=== PATIENT | male | born 1960 | race Caucasian/White ===

== ENCOUNTER 2016-06-29 18:27 | Observation (INO) | payer OTHER ==
[~2016-06-29] VITALS: Ht 180.3 cm; Wt 113.7 kg
[~2016-06-29 18:27] MED LIST: AMLO-110 PO; ASPEC81 PO; CLOP1TAB15 PO; CRS20 PO; GLC500 PO; HMLI SC; INSDGI SC; LISI40TA PO; METO25TA3 PO; NTRGSL/4 UT
[2016-06-29] MEDS ORDERED: SODIUM CHLORIDE 0.9% 1000ML 1,000 ML IV STA (18:57)
[2016-06-29] MEDS ORDERED: ALBUT/IPRATROP 3MG/0.5MG NEB 3 ML VIAL INH STA (18:59)
[2016-06-29] MEDS ORDERED: METF1000 PO (19:06)
[2016-06-29] MEDS ORDERED: INSU100I SQ (19:06)
[2016-06-29] MEDS ORDERED: ROSU20TA22 PO (19:06)
[2016-06-29] MEDS ORDERED: ASPI81TA21 PO (19:06)
[2016-06-29] MEDS ORDERED: INSDGI SC ×2 (19:06)
[2016-06-29] MEDS ORDERED: PLV75 PO (19:06)
[2016-06-29] MEDS ORDERED: WARF7.5T4 PO (19:07)
[2016-06-29] MEDS ORDERED: WARF5TAB7 PO (19:07)
--- NOTE | 2016-06-29 19:20 | DIAGNOSTIC IMAGING REPORT ---
CHEST ONE VIEW PORTABLE CLINICAL HISTORY: Shortness of breath. Respiratory distress. COMPARISON STUDY: Chest radiograph November 27, 2014. FINDINGS: Lung volumes are mildly diminished. This is unchanged. The patient is rotated. There are median sternotomy wires and clips from bypass grafting. There is no evidence of pulmonary edema. No consolidation is present. Mild cardiomegaly is unchanged. IMPRESSION: No acute findings. Stable cardiomegaly without evidence of pulmonary edema. Electronically signed by: Pal Blunt M.D. 06/29/2016 7:18 PM Dictated Date/Time: 06/29/2016 7:18 PM
--- NOTE | 2016-06-29 19:36 | EMERGENCY ROOM VISIT NOTE ---
History Report prepared by Hillary: Mil Urbina Under the Supervision of: Dr. Giorgio Mendiola D.O. First contact with patient: 18:52 Chief Complaint: RESPIRATORY PROBLEMS Stated Complaint: POSSIBLE PNEUMONIA Nursing Triage Summary: agnes note: pt to the ED with c/o cough and fever for several days and was sent over from dr nagy office History of Present Illness The patient is a 56 year old male who presents to the Emergency Room with complaints of persistent fever and fatigue that began one day prior to arrival. The patient states that his fever began last night and reached a temperature of 102.5 degrees. He has also been experiencing a persistent cough, which is worsened when he is laying flat. He denies any recent chest pain, or swelling in his legs. He has not vomited recently. The patient did have a flu shot this year, but did not receive a pneumonia shot. He has never had a diagnosis of pneumonia. The patient does have a history of triple bypass surgery, and is an insulin dependent diabetic. 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 A total of 10 systems reviewed and were otherwise negative. Past Medical & Surgical Medical Problems: (1) Benign hypertension (2) Carotid artery stenosis (3) Cerebrovascular disease (4) Coronary artery disease (5) Diab W Ophthal Manifest, Type Ii Or Unspec Type, Not Uncntrl (6) Diabetes mellitus type 2 (7) Diabetic retinopathy (8) Dyslipidemia (9) Old myocardial infarction (10) Retinal edema Surgical Problems: (1) AORTOCORONARY BYPASS Family History Diabetes mellitus Heart disease Hypertension Social History Smoking Status: Never Smoker Alcohol Use: none Drug Use: none Marital Status: Housing Status: lives with family Occupation Status: employed Current/Historical Medications Scheduled Amlodipine (Norvasc), 5 MG PO QAM Aspirin Enteric Coated (Ecotrin Or Generic), 81 MG PO QAM Azithromycin (Zithromax Z-Abdulaziz), 1 PKT PO UD Clopidogrel Bisulfate (Clopidogrel), 75 MG PO QAM Insulin Glargine (Lantus), 36 UNITS SC QAM Insulin Glargine (Lantus), 30 UNITS SC QPM Insulin Lispro (Human) (Humalog), 16 UNIT SQ AC Lisinopril (Zestril), 40 MG PO QAM Metformin Hcl (Glucophage), 1,000 MG PO BID Metoprolol Succ (Toprol Xl) (Toprol-Xl), 50 MG PO BID Nitroglycerin (Nitrostat), 0.4 MG UT PRN Rosuvastatin Calcium (Rosuvastatin Calcium), 20 MG PO QPM Warfarin Sodium (Warfarin Sodium), 0 PO UD Scheduled PRN Guaifenesin-Codeine (Robitussin-Ac Syrup), 5-10 ML PO Q4H PRN for Cough Allergies Coded Allergies: No Known Allergies (Unverified , 06/29/16) Physical Exam Vital Signs Date Time Temp Pulse Resp B/P Pulse Ox O2 Delivery O2 Flow Rate FiO2 06/29/16 22:29 94 18 144/85 94 Room Air 06/29/16 20:49 94 24 150/77 94 Room Air 06/29/16 19:17 96 06/29/16 19:14 95 Room Air 06/29/16 19:14 95 Room Air 06/29/16 18:30 37.0 96 18 165/86 95 Physical Exam GENERAL: Patient is awake, alert, and in no acute distress. Patient is resting comfortably and showing no signs of anxiety EYES: The conjunctivae are clear. The pupils are round and reactive. EARS, NOSE, MOUTH AND THROAT: Clear Rhinorrhea noted bilaterally. The nose is without any evidence of any deformity. Mucous membranes are moist tongue is midline. No swelling or erythema in the posterior oropharynx. NECK: The neck is nontender and supple. RESPIRATORY: Lung sounds diminished at both bases. No tachypnea, no conversational dyspnea noted. Normal respiratory effort is noted there is no evidence of wheezing rhonchi or rales CARDIOVASCULAR: Systolic murmur noted. Regular rate and rhythm noted there no rubs or gallops normal S1 normal S2 GASTROINTESTINAL: The abdomen is soft. Bowel sounds are present in all quadrants. Abdomen is nontender MUSCULOSKELETAL/EXTREMITIES: There is no evidence of gross deformity full range of motion is noted in the hips and shoulders SKIN: Trace pedal edema noted bilaterally. There is no obvious evidence of any rash. There are no petechiae, pallor or cyanosis noted. NEUROLOGIC: Patient is awake alert and oriented x3 strength is symmetric patellar reflexes are 2+ bilaterally Medical Decision & Procedures ER Provider Diagnostic Interpretation: X ray results and stated below per my interpretation and radiology interpretation. Other radiology results per my review and radiologist interpretation: CHEST ONE VIEW PORTABLE CLINICAL HISTORY: Shortness of breath. Respiratory distress. COMPARISON STUDY: Chest radiograph November 27, 2014. FINDINGS: Lung volumes are mildly diminished. This is unchanged. The patient is rotated. There are median sternotomy wires and clips from bypass grafting. There is no evidence of pulmonary edema. No consolidation is present. Mild cardiomegaly is unchanged. IMPRESSION: No acute findings. Stable cardiomegaly without evidence of pulmonary edema. Electronically signed by: Pal Blunt M.D. 06/29/2016 7:18 PM Dictated Date/Time: 06/29/2016 7:18 PM Laboratory Results 06/29/16 19:32 Red Blood Count 5.41, Mean Corpuscular Volume 76.2, Mean Corpuscular Hemoglobin 26.1, Mean Corpuscular Hemoglobin Concent 34.2, Mean Platelet Volume 9.8, Neutrophils (%) (Auto) 76.6, Lymphocytes (%) (Auto) 16.1, Monocytes (%) (Auto) 6.6, Eosinophils (%) (Auto) 0.2, Basophils (%) (Auto) 0.3, Neutrophils # (Auto) 8.54, Lymphocytes # (Auto) 1.80, Monocytes # (Auto) 0.74, Eosinophils # (Auto) 0.02, Basophils # (Auto) 0.03 06/29/16 19:32 Test 06/29/16 19:28 06/29/16 19:32 06/29/16 19:37 06/29/16 21:36 Influenza Type A Antigen Neg for Influ A (NEG) Influenza Type B Antigen Neg for Influ B (NEG) White Blood Count 11.15 K/uL (4.8-10.8) Red Blood Count 5.41 M/uL (4.7-6.1) Hemoglobin 14.1 g/dL (14.0-18.0) Hematocrit 41.2 % (42-52) Mean Corpuscular Volume 76.2 fL (80-100) Mean Corpuscular Hemoglobin 26.1 pg (25-34) Mean Corpuscular Hemoglobin Concent 34.2 g/dl (32-36) Platelet Count 255 K/uL (130-400) Mean Platelet Volume 9.8 fL (7.4-10.4) Neutrophils (%) (Auto) 76.6 % Lymphocytes (%) (Auto) 16.1 % Monocytes (%) (Auto) 6.6 % Eosinophils (%) (Auto) 0.2 % Basophils (%) (Auto) 0.3 % Neutrophils # (Auto) 8.54 K/uL (1.4-6.5) Lymphocytes # (Auto) 1.80 K/uL (1.2-3.4) Monocytes # (Auto) 0.74 K/uL (0.11-0.59) Eosinophils # (Auto) 0.02 K/uL (0-0.5) Basophils # (Auto) 0.03 K/uL (0-0.2) RDW Standard Deviation 40.9 fL (36.4-46.3) RDW Coefficient of Variation 14.7 % (11.5-14.5) Immature Granulocyte % (Auto) 0.2 % Immature Granulocyte # (Auto) 0.02 K/uL (0.00-0.02) Prothrombin Time 27.8 SECONDS (9.0-12.0) Prothromb Time International Ratio 2.5 (0.9-1.1) Activated Partial Thromboplast Time 43.3 SECONDS (21.0-31.0) Partial Thromboplastin Ratio 1.7 Anion Gap 15.0 mmol/L (3-11) Est Creatinine Clear Calc Drug Dose 107.7 ml/min Estimated GFR () 100.6 Estimated GFR (Non- 86.8 BUN/Creatinine Ratio 14.0 (10-20) Calcium Level 8.9 mg/dl (8.5-10.1) Total Bilirubin 0.5 mg/dl (0.2-1) Aspartate Amino Transf (AST/SGOT) 13 U/L (15-37) Alanine Aminotransferase (ALT/SGPT) 15 U/L (12-78) Alkaline Phosphatase 56 U/L (45-117) Total Creatine Kinase 353 U/L (39-308) Creatine Kinase MB 2.4 ng/ml (0.5-3.6) Creatine Kinase MB Ratio 0.7 (0-3.0) Pro-B-Type Natriuretic Peptide 1883 pg/ml (0-900) Total Protein 7.3 gm/dl (6.4-8.2) Albumin 3.4 gm/dl (3.4-5.0) Globulin 3.9 gm/dl (2.5-4.0) Albumin/Globulin Ratio 0.9 (0.9-2) Bedside Lactic Acid Venous 1.63 mmol/L (0.90-1.70) Troponin I 0.041 ng/ml (0-0.045) Laboratory results per my review. Medications Administered Medications (Trade) Dose Ordered Sig/Gabriel Route Start Time Stop Time Status Last Admin Dose Admin Sodium Chloride (Nss 1000ml) 1,000 ml @ 999 mls/hr Q1H1M STAT IV 06/29/16 18:57 06/29/16 19:57 DC 06/29/16 19:50 999 MLS/HR Albuterol/ Ipratropium (Duoneb) 3 ml NOW STAT INH 06/29/16 18:59 06/29/16 19:01 DC 06/29/16 19:53 3 ML Levofloxacin (Levaquin Tab) 750 mg NOW STAT PO 06/29/16 22:18 06/29/16 22:19 DC 06/29/16 22:27 750 MG ECG Indication: weakness Rate (beats per minute): 96 Rhythm: normal sinus Findings: nonspecific-ST abn, other (Poor R-wave progression) Comparison ECG Date: 11/29/2015 Change: no significant change Change: Repeat EKG was taken for this visit. This EKG showed no significant changes from previous. ED Course 1851: The patient was evaluated in room B2. A complete history and physical examination were performed. 7: Ordered Sodium Chloride 1000 mL @ 999 mL/hr IV. 1858: Ordered Albuterol INH 3 mL. 2204: I checked on the patient at this time. He is resting in bed. I discussed the treatment plan with him, he understands and is agreeable. 4: I discussed the case with Dr. Chavez [facility] Hospitalist, he will evaluate the patient for further treatment. Medical Decision The patient's history was concerning for headache. Differential diagnosis: Etiologies such as migraine headache, meningitis, sinusitis, CO exposure, ICH, SAH, infection, tumor, headache, sinus thrombosis, arterial dissection, as well as others were entertained. Nursing notes reviewed. The patient is a 56-year-old male who presented to the emergency department for an evaluation of difficulty breathing. The patient had a cough and difficulty breathing. He was seen by his primary care physician and sent to the emergency department for the possibility of pneumonia. The patient does have a significant cardiac history. His EKG was abnormal but appeared very similar to previous. His initial EKG was not over the abnormal limit but a repeat EKG was slightly elevated compared to previous. I discussed the patient's laboratory and radiographic studies with the patient and his significant other. I also discussed his case with the on-call [facility] hospitalist group. They've agreed to evaluate the patient in the emergency department for further management and disposition. The patient also felt that he may be dehydrated. For this reason he was even IV fluids. Consults Time Called: 2226 Consulting Physician: Dr. Scott Sanchez Returned Call: [phone] I discussed the case with Dr. Scott Sanchez, he will evaluate the patient for further treatment. Impression Primary Impression: Elevated troponin Additional Impressions: Bronchitis Chest discomfort Scribe Attestation The scribe's documentation has been prepared under my direction and personally reviewed by me in its entirety. I confirm that the note above accurately reflects all work, treatment, procedures, and medical decision making performed by me. Departure Information Dispostion Being Evaluated By Hospitalist Prescriptions Guaifenesin-Codeine (ROBITUSSIN-AC SYRUP) 1 Syp Syp 5-10 ML PO Q4H Y for Cough for 8 Days, #120 ML Caution: medication causes drowsiness Prov: Leda George, DO 06/30/16 Azithromycin (ZITHROMAX Z-ABDULAZIZ) 250 Mg Tab 1 PKT PO UD for 5 Days, #6 TAB Take two tabs PO on first day, then one tab daily until gone. Please follow packet instructions. Prov: Leda George, DO 06/30/16 Referrals Dereck Zaman D.O. (PCP) Patient Instructions [facility] Problem Qualifiers
[2016-06-29 19:50] LABS: BASO % 0.3 %; BASO ABS # 0.03 K/uL (0-0.2); COMPLETE YES; EOS % 0.2 %; HEMATOCRIT 41.2 % (42-52); IG% 0.2 %; LYMPH % 16.1 %; MEAN CELL VOLUME 76.2 fL (80-100); MEAN CORPUSCULAR HEMOGLOBIN 26.1 pg (25-34); MEAN CORPUSCULAR HGB CONC 34.2 g/dl (32-36); MEAN PLATELET VOLUME 9.8 fL (7.4-10.4); MONO % 6.6 %; NEUT % 76.6 %; PLATELET COUNT 255 K/uL (130-400); RED BLOOD COUNT 5.41 M/uL (4.7-6.1); WHITE BLOOD COUNT 11.15 K/uL (4.8-10.8)
[2016-06-29 20:04] LABS: INR 2.5 (0.9-1.1); PARTIAL THROMBOPLASTIN RATIO 1.7; PROTHROMBIN TIME (PATIENT) 27.8 SECONDS (9.0-12.0)
[2016-06-29 20:08] LABS: CALCIUM 8.9 mg/dl (8.5-10.1); CREATININE 0.96 mg/dl (0.60-1.40); POTASSIUM 3.9 mmol/L (3.5-5.1)
[2016-06-29 20:13] LABS: ALB/GLOB RATIO 0.9 (0.9-2); CKMB/CK RATIO 0.7 (0-3.0)
[2016-06-29] MEDS ORDERED: LEVOFLOXACIN 250 MG TAB PO STA (22:18)
--- NOTE | 2016-06-29 22:47 | History and Physical ---
History & Physical Date & Time of Service: Jun 29, 2016 at 22:47 . Chief Complaint: fever, cough . Primary Care Physician: Dereck Zaman D.O. . History of Present Illness Source: patient, clinic records, hospital records (56 YO) 56 YO [address] followed by Dr. Zaman. History of coronary artery disease, DM type 2, and other problems noted below. Developed nonproductive cough about 2 weeks ago. Tried Tessalon Perles and Mucinex without benefit. Cough worsened, but remained nonproductive. Spouse noted some wheezing. No significant SOB. No associated chest pain. Developed temp as high as 102.5 over past 24 hours. Seen in clinic and referred to ED for further evaluation. . Past Medical/Surgical History Chronic Medical Problems: (1) Anticoagulated on warfarin Permanent Comment: for embolic stroke Status: Chronic (2) Benign hypertension Status: Chronic (3) Carotid artery stenosis Status: Chronic (4) Cerebrovascular disease Status: Chronic (5) Coronary artery disease Permanent Comment: s/p UT, s/p CABG, s/p PCI Status: Chronic (6) Diabetes mellitus type 2 Status: Chronic (7) Diabetic retinopathy Status: Chronic (8) Dyslipidemia Status: Chronic (9) History of pancreatitis Status: Chronic Surgical Problems: (1) Status post coronary artery bypass grafting Status: Chronic (2) Status post coronary artery stent placement Status: Chronic . Family History Diabetes mellitus Heart disease Hypertension Social History Smoking Status: Never Smoker Alcohol Use: none Drug Use: none Marital Status: Housing status: lives with family Occupational Status: employed Immunizations History of Influenza Vaccine: Yes Influenza Vaccine Date: Mar 10, 2011 History of Tetanus Vaccine?: YES-UNKNOWN DATE, "RECENTLY" Tetanus Immunization Date: Nov 22, 2007 History of Pneumococcal: No Pneumococcal Date: May 08, 2001 History of Hepatitis B Vaccine: No Allergies Coded Allergies: No Known Allergies (Unverified , 06/29/16) Home Medications Scheduled Amlodipine (Norvasc), 5 MG PO QAM Aspirin Enteric Coated (Ecotrin Or Generic), 81 MG PO QAM Azithromycin (Zithromax Z-Abdulaziz), 1 PKT PO UD Clopidogrel Bisulfate (Clopidogrel), 75 MG PO QAM Insulin Glargine (Lantus), 36 UNITS SC QAM Insulin Glargine (Lantus), 30 UNITS SC QPM Insulin Lispro (Human) (Humalog), 16 UNIT SQ AC Lisinopril (Zestril), 40 MG PO QAM Metformin Hcl (Glucophage), 1,000 MG PO BID Metoprolol Succ (Toprol Xl) (Toprol-Xl), 50 MG PO BID Nitroglycerin (Nitrostat), 0.4 MG UT PRN Rosuvastatin Calcium (Rosuvastatin Calcium), 20 MG PO QPM Warfarin Sodium (Warfarin Sodium), 0 PO UD Scheduled PRN Guaifenesin-Codeine (Robitussin-Ac Syrup), 5-10 ML PO Q4H PRN for Cough Review of Systems Constitutional: + chills, + fever, + weight loss (few lbs intentionally), No sweats Eyes: No diplopia, No worsening of vision ENT: No hearing loss, No nasal symptoms, No sore throat Respiratory: + problem reported (as noted above) Cardiovascular: No chest pain, No edema Abdomen: No GI bleeding, No diarrhea, No nausea, No pain, No vomiting Musculoskeletal: No joint pain Genitourinary - Male: + urinary frequency, No dysuria, No hematuria Neurologic: + problem reported (no headache; no diabetic neuropathy) Endocrine: No excessive thirst, No excessive urination Hematologic / Lymphatic: No abnormal bleeding/bruising, No swollen lymph nodes Integumentary: No itch, No new/changing skin lesions, No rash Physical Exam Vital Signs Date Time Temp Pulse Resp B/P Pulse Ox O2 Delivery O2 Flow Rate FiO2 06/29/16 22:29 94 18 144/85 94 Room Air 06/29/16 20:49 94 24 150/77 94 Room Air 06/29/16 19:17 96 06/29/16 19:14 95 Room Air 06/29/16 19:14 95 Room Air 06/29/16 18:30 37.0 96 18 165/86 95 General Appearance: WD/WN, no apparent distress Head: normocephalic, atraumatic Eyes: normal inspection, PERRL, EOMI, sclerae normal, + pertinent finding ( conjunctivae pink) ENT: normal ENT inspection, hearing grossly normal, TMs normal, pharynx normal Neck: supple, no adenopathy, thyroid normal, no JVD, no carotid bruits, trachea midline Respiratory/Chest: no respiratory distress, no accessory muscle use, + rhonchi (few scattered rhonchi), + wheezing (diffuse mild wheezing) Cardiovascular: regular rate, rhythm, no edema, no gallop, no JVD, normal peripheral pulses, + systolic murmur (III/ systolic murmur at base) Abdomen/GI: normal bowel sounds, non tender, soft, no organomegaly, no pulsatile mass Extremities/Musculoskelatal: normal inspection, no calf tenderness, normal capillary refill, no pedal edema Neurologic/Psych: biologist aide II-XII nml as tested (PERRL, EOMI, no facial palsy, no dysarthria) Skin: normal color, warm/dry, no rash Lymphatic: no adenopathy Diagnostics Laboratory Results Results Past 24 Hours Test 06/29/16 19:28 06/29/16 19:32 06/29/16 19:37 06/29/16 21:36 Range/Units Influenza Type A Antigen Neg for Influ A NEG Influenza Type B Antigen Neg for Influ B NEG White Blood Count 11.15 4.8-10.8 K/uL Red Blood Count 5.41 4.7-6.1 M/uL Hemoglobin 14.1 14.0-18.0 g/dL Hematocrit 41.2 42-52 % Mean Corpuscular Volume 76.2 80-100 fL Mean Corpuscular Hemoglobin 26.1 25-34 pg Mean Corpuscular Hemoglobin Concent 34.2 32-36 g/dl Platelet Count 255 130-400 K/uL Mean Platelet Volume 9.8 7.4-10.4 fL Neutrophils (%) (Auto) 76.6 % Lymphocytes (%) (Auto) 16.1 % Monocytes (%) (Auto) 6.6 % Eosinophils (%) (Auto) 0.2 % Basophils (%) (Auto) 0.3 % Neutrophils # (Auto) 8.54 1.4-6.5 K/uL Lymphocytes # (Auto) 1.80 1.2-3.4 K/uL Monocytes # (Auto) 0.74 0.11-0.59 K/uL Eosinophils # (Auto) 0.02 0-0.5 K/uL Basophils # (Auto) 0.03 0-0.2 K/uL RDW Standard Deviation 40.9 36.4-46.3 fL RDW Coefficient of Variation 14.7 11.5-14.5 % Immature Granulocyte % (Auto) 0.2 % Immature Granulocyte # (Auto) 0.02 0.00-0.02 K/uL Prothrombin Time 27.8 9.0-12.0 SECONDS Prothromb Time International Ratio 2.5 0.9-1.1 Activated Partial Thromboplast Time 43.3 21.0-31.0 SECONDS Partial Thromboplastin Ratio 1.7 Sodium Level 136 136-145 mmol/L Potassium Level 3.9 3.5-5.1 mmol/L Chloride Level 98 98-107 mmol/L Carbon Dioxide Level 23 21-32 mmol/L Anion Gap 15.0 3-11 mmol/L Blood Urea Nitrogen 13 7-18 mg/dl Creatinine 0.96 0.60-1.40 mg/dl Est Creatinine Clear Calc Drug Dose 107.7 ml/min Estimated GFR () 100.6 Estimated GFR (Non- 86.8 BUN/Creatinine Ratio 14.0 10-20 Random Glucose 170 70-99 mg/dl Calcium Level 8.9 8.5-10.1 mg/dl Total Bilirubin 0.5 0.2-1 mg/dl Aspartate Amino Transf (AST/SGOT) 13 15-37 U/L Alanine Aminotransferase (ALT/SGPT) 15 12-78 U/L Alkaline Phosphatase 56 45-117 U/L Total Creatine Kinase 353 39-308 U/L Creatine Kinase MB 2.4 0.5-3.6 ng/ml Creatine Kinase MB Ratio 0.7 0-3.0 Troponin I 0.030 0.041 0-0.045 ng/ml Pro-B-Type Natriuretic Peptide 1883 0-900 pg/ml Total Protein 7.3 6.4-8.2 gm/dl Albumin 3.4 3.4-5.0 gm/dl Globulin 3.9 2.5-4.0 gm/dl Albumin/Globulin Ratio 0.9 0.9-2 Bedside Lactic Acid Venous 1.63 0.90-1.70 mmol/L Microbiology Results 06/29/16 Blood Culture, Received Pending 06/29/16 Blood Culture, Received Pending Diagnostic Radiology CHEST ONE VIEW PORTABLE IMPRESSION: No acute findings. Stable cardiomegaly without evidence of pulmonary edema. Electronically signed by: Pal Blunt M.D. 06/29/2016 7:18 PM . EKG EKG performed at 19:10 reviewed and demonstrated NSR at 96 / minute, ST depression + inverted T-waves I, aVL, Q-waves + 1-[address] elevation III, aVF, poor R-wave progression. Tracing compared to 11/28/14- rate now faster, ST and T-wave changes similar in appearance. . Impression Assessment and Plan FEVER / COUGH No infiltrates on chest x-ray. Probable bronchitis. ROUNDER HAND swab for influenza A/B Ag negative in ED; check PCR. Received dose of levofloxacin in ED; will continue tentatively for 48 hrs pending results. BRONCHOSPASM Mild diffuse wheezing. Albuterol MDI PRN. Consider steroids if symptoms worsen. CORONARY ARTERY DISEASE History of CAD, s/p CABG and subsequent PCI. No anginal symptoms. CPK slightly elevated- suspect nonspecific elevation due to febrile illness. Troponins in ED negative. Check repeat cardiac markers in a.m. Continue aspirin, clopidogrel, metoprolol, amlodipine, statin. SYSTOLIC HEART MURMUR Followed by Cardiology for moderate . HYPERTENSION Continue metoprolol, amlodipine. HISTORY STROKE History of nonhemorrhagic stroke, apparently embolic. Continue warfarin. SLEEP APNEA No longer using CPAP. DM TYPE 2 Fairly well-controlled at home. Check hemoglobin A1C. Hold metformin during hospital stay. Lantus / NovoLog per protocol. VACCINATION STATUS Has received pneumococcal vaccination in the past and influenza vaccination this season. VTE PROPHYLAXIS Moderate risk for VTE. Continue warfarin. RESUSCITATION STATUS Full resuscitation. DISPOSITION Observation status on Telemetry Unit. Expected discharge to home. Internal Medicine follow-up with Dr. Zaman. Cardiology follow-up with Dr. Huff. . VTE Prophylaxis Risk Level: Moderate Given or contraindicated: Warfarin (Coumadin) Additional Copies To Meliton Huff D.O.; Dereck Zaman D.O.
[2016-06-29] MEDS ORDERED: WARF-246 PO (22:58)
[2016-06-29] MEDS ORDERED: NITROGLYCERIN 0.4 MG SL PER TAB CHARGE SL PRN (23:00)
[2016-06-29] MEDS ORDERED: ACETAMINOPHEN 325 MG TAB PO PRN (23:00)
[2016-06-29] MEDS ORDERED: WARFARIN SOD 7.5 MG TAB PO ONE (23:45)
[2016-06-29] MEDS ORDERED: INSULIN GLARGINE SOLOSTAR 100 UNITS/ML 3 ML PEN SC ONE (23:45)
[2016-06-29] MEDS ORDERED: ROSUVASTATIN CALCIUM 20 MG TAB PO ONE (23:45)
[2016-06-30] MEDS ORDERED: ALBUTEROL HFA 8 GM INHALER INH PRN
[2016-06-30] MEDS ORDERED: METOPROLOL SUCC 25MG EXT REL TAB PO ONE (00:09)
[2016-06-30] MEDS ORDERED: IV FLUIDS COMPLETED PRN (00:30)
[2016-06-30 00:40] VITALS: BP 126/76; PULSE 102; TEMP 37.3; O2SAT 94; BMI 35.0
[2016-06-30] MEDS ORDERED: DEXTROSE 50% 50 ML SYR IV PRN (01:30)
[2016-06-30] MEDS ORDERED: GLUCAGON FOR INJ 1 MG VIAL SQ PRN (01:30)
[2016-06-30] MEDS ORDERED: GLUCOSE 10 TABS/TUBE PO PRN (01:30)
[2016-06-30] MEDS ORDERED: GLUCOSE 40% GEL 15 GM TUBE PO PRN (01:30)
[2016-06-30 04:00] VITALS: O2SAT 94
[2016-06-30 04:24] LABS: INFLUENZA A PCR Neg for Influ A (NEG); INFLUENZA B PCR Neg for Influ B (NEG)
[2016-06-30 04:43] LABS: URINE APPEARANCE CLEAR (CLEAR); URINE BILIRUBIN NEG (NEG); URINE COLOR YELLOW; URINE NITRITE NEG (NEG); URINE SPECIFIC GRAVITY 1.013 (1.000-1.030); UROBILINOGEN NEG (NEG)
[2016-06-30 04:48] LABS: MANUAL MICROSCOPIC REQUIRED? NO; REVIEW REQ? NO
[2016-06-30] MEDS ORDERED: GUAIFENESIN SUGAR FREE 200 MG/10 ML UDC PO PRN (05:45)
[2016-06-30 06:39] LABS: HEMATOCRIT 37.9 % (42-52); MEAN CELL VOLUME 76.3 fL (80-100); MEAN CORPUSCULAR HEMOGLOBIN 25.8 pg (25-34); MEAN CORPUSCULAR HGB CONC 33.8 g/dl (32-36); MEAN PLATELET VOLUME 9.7 fL (7.4-10.4); PLATELET COUNT 208 K/uL (130-400); RED BLOOD COUNT 4.97 M/uL (4.7-6.1); WHITE BLOOD COUNT 9.36 K/uL (4.8-10.8)
[2016-06-30 06:41] LABS: ESTIMATED AVERAGE GLUCOSE 223 mg/dl; HA1C FLAG Normal (Normal)
[2016-06-30 06:50] LABS: INR 2.4 (0.9-1.1); PROTHROMBIN TIME (PATIENT) 26.1 SECONDS (9.0-12.0)
[2016-06-30 07:12] LABS: BUN/CREATININE RATIO 11.6 (10-20); CALCIUM 8.4 mg/dl (8.5-10.1); POTASSIUM 3.8 mmol/L (3.5-5.1)
[2016-06-30 07:16] LABS: CKMB/CK RATIO 0.4 (0-3.0)
[2016-06-30 08:11] VITALS: BP 121/71; PULSE 96; TEMP 36.9; O2SAT 94
[2016-06-30] MEDS: INSULIN ASPART 100 UNITS/ML 3 ML PEN SC SCH ×2 (08:29→12:33)
[2016-06-30] MEDS ORDERED: ASPIRIN 81 MG ECTAB PO SCH (09:00)
[2016-06-30] MEDS ORDERED: LISINOPRIL 40 MG TAB PO SCH (09:00)
[2016-06-30] MEDS ORDERED: METOPROLOL SUCC 25MG EXT REL TAB PO SCH (09:00)
[2016-06-30] MEDS ORDERED: CLOPIDOGREL BISULFATE 75 MG TAB PO SCH (09:00)
[2016-06-30] MEDS ORDERED: AMLODIPINE BESYLATE 5 MG TAB PO SCH (09:00)
[2016-06-30] MEDS ORDERED: INSULIN GLARGINE SOLOSTAR 100 UNITS/ML 3 ML PEN SC SCH ×2 (09:00→21:00)
[2016-06-30 10:00] VITALS: Ht 180.3 cm; Wt 113.7 kg
[2016-06-30 10:25] LABS: URINE APPEARANCE CLEAR (CLEAR); URINE BILIRUBIN NEG (NEG); URINE COLOR YELLOW; URINE EPITHELIAL CELL AUTO 0-5 /lpf (0-5); URINE NITRITE NEG (NEG); URINE SPECIFIC GRAVITY 1.019 (1.000-1.030); UROBILINOGEN NEG (NEG); ZZUR CULT IF INDIC CLEAN CATCH NO
[2016-06-30 10:35] LABS: MANUAL MICROSCOPIC REQUIRED? NO; REVIEW REQ? NO
[2016-06-30 11:20] VITALS: BP 169/87; PULSE 95; TEMP 38.3; O2SAT 94
[2016-06-30] MEDS ORDERED: GUAISYP5 PO (11:27)
[2016-06-30] MEDS ORDERED: AZITTAB PO (11:27)
[2016-06-30 12:32] VITALS: TEMP 37.9
--- NOTE | 2016-06-30 12:36 | Discharge Instructions ---
Discharge Instructions Admission Reason for Admission: Asthmatic Bronchitis;Coronary Artery Disease Discharge Discharge Diagnosis / Problem: URTI Discharge Goals Goal(s): Prevent Disease Progression Activity Recommendations Activity Limitations: resume your previous activity . Instructions / Follow-Up Instructions / Follow-Up Please take all medications as instructed. You have a follow-up appointment with Dr. Zaman for Henry, 07/05 @ 1250. Please bring all paperwork from this hospitalization and arrive 15 minutes early. At discharge your blood cultures were still pending. This can be reviewed in follow-up. During your hospitalization you had a 10 second run of atrial tachycardia that occurred once. You are currently on a beta-josé (Toprol) which is the treatment for this, however, I would recommend a follow-up appointment with Dr. Huff or a call to his office just to make him aware with your history. It was a pleasure taking care of you! Call if you have any questions or problems. You can reach a [facility] hospitalist on duty at [facility] 24 hours a day by calling [phone]. Take care of yourself. Leda George DO [facility] Hospitalist Current Hospital Diet Patient's current hospital diet: AHA Diet (Heart Healthy), Diabetes Type 2 Diet Discharge Diet Recommended Diet: AHA Diet (Heart Healthy), Diabetes Type 2 Diet Procedures Procedures Performed: None Pending Studies Studies pending at discharge: yes List of pending studies: Blood cultures Laboratory Results Hemoglobin A1c Test 06/30/16 06:18 Range/Units Estimated Average Glucose 223 mg/dl Hemoglobin A1c 9.4 H 4.5-5.6 % Medical Emergencies . Who to Call and When: Medical Emergencies: If at any time you feel your situation is an emergency, please call 911 immediately. . Non-Emergent Contact Non-Emergency issues call your: Primary Care Provider . . "Provider Documentation" section prepared by Leda George. VTE Core Measure Inpt VTE Proph given/why not?: Warfarin (Coumadin) [place] Drug Monitoring Program Search Results: patient reviewed within database, no issues identified
[2016-06-30 13:33] VITALS: BP 169/87; PULSE 95; TEMP 37.9; O2SAT 94
[2016-06-30] MEDS ORDERED: WARFARIN SOD 7.5 MG TAB PO SCH (16:00)
[2016-06-30] MEDS ORDERED: ROSUVASTATIN CALCIUM 20 MG TAB PO SCH (21:00)
[2016-06-30] MEDS ORDERED: LEVOFLOXACIN 750 MG TAB PO SCH (22:00)
[2016-07-01] MEDS ORDERED: WARFARIN SOD 5 MG TAB PO SCH (16:00)
--- NOTE | 2016-07-05 11:49 | EDITING REQUIRED CODING QUERY ---
CODING QUERY Dr. Chavez Date of Service 06/29/16 To promote full compliance with coding requirements relating to patient care, provider participation is requested in all cases of sub prior uncertainty. Please assist us with the question(s) below: Coding Question(s): Please provide reason for cough and fever if applicable. ( x ) Bronchitis ( ) Upper respiratory tract infection ( ) Other: ( ) Pneumonia Physician's Response(s): Thank you Leslee Galdamez Principal Diagnosis: "_that condition established after study, to be chiefly responsible for occasioning the admission of the patient to the hospital for care." Co-Existing Principal Diagnosis: "_when two or more diagnoses equally meet the criteria for principal diagnosis as determined by the circumstances of admission, diagnostic work up, and/or therapy provided, and the Alphabetic Index, Tabular List, or another coding guideline does not provide sequencing direction, any one of the diagnoses may be sequenced first." "When the physician has documented what appears to be a current diagnosis in the body of the record, but has not included the diagnosis in the final diagnostic statement, the physician should be asked whether the diagnosis should be added." (Source [facility]oding [facility] 2 QTR90. p3-4)
--- NOTE | 2016-07-08 06:05 | Discharge Summary ---
Discharge Summary Admission Date: Jun 29, 2016 at 23:01 Discharge Date: Jun 30, 2016 Discharge Disposition: Home Principal Diagnosis: Acute Bronchitis h/o CA Diabetes II Procedures: None Vaccinations: None Consultations: None Pending Studies/Follow-Up: see instructions below Medication Reconciliation New Medications: Guaifenesin-Codeine (Robitussin-Ac Syrup) 1 Syp Syp 5-10 ML PO Q4H PRN for Cough for 8 Days, #120 ML Caution: medication causes drowsiness Continued Medications: Amlodipine (Norvasc) 5 Mg Tab 5 MG PO QAM, TAB Aspirin Enteric Coated (Ecotrin Or Generic) 81 Mg Tab 81 MG PO QAM, TAB Clopidogrel Bisulfate (Clopidogrel) 75 Mg Tab 75 MG PO QAM Insulin Glargine (Lantus) 100 Unit/Ml Inj 36 UNITS SC QAM, VIAL Insulin Glargine (Lantus) 100 Unit/Ml Inj 30 UNITS SC QPM, VIAL Insulin Lispro (Human) (Humalog) 100 Unit/Ml Inj 16 UNIT SQ AC Lisinopril (Zestril) 40 Mg Tab 40 MG PO QAM Metformin Hcl (Glucophage) 1,000 Mg Tab 1000 MG PO BID, TAB Metoprolol Succ (Toprol Xl) (Toprol-Xl) 25 Mg Tabcr 50 MG PO BID Nitroglycerin (Nitrostat) 0.4 Mg Tab 0.4 MG UT PRN, 0 Refills Rosuvastatin Calcium (Rosuvastatin Calcium) 20 Mg Tab 20 MG PO QPM Warfarin Sodium (Warfarin Sodium) 5 Mg Tab 0 PO UD, TAB Dose as of 06/17/16: 5 mg on Sun and Thurs 7.5 mg on Mon, Tu, Wed, Fri, Sat Admission Information HPI (per Admitting provider): 56 YO male followed by Dr. Zaman. History of coronary artery disease, DM type 2, and other problems noted below. Developed nonproductive cough about 2 weeks ago. Tried Tessalon Perles and Mucinex without benefit. Cough worsened, but remained nonproductive. Spouse noted some wheezing. No significant SOB. No associated chest pain. Developed temp as high as 102.5 over past 24 hours. Seen in clinic and referred to ED for further evaluation. . Physical Exam (per Admitting): General Appearance: WD/WN, no apparent distress Head: normocephalic, atraumatic Eyes: normal inspection, PERRL, EOMI, sclerae normal, + pertinent finding ( conjunctivae pink) ENT: normal ENT inspection, hearing grossly normal, TMs normal, pharynx normal Neck: supple, no adenopathy, thyroid normal, no JVD, no carotid bruits, trachea midline Respiratory/Chest: no respiratory distress, no accessory muscle use, + rhonchi (few scattered rhonchi), + wheezing (diffuse mild wheezing) Cardiovascular: regular rate, rhythm, no edema, no gallop, no JVD, normal peripheral pulses, + systolic murmur (III/ systolic murmur at base) Abdomen/GI: normal bowel sounds, non tender, soft, no organomegaly, no pulsatile mass Extremities/Musculoskelatal: normal inspection, no calf tenderness, normal capillary refill, no pedal edema Neurologic/Psych: skating carhop II-XII nml as tested (PERRL, EOMI, no facial palsy, no dysarthria) Skin: normal color, warm/dry, no rash Lymphatic: no adenopathy Hospital Course 56 yoM with fever onset one day [employer] to ER along with dyspnea; reported Tm 102.5F with h/o CABG and diabetes. He was seen by his PCP and sent to the ER for evaluation. Initial vitals in the ER are 165/86, P96, T 37C, RR 18 and 95% on room air. In the ER lung sounds were diminished at the bases but normal respiratory effort was noted and there was no evidence of wheezing, rhonchi or rales. A CXR revealed no acute findings. A CBC and CMP were within normal limits aside from a mild leukocytosis at 11K. He was given 1L NS, a Duobneb treatment and started on Levaquin 750. He was admitted overnight for observation. Flu swab was checked and negative. Blood cultures were also checked and negative. The following morning, the patient appeared improved demonstrating no increased work of breathing. He was afebrile, tolerating PO and overall felt better with an improvement in his symptoms. He was asking to go home. He was sent home in stable condition with azithromycin (Z-juana) and close follow-up with PCP. Total time spent on discharge = 60 minutes This includes examination of the patient, discharge planning, medication reconciliation, and communication with other providers. Discharge Instructions Discharge Instructions Admission Reason for Admission: Asthmatic Bronchitis;Coronary Artery Disease Discharge Discharge Diagnosis / Problem: URTI Discharge Goals Goal(s): Prevent Disease Progression Activity Recommendations Activity Limitations: resume your previous activity . Instructions / Follow-Up Instructions / Follow-Up Please take all medications as instructed. You have a follow-up appointment with Dr. Zaman for Mon, 07/05 @ 1250. Please bring all paperwork from this hospitalization and arrive 15 minutes early. At discharge your blood cultures were still pending. This can be reviewed in follow-up. During your hospitalization you had a 10 second run of atrial tachycardia that occurred once. You are currently on a beta-josé (Toprol) which is the treatment for this, however, I would recommend a follow-up appointment with Dr. Huff or a call to his office just to make him aware with your history. It was a pleasure taking care of you! Call if you have any questions or problems. You can reach a [facility] hospitalist on duty at [facility] 24 hours a day by calling [phone]. Take care of yourself. Leda George, DO [facility] Additional Copies To Dereck Zaman D.O.
[2017-02-18] MEDS ORDERED: WARF5TAB7 PO (09:04)
[2017-02-24] MEDS ORDERED: ENOX120I SQ (08:41)
== END 2016-06-30 14:07 | disposition home or self-care (01) ==
LOC: ENRESERVTM → ENRESERVDT → C.EDB 18:27 → UNDOADMOB 23:01 → C.MED 23:01 → EDBEDREQ 23:52
PROVIDERS: ADMIT Hospitalist; ATTEND Hospitalist
DX: J20.9 Acute bronchitis, unspecified (principal); J06.9 Acute upper respiratory infection, unspecified; I10 Essential (primary) hypertension; I25.10 Atherosclerotic heart disease of native coronary artery without angina pectoris; E11.319 Type 2 diabetes mellitus with unspecified diabetic retinopathy without macular edema; E78.5 Hyperlipidemia, unspecified; I25.2 Old myocardial infarction; Z83.3 Family history of diabetes mellitus; Z82.49 Family history of ischemic heart disease and other diseases of the circulatory system; Z79.82 Long term (current) use of aspirin; Z79.4 Long term (current) use of insulin; Z95.1 Presence of aortocoronary bypass graft; Z79.899 Other long term (current) drug therapy; Z79.01 Long term (current) use of anticoagulants; G47.30 Sleep apnea, unspecified

== ENCOUNTER → 2017-02-24 | Day surgery (SDC) | payer OTHER ==
[2017-02-18 09:07] VITALS: Ht 180.3 cm; Wt 111.4 kg
[~2017-02-24] VITALS: Ht 180.3 cm; Wt 111.4 kg
[~2017-02-24] MED LIST changes: -ASPEC81 PO; +ASPI81TA21 PO; -CLOP1TAB15 PO; -CRS20 PO; +ENOX120I SQ; -GLC500 PO; -HMLI SC; +INSU100I SQ; +LIDOCAINE HCL 2% 2 ML VIAL (20MG/ML) ONE; +METF1000 PO; +PLV75 PO; +PROPOFOL IV EMULSION 10 MG/ML 20 ML VIAL IV ONE; +ROSU20TA22 PO; +SODIUM CHLORIDE 0.9% 500ML 500 ML IV ONE; +WARF5TAB7 PO
--- NOTE | 2017-02-24 09:13 | Endo History and Physical ---
History & Physical Date of Service: Feb 24, 2017. Chief Complaint: HISTORY OF POLYPS Referring Physician: DR CURIEL History of Present Illness H/o polyps Past Medical History Diabetes, Angioplasty/Stent, Heart Disease, Hypertension, SC Past Surgical History Hx Cardiac Surgery: Yes (HEART CATH X3, STENTS X3; CABG X3 VESSELS) Hx Internal Defibrillator: No Hx Pacemaker: No Hx Abdominal Surgery: No Hx of Implantable Prosthesis: No Hx Post-Op Nausea and Vomiting: No Hx Cancer Surgery: No Hx Thoracic Surgery: No Hx Orthopedic: No Hx Urinary Tract Surgery: No Family History None Social History Smoking Status: Former Smoker Hx Substance Use: No Hx Alcohol Use: No Allergies Coded Allergies: No Known Allergies (Unverified , 02/24/17) Current Medications Reported Home Medications Medications Dose Route/Sig Max Daily Dose Days Date Category Dose Instructions Lovenox (Enoxaparin Sodium) 120 Mg/0.8 Ml Inj 120 Mg SQ Q12H PRN 02/24/17 Reported Jantoven (Warfarin Sodium) 5 Mg Tab 1.5 Tabs PO QPM 02/18/17 Reported Clopidogrel (Clopidogrel Bisulfate) 75 Mg Tab 75 Mg PO QAM 06/29/16 Reported Lantus (Insulin Glargine) 100 Unit/Ml Inj 30 Units SC QPM 06/29/16 Reported Lantus (Insulin Glargine) 100 Unit/Ml Inj 36 Units SC QAM 06/29/16 Reported Humalog (Insulin Lispro (Human)) 100 Unit/Ml Inj 16 Unit SQ AC 06/29/16 Reported + SLIDING SCALE Ecotrin Or Generic (Aspirin) 81 Mg Tab 81 Mg PO QAM 06/29/16 Reported Rosuvastatin Calcium 20 Mg Tab 20 Mg PO QPM 06/29/16 Reported Glucophage (Metformin Hcl) 1,000 Mg Tab 1,000 Mg PO BID 06/29/16 Reported Norvasc (Amlodipine Besylate) 5 Mg Tab 5 Mg PO QAM 04/04/15 Reported Nitrostat (Nitroglycerin) 0.4 Mg Tab 0.4 Mg UT PRN 07/11/11 Reported Toprol-Xl (Metoprolol Succinate) 25 Mg Tabcr 2 Tabs PO BID 07/11/11 Reported Zestril (Lisinopril) 40 Mg Tab 40 Mg PO QAM 07/11/11 Reported Vital Signs Weight (Kilograms): 111.36 Height (Feet): 5 Height (Inches): 11 Date Time Temp Pulse Resp B/P (MAP) Pulse Ox O2 Delivery O2 Flow Rate FiO2 02/24/17 08:49 36.3 65 20 158/72 (100) 97 Room Air Physical Exam General Appearance: no apparent distress Respiratory/Chest: Respiratory effort: no dyspnea Auscultation: breath sounds normal Cardiovascular: Heart Auscultation: RRR Abdomen: Inspection & Palpation: soft Assessment and Plan H/o polyps - cscopy
--- NOTE | 2017-02-24 09:45 | Discharge Instructions ---
Endoscopy Patient Instructions Date / Procedure(s) Performed Feb 24, 2017. Colonoscopy Allergy Information Coded Allergies: No Known Allergies (Unverified , 02/24/17) Discharge Date / Findings Feb 24, 2017. colon polyp Medication Instructions Stopped Medication(s): ASPIRIN 02/24/17, WARFARIN 02/18/17, PLAVIX 02/24/17, LOVENOX 02/22/17, METFORMIN 02/20/17 Resume coumadin and lovenox today Provider Instructions Activity Restrictions - No exercising or heavy lifting for 24 hours. - Do not drink alcohol the day of the procedure. - Do not drive a car or operate machinery until the day after the procedure. - Do not make any important decisions or sign important papers in 24 hours after the procedure. Following Day: - Return to full activity which may include returning to work/school. Diet Start your diet with liquids and light foods (jello, soup, juice, toast). Then eat your usual diet if not nauseated. Treatment For Common After Affects For mild abdominal pain, bloating, or excessive gas: - Rest - Eat lightly - Lie on right side Follow-Up Information Follow-up with DR CURIEL as scheduled Anesthesia Information What You Should Know You have had a procedure that required some medicine to reduce anxiety and discomfort. This treatment is called moderate sedation. After receiving the treatment, you may be sleepy, but you will be able to breathe on your own. The effects of the treatment may last for several hours. Follow these instructions along with Activity/Diet recommendations noted above: * Do NOT do anything where dizziness or clumsiness would be dangerous. * Rest quietly at home today, then you can be up and about tomorrow. * Have a responsible person stay with you the rest of today. * You may have had an I.V. today. If so, you may take the dressing off later today. Recommendations Call your doctor if: * Trouble breathing * Continuous vomiting for more than 24 hours * Temperature above 101 degrees * Severe abdominal pain or bloating * Pain not relieved by pain medicine ordered * There is increased drainage or redness from any incision * A large amount of rectal bleeding greater than 2-3 tablespoons. (If you had a polyp/s removed or have hemorrhoids, a small amount of blood - from the rectum is to be expected.) * You have any unanswered questions or concerns. IN THE EVENT OF A SERIOUS EMERGENCY, GO TO THE NEAREST EMERGENCY ROOM Your discharge instructions were prepared by provider Sasha Lopez. Patient Instructions Signature Page Deja Sonidelfin Patient (or Guardian) Signature/Date: I have read and understand the instructions given to me by my caregivers. Caregiver/RN/Doctor Signature/Date: The above-named patient and/or guardian has received patient instructions on this date. + Original Patient Signature Page (only) stays with chart. Please make copy for patient.
--- NOTE | 2017-02-24 10:14 | GI REPORT ---
Procedure Date: 02/24/2017 9:11 AM Procedure: Colonoscopy Indications: High risk colon cancer surveillance: Personal history of colonic polyps - 2 polyps in 2014 Medicines: See the Anesthesia note for documentation of the administered medications Complications: No immediate complications. Estimated Blood Loss: Estimated blood loss: none. Procedure: Pre-Anesthesia Assessment: - ASA Grade Assessment: III - A patient with severe systemic disease. After I obtained informed consent, the scope was passed under direct vision. Throughout the procedure, the patient's blood pressure, pulse, and oxygen saturations were monitored continuously. The scope was introduced through the anus and advanced to the cecum, identified by appendiceal orifice and ileocecal valve. The colonoscopy was performed without difficulty. The patient tolerated the procedure well. The quality of the bowel preparation was good. Findings: The perianal and digital rectal examinations were normal. A 5 mm polyp was found at the hepatic flexure. The polyp was sessile. The polyp was removed with a cold snare. Resection and retrieval were complete. Site was clipped. The exam was otherwise without abnormality. Impression: - One 5 mm polyp at the hepatic flexure, removed with a cold snare. Resected and retrieved. - The examination was otherwise normal. Recommendation: - Discharge patient to home. Repeat exam in 5 years pending pathology review. Sasha Bills M.D. Sasha Bills MD 02/24/2017 10:14:15 AM This report has been signed electronically. Note Initiated On: 02/24/2017 9:11 AM I attest to the content of the Intraoperative Record and orders documented therein, exceptions below
[2017-02-24 10:15] VITALS: BP 138/74; PULSE 59; O2SAT 98
--- NOTE | 2017-02-24 10:15 | Anesthesiology Progress Note ---
Anesthesia Post Op Note Date & Time Feb 24, 2017 at 10:14 Vital Signs Pain Intensity: 0 Vital Signs Past 12 Hours Date Time Temp Pulse Resp B/P (MAP) Pulse Ox O2 Delivery O2 Flow Rate FiO2 02/24/17 10:00 64 16 131/80 (97) 98 Room Air 02/24/17 09:45 63 16 132/65 (87) 99 Room Air 02/24/17 08:49 36.3 65 20 158/72 (100) 97 Room Air Notes Mental Status: alert / awake / arousable, participated in evaluation Pt Amnestic to Procedure: Yes Nausea / Vomiting: adequately controlled Pain: adequately controlled Airway Patency, RR, SpO2: stable & adequate BP & HR: stable & adequate Hydration State: stable & adequate Anesthetic Complications: no major complications apparent
== END | disposition home or self-care (01) ==
LOC: C.GI 08:15
PROVIDERS: ATTEND Internal Medicine Gastroenterology
DX: Z12.11 Encounter for screening for malignant neoplasm of colon (principal); D12.3 Benign neoplasm of transverse colon; E11.9 Type 2 diabetes mellitus without complications; I10 Essential (primary) hypertension; I25.2 Old myocardial infarction; Z87.891 Personal history of nicotine dependence; Z86.010 Personal history of colon polyps; Z79.01 Long term (current) use of anticoagulants; Z79.899 Other long term (current) drug therapy; Z79.4 Long term (current) use of insulin; Z79.84 Long term (current) use of oral hypoglycemic drugs; Z95.5 Presence of coronary angioplasty implant and graft

== ENCOUNTER 2018-09-08 09:12 | Inpatient (IN) ==
[2018-09-08] MEDS ORDERED: PIPERACILLIN/TAZOBACTAM 4.5 GM/120 ML BAG IV ONE (09:34)
[2018-09-08] MEDS ORDERED: SODIUM CHLORIDE 0.9% 1000ML 1,000 ML IV ONE (09:34)
--- NOTE | 2018-09-08 09:52 | XRay Report ---
XR chest 1V portable HISTORY: Sepsis COMPARISON: Chest 11/30/2017. FINDINGS: There are low lung volumes. No pneumothorax. No pleural effusions. The heart is borderline enlarged. This remains unchanged. Poststernotomy changes. The lungs are clear. IMPRESSION: No significant change compared to the prior study. No acute process. Electronically signed by: Chris Bowens M.D. 09/08/2018 9:50 AM
[2018-09-08 10:11] LABS: Basophils # (auto) 0.03 K/uL (0-0.2); Basophils % (auto) 0.3 %; Eosinophils % (auto) 1.1 %; Hematocrit (blood only) 41.7 % (42-52); Immature Granulocytes # (auto) 0.02 K/uL (0.00-0.02); Immature Granulocytes % (auto) 0.2 %; Lymphocytes # (auto) 1.39 K/uL (1.2-3.4); Lymphocytes % (auto) 14.9 %; Mean Corpuscular Hgb Conc 33.6 g/dL (32-36); Mean Platelet Volume 10.5 fL (7.4-10.4); Monocytes % (auto) 10.7 %; Neutrophils # (auto) 6.78 K/uL (1.4-6.5); Neutrophils % (auto) 72.8 %; Platelet Count 207 K/uL (130-400); RDW Coefficient of Variation 15.1 % (11.5-14.5); RDW Standard Deviation 43.7 fL (36.4-46.3); Red Blood Count 5.21 M/uL (4.7-6.1); White Blood Count 9.32 K/uL (4.8-10.8)
[2018-09-08 10:32] LABS: INR 3.5 (0.9-1.1); Partial Thromboplastin Ratio 1.7; Prothrombin Time 32.8 Seconds (9.0-12.0)
[2018-09-08 10:50] LABS: Albumin Level 3.4 gm/dl (3.4-5.0); BUN Creatinine Ratio 15.4 (10-20); Calcium 9.3 mg/dl (8.5-10.1); Creatinine Clr Calc Pharmacy 66.7 ml/min; Est GFR (African American) 63.4; Est GFR (Non-African American) 54.7; Magnesium 1.7 mg/dl (1.8-2.4); Potassium 3.9 mmol/L (3.5-5.1)
[2018-09-08 10:53] LABS: Albumin Globulin Ratio 0.8 (0.9-2); Bilirubin,Total 0.4 mg/dl (0.2-1); Globulin 4.2 gm/dl (2.5-4.0); Total Protein 7.6 gm/dl (6.4-8.2)
[2018-09-08 10:56] LABS: Partial Thromboplastin Time 45.1 Seconds (21.0-31.0)
[2018-09-08 12:52] LABS: Appearance Urine Clear (Clear); Bilirubin Urine Negative (Negative); Blood Urine Negative (Negative); Color Urine Yellow; Glucose Urine UA Negative (Negative); Ketones Urine Negative (Negative); Leukocyte Esterase Urine Negative (Negative); Nitrite Urine Negative (Negative); Protein Urine Negative (Negative); Specific Gravity Urine 1.021 (1.000-1.030); Urobilinogen Urine Negative (Negative)
--- NOTE | 2018-09-08 13:29 | History & Physical Report ---
Date of Service September 08, 2018 Assessment & Plan (1) Sepsis: (2) Hypotension: Pt presented to ER with c/o slight nonproductive cough, rhinorrhea and sneezing x couple of days. States this morning was having generalized weakness. At PCPs office was noted to be hypotensive with SBP in 80s and patient had episode of diarrhea while in office. In ER T: 36.9, P: 74, RR: 16, BP 80/52 to 112/57, 98% on room air. WBC: 9, lactic acid: 2.8, negative influenza A Ag. CXR: no acute changes -In ER was given 1 LNSS, zosyn DDX: C-diff, osteomyelelitis source -pending influenza PCR, UA and urine culture -pending blood cultures -trend lactate -CT abd/pelvis pending -pending c-diff, stool cultures -hold clindamycin for now and will cefepime -will hold on antibiotics for possible c-diff at this time and consider empirically starting if recurrent diarrhea (3) Osteomyelitis: history of ulcer and osteomyelitis to R distal first phalanx toe without abscess seen on MRI 08/22/18. Has been on clindamycin for 1 month. Reports that his following with wound clinic and Dr. Arevalo- ID No current purulent discharge noted. No significant surrounding edema -ID consult, appreciate recommendations -hold clindamycin currently, will start on cefepime (4) ENMANUEL (acute kidney injury): Cr: 1.39. Baseline: 0.8-0.9 Probable secondary to dehydration -monitor renal functions -IVF -hold lisinopril (5) Hypomagnesemia: magensium: 1.7 -replace and monitor (6) CVA (cerebral vascular accident): Hx CVA 2014, 2017. residual right sided weakness. Pt still has speech and PT weekly On coumadin INR: 3.5 -will hold coumadin tonight, monitor INR and adjust accordingly -continue ASA, plavix (7) Coronary artery disease: CAD s/p CABG 3 vessel in 2006, KILEY ostial portion RCA in 2014, bare metal stent to left main coronary in 2016 -continue ASA, plavix, atorvastatin, coreg (8) Diabetes mellitus, type II: A1c: 7.6 on 07/17/18 Pt insulin dependent -hold metformin -Lantus, novolog sliding scale (9) HTN (hypertension): Initially hypotensive -hold lisinopril, amlodipine (10) Dyslipidemia: -continue atorvastatin DVT Prophylaxis -On coumadin, INR: 3.5 Full Code as per discussion with pt Follows with Dr Zaman for routine care Pt was seen with Dr George. See addendum History of Present Illness Chief Complaint: hypotension Primary Care Provider: Dereck Zaman, DO Pt is 58 y/o M with PMH CAD s/p CABG 3 vessel in 2006, KILEY ostial portion RCA in 2014, bare metal stent to left main coronary in 2015, severe aortic stenosis, CVA in 2014 while on plavix and ASA and coumadin added, CVA in 2018, HTN, dyslipidemia, DM II, moderate carotid disease presented to ER from PCP's office for hypotension. Patient states past couple days has had slight nonproductive cough, rhinorrhea and sneezing. States this morning was having generalized weakness. At PCPs office was noted to be hypotensive with SBP in 80s and patient had episode of diarrhea while in office. Patient with history of ulcer and osteomyelitis distal first phalanx without abscess seen on MRI 08/22/18. Has been on clindamycin for 1 month. Reports that his following with wound clinic and Dr. Lino GIBBS. Patient reports was following with podiatry Dr. Falcon who had recommended amputation of toe however is now slowly following with wound clinic and infectious disease. Pt reports improvement and decreased size of ulcer and denies any known discharge or surrounding redness. wound culture from 08/10/18: coag neg staph. Pt has been following with PT and speech therapy since his stroke in 11/2017. Has residual right sided weakness. Uses a can to ambulate. Denies recent falls. Hasn't been doing much PT recently secondary to toe wound. Denies fever/chills, diaphoresis, N/V, ORELLANA, dizziness, syncope, vision changes, neck pain, CP, SOB, orthopnea, palpitations, hemoptysis, sore throat, choking, otalgia, abdominal pain, melena, hematochezia, paresthesias, extremity edema, new rashes, urinary symptoms. Allergies Allergy/AdvReac Type Severity Reaction Status Date / Time No Known Allergies Allergy Verified 09/08/18 10:51 Home Medications Home Medications Medication Instructions Recorded Confirmed Type amlodipine 5 mg tablet 5 mg PO DAILY 07/10/18 09/08/18 History aspirin 81 mg tablet,delayed 162 mg PO DAILY tab 07/10/18 09/08/18 History release atorvastatin 80 mg tablet 80 mg PO QPM 07/10/18 09/08/18 History baclofen 5 mg tablet 5 mg PO DAILY tab 07/10/18 09/08/18 History carvedilol 12.5 mg tablet 12.5 mg PO BID 07/10/18 09/08/18 History clopidogrel 75 mg tablet 75 mg PO DAILY 07/10/18 09/08/18 History insulin glargine (U- 100) 100 33 units SQ BID ml 07/10/18 09/08/18 History unit/mL subcutaneous solution lisinopril 40 mg tablet 40 mg PO DAILY 07/10/18 09/08/18 History metformin 1,000 mg tablet 1,000 mg PO BID 07/10/18 09/08/18 History nitroglycerin 0.4 mg sublingual 0.4 mg SL Q5M PRN 07/10/18 09/08/18 History tablet warfarin 5 mg tablet 7.5 mg PO DAILY tab 07/10/18 09/08/18 History clindamycin HCl 300 mg capsule 300 mg PO TID 09/04/18 09/08/18 History insulin aspart U-100 [Novolog 14 unit SUBCUT UD 09/08/18 09/08/18 History U-100 Insulin aspart] Past Med/Surg History Medical History Hypomagnesemia (Chronic) CVA (cerebral vascular accident) (Chronic) Diabetes mellitus, type II (Chronic) Dyslipidemia (Chronic) HTN (hypertension) (Chronic) Neuropathic ulcer of toe of right foot (Acute) Acquired claw toe of right foot (Acute) Acquired claw toe of left foot (Acute) Diabetes mellitus with diabetic polyneuropathy (Acute) Acquired hallux valgus of right foot (Acute) Hallux valgus (acquired), left foot (Acute) Aortic valve stenosis (Chronic) CAD (coronary artery disease) (Chronic) Carotid stenosis (Chronic) Dyslipidemia (Chronic) HTN (hypertension) (Chronic) Hemiplegia affecting right dominant side (Chronic) Monoplegia affecting right dominant side (Chronic) Obesity (Chronic) Proliferative diabetic retinopathy (Chronic) Retinal edema (Chronic) Right foot drop (Chronic) Status post cerebrovascular accident (Chronic) Status post myocardial infarction (Chronic) Superior mesenteric artery stenosis (Chronic) Type 2 diabetes mellitus (Chronic) Surgical History S/P CABG x 3 (Chronic) S/P PTCA (percutaneous transluminal coronary angioplasty) (Chronic) S/P angioplasty with stent (Chronic) Family History Father Heart disease Social History Preferred Language: Tanzanian Communication Ability: Effective Furniture Dipper Required: No Beliefs That Will Affect Care: None marital status: Current Living Situation: Spouse current occupational status: disabled Other Information That Helps Us Care for You: No Feels Safe at Home: Yes Smoking Status: Former smoker Hx Alcohol Use: No Hx Substance Use: No Review of Systems All systems reviewed & are unremarkable except as noted in HPI & below Physical Exam Vital Signs (Past 24 Hours): Last Vital Signs Temp 36.9 C 09/08/18 09:18 Pulse 74 09/08/18 13:17 Resp 18 09/08/18 13:17 BP 148/79 H 09/08/18 13:17 Pulse Ox 98 09/08/18 13:17 Physical Exam: General: no acute distress, overweight Head: normocephalic, atraumatic Eyes: PERRL, EOM's intact, conjunctiva non-injected, anicteric ENT: normal inspection external ears, nose, mucous membranes dry Neck: supple, trachea midline Lungs: clear, no respiratory distress, no wheezing/rhonchi/rales CV: RRR, systolic murmur, no pretibial edema Abd: normal BS, soft, non-tender Ext: no cyanosis, no calf tenderness, right great toe with ulcer without discharge or surrounding erythema Neuro: A&O x 3, chronic right sided weakness,, normal affect Skin: warm, dry, +dry skin and excoriated papules to abdomen Results & Data Laboratory Results Short CBC 09/08/18 Range/Units 09:58 WBC 9.32 (4.8-10.8) K/uL Hgb 14.0 (14.0-18.0) g/dL Hct 41.7 L (42-52) % Plt Count 207 (130-400) K/uL BMP 09/08/18 09:58 Sodium 140 Potassium 3.9 Chloride 106 Carbon Dioxide 30 BUN 21 H Creatinine 1.39 Glucose 120 H Calcium 9.3 Cardiac Enzymes 09/08/18 Range/Units 09:58 Troponin I 0.026 (0-0.045) ng/ml Liver Function 09/08/18 Range/Units 09:58 Total Bilirubin 0.4 (0.2-1) mg/dl AST 11 L (15-37) U/L ALT 24 (12-78) U/L Alkaline Phosphatase 62 (45-117) U/L Albumin 3.4 (3.4-5.0) gm/dl Urine 09/08/18 Range/Units 11:33 Urine Color Yellow Urine Appearance Clear (Clear) Urine pH 5.0 (4.5-7.5) Ur Specific [place] 1.021 (1.000-1.030) Urine Protein Negative (Negative) Urine Glucose (UA) Negative (Negative) Diagnostic Findings CXR: IMPRESSION: No significant change compared to the prior study. No acute process. ECG Rhythm: sinus rhythm Findings: + PVC Comparison ECG Date: from (inferior infart inferior anterior, ST abnormality. compared to 11/19/17 no significant changes) Additional Comments: Read by cardiology: Sinus rhythm with occasional Premature ventricular complexes Possible Left atrial enlargement Left ventricular hypertrophy Inferior infarct (cited on or before 13-OCT-2006) Anterolateral infarct (cited on or before 13-OCT-2006) Abnormal ECG When compared with ECG of 30-NOV-2017 11:35, Premature ventricular complexes are now Present Confirmed by BONILLA MACIAS ([id number]) on 09/08/2018 12:39:12 PM Supervising Physician Co-Signing Physician Notes Hypotension and weakness for the past 2 days in setting of ENMANUEL and known recent osteo infection. His toe (osteo wound) appears to be healing well. Urine is clear. Afebrile. Acute onset diarrhea this am. If persists this may be the cause in setting of clindamycin use for the past month, however, diarrhea just began today so doubt this is only cause. Physical exam is normal with normal abdomen. Continue plan as above including changing clinda to Cefepime in case of c-diff infection. ID to see patient and make antibiotic recs. He did not fail clindamycin therapy by any means, the change is simply to avoid an adverse reaction if it exists. He is feeling well after initial NSS in the ER and lactate has resolved. Cont plan as above. DO Ariel (1) Hypotension Hypotension type: unspecified hypotension type Qualified Code(s): I95.9 - Hypotension, unspecified
[2018-09-08] MEDS ORDERED: DEXTROSE 50% 50 ML SYRINGE IV PRN (13:30)
[2018-09-08] MEDS ORDERED: GLUCAGON FOR INJ 1 MG VIAL SQ PRN (13:30)
[2018-09-08] MEDS ORDERED: GLUCOSE 10 TABS/TUBE PO PRN (13:30)
[2018-09-08] MEDS ORDERED: ACETAMINOPHEN 325 MG TAB PO PRN (13:30)
[2018-09-08] MEDS ORDERED: GLUCOSE 40% GEL 15 GM TUBE PO PRN (13:30)
[2018-09-08] MEDS ORDERED: CARBOHYDRATES FOR HYPOGLYCEMIA PO PRN (13:30)
[2018-09-08] MEDS ORDERED: NITROGLYCERIN SL 0.4 MG/TAB TAB SL PRN (13:30)
[2018-09-08] MEDS ORDERED: MAGNESIUM SULFATE / D5W 1 GM/100 ML BAG IV ONE (13:45)
--- NOTE | 2018-09-08 13:58 | Infectious Disease Consult ---
Date of Consultation September 08, 2018 Assessment & Plan (1) Osteomyelitis: can continue current abx, wound reportedly improving, no signs of new infection on exam. If diarrhea persists would check c diff but has only had 1 episode. continue abx and follow up in wound center History of Present Illness Attending Physician: Filippo Maciel MD pt admitted from PCP office due to episode of hotn this am and low blood glucose, 75 on check during my exam today. Has had URI past 2 days, congestion, cough, no f/c. not eating/drinking as much. CXR negative in ER. Flu swab negative. at bedside, had similar symptoms last week, now better. Pt also had 1 episode of diarrhia at PCP office today, otherwise no abd pain, no n/v/d at home. Has been on Clinda recently for osteo of right first toe, culture from 08/10 grew HEEL SEAM RUBBER, no sensitivities done. Follows with Dr. Arevalo at wound center. No diarrhea currently. Overall, feeling better. Was last at wound center on Tuesday, pt and state wound is improving, getting smaller. He denies pain, no bleeding or drainage. tolerating abx at home. no cp, sob, min dry cough, no wheeze, no BUSTILLOS. no gu symptoms, UA negative. Lactate elevated in Er, 2.8, wbc nml. blood cultures pending. Allergies Allergy/AdvReac Type Severity Reaction Status Date / Time No Known Allergies Allergy Verified 09/08/18 10:51 Home Medications Home Medications Medication Instructions Recorded Confirmed Type amlodipine 5 mg tablet 5 mg PO DAILY 07/10/18 09/08/18 History aspirin 81 mg tablet,delayed 162 mg PO DAILY tab 07/10/18 09/08/18 History release atorvastatin 80 mg tablet 80 mg PO QPM 07/10/18 09/08/18 History baclofen 5 mg tablet 5 mg PO DAILY tab 07/10/18 09/08/18 History carvedilol 12.5 mg tablet 12.5 mg PO BID 07/10/18 09/08/18 History clopidogrel 75 mg tablet 75 mg PO DAILY 07/10/18 09/08/18 History insulin glargine (U- 100) 100 33 units SQ BID ml 07/10/18 09/08/18 History unit/mL subcutaneous solution lisinopril 40 mg tablet 40 mg PO DAILY 07/10/18 09/08/18 History metformin 1,000 mg tablet 1,000 mg PO BID 07/10/18 09/08/18 History nitroglycerin 0.4 mg sublingual 0.4 mg SL Q5M PRN 07/10/18 09/08/18 History tablet warfarin 5 mg tablet 7.5 mg PO DAILY tab 07/10/18 09/08/18 History clindamycin HCl 300 mg capsule 300 mg PO TID 09/04/18 09/08/18 History insulin aspart U-100 [Novolog 14 unit SUBCUT UD 09/08/18 09/08/18 History U-100 Insulin aspart] Patient History Medical History Hypomagnesemia (Chronic) CVA (cerebral vascular accident) (Chronic) Diabetes mellitus, type II (Chronic) Dyslipidemia (Chronic) HTN (hypertension) (Chronic) Neuropathic ulcer of toe of right foot (Acute) Acquired claw toe of right foot (Acute) Acquired claw toe of left foot (Acute) Diabetes mellitus with diabetic polyneuropathy (Acute) Acquired hallux valgus of right foot (Acute) Hallux valgus (acquired), left foot (Acute) Aortic valve stenosis (Chronic) CAD (coronary artery disease) (Chronic) Carotid stenosis (Chronic) Dyslipidemia (Chronic) HTN (hypertension) (Chronic) Hemiplegia affecting right dominant side (Chronic) Monoplegia affecting right dominant side (Chronic) Obesity (Chronic) Proliferative diabetic retinopathy (Chronic) Retinal edema (Chronic) Right foot drop (Chronic) Status post cerebrovascular accident (Chronic) Status post myocardial infarction (Chronic) Superior mesenteric artery stenosis (Chronic) Type 2 diabetes mellitus (Chronic) Surgical History S/P CABG x 3 (Chronic) S/P PTCA (percutaneous transluminal coronary angioplasty) (Chronic) S/P angioplasty with stent (Chronic) Social History Preferred Language: Japanese Beliefs That Will Affect Care: None marital status: Current Living Situation: Spouse current occupational status: disabled Feels Safe at Home: Yes Smoking Status: Former smoker Hx Alcohol Use: No Hx Substance Use: No Review of Systems all remaining ros reviewed and are negative Physical Exam Vital Signs (Past 24 Hours): Last Vital Signs Temp 36.9 C 09/08/18 09:18 Pulse 74 09/08/18 13:17 Resp 18 09/08/18 13:17 BP 148/79 H 09/08/18 13:17 Pulse Ox 98 09/08/18 13:17 Constitutional: WD/WN, vitals as above Eyes: PERRL, conjunctivae normal, anicteric sclerae ENMT: external ear and nose normal, oropharynx normal Neck: normal visual inspection Respiratory: normal respiratory effort, lungs clear to auscultation Cardiovascular: RRR, no murmur, no edema Gastrointestinal (Abdomen): normal bowel sounds, soft, nontender, no hepatosplenomegaly Musculoskeletal: no cyanosis or clubbing, extremities motor strength 5/5 Skin: no rashes, warm and dry right first toe with superficial wound distal portion, no surrounding warmth, erythema, no drainage, no bleeding non tender Psychiatric: A+Ox3, euthymic affect
[2018-09-08] MEDS ORDERED: CEFEPIME CONSULT ACTIVE PRN (13:59)
[2018-09-08] MEDS: SODIUM CHLORIDE 0.9% 1000ML 1,000 ML IV SCH (14:13)
--- NOTE | 2018-09-08 14:51 | CT Scan Report ---
CT OF THE ABDOMEN AND PELVIS WITHOUT CONTRAST CLINICAL HISTORY: Diarrhea. COMPARISON STUDY: CTA of the abdomen and pelvis November 17, 2017. TECHNIQUE: Axial images of the abdomen and pelvis were obtained without IV contrast. Images were revi ewed in the axial, sagittal, and coronal planes. Automated exposure control was utilized for the ignacio dy. A dose lowering technique was utilized adhering to the principles of ALARA. FINDINGS: There are mediastinal wires and postoperative findings from bypass grafting. This extensive coronary artery calcification. The heart is moderately enlarged. There is chronic masters. No pneuma tosis, free air or portal venous gas is present. Unenhanced images of the liver, spleen, adrenal glan ds and pancreas as well as the kidneys are unremarkable. There is no biliary or pancreatic ductal dil atation. No hydronephrosis. The appendix is normal. There is no evidence for a bowel obstruction. The re is no ascites. There is moderate atherosclerotic plaque within the abdominal aorta and branch vess els. IMPRESSION: No acute process within the abdomen or pelvis on unenhanced exam. Electronically signed by: Pal Blunt M.D. 09/08/2018 2:50 PM
[2018-09-08] MEDS: CEFEPIME 2,000 MG in SYRINGE 7.5 ML IV SCH (15:50)
--- NOTE | 2018-09-08 17:35 | Emergency Department Note ---
Entered by Bessie Mendoza acting as a scribe for Donny Steele MD History of Present Illness General Chief complaint: Weakness Stated complaint: WEAK, LOW BLOOD PRESSURE Time Seen by Provider: 09/08/18 09:26 Source: patient and family History of Present Illness Onset (ago): day(s) 2 Location: head (Weakness) Severity: similar to prior episodes Pain Consistency: + other (Persistent) Quality: + other (Weakness) Exacerbated By: + movement Associated symptoms: + cough, + weakness and + other (Positive diarrhea, congestion. Negative abdominal pain, dysuria, melena.); no fever/chills and no nausea/vomiting The patient is a 58 year old male who presents to the Emergency Room with complaints of persistent weakness starting 2 days ago. The patients reports that the patient has a cough, diarrhea and is congested. She states that the patient feels light headed and weak. The patient reports that his cough is dry. He states that exerting himself worsens his symptoms. He notes that he went to his PCP [facility] where his diarrhea started. He adds that his PCP referred him to the ED this morning as he was hypotensive. The patients reports that the patient had a stroke and has permanent right leg weakness from it. She adds that the patient has been seeing Dr. Arevalo for the ulcer on his right foot. She states that the patient has been taking Clindamycin for 3 weeks for this ulcer. The patient denies abdominal pain, fever, dysuria, melena and nausea. Home Medications Home Medications Medication Instructions Recorded Confirmed Type amlodipine 5 mg tablet 5 mg PO DAILY 07/10/18 09/08/18 History aspirin 81 mg tablet,delayed 162 mg PO DAILY tab 07/10/18 09/08/18 History release atorvastatin 80 mg tablet 80 mg PO QPM 07/10/18 09/08/18 History baclofen 5 mg tablet 5 mg PO DAILY tab 07/10/18 09/08/18 History carvedilol 12.5 mg tablet 12.5 mg PO BID 07/10/18 09/08/18 History clopidogrel 75 mg tablet 75 mg PO DAILY 07/10/18 09/08/18 History insulin glargine (U- 100) 100 33 units SQ BID ml 07/10/18 09/08/18 History unit/mL subcutaneous solution lisinopril 40 mg tablet 40 mg PO DAILY 07/10/18 09/08/18 History metformin 1,000 mg tablet 1,000 mg PO BID 07/10/18 09/08/18 History nitroglycerin 0.4 mg sublingual 0.4 mg SL Q5M PRN 07/10/18 09/08/18 History tablet warfarin 5 mg tablet 7.5 mg PO DAILY tab 07/10/18 09/08/18 History clindamycin HCl 300 mg capsule 300 mg PO TID 09/04/18 09/08/18 History insulin aspart U-100 [Novolog 14 unit SUBCUT UD 09/08/18 09/08/18 History U-100 Insulin aspart] Allergies Allergy/AdvReac Type Severity Reaction Status Date / Time No Known Allergies Allergy Verified 09/08/18 10:51 Past Med/Surg History Medical History Hypomagnesemia (Chronic) CVA (cerebral vascular accident) (Chronic) Diabetes mellitus, type II (Chronic) Dyslipidemia (Chronic) HTN (hypertension) (Chronic) Neuropathic ulcer of toe of right foot (Acute) Acquired claw toe of right foot (Acute) Acquired claw toe of left foot (Acute) Diabetes mellitus with diabetic polyneuropathy (Acute) Acquired hallux valgus of right foot (Acute) Hallux valgus (acquired), left foot (Acute) Aortic valve stenosis (Chronic) CAD (coronary artery disease) (Chronic) Carotid stenosis (Chronic) Dyslipidemia (Chronic) HTN (hypertension) (Chronic) Hemiplegia affecting right dominant side (Chronic) Monoplegia affecting right dominant side (Chronic) Obesity (Chronic) Proliferative diabetic retinopathy (Chronic) Retinal edema (Chronic) Right foot drop (Chronic) Status post cerebrovascular accident (Chronic) Status post myocardial infarction (Chronic) Superior mesenteric artery stenosis (Chronic) Type 2 diabetes mellitus (Chronic) Surgical History S/P CABG x 3 (Chronic) S/P PTCA (percutaneous transluminal coronary angioplasty) (Chronic) S/P angioplasty with stent (Chronic) Social History Preferred Language: [place] Communication Ability: Effective Printer Slotter Feeder Required: No Beliefs That Will Affect Care: None marital status: Current Living Situation: Spouse current occupational status: disabled Other Information That Helps Us Care for You: No Feels Safe at Home: Yes Smoking Status: Former smoker Hx Alcohol Use: No Hx Substance Use: No Review of Systems See HPI for pertinent positives & negatives. and A total of 10 systems reviewed and were otherwise negative Physical Exam Vital Signs Vital Signs - 24 hr 09/08/18 09:18 09/08/18 11:00 09/08/18 11:24 Temperature 36.9 C Temperature Source Oral Sepsis Recent Fever Within 48 Hours No Sepsis New/Unexplained Change in Mental Status No Sepsis Action Taken by Nursing No Action Required Pulse Rate 74 78 Pulse Rate [Apical] 79 Pulse Rhythm Regular Pulse Rhythm [Apical] Regular Pulse Strength [Apical] Normal Respiratory Rate 16 17 19 Respiratory Effort / Characteristics Non-Labored Spontaneous Non-Labored Spontaneous Respiratory Depth Normal Normal Respiratory Pattern Regular Blood Pressure 80/52 L Blood Pressure [Right Arm] 112/57 L Blood Pressure Mean 61 Blood Pressure Mean [Right Arm] 75 Blood Pressure Position Sitting Blood Pressure Position [Right Arm] Pulse Oximetry 98 97 97 Oxygen Delivery Method Room Air Room Air Room Air 09/08/18 11:30 09/08/18 13:17 09/08/18 13:55 Temperature 36.9 C Temperature Source Oral Sepsis Recent Fever Within 48 Hours Sepsis New/Unexplained Change in Mental Status Sepsis Action Taken by Nursing Pulse Rate 74 Pulse Rate [Apical] 79 72 Pulse Rhythm Pulse Rhythm [Apical] Regular Regular Pulse Strength [Apical] Normal Respiratory Rate 18 18 18 Respiratory Effort / Characteristics Non-Labored Spontaneous Non-Labored Spontaneous Respiratory Depth Normal Normal Respiratory Pattern Regular Regular Blood Pressure 148/79 H Blood Pressure [Right Arm] 131/63 133/77 Blood Pressure Mean Blood Pressure Mean [Right Arm] 85 95 Blood Pressure Position Blood Pressure Position [Right Arm] Sitting Pulse Oximetry 97 98 97 Oxygen Delivery Method Room Air Room Air Room Air 09/08/18 15:21 Temperature Temperature Source Sepsis Recent Fever Within 48 Hours Sepsis New/Unexplained Change in Mental Status Sepsis Action Taken by Nursing Pulse Rate 73 Pulse Rate [Apical] Pulse Rhythm Pulse Rhythm [Apical] Pulse Strength [Apical] Respiratory Rate Respiratory Effort / Characteristics Respiratory Depth Respiratory Pattern Blood Pressure Blood Pressure [Right Arm] Blood Pressure Mean Blood Pressure Mean [Right Arm] Blood Pressure Position Blood Pressure Position [Right Arm] Pulse Oximetry Oxygen Delivery Method GENERAL: Patient is in no acute distress. HEENT: No acute trauma, normocephalic atraumatic, mucous membranes moist, no nasal congestion, no scleral icterus. NECK: No stridor, no adenopathy, no meningismus, trachea is midline. LUNGS: Clear to auscultation bilaterally, no wheeze, no rhonchi, breath sounds equal. HEART: 3/6 systolic murmur. Regular rate and rhythm. ABDOMEN: Soft, nontender, bowel sounds positive, no hernias, no peritonitis. EXTREMITIES: No cyanosis or edema, full range of motion of all the joints without pain or difficulty, no signs for acute trauma. Dressing with brace on right ankle and foot. NEUROLOGIC: Oriented x 3, no acute motor or sensory deficits, awake and alert. SKIN: No rash, no jaundice, no diaphoresis. Course 09: The patient was evaluated in room C5, and a complete history and physical examination were performed. 1121: I reevaluated the patient at this time. We discussed his findings and possible disposition. 1125: I reviewed the patient's case with Dr. Ariel mckinley. He will evaluate the patient for further management. Consultations Consultation #1: I reviewed the patient's case with Dr. Ariel mckinley. He will evaluate the patient for further management. Time: 11:25 Administered Medications Sodium Chloride (Nss 1000ml) 1,000 mls @ 80 mls/hr IV .[id number] [facility] Stop: 09/09/18 14:29 Last Admin: 09/08/18 14:13 Dose: 80 mls/hr Documented by: [id number] Cefepime HCl 2,000 mg/ Syringe 20 mls @ 5 mls/min IV Q12H SUMA; Protocol Stop: 10/20/18 15:59 Last Admin: 09/08/18 15:50 Dose: 5 mls/min Documented by: [id number] Insulin Aspart (Novolog Flexpen) 0 units SC ACHS SUMA Stop: 10/08/18 16:29 Last Admin: 09/08/18 17:45 Dose: 7 units Documented by: [id number] Cosigned by: [id number] Discontinued Medications Sodium Chloride (Nss 1000ml) 1,000 mls @ 999 mls/hr IV .[id number] ONE Stop: 09/08/18 10:34 Last Infusion: 09/08/18 11:21 Dose: 0 mls/hr Documented by: [id number] Admin: 09/08/18 10:10 Dose: 999 mls/hr Documented by: [id number] Piperacillin Sod/Tazobactam Sod (Zosyn) 4.5 gm in 120 mls @ 240 mls/hr IV NOW ONE Stop: 09/08/18 10:03 Last Infusion: 09/08/18 11:21 Dose: 0 mls/hr Documented by: [id number] Admin: 09/08/18 10:30 Dose: 240 mls/hr Documented by: [id number] Magnesium Sulfate/Dextrose (Magnesium Sulfate / D5w) 1 gm in 100 mls @ 100 mls/hr IV TODAY@1345 ONE Stop: 09/08/18 14:44 Last Infusion: 09/08/18 15:20 Dose: 0 mls/hr Documented by: [id number] Admin: 09/08/18 14:13 Dose: 100 mls/hr Documented by: [id number] Medical Decision Making Differential Diagnosis Differentials include influenza or flu like illness, C. diff colitis, anemia, dehydration, sepsis, UTI, electrolyte imbalance and cellulitis among others. Medical Records Attestation: I reviewed the patient's medical records. Home Medications Current Medication List: was personally reviewed by me Laboratory Data Attestation: I reviewed the patient's lab results. Result diagrams: 09/08/18 09:58 09/08/18 09:58 Lab Results 09/08/18 09/08/18 09/08/18 Range/Units 09:58 09:58 09:58 WBC 9.32 (4.8-10.8) K/uL RBC 5.21 (4.7-6.1) M/uL Hgb 14.0 (14.0-18.0) g/dL Hct 41.7 L (42-52) % MCV 80.0 (80-100) fL MCH 26.9 (25-34) pg MCHC 33.6 (32-36) g/dL RDW Std Deviation 43.7 (36.4-46.3) fL RDW Coeff of [place] 15.1 H (11.5-14.5) % Plt Count 207 (130-400) K/uL MPV 10.5 H (7.4-10.4) fL Immature Gran % (Auto) 0.2 % Neut % (Auto) 72.8 % Lymph % (Auto) 14.9 % [place] % (Auto) 10.7 % Eos % (Auto) 1.1 % Baso % (Auto) 0.3 % Immature Gran # (Auto) 0.02 (0.00-0.02) K/uL Neut # (Auto) 6.78 H (1.4-6.5) K/uL Lymph # (Auto) 1.39 (1.2-3.4) K/uL [place] # (Auto) 1.00 H (0.11-0.59) K/uL Eos # (Auto) 0.10 (0-0.5) K/uL Baso # (Auto) 0.03 (0-0.2) K/uL PT 32.8 H (9.0-12.0) Seconds INR 3.5 H (0.9-1.1) APTT 45.1 H* (21.0-31.0) Seconds PTT Ratio 1.7 Sodium 140 (136-145) mmol/L Potassium 3.9 (3.5-5.1) mmol/L Chloride 106 (98-107) mmol/L Carbon Dioxide 30 (21-32) mmol/L Anion Gap 4.0 (3-11) BUN 21 H (7-18) mg/dl Creatinine 1.39 (0.6-1.4) mg/dl Est Cr Clr Drug Dosing 66.7 ml/min Est GFR ( Amer) 63.4 Est GFR (Non-Af Amer) 54.7 BUN/Creatinine Ratio 15.4 (10-20) Glucose 120 H (70-99) mg/dl POC Glucose (70-99) Lactate (0.4-2.0) mmol/L Calcium 9.3 (8.5-10.1) mg/dl Magnesium 1.7 L (1.8-2.4) mg/dl Total Bilirubin 0.4 (0.2-1) mg/dl AST 11 L (15-37) U/L ALT 24 (12-78) U/L Alkaline Phosphatase 62 (45-117) U/L Troponin I (0-0.045) ng/ml Total Protein 7.6 (6.4-8.2) gm/dl Albumin 3.4 (3.4-5.0) gm/dl Globulin 4.2 H (2.5-4.0) gm/dl Albumin/Globulin Ratio 0.8 L (0.9-2) Urine Color Urine Appearance (Clear) Urine pH (4.5-7.5) Ur Specific [place] (1.000-1.030) Urine Protein (Negative) Urine Glucose (UA) (Negative) Urine Ketones (Negative) Urine Blood (Negative) Urine Nitrite (Negative) Urine Bilirubin (Negative) Urine Urobilinogen (Negative) Ur Leukocyte Esterase (Negative) Influenza Type A Ag (Neg) Influenza Type B Ag (Neg) 09/08/18 09/08/18 09/08/18 Range/Units 09:58 09:58 10:35 WBC (4.8-10.8) K/uL RBC (4.7-6.1) M/uL Hgb (14.0-18.0) g/dL Hct (42-52) % MCV (80-100) fL MCH (25-34) pg MCHC (32-36) g/dL RDW Std Deviation (36.4-46.3) fL RDW Coeff of Caroline (11.5-14.5) % Plt Count (130-400) K/uL MPV (7.4-10.4) fL Immature Gran % (Auto) % Neut % (Auto) % Lymph % (Auto) % [place] % (Auto) % Eos % (Auto) % Baso % (Auto) % Immature Gran # (Auto) (0.00-0.02) K/uL Neut # (Auto) (1.4-6.5) K/uL Lymph # (Auto) (1.2-3.4) K/uL [place] # (Auto) (0.11-0.59) K/uL Eos # (Auto) (0-0.5) K/uL Baso # (Auto) (0-0.2) K/uL PT (9.0-12.0) Seconds INR (0.9-1.1) APTT (21.0-31.0) Seconds PTT Ratio Sodium (136-145) mmol/L Potassium (3.5-5.1) mmol/L Chloride (98-107) mmol/L Carbon Dioxide (21-32) mmol/L Anion Gap (3-11) BUN (7-18) mg/dl Creatinine (0.6-1.4) mg/dl Est Cr Clr Drug Dosing ml/min Est GFR ( Amer) Est GFR (Non-Af Amer) BUN/Creatinine Ratio (10-20) Glucose (70-99) mg/dl POC Glucose (70-99) Lactate 2.8 H* (0.4-2.0) mmol/L Calcium (8.5-10.1) mg/dl Magnesium (1.8-2.4) mg/dl Total Bilirubin (0.2-1) mg/dl AST (15-37) U/L ALT (12-78) U/L Alkaline Phosphatase (45-117) U/L Troponin I 0.026 (0-0.045) ng/ml Total Protein (6.4-8.2) gm/dl Albumin (3.4-5.0) gm/dl Globulin (2.5-4.0) gm/dl Albumin/Globulin Ratio (0.9-2) Urine Color Urine Appearance (Clear) Urine pH (4.5-7.5) Ur Specific [place] (1.000-1.030) Urine Protein (Negative) Urine Glucose (UA) (Negative) Urine Ketones (Negative) Urine Blood (Negative) Urine Nitrite (Negative) Urine Bilirubin (Negative) Urine Urobilinogen (Negative) Ur Leukocyte Esterase (Negative) Influenza Type A Ag Neg for Influ A (Neg) Influenza Type B Ag Neg for Influ B (Neg) 09/08/18 09/08/18 09/08/18 Range/Units 11:33 13:48 13:55 WBC (4.8-10.8) K/uL RBC (4.7-6.1) M/uL Hgb (14.0-18.0) g/dL Hct (42-52) % MCV (80-100) fL MCH (25-34) pg MCHC (32-36) g/dL RDW Std Deviation (36.4-46.3) fL RDW Coeff of Caroline (11.5-14.5) % Plt Count (130-400) K/uL MPV (7.4-10.4) fL Immature Gran % (Auto) % Neut % (Auto) % Lymph % (Auto) % [place] % (Auto) % Eos % (Auto) % Baso % (Auto) % Immature Gran # (Auto) (0.00-0.02) K/uL Neut # (Auto) (1.4-6.5) K/uL Lymph # (Auto) (1.2-3.4) K/uL [place] # (Auto) (0.11-0.59) K/uL Eos # (Auto) (0-0.5) K/uL Baso # (Auto) (0-0.2) K/uL PT (9.0-12.0) Seconds INR (0.9-1.1) APTT (21.0-31.0) Seconds PTT Ratio Sodium (136-145) mmol/L Potassium (3.5-5.1) mmol/L Chloride (98-107) mmol/L Carbon Dioxide (21-32) mmol/L Anion Gap (3-11) BUN (7-18) mg/dl Creatinine (0.6-1.4) mg/dl Est Cr Clr Drug Dosing ml/min Est GFR ( Amer) Est GFR (Non-Af Amer) BUN/Creatinine Ratio (10-20) Glucose (70-99) mg/dl POC Glucose 75 (70-99) Lactate 1.1 (0.4-2.0) mmol/L Calcium (8.5-10.1) mg/dl Magnesium (1.8-2.4) mg/dl Total Bilirubin (0.2-1) mg/dl AST (15-37) U/L ALT (12-78) U/L Alkaline Phosphatase (45-117) U/L Troponin I (0-0.045) ng/ml Total Protein (6.4-8.2) gm/dl Albumin (3.4-5.0) gm/dl Globulin (2.5-4.0) gm/dl Albumin/Globulin Ratio (0.9-2) Urine Color Yellow Urine Appearance Clear (Clear) Urine pH 5.0 (4.5-7.5) Ur Specific [place] 1.021 (1.000-1.030) Urine Protein Negative (Negative) Urine Glucose (UA) Negative (Negative) Urine Ketones Negative (Negative) Urine Blood Negative (Negative) Urine Nitrite Negative (Negative) Urine Bilirubin Negative (Negative) Urine Urobilinogen Negative (Negative) Ur Leukocyte Esterase Negative (Negative) Influenza Type A Ag (Neg) Influenza Type B Ag (Neg) 09/08/18 Range/Units 16:35 WBC (4.8-10.8) K/uL RBC (4.7-6.1) M/uL Hgb (14.0-18.0) g/dL Hct (42-52) % MCV (80-100) fL MCH (25-34) pg MCHC (32-36) g/dL RDW Std Deviation (36.4-46.3) fL RDW Coeff of [place] (11.5-14.5) % Plt Count (130-400) K/uL MPV (7.4-10.4) fL Immature Gran % (Auto) % Neut % (Auto) % Lymph % (Auto) % [place] % (Auto) % Eos % (Auto) % Baso % (Auto) % Immature Gran # (Auto) (0.00-0.02) K/uL Neut # (Auto) (1.4-6.5) K/uL Lymph # (Auto) (1.2-3.4) K/uL [place] # (Auto) (0.11-0.59) K/uL Eos # (Auto) (0-0.5) K/uL Baso # (Auto) (0-0.2) K/uL PT (9.0-12.0) Seconds INR (0.9-1.1) APTT (21.0-31.0) Seconds PTT Ratio Sodium (136-145) mmol/L Potassium (3.5-5.1) mmol/L Chloride (98-107) mmol/L Carbon Dioxide (21-32) mmol/L Anion Gap (3-11) BUN (7-18) mg/dl Creatinine (0.6-1.4) mg/dl Est Cr Clr Drug Dosing ml/min Est GFR ( Amer) Est GFR (Non-Af Amer) BUN/Creatinine Ratio (10-20) Glucose (70-99) mg/dl POC Glucose 120 H (70-99) Lactate (0.4-2.0) mmol/L Calcium (8.5-10.1) mg/dl Magnesium (1.8-2.4) mg/dl Total Bilirubin (0.2-1) mg/dl AST (15-37) U/L ALT (12-78) U/L Alkaline Phosphatase (45-117) U/L Troponin I (0-0.045) ng/ml Total Protein (6.4-8.2) gm/dl Albumin (3.4-5.0) gm/dl Globulin (2.5-4.0) gm/dl Albumin/Globulin Ratio (0.9-2) Urine Color Urine Appearance (Clear) Urine pH (4.5-7.5) Ur Specific [place] (1.000-1.030) Urine Protein (Negative) Urine Glucose (UA) (Negative) Urine Ketones (Negative) Urine Blood (Negative) Urine Nitrite (Negative) Urine Bilirubin (Negative) Urine Urobilinogen (Negative) Ur Leukocyte Esterase (Negative) Influenza Type A Ag (Neg) Influenza Type B Ag (Neg) Imaging Data Radiologist's Impression: Radiology results as stated below per my review and the radiologist's interpretation: XR chest 1V portable HISTORY: Sepsis COMPARISON: Chest 11/30/2017. FINDINGS: There are low lung volumes. No pneumothorax. No pleural effusions. The heart is borderline enlarged. This remains unchanged. Poststernotomy changes. The lungs are clear. IMPRESSION: No significant change compared to the prior study. No acute process. Electronically signed by: Chris Bowens M.D. 09/08/2018 9:50 AM ECG Data Attestation: I personally reviewed and interpreted this ECG as follows: Indication: weakness Rate (beats per minute): 70 Rhythm: sinus rhythm Findings: + other (Old inferior and lateral infarct), + PVC, + T-wave inversion (High lateral leads) and + ST elevation (inferior leads) Comparison ECG Date: from (11/30/17) Change: no significant change Blood Pressure Blood Pressure Findings: Low blood pressure Blood Pressure Disposition: further management by hospitalist MDM Narrative There is no leukocytosis or concerning anemia. INR is elevated at 3.5, this is consistent with Coumadin use. No kidney failure. Magnesium slightly low at 1.7. There was no hepatitis. EKG shows a sinus rhythm, no acute ischemia. Cardiac enzyme testing x1 is not consistent with acute cardiac injury. Lactic acid level is mildly elevated consistent with infection or possibly dehydration. Blood cultures are pending. Urinalysis does not show infection. Influenza testing returned negative. Chest film did not show pneumonia or CHF. There was no mediastinal widening or pneumothorax. On exam, the patient did seem somewhat dehydrated. The patient presents with hypotension, lightheadedness and diarrhea. He has had flulike symptoms. He did receive IV saline for hydration. He was given IV Zosyn as antibiotic coverage for potential sepsis. The patient's blood pressure did improve with the saline. He seems more comfortable. The patient presents with hypotension, flulike symptoms, weakness and diarrhea. I do think a hospital stay is warranted given the hypotension. I did speak to the patient and case worker. The on-call hospitalist was consulted. At this point, the cause for his entire presentation is not completely clear. Further workup is warranted. I did consider C. difficile as a possibility, he has not been able to provide a sample for testing. Impression & Plan Hypotension, Lactic acidosis, Flu-like symptoms, Diarrhea Critical Care Time I have personally spent greater than 31 minutes of critical care time in the direct management of this patient. This includes bedside care, interpretation of diagnostic studies and testing, discussion with consultants, the patient, and family members, and other required patient management activities. This 31 minutes is in excess of all separately billable procedures. Critical Care Time: Yes Total Critical Care Time: 31 Discharge Plan Visit Data *Final* Discharge Date/Time: 09/08/18 13:17 Chief Complaint: Weakness Stated Complaint: WEAK, LOW BLOOD PRESSURE ED Provider: Donny Steele Discharge Problem: Hypotension, Lactic acidosis, Flu-like symptoms, Diarrhea Patient Disposition: Admitted As Inpatient Discharge Instructions Interventions: ED Discharge Assessment Last Done: 09/08/18 13:17 Discharge Problem: Hypotension Qualifiers: Hypotension type: unspecified hypotension type Qualified Code(s): I95.9 - Hypotension, unspecified Diarrhea Qualifiers: Diarrhea type: unspecified type Qualified Code(s): R19.7 - Diarrhea, unspecified The scribe's documentation has been prepared under my direction and personally reviewed by me in its entirety. I confirm that the note above accurately reflect s all work, treatment, procedures, and medical decision making performed by me.
[2018-09-08] MEDS: INSULIN ASPART 100 UNITS/ML 3 ML PEN SC SCH ×2 (17:45→20:12)
[2018-09-08] MEDS: CARVEDILOL 12.5 MG TAB PO SCH (20:15)
[2018-09-08] MEDS: INSULIN GLARGINE SOLOSTAR 100 UNITS/ML 3 ML PEN SC SCH (20:17)
[2018-09-08] MEDS: ATORVASTATIN 40 MG TAB PO SCH (20:18)
[2018-09-09] MEDS: SODIUM CHLORIDE 0.9% 1000ML 1,000 ML IV SCH (03:17)
[2018-09-09] MEDS: CEFEPIME 2,000 MG in SYRINGE 7.5 ML IV SCH ×2 (05:00→16:35)
[2018-09-09 06:55] LABS: Hematocrit (blood only) 39.6 % (42-52); Hemoglobin 13.1 g/dL (14.0-18.0); Mean Corpuscular Hgb Conc 33.1 g/dL (32-36); Mean Corpuscular Volume 80.3 fL (80-100); Mean Platelet Volume 10.1 fL (7.4-10.4); Platelet Count 183 K/uL (130-400); RDW Standard Deviation 43.7 fL (36.4-46.3); Red Blood Count 4.93 M/uL (4.7-6.1); White Blood Count 7.46 K/uL (4.8-10.8)
[2018-09-09 07:12] LABS: INR 2.2 (0.9-1.1); Prothrombin Time 20.9 Seconds (9.0-12.0)
[2018-09-09 07:19] LABS: BUN Creatinine Ratio 17.4 (10-20); Calcium 8.7 mg/dl (8.5-10.1); Creatinine Clr Calc Pharmacy 98.4 ml/min; Est GFR (African American) 99.2; Est GFR (Non-African American) 85.6; Magnesium 1.8 mg/dl (1.8-2.4); Potassium 3.9 mmol/L (3.5-5.1)
[2018-09-09] MEDS: CLOPIDOGREL BISULFATE 75 MG TAB PO SCH (08:04)
[2018-09-09] MEDS: CARVEDILOL 12.5 MG TAB PO SCH ×2 (08:04→21:06)
[2018-09-09] MEDS: INSULIN GLARGINE SOLOSTAR 100 UNITS/ML 3 ML PEN SC SCH ×2 (08:05→21:05)
[2018-09-09] MEDS: BACLOFEN 10 MG TAB PO SCH (08:05)
[2018-09-09] MEDS: ASPIRIN 81 MG ECTAB PO SCH (08:05)
[2018-09-09] MEDS: INSULIN ASPART 100 UNITS/ML 3 ML PEN SC SCH ×4 (08:07→21:01)
--- NOTE | 2018-09-09 08:17 | Hospitalist Progress Note ---
Date of Service September 09, 2018 Assessment & Plan (1) Sepsis: Pt presented to ER with c/o slight nonproductive cough, rhinorrhea and sneezing x couple of days. States this morning was having generalized weakness. At PCPs office was noted to be hypotensive with SBP in 80s and patient had episode of diarrhea while in office. In ER T: 36.9, P: 74, RR: 16, BP 80/52 to 112/57, 98% on room air. WBC: 9, lactic acid: 2.8, negative influenza A Ag. CXR: no acute changes Possible sepsis -primarily the admission concern fro sepsis due to low blood pressure and elevated lactic acid -history of ulcer and osteomyelitis to R distal first phalanx toe without abscess seen on MRI 08/22/18. Has been on clindamycin for 1 month -Patient was given IV fluids and Zosyn in the ED on 09/09/18, then switched to cefepime as per admitting hospitalist -admitting hospitalist have indicated that she did not feel that the patient had failed outpatient clindamycin therapy but wanted to possibly minimize an adverse reaction such as diarrhea -currently patient has not been having diarrhea, has not made bowel movement yet to rule out C.difficile -admission CT abdomen: No acute process within the abdomen or pelvis on unenhanced exam; admission CXR with no acute process, and admission urine analysis is normal -hypotension and elevated lactic acid has resolved with IV fluids, will continue Cefepime for now. admission blood cultures are pending -on exam by hospitalist on 09/09/18, patient appears well in appearance and does not appear to be toxic (2) Hypotension: resolved after IV fluids and currently with some hypertension will stop IV fluids, will resume patient's RUBIO inhibitor and amlodipine (3) Osteomyelitis: chronic osteomyelitis history of ulcer and osteomyelitis to R distal first phalanx toe without abscess seen on MRI 08/22/18. Has been on clindamycin for 1 month management as indicated above (4) ENMANUEL (acute kidney injury): -admission Creatinine 1.39. and Baseline: 0.8-0.9 -ENMANUEL may be prerenal cause such as dehydration -creatinine is 0.96 on 09/09/18 and ENMANUEL appears to have been resolved will stop IV fluids, will resume patient's RUBIO inhibitor (5) Hypomagnesemia: admission magnesium: 1.7 and was given magnesium supplements serum magnesium is 2 on 09/09/18 (6) CVA (cerebral vascular accident): Hx CVA 2014, 2018. residual right sided weakness. Pt still has speech and Physical therapy weekly -continue ASA, plavix -anticoagulated on anticoagulation therapy On coumadin at home initial supratherapeutic INR 3.5 on admission and coumadin was held INR is 2.2 on 09/09/18 and will resume home dose coumadin of 7.5 mg daily (7) Coronary artery disease: CAD s/p CABG 3 vessel in 2006, KILEY ostial portion RCA in 2014, bare metal stent to left main coronary in 2016 -known history of heart murmur as per patient -continue ASA, plavix, atorvastatin, coreg (8) Diabetes mellitus, type II: Type 2 diabetes mellitus on [place] current use of insulin A1c: 7.6 on 07/17/18 -hold home dose metformin -Lantus, novolog sliding scale (9) HTN (hypertension): resume home dose lisinopril, amlodipine (10) Dyslipidemia: -continue atorvastatin DVT Prophylaxis -On coumadin, INR: 2.2 disposition: continue monitoring patient's blood pressure while on IV antibiotics with possible transition back to oral antibiotics if remains clinically stable, await admission blood culture results Subjective patient appears well in appearance and does not appear to be toxic. no distress. breathing comfortably on room air. denies chest pain. denies shortness of breath. no abdominal pain. no diarrhea Physical Exam Vital Signs (Past 24 Hours): Last Vital Signs Temp 36.7 C 09/09/18 07:36 Pulse 77 09/09/18 07:36 Resp 18 09/09/18 07:36 BP 164/83 H 09/09/18 07:36 Pulse Ox 96 09/09/18 07:36 Constitutional: WD/WN, vitals as above Eyes: PERRL, conjunctivae normal, anicteric sclerae EOM intact bilaterally ENMT: external ear and nose normal, oropharynx normal Respiratory: normal respiratory effort, lungs clear to auscultation Cardiovascular: Rate/Rhythm: regular rate and regular rhythm Heart Sounds: + murmur Gastrointestinal (Abdomen): normal bowel sounds, soft, nontender, no hepatosplenomegaly Musculoskeletal: Head/Neck/Chest: normocephalic and head atraumatic Extremities: + foot abnormality (right big toe with hard skin consistent with wound healing, no purelence) Neurologic: PERRL, EOMI, accommodation nl, no face palsy, no dysarthria CN's II-XI intact bilaterally Psychiatric: A+Ox3, euthymic affect (1) Hypotension Hypotension type: unspecified hypotension type Qualified Code(s): I95.9 - Hypotension, unspecified
[2018-09-09] MEDS: LISINOPRIL 40 MG TAB PO SCH (09:16)
[2018-09-09] MEDS: AMLODIPINE BESYLATE 5 MG TAB PO SCH (09:16)
[2018-09-09] MEDS ORDERED: WARFARIN SOD 7.5 MG TAB PO SCH (16:00)
[2018-09-09] MEDS: ATORVASTATIN 40 MG TAB PO SCH (21:03)
[2018-09-10] MEDS: CEFEPIME 2,000 MG in SYRINGE 7.5 ML IV SCH (04:58)
[2018-09-10 07:32] LABS: Basophils # (auto) 0.01 K/uL (0-0.2); Basophils % (auto) 0.2 %; Eosinophils # (auto) 0.28 K/uL (0-0.5); Eosinophils % (auto) 4.4 %; Hematocrit (blood only) 39.1 % (42-52); Hemoglobin 13.2 g/dL (14.0-18.0); Immature Granulocytes # (auto) 0.02 K/uL (0.00-0.02); Immature Granulocytes % (auto) 0.3 %; Lymphocytes # (auto) 1.39 K/uL (1.2-3.4); Lymphocytes % (auto) 21.7 %; Mean Corpuscular Volume 79.1 fL (80-100); Mean Platelet Volume 10.3 fL (7.4-10.4); Monocytes # (auto) 0.48 K/uL (0.11-0.59); Monocytes % (auto) 7.5 %; Neutrophils # (auto) 4.23 K/uL (1.4-6.5); Neutrophils % (auto) 65.9 %; Platelet Count 181 K/uL (130-400); RDW Coefficient of Variation 14.6 % (11.5-14.5); RDW Standard Deviation 42.4 fL (36.4-46.3); Red Blood Count 4.94 M/uL (4.7-6.1); White Blood Count 6.41 K/uL (4.8-10.8)
[2018-09-10 07:37] LABS: Mean Corpuscular Hgb Conc 33.8 g/dL (32-36)
[2018-09-10 07:48] LABS: BUN Creatinine Ratio 14.7 (10-20); Calcium 8.7 mg/dl (8.5-10.1); Creatinine Clr Calc Pharmacy 109.4 ml/min; Est GFR (African American) 109.2; Est GFR (Non-African American) 94.3; Magnesium 1.6 mg/dl (1.8-2.4)
[2018-09-10] MEDS: CLOPIDOGREL BISULFATE 75 MG TAB PO SCH (08:07)
[2018-09-10] MEDS: ASPIRIN 81 MG ECTAB PO SCH (08:07)
[2018-09-10] MEDS: BACLOFEN 10 MG TAB PO SCH (08:07)
[2018-09-10] MEDS: CARVEDILOL 12.5 MG TAB PO SCH (08:07)
[2018-09-10] MEDS: INSULIN GLARGINE SOLOSTAR 100 UNITS/ML 3 ML PEN SC SCH (08:07)
[2018-09-10] MEDS: LISINOPRIL 40 MG TAB PO SCH (08:08)
[2018-09-10] MEDS: AMLODIPINE BESYLATE 5 MG TAB PO SCH (08:08)
[2018-09-10] MEDS: INSULIN ASPART 100 UNITS/ML 3 ML PEN SC SCH ×2 (08:09→12:08)
[2018-09-10] MEDS: MAGNESIUM SULFATE / D5W 1 GM/100 ML BAG IV SCH ×3 (08:48→10:56)
[2018-09-10] MEDS ORDERED: CLINDAMYCIN HCL 150 MG CAP PO SCH (09:00)
[2018-09-10] MEDS ORDERED: MAGNESIUM OXIDE 400 MG TAB PO SCH (09:00)
[2018-09-10 13:21] LABS: INR 1.3 (0.9-1.1); Prothrombin Time 13.1 Seconds (9.0-12.0)
--- NOTE | 2018-09-10 13:38 | Hospitalist Progress Note ---
Date of Service September 10, 2018 Assessment & Plan (1) Sepsis: Pt presented to ER with c/o slight nonproductive cough, rhinorrhea and sneezing x couple of days. States this morning was having generalized weakness. At PCPs office was noted to be hypotensive with SBP in 80s and patient had episode of diarrhea while in office. In ER T: 36.9, P: 74, RR: 16, BP 80/52 to 112/57, 98% on room air. WBC: 9, lactic acid: 2.8, negative influenza A Ag. CXR: no acute changes Possible sepsis considered at point of admission but sepsis is ruled out -primarily the admission concern fro sepsis due to low blood pressure and elevated lactic acid -history of ulcer and osteomyelitis to R distal first phalanx toe without abscess seen on MRI 08/22/18. Has been on clindamycin for 1 month -Patient was given IV fluids and Zosyn in the ED on 09/09/18, then switched to cefepime as per admitting hospitalist -admitting hospitalist have indicated that she did not feel that the patient had failed outpatient clindamycin therapy but wanted to possibly minimize an adverse reaction such as diarrhea -admission CT abdomen: No acute process within the abdomen or pelvis on unenhanced exam; admission CXR with no acute process, and admission urine analysis is normal -hypotension and elevated lactic acid has resolved with IV fluids on admission day of 09/09/18 -on exam by hospitalist on 09/09/18, patient appears well in appearance and does not appear to be toxic -Cefepime was discontinued on 09/10/18 as admission blood cultures from 09/08/18 with no growth to date and patient transitioned back to previous home dose clindamycin -Sepsis appears to have been ruled out as diagnosis - possible that initial admission hypotension and lactic acid elevation was from dehydration. patient does have elevated inflammatory markers of ESR 52 and CRP 2.7 but with normal procalcitonin on 09/10/18 and suggests chronic inflammation (possibly from the chronic osteomyelitis) rather than sepsis source Discharge to home Patient should continue taking oral clindamycin as previously prescribed for chronic osteomyelitis and follow up with Infectious Disease clinic appointment. Patient should stay hydrated to maintain blood pressure. Patient can continue to take blood pressure medications. Patient should take magnesium tablets daily and follow up with primary care doctor (2) Hypotension: Hypotension (possibly from dehydration), Acute Kidney Injury resolved -hypotension and elevated lactic acid has resolved with IV fluids on admission day of 09/09/18 -continue patient's RUBIO inhibitor and amlodipine -current blood pressure is stable and actually mildly hypertensive (3) Osteomyelitis: chronic osteomyelitis history of ulcer and osteomyelitis to R distal first phalanx toe without abscess seen on MRI 08/22/18. Has been on clindamycin for 1 month management as indicated above Patient should continue taking oral clindamycin as previously prescribed for chronic osteomyelitis and follow up with Infectious Disease clinic appointment. Patient should stay hydrated to maintain blood pressure. Patient can continue to take blood pressure medications. Patient should take magnesium tablets daily and follow up with primary care doctor (4) ENMANUEL (acute kidney injury): Hypotension (possibly from dehydration), Acute Kidney Injury resolved -admission Creatinine 1.39. and Baseline: 0.8-0.9 -ENMANUEL may be prerenal cause such as dehydration and resolved after IV fluids -creatinine is 0.96 on 09/09/18 and ENMANUEL appears to have been resolved (5) Hypomagnesemia: admission magnesium: 1.7 and was given magnesium supplements serum magnesium is 1.8 on 09/09/18 serum magnesium is 1.6 on 09/10/18 and patient given IV and oral magnesium with repeat as 2.4 Patient should take magnesium tablets daily and follow up with primary care doctor (6) CVA (cerebral vascular accident): Hx CVA 2014, 2017. residual right sided weakness. Pt still has speech and Physical therapy weekly -continue ASA, plavix -anticoagulated on anticoagulation therapy On coumadin at home initial supratherapeutic INR 3.5 on admission and coumadin was held INR is 2.2 on 09/09/18 and resumed home dose coumadin of 7.5 mg daily INR is 1.3 on 09/10/18 and patient should continue home dose coumadin and have INR check as outpatient (7) Coronary artery disease: CAD s/p CABG 3 vessel in 2006, KILEY ostial portion RCA in 2014, bare metal stent to left main coronary in 2016 -known history of heart murmur as per patient -continue ASA, plavix, atorvastatin, coreg (8) Diabetes mellitus, type II: Type 2 diabetes mellitus on care home current use of insulin A1c: 7.6 on 07/17/18 -resume home dose metformin and insulin on discharge (9) HTN (hypertension): continue home dose lisinopril, amlodipine (10) Dyslipidemia: -continue atorvastatin DVT Prophylaxis -On coumadin, INR: 2.2 disposition: continue monitoring patient's blood pressure while on IV antibiotics with possible transition back to oral antibiotics if remains clinically stable, await admission blood culture results Discharge Diagnosis Chronic osteomyelitis, Hypotension (possibly from dehydration), Acute Kidney Injury resolved, Anticoagulated by anticoagulation treatment (on coumadin however discharge INR is 1.3). 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 mellitus with care home current use of insulin Discharge Instructions Discharge to home Patient should continue taking oral clindamycin as previously prescribed for chronic osteomyelitis and follow up with Infectious Disease clinic appointment. Patient should stay hydrated to maintain blood pressure. Patient can continue to take blood pressure medications. Patient should take magnesium tablets daily and follow up with primary care doctor Patient should continue home dose of coumadin and have INR checked 09/11/2018 6:15 PM Provider [facility] Pharmacy, [facility] Other appointments 09/18/2018 3:30 PM Provider Gl[facility] [employer] 1 Department Cardiac Studies, [facility] 09/18/2018 9:00 AM Provider Dereck Zaman DO Department General Internal Medicine [facility] 09/20/2018 2:00 PM Provider Tucker Alas DO Department Ophthalmology, [facility] 09/25/2018 2:00 PM Provider Dereck Zaman DO Department General Internal Medicine [facility] Subjective patient appears well in appearance and does not appear to be toxic. no distress. breathing comfortably on room air. denies chest pain. denies shortness of breath. no abdominal pain. no diarrhea Physical Exam Vital Signs (Past 24 Hours): Last Vital Signs Temp 36.7 C 09/10/18 08:04 Pulse 68 09/10/18 08:04 Resp 16 09/10/18 08:04 BP 162/76 H 09/10/18 08:04 Pulse Ox 95 09/10/18 10:17 Constitutional: WD/WN, vitals as above Eyes: PERRL, conjunctivae normal, anicteric sclerae EOM intact bilaterally ENMT: external ear and nose normal, oropharynx normal Respiratory: normal respiratory effort, lungs clear to auscultation Cardiovascular: Rate/Rhythm: regular rate and regular rhythm Heart Sounds: + murmur Gastrointestinal (Abdomen): normal bowel sounds, soft, nontender, no hepatosplenomegaly Musculoskeletal: Head/Neck/Chest: normocephalic and head atraumatic Extremities: + foot abnormality (right big toe with hard skin consistent with wound healing, no purelence) Neurologic: PERRL, EOMI, accommodation nl, no face palsy, no dysarthria CN's II-XI intact bilaterally Psychiatric: A+Ox3, euthymic affect (1) Hypotension Hypotension type: unspecified hypotension type Qualified Code(s): I95.9 - Hypotension, unspecified
--- NOTE | 2018-09-10 14:18 | Discharge Summary ---
Date of Service September 10, 2018 Admission HPI Per Admitting Provider Pt is 58 y/o M with PMH CAD s/p CABG 3 vessel in 2006, KILEY ostial portion RCA in 2014, bare metal stent to left main coronary in 2016, severe aortic stenosis, CVA in 2014 while on plavix and ASA and coumadin added, CVA in 2018, HTN, dyslipidemia, DM II, moderate carotid disease presented to ER from PCP's office for hypotension. Patient states past couple days has had slight nonproductive cough, rhinorrhea and sneezing. States this morning was having generalized weakness. At PCPs office was noted to be hypotensive with SBP in 80s and patient had episode of diarrhea while in office. Patient with history of ulcer and osteomyelitis distal first phalanx without abscess seen on MRI 08/22/18. Has been on clindamycin for 1 month. Reports that his following with wound clinic and Dr. Lino GIBBS. Patient reports was following with podiatry Dr. Falcon who had recommended amputation of toe however is now slowly following with wound clinic and infectious disease. Pt reports improvement and decreased size of ulcer and denies any known discharge or surrounding redness. wound culture from 08/10/18: coag neg staph. Pt has been following with PT and speech therapy since his stroke in 11/2017. Has residual right sided weakness. Uses a can to ambulate. Denies recent falls. Hasn't been doing much PT recently secondary to toe wound. Denies fever/chills, diaphoresis, N/V, ORELLANA, dizziness, syncope, vision changes, neck pain, CP, SOB, orthopnea, palpitations, hemoptysis, sore throat, choking, otalgia, abdominal pain, melena, hematochezia, paresthesias, extremity edema, new rashes, urinary symptoms. Admission Exam Per Admitting Provider Physical Exam: General: no acute distress, overweight Head: normocephalic, atraumatic Eyes: PERRL, EOM's intact, conjunctiva non-injected, anicteric ENT: normal inspection external ears, nose, mucous membranes dry Neck: supple, trachea midline Lungs: clear, no respiratory distress, no wheezing/rhonchi/rales CV: RRR, systolic murmur, no pretibial edema Abd: normal BS, soft, non-tender Ext: no cyanosis, no calf tenderness, right great toe with ulcer without discharge or surrounding erythema Neuro: A&O x 3, chronic right sided weakness,, normal affect Skin: warm, dry, +dry skin and excoriated papules to abdomen Principal Diagnosis Chronic osteomyelitis, Hypotension (possibly from dehydration), Acute Kidney Injury resolved, Anticoagulated by anticoagulation treatment (on coumadin however discharge INR is 1.3). 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 of insulin Discharge Exam Constitutional WD/WN, vitals as above Eyes PERRL, conjunctivae normal, anicteric sclerae EOM intact bilaterally ENMT external ear and nose normal, oropharynx normal Respiratory normal respiratory effort, lungs clear to auscultation Cardiovascular Rate/Rhythm: regular rate and regular rhythm Heart Sounds: + murmur Gastrointestinal (Abdomen) normal bowel sounds, soft, nontender, no hepatosplenomegaly Musculoskeletal Head/Neck/Chest: normocephalic and head atraumatic Extremities: + foot abnormality (right big toe with hard skin consistent with wound healing, no purelence) Neurologic PERRL, EOMI, accommodation nl, no face palsy, no dysarthria CN's II-XI intact bilaterally Psychiatric A+Ox3, euthymic affect Discharge Data Allergies Allergy/AdvReac Type Severity Reaction Status Date / Time No Known Allergies Allergy Verified 09/08/18 10:51 Consultations 09/08/18 11:26 ED Decision to Admit Stat 09/08/18 13:30 Consult Infectious Diseases Routine Ordered Studies 09/08/18 13:30 CT abd pelvis wo con Urgent Hospital Course (1) Sepsis: Pt presented to ER with c/o slight nonproductive cough, rhinorrhea and sneezing x couple of days. States this morning was having generalized weakness. At PCPs office was noted to be hypotensive with SBP in 80s and patient had episode of diarrhea while in office. In ER T: 36.9, P: 74, RR: 16, BP 80/52 to 112/57, 98% on room air. WBC: 9, lactic acid: 2.8, negative influenza A Ag. CXR: no acute changes Possible sepsis considered at point of admission but sepsis is ruled out -primarily the admission concern fro sepsis due to low blood pressure and elevated lactic acid -history of ulcer and osteomyelitis to R distal first phalanx toe without abscess seen on MRI 08/22/18. Has been on clindamycin for 1 month -Patient was given IV fluids and Zosyn in the ED on 09/09/18, then switched to cefepime as per admitting hospitalist -admitting hospitalist have indicated that she did not feel that the patient had failed outpatient clindamycin therapy but wanted to possibly minimize an adverse reaction such as diarrhea -admission CT abdomen: No acute process within the abdomen or pelvis on unenhanced exam; admission CXR with no acute process, and admission urine analysis is normal -hypotension and elevated lactic acid has resolved with IV fluids on admission day of 09/09/18 -on exam by hospitalist on 09/09/18, patient appears well in appearance and does not appear to be toxic -Cefepime was discontinued on 09/10/18 as admission blood cultures from 09/08/18 with no growth to date and patient transitioned back to previous home dose clindamycin -Sepsis appears to have been ruled out as diagnosis - possible that initial admission hypotension and lactic acid elevation was from dehydration. patient does have elevated inflammatory markers of ESR 52 and CRP 2.7 but with normal procalcitonin on 09/10/18 and suggests chronic inflammation (possibly from the chronic osteomyelitis) rather than sepsis source Discharge to home Patient should continue taking oral clindamycin as previously prescribed for chronic osteomyelitis and follow up with Infectious Disease clinic appointment. Patient should stay hydrated to maintain blood pressure. Patient can continue to take blood pressure medications. Patient should take magnesium tablets daily and follow up with primary care doctor (2) Hypotension: Hypotension (possibly from dehydration), Acute Kidney Injury resolved -hypotension and elevated lactic acid has resolved with IV fluids on admission day of 09/09/18 -continue patient's RUBIO inhibitor and amlodipine -current blood pressure is stable and actually mildly hypertensive (3) Osteomyelitis: chronic osteomyelitis history of ulcer and osteomyelitis to R distal first phalanx toe without abscess seen on MRI 08/22/18. Has been on clindamycin for 1 month management as indicated above Patient should continue taking oral clindamycin as previously prescribed for chronic osteomyelitis and follow up with Infectious Disease clinic appointment. Patient should stay hydrated to maintain blood pressure. Patient can continue to take blood pressure medications. Patient should take magnesium tablets daily and follow up with primary care doctor (4) ENMANUEL (acute kidney injury): Hypotension (possibly from dehydration), Acute Kidney Injury resolved -admission Creatinine 1.39. and Baseline: 0.8-0.9 -ENMANUEL may be prerenal cause such as dehydration and resolved after IV fluids -creatinine is 0.96 on 09/09/18 and ENMANUEL appears to have been resolved (5) Hypomagnesemia: admission magnesium: 1.7 and was given magnesium supplements serum magnesium is 1.8 on 09/09/18 serum magnesium is 1.6 on 09/10/18 and patient given IV and oral magnesium with repeat as 2.4 Patient should take magnesium tablets daily and follow up with primary care doctor (6) CVA (cerebral vascular accident): Hx CVA 2014, 2018. residual right sided weakness. Pt still has speech and Physical therapy weekly -continue ASA, plavix -anticoagulated on anticoagulation therapy On coumadin at home initial supratherapeutic INR 3.5 on admission and coumadin was held INR is 2.2 on 09/09/18 and resumed home dose coumadin of 7.5 mg daily INR is 1.3 on 09/10/18 and patient should continue home dose coumadin and have INR check as outpatient (7) Coronary artery disease: CAD s/p CABG 3 vessel in 2006, KILEY ostial portion RCA in 2014, bare metal stent to left main coronary in 2016 -known history of heart murmur as per patient -continue ASA, plavix, atorvastatin, coreg (8) Diabetes mellitus, type II: Type 2 diabetes mellitus on 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 of 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 A1c: 7.6 on 07/17/18 -resume home dose metformin and insulin on discharge (9) HTN (hypertension): continue home dose lisinopril, amlodipine (10) Dyslipidemia: -continue atorvastatin DVT Prophylaxis -On coumadin, INR: 2.2 disposition: continue monitoring patient's blood pressure while on IV antibiotics with possible transition back to oral antibiotics if remains clinically stable, await admission blood culture results Discharge Diagnosis Chronic osteomyelitis, Hypotension (possibly from dehydration), Acute Kidney Injury resolved, Anticoagulated by anticoagulation treatment (on coumadin however discharge INR is 1.3). 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 mellitus with custodial current use of insulin Discharge Instructions Discharge to home Patient should continue taking oral clindamycin as previously prescribed for chronic osteomyelitis and follow up with Infectious Disease clinic appointment. Patient should stay hydrated to maintain blood pressure. Patient can continue to take blood pressure medications. Patient should take magnesium tablets daily and follow up with primary care doctor Patient should continue home dose of coumadin and have INR checked 09/11/2018 6:15 PM Provider [facility] Pharmacy, [facility] Other appointments 09/18/2018 3:30 PM Provider Gissel Razo Gw Department Cardiac Studies, [facility] 09/18/2018 9:00 AM Provider Dereck Zaman DO Department General Internal Medicine [facility] 09/20/2018 2:00 PM Provider Tucker Alas DO Department Ophthalmology, [facility] 09/25/2018 2:00 PM Provider Dereck Zaman DO Department General Internal Medicine [facility] Total Time Total Time Spent Total Time Spent (In Minutes): 40 minutes Total Time Includes: Examination of the Patient, Discharge Planning and Medication Reconciliation Discharge Plan Discharge Items Patient Disposition: Home - Self-Care Reason For Visit: ENMANUEL Discharge Diagnosis: Chronic osteomyelitis, Hypotension (possibly from dehydration), Acute Kidney Injury resolved, Anticoagulated by anticoagulation treatment (on coumadin however discharge INR is 1.3). 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 mellitus with custodial current use of insulin Condition: Good Discharge Goals: Improve disease control Activity: Resume your previous activity Non-emergency contact: Primary Care Provider and Specialist Call non-emergency contact if: you have any medication questions Follow-up/Referrals: Dereck Zaman DO [Primary Care Provider] - Diet: Carb Consistent or DM2 Addtl Provider Instructions: Discharge to home Patient should continue taking oral clindamycin as previously prescribed for chronic osteomyelitis and follow up with Infectious Disease clinic appointment. Patient should stay hydrated to maintain blood pressure. Patient can continue to take blood pressure medications. Patient should take magnesium tablets daily and follow up with primary care doctor Patient should continue home dose of coumadin and have INR checked 09/11/2018 6:15 PM Provider [facility], [facility] Other appointments 09/18/2018 3:30 PM Provider Gissel Marcano Department Cardiac Studies, [facility] 09/18/2018 9:00 AM Provider Dereck Zaman DO Department General Internal Medicine [facility] 09/20/2018 2:00 PM Provider Tucker Alas DO Department Ophthalmology, [facility] 09/25/2018 2:00 PM Provider Dereck Zaman DO Department General Internal Medicine [facility] Prescriptions: New magnesium oxide 400 mg (241.3 mg magnesium) Tablet 400 mg PO QAM 30 Days Qty: 30 RF: 0 Continued carvedilol 12.5 mg tablet 12.5 mg PO BID RF: 0 insulin glargine [Lantus U-100 Insulin] 100 unit/mL solution 33 units SQ BID RF: 0 warfarin 5 mg tablet 7.5 mg PO DAILY RF: 0 clopidogrel [Plavix] 75 mg tablet 75 mg PO DAILY RF: 0 atorvastatin [Lipitor] 80 mg tablet 80 mg PO QPM RF: 0 amlodipine [Norvasc] 5 mg tablet 5 mg PO DAILY RF: 0 lisinopril 40 mg tablet 40 mg PO DAILY RF: 0 metformin 1,000 mg tablet 1,000 mg PO BID RF: 0 baclofen 5 mg tablet 5 mg PO DAILY RF: 0 aspirin [Adult Low Dose Aspirin] 81 mg tablet,delayed release (DR/EC) 162 mg PO DAILY RF: 0 nitroglycerin [Nitrostat] 0.4 mg tablet, sublingual 0.4 mg SL Q5M PRN (Reason: Chest Pain) RF: 0 clindamycin HCl 300 mg capsule 300 mg PO TID RF: 0 Novolog U-100 Insulin aspart 100 unit/mL Solution 14 unit SUBCUT UD RF: 0 Stand-Alone Forms: [facility] Discharge Orders: Discharge Order (Routine); Ordered 09/10/18 Ordered By: Filippo Maciel Admission Data Admit Date/Time: 09/08/18 12:53 Attending Provider: Filippo Maciel Admit Provider: Leda George Primary Care Provider: Dereck Zaman Other Providers: Micky Arevalo ; Leda George Service: Telemetry Other Interventions: Discharge Summary Assessment (RN) Last Done: 09/10/18 13:45 DC Date/Time DO NOT enter until pt leaves facility: 09/10/18 14:06
== END 2018-09-10 14:06 | disposition home or self-care (01) | DRG 315 ==
LOC: ED 09:12 → 2N 12:53

== ENCOUNTER 2018-12-18 19:08 | Inpatient (IN) ==
[2018-12-18] MEDS ORDERED: ACETAMINOPHEN 500 MG TAB PO STA (19:16)
[2018-12-18] MEDS ORDERED: PIPERACILLIN/TAZOBACTAM 4.5 GM/120 ML BAG IV STA (19:16)
[2018-12-18] MEDS ORDERED: SODIUM CHLORIDE 0.9% 500 ML IV SCH (19:30)
[2018-12-18 19:41] LABS: Basophils # (auto) 0.01 K/uL (0-0.2); Basophils % (auto) 0.1 %; Eosinophils # (auto) 0.06 K/uL (0-0.5); Eosinophils % (auto) 0.5 %; Hematocrit (blood only) 39.2 % (42-52); Hemoglobin 13.3 g/dL (14.0-18.0); Immature Granulocytes # (auto) 0.03 K/uL (0.00-0.02); Immature Granulocytes % (auto) 0.2 %; Lymphocytes # (auto) 1.87 K/uL (1.2-3.4); Lymphocytes % (auto) 14.6 %; Mean Corpuscular Hgb Conc 33.9 g/dL (32-36); Mean Corpuscular Volume 78.9 fL (80-100); Mean Platelet Volume 11.3 fL (7.4-10.4); Monocytes # (auto) 0.93 K/uL (0.11-0.59); Monocytes % (auto) 7.2 %; Neutrophils # (auto) 9.94 K/uL (1.4-6.5); Neutrophils % (auto) 77.4 %; Platelet Count 212 K/uL (130-400); RDW Coefficient of Variation 14.5 % (11.5-14.5); Red Blood Count 4.97 M/uL (4.7-6.1); White Blood Count 12.84 K/uL (4.8-10.8)
[2018-12-18 19:55] LABS: INR 1.8 (0.9-1.1); Partial Thromboplastin Ratio 1.3; Partial Thromboplastin Time 34.5 Seconds (21.0-31.0); Prothrombin Time 17.4 Seconds (9.0-12.0)
--- NOTE | 2018-12-18 19:56 | XRay Report ---
XR chest 1V portable CLINICAL HISTORY: fever COMPARISON STUDY: Chest CT November 17, 2017. Chest radiograph September 08, 2018. FINDINGS: There are median sternotomy wires and mediastinal surgical clips. There is no pneumothorax or pleural effusion. There is no consolidation or evidence for pulmonary edema. Cardiomediastinal deangelo houette is stable. IMPRESSION: No acute cardiopulmonary findings. No change since previous exam. Electronically signed by: Pal Blunt M.D. 12/18/2018 7:54 PM
--- NOTE | 2018-12-18 19:59 | CT Scan Report ---
CT OF THE HEAD WITHOUT CONTRAST CLINICAL HISTORY: weakness, h/o stroke, fever COMPARISON STUDY: MRI of the brain November 19, 2017. Head CT November 30, 2017. CT DOSE: 614.27 mGy.cm TECHNIQUE: Helical axial images of the head were obtained without IV contrast. Automated exposure con trol was utilized for the study. A dose lowering technique was utilized adhering to the principles o f ALARA. FINDINGS: No acute intracranial hemorrhage, midline shift or mass effect is present. The ventricular system is stable. Basilar cisterns are patent. There are no findings to suggest acute dural sinus thr ombosis or acute territorial infarct. Multiple old infarcts are noted. These appear unchanged since e xam of November 30, 2017 and include a periventricular infarct within the left parietal lobe, right occip ital lobe infarct and a left brainstem infarct. There are no findings to suggest acute dural sinus th rombosis or acute territorial infarct. White matter hypodensity suggests small vessel disease. There are no significant calvarial abnormalities. IMPRESSION: No acute intracranial findings. No significant change since previous exam. Multiple old infarcts. Electronically signed by: Pal Blunt M.D. 12/18/2018 7:58 PM
[2018-12-18 20:00] LABS: Alanine Aminotransferase 25 U/L (12-78); Albumin Level 3.5 gm/dl (3.4-5.0); BUN Creatinine Ratio 19.2 (10-20); Blood Urea Nitrogen 19 mg/dl (7-18); Calcium 9.1 mg/dl (8.5-10.1); Carbon Dioxide 25 mmol/L (21-32); Chloride 105 mmol/L (98-107); Creatinine Clr Calc Pharmacy 77.8 ml/min; Est GFR (African American) 93.3; Est GFR (Non-African American) 80.5; Glucose 227 mg/dl (70-99); Potassium 3.9 mmol/L (3.5-5.1); Sodium 139 mmol/L (136-145)
[2018-12-18 20:05] LABS: Albumin Globulin Ratio 0.9 (0.9-2); Alkaline Phosphatase 74 U/L (45-117); Aspartate Aminotransferase 12 U/L (15-37); Bilirubin,Total 0.4 mg/dl (0.2-1); Globulin 4.1 gm/dl (2.5-4.0); Total Protein 7.6 gm/dl (6.4-8.2); Troponin I < 0.015 ng/ml (0-0.045)
[2018-12-18 20:44] LABS: Appearance Urine Clear (Clear); Bilirubin Urine Negative (Negative); Blood Urine Negative (Negative); Color Urine Yellow; Glucose Urine UA 3+ (Negative); Ketones Urine Negative (Negative); Leukocyte Esterase Urine Negative (Negative); Nitrite Urine Negative (Negative); Protein Urine Negative (Negative); Specific Gravity Urine 1.031 (1.000-1.030); Urobilinogen Urine Negative (Negative)
[2018-12-18 21:14] LABS: C Reactive Protein 2.62 mg/dl (0-0.29)
--- NOTE | 2018-12-18 21:54 | XRay Report ---
XR toe RT min 2V CLINICAL HISTORY: Right great toe infection COMPARISON: None FINDINGS: Note is made of destruction of the distal tuft of the distal phalanx of the right great to e. There is soft tissue swelling and soft tissue gas. There is subluxation of the right second metata rsophalangeal joint. Lateral view demonstrates a 7 mm linear metallic density which projects over the plantar aspect of the right midfoot. IMPRESSION: 1. Extensive osseous erosion of the distal tuft of the distal phalanx of right great toe consistent w ith osteomyelitis. Associated soft tissue swelling and soft tissue gas. 2. 7 mm linear metallic density which projects over the plantar soft tissues of the right midfoot whi ch favors a radiopaque foreign body. 3. Subluxation at the level the right second metatarsophalangeal joint which is age-indeterminate but probably old/ Electronically signed by: Pal Blunt M.D. 12/18/2018 9:53 PM
[2018-12-18 22:27] LABS: Creatine Kinase 134 U/L (39-308)
[2018-12-18] MEDS ORDERED: DAPTOMYCIN CONSULT ACTIVE PRN (22:38)
[2018-12-18 22:55] LABS: Magnesium 1.5 mg/dl (1.8-2.4)
[2018-12-18] MEDS: DAPTOmycin 425 MG in SYRINGE 0 ML IV SCH (22:59)
--- NOTE | 2018-12-18 23:04 | History & Physical Report ---
Date of Service December 18, 2018 Assessment & Plan (1) Sepsis: Secondary to right great toe chronic osteomyelitis Ongoing clindamycin Rx hx PVD sp recent angioplasty CAD status post CABG/stent history CVA on Coumadin for presumptive Aspirin/Plavix failure as per records, INR slightly subtherapeutic aortic stenosis hypertension, slightly elevated secondary to illness DM 2, insulin requiring, well-controlled as of recent outpatient hemoglobin A1c of 6.7 last November 2018 chronic anemia, hemoglobin at baseline past tobacco abuse. Medical telemetry Cultures, IV Daptomycin and Zosyn. ID consult RE sepsis, osteomyelitis (Patient well-known to Dr. Arevalo.) Patient's refusing Orthopedics evaluation until patient seen by Dr. Arevalo.) Hold Coumadin for now in anticipation of procedural intervention during confinement. Basal insulin, ISS BG goal 1 40-1 80 DVT prophylaxis. IV heparin while Coumadin on hold while INR subtherapeutic Full code Patient's requesting updates from providers. Ms. Nasreen Turner, contact #[phone]. History of Present Illness Chief Complaint: Weakness, trouble walking Primary Care Provider: Dereck Zaman, History obtained from patient, family, and records. Medical history significant for CAD status post CABG, stent, history CVA on Coumadin for presumptive Aspirin/Plavix failure, history PVD status post recent angioplasty , aortic stenosis, hypertension, DM 2, insulin requiring, chronic anemia baseline hemoglobin of 13, chronic osteomyelitis right great toe ongoing clindamycin Rx, past tobacco abuse. Recent confinement September 2018 for possible sepsis. This afternoon, patient started having some trouble walking, increased weakness on weaker right leg. No chest pain, no S OB no cough. Patient felt warm. No unusual pain/drainage from chronic right great toe wound. No abdominal pain, diarrhea, dysuria symptoms. At the ER, patient received IV Zosyn for sepsis. RLE weakness currently improved as per patient. 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 Allergies Allergy/AdvReac Type Severity Reaction Status Date / Time No Known Allergies Allergy Verified 12/14/18 10:08 Home Medications Home Medications Medication Instructions Recorded Confirmed Type aspirin 81 mg tablet,delayed 162 mg PO DAILY tab 07/10/18 12/18/18 History release atorvastatin 80 mg tablet 80 mg PO QPM 07/10/18 12/18/18 History baclofen 5 mg tablet 5 mg PO DAILY tab 07/10/18 12/18/18 History carvedilol 12.5 mg tablet 12.5 mg PO BID 07/10/18 12/18/18 History clopidogrel 75 mg tablet 75 mg PO DAILY 07/10/18 12/18/18 History insulin glargine (U- 100) 100 30 units SQ AMPM ml 07/10/18 12/18/18 History unit/mL subcutaneous solution lisinopril 40 mg tablet 40 mg PO DAILY 07/10/18 12/18/18 History metformin 1,000 mg tablet 1,000 mg PO BID 07/10/18 12/18/18 History warfarin 5 mg tablet 7.5 mg PO 5XWK tab 07/10/18 12/18/18 History Novolog U-100 Insulin aspart 14 unit SUBCUT ACHS 09/08/18 12/18/18 History clindamycin HCl 300 mg capsule 300 mg PO TID #90 cap 09/14/18 12/18/18 Rx warfarin 5 mg PO 2XWK 12/18/18 12/18/18 History Past Med/Surg History Medical History Hypomagnesemia (Chronic) CVA (cerebral vascular accident) (Chronic) Diabetes mellitus, type II (Chronic) Dyslipidemia (Chronic) HTN (hypertension) (Chronic) Neuropathic ulcer of toe of right foot (Acute) Acquired claw toe of right foot (Acute) Acquired claw toe of left foot (Acute) Diabetes mellitus with diabetic polyneuropathy (Acute) Acquired hallux valgus of right foot (Acute) Hallux valgus (acquired), left foot (Acute) Aortic valve stenosis (Chronic) CAD (coronary artery disease) (Chronic) Carotid stenosis (Chronic) Dyslipidemia (Chronic) HTN (hypertension) (Chronic) Hemiplegia affecting right dominant side (Chronic) Monoplegia affecting right dominant side (Chronic) Obesity (Chronic) Proliferative diabetic retinopathy (Chronic) Retinal edema (Chronic) Right foot drop (Chronic) Status post cerebrovascular accident (Chronic) Status post myocardial infarction (Chronic) Superior mesenteric artery stenosis (Chronic) Type 2 diabetes mellitus (Chronic) Surgical History Hx of vitrectomy (Acute) S/P CABG x 3 (Chronic) S/P PTCA (percutaneous transluminal coronary angioplasty) (Chronic) S/P angioplasty with stent (Chronic) Family History Father Heart disease Social History Preferred Language: Uzbek Communication Ability: Effective Visual Impairment: No Limitations Hearing Ability: Normal Clinical Liaison Required: No Beliefs That Will Affect Care: None marital status: Current Living Situation: Spouse Current Living Situation Comment: lives with current occupational status: disabled Other Information That Helps Us Care for You: No Feels Safe at Home: Yes Safety Concerns: Feels Safe At This Time Smoking Status: Former smoker Do You Dip or Chew Tobacco: No Second Hand Exposure: No Tobacco Cessation Education Requested by Patient: No Hx Alcohol Use: No Hx Substance Use: No Review of Systems Review of Systems: Could not be reliably obtained Physical Exam Physical Exam: GENERAL: Comfortable, slightly anxious, no respiratory distress SKIN: Pallor, warm HEENT: Bespectacled, pale palpebral conjunctivae, no ptosis, dry buccal mucosa NECK : Supple, no tenderness CHEST : CTA, no tenderness HEART : Tachycardic, systolic murmur ABDOMEN: Some distention, nontender EXTREMITIES : Ulceration on right great toe with exposed bone and subcutaneous tissue, no gross drainage noted, no other conspicuous deformities noted NEUROLOGIC : Coherent, no facial asymmetry, MMT RLE 4/5 (chronic) Results & Data Vital Signs (Past 12 Hours) Vital Signs Temp Pulse Pulse Resp BP BP Pulse Ox 12/18/18 22:04 37.7 C H 12/18/18 22:00 102 H 26 H 148/73 H 96 12/18/18 21:07 99 H 24 176/82 H 99 12/18/18 19:51 108 H 20 176/77 H 96 12/18/18 19:50 107 H 25 H 176/77 H 97 12/18/18 19:24 114 H 155/65 H 97 12/18/18 19:09 37.9 C H 118 H 20 170/86 H 97 Laboratory Results Laboratory Results WBC 12.84 K/uL (4.8-10.8) H 12/18/18 19:24 RBC 4.97 M/uL (4.7-6.1) 12/18/18 19:24 Hgb 13.3 g/dL (14.0-18.0) L 12/18/18: Hct 39.2 % (42-52) L 12/18/18 19:24 MCV 78.9 fL (80-100) L 12/18/18 19:24 MCH 26.8 pg (25-34) 12/18/18: MCHC 33.9 g/dL (32-36) 12/18/18: RDW Std Deviation 41.0 fL (36.4-46.3) 12/18/18 RDW Coeff of Caroline 14.5 % (11.5-14.5) 12/18/18: Plt Count 212 K/uL (130-400) 12/18/18: MPV 11.3 fL (7.4-10.4) H 12/18/18:24 Immature Gran % (Auto) 0.2 % 12/18/18:24 Neut % (Auto) 77.4 % 12/18/18:24 Lymph % (Auto) 14.6 % 12/18/18:24 [place] % (Auto) 7.2 % 12/18/18:24 Eos % (Auto) 0.5 % 12/18/18:24 Baso % (Auto) 0.1 % 12/18/18:24 Immature Gran # (Auto) 0.03 K/uL (0.00-0.02) H 12/18/18:24 Neut # (Auto) 9.94 K/uL (1.4-6.5) H 12/18/18 19:24 Lymph # (Auto) 1.87 K/uL (1.2-3.4) 12/18/18:24 [place] # (Auto) 0.93 K/uL (0.11-0.59) H 12/18/18 19:24 Eos # (Auto) 0.06 K/uL (0-0.5) 12/18/18 19:24 Baso # (Auto) 0.01 K/uL (0-0.2) 12/18/18: PT 17.4 Seconds (9.0-12.0) H 12/18/18 19:24 INR 1.8 (0.9-1.1) H 12/18/18 19:24 APTT 34.5 Seconds (21.0-31.0) H 12/18/18 19:24 PTT Ratio 1.3 12/18/18 19:24 Sodium 139 mmol/L (136-145) 12/18/18 19:24 Potassium 3.9 mmol/L (3.5-5.1) 12/18/18 19:24 Chloride 105 mmol/L (98-107) 12/18/18 19:24 Carbon Dioxide 25 mmol/L (21-32) 12/18/18 19:24 Anion Gap 8.0 (3-11) 12/18/18 19:24 BUN 19 mg/dl (7-18) H 12/18/18 19:24 Creatinine 1.01 mg/dl (0.6-1.4) 12/18/18 19:24 Est Cr Clr Drug Dosing 77.8 ml/min 12/18/18 19:24 Est GFR ( Amer) 93.3 12/18/18 19:24 Est GFR (Non-Af Amer) 80.5 12/18/18 19:24 BUN/Creatinine Ratio 19.2 (10-20) 12/18/18 19:24 Glucose 227 mg/dl (70-99) H 12/18/18 19:24 Lactate 2.0 mmol/L (0.4-2.0) 12/18/18 19:24 Calcium 9.1 mg/dl (8.5-10.1) 12/18/18 19:24 Magnesium 1.5 mg/dl (1.8-2.4) L 12/18/18 19:24 Total Bilirubin 0.4 mg/dl (0.2-1) 12/18/18 19:24 AST 12 U/L (15-37) L 12/18/18 19:24 ALT 25 U/L (12-78) 12/18/18 19:24 Alkaline Phosphatase 74 U/L (45-117) 12/18/18 19:24 Total Creatine Kinase 134 U/L (39-308) 12/18/18 19:24 Troponin I < 0.015 ng/ml (0-0.045) 12/18/18 19:24 C-Reactive Protein 2.62 mg/dl (0-0.29) H 12/18/18 19:24 Total Protein 7.6 gm/dl (6.4-8.2) 12/18/18 19:24 Albumin 3.5 gm/dl (3.4-5.0) 12/18/18 19:24 Globulin 4.1 gm/dl (2.5-4.0) H 12/18/18 19:24 Albumin/Globulin Ratio 0.9 (0.9-2) 12/18/18 19:24 Urine Color Yellow 12/18/18 20:24 Urine Appearance Clear (Clear) 12/18/18 20:24 Urine pH 5.0 (4.5-7.5) 12/18/18 20:24 Ur Specific [place] 1.031 (1.000-1.030) H 12/18/18 20:24 Urine Protein Negative (Negative) 12/18/18 20:24 Urine Glucose (UA) 3+ (Negative) H 12/18/18 20:24 Urine Ketones Negative (Negative) 12/18/18 20:24 Urine Blood Negative (Negative) 12/18/18 20:24 Urine Nitrite Negative (Negative) 12/18/18 20:24 Urine Bilirubin Negative (Negative) 12/18/18 20:24 Urine Urobilinogen Negative (Negative) 12/18/18 20:24 Ur Leukocyte Esterase Negative (Negative) 12/18/18 20:[address] head: No acute intracranial findings. No significant change since previous exam. Multiple old infarcts. Chest x-ray: No acute cardiopulmonary findings. No change since previous exam. Right toe x-ray: 1. Extensive osseous erosion of the distal tuft of the distal phalanx of right great toe consistent with osteomyelitis. Associated soft tissue swelling and soft tissue gas. 2. 7 mm linear metallic density which projects over the plantar soft tissues of the right midfoot which favors a radiopaque foreign body. 3. Subluxation at the level the right second metatarsophalangeal joint which is age-indeterminate but probably old EKG as per my interpretation rate 105, sinus tachycardia, incomplete right bundle branch block, ST depression lateral leads, inferior infarct
[2018-12-18] MEDS ORDERED: PIPERACILL/TAZOBAC CONSULT ACTIVE PRN (23:10)
--- NOTE | 2018-12-19 00:19 | Emergency Department Note ---
Entered by Ksenia Melton acting as a scribe for History of Present Illness General Chief complaint: Illness Stated complaint: SICK, CANT WALK, HISTORY OF STROKE Time Seen by Provider: 12/18/18 19:16 Source: patient Limitations: no limitations History of Present Illness Onset (ago): hour(s) (this afternoon) Location: lower extremity Pain Consistency: + other (persistent ) Quality: + other (difficulty walking) Associated symptoms: + denies other symptoms (difficulty speaking and urinary symptoms); no shortness of breath The patient is a 58 year old male who presents to the Emergency Room with complaints of persistent difficulty walking that began this afternoon, a few hours ago. Patient initially told his this morning that he "did not feel well." Throughout the day he began to have some weakness and difficulty wal roberto. denies any confusion. He denies any difficulty speaking, SOB, and urinary symptoms. The patient notes that he had a stroke a year ago, stating that these symptoms are not similar to those he experienced during his stroke. Patient does have residual disabilities related to that stroke. He states that he is currently being treated at the wound care clinic weekly for an infection on his right first digit. Home Medications Home Medications Medication Instructions Recorded Confirmed Type aspirin 81 mg tablet,delayed 162 mg PO DAILY tab 07/10/18 12/18/18 History release atorvastatin 80 mg tablet 80 mg PO QPM 07/10/18 12/18/18 History baclofen 5 mg tablet 5 mg PO DAILY tab 07/10/18 12/18/18 History carvedilol 12.5 mg tablet 12.5 mg PO BID 07/10/18 12/18/18 History clopidogrel 75 mg tablet 75 mg PO DAILY 07/10/18 12/18/18 History insulin glargine (U- 100) 100 30 units SQ AMPM ml 07/10/18 12/18/18 History unit/mL subcutaneous solution lisinopril 40 mg tablet 40 mg PO DAILY 07/10/18 12/18/18 History metformin 1,000 mg tablet 1,000 mg PO BID 07/10/18 12/18/18 History warfarin 5 mg tablet 7.5 mg PO 5XWK tab 07/10/18 12/18/18 History Novolog U-100 Insulin aspart 14 unit SUBCUT ACHS 09/08/18 12/18/18 History clindamycin HCl 300 mg capsule 300 mg PO TID #90 cap 09/14/18 12/18/18 Rx warfarin 5 mg PO 2XWK 12/18/18 12/18/18 History Allergies Allergy/AdvReac Type Severity Reaction Status Date / Time No Known Allergies Allergy Verified 12/14/18 10:08 Past Med/Surg History Medical History Hypomagnesemia (Chronic) CVA (cerebral vascular accident) (Chronic) Diabetes mellitus, type II (Chronic) Dyslipidemia (Chronic) HTN (hypertension) (Chronic) Neuropathic ulcer of toe of right foot (Acute) Acquired claw toe of right foot (Acute) Acquired claw toe of left foot (Acute) Diabetes mellitus with diabetic polyneuropathy (Acute) Acquired hallux valgus of right foot (Acute) Hallux valgus (acquired), left foot (Acute) Aortic valve stenosis (Chronic) CAD (coronary artery disease) (Chronic) Carotid stenosis (Chronic) Dyslipidemia (Chronic) HTN (hypertension) (Chronic) Hemiplegia affecting right dominant side (Chronic) Monoplegia affecting right dominant side (Chronic) Obesity (Chronic) Proliferative diabetic retinopathy (Chronic) Retinal edema (Chronic) Right foot drop (Chronic) Status post cerebrovascular accident (Chronic) Status post myocardial infarction (Chronic) Superior mesenteric artery stenosis (Chronic) Type 2 diabetes mellitus (Chronic) Surgical History Hx of vitrectomy (Acute) S/P CABG x 3 (Chronic) S/P PTCA (percutaneous transluminal coronary angioplasty) (Chronic) S/P angioplasty with stent (Chronic) Family History Father Heart disease Social History Preferred Language: [place] Communication Ability: Effective Visual Impairment: No Limitations Hearing Ability: Normal Medical Detailist Required: No Beliefs That Will Affect Care: None marital status: Current Living Situation: Spouse Current Living Situation Comment: lives with current occupational status: disabled Other Information That Helps Us Care for You: No Feels Safe at Home: Yes Safety Concerns: Feels Safe At This Time Smoking Status: Former smoker Do You Dip or Chew Tobacco: No Second Hand Exposure: No Tobacco Cessation Education Requested by Patient: No Hx Alcohol Use: No Hx Substance Use: No Review of Systems See HPI for pertinent positives & negatives. and A total of 10 systems reviewed and were otherwise negative Physical Exam Vital Signs Vital Signs - 24 hr 12/18/18 19:09 12/18/18 19:24 12/18/18 19:50 Temperature 37.9 C H Temperature Source Oral Sepsis Recent Fever Within 48 Hours No Sepsis New/Unexplained Change in Mental Status No Sepsis Action Taken by Nursing No Action Required Pulse Rate 118 H 114 H 107 H Pulse Rate [Right Finger] Pulse Rate from SpO2 Sensor 107 H Pulse Rhythm Regular Pulse Strength Normal Respiratory Rate 20 25 H Respiratory Effort / Characteristics Non-Labored Spontaneous Respiratory Depth Normal Respiratory Pattern Regular Blood Pressure 170/86 H 155/65 H 176/77 H Blood Pressure [Right Arm] Blood Pressure Mean 114 95 110 Blood Pressure Mean [Right Arm] Blood Pressure Position Sitting Blood Pressure Position [Right Arm] Pulse Oximetry 97 97 97 Oxygen Delivery Method Room Air Room Air Room Air 12/18/18 19:51 12/18/18 21:07 12/18/18 22:00 Temperature Temperature Source Sepsis Recent Fever Within 48 Hours Sepsis New/Unexplained Change in Mental Status Sepsis Action Taken by Nursing Pulse Rate 99 H 102 H Pulse Rate [Right Finger] 108 H Pulse Rate from SpO2 Sensor 99 H 102 H Pulse Rhythm Pulse Strength Respiratory Rate 20 24 26 H Respiratory Effort / Characteristics Respiratory Depth Respiratory Pattern Blood Pressure 176/82 H 148/73 H Blood Pressure [Right Arm] 176/77 H Blood Pressure Mean 113 98 Blood Pressure Mean [Right Arm] 110 Blood Pressure Position Blood Pressure Position [Right Arm] Sitting Pulse Oximetry 96 99 96 Oxygen Delivery Method Room Air Room Air Room Air 12/18/18 22:04 12/19/18 00:03 Temperature 37.7 C H Temperature Source Oral Sepsis Recent Fever Within 48 Hours Sepsis New/Unexplained Change in Mental Status Sepsis Action Taken by Nursing Pulse Rate 100 H Pulse Rate [Right Finger] Pulse Rate from SpO2 Sensor Pulse Rhythm Pulse Strength Respiratory Rate 24 Respiratory Effort / Characteristics Respiratory Depth Respiratory Pattern Blood Pressure 174/72 H Blood Pressure [Right Arm] Blood Pressure Mean Blood Pressure Mean [Right Arm] Blood Pressure Position Blood Pressure Position [Right Arm] Pulse Oximetry 98 Oxygen Delivery Method Room Air Vital signs reviewed. General: Chronically ill-appearing male, in no significant distress. HEENT: No scleral icterus, PERRLA, neck supple. Atraumatic. Cardiovascular: Tachycardic rate regular and rhythm, no extra sounds. Pulmonary: Clear to auscultation bilaterally, normal work of breathing. Abdomen: Soft, nontender, nondistended, positive bowel sounds. Obese abdomen. Musculoskeletal: Atraumatic, no peripheral edema. Leg brace on the distal right extremity. Significant ulceration to the right great toe with bony protrusion. There is some surrounding mild erythema. Neurologic: Patient awake alert and oriented x 3, full strength in all 3 extremities. 4/5 strength of the RLE with straight leg raise. Cranial nerves 2 through 12 grossly intact. Skin: Warm to touch, dry, no rash Course 1914: The patient was evaluated in room A01. A complete history and physical exam was performed. 1934: I spoke with the patient's . 2010: I reassessed the patient. 2203: [facility]. He will further evaluate the patient. Consultations Consultation #1: I spoke with Dr. Owens, [facility], about the patients case. He will further evaluate the patient. Time: 22:04 Administered Medications Acetaminophen (Tylenol) 650 mg PO Q4H PRN PRN Reason: Pain or Fever Stop: 01/18/19 00:35 Last Admin: 12/20/18 03:47 Dose: 650 mg Documented by: [id number] Admin: 12/19/18 14:39 Dose: 650 mg Documented by: [id number] Admin: 12/19/18 01:17 Dose: 650 mg Documented by: [id number] Aspirin (Ecotrin Ectab) 162 mg PO DAILY [facility] Stop: 01/18/19 08:59 Last Admin: 12/20/18 09:00 Dose: Not Given Documented by: [id number] Admin: 12/19/18 08:34 Dose: 162 mg Documented by: [id number] Baclofen (Lioresal) 5 mg PO DAILY [facility] Stop: 01/18/19 08:59 Last Admin: 12/20/18 09:00 Dose: Not Given Documented by: [id number] Admin: 12/19/18 08:33 Dose: 5 mg Documented by: [id number] Carvedilol (Coreg) 12.5 mg PO BID [facility] Stop: 01/18/19 00:35 Last Admin: 12/20/18 09:00 Dose: Not Given Documented by: [id number] Admin: 12/19/18 21:41 Dose: 12.5 mg Documented by: [id number] Admin: 12/19/18 08:33 Dose: 12.5 mg Documented by: [id number] Admin: 12/19/18 01:53 Dose: 12.5 mg Documented by: [id number] Clopidogrel Bisulfate (Plavix) 75 mg PO DAILY SUMA Stop: 01/19/19 08:59 Last Admin: 12/20/18 13:34 Dose: Not Given Documented by: [id number] Daptomycin 425 mg/ Syringe 8.5 mls @ 4.25 mls/min IV Q24H SUMA; Protocol Stop: 01/29/19 22:29 Last Admin: 12/19/18 21:47 Dose: 4.25 mls/min Documented by: [id number] Admin: 12/18/18 22:59 Dose: 4.25 mls/min Documented by: [id number] Piperacillin Sod/Tazobactam Sod (Zosyn) 4.5 gm in 120 mls @ 30 mls/hr IV Q8H SUMA; Protocol Stop: 01/30/19 01:59 Last Infusion: 12/20/18 15:11 Dose: 0 mls/hr Documented by: [id number] Admin: 12/20/18 10:50 Dose: 30 mls/hr Documented by: [id number] Infusion: 12/20/18 05:55 Dose: 0 mls/hr Documented by: [id number] Admin: 12/20/18 01:55 Dose: 30 mls/hr Documented by: [id number] Infusion: 12/19/18 22:04 Dose: 0 mls/hr Documented by: [id number] Admin: 12/19/18 18:03 Dose: 30 mls/hr Documented by: [id number] Infusion: 12/19/18 14:34 Dose: 0 mls/hr Documented by: [id number] Admin: 12/19/18 10:34 Dose: 30 mls/hr Documented by: [id number] Infusion: 12/19/18 08:27 Dose: 0 mls/hr Documented by: [id number] Admin: 12/19/18 04:27 Dose: 30 mls/hr Documented by: [id number] Heparin Sodium/Dextrose (Heparin Sodium/Dextrose) 25,000 units in 500 mls @ 26 mls/hr IV .[id number] SUMA; Protocol Stop: 01/18/19 02:44 Last Titration: 12/20/18 07:04 Dose: 1,300 units/hr, 26 mls/hr Documented by: [id number] Cosigned by: [id number] Admin: 12/19/18 23:12 Dose: 1,300 units/hr, 26 mls/hr Documented by: [id number] Cosigned by: [id number] Titration: 12/19/18 23:12 Dose: 1,300 units/hr, 26 mls/hr Documented by: [id number] Cosigned by: [id number] Titration: 12/19/18 23:02 Dose: 1,300 units/hr, 26 mls/hr Documented by: [id number] Cosigned by: [id number] Titration: 12/19/18 07:22 Dose: 1,300 units/hr, 26 mls/hr Documented by: [id number] Cosigned by: [id number] Admin: 12/19/18 04:36 Dose: 1,300 units/hr, 26 mls/hr Documented by: [id number] Cosigned by: [id number] Insulin Aspart (Novolog Flexpen) 0 units SC ACHS SUMA Stop: 01/18/19 00:35 Last Admin: 12/20/18 14:31 Dose: Not Given Documented by: [id number] Admin: 12/20/18 10:13 Dose: Not Given Documented by: [id number] Cosigned by: [id number] Admin: 12/19/18 21:43 Dose: 2 units Documented by: [id number] Cosigned by: [id number] Admin: 12/19/18 18:04 Dose: 4 units Documented by: [id number] Cosigned by: [id number] Admin: 12/19/18 13:14 Dose: 5 units Documented by: [id number] Cosigned by: [id number] Admin: 12/19/18 08:38 Dose: 2 units Documented by: [id number] Cosigned by: [id number] Admin: 12/19/18 01:50 Dose: Not Given Documented by: [id number] Cosigned by: [id number] Insulin Glargine (Lantus Solostar Pen) 25 units SQ BID SUMA Stop: 01/18/19 00:35 Last Admin: 12/20/18 10:46 Dose: 25 units Documented by: [id number] Cosigned by: [id number] Admin: 12/19/18 21:43 Dose: 25 units Documented by: [id number] Cosigned by: [id number] Admin: 12/19/18 08:35 Dose: 25 units Documented by: [id number] Cosigned by: [id number] Admin: 12/19/18 01:49 Dose: Not Given Documented by: [id number] Cosigned by: [id number] Lisinopril (Zestril) 40 mg PO DAILY SUMA Stop: 01/18/19 08:59 Last Admin: 12/20/18 13:34 Dose: Not Given Documented by: [id number] Admin: 12/19/18 08:33 Dose: 40 mg Documented by: [id number] Discontinued Medications Acetaminophen (Tylenol) 1,000 mg PO ONE STA Stop: 12/18/18 19:17 Last Admin: 12/18/18 21:05 Dose: 1,000 mg Documented by: [id number] Heparin Sodium/Dextrose () 1 ea IV Q15M SUMA; Protocol Stop: 12/19/18 04:00 Last Admin: 12/19/18 04:54 Dose: Not Given Documented by: [id number] Admin: 12/19/18 04:53 Dose: Not Given Documented by: [id number] Sodium Chloride (Nss) 500 mls @ 200 mls/hr IV .Q2H30M SUMA Stop: 12/18/18 21:59 Last Infusion: 12/18/18 23:41 Dose: 0 mls/hr Documented by: [id number] Admin: 12/18/18 21:04 Dose: 200 mls/hr Documented by: [id number] Piperacillin Sod/Tazobactam Sod (Zosyn) 4.5 gm in 120 mls @ 200 mls/hr IV NOW STA Stop: 12/18/18 19:51 Last Infusion: 12/18/18 21:45 Dose: 0 mls/hr Documented by: [id number] Admin: 12/18/18 21:04 Dose: 200 mls/hr Documented by: [id number] Potassium Chloride/Sodium Chloride (Normal Saline W/20 Meq Kcl) 20 meq in 1,000 mls @ 60 mls/hr IV .[id number] STA Stop: 12/19/18 17:15 Last Infusion: 12/19/18 18:01 Dose: 0 mls/hr Documented by: [id number] Admin: 12/19/18 01:30 Dose: 60 mls/hr Documented by: [id number] Magnesium Sulfate/Dextrose (Magnesium Sulfate / D5w) 1 gm in 100 mls @ 100 mls /hr IV Q1H SUMA Stop: 12/19/18 02:35 Last Infusion: 12/19/18 03:31 Dose: 0 mls/hr Documented by: [id number] Admin: 12/19/18 02:31 Dose: 100 mls/hr Documented by: [id number] Infusion: 12/19/18 02:30 Dose: 0 mls/hr Documented by: [id number] Admin: 12/19/18 01:30 Dose: 100 mls/hr Documented by: [id number] Perflutren Lipid Microsphere (Definity) 2 ml IV ONCE ONE Stop: 12/20/18 09:22 Last Admin: 12/20/18 09:22 Dose: 2 ml Documented by: [id number] Medical Decision Making Differential Diagnosis Etiologies such as viral syndrome, otitis, pharyngitis, pneumonia, influenza, meningitis, urinary tract infection, septic arthritis, soft tissue infectious process, intra-abdominal process, sepsis, bacteremia, as well as others were entertained. Medical Records Attestation: I reviewed the patient's medical records. Home Medications Current Medication List: was personally reviewed by me Laboratory Data Attestation: I reviewed the patient's lab results. Result diagrams: 12/19/18 07:49 12/20/18 06:02 Lab Results 12/18/18 12/18/18 12/18/18 Range/Units 19:24 19:24 19:24 WBC 12.84 H (4.8-10.8) K/uL RBC 4.97 (4.7-6.1) M/uL Hgb 13.3 L (14.0-18.0) g/dL Hct 39.2 L (42-52) % MCV 78.9 L (80-100) fL MCH 26.8 (25-34) pg MCHC 33.9 (32-36) g/dL RDW Std Deviation 41.0 (36.4-46.3) fL RDW Coeff of Caroline 14.5 (11.5-14.5) % Plt Count 212 (130-400) K/uL MPV 11.3 H (7.4-10.4) fL Immature Gran % (Auto) 0.2 % Neut % (Auto) 77.4 % Lymph % (Auto) 14.6 % Braxton % (Auto) 7.2 % Eos % (Auto) 0.5 % Baso % (Auto) 0.1 % Immature Gran # (Auto) 0.03 H (0.00-0.02) K/uL Neut # (Auto) 9.94 H (1.4-6.5) K/uL Lymph # (Auto) 1.87 (1.2-3.4) K/uL Braxton # (Auto) 0.93 H (0.11-0.59) K/uL Eos # (Auto) 0.06 (0-0.5) K/uL Baso # (Auto) 0.01 (0-0.2) K/uL ESR (0-14) mm/hr PT (9.0-12.0) Seconds INR (0.9-1.1) APTT (21.0-31.0) Seconds PTT Ratio Sodium 139 (136-145) mmol/L Potassium 3.9 (3.5-5.1) mmol/L Chloride 105 (98-107) mmol/L Carbon Dioxide 25 (21-32) mmol/L Anion Gap 8.0 (3-11) BUN 19 H (7-18) mg/dl Creatinine 1.01 (0.6-1.4) mg/dl Est Cr Clr Drug Dosing 77.8 ml/min Est GFR ( Amer) 93.3 Est GFR (Non-Af Amer) 80.5 BUN/Creatinine Ratio 19.2 (10-20) Glucose 227 H (70-99) mg/dl Lactate 2.0 (0.4-2.0) mmol/L Calcium 9.1 (8.5-10.1) mg/dl Magnesium 1.5 L (1.8-2.4) mg/dl Total Bilirubin 0.4 (0.2-1) mg/dl AST 12 L (15-37) U/L ALT 25 (12-78) U/L Alkaline Phosphatase 74 (45-117) U/L Total Creatine Kinase 134 (39-308) U/L Troponin I < 0.015 (0-0.045) ng/ml C-Reactive Protein 2.62 H (0-0.29) mg/dl Total Protein 7.6 (6.4-8.2) gm/dl Albumin 3.5 (3.4-5.0) gm/dl Globulin 4.1 H (2.5-4.0) gm/dl Albumin/Globulin Ratio 0.9 (0.9-2) TSH 1.150 (0.300-4.500) uIu/ml Urine Color Urine Appearance (Clear) Urine pH (4.5-7.5) Ur Specific [place] (1.000-1.030) Urine Protein (Negative) Urine Glucose (UA) (Negative) Urine Ketones (Negative) Urine Blood (Negative) Urine Nitrite (Negative) Urine Bilirubin (Negative) Urine Urobilinogen (Negative) Ur Leukocyte Esterase (Negative) 12/18/18 12/18/18 12/18/18 Range/Units 19:24 19:24 20:24 WBC (4.8-10.8) K/uL RBC (4.7-6.1) M/uL Hgb (14.0-18.0) g/dL Hct (42-52) % MCV (80-100) fL MCH (25-34) pg MCHC (32-36) g/dL RDW Std Deviation (36.4-46.3) fL RDW Coeff of Caroline (11.5-14.5) % Plt Count (130-400) K/uL MPV (7.4-10.4) fL Immature Gran % (Auto) % Neut % (Auto) % Lymph % (Auto) % Braxton % (Auto) % Eos % (Auto) % Baso % (Auto) % Immature Gran # (Auto) (0.00-0.02) K/uL Neut # (Auto) (1.4-6.5) K/uL Lymph # (Auto) (1.2-3.4) K/uL Braxton # (Auto) (0.11-0.59) K/uL Eos # (Auto) (0-0.5) K/uL Baso # (Auto) (0-0.2) K/uL ESR 22 H (0-14) mm/hr PT 17.4 H (9.0-12.0) Seconds INR 1.8 H (0.9-1.1) APTT 34.5 H (21.0-31.0) Seconds PTT Ratio 1.3 Sodium (136-145) mmol/L Potassium (3.5-5.1) mmol/L Chloride (98-107) mmol/L Carbon Dioxide (21-32) mmol/L Anion Gap (3-11) BUN (7-18) mg/dl Creatinine (0.6-1.4) mg/dl Est Cr Clr Drug Dosing ml/min Est GFR ( Amer) Est GFR (Non-Af Amer) BUN/Creatinine Ratio (10-20) Glucose (70-99) mg/dl Lactate (0.4-2.0) mmol/L Calcium (8.5-10.1) mg/dl Magnesium (1.8-2.4) mg/dl Total Bilirubin (0.2-1) mg/dl AST (15-37) U/L ALT (12-78) U/L Alkaline Phosphatase (45-117) U/L Total Creatine Kinase (39-308) U/L Troponin I (0-0.045) ng/ml C-Reactive Protein (0-0.29) mg/dl Total Protein (6.4-8.2) gm/dl Albumin (3.4-5.0) gm/dl Globulin (2.5-4.0) gm/dl Albumin/Globulin Ratio (0.9-2) TSH (0.300-4.500) uIu/ml Urine Color Yellow Urine Appearance Clear (Clear) Urine pH 5.0 (4.5-7.5) Ur Specific [place] 1.031 H (1.000-1.030) Urine Protein Negative (Negative) Urine Glucose (UA) 3+ H (Negative) Urine Ketones Negative (Negative) Urine Blood Negative (Negative) Urine Nitrite Negative (Negative) Urine Bilirubin Negative (Negative) Urine Urobilinogen Negative (Negative) Ur Leukocyte Esterase Negative (Negative) Imaging Data Radiologist's Impression: Radiology results as stated below per my review and the radiologist's interpretation: XR chest 1V portable CLINICAL HISTORY: fever COMPARISON STUDY: Chest CT November 17, 2017. Chest radiograph September 08, 2018. FINDINGS: There are median sternotomy wires and mediastinal surgical clips. There is no pneumothorax or pleural effusion. There is no consolidation or evidence for pulmonary edema. Cardiomediastinal silhouette is stable. IMPRESSION: No acute cardiopulmonary findings. No change since previous exam. Electronically signed by: Pal Blunt M.D. 12/18/2018 7:[address] OF THE HEAD WITHOUT CONTRAST CLINICAL HISTORY: weakness, h/o stroke, fever COMPARISON STUDY: MRI of the brain November 19, 2017. Head CT November 30, 2017. CT DOSE: 614.27 mGy.cm TECHNIQUE: Helical axial images of the head were obtained without IV contrast. Automated exposure control was utilized for the study. A dose lowering techniq ue was utilized adhering to the principles of ALARA. FINDINGS: No acute intracranial hemorrhage, midline shift or mass effect is present. The ventricular system is stable. Basilar cisterns are patent. There are no findings to suggest acute dural sinus thrombosis or acute territorial infarct. Multiple old infarcts are noted. These appear unchanged since exam of November 30, 2017 and include a periventricular infarct within the left parietal lobe, right occipital lobe infarct and a left brainstem infarct. There are no findings to suggest acute dural sinus thrombosis or acute territorial infarct. W babar matter hypodensity suggests small vessel disease. There are no significant calvarial abnormalities. IMPRESSION: No acute intracranial findings. No significant change since previous exam. Multiple old infarcts. Electronically signed by: Pal Blunt M.D. 12/18/2018 7:58 PM XR toe RT min 2V CLINICAL HISTORY: Right great toe infection COMPARISON: None FINDINGS: Note is made of destruction of the distal tuft of the distal phalanx of the right great toe. There is soft tissue swelling and soft tissue gas. There is subluxation of the right second metatarsophalangeal joint. Lateral view demonstrates a 7 mm linear metallic density which projects over the plantar aspect of the right midfoot. IMPRESSION: 1. Extensive osseous erosion of the distal tuft of the distal phalanx of right great toe consistent with osteomyelitis. Associated soft tissue swelling and soft tissue gas. 2. 7 mm linear metallic density which projects over the plantar soft tissues of the right midfoot which favors a radiopaque foreign body. 3. Subluxation at the level the right second metatarsophalangeal joint which is age-indeterminate but probably old/ Electronically signed by: Pal Blunt M.D. 12/18/2018 9:53 PM ECG Data Attestation: I personally reviewed and interpreted this ECG as follows: Indication: other (fever) Rate (beats per minute): 106 Rhythm: sinus tachycardia Findings: + other (left atrial enlargement; previous inferior infarct; previous anterior lateral infarct with P wave abnormality in the anterior leads) and + Q waves (deep Q waves inferiorly) Comparison ECG Date: from (09/08/18) Change: the following changes noted (PVCs are now resolved) Blood Pressure Blood Pressure Findings: Elevated blood pressure Blood Pressure Disposition: further management by hospitalist MDM Narrative This pt was evaluated and appeared to be in some discomfort. Patient is noted to be febrile and was placed on the cardiac monitor technician. Patient speech is clear, there is no focal neurologic deficit with the exception of the right lower extremity which has a baseline weakness. Patient's laboratory work reveals a leukocytosis. Patient's lactate is 2. IV fluids were initiated. Patient was medicated with IV vancomycin and Zosyn. X-ray of the toe was performed and reveals extensive osseous erosion. On physical exam there is bony protrusion through the skin. I do not think the patient is suffering from an acute stroke rather his clinical picture is that of acute infection and decompensation. CT scan of the head reveals multiple old infarcts but no change from previous. Patient's vital signs have remained stable. He will be evaluated by the hospitalist service for admission and further management. Impression & Plan Osteomyelitis, Fever Discharge Plan Visit Data *Final* Discharge Date/Time: 12/19/18 00:03 Chief Complaint: Illness Stated Complaint: SICK, CANT WALK, HISTORY OF STROKE ED Provider: Laura Victor Discharge Problem: Osteomyelitis, Fever Patient Disposition: Admitted As Inpatient Discharge Instructions Interventions: ED Discharge Assessment Last Done: 12/19/18 00:03 Discharge Problem: Osteomyelitis Qualifiers: Osteomyelitis type: unspecified type Osteomyelitis location: unspecified site Qualified Code(s): M86.9 - Osteomyelitis, unspecified Fever Qualifiers: Fever type: unspecified Qualified Code(s): R50.9 - Fever, unspecified The scribe's documentation has been prepared under my direction and personally reviewed by me in its entirety. I confirm that the note above accurately reflects all work, treatment, procedures, and medical decision making performed by me.
[2018-12-19] MEDS ORDERED: TRAMADOL HCL 50 MG TABLET PO PRN (00:36)
[2018-12-19] MEDS ORDERED: CARBOHYDRATES FOR HYPOGLYCEMIA PO PRN (00:36)
[2018-12-19] MEDS ORDERED: PROMETHAZINE HCL 12.5 MG in SODIUM CHLORIDE 0.9% 50 ML IV PRN (00:36)
[2018-12-19] MEDS ORDERED: GLUCOSE 10 TABS/TUBE PO PRN (00:36)
[2018-12-19] MEDS ORDERED: GLUCOSE 40% GEL 15 GM TUBE PO PRN (00:36)
[2018-12-19] MEDS ORDERED: DEXTROSE 50% 50 ML SYRINGE IV PRN (00:36)
[2018-12-19] MEDS ORDERED: GLUCAGON FOR INJ 1 MG VIAL SQ PRN (00:36)
[2018-12-19] MEDS ORDERED: NITROGLYCERIN SL 0.4 MG/TAB TAB SL PRN (00:36)
[2018-12-19] MEDS ORDERED: ACETAMINOPHEN 325 MG TAB PO PRN (00:36)
[2018-12-19] MEDS ORDERED: NSS + 20MEQ KCL 20 MEQ/1,000 ML BAG IV STA (00:36)
[2018-12-19] MEDS ORDERED: MoRPHine SULFATE 2 MG/ML CARP IV PRN (00:36)
[2018-12-19] MEDS: ACETAMINOPHEN 325 MG TAB PO PRN ×2 (01:17→14:39)
[2018-12-19] MEDS: MAGNESIUM SULFATE / D5W 1 GM/100 ML BAG IV SCH ×2 (01:30→02:31)
[2018-12-19] MEDS ORDERED: Heparin IV Standard *NO* Bolus ONE ×2 (01:48→01:56)
[2018-12-19] MEDS: INSULIN GLARGINE SOLOSTAR 100 UNITS/ML 3 ML PEN SQ SCH ×3 (01:49→21:43)
[2018-12-19] MEDS: INSULIN ASPART 100 UNITS/ML 3 ML PEN SC SCH ×5 (01:50→21:43)
[2018-12-19] MEDS: CARVEDILOL 12.5 MG TAB PO SCH ×3 (01:53→21:41)
[2018-12-19] MEDS: PIPERACILLIN/TAZOBACTAM 4.5 GM/120 ML BAG IV SCH ×3 (04:27→18:03)
[2018-12-19] MEDS: Heparin Adult STANDARD Wt-Based Dextrose 5% 25,000 units/500 mL IV SCH ×2 (04:36→23:12)
[2018-12-19] MEDS: Heparin IV Standard *NO* Bolus IV SCH ×2 (04:53→04:54)
[2018-12-19 08:06] LABS: Basophils # (auto) 0.02 K/uL (0-0.2); Basophils % (auto) 0.2 %; Eosinophils # (auto) 0.01 K/uL (0-0.5); Eosinophils % (auto) 0.1 %; Hemoglobin 12.2 g/dL (14.0-18.0); Immature Granulocytes # (auto) 0.03 K/uL (0.00-0.02); Immature Granulocytes % (auto) 0.2 %; Lymphocytes # (auto) 1.39 K/uL (1.2-3.4); Mean Corpuscular Hgb Conc 33.9 g/dL (32-36); Mean Corpuscular Volume 79.8 fL (80-100); Mean Platelet Volume 10.4 fL (7.4-10.4); Monocytes # (auto) 1.05 K/uL (0.11-0.59); Monocytes % (auto) 8.3 %; Neutrophils # (auto) 10.16 K/uL (1.4-6.5); Neutrophils % (auto) 80.2 %; Platelet Count 182 K/uL (130-400); RDW Coefficient of Variation 14.7 % (11.5-14.5); RDW Standard Deviation 42.5 fL (36.4-46.3); Red Blood Count 4.51 M/uL (4.7-6.1); White Blood Count 12.66 K/uL (4.8-10.8)
[2018-12-19] MEDS: BACLOFEN 10 MG TAB PO SCH (08:33)
[2018-12-19] MEDS: LISINOPRIL 40 MG TAB PO SCH (08:33)
[2018-12-19] MEDS: ASPIRIN 81 MG ECTAB PO SCH (08:34)
[2018-12-19 08:36] LABS: BUN Creatinine Ratio 14.9 (10-20); Calcium 8.5 mg/dl (8.5-10.1); Creatinine Clr Calc Pharmacy 88.3 ml/min; Est GFR (African American) 107.7; Est GFR (Non-African American) 92.9; Potassium 3.7 mmol/L (3.5-5.1)
[2018-12-19 10:55] LABS: INR 1.6 (0.9-1.1); Partial Thromboplastin Ratio 2.3; Prothrombin Time 15.9 Seconds (9.0-12.0)
--- NOTE | 2018-12-19 11:00 | Infectious Disease Consult ---
Date of Consultation December 19, 2018 Assessment & Plan (1) Sepsis: 58-year-old diabetic male with peripheral vascular disease with known osteomyelitis of the right great toe on chronic clindamycin therapy, now with acute onset of clinical picture of sepsis, no evidence of worsening infection of toe as etiologic. We will continue IV antibiotics pending final blood culture results, but would look for other source of current symptoms as toe appears unchanged from recent evaluations. Will discuss with all involved. Will follow. (2) Osteomyelitis of great toe of right foot: History of Present Illness Reason for Consultation: Right foot osteomyelitis Attending Physician: Filippo Maciel MD History of Present Illness 58-year-old male well-known to me from follow-up at the wound care center, with history of diabetes mellitus, diabetic neuropathy, coronary artery disease, prior CVA, who is being treated for known osteomyelitis of the right great toe most recently with oral clindamycin in hopes of preserving toe without amputation. He has been quite stable, with very slow improvement in his distal ulceration, but 1 day prior to admission became severely weak, unable to walk, with dizziness and mild shortness of breath. [place] warm but no significant fever. There had not been any significant change in his right foot, no increase in redness or swelling, no increase in drainage, no increase in size of his ulceration. He has been started on broad-spectrum IV antibiotics and cultures are pending. Patient denies any significant pain in his foot. No significant cough or shortness of breath. Allergies Allergy/AdvReac Type Severity Reaction Status Date / Time No Known Allergies Allergy Verified 12/14/18 10:08 Home Medications Home Medications Medication Instructions Recorded Confirmed Type aspirin 81 mg tablet,delayed 162 mg PO DAILY tab 07/10/18 12/18/18 History release atorvastatin 80 mg tablet 80 mg PO QPM 07/10/18 12/18/18 History baclofen 5 mg tablet 5 mg PO DAILY tab 07/10/18 12/18/18 History carvedilol 12.5 mg tablet 12.5 mg PO BID 07/10/18 12/18/18 History clopidogrel 75 mg tablet 75 mg PO DAILY 07/10/18 12/18/18 History insulin glargine (U- 100) 100 30 units SQ AMPM ml 07/10/18 12/18/18 History unit/mL subcutaneous solution lisinopril 40 mg tablet 40 mg PO DAILY 07/10/18 12/18/18 History metformin 1,000 mg tablet 1,000 mg PO BID 07/10/18 12/18/18 History warfarin 5 mg tablet 7.5 mg PO 5XWK tab 07/10/18 12/18/18 History Novolog U-100 Insulin aspart 14 unit SUBCUT ACHS 09/08/18 12/18/18 History clindamycin HCl 300 mg capsule 300 mg PO TID #90 cap 09/14/18 12/18/18 Rx warfarin 5 mg PO 2XWK 12/18/18 12/18/18 History Patient History Medical History Hypomagnesemia (Chronic) CVA (cerebral vascular accident) (Chronic) Diabetes mellitus, type II (Chronic) Dyslipidemia (Chronic) HTN (hypertension) (Chronic) Neuropathic ulcer of toe of right foot (Acute) Acquired claw toe of right foot (Acute) Acquired claw toe of left foot (Acute) Diabetes mellitus with diabetic polyneuropathy (Acute) Acquired hallux valgus of right foot (Acute) Hallux valgus (acquired), left foot (Acute) Aortic valve stenosis (Chronic) CAD (coronary artery disease) (Chronic) Carotid stenosis (Chronic) Dyslipidemia (Chronic) HTN (hypertension) (Chronic) Hemiplegia affecting right dominant side (Chronic) Monoplegia affecting right dominant side (Chronic) Obesity (Chronic) Proliferative diabetic retinopathy (Chronic) Retinal edema (Chronic) Right foot drop (Chronic) Status post cerebrovascular accident (Chronic) Status post myocardial infarction (Chronic) Superior mesenteric artery stenosis (Chronic) Type 2 diabetes mellitus (Chronic) Surgical History Hx of vitrectomy (Acute) S/P CABG x 3 (Chronic) S/P PTCA (percutaneous transluminal coronary angioplasty) (Chronic) S/P angioplasty with stent (Chronic) Family History Father Heart disease Social History Preferred Language: Amharic Communication Ability: Effective Visual Impairment: No Limitations Hearing Ability: Normal 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 Required: No Beliefs That Will Affect Care: None marital status: Current Living Situation: Spouse Current Living Situation Comment: lives with current occupational status: disabled Other Information That Helps Us Care for You: No Feels Safe at Home: Yes Safety Concerns: Feels Safe At This Time Smoking Status: Former smoker Do You Dip or Chew Tobacco: No Second Hand Exposure: No Tobacco Cessation Education Requested by Patient: No Hx Alcohol Use: No Hx Substance Use: No Review of Systems Review of Systems: All systems reviewed & are unremarkable except as noted in HPI & below Physical Exam Constitutional: WD/WN, vitals as above comfortable; no acute distress Eyes: PERRL, conjunctivae normal, anicteric sclerae ENMT: external ear and nose normal, oropharynx normal Neck: trachea midline, no thyromegaly neck nontender Respiratory: normal respiratory effort, lungs clear to auscultation normal percussion; does not use accessory muscles Cardiovascular: Rate/Rhythm: regular rate and regular rhythm Heart Sounds: normal S1 and normal S2; no gallop, no murmur and no cardiac rub Vessels: normal peripheral pulses; no JVD Gastrointestinal (Abdomen): normal bowel sounds, soft, nontender, no hepatosplenomegaly Musculoskeletal: no cyanosis or clubbing, extremities motor strength 5/5 Spine: thoracic spine normal to inspection and lumbar spine normal to inspection; no cervical spinal tenderness Skin: no rashes, warm and dry normal turgor and + ulcer (Right great toe, unchanged from examination 2 weeks ago) Neurologic: moves all extremities and + focal motor deficit Mild right- sided weakness Psychiatric: A+Ox3, euthymic affect Orientation: cooperative Lymphatic: no cervical or axillary lymphadenopathy no inguinal lymphadenopathy Results & Data Vital Signs (Past 12 Hours) Vital Signs Temp Pulse Pulse Resp BP BP Pulse Ox 12/19/18 07:49 84 12/19/18 07:33 37.8 C H 91 H 17 110/69 94 12/19/18 02:00 37.7 C H 12/19/18 01:15 107 H 12/19/18 00:15 38.0 C H 107 H 102 H 16 137/75 99 12/19/18 00:03 100 H 24 174/72 H 98 Laboratory Results Short CBC 12/18/18 12/19/18 Range/Units 19:24 07:49 WBC 12.84 H 12.66 H (4.8-10.8) K/uL Hgb 13.3 L 12.2 L (14.0-18.0) g/dL Hct 39.2 L 36.0 L (42-52) % Plt Count 212 182 (130-400) K/uL BMP 12/18/18 12/19/18 19:24 07:49 Sodium 139 139 Potassium 3.9 3.7 Chloride 105 106 Carbon Dioxide 25 24 BUN 19 H 13 Creatinine 1.01 0.89 Glucose 227 H 173 H Calcium 9.1 8.5 Cardiac Enzymes 12/18/18 Range/Units 19:24 Total Creatine Kinase 134 (39-308) U/L Troponin I < 0.015 (0-0.045) ng/ml Liver Function 12/18/18 Range/Units 19:24 Total Bilirubin 0.4 (0.2-1) mg/dl AST 12 L (15-37) U/L ALT 25 (12-78) U/L Alkaline Phosphatase 74 (45-117) U/L Albumin 3.5 (3.4-5.0) gm/dl Urine 12/18/18 Range/Units 20:24 Urine Color Yellow Urine Appearance Clear (Clear) Urine pH 5.0 (4.5-7.5) Ur Specific [place] 1.031 H (1.000-1.030) Urine Protein Negative (Negative) Urine Glucose (UA) 3+ H (Negative) Diagnostic Findings Clinical Laboratory Report Name: TREVIN POPE Acct: [id number] Status: DIS [place]BR : 1960 [facility] [place]: 11/24/18 Age: 58 Sex: M Dis Date: 11/24/18 Loc: Wound Care Center Spec: [id number] Collected: 09/29/18 Received: 09/29/18-[address]: Dulce Cordoba CRNP Copy To: Dereck Zaman DO Source: Toe,Right Great OV Order: Ordered: Surf Wnd Cul/Sm Procedure Result Verified Site Gram Stain Final 09/30/18 Gram Stain Result Rare WBCs Seen No Organisms Seen Surface Wound Culture Final 10/03/18 Organism 1 Coag negative Staphylococcus Quantity Rare Sens No Sensitivities to Follow +MixWound Plus Low Counts of Probable Skin Liliana Name: TREVIN POPE : 1960 PAGE 1 Printed: 12/19/18 1100 END OF REPORT
[2018-12-19 11:10] LABS: Partial Thromboplastin Time 63.2 Seconds (21.0-31.0)
--- NOTE | 2018-12-19 13:13 | Cardiology Consultation ---
Date of Consultation December 19, 2018 Assessment & Plan (1) Osteomyelitis of great toe of right foot: (2) Preoperative cardiovascular examination: The patient has a long-standing history of atherosclerotic vascular disease affecting multiple vascular beds including his coronary arteries, peripheral arterial disease, and cerebrovascular disease. He underwent CABG for multivessel CAD in his late 40s. He has had multiple post CABG PCI's including protected left main PCI and graft PCI as described above. He had a stroke episode in 2015 while already on dual antiplatelet therapy with aspirin and clopidogrel, and a recurrent stroke episodes in 2018 while on triple therapy with aspirin, clopidogrel, and therapeutic Coumadin. He has had progressive issues with a poorly healing right great toe diabetic ulcer which is progressed to osteomyelitis. Approximately 2 weeks ago, lower extremity percutaneous transluminal angioplasty was performed in hopes of improving circulation and improving healing, but as of this point, does not appear to have had significant clinical benefit. Infectious disease input is noted and appreciated. Dr. Arevalo has been following the patient closely in wound care clinic, and the toe does not look significantly worse, and therefore alternative explanations for his fever are being explored. Blood cultures are pending. If surgical intervention is necessary, I would recommend continuing his chronic dual antiplatelet therapy without interruption. INR was subtherapeutic on admission at 1.8, and therefore he is on a heparin bridge and attempt to limit the time off of anticoagulation from a cerebrovascular disease standpoint. In addition to his chronic coronary heart disease, he has borderline severe aortic stenosis and therefore this will need to be taken into account in terms of the anesthesia plan for him. He is likely a poor candidate for spinal anesthesia due to his aortic stenosis and therefore general anesthesia would need to be considered. I had a julio c discussion with the patient and his spouse. His spouse specifically is concerned about the risks of an operative intervention, however if this is what it takes to eradicate infection, I believe that will be clinically necessary, as at some point, aortic valve replacement perhaps with transcatheter aortic valve replacement approach will be necessary, and he will need to be free of sources of infection prior to consideration of such a procedure. Await orthopedic surgery input. The patient's spouse has expressed concerns about perhaps having consideration of surgery to be performed at [facility] where his heart procedures have been performed where she has received treatment for past extensive health problems. I counseled the patient and his spouse that I believe such a procedure could be performed either locally or at [facility] [place] depending upon their preference. History of Present Illness Attending Physician: Filippo Maciel MD History of Present Illness Deja Turner is a 58 year old male seen in cardiology consultation per the request of Dr Maciel in consideration of preoperative cardiac assessment. Patient has a long-standing complex cardiac history as summarized below. I have followed him since 2011 when he transitioned care to the undersigned having previously been followed by Dr. Pinto of our practice. Patient is accompanied by his spouse at the bedside. He presented to the emergency department last evening with generalized weakness, inability to walk, and subjective fever. His maximum temperature overnight was 38 C at 12:15 AM, and his most recent temperature taken at 7:33 AM was 37.8. At present the patient is comfortable and eating his noontime meal. A CT was performed revealing multiple old infarctions without findings to suggest acute stroke. The patient has a history of a poorly healing diabetic ulcer of the right great toe with concerns for osteomyelitis. Noninvasive testing performed recently suggested peripheral arterial disease therefore he underwent an invasive angiogram performed by Dr. Gomes of interventional cardiology/endovascular medicine on 12/06/2018 revealing calcified 80 to 90% focal stenosis at the bifurcation of the VEDA / TPT and 70-80% diffuse TPT disease for which he underwent percutaneous transluminal angioplasty. A toe x-ray performed 12/18/2018 revealed osseous erosion of the distal tuft of the distal phalanx of the right great toe consistent with osteomyelitis with associated soft tissue swelling. The patient denies any recent anginal symptoms. He of course has been somewhat limited since his most recent stroke, as well as the right foot ulcer and therefore has not been ambulating much in order to induce angina. Cardiac / Vascular Problem List: 1.Asymptomatic, borderline severe to severe aortic valve stenosis 2.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 in the setting of diabetes for which patient initially underwent off pump 3 vessel coronary artery bypass grafting in 2006 with DUARTE to LAD, SVG to circumflex and SVG to PDA 3.Bare metal stent to protected left main coronary artery 08/13/2015 4.PCI drug-eluting stent to the saphenous vein graft to RPDA 04/17/2014 5.PCI, drug-eluting stent to the ostial portion of the SVG to RCA 12/04/2014 for severe in stent restenosis 6.Moderate carotid occlusive disease 7.Cerebral vascular disease status post bilateral frontal infarctions on 05/30/2015 while he was already on dual anti-platelet therapy with aspirin and clopidogrel, prompting initiation of warfarin at that time, recurrent stroke 11/2017 8.Diabetes 9.Dyslipidemia 10.R great toe osteomyelitis Allergies Allergy/AdvReac Type Severity Reaction Status Date / Time No Known Allergies Allergy Verified 12/14/18 10:08 Home Medications Home Medications Medication Instructions Recorded Confirmed Type aspirin 81 mg tablet,delayed 162 mg PO DAILY tab 07/10/18 12/18/18 History release atorvastatin 80 mg tablet 80 mg PO QPM 07/10/18 12/18/18 History baclofen 5 mg tablet 5 mg PO DAILY tab 07/10/18 12/18/18 History carvedilol 12.5 mg tablet 12.5 mg PO BID 07/10/18 12/18/18 History clopidogrel 75 mg tablet 75 mg PO DAILY 07/10/18 12/18/18 History insulin glargine (U- 100) 100 30 units SQ AMPM ml 07/10/18 12/18/18 History unit/mL subcutaneous solution lisinopril 40 mg tablet 40 mg PO DAILY 07/10/18 12/18/18 History metformin 1,000 mg tablet 1,000 mg PO BID 07/10/18 12/18/18 History warfarin 5 mg tablet 7.5 mg PO 5XWK tab 07/10/18 12/18/18 History Novolog U-100 Insulin aspart 14 unit SUBCUT ACHS 09/08/18 12/18/18 History clindamycin HCl 300 mg capsule 300 mg PO TID #90 cap 09/14/18 12/18/18 Rx warfarin 5 mg PO 2XWK 12/18/18 12/18/18 History Patient History Medical History Hypomagnesemia (Chronic) CVA (cerebral vascular accident) (Chronic) Diabetes mellitus, type II (Chronic) Dyslipidemia (Chronic) HTN (hypertension) (Chronic) Neuropathic ulcer of toe of right foot (Acute) Acquired claw toe of right foot (Acute) Acquired claw toe of left foot (Acute) Diabetes mellitus with diabetic polyneuropathy (Acute) Acquired hallux valgus of right foot (Acute) Hallux valgus (acquired), left foot (Acute) Aortic valve stenosis (Chronic) CAD (coronary artery disease) (Chronic) Carotid stenosis (Chronic) Dyslipidemia (Chronic) HTN (hypertension) (Chronic) Hemiplegia affecting right dominant side (Chronic) Monoplegia affecting right dominant side (Chronic) Obesity (Chronic) Proliferative diabetic retinopathy (Chronic) Retinal edema (Chronic) Right foot drop (Chronic) Status post cerebrovascular accident (Chronic) Status post myocardial infarction (Chronic) Superior mesenteric artery stenosis (Chronic) Type 2 diabetes mellitus (Chronic) Surgical History Hx of vitrectomy (Acute) S/P CABG x 3 (Chronic) S/P PTCA (percutaneous transluminal coronary angioplasty) (Chronic) S/P angioplasty with stent (Chronic) Family History Father Heart disease Social History Preferred Language: Slovenian Communication Ability: Effective Visual Impairment: No Limitations Hearing Ability: Normal Machine Clothing Replacer Required: No Beliefs That Will Affect Care: None marital status: Current Living Situation: Spouse Current Living Situation Comment: lives with current occupational status: disabled Other Information That Helps Us Care for You: No Feels Safe at Home: Yes Safety Concerns: Feels Safe At This Time Smoking Status: Former smoker Do You Dip or Chew Tobacco: No Second Hand Exposure: No Tobacco Cessation Education Requested by Patient: No Hx Alcohol Use: No Hx Substance Use: No Review of Systems Review of Systems: All systems reviewed & are unremarkable except as noted in HPI & below Physical Exam Physical Exam: Temp Pulse Resp BP Pulse Ox 37.8 C H 84 17 110/69 94 12/19/18 07:33 12/19/18 07:49 12/19/18 07:33 12/19/18 07:33 12/19/18 07:33 Constitutional: no acute distress Respiratory: normal respiratory effort, lungs clear to auscultation Cardiovascular: Rate/Rhythm: regular rate Heart Sounds: + murmur (II/ systolic murmur heard best at the right sternal border and radiating to the neck) Vessels: no JVD Extremities: no edema Gastrointestinal (Abdomen): normal bowel sounds, soft, nontender, no hepatosplenomegaly Musculoskeletal: Left great toe wound care images reviewed revealing significant ulceration Skin: no rashes, warm and dry Neurologic: PERRL, EOMI, accommodation nl, no face palsy, no dysarthria Results & Data Vital Signs (Past 12 Hours) Vital Signs Temp Pulse Pulse Resp BP Pulse Ox 12/19/18 07:49 84 12/19/18 07:33 37.8 C H 91 H 17 110/69 94 12/19/18 02:00 37.7 C H 12/19/18 01:15 107 H Laboratory Results Cardiac Enzymes 12/18/18 Range/Units 19:24 AST 12 L (15-37) U/L Troponin I < 0.015 (0-0.045) ng/ml Coagulation 12/18/18 12/19/18 12/19/18 Range/Units 19:24 10:19 10:19 PT 17.4 H Cancelled 15.9 H (9.0-12.0) Seconds APTT 34.5 H 63.2 H* (21.0-31.0) Seconds CBC 12/18/18 12/19/18 Range/Units 19:24 07:49 WBC 12.84 H 12.66 H (4.8-10.8) K/uL RBC 4.97 4.51 L (4.7-6.1) M/uL Hgb 13.3 L 12.2 L (14.0-18.0) g/dL Hct 39.2 L 36.0 L (42-52) % Plt Count 212 182 (130-400) K/uL Neut # (Auto) 9.94 H 10.16 H (1.4-6.5) K/uL Lymph # (Auto) 1.87 1.39 (1.2-3.4) K/uL [place] # (Auto) 0.93 H 1.05 H (0.11-0.59) K/uL Eos # (Auto) 0.06 0.01 (0-0.5) K/uL Baso # (Auto) 0.01 0.02 (0-0.2) K/uL Comprehensive Metabolic Panel 12/18/18 12/19/18 Range/Units 19:24 07:49 Sodium 139 139 (136-145) mmol/L Potassium 3.9 3.7 (3.5-5.1) mmol/L Chloride 105 106 (98-107) mmol/L Carbon Dioxide 25 24 (21-32) mmol/L BUN 19 H 13 (7-18) mg/dl Creatinine 1.01 0.89 (0.6-1.4) mg/dl Glucose 227 H 173 H (70-99) mg/dl Calcium 9.1 8.5 (8.5-10.1) mg/dl AST 12 L (15-37) U/L ALT 25 (12-78) U/L Alkaline Phosphatase 74 (45-117) U/L Total Protein 7.6 (6.4-8.2) gm/dl Albumin 3.5 (3.4-5.0) gm/dl Intake and Output 12/18/18 12/19/18 12/19/18 22:59 06:59 14:59 Intake Total 120 / 820 700 / 820 191.933 / 191.933 Balance 120 / 820 700 / 820 191.933 / 191.933 Intake: IV 120 / 820 700 / 820 191.933 / 191.933 HEPARIN SODIUM/DEXTROSE 25,000 71.933 / 71.933 units In 500 ml @ 1,300 UNITS/ HR 26 mls/hr IV .[id number] SUMA Rx #:[id number] MAGNESIUM SULFATE / D5W 1 gm In 200 / 200 100 ml @ 100 mls/hr IV Q1H SUMA Rx#:[id number] ZOSYN 4.5 gm In 120 ml @ 30 mls 120 / 120 120 / 120 /hr IV Q8H SUMA Rx#:[id number] Nss 500 ml @ 200 mls/hr IV . 500 / 500 Q2H30M SUMA Rx#:[id number] Other: Weight 73 kg 73 kg Diagnostic Findings Summary of transthoracic echocardiogram performed 09/18/2018 at [facility]: The wall thickness is moderately increased in segments with normal wall motion. The left ventricular cavity size is small due to the severe concentric left ventricular hypertrophy. There is a small sized apical wall motion abnormality with akinesis of the segments. The qualitative LV ejection fraction is 60-64% (normal). The left atrium is severely enlarged (>48 ml/m^2,). There is severe mitral annular calcification. The aortic valve is severely calcified. Borderline severe aortic valve stenosis is present. There is no significant aortic regurgitation. The aortic root and proximal ascending aorta are normal sized. Compared to the prior study dated 03/28/2018, there has been no significant interval change. The majority of the aortic valve continues with developed her velocities are in the range of 3-3.5 meters/second, with 1 velocity of 4.1 meters/second obtained with a non imaging probe from the right sternal border.
--- NOTE | 2018-12-19 13:14 | Wound Consultation ---
Date of Consultation December 19, 2018 Assessment & Plan (1) Osteomyelitis of great toe of right foot: 4-year-old male with chronic osteomyelitis of the right great toe who known to me from wound clinic. Patient is status post angiogram by Dr. Gomes December 06, 2018. Despite revascularization and chronic antibiotics patient is currently admitted with apparent sepsis due to chronic osteomyelitis. Wound appears stable compared to last exam in clinic. We will apply Xeroform daily to see if we can soften periwound callus. Continue antibiotics per Dr. Arevalo. Patient is exhausted conservative measures treatment of his chronic osteomyelitis. At this point due to his medical comorbidities patient would likely benefit from surgical intervention. Thank you for allowing me to participate in the care of this patient. We will continue to follow. (2) Sepsis: History of Present Illness Attending Physician: Filippo Maciel MD This is a 58-year-old male with a history of CVA with residual right-sided weakness, type 2 diabetes mellitus with polyneuropathy, CAD status post numerous stents, calcific aortic stenosis, dyslipidemia, hypertension diabetic foot ulcer with osteomyelitis. Patient is currently admitted with sepsis secondary to his chronic osteomyelitis. Allergies Allergy/AdvReac Type Severity Reaction Status Date / Time No Known Allergies Allergy Verified 12/14/18 10:08 Home Medications Home Medications Medication Instructions Recorded Confirmed Type aspirin 81 mg tablet,delayed 162 mg PO DAILY tab 07/10/18 12/18/18 History release atorvastatin 80 mg tablet 80 mg PO QPM 07/10/18 12/18/18 History baclofen 5 mg tablet 5 mg PO DAILY tab 07/10/18 12/18/18 History carvedilol 12.5 mg tablet 12.5 mg PO BID 07/10/18 12/18/18 History clopidogrel 75 mg tablet 75 mg PO DAILY 07/10/18 12/18/18 History insulin glargine (U- 100) 100 30 units SQ AMPM ml 07/10/18 12/18/18 History unit/mL subcutaneous solution lisinopril 40 mg tablet 40 mg PO DAILY 07/10/18 12/18/18 History metformin 1,000 mg tablet 1,000 mg PO BID 07/10/18 12/18/18 History warfarin 5 mg tablet 7.5 mg PO 5XWK tab 07/10/18 12/18/18 History Novolog U-100 Insulin aspart 14 unit SUBCUT ACHS 09/08/18 12/18/18 History clindamycin HCl 300 mg capsule 300 mg PO TID #90 cap 09/14/18 12/18/18 Rx warfarin 5 mg PO 2XWK 12/18/18 12/18/18 History Patient History Medical History Hypomagnesemia (Chronic) CVA (cerebral vascular accident) (Chronic) Diabetes mellitus, type II (Chronic) Dyslipidemia (Chronic) HTN (hypertension) (Chronic) Neuropathic ulcer of toe of right foot (Acute) Acquired claw toe of right foot (Acute) Acquired claw toe of left foot (Acute) Diabetes mellitus with diabetic polyneuropathy (Acute) Acquired hallux valgus of right foot (Acute) Hallux valgus (acquired), left foot (Acute) Aortic valve stenosis (Chronic) CAD (coronary artery disease) (Chronic) Carotid stenosis (Chronic) Dyslipidemia (Chronic) HTN (hypertension) (Chronic) Hemiplegia affecting right dominant side (Chronic) Monoplegia affecting right dominant side (Chronic) Obesity (Chronic) Proliferative diabetic retinopathy (Chronic) Retinal edema (Chronic) Right foot drop (Chronic) Status post cerebrovascular accident (Chronic) Status post myocardial infarction (Chronic) Superior mesenteric artery stenosis (Chronic) Type 2 diabetes mellitus (Chronic) Surgical History Hx of vitrectomy (Acute) S/P CABG x 3 (Chronic) S/P PTCA (percutaneous transluminal coronary angioplasty) (Chronic) S/P angioplasty with stent (Chronic) Family History Father Heart disease Social History Preferred Language: Samoan Communication Ability: Effective Visual Impairment: No Limitations Hearing Ability: Normal 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 Required: No Beliefs That Will Affect Care: None marital status: Current Living Situation: Spouse Current Living Situation Comment: lives with current occupational status: disabled Other Information That Helps Us Care for You: No Feels Safe at Home: Yes Safety Concerns: Feels Safe At This Time Smoking Status: Former smoker Do You Dip or Chew Tobacco: No Second Hand Exposure: No Tobacco Cessation Education Requested by Patient: No Hx Alcohol Use: No Hx Substance Use: No Review of Systems Review of Systems: All systems reviewed & are unremarkable except as noted in HPI & below Physical Exam Constitutional: WD/WN, vitals as above Eyes: PERRL, conjunctivae normal, anicteric sclerae Respiratory: normal respiratory effort, lungs clear to auscultation Cardiovascular: Heart Sounds: + murmur Gastrointestinal (Abdomen): normal bowel sounds, soft, nontender, no hepatosplenomegaly Skin: Wound measuring as recorded in nursing documentation. Wound is covered with fibrin, slough and callus. Periwound is intact with thick callus formation. There is minimal drainage and no foul odor. Neurologic: awake (falling asleep in mid conversation); not confused Psychiatric: A+Ox3, euthymic affect Results & Data Vital Signs (Past 12 Hours) Vital Signs Temp Pulse Pulse Resp BP Pulse Ox 12/19/18 07:49 84 12/19/18 07:33 37.8 C H 91 H 17 110/69 94 12/19/18 02:00 37.7 C H 12/19/18 01:15 107 H
--- NOTE | 2018-12-19 15:56 | Orthopedic Consultation ---
Date of Consultation December 19, 2018 Assessment & Plan (1) Osteomyelitis of great toe of right foot: Per infectious disease notes, the toe does not look any worse than it has been looking at the wound care center. Obviously there is concerns with the erosions of the distal tuft and question of gas forming organism in the soft tissues. Cardiology recommending to continue antiplatelet therapy through treatment even if surgery. Dr. Maciel has spoken to the patient and his extensively today. There were concerns whether they wanted to have the toe off at this time or not. At this time, we will continue IV antibiotics and daily dressing changes per wound care. Dr. Kaur to review the chart and will see the patient tomorrow. With the patient's multiple comorbidities, if surgery is elected, patient will be need to be optimized and heparin discontinued while continuing his clopidogrel and aspirin. Will await Dr. Kaur's input tomorrow and if surgery needed, will likely plan for Tuesday. History of Present Illness Reason for Consultation: Osteomyelitis right great toe Attending Physician: Filippo Maciel MD History of Present Illness Is a 58-year-old male with history of ongoing treatment for osteomyelitis of the right great toe. Patient has a history of atherosclerotic vascular disease/PAD, CAD with CABG in the past, CVA with right-sided weakness, diabetes mellitus with neuropathy. Further comorbidities listed below. Patient underwent PCTA by Dr. Gomes in November of this year. Even with this procedure done, the patient is osteomyelitis and infection of his right great toe have slowly continued to worsen. The patient has been seen by wound care who feel that the patient is at the end of conservative therapy and is in need of surgical debridement. We have been asked to see the patient for this possible debridement and/or amputation. Patient is currently lying in bed asleep but is easily awoken. He has no current complaints at this time and states that he is been dealing with this toe infection for quite some time. It is been discussed with him that he would need a possible debridement versus amputation of the portion of the toe. He is in agreement at this time. Allergies Allergy/AdvReac Type Severity Reaction Status Date / Time No Known Allergies Allergy Verified 12/14/18 10:08 Home Medications Home Medications Medication Instructions Recorded Confirmed Type aspirin 81 mg tablet,delayed 162 mg PO DAILY tab 07/10/18 12/18/18 History release atorvastatin 80 mg tablet 80 mg PO QPM 07/10/18 12/18/18 History baclofen 5 mg tablet 5 mg PO DAILY tab 07/10/18 12/18/18 History carvedilol 12.5 mg tablet 12.5 mg PO BID 07/10/18 12/18/18 History clopidogrel 75 mg tablet 75 mg PO DAILY 07/10/18 12/18/18 History insulin glargine (U- 100) 100 30 units SQ AMPM ml 07/10/18 12/18/18 History unit/mL subcutaneous solution lisinopril 40 mg tablet 40 mg PO DAILY 07/10/18 12/18/18 History metformin 1,000 mg tablet 1,000 mg PO BID 07/10/18 12/18/18 History warfarin 5 mg tablet 7.5 mg PO 5XWK tab 07/10/18 12/18/18 History Novolog U-100 Insulin aspart 14 unit SUBCUT ACHS 09/08/18 12/18/18 History clindamycin HCl 300 mg capsule 300 mg PO TID #90 cap 09/14/18 12/18/18 Rx warfarin 5 mg PO 2XWK 12/18/18 12/18/18 History Patient History Medical History Hypomagnesemia (Chronic) CVA (cerebral vascular accident) (Chronic) Diabetes mellitus, type II (Chronic) Dyslipidemia (Chronic) HTN (hypertension) (Chronic) Neuropathic ulcer of toe of right foot (Acute) Acquired claw toe of right foot (Acute) Acquired claw toe of left foot (Acute) Diabetes mellitus with diabetic polyneuropathy (Acute) Acquired hallux valgus of right foot (Acute) Hallux valgus (acquired), left foot (Acute) Aortic valve stenosis (Chronic) CAD (coronary artery disease) (Chronic) Carotid stenosis (Chronic) Dyslipidemia (Chronic) HTN (hypertension) (Chronic) Hemiplegia affecting right dominant side (Chronic) Monoplegia affecting right dominant side (Chronic) Obesity (Chronic) Proliferative diabetic retinopathy (Chronic) Retinal edema (Chronic) Right foot drop (Chronic) Status post cerebrovascular accident (Chronic) Status post myocardial infarction (Chronic) Superior mesenteric artery stenosis (Chronic) Type 2 diabetes mellitus (Chronic) Surgical History Hx of vitrectomy (Acute) S/P CABG x 3 (Chronic) S/P PTCA (percutaneous transluminal coronary angioplasty) (Chronic) S/P angioplasty with stent (Chronic) Family History Father Heart disease Social History Preferred Language: Polish Communication Ability: Effective Visual Impairment: No Limitations Hearing Ability: Normal Marine 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 No overt drainage or odor noted at this time. Moderate callus around the wound. I cannot appreciate dorsalis pedis pulse at this time. Capillary refill is sluggish. Results & Data Vital Signs (Past 12 Hours) Vital Signs Temp Pulse Pulse Resp BP BP Pulse Ox 12/19/18 15:37 38.7 C H 79 18 117/68 95 12/19/18 07:49 84 12/19/18 07:33 37.8 C H 91 H 17 110/69 94 Diagnostic Findings XR toe RT min 2V CLINICAL HISTORY: Right great toe infection COMPARISON: None FINDINGS: Note is made of destruction of the distal tuft of the distal phalanx of the right great toe. There is soft tissue swelling and soft tissue gas. There is subluxation of the right second metatarsophalangeal joint. Lateral view demonstrates a 7 mm linear metallic density which projects over the plantar aspect of the right midfoot. IMPRESSION: 1. Extensive osseous erosion of the distal tuft of the distal phalanx of right great toe consistent with osteomyelitis. Associated soft tissue swelling and soft tissue gas. 2. 7 mm linear metallic density which projects over the plantar soft tissues of the right midfoot which favors a radiopaque foreign body. 3. Subluxation at the level the right second metatarsophalangeal joint which is age-indeterminate but probably old/ Laboratory Results WBC 12.66 K/uL (4.8-10.8) H 12/19/18 07:49 RBC 4.51 M/uL (4.7-6.1) L 12/19/18 07:49 Hgb 12.2 g/dL (14.0-18.0) L 12/19/18 07:49 Hct 36.0 % (42-52) L 12/19/18 07:49 MCV 79.8 fL (80-100) L 12/19/18 07:49 MCH 27.1 pg (25-34) 12/19/18 07:49 MCHC 33.9 g/dL (32-36) 12/19/18 07:49 RDW Std Deviation 42.5 fL (36.4-46.3) 12/19/18 07:49 RDW Coeff of Caroline 14.7 % (11.5-14.5) H 12/19/18 07:49 Plt Count 182 K/uL (130-400) 12/19/18 07:49 MPV 10.4 fL (7.4-10.4) 12/19/18 07:49 Immature Gran % (Auto) 0.2 % 12/19/18 07:49 Neut % (Auto) 80.2 % 12/19/18 07:49 Lymph % (Auto) 11.0 % 12/19/18 07:49 [place] % (Auto) 8.3 % 12/19/18 07:49 Eos % (Auto) 0.1 % 12/19/18 07:49 Baso % (Auto) 0.2 % 12/19/18 07:49 Immature Gran # (Auto) 0.03 K/uL (0.00-0.02) H 12/19/18 07:49 Neut # (Auto) 10.16 K/uL (1.4-6.5) H 12/19/18 07:49 Lymph # (Auto) 1.39 K/uL (1.2-3.4) 12/19/18 07:49 [place] # (Auto) 1.05 K/uL (0.11-0.59) H 12/19/18 07:49 Eos # (Auto) 0.01 K/uL (0-0.5) 12/19/18 07:49 Baso # (Auto) 0.02 K/uL (0-0.2) 12/19/18 07:49 ESR 22 mm/hr (0-14) H 12/18/18 19:24 PT 15.9 Seconds (9.0-12.0) H 12/19/18 10:19 PT Cancelled 12/19/18 10:19 INR 1.6 (0.9-1.1) H 12/19/18 10:19 INR Cancelled 12/19/18 10:19 APTT 63.2 Seconds (21.0-31.0) H* 12/19/18 10:19 PTT Ratio 2.3 12/19/18 10:19 Sodium 139 mmol/L (136-145) 12/19/18 07:49 Potassium 3.7 mmol/L (3.5-5.1) 12/19/18 07:49 Chloride 106 mmol/L (98-107) 12/19/18 07:49 Carbon Dioxide 24 mmol/L (21-32) 12/19/18 07:49 Anion Gap 8.0 (3-11) 12/19/18 07:49 BUN 13 mg/dl (7-18) 12/19/18 07:49 Creatinine 0.89 mg/dl (0.6-1.4) 12/19/18 07:49 Est Cr Clr Drug Dosing 88.3 ml/min 12/19/18 07:49 Est GFR ( Amer) 107.7 12/19/18 07:49 Est GFR (Non-Af Amer) 92.9 12/19/18 07:49 BUN/Creatinine Ratio 14.9 (10-20) 12/19/18 07:49 Glucose 173 mg/dl (70-99) H 12/19/18 07:49 POC Glucose 210 (70-99) H 12/19/18 11:57 Lactate 2.0 mmol/L (0.4-2.0) 12/18/18 19:24 Calcium 8.5 mg/dl (8.5-10.1) 12/19/18 07:49 Magnesium 2.0 mg/dl (1.8-2.4) 12/19/18 07:49 Total Bilirubin 0.4 mg/dl (0.2-1) 12/18/18 19:24 AST 12 U/L (15-37) L 12/18/18 19:24 ALT 25 U/L (12-78) 12/18/18 19:24 Alkaline Phosphatase 74 U/L (45-117) 12/18/18 19:24 Total Creatine Kinase 134 U/L (39-308) 12/18/18 19:24 Troponin I < 0.015 ng/ml (0-0.045) 12/18/18 19:24 C-Reactive Protein 2.62 mg/dl (0-0.29) H 12/18/18 19:24 Total Protein 7.6 gm/dl (6.4-8.2) 12/18/18 19:24 Albumin 3.5 gm/dl (3.4-5.0) 12/18/18 19:24 Globulin 4.1 gm/dl (2.5-4.0) H 12/18/18 19:24 Albumin/Globulin Ratio 0.9 (0.9-2) 12/18/18 19:24 TSH 1.150 uIu/ml (0.300-4.500) 12/18/18 19:24 Urine Color Yellow 12/18/18 20:24 Urine Appearance Clear (Clear) 12/18/18 20:24 Urine pH 5.0 (4.5-7.5) 12/18/18 20:24 Ur Specific [place] 1.031 (1.000-1.030) H 12/18/18 20:24 Urine Protein Negative (Negative) 12/18/18 20:24 Urine Glucose (UA) 3+ (Negative) H 12/18/18 20:24 Urine Ketones Negative (Negative) 12/18/18 20:24 Urine Blood Negative (Negative) 12/18/18 20:24 Urine Nitrite Negative (Negative) 12/18/18 20:24 Urine Bilirubin Negative (Negative) 12/18/18 20:24 Urine Urobilinogen Negative (Negative) 12/18/18 20:24 Ur Leukocyte Esterase Negative (Negative) 12/18/18 20:24
--- NOTE | 2018-12-19 19:14 | Hospitalist Progress Note ---
Date of Service December 19, 2018 Assessment & Plan (1) Sepsis: Chronic Osteomyelitis of right great Toe Peripheral Artery Disease -58-year-old diabetic male with peripheral vascular disease with known osteomyelitis of the right great toe on chronic clindamycin therapy and follows with Dr. Arevalo from infectious disease service as outpatient -recent operation 12/06/18 for Bilateral Lower Extremity Angiogram, Percutaneous Transluminal Angioplasty by Dr. Tucker Gomes -patient presented to ED on 12/18/18 because of persistent difficulty walking -on toe X ray on 12/18/18 Extensive osseous erosion of the distal tuft of the distal phalanx of right great toe consistent with osteomyelitis. Associated soft tissue swelling and soft tissue gas -Patient had fever of 38.7 Celsius in evening of 12/19/18 while already on antibiotics of Zosyn and Daptomycin for presumed infection source of the right great toe which has chronic osteomyelitis -repeat blood cultures drawn -orthopedics consulted as there is concerns with the erosions of the distal tuft and question of gas forming organism in the soft tissues. -cardiology service has commented on surgical risk evaluation and to continue his chronic dual antiplatelet therapy -Patient has been seen by Dr. Arevalo of infectious disease service and as of this point in time it is unclear whether he deems the fever to be from chronic osteomyelitis from toe, or if fever is from another source -will continue antibiotics; will keep NPO after midnight pending further orthopedic recommendations, will have echocardiogram to rule out alternative source of infection such as cardiogenic source given recent angioplasty procedure of the lower extremities CAD with stents (He underwent CABG for multivessel CAD in his late 40s. He has had multiple post CABG PCI's including protected left main PCI and graft PCI) -continue aspirin and plavix -while awaiting determination whether any surgery needed for presumed infection, has been on heparin drip by nocturnalist admitting physician, hold coumadin for now -continue statin and carvedilol History of stroke in the past -chronic right sided weakness -admission Head CT No acute intracranial findings. No significant change since previous exam. Multiple old infarcts. 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 IV heparin Ms. Nasreen Turner, contact #[phone]. Subjective Patient had fever of 38.& Celsius in evening while already on antibiotics of Zos yn and Daptomycin. Patient otherwise did not seem concerned. He is comfortable. denies shortness of breath. no chest pain. no abdomen pain. no vomiting. no headache. has chronic right lower extremity weakness. no purulence from right big toe Physical Exam Constitutional: WD/WN, vitals as above Eyes: PERRL, conjunctivae normal, anicteric sclerae EOM intact bilaterally ENMT: external ear and nose normal, oropharynx normal Neck: trachea midline, no thyromegaly normal visual inspection Respiratory: normal respiratory effort, lungs clear to auscultation Cardiovascular: Rate/Rhythm: regular rate and regular rhythm Gastrointestinal (Abdomen): normal bowel sounds, soft, nontender, no hepatosplenomegaly Musculoskeletal: Head/Neck/Chest: normocephalic and head atraumatic Skin: Right great toe with ulceration at the tip that has some fibrous slough noted. No overt drainage or odor noted at this time Neurologic: PERRL, EOMI, accommodation nl, no face palsy, no dysarthria patient has less motor strength of right leg compared to left leg which is chronic Psychiatric: A+Ox3, euthymic affect Results & Data Vital Signs (Past 12 Hours) Vital Signs Temp Pulse Pulse Resp BP BP Pulse Ox 12/19/18 16:03 80 12/19/18 15:37 38.7 C H 79 18 117/68 95 12/19/18 07:49 84 12/19/18 07:33 37.8 C H 91 H 17 110/69 94
[2018-12-19] MEDS: DAPTOmycin 425 MG in SYRINGE 0 ML IV SCH (21:47)
[2018-12-20] MEDS: PIPERACILLIN/TAZOBACTAM 4.5 GM/120 ML BAG IV SCH ×3 (01:55→18:44)
[2018-12-20] MEDS: ACETAMINOPHEN 325 MG TAB PO PRN (03:47)
[2018-12-20 06:53] LABS: Partial Thromboplastin Ratio 2.4; Partial Thromboplastin Time 65.6 Seconds (21.0-31.0)
[2018-12-20] MEDS: ASPIRIN 81 MG ECTAB PO SCH ×2 (09:00→18:39)
[2018-12-20] MEDS: CARVEDILOL 12.5 MG TAB PO SCH ×2 (09:00→21:32)
[2018-12-20] MEDS: BACLOFEN 10 MG TAB PO SCH (09:00)
[2018-12-20] MEDS ORDERED: PERFLUTREN LIPID MICROSPHERE (DEFINITY) IV ONE (09:21)
[2018-12-20] MEDS: INSULIN ASPART 100 UNITS/ML 3 ML PEN SC SCH ×4 (10:13→21:33)
[2018-12-20 10:19] LABS: Creatinine Clr Calc Pharmacy 90.8 ml/min; Est GFR (African American) 94.4; Est GFR (Non-African American) 81.4
[2018-12-20] MEDS: INSULIN GLARGINE SOLOSTAR 100 UNITS/ML 3 ML PEN SQ SCH ×2 (10:46→21:31)
[2018-12-20] MEDS: CLOPIDOGREL BISULFATE 75 MG TAB PO SCH ×2 (13:34→18:39)
[2018-12-20] MEDS: LISINOPRIL 40 MG TAB PO SCH (13:34)
--- NOTE | 2018-12-20 17:35 | Hospitalist Progress Note ---
Date of Service December 20, 2018 Assessment & Plan (1) Osteomyelitis of great toe of right foot: Was on chronic clindamycin as outpatient and was doing well. Cont IV Dapto/Zosyn pending culture results and determination by Ortho on definitive management. Some fever overngiht. Cont supportive care. (2) Sepsis: resuscitated, presumed to be 2/2 great toe osteomyelitis. (3) Coronary artery disease: chronic, stable. Cont Plavix and ASA through any surgery as a recommendation from Cardiolgy. Cont Coreg and lisinopril. (4) DMII (diabetes mellitus, type 2): Cont basal bolus insulin--slightly above goal, so will consult glycemic pharmacist. (5) H/O: CVA (cerebrovascular accident): on heparin drip while coumadin is being held. (6) Aortic stenosis, severe: Cont cardiology evaluations as outpatient. (7) DVT prophylaxis: Heparin drip Full Code Dispo-wants to be transferred out of [facility]. Leda George DO [facility] Hospitalist Subjective 58 yo M with chronic right great toe osteomyelitis presented with SOB and dizziness and appeared septic on admission. He was on chronic clindamycin and followed by ID and wound care as outpatient. He has been on Dapto and Zosyn pending negative blood culture results and he is clinically improved back to baseline. He still spiked a fever to 101F around 0400 but has been afebrile all day. He and his are very upset about being kept NPO as they were not ready to proceed with any surgery. However, this wasn't clear and he didn't eat or receive any pills until 4pm today. He is doing well otherwise and reports no pain. He states he wants to be transferred to [facility], and his agrees but wants to ensure this will be paid for first. He is agreeable to stay until morning. Review of Systems Review of Systems: All systems reviewed & are unremarkable except as noted in HPI & below Physical Exam Physical Exam: CONSTITUTIONAL: WNWD, vitals as above, generally well- appearing EYES: normal conjunctivae, no scleral icterus ENT: MMM RESPIRATORY: clear to auscultation bilaterally, no crackles, rales or wheezes, normal respiratory effort CARDIOVASCULAR: regular rate and rhythm, S1 and 2 heard without murmurs, gallops or rubs, no JVD, no peripheral edema GASTROINTESTINAL: normal bowel sounds, soft, nontender, nondistended MUSCULOSKELETAL: RLE weakness compared to left which is chronic s/p stroke SKIN: warm and dry NEUROLOGIC: CN 2-12 grossly intact, normal cognition PSYCHIATRIC: alert cooperative and oriented to person, place and time. Results & Data Vital Signs (Past 12 Hours) Vital Signs Temp Pulse Pulse Resp BP BP Pulse Ox 12/20/18 16:34 77 12/20/18 15:54 37.1 C 75 18 145/83 H 97 12/20/18 11:35 36.8 C 62 19 117/70 95 12/20/18 07:36 63 12/20/18 07:25 36.9 C 67 18 101/67 96 Laboratory Results BMP 12/20/18 06:02 Creatinine 1.00 Medications Administered Current Inpatient Medications Acetaminophen (Tylenol) 650 mg PO Q4H PRN PRN Reason: Pain or Fever Stop: 01/18/19 00:35 Last Admin: 12/20/18 03:47 Dose: 650 mg Documented by: Aspirin (Ecotrin Ectab) 162 mg PO DAILY [facility] Stop: 01/18/19 08:59 Last Admin: 12/20/18 09:00 Dose: Not Given Documented by: Baclofen (Lioresal) 5 mg PO DAILY [facility] Stop: 01/18/19 08:59 Last Admin: 12/20/18 09:00 Dose: Not Given Documented by: Carvedilol (Coreg) 12.5 mg PO BID [facility] Stop: 01/18/19 00:35 Last Admin: 12/20/18 09:00 Dose: Not Given Documented by: Clopidogrel Bisulfate (Plavix) 75 mg PO DAILY [facility] Stop: 01/19/19 08:59 Last Admin: 12/20/18 13:34 Dose: Not Given Documented by: Dextrose (Dextrose 50%) 25 - 50 ml IV UD PRN; Protocol PRN Reason: Hypoglycemia Protocol Stop: 01/18/19 00:35 Glucagon (Glucagen) 1 mg SQ UD PRN; Protocol PRN Reason: Hypoglycemia Protocol Stop: 01/18/19 00:35 Glucose (Dex4 Glucose) 4 - 8 tabs PO UD PRN; Protocol PRN Reason: Hypoglycemia Protocol Stop: 01/18/19 00:35 Glucose (Glucose 40%) 15 - 30 gm PO UD PRN; Protocol PRN Reason: Hypoglycemia Protocol Stop: 01/18/19 00:35 Daptomycin 425 mg/ Syringe 8.5 mls @ 4.25 mls/min IV Q24H SUMA; Protocol Stop: 01/29/19 22:29 Last Admin: 12/19/18 21:47 Dose: 4.25 mls/min Documented by: Piperacillin Sod/Tazobactam Sod (Zosyn) 4.5 gm in 120 mls @ 30 mls/hr IV Q8H [facility]MA; Protocol Stop: 01/30/19 01:59 Last Infusion: 12/20/18 15:11 Dose: Infused Documented by: Promethazine HCl 12.5 mg/ (Sodium Chloride) 50.5 mls @ 202 mls/hr IV Q6H PRN PRN Reason: Nausea And Vomiting Stop: 01/18/19 00:35 Heparin Sodium/Dextrose (Heparin Sodium/Dextrose) 25,000 units in 500 mls @ 26 mls/hr IV .[id number] SUMA; Protocol Stop: 01/18/19 02:44 Last Titration: 12/20/18 07:04 Dose: 1,300 units/hr, 26 mls/hr Documented by: Insulin Aspart (Novolog Flexpen) 0 units SC ACHS [facility] Stop: 01/18/19 00:35 Last Admin: 12/20/18 14:31 Dose: Not Given Documented by: Insulin Glargine (Lantus Solostar Pen) 25 units SQ BID [facility] Stop: 01/18/19 00:35 Last Admin: 12/20/18 10:46 Dose: 25 units Documented by: Lisinopril (Zestril) 40 mg PO DAILY [facility] Stop: 01/18/19 08:59 Last Admin: 12/20/18 13:34 Dose: Not Given Documented by: Miscellaneous (Carbohydrates For Hypoglycemia) 15 - 30 gm PO UD PRN PRN Reason: Hypoglycemia Treatment Stop: 01/18/19 00:35 Miscellaneous Information (Consult) 1 ea N/A UD PRN PRN Reason: Consult Stop: 01/17/19 22:37 Miscellaneous Information (Consult) 1 ea N/A UD PRN PRN Reason: Consult Stop: 01/17/19 23:09 Morphine Sulfate (Morphine Sulfate) 2 mg IV Q4H PRN PRN Reason: Pain Stop: 01/02/19 00:35 Nitroglycerin (Nitrostat) 0.4 mg SL UD PRN PRN Reason: Chest Pain Stop: 01/18/19 00:35 Tramadol HCl (Ultram) 25 mg PO Q4H PRN PRN Reason: Pain Stop: 01/18/19 00:35
--- NOTE | 2018-12-20 18:18 | Cardiology Progress Note ---
Date of Service December 20, 2018 Assessment & Plan (1) Osteomyelitis of great toe of right foot: (2) Preoperative cardiovascular examination: (3) Coronary artery disease: Deja is a 58-year-old diabetic male with a history of early onset aggressive atherosclerotic vascular disease. He underwent coronary artery bypass grafting in his late 40s, and has had multiple percutaneous interventions to the [place] coronary arteries including the left main, as well as his bypass grafts in the intervening years. These have been performed at [facility]. Is also had a stroke in 2014 while on aspirin and clopidogrel, and a recurrent stroke in November, while on aspirin, clopidogrel, and Coumadin. Earlier this month, the patient underwent transluminal angioplasty of the right lower extremity in hopes of helping improve healing of a diabetic right great toe wound that has persisted for several months. He however presented with fevers and plain x-ray suggest right great toe osteomyelitis. His blood cultures have remained negative. Surgical intervention for the osteomyelitis is recommended, but the patient is very hesitant. He would like to have another opinion, and he and his spouse request transfer [place] [facility] I discussed this with Dr. George of the hospitalist group, who is going to work on arranging this. The patient has had no recent angina. Repeat echocardiogram today revealed normal LVEF, there is an apical wall motion abnormality that is chronic and unchanged compared to November,, and his aortic valve stenosis remains borderline severe, relatively unchanged compared to his prior echocardiograms in our office. As I discussed with the patient and his spouse, he is of course at risk for operative complications. He is not a candidate for spinal block due to his aortic stenosis, but I feel that his wound has been refractory to conservative therapy and that if surgical debridement is not performed, he will be at risk for ongoing sepsis. We will therefore proceed with operative intervention, with the knowledge that he is at high risk for perioperative cardiac complication, but he is well optimized without evidence of congestive heart failure or anginal symptoms. Subjective Chief complaint: Follow-up history of coronary heart disease, aortic valve stenosis, great toe osteomyelitis Subjective: Patient has been afebrile since 5:27 AM. His maximum temperature overnight last night was 38.3 C. Most recent temperature 37.1. Review of Systems Review of Systems: All systems reviewed & are unremarkable except as noted in HPI & below Physical Exam Physical Exam: Temp Pulse Resp BP Pulse Ox 37.1 C 77 18 145/83 H 97 12/20/18 15:54 12/20/18 16:34 12/20/18 15:54 12/20/18 15:54 12/20/18 15:54 Constitutional: + ill appearing (Chronically ill in appearance without acute distress); no acute distress Respiratory: normal respiratory effort, lungs clear to auscultation Cardiovascular: Rate/Rhythm: regular rate Heart Sounds: + murmur (II/mineral 6 systolic murmur) Vessels: no JVD Extremities: no edema Gastrointestinal (Abdomen): normal bowel sounds, soft, nontender, no hepatosplenomegaly Neurologic: moves all extremities; no focal motor deficits Results & Data Vital Signs (Past 12 Hours) Vital Signs Temp Pulse Pulse Resp BP BP Pulse Ox 12/20/18 16:34 77 12/20/18 15:54 37.1 C 75 18 145/83 H 97 12/20/18 11:35 36.8 C 62 19 117/70 95 12/20/18 07:36 63 12/20/18 07:25 36.9 C 67 18 101/67 96
[2018-12-20] MEDS: Heparin Adult STANDARD Wt-Based Dextrose 5% 25,000 units/500 mL IV SCH (18:38)
--- NOTE | 2018-12-20 20:23 | Infectious Disease Progress Nt ---
Date of Service December 20, 2018 Assessment & Plan (1) Sepsis: 58-year-old diabetic male with peripheral vascular disease with known osteomyelitis of the right great toe on chronic clindamycin therapy, now with acute onset of clinical picture of sepsis, no evidence of worsening infection of toe as etiologic. We will continue IV antibiotics pending final blood culture results. Await final decision regarding surgical intervention. Will follow. (2) Osteomyelitis of great toe of right foot: Subjective Patient seen in follow-up for osteomyelitis of the toe. Toe pain are about the same, no increase in redness or swelling, no increase in drainage. Remains afebrile. Review of Systems Review of Systems: All systems reviewed & are unremarkable except as noted in HPI & below Physical Exam Constitutional: WD/WN, vitals as above comfortable; no acute distress Eyes: PERRL, conjunctivae normal, anicteric sclerae ENMT: external ear and nose normal, oropharynx normal Neck: trachea midline, no thyromegaly neck nontender Respiratory: normal respiratory effort, lungs clear to auscultation normal percussion; does not use accessory muscles Cardiovascular: Rate/Rhythm: regular rate and regular rhythm Heart Sounds: normal S1 and normal S2; no gallop, no murmur and no cardiac rub Vessels: normal peripheral pulses; no JVD Gastrointestinal (Abdomen): normal bowel sounds, soft, nontender, no hepatosplenomegaly Musculoskeletal: no cyanosis or clubbing, extremities motor strength 5/5 Spine: thoracic spine normal to inspection and lumbar spine normal to inspection; no cervical spinal tenderness Skin: no rashes, warm and dry normal turgor and + ulcer (Right great toe, unchanged from examination 2 weeks ago) Neurologic: moves all extremities and + focal motor deficit Psychiatric: A+Ox3, euthymic affect Orientation: cooperative Lymphatic: no cervical or axillary lymphadenopathy no inguinal lymphadenopathy Results & Data Vital Signs (Past 12 Hours) Vital Signs Temp Pulse Pulse Resp BP Pulse Ox 12/20/18 19:49 36.9 C 77 18 168/78 H 97 12/20/18 16:34 77 12/20/18 15:54 37.1 C 75 18 145/83 H 97 12/20/18 11:35 36.8 C 62 19 117/70 95 Laboratory Results BMP 12/20/18 06:02 Creatinine 1.00 Diagnostic Findings Microbiology 12/19/18 18:43 Blood Aerobic Blood Culture - Preliminary No growth in Aerobic bottle after 24 hours. 12/19/18 18:37 Blood Aerobic Blood Culture - Preliminary No growth in Aerobic bottle after 24 hours. 12/19/18 18:37 Blood Anaerobic Blood Culture - Preliminary No growth in Anaerobic bottle after 24 hours. 12/18/18 19:24 Blood Aerobic Blood Culture - Preliminary No growth in Aerobic bottle after 24 hours. 12/18/18 19:24 Blood Anaerobic Blood Culture - Preliminary No growth in Anaerobic bottle after 24 hours. 12/18/18 19:27 Blood Aerobic Blood Culture - Preliminary No growth in Aerobic bottle after 24 hours. 12/18/18 19:27 Blood Anaerobic Blood Culture - Preliminary No growth in Anaerobic bottle after 24 hours.
[2018-12-20] MEDS: DAPTOmycin 425 MG in SYRINGE 0 ML IV SCH (21:31)
[2018-12-20] MEDS ORDERED: PHARMACY GLYCEMIC MGMT CONSULT PRN (22:23)
[2018-12-20] MEDS ORDERED: INSULIN ASPART 100 UNITS/ML 3 ML PEN SC STA (22:33)
[2018-12-20] MEDS ORDERED: INSULIN GLARGINE SOLOSTAR 100 UNITS/ML 3 ML PEN SQ STA (22:36)
[2018-12-21] MEDS: ACETAMINOPHEN 325 MG TAB PO PRN (00:21)
[2018-12-21] MEDS ORDERED: INSULIN ASPART 100 UNITS/ML 3 ML PEN SC SCH ×2 (01:00→02:00)
[2018-12-21] MEDS: PIPERACILLIN/TAZOBACTAM 4.5 GM/120 ML BAG IV SCH ×4 (01:45→23:45)
[2018-12-21] MEDS: INSULIN ASPART 100 UNITS/ML 3 ML PEN SC SCH ×5 (01:48→21:21)
[2018-12-21] MEDS: LISINOPRIL 40 MG TAB PO SCH (07:51)
[2018-12-21] MEDS: CLOPIDOGREL BISULFATE 75 MG TAB PO SCH (07:51)
[2018-12-21] MEDS: BACLOFEN 10 MG TAB PO SCH (07:51)
[2018-12-21] MEDS: CARVEDILOL 12.5 MG TAB PO SCH ×2 (07:52→21:23)
[2018-12-21] MEDS: ASPIRIN 81 MG ECTAB PO SCH (07:52)
[2018-12-21] MEDS: INSULIN GLARGINE SOLOSTAR 100 UNITS/ML 3 ML PEN SQ SCH ×2 (08:36→21:22)
[2018-12-21 08:50] LABS: Hematocrit (blood only) 36.7 % (42-52); Hemoglobin 12.2 g/dL (14.0-18.0); Mean Corpuscular Hgb Conc 33.2 g/dL (32-36); Mean Corpuscular Volume 79.6 fL (80-100); Mean Platelet Volume 10.4 fL (7.4-10.4); Platelet Count 171 K/uL (130-400); RDW Coefficient of Variation 14.6 % (11.5-14.5); Red Blood Count 4.61 M/uL (4.7-6.1); White Blood Count 5.57 K/uL (4.8-10.8)
[2018-12-21 09:10] LABS: Estimated Average Glucose 169 mg/dl; Hemoglobin A1C 7.5 % (4.5-5.6)
[2018-12-21 09:11] LABS: BUN Creatinine Ratio 13.2 (10-20); Calcium 8.4 mg/dl (8.5-10.1); Creatinine Clr Calc Pharmacy 101.8 ml/min; Est GFR (African American) 108.2; Est GFR (Non-African American) 93.4; Potassium 3.8 mmol/L (3.5-5.1)
[2018-12-21 09:14] LABS: Partial Thromboplastin Ratio 2.7
[2018-12-21 09:22] LABS: Partial Thromboplastin Time 73.7 Seconds (21.0-31.0)
--- NOTE | 2018-12-21 10:35 | Pharmacy Report ---
Glycemic Control Consultation - Date of Service December 21, 2018 - Scope Scope: Glycemic Pharmacist consulted by Dr George on 12/20/18 for glycemic control and to write orders per [facility] inpatient glycemic control protocol - Objective Weight: 95.5 kg Accuchecks BSG (last 24hrs): 12/20/18 12/20/18 12/20/18 12:00 16:37 20:15 Glucose POC Glucose 206 H 220 H 313 H* 12/20/18 12/21/18 12/21/18 20:17 01:30 08:00 Glucose POC Glucose 291 H 183 H 143 H 12/21/18 08:36 Glucose 195 H POC Glucose Laboratory Data (last 24hrs): 12/21/18 08:36 Potassium 3.8 Carbon Dioxide 27 Anion Gap 6.0 Creatinine 0.88 Est Cr Clr Drug Dosing 101.8 HbA1c: Hemoglobin A1c 7.5 % (4.5-5.6) H 12/21/18 08:36 - Recent Pertinent Medications Outpatient Anti-diabetic Regimen: * Lantus 30 units BID * Novolog 14 units ACHS * Metformin 1 gram BID * A1c = 7.5 % 12/21/18 The patient is currently receiving: * Basal insulin: Lantus 25 units every 12 hours * Correctional Insulin: Novolog Correction per scale ACHS Goal Range: Low 140 mg/dL - High 180 mg/dL Correction Factor: 25 mg/dL/unit * Prandial insulin: Per carb ratio of 1 unit per 15 grams CHO consumed Risk Factors for Insulin Resistance: * Infection: IV Dapto + Zosyn - osteomyelitis of right toe * Diet: Type 2 DM - Assessment & Plan Assessment & Plan: ASSESSMENT: * 58 year old male type 2 diabetic with osteomyelitis of right toe, on IV antibiotics * Blood sugars above goal, pharmacy consulted. Patient is on lower than home doses of insulin, will increase Lantus and tighten CF and CR at this time. * ADA & AACE recommend a goal blood sugar range 140-180 mg/dl for the majority of critically ill & non-critically ill patients. However, more stringent targets may be selected in individual cases. Will utilize more stringent goal of 110-140mg/dl based on patient age & comorbidities. Additionally, tighter glycemic control is warranted to facilitate wound/infection healing. PLAN FOR INPATIENT GLYCEMIC CONTROL: * Holding outpatient oral diabetes medications * Basal insulin -increase * Lantus 10 units x 1 last night (to make up deficit) then * Lantus 30 units SQ BID starting this morning * Bolus insulin * NovoLog per scale ACHS or Q6hrs while NPO * CHANGE: Goal Range: Low 110 mg/dL - High 140 mg/dL * TIGHTEN: Correction Factor: 15 mg/dL/unit * TIGHTEN: Nutritional / Prandial insulin per carb ratio of 1 unit per 5 grams CHO consumed * Please note that the plan above was derived based on current level of insulin resistance and hospital stress. These recommendations are appropriate for inpatient admission only. Plan of care upon discharge will need to be reassessed to avoid potential outpatient hypo/hyperglycemia. Thank you.
[2018-12-21] MEDS: Heparin Adult STANDARD Wt-Based Dextrose 5% 25,000 units/500 mL IV SCH (14:03)
[2018-12-21] MEDS ORDERED: WARFARIN SOD 7.5 MG TAB PO SCH (16:00)
[2018-12-21 16:14] LABS: Partial Thromboplastin Ratio 2.5
[2018-12-21 16:19] LABS: Partial Thromboplastin Time 68.6 Seconds (21.0-31.0)
--- NOTE | 2018-12-21 18:40 | Hospitalist Progress Note ---
Date of Service December 21, 2018 Assessment & Plan (1) Osteomyelitis of great toe of right foot: Was on chronic clindamycin as outpatient and was doing well. SEpsis brought him in the hospital. Cont IV Dapto/Zosyn pending culture results and determination by Ortho on definitive management. Afebrile and resuscitated and clinically better. Will repeat MRI of R foot to ensure OM hasn't progressed. LAst MRI was in August 2018. (2) Sepsis: resuscitated, presumed to be 2/2 great toe osteomyelitis. (3) Coronary artery disease: chronic, stable. Cont Plavix and ASA through any surgery as a recommendation from Cardiolgy. Cont Coreg and lisinopril. (4) DMII (diabetes mellitus, type 2): Cont basal bolus insulin--slightly above goal, so will consult glycemic pharmacist. (5) H/O: CVA (cerebrovascular accident): on heparin drip, coumadin was restarted today as no planned procedure is in the works. Trend daily INR (6) Aortic stenosis, severe: Cont cardiology evaluations as outpatient. (7) DVT prophylaxis: Heparin drip Full Code Dispo-stay at [facility] until treatment medically and then take antibiotic pill to treat OM infection. Leda George, [facility] Hospitalist Subjective Doing well today , reports less pain in his right foot today, but is having some pain with walking on it. Reports only low grade temp overnight, but no fevers. Tolerating PO. Review of Systems Review of Systems: All systems reviewed & are unremarkable except as noted in HPI & below Physical Exam Physical Exam: CONSTITUTIONAL: WNWD, vitals as above, generally well- appearing EYES: normal conjunctivae, no scleral icterus ENT: MMM RESPIRATORY: clear to auscultation bilaterally, no crackles, rales or wheezes, normal respiratory effort CARDIOVASCULAR: regular rate and rhythm, S1 and 2 heard without murmurs, gallops or rubs, no JVD, no peripheral edema GASTROINTESTINAL: normal bowel sounds, soft, nontender, nondistended MUSCULOSKELETAL: RLE weakness compared to left which is chronic s/p stroke, wound on R great toe, not visualized today. SKIN: warm and dry NEUROLOGIC: CN 2-12 grossly intact, normal cognition PSYCHIATRIC: alert cooperative and oriented to person, place and time. Results & Data Vital Signs (Past 12 Hours) Vital Signs Temp Pulse Pulse Resp BP BP Pulse Ox 12/21/18 16:36 37.6 C H 77 19 149/75 H 98 12/21/18 12:04 37.3 C 72 18 121/69 99 12/21/18 09:25 65 114/71 12/21/18 07:40 36.6 C 70 20 191/74 H 100 12/21/18 07:38 67 Laboratory Results Short CBC 12/21/18 Range/Units 08:36 WBC 5.57 (4.8-10.8) K/uL Hgb 12.2 L (14.0-18.0) g/dL Hct 36.7 L (42-52) % Plt Count 171 (130-400) K/uL BMP 12/21/18 08:36 Sodium 136 Potassium 3.8 Chloride 103 Carbon Dioxide 27 BUN 12 Creatinine 0.88 Glucose 195 H Calcium 8.4 L Medications Administered Current Inpatient Medications Acetaminophen (Tylenol) 650 mg PO Q4H PRN PRN Reason: Pain or Fever Stop: 01/18/19 00:35 Last Admin: 12/21/18 00:21 Dose: 650 mg Documented by: Aspirin (Ecotrin Ectab) 162 mg PO DAILY [facility] Stop: 01/18/19 08:59 Last Admin: 12/21/18 07:52 Dose: 162 mg Documented by: Baclofen (Lioresal) 5 mg PO DAILY [facility] Stop: 01/18/19 08:59 Last Admin: 12/21/18 07:51 Dose: 5 mg Documented by: Carvedilol (Coreg) 12.5 mg PO BID [facility] Stop: 01/18/19 00:35 Last Admin: 12/21/18 07:52 Dose: 12.5 mg Documented by: Clopidogrel Bisulfate (Plavix) 75 mg PO DAILY [facility] Stop: 01/19/19 08:59 Last Admin: 12/21/18 07:51 Dose: 75 mg Documented by: Dextrose (Dextrose 50%) 25 - 50 ml IV UD PRN; Protocol PRN Reason: Hypoglycemia Protocol Stop: 01/18/19 00:35 Glucagon (Glucagen) 1 mg SQ UD PRN; Protocol PRN Reason: Hypoglycemia Protocol Stop: 01/18/19 00:35 Glucose (Dex4 Glucose) 4 - 8 tabs PO UD PRN; Protocol PRN Reason: Hypoglycemia Protocol Stop: 01/18/19 00:35 Glucose (Glucose 40%) 15 - 30 gm PO UD PRN; Protocol PRN Reason: Hypoglycemia Protocol Stop: 01/18/19 00:35 Daptomycin 425 mg/ Syringe 8.5 mls @ 4.25 mls/min IV Q24H [facility]; Protocol Stop: 01/29/19 22:29 Last Admin: 12/20/18 21:31 Dose: 4.25 mls/min Documented by: Piperacillin Sod/Tazobactam Sod (Zosyn) 4.5 gm in 120 mls @ 30 mls/hr IV Q8H [facility]; Protocol Stop: 01/30/19 01:59 Last Admin: 12/21/18 18:26 Dose: 30 mls/hr Documented by: Promethazine HCl 12.5 mg/ (Sodium Chloride) 50.5 mls @ 202 mls/hr IV Q6H PRN PRN Reason: Nausea And Vomiting Stop: 01/18/19 00:35 Heparin Sodium/Dextrose (Heparin Sodium/Dextrose) 25,000 units in 500 mls @ 24 mls/hr IV .[id number] SUMA; Protocol Stop: 01/18/19 02:44 Last Titration: 12/21/18 16:46 Dose: 1,200 units/hr, 24 mls/hr Documented by: Insulin Aspart (Novolog Flexpen) 0 units SC ACHS [facility]; Protocol Stop: 01/18/19 00:35 Last Admin: 12/21/18 18:27 Dose: 25 units Documented by: Insulin Glargine (Lantus Solostar Pen) 30 units SQ BID [facility]; Protocol Stop: 01/20/19 08:59 Last Admin: 12/21/18 08:36 Dose: 30 units Documented by: Lisinopril (Zestril) 40 mg PO DAILY [facility] Stop: 01/18/19 08:59 Last Admin: 12/21/18 07:51 Dose: 40 mg Documented by: Miscellaneous (Carbohydrates For Hypoglycemia) 15 - 30 gm PO UD PRN PRN Reason: Hypoglycemia Treatment Stop: 01/18/19 00:35 Miscellaneous Information (Consult) 1 ea N/A UD PRN PRN Reason: Consult Stop: 01/17/19 22:37 Miscellaneous Information (Consult) 1 ea N/A UD PRN PRN Reason: Consult Stop: 01/17/19 23:09 Miscellaneous Information (Consult Glycemic Management Pharmacy) 1 ea N/A UD PRN PRN Reason: Consult Stop: 01/19/19 22:22 Morphine Sulfate (Morphine Sulfate) 2 mg IV Q4H PRN PRN Reason: Pain Stop: 01/02/19 00:35 Nitroglycerin (Nitrostat) 0.4 mg SL UD PRN PRN Reason: Chest Pain Stop: 01/18/19 00:35 Tramadol HCl (Ultram) 25 mg PO Q4H PRN PRN Reason: Pain Stop: 01/18/19 00:35 Warfarin Sodium (Coumadin) 7.5 mg PO DAILY@1600 [facility] Stop: 01/20/19 15:59 Last Admin: 12/21/18 16:44 Dose: 7.5 mg Documented by:
--- NOTE | 2018-12-21 20:55 | Infectious Disease Progress Nt ---
Date of Service December 21, 2018 Assessment & Plan (1) Sepsis: 58-year-old diabetic male with peripheral vascular disease with known osteomyelitis of the right great toe on chronic clindamycin therapy, now with acute onset of clinical picture of sepsis, no evidence of worsening infection of toe as etiologic. We will continue IV antibiotics, follow-up MRI to be obtained. Will follow. (2) Osteomyelitis of great toe of right foot: Subjective Doing well today , reports less pain in his right foot today, but is having some pain with walking on it. Reports only low grade temp overnight, but no fevers. Tolerating PO. Physical Exam Constitutional: WD/WN, vitals as above comfortable; no acute distress Eyes: PERRL, conjunctivae normal, anicteric sclerae ENMT: external ear and nose normal, oropharynx normal Neck: trachea midline, no thyromegaly neck nontender Respiratory: normal respiratory effort, lungs clear to auscultation normal percussion; does not use accessory muscles Cardiovascular: Rate/Rhythm: regular rate and regular rhythm Heart Sounds: normal S1 and normal S2; no gallop, no murmur and no cardiac rub Vessels: normal peripheral pulses; no JVD Gastrointestinal (Abdomen): normal bowel sounds, soft, nontender, no hepatosplenomegaly Musculoskeletal: no cyanosis or clubbing, extremities motor strength 5/5 Spine: thoracic spine normal to inspection and lumbar spine normal to inspection; no cervical spinal tenderness Skin: no rashes, warm and dry normal turgor and + ulcer (Right great toe, unchanged from examination 2 weeks ago) Neurologic: moves all extremities and + focal motor deficit Psychiatric: A+Ox3, euthymic affect Orientation: cooperative Lymphatic: no cervical or axillary lymphadenopathy no inguinal lymphadenopathy Results & Data Vital Signs (Past 12 Hours) Vital Signs Temp Pulse Resp BP Pulse Ox 12/21/18 16:36 37.6 C H 77 19 149/75 H 98 12/21/18 12:04 37.3 C 72 18 121/69 99 12/21/18 09:25 65 114/71 Laboratory Results Short CBC 12/21/18 Range/Units 08:36 WBC 5.57 (4.8-10.8) K/uL Hgb 12.2 L (14.0-18.0) g/dL Hct 36.7 L (42-52) % Plt Count 171 (130-400) K/uL BMP 12/21/18 08:36 Sodium 136 Potassium 3.8 Chloride 103 Carbon Dioxide 27 BUN 12 Creatinine 0.88 Glucose 195 H Calcium 8.4 L Diagnostic Findings Microbiology 12/19/18 18:43 Blood Aerobic Blood Culture - Preliminary No growth in Aerobic bottle after 48 hours. 12/19/18 18:43 Blood Anaerobic Blood Culture - Final 12/19/18 18:37 Blood Aerobic Blood Culture - Preliminary No growth in Aerobic bottle after 48 hours. 12/19/18 18:37 Blood Anaerobic Blood Culture - Preliminary No growth in Anaerobic bottle after 48 hours. 12/18/18 19:24 Blood Aerobic Blood Culture - Preliminary No growth in Aerobic bottle after 48 hours. 12/18/18 19:24 Blood Anaerobic Blood Culture - Preliminary No growth in Anaerobic bottle after 48 hours. 12/18/18 19:27 Blood Aerobic Blood Culture - Preliminary No growth in Aerobic bottle after 48 hours. 12/18/18 19:27 Blood Anaerobic Blood Culture - Preliminary No growth in Anaerobic bottle after 48 hours.
[2018-12-21] MEDS ORDERED: GADOBUTROL 65ML VIAL IV PRN (23:11)
[2018-12-21] MEDS: DAPTOmycin 425 MG in SYRINGE 0 ML IV SCH (23:59)
[2018-12-22 00:07] LABS: Partial Thromboplastin Ratio 1.4; Partial Thromboplastin Time 36.7 Seconds (21.0-31.0)
[2018-12-22] MEDS ORDERED: HEPARIN IV BOLUS 6,000 UNITS in SYRINGE 0 ML IV ONE (00:30)
[2018-12-22] MEDS: PIPERACILLIN/TAZOBACTAM 4.5 GM/120 ML BAG IV SCH ×2 (02:40→11:05)
--- NOTE | 2018-12-22 07:28 | Magnetic Resonance Report ---
MR foot RT wo/w con CLINICAL HISTORY: 58 years-old Male presenting with wound on the toe for 6 months, h/o osteo, ?progre ssion. TECHNIQUE: Multisequence, multiplanar MR imaging of the right foot was performed before and after the administration of intravenous contrast. IV contrast: 9.5 mL of Gadavist. COMPARISON: Plain radiographs of the right first toe from 12/18/2018. FINDINGS: Localizer images: Unremarkable. A marker is in place over the first toe. Bone marrow signal of the distal phalanx of the first toe is T2 hyperintense, T1 hypointense diffusely. There is also osteolysis of the tuft of the distal phalan x as on prior radiograph. Extensive enhancement of the distal phalanx, and diffuse enhancement of the soft tissues of the mid to distal aspect of the first toe. No significant fluid at the interphalange al joint. Bone marrow signal of the proximal phalanx of the first toe is preserved. No additional sit es of abnormal bone marrow signal. Extensive subcutaneous edema primarily along the dorsum of the foot. Mild T2 hyperintensity of muscul ature diffusely. Susceptibility artifact in the plantar aspect of the foot with a presumed foreign body embedded into the subcutaneous tissue and approaching the plantar fascia. No associated abscess at this time. This is at the level of the midfoot-forefoot junction. This correlates with the embedded metallic foreign body evident on radiograph. IMPRESSION: 1. Embedded foreign body along the plantar aspect of the foot at the level of the midfoot-forefoot j unction. 2. Osteomyelitis of the distal phalanx of the first toe. No evidence of septic arthritis at the inte rphalangeal joint or involvement of the proximal phalanx at this time. The report will be called/faxed according to standard departmental protocol. Electronically signed by: Yehuda Chowdary M.D. 12/22/2018 7:27 AM
[2018-12-22 07:51] LABS: Hematocrit (blood only) 34.6 % (42-52); Hemoglobin 11.7 g/dL (14.0-18.0); Mean Corpuscular Hgb Conc 33.8 g/dL (32-36); Mean Corpuscular Volume 80.1 fL (80-100); Mean Platelet Volume 10.2 fL (7.4-10.4); Platelet Count 187 K/uL (130-400); RDW Coefficient of Variation 14.3 % (11.5-14.5); RDW Standard Deviation 42.1 fL (36.4-46.3); Red Blood Count 4.32 M/uL (4.7-6.1); White Blood Count 4.97 K/uL (4.8-10.8)
[2018-12-22 08:10] LABS: INR 1.2 (0.9-1.1); Partial Thromboplastin Ratio 2.1; Prothrombin Time 11.8 Seconds (9.0-12.0)
[2018-12-22 08:15] LABS: Partial Thromboplastin Time 57.8 Seconds (21.0-31.0)
[2018-12-22 08:17] LABS: BUN Creatinine Ratio 12.9 (10-20); Est GFR (African American) 108.7; Est GFR (Non-African American) 93.8; Potassium 3.8 mmol/L (3.5-5.1)
[2018-12-22] MEDS: BACLOFEN 10 MG TAB PO SCH (08:30)
[2018-12-22] MEDS: CARVEDILOL 12.5 MG TAB PO SCH ×2 (08:31→21:46)
[2018-12-22] MEDS: CLOPIDOGREL BISULFATE 75 MG TAB PO SCH (08:32)
[2018-12-22] MEDS: LISINOPRIL 40 MG TAB PO SCH (08:32)
[2018-12-22] MEDS: ASPIRIN 81 MG ECTAB PO SCH (08:32)
[2018-12-22] MEDS: INSULIN GLARGINE SOLOSTAR 100 UNITS/ML 3 ML PEN SQ SCH ×2 (08:33→21:47)
[2018-12-22] MEDS: INSULIN ASPART 100 UNITS/ML 3 ML PEN SC SCH ×5 (08:34→21:50)
[2018-12-22] MEDS: Heparin Adult STANDARD Wt-Based Dextrose 5% 25,000 units/500 mL IV SCH (08:59)
[2018-12-22] MEDS ORDERED: INSULIN GLARGINE SOLOSTAR 100 UNITS/ML 3 ML PEN SQ ONE (12:45)
--- NOTE | 2018-12-22 13:41 | Infectious Disease Progress Nt ---
Date of Service December 22, 2018 Assessment & Plan (1) Sepsis: 58-year-old diabetic male with peripheral vascular disease with known osteomyelitis of the right great toe on chronic clindamycin therapy, now with acute onset of clinical picture of sepsis, but with no evidence of any worsening of toe infection, blood cultures remain negative. I am not convinced that infection of the toe is related to his acute episode. Would recommend discontinuation of IV antibiotics and starting patient back on clindamycin 300 mg 3 times daily p.o. Discussed situation at length with his . Would consult orthopedics regarding foreign body in foot and need for further intervention. (2) Osteomyelitis of great toe of right foot: Subjective Patient seen in follow-up for osteomyelitis of the toe. Patient states he is feeling back to baseline. No fever. No increase in pain in his toe. MRI scan reveals probable foreign body in the foot, no associated abscess. No other new complaints. Review of Systems Review of Systems: All systems reviewed & are unremarkable except as noted in HPI & below Physical Exam Constitutional: WD/WN, vitals as above comfortable; no acute distress Eyes: PERRL, conjunctivae normal, anicteric sclerae ENMT: external ear and nose normal, oropharynx normal Neck: trachea midline, no thyromegaly neck nontender Respiratory: normal respiratory effort, lungs clear to auscultation normal percussion; does not use accessory muscles Cardiovascular: Rate/Rhythm: regular rate and regular rhythm Heart Sounds: normal S1 and normal S2; no gallop, no murmur and no cardiac rub Vessels: normal peripheral pulses; no JVD Gastrointestinal (Abdomen): normal bowel sounds, soft, nontender, no hepatosplenomegaly Musculoskeletal: no cyanosis or clubbing, extremities motor strength 5/5 Spine: thoracic spine normal to inspection and lumbar spine normal to inspection; no cervical spinal tenderness Skin: no rashes, warm and dry normal turgor and + ulcer (Right great toe, unchanged from examination 2 weeks ago) Neurologic: moves all extremities and + focal motor deficit Psychiatric: A+Ox3, euthymic affect Orientation: cooperative Lymphatic: no cervical or axillary lymphadenopathy no inguinal lymphadenopathy Results & Data Vital Signs (Past 12 Hours) Vital Signs Temp Pulse Resp BP Pulse Ox 12/22/18 08:20 36.8 C 71 18 117/64 96 Laboratory Results Short CBC 12/22/18 Range/Units 07:16 WBC 4.97 (4.8-10.8) K/uL Hgb 11.7 L (14.0-18.0) g/dL Hct 34.6 L (42-52) % Plt Count 187 (130-400) K/uL BMP 12/22/18 07:16 Sodium 137 Potassium 3.8 Chloride 105 Carbon Dioxide 26 BUN 11 Creatinine 0.87 Glucose 197 H Calcium 9.0 Cardiac Enzymes 12/22/18 Range/Units 07:16 Total Creatine Kinase 74 (39-308) U/L Diagnostic Findings Microbiology 12/19/18 18:43 Blood Aerobic Blood Culture - Preliminary No growth in Aerobic bottle after 48 hours. 12/19/18 18:43 Blood Anaerobic Blood Culture - Final 12/19/18 18:37 Blood Aerobic Blood Culture - Preliminary No growth in Aerobic bottle after 48 hours. 12/19/18 18:37 Blood Anaerobic Blood Culture - Preliminary No growth in Anaerobic bottle after 48 hours. 12/18/18 19:24 Blood Aerobic Blood Culture - Preliminary No growth in Aerobic bottle after 48 hours. 12/18/18 19:24 Blood Anaerobic Blood Culture - Preliminary No growth in Anaerobic bottle after 48 hours. 12/18/18 19:27 Blood Aerobic Blood Culture - Preliminary No growth in Aerobic bottle after 48 hours. 12/18/18 19:27 Blood Anaerobic Blood Culture - Preliminary No growth in Anaerobic bottle after 48 hours.
--- NOTE | 2018-12-22 14:44 | Pharmacy Report ---
Pharmacy Glycemic Short Note 2 - Date of Service December 22, 2018 - Glycemic Short BSG Results (Last 24 hours): 12/21/18 12/21/18 12/22/18 17:02 20:28 07:16 Glucose 197 H POC Glucose 221 H 280 H 12/22/18 12/22/18 07:36 11:45 Glucose POC Glucose 190 H 232 H OUTPATIENT ANTIDIABETIC REGIMEN: * Lantus 30 units BID * Novolog 14 units ACHS * Metformin 1 gram BID * A1c = 7.5 % 12/21/18 ASSESSMENT: 12/22 * Patient rec'd 114 units of insulin yesterday (60 of this was basal) * BSGs remain above goal. No changes to causes of insulin resistance. * Est TDD ~130 - 150 units so will adjust insulin regimen to reflect this * I increased the Lantus dose this AM but had to confirm the dose given with the nurse b/c 300 units was documented. I confirmed that only 30 units was given so ordered additional 10 units at lunch to total 40 units that was ordered. 12/21 * 58 year old male type 2 diabetic with osteomyelitis of right toe, on IV antibiotics * Blood sugars above goal, pharmacy consulted. Patient is on lower than home doses of insulin, will increase Lantus and tighten CF and CR at this time. * ADA & AACE recommend a goal blood sugar range 140-180 mg/dl for the majority of critically ill & non-critically ill patients. However, more stringent targets may be selected in individual cases. Will utilize more stringent goal of 110-140mg/dl based on patient age & comorbidities. Additionally, tighter glycemic control is warranted to facilitate wound/infection healing. PLAN FOR INPATIENT GLYCEMIC CONTROL: * Continue to hold outpatient oral diabetes medications * Basal insulin - increase * Lantus SQ BID per the following scale: * 30 units for BSG 140 or less * 40 units for BSG > 140 * Bolus insulin - tighten goal, CF and CR; add overnight check to provide additional coverage if needed * NovoLog per scale ACHS or Q6hrs while NPO * Goal Range: Low 110 mg/dL - High 140 mg/dL * Correction Factor: 10 mg/dL/unit * Nutritional / Prandial insulin per carb ratio of 1 unit per 3 grams CHO consumed PLAN FOR DISCHARGE: * A1c of 7.5% is improved from 2018 (9.2%) * Continue outpatient regimen on discharge with close f/u as an outpatient
--- NOTE | 2018-12-22 17:17 | Hospitalist Progress Note ---
Date of Service December 22, 2018 Assessment & Plan (1) Osteomyelitis of great toe of right foot: Was on chronic clindamycin as outpatient and was doing well. Sepsis brought him in the hospital. IV Dapto/Zosyn changed to oral clindamycin again today. Will monitor overnight for fevers. Awaiting Ortho input on foreign body removal. (2) Sepsis: resuscitated, presumed to be 2/2 great toe osteomyelitis. (3) Coronary artery disease: chronic, stable. Cont Plavix and ASA through any surgery as a recommendation from Cardiolgy. Cont Coreg and lisinopril. (4) DMII (diabetes mellitus, type 2): Cont basal bolus insulin--glucose is improved and at goal. Appreciate glycemic pharmacist recommendations. (5) H/O: CVA (cerebrovascular accident): on heparin drip, coumadin was restarted yesterday as no planned procedure is in the works. Then this was held again based on the foreign body issue. Trend daily INR. He will likely want to leave soon and will require a Lovenox bridge. (6) Aortic stenosis, severe: Cont cardiology evaluations as outpatient. (7) DVT prophylaxis: Heparin drip Full Code Dispo-stay at [facility] until treatment medically and then take antibiotic pill to treat OM infection. Leda George DO [facility] Hospitalist Subjective Patient is still doing well today. He is afebrile and denies any chills overnight or today. MRI overnight reveals no worsening of the osteomyelitis which is still contained in the distal phalanx of the right great toe, however, there is a confirmation of a 7 mm foreign body on the plantar surface superficially of the foot. The patient denies any pain. He continues to eat well and is walking around better today. Infectious disease switched him from IV antibiotics to oral clindamycin. Review of Systems Review of Systems: All systems reviewed & are unremarkable except as noted in HPI & below Physical Exam Physical Exam: CONSTITUTIONAL: WNWD, vitals as above, generally well- appearing EYES: normal conjunctivae, no scleral icterus ENT: MMM RESPIRATORY: clear to auscultation bilaterally, no crackles, rales or wheezes, normal respiratory effort CARDIOVASCULAR: regular rate and rhythm, S1 and 2 heard without murmurs, gallops or rubs, no JVD, no peripheral edema GASTROINTESTINAL: normal bowel sounds, soft, nontender, nondistended MUSCULOSKELETAL: RLE weakness compared to left which is chronic s/p stroke, wound on R great toe, wrapped with only minimal bloody drainage on the bandage. Plantar aspect of his R foot examined with no TTP anywhere and no erythema or swelling. SKIN: warm and dry NEUROLOGIC: CN 2-12 grossly intact, normal cognition PSYCHIATRIC: alert cooperative and oriented to person, place and time. Results & Data Vital Signs (Past 12 Hours) Vital Signs Temp Pulse Resp BP Pulse Ox 12/22/18 15:04 37 C 73 20 145/70 H 96 12/22/18 08:20 36.8 C 71 18 117/64 96 Laboratory Results Short CBC 12/22/18 Range/Units 07:16 WBC 4.97 (4.8-10.8) K/uL Hgb 11.7 L (14.0-18.0) g/dL Hct 34.6 L (42-52) % Plt Count 187 (130-400) K/uL BMP 12/22/18 07:16 Sodium 137 Potassium 3.8 Chloride 105 Carbon Dioxide 26 BUN 11 Creatinine 0.87 Glucose 197 H Calcium 9.0 Cardiac Enzymes 12/22/18 Range/Units 07:16 Total Creatine Kinase 74 (39-308) U/L Medications Administered Current Inpatient Medications Acetaminophen (Tylenol) 650 mg PO Q4H PRN PRN Reason: Pain or Fever Stop: 01/18/19 00:35 Last Admin: 12/21/18 00:21 Dose: 650 mg Documented by: Aspirin (Ecotrin Ectab) 162 mg PO DAILY [facility] Stop: 01/18/19 08:59 Last Admin: 12/22/18 08:32 Dose: 162 mg Documented by: Baclofen (Lioresal) 5 mg PO DAILY [facility] Stop: 01/18/19 08:59 Last Admin: 12/22/18 08:30 Dose: 5 mg Documented by: Carvedilol (Coreg) 12.5 mg PO BID [facility] Stop: 01/18/19 00:35 Last Admin: 12/22/18 08:31 Dose: 12.5 mg Documented by: Clopidogrel Bisulfate (Plavix) 75 mg PO DAILY [facility] Stop: 01/19/19 08:59 Last Admin: 12/22/18 08:32 Dose: 75 mg Documented by: Dextrose (Dextrose 50%) 25 - 50 ml IV UD PRN; Protocol PRN Reason: Hypoglycemia Protocol Stop: 01/18/19 00:35 Gadobutrol (Gadavist 65ml) 9.5 ml IV ONCE PRN PRN Reason: Interaction Checking Stop: 12/25/18 23:10 Last Admin: 12/21/18 23:00 Dose: 9.5 ml Documented by: Glucagon (Glucagen) 1 mg SQ UD PRN; Protocol PRN Reason: Hypoglycemia Protocol Stop: 01/18/19 00:35 Glucose (Dex4 Glucose) 4 - 8 tabs PO UD PRN; Protocol PRN Reason: Hypoglycemia Protocol Stop: 01/18/19 00:35 Glucose (Glucose 40%) 15 - 30 gm PO UD PRN; Protocol PRN Reason: Hypoglycemia Protocol Stop: 01/18/19 00:35 Daptomycin 425 mg/ Syringe 8.5 mls @ 4.25 mls/min IV Q24H [facility]; Protocol Stop: 01/29/19 22:29 Last Admin: 12/21/18 23:59 Dose: 4.25 mls/min Documented by: Piperacillin Sod/Tazobactam Sod (Zosyn) 4.5 gm in 120 mls @ 30 mls/hr IV Q8H [facility]; Protocol Stop: 01/30/19 01:59 Last Infusion: 12/22/18 15:54 Dose: Infused Documented by: Promethazine HCl 12.5 mg/ (Sodium Chloride) 50.5 mls @ 202 mls/hr IV Q6H PRN PRN Reason: Nausea And Vomiting Stop: 01/18/19 00:35 Heparin Sodium/Dextrose (Heparin Sodium/Dextrose) 25,000 units in 500 mls @ 30 mls/hr IV .[id number] [facility]; Protocol Stop: 01/18/19 02:44 Last Admin: 12/22/18 08:59 Dose: 1,500 units/hr, 30 mls/hr Documented by: Insulin Aspart (Novolog Flexpen) 0 units SC ACHS [facility]; Protocol Stop: 01/18/19 00:35 Last Admin: 12/22/18 13:57 Dose: 25 units Documented by: Insulin Aspart (Novolog Flexpen) 0 units SC 0200 ONE; Protocol Stop: 12/23/18 02:01 Insulin Glargine (Lantus Solostar Pen) 0 units SQ BID [facility]; Protocol Stop: 01/21/19 08:59 Last Admin: 12/22/18 08:33 Dose: 300 units Documented by: Lisinopril (Zestril) 40 mg PO DAILY [facility] Stop: 01/18/19 08:59 Last Admin: 12/22/18 08:32 Dose: 40 mg Documented by: Miscellaneous (Carbohydrates For Hypoglycemia) 15 - 30 gm PO UD PRN PRN Reason: Hypoglycemia Treatment Stop: 01/18/19 00:35 Miscellaneous Information (Consult) 1 ea N/A UD PRN PRN Reason: Consult Stop: 01/17/19 22:37 Miscellaneous Information (Consult) 1 ea N/A UD PRN PRN Reason: Consult Stop: 01/17/19 23:09 Miscellaneous Information (Consult Glycemic Management Pharmacy) 1 ea N/A UD PRN PRN Reason: Consult Stop: 01/19/19 22:22 Morphine Sulfate (Morphine Sulfate) 2 mg IV Q4H PRN PRN Reason: Pain Stop: 01/02/19 00:35 Nitroglycerin (Nitrostat) 0.4 mg SL UD PRN PRN Reason: Chest Pain Stop: 01/18/19 00:35 Tramadol HCl (Ultram) 25 mg PO Q4H PRN PRN Reason: Pain Stop: 01/18/19 00:35 Warfarin Sodium (Coumadin) 7.5 mg PO DAILY@1600 [facility] Stop: 01/20/19 15:59 Last Admin: 12/21/18 16:44 Dose: 7.5 mg Documented by:
[2018-12-22] MEDS: CLINDAMYCIN HCL 150 MG CAP PO SCH ×2 (18:48→21:56)
--- NOTE | 2018-12-23 01:37 | Consultation Report ---
DATE OF CONSULTATION: 12/22/2018 HISTORY OF PRESENT ILLNESS: The patient is seen in followup for initial consultation made by my PA, Lance Taylor on 12/19/2018. The patient was sent to the hospital for chronic osteomyelitis of the right great toe. He has been under the care of Dr. Palmer at the wound care center and under the care of Dr. Micky Arevalo for infectious disease. The patient was having failure to make any progress and has had chronic ulceration and exposed bone with a dystrophic nail on the right great toe for several months. He has had a recurrence of sepsis and he then presented to the Emergency Department for admission. He was admitted to the hospital and placed on I.V. antibiotics. Multiple studies have been completed with evidence of chronic osteomyelitis of the distal phalanx of the right great toe. The patient is unwilling to consider having amputation of the right great toe at this time. After a lengthy discussion with the patient, he would like to continue with antibiotic treatment and wound care therapy. PHYSICAL EXAMINATION: EXTREMITIES: Demonstrates a thickened dystrophic right great toe with exposed distal phalanx bone and erosion of soft tissue at the distal tip of the right great toe consistent with chronic osteomyelitis. There is foul odor to the great toe and there are also necrotic features supporting chronic osteomyelitis. He has erythema proximal to the areas of necrotic tissue extending to the IP joint of the right great toe. There is no streaking; however, appears inflamed. Minor hypertrophic callous around the circumference of the wound. Poor dorsalis pedis and posterior tibial pulses. Capillary refill is approximately 3 seconds. Direct palpation over the area of concern with possible foreign body elicits no discomfort. There is no fluctuance. There is no erythema. There is no tenderness to palpation. There is no palpable foreign body. There is no streaking or redness from the plantar aspect at the area noted by the MRI to be possibility of foreign body. Radiographs, MRI and blood work reviewed. IMPRESSION: Right great toe osteomyelitis involving the distal phalanx, dystrophy of the right great toenail plate, foreign body, plantar aspect of the right foot, nonreactive, most likely not source for sepsis, peripheral vascular disease and chronic osteomyelitis. RECOMMENDATIONS: At this time, the patient is unwilling to consider amputation of the right great toe distal phalanx which would be the most definitive management of this issue. He would prefer to continue with antibiotics and wound care treatment. It is my opinion that the recurrent sepsis is coming from the osteomyelitis of the right great toe and I shared this with the patient. He will consider his options and requests a consultation with orthopedics once again if he decides to move ahead with definitive care and management of the chronic osteomyelitis. At this time, we will ask the patient to follow up as an outpatient should he show desire. No further consultation at this time is necessary. Thank you for the opportunity to consult in the care of this patient. FREIDA
[2018-12-23] MEDS ORDERED: INSULIN ASPART 100 UNITS/ML 3 ML PEN SC ONE (02:00)
[2018-12-23] MEDS: Heparin Adult STANDARD Wt-Based Dextrose 5% 25,000 units/500 mL IV SCH (02:06)
[2018-12-23] MEDS: CLINDAMYCIN HCL 150 MG CAP PO SCH ×2 (05:57→13:08)
[2018-12-23 06:25] LABS: Hematocrit (blood only) 35.4 % (42-52); Hemoglobin 11.7 g/dL (14.0-18.0); Mean Corpuscular Hgb Conc 33.1 g/dL (32-36); Mean Corpuscular Volume 80.1 fL (80-100); Mean Platelet Volume 10.1 fL (7.4-10.4); Platelet Count 201 K/uL (130-400); RDW Coefficient of Variation 14.3 % (11.5-14.5); Red Blood Count 4.42 M/uL (4.7-6.1); White Blood Count 4.95 K/uL (4.8-10.8)
[2018-12-23 06:32] LABS: INR 1.1 (0.9-1.1); Prothrombin Time 11.6 Seconds (9.0-12.0)
[2018-12-23 06:59] LABS: BUN Creatinine Ratio 16.9 (10-20); Calcium 8.8 mg/dl (8.5-10.1); Creatinine Clr Calc Pharmacy 127.2 ml/min; Est GFR (African American) 118.2; Potassium 3.8 mmol/L (3.5-5.1)
[2018-12-23 07:09] LABS: Partial Thromboplastin Ratio 2.2
[2018-12-23 07:14] LABS: Partial Thromboplastin Time 59.6 Seconds (21.0-31.0)
[2018-12-23] MEDS: INSULIN ASPART 100 UNITS/ML 3 ML PEN SC SCH ×2 (08:15→12:11)
[2018-12-23] MEDS: CLOPIDOGREL BISULFATE 75 MG TAB PO SCH (08:18)
[2018-12-23] MEDS: INSULIN GLARGINE SOLOSTAR 100 UNITS/ML 3 ML PEN SQ SCH (08:18)
[2018-12-23] MEDS: CARVEDILOL 12.5 MG TAB PO SCH (08:18)
[2018-12-23] MEDS: BACLOFEN 10 MG TAB PO SCH (08:18)
[2018-12-23] MEDS: ASPIRIN 81 MG ECTAB PO SCH (08:18)
[2018-12-23] MEDS: LISINOPRIL 40 MG TAB PO SCH (08:18)
--- NOTE | 2018-12-23 10:48 | Discharge Summary ---
Date of Service December 23, 2018 Admission HPI Per Admitting Provider History obtained from patient, family, and records. Medical history significant for CAD status post CABG, stent, history CVA on Coumadin for presumptive Aspirin/Plavix failure, history PVD status post recent angioplasty , aortic stenosis, hypertension, DM 2, insulin requiring, chronic anemia baseline hemoglobin of 13, chronic osteomyelitis right great toe ongoing clindamycin Rx, past tobacco abuse. Recent confinement September 2018 for possible sepsis. This afternoon, patient started having some trouble walking, increased weakness on weaker right leg. No chest pain, no S OB no cough. Patient felt warm. No unusual pain/drainage from chronic right great toe wound. No abdominal pain, diarrhea, dysuria symptoms. At the ER, patient received IV Zosyn for sepsis. RLE weakness currently improved as per patient. 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 Admission Exam Per Admitting Provider GENERAL: Comfortable, slightly anxious, no respiratory distress SKIN: Pallor, warm HEENT: Bespectacled, pale palpebral conjunctivae, no ptosis, dry buccal mucosa NECK : Supple, no tenderness CHEST : CTA, no tenderness HEART : Tachycardic, systolic murmur ABDOMEN: Some distention, nontender EXTREMITIES : Ulceration on right great toe with exposed bone and subcutaneous tissue, no gross drainage noted, no other conspicuous deformities noted NEUROLOGIC : Coherent, no facial asymmetry, MMT RLE 4/5 (chronic) Principal Diagnosis Sepsis 2/2 chronic right toe osteomyelitis foreign body presence in R foot Discharge Data Allergies Allergy/AdvReac Type Severity Reaction Status Date / Time No Known Allergies Allergy Verified 12/14/18 10:08 Consultations 12/18/18 22:01 ED Decision to Admit Stat 12/19/18 00:36 Consult Case Management - Discharge Planning Routine Consult Infectious Diseases Routine Consult Wound Care Provider Routine 12/19/18 07:21 Consult Orthopedic Surgery Routine 12/19/18 08:05 Consult Cardiology Routine Ordered Studies 12/18/18 19:41 CT head/brain wo con Stat 12/21/18 14:43 MR foot RT wo/w con Routine Hospital Course (1) Osteomyelitis of great toe of right foot: Was on chronic clindamycin as outpatient and was doing well. Sepsis brought him in the hospital. IV Dapto/Zosyn begun for a few days and changed back to oral clindamycin once resuscitated and white blood cell count normalized. Pt currently desires continued conservative measures to treat osteomyelitis. Ortho evaluated him and recommended toe amputation, however, he is not agreeable to that at this time. MRI repeat revealed no progression of th e osteomyelitis since August MRI but did reveal presence of a small linear 7mm foreign body in the plantar surface of the foot. The patient didn't remember any trauma that might have caused this, and ultimately it was not thought to be causing him a problem and wouldn't need to be removed at this time. There was no superficial erythema or swelling of the foot in this area on exam, and the patient was not having pain with weight-bearing in this area. (2) Sepsis: resuscitated, presumed to be 2/2 great toe osteomyelitis. (3) Coronary artery disease: chronic, stable. Cont Plavix and ASA through any surgery as a recommendation from Cardiology. Cont Coreg and lisinopril. (4) DMII (diabetes mellitus, type 2): Was using basal bolus insulin while hospitalized and transitioned back to Lantus and metformin per home regimen at discharge. (5) H/O: CVA (cerebrovascular accident): on heparin drip while hospitalized in preparation for possible procedure, but he was transitioned back to coumadin when he declined surgery. INR was subtherapeutic at time of discharge, so he was given Lovenox injections for bridge. Close follow-up of INR recommended over the next few days. (6) Aortic stenosis, severe: Cont cardiology evaluations as outpatient. It is recommended that the osteomyelitis be completely treated prior to any valve surgery in the future. At the time of discharge a [id number] examination was performed revealing a 3/6 ULISES that was chronic and unchanged, clear lungs to auscultation bilaterally, a soft nontender and nondistended abdomen and an unchanged open wound that was nondraining on his right great toe. As above, the plantar aspect of his right foot was unremarkable including no TTP, erythema or swelling. He was mentating and ambulating at baseline and was tolerating PO. He was hemodynamically stable and afebrile and was tolerating PO. He was sent home in stable condition with close PCP follow-up recommended. Total Time Total Time Spent Total Time Spent (In Minutes): 60 Total Time Includes: Examination of the Patient, Discharge Planning, Medication Reconciliation and Communication With Other Providers Discharge Plan Discharge Items Patient Disposition: Home - Self-Care Reason For Visit: SEPSIS Discharge Diagnosis: Sepsis 2/2 chronic right toe osteomyelitis foreign body presence in R foot Condition: Good Discharge Goals: Improve disease control Activity: Resume your previous activity Non-emergency contact: Primary Care Provider Call non-emergency contact if: you have any medication questions, your symptoms worsen, your pain is not controlled, your pain is worsening, your pain is unusual for you, your pain is concerning for you and you have a fever Follow-up/Referrals: Dereck Zaman, [Primary Care Provider] - Diet: Carb Consistent or DM2 and Heart Healthy Addtl Provider Instructions: Please take all medications per discharge list below. You are being given CLINDAMYCIN which is an antibiotic to treat your foot infection. Please keep in mind that if your symptoms return, this may not be controlling your infection adequately, and it would be recommended to seek immediate medical attention. Please follow-up with [facility]-Dr. Micky Arevalo, as instructed. Please follow-up with the WOUND CARE clinic as instructed. It is recommended that you followup with your primary care physician within one week of discharge. Someone from our staff will contact you after the weekend to set this up. It is recommended that you see the ANTICOAGULATION CLINIC on Tuesday or Tuesday of next week for a recheck of your INR. You will be sent home on LOVENOX injections to be given subcutaneously twice daily until your INR is again therapeutic between 2 and 3. You should consistently take the higher 7.5mg dose every day until INR can be rechecked early next week. It was a pleasure taking care of you! Please call if you have any questions or problems. You can reach a [facility] hospitalist on duty at [facility] 24 hours a day by calling [phone]. Take care of yourself. Leda George, [facility] Hospitalist Prescriptions: New warfarin [Coumadin] 7.5 mg Tablet 7.5 mg PO DAILY@1600 Qty: 30 RF: 1 clindamycin HCl 300 mg capsule 300 mg PO TID Qty: 42 RF: 1 enoxaparin [Lovenox] 100 mg/mL syringe 100 mg SQ Q12H Qty: 10 RF: 1 Continued carvedilol 12.5 mg tablet 12.5 mg PO BID RF: 0 insulin glargine [Lantus U-100 Insulin] 100 unit/mL solution 30 units SQ AMPM RF: 0 clopidogrel [Plavix] 75 mg tablet 75 mg PO DAILY RF: 0 atorvastatin [Lipitor] 80 mg tablet 80 mg PO QPM RF: 0 lisinopril 40 mg tablet 40 mg PO DAILY RF: 0 metformin 1,000 mg tablet 1,000 mg PO BID RF: 0 baclofen 5 mg tablet 5 mg PO DAILY RF: 0 aspirin [Adult Low Dose Aspirin] 81 mg tablet,delayed release (DR/EC) 162 mg PO DAILY RF: 0 Novolog U-100 Insulin aspart 100 unit/mL Solution 14 unit SUBCUT ACHS RF: 0 Discontinued warfarin 5 mg tablet 7.5 mg PO 5XWK RF: 0 warfarin 5 mg tablet 5 mg PO 2XWK RF: 0 Stand-Alone Forms: [facility] Discharge Orders: Discharge Order (Routine); Ordered 12/23/18 Ordered By: Leda George Admission Data Admit Date/Time: 12/18/18 23:13 Attending Provider: Leda George Admit Provider: Piter Owens Primary Care Provider: Dereck Zaman Other Providers: Piter Owens ; Micky Arevalo ; Meliton Huff Jason L. ; Lance Taylor ; Morris Kaur Service: Telemetry Medical Other Interventions: Discharge Summary Assessment (RN) Last Done: 12/23/18 11:30 DC Date/Time DO NOT enter until pt leaves facility: 12/23/18 13:18
[2018-12-23] MEDS ORDERED: ENOXAPARIN 100 MG/1ML SYR SQ ONE (12:00)
== END 2018-12-23 13:18 | disposition home or self-care (01) | DRG 872 ==
LOC: ED 19:08 → SUATTDRO 23:13 → 2W 23:13
DX: Z98.62 Peripheral vascular angioplasty status; E11.69 Type 2 diabetes mellitus with other specified complication; Z95.1 Presence of aortocoronary bypass graft; Z86.19 Personal history of other infectious and parasitic diseases; Z82.49 Family history of ischemic heart disease and other diseases of the circulatory system; Z79.4 Long term (current) use of insulin; Z87.891 Personal history of nicotine dependence; Z82.3 Family history of stroke; I35.0 Nonrheumatic aortic (valve) stenosis; I25.2 Old myocardial infarction; Z79.899 Other long term (current) drug therapy; M86.671 Other chronic osteomyelitis, right ankle and foot; I10 Essential (primary) hypertension; Z83.3 Family history of diabetes mellitus; A41.9 Sepsis, unspecified organism; Z79.01 Long term (current) use of anticoagulants; E11.51 Type 2 diabetes mellitus with diabetic peripheral angiopathy without gangrene; E78.5 Hyperlipidemia, unspecified; Z79.82 Long term (current) use of aspirin; Z79.2 Long term (current) use of antibiotics; Z95.5 Presence of coronary angioplasty implant and graft; I25.10 Atherosclerotic heart disease of native coronary artery without angina pectoris; Z86.73 Personal history of transient ischemic attack (TIA), and cerebral infarction without residual deficits; D63.8 Anemia in other chronic diseases classified elsewhere

== ENCOUNTER 2019-08-09 11:02 | Observation (INO) ==
[2019-08-09 12:39] LABS: Basophils # (auto) 0.02 K/uL (0-0.2); Basophils % (auto) 0.2 %; Eosinophils # (auto) 0.18 K/uL (0-0.5); Eosinophils % (auto) 2.1 %; Hematocrit (blood only) 44.1 % (42-52); Hemoglobin 14.4 g/dL (14.0-18.0); Immature Granulocytes # (auto) 0.01 K/uL (0.00-0.02); Immature Granulocytes % (auto) 0.1 %; Lymphocytes # (auto) 1.88 K/uL (1.2-3.4); Lymphocytes % (auto) 22.4 %; Mean Corpuscular Hemoglobin 26.8 pg (25-34); Mean Corpuscular Hgb Conc 32.7 g/dL (32-36); Mean Corpuscular Volume 82.1 fL (80-100); Mean Platelet Volume 10.5 fL (7.4-10.4); Monocytes # (auto) 0.58 K/uL (0.11-0.59); Monocytes % (auto) 6.9 %; Neutrophils # (auto) 5.74 K/uL (1.4-6.5); Neutrophils % (auto) 68.3 %; Platelet Count 250 K/uL (130-400); RDW Coefficient of Variation 14.4 % (11.5-14.5); RDW Standard Deviation 42.9 fL (36.4-46.3); Red Blood Count 5.37 M/uL (4.7-6.1); White Blood Count 8.41 K/uL (4.8-10.8)
[2019-08-09] MEDS: SODIUM CHLORIDE 0.9% 500 ML IV SCH ×2 (12:41→19:10)
[2019-08-09 12:57] LABS: Albumin Level 3.5 gm/dl (3.4-5.0); Aspartate Aminotransferase 15 U/L (15-37); BUN Creatinine Ratio 27.6 (10-20); Blood Urea Nitrogen 25 mg/dl (7-18); Carbon Dioxide 27 mmol/L (21-32); Chloride 108 mmol/L (98-107); Est GFR (Non-African American) 92.3; Glucose 189 mg/dl (70-99); Lipase 56 U/L (73-393); Magnesium 1.7 mg/dl (1.8-2.4); Potassium 4.1 mmol/L (3.5-5.1); Sodium 140 mmol/L (136-145)
[2019-08-09 13:00] LABS: INR 1.3 (0.9-1.1); Prothrombin Time 13.1 Seconds (9.0-12.0)
--- NOTE | 2019-08-09 13:07 | CT Scan Report ---
CT SCAN OF THE BRAIN WITHOUT IV CONTRAST CLINICAL HISTORY: Change in mental status. COMPARISON STUDY: CT of the brain dated 12/18/2018. TECHNIQUE: Unenhanced axial CT scan of the brain is performed from the vertex to the skull base. A do se lowering technique was utilized adhering to the principles of ALARA. CT DOSE: 614.27 mGy.cm FINDINGS: Brain parenchyma: There are age-related involutional changes noting moderate to advanced subcortical and periventricular microangiopathic change. There is no hemorrhage, mass effect, or evidence of acu te territorial ischemia by CT criteria. There are chronic lacunar infarcts in the periventricular whi te matter, the left caudate head, and the left thalamus. Rose-white matter differentiation is preserv ed. No extra-axial fluid collection is seen. Ventricles, sulci, cisterns: Prominent secondary to involutional change. Intracranial vasculature: There is atherosclerotic calcification of the cavernous carotid and vertebr al arteries. Calvarium: Unremarkable. Sinuses and mastoids: The visualized paranasal sinuses are clear. The mastoid air cells are well pneu matized. Orbits: The bony orbits are grossly intact. IMPRESSION: There is no hemorrhage, mass effect, or evidence of acute territorial ischemia by CT jorget lynette. ACT 112: Negative or not required by law. Results electronically sent 08/09/2019 1:06 PM to: Annabelle England DO Electronically signed by: Donny Fernando M.D. 08/09/2019 1:06 PM
[2019-08-09 13:11] LABS: Alanine Aminotransferase 29 U/L (12-78); Albumin Globulin Ratio 0.8 (0.9-2); Alkaline Phosphatase 63 U/L (45-117); Bilirubin,Total 0.3 mg/dl (0.2-1); Globulin 4.3 gm/dl (2.5-4.0); NT Pro B Type Natriuretic Pept 793 pg/ml (0-900); Total Protein 7.8 gm/dl (6.4-8.2); Troponin I < 0.015 ng/ml (0-0.045)
[2019-08-09] MEDS ORDERED: MAGNESIUM SULFATE / D5W 1 GM/100 ML BAG IV ONE (13:19)
[2019-08-09] MEDS ORDERED: LABETALOL HCL IV 5 MG/ML 20ML IV STA (14:40)
[2019-08-09] MEDS ORDERED: Heparin IV Low Dose *NO* Bolus IV ONE (14:41)
--- NOTE | 2019-08-09 14:55 | History & Physical Report ---
Date of Service August 09, 2019 Assessment & Plan (1) Stroke-like symptom: (2) H/O: CVA (cerebrovascular accident): Pt is 59 y/o M with PMH CAD s/p CABG x 3, insulin dependent DM II, severe aortic stenosis, CVA with right hemiparesis, right foot drop, bilateral carotid stenosis, HTN, HLD, SMA stenosis, right great toe ulcer and osteomyelitis presented to ER with complaint of confusion and garbled speech episode today after finishing PT. Tried to check BSG however unable to and ate chocolate. Symptoms lasted approx 15 minutes and resolved. In ER afebrile, P: 88, R: 18, BP: 156/88 up to 206/, 99% RA. No leukocytosis, INR: 1.3, troponin negative, EKG without acute changes CT head: No acute ischemia DDX: TIA, stroke, hypoglycemia -Upon ER arrival patient with normal speech and is at baseline with chronic right-sided weakness -Patient with elevated BP will give dose of IV labetalol -Continue aspirin, Plavix, statin -Start heparin IV since INR subtherapeutic -Coumadin 7.5 mg daily to optimize INR into therapeutic range -Monitor INR -lipid panel am -MRI without contrast -U/S carotids -Had recent echo 04/2019: EF: 60-60%, borderline severe aortic stenosis; will hold on further echo pending neurology recommendations -aspiration precautions -PT/OT consult -allow permissive HTN, labetalol SBP>200 or DBP>100 in 1st 24 hrs -neurology consult (3) HTN (hypertension): BP: 156/88 up to / -Dose labetalol 10mg IV now -Allow permissive HTN in case of acute CVA -Continue carvedilol, lisinopril (4) Diabetic ulcer of foot associated with diabetes mellitus due to underlying condition, with necrosis of bone: H/O Right great toe ulcer and osteomyelitis. Following with Ortho and infectious disease at [facility]. Much improvement with healed ulcer -Continue clindamycin, cefdinir (5) Hypomagnesemia: Magnesium: 1.7 -In ER given magnesium 1 g IV -Monitor (6) Type 2 diabetes mellitus: A1c: 7.3 on 07/10/2019 -Hold metformin, home insulin -Basal bolus insulin per protocol (7) Coronary artery disease: CAD S/P CABG No CP or SOB -Continue aspirin, Plavix, atorvastatin, carvedilol DVT Prophylaxis -On Coumadin, currently on heparin IV until INR therapeutic Full Code as per discussion with pt Follows with Dr Zaman for routine care Pt was seen and care coordinated with Dr Carr. See addendum History of Present Illness Chief Complaint: Confusion Primary Care Provider: Dereck Zaman, DO Pt is 59 y/o M with PMH CAD s/p CABG x 3, insulin dependent DM II, severe aortic stenosis, CVA with right hemiparesis, right foot drop, bilateral carotid stenosis, HTN, HLD, SMA stenosis, right great toe ulcer and osteomyelitis presented to ER with complaint of confusion episode today. Patient finished PT today which she is doing secondary to right-sided weakness from prior stroke. States after PT was a little sluggish. reports was driving home when she noticed patient had some confusion and garbled speech. She arrived home quickly and attempted to use home glucometer to measure BSG however is unable to get it to work so gave patient chocolate to eat. Reports no facial drooping or difficulty swallowing. Reports symptoms lasted approximately 15 minutes and upon ER arrival patient is back to baseline. Denies any noted increased right- sided weakness from baseline or other extremity weakness, dizziness, chest pain, shortness of breath. Denies fever/chills, diaphoresis, N/V/D/C, ORELLANA, dizziness, syncope, vision changes, neck pain, orthopnea, palpitations, cough, sore throat, choking, otalgia, rhinorrhea, abdominal pain, paresthesias, extremity edema, rashes, urinary symptoms. Allergies Allergy/AdvReac Type Severity Reaction Status Date / Time No Known Allergies Allergy Verified 08/09/19 12:37 Home Medications Home Medications Medication Instructions Recorded Confirmed Type atorvastatin 80 mg tablet 80 mg PO QPM 07/10/18 08/09/19 History baclofen 5 mg tablet 5 mg PO QAM tab 07/10/18 08/09/19 History carvedilol 12.5 mg tablet 12.5 mg PO BID 07/10/18 08/09/19 History clopidogrel 75 mg tablet 75 mg PO QAM 07/10/18 08/09/19 History insulin glargine 100 unit/mL 30 units SQ AMPM ml 07/10/18 08/09/19 History subcutaneous solution lisinopril 40 mg tablet 40 mg PO QAM 07/10/18 08/09/19 History metformin 1,000 mg tablet 1,000 mg PO BID 07/10/18 08/09/19 History insulin aspart U-100 [Novolog 14 unit SUBCUT ACHS 09/08/18 08/09/19 History U-100 Insulin aspart] clindamycin HCl 300 mg PO TID #42 cap 12/23/18 08/09/19 Rx cefdinir 300 mg capsule 300 mg PO BID #60 cap 04/27/19 08/09/19 Rx aspirin 162 mg PO DAILY 08/09/19 08/09/19 History nitroglycerin 0.4 mg SUBLINGUAL UD 08/09/19 08/09/19 History warfarin [Coumadin] 7.5 mg PO QAM 08/09/19 08/09/19 History Past Med/Surg History Medical History Aortic valve stenosis (Chronic) CAD (coronary artery disease) (Chronic) Carotid stenosis (Chronic) Dyslipidemia (Chronic) Hemiplegia affecting right dominant side (Chronic) HTN (hypertension) (Chronic) Monoplegia affecting right dominant side (Chronic) Obesity (Chronic) Proliferative diabetic retinopathy (Chronic) Retinal edema (Chronic) Right foot drop (Chronic) Status post cerebrovascular accident (Chronic) Status post myocardial infarction (Chronic) Superior mesenteric artery stenosis (Chronic) Type 2 diabetes mellitus (Chronic) Surgical History Hx of vitrectomy (Acute) S/P angioplasty with stent (Chronic) S/P CABG x 3 (Chronic) S/P PTCA (percutaneous transluminal coronary angioplasty) (Chronic) Family History Father Heart disease Social History Preferred Language: Nepali Communication Ability: Effective Visual Impairment: No Limitations Hearing Ability: Normal Forensic Computer Examiner Required: No Beliefs That Will Affect Care: None marital status: Current Living Situation: Spouse Current Living Situation Comment: lives with current occupational status: disabled Feels Safe at Home: Yes Smoking Status: Former smoker Second Hand Exposure: No ; Hx Alcohol Use: No Hx Substance Use: No Review of Systems Review of Systems: All systems reviewed & are unremarkable except as noted in HPI & below Physical Exam Physical Exam: General: no acute distress, WDWN Head: normocephalic, atraumatic Eyes: PERRL, EOM's intact, conjunctiva non-injected, anicteric ENT: normal inspection external ears, nose, mucous membranes moist Neck: supple, trachea midline, non-tender Lungs: clear, no respiratory distress, no wheezing/rhonchi/rales CV: RRR, systolic murmur, no pretibial edema Abd: normal BS, soft, non-tender Ext: no cyanosis, no calf tenderness Neuro: A&O x 3, chronic right arm and leg weakness, chronic right foot drop, left upper and lower extremity with good strength, facial sensation is intact and symmetric, The face is strong and symmetric, Hearing grossly intact, Soft palate elevates symmetrically, no dysarthria, Shoulder shrug intact, Tongue is midline, normal movement, no fasciculations normal affect Skin: warm, dry; right great toe with thickened toenail, distal toe with thickened callus and healed ulcer, no surrounding erythema, no discharge Results & Data Vital Signs (Past 12 Hours) Vital Signs Temp Pulse Pulse Resp BP BP Pulse Ox 08/09/19 13:03 75 18 190/106 H 97 08/09/19 11:06 36.8 C 88 18 156/88 H 99 Laboratory Results Short CBC 08/09/19 Range/Units 12:27 WBC 8.41 (4.8-10.8) K/uL Hgb 14.4 (14.0-18.0) g/dL Hct 44.1 (42-52) % Plt Count 250 (130-400) K/uL BMP 08/09/19 12:27 Sodium 140 Potassium 4.1 Chloride 108 H Carbon Dioxide 27 BUN 25 H Creatinine 0.89 Glucose 189 H Calcium 9.0 Cardiac Enzymes 08/09/19 Range/Units 12:27 Troponin I < 0.015 (0-0.045) ng/ml Liver Function 08/09/19 Range/Units 12:27 Total Bilirubin 0.3 (0.2-1) mg/dl AST 15 (15-37) U/L ALT 29 (12-78) U/L Alkaline Phosphatase 63 (45-117) U/L Albumin 3.5 (3.4-5.0) gm/dl Diagnostic Findings CT HEAD: IMPRESSION: There is no hemorrhage, mass effect, or evidence of acute territorial ischemia by CT criteria. ECG Rate (beats per minute): 81 Rhythm: sinus rhythm Findings: + Q waves (Inferior) Code Status & VTE Plan VTE Prophylaxis Plan VTE Prophylaxis will be ordered: Yes Supervising Physician Co-Signing Physician Notes Attending addendum: The patient was seen and examined in emergency room in presence of the He has a history of stroke and was getting physical therapy Number home did not feel right, he could not find the words that he wanted to say with some confusion At the emergency room all of his symptoms were resolved On examination Lying in bed without any apparent distress His blood pressure noted to be very high at presentation which went up to systolic 214 Chestclear to auscultate bilaterally Heart-S1-S2 with 2-3 over systolic murmur over precordium and aortic area Abdomen-benign Extremities-trace edema bilaterally, more on the right SINGLE END SEWER-alert, awake and oriented x3. Has right hemiparesis Admission labs and imaging studies reviewed Presented with TIA symptoms which are resolved and noted to have INR of 1.3 Without any symptoms of hypoglycemia and no evidence of other associated symptoms His initial imaging studies were unremarkable He will have MRI and neuro consult will be asked for Agree with assessment and plan as outlined above by ROSIBEL Evans Dr
[2019-08-09] MEDS ORDERED: HEPARIN 25000 UNIT/500 ML D5W IV ONE (14:57)
[2019-08-09] MEDS: HEPARIN SODIUM/DEXTROSE 25,000 UNITS/500 ML BAG IV SCH (14:59)
[2019-08-09] MEDS ORDERED: GLUCAGON FOR INJ 1 MG VIAL SQ PRN (16:34)
[2019-08-09] MEDS ORDERED: DEXTROSE 50% 50 ML SYRINGE IV PRN (16:34)
[2019-08-09] MEDS ORDERED: ACETAMINOPHEN 325 MG TAB PO PRN (16:34)
[2019-08-09] MEDS ORDERED: GLUCOSE 40% GEL 15 GM TUBE PO PRN (16:34)
[2019-08-09] MEDS ORDERED: PHARMACIST DISCHARGE MED REC CONSULT PRN (16:34)
[2019-08-09] MEDS ORDERED: GLUCOSE 10 TABS/TUBE PO PRN (16:34)
[2019-08-09] MEDS ORDERED: CARBOHYDRATES FOR HYPOGLYCEMIA PO PRN (16:34)
[2019-08-09] MEDS ORDERED: LABETALOL HCL IV 5 MG/ML 20ML IV PRN (17:55)
[2019-08-09] MEDS: INSULIN ASPART 100 UNITS/ML 3 ML PEN SC SCH ×2 (18:08→22:19)
[2019-08-09] MEDS: WARFARIN SOD 7.5 MG TAB PO SCH (18:09)
[2019-08-09] MEDS: LORazepam 0.5 MG/1 ML VIAL IV STA ×2 (20:06→21:22)
[2019-08-09] MEDS ORDERED: ATORVASTATIN 40 MG TAB PO SCH (21:00)
--- NOTE | 2019-08-09 21:28 | Ultrasound Report ---
US carotid doppler BI CLINICAL HISTORY: 59 years-old Male with TIA symptoms; h/o mild stenosis. Acute strokelike symptoms COMPARISON: Head CT of same day TECHNIQUE: Multiple real time sonographic images of the carotid bifurcations were obtained assessing duarte scale, color Doppler and spectral wave form appearance FINDINGS: RIGHT CAROTID: The peak systolic velocity within the right ICA is measured at74 cm/sec. The end alexia stolic velocity measured 13 cm/sec. The ICA to CCA ratio measured 1.25 which correlates with a steno sis of 0-50%. Moderate mostly calcified plaque of the right carotid bulb and proximal right ICA. LEFT CAROTID: The peak systolic velocity within the left ICA is measured at72 cm/sec. The end diast olic velocity measured 13 cm/sec. The ICA to CCA ratio measured 0.92 which correlates with a stenosis of 0-50%. Moderate mostly calcified plaque of the left carotid bulb and proximal left ICA. There is normal antegrade vertebral flow bilaterally. Blood pressures were not obtained secondary to patient's upper extremity IV catheter. IMPRESSION: 1. No hemodynamically significant stenosis. 2. Normal antegrade vertebral flow bilaterally. ACT 112: Negative or not required by law. The above report was generated using voice recognition software. It may contain grammatical, syntax o r spelling errors. Results electronically sent 08/09/2019 9:27 PM to: Jenna Box PA-C Electronically signed by: Antonino Gr M.D. 08/09/2019 9:27 PM
--- NOTE | 2019-08-09 21:54 | Magnetic Resonance Report ---
MR brain wo con HISTORY: 59 years-old Male TIA symptoms r/o stroke acute strokelike symptoms COMPARISON: Head CT of same day, brain MRI 11/19/2017 TECHNIQUE: Multiplanar multisequence MRI of the brain was obtained without the use of IV contrast. FINDINGS: Motion degraded exam. Vice President Of Instruction localizer images demonstrate no gross extracranial abnormality. No restri cted diffusion to suggest acute or subacute infarct. Unchanged prominence of the clivus. Age-related involutional changes with ex vacuo ventriculomegaly. Extensive T2/FLAIR hyperintensities predominantl y through the white matter have progressed from comparison and are suggestive of chronic microvascula r ischemic disease. Remote lacunar infarcts of the right cerebellar hemisphere are new from 2018. Mul tiple remote lacunar infarcts of the worrell radiata and basal ganglia. Remote right parietal lobe inf arct with encephalomalacia. Remote left-sided pontine infarct. No acute intracranial hemorrhage, midl ine shift, abnormal extra-axial collection, hydrocephalus or intracranial mass identified. Major vascular flow voids are patent and unremarkable. Mild polypoid mucosal thickening of the right maxillary sinus. Trace mastoid effusions. Orbits, skull and soft tissues are unremarkable. IMPRESSION: 1. Motion degraded exam without acute intracranial abnormality identified. Specifically, there is no evidence of acute or subacute infarct. 2. Age-related involutional changes with mild ex vacuo ventriculomegaly. 3. Extensive T2/FLAIR hyperintensities throughout the white matter have progressed from 2018 and are suggestive of advanced chronic microvascular ischemic disease. 4. Remote infarctions as above. ACT 112: Negative or not required by law. The above report was generated using voice recognition software. It may contain grammatical, syntax o r spelling errors. Results electronically sent 08/09/2019 9:52 PM to: Jenna Box PA-C Electronically signed by: Antonino Gr M.D. 08/09/2019 9:52 PM
--- NOTE | 2019-08-09 21:56 | Electrocardiogram Report ---
Test Reason : Blood Pressure : / mmHG Vent. Rate : 081 BPM Atrial Rate : 081 BPM P-R Int : 134 ms QRS Dur : 086 ms QT Int : 384 ms P-R-T Axes : 054 034 120 degrees QTc Int : 446 ms Normal sinus rhythm Possible Left atrial enlargement Inferior infarct (cited on or before 13-OCT-2006) Anterior infarct Abnormal ECG When compared with ECG of 19-DEC-2018 13:56, No significant change was found Confirmed by Jose Raul Parker ([id number]) on 08/09/2019 9:56:03 PM Referred By: REFERRED SELF Confirmed By:Jose Raul Parker
[2019-08-09] MEDS: INSULIN GLARGINE SOLOSTAR 100 UNITS/ML 3 ML PEN SC SCH (22:13)
[2019-08-09] MEDS: CEFDINIR 300 MG CAP PO SCH (22:15)
[2019-08-09] MEDS: CLINDAMYCIN HCL 150 MG CAP PO SCH (22:17)
[2019-08-09] MEDS: carvediloL 12.5 MG TAB PO SCH (22:17)
[2019-08-09 22:51] LABS: Partial Thromboplastin Ratio 1.3; Partial Thromboplastin Time 35.7 Seconds (21.0-31.0)
[2019-08-09] MEDS ORDERED: HEPARIN SODIUM IV ONE (23:08)
[2019-08-09] MEDS ORDERED: HEPARIN IV BOLUS 4,500 UNITS in SYRINGE 0 ML IV STA (23:20)
[2019-08-10 03:47] LABS: Appearance Urine Clear (Clear); Bilirubin Urine Negative (Negative); Blood Urine Negative (Negative); Color Urine Yellow; Glucose Urine UA Negative (Negative); Ketones Urine Trace (Negative); Leukocyte Esterase Urine Negative (Negative); Nitrite Urine Negative (Negative); Protein Urine Negative (Negative); Specific Gravity Urine 1.027 (1.000-1.030); Urobilinogen Urine Negative (Negative); pH Urine 5.5 (4.5-7.5)
[2019-08-10 05:43] LABS: Basophils # (auto) 0.02 K/uL (0-0.2); Basophils % (auto) 0.3 %; Eosinophils # (auto) 0.23 K/uL (0-0.5); Eosinophils % (auto) 3.2 %; Hematocrit (blood only) 37.9 % (42-52); Hemoglobin 12.3 g/dL (14.0-18.0); Immature Granulocytes # (auto) 0.01 K/uL (0.00-0.02); Immature Granulocytes % (auto) 0.1 %; Lymphocytes # (auto) 2.58 K/uL (1.2-3.4); Lymphocytes % (auto) 35.9 %; Mean Corpuscular Hemoglobin 26.2 pg (25-34); Mean Corpuscular Hgb Conc 32.5 g/dL (32-36); Mean Corpuscular Volume 80.6 fL (80-100); Mean Platelet Volume 10.5 fL (7.4-10.4); Monocytes # (auto) 0.61 K/uL (0.11-0.59); Monocytes % (auto) 8.5 %; Neutrophils # (auto) 3.73 K/uL (1.4-6.5); Platelet Count 219 K/uL (130-400); RDW Coefficient of Variation 14.2 % (11.5-14.5); RDW Standard Deviation 41.9 fL (36.4-46.3); White Blood Count 7.18 K/uL (4.8-10.8)
[2019-08-10 06:09] LABS: INR 1.5 (0.9-1.1); Partial Thromboplastin Ratio 2.5; Prothrombin Time 15.3 Seconds (9.0-12.0)
[2019-08-10 06:12] LABS: BUN Creatinine Ratio 23.4 (10-20); Creatinine Clr Calc Pharmacy 105.4 ml/min; Magnesium 1.7 mg/dl (1.8-2.4); Potassium 3.6 mmol/L (3.5-5.1)
[2019-08-10] MEDS: INSULIN GLARGINE SOLOSTAR 100 UNITS/ML 3 ML PEN SC SCH (08:35)
[2019-08-10] MEDS: INSULIN ASPART 100 UNITS/ML 3 ML PEN SC SCH ×3 (08:35→17:41)
[2019-08-10] MEDS: carvediloL 12.5 MG TAB PO SCH (08:36)
[2019-08-10] MEDS: CLINDAMYCIN HCL 150 MG CAP PO SCH ×2 (08:36→13:51)
[2019-08-10] MEDS: CEFDINIR 300 MG CAP PO SCH (08:37)
[2019-08-10] MEDS ORDERED: lisinopriL 40 MG TAB PO SCH (09:00)
[2019-08-10] MEDS ORDERED: BACLOFEN 10 MG TAB PO SCH (09:00)
[2019-08-10] MEDS ORDERED: CLOPIDOGREL BISULFATE 75 MG TAB PO SCH (09:00)
[2019-08-10] MEDS ORDERED: ASPIRIN 81 MG CHEW PO SCH (09:00)
[2019-08-10] MEDS: MAGNESIUM SULFATE / D5W 1 GM/100 ML BAG IV SCH ×2 (11:36→12:10)
[2019-08-10] MEDS: HEPARIN SODIUM/DEXTROSE 25,000 UNITS/500 ML BAG IV SCH ×2 (11:45→13:51)
[2019-08-10 12:53] LABS: Partial Thromboplastin Ratio 1.6
[2019-08-10 13:06] LABS: Partial Thromboplastin Time 45.8 Seconds (21.0-31.0)
--- NOTE | 2019-08-10 13:39 | Neurology Consultation ---
Date of Consultation August 10, 2019 Assessment & Plan (1) Stroke-like symptom: 1. MRI- no acute findings 2. carotid Doppler no significant stenosis or occlusion 3 optimize INR 4. continue plavix 75 mg and aspirin 81 mg daily- will evaluate if one of these can be stopped 5. optimize HTN, HLD, DM LDL <70 6. monitor drops in glucose especially with excessive exercise 7. TTE- if not done 8. follow with cardiology as scheduled. follow up with neurology in 4-6 after discharge-Kasey BURNETT (2) TIA (transient ischemic attack): (3) Subtherapeutic international normalized ratio (INR): (4) Right foot drop: (5) H/O: CVA (cerebrovascular accident): Supervising Physician Co-Signing Physician Notes Patient was seen and examined. at bedside. Admitted for reported encephalopathy improved with chocolate. Ddx: hypoglycemic encephalopathy Vs decompensation of previous stroke. History of prior left MCA ischemic stroke with residual right sided weakness. MRI reviewed and shows previous lacunar infarcts on the left consistent with small vessel ischemic disease. No acute infarct. CArotid US no high grade stenosis. UA was Negative. On examine speech is clear. Comprehension is intact. Smile is symmetric. Left inferior VF deficit (?chronic). Left eye does not abduct completely likely chronic as he denies diplopia. Would recommend to continue high intensity statin and antiplatet therapy. Will defer to cardiology if Coumadin is needed from Cardiac standpoint otherwise would recommend stopping. hA1C goal <7. Ok to discharge from Neuro standpoint. History of Present Illness Reason for Consultation: TIA sx Requesting Physician: Leda George DO Attending Physician: Leda George DO History of Present Illness Deja is a 59 year old male with PMH -CAD s/p CABG x 3, insulin dependent DM II, severe aortic stenosis, CVA with right hemiparesis, right foot drop, bilateral carotid stenosis, HTN, HLD, SMA stenosis, right great toe ulcer and osteomyelitis presented to [facility] ED with confusional episode. He was at PT which was ordered secondary to right-sided weakness from prior stroke. He was feeling a little sluggish and some confusion and garbled speech. His glucometer was not working so she gave him some chocolate. There was no facial drooping or difficulty swallowing. The symptoms lasted approximately 15 minutes and when they arrived at the ED he was back to baseline. There was no increased right- sided weakness from baseline or other extremity weakness, SOB, CP, N, V, vision changes, new bowel or bladder issues, swallowing issues, slurred speech, he adache Allergies Allergy/AdvReac Type Severity Reaction Status Date / Time No Known Allergies Allergy Verified 08/09/19 12:37 Home Medications Home Medications Medication Instructions Recorded Confirmed Type atorvastatin 80 mg tablet 80 mg PO QPM 07/10/18 08/09/19 History baclofen 5 mg tablet 5 mg PO QAM tab 07/10/18 08/09/19 History carvedilol 12.5 mg tablet 12.5 mg PO BID 07/10/18 08/09/19 History clopidogrel 75 mg tablet 75 mg PO QAM 07/10/18 08/09/19 History insulin glargine 100 unit/mL 30 units SQ AMPM ml 07/10/18 08/09/19 History subcutaneous solution lisinopril 40 mg tablet 40 mg PO QAM 07/10/18 08/09/19 History metformin 1,000 mg tablet 1,000 mg PO BID 07/10/18 08/09/19 History insulin aspart U-100 [Novolog 14 unit SUBCUT ACHS 09/08/18 08/09/19 History U-100 Insulin aspart] clindamycin HCl 300 mg PO TID #42 cap 12/23/18 08/09/19 Rx cefdinir 300 mg capsule 300 mg PO BID #60 cap 04/27/19 08/09/19 Rx aspirin 162 mg PO DAILY 08/09/19 08/09/19 History nitroglycerin 0.4 mg SUBLINGUAL UD 08/09/19 08/09/19 History warfarin [Coumadin] 7.5 mg PO QAM 08/09/19 08/09/19 History Patient History Medical History Aortic valve stenosis (Chronic) CAD (coronary artery disease) (Chronic) Carotid stenosis (Chronic) Dyslipidemia (Chronic) Hemiplegia affecting right dominant side (Chronic) HTN (hypertension) (Chronic) Monoplegia affecting right dominant side (Chronic) Obesity (Chronic) Proliferative diabetic retinopathy (Chronic) Retinal edema (Chronic) Right foot drop (Chronic) Status post cerebrovascular accident (Chronic) Status post myocardial infarction (Chronic) Superior mesenteric artery stenosis (Chronic) Type 2 diabetes mellitus (Chronic) Surgical History Hx of vitrectomy (Acute) S/P angioplasty with stent (Chronic) S/P CABG x 3 (Chronic) S/P PTCA (percutaneous transluminal coronary angioplasty) (Chronic) Family History Father Heart disease Social History Preferred Language: Bengali Communication Ability: Effective Visual Impairment: No Limitations Hearing Ability: Normal Typing Checker Required: No Beliefs That Will Affect Care: None marital status: Current Living Situation: Spouse Current Living Situation Comment: own home current occupational status: disabled Other Information That Helps Us Care for You: No Feels Safe at Home: Yes Smoking Status: Former smoker Tobacco Type: cigarettes ; Second Hand Exposure: No ; Tobacco Cessation Education Requested by Patient: No Hx Alcohol Use: No Hx Substance Use: No Physical Exam Physical Exam: Physical Exam: Constitutional: appearance nourished, healthy and normal Ears, Nose, Mouth and Throat: mucous membranes moist, no injection and skin normal, eyes normal Cardiovascular: loud opening murmur Respiratory: course breath sounds no wheezing Musculoskeletal: no peripheral edema Skin: no stigmata of neurocutaneous disease noted and normal and intact Eyes: extraocular muscles intact (EOMI) and pupils equal, round and reactive to light (PERRL), gross peripheral vision intact NEUROLOGIC EXAMINATION: Mental status: Alert and interactive Oriented to full date and location Oriented to person Speech fluent with no evidence of aphasia Cranial Nerves slight right flattening naso labial fold, eye brow raise symmetric Reflexes: Deep tendon reflexes were symmetrical and brisk Sensory: intact to cool and light touch Coordination: finger to nose no bi pass Gait/Stance: Posture normal. Gait normal: gait not assessed Motor: slight pronator drift on right. 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 4+/5, left 5/5, hip flex bilaterally 4+/5, right plantar flex 3/5 Results & Data Vital Signs (Past 12 Hours) Vital Signs Temp Pulse Pulse Resp BP Pulse Ox 08/10/19 12:16 37.3 C 75 20 129/74 95 08/10/19 07:33 70 08/10/19 07:07 36.8 C 70 18 126/66 95 08/10/19 02:56 36.9 C 75 18 114/67 92 Laboratory Results Abnormal lab results 08/09/19 08/09/19 08/09/19 Range/Units 16:22 22:11 22:21 Hgb (14.0-18.0) g/dL Hct (42-52) % MPV (7.4-10.4) fL [place] # (Auto) (0.11-0.59) K/uL PT (9.0-12.0) Seconds INR (0.9-1.1) APTT 35.7 H (21.0-31.0) Seconds Chloride (98-107) mmol/L BUN (7-18) mg/dl BUN/Creatinine Ratio (10-20) Glucose (70-99) mg/dl POC Glucose 129 H 111 H (70-99) mg/dl Calcium (8.5-10.1) mg/dl Magnesium (1.8-2.4) mg/dl Triglycerides (0-150) mg/dl Urine Ketones (Negative) 08/10/19 08/10/19 08/10/19 Range/Units 03:40 05:24 05:24 Hgb 12.3 L (14.0-18.0) g/dL Hct 37.9 L (42-52) % MPV 10.5 H (7.4-10.4) fL [place] # (Auto) 0.61 H (0.11-0.59) K/uL PT 15.3 H (9.0-12.0) Seconds INR 1.5 H (0.9-1.1) APTT 67.0 H* (21.0-31.0) Seconds Chloride (98-107) mmol/L BUN (7-18) mg/dl BUN/Creatinine Ratio (10-20) Glucose (70-99) mg/dl POC Glucose (70-99) mg/dl Calcium (8.5-10.1) mg/dl Magnesium (1.8-2.4) mg/dl Triglycerides (0-150) mg/dl Urine Ketones Trace H (Negative) 08/10/19 08/10/19 08/10/19 Range/Units 05:24 07:36 11:46 Hgb (14.0-18.0) g/dL Hct (42-52) % MPV (7.4-10.4) fL [place] # (Auto) (0.11-0.59) K/uL PT (9.0-12.0) Seconds INR (0.9-1.1) APTT (21.0-31.0) Seconds Chloride 108 H (98-107) mmol/L BUN 20 H (7-18) mg/dl BUN/Creatinine Ratio 23.4 H (10-20) Glucose 133 H (70-99) mg/dl POC Glucose 128 H 232 H (70-99) mg/dl Calcium 8.0 L (8.5-10.1) mg/dl Magnesium 1.7 L (1.8-2.4) mg/dl Triglycerides 167 H (0-150) mg/dl Urine Ketones (Negative) 08/10/19 Range/Units 12:21 Hgb (14.0-18.0) g/dL Hct (42-52) % MPV (7.4-10.4) fL [place] # (Auto) (0.11-0.59) K/uL PT (9.0-12.0) Seconds INR (0.9-1.1) APTT 45.8 H* (21.0-31.0) Seconds Chloride (98-107) mmol/L BUN (7-18) mg/dl BUN/Creatinine Ratio (10-20) Glucose (70-99) mg/dl POC Glucose (70-99) mg/dl Calcium (8.5-10.1) mg/dl Magnesium (1.8-2.4) mg/dl Triglycerides (0-150) mg/dl Urine Ketones (Negative) Diagnostic Findings carotid doppler-. No hemodynamically significant stenosis. Normal antegrade vertebral flow bilaterally. MRI brain-. Motion degraded exam without acute intracranial abnormality identified. Specifically, there is no evidence of acute or subacute infarct. Age-related involutional changes with mild ex vacuo ventriculomegaly. Extensive T2/FLAIR hyperintensities throughout the white matter have progressed from 2018 and are suggestive of advanced chronic microvascular ischemic disease. Remote infarctions. CT head-There is no hemorrhage, mass effect, or evidence of acute territorial ischemia by CT criteria.
[2019-08-10] MEDS ORDERED: HEPARIN IV BOLUS 3,000 UNITS in SYRINGE 0 ML IV ONE (13:45)
--- NOTE | 2019-08-10 16:04 | Emergency Department Note ---
Entered by Bessie Mendoza acting as a scribe for Annabelle England DO History of Present Illness General Chief complaint: Confusion Stated complaint: SLURED, NOT MAKING SENSE Time Seen by Provider: 08/09/19 11:41 Source: patient and family History of Present Illness Onset (ago): hour(s) (0800 this morning) Location: head (confusion) Pain Consistency: + other (episode) Quality: + other (onfusion) Relieved By: + eating (chocolate) Associated symptoms: + confusion and + other (Positive garbled speech. Negative dizziness, abdominal pain.); no chest pain, no diaphoresis, no headaches, no seizure and no syncope Treatments prior to arrival: none The patient is a 59 year old male presenting to the Emergency Department complaining of an episode of confusion occurring this morning at 0800. The patients reports that the patient was confused and not acting like himself after his physical therapy appointment for about 15 minutes. She states that the patient was spacey and not talking normally. She explains that the patients blood sugar was 114 this morning before his physical therapy appointment and the patient worked hard at his appointment and didnt eat after. She notes that she then gave the patient chocolate and that his symptoms seemed to improve. She adds that the patient normally follows with Dr. Huff principal planner. The patient reports that for about 15 minutes after physical therapy his speech was garbled. He states that he understood what his was saying to him and knew what he wanted to say but that when he tried to speak his speech was garbled. He explains that his speech is back to normal now. He notes that he had a stroke a few months ago. 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 The patient denies headache, dizziness, chest pain, abdominal pain, diaphoresis, syncope and seizure like behavior. Home Medications Home Medications Medication Instructions Recorded Confirmed Type atorvastatin 80 mg tablet 80 mg PO QPM 07/10/18 08/09/19 History baclofen 5 mg tablet 5 mg PO QAM tab 07/10/18 08/09/19 History carvedilol 12.5 mg tablet 12.5 mg PO BID 07/10/18 08/09/19 History clopidogrel 75 mg tablet 75 mg PO QAM 07/10/18 08/09/19 History insulin glargine 100 unit/mL 30 units SQ AMPM ml 07/10/18 08/09/19 History subcutaneous solution lisinopril 40 mg tablet 40 mg PO QAM 07/10/18 08/09/19 History metformin 1,000 mg tablet 1,000 mg PO BID 07/10/18 08/09/19 History insulin aspart U-100 [Novolog 14 unit SUBCUT ACHS 09/08/18 08/09/19 History U-100 Insulin aspart] clindamycin HCl 300 mg PO TID #42 cap 12/23/18 08/09/19 Rx cefdinir 300 mg capsule 300 mg PO BID #60 cap 04/27/19 08/09/19 Rx aspirin 162 mg PO DAILY 08/09/19 08/09/19 History nitroglycerin 0.4 mg SUBLINGUAL UD 08/09/19 08/09/19 History warfarin [Coumadin] 7.5 mg PO QAM 08/09/19 08/09/19 History Allergies Allergy/AdvReac Type Severity Reaction Status Date / Time No Known Allergies Allergy Verified 08/09/19 12:37 Past Med/Surg History Medical History Aortic valve stenosis (Chronic) CAD (coronary artery disease) (Chronic) Carotid stenosis (Chronic) Dyslipidemia (Chronic) Hemiplegia affecting right dominant side (Chronic) HTN (hypertension) (Chronic) Monoplegia affecting right dominant side (Chronic) Obesity (Chronic) Proliferative diabetic retinopathy (Chronic) Retinal edema (Chronic) Right foot drop (Chronic) Status post cerebrovascular accident (Chronic) Status post myocardial infarction (Chronic) Superior mesenteric artery stenosis (Chronic) Type 2 diabetes mellitus (Chronic) Surgical History Hx of vitrectomy (Acute) S/P angioplasty with stent (Chronic) S/P CABG x 3 (Chronic) S/P PTCA (percutaneous transluminal coronary angioplasty) (Chronic) Family History Father Heart disease Social History Preferred Language: Indonesian Communication Ability: Effective Visual Impairment: No Limitations Hearing Ability: Normal Scout Sniper Required: No Beliefs That Will Affect Care: None marital status: Current Living Situation: Spouse Current Living Situation Comment: own home current occupational status: disabled Other Information That Helps Us Care for You: No Feels Safe at Home: Yes Smoking Status: Former smoker Tobacco Type: cigarettes ; Second Hand Exposure: No ; Tobacco Cessation Education Requested by Patient: No Hx Alcohol Use: No Hx Substance Use: No Review of Systems See HPI for pertinent positives & negatives. and A total of 10 systems reviewed and were otherwise negative Physical Exam Vital Signs Vital Signs - 24 hr 08/09/19 11:06 Temperature 98.2 F Temperature Source Oral Pulse Rate 88 Respiratory Rate 18 Respiratory Effort / Characteristics Non-Labored Spontaneous Respiratory Depth Normal Blood Pressure 156/88 H Blood Pressure Mean 110 Blood Pressure Position Sitting Pulse Oximetry 99 Oxygen Delivery Method Room Air Sepsis Recent Fever Within 48 Hours No Sepsis Action Taken by Nursing No Action Required GENERAL: alert, well appearing, well nourished, no distress, non-toxic EYE EXAM: normal conjunctiva, PERRL and EOM's grossly intact OROPHARYNX: Mildly dry mucous membranes. No exudate, no erythema, lips, buccal mucosa, and tongue normal. NECK: supple, no nuchal rigidity, no adenopathy, non-tender LUNGS: Clear to auscultation. Normal chest wall mechanics, no w/r/r HEART: no murmurs, S1 normal and S2 normal ABDOMEN: abdomen soft, non-tender, normo-active bowel sounds, no masses, no rebound or guarding. BACK: Back is symmetrical on inspection and there is no deformity, no midline tenderness, no CVA tenderness. SKIN: no rashes and no bruising UPPER EXTREMITIES: upper extremities are grossly normal. FROM, nml pulses b/l. LOWER EXTREMITIES: RLE in posterior brace. 1+ bilateral edema. FROM, nml pulses b/l. NEURO EXAM: Normal sensorium, cranial nerves II-XII grossly intact, normal speech, no gross weakness of arms, no gross weakness of legs. Course Course 1148: The patient was evaluated in room C4, and a complete history and physical examination were performed. 1326: I reevaluated the patient at this time who states that he is feeling good. He reports that his last INR was 2.2. 1351: I discussed the patient's case with Karolina Box PA-C. Dr. Bruno - [facility] hospitalist will evaluate the patient for further management. Administered Medications Aspirin (Aspirin Chew) 162 mg PO DAILY [facility] Stop: 09/09/19 08:59 Last Admin: 08/10/19 08:37 Dose: 162 mg Documented by: [id number] Cosigned by: [id number] Atorvastatin Calcium (Lipitor) 80 mg PO QPM [facility] Stop: 09/08/19 20:59 Last Admin: 08/09/19 22:18 Dose: 80 mg Documented by: [id number] Baclofen (Lioresal) 5 mg PO QAM [facility] Stop: 09/09/19 08:59 Last Admin: 08/10/19 08:37 Dose: 5 mg Documented by: [id number] Cosigned by: [id number] Carvedilol (Coreg) 12.5 mg PO BID [facility] Stop: 09/08/19 20:59 Last Admin: 08/10/19 08:36 Dose: 12.5 mg Documented by: [id number] Cosigned by: [id number] Admin: 08/09/19 22:17 Dose: 12.5 mg Documented by: [id number] Cefdinir (Omnicef Cap) 300 mg PO BID [facility] Stop: 09/20/19 20:59 Last Admin: 08/10/19 08:37 Dose: 300 mg Documented by: [id number] Cosigned by: [id number] Admin: 08/09/19 22:15 Dose: 300 mg Documented by: [id number] Clindamycin HCl (Cleocin) 300 mg PO TID [facility] Stop: 09/20/19 20:59 Last Admin: 08/10/19 13:51 Dose: 300 mg Documented by: [id number] Admin: 08/10/19 08:36 Dose: 300 mg Documented by: [id number] Cosigned by: [id number] Admin: 08/09/19 22:17 Dose: 300 mg Documented by: [id number] Clopidogrel Bisulfate (Plavix) 75 mg PO QAM [facility] Stop: 09/09/19 08:59 Last Admin: 08/10/19 08:38 Dose: 75 mg Documented by: [id number] Cosigned by: [id number] Heparin Sodium/Dextrose (Heparin Sodium/Dextrose) 25,000 units in 500 mls @ 23 mls/hr IV .[id number] [facility]; Protocol Stop: 09/08/19 14:44 Last Titration: 08/10/19 13:51 Dose: 1,150 units/hr, 23 mls/hr Documented by: [id number] Cosigned by: [id number] Admin: 08/10/19 13:51 Dose: 1,150 units/hr, 23 mls/hr Documented by: [id number] Cosigned by: [id number] Titration: 08/10/19 13:25 Dose: 1,150 units/hr, 23 mls/hr Documented by: [id number] Cosigned by: [id number] Admin: 08/10/19 11:45 Dose: 1,050 units/hr, 21 mls/hr Documented by: [id number] Cosigned by: [id number] Titration: 08/10/19 11:45 Dose: 1,050 units/hr, 21 mls/hr Documented by: [id number] Cosigned by: [id number] Titration: 08/10/19 06:36 Dose: 1,050 units/hr, 21 mls/hr Documented by: [id number] Cosigned by: [id number] Titration: 08/09/19 23:33 Dose: 1,150 units/hr, 23 mls/hr Documented by: [id number] Cosigned by: [id number] Titration: 08/09/19 19:09 Dose: 1,000 units/hr, 20 mls/hr Documented by: [id number] Cosigned by: [id number] Admin: 08/09/19 14:59 Dose: 1,000 units/hr, 20 mls/hr Documented by: [id number] Cosigned by: [id number] Insulin Aspart (Novolog Flexpen) 0 units SC ACHS [facility] Stop: 09/08/19 16:33 Last Admin: 08/10/19 12:09 Dose: 8 units Documented by: [id number] Cosigned by: [id number] Admin: 08/10/19 08:35 Dose: 11 units Documented by: [id number] Cosigned by: [id number] Admin: 08/09/19 22:19 Dose: Not Given Documented by: [id number] Admin: 08/09/19 18:08 Dose: 10 units Documented by: [id number] Cosigned by: [id number] Insulin Glargine (Lantus Solostar Pen) 0 - 30 units SC BID [facility]; Protocol Stop: 09/08/19 20:59 Last Admin: 08/10/19 08:35 Dose: 15 units Documented by: [id number] Cosigned by: [id number] Admin: 08/09/19 22:13 Dose: 15 units Documented by: [id number] Cosigned by: [id number] Lisinopril (Zestril) 40 mg PO QAM [facility] Stop: 09/09/19 08:59 Last Admin: 08/10/19 08:38 Dose: 40 mg Documented by: [id number] Cosigned by: [id number] Warfarin Sodium (Coumadin) 7.5 mg PO DAILY@1600 [facility] Stop: 09/08/19 17:59 Last Admin: 08/09/19 18:09 Dose: 7.5 mg Documented by: [id number] Discontinued Medications Heparin Sodium/Dextrose () 1 ea IV ONE ONE; Protocol Stop: 08/09/19 14:42 Last Admin: 08/09/19 17:44 Dose: Not Given Documented by: [id number] Heparin Sodium/Dextrose (Heparin Sodium/Dextrose) Confirm Administered Dose 25,000 units IV .STK-MED ONE Stop: 08/09/19 14:58 Last Admin: 08/09/19 15:43 Dose: Not Given Documented by: [id number] Sodium Chloride (Nss) 500 mls @ 125 mls/hr IV .Q4H [facility] Stop: 09/08/19 12:14 Last Admin: 08/09/19 19:10 Dose: Not Given Documented by: [id number] Infusion: 08/09/19 19:10 Dose: 0 mls/hr Documented by: [id number] Admin: 08/09/19 12:41 Dose: 125 mls/hr Documented by: [id number] Magnesium Sulfate/Dextrose (Magnesium Sulfate / D5w) 1 gm in 100 mls @ 100 mls/hr IV ONE ONE Stop: 08/09/19 14:18 Last Infusion: 08/09/19 15:39 Dose: 0 mls/hr Documented by: [id number] Admin: 08/09/19 13:59 Dose: 100 mls/hr Documented by: [id number] Lorazepam (Ativan) 0.5 mg in 1 mls @ 1 mls/min IV NOW STA Stop: 08/09/19 19:52 Last Admin: 08/09/19 21:22 Dose: 1 mls/min Documented by: [id number] Heparin Sodium (Porcine) 4,500 (units/ Syringe) 0.9 mls @ 1 mls/min IV ONE ONE Stop: 08/09/19 23:09 Last Admin: 08/09/19 23:46 Dose: Not Given Documented by: [id number] Heparin Sodium (Porcine) 4,500 (units/ Syringe) 4.5 mls @ 10 mls/min IV ONE STA Stop: 08/09/19 23:21 Last Admin: 08/09/19 23:34 Dose: 10 mls/min Documented by: [id number] Cosigned by: [id number] Magnesium Sulfate/Dextrose (Magnesium Sulfate / D5w) 1 gm in 100 mls @ 100 mls/hr IV Q1H [facility] Stop: 08/10/19 13:29 Last Infusion: 08/10/19 13:32 Dose: 0 mls/hr Documented by: [id number] Admin: 08/10/19 12:10 Dose: 100 mls/hr Documented by: [id number] Cosigned by: [id number] Infusion: 08/10/19 12:10 Dose: 100 mls/hr Documented by: [id number] Cosigned by: [id number] Admin: 08/10/19 11:36 Dose: 100 mls/hr Documented by: [id number] Heparin Sodium (Porcine) 3,000 (units/ Syringe) 3 mls @ 10 mls/min IV ONE ONE Stop: 08/10/19 13:46 Last Admin: 08/10/19 13:51 Dose: 10 mls/min Documented by: [id number] Cosigned by: [id number] Labetalol HCl (Normodyne) 10 mg IV NOW STA Stop: 08/09/19 14:41 Last Admin: 08/09/19 15:11 Dose: 10 mg Documented by: [id number] Cosigned by: [id number] Medical Decision Making Differential Diagnosis Differential diagnoses includes but is not limited to toxic, metabolic, infectious, traumatic, cardiac, neurologic, hematologic, psychiatric and in flammatory etiologies. Medical Records Attestation: I reviewed the patient's medical records. Home Medications Current Medication List: was personally reviewed by me Laboratory Data Attestation: I reviewed the patient's lab results. Result diagrams: 08/10/19 05:24 08/10/19 05:24 Lab Results 08/09/19 08/09/19 08/09/19 Range/Units 12:27 12:27 12:27 WBC 8.41 (4.8-10.8) K/uL RBC 5.37 (4.7-6.1) M/uL Hgb 14.4 (14.0-18.0) g/dL Hct 44.1 (42-52) % MCV 82.1 (80-100) fL MCH 26.8 (25-34) pg MCHC 32.7 (32-36) g/dL RDW Std Deviation 42.9 (36.4-46.3) fL RDW Coeff of Caroline 14.4 (11.5-14.5) % Plt Count 250 (130-400) K/uL MPV 10.5 H (7.4-10.4) fL Immature Gran % (Auto) 0.1 % Neut % (Auto) 68.3 % Lymph % (Auto) 22.4 % [place] % (Auto) 6.9 % Eos % (Auto) 2.1 % Baso % (Auto) 0.2 % Immature Gran # (Auto) 0.01 (0.00-0.02) K/uL Neut # (Auto) 5.74 (1.4-6.5) K/uL Lymph # (Auto) 1.88 (1.2-3.4) K/uL [place] # (Auto) 0.58 (0.11-0.59) K/uL Eos # (Auto) 0.18 (0-0.5) K/uL Baso # (Auto) 0.02 (0-0.2) K/uL PT 13.1 H (9.0-12.0) Seconds INR 1.3 H (0.9-1.1) Sodium 140 (136-145) mmol/L Potassium 4.1 (3.5-5.1) mmol/L Chloride 108 H (98-107) mmol/L Carbon Dioxide 27 (21-32) mmol/L Anion Gap 5.0 (3-11) BUN 25 H (7-18) mg/dl Creatinine 0.89 (0.6-1.4) mg/dl Est Cr Clr Drug Dosing Not Reportable Est GFR ( Amer) 107.0 Est GFR (Non-Af Amer) 92.3 BUN/Creatinine Ratio 27.6 H (10-20) Glucose 189 H (70-99) mg/dl Calcium 9.0 (8.5-10.1) mg/dl Magnesium 1.7 L (1.8-2.4) mg/dl Total Bilirubin 0.3 (0.2-1) mg/dl AST 15 (15-37) U/L ALT 29 (12-78) U/L Alkaline Phosphatase 63 (45-117) U/L Troponin I < 0.015 (0-0.045) ng/ml NT-Pro-B Natriuret Pep 793 (0-900) pg/ml Total Protein 7.8 (6.4-8.2) gm/dl Albumin 3.5 (3.4-5.0) gm/dl Globulin 4.3 H (2.5-4.0) gm/dl Albumin/Globulin Ratio 0.8 L (0.9-2) Lipase 56 L (73-393) U/L TSH 1.360 (0.300-4.500) uIu/ml Specimen Hemolysis Imaging Data Radiologist's Impression: Radiology results as stated below per my review and the radiologist's interpretation: CT SCAN OF THE BRAIN WITHOUT IV CONTRAST CLINICAL HISTORY: Change in mental status. COMPARISON STUDY: CT of the brain dated 12/18/2018. TECHNIQUE: Unenhanced axial CT scan of the brain is performed from the vertex to the skull base. A dose lowering technique was utilized adhering to the principles of ALARA. CT DOSE: 614.27 mGy.cm FINDINGS: Brain parenchyma: There are age-related involutional changes noting moderate to advanced subcortical and periventricular microangiopathic change. There is no hemorrhage, mass effect, or evidence of acute territorial ischemia by CT crite jazzmine. There are chronic lacunar infarcts in the periventricular white matter, the left caudate head, and the left thalamus. Rose-white matter differentiation is preserved. No extra-axial fluid collection is seen. Ventricles, sulci, cisterns: Prominent secondary to involutional change. Intracranial vasculature: There is atherosclerotic calcification of the cavernous carotid and vertebral arteries. Calvarium: Unremarkable. Sinuses and mastoids: The visualized paranasal sinuses are clear. The mastoid air cells are well pneumatized. Orbits: The bony orbits are grossly intact. IMPRESSION: There is no hemorrhage, mass effect, or evidence of acute territorial ischemia by CT criteria. ACT 112: Negative or not required by law. Results electronically sent 08/09/2019 1:06 PM to: DO Garett Nelsonally signed by: Donny Fernando M.D. 08/09/2019 1:06 PM ECG Data Attestation: I personally reviewed and interpreted this ECG as follows: Indication: + altered mental status Rate (beats per minute): 81 Rhythm: + sinus rhythm ECG Intervals/blocks: + Normal QRS and + Normal QT ECG [place]: + Normal ECG ST segments: + T-wave inversions (TWI in Lead 1 and aVL.) ECG Findings: + Q waves (Q waves in Lead 3, aVF and V2 V5) and + Other Comparison ECG Date: from (12/19/18) Change: no significant change Blood Pressure Blood Pressure Findings: Elevated blood pressure Blood Pressure Disposition: further management by hospitalist [facility] Narrative Cardiac Monitoring: An order was placed for continuous cardiac monitoring. The monitor shows a rate of 88 with sinus rhythm. Patient here well-appearing with possible TIA earlier today. Symptoms were abrupt in onset and lasted approximately 15 minutes. Patient has had no recurrent symptoms while in the emergency room. Patient's other labs and imaging reassuring with exception of a subtherapeutic INR. Given patient's history of CVA/TIA, risk factors for CVA, and subtherapeutic INR, discussed with them additional evaluation. I did call down to MRI, patient could not be added on at this time. Case discussed with hospitalist for additional evaluation and management. I do not suspect occult infectious etiology, electrolyte abnormali ty, intracranial hemorrhage or mass. Patient remained hemodynamically stable while in the emergency room. Impression & Plan TIA (transient ischemic attack), Subtherapeutic international normalized ratio (INR), Right foot drop, Dehydration, Hyperglycemia, Hypomagnesemia Discharge Plan Visit Data *Final* Discharge Date/Time: 08/09/19 16:11 Chief Complaint: Confusion Stated Complaint: SLURED, NOT MAKING SENSE ED Provider: Annabelle England Discharge Problem: TIA (transient ischemic attack), Subtherapeutic international normalized ratio (INR), Right foot drop, Dehydration, Hyperglycemia, Hypomagnesemia Patient Disposition: Admitted As Inpatient Discharge Instructions Interventions: ED Discharge Assessment Last Done: 08/09/19 16:11 The scribe's documentation has been prepared under my direction and personally reviewed by me in its entirety. I confirm that the note above accurately reflects all work, treatment, procedures, and medical decision making performed by me.
[2019-08-10] MEDS: WARFARIN SOD 7.5 MG TAB PO SCH (16:31)
--- NOTE | 2019-08-10 17:08 | Discharge Summary ---
Date of Service August 10, 2019 Admission HPI Per Admitting Provider Pt is 59 y/o M with PMH CAD s/p CABG x 3, insulin dependent DM II, severe aortic stenosis, CVA with right hemiparesis, right foot drop, bilateral carotid stenosis, HTN, HLD, SMA stenosis, right great toe ulcer and osteomyelitis presented to ER with complaint of confusion episode today. Patient finished PT today which she is doing secondary to right-sided weakness from prior stroke. States after PT was a little sluggish. reports was driving home when she noticed patient had some confusion and garbled speech. She arrived home quickly and attempted to use home glucometer to measure BSG however is unable to get it to work so gave patient chocolate to eat. Reports no facial drooping or difficulty swallowing. Reports symptoms lasted approximately 15 minutes and upon ER arrival patient is back to baseline. Denies any noted increased right- sided weakness from baseline or other extremity weakness, dizziness, chest pain, shortness of breath. Denies fever/chills, diaphoresis, N/V/D/C, ORELLANA, dizziness, syncope, vision changes, neck pain, orthopnea, palpitations, cough, sore throat, choking, otalgia, rhinorrhea, abdominal pain, paresthesias, extremity edema, rashes, urinary symptoms. Principal Diagnosis confusion-resolved subtherapeutic INR Cerebral vascular disease status post bilateral frontal infarctions on 05/30/2015 while he was already on dual anti-platelet therapy with aspirin and clopidogrel, prompting initiation of warfarin at that time, recurrent stroke 11/2017 Discharge Data Allergies Allergy/AdvReac Type Severity Reaction Status Date / Time No Known Allergies Allergy Verified 08/09/19 12:37 Consultations 08/09/19 14:20 ED Decision to Admit Stat 08/09/19 16:34 Consult Case Management - Discharge Planning Routine Consult Neurology Routine Ordered Studies 08/09/19 12:11 CT head/brain wo con Stat 08/09/19 16:34 MR brain wo con Routine US carotid doppler BI Routine Hospital Course (1) Confusion: 59-year-old man with a history of stroke presenting to the ER after some confusion at home. Symptom onset was present after finishing outpatient physical therapy lasting approximately 15 minutes then resolving. Upon arrival to the ER records reflect the patient was having normal speech and was at baseline neurologically. He was given a dose of IV labetalol for an elevated blood pressure of 214/94 and he was continued on aspirin Plavix and a statin. As his INR was subtherapeutic a heparin drip was started. Work-up included a head CT without contrast revealing no evidence of hemorrhage mass-effect or evidence of acute territorial ischemia. A brain MRI was performed revealing remote infarctions with no acute intracranial abnormality identified. Age- related involutional changes with mild ex vacuo ventriculomegaly was seen extensive hyperintensities throughout the white matter were progressed from 2018 and were suggestive of advanced chronic microvascular ischemic disease. Carotid Doppler was performed revealing no hemodynamically significant stenosis. Neurology was consulted and recommended to continue Plavix and aspirin daily. A follow-up with [facility] in 4 to 6 weeks was recommended. Further work-up included a urinalysis which was negative. Examination revealed clear speech with comprehension intact. Continuation of statin and antiplatelet therapy was recommended and he was discharged on Lovenox as he was still subtherapeutic from an INR standpoint. Close follow-up with the anticoagulation clinic was recommended to continue titration of Coumadin as needed. Close primary care follow-up was recommended also to ensure he was still doing well after going home. At time of discharge he was mentating and ambulating at baseline and tolerating p.o. He was hemodynamically stable and afebrile and oxygenating well on room air. He had a prior echocardiogram performed December 2018 revealing an ejection fraction of 55 to 60% with severe mitral annular calcification and borderline severe aortic valve stenosis. Moderate concentric left ventricular hypertrophy was noted with a small size apical wall motion abnormality with akinesis of the segments. Compared to the prior study performed in November 2017 there was no significant interval change. An echocardiogram was not performed again this admission. This can be performed as outpatient upon follow-up with neurology if warranted. (2) H/O: CVA (cerebrovascular accident): Total Time Total Time Spent Total Time Spent (In Minutes): 60 Total Time Includes: Examination of the Patient, Discharge Planning, Medication Reconciliation and Communication With Other Providers Discharge Plan Discharge Items Patient Disposition: Home - Self-Care Reason For Visit: TIA,STROKE LIKE SYMPTOMS Discharge Diagnosis: confusion-resolved subtherapeutic INR Condition on Discharge: Good Activity: Resume your previous activity Non-emergency contact: Primary Care Provider Call non-emergency contact if: you have any medication questions, your symptoms worsen, your pain is not controlled, your pain is worsening, your pain is unusual for you, your pain is concerning for you and you have a fever Follow-up/Referrals: Dereck Zaman, [Primary Care Provider] - 08/16/19 11:05 am Diet: Carb Consistent or DM2 and Heart Healthy Addtl Attending Provider Instructions: Please take all medications as instructed on discharge list below. Your INR was found to be subtherapeutic at 1.5. Your goal INR is 2-3. Therefore you will be provided with Lovenox injections to take twice daily until you are rechecked and within range. Recommend rechecking INR with the anticoagulation clinic on Tuesday. It is recommended that you follow-up with your primary care doctor within 1 week of discharge to ensure you are still doing well without a return of symptoms after leaving the hospital. It was a pleasure taking care of you! Please call if you have any questions or problems. You can reach a [facility] hospitalist on duty at [facility] 24 hours a day by calling [phone]. Take care of yourself. Leda George DO [facility] Hospitalist Pending Studies at Discharge: No Stand-Alone Forms: [facility], Smoking Cessation Medications and DC Order Prescriptions: New enoxaparin [Lovenox] 100 mg/mL syringe 100 mg SQ Q12H Qty: 10 RF: 1 Continued carvedilol 12.5 mg tablet 12.5 mg PO BID RF: 0 insulin glargine [Lantus U-100 Insulin] 100 unit/mL solution 30 units SQ AMPM RF: 0 clopidogrel [Plavix] 75 mg tablet 75 mg PO QAM RF: 0 atorvastatin [Lipitor] 80 mg tablet 80 mg PO QPM RF: 0 lisinopril 40 mg tablet 40 mg PO QAM RF: 0 metformin 1,000 mg tablet 1,000 mg PO BID RF: 0 baclofen 5 mg tablet 5 mg PO QAM RF: 0 cefdinir 300 mg capsule 300 mg PO BID Qty: 60 RF: 3 insulin aspart U-100 [Novolog U-100 Insulin aspart] 100 unit/mL Solution 14 unit SUBCUT ACHS RF: 0 clindamycin HCl 300 mg capsule 300 mg PO TID Qty: 42 RF: 1 warfarin [Coumadin] 7.5 mg tablet 7.5 mg PO QAM RF: 0 nitroglycerin 0.4 mg tablet, sublingual 0.4 mg sublingual UD RF: 0 aspirin 81 mg Tablet,Chewable 162 mg PO DAILY RF: 0 Discharge Orders: Discharge Order (Routine); Ordered 08/10/19 Ordered By: Leda George Admission Data Admit Date/Time: 08/09/19 14:37 Attending Provider: Leda George Admit Provider: Jolie Carr Primary Care Provider: Dereck Zaman Other Providers: Jolie Carr ; Garrick Ansari Other Interventions: Discharge Summary Assessment (RN) Last Done: 08/10/19 17:30 DC Date/Time DO NOT enter until pt leaves facility: 08/10/19 18:16
== END 2019-08-10 18:16 | disposition home or self-care (01) ==
LOC: ED 11:02 → 2N 11:02 → SUATTDRO 14:37 → 2N 16:11

== ENCOUNTER 2019-12-01 09:34 | Inpatient (IN) ==
--- NOTE | 2019-12-01 09:38 | Emergency Department Note ---
Impression & Plan Acute dehydration, Supratherapeutic INR, Hematoma of left thigh ED Provider Note NAME: TREVIN POPE AGE: 59 SEX: M : 1960 ARRIVES VIA: Ambulance INFORMANT: Patient, ED PROVIDER(S): Vinnie Robison MD Chief Complaint: Syncope, hypertension HPI: Does present via EMS due to concern for hypotension and brief episode of decreased responsiveness. The patient currently denies any chest pains or shortness of breath or abdominal pain or nausea or vomiting. The patient reportedly is wheelchair-bound secondary to a prior history of stroke and some right-sided deficits. The patient does live at home with his . Patient believes he may have fallen earlier today. Patient does complain of pain of the left lower extremity. Is well localized nonradiating. Patient is not ambulatory at baseline. Upon EMS arrival the patient did have a low blood pressure 60s over 30s was given 750 cc of IV fluids and the patient's BP has improved. No known history of seizures. Patient's BSG prior to arrival was in the 200s. ROS: See HPI for pertinent positives and negatives. A total of 10 systems were revi ewed and otherwise negative. Past medical history: See below Surgical history: See below Social history: See below Physical Exam: GENERAL: Wearing glasses, NAD, non-toxic. EYE EXAM: Normal conjunctiva. PERRL, no anisocoria and EOM's grossly intact w/o pain. NECK: Supple, no nuchal rigidity, no adenopathy, non-tender. No signs of meningismus. LUNGS: Clear to auscultation. Normal chest wall mechanics. HEART: NSR, systolic ejection murmur present. ABDOMEN: Abdomen soft, non-tender, normo-active bowel sounds, no masses, no rebound or guarding. BACK: No CVA TTP. SKIN: No rashes and no bruising. UPPER EXTREMITIES: Upper extremities are grossly normal. Noted atrophy of the right upper extremity with right upper extremity contracture. LOWER EXTREMITIES: Noted atrophy of the right lower extremity compared to the left upper extremity with pain to the left mid thigh without obvious deformity, compartments are soft. NEURO EXAM: A&O x3, cranial nerves II-XII grossly intact, no obvious facial droop. Normal speech, good strength of the left upper and left lower extremity, decreased strength of right upper right lower extremity. Differential diagnoses: Infection, dehydration, metabolic abnormality, hypo/hyperglycemia, electrolyte disturbance, anemia, hypoxia, cardiac sources, intracerebral event, toxicologic, neurologic, as well as other pathologies. Course: Patient was seen and evaluated the bedside. Full history physical exam was performed. EKG: Indication: Possible syncope Normal sinus rhythm, rate of 75, normal intervals, normal axis, T wave inversions any high lateral leads trace elevation in V1. This appears unchanged from prior EKG August 09, 2019 Imaging Studies: Radiology results as stated below per my review in the radiologist's interpretation: XR chest 1V not portable CLINICAL HISTORY: weakness COMPARISON STUDY: 12/18/2018 FINDINGS: The bones soft tissues and hemidiaphragms are normal. The cardiomediastinal silhouette is normal. The lungs are clear. The pulmonary vasculature is normal. IMPRESSION: Negative chest. ACT 112: Negative or not required by law. The above report was generated using voice recognition software. It may contain grammatical, syntax or spelling errors. Electronically signed by: Alfred Mercado M.D. 12/01/2019 11:27 AM Dictated: 12/01/19 1127 Transcribed: 12/01/19 112 XR femur LT 2V routine CLINICAL HISTORY: pain COMPARISON: None. DISCUSSION: The bones and joint spaces appear intact. There is no evidence of fracture, dislocation or bony disease. There is no evidence for soft tissue swelling. IMPRESSION: Negative study. ACT 112: Negative or not required by law. The above report was generated using voice recognition software. It may contain grammatical, syntax or spelling errors. Electronically signed by: Alfred Mercado M.D. 12/01/2019 11:29 AM Dictated: 12/01/19 1128 Transcribed: 12/01/[address] head/brain wo con CT DOSE: 1228.53 mGy.cm HISTORY: Mental status change brief unresponsiveness TECHNIQUE: Multiaxial CT images of the head were performed without the use of intravenous contrast. A dose lowering technique was utilized adhering to the principles of ALARA. Comparison: None. Findings: The paranasal sinuses and mastoid air cells are clear. The calvarium and skull base are intact. The ventricles and sulci are within normal limits. There is no mass, hematoma, midline shift, or acute infarct. There are findings of significant chronic small vessel change throughout both cerebral hemispheres. This is also seen in the left central sarabjit. All findings are unchanged from the prior study. Impression: Chronic and age-related change. No acute process. No change from the prior exam. ACT 112: Negative or not required by law. The above report was generated using voice recognition software. It may contain grammatical, syntax or spelling errors. Electronically signed by: Alfred Mercado M.D. 12/01/2019 11:06 AM Dictated: 12/01/19 1105 Transcribed: 12/01/191104 XR hip LT 2V w pelvis CLINICAL HISTORY: pain pain COMPARISON: None. DISCUSSION: The bones and joint spaces appear intact. There is no evidence of fracture, dislocation or bony disease. Mild degenerative narrowing of hip joint spaces bilaterally. IMPRESSION: Mild degenerative change. No acute process. ACT 112: Negative or not required by law. The above report was generated using voice recognition software. It may contain grammatical, syntax or spelling errors. Electronically signed by: Alfred Mercado M.D. 12/01/2019 11:28 AM Dictated: 12/01/19 1128 Transcribed: 12/01/191127 US extremity non-vascular ltd CLINICAL HISTORY: LLE swelling thigh, INR supra therapeutic pain. Mass. Edema. COMPARISON STUDY: No previous studies for comparison. FINDINGS: Ultrasound evaluation of the anterior left thigh confirms the presence of a complex intramuscular collection. This measures 7.5 x 3.5 x 3.0 cm. Is suggestive of a potential hematoma. No additional findings are present. IMPRESSION: Area of palpable edema/nodularity appears to represent a complex hematoma. This appears to be intramuscular in location, with maximum dimensions of 7.5 x 3.5 x 3.0 cm. ACT 112: Negative or not required by law. The above report was generated using voice recognition software. It may contain grammatical, syntax or spelling errors. Electronically signed by: Alfred Mercado M.D. 12/01/2019 3:38 PM Dictated: 12/01/19 1534 Transcribed: 12/01/19 153 Cardiac monitoring: An order was placed for continuous cardiac monitoring. The monitor shows a rate of 75 with sinus rhythm. MDM: Patient was seen due to concern for brief episode of unresponsiveness left leg pain and hypotension. BP upon arrival is improved. BSG prior to arrival was in the 200s. Blood work was obtained along with an EKG. Additional x-rays and CT head were also performed. Of note the patient is on Coumadin. Patient has a normal white count. Hemoglobin at 12. Patient did have an elevated INR and was given vitamin K. Initial lactate greater than 3 he did receive some IV fluids. Calcium and magnesium are low. Order for replacement. CT of the head is negative. X-ray is also negative. Patient CT of the head is unremarkable. Ultrasound was obtained shows that the patient does have a possible hematoma. Patient also did receive vitamin K. I did speak the on-call hospitalist Dr. Meyers. Past Med/Surg History Medical History Aortic valve stenosis (Chronic) CAD (coronary artery disease) (Chronic) Carotid stenosis (Chronic) Dyslipidemia (Chronic) Hemiplegia affecting right dominant side (Chronic) HTN (hypertension) (Chronic) Monoplegia affecting right dominant side (Chronic) Obesity (Chronic) Proliferative diabetic retinopathy (Chronic) Retinal edema (Chronic) Right foot drop (Chronic) Status post cerebrovascular accident (Chronic) Status post myocardial infarction (Chronic) Superior mesenteric artery stenosis (Chronic) Type 2 diabetes mellitus (Chronic) Surgical History Hx of vitrectomy (Acute) S/P angioplasty with stent (Chronic) S/P CABG x 3 (Chronic) S/P PTCA (percutaneous transluminal coronary angioplasty) (Chronic) Family History Father Heart disease Social History Preferred Language: Bengali Communication Ability: Effective Visual Impairment: No Limitations Hearing Ability: Normal Author Agent Required: No Beliefs That Will Affect Care: None marital status: Current Living Situation: Spouse Current Living Situation Comment: own home current occupational status: disabled Feels Safe at Home: Yes Smoking Status: Unknown if ever smoked Hx Alcohol Use: No Hx Substance Use: No Allergies Allergies Allergy/AdvReac Type Severity Reaction Status Date / Time No Known Allergies Allergy Verified 12/01/19 10:46 Home Meds Home Medications Medication Instructions Recorded Confirmed atorvastatin 80 mg tablet 80 mg PO QPM 07/10/18 12/01/19 baclofen 5 mg tablet 5 mg PO QAM tab 07/10/18 12/01/19 carvedilol 12.5 mg tablet 12.5 mg PO BID 07/10/18 12/01/19 clopidogrel 75 mg tablet 75 mg PO QAM 07/10/18 12/01/19 insulin glargine 100 unit/mL 30 units SQ AMPM ml 07/10/18 12/01/19 subcutaneous solution lisinopril 40 mg tablet 40 mg PO QAM 07/10/18 12/01/19 metformin 1,000 mg tablet 1,000 mg PO BID 07/10/18 12/01/19 insulin aspart U-100 [Novolog 14 unit SUBCUT ACHS 09/08/18 12/01/19 U-100 Insulin aspart] aspirin 162 mg PO DAILY 08/09/19 12/01/19 nitroglycerin 0.4 mg SUBLINGUAL UD 08/09/19 12/01/19 warfarin [Coumadin] 7.5 mg PO QAM 08/09/19 12/01/19 Results & Data (ED) Vital Signs Vital Signs - 24 hr 12/01/19 09:56 12/01/19 10:00 12/01/19 10:30 Temperature 37.0 C Temperature Source Oral Pulse Rate 68 69 70 Pulse Rate [Apical] Pulse Rate from SpO2 Sensor 68 69 Respiratory Rate 20 16 21 Respiratory Effort / Characteristics Non-Labored Spontaneous Respiratory Depth Normal Blood Pressure 122/62 129/61 116/57 L Blood Pressure [Left Arm] Blood Pressure Mean 67 91 66 Blood Pressure Mean [Left Arm] Pulse Oximetry 98 98 95 Oxygen Delivery Method Room Air Room Air Room Air Sepsis Recent Fever Within 48 Hours No Sepsis New/Unexplained Change in Mental Status No Sepsis Action Taken by Nursing No Action Required 12/01/19 10:45 12/01/19 11:33 12/01/19 12:00 Temperature Temperature Source Pulse Rate 78 74 74 Pulse Rate [Apical] Pulse Rate from SpO2 Sensor 74 75 Respiratory Rate 23 16 18 Respiratory Effort / Characteristics Respiratory Depth Blood Pressure 120/73 116/56 L 109/60 Blood Pressure [Left Arm] Blood Pressure Mean 94 67 80 Blood Pressure Mean [Left Arm] Pulse Oximetry 96 98 98 Oxygen Delivery Method Room Air Room Air Room Air Sepsis Recent Fever Within 48 Hours Sepsis New/Unexplained Change in Mental Status Sepsis Action Taken by Nursing 12/01/19 12:23 12/01/19 12:30 12/01/19 13:00 Temperature Temperature Source Pulse Rate 85 94 H Pulse Rate [Apical] 80 Pulse Rate from SpO2 Sensor 84 95 H Respiratory Rate 16 20 20 Respiratory Effort / Characteristics Respiratory Depth Blood Pressure 130/65 127/91 Blood Pressure [Left Arm] 109/60 Blood Pressure Mean 80 106 Blood Pressure Mean [Left Arm] 76 Pulse Oximetry 98 97 99 Oxygen Delivery Method Room Air Room Air Room Air Sepsis Recent Fever Within 48 Hours Sepsis New/Unexplained Change in Mental Status Sepsis Action Taken by Nursing 12/01/19 13:14 12/01/19 13:30 12/01/19 14:00 Temperature Temperature Source Pulse Rate 91 H 91 H 90 Pulse Rate [Apical] Pulse Rate from SpO2 Sensor 91 H 88 Respiratory Rate 25 H 18 16 Respiratory Effort / Characteristics Respiratory Depth Blood Pressure 133/75 131/78 148/77 H Blood Pressure [Left Arm] Blood Pressure Mean 104 93 114 Blood Pressure Mean [Left Arm] Pulse Oximetry 98 96 95 Oxygen Delivery Method Room Air Room Air Room Air Sepsis Recent Fever Within 48 Hours Sepsis New/Unexplained Change in Mental Status Sepsis Action Taken by Nursing 12/01/19 14:30 12/01/19 14:44 Temperature Temperature Source Pulse Rate 93 H 90 Pulse Rate [Apical] Pulse Rate from SpO2 Sensor 95 H Respiratory Rate 22 23 Respiratory Effort / Characteristics Respiratory Depth Blood Pressure 175/98 H 166/104 H Blood Pressure [Left Arm] Blood Pressure Mean 113 124 Blood Pressure Mean [Left Arm] Pulse Oximetry 95 98 Oxygen Delivery Method Room Air Room Air Sepsis Recent Fever Within 48 Hours Sepsis New/Unexplained Change in Mental Status Sepsis Action Taken by Custodial Medications Current Medication List: was personally reviewed by me Laboratory Data Attestation: I reviewed the patient's lab results. Result diagrams: 12/01/19 10:20 12/01/19 10:20 Lab Results 12/01/19 12/01/19 12/01/19 Range/Units 10:20 10:20 10:20 WBC 9.60 (4.8-10.8) K/uL RBC 4.64 L (4.7-6.1) M/uL Hgb 12.1 L (14.0-18.0) g/dL Hct 37.2 L (42-52) % MCV 80.2 (80-100) fL MCH 26.1 (25-34) pg MCHC 32.5 (32-36) g/dL RDW Std Deviation 41.2 (36.4-46.3) fL RDW Coeff of Caroline 14.3 (11.5-14.5) % Plt Count 235 (130-400) K/uL MPV 10.8 H (7.4-10.4) fL Immature Gran % (Auto) 0.3 % Neut % (Auto) 75.6 % Lymph % (Auto) 16.4 % [place] % (Auto) 6.1 % Eos % (Auto) 1.4 % Baso % (Auto) 0.2 % Neut # (Auto) 7.26 H (1.4-6.5) K/uL Lymph # (Auto) 1.57 (1.2-3.4) K/uL [place] # (Auto) 0.59 (0.11-0.59) K/uL Eos # (Auto) 0.13 (0-0.5) K/uL Baso # (Auto) 0.02 (0-0.2) K/uL Immature Gran # (Auto) 0.03 H (0.00-0.02) K/uL PT > 90.0 H (9.0-12.0) Seconds INR > 9.7 H* (0.9-1.1) APTT 59.6 H* (21.0-31.0) Seconds PTT Ratio 2.1 Sodium 143 (136-145) mmol/L Potassium 4.2 (3.5-5.1) mmol/L Chloride 111 H (98-107) mmol/L Carbon Dioxide 24 (21-32) mmol/L Anion Gap 8.0 (3-11) BUN 19 H (7-18) mg/dl Creatinine 1.11 (0.6-1.4) mg/dl Est Cr Clr Drug Dosing Not Reportable Est GFR ( Amer) 82.6 Est GFR (Non-Af Amer) 71.3 BUN/Creatinine Ratio 17.1 (10-20) Glucose 177 H (70-99) mg/dl Lactate (0.4-2.0) mmol/L Calcium 8.4 L (8.5-10.1) mg/dl Magnesium 1.4 L (1.8-2.4) mg/dl Total Bilirubin 0.3 (0.2-1) mg/dl AST 11 L (15-37) U/L ALT 19 (12-78) U/L Alkaline Phosphatase 62 (45-117) U/L Troponin I 0.018 (0-0.045) ng/ml Total Protein 7.0 (6.4-8.2) gm/dl Albumin 3.1 L (3.4-5.0) gm/dl Globulin 3.9 (2.5-4.0) gm/dl Albumin/Globulin Ratio 0.8 L (0.9-2) TSH 2.720 (0.300-4.500) uIu/ml Urine Color Urine Appearance (Clear) Urine pH (4.5-7.5) Ur Specific [place] (1.000-1.030) Urine Protein (Negative) Urine Glucose (UA) (Negative) Urine Ketones (Negative) Urine Blood (Negative) Urine Nitrite (Negative) Urine Bilirubin (Negative) Urine Urobilinogen (Negative) Ur Leukocyte Esterase (Negative) 12/01/19 12/01/19 12/01/19 Range/Units 10:20 10:45 13:27 WBC (4.8-10.8) K/uL RBC (4.7-6.1) M/uL Hgb (14.0-18.0) g/dL Hct (42-52) % MCV (80-100) fL MCH (25-34) pg MCHC (32-36) g/dL RDW Std Deviation (36.4-46.3) fL RDW Coeff of Caroline (11.5-14.5) % Plt Count (130-400) K/uL MPV (7.4-10.4) fL Immature Gran % (Auto) % Neut % (Auto) % Lymph % (Auto) % [place] % (Auto) % Eos % (Auto) % Baso % (Auto) % Neut # (Auto) (1.4-6.5) K/uL Lymph # (Auto) (1.2-3.4) K/uL [place] # (Auto) (0.11-0.59) K/uL Eos # (Auto) (0-0.5) K/uL Baso # (Auto) (0-0.2) K/uL Immature Gran # (Auto) (0.00-0.02) K/uL PT (9.0-12.0) Seconds INR (0.9-1.1) APTT (21.0-31.0) Seconds PTT Ratio Sodium (136-145) mmol/L Potassium (3.5-5.1) mmol/L Chloride (98-107) mmol/L Carbon Dioxide (21-32) mmol/L Anion Gap (3-11) BUN (7-18) mg/dl Creatinine (0.6-1.4) mg/dl Est Cr Clr Drug Dosing Est GFR ( Amer) Est GFR (Non-Af Amer) BUN/Creatinine Ratio (10-20) Glucose (70-99) mg/dl Lactate 3.5 H* 2.7 H* (0.4-2.0) mmol/L Calcium (8.5-10.1) mg/dl Magnesium (1.8-2.4) mg/dl Total Bilirubin (0.2-1) mg/dl AST (15-37) U/L ALT (12-78) U/L Alkaline Phosphatase (45-117) U/L Troponin I (0-0.045) ng/ml Total Protein (6.4-8.2) gm/dl Albumin (3.4-5.0) gm/dl Globulin (2.5-4.0) gm/dl Albumin/Globulin Ratio (0.9-2) TSH (0.300-4.500) uIu/ml Urine Color Yellow Urine Appearance Clear (Clear) Urine pH 5.0 (4.5-7.5) Ur Specific [place] 1.018 (1.000-1.030) Urine Protein Negative (Negative) Urine Glucose (UA) Negative (Negative) Urine Ketones Negative (Negative) Urine Blood Negative (Negative) Urine Nitrite Negative (Negative) Urine Bilirubin Negative (Negative) Urine Urobilinogen Negative (Negative) Ur Leukocyte Esterase Negative (Negative) Administered Medications Discontinued Medications Sodium Chloride (Nss) 500 mls @ 999 mls/hr IV .Q31M SUMA Stop: 12/01/19 10:30 Last Infusion: 12/01/19 10:45 Dose: 0 mls/hr Documented by: [id number] Admin: 12/01/19 10:09 Dose: 999 mls/hr Documented by: [id number] Phytonadione 10 mg/ Sodium (Chloride) 51 mls @ 102 mls/hr IV ONE ONE Stop: 12/01/19 11:49 Last Infusion: 12/01/19 12:22 Dose: 0 mls/hr Documented by: [id number] Admin: 12/01/19 11:51 Dose: 102 mls/hr Documented by: [id number] Magnesium Sulfate/Dextrose (Magnesium Sulfate / D5w) 1 gm in 100 mls @ 100 mls/hr IV NOW STA Stop: 12/01/19 12:24 Last Infusion: 12/01/19 13:38 Dose: 0 mls/hr Documented by: [id number] Admin: 12/01/19 12:23 Dose: 100 mls/hr Documented by: [id number] Calcium Gluconate 1,000 mg/ (Sodium Chloride) 60 mls @ 240 mls/hr IV NOW STA Stop: 12/01/19 11:39 Last Infusion: 12/01/19 12:15 Dose: 0 mls/hr Documented by: [id number] Admin: 12/01/19 11:51 Dose: 240 mls/hr Documented by: [id number] Sodium Chloride (Nss 1000ml) 500 mls @ 999 mls/hr IV .Q31M ONE Stop: 12/01/19 12:51 Last Infusion: 12/01/19 13:13 Dose: 0 mls/hr Documented by: [id number] Admin: 12/01/19 12:23 Dose: 999 mls/hr Documented by: [id number] Discharge Plan Visit Data Chief Complaint: Syncope ED Provider: Vinnie Robison Discharge Problem: Acute dehydration, Supratherapeutic INR, Hematoma of left thigh Patient Disposition: Home - Self-Care Condition: Good Discharge Instructions Gerry/Other Patient Handouts: Dehydration Activity Restrictions/Additional Instructions: Please return to the emergency department if you have worsening or recurrent s ymptoms not amenable to at-home treatment. Please call for a follow-up appointment with her primary care physician. Please take your medications as prescribed. If you have other concerns and/or complaints please feel free to also call your primary care physician's office or return the ED for further evaluation, management, and treatment. Take your medications as prescribed. You have been examined and treated today on an emergency basis only. This is not a substitute for, or an effort to provide, complete comprehensive medical care. It is impossible to recognize and treat all injuries or illnesses in a single emergency department visit. It is therefore important that you follow up closely with [facility], your PCP, and/or your specialist(s). Call as soon as possible for an appointment. Thank you for your time and consideration. I look forward to speaking with you again soon. Please don't hesitate to call us if you have any questions. Forms Stand Alone Forms: My [facility], Virtual Emergency Department, Important Visit Information Prescriptions Prescriptions: No Action carvedilol 12.5 mg tablet 12.5 mg PO BID RF: 0 insulin glargine [Lantus U-100 Insulin] 100 unit/mL solution 30 units SQ AMPM RF: 0 clopidogrel [Plavix] 75 mg tablet 75 mg PO QAM RF: 0 atorvastatin [Lipitor] 80 mg tablet 80 mg PO QPM RF: 0 lisinopril 40 mg tablet 40 mg PO QAM RF: 0 metformin 1,000 mg tablet 1,000 mg PO BID RF: 0 baclofen 5 mg tablet 5 mg PO QAM RF: 0 insulin aspart U-100 [Novolog U-100 Insulin aspart] 100 unit/mL Solution 14 unit SUBCUT ACHS RF: 0 warfarin [Coumadin] 7.5 mg tablet 7.5 mg PO QAM RF: 0 nitroglycerin 0.4 mg tablet, sublingual 0.4 mg sublingual UD RF: 0 aspirin 81 mg Tablet,Chewable 162 mg PO DAILY RF: 0 Referrals Referrals: Dereck Zaman DO [Primary Care Provider] - Discharge Problem: Hematoma of left thigh Qualifiers: Encounter type: initial encounter Qualified Code(s): S70.12XA - Contusion of left thigh, initial encounter
[2019-12-01] MEDS ORDERED: SODIUM CHLORIDE 0.9% 500 ML IV SCH (10:00)
[2019-12-01 10:36] LABS: Basophils # (auto) 0.02 K/uL (0-0.2); Basophils % (auto) 0.2 %; Eosinophils # (auto) 0.13 K/uL (0-0.5); Eosinophils % (auto) 1.4 %; Hematocrit (blood only) 37.2 % (42-52); Hemoglobin 12.1 g/dL (14.0-18.0); Immature Granulocytes # (auto) 0.03 K/uL (0.00-0.02); Immature Granulocytes % (auto) 0.3 %; Lymphocytes # (auto) 1.57 K/uL (1.2-3.4); Lymphocytes % (auto) 16.4 %; Mean Corpuscular Hemoglobin 26.1 pg (25-34); Mean Corpuscular Hgb Conc 32.5 g/dL (32-36); Mean Corpuscular Volume 80.2 fL (80-100); Mean Platelet Volume 10.8 fL (7.4-10.4); Monocytes # (auto) 0.59 K/uL (0.11-0.59); Monocytes % (auto) 6.1 %; Neutrophils # (auto) 7.26 K/uL (1.4-6.5); Neutrophils % (auto) 75.6 %; Platelet Count 235 K/uL (130-400); RDW Coefficient of Variation 14.3 % (11.5-14.5); RDW Standard Deviation 41.2 fL (36.4-46.3); Red Blood Count 4.64 M/uL (4.7-6.1)
[2019-12-01 10:52] LABS: Alanine Aminotransferase 19 U/L (12-78); Albumin Level 3.1 gm/dl (3.4-5.0); Aspartate Aminotransferase 11 U/L (15-37); BUN Creatinine Ratio 17.1 (10-20); Blood Urea Nitrogen 19 mg/dl (7-18); Calcium 8.4 mg/dl (8.5-10.1); Carbon Dioxide 24 mmol/L (21-32); Chloride 111 mmol/L (98-107); Est GFR (African American) 82.6; Est GFR (Non-African American) 71.3; Glucose 177 mg/dl (70-99); Magnesium 1.4 mg/dl (1.8-2.4); Potassium 4.2 mmol/L (3.5-5.1); Sodium 143 mmol/L (136-145)
--- NOTE | 2019-12-01 11:01 | Electrocardiogram Report ---
Test Reason : Blood Pressure : / mmHG Vent. Rate : 075 BPM Atrial Rate : 075 BPM P-R Int : 160 ms QRS Dur : 086 ms QT Int : 408 ms P-R-T Axes : 067 056 119 degrees QTc Int : 455 ms Normal sinus rhythm Possible Left atrial enlargement Inferior infarct (cited on or before 13-OCT-2006) possible Anterolateral infarct (cited on or before 13-OCT-2006) Abnormal ECG When compared with ECG of 09-AUG-2019 11:17, No significant change was found Confirmed by Tucker Pollard ([id number]) on 12/01/2019 11:00:42 AM Referred By: REFERRED SELF Confirmed By:Bryon Pollard
[2019-12-01 11:03] LABS: Albumin Globulin Ratio 0.8 (0.9-2); Alkaline Phosphatase 62 U/L (45-117); Bilirubin,Total 0.3 mg/dl (0.2-1); Globulin 3.9 gm/dl (2.5-4.0); Partial Thromboplastin Ratio 2.1; Prothrombin Time > 90.0 Seconds (9.0-12.0); Troponin I 0.018 ng/ml (0-0.045)
--- NOTE | 2019-12-01 11:07 | CT Scan Report ---
CT head/brain wo con CT DOSE: 1228.53 mGy.cm HISTORY: Mental status change brief unresponsiveness TECHNIQUE: Multiaxial CT images of the head were performed without the use of intravenous contrast. A dose lowering technique was utilized adhering to the principles of ALARA. Comparison: None. Findings: The paranasal sinuses and mastoid air cells are clear. The calvarium and skull base are int act. The ventricles and sulci are within normal limits. There is no mass, hematoma, midline shift, or acute infarct. There are findings of significant chronic small vessel change throughout both cerebra l hemispheres. This is also seen in the left central sarabjit. All findings are unchanged from the prior study. Impression: Chronic and age-related change. No acute process. No change from the prior exam. ACT 112: Negative or not required by law. The above report was generated using voice recognition software. It may contain grammatical, syntax or spelling errors. Electronically signed by: Alfred Mercado M.D. 12/01/2019 11:06 AM
[2019-12-01 11:13] LABS: Appearance Urine Clear (Clear); Bilirubin Urine Negative (Negative); Blood Urine Negative (Negative); Color Urine Yellow; Glucose Urine UA Negative (Negative); Ketones Urine Negative (Negative); Leukocyte Esterase Urine Negative (Negative); Nitrite Urine Negative (Negative); Protein Urine Negative (Negative); Specific Gravity Urine 1.018 (1.000-1.030); Urobilinogen Urine Negative (Negative)
[2019-12-01 11:18] LABS: INR > 9.7 (0.9-1.1); Partial Thromboplastin Time 59.6 Seconds (21.0-31.0)
[2019-12-01] MEDS ORDERED: PHYTONADIONE 10 MG in SODIUM CHLORIDE 0.9% 50 ML IV ONE (11:20)
[2019-12-01] MEDS ORDERED: CALCIUM GLUCONATE 10% 1,000 MG in SODIUM CHLORIDE 0.9% 50 ML IV STA (11:25)
[2019-12-01] MEDS ORDERED: MAGNESIUM SULFATE / D5W 1 GM/100 ML BAG IV STA (11:25)
--- NOTE | 2019-12-01 11:29 | XRay Report ---
XR chest 1V not portable CLINICAL HISTORY: weakness COMPARISON STUDY: 12/18/2018 FINDINGS: The bones soft tissues and hemidiaphragms are normal. The cardiomediastinal silhouette is n ormal. The lungs are clear. The pulmonary vasculature is normal. IMPRESSION: Negative chest. ACT 112: Negative or not required by law. The above report was generated using voice recognition software. It may contain grammatical, syntax or spelling errors. Electronically signed by: Alfred Mercado M.D. 12/01/2019 11:27 AM
--- NOTE | 2019-12-01 11:30 | XRay Report ---
XR femur LT 2V routine CLINICAL HISTORY: pain COMPARISON: None. DISCUSSION: The bones and joint spaces appear intact. There is no evidence of fracture, dislocation o r bony disease. There is no evidence for soft tissue swelling. IMPRESSION: Negative study. ACT 112: Negative or not required by law. The above report was generated using voice recognition software. It may contain grammatical, syntax or spelling errors. Electronically signed by: Alfred Mercado M.D. 12/01/2019 11:29 AM
--- NOTE | 2019-12-01 11:30 | XRay Report ---
XR hip LT 2V w pelvis CLINICAL HISTORY: pain pain COMPARISON: None. DISCUSSION: The bones and joint spaces appear intact. There is no evidence of fracture, dislocation o r bony disease. Mild degenerative narrowing of hip joint spaces bilaterally. IMPRESSION: Mild degenerative change. No acute process. ACT 112: Negative or not required by law. The above report was generated using voice recognition software. It may contain grammatical, syntax or spelling errors. Electronically signed by: Alfred Mercado M.D. 12/01/2019 11:28 AM
[2019-12-01] MEDS ORDERED: SODIUM CHLORIDE 0.9% 1000ML 500 ML IV ONE (12:21)
[2019-12-01] MEDS ORDERED: ACETAMINOPHEN 325 MG TAB PO PRN (15:35)
[2019-12-01] MEDS ORDERED: POLYETHYLENE (MIRALAX) 17 GM PACK PO PRN (15:35)
[2019-12-01] MEDS ORDERED: ONDANSETRON INJ 2 MG/ML 2 ML VIAL IV PRN (15:35)
[2019-12-01] MEDS ORDERED: NITROGLYCERIN SL 0.4 MG/TAB TAB SL PRN ×2 (15:35→17:33)
[2019-12-01] MEDS ORDERED: ALUMINUM/MAGNESIUM SUSP 30 ML UDC PO PRN (15:35)
[2019-12-01] MEDS ORDERED: MAGNESIUM HYDROXIDE SUSP 30 ML UDC PO PRN (15:35)
--- NOTE | 2019-12-01 15:39 | Ultrasound Report ---
US extremity non-vascular ltd CLINICAL HISTORY: LLE swelling thigh, INR supra therapeutic pain. Mass. Edema. COMPARISON STUDY: No previous studies for comparison. FINDINGS: Ultrasound evaluation of the anterior left thigh confirms the presence of a complex intramu scular collection. This measures 7.5 x 3.5 x 3.0 cm. Is suggestive of a potential hematoma. No additional findings are present. IMPRESSION: Area of palpable edema/nodularity appears to represent a complex hematoma. This appears to be intramuscular in location, with maximum dimensions of 7.5 x 3.5 x 3.0 cm. ACT 112: Negative or not required by law. The above report was generated using voice recognition software. It may contain grammatical, syntax or spelling errors. Electronically signed by: Alfred Mercado M.D. 12/01/2019 3:38 PM
--- NOTE | 2019-12-01 16:55 | History & Physical Report ---
Date of Service December 01, 2019 Assessment & Plan (1) Hematoma of left thigh: Left upper thigh spontaneous 7 cm hematoma possible secondary to supratherapeutic INR Patient denies of any recent fall or trauma Anticoagulation kept on hold-to allow spontaneous resolution of hematoma No sign of sepsis, no fever or chills H&H remained stable Continue to monitor Elevated lactic acid: No evidence of sepsis, no fever chills, no evidence of infection on chest x-ray Possible secondary to large underlying hematoma? Ordered for gentle IV fluids, Repeat lactic acid level in 4 hours, no indication for antibiotic treatment (2) Supratherapeutic INR: INR 9.7 possibly causing left thigh spontaneous hematoma coumadin /dual antiplatelets ( Aspirin 164 mg /Palvix ) on hold follow INR daily (3) H/O: CVA (cerebrovascular accident): Cerebral vascular disease status post bilateral frontal infarctions on 05/30/2015 while on dual anti-platelet therapy with aspirin and clopidogrel, prompting initiation of warfarin , recurrent stroke 11/2017 presented with INR> 9 dual antiplatelets and coumadin kept on hold given high risk for CVA , anticoagulation needs to be resumed when INR < 3 (4) Type 2 diabetes mellitus: insulin SSI (5) HTN (hypertension): BP stable cont out pt meds AMBULATORY DYSFUNCTION : worsening of weakness /gait disturbance due to acute illness PT OT evaluation Patient is already active with outpatient physical therapy center for twice a week CODE STATUS: Full code DVT prophylaxis: INR elevated Disposition: Expected to be discharged home when medically stable History of Present Illness Chief Complaint: Generalized weakness, left thigh pain, elevated INR Primary Care Provider: Dereck Zaman, DO Pt is 59 y/o M with PMH CAD s/p CABG x 3, insulin dependent DM II, severe aortic stenosis, hx of recurrent CVA while on dual anti[place] , on Coumadin for anticoagulation Right foot drop, bilateral carotid stenosis, HTN, HLD, SMA stenosis-brought to the ER , due to symptoms of generalized weakness, dizzy spell lightheadedness presyncope, left thigh pain started this morning. At baseline patient has right-sided weakness/ambulatory dysfunction secondary to prior CVA, Independent in his ADLs This morning patient woke up not feeling well, felt dizzy and lightheaded, generalized weakness, needed assistance from his to sit up at the edge of bed, which is uncommon Had a throbbing pain on left upper thigh, no recent trauma or fall Feels nauseous, Not had any facial droop, no dysarthria no worsening of weakness or paresthesia in any extremities, Vomited twice prior to coming to ER Denies of any chest pain, no shortness breath or palpitation In the ER patient's vitals were stable Lab abnormalities: INR 9.7, Elevated lactic acid more than 2, No report of fever chills, no cough or shortness of breath, no diarrhea or loose stool, no blood in stool, no epistaxis or hematemesis Allergies Allergy/AdvReac Type Severity Reaction Status Date / Time No Known Allergies Allergy Verified 12/01/19 10:46 Home Medications Home Medications Medication Instructions Recorded Confirmed Type atorvastatin 80 mg tablet 80 mg PO QPM 07/10/18 12/01/19 History baclofen 5 mg tablet 5 mg PO QAM tab 07/10/18 12/01/19 History carvedilol 12.5 mg tablet 12.5 mg PO BID 07/10/18 12/01/19 History clopidogrel 75 mg tablet 75 mg PO QAM 07/10/18 12/01/19 History insulin glargine 100 unit/mL 30 units SQ AMPM ml 07/10/18 12/01/19 History subcutaneous solution lisinopril 40 mg tablet 40 mg PO QAM 07/10/18 12/01/19 History metformin 1,000 mg tablet 1,000 mg PO BID 07/10/18 12/01/19 History insulin aspart U-100 [Novolog 14 unit SUBCUT ACHS 09/08/18 12/01/19 History U-100 Insulin aspart] aspirin 162 mg PO DAILY 08/09/19 12/01/19 History nitroglycerin 0.4 mg SUBLINGUAL UD 08/09/19 12/01/19 History warfarin [Coumadin] 7.5 mg PO QAM 08/09/19 12/01/19 History Past Med/Surg History Medical History Aortic valve stenosis (Chronic) CAD (coronary artery disease) (Chronic) Carotid stenosis (Chronic) Dyslipidemia (Chronic) Hemiplegia affecting right dominant side (Chronic) HTN (hypertension) (Chronic) Monoplegia affecting right dominant side (Chronic) Obesity (Chronic) Proliferative diabetic retinopathy (Chronic) Retinal edema (Chronic) Right foot drop (Chronic) Status post cerebrovascular accident (Chronic) Status post myocardial infarction (Chronic) Superior mesenteric artery stenosis (Chronic) Type 2 diabetes mellitus (Chronic) Surgical History Hx of vitrectomy (Acute) S/P angioplasty with stent (Chronic) S/P CABG x 3 (Chronic) S/P PTCA (percutaneous transluminal coronary angioplasty) (Chronic) Family History Father Heart disease Social History Preferred Language: Peruvian Communication Ability: Effective Visual Impairment: No Limitations Hearing Ability: Normal Knitting Tester Required: No Beliefs That Will Affect Care: None marital status: Current Living Situation: Spouse Current Living Situation Comment: own home current occupational status: disabled Feels Safe at Home: Yes Smoking Status: Unknown if ever smoked Hx Alcohol Use: No Hx Substance Use: No Review of Systems Review of Systems: All systems reviewed & are unremarkable except as noted in HPI & below Respiratory: no cough, no dyspnea, no dyspnea on exertion, no hemoptysis, no sputum production and no wheezing Gastrointestinal: + nausea and + vomiting; no abdominal pain, no hematemesis, no diarrhea/loose stools and no blood in stools Genitourinary: no dysuria and no hematuria Musculoskeletal: Left upper thigh pain Neurologic: + unsteadiness and + generalized weakness; no localized weakness, no syncope, no headache(s) and no abnormal speech Physical Exam Constitutional: WD/WN, vitals as above no acute distress Eyes: PERRL, conjunctivae normal, anicteric sclerae ENMT: external ear and nose normal, oropharynx normal Neck: trachea midline, no thyromegaly Respiratory: normal respiratory effort, lungs clear to auscultation Cardiovascular: RRR, no murmur, no edema Gastrointestinal (Abdomen): Inspection/Auscultation: normal bowel sounds Percussion/Palpation: abdomen soft; abdomen nontender Musculoskeletal: Tenderness on the left upper thigh, no overlying skin ch anges, no injuries, no petechiae noted Skin: no rashes, no lesions and no wound Neurologic: PERRL, EOMI, accommodation nl, no face palsy, no dysarthria Chronic left-sided weakness from prior CVA Psychiatric: A+Ox3, euthymic affect Results & Data Results & Data ([facility]) Vital Signs (Past 12 Hours) Vital Signs Temp Pulse Pulse Resp BP BP Pulse Ox 12/01/19 16:30 88 21 143/79 H 12/01/19 16:00 89 21 125/74 12/01/19 15:40 94 H 24 127/64 12/01/19 15:00 80 19 129/65 98 12/01/19 14:44 90 23 166/104 H 98 12/01/19 14:30 93 H 22 175/98 H 95 12/01/19 14:00 90 16 148/77 H 95 12/01/19 13:30 91 H 18 131/78 96 12/01/19 13:14 91 H 25 H 133/75 98 12/01/19 13:00 94 H 20 127/91 99 12/01/19 12:30 85 20 130/65 97 12/01/19 12:23 80 16 109/60 98 12/01/19 12:00 74 18 109/60 98 12/01/19 11:33 74 16 116/56 L 98 12/01/19 10:45 78 23 120/73 96 12/01/19 10:30 70 21 116/57 L 95 12/01/19 10:00 69 16 129/61 98 12/01/19 09:56 37.0 C 68 20 122/62 98 Diagnostic Findings Left lower extremity nonvascular ultrasound: IMPRESSION: Area of palpable edema/nodularity appears to represent a complex hematoma. This appears to be intramuscular in location, with maximum dimensions of 7.5 x 3.5 x 3.0 cm. X-ray of left hip 2 views IMPRESSION: Mild degenerative change. No acute process. Chest x-ray: FINDINGS: The bones soft tissues and hemidiaphragms are normal. The cardiomediastinal silhouette is normal. The lungs are clear. The pulmonary vasculature is normal Code Status & VTE Plan VTE Prophylaxis Plan VTE Prophylaxis will be ordered: Yes (1) Hematoma of left thigh Encounter type: initial encounter Qualified Code(s): S70.12XA - Contusion of left thigh, initial encounter
[2019-12-01] MEDS ORDERED: CARBOHYDRATES FOR HYPOGLYCEMIA PO PRN (17:33)
[2019-12-01] MEDS ORDERED: GLUCOSE 40% GEL 15 GM TUBE PO PRN (17:33)
[2019-12-01] MEDS ORDERED: GLUCAGON FOR INJ 1 MG VIAL SQ PRN (17:33)
[2019-12-01] MEDS ORDERED: DEXTROSE 50% 50 ML SYRINGE IV PRN (17:33)
[2019-12-01] MEDS ORDERED: GLUCOSE 10 TABS/TUBE PO PRN (17:33)
[2019-12-01] MEDS ORDERED: SODIUM CHLORIDE 0.9% 1000ML 1,000 ML IV SCH (18:00)
[2019-12-01] MEDS ORDERED: MAGNESIUM SULFATE / D5W 1 GM/100 ML BAG IV SCH (18:00)
[2019-12-01] MEDS: INSULIN ASPART 100 UNITS/ML 3 ML PEN SC SCH ×2 (18:28→21:04)
[2019-12-01] MEDS: ATORVASTATIN 40 MG TAB PO SCH (20:56)
[2019-12-01] MEDS: carvediloL 12.5 MG TAB PO SCH (20:57)
[2019-12-01] MEDS: INSULIN GLARGINE SOLOSTAR 100 UNITS/ML 3 ML PEN SC SCH (21:03)
[2019-12-02 07:53] LABS: INR 1.3 (0.9-1.1); Prothrombin Time 13.9 Seconds (9.0-12.0)
[2019-12-02 08:22] LABS: BUN Creatinine Ratio 15.8 (10-20); Calcium 8.7 mg/dl (8.5-10.1); Creatinine Clr Calc Pharmacy 102.6 ml/min; Est GFR (African American) 110.1; Magnesium 1.8 mg/dl (1.8-2.4); Potassium 4.1 mmol/L (3.5-5.1)
[2019-12-02] MEDS: BACLOFEN 10 MG TAB PO SCH (08:52)
--- NOTE | 2019-12-02 08:52 | Hospitalist Progress Note ---
Date of Service December 02, 2019 Assessment & Plan (1) Hematoma of left thigh: Left upper thigh spontaneous 7 cm hematoma secondary to supratherapeutic INR Patient denies of any recent fall or trauma Anticoagulation kept on hold-to allow spontaneous resolution of hematoma No sign of sepsis, no fever or chills H&H remained stable Continue to monitor Elevated lactic acid: No evidence of sepsis, no fever chills, no evidence of infection on chest x-ray Possible secondary to large underlying hematoma? Ordered for gentle IV fluids, Repeat lactic acid level in 4 hours, no indication for antibiotic treatment (2) Supratherapeutic INR: INR 9.7 possibly causing left thigh spontaneous hematoma coumadin /dual antiplatelets ( Aspirin 164 mg /Palvix ) on hold follow INR daily (3) H/O: CVA (cerebrovascular accident): Cerebral vascular disease status post bilateral frontal infarctions on 05/30/2015 while on dual anti-platelet therapy with aspirin and clopidogrel, prompting initiation of warfarin , recurrent stroke 11/2017 presented with INR> 9 dual antiplatelets and coumadin kept on hold given high risk for CVA , anticoagulation needs to be resumed when INR < 3 (4) Type 2 diabetes mellitus: insulin SSI (5) HTN (hypertension): BP stable cont out pt meds AMBULATORY DYSFUNCTION : worsening of weakness /gait disturbance due to acute illness PT OT evaluation Patient is already active with outpatient physical therapy center for twice a week CODE STATUS: Full code DVT prophylaxis: INR elevated Disposition: Discharge home when medically stable ROS-No Headache, No Visual Changes, No Nausea, No Vomiting, No Fever, No Chills, No Neck Pain or Stiffness, No Chest Pain, No Palpitations, No SOB, No BUSTILLOS, No Cough, No Sputum, No Wheezing, No Abdominal Pain, No Diarrhea, No Hematemesis, No Hemoptysis, No Unexpected Weight Loss, No Flank pain, No Melena, No Hematochezia, No Frequency, No Urgency, No Burning, No Hematuria, No Rashes, No Diaphoresis. Appetite is Normal Physical Exam Gen-AAO x 3, NAD, Afebrile Head-NCAT, EOMI, PERRLA, Anicteric Sclera, No Posterior Pharyngeal Erythema Neck-Supple, No JVD, No Thyromegaly, No Masses, No LAD, No Bruits Lungs-Clear to Auscultation Bilaterally, No Rales, No Rhonchi, No Wheezing, No Crepitus Chest-No S4, +S1, +S2, No S3, No Murmurs, No Rubs, No Gallops, No Ectopy Abdomen-Soft, Bowel Sounds Present, Non Tender, Non Distended, No Hepatomegaly, No Splenomegaly, No Palpable Masses, No Rebound, No Rigidity, No Guarding Musculoskeletal-Full Range of Motion Bilaterally, No CVAT Extremities-No Cyanosis, No Clubbing, R Thigh Hematoma Nuero-Cranial Nerves II-XII grossly intact, Motor WNL, DTRs WNL, Strength WNL, Non Focal Psych-Normal Mood Admission and Anticipated Discharge Date Admission Date: December 01, 2019 Results & Data Results & Data ([facility]) Vital Signs (Past 12 Hours) Vital Signs Temp Pulse Pulse Resp BP Pulse Ox 12/02/19 07:55 36.9 C 82 18 150/68 H 97 12/02/19 03:13 36.8 C 80 18 181/90 H 97 12/02/19 00:00 91 H 12/01/19 23:02 37.3 C 86 18 160/83 H 97 (1) Hematoma of left thigh Encounter type: initial encounter Qualified Code(s): S70.12XA - Contusion of left thigh, initial encounter
[2019-12-02] MEDS: lisinopriL 40 MG TAB PO SCH (08:53)
[2019-12-02] MEDS: carvediloL 12.5 MG TAB PO SCH ×2 (08:53→20:47)
[2019-12-02] MEDS: INSULIN GLARGINE SOLOSTAR 100 UNITS/ML 3 ML PEN SC SCH ×2 (08:54→20:47)
[2019-12-02] MEDS: INSULIN ASPART 100 UNITS/ML 3 ML PEN SC SCH ×4 (08:55→20:50)
[2019-12-02 15:30] LABS: Base Excess ABG 3.9 mEq/L (-9-1.8); HCO3 ABG 27 mmol/L (19-24); Oxygen Saturation ABG 96.2 % (90-95); PCO2 ABG 37 mmHg (35-46); PO2 ABG 77 mmHg (80-95); pH ABG 7.49 (7.35-7.45)
[2019-12-02 15:31] LABS: Allen Test POS (Pos)
[2019-12-02 16:17] LABS: Appearance Urine Clear (Clear); Bilirubin Urine Negative (Negative); Blood Urine Negative (Negative); Color Urine Yellow; Glucose Urine UA 2+ (Negative); Ketones Urine Negative (Negative); Leukocyte Esterase Urine Negative (Negative); Nitrite Urine Negative (Negative); Protein Urine Negative (Negative); Specific Gravity Urine 1.012 (1.000-1.030); Urobilinogen Urine Negative (Negative)
--- NOTE | 2019-12-02 17:01 | CT Scan Report ---
HEAD CT NONCONTRAST CT DOSE: 614.27 mGy.cm HISTORY: Altered mental status. TECHNIQUE: Multiaxial CT images of the head were performed without the use of intravenous contrast. A utomated exposure control was utilized for this study. A dose lowering technique was utilized adheri ng to the principles of ALARA. Comparison: Head CT 12/01/2019. Findings: The paranasal sinuses and mastoid air cells are clear. The calvarium and skull base are int act. There is no mass, hematoma, midline shift, acute infarct. White matter hypodensity is nonspecifi c but suggestive of microvascular ischemic change. The ventricles and sulci demonstrate mild age-rela blank involutional changes. Mild motion artifact. Scattered old small infarcts are again noted. This re jose unchanged. Impression: No significant change compared to the prior study. No acute intracranial abnormality. Old infarcts ar e again noted. ACT 112: Negative or not required by law. Electronically signed by: Chris Bowens M.D. 12/02/2019 4:59 PM
[2019-12-02 17:24] LABS: Hematocrit (blood only) 35.2 % (42-52); Hemoglobin 11.5 g/dL (14.0-18.0); Mean Corpuscular Hemoglobin 26.3 pg (25-34); Mean Corpuscular Volume 80.5 fL (80-100); Mean Platelet Volume 10.7 fL (7.4-10.4); Platelet Count 242 K/uL (130-400); RDW Coefficient of Variation 13.9 % (11.5-14.5); Red Blood Count 4.37 M/uL (4.7-6.1); White Blood Count 8.08 K/uL (4.8-10.8)
[2019-12-02 17:27] LABS: Mean Corpuscular Hgb Conc 32.7 g/dL (32-36)
[2019-12-02 17:33] LABS: INR 1.4 (0.9-1.1); Prothrombin Time 14.4 Seconds (9.0-12.0)
[2019-12-02 17:42] LABS: Alanine Aminotransferase 18 U/L (12-78); Albumin Level 2.9 gm/dl (3.4-5.0); Aspartate Aminotransferase 12 U/L (15-37); BUN Creatinine Ratio 13.8 (10-20); Blood Urea Nitrogen 14 mg/dl (7-18); Calcium 8.3 mg/dl (8.5-10.1); Carbon Dioxide 29 mmol/L (21-32); Chloride 104 mmol/L (98-107); Creatinine Clr Calc Pharmacy 86.9 ml/min; Est GFR (African American) 96.1; Est GFR (Non-African American) 82.9; Glucose 212 mg/dl (70-99); Sodium 137 mmol/L (136-145)
[2019-12-02 17:47] LABS: Albumin Globulin Ratio 0.7 (0.9-2); Alkaline Phosphatase 63 U/L (45-117); Bilirubin,Total 0.5 mg/dl (0.2-1); Creatine Kinase 233 U/L (39-308); Total Protein 6.9 gm/dl (6.4-8.2); Troponin I < 0.015 ng/ml (0-0.045)
[2019-12-02] MEDS: AMLODIPINE BESYLATE 5 MG TAB PO SCH (17:47)
[2019-12-02] MEDS ORDERED: LORazepam 0.5 MG/1 ML VIAL IV STA (19:18)
[2019-12-02] MEDS ORDERED: LORazepam 2 MG/4 ML VIAL ONE (19:22)
[2019-12-02] MEDS: ATORVASTATIN 40 MG TAB PO SCH (20:48)
[2019-12-03 07:13] LABS: Hematocrit (blood only) 31.8 % (42-52); Hemoglobin 10.8 g/dL (14.0-18.0); Mean Corpuscular Hemoglobin 26.7 pg (25-34); Mean Corpuscular Volume 78.5 fL (80-100); Mean Platelet Volume 10.7 fL (7.4-10.4); Platelet Count 220 K/uL (130-400); RDW Coefficient of Variation 13.9 % (11.5-14.5); Red Blood Count 4.05 M/uL (4.7-6.1); White Blood Count 7.48 K/uL (4.8-10.8)
[2019-12-03 07:22] LABS: INR 1.5 (0.9-1.1); Prothrombin Time 15.5 Seconds (9.0-12.0)
[2019-12-03 07:43] LABS: BUN Creatinine Ratio 16.7 (10-20); Calcium 8.5 mg/dl (8.5-10.1); Creatinine Clr Calc Pharmacy 135.7 ml/min; Est GFR (African American) 119.5; Est GFR (Non-African American) 103.1; Potassium 3.8 mmol/L (3.5-5.1)
[2019-12-03 07:47] LABS: Troponin I 0.015 ng/ml (0-0.045)
--- NOTE | 2019-12-03 07:57 | Magnetic Resonance Report ---
Brain MRI WITHOUT CONTRAST HISTORY: Altered mental status. TECHNIQUE: Multiplanar multisequence MRI of the brain was performed without the use of contrast. COMPARISON STUDY: Head CT 11/24/2019. Brain MRI 11/19/2017. FINDINGS: Motion artifact results in suboptimal evaluation. No definite areas of restricted diffusion to suggest acute infarction. Moderate atrophy and moderate microvascular ischemic changes are noted. There are a few old small scattered infarcts seen within the bilateral basal ganglia, sarabjit, and bila teral cerebellar hemispheres. The paranasal sinuses demonstrate a small retention cyst within the rig ht maxillary sinus. The mastoid air cells are clear. The major vascular flow-voids at the skull base are well-maintained. No abnormal intra or extra-axial fluid collections. No definite mass, hematoma, midline shift. IMPRESSION: Suboptimal study due to motion artifact. No definite acute intracranial abnormality. ACT 112: Negative or not required by law. Electronically signed by: Chris Bowens M.D. 12/03/2019 7:56 AM
[2019-12-03] MEDS: AMLODIPINE BESYLATE 5 MG TAB PO SCH (08:25)
[2019-12-03] MEDS: BACLOFEN 10 MG TAB PO SCH (08:25)
[2019-12-03] MEDS: carvediloL 12.5 MG TAB PO SCH ×2 (08:25→21:42)
[2019-12-03] MEDS: lisinopriL 40 MG TAB PO SCH (08:25)
[2019-12-03] MEDS: INSULIN GLARGINE SOLOSTAR 100 UNITS/ML 3 ML PEN SC SCH ×2 (08:26→21:33)
[2019-12-03] MEDS: INSULIN ASPART 100 UNITS/ML 3 ML PEN SC SCH ×4 (08:27→21:33)
--- NOTE | 2019-12-03 08:43 | Hospitalist Progress Note ---
Date of Service December 03, 2019 Assessment & Plan (1) Hematoma of left thigh: Left upper thigh spontaneous 7 cm hematoma secondary to supratherapeutic INR Patient denies of any recent fall or trauma Anticoagulation kept on hold-to allow spontaneous resolution of hematoma No sign of sepsis, no fever or chills H&H remained stable Continue to monitor Elevated lactic acid: No evidence of sepsis, no fever chills, no evidence of infection on chest x-ray Possible secondary to large underlying hematoma? Ordered for gentle IV fluids, Repeat lactic acid level in 4 hours, no indication for antibiotic treatment (2) Supratherapeutic INR: INR 9.7 possibly causing left thigh spontaneous hematoma coumadin /dual antiplatelets ( Aspirin 164 mg /Palvix ) on hold follow INR daily (3) H/O: CVA (cerebrovascular accident): Cerebral vascular disease status post bilateral frontal infarctions on 05/30/2015 while on dual anti-platelet therapy with aspirin and clopidogrel, prompting initiation of warfarin recurrent stroke 11/2017 presented with INR> 9 dual antiplatelets and coumadin kept on hold given high risk for CVA , anticoagulation needs to be resumed today (4) Type 2 diabetes mellitus: insulin SSI (5) HTN (hypertension): BP stable cont out pt meds AMBULATORY DYSFUNCTION : worsening of weakness /gait disturbance due to acute illness PT OT evaluation Patient is already active with outpatient physical therapy center for twice a week Was very confused yesterday, w/u negative Resume Warfarin CODE STATUS: Full code DVT prophylaxis: Warfarin Disposition: Discharge home when medically stable, 1-2 days, PT/OT ROS-No Headache, No Visual Changes, No Nausea, No Vomiting, No Fever, No Chills, No Neck Pain or Stiffness, No Chest Pain, No Palpitations, No SOB, No BUSTILLOS, No Cough, No Sputum, No Wheezing, No Abdominal Pain, No Diarrhea, No Hematemesis, No Hemoptysis, No Unexpected Weight Loss, No Flank pain, No Melena, No Hematochezia, No Frequency, No Urgency, No Burning, No Hematuria, No Rashes, No Diaphoresis. Appetite is Normal Physical Exam Gen-AAO x 3, NAD, Afebrile Head-NCAT, EOMI, PERRLA, Anicteric Sclera, No Posterior Pharyngeal Erythema Neck-Supple, No JVD, No Thyromegaly, No Masses, No LAD, No Bruits Lungs-Clear to Auscultation Bilaterally, No Rales, No Rhonchi, No Wheezing, No Crepitus Chest-No S4, +S1, +S2, No S3, No Murmurs, No Rubs, No Gallops, No Ectopy Abdomen-Soft, Bowel Sounds Present, Non Tender, Non Distended, No Hepatomegaly, No Splenomegaly, No Palpable Masses, No Rebound, No Rigidity, No Guarding Musculoskeletal-Full Range of Motion Bilaterally, No CVAT Extremities-No Cyanosis, No Clubbing, R Thigh Hematoma, R Great toe looks good Nuero-Cranial Nerves II-XII grossly intact, Motor WNL, DTRs WNL, Strength WNL, Non Focal Psych-Normal Mood Admission and Anticipated Discharge Date Admission Date: December 01, 2019 Results & Data Results & Data ([facility]) Vital Signs (Past 12 Hours) Vital Signs Temp Pulse Pulse Resp BP BP Pulse Ox 12/03/19 07:47 36.9 C 71 18 120/74 95 12/03/19 07:40 82 12/03/19 03:44 37.1 C 72 18 111/67 95 12/02/19 23:30 37 C 79 20 113/66 98 (1) Hematoma of left thigh Encounter type: initial encounter Qualified Code(s): S70.12XA - Contusion of left thigh, initial encounter
--- NOTE | 2019-12-03 13:53 | Cardiology Consultation ---
Date of Consultation December 03, 2019 Assessment & Plan (1) Supratherapeutic INR: (2) Hematoma of left thigh: (3) Confusion: INR was 9.7 on presentation on 12/01/2019, down to 1.5 today, Hg stable. Resume coumadin, Resume ASA 81. Continue to hold clopidogrel. It is noted that he is on triple therapy because he had a stroke episode while already on dual antiplatelet therapy with aspirin and clopidogrel (he was on dual antiplatelet therapy for CAD, vein graft PCI, stent) prompting addition of Coumadin, and has also had a recurrent stroke while on all 3 medications and with a therapeutic INR. No overt signs of infection. He has been treated with chronic suppressive antibiotic, clindamycin , for treatment of osteomyelitis. At present will continue to hold anticoagulation due to 7 cm L thigh hematoma. Resume ASA 81 mg , clopidogrel 75 mg . Looking ahead, one consideration would be to consider transitioning him from to a direct oral anticoagulant such as Eliquis 5 mg twice daily. His kidney function would be adequate for this. This would be an off label use for Eliquis however as the patient does not have a history of atrial fibrillation, and this medication does not have an FDA indication for preventing non-atrial fibrillation related stroke episodes. Will re-assess the benefits and risk of this approach moving forward. Cannot start now due to hematoma. Will resume his previous treatment with clindamycin 300 mg 3 times daily which he has been on for chronic suppression of right great toe osteomyelitis. The patient apparently had self discontinued this several days ago on his own per my discussion with his spouse. History of Present Illness Attending Physician: Filippo Sebastian DO History of Present Illness Deja Turner is a 59 year old male seen in cardiology consultation per the request of Dr Sebastian for advice regarding management in this patient with a history of diffuse complex atherosclerotic vascular disease and multiple vascular beds. The patient is well-known to the undersigned as I have followed him for years on both an inpatient and outpatient basis. The patient presented to the emergency department on 12/01/2019 due to complaints of generalized weakness and confusion as observed by his spouse,Nasreen. On presentation, the patient was found to have an elevated INR of 9.7, and also elevated lactic acid level. Presenting EKG revealed sinus rhythm, with findings of chronic inferior and septal infarction patterns, unchanged compared to his previous tracings. He has undergone a repeat CT of the brain which revealed findings of prior strokes without acute change, MRI of the brain was without acute change, although there was some degree of technical limitation due to artifact as noted in the radiology report. He has been found to have a left thigh hematoma, and his Coumadin has been placed on hold. Blood cultures are negative thus far. Urinalysis negative with exception of elevated glucose level. His serum glucose was 177 on presentation, and is improved to 144 this morning. Troponin has been negative x3. Cardiac / Vascular Problem List: 1.Asymptomatic, borderline severe to severe aortic valve stenosis 2.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 in the setting of diabetes for which patient initially underwent off pump 3 vessel coronary artery bypass grafting in 2006 with DUARTE to LAD, SVG to circumflex and SVG to PDA 3.Bare metal stent to protected left main coronary artery 08/13/2015 4.PCI drug-eluting stent to the saphenous vein graft to RPDA 04/17/2014 5.PCI, drug-eluting stent to the ostial portion of the SVG to RCA 12/04/2014 for severe in stent restenosis 6.Moderate carotid occlusive disease 7.Cerebral vascular disease status post bilateral frontal infarctions on 05/30/2015 while he was already on dual anti-platelet therapy with aspirin and clopidogrel, prompting initiation of warfarin at that time, recurrent stroke 11/2017 8.Diabetes 9.Dyslipidemia 10.R great toe osteomyelitis 11. Status post atherectomy/angioplasty to the distal popliteal anterior tibial,TPT 12/2018 Dr Courtney Gomes, endovascular medicine , [facility] Allergies Allergy/AdvReac Type Severity Reaction Status Date / Time No Known Allergies Allergy Verified 12/01/19 10:46 Home Medications Home Medications Medication Instructions Recorded Confirmed Type atorvastatin 80 mg tablet 80 mg PO QPM 07/10/18 12/01/19 History baclofen 5 mg tablet 5 mg PO QAM tab 07/10/18 12/01/19 History carvedilol 12.5 mg tablet 12.5 mg PO BID 07/10/18 12/01/19 History clopidogrel 75 mg tablet 75 mg PO QAM 07/10/18 12/01/19 History insulin glargine 100 unit/mL 30 units SQ AMPM ml 07/10/18 12/01/19 History subcutaneous solution lisinopril 40 mg tablet 40 mg PO QAM 07/10/18 12/01/19 History metformin 1,000 mg tablet 1,000 mg PO BID 07/10/18 12/01/19 History insulin aspart U-100 [Novolog 14 unit SUBCUT ACHS 09/08/18 12/01/19 History U-100 Insulin aspart] aspirin 162 mg PO DAILY 08/09/19 12/01/19 History nitroglycerin 0.4 mg SUBLINGUAL UD 08/09/19 12/01/19 History warfarin [Coumadin] 7.5 mg PO QAM 08/09/19 12/01/19 History Patient History Medical History Aortic valve stenosis (Chronic) CAD (coronary artery disease) (Chronic) Carotid stenosis (Chronic) Dyslipidemia (Chronic) Hemiplegia affecting right dominant side (Chronic) HTN (hypertension) (Chronic) Monoplegia affecting right dominant side (Chronic) Obesity (Chronic) Proliferative diabetic retinopathy (Chronic) Retinal edema (Chronic) Right foot drop (Chronic) Status post cerebrovascular accident (Chronic) Status post myocardial infarction (Chronic) Superior mesenteric artery stenosis (Chronic) Type 2 diabetes mellitus (Chronic) Surgical History Hx of vitrectomy (Acute) S/P angioplasty with stent (Chronic) S/P CABG x 3 (Chronic) S/P PTCA (percutaneous transluminal coronary angioplasty) (Chronic) Family History Father Heart disease Social History Preferred Language: Nepali Communication Ability: Effective Visual Impairment: No Limitations Hearing Ability: Normal [employer] Required: No Beliefs That Will Affect Care: None marital status: Current Living Situation: Spouse Current Living Situation Comment: own home current occupational status: disabled Other Information That Helps Us Care for You: No Feels Safe at Home: Yes Safety Concerns: Feels Safe At This Time Smoking Status: Unknown if ever smoked Hx Alcohol Use: No Hx Substance Use: No Physical Exam Physical Exam: Temp Pulse Resp BP Pulse Ox 36.8 C 79 18 120/64 96 12/03/19 12:06 12/03/19 12:06 12/03/19 12:06 12/03/19 12:06 12/03/19 12:06 Constitutional: Chronically ill in appearance Respiratory: normal respiratory effort, lungs clear to auscultation Cardiovascular: Rate/Rhythm: regular rate Heart Sounds: normal S1, + abnormal opening sounds and + murmur (II/ systolic murmur heard best at right sternal border) Gastrointestinal (Abdomen): normal bowel sounds, soft, nontender, no he patosplenomegaly Musculoskeletal: Right great toe, ulceration noted, no erythema evaluation today, no further skin breakdown anywhere else on his feet per assessment today. Neurologic: Conversant, recognizes me, follows commands, however his mental status is certainly not back to its baseline yet. Results & Data ([facility]) Vital Signs (Past 12 Hours) Vital Signs Temp Pulse Pulse Resp BP BP Pulse Ox 12/03/19 12:06 36.8 C 79 18 120/64 96 12/03/19 07:47 36.9 C 71 18 120/74 95 12/03/19 07:40 82 12/03/19 03:44 37.1 C 72 18 111/67 95 Laboratory Results Cardiac Enzymes 12/02/19 12/02/19 12/03/19 Range/Units 17:14 22:44 06:58 AST 12 L (15-37) U/L Troponin I < 0.015 0.030 0.015 (0-0.045) ng/ml Coagulation 12/02/19 12/03/19 Range/Units 17:14 06:58 PT 14.4 H 15.5 H (9.0-12.0) Seconds CBC 12/02/19 12/03/19 Range/Units 17:14 06:58 WBC 8.08 7.48 (4.8-10.8) K/uL RBC 4.37 L 4.05 L (4.7-6.1) M/uL Hgb 11.5 L 10.8 L (14.0-18.0) g/dL Hct 35.2 L 31.8 L (42-52) % Plt Count 242 220 (130-400) K/uL Comprehensive Metabolic Panel 12/02/19 12/03/19 Range/Units 17:14 06:58 Sodium 137 139 (136-145) mmol/L Potassium 4.0 3.8 (3.5-5.1) mmol/L Chloride 104 107 (98-107) mmol/L Carbon Dioxide 29 28 (21-32) mmol/L BUN 14 11 (7-18) mg/dl Creatinine 0.98 0.68 D (0.6-1.4) mg/dl Glucose 212 H 144 H (70-99) mg/dl Calcium 8.3 L 8.5 (8.5-10.1) mg/dl AST 12 L (15-37) U/L ALT 18 (12-78) U/L Alkaline Phosphatase 63 (45-117) U/L Total Protein 6.9 (6.4-8.2) gm/dl Albumin 2.9 L (3.4-5.0) gm/dl Intake and Output 12/02/19 12/03/19 12/03/19 22:59 06:59 14:59 Intake Total 240 / 875 Output Total 125 / 675 Balance 115 / 200 Intake: Oral 240 / 875 Output: Urine 125 / 675 Other: # Unmeasured Voids 2 Weight 93.9 kg (1) Hematoma of left thigh Encounter type: initial encounter Qualified Code(s): S70.12XA - Contusion of left thigh, initial encounter
[2019-12-03] MEDS ORDERED: HEPARIN SOD 5,000 UNIT/0.5 ML VIAL SQ SCH (14:00)
[2019-12-03] MEDS ORDERED: CLOPIDOGREL BISULFATE 75 MG TAB PO SCH (14:15)
[2019-12-03] MEDS ORDERED: ASPIRIN 81 MG ECTAB PO SCH (14:15)
[2019-12-03] MEDS ORDERED: WARFARIN SOD 5 MG TAB PO SCH (16:00)
[2019-12-03] MEDS: CLINDAMYCIN HCL 150 MG CAP PO SCH ×2 (16:54→21:34)
[2019-12-03] MEDS: CLOPIDOGREL BISULFATE 75 MG TAB PO SCH (16:54)
[2019-12-03] MEDS: ASPIRIN 81 MG ECTAB PO SCH (16:54)
[2019-12-03 19:25] LABS: Basophils # (auto) 0.02 K/uL (0-0.2); Basophils % (auto) 0.3 %; Eosinophils % (auto) 2.6 %; Hematocrit (blood only) 35.2 % (42-52); Hemoglobin 11.3 g/dL (14.0-18.0); Immature Granulocytes # (auto) 0.02 K/uL (0.00-0.02); Immature Granulocytes % (auto) 0.3 %; Lymphocytes # (auto) 2.66 K/uL (1.2-3.4); Lymphocytes % (auto) 34.8 %; Mean Corpuscular Hemoglobin 25.7 pg (25-34); Mean Corpuscular Hgb Conc 32.1 g/dL (32-36); Mean Corpuscular Volume 80.2 fL (80-100); Mean Platelet Volume 10.4 fL (7.4-10.4); Monocytes # (auto) 0.65 K/uL (0.11-0.59); Monocytes % (auto) 8.5 %; Neutrophils # (auto) 4.09 K/uL (1.4-6.5); Neutrophils % (auto) 53.5 %; Platelet Count 272 K/uL (130-400); RDW Standard Deviation 40.9 fL (36.4-46.3); Red Blood Count 4.39 M/uL (4.7-6.1); White Blood Count 7.64 K/uL (4.8-10.8)
[2019-12-03] MEDS ORDERED: OPTIRAY 320 125ml IV PRN (19:25)
[2019-12-03 19:35] LABS: INR 1.5 (0.9-1.1); Prothrombin Time 15.9 Seconds (9.0-12.0)
--- NOTE | 2019-12-03 19:40 | CT Scan Report ---
CT SCAN OF THE BRAIN WITHOUT IV CONTRAST CLINICAL HISTORY: Strokelike symptoms. COMPARISON STUDY: CT and MRI of the brain dated 12/02/2019. TECHNIQUE: Unenhanced axial CT scan of the brain is performed from the vertex to the skull base. A do se lowering technique was utilized adhering to the principles of ALARA. CT DOSE: 1190.41 mGy.cm FINDINGS: Brain parenchyma: There are age-related involutional changes noting moderate to advanced subcortical and periventricular microangiopathic change. There is no hemorrhage, mass effect, or evidence of acu te territorial ischemia by CT criteria. Chronic lacunar infarct identified in the right cerebral govind sphere, the sarabjit, the basal ganglia, the thalami, and the caudate heads. Rose-white matter differenti ation is preserved. No extra-axial fluid collection is seen. Ventricles, sulci, cisterns: Prominent secondary to involutional change. Intracranial vasculature: There is atherosclerotic calcification of the cavernous carotid and vertebr al arteries. Calvarium: Unremarkable. Sinuses and mastoids: The visualized paranasal sinuses are clear. The mastoid air cells are well pneu matized. Orbits: The bony orbits are grossly intact. IMPRESSION: There is no hemorrhage, mass effect, or evidence of acute territorial ischemia by CT jorget lynette. ACT 112: Negative or not required by law. Electronically signed by: Donny Fernando M.D. 12/03/2019 7:38 PM
--- NOTE | 2019-12-03 19:55 | CT Scan Report ---
CT ANGIOGRAM OF THE BRAIN; CT ANGIOGRAM OF THE NECK CLINICAL HISTORY: Strokelike symptoms. COMPARISON STUDY: Unenhanced CT of the brain performed concurrently on 12/03/2019. CT and MRI of the brain dated 12/02/2019. TECHNIQUE: Following the IV administration of 119 of Optiray 320, CT angiogram of the head and neck w as performed from the aortic arch to the vertex. Images are reviewed in the axial, sagittal, and santana nal planes. 3-D MIPS images are created and assessed. IV contrast was administered without complicati on. All measurements were calculated based on NASCET criteria. A dose lowering technique was utilize d adhering to the principles of ALARA. The examination is degraded by motion artifact. FINDINGS: Brain parenchyma: There is age-related involutional change noting moderate to advanced confluent subc ortical and periventricular microangiopathic disease. Chronic lacunar infarcts are noted in the right cerebellar hemisphere, the sarabjit, the thalami, the caudate heads, in the basal ganglia. There is no h emorrhage, mass effect, or evidence of acute territorial ischemia by CT criteria. There is no evidenc e of enhancing mass lesion on the angiogram phase images. The ventricles, sulci, and cisterns are pro minent secondary to involutional change. Rose-white matter differentiation is preserved. No extra-axi al fluid collection is seen. Thoracic aorta: There is atherosclerotic calcification of the thoracic aorta. Visualized portions of the thoracic aorta are normal in caliber. The aortic arch demonstrates standard 3-vessel anatomy. Right carotid arterial system: The right common carotid artery as well as right internal and external carotid arteries are patent. Calcified plaque causes less than 50% luminal narrowing at the origin o f the right internal carotid artery. Left carotid arterial system: The left common carotid artery is patent, as are the left internal and external carotid arteries. Atherosclerotic plaque in the carotid bulb causes less than 50% luminal na rrowing at the origin of the left internal carotid artery. Vertebral arteries: The vertebral arteries are patent bilaterally and codominant. Subclavian arteries: Subclavian arteries are patent bilaterally. Atherosclerotic plaque causes less t nicholas 50% luminal narrowing of the left subclavian artery below the thoracic outlet. Intracranial vasculature: There is atherosclerotic calcification of the cavernous carotid and vertebr al arteries. There is a large right posterior communicating artery. The internal carotid arteries are patent at the skull base, as are the anterior and middle cerebral arteries bilaterally. There is foc al moderate stenosis of the M3 segment of the right middle cerebral artery seen on image #105. The ve rtebrobasilar system and posterior cerebral arteries are patent. The vertebral arteries are codominan t. Atherosclerotic plaque, irregularity, and mild stenoses are seen throughout the vertebral arteries . There is approximately 50% focal stenosis of the intracranial left vertebral artery seen on image # 53. 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 There is focal high-grade stenosis of the right posterior cerebral artery seen on image #96. There is high-gr rosalee stenosis of the left vertebral artery seen on image #105. No focal vessel cutoff is seen througho ut the intracranial circulation. Jugular veins: Patent bilaterally. Dural sinuses: Patent. Lung apices: Midline sternotomy wires are noted. Partially visualized upper lobe lung parenchyma appe ars clear. Soft tissues: The visualized pharyngeal soft tissues are normal in appearance noting angiographic pha se technique. The oropharyngeal airway appears widely patent. Bilateral low attenuation thyroid nodul es measure up to 2.6 cm. The salivary glands are normal in appearance. No cervical lymphadenopathy is seen. Skeletal structures: The skeletal structures are osteopenic. The calvarium appears intact. The cervic al spine is maintained noting multilevel spondylosis. No lytic or blastic lesion is seen. Sinuses and mastoids: A 1.5 cm retention cyst is noted in the right maxillary antrum. The paranasal s inuses are otherwise clear. The mastoid air cells are well pneumatized. Cerumen is noted within the l eft external auditory canal. IMPRESSION: 1. There is no hemorrhage, mass effect, or evidence of acute territorial ischemia by CT criteria noti ng angiographic phase technique. 2. Atherosclerotic plaque causes less than 50% luminal narrowing at the origin of the internal caroti d arteries bilaterally. 3. 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 4. There is approximately 50% focal stenosis of the intracranial left vertebral artery. 5. There are foci of high-grade stenosis present within the posterior cerebral arteries bilaterally. 6. Focal stenosis is seen within the M3 segment of the right middle cerebral artery. 7. No occluded vessels are identified. ACT 112: Negative or not required by law. Electronically signed by: Donny Fernando M.D. 12/03/2019 7:54 PM
[2019-12-03 19:56] LABS: Albumin Globulin Ratio 0.7 (0.9-2); Albumin Level 2.9 gm/dl (3.4-5.0); BUN Creatinine Ratio 19.5 (10-20); Bilirubin,Total 0.7 mg/dl (0.2-1); Calcium 8.5 mg/dl (8.5-10.1); Creatinine Clr Calc Pharmacy 115.4 ml/min; Est GFR (African American) 111.7; Est GFR (Non-African American) 96.4; Globulin 4.2 gm/dl (2.5-4.0); Potassium 4.3 mmol/L (3.5-5.1); Total Protein 7.1 gm/dl (6.4-8.2)
--- NOTE | 2019-12-03 21:21 | Hospitalist Progress Note ---
Date of Service December 03, 2019 Assessment & Plan Admission and Anticipated Discharge Date Admission Date: December 01, 2019 Subjective Stroke alert was called as patient found to have some slurred speech, right facial droop and more weakness on right side than usual. Last well know time was 6:15pm. Stroke alert was called was around 7pm. Patient seems to be back to baseline when assessed back from ct scan. Ct head no acute findings. CTA head and neck showed high grade stenosis present in posterior cerebral arteries bilaterally. Spoke with [facility] . Since no active lesion on the imaging studies or occlusion recommended to continue antiplatelet therapy.Was also advised no need of Coumadin if no A.fib or PE or any other needs to be on Coumadin. Advised to check for Plavix assay as there is 15% chance of Plavix failure and recommended brilinta or newer antiplatelet agents. Currently patient hemodynamically stable. Speech clear. Alert and oriented. Power 5/5 in left extremities 4-5/5 in right extremities. Finger nose test normal ,co ordination of movements normal. NO obvious pronator drift. Able to lift lower extremity and hold . Heel to man test normal. Sensations intact. Position sense intact. Results & Data Results & Data ([facility]) Vital Signs (Past 12 Hours) Vital Signs Temp Pulse Resp BP Pulse Ox 12/03/19 18:53 37.2 C 78 18 153/72 H 98 12/03/19 14:47 36.8 C 75 18 127/76 97 12/03/19 12:06 36.8 C 79 18 120/64 96
--- NOTE | 2019-12-03 21:24 | Consultation Report ---
DATE OF CONSULTATION: 12/03/2019 REASON FOR CONSULTATION: Confusional episode. HISTORY OF PRESENT ILLNESS: The patient and the chart served as chief historians. By way of the medical record, the patient is a 59-year-old right-handed male with chief complaint of generalized weakness, left thigh pain and elevated INR. The patient has a history of coronary artery disease, bypass, insulin-dependent diabetes, severe aortic stenosis, history of recurrent stroke while on dual antiplatelet therapy, on Coumadin for anticoagulation, right foot drop, bilateral carotid stenosis, hypertension, hyperlipidemia, SMA stenosis. The patient reports to me that he had 2 episodes upon awakening where he was confused. He felt he was in a dream-like state. It is unclear how long this episode went on. He was not incontinent or injured. On the morning of admission, he was said to feel dizzy, lightheaded, had generalized weakness and needed more assistance to sit up on the bed. He also had a throbbing pain in the left thigh without recent injury. There was mild nausea. By report, no focal neurologic symptoms were noted. No chest pain, palpitations or shortness of breath. It does not sound by history that the patient has any similar episodes. He has no noted history of sleep disorder. In the ER, his vitals were stable, but there was report that upon arrival by EMS, blood pressure was 60/30. The patient was given fluid and his blood sugar prior to arrival was in the 200s. He has a history of a prior stroke with residual right hemiparesis. There is no history of seizure. DIAGNOSTIC STUDIES: On admission, white count 9.6, H and H 12/37.2, platelet count 235. INR not greater than 9.7, today 1.3. Electrolytes notable for sodium of 111, BUN 19/1.1, glucose 177. Lactate 3.5, albumin 3.1. MRI of the brain shows bilateral chronic ischemic changes. No definite acute intracranial abnormality. Images degraded by movement. CTA of the head and neck showed less than 50% luminal narrowing at the origin of the internal carotid arteries bilaterally, 3 mm aneurysm arising from the mid portion of the basilar artery, focal high-grade stenosis within the posterior cerebral arteries bilaterally, focal stenosis within the M3 segment of the right middle cerebral artery. EKG; normal sinus rhythm, possible left atrial enlargement, inferior infarct, possible anterolateral infarct, abnormal EKG, no significant change since 08/09/2019. PAST MEDICAL HISTORY: As above. PAST SURGICAL HISTORY: Vitrectomy, angioplasty with stent, bypass surgery, PTCA. FAMILY HISTORY: Notable for heart disease. 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 Nonsmoker, nondrinker. ALLERGIES: No allergies are noted. HOME MEDICATIONS: Atorvastatin, baclofen, carvedilol, Plavix, insulin, lisinopril, metformin, aspirin, nitroglycerin and warfarin. None of his medicines are new or changed in dose. PHYSICAL EXAMINATION: VITAL SIGNS: 153/72, 78, 18, 37.2, 98%. GENERAL: The patient is awake and alert. Mentation is mildly slow and speech is mildly dysarthric. No aphasia is noted. No right/left confusion is noted. The patient is oriented. NECK: There are no carotid bruits. HEART: No heart murmurs are appreciable. EXTREMITIES: There is contracture of the right foot in a clawfoot deformity. NEUROLOGIC: Pupils are equal. There is normal extraocular motility. Normal visual field. Mild flattening of the right nasolabial fold. Right upper extremity is about 4 with increased tone. Right lower extremity about the same with increased tone. Left upper and left lower are full. [id number] is consistent with his hemiparesis. [id number] is symmetric. No sensory loss to light touch is noted. Reflexes are brisker on the right than the left. Right toe is up, left toe is down. Gait was not tested. IMPRESSION: 1. This patient by his own report had confusion and a dream-like state upon awakening on 2 occasions. He reports the episodes lasting about half an hour. I think it is reasonable to perform an EEG to rule out seizure. A sleep disorder could present similarly, such as fragments of narcolepsy. However, the patient does not give a prior history of the same. This may all be related to hypoperfusion given that his blood pressure was low. 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 Recommend vascular surgery consultation with neurosurgical interventional radiology post-discharge. The patient appears asymptomatic in this regard.
[2019-12-03] MEDS: ATORVASTATIN 40 MG TAB PO SCH (21:35)
[2019-12-03] MEDS: HEPARIN SOD 5,000 UNIT/0.5 ML VIAL SQ SCH (21:35)
[2019-12-04 06:09] LABS: Hematocrit (blood only) 30.4 % (42-52); Hemoglobin 10.3 g/dL (14.0-18.0); Mean Corpuscular Hemoglobin 26.5 pg (25-34); Mean Corpuscular Hgb Conc 33.9 g/dL (32-36); Mean Corpuscular Volume 78.4 fL (80-100); Mean Platelet Volume 10.1 fL (7.4-10.4); Platelet Count 241 K/uL (130-400); RDW Standard Deviation 39.8 fL (36.4-46.3); Red Blood Count 3.88 M/uL (4.7-6.1); White Blood Count 6.62 K/uL (4.8-10.8)
[2019-12-04 06:24] LABS: INR 1.6 (0.9-1.1); Prothrombin Time 16.2 Seconds (9.0-12.0)
[2019-12-04 07:16] LABS: BUN Creatinine Ratio 18.3 (10-20); Calcium 8.6 mg/dl (8.5-10.1); Creatinine Clr Calc Pharmacy 135.8 ml/min; Est GFR (African American) 119.5; Est GFR (Non-African American) 103.1; Potassium 3.6 mmol/L (3.5-5.1)
[2019-12-04] MEDS: BACLOFEN 10 MG TAB PO SCH (08:25)
[2019-12-04] MEDS: carvediloL 12.5 MG TAB PO SCH ×2 (08:25→20:22)
[2019-12-04] MEDS: lisinopriL 40 MG TAB PO SCH (08:25)
[2019-12-04] MEDS: ASPIRIN 81 MG ECTAB PO SCH (08:26)
[2019-12-04] MEDS: CLINDAMYCIN HCL 150 MG CAP PO SCH ×3 (08:26→20:22)
[2019-12-04] MEDS: AMLODIPINE BESYLATE 5 MG TAB PO SCH (08:26)
[2019-12-04] MEDS: INSULIN ASPART 100 UNITS/ML 3 ML PEN SC SCH ×4 (08:29→20:24)
[2019-12-04] MEDS: INSULIN GLARGINE SOLOSTAR 100 UNITS/ML 3 ML PEN SC SCH ×2 (08:30→20:24)
[2019-12-04] MEDS: HEPARIN SOD 5,000 UNIT/0.5 ML VIAL SQ SCH ×2 (08:32→20:23)
[2019-12-04] MEDS: CLOPIDOGREL BISULFATE 75 MG TAB PO SCH (08:33)
--- NOTE | 2019-12-04 10:07 | Hospitalist Progress Note ---
Date of Service December 04, 2019 Assessment & Plan (1) Hematoma of left thigh: Left upper thigh spontaneous 7 cm hematoma secondary to supratherapeutic INR Patient denies of any recent fall or trauma Anticoagulation kept on hold-to allow spontaneous resolution of hematoma No sign of sepsis, no fever or chills H&H remained stable Continue to monitor Elevated lactic acid: No evidence of sepsis, no fever chills, no evidence of infection on chest x-ray Possible secondary to large underlying hematoma? Ordered for gentle IV fluids, Repeat lactic acid level in 4 hours, no indication for antibiotic treatment (2) Supratherapeutic INR: INR 9.7 possibly causing left thigh spontaneous hematoma coumadin /dual antiplatelets ( Aspirin 164 mg /Palvix ) on hold follow INR daily (3) H/O: CVA (cerebrovascular accident): Cerebral vascular disease status post bilateral frontal infarctions on 05/30/2015 while on dual anti-platelet therapy with aspirin and clopidogrel, prompting initiation of warfarin recurrent stroke 11/2017 presented with INR> 9 dual antiplatelets and coumadin kept on hold given high risk for CVA , anticoagulation needs to be resumed today, start Eliquis (4) Type 2 diabetes mellitus: insulin SSI (5) HTN (hypertension): BP stable cont out pt meds AMBULATORY DYSFUNCTION : worsening of weakness /gait disturbance due to acute illness PT OT evaluation Patient is already active with outpatient physical therapy center for twice a week Was very confused yesterday, w/u negative Resume Warfarin CODE STATUS: Full code DVT prophylaxis: Eliquis Disposition: Discharge home when medically stable, 1-2 days, PT/OT Had Stroke alert called at 1855 yesterday, w/u neg, Neuro saw him, His deficits have resolved He feels back to baseline Start Eliquis today ROS-No Headache, No Visual Changes, No Nausea, No Vomiting, No Fever, No Chills, No Neck Pain or Stiffness, No Chest Pain, No Palpitations, No SOB, No BUSTILLOS, No Cough, No Sputum, No Wheezing, No Abdominal Pain, No Diarrhea, No Hematemesis, No Hemoptysis, No Unexpected Weight Loss, No Flank pain, No Melena, No Hematochezia, No Frequency, No Urgency, No Burning, No Hematuria, No Rashes, No Diaphoresis. Appetite is Normal Physical Exam Gen-AAO x 3, NAD, Afebrile Head-NCAT, EOMI, PERRLA, Anicteric Sclera, No Posterior Pharyngeal Erythema Neck-Supple, No JVD, No Thyromegaly, No Masses, No LAD, No Bruits Lungs-Clear to Auscultation Bilaterally, No Rales, No Rhonchi, No Wheezing, No Crepitus Chest-No S4, +S1, +S2, No S3, No Murmurs, No Rubs, No Gallops, No Ectopy Abdomen-Soft, Bowel Sounds Present, Non Tender, Non Distended, No Hepatomegaly, No Splenomegaly, No Palpable Masses, No Rebound, No Rigidity, No Guarding Musculoskeletal-Full Range of Motion Bilaterally, No CVAT Extremities-No Cyanosis, No Clubbing, R Thigh Hematoma, R Great toe looks good Nuero-Cranial Nerves II-XII grossly intact, Motor WNL, DTRs WNL, Strength WNL, Non Focal Psych-Normal Mood Admission and Anticipated Discharge Date Admission Date: December 01, 2019 Results & Data Results & Data ([facility]) Vital Signs (Past 12 Hours) Vital Signs Temp Pulse Pulse Resp BP Pulse Ox 12/04/19 07:18 71 12/04/19 03:54 36.3 C L 71 19 126/77 98 12/04/19 01:48 75 12/03/19 23:00 37.1 C 91 H 18 109/69 96 (1) Hematoma of left thigh Encounter type: initial encounter Qualified Code(s): S70.12XA - Contusion of left thigh, initial encounter
[2019-12-04] MEDS: APIXABAN 5 MG TABLET PO SCH ×2 (12:38→20:47)
--- NOTE | 2019-12-04 13:17 | Cardiology Progress Note ---
Date of Service December 04, 2019 Assessment & Plan (1) Stroke-like symptom: (2) Hematoma of left thigh: Acute CTA performed last evening for change in mental status revealed no hemorrhage, mass-effect, or evidence of acute territorial ischemia by CT criteria per the radiology report. Atherosclerotic plaque causing less than 50% luminal narrowing noted at the origin of the internal carotid arteries bilaterally Foci of high-grade stenosis present in the posterior cerebral arteries bilaterally and a focal stenosis is noted within the M3 segment of the right middle cerebral artery. At this time, continue with ongoing dual antiplatelet therapy with aspirin clopidogrel. Agree with trial of Eliquis, although this is an off label use of Eliquis in terms of prevention of stroke in the absence of atrial fibrillation, it would provide the benefit of avoiding labile INR measurements think therefore would reduce his bleeding risk. Subjective Patient seen in follow-up. Events of last night reviewed. His mental status appears to be better than when I had seen him yesterday afternoon at present. He is conversant. Blood pressure and heart rate are stable. Review of Systems 2 Review of Systems: All systems reviewed & are unremarkable except as noted in HPI & below Physical Exam Physical Exam: Temp Pulse Resp BP Pulse Ox 36.3 C L 71 19 126/77 98 12/04/19 03:54 12/04/19 07:18 12/04/19 03:54 12/04/19 03:54 12/04/19 03:54 Constitutional: WD/WN, vitals as above Respiratory: normal respiratory effort, lungs clear to auscultation Cardiovascular: Rate/Rhythm: regular rhythm Heart Sounds: + murmur (II/ systolic murmur) Vessels: no JVD Extremities: no edema Neurologic: Follows commands, conversant, right foot drop noted Results & Data Vital Signs (Past 12 Hours) Vital Signs Temp Pulse Pulse Resp BP Pulse Ox 12/04/19 07:18 71 12/04/19 03:54 36.3 C L 71 19 126/77 98 12/04/19 01:48 75 Laboratory Results Cardiac Enzymes 12/03/19 Range/Units 19:19 AST 17 (15-37) U/L Coagulation 12/03/19 12/04/19 Range/Units 19:19 05:51 PT 15.9 H 16.2 H (9.0-12.0) Seconds CBC 12/03/19 12/04/19 Range/Units 19:19 05:51 WBC 7.64 6.62 (4.8-10.8) K/uL RBC 4.39 L 3.88 L (4.7-6.1) M/uL Hgb 11.3 L 10.3 L (14.0-18.0) g/dL Hct 35.2 L 30.4 L (42-52) % Plt Count 272 241 (130-400) K/uL Neut # (Auto) 4.09 (1.4-6.5) K/uL Lymph # (Auto) 2.66 (1.2-3.4) K/uL [place] # (Auto) 0.65 H (0.11-0.59) K/uL Eos # (Auto) 0.20 (0-0.5) K/uL Baso # (Auto) 0.02 (0-0.2) K/uL Comprehensive Metabolic Panel 12/03/19 12/04/19 Range/Units 19:19 05:51 Sodium 136 136 (136-145) mmol/L Potassium 4.3 3.6 D (3.5-5.1) mmol/L Chloride 103 103 (98-107) mmol/L Carbon Dioxide 28 27 (21-32) mmol/L BUN 16 12 (7-18) mg/dl Creatinine 0.80 0.68 (0.6-1.4) mg/dl Glucose 180 H 150 H (70-99) mg/dl Calcium 8.5 8.6 (8.5-10.1) mg/dl AST 17 (15-37) U/L ALT 20 (12-78) U/L Alkaline Phosphatase 62 (45-117) U/L Total Protein 7.1 (6.4-8.2) gm/dl Albumin 2.9 L (3.4-5.0) gm/dl Intake and Output 12/03/19 12/04/19 12/04/19 22:59 06:59 14:59 Intake Total 240 / 590 150 / 590 Output Total 200 / 975 575 / 975 Balance 40 / -385 -425 / -385 Intake: Oral 240 / 590 150 / 590 Output: Urine 200 / 400 Urine Amount (Catheter) 575 / 575 External 575 / 575 Other: # Unmeasured Voids 2 Weight 93.9 kg 94 kg (1) Hematoma of left thigh Encounter type: initial encounter Qualified Code(s): S70.12XA - Contusion of left thigh, initial encounter
--- NOTE | 2019-12-04 14:43 | Communication Note ---
Date of Service: December 04, 2019 All Drs Please keep Nasreen updated [phone]
--- NOTE | 2019-12-04 17:36 | Electroencephalogram ---
EEG Procedure Note Date of Service December 04, 2019 Start / End Times Start Time: 08:33 End Time: 08:[address] Lora MD History A 59 year old M with confusion upon awakening in dreamlite state. History of multiple stroke. EEG performed for evaluation of epilpetiform activity. Home Medication List Home Medications Medication Instructions Recorded Confirmed Type atorvastatin 80 mg tablet 80 mg PO QPM 07/10/18 12/01/19 History baclofen 5 mg tablet 5 mg PO QAM tab 07/10/18 12/01/19 History carvedilol 12.5 mg tablet 12.5 mg PO BID 07/10/18 12/01/19 History clopidogrel 75 mg tablet 75 mg PO QAM 07/10/18 12/01/19 History insulin glargine 100 unit/mL 30 units SQ AMPM ml 07/10/18 12/01/19 History subcutaneous solution lisinopril 40 mg tablet 40 mg PO QAM 07/10/18 12/01/19 History metformin 1,000 mg tablet 1,000 mg PO BID 07/10/18 12/01/19 History insulin aspart U-100 [Novolog 14 unit SUBCUT ACHS 09/08/18 12/01/19 History U-100 Insulin aspart] aspirin 162 mg PO DAILY 08/09/19 12/01/19 History nitroglycerin 0.4 mg SUBLINGUAL UD 08/09/19 12/01/19 History warfarin [Coumadin] 7.5 mg PO QAM 08/09/19 12/01/19 History Inpatient Medication List [facility] [place]: 01/01/20 17:14 Last Admin: 12/04/19 08:26 Dose: 5 mg Documented by: [id number] Admin: 12/03/19 08:25 Dose: 5 mg Documented by: [id number] Admin: 12/02/19 17:47 Dose: 5 mg Documented by: [id number] Apixaban (Eliquis) 5 mg PO BID [facility] Stop: 01/03/20 10:14 Last Admin: 12/04/19 12:38 Dose: 5 mg Documented by: [id number] Aspirin (Ecotrin Ectab) 81 mg PO QAM [facility] Stop: 01/02/20 14:14 Last Admin: 12/04/19 08:26 Dose: 81 mg Documented by: [id number] Admin: 12/03/19 16:54 Dose: 81 mg Documented by: [id number] Atorvastatin Calcium (Lipitor) 80 mg PO QPM [facility] Stop: 12/31/19 20:59 Last Admin: 12/03/19 21:35 Dose: 80 mg Documented by: [id number] Admin: 12/02/19 20:48 Dose: 80 mg Documented by: [id number] Admin: 12/01/19 20:56 Dose: 80 mg Documented by: [id number] Baclofen (Lioresal) 5 mg PO QAM [facility] Stop: 01/01/20 08:59 Last Admin: 12/04/19 08:25 Dose: 5 mg Documented by: [id number] Admin: 12/03/19 08:25 Dose: 5 mg Documented by: [id number] Admin: 12/02/19 08:52 Dose: 5 mg Documented by: [id number] Carvedilol (Coreg) 12.5 mg PO BID [facility] Stop: 12/31/19 20:59 Last Admin: 12/04/19 08:25 Dose: 12.5 mg Documented by: [id number] Admin: 12/03/19 21:42 Dose: 12.5 mg Documented by: [id number] Admin: 12/03/19 08:25 Dose: 12.5 mg Documented by: [id number] Admin: 12/02/19 20:47 Dose: 12.5 mg Documented by: [id number] Admin: 12/02/19 08:53 Dose: 12.5 mg Documented by: [id number] Admin: 12/01/19 20:57 Dose: 12.5 mg Documented by: [id number] Clindamycin HCl (Cleocin) 300 mg PO TID [facility] Stop: 01/02/20 14:14 Last Admin: 12/04/19 15:15 Dose: 300 mg Documented by: [id number] Admin: 12/04/19 08:26 Dose: 300 mg Documented by: [id number] Admin: 12/03/19 21:34 Dose: 300 mg Documented by: [id number] Admin: 12/03/19 16:54 Dose: 300 mg Documented by: [id number] Clopidogrel Bisulfate (Plavix) 75 mg PO QAM [facility] Stop: 01/02/20 14:14 Last Admin: 12/04/19 08:33 Dose: 75 mg Documented by: [id number] Admin: 12/03/19 16:54 Dose: 75 mg Documented by: [id number] Heparin Sodium (Porcine) (Heparin Sodium (Porcine)) 5,000 units SQ Q12 [facility] Stop: 01/02/20 20:59 Last Admin: 12/04/19 08:32 Dose: 5,000 units Documented by: [id number] Cosigned by: [id number] Admin: 12/03/19 21:35 Dose: 5,000 units Documented by: [id number] Cosigned by: [id number] Insulin Aspart (Novolog Flexpen) 0 units SC ACHS [facility] Stop: 12/31/19 17:32 Last Admin: 12/04/19 12:41 Dose: 4 units Documented by: [id number] Cosigned by: [id number] Admin: 12/04/19 08:29 Dose: 2 units Documented by: [id number] Cosigned by: [id number] Admin: 12/03/19 21:33 Dose: 2 units Documented by: [id number] Cosigned by: [id number] Admin: 12/03/19 17:16 Dose: 3 units Documented by: [id number] Cosigned by: [id number] Admin: 12/03/19 12:08 Dose: 3 units Documented by: [id number] Cosigned by: [id number] Admin: 12/03/19 08:27 Dose: 2 units Documented by: [id number] Cosigned by: [id number] Admin: 12/02/19 20:50 Dose: 1 units Documented by: [id number] Cosigned by: [id number] Admin: 12/02/19 17:42 Dose: 3 units Documented by: [id number] Cosigned by: [id number] Admin: 12/02/19 12:07 Dose: 5 units Documented by: [id number] Cosigned by: [id number] Admin: 12/02/19 08:55 Dose: 3 units Documented by: [id number] Cosigned by: [id number] Admin: 12/01/19 21:04 Dose: 2 units Documented by: [id number] Cosigned by: [id number] Admin: 12/01/19 18:28 Dose: 1 units Documented by: [id number] Cosigned by: [id number] Insulin Glargine (Lantus Solostar Pen) 30 units SC BID [facility] Stop: 12/31/19 20:59 Last Admin: 12/04/19 08:30 Dose: 30 units Documented by: [id number] Cosigned by: [id number] Admin: 12/03/19 21:33 Dose: 30 units Documented by: [id number] Cosigned by: [id number] Admin: 12/03/19 08:26 Dose: 30 units Documented by: [id number] Cosigned by: [id number] Admin: 12/02/19 20:47 Dose: 30 units Documented by: [id number] Cosigned by: [id number] Admin: 12/02/19 08:54 Dose: 30 units Documented by: [id number] Cosigned by: [id number] Admin: 12/01/19 21:03 Dose: 30 units Documented by: [id number] Cosigned by: [id number] Ioversol (Optiray 320 125ml) 119 ml IV ONCE PRN PRN Reason: Interaction Checking Stop: 12/07/19 19:24 Last Admin: 12/03/19 19:28 Dose: 119 ml Documented by: [id number] Discontinued Medications Heparin Sodium (Porcine) (Heparin Sodium (Porcine)) 5,000 units SQ Q8 [facility] Stop: 01/02/20 13:59 Last Admin: 12/03/19 15:09 Dose: Not Given Documented by: [id number] Sodium Chloride (Nss) 500 mls @ 999 mls/hr IV .Q31M [facility] Stop: 12/01/19 10:30 Last Infusion: 12/01/19 10:45 Dose: 0 mls/hr Documented by: [id number] Admin: 12/01/19 10:09 Dose: 999 mls/hr Documented by: [id number] Phytonadione 10 mg/ Sodium (Chloride) 51 mls @ 102 mls/hr IV ONE ONE Stop: 12/01/19 11:49 Last Infusion: 12/01/19 12:22 Dose: 0 mls/hr Documented by: [id number] Admin: 12/01/19 11:51 Dose: 102 mls/hr Documented by: [id number] Magnesium Sulfate/Dextrose (Magnesium Sulfate / D5w) 1 gm in 100 mls @ 100 mls/hr IV NOW STA Stop: 12/01/19 12:24 Last Infusion: 12/01/19 13:38 Dose: 0 mls/hr Documented by: [id number] Admin: 12/01/19 12:23 Dose: 100 mls/hr Documented by: [id number] Calcium Gluconate 1,000 mg/ (Sodium Chloride) 60 mls @ 240 mls/hr IV NOW STA Stop: 12/01/19 11:39 Last Infusion: 12/01/19 12:15 Dose: 0 mls/hr Documented by: [id number] Admin: 12/01/19 11:51 Dose: 240 mls/hr Documented by: [id number] Sodium Chloride (Nss 1000ml) 500 mls @ 999 mls/hr IV .Q31M ONE Stop: 12/01/19 12:51 Last Infusion: 12/01/19 13:13 Dose: 0 mls/hr Documented by: [id number] Admin: 12/01/19 12:23 Dose: 999 mls/hr Documented by: [id number] Sodium Chloride (Nss 1000ml) 1,000 mls @ 100 mls/hr IV .Q10H [facility] Stop: 12/02/19 03:59 Last Infusion: 12/02/19 09:17 Dose: 0 mls/hr Documented by: [id number] Infusion: 12/02/19 06:27 Dose: 0 mls/hr Documented by: [id number] Admin: 12/01/19 18:15 Dose: 80 mls/hr Documented by: [id number] Magnesium Sulfate/Dextrose (Magnesium Sulfate / D5w) 1 gm in 100 mls @ 50 mls/hr IV TODAY@1800 [facility] Stop: 12/01/19 19:59 Last Infusion: 12/01/19 21:22 Dose: 0 mls/hr Documented by: [id number] Admin: 12/01/19 18:26 Dose: 50 mls/hr Documented by: [id number] Lorazepam (Ativan) 0.5 mg in 1 mls @ 1 mls/min IV NOW STA Stop: 12/02/19 19:19 Last Admin: 12/02/19 19:26 Dose: 1 mls/min Documented by: [id number] Lisinopril (Zestril) 40 mg PO QAM [facility] Stop: 01/01/20 08:59 Last Admin: 12/04/19 08:25 Dose: 40 mg Documented by: [id number] Admin: 12/03/19 08:25 Dose: 40 mg Documented by: [id number] Admin: 12/02/19 08:53 Dose: 40 mg Documented by: [id number] Lorazepam (Ativan) Confirm Administered Dose 2 mg .ROUTE .STK-MED ONE Stop: 12/02/19 19:23 Last Admin: 12/02/19 19:26 Dose: Not Given Documented by: [id number] Description This is a 21 electrode EEG with a single channel dedicated to limited EKG. The electrodes were placed in accordance with the International 10-20 system. REPORT: At the onset of the EEG the patient is awake. The posterior dominant rhythm is 9 Hz. There is a normal anterior to posterior gradient with predominant beta activity in the frontal head region. There is frequent electrode artifact associated with head movements. Photic stimulation does not induce any abnormalities. No stage II sleep transients are noted. Drowsiness is characterized by reduced blink rate and increased theta activity. IMPRESSION: This is a normal awake and drowsy routine EEG. No epileptiform activity is recorded.
--- NOTE | 2019-12-04 17:53 | Progress Notes ---
DATE: 12/04/2019 I am seeing the patient in followup of a confusional episode without focality. The patient was hypotensive at the time. EEG has been performed, but is not yet resulted. 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 No occluded vessels. The patient indicates that he has had no further confusional episodes. He confirms that he has no sleep disorder such as narcolepsy. The patient is awake and alert. Speech is only minimally dysarthric. Affect appropriate. He appears brighter today than he had. IMPRESSION: Confusional episode, possibly related to hypoperfusion. Sz withing the differential Would certainly not treat for szunless there was something definitive on EEG. The patient has known atherosclerotic cerebrovascular disease. 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 Continued risk factor modification remains reasonable with good control of diabetes, blood pressure and cholesterol . 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 Likely they will monitor. I discussed this with the patient. FREIDA
[2019-12-04] MEDS: ATORVASTATIN 40 MG TAB PO SCH (20:23)
[2019-12-05] MEDS: ASPIRIN 81 MG ECTAB PO SCH (07:27)
[2019-12-05] MEDS: APIXABAN 5 MG TABLET PO SCH ×2 (07:27→20:50)
[2019-12-05] MEDS: CLOPIDOGREL BISULFATE 75 MG TAB PO SCH (07:28)
[2019-12-05] MEDS: AMLODIPINE BESYLATE 5 MG TAB PO SCH (07:28)
[2019-12-05] MEDS: carvediloL 12.5 MG TAB PO SCH ×2 (07:28→20:49)
[2019-12-05] MEDS: CLINDAMYCIN HCL 150 MG CAP PO SCH ×3 (07:29→20:46)
[2019-12-05] MEDS: BACLOFEN 10 MG TAB PO SCH (07:30)
[2019-12-05] MEDS: INSULIN ASPART 100 UNITS/ML 3 ML PEN SC SCH ×4 (08:05→20:52)
[2019-12-05] MEDS: INSULIN GLARGINE SOLOSTAR 100 UNITS/ML 3 ML PEN SC SCH ×2 (08:06→20:51)
[2019-12-05] MEDS: lisinopriL 10 MG TAB PO SCH (08:50)
[2019-12-05 09:06] LABS: INR 1.6 (0.9-1.1); Prothrombin Time 16.3 Seconds (9.0-12.0)
[2019-12-05 09:28] LABS: Albumin Globulin Ratio 0.7 (0.9-2); Albumin Level 2.8 gm/dl (3.4-5.0); BUN Creatinine Ratio 21.1 (10-20); Bilirubin,Total 0.8 mg/dl (0.2-1); Calcium 8.8 mg/dl (8.5-10.1); Creatinine Clr Calc Pharmacy 111.7 ml/min; Est GFR (African American) 110.1; Potassium 4.1 mmol/L (3.5-5.1); Total Protein 6.8 gm/dl (6.4-8.2)
--- NOTE | 2019-12-05 15:39 | Cardiology Progress Note ---
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 Agree with trial of Eliquis, although this is an off label use of Eliquis in terms of prevention of stroke in the absence of atrial fibrillation, it would provide the benefit of avoiding labile INR measurements think therefore would reduce his bleeding risk. Subjective Pt seen in follow up. Mental status improved. No acute complaints. Telemetry reveals SR in the 70s to 80s. Physical Exam Physical Exam: Temp Pulse Resp BP Pulse Ox 36.3 C L 83 16 91/65 L 94 12/05/19 11:17 12/05/19 11:17 12/05/19 11:17 12/05/19 11:17 12/05/19 11:17 Constitutional: chronically ill in appearance Respiratory: normal respiratory effort, lungs clear to auscultation Cardiovascular: Rate/Rhythm: regular rhythm Heart Sounds: + murmur (II/ SM) Gastrointestinal (Abdomen): normal bowel sounds, soft, nontender, no hepatosplenomegaly Skin: no rashes, warm and dry Neurologic: PERRL, EOMI, accommodation nl, no face palsy, no dysarthria chronic R Foot drop noted Results & Data Vital Signs (Past 12 Hours) Vital Signs Temp Pulse Resp BP Pulse Ox 12/05/19 11:17 36.3 C L 83 16 91/65 L 94 12/05/19 07:41 36.9 C 82 16 151/84 H 95 12/05/19 04:00 37 C 70 18 133/76 94 Laboratory Results Cardiac Enzymes 12/05/19 Range/Units 08:16 AST 7 L (15-37) U/L Coagulation 12/05/19 Range/Units 08:16 PT 16.3 H (9.0-12.0) Seconds Comprehensive Metabolic Panel 12/05/19 Range/Units 08:16 Sodium 137 (136-145) mmol/L Potassium 4.1 (3.5-5.1) mmol/L Chloride 105 (98-107) mmol/L Carbon Dioxide 25 (21-32) mmol/L BUN 18 (7-18) mg/dl Creatinine 0.83 (0.6-1.4) mg/dl Glucose 191 H (70-99) mg/dl Calcium 8.8 (8.5-10.1) mg/dl AST 7 L (15-37) U/L ALT 15 (12-78) U/L Alkaline Phosphatase 62 (45-117) U/L Total Protein 6.8 (6.4-8.2) gm/dl Albumin 2.8 L (3.4-5.0) gm/dl Intake and Output 12/05/19 12/05/19 12/05/19 06:59 14:59 22:59 Intake Total 250 / 645 275 / 275 Output Total 150 / 1050 Balance 100 / -405 275 / 275 Intake: Oral 250 / 645 275 / 275 Output: Urine Amount (Catheter) 150 / 1050 External 150 / 1050 Other: # Unmeasured Voids 2 Weight 94.9 kg (1) Hematoma of left thigh Encounter type: initial encounter Qualified Code(s): S70.12XA - Contusion of left thigh, initial encounter
--- NOTE | 2019-12-05 16:57 | Progress Notes ---
DATE: 12/05/2019 SUBJECTIVE: I am seeing the patient for an episode of confusion upon awakening. EEG showed no evidence of seizure activity. The patient was hypotensive at the time of the event. PHYSICAL EXAMINATION: On today's exam, the patient is awake and alert. Speech is very marginally dysarthric. There is normal extraocular motility. Plus/minus mild flattening of the right nasolabial fold. Right upper extremity about 4, right lower extremity about 4 as well. IMPRESSION: 1. History of multiple strokes. Continue risk factor modification. 2. Confusional episode upon awakening, likely related to hypotension. We will sign off at present. Please reconsult if there are questions or concerns.
--- NOTE | 2019-12-05 20:23 | Hospitalist Progress Note ---
Date of Service December 05, 2019 Assessment & Plan (1) Hematoma of left thigh: Warfarin induced hematoma Left upper thigh spontaneous 7 cm hematoma secondary to supratherapeutic INR (warfarin use) Patient denies of any recent fall or trauma Anticoagulation kept on hold-to allow spontaneous resolution of hematoma, on admission No sign of sepsis, no fever or chills H&H remained stable Continue to monitor Elevated lactic acid: No evidence of sepsis, no fever chills, no evidence of infection on chest x-ray, on admission Possible secondary to large underlying hematoma? Ordered for gentle IV fluids, Repeat lactic acid level in 4 hours, no indication for antibiotic treatment (2) Supratherapeutic INR: INR 9.7 possibly causing left thigh spontaneous hematoma coumadin /dual antiplatelets ( Aspirin 164 mg /Palvix ) on hold follow INR daily (3) H/O: CVA (cerebrovascular accident): Cerebral vascular disease status post bilateral frontal infarctions on 05/30/2015 while on dual anti-platelet therapy with aspirin and clopidogrel, prompting initiation of warfarin recurrent stroke 11/2017 presented with INR> 9 dual antiplatelets and coumadin kept on hold Patient had stroke alert on December 02 in the evening. Neurology consulted and been following patient. Patient reported dreamlike state, therefore EEG was performed to rule out seizure, EEG was negative. It is believed that this episode was secondary to hypotension. 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 Likely they will monitor. Given high risk for CVA , anticoagulation needs to be resumed, started Eliquis CAD, stable Severe -Cardiology following,at this time, continue with ongoing dual antiplatelet therapy with aspirin clopidogrel. Agree with trial of Eliquis, although this is an off label use of Eliquis in terms of prevention of stroke in the absence of atrial fibrillation, it would provide the benefit of avoiding labile INR measurements think therefore would reduce his bleeding risk. (4) Type 2 diabetes mellitus: insulin SSI (5) HTN (hypertension): BP stable cont out pt meds AMBULATORY DYSFUNCTION : worsening of weakness /gait disturbance due to acute illness PT OT evaluation Patient is already active with outpatient physical therapy center for twice a week Per PT OT evaluation, recommend rehab, CM aware, trying to place to encompass CODE STATUS: Full code DVT prophylaxis: Eliquis Disposition: Plan to discharge to rehab Admission and Anticipated Discharge Date Admission Date: December 01, 2019 Subjective Pt is lying in bed, in no acute distress. No acute events overnight. Currently patient denies any complaints, denies any fevers, chills, chest pain, shortness of breath, abdominal pain, nausea or vomiting. Feels that he is back to baseline. Discussed with cardiology, Dr. Huff, patient started on Eliquis. [facility], Noel Chaudhry, who was able to provide coupon for Eliquis for the patient to help with financial burden. Telemetry reviewed, SR in the 70s to 80s. Patient's Nasreen updated over the phone. Review of Systems Review of Systems: All systems reviewed & are unremarkable except as noted in HPI & below Constitutional: no fever and no chills Respiratory: no cough and no dyspnea Cardiovascular: no chest pain and no palpitations Gastrointestinal: no abdominal pain, no nausea and no vomiting Physical Exam Physical Exam: Gen-elderly male, lying in bed, in no acute distress, AAO x 3, Head-NCAT, EOMI, PERRL, Anicteric Sclera, No Posterior Pharyngeal Erythema Neck-Supple, No JVD,No Masses Lungs-Clear to Auscultation Bilaterally, No Rales, No Rhonchi, No Wheezing Chest- RRR, + syst. murmur (3/6) Abdomen-Soft, Bowel Sounds Present, Non Tender, Non Distended,No Rigidity, No Guarding Musculoskeletal-Full Range of Motion Bilaterally, right upper extremity and right lower extremity strength 4 out of 5, left upper extremity and left lower extremity 5 out of 5 Extremities-no lower extremity edema, moves extremities spontaneously, right toe without any significant erythema or edema Neuro -alert and oriented, answers questions appropriately, no significant facial asymmetry noted, speech is slow slightly dysarthric, strength slightly decreased 4/5 on the right side, strength 5/5 on the left side, as above Psych-Euthymic effect Results & Data Results & Data ([facility]) Vital Signs (Past 12 Hours) Vital Signs Temp Pulse Resp BP Pulse Ox 12/05/19 19:12 36.8 C 81 18 118/75 97 12/05/19 15:46 36.8 C 83 20 139/79 98 12/05/19 11:17 36.3 C L 83 16 91/65 L 94 Laboratory Results 12/05/19 12/05/19 12/05/19 Range/Units Unknown 16:42 11:51 PT (9.0-12.0) Seconds INR (0.9-1.1) Sodium (136-145) mmol/L Potassium (3.5-5.1) mmol/L Chloride (98-107) mmol/L Carbon Dioxide (21-32) mmol/L Anion Gap (3-11) BUN (7-18) mg/dl Creatinine (0.6-1.4) mg/dl Est Cr Clr Drug Dosing ml/min Est GFR ( Amer) Est GFR (Non-Af Amer) BUN/Creatinine Ratio (10-20) Glucose (70-99) mg/dl POC Glucose 285 H 293 H (70-99) mg/dl Calcium (8.5-10.1) mg/dl Total Bilirubin (0.2-1) mg/dl AST (15-37) U/L ALT (12-78) U/L Alkaline Phosphatase (45-117) U/L Total Protein (6.4-8.2) gm/dl Albumin (3.4-5.0) gm/dl Globulin (2.5-4.0) gm/dl Albumin/Globulin Ratio (0.9-2) SARS-CoV-2 RNA (RT-PCR) Pending 12/05/19 12/05/19 12/05/19 Range/Units 08:16 08:16 07:29 PT 16.3 H (9.0-12.0) Seconds INR 1.6 H (0.9-1.1) Sodium 137 (136-145) mmol/L Potassium 4.1 (3.5-5.1) mmol/L Chloride 105 (98-107) mmol/L Carbon Dioxide 25 (21-32) mmol/L Anion Gap 7.0 (3-11) BUN 18 (7-18) mg/dl Creatinine 0.83 (0.6-1.4) mg/dl Est Cr Clr Drug Dosing 111.7 ml/min Est GFR ( Amer) 110.1 Est GFR (Non-Af Amer) 95.0 BUN/Creatinine Ratio 21.1 H (10-20) Glucose 191 H (70-99) mg/dl POC Glucose 199 H (70-99) mg/dl Calcium 8.8 (8.5-10.1) mg/dl Total Bilirubin 0.8 (0.2-1) mg/dl AST 7 L (15-37) U/L ALT 15 (12-78) U/L Alkaline Phosphatase 62 (45-117) U/L Total Protein 6.8 (6.4-8.2) gm/dl Albumin 2.8 L (3.4-5.0) gm/dl Globulin 4.0 (2.5-4.0) gm/dl Albumin/Globulin Ratio 0.7 L (0.9-2) SARS-CoV-2 RNA (RT-PCR) 12/04/19 Range/Units 20:25 PT (9.0-12.0) Seconds INR (0.9-1.1) Sodium (136-145) mmol/L Potassium (3.5-5.1) mmol/L Chloride (98-107) mmol/L Carbon Dioxide (21-32) mmol/L Anion Gap (3-11) BUN (7-18) mg/dl Creatinine (0.6-1.4) mg/dl Est Cr Clr Drug Dosing ml/min Est GFR ( Amer) Est GFR (Non-Af Amer) BUN/Creatinine Ratio (10-20) Glucose (70-99) mg/dl POC Glucose 188 H (70-99) mg/dl Calcium (8.5-10.1) mg/dl Total Bilirubin (0.2-1) mg/dl AST (15-37) U/L ALT (12-78) U/L Alkaline Phosphatase (45-117) U/L Total Protein (6.4-8.2) gm/dl Albumin (3.4-5.0) gm/dl Globulin (2.5-4.0) gm/dl Albumin/Globulin Ratio (0.9-2) SARS-CoV-2 RNA (RT-PCR) (1) Hematoma of left thigh Encounter type: initial encounter Qualified Code(s): S70.12XA - Contusion of left thigh, initial encounter
[2019-12-05] MEDS: ATORVASTATIN 40 MG TAB PO SCH (20:50)
[2019-12-06] MEDS ORDERED: INSULIN GLARGINE SOLOSTAR 100 UNITS/ML 3 ML PEN SC STA (00:37)
[2019-12-06 07:14] LABS: Hemoglobin 10.2 g/dL (14.0-18.0); Mean Corpuscular Hemoglobin 26.8 pg (25-34); Mean Corpuscular Volume 78.7 fL (80-100); Mean Platelet Volume 9.9 fL (7.4-10.4); Platelet Count 265 K/uL (130-400); RDW Coefficient of Variation 14.2 % (11.5-14.5); RDW Standard Deviation 40.2 fL (36.4-46.3); Red Blood Count 3.81 M/uL (4.7-6.1); White Blood Count 5.63 K/uL (4.8-10.8)
--- NOTE | 2019-12-06 07:19 | Hospitalist Progress Note ---
Date of Service December 06, 2019 Assessment & Plan (1) Hematoma of left thigh: Warfarin induced hematoma Left upper thigh spontaneous 7 cm hematoma secondary to supratherapeutic INR (warfarin use) Patient denies of any recent fall or trauma Anticoagulation kept on hold - to allow spontaneous resolution of hematoma, on admission No sign of sepsis, no fever or chills H&H remained stable Continue to monitor Elevated lactic acid: No evidence of sepsis, no fever chills, no evidence of infection on chest x-ray, on admission Possible secondary to large underlying hematoma? Ordered for gentle IV fluids Repeat lactic acid level in 4 hours, no indication for antibiotic treatment (2) Supratherapeutic INR: INR 9.7 possibly causing left thigh spontaneous hematoma coumadin /dual antiplatelets ( Aspirin 164 mg /Palvix ) on hold follow INR daily (3) H/O: CVA (cerebrovascular accident): Cerebral vascular disease status post bilateral frontal infarctions on 015 while on dual anti-platelet therapy with aspirin and clopidogrel, prompting initiation of warfarin recurrent stroke 11/2017 presented with INR> 9 dual antiplatelets and coumadin kept on hold on admission Patient had stroke alert on December 02 in the evening. Neurology consulted and been following patient. Patient reported dreamlike state, therefore EEG was performed to rule out seizure, EEG was negative. It is believed that this episode was secondary to hypotension. 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 Likely they will monitor. Given high risk for CVA , anticoagulation needs to be resumed, started Eliquis CAD, stable Severe -Cardiology following,at this time, continue with ongoing dual antiplatelet therapy with aspirin clopidogrel. Agree with trial of Eliquis, although this is an off label use of Eliquis in terms of prevention of stroke in the absence of atrial fibrillation, it would provide the benefit of avoiding labile INR measurements think therefore would reduce his bleeding risk History of osteomyelitis of right great toe -As outpatient, patient on suppressive chronic antibiotic, clindamycin -Patient stopped taking medication by himself Clindamycin 300 mg 3 times daily, resumed -suppressive chronic antibiotic for osteomyelitis of right great toe -Discussed this with the patient, and advised him that if he has any further issues with clindamycin he should discuss it with PCP and/or infectious disease doctor, and he should not stop the antibiotic by himself (4) Type 2 diabetes mellitus: insulin SSI (5) HTN (hypertension): BP stable cont out pt meds AMBULATORY DYSFUNCTION : worsening of weakness /gait disturbance due to acute illness PT OT evaluation Patient is already active with outpatient physical therapy center for twice a week Per PT OT evaluation, recommend rehab, CM aware, trying to place to encompass CODE STATUS: Full code DVT prophylaxis: Eliquis Disposition: Plan to discharge to rehab Admission and Anticipated Discharge Date Admission Date: December 01, 2019 Subjective No acute is overnight. Patient is lying in bed, in no acute distress. Patient denies any chest pain, shortness of breath, palpitations, abdominal pain, nausea or vomiting. Discussed with cardiology, Dr. Huff, patient started on Eliquis. Discussed with [facility] liaison, Noel Chaudhry, who was able to provide coupon for Eliquis for the patient to help with financial burden. Patient's Nasreen updated over the phone. Review of Systems Review of Systems: All systems reviewed & are unremarkable except as noted in HPI & below Constitutional: no fever and no chills Respiratory: no cough and no dyspnea Cardiovascular: no chest pain and no palpitations Gastrointestinal: no abdominal pain, no nausea and no vomiting Physical Exam Physical Exam: Gen-elderly male, lying in bed, in no acute distress, AAO x 3, Head-NCAT, EOMI, PERRL, Anicteric Sclera, No Posterior Pharyngeal Erythema Neck-Supple, No JVD,No Masses Lungs-Clear to Auscultation Bilaterally, No Rales, No Rhonchi, No Wheezing Chest- RRR, + syst. murmur (3/6) Abdomen-Soft, Bowel Sounds Present, Non Tender, Non Distended,No Rigidity, No Guarding Musculoskeletal-Full Range of Motion Bilaterally, right upper extremity and right lower extremity strength 4 out of 5, left upper extremity and left lower extremity 5 out of 5 Extremities-no lower extremity edema, moves extremities spontaneously, right toe without any significant erythema or edema Neuro -alert and oriented, answers questions appropriately, no significant facial asymmetry noted, speech is slow slightly dysarthric, strength slightly decreased 4/5 on the right side, strength 5/5 on the left side, as above Psych-Euthymic effect Results & Data Results & Data ([facility]) Vital Signs (Past 12 Hours) Vital Signs Temp Pulse Pulse Resp BP BP Pulse Ox 12/06/19 03:52 36.6 C 63 20 117/72 98 12/05/19 23:25 37.2 C 79 18 125/76 94 12/05/19 22:23 79 12/05/19 20:49 78 146/83 H Laboratory Results 12/06/19 12/06/19 12/06/19 Range/Units 07:42 06:53 06:53 WBC 5.63 (4.8-10.8) K/uL RBC 3.81 L (4.7-6.1) M/uL Hgb 10.2 L (14.0-18.0) g/dL Hct 30.0 L (42-52) % MCV 78.7 L (80-100) fL MCH 26.8 (25-34) pg MCHC 34.0 (32-36) g/dL RDW Std Deviation 40.2 (36.4-46.3) fL RDW Coeff of Caroline 14.2 (11.5-14.5) % Plt Count 265 (130-400) K/uL MPV 9.9 (7.4-10.4) fL PT (9.0-12.0) Seconds INR (0.9-1.1) Sodium (136-145) mmol/L Potassium (3.5-5.1) mmol/L Chloride (98-107) mmol/L Carbon Dioxide (21-32) mmol/L Anion Gap (3-11) BUN (7-18) mg/dl Creatinine (0.6-1.4) mg/dl Est Cr Clr Drug Dosing ml/min Est GFR ( Amer) Est GFR (Non-Af Amer) BUN/Creatinine Ratio (10-20) Glucose (70-99) mg/dl POC Glucose 186 H (70-99) mg/dl Estimat Average Glucose 180 mg/dl Hemoglobin A1c 7.9 H (4.5-5.6) % Calcium (8.5-10.1) mg/dl Phosphorus (2.5-4.9) mg/dl Magnesium (1.8-2.4) mg/dl Total Bilirubin (0.2-1) mg/dl AST (15-37) U/L ALT (12-78) U/L Alkaline Phosphatase (45-117) U/L Total Protein (6.4-8.2) gm/dl Albumin (3.4-5.0) gm/dl Globulin (2.5-4.0) gm/dl Albumin/Globulin Ratio (0.9-2) SARS-CoV-2 RNA (RT-PCR) 12/06/19 12/06/19 12/05/19 Range/Units 06:53 00:04 Unknown WBC (4.8-10.8) K/uL RBC (4.7-6.1) M/uL Hgb (14.0-18.0) g/dL Hct (42-52) % MCV (80-100) fL MCH (25-34) pg MCHC (32-36) g/dL RDW Std Deviation (36.4-46.3) fL RDW Coeff of Caroline (11.5-14.5) % Plt Count (130-400) K/uL MPV (7.4-10.4) fL PT (9.0-12.0) Seconds INR (0.9-1.1) Sodium 139 (136-145) mmol/L Potassium 3.8 (3.5-5.1) mmol/L Chloride 107 (98-107) mmol/L Carbon Dioxide 27 (21-32) mmol/L Anion Gap 5.0 (3-11) BUN 17 (7-18) mg/dl Creatinine 0.71 (0.6-1.4) mg/dl Est Cr Clr Drug Dosing 119.9 ml/min Est GFR ( Amer) 117.4 Est GFR (Non-Af Amer) 101.3 BUN/Creatinine Ratio 23.7 H (10-20) Glucose 114 H (70-99) mg/dl POC Glucose 207 H (70-99) mg/dl Estimat Average Glucose mg/dl Hemoglobin A1c (4.5-5.6) % Calcium 8.9 (8.5-10.1) mg/dl Phosphorus 3.3 (2.5-4.9) mg/dl Magnesium 1.8 (1.8-2.4) mg/dl Total Bilirubin (0.2-1) mg/dl AST (15-37) U/L ALT (12-78) U/L Alkaline Phosphatase (45-117) U/L Total Protein (6.4-8.2) gm/dl Albumin (3.4-5.0) gm/dl Globulin (2.5-4.0) gm/dl Albumin/Globulin Ratio (0.9-2) SARS-CoV-2 RNA (RT-PCR) Pending 12/05/19 12/05/19 12/05/19 Range/Units Unknown 20:50 20:49 WBC (4.8-10.8) K/uL RBC (4.7-6.1) M/uL Hgb (14.0-18.0) g/dL Hct (42-52) % MCV (80-100) fL MCH (25-34) pg MCHC (32-36) g/dL RDW Std Deviation (36.4-46.3) fL RDW Coeff of Caroline (11.5-14.5) % Plt Count (130-400) K/uL MPV (7.4-10.4) fL PT (9.0-12.0) Seconds INR (0.9-1.1) Sodium (136-145) mmol/L Potassium (3.5-5.1) mmol/L Chloride (98-107) mmol/L Carbon Dioxide (21-32) mmol/L Anion Gap (3-11) BUN (7-18) mg/dl Creatinine (0.6-1.4) mg/dl Est Cr Clr Drug Dosing ml/min Est GFR ( Amer) Est GFR (Non-Af Amer) BUN/Creatinine Ratio (10-20) Glucose (70-99) mg/dl POC Glucose 266 H 280 H (70-99) mg/dl Estimat Average Glucose mg/dl Hemoglobin A1c (4.5-5.6) % Calcium (8.5-10.1) mg/dl Phosphorus (2.5-4.9) mg/dl Magnesium (1.8-2.4) mg/dl Total Bilirubin (0.2-1) mg/dl AST (15-37) U/L ALT (12-78) U/L Alkaline Phosphatase (45-117) U/L Total Protein (6.4-8.2) gm/dl Albumin (3.4-5.0) gm/dl Globulin (2.5-4.0) gm/dl Albumin/Globulin Ratio (0.9-2) SARS-CoV-2 RNA (RT-PCR) Cancelled 12/05/19 12/05/19 12/05/19 Range/Units 20:48 16:42 11:51 WBC (4.8-10.8) K/uL RBC (4.7-6.1) M/uL Hgb (14.0-18.0) g/dL Hct (42-52) % MCV (80-100) fL MCH (25-34) pg MCHC (32-36) g/dL RDW Std Deviation (36.4-46.3) fL RDW Coeff of Caroline (11.5-14.5) % Plt Count (130-400) K/uL MPV (7.4-10.4) fL PT (9.0-12.0) Seconds INR (0.9-1.1) Sodium (136-145) mmol/L Potassium (3.5-5.1) mmol/L Chloride (98-107) mmol/L Carbon Dioxide (21-32) mmol/L Anion Gap (3-11) BUN (7-18) mg/dl Creatinine (0.6-1.4) mg/dl Est Cr Clr Drug Dosing ml/min Est GFR ( Amer) Est GFR (Non-Af Amer) BUN/Creatinine Ratio (10-20) Glucose (70-99) mg/dl POC Glucose 396 H* 285 H 293 H (70-99) mg/dl Estimat Average Glucose mg/dl Hemoglobin A1c (4.5-5.6) % Calcium (8.5-10.1) mg/dl Phosphorus (2.5-4.9) mg/dl Magnesium (1.8-2.4) mg/dl Total Bilirubin (0.2-1) mg/dl AST (15-37) U/L ALT (12-78) U/L Alkaline Phosphatase (45-117) U/L Total Protein (6.4-8.2) gm/dl Albumin (3.4-5.0) gm/dl Globulin (2.5-4.0) gm/dl Albumin/Globulin Ratio (0.9-2) SARS-CoV-2 RNA (RT-PCR) 12/05/19 12/05/19 Range/Units 08:16 08:16 WBC (4.8-10.8) K/uL RBC (4.7-6.1) M/uL Hgb (14.0-18.0) g/dL Hct (42-52) % MCV (80-100) fL MCH (25-34) pg MCHC (32-36) g/dL RDW Std Deviation (36.4-46.3) fL RDW Coeff of Caroline (11.5-14.5) % Plt Count (130-400) K/uL MPV (7.4-10.4) fL PT 16.3 H (9.0-12.0) Seconds INR 1.6 H (0.9-1.1) Sodium 137 (136-145) mmol/L Potassium 4.1 (3.5-5.1) mmol/L Chloride 105 (98-107) mmol/L Carbon Dioxide 25 (21-32) mmol/L Anion Gap 7.0 (3-11) BUN 18 (7-18) mg/dl Creatinine 0.83 (0.6-1.4) mg/dl Est Cr Clr Drug Dosing 111.7 ml/min Est GFR ( Amer) 110.1 Est GFR (Non-Af Amer) 95.0 BUN/Creatinine Ratio 21.1 H (10-20) Glucose 191 H (70-99) mg/dl POC Glucose (70-99) mg/dl Estimat Average Glucose mg/dl Hemoglobin A1c (4.5-5.6) % Calcium 8.8 (8.5-10.1) mg/dl Phosphorus (2.5-4.9) mg/dl Magnesium (1.8-2.4) mg/dl Total Bilirubin 0.8 (0.2-1) mg/dl AST 7 L (15-37) U/L ALT 15 (12-78) U/L Alkaline Phosphatase 62 (45-117) U/L Total Protein 6.8 (6.4-8.2) gm/dl Albumin 2.8 L (3.4-5.0) gm/dl Globulin 4.0 (2.5-4.0) gm/dl Albumin/Globulin Ratio 0.7 L (0.9-2) SARS-CoV-2 RNA (RT-PCR) (1) Hematoma of left thigh Encounter type: initial encounter Qualified Code(s): S70.12XA - Contusion of left thigh, initial encounter
[2019-12-06] MEDS: CLOPIDOGREL BISULFATE 75 MG TAB PO SCH (07:31)
[2019-12-06] MEDS: AMLODIPINE BESYLATE 5 MG TAB PO SCH (07:31)
[2019-12-06] MEDS: APIXABAN 5 MG TABLET PO SCH ×2 (07:32→20:32)
[2019-12-06] MEDS: ASPIRIN 81 MG ECTAB PO SCH (07:32)
[2019-12-06] MEDS: lisinopriL 10 MG TAB PO SCH (07:32)
[2019-12-06] MEDS: BACLOFEN 10 MG TAB PO SCH (07:32)
[2019-12-06] MEDS: carvediloL 12.5 MG TAB PO SCH ×2 (07:33→20:31)
[2019-12-06] MEDS: CLINDAMYCIN HCL 150 MG CAP PO SCH ×3 (07:34→20:32)
[2019-12-06 07:44] LABS: BUN Creatinine Ratio 23.7 (10-20); Calcium 8.9 mg/dl (8.5-10.1); Creatinine Clr Calc Pharmacy 119.9 ml/min; Est GFR (African American) 117.4; Est GFR (Non-African American) 101.3; Magnesium 1.8 mg/dl (1.8-2.4); Phosphorus 3.3 mg/dl (2.5-4.9); Potassium 3.8 mmol/L (3.5-5.1)
[2019-12-06 08:04] LABS: Estimated Average Glucose 180 mg/dl; Hemoglobin A1C 7.9 % (4.5-5.6)
[2019-12-06] MEDS: INSULIN ASPART 100 UNITS/ML 3 ML PEN SC SCH ×4 (08:52→21:09)
[2019-12-06] MEDS: INSULIN GLARGINE SOLOSTAR 100 UNITS/ML 3 ML PEN SC SCH ×2 (10:08→21:09)
--- NOTE | 2019-12-06 15:20 | Cardiology Progress Note ---
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 I recommend continuing his same antihypertensive regimen. Continue chronic dual antiplatelet therapy with aspirin and clopidogrel. Eliquis has been initiated and substitute of Coumadin. Although this is an off label use for Eliquis, it is her best option in order to prevent further applications related to labile INR measurements. If Eliquis is deemed to not be affordable, will transition back to Coumadin with caution. Will discontinue previous subcu heparin order which had been DVT prophylaxis now that he is back on Eliquis. Subjective Patient seen in follow-up. He is back to his baseline mental status. Physical Exam Physical Exam: Heart rate 76, most recent blood pressure was 175/79, but this is uncharacteristically high for him, and the previous measurement had been 135/65, respiratory rate 16, temperature 36.8 C, oxygen saturation 98% on room air Respiratory: normal respiratory effort, lungs clear to auscultation Cardiovascular: Rate/Rhythm: regular rhythm Heart Sounds: + murmur (I/ systolic murmur) Vessels: no JVD Extremities: + edema Gastrointestinal (Abdomen): normal bowel sounds, soft, nontender, no hepatosplenomegaly Neurologic: PERRL, EOMI, accommodation nl, no face palsy, no dysarthria Results & Data Vital Signs (Past 12 Hours) Vital Signs Temp Pulse Resp BP BP Pulse Ox 12/06/19 14:55 36.8 C 76 20 175/79 H 98 12/06/19 07:25 36.7 C 69 18 138/65 97 12/06/19 03:52 36.6 C 63 20 117/72 98 Laboratory Results CBC 12/06/19 Range/Units 06:53 WBC 5.63 (4.8-10.8) K/uL RBC 3.81 L (4.7-6.1) M/uL Hgb 10.2 L (14.0-18.0) g/dL Hct 30.0 L (42-52) % Plt Count 265 (130-400) K/uL Comprehensive Metabolic Panel 12/06/19 Range/Units 06:53 Sodium 139 (136-145) mmol/L Potassium 3.8 (3.5-5.1) mmol/L Chloride 107 (98-107) mmol/L Carbon Dioxide 27 (21-32) mmol/L BUN 17 (7-18) mg/dl Creatinine 0.71 (0.6-1.4) mg/dl Glucose 114 H (70-99) mg/dl Calcium 8.9 (8.5-10.1) mg/dl Intake and Output 12/06/19 12/06/19 12/06/19 06:59 14:59 22:59 Intake Total 710 / 710 Output Total 75 / 75 Balance 635 / 635 Intake: Oral 710 / 710 Output: Urine 75 / 75 Other: Other Intake Source SIPS # Urine Diapers 1 Weight 92 kg (1) Hematoma of left thigh Encounter type: initial encounter Qualified Code(s): S70.12XA - Contusion of left thigh, initial encounter
--- NOTE | 2019-12-06 16:22 | Communication Note ---
Date of Service: December 06, 2019 Spouse, Nasreen, called back. I spoke with her again.
[2019-12-06] MEDS: ATORVASTATIN 40 MG TAB PO SCH (20:30)
[2019-12-07] MEDS: APIXABAN 5 MG TABLET PO SCH ×2 (07:26→21:00)
[2019-12-07] MEDS: CLINDAMYCIN HCL 150 MG CAP PO SCH ×3 (07:26→21:00)
[2019-12-07] MEDS: carvediloL 12.5 MG TAB PO SCH ×2 (07:26→21:00)
[2019-12-07] MEDS: lisinopriL 10 MG TAB PO SCH (07:27)
[2019-12-07] MEDS: AMLODIPINE BESYLATE 5 MG TAB PO SCH (07:27)
[2019-12-07] MEDS: BACLOFEN 10 MG TAB PO SCH (07:28)
[2019-12-07] MEDS: ASPIRIN 81 MG ECTAB PO SCH (07:28)
--- NOTE | 2019-12-07 09:36 | Hospitalist Progress Note ---
Date of Service December 07, 2019 Assessment & Plan (1) Hematoma of left thigh: Warfarin induced hematoma Left upper thigh spontaneous 7 cm hematoma secondary to supratherapeutic INR (warfarin use) Patient denies of any recent fall or trauma Anticoagulation kept on hold - to allow spontaneous resolution of hematoma, on admission No sign of sepsis, no fever or chills H&H remained stable Continue to monitor Elevated lactic acid: No evidence of sepsis, no fever chills, no evidence of infection on chest x-ray, on admission Possible secondary to large underlying hematoma? Ordered for gentle IV fluids Repeat lactic acid level in 4 hours, no indication for antibiotic treatment (2) Supratherapeutic INR: INR 9.7 possibly causing left thigh spontaneous hematoma coumadin /dual antiplatelets ( Aspirin 164 mg /Palvix ) on hold follow INR daily (3) H/O: CVA (cerebrovascular accident): Cerebral vascular disease status post bilateral frontal infarctions on 015 while on dual anti-platelet therapy with aspirin and clopidogrel, prompting initiation of warfarin recurrent stroke 11/2017 presented with INR> 9 dual antiplatelets and coumadin kept on hold on admission Patient had stroke alert on December 02 in the evening. Neurology consulted and been following patient. Patient reported dreamlike state, therefore EEG was performed to rule out seizure, EEG was negative. It is believed that this episode was secondary to hypotension. 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 Likely they will monitor. Given high risk for CVA , anticoagulation needs to be resumed, started Eliquis CAD, stable Severe -Cardiology following,at this time, continue with ongoing dual antiplatelet therapy with aspirin clopidogrel. Agree with trial of Eliquis, although this is an off label use of Eliquis in terms of prevention of stroke in the absence of atrial fibrillation, it would provide the benefit of avoiding labile INR measurements think therefore would reduce his bleeding risk History of osteomyelitis of right great toe -As outpatient, patient on suppressive chronic antibiotic, clindamycin -Patient stopped taking medication by himself Clindamycin 300 mg 3 times daily, resumed -suppressive chronic antibiotic for osteomyelitis of right great toe -Discussed this with the patient, and advised him that if he has any further issues with clindamycin he should discuss it with PCP and/or infectious disease doctor, and he should not stop the antibiotic by himself (4) Type 2 diabetes mellitus: insulin SSI (5) HTN (hypertension): BP stable cont out pt meds AMBULATORY DYSFUNCTION : worsening of weakness /gait disturbance due to acute illness PT OT evaluation Patient is already active with outpatient physical therapy center for twice a week Per PT OT evaluation, recommend rehab, CM aware, trying to place to [facility] denied, possibly discharge to [facility] CODE STATUS: Full code DVT prophylaxis: Eliquis Disposition: Plan to discharge to rehab Admission and Anticipated Discharge Date Admission Date: December 01, 2019 Subjective No acute is overnight. Patient is lying in bed, in no acute distress. Patient denies any chest pain, shortness of breath, palpitations, abdominal pain, nausea or vomiting. Patient feels that his leg is feeling better, is not as tender to palpation. Discussed with cardiology, Dr. Huff, patient started on Eliquis. Discussed with [facility] liaison, Noel Chaudhry, who was able to provide coupon for Eliquis for the patient to help with financial burden. Patient's Nasreen updated at the bedside. Unfortunately [facility] was denied, further discussion about possible transfer to [facility] tomorrow. Review of Systems Review of Systems: All systems reviewed & are unremarkable except as noted in HPI & below Constitutional: no fever and no chills Respiratory: no cough and no dyspnea Cardiovascular: no chest pain and no palpitations Gastrointestinal: no abdominal pain, no nausea and no vomiting Physical Exam Physical Exam: Gen-elderly male, lying in bed, in no acute distress, AAO x 3, Head-NCAT, EOMI, PERRL, Anicteric Sclera, No Posterior Pharyngeal Erythema Neck-Supple, No JVD,No Masses Lungs-Clear to Auscultation Bilaterally, No Rales, No Rhonchi, No Wheezing Chest- RRR, + syst. murmur (3/6) Abdomen-Soft, Bowel Sounds Present, Non Tender, Non Distended,No Rigidity, No Guarding Musculoskeletal-Full Range of Motion Bilaterally, right upper extremity and right lower extremity strength 4 out of 5, left upper extremity and left lower extremity 5 out of 5 Extremities-no lower extremity edema, moves extremities spontaneously, right lower extremity slightly painful with movement, right toe without any significant erythema or edema Neuro -alert and oriented, answers questions appropriately, no significant facial asymmetry noted, speech is slow slightly dysarthric, strength slightly decreased 4/5 on the right side, strength 5/5 on the left side, as above Psych-Euthymic effect Results & Data Results & Data ([facility]) Vital Signs (Past 12 Hours) Vital Signs Temp Pulse Pulse Resp BP BP Pulse Ox 12/07/19 07:00 36.9 C 70 20 138/84 97 12/07/19 03:00 36.7 C 70 18 135/79 99 12/06/19 23:44 84 12/06/19 23:00 37 C 82 18 129/82 98 Laboratory Results 12/07/19 12/06/19 12/06/19 Range/Units 07:41 20:45 16:15 POC Glucose 141 H 250 H 257 H (70-99) mg/dl SARS-CoV-2 RNA (RT-PCR) (Negative) 12/06/19 12/05/19 Range/Units 11:38 Unknown POC Glucose 274 H (70-99) mg/dl SARS-CoV-2 RNA (RT-PCR) NEGATIVE (Negative) Medications Administered Current Inpatient Medications Acetaminophen (Tylenol) 650 mg PO Q4H PRN PRN Reason: Pain or Fever Stop: 12/31/19 15:34 Al Hydrox/Mg Hydrox/Simethicone (Maalox) 15 ml PO Q4H PRN PRN Reason: Dyspepsia Stop: 12/31/19 15:34 Amlodipine Besylate (Norvasc) 5 mg [facility] Stop: 01/01/20 17:14 Last Admin: 12/07/19 07:27 Dose: 5 mg Documented by: Apixaban (Eliquis) 5 mg PO BID [facility] Stop: 01/03/20 10:14 Last Admin: 12/07/19 07:26 Dose: 5 mg Documented by: Aspirin (Ecotrin Ectab) 81 mg PO QAM [facility] Stop: 01/02/20 14:14 Last Admin: 12/07/19 07:28 Dose: 81 mg Documented by: Atorvastatin Calcium (Lipitor) 80 mg PO QPM [facility] Stop: 12/31/19 20:59 Last Admin: 12/06/19 20:30 Dose: 80 mg Documented by: Baclofen (Lioresal) 5 mg PO QAM [facility] Stop: 01/01/20 08:59 Last Admin: 12/07/19 07:28 Dose: 5 mg Documented by: Carvedilol (Coreg) 12.5 mg PO BID [facility] Stop: 12/31/19 20:59 Last Admin: 12/07/19 07:26 Dose: 12.5 mg Documented by: Clindamycin HCl (Cleocin) 300 mg PO TID [facility] Stop: 01/02/20 14:14 Last Admin: 12/07/19 07:26 Dose: 300 mg Documented by: Clopidogrel Bisulfate (Plavix) 75 mg PO QAM [facility] Stop: 01/02/20 14:14 Last Admin: 12/06/19 07:31 Dose: 75 mg Documented by: Dextrose (Dextrose 50%) 25 - 50 ml IV UD PRN; Protocol PRN Reason: Hypoglycemia Protocol Stop: 12/31/19 17:32 Glucagon (Glucagen) 1 mg SQ UD PRN; Protocol PRN Reason: Hypoglycemia Protocol Stop: 12/31/19 17:32 Glucose (Dex4 Glucose) 4 - 8 tabs PO UD PRN; Protocol PRN Reason: Hypoglycemia Protocol Stop: 12/31/19 17:32 Glucose (Glucose 40%) 15 - 30 gm PO UD PRN; Protocol PRN Reason: Hypoglycemia Protocol Stop: 12/31/19 17:32 Insulin Aspart (Novolog Flexpen) 0 units SC ACHS [facility] Stop: 12/31/19 17:32 Last Admin: 12/06/19 21:09 Dose: 4 units Documented by: Insulin Glargine (Lantus Solostar Pen) 35 units SC BID [facility] Stop: 01/05/20 08:59 Last Admin: 12/06/19 21:09 Dose: 35 units Documented by: Ioversol (Optiray 320 125ml) 119 ml IV ONCE PRN PRN Reason: Interaction Checking Stop: 12/07/19 19:24 Last Admin: 12/03/19 19:28 Dose: 119 ml Documented by: Lisinopril (Zestril) 10 mg PO QAM [facility] Stop: 01/04/20 08:59 Last Admin: 12/07/19 07:27 Dose: 10 mg Documented by: Magnesium Hydroxide (Milk Of Magnesia) 30 ml PO Q12H PRN PRN Reason: Constipation Stop: 12/31/19 15:34 Miscellaneous (Carbohydrates For Hypoglycemia) 15 - 30 gm PO UD PRN PRN Reason: Hypoglycemia Protocol Stop: 12/31/19 17:32 Nitroglycerin (Nitrostat) 0.4 mg SL UD PRN PRN Reason: CHEST PAIN Stop: 12/31/19 17:32 Ondansetron HCl (Zofran) 4 mg IV Q6H PRN PRN Reason: Nausea Stop: 12/31/19 15:34 Polyethylene Glycol (Miralax Powder Packet) 17 gm PO DAILY PRN PRN Reason: Constipation Stop: 12/31/19 15:34 (1) Hematoma of left thigh Encounter type: initial encounter Qualified Code(s): S70.12XA - Contusion of left thigh, initial encounter
[2019-12-07] MEDS: CLOPIDOGREL BISULFATE 75 MG TAB PO SCH (09:38)
[2019-12-07] MEDS: INSULIN GLARGINE SOLOSTAR 100 UNITS/ML 3 ML PEN SC SCH ×2 (09:40→20:59)
[2019-12-07] MEDS: INSULIN ASPART 100 UNITS/ML 3 ML PEN SC SCH ×4 (09:41→20:58)
[2019-12-07] MEDS: ATORVASTATIN 40 MG TAB PO SCH (21:00)
[2019-12-08] MEDS: INSULIN ASPART 100 UNITS/ML 3 ML PEN SC SCH (08:43)
[2019-12-08] MEDS: INSULIN GLARGINE SOLOSTAR 100 UNITS/ML 3 ML PEN SC SCH (08:43)
[2019-12-08] MEDS: APIXABAN 5 MG TABLET PO SCH (08:44)
[2019-12-08] MEDS: BACLOFEN 10 MG TAB PO SCH (08:45)
[2019-12-08] MEDS: lisinopriL 10 MG TAB PO SCH (08:45)
[2019-12-08] MEDS: AMLODIPINE BESYLATE 5 MG TAB PO SCH (08:45)
[2019-12-08] MEDS: CLINDAMYCIN HCL 150 MG CAP PO SCH (08:45)
[2019-12-08] MEDS: carvediloL 12.5 MG TAB PO SCH (08:45)
[2019-12-08] MEDS: CLOPIDOGREL BISULFATE 75 MG TAB PO SCH (08:46)
[2019-12-08] MEDS: ASPIRIN 81 MG ECTAB PO SCH (08:46)
--- NOTE | 2019-12-08 08:52 | Hospitalist Progress Note ---
Date of Service December 08, 2019 Assessment & Plan (1) Hematoma of left thigh: Warfarin induced hematoma Left upper thigh spontaneous 7 cm hematoma secondary to supratherapeutic INR (warfarin use) Patient denies of any recent fall or trauma Anticoagulation kept on hold - to allow spontaneous resolution of hematoma, on admission No sign of sepsis, no fever or chills H&H remained stable Continue to monitor Elevated lactic acid: No evidence of sepsis, no fever chills, no evidence of infection on chest x-ray, on admission Possible secondary to large underlying hematoma? Ordered for gentle IV fluids on admission Repeat lactic acid level in 4 hours, no indication for antibiotic treatment (2) Supratherapeutic INR: INR 9.7 possibly causing left thigh spontaneous hematoma coumadin /dual antiplatelets ( Aspirin 164 mg /Palvix ) on hold follow INR daily while inpt (3) H/O: CVA (cerebrovascular accident): Cerebral vascular disease status post bilateral frontal infarctions on 05/30/2015 while on dual anti-platelet therapy with aspirin and clopidogrel, prompting initiation of warfarin recurrent stroke 11/2017 presented with INR> 9 dual antiplatelets and coumadin kept on hold on admission Patient had stroke alert on December 02 in the evening. Neurology consulted and been following patient. Patient reported dreamlike state, therefore EEG was performed to rule out seizure, EEG was negative. It is believed that this episode was secondary to hypotension. 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 Likely they will monitor. Given high risk for CVA , anticoagulation needs to be resumed, started Eliquis CAD, stable Severe -Cardiology following,at this time, continue with ongoing dual antiplatelet the rapy with aspirin clopidogrel. Agree with trial of Eliquis, although this is an off label use of Eliquis in terms of prevention of stroke in the absence of atrial fibrillation, it would provide the benefit of avoiding labile INR measurements think therefore would reduce his bleeding risk History of osteomyelitis of right great toe -As outpatient, patient on suppressive chronic antibiotic, clindamycin -Patient stopped taking medication by himself Clindamycin 300 mg 3 times daily, resumed -suppressive chronic antibiotic for osteomyelitis of right great toe -Discussed this with the patient, and advised him that if he has any further issues with clindamycin he should discuss it with PCP and/or infectious disease doctor, and he should not stop the antibiotic by himself (4) Type 2 diabetes mellitus: insulin SSI while inpatient Current hemoglobin A1c 7.9% -As outpatient follow-up with PCP (5) HTN (hypertension): BP stable cont out pt meds AMBULATORY DYSFUNCTION : worsening of weakness /gait disturbance due to acute illness PT OT evaluation Patient is already active with outpatient physical therapy center for twice a week Per PT OT evaluation, recommend rehab, CM aware, plan to discharge to [facility] CODE STATUS: Full code DVT prophylaxis: Eliquis Disposition: Plan to discharge to rehab Admission and Anticipated Discharge Date Admission Date: December 01, 2019 Subjective No acute events overnight. Patient is sitting up in a chair, in no acute d istress. Patient denies any chest pain, shortness of breath, palpitations, abdominal pain, nausea or vomiting. Patient feels that his leg is feeling better, is not as tender to palpation. Discussed with cardiology, Dr. Huff, patient started on Eliquis. [facility], who was able to provide coupon for Eliquis for the patient to help with financial burden. Patient's Nasreen currently at the bedside, plan to discharge to [facility] today. Review of Systems Review of Systems: All systems reviewed & are unremarkable except as noted in HPI & below Constitutional: no fever and no chills Respiratory: no cough and no dyspnea Cardiovascular: no chest pain and no palpitations Gastrointestinal: no abdominal pain, no nausea and no vomiting Physical Exam Physical Exam: Gen-elderly male, lying in bed, in no acute distress, AAO x 3, Head-NCAT, EOMI, PERRL, Anicteric Sclera, No Posterior Pharyngeal Erythema Neck-Supple, No JVD,No Masses Lungs-Clear to Auscultation Bilaterally, No Rales, No Rhonchi, No Wheezing Chest- RRR, + syst. murmur (3/6) Abdomen-Soft, Bowel Sounds Present, Non Tender, Non Distended,No Rigidity, No Guarding Musculoskeletal-Full Range of Motion Bilaterally, right upper extremity and right lower extremity strength 4 out of 5, left upper extremity and left lower extremity 5 out of 5 Extremities-no lower extremity edema, moves extremities spontaneously, right lower extremity slightly painful with movement, right toe without any s ignificant erythema or edema Neuro - alert and oriented, answers questions appropriately, no significant facial asymmetry noted, speech is slow slightly dysarthric, strength slightly decreased 4/5 on the right side, strength 5/5 on the left side, as above Psych- Euthymic effect Results & Data Results & Data ([facility]) Vital Signs (Past 12 Hours) Vital Signs Temp Pulse Pulse Resp BP BP Pulse Ox 12/08/19 08:07 36.6 C 72 20 151/82 H 100 12/08/19 05:00 85 12/08/19 04:00 36.6 C 66 20 132/77 96 12/07/19 23:29 37.1 C 69 20 117/72 97 (1) Hematoma of left thigh Encounter type: initial encounter Qualified Code(s): S70.12XA - Contusion of left thigh, initial encounter
[2019-12-08] MEDS ORDERED: SACCHAROMYCES BOULARDII 250 MG CAP PO SCH (09:00)
--- NOTE | 2019-12-08 09:34 | Discharge Summary ---
Date of Service December 08, 2019 Admission HPI Per Admitting Provider Pt is 59 y/o M with PMH CAD s/p CABG x 3, insulin dependent DM II, severe aortic stenosis, hx of recurrent CVA while on dual antiplateles , on Coumadin for anticoagulation Right foot drop, bilateral carotid stenosis, HTN, HLD, SMA stenosis-brought to the ER , due to symptoms of generalized weakness, dizzy spell lightheadedness presyncope, left thigh pain started this morning. At baseline patient has right-sided weakness/ambulatory dysfunction secondary to prior CVA, Independent in his ADLs This morning patient woke up not feeling well, felt dizzy and lightheaded, generalized weakness, needed assistance from his to sit up at the edge of bed, which is uncommon Had a throbbing pain on left upper thigh, no recent trauma or fall Feels nauseous, Not had any facial droop, no dysarthria no worsening of weakness or paresthesia in any extremities, Vomited twice prior to coming to ER Denies of any chest pain, no shortness breath or palpitation In the ER patient's vitals were stable Lab abnormalities: INR 9.7, Elevated lactic acid more than 2, No report of fever chills, no cough or shortness of breath, no diarrhea or loose stool, no blood in stool, no epistaxis or hematemesis Admission Exam Per Admitting Provider Constitutional: WD/WN, vitals as above no acute distress Eyes: PERRL, conjunctivae normal, anicteric sclerae ENMT: external ear and nose normal, oropharynx normal Neck: trachea midline, no thyromegaly Respiratory: normal respiratory effort, lungs clear to auscultation Cardiovascular: RRR, no murmur, no edema Gastrointestinal (Abdomen): Inspection/Auscultation: normal bowel sounds Percussion/Palpation: abdomen soft; abdomen nontender Musculoskeletal: Tenderness on the left upper thigh, no overlying skin changes, no injuries, no petechiae noted Skin: no rashes, no lesions and no wound Neurologic: PERRL, EOMI, accommodation nl, no face palsy, no dysarthria Chronic left-sided weakness from prior CVA Psychiatric: A+Ox3, euthymic affect Principal Diagnosis Hematoma, warfarin induced CAD, severe History of recurrent CVAs History of chronic osteomyelitis of right great toe 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 murmur (3/6) Abdomen- Soft, Bowel Sounds Present, Non Tender, Non Distended,No Rigidity, No Guarding Musculoskeletal- Full Range of Motion Bilaterally, right upper extremity and right lower extremity strength 4 out of 5, left upper extremity and left lower extremity 5 out of 5 Extremities- no lower extremity edema, moves extremities spontaneously, right lower extremity slightly painful with movement, right toe without any significant erythema or edema Neuro - alert and oriented, answers questions appropriately, no significant facial asymmetry noted, speech is slow slightly dysarthric, strength slightly decreased 4/5 on the right side, strength 5/5 on the left side, as above Psych- Euthymic effect Discharge Data Allergies Allergy/AdvReac Type Severity Reaction Status Date / Time No Known Allergies Allergy Verified 12/01/19 10:46 Consultations 12/01/19 15:16 ED Decision to Admit Stat 12/01/19 15:36 Consult Case Management - Discharge Planning Routine 12/02/19 16:50 Consult Cardiology Routine 12/03/19 14:14 Consult Neurology Routine 12/04/19 18:10 Consult Case Management - Discharge Planning Routine Ordered Studies 12/01/19 09:48 CT head/brain wo con Stat Impression: Chronic and age-related change. No acute process. No change from the prior exam. 12/01/19 14:52 US extremity non-vascular ltd Stat IMPRESSION: Area of palpable edema/nodularity appears to represent a complex hematoma. This appears to be intramuscular in location, with maximum dimensions of 7.5 x 3.5 x 3.0 cm. 12/02/19 14:54 CT head/brain wo con Stat Impression: No significant change compared to the prior study. No acute intracranial abnormality. Old infarcts are again noted. 12/02/19 17:24 MR brain wo con Urgent IMPRESSION: Suboptimal study due to motion artifact. No definite acute intracranial abnormality. 12/03/19 19:12 CTA head w con [CT angio head w con] Stat CTA neck with con [CT angio neck with con] Stat IMPRESSION: 1. There is no hemorrhage, mass effect, or evidence of acute territorial ischemia by CT criteria noting angiographic phase technique. 2. Atherosclerotic plaque causes less than 50% luminal narrowing at the origin of the internal carotid arteries bilaterally. 3. 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 4. There is approximately 50% focal stenosis of the intracranial left vertebral artery. 5. There are foci of high-grade stenosis present within the posterior cerebral arteries bilaterally. 6. Focal stenosis is seen within the M3 segment of the right middle cerebral artery. 7. No occluded vessels are identified. 12/03/19 19:13 CT head/brain wo con Stat IMPRESSION: There is no hemorrhage, mass effect, or evidence of acute territorial ischemia by CT criteria. Hospital Course (1) Hematoma of left thigh: Warfarin induced hematoma Left upper thigh spontaneous 7 cm hematoma secondary to supratherapeutic INR (warfarin use) Patient denies of any recent fall or trauma Anticoagulation kept on hold - to allow spontaneous resolution of hematoma, on admission No sign of sepsis, no fever or chills H&H remained stable Continue to monitor Elevated lactic acid: No evidence of sepsis, no fever chills, no evidence of infection on chest x-ray, on admission Possible secondary to large underlying hematoma? Ordered for gentle IV fluids on admission Repeat lactic acid level in 4 hours, no indication for antibiotic treatment (2) Supratherapeutic INR: INR 9.7 possibly causing left thigh spontaneous hematoma coumadin /dual antiplatelets ( Aspirin 164 mg /Palvix ) on hold follow INR daily while inpt (3) H/O: CVA (cerebrovascular accident): Cerebral vascular disease status post bilateral frontal infarctions on 1 07/31/2014 while on dual anti-platelet therapy with aspirin and clopidogrel, prompting initiation of warfarin recurrent stroke 11/2017 presented with INR> 9 dual antiplatelets and coumadin kept on hold on admission Patient had stroke alert on December 02 in the evening. Neurology consulted and been following patient. Patient reported dreamlike state, therefore EEG was performed to rule out seizure, EEG was negative. It is believed that this episode was secondary to hypotension. 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 Likely they will monitor. Given high risk for CVA , anticoagulation needs to be resumed, started Eliquis CAD, stable Severe -Cardiology following,at this time, continue with ongoing dual antiplatelet therapy with aspirin clopidogrel. Agree with trial of Eliquis, although this is an off label use of Eliquis in terms of prevention of stroke in the absence of atrial fibrillation, it would provide the benefit of avoiding labile INR measurements think therefore would reduce his bleeding risk History of osteomyelitis of right great toe -As outpatient, patient on suppressive chronic antibiotic, clindamycin -Patient stopped taking medication by himself Clindamycin 300 mg 3 times daily, resumed -suppressive chronic antibiotic for osteomyelitis of right great toe -Discussed this with the patient, and advised him that if he has any further issues with clindamycin he should discuss it with PCP and/or infectious disease doctor, and he should not stop the antibiotic by himself (4) Type 2 diabetes mellitus: insulin SSI while inpatient Current hemoglobin A1c 7.9% -As outpatient follow-up with PCP (5) HTN (hypertension): BP stable cont out pt meds AMBULATORY DYSFUNCTION : worsening of weakness /gait disturbance due to acute illness PT OT evaluation Patient is already active with outpatient physical therapy center for twice a week Per PT OT evaluation, recommend rehab, CM aware, plan to discharge to [facility] CODE STATUS: Full code DVT prophylaxis: Eliquis Disposition: Plan to discharge to rehab Total Time Total Time Spent Total Time Spent (In Minutes): 40 Total Time Includes: Examination of the Patient, Discharge Planning, Medication Reconciliation and Communication With Other Providers Discharge Plan Discharge Items Patient Disposition: Transfer Inpatient Rehab Fac Reason For Visit: [facility]NC[facility] Discharge Diagnosis: Hematoma, warfarin induced CAD, severe History of recurrent CVAs History of chronic osteomyelitis of right great toe 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 Make sure to take aspirin, Plavix, and Eliquis. Eliquis is a new medication for you. Aspirin dose was changed from previous higher dose to 81 mg a day. Your blood pressure medications were slightly adjusted as well. Take lisinopril 10 mg daily and amlodipine 5 mg daily. Recommended that you monitor your blood pressure, and record these numbers. Please make your primary care doctor and your log cut off sawyer aware about your blood pressures. Stop taking warfarin. Recommend to continue taking clindamycin, if any issues with medication arise, discuss this with infectious disease doctor. Do not recommend to stop this medication on your own. Recommend to take probiotic while you are on clindamycin. You can also obtain probiotic [id number]. Lastly, your hemoglobin A1c is 7.9%. Make sure to follow-up with your primary care doctor regarding your diabetes. Pending Studies at Discharge: No Stand-Alone Forms: My [facility] Skilled Items Patient informed of condition?: Yes DNR: No Discharge Level of Care: Acute rehab Communicable Disease: No Discharge Prognosis: Improving Lines: None Urinary Catheter: No Medications and DC Order Prescriptions: New acetaminophen 325 mg Tablet 650 mg PO Q4H PRN (Reason: pain) 14 Days Qty: 30 RF: 0 clindamycin HCl 150 mg Capsule 300 mg PO TID 30 Days Qty: 180 RF: 0 amlodipine [Norvasc] 5 mg Tablet 5 mg PO QAM 30 Days Qty: 30 RF: 0 aspirin 81 mg Tablet,Delayed Release (Dr/Ec) 81 mg PO QAM 30 Days Qty: 30 RF: 0 lisinopril 10 mg Tablet 10 mg PO QAM 30 Days Qty: 30 RF: 0 Saccharomyces boulardii [Florastor] 250 mg Capsule 250 mg PO DAILY 30 Days Qty: 30 RF: 0 Eliquis 5 mg Tablet 5 mg PO BID 30 Days Qty: 60 RF: 0 Continued carvedilol 12.5 mg tablet 12.5 mg PO BID RF: 0 insulin glargine [Lantus U-100 Insulin] 100 unit/mL solution 30 units SQ AMPM RF: 0 clopidogrel [Plavix] 75 mg tablet 75 mg PO QAM RF: 0 atorvastatin [Lipitor] 80 mg tablet 80 mg PO QPM RF: 0 metformin 1,000 mg tablet 1,000 mg PO BID RF: 0 baclofen 5 mg tablet 5 mg PO QAM RF: 0 insulin aspart U-100 [Novolog U-100 Insulin aspart] 100 unit/mL Solution 14 unit SUBCUT ACHS RF: 0 nitroglycerin 0.4 mg tablet, sublingual 0.4 mg sublingual UD RF: 0 Discontinued lisinopril 40 mg tablet 40 mg PO QAM RF: 0 warfarin [Coumadin] 7.5 mg tablet 7.5 mg PO QAM RF: 0 aspirin 81 mg Tablet,Chewable 162 mg PO DAILY RF: 0 Discharge Orders: Discharge Order (Routine); Ordered 12/08/19 Ordered By: Marcus Garrett/Other Patient Handouts: Managing Diabetes: The A1C Test Admission Data Admit Date/Time: 12/01/19 15:35 Attending Provider: Marcus Pike Admit Provider: Nicole Meyers Primary Care Provider: Dereck Zaman Other Providers: Nicole Meyers ; Meliton Huff ; Kasey Paulino ; Filippo Sebastian ; [facility] ; [facility]
== END 2019-12-08 11:15 | DRG 813 ==
LOC: ED 09:34 → 2W 15:35 → SUATTDRO 15:35 → 2W 16:53

== ENCOUNTER 2019-12-28 15:36 | Inpatient (IN) ==
[2019-12-28] MEDS ORDERED: SODIUM CHLORIDE 0.9% 500 ML IV SCH (16:00)
[2019-12-28 16:15] LABS: Basophils # (auto) 0.01 K/uL (0-0.2); Basophils % (auto) 0.2 %; Eosinophils % (auto) 3.2 %; Hematocrit (blood only) 39.1 % (42-52); Hemoglobin 12.4 g/dL (14.0-18.0); Immature Granulocytes # (auto) 0.01 K/uL (0.00-0.02); Immature Granulocytes % (auto) 0.2 %; Lymphocytes # (auto) 1.44 K/uL (1.2-3.4); Lymphocytes % (auto) 23.3 %; Mean Corpuscular Hemoglobin 26.4 pg (25-34); Mean Corpuscular Hgb Conc 31.7 g/dL (32-36); Mean Corpuscular Volume 83.2 fL (80-100); Mean Platelet Volume 10.7 fL (7.4-10.4); Monocytes # (auto) 0.53 K/uL (0.11-0.59); Monocytes % (auto) 8.6 %; Neutrophils % (auto) 64.5 %; Platelet Count 252 K/uL (130-400); RDW Coefficient of Variation 15.3 % (11.5-14.5); RDW Standard Deviation 46.9 fL (36.4-46.3); White Blood Count 6.19 K/uL (4.8-10.8)
[2019-12-28 16:33] LABS: INR 1.1 (0.9-1.1); Partial Thromboplastin Time 29.1 Seconds (21.0-31.0); Prothrombin Time 11.9 Seconds (9.0-12.0)
[2019-12-28 16:35] LABS: Albumin Level 3.3 gm/dl (3.4-5.0); BUN Creatinine Ratio 28.9 (10-20); Calcium 8.9 mg/dl (8.5-10.1); Magnesium 1.6 mg/dl (1.8-2.4); Potassium 3.7 mmol/L (3.5-5.1)
--- NOTE | 2019-12-28 16:39 | Electrocardiogram Report ---
Test Reason : Blood Pressure : / mmHG Vent. Rate : 078 BPM Atrial Rate : 078 BPM P-R Int : 142 ms QRS Dur : 088 ms QT Int : 380 ms P-R-T Axes : 033 005 122 degrees QTc Int : 433 ms Sinus rhythm with occasional Premature ventricular complexes Inferior infarct (cited on or before 13-OCT-2006) Anterolateral infarct (cited on or before 13-OCT-2006) Abnormal ECG When compared with ECG of 01-DEC-2019 09:46, Premature ventricular complexes are now Present Confirmed by Giorgio Aden ([id number]) on 12/28/2019 4:38:25 PM Referred By: Dereck Zaman Confirmed By:Giorgio Aden
[2019-12-28 16:45] LABS: Albumin Globulin Ratio 0.7 (0.9-2); Bilirubin,Total 0.3 mg/dl (0.2-1); Globulin 4.5 gm/dl (2.5-4.0); Thyroid Stimulating Hormone 1.09 uIu/ml (0.300-4.500); Total Protein 7.8 gm/dl (6.4-8.2); Troponin I 0.017 ng/ml (0-0.045)
--- NOTE | 2019-12-28 16:50 | XRay Report ---
XR chest 1V portable HISTORY: 59 years-old Male weakness acute weakness COMPARISON: Chest radiograph 12/01/2019 TECHNIQUE: Portable AP view of the chest FINDINGS: Cardiac mediastinal and hilar silhouettes are unchanged. Prior median sternotomy with probable CABG. Calcified plaque of the thoracic arch. No pneumothorax, pleural effusion, airspace consolidation or o vert pulmonary edema. Bones of the chest appear grossly intact. IMPRESSION: No acute process. ACT 112: Negative or not required by law. The above report was generated using voice recognition software. It may contain grammatical, syntax o r spelling errors. Electronically signed by: Antonino Gr M.D. 12/28/2019 4:48 PM
--- NOTE | 2019-12-28 17:18 | Emergency Department Note ---
Impression & Plan Weakness, Acute dehydration, Urinary tract infection ED Provider Note NAME: TREVIN POPE AGE: 59 SEX: M : 1960 ARRIVES VIA: Ambulance INFORMANT: Patient, the patient significant other ED PROVIDER(S): Giorgio Mendiola DO CHIEF COMPLAINT: Weakness HPI: The patient is a 59-year-old male who presented to the emergency department for an evaluation of generalized weakness. The patient has a history of stroke as well as coronary artery disease. His normally helps take care of him because of his previous history of stroke he requires significant help in care. His noticed today that he did not have as much urine output as usual. She was concerned he may be dehydrated. Normally the patient has difficulty taking enough fluids and she noticed that he was not urinating as much. He denies having any headache or fall. He denies having any chest pain or difficulty breathing. He states that he has been having just generalized weakness and feeling significant malaise. His had called to try to have home health come to the house and evaluate him but they were unable to do this and when she called his primary care physician they were advised to bring him to the emergency department because of his medical history especially his history of strokes. The patient has had no fever nausea or vomiting. ROS: See above HPI for pertinent positives & negatives. A total of 10 systems reviewed and were otherwise negative. PAST MEDICAL HISTORY: See Below PAST SURGICAL HISTORY: See Below FAMILY HISTORY: See Below SOCIAL HISTORY: See Below HOME MEDICATIONS: See Below ALLERGIES: See Below VITALS: See Below PHYSICAL EXAMINATION: GENERAL: The patient is awake and somewhat listless appearing. He does follow commands well and does not appear to be in pain. EYES: The conjunctivae are clear. The pupils are round and reactive. EARS, NOSE, MOUTH AND THROAT: The nose is without any evidence of any deformity. Mucous membranes are dry. NECK: The neck is nontender and supple. RESPIRATORY: Normal respiratory effort is noted there is no evidence of wheezing rhonchi or rales CARDIOVASCULAR: Regular rate and rhythm was noted to auscultation. Systolic murmur was suggested. GASTROINTESTINAL: The abdomen is soft. Abdomen is nontender. MUSCULOSKELETAL/EXTREMITIES: There is no evidence of gross deformity full range of motion is noted in the hips and shoulders. SKIN: Skin was warm and dry. There is pedal edema bilaterally. NEUROLOGIC: Patient is oriented to person place and situation. The patient has weakness in the right upper and right lower extremity consistent with previous stroke. Swaging Machine Operator strength appears somewhat symmetric. The patient is able to hold each leg off the bed for approximately 5 seconds however the right leg is weaker than the left. There is no significant facial droop noted. MEDICAL DECISION MAKING: The patient is a 59-year-old male who presented to the emergency department for an evaluation of generalized weakness. The patient's significant other does take very good care of him ever since he had a stroke. She does notice that sometimes he will become very weak especially with dehydration. She tries to keep up with his fluid intake but she noticed that he was not having as much urine output is normal. She is been trying to get him to drink more fluids but he was unable to. He became very weak and was unable to ambulate. His significant other tried to arrange home health but they were unable to do this. He called his primary care physician and they were instructed to come to the emergency department. The patient has generalized weakness. He does not appear to have unilateral symptoms at this time. The patient was treated with IV fluids in the emergency department. He was also treated with IV antibiotics for presumed urinary tract infection. I discussed the patient's laboratory and radiographic studies with him and his significant other. After he was treated with IV antibiotics we did try to do an ambulatory trial and the patient has significant weakness compared to his baseline. For this reason I will discuss his case with the on-call [facility] hospitalist. The patient was agreeable to this plan. Triage Nursing notes reviewed. Prior medical records reviewed Vital Signs: reviewed and remarkable for hypertension Differential diagnosis: Infection, dehydration, metabolic abnormality, hypo/hyperglycemia, electrolyte disturbance, anemia, hypoxia, cardiac sources, intracerebral event, toxicologic, neurologic, as well as other pathologies. ER treatment provided: See below Diagnostics interpreted by me: ECG: EKG was obtained in the emergency department. My interpretation is normal sinus rhythm at 78 bpm. Poor R wave progression was noted. There was inferior Q waves noted with minimal ST segment elevation in the inferior leads. There wa s also high lateral ST depressions with T wave inversions noted. This was compared to a tracing from November 302019. No significant changes were noted. Cardiac Monitoring: An order was placed for continuous cardiac monitoring. The monitor shows a rate of 85 with sinus rhythm. Laboratory studies: As stated above and show below. Imaging studies: See below Consultation(s): 194: The [facility] hospitalist was consulted about this patient. ED COURSE: Procedures: none PDMP:reviewed and no issues Critical Care: None Past Med/Surg History Medical History Aortic valve stenosis (Chronic) CAD (coronary artery disease) (Chronic) Carotid stenosis (Chronic) Dyslipidemia (Chronic) Hemiplegia affecting right dominant side (Chronic) HTN (hypertension) (Chronic) Monoplegia affecting right dominant side (Chronic) Obesity (Chronic) Proliferative diabetic retinopathy (Chronic) Retinal edema (Chronic) Right foot drop (Chronic) Status post cerebrovascular accident (Chronic) Status post myocardial infarction (Chronic) Superior mesenteric artery stenosis (Chronic) Type 2 diabetes mellitus (Chronic) Surgical History Hx of vitrectomy (Acute) S/P angioplasty with stent (Chronic) S/P CABG x 3 (Chronic) S/P PTCA (percutaneous transluminal coronary angioplasty) (Chronic) Family History Father Heart disease Social History Smoking Status: Former smoker Tobacco Type: Cigarettes Second Hand Exposure: No; Hx Alcohol Use: No Hx Substance Use: No Preferred Language: Nepali Communication Ability: Effective Visual Impairment: No Limitations Hearing Ability: Normal Industrial Mechanic Required: No Beliefs That Will Affect Care: None marital status: Current Living Situation: Spouse Current Living Situation Comment: own home current occupational status: disabled Feels Safe at Home: Yes Allergies Allergies Allergy/AdvReac Type Severity Reaction Status Date / Time No Known Allergies Allergy Verified 12/01/19 10:46 Home Meds Home Medications Medication Instructions Recorded Confirmed atorvastatin 80 mg tablet 80 mg PO QPM 07/10/18 12/01/19 baclofen 5 mg tablet 5 mg PO QAM tab 07/10/18 12/01/19 carvedilol 12.5 mg tablet 12.5 mg PO BID 07/10/18 12/01/19 clopidogrel 75 mg tablet 75 mg PO QAM 07/10/18 12/01/19 insulin glargine 100 unit/mL 30 units SQ AMPM ml 07/10/18 12/01/19 subcutaneous solution metformin 1,000 mg tablet 1,000 mg PO BID 07/10/18 12/01/19 insulin aspart U-100 [Novolog 14 unit SUBCUT ACHS 09/08/18 12/01/19 U-100 Insulin aspart] nitroglycerin 0.4 mg SUBLINGUAL UD 08/09/19 12/01/19 Previous Rx's Medication Instructions Recorded Saccharomyces boulardii [Florastor] 250 mg PO DAILY 30 Days #30 cap 12/08/19 amlodipine [Norvasc] 5 mg PO QAM 30 Days #30 tab 12/08/19 apixaban [Eliquis] 5 mg PO BID 30 Days #60 tab 12/08/19 aspirin 81 mg PO QAM 30 Days #30 tab 12/08/19 clindamycin HCl 300 mg PO TID 30 Days #180 cap 12/08/19 lisinopril 10 mg PO QAM 30 Days #30 tab 12/08/19 Results & Data (ED) Vital Signs Vital Signs - 24 hr 12/28/19 15:45 12/28/19 17:57 12/28/19 18:57 Temperature 36.5 C Temperature Source Oral Pulse Rate 74 Pulse Rate [Left] 76 67 Pulse Rhythm Regular Pulse Rhythm [Left] Regular Regular Pulse Strength Normal Pulse Strength [Left] Normal Normal Respiratory Rate 18 18 18 Respiratory Effort / Characteristics Non-Labored Spontaneous Non-Labored Spontaneous Non-Labored Spontaneous Respiratory Depth Normal Normal Normal Respiratory Pattern Regular Regular Regular Blood Pressure 144/64 H Blood Pressure [Right Arm] 156/70 H 147/75 H Blood Pressure Mean 90 Blood Pressure Mean [Right Arm] 98 99 Blood Pressure Position Lying Blood Pressure Position [Right Arm] Lying Lying Pulse Oximetry 97 98 98 Oxygen Delivery Method Nasal Cannula Room Air Room Air Oxygen Flow Rate 2 Sepsis Recent Fever Within 48 Hours No Sepsis New/Unexplained Change in Mental Status No Sepsis Action Taken by Nursing No Action Required Home Medications Current Medication List: was personally reviewed by me Laboratory Data Attestation: I reviewed the patient's lab results. Result diagrams: 12/28/19 16:00 12/28/19 16:00 Lab Results 12/28/19 12/28/19 12/28/19 Range/Units 16:00 16:00 16:00 WBC 6.19 (4.8-10.8) K/uL RBC 4.70 (4.7-6.1) M/uL Hgb 12.4 L (14.0-18.0) g/dL Hct 39.1 L (42-52) % MCV 83.2 (80-100) fL MCH 26.4 (25-34) pg MCHC 31.7 L (32-36) g/dL RDW Std Deviation 46.9 H (36.4-46.3) fL RDW Coeff of Caroline 15.3 H (11.5-14.5) % Plt Count 252 (130-400) K/uL MPV 10.7 H (7.4-10.4) fL Immature Gran % (Auto) 0.2 % Neut % (Auto) 64.5 % Lymph % (Auto) 23.3 % [place] % (Auto) 8.6 % Eos % (Auto) 3.2 % Baso % (Auto) 0.2 % Neut # (Auto) 4.00 (1.4-6.5) K/uL Lymph # (Auto) 1.44 (1.2-3.4) K/uL [place] # (Auto) 0.53 (0.11-0.59) K/uL Eos # (Auto) 0.20 (0-0.5) K/uL Baso # (Auto) 0.01 (0-0.2) K/uL Immature Gran # (Auto) 0.01 (0.00-0.02) K/uL PT 11.9 (9.0-12.0) Seconds INR 1.1 (0.9-1.1) APTT 29.1 (21.0-31.0) Seconds PTT Ratio 1.0 Sodium 142 (136-145) mmol/L Potassium 3.7 (3.5-5.1) mmol/L Chloride 109 H (98-107) mmol/L Carbon Dioxide 25 (21-32) mmol/L Anion Gap 8.0 (3-11) BUN 25 H (7-18) mg/dl Creatinine 0.85 (0.6-1.4) mg/dl Est Cr Clr Drug Dosing 106.0 ml/min Est GFR ( Amer) 109.0 Est GFR (Non-Af Amer) 94.0 BUN/Creatinine Ratio 28.9 H (10-20) Glucose 160 H (70-99) mg/dl Calcium 8.9 (8.5-10.1) mg/dl Magnesium 1.6 L (1.8-2.4) mg/dl Total Bilirubin 0.3 (0.2-1) mg/dl AST 7 L (15-37) U/L ALT 16 (12-78) U/L Alkaline Phosphatase 101 (45-117) U/L Total Creatine Kinase 88 (39-308) U/L Troponin I 0.017 (0-0.045) ng/ml Total Protein 7.8 (6.4-8.2) gm/dl Albumin 3.3 L (3.4-5.0) gm/dl Globulin 4.5 H (2.5-4.0) gm/dl Albumin/Globulin Ratio 0.7 L (0.9-2) TSH 1.090 (0.300-4.500) uIu/ml Urine Color Urine Appearance (Clear) Urine pH (4.5-7.5) Ur Specific [place] (1.000-1.030) Urine Protein (Negative) Urine Glucose (UA) (Negative) Urine Ketones (Negative) Urine Blood (Negative) Urine Nitrite (Negative) Urine Bilirubin (Negative) Urine Urobilinogen (Negative) Ur Leukocyte Esterase (Negative) Urine WBC (Auto) (0-5) /hpf Urine RBC (Auto) (0-4) /hpf U Hyaline Cast (Auto) (0-5) /lpf U Epithel Cells (Auto) (0-5) /lpf Urine Bacteria (Auto) (Negative) 12/28/19 Range/Units 17:52 WBC (4.8-10.8) K/uL RBC (4.7-6.1) M/uL Hgb (14.0-18.0) g/dL Hct (42-52) % MCV (80-100) fL MCH (25-34) pg MCHC (32-36) g/dL RDW Std Deviation (36.4-46.3) fL RDW Coeff of Caroline (11.5-14.5) % Plt Count (130-400) K/uL MPV (7.4-10.4) fL Immature Gran % (Auto) % Neut % (Auto) % Lymph % (Auto) % [place] % (Auto) % Eos % (Auto) % Baso % (Auto) % Neut # (Auto) (1.4-6.5) K/uL Lymph # (Auto) (1.2-3.4) K/uL [place] # (Auto) (0.11-0.59) K/uL Eos # (Auto) (0-0.5) K/uL Baso # (Auto) (0-0.2) K/uL Immature Gran # (Auto) (0.00-0.02) K/uL PT (9.0-12.0) Seconds INR (0.9-1.1) APTT (21.0-31.0) Seconds PTT Ratio Sodium (136-145) mmol/L Potassium (3.5-5.1) mmol/L Chloride (98-107) mmol/L Carbon Dioxide (21-32) mmol/L Anion Gap (3-11) BUN (7-18) mg/dl Creatinine (0.6-1.4) mg/dl Est Cr Clr Drug Dosing ml/min Est GFR ( Amer) Est GFR (Non-Af Amer) BUN/Creatinine Ratio (10-20) Glucose (70-99) mg/dl Calcium (8.5-10.1) mg/dl Magnesium (1.8-2.4) mg/dl Total Bilirubin (0.2-1) mg/dl AST (15-37) U/L ALT (12-78) U/L Alkaline Phosphatase (45-117) U/L Total Creatine Kinase (39-308) U/L Troponin I (0-0.045) ng/ml Total Protein (6.4-8.2) gm/dl Albumin (3.4-5.0) gm/dl Globulin (2.5-4.0) gm/dl Albumin/Globulin Ratio (0.9-2) TSH (0.300-4.500) uIu/ml Urine Color Yellow Urine Appearance Clear (Clear) Urine pH 5.0 (4.5-7.5) Ur Specific [place] 1.035 H (1.000-1.030) Urine Protein Negative (Negative) Urine Glucose (UA) Negative (Negative) Urine Ketones Negative (Negative) Urine Blood Negative (Negative) Urine Nitrite Negative (Negative) Urine Bilirubin Negative (Negative) Urine Urobilinogen Negative (Negative) Ur Leukocyte Esterase 1+ H (Negative) Urine WBC (Auto) >30 H (0-5) /hpf Urine RBC (Auto) 0-4 (0-4) /hpf U Hyaline Cast (Auto) 10-30 H (0-5) /lpf U Epithel Cells (Auto) 0-5 (0-5) /lpf Urine Bacteria (Auto) Negative (Negative) Administered Medications Discontinued Medications Sodium Chloride (Nss) 500 mls @ 999 mls/hr IV .Q31M SUMA Stop: 12/28/19 16:30 Last Infusion: 12/28/19 17:07 Dose: 0 mls/hr Documented by: [id number] Admin: 12/28/19 16:24 Dose: 999 mls/hr Documented by: [id number] Sodium Chloride (Nss 1000ml) 500 mls @ 999 mls/hr IV .Q31M ONE Stop: 12/28/19 17:49 Last Infusion: 12/28/19 18:37 Dose: 0 mls/hr Documented by: [id number] Admin: 12/28/19 17:54 Dose: 999 mls/hr Documented by: [id number] Ceftriaxone Sodium (Rocephin) 1,000 mg in 50 mls @ 100 mls/hr IV NOW STA Stop: 12/28/19 18:55 Last Infusion: 12/28/19 19:48 Dose: 0 mls/hr Documented by: [id number] Admin: 12/28/19 18:56 Dose: 100 mls/hr Documented by: [id number] Magnesium Oxide (Mag-Ox) 400 mg PO ONE ONE Stop: 12/28/19 17:36 Last Admin: 12/28/19 17:54 Dose: 400 mg Documented by: [id number] Imaging Data Radiologist's Impression: XR chest 1V portable HISTORY: 59 years-old Male weakness acute weakness COMPARISON: Chest radiograph 12/01/2019 TECHNIQUE: Portable AP view of the chest FINDINGS: Cardiac mediastinal and hilar silhouettes are unchanged. Prior median sternotomy with probable CABG. Calcified plaque of the thoracic arch. No pneumothorax, pleural effusion, airspace consolidation or overt pulmonary edema. Bones of the chest appear grossly intact. IMPRESSION: No acute process. ACT 112: Negative or not required by law. The above report was generated using voice recognition software. It may contain grammatical, syntax or spelling errors. Electronically signed by: Antonino Gr M.D. 12/28/2019 4:48 PM Dictated: 12/28/19 1648 Transcribed: 12/28/[address] SCAN OF THE BRAIN WITHOUT IV CONTRAST CLINICAL HISTORY: Generalized weakness. COMPARISON STUDY: CT of the brain dated 12/03/2019. TECHNIQUE: Unenhanced axial CT scan of the brain is performed from the vertex to the skull base. A dose lowering technique was utilized adhering to the principles of ALARA. CT DOSE: 614.27 mGy.cm FINDINGS: Brain parenchyma: There are age-related involutional changes noting moderate subcortical and periventricular microangiopathic change. There is no hemorrhage, mass effect, or evidence of acute territorial ischemia by CT criteria. Chronic lacunar infarct identified in the right cerebral hemisphere, the sarabjit, the basal ganglia, the thalami, and the caudate heads. Rose-white matter differentiation is preserved. No extra-axial fluid collection is seen. Ventricles, sulci, cisterns: Prominent secondary to involutional change. Intracranial vasculature: There is atherosclerotic calcification of the cavernous carotid and vertebral arteries. Calvarium: Unremarkable. Sinuses and mastoids: There is trace mucosal thickening in the right maxillary antrum. The remaining paranasal sinuses are clear. The mastoid air cells are well pneumatized. Orbits: The bony orbits are grossly intact. IMPRESSION: There is no hemorrhage, mass effect, or evidence of acute territorial ischemia by CT criteria. ACT 112: Negative or not required by law. Electronically signed by: Donny Fernando M.D. 12/28/2019 5:30 PM Dictated: 12/28/197 Transcribed: 12/28/191726 Blood Pressure Blood Pressure Findings: Elevated blood pressure Blood Pressure Disposition: Referred to patients primary care provider Discharge Plan Visit Data Chief Complaint: Dehydration ED Provider: Giorgio Mendiola Discharge Problem: Weakness, Acute dehydration, Urinary tract infection Patient Disposition: Being Evaluated by Hospitalist Condition: Good Forms Stand Alone Forms: My In[employer] Prescriptions Prescriptions: No Action carvedilol 12.5 mg tablet 12.5 mg PO BID RF: 0 insulin glargine [Lantus U-100 Insulin] 100 unit/mL solution 30 units SQ AMPM RF: 0 clopidogrel [Plavix] 75 mg tablet 75 mg PO QAM RF: 0 atorvastatin [Lipitor] 80 mg tablet 80 mg PO QPM RF: 0 metformin 1,000 mg tablet 1,000 mg PO BID RF: 0 baclofen 5 mg tablet 5 mg PO QAM RF: 0 insulin aspart U-100 [Novolog U-100 Insulin aspart] 100 unit/mL Solution 14 unit SUBCUT ACHS RF: 0 clindamycin HCl 150 mg Capsule 300 mg PO TID 30 Days Qty: 180 RF: 0 amlodipine [Norvasc] 5 mg Tablet 5 mg PO QAM 30 Days Qty: 30 RF: 0 aspirin 81 mg Tablet,Delayed Release (Dr/Ec) 81 mg PO QAM 30 Days Qty: 30 RF: 0 lisinopril 10 mg Tablet 10 mg PO QAM 30 Days Qty: 30 RF: 0 Saccharomyces boulardii [Florastor] 250 mg Capsule 250 mg PO DAILY 30 Days Qty: 30 RF: 0 Eliquis 5 mg Tablet 5 mg PO BID 30 Days Qty: 60 RF: 0 nitroglycerin 0.4 mg tablet, sublingual 0.4 mg sublingual UD RF: 0 Referrals Referrals: Dereck Zaman DO [Primary Care Provider] - Discharge Problem: Urinary tract infection Qualifiers: Urinary tract infection type: site unspecified Hematuria presence: without hematuria Qualified Code(s): N39.0 - Urinary tract infection, site not specified
[2019-12-28] MEDS ORDERED: SODIUM CHLORIDE 0.9% 1000ML 500 ML IV ONE (17:19)
--- NOTE | 2019-12-28 17:32 | CT Scan Report ---
CT SCAN OF THE BRAIN WITHOUT IV CONTRAST CLINICAL HISTORY: Generalized weakness. COMPARISON STUDY: CT of the brain dated 12/03/2019. TECHNIQUE: Unenhanced axial CT scan of the brain is performed from the vertex to the skull base. A do se lowering technique was utilized adhering to the principles of ALARA. CT DOSE: 614.27 mGy.cm FINDINGS: Brain parenchyma: There are age-related involutional changes noting moderate subcortical and periven tricular microangiopathic change. There is no hemorrhage, mass effect, or evidence of acute territori al ischemia by CT criteria. Chronic lacunar infarct identified in the right cerebral hemisphere, the sarabjit, the basal ganglia, the thalami, and the caudate heads. Rose-white matter differentiation is pre served. No extra-axial fluid collection is seen. Ventricles, sulci, cisterns: Prominent secondary to involutional change. Intracranial vasculature: There is atherosclerotic calcification of the cavernous carotid and vertebr al arteries. Calvarium: Unremarkable. Sinuses and mastoids: There is trace mucosal thickening in the right maxillary antrum. The remaining paranasal sinuses are clear. The mastoid air cells are well pneumatized. Orbits: The bony orbits are grossly intact. IMPRESSION: There is no hemorrhage, mass effect, or evidence of acute territorial ischemia by CT kiera ojeda. ACT 112: Negative or not required by law. Electronically signed by: Donny Fernando M.D. 12/28/2019 5:30 PM
[2019-12-28] MEDS ORDERED: MAGNESIUM OXIDE 400 MG TAB PO ONE (17:35)
[2019-12-28 18:05] LABS: Appearance Urine Clear (Clear); Bacteria Urine Automated Negative (Negative); Bilirubin Urine Negative (Negative); Blood Urine Negative (Negative); Color Urine Yellow; Epithelial Cell Urine Auto 0-5 /lpf (0-5); Glucose Urine UA Negative (Negative); Ketones Urine Negative (Negative); Leukocyte Esterase Urine 1+ (Negative); Nitrite Urine Negative (Negative); Protein Urine Negative (Negative); RBC Urine Automated 0-4 /hpf (0-4); Specific Gravity Urine 1.035 (1.000-1.030); Urobilinogen Urine Negative (Negative); WBC Urine Automated >30 /hpf (0-5)
[2019-12-28] MEDS ORDERED: cefTRIAXone SODIUM 1,000 MG/50 ML BAG IV STA (18:26)
[2019-12-28] MEDS ORDERED: MAGNESIUM SULFATE / D5W 1 GM/100 ML BAG IV ONE (23:41)
[2019-12-28] MEDS ORDERED: NITROGLYCERIN SL 0.4 MG/TAB TAB SL PRN (23:41)
[2019-12-28] MEDS ORDERED: ACETAMINOPHEN 325 MG TAB PO PRN (23:41)
--- NOTE | 2019-12-29 00:26 | History and Physical Report ---
DATE OF ADMISSION: 12/28/2019 CHIEF COMPLAINT: Generalized weakness and ambulatory dysfunction. HISTORY OF PRESENT ILLNESS: This 59-year-old male with past medical history significant for CAD status post CABG, insulin-dependent diabetes type 2, severe aortic stenosis, history of recurrent CVA while on dual anti-platelets so was started on Coumadin. But last admission changed to [place], history of right foot drop, bilateral carotid stenosis, hypertension, hyperlipidemia, SMA stenosis, who lives with his . He was recently in the hospital and discharged on 12/08/2019. He went to [facility], when he came back home, he was tested for COVID on December 04 and was negative. The patient is currently resting comfortably and hemodynamically stable, but at home as per the patient and patient's , the patient is having some low-grade temperature for last few days and highest was 100.8 degrees a couple of days ago, he was taking Tylenol .Today was feeling generalized weak, they could not get him up from the bed, and the home health nurse called the PCP and advised to bring him to the hospital. The patient is also last few days having decreasing amount of urine, he was going to bathroom frequently but in small amounts, but no burning micturition. No shortness of breath, no cough, no nausea, no vomiting. Normal bowel movements, no blood in stools or black stools. No chest pain, no loss of sense of smell or taste. No sore throat, no runny nose. No headache, no ear aches. In the ER, they try to give him fluids, antibiotics, and ambulate, but he was having difficulty ambulation, so we were called for admission. UA was positive. Electrolytes are okay except for magnesium of 1.6. No white count. Urine slightly positive. CT head was no acute findings. Chest x-ray, no acute findings. ALLERGIES: No known drug allergies. PAST MEDICAL HISTORY: As mentioned above. PAST SURGICAL HISTORY: CABG in 2006, colonoscopy with biopsies, multiple colonoscopies, left heart catheterization, multiple times EGD with endoscopic ultrasound, injection of eye drugs, laser trabeculoplasty, partial removal of eye fluid. MEDICATIONS: The patient currently on amlodipine 5 mg p.o. daily, Eliquis 5 mg p.o. b.i.d., aspirin 81 mg p.o. a.m., atorvastatin 80 mg p.o. q.a.m., baclofen 5 mg p.o. a.m., Coreg 12.5 mg p.o. b.i.d., clindamycin 300 mg p.o. t.i.d., Plavix 75 mg p.o. a.m., insulin NovoLog 10 units subcutaneous before meals, insulin glargine 20 units subQ a.m. p.m., lisinopril 10 mg p.o. a.m., metformin 1000 mg p.o. b.i.d., nitroglycerin 0.4 mg sublingual p.r.n., Florastor 250 mg p.o. daily. FAMILY HISTORY: Significant for father has heart disorder status post CABG and hypertension. Maternal grandmother had diabetes and stroke. Paternal grandmother had stroke. SOCIAL HISTORY: , lives with . Former smoker, quit in 1981, smoked quarter pack for 10 years. Alcohol rarely. No drug use. REVIEW OF SYMPTOMS: As per HPI. Rest of review of symptoms negative. PHYSICAL EXAMINATION: GENERAL: The patient is of moderate build, not in acute distress. VITAL SIGNS: Temperature 36.5, pulse 71, respiratory rate 16, blood pressure 135/80, oxygen 97% on room air. HEENT: No pallor, no icterus. Pupils equal, round, reactive to light. Extraocular muscles intact. NECK: No JVD, no neck masses. CARDIOVASCULAR: S1, S2 heard, regular rate and rhythm, no murmur, no gallop. RESPIRATORY SYSTEM: Normal AP diameter. No accessory muscle use. No wheezing, no crackles. ABDOMEN: Soft, bowel sounds present, nontender. No distention. CENTRAL NERVOUS SYSTEM: Alert and oriented. Some mild right sided weakness. Ucsmqt-[id number]-yplx test normal. Speech is clear. Can lift his extremities. Sensation is intact. EXTREMITIES: No edema, no erythema. LABORATORY DATA: WBC 6.1, hemoglobin 12.4, hematocrit 39.1, platelets 252. PT 11.9, INR 1.1, APTT 29.1. Sodium 142, potassium 3.7, chloride 109, bicarbonate 25, BUN 25, creatinine 0.8, serum glucose 160, calcium 8.9, magnesium 1.6, total bilirubin 0.3, AST 7, ALT 16, alkaline phosphatase 101, total creatinine kinase 88, troponin I 0.017. TSH 1.09. Urinalysis +1 leukocyte esterase. Chest x-ray: No acute process. CT head, no acute process. EKG: Sinus rhythm with occasional PVCs at a rate of 78, no acute ST changes seen. ASSESSMENT AND PLAN: This is a 59-year-old male who presents with generalized weakness, ambulatory dysfunction, and having low grade temperatures and increased urination and UA was positive. 1. Generalized weakness, ambulatory dysfunction, most likely secondary to urinary tract infection: Started on the Rocephin in ER. Follow the cultures. Continue with the Rocephin. Gentle fluids and monitor in the medical floor. PT and OT when stable. 2. Hypomagnesemia: Magnesium 1.6. We will replace. Follow the repeat labs. 3. History of cerebrovascular accident: Status post bifrontal infarction on 05/30/2005 while on dual anti-platelet therapy and aspirin and Plavix and at that time, he was started on Coumadin, recurrent stroke in 11/2017. Last admission, he was found to have INR greater than 9. Instead of the Coumadin he was started on Eliquis because of difficulty managing his INR. 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 It was recommended to follow with interventional vascular surgery after discharge. 4. History of coronary artery disease, severe aortic stenosis: Need to followup with cardiology. Currently stable, on aspirin, Plavix, beta josé and statin. 5. History of osteomyelitis of right great toe: On chronic suppressive antibiotics with clindamycin. 6. Type 2 diabetes: Continue his home insulin Glargine. We will hold metformin and hold his NovoLog. We will place on insulin sliding scale. Follow his blood sugars. 7. Hypertension: Continue his home medication. Currently stable. 8. Ambulatory dysfunction. Currently possibly with weakness from urinary tract infection. We will do PT, OT evaluation prior to discharge. 9. Deep venous thrombosis prophylaxis: The patient on Eliquis . DISPOSITION: Closely monitor in medical floor. Level 1 full code as per my discussion with the patient. PT and OT prior to discharge. Social Service to help with discharge planning. FREIDA
[2019-12-29] MEDS: SODIUM CHLORIDE 0.9% 1000ML 1,000 ML IV SCH ×2 (00:27→13:18)
[2019-12-29] MEDS: INSULIN GLARGINE SOLOSTAR 100 UNITS/ML 3 ML PEN SC SCH ×3 (00:27→20:46)
[2019-12-29 05:57] LABS: Basophils # (auto) 0.01 K/uL (0-0.2); Basophils % (auto) 0.2 %; Eosinophils # (auto) 0.17 K/uL (0-0.5); Eosinophils % (auto) 3.4 %; Hematocrit (blood only) 36.4 % (42-52); Hemoglobin 11.7 g/dL (14.0-18.0); Immature Granulocytes # (auto) 0.01 K/uL (0.00-0.02); Immature Granulocytes % (auto) 0.2 %; Lymphocytes # (auto) 1.52 K/uL (1.2-3.4); Lymphocytes % (auto) 30.3 %; Mean Corpuscular Hemoglobin 26.9 pg (25-34); Mean Corpuscular Hgb Conc 32.1 g/dL (32-36); Mean Corpuscular Volume 83.7 fL (80-100); Mean Platelet Volume 10.4 fL (7.4-10.4); Monocytes # (auto) 0.44 K/uL (0.11-0.59); Monocytes % (auto) 8.8 %; Neutrophils # (auto) 2.87 K/uL (1.4-6.5); Neutrophils % (auto) 57.1 %; Platelet Count 206 K/uL (130-400); RDW Coefficient of Variation 15.2 % (11.5-14.5); RDW Standard Deviation 46.7 fL (36.4-46.3); Red Blood Count 4.35 M/uL (4.7-6.1); White Blood Count 5.02 K/uL (4.8-10.8)
[2019-12-29 06:28] LABS: BUN Creatinine Ratio 25.8 (10-20); Calcium 8.3 mg/dl (8.5-10.1); Creatinine Clr Calc Pharmacy 127.7 ml/min; Est GFR (African American) 117.4; Est GFR (Non-African American) 101.3; Magnesium 1.6 mg/dl (1.8-2.4); Potassium 3.6 mmol/L (3.5-5.1)
--- NOTE | 2019-12-29 08:27 | Hospitalist Progress Note ---
Date of Service December 29, 2019 Assessment & Plan (1) Weakness: (2) Acute dehydration: (3) Urinary tract infection: (4) Type 2 diabetes mellitus: (5) HTN (hypertension): ASSESSMENT AND PLAN: This is a 59-year-old male who presents with generalized weakness, ambulatory dysfunction, and having low grade temperatures and increased urination and UA was positive. 1. Generalized weakness, ambulatory dysfunction secondary to urinary tract infection: Started on the Rocephin in ER. Follow the cultures. Continue with the Rocephin. Gentle fluids. PT and OT. 2. Hypomagnesemia: PO Mag 3. History of cerebrovascular accident: Status post bifrontal infarction on 05/30/2005 while on dual anti-platelet therapy and aspirin and Plavix and at that time, he was started on Coumadin, recurrent stroke in 11/2017. Last admission, he was found to have INR greater than 9. Instead of the Coumadin he was started on Eliquis because of difficulty managing his INR. 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 It was recommended to follow with interventional vascular surgery after discharge. 4. History of coronary artery disease, severe aortic stenosis: Need to followup with cardiology. Currently stable, on aspirin, Plavix, beta josé and statin. 5. History of osteomyelitis of right great toe: On chronic suppressive antibiotics with clindamycin. 6. Type 2 diabetes: Continue his home insulin Glargine. We will hold metformin and hold his NovoLog. We will place on insulin sliding scale. Follow his blood sugars. 7. Hypertension: Continue his home medication. Currently stable. 8. Ambulatory dysfunction. Currently possibly with weakness from urinary tract infection. We will do PT, OT evaluation 9. Deep venous thrombosis prophylaxis: The patient on Eliquis . DISPOSITION: Medical floor. Level 1 full code Labs Checked ROS-No Headache, No Visual Changes, No Nausea, No Vomiting, No Fever, No Chills, No Neck Pain or Stiffness, No Chest Pain, No Palpitations, No SOB, No BUSTILLOS, No Cough, No Sputum, No Wheezing, No Abdominal Pain, No Diarrhea, No Hematemesis, No Hemoptysis, No Unexpected Weight Loss, No Flank pain, No Melena, No Hematochezia, No Frequency, No Urgency, No Burning, No Hematuria, No Rashes, No Diaphoresis. Appetite is Normal, Weak Physical Exam Gen-AAO x 3, NAD, Afebrile, weak Head-NCAT, EOMI, PERRLA, Anicteric Sclera, No Posterior Pharyngeal Erythema Neck-Supple, No JVD, No Thyromegaly, No Masses, No LAD, No Bruits Lungs-Clear to Auscultation Bilaterally, No Rales, No Rhonchi, No Wheezing, No Crepitus Chest-No S4, +S1, +S2, No S3, No Murmurs, No Rubs, No Gallops, No Ectopy Abdomen-Soft, Bowel Sounds Present, Non Tender, Non Distended, No Hepatomegaly, No Splenomegaly, No Palpable Masses, No Rebound, No Rigidity, No Guarding Musculoskeletal-Full Range of Motion Bilaterally, No CVAT Extremities-No Cyanosis, No Clubbing, No Edema Nuero-Cranial Nerves II-XII grossly intact, Motor WNL, DTRs WNL, Strength WNL, Non Focal Psych-Normal Mood Admission and Anticipated Discharge Date Admission Date: December 28, 2019 Results & Data Results & Data ([facility]) Vital Signs (Past 12 Hours) Vital Signs Temp Pulse Pulse Resp BP BP BP 12/28/19 23:25 37 C 78 18 168/85 H 12/28/19 23:10 72 16 130/78 12/28/19 21:50 71 16 135/80 Pulse Ox 12/28/19 23:25 97 12/28/19 23:10 97 12/28/19 21:50 97 (1) Urinary tract infection Hematuria presence: without hematuria Urinary tract infection type: site unspecified Qualified Code(s): N39.0 - Urinary tract infection, site not specified
[2019-12-29] MEDS: INSULIN ASPART 100 UNITS/ML 3 ML PEN SC SCH ×4 (09:47→20:47)
[2019-12-29] MEDS: CLINDAMYCIN HCL 150 MG CAP PO SCH ×3 (09:49→20:46)
[2019-12-29] MEDS: carvediloL 12.5 MG TAB PO SCH ×2 (09:50→20:48)
[2019-12-29] MEDS: ASPIRIN 81 MG ECTAB PO SCH (09:50)
[2019-12-29] MEDS: APIXABAN 5 MG TABLET PO SCH ×2 (09:50→20:46)
[2019-12-29] MEDS: SACCHAROMYCES BOULARDII 250 MG CAP PO SCH (09:51)
[2019-12-29] MEDS: BACLOFEN 10 MG TAB PO SCH (09:52)
[2019-12-29] MEDS: lisinopriL 10 MG TAB PO SCH (09:52)
[2019-12-29] MEDS: CLOPIDOGREL BISULFATE 75 MG TAB PO SCH (09:52)
[2019-12-29] MEDS: AMLODIPINE BESYLATE 5 MG TAB PO SCH (09:52)
[2019-12-29] MEDS ORDERED: cefTRIAXone SODIUM 2,000 MG in DEXTROSE 5% 50 ML IV SCH (18:00)
[2019-12-29] MEDS: ATORVASTATIN 40 MG TAB PO SCH (20:48)
[2019-12-30 06:20] LABS: Hematocrit (blood only) 36.5 % (42-52); Hemoglobin 11.9 g/dL (14.0-18.0); Mean Corpuscular Hemoglobin 26.4 pg (25-34); Mean Corpuscular Hgb Conc 32.6 g/dL (32-36); Mean Corpuscular Volume 81.1 fL (80-100); Mean Platelet Volume 10.6 fL (7.4-10.4); Platelet Count 211 K/uL (130-400); RDW Coefficient of Variation 14.9 % (11.5-14.5); RDW Standard Deviation 43.8 fL (36.4-46.3); White Blood Count 4.75 K/uL (4.8-10.8)
[2019-12-30 06:52] LABS: BUN Creatinine Ratio 22.1 (10-20); Calcium 8.3 mg/dl (8.5-10.1); Creatinine Clr Calc Pharmacy 156.3 ml/min; Est GFR (African American) 126.6; Est GFR (Non-African American) 109.3; Potassium 3.6 mmol/L (3.5-5.1)
[2019-12-30] MEDS: BACLOFEN 10 MG TAB PO SCH (09:26)
[2019-12-30] MEDS: CLOPIDOGREL BISULFATE 75 MG TAB PO SCH (09:27)
[2019-12-30] MEDS: lisinopriL 10 MG TAB PO SCH (09:27)
[2019-12-30] MEDS: AMLODIPINE BESYLATE 5 MG TAB PO SCH (09:27)
[2019-12-30] MEDS: ASPIRIN 81 MG ECTAB PO SCH (09:27)
[2019-12-30] MEDS: carvediloL 12.5 MG TAB PO SCH ×2 (09:28→21:29)
[2019-12-30] MEDS: CLINDAMYCIN HCL 150 MG CAP PO SCH ×3 (09:28→21:29)
[2019-12-30] MEDS: APIXABAN 5 MG TABLET PO SCH ×2 (09:28→21:30)
[2019-12-30] MEDS: SACCHAROMYCES BOULARDII 250 MG CAP PO SCH (09:29)
[2019-12-30] MEDS: INSULIN ASPART 100 UNITS/ML 3 ML PEN SC SCH ×4 (09:30→21:32)
[2019-12-30] MEDS: INSULIN GLARGINE SOLOSTAR 100 UNITS/ML 3 ML PEN SC SCH ×2 (09:30→21:31)
[2019-12-30] MEDS ORDERED: POTASSIUM CHLORIDE 20 MEQ TABCR PO STA (12:48)
[2019-12-30] MEDS ORDERED: INSULIN HUMAN REGULAR PER UNIT 5 UNITS in SYRINGE 0 ML IV ONE (13:15)
[2019-12-30] MEDS ORDERED: PHARMACY GLYCEMIC MGMT CONSULT PRN (14:00)
--- NOTE | 2019-12-30 14:53 | Pharmacy Report ---
Glycemic Control Consultation - Date of Service December 30, 2019 - Scope Scope: Glycemic Pharmacist consulted for glycemic control and to write orders per [facility] inpatient glycemic control protocol. - Objective Weight: 93.7 kg Accuchecks BSG (last 24hrs): 12/29/19 12/29/19 12/30/19 17:06 20:21 05:30 Glucose 149 H POC Glucose 139 H 270 H 12/30/19 12/30/19 12/30/19 08:15 12:04 12:05 Glucose POC Glucose 146 H 374 H* 310 H* 12/30/19 12/30/19 12:06 13:59 Glucose POC Glucose 322 H* 325 H* Laboratory Data (last 24hrs): 12/30/19 05:30 Potassium 3.6 Carbon Dioxide 25 Anion Gap 7.0 Creatinine 0.59 L Est Cr Clr Drug Dosing 156.3 - Recent Pertinent Medications Outpatient Anti-diabetic Regimen: * Lantus 20 units SC BID * Novolog AC (earlier this month documented as 14 units TIDM + 14 units with snacks) w/ correction factor * Metformin 1 g PO BIDM * A1c = 7.9 % (12/06/19) The patient is currently receiving: * Basal insulin: Lantus 20 units every 12 hours * Correctional Insulin: Novolog Correction per scale ACHS Goal Range: Low 120 mg/dL - High 160 mg/dL Correction Factor: 15 mg/dL/unit * Prandial insulin: Per carb ratio of 1 unit per 6 grams CHO consumed - Assessment & Plan Assessment & Plan: ASSESSMENT: * CS is a 59 year old male admitted with generalized weakness on 12/29/19 * Patient recently admitted at the end of November of this year * Pharmacy consulted on 12/29 for afternoon BSG of 374 mg/dL * Consulting provider ordered IV insulin bolus of 5 units x 1 at this time and tightened Novolog parameters * Will further tighten carb ratio and add Lantus scale for this evening * Will leave with second-shift pharmacist to potentially given 4 more units IV bolus if BSGs still elevated (0.1 unit/kg total) * Possible UTI - ceftriaxone converted to cefdinir PLAN FOR INPATIENT GLYCEMIC CONTROL: * Holding outpatient oral diabetes medications * Basal insulin * Lantus scale units SQ BID (20-30 units - see EHR for details) * Bolus insulin - tighten CR * NovoLog per scale ACHS or Q6hrs while NPO * Goal Range: Low 120 mg/dL - High 160 mg/dL * Correction Factor: 15 mg/dL/unit * Nutritional / Prandial insulin per carb ratio of 1 unit per 5 grams CHO consumed * Please note that the plan above was derived based on current level of insulin resistance and hospital stress. These recommendations are appropriate for inpatient admission only. Plan of care upon discharge will need to be reassessed to avoid potential outpatient hypo/hyperglycemia. Thank you.
[2019-12-30] MEDS ORDERED: lisinopriL 10 MG TAB PO ONE (16:11)
[2019-12-30] MEDS: CEFDINIR 300 MG CAP PO SCH (16:42)
--- NOTE | 2019-12-30 19:51 | Hospitalist Progress Note ---
Date of Service December 30, 2019 Assessment & Plan (1) Weakness: Improved, likely secondary to antibiotic therapy. Change to PO cefdinir to complete course. Cont clinda per home regimen for chronic osteo. (2) Urinary tract infection: Improved with Rocephin. Reported clinical symptoms, however, culture was negative. Complete course of abx. (3) Type 2 diabetes mellitus: Hyperglycemia this afternoon. Encouraged carbohydrate restriction. Cont basal bolus insulin. Glycemic pharmacist was consulted to help us get back to inpatient goal. (4) HTN (hypertension): uncontrolled BP, increased lisinopril to 20mg daily. Cont Coreg 12.5 BID, cont Norvasc 5mg daily. Repeat BMP in two weeks after this adjustment. (5) H/O: CVA (cerebrovascular accident): Cont ASA, Plavix, Eliquis, Lipitor per home regimen. Has a h/o foot drop in the past. PT/OT consults placed. (6) Aortic stenosis, severe: chronic, asymptomatic. (7) Coronary artery disease: Cont medical therapy as stated above for cerebrovascular disease. (8) Osteomyelitis of great toe of right foot: cont chronic suppressive therapy with clindamycin. (9) DVT prophylaxis: Eliquis Full Code Dispo-patient and request transition to home via [facility]. They went to [facility] and had a very poor experience. Patient reports he was discharged to home without meeting his goals. Appreciate CM assistance with placement. Leda George DO [facility] Hospitalist Admission and Anticipated Discharge Date Admission Date: December 28, 2019 Subjective Pt feels back to baseline today Denies UTI symptoms. Reports weakness has improved Afebrile Tolerating PO Review of Systems Review of Systems: All systems reviewed & are unremarkable except as noted in Subjective Physical Exam Physical Exam: CONSTITUTIONAL: WNWD, vitals as above, generally well- appearing EYES: normal conjunctivae, no scleral icterus ENT: external ear and nose normal, oropharynx clear, MMM NECK: trachea midline RESPIRATORY: clear to auscultation bilaterally, no crackles, rales or wheezes, normal respiratory effort CARDIOVASCULAR: regular rate and rhythm, 33/6 ULISES, no gallops or rubs, no JVD, no peripheral edema GASTROINTESTINAL: soft, nontender, nondistended MUSCULOSKELETAL: strength 5/5 throughout, head is normocephalic and atraumatic SKIN: warm and dry NEUROLOGIC: No facial palsy, no dysarthria. CN 2-12 grossly intact, normal cognition, normal speech, no gross focal deficits. PSYCHIATRIC: alert cooperative and oriented to person, place and time. Results & Data Results & Data ([facility]) Vital Signs (Past 12 Hours) Vital Signs Temp Pulse Resp BP Pulse Ox 12/30/19 19:09 121/72 12/30/19 16:02 36.7 C 64 17 164/74 H 98 12/30/19 08:03 36.7 C 85 18 171/88 H 98 Laboratory Results Short CBC 12/30/19 Range/Units 05:30 WBC 4.75 L (4.8-10.8) K/uL Hgb 11.9 L (14.0-18.0) g/dL Hct 36.5 L (42-52) % Plt Count 211 (130-400) K/uL BMP 12/30/19 05:30 Sodium 142 Potassium 3.6 Chloride 110 H Carbon Dioxide 25 BUN 13 Creatinine 0.59 L Glucose 149 H Calcium 8.3 L Medications Administered Current Inpatient Medications Acetaminophen (Tylenol) 650 mg PO Q4H PRN PRN Reason: pain/fever Stop: 01/27/20 23:40 Amlodipine Besylate (Norvasc) 5 mg PO QAM [facility] Stop: 01/28/20 08:59 Last Admin: 12/30/19 09:27 Dose: 5 mg Documented by: Apixaban (Eliquis) 5 mg PO BID [facility] Stop: 01/28/20 08:59 Last Admin: 12/30/19 09:28 Dose: 5 mg Documented by: Aspirin (Ecotrin Ectab) 81 mg PO QAM [facility] Stop: 01/28/20 08:59 Last Admin: 12/30/19 09:27 Dose: 81 mg Documented by: Atorvastatin Calcium (Lipitor) 80 mg PO QPM [facility] Stop: 01/28/20 20:59 Last Admin: 12/29/19 20:48 Dose: 80 mg Documented by: Baclofen (Lioresal) 5 mg PO QAM [facility] Stop: 01/28/20 08:59 Last Admin: 12/30/19 09:26 Dose: 5 mg Documented by: Carvedilol (Coreg) 12.5 mg PO BID [facility] Stop: 01/28/20 08:59 Last Admin: 07/26/20 09:28 Dose: 12.5 mg Documented by: Cefdinir (Omnicef Cap) 300 mg PO BID [facility] Stop: 01/04/20 16:59 Last Admin: 12/30/19 16:42 Dose: 300 mg Documented by: Clindamycin HCl (Cleocin) 300 mg PO TID [facility] Stop: 01/28/20 08:59 Last Admin: 12/30/19 13:27 Dose: 300 mg Documented by: Clopidogrel Bisulfate (Plavix) 75 mg PO QAM [facility] Stop: 01/28/20 08:59 Last Admin: 12/30/19 09:27 Dose: 75 mg Documented by: Insulin Aspart (Novolog Flexpen) 0 units SC ACHS [facility] Stop: 01/28/20 07:29 Last Admin: 12/30/19 17:56 Dose: 10 units Documented by: Insulin Glargine (Lantus Solostar Pen) 0 units SC BID [facility]; Protocol Stop: 01/28/20 00:00 [facility]op[facility]) [facility] [place] Stop: 01/30/20 08:59 Miscellaneous Information (Consult Glycemic Management Pharmacy) 1 ea N/A UD PRN PRN Reason: Consult Stop: 01/29/20 13:59 Nitroglycerin (Nitrostat) 0.4 mg SL UD PRN PRN Reason: Chest Pain Stop: 01/27/20 23:40 Saccharomyces Boulardii (Florastor) 250 mg PO DAILY [facility] Stop: 01/28/20 08:59 Last Admin: 12/30/19 09:29 Dose: 250 mg Documented by: (1) Urinary tract infection Hematuria presence: without hematuria Urinary tract infection type: site unspecified Qualified Code(s): N39.0 - Urinary tract infection, site not specified
[2019-12-30] MEDS: ATORVASTATIN 40 MG TAB PO SCH (21:30)
[2019-12-31] MEDS ORDERED: GLUCOSE 10 TABS/TUBE PO PRN (07:30)
[2019-12-31] MEDS ORDERED: CARBOHYDRATES FOR HYPOGLYCEMIA PO PRN (07:30)
[2019-12-31] MEDS ORDERED: GLUCAGON FOR INJ 1 MG VIAL IM PRN (07:30)
[2019-12-31] MEDS ORDERED: GLUCOSE 40% GEL 15 GM TUBE PO PRN (07:30)
[2019-12-31] MEDS ORDERED: DEXTROSE 50% 50 ML SYRINGE IV PRN (07:30)
--- NOTE | 2019-12-31 08:30 | Pharmacy Report ---
Pharmacy Glycemic Short Note 2 - Date of Service December 31, 2019 - Glycemic Short BSG Results (Last 24 hours): OUTPATIENT ANTIDIABETIC REGIMEN: * Lantus 20 units SC BID * Novolog AC (earlier this month documented as 14 units TIDM + 14 units with snacks) w/ correction factor * Metformin 1000 mg PO BIDM * A1c = 7.9% (12/06/2019) ASSESSMENT: * CS is a 59 yo M admitted with generalized weakness on 12/29/2019 * Patient is on PO Clindamycin for osteomyelitis suppression and PO Cefdinir for possible UTI * Pharmacy consulted on 12/29 for afternoon BSG of 374 mg/dL * Patient received 5 unit IV insulin bolus and BSG decreased to 210 mg/dL * BSGs yesterday ranged 146-374 mg/dL * Received 88 units of insulin total: 45 units basal + 43 units bolus * Fasting BSG this AM was 108 mg/dL - will decrease basal insulin scale today * Lunch BSG was 189 mg/dL - will tighten carb ratio PLAN FOR INPATIENT GLYCEMIC CONTROL: * Hold outpatient oral diabetes medications * Basal insulin - decreased * Lantus 15 - 25 units SQ BID (see eMAR for further details) * Bolus insulin - tightened * NovoLog per scale ACHS or Q6hrs while NPO * Goal Range: Low 120 mg/dL - High 160 mg/dL * Correction Factor: 15 mg/dL/unit * Nutritional / Prandial insulin per carb ratio of 1 unit per 4 grams CHO consumed PLAN FOR DISCHARGE: * A1c increased over past year: 7.5% in 2019 --> 7.9% in 2019 * Given post-prandial hyperglycemia while inpatient, recommend tightening meal- time insulin. Increase Novolog to 15 units AC. * Continue Lantus 20 units SQ BID and Metformin 1000 mg PO BIDM.
[2019-12-31] MEDS: BACLOFEN 10 MG TAB PO SCH (08:44)
[2019-12-31] MEDS: APIXABAN 5 MG TABLET PO SCH ×2 (08:44→20:19)
[2019-12-31] MEDS: carvediloL 12.5 MG TAB PO SCH ×2 (08:44→20:23)
[2019-12-31] MEDS: AMLODIPINE BESYLATE 5 MG TAB PO SCH (08:44)
[2019-12-31] MEDS: CLOPIDOGREL BISULFATE 75 MG TAB PO SCH (08:44)
[2019-12-31] MEDS: CLINDAMYCIN HCL 150 MG CAP PO SCH ×3 (08:44→20:19)
[2019-12-31] MEDS: SACCHAROMYCES BOULARDII 250 MG CAP PO SCH (08:44)
[2019-12-31] MEDS: ASPIRIN 81 MG ECTAB PO SCH (08:44)
[2019-12-31] MEDS: INSULIN ASPART 100 UNITS/ML 3 ML PEN SC SCH ×4 (08:45→21:08)
[2019-12-31] MEDS: CEFDINIR 300 MG CAP PO SCH ×2 (08:45→20:20)
[2019-12-31] MEDS: INSULIN GLARGINE SOLOSTAR 100 UNITS/ML 3 ML PEN SC SCH ×2 (08:46→21:08)
[2019-12-31] MEDS: lisinopriL 20 MG TAB PO SCH (08:54)
--- NOTE | 2019-12-31 14:24 | Hospitalist Progress Note ---
Date of Service December 31, 2019 Assessment & Plan (1) Weakness: Improved, likely secondary to antibiotic therapy. Change to PO cefdinir to complete course. Cont clinda per home regimen for chronic osteo. PT/OT and referral for authorization to [facility] in place. (2) Urinary tract infection: Improved with Rocephin. Reported clinical symptoms, however, culture was negative. Complete course of abx. (3) Type 2 diabetes mellitus: Hyperglycemia this afternoon. Encouraged carbohydrate restriction. Cont basal bolus insulin. Glycemic pharmacist was consulted to help us get back to inpatient goal. (4) HTN (hypertension): uncontrolled BP, increased lisinopril to 20mg daily. Cont Coreg 12.5 BID, cont Norvasc 5mg daily. Repeat BMP in two weeks after this adjustment. (5) H/O: CVA (cerebrovascular accident): Cont ASA, Plavix, Eliquis, Lipitor per home regimen. Has a h/o foot drop in the past. PT/OT consults placed. (6) Aortic stenosis, severe: chronic, asymptomatic. (7) Coronary artery disease: Cont medical therapy as stated above for cerebrovascular disease. (8) Osteomyelitis of great toe of right foot: cont chronic suppressive therapy with clindamycin. (9) DVT prophylaxis: Eliquis Full Code Dispo-patient and request transition to home via [facility]. They went to [facility] and had a very poor experience. Patient reports he was discharged to home without meeting his goals. Appreciate CM assistance with placement. Leda George DO [facility] Hospitalist Admission and Anticipated Discharge Date Admission Date: December 28, 2019 Subjective feels well today denies any issues sitll having excessive urination denies dysuria denies h/o prostate issues. tolerating PO at bedside and discussed their wishes for [facility] we spent about 15 minutes reviewing their wish for inpatient rehab and not for SNF; they expressed significant dislike for the local SNFs multiple times we spoke about the option of home with home health for PT/OT and I explained that both therapists recommend it is safer to go to a facility That if they went home, there is a chance he could get stuck and they would need to come back to the hospital, or that he might fall. Because of the risks this would have to be their decision alone. So they will consider this overnight. Review of Systems Review of Systems: All systems reviewed & are unremarkable except as noted in Subjective Physical Exam Physical Exam: CONSTITUTIONAL: WNWD, vitals as above, generally well- appearing EYES: normal conjunctivae, no scleral icterus ENT: external ear and nose normal, oropharynx clear, MMM NECK: trachea midline RESPIRATORY: clear to auscultation bilaterally, no crackles, rales or wheezes, normal respiratory effort CARDIOVASCULAR: regular rate and rhythm, 3/6 ULISES, no gallops or rubs, no JVD, no peripheral edema GASTROINTESTINAL: soft, nontender, nondistended MUSCULOSKELETAL: generalized weakness, head is normocephalic and atraumatic SKIN: warm and dry NEUROLOGIC: No facial palsy, no dysarthria. CN 2-12 grossly intact, normal cog nition, normal speech, no gross focal deficits. PSYCHIATRIC: alert cooperative and oriented to person, place and time. Results & Data Results & Data ([facility]) Vital Signs (Past 12 Hours) Vital Signs Temp Pulse Resp BP Pulse Ox 12/31/19 07:10 36.6 C 62 18 165/78 H 99 Medications Administered Current Inpatient Medications Acetaminophen (Tylenol) 650 mg PO Q4H PRN PRN Reason: pain/fever Stop: 01/27/20 23:40 Amlodipine Besylate (Norvasc) 5 mg PO QAM [facility] Stop: 01/28/20 08:59 Last Admin: 12/31/19 08:44 Dose: 5 mg Documented by: Apixaban (Eliquis) 5 mg PO BID [facility] Stop: 01/28/20 08:59 Last Admin: 12/31/19 08:44 Dose: 5 mg Documented by: Aspirin (Ecotrin Ectab) 81 mg PO QAM [facility] Stop: 01/28/20 08:59 Last Admin: 12/31/19 08:44 Dose: 81 mg Documented by: Atorvastatin Calcium (Lipitor) 80 mg PO QPM [facility] Stop: 01/28/20 20:59 Last Admin: 12/30/19 21:30 Dose: 80 mg Documented by: Baclofen (Lioresal) 5 mg PO QAM [facility] Stop: 01/28/20 08:59 Last Admin: 12/31/19 08:44 Dose: 5 mg Documented by: Carvedilol (Coreg) 12.5 mg PO BID [facility] Stop: 01/28/20 08:59 Last Admin: 12/31/19 08:44 Dose: 12.5 mg Documented by: Cefdinir (Omnicef Cap) 300 mg PO BID [facility] Stop: 01/04/20 16:59 Last Admin: 12/31/19 08:45 Dose: 300 mg Documented by: Clindamycin HCl (Cleocin) 300 mg PO TID [facility] Stop: 01/28/20 08:59 Last Admin: 12/31/19 13:48 Dose: 300 mg Documented by: Clopidogrel Bisulfate (Plavix) 75 mg PO QAM [facility] Stop: 01/28/20 08:59 Last Admin: 12/31/19 08:44 Dose: 75 mg Documented by: Dextrose (Dextrose 50%) 25 - 50 ml IV UD PRN; Protocol PRN Reason: Hypoglycemia Protocol Stop: 01/30/20 07:29 Glucagon (Glucagen) 1 mg IM UD PRN; Protocol PRN Reason: Hypoglycemia Protocol Stop: 01/30/20 07:29 Glucose (Glucose 40%) 15 - 30 gm PO UD PRN; Protocol PRN Reason: Hypoglycemia Protocol Stop: 01/30/20 07:29 Glucose (Dex4 Glucose) 4 - 8 tabs PO UD PRN; Protocol PRN Reason: Hypoglycemia Protocol Stop: 01/30/20 07:29 Insulin Aspart (Novolog Flexpen) 0 units SC ACHS [facility]; Protocol Stop: 01/28/20 07:29 Last Admin: 12/31/19 12:42 Dose: 15 units Documented by: Insulin Glargine (Lantus Solostar Pen) 0 units SC BID [facility]; Protocol Stop: 01/28/20 00:00 Last Admin: 12/31/19 08:46 Dose: 20 units Documented by: Lisinopril (Zestril) 20 mg PO QAM [facility] Stop: 01/30/20 08:59 Last Admin: 12/31/19 08:54 Dose: 20 mg Documented by: Miscellaneous (Carbohydrates For Hypoglycemia) 15 - 30 gm PO UD PRN PRN Reason: Hypoglycemia Treatment Stop: 01/30/20 07:29 Miscellaneous Information (Consult Glycemic Management Pharmacy) 1 ea N/A UD PRN PRN Reason: Consult Stop: 01/29/20 13:59 Nitroglycerin (Nitrostat) 0.4 mg SL UD PRN PRN Reason: Chest Pain Stop: 01/27/20 23:40 Saccharomyces Boulardii (Florastor) 250 mg PO DAILY [facility] Stop: 01/28/20 08:59 Last Admin: 12/31/19 08:44 Dose: 250 mg Documented by: (1) Urinary tract infection Hematuria presence: without hematuria Urinary tract infection type: site unspecified Qualified Code(s): N39.0 - Urinary tract infection, site not specified
[2019-12-31] MEDS: ATORVASTATIN 40 MG TAB PO SCH (20:19)
--- NOTE | 2020-01-01 09:34 | Pharmacy Report ---
Pharmacy Glycemic Short Note 2 - Date of Service January 01, 2020 - Glycemic Short BSG Results (Last 24 hours): OUTPATIENT ANTIDIABETIC REGIMEN: * Lantus 20 units SC BID * Novolog AC (earlier this month documented as 14 units TIDM + 14 units with snacks) w/ correction factor * Metformin 1000 mg PO BIDM * A1c = 7.9% (12/06/2019) ASSESSMENT: 12/31: * CS is a 59 yo M admitted with generalized weakness on 12/29/2019 * Patient is on PO Clindamycin for osteomyelitis suppression and PO Cefdinir for possible UTI * BSGs yesterday ranged 108-191 mg/dL * Patient received a total of 86 units of insulin: 40 units basal + 46 units bolus * Basal insulin scale was decreased yesterday given consistent decrease in Fasting BSGs * Carb Ratio was tightened yesterday secondary to consistent post-prandial hyperglycemia * Fasting BSG this AM was 146 mg/dL - basal insulin scale increased * Lunchtime BSG today was 225 mg/dL - novolog parameters tightened PLAN FOR INPATIENT GLYCEMIC CONTROL: * Hold outpatient oral diabetes medications * Basal insulin - increased * Lantus 20 - 30 units SQ BID (see eMAR for further details) * Bolus insulin - tightened * NovoLog per scale ACHS or Q6hrs while NPO * Goal Range: Low 120 mg/dL - High 160 mg/dL * Correction Factor: 12 mg/dL/unit * Nutritional / Prandial insulin per carb ratio of 1 unit per 4 grams CHO consumed PLAN FOR DISCHARGE: * A1c increased over past year: 7.5% in 2019 --> 7.9% in 2019 * Given post-prandial hyperglycemia while inpatient, recommend tightening meal- time insulin. Increase Novolog to 15 units AC. * Increase Lantus to 22 units SC BID. * Continue Metformin 1000 mg PO BIDM.
[2020-01-01] MEDS: CEFDINIR 300 MG CAP PO SCH (09:41)
[2020-01-01] MEDS: CLOPIDOGREL BISULFATE 75 MG TAB PO SCH (09:41)
[2020-01-01] MEDS: AMLODIPINE BESYLATE 5 MG TAB PO SCH (09:42)
[2020-01-01] MEDS: lisinopriL 20 MG TAB PO SCH (09:42)
[2020-01-01] MEDS: SACCHAROMYCES BOULARDII 250 MG CAP PO SCH (09:42)
[2020-01-01] MEDS: BACLOFEN 10 MG TAB PO SCH (09:42)
[2020-01-01] MEDS: CLINDAMYCIN HCL 150 MG CAP PO SCH ×2 (09:43→13:17)
[2020-01-01] MEDS: ASPIRIN 81 MG ECTAB PO SCH (09:43)
[2020-01-01] MEDS: carvediloL 12.5 MG TAB PO SCH (09:44)
[2020-01-01] MEDS: APIXABAN 5 MG TABLET PO SCH (09:44)
[2020-01-01] MEDS: INSULIN GLARGINE SOLOSTAR 100 UNITS/ML 3 ML PEN SC SCH (09:47)
[2020-01-01] MEDS: INSULIN ASPART 100 UNITS/ML 3 ML PEN SC SCH ×2 (09:49→13:19)
--- NOTE | 2020-01-01 16:12 | Discharge Summary ---
Date of Service January 01, 2020 Admission HPI Per Admitting Provider HISTORY OF PRESENT ILLNESS: This 59-year-old male with past medical history significant for CAD status post CABG, insulin-dependent diabetes type 2, severe aortic stenosis, history of recurrent CVA while on dual anti-platelets so was started on Coumadin. But last admission changed to Eliquis, history of right foot drop, bilateral carotid stenosis, hypertension, hyperlipidemia, SMA stenosis, who lives with his . He was recently in the hospital and discharged on 12/08/2019. He went to [facility], when he came back home, he was tested for COVID on December 04 and was negative. The patient is currently resting comfortably and hemodynamically stable, but at home as per the patient and patient's , the patient is having some low-grade temperature for last few days and highest was 100.8 degrees a couple of days ago, he was taking Tylenol .Today was feeling generalized weak, they could not get him up from the bed, and the home health nurse called the PCP and advised to bring him to the hospital. The patient is also last few days having decreasing amount of urine, he was going to bathroom frequently but in small amounts, but no burning micturition. No shortness of breath, no cough, no nausea, no vomiting. Normal bowel movements, no blood in stools or black stools. No chest pain, no loss of sense of smell or taste. No sore throat, no runny nose. No headache, no ear aches. In the ER, they try to give him fluids, antibiotics, and ambulate, but he was having difficulty ambulation, so we were called for admission. UA was positive. Electrolytes are okay except for magnesium of 1.6. No white count. Urine slightly positive. CT head was no acute findings. Chest x-ray, no acute findings. Admission Exam Per Admitting Provider PHYSICAL EXAMINATION: GENERAL: The patient is of moderate build, not in acute distress. VITAL SIGNS: Temperature 36.5, pulse 71, respiratory rate 16, blood pressure 135/80, oxygen 97% on room air. HEENT: No pallor, no icterus. Pupils equal, round, reactive to light. Extraocular muscles intact. NECK: No JVD, no neck masses. CARDIOVASCULAR: S1, S2 heard, regular rate and rhythm, no murmur, no gallop. RESPIRATORY SYSTEM: Normal AP diameter. No accessory muscle use. No wheezing, no crackles. ABDOMEN: Soft, bowel sounds present, nontender. No distention. CENTRAL NERVOUS SYSTEM: Alert and oriented. Some mild right sided weakness. [id number] test normal. Speech is clear. Can lift his extremities. Sensation is intact. EXTREMITIES: No edema, no erythema. Principal Diagnosis Weakness Ambulatory Dysfunction BPH UTI Discharge Exam CONSTITUTIONAL: WNWD, vitals as above, generally well-appearing EYES: normal conjunctivae, no scleral icterus ENT: external ear and nose normal, oropharynx clear, MMM NECK: trachea midline RESPIRATORY: clear to auscultation bilaterally, no crackles, rales or wheezes, normal respiratory effort CARDIOVASCULAR: regular rate and rhythm, 3/6 ULISES, no gallops or rubs, no JVD, no peripheral edema GASTROINTESTINAL: soft, nontender, nondistended MUSCULOSKELETAL: generalized weakness SKIN: warm and dry NEUROLOGIC: No facial palsy, no dysarthria. CN 2-12 grossly intact, normal cognition, normal speech, no gross focal deficits. PSYCHIATRIC: alert cooperative and oriented to person, place and time. Discharge Data Allergies Allergy/AdvReac Type Severity Reaction Status Date / Time No Known Allergies Allergy Verified 12/28/19 21:29 Consultations 12/28/19 20:07 ED Decision to Admit Stat 12/28/19 23:41 Consult Case Management - Discharge Planning Routine Ordered Studies 12/28/19 15:57 CT head/brain wo con Stat Hospital Course (1) Weakness: Improved, likely secondary to antibiotic therapy, however, he continued to have issues with frequent urination and ?incomplete voiding. He had an IPSS score of 8. Therefore, in addition to a course of antibiotics, he was also placed on Flomax at discharge with close PCP followup recommended to titrate therapy to effect. He was transferred to [facility] for a course of inpatient rehab as a transition to home. (2) Urinary tract infection: Improved with Rocephin. Reported clinical symptoms, however, culture was negative. Complete course of abx. (3) HTN (hypertension): uncontrolled BP, increased lisinopril to 20mg daily. Cont Coreg 12.5 BID, cont Norvasc 5mg daily. Repeat BMP in two weeks after this adjustment. (4) H/O: CVA (cerebrovascular accident): Cont ASA, Plavix, Eliquis, Lipitor per home regimen. Has a h/o foot drop in the past. Transfer to inpatient rehab. (5) Aortic stenosis, severe: chronic, asymptomatic. (6) Osteomyelitis of great toe of right foot: cont chronic suppressive therapy with clindamycin. At time of discharge weakness had improved from admission. He was mentating at baseline and tolerating PO. He was hemodynamically stable and afebrile and oxygenating well on room air. He was discharged in stable condition with close PCP followup to review BPH and add finasteride when appropriate. Additionally a repeat BMP is recommended after increase of lisinopril dosage. Total Time Total Time Spent Total Time Spent (In Minutes): 60 Total Time Includes: Examination of the Patient, Discharge Planning, Medication Reconciliation and Communication With Other Providers Discharge Plan Discharge Items Patient Disposition: Transfer Inpatient Rehab Fac Reason For Visit: GENERALIZED WEAKNESS, AMNULATORY DYSFUNCTION Discharge Diagnosis: Weakness Ambulatory Dysfunction BPH UTI Condition on Discharge: Good Activity: Per Instructions section Activity Comment: per staff at rehab facility, no formal restrictions. Non-emergency contact: Primary Care Provider Call non-emergency contact if: you have any medication questions, your symptoms worsen and you have a fever Follow-up/Referrals: Dereck Zaman, [Primary Care Provider] - Diet: Carb Consistent or DM2 and Heart Healthy Addtl Attending Provider Instructions: Please take all medications as instructed on discharge list below. You will need to take two more days of the CEFDINIR to complete the course for your UTI. Your blood pressure medication LISINOPRIL was increased to 20mg daily. Repeat non-fasting bloodwork (BASIC METABOLIC PANEL) in two weeks time. This may be ordered by your primary care physician (PCP) or the staff at [facility] if you are still there. It is recommended that you follow-up with your PCP within 1-2 weeks of hospital discharge for recheck of your blood pressure, to ensure you are handling all the new medications correctly, and to further discuss any urination issues. It was a pleasure taking care of you! Please call if you have any questions or problems. You can reach a [facility] hospitalist on duty at [facility] 24 hours a day by calling [phone]. Take care of yourself. Leda George, [facility] Center[facility] Pending Studies at Discharge: No Stand-Alone Forms: My [facility] Skilled Items Patient informed of condition?: Yes DNR: No Discharge Level of Care: Acute rehab Communicable Disease: No Discharge Prognosis: Stable Lines: None Urinary Catheter: No Medications and DC Order Prescriptions: New cefdinir 300 mg Capsule 300 mg PO BID Qty: 4 RF: 0 tamsulosin [Flomax] 0.4 mg capsule 0.4 mg PO HS Qty: 30 RF: 1 lisinopril 20 mg Tablet 20 mg PO QAM Qty: 30 RF: 1 Continued carvedilol 12.5 mg tablet 12.5 mg PO BID RF: 0 insulin glargine [Lantus U-100 Insulin] 100 unit/mL solution 20 units SQ AMPM RF: 0 clopidogrel [Plavix] 75 mg tablet 75 mg PO QAM RF: 0 atorvastatin [Lipitor] 80 mg tablet 80 mg PO QPM RF: 0 metformin 1,000 mg tablet 1,000 mg PO BID RF: 0 baclofen 5 mg tablet 5 mg PO QAM RF: 0 insulin aspart U-100 [Novolog U-100 Insulin aspart] 100 unit/mL Solution 10 unit SUBCUT AC RF: 0 nitroglycerin 0.4 mg tablet, sublingual 0.4 mg sublingual DIRECTED PRN (Reason: Chest Pain) RF: 0 Discontinued lisinopril 10 mg Tablet 10 mg PO QAM 30 Days Qty: 30 RF: 0 Discharge Orders: Discharge Order (Routine); Ordered 01/01/20 Ordered By: Leda Garrett/Other Patient Handouts: Urinary Tract Infections in Men Admission Data Admit Date/Time: 12/28/19 22:18 Attending Provider: Leda George Admit Provider: Sebastian Torres Primary Care Provider: Dereck Zaman Other Providers: Sebastian Torres ; [facility] Other Interventions: Discharge Summary Assessment (RN) Last Done: 01/01/20 15:51 DC Date/Time DO NOT enter until pt leaves facility: 01/01/20 17:12
== END 2020-01-01 17:12 | DRG 690 ==
LOC: ED 15:36 → SUATTDRO 22:18 → 3W 22:18

== ENCOUNTER 2020-01-22 16:07 | Inpatient (IN) ==
--- NOTE | 2020-01-22 16:40 | Emergency Department Note ---
Impression & Plan Acute cerebrovascular accident, Right arm weakness, Hypomagnesemia ED Provider Note NAME: TREVIN POPE AGE: 59 SEX: M : 1960 ARRIVES VIA: Walk-In INFORMANT: [Patient][, soledad solomon] ED PROVIDER(S): [Donny Steele MD] CHIEF COMPLAINT: Stroke HISTORY OF PRESENT ILLNESS: The patient is a 59-year-old male who has been home from rehab for about 4 days. Yesterday, his thought he had a harder time standing and she noticed that he was holding his right arm with his left arm. The patient saw his doctor's office today and an MRI was done as an outpatient. The MRI showed a new subacute stroke. The patient has had previous strokes. He is on aspirin, P lavix and Eliquis. The patient was in our hospital at the end of last month for weakness. The weak ness was thought secondary to dehydration. The patient did not have his current symptoms during his hospitalization. His doctors office referred him to the ED because of the new stroke findings. There has been no fever, chills, cough or congestion. He does not have any pain. REVIEW OF SYSTEMS: See HPI for pertinent positives and negatives. A total of ten systems were reviewed and were otherwise negative. PMHx/PSHx: See Below SOCIAL HISTORY: See Below. PHYSICAL EXAM: GENERAL: Patient is in no acute distress. HEENT: No acute trauma, normocephalic atraumatic, mucous membranes moist, no nasal congestion, no scleral icterus. NECK: No stridor, no adenopathy, no meningismus, trachea is midline. LUNGS: Clear to auscultation bilaterally, no wheeze, no rhonchi, breath sounds e qual. HEART: 4/6 systolic murmur, regular rate and rhythm. ABDOMEN: Soft, nontender, bowel sounds positive, no hernias, no peritonitis. EXTREMITIES: No cyanosis or edema, full range of motion of all the joints without pain or difficulty, no signs for acute trauma. NEUROLOGIC: Oriented x 3, there is no facial droop or speech slur. He does have a right cerebellar dysfunction and some right pronator/extremity drift. Right leg seems strong, no drifting. SKIN: No rash, no jaundice, no diaphoresis. DIFFERENTIAL DIAGNOSIS: Infection, dehydration, metabolic abnormality, hypo/hyperglycemia, TIA, CVA, electrolyte disturbance, anemia, hypoxia, cardiac sources, intracerebral event, toxicologic, neurologic, as well as other pathologies. EMERGENCY DEPARTMENT COURSE/PROCEDURES: ECG: Indication was possible stroke. The ECG shows a normal sinus rhythm with a rate of 70. There is an old inferior and old anterior lateral infarct. There are inverted T waves in the lateral leads. QTC is 421. Compared to an ECG from 28 December 2019, there is no significant change. Continuous Cardiac Monitoring: An order was placed for continuous cardiac monitoring. The monitor shows a rate of 79 with normal sinus rhythm. MEDICAL DECISION MAKING: There is no leukocytosis. The patient is mildly anemic although, this is baseline looking back at previous testing. There was a normal platelet count. No worrisome coagulopathy. Magnesium was low 1.5, no kidney failure. No worrisome liver enzyme elevation. Patient appeared to be in a euthyroid state. ECG shows a sinus rhythm, no acute ischemia. Cardiac enzyme testing x1 is not consistent with acute cardiac injury. Chest film does not show pneumonia or CHF. Brain MRI from earlier today does show a subacute infarct. On my exam, the patient did have weakness in the right upper extremity and some cerebellar dysfunction in the right upper extremity. Patient was given a dose of IV magnesium. He is currently resting comfortably. The patient has suffered a stroke. He is not a TPA candidate as his symptoms have been ongoing since yesterday. He certainly is out of the TPA window. Patient requires a hospital stay for a stroke work-up. The cause for the CVA is not clear. He is already on numerous medications to prevent stroke. Certainly, the findings on MRI explain the new onset weakness and difficulty standing. I spoke to the patient, I talked with case management. The on-call hospitalist was consulted. Past Med/Surg History Medical History Aortic valve stenosis CAD (coronary artery disease) Carotid stenosis Dyslipidemia Hemiplegia affecting right dominant side HTN (hypertension) Monoplegia affecting right dominant side Obesity Proliferative diabetic retinopathy Retinal edema Right foot drop Status post cerebrovascular accident Status post myocardial infarction Superior mesenteric artery stenosis Type 2 diabetes mellitus Surgical History Hx of vitrectomy S/P angioplasty with stent S/P CABG x 3 S/P PTCA (percutaneous transluminal coronary angioplasty) Family History Father Heart disease Social History Smoking Status: Never smoker Tobacco Type: Cigarettes Second Hand Exposure: No; Hx Alcohol Use: No Hx Substance Use: No Preferred Language: Spanish Communication Ability: Effective Visual Impairment: No Limitations Hearing Ability: Normal Cigarette Stamper Required: No Beliefs That Will Affect Care: None marital status: Current Living Situation: Spouse Current Living Situation Comment: own home current occupational status: disabled Feels Safe at Home: Yes Safety Concerns: Feels Safe At This Time Allergies Allergies Allergy/AdvReac Type Severity Reaction Status Date / Time No Known Allergies Allergy Verified 01/22/20 17:33 Home Meds Home Medications Medication Instructions Recorded Confirmed atorvastatin 80 mg tablet 80 mg PO QPM 07/10/18 01/22/20 baclofen 5 mg tablet 5 mg PO QAM tab 07/10/18 01/22/20 carvedilol 12.5 mg tablet 12.5 mg PO BID 07/10/18 01/22/20 clopidogrel 75 mg tablet 75 mg PO QAM 07/10/18 01/22/20 insulin glargine 100 unit/mL 18 units SQ AMPM ml 07/10/18 01/22/20 subcutaneous solution metformin 1,000 mg tablet 1,000 mg PO BID 07/10/18 01/22/20 insulin aspart U-100 [Novolog 10 unit SUBCUT AC 09/08/18 01/22/20 U-100 Insulin aspart] nitroglycerin 0.4 mg SUBLINGUAL DIRECTED PRN 08/09/19 01/22/20 Saccharomyces boulardii [Florastor] 250 mg PO QAM 01/22/20 01/22/20 amlodipine [Norvasc] 5 mg PO QAM 01/22/20 01/22/20 apixaban [Eliquis] 5 mg PO BID 01/22/20 01/22/20 aspirin [Aspir-81] 81 mg PO QAM 01/22/20 01/22/20 clindamycin HCl [Cleocin HCl] 300 mg PO TID 01/22/20 01/22/20 ondansetron 4 mg PO Q4H PRN 01/22/20 01/22/20 Previous Rx's Medication Instructions Recorded lisinopril 20 mg PO QAM #30 tab 01/01/20 Results & Data (ED) Vital Signs Vital Signs - 24 hr 01/22/20 16:09 01/22/20 16:37 01/22/20 17:00 Temperature 36.6 C Temperature Source Oral Pulse Rate 79 79 70 Pulse Rate from SpO2 Sensor 66 Pulse Rhythm Regular Respiratory Rate 20 20 10 L Blood Pressure 155/74 H Blood Pressure Mean 101 Pulse Oximetry 97 97 100 Oxygen Delivery Method Room Air Room Air Sepsis Recent Fever Within 48 Hours No Sepsis New/Unexplained Change in Mental Status No Sepsis Action Taken by Nursing No Action Required Home Medications Current Medication List: was personally reviewed by me Laboratory Data Attestation: I reviewed the patient's lab results. Result diagrams: 01/22/20 16:30 01/22/20 17:17 Lab Results 01/22/20 01/22/20 01/22/20 Range/Units 16:30 16:30 16:30 WBC 8.22 (4.8-10.8) K/uL RBC 4.83 (4.7-6.1) M/uL Hgb 12.6 L (14.0-18.0) g/dL Hct 38.6 L (42-52) % MCV 79.9 L (80-100) fL MCH 26.1 (25-34) pg MCHC 32.6 (32-36) g/dL RDW Std Deviation 42.4 (36.4-46.3) fL RDW Coeff of Caroline 14.7 H (11.5-14.5) % Plt Count 202 (130-400) K/uL MPV 10.7 H (7.4-10.4) fL Immature Gran % (Auto) 0.1 % Neut % (Auto) 59.3 % Lymph % (Auto) 26.5 % [place] % (Auto) 9.5 % Eos % (Auto) 4.4 % Baso % (Auto) 0.2 % Neut # (Auto) 4.87 (1.4-6.5) K/uL Lymph # (Auto) 2.18 (1.2-3.4) K/uL [place] # (Auto) 0.78 H (0.11-0.59) K/uL Eos # (Auto) 0.36 (0-0.5) K/uL Baso # (Auto) 0.02 (0-0.2) K/uL Immature Gran # (Auto) 0.01 (0.00-0.02) K/uL PT Cancelled INR Cancelled APTT Cancelled PTT Ratio Cancelled Sodium 138 (136-145) mmol/L Potassium (3.5-5.1) mmol/L Chloride 106 (98-107) mmol/L Carbon Dioxide 24 (21-32) mmol/L Anion Gap 8.0 (3-11) BUN 19 H (7-18) mg/dl Creatinine 0.84 (0.6-1.4) mg/dl Est Cr Clr Drug Dosing 108.2 ml/min Est GFR ( Amer) 109.5 Est GFR (Non-Af Amer) 94.5 BUN/Creatinine Ratio 23.0 H (10-20) Glucose 138 H (70-99) mg/dl Calcium 9.0 (8.5-10.1) mg/dl Magnesium (1.8-2.4) mg/dl Total Bilirubin 0.4 (0.2-1) mg/dl AST (15-37) U/L ALT 19 (12-78) U/L Alkaline Phosphatase 64 (45-117) U/L Troponin I < 0.015 (0-0.045) ng/ml Total Protein 7.3 (6.4-8.2) gm/dl Albumin 3.2 L (3.4-5.0) gm/dl Globulin 4.1 H (2.5-4.0) gm/dl Albumin/Globulin Ratio 0.8 L (0.9-2) TSH 1.370 (0.300-4.500) uIu/ml 01/22/20 01/22/20 Range/Units 17:17 17:17 WBC (4.8-10.8) K/uL RBC (4.7-6.1) M/uL Hgb (14.0-18.0) g/dL Hct (42-52) % MCV (80-100) fL MCH (25-34) pg MCHC (32-36) g/dL RDW Std Deviation (36.4-46.3) fL RDW Coeff of Caroline (11.5-14.5) % Plt Count (130-400) K/uL MPV (7.4-10.4) fL Immature Gran % (Auto) % Neut % (Auto) % Lymph % (Auto) % [place] % (Auto) % Eos % (Auto) % Baso % (Auto) % Neut # (Auto) (1.4-6.5) K/uL Lymph # (Auto) (1.2-3.4) K/uL [place] # (Auto) (0.11-0.59) K/uL Eos # (Auto) (0-0.5) K/uL Baso # (Auto) (0-0.2) K/uL Immature Gran # (Auto) (0.00-0.02) K/uL PT 12.1 H INR 1.2 H APTT 29.8 PTT Ratio 1.1 Sodium (136-145) mmol/L Potassium 4.1 (3.5-5.1) mmol/L Chloride (98-107) mmol/L Carbon Dioxide (21-32) mmol/L Anion Gap (3-11) BUN (7-18) mg/dl Creatinine (0.6-1.4) mg/dl Est Cr Clr Drug Dosing ml/min Est GFR ( Amer) Est GFR (Non-Af Amer) BUN/Creatinine Ratio (10-20) Glucose (70-99) mg/dl Calcium (8.5-10.1) mg/dl Magnesium 1.5 L (1.8-2.4) mg/dl Total Bilirubin (0.2-1) mg/dl AST 10 L (15-37) U/L ALT (12-78) U/L Alkaline Phosphatase (45-117) U/L Troponin I (0-0.045) ng/ml Total Protein (6.4-8.2) gm/dl Albumin (3.4-5.0) gm/dl Globulin (2.5-4.0) gm/dl Albumin/Globulin Ratio (0.9-2) TSH (0.300-4.500) uIu/ml Administered Medications Apixaban (Apixaban 5 Mg Tablet) 5 mg PO BID SUMA Stop: 02/21/20 21:30 Last Admin: 01/22/20 22:20 Dose: 5 mg Documented by: [id number] Atorvastatin Calcium (Atorvastatin 40 Mg Tab) 80 mg PO QPM SUMA Stop: 02/21/20 21:30 Last Admin: 01/22/20 22:20 Dose: 80 mg Documented by: [id number] Carvedilol (Carvedilol 12.5 Mg Tab) 12.5 mg PO BID SUMA Stop: 02/21/20 21:30 Last Admin: 01/22/20 22:20 Dose: 12.5 mg Documented by: [id number] Clindamycin HCl (Clindamycin Hcl 150 Mg Cap) 300 mg PO TID SUMA Stop: 02/21/20 21:30 Last Admin: 01/22/20 22:19 Dose: 300 mg Documented by: [id number] Magnesium Sulfate/Dextrose (Magnesium Sulfate / D5w) 1 gm in 100 mls @ 50 mls/hr IV Q2H SUMA Stop: 01/23/20 00:44 Last Admin: 01/22/20 22:09 Dose: 50 mls/hr Documented by: [id number] Insulin Aspart (Insulin Aspart 100 Units/Ml 3 Ml Pen) 0 units SC ACHS SUMA Stop: 02/21/20 21:30 Last Admin: 01/22/20 22:25 Dose: Not Given Documented by: [id number] Cosigned by: [id number] Insulin Glargine (Insulin Glargine Solostar 100 Units/Ml 3 Ml Pen) 10 units SC BID SUMA Stop: 02/21/20 21:30 Last Admin: 01/22/20 22:26 Dose: 10 units Documented by: [id number] Cosigned by: [id number] Tamsulosin HCl (Tamsulosin Hcl 0.4 Mg Cap) 0.4 mg PO HS SUMA Stop: 02/21/20 21:30 Last Admin: 01/22/20 23:11 Dose: Not Given Documented by: [id number] Discontinued Medications Magnesium Sulfate/Dextrose (Magnesium Sulfate / D5w) 1 gm in 100 mls @ 100 mls/hr IV NOW STA Stop: 01/22/20 19:04 Last Infusion: 01/22/20 19:27 Dose: 0 mls/hr Documented by: [id number] Admin: 01/22/20 18:16 Dose: 100 mls/hr Documented by: [id number] Tamsulosin HCl (Tamsulosin Hcl 0.4 Mg Cap) 0.4 mg PO HS SUMA Stop: 02/21/20 20:59 Last Admin: 01/22/20 22:19 Dose: 0.4 mg Documented by: [id number] Imaging Data Radiologist's Impression: MRI OF THE BRAIN WITHOUT CONTRAST CLINICAL HISTORY: Right upper extremity weakness. Possible acute stroke. COMPARISON STUDY: Noncontrast head CT performed 12/28/2019, MRI the brain dated 12/02/2019 FINDINGS: Sagittal T1, axial diffusion, proton density and T2 weighted axial, coronal FLAIR, and axial T1-weighted images were acquired. No intra or extra-axial mass lesions are visualized There is a small focus of restricted water diffusion at the level of the right f rontoparietal parafalcine junction. There is mild ventricular dilatation likely secondary to volume loss. Proton density T2-weighted and FLAIR images reveal moderately extensive foci of increased T2 signal within the white matter, likely on a small vessel basis. There are multiple old scattered lacunar infarcts. There is increased T2 signal within the left central sarabjit, likely secondary to an old lacunar infarct. There are no abnormal flow voids. IMPRESSION: 1. Interval development of a small focus of restricted water diffusion at the level the right frontoparietal parafalcine junction, consistent with a small acute/subacute infarct 2. Moderately extensive white matter disease, and multiple old bilateral lacunar infarcts 3. No MRI evidence of acute hemorrhage. XR chest 1V portable CLINICAL HISTORY: weakness COMPARISON STUDY: 12/28/2019 FINDINGS: There are postsurgical changes of midline sternotomy. The cardiac and mediastinal contours remain stable. There is no failure. There is no focal pulmonary consolidation. There are no pleural effusions.[ IMPRESSION: No active disease in the chest. Blood Pressure Blood Pressure Findings: Elevated blood pressure Blood Pressure Disposition: further management by hospitalist Discharge Plan Visit Data Chief Complaint: Stroke/CVA Symptoms Stated Complaint: Stroke/CVA Symptoms ED Provider: Donny Steele Discharge Problem: Acute cerebrovascular accident, Right arm weakness, Hypomagnesemia Patient Disposition: Admitted As Inpatient Condition: Good Discharge Instructions Interventions: ED Discharge Assessment Last Done: 01/22/20 18:57
[2020-01-22 16:46] LABS: Basophils # (auto) 0.02 K/uL (0-0.2); Basophils % (auto) 0.2 %; Eosinophils # (auto) 0.36 K/uL (0-0.5); Eosinophils % (auto) 4.4 %; Hematocrit (blood only) 38.6 % (42-52); Hemoglobin 12.6 g/dL (14.0-18.0); Immature Granulocytes # (auto) 0.01 K/uL (0.00-0.02); Immature Granulocytes % (auto) 0.1 %; Lymphocytes # (auto) 2.18 K/uL (1.2-3.4); Lymphocytes % (auto) 26.5 %; Mean Corpuscular Hemoglobin 26.1 pg (25-34); Mean Corpuscular Hgb Conc 32.6 g/dL (32-36); Mean Corpuscular Volume 79.9 fL (80-100); Mean Platelet Volume 10.7 fL (7.4-10.4); Monocytes # (auto) 0.78 K/uL (0.11-0.59); Monocytes % (auto) 9.5 %; Neutrophils # (auto) 4.87 K/uL (1.4-6.5); Neutrophils % (auto) 59.3 %; Platelet Count 202 K/uL (130-400); RDW Coefficient of Variation 14.7 % (11.5-14.5); RDW Standard Deviation 42.4 fL (36.4-46.3); Red Blood Count 4.83 M/uL (4.7-6.1); White Blood Count 8.22 K/uL (4.8-10.8)
[2020-01-22] MEDS ORDERED: PHARMACIST DISCHARGE MED REC CONSULT PRN (16:48)
--- NOTE | 2020-01-22 17:03 | XRay Report ---
XR chest 1V portable CLINICAL HISTORY: weakness COMPARISON STUDY: 12/28/2019 FINDINGS: There are postsurgical changes of midline sternotomy. The cardiac and mediastinal contours remain stable. There is no failure. There is no focal pulmonary consolidation. There are no pleural e ffusions.[ IMPRESSION: No active disease in the chest. ACT 112: Negative or not required by law. Electronically signed by: Luis Manuel Son M.D. 01/22/2020 5:01 PM
--- NOTE | 2020-01-22 17:14 | History & Physical Report ---
Date of Service January 22, 2020 Assessment & Plan (1) Acute cerebrovascular accident: Pt has intermittent atrial fibrillation and a h/o CVA in the past. He is compliant with Eliquis therapy and is on ASA and Plavix for secondary prophylaxis of stroke. He was just discharged from [facility] rehab when he began having R arm weakness. Cont current medical therapy. PT/ OT/ and speech therapy consult. Passed bedside dysphagia screen (2) H/O: CVA (cerebrovascular accident): Cont ASA, Plavix and Elliquis. Allow permissive HTN--notify physician if BP rises above 220/120. (3) Type 2 diabetes mellitus: Hold home medications and cont treating him with basal/bolus insulin while admitted. (4) HTN (hypertension): Allow permissive HTN for two days. Hold amlodipine and prinivil. Treat if BP >220/120. Cont low salt diet (5) Hypomagnesemia: replace and repeat in am. (6) Osteomyelitis of great toe of right foot: Continue prophylactic clindamycin. (7) Aortic stenosis, severe: Known issue. Low salt diet. Continue to monitor. (8) Increased urinary frequency: IPSS score was 8 on prior hospitalization and he was started on Flomax. this was not continued or given at discharge from [facility] stay recently. Will restart this now and have him seen by Urology with persistent increased frequency of urination. UA is pending. (9) Coronary artery disease: Denies any SOB or chest pain at this time. Appears stable disease. Cont medical management including ASA, Coreg, Lipitor, Plavix. Lis on hold as above. (10) DVT prophylaxis: Eliquis Full Code Dispo-to telemetry Leda George DO [facility] Hospitalist History of Present Illness Chief Complaint: Left arm weakness, acute stroke Primary Care Provider: Dereck Zaman DO 59 yo M with extensive vascular disease, PAF and recent weakness. He was recently hospitalized last month and went to [facility] for rehab. He was discharged last Wednesday 01/17, and had concerning vomiting at that time. Pt reported having some L arm weakness intermittently around this time. Over the weekend he continued to have L arm weakness and went to his PCP with these concerns. MRI outpatient was ordered and revealed a right frontoparietal infarct c/w a small acute to subacute infarction, extensive white matter disease, and multiple old bilateral lacunar infarcts. He is no longer nauseous, RUE weakness is present. He has no numbness. He appears to still have weakness. He denies SOB, chest pain or other symptoms at this time. I noticed he was urinating frequently in the ER, and I asked about the Flomax which we started as a new med on recent discharge. IPSS was 8 at that time. Per his he didn't receive it during the two weeks at [facility] and was not given a script for this at discharge recently. He is hungry. Allergies Allergy/AdvReac Type Severity Reaction Status Date / Time No Known Allergies Allergy Verified 01/22/20 17:33 Home Medications Home Medications Medication Instructions Recorded Confirmed Type atorvastatin 80 mg tablet 80 mg PO QPM 07/10/18 01/22/20 History baclofen 5 mg tablet 5 mg PO QAM tab 07/10/18 01/22/20 History carvedilol 12.5 mg tablet 12.5 mg PO BID 07/10/18 01/22/20 History clopidogrel 75 mg tablet 75 mg PO QAM 07/10/18 01/22/20 History insulin glargine 100 unit/mL 18 units SQ AMPM ml 07/10/18 01/22/20 History subcutaneous solution metformin 1,000 mg tablet 1,000 mg PO BID 07/10/18 01/22/20 History insulin aspart U-100 [Novolog 10 unit SUBCUT AC 09/08/18 01/22/20 History U-100 Insulin aspart] nitroglycerin 0.4 mg SUBLINGUAL DIRECTED PRN 08/09/19 01/22/20 History lisinopril 20 mg PO QAM #30 tab 01/01/20 01/22/20 Rx Saccharomyces boulardii [Florastor] 250 mg PO QAM 01/22/20 01/22/20 History amlodipine [Norvasc] 5 mg PO QAM 01/22/20 01/22/20 History apixaban [Eliquis] 5 mg PO BID 01/22/20 01/22/20 History aspirin [Aspir-81] 81 mg PO QAM 01/22/20 01/22/20 History clindamycin HCl [Cleocin HCl] 300 mg PO TID 01/22/20 01/22/20 History ondansetron 4 mg PO Q4H PRN 01/22/20 01/22/20 History Past Med/Surg History Medical History Aortic valve stenosis CAD (coronary artery disease) Carotid stenosis Dyslipidemia Hemiplegia affecting right dominant side HTN (hypertension) Monoplegia affecting right dominant side Obesity Proliferative diabetic retinopathy Retinal edema Right foot drop Status post cerebrovascular accident Status post myocardial infarction Superior mesenteric artery stenosis Type 2 diabetes mellitus Surgical History Hx of vitrectomy S/P angioplasty with stent S/P CABG x 3 S/P PTCA (percutaneous transluminal coronary angioplasty) Family History Father Heart disease Social History Smoking Status: Never smoker Tobacco Type: Cigarettes Second Hand Exposure: No; Hx Alcohol Use: No Hx Substance Use: No Preferred Language: [place]an Communication Ability: Effective Visual Impairment: No Limitations Hearing Ability: Normal 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 Beliefs That Will Affect Care: None marital status: Current Living Situation: Spouse Current Living Situation Comment: own home current occupational status: disabled Feels Safe at Home: Yes Safety Concerns: Feels Safe At This Time Review of Systems Review of Systems: All systems reviewed & are unremarkable except as noted in Subjective Physical Exam Physical Exam: CONSTITUTIONAL: WNWD, vitals as above, generally well- appearing EYES: EOMI bilaterally, pupils are round and equal bilaterally, normal conjunctivae, no scleral icterus ENT: external ear and nose normal, oropharynx clear RESPIRATORY: clear to auscultation bilaterally, no crackles, rales or wheezes, normal respiratory effort CARDIOVASCULAR: regular rate and rhythm, S1 and 2 heard with ULISES 3/6, no peripheral edema GASTROINTESTINAL: soft, nontender, nondistended MUSCULOSKELETAL: strength 5/5 throughout x for R arm-cannot extend forward (flexion and extension is intact 5/5 and hand golf manager intact), head is normocephalic and atraumatic, neck supple SKIN: warm and dry NEUROLOGIC: patellar DTRs 2+ bilat. No facial palsy, no dysarthria. CN 2-12 grossly intact, no sensory deficit, normal cognition, normal speech PSYCHIATRIC: alert cooperative and oriented to person, place and time. Results & Data Results & Data ([facility]) Vital Signs (Past 12 Hours) Vital Signs Temp Pulse Resp BP Pulse Ox 01/22/20 16:37 79 20 97 01/22/20 16:09 36.6 C 79 20 155/74 H 97 Laboratory Results Short CBC Short CBC 01/22/20 Range/Units 16:30 WBC 8.22 (4.8-10.8) K/uL Hgb 12.6 L (14.0-18.0) g/dL Hct 38.6 L (42-52) % Plt Count 202 (130-400) K/uL BMP 01/22/20 01/22/20 16:30 17:17 Sodium 138 Potassium 4.1 Chloride 106 Carbon Dioxide 24 BUN 19 H Creatinine 0.84 Glucose 138 H Calcium 9.0 Cardiac Enzymes 01/22/20 Range/Units 16:30 Troponin I < 0.015 (0-0.045) ng/ml Liver Function 01/22/20 01/22/20 Range/Units 16:30 17:17 Total Bilirubin 0.4 (0.2-1) mg/dl AST 10 L (15-37) U/L ALT 19 (12-78) U/L Alkaline Phosphatase 64 (45-117) U/L Albumin 3.2 L (3.4-5.0) gm/dl 01/22/20 Range/Units 16:30 WBC 8.22 (4.8-10.8) K/uL Hgb 12.6 L (14.0-18.0) g/dL Hct 38.6 L (42-52) % Plt Count 202 (130-400) K/uL Diagnostic Findings MRI OF THE BRAIN WITHOUT CONTRAST CLINICAL HISTORY: Right upper extremity weakness. Possible acute stroke. COMPARISON STUDY: Noncontrast head CT performed 12/28/2019, MRI the brain dated 12/02/2019 FINDINGS: Sagittal T1, axial diffusion, proton density and T2 weighted axial, coronal FLAIR, and axial T1-weighted images were acquired. No intra or extra-axial mass lesions are visualized There is a small focus of restricted water diffusion at the level of the right frontoparietal parafalcine junction. There is mild ventricular dilatation likely secondary to volume loss. Proton density T2-weighted and FLAIR images reveal moderately extensive foci of increased T2 signal within the white matter, likely on a small vessel basis. There are multiple old scattered lacunar infarcts. There is increased T2 signal within the left central sarabjit, likely secondary to an old lacunar infarct. There are no abnormal flow voids. IMPRESSION: 1. Interval development of a small focus of restricted water diffusion at the level the right frontoparietal parafalcine junction, consistent with a small acute/subacute infarct 2. Moderately extensive white matter disease, and multiple old bilateral lacunar infarcts 3. No MRI evidence of acute hemorrhage. XR chest 1V portable CLINICAL HISTORY: weakness COMPARISON STUDY: 12/28/2019 FINDINGS: There are postsurgical changes of midline sternotomy. The cardiac and mediastinal contours remain stable. There is no failure. There is no focal pulmonary consolidation. There are no pleural effusions.[ IMPRESSION: No active disease in the chest. ECG Rhythm: sinus rhythm Change: no significant change Code Status & VTE Plan Code Status full code VTE Prophylaxis Plan VTE Prophylaxis will be ordered: Yes
[2020-01-22 17:19] LABS: Alanine Aminotransferase 19 U/L (12-78); Albumin Globulin Ratio 0.8 (0.9-2); Albumin Level 3.2 gm/dl (3.4-5.0); Alkaline Phosphatase 64 U/L (45-117); Bilirubin,Total 0.4 mg/dl (0.2-1); Blood Urea Nitrogen 19 mg/dl (7-18); Carbon Dioxide 24 mmol/L (21-32); Chloride 106 mmol/L (98-107); Creatinine Clr Calc Pharmacy 108.2 ml/min; Est GFR (African American) 109.5; Est GFR (Non-African American) 94.5; Globulin 4.1 gm/dl (2.5-4.0); Glucose 138 mg/dl (70-99); Sodium 138 mmol/L (136-145); Total Protein 7.3 gm/dl (6.4-8.2); Troponin I < 0.015 ng/ml (0-0.045)
[2020-01-22 17:56] LABS: Potassium 4.1 mmol/L (3.5-5.1)
[2020-01-22 17:57] LABS: INR 1.2 (0.9-1.1); Partial Thromboplastin Ratio 1.1; Partial Thromboplastin Time 29.8 Seconds (21.0-31.0); Prothrombin Time 12.1 Seconds (9.0-12.0)
[2020-01-22 18:01] LABS: Magnesium 1.5 mg/dl (1.8-2.4)
[2020-01-22] MEDS ORDERED: MAGNESIUM SULFATE / D5W 1 GM/100 ML BAG IV STA (18:05)
[2020-01-22] MEDS ORDERED: TAMSULOSIN HCL 0.4 MG CAP PO SCH (21:00)
[2020-01-22] MEDS ORDERED: GLUCAGON FOR INJ 1 MG VIAL SQ PRN (21:31)
[2020-01-22] MEDS ORDERED: GLUCOSE 10 TABS/TUBE PO PRN (21:31)
[2020-01-22] MEDS ORDERED: DEXTROSE 50% 50 ML SYRINGE IV PRN (21:31)
[2020-01-22] MEDS ORDERED: GLUCOSE 40% GEL 15 GM TUBE PO PRN (21:31)
[2020-01-22] MEDS ORDERED: NITROGLYCERIN SL 0.4 MG/TAB TAB SL PRN (21:31)
[2020-01-22] MEDS ORDERED: CARBOHYDRATES FOR HYPOGLYCEMIA PO PRN (21:31)
[2020-01-22] MEDS ORDERED: ACETAMINOPHEN 325 MG TAB PO PRN (21:31)
[2020-01-22] MEDS: MAGNESIUM SULFATE / D5W 1 GM/100 ML BAG IV SCH ×2 (22:09→23:53)
[2020-01-22] MEDS: CLINDAMYCIN HCL 150 MG CAP PO SCH (22:19)
[2020-01-22] MEDS: APIXABAN 5 MG TABLET PO SCH (22:20)
[2020-01-22] MEDS: carvediloL 12.5 MG TAB PO SCH (22:20)
[2020-01-22] MEDS: ATORVASTATIN 40 MG TAB PO SCH (22:20)
[2020-01-22] MEDS: INSULIN ASPART 100 UNITS/ML 3 ML PEN SC SCH (22:25)
[2020-01-22] MEDS: INSULIN GLARGINE SOLOSTAR 100 UNITS/ML 3 ML PEN SC SCH (22:26)
[2020-01-22] MEDS: TAMSULOSIN HCL 0.4 MG CAP PO SCH (23:11)
[2020-01-23 07:22] LABS: Basophils # (auto) 0.01 K/uL (0-0.2); Basophils % (auto) 0.2 %; Eosinophils # (auto) 0.26 K/uL (0-0.5); Eosinophils % (auto) 4.4 %; Hematocrit (blood only) 36.1 % (42-52); Hemoglobin 11.8 g/dL (14.0-18.0); Immature Granulocytes # (auto) 0.01 K/uL (0.00-0.02); Immature Granulocytes % (auto) 0.2 %; Lymphocytes # (auto) 1.65 K/uL (1.2-3.4); Lymphocytes % (auto) 27.7 %; Mean Corpuscular Hemoglobin 26.3 pg (25-34); Mean Corpuscular Hgb Conc 32.7 g/dL (32-36); Mean Corpuscular Volume 80.4 fL (80-100); Mean Platelet Volume 10.5 fL (7.4-10.4); Monocytes # (auto) 0.49 K/uL (0.11-0.59); Monocytes % (auto) 8.2 %; Neutrophils # (auto) 3.53 K/uL (1.4-6.5); Neutrophils % (auto) 59.3 %; Platelet Count 169 K/uL (130-400); RDW Coefficient of Variation 14.5 % (11.5-14.5); RDW Standard Deviation 42.4 fL (36.4-46.3); Red Blood Count 4.49 M/uL (4.7-6.1); White Blood Count 5.95 K/uL (4.8-10.8)
[2020-01-23] MEDS ORDERED: INSULIN ASPART 100 UNITS/ML 3 ML PEN SC SCH (07:30)
[2020-01-23 07:47] LABS: BUN Creatinine Ratio 20.8 (10-20); Calcium 8.8 mg/dl (8.5-10.1); Creatinine Clr Calc Pharmacy 113.6 ml/min; Est GFR (African American) 111.7; Est GFR (Non-African American) 96.4; Magnesium 2.1 mg/dl (1.8-2.4); Potassium 3.9 mmol/L (3.5-5.1)
[2020-01-23] MEDS: INSULIN ASPART 100 UNITS/ML 3 ML PEN SC SCH ×4 (07:51→20:49)
[2020-01-23] MEDS: BACLOFEN 10 MG TAB PO SCH (08:20)
[2020-01-23] MEDS: lisinopriL 20 MG TAB PO SCH (08:21)
[2020-01-23] MEDS: APIXABAN 5 MG TABLET PO SCH ×2 (08:21→20:46)
[2020-01-23] MEDS: ASPIRIN 81 MG ECTAB PO SCH (08:21)
[2020-01-23] MEDS: INSULIN GLARGINE SOLOSTAR 100 UNITS/ML 3 ML PEN SC SCH ×2 (08:21→20:48)
[2020-01-23] MEDS: carvediloL 12.5 MG TAB PO SCH ×2 (08:21→20:46)
[2020-01-23] MEDS: CLOPIDOGREL BISULFATE 75 MG TAB PO SCH (08:21)
[2020-01-23] MEDS: CLINDAMYCIN HCL 150 MG CAP PO SCH ×3 (08:21→20:47)
--- NOTE | 2020-01-23 10:38 | Cardiology Consultation ---
Date of Consultation January 23, 2020 Assessment & Plan (1) Acute cerebrovascular accident: (2) Hematoma of left thigh: (3) H/O: CVA (cerebrovascular accident): (4) Osteomyelitis of great toe of right foot: (5) Coronary artery disease: Once again the patient has were counseled that there is no overt cardiac indication for anticoagulation. He carries no history of atrial fibrillation nor has any episodes been discovered with his recurrent strokes. Unfortunately, he has now had another stroke despite being on Eliquis. After lengthy discussion on the benefits, risks and alternatives with the patient his they both state that they would prefer to remain on chronic anticoagulation to help reduce further CVAs. Since he has been on Coumadin in the past they would prefer to switch back His also voiced strongly that she would like to have a home INR monitoring kit so they can keep a close eye on his INR given his history of hematoma. I will contact our [facility] clinic to see if this is possible. Otherwise, no other medication changes will be made today. No further cardiac testing is necessary. Given that he is in normal sinus rhythm I see no need to bridge him with the Coumadin. History of Present Illness Reason for Consultation: new cva Requesting Physician: Dr. Carr Attending Physician: Jolie Carr MD History of Present Illness It was my pleasure to see Mr. Turner in cardiac consultation today January 23, 2020. He is a very pleasant 59-year-old gentleman who routinely follows with Dr. Meliton Huff of our Cardiology practice. He presented to the emergency department earlier today with complaints of Past medical hx as per most recent outpatient cardiology visit: 1. Asymptomatic, borderline severe to severe aortic valve stenosis 2. 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 in th e setting of diabetes for which patient initially underwent off pump 3 vessel coronary artery bypass grafting in 2006 with DUARTE to LAD, SVG to circumflex and SVG to PDA 3. Bare metal stent to protected left main coronary artery 08/13/2015 4. PCI drug-eluting stent to the saphenous vein graft to RPDA 04/17/2014 5. PCI, drug-eluting stent to the ostial portion of the SVG to RCA 12/04/2014 for severe in stent restenosis 6. Moderate carotid occlusive disease 7. Cerebral vascular disease status post bilateral frontal infarctions on 05/30/2015 while he was already on dual anti-platelet therapy with aspirin and clopidogrel, prompting initiation of warfarin at that time, recurrent stroke 11/2017 8. Diabetes 9. Dyslipidemia 10. R great toeulcer /osteomyelitis Allergies Allergy/AdvReac Type Severity Reaction Status Date / Time No Known Allergies Allergy Verified 01/22/20 17:33 Home Medications Home Medications Medication Instructions Recorded Confirmed Type atorvastatin 80 mg tablet 80 mg PO QPM 07/10/18 01/22/20 History baclofen 5 mg tablet 5 mg PO QAM tab 07/10/18 01/22/20 History carvedilol 12.5 mg tablet 12.5 mg PO BID 07/10/18 01/22/20 History clopidogrel 75 mg tablet 75 mg PO QAM 07/10/18 01/22/20 History insulin glargine 100 unit/mL 18 units SQ AMPM ml 07/10/18 01/22/20 History subcutaneous solution metformin 1,000 mg tablet 1,000 mg PO BID 07/10/18 01/22/20 History insulin aspart U-100 [Novolog 10 unit SUBCUT AC 09/08/18 01/22/20 History U-100 Insulin aspart] nitroglycerin 0.4 mg SUBLINGUAL DIRECTED PRN 08/09/19 01/22/20 History lisinopril 20 mg PO QAM #30 tab 01/01/20 01/22/20 Rx Saccharomyces boulardii [Florastor] 250 mg PO QAM 01/22/20 01/22/20 History amlodipine [Norvasc] 5 mg PO QAM 01/22/20 01/22/20 History apixaban [Eliquis] 5 mg PO BID 01/22/20 01/22/20 History aspirin [Aspir-81] 81 mg PO QAM 01/22/20 01/22/20 History clindamycin HCl [Cleocin HCl] 300 mg PO TID 01/22/20 01/22/20 History ondansetron 4 mg PO Q4H PRN 01/22/20 01/22/20 History Patient History Medical History Aortic valve stenosis CAD (coronary artery disease) Carotid stenosis Dyslipidemia Hemiplegia affecting right dominant side HTN (hypertension) Monoplegia affecting right dominant side Obesity Proliferative diabetic retinopathy Retinal edema Right foot drop Status post cerebrovascular accident Status post myocardial infarction Superior mesenteric artery stenosis Type 2 diabetes mellitus Surgical History Hx of vitrectomy S/P angioplasty with stent S/P CABG x 3 S/P PTCA (percutaneous transluminal coronary angioplasty) Family History Father Heart disease Social History Smoking Status: Never smoker Tobacco Type: Cigarettes Second Hand Exposure: No; Hx Alcohol Use: No Hx Substance Use: No Preferred Language: Prydein[place] Communication Ability: Effective Visual Impairment: No Limitations Hearing Ability: Normal Commutator Repairer Required: No Beliefs That Will Affect Care: None marital status: Current Living Situation: Spouse Current Living Situation Comment: own home current occupational status: disabled Feels Safe at Home: Yes Review of Systems Review of Systems: All systems reviewed & are unremarkable except as noted in HPI & below Physical Exam Physical Exam: General: Awake, alert and oriented x 3. No acute distress. HEENT: Normocephalic, atraumatic. Pupils equal, round and reactive to light and accommodation. Extraocular muscles are intact. Anicteric sclera. Moist mucous membranes. Neck: No JVD. No bruit. Cardiovascular: Regular. Positive S-4. Normal S-1 and S-2. No S-3. 3/6 mid to late systolic ejection murmur, greatest at the right sternal border, second intercostal space with radiation to the bilateral carotids. No rubs. Pulmonary: Clear to auscultation bilaterally. No rales, rhonchi, or wheezing. Abdomen: Bowel sounds x 4, soft. No rebound, guarding or tenderness. No organomegaly. Extremities: No clubbing, cyanosis or edema. +2 pedal pulses bilaterally. Skin: Warm and dry. Results & Data ([facility]) Vital Signs (Past 12 Hours) Vital Signs Temp Pulse Pulse Pulse Resp BP Pulse Ox 01/23/20 07:12 36.6 C 62 18 124/68 96 01/23/20 03:54 36.5 C 76 20 94/61 L 98 01/23/20 02:00 62 16 103/68 01/22/20 23:10 64 (1) Hematoma of left thigh Encounter type: initial encounter Qualified Code(s): S70.12XA - Contusion of left thigh, initial encounter
--- NOTE | 2020-01-23 12:04 | Electrocardiogram Report ---
Test Reason : Blood Pressure : / mmHG Vent. Rate : 070 BPM Atrial Rate : 070 BPM P-R Int : 148 ms QRS Dur : 082 ms QT Int : 390 ms P-R-T Axes : 045 010 122 degrees QTc Int : 421 ms Normal sinus rhythm Left atrial enlargement Inferior infarct (cited on or before 13-OCT-2006) Anterolateral infarct (cited on or before 13-OCT-2006) Abnormal ECG When compared with ECG of 28-DEC-2019 15:46, Premature ventricular complexes are no longer Present Confirmed by Giorgio Aden ([id number]) on 01/23/2020 12:03:46 PM Referred By: Dereck Zaman Confirmed By:Giorgio Aden
--- NOTE | 2020-01-23 12:31 | Electrocardiogram Report ---
Test Reason : Blood Pressure : / mmHG Vent. Rate : 059 BPM Atrial Rate : 059 BPM P-R Int : 158 ms QRS Dur : 090 ms QT Int : 432 ms P-R-T Axes : 037 -08 129 degrees QTc Int : 427 ms Sinus bradycardia Left atrial enlargement Inferior infarct (cited on or before 13-OCT-2006) Anterolateral infarct (cited on or before 13-OCT-2006) Abnormal ECG When compared with ECG of 22-JAN-2020 16:19, (unconfirmed) No significant change was found Confirmed by Giorgio Aden ([id number]) on 01/23/2020 12:30:58 PM Referred By: Dereck Zaman Confirmed By:Giorgio Aden
--- NOTE | 2020-01-23 13:15 | Hospitalist Progress Note ---
Date of Service January 23, 2020 Assessment & Plan (1) Acute cerebrovascular accident: Has been complaining of right upper extremity stiffness and weakness involving right upper and lower extremities for the last 2 to 3 days History of prior CVA with right hemiparesis and paroxysmal atrial fibrillation He is compliant with Eliquis therapy and is on ASA and Plavix for secondary prophylaxis of stroke. No other associated neuro deficit on examination MRI of the brain showed-1. Interval development of a small focus of restricted water diffusion at the level the right frontoparietal parafalcine junction, consistent with a small acute/subacute infarct 2. Moderately extensive white matter disease, and multiple old bilateral lacunar infarcts 3. No MRI evidence of acute hemorrhage. Awaiting neuro evaluation and recommendation We will continue PT and OT We will continue aspirin, Plavix and Eliquis for now (2) H/O: CVA (cerebrovascular accident): Cont ASA, Plavix and Elliquis. Allow permissive HTN--notify physician if BP rises above 220/120. (3) Type 2 diabetes mellitus: Hold home medications and cont treating him with basal/bolus insulin while admitted. SSI while in the hospital (4) HTN (hypertension): Allow permissive HTN for two days. Permissive hypertension Hold amlodipine and prinivil. We will continue carvedilol to keep heart in sinus rhythm (5) Hypomagnesemia: replace and repeat in am Magnesium is 2.1 as of 01/22/2020. (6) Osteomyelitis of great toe of right foot: Continue prophylactic clindamycin. No symptoms (7) Aortic stenosis, severe: Known issue. Low salt diet. Continue to monitor. Appreciate cardiology input and recommendation (8) Increased urinary frequency: IPSS score was 8 on prior hospitalization and he was started on Flomax. this was not continued or given at [facility]. Will restart this now and have him seen by Urology with persistent increased frequency of urination. Discussed with urologist He will have an outpatient appointment on discharge (9) Coronary artery disease: Denies any SOB or chest pain at this time. Appears stable disease. Cont medical management including ASA, Coreg, Lipitor, Plavix. Has abnormal EKG consistent with inferior and anterolateral infarct which have been there is a chronic finding (10) DVT prophylaxis: Eliquis Full Code Dispo-to telemetry Discussed with the in detail Admission and Anticipated Discharge Date Admission Date: January 22, 2020 Subjective 01/23/2020 The patient was seen and examined in medical telemetry unit He is a 59-year-old male with significant past medical history including paroxysmal atrial fibrillation on Eliquis with history of CVA and right hemiparesis in the past. He was admitted yesterday with another stroke. Complains to have little more right upper extremity stiffness and weakness and to some extent right lower extremity weakness as well Denies any other neurological symptoms Denies any chest pain, palpitation, shortness of breath, any abdominal pain, nausea and/or vomiting Review of Systems Review of Systems: All systems reviewed and are unremarkable except as noted below Neurologic: + paralysis (Partial paralysis involving the right side extremities) and + abnormal speech (Chronic but communicative); no numbness Physical Exam Physical Exam: Sitting on a chair without any acute distress Constitutional: well developed, well nourished, + acute distress (Minimal discomfort due to right upper extremity with stiffness) and + ill appearing Eyes: PERRL, conjunctivae normal, anicteric sclerae ENMT: external ear and nose normal, oropharynx normal Neck: trachea midline, no thyromegaly Respiratory: normal respiratory effort; no respiratory distress Auscultation: lungs clear to auscultation bilaterally Cardiovascular: Rate/Rhythm: regular rate and regular rhythm Heart Sounds: + murmur (2/6 ESM over precordium) Extremities: no edema Gastrointestinal (Abdomen): Inspection/Auscultation: abdomen normal to inspection and normal bowel sounds; abdomen not distended Percussion/Palpation: abdomen soft; abdomen nontender Musculoskeletal: Stiffness involving right upper and lower extremity movements. No acute arthritis involving any joints Neurologic: moves all extremities and + focal motor deficit (Right-sided extremities are weaker than the left, no sensory abnormality) Speech / Cognition: + abnormal speech (Residual speech abnormality from prior stroke) Motor/Sensory: no tremor Lymphatic: no cervical or axillary lymphadenopathy Results & Data Results & Data ([facility]) Vital Signs (Past 12 Hours) Vital Signs Temp Pulse Pulse Resp BP Pulse Ox 01/23/20 11:56 36.4 C L 79 18 114/61 92 01/23/20 07:12 36.6 C 62 18 124/68 96 01/23/20 03:54 36.5 C 76 20 94/61 L 98 01/23/20 02:00 62 16 103/68 Laboratory Results Short CBC 01/22/20 01/23/20 Range/Units 16:30 07:10 WBC 8.22 5.95 (4.8-10.8) K/uL Hgb 12.6 L 11.8 L (14.0-18.0) g/dL Hct 38.6 L 36.1 L (42-52) % Plt Count 202 169 (130-400) K/uL BMP 01/22/20 01/22/20 01/23/20 16:30 17:17 07:10 Sodium 138 140 Potassium 4.1 3.9 Chloride 106 108 H Carbon Dioxide 24 28 BUN 19 H 17 Creatinine 0.84 0.80 Glucose 138 H 144 H Calcium 9.0 8.8 Cardiac Enzymes 01/22/20 Range/Units 16:30 Troponin I < 0.015 (0-0.045) ng/ml Liver Function 01/22/20 01/22/20 Range/Units 16:30 17:17 Total Bilirubin 0.4 (0.2-1) mg/dl AST 10 L (15-37) U/L ALT 19 (12-78) U/L Alkaline Phosphatase 64 (45-117) U/L Albumin 3.2 L (3.4-5.0) gm/dl Medications Administered Current Inpatient Medications Acetaminophen (Acetaminophen 325 Mg Tab) 650 mg PO Q4H PRN PRN Reason: Pain or Fever Stop: 02/21/20 21:30 Apixaban (Apixaban 5 Mg Tablet) 5 mg PO BID [facility] Stop: 02/21/20 21:30 Last Admin: 01/23/20 08:21 Dose: 5 mg Documented by: Aspirin (Aspirin 81 Mg Ectab) 81 mg PO QAM [facility] Stop: 02/22/20 08:59 Last Admin: 01/23/20 08:21 Dose: 81 mg Documented by: Atorvastatin Calcium (Atorvastatin 40 Mg Tab) 80 mg PO QPM [facility] Stop: 02/21/20 21:30 Last Admin: 01/22/20 22:20 Dose: 80 mg Documented by: Baclofen (Baclofen 10 Mg Tab) 5 mg PO QAM [facility] Stop: 02/22/20 08:59 Last Admin: 01/23/20 08:20 Dose: 5 mg Documented by: Carvedilol (Carvedilol 12.5 Mg Tab) 12.5 mg PO BID [facility] Stop: 02/21/20 21:30 Last Admin: 01/23/20 08:21 Dose: 12.5 mg Documented by: Clindamycin HCl (Clindamycin Hcl 150 Mg Cap) 300 mg PO TID [facility] Stop: 02/21/20 21:30 Last Admin: 01/23/20 08:21 Dose: 300 mg Documented by: Clopidogrel Bisulfate (Clopidogrel Bisulfate 75 Mg Tab) 75 mg PO QAM [facility] Stop: 02/22/20 08:59 Last Admin: 01/23/20 08:21 Dose: 75 mg Documented by: Dextrose (Dextrose 50% 50 Ml Syringe) 25 - 50 ml IV UD PRN; Protocol PRN Reason: Hypoglycemia Protocol Stop: 02/21/20 21:30 Glucagon (Glucagon For Inj 1 Mg Vial) 1 mg SQ UD PRN; Protocol PRN Reason: Hypoglycemia Protocol Stop: 02/21/20 21:30 Glucose (Glucose 10 Tabs/Tube) 4 - 8 tabs PO UD PRN; Protocol PRN Reason: Hypoglycemia Protocol Stop: 02/21/20 21:30 Glucose (Glucose 40% Gel 15 Gm Tube) 15 - 30 gm PO UD PRN; Protocol PRN Reason: Hypoglycemia Protocol Stop: 02/21/20 21:30 Insulin Aspart (Insulin Aspart 100 Units/Ml 3 Ml Pen) 0 units SC ACHS [facility] Stop: 02/21/20 21:30 Last Admin: 01/23/20 12:03 Dose: 7 units Documented by: Insulin Glargine (Insulin Glargine Solostar 100 Units/Ml 3 Ml Pen) 10 units SC BID [facility] Stop: 02/21/20 21:30 Last Admin: 01/23/20 08:21 Dose: 10 units Documented by: Lisinopril (Lisinopril 20 Mg Tab) 20 mg PO QAM [facility] Stop: 02/22/20 08:59 Last Admin: 01/23/20 08:21 Dose: 20 mg Documented by: Miscellaneous (Carbohydrates For Hypoglycemia ) 15 - 30 gm PO UD PRN PRN Reason: Hypoglycemia Protocol Stop: 02/21/20 21:30 Miscellaneous Information (Pharmacist Discharge Med Rec Consult) 1 ea N/A UD PRN PRN Reason: Consult Stop: 02/21/20 16:47 Nitroglycerin (Nitroglycerin Sl 0.4 Mg/Tab Tab) 0.4 mg SL UD PRN PRN Reason: Chest Pain Stop: 02/21/20 21:30 Tamsulosin HCl (Tamsulosin Hcl 0.4 Mg Cap) 0.4 mg PO HS SUMA Stop: 02/21/20 21:30 Last Admin: 01/22/20 23:11 Dose: Not Given Documented by:
[2020-01-23 15:38] LABS: Appearance Urine Clear (Clear); Bilirubin Urine Negative (Negative); Blood Urine Negative (Negative); Color Urine Yellow; Glucose Urine UA 1+ (Negative); Ketones Urine Negative (Negative); Leukocyte Esterase Urine Negative (Negative); Nitrite Urine Negative (Negative); Protein Urine Negative (Negative); Urobilinogen Urine Negative (Negative)
--- NOTE | 2020-01-23 16:21 | Communication Note ---
Date of Service: January 23, 2020 I saw Deja today at the request of Dr. George. He has multiple vascular risk factors due to underlying diabetes dyslipidemia hypertension has had coronary artery bypass grafting, a prior left hemisphere CVA with a right hemiparesis, and about 6 weeks ago had urinary tract infection and was admitted to the hospital with an extremely high INR. He had been on Coumadin aspirin and Plavix for several years after his stroke and bypass grafting and the Coumadin was stopped and he was switched to Eliquis He was discharged to [facility] and released return home but was not doing well and then was admitted to [facility] for about a week. On the day of discharge he developed nausea and vomiting had to be briefly readmitted and hydrated then went home but it was clear this past weekend that he was not back to his old baseline and his thought he had more clumsiness of the right arm and a worsening right sided hemiparesis A subsequent MRI showed evidence for small infarction involving the left hemisphere which would explain anatomically the clumsiness with his right hand and the question is raised now about his anticoagulation program specifically whether neurology would suggest he will any alternatives He is already been seen by cardiology and is known to Dr. Bashir My exam shows a right hemiparesis that hesitant speech the dysarthria all of which to me is similar to his baseline I know him well from prior evaluations but his right hand according to both his and himself is still clumsy and is worse than it was while he was at [facility] and this certainly correlates with the findings on MRI. Neurology really does not have a whole lot to suggest here other than perhaps a consideration of returning to the Coumadin as he was free of recurrent cerebrovascular accidents when he was on the Coumadin plus the aspirin and Plavix and now has had another event while on Eliquis instead of Coumadin. He remains in atrial fibrillation at least has paroxysmal atrial fibrillation and this event could certainly have been an embolic one The decision however is going to have to rest with cardiology and he considered in light of his prior one time extreme elevation of an INR associated with a urinary tract infection and only a month of not having his INR monitoring done versus the overall improved safety with Eliquis compared to Coumadin in terms of bleeding I am going to sign off the case for now. I see no role for changing his antiplatelet agents as they have been constant in the equation with the only variable historically being the recent switch from Coumadin to Eliquis. Garrick Ansari MD
[2020-01-23] MEDS: TAMSULOSIN HCL 0.4 MG CAP PO SCH (20:48)
[2020-01-23] MEDS: ATORVASTATIN 40 MG TAB PO SCH (20:50)
[2020-01-24 06:25] LABS: Basophils # (auto) 0.01 K/uL (0-0.2); Basophils % (auto) 0.1 %; Eosinophils # (auto) 0.26 K/uL (0-0.5); Eosinophils % (auto) 3.7 %; Hematocrit (blood only) 36.2 % (42-52); Hemoglobin 11.8 g/dL (14.0-18.0); Immature Granulocytes # (auto) 0.01 K/uL (0.00-0.02); Immature Granulocytes % (auto) 0.1 %; Lymphocytes # (auto) 1.85 K/uL (1.2-3.4); Lymphocytes % (auto) 26.7 %; Mean Corpuscular Hemoglobin 26.1 pg (25-34); Mean Corpuscular Hgb Conc 32.6 g/dL (32-36); Mean Corpuscular Volume 80.1 fL (80-100); Mean Platelet Volume 10.2 fL (7.4-10.4); Monocytes # (auto) 0.49 K/uL (0.11-0.59); Monocytes % (auto) 7.1 %; Neutrophils # (auto) 4.32 K/uL (1.4-6.5); Neutrophils % (auto) 62.3 %; Platelet Count 162 K/uL (130-400); RDW Coefficient of Variation 14.3 % (11.5-14.5); RDW Standard Deviation 41.7 fL (36.4-46.3); Red Blood Count 4.52 M/uL (4.7-6.1); White Blood Count 6.94 K/uL (4.8-10.8)
[2020-01-24 06:56] LABS: BUN Creatinine Ratio 22.6 (10-20); Creatinine Clr Calc Pharmacy 119.6 ml/min; Est GFR (African American) 114.1; Est GFR (Non-African American) 98.5
[2020-01-24] MEDS: carvediloL 12.5 MG TAB PO SCH ×2 (08:25→21:25)
[2020-01-24] MEDS: CLINDAMYCIN HCL 150 MG CAP PO SCH ×3 (08:25→21:25)
[2020-01-24] MEDS: INSULIN GLARGINE SOLOSTAR 100 UNITS/ML 3 ML PEN SC SCH ×2 (08:26→21:26)
[2020-01-24] MEDS: ASPIRIN 81 MG ECTAB PO SCH (08:26)
[2020-01-24] MEDS: BACLOFEN 10 MG TAB PO SCH (08:26)
[2020-01-24] MEDS: CLOPIDOGREL BISULFATE 75 MG TAB PO SCH (08:26)
[2020-01-24] MEDS: INSULIN ASPART 100 UNITS/ML 3 ML PEN SC SCH ×4 (08:26→21:26)
[2020-01-24] MEDS: APIXABAN 5 MG TABLET PO SCH (08:26)
--- NOTE | 2020-01-24 14:00 | Hospitalist Progress Note ---
Date of Service January 24, 2020 Assessment & Plan (1) Acute cerebrovascular accident: Has been complaining of right upper extremity stiffness and weakness involving right upper and lower extremities for the last 2 to 3 days History of prior CVA with right hemiparesis and paroxysmal atrial fibrillation He is compliant with Eliquis therapy and is on ASA and Plavix for secondary prophylaxis of stroke. No other associated neuro deficit on examination MRI of the brain showed-1. Interval development of a small focus of restricted water diffusion at the level the right frontoparietal parafalcine junction, consistent with a small acute/subacute infarct 2. Moderately extensive white matter disease, and multiple old bilateral lacunar infarcts 3. No MRI evidence of acute hemorrhage. Appreciate neurology input and recommendation; advised to try Coumadin instead of Eliquis Appreciate seamless tube roller initiation to restart Coumadin after discussion with the patient and the Coumadin has been started from today the dose of 7.5 mg no bridging will be required as per the seamless tube roller to decrease the risk of bleeding He will be staying in the hospital being very high risk patient Will continue with aspirin and Plavix as before Discussed with the in detail (2) H/O: CVA (cerebrovascular accident): Cont ASA, Plavix and Elliquis. Allow permissive HTN--notify physician if BP rises above 220/120. (3) Type 2 diabetes mellitus: Hold home medications and cont treating him with basal/bolus insulin while admitted. SSI while in the hospital (4) HTN (hypertension): Allow permissive HTN for two days. Permissive hypertension Hold amlodipine and prinivil. We will continue carvedilol to keep heart in sinus rhythm (5) Hypomagnesemia: replace and repeat in am Magnesium is 2.1 as of 01/22/2020. (6) Osteomyelitis of great toe of right foot: Continue prophylactic clindamycin. No symptoms (7) Aortic stenosis, severe: Known issue. Low salt diet. Continue to monitor. Appreciate cardiology input and recommendation (8) Increased urinary frequency: IPSS score was 8 on prior hospitalization and he was started on Flomax. this was not continued or given [facility]. Will restart this now and have him seen by Urology with persistent increased frequency of urination. Discussed with urologist He will have an outpatient appointment on discharge (9) Coronary artery disease: Denies any SOB or chest pain at this time. Appears stable disease. Cont medical management including ASA, Coreg, Lipitor, Plavix. Has abnormal EKG consistent with inferior and anterolateral infarct which have been there is a chronic finding No acute cardiac symptoms (10) DVT prophylaxis: Eliquis has been discontinued and Coumadin has been restarted as of 01/24/2020 Full Code Dispo-to telemetry Discussed with the in detail Likely discharge on Tuesday Admission and Anticipated Discharge Date Admission Date: January 22, 2020 Subjective 01/23/2020 The patient was seen and examined in medical telemetry unit He is a 59-year-old male with significant past medical history including paroxys mal atrial fibrillation on Eliquis with history of CVA and right hemiparesis in the past. He was admitted yesterday with another stroke. Complains to have little more right upper extremity stiffness and weakness and to some extent right lower extremity weakness as well Denies any other neurological symptoms Denies any chest pain, palpitation, shortness of breath, any abdominal pain, nausea and/or vomiting 01/24/2020 The patient was seen and examined in medical telemetry unit in presence of the He denies any new symptoms and weakness and stiffness involving the right side extremities have been improving He is willing to try Coumadin in place of Eliquis and that was discussed extensively between the patient, the and the seamless tube roller Review of Systems Review of Systems: All systems reviewed and are unremarkable except as noted below Neurologic: + paralysis (Partial paralysis involving the right side extremities) and + abnormal speech (Chronic but communicative); no numbness Physical Exam Physical Exam: Sitting on a chair without any acute distress Constitutional: well developed, well nourished, + acute distress (Minimal discomfort due to right upper extremity with stiffness) and + ill appearing Eyes: PERRL, conjunctivae normal, anicteric sclerae ENMT: external ear and nose normal, oropharynx normal Neck: trachea midline, no thyromegaly Respiratory: normal respiratory effort; no respiratory distress Auscultation: lungs clear to auscultation bilaterally Cardiovascular: Rate/Rhythm: regular rate and regular rhythm Heart Sounds: + murmur (2/6 ESM over precordium) Extremities: no edema Gastrointestinal (Abdomen): Inspection/Auscultation: abdomen normal to inspection and normal bowel sounds; abdomen not distended Percussion/Palpation: abdomen soft; abdomen nontender Neurologic: moves all extremities and + focal motor deficit (Right-sided extremities are weaker than the left, no sensory abnormality) Speech / Cognition: + abnormal speech (Residual speech abnormality from prior stroke) Motor/Sensory: no tremor Lymphatic: no cervical or axillary lymphadenopathy Results & Data Results & Data ([facility]) Vital Signs (Past 12 Hours) Vital Signs Temp Pulse Pulse Resp BP Pulse Ox 01/24/20 11:25 36.4 C L 74 18 97/63 L 97 01/24/20 07:50 36.6 C 60 18 150/77 H 96 01/24/20 07:24 86 01/24/20 03:05 37.0 C 67 20 125/75 96 Laboratory Results Short CBC 01/24/20 Range/Units 06:05 WBC 6.94 (4.8-10.8) K/uL Hgb 11.8 L (14.0-18.0) g/dL Hct 36.2 L (42-52) % Plt Count 162 (130-400) K/uL BMP 01/24/20 06:05 Sodium 142 Potassium 4.0 Chloride 111 H Carbon Dioxide 26 BUN 17 Creatinine 0.76 Glucose 143 H Calcium 9.0 Urine 01/23/20 Range/Units 15:15 Urine Color Yellow Urine Appearance Clear (Clear) Urine pH 5.0 (4.5-7.5) Ur Specific [place] 1.020 (1.000-1.030) Urine Protein Negative (Negative) Urine Glucose (UA) 1+ H (Negative) Medications Administered Current Inpatient Medications Acetaminophen (Acetaminophen 325 Mg Tab) 650 mg PO Q4H PRN PRN Reason: Pain or Fever Stop: 02/21/20 21:30 Aspirin ([facility]in 81 Mg Ectab) [facility] Stop: 02/22/20 08:59 Last Admin: 01/24/20 08:26 Dose: 81 mg Documented by: Atorvastatin Calcium (Atorvastatin 40 Mg Tab) 80 mg PO QPM [facility] Stop: 02/21/20 21:30 Last Admin: 01/23/20 20:50 Dose: 80 mg Documented by: Baclofen (Baclofen 10 Mg Tab) 5 mg PO QAM [facility] Stop: 02/22/20 08:59 Last Admin: 01/24/20 08:26 Dose: 5 mg Documented by: Carvedilol (Carvedilol 12.5 Mg Tab) 12.5 mg PO BID [facility] Stop: 02/21/20 21:30 Last Admin: 01/24/20 08:25 Dose: 12.5 mg Documented by: Clindamycin HCl (Clindamycin Hcl 150 Mg Cap) 300 mg PO TID [facility] Stop: 02/21/20 21:30 Last Admin: 01/24/20 13:03 Dose: 300 mg Documented by: Clopidogrel Bisulfate (Clopidogrel Bisulfate 75 Mg Tab) 75 mg PO QAM [facility] Stop: 02/22/20 08:59 Last Admin: 01/24/20 08:26 Dose: 75 mg Documented by: Dextrose (Dextrose 50% 50 Ml Syringe) 25 - 50 ml IV UD PRN; Protocol PRN Reason: Hypoglycemia Protocol Stop: 02/21/20 21:30 Glucagon (Glucagon For Inj 1 Mg Vial) 1 mg SQ UD PRN; Protocol PRN Reason: Hypoglycemia Protocol Stop: 02/21/20 21:30 Glucose (Glucose 10 Tabs/Tube) 4 - 8 tabs PO UD PRN; Protocol PRN Reason: Hypoglycemia Protocol Stop: 02/21/20 21:30 Glucose (Glucose 40% Gel 15 Gm Tube) 15 - 30 gm PO UD PRN; Protocol PRN Reason: Hypoglycemia Protocol Stop: 02/21/20 21:30 Insulin Aspart (Insulin Aspart 100 Units/Ml 3 Ml Pen) 0 units SC ACHS [facility] Stop: 02/21/20 21:30 Last Admin: 01/24/20 13:03 Dose: 8 units Documented by: Insulin Glargine (Insulin Glargine Solostar 100 Units/Ml 3 Ml Pen) 10 units SC BID [facility] Stop: 02/21/20 21:30 Last Admin: 01/24/20 08:26 Dose: 10 units Documented by: Lisinopril (Lisinopril 20 Mg Tab) 20 mg PO QAM [facility] Stop: 02/22/20 08:59 Last Admin: 01/23/20 08:21 Dose: 20 mg Documented by: Miscellaneous (Carbohydrates For Hypoglycemia ) 15 - 30 gm PO UD PRN PRN Reason: Hypoglycemia Protocol Stop: 02/21/20 21:30 Miscellaneous Information (Pharmacist Discharge Med Rec Consult) 1 ea N/A UD PRN PRN Reason: Consult Stop: 02/21/20 16:47 Nitroglycerin (Nitroglycerin Sl 0.4 Mg/Tab Tab) 0.4 mg SL UD PRN PRN Reason: Chest Pain Stop: 02/21/20 21:30 Tamsulosin HCl (Tamsulosin Hcl 0.4 Mg Cap) 0.4 mg PO HS [facility] Stop: 02/21/20 21:30 Last Admin: 01/23/20 20:48 Dose: 0.4 mg Documented by: Warfarin Sodium (Warfarin Sod 7.5 Mg Tab) 7.5 mg PO DAILY@1600 [facility] Stop: 02/23/20 15:59
[2020-01-24] MEDS: WARFARIN SOD 7.5 MG TAB PO SCH (15:30)
[2020-01-24] MEDS: TAMSULOSIN HCL 0.4 MG CAP PO SCH (21:25)
[2020-01-24] MEDS: ATORVASTATIN 40 MG TAB PO SCH (21:26)
--- NOTE | 2020-01-25 05:26 | Electrocardiogram Report ---
Test Reason : Blood Pressure : / mmHG Vent. Rate : 062 BPM Atrial Rate : 062 BPM P-R Int : 164 ms QRS Dur : 088 ms QT Int : 422 ms P-R-T Axes : 046 -10 127 degrees QTc Int : 428 ms Normal sinus rhythm Inferior infarct (cited on or before 13-OCT-2006) Anterolateral infarct (cited on or before 13-OCT-2006) Abnormal ECG When compared with ECG of 23-JAN-2020 07:22, No significant change was found Confirmed by Jose Raul Parker ([id number]) on 01/25/2020 5:26:01 AM Referred By: Dereck Zmaan Confirmed By:Jose Raul Parker
--- NOTE | 2020-01-25 08:32 | Cardiology Progress Note ---
Date of Service January 24, 2020 Assessment & Plan (1) Acute cerebrovascular accident: (2) Hematoma of left thigh: (3) H/O: CVA (cerebrovascular accident): (4) Osteomyelitis of great toe of right foot: (5) Coronary artery disease: Once again the patient has were counseled that there is no overt cardiac indication for anticoagulation. He carries no history of atrial fibrillation nor has any episodes been discovered with his recurrent strokes. Unfortunately, he has now had another stroke despite being on Eliquis. After lengthy discussion on the benefits, risks and alternatives with the patient his they both state that they would prefer to remain on chronic anticoagulation to help reduce further CVAs. Since he has been on Coumadin in the past they would prefer to switch back His also voiced strongly that she would like to have a home INR monitoring kit so they can keep a close eye on his INR given his history of hematoma. I will contact our [facility] clinic to see if this is possible. Otherwise, no other medication changes will be made today. No further cardiac testing is necessary. Given that he is in normal sinus rhythm I see no need to bridge him with the Coumadin. Okay to DC from a cardiac standpoint Admission and Anticipated Discharge Date Admission Date: January 22, 2020 Subjective Late entry for 01/24/20. Pt seen and examined, chart reviewed. Once again his is at the bedside. No events overnight. Denies any chest pain, shortness of breath, palpitations, lightheadedness, dizziness or syncope. Telemetry reviewed: Normal sinus rhythm without arrhythmia. Review of Systems Review of Systems: All systems reviewed & are unremarkable except as noted in HPI & below Physical Exam Physical Exam: General: Awake, alert and oriented x 3. No acute distress. HEENT: Normocephalic, atraumatic. Pupils equal, round and reactive to light and accommodation. Extraocular muscles are intact. Anicteric sclera. Moist mucous membranes. Neck: No JVD. No bruit. Cardiovascular: Regular. Positive S-4. Normal S-1 and S-2. No S-3. 3/6 mid to late systolic ejection murmur, greatest at the right sternal border, second intercostal space with radiation to the bilateral carotids. No rubs. Pulmonary: Clear to auscultation bilaterally. No rales, rhonchi, or wheezing. Abdomen: Bowel sounds x 4, soft. No rebound, guarding or tenderness. No organomegaly. Extremities: No clubbing, cyanosis or edema. +2 pedal pulses bilaterally. Skin: Warm and dry. Results & Data ([facility]) Vital Signs (Past 12 Hours) Vital Signs Temp Pulse Pulse Resp BP Pulse Ox 01/25/20 08:07 36.9 C 63 17 178/78 H 96 01/25/20 07:00 60 01/25/20 03:08 36.5 C 85 18 150/79 H 98 01/24/20 22:20 67 01/24/20 22:00 36.8 C 79 20 135/74 96 (1) Hematoma of left thigh Encounter type: initial encounter Qualified Code(s): S70.12XA - Contusion of left thigh, initial encounter
[2020-01-25 08:54] LABS: Basophils # (auto) 0.03 K/uL (0-0.2); Basophils % (auto) 0.5 %; Eosinophils # (auto) 0.21 K/uL (0-0.5); Eosinophils % (auto) 3.7 %; Hematocrit (blood only) 37.5 % (42-52); Hemoglobin 12.2 g/dL (14.0-18.0); Immature Granulocytes # (auto) 0.01 K/uL (0.00-0.02); Immature Granulocytes % (auto) 0.2 %; Lymphocytes # (auto) 1.57 K/uL (1.2-3.4); Lymphocytes % (auto) 27.4 %; Mean Corpuscular Hemoglobin 25.8 pg (25-34); Mean Corpuscular Hgb Conc 32.5 g/dL (32-36); Mean Corpuscular Volume 79.3 fL (80-100); Mean Platelet Volume 10.7 fL (7.4-10.4); Monocytes # (auto) 0.35 K/uL (0.11-0.59); Monocytes % (auto) 6.1 %; Neutrophils # (auto) 3.57 K/uL (1.4-6.5); Neutrophils % (auto) 62.1 %; Platelet Count 178 K/uL (130-400); RDW Coefficient of Variation 14.3 % (11.5-14.5); RDW Standard Deviation 41.1 fL (36.4-46.3); Red Blood Count 4.73 M/uL (4.7-6.1); White Blood Count 5.74 K/uL (4.8-10.8)
[2020-01-25 09:09] LABS: INR 1.1 (0.9-1.1)
[2020-01-25 09:10] LABS: BUN Creatinine Ratio 18.3 (10-20); Calcium 8.8 mg/dl (8.5-10.1); Creatinine Clr Calc Pharmacy 95.7 ml/min; Est GFR (African American) 99.7; Est GFR (Non-African American) 86.1; Magnesium 1.8 mg/dl (1.8-2.4); Potassium 4.3 mmol/L (3.5-5.1)
[2020-01-25] MEDS: INSULIN ASPART 100 UNITS/ML 3 ML PEN SC SCH ×4 (09:10→20:32)
[2020-01-25] MEDS: ASPIRIN 81 MG ECTAB PO SCH (09:11)
[2020-01-25] MEDS: CLOPIDOGREL BISULFATE 75 MG TAB PO SCH (09:11)
[2020-01-25] MEDS: carvediloL 12.5 MG TAB PO SCH ×2 (09:11→20:33)
[2020-01-25] MEDS: INSULIN GLARGINE SOLOSTAR 100 UNITS/ML 3 ML PEN SC SCH ×2 (09:12→20:32)
[2020-01-25] MEDS: CLINDAMYCIN HCL 150 MG CAP PO SCH ×3 (09:12→20:33)
[2020-01-25] MEDS: BACLOFEN 10 MG TAB PO SCH (09:25)
--- NOTE | 2020-01-25 14:48 | Hospitalist Progress Note ---
Date of Service January 25, 2020 Assessment & Plan (1) Acute cerebrovascular accident: Has been complaining of right upper extremity stiffness and weakness involving right upper and lower extremities for the last 2 to 3 days History of prior CVA with right hemiparesis and paroxysmal atrial fibrillation He is compliant with Eliquis therapy and is on ASA and Plavix for secondary prophylaxis of stroke. No other associated neuro deficit on examination MRI of the brain showed-1. Interval development of a small focus of restricted water diffusion at the level the right frontoparietal parafalcine junction, consistent with a small acute/subacute infarct 2. Moderately extensive white matter disease, and multiple old bilateral lacunar infarcts 3. No MRI evidence of acute hemorrhage. Appreciate neurology input and recommendation; advised to try Coumadin instead of Eliquis Appreciate figure skater initiation to restart Coumadin after discussion with the patient and the Coumadin has been started from today the dose of 7.5 mg no bridging will be required as per the figure skater to decrease the risk of bleeding He will be staying in the hospital being very high risk patient Will continue with aspirin and Plavix as before Remains stable and awaiting therapeutic INR (2) H/O: CVA (cerebrovascular accident): Cont ASA, Plavix and Elliquis. Allow permissive HTN--notify physician if BP rises above 220/120. (3) Type 2 diabetes mellitus: Hold home medications and cont treating him with basal/bolus insulin while admitted. SSI while in the hospital (4) HTN (hypertension): Allow permissive HTN for two days. Permissive hypertension Hold amlodipine and prinivil. We will continue carvedilol to keep heart in sinus rhythm Remains upper side but systolic below 180 (5) Hypomagnesemia: replace and repeat in am Magnesium is 2.1 as of 01/22/2020. (6) Osteomyelitis of great toe of right foot: Continue prophylactic clindamycin. No symptoms (7) Aortic stenosis, severe: Known issue. Low salt diet. Continue to monitor. Appreciate cardiology input and recommendation Denies any symptoms (8) Increased urinary frequency: IPSS score was 8 on prior hospitalization and he was started on Flomax. this was not continued or given at [facility]. Will restart this now and have him seen by Urology with persistent increased frequency of urination. Discussed with urologist He will have an outpatient appointment on discharge (9) Coronary artery disease: Denies any SOB or chest pain at this time. Appears stable disease. Cont medical management including ASA, Coreg, Lipitor, Plavix. Has abnormal EKG consistent with inferior and anterolateral infarct which have been there is a chronic finding No acute cardiac symptoms (10) DVT prophylaxis: Eliquis has been discontinued and Coumadin has been restarted as of 01/24/2020 Full Code Dispo-to telemetry Discussed with the in detail Likely discharge on Tuesday//Tuesday Admission and Anticipated Discharge Date Admission Date: January 22, 2020 Subjective 01/23/2020 The patient was seen and examined in medical telemetry unit He is a 59-year-old male with significant past medical history including paroxysmal atrial fibrillation on Eliquis with history of CVA and right hemiparesis in the past. He was admitted yesterday with another stroke. Complains to have little more right upper extremity stiffness and weakness and to some extent right lower extremity weakness as well Denies any other neurological symptoms Denies any chest pain, palpitation, shortness of breath, any abdominal pain, nausea and/or vomiting 01/24/2020 The patient was seen and examined in medical telemetry unit in presence of the He denies any new symptoms and weakness and stiffness involving the right side extremities have been improving He is willing to try Coumadin in place of Eliquis and that was discussed extensively between the patient, the and the figure skater 01/25/2020 The patient was seen and examined in medical telemetry unit in presence of the He remains stable He is INR is not yet therapeutic We will continue physical therapy Review of Systems Review of Systems: All systems reviewed and are unremarkable except as noted below Neurologic: + paralysis (Partial paralysis involving the right side extremities) and + abnormal speech (Chronic but communicative); no numbness Physical Exam Physical Exam: Lying in bed comfortably Constitutional: well developed, well nourished, + acute distress (Minimal discomfort due to right upper extremity with stiffness) and + ill appearing Eyes: PERRL, conjunctivae normal, anicteric sclerae ENMT: external ear and nose normal, oropharynx normal Neck: trachea midline, no thyromegaly Respiratory: normal respiratory effort; no respiratory distress Auscultation: lungs clear to auscultation bilaterally Cardiovascular: Rate/Rhythm: regular rate and regular rhythm Heart Sounds: + murmur (2/6 ESM over precordium) Extremities: no edema Gastrointestinal (Abdomen): Inspection/Auscultation: abdomen normal to inspection and normal bowel sounds; abdomen not distended Percussion/Palpation: abdomen soft; abdomen nontender Neurologic: moves all extremities and + focal motor deficit (Right-sided extremities are weaker than the left, no sensory abnormality) Speech / Cognition: + abnormal speech (Residual speech abnormality from prior stroke) Motor/Sensory: no tremor Spasm and weakness of the right sided extremities have been improving Lymphatic: no cervical or axillary lymphadenopathy Results & Data Results & Data ([facility]) Vital Signs (Past 12 Hours) Vital Signs Temp Pulse Pulse Resp BP Pulse Ox 01/25/20 08:07 36.9 C 63 17 178/78 H 96 01/25/20 07:00 60 01/25/20 03:08 36.5 C 85 18 150/79 H 98 Laboratory Results Short CBC 01/25/20 Range/Units 08:23 WBC 5.74 (4.8-10.8) K/uL Hgb 12.2 L (14.0-18.0) g/dL Hct 37.5 L (42-52) % Plt Count 178 (130-400) K/uL BMP 01/25/20 08:23 Sodium 139 Potassium 4.3 Chloride 107 Carbon Dioxide 25 BUN 17 Creatinine 0.95 Glucose 240 H Calcium 8.8 Medications Administered Current Inpatient Medications Acetaminophen (Acetaminophen 325 Mg Tab) 650 mg PO Q4H PRN PRN Reason: Pain or Fever Stop: 02/21/20 21:30 Aspirin (Aspirin 81 Mg Ectab) 81 mg PO QAM [facility] Stop: 02/22/20 08:59 Last Admin: 01/25/20 09:11 Dose: 81 mg Documented by: Atorvastatin Calcium (Atorvastatin 40 Mg Tab) 80 mg PO QPM [facility] Stop: 02/21/20 21:30 Last Admin: 01/24/20 21:26 Dose: 80 mg Documented by: Baclofen (Baclofen 10 Mg Tab) 5 mg PO QAM [facility] Stop: 02/22/20 08:59 Last Admin: 01/25/20 09:25 Dose: 5 mg Documented by: Carvedilol (Carvedilol 12.5 Mg Tab) 12.5 mg PO BID [facility] Stop: 02/21/20 21:30 Last Admin: 01/25/20 09:11 Dose: 12.5 mg Documented by: Clindamycin HCl (Clindamycin Hcl 150 Mg Cap) 300 mg PO TID [facility] Stop: 02/21/20 21:30 Last Admin: 01/25/20 14:38 Dose: 300 mg Documented by: Clopidogrel Bisulfate (Clopidogrel Bisulfate 75 Mg Tab) 75 mg PO QAM [facility] Stop: 02/22/20 08:59 Last Admin: 01/25/20 09:11 Dose: 75 mg Documented by: Dextrose (Dextrose 50% 50 Ml Syringe) 25 - 50 ml IV UD PRN; Protocol PRN Reason: Hypoglycemia Protocol Stop: 02/21/20 21:30 Glucagon (Glucagon For Inj 1 Mg Vial) 1 mg SQ UD PRN; Protocol PRN Reason: Hypoglycemia Protocol Stop: 02/21/20 21:30 Glucose (Glucose 10 Tabs/Tube) 4 - 8 tabs PO UD PRN; Protocol PRN Reason: Hypoglycemia Protocol Stop: 02/21/20 21:30 Glucose (Glucose 40% Gel 15 Gm Tube) 15 - 30 gm PO UD PRN; Protocol PRN Reason: Hypoglycemia Protocol Stop: 02/21/20 21:30 Insulin Aspart (Insulin Aspart 100 Units/Ml 3 Ml Pen) 0 units SC ACHS [facility] Stop: 02/21/20 21:30 Last Admin: 01/25/20 12:20 Dose: 9 units Documented by: Insulin Glargine (Insulin Glargine Solostar 100 Units/Ml 3 Ml Pen) 10 units SC BID [facility] Stop: 02/21/20 21:30 Last Admin: 01/25/20 09:12 Dose: 10 units Documented by: Lisinopril (Lisinopril 20 Mg Tab) 20 mg PO QAM [facility] Stop: 02/22/20 08:59 Last Admin: 01/23/20 08:21 Dose: 20 mg Documented by: Miscellaneous (Carbohydrates For Hypoglycemia ) 15 - 30 gm PO UD PRN PRN Reason: Hypoglycemia Protocol Stop: 02/21/20 21:30 Miscellaneous Information (Pharmacist Discharge Med Rec Consult) 1 ea N/A UD PRN PRN Reason: Consult Stop: 02/21/20 16:47 Nitroglycerin (Nitroglycerin Sl 0.4 Mg/Tab Tab) 0.4 mg SL UD PRN PRN Reason: Chest Pain Stop: 02/21/20 21:30 Tamsulosin HCl (Tamsulosin Hcl 0.4 Mg Cap) 0.4 mg PO HS [facility] Stop: 02/21/20 21:30 Last Admin: 01/24/20 21:25 Dose: 0.4 mg Documented by: Warfarin Sodium (Warfarin Sod 7.5 Mg Tab) 7.5 mg PO DAILY@1600 [facility] Stop: 02/23/20 15:59 Last Admin: 01/24/20 15:30 Dose: 7.5 mg Documented by:
[2020-01-25] MEDS: WARFARIN SOD 7.5 MG TAB PO SCH (17:13)
[2020-01-25] MEDS: ATORVASTATIN 40 MG TAB PO SCH (20:33)
[2020-01-25] MEDS: TAMSULOSIN HCL 0.4 MG CAP PO SCH (20:33)
[2020-01-26 08:18] LABS: INR 1.3 (0.9-1.1); Prothrombin Time 13.8 Seconds (9.0-12.0)
[2020-01-26] MEDS: CLOPIDOGREL BISULFATE 75 MG TAB PO SCH (08:41)
[2020-01-26] MEDS: ASPIRIN 81 MG ECTAB PO SCH (08:41)
[2020-01-26] MEDS: carvediloL 12.5 MG TAB PO SCH ×2 (08:42→21:14)
[2020-01-26] MEDS: CLINDAMYCIN HCL 150 MG CAP PO SCH ×3 (08:42→21:13)
[2020-01-26] MEDS: BACLOFEN 10 MG TAB PO SCH (08:44)
[2020-01-26] MEDS: INSULIN ASPART 100 UNITS/ML 3 ML PEN SC SCH ×4 (08:45→21:12)
[2020-01-26] MEDS: INSULIN GLARGINE SOLOSTAR 100 UNITS/ML 3 ML PEN SC SCH ×2 (08:45→21:13)
--- NOTE | 2020-01-26 14:21 | Hospitalist Progress Note ---
Date of Service January 26, 2020 Assessment & Plan (1) Acute cerebrovascular accident: Has been complaining of right upper extremity stiffness and weakness involving right upper and lower extremities for the last 2 to 3 days History of prior CVA with right hemiparesis and paroxysmal atrial fibrillation He is compliant with Eliquis therapy and is on ASA and Plavix for secondary prophylaxis of stroke. No other associated neuro deficit on examination MRI of the brain showed-1. Interval development of a small focus of restricted water diffusion at the level the right frontoparietal parafalcine junction, consistent with a small acute/subacute infarct 2. Moderately extensive white matter disease, and multiple old bilateral lacunar infarcts 3. No MRI evidence of acute hemorrhage. Appreciate neurology input and recommendation; advised to try Coumadin instead of Eliquis Appreciate riding teacher initiation to restart Coumadin after discussion with the patient and the Coumadin has been started from today the dose of 7.5 mg no bridging will be required as per the riding teacher to decrease the risk of bleeding He will be staying in the hospital being very high risk patient Will continue with aspirin and Plavix as before Remains stable and awaiting therapeutic INR INR is 1.3 today (2) H/O: CVA (cerebrovascular accident): Cont ASA, Plavix and Elliquis. Allow permissive HTN--notify physician if BP rises above 220/120. We will continue PT and OT while in the hospital (3) Type 2 diabetes mellitus: Hold home medications and cont treating him with basal/bolus insulin while admitted. SSI while in the hospital (4) HTN (hypertension): Allow permissive HTN for two days. Permissive hypertension Hold amlodipine and prinivil. We will continue carvedilol to keep heart in sinus rhythm Remains upper side but systolic below 180 Blood pressure remains stable and on the upper side (5) Hypomagnesemia: replace and repeat in am Magnesium is 2.1 as of 01/22/2020. (6) Osteomyelitis of great toe of right foot: Continue prophylactic clindamycin. No symptoms (7) Aortic stenosis, severe: Known issue. Low salt diet. Continue to monitor. Appreciate cardiology input and recommendation Denies any symptoms (8) Increased urinary frequency: IPSS score was 8 on prior hospitalization and he was started on Flomax. this was not continued or given at discharge [facility] recently. Will restart this now and have him seen by Urology with persistent increased frequency of urination. Discussed with urologist He will have an outpatient appointment on discharge (9) Coronary artery disease: Denies any SOB or chest pain at this time. Appears stable disease. Cont medical management including ASA, Coreg, Lipitor, Plavix. Has abnormal EKG consistent with inferior and anterolateral infarct which have been there is a chronic finding No acute cardiac symptoms (10) DVT prophylaxis: Eliquis has been discontinued and Coumadin has been restarted as of 01/24/2020 Full Code Dispo-to telemetry Discussed with the in detail Likely discharge on Tuesday//Tuesday Admission and Anticipated Discharge Date Admission Date: January 22, 2020 Subjective 01/23/2020 The patient was seen and examined in medical telemetry unit He is a 59-year-old male with significant past medical history including paroxysmal atrial fibrillation on Eliquis with history of CVA and right hemiparesis in the past. He was admitted yesterday with another stroke. Complains to have little more right upper extremity stiffness and weakness and to some extent right lower extremity weakness as well Denies any other neurological symptoms Denies any chest pain, palpitation, shortness of breath, any abdominal pain, nausea and/or vomiting 01/24/2020 The patient was seen and examined in medical telemetry unit in presence of the He denies any new symptoms and weakness and stiffness involving the right side extremities have been improving He is willing to try Coumadin in place of Eliquis and that was discussed extensively between the patient, the and the riding teacher 01/25/2020 The patient was seen and examined in medical telemetry unit in presence of the He remains stable He is INR is not yet therapeutic We will continue physical therapy 01/26/2020 Patient was seen and examined in medical telemetry unit He remains stable He is right-sided weakness has been improving Review of Systems Review of Systems: All systems reviewed and are unremarkable except as noted below Neurologic: + paralysis (Partial paralysis involving the right side extremities) and + abnormal speech (Chronic but communicative); no numbness Physical Exam Physical Exam: Sitting on a chair without any acute distress Constitutional: well developed, well nourished, + acute distress (Minimal discomfort due to right upper extremity with stiffness) and + ill appearing Eyes: PERRL, conjunctivae normal, anicteric sclerae ENMT: external ear and nose normal, oropharynx normal Neck: trachea midline, no thyromegaly Respiratory: normal respiratory effort; no respiratory distress Auscultation: lungs clear to auscultation bilaterally Cardiovascular: Rate/Rhythm: regular rate and regular rhythm Heart Sounds: + murmur (2/6 ESM over precordium) Extremities: no edema Gastrointestinal (Abdomen): Inspection/Auscultation: abdomen normal to inspection and normal bowel sounds; abdomen not distended Percussion/Palpation: abdomen soft; abdomen nontender Musculoskeletal: No acute arthritis involving any joints Neurologic: moves all extremities and + focal motor deficit (Right-sided extremities are weaker than the left, no sensory abnormality) Speech / Cognition: + abnormal speech (Residual speech abnormality from prior stroke) Motor/Sensory: no tremor Right sided extremities stiffness and weakness are slightly better Lymphatic: no cervical or axillary lymphadenopathy Results & Data Results & Data ([facility]) Vital Signs (Past 12 Hours) Vital Signs Temp Pulse Pulse Resp BP Pulse Ox 01/26/20 12:33 36.4 C L 69 17 159/87 H 96 01/26/20 08:40 71 01/26/20 07:30 36.7 C 62 18 146/74 H 95 01/26/20 04:19 36.6 C 62 18 155/74 H 97
[2020-01-26] MEDS: WARFARIN SOD 7.5 MG TAB PO SCH (16:05)
[2020-01-26] MEDS: ATORVASTATIN 40 MG TAB PO SCH (21:14)
[2020-01-26] MEDS: TAMSULOSIN HCL 0.4 MG CAP PO SCH (21:14)
[2020-01-27 07:27] LABS: INR 1.7 (0.9-1.1); Prothrombin Time 17.8 Seconds (9.0-12.0)
[2020-01-27] MEDS: CLOPIDOGREL BISULFATE 75 MG TAB PO SCH (08:33)
[2020-01-27] MEDS: ASPIRIN 81 MG ECTAB PO SCH (08:33)
[2020-01-27] MEDS: CLINDAMYCIN HCL 150 MG CAP PO SCH ×3 (08:33→22:22)
[2020-01-27] MEDS: carvediloL 12.5 MG TAB PO SCH ×2 (08:34→18:21)
[2020-01-27] MEDS: BACLOFEN 10 MG TAB PO SCH (08:35)
[2020-01-27] MEDS: INSULIN GLARGINE SOLOSTAR 100 UNITS/ML 3 ML PEN SC SCH ×2 (08:36→22:21)
[2020-01-27] MEDS: INSULIN ASPART 100 UNITS/ML 3 ML PEN SC SCH ×4 (08:36→22:21)
--- NOTE | 2020-01-27 12:50 | Hospitalist Progress Note ---
Date of Service January 27, 2020 Assessment & Plan (1) Acute cerebrovascular accident: Has been complaining of right upper extremity stiffness and weakness involving right upper and lower extremities for the last 2 to 3 days History of prior CVA with right hemiparesis and paroxysmal atrial fibrillation He is compliant with Eliquis therapy and is on ASA and Plavix for secondary prophylaxis of stroke. No other associated neuro deficit on examination MRI of the brain showed-1. Interval development of a small focus of restricted water diffusion at the level the right frontoparietal parafalcine junction, consistent with a small acute/subacute infarct 2. Moderately extensive white matter disease, and multiple old bilateral lacunar infarcts 3. No MRI evidence of acute hemorrhage. Appreciate neurology input and recommendation; advised to try Coumadin instead of Eliquis Appreciate boiler house inspector initiation to restart Coumadin after discussion with the patient and the Coumadin has been started from today the dose of 7.5 mg no bridging will be required as per the boiler house inspector to decrease the risk of bleeding He will be staying in the hospital being very high risk patient Will continue with aspirin and Plavix as before Remains stable and awaiting therapeutic INR INR is 1.7 today Likely discharge tomorrow to [facility] (2) H/O: CVA (cerebrovascular accident): Cont ASA, Plavix and Elliquis. Allow permissive HTN--notify physician if BP rises above 220/120. We will continue PT and OT while in the hospital Getting minimal improvement with physical therapy (3) Type 2 diabetes mellitus: Hold home medications and cont treating him with basal/bolus insulin while admitted. SSI while in the hospital (4) HTN (hypertension): Allow permissive HTN for two days. Permissive hypertension Hold amlodipine and prinivil. We will continue carvedilol to keep heart in sinus rhythm Remains upper side but systolic below 180 Blood pressure is well controlled (5) Hypomagnesemia: replace and repeat in am Magnesium is 2.1 as of 01/22/2020. (6) Osteomyelitis of great toe of right foot: Continue prophylactic clindamycin. No symptoms (7) Aortic stenosis, severe: Known issue. Low salt diet. Continue to monitor. Appreciate cardiology input and recommendation Denies any symptoms (8) Increased urinary frequency: IPSS score was 8 on prior hospitalization and he was started on Flomax. this was not continued or given at discharge from [facility] stay recently. Will restart this now and have him seen by Urology with persistent increased frequency of urination. Discussed with urologist He will have an outpatient appointment on discharge (9) Coronary artery disease: Denies any SOB or chest pain at this time. Appears stable disease. Cont medical management including ASA, Coreg, Lipitor, Plavix. Has abnormal EKG consistent with inferior and anterolateral infarct which have been there is a chronic finding No acute cardiac symptoms (10) DVT prophylaxis: Eliquis has been discontinued and Coumadin has been restarted as of 01/24/2020 Full Code Dispo-to telemetry Discussed with the in detail Discharge tomorrow to [facility] Admission and Anticipated Discharge Date Admission Date: January 22, 2020 Subjective 01/23/2020 The patient was seen and examined in medical telemetry unit He is a 59-year-old male with significant past medical history including paroxysmal atrial fibrillation on Eliquis with history of CVA and right hemiparesis in the past. He was admitted yesterday with another stroke. Complains to have little more right upper extremity stiffness and weakness and to some extent right lower extremity weakness as well Denies any other neurological symptoms Denies any chest pain, palpitation, shortness of breath, any abdominal pain, nausea and/or vomiting 01/24/2020 The patient was seen and examined in medical telemetry unit in presence of the He denies any new symptoms and weakness and stiffness involving the right side extremities have been improving He is willing to try Coumadin in place of Eliquis and that was discussed extensively between the patient, the and the boiler house inspector 01/25/2020 The patient was seen and examined in medical telemetry unit in presence of the He remains stable He is INR is not yet therapeutic We will continue physical therapy 01/26/2020 Patient was seen and examined in medical telemetry unit He remains stable He is right-sided weakness has been improving 01/27/2020 Patient was seen and examined in medical telemetry unit He remains stable and is right hemiparesis has been improving Denies any other symptoms Review of Systems Review of Systems: All systems reviewed and are unremarkable except as noted below Neurologic: + paralysis (Partial paralysis involving the right side extremities) and + abnormal speech (Chronic but communicative); no numbness Physical Exam Physical Exam: Sitting on a chair without any acute distress Constitutional: well developed, well nourished, + acute distress (Minimal discomfort due to right upper extremity with stiffness) and + ill appearing Eyes: PERRL, conjunctivae normal, anicteric sclerae ENMT: external ear and nose normal, oropharynx normal Neck: trachea midline, no thyromegaly Respiratory: normal respiratory effort; no respiratory distress Auscultation: lungs clear to auscultation bilaterally Cardiovascular: Rate/Rhythm: regular rate and regular rhythm Heart Sounds: + murmur (2/6 ESM over precordium) Extremities: no edema Gastrointestinal (Abdomen): Inspection/Auscultation: abdomen normal to inspection and normal bowel sounds; abdomen not distended Percussion/Palpation: abdomen soft; abdomen nontender Neurologic: moves all extremities and + focal motor deficit (Right-sided extremities are weaker than the left, no sensory abnormality) Speech / Cognition: + abnormal speech (Residual speech abnormality from prior stroke) Motor/Sensory: no tremor Lymphatic: no cervical or axillary lymphadenopathy Results & Data Results & Data ([facility]) Vital Signs (Past 12 Hours) Vital Signs Temp Pulse Pulse Resp BP Pulse Ox 01/27/20 12:33 36.5 C 72 18 129/70 98 01/27/20 10:10 56 L 01/27/20 07:37 36.4 C L 54 L 17 114/71 90 01/27/20 04:41 36.6 C 71 18 157/80 H 95 Medications Administered Current Inpatient Medications Acetaminophen (Acetaminophen 325 Mg Tab) 650 mg PO Q4H PRN PRN Reason: Pain or Fever Stop: 02/21/20 21:30 Aspirin (Aspirin 81 Mg Ectab) 81 mg PO QAM [facility] Stop: 02/22/20 08:59 Last Admin: 01/27/20 08:33 Dose: 81 mg Documented by: Atorvastatin Calcium (Atorvastatin 40 Mg Tab) 80 mg PO QPM [facility] Stop: 02/21/20 21:30 Last Admin: 01/26/20 21:14 Dose: 80 mg Documented by: Baclofen (Baclofen 10 Mg Tab) 5 mg PO QAM [facility] Stop: 02/22/20 08:59 Last Admin: 01/27/20 08:35 Dose: 5 mg Documented by: Carvedilol (Carvedilol 12.5 Mg Tab) 12.5 mg PO BID [facility] Stop: 02/21/20 21:30 Last Admin: 01/27/20 08:34 Dose: 12.5 mg Documented by: Clindamycin HCl (Clindamycin Hcl 150 Mg Cap) 300 mg PO TID [facility] Stop: 02/21/20 21:30 Last Admin: 01/27/20 08:33 Dose: 300 mg Documented by: Clopidogrel Bisulfate (Clopidogrel Bisulfate 75 Mg Tab) 75 mg PO QAM [facility] Stop: 02/22/20 08:59 Last Admin: 01/27/20 08:33 Dose: 75 mg Documented by: Dextrose (Dextrose 50% 50 Ml Syringe) 25 - 50 ml IV UD PRN; Protocol PRN Reason: Hypoglycemia Protocol Stop: 02/21/20 21:30 Glucagon (Glucagon For Inj 1 Mg Vial) 1 mg SQ UD PRN; Protocol PRN Reason: Hypoglycemia Protocol Stop: 02/21/20 21:30 Glucose (Glucose 10 Tabs/Tube) 4 - 8 tabs PO UD PRN; Protocol PRN Reason: Hypoglycemia Protocol Stop: 02/21/20 21:30 Glucose (Glucose 40% Gel 15 Gm Tube) 15 - 30 gm PO UD PRN; Protocol PRN Reason: Hypoglycemia Protocol Stop: 02/21/20 21:30 Insulin Aspart (Insulin Aspart 100 Units/Ml 3 Ml Pen) 0 units SC ACHS [facility] Stop: 02/21/20 21:30 Last Admin: 01/27/20 12:33 Dose: 8 units Documented by: Insulin Glargine (Insulin Glargine Solostar 100 Units/Ml 3 Ml Pen) 10 units SC BID [facility] Stop: 02/21/20 21:30 Last Admin: 01/27/20 08:36 Dose: 10 units Documented by: Lisinopril (Lisinopril 20 Mg Tab) 20 mg PO QAM [facility] Stop: 02/22/20 08:59 Last Admin: 01/23/20 08:21 Dose: 20 mg Documented by: Miscellaneous (Carbohydrates For Hypoglycemia ) 15 - 30 gm PO UD PRN PRN Reason: Hypoglycemia Protocol Stop: 02/21/20 21:30 Miscellaneous Information (Pharmacist Discharge Med Rec Consult) 1 ea N/A UD PRN PRN Reason: Consult Stop: 02/21/20 16:47 Nitroglycerin (Nitroglycerin Sl 0.4 Mg/Tab Tab) 0.4 mg SL UD PRN PRN Reason: Chest Pain Stop: 02/21/20 21:30 Tamsulosin HCl (Tamsulosin Hcl 0.4 Mg Cap) 0.4 mg PO HS [facility] Stop: 02/21/20 21:30 Last Admin: 01/26/20 21:14 Dose: 0.4 mg Documented by: Warfarin Sodium (Warfarin Sod 7.5 Mg Tab) 7.5 mg PO DAILY@1600 [facility] Stop: 02/23/20 15:59 Last Admin: 01/26/20 16:05 Dose: 7.5 mg Documented by:
[2020-01-27] MEDS: WARFARIN SOD 7.5 MG TAB PO SCH (16:38)
[2020-01-27] MEDS ORDERED: lisinopriL 10 MG TAB PO STA (17:10)
[2020-01-27] MEDS: TAMSULOSIN HCL 0.4 MG CAP PO SCH (22:23)
[2020-01-27] MEDS: ATORVASTATIN 40 MG TAB PO SCH (22:23)
[2020-01-28 08:39] LABS: Basophils # (auto) 0.02 K/uL (0-0.2); Basophils % (auto) 0.4 %; Eosinophils # (auto) 0.23 K/uL (0-0.5); Eosinophils % (auto) 4.1 %; Hematocrit (blood only) 38.6 % (42-52); Hemoglobin 12.3 g/dL (14.0-18.0); Immature Granulocytes # (auto) 0.01 K/uL (0.00-0.02); Immature Granulocytes % (auto) 0.2 %; Lymphocytes # (auto) 1.76 K/uL (1.2-3.4); Lymphocytes % (auto) 31.1 %; Mean Corpuscular Hemoglobin 25.6 pg (25-34); Mean Corpuscular Hgb Conc 31.9 g/dL (32-36); Mean Corpuscular Volume 80.4 fL (80-100); Mean Platelet Volume 10.4 fL (7.4-10.4); Monocytes # (auto) 0.37 K/uL (0.11-0.59); Monocytes % (auto) 6.5 %; Neutrophils # (auto) 3.27 K/uL (1.4-6.5); Neutrophils % (auto) 57.7 %; Platelet Count 229 K/uL (130-400); RDW Coefficient of Variation 14.4 % (11.5-14.5); RDW Standard Deviation 42.4 fL (36.4-46.3); White Blood Count 5.66 K/uL (4.8-10.8)
[2020-01-28] MEDS: CLINDAMYCIN HCL 150 MG CAP PO SCH ×3 (08:42→20:14)
[2020-01-28] MEDS: carvediloL 12.5 MG TAB PO SCH ×2 (08:42→20:13)
[2020-01-28] MEDS: INSULIN ASPART 100 UNITS/ML 3 ML PEN SC SCH ×4 (08:43→20:17)
[2020-01-28 08:44] LABS: INR 2.2 (0.9-1.1); Prothrombin Time 22.4 Seconds (9.0-12.0)
[2020-01-28] MEDS: BACLOFEN 10 MG TAB PO SCH (08:52)
[2020-01-28] MEDS: CLOPIDOGREL BISULFATE 75 MG TAB PO SCH (08:52)
[2020-01-28] MEDS: ASPIRIN 81 MG ECTAB PO SCH (08:52)
[2020-01-28] MEDS: INSULIN GLARGINE SOLOSTAR 100 UNITS/ML 3 ML PEN SC SCH ×2 (08:53→20:15)
[2020-01-28 09:08] LABS: Calcium 8.9 mg/dl (8.5-10.1); Creatinine Clr Calc Pharmacy 111.6 ml/min; Est GFR (African American) 115.4; Est GFR (Non-African American) 99.6; Potassium 3.9 mmol/L (3.5-5.1)
[2020-01-28] MEDS ORDERED: lisinopriL 20 MG TAB PO STA (10:40)
--- NOTE | 2020-01-28 13:28 | Hospitalist Progress Note ---
Date of Service January 28, 2020 Assessment & Plan (1) Acute cerebrovascular accident: Has been complaining of right upper extremity stiffness and weakness involving right upper and lower extremities for the last 2 to 3 days History of prior CVA with right hemiparesis and paroxysmal atrial fibrillation He is compliant with Eliquis therapy and is on ASA and Plavix for secondary prophylaxis of stroke. No other associated neuro deficit on examination MRI of the brain showed-1. Interval development of a small focus of restricted water diffusion at the level the right frontoparietal parafalcine junction, consistent with a small acute/subacute infarct 2. Moderately extensive white matter disease, and multiple old bilateral lacunar infarcts 3. No MRI evidence of acute hemorrhage. Appreciate neurology input and recommendation; advised to try Coumadin instead of Eliquis Appreciate oncology technician initiation to restart Coumadin after discussion with the patient and the Coumadin has been started from today the dose of 7.5 mg no bridging will be required as per the oncology technician to decrease the risk of bleeding He will be staying in the hospital being very high risk patient Will continue with aspirin and Plavix as before Remains stable and awaiting therapeutic INR INR is 2.2 today Remains medically stable to be discharged to [facility] today (2) H/O: CVA (cerebrovascular accident): Cont ASA, Plavix and Elliquis. Allow permissive HTN--notify physician if BP rises above 220/120. We will continue PT and OT while in the hospital Getting minimal improvement with physical therapy Feels that right hemiparesis has been improving (3) Type 2 diabetes mellitus: Hold home medications and cont treating him with basal/bolus insulin while admitted. SSI while in the hospital (4) HTN (hypertension): Allow permissive HTN for two days. Permissive hypertension Hold amlodipine and prinivil. We will continue carvedilol to keep heart in sinus rhythm Remains upper side but systolic below 180 Blood pressure noted to be high this morning and also last evening Got 10 mg of lisinopril last evening and will continue with 20 mg as his home dose from this morning (5) Hypomagnesemia: replace and repeat in am Magnesium is 2.1 as of 01/22/2020. (6) Osteomyelitis of great toe of right foot: Continue prophylactic clindamycin. No symptoms (7) Aortic stenosis, severe: Known issue. Low salt diet. Continue to monitor. Appreciate cardiology input and recommendation Denies any symptoms (8) Increased urinary frequency: IPSS score was 8 on prior hospitalization and he was started on Flomax. this was not continued or given at discharge from [facility] stay recently. Will restart this now and have him seen by Urology with persistent increased frequency of urination. Discussed with urologist He will have an outpatient appointment on discharge (9) Coronary artery disease: Denies any SOB or chest pain at this time. Appears stable disease. Cont medical management including ASA, Coreg, Lipitor, Plavix. Has abnormal EKG consistent with inferior and anterolateral infarct which have been there is a chronic finding No acute cardiac symptoms (10) DVT prophylaxis: Eliquis has been discontinued and Coumadin has been restarted as of 01/24/2020 Full Code Dispo-to telemetry Discussed with the in detail Discharge to [facility] this afternoon Admission and Anticipated Discharge Date Admission Date: January 22, 2020 Subjective 01/23/2020 The patient was seen and examined in medical telemetry unit He is a 59-year-old male with significant past medical history including paroxysmal atrial fibrillation on Eliquis with history of CVA and right hemiparesis in the past. He was admitted yesterday with another stroke. Complains to have little more right upper extremity stiffness and weakness and to some extent right lower extremity weakness as well Denies any other neurological symptoms Denies any chest pain, palpitation, shortness of breath, any abdominal pain, nausea and/or vomiting 01/24/2020 The patient was seen and examined in medical telemetry unit in presence of the He denies any new symptoms and weakness and stiffness involving the right side extremities have been improving He is willing to try Coumadin in place of Eliquis and that was discussed extensively between the patient, the and the oncology technician 01/25/2020 The patient was seen and examined in medical telemetry unit in presence of the He remains stable He is INR is not yet therapeutic We will continue physical therapy 01/26/2020 Patient was seen and examined in medical telemetry unit He remains stable He is right-sided weakness has been improving 01/27/2020 Patient was seen and examined in medical telemetry unit He remains stable and is right hemiparesis has been improving Denies any other symptoms 01/28/2020 The patient was seen and examined in the medical telemetry unit He remains stable Blood pressure has been noted to be high and his home medications have been restarted Denies any new symptoms Review of Systems Review of Systems: All systems reviewed and are unremarkable except as noted below Neurologic: + paralysis (Partial paralysis involving the right side extremities) and + abnormal speech (Chronic but communicative); no numbness Physical Exam Physical Exam: Sitting on a chair without any acute distress Constitutional: well developed, well nourished, + acute distress (Minimal discomfort due to right upper extremity with stiffness) and + ill appearing Eyes: PERRL, conjunctivae normal, anicteric sclerae ENMT: external ear and nose normal, oropharynx normal Neck: trachea midline, no thyromegaly Respiratory: normal respiratory effort; no respiratory distress Auscultation: lungs clear to auscultation bilaterally Cardiovascular: Rate/Rhythm: regular rate and regular rhythm Heart Sounds: + murmur (2/6 ESM over precordium) Extremities: no edema Gastrointestinal (Abdomen): Inspection/Auscultation: abdomen normal to inspection and normal bowel sounds; abdomen not distended Percussion/Palpation: abdomen soft; abdomen nontender Musculoskeletal: No acute arthritis involving any joints Neurologic: moves all extremities and + focal motor deficit (Right-sided extremities are weaker than the left, no sensory abnormality) Speech / Cognition: + abnormal speech (Residual speech abnormality from prior stroke) Motor/Sensory: no tremor Lymphatic: no cervical or axillary lymphadenopathy Results & Data Results & Data ([facility]) Vital Signs (Past 12 Hours) Vital Signs Temp Pulse Pulse Resp BP Pulse Ox 01/28/20 10:53 60 01/28/20 07:16 36.6 C 62 18 187/77 H 96 01/28/20 04:27 36.5 C 63 18 162/80 H 99 Laboratory Results Short CBC 01/28/20 Range/Units 07:45 WBC 5.66 (4.8-10.8) K/uL Hgb 12.3 L (14.0-18.0) g/dL Hct 38.6 L (42-52) % Plt Count 229 (130-400) K/uL BMP 01/28/20 07:45 Sodium 140 Potassium 3.9 Chloride 107 Carbon Dioxide 27 BUN 18 Creatinine 0.74 Glucose 195 H Calcium 8.9 Medications Administered Current Inpatient Medications Acetaminophen (Acetaminophen 325 Mg Tab) 650 mg PO Q4H PRN PRN Reason: Pain or Fever Stop: 02/21/20 21:30 Aspirin (Aspirin 81 Mg Ectab) 81 mg PO QAM [facility] Stop: 02/22/20 08:59 Last Admin: 01/28/20 08:52 Dose: 81 mg Documented by: Atorvastatin Calcium (Atorvastatin 40 Mg Tab) 80 mg PO QPM [facility] Stop: 02/21/20 21:30 Last Admin: 01/27/20 22:23 Dose: 80 mg Documented by: Baclofen (Baclofen 10 Mg Tab) 5 mg PO QAM [facility] Stop: 02/22/20 08:59 Last Admin: 01/28/20 08:52 Dose: 5 mg Documented by: Carvedilol (Carvedilol 12.5 Mg Tab) 12.5 mg PO BID [facility] Stop: 02/21/20 21:30 Last Admin: 01/28/20 08:42 Dose: 12.5 mg Documented by: Clindamycin HCl (Clindamycin Hcl 150 Mg Cap) 300 mg PO TID [facility] Stop: 02/21/20 21:30 Last Admin: 01/28/20 08:42 Dose: 300 mg Documented by: Clopidogrel Bisulfate (Clopidogrel Bisulfate 75 Mg Tab) 75 mg PO QAM [facility] Stop: 02/22/20 08:59 Last Admin: 01/28/20 08:52 Dose: 75 mg Documented by: Dextrose (Dextrose 50% 50 Ml Syringe) 25 - 50 ml IV UD PRN; Protocol PRN Reason: Hypoglycemia Protocol Stop: 02/21/20 21:30 Glucagon (Glucagon For Inj 1 Mg Vial) 1 mg SQ UD PRN; Protocol PRN Reason: Hypoglycemia Protocol Stop: 02/21/20 21:30 Glucose (Glucose 10 Tabs/Tube) 4 - 8 tabs PO UD PRN; Protocol PRN Reason: Hypoglycemia Protocol Stop: 02/21/20 21:30 Glucose (Glucose 40% Gel 15 Gm Tube) 15 - 30 gm PO UD PRN; Protocol PRN Reason: Hypoglycemia Protocol Stop: 02/21/20 21:30 Insulin Aspart (Insulin Aspart 100 Units/Ml 3 Ml Pen) 0 units SC ACHS [facility] Stop: 02/21/20 21:30 Last Admin: 01/28/20 12:09 Dose: 12 units Documented by: Insulin Glargine (Insulin Glargine Solostar 100 Units/Ml 3 Ml Pen) 10 units SC BID [facility] Stop: 02/21/20 21:30 Last Admin: 01/28/20 08:53 Dose: 10 units Documented by: Lisinopril (Lisinopril 20 Mg Tab) 20 mg PO QAM [facility] Stop: 02/22/20 08:59 Last Admin: 01/23/20 08:21 Dose: 20 mg Documented by: Miscellaneous (Carbohydrates For Hypoglycemia ) 15 - 30 gm PO UD PRN PRN Reason: Hypoglycemia Protocol Stop: 02/21/20 21:30 Miscellaneous Information (Pharmacist Discharge Med Rec Consult) 1 ea N/A UD PRN PRN Reason: Consult Stop: 02/21/20 16:47 Nitroglycerin (Nitroglycerin Sl 0.4 Mg/Tab Tab) 0.4 mg SL UD PRN PRN Reason: Chest Pain Stop: 02/21/20 21:30 Tamsulosin HCl (Tamsulosin Hcl 0.4 Mg Cap) 0.4 mg PO [facility] Stop: 02/21/20 21:30 Last Admin: 01/27/20 22:23 Dose: 0.4 mg Documented by: Warfarin Sodium (Warfarin Sod 7.5 Mg Tab) 7.5 mg PO DAILY@1600 [facility] Stop: 02/23/20 15:59 Last Admin: 01/27/20 16:38 Dose: 7.5 mg Documented by:
[2020-01-28] MEDS: WARFARIN SOD 7.5 MG TAB PO SCH (16:16)
[2020-01-28] MEDS: TAMSULOSIN HCL 0.4 MG CAP PO SCH (20:14)
[2020-01-28] MEDS: ATORVASTATIN 40 MG TAB PO SCH (20:15)
[2020-01-29] MEDS: CLOPIDOGREL BISULFATE 75 MG TAB PO SCH (07:58)
[2020-01-29] MEDS: ASPIRIN 81 MG ECTAB PO SCH (07:58)
[2020-01-29] MEDS: CLINDAMYCIN HCL 150 MG CAP PO SCH ×3 (07:58→21:03)
[2020-01-29] MEDS: carvediloL 12.5 MG TAB PO SCH ×2 (07:58→21:04)
[2020-01-29] MEDS: lisinopriL 20 MG TAB PO SCH (07:58)
[2020-01-29] MEDS: INSULIN GLARGINE SOLOSTAR 100 UNITS/ML 3 ML PEN SC SCH (07:59)
[2020-01-29] MEDS: INSULIN ASPART 100 UNITS/ML 3 ML PEN SC SCH ×4 (08:00→20:58)
[2020-01-29] MEDS: BACLOFEN 10 MG TAB PO SCH (08:03)
[2020-01-29 08:09] LABS: INR 3.1 (0.9-1.1); Prothrombin Time 30.7 Seconds (9.0-12.0)
--- NOTE | 2020-01-29 15:06 | Hospitalist Progress Note ---
Date of Service January 29, 2020 Assessment & Plan (1) Acute cerebrovascular accident: Has been complaining of right upper extremity stiffness and weakness involving right upper and lower extremities for the last 2 to 3 days History of prior CVA with right hemiparesis and paroxysmal atrial fibrillation He is compliant with Eliquis therapy and is on ASA and Plavix for secondary prophylaxis of stroke. No other associated neuro deficit on examination MRI of the brain showed-1. Interval development of a small focus of restricted water diffusion at the level the right frontoparietal parafalcine junction, consistent with a small acute/subacute infarct 2. Moderately extensive white matter disease, and multiple old bilateral lacunar infarcts 3. No MRI evidence of acute hemorrhage. Appreciate neurology input and recommendation; advised to try Coumadin instead of Eliquis Appreciate delivery nurse initiation to restart Coumadin after discussion with the patient and the Coumadin has been started from today the dose of 7.5 mg no bridging will be required as per the delivery nurse to decrease the risk of bleeding He will be staying in the hospital being very high risk patient Will continue with aspirin and Plavix as before Remains stable and awaiting therapeutic INR INR is 3.1 today and will decrease Coumadin to 5 mg daily and monitor INR Denied from going to [facility] I participated in Peer to peer with Dr. Duke 2 times since this morning and was not able to convince the director for acceptance to go to [facility] The main reason of denial was that the PT note does not show any difference from today and the note from [facility] at discharge Discussed with the again and the pillowcase folder The is going to appeal (2) H/O: CVA (cerebrovascular accident): Cont ASA, Plavix and Elliquis. Allow permissive HTN--notify physician if BP rises above 220/120. We will continue PT and OT while in the hospital Getting minimal improvement with physical therapy Feels that right hemiparesis has been improving (3) Type 2 diabetes mellitus: Hold home medications and cont treating him with basal/bolus insulin while admitted. SSI while in the hospital (4) HTN (hypertension): Allow permissive HTN for two days. Permissive hypertension Hold amlodipine and prinivil. We will continue carvedilol to keep heart in sinus rhythm Remains upper side but systolic below 180 Blood pressure noted to be high this morning and also last evening Got 10 mg of lisinopril last evening and will continue with 20 mg as his home dose from this morning Blood pressure seems to be well controlled (5) Hypomagnesemia: replace and repeat in am Magnesium is 2.1 as of 01/22/2020. (6) Osteomyelitis of great toe of right foot: Continue prophylactic clindamycin. No symptoms (7) Aortic stenosis, severe: Known issue. Low salt diet. Continue to monitor. Appreciate cardiology input and recommendation Denies any symptoms (8) Increased urinary frequency: IPSS score was 8 on prior hospitalization and he was started on Flomax. this was not continued or given at discharge from [facility] stay recently. Will restart this now and have him seen by Urology with persistent increased frequency of urination. Discussed with urologist He will have an outpatient appointment on discharge (9) Coronary artery disease: Denies any SOB or chest pain at this time. Appears stable disease. Cont medical management including ASA, Coreg, Lipitor, Plavix. Has abnormal EKG consistent with inferior and anterolateral infarct which have been there is a chronic finding No acute cardiac symptoms (10) DVT prophylaxis: Eliquis has been discontinued and Coumadin has been restarted as of 01/24/2020 Full Code Dispo-to telemetry Discussed with the in detail Denied from going to [facility] Admission and Anticipated Discharge Date Admission Date: January 22, 2020 Subjective 01/23/2020 The patient was seen and examined in medical telemetry unit He is a 59-year-old male with significant past medical history including paroxysmal atrial fibrillation on Eliquis with history of CVA and right hemiparesis in the past. He was admitted yesterday with another stroke. Complains to have little more right upper extremity stiffness and weakness and to some extent right lower extremity weakness as well Denies any other neurological symptoms Denies any chest pain, palpitation, shortness of breath, any abdominal pain, nausea and/or vomiting 01/24/2020 The patient was seen and examined in medical telemetry unit in presence of the He denies any new symptoms and weakness and stiffness involving the right side extremities have been improving He is willing to try Coumadin in place of Eliquis and that was discussed extensively between the patient, the and the delivery nurse 01/25/2020 The patient was seen and examined in medical telemetry unit in presence of the He remains stable He is INR is not yet therapeutic We will continue physical therapy 01/26/2020 Patient was seen and examined in medical telemetry unit He remains stable He is right-sided weakness has been improving 01/27/2020 Patient was seen and examined in medical telemetry unit He remains stable and is right hemiparesis has been improving Denies any other symptoms 01/28/2020 The patient was seen and examined in the medical telemetry unit He remains stable Blood pressure has been noted to be high and his home medications have been restarted Denies any new symptoms 01/29/2020 The patient was seen and examined in medical telemetry unit in presence of the He remains stable and waiting to go to rehab Denies any symptoms Review of Systems Review of Systems: All systems reviewed and are unremarkable except as noted below Neurologic: + paralysis (Partial paralysis involving the right side extremities) and + abnormal speech (Chronic but communicative); no numbness Physical Exam Physical Exam: Lying in bed comfortably Constitutional: well developed, well nourished, + acute distress (Minimal discomfort due to right upper extremity with stiffness) and + ill appearing Eyes: PERRL, conjunctivae normal, anicteric sclerae ENMT: external ear and nose normal, oropharynx normal Neck: trachea midline, no thyromegaly Respiratory: normal respiratory effort; no respiratory distress Auscultation: lungs clear to auscultation bilaterally Cardiovascular: Rate/Rhythm: regular rate and regular rhythm Heart Sounds: + murmur (2/6 ESM over precordium) Extremities: no edema Gastrointestinal (Abdomen): Inspection/Auscultation: abdomen normal to inspection and normal bowel sounds; abdomen not distended Percussion/Palpation: abdomen soft; abdomen nontender Musculoskeletal: No acute arthritis involving any joints Neurologic: moves all extremities and + focal motor deficit (Right-sided extremities are weaker than the left, no sensory abnormality) Speech / Cognition: + abnormal speech (Residual speech abnormality from prior stroke) Motor/Sensory: no tremor Has right-sided hemiparesis. Lymphatic: no cervical or axillary lymphadenopathy Results & Data Results & Data ([facility]) Vital Signs (Past 12 Hours) Vital Signs Temp Pulse Pulse Resp BP Pulse Ox 01/29/20 11:04 36.6 C 60 18 123/70 94 01/29/20 07:24 36.3 C L 62 18 158/79 H 95 01/29/20 07:23 60 01/29/20 04:00 36.8 C 79 20 131/75 96 Medications Administered Current Inpatient Medications Acetaminophen (Acetaminophen 325 Mg Tab) 650 mg PO Q4H PRN PRN Reason: Pain or Fever Stop: 02/21/20 21:30 Aspirin (Aspirin 81 Mg Ectab) 81 mg PO QAM [facility] Stop: 02/22/20 08:59 Last Admin: 01/29/20 07:58 Dose: 81 mg Documented by: Atorvastatin Calcium (Atorvastatin 40 Mg Tab) 80 mg PO QPM [facility] Stop: 02/21/20 21:30 Last Admin: 01/28/20 20:15 Dose: 80 mg Documented by: Baclofen (Baclofen 10 Mg Tab) 5 mg PO QAM [facility] Stop: 02/22/20 08:59 Last Admin: 01/29/20 08:03 Dose: 5 mg Documented by: Carvedilol (Carvedilol 12.5 Mg Tab) 12.5 mg PO BID [facility] Stop: 02/21/20 21:30 Last Admin: 01/29/20 07:58 Dose: 12.5 mg Documented by: Clindamycin HCl (Clindamycin Hcl 150 Mg Cap) 300 mg PO TID [facility] Stop: 02/21/20 21:30 Last Admin: 01/29/20 12:37 Dose: 300 mg Documented by: Clopidogrel Bisulfate (Clopidogrel Bisulfate 75 Mg Tab) 75 mg PO QAM [facility] Stop: 02/22/20 08:59 Last Admin: 01/29/20 07:58 Dose: 75 mg Documented by: Dextrose (Dextrose 50% 50 Ml Syringe) 25 - 50 ml IV UD PRN; Protocol PRN Reason: Hypoglycemia Protocol Stop: 02/21/20 21:30 Glucagon (Glucagon For Inj 1 Mg Vial) 1 mg SQ UD PRN; Protocol PRN Reason: Hypoglycemia Protocol Stop: 02/21/20 21:30 Glucose (Glucose 10 Tabs/Tube) 4 - 8 tabs PO UD PRN; Protocol PRN Reason: Hypoglycemia Protocol Stop: 02/21/20 21:30 Glucose (Glucose 40% Gel 15 Gm Tube) 15 - 30 gm PO UD PRN; Protocol PRN Reason: Hypoglycemia Protocol Stop: 02/21/20 21:30 Insulin Aspart (Insulin Aspart 100 Units/Ml 3 Ml Pen) 0 units SC ACHS [facility] Stop: 02/21/20 21:30 Last Admin: 01/29/20 12:37 Dose: 16 units Documented by: Insulin Glargine (Insulin Glargine Solostar 100 Units/Ml 3 Ml Pen) 10 units SC BID [facility] Stop: 02/21/20 21:30 Last Admin: 01/29/20 07:59 Dose: 10 units Documented by: Lisinopril (Lisinopril 20 Mg Tab) 20 mg PO QAM [facility] Stop: 02/22/20 08:59 Last Admin: 01/29/20 07:58 Dose: 20 mg Documented by: Miscellaneous (Carbohydrates For Hypoglycemia ) 15 - 30 gm PO UD PRN PRN Reason: Hypoglycemia Protocol Stop: 02/21/20 21:30 Nitroglycerin (Nitroglycerin Sl 0.4 Mg/Tab Tab) 0.4 mg SL UD PRN PRN Reason: Chest Pain Stop: 02/21/20 21:30 Tamsulosin HCl (Tamsulosin Hcl 0.4 Mg Cap) 0.4 mg PO HS [facility] Stop: 02/21/20 21:30 Last Admin: 01/28/20 20:14 Dose: 0.4 mg Documented by: Warfarin Sodium (Warfarin Sod 5 Mg Tab) 5 mg PO DAILY@1600 [facility] Stop: 02/28/20 15:59
[2020-01-29] MEDS ORDERED: PHARMACY GLYCEMIC MGMT CONSULT PRN (15:31)
[2020-01-29] MEDS: WARFARIN SOD 5 MG TAB PO SCH (16:07)
[2020-01-29] MEDS ORDERED: INSULIN GLARGINE SOLOSTAR 100 UNITS/ML 3 ML PEN SC SCH (21:00)
[2020-01-29] MEDS: ATORVASTATIN 40 MG TAB PO SCH (21:03)
[2020-01-29] MEDS: TAMSULOSIN HCL 0.4 MG CAP PO SCH (21:03)
[2020-01-30 06:38] LABS: INR 3.2 (0.9-1.1); Prothrombin Time 31.9 Seconds (9.0-12.0)
[2020-01-30] MEDS: lisinopriL 20 MG TAB PO SCH (08:42)
[2020-01-30] MEDS: CLOPIDOGREL BISULFATE 75 MG TAB PO SCH (08:42)
[2020-01-30] MEDS: carvediloL 12.5 MG TAB PO SCH ×2 (08:42→20:32)
[2020-01-30] MEDS: CLINDAMYCIN HCL 150 MG CAP PO SCH ×3 (08:42→20:38)
[2020-01-30] MEDS: ASPIRIN 81 MG ECTAB PO SCH (08:42)
[2020-01-30] MEDS: INSULIN GLARGINE SOLOSTAR 100 UNITS/ML 3 ML PEN SC SCH ×2 (08:44→20:31)
[2020-01-30] MEDS: INSULIN ASPART 100 UNITS/ML 3 ML PEN SC SCH ×4 (08:46→20:30)
[2020-01-30] MEDS: BACLOFEN 10 MG TAB PO SCH (08:55)
--- NOTE | 2020-01-30 10:06 | Pharmacy Report ---
Glycemic Control Consultation - Date of Service January 30, 2020 - Scope Scope: Glycemic Pharmacist consulted for glycemic control and to write orders per [facility] inpatient glycemic control protocol. - Objective Weight: 89.9 kg Accuchecks BSG (last 24hrs): - Recent Pertinent Medications Outpatient Anti-diabetic Regimen: * Lantus 18 units SQ BID + Novolog 10 units SQ AC + Metformin 1000 mg PO BIDM * A1c = 7.9% on 12/06/2019 The patient is currently receiving: * Basal insulin: Lantus 10 units every 12 hours * Correctional Insulin: Novolog Correction per scale ACHS Goal Range: Low 140 mg/dL - High 180 mg/dL Correction Factor: 25 mg/dL/unit * Prandial insulin: Per carb ratio of 1 unit per 8 grams CHO consumed Risk Factors for Insulin Resistance: * Infection: * Clindamycin 300 mg PO TID * Diet: * T2DM - Assessment & Plan Assessment & Plan: ASSESSMENT: 01/29: * 59 yo M admitted on 01/21 secondary to an acute cerebrovascular accident. Pharmacy was consulted on the afternoon of 01/28 for inpatient glycemic management. Patient is well known to our service and previous admission data will likely guide anti-diabetic regimen during this admission. * CS had been receiving 10 units of Lantus BID up until last evening. His fasting BSGs have been trending up on this basal dose of 20 units/day: 139 - 165 - 192 - 200 - 190 - 219 mg/dL. * Over the past 48 hours, patient's average BSG has been ~ 242 mg/dL. His lunchtime BSGs the past two days were 337 & 317 mg/dL. * He received a total of 62 units of insulin yesterday * 28 units of basal insulin * 34 units of prandial/correctional insulin * BSGs ranging 190 - 317 mg/dL yesterday * AM Fasting BSG = 184 mg/dL - therefore, will increase Basal insulin by ~ 40% today * This will closely mimic previous admission regimen in which patient was well controlled * Post-prandial BSGs are elevated/BSGs rise throughout the day - therefore will tighten goal range as well as CF/CR so patient receives more correctional/prandial insulin PLAN FOR INPATIENT GLYCEMIC CONTROL: * Holding outpatient oral diabetes medications * Basal insulin - increased 40% * Lantus 20 units SQ BID * Bolus insulin - tightened goal range & CF/CR * NovoLog per scale ACHS or Q6hrs while NPO * Goal Range: Low 110 mg/dL - High 140 mg/dL * Correction Factor: 15 mg/dL/unit * Nutritional / Prandial insulin per carb ratio of 1 unit per 5 grams CHO consumed * Please note that the plan above was derived based on current level of insulin resistance and hospital stress. These recommendations are appropriate for inpatient admission only. Plan of care upon discharge will need to be reassessed to avoid potential outpatient hypo/hyperglycemia. Thank you.
[2020-01-30] MEDS: WARFARIN SOD 5 MG TAB PO SCH (15:50)
--- NOTE | 2020-01-30 19:32 | Hospitalist Progress Note ---
Date of Service January 30, 2020 Assessment & Plan (1) Acute cerebrovascular accident: Cont ASA, Plavix and convert Eliquis to coumadin. This was verified with cardiology and INR is being monitored to titrate warfarin to goal 2-3. He has improved physically with increased ROM ability to move RUE independently, although still not back to baseline. Denies numbness. At baseline cognition. (2) Right arm weakness: as a result of this acute stroke. Improved as above. Therapists are recommending acute inpatient rehab which family is trying to get approved through insurance. (3) HTN (hypertension): Vascillating somewhat here. Cont lisinopril 20, Norvasc 5mg daily, and Coreg 12.5 PO BID per home regimen. Treat for elevated BP as needed. Cont q4h BP checks. (4) Aortic valve stenosis: Chronic, no evidence of heart failure, syncope or lightheadedness with standing, and no chest pain present. Cont management per outpatient manager simulation. (5) Type 2 diabetes mellitus: Insulin while hospitalized and currently around his goal. (6) Right foot drop: chronic from prior stroke in the past. Wears a R foot brace to help him with ambulation. (7) Osteomyelitis of great toe of right foot: cont chronic suppressive therapy with clindamycin. (8) Coronary artery disease: chronic, stable. Cont medical mangement per home regimen. (9) BPH with obstruction/lower urinary tract symptoms: Improved with Flomax, started on admission. (10) DVT prophylaxis: coumadin Full Code Dispo-to rehab inpatient once approved by insurance. I went over the remaining options if denied including SNF, Home [facility] Health, or home with Private Duty nursing support. verbalized that she understood, but wasn't ok with any of those other options. Leda George DO [facility] Hospitalist Admission and Anticipated Discharge Date Admission Date: January 22, 2020 Subjective Patient is feeling better today that at admission. He has recovered some more (but not complete) function and sensation in his RUE. He denies any new symptoms at this time. He reports that his urination frequency has improved after starting Flomax one week ago. He is tolerating PO. and patient and I discussed transition to rehab post discharge and she is involved with an insurance appeal in the morning. MD appeal was not approved yesterday. Review of Systems Review of Systems: All systems reviewed & are unremarkable except as noted in Subjective Physical Exam Physical Exam: CONSTITUTIONAL: WNWD, vitals as above, generally well- appearing EYES: pupils are equal and round bilaterally, normal conjunctivae, no scleral icterus ENT: MMM RESPIRATORY: clear to auscultation bilaterally, no crackles, rales or wheezes, normal respiratory effort CARDIOVASCULAR: regular rate and rhythm, 3/6 ULISES, no gallops or rubs, no JVD, no peripheral edema GASTROINTESTINAL: soft, nontender, nondistended MUSCULOSKELETAL: strength 5/5 throughout aside from dorsiflexion of right foot and limited full ROM of his RUE. head is normocephalic and atraumatic. Gait was not assessed 2/2 higher fall risk. SKIN: warm and dry NEUROLOGIC: No facial palsy, no dysarthria. CN 2-12 grossly intact, no sensory deficit, normal cognition, normal speech, no tremor PSYCHIATRIC: alert cooperative and oriented to person, place and time. Euthymic mood, makes good eye contact, language grossly intact, recent and remote memory grossly intact. Results & Data Results & Data ([facility]) Vital Signs (Past 12 Hours) Vital Signs Temp Pulse Pulse Resp BP BP Pulse Ox 01/30/20 16:00 60 01/30/20 15:17 36.5 C 62 18 169/72 H 96 01/30/20 12:00 36.7 C 70 18 137/73 96 Medications Administered Current Inpatient Medications Acetaminophen (Acetaminophen 325 Mg Tab) 650 mg PO Q4H PRN PRN Reason: Pain or Fever Stop: 02/21/20 21:30 Aspirin (Aspirin 81 Mg Ectab) [facility] [place]: 02/22/20 08:59 Last Admin: 01/30/20 08:42 Dose: 81 mg Documented by: Atorvastatin Calcium (Atorvastatin 40 Mg Tab) 80 mg PO QPM [facility] Stop: 02/21/20 21:30 Last Admin: 01/29/20 21:03 Dose: 80 mg Documented by: Baclofen (Baclofen 10 Mg Tab) 5 mg PO QAM [facility] Stop: 02/22/20 08:59 Last Admin: 01/30/20 08:55 Dose: 5 mg Documented by: Carvedilol (Carvedilol 12.5 Mg Tab) 12.5 mg PO BID [facility] Stop: 02/21/20 21:30 Last Admin: 01/30/20 08:42 Dose: 12.5 mg Documented by: Clindamycin HCl (Clindamycin Hcl 150 Mg Cap) 300 mg PO TID [facility] Stop: 02/21/20 21:30 Last Admin: 01/30/20 14:47 Dose: 300 mg Documented by: Clopidogrel Bisulfate (Clopidogrel Bisulfate 75 Mg Tab) [facility] [place]: 02/22/20 08:59 Last Admin: 01/30/20 08:42 Dose: 75 mg Documented by: Dextrose (Dextrose 50% 50 Ml Syringe) 25 - 50 ml IV UD PRN; Protocol PRN Reason: Hypoglycemia Protocol Stop: 02/21/20 21:30 Glucagon (Glucagon For Inj 1 Mg Vial) 1 mg SQ UD PRN; Protocol PRN Reason: Hypoglycemia Protocol Stop: 02/21/20 21:30 Glucose (Glucose 10 Tabs/Tube) 4 - 8 tabs PO UD PRN; Protocol PRN Reason: Hypoglycemia Protocol Stop: 02/21/20 21:30 Glucose (Glucose 40% Gel 15 Gm Tube) 15 - 30 gm PO UD PRN; Protocol PRN Reason: Hypoglycemia Protocol Stop: 02/21/20 21:30 Insulin Aspart (Insulin Aspart 100 Units/Ml 3 Ml Pen) 0 units SC ACHS [facility]; Protocol Stop: 02/21/20 21:30 Last Admin: 01/30/20 17:05 Dose: 17 units Documented by: Insulin Glargine (Insulin Glargine Solostar 100 Units/Ml 3 Ml Pen) 20 units SC BID [facility]; Protocol Stop: 02/28/20 20:59 Last Admin: 01/30/20 08:44 Dose: 20 units Documented by: Lisinopril (Lisinopril 20 Mg Tab) [facility] [place]: 02/22/20 08:59 Last Admin: 01/30/20 08:42 Dose: 20 mg Documented by: Miscellaneous (Carbohydrates For Hypoglycemia ) 15 - 30 gm PO UD PRN PRN Reason: Hypoglycemia Protocol Stop: 02/21/20 21:30 Miscellaneous Information (Pharmacy Glycemic Mgmt Consult) 1 ea N/A UD PRN PRN Reason: Consult Stop: 02/28/20 15:30 Nitroglycerin (Nitroglycerin Sl 0.4 Mg/Tab Tab) 0.4 mg SL UD PRN PRN Reason: Chest Pain Stop: 02/21/20 21:30 Tamsulosin HCl (Tamsulosin Hcl 0.4 Mg Cap) 0.4 mg PO HS [facility] Stop: 02/21/20 21:30 Last Admin: 01/29/20 21:03 Dose: 0.4 mg Documented by: Warfarin Sodium (Warfarin Sod 5 Mg Tab) 5 mg PO DAILY@1600 [facility] Stop: 02/28/20 15:59 Last Admin: 01/30/20 15:50 Dose: 5 mg Documented by:
[2020-01-30] MEDS: ATORVASTATIN 40 MG TAB PO SCH (20:32)
[2020-01-30] MEDS: TAMSULOSIN HCL 0.4 MG CAP PO SCH (20:39)
[2020-01-31] MEDS: carvediloL 12.5 MG TAB PO SCH ×2 (08:30→20:21)
[2020-01-31] MEDS: CLOPIDOGREL BISULFATE 75 MG TAB PO SCH (08:30)
[2020-01-31] MEDS: CLINDAMYCIN HCL 150 MG CAP PO SCH ×3 (08:30→20:21)
[2020-01-31] MEDS: lisinopriL 20 MG TAB PO SCH (08:31)
[2020-01-31] MEDS: ASPIRIN 81 MG ECTAB PO SCH (08:31)
[2020-01-31] MEDS: INSULIN ASPART 100 UNITS/ML 3 ML PEN SC SCH ×4 (08:59→20:25)
[2020-01-31] MEDS: BACLOFEN 10 MG TAB PO SCH (08:59)
[2020-01-31] MEDS ORDERED: INSULIN GLARGINE SOLOSTAR 100 UNITS/ML 3 ML PEN SC SCH (09:00)
--- NOTE | 2020-01-31 10:20 | Pharmacy Report ---
Pharmacy Glycemic Short Note 2 - Date of Service January 31, 2020 - Glycemic Short BSG Results (Last 24 hours): 01/30/20 01/30/20 01/30/20 11:52 16:44 20:18 POC Glucose 259 H 194 H 209 H 01/31/20 07:33 POC Glucose 198 H OUTPATIENT ANTIDIABETIC REGIMEN: * Lantu 18 units SQ BID * Novolog 10 units with each meal * Metformin 1gm PO BID * A1c = 7.9% ASSESSMENT: 01/30 * BSGs remain elevated despite receiving 86 units of insulin over the last 24 hrs (while tolerating a diet) * Fasting BSG 198 this AM with 40 units of basal insulin on board - will continue to up titrate * Post-prandial BSGs did not climb substantially yesterday, therefore will not further escalate Novolog doses at this time as primary deficiency may be basal * Anticipate this patient to require 90-100 units of insulin per day to achieve targets while tolerating a diet and with current stressors PLAN FOR INPATIENT GLYCEMIC CONTROL: * Hold outpatient oral diabetes medications (metformin) * Basal insulin - increase * Lantus 25 units SQ BID * Bolus insulin - no change * NovoLog per scale ACHS or Q6hrs while NPO * Goal Range: Low 110 mg/dL - High 140 mg/dL * Correction Factor: 15 mg/dL/unit * Nutritional / Prandial insulin per carb ratio of 1 unit per 5 grams CHO consumed PLAN FOR DISCHARGE: * A1c 7.9%, could consider alterations in insulin regimen if tighter glycemic control desired and can be achieved w/o inducing hypoglycemia. Based upon this hospitalization it does appear that an increase in outpt insulin doses would be tolerated. Might recommend the following: * Lantus 22 units BID (~20% increase) * Novolog 10 units with each meal (no change) - but suspect a higher dose could be tolerated - recommend upward titration by out-pt provider * Metformin 1gm BID
[2020-01-31 10:59] LABS: Hematocrit (blood only) 36.1 % (42-52); Mean Corpuscular Hemoglobin 25.9 pg (25-34); Mean Corpuscular Hgb Conc 33.2 g/dL (32-36); Mean Platelet Volume 10.3 fL (7.4-10.4); Platelet Count 258 K/uL (130-400); RDW Coefficient of Variation 14.1 % (11.5-14.5); Red Blood Count 4.63 M/uL (4.7-6.1); White Blood Count 7.03 K/uL (4.8-10.8)
[2020-01-31 11:08] LABS: INR 2.4 (0.9-1.1); Prothrombin Time 24.5 Seconds (9.0-12.0)
[2020-01-31 11:21] LABS: BUN Creatinine Ratio 20.7 (10-20); Calcium 8.9 mg/dl (8.5-10.1); Creatinine Clr Calc Pharmacy 109.6 ml/min; Est GFR (African American) 110.6; Est GFR (Non-African American) 95.4; Magnesium 1.7 mg/dl (1.8-2.4); Potassium 3.8 mmol/L (3.5-5.1)
[2020-01-31] MEDS: WARFARIN SOD 5 MG TAB PO SCH (15:45)
--- NOTE | 2020-01-31 17:08 | Hospitalist Progress Note ---
Date of Service January 31, 2020 Assessment & Plan (1) Acute cerebrovascular accident: Cont ASA, Plavix and convert Eliquis to coumadin. Cont Lipitor 80 mg daily. This was verified with cardiology and INR is being monitored to titrate warfarin to goal 2-3. He has improved physically with increased ROM ability to move RUE independently, although still not back to baseline. Denies numbness. At baseline cognition. (2) Right arm weakness: as a result of this acute stroke. Improving with PT and OT working with him. Therapists are recommending acute inpatient rehab which family is trying to get approved through insurance. (3) HTN (hypertension): Vascillating somewhat here. Cont lisinopril 20, Norvasc 5mg daily, and Coreg 12.5 PO BID per home regimen. Treat for elevated BP as needed. Cont q4h BP checks. (4) Aortic valve stenosis: Chronic, no evidence of heart failure, syncope or lightheadedness with standing, and no chest pain present. Cont management per outpatient supervisor shipping room. (5) Type 2 diabetes mellitus: Insulin while hospitalized and currently around his goal. (6) Right foot drop: chronic from prior stroke in the past. Wears a R foot brace to help him with ambulation. (7) Osteomyelitis of great toe of right foot: cont chronic suppressive therapy with clindamycin. (8) Coronary artery disease: chronic, stable. Cont medical mangement per home regimen. (9) BPH with obstruction/lower urinary tract symptoms: Improved with Flomax, started on admission. (10) DVT prophylaxis: coumadin Full Code Dispo-to rehab inpatient once approved by insurance. I went over the remaining options if denied including SNF, Home with Home Health, or home with Private Duty nursing support. verbalized that she understood, but wasn't ok with any of those other options. [facility] and Anticipated Discharge Date Admission Date: January 22, 2020 Subjective Doing well today No complaints or concerns today Review of Systems Review of Systems: All systems reviewed & are unremarkable except as noted in Subjective Physical Exam Physical Exam: CONSTITUTIONAL: WNWD, vitals as above, generally well- appearing EYES: pupils are equal and round bilaterally, normal conjunctivae, no scleral icterus ENT: MMM RESPIRATORY: clear to auscultation bilaterally, no crackles, rales or wheezes, normal respiratory effort CARDIOVASCULAR: regular rate and rhythm, 3/6 ULISES, no gallops or rubs, no JVD, no peripheral edema GASTROINTESTINAL: soft, nontender, nondistended MUSCULOSKELETAL: strength 5/5 throughout aside from dorsiflexion of right foot and limited full ROM of his RUE. head is normocephalic and atraumatic. Gait was not assessed 2/2 higher fall risk. SKIN: warm and dry NEUROLOGIC: No facial palsy, no dysarthria. CN 2-12 grossly intact, no sensory deficit, normal cognition, normal speech, no tremor PSYCHIATRIC: alert cooperative and oriented to person, place and time. Euthymic mood, makes good eye contact, language grossly intact, recent and remote memory grossly intact. Results & Data Results & Data ([facility]) Vital Signs (Past 12 Hours) Vital Signs Temp Pulse Pulse Pulse Resp BP Pulse Ox 01/31/20 15:52 36.7 C 67 18 128/76 98 01/31/20 11:25 36.9 C 67 20 143/72 H 97 01/31/20 10:34 82 126/71 01/31/20 08:01 62 01/31/20 07:04 36.6 C 71 18 197/94 H 96 Laboratory Results Short CBC 01/31/20 Range/Units 10:41 WBC 7.03 (4.8-10.8) K/uL Hgb 12.0 L (14.0-18.0) g/dL Hct 36.1 L (42-52) % Plt Count 258 (130-400) K/uL BMP 01/31/20 10:41 Sodium 139 Potassium 3.8 Chloride 106 Carbon Dioxide 26 BUN 17 Creatinine 0.82 Glucose 292 H Calcium 8.9
[2020-01-31] MEDS: INSULIN GLARGINE SOLOSTAR 100 UNITS/ML 3 ML PEN SC SCH (20:24)
[2020-01-31] MEDS: TAMSULOSIN HCL 0.4 MG CAP PO SCH (20:24)
[2020-01-31] MEDS: ATORVASTATIN 40 MG TAB PO SCH (20:24)
[2020-02-01] MEDS: lisinopriL 20 MG TAB PO SCH (05:23)
[2020-02-01 07:45] LABS: INR 2.5 (0.9-1.1); Prothrombin Time 25.1 Seconds (9.0-12.0)
[2020-02-01] MEDS: ASPIRIN 81 MG ECTAB PO SCH (08:28)
[2020-02-01] MEDS: carvediloL 12.5 MG TAB PO SCH ×2 (08:29→20:33)
[2020-02-01] MEDS: CLINDAMYCIN HCL 150 MG CAP PO SCH ×3 (08:29→20:33)
[2020-02-01] MEDS: CLOPIDOGREL BISULFATE 75 MG TAB PO SCH (08:29)
[2020-02-01] MEDS: BACLOFEN 10 MG TAB PO SCH (08:29)
[2020-02-01] MEDS: INSULIN GLARGINE SOLOSTAR 100 UNITS/ML 3 ML PEN SC SCH ×2 (08:30→20:34)
[2020-02-01] MEDS: INSULIN ASPART 100 UNITS/ML 3 ML PEN SC SCH ×4 (08:32→20:36)
--- NOTE | 2020-02-01 11:39 | Pharmacy Report ---
Pharmacy Glycemic Short Note 2 - Date of Service February 01, 2020 - Glycemic Short BSG Results (Last 24 hours): 01/31/20 01/31/20 02/01/20 16:47 20:16 07:42 POC Glucose 165 H 170 H 161 H OUTPATIENT ANTIDIABETIC REGIMEN: * Lantu 18 units SQ BID * Novolog 10 units with each meal * Metformin 1gm PO BID * A1c = 7.9% ASSESSMENT: 01/31 * BSGs have improved over last 24 hrs * 87 units insulin administered over last 24 hrs while tolerating diet * Fasting BSG 161 this AM, elevated but improving, with 47 units basal on board - will continue with current Lantus order (25 units BID) due to recent dose increase * Post-prandial BSGs improved w/ change in CR yesterday afternoon - will continue w/ same parameters today and monitor post-prandial trend 01/30 * BSGs remain elevated despite receiving 86 units of insulin over the last 24 hrs (while tolerating a diet) * Fasting BSG 198 this AM with 40 units of basal insulin on board - will continue to up titrate * Post-prandial BSGs did not climb substantially yesterday, therefore will not further escalate Novolog doses at this time as primary deficiency may be basal * Anticipate this patient to require 90-100 units of insulin per day to achieve targets while tolerating a diet and with current stressors PLAN FOR INPATIENT GLYCEMIC CONTROL: * Hold outpatient oral diabetes medications (metformin) * Basal insulin - no change * Lantus 25 units SQ BID * Bolus insulin - no change * NovoLog per scale ACHS or Q6hrs while NPO * Goal Range: Low 110 mg/dL - High 140 mg/dL * Correction Factor: 15 mg/dL/unit * Nutritional / Prandial insulin per carb ratio of 1 unit per 4 grams CHO consumed PLAN FOR DISCHARGE: * A1c 7.9%, could consider alterations in insulin regimen if tighter glycemic control desired and can be achieved w/o inducing hypoglycemia. Based upon this hospitalization it does appear that an increase in outpt insulin doses wo uld be tolerated. Might recommend the following: * Lantus 22 units BID (~20% increase in outpt dose) * Novolog 10 units with each meal (no change) - but suspect a higher dose (12-13 units) could be tolerated - recommend upward titration by out-pt provider * Metformin 1gm BID
[2020-02-01] MEDS: WARFARIN SOD 5 MG TAB PO SCH (17:10)
--- NOTE | 2020-02-01 19:00 | Hospitalist Progress Note ---
Date of Service February 01, 2020 Assessment & Plan (1) Acute cerebrovascular accident: Cont ASA, Plavix and convert Eliquis to coumadin. Cont home Lipitor 80mg. INR therapeutic on current dose 5mg daily. He has improved physically with increased ROM ability to move RUE independently, although still not back to baseline. Denies numbness. At baseline cognition. (2) Right arm weakness: as a result of this acute stroke. Improved as above. Acute rehab appeal was denied again through insurance. (3) HTN (hypertension): Around his goal. Cont lisinopril 20, Norvasc 5mg daily, and Coreg 12.5 PO BID per home regimen. Treat for elevated BP as needed. Cont q4h BP checks. (4) Aortic valve stenosis: Chronic, no evidence of heart failure, syncope or lightheadedness with standing, and no chest pain present. Cont management per outpatient vehicle glass technician. (5) Type 2 diabetes mellitus: Insulin while hospitalized and currently around his goal. (6) Right foot drop: chronic from prior stroke in the past. Wears a R foot brace to help him with ambulation. (7) Osteomyelitis of great toe of right foot: cont chronic suppressive therapy with clindamycin. (8) Coronary artery disease: chronic, stable. Cont medical mangement per home regimen. (9) BPH with obstruction/lower urinary tract symptoms: Improved with Flomax, started on admission. (10) DVT prophylaxis: coumadin Full Code Dispo-to SNF in am after rehab appeal was denied. Leda George DO [facility] Hospitalist Admission and Anticipated Discharge Date Admission Date: January 22, 2020 Subjective doing well today continues to improve physically reports right lower leg pain while sitting at bedside chair-resolved when he got up to walk around. US leg offered, however, low likelhood for clot with therapeutic INR for past couple of days. He declines offer. tolerating PO OK with dc to SNF Review of Systems Review of Systems: All systems reviewed & are unremarkable except as noted in Subjective Physical Exam Physical Exam: CONSTITUTIONAL: WNWD, vitals as above, generally well- appearing EYES: pupils are equal and round bilaterally, normal conjunctivae, no scleral icterus ENT: MMM RESPIRATORY: clear to auscultation bilaterally, no crackles, rales or wheezes, normal respiratory effort CARDIOVASCULAR: regular rate and rhythm, 3/6 ULISES, no gallops or rubs, no JVD, no peripheral edema GASTROINTESTINAL: soft, nontender, nondistended MUSCULOSKELETAL: strength 5/5 throughout aside from dorsiflexion of right foot and limited full ROM of his RUE. head is normocephalic and atraumatic. Gait was not assessed 2/2 higher fall risk. SKIN: warm and dry NEUROLOGIC: No facial palsy, no dysarthria. CN 2-12 grossly intact, no sensory deficit, normal cognition, normal speech, no tremor PSYCHIATRIC: alert cooperative and oriented to person, place and time. Euthymic mood, makes good eye contact, language grossly intact, recent and remote memory grossly intact. Results & Data Results & Data ([facility]) Vital Signs (Past 12 Hours) Vital Signs Temp Pulse Resp BP BP Pulse Ox 02/01/20 18:41 36.5 C 66 20 149/75 H 95 02/01/20 15:37 36.6 C 57 L 20 122/71 96 02/01/20 08:00 36.8 C 70 20 152/84 H 97 Medications Administered Current Inpatient Medications Acetaminophen (Acetaminophen 325 Mg Tab) 650 mg PO Q4H PRN PRN Reason: Pain or Fever Stop: 02/21/20 21:30 Last Admin: 02/01/20 13:15 Dose: 650 mg Documented by: Aspirin (Aspirin 81 Mg Ectab) 81 mg PO QAM [facility] Stop: 02/22/20 08:59 Last Admin: 02/01/20 08:28 Dose: 81 mg Documented by: Atorvastatin Calcium (Atorvastatin 40 Mg Tab) 80 mg PO QPM [facility] Stop: 02/21/20 21:30 Last Admin: 01/31/20 20:24 Dose: 80 mg Documented by: Baclofen (Baclofen 10 Mg Tab) 5 mg PO QAM [facility] Stop: 02/22/20 08:59 Last Admin: 02/01/20 08:29 Dose: 5 mg Documented by: Carvedilol (Carvedilol 12.5 Mg Tab) 12.5 mg PO BID [facility] Stop: 02/21/20 21:30 Last Admin: 02/01/20 08:29 Dose: 12.5 mg Documented by: Clindamycin HCl (Clindamycin Hcl 150 Mg Cap) 300 mg PO TID [facility] Stop: 02/21/20 21:30 Last Admin: 02/01/20 13:16 Dose: 300 mg Documented by: Clopidogrel Bisulfate (Clopidogrel Bisulfate 75 Mg Tab) [facility] [place]: 02/22/20 08:59 Last Admin: 02/01/20 08:29 Dose: 75 mg Documented by: Dextrose (Dextrose 50% 50 Ml Syringe) 25 - 50 ml IV UD PRN; Protocol PRN Reason: Hypoglycemia Protocol Stop: 02/21/20 21:30 Glucagon (Glucagon For Inj 1 Mg Vial) 1 mg SQ UD PRN; Protocol PRN Reason: Hypoglycemia Protocol Stop: 02/21/20 21:30 Glucose (Glucose 10 Tabs/Tube) 4 - 8 tabs PO UD PRN; Protocol PRN Reason: Hypoglycemia Protocol Stop: 02/21/20 21:30 Glucose (Glucose 40% Gel 15 Gm Tube) 15 - 30 gm PO UD PRN; Protocol PRN Reason: Hypoglycemia Protocol Stop: 02/21/20 21:30 Insulin Aspart (Insulin Aspart 100 Units/Ml 3 Ml Pen) 0 units SC ACHS [facility]; Protocol Stop: 02/21/20 21:30 Last Admin: 02/01/20 17:12 Dose: 9 units Documented by: Insulin Glargine (Insulin Glargine Solostar 100 Units/Ml 3 Ml Pen) 25 units SC BID [facility]; Protocol Stop: 03/01/20 20:59 Last Admin: 02/01/20 08:30 Dose: 25 units Documented by: Lisinopril (Lisinopril 20 Mg Tab) [address] [facility] Stop: 03/02/20 04:24 Last Admin: 02/01/20 05:23 Dose: 20 mg Documented by: Miscellaneous (Carbohydrates For Hypoglycemia ) 15 - 30 gm PO UD PRN PRN Reason: Hypoglycemia Protocol Stop: 02/21/20 21:30 Miscellaneous Information (Pharmacy Glycemic Mgmt Consult) 1 ea N/A UD PRN PRN Reason: Consult Stop: 02/28/20 15:30 Nitroglycerin (Nitroglycerin Sl 0.4 Mg/Tab Tab) 0.4 mg SL UD PRN PRN Reason: Chest Pain Stop: 02/21/20 21:30 Tamsulosin HCl (Tamsulosin Hcl 0.4 Mg Cap) 0.4 mg PO [facility] Stop: 02/21/20 21:30 Last Admin: 01/31/20 20:24 Dose: 0.4 mg Documented by: Warfarin Sodium (Warfarin Sod 5 Mg Tab) 5 mg PO DAILY@1600 [facility] Stop: 02/28/20 15:59 Last Admin: 02/01/20 17:10 Dose: 5 mg Documented by:
[2020-02-01] MEDS: TAMSULOSIN HCL 0.4 MG CAP PO SCH (20:33)
[2020-02-01] MEDS: ATORVASTATIN 40 MG TAB PO SCH (20:34)
[2020-02-02 07:23] LABS: INR 2.9 (0.9-1.1); Prothrombin Time 28.6 Seconds (9.0-12.0)
[2020-02-02] MEDS: carvediloL 12.5 MG TAB PO SCH (08:22)
[2020-02-02] MEDS: ASPIRIN 81 MG ECTAB PO SCH (08:23)
[2020-02-02] MEDS: CLINDAMYCIN HCL 150 MG CAP PO SCH ×2 (08:23→12:49)
[2020-02-02] MEDS: lisinopriL 20 MG TAB PO SCH (08:23)
[2020-02-02] MEDS: CLOPIDOGREL BISULFATE 75 MG TAB PO SCH (08:23)
[2020-02-02] MEDS: INSULIN GLARGINE SOLOSTAR 100 UNITS/ML 3 ML PEN SC SCH (08:24)
[2020-02-02] MEDS: INSULIN ASPART 100 UNITS/ML 3 ML PEN SC SCH ×2 (08:28→12:43)
[2020-02-02] MEDS: BACLOFEN 10 MG TAB PO SCH (08:52)
--- NOTE | 2020-02-02 10:14 | Discharge Summary ---
Date of Service February 02, 2020 Admission HPI Per Admitting Provider 59 yo M with extensive vascular disease, PAF and recent weakness. He was recently hospitalized last month and went to [facility] for rehab. He was discharged last Wednesday 01/17, and had concerning vomiting at that time. Pt reported having some L arm weakness intermittently around this time. Over the weekend he continued to have L arm weakness and went to his PCP with these concerns. MRI outpatient was ordered and revealed a right frontoparietal infarct c/w a small acute to subacute infarction, extensive white matter disease, and multiple old bilateral lacunar infarcts. He is no longer nauseous, RUE weakness is present. He has no numbness. He appears to still have weakness. He denies SOB, chest pain or other symptoms at this time. I noticed he was urinating frequently in the ER, and I asked about the Flomax which we started as a new med on recent discharge. IPSS was 8 at that time. Per his he didn't receive it during the two weeks at [facility] and was not given a script for this at discharge recently. He is hungry. Admission Exam Per Admitting Provider CONSTITUTIONAL: WNWD, vitals as above, generally well-appearing EYES: EOMI bilaterally, pupils are round and equal bilaterally, normal conjunctivae, no scleral icterus ENT: external ear and nose normal, oropharynx clear RESPIRATORY: clear to auscultation bilaterally, no crackles, rales or wheezes, normal respiratory effort CARDIOVASCULAR: regular rate and rhythm, S1 and 2 heard with ULISES 3/6, no peripheral edema GASTROINTESTINAL: soft, nontender, nondistended MUSCULOSKELETAL: strength 5/5 throughout x for R arm-cannot extend forward (flexion and extension is intact 5/5 and 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 No facial palsy, no dysarthria. CN 2-12 grossly intact, no sensory deficit, normal cognition, normal speech PSYCHIATRIC: alert cooperative and oriented to person, place and time. Principal Diagnosis Acute cerebrovascular accident Right arm weakness Hypertension BPH Discharge Exam CONSTITUTIONAL: WNWD, vitals as above, generally well-appearing EYES: EOMI bilaterally, pupils are round and equal bilaterally, normal conjunctivae, no scleral icterus ENT: external ear and nose normal, oropharynx clear RESPIRATORY: clear to auscultation bilaterally, no crackles, rales or wheezes, normal respiratory effort CARDIOVASCULAR: regular rate and rhythm, S1 and 2 heard with ULISES 3/6, no peripheral edema GASTROINTESTINAL: soft, nontender, nondistended MUSCULOSKELETAL: strength 5/5 throughout x for R arm-cannot extend forward (flexion and extension is intact 5/5 and 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 No facial palsy, no dysarthria. CN 2-12 grossly intact, no sensory deficit, normal cognition, normal speech PSYCHIATRIC: alert cooperative and oriented to person, place and time. Discharge Data Allergies Allergy/AdvReac Type Severity Reaction Status Date / Time No Known Allergies Allergy Verified 01/22/20 17:33 Consultations 01/22/20 16:52 Consult Case Management - Discharge Planning Routine Consult Neurology Routine 01/22/20 17:11 ED Decision to Admit Stat 01/22/20 21:31 Consult Cardiology Routine Consult Case Management - Discharge Planning Routine Hospital Course (1) Acute cerebrovascular accident: (2) Right arm weakness: (3) HTN (hypertension): (4) BPH with obstruction/lower urinary tract symptoms: The patient is a 59-year-old man with extensive vascular disease and weakness. He was recently hospitalized last month and went to [facility] for rehab. When he was discharged from rehab he had concerning vomiting. He was given an antiemetic and sent home. After returning home he did experience some left arm weakness intermittently which was concerning to his as this was different than baseline. An outpatient MRI was ordered through his primary care doctor and revealed a right frontoparietal infarct consistent with a small acute to subacute infarction. Multiple old bilateral lacunar infarcts were seen. His nausea had resolved and his right upper weakness was persistent. He was sent to the ER by his primary care provider for further work-up and treatment a chest x- ray revealed no active disease in the chest. An EKG revealed sinus rhythm with no significant change. He has been compliant with Eliquis therapy and is also on aspirin and Plavix for secondary prophylaxis of stroke and treatment of atherosclerotic disease. Cardiology was consulted to discuss anticoagulation options. With now having another stroke despite being on Eliquis and after a lengthy discussion with the patient and his on the risks benefits and alternatives the decision was made to switch him to Coumadin. INR was titrated to goal 2-3. Neurology was consulted and notes most multiple vascular risk factors due to underlying diabetes dyslipidemia hypertension and a history of coronary artery bypass grafting. He is supported in the switch from Eliquis back to Coumadin as the Coumadin was the only change in while on it previously he had been stroke free. He continued to do well and physical therapy recommended returning back to rehab however this was denied. He is agreeable to going to a [facility] facility for [facility]hab as a transition to home. Ultimately he will need home health for INR checks at home after discharge from rehab facility. Management of INR was an issue for him in the past when he was getting monitored at the anticoagulation clinic. He continued to improve with improvement in right upper extremity strength during this hospitalization. He had no issues swallowing and was tolerating food without problems at discharge. On prior discharge she was started on tamsulosin which was not continued at [facility]. Therefore this was restarted on admission with subsequent improvement in urinary frequency. Continue to monitor IPSS score with primary care physician at hospital follow-up appointment. At time of discharge he was hemodynamically stable and afebrile and tolerating p.o. He was mentating and ambulating around his baseline and was sent to prison facility in stable condition with close primary care follow-up recommended after discharge. A COVID screening test was performed and was pending at time of discharge. This test was for placement in a facility and was not checked because of any symptoms of COVID or known exposures to a COVID positive person. Total Time Total Time Spent Total Time Spent (In Minutes): 60 Total Time Includes: Examination of the Patient, Discharge Planning, Medication Reconciliation and Communication With Other Providers Discharge Plan Discharge Items Patient Disposition: Transfer Correction Fac Reason For Visit: ACUTE STROKE,H/O AFIB Discharge Diagnosis: Acute stroke with history of stroke, type 2 diabetes, hypertension, severe aortic stenosis, CAD, osteomyelitis of great toe of right foot-chronic Condition on Discharge: Good Activity: As commented below Activity Comment: Will need PT and OT Non-emergency contact: Primary Care Provider Call non-emergency contact if: you have any medication questions and your symptoms worsen Follow-up/Referrals: Dereck Zaman, [Primary Care Provider] - Diet: Carb Consistent or DM2, Heart Healthy and Low Sodium (2gm) Addtl Attending Provider Instructions: Please take precaution to avoid falls He will need intense monitor for his INR (between 2-3) and dosing Coumadin accordingly and then at discharge from [facility], he will need Home Health for INR monitoring. Please make an appointment with your primary care physician within 1 week following discharge from the facility. It was a pleasure taking care of you! Please call if you have any questions or problems. You can reach a [facility] Hospitalist on duty at [facility] 24 hours a day by calling [phone]. Take care of yourself. Leda George, [facility] Center[facility] Pending Studies at Discharge: Yes Studies:: COVID-19 screening pending at time of discharge. Stand-Alone Forms: My [facility] Skilled Items Patient informed of condition?: Yes DNR: No Discharge Level of Care: Skilled Communicable Disease: No Discharge Prognosis: Stable Lines: None Urinary Catheter: No Medications and DC Order Prescriptions: New tamsulosin 0.4 mg Capsule 0.4 mg PO HS 30 Days Qty: 30 RF: 0 warfarin [Coumadin] 5 mg tablet 5 mg PO DAILY Qty: 30 RF: 0 Continued carvedilol 12.5 mg tablet 12.5 mg PO BID RF: 0 insulin glargine [Lantus U-100 Insulin] 100 unit/mL solution 18 units SQ AMPM RF: 0 clopidogrel [Plavix] 75 mg tablet 75 mg PO QAM RF: 0 atorvastatin [Lipitor] 80 mg tablet 80 mg PO QPM RF: 0 metformin 1,000 mg tablet 1,000 mg PO BID RF: 0 baclofen 5 mg tablet 5 mg PO QAM RF: 0 insulin aspart U-100 [Novolog U-100 Insulin aspart] 100 unit/mL Solution 10 unit SUBCUT AC RF: 0 lisinopril 20 mg Tablet 20 mg PO QAM Qty: 30 RF: 1 nitroglycerin 0.4 mg tablet, sublingual 0.4 mg sublingual DIRECTED PRN (Reason: Chest Pain) RF: 0 amlodipine [Norvasc] 5 mg tablet 5 mg PO QAM RF: 0 aspirin [Aspir-81] 81 mg tablet,delayed release (DR/EC) 81 mg PO QAM RF: 0 Saccharomyces boulardii [Florastor] 250 mg capsule 250 mg PO QAM RF: 0 clindamycin HCl [Cleocin HCl] 150 mg capsule 300 mg PO TID RF: 0 ondansetron 4 mg tablet,disintegrating 4 mg PO Q4H PRN (Reason: Nausea) RF: 0 Discontinued Eliquis 5 mg tablet 5 mg PO BID RF: 0 Discharge Orders: Discharge Order (Routine); Ordered 02/02/20 Ordered By: Leda George Admission Data Admit Date/Time: 01/22/20 17:28 Attending Provider: Leda George Admit Provider: Leda George Primary Care Provider: Dereck Zaman Other Providers: [facility] ; [facility] ; Garrick Ansari ; Leda George ; Gary Kay ; Ruba Dee [facility]
== END 2020-02-02 13:30 | DRG 65 ==
LOC: ED 16:07 → SUATTDRO 17:28 → 2N 17:28 → 2W 22:00

== ENCOUNTER 2020-03-18 11:34 | Inpatient (IN) ==
[2020-03-18] MEDS ORDERED: ONDANSETRON INJ 2 MG/ML 2 ML VIAL IV STA (12:07)
[2020-03-18] MEDS ORDERED: SODIUM CHLORIDE 0.9% 500 ML IV SCH (12:15)
--- NOTE | 2020-03-18 12:15 | Emergency Department Note ---
Impression & Plan Nausea & vomiting, Aspiration into lower respiratory tract, Hypomagnesemia ED Provider Note Provider: Yannick Zepeda MD DATE OF SERVICE:03/18/2020 CHIEF COMPLAINT: Nausea and vomiting HISTORY OF PRESENT ILLNESS: Patient is a 59-year-old male with history of aortic stenosis, atrial fibrillation, CAD/bypass, CVA the end of January with type 2 diabetes currently maintained on Coumadin presenting today via ambulance from home due to vomiting. Evidently the patient after discharge was at [facility] for approximately 3 weeks and then went home. He had a stroke at the end of January and has residual right-sided deficits from this. Occupational Therapy visited the patient today and reported supposedly he was not quite acting like himself and had nausea and vomiting in the came the ambulance here. states that with [facility] yesterday and he woke this morning. They are getting ready as they have home PT and OT visit and after breakfast he became nauseous and vomited approximately 2-3 times. No blood reported. No diarrhea. Patient denies any pain in his chest or abdomen or in his head. No trauma reported. No fever or URI symptoms reported. reports she took his blood sugar it was only in the 80s or 90s and she thought this was low so gave him some icing and then had a neighbor bring some orange juice. Patient states he received his morning medications of insulin but unsure if he may have vomited some up. Patient states he otherwise feels well and has residual particular right lower leg deficits that are at baseline. No difficulty with speech or aphasia significant reported by him or the . also agrees that he is moving things at his new baseline since the stroke approximately 6 to 8 weeks ago. Denies sick exposure or contact. REVIEW OF SYSTEMS: A total of 10 review of systems was obtained and negative except as stated above in the HPI. PAST MEDICAL HISTORY: As noted above MEDICATIONS: Reviewed home medication list which includes warfarin and insulin as well as metformin SOCIAL HISTORY: Lives at home with PHYSICAL EXAM: GENERAL: alert and oriented in no acute distress on stretcher Head: normocephalic and atraumatic EYES: No injection, discharge or icterus. NECK: Trachea midline. Supple. ENT: Mucous membranes pink and moist. LUNGS: Airway patent. No retractions. Breath sounds clear HEART: Regular rate and rhythm. Diffuse aortic systolic murmur appreciated with radiation to the carotids. No chest wall tenderness ABDOMEN: Soft and non-tender, without guarding or rebound. SKIN: Acyanotic, warm, dry, without rashes EXTREMITIES: Without swelling or tenderness. The right lower leg is in a foot drop brace below the knee. NEUROLOGICAL: No aphasia. No facial droop or slurred speech. Patient has some mild generally diminished weakness in all extremities but limited movement and strength in the right lower extremity particularly below the knee. Flexes the right leg fairly well at the thigh. EK beats. Normal sinus rhythm. No PVC or PAC. Some slight ST elevation in V1 and V2 as well as V3 that in comparison to previous film from January 23 of this year is unchanged. Patient states he has a normally abnormal EKG. This appears similar with the ST segments however with nonspecific V6 T wave inversions noted today new from previous. aVL T wave version appears stable. CONTINUOUS CARDIAC MONITORING: was ordered and showed a heart rate of 76 bpm in normal sinus rhythm normal sinus rhythm Patient's laboratory studies and imaging reviewed. Differential includes Infection, dehydration, metabolic abnormality, hypo/hyperglycemia, electrolyte disturbance, anemia, hypoxia, cardiac sources, intracerebral event, toxicologic, neurologic, as well as other pathologies. IMPRESSION/MEDICAL DECISION MAKING: Patient presents with nausea vomiting several times this morning and then questi onably some mild generalized weakness but nothing focal. On Coumadin. No sick contacts or trauma reported. Patient denies any abdominal pain is benign abdomen. Given his significant history of any use of anticoagulation a CT of the head is complete exclude intracranial abnormality because nausea vomiting as well as a CT abdomen pelvis. Basic labs were obtained and given some fluid hydration and Zofran here initially. EKG is abnormal but appears minimally changed from previous and is not having active chest pain symptoms and I doubt this represents acute ACS. PE unlikely given anticoagulation. I doubt dissection of the aorta at this time given his lack of significant pain symptoms. Doubt acute abdominal perforation given his lack of pain symptoms but blood work to help exclude hepatitis and pancreatitis was sent. IV team was utilized for IV access. WBC count of 11 is nonspecific. Anemia is somewhat improved compared to previous. Renal function stable with only noted hypomagnesemia. No lipase elevation I doubt pancreatitis. TSH within normal limits. Urinalysis without signs of infection. Reevaluation after returning from CT had nausea and vomited again. Given a small amount of Reglan. CT the head likely without acute intracranial abnormality per radiology. CT the abdomen pelvis without acute intra-abdominal process noting some moderate constipation. They question some airspace consolidation of the right lung base for possible pneumonia or aspiration. Patient did vomit several times today and could be a consideration. Again white blood cell count of 11 nonspecific but no fevers reported. Not significantly hypoxic. Discussed with the patient and findings. I discussed with them they wish further observation in the hospital which I believe is reasonable. Discussed with the hospitalist team and we will wanted a dose of Unasyn given. IV magnesium supplementation was ordered. They will evaluate for further observation here. DIAGNOSIS: Nausea & vomiting, hypomagnesemia, aspiration DISPOSITION: Hospitalist will evaluate Patient was agreeable with this plan. Past Med/Surg History Medical History (Updated 03/18/20 @ 16:27 by Yannick Zepeda M.D.) Aortic valve stenosis CAD (coronary artery disease) Carotid stenosis Dyslipidemia Hemiplegia affecting right dominant side HTN (hypertension) Hypomagnesemia Monoplegia affecting right dominant side Obesity Proliferative diabetic retinopathy Retinal edema Right foot drop Status post cerebrovascular accident Status post myocardial infarction Superior mesenteric artery stenosis Type 2 diabetes mellitus Surgical History Hx of vitrectomy S/P angioplasty with stent S/P CABG x 3 S/P PTCA (percutaneous transluminal coronary angioplasty) Family History Father Heart disease Social History Smoking Status: Never smoker Tobacco Type: Cigarettes Second Hand Exposure: No; Hx Alcohol Use: No Hx Substance Use: No Preferred Language: Citizen Of [place] Communication Ability: Effective Visual Impairment: No Limitations Hearing Ability: Normal [employer] Manager Required: No Beliefs That Will Affect Care: None marital status: Current Living Situation: Spouse Current Living Situation Comment: own home current occupational status: disabled Feels Safe at Home: Yes Assistive Devices: Brace/Splint/Immobilizer Allergies Allergies Allergy/AdvReac Type Severity Reaction Status Date / Time No Known Allergies Allergy Verified 03/18/20 12:31 Home Meds Home Medications Medication Instructions Recorded Confirmed atorvastatin 80 mg tablet 80 mg PO HS 07/10/18 03/18/20 baclofen 5 mg tablet 5 mg PO QAM tab 07/10/18 03/18/20 carvedilol 12.5 mg tablet 12.5 mg PO BID 07/10/18 03/18/20 clopidogrel 75 mg tablet 75 mg PO QAM 07/10/18 03/18/20 insulin glargine 100 unit/mL 18 units SQ AMPM ml 07/10/18 03/18/20 subcutaneous solution metformin 1,000 mg tablet 1,000 mg PO BID 07/10/18 03/18/20 insulin aspart U-100 [Novolog 10 unit SUBCUT AC 09/08/18 03/18/20 U-100 Insulin aspart] nitroglycerin 0.4 mg SUBLINGUAL DIRECTED PRN 08/09/19 03/18/20 Saccharomyces boulardii [Florastor] 250 mg PO QAM 01/22/20 03/18/20 amlodipine [Norvasc] 5 mg PO QAM 01/22/20 03/18/20 clindamycin HCl [Cleocin HCl] 300 mg PO TID 01/22/20 03/18/20 ondansetron 4 mg PO Q4H PRN 01/22/20 03/18/20 aspirin [Aspir-81] 81 mg PO QAM 03/18/20 03/18/20 warfarin 5 mg PO UD 03/18/20 03/18/20 Previous Rx's Medication Instructions Recorded lisinopril 20 mg PO QAM #30 tab 01/01/20 Results & Data (ED) Vital Signs Vital Signs - 24 hr 03/18/20 11:31 03/18/20 11:40 03/18/20 11:41 Temperature 36.7 C Temperature Source Oral Pulse Rate 74 75 Pulse Rate from SpO2 Sensor 74 Pulse Rhythm Regular Pulse Strength Normal Respiratory Rate 16 17 16 Respiratory Effort / Characteristics Non-Labored Non-Labored Respiratory Depth Normal Normal Respiratory Pattern Regular Regular Blood Pressure 157/72 H 157/72 H Blood Pressure Mean 106 100 Blood Pressure Position Lying Pulse Oximetry 98 97 98 Oxygen Delivery Method Room Air Room Air Sepsis Recent Fever Within 48 Hours No Sepsis New/Unexplained Change in Mental Status N/A Sepsis Action Taken by Nursing No Action Required 03/18/20 11:42 03/18/20 12:00 03/18/20 12:07 Temperature Temperature Source Pulse Rate 74 77 72 Pulse Rate from SpO2 Sensor 74 77 67 Pulse Rhythm Pulse Strength Respiratory Rate 19 18 16 Respiratory Effort / Characteristics Respiratory Depth Respiratory Pattern Blood Pressure 153/65 H 153/65 H Blood Pressure Mean 95 95 Blood Pressure Position Pulse Oximetry 97 99 97 Oxygen Delivery Method Sepsis Recent Fever Within 48 Hours Sepsis New/Unexplained Change in Mental Status Sepsis Action Taken by Nursing 03/18/20 12:30 03/18/20 13:00 03/18/20 13:30 Temperature Temperature Source Pulse Rate 81 74 76 Pulse Rate from SpO2 Sensor 79 74 77 Pulse Rhythm Pulse Strength Respiratory Rate 20 21 18 Respiratory Effort / Characteristics Respiratory Depth Respiratory Pattern Blood Pressure 161/83 H Blood Pressure Mean 120 Blood Pressure Position Pulse Oximetry 98 96 96 Oxygen Delivery Method Sepsis Recent Fever Within 48 Hours Sepsis New/Unexplained Change in Mental Status Sepsis Action Taken by Nursing 03/18/20 14:00 03/18/20 14:26 03/18/20 14:30 Temperature Temperature Source Pulse Rate 90 85 86 Pulse Rate from SpO2 Sensor 90 85 85 Pulse Rhythm Pulse Strength Respiratory Rate 20 18 16 Respiratory Effort / Characteristics Respiratory Depth Respiratory Pattern Blood Pressure 153/92 H 166/79 H Blood Pressure Mean 105 93 Blood Pressure Position Pulse Oximetry 96 98 96 Oxygen Delivery Method Sepsis Recent Fever Within 48 Hours Sepsis New/Unexplained Change in Mental Status Sepsis Action Taken by Nursing 03/18/20 15:00 Temperature Temperature Source Pulse Rate 89 Pulse Rate from SpO2 Sensor 84 Pulse Rhythm Pulse Strength Respiratory Rate 17 Respiratory Effort / Characteristics Respiratory Depth Respiratory Pattern Blood Pressure 140/106 H Blood Pressure Mean 118 Blood Pressure Position Pulse Oximetry 97 Oxygen Delivery Method Sepsis Recent Fever Within 48 Hours Sepsis New/Unexplained Change in Mental Status Sepsis Action Taken by Nursing Laboratory Data Result diagrams: 03/18/20 13:09 03/18/20 13:09 Lab Results 03/18/20 03/18/20 03/18/20 Range/Units 13:09 13:09 13:09 WBC 11.08 H (4.8-10.8) K/uL RBC 5.37 (4.7-6.1) M/uL Hgb 13.6 L (14.0-18.0) g/dL Hct 41.5 L (42-52) % MCV 77.3 L (80-100) fL MCH 25.3 (25-34) pg MCHC 32.8 (32-36) g/dL RDW Std Deviation 41.4 (36.4-46.3) fL RDW Coeff of Caroline 14.8 H (11.5-14.5) % Plt Count 267 (130-400) K/uL MPV 10.5 H (7.4-10.4) fL Immature Gran % (Auto) 0.2 % Neut % (Auto) 81.4 % Lymph % (Auto) 15.0 % Sevier % (Auto) 2.7 % Eos % (Auto) 0.5 % Baso % (Auto) 0.2 % Neut # (Auto) 9.02 H (1.4-6.5) K/uL Lymph # (Auto) 1.66 (1.2-3.4) K/uL Sevier # (Auto) 0.30 (0.11-0.59) K/uL Eos # (Auto) 0.06 (0-0.5) K/uL Baso # (Auto) 0.02 (0-0.2) K/uL Immature Gran # (Auto) 0.02 (0.00-0.02) K/uL PT 25.1 H (9.0-12.0) Seconds INR 2.5 H (0.9-1.1) Sodium 139 (136-145) mmol/L Potassium 4.0 (3.5-5.1) mmol/L Chloride 105 (98-107) mmol/L Carbon Dioxide 29 (21-32) mmol/L Anion Gap 5.0 (3-11) BUN 21 H (7-18) mg/dl Creatinine 0.90 (0.6-1.4) mg/dl Est Cr Clr Drug Dosing 100.7 ml/min Est GFR ( Amer) 106.5 Est GFR (Non-Af Amer) 91.9 BUN/Creatinine Ratio 23.7 H (10-20) Glucose 93 (70-99) mg/dl Calcium 9.8 (8.5-10.1) mg/dl Magnesium 1.4 L (1.8-2.4) mg/dl Total Bilirubin 0.4 (0.2-1) mg/dl AST 13 L (15-37) U/L ALT 18 (12-78) U/L Alkaline Phosphatase 67 (45-117) U/L Troponin I < 0.015 (0-0.045) ng/ml Total Protein 7.8 (6.4-8.2) gm/dl Albumin 3.5 (3.4-5.0) gm/dl Globulin 4.3 H (2.5-4.0) gm/dl Albumin/Globulin Ratio 0.8 L (0.9-2) Lipase (73-393) U/L TSH 1.180 (0.300-4.500) uIu/ml Urine Color Urine Appearance (Clear) Urine pH (4.5-7.5) Ur Specific Krebs (1.000-1.030) Urine Protein (Negative) Urine Glucose (UA) (Negative) Urine Ketones (Negative) Urine Blood (Negative) Urine Nitrite (Negative) Urine Bilirubin (Negative) Urine Urobilinogen (Negative) Ur Leukocyte Esterase (Negative) 03/18/20 03/18/20 Range/Units 13:09 13:21 WBC (4.8-10.8) K/uL RBC (4.7-6.1) M/uL Hgb (14.0-18.0) g/dL Hct (42-52) % MCV (80-100) fL MCH (25-34) pg MCHC (32-36) g/dL RDW Std Deviation (36.4-46.3) fL RDW Coeff of Caroline (11.5-14.5) % Plt Count (130-400) K/uL MPV (7.4-10.4) fL Immature Gran % (Auto) % Neut % (Auto) % Lymph % (Auto) % Sevier % (Auto) % Eos % (Auto) % Baso % (Auto) % Neut # (Auto) (1.4-6.5) K/uL Lymph # (Auto) (1.2-3.4) K/uL Sevier # (Auto) (0.11-0.59) K/uL Eos # (Auto) (0-0.5) K/uL Baso # (Auto) (0-0.2) K/uL Immature Gran # (Auto) (0.00-0.02) K/uL PT (9.0-12.0) Seconds INR (0.9-1.1) Sodium (136-145) mmol/L Potassium (3.5-5.1) mmol/L Chloride (98-107) mmol/L Carbon Dioxide (21-32) mmol/L Anion Gap (3-11) BUN (7-18) mg/dl Creatinine (0.6-1.4) mg/dl Est Cr Clr Drug Dosing ml/min Est GFR ( Amer) Est GFR (Non-Af Amer) BUN/Creatinine Ratio (10-20) Glucose (70-99) mg/dl Calcium (8.5-10.1) mg/dl Magnesium (1.8-2.4) mg/dl Total Bilirubin (0.2-1) mg/dl AST (15-37) U/L ALT (12-78) U/L Alkaline Phosphatase (45-117) U/L Troponin I (0-0.045) ng/ml Total Protein (6.4-8.2) gm/dl Albumin (3.4-5.0) gm/dl Globulin (2.5-4.0) gm/dl Albumin/Globulin Ratio (0.9-2) Lipase 42 L (73-393) U/L TSH (0.300-4.500) uIu/ml Urine Color Yellow Urine Appearance Clear (Clear) Urine pH 5.0 (4.5-7.5) Ur Specific Krebs 1.023 (1.000-1.030) Urine Protein Negative (Negative) Urine Glucose (UA) Negative (Negative) Urine Ketones Trace H (Negative) Urine Blood Negative (Negative) Urine Nitrite Negative (Negative) Urine Bilirubin Negative (Negative) Urine Urobilinogen Negative (Negative) Ur Leukocyte Esterase Negative (Negative) Administered Medications Discontinued Medications Sodium Chloride (Nss) 500 mls @ 999 mls/hr IV .Q31M SUMA Stop: 03/18/20 12:45 Last Infusion: 03/18/20 13:38 Dose: 0 mls/hr Documented by: [id number] Admin: 03/18/20 13:01 Dose: 999 mls/hr Documented by: [id number] Ioversol (Ioversol 100ml) 94 ml IV ONCE ONE Stop: 03/18/20 13:47 Last Admin: 03/18/20 13:46 Dose: 94 ml Documented by: [id number] Metoclopramide HCl (Metoclopramide Hcl Inj 5 Mg/Ml 2 Ml Vial) 5 mg IV ONE ONE Stop: 03/18/20 14:03 Last Admin: 03/18/20 14:27 Dose: 5 mg Documented by: [id number] Ondansetron HCl (Ondansetron Inj 2 Mg/Ml 2 Ml Vial) 4 mg IV NOW STA Stop: 03/18/20 12:08 Last Admin: 03/18/20 13:00 Dose: 4 mg Documented by: [id number] Discharge Plan Visit Data Chief Complaint: Weakness Stated Complaint: Vomiting/Weakness ED Provider: Yannick Zepeda Discharge Problem: Nausea & vomiting, Aspiration into lower respiratory tract, Hypomagnesemia Forms Stand Alone Forms: My [facility] Prescriptions Prescriptions: No Action carvedilol 12.5 mg tablet 12.5 mg PO BID RF: 0 insulin glargine [Lantus U-100 Insulin] 100 unit/mL solution 18 units SQ AMPM RF: 0 clopidogrel [Plavix] 75 mg tablet 75 mg PO QAM RF: 0 atorvastatin [Lipitor] 80 mg tablet 80 mg PO HS RF: 0 metformin 1,000 mg tablet 1,000 mg PO BID RF: 0 baclofen 5 mg tablet 5 mg PO QAM RF: 0 insulin aspart U-100 [Novolog U-100 Insulin aspart] 100 unit/mL Solution 10 unit SUBCUT AC RF: 0 lisinopril 20 mg Tablet 20 mg PO QAM Qty: 30 RF: 1 nitroglycerin 0.4 mg tablet, sublingual 0.4 mg sublingual DIRECTED PRN (Reason: Chest Pain) RF: 0 amlodipine [Norvasc] 5 mg tablet 5 mg PO QAM RF: 0 Saccharomyces boulardii [Florastor] 250 mg capsule 250 mg PO QAM RF: 0 clindamycin HCl [Cleocin HCl] 150 mg capsule 300 mg PO TID RF: 0 ondansetron 4 mg tablet,disintegrating 4 mg PO Q4H PRN (Reason: Nausea) RF: 0 aspirin [Aspir-81] 81 mg Tablet,Delayed Release (Dr/Ec) 81 mg PO QAM RF: 0 warfarin 5 mg tablet 5 mg PO UD RF: 0 Discharge Problem: Nausea & vomiting Qualifiers: Vomiting type: unspecified Vomiting Intractability: non-intractable Qualified Code(s): R11.2 - Nausea with vomiting, unspecified Aspiration into lower respiratory tract Qualifiers: Encounter type: initial encounter Qualified Code(s): T17.800A - Unspecified foreign body in other parts of respiratory tract causing asphyxiation, initial encounter
--- NOTE | 2020-03-18 13:09 | XRay Report ---
XR chest 1V portable CLINICAL HISTORY: weakness COMPARISON STUDY: Chest radiograph January 22, 2020. FINDINGS: Lung volumes are diminished. This is unchanged. There is no pneumothorax or pleural effusio n. There is no consolidation or evidence for pulmonary edema. There are median sternotomy wires. Medi astinal surgical clips are noted. Mild cardiomegaly is unchanged. The appearance of the chest is unch anged. IMPRESSION: No acute cardiopulmonary findings. No change in appearance of the chest. ACT 112: Negative or not required by law. Electronically signed by: Pal Blunt M.D. 03/18/2020 1:07 PM
[2020-03-18 13:22] LABS: Basophils # (auto) 0.02 K/uL (0-0.2); Basophils % (auto) 0.2 %; Eosinophils # (auto) 0.06 K/uL (0-0.5); Eosinophils % (auto) 0.5 %; Hematocrit (blood only) 41.5 % (42-52); Hemoglobin 13.6 g/dL (14.0-18.0); Immature Granulocytes # (auto) 0.02 K/uL (0.00-0.02); Immature Granulocytes % (auto) 0.2 %; Lymphocytes # (auto) 1.66 K/uL (1.2-3.4); Mean Corpuscular Hemoglobin 25.3 pg (25-34); Mean Corpuscular Hgb Conc 32.8 g/dL (32-36); Mean Corpuscular Volume 77.3 fL (80-100); Mean Platelet Volume 10.5 fL (7.4-10.4); Monocytes % (auto) 2.7 %; Neutrophils # (auto) 9.02 K/uL (1.4-6.5); Neutrophils % (auto) 81.4 %; Platelet Count 267 K/uL (130-400); RDW Coefficient of Variation 14.8 % (11.5-14.5); RDW Standard Deviation 41.4 fL (36.4-46.3); Red Blood Count 5.37 M/uL (4.7-6.1); White Blood Count 11.08 K/uL (4.8-10.8)
[2020-03-18 13:38] LABS: Appearance Urine Clear (Clear); Bilirubin Urine Negative (Negative); Blood Urine Negative (Negative); Color Urine Yellow; Glucose Urine UA Negative (Negative); Ketones Urine Trace (Negative); Leukocyte Esterase Urine Negative (Negative); Nitrite Urine Negative (Negative); Protein Urine Negative (Negative); Specific Gravity Urine 1.023 (1.000-1.030); Urobilinogen Urine Negative (Negative)
[2020-03-18 13:38] LABS: Alanine Aminotransferase 18 U/L (12-78); Albumin Level 3.5 gm/dl (3.4-5.0); Aspartate Aminotransferase 13 U/L (15-37); BUN Creatinine Ratio 23.7 (10-20); Blood Urea Nitrogen 21 mg/dl (7-18); Calcium 9.8 mg/dl (8.5-10.1); Carbon Dioxide 29 mmol/L (21-32); Chloride 105 mmol/L (98-107); Creatinine Clr Calc Pharmacy 100.7 ml/min; Est GFR (African American) 106.5; Est GFR (Non-African American) 91.9; Glucose 93 mg/dl (70-99); Magnesium 1.4 mg/dl (1.8-2.4); Sodium 139 mmol/L (136-145)
[2020-03-18 13:39] LABS: INR 2.5 (0.9-1.1); Prothrombin Time 25.1 Seconds (9.0-12.0)
[2020-03-18] MEDS ORDERED: IOVERSOL 100ml IV ONE (13:46)
[2020-03-18 13:49] LABS: Albumin Globulin Ratio 0.8 (0.9-2); Alkaline Phosphatase 67 U/L (45-117); Bilirubin,Total 0.4 mg/dl (0.2-1); Globulin 4.3 gm/dl (2.5-4.0); Total Protein 7.8 gm/dl (6.4-8.2); Troponin I < 0.015 ng/ml (0-0.045)
[2020-03-18] MEDS ORDERED: METOCLOPRAMIDE HCL INJ 5 MG/ML 2 ML VIAL IV ONE (14:02)
--- NOTE | 2020-03-18 14:17 | CT Scan Report ---
CT SCAN OF THE ABDOMEN AND PELVIS WITH IV CONTRAST CLINICAL HISTORY: Nausea and vomiting. COMPARISON STUDY: Abdominal CT dated 09/08/2018. TECHNIQUE: Following the IV administration of 94 cc of Optiray 320, CT scan of the abdomen and pelvi s is performed from the lung bases to the proximal femora. Images are reviewed in the axial, sagittal , and coronal planes. IV contrast was administered without complication. A dose lowering technique wa s utilized adhering to the principles of ALARA. The examination is degraded by motion artifact, as we ll as by streak artifact from the arms which could not be elevated above the abdomen. FINDINGS: Lung bases: The patient is status post midline sternotomy. The heart is enlarged and without pericard ial effusion. The coronary arteries are densely calcified. There is a small hiatal hernia. Gynecomast ia is noted. Evaluation of the lung parenchyma is degraded by motion artifact. There is patchy airspa ce consolidation in the right middle and right lower lobes. No pleural effusion is identified. There is a small to moderate hiatal hernia. Liver: The contrast-enhanced liver is normal in size, contour, and attenuation. There is no intrahepa tic biliary ductal dilatation. The hepatic veins and portal veins are patent. Gallbladder: Unremarkable. Spleen: Normal in size and attenuation. Pancreas: Unremarkable. Adrenal glands: Thickening of the adrenal glands is similar to previous. Kidneys: The contrast enhanced kidneys are normal in size and without hydronephrosis. The kidneys enh ance symmetrically. A 2.4 cm cyst is seen in the left upper pole. Abdominal vasculature: The abdominal aorta is normal in course and caliber noting moderate to advance d atherosclerotic calcification. Bowel: There is moderate constipation. No bowel obstruction is seen. The appendix is not clearly vis ualized. Peritoneum: There is no intraperitoneal free air or abdominal ascites. Lymphadenopathy: None. Pelvic viscera: The prostate gland is enlarged and heterogeneous noting median lobe hypertrophy. The bladder wall is thickened and trabeculated indicating chronic outlet obstruction. Skeletal structures: The skeletal structures are osteopenic. Moderate lumbosacral spondylosis is obse rved. No lytic or blastic lesions are seen. IMPRESSION: 1. Streak and motion compromised examination. 2. There is patchy airspace consolidation at the right lung base. Correlate clinically for evidence o f pneumonia/aspiration pneumonitis. 3. No acute infectious or inflammatory findings are seen in the abdomen or pelvis. 4. Moderate constipation. 5. Cardiomegaly and hiatal hernia. 6. Additional findings as above. ACT 112: Negative or not required by law. Electronically signed by: Donny eFrnando M.D. 03/18/2020 2:15 PM
--- NOTE | 2020-03-18 14:18 | CT Scan Report ---
HEAD CT NONCONTRAST CT DOSE: 1666.80 mGy.cm HISTORY: nausea, vomiting TECHNIQUE: Multiaxial CT images of the head were performed without the use of intravenous contrast. A utomated exposure control was utilized for this study. A dose lowering technique was utilized adheri ng to the principles of ALARA. Comparison: Head CT 12/28/2019. Findings: Small retention cyst within the right maxillary sinus, unchanged. The mastoid air cells are clear. The calvarium and skull base are intact. There is no mass, hematoma, midline shift, acute inf arct. White matter hypodensity is nonspecific but suggestive of microvascular ischemic change. The ve ntricles and sulci demonstrate mild age-related involutional changes. Old small lacunar infarcts seen within the right cerebellar hemisphere, sarabjit, bilateral basal ganglia. This remains unchanged. Impression: No significant change compared to the prior study. No acute intracranial abnormality. ACT 112: Negative or not required by law. Electronically signed by: Chris Bowens M.D. 03/18/2020 2:16 PM
--- NOTE | 2020-03-18 14:21 | Electrocardiogram Report ---
Test Reason : Blood Pressure : / mmHG Vent. Rate : 073 BPM Atrial Rate : 073 BPM P-R Int : 144 ms QRS Dur : 088 ms QT Int : 396 ms P-R-T Axes : 057 024 121 degrees QTc Int : 436 ms Normal sinus rhythm Possible Left atrial enlargement Inferior infarct (cited on or before 13-OCT-2006) Anterior infarct (cited on or before 13-OCT-2006) Abnormal ECG When compared with ECG of 24-JAN-2020 06:56, No significant change was found Confirmed by Giorgio Aden ([id number]) on 03/18/2020 2:21:09 PM Referred By: REFERRED SELF Confirmed By:Giorgio Aden
[2020-03-18] MEDS ORDERED: AMPICILLIN/SULBACTAM SOD 3,000 MG in 0.9 % SODIUM CHLORIDE 100 ML IV STA (15:21)
--- NOTE | 2020-03-18 17:13 | History & Physical Report ---
Date of Service March 18, 2020 Assessment & Plan (1) Nausea & vomiting: -Admit to [facility] with telemetry -Patient presenting from home with reports of nausea and 3 episodes of vomiting. Symptoms now resolved. -CT ABD/pelvis unremarkable for acute abdominal findings -Continue supportive care with PRN antiemetics -If symptoms return or persist, consider GI evaluation -Constipation noted on CT ABD/pelvis - ? If this is contributing (2) Aspiration into lower respiratory tract: -CT ABD/pelvis showing signs of possible right basilar aspiration pneumonitis/pneumonia -Saturating well on room air, no respiratory distress -S/p IV Unasyn in the ED, will continue with -Aspiration likely secondary to vomiting however will have speech evaluate the patient (3) Leukocytosis: -Mild, WBC 11 K -Does not appear septic, afebrile -Unasyn as above for aspiration -Check blood cultures for completeness -UA clean (4) Constipation: -Moderate constipation noted on CT ABD/pelvis -Start bowel regimen with MiraLAX and Colace (5) Hypomagnesemia: -MG +1.4 -Received IV supplementation in the ED -Follow-up MG+ level in the morning (6) Status post cerebrovascular accident: -With residual RLE monoplegia -On triple therapy with aspirin, Plavix, Coumadin -INR 2.5 -Continue statin (7) Type 2 diabetes mellitus: -Hgb A1c 7.0 12/2019 -Glucose noted to be 93 on labs, will reduce Lantus to 10 units twice daily -NovoLog per protocol while hospitalized (8) CAD (coronary artery disease): -Appears stable, no reports of chest pain -Continue aspirin, statin, beta-josé (9) HTN (hypertension): -Continue amlodipine, lisinopril, carvedilol (10) DVT prophylaxis: -On Coumadin, INR 2.5 History of Present Illness Chief Complaint: Nausea and vomiting Primary Care Provider: Dereck Zaman DO 59-year-old male with PMH DM type II, CAD, CVA with residual RLE weakness, severe aortic stenosis, and other problems listed below who presents to the ED for evaluation of nausea and vomiting. Patient recently admitted to [facility] 01/21 through 02/01 for management of acute to subacute CVA. During admission, patient's Eliquis was switched to Coumadin. Patient was discharged to [facility] for rehab. Patient has been home for the past couple weeks. Reports he has been participating in home PT, OT, speech therapy. This morning, patient reports he got ready and had breakfast and his pills in preparation for therapy to come today. Shortly before therapy arrived, patient developed nausea and vomiting. Reports 3 episodes of vomiting. Describes emesis is bilious in nature. checked his blood sugar and it was found to be 80 which she reports is low for him. She gave him icing and orange juice. She called home health nursing who advised for the patient come to the ED for further evaluation. Patient reports he is currently feeling well. Nausea and vomiting is subsequently resolved. Denies any other recent illnesses, fevers, chills. Denies abdominal pain, diarrhea. Normal bowel movement yesterday. No chest pain or shortness of breath. Denies lightheadedness, dizziness, diaphoresis, syncopal events. No urinary symptoms. In the ED, labs show WBC 11 K, MG +1.4. CT ABD/pelvis negative for acute abdominal findings however suggest possible right basilar aspiration pneumonitis. Patient is hemodynamically stable, saturating well on room air. Patient received IVF, IV Zofran, IV Reglan, IV magnesium replacement, IV Unasyn. Allergies Allergy/AdvReac Type Severity Reaction Status Date / Time No Known Allergies Allergy Verified 03/18/20 12:31 Home Medications Home Medications Medication Instructions Recorded Confirmed Type atorvastatin 80 mg tablet 80 mg PO HS 07/10/18 03/18/20 History baclofen 5 mg tablet 5 mg PO QAM tab 07/10/18 03/18/20 History carvedilol 12.5 mg tablet 12.5 mg PO BID 07/10/18 03/18/20 History clopidogrel 75 mg tablet 75 mg PO QAM 07/10/18 03/18/20 History insulin glargine 100 unit/mL 18 units SQ AMPM ml 07/10/18 03/18/20 History subcutaneous solution metformin 1,000 mg tablet 1,000 mg PO BID 07/10/18 03/18/20 History insulin aspart U-100 [Novolog 10 unit SUBCUT AC 09/08/18 03/18/20 History U-100 Insulin aspart] nitroglycerin 0.4 mg SUBLINGUAL DIRECTED PRN 08/09/19 03/18/20 History lisinopril 20 mg PO QAM #30 tab 01/01/20 03/18/20 Rx Saccharomyces boulardii [Florastor] 250 mg PO QAM 01/22/20 03/18/20 History amlodipine [Norvasc] 5 mg PO QAM 01/22/20 03/18/20 History ondansetron 4 mg PO Q4H PRN 01/22/20 03/18/20 History aspirin [Aspir-81] 81 mg PO QAM 03/18/20 03/18/20 History tamsulosin 0.4 mg PO HS 03/18/20 03/18/20 History warfarin 5 mg PO SUTUTHSA 03/18/20 03/18/20 History warfarin 7.5 mg PO MOWEFR 03/18/20 03/18/20 History 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" Aortic valve stenosis BPH with obstruction/lower urinary tract symptoms CAD (coronary artery disease) Carotid stenosis Diabetic peripheral neuropathy associated with type 2 diabetes mellitus Dyslipidemia Hemiplegia affecting right dominant side History of pancreatitis HTN (hypertension) Hypomagnesemia Monoplegia affecting right dominant side Obesity Osteomyelitis of great toe of right foot Proliferative diabetic retinopathy Retinal edema Right foot drop Status post cerebrovascular accident Status post myocardial infarction Superior mesenteric artery stenosis Type 2 diabetes mellitus Surgical History Hx of vitrectomy S/P angioplasty with stent S/P CABG x 3 S/P PTCA (percutaneous transluminal coronary angioplasty) Family History Father Heart disease Social History Smoking Status: Never smoker Tobacco Type: Cigarettes Second Hand Exposure: No; Do You Dip or Chew Tobacco: No; Tobacco Cessation Education Requested by Patient: No Hx Alcohol Use: No Hx Substance Use: No Preferred Language: French Communication Ability: Effective Visual Impairment: No Limitations Hearing Ability: Normal Probate Clerk Required: No Beliefs That Will Affect Care: None marital status: Current Living Situation: Spouse Current Living Situation Comment: own home current occupational status: disabled Other Information That Helps Us Care for You: No Feels Safe at Home: Yes Safety Concerns: Feels Safe At This Time Assistive Devices: Brace/Splint/Immobilizer, Glasses and Special Shoe Assistive Devices Comment: taking gait belt home Review of Systems Review of Systems: ROS per HPI, all other systems reviewed and negative Physical Exam Constitutional: WD/WN, vitals as above Eyes: PERRL, conjunctivae normal, anicteric sclerae ENMT: external ear and nose normal, oropharynx normal Respiratory: normal respiratory effort; no respiratory distress Auscultation: + diminished lung sounds (Bilateral bases) Cardiovascular: Rate/Rhythm: regular rate and regular rhythm Heart Sounds: + murmur (Systolic, grade 4/6) Vessels: normal peripheral pulses Extremities: no edema Gastrointestinal (Abdomen): normal bowel sounds, soft, nontender, no hepatosplenomegaly Musculoskeletal: Extremities: no cyanosis and no clubbing Chronic RLE monoplegia from prior CVA strength 1-2/5, strength LLE 4/5, strength RUE 4/5, strength LUE 5/5 Skin: no rashes, warm and dry Neurologic: PERRL, EOMI, accommodation nl, no face palsy, no dysarthria Speech / Cognition: + abnormal speech (Slow to respond, chronic) Psychiatric: Orientation: alert and oriented x 3 Affect: + flat affect Results & Data Results & Data ([facility]) Vital Signs (Past 12 Hours) Vital Signs Temp Pulse Resp BP Pulse Ox 03/18/20 15:00 89 17 140/106 H 97 03/18/20 14:30 86 16 166/79 H 96 03/18/20 14:26 85 18 153/92 H 98 03/18/20 14:00 90 20 96 03/18/20 13:30 76 18 96 03/18/20 13:00 74 21 96 03/18/20 12:30 81 20 161/83 H 98 03/18/20 12:07 72 16 153/65 H 97 03/18/20 12:00 77 18 153/65 H 99 03/18/20 11:42 74 19 97 03/18/20 11:41 36.7 C 75 16 157/72 H 98 03/18/20 11:40 74 17 157/72 H 97 03/18/20 11:31 16 98 Laboratory Results Short CBC 03/18/20 03/18/20 Range/Units 13:09 13:09 WBC 11.08 H (4.8-10.8) K/uL Hgb 13.6 L (14.0-18.0) g/dL Hct 41.5 L (42-52) % Plt Count 267 (130-400) K/uL Magnesium 1.4 L (1.8-2.4) mg/dl BMP 03/18/20 13:09 Sodium 139 Potassium 4.0 Chloride 105 Carbon Dioxide 29 BUN 21 H Creatinine 0.90 Glucose 93 Calcium 9.8 Cardiac Enzymes 03/18/20 Range/Units 13:09 Troponin I < 0.015 (0-0.045) ng/ml Liver Function 03/18/20 Range/Units 13:09 Total Bilirubin 0.4 (0.2-1) mg/dl AST 13 L (15-37) U/L ALT 18 (12-78) U/L Alkaline Phosphatase 67 (45-117) U/L Albumin 3.5 (3.4-5.0) gm/dl Urine 03/18/20 Range/Units 13:21 Urine Color Yellow Urine Appearance Clear (Clear) Urine pH 5.0 (4.5-7.5) Ur Specific [place] 1.023 (1.000-1.030) Urine Protein Negative (Negative) Urine Glucose (UA) Negative (Negative) Diagnostic Findings HEAD CT IMPRESSION: No significant change compared to the prior study. No acute intracranial abnormality. CXR IMPRESSION: No acute cardiopulmonary findings. No change in appearance of the chest. CT ABD/PELVIS IMPRESSION: 1. Streak and motion compromised examination. 2. There is patchy airspace consolidation at the right lung base. Correlate clinically for evidence of pneumonia/aspiration pneumonitis. 3. No acute infectious or inflammatory findings are seen in the abdomen or pelvis. 4. Moderate constipation. 5. Cardiomegaly and hiatal hernia. 6. Additional findings as above. Code Status & VTE Plan Code Status Patient is a full code as per my discussion with him and his who is the bedside. VTE Prophylaxis Plan VTE Prophylaxis will be ordered: No Supervising Physician Co-Signing Physician Notes I, Dr. Filippo Maciel, have seen and examined the patient with nurse practitioner and would like to comment that On physical exam General: no acute distress Heart: regular rate, heart murmur which is chronic as per patient and his at bedside Lungs: on room air, no wheezing, no audible crackles Abdomen: soft, nontender, positive bowel sounds Neuro: speaks in full sentences, awake and alert, cooperative Assessment and Plan -This a 59 year old male with multiple cardiovascular issues including diabetes mellitus and history of stroke in the past and also on systemic anticoagulation with warfarin. Main issue is that patient had 3 episodes of vomiting on 03/18/2020 in the day time and presents to the hospital for further workup. Imaging with only patchy airspace consolidation at the right lung base and labs of WBC 11,000 and low serum magnesium of 1.4 (but patients serum magnesium levels are somewhat chronically low) -patient to get empiric antibiotic and have blood cultures drawn in case any underlying source of infection for the leukocytosis -replete the serum magnesium and monitor on telemetry -patient is on insulin for type 2 diabetes mellitus -continue his home dose cardiovascular medications -agree with other assessment and plans as documented by nurse practitioner (1) Aspiration into lower respiratory tract Encounter type: initial encounter Qualified Code(s): T17.800A - Unspecified foreign body in other parts of respiratory tract causing asphyxiation, initial encounter (2) Nausea & vomiting Vomiting Intractability: non-intractable Vomiting type: unspecified Qualified Code(s): R11.2 - Nausea with vomiting, unspecified
[2020-03-18] MEDS: MAGNESIUM SULFATE / D5W 1 GM/100 ML BAG IV SCH ×2 (18:31→19:29)
[2020-03-18] MEDS ORDERED: DEXTROSE 50% 50 ML SYRINGE IV PRN (19:12)
[2020-03-18] MEDS ORDERED: GLUCOSE 10 TABS/TUBE PO PRN (19:12)
[2020-03-18] MEDS ORDERED: CARBOHYDRATES FOR HYPOGLYCEMIA PO PRN (19:12)
[2020-03-18] MEDS ORDERED: ACETAMINOPHEN 325 MG TAB PO PRN (19:12)
[2020-03-18] MEDS ORDERED: GLUCAGON FOR INJ 1 MG VIAL SQ PRN (19:12)
[2020-03-18] MEDS ORDERED: GLUCOSE 40% GEL 15 GM TUBE PO PRN (19:12)
[2020-03-18] MEDS: POLYETHYLENE (MIRALAX) 17 GM PACK PO SCH (20:23)
[2020-03-18] MEDS: WARFARIN SOD 5 MG TAB PO SCH (20:23)
[2020-03-18] MEDS: carvediloL 12.5 MG TAB PO SCH (20:24)
[2020-03-18] MEDS: TAMSULOSIN HCL 0.4 MG CAP PO SCH (20:25)
[2020-03-18] MEDS: ATORVASTATIN 40 MG TAB PO SCH (20:26)
[2020-03-18] MEDS: DOCUSATE SODIUM 100 MG CAP PO SCH (20:26)
[2020-03-18] MEDS: INSULIN ASPART 100 UNITS/ML 3 ML PEN SC SCH (20:29)
[2020-03-18] MEDS: INSULIN GLARGINE SOLOSTAR 100 UNITS/ML 3 ML PEN SQ SCH (20:30)
[2020-03-18] MEDS: AMPICILLIN/SULBACTAM SOD 3,000 MG in 0.9 % SODIUM CHLORIDE 100 ML IV SCH (23:24)
[2020-03-19] MEDS: AMPICILLIN/SULBACTAM SOD 3,000 MG in 0.9 % SODIUM CHLORIDE 100 ML IV SCH ×4 (06:07→23:31)
[2020-03-19 07:19] LABS: Hematocrit (blood only) 38.6 % (42-52); Hemoglobin 12.5 g/dL (14.0-18.0); Mean Corpuscular Hgb Conc 32.4 g/dL (32-36); Mean Corpuscular Volume 77.2 fL (80-100); Mean Platelet Volume 10.4 fL (7.4-10.4); Platelet Count 248 K/uL (130-400); RDW Coefficient of Variation 14.8 % (11.5-14.5); RDW Standard Deviation 41.7 fL (36.4-46.3); White Blood Count 7.87 K/uL (4.8-10.8)
[2020-03-19 07:39] LABS: Prothrombin Time 38.7 Seconds (9.0-12.0)
[2020-03-19 07:46] LABS: BUN Creatinine Ratio 19.7 (10-20); Creatinine Clr Calc Pharmacy 111.3 ml/min; Est GFR (African American) 111.7; Est GFR (Non-African American) 96.4; Magnesium 1.3 mg/dl (1.8-2.4); Potassium 3.8 mmol/L (3.5-5.1)
[2020-03-19] MEDS: SACCHAROMYCES BOULARDII 250 MG CAP PO SCH (08:20)
[2020-03-19] MEDS: CLOPIDOGREL BISULFATE 75 MG TAB PO SCH (08:20)
[2020-03-19] MEDS: BACLOFEN 10 MG TAB PO SCH (08:20)
[2020-03-19] MEDS: carvediloL 12.5 MG TAB PO SCH ×2 (08:20→17:52)
[2020-03-19] MEDS: ASPIRIN 81 MG ECTAB PO SCH (08:20)
[2020-03-19] MEDS: DOCUSATE SODIUM 100 MG CAP PO SCH ×2 (08:20→21:01)
[2020-03-19] MEDS: amLODIPine BESYLATE 5 MG TAB PO SCH (08:20)
[2020-03-19] MEDS: lisinopril 20 MG TAB PO SCH (08:20)
[2020-03-19] MEDS: POLYETHYLENE (MIRALAX) 17 GM PACK PO SCH (08:22)
[2020-03-19] MEDS: INSULIN ASPART 100 UNITS/ML 3 ML PEN SC SCH ×4 (08:25→21:01)
[2020-03-19] MEDS: INSULIN GLARGINE SOLOSTAR 100 UNITS/ML 3 ML PEN SQ SCH ×2 (08:25→21:01)
--- NOTE | 2020-03-19 20:52 | Hospitalist Progress Note ---
Date of Service March 19, 2020 Assessment & Plan (1) Nausea & vomiting: -Patient admitted with reports of nausea and 3 episodes of vomiting. -CT ABD/pelvis unremarkable for acute abdominal findings on antiemetics and supportive care (2) Aspiration into lower respiratory tract: -CT ABD/pelvis showing signs of possible right basilar aspiration pneumonitis/pneumonia - on IV Unasyn /speech eval requested by admitting team Admission and Anticipated Discharge Date Admission Date: March 18, 2020 Subjective pt not seen personally chart review done : Results & Data Results & Data ([facility]) Vital Signs (Past 12 Hours) Vital Signs Temp Pulse Pulse Resp BP Pulse Ox 03/19/20 19:43 36.9 C 70 18 151/73 H 94 03/19/20 15:53 72 03/19/20 15:45 36.6 C 70 18 167/79 H 95 03/19/20 11:21 36.9 C 65 18 132/78 95 (1) Aspiration into lower respiratory tract Encounter type: initial encounter Qualified Code(s): T17.800A - Unspecified foreign body in other parts of respiratory tract causing asphyxiation, initial encounter (2) Nausea & vomiting Vomiting Intractability: non-intractable Vomiting type: unspecified Qualified Code(s): R11.2 - Nausea with vomiting, unspecified
[2020-03-19] MEDS: ATORVASTATIN 40 MG TAB PO SCH (21:01)
[2020-03-19] MEDS: TAMSULOSIN HCL 0.4 MG CAP PO SCH (21:01)
[2020-03-20] MEDS: AMPICILLIN/SULBACTAM SOD 3,000 MG in 0.9 % SODIUM CHLORIDE 100 ML IV SCH ×2 (06:04→11:37)
[2020-03-20 06:30] LABS: INR 2.6 (0.9-1.1)
[2020-03-20] MEDS: DOCUSATE SODIUM 100 MG CAP PO SCH ×2 (08:17→20:58)
[2020-03-20] MEDS: carvediloL 12.5 MG TAB PO SCH ×2 (08:17→16:15)
[2020-03-20] MEDS: ASPIRIN 81 MG ECTAB PO SCH (08:18)
[2020-03-20] MEDS: SACCHAROMYCES BOULARDII 250 MG CAP PO SCH (08:18)
[2020-03-20] MEDS: BACLOFEN 10 MG TAB PO SCH (08:18)
[2020-03-20] MEDS: CLOPIDOGREL BISULFATE 75 MG TAB PO SCH (08:19)
[2020-03-20] MEDS: amLODIPine BESYLATE 5 MG TAB PO SCH (08:19)
[2020-03-20] MEDS: lisinopril 20 MG TAB PO SCH (08:19)
[2020-03-20] MEDS: INSULIN GLARGINE SOLOSTAR 100 UNITS/ML 3 ML PEN SQ SCH ×2 (08:21→20:58)
[2020-03-20] MEDS: INSULIN ASPART 100 UNITS/ML 3 ML PEN SC SCH ×4 (08:21→20:58)
[2020-03-20] MEDS: POLYETHYLENE (MIRALAX) 17 GM PACK PO SCH (10:57)
[2020-03-20] MEDS: WARFARIN SOD 5 MG TAB PO SCH (16:15)
--- NOTE | 2020-03-20 18:25 | Hospitalist Progress Note ---
Date of Service March 20, 2020 Assessment & Plan (1) Nausea & vomiting: -Patient admitted with reports of nausea and vomiting symptoms has resolved completely diet advanced , tolerating well possible viral gastroenteritis ? -CT ABD/pelvis unremarkable for acute abdominal findings mild leukocytosis on admission -resolved afebrile , mental status at baseline (2) Aspiration into lower respiratory tract: aspiration pnumonitis ? -CT ABD/pelvis showing signs of possible right basilar aspiration pneumonitis/pneumonia Cxray shows no active disease - was on IV Unasyn -changed to PO Augmentin speech eval appreciated : no s/s aspiration noted , recommends cont diet with regular consitstency , aspiraiton precuation Embolic CVA : on coumadin , INR theraputic ordered for PT/Ot eval prior dc home updated at bedside Admission and Anticipated Discharge Date Admission Date: March 18, 2020 Subjective pt seen and examined at bedside present Mr britt appears to be in good spirt , no nausea vomiting or abdominal pain since admission tolerating diet with regular consistency no fever or cough pt denies of any discomfort is worried about pt being deconditioned and weak during hospital stay PT/OT eval requested Review of Systems Review of Systems: All systems reviewed & are unremarkable except as noted in HPI & below Physical Exam Constitutional: WD/WN, vitals as above Eyes: PERRL, conjunctivae normal, anicteric sclerae ENMT: external ear and nose normal, oropharynx normal Respiratory: normal respiratory effort; no respiratory distress Auscultation: + diminished lung sounds (Bilateral bases) Cardiovascular: Rate/Rhythm: regular rate and regular rhythm Heart Sounds: + murmur (Systolic, grade 4/6) Vessels: normal peripheral pulses Extremities: no edema Gastrointestinal (Abdomen): normal bowel sounds, soft, nontender, no hepatosplenomegaly Musculoskeletal: Extremities: no cyanosis and no clubbing Skin: no rashes, warm and dry Neurologic: PERRL, EOMI, accommodation nl, no face palsy, no dysarthria Speech / Cognition: + abnormal speech (Slow to respond, chronic) Psychiatric: Orientation: alert and oriented x 3 Affect: + flat affect Results & Data Results & Data ([facility]) Vital Signs (Past 12 Hours) Vital Signs Temp Pulse Pulse Resp BP Pulse Ox 03/20/20 16:23 72 03/20/20 15:29 37.2 C 72 18 183/79 H 95 10/15/20 11:00 36.5 C 66 18 154/78 H 95 03/20/20 08:17 72 03/20/20 07:36 58 L 03/20/20 07:00 36.8 C 67 18 170/79 H 93 (1) Aspiration into lower respiratory tract Encounter type: initial encounter Qualified Code(s): T17.800A - Unspecified foreign body in other parts of respiratory tract causing asphyxiation, initial encounter (2) Nausea & vomiting Vomiting Intractability: non-intractable Vomiting type: unspecified Qualified Code(s): R11.2 - Nausea with vomiting, unspecified
[2020-03-20] MEDS: TAMSULOSIN HCL 0.4 MG CAP PO SCH (20:58)
[2020-03-20] MEDS: ATORVASTATIN 40 MG TAB PO SCH (20:58)
[2020-03-21 06:26] LABS: INR 2.1 (0.9-1.1); Prothrombin Time 21.4 Seconds (9.0-12.0)
[2020-03-21] MEDS: AMOXICILLIN/CLAVULANATE 875 MG TAB PO SCH ×2 (08:35→17:59)
[2020-03-21] MEDS: DOCUSATE SODIUM 100 MG CAP PO SCH ×2 (08:36→21:25)
[2020-03-21] MEDS: carvediloL 12.5 MG TAB PO SCH ×2 (08:36→17:59)
[2020-03-21] MEDS: ASPIRIN 81 MG ECTAB PO SCH (08:36)
[2020-03-21] MEDS: SACCHAROMYCES BOULARDII 250 MG CAP PO SCH (08:36)
[2020-03-21] MEDS: BACLOFEN 10 MG TAB PO SCH (08:36)
[2020-03-21] MEDS: CLOPIDOGREL BISULFATE 75 MG TAB PO SCH (08:37)
[2020-03-21] MEDS: amLODIPine BESYLATE 5 MG TAB PO SCH (08:37)
[2020-03-21] MEDS: lisinopril 20 MG TAB PO SCH (08:37)
[2020-03-21] MEDS: POLYETHYLENE (MIRALAX) 17 GM PACK PO SCH (08:37)
[2020-03-21] MEDS: INSULIN GLARGINE SOLOSTAR 100 UNITS/ML 3 ML PEN SQ SCH ×2 (08:41→21:25)
[2020-03-21] MEDS: INSULIN ASPART 100 UNITS/ML 3 ML PEN SC SCH ×4 (08:41→21:25)
[2020-03-21] MEDS ORDERED: MAGNESIUM SULFATE / D5W 1 GM/100 ML BAG IV ONE (11:30)
[2020-03-21] MEDS: WARFARIN SOD 7.5 MG TAB PO SCH (15:50)
--- NOTE | 2020-03-21 18:02 | Hospitalist Progress Note ---
Date of Service March 21, 2020 Assessment & Plan (1) Nausea & vomiting: symptoms has resolled completely -P possible viral gastroenteritis ? -CT ABD/pelvis unremarkable for acute abdominal findings mild leukocytosis on admission -resolved afebrile , mental status at baseline (2) Aspiration into lower respiratory tract: aspiration pnumonitis ? -CT ABD/pelvis showing signs of possible right basilar aspiration pneumonitis/pneumonia Cxray shows no active disease - was on IV Unasyn -changed to PO Augmentin speech eval appreciated : no s/s aspiration noted , recommends cont diet with regular consitstency , aspiraiton precuation Embolic CVA : on coumadin , INR theraputic recent hx of CVA : PT/OT eval appreciated , recommends SNF is very concerned -does not want pt to return to [facility] ( recently discharged form there) wants referral made for acute rehab in [facility] updated updated at bedside , all questions answered . Admission and Anticipated Discharge Date Admission Date: March 18, 2020 Subjective pt is sitting up on chair offers no complain no nausea /vomiting or abdominal pain tolerating diet well Physical Exam Constitutional: WD/WN, vitals as above Eyes: PERRL, conjunctivae normal, anicteric sclerae ENMT: external ear and nose normal, oropharynx normal Respiratory: normal respiratory effort; no respiratory distress Auscultation: + diminished lung sounds (Bilateral bases) Cardiovascular: Rate/Rhythm: regular rate and regular rhythm Heart Sounds: + murmur (Systolic, grade 4/6) Vessels: normal peripheral pulses Extremities: no edema Gastrointestinal (Abdomen): normal bowel sounds, soft, nontender, no hepatosplenomegaly Musculoskeletal: Extremities: no cyanosis and no clubbing Skin: no rashes, warm and dry Neurologic: PERRL, EOMI, accommodation nl, no face palsy, no dysarthria Speech / Cognition: + abnormal speech (Slow to respond, chronic) Psychiatric: Orientation: alert and oriented x 3 Affect: + flat affect Results & Data Results & Data ([facility]) Vital Signs (Past 12 Hours) Vital Signs Temp Pulse Pulse Resp BP Pulse Ox 03/21/20 16:42 65 03/21/20 15:07 36.6 C 60 16 154/79 H 97 03/21/20 11:38 36.3 C L 61 16 116/73 98 10/16/20 07:31 36.4 C L 67 16 169/79 H 97 03/21/20 07:20 71 (1) Nausea & vomiting Vomiting Intractability: non-intractable Vomiting type: unspecified Qualified Code(s): R11.2 - Nausea with vomiting, unspecified (2) Aspiration into lower respiratory tract Encounter type: initial encounter Qualified Code(s): T17.800A - Unspecified foreign body in other parts of respiratory tract causing asphyxiation, initial encounter
[2020-03-21] MEDS: TAMSULOSIN HCL 0.4 MG CAP PO SCH (21:25)
[2020-03-21] MEDS: ATORVASTATIN 40 MG TAB PO SCH (21:25)
[2020-03-22] MEDS: AMOXICILLIN/CLAVULANATE 875 MG TAB PO SCH ×2 (07:50→17:39)
[2020-03-22] MEDS: carvediloL 12.5 MG TAB PO SCH ×2 (07:50→17:39)
[2020-03-22] MEDS: amLODIPine BESYLATE 5 MG TAB PO SCH (07:51)
[2020-03-22] MEDS: ASPIRIN 81 MG ECTAB PO SCH (07:51)
[2020-03-22] MEDS: lisinopril 20 MG TAB PO SCH (07:51)
[2020-03-22] MEDS: CLOPIDOGREL BISULFATE 75 MG TAB PO SCH (07:51)
[2020-03-22] MEDS: BACLOFEN 10 MG TAB PO SCH (07:52)
[2020-03-22] MEDS: DOCUSATE SODIUM 100 MG CAP PO SCH ×2 (07:52→21:27)
[2020-03-22] MEDS: SACCHAROMYCES BOULARDII 250 MG CAP PO SCH (07:54)
[2020-03-22] MEDS: POLYETHYLENE (MIRALAX) 17 GM PACK PO SCH (07:54)
[2020-03-22 08:13] LABS: INR 2.2 (0.9-1.1)
[2020-03-22] MEDS: INSULIN ASPART 100 UNITS/ML 3 ML PEN SC SCH ×4 (08:51→21:27)
[2020-03-22] MEDS: INSULIN GLARGINE SOLOSTAR 100 UNITS/ML 3 ML PEN SQ SCH ×2 (08:52→21:27)
--- NOTE | 2020-03-22 17:10 | Hospitalist Progress Note ---
Date of Service March 22, 2020 Assessment & Plan (1) Nausea & vomiting: symptoms has resolled completely -P possible viral gastroenteritis ? -CT ABD/pelvis unremarkable for acute abdominal findings mild leukocytosis on admission -resolved afebrile , mental status at baseline (2) Aspiration into lower respiratory tract: Possible aspiration pneumonitis: -CT ABD/pelvis showing signs of possible right basilar aspiration pneumonitis/pneumonia Cxray shows no active disease - was on IV Unasyn -changed to PO Augmentin speech eval appreciated : no s/s aspiration noted , recommends cont diet with regular consistency , aspiration precautions 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 , INR therapeutic recent hx of CVA : PT/OT eval appreciated , recommends SNF is very concerned -does not want pt to return to [facility] ( recently discharged form there) wants referral made for acute rehab in [facility] updated -referral made to inpatient rehab in [place] updated at bedside , all questions answered . Admission and Anticipated Discharge Date Admission Date: March 18, 2020 Subjective Sitting up in chair, awake and alert, tolerating diet well, no nausea vomiting or abdominal pain, No cough no fever or chills Physical Exam Constitutional: WD/WN, vitals as above Eyes: PERRL, conjunctivae normal, anicteric sclerae ENMT: external ear and nose normal, oropharynx normal Respiratory: normal respiratory effort; no respiratory distress Auscultation: + diminished lung sounds (Bilateral bases) Cardiovascular: Rate/Rhythm: regular rate and regular rhythm Heart Sounds: + murmur (Systolic, grade 4/6) Vessels: normal peripheral pulses Extremities: no edema Gastrointestinal (Abdomen): normal bowel sounds, soft, nontender, no hepatosplenomegaly Musculoskeletal: Extremities: no cyanosis and no clubbing Skin: no rashes, warm and dry Neurologic: PERRL, EOMI, accommodation nl, no face palsy, no dysarthria Speech / Cognition: + abnormal speech (Slow to respond, chronic) Psychiatric: Orientation: alert and oriented x 3 Affect: + flat affect Results & Data Results & Data ([facility]) Vital Signs (Past 12 Hours) Vital Signs Temp Pulse Pulse Resp BP Pulse Ox 03/22/20 15:35 36.7 C 61 16 145/74 H 97 03/22/20 15:25 65 03/22/20 11:22 36.9 C 61 16 157/84 H 97 03/22/20 07:40 36.6 C 59 L 16 172/80 H 96 03/22/20 07:18 62 (1) Aspiration into lower respiratory tract Encounter type: initial encounter Qualified Code(s): T17.800A - Unspecified foreign body in other parts of respiratory tract causing asphyxiation, initial encounter (2) Nausea & vomiting Vomiting Intractability: non-intractable Vomiting type: unspecified Qualified Code(s): R11.2 - Nausea with vomiting, unspecified
[2020-03-22] MEDS: WARFARIN SOD 5 MG TAB PO SCH (17:37)
[2020-03-22] MEDS: TAMSULOSIN HCL 0.4 MG CAP PO SCH (21:27)
[2020-03-22] MEDS: ATORVASTATIN 40 MG TAB PO SCH (21:27)
[2020-03-23] MEDS: AMOXICILLIN/CLAVULANATE 875 MG TAB PO SCH (08:22)
[2020-03-23] MEDS: carvediloL 12.5 MG TAB PO SCH ×2 (08:22→17:53)
[2020-03-23] MEDS: SACCHAROMYCES BOULARDII 250 MG CAP PO SCH (08:23)
[2020-03-23] MEDS: DOCUSATE SODIUM 100 MG CAP PO SCH ×2 (08:24→20:39)
[2020-03-23] MEDS: BACLOFEN 10 MG TAB PO SCH (08:24)
[2020-03-23] MEDS: CLOPIDOGREL BISULFATE 75 MG TAB PO SCH (08:24)
[2020-03-23] MEDS: INSULIN GLARGINE SOLOSTAR 100 UNITS/ML 3 ML PEN SQ SCH ×3 (08:24→20:40)
[2020-03-23] MEDS: amLODIPine BESYLATE 5 MG TAB PO SCH (08:24)
[2020-03-23] MEDS: ASPIRIN 81 MG ECTAB PO SCH (08:24)
[2020-03-23] MEDS: POLYETHYLENE (MIRALAX) 17 GM PACK PO SCH (08:24)
[2020-03-23] MEDS: lisinopril 20 MG TAB PO SCH (08:24)
[2020-03-23] MEDS: INSULIN ASPART 100 UNITS/ML 3 ML PEN SC SCH ×4 (08:25→20:41)
[2020-03-23] MEDS ORDERED: MICONAZOLE NITRATE POWDER 43 GM EXT PRN (09:40)
[2020-03-23] MEDS ORDERED: PHARMACY GLYCEMIC MGMT CONSULT SCH (12:01)
--- NOTE | 2020-03-23 12:16 | Pharmacy Report ---
Glycemic Control Consultation - Date of Service March 23, 2020 - Scope Scope: Glycemic Pharmacist consulted for glycemic control and to write orders per [facility] inpatient glycemic control protocol. - Objective Weight: 95.4 kg Accalyssaecks BSG (last 24hrs): 03/22/20 03/22/20 03/23/20 16:56 20:02 07:24 Glucose POC Glucose 193 H 224 H 172 H 03/23/20 03/23/20 03/23/20 11:13 11:14 11:15 Glucose POC Glucose 351 H* 390 H* 337 H* 03/23/20 11:32 Glucose 346 H* POC Glucose - Recent Pertinent Medications Outpatient Anti-diabetic Regimen: * Noovlog 10 units AC * Lantus 18 units BID * Metformin 1000mg PO BID * A1c = 7.9 % 12/06/19, updated A1c ordered The patient is currently receiving: * Basal insulin: Lantus 10 units every 12 hours * Correctional Insulin: Novolog Correction per scale ACHS Goal Range: Low 100 mg/dL - High 140 mg/dL Correction Factor: 35 mg/dL/unit * Prandial insulin: Per carb ratio of 1 unit per 15 grams CHO consumed * Oral Agents: on hold Risk Factors for Insulin Resistance: * Infection: aspiration pneumonia, Augmentin * Diet: Type 2 DM - Assessment & Plan Assessment & Plan: ASSESSMENT: * 59 year old type 2 diabetic admitted with possible viral gastroenteritis and aspiration pneumonitis on 03/18/20. * Hyperglycemia as inpatient d/t insufficient insulin. * Increase Lantus and tighten NovoLog parameters at this time. * Patient known to pharmacy glycemic service from previous admissions, most recently for CVA in January. PLAN FOR INPATIENT GLYCEMIC CONTROL: * Holding outpatient oral diabetes medications * Basal insulin - increase * Lantus 20 units SQ BID starting now at 1200 * Bolus insulin * NovoLog per scale ACHS or Q6hrs while NPO * Goal Range: Low 110 mg/dL - High 140 mg/dL * tighten: Correction Factor: 12 mg/dL/unit * tighten: Nutritional / Prandial insulin per carb ratio of 1 unit per 4 grams CHO consumed * Please note that the plan above was derived based on current level of insulin resistance and hospital stress. These recommendations are appropriate for inpatient admission only. Plan of care upon discharge will need to be reassessed to avoid potential outpatient hypo/hyperglycemia. Thank you.
[2020-03-23 12:29] LABS: Beta-Hydroxybutyrate 0.51 mg/dl (0.2-2.81)
--- NOTE | 2020-03-23 17:01 | Hospitalist Progress Note ---
Date of Service March 23, 2020 Assessment & Plan (1) Nausea & vomiting: symptoms has resovled ,completely -tolerating diet possible viral gastroenteritis ? -CT ABD/pelvis unremarkable for acute abdominal findings mild leukocytosis on admission -resolved afebrile , mental status at baseline Type 2 DM ; developed hyperglycemia , pharamcy consulted for glycemic managment check HbA 1 c (2) Aspiration into lower respiratory tract: Possible aspiration pneumonitis: admitted with Nausea /vomiting , hx of recent CVA was started on Augmentin -Pt is on chronic suppresion therapy with Clindamycin for rt great toe osetomylitis clinidamycin resumed , D/C augmentin speech eval appreciated : no s/s aspiration noted , recommends cont diet with regular consistency , aspiration precautions 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 Admission and Anticipated Discharge Date Admission Date: March 18, 2020 Subjective offers no new complains no cough or SOB no fever or chills Physical Exam Constitutional: WD/WN, vitals as above Eyes: PERRL, conjunctivae normal, anicteric sclerae ENMT: external ear and nose normal, oropharynx normal Respiratory: normal respiratory effort; no respiratory distress Auscultation: + diminished lung sounds (Bilateral bases) Cardiovascular: Rate/Rhythm: regular rate and regular rhythm Heart Sounds: + murmur (Systolic, grade 4/6) Vessels: normal peripheral pulses Extremities: no edema Gastrointestinal (Abdomen): normal bowel sounds, soft, nontender, no hepatosplenomegaly Musculoskeletal: Extremities: no cyanosis and no clubbing Skin: no rashes, warm and dry Neurologic: PERRL, EOMI, accommodation nl, no face palsy, no dysarthria Speech / Cognition: + abnormal speech (Slow to respond, chronic) Psychiatric: Orientation: alert and oriented x 3 Affect: + flat affect Results & Data Results & Data (MN) Vital Signs (Past 12 Hours) Vital Signs Temp Pulse Resp BP Pulse Ox 03/23/20 15:24 36.9 C 62 16 183/75 H 96 03/23/20 08:00 78 03/23/20 06:22 36.6 C 57 L 18 150/79 H 97 (1) Nausea & vomiting Vomiting Intractability: non-intractable Vomiting type: unspecified Qualifie d Code(s): R11.2 - Nausea with vomiting, unspecified (2) Aspiration into lower respiratory tract Encounter type: initial encounter Qualified Code(s): T17.800A - Unspecified foreign body in other parts of respiratory tract causing asphyxiation, initial encounter
[2020-03-23] MEDS: WARFARIN SOD 5 MG TAB PO SCH (17:54)
[2020-03-23] MEDS: CLINDAMYCIN HCL 150 MG CAP PO SCH (20:37)
[2020-03-23] MEDS: TAMSULOSIN HCL 0.4 MG CAP PO SCH ×2 (20:39→20:45)
[2020-03-23] MEDS: ATORVASTATIN 40 MG TAB PO SCH (20:40)
[2020-03-24 06:52] LABS: Estimated Average Glucose 166 mg/dl; Hemoglobin A1C 7.4 % (4.5-5.6)
[2020-03-24] MEDS: lisinopril 20 MG TAB PO SCH (08:17)
[2020-03-24] MEDS: DOCUSATE SODIUM 100 MG CAP PO SCH ×2 (08:17→20:20)
[2020-03-24] MEDS: CLINDAMYCIN HCL 150 MG CAP PO SCH ×3 (08:19→20:21)
[2020-03-24] MEDS: amLODIPine BESYLATE 5 MG TAB PO SCH (08:19)
[2020-03-24] MEDS: BACLOFEN 10 MG TAB PO SCH (08:19)
[2020-03-24] MEDS: carvediloL 12.5 MG TAB PO SCH ×2 (08:19→17:44)
[2020-03-24] MEDS: CLOPIDOGREL BISULFATE 75 MG TAB PO SCH (08:19)
[2020-03-24] MEDS: SACCHAROMYCES BOULARDII 250 MG CAP PO SCH (08:19)
[2020-03-24] MEDS: ASPIRIN 81 MG ECTAB PO SCH (08:19)
[2020-03-24] MEDS: INSULIN GLARGINE SOLOSTAR 100 UNITS/ML 3 ML PEN SQ SCH ×2 (08:20→20:25)
[2020-03-24] MEDS: INSULIN ASPART 100 UNITS/ML 3 ML PEN SC SCH ×4 (08:20→20:24)
[2020-03-24] MEDS: POLYETHYLENE (MIRALAX) 17 GM PACK PO SCH (08:21)
--- NOTE | 2020-03-24 14:27 | Pharmacy Report ---
Pharmacy Glycemic Short Note 2 - Date of Service March 24, 2020 - Glycemic Short BSG Results (Last 24 hours): 03/23/20 03/23/20 03/24/20 16:48 20:14 04:02 POC Glucose 123 H 126 H 98 03/24/20 03/24/20 07:45 11:49 POC Glucose 120 H 183 H OUTPATIENT ANTIDIABETIC REGIMEN: * Novolog 10 units AC, Lantus 18 units BID, metformin 1 gm BID * a1c 7.4% 03/24/20 ASSESSMENT: * Patient received 94 units of insulin yesterday, 50 of basal, 44 of prandial/correctional * BSGs improved with tightened carb ratio/correction factor yesterday at lunch- will continue * Fasting this AM improved, 120 mg/dL, will continue 20 units BID of lantus PLAN FOR INPATIENT GLYCEMIC CONTROL: * Hold outpatient oral diabetes medications * Basal insulin * Lantus 20 units SQ BID * Bolus insulin * NovoLog per scale ACHS or Q6hrs while NPO * Goal Range: [id number] mg/dL - High 140 mg/dL * Correction Factor: 12 mg/dL/unit * Nutritional / Prandial insulin per carb ratio of 1 unit per 4 grams CHO consumed
[2020-03-24] MEDS ORDERED: lisinopril 20 MG TAB PO STA (14:34)
[2020-03-24] MEDS: WARFARIN SOD 7.5 MG TAB PO SCH (17:43)
--- NOTE | 2020-03-24 18:48 | Hospitalist Progress Note ---
Date of Service March 24, 2020 Assessment & Plan (1) Nausea & vomiting: symptoms has resovled ,completely -tolerating diet possible viral gastroenteritis ? -CT ABD/pelvis unremarkable for acute abdominal findings mild leukocytosis on admission -resolved afebrile , mental status at baseline Type 2 DM ; BSG much improved after adjustment of insulin pharamcy consulted for glycemic managment HbA 1 c 7.4 with in goa (2) Aspiration into lower respiratory tract: Possible aspiration pneumonitis: admitted with Nausea /vomiting , hx of recent CVA was started on Augmentin -Pt is on chronic suppresion therapy with Clindamycin for rt great toe osetomylitis clinidamycin resumed , D/C augmentin speech eval appreciated : no s/s aspiration noted , recommends cont diet with regular consistency , aspiration precautions 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 , INR therapeutic recent hx of CVA : PT/OT eval appreciated , recommends SNF referral made for acute rehab/[facility] in [place] appreciate input from plan to transfer to acute rehab when insurance auth available Admission and Anticipated Discharge Date Admission Date: March 18, 2020 Subjective offers no new complains no cough or SOB no fever or chills Physical Exam Constitutional: WD/WN, vitals as above Eyes: PERRL, conjunctivae normal, anicteric sclerae ENMT: external ear and nose normal, oropharynx normal Respiratory: normal respiratory effort; no respiratory distress Auscultation: + diminished lung sounds (Bilateral bases) Cardiovascular: Rate/Rhythm: regular rate and regular rhythm Heart Sounds: + murmur (Systolic, grade 4/6) Vessels: normal peripheral pulses Extremities: no edema Gastrointestinal (Abdomen): normal bowel sounds, soft, nontender, no hepatosplenomegaly Musculoskeletal: Extremities: no cyanosis and no clubbing Skin: no rashes, warm and dry Neurologic: PERRL, EOMI, accommodation nl, no face palsy, no dysarthria Speech / Cognition: + abnormal speech (Slow to respond, chronic) Psychiatric: Orientation: alert and oriented x 3 Affect: + flat affect Results & Data Results & Data (MN) Vital Signs (Past 12 Hours) Vital Signs Temp Pulse Resp BP Pulse Ox 03/24/20 15:57 36.6 C 73 18 151/74 H 94 03/24/20 07:36 36.6 C 63 16 180/79 H 96 (1) Aspiration into lower respiratory tract Encounter type: initial encounter Qualified Code(s): T17.800A - Unspecified foreign body in other parts of respiratory tract causing asphyxiation, initial encounter (2) Nausea & vomiting Vomiting Intractability: non-intractable Vomiting type: unspecified Qualified Code(s): R11.2 - Nausea with vomiting, unspecified
[2020-03-24] MEDS: ATORVASTATIN 40 MG TAB PO SCH (20:22)
[2020-03-24] MEDS: TAMSULOSIN HCL 0.4 MG CAP PO SCH (20:23)
[2020-03-25] MEDS: BACLOFEN 10 MG TAB PO SCH (08:13)
[2020-03-25] MEDS: carvediloL 12.5 MG TAB PO SCH ×2 (08:14→17:07)
[2020-03-25] MEDS: amLODIPine BESYLATE 5 MG TAB PO SCH (08:15)
[2020-03-25] MEDS: SACCHAROMYCES BOULARDII 250 MG CAP PO SCH (08:15)
[2020-03-25] MEDS: CLINDAMYCIN HCL 150 MG CAP PO SCH ×2 (08:15→14:34)
[2020-03-25] MEDS: POLYETHYLENE (MIRALAX) 17 GM PACK PO SCH (08:16)
[2020-03-25] MEDS: CLOPIDOGREL BISULFATE 75 MG TAB PO SCH (08:16)
[2020-03-25] MEDS: DOCUSATE SODIUM 100 MG CAP PO SCH (08:16)
[2020-03-25] MEDS: ASPIRIN 81 MG ECTAB PO SCH (08:16)
[2020-03-25] MEDS ORDERED: lisinopril 40 MG TAB PO SCH (09:00)
[2020-03-25] MEDS: INSULIN GLARGINE SOLOSTAR 100 UNITS/ML 3 ML PEN SQ SCH (09:00)
[2020-03-25] MEDS ORDERED: INSULIN GLARGINE SOLOSTAR 100 UNITS/ML 3 ML PEN SQ SCH (09:00)
[2020-03-25] MEDS: INSULIN ASPART 100 UNITS/ML 3 ML PEN SC SCH ×3 (09:01→17:09)
--- NOTE | 2020-03-25 13:01 | Pharmacy Report ---
Pharmacy Glycemic Short Note 2 - Date of Service March 25, 2020 - Glycemic Short BSG Results (Last 24 hours): 03/24/20 03/24/20 03/25/20 16:34 20:12 07:53 POC Glucose 161 H 204 H 103 H 03/25/20 11:33 POC Glucose 199 H OUTPATIENT ANTIDIABETIC REGIMEN: * Novolog 10 units AC, Lantus 18 units BID, metformin 1 gm BID * a1c 7.4% 03/24/20 ASSESSMENT: * Patient has been receiving/requiring ~90-95 units of insulin per day. * 40 units of basal insulin with Lantus * 50 units of bolus insulin with NovoLog * BSGs [phone] * AM fasting BSG is BELOW goal range (for inpatient targets) at 103 mg/dl --> will decrease basal insulin slightly by 10% * Post-prandial BSGs still elevated --> will tighten CR but loosen CF since patient has extra basal insulin on board PLAN FOR INPATIENT GLYCEMIC CONTROL: * Hold outpatient oral diabetes medications * Basal insulin * Lantus 18 units SQ BID * Bolus insulin * NovoLog per scale ACHS or Q6hrs while NPO * Goal Range: Low 110 mg/dL - High 140 mg/dL * Correction Factor: 20 mg/dL/unit * Nutritional / Prandial insulin per carb ratio of 1 unit per 3 grams CHO consumed
--- NOTE | 2020-03-25 16:10 | Discharge Summary ---
Date of Service March 25, 2020 Admission HPI Per Admitting Provider 59-year-old male with PMH DM type II, CAD, CVA with residual RLE weakness, severe aortic stenosis, and other problems listed below who presents to the ED for evaluation of nausea and vomiting. Patient recently admitted to [facility] 01/21 through 02/01 for management of acute to subacute CVA. During admission, patient's Eliquis was switched to Coumadin. Patient was discharged to [facility] for rehab. Patient has been home for the past couple weeks. Reports he has been participating in home PT, OT, speech therapy. This morning, patient reports he got ready and had breakfast and his pills in preparation for therapy to come today. Shortly before therapy arrived, patient developed nausea and vomiting. Reports 3 episodes of vomiting. Describes emesis is bilious in nature. checked his blood sugar and it was found to be 80 which she reports is low for him. She gave him icing and orange juice. She called home health nursing who advised for the patient come to the ED for further evaluation. Patient reports he is currently feeling well. Nausea and vomiting is subsequently resolved. Denies any other recent illnesses, fevers, chills. Denies abdominal pain, diarrhea. Normal bowel movement yesterday. No chest pain or shortness of breath. Denies lightheadedness, dizziness, diaphoresis, syncopal events. No urinary symptoms. In the ED, labs show WBC 11 K, MG +1.4. CT ABD/pelvis negative for acute abdominal findings however suggest possible right basilar aspiration pneumonitis. Patient is hemodynamically stable, saturating well on room air. Patient received IVF, IV Zofran, IV Reglan, IV magnesium replacement, IV Unasyn. Principal Diagnosis NAUSEA /VOMITING -RESOLVED ASPIRATION PNEUMONITIS HX OF CVA Discharge Exam Constitutional WD/WN, vitals as above Eyes PERRL, conjunctivae normal, anicteric sclerae ENMT external ear and nose normal, oropharynx normal Respiratory normal respiratory effort; no respiratory distress Auscultation: + diminished lung sounds (Bilateral bases) Cardiovascular Rate/Rhythm: regular rate and regular rhythm Heart Sounds: + murmur (Systolic, grade 4/6) Vessels: normal peripheral pulses Extremities: no edema Gastrointestinal (Abdomen) normal bowel sounds, soft, nontender, no hepatosplenomegaly Musculoskeletal Extremities: no cyanosis and no clubbing Skin no rashes, warm and dry Neurologic PERRL, EOMI, accommodation nl, no face palsy, no dysarthria Speech / Cognition: + abnormal speech (Slow to respond, chronic) Psychiatric Orientation: alert and oriented x 3 Affect: + flat affect Discharge Data Allergies Allergy/AdvReac Type Severity Reaction Status Date / Time No Known Allergies Allergy Verified 03/18/20 12:31 Consultations 03/18/20 15:21 ED Decision to Admit Stat 03/18/20 19:12 Consult Case Management - Discharge Planning Routine Ordered Studies 03/18/20 12:06 CT abd pelvis IV con only Stat CT head/brain wo con Stat Hospital Course (1) Nausea & vomiting: symptoms has resovled ,completely -tolerating diet possible viral gastroenteritis ? -CT ABD/pelvis unremarkable for acute abdominal findings mild leukocytosis on admission -resolved afebrile , mental status at baseline Type 2 DM ; BSG much improved after adjustment of insulin pharamcy consulted for glycemic managEment HbA 1 c 7.4 with in goal (2) Aspiration into lower respiratory tract: Possible aspiration pneumonitis: admitted with Nausea /vomiting , hx of recent CVA was started on Augmentin -Pt is on chronic suppresion therapy with Clindamycin for rt great toe osetomylitis clinidamycin resumed , D/C augmentin speech eval appreciated : no s/s aspiration noted , recommends cont diet with regular consistency , aspiration precautions 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 , INR therapeutic recent hx of CVA : PT/OT eval appreciated , recommends SNF referral made for acute rehab/[facility] in [place] appreciate input from CM /approved for 7 days of acute rehab by insurance today will provide transport pt is stable to be transferred to acute rehab via private car with Total Time Total Time Spent Total Time Spent (In Minutes): 35 mins Total Time Includes: Discharge Planning and Medication Reconciliation Discharge Plan Discharge Items Patient Disposition: Home - Home Health Services Reason For Visit: N/V, ASPIRATION Discharge Diagnosis: NAUSEA /VOMITING -RESOLVED ASPIRATION PNEUMONITIS HX OF CVA Activity: Resume your previous activity Non-emergency contact: Primary Care Provider Call non-emergency contact if: you have any medication questions Follow-up/Referrals: Dereck Zaman DO [Primary Care Provider] - Diet: Heart Healthy Addtl Attending Provider Instructions: CONTINUE PHYSICAL THERAPY /OCCUPATIONAL THERAPY AT THE ACUTE REHAB PATIENT IS STABLE TO BE TRANSPORTED TO [facility] VIA PRIVATE CAR WITH Pending Studies at Discharge: No Stand-Alone Forms: My [facility], Smoking Cessation Medications and DC Order Prescriptions: Continued carvedilol 12.5 mg tablet 12.5 mg PO BID RF: 0 insulin glargine [Lantus U-100 Insulin] 100 unit/mL solution 18 units SQ AMPM RF: 0 clopidogrel [Plavix] 75 mg tablet 75 mg PO QAM RF: 0 atorvastatin [Lipitor] 80 mg tablet 80 mg PO HS RF: 0 metformin 1,000 mg tablet 1,000 mg PO BID RF: 0 baclofen 5 mg tablet 5 mg PO QAM RF: 0 insulin aspart U-100 [Novolog U-100 Insulin aspart] 100 unit/mL Solution 10 unit SUBCUT AC RF: 0 lisinopril 20 mg Tablet 20 mg PO QAM Qty: 30 RF: 1 nitroglycerin 0.4 mg tablet, sublingual 0.4 mg sublingual DIRECTED PRN (Reason: Chest Pain) RF: 0 amlodipine [Norvasc] 5 mg tablet 5 mg PO QAM RF: 0 Saccharomyces boulardii [Florastor] 250 mg capsule 250 mg PO QAM RF: 0 ondansetron 4 mg tablet,disintegrating 4 mg PO Q4H PRN (Reason: Nausea) RF: 0 aspirin [Aspir-81] 81 mg Tablet,Delayed Release (Dr/Ec) 81 mg PO QAM RF: 0 warfarin 5 mg tablet 5 mg PO SUTUTHSA RF: 0 tamsulosin 0.4 mg capsule 0.4 mg PO HS RF: 0 warfarin 5 mg tablet 7.5 mg PO MOWEFR RF: 0 Discharge Orders: Discharge Order (Routine); Ordered 03/25/20 Ordered By: Nicole Garrett/Other Patient Handouts: Managing Type 2 Diabetes, Managing Diabetes: The A1C Test Admission Data Admit Date/Time: 03/18/20 16:13 Attending Provider: Nicole Meyers Admit Provider: Filippo Maciel Primary Care Provider: Dereck Zaman Other Providers: Nicole Meyers ; [place] ; Ruba Dee [facility] ; [facility] ; Filippo Maciel
[2020-03-25] MEDS: WARFARIN SOD 5 MG TAB PO SCH (17:07)
== END 2020-03-25 17:32 | DRG 179 ==
LOC: ED 11:34 → 2N 16:13 → SUATTDRO 16:13 → 2N 18:38

== ENCOUNTER 2020-09-11 10:08 | Inpatient (IN) ==
--- NOTE | 2020-09-11 11:44 | Emergency Department Note ---
Impression & Plan Acute confusion, Hypomagnesemia, Weakness, Fever, Acute hyponatremia ED Provider Note NAME: TREVIN POPE AGE: 60 SEX: M : 1960 ARRIVES VIA: Ambulance INFORMANT: [Patient][] ED PROVIDER(S): [Donny Steele MD] CHIEF COMPLAINT: Weakness HISTORY OF PRESENT ILLNESS: The patient is a 60-year-old male who presents to the ED with weakness. His is at bedside. He presents by EMS. The patient had his second Covid vaccination on Tuesday, 3 days ago. The patient began developing a fever and some weakness the following day, 2 days ago. His fever seemed to break yesterday. He has been increasingly weak though and today, his was concerned because he seemed somewhat confused. She called the ambulance. Blood sugar was over 100 at the house but the did give some sugary icing.. Blood sugar was 280 as per EMS. The patient has not had cough or congestion. He was covered in stool upon arrival but apparently, lost bowel continence in the ambulance. He had not had diarrhea prior to the ambulance ride. There has been no vomiting. His states that she has been pushing fluids/water and he is tolerating liquids well. Patient has been undergoing physical therapy for stroke. He has right-sided deficits and speech deficits from his stroke. REVIEW OF SYSTEMS: See HPI for pertinent positives and negatives. A total of ten systems were reviewed and were otherwise negative. PMHx/PSHx: See Below SOCIAL HISTORY: See Below. PHYSICAL EXAM: GENERAL: Patient is in no acute distress. HEENT: No acute trauma, normocephalic atraumatic, mucous membranes dry, no nasal congestion, no scleral icterus. NECK: No stridor, no adenopathy, no meningismus, trachea is midline. LUNGS: Clear to auscultation bilaterally, no wheeze, no rhonchi, breath sounds equal. HEART: 3/6 systolic murmur, regular rate and rhythm. ABDOMEN: Soft, nontender, bowel sounds positive, no hernias, no peritonitis. EXTREMITIES: No cyanosis or edema. The patient has a brace on the right lower extremity. NEUROLOGIC: Awake. The patient has weakness to the right arm and right leg. He does answer simple questions, he requested a pillow to help with comfort. There are some speech deficits noted. SKIN: No rash, no jaundice, no diaphoresis. DIFFERENTIAL DIAGNOSIS: Infection, dehydration, metabolic abnormality, hypo/hyperglycemia, electrolyte disturbance, vaccine reaction, anemia, hypoxia, cardiac sources, intracerebral event, toxicologic issues, stroke, TIA, as well as other pathologies. EMERGENCY DEPARTMENT COURSE/PROCEDURES: ECG: Indication was weakness. The ECG shows a normal sinus rhythm with a rate of 70. There is some subtle ST elevation in the anterior leads with T wave inversion in the lateral leads. There is an old inferior infarct and what looks like an old lateral infarct. The QTc is 434. Compared to an ECG from 18 March 2020, I see no significant change. Continuous Cardiac Monitoring: An order was placed for continuous cardiac monit oring. The monitor shows a rate of 69 with normal sinus rhythm. MEDICAL DECISION MAKING: There is no leukocytosis or worrisome anemia. There is a normal platelet count. Sodium was low at 129, this is quite a drop for the patient. Magnesium was low at 1.7. Lactic acid level was elevated at over 3. This lactic acid level could be consistent with infection or just dehydration. No worrisome liver enzyme elevation. The patient appeared to be in a euthyroid state. ECG shows a sinus rhythm, no acute ischemia. Cardiac enzyme testing x1 is not consistent with acute cardiac injury. Chest film does not show pneumonia or CHF. Urinalysis does not show evidence for infection. Covid and influenza testing were negative. Brain CT shows no evidence no acute bleed or mass-effect. On exam, the patient appeared dehydrated. He has some speech difficulties and right- sided weakness but this was apparently his baseline. He presented covered in stool although, it was not diarrheal stool. Patient received IV saline, 1 L. He was given IV magnesium. He received IV cefepime as empiric antibiotic coverage. I think the patient's presentation is multifactorial. I suspect he may be having some flulike symptoms as a result have his second Covid vaccine. His hyponatremia is contributing to his weakness and confusion. The low magnesium value may also be part of the reason for this visit. The patient is currently doing fairly well. I do think a hospital stay is velma anted though given his findings. His sodium needs to be corrected. I spoke to the patient, I spoke with his . Case management has been involved. The on-call hospitalist was consulted. 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" Aortic valve stenosis BPH with obstruction/lower urinary tract symptoms CAD (coronary artery disease) Carotid stenosis Diabetic peripheral neuropathy associated with type 2 diabetes mellitus Dyslipidemia Hemiplegia affecting right dominant side History of pancreatitis HTN (hypertension) Hypomagnesemia Monoplegia affecting right dominant side Obesity Osteomyelitis of great toe of right foot Proliferative diabetic retinopathy Retinal edema Right foot drop Status post cerebrovascular accident Status post myocardial infarction Superior mesenteric artery stenosis Type 2 diabetes mellitus Surgical History Hx of vitrectomy S/P angioplasty with stent S/P CABG x 3 S/P PTCA (percutaneous transluminal coronary angioplasty) Family History Father Heart disease Social History Smoking Status: Never smoker Tobacco Type: Cigarettes Second Hand Exposure: No; Hx Alcohol Use: No Hx Substance Use: No Preferred Language: Welsh Communication Ability: Effective Visual Impairment: No Limitations Hearing Ability: Normal Vending Route Servicer Required: No Beliefs That Will Affect Care: None marital status: Current Living Situation: Spouse Current Living Situation Comment: own home current occupational status: disabled Feels Safe at Home: Yes Assistive Devices: Brace/Splint/Immobilizer and Walker Allergies Allergies Allergy/AdvReac Type Severity Reaction Status Date / Time No Known Allergies Allergy Verified 09/11/20 11:56 Home Meds Home Medications Medication Instructions Recorded Confirmed atorvastatin 80 mg tablet 80 mg PO HS 07/10/18 09/11/20 baclofen 5 mg tablet 5 mg PO QAM tab 07/10/18 09/11/20 carvedilol 12.5 mg tablet 12.5 mg PO BID 07/10/18 09/11/20 clopidogrel 75 mg tablet 75 mg PO QAM 07/10/18 09/11/20 insulin glargine 100 unit/mL See Rx Instructions .ROUTE 07/10/18 09/11/20 subcutaneous solution .COMPLEX ml metformin 1,000 mg tablet 1,000 mg PO BID 07/10/18 09/11/20 insulin aspart U-100 [Novolog 10 unit SUBCUT AC 09/08/18 09/11/20 U-100 Insulin aspart] nitroglycerin 0.4 mg SUBLINGUAL DIRECTED PRN 08/09/19 09/11/20 amlodipine [Norvasc] 5 mg PO QAM 01/22/20 09/11/20 ondansetron 4 mg PO Q4H PRN 01/22/20 09/11/20 aspirin 81 mg PO QAM 03/18/20 09/11/20 warfarin 5 mg PO MOFR 03/18/20 09/11/20 warfarin 7.5 mg PO SUTUWETHSA 03/18/20 09/11/20 lisinopril 30 mg PO DAILY 09/11/20 09/11/20 Results & Data (ED) Vital Signs Vital Signs - 24 hr 09/11/20 10:14 09/11/20 10:43 09/11/20 10:53 Temperature 36.5 C Temperature Source Oral Pulse Rate 72 65 Pulse Rate from SpO2 Sensor Respiratory Rate 17 16 Blood Pressure 114/70 Blood Pressure Mean 84 Blood Pressure Position Sitting Pulse Oximetry 98 Oxygen Delivery Method Room Air Room Air Sepsis Recent Fever Within 48 Hours Yes Sepsis New/Unexplained Change in Mental Status No Sepsis Action Taken by Nursing No Action Required 09/11/20 11:00 09/11/20 11:30 09/11/20 11:51 Temperature Temperature Source Pulse Rate 69 72 68 Pulse Rate from SpO2 Sensor Respiratory Rate 14 15 15 Blood Pressure 106/50 L Blood Pressure Mean 68 Blood Pressure Position Pulse Oximetry Oxygen Delivery Method Sepsis Recent Fever Within 48 Hours Sepsis New/Unexplained Change in Mental Status Sepsis Action Taken by Nursing 09/11/20 12:00 09/11/20 12:37 09/11/20 13:00 Temperature Temperature Source Pulse Rate 67 75 66 Pulse Rate from SpO2 Sensor Respiratory Rate 2 L 18 17 Blood Pressure Blood Pressure Mean Blood Pressure Position Pulse Oximetry Oxygen Delivery Method Sepsis Recent Fever Within 48 Hours Sepsis New/Unexplained Change in Mental Status Sepsis Action Taken by Nursing 09/11/20 13:22 09/11/20 13:23 09/11/20 13:30 Temperature Temperature Source Pulse Rate 72 74 72 Pulse Rate from SpO2 Sensor Respiratory Rate 17 17 10 L Blood Pressure 139/78 138/92 Blood Pressure Mean 98 107 Blood Pressure Position Pulse Oximetry Oxygen Delivery Method Sepsis Recent Fever Within 48 Hours Sepsis New/Unexplained Change in Mental Status Sepsis Action Taken by Nursing 09/11/20 14:00 09/11/20 14:30 09/11/20 14:31 Temperature Temperature Source Pulse Rate 73 86 78 Pulse Rate from SpO2 Sensor Respiratory Rate 14 13 18 Blood Pressure 134/66 162/71 H Blood Pressure Mean 88 101 Blood Pressure Position Pulse Oximetry Oxygen Delivery Method Sepsis Recent Fever Within 48 Hours Sepsis New/Unexplained Change in Mental Status Sepsis Action Taken by Nursing 09/11/20 14:56 09/11/20 15:08 09/11/20 15:30 Temperature Temperature Source Pulse Rate 86 91 H 85 Pulse Rate from SpO2 Sensor 84 Respiratory Rate 23 12 Blood Pressure 159/109 H 114/58 L Blood Pressure Mean 125 76 Blood Pressure Position Pulse Oximetry 98 Oxygen Delivery Method Sepsis Recent Fever Within 48 Hours Sepsis New/Unexplained Change in Mental Status Sepsis Action Taken by Nursing 09/11/20 16:00 09/11/20 16:30 09/11/20 16:31 Temperature Temperature Source Pulse Rate 80 90 80 Pulse Rate from SpO2 Sensor Respiratory Rate 18 21 19 Blood Pressure 141/75 H 125/82 Blood Pressure Mean 97 96 Blood Pressure Position Pulse Oximetry Oxygen Delivery Method Sepsis Recent Fever Within 48 Hours Sepsis New/Unexplained Change in Mental Status Sepsis Action Taken by Nursing 09/11/20 17:00 09/11/20 17:30 09/11/20 17:31 Temperature Temperature Source Pulse Rate 85 77 78 Pulse Rate from SpO2 Sensor Respiratory Rate 24 17 17 Blood Pressure 118/78 130/61 Blood Pressure Mean 91 84 Blood Pressure Position Pulse Oximetry Oxygen Delivery Method Sepsis Recent Fever Within 48 Hours Sepsis New/Unexplained Change in Mental Status Sepsis Action Taken by [facility] Medications Current Medication List: was personally reviewed by me Laboratory Data Attestation: I reviewed the patient's lab results. Result diagrams: 09/11/20 12:17 09/11/20 12:17 Lab Results 09/11/20 09/11/20 09/11/20 Range/Units 12:17 12:17 12:17 WBC 9.90 (4.8-10.8) K/uL RBC 5.41 (4.7-6.1) M/uL Hgb 14.2 (14.0-18.0) g/dL Hct 40.3 L (42-52) % MCV 74.5 L (80-100) fL MCH 26.2 (25-34) pg MCHC 35.2 (32-36) g/dL RDW Std Deviation 39.6 (36.4-46.3) fL RDW Coeff of Caroline 14.6 H (11.5-14.5) % Plt Count 205 (130-400) K/uL MPV 10.2 (7.4-10.4) fL Immature Gran % (Auto) 0.2 % Neut % (Auto) 77.2 % Lymph % (Auto) 14.0 % Martin % (Auto) 7.1 % Eos % (Auto) 1.3 % Baso % (Auto) 0.2 % Neut # (Auto) 7.64 H (1.4-6.5) K/uL Lymph # (Auto) 1.39 (1.2-3.4) K/uL Martin # (Auto) 0.70 H (0.11-0.59) K/uL Eos # (Auto) 0.13 (0-0.5) K/uL Baso # (Auto) 0.02 (0-0.2) K/uL Immature Gran # (Auto) 0.02 (0.00-0.02) K/uL Ovalocytes 1+ Echinocytes 1+ PT (9.0-12.0) Seconds INR (0.9-1.1) Sodium 129 L (136-145) mmol/L Potassium 3.8 (3.5-5.1) mmol/L Chloride 95 L (98-107) mmol/L Carbon Dioxide 25 (21-32) mmol/L Anion Gap 9.0 (3-11) BUN 30 H (7-18) mg/dl Creatinine 1.18 (0.6-1.4) mg/dl Est Cr Clr Drug Dosing 74.2 ml/min Est GFR ( Amer) 76.2 Est GFR (Non-Af Amer) 65.7 BUN/Creatinine Ratio 25.6 H (10-20) Glucose 199 H (70-99) mg/dl Osmolality (280-300) mOsm/kg Lactate 3.2 H* (0.4-2.0) mmol/L Calcium 8.7 (8.5-10.1) mg/dl Magnesium 1.7 L (1.8-2.4) mg/dl Total Bilirubin 0.4 (0.2-1) mg/dl AST 12 L (15-37) U/L ALT 19 (12-78) U/L Alkaline Phosphatase 130 H (45-117) U/L Troponin I 0.041 (0-0.045) ng/ml Total Protein 6.9 (6.4-8.2) gm/dl Albumin 3.0 L (3.4-5.0) gm/dl Globulin 3.9 (2.5-4.0) gm/dl Albumin/Globulin Ratio 0.8 L (0.9-2) TSH 1.510 (0.300-4.500) uIu/ml Urine Color Urine Appearance (Clear) Urine pH (4.5-7.5) Ur Specific [place] (1.000-1.030) Urine Protein (Negative) Urine Glucose (UA) (Negative) Urine Ketones (Negative) Urine Blood (Negative) Urine Nitrite (Negative) Urine Bilirubin (Negative) Urine Urobilinogen (Negative) Ur Leukocyte Esterase (Negative) Urine Osmolality (500-800) mOsm/kg Ur Random Sodium mmol/L COVID-19 Eval Order SARS-CoV-2 (PCR) (Negative) Influenza Type A (PCR) (Neg) Influenza Type B (PCR) (Neg) RSV (RT-PCR) (Neg) 09/11/20 09/11/20 09/11/20 Range/Units 13:15 15:30 15:30 WBC (4.8-10.8) K/uL RBC (4.7-6.1) M/uL Hgb (14.0-18.0) g/dL Hct (42-52) % MCV (80-100) fL MCH (25-34) pg MCHC (32-36) g/dL RDW Std Deviation (36.4-46.3) fL RDW Coeff of Caroline (11.5-14.5) % Plt Count (130-400) K/uL MPV (7.4-10.4) fL Immature Gran % (Auto) % Neut % (Auto) % Lymph % (Auto) % Martin % (Auto) % Eos % (Auto) % Baso % (Auto) % Neut # (Auto) (1.4-6.5) K/uL Lymph # (Auto) (1.2-3.4) K/uL Martin # (Auto) (0.11-0.59) K/uL Eos # (Auto) (0-0.5) K/uL Baso # (Auto) (0-0.2) K/uL Immature Gran # (Auto) (0.00-0.02) K/uL Ovalocytes Echinocytes PT (9.0-12.0) Seconds INR (0.9-1.1) Sodium (136-145) mmol/L Potassium (3.5-5.1) mmol/L Chloride (98-107) mmol/L Carbon Dioxide (21-32) mmol/L Anion Gap (3-11) BUN (7-18) mg/dl Creatinine (0.6-1.4) mg/dl Est Cr Clr Drug Dosing ml/min Est GFR ( Amer) Est GFR (Non-Af Amer) BUN/Creatinine Ratio (10-20) Glucose (70-99) mg/dl Osmolality (280-300) mOsm/kg Lactate (0.4-2.0) mmol/L Calcium (8.5-10.1) mg/dl Magnesium (1.8-2.4) mg/dl Total Bilirubin (0.2-1) mg/dl AST (15-37) U/L ALT (12-78) U/L Alkaline Phosphatase (45-117) U/L Troponin I (0-0.045) ng/ml Total Protein (6.4-8.2) gm/dl Albumin (3.4-5.0) gm/dl Globulin (2.5-4.0) gm/dl Albumin/Globulin Ratio (0.9-2) TSH (0.300-4.500) uIu/ml Urine Color Yellow Urine Appearance Clear (Clear) Urine pH 5.0 (4.5-7.5) Ur Specific [place] 1.017 (1.000-1.030) Urine Protein Negative (Negative) Urine Glucose (UA) Negative (Negative) Urine Ketones Negative (Negative) Urine Blood Negative (Negative) Urine Nitrite Negative (Negative) Urine Bilirubin Negative (Negative) Urine Urobilinogen Negative (Negative) Ur Leukocyte Esterase Negative (Negative) Urine Osmolality (500-800) mOsm/kg Ur Random Sodium mmol/L COVID-19 Eval Order CovFluRsv at [facility] SARS-CoV-2 (PCR) NEGATIVE (Negative) Influenza Type A (PCR) Negative (Neg) Influenza Type B (PCR) Negative (Neg) RSV (RT-PCR) Negative (Neg) 09/11/20 09/11/20 09/11/20 Range/Units 15:50 15:50 16:46 WBC (4.8-10.8) K/uL RBC (4.7-6.1) M/uL Hgb (14.0-18.0) g/dL Hct (42-52) % MCV (80-100) fL MCH (25-34) pg MCHC (32-36) g/dL RDW Std Deviation (36.4-46.3) fL RDW Coeff of Caroline (11.5-14.5) % Plt Count (130-400) K/uL MPV (7.4-10.4) fL Immature Gran % (Auto) % Neut % (Auto) % Lymph % (Auto) % Martin % (Auto) % Eos % (Auto) % Baso % (Auto) % Neut # (Auto) (1.4-6.5) K/uL Lymph # (Auto) (1.2-3.4) K/uL Martin # (Auto) (0.11-0.59) K/uL Eos # (Auto) (0-0.5) K/uL Baso # (Auto) (0-0.2) K/uL Immature Gran # (Auto) (0.00-0.02) K/uL Ovalocytes Echinocytes PT (9.0-12.0) Seconds INR (0.9-1.1) Sodium (136-145) mmol/L Potassium (3.5-5.1) mmol/L Chloride (98-107) mmol/L Carbon Dioxide (21-32) mmol/L Anion Gap (3-11) BUN (7-18) mg/dl Creatinine (0.6-1.4) mg/dl Est Cr Clr Drug Dosing ml/min Est GFR ( Amer) Est GFR (Non-Af Amer) BUN/Creatinine Ratio (10-20) Glucose (70-99) mg/dl Osmolality (280-300) mOsm/kg Lactate 1.3 (0.4-2.0) mmol/L Calcium (8.5-10.1) mg/dl Magnesium (1.8-2.4) mg/dl Total Bilirubin (0.2-1) mg/dl AST (15-37) U/L ALT (12-78) U/L Alkaline Phosphatase (45-117) U/L Troponin I (0-0.045) ng/ml Total Protein (6.4-8.2) gm/dl Albumin (3.4-5.0) gm/dl Globulin (2.5-4.0) gm/dl Albumin/Globulin Ratio (0.9-2) TSH (0.300-4.500) uIu/ml Urine Color Urine Appearance (Clear) Urine pH (4.5-7.5) Ur Specific [place] (1.000-1.030) Urine Protein (Negative) Urine Glucose (UA) (Negative) Urine Ketones (Negative) Urine Blood (Negative) Urine Nitrite (Negative) Urine Bilirubin (Negative) Urine Urobilinogen (Negative) Ur Leukocyte Esterase (Negative) Urine Osmolality 284 L (500-800) mOsm/kg Ur Random Sodium 32 mmol/L COVID-19 Eval Order SARS-CoV-2 (PCR) (Negative) Influenza Type A (PCR) (Neg) Influenza Type B (PCR) (Neg) RSV (RT-PCR) (Neg) 09/11/20 09/11/20 Range/Units 16:48 16:48 WBC (4.8-10.8) K/uL RBC (4.7-6.1) M/uL Hgb (14.0-18.0) g/dL Hct (42-52) % MCV (80-100) fL MCH (25-34) pg MCHC (32-36) g/dL RDW Std Deviation (36.4-46.3) fL RDW Coeff of Caroline (11.5-14.5) % Plt Count (130-400) K/uL MPV (7.4-10.4) fL Immature Gran % (Auto) % Neut % (Auto) % Lymph % (Auto) % Martin % (Auto) % Eos % (Auto) % Baso % (Auto) % Neut # (Auto) (1.4-6.5) K/uL Lymph # (Auto) (1.2-3.4) K/uL Martin # (Auto) (0.11-0.59) K/uL Eos # (Auto) (0-0.5) K/uL Baso # (Auto) (0-0.2) K/uL Immature Gran # (Auto) (0.00-0.02) K/uL Ovalocytes Echinocytes PT 25.6 H (9.0-12.0) Seconds INR 2.7 H (0.9-1.1) Sodium (136-145) mmol/L Potassium (3.5-5.1) mmol/L Chloride (98-107) mmol/L Carbon Dioxide (21-32) mmol/L Anion Gap (3-11) BUN (7-18) mg/dl Creatinine (0.6-1.4) mg/dl Est Cr Clr Drug Dosing ml/min Est GFR ( Amer) Est GFR (Non-Af Amer) BUN/Creatinine Ratio (10-20) Glucose (70-99) mg/dl Osmolality 285 (280-300) mOsm/kg Lactate (0.4-2.0) mmol/L Calcium (8.5-10.1) mg/dl Magnesium (1.8-2.4) mg/dl Total Bilirubin (0.2-1) mg/dl AST (15-37) U/L ALT (12-78) U/L Alkaline Phosphatase (45-117) U/L Troponin I (0-0.045) ng/ml Total Protein (6.4-8.2) gm/dl Albumin (3.4-5.0) gm/dl Globulin (2.5-4.0) gm/dl Albumin/Globulin Ratio (0.9-2) TSH (0.300-4.500) uIu/ml Urine Color Urine Appearance (Clear) Urine pH (4.5-7.5) Ur Specific [place] (1.000-1.030) Urine Protein (Negative) Urine Glucose (UA) (Negative) Urine Ketones (Negative) Urine Blood (Negative) Urine Nitrite (Negative) Urine Bilirubin (Negative) Urine Urobilinogen (Negative) Ur Leukocyte Esterase (Negative) Urine Osmolality (500-800) mOsm/kg Ur Random Sodium mmol/L COVID-19 Eval Order SARS-CoV-2 (PCR) (Negative) Influenza Type A (PCR) (Neg) Influenza Type B (PCR) (Neg) RSV (RT-PCR) (Neg) Administered Medications Discontinued Medications Sodium Chloride (Nss) 500 mls @ 999 mls/hr IV .Q31M SUMA Stop: 09/11/20 12:15 Last Infusion: 09/11/20 14:30 Dose: 0 mls/hr Documented by: [id number] Admin: 09/11/20 13:27 Dose: 999 mls/hr Documented by: [id number] Sodium Chloride (Nss 1000ml) 500 mls @ 999 mls/hr IV .Q31M ONE Stop: 09/11/20 13:27 Last Infusion: 09/11/20 14:00 Dose: 0 mls/hr Documented by: [id number] Admin: 09/11/20 13:27 Dose: 999 mls/hr Documented by: [id number] Magnesium Sulfate/Dextrose (Magnesium Sulfate / D5w) 1 gm in 100 mls @ 100 mls/hr IV NOW STA Stop: 09/11/20 13:56 Last Infusion: 09/11/20 14:41 Dose: 0 mls/hr Documented by: [id number] Admin: 09/11/20 13:41 Dose: 100 mls/hr Documented by: [id number] Cefepime HCl (Maxipime) 2,000 mg in 20 mls @ 5 mls/min IV NOW STA; Protocol Stop: 09/11/20 13:55 Last Admin: 09/11/20 14:53 Dose: 5 mls/min Documented by: [id number] Imaging Data Radiologist's Impression: Chest X-Ray 09/11/20 11:35 XR chest 1V portable CLINICAL HISTORY: Weakness. COMPARISON STUDY: Chest radiograph March 18, 2020. FINDINGS: Lung volumes are normal. Lungs are clear. There is no pneumothorax or pleural effusion. Cardiac size is normal. Mediastinal contours are normal. There is no evidence for pulmonary edema. Mediastinal clips and median sternotomy wires are noted. IMPRESSION: No acute cardiopulmonary findings. ACT 112: Negative or not required by law. Electronically signed by: Pal Blunt M.D. 09/11/2020 11:[address] 09/11/20 11:35 CT head/brain wo con CLINICAL HISTORY: 60 years-old Male with lethargy. Acutely altered mental status TECHNIQUE: Multiple axial CT images of the head were obtained without contrast. A dose lowering technique was utilized adhering to the principles of ALARA. CT DOSE: 2652.25 mGy.cm COMPARISON: Head CT 03/18/2020. FINDINGS: No acute intracranial hemorrhage, midline shift, intracranial mass, hydrocephalus, territorial ischemia or abnormal extra-axial collection. Motion degraded exam. The exam was then repeated which was also motion degraded. White matter hypodensity suggestive chronic microvascular ischemic disease. Involutional changes with chronic microvascular ischemic disease. Chronic appearing lacunar infarcts of the basal ganglia, inferior right cerebellar hemisphere and sarabjit. Cerebral vascular calcifications. The calvarium is intact. The paranasal sinuses, mastoid air cells, and middle ear cavities are clear. IMPRESSION: Motion degraded exam. No acute intracranial abnormality. ACT 112: Negative or not required by law. The above report was generated using voice recognition software. It may contain grammatical, syntax or spelling errors. Electronically signed by: Antonino Gr M.D. 09/11/2020 3:20 PM Discharge Plan Visit Data Chief Complaint: Weakness ED Provider: Donny Steele Discharge Problem: Acute confusion, Hypomagnesemia, Weakness, Fever, Acute hyponatremia Patient Disposition: Admitted As Inpatient Condition: Fair Discharge Instructions Interventions: ED Discharge Assessment Last Done: 09/11/20 17:44 Forms Stand Alone Forms: [facility] [employer] Prescriptions Prescriptions: No Action carvedilol 12.5 mg tablet 12.5 mg PO BID RF: 0 insulin glargine [Lantus U-100 Insulin] 100 unit/mL solution See Rx Instructions .ROUTE .COMPLEX RF: 0 clopidogrel [Plavix] 75 mg tablet 75 mg PO QAM RF: 0 atorvastatin [Lipitor] 80 mg tablet 80 mg PO HS RF: 0 metformin 1,000 mg tablet 1,000 mg PO BID RF: 0 baclofen 5 mg tablet 5 mg PO QAM RF: 0 insulin aspart U-100 [Novolog U-100 Insulin aspart] 100 unit/mL Solution 10 unit SUBCUT AC RF: 0 nitroglycerin 0.4 mg tablet, sublingual 0.4 mg sublingual DIRECTED PRN (Reason: Chest Pain) RF: 0 amlodipine [Norvasc] 5 mg tablet 5 mg PO QAM RF: 0 ondansetron 4 mg tablet,disintegrating 4 mg PO Q4H PRN (Reason: Nausea) RF: 0 aspirin 81 mg Tablet,Delayed Release (Dr/Ec) 81 mg PO QAM RF: 0 warfarin 5 mg tablet 5 mg PO MOFR RF: 0 warfarin 5 mg tablet 7.5 mg PO SUTUWETHSA RF: 0 lisinopril 30 mg tablet 30 mg PO DAILY RF: 0 Referrals Referrals: Dereck Zaman DO [Primary Care Provider] - Discharge Problem: Fever Qualifiers: Fever type: unspecified Qualified Code(s): R50.9 - Fever, unspecified
[2020-09-11] MEDS ORDERED: SODIUM CHLORIDE 0.9% 500 ML IV SCH (11:45)
--- NOTE | 2020-09-11 11:54 | XRay Report ---
XR chest 1V portable CLINICAL HISTORY: Weakness. COMPARISON STUDY: Chest radiograph March 18, 2020. FINDINGS: Lung volumes are normal. Lungs are clear. There is no pneumothorax or pleural effusion. Car diac size is normal. Mediastinal contours are normal. There is no evidence for pulmonary edema. Media stinal clips and median sternotomy wires are noted. IMPRESSION: No acute cardiopulmonary findings. ACT 112: Negative or not required by law. Electronically signed by: Pal Blunt M.D. 09/11/2020 11:52 AM
[2020-09-11 12:42] LABS: Basophils # (auto) 0.02 K/uL (0-0.2); Basophils % (auto) 0.2 %; Eosinophils # (auto) 0.13 K/uL (0-0.5); Eosinophils % (auto) 1.3 %; Hematocrit (blood only) 40.3 % (42-52); Hemoglobin 14.2 g/dL (14.0-18.0); Immature Granulocytes # (auto) 0.02 K/uL (0.00-0.02); Immature Granulocytes % (auto) 0.2 %; Lymphocytes # (auto) 1.39 K/uL (1.2-3.4); Mean Corpuscular Hemoglobin 26.2 pg (25-34); Mean Corpuscular Hgb Conc 35.2 g/dL (32-36); Mean Corpuscular Volume 74.5 fL (80-100); Mean Platelet Volume 10.2 fL (7.4-10.4); Monocytes % (auto) 7.1 %; Neutrophils # (auto) 7.64 K/uL (1.4-6.5); Neutrophils % (auto) 77.2 %; Platelet Count 205 K/uL (130-400); RDW Coefficient of Variation 14.6 % (11.5-14.5); RDW Standard Deviation 39.6 fL (36.4-46.3); Red Blood Count 5.41 M/uL (4.7-6.1)
[2020-09-11 12:54] LABS: BUN Creatinine Ratio 25.6 (10-20); Calcium 8.7 mg/dl (8.5-10.1); Creatinine Clr Calc Pharmacy 74.2 ml/min; Est GFR (African American) 76.2; Est GFR (Non-African American) 65.7; Magnesium 1.7 mg/dl (1.8-2.4); Potassium 3.8 mmol/L (3.5-5.1)
[2020-09-11] MEDS ORDERED: SODIUM CHLORIDE 0.9% 1000ML 500 ML IV ONE (12:57)
[2020-09-11] MEDS ORDERED: MAGNESIUM SULFATE / D5W 1 GM/100 ML BAG IV STA (12:57)
[2020-09-11 13:05] LABS: Albumin Globulin Ratio 0.8 (0.9-2); Bilirubin,Total 0.4 mg/dl (0.2-1); Globulin 3.9 gm/dl (2.5-4.0); Thyroid Stimulating Hormone 1.51 uIu/ml (0.300-4.500); Total Protein 6.9 gm/dl (6.4-8.2); Troponin I 0.041 ng/ml (0-0.045)
[2020-09-11 13:06] LABS: Echinocytes 1+; Ovalocytes 1+
[2020-09-11] MEDS ORDERED: CEFEPIME 2,000 MG/20 ML VIAL IV STA (13:52)
[2020-09-11 14:53] LABS: Appearance Urine Clear (Clear); Bilirubin Urine Negative (Negative); Blood Urine Negative (Negative); Color Urine Yellow; Glucose Urine UA Negative (Negative); Ketones Urine Negative (Negative); Leukocyte Esterase Urine Negative (Negative); Nitrite Urine Negative (Negative); Protein Urine Negative (Negative); Specific Gravity Urine 1.017 (1.000-1.030); Urobilinogen Urine Negative (Negative)
--- NOTE | 2020-09-11 15:22 | CT Scan Report ---
CT head/brain wo con CLINICAL HISTORY: 60 years-old Male with lethargy. Acutely altered mental status TECHNIQUE: Multiple axial CT images of the head were obtained without contrast. A dose lowering tech nique was utilized adhering to the principles of ALARA. CT DOSE: 2652.25 mGy.cm COMPARISON: Head CT 03/18/2020. FINDINGS: No acute intracranial hemorrhage, midline shift, intracranial mass, hydrocephalus, territorial ischem ia or abnormal extra-axial collection. Motion degraded exam. The exam was then repeated which was als o motion degraded. White matter hypodensity suggestive chronic microvascular ischemic disease. Involu tional changes with chronic microvascular ischemic disease. Chronic appearing lacunar infarcts of the basal ganglia, inferior right cerebellar hemisphere and sarabjit. Cerebral vascular calcifications. The calvarium is intact. The paranasal sinuses, mastoid air cells, and middle ear cavities are clear . IMPRESSION: Motion degraded exam. No acute intracranial abnormality. ACT 112: Negative or not required by law. The above report was generated using voice recognition software. It may contain grammatical, syntax o r spelling errors. Electronically signed by: Antonino Gr M.D. 09/11/2020 3:20 PM
--- NOTE | 2020-09-11 15:58 | Electrocardiogram Report ---
Test Reason : Blood Pressure : / mmHG Vent. Rate : 070 BPM Atrial Rate : 070 BPM P-R Int : 154 ms QRS Dur : 090 ms QT Int : 402 ms P-R-T Axes : 054 028 130 degrees QTc Int : 434 ms Normal sinus rhythm Left atrial enlargement Inferior infarct (cited on or before 13-OCT-2006) Anterolateral infarct (cited on or before 13-OCT-2006) Abnormal ECG When compared with ECG of 18-MAR-2020 11:40, No significant change was found Confirmed by Clemente Samayoa ([id number]) on 09/11/2020 3:58:29 PM Referred By: Confirmed By:Clemente Samayoa
--- NOTE | 2020-09-11 16:40 | History & Physical Report ---
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 concerned about pt cognition this morning and concern for stroke vs maybe low blood sugar; therefore EMS was summoned. Pt did not have new neurofocal deficit, continues with RHP, dysarthria and mild cog impairment. He received 1L of IVF in ED and feels he is at baseline currently. admit to med tele obtain urine osm & na, serum osm appears to be hypotonic hyponatremia, corrected 131 received 1 L of IVF in ED give additional 1 L cautiously 2/2 to aortic valve stenosis repeat bmp @ 9pm and in a.m. PT/OT sx possibly in setting of low sodium, recent covid 19 vaccine, mild dehydration if mental status change re occurs consider MRI LOOSE STOOL/BRIGHT RED pt with episode of 2 loose stool in ED, 1 with bright red jelly substance no julio c bleeding noted on exam Hemoccult all stools, monitor hgb abd exam benign (4) Hypomagnesemia: received 1g mag sulfate in ED repeat (5) Status post administration of all doses of COVID-19 vaccine series: pt completed covid-19 vaccine series, TuesdaySeptember 08. Spiked fever on September 09 with generalized weakness, tmax 102.9 Likely mounted immune response and anticipated reaction of vaccine. Fever has subsided and has not returned. No apparent infection, but will monitor closely for fever. (6) Status post cerebrovascular accident: hx of cva with residual RHP, dysphagia consult Pt/Ot continue Statin, plavix, asa, wafarin inr pending (7) Type 2 diabetes mellitus: BSG 199 in ED Last a1c 7.1, controlled lantus/novolog per protocol (8) CAD (coronary artery disease): pt with significant vascular disease including carotid artery stenosis, SMA stenosis, PAD HX of PAF on warfarin History of CABG x3 Continue ASA, statin, Plavix, Coreg and lisinopril EKG reviewed and unchanged from prior tracing on 03/2020 INR 2.7 continue home regimen of warfarin 5mg MoFr and 7.5mg all other days (9) Aortic valve stenosis: echo 10/2019, EF 65 to 69%: Left atrium mildly enlarged, small apical wall motion normality with akinesis of apical septal and anterior apical segments, aortic valve severely calcified, borderline severe aortic valve stenosis, grade 1 diastolic dysfxn monitor volume status closely (10) HTN (hypertension): Bp controlled, a bit high side in ED continue amlodipine, coreg, lisinopril wiht parameters (11) DVT prophylaxis: warfarin, INR 2.7 continue Dispo:med tele, case management consulted for discharge needs, PT/OT PCP: Junie FULL CODE Pt was seen and examined in collaboration with Dr. Emanuel, please see addendum History of Present Illness Chief Complaint: weakness and confusion x 1 day. 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 Of significance patient received his second Covid vaccine on 09/08. On 09/09 patient had increased weakness, "felt spacey, ill feeling and had a T-max of 102.9. gave patient Tylenol which resolved fever and did not be presented self. However he continues to feel weak and "spacey." This morning when patient was sitting at table eating breakfast felt he was more confused. She got very concerned due to his prior history of stroke as well as diabetes. She put ice under his tongue due to concern for hypoglycemia and called EMS. When they arrived BSG's were in 200s and he was brought to ED. In ED he remained hemodynamically stable. CT head was negative for acute abnormality. Lab work notable for hyponatremia with sodium of 129, corrected at 131, hypochloremia 95, BUN 30, creatinine 1.19, elevated lactic acid 3.2. He also begum d mild hypomagnesemia. He did have significant EKG anterior ischemic change however this was also present on EKG from March 2020 and he was without chest pain. In ED he received 1 L of IV fluid, 2 g IV cefepime and 1 g of magnesium sulfate. feels from cognitive standpoint he has improved since ibuprofen. Over the past 3 days his appetite has been normal and she has been pushing fluids to prevent dehydration. Approx 10- 8oz glasses daily. While in ED nurse reported 2 loose bowel movements, with last one having a red jelly substance. Allergies Allergy/AdvReac Type Severity Reaction Status Date / Time No Known Allergies Allergy Verified 09/11/20 11:56 Home Medications Medication Instructions Recorded Confirmed Type atorvastatin 80 mg tablet 80 mg PO HS 07/10/18 09/11/20 History baclofen 5 mg tablet 5 mg PO QAM tab 07/10/18 09/11/20 History carvedilol 12.5 mg tablet 12.5 mg PO BID 07/10/18 09/11/20 History clopidogrel 75 mg tablet 75 mg PO QAM 07/10/18 09/11/20 History insulin glargine 100 unit/mL See Rx Instructions .ROUTE 07/10/18 09/11/20 History subcutaneous solution .COMPLEX ml metformin 1,000 mg tablet 1,000 mg PO BID 07/10/18 09/11/20 History insulin aspart U-100 [Novolog 10 unit SUBCUT AC 09/08/18 09/11/20 History U-100 Insulin aspart] nitroglycerin 0.4 mg SUBLINGUAL DIRECTED PRN 08/09/19 09/11/20 History amlodipine [Norvasc] 5 mg PO QAM 01/22/20 09/11/20 History ondansetron 4 mg PO Q4H PRN 01/22/20 09/11/20 History aspirin 81 mg PO QAM 03/18/20 09/11/20 History warfarin 5 mg PO MOFR 03/18/20 09/11/20 History warfarin 7.5 mg PO SUTUWETHSA 03/18/20 09/11/20 History lisinopril 30 mg PO DAILY 09/11/20 09/11/20 History 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" Aortic valve stenosis BPH with obstruction/lower urinary tract symptoms CAD (coronary artery disease) Carotid stenosis Diabetic peripheral neuropathy associated with type 2 diabetes mellitus Dyslipidemia Hemiplegia affecting right dominant side History of pancreatitis HTN (hypertension) Hypomagnesemia Monoplegia affecting right dominant side Obesity Osteomyelitis of great toe of right foot Proliferative diabetic retinopathy Retinal edema Right foot drop Status post cerebrovascular accident Status post myocardial infarction Superior mesenteric artery stenosis Type 2 diabetes mellitus Surgical History Hx of vitrectomy S/P angioplasty with stent S/P CABG x 3 S/P PTCA (percutaneous transluminal coronary angioplasty) Family History Father Heart disease Social History Smoking Status: Former smoker Tobacco Type: Cigarettes Second Hand Exposure: No; Do You Dip or Chew Tobacco: No; Tobacco Cessation Education Requested by Patient: No Hx Alcohol Use: Yes Alcohol type: beer Hx Substance Use: No Preferred Language: Faroese Communication Ability: Effective Communication Ability Comment: Intermittent Confusion and history of CVA. Visual Impairment: No Limitations Hearing Ability: Normal Physician Office Secretary Required: No Beliefs That Will Affect Care: None and Adventism marital status: Current Living Situation: Spouse Current Living Situation Comment: own home current occupational status: disabled Other Information That Helps Us Care for You: No Feels Safe at Home: Yes Safety Concerns: Feels Safe At This Time Assistive Devices: Glasses and Walker Review of Systems Review of Systems: All systems reviewed & are unremarkable except as noted in HPI & below Physical Exam Physical Exam: Constitutional: Chronically ill-appearing male, WD/WN, vitals as above, NAD, sitting up in bed, pleasant, conversing easily Head: Normocephalic, Atraumatic Eyes: PERRL, conjunctivae normal, anicteric sclerae ENMT: external ear and nose normal, oropharynx normal mucous membranes dry Neck: trachea midline, no thyromegaly normal visual inspection Respiratory: normal respiratory effort, lungs clear to auscultation, no wheeze, rales, rhonchi. Normal insp/exp effort, no accessory muscle use Cardiovascular: RRR, harsh 3/6 ULISES noted throughout precordium, best RUSB, no edema Vessels: no JVD or carotid bruit Chest: normal inspection of chest Abdomen: normal bowel sounds, soft, nontender, no hepatosplenomegaly Musculoskeletal: no cyanosis or clubbing, patient with right hemiplegia, upper extremity 3/5, right leg brace in place, Skin: no rashes, warm and dry normal turgor Neurologic: PERRL, EOMI, accommodation nl, no face palsy, no dysarthria CN's II-XI intact bilaterally and moves all extremities Psychiatric: A+Ox3, answers questions appropriately euthymic affect Lymphatic: no cervical or axillary lymphadenopathy : red, jelly stool noted on bed sheet Results & Data Results & Data ([facility]) Vital Signs (Past 12 Hours) Vital Signs Temp Pulse Resp BP Pulse Ox 09/11/20 15:08 91 H 23 09/11/20 14:56 86 159/109 H 09/11/20 14:31 78 18 162/71 H 09/11/20 14:30 86 13 09/11/20 14:00 73 14 134/66 09/11/20 13:30 72 10 L 138/92 09/11/20 13:23 74 17 09/11/20 13:22 72 17 139/78 09/11/20 13:00 66 17 09/11/20 12:37 75 18 09/11/20 12:00 67 2 L 09/11/20 11:51 68 15 106/50 L 09/11/20 11:30 72 15 09/11/20 11:00 69 14 09/11/20 10:53 65 16 09/11/20 10:14 36.5 C 72 17 114/70 98 Diagnostic Findings Chest X-Ray 09/11/20 11:35 XR chest 1V portable CLINICAL HISTORY: Weakness. COMPARISON STUDY: Chest radiograph March 18, 2020. FINDINGS: Lung volumes are normal. Lungs are clear. There is no pneumothorax or pleural effusion. Cardiac size is normal. Mediastinal contours are normal. There is no evidence for pulmonary edema. Mediastinal clips and median sternotomy wires are noted. IMPRESSION: No acute cardiopulmonary findings. ACT 112: Negative or not required by law. Electronically signed by: Pal Blunt M.D. 09/11/2020 11:[address] 09/11/20 11:35 CT head/brain wo con CLINICAL HISTORY: 60 years-old Male with lethargy. Acutely altered mental status TECHNIQUE: Multiple axial CT images of the head were obtained without contrast. A dose lowering technique was utilized adhering to the principles of ALARA. CT DOSE: 2652.25 mGy.cm COMPARISON: Head CT 03/18/2020. FINDINGS: No acute intracranial hemorrhage, midline shift, intracranial mass, hydrocephalus, territorial ischemia or abnormal extra-axial collection. Motion degraded exam. The exam was then repeated which was also motion degraded. White matter hypodensity suggestive chronic microvascular ischemic disease. Involutional changes with chronic microvascular ischemic disease. Chronic appearing lacunar infarcts of the basal ganglia, inferior right cerebellar hemisphere and sarabjit. Cerebral vascular calcifications. The calvarium is intact. The paranasal sinuses, mastoid air cells, and middle ear cavities are clear. IMPRESSION: Motion degraded exam. No acute intracranial abnormality. ACT 112: Negative or not required by law. The above report was generated using voice recognition software. It may contain grammatical, syntax or spelling errors. Electronically signed by: Antonino Gr M.D. 09/11/2020 3:20 PM Medications Administered Discontinued Medications Sodium Chloride (Nss) 500 mls @ 999 mls/hr IV .Q31M SUMA Stop: 09/11/20 12:15 Last Infusion: 09/11/20 14:30 Dose: 0 mls/hr Documented by: [id number] Admin: 09/11/20 13:27 Dose: 999 mls/hr Documented by: [id number] Sodium Chloride (Nss 1000ml) 500 mls @ 999 mls/hr IV .Q31M ONE Stop: 09/11/20 13:27 Last Infusion: 09/11/20 14:00 Dose: 0 mls/hr Documented by: [id number] Admin: 09/11/20 13:27 Dose: 999 mls/hr Documented by: [id number] Magnesium Sulfate/Dextrose (Magnesium Sulfate / D5w) 1 gm in 100 mls @ 100 mls/hr IV NOW STA Stop: 09/11/20 13:56 Last Infusion: 09/11/20 14:41 Dose: 0 mls/hr Documented by: [id number] Admin: 09/11/20 13:41 Dose: 100 mls/hr Documented by: [id number] Cefepime HCl (Maxipime) 2,000 mg in 20 mls @ 5 mls/min IV NOW STA; Protocol Stop: 09/11/20 13:55 Last Admin: 09/11/20 14:53 Dose: 5 mls/min Documented by: [id number] ECG Rate (beats per minute): 70 Rhythm: normal sinus Findings: + acute ischemic change Additional Comments: Patient with ST elevation anteriorly lead I T wave i nversion, elevation in 3 and aVF This was compared to EKG on 03/18/2020 and was similar COVID- Results Results COVID- Adm Lab Results: RBC 4.59 M/uL (4.7-6.1) L 09/16/20 WBC 5.38 K/uL (4.8-10.8) 09/16/20 Hgb 11.7 g/dL (14.0-18.0) L 09/16/20 Hct 34.7 % (42-52) L 09/16/20 Plt Count 253 K/uL (130-400) 09/16/20 Neutrophils (%) (Auto) 48.5 % 09/16/20 Lymphocytes (%) (Auto) 40.7 % 09/16/20 Monocytes # (Auto) 0.36 K/uL (0.11-0.59) 09/16/20 Eosinophils # (Auto) 0.19 K/uL (0-0.5) 09/16/20 Immature Granulocyte % (Auto) 0.2 % 09/16/20 Neutrophils # (Auto) 2.61 K/uL (1.4-6.5) 09/16/20 Lymphocytes # (Auto) 2.19 K/uL (1.2-3.4) 09/16/20 Monocytes # (Auto) 0.36 K/uL (0.11-0.59) 09/16/20 Eosinophils # (Auto) 0.19 K/uL (0-0.5) 09/16/20 Basophils # (Auto) 0.02 K/uL (0-0.2) 09/16/20 Immature Granulocyte # (Auto) 0.01 K/uL (0.00-0.02) 09/16/20 Echinocytes 1+ 09/11/20 Ovalocytes 1+ 09/11/20 Na 139 mmol/L (136-145) 09/16/20 K 4.0 mmol/L (3.5-5.1) 09/16/20 Cl 106 mmol/L (98-107) 09/16/20 CO2 27 mmol/L (21-32) 09/16/20 Anion Gap 6.0 (3-11) 09/16/20 BUN 14 mg/dl (7-18) 09/16/20 Creatinine 0.72 mg/dl (0.6-1.4) 09/16/20 BUN/Creatinine Ratio 20.1 (10-20) H 09/16/20 Glucose Level 170 mg/dl (70-99) H 09/16/20 Ca 8.3 mg/dl (8.5-10.1) L 09/16/20 Total Bilirubin 0.4 mg/dl (0.2-1) 09/11/20 AST/SGOT 12 U/L (15-37) L 09/11/20 ALT/SGPT 19 U/L (12-78) 09/11/20 Alkaline Phosphatase 130 U/L (45-117) H 09/11/20 Total Protein 6.9 gm/dl (6.4-8.2) 09/11/20 Albumin 3.0 gm/dl (3.4-5.0) L 09/11/20 Globulin 3.9 gm/dl (2.5-4.0) 09/11/20 Albumin/Globulin Ratio 0.8 (0.9-2) L 09/11/20 Troponin I 0.034 ng/ml (0-0.045) 09/12/20 INR 1.3 (0.9-1.1) H 09/16/20 COVID-19 PCR NEGATIVE (Negative) 09/11/20 Influenza Virus Type A (PCR) Negative (Neg) 09/11/20 Influenza Virus Type B (PCR) Negative (Neg) 09/11/20 Chest X-Ray 09/11/20 Code Status & VTE Plan Code Status Full Code VTE Prophylaxis Plan VTE Prophylaxis will be ordered: No Supervising Physician Co-Signing Physician Notes Hyponatremia Acute kidney injury Loose stools Start patient IV fluids. Monitor daily BMP. Avoid any nephrotoxic agents. Work with PT/OT in the morning Patient reported bleeding per rectum. Monitor hemoglobin and continue Coumadin for now. I performed a history and physical examination of the patient on 09/11/20, including specifically H&P. I have discussed the patient's management with the advanced practitioner. Please refer to the Ngozi Rockwell note for the documented findings and plan of care.
[2020-09-11 16:44] LABS: Influenza A virus by PCR Negative (Neg); Influenza B virus by PCR Negative (Neg); RSV by PCR Negative (Neg); SARS CoV2 RNA(COVID-19) InHosp NEGATIVE (Negative)
[2020-09-11] MEDS ORDERED: GLUCAGON FOR INJ 1 MG VIAL SQ PRN (16:57)
[2020-09-11] MEDS ORDERED: DEXTROSE 50% 50 ML SYRINGE IV PRN (16:57)
[2020-09-11] MEDS ORDERED: CARBOHYDRATES FOR HYPOGLYCEMIA PO PRN (16:57)
[2020-09-11] MEDS ORDERED: GLUCOSE 10 TABS/TUBE PO PRN (16:57)
[2020-09-11] MEDS ORDERED: GLUCOSE 40% GEL 15 GM TUBE PO PRN (16:57)
[2020-09-11] MEDS ORDERED: SODIUM CHLORIDE 0.9% 1000ML 1,000 ML IV SCH (17:00)
[2020-09-11 17:06] LABS: INR 2.7 (0.9-1.1); Prothrombin Time 25.6 Seconds (9.0-12.0)
[2020-09-11] MEDS ORDERED: WARFARIN SOD 5 MG TAB PO SCH (17:15)
[2020-09-11] MEDS ORDERED: ALUMINUM/MAGNESIUM SUSP 30 ML UDC PO PRN (18:18)
[2020-09-11] MEDS ORDERED: POLYETHYLENE (MIRALAX) 17 GM PACK PO PRN (18:18)
[2020-09-11] MEDS ORDERED: ONDANSETRON INJ 2 MG/ML 2 ML VIAL IV PRN (18:18)
[2020-09-11] MEDS ORDERED: MAGNESIUM HYDROXIDE SUSP 30 ML UDC PO PRN (18:18)
[2020-09-11] MEDS ORDERED: WARFARIN SOD 7.5 MG TAB PO SCH (18:45)
[2020-09-11] MEDS: carvediloL 12.5 MG TAB PO SCH (19:57)
[2020-09-11] MEDS: ATORVASTATIN 40 MG TAB PO SCH (19:57)
[2020-09-11] MEDS: INSULIN GLARGINE SOLOSTAR 100 UNITS/ML 3 ML PEN SC SCH (20:25)
[2020-09-11] MEDS: INSULIN ASPART 100 UNITS/ML 3 ML PEN SC SCH (20:25)
[2020-09-11] MEDS: ACETAMINOPHEN 325 MG TAB PO PRN (21:41)
[2020-09-11 21:48] LABS: BUN Creatinine Ratio 24.2 (10-20); Calcium 8.3 mg/dl (8.5-10.1); Est GFR (African American) 89.8; Est GFR (Non-African American) 77.5; Potassium 3.9 mmol/L (3.5-5.1)
[2020-09-12 06:26] LABS: Hematocrit (blood only) 35.5 % (42-52); Mean Corpuscular Hemoglobin 25.8 pg (25-34); Mean Corpuscular Hgb Conc 33.8 g/dL (32-36); Mean Corpuscular Volume 76.2 fL (80-100); Mean Platelet Volume 10.5 fL (7.4-10.4); Platelet Count 156 K/uL (130-400); RDW Coefficient of Variation 14.6 % (11.5-14.5); RDW Standard Deviation 40.8 fL (36.4-46.3); Red Blood Count 4.66 M/uL (4.7-6.1); White Blood Count 5.77 K/uL (4.8-10.8)
[2020-09-12 06:43] LABS: INR 3.4 (0.9-1.1); Prothrombin Time 31.2 Seconds (9.0-12.0)
[2020-09-12 07:02] LABS: BUN Creatinine Ratio 28.2 (10-20); Calcium 8.4 mg/dl (8.5-10.1); Creatinine Clr Calc Pharmacy 99.4 ml/min; Est GFR (African American) 108.2; Est GFR (Non-African American) 93.4; Potassium 3.8 mmol/L (3.5-5.1)
[2020-09-12 07:07] LABS: Troponin I 0.034 ng/ml (0-0.045)
[2020-09-12] MEDS: carvediloL 12.5 MG TAB PO SCH ×2 (07:50→17:37)
[2020-09-12] MEDS: BACLOFEN 10 MG TAB PO SCH (07:50)
[2020-09-12] MEDS: ASPIRIN 81 MG ECTAB PO SCH (07:50)
[2020-09-12] MEDS: amLODIPine BESYLATE 5 MG TAB PO SCH (07:50)
[2020-09-12] MEDS: lisinopril 10 MG TAB PO SCH (07:51)
[2020-09-12] MEDS: CLOPIDOGREL BISULFATE 75 MG TAB PO SCH (07:51)
[2020-09-12 07:55] LABS: Estimated Average Glucose 163 mg/dl; Hemoglobin A1C 7.3 % (4.5-5.6)
[2020-09-12] MEDS: INSULIN GLARGINE SOLOSTAR 100 UNITS/ML 3 ML PEN SC SCH ×2 (08:08→21:51)
[2020-09-12] MEDS: INSULIN ASPART 100 UNITS/ML 3 ML PEN SC SCH ×4 (08:09→21:53)
--- NOTE | 2020-09-12 14:34 | Hospitalist Progress Note ---
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 concerned about pt cognition this morning and concern for stroke vs maybe low blood sugar; therefore EMS was summoned. Pt did not have new neurofocal deficit, continues with RHP, dysarthria and mild cog impairment. He received 1L of IVF in ED and feels he is at baseline currently. 09/12 seems to be back to baseline mental status, oriented x 3 CT head: no acute process afebrile, no clear focus of infection at this time acute weakness, confusion likely secondary to mild dehydration (in the setting of recent COVID vaccination), given Na 129 improving to 135 after IV fluids LOOSE STOOL/BRIGHT RED pt with episode of 2 loose stool in ED, 1 with bright red jelly substance no julio c bleeding noted on exam 09/12 Hg stable no melena/hematochezia as per patient continue to monitor hold coumadin for INR 3.4 (4) Hypomagnesemia: repleted magnesium 2.0 (5) Status post administration of all doses of COVID-19 vaccine series: per admitting [facility] notes: pt completed covid-19 vaccine series, TuesdaySeptember 08. Spiked fever on September 09 with generalized weakness, tmax 102.9 Likely mounted immune response and anticipated reaction of vaccine. afebrile so far (6) Status post cerebrovascular accident: hx of cva with residual RHP, dysphagia consult Pt/Ot continue Statin, plavix, asa, wafarin on coumadin, INR 3.4--> hold coumadin monitor INR daily usual coumadin regimen: home regimen of warfarin 5mg MoFr and 7.5mg all other days (7) Type 2 diabetes mellitus: BSG 199 in ED Last a1c 7.1, controlled lantus/novolog per protocol (8) CAD (coronary artery disease): pt with significant vascular disease including carotid artery stenosis, SMA stenosis, PAD HX of PAF on warfarin History of CABG x3 Continue ASA, statin, Plavix, Coreg and lisinopril EKG reviewed and unchanged from prior tracing on 03/2020 (9) Aortic valve stenosis: echo 10/2019, EF 65 to 69%: Left atrium mildly enlarged, small apical wall motion normality with akinesis of apical septal and anterior apical segments, aortic valve severely calcified, borderline severe aortic valve stenosis, grade 1 diastolic dysfxn monitor volume status closely (10) HTN (hypertension): Bp controlled, a bit high side in ED continue amlodipine, coreg, lisinopril wiht parameters (11) DVT prophylaxis: hold coumadin for INR 3.4 continue Dispo:med tele, case management consulted for discharge needs, PT/OT PCP: Junie FULL CODE attempted to call patient's over the phone for update no answer will try again tomorrow Admission and Anticipated Discharge Date Admission Date: September 11, 2020 Subjective ff up for weakness, altered mental status seen sitting up in bedside chair, comfortable alert, pleasant oriented x 3, answers all questions appropriately states he feels fine overall denies headache, dizziness, cough, chest pain, dyspnea, abdominal pain, nausea/vomiting no new focal neuro deficits states he had a good breakfast, asking when lunch is coming denies other symptoms Review of Systems Review of Systems: All systems reviewed & are unremarkable except as noted in Subjective Physical Exam Physical Exam: General- oriented x 3, not in distress, speaks in sentences with no effort or accessory muscle use Head- atraumatic Eyes- PERRL, EOMI, anicteric ENT- oropharynx clear Neck- supple, no JVD, no adenopathy, no thyromegaly; carotids +2/2, no bruits appreciated Lungs- clear to auscultation bilaterally, no rales/wheezes Heart- normal rate, regular rhythm;(+) grade 3 holosystolic murmur, no gallop, no rub appreciated Abdomen- normal bowel sounds, nondistended, soft, nontender, no masses or hepatosplenomegaly Extremities- no pretibial edema, no calf tenderness; peripheral pulses intact Neuro- alert, oriented x 3; CN 2-12 grossly intact; (+) right sided weakness- motor strength 3/5 no other gross focal neurologic deficits Skin- warm & dry Results & Data Results & Data ([facility]) Vital Signs (Past 12 Hours) Vital Signs Temp Pulse Pulse Resp BP Pulse Ox 09/12/20 11:37 36.9 C 90 19 104/67 98 09/12/20 08:20 36.3 C L 60 18 124/70 97 09/12/20 07:23 73 09/12/20 04:12 36.7 C 69 16 115/61 97 Laboratory Results Laboratory Results - last 24 hr 09/12/20 09/12/20 09/12/20 06:07 06:07 06:08 WBC 5.77 RBC 4.66 L Hgb 12.0 L Hct 35.5 L MCV 76.2 L MCH 25.8 MCHC 33.8 RDW Std Deviation 40.8 RDW Coeff of Caroline 14.6 H Plt Count 156 MPV 10.5 H PT 31.2 H INR 3.4 H Sodium 136 Potassium 3.8 Chloride 104 Carbon Dioxide 27 Anion Gap 5.0 BUN 24 H Creatinine 0.85 Est Cr Clr Drug Dosing 99.4 Est GFR ( Amer) 108.2 Est GFR (Non-Af Amer) 93.4 BUN/Creatinine Ratio 28.2 H Glucose 159 H POC Glucose Estimat Average Glucose Hemoglobin A1c Lactate Calcium 8.4 L Magnesium 2.0 Troponin I 0.034 09/12/20 09/12/20 09/12/20 06:08 06:08 06:13 WBC RBC Hgb Hct MCV MCH MCHC RDW Std Deviation RDW Coeff of Caroline Plt Count MPV PT INR Sodium Potassium Chloride Carbon Dioxide Anion Gap BUN Creatinine Est Cr Clr Drug Dosing Est GFR ( Amer) Est GFR (Non-Af Amer) BUN/Creatinine Ratio Glucose POC Glucose Estimat Average Glucose 163 Hemoglobin A1c 7.3 H Lactate 1.1 Calcium Magnesium Troponin I Cancelled 09/12/20 09/12/20 09/12/20 07:31 11:27 14:46 WBC RBC Hgb Hct MCV MCH MCHC RDW Std Deviation RDW Coeff of Caroline Plt Count MPV PT INR Sodium 135 L Potassium 4.3 Chloride 103 Carbon Dioxide 28 Anion Gap 5.0 BUN 27 H Creatinine 1.15 D Est Cr Clr Drug Dosing 73.5 Est GFR ( Amer) 78.6 Est GFR (Non-Af Amer) 67.8 BUN/Creatinine Ratio 23.4 H Glucose 193 H POC Glucose 202 H 276 H Estimat Average Glucose Hemoglobin A1c Lactate Calcium 8.4 L Magnesium Troponin I 09/12/20 09/12/20 16:45 20:15 WBC RBC Hgb Hct MCV MCH MCHC RDW Std Deviation RDW Coeff of Caroline Plt Count MPV PT INR Sodium Potassium Chloride Carbon Dioxide Anion Gap BUN Creatinine Est Cr Clr Drug Dosing Est GFR ( Amer) Est GFR (Non-Af Amer) BUN/Creatinine Ratio Glucose POC Glucose 157 H 140 H Estimat Average Glucose Hemoglobin A1c Lactate Calcium Magnesium Troponin I
[2020-09-12 15:25] LABS: BUN Creatinine Ratio 23.4 (10-20); Calcium 8.4 mg/dl (8.5-10.1); Creatinine Clr Calc Pharmacy 73.5 ml/min; Est GFR (African American) 78.6; Est GFR (Non-African American) 67.8; Potassium 4.3 mmol/L (3.5-5.1)
[2020-09-12] MEDS ORDERED: WARFARIN SOD 5 MG TAB PO SCH (16:00)
[2020-09-12] MEDS: ATORVASTATIN 40 MG TAB PO SCH (22:19)
[2020-09-13 06:32] LABS: Basophils # (auto) 0.02 K/uL (0-0.2); Basophils % (auto) 0.4 %; Eosinophils # (auto) 0.29 K/uL (0-0.5); Eosinophils % (auto) 5.3 %; Hematocrit (blood only) 36.2 % (42-52); Hemoglobin 12.4 g/dL (14.0-18.0); Immature Granulocytes # (auto) 0.01 K/uL (0.00-0.02); Immature Granulocytes % (auto) 0.2 %; Lymphocytes # (auto) 1.85 K/uL (1.2-3.4); Lymphocytes % (auto) 33.6 %; Mean Corpuscular Hemoglobin 25.8 pg (25-34); Mean Corpuscular Hgb Conc 34.3 g/dL (32-36); Mean Corpuscular Volume 75.4 fL (80-100); Mean Platelet Volume 10.3 fL (7.4-10.4); Monocytes # (auto) 0.57 K/uL (0.11-0.59); Monocytes % (auto) 10.4 %; Neutrophils # (auto) 2.76 K/uL (1.4-6.5); Neutrophils % (auto) 50.1 %; Platelet Count 208 K/uL (130-400); RDW Coefficient of Variation 14.5 % (11.5-14.5); RDW Standard Deviation 40.1 fL (36.4-46.3)
[2020-09-13 06:35] LABS: INR 2.2 (0.9-1.1); Prothrombin Time 21.4 Seconds (9.0-12.0)
[2020-09-13 07:06] LABS: BUN Creatinine Ratio 24.9 (10-20); Calcium 8.5 mg/dl (8.5-10.1); Creatinine Clr Calc Pharmacy 121.5 ml/min; Est GFR (African American) 117.9; Est GFR (Non-African American) 101.7
--- NOTE | 2020-09-13 07:18 | Electrocardiogram Report ---
Test Reason : Blood Pressure : / mmHG Vent. Rate : 072 BPM Atrial Rate : 072 BPM P-R Int : 158 ms QRS Dur : 088 ms QT Int : 404 ms P-R-T Axes : 058 -02 123 degrees QTc Int : 442 ms Normal sinus rhythm Possible Left atrial enlargement Inferior infarct (cited on or before 13-OCT-2006) Anterior infarct (cited on or before 13-OCT-2006) T wave abnormality, consider lateral ischemia Abnormal ECG When compared with ECG of 11-SEP-2020 10:43, No significant change was found Confirmed by Clemente Samayoa ([id number]) on 09/13/2020 7:18:16 AM Referred By: REFERRED SELF Confirmed By:Clemente Samayoa
[2020-09-13] MEDS: BACLOFEN 10 MG TAB PO SCH (08:35)
[2020-09-13] MEDS: lisinopril 10 MG TAB PO SCH (08:35)
[2020-09-13] MEDS: carvediloL 12.5 MG TAB PO SCH ×2 (08:36→17:17)
[2020-09-13] MEDS: amLODIPine BESYLATE 5 MG TAB PO SCH (08:36)
[2020-09-13] MEDS: ASPIRIN 81 MG ECTAB PO SCH (08:36)
[2020-09-13] MEDS: CLOPIDOGREL BISULFATE 75 MG TAB PO SCH (08:36)
[2020-09-13] MEDS: INSULIN ASPART 100 UNITS/ML 3 ML PEN SC SCH ×4 (08:37→21:00)
[2020-09-13] MEDS: INSULIN GLARGINE SOLOSTAR 100 UNITS/ML 3 ML PEN SC SCH ×2 (08:39→20:59)
--- NOTE | 2020-09-13 10:41 | Electrocardiogram Report ---
Test Reason : Blood Pressure : / mmHG Vent. Rate : 063 BPM Atrial Rate : 063 BPM P-R Int : 166 ms QRS Dur : 088 ms QT Int : 414 ms P-R-T Axes : 030 006 126 degrees QTc Int : 423 ms Normal sinus rhythm Inferior infarct (cited on or before 13-OCT-2006) Anterolateral infarct (cited on or before 13-OCT-2006) T wave inversion consider lateral ischemia Abnormal ECG When compared with ECG of 12-SEP-2020 05:29, (unconfirmed) No significant change was found Confirmed by Jann Kramer ([id number]) on 09/13/2020 10:41:00 AM Referred By: REFERRED SELF Confirmed By:Jann Kramer
--- NOTE | 2020-09-13 19:17 | Hospitalist Progress Note ---
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 concerned about pt cognition this morning and concern for stroke vs maybe low blood sugar; therefore EMS was summoned. Pt did not have new neurofocal deficit, continues with RHP, dysarthria and mild cog impairment. He received 1L of IVF in ED and feels he is at baseline currently. 09/[address] head: no acute process afebrile, no clear focus of infection at this time acute weakness, confusion likely secondary to mild dehydration (in the setting of recent COVID vaccination), given Na 129 improving to 135 after IV fluids LOOSE STOOL/BRIGHT RED pt with episode of 2 loose stool in ED, 1 with bright red jelly substance no julio c bleeding noted on exam 09/12 Hg stable no melena/hematochezia as per patient continue to monitor hold coumadin for INR 3.4 (4) Hypomagnesemia: repleted magnesium 2.0 (5) Status post administration of all doses of COVID-19 vaccine series: per admitting SVC notes: pt completed covid-19 vaccine series, TuesdaySeptember 08. Spiked fever on September 09 with generalized weakness, tmax 102.9 Likely mounted immune response and anticipated reaction of vaccine. afebrile so far (6) Status post cerebrovascular accident: hx of cva with residual RHP, dysphagia consult Pt/Ot continue Statin, plavix, asa, wafarin on coumadin, INR 3.4--> hold coumadin monitor INR daily usual coumadin regimen: home regimen of warfarin 5mg MoFr and 7.5mg all other days (7) Type 2 diabetes mellitus: BSG 199 in ED Last a1c 7.1, controlled lantus/novolog per protocol (8) CAD (coronary artery disease): pt with significant vascular disease including carotid artery stenosis, SMA stenosis, PAD HX of PAF on warfarin History of CABG x3 Continue ASA, statin, Plavix, Coreg and lisinopril EKG reviewed and unchanged from prior tracing on 03/2020 (9) Aortic valve stenosis: echo 10/2019, EF 65 to 69%: Left atrium mildly enlarged, small apical wall motion normality with akinesis of apical septal and anterior apical segments, aortic valve severely calcified, borderline severe aortic valve stenosis, grade 1 diastolic dysfxn monitor volume status closely (10) HTN (hypertension): Bp controlled, a bit high side in ED continue amlodipine, coreg, lisinopril wiht parameters (11) DVT prophylaxis: hold coumadin for INR 3.4 continue Dispo:med tele, case management consulted for discharge needs, PT/OT PCP: Junie FULL CODE attempted to call patient's over the phone for update no answer will try again tomorrow Admission and Anticipated Discharge Date Admission Date: September 11, 2020 Subjective Pt was seen and examined for follow up of weakness Sitting in chair with no distress Pt said not interested to go to rehab Nurse said that pt needs help because he is so weak Spoke to and would like him to go to rehab Denies any chest pain, palpitation, dizziness and SOB Review of Systems Review of Systems: All systems reviewed & are unremarkable except as noted in Subjective Physical Exam Physical Exam: General- oriented x 3, not in distress, speaks in sentences with no effort or accessory muscle use Head- atraumatic Eyes- PERRL, EOMI, anicteric ENT- oropharynx clear Neck- supple, no JVD, no adenopathy, no thyromegaly; carotids +2/2, no bruits appreciated Lungs- clear to auscultation bilaterally, no rales/wheezes Heart- normal rate, regular rhythm;(+) grade 3 holosystolic murmur, no gallop, no rub appreciated Abdomen- normal bowel sounds, nondistended, soft, nontender, no masses or hepatosplenomegaly Extremities- no pretibial edema, no calf tenderness; peripheral pulses intact Neuro- alert, oriented x 3; CN 2-12 grossly intact; (+) right sided weakness- motor strength 3/5 no other gross focal neurologic deficits Skin- warm & dry Results & Data Results & Data ([facility]) Vital Signs (Past 12 Hours) Vital Signs Temp Pulse Pulse Resp BP Pulse Ox 09/13/20 18:34 36.8 C 71 18 154/67 H 94 09/13/20 17:21 64 170/84 H 09/13/20 15:24 36.6 C 68 18 147/73 H 98 09/13/20 15:00 81 09/13/20 11:48 36.9 C 74 18 114/73 97 09/13/20 07:36 61
[2020-09-13] MEDS: ATORVASTATIN 40 MG TAB PO SCH (21:01)
[2020-09-14 06:17] LABS: Basophils # (auto) 0.01 K/uL (0-0.2); Basophils % (auto) 0.2 %; Eosinophils # (auto) 0.22 K/uL (0-0.5); Eosinophils % (auto) 4.4 %; Hematocrit (blood only) 34.7 % (42-52); Hemoglobin 11.8 g/dL (14.0-18.0); Immature Granulocytes # (auto) 0.01 K/uL (0.00-0.02); Immature Granulocytes % (auto) 0.2 %; Lymphocytes # (auto) 2.06 K/uL (1.2-3.4); Lymphocytes % (auto) 41.6 %; Mean Corpuscular Hemoglobin 25.9 pg (25-34); Mean Corpuscular Volume 76.3 fL (80-100); Mean Platelet Volume 10.1 fL (7.4-10.4); Monocytes # (auto) 0.44 K/uL (0.11-0.59); Monocytes % (auto) 8.9 %; Neutrophils # (auto) 2.21 K/uL (1.4-6.5); Neutrophils % (auto) 44.7 %; Platelet Count 214 K/uL (130-400); RDW Coefficient of Variation 14.4 % (11.5-14.5); RDW Standard Deviation 40.8 fL (36.4-46.3); Red Blood Count 4.55 M/uL (4.7-6.1); White Blood Count 4.95 K/uL (4.8-10.8)
[2020-09-14 06:21] LABS: INR 1.7 (0.9-1.1); Prothrombin Time 16.7 Seconds (9.0-12.0)
[2020-09-14 06:32] LABS: BUN Creatinine Ratio 22.7 (10-20); Calcium 8.3 mg/dl (8.5-10.1); Creatinine Clr Calc Pharmacy 120.7 ml/min; Est GFR (African American) 117.2; Est GFR (Non-African American) 101.1; Potassium 3.8 mmol/L (3.5-5.1)
[2020-09-14] MEDS: ASPIRIN 81 MG ECTAB PO SCH (07:56)
[2020-09-14] MEDS: lisinopril 10 MG TAB PO SCH (07:56)
[2020-09-14] MEDS: CLOPIDOGREL BISULFATE 75 MG TAB PO SCH (07:57)
[2020-09-14] MEDS: carvediloL 12.5 MG TAB PO SCH ×2 (07:57→17:03)
[2020-09-14] MEDS: amLODIPine BESYLATE 5 MG TAB PO SCH (07:57)
[2020-09-14] MEDS: BACLOFEN 10 MG TAB PO SCH (08:07)
[2020-09-14] MEDS: INSULIN GLARGINE SOLOSTAR 100 UNITS/ML 3 ML PEN SC SCH ×2 (08:08→20:46)
[2020-09-14] MEDS: INSULIN ASPART 100 UNITS/ML 3 ML PEN SC SCH ×4 (08:09→20:46)
[2020-09-14] MEDS: WARFARIN SOD 7.5 MG TAB PO SCH (16:01)
[2020-09-14] MEDS: ACETAMINOPHEN 325 MG TAB PO PRN (16:09)
--- NOTE | 2020-09-14 19:06 | Hospitalist Progress Note ---
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 concerned about pt cognition this morning and concern for stroke vs maybe low blood sugar; therefore EMS was summoned. Pt did not have new neurofocal deficit, continues with RHP, dysarthria and mild cog impairment. He received 1L of IVF in ED and feels he is at baseline currently. 09/[address] head: no acute process afebrile, no clear focus of infection at this time acute weakness, confusion likely secondary to mild dehydration (in the setting of recent COVID vaccination), given Na 129 improving to 135 after IV fluids Resolved LOOSE STOOL/BRIGHT RED pt with episode of 2 loose stool in ED, 1 with bright red jelly substance no julio c bleeding noted on exam 09/14 Hg stable no melena/hematochezia as per patient Coumadin resumed INR 1.7 today Continue monitor (4) Hypomagnesemia: repleted magnesium 2.0 (5) Status post administration of all doses of COVID-19 vaccine series: per admitting SVC notes: pt completed covid-19 vaccine series, TuesdaySeptember 08. Spiked fever on September 09 with generalized weakness, tmax 102.9 Likely mounted immune response and anticipated reaction of vaccine. afebrile so far (6) Status post cerebrovascular accident: hx of cva with residual RHP, dysphagia consult Pt/Ot continue Statin, plavix, asa, wafarin Continue Coumadin regimen: home regimen of warfarin 5mg MoFr and 7.5mg all other days (7) Type 2 diabetes mellitus: BSG 199 in ED Last a1c 7.1, controlled lantus/novolog per protocol (8) CAD (coronary artery disease): pt with significant vascular disease including carotid artery stenosis, SMA stenosis, PAD HX of PAF on warfarin History of CABG x3 Continue ASA, statin, Plavix, Coreg and lisinopril EKG reviewed and unchanged from prior tracing on 03/2020 (9) Aortic valve stenosis: echo 10/2019, EF 65 to 69%: Left atrium mildly enlarged, small apical wall motion normality with akinesis of apical septal and anterior apical segments, aortic valve severely calcified, borderline severe aortic valve stenosis, grade 1 diastolic dysfxn monitor volume status closely (10) HTN (hypertension): Bp controlled, a bit high side in ED continue amlodipine, coreg, lisinopril wiht parameters (11) DVT prophylaxis: Coumadin resume Dispo: waiting for placement to rehab FULL CODE Admission and Anticipated Discharge Date Admission Date: September 13, 2020 Subjective Pt was seen and examined for follow up of weakness Sitting in chair with no distress Spoke to yesterday and would like him to go to rehab Denies any chest pain, palpitation, dizziness and SOB Review of Systems Review of Systems: All systems reviewed & are unremarkable except as noted in Subjective Physical Exam Physical Exam: General- oriented x 3, not in distress, speaks in sentences with no effort or accessory muscle use Head- atraumatic Eyes- PERRL, EOMI, anicteric ENT- oropharynx clear Neck- supple, no JVD, no adenopathy, no thyromegaly; carotids +2/2, no bruits appreciated Lungs- clear to auscultation bilaterally, no rales/wheezes Heart- normal rate, regular rhythm;(+) grade 3 holosystolic murmur, no gallop, no rub appreciated Abdomen- normal bowel sounds, nondistended, soft, nontender, no masses or hepatosplenomegaly Extremities- no pretibial edema, no calf tenderness; peripheral pulses intact Neuro- alert, oriented x 3; CN 2-12 grossly intact; (+) right sided weakness- motor strength 3/5 no other gross focal neurologic deficits Skin- warm & dry Results & Data Results & Data ([facility]) Vital Signs (Past 12 Hours) Vital Signs Temp Pulse Pulse Resp BP Pulse Ox 09/14/20 18:59 36.9 C 60 18 116/60 98 09/14/20 15:39 36.6 C 70 18 163/82 H 96 09/14/20 15:00 76 09/14/20 11:30 36.8 C 82 18 104/63 97 09/14/20 07:41 59 L 09/14/20 07:30 36.8 C 59 L 18 156/74 H 95
[2020-09-14] MEDS: ATORVASTATIN 40 MG TAB PO SCH (20:46)
[2020-09-15 06:39] LABS: Basophils # (auto) 0.03 K/uL (0-0.2); Basophils % (auto) 0.7 %; Eosinophils # (auto) 0.18 K/uL (0-0.5); Eosinophils % (auto) 3.9 %; Hematocrit (blood only) 35.5 % (42-52); Immature Granulocytes # (auto) 0.01 K/uL (0.00-0.02); Immature Granulocytes % (auto) 0.2 %; Lymphocytes # (auto) 1.74 K/uL (1.2-3.4); Lymphocytes % (auto) 38.1 %; Mean Corpuscular Hgb Conc 33.8 g/dL (32-36); Mean Corpuscular Volume 76.8 fL (80-100); Mean Platelet Volume 9.9 fL (7.4-10.4); Monocytes # (auto) 0.37 K/uL (0.11-0.59); Monocytes % (auto) 8.1 %; Neutrophils # (auto) 2.24 K/uL (1.4-6.5); Platelet Count 225 K/uL (130-400); RDW Coefficient of Variation 14.5 % (11.5-14.5); RDW Standard Deviation 41.3 fL (36.4-46.3); Red Blood Count 4.62 M/uL (4.7-6.1); White Blood Count 4.57 K/uL (4.8-10.8)
[2020-09-15 06:48] LABS: INR 1.4 (0.9-1.1); Prothrombin Time 13.8 Seconds (9.0-12.0)
[2020-09-15 07:04] LABS: BUN Creatinine Ratio 22.9 (10-20); Calcium 8.5 mg/dl (8.5-10.1); Creatinine Clr Calc Pharmacy 104.1 ml/min; Est GFR (African American) 110.4; Est GFR (Non-African American) 95.3; Potassium 4.2 mmol/L (3.5-5.1)
[2020-09-15] MEDS: INSULIN ASPART 100 UNITS/ML 3 ML PEN SC SCH ×4 (07:57→20:16)
[2020-09-15] MEDS: ASPIRIN 81 MG ECTAB PO SCH (08:00)
[2020-09-15] MEDS: carvediloL 12.5 MG TAB PO SCH ×2 (08:00→16:02)
[2020-09-15] MEDS: amLODIPine BESYLATE 5 MG TAB PO SCH (08:00)
[2020-09-15] MEDS: CLOPIDOGREL BISULFATE 75 MG TAB PO SCH (08:00)
[2020-09-15] MEDS: BACLOFEN 10 MG TAB PO SCH (08:00)
[2020-09-15] MEDS: lisinopril 10 MG TAB PO SCH (08:02)
[2020-09-15] MEDS: INSULIN GLARGINE SOLOSTAR 100 UNITS/ML 3 ML PEN SC SCH ×2 (08:02→20:14)
[2020-09-15] MEDS: WARFARIN SOD 5 MG TAB PO SCH (16:02)
--- NOTE | 2020-09-15 19:09 | Hospitalist Progress Note ---
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 concerned about pt cognition this morning and concern for stroke vs maybe low blood sugar; therefore EMS was summoned. Pt did not have new neurofocal deficit, continues with RHP, dysarthria and mild cog impairment. He received 1L of IVF in ED and feels he is at baseline currently. 09/[address] head: no acute process afebrile, no clear focus of infection at this time acute weakness, confusion likely secondary to mild dehydration (in the setting of recent COVID vaccination), given Na 129 improving to 135 after IV fluids Resolved LOOSE STOOL/BRIGHT RED pt with episode of 2 loose stool in ED, 1 with bright red jelly substance no julio c bleeding noted on exam 09/15 Hg stable no melena/hematochezia as per patient Coumadin resumed INR 1.4 today Continue monitor (4) Hypomagnesemia: repleted magnesium 2.0 (5) Status post administration of all doses of COVID-19 vaccine series: per admitting SVC notes: pt completed covid-19 vaccine series, TuesdaySeptember 08. Spiked fever on September 09 with generalized weakness, tmax 102.9 Likely mounted immune response and anticipated reaction of vaccine. afebrile so far (6) Status post cerebrovascular accident: hx of cva with residual RHP, dysphagia consult Pt/Ot continue Statin, plavix, asa, wafarin Continue Coumadin regimen: home regimen of warfarin 5mg MoFr and 7.5mg all other days (7) Type 2 diabetes mellitus: BSG 199 in ED Last a1c 7.1, controlled lantus/novolog per protocol (8) CAD (coronary artery disease): pt with significant vascular disease including carotid artery stenosis, SMA stenosis, PAD HX of PAF on warfarin History of CABG x3 Continue ASA, statin, Plavix, Coreg and lisinopril EKG reviewed and unchanged from prior tracing on 03/2020 (9) Aortic valve stenosis: echo 10/2019, EF 65 to 69%: Left atrium mildly enlarged, small apical wall motion normality with akinesis of apical septal and anterior apical segments, aortic valve severely calcified, borderline severe aortic valve stenosis, grade 1 diastolic dysfxn monitor volume status closely (10) HTN (hypertension): Bp controlled, a bit high side in ED continue amlodipine, coreg, lisinopril wiht parameters (11) DVT prophylaxis: Coumadin resume Will add heparin subq until INR therapeutic Dispo: waiting for placement to rehab FULL CODE Admission and Anticipated Discharge Date Admission Date: September 13, 2020 Subjective Pt was seen and examined for follow up of weakness Lying in bed with no distress Denies any chest pain, palpitation, dizziness and SOB Review of Systems Review of Systems: All systems reviewed & are unremarkable except as noted in Subjective Physical Exam Physical Exam: General- oriented x 3, not in distress, speaks in sentences with no effort or accessory muscle use Head- atraumatic Eyes- PERRL, EOMI, anicteric ENT- oropharynx clear Neck- supple, no JVD, no adenopathy, no thyromegaly; carotids +2/2, no bruits appreciated Lungs- clear to auscultation bilaterally, no rales/wheezes Heart- normal rate, regular rhythm;(+) grade 3 holosystolic murmur, no gallop, no rub appreciated Abdomen- normal bowel sounds, nondistended, soft, nontender, no masses or hepatosplenomegaly Extremities- no pretibial edema, no calf tenderness; peripheral pulses intact Neuro- alert, oriented x 3; CN 2-12 grossly intact; (+) right sided weakness- motor strength 3/5 no other gross focal neurologic deficits Skin- warm & dry Results & Data Results & Data ([facility]) Vital Signs (Past 12 Hours) Vital Signs Temp Pulse Pulse Resp BP Pulse Ox 09/15/20 17:01 182/77 H 09/15/20 15:47 74 09/15/20 15:05 36.8 C 64 18 191/74 H 97 09/15/20 11:10 36.6 C 109 H 18 136/88 97 09/15/20 07:29 58 L
[2020-09-15] MEDS: ATORVASTATIN 40 MG TAB PO SCH (20:16)
[2020-09-15] MEDS: HEPARIN SOD 5,000 UNIT/0.5 ML VIAL SQ SCH (21:35)
[2020-09-16] MEDS: HEPARIN SOD 5,000 UNIT/0.5 ML VIAL SQ SCH ×3 (05:30→20:48)
[2020-09-16 06:45] LABS: Basophils # (auto) 0.02 K/uL (0-0.2); Basophils % (auto) 0.4 %; Eosinophils # (auto) 0.19 K/uL (0-0.5); Eosinophils % (auto) 3.5 %; Hematocrit (blood only) 34.7 % (42-52); Hemoglobin 11.7 g/dL (14.0-18.0); Immature Granulocytes # (auto) 0.01 K/uL (0.00-0.02); Immature Granulocytes % (auto) 0.2 %; Lymphocytes # (auto) 2.19 K/uL (1.2-3.4); Lymphocytes % (auto) 40.7 %; Mean Corpuscular Hemoglobin 25.5 pg (25-34); Mean Corpuscular Hgb Conc 33.7 g/dL (32-36); Mean Corpuscular Volume 75.6 fL (80-100); Mean Platelet Volume 10.1 fL (7.4-10.4); Monocytes # (auto) 0.36 K/uL (0.11-0.59); Monocytes % (auto) 6.7 %; Neutrophils # (auto) 2.61 K/uL (1.4-6.5); Neutrophils % (auto) 48.5 %; Platelet Count 253 K/uL (130-400); RDW Coefficient of Variation 14.3 % (11.5-14.5); RDW Standard Deviation 39.6 fL (36.4-46.3); Red Blood Count 4.59 M/uL (4.7-6.1); White Blood Count 5.38 K/uL (4.8-10.8)
[2020-09-16 06:59] LABS: INR 1.3 (0.9-1.1); Prothrombin Time 13.2 Seconds (9.0-12.0)
[2020-09-16 07:22] LABS: BUN Creatinine Ratio 20.1 (10-20); Calcium 8.3 mg/dl (8.5-10.1); Creatinine Clr Calc Pharmacy 116.7 ml/min; Est GFR (African American) 115.9
[2020-09-16] MEDS: amLODIPine BESYLATE 5 MG TAB PO SCH (08:26)
[2020-09-16] MEDS: carvediloL 12.5 MG TAB PO SCH ×2 (08:26→16:33)
[2020-09-16] MEDS: ASPIRIN 81 MG ECTAB PO SCH (08:26)
[2020-09-16] MEDS: BACLOFEN 10 MG TAB PO SCH (08:26)
[2020-09-16] MEDS: lisinopril 10 MG TAB PO SCH (08:27)
[2020-09-16] MEDS: CLOPIDOGREL BISULFATE 75 MG TAB PO SCH (08:27)
[2020-09-16] MEDS: INSULIN ASPART 100 UNITS/ML 3 ML PEN SC SCH ×4 (08:28→20:49)
[2020-09-16] MEDS: INSULIN GLARGINE SOLOSTAR 100 UNITS/ML 3 ML PEN SC SCH ×2 (08:29→20:50)
[2020-09-16] MEDS: WARFARIN SOD 7.5 MG TAB PO SCH (15:54)
--- NOTE | 2020-09-16 18:42 | Hospitalist Progress Note ---
Date of Service September 16, 2020 Assessment & Plan (1) Generalized weakness: Confusion Present on admission with worsening weakness and confusion CT head showed no acute intracranial abnormality No focal neuro deficit continue PT/OT fall precaution Waiting for placement to [facility] (2) Hyponatremia: (3) Acute renal insufficiency: possible related to dehydration due to acute illness from the recent COVID vaccine with Na 129 on admission He received 1L of IVF in ED and feels he is at baseline currently. afebrile, no clear focus of infection at this time Resolved LOOSE STOOL/BRIGHT RED pt with episode of 2 loose stool in ED, 1 with bright red jelly substance no julio c bleeding noted on exam 09/16 Hg stable no melena/hematochezia as per patient Coumadin resumed INR 1.3 today Continue monitor (4) Hypomagnesemia: repleted magnesium 2.0 (5) Status post administration of all doses of COVID-19 vaccine series: per admitting SVC notes: pt completed covid-19 vaccine series, TuesdaySeptember 08. Spiked fever on September 09 with generalized weakness, tmax 102.9 Likely mounted immune response and anticipated reaction of vaccine. afebrile so far (6) Status post cerebrovascular accident: hx of cva with residual RHP, dysphagia consult Pt/Ot continue Statin, plavix, asa, wafarin Continue Coumadin regimen: home regimen of warfarin 5mg MoFr and 7.5mg all other days (7) Type 2 diabetes mellitus: BSG 199 in ED Last a1c 7.1, controlled lantus/novolog per protocol (8) CAD (coronary artery disease): pt with significant vascular disease including carotid artery stenosis, SMA stenosis, PAD HX of PAF on warfarin History of CABG x3 Continue ASA, statin, Plavix, Coreg and lisinopril EKG reviewed and unchanged from prior tracing on 03/2020 (9) Aortic valve stenosis: echo 10/2019, EF 65 to 69%: Left atrium mildly enlarged, small apical wall motion normality with akinesis of apical septal and anterior apical segments, aortic valve severely calcified, borderline severe aortic valve stenosis, grade 1 diastolic dysfxn monitor volume status closely (10) HTN (hypertension): Bp controlled, a bit high side in ED continue amlodipine, coreg, lisinopril wiht parameters (11) DVT prophylaxis: Continue coumadin On heparin subq until INR therapeutic Dispo: waiting for placement to rehab FULL CODE Admission and Anticipated Discharge Date Admission Date: September 13, 2020 Subjective Pt was seen and examined for follow up of weakness Lying in bed with no distress Denies any chest pain, palpitation, dizziness and SOB Review of Systems Review of Systems: All systems reviewed & are unremarkable except as noted in Subjective Physical Exam Physical Exam: General- oriented x 3, not in distress, speaks in sentences with no effort or accessory muscle use Head- atraumatic Eyes- PERRL, EOMI, anicteric ENT- oropharynx clear Neck- supple, no JVD, no adenopathy, no thyromegaly; carotids +2/2, no bruits appreciated Lungs- clear to auscultation bilaterally, no rales/wheezes Heart- normal rate, regular rhythm;(+) grade 3 holosystolic murmur, no gallop, no rub appreciated Abdomen- normal bowel sounds, nondistended, soft, nontender, no masses or hepatosplenomegaly Extremities- no pretibial edema, no calf tenderness; peripheral pulses intact Neuro- alert, oriented x 3; CN 2-12 grossly intact; (+) right sided weakness- motor strength 3/5 no other gross focal neurologic deficits Skin- warm & dry Results & Data Results & Data ([facility]) Vital Signs (Past 12 Hours) Vital Signs Temp Pulse Pulse Resp BP Pulse Ox 09/16/20 15:46 36.7 C 63 18 145/78 H 96 09/16/20 14:52 57 L 09/16/20 11:14 36.7 C 69 18 97/65 L 96 09/16/20 07:44 36.7 C 63 18 167/74 H 95 09/16/20 07:10 60
[2020-09-16] MEDS: ATORVASTATIN 40 MG TAB PO SCH (20:47)
[2020-09-17 06:03] LABS: Basophils # (auto) 0.02 K/uL (0-0.2); Basophils % (auto) 0.4 %; Eosinophils # (auto) 0.22 K/uL (0-0.5); Hematocrit (blood only) 34.8 % (42-52); Hemoglobin 11.6 g/dL (14.0-18.0); Immature Granulocytes # (auto) 0.01 K/uL (0.00-0.02); Immature Granulocytes % (auto) 0.2 %; Lymphocytes # (auto) 2.35 K/uL (1.2-3.4); Lymphocytes % (auto) 42.7 %; Mean Corpuscular Hemoglobin 25.4 pg (25-34); Mean Corpuscular Hgb Conc 33.3 g/dL (32-36); Mean Corpuscular Volume 76.1 fL (80-100); Mean Platelet Volume 9.7 fL (7.4-10.4); Monocytes # (auto) 0.38 K/uL (0.11-0.59); Monocytes % (auto) 6.9 %; Neutrophils # (auto) 2.52 K/uL (1.4-6.5); Neutrophils % (auto) 45.8 %; Platelet Count 245 K/uL (130-400); RDW Coefficient of Variation 14.3 % (11.5-14.5); RDW Standard Deviation 40.5 fL (36.4-46.3); Red Blood Count 4.57 M/uL (4.7-6.1)
[2020-09-17 06:18] LABS: INR 1.4 (0.9-1.1); Prothrombin Time 13.4 Seconds (9.0-12.0)
[2020-09-17 06:38] LABS: BUN Creatinine Ratio 24.7 (10-20); Calcium 8.6 mg/dl (8.5-10.1); Creatinine Clr Calc Pharmacy 139.6 ml/min; Est GFR (African American) 124.9; Est GFR (Non-African American) 107.8; Potassium 4.2 mmol/L (3.5-5.1)
[2020-09-17] MEDS: HEPARIN SOD 5,000 UNIT/0.5 ML VIAL SQ SCH ×3 (07:06→20:41)
[2020-09-17] MEDS: INSULIN ASPART 100 UNITS/ML 3 ML PEN SC SCH ×4 (08:05→20:40)
[2020-09-17] MEDS: lisinopril 10 MG TAB PO SCH (08:07)
[2020-09-17] MEDS: amLODIPine BESYLATE 5 MG TAB PO SCH (08:07)
[2020-09-17] MEDS: carvediloL 12.5 MG TAB PO SCH ×2 (08:07→17:09)
[2020-09-17] MEDS: ASPIRIN 81 MG ECTAB PO SCH (08:07)
[2020-09-17] MEDS: CLOPIDOGREL BISULFATE 75 MG TAB PO SCH (08:07)
[2020-09-17] MEDS: BACLOFEN 10 MG TAB PO SCH (08:08)
[2020-09-17] MEDS: INSULIN GLARGINE SOLOSTAR 100 UNITS/ML 3 ML PEN SC SCH ×2 (08:08→20:38)
--- NOTE | 2020-09-17 11:01 | Hospitalist Progress Note ---
Date of Service September 17, 2020 Assessment & Plan (1) Generalized weakness: Confusion Present on admission with worsening weakness and confusion CT head showed no acute intracranial abnormality No focal neuro deficit Patient currently alert and oriented.Does not appear confused during my evaluation Continue PT/OT while inpatient Fall precaution Waiting for placement to SNF (2) Hyponatremia: (3) Acute renal insufficiency: Possible related to dehydration due to acute illness from the recent COVID vaccine with Na 129 on admission He received 1L of IVF in ED and feels he is at baseline currently. Afebrile, no clear focus of infection at this time Hyponatremia is resovled LOOSE STOOL/BRIGHT RED Pt reported to have had episode of 2 loose stool in ED, 1 with bright red jelly substance No julio c bleeding noted on exam Hg stable No melena/hematochezia as per patient and RN Continue home warfarin INR 1.4 today Continue to monitor (4) Hypomagnesemia: Repleted (5) Status post administration of all doses of COVID-19 vaccine series: Per admitting SVC notes: Pt completed covid-19 vaccine series, TuesdaySeptember 08. Spiked fever on September 09 with generalized weakness, tmax 102.9 Likely mounted immune response and anticipated reaction of vaccine. Has been afebrile since admission (6) Status post cerebrovascular accident: Hx of cva with residual Right sided weakness, Continue Statin, plavix, asa, wafarin Continue Coumadin regimen: home regimen of warfarin 5mg MoFr and 7.5mg all other days (7) Type 2 diabetes mellitus: BSG 199 in ED Last a1c 7.1, controlled lantus/novolog per protocol (8) CAD (coronary artery disease): Significant vascular disease including carotid artery stenosis, SMA stenosis, PAD HX of PAF on warfarin History of CABG x3 Continue ASA, statin, Plavix, Coreg and lisinopril (9) Aortic valve stenosis: Echo 10/2019, EF 65 to 69%: Left atrium mildly enlarged, small apical wall motion normality with akinesis of apical septal and anterior apical segments, aortic valve severely calcified, borderline severe aortic valve stenosis, grade 1 diastolic dysfxn monitor volume status closely (10) HTN (hypertension): Controlled Continue amlodipine, coreg, lisinopril (11) DVT prophylaxis: Continue coumadin Can continue hep sq inpatient while INR is still subtherapeutic Dispo: Placement pending FULL CODE Admission and Anticipated Discharge Date Admission Date: September 13, 2020 Subjective Patient seen and examined. Denies any chest pain, shortness of breath, palpitations Denies any cough Denies fevers, chills Denies any nausea, vomiting, abdominal pain, constipation or diarrhea Denies dysuria, frequency, urgency Denies headache or dizziness Physical Exam Constitutional: + well hydrated; no acute distress Eyes: PERRL, conjunctivae normal, anicteric sclerae ENMT: external ear and nose normal, oropharynx normal Respiratory: normal respiratory effort, lungs clear to auscultation Cardiovascular: Rate/Rhythm: regular rate and regular rhythm Systolic ejection murmur No pedal edema Gastrointestinal (Abdomen): normal bowel sounds, soft, nontender, no hepatosplenomegaly Musculoskeletal: no cyanosis or clubbing, extremities motor strength 5/5 Neurologic: PERRL, EOMI, accommodation nl, no face palsy, no dysarthria +Right sided weakness (power 4/5 in UE) compared to left Psychiatric: Orientation: alert, oriented to person and oriented to place Genitourinary: no CVA tenderness Results & Data Results & Data ([facility]) Vital Signs (Past 12 Hours) Vital Signs Temp Pulse Pulse Resp BP Pulse Ox 09/17/20 07:29 36.6 C 63 18 178/76 H 94 09/17/20 07:20 71 09/17/20 00:07 67 09/16/20 23:18 37.2 C 60 18 146/70 H 96 Laboratory Results Laboratory Results - last 24 hr 09/16/20 09/16/20 09/17/20 16:54 20:09 05:45 WBC RBC Hgb Hct MCV MCH MCHC RDW Std Deviation RDW Coeff of Caroline Plt Count MPV Immature Gran % (Auto) Neut % (Auto) Lymph % (Auto) Jefferson % (Auto) Eos % (Auto) Baso % (Auto) Neut # (Auto) Lymph # (Auto) Jefferson # (Auto) Eos # (Auto) Baso # (Auto) Immature Gran # (Auto) PT 13.4 H INR 1.4 H Sodium Potassium Chloride Carbon Dioxide Anion Gap BUN Creatinine Est Cr Clr Drug Dosing Est GFR ( Amer) Est GFR (Non-Af Amer) BUN/Creatinine Ratio Glucose POC Glucose 156 H 172 H Calcium 09/17/20 09/17/20 09/17/20 05:45 05:45 07:47 WBC 5.50 RBC 4.57 L Hgb 11.6 L Hct 34.8 L MCV 76.1 L MCH 25.4 MCHC 33.3 RDW Std Deviation 40.5 RDW Coeff of Caroline 14.3 Plt Count 245 MPV 9.7 Immature Gran % (Auto) 0.2 Neut % (Auto) 45.8 Lymph % (Auto) 42.7 Jefferson % (Auto) 6.9 Eos % (Auto) 4.0 Baso % (Auto) 0.4 Neut # (Auto) 2.52 Lymph # (Auto) 2.35 Jefferson # (Auto) 0.38 Eos # (Auto) 0.22 Baso # (Auto) 0.02 Immature Gran # (Auto) 0.01 PT INR Sodium 138 Potassium 4.2 Chloride 106 Carbon Dioxide 28 Anion Gap 4.0 BUN 15 Creatinine 0.60 Est Cr Clr Drug Dosing 139.6 Est GFR ( Amer) 124.9 Est GFR (Non-Af Amer) 107.8 BUN/Creatinine Ratio 24.7 H Glucose 164 H POC Glucose 177 H Calcium 8.6 09/17/20 11:46 WBC RBC Hgb Hct MCV MCH MCHC RDW Std Deviation RDW Coeff of Caroline Plt Count MPV Immature Gran % (Auto) Neut % (Auto) Lymph % (Auto) Jefferson % (Auto) Eos % (Auto) Baso % (Auto) Neut # (Auto) Lymph # (Auto) Jefferson # (Auto) Eos # (Auto) Baso # (Auto) Immature Gran # (Auto) PT INR Sodium Potassium Chloride Carbon Dioxide Anion Gap BUN Creatinine Est Cr Clr Drug Dosing Est GFR ( Amer) Est GFR (Non-Af Amer) BUN/Creatinine Ratio Glucose POC Glucose 287 H Calcium
[2020-09-17] MEDS: WARFARIN SOD 7.5 MG TAB PO SCH (15:27)
[2020-09-17] MEDS: ATORVASTATIN 40 MG TAB PO SCH (20:39)
[2020-09-18] MEDS: HEPARIN SOD 5,000 UNIT/0.5 ML VIAL SQ SCH ×3 (05:58→22:40)
[2020-09-18 08:00] LABS: INR 1.4 (0.9-1.1)
[2020-09-18] MEDS: carvediloL 12.5 MG TAB PO SCH ×2 (08:13→16:41)
[2020-09-18] MEDS: CLOPIDOGREL BISULFATE 75 MG TAB PO SCH (08:13)
[2020-09-18] MEDS: amLODIPine BESYLATE 5 MG TAB PO SCH (08:14)
[2020-09-18] MEDS: BACLOFEN 10 MG TAB PO SCH (08:14)
[2020-09-18] MEDS: lisinopril 10 MG TAB PO SCH (08:14)
[2020-09-18] MEDS: ASPIRIN 81 MG ECTAB PO SCH (08:14)
[2020-09-18] MEDS: INSULIN GLARGINE SOLOSTAR 100 UNITS/ML 3 ML PEN SC SCH ×2 (08:17→20:58)
[2020-09-18] MEDS: INSULIN ASPART 100 UNITS/ML 3 ML PEN SC SCH ×4 (08:21→20:58)
[2020-09-18 08:31] LABS: BUN Creatinine Ratio 17.5 (10-20); Calcium 8.6 mg/dl (8.5-10.1); Creatinine Clr Calc Pharmacy 112.3 ml/min; Est GFR (African American) 113.9; Est GFR (Non-African American) 98.3
--- NOTE | 2020-09-18 12:55 | Hospitalist Progress Note ---
Date of Service September 18, 2020 Assessment & Plan (1) Generalized weakness: Confusion Present on admission with worsening weakness and confusion CT head showed no acute intracranial abnormality No focal neuro deficit Currently alert and oriented to person and place, not to date. Able to tell me why he came to the hospital No longer confused Continue PT/OT while inpatient Fall precaution Waiting for placement to SNF (2) Hyponatremia: (3) Acute renal insufficiency: Possible related to dehydration due to acute illness from the recent COVID vaccine with Na 129 on admission He received 1L of IVF in ED and feels he is at baseline currently. Afebrile, no clear focus of infection at this time Hyponatremia is resovled LOOSE STOOL/BRIGHT RED Pt reported to have had episode of 2 loose stool in ED, 1 with bright red jelly substance No julio c bleeding noted on exam Hg has been stable No melena/hematochezia as per patient and RN Continue home warfarin INR still at 1.4 Continue to monitor (4) Hypomagnesemia: Repleted (5) Status post administration of all doses of COVID-19 vaccine series: Per admitting [facility] notes: Pt completed covid-19 vaccine series, TuesdaySeptember 08. Spiked fever on September 09 with generalized weakness, tmax 102.9 Likely mounted immune response and anticipated reaction of vaccine. Has been afebrile since admission (6) Status post cerebrovascular accident: Hx of cva with residual Right sided weakness, Continue Statin, plavix, asa, wafarin Continue Coumadin regimen: home regimen of warfarin 5mg MoFr and 7.5mg all other days (7) Type 2 diabetes mellitus: BSG 199 in ED A1c on 09/12/20 was 7.3 Blood glucose poorly controlled Increase insulin and lantus while inpatient for better glycemic control Will resume home regimen on discharge (8) CAD (coronary artery disease): Significant vascular disease including carotid artery stenosis, SMA stenosis, PAD HX of PAF on warfarin History of CABG x3 Continue ASA, statin, Plavix, Coreg and lisinopril (9) Aortic valve stenosis: Echo 10/2019, EF 65 to 69%: Left atrium mildly enlarged, small apical wall motion normality with akinesis of apical septal and anterior apical segments, aortic valve severely calcified, borderline severe aortic valve stenosis, grade 1 diastolic dysfxn monitor volume status closely (10) HTN (hypertension): Controlled Continue amlodipine, coreg, lisinopril (11) DVT prophylaxis: Continue coumadin Can continue hep sq inpatient while INR is still subtherapeutic Dispo: Discussed with CM Placement still in process Spoke with patient's yesterday night and updated her FULL CODE Admission and Anticipated Discharge Date Admission Date: September 13, 2020 Subjective Patient seen and examined Patient denies any complaints today. Denies any cough, chest pain Denies any shortness of breath Denies fevers or chills Denies nausea, vomiting, diarrhea, constipation, abdominal pain Denies dysuria, frequency Physical Exam Constitutional: + well hydrated; no acute distress Eyes: PERRL, conjunctivae normal, anicteric sclerae ENMT: external ear and nose normal, oropharynx normal Respiratory: normal respiratory effort, lungs clear to auscultation Cardiovascular: Rate/Rhythm: regular rate and regular rhythm Gastrointestinal (Abdomen): normal bowel sounds, soft, nontender, no hepatosplenomegaly Musculoskeletal: no cyanosis or clubbing, extremities motor strength 5/5 Neurologic: PERRL, EOMI, accommodation nl, no face palsy, no dysarthria Power is 4/5 on right upper extremities and 3/5 in right lower extremities Psychiatric: Orientation: alert, oriented to person and oriented to place Genitourinary: no CVA tenderness Results & Data Results & Data ([facility]) Vital Signs (Past 12 Hours) Vital Signs Temp Pulse Pulse Resp BP Pulse Ox 09/18/20 11:26 37.2 C 60 18 108/65 96 09/18/20 08:02 36.5 C 59 L 18 144/76 H 97 09/18/20 07:06 55 L 09/18/20 03:41 36.7 C 59 L 18 116/70 95 Laboratory Results Laboratory Results - last 24 hr 09/17/20 09/17/20 09/18/20 16:38 20:11 07:19 PT INR Sodium 138 Potassium 4.0 Chloride 106 Carbon Dioxide 28 Anion Gap 5.0 BUN 13 Creatinine 0.75 Est Cr Clr Drug Dosing 112.3 Est GFR ( Amer) 113.9 Est GFR (Non-Af Amer) 98.3 BUN/Creatinine Ratio 17.5 Glucose 172 H POC Glucose 86 248 H Calcium 8.6 09/18/20 09/18/20 09/18/20 07:19 07:44 11:32 PT 14.0 H INR 1.4 H Sodium Potassium Chloride Carbon Dioxide Anion Gap BUN Creatinine Est Cr Clr Drug Dosing Est GFR ( Amer) Est GFR (Non-Af Amer) BUN/Creatinine Ratio Glucose POC Glucose 181 H 306 H* Calcium 09/18/20 11:34 PT INR Sodium Potassium Chloride Carbon Dioxide Anion Gap BUN Creatinine Est Cr Clr Drug Dosing Est GFR ( Amer) Est GFR (Non-Af Amer) BUN/Creatinine Ratio Glucose POC Glucose 309 H* Calcium
[2020-09-18] MEDS ORDERED: INSULIN GLARGINE SOLOSTAR 100 UNITS/ML 3 ML PEN SC ONE (13:00)
[2020-09-18] MEDS: WARFARIN SOD 7.5 MG TAB PO SCH (16:41)
[2020-09-18] MEDS: ATORVASTATIN 40 MG TAB PO SCH (20:57)
[2020-09-19] MEDS: HEPARIN SOD 5,000 UNIT/0.5 ML VIAL SQ SCH ×3 (05:38→22:44)
[2020-09-19 07:01] LABS: INR 1.6 (0.9-1.1); Prothrombin Time 15.5 Seconds (9.0-12.0)
[2020-09-19] MEDS: carvediloL 12.5 MG TAB PO SCH ×2 (08:11→16:02)
[2020-09-19] MEDS: ASPIRIN 81 MG ECTAB PO SCH (08:11)
[2020-09-19] MEDS: INSULIN ASPART 100 UNITS/ML 3 ML PEN SC SCH ×4 (08:11→20:49)
[2020-09-19] MEDS: BACLOFEN 10 MG TAB PO SCH (08:11)
[2020-09-19] MEDS: CLOPIDOGREL BISULFATE 75 MG TAB PO SCH (08:11)
[2020-09-19] MEDS: INSULIN GLARGINE SOLOSTAR 100 UNITS/ML 3 ML PEN SC SCH ×2 (08:11→20:48)
[2020-09-19] MEDS: lisinopril 10 MG TAB PO SCH (08:12)
[2020-09-19] MEDS: amLODIPine BESYLATE 5 MG TAB PO SCH (08:12)
--- NOTE | 2020-09-19 09:17 | Hospitalist Progress Note ---
Date of Service September 19, 2020 Assessment & Plan (1) Generalized weakness: Confusion Present on admission with worsening weakness and confusion CT head showed no acute intracranial abnormality No focal neuro deficit Currently alert and oriented to person and place, not to date. No longer confused Continue PT/OT while inpatient Fall precaution Did peer to peer yesterday. Request for [facility] denied yesterday as patient does not need daily provider eval. SNF should be appropriate. Per CM, only wants [facility] or [facility]. [facility] will not be able to take patient before tuesday. Will continue care for now till then (2) Hyponatremia: (3) Acute renal insufficiency: Possible related to dehydration due to acute illness from the recent COVID vaccine with Na 129 on admission He received 1L of IVF in ED and feels he is at baseline currently. Afebrile, no clear focus of infection at this time Hyponatremia is resovled LOOSE STOOL/BRIGHT RED Pt reported to have had episode of 2 loose stool in ED, 1 with bright red jelly substance No julio c bleeding noted on exam Hg has been stable No melena/hematochezia as per patient and RN Continue home warfarin INR is 1.6 today Continue to monitor (4) Hypomagnesemia: Repleted (5) Status post administration of all doses of COVID-19 vaccine series: Per admitting [facility] notes: Pt completed covid-19 vaccine series, TuesdaySeptember 08. Spiked fever on September 09 with generalized weakness, tmax 102.9 Likely mounted immune response and anticipated reaction of vaccine. Has been afebrile since admission (6) Status post cerebrovascular accident: Hx of cva with residual Right sided weakness, Continue Statin, plavix, asa, wafarin Continue Coumadin regimen: home regimen of warfarin 5mg MoFr and 7.5mg all other days (7) Type 2 diabetes mellitus: BSG 199 in ED A1c on 09/12/20 was 7.3 Blood glucose poorly controlled Increase insulin and lantus while inpatient for better glycemic control Will resume home regimen on discharge (8) CAD (coronary artery disease): Significant vascular disease including carotid artery stenosis, SMA stenosis, PAD HX of PAF on warfarin History of CABG x3 Continue ASA, statin, Plavix, Coreg and lisinopril (9) Aortic valve stenosis: Echo 10/2019, EF 65 to 69%: Left atrium mildly enlarged, small apical wall motion normality with akinesis of apical septal and anterior apical segments, aortic valve severely calcified, borderline severe aortic valve stenosis, grade 1 diastolic dysfxn monitor volume status closely (10) HTN (hypertension): BP has been quite labile with episodes of hypotension in the past. Continue amlodipine, coreg, lisinopril Will not make any changes now. Will continue to monitor for now If needed, may increase amlodipine to 10mg (11) DVT prophylaxis: Continue coumadin Can continue hep sq inpatient while INR is still subtherapeutic Dispo: Placement pending FULL CODE Admission and Anticipated Discharge Date Admission Date: September 13, 2020 Subjective Patient seen and examined. Patient denies any new complaints today Review of Systems Constitutional: no fever, no chills and no body aches Eyes: no problem reported Ear, Nose, Mouth, Throat: no problem reported Respiratory: no cough, no chest congestion and no dyspnea Cardiovascular: no chest pain, no dyspnea and no palpitations Gastrointestinal: no abdominal pain, no nausea, no vomiting, no constipation and no diarrhea/loose stools Genitourinary: no dysuria, no difficulty urinating and no urinary frequency Musculoskeletal: Right-sided weakness Neurologic: no tremor(s), no syncope, no headache(s) and no confusion Psychiatric: no depression and no anxiety Physical Exam Constitutional: + well hydrated; no acute distress Eyes: PERRL, conjunctivae normal, anicteric sclerae ENMT: external ear and nose normal, oropharynx normal Respiratory: normal respiratory effort, lungs clear to auscultation Cardiovascular: Rate/Rhythm: regular rate and regular rhythm S1-S2 Gastrointestinal (Abdomen): normal bowel sounds, soft, nontender, no hepatosplenomegaly Musculoskeletal: No pedal edema Neurologic: PERRL, EOMI, accommodation nl, no face palsy, no dysarthria Power is 4/5 on right upper extremities and 3/5 in right lower extremities Psychiatric: Orientation: alert, oriented to person and oriented to place Genitourinary: no CVA tenderness Results & Data Results & Data ([facility]) Vital Signs (Past 12 Hours) Vital Signs Temp Pulse Pulse Resp BP Pulse Ox 09/19/20 08:07 36.6 C 60 18 177/77 H 94 09/19/20 03:13 36.9 C 71 17 128/70 97 09/19/20 00:39 73 09/18/20 23:31 36.8 C 76 17 139/69 96 Laboratory Results Laboratory Results - last 24 hr 09/18/20 09/18/20 09/18/20 11:32 11:34 16:35 PT INR POC Glucose 306 H* 309 H* 125 H 09/18/20 09/19/20 09/19/20 20:14 06:24 07:48 PT 15.5 H INR 1.6 H POC Glucose 166 H 175 H
[2020-09-19] MEDS: WARFARIN SOD 5 MG TAB PO SCH (16:02)
[2020-09-19] MEDS: ATORVASTATIN 40 MG TAB PO SCH (20:47)
[2020-09-20] MEDS: HEPARIN SOD 5,000 UNIT/0.5 ML VIAL SQ SCH ×3 (05:22→21:03)
[2020-09-20 07:52] LABS: INR 1.6 (0.9-1.1); Prothrombin Time 16.1 Seconds (9.0-12.0)
[2020-09-20] MEDS: carvediloL 12.5 MG TAB PO SCH ×2 (08:05→17:12)
[2020-09-20] MEDS: INSULIN ASPART 100 UNITS/ML 3 ML PEN SC SCH ×4 (08:07→21:02)
[2020-09-20] MEDS: INSULIN GLARGINE SOLOSTAR 100 UNITS/ML 3 ML PEN SC SCH ×2 (08:07→21:02)
[2020-09-20] MEDS: amLODIPine BESYLATE 5 MG TAB PO SCH (08:08)
[2020-09-20] MEDS: lisinopril 10 MG TAB PO SCH (08:08)
[2020-09-20] MEDS: CLOPIDOGREL BISULFATE 75 MG TAB PO SCH (08:08)
[2020-09-20] MEDS: BACLOFEN 10 MG TAB PO SCH (08:08)
[2020-09-20] MEDS: ASPIRIN 81 MG ECTAB PO SCH (08:08)
--- NOTE | 2020-09-20 09:55 | Hospitalist Progress Note ---
Date of Service September 20, 2020 Assessment & Plan (1) Generalized weakness: Confusion Present on admission with worsening weakness and confusion CT head showed no acute intracranial abnormality No focal neuro deficit Currently alert and oriented to person and place, not to date. No longer confused Continue PT/OT while inpatient Fall precaution Per CM, only wants [facility] or [facility]. Request for [facility] was denied yesterday as patient does not need daily provider eval. SNF should be appropriate. Plan for discharge to [facility] on tuesday. Will continue care for now till then (2) Hyponatremia: (3) Acute renal insufficiency: Possible related to dehydration due to acute illness from the recent COVID vaccine with Na 129 on admission He received 1L of IVF in ED and feels he is at baseline currently. Afebrile, no clear focus of infection at this time Hyponatremia is resolved LOOSE STOOL/BRIGHT RED Pt reported to have had episode of 2 loose stool in ED, 1 with bright red jelly substance No julio c bleeding noted on exam Hg has been stable No melena/hematochezia as per patient and RN Continue home warfarin INR is 1.6 today Continue to monitor (4) Hypomagnesemia: Repleted (5) Status post administration of all doses of COVID-19 vaccine series: Per admitting [facility] notes: Pt completed covid-19 vaccine series, TuesdaySeptember 08. Spiked fever on September 09 with generalized weakness, tmax 102.9 Likely mounted immune response and anticipated reaction of vaccine. Has been afebrile since admission (6) Status post cerebrovascular accident: Hx of cva with residual Right sided weakness, Continue Statin, plavix, asa, wafarin Continue Coumadin regimen: home regimen of warfarin 5mg MoFr and 7.5mg all other days (7) Type 2 diabetes mellitus: BSG 199 in ED A1c on 09/12/20 was 7.3 Blood glucose poorly controlled Increase insulin and lantus while inpatient for better glycemic control Will resume home regimen on discharge (8) CAD (coronary artery disease): Significant vascular disease including carotid artery stenosis, SMA stenosis, PAD HX of PAF on warfarin History of CABG x3 Continue ASA, statin, Plavix, Coreg and lisinopril (9) Aortic valve stenosis: Echo 10/2019, EF 65 to 69%: Left atrium mildly enlarged, small apical wall motion normality with akinesis of apical septal and anterior apical segments, aortic valve severely calcified, borderline severe aortic valve stenosis, grade 1 diastolic dysfxn monitor volume status closely (10) HTN (hypertension): BP has been quite labile with episodes of hypotension Continue amlodipine, coreg, lisinopril at current doses (11) DVT prophylaxis: Continue coumadin Can continue hep sq inpatient while INR is still subtherapeutic Dispo: Placement pending FULL CODE Admission and Anticipated Discharge Date Admission Date: September 13, 2020 Subjective Patient seen and examined Patient has no complaints today Has right sided weakness. Other ROS negative Physical Exam Constitutional: + well hydrated; no acute distress Eyes: PERRL, conjunctivae normal, anicteric sclerae ENMT: external ear and nose normal, oropharynx normal Respiratory: normal respiratory effort, lungs clear to auscultation Cardiovascular: Rate/Rhythm: regular rate and regular rhythm Heart Sounds: + murmur S1-S2 Gastrointestinal (Abdomen): normal bowel sounds, soft, nontender, no hepatosplenomegaly Musculoskeletal: No pedal edema Neurologic: PERRL, EOMI, accommodation nl, no face palsy, no dysarthria Power is 4/5 on right upper extremities and 3/5 in right lower extremities Psychiatric: Orientation: alert, oriented to person and oriented to place Genitourinary: no CVA tenderness Results & Data Results & Data ([facility]) Vital Signs (Past 12 Hours) Vital Signs Temp Pulse Pulse Resp BP Pulse Ox 09/20/20 07:35 36.7 C 57 L 18 147/71 H 98 09/20/20 03:25 36.7 C 64 20 137/80 96 09/19/20 22:23 36.8 C 64 18 119/58 L 94 09/19/20 22:20 61
[2020-09-20] MEDS: WARFARIN SOD 7.5 MG TAB PO SCH (17:11)
[2020-09-20] MEDS: ATORVASTATIN 40 MG TAB PO SCH (21:02)
[2020-09-21] MEDS: HEPARIN SOD 5,000 UNIT/0.5 ML VIAL SQ SCH ×3 (06:25→22:03)
[2020-09-21 07:05] LABS: INR 1.6 (0.9-1.1); Prothrombin Time 16.1 Seconds (9.0-12.0)
[2020-09-21] MEDS: INSULIN ASPART 100 UNITS/ML 3 ML PEN SC SCH ×4 (08:29→20:19)
[2020-09-21] MEDS: carvediloL 12.5 MG TAB PO SCH ×2 (08:30→16:58)
[2020-09-21] MEDS: INSULIN GLARGINE SOLOSTAR 100 UNITS/ML 3 ML PEN SC SCH ×2 (08:30→20:17)
[2020-09-21] MEDS: lisinopril 10 MG TAB PO SCH (08:31)
[2020-09-21] MEDS: CLOPIDOGREL BISULFATE 75 MG TAB PO SCH (08:31)
[2020-09-21] MEDS: ASPIRIN 81 MG ECTAB PO SCH (08:31)
[2020-09-21] MEDS: amLODIPine BESYLATE 5 MG TAB PO SCH (08:31)
[2020-09-21] MEDS: BACLOFEN 10 MG TAB PO SCH (08:31)
--- NOTE | 2020-09-21 09:10 | Hospitalist Progress Note ---
Date of Service September 21, 2020 Assessment & Plan (1) Generalized weakness: Confusion Present on admission with worsening weakness and confusion CT head showed no acute intracranial abnormality No focal neuro deficit Currently alert and oriented to person and place, not to date. No longer confused Continue PT/OT while inpatient Fall precaution Per CM, only wants [facility]. Request for [facility] was denied yesterday as patient does not need daily provider eval. SNF should be appropriate. Plan for discharge to [facility] on tuesday. Will continue care for now till then (2) Hyponatremia: (3) Acute renal insufficiency: Possible related to dehydration due to acute illness from the recent COVID vaccine with Na 129 on admission He received 1L of IVF in ED and feels he is at baseline currently. Afebrile, no clear focus of infection at this time Hyponatremia is resolved LOOSE STOOL/BRIGHT RED Pt reported to have had episode of 2 loose stool in ED, 1 with bright red jelly substance No julio c bleeding noted on exam Hg remained stable stable No melena/hematochezia as per patient and RN (4) Hypomagnesemia: Repleted (5) Status post administration of all doses of COVID-19 vaccine series: Per admitting [facility] notes: Pt completed covid-19 vaccine series, TuesdaySeptember 08. Spiked fever on September 09 with generalized weakness, tmax 102.9 Likely mounted immune response and anticipated reaction of vaccine. Has been afebrile since admission (6) Status post cerebrovascular accident: Hx of cva with residual Right sided weakness, Continue Statin, plavix, asa, wafarin Patient has paroxysmal A. fib on Coumadin. Home regimen of warfarin 5mg MoFr and 7.5mg all other days Review of [facility] records show that patient was previously on 7.5 mg every day as of May 2020 but due to supratherapeutic INR, dose adjustments were made to her current home regimen. INR is still 1.6. We will plan to give 7.5 mg tomorrow instead of 5 mg and continue to monitor INR while inpatient. Patient will follow up with anticoagulation clinic on discharge for continued management (7) Type 2 diabetes mellitus: BSG 199 in ED A1c on 09/12/20 was 7.3 Blood glucose poorly controlled Increase insulin and lantus while inpatient for better glycemic control (8) CAD (coronary artery disease): Significant vascular disease including carotid artery stenosis, SMA stenosis, PAD HX of PAF on warfarin History of CABG x3 Continue ASA, statin, Plavix, Coreg and lisinopril (9) Aortic valve stenosis: Echo 10/2019, EF 65 to 69%: Left atrium mildly enlarged, small apical wall motion normality with akinesis of apical septal and anterior apical segments, aortic valve severely calcified, borderline severe aortic valve stenosis, grade 1 diastolic dysfxn monitor volume status closely (10) HTN (hypertension): BP has been quite labile with episodes of hypotension Continue amlodipine, coreg, lisinopril at current doses (11) DVT prophylaxis: Continue coumadin Can continue hep sq inpatient while INR is still subtherapeutic Dispo: Placement pending. Possible discharge tomorrow FULL CODE Admission and Anticipated Discharge Date Admission Date: September 13, 2020 Subjective Patient seen and examined. Has no new complaints today. Has right-sided weakness from CVA Physical Exam Constitutional: + well hydrated; no acute distress Eyes: PERRL, conjunctivae normal, anicteric sclerae ENMT: external ear and nose normal, oropharynx normal Respiratory: normal respiratory effort, lungs clear to auscultation Cardiovascular: Rate/Rhythm: regular rate and regular rhythm Heart Sounds: + murmur S1-S2 Gastrointestinal (Abdomen): normal bowel sounds, soft, nontender, no hepatosplenomegaly Musculoskeletal: No pedal edema Neurologic: PERRL, EOMI, accommodation nl, no face palsy, no dysarthria Power is 4/5 on right upper extremities and 3/5 in right lower extremities Psychiatric: Orientation: alert, oriented to person and oriented to place Genitourinary: no CVA tenderness Results & Data Results & Data ([facility]) Vital Signs (Past 12 Hours) Vital Signs Temp Pulse Pulse Resp BP Pulse Ox 09/21/20 07:48 54 L 09/21/20 07:31 36.6 C 60 18 132/77 98 09/21/20 03:07 36.6 C 59 L 18 137/71 97 09/20/20 21:55 36.8 C 61 18 138/71 96 Laboratory Results Laboratory Results - last 24 hr 09/20/20 09/20/20 09/20/20 11:45 16:37 19:55 PT INR POC Glucose 234 H 172 H 234 H 09/21/20 09/21/20 06:25 07:42 PT 16.1 H INR 1.6 H POC Glucose 181 H
[2020-09-21] MEDS: WARFARIN SOD 7.5 MG TAB PO SCH (16:57)
[2020-09-21] MEDS: ATORVASTATIN 40 MG TAB PO SCH (20:16)
[2020-09-22] MEDS: HEPARIN SOD 5,000 UNIT/0.5 ML VIAL SQ SCH ×2 (06:18→15:02)
[2020-09-22 07:13] LABS: INR 2.3 (0.9-1.1); Prothrombin Time 22.1 Seconds (9.0-12.0)
[2020-09-22] MEDS: carvediloL 12.5 MG TAB PO SCH (08:27)
[2020-09-22] MEDS: amLODIPine BESYLATE 5 MG TAB PO SCH (08:28)
[2020-09-22] MEDS: CLOPIDOGREL BISULFATE 75 MG TAB PO SCH (08:28)
[2020-09-22] MEDS: lisinopril 10 MG TAB PO SCH (08:28)
[2020-09-22] MEDS: BACLOFEN 10 MG TAB PO SCH (08:29)
[2020-09-22] MEDS: ASPIRIN 81 MG ECTAB PO SCH (08:29)
[2020-09-22] MEDS: INSULIN GLARGINE SOLOSTAR 100 UNITS/ML 3 ML PEN SC SCH (08:30)
[2020-09-22] MEDS: INSULIN ASPART 100 UNITS/ML 3 ML PEN SC SCH ×2 (08:30→12:48)
--- NOTE | 2020-09-22 11:30 | Discharge Summary ---
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 Of significance patient received his second Covid vaccine on 09/08. On 09/09 patient had increased weakness, "felt spacey, ill feeling and had a T-max of 102.9. gave patient Tylenol which resolved fever and did not be presented self. However he continues to feel weak and "spacey." This morning when patient was sitting at table eating breakfast felt he was more confused. She got very concerned due to his prior history of stroke as well as diabetes. She put ice under his tongue due to concern for hypoglycemia and called EMS. When they arrived BSG's were in 200s and he was brought to ED. In ED he remained hemodynamically stable. CT head was negative for acute abnormality. Lab work notable for hyponatremia with sodium of 129, corrected at 131, hypochloremia 95, BUN 30, creatinine 1.19, elevated lactic acid 3.2. He also had mild hypomagnesemia. He did have significant EKG anterior ischemic change however this was also present on EKG from March 2020 and he was without chest pain. In ED he received 1 L of IV fluid, 2 g IV cefepime and 1 g of magnesium sulfate. feels from cognitive standpoint he has improved since ibuprofen. Over the past 3 days his appetite has been normal and she has been pushing fluids to prevent dehydration. Approx 10- 8oz glasses daily. While in ED nurse reported 2 loose bowel movements, with last one having a red jelly substance. Admission Exam Per Admitting Provider Constitutional: Chronically ill-appearing male, WD/WN, vitals as above, NAD, sitting up in bed, pleasant, conversing easily Head: Normocephalic, Atraumatic Eyes: PERRL, conjunctivae normal, anicteric sclerae ENMT: external ear and nose normal, oropharynx normal mucous membranes dry Neck: trachea midline, no thyromegaly normal visual inspection Respiratory: normal respiratory effort, lungs clear to auscultation, no wheeze, rales, rhonchi. Normal insp/exp effort, no accessory muscle use Cardiovascular: RRR, harsh 3/6 ULISES noted throughout precordium, best RUSB, no edema Vessels: no JVD or carotid bruit Chest: normal inspection of chest Abdomen: normal bowel sounds, soft, nontender, no hepatosplenomegaly Musculoskeletal: no cyanosis or clubbing, patient with right hemiplegia, upper extremity 3/5, right leg brace in place, Skin: no rashes, warm and dry normal turgor Neurologic: PERRL, EOMI, accommodation nl, no face palsy, no dysarthria CN's II-XI intact bilaterally and moves all extremities Psychiatric: A+Ox3, answers questions appropriately euthymic affect Lymphatic: no cervical or axillary lymphadenopathy : red, jelly stool noted on bed sheet Principal Diagnosis Generalized weakness Hyponatremia Hypomagnesemia Acute kidney injury Discharge Exam Constitutional + well hydrated; no acute distress Eyes PERRL, conjunctivae normal, anicteric sclerae ENMT external ear and nose normal, oropharynx normal Respiratory normal respiratory effort, lungs clear to auscultation Cardiovascular Rate/Rhythm: regular rate and regular rhythm Heart Sounds: + murmur Extremities: no pedal edema Gastrointestinal (Abdomen) normal bowel sounds, soft, nontender, no hepatosplenomegaly Musculoskeletal Power is 4/5 on right upper extremities and 3/5 in right lower extremities Neurologic PERRL, EOMI, accommodation nl, no face palsy, no dysarthria Psychiatric Orientation: alert, oriented to person and oriented to place Genitourinary no CVA tenderness Discharge Data Allergies Allergy/AdvReac Type Severity Reaction Status Date / Time No Known Allergies Allergy Verified 09/11/20 11:56 Consultations 09/11/20 15:35 ED Decision to Admit Stat Ordered Studies 09/11/20 11:35 CT head/brain wo con Stat No acute intracranial hemorrhage, midline shift, intracranial mass, hydrocephalus, territorial ischemia or abnormal extra-axial collection. Motion degraded exam. The exam was then repeated which was also motion degraded. White matter hypodensity suggestive chronic microvascular ischemic disease. Involutional changes with chronic microvascular ischemic disease. Chronic appearing lacunar infarcts of the basal ganglia, inferior right cerebellar hemisphere and sarabjit. Cerebral vascular calcifications. The calvarium is intact. The paranasal sinuses, mastoid air cells, and middle ear cavities are clear. IMPRESSION: Motion degraded exam. No acute intracranial abnormality. Hospital Course (1) Generalized weakness: Confusion Presented on admission with worsening weakness and confusion CT head showed no acute intracranial abnormality No focal neuro deficit Currently alert and oriented to person and place, not to date. No longer confused (2) Hyponatremia: (3) Acute renal insufficiency: Possible related to dehydration due to acute illness from the recent COVID vaccine with Na 129 on admission He received 1L of IVF in ED and feels he is at baseline currently. Afebrile, no clear focus of infection at this time Cr was mildly increased at 1.18 from a baseline of 0.8. ENMANUEL resolved Hyponatremia is resolved LOOSE STOOL/BRIGHT RED Pt reported to have had episode of 2 loose stool in ED, 1 with bright red jelly substance No julio c bleeding noted on exam Hg remained stable stable at 11 No melena/hematochezia as per patient (4) Hypomagnesemia: Repleted (5) Status post administration of all doses of COVID-19 vaccine series: Per admitting [facility] notes: Pt completed covid-19 vaccine series, TuesdaySeptember 08. Spiked fever on September 09 with generalized weakness, tmax 102.9 Likely mounted immune response and anticipated reaction of vaccine. Has been afebrile since admission (6) Status post cerebrovascular accident: Hx of cva with residual Right sided weakness, Continue Statin, plavix, asa, wafarin Patient has paroxysmal A. fib on Coumadin. Home regimen of warfarin 5mg MoFr and 7.5mg all other days INR today is 2.3 (7) Type 2 diabetes mellitus: BSG 199 in ED A1c on 09/12/20 was 7.3 Continue home antidiabetic regimen (8) CAD (coronary artery disease): Significant vascular disease including carotid artery stenosis, SMA stenosis, PAD HX of PAF on warfarin History of CABG x3 Continue ASA, statin, Plavix, Coreg and lisinopril (9) Aortic valve stenosis: Echo 10/2019, EF 65 to 69%: Left atrium mildly enlarged, small apical wall motion normality with akinesis of apical septal and anterior apical segments, aortic valve severely calcified, borderline severe aortic valve stenosis, grade 1 diastolic dysfxn (10) HTN (hypertension): BP has been quite labile with episodes of hypotension Continue amlodipine, coreg, lisinopril at current doses [facility] Total Time Total Time Spent Total Time Spent (In Minutes): 40 Total Time Includes: Examination of the Patient, Discharge Planning and Medication Reconciliation Discharge Plan Discharge Items Patient Disposition: Transfer [facility] Reason For Visit: WEAKNESS, HYPONATREMIA Discharge Diagnosis: Generalized weakness Hyponatremia Hypomagnesemia Acute kidney injury Condition on Discharge: Fair Activity: As commented below Activity Comment: Per Physical therapist recommendations Non-emergency contact: Primary Care Provider Call non-emergency contact if: you have any medication questions and your symptoms worsen Follow-up/Referrals: Dereck Zaman, [Primary Care Provider] - Diet: Carb Consistent or DM2 and Heart Healthy Addtl Attending Provider Instructions: Mr. Turner You were brought to the hospital for generalized weakness. You were evaluated and found to have some electrolyte abnormalities including low sodium and magnesium. This was managed and normalized. You also had a mild acute kidney injury which is resolved. Your evaluated by physical therapist You are being discharged to [facility] living facility for [facility]hab. Your blood pressure has been labile with some episodes of low and high blood pressure. Continue your current blood pressure medications. Continue current dose of warfarin and follow-up with anticoagulation clinic for continued management. Continue follow-up with your primary doctor. It was a pleasure taking care of you Pending Studies at Discharge: No Stand-Alone Forms: My [facility] Skilled Items Patient informed of condition?: Yes DNR: No Discharge Level of Care: Skilled Communicable Disease: No Discharge Prognosis: Stable Lines: None Urinary Catheter: No Medications and DC Order Prescriptions: Continued nitroglycerin 0.4 mg tablet, sublingual 0.4 mg sublingual DIRECTED PRN (Reason: Chest Pain) RF: 0 atorvastatin [Lipitor] 80 mg tablet 80 mg PO HS Qty: 30 RF: 0 carvedilol 12.5 mg tablet 12.5 mg PO BID Qty: 60 RF: 0 Lantus U-100 Insulin 100 unit/mL solution See Rx Instructions .ROUTE .COMPLEX Qty: 10 RF: 0 clopidogrel [Plavix] 75 mg tablet 75 mg PO QAM Qty: 30 RF: 0 amlodipine [Norvasc] 5 mg tablet 5 mg PO QAM Qty: 30 RF: 0 aspirin 81 mg Tablet,Delayed Release (Dr/Ec) 81 mg PO QAM Qty: 30 RF: 0 insulin aspart U-100 [Novolog U-100 Insulin aspart] 100 unit/mL Solution 10 unit SUBCUT AC Qty: 10 RF: 0 metformin 1,000 mg tablet 1,000 mg PO BID Qty: 60 RF: 0 warfarin 5 mg tablet 5 mg PO MOFR Qty: 30 RF: 0 warfarin 5 mg tablet 7.5 mg PO SUTUWETHSA Qty: 30 RF: 0 lisinopril 30 mg tablet 30 mg PO DAILY Qty: 30 RF: 0 ondansetron 4 mg tablet,disintegrating 4 mg PO Q4H PRN (Reason: Nausea) Qty: 10 RF: 0 baclofen 5 mg tablet 5 mg PO QAM Qty: 30 RF: 0 Discharge Orders: Discharge Order (Routine); Ordered 09/22/20 Ordered By: Leticia Garrett/Other Patient Handouts: Managing Type 2 Diabetes, Managing Diabetes: The A1C Test Admission Data Admit Date/Time: 09/13/20 19:20 Attending Provider: Leticia Davila I. Admit Provider: Bryan Emanuel Primary Care Provider: Dereck Zaman Other Providers: Bryan Emanuel ; Rigo Roa ; Daren Ricardo [place] ; [facility] ; Fabián Ortiz ; Jb, Other Interventions: Discharge Summary Assessment (RN) Last Done: 09/22/20 11:54
[2020-09-22] MEDS: WARFARIN SOD 5 MG TAB PO SCH (15:02)
--- NOTE | 2020-10-01 17:27 | Coding Query ---
CODING QUERY To promote full compliance with coding requirements relating to patient care, provider participation is requested in all cases of tunnel kiln operator uncertainty. Please assist us with the question(s) below: Coding Question(s): Patient presenting with hyponatremia. CT head for confusion which was negative for intracranial lesions. 09/15 Progress note documents confusion due to mild dehydration status post covid vaccine. Please document, if known or suspected a diagnosis for the confusion . Thanks for your help! Yassine Chinchilla [employer]ENTS MANAGER [facility] Physician's Response(s): Suspected diagnosis Principal Diagnosis: "that condition established after study, to be chiefly responsible for occasioning the admission of the patient to the hospital for care." Co-Existing Principal Diagnosis: "when two or more diagnoses equally meet the criteria for principal diagnosis as determined by the circumstances of admission, diagnostic work up, and/or therapy provided, and the Alphabetic Index, Tabular List, or another coding guideline does not provide sequencing direction, any one of the diagnoses may be sequenced first." "When the physician has documented what appears to be a current diagnosis in the body of the record, but has not included the diagnosis in the final diagnostic statement, the physician should be asked whether the diagnosis should be added." (Source Coding [facility] 2 QTR90. p3-4) FREIDA
== END 2020-09-22 16:19 | DRG 641 ==
LOC: ED 10:08 → 2N 10:08 → SUATTDRO 16:41 → 2N 17:44 → SUATTDRO 09-13 19:20 → 3N 09-21 10:32

== ENCOUNTER 2021-01-11 15:44 | Inpatient (IN) ==
[2021-01-11 16:25] LABS: Basophils # (auto) 0.01 K/uL (0-0.2); Basophils % (auto) 0.1 %; Eosinophils # (auto) 0.17 K/uL (0-0.5); Eosinophils % (auto) 2.4 %; Hematocrit (blood only) 41.9 % (42-52); Hemoglobin 13.9 g/dL (14.0-18.0); Immature Granulocytes # (auto) 0.02 K/uL (0.00-0.02); Immature Granulocytes % (auto) 0.3 %; Lymphocytes # (auto) 1.97 K/uL (1.2-3.4); Lymphocytes % (auto) 27.6 %; Mean Corpuscular Hemoglobin 25.8 pg (25-34); Mean Corpuscular Hgb Conc 33.2 g/dL (32-36); Mean Corpuscular Volume 77.7 fL (80-100); Mean Platelet Volume 10.1 fL (7.4-10.4); Monocytes # (auto) 0.48 K/uL (0.11-0.59); Monocytes % (auto) 6.7 %; Neutrophils % (auto) 62.9 %; Platelet Count 231 K/uL (130-400); RDW Coefficient of Variation 15.4 % (11.5-14.5); RDW Standard Deviation 44.3 fL (36.4-46.3); Red Blood Count 5.39 M/uL (4.7-6.1); White Blood Count 7.15 K/uL (4.8-10.8)
[2021-01-11] MEDS ORDERED: OPTIRAY 320 125ml IV ONE (16:26)
[2021-01-11 16:27] LABS: Base Excess VBG 1.7 mEq/L; Oxygen Saturation VBG 75.4 %; pH VBG 7.4 (7.36-7.41)
[2021-01-11 16:29] LABS: iSTAT Creatinine 0.6 mg/dl (0.6-1.3); iSTAT Hemoglobin 14.3 g/dl (14.0-18.0); iSTAT Ionized Calcium 1.19 mmol/l (1.12-1.32); iSTAT Potassium 3.9 mmol/L (3.3-5.0)
[2021-01-11 16:35] LABS: INR 2.6 (0.9-1.1); Partial Thromboplastin Ratio 1.3; Partial Thromboplastin Time 34.4 Seconds (21.0-31.0); Prothrombin Time 24.8 Seconds (9.0-12.0)
[2021-01-11 16:43] LABS: Alanine Aminotransferase 27 U/L (12-78); Albumin Level 3.2 gm/dl (3.4-5.0); Aspartate Aminotransferase 12 U/L (15-37); BUN Creatinine Ratio 21.5 (10-20); Blood Urea Nitrogen 15 mg/dl (7-18); Calcium 8.8 mg/dl (8.5-10.1); Carbon Dioxide 27 mmol/L (21-32); Chloride 106 mmol/L (98-107); Est GFR (African American) 117.9 ml/min; Est GFR (Non-African American) 101.7 ml/min; Glucose 127 mg/dl (70-99); Lipase 64 U/L (73-393); Magnesium 1.3 mg/dl (1.8-2.4); Potassium 3.8 mmol/L (3.5-5.1); Sodium 141 mmol/L (136-145)
[2021-01-11 16:48] LABS: Albumin Globulin Ratio 0.7 (0.9-2); Alkaline Phosphatase 79 U/L (45-117); Bilirubin,Total 0.4 mg/dl (0.2-1); Globulin 4.5 gm/dl (2.5-4.0); Total Protein 7.7 gm/dl (6.4-8.2); Troponin I < 0.015 ng/ml (0-0.045)
[2021-01-11] MEDS ORDERED: ONDANSETRON INJ 2 MG/ML 2 ML VIAL ONE (16:56)
--- NOTE | 2021-01-11 17:04 | Emergency Department Note ---
History of Present Illness General Chief complaint: Altered Mental Status Stated complaint: CONFUSION Time Seen by Provider: 01/11/21 15:52 Source: family () and RN notes reviewed History of Present Illness Provider complaint: Altered mental status Onset (ago): hour(s) 3 Associated symptoms: + confusion and + weakness; no fever/chills or no seizure 60-year-old male presents to the emergency department for altered mental status. Per , the patient was lying in bed watching [employer] service with her when at approximately 1 PM he became acutely confused and started staring to the left. She reports no convulsions. She states that his blood sugar was high at 289 so she gave him 10 units of insulin. She denies any trauma. Patient is on Coumadin. Patient does have a history of [place] and stroke. Right-sided weakness from previous stroke. Home Medications Medication Instructions Recorded Confirmed Type nitroglycerin 0.4 mg sublingual 0.4 mg SUBLINGUAL DIRECTED PRN 08/09/19 01/11/21 History tablet amlodipine 5 mg tablet (Norvasc) 5 mg PO QAM #30 tab 09/22/20 01/11/21 Rx aspirin 81 mg tablet,delayed 81 mg PO QAM #30 tab 09/22/20 01/11/21 Rx release atorvastatin 80 mg tablet (Lipitor) 80 mg PO HS #30 tab 09/22/20 01/11/21 Rx baclofen 5 mg tablet 5 mg PO QAM #30 tab 09/22/20 01/11/21 Rx carvedilol 12.5 mg tablet 12.5 mg PO BID #60 tab 09/22/20 01/11/21 Rx clopidogrel 75 mg tablet (Plavix) 75 mg PO QAM #30 tab 09/22/20 01/11/21 Rx insulin glargine 100 unit/mL See Rx Instructions .ROUTE 09/22/20 01/11/21 Rx subcutaneous solution (Lantus .COMPLEX #10 ml U-100 Insulin) lisinopril 30 mg tablet 30 mg PO DAILY #30 tab 09/22/20 01/11/21 Rx ondansetron 4 mg disintegrating 4 mg PO Q4H PRN #10 tab 09/22/20 01/11/21 Rx tablet insulin aspart U-100 100 unit/mL 9 unit SUBCUT .AC LUNCH & SUPPER 01/11/21 01/11/21 History subcutaneous solution (Novolog U-100 Insulin aspart) insulin aspart U-100 100 unit/mL 10 unit SUBCUT QAM 01/11/21 01/11/21 History subcutaneous solution (Novolog U-100 Insulin aspart) metformin 1,000 mg tablet 500 mg PO BID 01/11/21 01/11/21 History tamsulosin 0.4 mg capsule 0.4 mg PO DAILY 01/11/21 01/11/21 History warfarin 5 mg tablet 5 mg PO .[id number] 01/11/21 01/11/21 History warfarin 5 mg tablet 7.5 mg PO TUTHSA 01/11/21 01/11/21 History Allergies Allergy/AdvReac Type Severity Reaction Status Date / Time No Known Allergies Allergy Verified 01/11/21 17:11 Past Med/Surg History Medical History (Updated 01/11/21 @ 18:42 by Neil Dahl) 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" Aortic valve stenosis BPH with obstruction/lower urinary tract symptoms CAD (coronary artery disease) Carotid stenosis Diabetic peripheral neuropathy associated with type 2 diabetes mellitus Dyslipidemia Hemiplegia affecting right dominant side History of pancreatitis HTN (hypertension) Hypomagnesemia Monoplegia affecting right dominant side Obesity Osteomyelitis of great toe of right foot Proliferative diabetic retinopathy Retinal edema Right foot drop Status post cerebrovascular accident Status post myocardial infarction Superior mesenteric artery stenosis Type 2 diabetes mellitus Surgical History Hx of vitrectomy S/P angioplasty with stent S/P CABG x 3 S/P PTCA (percutaneous transluminal coronary angioplasty) Family History Father Heart disease Social History Smoking Status: Former smoker Tobacco Type: Cigarettes Second Hand Exposure: No; Hx Alcohol Use: Yes Alcohol type: beer Hx Substance Use: No Preferred Language: Syrian Communication Ability: Effective Visual Impairment: No Limitations Hearing Ability: Normal Pit Hoist Operator Required: No Beliefs That Will Affect Care: None and Church marital status: Current Living Situation: Spouse Current Living Situation Comment: own home current occupational status: disabled Feels Safe at Home: Yes Assistive Devices: Brace/Splint/Immobilizer and Glasses Review of Systems Unobtainable due to cognitive status Physical Exam Vital Signs Vital Signs - 24 hr 01/11/21 15:49 01/11/21 15:54 01/11/21 16:21 Temperature 37.8 C H 37.7 C H Temperature Source Rectal Oral Pulse Rate 75 74 Pulse Rate [Apical] Pulse Rate from SpO2 Sensor 75 Pulse Rhythm Regular Pulse Rhythm [Apical] Pulse Strength Normal Pulse Strength [Apical] Respiratory Rate 13 18 17 Respiratory Effort / Characteristics Non-Labored Non-Labored Spontaneous Normal for Patient Respiratory Depth Normal Normal Respiratory Pattern Regular Blood Pressure 144/79 H 144/79 H Blood Pressure [Left Arm] 144/79 H Blood Pressure Mean 100 100 Blood Pressure Mean [Left Arm] 100 Blood Pressure Position Lying Blood Pressure Position [Left Arm] Pulse Oximetry 99 100 100 Oxygen Delivery Method Room Air Nasal Cannula Room Air Oxygen Flow Rate 3 Sepsis Recent Fever Within 48 Hours Yes Sepsis New/Unexplained Change in Mental Status Yes Sepsis Action Taken by Nursing Physician Notified Pulse Oximetry Post Tiitration 97 01/11/21 17:10 01/11/21 18:01 Temperature Temperature Source Pulse Rate 68 Pulse Rate [Apical] 65 Pulse Rate from SpO2 Sensor 68 Pulse Rhythm Pulse Rhythm [Apical] Regular Pulse Strength Pulse Strength [Apical] Normal Respiratory Rate 16 16 Respiratory Effort / Characteristics Non-Labored Spontaneous Respiratory Depth Normal Respiratory Pattern Regular Blood Pressure 180/78 H Blood Pressure [Left Arm] 190/103 H Blood Pressure Mean 112 Blood Pressure Mean [Left Arm] 132 Blood Pressure Position Blood Pressure Position [Left Arm] Lying Pulse Oximetry 100 100 Oxygen Delivery Method Nasal Cannula Nasal Cannula Oxygen Flow Rate 2 2 Sepsis Recent Fever Within 48 Hours Sepsis New/Unexplained Change in Mental Status Sepsis Action Taken by Nursing Pulse Oximetry Post Tiitration Physical Exam GENERAL: Distressed unable to answer questions and staring to the left side. Patient is able to say his name in response to pain. HENT: Exam performed. - Head: Normocephalic and atraumatic. - Right Ear: External ear normal. No mastoid tenderness. - Left Ear: External ear normal. No mastoid tenderness. EYES: Conjunctivae and EOM are normal. Pupils are equal, round, and reactive to light. Right eye exhibits no discharge. Left eye exhibits no discharge. No scleral icterus. NECK: Normal range of motion. Neck supple. No JVD present. No spinous process tenderness present. No carotid bruit present. No rigidity. No tracheal deviation and normal range of motion present. No Brudzinski's sign and no Kernig's sign noted. CV: Normal rate, regular rhythm, normal heart sounds and intact distal pulses. There is no peripheral edema. Palpable radial pulses bue. PULM/CHEST: Effort normal and breath sounds normal. No respiratory distress. No stridor. He has no wheezes. He has no rales. - Chest Wall: He exhibits no tenderness. ABD: The abdomen is soft. NEURO: Left lower extremity weakness. Right-sided weakness with right lower extremity in leg brace. SKIN: Skin is warm and dry. He is not diaphoretic. PSYCH: He has a normal mood and affect. Behavior is normal. Judgment and thought content normal. Course Course 1551: The patient was evaluated in room B3. A complete history and physical exam was performed Cardiac monitoring: An order was placed for continuous cardiac monitoring. The monitor shows a rate of 70 with sinus rhythm On arrival the patient's EKG shows sinus rhythm with a rate of 77. OR QRS and QTc intervals are within normal limits. There is T wave inversion in leads I and aVL as well as ST elevation in leads V1, V2 and V3 however when compared to the EKG done in September 2020 these changes are stable. No new changes. Computer is reading is an acute STEMI however again there are no new changes and no heart alert will be called. Patient is presenting for altered mental status. Patient is unable to say if he is having chest pain or difficulty breathing. stated the patient's symptoms started acutely 3 hours ago. Stroke, seizure, intoxication, infectious source, metabolic source for his altered mental status are strongly considered. Patient is on Coumadin. [id number] INR is 3.1. Given that the patient is on Coumadin and has a therapeutic INR, no TPA would be recommended, and thus no stroke alert called. Patient's Accu-Chek on arrival was within normal limits. I-STAT showed that the patient had a stable creatinine. Patient will be taken to the CT scanner for CT of the head, CTA of the head, and CTA of the neck. 1740: Patient had some acute vomiting. Zofran 4 mg ordered for the patient. Patient's rectal temperature 37.7. Patient does have hypertension, blood pressure is elevated.Labs show normal white blood cell count, therapeutic INR of 2.6, VBG within normal limits, lactate is 2 troponin is negative urinalysis negative and magnesium is 1.4. Imaging shows no acute hemorrhage, mass-effect, or evidence of acute territorial ischemia. There is moderate stenosis in the right posterior cerebral artery and right middle cerebral artery which are similar to previous CTAs compared in November 2019. 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 Chest x-ray shows no acute infiltrate. The patient's INR is therapeutic. Patient is not a TPA candidate due to this. I did discuss the case with Dr. Danish Santiago teleneurology who agrees the patient is not a TPA candidate and that there would be little utilization to reverse the patient's Coumadin/INR level with vitamin K and then push TPA. Patient will be admitted to the [facility] team for further work-up of his altered mental status. Is thought at this time that his altered mental status could either be due to stroke or seizure. Patient does not have a fever greater than 100.4 and has full range of motion of his neck it is not thought that the patient is suffering from meningitis or encep halitis given the acute onset of his symptoms, fever less than 100.4, normal white blood cell count, and normal lactic acid level. Discussed the case with Rosina Maldonado PA-C who stated to admit to Dr. Santana. Aspirin rectally is ordered for the patient. Magnesium replacement started in the emergency department. Administered Medications Magnesium Sulfate/Dextrose (Magnesium Sulfate / D5w) 1 gm in 100 mls @ 100 m ls/hr IV Q1H SUMA Stop: 01/11/21 19:23 Last Admin: 01/11/21 17:53 Dose: 100 mls/hr Documented by: [id number] Discontinued Medications Aspirin (Aspirin 300 Mg Supp) 300 mg OR ONE ONE Stop: 01/11/21 17:24 Last Admin: 01/11/21 17:53 Dose: 300 mg Documented by: [id number] Ioversol (Optiray 320 125ml) 120 ml IV ONCE ONE Stop: 01/11/21 16:27 Last Admin: 01/11/21 16:26 Dose: 120 ml Documented by: [id number] Ondansetron HCl (Ondansetron Inj 2 Mg/Ml 2 Ml Vial) Confirm Administered Dose 4 mg .ROUTE .STK-MED ONE Stop: 01/11/21 16:57 Last Admin: 01/11/21 16:57 Dose: 4 mg Documented by: [id number] Medical Decision Making Laboratory Data Result diagrams: 01/11/21 16:12 01/11/21 16:12 Lab Results 01/11/21 01/11/21 01/11/21 Range/Units 16:02 16:03 16:12 WBC (4.8-10.8) K/uL RBC (4.7-6.1) M/uL Hgb (14.0-18.0) g/dL POC Hgb (14.0-18.0) g/dl Hct (42-52) % POC Hct (42-52) % MCV (80-100) fL MCH (25-34) pg MCHC (32-36) g/dL RDW Std Deviation (36.4-46.3) fL RDW Coeff of Caroline (11.5-14.5) % Plt Count (130-400) K/uL MPV (7.4-10.4) fL Immature Gran % (Auto) % Neut % (Auto) % Lymph % (Auto) % [place] % (Auto) % Eos % (Auto) % Baso % (Auto) % Neut # (Auto) (1.4-6.5) K/uL Lymph # (Auto) (1.2-3.4) K/uL [place] # (Auto) (0.11-0.59) K/uL Eos # (Auto) (0-0.5) K/uL Baso # (Auto) (0-0.2) K/uL Immature Gran # (Auto) (0.00-0.02) K/uL PT (9.0-12.0) Seconds POC INR 3.1 H (0.9-1.1) INR (0.9-1.1) APTT (21.0-31.0) Seconds PTT Ratio VBG pH (7.36-7.41) VBG pCO2 (38-50) mmHg VBG pO2 mmHg VBG HCO3 mmol/L VBG O2 Saturation % VBG Base Excess mEq/L Barometric Pressure mm/Hg POC Sodium (135-144) mmol/L Sodium (136-145) mmol/L POC Potassium (3.3-5.0) mmol/L Potassium (3.5-5.1) mmol/L POC Chloride (101-112) mmol/L Chloride (98-107) mmol/L Carbon Dioxide (21-32) mmol/L POC Total CO2 (24-31) mmol/L Anion Gap (3-11) POC Anion Gap (16-25) mmol/L POC BUN (7-18) mg/dl BUN (7-18) mg/dl Creatinine (0.6-1.4) mg/dl POC Creatinine (0.6-1.3) mg/dl Est Cr Clr Drug Dosing Est GFR ( Amer) ml/min Est GFR (Non-Af Amer) ml/min BUN/Creatinine Ratio (10-20) Glucose (70-99) mg/dl POC Glucose 123 H (70-99) mg/dl POC Glucose (other) (70-99) mg/dl Lactate (0.4-2.0) mmol/L Calcium (8.5-10.1) mg/dl POC Ioniz Calcium Carolee (1.12-1.32) mmol/l Magnesium (1.8-2.4) mg/dl Total Bilirubin (0.2-1) mg/dl AST (15-37) U/L ALT (12-78) U/L Alkaline Phosphatase (45-117) U/L Ammonia (11-32) umol/L Troponin I (0-0.045) ng/ml Total Protein (6.4-8.2) gm/dl Albumin (3.4-5.0) gm/dl Globulin (2.5-4.0) gm/dl Albumin/Globulin Ratio (0.9-2) Lipase (73-393) U/L Urine Color Urine Appearance (Clear) Urine pH (4.5-7.5) Ur Specific Coats (1.000-1.030) Urine Protein (Negative) Urine Glucose (UA) (Negative) Urine Ketones (Negative) Urine Blood (Negative) Urine Nitrite (Negative) Urine Bilirubin (Negative) Urine Urobilinogen (Negative) Ur Leukocyte Esterase (Negative) Urine Opiates Screen (Neg) Ur Methadone, Qual (Neg) Urine Barbiturates (Neg) Ur Phencyclidine (PCP) (Neg) U Amphetamin/Meth Scrn (Neg) MDMA (Ecstasy) Screen (Neg) U Benzodiazepines Scrn (Neg) Ur Cocaine Metabolite (Neg) U Marijuana (THC) Screen (Neg) Blood Type A Positive Antibody Screen NEGATIVE 01/11/21 01/11/21 01/11/21 Range/Units 16:12 16:12 16:12 WBC 7.15 (4.8-10.8) K/uL RBC 5.39 (4.7-6.1) M/uL Hgb 13.9 L (14.0-18.0) g/dL POC Hgb (14.0-18.0) g/dl Hct 41.9 L (42-52) % POC Hct (42-52) % MCV 77.7 L (80-100) fL MCH 25.8 (25-34) pg MCHC 33.2 (32-36) g/dL RDW Std Deviation 44.3 (36.4-46.3) fL RDW Coeff of Caroline 15.4 H (11.5-14.5) % Plt Count 231 (130-400) K/uL MPV 10.1 (7.4-10.4) fL Immature Gran % (Auto) 0.3 % Neut % (Auto) 62.9 % Lymph % (Auto) 27.6 % [place]asta % (Auto) 6.7 % Eos % (Auto) 2.4 % Baso % (Auto) 0.1 % Neut # (Auto) 4.50 (1.4-6.5) K/uL Lymph # (Auto) 1.97 (1.2-3.4) K/uL [place]asta # (Auto) 0.48 (0.11-0.59) K/uL Eos # (Auto) 0.17 (0-0.5) K/uL Baso # (Auto) 0.01 (0-0.2) K/uL Immature Gran # (Auto) 0.02 (0.00-0.02) K/uL PT 24.8 H (9.0-12.0) Seconds POC INR (0.9-1.1) INR 2.6 H (0.9-1.1) APTT 34.4 H (21.0-31.0) Seconds PTT Ratio 1.3 VBG pH (7.36-7.41) VBG pCO2 (38-50) mmHg VBG pO2 mmHg VBG HCO3 mmol/L VBG O2 Saturation % VBG Base Excess mEq/L Barometric Pressure mm/Hg POC Sodium (135-144) mmol/L Sodium 141 (136-145) mmol/L POC Potassium (3.3-5.0) mmol/L Potassium 3.8 (3.5-5.1) mmol/L POC Chloride (101-112) mmol/L Chloride 106 (98-107) mmol/L Carbon Dioxide 27 (21-32) mmol/L POC Total CO2 (24-31) mmol/L Anion Gap 8.0 (3-11) POC Anion Gap (16-25) mmol/L POC BUN (7-18) mg/dl BUN 15 (7-18) mg/dl Creatinine 0.69 (0.6-1.4) mg/dl POC Creatinine (0.6-1.3) mg/dl Est Cr Clr Drug Dosing Not Reportable Est GFR ( Amer) 117.9 ml/min Est GFR (Non-Af Amer) 101.7 ml/min BUN/Creatinine Ratio 21.5 H (10-20) Glucose 127 H (70-99) mg/dl POC Glucose (70-99) mg/dl POC Glucose (other) (70-99) mg/dl Lactate (0.4-2.0) mmol/L Calcium 8.8 (8.5-10.1) mg/dl POC Ioniz Calcium Carolee (1.12-1.32) mmol/l Magnesium 1.3 L (1.8-2.4) mg/dl Total Bilirubin 0.4 (0.2-1) mg/dl AST 12 L (15-37) U/L ALT 27 (12-78) U/L Alkaline Phosphatase 79 (45-117) U/L Ammonia (11-32) umol/L Troponin I < 0.015 (0-0.045) ng/ml Total Protein 7.7 (6.4-8.2) gm/dl Albumin 3.2 L (3.4-5.0) gm/dl Globulin 4.5 H (2.5-4.0) gm/dl Albumin/Globulin Ratio 0.7 L (0.9-2) Lipase 64 L (73-393) U/L Urine Color Urine Appearance (Clear) Urine pH (4.5-7.5) Ur Specific Coats (1.000-1.030) Urine Protein (Negative) Urine Glucose (UA) (Negative) Urine Ketones (Negative) Urine Blood (Negative) Urine Nitrite (Negative) Urine Bilirubin (Negative) Urine Urobilinogen (Negative) Ur Leukocyte Esterase (Negative) Urine Opiates Screen (Neg) Ur Methadone, Qual (Neg) Urine Barbiturates (Neg) Ur Phencyclidine (PCP) (Neg) U Amphetamin/Meth Scrn (Neg) MDMA (Ecstasy) Screen (Neg) U Benzodiazepines Scrn (Neg) Ur Cocaine Metabolite (Neg) U Marijuana (THC) Screen (Neg) Blood Type Antibody Screen 01/11/21 01/11/21 01/11/21 Range/Units 16:12 16:12 16:12 WBC (4.8-10.8) K/uL RBC (4.7-6.1) M/uL Hgb (14.0-18.0) g/dL POC Hgb (14.0-18.0) g/dl Hct (42-52) % POC Hct (42-52) % MCV (80-100) fL MCH (25-34) pg MCHC (32-36) g/dL RDW Std Deviation (36.4-46.3) fL RDW Coeff of Caroline (11.5-14.5) % Plt Count (130-400) K/uL MPV (7.4-10.4) fL Immature Gran % (Auto) % Neut % (Auto) % Lymph % (Auto) % [place] % (Auto) % Eos % (Auto) % Baso % (Auto) % Neut # (Auto) (1.4-6.5) K/uL Lymph # (Auto) (1.2-3.4) K/uL [place] # (Auto) (0.11-0.59) K/uL Eos # (Auto) (0-0.5) K/uL Baso # (Auto) (0-0.2) K/uL Immature Gran # (Auto) (0.00-0.02) K/uL PT (9.0-12.0) Seconds POC INR (0.9-1.1) INR (0.9-1.1) APTT (21.0-31.0) Seconds PTT Ratio VBG pH 7.40 (7.36-7.41) VBG pCO2 44 (38-50) mmHg VBG pO2 43 mmHg VBG HCO3 27 mmol/L VBG O2 Saturation 75.4 % VBG Base Excess 1.7 mEq/L Barometric Pressure 733.8 mm/Hg POC Sodium (135-144) mmol/L Sodium (136-145) mmol/L POC Potassium (3.3-5.0) mmol/L Potassium (3.5-5.1) mmol/L POC Chloride (101-112) mmol/L Chloride (98-107) mmol/L Carbon Dioxide (21-32) mmol/L POC Total CO2 (24-31) mmol/L Anion Gap (3-11) POC Anion Gap (16-25) mmol/L POC BUN (7-18) mg/dl BUN (7-18) mg/dl Creatinine (0.6-1.4) mg/dl POC Creatinine (0.6-1.3) mg/dl Est Cr Clr Drug Dosing Est GFR ( Amer) ml/min Est GFR (Non-Af Amer) ml/min BUN/Creatinine Ratio (10-20) Glucose (70-99) mg/dl POC Glucose (70-99) mg/dl POC Glucose (other) (70-99) mg/dl Lactate 2.0 (0.4-2.0) mmol/L Calcium (8.5-10.1) mg/dl POC Ioniz Calcium Carolee (1.12-1.32) mmol/l Magnesium (1.8-2.4) mg/dl Total Bilirubin (0.2-1) mg/dl AST (15-37) U/L ALT (12-78) U/L Alkaline Phosphatase (45-117) U/L Ammonia 28.1 (11-32) umol/L Troponin I (0-0.045) ng/ml Total Protein (6.4-8.2) gm/dl Albumin (3.4-5.0) gm/dl Globulin (2.5-4.0) gm/dl Albumin/Globulin Ratio (0.9-2) Lipase (73-393) U/L Urine Color Urine Appearance (Clear) Urine pH (4.5-7.5) Ur Specific Coats (1.000-1.030) Urine Protein (Negative) Urine Glucose (UA) (Negative) Urine Ketones (Negative) Urine Blood (Negative) Urine Nitrite (Negative) Urine Bilirubin (Negative) Urine Urobilinogen (Negative) Ur Leukocyte Esterase (Negative) Urine Opiates Screen (Neg) Ur Methadone, Qual (Neg) Urine Barbiturates (Neg) Ur Phencyclidine (PCP) (Neg) U Amphetamin/Meth Scrn (Neg) MDMA (Ecstasy) Screen (Neg) U Benzodiazepines Scrn (Neg) Ur Cocaine Metabolite (Neg) U Marijuana (THC) Screen (Neg) Blood Type Antibody Screen 01/11/21 01/11/21 01/11/21 Range/Units 16:17 17:12 17:12 WBC (4.8-10.8) K/uL RBC (4.7-6.1) M/uL Hgb (14.0-18.0) g/dL POC Hgb 14.3 (14.0-18.0) g/dl Hct (42-52) % POC Hct 42 (42-52) % MCV (80-100) fL MCH (25-34) pg MCHC (32-36) g/dL RDW Std Deviation (36.4-46.3) fL RDW Coeff of Caroline (11.5-14.5) % Plt Count (130-400) K/uL MPV (7.4-10.4) fL Immature Gran % (Auto) % Neut % (Auto) % Lymph % (Auto) % [place] % (Auto) % Eos % (Auto) % Baso % (Auto) % Neut # (Auto) (1.4-6.5) K/uL Lymph # (Auto) (1.2-3.4) K/uL [place] # (Auto) (0.11-0.59) K/uL Eos # (Auto) (0-0.5) K/uL Baso # (Auto) (0-0.2) K/uL Immature Gran # (Auto) (0.00-0.02) K/uL PT (9.0-12.0) Seconds POC INR (0.9-1.1) INR (0.9-1.1) APTT (21.0-31.0) Seconds PTT Ratio VBG pH (7.36-7.41) VBG pCO2 (38-50) mmHg VBG pO2 mmHg VBG HCO3 mmol/L VBG O2 Saturation % VBG Base Excess mEq/L Barometric Pressure mm/Hg POC Sodium 142 (135-144) mmol/L Sodium (136-145) mmol/L POC Potassium 3.9 (3.3-5.0) mmol/L Potassium (3.5-5.1) mmol/L POC Chloride 102 (101-112) mmol/L Chloride (98-107) mmol/L Carbon Dioxide (21-32) mmol/L POC Total CO2 24 (24-31) mmol/L Anion Gap (3-11) POC Anion Gap 22.0 (16-25) mmol/L POC BUN 16 (7-18) mg/dl BUN (7-18) mg/dl Creatinine (0.6-1.4) mg/dl POC Creatinine 0.6 (0.6-1.3) mg/dl Est Cr Clr Drug Dosing Est GFR ( Amer) ml/min Est GFR (Non-Af Amer) ml/min BUN/Creatinine Ratio (10-20) Glucose (70-99) mg/dl POC Glucose (70-99) mg/dl POC Glucose (other) 129 H (70-99) mg/dl Lactate (0.4-2.0) mmol/L Calcium (8.5-10.1) mg/dl POC Ioniz Calcium Carolee 1.19 (1.12-1.32) mmol/l Magnesium (1.8-2.4) mg/dl Total Bilirubin (0.2-1) mg/dl AST (15-37) U/L ALT (12-78) U/L Alkaline Phosphatase (45-117) U/L Ammonia (11-32) umol/L Troponin I (0-0.045) ng/ml Total Protein (6.4-8.2) gm/dl Albumin (3.4-5.0) gm/dl Globulin (2.5-4.0) gm/dl Albumin/Globulin Ratio (0.9-2) Lipase (73-393) U/L Urine Color Yellow Urine Appearance Clear (Clear) Urine pH 7.0 (4.5-7.5) Ur Specific Coats 1.037 H (1.000-1.030) Urine Protein Negative (Negative) Urine Glucose (UA) Trace H (Negative) Urine Ketones Trace H (Negative) Urine Blood Negative (Negative) Urine Nitrite Negative (Negative) Urine Bilirubin Negative (Negative) Urine Urobilinogen Negative (Negative) Ur Leukocyte Esterase Negative (Negative) Urine Opiates Screen Neg (Neg) Ur Methadone, Qual Neg (Neg) Urine Barbiturates Neg (Neg) Ur Phencyclidine (PCP) Neg (Neg) U Amphetamin/Meth Scrn Neg (Neg) MDMA (Ecstasy) Screen Neg (Neg) U Benzodiazepines Scrn Neg (Neg) Ur Cocaine Metabolite Neg (Neg) U Marijuana (THC) Screen Neg (Neg) Blood Type Antibody Screen 01/11/21 Range/Units 17:50 WBC (4.8-10.8) K/uL RBC (4.7-6.1) M/uL Hgb (14.0-18.0) g/dL POC Hgb (14.0-18.0) g/dl Hct (42-52) % POC Hct (42-52) % MCV (80-100) fL MCH (25-34) pg MCHC (32-36) g/dL RDW Std Deviation (36.4-46.3) fL RDW Coeff of Caroline (11.5-14.5) % Plt Count (130-400) K/uL MPV (7.4-10.4) fL Immature Gran % (Auto) % Neut % (Auto) % Lymph % (Auto) % [place] % (Auto) % Eos % (Auto) % Baso % (Auto) % Neut # (Auto) (1.4-6.5) K/uL Lymph # (Auto) (1.2-3.4) K/uL [place] # (Auto) (0.11-0.59) K/uL Eos # (Auto) (0-0.5) K/uL Baso # (Auto) (0-0.2) K/uL Immature Gran # (Auto) (0.00-0.02) K/uL PT (9.0-12.0) Seconds POC INR (0.9-1.1) INR (0.9-1.1) APTT (21.0-31.0) Seconds PTT Ratio VBG pH (7.36-7.41) VBG pCO2 (38-50) mmHg VBG pO2 mmHg VBG HCO3 mmol/L VBG O2 Saturation % VBG Base Excess mEq/L Barometric Pressure mm/Hg POC Sodium (135-144) mmol/L Sodium (136-145) mmol/L POC Potassium (3.3-5.0) mmol/L Potassium (3.5-5.1) mmol/L POC Chloride (101-112) mmol/L Chloride (98-107) mmol/L Carbon Dioxide (21-32) mmol/L POC Total CO2 (24-31) mmol/L Anion Gap (3-11) POC Anion Gap (16-25) mmol/L POC BUN (7-18) mg/dl BUN (7-18) mg/dl Creatinine (0.6-1.4) mg/dl POC Creatinine (0.6-1.3) mg/dl Est Cr Clr Drug Dosing Est GFR ( Amer) ml/min Est GFR (Non-Af Amer) ml/min BUN/Creatinine Ratio (10-20) Glucose (70-99) mg/dl POC Glucose 93 (70-99) mg/dl POC Glucose (other) (70-99) mg/dl Lactate (0.4-2.0) mmol/L Calcium (8.5-10.1) mg/dl POC Ioniz Calcium Carolee (1.12-1.32) mmol/l Magnesium (1.8-2.4) mg/dl Total Bilirubin (0.2-1) mg/dl AST (15-37) U/L ALT (12-78) U/L Alkaline Phosphatase (45-117) U/L Ammonia (11-32) umol/L Troponin I (0-0.045) ng/ml Total Protein (6.4-8.2) gm/dl Albumin (3.4-5.0) gm/dl Globulin (2.5-4.0) gm/dl Albumin/Globulin Ratio (0.9-2) Lipase (73-393) U/L Urine Color Urine Appearance (Clear) Urine pH (4.5-7.5) Ur Specific Coats (1.000-1.030) Urine Protein (Negative) Urine Glucose (UA) (Negative) Urine Ketones (Negative) Urine Blood (Negative) Urine Nitrite (Negative) Urine Bilirubin (Negative) Urine Urobilinogen (Negative) Ur Leukocyte Esterase (Negative) Urine Opiates Screen (Neg) Ur Methadone, Qual (Neg) Urine Barbiturates (Neg) Ur Phencyclidine (PCP) (Neg) U Amphetamin/Meth Scrn (Neg) MDMA (Ecstasy) Screen (Neg) U Benzodiazepines Scrn (Neg) Ur Cocaine Metabolite (Neg) U Marijuana (THC) Screen (Neg) Blood Type Antibody Screen Imaging Data Radiologist's Impression: Chest X-Ray 01/11/21 16:00 SINGLE VIEW CHEST CLINICAL HISTORY: Generalized weakness. FINDINGS: An AP, portable, upright chest radiograph is compared to study dated 09/11/2020. Correlation is made with chest CT dated 11/17/2017. The patient is status post midline sternotomy. The heart is mildly enlarged noting atherosclerotic calcification of the thoracic aorta. The pulmonary vasculature is noncongested. There is mild bibasilar atelectasis. No airspace consolidation or pleural effusion is identified. No pneumothorax is seen. The skeletal structures appear osteopenic. The bony thorax is grossly intact. IMPRESSION: Cardiomegaly with no acute cardiopulmonary abnormality. ACT 112: Negative or not required by law. Electronically signed by: Donny Fernando M.D. 01/11/2021 5:[address] 01/11/21 16:[address] OF THE BRAIN; CT ANGIOGRAM OF THE BRAIN; CT ANGIOGRAM OF THE NECK CLINICAL HISTORY: Strokelike symptoms. COMPARISON STUDY: CT of the brain dated 09/11/2020. CT angiogram of the head and neck dated 12/03/2019. TECHNIQUE: Unenhanced axial CT scan of the brain is performed. Subsequently, following the IV administration of 120 of Optiray 320, CT angiogram of the head and neck was performed from the aortic arch to the vertex. Images are reviewed in the axial, sagittal, and coronal planes. 3-D MIPS images are created and assessed. IV contrast was administered without complication. All measurements were calculated based on NASCET criteria. A dose lowering technique was utili zed adhering to the principles of ALARA. CT DOSE: 1556.14 mGy.cm FINDINGS: Brain parenchyma: There is age-related involutional change noting advanced subcortical and periventricular microangiopathic disease. There is no he morrhage, mass effect, or evidence of acute territorial ischemia by CT criteria. There is no evidence of enhancing mass lesion on the angiogram phase images. The ventricles, sulci, and cisterns are prominent secondary to involutional change. Chronic lacunar infarcts are noted in the basal ganglia, the left sarabjit, and the thalami. Rose-white matter differentiation is preserved. No extra-axial fluid collection is seen. Thoracic aorta: There is atherosclerotic calcification of the thoracic aorta. Visualized portions of the thoracic aorta are normal in caliber. The aortic arch demonstrates standard 3-vessel anatomy. Right carotid arterial system: The right common carotid artery is widely patent, as are the right internal and external carotid arteries. Advanced atherosclerotic plaque is noted in the carotid bulb. Left carotid arterial system: The left common carotid artery is widely patent, as are the left internal and external carotid arteries. Advanced atherosclerotic plaque is seen in the carotid bulb. Vertebral arteries: The vertebral arteries are widely patent in the neck and codominant. Subclavian arteries: Atherosclerotic plaque causes less than 50% luminal narrowing of the left subclavian artery below the thoracic outlet. The subclavian arteries are otherwise widely patent bilaterally. Intracranial vasculature: There is atherosclerotic calcification of the cavernous carotid and vertebral arteries. Atherosclerotic plaque and irregularity seen throughout the intracranial vessels. There is a large right posterior communicating artery. The internal carotid arteries are patent at the skull base, as are the anterior and middle cerebral arteries bilaterally. There is focal moderate stenosis of the M3 segment of the right middle cerebral artery seen on image #164. The vertebrobasilar system and posterior cerebral arteries are patent. The vertebral arteries are codominant. Atherosclerotic plaque, irregularity, and mild stenoses are seen throughout the vertebral arteries. 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 There is moderate stenosis of the right posterior cerebral artery seen on image #137. No focal vessel cutoff is seen throughout the intracranial circulation. Jugular veins: Patent bilaterally. Dural sinuses: Patent. Upper chest: The patient is status post midline sternotomy. Partially visualized upper lobe lung parenchyma appears clear. Soft tissues: The visualized pharyngeal soft tissues are normal in appearance noting angiographic phase technique. The oropharyngeal airway appears widely patent. Low-attenuation thyroid nodules measure up to 1.8 cm. The salivary glands are normal in appearance. No cervical lymphadenopathy is seen. Skeletal structures: The calvarium appears intact. The cervical spine is maintained noting mild spondylotic change. No lytic or blastic lesion is seen. Orbits: The bony orbits are intact. Orbital contents are normal as visualized. Sinuses and mastoids: There is a 2 cm retention cyst in the right maxillary antrum. The remaining paranasal sinuses are clear. The mastoid air cells are well pneumatized. IMPRESSION: 1. There is no hemorrhage, mass effect, or evidence of acute territorial ischemia by CT criteria. 2. There is no evidence of hemodynamically significant carotid artery stenosis in the neck noting advanced atherosclerotic calcification of the carotid bulbs. 3. There are foci of moderate stenosis identified within the right posterior cerebral artery and the right middle cerebral artery. These are similar to previous. 4. 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 5. No focal vessel cut off is seen throughout the intracranial circulation. ACT 112: Negative or not required by law. Electronically signed by: Donny Fernando M.D. 01/11/2021 5:04 PM Head CTA 01/11/21 16:[address] OF THE BRAIN; CT ANGIOGRAM OF THE BRAIN; CT ANGIOGRAM OF THE NECK CLINICAL HISTORY: Strokelike symptoms. COMPARISON STUDY: CT of the brain dated 09/11/2020. CT angiogram of the head and neck dated 12/03/2019. TECHNIQUE: Unenhanced axial CT scan of the brain is performed. Subsequently, following the IV administration of 120 of Optiray 320, CT angiogram of the head and neck was performed from the aortic arch to the vertex. Images are reviewed in the axial, sagittal, and coronal planes. 3-D MIPS images are created and assessed. IV contrast was administered without complication. All measurements were calculated based on NASCET criteria. A dose lowering technique was utilized adhering to the principles of ALARA. CT DOSE: 1556.14 mGy.cm FINDINGS: Brain parenchyma: There is age-related involutional change noting advanced subcortical and periventricular microangiopathic disease. There is no hemorrhage, mass effect, or evidence of acute territorial ischemia by CT criteria. There is no evidence of enhancing mass lesion on the angiogram phase images. The ventricles, sulci, and cisterns are prominent secondary to involutional change. Chronic lacunar infarcts are noted in the basal ganglia, the left sarabjit, and the thalami. Rose-white matter differentiation is preserved. No extra-axial fluid collection is seen. Thoracic aorta: There is atherosclerotic calcification of the thoracic aorta. Visualized portions of the thoracic aorta are normal in caliber. The aortic arch demonstrates standard 3-vessel anatomy. Right carotid arterial system: The right common carotid artery is widely patent, as are the right internal and external carotid arteries. Advanced atherosclerotic plaque is noted in the carotid bulb. Left carotid arterial system: The left common carotid artery is widely patent, as are the left internal and external carotid arteries. Advanced atherosclerotic plaque is seen in the carotid bulb. Vertebral arteries: The vertebral arteries are widely patent in the neck and codominant. Subclavian arteries: Atherosclerotic plaque causes less than 50% luminal na rrowing of the left subclavian artery below the thoracic outlet. The subclavian arteries are otherwise widely patent bilaterally. Intracranial vasculature: There is atherosclerotic calcification of the cavernous carotid and vertebral arteries. Atherosclerotic plaque and irr egularity seen throughout the intracranial vessels. There is a large right posterior communicating artery. The internal carotid arteries are patent at the skull base, as are the anterior and middle cerebral arteries bilaterally. There is focal moderate stenosis of the M3 segment of the right middle cerebral artery seen on image #164. The vertebrobasilar system and posterior cerebral arteries are patent. The vertebral arteries are codominant. Atherosclerotic plaque, irregularity, and mild stenoses are seen throughout the vertebral arteries. 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 There is moderate stenosis of the right posterior cerebral artery seen on image #137. No focal vessel cutoff is seen throughout the intracranial circulation. Jugular veins: Patent bilaterally. Dural sinuses: Patent. Upper chest: The patient is status post midline sternotomy. Partially visualized upper lobe lung parenchyma appears clear. Soft tissues: The visualized pharyngeal soft tissues are normal in appearance noting angiographic phase technique. The oropharyngeal airway appears widely patent. Low-attenuation thyroid nodules measure up to 1.8 cm. The salivary glands are normal in appearance. No cervical lymphadenopathy is seen. Skeletal structures: The calvarium appears intact. The cervical spine is maintained noting mild spondylotic change. No lytic or blastic lesion is seen. Orbits: The bony orbits are intact. Orbital contents are normal as visualized. Sinuses and mastoids: There is a 2 cm retention cyst in the right maxillary antrum. The remaining paranasal sinuses are clear. The mastoid air cells are well pneumatized. IMPRESSION: 1. There is no hemorrhage, mass effect, or evidence of acute territorial ischemia by CT criteria. 2. There is no evidence of hemodynamically significant carotid artery stenosis in the neck noting advanced atherosclerotic calcification of the carotid bulbs. 3. There are foci of moderate stenosis identified within the right posterior cerebral artery and the right middle cerebral artery. These are similar to pr evious. 4. 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 5. No focal vessel cut off is seen throughout the intracranial circulation. ACT 112: Negative or not required by law. Electronically signed by: Donny Fernando M.D. 01/11/2021 5:04 PM Neck CTA 01/11/21 16:[address] OF THE BRAIN; CT ANGIOGRAM OF THE BRAIN; CT ANGIOGRAM OF THE NECK CLINICAL HISTORY: Strokelike symptoms. COMPARISON STUDY: CT of the brain dated 09/11/2020. CT angiogram of the head and neck dated 12/03/2019. TECHNIQUE: Unenhanced axial CT scan of the brain is performed. Subsequently, following the IV administration of 120 of Optiray 320, CT angiogram of the head and neck was performed from the aortic arch to the vertex. Images are reviewed in the axial, sagittal, and coronal planes. 3-D MIPS images are created and assessed. IV contrast was administered without complication. All measurements were calculated based on NASCET criteria. A dose lowering technique was utilized adhering to the principles of ALARA. CT DOSE: 1556.14 mGy.cm FINDINGS: Brain parenchyma: There is age-related involutional change noting advanced subcortical and periventricular microangiopathic disease. There is no hemorrhage, mass effect, or evidence of acute territorial ischemia by CT criteria. There is no evidence of enhancing mass lesion on the angiogram phase images. The ventricles, sulci, and cisterns are prominent secondary to involutional change. Chronic lacunar infarcts are noted in the basal ganglia, the left sarabjit, and the thalami. Rose-white matter differentiation is preserved. No extra-axial fluid collection is seen. Thoracic aorta: There is atherosclerotic calcification of the thoracic aorta. Visualized portions of the thoracic aorta are normal in caliber. The aortic arch demonstrates standard 3-vessel anatomy. Right carotid arterial system: The right common carotid artery is widely patent, as are the right internal and external carotid arteries. Advanced atherosclerotic plaque is noted in the carotid bulb. Left carotid arterial system: The left common carotid artery is widely patent, as are the left internal and external carotid arteries. Advanced atherosclerotic plaque is seen in the carotid bulb. Vertebral arteries: The vertebral arteries are widely patent in the neck and codominant. Subclavian arteries: Atherosclerotic plaque causes less than 50% luminal narrowing of the left subclavian artery below the thoracic outlet. The subclavian arteries are otherwise widely patent bilaterally. Intracranial vasculature: There is atherosclerotic calcification of the cavernous carotid and vertebral arteries. Atherosclerotic plaque and irregularity seen throughout the intracranial vessels. There is a large right posterior communicating artery. The internal carotid arteries are patent at the skull base, as are the anterior and middle cerebral arteries bilaterally. There is focal moderate stenosis of the M3 segment of the right middle cerebral artery seen on image #164. The vertebrobasilar system and posterior cerebral arteries are patent. The vertebral arteries are codominant. Atherosclerotic plaque, irregularity, and mild stenoses are seen throughout the vertebral arteries. 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 There is moderate stenosis of the right posterior cerebral artery seen on image #137. No focal vessel cutoff is seen throughout the intracranial circulation. Jugular veins: Patent bilaterally. Dural sinuses: Patent. Upper chest: The patient is status post midline sternotomy. Partially visualized upper lobe lung parenchyma appears clear. Soft tissues: The visualized pharyngeal soft tissues are normal in appearance noting angiographic phase technique. The oropharyngeal airway appears widely patent. Low-attenuation thyroid nodules measure up to 1.8 cm. The salivary glands are normal in appearance. No cervical lymphadenopathy is seen. Skeletal structures: The calvarium appears intact. The cervical spine is maintained noting mild spondylotic change. No lytic or blastic lesion is seen. Orbits: The bony orbits are intact. Orbital contents are normal as visualized. Sinuses and mastoids: There is a 2 cm retention cyst in the right maxillary antrum. The remaining paranasal sinuses are clear. The mastoid air cells are well pneumatized. IMPRESSION: 1. There is no hemorrhage, mass effect, or evidence of acute territorial ischemia by CT criteria. 2. There is no evidence of hemodynamically significant carotid artery stenosis in the neck noting advanced atherosclerotic calcification of the carotid bulbs. 3. There are foci of moderate stenosis identified within the right posterior cerebral artery and the right middle cerebral artery. These are similar to previous. 4. 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 5. No focal vessel cut off is seen throughout the intracranial circulation. ACT 112: Negative or not required by law. Electronically signed by: Donny Fernando M.D. 01/11/2021 5:04 PM ECG Data Additional Comments: EKG shows sinus rhythm with a rate of 77. OR QRS and QTc intervals are within normal limits. There is T wave inversion in leads I and aVL as well as ST elevation in leads V1, V2 and V3 however when compared to the EKG done in September 2020 these changes are stable. No new changes. Computer is reading is an acute STEMI however again there are no new changes and no heart alert will be called. [facility] Narrative 1552: The patient was evaluated in room B3. A complete history and physical exam was performed Cardiac monitoring: An order was placed for continuous cardiac monitoring. The monitor shows a rate of 70 with sinus rhythm On arrival the patient's EKG shows sinus rhythm with a rate of 77. OR QRS and QTc intervals are within normal limits. There is T wave inversion in leads I an d aVL as well as ST elevation in leads V1, V2 and V3 however when compared to the EKG done in September 2020 these changes are stable. No new changes. Computer is reading is an acute STEMI however again there are no new changes and no heart alert will be called. Patient is presenting for altered mental status. Patient is unable to say if he is having chest pain or difficulty breathing. stated the patient's symptoms started acutely 3 hours ago. Stroke, seizure, intoxication, infectious source, metabolic source for his altered mental status are strongly considered. Patient is on Coumadin. [id number] INR is 3.1. Given that the patient is on Coumadin and has a therapeutic INR, no TPA would be recommended, and thus no stroke alert called. Patient's Accu-Chek on arrival was within normal limits. I-STAT showed that the patient had a stable creatinine. Patient will be taken to the CT scanner for CT of the head, CTA of the head, and CTA of the neck. 1740: Patient had some acute vomiting. Zofran 4 mg ordered for the patient. Patient's rectal temperature 37.7. Patient does have hypertension, blood pressure is elevated.Labs show normal white blood cell count, therapeutic INR of 2.6, VBG within normal limits, lactate is 2 troponin is negative urinalysis negative and magnesium is 1.4. Imaging shows no acute hemorrhage, mass-effect, or evidence of acute territorial ischemia. There is moderate stenosis in the right posterior cerebral artery and right middle cerebral artery which are similar to previous CTAs compared in November 2019. 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 Chest x-ray shows no acute infiltrate. The patient's INR is therapeutic. Patient is not a TPA candidate due to this. I did discuss the case with Dr. Danish Santiago teleneurology who agrees the patient is not a TPA candidate and that there would be little utilization to reverse the patient's Coumadin/INR level with vitamin K and then push TPA. Patient will be admitted to the [facility] team for further work-up of his altered mental status. Is thought at this time that his altered mental status could either be due to stroke or seizure. Patient does not have a fever greater than 100.4 and has full range of motion of his neck it is not thought that the patient is suffering from meningitis or encephalitis given the acute onset of his symptoms, fever less than 100.4, normal white blood cell count, and normal lactic acid level. Discussed the case with Rosina Maldonado PA-C who stated to admit to Dr. Santana. Aspirin rectally is ordered for the patient. Magnesium replacement started in the emergency department. Impression & Plan Altered mental status, Hypomagnesemia Discharge Plan Visit Data Chief Complaint: Altered Mental Status Stated Complaint: CONFUSION ED Provider: Neil Dahl Discharge Problem: Altered mental status, Hypomagnesemia Patient Disposition: Admitted As Inpatient Forms Stand Alone Forms: [facility] Prescriptions Prescriptions: No Action nitroglycerin 0.4 mg tablet, sublingual 0.4 mg sublingual DIRECTED PRN (Reason: Chest Pain) RF: 0 insulin aspart U-100 [Novolog U-100 Insulin aspart] 100 unit/mL solution 9 unit subcut .AC LUNCH & SUPPER RF: 0 tamsulosin 0.4 mg capsule 0.4 mg PO DAILY RF: 0 insulin aspart U-100 [Novolog U-100 Insulin aspart] 100 unit/mL solution 10 unit SUBCUT QAM RF: 0 metformin 1,000 mg tablet 500 mg PO BID RF: 0 warfarin 5 mg tablet 7.5 mg PO TUTHSA RF: 0 warfarin 5 mg tablet 5 mg PO .MOWEFRSU RF: 0 atorvastatin [Lipitor] 80 mg tablet 80 mg PO HS Qty: 30 RF: 0 carvedilol 12.5 mg tablet 12.5 mg PO BID Qty: 60 RF: 0 Lantus U-100 Insulin 100 unit/mL solution See Rx Instructions .ROUTE .COMPLEX Qty: 10 RF: 0 clopidogrel [Plavix] 75 mg tablet 75 mg PO QAM Qty: 30 RF: 0 amlodipine [Norvasc] 5 mg tablet 5 mg PO QAM Qty: 30 RF: 0 aspirin 81 mg Tablet,Delayed Release (Dr/Ec) 81 mg PO QAM Qty: 30 RF: 0 lisinopril 30 mg tablet 30 mg PO DAILY Qty: 30 RF: 0 ondansetron 4 mg tablet,disintegrating 4 mg PO Q4H PRN (Reason: Nausea) Qty: 10 RF: 0 baclofen 5 mg tablet 5 mg PO QAM Qty: 30 RF: 0 Referrals Referrals: Dereck Zaman DO [Primary Care Provider] -
--- NOTE | 2021-01-11 17:05 | CT Scan Report ---
UNENHANCED CT OF THE BRAIN; CT ANGIOGRAM OF THE BRAIN; CT ANGIOGRAM OF THE NECK CLINICAL HISTORY: Strokelike symptoms. COMPARISON STUDY: CT of the brain dated 09/11/2020. CT angiogram of the head and neck dated 12/03/2019. TECHNIQUE: Unenhanced axial CT scan of the brain is performed. Subsequently, following the IV adminis tration of 120 of [address] 320, CT angiogram of the head and neck was performed from the aortic arch t o the vertex. Images are reviewed in the axial, sagittal, and coronal planes. 3-D MIPS images are cre ated and assessed. IV contrast was administered without complication. All measurements were calculate d based on NASCET criteria. A dose lowering technique was utilized adhering to the principles of ALA RA. CT DOSE: 1556.14 mGy.cm FINDINGS: Brain parenchyma: There is age-related involutional change noting advanced subcortical and periventri cular microangiopathic disease. There is no hemorrhage, mass effect, or evidence of acute territorial ischemia by CT criteria. There is no evidence of enhancing mass lesion on the angiogram phase images . The ventricles, sulci, and cisterns are prominent secondary to involutional change. Chronic lacunar infarcts are noted in the basal ganglia, the left asrabjit, and the thalami. Rose-white matter different iation is preserved. No extra-axial fluid collection is seen. Thoracic aorta: There is atherosclerotic calcification of the thoracic aorta. Visualized portions of the thoracic aorta are normal in caliber. The aortic arch demonstrates standard 3-vessel anatomy. Right carotid arterial system: The right common carotid artery is widely patent, as are the right int ernal and external carotid arteries. Advanced atherosclerotic plaque is noted in the carotid bulb. Left carotid arterial system: The left common carotid artery is widely patent, as are the left employee communications intern al and external carotid arteries. Advanced atherosclerotic plaque is seen in the carotid bulb. Vertebral arteries: The vertebral arteries are widely patent in the neck and codominant. Subclavian arteries: Atherosclerotic plaque causes less than 50% luminal narrowing of the left subcla vian artery below the thoracic outlet. The subclavian arteries are otherwise widely patent bilaterall y. Intracranial vasculature: There is atherosclerotic calcification of the cavernous carotid and vertebr al arteries. Atherosclerotic plaque and irregularity seen throughout the intracranial vessels. There is a large right posterior communicating artery. The internal carotid arteries are patent at the skul l base, as are the anterior and middle cerebral arteries bilaterally. There is focal moderate stenosi s of the M3 segment of the right middle cerebral artery seen on image #164. The vertebrobasilar syste m and posterior cerebral arteries are patent. The vertebral arteries are codominant. Atherosclerotic plaque, irregularity, and mild stenoses are seen throughout the vertebral arteries. There is a 3 mm a neurysm arising from the midportion of the basilar artery on image #123. There is moderate stenosis o f the right posterior cerebral artery seen on image #137. No focal vessel cutoff is seen throughout t he intracranial circulation. Jugular veins: Patent bilaterally. Dural sinuses: Patent. Upper chest: The patient is status post midline sternotomy. Partially visualized upper lobe lung pare nchyma appears clear. Soft tissues: The visualized pharyngeal soft tissues are normal in appearance noting angiographic pha se technique. The oropharyngeal airway appears widely patent. Low-attenuation thyroid nodules measure up to 1.8 cm. The salivary glands are normal in appearance. No cervical lymphadenopathy is seen. Skeletal structures: The calvarium appears intact. The cervical spine is maintained noting mild spond ylotic change. No lytic or blastic lesion is seen. Orbits: The bony orbits are intact. Orbital contents are normal as visualized. Sinuses and mastoids: There is a 2 cm retention cyst in the right maxillary antrum. The remaining par anasal sinuses are clear. The mastoid air cells are well pneumatized. IMPRESSION: 1. There is no hemorrhage, mass effect, or evidence of acute territorial ischemia by CT criteria. 2. There is no evidence of hemodynamically significant carotid artery stenosis in the neck noting adv anced atherosclerotic calcification of the carotid bulbs. 3. There are foci of moderate stenosis identified within the right posterior cerebral artery and the right middle cerebral artery. These are similar to previous. 4. 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 5. No focal vessel cut off is seen throughout the intracranial circulation. ACT 112: Negative or not required by law. Electronically signed by: Donny Fernando M.D. 01/11/2021 5:04 PM
[2021-01-11 17:21] LABS: Appearance Urine Clear (Clear); Bilirubin Urine Negative (Negative); Blood Urine Negative (Negative); Color Urine Yellow; Glucose Urine UA Trace (Negative); Ketones Urine Trace (Negative); Leukocyte Esterase Urine Negative (Negative); Nitrite Urine Negative (Negative); Protein Urine Negative (Negative); Specific Gravity Urine 1.037 (1.000-1.030); Urobilinogen Urine Negative (Negative)
[2021-01-11] MEDS ORDERED: ASPIRIN 300 MG SUPP PR ONE (17:23)
--- NOTE | 2021-01-11 17:32 | XRay Report ---
SINGLE VIEW CHEST CLINICAL HISTORY: Generalized weakness. FINDINGS: An AP, portable, upright chest radiograph is compared to study dated 09/11/2020. Correlation is made with chest CT dated 11/17/2017. The patient is status post midline sternotomy. The heart is mi ldly enlarged noting atherosclerotic calcification of the thoracic aorta. The pulmonary vasculature i s noncongested. There is mild bibasilar atelectasis. No airspace consolidation or pleural effusion is identified. No pneumothorax is seen. The skeletal structures appear osteopenic. The bony thorax is g rossly intact. IMPRESSION: Cardiomegaly with no acute cardiopulmonary abnormality. ACT 112: Negative or not required by law. Electronically signed by: Donny Fernando M.D. 01/11/2021 5:30 PM
--- NOTE | 2021-01-11 17:44 | History & Physical Report ---
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 Confusion, repetitive speech since this afternoon, disoriented No new weakness. 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 Not a tpa candidate with INR of 3 Taking aspirin, plavix and coumadin CT head, CTA head/neck with chronic changes but no acute intracranial changes MRI brain w/wo, echo with bubble study PT/OT/speech evaluations, failed dysphagia screen Routine neurology consult (3) Fever: Plan: Low grade fever of 37.7 C Recent dental infection, completed course of cefdinir No evidence of opacity on PNA, UA unremarkable Blood cultures ordered (4) Hypomagnesemia: Plan: Mg 1.3 - replacing (5) HTN (hypertension): Plan: Allow for permissive HTN in setting of possible ischemic event (6) Type 2 diabetes mellitus: Plan: A1c 7.3 in September 2020, repeat pending Hold home agents Basal/bolus insulin while in-patient BSG AC HS (7) CAD (coronary artery disease): Plan: History of CABG x 3. Significant vascular disease including carotid artery stenosis, SMA stenosis, PAD Continue ASA, statin, Plavix. Holding Coreg and lisinopril for now (8) Aortic valve stenosis: Plan: Echo 10/2019, EF 65 to 69%: aortic valve severely calcified, borderline severe aortic valve stenosis, grade 1 diastolic dysfxn Monitor volume status closely DVT Ppx: Coumadin Code status: FULL PCP: Junie Dispo: Admitted to [facility]. Discharge planning ordered Patient seen in collaboration with Dr. Santana. Please see addendum. 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 Seemed confused following lunch today at 1:30pm. Seemed confused and was repeating "yes," "okay", "alright" in response to every question, per , which is not his baseline. Thought he may be hypoglycemic and checked BSG which was elevated. Has residual R hemiparesis and dysphasia from previous stroke. Is on aspirin, plavix and coumadin. Brought into ED for further evaluation. Unable to obtain ROS due to confusion. Recently completed cefdinir course for dental infection. Allergies Allergy/AdvReac Type Severity Reaction Status Date / Time No Known Allergies Allergy Verified 01/11/21 17:11 Home Medications Medication Instructions Recorded Confirmed Type nitroglycerin 0.4 mg sublingual 0.4 mg SUBLINGUAL DIRECTED PRN 08/09/19 01/11/21 History tablet amlodipine 5 mg tablet (Norvasc) 5 mg PO QAM #30 tab 09/22/20 01/11/21 Rx aspirin 81 mg tablet,delayed 81 mg PO QAM #30 tab 09/22/20 01/11/21 Rx release atorvastatin 80 mg tablet (Lipitor) 80 mg PO HS #30 tab 09/22/20 01/11/21 Rx baclofen 5 mg tablet 5 mg PO QAM #30 tab 09/22/20 01/11/21 Rx carvedilol 12.5 mg tablet 12.5 mg PO BID #60 tab 09/22/20 01/11/21 Rx clopidogrel 75 mg tablet (Plavix) 75 mg PO QAM #30 tab 09/22/20 01/11/21 Rx insulin glargine 100 unit/mL See Rx Instructions .ROUTE 09/22/20 01/11/21 Rx subcutaneous solution (Lantus .COMPLEX #10 ml U-100 Insulin) lisinopril 30 mg tablet 30 mg PO DAILY #30 tab 09/22/20 01/11/21 Rx ondansetron 4 mg disintegrating 4 mg PO Q4H PRN #10 tab 09/22/20 01/11/21 Rx tablet insulin aspart U-100 100 unit/mL 9 unit SUBCUT .AC LUNCH & SUPPER 01/11/21 01/11/21 History subcutaneous solution (Novolog U-100 Insulin aspart) insulin aspart U-100 100 unit/mL 10 unit SUBCUT QAM 01/11/21 01/11/21 History subcutaneous solution (Novolog U-100 Insulin aspart) metformin 1,000 mg tablet 500 mg PO BID 01/11/21 01/11/21 History tamsulosin 0.4 mg capsule 0.4 mg PO DAILY 01/11/21 01/11/21 History warfarin 5 mg tablet 5 mg PO .MOWEFRSU 01/11/21 01/11/21 History warfarin 5 mg tablet 7.5 mg PO TUTHSA 01/11/21 01/11/21 History Past Med/Surg History Medical History (Updated 01/11/21 @ 19:03 by Rosina Sauceda PA-C) 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" Aortic valve stenosis BPH with obstruction/lower urinary tract symptoms CAD (coronary artery disease) Carotid stenosis Diabetic peripheral neuropathy associated with type 2 diabetes mellitus Dyslipidemia Hemiplegia affecting right dominant side History of CVA (cerebrovascular accident) History of pancreatitis HTN (hypertension) Hypomagnesemia Monoplegia affecting right dominant side Obesity Osteomyelitis of [place] of right foot Proliferative diabetic retinopathy Retinal edema Right foot drop Status post cerebrovascular accident Status post myocardial infarction Superior mesenteric artery stenosis Type 2 diabetes mellitus Surgical History Hx of vitrectomy S/P angioplasty with stent S/P CABG x 3 S/P PTCA (percutaneous transluminal coronary angioplasty) Family History Father Heart disease Social History Smoking Status: Former smoker Tobacco Type: Cigarettes Second Hand Exposure: No; Hx Alcohol Use: Yes Alcohol type: beer Hx Substance Use: No Preferred Language: Bengali Communication Ability: Effective Visual Impairment: No Limitations Hearing Ability: Normal Remote Mortgage Underwriter Required: No Beliefs That Will Affect Care: None and Anglican marital status: Current Living Situation: Spouse Current Living Situation Comment: own home current occupational status: disabled Feels Safe at Home: Yes Assistive Devices: Brace/Splint/Immobilizer and Glasses Review of Systems Review of Systems: Unobtainable due to cognitive status Physical Exam Physical Exam: PLease see Dr. Santana's addendum for physical exam. Results & Data Results & Data ([facility]) Vital Signs (Past 12 Hours) Vital Signs Temp Pulse Resp BP BP Pulse Ox 01/11/21 17:10 68 16 180/78 H 100 01/11/21 16:21 37.7 C H 74 17 144/79 H 100 01/11/21 15:54 37.8 C H 18 144/79 H 100 01/11/21 15:49 75 13 144/79 H 99 Laboratory Results Short CBC 01/11/21 Range/Units 16:12 WBC 7.15 (4.8-10.8) K/uL Hgb 13.9 L (14.0-18.0) g/dL Hct 41.9 L (42-52) % Plt Count 231 (130-400) K/uL BMP 01/11/21 16:12 Sodium 141 Potassium 3.8 Chloride 106 Carbon Dioxide 27 BUN 15 Creatinine 0.69 Glucose 127 H Calcium 8.8 Cardiac Enzymes 01/11/21 Range/Units 16:12 Troponin I < 0.015 (0-0.045) ng/ml Liver Function 01/11/21 Range/Units 16:12 Total Bilirubin 0.4 (0.2-1) mg/dl AST 12 L (15-37) U/L ALT 27 (12-78) U/L Alkaline Phosphatase 79 (45-117) U/L Albumin 3.2 L (3.4-5.0) gm/dl Urine 01/11/21 Range/Units 17:12 Urine Color Yellow Urine Appearance Clear (Clear) Urine pH 7.0 (4.5-7.5) Ur Specific [place] 1.037 H (1.000-1.030) Urine Protein Negative (Negative) Urine Glucose (UA) Trace H (Negative) Diagnostic Findings Chest X-Ray 01/11/21 16:00 SINGLE VIEW CHEST CLINICAL HISTORY: Generalized weakness. FINDINGS: An AP, portable, upright chest radiograph is compared to study dated 09/11/2020. Correlation is made with chest CT dated 11/17/2017. The patient is status post midline sternotomy. The heart is mildly enlarged noting atherosclerotic calcification of the thoracic aorta. The pulmonary vasculature is noncongested. There is mild bibasilar atelectasis. No airspace consolidation or pleural effusion is identified. No pneumothorax is seen. The skeletal structures appear osteopenic. The bony thorax is grossly intact. IMPRESSION: Cardiomegaly with no acute cardiopulmonary abnormality. ACT 112: Negative or not required by law. Electronically signed by: Donny Fernando M.D. 01/11/2021 5:[address] 01/11/21 16:[address] OF THE BRAIN; CT ANGIOGRAM OF THE BRAIN; CT ANGIOGRAM OF THE NECK CLINICAL HISTORY: Strokelike symptoms. COMPARISON STUDY: CT of the brain dated 09/11/2020. CT angiogram of the head and neck dated 12/03/2019. TECHNIQUE: Unenhanced axial CT scan of the brain is performed. Subsequently, following the IV administration of 120 of Optiray 320, CT angiogram of the head and neck was performed from the aortic arch to the vertex. Images are reviewed in the axial, sagittal, and coronal planes. 3-D MIPS images are created and assessed. IV contrast was administered without complication. All measurements were calculated based on NASCET criteria. A dose lowering technique was utilized adhering to the principles of ALARA. CT DOSE: 1556.14 mGy.cm FINDINGS: Brain parenchyma: There is age-related involutional change noting advanced subcortical and periventricular microangiopathic disease. There is no hemorrhage, mass effect, or evidence of acute territorial ischemia by CT criteria. There is no evidence of enhancing mass lesion on the angiogram phase images. The ventricles, sulci, and cisterns are prominent secondary to involutional change. Chronic lacunar infarcts are noted in the basal ganglia, the left sarabjit, and the thalami. Rose-white matter differentiation is preserved. No extra-axial fluid collection is seen. Thoracic aorta: There is atherosclerotic calcification of the thoracic aorta. Visualized portions of the thoracic aorta are normal in caliber. The aortic arch demonstrates standard 3-vessel anatomy. Right carotid arterial system: The right common carotid artery is widely patent, as are the right internal and external carotid arteries. Advanced atherosclerotic plaque is noted in the carotid bulb. Left carotid arterial system: The left common carotid artery is widely patent, as are the left internal and external carotid arteries. Advanced atherosclerotic plaque is seen in the carotid bulb. Vertebral arteries: The vertebral arteries are widely patent in the neck and codominant. Subclavian arteries: Atherosclerotic plaque causes less than 50% luminal narrowing of the left subclavian artery below the thoracic outlet. The subclavian arteries are otherwise widely patent bilaterally. Intracranial vasculature: There is atherosclerotic calcification of the cavernous carotid and vertebral arteries. Atherosclerotic plaque and irregularity seen throughout the intracranial vessels. There is a large right posterior communicating artery. The internal carotid arteries are patent at the skull base, as are the anterior and middle cerebral arteries bilaterally. There is focal moderate stenosis of the M3 segment of the right middle cerebral artery seen on image #164. The vertebrobasilar system and posterior cerebral arteries are patent. The vertebral arteries are codominant. Atherosclerotic plaque, irregularity, and mild stenoses are seen throughout the vertebral arteries. 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 There is moderate stenosis of the right posterior cerebral artery seen on image #137. No focal vessel cutoff is seen throughout the intracranial circulation. Jugular veins: Patent bilaterally. Dural sinuses: Patent. Upper chest: The patient is status post midline sternotomy. Partially visualized upper lobe lung parenchyma appears clear. Soft tissues: The visualized pharyngeal soft tissues are normal in appearance noting angiographic phase technique. The oropharyngeal airway appears widely patent. Low-attenuation thyroid nodules measure up to 1.8 cm. The salivary glands are normal in appearance. No cervical lymphadenopathy is seen. Skeletal structures: The calvarium appears intact. The cervical spine is maintained noting mild spondylotic change. No lytic or blastic lesion is seen. Orbits: The bony orbits are intact. Orbital contents are normal as visualized. Sinuses and mastoids: There is a 2 cm retention cyst in the right maxillary antrum. The remaining paranasal sinuses are clear. The mastoid air cells are well pneumatized. IMPRESSION: 1. There is no hemorrhage, mass effect, or evidence of acute territorial ischemia by CT criteria. 2. There is no evidence of hemodynamically significant carotid artery stenosis in the neck noting advanced atherosclerotic calcification of the carotid bulbs. 3. There are foci of moderate stenosis identified within the right posterior cerebral artery and the right middle cerebral artery. These are similar to previous. 4. 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 5. No focal vessel cut off is seen throughout the intracranial circulation. ACT 112: Negative or not required by law. Electronically signed by: Donny Fernando M.D. 01/11/2021 5:04 PM Head CTA 01/11/21 16:[address] OF THE BRAIN; CT ANGIOGRAM OF THE BRAIN; CT ANGIOGRAM OF THE NECK CLINICAL HISTORY: Strokelike symptoms. COMPARISON STUDY: CT of the brain dated 09/11/2020. CT angiogram of the head and neck dated 12/03/2019. TECHNIQUE: Unenhanced axial CT scan of the brain is performed. Subsequently, following the IV administration of 120 of Optiray 320, CT angiogram of the head and neck was performed from the aortic arch to the vertex. Images are reviewed in the axial, sagittal, and coronal planes. 3-D MIPS images are created and assessed. IV contrast was administered without complication. All measurements were calculated based on NASCET criteria. A dose lowering technique was utilized adhering to the principles of ALARA. CT DOSE: 1556.14 mGy.cm FINDINGS: Brain parenchyma: There is age-related involutional change noting advanced subcortical and periventricular microangiopathic disease. There is no hemorrhage, mass effect, or evidence of acute territorial ischemia by CT criteria. There is no evidence of enhancing mass lesion on the angiogram phase images. The ventricles, sulci, and cisterns are prominent secondary to involutional change. Chronic lacunar infarcts are noted in the basal ganglia, the left sarabjit, and the thalami. Rose-white matter differentiation is preserved. No extra-axial fluid collection is seen. Thoracic aorta: There is atherosclerotic calcification of the thoracic aorta. Visualized portions of the thoracic aorta are normal in caliber. The aortic arch demonstrates standard 3-vessel anatomy. Right carotid arterial system: The right common carotid artery is widely patent, as are the right internal and external carotid arteries. Advanced atherosclerotic plaque is noted in the carotid bulb. Left carotid arterial system: The left common carotid artery is widely patent, as are the left internal and external carotid arteries. Advanced atherosclerotic plaque is seen in the carotid bulb. Vertebral arteries: The vertebral arteries are widely patent in the neck and codominant. Subclavian arteries: Atherosclerotic plaque causes less than 50% luminal narrowing of the left subclavian artery below the thoracic outlet. The s ubclavian arteries are otherwise widely patent bilaterally. Intracranial vasculature: There is atherosclerotic calcification of the cavernous carotid and vertebral arteries. Atherosclerotic plaque and irregularity seen throughout the intracranial vessels. There is a large right posterior communicating artery. The internal carotid arteries are patent at the skull base, as are the anterior and middle cerebral arteries bilaterally. There is focal moderate stenosis of the M3 segment of the right middle cerebral artery seen on image #164. The vertebrobasilar system and posterior cerebral arteries are patent. The vertebral arteries are codominant. Atherosclerotic plaque, irregularity, and mild stenoses are seen throughout the vertebral arteries. 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 There is moderate stenosis of the right posterior cerebral artery seen on image #137. No focal vessel cutoff is seen throughout the intracranial circulation. Jugular veins: Patent bilaterally. Dural sinuses: Patent. Upper chest: The patient is status post midline sternotomy. Partially visualized upper lobe lung parenchyma appears clear. Soft tissues: The visualized pharyngeal soft tissues are normal in appearance noting angiographic phase technique. The oropharyngeal airway appears widely patent. Low-attenuation thyroid nodules measure up to 1.8 cm. The salivary glands are normal in appearance. No cervical lymphadenopathy is seen. Skeletal structures: The calvarium appears intact. The cervical spine is maintained noting mild spondylotic change. No lytic or blastic lesion is seen. Orbits: The bony orbits are intact. Orbital contents are normal as visualized. Sinuses and mastoids: There is a 2 cm retention cyst in the right maxillary antrum. The remaining paranasal sinuses are clear. The mastoid air cells are well pneumatized. IMPRESSION: 1. There is no hemorrhage, mass effect, or evidence of acute territorial ischemia by CT criteria. 2. There is no evidence of hemodynamically significant carotid artery stenosis in the neck noting advanced atherosclerotic calcification of the carotid bulbs. 3. There are foci of moderate stenosis identified within the right posterior cerebral artery and the right middle cerebral artery. These are similar to previous. 4. 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 5. No focal vessel cut off is seen throughout the intracranial circulation. ACT 112: Negative or not required by law. Electronically signed by: Donny Fernando M.D. 01/11/2021 5:04 PM Neck CTA 01/11/21 16:[address] OF THE BRAIN; CT ANGIOGRAM OF THE BRAIN; CT ANGIOGRAM OF THE NECK CLINICAL HISTORY: Strokelike symptoms. COMPARISON STUDY: CT of the brain dated 09/11/2020. CT angiogram of the head and neck dated 12/03/2019. TECHNIQUE: Unenhanced axial CT scan of the brain is performed. Subsequently, following the IV administration of 120 of Optiray 320, CT angiogram of the head and neck was performed from the aortic arch to the vertex. Images are reviewed in the axial, sagittal, and coronal planes. 3-D MIPS images are created and assessed. IV contrast was administered without complication. All measurements were calculated based on NASCET criteria. A dose lowering technique was utilized adhering to the principles of ALARA. CT DOSE: 1556.14 mGy.cm FINDINGS: Brain parenchyma: There is age-related involutional change noting advanced subcortical and periventricular microangiopathic disease. There is no hemorrhage, mass effect, or evidence of acute territorial ischemia by CT criteria. There is no evidence of enhancing mass lesion on the angiogram phase images. The ventricles, sulci, and cisterns are prominent secondary to involutional change. Chronic lacunar infarcts are noted in the basal ganglia, the left sarabjit, and the thalami. Rose-white matter differentiation is preserved. No extra-axial fluid collection is seen. Thoracic aorta: There is atherosclerotic calcification of the thoracic aorta. Visualized portions of the thoracic aorta are normal in caliber. The aortic arch demonstrates standard 3-vessel anatomy. Right carotid arterial system: The right common carotid artery is widely patent, as are the right internal and external carotid arteries. Advanced atherosclerotic plaque is noted in the carotid bulb. Left carotid arterial system: The left common carotid artery is widely patent, as are the left internal and external carotid arteries. Advanced atherosclerotic plaque is seen in the carotid bulb. Vertebral arteries: The vertebral arteries are widely patent in the neck and codominant. Subclavian arteries: Atherosclerotic plaque causes less than 50% luminal narrowing of the left subclavian artery below the thoracic outlet. The subclavian arteries are otherwise widely patent bilaterally. Intracranial vasculature: There is atherosclerotic calcification of the cavernous carotid and vertebral arteries. Atherosclerotic plaque and irregularity seen throughout the intracranial vessels. There is a large right posterior communicating artery. The internal carotid arteries are patent at the skull base, as are the anterior and middle cerebral arteries bilaterally. There is focal moderate stenosis of the M3 segment of the right middle cerebral artery seen on image #164. The vertebrobasilar system and posterior cerebral arteries are patent. The vertebral arteries are codominant. Atherosclerotic plaque, irregularity, and mild stenoses are seen throughout the vertebral arteries. 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 There is moderate stenosis of the right posterior cerebral artery seen on image #137. No focal vessel cutoff is seen throughout the intracranial circulation. Jugular veins: Patent bilaterally. Dural sinuses: Patent. Upper chest: The patient is status post midline sternotomy. Partially visualized upper lobe lung parenchyma appears clear. Soft tissues: The visualized pharyngeal soft tissues are normal in appearance noting angiographic phase technique. The oropharyngeal airway appears widely patent. Low-attenuation thyroid nodules measure up to 1.8 cm. The salivary glands are normal in appearance. No cervical lymphadenopathy is seen. Skeletal structures: The calvarium appears intact. The cervical spine is maintained noting mild spondylotic change. No lytic or blastic lesion is seen. Orbits: The bony orbits are intact. Orbital contents are normal as visualized. Sinuses and mastoids: There is a 2 cm retention cyst in the right maxillary antrum. The remaining paranasal sinuses are clear. The mastoid air cells are well pneumatized. IMPRESSION: 1. There is no hemorrhage, mass effect, or evidence of acute territorial ischemia by CT criteria. 2. There is no evidence of hemodynamically significant carotid artery stenosis in the neck noting advanced atherosclerotic calcification of the carotid bulbs. 3. There are foci of moderate stenosis identified within the right posterior cerebral artery and the right middle cerebral artery. These are similar to previous. 4. 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 5. No focal vessel cut off is seen throughout the intracranial circulation. ACT 112: Negative or not required by law. Electronically signed by: Donny Fernando M.D. 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 On examination: GENERAL: AO x0, confused, replies yes and okay to every question, no facial symmetry or slurring of speech. Unable to cooperate. On RA. HEENT: No pallor, no icterus. Pupils equal, round and reactive to light. Oral mucosa moist. NECK: No JVD, no neck masses. HEART: S1 and S2 heard. Regular rate and rhythm. No murmur, no gallop. RESPIRATORY SYSTEM: Normal AP diameter. No accessory muscle use. No wheezing, no crackles. ABDOMEN: Soft, bowel sounds present, no distention. CENTRAL NERVOUS SYSTEM: No facial droop. Right-sided paresis noted. Moved extremities on the left side during the bedside examination but could not assess strength/sensation. EXTREMITIES: No edema, no erythema seen. Had compression stockings on. Had foot support on the right side for foot drop. His labs showed INR of 3.1, lactic acid 2.0, magnesium 1.3 [replaced], troponin x1 -, U tox negative, CXR showing cardiomegaly but no acute findings, CT head/CTA head/CTA neck showing no hemorrhage or mass-effect and redemonstration of basilar aneurysm 3 mm. Is taking his Coumadin, aspirin, Plavix at home. Will resume aspirin and plavix. Leave warfarin decision to AM staff in conjuction with Neurology. EKG at presentation stable compared to the past EKG. Magnesium repleted, follow-up in the morning. Given his extensive vascular disease and history of stroke in the past, concern of TIA versus stroke remains. Will get MRI and neurology on board. Allow permissive hypertension to maintain SBP between 165 to 180 mmHg. Use IV antihypertensive as needed. Patient failed swallow test, keep n.p.o., will put on very gentle hydration for concerns of borderline to severe aortic stenosis in November 2019 echo. Needs repeat echo as a part of stroke work-up. I have seen and examined the patient and have discussed the case with the provider above. I agree with the assessment and plan as stated. (1) Fever Fever type: unspecified Qualified Code(s): R50.9 - Fever, unspecified
[2021-01-11 17:47] LABS: Amphetamines+Metham, Urine Neg (Neg); Barbiturates, Urine Neg (Neg); Benzodiazepine, Urine Neg (Neg); Cocaine, Urine Neg (Neg); MDMA (Ecstacy), Urine Neg (Neg); Methadone, Urine Neg (Neg); Opiate, Urine Neg (Neg); Phencyclidine, Urine Neg (Neg)
[2021-01-11] MEDS: MAGNESIUM SULFATE / D5W 1 GM/100 ML BAG IV SCH ×2 (17:53→19:10)
[2021-01-11] MEDS ORDERED: GLUCAGON FOR INJ 1 MG VIAL SQ PRN (18:58)
[2021-01-11] MEDS ORDERED: CARBOHYDRATES FOR HYPOGLYCEMIA PO PRN (18:58)
[2021-01-11] MEDS ORDERED: DEXTROSE 50% 50 ML SYRINGE IV PRN (18:58)
[2021-01-11] MEDS ORDERED: GLUCOSE 10 TABS/TUBE PO PRN (18:58)
[2021-01-11] MEDS ORDERED: GLUCOSE 40% GEL 15 GM TUBE PO PRN (18:58)
[2021-01-11] MEDS ORDERED: ACETAMINOPHEN 1,000 MG/100 ML VIAL IV PRN (19:49)
[2021-01-11] MEDS ORDERED: ACETAMINOPHEN 1,000 MG/100 ML VIAL IV STA (19:49)
[2021-01-11] MEDS ORDERED: SODIUM CHLORIDE 0.9% 500 ML IV SCH (21:15)
[2021-01-11] MEDS ORDERED: ONDANSETRON INJ 2 MG/ML 2 ML VIAL IV PRN (21:20)
[2021-01-11] MEDS ORDERED: PHARMACIST DISCHARGE MED REC CONSULT PRN (21:20)
[2021-01-11] MEDS ORDERED: WARFARIN SOD 5 MG TAB PO SCH (21:20)
[2021-01-11] MEDS ORDERED: POLYETHYLENE (MIRALAX) 17 GM PACK PO PRN (21:20)
[2021-01-11] MEDS ORDERED: LABETALOL HCL IV 5 MG/ML 20ML IV PRN (21:21)
[2021-01-11] MEDS ORDERED: hydrALAZINE HCL 20 MG/ML VIAL IV PRN (21:21)
[2021-01-11] MEDS ORDERED: INSULIN ASPART 100 UNITS/ML 3 ML PEN SC SCH (22:00)
[2021-01-11] MEDS: ATORVASTATIN 40 MG TAB PO SCH (22:25)
[2021-01-11] MEDS ORDERED: Nursing to Pharmacy Communication SCH (22:30)
[2021-01-11] MEDS: INSULIN GLARGINE SOLOSTAR 100 UNITS/ML 3 ML PEN SC SCH (23:01)
[2021-01-11] MEDS: INSULIN ASPART 100 UNITS/ML 3 ML PEN SC SCH (23:51)
[2021-01-12] MEDS ORDERED: GADOBUTROL 10ML VIAL IV ONE (00:04)
[2021-01-12] MEDS: INSULIN ASPART 100 UNITS/ML 3 ML PEN SC SCH ×3 (06:10→21:09)
[2021-01-12] MEDS: BACLOFEN 10 MG TAB PO SCH (07:23)
[2021-01-12] MEDS: CLOPIDOGREL BISULFATE 75 MG TAB PO SCH (07:24)
[2021-01-12] MEDS: ASPIRIN 81 MG ECTAB PO SCH (07:24)
[2021-01-12] MEDS: TAMSULOSIN HCL 0.4 MG CAP PO SCH (07:24)
[2021-01-12] MEDS: INSULIN GLARGINE SOLOSTAR 100 UNITS/ML 3 ML PEN SC SCH ×2 (07:29→21:09)
[2021-01-12 08:30] LABS: Hematocrit (blood only) 38.2 % (42-52); Hemoglobin 12.4 g/dL (14.0-18.0); Mean Corpuscular Hemoglobin 25.6 pg (25-34); Mean Corpuscular Hgb Conc 32.5 g/dL (32-36); Mean Corpuscular Volume 78.8 fL (80-100); Mean Platelet Volume 10.2 fL (7.4-10.4); Platelet Count 218 K/uL (130-400); RDW Coefficient of Variation 15.3 % (11.5-14.5); RDW Standard Deviation 44.2 fL (36.4-46.3); Red Blood Count 4.85 M/uL (4.7-6.1)
[2021-01-12 09:01] LABS: Calcium 8.7 mg/dl (8.5-10.1); Creatinine Clr Calc Pharmacy 138.3 ml/min; Est GFR (African American) 124.9 ml/min; Est GFR (Non-African American) 107.8 ml/min; Potassium 3.9 mmol/L (3.5-5.1)
--- NOTE | 2021-01-12 09:16 | Neurology Consultation ---
Date of Consultation January 12, 2021 Assessment & Plan (1) History of CVA (cerebrovascular accident): 1. continue aspirin 81 mg, plavix 75 mg and Coumadin to therapeutic INR 2. MRI brain -no acute findings 3. optimize HTN, HLD, DM LDL <70 4. CTA head neck- no acute findings- 3 mm ANR - follow up out patient 5. PT/OT for discharge needs 6. follow up with neurology 4-6 weeks or sooner if needed 7. may repeat MRI brain for late finding of stroke (2) Acute confusion: 1. EEG - normal during wakefulness Supervising Physician Co-Signing Physician Notes I have seen and discussed above patient with Dr Garrick Ansari, neurology I know Deja from prior evaluation has been and not seen him for some time now and today he appears to recognize me makes eye contact but is again uttering short words to answer questions such as okay I am he has now and does not really engage in a lot of long conversation but he does have a significant aphasia from his left hemispheric CVAs and after some discussion with his I suspect a lot of this is pretty near his baseline. MRI report is still pending but neither Kasey Melton nor myself are impressed with any acute new areas of infarction and EEG which I ordered to exclude ongoing focal seizure activity involving the left hemisphere shows no evidence for significant focal abnormalities or spike discharges Its not clear what caused the event last night as he was not hypoglycemic or hyperglycemic to a significant degree and today we do not find evidence for any underlying infectious process but cultures etc. are pending We will check back tomorrow review the chart little more detail including the blood cultures and official MRI report but at this point are making no recommendations about changing his anticoagulation and see no need to add anticonvulsants unless these events would continue to occur. We may indeed end up repeating an MRI noncontrast if he is not significantly improved according to his and if a subsequent MRI would show a stroke we are faced with a very difficult decision regarding anticoagulation as he appears to be on maximum anticoagulants at this point and his INR is in therapeutic range and adding another antiplatelet drug in my opinion is simply not appropriate as it would significantly increase the risk for hemorrhage Cardiology would then have to be contacted for conference regarding other options. 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 He was repeating "yes," "okay", "alright" in response to every question. It was thought he may be hypoglycemic and checked BSG which was elevated. Has residual R hemiparesis and dysphasia from previous stroke. He is on aspirin, plavix and coumadin. is in the room and states he is not back to baseline. EEG was done but not read. He is still answering yes, ok, alright to questions. denies CP, SOB, abdominal pain, falls, new bowel or bladder, no biting of tongue Allergies Allergy/AdvReac Type Severity Reaction Status Date / Time No Known Allergies Allergy Verified 01/11/21 17:11 Home Medications Medication Instructions Recorded Confirmed Type nitroglycerin 0.4 mg sublingual 0.4 mg SUBLINGUAL DIRECTED PRN 08/09/19 01/11/21 History tablet amlodipine 5 mg tablet (Norvasc) 5 mg PO QAM #30 tab 09/22/20 01/11/21 Rx aspirin 81 mg tablet,delayed 81 mg PO QAM #30 tab 09/22/20 01/11/21 Rx release atorvastatin 80 mg tablet (Lipitor) 80 mg PO HS #30 tab 09/22/20 01/11/21 Rx baclofen 5 mg tablet 5 mg PO QAM #30 tab 09/22/20 01/11/21 Rx carvedilol 12.5 mg tablet 12.5 mg PO BID #60 tab 09/22/20 01/11/21 Rx clopidogrel 75 mg tablet (Plavix) 75 mg PO QAM #30 tab 09/22/20 01/11/21 Rx insulin glargine 100 unit/mL See Rx Instructions .ROUTE 09/22/20 01/11/21 Rx subcutaneous solution (Lantus .COMPLEX #10 ml U-100 Insulin) lisinopril 30 mg tablet 30 mg PO DAILY #30 tab 09/22/20 01/11/21 Rx ondansetron 4 mg disintegrating 4 mg PO Q4H PRN #10 tab 09/22/20 01/11/21 Rx tablet insulin aspart U-100 100 unit/mL 9 unit SUBCUT .AC LUNCH & SUPPER 01/11/21 01/11/21 History subcutaneous solution (Novolog U-100 Insulin aspart) insulin aspart U-100 100 unit/mL 10 unit SUBCUT QAM 01/11/21 01/11/21 History subcutaneous solution (Novolog U-100 Insulin aspart) metformin 1,000 mg tablet 500 mg PO BID 01/11/21 01/11/21 History tamsulosin 0.4 mg capsule 0.4 mg PO DAILY 01/11/21 01/11/21 History warfarin 5 mg tablet 5 mg PO .MOWEFRSU 01/11/21 01/11/21 History warfarin 5 mg tablet 7.5 mg PO TUTHSA 01/11/21 01/11/21 History Patient History Medical History (Updated 01/11/21 @ 19:03 by Rosina Sauceda PA-C) 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" Aortic valve stenosis BPH with obstruction/lower urinary tract symptoms CAD (coronary artery disease) Carotid stenosis Diabetic peripheral neuropathy associated with type 2 diabetes mellitus Dyslipidemia Hemiplegia affecting right dominant side History of CVA (cerebrovascular accident) History of pancreatitis HTN (hypertension) Hypomagnesemia Monoplegia affecting right dominant side Obesity Osteomyelitis of great toe of right foot Proliferative diabetic retinopathy Retinal edema Right foot drop Status post cerebrovascular accident Status post myocardial infarction Superior mesenteric artery stenosis Type 2 diabetes mellitus Surgical History Hx of vitrectomy S/P angioplasty with stent S/P CABG x 3 S/P PTCA (percutaneous transluminal coronary angioplasty) Family History Father Heart disease Social History Smoking Status: Former smoker Tobacco Type: Cigarettes Smoking End Date: 1974; Second Hand Exposure: No; Hx Alcohol Use: No Hx Substance Use: No Preferred Language: Georgian Communication Ability: Impaired Visual Impairment: No Limitations Hearing Ability: Normal Magnetic Grinder Operator Required: No Beliefs That Will Affect Care: None marital status: Current Living Situation: Spouse Current Living Situation Comment: Lives with in a split level home but he is in basement current occupational status: disabled Other Information That Helps Us Care for You: No Feels Safe at Home: Yes Safety Concerns: Feels Safe At This Time Assistive Devices: Brace/Splint/Immobilizer, Special Shoe and Walker Review of Systems Review of Systems: Patient's denies any recent fevers, does describe a dental infection about a month ago that required some antibiotics, and feels that a lot of his current status is due to a lots of physical therapy about 2 weeks ago the patient has declined mentally and physically with increased weakness of the right side. She did not see any seizure-like activity at the time he was using the repetitive short words and phrases to respond to her questions. Otherwise she denies any new issues referable to HEENT, cardiovascular pulmonary gastrointestinal genitourinary musculoskeletal derma tologic hematologic systems Physical Exam Physical Exam: Physical Exam: Constitutional appearance over nourished, healthy Ears, Nose, Mouth and Throat: mucous membranes moist, no injection and skin normal, eyes normal Cardiovascular: loud systolic murmer Respiratory: course breath sounds Musculoskeletal: no peripheral edema and good distal pulses, contracture of left hand Skin: no stigmata of neurocutaneous disease noted and normal and intact Eyes: extraocular muscles intact (EOMI) and pupils equal, round and reactive to light (PERRL) NEUROLOGIC EXAMINATION: Mental status: Alert and interactive Oriented to person Speech repeats same over and over to all questions Cranial Nerves smile eye brow raise symmetric, slight flattening right nasal labial fold Reflexes: Deep tendon reflexes were symmetrical and graded 2/5. 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 There is no hemorrhage, mass effect, or evidence of acute territorial ischemia by CT criteria. There is no evidence of hemodynamically significant carotid artery stenosis in the neck noting advanced atherosclerotic calcification of the carotid bulbs. There are foci of moderate stenosis identified within the right posterior cerebral artery and the right middle cerebral artery. These are similar to previous. 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 No focal vessel cut off is seen throughout the intracranial circulation. MRI brain- not officially read- no obvious CVA on review
[2021-01-12 09:53] LABS: Estimated Average Glucose 151 mg/dl; Hemoglobin A1C 6.9 % (4.5-5.6)
--- NOTE | 2021-01-12 10:40 | XCELERA ---
[id number] \\[id number]_[id number]
--- NOTE | 2021-01-12 12:00 | Magnetic Resonance Report ---
MR brain wo/w con HISTORY: 60 years-old Male stroke eval acute strokelike symptoms COMPARISON: Head CT of same day, CTA head and neck of same day, brain MRI 01/22/2020 TECHNIQUE: Multiplanar multisequence MRI of the brain was obtained both with and without the use of 9 .0 mL Gadavist FINDINGS: Motion degraded exam. There is no restricted diffusion to suggest acute or subacute infarct. Areas of blooming artifact are noted within the right lentiform nucleus and thalamus suggestive of calcificat ions and/or hemosiderin. No acute intracranial hemorrhage, midline shift, abnormal extra-axial collec tion, hydrocephalus or intracranial mass. Age-related involutional changes. Extensive T2/FLAIR hyperi ntensities throughout the white matter suggestive of chronic microvascular ischemic disease. Small right frontal lobe developmental venous anomaly as suggested on images 17 and 18. No additional abnormal enhancement. Numerous chronic lacunar infarcts redemonstrated, predominantly involving the basal ganglia and pontine brainstem, unchanged. Cerebral venous sinuses and major arterial flow voids appear patent. Trace right mastoid effusion. Mild polypoid mucosal thickening of the right maxillary sinus. The skull, orbits and soft tissues are unremarkable. IMPRESSION: 1. No acute intracranial abnormality. No acute or subacute infarct. 2. Chronic microvascular ischemic disease with numerous chronic lacunar infarcts. 3. No abnormal enhancement. ACT 112: Negative or not required by law. The above report was generated using voice recognition software. It may contain grammatical, syntax o r spelling errors. Electronically signed by: Abdon Gr M.D. 01/12/2021 1:13 PM
--- NOTE | 2021-01-12 12:07 | Hospitalist Progress Note ---
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 Confusion, repetitive speech since this afternoon, disoriented No new weakness. 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 No acute intracranial abnormality. No acute or subacute infarct. 2. Chronic microvascular ischemic disease with numerous chronic lacunar infarct. 3. No abnormal enhancement. awaiting Neurology input no focus of infection at this time blood cultures pending (3) Fever: Plan: Low grade fever of 37.7 C Recent dental infection, completed course of cefdinir No evidence of opacity on PNA, UA unremarkable Blood cultures: pending afebrile no leukocytosis monitor (4) Hypomagnesemia: Plan: Mg 1.3 - replacing (5) HTN (hypertension): Plan: BP 116/68 off medications hold Carvedilol, Lisinopril, Amlodipine (6) Type 2 diabetes mellitus: Plan: A1c 7.3 in September 2020, a1c 6.9 Hold home agents Basal/bolus insulin while in-patient BSG AC HS (7) CAD (coronary artery disease): Plan: History of CABG x 3. Significant vascular disease including carotid artery stenosis, SMA stenosis, PAD Continue ASA, statin, Plavix. Holding Coreg and lisinopril for now (8) Aortic valve stenosis: Plan: Echo: degree of aortic stenosis is worse compared to 11/2019 DVT Ppx: inr 2.6 Code status: FULL PCP: Junie Dispo: pending PT/OT evaluation Admission and Anticipated Discharge Date Admission Date: January 11, 2021 Subjective ff up for confusion seen resting in chair, alert, awake, comfortable, not in distress oriented to name, 's name, address, knows he is in the hospital otherwise, mostly confused denies headache, dizziness, chest pain, dyspnea, palpitations, abdominal pain, diarrhea no other symptoms further history and ROS also obtained from patient's Nasreen over the phone Review of Systems Review of Systems: all noted and negative except for above Physical Exam Physical Exam: General- oriented x 2, not in distress, speaks in sentences with no effort or accessory muscle use Head- atraumatic Eyes- PERRL, EOMI, anicteric ENT- oropharynx clear Neck- supple, no JVD, no adenopathy, no thyromegaly; carotids +2/2, no bruits appreciated Lungs- clear to auscultation bilaterally, no rales/wheezes Heart- normal rate, regular rhythm; no murmur, no gallop, no rub appreciated Abdomen- normal bowel sounds, nondistended, soft, nontender, no masses or hepatosplenomegaly Extremities- no pretibial edema, no calf tenderness; peripheral pulses intact Neuro- alert, oriented x2. mostly confused; CN 2-12 grossly intact except for dysarthria; motor 5/5 bilaterally on the R, 0/5 on the left ;sensation 100% on all extremities- on the right; no other gross focal neurologic deficits Skin- warm & dry Results & Data Results & Data ([facility] [place]) Vital Signs (Past 12 Hours) Vital Signs Temp Pulse Resp BP Pulse Ox 01/12/21 11:12 37.0 C 95 H 20 116/68 96 01/12/21 07:57 36.8 C 64 19 175/100 H 98 01/12/21 07:21 97 01/12/21 03:00 36.7 C 68 20 128/76 97 all noted and reviewed including below (1) Fever Fever type: unspecified Qualified Code(s): R50.9 - Fever, unspecified
[2021-01-12 13:01] LABS: INR 2.4 (0.9-1.1); Prothrombin Time 22.8 Seconds (9.0-12.0)
--- NOTE | 2021-01-12 15:59 | Electroencephalogram ---
EEG Procedure Note Date of Service January 12, 2021 Start / End Times Start Time: 1249 End Time: 109 Referring Physician oneyda Ansari MD History Transient confusion of uncertain cause in a man with multiple cerebrovascular accidents in the past question focal seizures Home Medication List Medication Instructions Recorded Confirmed Type nitroglycerin 0.4 mg sublingual 0.4 mg SUBLINGUAL DIRECTED PRN 08/09/19 01/11/21 History tablet amlodipine 5 mg tablet (Norvasc) 5 mg PO QAM #30 tab 09/22/20 01/11/21 Rx aspirin 81 mg tablet,delayed 81 mg PO QAM #30 tab 09/22/20 01/11/21 Rx release atorvastatin 80 mg tablet (Lipitor) 80 mg PO HS #30 tab 09/22/20 01/11/21 Rx baclofen 5 mg tablet 5 mg PO QAM #30 tab 09/22/20 01/11/21 Rx carvedilol 12.5 mg tablet 12.5 mg PO BID #60 tab 09/22/20 01/11/21 Rx clopidogrel 75 mg tablet (Plavix) 75 mg PO QAM #30 tab 09/22/20 01/11/21 Rx insulin glargine 100 unit/mL See Rx Instructions .ROUTE 09/22/20 01/11/21 Rx subcutaneous solution (Lantus .COMPLEX #10 ml U-100 Insulin) lisinopril 30 mg tablet 30 mg PO DAILY #30 tab 09/22/20 01/11/21 Rx ondansetron 4 mg disintegrating 4 mg PO Q4H PRN #10 tab 09/22/20 01/11/21 Rx tablet insulin aspart U-100 100 unit/mL 9 unit SUBCUT .AC LUNCH & SUPPER 01/11/21 01/11/21 History subcutaneous solution (Novolog U-100 Insulin aspart) insulin aspart U-100 100 unit/mL 10 unit SUBCUT QAM 01/11/21 01/11/21 History subcutaneous solution (Novolog U-100 Insulin aspart) metformin 1,000 mg tablet 500 mg PO BID 01/11/21 01/11/21 History tamsulosin 0.4 mg capsule 0.4 mg PO DAILY 01/11/21 01/11/21 History warfarin 5 mg tablet 5 mg PO .MOWEFRSU 01/11/21 01/11/21 History warfarin 5 mg tablet 7.5 mg PO TUTHSA 01/11/21 01/11/21 History Inpatient Medication List Aspirin (Aspirin 81 Mg Ectab) 81 mg PO [facility] Stop: 02/11/21 08:59 Last Admin: 01/12/21 07:24 Dose: 81 mg Documented by: [id number] Atorvastatin Calcium (Atorvastatin 40 Mg Tab) 80 mg PO [facility] Stop: 02/10/21 21:59 Last Admin: 01/11/21 22:25 Dose: Not Given Documented by: [id number] Baclofen (Baclofen 10 Mg Tab) 5 mg PO [facility] Stop: 02/11/21 08:59 Last Admin: 01/12/21 07:23 Dose: 5 mg Documented by: [id number] Clopidogrel Bisulfate (Clopidogrel Bisulfate 75 Mg Tab) 75 mg PO [facility] Stop: 02/11/21 08:59 Last Admin: 01/12/21 07:24 Dose: 75 mg Documented by: [id number] Insulin Aspart (Insulin Aspart 100 Units/Ml 3 Ml Pen) 0 units SC Q6 [facility] Stop: 02/10/21 21:59 Last Admin: 01/12/21 12:24 Dose: 1 units Documented by: [id number] Cosigned by: [id number] Admin: 01/12/21 06:10 Dose: Not Given Documented by: [id number] Cosigned by: [id number] Admin: 01/11/21 23:51 Dose: Not Given Documented by: [id number] Cosigned by: [id number] Insulin Glargine (Insulin Glargine Solostar 100 Units/Ml 3 Ml Pen) 0 - 12 units SC BID [facility] Stop: 02/10/21 21:59 Last Admin: 01/12/21 07:29 Dose: 8 units Documented by: [id number] Cosigned by: [id number] Admin: 01/11/21 23:01 Dose: Not Given Documented by: [id number] Tamsulosin HCl (Tamsulosin Hcl 0.4 Mg Cap) 0.4 mg PO DAILY [facility] Stop: 02/11/21 08:59 Last Admin: 01/12/21 07:24 Dose: 0.4 mg Documented by: [id number] Discontinued Medications Aspirin (Aspirin 300 Mg Supp) 300 mg FL ONE ONE Stop: 01/11/21 17:24 Last Admin: 01/11/21 17:53 Dose: 300 mg Documented by: [id number] Gadobutrol (Gadobutrol 10ml Vial) 9 ml IV ONCE ONE Stop: 01/12/21 00:05 Last Admin: 01/12/21 00:04 Dose: 9 ml Documented by: [id number] Magnesium Sulfate/Dextrose (Magnesium Sulfate / D5w) 1 gm in 100 mls @ 100 m ls/hr IV Q1H [facility] Stop: 01/11/21 19:23 Last Infusion: 01/11/21 20:10 Dose: 0 mls/hr Documented by: [id number] Admin: 01/11/21 19:10 Dose: 100 mls/hr Documented by: [id number] Infusion: 01/11/21 18:53 Dose: 100 mls/hr Documented by: [id number] Admin: 01/11/21 17:53 Dose: 100 mls/hr Documented by: [id number] Acetaminophen (Ofirmev) 1,000 mg in 100 mls @ 400 mls/hr IV NOW STA Stop: 01/11/21 20:03 Last Admin: 01/11/21 22:23 Dose: Not Given Documented by: [id number] Sodium Chloride (Nss) 500 mls @ 50 mls/hr IV .Q10H [facility] Stop: 01/12/21 07:14 Last Infusion: 01/12/21 08:35 Dose: 0 mls/hr Documented by: [id number] Admin: 01/11/21 22:32 Dose: 50 mls/hr Documented by: [id number] Insulin Aspart (Insulin Aspart 100 Units/Ml 3 Ml Pen) 0 units SC ACHS SU[facility] Stop: 02/10/21 21:59 Last Admin: 01/11/21 23:52 Dose: Not Given Documented by: [id number] Cosigned by: [id number] Ioversol (Optiray 320 125ml) 120 ml IV ONCE ONE Stop: 01/11/21 16:27 Last Admin: 01/11/21 16:26 Dose: 120 ml Documented by: [id number] Ondansetron HCl (Ondansetron Inj 2 Mg/Ml 2 Ml Vial) Confirm Administered Dose 4 mg .ROUTE .[facility] ONE Stop: 01/11/21 16:57 Last Admin: 01/11/21 16:57 Dose: 4 mg Documented by: [id number] Description This is a 21 electrode EEG with a single channel dedicated to limited EKG. The electrodes were placed in accordance with the International 10-20 system. This EEG was done as a bedside recording is of reasonable technical quality although periodically there are a number of muscle movement artifacts captured on video during which the patient appears to be conversing and moving about Once this activity stops the tracing does have a background rhythm in the alpha range at about 9 Hz maximum frequency and 20 V maximum amplitude which is maximum posterior head regions bilaterally symmetrical. Polymorphic mid to slightly lower frequency modest voltage theta activity is seen over all head regions particularly over the central regions and symmetrical fashion without any lateralizing features. Beta activity seen bifrontally At no time during the tracing is or evidence for potentially epileptogenic activity form of polyspike and spike-wave burst, focal sharp waves or focal spikes Interpretation This EEG is essentially normal during wakefulness without evidence for focal or generalized encephalopathy without evidence for potentially epileptogenic activity Clinical Correlation This EEG is normal and as above reveals no evidence for focal generalized encephalopathy no evidence for potentially epileptiform features. The absence of such activity does not exclude a seizure disorder and if events of a similar type continue to occur without any evidence for new vascular events and a more protracted outpatient 72-hour recording may be of further value Oneyda Ansari MD Supervising Physician Co-Signing Physician Notes I have reviewed the above report and agree with its content Oneyda Ansari MD
[2021-01-12] MEDS ORDERED: Nursing to Pharmacy Communication SCH (17:30)
--- NOTE | 2021-01-12 17:34 | Electrocardiogram Report ---
Test Reason : Blood Pressure : / mmHG Vent. Rate : 077 BPM Atrial Rate : 077 BPM P-R Int : 142 ms QRS Dur : 086 ms QT Int : 374 ms P-R-T Axes : 027 022 118 degrees QTc Int : 423 ms Normal sinus rhythm Possible Left atrial enlargement Inferior infarct (cited on or before 13-OCT-2006) possible acute Anterolateral infarct (cited on or before 13-OCT-2006) Consider right ventricular involvement in acute inferior infarct Abnormal ECG When compared with ECG of 13-SEP-2020 06:12, No significant change was found Confirmed by Tucker Pollard ([id number] on 01/12/2021 5:33:46 PM Referred By: REFERRED SELF Confirmed By:Bryon Pollard
[2021-01-12] MEDS: WARFARIN SOD 5 MG TAB PO SCH (17:49)
[2021-01-12] MEDS: ATORVASTATIN 40 MG TAB PO SCH (21:09)
[2021-01-13] MEDS ORDERED: PROMETHAZINE HCL 12.5 MG in SODIUM CHLORIDE 0.9% 50 ML IV STA (06:04)
[2021-01-13] MEDS: BACLOFEN 10 MG TAB PO SCH (07:17)
[2021-01-13] MEDS: ASPIRIN 81 MG ECTAB PO SCH (07:17)
[2021-01-13] MEDS: TAMSULOSIN HCL 0.4 MG CAP PO SCH (07:17)
[2021-01-13] MEDS: CLOPIDOGREL BISULFATE 75 MG TAB PO SCH (07:17)
[2021-01-13 07:30] LABS: INR 2.8 (0.9-1.1)
[2021-01-13] MEDS: INSULIN ASPART 100 UNITS/ML 3 ML PEN SC SCH ×4 (08:17→21:40)
[2021-01-13] MEDS: lisinopril 10 MG TAB PO SCH (08:17)
[2021-01-13] MEDS: carvediloL 12.5 MG TAB PO SCH ×2 (08:17→17:47)
[2021-01-13] MEDS: INSULIN GLARGINE SOLOSTAR 100 UNITS/ML 3 ML PEN SC SCH ×2 (08:18→21:39)
--- NOTE | 2021-01-13 13:14 | Hospitalist Progress Note ---
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 Confusion, repetitive speech since this afternoon, disoriented No new weakness. 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 No acute intracranial abnormality. No acute or subacute infarct. 2. Chronic microvascular ischemic disease with numerous chronic lacunar infarct. 3. No abnormal enhancement. EEG: Normal Neurology consulted--> uncertain of etiology for encephalopathy, may need repeat brain MRI if no improvement 01/13/2021 Patient drowsy today, received Phenergan this morning BSG [address] head: Pending no focus of infection at this time, afebrile blood cultures pending (3) Fever: Plan: Low grade fever of 37.7 C on admission Recent dental infection, completed course of cefdinir --> no signs and symptoms of dental infection at this point No evidence of opacity on PNA, UA unremarkable Blood cultures: pending afebrile no leukocytosis monitor (4) Hypomagnesemia: Plan: Mg 1.3 - replacing (5) HTN (hypertension): Plan: Resume carvedilol and lisinopril Hold amlodipine for now-suspecting possibly low blood pressure at home (6) Type 2 diabetes mellitus: Plan: A1c 7.3 in September 2020, a1c 6.9 Hold home agents Basal/bolus insulin while in-patient BSG AC HS (7) CAD (coronary artery disease): Plan: History of CABG x 3. Significant vascular disease including carotid artery stenosis, SMA stenosis, PAD Continue ASA, statin, Plavix, Coreg, lisinopril (8) Aortic valve stenosis: Plan: Echo: degree of aortic stenosis is worse compared to 11/2019 Dysphagia --N.p.o. for now except meds --Speech therapy evaluation DVT Ppx: inr 2.6 Code status: FULL PCP: Junie Dispo: pending PT/OT evaluation Admission and Anticipated Discharge Date Admission Date: January 11, 2021 Subjective Follow-up for encephalopathy, etc. Seen resting in bed, drowsy, awakens by tactile stimuli Appears somewhat confused Drifts back to sleep BSG 179 Per RN, patient was vomiting overnight No other issues noted Full ROS unable to be obtained due to patient's mental status Review of Systems Review of Systems: Per above Physical Exam Physical Exam: General- oriented x 0, drowsy, not in distress, breathing with no effort or accessory muscle use Eyes- anicteric Neck- no JVD Lungs- clear breath sounds bilaterally, no rales/wheezes Heart- normal rate, regular rhythm; no murmurs Abdomen- normal bowel sounds, nondistended, soft, nontender Extremities- no pretibial edema, no calf tenderness Neuro-drowsy, responds to tactile stimuli, able to move right arm well Skin- warm & dry Results & Data Results & Data ([facility]) Vital Signs (Past 12 Hours) Vital Signs Temp Pulse Pulse Resp BP Pulse Ox 01/13/21 11:25 37.2 C 71 16 145/76 H 98 01/13/21 07:44 36.5 C 73 156/81 H 96 01/13/21 04:00 36.5 C 71 18 187/95 H 98 01/13/21 03:12 172/77 H 01/13/21 02:22 77 all noted and reviewed including below (1) Fever Fever type: unspecified Qualified Code(s): R50.9 - Fever, unspecified
--- NOTE | 2021-01-13 13:36 | CT Scan Report ---
CT head/brain wo con CLINICAL HISTORY: 60 years-old Male with altererd mental status, r/o CVA. Acutely altered mental sta tus with strokelike symptoms TECHNIQUE: Multiple axial CT images of the head were obtained without contrast. A dose lowering tech nique was utilized adhering to the principles of ALARA. CT DOSE: 1382.10 mGy.cm COMPARISON: Brain MRI 01/11/2021, head CT 01/11/2021 FINDINGS: Motion degraded exam. No acute intracranial hemorrhage, midline shift, intracranial mass, hydrocephal us, territorial ischemia or abnormal extra-axial collection. Age-related involutional changes with ex vacuo ventriculomegaly. White matter hypodensities suggestive of chronic microvascular ischemic dise ase. Chronic lacunar infarcts of the sarabjit. Cerebral vascular calcifications. The calvarium is intact. The paranasal sinuses, mastoid air cells, and middle ear cavities are clear . IMPRESSION: Motion degraded exam. No acute intracranial abnormality identified. ACT 112: Negative or not required by law. The above report was generated using voice recognition software. It may contain grammatical, syntax o r spelling errors. Electronically signed by: Abdon Gr M.D. 01/13/2021 1:35 PM
--- NOTE | 2021-01-13 15:01 | XRay Report ---
XR KUB/Abdomen 1 view CLINICAL HISTORY: r/o obstruction COMPARISON STUDY: No previous studies for comparison. FINDINGS: Multiple nondilated gas and stool-filled loops of bowel are seen throughout the abdomen. Large amount of stool is seen within pelvic region and left lower quadrant. View of upper abdomen and lung bases is slightly limited due to motion artifact. Multilevel degenerative changes of the spine and midline sternotomy wires are seen. Degenerative changes of bilateral hip joints are demonstrated. IMPRESSION: 1. Constipation pattern. ACT 112: Negative or not required by law. The above report was generated using voice recognition software. It may contain grammatical, syntax o r spelling errors. Electronically signed by: Peggy Church DO 01/13/2021 3:00 PM
[2021-01-13] MEDS: NSS + 20MEQ KCL 20 MEQ/1,000 ML BAG IV SCH (15:03)
--- NOTE | 2021-01-13 15:03 | XRay Report ---
XR chest 1V portable CLINICAL HISTORY: F/U COMPARISON STUDY: January 2021 FINDINGS: No definite pneumothorax seen however evaluation is limited because left lung apex is partially obscu red by patient's chin. Also minimal motion artifact further limits evaluation.. No pleural effusion. No large infiltrates or consolidative lesions are seen. Cardiomediastinal silhouette is within normal limits in size. Previously seen cardiomegaly is not vis ualized on current study. No significant pulmonary vascular congestion.. Osseous structures: Degenerative changes of the spine. Midline sternotomy wires and surgical maribel projecting to mediastinal region are again seen. IMPRESSION: 1. No acute pulmonary process. ACT 112: Negative or not required by law. The above report was generated using voice recognition software. It may contain grammatical, syntax o r spelling errors. Electronically signed by: Peggy Church DO 01/13/2021 3:02 PM
[2021-01-13 15:05] LABS: Basophils # (auto) 0.01 K/uL (0-0.2); Basophils % (auto) 0.2 %; Eosinophils # (auto) 0.01 K/uL (0-0.5); Eosinophils % (auto) 0.2 %; Hematocrit (blood only) 39.8 % (42-52); Hemoglobin 13.2 g/dL (14.0-18.0); Lymphocytes # (auto) 1.18 K/uL (1.2-3.4); Lymphocytes % (auto) 19.9 %; Mean Corpuscular Hemoglobin 25.8 pg (25-34); Mean Corpuscular Volume 77.7 fL (80-100); Mean Platelet Volume 9.6 fL (7.4-10.4); Monocytes # (auto) 0.29 K/uL (0.11-0.59); Monocytes % (auto) 4.9 %; Neutrophils # (auto) 4.45 K/uL (1.4-6.5); Neutrophils % (auto) 74.8 %; Platelet Count 235 K/uL (130-400); RDW Standard Deviation 42.8 fL (36.4-46.3); Red Blood Count 5.12 M/uL (4.7-6.1); White Blood Count 5.94 K/uL (4.8-10.8)
[2021-01-13 15:23] LABS: BUN Creatinine Ratio 23.9 (10-20); Calcium 8.8 mg/dl (8.5-10.1); Creatinine Clr Calc Pharmacy 152.8 ml/min; Est GFR (African American) 130.4 ml/min; Est GFR (Non-African American) 112.5 ml/min; Potassium 4.1 mmol/L (3.5-5.1)
[2021-01-13 15:33] LABS: Mean Corpuscular Hgb Conc 33.2 g/dL (32-36)
--- NOTE | 2021-01-13 15:48 | Communication Note ---
Date of Service: January 13, 2021 Deja unfortunately has received Phenergan to control his nausea and vomiting that occurred overnight and is now very lethargic and poorly responsive so it is very difficult to state whether or not his neurologic status is back to baseline. Because of the overnight nausea and vomiting is uncertain. He had not eaten for about 24 hours he may have some gastroparesis due to diabetes with an autonomic neuropathy he could have an underlying GI issue but right now the hospitalist will be addressing these particular issues and management When I speak to his I get the impression he was nearing his baseline yesterday afternoon but she felt he was still not quite back to where he had been One of his antihypertensives has been held in hopes that this was a case of some hypoperfusion The MRI scan does not show any evidence for new infarction but there is quite a bit of ischemic leukoencephalopathy and a small new infarction could easily be missed At this point I am recommending that we observe him another 24 hours I will check back with him tomorrow afternoon hopefully his will be able to interview him and interact with him and then make a judgment about whether his mental status is back to normal or baseline for him and if this is the case and I think we can defer on further imaging but if it is not the case then I think we will have to do another noncontrast MRI If this does reveal a new stroke then we may have to revisit the whole concept of his anticoagulation program and hopefully this will not prove to be the case and we can leave this this aspect of his care alone I really do not know how his is managing to care for him at home in this particular state and I think we ought to plan for another rehabilitation medicine assessment and possibly inpatient stay after discharge I will check back with him tomorrow Garrick Ansari MD
--- NOTE | 2021-01-13 17:11 | Hospitalist Progress Note ---
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 Confusion, repetitive speech since this afternoon, disoriented No new weakness. 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 No acute intracranial abnormality. No acute or subacute infarct. 2. Chronic microvascular ischemic disease with numerous chronic lacunar infarct. 3. No abnormal enhancement. EEG: Normal Neurology consulted--> uncertain of etiology for encephalopathy, may need repeat brain MRI if no improvement 01/13/2021 Patient drowsy today, received Phenergan this morning BSG [address] head: Pending no focus of infection at this time, afebrile blood cultures pending (3) Fever: Plan: Low grade fever of 37.7 C on admission Recent dental infection, completed course of cefdinir --> no signs and symptoms of dental infection at this point No evidence of opacity on PNA, UA unremarkable Blood cultures: pending afebrile no leukocytosis monitor (4) Hypomagnesemia: Plan: Mg 1.3 - replacing (5) HTN (hypertension): Plan: Resume carvedilol and lisinopril Hold amlodipine for now-suspecting possibly low blood pressure at home (6) Type 2 diabetes mellitus: Plan: A1c 7.3 in September 2020, a1c 6.9 Hold home agents Basal/bolus insulin while in-patient BSG AC HS (7) CAD (coronary artery disease): Plan: History of CABG x 3. Significant vascular disease including carotid artery stenosis, SMA stenosis, PAD Continue ASA, statin, Plavix, Coreg, lisinopril (8) Aortic valve stenosis: Plan: Echo: degree of aortic stenosis is worse compared to 11/2019 Dysphagia --N.p.o. for now except meds --Speech therapy evaluation DVT Ppx: inr 2.6 Code status: FULL PCP: Junie Dispo: pending PT/OT evaluation Admission and Anticipated Discharge Date Admission Date: January 11, 2021 Subjective ff up for encephalopathy, etc seen resting in bed, drowsy awakened by tactile stimuli Results & Data Results & Data ([facility]) Vital Signs (Past 12 Hours) Vital Signs Temp Pulse Resp BP Pulse Ox 01/13/21 16:23 36.9 C 86 16 199/85 H 97 01/13/21 11:25 37.2 C 71 16 145/76 H 98 01/13/21 07:44 36.5 C 73 156/81 H 96 (1) Fever Fever type: unspecified Qualified Code(s): R50.9 - Fever, unspecified
[2021-01-13] MEDS: WARFARIN SOD 5 MG TAB PO SCH (17:47)
[2021-01-13] MEDS ORDERED: WARFARIN SOD 7.5 MG TAB PO SCH (19:43)
[2021-01-13] MEDS: ATORVASTATIN 40 MG TAB PO SCH (20:22)
[2021-01-14] MEDS: NSS + 20MEQ KCL 20 MEQ/1,000 ML BAG IV SCH (06:25)
[2021-01-14 08:46] LABS: INR 4.6 (0.9-1.1); Prothrombin Time 41.5 Seconds (9.0-12.0)
[2021-01-14] MEDS: INSULIN ASPART 100 UNITS/ML 3 ML PEN SC SCH ×4 (09:43→20:37)
[2021-01-14] MEDS: INSULIN GLARGINE SOLOSTAR 100 UNITS/ML 3 ML PEN SC SCH ×2 (09:45→20:37)
[2021-01-14] MEDS: lisinopril 10 MG TAB PO SCH (09:46)
[2021-01-14] MEDS: BACLOFEN 10 MG TAB PO SCH (09:47)
[2021-01-14] MEDS: ASPIRIN 81 MG ECTAB PO SCH (09:48)
[2021-01-14] MEDS: carvediloL 12.5 MG TAB PO SCH ×2 (09:48→18:14)
[2021-01-14] MEDS: CLOPIDOGREL BISULFATE 75 MG TAB PO SCH (09:48)
[2021-01-14] MEDS: amLODIPine BESYLATE 5 MG TAB PO SCH (09:49)
[2021-01-14] MEDS: TAMSULOSIN HCL 0.4 MG CAP PO SCH (09:51)
--- NOTE | 2021-01-14 15:57 | Communication Note ---
Date of Service: January 14, 2021 I saw Deja today and he is much better than he was yesterday. This does not set the bar too high however as yesterday he was very sedated on Phenergan, was stuporous and noncommunicative The day before he was more lethargic cannot really communicate had more dysarthria but the MRI scan did not show any evidence for an acute stroke. It did show evidence for fairly extensive white matter disease Today he is more alert he has dysarthric speech seems to have a little word finding deficit has a pretty dense hemiparesis and his feels that the right arm may be worse than he has been at baseline but admits that she has not been following her with physical therapy for 2 weeks and he may be declining on this basis She is very concerned that we have no explanation for what happened on the day of admission. This may have been a hypotensive event. There was no evidence for seizure. There has been no evidence for a new stroke but we certainly can miss acute strokes and at this point to address her concerns and to perhaps guide some future therapeutic decisions I am going to suggest we do a noncontrast MRI scan in the morning to see if there is evidence now for any injury to the left hemisphere or brainstem that might explain the event. If this is negative then I think he really needs to be assessed for a potential inpatient [facility] or other rehabilitation facility stay as I do not know how his can continue to manage him in his current state Orders have been placed and I will check him tomorrow afternoon with neurology next makes rounds Garrick Ansari MD
--- NOTE | 2021-01-14 16:55 | Hospitalist Progress Note ---
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 Is being managed in the floor for the following: #. Acute encephalopathy Admitting presentation was confusion with repetitive speech and disorientation Initial concern was TIA versus hypertensive episode. Not a TPA candidate with INR of 3. Patient was taking aspirin, Plavix and Coumadin at home. Admitting EKG: Normal sinus rhythm, heart rate 77, QTc 423, MN 142, possible left atrial enlargement. No significant change from previous EKG. Admitting imagings [CT head, CTA head/neck showed no acute intracranial changes]. Admitting brain MRI: No acute intracranial abnormality. Chronic microvascular ischemic disease with numerous chronic lacunar infarcts. Admitting echo: LVEF 65 to 70% with normal left ventricular systolic function and grade 1 diastolic dysfunction. Severe mitral annular calcification. Severe aortic stenosis-worse than when compared to echo from 12/04/2019. Repeat head CT 01/13 for acute alteration in mental status: No acute intracranial abnormality. Neurology on board: No evidence for seizure [normal EEG]. Plan to repeat MRI 01/14 to follow-up on possible stroke. Recommends inpatient rehab. Patient feeling better today, alert and oriented to self, cooperative. Speech evaluated the patient: Recommended diet with aspiration precaution. Continue to monitor, neurochecks. Avoid promethazine. #. Supratherapeutic INR: Patient takes warfarin 7.5 mg p.o. TuThSa and 5 mg p.o. MoWeFrSu. 01/14 INR 4.6: We will hold his warfarin today, repeat INR tomorrow morning Likely reduce the dose when resumed next time and follow-up for dose adjustment. #. Fever Low grade fever of 37.7 C on admission Recent dental infection, completed course of cefdinir --> no signs and symptoms of dental infection at this point No evidence of opacity on PNA, UA unremarkable No focus of infection so far. 01/11 blood culture: No growth so far. Follow-up with the final culture. WBC WNL, temperatureno spike. Continue to monitor. #. HTN: Concern of hypotension at home. Has maintained high blood pressure while in here. Continue with amlodipine, carvedilol and lisinopril. Will resume his amlodipine. Continue to monitor. #. 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 #. CAD and PAF: History of CABG x3, carotid artery stenosis, SMA stenosis, PAD. Continue with aspirin, statin, Plavix, Coreg, lisinopril, Coumadin. #. Aortic valve stenosis: Echo: degree of aortic stenosis is worse compared to 11/2019 #. Constipation and electrolytes: 01/13 x-ray KUB: Constipation pattern. Repeat blood work tomorrow morning Continue with as needed MiraLAX and scheduled Colace. Disposition: Await repeat MRI. PT recommends SNF [tires easily]. insisting that [facility]. Admission and Anticipated Discharge Date Admission Date: January 11, 2021 Subjective Patient was lying in bed, on room air, alert, oriented to self, cooperative, denies any pain, responds appropriately. Per RN, no issues overnight, patient ate in the morning, bowel movement was yesterday. Patient denied any headache/chills/shortness of breath/fever/belly pain/chest pain/acute changes in bowel bladder habit. Physical Exam Physical Exam: GENERAL: Alert and oriented x0. NAD, on RA. Cooperative. HEENT: No pallor, no icterus. Pupils equal, round and reactive to light. Oral mucosa moist. NECK: No JVD, no neck masses. HEART: S1 and S2 heard. Regular rate and rhythm. Systolic murmur appreciated in aortic and pulmonic area, no gallop. RESPIRATORY SYSTEM: Normal AP diameter. No accessory muscle use. No wheezing, no crackles. ABDOMEN: Soft, bowel sounds present, nontender, no distention. CENTRAL NERVOUS SYSTEM: Alert and oriented x0. No facial droop. Speech is clear. Obeys simple commands. Moves extremities. EXTREMITIES: No edema, no erythema seen. Power: Right extremity 3/5, left extremity 5/5 Results & Data Results & Data ([facility]) Vital Signs (Past 12 Hours) Vital Signs Temp Pulse Pulse Resp BP Pulse Ox 01/14/21 16:13 36.8 C 68 17 153/76 H 96 01/14/21 08:13 36.6 C 66 18 174/73 H 97 01/14/21 08:00 72
--- NOTE | 2021-01-14 17:22 | Magnetic Resonance Report ---
MRI OF THE BRAIN WITHOUT IV CONTRAST CLINICAL HISTORY: Strokelike symptoms. COMPARISON STUDY: CT of the brain dated 01/13/2021. MRI of the brain dated 01/11/2021. TECHNIQUE: MRI of the brain was performed utilizing various T1 and T2-weighted sequences in the axial , sagittal, and coronal planes. IV contrast was not administered for this examination. FINDINGS: Brain parenchyma: There are punctate foci of restricted diffusion identified within the periventricul ar left occipital lobe (image #10) and within the left middle cerebellar peduncle (axial image #7). T here is corresponding drop in signal on the ADC maps and these are consistent with tiny foci of acute to subacute ischemia. No additional foci of acute ischemia are identified. There is no hemorrhage or mass effect. Age-advanced involutional change is noted with advanced subcortical and periventricular microangiopathic disease. Small chronic lacunar infarcts are noted in the right cerebellar hemispher e, the sarabjit, and the basal ganglia. There are small chronic right parietal and occipital infarcts. Gr ay-white matter differentiation is preserved. No extra-axial fluid collection is seen. The cerebellar tonsils are normal in configuration. Ventricles, sulci, and cisterns: Prominent secondary to involutional change. Pituitary and sella: Unremarkable. Intracranial vasculature: Normal flow voids are maintained at the skull base. Orbits: The bony orbits are grossly intact. Orbital contents are normal in appearance. Sinuses and mastoids: There is a 1.8 cm retention cyst and trace mucosal thickening in the right maxi llary antrum. The remaining paranasal sinuses are clear and the mastoid air cells are well pneumatize d. Calvarium: Unremarkable. Cervical cord: Partially visualized cervical spinal cord is normal in morphology and signal intensity . IMPRESSION: 1. There are punctate foci of restricted diffusion identified within the periventricular left occipit al lobe and within the left cerebellum consistent with tiny acute to subacute infarcts. 2. No additional foci of acute ischemia are identified. 3. There is no hemorrhage or mass effect. 4. Additional chronic and senescent changes as above. ACT 112: Negative or not required by law. Electronically signed by: Donny Fernando M.D. 01/14/2021 5:20 PM
[2021-01-14] MEDS: DOCUSATE SODIUM 100 MG CAP PO SCH (20:16)
[2021-01-14] MEDS: ATORVASTATIN 40 MG TAB PO SCH (20:16)
[2021-01-15] MEDS: NSS + 20MEQ KCL 20 MEQ/1,000 ML BAG IV SCH ×3 (01:10→22:03)
--- NOTE | 2021-01-15 08:45 | Cardiology Consultation ---
Date of Consultation January 15, 2021 Assessment & Plan (1) History of CVA (cerebrovascular accident): (2) Weakness: (3) Altered mental status: (4) Generalized weakness: (5) Status post cerebrovascular accident: (6) CAD (coronary artery disease): (7) Aortic valve stenosis: (8) Type 2 diabetes mellitus: (9) Peripheral arterial disease: Unfortunately he has sustained another CVA despite already being on triple therapy. No cardiac source for embolization found. Patient with diffuse atheromatous disease noted throughout his aorta and periphery, likely source of embolization. Already on Coumadin. From a cardiac standpoint the only recommendations I can make at this time would be to switch his atorvastatin to rosuvastatin 40 mg daily and consider PCSK9 inhibitor initiation as an outpatient to stabilize plaque No further cardiac testing necessary at this time Severe aortic stenosis but no indication for intervention at this time especially given recurrent CVAs. History of Present Illness Reason for Consultation: Recurrent CVA Requesting Physician: Dr. Santana Attending Physician: Dave Santana MD History of Present Illness Patient seen and examined, chart reviewed. Initially admitted on 01/11/2021 with recurrent strokelike symptoms. Follow-up MRI did show a new acute infarct along with previous old infarcts. Patient currently much more confused than the baseline and I have seen him that in the past. Speech is slurred but denies any complaints. Specifically denies any chest pain, shortness of breath, palpitations, lightheadedness, dizziness or syncope. Past medical hx as per most recent outpatient cardiology visit: 1. Asymptomatic, borderline severe to severe aortic valve stenosis 2. 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 in the setting of diabetes for which patient initially underwent off pump 3 vessel coronary artery bypass grafting in 2006 with DUARTE to LAD, SVG to circumflex and SVG to PDA 3. Bare metal stent to protected left main coronary artery 08/13/2015 4. PCI drug-eluting stent to the saphenous vein graft to RPDA 04/17/2014 5. PCI, drug-eluting stent to the ostial portion of the SVG to RCA 12/04/2014 for severe in stent restenosis 6. Moderate carotid occlusive disease 7. Cerebral vascular disease status post bilateral frontal infarctions on 05/30/2015 while he was already on dual anti-platelet therapy with aspirin and clopidogrel, prompting initiation of warfarin at that time, recurrent stroke 11/2017 8. Diabetes 9. Dyslipidemia 10. R great toe ulcer /osteomyelitis Allergies Allergy/AdvReac Type Severity Reaction Status Date / Time No Known Allergies Allergy Verified 01/11/21 17:11 Home Medications Medication Instructions Recorded Confirmed Type nitroglycerin 0.4 mg sublingual 0.4 mg SUBLINGUAL DIRECTED PRN 08/09/19 01/11/21 History tablet amlodipine 5 mg tablet (Norvasc) 5 mg PO QAM #30 tab 09/22/20 01/11/21 Rx aspirin 81 mg tablet,delayed 81 mg PO QAM #30 tab 09/22/20 01/11/21 Rx release atorvastatin 80 mg tablet (Lipitor) 80 mg PO HS #30 tab 09/22/20 01/11/21 Rx baclofen 5 mg tablet 5 mg PO QAM #30 tab 09/22/20 01/11/21 Rx carvedilol 12.5 mg tablet 12.5 mg PO BID #60 tab 09/22/20 01/11/21 Rx clopidogrel 75 mg tablet (Plavix) 75 mg PO QAM #30 tab 09/22/20 01/11/21 Rx insulin glargine 100 unit/mL See Rx Instructions .ROUTE 09/22/20 01/11/21 Rx subcutaneous solution (Lantus .COMPLEX #10 ml U-100 Insulin) lisinopril 30 mg tablet 30 mg PO DAILY #30 tab 09/22/20 01/11/21 Rx ondansetron 4 mg disintegrating 4 mg PO Q4H PRN #10 tab 09/22/20 01/11/21 Rx tablet insulin aspart U-100 100 unit/mL 9 unit SUBCUT .AC LUNCH & SUPPER 01/11/21 01/11/21 History subcutaneous solution (Novolog U-100 Insulin aspart) insulin aspart U-100 100 unit/mL 10 unit SUBCUT QAM 01/11/21 01/11/21 History subcutaneous solution (Novolog U-100 Insulin aspart) metformin 1,000 mg tablet 500 mg PO BID 01/11/21 01/11/21 History tamsulosin 0.4 mg capsule 0.4 mg PO DAILY 01/11/21 01/11/21 History warfarin 5 mg tablet 5 mg PO .MOWEFRSU 01/11/21 01/11/21 History warfarin 5 mg tablet 7.5 mg PO TUTHSA 01/11/21 01/11/21 History Patient History Medical History 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" Aortic valve stenosis BPH with obstruction/lower urinary tract symptoms CAD (coronary artery disease) Carotid stenosis Diabetic peripheral neuropathy associated with type 2 diabetes mellitus Dyslipidemia Hemiplegia affecting right dominant side History of CVA (cerebrovascular accident) History of pancreatitis HTN (hypertension) Hypomagnesemia Monoplegia affecting right dominant side Obesity Osteomyelitis of great toe of right foot Proliferative diabetic retinopathy Retinal edema Right foot drop Status post cerebrovascular accident Status post myocardial infarction Superior mesenteric artery stenosis Type 2 diabetes mellitus Surgical History Hx of vitrectomy S/P angioplasty with stent S/P CABG x 3 S/P PTCA (percutaneous transluminal coronary angioplasty) Family History Father Heart disease Social History Smoking Status: Former smoker Tobacco Type: Cigarettes Smoking End Date: 1974; Second Hand Exposure: No; Hx Alcohol Use: No Hx Substance Use: No Preferred Language: [place] Communication Ability: Impaired Visual Impairment: No Limitations Hearing Ability: Normal Client Services Associate Required: No Beliefs That Will Affect Care: None marital status: Current Living Situation: Spouse Current Living Situation Comment: Lives with in a split level home but he is in basement current occupational status: disabled Other Information That Helps Us Care for You: No Feels Safe at Home: Yes Safety Concerns: Feels Safe At This Time Assistive Devices: None Review of Systems Review of Systems: All systems reviewed & are unremarkable except as noted in HPI & below Physical Exam Physical Exam: General: Awake, alert and oriented x 3. No acute distress. HEENT: Normocephalic, atraumatic. Pupils equal, round and reactive to light and accommodation. Extraocular muscles are intact. Anicteric sclera. Moist mucous membranes. Neck: No JVD. No bruit. Cardiovascular: Regular. Positive S-4. Normal S-1 and S-2. No S-3. 3/6 mid to late systolic ejection murmur, greatest at the right sternal border, second intercostal space with radiation to the bilateral carotids. No rubs. Pulmonary: Clear to auscultation bilaterally. No rales, rhonchi, or wheezing. Abdomen: Bowel sounds x 4, soft. No rebound, guarding or tenderness. No organomegaly. Extremities: No clubbing, cyanosis or edema. +2 pedal pulses bilaterally. Skin: Warm and dry. Results & Data ([facility]) Vital Signs (Past 12 Hours) Vital Signs Temp Pulse Pulse Resp BP Pulse Ox 01/15/21 07:44 36.8 C 82 16 195/90 H 94 01/15/21 04:00 36.9 C 74 18 119/75 97 01/15/21 01:45 90 01/15/21 01:32 75 155/80 H 01/14/21 23:00 36.8 C 85 18 190/93 H 97 (1) Altered mental status Altered mental status type: unspecified Qualified Code(s): R41.82 - Altered mental status, unspecified
[2021-01-15] MEDS: INSULIN ASPART 100 UNITS/ML 3 ML PEN SC SCH ×4 (09:02→20:34)
[2021-01-15] MEDS: carvediloL 12.5 MG TAB PO SCH ×2 (09:04→17:25)
[2021-01-15] MEDS: BACLOFEN 10 MG TAB PO SCH (09:04)
[2021-01-15] MEDS: amLODIPine BESYLATE 5 MG TAB PO SCH (09:04)
[2021-01-15] MEDS: ASPIRIN 81 MG ECTAB PO SCH (09:04)
[2021-01-15] MEDS: CLOPIDOGREL BISULFATE 75 MG TAB PO SCH (09:05)
[2021-01-15] MEDS: DOCUSATE SODIUM 100 MG CAP PO SCH ×2 (09:05→20:33)
[2021-01-15 09:11] LABS: INR 2.5 (0.9-1.1); Prothrombin Time 23.5 Seconds (9.0-12.0)
[2021-01-15] MEDS: TAMSULOSIN HCL 0.4 MG CAP PO SCH (09:14)
[2021-01-15] MEDS: lisinopril 10 MG TAB PO SCH (09:14)
[2021-01-15] MEDS: INSULIN GLARGINE SOLOSTAR 100 UNITS/ML 3 ML PEN SC SCH ×2 (09:15→20:35)
[2021-01-15 09:45] LABS: BUN Creatinine Ratio 22.8 (10-20); Calcium 8.3 mg/dl (8.5-10.1); Creatinine Clr Calc Pharmacy 147.9 ml/min; Est GFR (African American) 128.5 ml/min; Est GFR (Non-African American) 110.9 ml/min; Magnesium 1.3 mg/dl (1.8-2.4); Potassium 3.7 mmol/L (3.5-5.1)
[2021-01-15 09:46] LABS: Phosphorus 2.3 mg/dl (2.5-4.9)
[2021-01-15] MEDS: MAGNESIUM SULFATE / D5W 1 GM/100 ML BAG IV SCH ×2 (13:18→15:42)
[2021-01-15] MEDS: POT PHOSPHATE MONOBASIC W/ SOD TAB PO SCH ×3 (13:31→20:31)
--- NOTE | 2021-01-15 16:18 | Communication Note ---
Date of Service: January 15, 2021 Deja is seen today really looks pretty much is intubated sedated with dysarthria some word finding issues a little more hemiparesis and perhaps little more confusion but I do not really have a good baseline on him He had an MRI last night that showed several new embolic infarctions Review of the cardiology consultation indicates that there has been no evidence for atrial fibrillation no evidence for an intracardiac embolic source so a watchman device simply is not going to do much here His INR was elevated and the Coumadin is being held and he is going to be maintained on triple therapy with 2 antiplatelet agents and Coumadin once he gets back in the therapeutic range The working theory is that this was atheromatous plaque from the aorta and his cholesterol and dyslipidemia medications are being changed to stabilize this as best we can medically He is going to need rehabilitation I would suggest a rehabilitation medicine consult be placed Neurology at this point does not have much more to offer other than continued anticoagulation and follow-up in our office in about 4 to 6 weeks allowing time for him to go to rehabilitation and get the maximum benefit Garrick Ansari MD
--- NOTE | 2021-01-15 17:05 | Hospitalist Progress Note ---
Date of Service January 15, 2021 Assessment & Plan (1) Acute confusion: (2) History of CVA (cerebrovascular accident): (3) Supratherapeutic INR: (4) Type 2 diabetes mellitus: Plan: 60-year-old male with PMH of 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 Is being managed in the floor for the following: #. Acute encephalopathy Admitting presentation was confusion with repetitive speech and disorientation Initial concern was TIA versus hypertensive episode. Not a TPA candidate with INR of 3. Patient was taking aspirin, Plavix and Coumadin at home. Admitting EKG: Normal sinus rhythm, heart rate 77, QTc 423, AR 142, possible left atrial enlargement. No significant change from previous EKG. Admitting imagings [CT head, CTA head/neck showed no acute intracranial changes]. Admitting brain MRI: No acute intracranial abnormality. Chronic microvascular ischemic disease with numerous chronic lacunar infarcts. Admitting echo: LVEF 65 to 70% with normal left ventricular systolic function and grade 1 diastolic dysfunction. Severe mitral annular calcification. Severe aortic stenosis-worse than when compared to echo from 12/04/2019. Repeat head CT 01/13 for acute alteration in mental status: No acute intracranial abnormality. Neurology on board: No evidence for seizure [normal EEG]. Plan to repeat MRI 01/14 to follow-up on possible stroke. Recommends inpatient rehab. Cardiology on board: Diffuse atheromatous disease in aorta and peripherally likely source of embolization. Continue with triple therapy. Switch his atorvastatin to rosuvastatin 40 mg daily and consider PCK 9 inhibitor initiation as an outpatient to stabilize plaque. Patient feeling better today, alert and oriented to place, cooperative. Speech evaluated the patient: Recommended diet with aspiration precaution. Continue to monitor, neurochecks. Avoid promethazine. #. Supratherapeutic INR: Patient takes warfarin 7.5 mg p.o. TuThSa and 5 mg p.o. MoWeFrSu. 01/14 INR 4.6: We will hold his warfarin today, repeat INR tomorrow morning Started warfarin at 4 mg today, follow-up with INR. At discharge patient needs close follow-up with Coumadin clinic for warfarin dose adjustment. #. Fever Low grade fever of 37.7 C on admission Recent dental infection, completed course of cefdinir --> no signs and symptoms of dental infection at this point No evidence of opacity on PNA, UA unremarkable No focus of infection so far. 01/11 blood culture: No growth so far. Follow-up with the final culture. WBC WNL, temperatureno spike. Continue to monitor. #. HTN: Concern of hypotension at home. Has maintained high blood pressure while in here. Continue with amlodipine, carvedilol and lisinopril. Continue to monitor. #. 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 #. CAD and PAF: History of CABG x3, carotid artery stenosis, SMA stenosis, PAD. Continue with aspirin, statin, Plavix, Coreg, lisinopril, Coumadin. #. Aortic valve stenosis: Echo: degree of aortic stenosis is worse compared to 11/2019, no intervention per cardiology at this time given recurrent stroke #. Constipation and electrolytes: 01/13 x-ray KUB: Constipation pattern. Continue with as needed MiraLAX and scheduled Colace. Talked with his today at bedside. Answered all questions. Patient understanding, agreeable to plan of care. Disposition: PT recommends SNF [tires easily]. insisting that patient be discharged to [facility] per CM note. Admission and Anticipated Discharge Date Admission Date: January 11, 2021 Subjective Patient was lying in bed, on room air, alert, oriented to place only, cooperative, denies any pain, responds appropriately. Per RN, no issues overnight, patient eating good, bowel movement was yesterday. Patient denied any headache/chills/shortness of breath/fever/belly pain/chest pain/acute changes in bowel bladder habit. Physical Exam Physical Exam: GENERAL: Alert and oriented x place. NAD, on RA. Cooperative. HEENT: No pallor, no icterus. Pupils equal, round and reactive to light. Oral mucosa moist. NECK: No JVD, no neck masses. HEART: S1 and S2 heard. Regular rate and rhythm. Systolic murmur appreciated in aortic and pulmonic area, no gallop. RESPIRATORY SYSTEM: Normal AP diameter. No accessory muscle use. No wheezing, no crackles. ABDOMEN: Soft, bowel sounds present, nontender, no distention. CENTRAL NERVOUS SYSTEM: No facial droop. Speech is clear. Obeys simple commands. Moves extremities. EXTREMITIES: No edema, no erythema seen. Power: Right extremity 3/5, left extremity 5/5 Results & Data Results & Data ([facility]) Vital Signs (Past 12 Hours) Vital Signs Temp Pulse Resp BP Pulse Ox 01/15/21 15:01 36.4 C L 74 16 169/80 H 97 01/15/21 11:55 37.0 C 74 18 159/80 H 97 01/15/21 07:44 36.8 C 82 16 195/90 H 94
[2021-01-15] MEDS: WARFARIN SOD 4 MG TAB PO SCH (17:26)
[2021-01-15] MEDS: ROSUVASTATIN CALCIUM 20 MG TAB PO SCH (20:32)
[2021-01-16 07:36] LABS: INR 1.7 (0.9-1.1); Prothrombin Time 16.9 Seconds (9.0-12.0)
[2021-01-16] MEDS: DOCUSATE SODIUM 100 MG CAP PO SCH ×2 (07:57→21:31)
[2021-01-16] MEDS: CLOPIDOGREL BISULFATE 75 MG TAB PO SCH (07:57)
[2021-01-16] MEDS: lisinopril 10 MG TAB PO SCH (07:58)
[2021-01-16] MEDS: TAMSULOSIN HCL 0.4 MG CAP PO SCH (07:58)
[2021-01-16] MEDS: carvediloL 12.5 MG TAB PO SCH ×2 (07:58→17:06)
[2021-01-16] MEDS: amLODIPine BESYLATE 5 MG TAB PO SCH (07:58)
[2021-01-16] MEDS: POT PHOSPHATE MONOBASIC W/ SOD TAB PO SCH (07:59)
[2021-01-16] MEDS: ASPIRIN 81 MG ECTAB PO SCH (07:59)
[2021-01-16] MEDS: BACLOFEN 10 MG TAB PO SCH (07:59)
[2021-01-16 08:15] LABS: BUN Creatinine Ratio 18.8 (10-20); Calcium 8.6 mg/dl (8.5-10.1); Creatinine Clr Calc Pharmacy 156.5 ml/min; Est GFR (African American) 131.4 ml/min; Est GFR (Non-African American) 113.4 ml/min; Magnesium 1.9 mg/dl (1.8-2.4); Phosphorus 3.4 mg/dl (2.5-4.9); Potassium 3.7 mmol/L (3.5-5.1)
[2021-01-16] MEDS: INSULIN GLARGINE SOLOSTAR 100 UNITS/ML 3 ML PEN SC SCH (08:28)
[2021-01-16] MEDS: hydroCHLOROthiazide 25 MG TAB PO SCH (08:28)
[2021-01-16] MEDS: INSULIN ASPART 100 UNITS/ML 3 ML PEN SC SCH ×4 (08:29→21:29)
[2021-01-16] MEDS ORDERED: PHARMACY GLYCEMIC MGMT CONSULT PRN (12:59)
--- NOTE | 2021-01-16 13:04 | Hospitalist Progress Note ---
Date of Service January 16, 2021 Assessment & Plan (1) Acute confusion: (2) History of CVA (cerebrovascular accident): (3) Supratherapeutic INR: (4) Type 2 diabetes mellitus: Plan: 60-year-old male with PMH of 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 Is being managed in the floor for the following: #. Acute encephalopathy Admitting presentation was confusion with repetitive speech and disorientation Initial concern was TIA versus hypertensive episode. Not a tPA candidate with INR of 3. Patient was taking aspirin, Plavix and Coumadin at home. Admitting EKG: Normal sinus rhythm, heart rate 77, QTc 423, NE 142, possible left atrial enlargement. No significant change from previous EKG. Admitting imagings [CT head, CTA head/neck showed no acute intracranial changes]. Admitting brain MRI: No acute intracranial abnormality. Chronic microvascular ischemic disease with numerous chronic lacunar infarcts. Repeat MRI 01/14: punctate foci of restricted diffusion identified within the periventricular left occipital lobe and within the left cerebellum consistent with tiny acute to subacute infarcts. Admitting echo: LVEF 65 to 70% with normal left ventricular systolic function and grade 1 diastolic dysfunction. Severe mitral annular calcification. Severe aortic stenosis-worse than when compared to echo from 12/04/2019. Repeat head CT 01/13 for acute alteration in mental status: No acute intracranial abnormality. Neurology on board: No evidence for seizure [normal EEG]. Recommends inpatient rehab. Follow-up with neurology in 4 to 6 weeks. Cardiology on board: Diffuse atheromatous disease in aorta and peripherally likely source of embolization. Continue with triple therapy. Switch his atorvastatin to rosuvastatin 40 mg daily and consider PCK 9 inhibitor initiation as an outpatient to stabilize plaque. Maintain follow-up with cardiology upon discharge. Patient at baseline, alert and oriented to place and person, cooperative. Speech evaluated the patient: Recommended diet with aspiration precaution. Continue to monitor, neurochecks. Avoid promethazine. Awaiting rehab placement, PT to evaluate him today again. #. Supratherapeutic INR: Patient takes warfarin 7.5 mg p.o. TuThSa and 5 mg p.o. MoWeFrSu. 01/14 INR 4.6: Started warfarin at 4 mg 01/15, follow-up with daily INR. At discharge patient needs close follow-up with Coumadin clinic for warfarin dose adjustment. #. Fever Low grade fever of 37.7 C on admission Recent dental infection, completed course of cefdinir --> no signs and symptoms of dental infection at this point No evidence of opacity on PNA, UA unremarkable No focus of infection so far. 01/11 blood culture: No growth so far. Follow-up with the final culture. WBC WNL, temperatureno spike. Continue to monitor. #. HTN: Concern of hypotension at home. Has maintained high blood pressure while in here. Continue with amlodipine, carvedilol and lisinopril. Continue to monitor. #. 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 Blood sugar not controlled, glycemic pharmacy consulted. #. CAD and PAF: History of CABG x3, carotid artery stenosis, SMA stenosis, PAD. Continue with aspirin, statin, Plavix, Coreg, lisinopril, Coumadin. #. Aortic valve stenosis: Echo: degree of aortic stenosis is worse compared to 11/2019, no intervention per cardiology at this time given recurrent stroke #. Constipation and electrolytes: 01/13 x-ray KUB: Constipation pattern. Continue with as needed MiraLAX and scheduled Colace. Patient's updated. Answered all questions. Patient understanding, agreeable to plan of care. Disposition: PT recommends SNF [tires easily]. insisting that patient be discharged to [facility] per note. PT re-eval today. Likely stay in the hospital through the weekend. Admission and Anticipated Discharge Date Admission Date: January 11, 2021 Subjective Patient was lying in bed semiupright, on room air, alert, oriented to place and person only, cooperative, denies any pain, responds appropriately. Per RN, no issues overnight, patient eating good, bowel movement was yesterday. Patient denied any headache/chills/shortness of breath/fever/belly pain/chest pain/acute changes in bowel bladder habit. Physical Exam Physical Exam: GENERAL: Alert and oriented x place. NAD, on RA. Cooperative. HEENT: No pallor, no icterus. Pupils equal, round and reactive to light. Oral mucosa moist. NECK: No JVD, no neck masses. HEART: S1 and S2 heard. Regular rate and rhythm. Systolic murmur appreciated in aortic and pulmonic area, no gallop. RESPIRATORY SYSTEM: Normal AP diameter. No accessory muscle use. No wheezing, no crackles. ABDOMEN: Soft, bowel sounds present, nontender, no distention. CENTRAL NERVOUS SYSTEM: No facial droop. Speech is clear. Obeys simple commands. Moves extremities. EXTREMITIES: No edema, no erythema seen. Power: Right upper extremity 3/5, right lower extremity 2/5, left extremity 5/5 Results & Data Results & Data ([facility]) Vital Signs (Past 12 Hours) Vital Signs Temp Pulse Resp BP Pulse Ox 01/16/21 11:43 36.6 C 81 18 142/78 H 97 01/16/21 07:00 36.6 C 86 20 194/76 H 97 01/16/21 03:07 36.9 C 73 16 144/78 H 97
[2021-01-16] MEDS ORDERED: INSULIN GLARGINE SOLOSTAR 100 UNITS/ML 3 ML PEN SC ONE (13:45)
--- NOTE | 2021-01-16 13:48 | Pharmacy Report ---
Pharmacy Glycemic Short Note 2 - Date of Service January 16, 2021 - Glycemic Short BSG Results (Last 24 hours): 01/15/21 01/15/21 01/16/21 16:44 20:07 06:48 Glucose 192 H POC Glucose 186 H 205 H 01/16/21 01/16/21 07:34 11:30 Glucose POC Glucose 211 H 229 H OUTPATIENT ANTIDIABETIC REGIMEN: * NovoLog with meals - 10 units breakfast, 9 units lunch, 9 units dinner * Lantus 14 units AM, 10 units PM * Metformin 500mg PO BID ASSESSMENT: * 60 year old admitted with acute encephalopathy, type 2 diabetic, blood sugars above goal, pharmacy consulted for glycemic management * Patient on basal bolus therapy, just at insufficient doses, will titrate doses up to goal blood sugar PLAN FOR INPATIENT GLYCEMIC CONTROL: * Hold outpatient oral diabetes medications * Basal insulin * Lantus 10 units SQ x 1 dose now then * SQ BID: 12 units BSG < 140, 15 units BSG 140 or greater * Bolus insulin * NovoLog per scale ACHS or Q6hrs while NPO * Goal Range: Low 110 mg/dL - High 140 mg/dL * Correction Factor: 20 mg/dL/unit * Nutritional / Prandial insulin per carb ratio of 1 unit per 7 grams CHO consumed PLAN FOR DISCHARGE: * A1c 6.9%, continue outpatient regimen as long as not experiencing hypoglycemia at home
--- NOTE | 2021-01-16 14:15 | Cardiology Progress Note ---
Date of Service January 16, 2021 Assessment & Plan (1) History of CVA (cerebrovascular accident): (2) Weakness: (3) Altered mental status: (4) Status post cerebrovascular accident: (5) CAD (coronary artery disease): (6) Aortic valve stenosis: (7) Type 2 diabetes mellitus: (8) Peripheral arterial disease: Plan: Unfortunately he has sustained another CVA despite already being on triple therapy. No cardiac source for embolization found. Patient with diffuse atheromatous disease noted throughout his aorta and periphery, likely source of embolization. Already on Coumadin. From a cardiac standpoint the only recommendations I can make at this time would be to switch his atorvastatin to rosuvastatin 40 mg daily and consider PCSK9 inhibitor initiation as an outpatient to stabilize plaque No further cardiac testing necessary at this time Severe aortic stenosis but no indication for intervention at this time especially given recurrent CVAs. Admission and Anticipated Discharge Date Admission Date: January 11, 2021 Subjective Patient seen examined, chart reviewed. He remains somewhat confused but denies any complaints specifically denying any chest pain, shortness of breath, palpitations, lightheadedness, dizziness or syncope. Telemetry reviewed: Normal sinus rhythm with frequent supraventricular ectopy, no sustained arrhythmias. Review of Systems Review of Systems: Unobtainable due to cognitive status Physical Exam Physical Exam: General: Awake, alert and oriented x 3. No acute distress. HEENT: Normocephalic, atraumatic. Pupils equal, round and reactive to light and accommodation. Extraocular muscles are intact. Anicteric sclera. Moist mucous membranes. Neck: No JVD. No bruit. Cardiovascular: Regular. Positive S-4. Normal S-1 and S-2. No S-3. 3/6 mid to late systolic ejection murmur, greatest at the right sternal border, second intercostal space with radiation to the bilateral carotids. No rubs. Pulmonary: Clear to auscultation bilaterally. No rales, rhonchi, or wheezing. Abdomen: Bowel sounds x 4, soft. No rebound, guarding or tenderness. No organomegaly. Extremities: No clubbing, cyanosis or edema. +2 pedal pulses bilaterally. Skin: Warm and dry. Results & Data ([facility]) Vital Signs (Past 12 Hours) Vital Signs Temp Pulse Resp BP Pulse Ox 01/16/21 11:43 36.6 C 81 18 142/78 H 97 01/16/21 07:00 36.6 C 86 20 194/76 H 97 01/16/21 03:07 36.9 C 73 16 144/78 H 97 (1) Altered mental status Altered mental status type: unspecified Qualified Code(s): R41.82 - Altered mental status, unspecified
[2021-01-16] MEDS: WARFARIN SOD 4 MG TAB PO SCH (17:06)
[2021-01-16] MEDS ORDERED: INSULIN GLARGINE SOLOSTAR 100 UNITS/ML 3 ML PEN SC SCH (21:00)
[2021-01-16] MEDS: ROSUVASTATIN CALCIUM 20 MG TAB PO SCH (21:31)
[2021-01-17 07:03] LABS: INR 1.9 (0.9-1.1); Prothrombin Time 18.4 Seconds (9.0-12.0)
[2021-01-17] MEDS: lisinopril 10 MG TAB PO SCH (09:01)
[2021-01-17] MEDS: TAMSULOSIN HCL 0.4 MG CAP PO SCH (09:01)
[2021-01-17] MEDS: amLODIPine BESYLATE 5 MG TAB PO SCH (09:01)
[2021-01-17] MEDS: ASPIRIN 81 MG ECTAB PO SCH (09:01)
[2021-01-17] MEDS: BACLOFEN 10 MG TAB PO SCH (09:01)
[2021-01-17] MEDS: DOCUSATE SODIUM 100 MG CAP PO SCH ×2 (09:01→21:10)
[2021-01-17] MEDS: CLOPIDOGREL BISULFATE 75 MG TAB PO SCH (09:01)
[2021-01-17] MEDS: carvediloL 12.5 MG TAB PO SCH ×2 (09:01→17:02)
[2021-01-17] MEDS: hydroCHLOROthiazide 25 MG TAB PO SCH (09:02)
[2021-01-17] MEDS: INSULIN GLARGINE SOLOSTAR 100 UNITS/ML 3 ML PEN SC SCH ×2 (09:04→21:14)
[2021-01-17] MEDS: INSULIN ASPART 100 UNITS/ML 3 ML PEN SC SCH ×4 (09:06→21:12)
--- NOTE | 2021-01-17 10:31 | Pharmacy Report ---
Pharmacy Glycemic Short Note 2 - Date of Service January 17, 2021 - Glycemic Short BSG Results (Last 24 hours): 01/16/21 01/16/21 01/16/21 11:30 16:38 20:36 POC Glucose 229 H 174 H 230 H 01/17/21 07:53 POC Glucose 156 H OUTPATIENT ANTIDIABETIC REGIMEN: * NovoLog with meals - 10 units breakfast, 9 units lunch, 9 units dinner * Lantus 14 units AM, 10 units PM * Metformin 500mg PO BID ASSESSMENT: 01/17 * Pt has received 58 units of insulin over the past 24hrs * 34 units of basal with Lantus * 24 units of bolus with NovoLog * AM fasting BSG trending towards goal range with 34 units of basal insulin on board. Will continue this dosing x 1 more day in anticipation that AM fasting BSG will continue to trend downwards tomorrow. Will evenly split dosing to Lantus 17 units SQ BID * No change needed to CF/CR. 01/16 * 60 year old admitted with acute encephalopathy, type 2 diabetic, blood sugars above goal, pharmacy consulted for glycemic management * Patient on basal bolus therapy, just at insufficient doses, will titrate doses up to goal blood sugar PLAN FOR INPATIENT GLYCEMIC CONTROL: * Hold outpatient oral diabetes medications * Basal insulin * Lantus 17 units SQ BID * Bolus insulin * NovoLog per scale ACHS or Q6hrs while NPO * Goal Range: Low 110 mg/dL - High 140 mg/dL * Correction Factor: 20 mg/dL/unit * Nutritional / Prandial insulin per carb ratio of 1 unit per 7 grams CHO consumed PLAN FOR DISCHARGE: * A1c 6.9%, continue outpatient regimen as long as not experiencing hypoglycemia at home
[2021-01-17] MEDS ORDERED: INSULIN GLARGINE SOLOSTAR 100 UNITS/ML 3 ML PEN SC SCH (11:30)
--- NOTE | 2021-01-17 13:24 | Cardiology Progress Note ---
Date of Service January 17, 2021 Assessment & Plan (1) History of CVA (cerebrovascular accident): (2) Weakness: (3) Altered mental status: (4) Status post cerebrovascular accident: (5) CAD (coronary artery disease): (6) Aortic valve stenosis: (7) Type 2 diabetes mellitus: (8) Peripheral arterial disease: Plan: Unfortunately he has sustained another CVA despite already being on triple therapy. No cardiac source for embolization found. Patient with diffuse atheromatous disease noted throughout his aorta and periphery, likely source of embolization. Already on Coumadin. From a cardiac standpoint the only recommendations I can make at this time would be to switch his atorvastatin to rosuvastatin 40 mg daily and consider PCSK9 inhibitor initiation as an outpatient to stabilize plaque No further cardiac testing necessary at this time Severe aortic stenosis but no indication for intervention at this time especially given recurrent CVAs. Okay for discharge, currently awaiting placement. Okay to DC telemetry. Admission and Anticipated Discharge Date Admission Date: January 11, 2021 Subjective Patient seen examined, chart reviewed. He is much more alert today and answering questions appropriately. He denies any complaints specifically denying any chest pain, shortness of breath, palpitations, lightheadedness, dizziness or syncope. Telemetry reviewed: Normal sinus rhythm with frequent supraventricular ectopy, no sustained arrhythmias. Review of Systems Review of Systems: Unobtainable due to cognitive status Physical Exam Physical Exam: General: Awake, alert and oriented x 3. No acute distress. HEENT: Normocephalic, atraumatic. Pupils equal, round and reactive to light and accommodation. Extraocular muscles are intact. Anicteric sclera. Moist mucous membranes. Neck: No JVD. No bruit. Cardiovascular: Regular. Positive S-4. Normal S-1 and S-2. No S-3. 3/6 mid to late systolic ejection murmur, greatest at the right sternal border, second intercostal space with radiation to the bilateral carotids. No rubs. Pulmonary: Clear to auscultation bilaterally. No rales, rhonchi, or wheezing. Abdomen: Bowel sounds x 4, soft. No rebound, guarding or tenderness. No organomegaly. Extremities: No clubbing, cyanosis or edema. +2 pedal pulses bilaterally. Skin: Warm and dry. Results & Data ([facility]) Vital Signs (Past 12 Hours) Vital Signs Temp Pulse Pulse Resp BP Pulse Ox 01/17/21 11:12 37.1 C 73 18 117/74 95 01/17/21 08:00 36.4 C L 81 18 142/82 H 97 01/17/21 07:12 69 01/17/21 02:52 36.6 C 70 17 106/70 96 (1) Altered mental status Altered mental status type: unspecified Qualified Code(s): R41.82 - Altered mental status, unspecified
--- NOTE | 2021-01-17 15:20 | Hospitalist Progress Note ---
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 Is being managed in the floor for the following: #. Acute encephalopathy Admitting presentation was confusion with repetitive speech and disorientation Initial concern was TIA versus hypertensive episode. Not a tPA candidate with INR of 3. Patient was taking aspirin, Plavix and Coumadin at home. Admitting EKG: Normal sinus rhythm, heart rate 77, QTc 423, NV 142, possible left atrial enlargement. No significant change from previous EKG. Admitting imagings [CT head, CTA head/neck showed no acute intracranial changes]. Admitting brain MRI: No acute intracranial abnormality. Chronic microvascular ischemic disease with numerous chronic lacunar infarcts. Repeat MRI 01/14: punctate foci of restricted diffusion identified within the periventricular left occipital lobe and within the left cerebellum consistent with tiny acute to subacute infarcts. Admitting echo: LVEF 65 to 70% with normal left ventricular systolic function and grade 1 diastolic dysfunction. Severe mitral annular calcification. Severe aortic stenosis-worse than when compared to echo from 12/04/2019. Repeat head CT 01/13 for acute alteration in mental status: No acute intracranial abnormality. Neurology on board: No evidence for seizure [normal EEG]. Recommends inpatient rehab. Follow-up with neurology in 4 to 6 weeks. Cardiology on board: Diffuse atheromatous disease in aorta and peripherally likely source of embolization. Continue with triple therapy. Switch his atorvastatin to rosuvastatin 40 mg daily and consider PCK 9 inhibitor initiation as an outpatient to stabilize plaque. Maintain follow-up with cardiology upon discharge. Patient close to baseline, alert and oriented to place, cooperative. Speech evaluated the patient: Recommended diet with aspiration precaution. Continue to monitor, neurochecks. Avoid promethazine. Awaiting rehab placement #. Supratherapeutic INR: Patient takes warfarin 7.5 mg p.o. TuThSa and 5 mg p.o. MoWeFrSu. 01/14 INR 4.6: Started warfarin at 4 mg 01/15, follow-up with daily INR. At discharge patient needs close follow-up with Coumadin clinic for warfarin dose adjustment. #. Fever Low grade fever of 37.7 C on admission Recent dental infection, completed course of cefdinir --> no signs and symptoms of dental infection at this point No evidence of opacity on PNA, UA unremarkable No focus of infection so far. 01/11 blood culture: No growth so far. Follow-up with the final culture. WBC WNL, temperatureno spike. Continue to monitor. #. HTN: Concern of hypotension at home. Has maintained high blood pressure while in here. Continue with amlodipine, carvedilol and lisinopril. Continue to monitor. #. 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 Blood sugar not controlled, glycemic pharmacy consulted. #. CAD and PAF: History of CABG x3, carotid artery stenosis, SMA stenosis, PAD. Continue with aspirin, statin, Plavix, Coreg, lisinopril, Coumadin. #. Aortic valve stenosis: Echo: degree of aortic stenosis is worse compared to 11/2019, no intervention per cardiology at this time given recurrent stroke #. Constipation and electrolytes: 01/13 x-ray KUB: Constipation pattern. Continue with as needed MiraLAX and scheduled Colace. Patient's updated. Answered all questions. Patient understanding, agreeable to plan of care. Disposition: PT reevaluated for placement. insisting that patient be discharged to [facility] per CM note. Per CM, likely will be accepted tomorrow to [facility]. When gets placement, patient is ready to go unless he develops new issues. Admission and Anticipated Discharge Date Admission Date: January 11, 2021 Subjective Patient was lying in bed semiupright, on room air, alert, oriented to place only, cooperative, denies any pain, responds appropriately. Patient eating good, bowel movement was yesterday. Patient denied any headache/chills/shortness of breath/fever/belly pain/chest pain/acute changes in bowel bladder habit. Looks similar/slightly on downside to yesterday. Physical Exam Physical Exam: GENERAL: Alert and oriented x place. NAD, on RA. Cooperative. HEENT: No pallor, no icterus. Pupils equal, round and reactive to light. Oral mucosa moist. NECK: No JVD, no neck masses. HEART: S1 and S2 heard. Regular rate and rhythm. Systolic murmur appreciated in aortic and pulmonic area, no gallop. RESPIRATORY SYSTEM: Normal AP diameter. No accessory muscle use. No wheezing, no crackles. ABDOMEN: Soft, bowel sounds present, nontender, no distention. CENTRAL NERVOUS SYSTEM: No facial droop. Speech is clear. Obeys simple commands. Moves extremities. EXTREMITIES: No edema, no erythema seen. Power: Right upper extremity 3/5, right lower extremity 2/5, left extremity 5/5 Results & Data Results & Data ([facility]) Vital Signs (Past 12 Hours) Vital Signs Temp Pulse Pulse Resp BP Pulse Ox 01/17/21 11:12 37.1 C 73 18 117/74 95 01/17/21 08:00 36.4 C L 81 18 142/82 H 97 01/17/21 07:12 69
[2021-01-17] MEDS: WARFARIN SOD 4 MG TAB PO SCH (17:01)
[2021-01-17] MEDS: ROSUVASTATIN CALCIUM 20 MG TAB PO SCH (21:11)
[2021-01-18 06:54] LABS: INR 1.9 (0.9-1.1); Prothrombin Time 18.5 Seconds (9.0-12.0)
[2021-01-18 07:07] LABS: Calcium 8.6 mg/dl (8.5-10.1); Creatinine Clr Calc Pharmacy 123.6 ml/min; Est GFR (African American) 120.1 ml/min; Est GFR (Non-African American) 103.6 ml/min; Phosphorus 3.6 mg/dl (2.5-4.9); Potassium 3.5 mmol/L (3.5-5.1)
[2021-01-18] MEDS: amLODIPine BESYLATE 5 MG TAB PO SCH (09:26)
[2021-01-18] MEDS: carvediloL 12.5 MG TAB PO SCH (09:26)
[2021-01-18] MEDS: ASPIRIN 81 MG ECTAB PO SCH (09:26)
[2021-01-18] MEDS: CLOPIDOGREL BISULFATE 75 MG TAB PO SCH (09:27)
[2021-01-18] MEDS: hydroCHLOROthiazide 25 MG TAB PO SCH (09:27)
[2021-01-18] MEDS: BACLOFEN 10 MG TAB PO SCH (09:27)
[2021-01-18] MEDS: lisinopril 10 MG TAB PO SCH (09:28)
[2021-01-18] MEDS: TAMSULOSIN HCL 0.4 MG CAP PO SCH (09:28)
[2021-01-18] MEDS: DOCUSATE SODIUM 100 MG CAP PO SCH (09:28)
[2021-01-18] MEDS: INSULIN GLARGINE SOLOSTAR 100 UNITS/ML 3 ML PEN SC SCH (09:30)
[2021-01-18] MEDS: INSULIN ASPART 100 UNITS/ML 3 ML PEN SC SCH ×2 (09:30→13:14)
--- NOTE | 2021-01-18 18:52 | Discharge Summary ---
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 Seemed confused following lunch today at 1:30pm. Seemed confused and was repeating "yes," "okay", "alright" in response to every question, per , which is not his baseline. Thought he may be hypoglycemic and checked BSG which was elevated. Has residual R hemiparesis and dysphasia from previous stroke. Is on aspirin, plavix and coumadin. Brought into ED for further evaluation. Unable to obtain ROS due to confusion. Recently completed cefdinir course for dental infection. Admission Exam Per Admitting Provider GENERAL: AO x0, confused, replies yes and okay to every question, no facial symmetry or slurring of speech. Unable to cooperate. On RA. HEENT: No pallor, no icterus. Pupils equal, round and reactive to light. Oral mucosa moist. NECK: No JVD, no neck masses. HEART: S1 and S2 heard. Regular rate and rhythm. No murmur, no gallop. RESPIRATORY SYSTEM: Normal AP diameter. No accessory muscle use. No wheezing, no crackles. ABDOMEN: Soft, bowel sounds present, no distention. CENTRAL NERVOUS SYSTEM: No facial droop. Right-sided paresis noted. Moved extremities on the left side during the bedside examination but could not assess strength/sensation. EXTREMITIES: No edema, no erythema seen. Had compression stockings on. Had foot support on the right side for foot drop. Principal Diagnosis Acute encephalopathy Stroke x left occipital lobe and left cerebellum Supratherapeutic INR Dyslipidemia Diabetes mellitus Discharge Exam GENERAL: Alert and oriented x place. NAD, on RA. Cooperative. HEENT: No pallor, no icterus. Pupils equal, round and reactive to light. Oral mucosa moist. NECK: No JVD, no neck masses. HEART: S1 and S2 heard. Regular rate and rhythm. Systolic murmur appreciated in aortic and pulmonic area, no gallop. RESPIRATORY SYSTEM: Normal AP diameter. No accessory muscle use. No wheezing, no crackles. ABDOMEN: Soft, bowel sounds present, nontender, no distention. CENTRAL NERVOUS SYSTEM: No facial droop. Speech is clear. Obeys simple commands. Moves extremities. EXTREMITIES: No edema, no erythema seen. Power: Right upper extremity 3/5, right lower extremity 3/5, left extremity 5/5 Discharge Data Allergies Allergy/AdvReac Type Severity Reaction Status Date / Time No Known Allergies Allergy Verified 01/11/21 17:11 Consultations 01/11/21 17:24 ED Decision to Admit Stat 01/11/21 21:20 Consult Neurology Routine 01/14/21 17:59 Consult Cardiology Routine Ordered Studies 01/11/21 16:00 CT angio head w con Stat CT angio neck with con Stat CT head/brain wo con Stat 01/11/21 21:20 MR brain wo/w con Routine 01/13/21 12:47 CT head/brain wo con Stat 01/14/21 15:57 MR brain wo con Routine Hospital Course (1) Acute confusion: (2) History of CVA (cerebrovascular accident): (3) Supratherapeutic INR: (4) Type 2 diabetes mellitus: 60-year-old male with PMH of 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 Is being managed in the floor for the following: #. Acute encephalopathy Admitting presentation was confusion with repetitive speech and disorientation Initial concern was TIA versus hypertensive episode. Not a tPA candidate with INR of 3. Patient was taking aspirin, Plavix and Coumadin at home. Admitting EKG: Normal sinus rhythm, heart rate 77, QTc 423, ND 142, possible left atrial enlargement. No significant change from previous EKG. Admitting imagings [CT head, CTA head/neck showed no acute intracranial changes]. Admitting brain MRI: No acute intracranial abnormality. Chronic microvascular ischemic disease with numerous chronic lacunar infarcts. Repeat MRI 01/14: punctate foci of restricted diffusion identified within the periventricular left occipital lobe and within the left cerebellum consistent with tiny acute to subacute infarcts. Admitting echo: LVEF 65 to 70% with normal left ventricular systolic function and grade 1 diastolic dysfunction. Severe mitral annular calcification. Severe aortic stenosis-worse than when compared to echo from 12/04/2019. Repeat head CT 01/13 for acute alteration in mental status: No acute intracranial abnormality. Neurology on board: No evidence for seizure [normal EEG]. Recommends inpatient rehab. Follow-up with neurology in 4 to 6 weeks. Cardiology on board: Diffuse atheromatous disease in aorta and peripherally likely source of embolization. Continue with triple therapy. Switch his atorvastatin to rosuvastatin 40 mg daily and consider PCK 9 inhibitor initiation as an outpatient to stabilize plaque. Maintain follow-up with cardiology upon discharge. Patient close to baseline, alert and oriented to place, cooperative. Speech evaluated the patient: Recommended diet with aspiration precaution. Patient is continued physical therapy for better outcome. Patient getting discharged to [facility] today, patient's called and updated about the plan of care, she is understanding and agreeable to it. #. Supratherapeutic INR: Patient takes warfarin 7.5 mg p.o. TuThSa and 5 mg p.o. MoWeFrSu. 01/14 INR 4.6: Started warfarin at 4 mg 01/15, INR on the day of discharge 1.9. Patient's updated the need for repeat INR in 2 to 3 days and follow-up with Coumadin clinic closely for dose readjustment. Forward the results to PCP/Coumadin clinic. At discharge patient needs close follow-up with Coumadin clinic for warfarin dose adjustment. #. Fever One-time episode on the day of admission, no foci of infection noted. #. HTN: Under control, continue with home medications #. DM II: A1c 6.12 January 2021, patient started on his home medication upon discharge. #. CAD and PAF: History of CABG x3, carotid artery stenosis, SMA stenosis, PAD. Continue with aspirin, statin, Plavix, Coreg, lisinopril, Coumadin. #. Aortic valve stenosis: Echo: degree of aortic stenosis is worse compared to 11/2019, no intervention per cardiology at this time given recurrent stroke #. Constipation and electrolytes: 01/13 x-ray KUB: Constipation pattern. Continue with as needed MiraLAX and scheduled Colace. Patient's updated. Answered all questions. Patient understanding, agreeable to plan of care. Disposition: Patient getting discharged to [facility] with following instruction: -Stroke care instructions -Follow-up with your primary care physician within a week time. -Follow-up with your neurology in 4 to 6 weeks time. -Since your INR was elevated at presentation, your warfarin has been decreased to 4 mg daily, INR on the day of discharge is 1.9, get a PT/INR in 3 days, forward the result to your PCP/Coumadin clinic. Maintain close follow-up with the Coumadin clinic for Coumadin dose adjustment. -Your atorvastatin has been changed to Crestor. You might need evaluation for additional lipid-lowering medication. Maintain follow-up with the PCP/cardiology. -Continue with medications as prescribed. . Total Time Total Time Spent Total Time Spent (In Minutes): 55 Discharge Plan Discharge Items Patient Disposition: Transfer Inpatient Rehab Fac Reason For Visit: CONFUSION Discharge Diagnosis: Acute encephalopathy Stroke x left occipital lobe and left cerebellum Supratherapeutic INR Dyslipidemia Diabetes mellitus Activity: Resume your previous activity Non-emergency contact: Primary Care Provider Call non-emergency contact if: you have any medication questions and your symptoms worsen Follow-up/Referrals: Dereck Zaman, DO [Primary Care Provider] - Diet: Carb Consistent or DM2 and Heart Healthy Addtl Attending Provider Instructions: Risk Factors for Stroke: You can reduce your chances of stroke by working with your medical provider to adopt a healthy lifestyle. Some specific ways to lower your chance of stroke are: * If you are a smoker, now is the time to stop smoking cigarettes * If you are diabetic, improve the control of your blood sugars * Avoid excessive amounts of alcohol * Control high blood pressure * Lose weight if you are overweight * Be sure to lead an active lifestyle * Eat a healthy diet low in salt, cholesterol and fat You should know about other risk factors for stroke that you are unable to control. These include: * Age 55 years or older * Male gender * Certain racial groups: , or / * Family History of Stroke, Mini stroke or Heart Attack * Sickle Cell Disease Follow Up: It is important for you to keep your follow up appointments with your medical provider. Who to Call and When: Medical Emergencies: Call 911 immediately if you experience any of the following warning signs and symptoms of Stroke: * Sudden numbness or weakness of the face, arm or leg, especially on one side of the body * Sudden confusion, trouble speaking or understanding * Sudden trouble seeing in one or both eyes * Sudden trouble walking, dizziness, loss of balance or coordination * Sudden severe headache with no cause Do not delay calling 911 if you experience any warning signs or symptoms of a stroke. Delay in seeking medical attention may affect what treatments can be given to you. . Additional instruction: -Follow-up with your primary care physician within a week time. -Follow-up with your neurology in 4 to 6 weeks time. -Since your INR was elevated at presentation, your warfarin has been decreased to 4 mg daily, INR on the day of discharge is 1.9, get a PT/INR in 3 days, forward the result to your PCP/Coumadin clinic. Maintain close follow-up with the Coumadin clinic for Coumadin dose adjustment. -Your atorvastatin has been changed to Crestor. You might need evaluation for additional lipid-lowering medication. Maintain follow-up with the PCP/cardiology. -Continue with medications as prescribed. Pending Studies at Discharge: No Stand-Alone Forms: My [facility] [employer] Skilled Items Patient informed of condition?: Yes DNR: No Discharge Level of Care: Acute rehab Communicable Disease: No Discharge Prognosis: Stable Lines: None Urinary Catheter: No Medications and DC Order Prescriptions: New warfarin [Jantoven] 4 mg Tablet 4 mg PO DAILY@1600 30 Days Qty: 30 RF: 0 rosuvastatin [Crestor] 20 mg Tablet 40 mg PO HS 30 Days Qty: 60 RF: 0 docusate sodium 100 mg Capsule 100 mg PO BID 10 Days Qty: 20 RF: 0 Continued nitroglycerin 0.4 mg tablet, sublingual 0.4 mg sublingual DIRECTED PRN (Reason: Chest Pain) RF: 0 insulin aspart U-100 [Novolog U-100 Insulin aspart] 100 unit/mL solution 9 unit subcut .AC LUNCH & SUPPER RF: 0 tamsulosin 0.4 mg capsule 0.4 mg PO DAILY RF: 0 insulin aspart U-100 [Novolog U-100 Insulin aspart] 100 unit/mL solution 10 unit SUBCUT QAM RF: 0 metformin 1,000 mg tablet 500 mg PO BID RF: 0 carvedilol 12.5 mg tablet 12.5 mg PO BID Qty: 60 RF: 0 Lantus U-100 Insulin 100 unit/mL solution See Rx Instructions .ROUTE .COMPLEX Qty: 10 RF: 0 clopidogrel [Plavix] 75 mg tablet 75 mg PO QAM Qty: 30 RF: 0 amlodipine [Norvasc] 5 mg tablet 5 mg PO QAM Qty: 30 RF: 0 aspirin 81 mg Tablet,Delayed Release (Dr/Ec) 81 mg PO QAM Qty: 30 RF: 0 lisinopril 30 mg tablet 30 mg PO DAILY Qty: 30 RF: 0 ondansetron 4 mg tablet,disintegrating 4 mg PO Q4H PRN (Reason: Nausea) Qty: 10 RF: 0 baclofen 5 mg tablet 5 mg PO QAM Qty: 30 RF: 0 Discontinued warfarin 5 mg tablet 7.5 mg PO TUTHSA RF: 0 warfarin 5 mg tablet 5 mg PO .MOWEFRSU RF: 0 atorvastatin [Lipitor] 80 mg tablet 80 mg PO HS Qty: 30 RF: 0 Discharge Orders: Discharge Order (Routine); Ordered 01/18/21 Ordered By: Dave Santana Admission Data Admit Date/Time: 01/11/21 17:49 Attending Provider: Dave Santana Admit Provider: Dave Santana Primary Care Provider: Dereck Zaman Other Providers: [facility] ; Dave Santana ; Garrick Ansari ; Alexei Aldrich Other Interventions: Discharge Summary Assessment (RN) Last Done: 01/18/21 14:29
== END 2021-01-18 14:50 | DRG 65 ==
LOC: ED 15:44 → SUATTDRO 17:49 → 2N 17:49 → 3N 01-17 15:20

== ENCOUNTER 2021-05-17 14:21 | Inpatient (IN) ==
[2021-05-17] MEDS ORDERED: ONDANSETRON INJ 2 MG/ML 2 ML VIAL IV STA (14:33)
--- NOTE | 2021-05-17 14:35 | Emergency Department Note ---
History of Present Illness General Chief complaint: Illness Stated complaint: SYNCOPE Time Seen by Provider: 05/17/21 14:23 Source: patient, family and EMS Mode of arrival: EMS History of Present Illness Provider complaint: Near syncopal episode Onset (ago): minute(s) Location: head Pain Consistency: + now resolved Quality: + other (Decreased responsiveness, pale and diaphoretic) Relieved By: + other (After vomiting) Associated symptoms: + diaphoresis and + nausea/vomiting; no chest pain, no cough, no fever/chills, no headaches, no shortness of breath or no syncope This is a 61-year-old male who is wheelchair-bound due to prior CVA presenting with a near syncopal episode today. The patient's provides most of the history. She states that she gave him his dose of Lantus and gave him lunch. After he had lunch he appeared quite pale and diaphoretic. He was not passed out but less responsive. She immediately called EMS. She checked his blood sugar and it was over 100. When the grinder operator surface tool arrived they stated that he was pale and diaphoretic and his blood pressure was 70 systolic. He then threw up and had a bowel movement and his heart rate went down to 20. He then appeared to return to his baseline state according to his . He denies any headache, chest pain, abdominal pain or difficulty breathing. His states that he did not fall as he was secured to his wheelchair. He has had no recent falls. He has had no fevers or cough or cold symptoms. She has not noticed any black or bloody stools. There is no blood in his vomitus. She is not sure about his ur ination as he wears a diaper all the time. He is on Coumadin for paroxysmal atrial fibrillation. Home Medications Medication Instructions Recorded Confirmed Type nitroglycerin 0.4 mg sublingual 0.4 mg SUBLINGUAL DIRECTED PRN 08/09/19 05/17/21 History tablet amlodipine 5 mg tablet (Norvasc) 5 mg PO QAM #30 tab 09/22/20 05/17/21 Rx aspirin 81 mg tablet,delayed 81 mg PO QAM #30 tab 09/22/20 05/17/21 Rx release baclofen 5 mg tablet 5 mg PO QAM #30 tab 09/22/20 05/17/21 Rx carvedilol 12.5 mg tablet 12.5 mg PO BID #60 tab 09/22/20 05/17/21 Rx clopidogrel 75 mg tablet (Plavix) 75 mg PO QAM #30 tab 09/22/20 05/17/21 Rx insulin glargine 100 unit/mL See Rx Instructions .ROUTE 09/22/20 05/17/21 Rx subcutaneous solution (Lantus .COMPLEX #10 ml U-100 Insulin) lisinopril 30 mg tablet 30 mg PO DAILY #30 tab 09/22/20 05/17/21 Rx ondansetron 4 mg disintegrating 4 mg PO Q4H PRN #10 tab 09/22/20 05/17/21 Rx tablet insulin aspart U-100 100 unit/mL 10 unit SUBCUT AC 01/11/21 05/17/21 History subcutaneous solution (Novolog U-100 Insulin aspart) metformin 1,000 mg tablet 500 mg PO BID 01/11/21 05/17/21 History tamsulosin 0.4 mg capsule 0.4 mg PO HS 01/11/21 05/17/21 History atorvastatin 80 mg tablet 80 mg PO QPM 05/17/21 05/17/21 History warfarin 2.5 mg tablet 2.5 mg PO MO@1600 05/17/21 05/17/21 History warfarin 5 mg tablet 7 mg PO SUTUWETHFRSA@1600 05/17/21 05/17/21 History Allergies Allergy/AdvReac Type Severity Reaction Status Date / Time No Known Allergies Allergy Verified 05/17/21 17:42 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" Aortic valve stenosis BPH with obstruction/lower urinary tract symptoms CAD (coronary artery disease) Carotid stenosis Diabetic peripheral neuropathy associated with type 2 diabetes mellitus Dyslipidemia Hemiplegia affecting right dominant side History of CVA (cerebrovascular accident) History of pancreatitis HTN (hypertension) Hypomagnesemia Monoplegia affecting right dominant side Obesity Osteomyelitis of great toe of right foot Proliferative diabetic retinopathy Retinal edema Right foot drop Status post cerebrovascular accident Status post myocardial infarction Superior mesenteric artery stenosis Type 2 diabetes mellitus Surgical History Hx of vitrectomy S/P angioplasty with stent S/P CABG x 3 S/P PTCA (percutaneous transluminal coronary angioplasty) Family History Father Heart disease Social History Smoking Status: Former smoker Tobacco Type: Cigarettes Second Hand Exposure: No; Hx Alcohol Use: No Hx Substance Use: No Preferred Language: Georgian Communication Ability: Impaired Visual Impairment: No Limitations Hearing Ability: Normal Quality Control Tech Raw Materials Required: No Beliefs That Will Affect Care: None marital status: Current Living Situation: Spouse Current Living Situation Comment: Lives with in a split level home but he is in basement current occupational status: disabled Feels Safe at Home: Yes Assistive Devices: Glasses and Wheelchair Review of Systems See HPI for pertinent positives & negatives. and A total of 10 systems reviewed and were otherwise negative Physical Exam Vital Signs Vital Signs - 24 hr 05/17/21 14:33 05/17/21 14:52 05/17/21 14:58 Temperature 37.0 C Temperature Source Oral Pulse Rate 70 77 Pulse Rate [Apical] 66 Pulse Rate from SpO2 Sensor 75 Pulse Rhythm Regular Pulse Strength Normal Respiratory Rate 18 17 12 Respiratory Effort / Characteristics Non-Labored Respiratory Depth Normal Blood Pressure 90/52 L Blood Pressure [Left Arm] 101/54 L Blood Pressure Mean 64 Blood Pressure Mean [Left Arm] 69 Blood Pressure Position Sitting Blood Pressure Position [Left Arm] Pulse Oximetry 97 94 97 Oxygen Delivery Method Room Air Room Air Sepsis Recent Fever Within 48 Hours No Sepsis New/Unexplained Change in Mental Status No Sepsis Action Taken by Nursing No Action Required 05/17/21 15:00 05/17/21 15:30 05/17/21 16:00 Temperature Temperature Source Pulse Rate 69 67 67 Pulse Rate [Apical] Pulse Rate from SpO2 Sensor 67 68 Pulse Rhythm Pulse Strength Respiratory Rate 9 L 13 15 Respiratory Effort / Characteristics Respiratory Depth Blood Pressure 109/55 L 119/63 Blood Pressure [Left Arm] Blood Pressure Mean 73 81 Blood Pressure Mean [Left Arm] Blood Pressure Position Blood Pressure Position [Left Arm] Pulse Oximetry 96 98 Oxygen Delivery Method Sepsis Recent Fever Within 48 Hours Sepsis New/Unexplained Change in Mental Status Sepsis Action Taken by Nursing 05/17/21 16:30 05/17/21 17:00 05/17/21 17:16 Temperature Temperature Source Pulse Rate 73 84 Pulse Rate [Apical] Pulse Rate from SpO2 Sensor Pulse Rhythm Pulse Strength Respiratory Rate 16 18 Respiratory Effort / Characteristics Respiratory Depth Blood Pressure Blood Pressure [Left Arm] 110/60 Blood Pressure Mean Blood Pressure Mean [Left Arm] 76 Blood Pressure Position Blood Pressure Position [Left Arm] Lying Pulse Oximetry Oxygen Delivery Method Sepsis Recent Fever Within 48 Hours Sepsis New/Unexplained Change in Mental Status Sepsis Action Taken by Nursing 05/17/21 17:30 05/17/21 18:00 Temperature Temperature Source Pulse Rate 87 90 Pulse Rate [Apical] Pulse Rate from SpO2 Sensor Pulse Rhythm Pulse Strength Respiratory Rate 17 20 Respiratory Effort / Characteristics Respiratory Depth Blood Pressure Blood Pressure [Left Arm] Blood Pressure Mean Blood Pressure Mean [Left Arm] Blood Pressure Position Blood Pressure Position [Left Arm] Pulse Oximetry Oxygen Delivery Method Sepsis Recent Fever Within 48 Hours Sepsis New/Unexplained Change in Mental Status Sepsis Action Taken by Nursing Constitutional: Vital signs reviewed. Eyes: Pupils are equal round reactive to light. Conjunctiva are noninjected. ENT: Pharynx is clear without erythema or exudate. Mucous membranes are moist. Neck supple without meningeal signs. Respiratory: Clear to auscultation bilaterally. Breath sounds are equal bilaterally. Cardiovascular: Regular rate and rhythm. No rubs or gallops. GI: Soft, nondistended and nontender. Bowel sounds are present. Musculoskeletal: No peripheral edema. Right leg in a brace. Integumentary: No cyanosis. or jaundice. Neurological: The patient is awake and alert. Aphasia. Right-sided weakness. Psychiatric: Unable to assess. Course Administered Medications Discontinued Medications Sodium Chloride (Nss) 500 mls @ 999 mls/hr IV .Q31M [facility] Stop: 05/17/21 15:15 Last Admin: 05/17/21 15:31 Dose: 999 mls/hr Documented by: [id number] Ondansetron HCl (Ondansetron Inj 2 Mg/Ml 2 Ml Vial) 4 mg IV NOW STA Stop: 05/17/21 14:34 Last Admin: 05/17/21 15:31 Dose: 4 mg Documented by: [id number] Medical Decision Making Differential Diagnosis Near syncope, syncope, intracranial hemorrhage, CVA, metabolic derangement, dysrhythmia, heart block Medical Records Attestation: I reviewed the patient's medical records. I did perform a limited focused review of portions of the patient's old chart on the electronic medical record. The patient was admitted to the hospital in January for acute encephalopathy. He had a negative MRI of the brain and EEG at that time. Previous tests for C. difficile were always negative. Home Medications Current Medication List: was personally reviewed by me Laboratory Data Attestation: I reviewed the patient's lab results. Result diagrams: 05/17/21 15:18 05/17/21 15:18 Lab Results 05/17/21 05/17/21 05/17/21 Range/Units 15:18 15:18 15:35 WBC 11.89 H (4.8-10.8) K/uL RBC 5.65 (4.7-6.1) M/uL Hgb 14.2 (14.0-18.0) g/dL Hct 44.2 (42-52) % MCV 78.2 L (80-100) fL MCH 25.1 (25-34) pg MCHC 32.1 (32-36) g/dL RDW Std Deviation 42.5 (36.4-46.3) fL RDW Coeff of Caroline 15.0 H (11.5-14.5) % Plt Count 319 (130-400) K/uL MPV 10.5 H (7.4-10.4) fL Immature Gran % (Auto) 0.3 % Neut % (Auto) 80.1 % Lymph % (Auto) 12.2 % Dunn % (Auto) 6.4 % Eos % (Auto) 0.8 % Baso % (Auto) 0.2 % Neut # (Auto) 9.52 H (1.4-6.5) K/uL Lymph # (Auto) 1.45 (1.2-3.4) K/uL Dunn # (Auto) 0.76 H (0.11-0.59) K/uL Eos # (Auto) 0.10 (0-0.5) K/uL Baso # (Auto) 0.02 (0-0.2) K/uL Immature Gran # (Auto) 0.04 H (0.00-0.02) K/uL PT 39.2 H (9.0-12.0) Seconds INR 4.3 H (0.9-1.1) APTT 36.7 H (21.0-31.0) Seconds PTT Ratio 1.4 Sodium 139 (136-145) mmol/L Potassium 4.3 (3.5-5.1) mmol/L Chloride 104 (98-107) mmol/L Carbon Dioxide 28 (21-32) mmol/L Anion Gap 7.0 (3-11) BUN 15 (7-18) mg/dl Creatinine 1.12 (0.6-1.4) mg/dl Est Cr Clr Drug Dosing 78.6 ml/min Est GFR ( Amer) 80.6 ml/min Est GFR (Non-Af Amer) 69.5 ml/min BUN/Creatinine Ratio 13.1 (10-20) Glucose 187 H (70-99) mg/dl Calcium 9.2 (8.5-10.1) mg/dl Magnesium 1.6 L (1.8-2.4) mg/dl Total Bilirubin 0.4 (0.2-1) mg/dl AST 15 (15-37) U/L ALT 26 (12-78) Alkaline Phosphatase 119 H (45-117) U/L Troponin I < 0.015 (0-0.045) ng/ml Total Protein 8.1 (6.4-8.2) gm/dl Albumin 3.4 (3.4-5.0) gm/dl Globulin 4.7 H (2.5-4.0) gm/dl Albumin/Globulin Ratio 0.7 L (0.9-2) TSH 4.140 (0.300-4.500) uIu/ml SARS-CoV-2 (PCR) (Negative) Influenza Type A (PCR) (Neg) Influenza Type B (PCR) (Neg) RSV (RT-PCR) (Neg) 05/17/21 Range/Units 15:35 WBC (4.8-10.8) K/uL RBC (4.7-6.1) M/uL Hgb (14.0-18.0) g/dL Hct (42-52) % MCV (80-100) fL MCH (25-34) pg MCHC (32-36) g/dL RDW Std Deviation (36.4-46.3) fL RDW Coeff of Caroline (11.5-14.5) % Plt Count (130-400) K/uL MPV (7.4-10.4) fL Immature Gran % (Auto) % Neut % (Auto) % Lymph % (Auto) % Dunn % (Auto) % Eos % (Auto) % Baso % (Auto) % Neut # (Auto) (1.4-6.5) K/uL Lymph # (Auto) (1.2-3.4) K/uL Dunn # (Auto) (0.11-0.59) K/uL Eos # (Auto) (0-0.5) K/uL Baso # (Auto) (0-0.2) K/uL Immature Gran # (Auto) (0.00-0.02) K/uL PT (9.0-12.0) Seconds INR (0.9-1.1) APTT (21.0-31.0) Seconds PTT Ratio Sodium (136-145) mmol/L Potassium (3.5-5.1) mmol/L Chloride (98-107) mmol/L Carbon Dioxide (21-32) mmol/L Anion Gap (3-11) BUN (7-18) mg/dl Creatinine (0.6-1.4) mg/dl Est Cr Clr Drug Dosing ml/min Est GFR ( Amer) ml/min Est GFR (Non-Af Amer) ml/min BUN/Creatinine Ratio (10-20) Glucose (70-99) mg/dl Calcium (8.5-10.1) mg/dl Magnesium (1.8-2.4) mg/dl Total Bilirubin (0.2-1) mg/dl AST (15-37) U/L ALT (12-78) Alkaline Phosphatase (45-117) U/L Troponin I (0-0.045) ng/ml Total Protein (6.4-8.2) gm/dl Albumin (3.4-5.0) gm/dl Globulin (2.5-4.0) gm/dl Albumin/Globulin Ratio (0.9-2) TSH (0.300-4.500) uIu/ml SARS-CoV-2 (PCR) NEGATIVE (Negative) Influenza Type A (PCR) Negative (Neg) Influenza Type B (PCR) Negative (Neg) RSV (RT-PCR) Negative (Neg) Imaging Data Radiologist's Impression: Head CT 05/17/21 14:33 CT head/brain wo con CLINICAL HISTORY: ams eval for bleed Technique: Contiguous axial CT images of the head were acquired from the base of the skull to the vertex without intravenous contrast administration. Images were viewed in brain, subdural and bone windows. Automated dose lowering techniques and/or adjustment according to patient size were utilized for this exam. Comparison: Comparison is made to CT head 01/13/2021 Findings: Areas of decreased attenuation are present in the periventricular and subcortical white matter bilaterally consistent with small vessel ischemic disease. Generalized cerebral atrophy with commensurate enlargement of the ventricles, sulci, and cisterns is also present. There is no acute intracranial hemorrhage or evidence of acute territorial infarction. No shift of the midline structures, mass effect, or extra-axial abnormalities are shown. Atherosclerotic calcifications are present in the intracranial segments of the internal carotid arteries. Old lacunar infarcts are seen in the bilateral inter nal capsules. Imaged portions of the paranasal sinuses and mastoid air cells are clear. The orbits appear normal. There are no acute fractures of the calvaria or scalp sw elling. Impression: No acute intracranial hemorrhage, no evidence of acute territorial infarction or other acute intracranial disease process. ACT 112: Negative or not required by law. Electronically signed by: Bradley Reeves M.D. 05/17/2021 4:20 PM Chest X-Ray 05/17/21 14:34 XR chest 1V portable CLINICAL HISTORY: ams eval for pna TECHNIQUE: Single frontal radiograph of the chest was obtained. Comparison: Comparison is made to chest one view 01/13/2021 FINDINGS: No lines and tubes are seen. The cardiomediastinal silhouette is normal. The lungs are clear. No evidence of pleural effusion or pneumothorax. IMPRESSION: No acute abnormalities and in particular no airspace opacity to suggest pneumonia. ACT 112: Negative or not required by law. Electronically signed by: Bradley Reeves M.D. 05/17/2021 5:08 PM ECG Data Attestation: I personally reviewed and interpreted this ECG as follows: Indication: + altered mental status Rate (beats per minute): 80 Rhythm: + normal sinus ECG [place]: + Normal ECG ST segments: + T-wave inversions (1 and aVL) ECG Findings: no PVCs Comparison ECG Date: from (January 11, 2021) Change: no significant change MDM Narrative I did evaluate the patient as noted above. I did obtain history from the patient, his and the paramedics. Apparently the patient became very pale and diaphoretic and had decreased responsiveness just prior to arrival after eating lunch. His blood sugar was normal when his checked it. He was hypotensive with a blood pressure of 70 on arrival of the paramedics. He then vomited and had diarrhea and the patient became bradycardic with a heart rate of 20. No intervention was needed and his heart rate came back up. His blood pressure on arrival was slightly low but spontaneously went up to 101/54 without intervention. IV access was established. I did treat him with a normal saline bolus. He was then continued on normal saline IV. did place an order for continuous cardiac monitoring. The monitor showed normal sinus rhythm at a rate of 78 bpm. I did order and personally review the patient's 12-lead EKG as descr ibed above. He has no acute ischemic changes on twelve-lead EKG. I did order and personally reviewed the images of the patient's chest x-ray as described above. There is no evidence of acute abnormality. I did order a urine analysis. I did order and review the patient's blood work as noted in the electronic medical record. His white count is 11.89. He is not febrile here. Hemoglobin and platelet count are within normal limits. His INR is supratherapeutic at 4.3. Electrolytes and LFTs are unremarkable. Troponin and TSH are within normal limits. I did order a CT of the head. I did review the images myself as well as the radiology report as described above. There is no evidence of acute intracranial abnormality. I did discuss the test results with the patient and his . I did recommend hospitalization for further evaluation of his symptoms and monitoring of his blood pressure and pulse. I did discuss the case with the hospitalist and family preservation caseworker. His most recent blood pressure was 110/60. Impression & Plan Acute hypotension, Supratherapeutic INR, Near syncope, Bradycardia, Diarrhea Discharge Plan Visit Data Chief Complaint: Illness Stated Complaint: SYNCOPE ED Provider: Bentley Leggett Discharge Problem: Acute hypotension, Supratherapeutic INR, Near syncope, Bradycardia, Diarrhea Patient Disposition: Being Evaluated by Hospitalist Forms Stand Alone Forms: My [facility] Prescriptions Prescriptions: No Action nitroglycerin 0.4 mg tablet, sublingual 0.4 mg sublingual DIRECTED PRN (Reason: Chest Pain) RF: 0 insulin aspart U-100 [Novolog U-100 Insulin aspart] 100 unit/mL solution 10 unit subcut AC RF: 0 tamsulosin 0.4 mg capsule 0.4 mg PO HS RF: 0 metformin 1,000 mg tablet 500 mg PO BID RF: 0 carvedilol 12.5 mg tablet 12.5 mg PO BID Qty: 60 RF: 0 Lantus U-100 Insulin 100 unit/mL solution See Rx Instructions .ROUTE .COMPLEX Qty: 10 RF: 0 clopidogrel [Plavix] 75 mg tablet 75 mg PO QAM Qty: 30 RF: 0 amlodipine [Norvasc] 5 mg tablet 5 mg PO QAM Qty: 30 RF: 0 aspirin 81 mg Tablet,Delayed Release (Dr/Ec) 81 mg PO QAM Qty: 30 RF: 0 lisinopril 30 mg tablet 30 mg PO DAILY Qty: 30 RF: 0 ondansetron 4 mg tablet,disintegrating 4 mg PO Q4H PRN (Reason: Nausea) Qty: 10 RF: 0 baclofen 5 mg tablet 5 mg PO QAM Qty: 30 RF: 0 atorvastatin 80 mg tablet 80 mg PO QPM RF: 0 warfarin 2.5 mg Tablet 2.5 mg PO MO@1600 RF: 0 warfarin 5 mg Tablet 7 mg PO SUTUWETHFRSA@1600 RF: 0 Referrals Referrals: Dereck Zaman DO [Primary Care Provider] - Discharge Problem: Diarrhea Qualifiers: Diarrhea type: unspecified type Qualified Code(s): R19.7 - Diarrhea, unspecified
[2021-05-17] MEDS ORDERED: SODIUM CHLORIDE 0.9% 500 ML IV SCH ×2 (14:45→17:30)
[2021-05-17 15:45] LABS: Basophils # (auto) 0.02 K/uL (0-0.2); Basophils % (auto) 0.2 %; Eosinophils % (auto) 0.8 %; Hematocrit (blood only) 44.2 % (42-52); Hemoglobin 14.2 g/dL (14.0-18.0); Immature Granulocytes # (auto) 0.04 K/uL (0.00-0.02); Immature Granulocytes % (auto) 0.3 %; Lymphocytes # (auto) 1.45 K/uL (1.2-3.4); Lymphocytes % (auto) 12.2 %; Mean Corpuscular Hemoglobin 25.1 pg (25-34); Mean Corpuscular Hgb Conc 32.1 g/dL (32-36); Mean Corpuscular Volume 78.2 fL (80-100); Mean Platelet Volume 10.5 fL (7.4-10.4); Monocytes # (auto) 0.76 K/uL (0.11-0.59); Monocytes % (auto) 6.4 %; Neutrophils # (auto) 9.52 K/uL (1.4-6.5); Neutrophils % (auto) 80.1 %; Platelet Count 319 K/uL (130-400); RDW Standard Deviation 42.5 fL (36.4-46.3); Red Blood Count 5.65 M/uL (4.7-6.1); White Blood Count 11.89 K/uL (4.8-10.8)
[2021-05-17 16:05] LABS: Alanine Aminotransferase 26 (12-78); Albumin Level 3.4 gm/dl (3.4-5.0); Aspartate Aminotransferase 15 U/L (15-37); BUN Creatinine Ratio 13.1 (10-20); Blood Urea Nitrogen 15 mg/dl (7-18); Calcium 9.2 mg/dl (8.5-10.1); Carbon Dioxide 28 mmol/L (21-32); Chloride 104 mmol/L (98-107); Creatinine Clr Calc Pharmacy 78.6 ml/min; Est GFR (African American) 80.6 ml/min; Est GFR (Non-African American) 69.5 ml/min; Glucose 187 mg/dl (70-99); Potassium 4.3 mmol/L (3.5-5.1); Sodium 139 mmol/L (136-145)
[2021-05-17 16:15] LABS: Albumin Globulin Ratio 0.7 (0.9-2); Alkaline Phosphatase 119 U/L (45-117); Bilirubin,Total 0.4 mg/dl (0.2-1); Globulin 4.7 gm/dl (2.5-4.0); Total Protein 8.1 gm/dl (6.4-8.2); Troponin I < 0.015 ng/ml (0-0.045)
--- NOTE | 2021-05-17 16:21 | CT Scan Report ---
CT head/brain wo con CLINICAL HISTORY: ams eval for bleed Technique: Contiguous axial CT images of the head were acquired from the base of the skull to the eliezer sharifa without intravenous contrast administration. Images were viewed in brain, subdural and bone [facility]. Automated dose lowering techniques and/or adjustment according to patient size were utilized for this exam. Comparison: Comparison is made to CT head 01/13/2021 Findings: Areas of decreased attenuation are present in the periventricular and subcortical white matter bilate rally consistent with small vessel ischemic disease. Generalized cerebral atrophy with commensurate e nlargement of the ventricles, sulci, and cisterns is also present. There is no acute intracranial hem orrhage or evidence of acute territorial infarction. No shift of the midline structures, mass effect, or extra-axial abnormalities are shown. Atherosclerotic calcifications are present in the intracran ial segments of the internal carotid arteries. Old lacunar infarcts are seen in the bilateral interna l capsules. Imaged portions of the paranasal sinuses and mastoid air cells are clear. The orbits appear normal. There are no acute fractures of the calvaria or scalp swelling. Impression: No acute intracranial hemorrhage, no evidence of acute territorial infarction or other acute intracra nial disease process. ACT 112: Negative or not required by law. Electronically signed by: Bradley Reeves M.D. 05/17/2021 4:20 PM
[2021-05-17 16:37] LABS: INR 4.3 (0.9-1.1); Partial Thromboplastin Ratio 1.4; Partial Thromboplastin Time 36.7 Seconds (21.0-31.0); Prothrombin Time 39.2 Seconds (9.0-12.0)
[2021-05-17 16:51] LABS: Magnesium 1.6 mg/dl (1.8-2.4)
--- NOTE | 2021-05-17 17:10 | XRay Report ---
XR chest 1V portable CLINICAL HISTORY: ams eval for pna TECHNIQUE: Single frontal radiograph of the chest was obtained. Comparison: Comparison is made to chest one view 01/13/2021 FINDINGS: No lines and tubes are seen. The cardiomediastinal silhouette is normal. The lungs are clear. No evid ence of pleural effusion or pneumothorax. IMPRESSION: No acute abnormalities and in particular no airspace opacity to suggest pneumonia. ACT 112: Negative or not required by law. Electronically signed by: Bradley Reeves M.D. 05/17/2021 5:08 PM
--- NOTE | 2021-05-17 17:25 | History & Physical Report ---
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 Back to baseline after 15-20 minutes of confusion with transient hypotensive and bradycardic episodes Vital signs stable since arrival, no repeat bradycardia or hypotension. Mild leukocytosis of 11, TSH wnl, covid PCR pending CT head and CXR without acute abnormality, ECG without significant change from previous Monitor on telemetry for bradyarrhythmia, repeat MRI brain wo con due to stroke history, follow UA and covid PCR results Holding today's coumadin dose since supratherapeutic. Repeat INR in AM Routine cardiology and neuro consults (4) Supratherapeutic INR: Plan: Home regimen Mon 2.5mg, 7mg all other days, follows with anticoagulation clinic INR 4.3 - holding this evening's coumadin dose Repeat INR in AM (5) Paroxysmal atrial fibrillation: Plan: Hold coumadin this evening. Continue carvedilol (6) Diarrhea: Plan: Ongoing loose stools at home. C diff and stool cx pending (7) CAD (coronary artery disease): (8) Peripheral arterial disease: Plan: History of CABG x3, carotid artery stenosis, SMA stenosis, PAD Continue with aspirin, statin, Plavix, Coreg, lisinopril - holding Coumadin while INR supratherapeutic (9) HTN (hypertension): Plan: Normotensive. Continue home medications (10) Type 2 diabetes mellitus: Plan: A1c 7.2 04/26 Hold home agents Basal/bolus insulin while in-patient BSG AC HS (11) Aortic valve stenosis: Plan: Degree of aortic stenosis is worse compared to 11/2019, no intervention per cardiology on previous admission due to stroke risk DVT Ppx: Holding coumadin while INR supratherapeutic Code status: FULL PCP: Lisa Dispo: Observation med tele Patient seen in collaboration with Dr. Carr. Please see addendum. 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 He had just lunch and wheeled him into living room when he "spaced out" and did not respond to her questions as usual. Patient was noted to be diaphoretic and thought he may be hypoglycemic and checked BSG which was elevated at 197. Did not lose consciousness, no fall. Patient remembers this event and denies any preceding visual changes, lightheadedness, chest pain, palpitations. thought he returned to baseline within 15-20 minutes. During this time, EMS was called and he was noted to have one recorded incidence of hypotension with SBP in 70s and bradycardia x 1 with HR reportedly in 20s. Vitals since then have been in normal range. Received all morning medications. Has not yet taken 1600 dosing of coumadin and carvedilol. Currently feeling at his baseline and agrees. No fever, chills, lightheadedness, CP, SOB, N/V, abdominal pain or constipation. Chronic loose stools, is incontinent of urine. Has recurrent sacral wound is caring for. Was admitted January of this year after episode of confusion and was found to have new embolic stroke on repeat MRI 3 days into admission despite triple therapy on aspirin, plavix and coumadin. Per cardiology, thought is that diffuse atheromatous disease in aorta and peripherally likely source of embolization.�Statin changed to rosuvastatin 40mg daily with consideration of starting PCK 9 inhibitor as an outpatient to stabilize plaque. Discharged to [facility] for rehab and then [facility] but was brought back home by in March with home health services. Has residual R hemiparesis and dysphasia from previous stroke. Allergies Allergy/AdvReac Type Severity Reaction Status Date / Time No Known Allergies Allergy Verified 05/17/21 17:42 Home Medications Medication Instructions Recorded Confirmed Type nitroglycerin 0.4 mg sublingual 0.4 mg SUBLINGUAL DIRECTED PRN 08/09/19 05/17/21 History tablet amlodipine 5 mg tablet (Norvasc) 5 mg PO QAM #30 tab 09/22/20 05/17/21 Rx aspirin 81 mg tablet,delayed 81 mg PO QAM #30 tab 09/22/20 05/17/21 Rx release baclofen 5 mg tablet 5 mg PO QAM #30 tab 09/22/20 05/17/21 Rx carvedilol 12.5 mg tablet 12.5 mg PO BID #60 tab 09/22/20 05/17/21 Rx clopidogrel 75 mg tablet (Plavix) 75 mg PO QAM #30 tab 09/22/20 05/17/21 Rx insulin glargine 100 unit/mL See Rx Instructions .ROUTE 09/22/20 05/17/21 Rx subcutaneous solution (Lantus .COMPLEX #10 ml U-100 Insulin) lisinopril 30 mg tablet 30 mg PO DAILY #30 tab 09/22/20 05/17/21 Rx ondansetron 4 mg disintegrating 4 mg PO Q4H PRN #10 tab 09/22/20 05/17/21 Rx tablet insulin aspart U-100 100 unit/mL 10 unit SUBCUT AC 01/11/21 05/17/21 History subcutaneous solution (Novolog U-100 Insulin aspart) metformin 1,000 mg tablet 500 mg PO BID 01/11/21 05/17/21 History tamsulosin 0.4 mg capsule 0.4 mg PO HS 01/11/21 05/17/21 History atorvastatin 80 mg tablet 80 mg PO QPM 05/17/21 05/17/21 History warfarin 2.5 mg tablet 2.5 mg PO MO@1600 05/17/21 05/17/21 History warfarin 5 mg tablet 7 mg PO SUTUWETHFRSA@1600 05/17/21 05/17/21 History 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" Aortic valve stenosis BPH with obstruction/lower urinary tract symptoms CAD (coronary artery disease) Carotid stenosis Diabetic peripheral neuropathy associated with type 2 diabetes mellitus Dyslipidemia Hemiplegia affecting right dominant side History of CVA (cerebrovascular accident) History of pancreatitis HTN (hypertension) Hypomagnesemia Monoplegia affecting right dominant side Obesity Osteomyelitis of great toe of right foot Proliferative diabetic retinopathy Retinal edema Right foot drop Status post cerebrovascular accident Status post myocardial infarction Superior mesenteric artery stenosis Type 2 diabetes mellitus Surgical History Hx of vitrectomy S/P angioplasty with stent S/P CABG x 3 S/P PTCA (percutaneous transluminal coronary angioplasty) Family History Father Heart disease Social History Smoking Status: Former smoker Tobacco Type: Cigarettes Second Hand Exposure: No; Hx Alcohol Use: No Hx Substance Use: No Preferred Language: Estonian Communication Ability: Impaired Visual Impairment: No Limitations Hearing Ability: Normal Real Estate Administrator Required: No Beliefs That Will Affect Care: None marital status: Current Living Situation: Spouse Current Living Situation Comment: Lives with in a split level home but he is in basement current occupational status: disabled Feels Safe at Home: Yes Assistive Devices: Glasses and Wheelchair Review of Systems Review of Systems: At least ten systems reviewed and negative except as noted in the HPI. Physical Exam Physical Exam: General Appearance: WD/WN, vitals as above, NAD, sitting up in bed, pleasant, conversing easily Head: normocephalic, atraumatic Eyes: normal inspection, PERRL, conjunctivae normal, anicteric sclerae ENT: external ear and nose normal, oropharynx normal Neck: normal visual inspection, trachea midline, no thyromegaly Respiratory: normal respiratory effort, lungs clear to auscultation, no wheeze, rales, rhonchi. No accessory muscle use Cardiovascular: regular rate, rhythm, systolic murmur, normal peripheral pulses, no BLE edema. Vessels: no JVD Chest: normal inspection of chest Abdomen/GI: normal bowel sounds, soft, nontender, no hepatosplenomegaly Extremities/Musculoskeletal: no cyanosis or clubbing, extremities motor strength 5/5, + R foot drop Neurologic: PERRL, EOMI, accommodation nl, no face palsy, + mild dysarthria (chronic), R hemiparesis (chronic), CN's II-XI intact bilaterally Psychiatric: A+Ox3, euthymic affect Skin: no rashes, normal color, warm/dry Results & Data Results & Data ([facility]) Vital Signs (Past 12 Hours) Vital Signs Temp Pulse Pulse Resp BP BP Pulse Ox 05/17/21 17:16 110/60 05/17/21 14:58 66 12 101/54 L 97 05/17/21 14:33 37.0 C 70 18 90/52 L 97 Laboratory Results Short CBC 05/17/21 05/17/21 Range/Units 15:18 15:35 WBC 11.89 H (4.8-10.8) K/uL Hgb 14.2 (14.0-18.0) g/dL Hct 44.2 (42-52) % Plt Count 319 (130-400) K/uL INR 4.3 H (0.9-1.1) BMP 05/17/21 15:18 Sodium 139 Potassium 4.3 Chloride 104 Carbon Dioxide 28 BUN 15 Creatinine 1.12 Glucose 187 H Calcium 9.2 Cardiac Enzymes 05/17/21 Range/Units 15:18 Troponin I < 0.015 (0-0.045) ng/ml Liver Function 05/17/21 Range/Units 15:18 Total Bilirubin 0.4 (0.2-1) mg/dl AST 15 (15-37) U/L ALT 26 (12-78) Alkaline Phosphatase 119 H (45-117) U/L Albumin 3.4 (3.4-5.0) gm/dl Diagnostic Findings Head CT 05/17/21 14:33 CT head/brain wo con CLINICAL HISTORY: ams eval for bleed Technique: Contiguous axial CT images of the head were acquired from the base of the skull to the vertex without intravenous contrast administration. Images were viewed in brain, subdural and bone windows. Automated dose lowering techniques and/or adjustment according to patient size were utilized for this exam. Comparison: Comparison is made to CT head 01/13/2021 Findings: Areas of decreased attenuation are present in the periventricular and subcortical white matter bilaterally consistent with small vessel ischemic disease. Generalized cerebral atrophy with commensurate enlargement of the ventricles, sulci, and cisterns is also present. There is no acute intracranial hemorrhage or evidence of acute territorial infarction. No shift of the midline structures, mass effect, or extra-axial abnormalities are shown. Atherosclerotic calcifications are present in the intracranial segments of the internal carotid arteries. Old lacunar infarcts are seen in the bilateral internal capsules. Imaged portions of the paranasal sinuses and mastoid air cells are clear. The orbits appear normal. There are no acute fractures of the calvaria or scalp swelling. Impression: No acute intracranial hemorrhage, no evidence of acute territorial infarction or other acute intracranial disease process. ACT 112: Negative or not required by law. Electronically signed by: Bradley Reeves M.D. 05/17/2021 4:20 PM Chest X-Ray 05/17/21 14:34 XR chest 1V portable CLINICAL HISTORY: ams eval for pna TECHNIQUE: Single frontal radiograph of the chest was obtained. Comparison: Comparison is made to chest one view 01/13/2021 FINDINGS: No lines and tubes are seen. The cardiomediastinal silhouette is normal. The lungs are clear. No evidence of pleural effusion or pneumothorax. IMPRESSION: No acute abnormalities and in particular no airspace opacity to suggest pneumonia. ACT 112: Negative or not required by law. Electronically signed by: Bradley Reeves M.D. 05/17/2021 5:08 PM Supervising Physician Co-Signing Physician Notes Attending addendum: The patient was seen and examined in emergency room in presence of the He was brought in with possible near syncope and was weird as per the and he was noted to have one episode of low blood pressure and bradycardia by the EMS He does not have any symptoms during my examination and he denies any worsening of any of his overall condition On examination No apparent distress at rest He is hemodynamically stable He has dysarthria from prior stroke and right hemiparesis from prior stroke as well Chest�clear to auscultate bilaterally Heart�S1-S2, regular with 2/6 ESM over precordium and aortic area Abdomen�benign Extremities�trace edema bilaterally more on the left than the right 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
[2021-05-17 19:07] LABS: Influenza A virus by PCR Negative (Neg); Influenza B virus by PCR Negative (Neg); RSV by PCR Negative (Neg); SARS CoV2 RNA(COVID-19) InHosp NEGATIVE (Negative)
[2021-05-17] MEDS ORDERED: CARBOHYDRATES FOR HYPOGLYCEMIA PO PRN (21:29)
[2021-05-17] MEDS ORDERED: GLUCOSE 40% GEL 15 GM TUBE PO PRN (21:29)
[2021-05-17] MEDS ORDERED: ONDANSETRON INJ 2 MG/ML 2 ML VIAL IV PRN (21:29)
[2021-05-17] MEDS ORDERED: GLUCAGON FOR INJ 1 MG VIAL SQ PRN (21:29)
[2021-05-17] MEDS ORDERED: DEXTROSE 50% 50 ML SYRINGE IV PRN (21:29)
[2021-05-17] MEDS ORDERED: GLUCOSE 10 TABS/TUBE PO PRN (21:29)
[2021-05-17] MEDS ORDERED: POLYETHYLENE (MIRALAX) 17 GM PACK PO PRN (21:29)
[2021-05-17] MEDS ORDERED: ACETAMINOPHEN 325 MG TAB PO PRN (21:29)
[2021-05-17] MEDS: INSULIN GLARGINE SOLOSTAR 100 UNITS/ML 3 ML PEN SC SCH (22:02)
[2021-05-17] MEDS: INSULIN ASPART PER UNIT SC SCH (22:03)
[2021-05-17] MEDS: TAMSULOSIN HCL 0.4 MG CAP PO SCH (22:09)
[2021-05-17] MEDS: ATORVASTATIN 40 MG TAB PO SCH (22:09)
[2021-05-17] MEDS: carvediloL 12.5 MG TAB PO SCH (22:10)
--- NOTE | 2021-05-17 22:16 | Electrocardiogram Report ---
Test Reason : Blood Pressure : / mmHG Vent. Rate : 080 BPM Atrial Rate : 080 BPM P-R Int : 136 ms QRS Dur : 086 ms QT Int : 402 ms P-R-T Axes : 065 053 116 degrees QTc Int : 463 ms Normal sinus rhythm Possible Left atrial enlargement Inferior infarct (cited on or before 13-OCT-2006) Possible Anterior infarct T wave abnormality, consider lateral ischemia Abnormal ECG When compared with ECG of 11-JAN-2021 15:53, No significant change was found Confirmed by Jose Raul Parker ([id number]) on 05/17/2021 10:15:45 PM Referred By: Confirmed By:Jose Raul Parker
[2021-05-18 05:26] LABS: Hematocrit (blood only) 37.6 % (42-52); Mean Corpuscular Hemoglobin 24.9 pg (25-34); Mean Corpuscular Hgb Conc 31.9 g/dL (32-36); Mean Platelet Volume 10.7 fL (7.4-10.4); Platelet Count 274 K/uL (130-400); RDW Standard Deviation 42.8 fL (36.4-46.3); Red Blood Count 4.82 M/uL (4.7-6.1); White Blood Count 6.71 K/uL (4.8-10.8)
[2021-05-18 05:51] LABS: INR 4.6 (0.9-1.1); Prothrombin Time 41.1 Seconds (9.0-12.0)
[2021-05-18 05:57] LABS: BUN Creatinine Ratio 17.1 (10-20); Calcium 8.7 mg/dl (8.5-10.1); Creatinine Clr Calc Pharmacy 80.1 ml/min; Est GFR (African American) 82.4 ml/min; Est GFR (Non-African American) 71.1 ml/min; Potassium 3.7 mmol/L (3.5-5.1)
--- NOTE | 2021-05-18 08:13 | Magnetic Resonance Report ---
Brain MRI WITHOUT CONTRAST HISTORY: Sudden onset of weakness. Near syncope. near syncope, history of cva TECHNIQUE: Multiplanar multisequence MRI of the brain was performed without the use of contrast. COMPARISON STUDY: Head CT 05/17/2021. FINDINGS: Suboptimal evaluation of the brain due to motion artifact. No areas restricted diffusion to suggest acute infarction. There is a 1.6 cm retention cyst within the right maxillary sinus. The mas toid air cells are clear. The major vascular flow voids at the skull base are well-maintained. No def inite mass, hematoma, midline shift shift. The ventricles and sulci demonstrate age-related involutio nal changes. Old lacunar infarcts within the sarabjit and bilateral basal ganglia. Periarticular white ma tter T2 hyperintensity is nonspecific but favors moderate microvascular ischemic change. Old small in farct within the right parietal lobe with mild encephalomalacia. There are few scattered punctate foc i susceptibility artifact seen within the left cerebral hemisphere. This could be due to calcificatio n/mineralization. IMPRESSION: 1. No acute infarct or intracranial hemorrhage. 2. Moderate atrophy and microvascular ischemic changes. 3. Old lacunar infarcts within the bilateral basal ganglia and saarbjit. ACT 112: Negative or not required by law. Electronically signed by: Chris Bowens M.D. 05/18/2021 8:12 AM
[2021-05-18] MEDS: ASPIRIN 81 MG ECTAB PO SCH (08:24)
[2021-05-18] MEDS: BACLOFEN 10 MG TAB PO SCH (08:24)
[2021-05-18] MEDS: amLODIPine BESYLATE 5 MG TAB PO SCH (08:25)
[2021-05-18] MEDS: CLOPIDOGREL BISULFATE 75 MG TAB PO SCH (08:25)
[2021-05-18] MEDS: carvediloL 12.5 MG TAB PO SCH (08:25)
[2021-05-18] MEDS ORDERED: lisinopril 10 MG TAB PO SCH (09:00)
[2021-05-18] MEDS: INSULIN ASPART PER UNIT SC SCH ×4 (09:32→20:17)
[2021-05-18] MEDS: INSULIN GLARGINE SOLOSTAR 100 UNITS/ML 3 ML PEN SC SCH ×2 (09:33→20:13)
--- NOTE | 2021-05-18 10:06 | Cardiology Consultation ---
Date of Consultation May 18, 2021 Assessment & Plan (1) Altered mental status: (2) Status post cerebrovascular accident: (3) CAD (coronary artery disease): (4) Aortic valve stenosis: (5) Peripheral arterial disease: (6) Acute hypotension: Patient is a 61-year-old male with very complex history as outlined but notable for diffuse vasculopathy including initial coronary bypass grafting at age 46, atherosclerotic peripheral vascular disease and cerebrovascular disease. He had evidence of past recurrent stroke with residual right hemiplegia and expressive aphasia most recent event January 2021. In addition to longstanding diabetes hypertension patient is noted to have borderline severe calcific aortic stenosis. Patient presents after acute mental status change confusion and diaphoresis episode at home with transient hypotension and bradycardia observed post emesis. No acute findings on EKG and troponin on initial evaluation. Echocardiogram reviewed from January which did demonstrate borderline severe aortic stenosis but not critical aortic stenosis nor of severity to likely cause syncope at rest No arrhythmias observed since admission no prior history of atrial fibrillation with patient on dual antiplatelet therapy and warfarin due to recurrent cerebrovascular events Recommendations: We will reduce carvedilol to 6.25 mg twice per day, reduce lisinopril to 20 mg p.o. daily. Continue telemetry Assess further for possible other sources of hypotension including infection with prior nonhealing ulcerations foot and sacrum Aortic valve disease as noted above concern but not likely to cause rest symptoms patient extremely high/prohibitively high risk valvular intervention candidate History of Present Illness Reason for Consultation: Acute mental status changes, bradycardia Requesting Physician: Dr. Carr Attending Physician: Jolie Crar MD History of Present Illness Patient is a very complex 61-year-old male whose ongoing issues include 1. Borderline severe to severe aortic calcific valve stenosis 2. 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 in the setting of diabetes for which patient initially underwent off pump 3 vessel coronary artery bypass grafting in 2006 with DUARTE to LAD, SVG to circumflex and SVG to PDA 3. Bare metal stent to protected left main coronary artery 08/13/2015 4. PCI drug-eluting stent to the saphenous vein graft to RPDA 04/17/2014 5. PCI, �drug-eluting stent to the ostial portion of the SVG to RCA 12/04/2014 for severe in stent restenosis 6. Moderate carotid atheromatous plaque, non-occlusive disease 7. Cerebral vascular disease status post bilateral frontal infarctions on 05/30/2015 while he was already on dual anti-platelet therapy with aspirin and clopidogrel, prompting initiation of warfarin at that time, recurrent stroke 11/2017, January 2021 residual right hemiparesis, expressive aphasia 8. Diabetes, longstanding insulin requiring with neuropathy 9. Dyslipidemia 10. Peripheral vascular disease status post right popliteal atherectomy due to nonhealing foot ulceration, superior mesenteric artery stenosis Patient presents this admission noting having had a postprandial episode of confusion and lethargy by chart description. Patient unable to recall any details and poorly communicative of symptoms relating it. Feels he is back to his baseline. Chart review notes no loss of consciousness. No surrounding chest pains though patient diaphoretic and transiently bradycardic and hypotensive after episode of emesis and diarrhea on EMS examination. Initial evaluation unrevealing with EKG unchanged and cardiac enzymes negative. Patient denies fevers chills or cough. No observed bleeding difficulties. Blood pressure is usually high, trending lower today Allergies Allergy/AdvReac Type Severity Reaction Status Date / Time No Known Allergies Allergy Verified 05/17/21 17:42 Home Medications Medication Instructions Recorded Confirmed Type nitroglycerin 0.4 mg sublingual 0.4 mg SUBLINGUAL DIRECTED PRN 08/09/19 05/17/21 History tablet amlodipine 5 mg tablet (Norvasc) 5 mg PO QAM #30 tab 09/22/20 05/17/21 Rx aspirin 81 mg tablet,delayed 81 mg PO QAM #30 tab 09/22/20 05/17/21 Rx release baclofen 5 mg tablet 5 mg PO QAM #30 tab 09/22/20 05/17/21 Rx carvedilol 12.5 mg tablet 12.5 mg PO BID #60 tab 09/22/20 05/17/21 Rx clopidogrel 75 mg tablet (Plavix) 75 mg PO QAM #30 tab 09/22/20 05/17/21 Rx insulin glargine 100 unit/mL See Rx Instructions .ROUTE 09/22/20 05/17/21 Rx subcutaneous solution (Lantus .COMPLEX #10 ml U-100 Insulin) lisinopril 30 mg tablet 30 mg PO DAILY #30 tab 09/22/20 05/17/21 Rx ondansetron 4 mg disintegrating 4 mg PO Q4H PRN #10 tab 09/22/20 05/17/21 Rx tablet insulin aspart U-100 100 unit/mL 10 unit SUBCUT AC 01/11/21 05/17/21 History subcutaneous solution (Novolog U-100 Insulin aspart) metformin 1,000 mg tablet 500 mg PO BID 01/11/21 05/17/21 History tamsulosin 0.4 mg capsule 0.4 mg PO HS 01/11/21 05/17/21 History atorvastatin 80 mg tablet 80 mg PO QPM 05/17/21 05/17/21 History warfarin 2.5 mg tablet 2.5 mg PO MO@1600 05/17/21 05/17/21 History warfarin 5 mg tablet 7 mg PO SUTUWETHFRSA@1600 05/17/21 05/17/21 History Patient History Medical History 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" Aortic valve stenosis BPH with obstruction/lower urinary tract symptoms CAD (coronary artery disease) Carotid stenosis Diabetic peripheral neuropathy associated with type 2 diabetes mellitus Dyslipidemia Hemiplegia affecting right dominant side History of CVA (cerebrovascular accident) History of pancreatitis HTN (hypertension) Hypomagnesemia Monoplegia affecting right dominant side Obesity Osteomyelitis of great toe of right foot Proliferative diabetic retinopathy Retinal edema Right foot drop Status post cerebrovascular accident Status post myocardial infarction Superior mesenteric artery stenosis Type 2 diabetes mellitus Surgical History Hx of vitrectomy S/P angioplasty with stent S/P CABG x 3 S/P PTCA (percutaneous transluminal coronary angioplasty) Family History Father Heart disease Social History Smoking Status: Former smoker Tobacco Type: Cigarettes Second Hand Exposure: No; Hx Alcohol Use: No Hx Substance Use: No Preferred Language: Setswana Communication Ability: Impaired Visual Impairment: No Limitations Hearing Ability: Normal Knifeman Required: No Beliefs That Will Affect Care: None marital status: Current Living Situation: Spouse Current Living Situation Comment: Lives with in a split level home but he is in basement current occupational status: disabled Other Information That Helps Us Care for You: No Feels Safe at Home: Yes Safety Concerns: Feels Safe At This Time Assistive Devices: Brace/Splint/Immobilizer, Glasses and Wheelchair Review of Systems Review of Systems: Unobtainable due to cognitive status Physical Exam Constitutional: + language barrier (Secondary to expressive aphasia); no acute distress Eyes: PERRL, conjunctivae normal, anicteric sclerae ENMT: external ear and nose normal, oropharynx normal Neck: trachea midline, no thyromegaly Respiratory: normal respiratory effort, lungs clear to auscultation Cardiovascular: Rate/Rhythm: regular rate and regular rhythm Heart Sounds: normal S1 and + murmur (Grade 2/6 to 3/6 systolic ejection murmur); + abnormal S2 (Diminished) and no gallop Palpation: normal PMI Vessels: normal carotid upstroke and radial pulses present; no JVD Extremities: no edema Gastrointestinal (Abdomen): normal bowel sounds, soft, nontender, no hepatosplenomegaly Neurologic: Speech / Cognition: + expressive aphasia Right hemiplegia Psychiatric: Orientation: alert Results & Data ([facility]) Vital Signs (Past 12 Hours) Vital Signs Temp Pulse Pulse Resp BP Pulse Ox Pulse Ox 05/18/21 09:59 36.9 C 82 86 17 127/73 97 05/18/21 07:00 36.8 C 78 18 136/83 96 05/18/21 06:00 72 14 99/63 L 96 05/18/21 05:00 61 12 98/47 L 99 05/18/21 04:00 67 12 102/52 L 96 05/18/21 03:22 70 16 107/70 97 05/18/21 01:58 69 18 125/55 L 94 05/18/21 00:53 77 16 113/56 L 95 97 Laboratory Results Laboratory Results - last 24 hr 05/17/21 05/17/21 05/17/21 15:18 15:18 15:35 WBC 11.89 H RBC 5.65 Hgb 14.2 Hct 44.2 MCV 78.2 L MCH 25.1 MCHC 32.1 RDW Std Deviation 42.5 RDW Coeff of Caroline 15.0 H Plt Count 319 MPV 10.5 H Immature Gran % (Auto) 0.3 Neut % (Auto) 80.1 Lymph % (Auto) 12.2 [place] % (Auto) 6.4 Eos % (Auto) 0.8 Baso % (Auto) 0.2 Neut # (Auto) 9.52 H Lymph # (Auto) 1.45 [place] # (Auto) 0.76 H Eos # (Auto) 0.10 Baso # (Auto) 0.02 Immature Gran # (Auto) 0.04 H PT 39.2 H INR 4.3 H APTT 36.7 H PTT Ratio 1.4 Sodium 139 Potassium 4.3 Chloride 104 Carbon Dioxide 28 Anion Gap 7.0 BUN 15 Creatinine 1.12 Est Cr Clr Drug Dosing 78.6 Est GFR ( Amer) 80.6 Est GFR (Non-Af Amer) 69.5 BUN/Creatinine Ratio 13.1 Glucose 187 H POC Glucose Calcium 9.2 Magnesium 1.6 L Total Bilirubin 0.4 AST 15 ALT 26 Alkaline Phosphatase 119 H Troponin I < 0.015 Total Protein 8.1 Albumin 3.4 Globulin 4.7 H Albumin/Globulin Ratio 0.7 L Triglycerides Cholesterol LDL Cholesterol, Calc VLDL Cholesterol, Calc HDL Cholesterol Cholesterol/HDL Ratio TSH 4.140 SARS-CoV-2 (PCR) Influenza Type A (PCR) Influenza Type B (PCR) RSV (RT-PCR) 05/17/21 05/17/21 05/18/21 15:35 21:58 04:38 WBC 6.71 RBC 4.82 Hgb 12.0 L Hct 37.6 L MCV 78.0 L MCH 24.9 L MCHC 31.9 L RDW Std Deviation 42.8 RDW Coeff of Caroline 15.0 H Plt Count 274 MPV 10.7 H Immature Gran % (Auto) Neut % (Auto) Lymph % (Auto) [place] % (Auto) Eos % (Auto) Baso % (Auto) Neut # (Auto) Lymph # (Auto) [place] # (Auto) Eos # (Auto) Baso # (Auto) Immature Gran # (Auto) PT INR APTT PTT Ratio Sodium Potassium Chloride Carbon Dioxide Anion Gap BUN Creatinine Est Cr Clr Drug Dosing Est GFR ( Amer) Est GFR (Non-Af Amer) BUN/Creatinine Ratio Glucose POC Glucose 210 H Calcium Magnesium Total Bilirubin AST ALT Alkaline Phosphatase Troponin I Total Protein Albumin Globulin Albumin/Globulin Ratio Triglycerides Cholesterol LDL Cholesterol, Calc VLDL Cholesterol, Calc HDL Cholesterol Cholesterol/HDL Ratio TSH SARS-CoV-2 (PCR) NEGATIVE Influenza Type A (PCR) Negative Influenza Type B (PCR) Negative RSV (RT-PCR) Negative 05/18/21 05/18/21 05/18/21 04:38 04:38 07:02 WBC RBC Hgb Hct MCV MCH MCHC RDW Std Deviation RDW Coeff of Caroline Plt Count MPV Immature Gran % (Auto) Neut % (Auto) Lymph % (Auto) [place] % (Auto) Eos % (Auto) Baso % (Auto) Neut # (Auto) Lymph # (Auto) [place] # (Auto) Eos # (Auto) Baso # (Auto) Immature Gran # (Auto) PT 41.1 H INR 4.6 H APTT PTT Ratio Sodium 141 Potassium 3.7 Chloride 108 H Carbon Dioxide 28 Anion Gap 5.0 BUN 19 H Creatinine 1.10 Est Cr Clr Drug Dosing 80.1 Est GFR ( Amer) 82.4 Est GFR (Non-Af Amer) 71.1 BUN/Creatinine Ratio 17.1 Glucose 131 H POC Glucose 133 H Calcium 8.7 Magnesium Total Bilirubin AST ALT Alkaline Phosphatase Troponin I Total Protein Albumin Globulin Albumin/Globulin Ratio Triglycerides 110 Cholesterol 83 LDL Cholesterol, Calc 29 VLDL Cholesterol, Calc 22 HDL Cholesterol 32 Cholesterol/HDL Ratio 3 TSH SARS-CoV-2 (PCR) Influenza Type A (PCR) Influenza Type B (PCR) RSV (RT-PCR) (1) Altered mental status Altered mental status type: unspecified Qualified Code(s): R41.82 - Altered mental status, unspecified
--- NOTE | 2021-05-18 11:29 | Neurology Consultation ---
Date of Consultation May 18, 2021 Supervising Physician Co-Signing Physician Notes I have seen and discussed above patient with Dr Efra Mcnair History of Present Illness Reason for Consultation: near syncope, significant CVA history Requesting Physician: Jolie Carr MD Attending Physician: Jolie Carr MD History of Present Illness Deja is a 61 year old male with a PMH -CVA with residual right hemiparesis and dysphasia, PAF anticoagulated on warfarin, CAD with history of CABG x3, basilar artery aneurysm, severe aortic stenosis, carotid artery stenosis, left SFA stenosis, PAD, DM 2 insulin-dependent who presents to [facility] ED 05/17/2021 a fter an episode of confusion noted early this afternoon. He had just lunch and wheeled him into living room when he "spaced out" and did not respond to her questions as usual. He was diaphoretic and thought he may be hypoglycemic and checked BSG which was elevated at 197. He did not lose consciousness, no fall. He does remember the event. thought he returned to baseline within 15-20 minutes. EMS was called and he had one recorded incidence of hypotension with SBP in 70s and bradycardia x 1 with HR reportedly in 20s. Chronic loose stools, is incontinent of urine. Has recurrent sacral wound is caring for. Allergies Allergy/AdvReac Type Severity Reaction Status Date / Time No Known Allergies Allergy Verified 05/17/21 17:42 Home Medications Medication Instructions Recorded Confirmed Type nitroglycerin 0.4 mg sublingual 0.4 mg SUBLINGUAL DIRECTED PRN 08/09/19 05/17/21 History tablet amlodipine 5 mg tablet (Norvasc) 5 mg PO QAM #30 tab 09/22/20 05/17/21 Rx aspirin 81 mg tablet,delayed 81 mg PO QAM #30 tab 09/22/20 05/17/21 Rx release baclofen 5 mg tablet 5 mg PO QAM #30 tab 09/22/20 05/17/21 Rx carvedilol 12.5 mg tablet 12.5 mg PO BID #60 tab 09/22/20 05/17/21 Rx clopidogrel 75 mg tablet (Plavix) 75 mg PO QAM #30 tab 09/22/20 05/17/21 Rx insulin glargine 100 unit/mL See Rx Instructions .ROUTE 09/22/20 05/17/21 Rx subcutaneous solution (Lantus .COMPLEX #10 ml U-100 Insulin) lisinopril 30 mg tablet 30 mg PO DAILY #30 tab 09/22/20 05/17/21 Rx ondansetron 4 mg disintegrating 4 mg PO Q4H PRN #10 tab 09/22/20 05/17/21 Rx tablet insulin aspart U-100 100 unit/mL 10 unit SUBCUT AC 01/11/21 05/17/21 History subcutaneous solution (Novolog U-100 Insulin aspart) metformin 1,000 mg tablet 500 mg PO BID 01/11/21 05/17/21 History tamsulosin 0.4 mg capsule 0.4 mg PO HS 01/11/21 05/17/21 History atorvastatin 80 mg tablet 80 mg PO QPM 05/17/21 05/17/21 History warfarin 2.5 mg tablet 2.5 mg PO MO@1600 05/17/21 05/17/21 History warfarin 5 mg tablet 7 mg PO SUTUWETHFRSA@1600 05/17/21 05/17/21 History Patient History Medical History 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" Aortic valve stenosis BPH with obstruction/lower urinary tract symptoms CAD (coronary artery disease) Carotid stenosis Diabetic peripheral neuropathy associated with type 2 diabetes mellitus Dyslipidemia Hemiplegia affecting right dominant side History of CVA (cerebrovascular accident) History of pancreatitis HTN (hypertension) Hypomagnesemia Monoplegia affecting right dominant side Obesity Osteomyelitis of great toe of right foot Proliferative diabetic retinopathy Retinal edema Right foot drop Status post cerebrovascular accident Status post myocardial infarction Superior mesenteric artery stenosis Type 2 diabetes mellitus Surgical History Hx of vitrectomy S/P angioplasty with stent S/P CABG x 3 S/P PTCA (percutaneous transluminal coronary angioplasty) Family History Father Heart disease Social History Smoking Status: Former smoker Tobacco Type: Cigarettes Second Hand Exposure: No; Hx Alcohol Use: No Hx Substance Use: No Preferred Language: Hungarian Communication Ability: Impaired Visual Impairment: No Limitations Hearing Ability: Normal Inbound Call Center Representative Required: No Beliefs That Will Affect Care: None marital status: Current Living Situation: Spouse Current Living Situation Comment: Lives with in a split level home but he is in basement current occupational status: disabled Other Information That Helps Us Care for You: No Feels Safe at Home: Yes Safety Concerns: Feels Safe At This Time Assistive Devices: Brace/Splint/Immobilizer, Glasses and Wheelchair Results & Data ([facility]) Vital Signs (Past 12 Hours) Vital Signs Temp Pulse Pulse Resp BP Pulse Ox Pulse Ox 05/18/21 09:59 36.9 C 82 86 17 127/73 97 05/18/21 07:00 36.8 C 78 18 136/83 96 05/18/21 06:00 72 14 99/63 L 96 05/18/21 05:00 61 12 98/47 L 99 05/18/21 04:00 67 12 102/52 L 96 05/18/21 03:22 70 16 107/70 97 05/18/21 01:58 69 18 125/55 L 94 05/18/21 00:53 77 16 113/56 L 95 97 Laboratory Results Abnormal lab results 05/17/21 05/17/21 05/17/21 Range/Units 15:18 15:18 15:35 WBC 11.89 H (4.8-10.8) K/uL Hgb (14.0-18.0) g/dL Hct (42-52) % MCV 78.2 L (80-100) fL MCH (25-34) pg MCHC (32-36) g/dL RDW Coeff of Caroline 15.0 H (11.5-14.5) % MPV 10.5 H (7.4-10.4) fL Neut # (Auto) 9.52 H (1.4-6.5) K/uL [place] # (Auto) 0.76 H (0.11-0.59) K/uL Immature Gran # (Auto) 0.04 H (0.00-0.02) K/uL PT 39.2 H (9.0-12.0) Seconds INR 4.3 H (0.9-1.1) APTT 36.7 H (21.0-31.0) Seconds Chloride (98-107) mmol/L BUN (7-18) mg/dl Glucose 187 H (70-99) mg/dl POC Glucose (70-99) mg/dl Magnesium 1.6 L (1.8-2.4) mg/dl Alkaline Phosphatase 119 H (45-117) U/L Globulin 4.7 H (2.5-4.0) gm/dl Albumin/Globulin Ratio 0.7 L (0.9-2) 05/17/21 05/18/21 05/18/21 Range/Units 21:58 04:38 04:38 WBC (4.8-10.8) K/uL Hgb 12.0 L (14.0-18.0) g/dL Hct 37.6 L (42-52) % MCV 78.0 L (80-100) fL MCH 24.9 L (25-34) pg MCHC 31.9 L (32-36) g/dL RDW Coeff of Caroline 15.0 H (11.5-14.5) % MPV 10.7 H (7.4-10.4) fL Neut # (Auto) (1.4-6.5) K/uL [place] # (Auto) (0.11-0.59) K/uL Immature Gran # (Auto) (0.00-0.02) K/uL PT 41.1 H (9.0-12.0) Seconds INR 4.6 H (0.9-1.1) APTT (21.0-31.0) Seconds Chloride (98-107) mmol/L BUN (7-18) mg/dl Glucose (70-99) mg/dl POC Glucose 210 H (70-99) mg/dl Magnesium (1.8-2.4) mg/dl Alkaline Phosphatase (45-117) U/L Globulin (2.5-4.0) gm/dl Albumin/Globulin Ratio (0.9-2) 05/18/21 05/18/21 Range/Units 04:38 07:02 WBC (4.8-10.8) K/uL Hgb (14.0-18.0) g/dL Hct (42-52) % MCV (80-100) fL MCH (25-34) pg MCHC (32-36) g/dL RDW Coeff of Caroline (11.5-14.5) % MPV (7.4-10.4) fL Neut # (Auto) (1.4-6.5) K/uL [place] # (Auto) (0.11-0.59) K/uL Immature Gran # (Auto) (0.00-0.02) K/uL PT (9.0-12.0) Seconds INR (0.9-1.1) APTT (21.0-31.0) Seconds Chloride 108 H (98-107) mmol/L BUN 19 H (7-18) mg/dl Glucose 131 H (70-99) mg/dl POC Glucose 133 H (70-99) mg/dl Magnesium (1.8-2.4) mg/dl Alkaline Phosphatase (45-117) U/L Globulin (2.5-4.0) gm/dl Albumin/Globulin Ratio (0.9-2) Diagnostic Findings CT head-No acute intracranial hemorrhage, no evidence of acute territorial infarction or other acute intracranial disease process. CXR-No acute abnormalities and in particular no airspace opacity to suggest pneumonia. MRI brain-. No acute infarct or intracranial hemorrhage. Moderate atrophy and microvascular ischemic changes. Old lacunar infarcts within the bilateral basal ganglia and sarabjit.
[2021-05-18 12:24] LABS: Adenovirus F 40/41 PCR Not Detected (NotDetected); Astrovirus PCR Not Detected (NotDetected); Campylobacter PCR Not Detected (NotDetected); Clostridium diff Toxin A/B PCR Not Detected (NotDetected); Cryptosporidium PCR Not Detected (NotDetected); Cyclospora cayetanensis PCR Not Detected (NotDetected); Entamoeba histolytica PCR Not Detected (NotDetected); Enteroaggregative E.coli(EAEC) Not Detected (NotDetected); Enteropathogenic E.coli (EPEC) Not Detected (NotDetected); Enterotoxigenic E.coli (ETEC) Not Detected (NotDetected); Giardia lamblia PCR Not Detected (NotDetected); Norovirus GI/GII PCR Not Detected (NotDetected); Plesiomonas shigelloides PCR Not Detected (NotDetected); Rotavirus A PCR Not Detected (NotDetected); Salmonella PCR Not Detected (NotDetected); Sapovirus PCR Not Detected (NotDetected); Shiga-like Toxin E.coli (STEC) Not Detected (NotDetected); Shigella/Enteroinvasive E.coli Not Detected (NotDetected); Vibrio cholerae PCR Not Detected (NotDetected); Vibrio species PCR Not Detected (NotDetected); Yersinia enterocolitica PCR Not Detected (NotDetected)
--- NOTE | 2021-05-18 14:59 | Hospitalist Progress Note ---
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 Back to baseline after 15-20 minutes of confusion with transient hypotensive and bradycardic episodes Vital signs stable since arrival, no repeat bradycardia or hypotension. Mild leukocytosis of 11, TSH wnl, covid PCR pending CT head and CXR without acute abnormality, ECG without significant change from previous Monitor on telemetry for bradyarrhythmia, repeat MRI brain wo con due to stroke history, follow UA and covid PCR results Holding today's coumadin dose since supratherapeutic. Repeat INR in AM Appreciate cardiology input and recommendation His blood pressure medications have been reduced to carvedilol 6.25 mg twice daily and lisinopril to 20 mg daily Blood pressure has been maintaining at normal range (4) Supratherapeutic INR: Plan: Home regimen Mon 2.5mg, 7mg all other days, follows with anticoagulation clinic INR 4.3 - holding this evening's coumadin dose Repeat INR in AM-4.6 today and will hold Coumadin dose (5) Paroxysmal atrial fibrillation: Plan: Hold coumadin this evening. Continue carvedilol (6) Diarrhea: Plan: Ongoing loose stools at home. C diff and stool cx pending Stool test has been negative (7) CAD (coronary artery disease): Plan: Denies any cardiac symptoms (8) Peripheral arterial disease: Plan: History of CABG x3, carotid artery stenosis, SMA stenosis, PAD Continue with aspirin, statin, Plavix, Coreg, lisinopril - holding Coumadin while INR supratherapeutic (9) HTN (hypertension): Plan: Normotensive. Continue home medications (10) Type 2 diabetes mellitus: Plan: A1c 7.2 04/26 Hold home agents Basal/bolus insulin while in-patient BSG AC HS (11) Aortic valve stenosis: Plan: Degree of aortic stenosis is worse compared to 11/2019, no intervention per cardiology on previous admission due to stroke risk DVT Ppx: Holding coumadin while INR supratherapeutic Code status: FULL PCP: Lisa Dispo: Observation med tele Discussed with the in detail Admission and Anticipated Discharge Date Admission Date: May 17, 2021 Subjective 05/18/2021 The patient was seen and examined in medical telemetry unit He remains stable and denies any symptoms He has not had any more new symptoms and her relevant investigations remain unremarkable Review of Systems Review of Systems: All systems reviewed and are unremarkable except as noted below Neurologic: Has prior stroke with right hemiparesis and dysarthria no problem with swallowing Physical Exam Physical Exam: Lying in bed comfortably Constitutional: well developed and well nourished; not ill appearing Eyes: PERRL, conjunctivae normal, anicteric sclerae ENMT: external ear and nose normal, oropharynx normal Neck: trachea midline, no thyromegaly Respiratory: no respiratory distress Auscultation: lungs clear to auscultation bilaterally Cardiovascular: Rate/Rhythm: regular rate and regular rhythm; not tachycardic Heart Sounds: normal S1 and normal S2; no murmur Extremities: + edema (Trace edema on the right side) Gastrointestinal (Abdomen): Inspection/Auscultation: abdomen not distended Percussion/Palpation: abdomen soft; abdomen nontender Musculoskeletal: No acute arthritis in any joint Neurologic: Alert and awake, oriented x3. Mild to moderate dysarthria. Right hemiparesis Lymphatic: no cervical or axillary lymphadenopathy Results & Data Results & Data ([facility]) Vital Signs (Past 12 Hours) Vital Signs Temp Pulse Pulse Resp BP Pulse Ox 05/18/21 09:59 36.9 C 82 86 17 127/73 97 05/18/21 07:00 36.8 C 78 18 136/83 96 05/18/21 06:00 72 14 99/63 L 96 05/18/21 05:00 61 12 98/47 L 99 05/18/21 04:00 67 12 102/52 L 96 05/18/21 03:22 70 16 107/70 97 Laboratory Results Short CBC 05/17/21 05/18/21 Range/Units 15:18 04:38 WBC 11.89 H 6.71 (4.8-10.8) K/uL Hgb 14.2 12.0 L (14.0-18.0) g/dL Hct 44.2 37.6 L (42-52) % Plt Count 319 274 (130-400) K/uL BMP 05/17/21 05/18/21 15:18 04:38 Sodium 139 141 Potassium 4.3 3.7 Chloride 104 108 H Carbon Dioxide 28 28 BUN 15 19 H Creatinine 1.12 1.10 Glucose 187 H 131 H Calcium 9.2 8.7 Cardiac Enzymes 05/17/21 Range/Units 15:18 Troponin I < 0.015 (0-0.045) ng/ml Liver Function 05/17/21 Range/Units 15:18 Total Bilirubin 0.4 (0.2-1) mg/dl AST 15 (15-37) U/L ALT 26 (12-78) Alkaline Phosphatase 119 H (45-117) U/L Albumin 3.4 (3.4-5.0) gm/dl Medications Administered Current Inpatient Medications Acetaminophen (Acetaminophen 325 Mg Tab) 650 mg PO Q4H PRN PRN Reason: Pain or Fever Stop: 06/16/21 21:28 Amlodipine Besylate (Amlodipine Besylate 5 Mg Tab) [facility] [place]: 06/17/21 08:59 Last Admin: 05/18/21 08:25 Dose: 5 mg Documented by: Aspirin (Aspirin 81 Mg Ectab) 81 [facility] [place] Stop: 06/17/21 08:59 Last Admin: 05/18/21 08:24 Dose: 81 mg Documented by: Atorvastatin Calcium (Atorvastatin 40 Mg Tab) 80 mg PO QPM [facility] Stop: 06/16/21 21:28 Last Admin: 05/17/21 22:09 Dose: 80 mg Documented by: Baclofen (Baclofen 10 Mg Tab) 5 mg PO QAM [facility] Stop: 06/17/21 08:59 Last Admin: 05/18/21 08:24 Dose: 5 mg Documented by: Carvedilol (Carvedilol 6.25 Mg Tab) 6.25 mg PO BID [facility] Stop: 06/17/21 20:59 Clopidogrel Bisulfate (Clopidogrel Bisulfate 75 Mg Tab) 75 mg PO QAM [facility] Stop: 06/17/21 08:59 Last Admin: 05/18/21 08:25 Dose: 75 mg Documented by: Dextrose (Dextrose 50% 50 Ml Syringe) 25 - 50 ml IV UD PRN; Protocol PRN Reason: Hypoglycemia Protocol Stop: 06/16/21 21:28 Glucagon (Glucagon For Inj 1 Mg Vial) 1 mg SQ UD PRN; Protocol PRN Reason: Hypoglycemia Protocol Stop: 06/16/21 21:28 Glucose (Glucose 10 Tabs/Tube) 4 - 8 tabs PO UD PRN; Protocol PRN Reason: Hypoglycemia Protocol Stop: 06/16/21 21:28 Glucose (Glucose 40% Gel 15 Gm Tube) 15 - 30 gm PO UD PRN; Protocol PRN Reason: Hypoglycemia Protocol Stop: 06/16/21 21:28 Insulin Aspart (Insulin Aspart Per Unit) 0 units SC ACHS [facility] Stop: 06/16/21 21:28 Last Admin: 05/18/21 12:20 Dose: 4 units Documented by: Insulin Glargine (Insulin Glargine Solostar 100 Units/Ml 3 Ml Pen) 0 - 14 units SC BID [facility]; Protocol Stop: 06/16/21 21:28 Last Admin: 05/18/21 09:33 Dose: 10 units Documented by: Lisinopril (Lisinopril 20 Mg Tab) 20 mg PO DAILY [facility] Stop: 06/18/21 08:59 Miscellaneous (Carbohydrates For Hypoglycemia ) 15 - 30 gm PO UD PRN PRN Reason: Hypoglycemia Protocol Stop: 06/16/21 21:28 Ondansetron HCl (Ondansetron Inj 2 Mg/Ml 2 Ml Vial) 4 mg IV Q6H PRN PRN Reason: Nausea Stop: 06/16/21 21:28 Polyethylene Glycol (Polyethylene (Miralax) 17 Gm Pack) 17 gm PO DAILY PRN PRN Reason: Constipation Stop: 06/16/21 21:28 Tamsulosin HCl (Tamsulosin Hcl 0.4 Mg Cap) 0.4 mg PO HS [facility] Stop: 06/16/21 21:28 Last Admin: 05/17/21 22:09 Dose: 0.4 mg Documented by: (1) Diarrhea Diarrhea type: unspecified type Qualified Code(s): R19.7 - Diarrhea, unspecified
[2021-05-18] MEDS: carvediloL 6.25 MG TAB PO SCH (20:11)
[2021-05-18] MEDS: ATORVASTATIN 40 MG TAB PO SCH (20:11)
[2021-05-18] MEDS: TAMSULOSIN HCL 0.4 MG CAP PO SCH (20:11)
[2021-05-18 21:16] LABS: Appearance Urine Clear (Clear); Bilirubin Urine Negative (Negative); Blood Urine Negative (Negative); Color Urine Yellow; Glucose Urine UA Negative (Negative); Ketones Urine Trace (Negative); Leukocyte Esterase Urine Negative (Negative); Nitrite Urine Negative (Negative); Protein Urine Negative (Negative); Specific Gravity Urine 1.024 (1.000-1.030); Urobilinogen Urine Negative (Negative)
[2021-05-19 07:35] LABS: Basophils # (auto) 0.02 K/uL (0-0.2); Basophils % (auto) 0.3 %; Eosinophils # (auto) 0.18 K/uL (0-0.5); Eosinophils % (auto) 3.1 %; Hematocrit (blood only) 35.1 % (42-52); Hemoglobin 11.3 g/dL (14.0-18.0); Lymphocytes # (auto) 1.53 K/uL (1.2-3.4); Lymphocytes % (auto) 26.6 %; Mean Corpuscular Hemoglobin 24.8 pg (25-34); Mean Corpuscular Hgb Conc 32.2 g/dL (32-36); Mean Corpuscular Volume 77.1 fL (80-100); Mean Platelet Volume 10.8 fL (7.4-10.4); Monocytes # (auto) 0.54 K/uL (0.11-0.59); Monocytes % (auto) 9.4 %; Neutrophils # (auto) 3.49 K/uL (1.4-6.5); Neutrophils % (auto) 60.6 %; Platelet Count 242 K/uL (130-400); Red Blood Count 4.55 M/uL (4.7-6.1); White Blood Count 5.76 K/uL (4.8-10.8)
[2021-05-19 07:39] LABS: INR 2.1 (0.9-1.1); Prothrombin Time 20.3 Seconds (9.0-12.0)
[2021-05-19] MEDS: carvediloL 6.25 MG TAB PO SCH (07:49)
[2021-05-19] MEDS: amLODIPine BESYLATE 5 MG TAB PO SCH (07:50)
[2021-05-19] MEDS: lisinopril 20 MG TAB PO SCH (07:50)
[2021-05-19 08:02] LABS: BUN Creatinine Ratio 22.4 (10-20); Calcium 8.3 mg/dl (8.5-10.1); Creatinine Clr Calc Pharmacy 133.4 ml/min; Est GFR (African American) 119.3 ml/min; Est GFR (Non-African American) 102.9 ml/min; Magnesium 1.5 mg/dl (1.8-2.4)
[2021-05-19] MEDS: ASPIRIN 81 MG ECTAB PO SCH (08:02)
[2021-05-19] MEDS: INSULIN GLARGINE SOLOSTAR 100 UNITS/ML 3 ML PEN SC SCH ×2 (08:02→21:19)
[2021-05-19] MEDS: CLOPIDOGREL BISULFATE 75 MG TAB PO SCH (08:03)
[2021-05-19] MEDS: INSULIN ASPART PER UNIT SC SCH ×4 (08:04→21:21)
[2021-05-19 08:23] LABS: Potassium 3.6 mmol/L (3.5-5.1)
[2021-05-19] MEDS: MAGNESIUM SULFATE / D5W 1 GM/100 ML BAG IV SCH ×2 (09:54→11:40)
[2021-05-19] MEDS: POTASSIUM ACETATE/NSS 10 MEQ/105 ML BAG IV SCH ×2 (09:54→10:54)
--- NOTE | 2021-05-19 10:03 | Cardiology Progress Note ---
Date of Service May 19, 2021 Assessment & Plan (1) Altered mental status: (2) Status post cerebrovascular accident: (3) CAD (coronary artery disease): (4) Aortic valve stenosis: (5) Peripheral arterial disease: (6) Acute hypotension: Plan: Patient is a 61-year-old male with very complex history as outlined but notable for diffuse vasculopathy including initial coronary bypass grafting at age 46, atherosclerotic peripheral vascular disease and cerebrovascular disease. He had evidence of past recurrent stroke with residual right hemiplegia and expressive aphasia most recent event January 2021. In addition to longstanding diabetes hypertension patient is noted to have borderline severe calcific aortic stenosis. Patient presented after acute mental status change confusion and diaphoresis episode at home with transient hypotension and bradycardia observed post emesis. No acute findings on EKG and troponin on initial evaluation. Echocardiogram reviewed from January which did demonstrate borderline severe aortic stenosis but not critical aortic stenosis nor of severity to likely cause syncope at rest No arrhythmias observed since admission no prior history of atrial fibrillation with patient on dual antiplatelet therapy and warfarin due to recurrent cerebrovascular events Recommendations: Aortic valve disease as noted above concern but not likely to cause rest symptoms patient extremely high/prohibitively high risk valvular intervention candidate No further bradycardia arrhythmias, blood pressure higher this morning patient notes difficulty sleeping We will increase carvedilol back to 12.5 mg twice per day continue reduced dose lisinopril. No plans or indications for further cardiac testing and stable for discharge from cardiac standpoint Admission and Anticipated Discharge Date Admission Date: May 17, 2021 Subjective Patient was seen and examined, chart, medications, telemetry reviewed. Patient without cardiac complaint some difficulties with expressive aphasia but notes frustration regarding hospital presents, agitated patient sharing room No arrhythmias on telemetry. Blood pressures without hypotension. Physical Exam Constitutional: + language barrier (Secondary to expressive aphasia); no acute distress Eyes: PERRL, conjunctivae normal, anicteric sclerae ENMT: external ear and nose normal, oropharynx normal Neck: trachea midline, no thyromegaly Respiratory: normal respiratory effort, lungs clear to auscultation Cardiovascular: Rate/Rhythm: regular rate and regular rhythm Heart Sounds: normal S1 and + murmur (Grade 2/6 to 3/6 systolic ejection murmur); + abnormal S2 (Diminished) and no gallop Palpation: normal PMI Vessels: normal carotid upstroke and radial pulses present; no JVD Extremities: no edema Gastrointestinal (Abdomen): normal bowel sounds, soft, nontender, no hepatosplenomegaly Musculoskeletal: no cyanosis or clubbing, extremities motor strength 5/5 Skin: no rashes, warm and dry Neurologic: PERRL, EOMI, accommodation nl, no face palsy, no dysarthria Speech / Cognition: + expressive aphasia Psychiatric: A+Ox3, euthymic affect Orientation: alert Results & Data ([facility]) Vital Signs (Past 12 Hours) Vital Signs Temp Pulse Pulse Resp BP Pulse Ox 05/19/21 07:18 36.7 C 80 20 170/82 H 96 05/19/21 07:00 72 05/18/21 23:33 64 05/18/21 22:47 36.7 C 69 20 126/73 97 Laboratory Results Laboratory Results - last 24 hr 05/18/21 05/18/21 05/18/21 11:41 16:28 20:13 WBC RBC Hgb Hct MCV MCH MCHC RDW Std Deviation RDW Coeff of Caroline Plt Count MPV Immature Gran % (Auto) Neut % (Auto) Lymph % (Auto) [place] % (Auto) Eos % (Auto) Baso % (Auto) Neut # (Auto) Lymph # (Auto) [place] # (Auto) Eos # (Auto) Baso # (Auto) Immature Gran # (Auto) PT INR Sodium Potassium Chloride Carbon Dioxide Anion Gap BUN Creatinine Est Cr Clr Drug Dosing Est GFR ( Amer) Est GFR (Non-Af Amer) BUN/Creatinine Ratio Glucose POC Glucose 231 H 162 H 179 H Calcium Magnesium Urine Color Urine Appearance Urine pH Ur Specific [place] Urine Protein Urine Glucose (UA) Urine Ketones Urine Blood Urine Nitrite Urine Bilirubin Urine Urobilinogen Ur Leukocyte Esterase Stl C. cayetanensis PCR Stool Rotavirus A PCR Stl Adenov F PCR Stool Astrovirus (PCR) Stool Campylobacter PCR Stl C. diff Tox B Gene Stl C. diff Tox A/B PCR Stool Cryptosporidium PCR Stl E.coli Shiga Tox PCR Stl Enterotoxigenic E PCR Stool EPEC (PCR) Stool EAEC (PCR) Stl E. histolytica PCR Stool Giardia Lamblia PCR Stool Salmonella PCR Stool Sapovirus (PCR) Stl P. shigelloides PCR Stl Shigella/EIEC PCR St Y.enterocolitica PCR Stool Vibrio (PCR) Stl Vibrio cholerae PCR Stl Norovirus GI/GII PCR 12/13/21 12/13/21 12/13/21 21:00 Unknown Unknown WBC RBC Hgb Hct MCV MCH MCHC RDW Std Deviation RDW Coeff of Caroline Plt Count MPV Immature Gran % (Auto) Neut % (Auto) Lymph % (Auto) [place] % (Auto) Eos % (Auto) Baso % (Auto) Neut # (Auto) Lymph # (Auto) [place] # (Auto) Eos # (Auto) Baso # (Auto) Immature Gran # (Auto) PT INR Sodium Potassium Chloride Carbon Dioxide Anion Gap BUN Creatinine Est Cr Clr Drug Dosing Est GFR ( Amer) Est GFR (Non-Af Amer) BUN/Creatinine Ratio Glucose POC Glucose Calcium Magnesium Urine Color Yellow Urine Appearance Clear Urine pH 5.0 Ur Specific [place] 1.024 Urine Protein Negative Urine Glucose (UA) Negative Urine Ketones Trace H Urine Blood Negative Urine Nitrite Negative Urine Bilirubin Negative Urine Urobilinogen Negative Ur Leukocyte Esterase Negative Stl C. cayetanensis PCR Not Detected Stool Rotavirus A PCR Not Detected Stl Adenov F 40/41 PCR Not Detected Stool Astrovirus (PCR) Not Detected Stool Campylobacter PCR Not Detected Stl C. diff Tox B Gene Cancelled Stl C. diff Tox A/B PCR Not Detected Stool Cryptosporidium PCR Not Detected Stl E.coli Shiga Tox PCR Not Detected Stl Enterotoxigenic E PCR Not Detected Stool EPEC (PCR) Not Detected Stool EAEC (PCR) Not Detected Stl E. histolytica PCR Not Detected Stool Giardia Lamblia PCR Not Detected Stool Salmonella PCR Not Detected Stool Sapovirus (PCR) Not Detected Stl P. shigelloides PCR Not Detected Stl Shigella/EIEC PCR Not Detected St Y.enterocolitica PCR Not Detected Stool Vibrio (PCR) Not Detected Stl Vibrio cholerae PCR Not Detected Stl Norovirus GI/GII PCR Not Detected 05/19/21 05/19/21 05/19/21 07:09 07:09 07:09 WBC 5.76 RBC 4.55 L Hgb 11.3 L Hct 35.1 L MCV 77.1 L MCH 24.8 L MCHC 32.2 RDW Std Deviation 42.0 RDW Coeff of Caroline 15.0 H Plt Count 242 MPV 10.8 H Immature Gran % (Auto) 0.0 Neut % (Auto) 60.6 Lymph % (Auto) 26.6 [place] % (Auto) 9.4 Eos % (Auto) 3.1 Baso % (Auto) 0.3 Neut # (Auto) 3.49 Lymph # (Auto) 1.53 [place] # (Auto) 0.54 Eos # (Auto) 0.18 Baso # (Auto) 0.02 Immature Gran # (Auto) 0.00 PT 20.3 H INR 2.1 H Sodium 138 Potassium 3.6 Chloride 106 Carbon Dioxide 27 Anion Gap 5.0 BUN 15 Creatinine 0.66 D Est Cr Clr Drug Dosing 133.4 Est GFR ( Amer) 119.3 Est GFR (Non-Af Amer) 102.9 BUN/Creatinine Ratio 22.4 H Glucose 148 H POC Glucose Calcium 8.3 L Magnesium 1.5 L Urine Color Urine Appearance Urine pH Ur Specific [place] Urine Protein Urine Glucose (UA) Urine Ketones Urine Blood Urine Nitrite Urine Bilirubin Urine Urobilinogen Ur Leukocyte Esterase Stl C. cayetanensis PCR Stool Rotavirus A PCR Stl Adenov F 40/41 PCR Stool Astrovirus (PCR) Stool Campylobacter PCR Stl C. diff Tox B Gene Stl C. diff Tox A/B PCR Stool Cryptosporidium PCR Stl E.coli Shiga Tox PCR Stl Enterotoxigenic E PCR Stool EPEC (PCR) Stool EAEC (PCR) Stl E. histolytica PCR Stool Giardia Lamblia PCR Stool Salmonella PCR Stool Sapovirus (PCR) Stl P. shigelloides PCR Stl Shigella/EIEC PCR St Y.enterocolitica PCR Stool Vibrio (PCR) Stl Vibrio cholerae PCR Stl Norovirus GI/GII PCR 05/19/21 07:35 WBC RBC Hgb Hct MCV MCH MCHC RDW Std Deviation RDW Coeff of Caroline Plt Count MPV Immature Gran % (Auto) Neut % (Auto) Lymph % (Auto) [place] % (Auto) Eos % (Auto) Baso % (Auto) Neut # (Auto) Lymph # (Auto) [place] # (Auto) Eos # (Auto) Baso # (Auto) Immature Gran # (Auto) PT INR Sodium Potassium Chloride Carbon Dioxide Anion Gap BUN Creatinine Est Cr Clr Drug Dosing Est GFR ( Amer) Est GFR (Non-Af Amer) BUN/Creatinine Ratio Glucose POC Glucose 150 H Calcium Magnesium Urine Color Urine Appearance Urine pH Ur Specific [place] Urine Protein Urine Glucose (UA) Urine Ketones Urine Blood Urine Nitrite Urine Bilirubin Urine Urobilinogen Ur Leukocyte Esterase Stl C. cayetanensis PCR Stool Rotavirus A PCR Stl Adenov F 40/41 PCR Stool Astrovirus (PCR) Stool Campylobacter PCR Stl C. diff Tox B Gene Stl C. diff Tox A/B PCR Stool Cryptosporidium PCR Stl E.coli Shiga Tox PCR Stl Enterotoxigenic E PCR Stool EPEC (PCR) Stool EAEC (PCR) Stl E. histolytica PCR Stool Giardia Lamblia PCR Stool Salmonella PCR Stool Sapovirus (PCR) Stl P. shigelloides PCR Stl Shigella/EIEC PCR St Y.enterocolitica PCR Stool Vibrio (PCR) Stl Vibrio cholerae PCR Stl Norovirus GI/GII PCR (1) Altered mental status Altered mental status type: unspecified Qualified Code(s): R41.82 - Altered mental status, unspecified
[2021-05-19] MEDS ORDERED: carvediloL 6.25 MG TAB PO ONE (10:04)
[2021-05-19] MEDS: BACLOFEN 10 MG TAB PO SCH (10:50)
--- NOTE | 2021-05-19 13:59 | Hospitalist Progress Note ---
Date of Service May 19, 2021 Assessment & Plan (1) Near syncope: Plan: No significant syncope and/or strokelike symptoms at presentation or later on following admission One episode of hypotension noted by the paramedics Stroke work-up has been negative including MRI of the brain which did not show any new stroke or any other significant findings Lipid profile has been unremarkable The patient did not have any new and/or persisting symptoms Discussed with neurologist and the consult was canceled Has had physical therapy and recommended 24-hour care/SNF Discussed with the and she will take her home tomorrow with home health and home therapy (2) Bradycardia: Plan: No more bloody arrhythmias (3) Acute hypotension: Plan: This is a 61yo M with a PMH of 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 Back to baseline after 15-20 minutes of confusion with transient hypotensive and bradycardic episodes Vital signs stable since arrival, no repeat bradycardia or hypotension. Mild leukocytosis of 11, TSH wnl, covid PCR pending CT head and CXR without acute abnormality, ECG without significant change from previous Monitor on telemetry for bradyarrhythmia, repeat MRI brain wo con due to stroke history, follow UA and covid PCR results Holding today's coumadin dose since supratherapeutic. Repeat INR in AM Appreciate cardiology input and recommendation His blood pressure medications have been reduced to carvedilol 6.25 mg twice daily and lisinopril to 20 mg daily Blood pressure has been maintaining at normal range Blood pressure medications have been adjusted and seems to be stable (4) Supratherapeutic INR: Plan: Home regimen Mon 2.5mg, 7mg all other days, follows with anticoagulation clinic INR 4.3 - holding this evening's coumadin dose Repeat INR in AM-4.6 today and will hold Coumadin dose INR is 2.1 today and will restart Coumadin (5) Paroxysmal atrial fibrillation: Plan: Hold coumadin this evening. Continue carvedilol (6) Diarrhea: Plan: Ongoing loose stools at home. C diff and stool cx pending Stool test has been negative (7) CAD (coronary artery disease): Plan: Denies any cardiac symptoms (8) Peripheral arterial disease: Plan: History of CABG x3, carotid artery stenosis, SMA stenosis, PAD Continue with aspirin, statin, Plavix, Coreg, lisinopril - holding Coumadin while INR supratherapeutic (9) HTN (hypertension): Plan: Normotensive. Continue home medications (10) Type 2 diabetes mellitus: Plan: A1c 7.2 04/26 Hold home agents Basal/bolus insulin while in-patient BSG AC HS (11) Aortic valve stenosis: Plan: Degree of aortic stenosis is worse compared to 11/2019, no intervention per cardiology on previous admission due to stroke risk DVT Ppx: Holding coumadin while INR supratherapeutic Code status: FULL PCP: Lisa Dispo: Observation med tele Discussed with the in detail Admission and Anticipated Discharge Date Admission Date: May 17, 2021 Subjective 05/18/2021 The patient was seen and examined in medical telemetry unit He remains stable and denies any symptoms He has not had any more new symptoms and her relevant investigations remain unremarkable 05/19/2021 The patient was seen and examined in medical telemetry unit He remains stable and denies any symptoms His blood pressure is maintained Review of Systems Review of Systems: All systems reviewed and are unremarkable except as noted below Neurologic: Has prior stroke with right hemiparesis and dysarthria no problem with swallowing Physical Exam Physical Exam: Lying in bed comfortably Constitutional: well developed and well nourished; not ill appearing Eyes: PERRL, conjunctivae normal, anicteric sclerae ENMT: external ear and nose normal, oropharynx normal Neck: trachea midline, no thyromegaly Respiratory: no respiratory distress Auscultation: lungs clear to auscultation bilaterally Cardiovascular: Rate/Rhythm: regular rate and regular rhythm; not tachycardic Heart Sounds: normal S1 and normal S2; no murmur Extremities: + edema (Trace edema on the right side) Gastrointestinal (Abdomen): Inspection/Auscultation: abdomen not distended Percussion/Palpation: abdomen soft; abdomen nontender Musculoskeletal: No acute arthritis in any joint Neurologic: Alert and awake. Has right hemiparesis from old stroke without any new neurologic symptoms Lymphatic: no cervical or axillary lymphadenopathy Results & Data Results & Data ([facility]) Vital Signs (Past 12 Hours) Vital Signs Temp Pulse Pulse Resp BP Pulse Ox 05/19/21 10:50 80 143/81 H 05/19/21 07:18 36.7 C 80 20 170/82 H 96 05/19/21 07:00 72 Laboratory Results Short CBC 05/19/21 Range/Units 07:09 WBC 5.76 (4.8-10.8) K/uL Hgb 11.3 L (14.0-18.0) g/dL Hct 35.1 L (42-52) % Plt Count 242 (130-400) K/uL BMP 05/19/21 07:09 Sodium 138 Potassium 3.6 Chloride 106 Carbon Dioxide 27 BUN 15 Creatinine 0.66 D Glucose 148 H Calcium 8.3 L Urine 05/18/21 Range/Units 21:00 Urine Color Yellow Urine Appearance Clear (Clear) Urine pH 5.0 (4.5-7.5) Ur Specific [place] 1.024 (1.000-1.030) Urine Protein Negative (Negative) Urine Glucose (UA) Negative (Negative) Medications Administered Current Inpatient Medications Acetaminophen (Acetaminophen 325 Mg Tab) 650 mg PO Q4H PRN PRN Reason: Pain or Fever Stop: 06/16/21 21:28 Amlodipine Besylate (A[facility]ip[facility] Besylate 5 Mg Tab) [facility] [place] Stop: 06/17/21 08:59 Last Admin: 05/19/21 07:50 Dose: 5 mg Documented by: Aspirin (Aspirin 81 Mg Ectab) [facility] [place] Stop: 06/17/21 08:59 Last Admin: 05/19/21 08:02 Dose: 81 mg Documented by: Atorvastatin Calcium (Atorvastatin 40 Mg Tab) 80 mg PO QPM [facility] Stop: 06/16/21 21:28 Last Admin: 05/18/21 20:11 Dose: 80 mg Documented by: Baclofen (Baclofen 10 Mg Tab) 5 mg PO QAM [facility] Stop: 06/17/21 08:59 Last Admin: 05/19/21 10:50 Dose: 5 mg Documented by: Carvedilol (Carvedilol 12.5 Mg Tab) 12.5 mg PO BID [facility] Stop: 06/18/21 20:59 Clopidogrel Bisulfate (Clopidogrel Bisulfate 75 Mg Tab) [facility] [place] Stop: 06/17/21 08:59 Last Admin: 05/19/21 08:03 Dose: 75 mg Documented by: Dextrose (Dextrose 50% 50 Ml Syringe) 25 - 50 ml IV UD PRN; Protocol PRN Reason: Hypoglycemia Protocol Stop: 06/16/21 21:28 Glucagon (Glucagon For Inj 1 Mg Vial) 1 mg SQ UD PRN; Protocol PRN Reason: Hypoglycemia Protocol Stop: 06/16/21 21:28 Glucose (Glucose 10 Tabs/Tube) 4 - 8 tabs PO UD PRN; Protocol PRN Reason: Hypoglycemia Protocol Stop: 06/16/21 21:28 Glucose (Glucose 40% Gel 15 Gm Tube) 15 - 30 gm PO UD PRN; Protocol PRN Reason: Hypoglycemia Protocol Stop: 06/16/21 21:28 Insulin Aspart (Insulin Aspart Per Unit) 0 units SC ACHS [facility] Stop: 06/16/21 21:28 Last Admin: 05/19/21 12:14 Dose: 8 units Documented by: Insulin Glargine (Insulin Glargine Solostar 100 Units/Ml 3 Ml Pen) 0 - 14 units SC BID [facility]; Protocol Stop: 06/16/21 21:28 Last Admin: 05/19/21 08:02 Dose: 10 units Documented by: Lisinopril (Lisinopril 20 Mg Tab) 20 mg PO DAILY [facility] Stop: 06/18/21 08:59 Last Admin: 05/19/21 07:50 Dose: 20 mg Documented by: Miscellaneous (Carbohydrates For Hypoglycemia ) 15 - 30 gm PO UD PRN PRN Reason: Hypoglycemia Protocol Stop: 06/16/21 21:28 Ondansetron HCl (Ondansetron Inj 2 Mg/Ml 2 Ml Vial) 4 mg IV Q6H PRN PRN Reason: Nausea Stop: 06/16/21 21:28 Polyethylene Glycol (Polyethylene (Miralax) 17 Gm Pack) 17 gm PO DAILY PRN PRN Reason: Constipation Stop: 06/16/21 21:28 Tamsulosin HCl (Tamsulosin Hcl 0.4 Mg Cap) 0.4 mg PO HS [facility] Stop: 06/16/21 21:28 Last Admin: 05/18/21 20:11 Dose: 0.4 mg Documented by: Warfarin Sodium (Warfarin Sod 2.5 Mg Tab) 2.5 mg PO MO@1600 [facility] Stop: 06/24/21 15:59 Warfarin Sodium (Warfarin Sod 5 Mg Tab) 5 mg PO SUTUWETHFRSA@1600 [facility] Stop: 06/18/21 15:59 Warfarin Sodium (Warfarin Sod 2 Mg Tab) 2 mg PO SUTUWETHFRSA@[address] [place] [address] Stop: 06/18/21 15:59 (1) Diarrhea Diarrhea type: unspecified type Qualified Code(s): R19.7 - Diarrhea, unspecified
--- NOTE | 2021-05-19 16:01 | Electrocardiogram Report ---
Test Reason : Blood Pressure : / mmHG Vent. Rate : 082 BPM Atrial Rate : 082 BPM P-R Int : 144 ms QRS Dur : 090 ms QT Int : 386 ms P-R-T Axes : 069 058 124 degrees QTc Int : 450 ms Normal sinus rhythm Inferior infarct (cited on or before 13-OCT-2006) Anterolateral infarct (cited on or before 13-OCT-2006) Abnormal ECG When compared with ECG of 17-MAY-2021 14:34, No significant change was found Confirmed by Clemente Samayoa ([id number]) on 05/19/2021 4:01:45 PM Referred By: REFERRED SELF Confirmed By:Clemente Samayoa
[2021-05-19] MEDS: WARFARIN SOD 2 MG TAB PO SCH (16:11)
[2021-05-19] MEDS: WARFARIN SOD 5 MG TAB PO SCH (16:11)
[2021-05-19] MEDS: carvediloL 12.5 MG TAB PO SCH (21:19)
[2021-05-19] MEDS: ATORVASTATIN 40 MG TAB PO SCH (21:19)
[2021-05-19] MEDS: TAMSULOSIN HCL 0.4 MG CAP PO SCH (21:19)
[2021-05-20] MEDS: CLOPIDOGREL BISULFATE 75 MG TAB PO SCH (08:16)
[2021-05-20] MEDS: lisinopril 20 MG TAB PO SCH (08:16)
[2021-05-20] MEDS: carvediloL 12.5 MG TAB PO SCH ×2 (08:16→21:37)
[2021-05-20] MEDS: amLODIPine BESYLATE 5 MG TAB PO SCH (08:16)
[2021-05-20] MEDS: ASPIRIN 81 MG ECTAB PO SCH (08:16)
[2021-05-20] MEDS: BACLOFEN 10 MG TAB PO SCH (08:20)
[2021-05-20] MEDS: INSULIN GLARGINE SOLOSTAR 100 UNITS/ML 3 ML PEN SC SCH ×2 (08:22→21:36)
[2021-05-20] MEDS: INSULIN ASPART PER UNIT SC SCH ×4 (08:24→21:37)
[2021-05-20 08:35] LABS: INR 1.2 (0.9-1.1); Prothrombin Time 12.2 Seconds (9.0-12.0)
--- NOTE | 2021-05-20 09:46 | Cardiology Progress Note ---
Date of Service May 20, 2021 Assessment & Plan (1) Altered mental status: (2) Status post cerebrovascular accident: (3) CAD (coronary artery disease): (4) Aortic valve stenosis: (5) Peripheral arterial disease: (6) Acute hypotension: Plan: Patient is a 61-year-old male with very complex history as outlined but notable for diffuse vasculopathy including initial coronary bypass grafting at age 46, atherosclerotic peripheral vascular disease and cerebrovascular disease. He had evidence of past recurrent stroke with residual right hemiplegia and expressive aphasia most recent event January 2021. In addition to longstanding diabetes hypertension patient is noted to have borderline severe calcific aortic stenosis. Patient presented after acute mental status change confusion and diaphoresis episode at home with transient hypotension and bradycardia observed post emesis. No acute findings on EKG and troponin on initial evaluation. Echocardiogram reviewed from January which did demonstrate borderline severe aortic stenosis but not critical aortic stenosis nor of severity to likely cause syncope at rest No arrhythmias observed since admission no prior history of atrial fibrillation with patient on dual antiplatelet therapy and warfarin due to recurrent cerebrovascular events Recommendations: Aortic valve disease as noted above concern but not likely to cause rest symptoms patient extremely high/prohibitively high risk valvular intervention candidate No further bradycardia arrhythmias, blood pressure variable no hypotension We continue carvedilol 12.5 mg twice per day continue reduced dose lisinopril 20 mg/day No plans or indications for further cardiac testing and stable for discharge from cardiac standpoint Patient scheduled with Dr. Huff 06/11/2021 Admission and Anticipated Discharge Date Admission Date: May 19, 2021 Subjective Patient was seen and examined, chart, medications, telemetry reviewed. No tachycardia or bradycardia arrhythmias on telemetry. No hypotension patient expressing no cardiac complaints. Blood pressure is variable but generally controlled. Review of Systems Review of Systems: Unobtainable due to cognitive status Physical Exam Constitutional: + language barrier (Secondary to expressive aphasia); no acute distress Eyes: PERRL, conjunctivae normal, anicteric sclerae ENMT: external ear and nose normal, oropharynx normal Neck: trachea midline, no thyromegaly Respiratory: normal respiratory effort, lungs clear to auscultation Cardiovascular: Rate/Rhythm: regular rate and regular rhythm Heart Sounds: normal S1 and + murmur (Grade 3/6 systolic ejection murmur); + abnormal S2 (Diminished) and no gallop Palpation: normal PMI Vessels: normal carotid upstroke and radial pulses present; no JVD Extremities: no edema Gastrointestinal (Abdomen): normal bowel sounds, soft, nontender, no hepatosplenomegaly Musculoskeletal: no cyanosis or clubbing, extremities motor strength 5/5 Skin: no rashes, warm and dry Neurologic: PERRL, EOMI, accommodation nl, no face palsy, no dysarthria Spe ech / Cognition: + expressive aphasia Psychiatric: A+Ox3, euthymic affect Orientation: alert Results & Data ([facility]) Vital Signs (Past 12 Hours) Vital Signs Temp Pulse Pulse Resp BP Pulse Ox 05/20/21 07:16 66 05/20/21 03:00 36.4 C L 64 18 146/71 H 95 05/20/21 00:00 89 05/19/21 23:00 36.6 C 90 18 187/95 H 96 Laboratory Results Laboratory Results - last 24 hr 05/19/21 05/19/21 05/19/21 12:05 16:49 20:32 PT INR POC Glucose 239 H 161 H 147 H 05/20/21 05/20/21 07:40 07:43 PT 12.2 H INR 1.2 H POC Glucose 175 H (1) Altered mental status Altered mental status type: unspecified Qualified Code(s): R41.82 - Altered mental status, unspecified
--- NOTE | 2021-05-20 14:09 | Hospitalist Progress Note ---
Date of Service May 20, 2021 Assessment & Plan (1) Near syncope: Plan: No significant syncope and/or strokelike symptoms at presentation or later on following admission One episode of hypotension noted by the paramedics Stroke work-up has been negative including MRI of the brain which did not show any new stroke or any other significant findings Lipid profile has been unremarkable The patient did not have any new and/or persisting symptoms Discussed with neurologist and the consult was canceled Has had physical therapy and recommended 24-hour care/SNF Discussed with the and she will take her home tomorrow with home health and home therapy Remains stable and will be discharged home tomorrow (2) Bradycardia: Plan: No more Bradyarrhythmias (3) Acute hypotension: Plan: This is a 61yo M with a PMH of 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 Back to baseline after 15-20 minutes of confusion with transient hypotensive and bradycardic episodes Vital signs stable since arrival, no repeat bradycardia or hypotension. Mild leukocytosis of 11, TSH wnl, covid PCR pending CT head and CXR without acute abnormality, ECG without significant change from previous Monitor on telemetry for bradyarrhythmia, repeat MRI brain wo con due to stroke history, follow UA and covid PCR results Holding today's coumadin dose since supratherapeutic. Repeat INR in AM Appreciate cardiology input and recommendation His blood pressure medications have been reduced to carvedilol 6.25 mg twice daily and lisinopril to 20 mg daily Blood pressure has been maintaining at normal range Blood pressure medications have been adjusted and seems to be stable Carvedilol doses have been increased to 12.5 mg twice daily and lisinopril remains same as 20 mg daily down from 30 mg as an outpatient His blood pressure remains stable (4) Supratherapeutic INR: Plan: Home regimen Mon 2.5mg, 7mg all other days, follows with anticoagulation clinic INR 4.3 - holding this evening's coumadin dose Repeat INR in AM-4.6 today and will hold Coumadin dose INR is 2.1 today and will restart Coumadin INR is 1.2 today-we will give 7 mg today We will check INR tomorrow (5) Paroxysmal atrial fibrillation: Plan: Hold coumadin this evening. Continue carvedilol Coumadin has been restarted since yesterday (6) Diarrhea: Plan: Ongoing loose stools at home. C diff and stool cx pending Stool test has been negative (7) CAD (coronary artery disease): Plan: Denies any cardiac symptoms (8) Peripheral arterial disease: Plan: History of CABG x3, carotid artery stenosis, SMA stenosis, PAD Continue with aspirin, statin, Plavix, Coreg, lisinopril - holding Coumadin while INR supratherapeutic (9) HTN (hypertension): Plan: Normotensive. Continue home medications (10) Type 2 diabetes mellitus: Plan: A1c 7.2 04/26 Hold home agents Basal/bolus insulin while in-patient BSG AC HS (11) Aortic valve stenosis: Plan: Degree of aortic stenosis is worse compared to 11/2019, no intervention per cardiology on previous admission due to stroke risk DVT Ppx: Holding coumadin while INR supratherapeutic Code status: FULL PCP: Lisa Dispo: Observation med tele Discussed with the in detail Admission and Anticipated Discharge Date Admission Date: May 19, 2021 Subjective 05/18/2021 The patient was seen and examined in medical telemetry unit He remains stable and denies any symptoms He has not had any more new symptoms and her relevant investigations remain unremarkable 05/19/2021 The patient was seen and examined in medical telemetry unit He remains stable and denies any symptoms His blood pressure is maintained 05/20/2021 The patient was seen and examined in medical telemetry unit He remains stable and denies any symptoms Did not have any more bradyarrhythmia and no hypotension Review of Systems Review of Systems: All systems reviewed and are unremarkable except as noted below Neurologic: Has prior stroke with right hemiparesis and dysarthria no problem with swallowing Physical Exam Physical Exam: Lying in bed comfortably Constitutional: well developed and well nourished; not ill appearing Eyes: PERRL, conjunctivae normal, anicteric sclerae ENMT: external ear and nose normal, oropharynx normal Neck: trachea midline, no thyromegaly Respiratory: no respiratory distress Auscultation: lungs clear to a uscultation bilaterally Cardiovascular: Rate/Rhythm: regular rate and regular rhythm; not tachycardic Heart Sounds: normal S1 and normal S2; no murmur Extremities: + edema (Trace edema on the right side) Gastrointestinal (Abdomen): Inspection/Auscultation: abdomen not distended Percussion/Palpation: abdomen soft; abdomen nontender Musculoskeletal: No acute arthritis in any joint Neurologic: Alert, awake and oriented x3. Minimal dysarthria with right hemiparesis Lymphatic: no cervical or axillary lymphadenopathy Results & Data Results & Data ([facility]) Vital Signs (Past 12 Hours) Vital Signs Temp Pulse Pulse Resp BP Pulse Ox 05/20/21 11:24 37 C 77 18 134/73 94 05/20/21 07:16 66 05/20/21 03:00 36.4 C L 64 18 146/71 H 95 Medications Administered Current Inpatient Medications Acetaminophen (Acetaminophen 325 Mg Tab) 650 mg PO Q4H PRN PRN Reason: Pain or Fever Stop: 06/16/21 21:28 Amlodipine Besylate (Amlodipine Besylate 5 Mg Tab) [facility] [place] Stop: 06/17/21 08:59 Last Admin: 05/20/21 08:16 Dose: 5 mg Documented by: Aspirin (Aspirin 81 Mg Ectab) [facility] [place] Stop: 06/17/21 08:59 Last Admin: 05/20/21 08:16 Dose: 81 mg Documented by: Atorvastatin Calcium (Atorvastatin 40 Mg Tab) 80 mg PO QPM [facility] Stop: 06/16/21 21:28 Last Admin: 05/19/21 21:19 Dose: 80 mg Documented by: Baclofen (Baclofen 10 Mg Tab) [facility] [place] Stop: 06/17/21 08:59 Last Admin: 05/20/21 08:20 Dose: 5 mg Documented by: Carvedilol (Carvedilol 12.5 Mg Tab) 12.5 mg PO BID [facility] Stop: 06/18/21 20:59 Last Admin: 05/20/21 08:16 Dose: 12.5 mg Documented by: Clopidogrel Bisulfate (Clopidogrel Bisulfate 75 Mg Tab) 75 mg PO QAM [facility] Stop: 06/17/21 08:59 Last Admin: 05/20/21 08:16 Dose: 75 mg Documented by: Dextrose (Dextrose 50% 50 Ml Syringe) 25 - 50 ml IV UD PRN; Protocol PRN Reason: Hypoglycemia Protocol Stop: 06/16/21 21:28 Glucagon (Glucagon For Inj 1 Mg Vial) 1 mg SQ UD PRN; Protocol PRN Reason: Hypoglycemia Protocol Stop: 06/16/21 21:28 Glucose (Glucose 10 Tabs/Tube) 4 - 8 tabs PO UD PRN; Protocol PRN Reason: Hypoglycemia Protocol Stop: 06/16/21 21:28 Glucose (Glucose 40% Gel 15 Gm Tube) 15 - 30 gm PO UD PRN; Protocol PRN Reason: Hypoglycemia Protocol Stop: 06/16/21 21:28 Insulin Aspart (Insulin Aspart Per Unit) 0 units SC ACHS [facility] Stop: 06/16/21 21:28 Last Admin: 05/20/21 12:09 Dose: 11 units Documented by: Insulin Glargine (Insulin Glargine Solostar 100 Units/Ml 3 Ml Pen) 0 - 14 units SC BID [facility]; Protocol Stop: 06/16/21 21:28 Last Admin: 05/20/21 08:22 Dose: 10 units Documented by: Lisinopril (Lisinopril 20 Mg Tab) 20 mg PO DAILY [facility] Stop: 06/18/21 08:59 Last Admin: 05/20/21 08:16 Dose: 20 mg Documented by: Miscellaneous (Carbohydrates For Hypoglycemia ) 15 - 30 gm PO UD PRN PRN Reason: Hypoglycemia Protocol Stop: 06/16/21 21:28 Ondansetron HCl (Ondansetron Inj 2 Mg/Ml 2 Ml Vial) 4 mg IV Q6H PRN PRN Reason: Nausea Stop: 06/16/21 21:28 Polyethylene Glycol (Polyethylene (Miralax) 17 Gm Pack) 17 gm PO DAILY PRN PRN Reason: Constipation Stop: 06/16/21 21:28 Tamsulosin HCl (Tamsulosin Hcl 0.4 Mg Cap) 0.4 mg PO HS [facility] Stop: 06/16/21 21:28 Last Admin: 05/19/21 21:19 Dose: 0.4 mg Documented by: Warfarin Sodium (Warfarin Sod 2.5 Mg Tab) 2.5 mg PO MO@1600 [facility] Stop: 06/24/21 15:59 Warfarin Sodium (Warfarin Sod 5 Mg Tab) 5 mg PO SUTUWETHFRSA@1600 [facility] Stop: 06/18/21 15:59 Last Admin: 05/19/21 16:11 Dose: 5 mg Documented by: Warfarin Sodium (Warfarin Sod 2 Mg Tab) 2 mg PO MARCO@1600 [facility] Stop: 06/18/21 15:59 Last Admin: 05/19/21 16:11 Dose: 2 mg Documented by: (1) Diarrhea Diarrhea type: unspecified type Qualified Code(s): R19.7 - Diarrhea, unspecified
[2021-05-20] MEDS: WARFARIN SOD 2 MG TAB PO SCH (17:15)
[2021-05-20] MEDS: WARFARIN SOD 5 MG TAB PO SCH (17:15)
[2021-05-20] MEDS: TAMSULOSIN HCL 0.4 MG CAP PO SCH (21:38)
[2021-05-20] MEDS: ATORVASTATIN 40 MG TAB PO SCH (21:38)
[2021-05-21 00:17] LABS: BUN Creatinine Ratio 29.1 (10-20); Calcium 8.6 mg/dl (8.5-10.1); Creatinine Clr Calc Pharmacy 104.6 ml/min; Est GFR (African American) 111.9 ml/min; Est GFR (Non-African American) 96.6 ml/min; Potassium 3.8 mmol/L (3.5-5.1)
[2021-05-21] MEDS ORDERED: SODIUM CHLORIDE 0.45 % 1,000 ML IV ONE (01:17)
[2021-05-21 08:35] LABS: INR 1.2 (0.9-1.1); Prothrombin Time 11.9 Seconds (9.0-12.0)
--- NOTE | 2021-05-21 09:07 | Cardiology Progress Note ---
Date of Service May 21, 2021 Assessment & Plan (1) Altered mental status: (2) Status post cerebrovascular accident: (3) CAD (coronary artery disease): (4) Aortic valve stenosis: (5) Peripheral arterial disease: (6) Acute hypotension: Plan: Patient is a 61-year-old male with very complex history as outlined but notable for diffuse vasculopathy including initial coronary bypass grafting at age 46, atherosclerotic peripheral vascular disease and cerebrovascular disease. He had evidence of past recurrent stroke with residual right hemiplegia and expressive aphasia most recent event January 2021. In addition to longstanding diabetes hypertension patient is noted to have borderline severe calcific aortic stenosis. Patient presented after acute mental status change confusion and diaphoresis episode at home with transient hypotension and bradycardia observed post emesis. No acute findings on EKG and troponin on initial evaluation. Echocardiogram reviewed from January which did demonstrate borderline severe aortic stenosis but not critical aortic stenosis nor of severity to likely cause syncope at rest No arrhythmias observed since admission no prior history of atrial fibrillation with patient on dual antiplatelet therapy and warfarin due to recurrent cerebrovascular events Recommendations: Aortic valve disease as noted above concern but not likely to cause rest symptoms patient extremely high/prohibitively high risk valvular intervention candidate No further bradycardia arrhythmias, blood pressure variable no hypotension We continue carvedilol 12.5 mg twice per day continue reduced dose lisinopril 20 mg/day No plans or indications for further cardiac testing and stable for discharge from cardiac standpoint Patient scheduled with Dr. Huff 06/11/2021 Patient hemodynamically stable today and anticipating discharge later Admission and Anticipated Discharge Date Admission Date: May 19, 2021 Subjective Patient seen and examined, chart, medications, telemetry reviewed. No cardiac or medical complaints. Telemetry without arrhythmias patient remains in sinus rhythm without bradycardia. No hypotension Review of Systems Review of Systems: All systems reviewed & are unremarkable except as noted in Subjective Physical Exam Constitutional: + language barrier (Secondary to expressive aphasia); no acute distress Eyes: PERRL, conjunctivae normal, anicteric sclerae ENMT: external ear and nose normal, oropharynx normal Neck: trachea midline, no thyromegaly Respiratory: normal respiratory effort, lungs clear to auscultation Cardiovascular: Rate/Rhythm: regular rate and regular rhythm Heart Sounds: normal S1 and + murmur (Grade 3/6 systolic ejection murmur); + abnormal S2 (Diminished) and no gallop Palpation: normal PMI Vessels: normal carotid upstroke and radial pulses present; no JVD Extremities: no edema Gastrointestinal (Abdomen): normal bowel sounds, soft, nontender, no hepatosp lenomegaly Musculoskeletal: no cyanosis or clubbing, extremities motor strength 5/5 Skin: no rashes, warm and dry Neurologic: PERRL, EOMI, accommodation nl, no face palsy, no dysarthria Speech / Cognition: + expressive aphasia Psychiatric: A+Ox3, euthymic affect Orientation: alert Results & Data ([facility]) Vital Signs (Past 12 Hours) Vital Signs Temp Pulse Pulse Resp BP Pulse Ox 05/21/21 07:43 36.7 C 78 20 145/77 H 93 05/21/21 07:23 80 05/21/21 03:00 36.5 C 64 18 115/74 97 05/20/21 22:34 36.9 C 73 18 119/73 95 05/20/21 22:30 68 Laboratory Results Laboratory Results - last 24 hr 05/20/21 05/20/21 05/20/21 11:32 15:56 20:16 PT INR Sodium Potassium Chloride Carbon Dioxide Anion Gap BUN Creatinine Est Cr Clr Drug Dosing Est GFR ( Amer) Est GFR (Non-Af Amer) BUN/Creatinine Ratio Glucose POC Glucose 225 H 228 H 301 H* Calcium Ammonia 05/20/21 05/20/21 05/20/21 20:17 20:23 23:17 PT INR Sodium Potassium Chloride Carbon Dioxide Anion Gap BUN Creatinine Est Cr Clr Drug Dosing Est GFR ( Amer) Est GFR (Non-Af Amer) BUN/Creatinine Ratio Glucose POC Glucose 222 H 230 H 149 H Calcium Ammonia 05/20/21 05/20/21 05/21/21 23:44 23:44 07:38 PT INR Sodium 141 Potassium 3.8 Chloride 107 Carbon Dioxide 29 Anion Gap 5.0 BUN 22 H Creatinine 0.77 Est Cr Clr Drug Dosing 104.6 Est GFR ( Amer) 111.9 Est GFR (Non-Af Amer) 96.6 BUN/Creatinine Ratio 29.1 H Glucose 149 H POC Glucose 152 H Calcium 8.6 Ammonia 36.7 H 05/21/21 07:50 PT 11.9 INR 1.2 H Sodium Potassium Chloride Carbon Dioxide Anion Gap BUN Creatinine Est Cr Clr Drug Dosing Est GFR ( Amer) Est GFR (Non-Af Amer) BUN/Creatinine Ratio Glucose POC Glucose Calcium Ammonia (1) Altered mental status Altered mental status type: unspecified Qualified Code(s): R41.82 - Altered mental status, unspecified
[2021-05-21] MEDS: INSULIN ASPART PER UNIT SC SCH ×3 (09:16→16:55)
[2021-05-21] MEDS: INSULIN GLARGINE SOLOSTAR 100 UNITS/ML 3 ML PEN SC SCH (09:16)
[2021-05-21] MEDS: lisinopril 20 MG TAB PO SCH (09:17)
[2021-05-21] MEDS: amLODIPine BESYLATE 5 MG TAB PO SCH (09:17)
[2021-05-21] MEDS: carvediloL 12.5 MG TAB PO SCH (09:17)
[2021-05-21] MEDS: BACLOFEN 10 MG TAB PO SCH (09:17)
[2021-05-21] MEDS: CLOPIDOGREL BISULFATE 75 MG TAB PO SCH (09:17)
[2021-05-21] MEDS: ASPIRIN 81 MG ECTAB PO SCH (09:17)
--- NOTE | 2021-05-21 09:49 | Hospitalist Progress Note ---
Date of Service May 21, 2021 Assessment & Plan (1) Near syncope: Plan: No significant syncope and/or strokelike symptoms at presentation or later on following admission One episode of hypotension noted by the paramedics Stroke work-up has been negative including MRI of the brain which did not show any new stroke or any other significant findings Lipid profile has been unremarkable The patient did not have any new and/or persisting symptoms Discussed with neurologist and the consult was canceled Has had physical therapy and recommended 24-hour care/SNF Discussed with the and she will take her home tomorrow with home health and home therapy Remains stable and will be discharged home this afternoon (2) Bradycardia: Plan: No more Bradyarrhythmias (3) Acute hypotension: Plan: This is a 61yo M with a PMH of 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 Back to baseline after 15-20 minutes of confusion with transient hypotensive and bradycardic episodes Vital signs stable since arrival, no repeat bradycardia or hypotension. Mild leukocytosis of 11, TSH wnl, covid PCR pending CT head and CXR without acute abnormality, ECG without significant change from previous Monitor on telemetry for bradyarrhythmia, repeat MRI brain wo con due to stroke history, follow UA and covid PCR results Holding today's coumadin dose since supratherapeutic. Repeat INR in AM Appreciate cardiology input and recommendation His blood pressure medications have been reduced to carvedilol 6.25 mg twice daily and lisinopril to 20 mg daily Blood pressure has been maintaining at normal range Blood pressure medications have been adjusted and seems to be stable Carvedilol doses have been increased to 12.5 mg twice daily and lisinopril remains same as 20 mg daily down from 30 mg as an outpatient Blood pressure remains stable at around 145/77 as of today Will be discharged home this afternoon (4) Supratherapeutic INR: Plan: Home regimen Mon 2.5mg, 7mg all other days, follows with anticoagulation clinic INR 4.3 - holding this evening's coumadin dose Repeat INR in AM-4.6 today and will hold Coumadin dose INR is 2.1 today and will restart Coumadin INR is 1.2 today-we will give 7 mg today INR remains at 1.2 and received 7 mg of Coumadin yesterday We will check INR tomorrow as an outpatient and informed coagulation clinic for further management from the (5) Paroxysmal atrial fibrillation: Plan: Hold coumadin this evening. Continue carvedilol Coumadin has been restarted since yesterday He remains in sinus rhythm since admission (6) Diarrhea: Plan: Ongoing loose stools at home. C diff and stool cx pending Stool test has been negative (7) CAD (coronary artery disease): Plan: Denies any cardiac symptoms (8) Peripheral arterial disease: Plan: History of CABG x3, carotid artery stenosis, SMA stenosis, PAD Continue with aspirin, statin, Plavix, Coreg, lisinopril - holding Coumadin while INR supratherapeutic (9) HTN (hypertension): Plan: Normotensive. Continue home medications (10) Type 2 diabetes mellitus: Plan: A1c 7.2 04/26 Hold home agents Basal/bolus insulin while in-patient BSG AC HS (11) Aortic valve stenosis: Plan: Degree of aortic stenosis is worse compared to 11/2019, no intervention per cardiology on previous admission due to stroke risk DVT Ppx: Holding coumadin while INR supratherapeutic Code status: FULL PCP: Lisa Dispo: Observation med tele Discussed with the in detail Discussed with the last evening and he will be discharged home this afternoon Admission and Anticipated Discharge Date Admission Date: May 19, 2021 Subjective 05/18/2021 The patient was seen and examined in medical telemetry unit He remains stable and denies any symptoms He has not had any more new symptoms and her relevant investigations remain unremarkable 05/19/2021 The patient was seen and examined in medical telemetry unit He remains stable and denies any symptoms His blood pressure is maintained 05/20/2021 The patient was seen and examined in medical telemetry unit He remains stable and denies any symptoms Did not have any more bradyarrhythmia and no hypotension 05/21/2021 The patient was seen and examined in medical telemetry unit He remains stable and denies any new symptoms He will be discharged home this afternoon with home health Review of Systems Review of Systems: All systems reviewed and are unremarkable except as noted below Neurologic: Has prior stroke with right hemiparesis and dysarthria no problem with swallowing Physical Exam Physical Exam: Lying in bed comfortably Constitutional: well developed and well nourished; not ill appearing Eyes: PERRL, conjunctivae normal, anicteric sclerae ENMT: external ear and nose normal, oropharynx normal Neck: trachea midline, no thyromegaly Respiratory: no respiratory distress Auscultation: lungs clear to auscultation bilaterally Cardiovascular: Rate/Rhythm: regular rate and regular rhythm; not tachycardic Heart Sounds: normal S1 and normal S2; no murmur Extremities: + edema (Trace edema on the right side) Gastrointestinal (Abdomen): Inspection/Auscultation: abdomen not distended Percussion/Palpation: abdomen soft; abdomen nontender Musculoskeletal: No acute arthritis in any joint but has right hemiparesis Neurologic: Alert, awake and oriented x3. Minimal dysarthria from prior stroke and right hemiparesis Psychiatric: A+Ox3, euthymic affect Lymphatic: no cervical or axillary lymphadenopathy Results & Data Results & Data ([facility]) Vital Signs (Past 12 Hours) Vital Signs Temp Pulse Pulse Resp BP Pulse Ox 05/21/21 07:43 36.7 C 78 20 145/77 H 93 05/21/21 07:23 80 05/21/21 03:00 36.5 C 64 18 115/74 97 05/20/21 22:34 36.9 C 73 18 119/73 95 05/20/21 22:30 68 Laboratory Results [facility] 05/20/21 23:44 Sodium 141 Potassium 3.8 Chloride 107 Carbon Dioxide 29 BUN 22 H Creatinine 0.77 Glucose 149 H Calcium 8.6 Medications Administered Current Inpatient Medications Acetaminophen (Acetaminophen 325 Mg Tab) 650 mg PO Q4H PRN PRN Reason: Pain or Fever Stop: 06/16/21 21:28 Amlodipine Besylate (Amlodipine Besylate 5 Mg Tab) [facility] [place]: 06/17/21 08:59 Last Admin: 05/21/21 09:17 Dose: 5 mg Documented by: Aspirin (Aspirin 81 Mg Ectab) 81 mg PO QAM [facility] Stop: 06/17/21 08:59 Last Admin: 05/21/21 09:17 Dose: 81 mg Documented by: Atorvastatin Calcium (Atorvastatin 40 Mg Tab) 80 mg PO QPM [facility] Stop: 06/16/21 21:28 Last Admin: 05/20/21 21:38 Dose: 80 mg Documented by: Baclofen (Baclofen 10 Mg Tab) 5 mg PO QAM [facility] Stop: 06/17/21 08:59 Last Admin: 05/21/21 09:17 Dose: 5 mg Documented by: Carvedilol (Carvedilol 12.5 Mg Tab) 12.5 mg PO BID [facility] Stop: 06/18/21 20:59 Last Admin: 05/21/21 09:17 Dose: 12.5 mg Documented by: Clopidogrel Bisulfate (Clopidogrel Bisulfate 75 Mg Tab) 75 mg PO QAM [facility] Stop: 06/17/21 08:59 Last Admin: 05/21/21 09:17 Dose: 75 mg Documented by: Dextrose (Dextrose 50% 50 Ml Syringe) 25 - 50 ml IV UD PRN; Protocol PRN Reason: Hypoglycemia Protocol Stop: 06/16/21 21:28 Glucagon (Glucagon For Inj 1 Mg Vial) 1 mg SQ UD PRN; Protocol PRN Reason: Hypoglycemia Protocol Stop: 06/16/21 21:28 Glucose (Glucose 10 Tabs/Tube) 4 - 8 tabs PO UD PRN; Protocol PRN Reason: Hypoglycemia Protocol Stop: 06/16/21 21:28 Glucose (Glucose 40% Gel 15 Gm Tube) 15 - 30 gm PO UD PRN; Protocol PRN Reason: Hypoglycemia Protocol Stop: 06/16/21 21:28 Sodium Chloride (1/2 Nss) 1,000 mls @ 60 mls/hr IV .[id number] ONE Stop: 05/21/21 17:56 Last Admin: 05/21/21 02:31 Dose: 60 mls/hr Documented by: Insulin Aspart (Insulin Aspart Per Unit) 0 units SC ACHS [facility] Stop: 06/20/21 07:29 Last Admin: 05/21/21 09:16 Dose: 7 units Documented by: Insulin Glargine (Insulin Glargine Solostar 100 Units/Ml 3 Ml Pen) 0 - 14 units SC BID [facility]; Protocol Stop: 06/16/21 21:28 Last Admin: 05/21/21 09:16 Dose: 10 units Documented by: Lisinopril (Lisinopril 20 Mg Tab) 20 mg PO DAILY [facility] Stop: 06/18/21 08:59 Last Admin: 05/21/21 09:17 Dose: 20 mg Documented by: Miscellaneous (Carbohydrates For Hypoglycemia ) 15 - 30 gm PO UD PRN PRN Reason: Hypoglycemia Protocol Stop: 06/16/21 21:28 Ondansetron HCl (Ondansetron Inj 2 Mg/Ml 2 Ml Vial) 4 mg IV Q6H PRN PRN Reason: Nausea Stop: 06/16/21 21:28 Polyethylene Glycol (Polyethylene (Miralax) 17 Gm Pack) 17 gm PO DAILY PRN PRN Reason: Constipation Stop: 06/16/21 21:28 Tamsulosin HCl (Tamsulosin Hcl 0.4 Mg Cap) 0.4 mg PO [facility] Stop: 06/16/21 21:28 Last Admin: 05/20/21 21:38 Dose: 0.4 mg Documented by: Warfarin Sodium (Warfarin Sod 2.5 Mg Tab) 2.5 mg PO MO@1600 [facility] Stop: 06/24/21 15:59 Warfarin Sodium (Warfarin Sod 5 Mg Tab) 5 mg PO SUTUWETHFRSA@1600 [facility] Stop: 06/18/21 15:59 Last Admin: 05/20/21 17:15 Dose: 5 mg Documented by: Warfarin Sodium (Warfarin Sod 2 Mg Tab) 2 mg PO SUTUWETHFRSA@1600 [facility] Stop: 06/18/21 15:59 Last Admin: 05/20/21 17:15 Dose: 2 mg Documented by: (1) Diarrhea Diarrhea type: unspecified type Qualified Code(s): R19.7 - Diarrhea, unspecified
[2021-05-21 11:12] LABS: Appearance Urine Clear (Clear); Bacteria Urine Automated Negative (Negative); Bilirubin Urine Negative (Negative); Blood Urine Trace (Negative); Color Urine Yellow; Epithelial Cell Urine Auto >30 /lpf (0-5); Glucose Urine UA 1+ (Negative); Ketones Urine Negative (Negative); Leukocyte Esterase Urine Negative (Negative); Nitrite Urine Negative (Negative); Protein Urine Negative (Negative); Specific Gravity Urine 1.031 (1.000-1.030); Urobilinogen Urine Negative (Negative)
[2021-05-21] MEDS: WARFARIN SOD 2 MG TAB PO SCH (15:13)
[2021-05-21] MEDS: WARFARIN SOD 5 MG TAB PO SCH (15:13)
[2021-05-25] MEDS ORDERED: WARFARIN SOD 2.5 MG TAB PO SCH (16:00)
--- NOTE | 2021-05-28 15:16 | Discharge Summary ---
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 He had just lunch and wheeled him into living room when he "spaced out" and did not respond to her questions as usual. Patient was noted to be diaphoretic and thought he may be hypoglycemic and checked BSG which was elevated at 197. Did not lose consciousness, no fall. Patient remembers this event and denies any preceding visual changes, lightheadedness, chest pain, palpitations. thought he returned to baseline within 15-20 minutes. During this time, EMS was called and he was noted to have one recorded incidence of hypotension with SBP in 70s and bradycardia x 1 with HR reportedly in 20s. Vitals since then have been in normal range. Received all morning medications. Has not yet taken 1600 dosing of coumadin and carvedilol. Currently feeling at his baseline and agrees. No fever, chills, lightheadedness, CP, SOB, N/V, abdominal pain or constipation. Chronic loose stools, is incontinent of urine. Has recurrent sacral wound is caring for. Was admitted January of this year after episode of confusion and was found to begum ve new embolic stroke on repeat MRI 3 days into admission despite triple therapy on aspirin, plavix and coumadin. Per cardiology, thought is that diffuse atheromatous disease in aorta and peripherally likely source of embolization.�Statin changed to rosuvastatin 40mg daily with consideration of starting PCK 9 inhibitor as an outpatient to stabilize plaque. Discharged to [facility] for rehab and then [facility] but was brought back home by in March with home health services. Has residual R hemiparesis and dysphasia from previous stroke. Admission Exam Per Admitting Provider Physical Exam:�� General Appearance:��WD/WN, vitals as above, NAD, sitting up in bed, pleasant, conversing easily Head:� normocephalic, atraumatic Eyes:��normal inspection, PERRL, conjunctivae normal, anicteric sclerae ENT:� external ear and nose normal, oropharynx normal Neck:�� normal visual inspection, trachea midline, no thyromegaly Respiratory:�normal respiratory effort, lungs clear to auscultation, no wheeze, rales, rhonchi.� No accessory muscle use Cardiovascular:� regular rate, rhythm, systolic murmur, normal peripheral pulses, no BLE edema. Vessels: no JVD Chest:� normal inspection of chest Abdomen/GI:� normal bowel sounds, soft, nontender, no hepatosplenomegaly Extremities/Musculoskeletal:� no cyanosis or clubbing, extremities motor strength 5/5, + R foot drop Neurologic:� PERRL, EOMI, accommodation nl, no face palsy, + mild dysarthria (chronic), R hemiparesis (chronic), CN's II-XI intact bilaterally Psychiatric:��A+Ox3, euthymic affect Skin:� no rashes, normal color, warm/dry Principal Diagnosis Near syncope, one episode of hypotension, history of a stroke with right hemiparesis, paroxysmal atrial fibrillation on anticoagulation Discharge Exam Lying in bed comfortably Constitutional well developed and well nourished; not ill appearing Eyes PERRL, conjunctivae normal, anicteric sclerae ENMT external ear and nose normal, oropharynx normal Neck trachea midline, no thyromegaly Respiratory no respiratory distress Auscultation: lungs clear to auscultation bilaterally Cardiovascular Rate/Rhythm: regular rate and regular rhythm; not tachycardic Heart Sounds: normal S1 and normal S2; no murmur Extremities: + edema (Trace edema on the right side) Gastrointestinal (Abdomen) Inspection/Auscultation: abdomen not distended Percussion/Palpation: abdomen soft; abdomen nontender Psychiatric A+Ox3, euthymic affect Lymphatic no cervical or axillary lymphadenopathy Discharge Data Allergies Allergy/AdvReac Type Severity Reaction Status Date / Time No Known Allergies Allergy Verified 05/17/21 17:42 Consultations 05/17/21 17:20 ED Decision to Admit Stat 05/18/21 08:00 Consult Cardiology Routine Ordered Studies 05/17/21 14:33 CT head/brain wo con Stat 05/17/21 19:06 MR brain wo con Routine Hospital Course (1) Near syncope: No significant syncope and/or strokelike symptoms at presentation or later on following admission One episode of hypotension noted by the paramedics Stroke work-up has been negative including MRI of the brain which did not show any new stroke or any other significant findings Lipid profile has been unremarkable The patient did not have any new and/or persisting symptoms Discussed with neurologist and the consult was canceled Has had physical therapy and recommended 24-hour care/SNF Discussed with the and she will take her home tomorrow with home health and home therapy Remains stable and will be discharged home this afternoon (2) Bradycardia: No more Bradyarrhythmias (3) Acute hypotension: This is a 61yo M with a PMH of 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 Back to baseline after 15-20 minutes of confusion with transient hypotensive and bradycardic episodes Vital signs stable since arrival, no repeat bradycardia or hypotension. Mild le ukocytosis of 11, TSH wnl, covid PCR pending CT head and CXR without acute abnormality, ECG without significant change from previous Monitor on telemetry for bradyarrhythmia, repeat MRI brain wo con due to stroke history, follow UA and covid PCR results Holding today's coumadin dose since supratherapeutic. Repeat INR in AM Appreciate cardiology input and recommendation His blood pressure medications have been reduced to carvedilol 6.25 mg twice daily and lisinopril to 20 mg daily Blood pressure has been maintaining at normal range Blood pressure medications have been adjusted and seems to be stable Carvedilol doses have been increased to 12.5 mg twice daily and lisinopril remains same as 20 mg daily down from 30 mg as an outpatient Blood pressure remains stable at around 145/77 as of today Will be discharged home this afternoon (4) Supratherapeutic INR: Home regimen Mon 2.5mg, 7mg all other days, follows with anticoagulation clinic INR 4.3 - holding this evening's coumadin dose Repeat INR in AM-4.6 today and will hold Coumadin dose INR is 2.1 today and will restart Coumadin INR is 1.2 today-we will give 7 mg today INR remains at 1.2 and received 7 mg of Coumadin yesterday We will check INR tomorrow as an outpatient and informed coagulation clinic for further management from the (5) Paroxysmal atrial fibrillation: Hold coumadin this evening. Continue carvedilol Coumadin has been restarted since yesterday He remains in sinus rhythm since admission (6) Diarrhea: Ongoing loose stools at home. C diff and stool cx pending Stool test has been negative (7) CAD (coronary artery disease): Denies any cardiac symptoms (8) Peripheral arterial disease: History of CABG x3, carotid artery stenosis, SMA stenosis, PAD Continue with aspirin, statin, Plavix, Coreg, lisinopril - holding Coumadin while INR supratherapeutic (9) HTN (hypertension): Normotensive. Continue home medications (10) Type 2 diabetes mellitus: A1c 7.2 04/26 Hold home agents Basal/bolus insulin while in-patient BSG AC HS (11) Aortic valve stenosis: Degree of aortic stenosis is worse compared to 11/2019, no intervention per cardiology on previous admission due to stroke risk DVT Ppx: Holding coumadin while INR supratherapeutic Code status: FULL PCP: Lisa Dispo: Observation med tele Discussed with the in detail Discussed with the last evening and he will be discharged home this afternoon Total Time Total Time Spent Total Time Spent (In Minutes): 35 minutes Discharge Plan Discharge Items Patient Disposition: Home - Home Health Services Reason For Visit: SYNCOPE Discharge Diagnosis: Near syncope, one episode of hypotension, history of a stroke with right hemiparesis, paroxysmal atrial fibrillation on anticoagulation Condition on Discharge: Fair Activity: As commented below Activity Comment: Will need help with ADL S Non-emergency contact: Primary Care Provider Call non-emergency contact if: you have any medication questions and your symptoms worsen Follow-up/Referrals: Shane Gonzalez MD [Physician] - (Date & Time 05/27/2021 11:20 AM Provider Shane Gonzalez MD Department General Internal Medicine [facility] ) Diet: Carb Consistent or DM2 and Heart Healthy Addtl Attending Provider Instructions: Please take precautions to avoid falls Your dose of lisinopril has been decreased No other changes in your medications Please have regular follow-up appointments with coagulation clinic and your healthcare providers You do have appointment with the supervisor of officials on 06/11/2021 Pending Studies at Discharge: No Stand-Alone Forms: My [employer], Smoking Cessation Medications and DC Order Prescriptions: New lisinopril 20 mg Tablet 20 mg PO DAILY Qty: 30 RF: 0 Continued nitroglycerin 0.4 mg tablet, sublingual 0.4 mg sublingual DIRECTED PRN (Reason: Chest Pain) RF: 0 insulin aspart U-100 [Novolog U-100 Insulin aspart] 100 unit/mL solution 10 unit subcut AC RF: 0 tamsulosin 0.4 mg capsule 0.4 mg PO HS RF: 0 metformin 1,000 mg tablet 500 mg PO BID RF: 0 carvedilol 12.5 mg tablet 12.5 mg PO BID Qty: 60 RF: 0 Lantus U-100 Insulin 100 unit/mL solution See Rx Instructions .ROUTE .COMPLEX Qty: 10 RF: 0 clopidogrel [Plavix] 75 mg tablet 75 mg PO QAM Qty: 30 RF: 0 amlodipine [Norvasc] 5 mg tablet 5 mg PO QAM Qty: 30 RF: 0 aspirin 81 mg Tablet,Delayed Release (Dr/Ec) 81 mg PO QAM Qty: 30 RF: 0 ondansetron 4 mg tablet,disintegrating 4 mg PO Q4H PRN (Reason: Nausea) Qty: 10 RF: 0 baclofen 5 mg tablet 5 mg PO QAM Qty: 30 RF: 0 atorvastatin 80 mg tablet 80 mg PO QPM RF: 0 warfarin 2.5 mg Tablet 2.5 mg PO MO@1600 RF: 0 warfarin 5 mg Tablet 7 mg PO SUTUWETHFRSA@1600 RF: 0 Discontinued lisinopril 30 mg tablet 30 mg PO DAILY Qty: 30 RF: 0 Discharge Orders: Discharge Order (Routine); Ordered 05/21/21 Ordered By: Jolie Carr Admission Data Admit Date/Time: 05/19/21 13:55 Attending Provider: Jolie Carr Admit Provider: Jolie Carr Primary Care Provider: Dereck Zaman Other Providers: Bentley Boykin Manabendra Other Interventions: Discharge Summary Assessment (RN) Last Done: 05/21/21 12:42
== END 2021-05-21 17:03 | disposition home health service (06) | DRG 315 ==
LOC: ED 14:21 → EDINP 14:21 → 2N 05-18 09:57
DX: R00.1 Bradycardia, unspecified; R47.1 Dysarthria and anarthria; R19.7 Diarrhea, unspecified; I48.0 Paroxysmal atrial fibrillation; Z79.01 Long term (current) use of anticoagulants; R79.1 Abnormal coagulation profile; Z82.49 Family history of ischemic heart disease and other diseases of the circulatory system; I10 Essential (primary) hypertension; R41.82 Altered mental status, unspecified; I35.0 Nonrheumatic aortic (valve) stenosis; E11.319 Type 2 diabetes mellitus with unspecified diabetic retinopathy without macular edema; Z99.3 Dependence on wheelchair; Z79.82 Long term (current) use of aspirin; Z87.891 Personal history of nicotine dependence; E11.51 Type 2 diabetes mellitus with diabetic peripheral angiopathy without gangrene; I69.321 Dysphasia following cerebral infarction; E66.9 Obesity, unspecified; Z79.02 Long term (current) use of antithrombotics/antiplatelets; Z79.4 Long term (current) use of insulin; Z68.26 Body mass index [BMI] 26.0-26.9, adult; I69.351 Hemiplegia and hemiparesis following cerebral infarction affecting right dominant side; I95.9 Hypotension, unspecified; Z95.5 Presence of coronary angioplasty implant and graft; Z95.1 Presence of aortocoronary bypass graft

== ENCOUNTER 2021-08-20 14:07 | Inpatient (IN) ==
[2021-08-20] MEDS ORDERED: SODIUM CHLORIDE 0.9% 500 ML IV SCH (14:15)
--- NOTE | 2021-08-20 14:33 | Emergency Department Note ---
Impression & Plan Acute alteration in mental status, Hypomagnesemia ED Provider Note NAME: TREVIN POPE AGE: 61 SEX: M : 1960 ARRIVES VIA: Ambulance INFORMANT: The patient significant other, EMS personnel ED PROVIDER(S): Giorgio Mendiola DO CHIEF COMPLAINT: Altered mental status HPI: The patient is a 61-year-old male who presented to the emergency department for an evaluation of altered mental status. The patient came via ambulance. His significant other presented with him. Apparently the patient started having altered mental status over the course of the morning. She states the symptoms were waxing and waning but then became much worse at around noon today. She called 911 because the patient was not answering questions and appeared to be very slow to answer questions. He has been noted to have lower blood pressure than usual over the course of the last few months by cardiology. The patient has been compliant with his usual outpatient medications which include warfarin. There is been no unilateral weakness. There have been no fever or seizure. The patient has had no complaints of abdominal pain or chest pain. ROS: See above HPI for pertinent positives & negatives. A total of 10 systems reviewed and were otherwise negative. PAST MEDICAL HISTORY: See Below PAST SURGICAL HISTORY: See Below FAMILY HISTORY: See Below SOCIAL HISTORY: See Below HOME MEDICATIONS: See Below ALLERGIES: See Below VITALS: See Below PHYSICAL EXAMINATION: GENERAL: The patient is awake to verbal commands but appears to go to sleep quickly. He does not appear to be uncomfortable. EYES: The conjunctivae are clear. The pupils are round and reactive. EARS, NOSE, MOUTH AND THROAT: The nose is without any evidence of any deformity. Mucous membranes are dry. NECK: The neck is nontender and supple. RESPIRATORY: Normal respiratory effort is noted there is no evidence of wheezing rhonchi or rales CARDIOVASCULAR: Regular rate and rhythm was noted to auscultation. Systolic murmur was suggested. GASTROINTESTINAL: The abdomen is soft. Abdomen is nontender. MUSCULOSKELETAL/EXTREMITIES: There is no evidence of gross deformity full range of motion is noted in the hips and shoulders. SKIN: Skin was cool and dry. Trace pedal edema was noted bilaterally. NEUROLOGIC: Patient is awake to verbal commands. He is oriented to person but not place or time. He does recognize a significant other. Strength is significantly diminished but appears to be symmetric. MEDICAL DECISION MAKING: Patient is a 61-year-old male who presented to the emergency department for an evaluation of altered mental status. The patient presented with his who knows his condition very well. Patient was slow to answer questions and appeared to be lethargic. He was treated with IV fluids in the emergency department. Initially he was hypotensive. This improved with IV hydration. I discussed the patient's laboratory and radiographic studies with him and his significant other. Given his symptoms and his magnesium level I discussed this case with the on-call [facility] hospitalist. They have agreed to evaluate the patient in the emergency department for further management and disposition. Triage Nursing notes reviewed. Prior medical records reviewed Vital Signs: reviewed and remarkable for no significant abnormalities Differential diagnosis: Infection, hypoglycemia, electrolyte abnormalities, overdose, toxicologic, cardiac sources, intracerebral event, neurologic, trauma, as well as other pathologies. ER treatment provided: See below Diagnostics interpreted by me: ECG: EKG was obtained in the emergency department. My interpretation is normal sinus rhythm at 73 bpm. There is no ectopy. Poor R wave progression with anterior Q waves was noted. There are also inferior Q waves which were significant as well as ST depressions and T wave inversions in the high lateral leads. This was compared to a tracing from May 182020. No changes were noted. Cardiac Monitoring: An order was placed for continuous cardiac monitoring. The monitor shows a rate of 80 bpm with sinus rhythm. Laboratory studies: As stated above and show below. Imaging studies: See below Consultation(s): I discussed this case with the on-call [facility] hospitalist. They have agreed to evaluate the patient in the emergency department. 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" Aortic valve stenosis BPH with obstruction/lower urinary tract symptoms CAD (coronary artery disease) Carotid stenosis Diabetic peripheral neuropathy associated with type 2 diabetes mellitus Dyslipidemia Hemiplegia affecting right dominant side History of CVA (cerebrovascular accident) History of pancreatitis HTN (hypertension) Hypomagnesemia Monoplegia affecting right dominant side Obesity Osteomyelitis of great toe of right foot Proliferative diabetic retinopathy Retinal edema Right foot drop Status post cerebrovascular accident Status post myocardial infarction Superior mesenteric artery stenosis Type 2 diabetes mellitus Surgical History Hx of vitrectomy S/P angioplasty with stent S/P CABG x 3 S/P PTCA (percutaneous transluminal coronary angioplasty) Family History Father Heart disease Social History Smoking Status: Former smoker Tobacco Type: Cigarettes Second Hand Exposure: No; Hx Alcohol Use: No Hx Substance Use: No Preferred Language: Togolese Communication Ability: Effective Visual Impairment: No Limitations Hearing Ability: Normal Associate Sales Representative Required: No Beliefs That Will Affect Care: None marital status: Current Living Situation: Spouse Current Living Situation Comment: Lives with in a split level home but he is in basement current occupational status: disabled Feels Safe at Home: Yes Assistive Devices: Walker Allergies Allergies Allergy/AdvReac Type Severity Reaction Status Date / Time No Known Allergies Allergy Verified 08/20/21 16:14 Home Meds Home Medications Medication Instructions Recorded Confirmed nitroglycerin 0.4 mg sublingual 0.4 mg SUBLINGUAL DIRECTED PRN 08/09/19 08/20/21 tablet insulin aspart U-100 100 unit/mL 10 unit SUBCUT AC 01/11/21 08/20/21 subcutaneous solution (Novolog U-100 Insulin aspart) metformin 1,000 mg tablet 500 mg PO BID 01/11/21 08/20/21 tamsulosin 0.4 mg capsule 0.4 mg PO HS 01/11/21 08/20/21 atorvastatin 80 mg tablet 80 mg PO QPM 05/17/21 08/20/21 warfarin 2.5 mg tablet 2.5 mg PO MO@1600 05/17/21 08/20/21 warfarin 5 mg tablet 7 mg PO SUTUWETHFRSA@1600 05/17/21 08/20/21 lisinopril 10 mg tablet 10 mg PO DAILY 08/20/21 08/20/21 Previous Rx's Medication Instructions Recorded amlodipine 5 mg tablet (Norvasc) 5 mg PO QAM #30 tab 09/22/20 aspirin 81 mg tablet,delayed 81 mg PO QAM #30 tab 09/22/20 release baclofen 5 mg tablet 5 mg PO QAM #30 tab 09/22/20 carvedilol 12.5 mg tablet 12.5 mg PO BID #60 tab 09/22/20 clopidogrel 75 mg tablet (Plavix) 75 mg PO QAM #30 tab 09/22/20 insulin glargine 100 unit/mL See Rx Instructions .ROUTE 09/22/20 subcutaneous solution (Lantus .COMPLEX #10 ml U-100 Insulin) Results & Data (ED) Vital Signs Vital Signs - 24 hr 08/20/21 14:15 08/20/21 14:30 08/20/21 16:48 Temperature 36.4 C L Temperature Source Oral Pulse Rate 73 75 Pulse Rate [Right Finger] 79 Pulse Rate from SpO2 Sensor 75 Pulse Rhythm [Right Finger] Regular Respiratory Rate 14 21 14 Blood Pressure 90/53 L Blood Pressure [Left Arm] 143/69 H Blood Pressure Mean 65 Blood Pressure Mean [Left Arm] 93 Pulse Oximetry 99 98 99 Oxygen Delivery Method Room Air Room Air Room Air Sepsis New/Unexplained Change in Mental Status No Sepsis Action Taken by Nursing Physician Notified 08/20/21 18:00 Temperature Temperature Source Pulse Rate Pulse Rate [Right Finger] 80 Pulse Rate from SpO2 Sensor Pulse Rhythm [Right Finger] Respiratory Rate 14 Blood Pressure Blood Pressure [Left Arm] 140/66 Blood Pressure Mean Blood Pressure Mean [Left Arm] 90 Pulse Oximetry 98 Oxygen Delivery Method Sepsis New/Unexplained Change in Mental Status Sepsis Action Taken by Shelter Medications Current Medication List: was personally reviewed by me Laboratory Data Attestation: I reviewed the patient's lab results. Result diagrams: 08/20/21 14:34 08/20/21 14:34 Lab Results 08/20/21 08/20/21 08/20/21 Range/Units 14:16 14:34 14:34 WBC 10.79 (4.8-10.8) K/uL RBC 5.07 (4.7-6.1) M/uL Hgb 12.6 L (14.0-18.0) g/dL POC Hgb (14.0-18.0) g/dl Hct 39.0 L (42-52) % POC Hct (42-52) % MCV 76.9 L (80-100) fL MCH 24.9 L (25-34) pg MCHC 32.3 (32-36) g/dL RDW Std Deviation 42.1 (36.4-46.3) fL RDW Coeff of Caroline 15.1 H (11.5-14.5) % Plt Count 306 (130-400) K/uL MPV 10.6 H (7.4-10.4) fL Immature Gran % (Auto) 0.2 % Neut % (Auto) 78.5 % Lymph % (Auto) 14.4 % [place] % (Auto) 6.3 % Eos % (Auto) 0.4 % Baso % (Auto) 0.2 % Neut # (Auto) 8.48 H (1.4-6.5) K/uL Lymph # (Auto) 1.55 (1.2-3.4) K/uL [place] # (Auto) 0.68 H (0.11-0.59) K/uL Eos # (Auto) 0.04 (0-0.5) K/uL Baso # (Auto) 0.02 (0-0.2) K/uL Immature Gran # (Auto) 0.02 (0.00-0.02) K/uL PT 38.9 H (9.0-12.0) Seconds INR 3.9 H (0.9-1.1) APTT 41.9 H (21.0-31.0) Seconds PTT Ratio 1.5 POC Sodium (135-144) mmol/L Sodium (136-145) mmol/L POC Potassium (3.3-5.0) mmol/L Potassium (3.5-5.1) mmol/L POC Chloride (101-112) mmol/L Chloride (98-107) mmol/L Carbon Dioxide (21-32) mmol/L POC Total CO2 (24-31) mmol/L Anion Gap (3-11) POC Anion Gap (16-25) mmol/L POC BUN (7-18) mg/dl BUN (6-23) mg/dl Creatinine (0.6-1.4) mg/dl POC Creatinine (0.6-1.3) mg/dl Est Cr Clr Drug Dosing Est GFR ( Amer) ml/min Est GFR (Non-Af Amer) ml/min BUN/Creatinine Ratio (10-20) Glucose (70-99(Fasting)) mg/dl POC Glucose 174 H (70-99) mg/dl POC Glucose (other) (70-99) mg/dl Calcium (8.5-10.1) mg/dl POC Ioniz Calcium Carolee (1.12-1.32) mmol/l Magnesium (1.7-2.4) mg/dl Total Bilirubin (0.2-1.0) mg/dl AST (13-39) U/L ALT (7-52) U/L Alkaline Phosphatase (34-104) U/L Total Creatine Kinase (30-223) U/L Troponin I (0-0.04) ng/ml Total Protein (6.0-8.3) gm/dl Albumin (3.4-5.0) gm/dl Globulin (2.5-4.0) gm/dl Albumin/Globulin Ratio (0.9-2) TSH (0.300-4.500) uIu/ml Random Cortisol mcg/dl Urine Color Urine Appearance (Clear) Urine pH (4.5-7.5) Ur Specific [place] (1.000-1.030) Urine Protein (Negative) Urine Glucose (UA) (Negative) Urine Ketones (Negative) Urine Blood (Negative) Urine Nitrite (Negative) Urine Bilirubin (Negative) Urine Urobilinogen (Negative) Ur Leukocyte Esterase (Negative) Urine WBC (Auto) (0-5) /hpf Urine RBC (Auto) (0-4) /hpf U Hyaline Cast (Auto) (0-5) /lpf U Epithel Cells (Auto) (0-5) /lpf Urine Bacteria (Auto) (Negative) SARS-CoV-2, RNA, NAAT (NEGATIVE) 08/20/21 08/20/21 08/20/21 Range/Units 14:34 14:34 14:34 WBC (4.8-10.8) K/uL RBC (4.7-6.1) M/uL Hgb (14.0-18.0) g/dL POC Hgb (14.0-18.0) g/dl Hct (42-52) % POC Hct (42-52) % MCV (80-100) fL MCH (25-34) pg MCHC (32-36) g/dL RDW Std Deviation (36.4-46.3) fL RDW Coeff of Caroline (11.5-14.5) % Plt Count (130-400) K/uL MPV (7.4-10.4) fL Immature Gran % (Auto) % Neut % (Auto) % Lymph % (Auto) % [place] % (Auto) % Eos % (Auto) % Baso % (Auto) % Neut # (Auto) (1.4-6.5) K/uL Lymph # (Auto) (1.2-3.4) K/uL [place] # (Auto) (0.11-0.59) K/uL Eos # (Auto) (0-0.5) K/uL Baso # (Auto) (0-0.2) K/uL Immature Gran # (Auto) (0.00-0.02) K/uL PT (9.0-12.0) Seconds INR (0.9-1.1) APTT (21.0-31.0) Seconds PTT Ratio POC Sodium (135-144) mmol/L Sodium 139 (136-145) mmol/L POC Potassium (3.3-5.0) mmol/L Potassium 3.4 L (3.5-5.1) mmol/L POC Chloride (101-112) mmol/L Chloride 103 (98-107) mmol/L Carbon Dioxide 27 (21-32) mmol/L POC Total CO2 (24-31) mmol/L Anion Gap 9 (3-11) POC Anion Gap (16-25) mmol/L POC BUN (7-18) mg/dl BUN 16 (6-23) mg/dl Creatinine 1.02 (0.6-1.4) mg/dl POC Creatinine (0.6-1.3) mg/dl Est Cr Clr Drug Dosing Not Reportable Est GFR ( Amer) 90.2 ml/min Est GFR (Non-Af Amer) 77.9 ml/min BUN/Creatinine Ratio 15.7 (10-20) Glucose 165 H (70-99(Fasting)) mg/dl POC Glucose (70-99) mg/dl POC Glucose (other) (70-99) mg/dl Calcium 8.7 (8.5-10.1) mg/dl POC Ioniz Calcium Carolee (1.12-1.32) mmol/l Magnesium 1.2 L (1.7-2.4) mg/dl Total Bilirubin 0.5 (0.2-1.0) mg/dl AST 11 L (13-39) U/L ALT 16 (7-52) U/L Alkaline Phosphatase 84 (34-104) U/L Total Creatine Kinase 336 H (30-223) U/L Troponin I < 0.03 (0-0.04) ng/ml Total Protein 7.0 (6.0-8.3) gm/dl Albumin 3.8 (3.4-5.0) gm/dl Globulin 3.2 (2.5-4.0) gm/dl Albumin/Globulin Ratio 1.2 (0.9-2) TSH 3.193 (0.300-4.500) uIu/ml Random Cortisol 30.66 mcg/dl Urine Color Urine Appearance (Clear) Urine pH (4.5-7.5) Ur Specific [place] (1.000-1.030) Urine Protein (Negative) Urine Glucose (UA) (Negative) Urine Ketones (Negative) Urine Blood (Negative) Urine Nitrite (Negative) Urine Bilirubin (Negative) Urine Urobilinogen (Negative) Ur Leukocyte Esterase (Negative) Urine WBC (Auto) (0-5) /hpf Urine RBC (Auto) (0-4) /hpf U Hyaline Cast (Auto) (0-5) /lpf U Epithel Cells (Auto) (0-5) /lpf Urine Bacteria (Auto) (Negative) SARS-CoV-2, RNA, NAAT (NEGATIVE) 08/20/21 08/20/21 08/20/21 Range/Units 14:41 14:50 16:40 WBC (4.8-10.8) K/uL RBC (4.7-6.1) M/uL Hgb (14.0-18.0) g/dL POC Hgb 13.9 L (14.0-18.0) g/dl Hct (42-52) % POC Hct 41 L (42-52) % MCV (80-100) fL MCH (25-34) pg MCHC (32-36) g/dL RDW Std Deviation (36.4-46.3) fL RDW Coeff of Caroline (11.5-14.5) % Plt Count (130-400) K/uL MPV (7.4-10.4) fL Immature Gran % (Auto) % Neut % (Auto) % Lymph % (Auto) % [place] % (Auto) % Eos % (Auto) % Baso % (Auto) % Neut # (Auto) (1.4-6.5) K/uL Lymph # (Auto) (1.2-3.4) K/uL [place] # (Auto) (0.11-0.59) K/uL Eos # (Auto) (0-0.5) K/uL Baso # (Auto) (0-0.2) K/uL Immature Gran # (Auto) (0.00-0.02) K/uL PT (9.0-12.0) Seconds INR (0.9-1.1) APTT (21.0-31.0) Seconds PTT Ratio POC Sodium 141 (135-144) mmol/L Sodium (136-145) mmol/L POC Potassium 3.4 (3.3-5.0) mmol/L Potassium (3.5-5.1) mmol/L POC Chloride 101 (101-112) mmol/L Chloride (98-107) mmol/L Carbon Dioxide (21-32) mmol/L POC Total CO2 25 (24-31) mmol/L Anion Gap (3-11) POC Anion Gap 20.0 (16-25) mmol/L POC BUN 16 (7-18) mg/dl BUN (6-23) mg/dl Creatinine (0.6-1.4) mg/dl POC Creatinine 0.9 (0.6-1.3) mg/dl Est Cr Clr Drug Dosing Est GFR ( Amer) ml/min Est GFR (Non-Af Amer) ml/min BUN/Creatinine Ratio (10-20) Glucose (70-99(Fasting)) mg/dl POC Glucose (70-99) mg/dl POC Glucose (other) 163 H (70-99) mg/dl Calcium (8.5-10.1) mg/dl POC Ioniz Calcium [place]ole[place] 1.14 (1.12-1.32) mmol/l Magnesium (1.7-2.4) mg/dl Total Bilirubin (0.2-1.0) mg/dl AST (13-39) U/L ALT (7-52) U/L Alkaline Phosphatase (34-104) U/L Total Creatine Kinase (30-223) U/L Troponin I (0-0.04) ng/ml Total Protein (6.0-8.3) gm/dl Albumin (3.4-5.0) gm/dl Globulin (2.5-4.0) gm/dl Albumin/Globulin Ratio (0.9-2) TSH (0.300-4.500) uIu/ml Random Cortisol mcg/dl Urine Color Yellow Urine Appearance Clear (Clear) Urine pH 5.0 (4.5-7.5) Ur Specific [place] 1.025 (1.000-1.030) Urine Protein Trace H (Negative) Urine Glucose (UA) 1+ H (Negative) Urine Ketones Negative (Negative) Urine Blood Negative (Negative) Urine Nitrite Negative (Negative) Urine Bilirubin Negative (Negative) Urine Urobilinogen Negative (Negative) Ur Leukocyte Esterase Negative (Negative) Urine WBC (Auto) 1-5 (0-5) /hpf Urine RBC (Auto) 0-4 (0-4) /hpf U Hyaline Cast (Auto) 10-30 H (0-5) /lpf U Epithel Cells (Auto) 20-30 H (0-5) /lpf Urine Bacteria (Auto) Negative (Negative) SARS-CoV-2, RNA, NAAT NEGATIVE (NEGATIVE) 08/20/21 Range/Units 19:15 WBC (4.8-10.8) K/uL RBC (4.7-6.1) M/uL Hgb (14.0-18.0) g/dL POC Hgb (14.0-18.0) g/dl Hct (42-52) % POC Hct (42-52) % MCV (80-100) fL MCH (25-34) pg MCHC (32-36) g/dL RDW Std Deviation (36.4-46.3) fL RDW Coeff of Caroline (11.5-14.5) % Plt Count (130-400) K/uL MPV (7.4-10.4) fL Immature Gran % (Auto) % Neut % (Auto) % Lymph % (Auto) % [place] % (Auto) % Eos % (Auto) % Baso % (Auto) % Neut # (Auto) (1.4-6.5) K/uL Lymph # (Auto) (1.2-3.4) K/uL [place] # (Auto) (0.11-0.59) K/uL Eos # (Auto) (0-0.5) K/uL Baso # (Auto) (0-0.2) K/uL Immature Gran # (Auto) (0.00-0.02) K/uL PT 38.2 H (9.0-12.0) Seconds INR 3.9 H (0.9-1.1) APTT (21.0-31.0) Seconds PTT Ratio POC Sodium (135-144) mmol/L Sodium (136-145) mmol/L POC Potassium (3.3-5.0) mmol/L Potassium (3.5-5.1) mmol/L POC Chloride (101-112) mmol/L Chloride (98-107) mmol/L Carbon Dioxide (21-32) mmol/L POC Total CO2 (24-31) mmol/L Anion Gap (3-11) POC Anion Gap (16-25) mmol/L POC BUN (7-18) mg/dl BUN (6-23) mg/dl Creatinine (0.6-1.4) mg/dl POC Creatinine (0.6-1.3) mg/dl Est Cr Clr Drug Dosing Est GFR ( Amer) ml/min Est GFR (Non-Af Amer) ml/min BUN/Creatinine Ratio (10-20) Glucose (70-99(Fasting)) mg/dl POC Glucose (70-99) mg/dl POC Glucose (other) (70-99) mg/dl Calcium (8.5-10.1) mg/dl POC Ioniz Calcium [place] (1.12-1.32) mmol/l Magnesium (1.7-2.4) mg/dl Total Bilirubin (0.2-1.0) mg/dl AST (13-39) U/L ALT (7-52) U/L Alkaline Phosphatase (34-104) U/L Total Creatine Kinase (30-223) U/L Troponin I (0-0.04) ng/ml Total Protein (6.0-8.3) gm/dl Albumin (3.4-5.0) gm/dl Globulin (2.5-4.0) gm/dl Albumin/Globulin Ratio (0.9-2) TSH (0.300-4.500) uIu/ml Random Cortisol mcg/dl Urine Color Urine Appearance (Clear) Urine pH (4.5-7.5) Ur Specific [place] (1.000-1.030) Urine Protein (Negative) Urine Glucose (UA) (Negative) Urine Ketones (Negative) Urine Blood (Negative) Urine Nitrite (Negative) Urine Bilirubin (Negative) Urine Urobilinogen (Negative) Ur Leukocyte Esterase (Negative) Urine WBC (Auto) (0-5) /hpf Urine RBC (Auto) (0-4) /hpf U Hyaline Cast (Auto) (0-5) /lpf U Epithel Cells (Auto) (0-5) /lpf Urine Bacteria (Auto) (Negative) SARS-CoV-2, RNA, NAAT (NEGATIVE) Administered Medications Discontinued Medications Sodium Chloride (Nss) 500 mls @ 999 mls/hr IV .Q31M SUMA Stop: 08/20/21 14:45 Last Infusion: 08/20/21 16:45 Dose: 0 mls/hr Documented by: [id number] Admin: 08/20/21 14:46 Dose: 999 mls/hr Documented by: [id number] Sodium Chloride (Nss 1000ml) 500 mls @ 999 mls/hr IV .Q31M ONE Stop: 08/20/21 16:33 Last Infusion: 08/20/21 18:36 Dose: 0 mls/hr Documented by: [id number] Admin: 08/20/21 16:46 Dose: 999 mls/hr Documented by: [id number] Magnesium Sulfate/Dextrose (Magnesium Sulfate / D5w) 1 gm in 100 mls @ 100 mls/hr IV Q1H SUMA Stop: 08/20/21 18:03 Last Infusion: 08/20/21 18:44 Dose: 0 mls/hr Documented by: [id number] Admin: 08/20/21 17:38 Dose: 100 mls/hr Documented by: [id number] Infusion: 08/20/21 17:38 Dose: 100 mls/hr Documented by: [id number] Admin: 08/20/21 16:40 Dose: 100 mls/hr Documented by: [id number] Imaging Data Radiologist's Impression: Chest X-Ray 08/20/21 14:15 SINGLE VIEW CHEST CLINICAL HISTORY: Generalized weakness. FINDINGS: An AP, portable, upright chest radiograph is compared to study dated 05/17/2021 and correlated with chest CT dated 11/17/2018. The examination is degraded by portable technique and patient rotation. The patient is status post midline sternotomy. The heart is enlarged noting atherosclerotic calcification of the thoracic aorta. The pulmonary vasculature is noncongested. Chronic interstitial thickening is similar to previous. The lungs and pleural spaces are clear. No pneumothorax is seen. The skeletal structures are osteopenic. The bony thorax is grossly intact. IMPRESSION: Cardiomegaly with no acute cardiopulmonary abnormality. ACT 112: Negative or not required by law. Electronically signed by: Donny Fernando M.D. 08/20/2021 2:[address] 08/20/21 14:15 CT head/brain wo con CLINICAL HISTORY: AMS Technique: Contiguous axial CT images of the head were acquired from the base of the skull to the vertex without intravenous contrast administration. Images were viewed in brain, subdural and bone windows. Automated dose lowering techniques and/or adjustment according to patient size were utilized for this exam. Comparison: Comparison is made to CT head 05/17/2021 Findings: Areas of decreased attenuation are present in the periventricular and subcortical white matter bilaterally consistent with small vessel ischemic disease. Generalized cerebral atrophy with commensurate enlargement of the ventricles, sulci, and cisterns is also present. There is no acute intracranial hemorrhage or evidence of acute territorial infarction. No shift of the midline structures, mass effect, or extra-axial abnormalities are shown. Atherosclerotic calcifications are present in the intracranial segments of the internal carotid arteries. Mucous retention cyst is in the right maxillary sinus. The orbits appear normal. There are no acute fractures of the calvaria or scalp swelling. Impression: No acute intracranial hemorrhage, no evidence of acute territorial infarction or other acute intracranial disease process. ACT 112: Negative or not required by law. Electronically signed by: Bradley Reeves M.D. 08/20/2021 3:19 PM Discharge Plan Visit Data Chief Complaint: Stroke/CVA Symptoms Stated Complaint: stroke like symptoms ED Provider: Giorgio Mendiola Discharge Problem: Acute alteration in mental status, Hypomagnesemia Patient Disposition: Being Evaluated by Hospitalist Forms Stand Alone Forms: My [facility] [place] Prescriptions Prescriptions: No Action nitroglycerin 0.4 mg tablet, sublingual 0.4 mg sublingual DIRECTED PRN (Reason: Chest Pain) RF: 0 insulin aspart U-100 [Novolog U-100 Insulin aspart] 100 unit/mL solution 10 unit subcut AC RF: 0 tamsulosin 0.4 mg capsule 0.4 mg PO HS RF: 0 metformin 1,000 mg tablet 500 mg PO BID RF: 0 lisinopril 10 mg tablet 10 mg PO DAILY RF: 0 carvedilol 12.5 mg tablet 12.5 mg PO BID Qty: 60 RF: 0 Lantus U-100 Insulin 100 unit/mL solution See Rx Instructions .ROUTE .COMPLEX Qty: 10 RF: 0 clopidogrel [Plavix] 75 mg tablet 75 mg PO QAM Qty: 30 RF: 0 amlodipine [Norvasc] 5 mg tablet 5 mg PO QAM Qty: 30 RF: 0 aspirin 81 mg Tablet,Delayed Release (Dr/Ec) 81 mg PO QAM Qty: 30 RF: 0 baclofen 5 mg tablet 5 mg PO QAM Qty: 30 RF: 0 atorvastatin 80 mg tablet 80 mg PO QPM RF: 0 warfarin 2.5 mg Tablet 2.5 mg PO MO@1600 RF: 0 warfarin 5 mg Tablet 7 mg PO SUTUWETHFRSA@1600 RF: 0 Referrals Referrals: Dereck Zaman DO [Physician] -
[2021-08-20 14:46] LABS: Basophils # (auto) 0.02 K/uL (0-0.2); Basophils % (auto) 0.2 %; Eosinophils # (auto) 0.04 K/uL (0-0.5); Eosinophils % (auto) 0.4 %; Hemoglobin 12.6 g/dL (14.0-18.0); Immature Granulocytes # (auto) 0.02 K/uL (0.00-0.02); Immature Granulocytes % (auto) 0.2 %; Lymphocytes # (auto) 1.55 K/uL (1.2-3.4); Lymphocytes % (auto) 14.4 %; Mean Corpuscular Hemoglobin 24.9 pg (25-34); Mean Corpuscular Hgb Conc 32.3 g/dL (32-36); Mean Corpuscular Volume 76.9 fL (80-100); Mean Platelet Volume 10.6 fL (7.4-10.4); Monocytes # (auto) 0.68 K/uL (0.11-0.59); Monocytes % (auto) 6.3 %; Neutrophils # (auto) 8.48 K/uL (1.4-6.5); Neutrophils % (auto) 78.5 %; Platelet Count 306 K/uL (130-400); RDW Coefficient of Variation 15.1 % (11.5-14.5); RDW Standard Deviation 42.1 fL (36.4-46.3); Red Blood Count 5.07 M/uL (4.7-6.1); White Blood Count 10.79 K/uL (4.8-10.8)
--- NOTE | 2021-08-20 14:52 | XRay Report ---
SINGLE VIEW CHEST CLINICAL HISTORY: Generalized weakness. FINDINGS: An AP, portable, upright chest radiograph is compared to study dated 05/17/2021 and correla blank with chest CT dated 11/17/2018. The examination is degraded by portable technique and patient rota tion. The patient is status post midline sternotomy. The heart is enlarged noting atherosclerotic tomy cification of the thoracic aorta. The pulmonary vasculature is noncongested. Chronic interstitial thi ckening is similar to previous. The lungs and pleural spaces are clear. No pneumothorax is seen. The skeletal structures are osteopenic. The bony thorax is grossly intact. IMPRESSION: Cardiomegaly with no acute cardiopulmonary abnormality. ACT 112: Negative or not required by law. Electronically signed by: Donny Fernando M.D. 08/20/2021 2:50 PM
[2021-08-20 14:56] LABS: iSTAT Creatinine 0.9 mg/dl (0.6-1.3); iSTAT Hemoglobin 13.9 g/dl (14.0-18.0); iSTAT Ionized Calcium 1.14 mmol/l (1.12-1.32); iSTAT Potassium 3.4 mmol/L (3.3-5.0)
[2021-08-20 15:04] LABS: INR 3.9 (0.9-1.1); Partial Thromboplastin Ratio 1.5; Partial Thromboplastin Time 41.9 Seconds (21.0-31.0); Prothrombin Time 38.9 Seconds (9.0-12.0)
[2021-08-20 15:08] LABS: Alanine Aminotransferase 16 U/L (7-52); Albumin Globulin Ratio 1.2 (0.9-2); Albumin Level 3.8 gm/dl (3.4-5.0); Alkaline Phosphatase 84 U/L (34-104); Anion Gap 9 (3-11); Aspartate Aminotransferase 11 U/L (13-39); BUN Creatinine Ratio 15.7 (10-20); Bilirubin,Total 0.5 mg/dl (0.2-1.0); Blood Urea Nitrogen 16 mg/dl (6-23); Calcium 8.7 mg/dl (8.5-10.1); Carbon Dioxide 27 mmol/L (21-32); Chloride 103 mmol/L (98-107); Creatine Kinase 336 U/L (30-223); Est GFR (African American) 90.2 ml/min; Est GFR (Non-African American) 77.9 ml/min; Globulin 3.2 gm/dl (2.5-4.0); Glucose 165 mg/dl (70-99(Fasting)); Magnesium 1.2 mg/dl (1.7-2.4); Potassium 3.4 mmol/L (3.5-5.1); Sodium 139 mmol/L (136-145)
[2021-08-20 15:09] LABS: Troponin I < 0.03 ng/ml (0-0.04)
--- NOTE | 2021-08-20 15:21 | CT Scan Report ---
CT head/brain wo con CLINICAL HISTORY: AMS Technique: Contiguous axial CT images of the head were acquired from the base of the skull to the eliezer sharifa without intravenous contrast administration. Images were viewed in brain, subdural and bone [facility]. Automated dose lowering techniques and/or adjustment according to patient size were utilized for this exam. Comparison: Comparison is made to CT head 05/17/2021 Findings: Areas of decreased attenuation are present in the periventricular and subcortical white matter bilate rally consistent with small vessel ischemic disease. Generalized cerebral atrophy with commensurate e nlargement of the ventricles, sulci, and cisterns is also present. There is no acute intracranial hem orrhage or evidence of acute territorial infarction. No shift of the midline structures, mass effect, or extra-axial abnormalities are shown. Atherosclerotic calcifications are present in the intracran ial segments of the internal carotid arteries. Mucous retention cyst is in the right maxillary sinus. The orbits appear normal. There are no acute fractures of the calvaria or scalp swelling. Impression: No acute intracranial hemorrhage, no evidence of acute territorial infarction or other acute intracra nial disease process. ACT 112: Negative or not required by law. Electronically signed by: Bradley Reeves M.D. 08/20/2021 3:19 PM
[2021-08-20] MEDS ORDERED: SODIUM CHLORIDE 0.9% 1000ML 500 ML IV ONE (16:03)
[2021-08-20] MEDS: MAGNESIUM SULFATE / D5W 1 GM/100 ML BAG IV SCH ×2 (16:40→17:38)
[2021-08-20 17:02] LABS: Appearance Urine Clear (Clear); Bacteria Urine Automated Negative (Negative); Bilirubin Urine Negative (Negative); Blood Urine Negative (Negative); Color Urine Yellow; Epithelial Cell Urine Auto 20-30 /lpf (0-5); Glucose Urine UA 1+ (Negative); Ketones Urine Negative (Negative); Leukocyte Esterase Urine Negative (Negative); Nitrite Urine Negative (Negative); Protein Urine Trace (Negative); RBC Urine Automated 0-4 /hpf (0-4); Specific Gravity Urine 1.025 (1.000-1.030); Urobilinogen Urine Negative (Negative)
[2021-08-20] MEDS ORDERED: POTASSIUM CHLORIDE 20 MEQ/15 ML UDC PO STA (19:04)
[2021-08-20] MEDS ORDERED: MAGNESIUM SULFATE / D5W 1 GM/100 ML BAG IV ONE (19:04)
--- NOTE | 2021-08-20 19:37 | History & Physical Report ---
Date of Service August 20, 2021 Assessment & Plan (1) Near syncope: Plan: Possible secondary to hypotension. We are lowering the dose of lisinopril and amlodipine. Patient back to baseline as per the patient's .We will monitor the patient in the telemetry setting (2) History of CVA (cerebrovascular accident): Plan: History of such no indication of acute CVA. Patient appears nonfocal from base line. No indication from about any other complaints for such. (3) CAD (coronary artery disease): Plan: No complaints of chest pain. Troponin has been negative. Continue with aspirin Plavix. (4) Type 2 diabetes mellitus: Plan: We will continue long-acting 14 units in the morning and 8 units in the evening. Coverage. Obtain an A1c. (5) HTN (hypertension): Plan: Reduce amlodipine from 5 to 2.5 and lisinopril from 10 to5. This is to be initiated from tomorrow. Monitor and adjust as needed. 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 INR is supratherapeutic. Will hold Coumadin for now. Recheck INR level in the morning. (7) Stage III pressure ulcer of left ankle: Plan: Wound care consultation (8) Pressure injury of deep tissue of right heel: Plan: Wound care consultation Admission and Anticipated Discharge Date Admission Date: 08/20/2021 History of Present Illness Chief Complaint: Lethargy Primary Care Provider: Shane Gonzalez MD Patient is a 61-year-old male here in the company of his wif,, With a past medical history of recurrent CVA largely bedbound with more marked right-sided residual weakness, proximal atrial fibrillation, left ankle ulcer right heel ulcer, peripheral arterial disease. BPH. CAD diabetes mellitus hypertension right foot drop presenting after patient's noted the patient to be more lethargic and not as responsive as baseline. Patient was eval by the ER staff no significant finding was noted patient did receive IV fluids after which currently the patient's is saying that the patient is back to his normal self. Patient noted to have borderline blood pressure in the ER which has improved by IV hydration.Patient otherwise denies significant chest pain shortness of breath nausea vomiting or diarrhea. Denies any significant dysuria. Otherwise patient himself is currently denying active complaints does not recall the events of earlier today. states that he has done this before when his blood pressure had dropped. As per the patient's medications are being adjusted and lisinopril has been decreased. States she checked her sugar level at home and that was adequate however she did not get the chance to check his blood pressure.As per the patient's patient is unable to take care of his finances needs help at all times. Patient does normally communicate with her if he has any complaints. Otherwise patient is largely confused at baseline. We are called by the ER attending to observe the patient. Allergies Allergy/AdvReac Type Severity Reaction Status Date / Time No Known Allergies Allergy Verified 08/20/21 16:14 Home Medications Medication Instructions Recorded Confirmed Type nitroglycerin 0.4 mg sublingual 0.4 mg SUBLINGUAL DIRECTED PRN 08/09/19 08/20/21 History tablet amlodipine 5 mg tablet (Norvasc) 5 mg PO QAM #30 tab 09/22/20 08/20/21 Rx aspirin 81 mg tablet,delayed 81 mg PO QAM #30 tab 09/22/20 08/20/21 Rx release baclofen 5 mg tablet 5 mg PO QAM #30 tab 09/22/20 08/20/21 Rx carvedilol 12.5 mg tablet 12.5 mg PO BID #60 tab 09/22/20 08/20/21 Rx clopidogrel 75 mg tablet (Plavix) 75 mg PO QAM #30 tab 09/22/20 08/20/21 Rx insulin glargine 100 unit/mL See Rx Instructions .ROUTE 09/22/20 08/20/21 Rx subcutaneous solution (Lantus .COMPLEX #10 ml U-100 Insulin) insulin aspart U-100 100 unit/mL 10 unit SUBCUT AC 01/11/21 08/20/21 History subcutaneous solution (Novolog U-100 Insulin aspart) metformin 1,000 mg tablet 500 mg PO BID 01/11/21 08/20/21 History tamsulosin 0.4 mg capsule 0.4 mg PO HS 01/11/21 08/20/21 History atorvastatin 80 mg tablet 80 mg PO QPM 05/17/21 08/20/21 History warfarin 2.5 mg tablet 2.5 mg PO MO@1600 05/17/21 08/20/21 History warfarin 5 mg tablet 7 mg PO SUTUWETHFRSA@1600 05/17/21 08/20/21 History lisinopril 10 mg tablet 10 mg PO DAILY 08/20/21 08/20/21 History 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" Aortic valve stenosis BPH with obstruction/lower urinary tract symptoms CAD (coronary artery disease) Carotid stenosis Diabetic peripheral neuropathy associated with type 2 diabetes mellitus Dyslipidemia Hemiplegia affecting right dominant side History of CVA (cerebrovascular accident) History of pancreatitis HTN (hypertension) Hypomagnesemia Monoplegia affecting right dominant side Obesity Osteomyelitis of [place] toe of right foot Proliferative diabetic retinopathy Retinal edema Right foot drop Status post cerebrovascular accident Status post myocardial infarction Superior mesenteric artery stenosis Type 2 diabetes mellitus Surgical History Hx of vitrectomy S/P angioplasty with stent S/P CABG x 3 S/P PTCA (percutaneous transluminal coronary angioplasty) Family History Father Heart disease Social History Smoking Status: Former smoker Tobacco Type: Cigarettes Second Hand Exposure: No; Hx Alcohol Use: No Hx Substance Use: No Preferred Language: [place] Communication Ability: Effective Visual Impairment: No Limitations Hearing Ability: Normal Small Stock Facer Required: No Beliefs That Will Affect Care: None marital status: Current Living Situation: Spouse Current Living Situation Comment: Lives with in a split level home but he is in basement current occupational status: disabled Feels Safe at Home: Yes Assistive Devices: Walker Review of Systems Review of Systems: All systems reviewed and negative other than as described above in the history and physical Physical Exam Physical Exam: Constitutional:WD/WN, vitals as above ENMT: external ear and nose normal, oropharynx normal Neck: trachea midline, no thyromegaly Respiratory: normal respiratory effort, lungs clear to ausc ultationAuscultation:no rhonchi and no wheezes Cardiovascular:RRR, 2 x 6 systolic ejection murmur most prominent in the aortic area, no edema Gastrointestinal (Abdomen):normal bowel sounds, soft, nontender, no hepatosplenomegaly Musculoskeletal:no cyanosis or clubbing, extremities motor strength 5/5 Skin: no rashes, warm and dry Neurologic: PERRL, EOMI, Psychiatric: [id number] at baseline as per . Genitourinary:Not assessed Lymphatic: no cervical or axillary lymphadenopathy Results & Data Results & Data ([facility]) Vital Signs (Past 12 Hours) Vital Signs Temp Pulse Pulse Resp BP BP Pulse Ox 08/20/21 18:00 80 14 140/66 98 08/20/21 16:48 79 14 143/69 H 99 08/20/21 14:30 75 21 98 08/20/21 14:15 36.4 C L 73 14 90/53 L 99 Laboratory Results Short CBC 08/20/21 Range/Units 14:34 WBC 10.79 (4.8-10.8) K/uL Hgb 12.6 L (14.0-18.0) g/dL Hct 39.0 L (42-52) % Plt Count 306 (130-400) K/uL BMP 08/20/21 14:34 Sodium 139 Potassium 3.4 L Chloride 103 Carbon Dioxide 27 BUN 16 Creatinine 1.02 Glucose 165 H Calcium 8.7 Cardiac Enzymes 08/20/21 Range/Units 14:34 Total Creatine Kinase 336 H (30-223) U/L Troponin I < 0.03 (0-0.04) ng/ml Liver Function 08/20/21 Range/Units 14:34 Total Bilirubin 0.5 (0.2-1.0) mg/dl AST 11 L (13-39) U/L ALT 16 (7-52) U/L Alkaline Phosphatase 84 (34-104) U/L Albumin 3.8 (3.4-5.0) gm/dl Urine 08/20/21 Range/Units 16:40 Urine Color Yellow Urine Appearance Clear (Clear) Urine pH 5.0 (4.5-7.5) Ur Specific [place] 1.025 (1.000-1.030) Urine Protein Trace H (Negative) Urine Glucose (UA) 1+ H (Negative) Diagnostic Findings Chest X-Ray 08/20/21 14:15 SINGLE VIEW CHEST CLINICAL HISTORY: Generalized weakness. FINDINGS: An AP, portable, upright chest radiograph is compared to study dated 05/17/2021 and correlated with chest CT dated 11/17/2018. The examination is degraded by portable technique and patient rotation. The patient is status post midline sternotomy. The heart is enlarged noting atherosclerotic calcification of the thoracic aorta. The pulmonary vasculature is noncongested. Chronic interstitial thickening is similar to previous. The lungs and pleural spaces are clear. No pneumothorax is seen. The skeletal structures are osteopenic. The bony thorax is grossly intact. IMPRESSION: Cardiomegaly with no acute cardiopulmonary abnormality. ACT 112: Negative or not required by law. Electronically signed by: Donny Fernando M.D. 08/20/2021 2:[address] 08/20/21 14:15 CT head/brain wo con CLINICAL HISTORY: AMS Technique: Contiguous axial CT images of the head were acquired from the base of the skull to the vertex without intravenous contrast administration. Images were viewed in brain, subdural and bone windows. Automated dose lowering techniques and/or adjustment according to patient size were utilized for this exam. Comparison: Comparison is made to CT head 05/17/2021 Findings: Areas of decreased attenuation are present in the periventricular and subcortical white matter bilaterally consistent with small vessel ischemic disease. Generalized cerebral atrophy with commensurate enlargement of the ventricles, sulci, and cisterns is also present. There is no acute intracranial hemorrhage or evidence of acute territorial infarction. No shift of the midline structures, mass effect, or extra-axial abnormalities are shown. Atherosclerotic calcifications are present in the intracranial segments of the internal carotid arteries. Mucous retention cyst is in the right maxillary sinus. The orbits appear normal. There are no acute fractures of the calvaria or scalp swelling. Impression: No acute intracranial hemorrhage, no evidence of acute territorial infarction or other acute intracranial disease process. ACT 112: Negative or not required by law. Electronically signed by: Bradley Reeves M.D. 08/20/2021 3:19 PM ECG Additional Comments: Normal sinus rhythm at 73 beats a minute questionable inferior infarct and anterolateral infarct noted on previous imaging. No significant change noted from previous Code Status & VTE Plan VTE Prophylaxis Plan VTE Prophylaxis will be ordered: Yes
[2021-08-20 19:55] LABS: INR 3.9 (0.9-1.1); Prothrombin Time 38.2 Seconds (9.0-12.0)
--- NOTE | 2021-08-20 20:55 | XRay Report ---
XR foot RT 2V CLINICAL HISTORY: Ulcer ? Osteomyelitis COMPARISON: Right first toe radiographs December 18, 2018. MRI of the right foot December 21, 2018. FINDINGS: Note is made of erosion of the distal tuft of the distal phalanx of the right first toe. W hen correlating with prior exams, this is likely chronic. There is also subtle erosion of the distal tuft of the distal phalanx of the right second toe. Deformity of the right first through fourth toes is probably chronic. There is a linear radiodensity which projects over the base of the right fifth m etatarsal. This favors a foreign body. On lateral projection, there is apparent subtle erosion of the posterior aspect of the calcaneus with possible overlying ulcer. No acute fracture is identified on this exam. Mild degenerative changes within the right foot are present. IMPRESSION: 1. Apparent subtle erosion of the posterior aspect of the calcaneus with overlying ulcer. This may re flect osteomyelitis. 2. Erosion of the distal tuft of the distal phalanx of the right second toe. This may reflect osteomy elitis although is age indeterminate. 3. Erosion of the distal tuft of the distal phalanx of the right first toe. This finding is likely ch ronic. ACT 112: Negative or not required by law. Electronically signed by: Pal Blunt M.D. 08/20/2021 8:49 PM
--- NOTE | 2021-08-20 21:02 | XRay Report ---
XR foot LT 2V CLINICAL HISTORY: Ulcer. ? Osteomyelitis COMPARISON: None FINDINGS: Alignment of the left foot is anatomic. Tarsometatarsal joints are intact. There is extens christopher vascular calcification. No acute fracture is present. There is no evidence for acute osteomyeliti s within the left foot. Mild degenerative changes within the left foot are present. IMPRESSION: No acute fracture. No evidence for acute osteomyelitis within the left foot. ACT 112: Negative or not required by law. Electronically signed by: Pal Blunt M.D. 08/20/2021 9:01 PM
[2021-08-20] MEDS ORDERED: POLYETHYLENE (MIRALAX) 17 GM PACK PO PRN (21:57)
[2021-08-20] MEDS ORDERED: DEXTROSE 50% 50 ML SYRINGE IV PRN (21:57)
[2021-08-20] MEDS ORDERED: GLUCOSE 10 TABS/TUBE PO PRN (21:57)
[2021-08-20] MEDS ORDERED: ACETAMINOPHEN 325 MG TAB PO PRN (21:57)
[2021-08-20] MEDS ORDERED: GLUCAGON FOR INJ 1 MG VIAL SQ PRN (21:57)
[2021-08-20] MEDS ORDERED: MAGNESIUM HYDROXIDE SUSP 30 ML UDC PO PRN (21:57)
[2021-08-20] MEDS ORDERED: CARBOHYDRATES FOR HYPOGLYCEMIA PO PRN (21:57)
[2021-08-20] MEDS ORDERED: GLUCOSE 40% GEL 15 GM TUBE PO PRN (21:57)
[2021-08-20] MEDS ORDERED: NITROGLYCERIN SL 0.4 MG/TAB TAB SL PRN (21:57)
[2021-08-20] MEDS ORDERED: ALUMINUM/MAGNESIUM SUSP 30 ML UDC PO PRN (21:57)
[2021-08-20] MEDS: carvediloL 12.5 MG TAB PO SCH (22:18)
[2021-08-20] MEDS: TAMSULOSIN HCL 0.4 MG CAP PO SCH (22:18)
[2021-08-20] MEDS: ATORVASTATIN 40 MG TAB PO SCH (22:18)
[2021-08-20] MEDS: INSULIN ASPART PER UNIT SC SCH (23:37)
[2021-08-20] MEDS: INSULIN DETEMIR FLEXPEN/FLEX TOUCH 100 UNITS/ML 3ML SC SCH (23:45)
[2021-08-21] MEDS ORDERED: GADOBUTROL 65ML VIAL IV ONE (00:19)
[2021-08-21] MEDS: POTASSIUM CHLORIDE / WTR 10 MEQ/100 ML PLCT IV SCH ×2 (01:09→02:12)
[2021-08-21 06:43] LABS: Hematocrit (blood only) 34.3 % (42-52); Hemoglobin 11.4 g/dL (14.0-18.0); Mean Corpuscular Hemoglobin 25.2 pg (25-34); Mean Corpuscular Hgb Conc 33.2 g/dL (32-36); Mean Corpuscular Volume 75.9 fL (80-100); Mean Platelet Volume 10.6 fL (7.4-10.4); Platelet Count 245 K/uL (130-400); RDW Coefficient of Variation 15.1 % (11.5-14.5); RDW Standard Deviation 41.9 fL (36.4-46.3); Red Blood Count 4.52 M/uL (4.7-6.1); White Blood Count 8.29 K/uL (4.8-10.8)
[2021-08-21 07:28] LABS: INR 3.3 (0.9-1.1); Prothrombin Time 32.6 Seconds (9.0-12.0)
[2021-08-21] MEDS: ASPIRIN 81 MG ECTAB PO SCH (07:39)
[2021-08-21] MEDS: amLODIPine BESYLATE 5 MG TAB PO SCH (07:39)
[2021-08-21] MEDS: CLOPIDOGREL BISULFATE 75 MG TAB PO SCH (07:40)
[2021-08-21] MEDS: lisinopril 5 MG TAB PO SCH (07:40)
[2021-08-21] MEDS: carvediloL 12.5 MG TAB PO SCH ×2 (07:40→20:06)
[2021-08-21] MEDS: BACLOFEN 10 MG TAB PO SCH (07:40)
[2021-08-21] MEDS: INSULIN ASPART PER UNIT SC SCH ×4 (07:41→20:21)
[2021-08-21 07:55] LABS: Anion Gap 8 (3-11); BUN Creatinine Ratio 22.2 (10-20); Blood Urea Nitrogen 12 mg/dl (6-23); Calcium 8.2 mg/dl (8.5-10.1); Carbon Dioxide 24 mmol/L (21-32); Chloride 105 mmol/L (98-107); Creatine Kinase 365 U/L (30-223); Est GFR (African American) 129.5 ml/min; Est GFR (Non-African American) 111.7 ml/min; Glucose 131 mg/dl (70-99(Fasting)); Magnesium 1.6 mg/dl (1.7-2.4); Phosphorus 2.6 mg/dl (2.5-4.9); Potassium 3.6 mmol/L (3.5-5.1); Sodium 137 mmol/L (136-145)
--- NOTE | 2021-08-21 08:00 | Magnetic Resonance Report ---
MR brain wo/w con HISTORY: 61 years-old Male cva? Acute strokelike symptoms COMPARISON: Head CT 08/20/2021, brain MRI 05/17/2021 TECHNIQUE: Multiplanar multisequence MRI of the brain was obtained both with and without the use of 8 .5 cc Gadavist FINDINGS: Warehouse Administrator localizer images demonstrate no gross extracranial abnormality. Study is motion degraded. The m idline structures appear unremarkable. Numerous punctate foci of hemosiderin deposition redemonstrate d within the cerebral hemispheres and basal ganglia. Chronic lacunar infarcts of basal ganglia and ce ntral sarabjit. No acute intracranial hemorrhage, midline shift, abnormal extra axial collection, hydroce phalus or intracranial mass. Age-related involutional changes. Extensive T2/FLAIR hyperintense foci t hroughout the white matter redemonstrated suggestive of chronic microvascular ischemic disease. Small area of encephalomalacia suggested within the right parietal occipital lobe. There is no restricted diffusion to suggest acute or subacute infarct. There is no abnormal intra-axial or extra-axial enhancement. Cerebral venous sinuses and major arteri al flow voids appear patent. Skull, orbits and soft tissues are unremarkable. Polypoid mucosal thicke wally of the right maxillary sinus. The mastoid air cells are generally clear. IMPRESSION: 1. Motion degraded exam. No acute intracranial abnormality, specifically there is no acute or subacut e infarct. 2. Involutional changes with chronic microvascular ischemic disease. 3. No abnormal enhancement. 4. Chronic basal ganglia and pontine lacunar infarcts. ACT 112: Negative or not required by law. The above report was generated using voice recognition software. It may contain grammatical, syntax o r spelling errors. Electronically signed by: Abdon Gr M.D. 08/21/2021 7:58 AM
[2021-08-21] MEDS: INSULIN DETEMIR FLEXPEN/FLEX TOUCH 100 UNITS/ML 3ML SC SCH ×2 (08:53→20:24)
[2021-08-21] MEDS ORDERED: amLODIPine BESYLATE 5 MG TAB PO ONE (10:29)
[2021-08-21] MEDS ORDERED: lisinopril 5 MG TAB PO ONE (10:29)
[2021-08-21 10:45] LABS: Estimated Average Glucose 146 mg/dl; Hemoglobin A1C 6.7 % (4.5-5.6)
--- NOTE | 2021-08-21 11:44 | Orthopedic Consultation ---
Date of Consultation August 21, 2021 Assessment & Plan (1) Pressure injury of deep tissue of right heel: The right heel ulceration appears to be healing. X-ray reviewed. I will discussed the case with Dr. Kaur. We will likely plan on MRI of the right foot and heel to rule out possible osteomyelitis. History of Present Illness Reason for Consultation: Question osteomyelitis right heel Attending Physician: Rigo Roa MD History of Present Illness Patient is a 61-year-old male with a past medical history of recurrent CVA largely bedbound with more marked right-sided residual weakness, proximal atrial fibrillation, left ankle ulcer right heel ulcer, peripheral arterial disease. BPH. CAD diabetes mellitus hypertension right foot drop presenting after patient's noted the patient to be more lethargic and not as responsive as baseline. Patient has been undergoing care of both of his feet from the [facility] wound care team. His last visit noted in the chart was and at the end of June of this year. [facility] status changes as noted above. With history of ulcerations on both feet, x-rays were taken of the left and right foot. Left foot was clear of any erosions or osteomyelitis. Right foot was showing erosion of the posterior calcaneus and an area where he had had a previous ulcer. Also noted erosions of the distal first and second toes which were questioning osteomyelitis versus chronic changes. We have been asked to see the patient for the possible osteomyelitis of his right calcaneus. Currently the patient is lying in bed awake and alert. With his history, the patient is able to converse somewhat but is not fully answering questions. Allergies Allergy/AdvReac Type Severity Reaction Status Date / Time No Known Allergies Allergy Verified 08/20/21 16:14 Home Medications Medication Instructions Recorded Confirmed Type nitroglycerin 0.4 mg sublingual 0.4 mg SUBLINGUAL DIRECTED PRN 08/09/19 08/20/21 History tablet amlodipine 5 mg tablet (Norvasc) 5 mg PO QAM #30 tab 09/22/20 08/20/21 Rx aspirin 81 mg tablet,delayed 81 mg PO QAM #30 tab 09/22/20 08/20/21 Rx release baclofen 5 mg tablet 5 mg PO QAM #30 tab 09/22/20 08/20/21 Rx carvedilol 12.5 mg tablet 12.5 mg PO BID #60 tab 09/22/20 08/20/21 Rx clopidogrel 75 mg tablet (Plavix) 75 mg PO QAM #30 tab 09/22/20 08/20/21 Rx insulin glargine 100 unit/mL See Rx Instructions .ROUTE 09/22/20 08/20/21 Rx subcutaneous solution (Lantus .COMPLEX #10 ml U-100 Insulin) insulin aspart U-100 100 unit/mL 10 unit SUBCUT AC 01/11/21 08/20/21 History subcutaneous solution (Novolog U-100 Insulin aspart) metformin 1,000 mg tablet 500 mg PO BID 01/11/21 08/20/21 History tamsulosin 0.4 mg capsule 0.4 mg PO HS 01/11/21 08/20/21 History atorvastatin 80 mg tablet 80 mg PO QPM 05/17/21 08/20/21 History warfarin 2.5 mg tablet 2.5 mg PO MO@1600 05/17/21 08/20/21 History warfarin 5 mg tablet 7 mg PO SUTUWETHFRSA@1600 05/17/21 08/20/21 History lisinopril 10 mg tablet 10 mg PO DAILY 08/20/21 08/20/21 History Patient History Medical History 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" Aortic valve stenosis BPH with obstruction/lower urinary tract symptoms CAD (coronary artery disease) Carotid stenosis Diabetic peripheral neuropathy associated with type 2 diabetes mellitus Dyslipidemia Hemiplegia affecting right dominant side History of CVA (cerebrovascular accident) History of pancreatitis HTN (hypertension) Hypomagnesemia Monoplegia affecting right dominant side Obesity Osteomyelitis of great toe of right foot Proliferative diabetic retinopathy Retinal edema Right foot drop Status post cerebrovascular accident Status post myocardial infarction Superior mesenteric artery stenosis Type 2 diabetes mellitus Surgical History Hx of vitrectomy S/P angioplasty with stent S/P CABG x 3 S/P PTCA (percutaneous transluminal coronary angioplasty) Family History Father Heart disease Social History Smoking Status: Former smoker Tobacco Type: Cigarettes Second Hand Exposure: No; Hx Alcohol Use: No Hx Substance Use: No Preferred Language: Citizen Of [place] Communication Ability: Effective Visual Impairment: No Limitations Hearing Ability: Normal Third Loader Required: No Beliefs That Will Affect Care: None marital status: Current Living Situation: Spouse Current Living Situation Comment: Lives with in a split level home but he is in basement current occupational status: disabled Feels Safe at Home: Yes Physical Exam Physical Exam: Patient is a 61-year-old white male. Awake and alert. Pleasantly confused. Answering some questions. No acute distress. Pleasant cooperative. On examination the patient's right heel, there is an area that is approximately 3 cm in circumference that has a dark rubor to it where an ulceration had been. This has been apparently healing well and there is no open area of ulcer in the region but does have a small central portion of callus. He appears to have a question of some mild discomfort on palpation of this area but no obvious fluctuance and no obvious bright erythema noted. No drainage noted. No foul odor. Examination of the toes does not appear to show any erythema noted at the distal portions. There also appears to be a small foreign body at the base of the fifth metatarsal but no obvious areas of infection and or entry or exits of this foreign body. Results & Data ([facility]) Vital Signs (Past 12 Hours) Vital Signs Temp Pulse Pulse Resp BP Pulse Ox 08/21/21 11:39 36.6 C 88 18 157/79 H 97 08/21/21 09:00 183/91 H 08/21/21 08:00 73 08/21/21 07:48 36.6 C 90 19 201/102 H 97 08/21/21 03:51 36.7 C 88 20 126/78 96 08/21/21 01:00 36.4 C L 88 18 145/87 H 100 Diagnostic Findings Laboratory Results WBC 8.29 K/uL (4.8-10.8) 08/21/21 06:07 RBC 4.52 M/uL (4.7-6.1) L 08/21/21 06:07 Hgb 11.4 g/dL (14.0-18.0) L 08/21/21 06:07 POC Hgb 13.9 g/dl (14.0-18.0) L 08/20/21 14:41 Hct 34.3 % (42-52) L 08/21/21 06:07 POC Hct 41 % (42-52) L 08/20/21 14:41 MCV 75.9 fL (80-100) L 08/21/21 06:07 MCH 25.2 pg (25-34) 08/21/21 06:07 MCHC 33.2 g/dL (32-36) 08/21/21 06:07 RDW Std Deviation 41.9 fL (36.4-46.3) 08/21/21 06:07 RDW Coeff of Caroline 15.1 % (11.5-14.5) H 08/21/21 06:07 Plt Count 245 K/uL (130-400) 08/21/21 06:07 MPV 10.6 fL (7.4-10.4) H 08/21/21 06:07 Immature Gran % (Auto) 0.2 % 08/20/21 14:34 Neut % (Auto) 78.5 % 08/20/21 14:34 Lymph % (Auto) 14.4 % 08/20/21 14:34 Bulloch % (Auto) 6.3 % 08/20/21 14:34 Eos % (Auto) 0.4 % 08/20/21 14:34 Baso % (Auto) 0.2 % 08/20/21 14:34 Neut # (Auto) 8.48 K/uL (1.4-6.5) H 08/20/21 14:34 Lymph # (Auto) 1.55 K/uL (1.2-3.4) 08/20/21 14:34 Bulloch # (Auto) 0.68 K/uL (0.11-0.59) H 08/20/21 14:34 Eos # (Auto) 0.04 K/uL (0-0.5) 08/20/21 14:34 Baso # (Auto) 0.02 K/uL (0-0.2) 08/20/21 14:34 Immature Gran # (Auto) 0.02 K/uL (0.00-0.02) 08/20/21 14:34 PT 32.6 Seconds (9.0-12.0) H 08/21/21 06:07 INR 3.3 (0.9-1.1) H 08/21/21 06:07 APTT 41.9 Seconds (21.0-31.0) H 08/20/21 14:34 PTT Ratio 1.5 08/20/21 14:34 POC Sodium 141 mmol/L (135-144) 08/20/21 14:41 Sodium 137 mmol/L (136-145) 08/21/21 06:07 POC Potassium 3.4 mmol/L (3.3-5.0) 08/20/21 14:41 Potassium 3.6 mmol/L (3.5-5.1) 08/21/21 06:07 POC Chloride 101 mmol/L (101-112) 08/20/21 14:41 Chloride 105 mmol/L (98-107) 08/21/21 06:07 Carbon Dioxide 24 mmol/L (21-32) 08/21/21 06:07 POC Total CO2 25 mmol/L (24-31) 08/20/21 14:41 Anion Gap 8 (3-11) 08/21/21 06:07 POC Anion Gap 20.0 mmol/L (16-25) 08/20/21 14:41 POC BUN 16 mg/dl (7-18) 08/20/21 14:41 BUN 12 mg/dl (6-23) 08/21/21 06:07 Creatinine 0.54 mg/dl (0.6-1.4) L D 08/21/21 06:07 POC Creatinine 0.9 mg/dl (0.6-1.3) 08/20/21 14:41 Est Cr Clr Drug Dosing Not Reportable 08/21/21 06:07 Est GFR ( Amer) 129.5 ml/min 08/21/21 06:07 Est GFR (Non-Af Amer) 111.7 ml/min 08/21/21 06:07 BUN/Creatinine Ratio 22.2 (10-20) H 08/21/21 06:07 Glucose 131 mg/dl (70-99(Fasting)) H 08/21/21 06:07 POC Glucose 216 mg/dl (70-99) H 08/21/21 11:17 POC Glucose (other) 163 mg/dl (70-99) H 08/20/21 14:41 Estimat Average Glucose 146 mg/dl 08/21/21 06:07 Hemoglobin A1c 6.7 % (4.5-5.6) H 08/21/21 06:07 Calcium 8.2 mg/dl (8.5-10.1) L 08/21/21 06:07 POC Ioniz Calcium Carolee 1.14 mmol/l (1.12-1.32) 08/20/21 14:41 Phosphorus 2.6 mg/dl (2.5-4.9) 08/21/21 06:07 Magnesium 1.6 mg/dl (1.7-2.4) L 08/21/21 06:07 Total Bilirubin 0.5 mg/dl (0.2-1.0) 08/20/21 14:34 AST 11 U/L (13-39) L 08/20/21 14:34 ALT 16 U/L (7-52) 08/20/21 14:34 Alkaline Phosphatase 84 U/L (34-104) 08/20/21 14:34 Total Creatine Kinase 365 U/L (30-223) H 08/21/21 06:07 Troponin I < 0.03 ng/ml (0-0.04) 08/20/21 14:34 Total Protein 7.0 gm/dl (6.0-8.3) 08/20/21 14:34 Albumin 3.8 gm/dl (3.4-5.0) 08/20/21 14:34 Globulin 3.2 gm/dl (2.5-4.0) 08/20/21 14:34 Albumin/Globulin Ratio 1.2 (0.9-2) 08/20/21 14:34 TSH 3.193 uIu/ml (0.300-4.500) 08/20/21 14:34 Random Cortisol 30.66 mcg/dl 08/20/21 14:34 Urine Color Yellow 08/20/21 16:40 Urine Appearance Clear (Clear) 08/20/21 16:40 Urine pH 5.0 (4.5-7.5) 08/20/21 16:40 Ur Specific Mc[place]en 1.025 (1.000-1.030) 08/20/21 16:40 Urine Protein Trace (Negative) H 08/20/21 16:40 Urine Glucose (UA) 1+ (Negative) H 08/20/21 16:40 Urine Ketones Negative (Negative) 08/20/21 16:40 Urine Blood Negative (Negative) 08/20/21 16:40 Urine Nitrite Negative (Negative) 08/20/21 16:40 Urine Bilirubin Negative (Negative) 08/20/21 16:40 Urine Urobilinogen Negative (Negative) 08/20/21 16:40 Ur Leukocyte Esterase Negative (Negative) 08/20/21 16:40 Urine WBC (Auto) 1-5 /hpf (0-5) 08/20/21 16:40 Urine RBC (Auto) 0-4 /hpf (0-4) 08/20/21 16:40 U Hyaline Cast (Auto) 10-30 /lpf (0-5) H 08/20/21 16:40 U Epithel Cells (Auto) 20-30 /lpf (0-5) H 08/20/21 16:40 Urine Bacteria (Auto) Negative (Negative) 08/20/21 16:40 SARS-CoV-2, RNA, NAAT NEGATIVE (NEGATIVE) 08/20/21 14:50 Impressions Chest X-Ray 08/20/21 14:15 SINGLE VIEW CHEST CLINICAL HISTORY: Generalized weakness. FINDINGS: An AP, portable, upright chest radiograph is compared to study dated 05/17/2021 and correlated with chest CT dated 11/17/2018. The examination is degraded by portable technique and patient rotation. The patient is status post midline sternotomy. The heart is enlarged noting atherosclerotic calcification of the thoracic aorta. The pulmonary vasculature is noncongested. Chronic interstitial thickening is similar to previous. The lungs and pleural spaces are clear. No pneumothorax is seen. The skeletal structures are osteopenic. The bony thorax is grossly intact. IMPRESSION: Cardiomegaly with no acute cardiopulmonary abnormality. ACT 112: Negative or not required by law. Electronically signed by: Donny Fernando M.D. 08/20/2021 2:[address] 08/20/21 14:15 CT head/brain wo con CLINICAL HISTORY: AMS Technique: Contiguous axial CT images of the head were acquired from the base of the skull to the vertex without intravenous contrast administration. Images were viewed in brain, subdural and bone windows. Automated dose lowering techniques and/or adjustment according to patient size were utilized for this exam. Comparison: Comparison is made to CT head 05/17/2021 Findings: Areas of decreased attenuation are present in the periventricular and subcortical white matter bilaterally consistent with small vessel ischemic disease. Generalized cerebral atrophy with commensurate enlargement of the ventricles, sulci, and cisterns is also present. There is no acute intracranial hemorrhage or evidence of acute territorial infarction. No shift of the midline structures, mass effect, or extra-axial abnormalities are shown. Atherosclerotic calcifications are present in the intracranial segments of the internal carotid arteries. Mucous retention cyst is in the right maxillary sinus. The orbits appear normal. There are no acute fractures of the calvaria or scalp swelling. Impression: No acute intracranial hemorrhage, no evidence of acute territorial infarction or other acute intracranial disease process. ACT 112: Negative or not required by law. Electronically signed by: Bradley Reeves M.D. 08/20/2021 3:19 PM Foot X-Ray 08/20/21 20:11 XR foot LT 2V CLINICAL HISTORY: Ulcer. ? Osteomyelitis COMPARISON: None FINDINGS: Alignment of the left foot is anatomic. Tarsometatarsal joints are intact. There is extensive vascular calcification. No acute fracture is present. There is no evidence for acute osteomyelitis within the left foot. Mild degenerative changes within the left foot are present. IMPRESSION: No acute fracture. No evidence for acute osteomyelitis within the left foot. ACT 112: Negative or not required by law. Electronically signed by: Pal Blunt M.D. 08/20/2021 9:01 PM XR foot RT 2V CLINICAL HISTORY: Ulcer ? Osteomyelitis COMPARISON: Right first toe radiographs December 18, 2018. MRI of the right foot December 21, 2018. FINDINGS: Note is made of erosion of the distal tuft of the distal phalanx of the right first toe. When correlating with prior exams, this is likely chronic. There is also subtle erosion of the distal tuft of the distal phalanx of the right second toe. Deformity of the right first through fourth toes is probably chronic. There is a linear radiodensity which projects over the base of the right fifth metatarsal. This favors a foreign body. On lateral projection, there is apparent subtle erosion of the posterior aspect of the calcaneus with possi ble overlying ulcer. No acute fracture is identified on this exam. Mild degenerative changes within the right foot are present. IMPRESSION: 1. Apparent subtle erosion of the posterior aspect of the calcaneus with overlying ulcer. This may reflect osteomyelitis. 2. Erosion of the distal tuft of the distal phalanx of the right second toe. This may reflect osteomyelitis although is age indeterminate. 3. Erosion of the distal tuft of the distal phalanx of the right first toe. This finding is likely chronic. Brain MRI 08/20/21 22:18 MR brain wo/w con HISTORY: 61 years-old Male cva? Acute strokelike symptoms COMPARISON: Head CT 08/20/2021, brain MRI 05/17/2021 TECHNIQUE: Multiplanar multisequence MRI of the brain was obtained both with and without the use of 8.5 cc Gadavist FINDINGS: Combustion Engineer localizer images demonstrate no gross extracranial abnormality. Study is motion degraded. The midline structures appear unremarkable. Numerous punctate foci of hemosiderin deposition redemonstrated within the cerebral hemispheres and basal ganglia. Chronic lacunar infarcts of basal ganglia and central sarabjit. No acute intracranial hemorrhage, midline shift, abnormal extra axial collection, hydrocephalus or intracranial mass. Age-related involutional changes. Extensive T2/FLAIR hyperintense foci throughout the white matter redemonstrated suggestive of chronic microvascular ischemic disease. Small area of encephalomalacia suggested within the right parietal occipital lobe. There is no restricted diffusion to suggest acute or subacute infarct. There is no abnormal intra-axial or extra-axial enhancement. Cerebral venous sinuses and major arterial flow voids appear patent. Skull, orbits and soft tissues are unremarkable. Polypoid mucosal thickening of the right maxillary sinus. The mastoid air cells are generally clear. IMPRESSION: 1. Motion degraded exam. No acute intracranial abnormality, specifically there is no acute or subacute infarct. 2. Involutional changes with chronic microvascular ischemic disease. 3. No abnormal enhancement. 4. Chronic basal ganglia and pontine lacunar infarcts. ACT 112: Negative or not required by law. The above report was generated using voice recognition software. It may contain grammatical, syntax or spelling errors. Electronically signed by: Abdon Gr M.D. 08/21/2021 7:58 AM
--- NOTE | 2021-08-21 12:53 | Hospitalist Progress Note ---
Date of Service August 21, 2021 Assessment & Plan (1) Acute alteration in mental status: Plan: (1) Near syncope: Plan: Possible secondary to hypotension Brain MRI: No acute CVA Patient awake and alert x3, answers questions appropriately Decrease lisinopril from 10 mg to 5 mg, amlodipine from 5 mg to 2.5 mg Monitor blood pressure (2) History of CVA (cerebrovascular accident): Plan: Continue aspirin, Plavix, Lipitor (3) CAD (coronary artery disease): Plan: No complaints of chest pain. Troponin has been negative. Continue with aspirin Plavix (4) Type 2 diabetes mellitus: Plan: We will continue long-acting 14 units in the morning and 8 units in the evening. A1c pending (5) HTN (hypertension): Plan: Management per #1 (6) Paroxysmal atrial fibrillation: Plan: Currently is In sinus. INR 3.1 Hold Coumadin Monitor INR daily next (7) pressure ulcer bilateral feet Plan: X-ray of the right foot reveals possible osteomyelitis of the heel We will consult orthopedic surgery plan of care discussed with patient and his in detail and at length all questions answered they are understanding, agreeable, comfortable with the plan of care Admission and Anticipated Discharge Date Admission Date: August 20, 2021 Subjective ff up for lethargy, low BP, etc seen resting in bed, comfortable Sitting up, awake and alert, oriented x3 Answers questions appropriately States he feels fine overall Requesting breakfast Denies headache, dizziness, new onset weakness or numbness No chest pain, palpitations Denies pain on his feet or legs No fevers or chills No other symptoms Review of Systems Review of Systems: all noted and negative except for above Physical Exam Physical Exam: General- oriented x 3, not in distress, speaks in sentences with no effort or accessory muscle use Head- atraumatic Eyes- PERRL, EOMI, anicteric ENT- oropharynx clear Neck- supple, no JVD, no adenopathy, no thyromegaly; carotids +2/2, no bruits appreciated Lungs- clear to auscultation bilaterally, no rales/wheezes Heart- normal rate, regular rhythm; no murmur, no gallop, no rub appreciated Abdomen- normal bowel sounds, nondistended, soft, nontender, no masses or hepatosplenomegaly Extremities- no pretibial edema, no calf tenderness; peripheral pulses intact Neuro- alert, oriented x 3; CN 2-12 grossly intact; motor 0/5 on the right, L 5/5 ;sensation 100% on all extremities except R side; no other gross focal neurologic deficits Skin- warm & dry Results & Data Results & Data ([facility]) Vital Signs (Past 12 Hours) Vital Signs Temp Pulse Pulse Resp BP Pulse Ox 08/21/21 11:39 36.6 C 88 18 157/79 H 97 08/21/21 09:00 183/91 H 08/21/21 08:00 73 08/21/21 07:48 36.6 C 90 19 201/102 H 97 08/21/21 03:51 36.7 C 88 20 126/78 96 08/21/21 01:00 36.4 C L 88 18 145/87 H 100 all noted and reviewed including below
[2021-08-21] MEDS ORDERED: MAGNESIUM OXIDE 400 MG TAB PO ONE (13:00)
[2021-08-21] MEDS: ATORVASTATIN 40 MG TAB PO SCH (20:05)
[2021-08-21] MEDS: TAMSULOSIN HCL 0.4 MG CAP PO SCH ×2 (20:07→23:54)
[2021-08-21] MEDS: MAGNESIUM OXIDE 400 MG TAB PO SCH (20:07)
--- NOTE | 2021-08-21 21:52 | Electrocardiogram Report ---
Test Reason : Blood Pressure : / mmHG Vent. Rate : 073 BPM Atrial Rate : 073 BPM P-R Int : 144 ms QRS Dur : 086 ms QT Int : 410 ms P-R-T Axes : 029 038 134 degrees QTc Int : 451 ms Normal sinus rhythm Possible Left atrial enlargement Inferior infarct Anterior infarct Abnormal ECG When compared with ECG of 18-MAY-2021 10:14, No significant change was found Confirmed by Jose Raul Parker ([id number]) on 08/21/2021 9:52:40 PM Referred By: Confirmed By:Jose Raul Parker
[2021-08-22 07:21] LABS: INR 1.8 (0.9-1.1); Prothrombin Time 18.8 Seconds (9.0-12.0)
[2021-08-22] MEDS: INSULIN ASPART PER UNIT SC SCH ×4 (08:09→20:24)
[2021-08-22] MEDS: lisinopril 5 MG TAB PO SCH (09:05)
[2021-08-22] MEDS: CLOPIDOGREL BISULFATE 75 MG TAB PO SCH (09:05)
[2021-08-22] MEDS: BACLOFEN 10 MG TAB PO SCH (09:06)
[2021-08-22] MEDS: amLODIPine BESYLATE 5 MG TAB PO SCH (09:06)
[2021-08-22] MEDS: ASPIRIN 81 MG ECTAB PO SCH (09:06)
[2021-08-22] MEDS: carvediloL 12.5 MG TAB PO SCH ×2 (09:07→20:24)
[2021-08-22] MEDS: MAGNESIUM OXIDE 400 MG TAB PO SCH ×2 (09:08→20:27)
[2021-08-22] MEDS: INSULIN DETEMIR FLEXPEN/FLEX TOUCH 100 UNITS/ML 3ML SC SCH ×2 (09:16→20:26)
[2021-08-22 10:05] LABS: BUN Creatinine Ratio 25.9 (10-20); Calcium 8.5 mg/dl (8.5-10.1); Creatinine Clr Calc Pharmacy 138.8 ml/min; Est GFR (African American) 125.8 ml/min; Est GFR (Non-African American) 108.5 ml/min; Potassium 3.7 mmol/L (3.5-5.1)
--- NOTE | 2021-08-22 15:30 | Hospitalist Progress Note ---
Date of Service August 22, 2021 Assessment & Plan (1) Acute alteration in mental status: Plan: (1) Near syncope: Plan: Possible secondary to hypotension Brain MRI: No acute CVA Patient awake and alert x3, answers questions appropriately Decrease lisinopril from 10 mg to 5 mg, amlodipine from 5 mg to 2.5 mg BP stable so far no note of recurrence (2) History of CVA (cerebrovascular accident): Plan: Continue aspirin, Plavix, Lipitor (3) CAD (coronary artery disease): Plan: No complaints of chest pain. Troponin has been negative. Continue with aspirin Plavix (4) Type 2 diabetes mellitus: Plan: We will continue long-acting 14 units in the morning and 8 units in the evening. A1c 6.7 (5) HTN (hypertension): Plan: Management per #1 (6) Paroxysmal atrial fibrillation: Plan: Currently is In sinus. INR 1.8 continue usual coumadin 7mg daily except Mond 2.5mg (7) pressure ulcer bilateral feet Plan: X-ray of the right foot reveals possible osteomyelitis of the heel MRI foot cannot be accomplised today as patient unable to hold his leg/foot st ill will try again tomorrow no clinical signs of foot infection on exam plan of care discussed with patient and his in detail and at length all questions answered they are understanding, agreeable, comfortable with the plan of care Admission and Anticipated Discharge Date Admission Date: August 20, 2021 Subjective ff up for near syncope, etc seen resting in bed, comfortable alert, oriented x 2, answers questions appropriately states he feels fine overall denies dizziness, confusion, chest pain, palpitations no leg or foot pain, no fever/chills appetite is good no other symptoms Review of Systems Review of Systems: all noted and negative except for above Physical Exam Physical Exam: General- oriented x 2, not in distress, speaks in sentences with no effort or accessory muscle use Eyes- anicteric Neck- no JVD Lungs- clear breath sounds bilaterally, no rales/wheezes Heart- normal rate, regular rhythm; no murmurs Abdomen- normal bowel sounds, nondistended, soft, nontender Extremities- no pretibial edema, no calf tenderness R heel: no open ulcer noted, no erythema/warmth/tenderness of the foot L heel: " no erythema/warmth/tenderness of the toes Neuro- alert, oriented x 2; R sided weakness; no new gross focal neurologic deficits Skin- warm & dry Results & Data Results & Data ([facility]) Vital Signs (Past 12 Hours) Vital Signs Temp Pulse Resp BP Pulse Ox 08/22/21 11:37 36.8 C 72 16 131/81 97 08/22/21 07:43 36.7 C 79 17 147/87 H 96 all noted and reviewed including below
[2021-08-22] MEDS: WARFARIN SOD 5 MG TAB PO SCH (16:45)
[2021-08-22] MEDS: WARFARIN SOD 2 MG TAB PO SCH (16:46)
[2021-08-22] MEDS: ATORVASTATIN 40 MG TAB PO SCH (20:24)
[2021-08-22] MEDS: MENTHOL-ZINC OXIDE 360 APPLN/120 GM TUBE EXT SCH (20:27)
[2021-08-22] MEDS: TAMSULOSIN HCL 0.4 MG CAP PO SCH (20:28)
[2021-08-23 08:13] LABS: INR 1.3 (0.9-1.1); Prothrombin Time 14.1 Seconds (9.0-12.0)
[2021-08-23 08:24] LABS: BUN Creatinine Ratio 26.3 (10-20); Calcium 8.3 mg/dl (8.5-10.1); Creatinine Clr Calc Pharmacy 141.3 ml/min; Est GFR (African American) 126.7 ml/min; Est GFR (Non-African American) 109.3 ml/min; Potassium 3.9 mmol/L (3.5-5.1)
[2021-08-23] MEDS: INSULIN ASPART PER UNIT SC SCH ×4 (08:29→21:05)
[2021-08-23] MEDS: INSULIN DETEMIR FLEXPEN/FLEX TOUCH 100 UNITS/ML 3ML SC SCH ×2 (08:30→21:12)
[2021-08-23] MEDS: carvediloL 12.5 MG TAB PO SCH ×2 (08:31→21:30)
[2021-08-23] MEDS: amLODIPine BESYLATE 5 MG TAB PO SCH (08:31)
[2021-08-23] MEDS: MAGNESIUM OXIDE 400 MG TAB PO SCH ×2 (08:32→21:18)
[2021-08-23] MEDS: CLOPIDOGREL BISULFATE 75 MG TAB PO SCH (08:32)
[2021-08-23] MEDS: ASPIRIN 81 MG ECTAB PO SCH (08:32)
[2021-08-23] MEDS: lisinopril 5 MG TAB PO SCH (08:32)
[2021-08-23] MEDS: BACLOFEN 10 MG TAB PO SCH (08:33)
[2021-08-23] MEDS: MENTHOL-ZINC OXIDE 360 APPLN/120 GM TUBE EXT SCH ×2 (08:35→21:31)
[2021-08-23] MEDS ORDERED: GADOBUTROL 30ML VIAL IV ONE (10:52)
[2021-08-23] MEDS ORDERED: MAGNESIUM OXIDE 400 MG TAB PO SCH (11:15)
--- NOTE | 2021-08-23 17:07 | Hospitalist Progress Note ---
Date of Service August 23, 2021 Assessment & Plan (1) Acute alteration in mental status: Plan: (1) Near syncope: Plan: Possible secondary to hypotension Brain MRI: No acute CVA Patient awake and alert x3, answers questions appropriately Decrease lisinopril from 10 mg to 5 mg, amlodipine from 5 mg to 2.5 mg Blood pressure around 150s no note of recurrence of near syncope Monitor closely May need to increase amlodipine back to 5 mg Monitor closely (2) History of CVA (cerebrovascular accident): Plan: Continue aspirin, Plavix, Lipitor (3) CAD (coronary artery disease): Plan: No complaints of chest pain. Troponin has been negative. Continue with aspirin Plavix (4) Type 2 diabetes mellitus: Plan: We will continue long-acting 14 units in the morning and 8 units in the evening. A1c 6.7 (5) HTN (hypertension): Plan: Management per #1 (6) Paroxysmal atrial fibrillation: Plan: Currently is In sinus. INR 1.3 Additional 2 mg of Coumadin today continue usual coumadin 7mg daily except Mond 2.5mg Monitor INR closely (7) pressure ulcer bilateral feet Plan: X-ray of the right foot reveals possible osteomyelitis of the heel MRI of the right foot: Pending no clinical signs of foot infection on exam plan of care discussed with patient and his in detail and at length all questions answered they are understanding, agreeable, comfortable with the plan of care Admission and Anticipated Discharge Date Admission Date: August 20, 2021 Subjective Follow-up for new syncope, hypertension, etc. Seen sitting up in bed, comfortable, awake and alert, answers most questions appropriately States he feels fine overall No headache, dizziness, chest pain, palpitations, nausea or vomiting Denies any pain in the legs or feet No other symptom Review of Systems Review of Systems: all noted and negative except for above Physical Exam Physical Exam: General- oriented x 2, not in distress, speaks in sentences with no effort or accessory muscle use Eyes- anicteric Neck- no JVD Lungs- clear breath sounds bilaterally, no crackles, no wheezing Heart- normal rate, regular rhythm; no murmurs Abdomen- normal bowel sounds, nondistended, soft, nontender Extremities- no pretibial edema, no calf tenderness Neuro- alert, oriented x 3; right hemiplegia, no new gross focal neurologic deficits Skin- warm & dry Results & Data Results & Data ([facility]) Vital Signs (Past 12 Hours) Vital Signs Temp Pulse Resp BP Pulse Ox 08/23/21 15:38 36.8 C 74 20 149/87 H 95 08/23/21 12:30 151/76 H 08/23/21 11:44 36.9 C 75 14 195/73 H 95 08/23/21 07:24 36.5 C 76 14 152/80 H 95 all noted and reviewed including below
[2021-08-23] MEDS ORDERED: WARFARIN SOD 2 MG TAB PO ONE (17:15)
[2021-08-23] MEDS: WARFARIN SOD 5 MG TAB PO SCH (17:28)
[2021-08-23] MEDS: WARFARIN SOD 2 MG TAB PO SCH (17:29)
--- NOTE | 2021-08-23 17:32 | Magnetic Resonance Report ---
MRI OF THE RIGHT ANKLE COMBO CLINICAL HISTORY: Right heel infection. Clinical concern for calcaneal osteomyelitis. COMPARISON STUDY: Radiographs of the right foot dated 08/20/2021. TECHNIQUE: MRI of the right ankle is performed utilizing various T1 and T2-weighted sequences in the axial, sagittal, and coronal planes. Contrast-enhanced sequences are acquired following the IV admini stration of 8 cc of Gadavist. The examination is severely degraded by motion artifact. FINDINGS: There is no MRI evidence of osteomyelitis involving the calcaneus as clinically queried. Th ere is no MRI evidence of fracture involving the ankle or hindfoot. The ankle mortise is intact. No o steochondral defect is seen in the talar dome. There is no joint effusion. There are dorsal and plant ar calcaneal enthesophytes. There is tendinopathy with evidence of paratenonitis of the Achilles tend on. The fibers of the tendon are intact. Nonspecific fluid is noted in the retrocalcaneal bursa. The anterior and posterior tendons are intact. There is a split tear of the peroneus brevis tendon with a ssociated tenosynovitis. Visualized portions of the plantar fascia appear intact. There is metallic s usceptibility artifact from metallic foreign body along the plantar aspect of the foot. Mild soft tis sarabjit edema overlies the heel. No organized/drainable fluid collection is identified. The anterior tibi ofibular and talofibular ligaments appear intact. The deltoid ligament is intact as visualized. IMPRESSION: 1. Significantly motion degraded examination. 2. There is no MRI evidence of calcaneal osteomyelitis as clinically queried. 3. Mild soft tissue edema is present along the plantar aspect of the heel. Correlate clinically for e vidence of cellulitis. 4. There is a split tear of the peroneus brevis tendon with associated tenosynovitis. 5. There is tendinopathy and paratenonitis of the Achilles tendon. 6. A metallic foreign body is present in the plantar soft tissues. 7. No organized fluid collection is seen to indicate abscess. Dictated: 08/23/2021 11:12 AM Transcribed: 08/23/2021 11:33 AM Leslee [id number] SUSAN_Bentley Electronically signed by: Donny Fernando M.D. 08/23/2021 5:31 PM
[2021-08-23] MEDS: ATORVASTATIN 40 MG TAB PO SCH (21:13)
[2021-08-23] MEDS: TAMSULOSIN HCL 0.4 MG CAP PO SCH (21:30)
[2021-08-23] MEDS: HEPARIN SOD 5,000 UNIT/0.5 ML VIAL SQ SCH (21:32)
[2021-08-24] MEDS: HEPARIN SOD 5,000 UNIT/0.5 ML VIAL SQ SCH ×3 (05:48→20:56)
[2021-08-24 06:39] LABS: INR 1.5 (0.9-1.1); Prothrombin Time 15.9 Seconds (9.0-12.0)
--- NOTE | 2021-08-24 07:15 | Communication Note ---
Date of Service: August 24, 2021 MRI of ankle completed yesterday. Reviewed with Dr. Hamilton. No evidence of abscess or osteomyelitis. No surgical intervention indicated at this time. Plea se call with any questions. Thank you for this consult.
[2021-08-24] MEDS: ASPIRIN 81 MG ECTAB PO SCH (08:15)
[2021-08-24] MEDS: carvediloL 12.5 MG TAB PO SCH ×2 (08:15→20:56)
[2021-08-24] MEDS: amLODIPine BESYLATE 5 MG TAB PO SCH ×2 (08:15→09:54)
[2021-08-24] MEDS: lisinopril 5 MG TAB PO SCH (08:16)
[2021-08-24] MEDS: BACLOFEN 10 MG TAB PO SCH (08:16)
[2021-08-24] MEDS: CLOPIDOGREL BISULFATE 75 MG TAB PO SCH (08:16)
[2021-08-24] MEDS: MAGNESIUM OXIDE 400 MG TAB PO SCH ×2 (08:17→20:56)
[2021-08-24] MEDS: INSULIN ASPART PER UNIT SC SCH ×4 (08:18→20:58)
[2021-08-24] MEDS: INSULIN DETEMIR FLEXPEN/FLEX TOUCH 100 UNITS/ML 3ML SC SCH ×2 (08:20→20:57)
[2021-08-24] MEDS: MENTHOL-ZINC OXIDE 360 APPLN/120 GM TUBE EXT SCH (08:22)
[2021-08-24] MEDS ORDERED: MAGNESIUM SULFATE / D5W 1 GM/100 ML BAG IV ONE (09:00)
[2021-08-24] MEDS ORDERED: WARFARIN SOD 2.5 MG TAB PO SCH (16:00)
[2021-08-24] MEDS ORDERED: WARFARIN SOD 5 MG TAB PO ONE (16:30)
[2021-08-24] MEDS ORDERED: WARFARIN SOD 2 MG TAB PO ONE (16:30)
--- NOTE | 2021-08-24 16:35 | Hospitalist Progress Note ---
Date of Service August 24, 2021 Assessment & Plan (1) Acute alteration in mental status: Plan: (1) Syncope: Plan: Possible secondary to hypotension as per , patient noted to have had unresponsive episode ~2 sec prompting call to 911 Brain MRI: No acute CVA No recurrence during admission Patient awake and alert x3, answers questions appropriately Decreased lisinopril from 10 mg to 5 mg, amlodipine from 5 mg to 2.5 mg--> increased to 5mg again as BP trending up to systolic 170s Monitor closely (2) History of CVA (cerebrovascular accident): Plan: Continue aspirin, Plavix, Lipitor (3) CAD (coronary artery disease): Plan: No complaints of chest pain. Troponin has been negative. Continue with aspirin Plavix (4) Type 2 diabetes mellitus: Plan: We will continue long-acting 14 units in the morning and 8 units in the evening. A1c 6.7 (5) HTN (hypertension): Plan: Management per #1 (6) Paroxysmal atrial fibrillation: Plan: Currently is In sinus. INR 1.5 coumadin 7mg today then continue usual coumadin 7mg daily except Tuesday 2.5mg Monitor INR closely (7) pressure ulcer bilateral feet Plan: X-ray of the right foot reveals possible osteomyelitis of the heel MRI of the right foot: negative for osteomyelitis no clinical signs of foot infection on exam plan of care discussed with patient and his in detail and at length all questions answered they are understanding, agreeable, comfortable with the plan of care Admission and Anticipated Discharge Date Admission Date: August 20, 2021 Subjective ff up for syncope, hypotension, etc seen resting in bed, comfortable alert, answers questions appropriately no chest pain, dyspnea, palpitations, dizziness no pain on the arms, legs or feet no other symptoms Review of Systems Review of Systems: all noted and negative except for above Physical Exam Physical Exam: General- oriented x 2, not in distress, speaks in sentences with no effort or accessory muscle use Eyes- anicteric Neck- no JVD Lungs- clear breath sounds, no crackles or wheezing bilaterallly Heart- normal rate, regular rhythm; no murmurs Abdomen- normal bowel sounds, nondistended, soft, nontender Extremities- no pretibial edema, no calf tenderness r forearm edema- no warmth/tenderness/erythema no pain on the elbow or wrist Neuro- alert, oriented x 2; no gross focal neurologic deficits Skin- warm & dry Results & Data Results & Data ([facility]) Vital Signs (Past 12 Hours) Vital Signs Temp Pulse Pulse Resp BP Pulse Ox 08/24/21 15:27 36.7 C 68 18 132/71 96 08/24/21 11:25 36.5 C 70 18 122/75 97 08/24/21 09:43 77 08/24/21 07:45 36.6 C 72 18 152/84 H 96 all noted and reviewed including below
[2021-08-24] MEDS: ATORVASTATIN 40 MG TAB PO SCH (20:56)
[2021-08-24] MEDS: TAMSULOSIN HCL 0.4 MG CAP PO SCH (20:59)
[2021-08-25] MEDS: MENTHOL-ZINC OXIDE 360 APPLN/120 GM TUBE EXT SCH ×2 (00:27→08:57)
[2021-08-25] MEDS: HEPARIN SOD 5,000 UNIT/0.5 ML VIAL SQ SCH ×2 (05:27→13:33)
[2021-08-25] MEDS: lisinopril 5 MG TAB PO SCH (08:55)
[2021-08-25] MEDS: CLOPIDOGREL BISULFATE 75 MG TAB PO SCH (08:55)
[2021-08-25] MEDS: ASPIRIN 81 MG ECTAB PO SCH (08:55)
[2021-08-25] MEDS: amLODIPine BESYLATE 5 MG TAB PO SCH (08:55)
[2021-08-25] MEDS: carvediloL 12.5 MG TAB PO SCH (08:55)
[2021-08-25] MEDS: INSULIN DETEMIR FLEXPEN/FLEX TOUCH 100 UNITS/ML 3ML SC SCH (08:55)
[2021-08-25] MEDS: BACLOFEN 10 MG TAB PO SCH (08:56)
[2021-08-25] MEDS: MAGNESIUM OXIDE 400 MG TAB PO SCH (08:57)
[2021-08-25] MEDS: INSULIN ASPART PER UNIT SC SCH ×3 (09:04→17:24)
[2021-08-25 09:22] LABS: INR 1.7 (0.9-1.1); Prothrombin Time 17.6 Seconds (9.0-12.0)
--- NOTE | 2021-08-25 16:57 | Discharge Summary ---
Date of Service August 25, 2021 Admission HPI Per Admitting Provider Patient is a 61-year-old male here in the company of his wif,, With a past medical history of recurrent CVA largely bedbound with more marked right-sided residual weakness, proximal atrial fibrillation, left ankle ulcer right heel ulcer, peripheral arterial disease. BPH. CAD diabetes mellitus hypertension right foot drop presenting after patient's noted the patient to be more lethargic and not as responsive as baseline. Patient was eval by the ER staff no significant finding was noted patient did receive IV fluids after which currently the patient's is saying that the patient is back to his normal s elf. Patient noted to have borderline blood pressure in the ER which has improved by IV hydration.Patient otherwise denies significant chest pain shortness of breath nausea vomiting or diarrhea. Denies any significant dysuria. Otherwise patient himself is currently denying active complaints does not recall the events of earlier today. states that he has done this before when his blood pressure had dropped. As per the patient's medications are being adjusted and lisinopril has been decreased. States she checked her sugar level at home and that was adequate however she did not get the chance to check his blood pressure.As per the patient's patient is unable to take care of his finances needs help at all times. Patient does normally communicate with her if he has any complaints. Otherwise patient is largely confused at baseline. We are called by the ER attending to observe the patient. Admission Exam Per Admitting Provider Constitutional:WD/WN, vitals as above ENMT: external ear and nose normal, oropharynx normal Neck: trachea midline, no thyromegaly Respiratory: normal respiratory effort, lungs clear to auscultationAuscultation:no rhonchi and no wheezes Cardiovascular:RRR, 2 x 6 systolic ejection murmur most prominent in the aortic area, no edema Gastrointestinal (Abdomen):normal bowel sounds, soft, nontender, no hepatosplenomegaly Musculoskeletal:no cyanosis or clubbing, extremities motor strength 5/5 Skin: no rashes, warm and dry Neurologic: PERRL, EOMI, Psychiatric: [id number] at baseline as per . Genitourinary:Not assessed Lymphatic: no cervical or axillary lymphadenopathy Principal Diagnosis Syncope secondary to hypotension Discharge Exam General- oriented x 2, not in distress, speaks in sentences with no effort or accessory muscle use Eyes- anicteric Neck- no JVD Lungs- clear breath sounds, no crackles or wheezing bilaterallly Heart- normal rate, regular rhythm; no murmurs Abdomen- normal bowel sounds, nondistended, soft, nontender Extremities- no pretibial edema, no calf tenderness r forearm edema- no warmth/tenderness/erythema no pain on the elbow or wrist Neuro- alert, oriented x 2; no gross focal neurologic deficits Skin- warm & dry Discharge Data Allergies Allergy/AdvReac Type Severity Reaction Status Date / Time No Known Allergies Allergy Verified 08/20/21 16:14 Consultations 08/20/21 17:42 ED Decision to Admit Stat 08/21/21 10:28 Consult Orthopedic Surgery Routine Ordered Studies 08/20/21 14:15 CT head/brain wo con Stat CLINICAL HISTORY: AMS Technique: Contiguous axial CT images of the head were acquired from the base of the skull to the vertex without intravenous contrast administration. Images were viewed in brain, subdural and bone windows. Automated dose lowering techniques and/or adjustment according to patient size were utilized for this exam. Comparison: Comparison is made to CT head 05/17/2021 Findings: Areas of decreased attenuation are present in the periventricular and subcortical white matter bilaterally consistent with small vessel ischemic disease. Generalized cerebral atrophy with commensurate enlargement of the ventricles, sulci, and cisterns is also present. There is no acute intracranial hemorrhage or evidence of acute territorial infarction. No shift of the midline structures, mass effect, or extra-axial abnormalities are shown. Atherosclerotic calcifications are present in the intracranial segments of the internal carotid arteries. Mucous retention cyst is in the right maxillary sinus. The orbits appear normal. There are no acute fractures of the calvaria or scalp swelling. Impression: No acute intracranial hemorrhage, no evidence of acute territorial infarction or other acute intracranial disease process. ACT 112: Negative or not required by law. 08/20/21 22:18 MR brain wo/w con Urgent 08/23/21 12:00 MR ankle RT wo/w con Routine MR brain wo/w con HISTORY: 61 years-old Male cva? Acute strokelike symptoms COMPARISON: Head CT 08/20/2021, brain MRI 05/17/2021 TECHNIQUE: Multiplanar multisequence MRI of the brain was obtained both with and without the use of 8.5 cc Gadavist FINDINGS: [employer] images demonstrate no gross extracranial abnormality. Study is motion degraded. The midline structures appear unremarkable. Numerous punctate foci of hemosiderin deposition redemonstrated within the cerebral hemispheres an d basal ganglia. Chronic lacunar infarcts of basal ganglia and central sarabjit. No acute intracranial hemorrhage, midline shift, abnormal extra axial collection, hydrocephalus or intracranial mass. Age-related involutional changes. Extensive T2/FLAIR hyperintense foci throughout the white matter redemonstrated suggestive of chronic microvascular ischemic disease. Small area of encephalomalacia sugges blank within the right parietal occipital lobe. There is no restricted diffusion to suggest acute or subacute infarct. There is no abnormal intra-axial or extra-axial enhancement. Cerebral venous sinuses and major arterial flow voids appear patent. Skull, orbits and soft tissues are unremarkable. Polypoid mucosal thickening of the right maxillary sinus. The mastoid air cells are generally clear. IMPRESSION: 1. Motion degraded exam. No acute intracranial abnormality, specifically there is no acute or subacute infarct. 2. Involutional changes with chronic microvascular ischemic disease. 3. No abnormal enhancement. 4. Chronic basal ganglia and pontine lacunar infarcts. ACT 112: Negative or not required by law. MRI OF THE RIGHT ANKLE COMBO CLINICAL HISTORY: Right heel infection. Clinical concern for calcaneal osteomyelitis. COMPARISON STUDY: Radiographs of the right foot dated 08/20/2021. TECHNIQUE: MRI of the right ankle is performed utilizing various T1 and T2-w eighted sequences in the axial, sagittal, and coronal planes. Contrast-enhanced sequences are acquired following the IV administration of 8 cc of Gadavist. The examination is severely degraded by motion artifact. FINDINGS: There is no MRI evidence of osteomyelitis involving the calcaneus as clinically queried. There is no MRI evidence of fracture involving the ankle or hindfoot. The ankle mortise is intact. No osteochondral defect is seen in the talar dome. There is no joint effusion. There are dorsal and plantar calcaneal enthesophytes. There is tendinopathy with evidence of paratenonitis of the Achilles tendon. The fibers of the tendon are intact. Nonspecific fluid is noted in the retrocalcaneal bursa. The anterior and posterior tendons are intact. There is a split tear of the peroneus brevis tendon with associated tenosynovitis. Visualized portions of the plantar fascia appear intact. There is metallic susceptibility artifact from metallic foreign body along the plantar aspect of the foot. Mild soft tissue edema overlies the heel. No organized/drainable fluid collection is identified. The anterior tibiofibular and talofibular ligaments appear intact. The deltoid ligament is intact as visualized. IMPRESSION: 1. Significantly motion degraded examination. 2. There is no MRI evidence of calcaneal osteomyelitis as clinically queried. 3. Mild soft tissue edema is present along the plantar aspect of the heel. Correlate clinically for evidence of cellulitis. 4. There is a split tear of the peroneus brevis tendon with associated tenosynovitis. 5. There is tendinopathy and paratenonitis of the Achilles tendon. 6. A metallic foreign body is present in the plantar soft tissues. 7. No organized fluid collection is seen to indicate abscess. Dictated: 08/23/2021 11:12 AM Transcribed: 08/23/2021 11:33 AM Leslee [id number] SUSAN_Bentley Electronically signed by: Donny Fernando M.D. 08/23/2021 5:31 PM Hospital Course (1) Acute alteration in mental status: (1) Syncope: Plan: Possible secondary to hypotension as per , patient noted to have had unresponsive episode ~2 sec prompting call to 911 Brain MRI: No acute CVA No recurrence during admission Patient awake and alert x3, answers questions appropriately Decreased lisinopril from 10 mg to 5 mg, amlodipine from 5 mg to 2.5 mg--> increased to 5mg again as BP trending up to systolic 170s BP now stable systolic 120s to 140s ff up with PCP in 1 week (2) History of CVA (cerebrovascular accident): Plan: Continue aspirin, Plavix, Lipitor (3) CAD (coronary artery disease): Plan: No complaints of chest pain. Troponin has been negative. Continue with aspirin Plavix (4) Type 2 diabetes mellitus: Plan: continue long-acting 14 units in the morning and 8 units in the evening. A1c 6.7 (5) HTN (hypertension): Plan: Management per #1 (6) Paroxysmal atrial fibrillation: Plan: Currently is In sinus. INR 1.7 continue usual coumadin 7mg daily except Tuesday 2.5mg Monitor INR closely messaged [facility] Pharmacist Elzbieta Meraz (7) pressure ulcer bilateral feet Plan: X-ray of the right foot reveals possible osteomyelitis of the heel MRI of the right foot: negative for osteomyelitis no clinical signs of foot infection on exam (8) Right Forearm Edema no signs of cellulitis elevation, warm compress plan of care discussed with patient and his in detail and at length all questions answered they are understanding, agreeable, comfortable with the plan of care Total Time Total Time Spent Total Time Spent (In Minutes): > 30 minutes Discharge Plan Discharge Items Patient Disposition: Home - Home Health Services Reason For Visit: LETHARGY Discharge Diagnosis: SYNCOPE, SECONDARY TO LOW BLOOD PRESSURE Activity: Resume your previous activity Non-emergency contact: Primary Care Provider Call non-emergency contact if: you have any medication questions, your symptoms worsen, your pain is not controlled, your pain is worsening, your pain is unusual for you, your pain is concerning for you and you have a fever Follow-up/Referrals: Shane Gonzalez MD [Primary Care Provider] - (Date & Time 09/02/2021 11:20 AM Provider Shane Gonzalez MD Department General Internal Medicine [facility] ) Diet: Regular Addtl Attending Provider Instructions: PLEASE REFER TO YOUR NEW MEDICATION LIST AND FOLLOW INSTRUCTIONS CAREFULLY. YOUR MEDICATION CHANGES INCLUDE: LISINOPRIL DECREASED FROM 10MG TO 5MG DAILY PLEASE CALL YOUR PRIMARY CARE PHYSICIAN OR RETURN TO THE ER IF WITH WORSENING OF SYMPTOMS, INCLUDING LETHARGY, DIZZINESS, WEAKNESS, FEVER/CHILLS, INCREASING SWELLING OR REDNESS, WARMTH OF RIGHT ARM. CHECK BOTH FEET INCLUDING HEEL DAILY. REPORT TO PRIMARY CARE PHYSICIAN IF WITH REDNESS, SWELLING, TENDERNESS, ULCER. FOLLOW UP WITH PRIMARY CARE PHYSICIAN OUTLINED ABOVE. Pending Studies at Discharge: Yes Studies:: REPEAT INR THIS WEEK. THE COUMADIN CLINIC WILL BE CALLING YOU SOON FOR ADVICE. Stand-Alone Forms: My [facility] [employer], Smoking Cessation Medications and DC Order Prescriptions: Continued nitroglycerin 0.4 mg tablet, sublingual 0.4 mg sublingual DIRECTED PRN (Reason: Chest Pain) RF: 0 insulin aspart U-100 [Novolog U-100 Insulin aspart] 100 unit/mL solution 10 unit subcut AC RF: 0 tamsulosin 0.4 mg capsule 0.4 mg PO HS RF: 0 metformin 1,000 mg tablet 500 mg PO BID RF: 0 carvedilol 12.5 mg tablet 12.5 mg PO BID Qty: 60 RF: 0 Lantus U-100 Insulin 100 unit/mL solution See Rx Instructions .ROUTE .COMPLEX Qty: 10 RF: 0 clopidogrel [Plavix] 75 mg tablet 75 mg PO QAM Qty: 30 RF: 0 amlodipine [Norvasc] 5 mg tablet 5 mg PO QAM Qty: 30 RF: 0 aspirin 81 mg Tablet,Delayed Release (Dr/Ec) 81 mg PO QAM Qty: 30 RF: 0 baclofen 5 mg tablet 5 mg PO QAM Qty: 30 RF: 0 atorvastatin 80 mg tablet 80 mg PO QPM RF: 0 warfarin 2.5 mg Tablet 2.5 mg PO MO@1600 RF: 0 warfarin 5 mg Tablet 7 mg PO SUTUWETHFRSA@1600 RF: 0 Changed lisinopril 10 mg tablet 5 mg PO DAILY Qty: 0 RF: 0 Discharge Orders: Discharge Order (Routine); Ordered 08/25/21 Ordered By: Rigo Garrett/Other Patient Handouts: Managing Type 2 Diabetes Admission Data Admit Date/Time: 08/20/21 17:53 Attending Provider: Rigo Roa Admit Provider: Aneudy Ascencio Primary Care Provider: Shane Gonzalez Other Providers: Aneudy Ascencio ; Morris Kaur Other Interventions: Discharge Summary Assessment (RN) Last Done: 08/25/21 16:15
[2021-08-25] MEDS: WARFARIN SOD 5 MG TAB PO SCH (17:25)
[2021-08-25] MEDS: WARFARIN SOD 2 MG TAB PO SCH (17:25)
== END 2021-08-25 18:45 | disposition home health service (06) | DRG 314 ==
LOC: ED 14:07 → 2S 17:53 → SUATTDRO 17:53 → 2S 21:42 → 2N 08-24 22:15

== ENCOUNTER 2021-12-17 12:45 | Inpatient (IN) ==
[2021-12-17] MEDS ORDERED: SODIUM CHLORIDE 0.9% 1000ML 1,000 ML IV SCH (13:00)
[2021-12-17] MEDS ORDERED: SODIUM CHLORIDE 0.9% 500 ML IV SCH (13:00)
--- NOTE | 2021-12-17 13:21 | XRay Report ---
SINGLE VIEW CHEST CLINICAL HISTORY: Syncope. FINDINGS: An AP, portable, semierect chest radiograph is compared to study dated 08/20/2021 and correl ated with chest CT dated 11/17/2018. The examination is degraded by portable technique and patient rot ation. The patient is status post midline sternotomy. The heart is enlarged noting atherosclerotic ca lcification of the thoracic aorta. The pulmonary vasculature is noncongested. Chronic interstitial th ickening is similar to previous. The lungs and pleural spaces are clear. No pneumothorax is seen. The skeletal structures are osteopenic. The bony thorax is grossly intact. IMPRESSION: Cardiomegaly with no acute cardiopulmonary abnormality. ACT 112: Negative or not required by law. Electronically signed by: Donny Fernando M.D. 12/17/2021 1:20 PM
[2021-12-17] MEDS ORDERED: HALOPERIDOL LACTATE 5 MG/ML 1 ML VIAL IV STA ×2 (13:23→13:51)
[2021-12-17] MEDS ORDERED: LORazepam 2 MG/1 ML VIAL IV STA (13:23)
[2021-12-17 13:41] LABS: INR 1.3 (0.9-1.1); Prothrombin Time 13.7 Seconds (9.0-12.0)
[2021-12-17 14:13] LABS: Anisocytosis Present; Basophils # (auto) 0.04 K/uL (0-0.2); Basophils % (auto) 0.6 %; Eosinophils % (auto) 1.4 %; Hematocrit (blood only) 32.7 % (40.1-51.0); Hemoglobin 9.3 g/dl (14.0-18.0); Immature Granulocytes # (auto) 0.01 K/uL (0.00-0.02); Immature Granulocytes % (auto) 0.1 %; Lymphocytes # (auto) 1.56 K/uL (1.2-3.4); Lymphocytes % (auto) 21.5 %; Mean Corpuscular Hemoglobin 21.9 pg (25.0-34.0); Mean Corpuscular Hgb Conc 28.4 g/dL (32.0-36.0); Mean Corpuscular Volume 76.9 fL (80.0-100.0); Mean Platelet Volume 11.9 fL (9.4-12.4); Monocytes # (auto) 0.49 K/uL (0.24-0.82); Monocytes % (auto) 6.7 %; Neutrophils # (auto) 5.06 K/uL (1.4-6.5); Neutrophils % (auto) 69.7 %; Ovalocytes 2+; Platelet Count 288 K/uL (130-400); Polychromasia 1+; RDW Coefficient of Variation 18.2 % (11.5-14.5); RDW Standard Deviation 50.3 fL (36.4-46.3); Red Blood Count 4.25 M/uL (4.63-6.08); White Blood Count 7.26 K/ul (4.8-10.8)
[2021-12-17 14:15] LABS: BUN Creatinine Ratio 34.2 (10-20); Bilirubin,Total 0.3 mg/dl (0.2-1.0); Calcium 7.9 mg/dl (8.5-10.1); Creatinine Clr Calc Pharmacy 110.3 ml/min; Est GFR (African American) 114.4 ml/min; Est GFR (Non-African American) 98.7 ml/min; Globulin 3.1 gm/dl (2.5-4.0); Magnesium 1.5 mg/dl (1.7-2.4); Potassium 3.4 mmol/L (3.5-5.1); Total Protein 6.1 gm/dl (6.0-8.3)
[2021-12-17] MEDS ORDERED: MAGNESIUM SULFATE / D5W 1 GM/100 ML BAG IV SCH (14:26)
[2021-12-17] MEDS: MAGNESIUM SULFATE / D5W 1 GM/100 ML BAG IV SCH ×2 (15:00→18:22)
--- NOTE | 2021-12-17 15:21 | History & Physical Report ---
Date of Service December 17, 2021 Assessment & Plan (1) Syncopal episodes: (2) History of CVA (cerebrovascular accident): (3) CAD (coronary artery disease): (4) Aortic valve stenosis: (5) Hypomagnesemia: (6) HTN (hypertension): (7) Type 2 diabetes mellitus: (8) DVT (deep venous thrombosis): Plan: - Admit to tele for observation - Consult cardiology - follows with Dr. Bashir as outpatient - Orthostatic BP ordered - BP has improved s/p 1 U NSS in ther ER. - EKG reviewed as above - Check 2 D echo - concern with loud murmur, hx of aortic stenosis - Per cardiology regarding outpatient holter monitor for unknown arrhythmia? ? paroxysmal afib with hx of multiple CVA? - PT/OT consulted - pt is requesting waffle boots while here - Wound consulted, pressure offloading for decubitus ulcerations - Cont ISS with accuchecks achs, am A1C, hold home sliding scale insulin and metformin while here. May continue lantus. Glucose of 133 at time of syncopal event in the oncology office. - Continue lovenox sub q Q12 H per oncology for RLE DVT known since October 2021 DVT ppx: - teds, scds, lovenox CODE: Full code Dispo: From home, likely to remain in the hospital x 1-2 days History of Present Illness Chief Complaint: syncopal episode Primary Care Provider: Shane Gonzalez MD This is a 61 yo M with PMHx of Right lower extremity DVT found on 10/22/2021, on oral Coumadin, switched to Lovenox twice daily, history of multiple CVA, chronic right hemiparesis, started in 2018 and since then has had 3-4 episodes. MRI done 08/2021 showed multiple lacunar infarcts. It appears that he had strokes while on Coumadin as well as Eliquis. 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 He came to oncology clinic in wheelchair and found to have significantly low blood pressure and had syncopal episode, his blood sugar was in the normal range at 133 at that time. He did take lisinopril 5 mg earlier today around 8 AM. His blood pressure improved to 97/70, O2 sats were stable between 95 to 100% on room air. Was sent to the ER for further evaluation of syncopal event and low blood pressure. reports this occurred while transport was rolling him in wheelchair back to an exam room at the oncology office. Patient does not recall any presyncopal symptoms or complaint of heart palpitations or flutter. His brings up that she [facility]. She denies that he has recently had any type of Holter monitor recording but may have had this sometime in the past. notes his primary lock expert is Dr. Melendrez. In regards to RLE DVT with previous treatment of Coumadin and Eliquis oncology is recommending long-term anticoagulant treatment with Lovenox and has been on lovenox for approximately 1.5 months now. Allergies Allergy/AdvReac Type Severity Reaction Status Date / Time No Known Allergies Allergy Verified 12/17/21 15:21 Home Medications Medication Instructions Recorded Confirmed Type nitroglycerin 0.4 mg sublingual 0.4 mg sublingual DIRECTED PRN 08/09/19 12/17/21 History tablet Chest Pain amlodipine 5 mg tablet (Norvasc) 5 mg PO QAM #30 tabs 09/22/20 12/17/21 Rx aspirin 81 mg tablet,delayed 81 mg PO QAM #30 tabs 09/22/20 12/17/21 Rx release baclofen 5 mg tablet 5 mg PO QAM #30 tabs 09/22/20 12/17/21 Rx carvedilol 12.5 mg tablet 12.5 mg PO BID #60 tabs 09/22/20 12/17/21 Rx clopidogrel 75 mg tablet (Plavix) 75 mg PO QAM #30 tabs 09/22/20 12/17/21 Rx insulin glargine 100 unit/mL See Rx Instructions .Route 09/22/20 12/17/21 Rx subcutaneous solution (Lantus .COMPLEX #10 mL U-100 Insulin) insulin aspart U-100 100 unit/mL 10 unit subcut AC 01/11/21 12/17/21 History subcutaneous solution (Novolog U-100 Insulin aspart) tamsulosin 0.4 mg capsule 0.4 mg PO HS 01/11/21 12/17/21 History atorvastatin 80 mg tablet 80 mg PO QPM 05/17/21 12/17/21 History lisinopril 10 mg tablet 5 mg PO DAILY #0 tabs 08/25/21 12/17/21 Rx enoxaparin 80 mg/0.8 mL 0.8 ml subcut [facility] 12/17/21 12/17/21 History subcutaneous syringe metformin 500 mg tablet 500 tab PO BID 12/17/21 12/17/21 History 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" Aortic valve stenosis BPH with obstruction/lower urinary tract symptoms CAD (coronary artery disease) Carotid stenosis Diabetic peripheral neuropathy associated with type 2 diabetes mellitus Dyslipidemia Hemiplegia affecting right dominant side History of CVA (cerebrovascular accident) History of pancreatitis HTN (hypertension) Hypomagnesemia Monoplegia affecting right dominant side Obesity Osteomyelitis of great toe of right foot Proliferative diabetic retinopathy Retinal edema Right foot drop Status post cerebrovascular accident Status post myocardial infarction Superior mesenteric artery stenosis Type 2 diabetes mellitus Surgical History Hx of vitrectomy S/P angioplasty with stent S/P CABG x 3 S/P PTCA (percutaneous transluminal coronary angioplasty) Family History Father Heart disease Social History Smoking Status: Former smoker Tobacco Type: Cigarettes Second Hand Exposure: No; Do You Dip or Chew Tobacco: No; Tobacco Cessation Education Requested by Patient: No Hx Alcohol Use: No Hx Substance Use: No Preferred Language: Filipino Communication Ability: Impaired Visual Impairment: No Limitations Hearing Ability: Normal 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 Chair Required: No Beliefs That Will Affect Care: None marital status: Current Living Situation: Spouse Current Living Situation Comment: Lives with in a split level home but he is in basement current occupational status: disabled Other Information That Helps Us Care for You: No Feels Safe at Home: Yes Safety Concerns: Feels Safe At This Time Assistive Devices: Glasses and Wheelchair Review of Systems Review of Systems: Constitutional: No fever, sweats or chills Eyes: No diplopia, no worsening or blurred vision ENT: normal hearing, no trouble swallowing - does not do well with straws however (aspiration risk) Respiratory: No cough, sputum, dyspnea at rest or on exertion Cardiovascular: No chest pain, tightness or palpitations Abdomen: No pain, nausea, vomiting, diarrhea or constipation Musculoskeletal: No joint pain, calf pain, swelling Neurologic: R sided paraplegia s/p multiple strokes, no numbness/tingling, waist band in place which uses to assist with positioning Psychiatric: No anxiety or depression Skin: No rash or itch Physical Exam Physical Exam: General: awake, alert, no apparent distress, + right sided paraplegia, slurred speech is chronic s/p multiple strokes Head: Normocephalic, atraumatic ENT: PERRL, EOMI, no pharyngeal exudate, +mucous membranes dry Chest: Clear to auscultation, on room air, no adventitious breath sounds Cardiac: Regular rate and rhythm, + loud systolic ejection murmur, no JVD, normal peripheral pulses, good capillary refill Abdominal: NABS x 4 quadrants, soft, nondistended, nontender to palpation, no rebound or guarding Buttocks: decubitus ulceration x 3, open, will require dressings and pressure offloading, pt has soiled depends on, incontinent at baseline. Extremities: Normal inspection, no peripheral edema or erythema, calfs nontender to palpation Psych: Normal mood and affect Neuro: AAO to self and place, strength intact bilaterally and rated 3/5 in LLE and LUE, hemiplegia on R side, speech slurred chronically Results & Data Results & Data ([facility]) Vital Signs (Past 12 Hours) Vital Signs Pulse Pulse Resp BP BP Pulse Ox O2 Del Method 12/17/21 14:12 77 18 129/84 98 Room Air 12/17/21 14:12 Room Air 12/17/21 13:23 98 Room Air 12/17/21 13:14 79 18 101/52 L 98 Room Air Laboratory Results 12/17/21 12/17/21 12/17/21 13:08 13:06 13:06 WBC RBC Hgb Hct MCV MCH MCHC RDW Std Deviation RDW Coeff of Caroline Plt Count MPV Immature Gran % (Auto) Neut % (Auto) Lymph % (Auto) [place] % (Auto) Eos % (Auto) Baso % (Auto) Neut # (Auto) Lymph # (Auto) [place] # (Auto) Eos # (Auto) Baso # (Auto) Immature Gran # (Auto) Polychromasia Anisocytosis Ovalocytes PT 13.7 H INR 1.3 H Sodium 147 H Potassium 3.4 L Chloride 115 H Carbon Dioxide 24 Anion Gap 8 BUN 25 H Creatinine 0.73 Est Cr Clr Drug Dosing 110.3 Est GFR ( Amer) 114.4 Est GFR (Non-Af Amer) 98.7 BUN/Creatinine Ratio 34.2 H Glucose 143 H Calcium 7.9 L Magnesium 1.5 L Total Bilirubin 0.3 AST 7 L ALT 5 L Alkaline Phosphatase 43 Total Protein 6.1 Albumin 3.0 L Globulin 3.1 Albumin/Globulin Ratio 1.0 SARS-CoV-2, RNA, NAAT NEGATIVE 12/17/21 13:06 WBC 7.26 RBC 4.25 L Hgb 9.3 L Hct 32.7 L MCV 76.9 L MCH 21.9 L MCHC 28.4 L RDW Std Deviation 50.3 H RDW Coeff of Caroline 18.2 H Plt Count 288 MPV 11.9 Immature Gran % (Auto) 0.1 Neut % (Auto) 69.7 Lymph % (Auto) 21.5 [place] % (Auto) 6.7 Eos % (Auto) 1.4 Baso % (Auto) 0.6 Neut # (Auto) 5.06 Lymph # (Auto) 1.56 [place] # (Auto) 0.49 Eos # (Auto) 0.10 Baso # (Auto) 0.04 Immature Gran # (Auto) 0.01 Polychromasia 1+ Anisocytosis Present Ovalocytes 2+ PT INR Sodium Potassium Chloride Carbon Dioxide Anion Gap BUN Creatinine Est Cr Clr Drug Dosing Est GFR ( Amer) Est GFR (Non-Af Amer) BUN/Creatinine Ratio Glucose Calcium Magnesium Total Bilirubin AST ALT Alkaline Phosphatase Total Protein Albumin Globulin Albumin/Globulin Ratio SARS-CoV-2, RNA, NAAT Diagnostic Findings Chest X-Ray 12/17/21 12:56 SINGLE VIEW CHEST CLINICAL HISTORY: Syncope. FINDINGS: An AP, portable, semierect chest radiograph is compared to study dated 08/20/2021 and correlated with chest CT dated 11/17/2018. The examination is degraded by portable technique and patient rotation. The patient is status post midline sternotomy. The heart is enlarged noting atherosclerotic calcification of the thoracic aorta. The pulmonary vasculature is noncongested. Chronic interstitial thickening is similar to previous. The lungs and pleural spaces are clear. No pneumothorax is seen. The skeletal structures are osteopenic. The bony thorax is grossly intact. IMPRESSION: Cardiomegaly with no acute cardiopulmonary abnormality. ACT 112: Negative or not required by law. Electronically signed by: Donny Fernando M.D. 12/17/2021 1:20 PM ECG Additional Comments: Normal sinus rhythm Possible Left atrial enlargement Incomplete right bundle branch block Inferior infarct (cited on or before 13-OCT-2006) Abnormal ECG When compared with ECG of 20-AUG-2021 14:19, ST no longer elevated in Anterior leads Nonspecific T wave abnormality now evident in Anterior leads Code Status & VTE Plan Code Status Full code Supervising Physician Co-Signing Physician Notes Patient was seen and examined independently at bedside. Chart reviewed. Case discussed with Izabella GLEASON and agree with the documentation above. In summary, this is a 61 year old male with h/o multiple CVA with right sided hemiparesis, h/o DVT and failed coumadin/eliquis and now on lovenox bid who presented to ED today for evaluation of syncopal episode. He had syncopal episode while at oncology clinic and his BP was found to be low. History taken from at bedside. Syncope for few seconds. No seizure like activities. BG normal and Saturation fine at that time. In ED, afebrile, hemodynamically stable. Labs with mild hypernatremia, hypokalemia, hypomagnesemia, mild microcytic anemia (Hb 9.3 with baseline of 11- 12, denies any bleeding), TSH normal, covid negative. EKG reviewed. Syncope likely from low BP, possible dehydration with hypernatremia as well as due to BP meds. Will start on gentle D5W for hypernatremia- encourage more free water intake; replete electrolytes mag and potassium, hold norvasc (if BP is still low, hold lisinopril too), check orthostatics, monitor on tele. Repeat labs in am. Follow up on echo. PT eval. Check iron studies and B12 level for anemia. Rest as per the note above.
--- NOTE | 2021-12-17 15:23 | Electrocardiogram Report ---
Test Reason : Blood Pressure : / mmHG Vent. Rate : 082 BPM Atrial Rate : 082 BPM P-R Int : 130 ms QRS Dur : 100 ms QT Int : 376 ms P-R-T Axes : 067 047 120 degrees QTc Int : 439 ms Normal sinus rhythm Possible Left atrial enlargement Incomplete right bundle branch block Inferior infarct (cited on or before 13-OCT-2006) Abnormal ECG When compared with ECG of 20-AUG-2021 14:19, ST no longer elevated in Anterior leads Nonspecific T wave abnormality now evident in Anterior leads Confirmed by Tucker Pollard ([id number]) on 12/17/2021 3:23:04 PM Referred By: REFERRED SELF Confirmed By:Bryon Pollard
[2021-12-17] MEDS ORDERED: GLUCAGON FOR INJ 1 MG VIAL SQ PRN (16:17)
[2021-12-17] MEDS ORDERED: CARBOHYDRATES FOR HYPOGLYCEMIA PO PRN (16:17)
[2021-12-17] MEDS ORDERED: GLUCOSE 40% GEL 15 GM TUBE PO PRN (16:17)
[2021-12-17] MEDS ORDERED: GLUCOSE 10 TAB/TUBE PO PRN (16:17)
[2021-12-17] MEDS ORDERED: DEXTROSE 50% 50 ML SYRINGE IV PRN (16:17)
[2021-12-17 17:00] LABS: Troponin I High Sensitivity 29.9 pg/ml (0-20)
[2021-12-17] MEDS ORDERED: ACETAMINOPHEN 325 MG TAB PO PRN (17:23)
[2021-12-17] MEDS ORDERED: ONDANSETRON INJ 2 MG/ML 2 ML VIAL IV PRN (17:23)
[2021-12-17] MEDS: LANTUS PER UNIT CHARGE SQ SCH ×2 (18:07→21:41)
[2021-12-17] MEDS: INSULIN ASPART PER UNIT SC SCH ×2 (18:08→21:42)
[2021-12-17] MEDS ORDERED: MAGNESIUM SULFATE / D5W 1 GM/100 ML BAG IV ONE (19:30)
[2021-12-17] MEDS ORDERED: POTASSIUM CHLORIDE PWD 20 MEQ PACK PO ONE (20:45)
[2021-12-17] MEDS: DEXTROSE 5% 1,000 ML IV SCH (21:08)
[2021-12-17] MEDS: ENOXAPARIN 80 MG/0.8 ML SYR SQ SCH (21:38)
[2021-12-17] MEDS: TAMSULOSIN HCL 0.4 MG CAP PO SCH (21:38)
[2021-12-17] MEDS: ATORVASTATIN 40 MG TAB PO SCH (21:38)
[2021-12-17] MEDS: carvediloL 12.5 MG TAB PO SCH (21:39)
[2021-12-18 02:43] LABS: Appearance Urine Clear (Clear); Bacteria Urine Automated Negative (Negative); Bilirubin Urine Negative (Negative); Blood Urine Negative (Negative); Color Urine Yellow; Epithelial Cell Urine Auto 20-30 /lpf (0-5); Glucose Urine UA Negative (Negative); Ketones Urine Negative (Negative); Leukocyte Esterase Urine Trace (Negative); Nitrite Urine Negative (Negative); Protein Urine Trace (Negative); RBC Urine Automated 0-4 /hpf (0-4); Specific Gravity Urine 1.029 (1.000-1.030); Urobilinogen Urine Negative (Negative)
--- NOTE | 2021-12-18 07:40 | Emergency Department Note ---
Impression & Plan Syncope, Hypomagnesemia, History of CVA (cerebrovascular accident), Aortic stenosis, Acute dehydration ED Provider Note CHIEF COMPLAINT: Syncope HISTORY OF PRESENT ILLNESS: This 61-year-old male patient presents to the emergency department with complaints of a syncopal episode. The patient has a history of stroke, DVT coronary artery disease, aortic stenosis and diabetes. He was at the hematology office today for his first consultation regarding anticoagulation. His states he was on Coumadin and developed a DVT, was switched to Lovenox. In the office today he had a syncopal episode and was sent to the emergency department for evaluation. His is not certain that he passed out completely however was in a wheelchair and "went out." Physicians at the [facility] office checked his blood pressure and glucose which were apparently reasonable by report. The ambulance was called and the patient was transported to our facility. states his EKG is always "abnormal." Per the the patient has been eating and drinking normally. He had a snack prior to leaving for the appointment today. She states she is roman catholic about checking his blood glucose. The patient is somewhat annoyed that he is here today but denies any pain hit him head and chest. He has not had any recent vomiting or diarrhea. denies any falls or head injuries. He has not had any d ifficulty with urination or bowel movements. states he follows with Dr. Huff of cardiology, Dr. Gonzalez is his PCP. REVIEW OF SYSTEMS: A review of systems was performed with positives and pertinent negatives listed in the history of present illness. 10 systems were reviewed and are otherwise negative. ALLERGIES: see below MEDICATIONS: see below PMH: see below SOCIAL HISTORY: see below DDx:Vasovagal event, dehydration, infection, hypoglycemia, electrolyte abnormalities, cardiac sources, intracerebral event, pulmonary embolism, seizure, toxicologic, neurologic, as well as other pathologies. PHYSICAL EXAM: Vital signs reviewed. Noted to be slightly hypertensive General: Chronically ill appearing 61-year-old male, in no significant distress. Left belt in place. HEENT: No scleral icterus, PERRLA, neck supple. Atraumatic. Dry mucous membranes. Cardiovascular: Regular rate and rhythm, systolic ejection murmur Pulmonary: Clear to auscultation bilaterally, normal work of breathing. Abdomen: Soft, nontender, nondistended, positive bowel sounds. Musculoskeletal: Atraumatic, no peripheral edema. Right lower extremity brace on the ankle. Neurologic: Patient somnolent but arousable and answers simple questions appropriately, expressive aphasia, weakness/right-sided hemiplegia noted. Skin: Warm, dry, no rash EMERGENCY DEPARTMENT COURSE/MDM: This patient was evaluated and appeared to be in no significant distress. Patient was somnolent but easily arousable, answered questions appropriately. IV fluids were initiated. The patient is noted to be hypomagnesemic at 1.5. This was repleted. EKG reveals nonspecific ST change in the anterior lateral leads which is consistent with previous EKGs. Patient's laboratory work reveals a slightly elevated high-sensitivity troponin. Patient has no chest pain and a baseline abnormal EKG which is unchanged. I s uspect the patient's near syncopal/syncopal event is related to a dehydrated state with aortic stenosis and position changes related to his severe disability and lift belt/wheelchairs and blood pressure medication. Patient did require electrolyte repletion. Given his severity of illness and his complicated situation, it is felt best to have the patient observed in the hospital overnight. I did discuss the situation with the patient and his at the bedside. The hospitalist service has been consulted for further management. MONITORING: An order for cardiac monitoring was placed and the patient is noted to be in a sinus rhythm at 82 beats per minute. RADIOLOGY: See below EKG: Normal sinus rhythm 82 bpm with left atrial enlargement, incomplete right bundle branch block, previous inferior infarct. QTC is 439. No PVC, no PAC. Q waves noted in the inferior leads. When compared to previous dated August 20, 2021. ST segments are no longer elevated in the anterior leads. Nonspecific T wave abnormality is now evident in the anterior leads. DISPOSITION: Admission 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" Aortic valve stenosis BPH with obstruction/lower urinary tract symptoms CAD (coronary artery disease) Carotid stenosis Diabetic peripheral neuropathy associated with type 2 diabetes mellitus Dyslipidemia Hemiplegia affecting right dominant side History of CVA (cerebrovascular accident) History of pancreatitis HTN (hypertension) Hypomagnesemia Monoplegia affecting right dominant side Obesity Osteomyelitis of great toe of right foot Proliferative diabetic retinopathy Retinal edema Right foot drop Status post cerebrovascular accident Status post myocardial infarction Superior mesenteric artery stenosis Type 2 diabetes mellitus Surgical History Hx of vitrectomy S/P angioplasty with stent S/P CABG x 3 S/P PTCA (percutaneous transluminal coronary angioplasty) Family History Father Heart disease Social History Smoking Status: Former smoker Tobacco Type: Cigarettes Second Hand Exposure: No; Do You Dip or Chew Tobacco: No; Tobacco Cessation Education Requested by Patient: No Hx Alcohol Use: No Hx Substance Use: No Preferred Language: Sami Communication Ability: Impaired Visual Impairment: No Limitations Hearing Ability: Normal 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 Required: No Beliefs That Will Affect Care: None marital status: Current Living Situation: Spouse Current Living Situation Comment: Lives with in a split level home but he is in basement current occupational status: disabled Other Information That Helps Us Care for You: No Feels Safe at Home: Yes Safety Concerns: Feels Safe At This Time Assistive Devices: Glasses and Wheelchair Allergies Allergies Allergy/AdvReac Type Severity Reaction Status Date / Time No Known Allergies Allergy Verified 12/17/21 15:21 Home Meds Home Medications Medication Instructions Recorded Confirmed nitroglycerin 0.4 mg sublingual 0.4 mg sublingual DIRECTED PRN 08/09/19 12/17/21 tablet Chest Pain insulin aspart U-100 100 unit/mL 10 unit subcut AC 01/11/21 12/17/21 subcutaneous solution (Novolog U-100 Insulin aspart) tamsulosin 0.4 mg capsule 0.4 mg PO HS 01/11/21 12/17/21 atorvastatin 80 mg tablet 80 mg PO QPM 05/17/21 12/17/21 enoxaparin 80 mg/0.8 mL 0.8 ml subcut AMHS 12/17/21 12/17/21 subcutaneous syringe metformin 500 mg tablet 500 tab PO BID 12/17/21 12/17/21 Previous Rx's Medication Instructions Recorded amlodipine 5 mg tablet (Norvasc) 5 mg PO QAM #30 tabs 09/22/20 aspirin 81 mg tablet,delayed 81 mg PO QAM #30 tabs 09/22/20 release baclofen 5 mg tablet 5 mg PO QAM #30 tabs 09/22/20 carvedilol 12.5 mg tablet 12.5 mg PO BID #60 tabs 09/22/20 clopidogrel 75 mg tablet (Plavix) 75 mg PO QAM #30 tabs 09/22/20 insulin glargine 100 unit/mL See Rx Instructions .Route 09/22/20 subcutaneous solution (Lantus .COMPLEX #10 mL U-100 Insulin) lisinopril 10 mg tablet 5 mg PO DAILY #0 tabs 08/25/21 Results & Data (ED) Vital Signs Vital Signs - 24 hr 12/17/21 13:14 12/17/21 13:23 12/17/21 14:12 Pulse Rate 79 Pulse Rate [Right Finger] Respiratory Rate 18 Blood Pressure 101/52 L Blood Pressure [Right Arm] Blood Pressure Mean 68 Blood Pressure Mean [Right Arm] Pulse Oximetry 98 98 Oxygen Delivery Method Room Air Room Air Room Air Sepsis Recent Fever Within 48 Hours No Sepsis New/Unexplained Change in Mental Status N/A Sepsis Action Taken by Nursing No Action Required Pulse Oximetry Post Tiitration 98 12/17/21 14:12 Pulse Rate Pulse Rate [Right Finger] 77 Respiratory Rate 18 Blood Pressure Blood Pressure [Right Arm] 129/84 Blood Pressure Mean Blood Pressure Mean [Right Arm] 99 Pulse Oximetry 98 Oxygen Delivery Method Room Air Sepsis Recent Fever Within 48 Hours Sepsis New/Unexplained Change in Mental Status Sepsis Action Taken by Nursing Pulse Oximetry Post Tiitration Home Medications Current Medication List: was personally reviewed by me Laboratory Data Attestation: I reviewed the patient's lab results. Result diagrams: 12/17/21 13:06 12/17/21 13:06 Lab Results 12/17/21 12/17/21 12/17/21 Range/Units 13:06 13:06 13:06 WBC 7.26 (4.8-10.8) K/ul RBC 4.25 L (4.63-6.08) M/uL Hgb 9.3 L (14.0-18.0) g/dl Hct 32.7 L (40.1-51.0) % MCV 76.9 L (80.0-100.0) fL MCH 21.9 L (25.0-34.0) pg MCHC 28.4 L (32.0-36.0) g/dL RDW Std Deviation 50.3 H (36.4-46.3) fL RDW Coeff of Caroline 18.2 H (11.5-14.5) % Plt Count 288 (130-400) K/uL MPV 11.9 (9.4-12.4) fL Immature Gran % (Auto) 0.1 % Neut % (Auto) 69.7 % Lymph % (Auto) 21.5 % [place] % (Auto) 6.7 % Eos % (Auto) 1.4 % Baso % (Auto) 0.6 % Neut # (Auto) 5.06 (1.4-6.5) K/uL Lymph # (Auto) 1.56 (1.2-3.4) K/uL [place] # (Auto) 0.49 (0.24-0.82) K/uL Eos # (Auto) 0.10 (0-0.50) K/uL Baso # (Auto) 0.04 (0-0.2) K/uL Immature Gran # (Auto) 0.01 (0.00-0.02) K/uL Polychromasia 1+ Anisocytosis Present Ovalocytes 2+ PT 13.7 H (9.0-12.0) Seconds INR 1.3 H (0.9-1.1) Sodium 147 H (136-145) mmol/L Potassium 3.4 L (3.5-5.1) mmol/L Chloride 115 H (98-107) mmol/L Carbon Dioxide 24 (21-32) mmol/L Anion Gap 8 (3-11) BUN 25 H (6-23) mg/dl Creatinine 0.73 (0.6-1.4) mg/dl Est Cr Clr Drug Dosing 110.3 ml/min Est GFR ( Amer) 114.4 ml/min Est GFR (Non-Af Amer) 98.7 ml/min BUN/Creatinine Ratio 34.2 H (10-20) Glucose 143 H (70-99(Fasting)) mg/dl Calcium 7.9 L (8.5-10.1) mg/dl Magnesium 1.5 L (1.7-2.4) mg/dl Total Bilirubin 0.3 (0.2-1.0) mg/dl AST 7 L (13-39) U/L ALT 5 L (7-52) U/L Alkaline Phosphatase 43 (34-104) U/L Troponin I High Sens 29.9 H (0-20) pg/ml Total Protein 6.1 (6.0-8.3) gm/dl Albumin 3.0 L (3.4-5.0) gm/dl Globulin 3.1 (2.5-4.0) gm/dl Albumin/Globulin Ratio 1.0 (0.9-2) TSH (0.300-4.500) uIu/ml SARS-CoV-2, RNA, NAAT (NEGATIVE) 12/17/21 12/17/21 Range/Units 13:06 13:08 WBC (4.8-10.8) K/ul RBC (4.63-6.08) M/uL Hgb (14.0-18.0) g/dl Hct (40.1-51.0) % MCV (80.0-100.0) fL MCH (25.0-34.0) pg MCHC (32.0-36.0) g/dL RDW Std Deviation (36.4-46.3) fL RDW Coeff of Caroline (11.5-14.5) % Plt Count (130-400) K/uL MPV (9.4-12.4) fL Immature Gran % (Auto) % Neut % (Auto) % Lymph % (Auto) % [place] % (Auto) % Eos % (Auto) % Baso % (Auto) % Neut # (Auto) (1.4-6.5) K/uL Lymph # (Auto) (1.2-3.4) K/uL [place] # (Auto) (0.24-0.82) K/uL Eos # (Auto) (0-0.50) K/uL Baso # (Auto) (0-0.2) K/uL Immature Gran # (Auto) (0.00-0.02) K/uL Polychromasia Anisocytosis Ovalocytes PT (9.0-12.0) Seconds INR (0.9-1.1) Sodium (136-145) mmol/L Potassium (3.5-5.1) mmol/L Chloride (98-107) mmol/L Carbon Dioxide (21-32) mmol/L Anion Gap (3-11) BUN (6-23) mg/dl Creatinine (0.6-1.4) mg/dl Est Cr Clr Drug Dosing ml/min Est GFR ( Amer) ml/min Est GFR (Non-Af Amer) ml/min BUN/Creatinine Ratio (10-20) Glucose (70-99(Fasting)) mg/dl Calcium (8.5-10.1) mg/dl Magnesium (1.7-2.4) mg/dl Total Bilirubin (0.2-1.0) mg/dl AST (13-39) U/L ALT (7-52) U/L Alkaline Phosphatase (34-104) U/L Troponin I High Sens (0-20) pg/ml Total Protein (6.0-8.3) gm/dl Albumin (3.4-5.0) gm/dl Globulin (2.5-4.0) gm/dl Albumin/Globulin Ratio (0.9-2) TSH 3.615 (0.300-4.500) uIu/ml SARS-CoV-2, RNA, NAAT NEGATIVE (NEGATIVE) Administered Medications Atorvastatin Calcium (Atorvastatin 40 Mg Tab) 80 mg PO QPM SUMA Stop: 01/16/22 20:59 Last Admin: 12/17/21 21:38 Dose: 80 mg Documented By: PK Carvedilol (Carvedilol 12.5 Mg Tab) 12.5 mg PO BID SUMA Stop: 01/16/22 20:59 Last Admin: 12/17/21 21:39 Dose: 12.5 mg Documented By: PK Enoxaparin Sodium (Enoxaparin 80 Mg/0.8 Ml Syr) 80 mg SQ AMHS SUMA Stop: 01/16/22 20:59 Last Admin: 12/17/21 21:38 Dose: 80 mg Documented By: PK Dextrose (D5w) 1,000 mls @ 80 mls/hr IV .[id number] SUMA Stop: 01/16/22 19:44 Last Admin: 12/17/21 21:08 Dose: 80 mls/hr Documented By: PK Insulin Aspart (Insulin Aspart Per Unit) 0 units SC ACHS SUMA Stop: 01/16/22 16:29 Last Admin: 12/17/21 21:42 Dose: 3 units Documented By: PK Co-signed By: REGULO Admin: 12/17/21 18:08 Dose: Not Given Documented By: DTT Insulin Glargine (Lantus Per Unit Charge) 14 units SQ QAM SUMA Stop: 01/16/22 08:59 Last Admin: 12/17/21 18:07 Dose: Not Given Documented By: DTT Insulin Glargine (Lantus Per Unit Charge) 10 units SQ QPM SUMA Stop: 01/16/22 20:59 Last Admin: 12/17/21 21:41 Dose: 10 units Documented By: PK Co-signed By: REGULO Tamsulosin HCl (Tamsulosin Hcl 0.4 Mg Cap) 0.4 mg PO HS SUMA Stop: 01/16/22 20:59 Last Admin: 12/17/21 21:38 Dose: 0.4 mg Documented By: PK Discontinued Medications Haloperidol Lactate (Haloperidol Lactate 5 Mg/Ml 1 Ml Vial) 5 mg IV NOW STA Stop: 12/17/21 13:24 Last Admin: 12/17/21 14:06 Dose: Not Given Documented By: MES Haloperidol Lactate (Haloperidol Lactate 5 Mg/Ml 1 Ml Vial) 2.5 mg IV NOW STA Stop: 12/17/21 13:52 Last Admin: 12/17/21 14:06 Dose: Not Given Documented By: MES Sodium Chloride (Nss) 500 mls @ 999 mls/hr IV .Q31M SUMA Stop: 12/17/21 13:30 Last Infusion: 12/17/21 14:46 Dose: 0 mls/hr Documented By: Admin: 12/17/21 14:05 Dose: 999 mls/hr Documented By: MES Sodium Chloride (Nss 1000ml) 1,000 mls @ 100 mls/hr IV .Q10H SUMA Stop: 12/17/21 22:59 Last Infusion: 12/17/21 21:01 Dose: 0 mls/hr Documented By: Admin: 12/17/21 13:23 Dose: 100 mls/hr Documented By: MES Magnesium Sulfate/Dextrose (Magnesium Sulfate / D5w) 1 gm in 100 mls @ 200 mls/hr IV Q30M SUMA Stop: 12/17/21 15:16 Last Infusion: 12/17/21 21:02 Dose: 0 mls/hr Documented By: Admin: 12/17/21 18:22 Dose: 100 mls/hr Documented By: Infusion: 12/17/21 15:36 Dose: 0 mls/hr Documented By: Admin: 12/17/21 15:00 Dose: 200 mls/hr Documented By: MES Magnesium Sulfate/Dextrose (Magnesium Sulfate / D5w) 1 gm in 100 mls @ 200 mls/hr IV Q30M SUMA Stop: 12/17/21 20:00 Last Infusion: 12/17/21 16:19 Dose: 0 mls/hr Documented By: Admin: 12/17/21 15:26 Dose: 200 mls/hr Documented By: MES Magnesium Sulfate/Dextrose (Magnesium Sulfate / D5w) 1 gm in 100 mls @ 50 mls/hr IV ONE ONE Stop: 12/17/21 21:29 Last Infusion: 12/17/21 22:31 Dose: 0 mls/hr Documented By: Admin: 12/17/21 20:29 Dose: 50 mls/hr Documented By: PK Lorazepam (Lorazepam 2 Mg/1 Ml Vial) 1 mg IV NOW STA; Protocol Stop: 12/17/21 13:24 Last Admin: 12/17/21 14:06 Dose: Not Given Documented By: ROBIN Potassium Chloride (Potassium Chloride Pwd 20 Meq Pack) 40 meq PO ONE ONE Stop: 12/17/21 20:46 Last Admin: 12/17/21 21:38 Dose: 40 meq Documented By: PK Imaging Data Radiologist's Impression: Chest X-Ray 12/17/21 12:56 SINGLE VIEW CHEST CLINICAL HISTORY: Syncope. FINDINGS: An AP, portable, semierect chest radiograph is compared to study dated 08/20/2021 and correlated with chest CT dated 11/17/2018. The examination is degraded by portable technique and patient rotation. The patient is status post midline sternotomy. The heart is enlarged noting atherosclerotic calcification of the thoracic aorta. The pulmonary vasculature is noncongested. Chronic interstitial thickening is similar to previous. The lungs and pleural spaces are clear. No pneumothorax is seen. The skeletal structures are osteopenic. The bony thorax is grossly intact. IMPRESSION: Cardiomegaly with no acute cardiopulmonary abnormality. ACT 112: Negative or not required by law. Electronically signed by: Donny Fernando M.D. 12/17/2021 1:20 PM Blood Pressure Blood Pressure Findings: Normal blood pressure Blood Pressure Disposition: did not require urgent referral Discharge Plan Visit Data Chief Complaint: Syncope Stated Complaint: syncope episode ED Provider: Laura Victor Discharge Problem: Syncope, Hypomagnesemia, History of CVA (cerebrovascular accident), Aortic stenosis, Acute dehydration Patient Disposition: Admitted As Inpatient Discharge Instructions Interventions: ED Discharge Assessment Last Done: 12/17/21 17:10
[2021-12-18 08:22] LABS: Troponin I High Sensitivity 22.6 pg/ml (0-20)
[2021-12-18 08:25] LABS: Albumin Level 2.8 gm/dl (3.4-5.0); BUN Creatinine Ratio 42.6 (10-20); Bilirubin,Total 0.3 mg/dl (0.2-1.0); Calcium 7.6 mg/dl (8.5-10.1); Creatinine Clr Calc Pharmacy 171.3 ml/min; Est GFR (African American) 137.1 ml/min; Est GFR (Non-African American) 118.3 ml/min; Globulin 2.8 gm/dl (2.5-4.0); Magnesium 1.8 mg/dl (1.7-2.4); Potassium 3.5 mmol/L (3.5-5.1); Total Protein 5.6 gm/dl (6.0-8.3)
[2021-12-18 08:36] LABS: Ferritin 15.2 ng/ml (8-388)
[2021-12-18 08:39] LABS: Hematocrit (blood only) 29.8 % (40.1-51.0); Hemoglobin 8.6 g/dl (14.0-18.0); Mean Corpuscular Hemoglobin 22.3 pg (25.0-34.0); Mean Corpuscular Hgb Conc 28.9 g/dL (32.0-36.0); Mean Corpuscular Volume 77.2 fL (80.0-100.0); Mean Platelet Volume 11.5 fL (9.4-12.4); Platelet Count 228 K/uL (130-400); RDW Coefficient of Variation 17.6 % (11.5-14.5); RDW Standard Deviation 49.3 fL (36.4-46.3); Red Blood Count 3.86 M/uL (4.63-6.08)
[2021-12-18] MEDS: INSULIN ASPART PER UNIT SC SCH ×4 (08:41→20:13)
[2021-12-18] MEDS: LANTUS PER UNIT CHARGE SQ SCH ×2 (08:41→20:15)
[2021-12-18] MEDS: BACLOFEN 10 MG TAB PO SCH (08:42)
[2021-12-18] MEDS: ASPIRIN 81 MG ECTAB PO SCH (08:42)
[2021-12-18] MEDS: ENOXAPARIN 80 MG/0.8 ML SYR SQ SCH ×2 (08:43→20:23)
[2021-12-18] MEDS: CLOPIDOGREL BISULFATE 75 MG TAB PO SCH (08:43)
[2021-12-18] MEDS: carvediloL 12.5 MG TAB PO SCH ×2 (08:44→20:24)
[2021-12-18] MEDS: lisinopril 5 MG TAB PO SCH (08:44)
--- NOTE | 2021-12-18 08:50 | Cardiology Consultation ---
Date of Consultation December 18, 2021 Assessment & Plan (1) Syncope: (2) Acute hypotension: (3) Acute dehydration: (4) Aortic stenosis: Plan Patient admitted for syncopal event likely related to acute hypotension/dehydration in the outpatient setting. BP improved with IV fluids in the ER. No recurrent symptoms Stop amlodipine for now. Hyperdynamic function on echo with LVH and borderline severe , stable from prior echo. Continue carvedilol. If BP trends higher off amlodipine, likely room to increase carvedilol for BP/HR support. No arrhythmias on traffic monitor specialist that would contribute to syncope. Echo reveals preserved LVEF, borderline severe , severe LVH - stable findings from prior echo in Fall 2020. Given chronic vascular disease, recurrent strokes, chronic LE wounds, conservative therapies recommended. Case discussed with Dr. Boykin Supervising Physician Co-Signing Physician Notes Patient seen examined the bedside. 61-year-old male with history of multiple CVA as detailed above presented to the ER with a syncopal episode. Patient able to offer minimal history. present at bedside. Telemetry reveals sinus rhythm in the 70s with occasional PVCs. PE: VSS. GEN: NAD. Heart: Regular rhythm, normal S1-S2. No murmur. Lungs: Diminished breath sounds at the bases bilateral. Poor effort, no rales, rhonchi, wheeze. Extremities: Bilateral lower extremity muscle wasting. + KYLIE stockings. A/P: Agree with above ROSIBEL history, physical exam, assessment and plan. 61 male with complex cardiovascular history detailed above presents with acute syncope. Repeat echocardiogram demonstrating stable borderline severe aortic valve stenosis with concentric left ventricular hypertrophy and hyperdynamic LV function. Patient volume depleted on presentation. Agree with gentle IV fluid and with holding amlodipine at this time. History of Present Illness Reason for Consultation: Syncope Requesting Physician: Josefina Yen PA-C Attending Physician: Dr. Boykin History of Present Illness Patient is a complex 61 year old male who presented to [facility] after a syncopal event at hematology clinic associated with hypotension and likely dehydration. He is known to [facility], Dr. Huff for complex history: 1. Borderline severe aortic valve stenosis 2. 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 Bare metal stent to protected left main coronary artery 08/13/2015 4. PCI drug-eluting stent to the saphenous vein graft to RPDA 04/17/2014 5. PCI, drug-eluting stent to the ostial portion of the SVG to RCA 12/04/2014 for severe in stent restenosis 6. Moderate carotid occlusive disease 7. Cerebral vascular disease status post bilateral frontal infarctions on 05/30/2015 while he was already on dual anti-platelet therapy with aspirin and clopidogrel, prompting initiation of warfarin at that time, recurrent stroke 11/2017 8. Diabetes 9. Dyslipidemia 10. H/o R great toeulcer /osteomyelitis 11 Chronic LE wounds for which he follows with wound clinic. 12. DVT in October 2021 while on chronic coumadin, INR therapeutic. Transitioned to lovenox injections. He previously failed Eliquis as well with recurrent CVA"s and vascular events. Upon arrival to ER yesterday after syncopal spell, he was found to have low BP. Glucose levels ok. Started on IV fluids, BP improved. Amlodipine placed on hold. Hbg was lower than his typical levels. Iron low this morning. No significant elevation in HS troponin. No acute EKG changes. No arrhythmias on telemetry. At time of consult, patient resting in bed comfortably. No recurrent l ightheadedness, dizziness, syncope or near syncope. Blood pressure is well controlled. No arrhythmias overnight. Echo was completed this morning and reviewed demonstrating borderline severe aortic stenosis, similar to prior study. Normal left ventricular ejection fraction. He voices no complaints at time of cards consult. No chest pain or dyspnea. Allergies Allergy/AdvReac Type Severity Reaction Status Date / Time No Known Allergies Allergy Verified 12/17/21 15:21 Home Medications Medication Instructions Recorded Confirmed Type nitroglycerin 0.4 mg sublingual 0.4 mg sublingual DIRECTED PRN 08/09/19 12/17/21 History tablet Chest Pain amlodipine 5 mg tablet (Norvasc) 5 mg PO QAM #30 tabs 09/22/20 12/17/21 Rx aspirin 81 mg tablet,delayed 81 mg PO QAM #30 tabs 09/22/20 12/17/21 Rx release baclofen 5 mg tablet 5 mg PO QAM #30 tabs 09/22/20 12/17/21 Rx carvedilol 12.5 mg tablet 12.5 mg PO BID #60 tabs 09/22/20 12/17/21 Rx clopidogrel 75 mg tablet (Plavix) 75 mg PO QAM #30 tabs 09/22/20 12/17/21 Rx insulin glargine 100 unit/mL See Rx Instructions .Route 09/22/20 12/17/21 Rx subcutaneous solution (Lantus .COMPLEX #10 mL U-100 Insulin) insulin aspart U-100 100 unit/mL 10 unit subcut AC 01/11/21 12/17/21 History subcutaneous solution (Novolog U-100 Insulin aspart) tamsulosin 0.4 mg capsule 0.4 mg PO HS 01/11/21 12/17/21 History atorvastatin 80 mg tablet 80 mg PO QPM 05/17/21 12/17/21 History lisinopril 10 mg tablet 5 mg PO DAILY #0 tabs 08/25/21 12/17/21 Rx enoxaparin 80 mg/0.8 mL 0.8 ml subcut AMHS 12/17/21 12/17/21 History subcutaneous syringe metformin 500 mg tablet 500 tab PO BID 12/17/21 12/17/21 History Patient History Medical History 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" Aortic valve stenosis BPH with obstruction/lower urinary tract symptoms CAD (coronary artery disease) Carotid stenosis Diabetic peripheral neuropathy associated with type 2 diabetes mellitus Dyslipidemia Hemiplegia affecting right dominant side History of CVA (cerebrovascular accident) History of pancreatitis HTN (hypertension) Hypomagnesemia Monoplegia affecting right dominant side Obesity Osteomyelitis of great toe of right foot Proliferative diabetic retinopathy Retinal edema Right foot drop Status post cerebrovascular accident Status post myocardial infarction Superior mesenteric artery stenosis Type 2 diabetes mellitus Surgical History Hx of vitrectomy S/P angioplasty with stent S/P CABG x 3 S/P PTCA (percutaneous transluminal coronary angioplasty) Family History Father Heart disease Social History Smoking Status: Former smoker Tobacco Type: Cigarettes Second Hand Exposure: No; Do You Dip or Chew Tobacco: No; Tobacco Cessation Education Requested by Patient: No Hx Alcohol Use: No Hx Substance Use: No Preferred Language: Kosovan Communication Ability: Impaired Visual Impairment: No Limitations Hearing Ability: Normal Commercial Singer Required: No Beliefs That Will Affect Care: None marital status: Current Living Situation: Spouse Current Living Situation Comment: Lives with in a split level home but he is in basement current occupational status: disabled Other Information That Helps Us Care for You: No Feels Safe at Home: Yes Safety Concerns: Feels Safe At This Time Assistive Devices: Glasses and Wheelchair Review of Systems Review of Systems: All systems reviewed & are unremarkable except as noted in HPI & below Physical Exam Constitutional: WD/WN, vitals as above comfortable; no acute distress Respiratory: normal respiratory effort, lungs clear to auscultation Cardiovascular: Rate/Rhythm: regular rate and regular rhythm Heart Sounds: + murmur (III/ systolic murmur throughout precordium and radiation to neck) Vessels: no JVD Extremities: no edema Gastrointestinal (Abdomen): normal bowel sounds, soft, nontender, no hepatosplenomegaly Neurologic: Speech / Cognition: + abnormal speech (chronically slurred) right sided hemiparesis Psychiatric: A+Ox3, euthymic affect Results & Data ([facility]) Vital Signs (Past 12 Hours) Vital Signs Temp Pulse Pulse Resp BP BP Pulse Ox 12/18/21 08:04 36.8 C 78 18 121/70 98 12/18/21 07:18 75 12/18/21 03:31 36.6 C 74 125/73 98 12/18/21 00:10 86 12/17/21 23:53 12/17/21 23:06 37.3 C 88 21 108/73 98 12/17/21 21:39 37.0 C 79 16 103/65 98 O2 Del Method 12/18/21 08:04 Room Air 12/18/21 07:18 12/18/21 03:31 Room Air 12/18/21 00:10 12/17/21 23:53 Room Air 12/17/21 23:06 Room Air 12/17/21 21:39 Room Air Laboratory Results Laboratory Results WBC 5.50 K/ul (4.8-10.8) 12/18/21 07:36 RBC 3.86 M/uL (4.63-6.08) L 12/18/21 07:36 Hgb 8.6 g/dl (14.0-18.0) L 12/18/21 07:36 Hct 29.8 % (40.1-51.0) L 12/18/21 07:36 MCV 77.2 fL (80.0-100.0) L 12/18/21 07:36 MCH 22.3 pg (25.0-34.0) L 12/18/21 07:36 MCHC 28.9 g/dL (32.0-36.0) L 12/18/21 07:36 RDW Std Deviation 49.3 fL (36.4-46.3) H 12/18/21 07:36 RDW Coeff of Caroline 17.6 % (11.5-14.5) H 12/18/21 07:36 Plt Count 228 K/uL (130-400) 12/18/21 07:36 MPV 11.5 fL (9.4-12.4) 12/18/21 07:36 Immature Gran % (Auto) 0.1 % 12/17/21 13:06 Neut % (Auto) 69.7 % 12/17/21 13:06 Lymph % (Auto) 21.5 % 12/17/21 13:06 [place] % (Auto) 6.7 % 12/17/21 13:06 Eos % (Auto) 1.4 % 12/17/21 13:06 Baso % (Auto) 0.6 % 12/17/21 13:06 Neut # (Auto) 5.06 K/uL (1.4-6.5) 12/17/21 13:06 Lymph # (Auto) 1.56 K/uL (1.2-3.4) 12/17/21 13:06 [place] # (Auto) 0.49 K/uL (0.24-0.82) 12/17/21 13:06 Eos # (Auto) 0.10 K/uL (0-0.50) 12/17/21 13:06 Baso # (Auto) 0.04 K/uL (0-0.2) 12/17/21 13:06 Immature Gran # (Auto) 0.01 K/uL (0.00-0.02) 12/17/21 13:06 Polychromasia 1+ 12/17/21 13:06 Anisocytosis Present 12/17/21 13:06 Ovalocytes 2+ 12/17/21 13:06 PT 13.7 Seconds (9.0-12.0) H 12/17/21 13:06 INR 1.3 (0.9-1.1) H 12/17/21 13:06 Sodium 141 mmol/L (136-145) 12/18/21 07:36 Potassium 3.5 mmol/L (3.5-5.1) 12/18/21 07:36 Chloride 112 mmol/L (98-107) H 12/18/21 07:36 Carbon Dioxide 23 mmol/L (21-32) 12/18/21 07:36 Anion Gap 6 (3-11) 12/18/21 07:36 BUN 20 mg/dl (6-23) 12/18/21 07:36 Creatinine 0.47 mg/dl (0.6-1.4) L 12/18/21 07:36 Est Cr Clr Drug Dosing 171.3 ml/min 12/18/21 07:36 Est GFR ( Amer) 137.1 ml/min 12/18/21 07:36 Est GFR (Non-Af Amer) 118.3 ml/min 12/18/21 07:36 BUN/Creatinine Ratio 42.6 (10-20) H 12/18/21 07:36 Glucose 224 mg/dl (70-99(Fasting)) H 12/18/21 07:36 POC Glucose 231 mg/dl (70-99) H 12/18/21 07:18 Calcium 7.6 mg/dl (8.5-10.1) L 12/18/21 07:36 Magnesium 1.8 mg/dl (1.7-2.4) 12/18/21 07:36 Iron 19 mcg/dl (35-175) L 12/18/21 07:36 Unsaturated IBC 209 mcg/dl (155-355) 12/18/21 07:36 Ferritin 15.2 ng/ml (8-388) 12/18/21 07:36 Total Bilirubin 0.3 mg/dl (0.2-1.0) 12/18/21 07:36 AST 9 U/L (13-39) L 12/18/21 07:36 ALT 7 U/L (7-52) 12/18/21 07:36 Alkaline Phosphatase 42 U/L (34-104) 12/18/21 07:36 Troponin I High Sens 22.6 pg/ml (0-20) H 12/18/21 07:36 Total Protein 5.6 gm/dl (6.0-8.3) L 12/18/21 07:36 Albumin 2.8 gm/dl (3.4-5.0) L 12/18/21 07:36 Globulin 2.8 gm/dl (2.5-4.0) 12/18/21 07:36 Albumin/Globulin Ratio 1.0 (0.9-2) 12/18/21 07:36 Vitamin B12 266 pg/ml (180-914) 12/18/21 07:36 TSH 3.615 uIu/ml (0.300-4.500) 12/17/21 13:06 Urine Color Yellow 12/18/21 02:19 Urine Appearance Clear (Clear) 12/18/21 02:19 Urine pH 5.0 (4.5-7.5) 12/18/21 02:19 Ur Specific [place] 1.029 (1.000-1.030) 12/18/21 02:19 Urine Protein Trace (Negative) H 12/18/21 02:19 Urine Glucose (UA) Negative (Negative) 12/18/21 02:19 Urine Ketones Negative (Negative) 12/18/21 02:19 Urine Blood Negative (Negative) 12/18/21 02:19 Urine Nitrite Negative (Negative) 12/18/21 02:19 Urine Bilirubin Negative (Negative) 12/18/21 02:19 Urine Urobilinogen Negative (Negative) 12/18/21 02:19 Ur Leukocyte Esterase Trace (Negative) H 12/18/21 02:19 Urine WBC (Auto) 5-10 /hpf (0-5) H 12/18/21 02:19 Urine RBC (Auto) 0-4 /hpf (0-4) 12/18/21 02:19 U Hyaline Cast (Auto) 1-5 /lpf (0-5) 12/18/21 02:19 U Epithel Cells (Auto) 20-30 /lpf (0-5) H 12/18/21 02:19 Urine Bacteria (Auto) Negative (Negative) 12/18/21 02:19 SARS-CoV-2, RNA, NAAT NEGATIVE (NEGATIVE) 12/17/21 13:08 Impressions Chest X-Ray 12/17/21 12:56 SINGLE VIEW CHEST CLINICAL HISTORY: Syncope. FINDINGS: An AP, portable, semierect chest radiograph is compared to study dated 08/20/2021 and correlated with chest CT dated 11/17/2018. The examination is degraded by portable technique and patient rotation. The patient is status post midline sternotomy. The heart is enlarged noting atherosclerotic calcification of the thoracic aorta. The pulmonary vasculature is noncongested. Chronic interstitial thickening is similar to previous. The lungs and pleural spaces are clear. No pneumothorax is seen. The skeletal structures are osteopenic. The bony thorax is grossly intact. IMPRESSION: Cardiomegaly with no acute cardiopulmonary abnormality. ACT 112: Negative or not required by law. Electronically signed by: Donny Fernando M.D. 12/17/2021 1:20 PM Diagnostic Findings Telemetry reviewed: NSR in the 70's. No concerning arrhythmias EKG - NSR with possible left atrial enlargement incomplete RBBB inferior infarct, previously reported T wave inversion in lateral leads. ST elevation in V1-V2, previously noted No significant change from previous Repeat EKG this morning: NSR, T wave inversion improved in lateral leads. Old inferior infarct Echo report reviewed: LVEF 65-70% Severe concentric LVH Small apical wall motion abnormality with thinning of the myocardium and akinesis. Aortic valve is moderately calcified Borderline severe Compared to prior study January 2021, no significant change noted. Medications Administered Current Inpatient Medications Acetaminophen (Acetaminophen 325 Mg Tab) 650 mg PO Q4H PRN PRN Reason: Moderate Pain Stop: 01/16/22 17:22 Amlodipine Besylate (Amlodipine Besylate 5 Mg Tab) 5 mg PO QAM [facility] Stop: 01/17/22 08:59 Aspirin (Aspirin 81 Mg Ectab) 81 mg PO QAM [facility] Stop: 01/17/22 08:59 Last Admin: 12/18/21 08:42 Dose: 81 mg Atorvastatin Calcium (Atorvastatin 40 Mg Tab) 80 mg PO QPM [facility] Stop: 01/16/22 20:59 Last Admin: 12/17/21 21:38 Dose: 80 mg Baclofen (Baclofen 10 Mg Tab) 5 mg PO QAM [facility] Stop: 01/17/22 08:59 Last Admin: 12/18/21 08:42 Dose: 5 mg Carvedilol (Carvedilol 12.5 Mg Tab) 12.5 mg PO BID [facility] Stop: 01/16/22 20:59 Last Admin: 12/18/21 08:44 Dose: 12.5 mg Clopidogrel Bisulfate (Clopidogrel Bisulfate 75 Mg Tab) 75 mg PO QAM [facility] Stop: 01/17/22 08:59 Last Admin: 12/18/21 08:43 Dose: 75 mg Dextrose (Dextrose 50% 50 Ml Syringe) 25 - 50 ml IV UD PRN; Protocol PRN Reason: Hypoglycemia Protocol Stop: 01/16/22 16:16 Enoxaparin Sodium (Enoxaparin 80 Mg/0.8 Ml Syr) 80 mg SQ AMHS [facility] Stop: 01/16/22 20:59 Last Admin: 12/18/21 08:43 Dose: 80 mg Glucagon (Glucagon For Inj 1 Mg Vial) 1 mg SQ UD PRN; Protocol PRN Reason: Hypoglycemia Protocol Stop: 01/16/22 16:16 Glucose (Glucose 40% Gel 15 Gm Tube) 15 - 30 gm PO UD PRN; Protocol PRN Reason: Hypoglycemia Protocol Stop: 01/16/22 16:16 Glucose (Glucose 10 Tab/Tube) 4 - 8 tab PO UD PRN; Protocol PRN Reason: Hypoglycemia Treatment Stop: 01/16/22 16:16 Dextrose (D5w) 1,000 mls @ 80 mls/hr IV .[id number] [facility] Stop: 01/16/22 19:44 Last Admin: 12/18/21 09:44 Dose: 80 mls/hr Insulin Aspart (Insulin Aspart Per Unit) 0 units SC ACHS [facility] Stop: 01/16/22 16:29 Last Admin: 12/18/21 12:19 Dose: 5 units Insulin Glargine (Lantus Per Unit Charge) 14 units SQ QAM [facility] Stop: 01/16/22 08:59 Last Admin: 12/18/21 08:41 Dose: 14 units Insulin Glargine (Lantus Per Unit Charge) 10 units SQ QPM [facility] Stop: 01/16/22 20:59 Last Admin: 12/17/21 21:41 Dose: 10 units Lisinopril (Lisinopril 5 Mg Tab) 5 mg PO DAILY [facility] Stop: 01/17/22 08:59 Last Admin: 12/18/21 08:44 Dose: 5 mg Miscellaneous (Carbohydrates For Hypoglycemia ) 15 - 30 gm PO UD PRN PRN Reason: Hypoglycemia Protocol Stop: 01/16/22 16:16 Ondansetron HCl (Ondansetron Inj 2 Mg/Ml 2 Ml Vial) 4 mg IV Q4H PRN PRN Reason: Nausea And Vomiting Stop: 01/16/22 17:22 Tamsulosin HCl (Tamsulosin Hcl 0.4 Mg Cap) 0.4 mg PO HS [facility] Stop: 01/16/22 20:59 Last Admin: 12/17/21 21:38 Dose: 0.4 mg
[2021-12-18] MEDS ORDERED: amLODIPine BESYLATE 5 MG TAB PO SCH (09:00)
[2021-12-18] MEDS: DEXTROSE 5% 1,000 ML IV SCH ×2 (09:44→22:24)
--- NOTE | 2021-12-18 18:05 | Electrocardiogram Report ---
Test Reason : Blood Pressure : / mmHG Vent. Rate : 075 BPM Atrial Rate : 075 BPM P-R Int : 146 ms QRS Dur : 086 ms QT Int : 388 ms P-R-T Axes : 128 146 056 degrees QTc Int : 433 ms Suspect arm lead reversal, interpretation assumes no reversal Unusual P axis, possible ectopic atrial rhythm Inferior infarct (cited on or before 13-OCT-2006) Anterolateral infarct (cited on or before 13-OCT-2006) Abnormal ECG When compared with ECG of 17-DEC-2021 13:10, Ectopic atrial rhythm has replaced Sinus rhythm QRS axis Shifted right Non-specific change in ST segment in Lateral leads Confirmed by Tucker Pollard ([id number]) on 12/18/2021 6:05:17 PM Referred By: REFERRED SELF Confirmed By:Bryon Pollard
[2021-12-18] MEDS: ATORVASTATIN 40 MG TAB PO SCH (20:22)
[2021-12-18] MEDS: TAMSULOSIN HCL 0.4 MG CAP PO SCH (20:22)
--- NOTE | 2021-12-18 22:04 | Hospitalist Progress Note ---
Date of Service December 18, 2021 Assessment & Plan (1) Syncopal episodes: (2) History of CVA (cerebrovascular accident): (3) CAD (coronary artery disease): (4) Aortic valve stenosis: (5) Hypomagnesemia: (6) HTN (hypertension): (7) Type 2 diabetes mellitus: (8) DVT (deep venous thrombosis): Plan: Present to the ED after sending from Oncology clinic for syncope and Low BP Syncope Possible related to low BP and dehydration received IV fluid with BP improved Amlodipine placed on hold Repeat echocardiogram demonstrating stable borderline severe aortic valve stenosis with concentric left ventricular hypertrophy and hyperdynamic LV function. tele monitor showed no arrhythmia cardiology on board recommended if BP starts to increase while off the amlodipine to increase the Carvedilol Continue monitor closely History of CVA (cerebrovascular accident): CAD Continue aspirin, Plavix, Lovenox, Lipitor Type 2 diabetes mellitus: Hba1c back in August was 6.7 Continue Lantus and novolog sliding scale While monitor BS closely while on D5w Continue monitor BS HTN (hypertension): BP was low at the Oncology office Received gentle IVF Continue to hold Amlodipine Continue Lisinopril 5mg Continue monitor BP Paroxysmal atrial fibrillation: rate controlled with Carvedilol Continue anticoagulant with Lovenox Decubitus Ulcer continue daily wound care Wound care on board HX of DVT Right LE DVT on 10/22/21 while on coumadin with therapeutic INR He had a stroke while on Eliquis Anticoagulant was changed to Lovenox 80mg BID Outpatient docummentation with hematology recommended to continue Lovenox half-way DVT ppx: scds, lovenox CODE: Full code Diposition PT/OT recommended inpatient rehab Admission and Anticipated Discharge Date Admission Date: December 17, 2021 Subjective Pt was seen and examined for follow up of syncope and low BP Lying in bed with at bedside feeding him Pt seems to be back to baseline He was able to answered question and said that he was fine Denies any chest pain, palpitation, dizziness and SOB Review of Systems Review of Systems: All systems reviewed & are unremarkable except as noted in Subjective Physical Exam Physical Exam: General- No acute distress Head- atraumatic Eyes- PERRL, EOMI, ENT- oropharynx clear Neck- supple, no JVD Lungs- clear to auscultation Heart- regular rhythm; +systolic murmur Abdomen- normal bowel sounds, soft, nontender Extremities- no calf tenderness Neuro- alert, oriented; PERRL, EOMI; +slurred speech, +right sided hemiparesis Skin- warm & dry Results & Data Results & Data ([facility]) Vital Signs (Past 12 Hours) Vital Signs Temp Pulse Pulse Resp BP Pulse Ox O2 Del Method 12/18/21 19:30 Room Air 12/18/21 20:23 79 140/70 12/18/21 19:00 37.4 C 77 18 143/81 H 98 12/18/21 15:41 36.6 C 74 18 129/72 99 Room Air 12/18/21 14:36 69 12/18/21 12:29 36.5 C 71 20 110/70 100 Room Air
[2021-12-19 08:29] LABS: Hematocrit (blood only) 26.4 % (40.1-51.0); Hemoglobin 7.6 g/dl (14.0-18.0); Mean Corpuscular Hemoglobin 21.8 pg (25.0-34.0); Mean Corpuscular Hgb Conc 28.8 g/dL (32.0-36.0); Mean Corpuscular Volume 75.9 fL (80.0-100.0); Mean Platelet Volume 11.8 fL (9.4-12.4); Platelet Count 211 K/uL (130-400); RDW Coefficient of Variation 17.2 % (11.5-14.5); Red Blood Count 3.48 M/uL (4.63-6.08); White Blood Count 5.15 K/ul (4.8-10.8)
[2021-12-19] MEDS: BACLOFEN 10 MG TAB PO SCH (08:30)
[2021-12-19] MEDS: CLOPIDOGREL BISULFATE 75 MG TAB PO SCH (08:30)
[2021-12-19] MEDS: carvediloL 12.5 MG TAB PO SCH ×2 (08:31→20:10)
[2021-12-19] MEDS: ASPIRIN 81 MG ECTAB PO SCH (08:31)
[2021-12-19] MEDS: lisinopril 5 MG TAB PO SCH (08:31)
[2021-12-19 08:57] LABS: Albumin Level 2.5 gm/dl (3.4-5.0); BUN Creatinine Ratio 26.1 (10-20); Bilirubin,Total 0.3 mg/dl (0.2-1.0); Calcium 7.5 mg/dl (8.5-10.1); Creatinine Clr Calc Pharmacy 175.1 ml/min; Est GFR (African American) 138.3 ml/min; Est GFR (Non-African American) 119.4 ml/min; Globulin 2.6 gm/dl (2.5-4.0); Potassium 3.4 mmol/L (3.5-5.1); Total Protein 5.1 gm/dl (6.0-8.3)
[2021-12-19] MEDS: ENOXAPARIN 80 MG/0.8 ML SYR SQ SCH ×2 (09:03→20:08)
[2021-12-19] MEDS: INSULIN ASPART PER UNIT SC SCH ×4 (09:11→20:32)
[2021-12-19] MEDS: LANTUS PER UNIT CHARGE SQ SCH ×2 (09:11→20:33)
[2021-12-19] MEDS ORDERED: POTASSIUM CHLORIDE CRTAB 20 MEQ TABCR PO STA (09:46)
[2021-12-19 16:40] LABS: Hematocrit (blood only) 27.4 % (40.1-51.0); Hemoglobin 7.9 g/dl (14.0-18.0)
[2021-12-19] MEDS: ATORVASTATIN 40 MG TAB PO SCH (20:09)
[2021-12-19] MEDS: TAMSULOSIN HCL 0.4 MG CAP PO SCH (20:09)
--- NOTE | 2021-12-19 20:46 | Hospitalist Progress Note ---
Date of Service December 19, 2021 Assessment & Plan (1) Syncopal episodes: (2) History of CVA (cerebrovascular accident): (3) CAD (coronary artery disease): (4) Aortic valve stenosis: (5) Hypomagnesemia: (6) HTN (hypertension): (7) Type 2 diabetes mellitus: (8) DVT (deep venous thrombosis): Plan: Present to the ED after sending from Oncology clinic for syncope and Low BP Syncope Possible related to low BP and dehydration received IV fluid with BP improved Amlodipine placed on hold Repeat echocardiogram demonstrating stable borderline severe aortic valve stenosis with concentric left ventricular hypertrophy and hyperdynamic LV function. tele monitor showed no arrhythmia cardiology on board recommended if BP starts to increase while off the amlodipine to increase the Carvedilol Continue monitor closely History of CVA (cerebrovascular accident): CAD Continue aspirin, Plavix, Lovenox, Lipitor Anemia Hgb dropped to 7.6 No sign of active bleeding repeat Hgb 7.9 Continue monitor hgb Type 2 diabetes mellitus: Hba1c back in August was 6.7 Continue Lantus and novolog sliding scale While monitor BS closely while on D5w Continue monitor BS HTN (hypertension): BP was low at the Oncology office Received gentle IVF Continue to hold Amlodipine Continue Lisinopril 5mg Continue monitor BP Paroxysmal atrial fibrillation: rate controlled with Carvedilol Continue anticoagulant with Lovenox Decubitus Ulcer continue daily wound care Wound care on board HX of DVT Right LE DVT on 10/22/21 while on coumadin with therapeutic INR He had a stroke while on Eliquis Anticoagulant was changed to Lovenox 80mg BID Outpatient documentation with hematology recommended to continue Lovenox usp DVT ppx: scds, lovenox CODE: Full code Diposition PT/OT recommended inpatient rehab Admission and Anticipated Discharge Date Admission Date: December 17, 2021 Subjective Pt was seen and examined for follow up of syncope and low BP Lying in bed with no acute distress with at bedside Pt is looking much better today Spoke to Dr. Torres his home health provider on behalf of the updated at bedside and answered all questions Denies any chest pain, palpitation, dizziness and SOB Review of Systems Review of Systems: All systems reviewed & are unremarkable except as noted in Subjective Physical Exam Physical Exam: General- No acute distress Head- atraumatic Eyes- PERRL, EOMI, ENT- oropharynx clear Neck- supple, no JVD Lungs- clear to auscultation Heart- regular rhythm; +systolic murmur Abdomen- normal bowel sounds, soft, nontender Extremities- no calf tenderness Neuro- alert, oriented; PERRL, EOMI; +slurred speech, +right sided hemiparesis Skin- warm & dry Results & Data Results & Data ([facility]) Vital Signs (Past 12 Hours) Vital Signs Temp Pulse Pulse Resp BP Pulse Ox O2 Del Method 12/19/21 19:53 Room Air 12/19/21 19:34 37.4 C 88 18 97/61 L 96 Room Air 12/19/21 16:02 36.7 C 87 20 127/73 98 Room Air 12/19/21 15:16 80 12/19/21 11:56 36.9 C 84 19 116/69 99 Room Air
[2021-12-20 07:19] LABS: Hemoglobin 7.7 g/dl (14.0-18.0); Mean Corpuscular Hemoglobin 22.2 pg (25.0-34.0); Mean Corpuscular Hgb Conc 29.6 g/dL (32.0-36.0); Mean Corpuscular Volume 74.9 fL (80.0-100.0); Mean Platelet Volume 12.1 fL (9.4-12.4); Platelet Count 207 K/uL (130-400); RDW Coefficient of Variation 17.3 % (11.5-14.5); RDW Standard Deviation 46.3 fL (36.4-46.3); Red Blood Count 3.47 M/uL (4.63-6.08); White Blood Count 4.91 K/ul (4.8-10.8)
[2021-12-20 08:01] LABS: Albumin Level 2.7 gm/dl (3.4-5.0); BUN Creatinine Ratio 24.5 (10-20); Bilirubin,Total 0.3 mg/dl (0.2-1.0); Calcium 7.4 mg/dl (8.5-10.1); Creatinine Clr Calc Pharmacy 164.3 ml/min; Est GFR (African American) 134.8 ml/min; Est GFR (Non-African American) 116.3 ml/min; Globulin 2.7 gm/dl (2.5-4.0); Potassium 3.5 mmol/L (3.5-5.1); Total Protein 5.4 gm/dl (6.0-8.3)
[2021-12-20] MEDS: ENOXAPARIN 80 MG/0.8 ML SYR SQ SCH ×2 (08:29→20:15)
[2021-12-20] MEDS: carvediloL 12.5 MG TAB PO SCH ×2 (08:29→20:14)
[2021-12-20] MEDS: ASPIRIN 81 MG ECTAB PO SCH (08:30)
[2021-12-20] MEDS: BACLOFEN 10 MG TAB PO SCH (08:30)
[2021-12-20] MEDS: CLOPIDOGREL BISULFATE 75 MG TAB PO SCH (08:30)
[2021-12-20] MEDS: lisinopril 5 MG TAB PO SCH (08:30)
[2021-12-20] MEDS: FERROUS SULFATE 325 MG TAB PO SCH (08:31)
[2021-12-20] MEDS: LANTUS PER UNIT CHARGE SQ SCH ×2 (08:31→20:11)
[2021-12-20] MEDS: INSULIN ASPART PER UNIT SC SCH ×4 (08:31→20:12)
--- NOTE | 2021-12-20 16:57 | Hospitalist Progress Note ---
Date of Service December 20, 2021 Assessment & Plan (1) Syncopal episodes: (2) History of CVA (cerebrovascular accident): (3) CAD (coronary artery disease): (4) Aortic valve stenosis: (5) Hypomagnesemia: (6) HTN (hypertension): (7) Type 2 diabetes mellitus: (8) DVT (deep venous thrombosis): Plan: Present to the ED after sending from Oncology clinic for syncope and Low BP Syncope Possible related to low BP and dehydration received IV fluid with BP improved Amlodipine placed on hold Repeat echocardiogram demonstrating stable borderline severe aortic valve stenosis with concentric left ventricular hypertrophy and hyperdynamic LV function. tele monitor showed no arrhythmia cardiology on board recommended if BP starts to increase while off the amlodipine to increase the Carvedilol Continue monitor closely History of CVA (cerebrovascular accident): CAD Continue aspirin, Plavix, Lovenox, Lipitor Anemia Hgb dropped to 7.6 No sign of active bleeding Hgb 7.7 today Continue monitor hgb Type 2 diabetes mellitus: Hba1c back in August was 6.7 Continue Lantus and novolog sliding scale While monitor BS closely while on D5w Continue monitor BS HTN (hypertension): BP was low at the Oncology office Received gentle IVF Continue to hold Amlodipine Continue Lisinopril 5mg Continue monitor BP Paroxysmal atrial fibrillation: rate controlled with Carvedilol Continue anticoagulant with Lovenox Decubitus Ulcer continue daily wound care Wound care on board HX of DVT Right LE DVT on 10/22/21 while on coumadin with therapeutic INR He had a stroke while on Eliquis Anticoagulant was changed to Lovenox 80mg BID Outpatient documentation with hematology recommended to continue Lovenox detention DVT ppx: scds, lovenox CODE: Full code Diposition PT/OT recommended inpatient rehab Admission and Anticipated Discharge Date Admission Date: December 19, 2021 Subjective Pt was seen and examined for follow up of syncope and low BP Lying in bed with no acute distress with at bedside Pt answered that he feels fine Denies any chest pain, palpitation, dizziness and SOB Review of Systems Review of Systems: All systems reviewed & are unremarkable except as noted in Subjective Physical Exam Physical Exam: General- No acute distress Head- atraumatic Eyes- PERRL, EOMI, ENT- oropharynx clear Neck- supple, no JVD Lungs- clear to auscultation Heart- regular rhythm; +systolic murmur Abdomen- normal bowel sounds, soft, nontender Extremities- no calf tenderness Neuro- alert, oriented; PERRL, EOMI; +slurred speech, +right sided hemiparesis Skin- warm & dry Results & Data Results & Data ([facility] [place]) Vital Signs (Past 12 Hours) Vital Signs Temp Pulse Pulse Resp BP Pulse Ox O2 Del Method 12/20/21 16:03 37.1 C 78 17 148/77 H 98 Room Air 12/20/21 15:03 73 12/20/21 11:45 36.8 C 76 16 132/76 98 Room Air 12/20/21 08:00 77 12/20/21 08:00 Room Air 12/20/21 07:25 36.8 C 80 18 115/69 98 Room Air
[2021-12-20] MEDS: ATORVASTATIN 40 MG TAB PO SCH (20:14)
[2021-12-20] MEDS: TAMSULOSIN HCL 0.4 MG CAP PO SCH (20:14)
[2021-12-21 06:33] LABS: Hematocrit (blood only) 25.9 % (40.1-51.0); Hemoglobin 7.5 g/dl (14.0-18.0); Mean Corpuscular Hemoglobin 22.1 pg (25.0-34.0); Mean Corpuscular Volume 76.2 fL (80.0-100.0); Mean Platelet Volume 11.3 fL (9.4-12.4); Platelet Count 216 K/uL (130-400); RDW Coefficient of Variation 17.5 % (11.5-14.5); White Blood Count 5.09 K/ul (4.8-10.8)
[2021-12-21 06:52] LABS: Creatinine Clr Calc Pharmacy 151.9 ml/min; Est GFR (African American) 130.5 ml/min; Est GFR (Non-African American) 112.6 ml/min
[2021-12-21] MEDS: carvediloL 12.5 MG TAB PO SCH ×2 (08:54→20:10)
[2021-12-21] MEDS: ASPIRIN 81 MG ECTAB PO SCH (08:54)
[2021-12-21] MEDS: FERROUS SULFATE 325 MG TAB PO SCH (08:54)
[2021-12-21] MEDS: ENOXAPARIN 80 MG/0.8 ML SYR SQ SCH ×2 (08:54→20:10)
[2021-12-21] MEDS: CLOPIDOGREL BISULFATE 75 MG TAB PO SCH (08:54)
[2021-12-21] MEDS: BACLOFEN 10 MG TAB PO SCH (08:54)
[2021-12-21] MEDS: lisinopril 5 MG TAB PO SCH (08:54)
[2021-12-21] MEDS: INSULIN ASPART PER UNIT SC SCH ×4 (09:09→20:12)
[2021-12-21] MEDS: LANTUS PER UNIT CHARGE SQ SCH ×2 (09:10→20:12)
--- NOTE | 2021-12-21 14:34 | Hospitalist Progress Note ---
Date of Service December 21, 2021 Assessment & Plan (1) Syncopal episodes: (2) History of CVA (cerebrovascular accident): (3) CAD (coronary artery disease): (4) Aortic valve stenosis: (5) Hypomagnesemia: (6) HTN (hypertension): (7) Type 2 diabetes mellitus: (8) DVT (deep venous thrombosis): Plan: Present to the ED after sending from Oncology clinic for syncope and Low BP Syncope Possible related to low BP and dehydration received IV fluid with BP improved Amlodipine placed on hold Repeat echocardiogram demonstrating stable borderline severe aortic valve stenosis with concentric left ventricular hypertrophy and hyperdynamic LV function. tele monitor showed no arrhythmia cardiology on board recommended if BP starts to increase while off the amlodipine to increase the Carvedilol Continue monitor closely History of CVA (cerebrovascular accident): CAD Continue Plavix, Lovenox, Lipitor Anemia Hgb dropped to 7.6 No sign of active bleeding Hgb 7.5 today Will check FOBT Consider type and cross and transfuse 1 unit prbc if repeat hgb drops further If FOBT positive, will consult GI and vascular surgery due to recent DVT in 10/25 to evaluate for IVF filter later, case discussed with hematology dr. Huntley that recommended GI eval since it will be easy for GI to see the patient while in the hospital in case if GI want to do any procedure that we can transition him on Heparin drip Type 2 diabetes mellitus: Hba1c back in August was 6.7 Continue Lantus and novolog sliding scale Continue monitor BS HTN (hypertension): BP was low at the Oncology office Received gentle IVF Continue to hold Amlodipine Continue Lisinopril 5mg Continue monitor BP Paroxysmal atrial fibrillation: rate controlled with Carvedilol Continue anticoagulant with Lovenox ( monitor h/h closely) Decubitus Ulcer continue daily wound care Wound care on board HX of DVT Right LE DVT on 10/22/21 while on coumadin with therapeutic INR He had a stroke while on Eliquis Anticoagulant was changed to Lovenox 80mg BID Outpatient documentation with hematology recommended to continue Lovenox nursing home Check FOBT due to drop of Hgb If hgb continues to drop, will consider to switch to heparin while in patient and consult vascular and GI DVT ppx: scds, lovenox BID for now CODE: Full code Disposition PT/OT recommended inpatient rehab Admission and Anticipated Discharge Date Admission Date: December 19, 2021 Subjective Pt was seen and examined for follow up of syncope and low BP Lying in bed with no acute distress Hgb 7.5 today. No evidence of blood stool as per staff Spoke to over the phone to provide with update and answered all her questions Denies any chest pain, palpitation, dizziness and SOB Review of Systems Review of Systems: All systems reviewed & are unremarkable except as noted in Subjective Physical Exam Physical Exam: General- No acute distress Head- atraumatic Eyes- PERRL, EOMI, ENT- oropharynx clear Neck- supple, no JVD Lungs- clear to auscultation Heart- regular rhythm; +systolic murmur Abdomen- normal bowel sounds, soft, nontender Extremities- no calf tenderness Neuro- alert, oriented; PERRL, EOMI; +slurred speech, +right sided hemiparesis Skin- warm & dry Results & Data Results & Data ([facility]) Vital Signs (Past 12 Hours) Vital Signs Temp Pulse Pulse Resp BP Pulse Ox O2 Del Method 12/21/21 11:20 36.4 C L 93 H 20 109/67 100 Room Air 12/21/21 08:00 88 12/21/21 08:00 Room Air 12/21/21 07:13 36.7 C 88 19 145/82 H 95 Room Air 12/21/21 03:25 36.9 C 61 18 106/53 L 99
[2021-12-21 17:52] LABS: Hematocrit (blood only) 25.4 % (40.1-51.0); Hemoglobin 7.5 g/dl (14.0-18.0)
[2021-12-21] MEDS: ATORVASTATIN 40 MG TAB PO SCH (20:10)
[2021-12-21] MEDS: TAMSULOSIN HCL 0.4 MG CAP PO SCH (20:10)
[2021-12-22] MEDS: INSULIN ASPART PER UNIT SC SCH ×4 (08:33→21:05)
[2021-12-22] MEDS: carvediloL 12.5 MG TAB PO SCH ×2 (08:34→20:39)
[2021-12-22] MEDS: ENOXAPARIN 80 MG/0.8 ML SYR SQ SCH ×2 (08:34→20:16)
[2021-12-22] MEDS: LANTUS PER UNIT CHARGE SQ SCH ×2 (08:34→21:04)
[2021-12-22] MEDS: lisinopril 5 MG TAB PO SCH (08:35)
[2021-12-22] MEDS: FERROUS SULFATE 325 MG TAB PO SCH (08:35)
[2021-12-22] MEDS: BACLOFEN 10 MG TAB PO SCH (08:35)
[2021-12-22] MEDS: ASPIRIN 81 MG ECTAB PO SCH (08:35)
[2021-12-22] MEDS: CLOPIDOGREL BISULFATE 75 MG TAB PO SCH (08:35)
--- NOTE | 2021-12-22 09:38 | Gastrointestinal Consultation ---
Date of Consultation December 22, 2021 Assessment & Plan (1) Anemia: 61 year old male with history of CAD, HTN, T2DM, DVT, CVA admitted w/ syncope GI asked to evaluate for anemia, no report of black or bloody stools. He is due for colonoscopy this year, but not agreeable to completing this examination. He is ,however, agreeable to EGD. Can continue diet today Will discuss with attending IP egd vs OP egd PO PPI BID Trend HGB Transfuse per primary team No NSAIDs Can continue other medications at present time Thank you for allowing us to participate in the care of this patient. Please call with any acute changes, questions or concerns. Please see addendum below with additional recommendation from my supervising physician. Supervising Physician Co-Signing Physician Notes Saw and evaluated the patient. We were consulted for evaluation of progressive anemia. The patient does have a number of medical problems and denies having dark sticky stool. Examination frail appearing older than stated age Abdominal tenderness Impression: Patient with a history of worsening anemia we will plan for upper endoscopy as the initial endoscopic evaluation. If negative we could consider further evaluation with colonoscopy to be done either as an inpatient or outpatient. History of Present Illness Reason for Consultation: anemia Requesting Physician: Shahzad Attending Physician: Marcus Pike MD History of Present Illness 61 year old male with history of right lower extremity DVT found on 10/22/2021, on oral Coumadin, switched to Lovenox twice daily, history of multiple CVA, chronic right hemiparesis admitted w/ syncope and weakness - GI asked to evaluate for anemia. Pt was seen and evaluated, chart reviewed. Notes that he has been moving his bowels. No report of black or bloody stools. Denies abd pain. No nausea, vomiting. No black or bloody emesis. HGB 7.5 down from 9 on admission BUN 12 EGD: none EUS 2011: fatty pancreas, fatty liver Colonoscopy 2017: done for hx of polyps, polyp removed, adenoma, repeat recommend 5 years Allergies Allergy/AdvReac Type Severity Reaction Status Date / Time No Known Allergies Allergy Verified 12/17/21 15:21 Home Medications Medication Instructions Recorded Confirmed Type nitroglycerin 0.4 mg sublingual 0.4 mg sublingual DIRECTED PRN 08/09/19 12/17/21 History tablet Chest Pain amlodipine 5 mg tablet (Norvasc) 5 mg PO QAM #30 tabs 09/22/20 12/17/21 Rx aspirin 81 mg tablet,delayed 81 mg PO QAM #30 tabs 09/22/20 12/17/21 Rx release baclofen 5 mg tablet 5 mg PO QAM #30 tabs 09/22/20 12/17/21 Rx carvedilol 12.5 mg tablet 12.5 mg PO BID #60 tabs 09/22/20 12/17/21 Rx clopidogrel 75 mg tablet (Plavix) 75 mg PO QAM #30 tabs 09/22/20 12/17/21 Rx insulin glargine 100 unit/mL See Rx Instructions .Route 09/22/20 12/17/21 Rx subcutaneous solution (Lantus .COMPLEX #10 mL U-100 Insulin) insulin aspart U-100 100 unit/mL 10 unit subcut AC 01/11/21 12/17/21 History subcutaneous solution (Novolog U-100 Insulin aspart) tamsulosin 0.4 mg capsule 0.4 mg PO HS 01/11/21 12/17/21 History atorvastatin 80 mg tablet 80 mg PO QPM 05/17/21 12/17/21 History lisinopril 10 mg tablet 5 mg PO DAILY #0 tabs 08/25/21 12/17/21 Rx enoxaparin 80 mg/0.8 mL 0.8 ml subcut [facility] 12/17/21 12/17/21 History subcutaneous syringe metformin 500 mg tablet 500 mg PO BID 12/17/21 12/18/21 History Patient History Medical History 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" Aortic valve stenosis BPH with obstruction/lower urinary tract symptoms CAD (coronary artery disease) Carotid stenosis Diabetic peripheral neuropathy associated with type 2 diabetes mellitus Dyslipidemia Hemiplegia affecting right dominant side History of CVA (cerebrovascular accident) History of pancreatitis HTN (hypertension) Hypomagnesemia Monoplegia affecting right dominant side Obesity Osteomyelitis of great toe of right foot Proliferative diabetic retinopathy Retinal edema Right foot drop Status post cerebrovascular accident Status post myocardial infarction Superior mesenteric artery stenosis Type 2 diabetes mellitus Surgical History Hx of vitrectomy S/P angioplasty with stent S/P CABG x 3 S/P PTCA (percutaneous transluminal coronary angioplasty) Family History Father Heart disease Social History Smoking Status: Former smoker Tobacco Type: Cigarettes Second Hand Exposure: No; Do You Dip or Chew Tobacco: No; Tobacco Cessation Education Requested by Patient: No Hx Alcohol Use: No Hx Substance Use: No Preferred Language: Chinese Communication Ability: Impaired Visual Impairment: No Limitations Hearing Ability: Normal Supervisor Harvesting Required: No Beliefs That Will Affect Care: None marital status: Current Living Situation: Spouse Current Living Situation Comment: Lives with in a split level home but he is in basement current occupational status: disabled Other Information That Helps Us Care for You: No Feels Safe at Home: Yes Safety Concerns: Feels Safe At This Time Assistive Devices: Wheelchair Review of Systems Review of Systems: All systems reviewed & are unremarkable except as noted in HPI & below Physical Exam Constitutional: WD/WN, vitals as above Respiratory: normal respiratory effort, lungs clear to auscultation Cardiovascular: RRR, no murmur, no edema Gastrointestinal (Abdomen): normal bowel sounds, soft, nontender, no hepatosplenomegaly Skin: no rashes, warm and dry Results & Data ([facility]) Vital Signs (Past 12 Hours) Vital Signs Temp Pulse Pulse Resp BP Pulse Ox O2 Del Method 12/22/21 08:00 81 12/22/21 08:00 Room Air 12/22/21 08:08 36.5 C 81 18 118/72 99 Room Air 12/22/21 03:03 36.5 C 80 16 148/80 H 98 Room Air 12/21/21 22:48 80 12/21/21 22:43 36.3 C L 80 15 129/80 98 Room Air Laboratory Results 12/22/21 12/21/21 12/21/21 Range/Units 07:29 20:06 17:17 Hgb 7.5 L (14.0-18.0) g/dl Hct 25.4 L (40.1-51.0) % POC Glucose 144 H 199 H (70-99) mg/dl 12/21/21 12/21/21 Range/Units 16:07 11:25 Hgb (14.0-18.0) g/dl Hct (40.1-51.0) % POC Glucose 227 H 260 H (70-99) mg/dl
[2021-12-22 12:09] LABS: BUN Creatinine Ratio 22.9 (10-20); Calcium 7.6 mg/dl (8.5-10.1); Creatinine Clr Calc Pharmacy 167.8 ml/min; Est GFR (African American) 135.9 ml/min; Est GFR (Non-African American) 117.3 ml/min; Magnesium 1.3 mg/dl (1.7-2.4); Phosphorus 2.8 mg/dl (2.5-4.9); Potassium 3.7 mmol/L (3.5-5.1)
[2021-12-22 12:20] LABS: Hematocrit (blood only) 23.2 % (40.1-51.0); Hemoglobin 6.9 g/dl (14.0-18.0); Mean Corpuscular Hemoglobin 22.3 pg (25.0-34.0); Mean Corpuscular Hgb Conc 29.7 g/dL (32.0-36.0); Mean Corpuscular Volume 74.8 fL (80.0-100.0); Mean Platelet Volume 12.4 fL (9.4-12.4); Platelet Count 202 K/uL (130-400); RDW Coefficient of Variation 17.9 % (11.5-14.5); RDW Standard Deviation 47.4 fL (36.4-46.3); White Blood Count 5.66 K/ul (4.8-10.8)
[2021-12-22] MEDS ORDERED: MAGNESIUM SULFATE / D5W 1 GM/100 ML BAG IV ONE (12:41)
[2021-12-22] MEDS ORDERED: SODIUM CHLORIDE 0.9% 250 ML IV PRN (14:24)
--- NOTE | 2021-12-22 14:27 | Hospitalist Progress Note ---
Date of Service December 22, 2021 Assessment & Plan (1) Syncopal episodes: (2) History of CVA (cerebrovascular accident): (3) CAD (coronary artery disease): (4) Aortic valve stenosis: (5) Hypomagnesemia: (6) HTN (hypertension): (7) Type 2 diabetes mellitus: (8) DVT (deep venous thrombosis): Plan: Presented to the ED after sending from Oncology clinic for syncope and Low BP Syncope Possible related to low BP and dehydration received IV fluid with BP improved Amlodipine placed on hold Repeat echocardiogram demonstrating stable borderline severe aortic valve stenosis with concentric left ventricular hypertrophy and hyperdynamic LV function. tele monitor showed no arrhythmia Cardiology consulted - recommended if BP starts to increase while off the amlodipine to increase the Carvedilol Continue monitor closely History of CVA (cerebrovascular accident): CAD Continue Plavix, Lovenox, Lipitor (hold ASA, discussed w/ cardiology and hem/onc) Anemia Hgb dropped to 6.9 (12/22) 1 unit of pRBC ordered No sign of active bleeding FOBT negative case discussed with hematology dr. Huntley that recommended GI eval since it will be easy for GI to see the patient while in the hospital in case if GI want to do any procedure that we can transition him on Heparin drip GI consulted for poss. endoscopy if pt can't be on AC, may need vascular surgery due to recent DVT in 10/25 to evaluate for IVF filter HX of DVT Right LE DVT on 10/22/21 while on coumadin with therapeutic INR He had a stroke while on Eliquis Anticoagulant was changed to Lovenox 80mg BID Outpatient documentation with hematology recommended to continue Lovenox retirement Check FOBT due to drop of Hgb , FOBT negative Type 2 diabetes mellitus: Hba1c back in August was 6.7 Continue Lantus and novolog sliding scale Continue monitor BS HTN (hypertension): BP was low at the Oncology office Received gentle IVF Continue to hold Amlodipine Continue Lisinopril 5mg Continue monitor BP Paroxysmal atrial fibrillation: rate controlled with Carvedilol Continue anticoagulant with Lovenox ( monitor h/h closely) Decubitus Ulcer continue daily wound care Wound care on board DVT ppx: scds, lovenox BID for now CODE: Full code Disposition PT/OT recommended inpatient rehab Admission and Anticipated Discharge Date Admission Date: December 19, 2021 Subjective Pt was seen and examined for follow up of syncope and low BP Lying in bed with no acute distress Hgb 6.9 today. Consent for blood transfusion which was obtained with pt and patient's . 1 unit of PRBCs ordered. No evidence of blood in stool as per staff FOBT negative Pt denies any fevers, chills, chest pain, palpitation, dizziness or shortness of breath Patient's at the bedside, discussed recommendation for endoscopy. Also discussed this with [facility] at home physician over the phone with patient's . Review of Systems Review of Systems: All systems reviewed & are unremarkable except as noted in Subjective Physical Exam Physical Exam: General- No acute distress Head- atraumatic Eyes- PERRL, EOMI, ENT- oropharynx clear Neck- supple, no JVD Lungs- clear to auscultation Heart- regular rhythm; +systolic murmur Abdomen- normal bowel sounds, soft, nontender Extremities- no calf tenderness Neuro- alert, oriented; PERRL, EOMI; +slurred speech, +right sided hemiparesis Skin- warm & dry Results & Data Results & Data ([facility]) Vital Signs (Past 12 Hours) Vital Signs Temp Pulse Pulse Pulse Resp BP Pulse Ox 12/22/21 11:40 37 C 88 20 143/83 H 98 12/22/21 08:00 81 12/22/21 08:00 12/22/21 08:08 36.5 C 81 18 118/72 99 12/22/21 03:03 36.5 C 80 16 148/80 H 98 O2 Del Method 12/22/21 11:40 Room Air 12/22/21 08:00 12/22/21 08:00 Room Air 12/22/21 08:08 Room Air 12/22/21 03:03 Room Air Laboratory Results 12/22/21 12/22/21 12/22/21 Range/Units 12:30 11:40 11:40 WBC 5.66 (4.8-10.8) K/ul RBC 3.10 L (4.63-6.08) M/uL Hgb 6.9 L* (14.0-18.0) g/dl Hct 23.2 L (40.1-51.0) % MCV 74.8 L (80.0-100.0) fL MCH 22.3 L (25.0-34.0) pg MCHC 29.7 L (32.0-36.0) g/dL RDW Std Deviation 47.4 H (36.4-46.3) fL RDW Coeff of Caroline 17.9 H (11.5-14.5) % Plt Count 202 (130-400) K/uL MPV 12.4 (9.4-12.4) fL Sodium 134 L (136-145) mmol/L Potassium 3.7 (3.5-5.1) mmol/L Chloride 103 (98-107) mmol/L Carbon Dioxide 26 (21-32) mmol/L Anion Gap 5 (3-11) BUN 11 (6-23) mg/dl Creatinine 0.48 L (0.6-1.4) mg/dl Est Cr Clr Drug Dosing 167.8 ml/min Est GFR ( Amer) 135.9 ml/min Est GFR (Non-Af Amer) 117.3 ml/min BUN/Creatinine Ratio 22.9 H (10-20) Glucose 197 H (70-99(Fasting)) mg/dl POC Glucose (70-99) mg/dl Calcium 7.6 L (8.5-10.1) mg/dl Phosphorus 2.8 (2.5-4.9) mg/dl Magnesium 1.3 L (1.7-2.4) mg/dl Stool Occult Bld Scrn Negative 12/22/21 12/22/21 12/21/21 Range/Units 11:32 07:29 20:06 WBC (4.8-10.8) K/ul RBC (4.63-6.08) M/uL Hgb (14.0-18.0) g/dl Hct (40.1-51.0) % MCV (80.0-100.0) fL MCH (25.0-34.0) pg MCHC (32.0-36.0) g/dL RDW Std Deviation (36.4-46.3) fL RDW Coeff of Caroline (11.5-14.5) % Plt Count (130-400) K/uL MPV (9.4-12.4) fL Sodium (136-145) mmol/L Potassium (3.5-5.1) mmol/L Chloride (98-107) mmol/L Carbon Dioxide (21-32) mmol/L Anion Gap (3-11) BUN (6-23) mg/dl Creatinine (0.6-1.4) mg/dl Est Cr Clr Drug Dosing ml/min Est GFR ( Amer) ml/min Est GFR (Non-Af Amer) ml/min BUN/Creatinine Ratio (10-20) Glucose (70-99(Fasting)) mg/dl POC Glucose 203 H 144 H 199 H (70-99) mg/dl Calcium (8.5-10.1) mg/dl Phosphorus (2.5-4.9) mg/dl Magnesium (1.7-2.4) mg/dl Stool Occult Bld Scrn 12/21/21 12/21/21 12/21/21 Range/Units 17:17 16:07 11:00 WBC (4.8-10.8) K/ul RBC (4.63-6.08) M/uL Hgb 7.5 L (14.0-18.0) g/dl Hct 25.4 L (40.1-51.0) % MCV (80.0-100.0) fL MCH (25.0-34.0) pg MCHC (32.0-36.0) g/dL RDW Std Deviation (36.4-46.3) fL RDW Coeff of Caroline (11.5-14.5) % Plt Count (130-400) K/uL MPV (9.4-12.4) fL Sodium (136-145) mmol/L Potassium (3.5-5.1) mmol/L Chloride (98-107) mmol/L Carbon Dioxide (21-32) mmol/L Anion Gap (3-11) BUN (6-23) mg/dl Creatinine (0.6-1.4) mg/dl Est Cr Clr Drug Dosing ml/min Est GFR ( Amer) ml/min Est GFR (Non-Af Amer) ml/min BUN/Creatinine Ratio (10-20) Glucose (70-99(Fasting)) mg/dl POC Glucose 227 H (70-99) mg/dl Calcium (8.5-10.1) mg/dl Phosphorus (2.5-4.9) mg/dl Magnesium (1.7-2.4) mg/dl Stool Occult Bld Scrn Cancelled Medications Administered Current Inpatient Medications Acetaminophen (Acetaminophen 325 Mg Tab) 650 mg PO Q4H PRN PRN Reason: Moderate Pain Stop: 01/16/22 17:22 Amlodipine Besylate (A[facility]odipine Besylate 5 Mg Tab) [facility] [place]: 01/17/22 08:59 Aspirin (Aspirin 81 Mg Ectab) 81 [facility] [place] Stop: 01/17/22 08:59 Last Admin: 12/22/21 08:35 Dose: 81 mg Atorvastatin Calcium (Atorvastatin 40 Mg Tab) 80 mg PO QPM [facility] Stop: 01/16/22 20:59 Last Admin: 12/21/21 20:10 Dose: 80 mg Baclofen (Baclofen 10 Mg Tab) [facility] Stop: 01/17/22 08:59 Last Admin: 12/22/21 08:35 Dose: 5 mg Carvedilol (Carvedilol 12.5 Mg Tab) 12.5 mg PO BID [facility] Stop: 01/16/22 20:59 Last Admin: 12/22/21 08:34 Dose: 12.5 mg Clopidogrel Bisulfate (Clopidogrel Bisulfate 75 Mg Tab) 75 mg PO [facility] Stop: 01/17/22 08:59 Last Admin: 12/22/21 08:35 Dose: 75 mg Dextrose (Dextrose 50% 50 Ml Syringe) 25 - 50 ml IV UD PRN; Protocol PRN Reason: Hypoglycemia Protocol Stop: 01/16/22 16:16 Enoxaparin Sodium (Enoxaparin 80 Mg/0.8 Ml Syr) 80 mg SQ [facility] Stop: 01/16/22 20:59 Last Admin: 12/22/21 08:34 Dose: 80 mg Ferrous Sulfate (Ferrous Sulfate 325 Mg Tab) 325 [facility] Stop: 01/19/22 08:59 Last Admin: 12/22/21 08:35 Dose: 325 mg Glucagon (Glucagon For Inj 1 Mg Vial) 1 mg SQ UD PRN; Protocol PRN Reason: Hypoglycemia Protocol Stop: 01/16/22 16:16 Glucose (Glucose 40% Gel 15 Gm Tube) 15 - 30 gm PO UD PRN; Protocol PRN Reason: Hypoglycemia Protocol Stop: 01/16/22 16:16 Glucose (Glucose 10 Tab/Tube) 4 - 8 tab PO UD PRN; Protocol PRN Reason: Hypoglycemia Treatment Stop: 01/16/22 16:16 Magnesium Sulfate/Dextrose (Magnesium Sulfate / D5w) 1 gm in 100 mls @ 50 mls/hr IV ONE ONE Stop: 12/22/21 14:40 Last Admin: 12/22/21 12:58 Dose: 50 mls/hr Sodium Chloride (Nss) 250 mls @ 15 mls/hr IV .[id number] PRN PRN Reason: For Transfusion Stop: 12/23/21 00:24 Insulin Aspart (Insulin Aspart Per Unit) 0 units SC ACHS [facility] Stop: 01/16/22 16:29 Last Admin: 12/22/21 12:28 Dose: 5 units Insulin Glargine (Lantus Per Unit Charge) 14 units SQ QAM [facility] Stop: 01/16/22 08:59 Last Admin: 12/22/21 08:34 Dose: 14 units Insulin Glargine (Lantus Per Unit Charge) 10 units SQ QPM [facility] Stop: 01/16/22 20:59 Last Admin: 12/21/21 20:12 Dose: 10 units Lisinopril (Lisinopril 5 Mg Tab) 5 mg PO DAILY [facility] Stop: 01/17/22 08:59 Last Admin: 12/22/21 08:35 Dose: 5 mg Miscellaneous (Carbohydrates For Hypoglycemia ) 15 - 30 gm PO UD PRN PRN Reason: Hypoglycemia Protocol Stop: 01/16/22 16:16 Ondansetron HCl (Ondansetron Inj 2 Mg/Ml 2 Ml Vial) 4 mg IV Q4H PRN PRN Reason: Nausea And Vomiting Stop: 01/16/22 17:22 Tamsulosin HCl (Tamsulosin Hcl 0.4 Mg Cap) 0.4 mg PO HS [facility] Stop: 01/16/22 20:59 Last Admin: 12/21/21 20:10 Dose: 0.4 mg
[2021-12-22] MEDS: ATORVASTATIN 40 MG TAB PO SCH (20:39)
[2021-12-22] MEDS: TAMSULOSIN HCL 0.4 MG CAP PO SCH (20:45)
[2021-12-23 07:18] LABS: BUN Creatinine Ratio 22.2 (10-20); Calcium 7.6 mg/dl (8.5-10.1); Est GFR (African American) 139.6 ml/min; Est GFR (Non-African American) 120.4 ml/min; Magnesium 1.4 mg/dl (1.7-2.4); Phosphorus 2.9 mg/dl (2.5-4.9); Potassium 3.6 mmol/L (3.5-5.1)
[2021-12-23 07:51] LABS: Hematocrit (blood only) 27.2 % (40.1-51.0); Hemoglobin 8.3 g/dl (14.0-18.0)
[2021-12-23] MEDS: INSULIN ASPART PER UNIT SC SCH ×4 (07:52→20:21)
[2021-12-23] MEDS ORDERED: MAGNESIUM SULFATE / D5W 1 GM/100 ML BAG IV ONE (09:05)
--- NOTE | 2021-12-23 09:24 | Communication Note ---
Date of Service: December 23, 2021 Pt was seen, chart reviewed, at bedside. He is NPO for EGD this AM. No complaints address. Brown stools continue to be documented which are heme negati ve. S/P 1 unit RBC with HGB 8.3 this AM w/ normal BUN. Encouraged to remain NPO for EGD this AM. Pending results will discuss colonoscopy with patient and . Thank you for allowing us to participate in the care of this patient. Please call with any acute changes, questions or concerns. Please see addendum below with additional recommendation from my supervising physician.
--- NOTE | 2021-12-23 12:50 | Anesthesiology Consultation ---
Date of Service December 23, 2021 Assessment & Plan Chart Review Chart Review: Acceptable Risk for Surgery and Patient NOT seen in Pre Admission Testing Consults Requested none ASA ASA4 Proposed Anesthesia Anesthesia Type: MAC History Height/Weight Height: 5 ft 11 in Weight: 85.5 kg Allergies Allergy/AdvReac Type Severity Reaction Status Date / Time No Known Allergies Allergy Verified 12/17/21 15:21 Medications Home Medications Medication Instructions Recorded Confirmed Last Taken nitroglycerin 0.4 mg sublingual 0.4 mg sublingual DIRECTED PRN 08/09/19 12/17/21 12/17/21 08:00 tablet Chest Pain amlodipine 5 mg tablet (Norvasc) 5 mg PO QAM #30 tabs 09/22/20 12/17/21 12/17/21 08:00 aspirin 81 mg tablet,delayed 81 mg PO QAM #30 tabs 09/22/20 12/17/21 12/17/21 08:00 release baclofen 5 mg tablet 5 mg PO QAM #30 tabs 09/22/20 12/17/21 12/17/21 08:00 carvedilol 12.5 mg tablet 12.5 mg PO BID #60 tabs 09/22/20 12/17/21 12/17/21 08:00 clopidogrel 75 mg tablet (Plavix) 75 mg PO QAM #30 tabs 09/22/20 12/17/21 12/17/21 08:00 insulin glargine 100 unit/mL See Rx Instructions .Route 09/22/20 12/17/21 12/17/21 08:00 subcutaneous solution (Lantus .COMPLEX #10 mL U-100 Insulin) insulin aspart U-100 100 unit/mL 10 unit subcut AC 01/11/21 12/17/21 12/17/21 12:00 subcutaneous solution (Novolog U-100 Insulin aspart) tamsulosin 0.4 mg capsule 0.4 mg PO HS 01/11/21 12/17/21 12/17/21 08:00 atorvastatin 80 mg tablet 80 mg PO QPM 05/17/21 12/17/21 Unknown lisinopril 10 mg tablet 5 mg PO DAILY #0 tabs 08/25/21 12/17/21 12/17/21 08:00 enoxaparin 80 mg/0.8 mL 0.8 ml subcut [facility] 12/17/21 12/17/21 12/17/21 07:00 subcutaneous syringe metformin 500 mg tablet 500 mg PO BID 12/17/21 12/18/21 12/17/21 08:00 Active Medications Generic Name Dose Route Start Last Admin Trade Name [place] PRN Reason Stop Dose Admin Aspirin 81 mg 12/18/21 09:00 12/22/21 08:35 Aspirin 81 Mg Ectab PO 01/17/22 08:59 81 mg QAM SUMA Administration Atorvastatin Calcium 80 mg 12/17/21 21:00 12/22/21 20:39 Atorvastatin 40 Mg Tab PO 01/16/22 20:59 80 mg QPM SUMA Administration Baclofen 5 mg 12/18/21 09:00 12/22/21 08:35 Baclofen 10 Mg Tab PO 01/17/22 08:59 5 mg QAM SUMA Administration Carvedilol 12.5 mg 12/17/21 21:00 12/22/21 20:39 Carvedilol 12.5 Mg Tab PO 01/16/22 20:59 12.5 mg BID SUMA Administration Clopidogrel Bisulfate 75 mg 12/18/21 09:00 12/22/21 08:35 Clopidogrel Bisulfate 75 Mg Tab PO 01/17/22 08:59 75 mg QAM SUMA Administration Enoxaparin Sodium 80 mg 12/17/21 21:00 12/22/21 20:16 Enoxaparin 80 Mg/0.8 Ml Syr SQ 01/16/22 20:59 Not Given [facility] Ferrous Sulfate 325 mg 12/20/21 09:00 12/22/21 08:35 Ferrous Sulfate 325 Mg Tab PO 01/19/22 08:59 325 mg QAM SUMA Administration Insulin Aspart 0 units 12/17/21 16:30 12/23/21 07:52 Insulin Aspart Per Unit SC 01/16/22 16:[address] [facility] Insulin Glargine 14 units 12/17/21 09:00 12/22/21 08:34 Lantus Per Unit Charge SQ 01/16/22 08:59 14 units QAM SUMA Administration Insulin Glargine 10 units 12/17/21 21:00 12/22/21 21:04 Lantus Per Unit Charge SQ 01/16/22 20:59 10 units QPM SUMA Administration Lisinopril 5 mg 12/18/21 09:00 12/22/21 08:35 Lisinopril 5 Mg Tab PO 01/17/22 08:59 5 mg DAILY SUMA Administration Tamsulosin HCl 0.4 mg 12/17/21 21:00 12/22/21 20:45 Tamsulosin Hcl 0.4 Mg Cap PO 01/16/22 20:59 0.4 mg HS SUMA Administration Past Medical History Medical History 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" Aortic valve stenosis BPH with obstruction/lower urinary tract symptoms CAD (coronary artery disease) Carotid stenosis Diabetic peripheral neuropathy associated with type 2 diabetes mellitus Dyslipidemia Hemiplegia affecting right dominant side History of CVA (cerebrovascular accident) History of pancreatitis HTN (hypertension) Hypomagnesemia Monoplegia affecting right dominant side Obesity Osteomyelitis of [place] of right foot Proliferative diabetic retinopathy Retinal edema Right foot drop Status post cerebrovascular accident Status post myocardial infarction Superior mesenteric artery stenosis Type 2 diabetes mellitus Exercise / Class Metabolic Activity IV < 2 Limit ADL/Bedbound Past Family History Family History Father Heart disease Past Surgical History Surgical History Hx of vitrectomy S/P angioplasty with stent S/P CABG x 3 S/P PTCA (percutaneous transluminal coronary angioplasty) Past Anesthesia History No Hx of Anesthesia Complications and No Family Hx of Anesthesia Complications History of PONV No Hx of PONV and No Hx of Motion Sickness Social History Smoking Status: Former smoker tobacco type: cigarettes Do You Dip or Chew Tobacco: No Hx Alcohol Use: No Alcohol type: beer alcohol intake frequency: a few times a month Hx Substance Use: No substance use type: does not use Physical Exam Vital Signs Last Vital Signs Temp 36.6 C 12/23/21 11:31 Pulse 81 12/23/21 11:31 Resp 16 12/23/21 11:31 BP 156/79 H 12/23/21 11:31 Pulse Ox 98 12/23/21 11:31 O2 Del Method 12/23/21 11:31 Testing Laboratory Results 12/23/21 06:36 12/23/21 06:28 PT 13.7 Seconds (9.0-12.0) H 12/17/21 13:06 INR 1.3 (0.9-1.1) H 12/17/21 13:06 Urine Color Yellow 12/18/21 02:19 Urine Appearance Clear (Clear) 12/18/21 02:19 Urine pH 5.0 (4.5-7.5) 12/18/21 02:19 Ur Specific [place] 1.029 (1.000-1.030) 12/18/21 02:19 Urine Protein Trace (Negative) H 12/18/21 02:19 Urine Glucose (UA) Negative (Negative) 12/18/21 02:19 Urine Ketones Negative (Negative) 12/18/21 02:19 Urine Nitrite Negative (Negative) 12/18/21 02:19 Ur Leukocyte Esterase Trace (Negative) H 12/18/21 02:19 Urine WBC (Auto) 5-10 /hpf (0-5) H 12/18/21 02:19 Urine RBC (Auto) 0-4 /hpf (0-4) 12/18/21 02:19 U Hyaline Cast (Auto) 1-5 /lpf (0-5) 12/18/21 02:19 U Epithel Cells (Auto) 20-30 /lpf (0-5) H 12/18/21 02:19 Urine Bacteria (Auto) Negative (Negative) 12/18/21 02:19 Blood Type A Positive 12/22/21 14:41 Antibody Screen NEGATIVE 12/22/21 14:41 12/23/21 12/23/21 11:34 07:45 POC Glucose 185 H 160 H Electrocardiogram Date: 12/18/21 Findings: + pertinent finding (unusual P axis @ 75;possible atrial ectopic rhythm;inerior infarct,age?;anterolateral infarct,age ?) Chest X-Ray Date: 12/17/21 Findings: + NAD, + cardiomegaly and + atherosclerosis of thoracic aorta Echocardiogram Date: 12/18/21 EF: 65% LV Function: normal RWMA: + akinetic (small apical area w/ thinning myocardium and akinesis) Other Findings: + LVH (severe) and + diastolic dysfunction (grade 1) Valvular Disease: + (severe )
--- NOTE | 2021-12-23 13:12 | History & Physical Bridge Note ---
Date of Service December 23, 2021 History & Physical Bridge Note I have examined the patient, reviewed the History & Physical and in the interval since the performance of the History & Physical I have noted the following changes of clinical significance: no changes noted. Upper endoscopy has been requested by the hospital service for evaluation of this patient's anemia. The patient's and I did discuss the procedure at great length today, consent was signed. Risks include bleeding infection perforation pain and need for follow-up studies.
[2021-12-23] MEDS ORDERED: ePHEDrine sulfate 50 MG/ML AMP IV PRN (13:15)
[2021-12-23] MEDS ORDERED: ATROPINE SULFATE 0.1 MG/ML 10ML SYR IV PRN (13:15)
[2021-12-23] MEDS ORDERED: fentaNYL citrate 100 MCG/2 ML VIAL ONE (13:21)
[2021-12-23] MEDS: carvediloL 12.5 MG TAB PO SCH ×2 (13:23→20:18)
--- NOTE | 2021-12-23 13:43 | GI REPORT ---
Patient Name: Deja Turner Procedure Date: 12/23/2021 1:11 PM Date of : 1960 Admit Type: Inpatient Age: 61 Gender: Male Attending MD: Foreign Devlin DO Procedure: Upper GI endoscopy Providers: Foreign Devlin DO Referring MD: Marcus Pike Md Indications: Unexplained iron deficiency anemia Medicines: Monitored Anesthesia Care Complications: No immediate complications. Estimated blood loss: Minimal. Estimated Blood Loss: Estimated blood loss was minimal. Procedure: Pre-Anesthesia Assessment: - Prior to the procedure, a History and Physical was performed, and patient medications, allergies and sensitivities were reviewed. The patient's tolerance of previous anesthesia was reviewed. - The risks and benefits of the procedure and the sedation options and risks were discussed with the patient. All questions were answered and informed consent was obtained. - Patient identification and proposed procedure were verified prior to the procedure by the physician, the nurse and the fittings tightener. The procedure was verified in the procedure room. - Pre-procedure physical examination revealed no contraindications to sedation. - ASA Grade Assessment: IV - A patient with severe systemic disease that is a constant threat to life. - After reviewing the risks and benefits, the patient was deemed in satisfactory condition to undergo the procedure. - The anesthesia plan was to use monitored anesthesia care (MAC). - Immediately prior to administration of medications, the patient was re-assessed for adequacy to receive sedatives. - The heart rate, respiratory rate, oxygen saturations, blood pressure, adequacy of pulmonary ventilation, and response to care were monitored throughout the procedure. - The physical status of the patient was re-assessed after the procedure. After obtaining informed consent, the endoscope was passed under direct vision. Throughout the procedure, the patient's blood pressure, pulse, and oxygen saturations were monitored continuously. The Endoscope was introduced through the mouth, and advanced to the third part of duodenum. The upper GI endoscopy was accomplished without difficulty. The patient tolerated the procedure well. Findings: The examined esophagus was normal. The entire examined stomach was normal. The examined duodenum was normal. Impression: - Normal esophagus. - Normal stomach. - Normal examined duodenum. - No specimens collected. Recommendation: - Return patient to [facility] for ongoing care. -A colonoscopy could be considered, the patient is likely not to tolerate prep very well. Foreign Devlin D.O. Foreign Devlin, DO 12/23/2021 1:42:35 PM This report has been signed electronically. Note Initiated On: 12/23/2021 1:11 PM Number of Addenda: 0 I attest to the content of the Intraoperative Record and orders documented therein, exceptions below {[id number]}
--- NOTE | 2021-12-23 13:48 | Communication Note ---
Date of Service: December 23, 2021 The patient underwent an upper endoscopy today for evaluation of anemia. The examination was notable for normal upper gastric tract. Given the patient's present medical problems and physical capacity I do not think he would be able to do a bowel preparation would therefore not recommend a repeat colonoscopy at the present time. As the patient is Hemoccult negative the source of his anemia is unlikely to be GI in nature. Please call with any questions or concerns GI to sign off
[2021-12-23] MEDS ORDERED: PROPOFOL IV EMULSION 10 MG/ML 20 ML VIAL IV ONE (13:50)
[2021-12-23] MEDS ORDERED: PHENYLEPHRINE 100MCG/ML 5ML SYR ONE (13:50)
[2021-12-23] MEDS ORDERED: LIDOCAINE 2% MPF LOCAL 5 ML VIAL INFIL ONE (13:50)
--- NOTE | 2021-12-23 14:28 | Anesthesiology Progress Note ---
Date of Service December 23, 2021 Anesthesia Post Procedure Vital Signs Vital Signs: Temp Pulse Pulse Resp BP BP Pulse Ox 12/23/21 14:10 73 16 130/61 96 12/23/21 13:59 73 16 118/64 94 12/23/21 13:46 70 16 121/56 L 94 12/23/21 13:08 36.0 C L 77 16 144/64 H 97 12/23/21 11:31 36.6 C 81 16 156/79 H 98 12/23/21 07:46 36.7 C 73 15 149/79 H 98 12/23/21 04:20 36.6 C 84 18 144/74 H 96 12/23/21 03:57 84 12/22/21 20:30 36.7 C 84 16 159/73 H 97 12/23/21 02:03 36.7 C 84 16 159/73 H 97 12/23/21 00:01 12/22/21 22:17 36.7 C 84 18 159/73 H 97 12/22/21 19:30 36.6 C 80 18 164/79 H 99 12/22/21 19:30 36.9 C 77 16 135/75 98 12/22/21 18:30 37 C 76 18 101/66 98 12/22/21 17:45 36.7 C 77 16 121/74 97 12/22/21 17:39 37 C 83 20 114/71 97 12/22/21 17:26 36.8 C 79 18 142/79 H 97 12/22/21 15:57 36.8 C 72 18 126/76 97 12/22/21 15:33 63 O2 Del Method 12/23/21 14:10 Room Air 12/23/21 13:59 Room Air 12/23/21 13:46 Room Air 12/23/21 13:08 Room Air 12/23/21 11:31 Room Air 12/23/21 07:46 Room Air 12/23/21 04:20 Room Air 12/23/21 03:57 12/22/21 20:30 12/23/21 02:03 12/23/21 00:01 Room Air 12/22/21 22:17 Room Air 12/22/21 19:30 12/22/21 19:30 12/22/21 18:30 12/22/21 17:45 12/22/21 17:39 07/19/22 17:26 12/22/21 15:57 Room Air 12/22/21 15:33 Transfer of Care Handoff Completed per policy Notes Mental Status: alert / awake / arousable Patient Amnestic to Procedure: Yes Nausea / Vomiting: adequately controlled Pain: adequately controlled Airway Patency, RR, SpO2: stable & adequate BP & HR: stable & adequate Hydration State: stable & adequate Anesthetic Complications: no major complications apparent
[2021-12-23] MEDS: FERROUS SULFATE 325 MG TAB PO SCH (14:46)
[2021-12-23] MEDS: BACLOFEN 10 MG TAB PO SCH (14:46)
[2021-12-23] MEDS: lisinopril 5 MG TAB PO SCH (15:41)
[2021-12-23] MEDS: CLOPIDOGREL BISULFATE 75 MG TAB PO SCH (15:41)
[2021-12-23] MEDS: LANTUS PER UNIT CHARGE SQ SCH ×2 (15:42→20:22)
[2021-12-23] MEDS: ENOXAPARIN 80 MG/0.8 ML SYR SQ SCH ×2 (15:43→20:18)
--- NOTE | 2021-12-23 16:46 | Hospitalist Progress Note ---
Date of Service December 23, 2021 Assessment & Plan (1) Syncopal episodes: (2) History of CVA (cerebrovascular accident): (3) CAD (coronary artery disease): (4) Aortic valve stenosis: (5) Hypomagnesemia: (6) HTN (hypertension): (7) Type 2 diabetes mellitus: (8) DVT (deep venous thrombosis): Plan: Presented to the ED after sending from Oncology clinic for syncope and Low BP Syncope Possible related to low BP and dehydration received IV fluid with BP improved Amlodipine placed on hold Repeat echocardiogram demonstrating stable borderline severe aortic valve stenosis with concentric left ventricular hypertrophy and hyperdynamic LV function. tele monitor showed no arrhythmia Cardiology consulted - recommended if BP starts to increase while off the amlodipine to increase the Carvedilol Continue monitor closely History of CVA (cerebrovascular accident): CAD Continue Plavix, Lovenox, Lipitor (hold ASA, discussed w/ cardiology and hem/onc) Anemia Hgb dropped to 6.9 (12/22) 1 unit of pRBC ordered No sign of active bleeding FOBT negative case discussed with hematology dr. Huntley that recommended GI eval since it will be easy for GI to see the patient while in the hospital in case if GI want to do any procedure that we can transition him on Heparin drip GI consulted for poss. endoscopy Now s/p EGD (12/23) Findings: The examined esophagus was normal. The entire examined stomach was normal. The examined duodenum was normal. Impression: - Normal esophagus. - Normal stomach. - Normal examined duodenum. - No specimens collected. Recommendation: - Return patient to [facility] for ongoing care. -A colonoscopy could be considered, the patient is likely not to tolerate prep very well. if pt can't be on AC, may need vascular surgery due to recent DVT in 10/25 to evaluate for IVF filter Discussed w/ Dr. Huntley, no need for IVC filter at this time HX of DVT Right LE DVT on 10/22/21 while on coumadin with therapeutic INR He had a stroke while on Eliquis Anticoagulant was changed to Lovenox 80mg BID Outpatient documentation with hematology recommended to continue Lovenox intermediate Check FOBT due to drop of Hgb , FOBT negative Type 2 diabetes mellitus: Hba1c back in August was 6.7 Continue Lantus and novolog sliding scale Continue monitor BS HTN (hypertension): BP was low at the Oncology office Received gentle IVF Continue to hold Amlodipine Continue Lisinopril 5mg Continue monitor BP Paroxysmal atrial fibrillation: rate controlled with Carvedilol Continue anticoagulant with Lovenox ( monitor h/h closely) Decubitus Ulcer Pressure-induced deep tissue injury of right buttock & unstageable pressure ulcer to coccyx both POA continue daily wound care Wound care on board DVT ppx: lovenox BID CODE: Full code Disposition PT/OT recommended inpatient rehab Admission and Anticipated Discharge Date Admission Date: December 19, 2021 Subjective Pt was seen and examined for follow up of syncope and low BP Lying in bed in no acute distress Hgb 6.9 yesterday. Consent for blood transfusion which was obtained with pt and patient's . 1 unit of PRBCs ordered. No evidence of blood in stool as per staff FOBT negative Patient underwent EGD today. Pt denies any fevers, chills, chest pain, palpitation, dizziness or shortness of breath Patient's updated at bedside Review of Systems Review of Systems: All systems reviewed & are unremarkable except as noted in Subjective Physical Exam Physical Exam: General- No acute distress Head- atraumatic Eyes- PERRL, EOMI, ENT- oropharynx clear Neck- supple, no JVD Lungs- clear to auscultation Heart- regular rhythm; +systolic murmur Abdomen- normal bowel sounds, soft, nontender Extremities- no calf tenderness Neuro- alert, oriented; PERRL, EOMI; +slurred speech, +right sided hemiparesis Skin- warm & dry Results & Data Results & Data ([facility]) Vital Signs (Past 12 Hours) Vital Signs Temp Pulse Resp BP Pulse Ox O2 Del Method 12/23/21 14:42 36.8 C 72 16 148/69 H 98 Room Air 12/23/21 14:10 73 16 130/61 96 Room Air 12/23/21 13:59 73 16 118/64 94 Room Air 12/23/21 13:46 70 16 121/56 L 94 Room Air 12/23/21 13:08 36.0 C L 77 16 144/64 H 97 Room Air 12/23/21 11:31 36.6 C 81 16 156/79 H 98 Room Air 12/23/21 07:46 36.7 C 73 15 149/79 H 98 Room Air Laboratory Results 12/23/21 12/23/21 12/23/21 Range/Units 16:00 11:34 07:45 Hgb (14.0-18.0) g/dl Hct (40.1-51.0) % Sodium (136-145) mmol/L Potassium (3.5-5.1) mmol/L Chloride (98-107) mmol/L Carbon Dioxide (21-32) mmol/L Anion Gap (3-11) BUN (6-23) mg/dl Creatinine (0.6-1.4) mg/dl Est Cr Clr Drug Dosing ml/min Est GFR ( Amer) ml/min Est GFR (Non-Af Amer) ml/min BUN/Creatinine Ratio (10-20) Glucose (70-99(Fasting)) mg/dl POC Glucose 185 H 185 H 160 H (70-99) mg/dl Calcium (8.5-10.1) mg/dl Phosphorus (2.5-4.9) mg/dl Magnesium (1.7-2.4) mg/dl Blood Type Blood Type Recheck Antibody Screen Crossmatch 12/23/21 12/23/21 12/22/21 Range/Units 06:36 06:28 20:20 Hgb 8.3 L (14.0-18.0) g/dl Hct 27.2 L (40.1-51.0) % Sodium 136 (136-145) mmol/L Potassium 3.6 (3.5-5.1) mmol/L Chloride 104 (98-107) mmol/L Carbon Dioxide 27 (21-32) mmol/L Anion Gap 5 (3-11) BUN 10 (6-23) mg/dl Creatinine 0.45 L (0.6-1.4) mg/dl Est Cr Clr Drug Dosing 179.0 ml/min Est GFR ( Amer) 139.6 ml/min Est GFR (Non-Af Amer) 120.4 ml/min BUN/Creatinine Ratio 22.2 H (10-20) Glucose 160 H (70-99(Fasting)) mg/dl POC Glucose 211 H (70-99) mg/dl Calcium 7.6 L (8.5-10.1) mg/dl Phosphorus 2.9 (2.5-4.9) mg/dl Magnesium 1.4 L (1.7-2.4) mg/dl Blood Type Blood Type Recheck Antibody Screen Crossmatch 12/22/21 12/22/21 12/22/21 Range/Units 16:39 16:13 14:41 Hgb (14.0-18.0) g/dl Hct (40.1-51.0) % Sodium (136-145) mmol/L Potassium (3.5-5.1) mmol/L Chloride (98-107) mmol/L Carbon Dioxide (21-32) mmol/L Anion Gap (3-11) BUN (6-23) mg/dl Creatinine (0.6-1.4) mg/dl Est Cr Clr Drug Dosing ml/min Est GFR ( Amer) ml/min Est GFR (Non-Af Amer) ml/min BUN/Creatinine Ratio (10-20) Glucose (70-99(Fasting)) mg/dl POC Glucose 199 H (70-99) mg/dl Calcium (8.5-10.1) mg/dl Phosphorus (2.5-4.9) mg/dl Magnesium (1.7-2.4) mg/dl Blood Type A Positive Blood Type Recheck A Positive Antibody Screen NEGATIVE Crossmatch See Detail Medications Administered Current Inpatient Medications Acetaminophen (Acetaminophen 325 Mg Tab) 650 mg PO Q4H PRN PRN Reason: Moderate Pain Stop: 01/16/22 17:22 Amlodipine Besylate (A[facility]ip[facility]ylate 5 Mg Tab) [facility] [place]: 01/17/22 08:59 Aspirin (Aspirin 81 Mg Ectab) 81 mg PO QAM [facility] Stop: 01/17/22 08:59 Last Admin: 12/22/21 08:35 Dose: 81 mg Atorvastatin Calcium (Atorvastatin 40 Mg Tab) 80 mg PO QPM [facility] Stop: 01/16/22 20:59 Last Admin: 12/22/21 20:39 Dose: 80 mg Atropine Sulfate (Atropine Sulfate 0.1 Mg/Ml 10ml Syr) 0.5 mg IV Q1M PRN PRN Reason: PACU Use-HR<40 &/or Bradycardi Stop: 12/23/21 21:15 Baclofen (Baclofen 10 Mg Tab) 5 mg PO QAM [facility] Stop: 01/17/22 08:59 Last Admin: 12/23/21 14:46 Dose: Not Given Carvedilol (Carvedilol 12.5 Mg Tab) 12.5 mg PO BID [facility] Stop: 01/16/22 20:59 Last Admin: 12/23/21 13:23 Dose: Not Given Clopidogrel Bisulfate (Clopidogrel Bisulfate 75 Mg Tab) 75 mg PO QAM [facility] Stop: 01/17/22 08:59 Last Admin: 12/23/21 15:41 Dose: 75 mg Dextrose (Dextrose 50% 50 Ml Syringe) 25 - 50 ml IV UD PRN; Protocol PRN Reason: Hypoglycemia Protocol Stop: 01/16/22 16:16 Enoxaparin Sodium (Enoxaparin 80 Mg/0.8 Ml Syr) 80 mg SQ AMHS [facility] Stop: 01/16/22 20:59 Last Admin: 12/23/21 15:43 Dose: Not Given Ephedrine Sulfate (Ephedrine Sulfate 50 Mg/Ml Amp) 5 mg IV Q5M PRN PRN Reason: PACU Use Only-SBP<90 mmHg Stop: 12/23/21 21:15 Ferrous Sulfate (Ferrous Sulfate 325 Mg Tab) 325 mg PO QAM [facility] Stop: 01/19/22 08:59 Last Admin: 12/23/21 14:46 Dose: Not Given Glucagon (Glucagon For Inj 1 Mg Vial) 1 mg SQ UD PRN; Protocol PRN Reason: Hypoglycemia Protocol Stop: 01/16/22 16:16 Glucose (Glucose 40% Gel 15 Gm Tube) 15 - 30 gm PO UD PRN; Protocol PRN Reason: Hypoglycemia Protocol Stop: 01/16/22 16:16 Glucose (Glucose 10 Tab/Tube) 4 - 8 tab PO UD PRN; Protocol PRN Reason: Hypoglycemia Treatment Stop: 01/16/22 16:16 Insulin Aspart (Insulin Aspart Per Unit) 0 units SC ACHS [facility] Stop: 01/16/22 16:29 Last Admin: 12/23/21 13:23 Dose: Not Given Insulin Glargine (Lantus Per Unit Charge) 14 units SQ QAM [facility] Stop: 01/16/22 08:59 Last Admin: 12/23/21 15:42 Dose: Not Given Insulin Glargine (Lantus Per Unit Charge) 10 units SQ QPM [facility] Stop: 01/16/22 20:59 Last Admin: 12/22/21 21:04 Dose: 10 units Lisinopril (Lisinopril 5 Mg Tab) 5 mg PO DAILY [facility] Stop: 01/17/22 08:59 Last Admin: 12/23/21 15:41 Dose: 5 mg Magnesium Oxide (Magnesium Oxide 400 Mg Tab) 400 mg PO QAM SUMA Stop: 01/23/22 08:59 Miscellaneous (Carbohydrates For Hypoglycemia ) 15 - 30 gm PO UD PRN PRN Reason: Hypoglycemia Protocol Stop: 01/16/22 16:16 Ondansetron HCl (Ondansetron Inj 2 Mg/Ml 2 Ml Vial) 4 mg IV Q4H PRN PRN Reason: Nausea And Vomiting Stop: 01/16/22 17:22 Tamsulosin HCl (Tamsulosin Hcl 0.4 Mg Cap) 0.4 mg PO HS SUMA Stop: 01/16/22 20:59 Last Admin: 12/22/21 20:45 Dose: 0.4 mg
[2021-12-23] MEDS: TAMSULOSIN HCL 0.4 MG CAP PO SCH (20:18)
[2021-12-23] MEDS: ATORVASTATIN 40 MG TAB PO SCH (20:18)
[2021-12-24] MEDS: carvediloL 12.5 MG TAB PO SCH ×2 (08:23→20:25)
[2021-12-24] MEDS: FERROUS SULFATE 325 MG TAB PO SCH (08:23)
[2021-12-24] MEDS: BACLOFEN 10 MG TAB PO SCH (08:23)
[2021-12-24] MEDS: ENOXAPARIN 80 MG/0.8 ML SYR SQ SCH ×2 (08:24→20:21)
--- NOTE | 2021-12-24 08:55 | Hospitalist Progress Note ---
Date of Service December 24, 2021 Assessment & Plan (1) Syncopal episodes: (2) History of CVA (cerebrovascular accident): (3) CAD (coronary artery disease): (4) Aortic valve stenosis: (5) Hypomagnesemia: (6) HTN (hypertension): (7) Type 2 diabetes mellitus: (8) DVT (deep venous thrombosis): Plan: Presented to the ED after sending from Oncology clinic for syncope and Low BP Syncope Possible related to low BP and dehydration received IV fluid with BP improved Amlodipine placed on hold Repeat echocardiogram demonstrating stable borderline severe aortic valve stenosis with concentric left ventricular hypertrophy and hyperdynamic LV function. tele monitor showed no arrhythmia Cardiology consulted - recommended if BP starts to increase while off the amlodipine to increase the Carvedilol Continue monitor closely History of CVA (cerebrovascular accident): CAD Continue Plavix, Lovenox, Lipitor (hold ASA, discussed w/ cardiology and hem/onc) Anemia Hgb dropped to 6.9 (12/22) 1 unit of pRBC ordered No sign of active bleeding FOBT negative case discussed with hematology dr. Huntley that recommended GI eval since it will be easy for GI to see the patient while in the hospital in case if GI want to do any procedure that we can transition him on Heparin drip GI consulted for poss. endoscopy Now s/p EGD (12/23) Findings: The examined esophagus was normal. The entire examined stomach was normal. The examined duodenum was normal. Impression: - Normal esophagus. - Normal stomach. - Normal examined duodenum. - No specimens collected. Recommendation: - Return patient to [facility] for ongoing care. -A colonoscopy could be considered, the patient is likely not to tolerate prep very well. if pt can't be on AC, may need vascular surgery due to recent DVT in 10/25 to evaluate for IVF filter Discussed w/ Dr. Huntley, no need for IVC filter at this time 12/23 Hgb 8.3 12/24 Hgb 9.9 HX of DVT Right LE DVT on 10/22/21 while on coumadin with therapeutic INR He had a stroke while on Eliquis Anticoagulant was changed to Lovenox 80mg BID Outpatient documentation with hematology recommended to continue Lovenox fci Check FOBT due to drop of Hgb , FOBT negative Type 2 diabetes mellitus: Hba1c back in August was 6.7 Continue Lantus and novolog sliding scale Continue monitor BS HTN (hypertension): BP was low at the Oncology office Received gentle IVF Continue to hold Amlodipine Continue Lisinopril 5mg Continue monitor BP Paroxysmal atrial fibrillation: rate controlled with Carvedilol Continue anticoagulant with Lovenox ( monitor h/h closely) Decubitus Ulcer Pressure-induced deep tissue injury of right buttock & unstageable pressure ulcer to coccyx both POA continue daily wound care Wound care on board DVT ppx: lovenox BID CODE: Full code Disposition PT/OT recommended inpatient rehab Admission and Anticipated Discharge Date Admission Date: December 19, 2021 Subjective Pt was seen and examined for follow up of syncope and low BP Lying in bed in no acute distress Hgb8.3 yesterday after 1 unit of pRBC day prior Today Hgb 9 No evidence of blood in stool as per staff FOBT negative Patient underwent EGD yesterdayunremarkable. Pt denies any fevers, chills, chest pain, palpitation, dizziness or shortness of breath Review of Systems Review of Systems: All systems reviewed & are unremarkable except as noted in Subjective Physical Exam Physical Exam: General- No acute distress Head- atraumatic Eyes- PERRL, EOMI, ENT- oropharynx clear Neck- supple, no JVD Lungs- clear to auscultation Heart- regular rhythm; +systolic murmur Abdomen- normal bowel sounds, soft, nontender Extremities- no calf tenderness Neuro- alert, oriented; PERRL, EOMI; +slurred speech, +right sided hemiparesis Skin- warm & dry Results & Data Results & Data ([facility]) Vital Signs (Past 12 Hours) Vital Signs Temp Pulse Pulse Resp BP Pulse Ox O2 Del Method 12/24/21 07:57 36.5 C 87 18 138/77 98 Room Air 12/24/21 04:16 36.9 C 75 18 164/79 H 97 Room Air 12/23/21 23:25 36.7 C 74 16 163/75 H 98 Room Air 12/23/21 23:23 80 Laboratory Results 12/24/21 12/24/21 12/24/21 Range/Units 11:16 08:10 08:10 WBC 5.37 (4.8-10.8) K/ul RBC 4.26 L (4.63-6.08) M/uL Hgb 9.9 L (14.0-18.0) g/dl Hct 33.5 L (40.1-51.0) % MCV 78.6 L D (80.0-100.0) fL MCH 23.2 L (25.0-34.0) pg MCHC 29.6 L (32.0-36.0) g/dL RDW Std Deviation 56.1 H (36.4-46.3) fL RDW Coeff of Caroline 20.3 H (11.5-14.5) % Plt Count 305 D (130-400) K/uL MPV 11.7 (9.4-12.4) fL Sodium 136 (136-145) mmol/L Potassium 4.3 (3.5-5.1) mmol/L Chloride 101 (98-107) mmol/L Carbon Dioxide 30 (21-32) mmol/L Anion Gap 5 (3-11) BUN 9 (6-23) mg/dl Creatinine 0.53 L (0.6-1.4) mg/dl Est Cr Clr Drug Dosing 151.9 ml/min Est GFR ( Amer) 130.5 ml/min Est GFR (Non-Af Amer) 112.6 ml/min BUN/Creatinine Ratio 17.0 (10-20) Glucose 174 H (70-99(Fasting)) mg/dl POC Glucose 229 H (70-99) mg/dl Calcium 8.2 L (8.5-10.1) mg/dl Phosphorus 3.1 (2.5-4.9) mg/dl Magnesium 1.5 L (1.7-2.4) mg/dl 12/24/21 12/23/21 12/23/21 Range/Units 07:35 20:14 16:00 WBC (4.8-10.8) K/ul RBC (4.63-6.08) M/uL Hgb (14.0-18.0) g/dl Hct (40.1-51.0) % MCV (80.0-100.0) fL MCH (25.0-34.0) pg MCHC (32.0-36.0) g/dL RDW Std Deviation (36.4-46.3) fL RDW Coeff of Caroline (11.5-14.5) % Plt Count (130-400) K/uL MPV (9.4-12.4) fL Sodium (136-145) mmol/L Potassium (3.5-5.1) mmol/L Chloride (98-107) mmol/L Carbon Dioxide (21-32) mmol/L Anion Gap (3-11) BUN (6-23) mg/dl Creatinine (0.6-1.4) mg/dl Est Cr Clr Drug Dosing ml/min Est GFR ( Amer) ml/min Est GFR (Non-Af Amer) ml/min BUN/Creatinine Ratio (10-20) Glucose (70-99(Fasting)) mg/dl POC Glucose 160 H 204 H 185 H (70-99) mg/dl Calcium (8.5-10.1) mg/dl Phosphorus (2.5-4.9) mg/dl Magnesium (1.7-2.4) mg/dl Medications Administered Current Inpatient Medications Acetaminophen (Acetaminophen 325 Mg Tab) 650 mg PO Q4H PRN PRN Reason: Moderate Pain Stop: 01/16/22 17:22 Amlodipine Besylate (Amlodipine Besylate 5 Mg Tab) 5 mg PO QAM [facility] Stop: 01/17/22 08:59 Aspirin (Aspirin 81 Mg Ectab) 81 mg PO QAM [facility] Stop: 01/17/22 08:59 Last Admin: 12/22/21 08:35 Dose: 81 mg Atorvastatin Calcium (Atorvastatin 40 Mg Tab) 80 mg PO QPM [facility] Stop: 01/16/22 20:59 Last Admin: 12/23/21 20:18 Dose: 80 mg Baclofen (Baclofen 10 Mg Tab) 5 mg PO QAM [facility] Stop: 01/17/22 08:59 Last Admin: 12/24/21 08:23 Dose: 5 mg Carvedilol (Carvedilol 12.5 Mg Tab) 12.5 mg PO BID [facility] Stop: 01/16/22 20:59 Last Admin: 12/24/21 08:23 Dose: 12.5 mg Clopidogrel Bisulfate (Clopidogrel Bisulfate 75 Mg Tab) 75 mg PO QAM [facility] Stop: 01/17/22 08:59 Last Admin: 12/23/21 15:41 Dose: 75 mg Dextrose (Dextrose 50% 50 Ml Syringe) 25 - 50 ml IV UD PRN; Protocol PRN Reason: Hypoglycemia Protocol Stop: 01/16/22 16:16 Enoxaparin Sodium (Enoxaparin 80 Mg/0.8 Ml Syr) 80 mg SQ [facility] Stop: 01/16/22 20:59 Last Admin: 12/24/21 08:24 Dose: 80 mg Ferrous Sulfate (Ferrous Sulfate 325 Mg Tab) 325 mg PO QAM [facility] Stop: 01/19/22 08:59 Last Admin: 12/24/21 08:23 Dose: 325 mg Glucagon (Glucagon For Inj 1 Mg Vial) 1 mg SQ UD PRN; Protocol PRN Reason: Hypoglycemia Protocol Stop: 01/16/22 16:16 Glucose (Glucose 40% Gel 15 Gm Tube) 15 - 30 gm PO UD PRN; Protocol PRN Reason: Hypoglycemia Protocol Stop: 01/16/22 16:16 Glucose (Glucose 10 Tab/Tube) 4 - 8 tab PO UD PRN; Protocol PRN Reason: Hypoglycemia Treatment Stop: 01/16/22 16:16 Insulin Aspart (Insulin Aspart Per Unit) 0 units SC ACHS [facility] Stop: 01/16/22 16:29 Last Admin: 12/23/21 20:21 Dose: 2 units Insulin Glargine (Lantus Per Unit Charge) 14 units SQ QAM [facility] Stop: 01/16/22 08:59 Last Admin: 12/23/21 15:42 Dose: Not Given Insulin Glargine (Lantus Per Unit Charge) 10 units SQ QPM [facility] Stop: 01/16/22 20:59 Last Admin: 12/23/21 20:22 Dose: 10 units Lisinopril (Lisinopril 5 Mg Tab) 5 mg PO DAILY [facility] Stop: 01/17/22 08:59 Last Admin: 12/23/21 15:41 Dose: 5 mg Magnesium Oxide (Magnesium Oxide 400 Mg Tab) 400 mg PO QAM [facility] Stop: 01/23/22 08:59 Miscellaneous (Carbohydrates For Hypoglycemia ) 15 - 30 gm PO UD PRN PRN Reason: Hypoglycemia Protocol Stop: 01/16/22 16:16 Ondansetron HCl (Ondansetron Inj 2 Mg/Ml 2 Ml Vial) 4 mg IV Q4H PRN PRN Reason: Nausea And Vomiting Stop: 01/16/22 17:22 Tamsulosin HCl (Tamsulosin Hcl 0.4 Mg Cap) 0.4 mg PO HS [facility] Stop: 01/16/22 20:59 Last Admin: 12/23/21 20:18 Dose: 0.4 mg
[2021-12-24] MEDS: CLOPIDOGREL BISULFATE 75 MG TAB PO SCH (09:13)
[2021-12-24] MEDS: lisinopril 5 MG TAB PO SCH (09:13)
[2021-12-24] MEDS: MAGNESIUM OXIDE 400 MG TAB PO SCH (09:13)
[2021-12-24] MEDS: INSULIN ASPART PER UNIT SC SCH ×4 (09:17→20:29)
[2021-12-24] MEDS: LANTUS PER UNIT CHARGE SQ SCH ×2 (09:18→20:22)
[2021-12-24 09:35] LABS: Hematocrit (blood only) 33.5 % (40.1-51.0); Hemoglobin 9.9 g/dl (14.0-18.0); Mean Corpuscular Hemoglobin 23.2 pg (25.0-34.0); Mean Corpuscular Hgb Conc 29.6 g/dL (32.0-36.0); Mean Corpuscular Volume 78.6 fL (80.0-100.0); Mean Platelet Volume 11.7 fL (9.4-12.4); Platelet Count 305 K/uL (130-400); RDW Coefficient of Variation 20.3 % (11.5-14.5); RDW Standard Deviation 56.1 fL (36.4-46.3); Red Blood Count 4.26 M/uL (4.63-6.08); White Blood Count 5.37 K/ul (4.8-10.8)
[2021-12-24 09:40] LABS: Calcium 8.2 mg/dl (8.5-10.1); Creatinine Clr Calc Pharmacy 151.9 ml/min; Est GFR (African American) 130.5 ml/min; Est GFR (Non-African American) 112.6 ml/min; Magnesium 1.5 mg/dl (1.7-2.4); Phosphorus 3.1 mg/dl (2.5-4.9); Potassium 4.3 mmol/L (3.5-5.1)
[2021-12-24] MEDS ORDERED: MAGNESIUM SULFATE / D5W 1 GM/100 ML BAG IV ONE (12:30)
[2021-12-24] MEDS: ATORVASTATIN 40 MG TAB PO SCH (20:21)
[2021-12-24] MEDS: TAMSULOSIN HCL 0.4 MG CAP PO SCH (20:22)
[2021-12-25] MEDS: FERROUS SULFATE 325 MG TAB PO SCH (08:43)
[2021-12-25] MEDS: carvediloL 12.5 MG TAB PO SCH ×2 (08:43→20:40)
[2021-12-25] MEDS: BACLOFEN 10 MG TAB PO SCH (08:44)
[2021-12-25] MEDS: MAGNESIUM OXIDE 400 MG TAB PO SCH (08:44)
[2021-12-25] MEDS: CLOPIDOGREL BISULFATE 75 MG TAB PO SCH (08:44)
[2021-12-25] MEDS: ENOXAPARIN 80 MG/0.8 ML SYR SQ SCH ×2 (08:44→20:41)
[2021-12-25] MEDS: lisinopril 5 MG TAB PO SCH (08:44)
[2021-12-25] MEDS: LANTUS PER UNIT CHARGE SQ SCH ×2 (08:56→20:42)
[2021-12-25] MEDS: INSULIN ASPART PER UNIT SC SCH ×4 (08:57→20:42)
--- NOTE | 2021-12-25 13:04 | Hospitalist Progress Note ---
Date of Service December 25, 2021 Assessment & Plan (1) Syncopal episodes: (2) History of CVA (cerebrovascular accident): (3) CAD (coronary artery disease): (4) Aortic valve stenosis: (5) Hypomagnesemia: (6) HTN (hypertension): (7) Type 2 diabetes mellitus: (8) DVT (deep venous thrombosis): Plan: Presented to the ED after sending from Oncology clinic for syncope and Low BP Syncope Possible related to low BP and dehydration received IV fluid with BP improved Amlodipine placed on hold Repeat echocardiogram demonstrating stable borderline severe aortic valve stenosis with concentric left ventricular hypertrophy and hyperdynamic LV function. tele monitor showed no arrhythmia Cardiology consulted - recommended if BP starts to increase while off the amlodipine to increase the Carvedilol Continue monitor closely History of CVA (cerebrovascular accident): CAD Continue Plavix, Lovenox, Lipitor (hold ASA, discussed w/ cardiology and hem/onc) Anemia Hgb dropped to 6.9 (12/22) 1 unit of pRBC ordered No sign of active bleeding FOBT negative case discussed with hematology dr. Huntley that recommended GI eval since it will be easy for GI to see the patient while in the hospital in case if GI want to do any procedure that we can transition him on Heparin drip GI consulted for poss. endoscopy Now s/p EGD (12/23) Findings: The examined esophagus was normal. The entire examined stomach was normal. The examined duodenum was normal. Impression: - Normal esophagus. - Normal stomach. - Normal examined duodenum. - No specimens collected. Recommendation: - Return patient to hospital [facility] for ongoing care. -A colonoscopy could be considered, the patient is likely not to tolerate prep very well. if pt can't be on AC, may need vascular surgery due to recent DVT in 10/25 to evaluate for IVF filter Discussed w/ Dr. Huntley, no need for IVC filter at this time 12/23 Hgb 8.3 12/24 Hgb 9.9 HX of DVT Right LE DVT on 10/22/21 while on coumadin with therapeutic INR He had a stroke while on Eliquis Anticoagulant was changed to Lovenox 80mg BID Outpatient documentation with hematology recommended to continue Lovenox correction Check FOBT due to drop of Hgb , FOBT negative Type 2 diabetes mellitus: Hba1c back in August was 6.7 Continue Lantus and novolog sliding scale Continue monitor BS HTN (hypertension): BP was low at the Oncology office Received gentle IVF Continue to hold Amlodipine Continue Lisinopril 5mg Continue monitor BP Paroxysmal atrial fibrillation: rate controlled with Carvedilol Continue anticoagulant with Lovenox ( monitor h/h closely) Decubitus Ulcer Pressure-induced deep tissue injury of right buttock & unstageable pressure ulcer to coccyx both POA continue daily wound care Wound care on board DVT ppx: lovenox BID CODE: Full code Disposition PT/OT recommended inpatient rehab , awaiting placement Admission and Anticipated Discharge Date Admission Date: December 19, 2021 Subjective Pt was seen and examined for follow up of syncope and low BP Lying in bed in no acute distress No evidence of blood in stool as per staff FOBT negative Patient underwent EGD unremarkable. Pt denies any fevers, chills, chest pain, palpitation, dizziness or shortness of breath Review of Systems Review of Systems: All systems reviewed & are unremarkable except as noted in Subjective Physical Exam Physical Exam: General- No acute distress Head- atraumatic Eyes- PERRL, EOMI, ENT- oropharynx clear Neck- supple, no JVD Lungs- clear to auscultation Heart- regular rhythm; +systolic murmur Abdomen- normal bowel sounds, soft, nontender Extremities- no calf tenderness Neuro- alert, oriented; PERRL, EOMI; +slurred speech, +right sided hemiparesis Skin- warm & dry Results & Data Results & Data ([facility]) Vital Signs (Past 12 Hours) Vital Signs Temp Pulse Pulse Resp BP Pulse Ox O2 Del Method 12/25/21 11:59 37.5 C 84 18 142/77 H 97 Room Air 12/25/21 07:55 36.7 C 78 16 145/78 H 97 Room Air 12/25/21 07:21 73 12/25/21 04:01 36.9 C 83 20 116/45 L 95 Room Air Laboratory Results 12/25/21 12/25/21 12/24/21 Range/Units 11:17 07:25 20:27 POC Glucose 239 H 154 H 196 H (70-99) mg/dl 12/24/21 Range/Units 16:25 POC Glucose 219 H (70-99) mg/dl Medications Administered Current Inpatient Medications Acetaminophen (Acetaminophen 325 Mg Tab) 650 mg PO Q4H PRN PRN Reason: Moderate Pain Stop: 01/16/22 17:22 Amlodipine Besylate ([facility]ylate 5 Mg Tab) [facility] [place]: 01/17/22 08:59 Aspirin (Aspirin 81 Mg Ectab) 81 mg PO QAM [facility] Stop: 01/17/22 08:59 Last Admin: 12/22/21 08:35 Dose: 81 mg Atorvastatin Calcium (Atorvastatin 40 Mg Tab) 80 mg PO QPM [facility] Stop: 01/16/22 20:59 Last Admin: 12/24/21 20:21 Dose: 80 mg Baclofen (Baclofen 10 Mg Tab) [facility] [place]: 01/17/22 08:59 Last Admin: 12/25/21 08:44 Dose: 5 mg Carvedilol (Carvedilol 12.5 Mg Tab) 12.5 mg PO BID [facility] Stop: 01/16/22 20:59 Last Admin: 12/25/21 08:43 Dose: 12.5 mg Clopidogrel Bisulfate (Clopidogrel Bisulfate 75 Mg Tab) 75 mg PO [facility] Stop: 01/17/22 08:59 Last Admin: 12/25/21 08:44 Dose: 75 mg Dextrose (Dextrose 50% 50 Ml Syringe) 25 - 50 ml IV UD PRN; Protocol PRN Reason: Hypoglycemia Protocol Stop: 01/16/22 16:16 Enoxaparin Sodium (Enoxaparin 80 Mg/0.8 Ml Syr) 80 mg SQ [facility] Stop: 01/16/22 20:59 Last Admin: 12/25/21 08:44 Dose: 80 mg Ferrous Sulfate (Ferrous Sulfate 325 Mg Tab) 325 mg PO [facility] Stop: 01/19/22 08:59 Last Admin: 12/25/21 08:43 Dose: 325 mg Glucagon (Glucagon For Inj 1 Mg Vial) 1 mg SQ UD PRN; Protocol PRN Reason: Hypoglycemia Protocol Stop: 01/16/22 16:16 Glucose (Glucose 40% Gel 15 Gm Tube) 15 - 30 gm PO UD PRN; Protocol PRN Reason: Hypoglycemia Protocol Stop: 01/16/22 16:16 Glucose (Glucose 10 Tab/Tube) 4 - 8 tab PO UD PRN; Protocol PRN Reason: Hypoglycemia Treatment Stop: 01/16/22 16:16 Insulin Aspart (Insulin Aspart Per Unit) 0 units SC [facility] Stop: 01/16/22 16:29 Last Admin: 12/25/21 08:57 Dose: 4 units Insulin Glargine (Lantus Per Unit Charge) 14 units SQ QAM [facility] Stop: 01/16/22 08:59 Last Admin: 12/25/21 08:56 Dose: 14 units Insulin Glargine (Lantus Per Unit Charge) 10 units SQ QPM [facility] Stop: 01/16/22 20:59 Last Admin: 12/24/21 20:22 Dose: 10 units Lisinopril (Lisinopril 5 Mg Tab) 5 mg PO DAILY [facility] Stop: 01/17/22 08:59 Last Admin: 12/25/21 08:44 Dose: 5 mg Magnesium Oxide (Magnesium Oxide 400 Mg Tab) 400 mg PO QAM [facility] Stop: 01/23/22 08:59 Last Admin: 12/25/21 08:44 Dose: 400 mg Miscellaneous (Carbohydrates For Hypoglycemia ) 15 - 30 gm PO UD PRN PRN Reason: Hypoglycemia Protocol Stop: 01/16/22 16:16 Ondansetron HCl (Ondansetron Inj 2 Mg/Ml 2 Ml Vial) 4 mg IV Q4H PRN PRN Reason: Nausea And Vomiting Stop: 01/16/22 17:22 Tamsulosin HCl (Tamsulosin Hcl 0.4 Mg Cap) 0.4 mg PO HS [facility] Stop: 01/16/22 20:59 Last Admin: 12/24/21 20:22 Dose: 0.4 mg
[2021-12-25] MEDS: TAMSULOSIN HCL 0.4 MG CAP PO SCH (20:41)
[2021-12-25] MEDS: ATORVASTATIN 40 MG TAB PO SCH (20:41)
[2021-12-26] MEDS: BACLOFEN 10 MG TAB PO SCH (08:52)
[2021-12-26] MEDS: MAGNESIUM OXIDE 400 MG TAB PO SCH (08:52)
[2021-12-26] MEDS: carvediloL 12.5 MG TAB PO SCH ×2 (08:52→20:54)
[2021-12-26] MEDS: ENOXAPARIN 80 MG/0.8 ML SYR SQ SCH ×2 (08:52→20:54)
[2021-12-26] MEDS: FERROUS SULFATE 325 MG TAB PO SCH (08:52)
[2021-12-26] MEDS: lisinopril 5 MG TAB PO SCH (08:53)
[2021-12-26] MEDS: CLOPIDOGREL BISULFATE 75 MG TAB PO SCH (08:53)
[2021-12-26] MEDS: INSULIN ASPART PER UNIT SC SCH ×4 (09:36→20:55)
[2021-12-26] MEDS: LANTUS PER UNIT CHARGE SQ SCH ×2 (09:36→20:55)
--- NOTE | 2021-12-26 12:24 | Hospitalist Progress Note ---
Date of Service December 26, 2021 Assessment & Plan (1) Syncopal episodes: (2) History of CVA (cerebrovascular accident): (3) CAD (coronary artery disease): (4) Aortic valve stenosis: (5) Hypomagnesemia: (6) HTN (hypertension): (7) Type 2 diabetes mellitus: (8) DVT (deep venous thrombosis): Plan: Presented to the ED after sending from Oncology clinic for syncope and Low BP Syncope Possible related to low BP and dehydration received IV fluid with BP improved Amlodipine STOPPED Repeat echocardiogram demonstrating stable borderline severe aortic valve stenosis with concentric left ventricular hypertrophy and hyperdynamic LV function. tele monitor showed no arrhythmia Cardiology consulted - recommended if BP starts to increase while off the amlodipine to increase the Carvedilol Continue monitor closely History of CVA (cerebrovascular accident): CAD Continue Plavix, Lovenox, Lipitor (hold ASA, discussed w/ cardiology and hem/onc) Anemia Hgb dropped to 6.9 (12/22) 1 unit of pRBC ordered No sign of active bleeding FOBT negative case discussed with hematology dr. Huntley that recommended GI eval since it will be easy for GI to see the patient while in the hospital in case if GI want to do any procedure that we can transition him on Heparin drip GI consulted for poss. endoscopy Now s/p EGD (12/23) Findings: The examined esophagus was normal. The entire examined stomach was normal. The examined duodenum was normal. Impression: - Normal esophagus. - Normal stomach. - Normal examined duodenum. - No specimens collected. Recommendation: - Return patient to [facility] for ongoing care. -A colonoscopy could be considered, the patient is likely not to tolerate prep very well. if pt can't be on AC, may need vascular surgery due to recent DVT in 10/25 to evaluate for IVC filter Discussed w/ Dr. Huntley, no need for IVC filter at this time 12/23 Hgb 8.3 12/24 Hgb 9.9 HX of DVT Right LE DVT on 10/22/21 while on coumadin with therapeutic INR He had a stroke while on Eliquis Anticoagulant was changed to Lovenox 80mg BID , further monitoring per anticoagulation clinic Outpatient documentation with hematology recommended to continue Lovenox half-way Check FOBT due to drop of Hgb , FOBT negative Type 2 diabetes mellitus: Hba1c back in August was 6.7 Continue Lantus and novolog sliding scale Continue monitor BS HTN (hypertension): BP was low at the Oncology office Received gentle IVF Continue to hold Amlodipine Continue Lisinopril 5mg Continue monitor BP Paroxysmal atrial fibrillation: rate controlled with Carvedilol Continue anticoagulant with Lovenox ( monitor h/h closely) Decubitus Ulcer Pressure-induced deep tissue injury of right buttock & unstageable pressure ulcer to coccyx both POA continue daily wound care Wound care on board DVT ppx: lovenox BID CODE: Full code Disposition PT/OT recommended inpatient rehab , awaiting placement Admission and Anticipated Discharge Date Admission Date: December 19, 2021 Subjective Pt was seen and examined for follow up of syncope and low BP Lying in bed in no acute distress No evidence of blood in stool as per staff FOBT negative Patient underwent EGD unremarkable. Pt denies any fevers, chills, chest pain, palpitation, dizziness or shortness of breath Review of Systems Review of Systems: All systems reviewed & are unremarkable except as noted in Subjective Physical Exam Physical Exam: General- No acute distress Head- atraumatic Eyes- PERRL, EOMI, ENT- oropharynx clear Neck- supple, no JVD Lungs- clear to auscultation Heart- regular rhythm; +systolic murmur Abdomen- normal bowel sounds, soft, nontender Extremities- no calf tenderness Neuro- alert, oriented; PERRL, EOMI; +slurred speech, +right sided hemiparesis Skin- warm & dry Results & Data Results & Data ([facility]) Vital Signs (Past 12 Hours) Vital Signs Temp Pulse Pulse Pulse Resp BP Pulse Ox 12/26/21 11:29 36.4 C L 95 H 18 150/79 H 97 12/26/21 08:01 36.6 C 90 20 150/70 H 96 12/26/21 07:33 70 12/26/21 03:47 36.5 C 77 18 138/76 98 12/26/21 01:13 79 O2 Del Method 12/26/21 11:29 Room Air 12/26/21 08:01 Room Air 12/26/21 07:33 12/26/21 03:47 Room Air 12/26/21 01:13 Medications Administered Current Inpatient Medications Acetaminophen (Acetaminophen 325 Mg Tab) 650 mg PO Q4H PRN PRN Reason: Moderate Pain Stop: 01/16/22 17:22 Amlodipine Besylate (A[facility]odipine [facility]ylate 5 Mg Tab) [facility] [place] [facility]: 01/17/22 08:59 Aspirin (Aspirin 81 Mg Ectab) [facility] [place]: 01/17/22 08:59 Last Admin: 12/22/21 08:35 Dose: 81 mg Atorvastatin Calcium (Atorvastatin 40 Mg Tab) 80 mg PO QPM [facility] Stop: 01/16/22 20:59 Last Admin: 12/25/21 20:41 Dose: 80 mg Baclofen (Baclofen 10 Mg Tab) [facility] [place]: 01/17/22 08:59 Last Admin: 12/26/21 08:52 Dose: 5 mg Carvedilol (Carvedilol 12.5 Mg Tab) 12.5 mg PO BID [facility] Stop: 01/16/22 20:59 Last Admin: 12/26/21 08:52 Dose: 12.5 mg Clopidogrel Bisulfate (Clopidogrel Bisulfate 75 Mg Tab) 75 mg PO [facility] Stop: 01/17/22 08:59 Last Admin: 12/26/21 08:53 Dose: 75 mg Dextrose (Dextrose 50% 50 Ml Syringe) 25 - 50 ml IV UD PRN; Protocol PRN Reason: Hypoglycemia Protocol Stop: 01/16/22 16:16 Enoxaparin Sodium (Enoxaparin 80 Mg/0.8 Ml Syr) 80 mg SQ [facility] Stop: 01/16/22 20:59 Last Admin: 12/26/21 08:52 Dose: 80 mg Ferrous Sulfate (Ferrous Sulfate 325 Mg Tab) 325 mg PO [facility] Stop: 01/19/22 08:59 Last Admin: 12/26/21 08:52 Dose: 325 mg Glucagon (Glucagon For Inj 1 Mg Vial) 1 mg SQ UD PRN; Protocol PRN Reason: Hypoglycemia Protocol Stop: 01/16/22 16:16 Glucose (Glucose 40% Gel 15 Gm Tube) 15 - 30 gm PO UD PRN; Protocol PRN Reason: Hypoglycemia Protocol Stop: 01/16/22 16:16 Glucose (Glucose 10 Tab/Tube) 4 - 8 tab PO UD PRN; Protocol PRN Reason: Hypoglycemia Treatment Stop: 01/16/22 16:16 Insulin Aspart (Insulin Aspart Per Unit) 0 units SC [facility] Stop: 01/16/22 16:29 Last Admin: 12/26/21 09:36 Dose: 4 units Insulin Glargine (Lantus Per Unit Charge) 14 units SQ QAM [facility] Stop: 01/16/22 08:59 Last Admin: 12/26/21 09:36 Dose: 14 units Insulin Glargine (Lantus Per Unit Charge) 10 units SQ QPM [facility] Stop: 01/16/22 20:59 Last Admin: 12/25/21 20:42 Dose: 10 units Lisinopril (Lisinopril 5 Mg Tab) 5 mg PO DAILY [facility] Stop: 01/17/22 08:59 Last Admin: 12/26/21 08:53 Dose: 5 mg Magnesium Oxide (Magnesium Oxide 400 Mg Tab) 400 mg PO QAM [facility] Stop: 01/23/22 08:59 Last Admin: 12/26/21 08:52 Dose: 400 mg Miscellaneous (Carbohydrates For Hypoglycemia ) 15 - 30 gm PO UD PRN PRN Reason: Hypoglycemia Protocol Stop: 01/16/22 16:16 Ondansetron HCl (Ondansetron Inj 2 Mg/Ml 2 Ml Vial) 4 mg IV Q4H PRN PRN Reason: Nausea And Vomiting Stop: 01/16/22 17:22 Tamsulosin HCl (Tamsulosin Hcl 0.4 Mg Cap) 0.4 mg PO HS [facility] Stop: 01/16/22 20:59 Last Admin: 12/25/21 20:41 Dose: 0.4 mg
[2021-12-26] MEDS: TAMSULOSIN HCL 0.4 MG CAP PO SCH (20:53)
[2021-12-26] MEDS: ATORVASTATIN 40 MG TAB PO SCH (20:54)
[2021-12-27 07:07] LABS: Creatinine Clr Calc Pharmacy 187.3 ml/min; Est GFR (African American) 142.2 ml/min; Est GFR (Non-African American) 122.7 ml/min
[2021-12-27] MEDS: lisinopril 5 MG TAB PO SCH (08:01)
[2021-12-27] MEDS: FERROUS SULFATE 325 MG TAB PO SCH (08:02)
[2021-12-27] MEDS: ENOXAPARIN 80 MG/0.8 ML SYR SQ SCH ×2 (08:02→21:35)
[2021-12-27] MEDS: MAGNESIUM OXIDE 400 MG TAB PO SCH (08:02)
[2021-12-27] MEDS: BACLOFEN 10 MG TAB PO SCH (08:02)
[2021-12-27] MEDS: CLOPIDOGREL BISULFATE 75 MG TAB PO SCH (08:02)
[2021-12-27] MEDS: carvediloL 12.5 MG TAB PO SCH ×2 (08:02→21:36)
[2021-12-27] MEDS: INSULIN ASPART PER UNIT SC SCH ×4 (08:10→22:16)
[2021-12-27] MEDS: LANTUS PER UNIT CHARGE SQ SCH ×2 (08:10→21:59)
--- NOTE | 2021-12-27 11:40 | Hospitalist Progress Note ---
Date of Service December 27, 2021 Assessment & Plan (1) Syncopal episodes: (2) History of CVA (cerebrovascular accident): (3) CAD (coronary artery disease): (4) Aortic valve stenosis: (5) Hypomagnesemia: (6) HTN (hypertension): (7) Type 2 diabetes mellitus: (8) DVT (deep venous thrombosis): Plan: Presented to the ED after sending from Oncology clinic for syncope and Low BP Syncope Possible related to low BP and dehydration received IV fluid with BP improved Amlodipine STOPPED Repeat echocardiogram demonstrating stable borderline severe aortic valve stenosis with concentric left ventricular hypertrophy and hyperdynamic LV function. tele monitor showed no arrhythmia Cardiology consulted - recommended if BP starts to increase while off the amlodipine to increase the Carvedilol Continue monitor closely History of CVA (cerebrovascular accident): CAD Continue Plavix, Lovenox, Lipitor (hold ASA, discussed w/ cardiology and hem/onc) Anemia Hgb dropped to 6.9 (12/22) 1 unit of pRBC ordered No sign of active bleeding FOBT negative case discussed with hematology dr. Huntley that recommended GI eval since it will be easy for GI to see the patient while in the hospital in case if GI want to do any procedure that we can transition him on Heparin drip GI consulted for poss. endoscopy Now s/p EGD (12/23) Findings: The examined esophagus was normal. The entire examined stomach was normal. The examined duodenum was normal. Impression: - Normal esophagus. - Normal stomach. - Normal examined duodenum. - No specimens collected. Recommendation: - Return patient to [facility] for ongoing care. -A colonoscopy could be considered, the patient is likely not to tolerate prep very well. if pt can't be on AC, may need vascular surgery due to recent DVT in 10/25 to evaluate for IVC filter Discussed w/ Dr. Huntley, no need for IVC filter at this time 12/23 Hgb 8.3 12/24 Hgb 9.9 HX of DVT Right LE DVT on 10/22/21 while on coumadin with therapeutic INR He had a stroke while on Eliquis Anticoagulant was changed to Lovenox 80mg BID , further monitoring per anticoagulation clinic Outpatient documentation with hematology recommended to continue Lovenox assisted Check FOBT due to drop of Hgb , FOBT negative Type 2 diabetes mellitus: Hba1c back in August was 6.7 Continue Lantus and novolog sliding scale Continue monitor BS HTN (hypertension): BP was low at the Oncology office Received gentle IVF Continue to hold Amlodipine Continue Lisinopril 5mg Continue monitor BP Paroxysmal atrial fibrillation: rate controlled with Carvedilol Continue anticoagulant with Lovenox ( monitor h/h closely) Decubitus Ulcer Pressure-induced deep tissue injury of right buttock & unstageable pressure ulcer to coccyx both POA continue daily wound care Wound care on board DVT ppx: lovenox BID CODE: Full code Disposition PT/OT recommended inpatient rehab , awaiting placement Admission and Anticipated Discharge Date Admission Date: December 19, 2021 Subjective Pt was seen and examined for follow up of syncope and low BP Lying in bed in no acute distress No evidence of blood in stool as per staff FOBT negative Patient underwent EGD unremarkable. Pt denies any fevers, chills, chest pain, palpitation, dizziness or shortness of breath Review of Systems Review of Systems: All systems reviewed & are unremarkable except as noted in Subjective Physical Exam Physical Exam: General- No acute distress Head- atraumatic Eyes- PERRL, EOMI, ENT- oropharynx clear Neck- supple, no JVD Lungs- clear to auscultation Heart- regular rhythm; +systolic murmur Abdomen- normal bowel sounds, soft, nontender Extremities- no calf tenderness Neuro- alert, oriented; PERRL, EOMI; +slurred speech, +right sided hemiparesis Skin- warm & dry Results & Data Results & Data ([facility]) Vital Signs (Past 12 Hours) Vital Signs Temp Pulse Pulse Resp BP Pulse Ox O2 Del Method 12/27/21 07:24 36.9 C 77 19 127/68 97 Room Air 12/27/21 03:28 36.7 C 73 18 116/67 98 Room Air 12/27/21 00:00 76 Laboratory Results 12/27/21 12/27/21 12/27/21 Range/Units 11:16 07:22 06:15 Creatinine 0.43 L (0.6-1.4) mg/dl Est Cr Clr Drug Dosing 187.3 ml/min Est GFR ( Amer) 142.2 ml/min Est GFR (Non-Af Amer) 122.7 ml/min POC Glucose 176 H 151 H (70-99) mg/dl 12/26/21 12/26/21 Range/Units 20:25 16:34 Creatinine (0.6-1.4) mg/dl Est Cr Clr Drug Dosing ml/min Est GFR ( Amer) ml/min Est GFR (Non-Af Amer) ml/min POC Glucose 201 H 190 H (70-99) mg/dl Medications Administered Current Inpatient Medications Acetaminophen (Acetaminophen 325 Mg Tab) 650 mg PO Q4H PRN PRN Reason: Moderate Pain Stop: 01/16/22 17:22 Amlodipine Besylate ([facility] 5 Mg Tab) [facility]: 01/17/22 08:59 Aspirin (Aspirin 81 Mg Ectab) 81 mg PO [facility] Stop: 01/17/22 08:59 Last Admin: 12/22/21 08:35 Dose: 81 mg Atorvastatin Calcium (Atorvastatin 40 Mg Tab) 80 mg PO QPM [facility] Stop: 01/16/22 20:59 Last Admin: 12/26/21 20:54 Dose: 80 mg Baclofen (Baclofen 10 Mg Tab) [facility] Stop: 01/17/22 08:59 Last Admin: 12/27/21 08:02 Dose: 5 mg Carvedilol (Carvedilol 12.5 Mg Tab) 12.5 mg PO BID [facility] Stop: 01/16/22 20:59 Last Admin: 12/27/21 08:02 Dose: 12.5 mg Clopidogrel Bisulfate (Clopidogrel Bisulfate 75 Mg Tab) 75 mg PO QAM [facility] Stop: 01/17/22 08:59 Last Admin: 12/27/21 08:02 Dose: 75 mg Dextrose (Dextrose 50% 50 Ml Syringe) 25 - 50 ml IV UD PRN; Protocol PRN Reason: Hypoglycemia Protocol Stop: 01/16/22 16:16 Enoxaparin Sodium (Enoxaparin 80 Mg/0.8 Ml Syr) 80 mg SQ [facility] Stop: 01/16/22 20:59 Last Admin: 12/27/21 08:02 Dose: 80 mg Ferrous Sulfate (Ferrous Sulfate 325 Mg Tab) 325 mg PO QAM [facility] Stop: 01/19/22 08:59 Last Admin: 12/27/21 08:02 Dose: 325 mg Glucagon (Glucagon For Inj 1 Mg Vial) 1 mg SQ UD PRN; Protocol PRN Reason: Hypoglycemia Protocol Stop: 01/16/22 16:16 Glucose (Glucose 40% Gel 15 Gm Tube) 15 - 30 gm PO UD PRN; Protocol PRN Reason: Hypoglycemia Protocol Stop: 01/16/22 16:16 Glucose (Glucose 10 Tab/Tube) 4 - 8 tab PO UD PRN; Protocol PRN Reason: Hypoglycemia Treatment Stop: 01/16/22 16:16 Insulin Aspart (Insulin Aspart Per Unit) 0 units SC ACHS [facility] Stop: 01/16/22 16:29 Last Admin: 12/27/21 08:10 Dose: 4 units Insulin Glargine (Lantus Per Unit Charge) 14 units SQ QAM [facility] Stop: 01/16/22 08:59 Last Admin: 12/27/21 08:10 Dose: 14 units Insulin Glargine (Lantus Per Unit Charge) 10 units SQ QPM [facility] Stop: 01/16/22 20:59 Last Admin: 12/26/21 20:55 Dose: 10 units Lisinopril (Lisinopril 5 Mg Tab) 5 mg PO DAILY [facility] Stop: 01/17/22 08:59 Last Admin: 12/27/21 08:01 Dose: 5 mg Magnesium Oxide (Magnesium Oxide 400 Mg Tab) 400 mg PO QAM [facility] Stop: 01/23/22 08:59 Last Admin: 12/27/21 08:02 Dose: 400 mg Miscellaneous (Carbohydrates For Hypoglycemia ) 15 - 30 gm PO UD PRN PRN Reason: Hypoglycemia Protocol Stop: 01/16/22 16:16 Ondansetron HCl (Ondansetron Inj 2 Mg/Ml 2 Ml Vial) 4 mg IV Q4H PRN PRN Reason: Nausea And Vomiting Stop: 01/16/22 17:22 Tamsulosin HCl (Tamsulosin Hcl 0.4 Mg Cap) 0.4 mg PO HS [facility] Stop: 01/16/22 20:59 Last Admin: 12/26/21 20:53 Dose: 0.4 mg
[2021-12-27 12:12] LABS: BUN Creatinine Ratio 26.2 (10-20); Calcium 7.8 mg/dl (8.5-10.1); Creatinine Clr Calc Pharmacy 191.7 ml/min; Est GFR (African American) 143.6 ml/min; Est GFR (Non-African American) 123.9 ml/min; Magnesium 1.4 mg/dl (1.7-2.4); Potassium 3.9 mmol/L (3.5-5.1)
[2021-12-27] MEDS ORDERED: MAGNESIUM SULFATE / D5W 1 GM/100 ML BAG IV ONE (14:55)
[2021-12-27] MEDS: ATORVASTATIN 40 MG TAB PO SCH (21:36)
[2021-12-27] MEDS: TAMSULOSIN HCL 0.4 MG CAP PO SCH (21:36)
[2021-12-28 07:12] LABS: Hematocrit (blood only) 28.8 % (40.1-51.0); Hemoglobin 8.6 g/dl (14.0-18.0)
[2021-12-28] MEDS: carvediloL 12.5 MG TAB PO SCH ×2 (08:14→21:10)
[2021-12-28] MEDS: lisinopril 5 MG TAB PO SCH (08:14)
[2021-12-28] MEDS: MAGNESIUM OXIDE 400 MG TAB PO SCH (08:15)
[2021-12-28] MEDS: BACLOFEN 10 MG TAB PO SCH (08:15)
[2021-12-28] MEDS: CLOPIDOGREL BISULFATE 75 MG TAB PO SCH (08:15)
[2021-12-28] MEDS: FERROUS SULFATE 325 MG TAB PO SCH (08:15)
[2021-12-28] MEDS: ENOXAPARIN 80 MG/0.8 ML SYR SQ SCH ×2 (08:15→21:09)
--- NOTE | 2021-12-28 08:33 | Hospitalist Progress Note ---
Date of Service December 28, 2021 Assessment & Plan (1) Syncopal episodes: (2) History of CVA (cerebrovascular accident): (3) CAD (coronary artery disease): (4) Aortic valve stenosis: (5) Hypomagnesemia: (6) HTN (hypertension): (7) Type 2 diabetes mellitus: (8) DVT (deep venous thrombosis): Plan: Presented to the ED after sending from Oncology clinic for syncope and Low BP Syncope Possible related to low BP and dehydration received IV fluid with BP improved Amlodipine STOPPED Repeat echocardiogram demonstrating stable borderline severe aortic valve stenosis with concentric left ventricular hypertrophy and hyperdynamic LV function. tele monitor showed no arrhythmia Cardiology consulted - recommended if BP starts to increase while off the amlodipine to increase the Carvedilol Continue monitor closely History of CVA (cerebrovascular accident): CAD Continue Plavix, Lovenox, Lipitor (hold ASA, discussed w/ cardiology and hem/onc) Anemia Hgb dropped to 6.9 (12/22) 1 unit of pRBC ordered No sign of active bleeding FOBT negative case discussed with hematology dr. Huntley that recommended GI eval since it will be easy for GI to see the patient while in the hospital in case if GI want to do any procedure that we can transition him on Heparin drip GI consulted for poss. endoscopy Now s/p EGD (12/23) Findings: The examined esophagus was normal. The entire examined stomach was normal. The examined duodenum was normal. Impression: - Normal esophagus. - Normal stomach. - Normal examined duodenum. - No specimens collected. Recommendation: - Return patient to [facility] for ongoing care. -A colonoscopy could be considered, the patient is likely not to tolerate prep very well. if pt can't be on AC, may need vascular surgery due to recent DVT in 10/25 to evaluate for IVC filter Discussed w/ Dr. Huntley, no need for IVC filter at this time 12/23 Hgb 8.3 12/24 Hgb 9.9 (likely wrong - there was no blood transfusion between 12/23 and 12/24) 12/27 8.6 - stable HX of DVT Right LE DVT on 10/22/21 while on coumadin with therapeutic INR He had a stroke while on Eliquis Anticoagulant was changed to Lovenox 80mg BID , further monitoring per anticoagulation clinic Outpatient documentation with hematology recommended to continue Lovenox [facility] Check FOBT due to drop of Hgb , FOBT negative Type 2 diabetes mellitus: Hba1c back in August was 6.7 Continue Lantus and novolog sliding scale Continue monitor BS HTN (hypertension): BP was low at the Oncology office Received gentle IVF Continue to hold Amlodipine Continue Lisinopril 5mg Continue monitor BP Paroxysmal atrial fibrillation: rate controlled with Carvedilol Continue anticoagulant with Lovenox ( monitor h/h closely) Decubitus Ulcer Pressure-induced deep tissue injury of right buttock & unstageable pressure ulcer to coccyx both POA continue daily wound care Wound care on board DVT ppx: lovenox BID CODE: Full code Disposition PT/OT recommended inpatient rehab , awaiting placement Admission and Anticipated Discharge Date Admission Date: December 19, 2021 Subjective Pt was seen and examined for follow up of syncope and low BP Lying in bed in no acute distress No evidence of blood in stool as per staff FOBT negative Patient underwent EGD unremarkable. Pt denies any fevers, chills, chest pain, palpitation, dizziness or shortness of breath Review of Systems Review of Systems: All systems reviewed & are unremarkable except as noted in Subjective Physical Exam Physical Exam: General- No acute distress Head- atraumatic Eyes- PERRL, EOMI, ENT- oropharynx clear Neck- supple, no JVD Lungs- clear to auscultation Heart- regular rhythm; +systolic murmur Abdomen- normal bowel sounds, soft, nontender Extremities- no calf tenderness Neuro- alert, oriented; PERRL, EOMI; +slurred speech, +right sided hemiparesis Skin- warm & dry Results & Data Results & Data ([facility]) Vital Signs (Past 12 Hours) Vital Signs Temp Pulse Pulse Resp BP Pulse Ox O2 Del Method 12/28/21 08:10 36.4 C L 71 17 157/87 H 98 Room Air 12/28/21 03:56 36.5 C 74 16 135/81 99 Room Air 12/28/21 00:00 76 12/27/21 23:40 36.8 C 73 18 126/71 98 Room Air Laboratory Results 12/28/21 12/28/21 12/27/21 Range/Units 07:12 06:43 20:33 Hgb 8.6 L (14.0-18.0) g/dl Hct 28.8 L (40.1-51.0) % Sodium (136-145) mmol/L Potassium (3.5-5.1) mmol/L Chloride (98-107) mmol/L Carbon Dioxide (21-32) mmol/L Anion Gap (3-11) BUN (6-23) mg/dl Creatinine (0.6-1.4) mg/dl Est Cr Clr Drug Dosing ml/min Est GFR ( Amer) ml/min Est GFR (Non-Af Amer) ml/min BUN/Creatinine Ratio (10-20) Glucose (70-99(Fasting)) mg/dl POC Glucose 149 H 159 H (70-99) mg/dl Calcium (8.5-10.1) mg/dl Magnesium (1.7-2.4) mg/dl 12/27/21 12/27/21 12/27/21 Range/Units 16:17 11:16 06:20 Hgb (14.0-18.0) g/dl Hct (40.1-51.0) % Sodium 135 L (136-145) mmol/L Potassium 3.9 (3.5-5.1) mmol/L Chloride 102 (98-107) mmol/L Carbon Dioxide 28 (21-32) mmol/L Anion Gap 5 (3-11) BUN 11 (6-23) mg/dl Creatinine 0.42 L (0.6-1.4) mg/dl Est Cr Clr Drug Dosing 191.7 ml/min Est GFR ( Amer) 143.6 ml/min Est GFR (Non-Af Amer) 123.9 ml/min BUN/Creatinine Ratio 26.2 H (10-20) Glucose 146 H (70-99(Fasting)) mg/dl POC Glucose 206 H 176 H (70-99) mg/dl Calcium 7.8 L (8.5-10.1) mg/dl Magnesium 1.4 L (1.7-2.4) mg/dl Medications Administered Current Inpatient Medications Acetaminophen (Acetaminophen 325 Mg Tab) 650 mg PO Q4H PRN PRN Reason: Moderate Pain Stop: 01/16/22 17:22 Amlodipine Besylate ([facility]ylate 5 Mg Tab) [facility]: 01/17/22 08:59 Aspirin (Aspirin 81 Mg Ectab) [facility] Stop: 01/17/22 08:59 Last Admin: 12/22/21 08:35 Dose: 81 mg Atorvastatin Calcium (Atorvastatin 40 Mg Tab) 80 mg PO QPM [facility] Stop: 01/16/22 20:59 Last Admin: 12/27/21 21:36 Dose: 80 mg Baclofen (Baclofen 10 Mg Tab) 5 mg PO QAM [facility] Stop: 01/17/22 08:59 Last Admin: 12/28/21 08:15 Dose: 5 mg Carvedilol (Carvedilol 12.5 Mg Tab) 12.5 mg PO BID [facility] Stop: 01/16/22 20:59 Last Admin: 12/28/21 08:14 Dose: 12.5 mg Clopidogrel Bisulfate (Clopidogrel Bisulfate 75 Mg Tab) [facility] [place] Stop: 01/17/22 08:59 Last Admin: 12/28/21 08:15 Dose: 75 mg Dextrose (Dextrose 50% 50 Ml Syringe) 25 - 50 ml IV UD PRN; Protocol PRN Reason: Hypoglycemia Protocol Stop: 01/16/22 16:16 Enoxaparin Sodium (Enoxaparin 80 Mg/0.8 Ml Syr) 80 mg SQ [facility] Stop: 01/16/22 20:59 Last Admin: 12/28/21 08:15 Dose: 80 mg Ferrous Sulfate (Ferrous Sulfate 325 Mg Tab) 325 mg PO [facility] Stop: 01/19/22 08:59 Last Admin: 12/28/21 08:15 Dose: 325 mg Glucagon (Glucagon For Inj 1 Mg Vial) 1 mg SQ UD PRN; Protocol PRN Reason: Hypoglycemia Protocol Stop: 01/16/22 16:16 Glucose (Glucose 40% Gel 15 Gm Tube) 15 - 30 gm PO UD PRN; Protocol PRN Reason: Hypoglycemia Protocol Stop: 01/16/22 16:16 Glucose (Glucose 10 Tab/Tube) 4 - 8 tab PO UD PRN; Protocol PRN Reason: Hypoglycemia Treatment Stop: 01/16/22 16:16 Insulin Aspart (Insulin Aspart Per Unit) 0 units SC [facility] Stop: 01/16/22 16:29 Last Admin: 12/27/21 22:16 Dose: Not Given Insulin Glargine (Lantus Per Unit Charge) 14 units SQ [facility] Stop: 01/16/22 08:59 Last Admin: 12/27/21 08:10 Dose: 14 units Insulin Glargine (Lantus Per Unit Charge) 10 units SQ QPM [facility] Stop: 01/16/22 20:59 Last Admin: 12/27/21 21:59 Dose: 10 units Lisinopril (Lisinopril 5 Mg Tab) 5 mg PO DAILY [facility] Stop: 01/17/22 08:59 Last Admin: 12/28/21 08:14 Dose: 5 mg Magnesium Oxide (Magnesium Oxide 400 Mg Tab) 400 mg PO QAM [facility] Stop: 01/23/22 08:59 Last Admin: 12/28/21 08:15 Dose: 400 mg Miscellaneous (Carbohydrates For Hypoglycemia ) 15 - 30 gm PO UD PRN PRN Reason: Hypoglycemia Protocol Stop: 01/16/22 16:16 Ondansetron HCl (Ondansetron Inj 2 Mg/Ml 2 Ml Vial) 4 mg IV Q4H PRN PRN Reason: Nausea And Vomiting Stop: 01/16/22 17:22 Tamsulosin HCl (Tamsulosin Hcl 0.4 Mg Cap) 0.4 mg PO HS [facility] Stop: 01/16/22 20:59 Last Admin: 12/27/21 21:36 Dose: 0.4 mg
[2021-12-28] MEDS: INSULIN ASPART PER UNIT SC SCH ×4 (09:21→21:11)
[2021-12-28] MEDS: LANTUS PER UNIT CHARGE SQ SCH ×2 (09:21→21:11)
[2021-12-28] MEDS: TAMSULOSIN HCL 0.4 MG CAP PO SCH (21:10)
[2021-12-28] MEDS: ATORVASTATIN 40 MG TAB PO SCH (21:10)
[2021-12-29] MEDS: BACLOFEN 10 MG TAB PO SCH (08:24)
[2021-12-29] MEDS: carvediloL 12.5 MG TAB PO SCH ×2 (08:24→20:22)
[2021-12-29] MEDS: MAGNESIUM OXIDE 400 MG TAB PO SCH (08:25)
[2021-12-29] MEDS: CLOPIDOGREL BISULFATE 75 MG TAB PO SCH (08:25)
[2021-12-29] MEDS: lisinopril 5 MG TAB PO SCH (08:25)
[2021-12-29] MEDS: ENOXAPARIN 80 MG/0.8 ML SYR SQ SCH ×2 (08:25→20:23)
[2021-12-29] MEDS: FERROUS SULFATE 325 MG TAB PO SCH (08:25)
[2021-12-29 09:13] LABS: Basophils # (auto) 0.02 K/uL (0-0.2); Basophils % (auto) 0.4 %; Eosinophils # (auto) 0.09 K/uL (0-0.50); Eosinophils % (auto) 1.8 %; Hematocrit (blood only) 32.9 % (40.1-51.0); Hemoglobin 9.7 g/dl (14.0-18.0); Immature Granulocytes # (auto) 0.01 K/uL (0.00-0.02); Immature Granulocytes % (auto) 0.2 %; Lymphocytes # (auto) 1.36 K/uL (1.2-3.4); Lymphocytes % (auto) 27.1 %; Mean Corpuscular Hemoglobin 23.4 pg (25.0-34.0); Mean Corpuscular Hgb Conc 29.5 g/dL (32.0-36.0); Mean Corpuscular Volume 79.5 fL (80.0-100.0); Mean Platelet Volume 10.3 fL (9.4-12.4); Monocytes # (auto) 0.28 K/uL (0.24-0.82); Monocytes % (auto) 5.6 %; Neutrophils # (auto) 3.26 K/uL (1.4-6.5); Neutrophils % (auto) 64.9 %; Platelet Count 312 K/uL (130-400); RDW Coefficient of Variation 20.7 % (11.5-14.5); RDW Standard Deviation 58.4 fL (36.4-46.3); Red Blood Count 4.14 M/uL (4.63-6.08); White Blood Count 5.02 K/ul (4.8-10.8)
[2021-12-29] MEDS: INSULIN ASPART PER UNIT SC SCH ×4 (09:36→20:37)
[2021-12-29] MEDS: LANTUS PER UNIT CHARGE SQ SCH ×2 (09:37→20:36)
[2021-12-29 09:42] LABS: Magnesium 1.6 mg/dl (1.7-2.4)
[2021-12-29 10:12] LABS: Anisocytosis Present; Echinocytes 1+; Ovalocytes 1+; Poikilocytosis Present; Polychromasia 1+; Tear Drop Cells 1+
[2021-12-29] MEDS ORDERED: MAGNESIUM SULFATE / D5W 1 GM/100 ML BAG IV ONE (16:26)
[2021-12-29 17:24] LABS: BUN Creatinine Ratio 19.6 (10-20); Calcium 8.3 mg/dl (8.5-10.1); Creatinine Clr Calc Pharmacy 143.8 ml/min; Est GFR (African American) 127.6 ml/min; Est GFR (Non-African American) 110.1 ml/min; Potassium 4.1 mmol/L (3.5-5.1)
--- NOTE | 2021-12-29 18:13 | Hospitalist Progress Note ---
Date of Service December 29, 2021 Assessment & Plan (1) Syncopal episodes: (2) History of CVA (cerebrovascular accident): (3) CAD (coronary artery disease): (4) Aortic valve stenosis: (5) Hypomagnesemia: (6) HTN (hypertension): (7) Type 2 diabetes mellitus: (8) DVT (deep venous thrombosis): Plan: Per previous attending notes with addendum: Presented to the ED after sending from Oncology clinic for syncope and Low BP Syncope Possible related to low BP and dehydration received IV fluid with BP improved Amlodipine STOPPED Repeat echocardiogram demonstrating stable borderline severe aortic valve stenosis with concentric left ventricular hypertrophy and hyperdynamic LV function. tele monitor showed no arrhythmia Cardiology consulted - recommended if BP starts to increase while off the amlodipine to increase the Carvedilol Continue monitor closely History of CVA (cerebrovascular accident): CAD Continue Plavix, Lovenox, Lipitor (hold ASA, discussed w/ cardiology and hem/onc) Iron deficiency anemia Hgb dropped to 6.9 (12/22) Iron level 15 1 unit of pRBC ordered No sign of active bleeding FOBT negative case discussed with hematology dr. Huntley that recommended GI eval since it will be easy for GI to see the patient while in the hospital in case if GI want to do any procedure that we can transition him on Heparin drip GI consulted for poss. endoscopy Now s/p EGD (12/23) Findings: The examined esophagus was normal. The entire examined stomach was normal. The examined duodenum was normal. Impression: - Normal esophagus. - Normal stomach. - Normal examined duodenum. - No specimens collected. Recommendation: - Return patient to [facility] for ongoing care. -A colonoscopy could be considered, the patient is likely not to tolerate prep very well. if pt can't be on AC, may need vascular surgery due to recent DVT in 10/25 to e valuate for IVC filter Discussed w/ Dr. Huntley, no need for IVC filter at this time 12/23 Hgb 8.3 12/24 Hgb 9.9 (likely wrong - there was no blood transfusion between 12/23 and 12/24) 12/27 8.6 12/28 9.7 Case discussed in detail at length with patient's Nasreen at the bedside Patient's baseline hemoglobin is 12, based on admission last August 2021 Lovenox therapeutic dosing twice a day started in October 2021 for DVT Admitted with hemoglobin of 9, iron level 15 at one point hemoglobin 6.9, 1 unit of packed RBCs ordered Currently hemoglobin remains between 8-9 Source of blood loss unknown at this time, patient requiring therapeutic Lovenox twice daily for recent DVT and aspirin for history of CVA re- consult GI for colonoscopy, will assist patient with colon prep administration HX of DVT Right LE DVT on 10/22/21 while on coumadin with therapeutic INR He had a stroke while on Eliquis Anticoagulant was changed to Lovenox 80mg BID , further monitoring per anticoagulation clinic Outpatient documentation with hematology recommended to continue Lovenox [facility] Type 2 diabetes mellitus: Hba1c back in August was 6.7 Continue Lantus and novolog sliding scale Continue monitor BS HTN (hypertension): BP was low at the Oncology office Received gentle IVF Continue to hold Amlodipine Continue Lisinopril 5mg Continue monitor BP Paroxysmal atrial fibrillation: rate controlled with Carvedilol Continue anticoagulant with Lovenox ( monitor h/h closely) 12/29: 9 beats of V. tach noted on telemetry IV magnesium ordered Monitor electrolytes Decubitus Ulcer Pressure-induced deep tissue injury of right buttock & unstageable pressure ulcer to coccyx both POA continue daily wound care Wound care on board DVT ppx: lovenox BID CODE: Full code Disposition PT/OT recommended inpatient rehab plan of care discussed with patient and his in detail and at length all questions answered she is understanding, agreeable, comfortable with the plan of care Admission and Anticipated Discharge Date Admission Date: December 19, 2021 Subjective Follow-up for iron deficiency anemia, syncope, etc. Seen with patient's Nasreen at the bedside Patient sitting up in bed, awake, alert, comfortable Answers questions appropriately Denies chest pain, shortness of breath, palpitations, dizziness No reports of melena or hematochezia Appetite is good No other symptoms Review of Systems Review of Systems: all noted and negative except for above Physical Exam Physical Exam: General- oriented x 2, not in distress, speaks in sentences with no effort or accessory muscle use Eyes- anicteric Neck- no JVD Lungs- clear breath sounds bilaterally, no rales/wheezes Heart- normal rate, regular rhythm; positive grade 3/6 holosystolic murmur Abdomen- normal bowel sounds, nondistended, soft, nontender Extremities- no pretibial edema, no calf tenderness Neuro- alert, oriented x 3; no gross focal neurologic deficits Skin- warm & dry Results & Data Results & Data ([facility]) Vital Signs (Past 12 Hours) Vital Signs Temp Pulse Pulse Resp BP Pulse Ox O2 Del Method 12/29/21 15:43 36.5 C 74 18 112/71 95 Room Air 12/29/21 15:40 69 12/29/21 11:52 36.8 C 85 18 111/72 94 Room Air 12/29/21 07:49 36.9 C 79 16 154/83 H 97 Room Air 12/29/21 07:49 Room Air 12/29/21 07:34 78 all noted and reviewed including below
[2021-12-29] MEDS: TAMSULOSIN HCL 0.4 MG CAP PO SCH (20:22)
[2021-12-29] MEDS: ATORVASTATIN 40 MG TAB PO SCH (20:23)
[2021-12-30 07:29] LABS: Basophils # (auto) 0.02 K/uL (0-0.2); Basophils % (auto) 0.4 %; Eosinophils # (auto) 0.16 K/uL (0-0.50); Hematocrit (blood only) 30.3 % (40.1-51.0); Hemoglobin 9.1 g/dl (14.0-18.0); Immature Granulocytes # (auto) 0.02 K/uL (0.00-0.02); Immature Granulocytes % (auto) 0.4 %; Lymphocytes # (auto) 1.52 K/uL (1.2-3.4); Lymphocytes % (auto) 28.1 %; Mean Corpuscular Hemoglobin 23.7 pg (25.0-34.0); Mean Corpuscular Volume 78.9 fL (80.0-100.0); Mean Platelet Volume 10.3 fL (9.4-12.4); Monocytes # (auto) 0.35 K/uL (0.24-0.82); Monocytes % (auto) 6.5 %; Neutrophils # (auto) 3.34 K/uL (1.4-6.5); Neutrophils % (auto) 61.6 %; Platelet Count 297 K/uL (130-400); RDW Coefficient of Variation 20.7 % (11.5-14.5); RDW Standard Deviation 59.4 fL (36.4-46.3); Red Blood Count 3.84 M/uL (4.63-6.08); White Blood Count 5.41 K/ul (4.8-10.8)
[2021-12-30 08:01] LABS: Echinocytes 1+; Ovalocytes 1+; Polychromasia 1+; Schistocytes 1+
[2021-12-30 08:04] LABS: Creatinine Clr Calc Pharmacy 157.9 ml/min; Est GFR (African American) 132.6 ml/min; Est GFR (Non-African American) 114.4 ml/min; Magnesium 1.7 mg/dl (1.7-2.4)
[2021-12-30] MEDS: INSULIN ASPART PER UNIT SC SCH ×4 (08:09→21:05)
[2021-12-30] MEDS: CLOPIDOGREL BISULFATE 75 MG TAB PO SCH (08:19)
[2021-12-30] MEDS: FERROUS SULFATE 325 MG TAB PO SCH (08:19)
[2021-12-30] MEDS: carvediloL 12.5 MG TAB PO SCH ×2 (08:20→21:05)
[2021-12-30] MEDS: BACLOFEN 10 MG TAB PO SCH (08:20)
[2021-12-30] MEDS: ENOXAPARIN 80 MG/0.8 ML SYR SQ SCH ×2 (08:23→21:05)
[2021-12-30] MEDS: LANTUS PER UNIT CHARGE SQ SCH ×2 (08:28→21:06)
[2021-12-30] MEDS: MAGNESIUM OXIDE 400 MG TAB PO SCH (09:06)
[2021-12-30] MEDS: lisinopril 5 MG TAB PO SCH (09:06)
[2021-12-30] MEDS: ATORVASTATIN 40 MG TAB PO SCH (21:04)
[2021-12-30] MEDS: TAMSULOSIN HCL 0.4 MG CAP PO SCH (21:04)
--- NOTE | 2021-12-30 21:37 | Hospitalist Progress Note ---
Date of Service December 30, 2021 Assessment & Plan (1) Syncopal episodes: (2) History of CVA (cerebrovascular accident): (3) CAD (coronary artery disease): (4) Aortic valve stenosis: (5) Hypomagnesemia: (6) HTN (hypertension): (7) Type 2 diabetes mellitus: (8) DVT (deep venous thrombosis): Plan: Presented to the ED after sending from Oncology clinic for syncope and Low BP Syncope Possible related to low BP and dehydration received IV fluid with BP improved Amlodipine STOPPED Repeat echocardiogram demonstrating stable borderline severe aortic valve stenosis with concentric left ventricular hypertrophy and hyperdynamic LV function. tele monitor showed no arrhythmia Cardiology consulted - recommended if BP starts to increase while off the amlodipine to increase the Carvedilol Continue monitor closely History of CVA (cerebrovascular accident): CAD Continue Plavix, Lovenox, Lipitor (hold ASA, previous hospitalist team discussed w/ cardiology and hem/onc) Iron deficiency anemia Hgb dropped to 6.9 (12/22) Iron level 15 Received 1 unit PRBC's No sign of active bleeding FOBT negative case discussed with hematology dr. Huntley that recommended GI eval since it will be easy for GI to see the patient while in the hospital in case if GI want to do any procedure that we can transition him on Heparin drip GI consulted for poss. endoscopy Now s/p EGD (12/23) Findings: The examined esophagus was normal. The entire examined stomach was normal. The examined duodenum was normal. Impression: - Normal esophagus. - Normal stomach. - Normal examined duodenum. - No specimens collected. Recommendation: - Return patient to [facility] for ongoing care. -A colonoscopy could be considered, the patient is likely not to tolerate prep very well. if pt can't be on AC, may need vascular surgery due to recent DVT in 10/25 to evaluate for IVC filter Discussed w/ Dr. Huntley, no need for IVC filter at this time Repeat hemoglobin today 9.1 Case discussed in detail at length with patient's Nasreen at the bedside Source of blood loss unknown at this time, patient requiring therapeutic Lovenox twice daily for recent DVT. Plavix now. Aspirin remains on hold GI was notified and no indication for colonoscopy since FOBT was negative, no active bleeding and hgb improves HX of DVT Right LE DVT on 10/22/21 while on coumadin with therapeutic INR He had a stroke while on Eliquis Anticoagulant was changed to Lovenox 80mg BID , further monitoring per anticoagulation clinic Outpatient documentation with hematology recommended to continue Lovenox fci Type 2 diabetes mellitus: Hba1c back in August was 6.7 Continue Lantus and novolog sliding scale Continue monitor BS HTN (hypertension): BP was low at the Oncology office Received gentle IVF Continue to hold Amlodipine Continue Lisinopril 5mg BP stable Paroxysmal atrial fibrillation: rate controlled with Carvedilol Continue anticoagulant with Lovenox ( monitor h/h closely) 12/29: 9 beats of V. tach noted on telemetry IV magnesium ordered Monitor electrolytes Decubitus Ulcer Pressure-induced deep tissue injury of right buttock & unstageable pressure ulcer to coccyx both POA continue daily wound care Wound care on board DVT ppx: lovenox BID CODE: Full code Disposition PT/OT recommended inpatient rehab Admission and Anticipated Discharge Date Admission Date: December 19, 2021 Subjective Pt was seen and examined for follow up of anemia Lying in bed with no acute distress with at bedside Spoke to at bedside and provided with update and answered all her questions Denies any chest pain, palpitation, dizziness and SOB Review of Systems Review of Systems: All systems reviewed & are unremarkable except as noted in Subjective Physical Exam Physical Exam: General- No acute distress Head- atraumatic Eyes- PERRL, EOMI, ENT- oropharynx clear Neck- supple, no JVD Lungs- clear to auscultation Heart- regular rhythm; +systolic murmur Abdomen- normal bowel sounds, soft, nontender Extremities- no calf tenderness Neuro- alert, oriented; PERRL, EOMI; +slurred speech, +right sided hemiparesis Skin- warm & dry Results & Data Results & Data ([facility]) Vital Signs (Past 12 Hours) Vital Signs Temp Pulse Resp BP Pulse Ox O2 Del Method 12/30/21 18:59 37.0 C 71 16 129/69 95 Room Air 12/30/21 15:31 36.6 C 73 17 149/76 H 97 Room Air 12/30/21 11:12 36.7 C 70 18 160/76 H 97 Room Air
[2021-12-31 08:05] LABS: Basophils # (auto) 0.03 K/uL (0-0.2); Basophils % (auto) 0.6 %; Eosinophils # (auto) 0.12 K/uL (0-0.50); Eosinophils % (auto) 2.2 %; Hematocrit (blood only) 30.6 % (40.1-51.0); Hemoglobin 9.1 g/dl (14.0-18.0); Immature Granulocytes # (auto) 0.02 K/uL (0.00-0.02); Immature Granulocytes % (auto) 0.4 %; Lymphocytes # (auto) 1.53 K/uL (1.2-3.4); Lymphocytes % (auto) 28.3 %; Mean Corpuscular Hemoglobin 23.5 pg (25.0-34.0); Mean Corpuscular Hgb Conc 29.7 g/dL (32.0-36.0); Mean Corpuscular Volume 79.1 fL (80.0-100.0); Mean Platelet Volume 10.3 fL (9.4-12.4); Monocytes # (auto) 0.37 K/uL (0.24-0.82); Monocytes % (auto) 6.8 %; Neutrophils # (auto) 3.34 K/uL (1.4-6.5); Neutrophils % (auto) 61.7 %; Platelet Count 308 K/uL (130-400); RDW Coefficient of Variation 20.6 % (11.5-14.5); RDW Standard Deviation 59.3 fL (36.4-46.3); Red Blood Count 3.87 M/uL (4.63-6.08); White Blood Count 5.41 K/ul (4.8-10.8)
[2021-12-31] MEDS: BACLOFEN 10 MG TAB PO SCH (08:05)
[2021-12-31] MEDS: CLOPIDOGREL BISULFATE 75 MG TAB PO SCH (08:06)
[2021-12-31] MEDS: ENOXAPARIN 80 MG/0.8 ML SYR SQ SCH ×2 (08:06→21:50)
[2021-12-31] MEDS: lisinopril 5 MG TAB PO SCH (08:06)
[2021-12-31] MEDS: carvediloL 12.5 MG TAB PO SCH ×2 (08:06→21:49)
[2021-12-31] MEDS: MAGNESIUM OXIDE 400 MG TAB PO SCH (08:06)
[2021-12-31] MEDS: FERROUS SULFATE 325 MG TAB PO SCH (08:06)
[2021-12-31] MEDS: INSULIN ASPART PER UNIT SC SCH ×4 (08:19→21:51)
[2021-12-31 08:50] LABS: Acanthocytes 2+; Anisocytosis Present; Echinocytes 1+; Ovalocytes 1+; Poikilocytosis Present; Polychromasia 1+
[2021-12-31] MEDS: LANTUS PER UNIT CHARGE SQ SCH ×2 (10:17→21:51)
[2021-12-31] MEDS: ATORVASTATIN 40 MG TAB PO SCH (21:49)
[2021-12-31] MEDS: TAMSULOSIN HCL 0.4 MG CAP PO SCH (21:50)
--- NOTE | 2021-12-31 22:14 | Hospitalist Progress Note ---
Date of Service December 31, 2021 Assessment & Plan (1) Syncopal episodes: (2) History of CVA (cerebrovascular accident): (3) CAD (coronary artery disease): (4) Aortic valve stenosis: (5) Hypomagnesemia: (6) HTN (hypertension): (7) Type 2 diabetes mellitus: (8) DVT (deep venous thrombosis): Plan: Presented to the ED after sending from Oncology clinic for syncope and Low BP Syncope Possible related to low BP and dehydration received IV fluid with BP improved Amlodipine discontinued Repeat echocardiogram demonstrating stable borderline severe aortic valve stenosis with concentric left ventricular hypertrophy and hyperdynamic LV function. tele monitor showed no arrhythmia Cardiology consulted - recommended if BP starts to increase while off the amlodipine to increase the Carvedilol Continue monitor closely History of CVA (cerebrovascular accident): CAD Continue Plavix, Lovenox, Lipitor (hold ASA, previous hospitalist team discussed w/ cardiology and hem/onc) Iron deficiency anemia Hgb dropped to 6.9 (12/22) Iron level 15 Received 1 unit PRBC's No sign of active bleeding FOBT negative case discussed with hematology dr. Huntley that recommended GI eval since it will be easy for GI to see the patient while in the hospital in case if GI want to do any procedure that we can transition him on Heparin drip GI consulted for poss. endoscopy Now s/p EGD (12/23) Findings: The examined esophagus was normal. The entire examined stomach was normal. The examined duodenum was normal. Impression: - Normal esophagus. - Normal stomach. - Normal examined duodenum. - No specimens collected. Recommendation: - Return patient to [facility] for ongoing care. -A colonoscopy could be considered, the patient is likely not to tolerate prep very well. if pt can't be on AC, may need vascular surgery due to recent DVT in 10/25 to evaluate for IVC filter Discussed w/ Dr. Huntley, no need for IVC filter at this time Repeat hemoglobin today 9.1 Case discussed in detail at length with patient's Nasreen at the bedside Source of blood loss unknown at this time, patient requiring therapeutic Lovenox twice daily for recent DVT. Plavix now. Aspirin remains on hold GI was notified and no indication for colonoscopy since FOBT was negative, no ac tive bleeding and hgb improves HX of DVT Right LE DVT on 10/22/21 while on coumadin with therapeutic INR He had a stroke while on Eliquis Anticoagulant was changed to Lovenox 80mg BID , further monitoring per anticoagulation clinic Outpatient documentation with hematology recommended to continue Lovenox senior care Type 2 diabetes mellitus: Hba1c back in August was 6.7 Continue Lantus and novolog sliding scale Continue monitor BS HTN (hypertension): BP was low at the Oncology office Received gentle IVF Continue to hold Amlodipine Continue Lisinopril 5mg BP stable Paroxysmal atrial fibrillation: rate controlled with Carvedilol Continue anticoagulant with Lovenox ( monitor h/h closely) 12/29: 9 beats of V. 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 No arrhythmia noted on telemonitor Decubitus Ulcer Pressure-induced deep tissue injury of right buttock & unstageable pressure ulcer to coccyx both POA continue daily wound care Wound care on board DVT ppx: lovenox BID CODE: Full code Disposition PT/OT recommended inpatient rehab Waiting for placement Admission and Anticipated Discharge Date Admission Date: December 19, 2021 Subjective Pt was seen and examined for follow up of anemia Lying in bed with no acute distress with at bedside Pt said that he feels ok Spoke to at bedside and provided with update and answered all her questions Denies any chest pain, palpitation, dizziness and SOB Review of Systems Review of Systems: All systems reviewed & are unremarkable except as noted in Subjective Physical Exam Physical Exam: General- No acute distress Head- atraumatic Eyes- PERRL, EOMI, ENT- oropharynx clear Neck- supple, no JVD Lungs- clear to auscultation Heart- regular rhythm; +systolic murmur Abdomen- normal bowel sounds, soft, nontender Extremities- no calf tenderness Neuro- alert, oriented; PERRL, EOMI; +slurred speech, +right sided hemiparesis Skin- warm & dry Results & Data Results & Data ([facility]) Vital Signs (Past 12 Hours) Vital Signs Temp Pulse Pulse Resp BP Pulse Ox O2 Del Method 12/31/21 20:08 37.1 C 73 17 138/77 97 Room Air 12/31/21 15:49 69 12/31/21 15:32 36.8 C 74 18 124/72 96 Room Air 12/31/21 11:30 36.6 C 78 18 108/65 98 Room Air
[2022-01-01] MEDS: BACLOFEN 10 MG TAB PO SCH (08:22)
[2022-01-01] MEDS: carvediloL 12.5 MG TAB PO SCH ×2 (08:23→21:50)
[2022-01-01] MEDS: lisinopril 5 MG TAB PO SCH (08:23)
[2022-01-01] MEDS: MAGNESIUM OXIDE 400 MG TAB PO SCH (08:23)
[2022-01-01] MEDS: FERROUS SULFATE 325 MG TAB PO SCH (08:23)
[2022-01-01] MEDS: CLOPIDOGREL BISULFATE 75 MG TAB PO SCH (08:23)
[2022-01-01] MEDS: INSULIN ASPART PER UNIT SC SCH ×4 (08:31→21:52)
[2022-01-01] MEDS: LANTUS PER UNIT CHARGE SQ SCH ×2 (08:33→21:53)
[2022-01-01] MEDS: ENOXAPARIN 80 MG/0.8 ML SYR SQ SCH ×2 (08:34→21:51)
--- NOTE | 2022-01-01 18:44 | Hospitalist Progress Note ---
Date of Service January 01, 2022 Assessment & Plan (1) Syncopal episodes: (2) History of CVA (cerebrovascular accident): (3) CAD (coronary artery disease): (4) Aortic valve stenosis: (5) Hypomagnesemia: (6) HTN (hypertension): (7) Type 2 diabetes mellitus: (8) DVT (deep venous thrombosis): Plan: Presented to the ED after sending from Oncology clinic for syncope and Low BP Syncope Possible related to low BP and dehydration received IV fluid with BP improved Amlodipine discontinued Repeat echocardiogram demonstrating stable borderline severe aortic valve stenosis with concentric left ventricular hypertrophy and hyperdynamic LV function. tele monitor showed no arrhythmia Cardiology consulted - recommended if BP starts to increase while off the amlodipine to increase the Carvedilol or consider to increase Lisinopril Continue monitor closely History of CVA (cerebrovascular accident): CAD Continue Plavix, Lovenox, Lipitor (Continue to hold ASA, previous hospitalist team discussed w/ cardiology and hem/onc) will discontinue asa on discharge Iron deficiency anemia Hgb dropped to 6.9 (12/22) Iron level 15 Received 1 unit PRBC's No sign of active bleeding FOBT negative case discussed with hematology dr. Huntley that recommended GI eval since it will be easy for GI to see the patient while in the hospital in case if GI want to do any procedure that we can transition him on Heparin drip GI consulted for poss. endoscopy Now s/p EGD (12/23) Findings: The examined esophagus was normal. The entire examined stomach was normal. The examined duodenum was normal. Impression: - Normal esophagus. - Normal stomach. - Normal examined duodenum. - No specimens collected. Recommendation: - Return patient to [facility] for ongoing care. -A colonoscopy could be considered, the patient is likely not to tolerate prep very well. if pt can't be on AC, may need vascular surgery due to recent DVT in 10/25 to evaluate for IVC filter Discussed w/ Dr. Huntley, no need for IVC filter at this time Repeat hemoglobin today 9.1 Case discussed in detail at length with patient's Nasreen at the bedside Source of blood loss unknown at this time, patient requiring therapeutic Lovenox twice daily for recent DVT. Plavix now. Aspirin remains on hold GI was notified and no indication for colonoscopy since FOBT was negative, no active bleeding and hgb improves HX of DVT Right LE DVT on 10/22/21 while on coumadin with therapeutic INR He had a stroke while on Eliquis Anticoagulant was changed to Lovenox 80mg BID , further monitoring per anticoagulation clinic Outpatient documentation with hematology recommended to continue Lovenox retirement Type 2 diabetes mellitus: Hba1c back in August was 6.7 Continue Lantus and novolog sliding scale Continue monitor BS HTN (hypertension): BP was low at the Oncology office Received gentle IVF Continue to hold Amlodipine Continue Lisinopril 5mg BP stable Paroxysmal atrial fibrillation: rate controlled with Carvedilol Continue anticoagulant with Lovenox ( monitor h/h closely) 12/29: 9 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 No arrhythmia noted on telemonitor Will d/c telemetry Decubitus Ulcer Pressure-induced deep tissue injury of right buttock & unstageable pressure ulcer to coccyx both POA continue daily wound care Wound care on board DVT ppx: lovenox BID CODE: Full code Disposition PT/OT recommended inpatient rehab Plan to transfer to medical Waiting for placement Admission and Anticipated Discharge Date Admission Date: December 19, 2021 Subjective Pt was seen and examined for follow up of anemia Lying in bed with no acute distress with at bedside Pt said that he feels ok I have been talking to every day to provide with update Denies any chest pain, palpitation, dizziness and SOB Review of Systems Review of Systems: All systems reviewed & are unremarkable except as noted in Subjective Physical Exam Physical Exam: General- No acute distress Head- atraumatic Eyes- PERRL, EOMI, ENT- oropharynx clear Neck- supple, no JVD Lungs- clear to auscultation Heart- regular rhythm; +systolic murmur Abdomen- normal bowel sounds, soft, nontender Extremities- no calf tenderness Neuro- alert, oriented; PERRL, EOMI; +slurred speech, +right sided hemiparesis Skin- warm & dry Results & Data Results & Data ([facility]) Vital Signs (Past 12 Hours) Vital Signs Temp Pulse Resp BP Pulse Ox O2 Del Method 01/01/22 16:09 37.3 C 70 17 128/66 97 Room Air 01/01/22 12:16 36.9 C 74 17 148/79 H 97 Room Air 01/01/22 08:02 36.6 C 68 17 148/81 H 96 Room Air
[2022-01-01] MEDS: ATORVASTATIN 40 MG TAB PO SCH (21:52)
[2022-01-01] MEDS: TAMSULOSIN HCL 0.4 MG CAP PO SCH (21:52)
[2022-01-02] MEDS: BACLOFEN 10 MG TAB PO SCH (08:43)
[2022-01-02] MEDS: INSULIN ASPART PER UNIT SC SCH ×4 (08:43→20:34)
[2022-01-02] MEDS: lisinopril 5 MG TAB PO SCH (08:43)
[2022-01-02] MEDS: MAGNESIUM OXIDE 400 MG TAB PO SCH (08:43)
[2022-01-02] MEDS: carvediloL 12.5 MG TAB PO SCH ×2 (08:43→20:34)
[2022-01-02] MEDS: ENOXAPARIN 80 MG/0.8 ML SYR SQ SCH ×2 (08:44→20:33)
[2022-01-02] MEDS: FERROUS SULFATE 325 MG TAB PO SCH (08:44)
[2022-01-02] MEDS: LANTUS PER UNIT CHARGE SQ SCH ×2 (08:44→20:34)
[2022-01-02] MEDS: CLOPIDOGREL BISULFATE 75 MG TAB PO SCH (08:44)
--- NOTE | 2022-01-02 18:40 | Hospitalist Progress Note ---
Date of Service January 02, 2022 Assessment & Plan (1) Syncopal episodes: (2) History of CVA (cerebrovascular accident): (3) CAD (coronary artery disease): (4) Aortic valve stenosis: (5) Hypomagnesemia: (6) HTN (hypertension): (7) Type 2 diabetes mellitus: (8) DVT (deep venous thrombosis): Plan: Presented to the ED after sending from Oncology clinic for syncope and Low BP Syncope Possible related to low BP and dehydration received IV fluid with BP improved Amlodipine discontinued Repeat echocardiogram demonstrating stable borderline severe aortic valve stenosis with concentric left ventricular hypertrophy and hyperdynamic LV function. tele monitor showed no arrhythmia Cardiology consulted - recommended if BP starts to increase while off the amlodipine to increase the Carvedilol or consider to increase Lisinopril Continue monitor closely History of CVA (cerebrovascular accident): CAD Continue Plavix, Lovenox, Lipitor (Continue to hold ASA, previous hospitalist team discussed w/ cardiology and hem/onc) will discontinue asa on discharge Iron deficiency anemia Hgb dropped to 6.9 (12/22) Iron level 15 Received 1 unit PRBC's No sign of active bleeding FOBT negative case discussed with hematology dr. Huntley that recommended GI eval since it will be easy for GI to see the patient while in the hospital in case if GI want to do any procedure that we can transition him on Heparin drip GI consulted for poss. endoscopy Now s/p EGD (12/23) Findings: The examined esophagus was normal. The entire examined stomach was normal. The examined duodenum was normal. Impression: - Normal esophagus. - Normal stomach. - Normal examined duodenum. - No specimens collected. Recommendation: - Return patient to [facility] for ongoing care. -A colonoscopy could be considered, the patient is likely not to tolerate prep very well. if pt can't be on AC, may need vascular surgery due to recent DVT in 10/25 to evaluate for IVC filter Discussed w/ Dr. Huntley, no need for IVC filter at this time Repeat hemoglobin today 9.1 Case discussed in detail at length with patient's Nasreen at the bedside Source of blood loss unknown at this time, patient requiring therapeutic Lovenox twice daily for recent DVT. Plavix now. Aspirin remains on hold GI was notified and no indication for colonoscopy since FOBT was negative, no active bleeding and hgb improves HX of DVT Right LE DVT on 10/22/21 while on coumadin with therapeutic INR He had a stroke while on Eliquis Anticoagulant was changed to Lovenox 80mg BID , further monitoring per anticoagulation clinic Outpatient documentation with hematology recommended to continue Lovenox [facility] Type 2 diabetes mellitus: Hba1c back in August was 6.7 Continue Lantus and novolog sliding scale Continue monitor BS HTN (hypertension): BP was low at the Oncology office Received gentle IVF Continue to hold Amlodipine, will d/c on discharge Continue Lisinopril 5mg BP stable Paroxysmal atrial fibrillation: rate controlled with Carvedilol Continue anticoagulant with Lovenox ( monitor h/h closely) on 12/29 he had 9 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 No arrhythmia noted on telemonitor Will d/c telemetry Decubitus Ulcer Pressure-induced deep tissue injury of right buttock & unstageable pressure ulcer to coccyx both POA continue daily wound care Wound care on board DVT ppx: lovenox BID CODE: Full code Disposition PT/OT recommended inpatient rehab Plan to transfer to medical Waiting for placement Admission and Anticipated Discharge Date Admission Date: December 19, 2021 Subjective Pt was seen and examined for follow up of anemia Lying in bed comfortable with no distress with at bedside I have been talking to every day to provide with update Denies any chest pain, palpitation, dizziness and SOB Review of Systems Review of Systems: All systems reviewed & are unremarkable except as noted in Subjective Physical Exam Physical Exam: General- No acute distress Head- atraumatic Eyes- PERRL, EOMI, ENT- oropharynx clear Neck- supple, no JVD Lungs- clear to auscultation Heart- regular rhythm; +systolic murmur Abdomen- normal bowel sounds, soft, nontender Extremities- no calf tenderness Neuro- alert, oriented; PERRL, EOMI; +slurred speech, +right sided hemiparesis Skin- warm & dry Results & Data Results & Data ([facility]) Vital Signs (Past 12 Hours) Vital Signs Temp Pulse Resp BP Pulse Ox O2 Del Method 01/02/22 15:27 36.7 C 78 17 151/77 H 96 Room Air 01/02/22 11:39 36.7 C 76 18 146/76 H 97 Room Air 01/02/22 07:47 36.6 C 72 17 133/72 96 Room Air
[2022-01-02] MEDS: ATORVASTATIN 40 MG TAB PO SCH (20:34)
[2022-01-02] MEDS: TAMSULOSIN HCL 0.4 MG CAP PO SCH (20:34)
[2022-01-03] MEDS: INSULIN ASPART PER UNIT SC SCH ×4 (09:16→21:29)
[2022-01-03] MEDS: LANTUS PER UNIT CHARGE SQ SCH ×2 (09:19→21:30)
[2022-01-03] MEDS: lisinopril 5 MG TAB PO SCH (09:24)
[2022-01-03] MEDS: BACLOFEN 10 MG TAB PO SCH (09:24)
[2022-01-03] MEDS: FERROUS SULFATE 325 MG TAB PO SCH (09:25)
[2022-01-03] MEDS: CLOPIDOGREL BISULFATE 75 MG TAB PO SCH (09:25)
[2022-01-03] MEDS: MAGNESIUM OXIDE 400 MG TAB PO SCH (09:26)
[2022-01-03] MEDS: carvediloL 12.5 MG TAB PO SCH ×2 (09:26→21:35)
[2022-01-03] MEDS: ENOXAPARIN 80 MG/0.8 ML SYR SQ SCH ×2 (09:29→21:32)
[2022-01-03] MEDS: ATORVASTATIN 40 MG TAB PO SCH (21:33)
[2022-01-03] MEDS: TAMSULOSIN HCL 0.4 MG CAP PO SCH (21:34)
--- NOTE | 2022-01-03 21:41 | Hospitalist Progress Note ---
Date of Service January 03, 2022 Assessment & Plan (1) Syncopal episodes: (2) History of CVA (cerebrovascular accident): (3) CAD (coronary artery disease): (4) Aortic valve stenosis: (5) Hypomagnesemia: (6) HTN (hypertension): (7) Type 2 diabetes mellitus: (8) DVT (deep venous thrombosis): Plan: Presented to the ED after sending from Oncology clinic for syncope and Low BP Syncope Possible related to low BP and dehydration received IV fluid with BP improved Amlodipine discontinued Repeat echocardiogram demonstrating stable borderline severe aortic valve stenosis with concentric left ventricular hypertrophy and hyperdynamic LV function. tele monitor showed no arrhythmia Cardiology consulted - recommended if BP starts to increase while off the amlodipine to increase the Carvedilol or consider to increase Lisinopril Continue monitor closely History of CVA (cerebrovascular accident): CAD Continue Plavix, Lovenox, Lipitor (Continue to hold ASA, previous hospitalist team discussed w/ cardiology and hem/onc) will discontinue asa on discharge Iron deficiency anemia Hgb dropped to 6.9 (12/22) Iron level 15 Received 1 unit PRBC's No sign of active bleeding FOBT negative case discussed with hematology dr. Huntley that recommended GI eval since it will be easy for GI to see the patient while in the hospital in case if GI want to do any procedure that we can transition him on Heparin drip GI consulted for poss. endoscopy S/P EGD on 12/23/21 showed: The examined esophagus was normal. The entire examined stomach was normal. The examined duodenum was normal. Impression: - Normal esophagus. - Normal stomach. - Normal examined duodenum. - No specimens collected. if pt can't be on AC, may need vascular surgery due to recent DVT in 10/25 to evaluate for IVC filter Discussed w/ Dr. Huntley, no need for IVC filter at this time Repeat hemoglobin today 9.1 Case discussed in detail at length with patient's Nasreen at the bedside Source of blood loss unknown at this time, patient requiring therapeutic Lovenox twice daily for recent DVT. Plavix now. Aspirin remains on hold GI was notified and no indication for colonoscopy since FOBT was negative, no active bleeding and hgb improves Continue monitor CBC HX of DVT Right LE DVT on 10/22/21 while on coumadin with therapeutic INR He had a stroke while on Eliquis Anticoagulant was changed to Lovenox 80mg BID , further monitoring per anticoagulation clinic Outpatient documentation with hematology recommended to continue Lovenox fdc Type 2 diabetes mellitus: Hba1c back in August was 6.7 Continue Lantus and novolog sliding scale Continue monitor BS HTN (hypertension): BP was low at the Oncology office Received gentle IVF Continue to hold Amlodipine, will d/c on discharge Continue Lisinopril 5mg BP stable Paroxysmal atrial fibrillation: rate controlled with Carvedilol Continue anticoagulant with Lovenox ( monitor h/h closely) on 12/29 he had 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 No arrhythmia noted on telemonitor Will d/c telemetry Decubitus Ulcer Pressure-induced deep tissue injury of right buttock & unstageable pressure ulcer to coccyx both POA continue daily wound care Wound care on board DVT ppx: lovenox BID CODE: Full code Disposition PT/OT recommended inpatient rehab Waiting for placement Admission and Anticipated Discharge Date Admission Date: December 19, 2021 Subjective Pt was seen and examined for follow up of anemia Lying in bed comfortable with no acute distress with feeding him pt has a good appetite I have been talking to every day to provide with updates Denies any chest pain, palpitation, dizziness and SOB Review of Systems Review of Systems: All systems reviewed & are unremarkable except as noted in Subjective Physical Exam Physical Exam: General- No acute distress Head- atraumatic Eyes- PERRL, EOMI, ENT- oropharynx clear Neck- supple, no JVD Lungs- clear to auscultation Heart- regular rhythm; +systolic murmur Abdomen- normal bowel sounds, soft, nontender Extremities- no calf tenderness Neuro- alert, oriented; PERRL, EOMI; +slurred speech, +right sided hemiparesis Skin- warm & dry Results & Data Results & Data ([facility]) Vital Signs (Past 12 Hours) Vital Signs Temp Pulse Resp BP Pulse Ox O2 Del Method 01/03/22 21:21 37.2 C 77 16 156/81 H 96 Room Air 01/03/22 17:07 37.0 C 69 18 147/79 H 96 Room Air
[2022-01-04 06:42] LABS: Hematocrit (blood only) 31.5 % (40.1-51.0); Hemoglobin 9.5 g/dl (14.0-18.0); Mean Corpuscular Hemoglobin 23.7 pg (25.0-34.0); Mean Corpuscular Hgb Conc 30.2 g/dL (32.0-36.0); Mean Corpuscular Volume 78.6 fL (80.0-100.0); Mean Platelet Volume 10.5 fL (9.4-12.4); Platelet Count 294 K/uL (130-400); RDW Coefficient of Variation 19.9 % (11.5-14.5); RDW Standard Deviation 56.6 fL (36.4-46.3); Red Blood Count 4.01 M/uL (4.63-6.08); White Blood Count 5.95 K/ul (4.8-10.8)
[2022-01-04] MEDS ORDERED: MAGNESIUM SULFATE / D5W 1 GM/100 ML BAG IV ONE (08:07)
[2022-01-04] MEDS: carvediloL 12.5 MG TAB PO SCH ×2 (09:04→21:53)
[2022-01-04] MEDS: FERROUS SULFATE 325 MG TAB PO SCH (09:05)
[2022-01-04] MEDS: CLOPIDOGREL BISULFATE 75 MG TAB PO SCH (09:05)
[2022-01-04] MEDS: MAGNESIUM OXIDE 400 MG TAB PO SCH ×2 (09:05→21:54)
[2022-01-04] MEDS: lisinopril 5 MG TAB PO SCH (09:05)
[2022-01-04] MEDS: ENOXAPARIN 80 MG/0.8 ML SYR SQ SCH ×2 (09:05→21:47)
[2022-01-04] MEDS: BACLOFEN 10 MG TAB PO SCH (09:09)
[2022-01-04] MEDS: LANTUS PER UNIT CHARGE SQ SCH ×2 (09:10→21:47)
[2022-01-04] MEDS: INSULIN ASPART PER UNIT SC SCH ×4 (09:10→21:46)
--- NOTE | 2022-01-04 21:20 | Hospitalist Progress Note ---
Date of Service January 04, 2022 Assessment & Plan (1) Syncopal episodes: (2) History of CVA (cerebrovascular accident): (3) CAD (coronary artery disease): (4) Aortic valve stenosis: (5) Hypomagnesemia: (6) HTN (hypertension): (7) Type 2 diabetes mellitus: (8) DVT (deep venous thrombosis): Plan: Presented to the ED after sending from Oncology clinic for syncope and Low BP Syncope Possible related to low BP and dehydration received IV fluid with BP improved Amlodipine discontinued Repeat echocardiogram demonstrating stable borderline severe aortic valve stenosis with concentric left ventricular hypertrophy and hyperdynamic LV function. tele monitor showed no arrhythmia Cardiology consulted - recommended if BP starts to increase while off the amlodipine to increase the Carvedilol or consider to increase Lisinopril Continue monitor closely History of CVA (cerebrovascular accident): CAD Continue Plavix, Lovenox, Lipitor (Continue to hold ASA, previous hospitalist team discussed w/ cardiology and hem/onc) will discontinue asa on discharge Iron deficiency anemia Hgb dropped to 6.9 (12/22) Iron level 15 Received 1 unit PRBC's No sign of active bleeding FOBT negative case discussed with hematology dr. Huntley that recommended GI eval since it will be easy for GI to see the patient while in the hospital in case if GI want to do any procedure that we can transition him on Heparin drip GI consulted for poss. endoscopy S/P EGD on 12/23/21 showed: The examined esophagus was normal. The entire examined stomach was normal. The examined duodenum was normal. Impression: - Normal esophagus. - Normal stomach. - Normal examined duodenum. - No specimens collected. if pt can't be on AC, may need vascular surgery due to recent DVT in 10/25 to evaluate for IVC filter Discussed w/ Dr. Huntley, no need for IVC filter at this time Repeat hemoglobin today 9.5 Case discussed in detail at length with patient's Nasreen at the bedside Source of blood loss unknown at this time, patient requiring therapeutic Lovenox twice daily for recent DVT. Plavix now. Aspirin remains on hold GI was notified and no indication for colonoscopy since FOBT was negative, no active bleeding and hgb improves Stable HX of DVT Right LE DVT on 10/22/21 while on coumadin with therapeutic INR He had a stroke while on Eliquis Anticoagulant was changed to Lovenox 80mg BID , further monitoring per anticoagulation clinic Outpatient documentation with hematology recommended to continue Lovenox half-way Type 2 diabetes mellitus: Hba1c back in August was 6.7 Continue Lantus and novolog sliding scale Continue monitor BS HTN (hypertension): BP was low at the Oncology office Received gentle IVF Continue to hold Amlodipine, will d/c on discharge Continue Lisinopril 5mg BP stable Paroxysmal atrial fibrillation: rate controlled with Carvedilol Continue anticoagulant with Lovenox ( monitor h/h closely) on 12/29 he had 9 beats of V. tach noted on front end alignment specialist electrolytes No arrhythmia noted on telemonitor Will d/c telemetry Hypomagnesemia Mg 1.5 today Magnesium replaced continue monitor Decubitus Ulcer Pressure-induced deep tissue injury of right buttock & unstageable pressure ulcer to coccyx both POA continue daily wound care Wound care on board DVT ppx: lovenox BID CODE: Full code Disposition PT/OT recommended inpatient rehab Waiting for placement Admission and Anticipated Discharge Date Admission Date: December 19, 2021 Subjective Pt was seen and examined for follow up Lying in bed comfortable with no acute distress with at bedside I talked to every day to provide with updates Denies any chest pain, palpitation, dizziness and SOB Review of Systems Review of Systems: All systems reviewed & are unremarkable except as noted in Subjective Physical Exam Physical Exam: General- No acute distress Head- atraumatic Eyes- PERRL, EOMI, ENT- oropharynx clear Neck- supple, no JVD Lungs- clear to auscultation Heart- regular rhythm; +systolic murmur Abdomen- normal bowel sounds, soft, nontender Extremities- no calf tenderness Neuro- alert, oriented; PERRL, EOMI; +slurred speech, +right sided hemiparesis Skin- warm & dry Results & Data Results & Data ([facility]) Vital Signs (Past 12 Hours) Vital Signs Temp Pulse Resp BP Pulse Ox O2 Del Method 01/04/22 16:07 37.1 C 73 18 134/73 96 Room Air
[2022-01-04] MEDS: ATORVASTATIN 40 MG TAB PO SCH (21:54)
[2022-01-04] MEDS: TAMSULOSIN HCL 0.4 MG CAP PO SCH (21:55)
[2022-01-05] MEDS: MAGNESIUM OXIDE 400 MG TAB PO SCH ×2 (08:58→20:17)
[2022-01-05] MEDS: carvediloL 12.5 MG TAB PO SCH ×2 (08:58→20:18)
[2022-01-05] MEDS: CLOPIDOGREL BISULFATE 75 MG TAB PO SCH (08:58)
[2022-01-05] MEDS: FERROUS SULFATE 325 MG TAB PO SCH (08:58)
[2022-01-05] MEDS: BACLOFEN 10 MG TAB PO SCH (08:58)
[2022-01-05] MEDS: lisinopril 5 MG TAB PO SCH (08:58)
[2022-01-05] MEDS: ENOXAPARIN 80 MG/0.8 ML SYR SQ SCH ×2 (09:00→20:18)
[2022-01-05] MEDS: INSULIN ASPART PER UNIT SC SCH ×4 (09:22→20:16)
[2022-01-05] MEDS: LANTUS PER UNIT CHARGE SQ SCH ×2 (09:22→20:26)
[2022-01-05] MEDS: TAMSULOSIN HCL 0.4 MG CAP PO SCH (20:17)
[2022-01-05] MEDS: ATORVASTATIN 40 MG TAB PO SCH (20:17)
--- NOTE | 2022-01-05 23:49 | Hospitalist Progress Note ---
Date of Service January 05, 2022 Assessment & Plan (1) Syncopal episodes: (2) History of CVA (cerebrovascular accident): (3) CAD (coronary artery disease): (4) Aortic valve stenosis: (5) Hypomagnesemia: (6) HTN (hypertension): (7) Type 2 diabetes mellitus: (8) DVT (deep venous thrombosis): Plan: Presented to the ED after sending from Oncology clinic for syncope and Low BP Syncope Possible related to low BP and dehydration received IV fluid with BP improved Amlodipine discontinued Repeat echocardiogram demonstrating stable borderline severe aortic valve stenosis with concentric left ventricular hypertrophy and hyperdynamic LV function. tele monitor showed no arrhythmia Cardiology consulted - recommended if BP starts to increase while off the amlodipine to increase the Carvedilol or consider to increase Lisinopril Continue monitor closely History of CVA (cerebrovascular accident): CAD Continue Plavix, Lovenox, Lipitor (Continue to hold ASA, previous hospitalist team discussed w/ cardiology and hem/onc) will discontinue asa on discharge Iron deficiency anemia Hgb dropped to 6.9 (12/22) Iron level 15 Received 1 unit PRBC's No sign of active bleeding FOBT negative case discussed with hematology dr. Huntley that recommended GI eval since it will be easy for GI to see the patient while in the hospital in case if GI want to do any procedure that we can transition him on Heparin drip GI consulted for poss. endoscopy S/P EGD on 12/23/21 showed: The examined esophagus was normal. The entire examined stomach was normal. The examined duodenum was normal. Impression: - Normal esophagus. - Normal stomach. - Normal examined duodenum. - No specimens collected. if pt can't be on AC, may need vascular surgery due to recent DVT in 10/25 to evaluate for IVC filter Discussed w/ Dr. Huntley, no need for IVC filter at this time Repeat hemoglobin today 9.5 Case discussed in detail at length with patient's Nasreen at the bedside Source of blood loss unknown at this time, patient requiring therapeutic Lovenox twice daily for recent DVT. Plavix now. Aspirin remains on hold GI was notified and no indication for colonoscopy since FOBT was negative, no active bleeding and hgb improves Stable HX of DVT Right LE DVT on 10/22/21 while on coumadin with therapeutic INR He had a stroke while on Eliquis Anticoagulant was changed to Lovenox 80mg BID , further monitoring per anticoagulation clinic Outpatient documentation with hematology recommended to continue Lovenox [facility] Type 2 diabetes mellitus: Hba1c back in August was 6.7 Continue Lantus and novolog sliding scale Continue monitor BS HTN (hypertension): BP was low at the Oncology office Received gentle IVF Continue to hold Amlodipine, will d/c on discharge Continue Lisinopril 5mg BP stable Paroxysmal atrial fibrillation: rate controlled with Carvedilol Continue anticoagulant with Lovenox ( monitor h/h closely) on 12/29 he had 9 beats of V. tach noted on hostel parent electrolytes No arrhythmia noted on telemonitor Will d/c telemetry Hypomagnesemia Mg 1.5 Magnesium replaced continue monitor Decubitus Ulcer Pressure-induced deep tissue injury of right buttock & unstageable pressure ulcer to coccyx both POA continue daily wound care Wound care on board DVT ppx: lovenox BID CODE: Full code Disposition PT/OT recommended inpatient rehab Waiting for placement Admission and Anticipated Discharge Date Admission Date: December 19, 2021 Subjective Pt was seen and examined for follow up Lying in bed comfortable with no acute distress with at bedside I spoke to every day to provide with updates and answered her questions Waiting for placement Denies any chest pain, palpitation, dizziness and SOB Review of Systems Review of Systems: All systems reviewed & are unremarkable except as noted in Subjective Physical Exam Physical Exam: General- No acute distress Head- atraumatic Eyes- PERRL, EOMI, ENT- oropharynx clear Neck- supple, no JVD Lungs- clear to auscultation Heart- regular rhythm; +systolic murmur Abdomen- normal bowel sounds, soft, nontender Extremities- no calf tenderness Neuro- alert, oriented; PERRL, EOMI; +slurred speech, +right sided hemiparesis Skin- warm & dry Results & Data Results & [facility] ([facility]) Vital Signs (Past 12 Hours) Vital Signs Temp Pulse Pulse Resp BP Pulse Ox O2 Del Method 01/05/22 20:51 37.1 C 77 20 112/65 95 Room Air 01/05/22 15:38 37.0 C 65 20 122/69 97 Room Air
[2022-01-06] MEDS: INSULIN ASPART PER UNIT SC SCH ×4 (08:35→21:03)
[2022-01-06] MEDS: LANTUS PER UNIT CHARGE SQ SCH ×2 (08:36→21:20)
[2022-01-06] MEDS: ENOXAPARIN 80 MG/0.8 ML SYR SQ SCH ×2 (08:44→21:12)
[2022-01-06] MEDS: lisinopril 5 MG TAB PO SCH (08:46)
[2022-01-06] MEDS: MAGNESIUM OXIDE 400 MG TAB PO SCH ×2 (08:46→21:12)
[2022-01-06] MEDS: carvediloL 12.5 MG TAB PO SCH ×2 (08:46→21:12)
[2022-01-06] MEDS: FERROUS SULFATE 325 MG TAB PO SCH (08:47)
[2022-01-06] MEDS: CLOPIDOGREL BISULFATE 75 MG TAB PO SCH (08:47)
[2022-01-06] MEDS: BACLOFEN 10 MG TAB PO SCH (08:48)
--- NOTE | 2022-01-06 16:02 | Hospitalist Progress Note ---
Date of Service January 06, 2022 Assessment & Plan (1) Syncopal episodes: Plan: Presented to the ED after sending from Oncology clinic for syncope and Low BP Syncope Possible related to low BP and dehydration and was complicated by low hemoglobin received IV fluid with BP improved Amlodipine discontinued No more syncope since admission and the patient has been feeling a lot better (2) Anemia: Plan: Iron deficiency anemia Hgb dropped to 6.9 (12/22) Iron level 15 Received 1 unit PRBC's No sign of active bleeding FOBT negative Case discussed with hematology dr. Huntley that recommended GI eval since it will be easy for GI to see the patient while in the hospital in case if GI want to do any procedure that we can transition him on Heparin drip GI consulted for poss. endoscopy S/P EGD on 12/23/21 showed: The examined esophagus was normal. The entire examined stomach was normal. The examined duodenum was normal. Impression: - Normal esophagus. - Normal stomach. - Normal examined duodenum. - No specimens collected. if pt can't be on AC, may need vascular surgery due to recent DVT in 10/25 to evaluate for IVC filter Discussed w/ Dr. Huntley, no need for IVC filter at this time Repeat hemoglobin following blood transfusion is 9.5 Source of blood loss unknown at this time, patient requiring therapeutic Lovenox twice daily for recent DVT. Plavix now. Aspirin remains on hold GI was notified and no indication for colonoscopy since FOBT was negative, no active bleeding and hgb improves We will monitor CBC (3) History of CVA (cerebrovascular accident): Plan: History of CVA (cerebrovascular accident): Has dense right hemiplegia Has been moving left side almost normal Getting physical therapy and getting stronger as per the patient and the (4) CAD (coronary artery disease): Plan: CAD Paroxysmal atrial fibrillation: rate controlled with Carvedilol Continue anticoagulant with Lovenox ( monitor h/h closely) on 12/29 he had 9 beats of V. tach noted on organ pipe maker metal electrolytes No arrhythmia noted on telemonitor Will d/c telemetry Continue Plavix, Lovenox, Lipitor (Continue to hold ASA, previous hospitalist team discussed w/ cardiology and hem/onc) will discontinue asa on discharge (5) Aortic valve stenosis: Plan: Repeat echocardiogram demonstrating stable borderline severe aortic valve stenosis with concentric left ventricular hypertrophy and hyperdynamic LV function. tele monitor showed no arrhythmia Cardiology consulted - recommended if BP starts to increase while off the amlodipine to increase the Carvedilol or consider to increase Lisinopril Continue monitor closely (6) Hypomagnesemia: Plan: Supplemented and normalized (7) HTN (hypertension): Plan: Reasonably controlled with medicine HTN (hypertension): BP was low at the Oncology office Received gentle IVF Continue to hold Amlodipine, will d/c on discharge Continue Lisinopril 5mg BP stable (8) Type 2 diabetes mellitus: Plan: Type 2 diabetes mellitus: Hba1c back in August was 6.7 Continue Lantus and novolog sliding scale Continue monitor BS (9) DVT (deep venous thrombosis): Plan: HX of DVT Right LE DVT on 10/22/21 while on coumadin with therapeutic INR He had a stroke while on Eliquis Anticoagulant was changed to Lovenox 80mg BID , further monitoring per anticoagulation clinic Outpatient documentation with hematology recommended to continue Lovenox longter m Decubitus Ulcer Pressure-induced deep tissue injury of right buttock & unstageable pressure ulcer to coccyx both POA continue daily wound care Wound care on board DVT ppx: lovenox BID CODE: Full code Disposition PT/OT recommended inpatient rehab Waiting for placement Discussed with the in detail and answered all of her questions Admission and Anticipated Discharge Date Admission Date: December 19, 2021 Subjective 01/06/2022 The patient was seen and examined in medical floor in presence of the He has been stable and has been getting physical therapy Denies any chest pain, palpitation or shortness of breath, no abdominal pain nausea no vomiting and no numbness and or tingling in the extremities Review of Systems Review of Systems: All systems reviewed and are unremarkable except as noted below Physical Exam Physical Exam: Lying in bed comfortably Constitutional: well developed, well nourished, + ill appearing and average body habitus Eyes: PERRL, conjunctivae normal, anicteric sclerae ENMT: external ear and nose normal, oropharynx normal Neck: trachea midline, no thyromegaly Respiratory: no respiratory distress Auscultation: lungs clear to auscultation bilaterally Cardiovascular: Rate/Rhythm: regular rate and regular rhythm; not tachycardic Heart Sounds: normal S1, normal S2 and + murmur (3/6 ESM over precordium) Extremities: + edema (On the right lower extremity) and + varicosities Gastrointestinal (Abdomen): Inspection/Auscultation: normal bowel sounds; abdomen not distended Percussion/Palpation: abdomen soft; abdomen nontender Musculoskeletal: No acute arthritis in any joint Neurologic: Alert, awake and oriented x3. Has dense right hemiplegia Psychiatric: A+Ox3, euthymic affect Lymphatic: no cervical or axillary lymphadenopathy Results & Data Results & Data ([facility]) Vital Signs (Past 12 Hours) Vital Signs Temp Pulse Pulse Resp BP Pulse Ox O2 Del Method 01/06/22 15:53 37.2 C 72 20 145/75 H 97 Room Air 01/06/22 11:13 36.9 C 68 18 148/70 H 99 Room Air 01/06/22 07:59 37.0 C 66 18 150/70 H 01/06/22 06:20 36.8 C 70 20 155/72 H 98 Room Air Medications Administered Current Inpatient Medications Acetaminophen (Acetaminophen 325 Mg Tab) 650 mg PO Q4H PRN PRN Reason: Moderate Pain Stop: 01/16/22 17:22 Atorvastatin Calcium (Atorvastatin 40 Mg Tab) 80 mg PO QPM SUMA Stop: 01/16/22 20:59 Last Admin: 01/05/22 20:17 Dose: 80 mg Baclofen (Baclofen 10 Mg Tab) 5 mg PO QAM SUMA Stop: 01/17/22 08:59 Last Admin: 01/06/22 08:48 Dose: 5 mg Carvedilol (Carvedilol 12.5 Mg Tab) 12.5 mg PO BID SUMA Stop: 01/16/22 20:59 Last Admin: 01/06/22 08:46 Dose: 12.5 mg Clopidogrel Bisulfate (Clopidogrel Bisulfate 75 Mg Tab) 75 mg PO QAM SUMA Stop: 01/17/22 08:59 Last Admin: 01/06/22 08:47 Dose: 75 mg Dextrose (Dextrose 50% 50 Ml Syringe) 25 - 50 ml IV UD PRN; Protocol PRN Reason: Hypoglycemia Protocol Stop: 01/16/22 16:16 Enoxaparin Sodium (Enoxaparin 80 Mg/0.8 Ml Syr) 80 mg SQ AMHS SUMA Stop: 01/16/22 20:59 Last Admin: 01/06/22 08:44 Dose: 80 mg Ferrous Sulfate (Ferrous Sulfate 325 Mg Tab) 325 mg PO QAM SUMA Stop: 01/19/22 08:59 Last Admin: 01/06/22 08:47 Dose: 325 mg Glucagon (Glucagon For Inj 1 Mg Vial) 1 mg SQ UD PRN; Protocol PRN Reason: Hypoglycemia Protocol Stop: 01/16/22 16:16 Glucose (Glucose 40% Gel 15 Gm Tube) 15 - 30 gm PO UD PRN; Protocol PRN Reason: Hypoglycemia Protocol Stop: 01/16/22 16:16 Glucose (Glucose 10 Tab/Tube) 4 - 8 tab PO UD PRN; Protocol PRN Reason: Hypoglycemia Treatment Stop: 01/16/22 16:16 Insulin Aspart (Insulin Aspart Per Unit) 0 units SC ACHS SUMA Stop: 01/16/22 16:29 Last Admin: 01/06/22 12:37 Dose: 7 units Insulin Glargine (Lantus Per Unit Charge) 14 units SQ QAM SUMA Stop: 01/16/22 08:59 Last Admin: 01/06/22 08:36 Dose: 14 units Insulin Glargine (Lantus Per Unit Charge) 10 units SQ QPM SUMA Stop: 01/16/22 20:59 Last Admin: 01/05/22 20:26 Dose: 10 units Lisinopril (Lisinopril 5 Mg Tab) 5 mg PO DAILY SUMA Stop: 01/17/22 08:59 Last Admin: 01/06/22 08:46 Dose: 5 mg Magnesium Oxide (Magnesium Oxide 400 Mg Tab) 400 mg PO BID [facility] Stop: 02/03/22 08:59 Last Admin: 01/06/22 08:46 Dose: 400 mg Miscellaneous (Carbohydrates For Hypoglycemia ) 15 - 30 gm PO UD PRN PRN Reason: Hypoglycemia Protocol Stop: 01/16/22 16:16 Ondansetron HCl (Ondansetron Inj 2 Mg/Ml 2 Ml Vial) 4 mg IV Q4H PRN PRN Reason: Nausea And Vomiting Stop: 01/16/22 17:22 Tamsulosin HCl (Tamsulosin Hcl 0.4 Mg Cap) 0.4 mg PO HS [facility] Stop: 01/16/22 20:59 Last Admin: 01/05/22 20:17 Dose: 0.4 mg
[2022-01-06] MEDS: ATORVASTATIN 40 MG TAB PO SCH (21:12)
[2022-01-06] MEDS: TAMSULOSIN HCL 0.4 MG CAP PO SCH (21:13)
[2022-01-07 06:23] LABS: Basophils # (auto) 0.02 K/uL (0-0.2); Basophils % (auto) 0.4 %; Eosinophils # (auto) 0.19 K/uL (0-0.50); Eosinophils % (auto) 3.9 %; Hematocrit (blood only) 33.7 % (40.1-51.0); Hemoglobin 10.3 g/dl (14.0-18.0); Immature Granulocytes # (auto) 0.01 K/uL (0.00-0.02); Immature Granulocytes % (auto) 0.2 %; Lymphocytes # (auto) 1.67 K/uL (1.2-3.4); Lymphocytes % (auto) 33.9 %; Mean Corpuscular Hemoglobin 24.1 pg (25.0-34.0); Mean Corpuscular Hgb Conc 30.6 g/dL (32.0-36.0); Mean Corpuscular Volume 78.9 fL (80.0-100.0); Mean Platelet Volume 9.8 fL (9.4-12.4); Monocytes # (auto) 0.33 K/uL (0.24-0.82); Monocytes % (auto) 6.7 %; Neutrophils % (auto) 54.9 %; Platelet Count 260 K/uL (130-400); RDW Coefficient of Variation 19.7 % (11.5-14.5); Red Blood Count 4.27 M/uL (4.63-6.08); White Blood Count 4.92 K/ul (4.8-10.8)
[2022-01-07 07:06] LABS: BUN Creatinine Ratio 29.4 (10-20); Calcium 8.4 mg/dl (8.5-10.1); Creatinine Clr Calc Pharmacy 157.9 ml/min; Est GFR (African American) 132.6 ml/min; Est GFR (Non-African American) 114.4 ml/min; Magnesium 1.6 mg/dl (1.7-2.4); Potassium 4.1 mmol/L (3.5-5.1)
[2022-01-07] MEDS: carvediloL 12.5 MG TAB PO SCH ×2 (09:22→21:07)
[2022-01-07] MEDS: BACLOFEN 10 MG TAB PO SCH (09:22)
[2022-01-07] MEDS: INSULIN ASPART PER UNIT SC SCH ×4 (09:22→21:05)
[2022-01-07] MEDS: ENOXAPARIN 80 MG/0.8 ML SYR SQ SCH ×2 (09:23→21:07)
[2022-01-07] MEDS: LANTUS PER UNIT CHARGE SQ SCH ×2 (09:23→21:13)
[2022-01-07] MEDS: CLOPIDOGREL BISULFATE 75 MG TAB PO SCH (09:23)
[2022-01-07] MEDS: FERROUS SULFATE 325 MG TAB PO SCH (09:23)
[2022-01-07] MEDS: lisinopril 5 MG TAB PO SCH (09:24)
[2022-01-07] MEDS: MAGNESIUM OXIDE 400 MG TAB PO SCH ×3 (09:24→21:08)
--- NOTE | 2022-01-07 16:41 | Hospitalist Progress Note ---
Date of Service January 07, 2022 Assessment & Plan (1) Syncopal episodes: Plan: Presented to the ED after sending from Oncology clinic for syncope and Low BP Syncope Possible related to low BP and dehydration and was complicated by low hemoglobin received IV fluid with BP improved Amlodipine discontinued No more syncope since admission and the patient has been feeling a lot better (2) Anemia: Plan: Iron deficiency anemia Hgb dropped to 6.9 (12/22) Iron level 15 Received 1 unit PRBC's No sign of active bleeding FOBT negative Case discussed with hematology dr. Huntley that recommended GI eval since it will be easy for GI to see the patient while in the hospital in case if GI want to do any procedure that we can transition him on Heparin drip GI consulted for poss. endoscopy S/P EGD on 12/23/21 showed: The examined esophagus was normal. The entire examined stomach was normal. The examined duodenum was normal. Impression: - Normal esophagus. - Normal stomach. - Normal examined duodenum. - No specimens collected. if pt can't be on AC, may need vascular surgery due to recent DVT in 10/25 to evaluate for IVC filter Discussed w/ Dr. Huntley, no need for IVC filter at this time Repeat hemoglobin following blood transfusion is 9.5 Source of blood loss unknown at this time, patient requiring therapeutic Lovenox twice daily for recent DVT. Plavix now. Aspirin remains on hold GI was notified and no indication for colonoscopy since FOBT was negative, no active bleeding and hgb improves We will monitor CBC-hemoglobin went up to more than 10 (3) History of CVA (cerebrovascular accident): Plan: History of CVA (cerebrovascular accident): Has dense right hemiplegia Has been moving left side almost normal Getting physical therapy and getting stronger as per the patient and the He has to continue with physical therapy (4) CAD (coronary artery disease): Plan: CAD Paroxysmal atrial fibrillation: rate controlled with Carvedilol Continue anticoagulant with Lovenox ( monitor h/h closely) on 12/29 he had 9 beats of V. 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 tele monitor showed no arrhythmia Cardiology consulted - recommended if BP starts to increase while off the amlodipine to increase the Carvedilol or consider to increase Lisinopril Continue monitor closely (6) Hypomagnesemia: Plan: Supplemented and normalized Magnesium level is 1.6-oral supplement increased to 3 times daily (7) HTN (hypertension): Plan: Reasonably controlled with medicine HTN (hypertension): BP was low at the Oncology office Received gentle IVF Continue to hold Amlodipine, will d/c on discharge Continue Lisinopril 5mg BP stable (8) Type 2 diabetes mellitus: Plan: Type 2 diabetes mellitus: Hba1c back in August was 6.7 Continue Lantus and novolog sliding scale Continue monitor BS (9) DVT (deep venous thrombosis): Plan: HX of DVT Right LE DVT on 10/22/21 while on coumadin with therapeutic INR He had a stroke while on Eliquis Anticoagulant was changed to Lovenox 80mg BID , further monitoring per anticoagulation clinic Outpatient documentation with hematology recommended to continue Lovenox half-way Decubitus Ulcer Pressure-induced deep tissue injury of right buttock & unstageable pressure ulcer to coccyx both POA continue daily wound care Wound care on board DVT ppx: lovenox BID CODE: Full code Disposition PT/OT recommended inpatient rehab Waiting for placement Discussed with the in detail and answered all of her questions Admission and Anticipated Discharge Date Admission Date: December 19, 2021 Subjective 01/06/2022 The patient was seen and examined in medical floor in presence of the He has been stable and has been getting physical therapy Denies any chest pain, palpitation or shortness of breath, no abdominal pain nausea no vomiting and no numbness and or tingling in the extremities 01/07/2022 The patient was seen and examined in medical floor in presence of the He has been stable and awaiting placement Review of Systems Review of Systems: All systems reviewed and are unremarkable except as noted below Physical Exam Physical Exam: Lying in bed comfortably Constitutional: well developed, well nourished, + ill appearing and average body habitus Eyes: PERRL, conjunctivae normal, anicteric sclerae ENMT: external ear and nose normal, oropharynx normal Neck: trachea midline, no thyromegaly Respiratory: no respiratory distress Auscultation: lungs clear to auscul tation bilaterally Cardiovascular: Rate/Rhythm: regular rate and regular rhythm; not tachycardic Heart Sounds: normal S1, normal S2 and + murmur (3/6 ESM over precordium) Extremities: + edema (On the right lower extremity) and + varicosities Gastrointestinal (Abdomen): Inspection/Auscultation: normal bowel sounds; abdomen not distended Percussion/Palpation: abdomen soft; abdomen nontender Psychiatric: A+Ox3, euthymic affect Lymphatic: no cervical or axillary lymphadenopathy Results & Data Results & Data ([facility]) Vital Signs (Past 12 Hours) Vital Signs Temp Pulse Resp BP Pulse Ox O2 Del Method 01/07/22 16:00 37.3 C 73 20 158/73 H 98 Room Air 01/07/22 11:00 Room Air 01/07/22 07:30 37 C 69 20 152/77 H 96 Room Air Laboratory Results Short CBC 01/07/22 Range/Units 06:02 WBC 4.92 (4.8-10.8) K/ul Hgb 10.3 L (14.0-18.0) g/dl Hct 33.7 L (40.1-51.0) % Plt Count 260 (130-400) K/uL BMP 01/07/22 06:02 Sodium 135 L Potassium 4.1 Chloride 104 Carbon Dioxide 25 BUN 15 Creatinine 0.51 L Glucose 128 H Calcium 8.4 L Medications Administered Current Inpatient Medications Acetaminophen (Acetaminophen 325 Mg Tab) 650 mg PO Q4H PRN PRN Reason: Moderate Pain Stop: 01/16/22 17:22 Atorvastatin Calcium (Atorvastatin 40 Mg Tab) 80 mg PO QPM [facility] Stop: 01/16/22 20:59 Last Admin: 01/06/22 21:12 Dose: 80 mg Baclofen (Baclofen 10 Mg Tab) 5 mg PO QAM [facility] Stop: 01/17/22 08:59 Last Admin: 01/07/22 09:22 Dose: 5 mg Carvedilol (Carvedilol 12.5 Mg Tab) 12.5 mg PO BID [facility] Stop: 01/16/22 20:59 Last Admin: 01/07/22 09:22 Dose: 12.5 mg Clopidogrel Bisulfate (Clopidogrel Bisulfate 75 Mg Tab) 75 mg PO QAM [facility] Stop: 01/17/22 08:59 Last Admin: 01/07/22 09:23 Dose: 75 mg Dextrose (Dextrose 50% 50 Ml Syringe) 25 - 50 ml IV UD PRN; Protocol PRN Reason: Hypoglycemia Protocol Stop: 01/16/22 16:16 Enoxaparin Sodium (Enoxaparin 80 Mg/0.8 Ml Syr) 80 mg SQ AMHS [facility] Stop: 01/16/22 20:59 Last Admin: 01/07/22 09:23 Dose: 80 mg Ferrous Sulfate (Ferrous Sulfate 325 Mg Tab) 325 mg PO QAM [facility] Stop: 01/19/22 08:59 Last Admin: 01/07/22 09:23 Dose: 325 mg Glucagon (Glucagon For Inj 1 Mg Vial) 1 mg SQ UD PRN; Protocol PRN Reason: Hypoglycemia Protocol Stop: 01/16/22 16:16 Glucose (Glucose 40% Gel 15 Gm Tube) 15 - 30 gm PO UD PRN; Protocol PRN Reason: Hypoglycemia Protocol Stop: 01/16/22 16:16 Glucose (Glucose 10 Tab/Tube) 4 - 8 tab PO UD PRN; Protocol PRN Reason: Hypoglycemia Treatment Stop: 01/16/22 16:16 Insulin Aspart (Insulin Aspart Per Unit) 0 units SC ACHS [facility] Stop: 01/16/22 16:29 Last Admin: 01/07/22 12:56 Dose: 6 units Insulin Glargine (Lantus Per Unit Charge) 14 units SQ QAM [facility] Stop: 01/16/22 08:59 Last Admin: 01/07/22 09:23 Dose: 14 units Insulin Glargine (Lantus Per Unit Charge) 10 units SQ QPM [facility] Stop: 01/16/22 20:59 Last Admin: 01/06/22 21:20 Dose: 10 units Lisinopril (Lisinopril 5 Mg Tab) 5 mg PO DAILY [facility] Stop: 01/17/22 08:59 Last Admin: 01/07/22 09:24 Dose: 5 mg Magnesium Oxide (Magnesium Oxide 400 Mg Tab) 400 mg PO TID [facility] Stop: 02/06/22 08:59 Last Admin: 01/07/22 14:10 Dose: 400 mg Miscellaneous (Carbohydrates For Hypoglycemia ) 15 - 30 gm PO UD PRN PRN Reason: Hypoglycemia Protocol Stop: 01/16/22 16:16 Ondansetron HCl (Ondansetron Inj 2 Mg/Ml 2 Ml Vial) 4 mg IV Q4H PRN PRN Reason: Nausea And Vomiting Stop: 01/16/22 17:22 Tamsulosin HCl (Tamsulosin Hcl 0.4 Mg Cap) 0.4 mg PO HS [facility] Stop: 01/16/22 20:59 Last Admin: 01/06/22 21:13 Dose: 0.4 mg
[2022-01-07] MEDS: ATORVASTATIN 40 MG TAB PO SCH (21:07)
[2022-01-07] MEDS: TAMSULOSIN HCL 0.4 MG CAP PO SCH (21:08)
[2022-01-08] MEDS: CLOPIDOGREL BISULFATE 75 MG TAB PO SCH (08:28)
[2022-01-08] MEDS: ENOXAPARIN 80 MG/0.8 ML SYR SQ SCH ×2 (08:28→20:38)
[2022-01-08] MEDS: FERROUS SULFATE 325 MG TAB PO SCH (08:28)
[2022-01-08] MEDS: carvediloL 12.5 MG TAB PO SCH ×2 (08:28→20:38)
[2022-01-08] MEDS: MAGNESIUM OXIDE 400 MG TAB PO SCH ×3 (08:30→20:40)
[2022-01-08] MEDS: lisinopril 5 MG TAB PO SCH (08:30)
[2022-01-08] MEDS: LANTUS PER UNIT CHARGE SQ SCH ×2 (08:46→20:39)
[2022-01-08] MEDS: INSULIN ASPART PER UNIT SC SCH ×4 (08:46→21:10)
[2022-01-08] MEDS: BACLOFEN 10 MG TAB PO SCH (09:09)
--- NOTE | 2022-01-08 17:24 | Hospitalist Progress Note ---
Date of Service January 08, 2022 Assessment & Plan (1) Syncopal episodes: Plan: Presented to the ED after sending from Oncology clinic for syncope and Low BP Syncope Possible related to low BP and dehydration and was complicated by low hemoglobin received IV fluid with BP improved Amlodipine discontinued No more syncope since admission and the patient has been feeling a lot better Remains stable and awaiting placement (2) Anemia: Plan: Iron deficiency anemia Hgb dropped to 6.9 (12/22) Iron level 15 Received 1 unit PRBC's No sign of active bleeding FOBT negative Case discussed with hematology dr. Huntley that recommended GI eval since it will be easy for GI to see the patient while in the hospital in case if GI want to do any procedure that we can transition him on Heparin drip GI consulted for poss. endoscopy S/P EGD on 12/23/21 showed: The examined esophagus was normal. The entire examined stomach was normal. The examined duodenum was normal. Impression: - Normal esophagus. - Normal stomach. - Normal examined duodenum. - No specimens collected. if pt can't be on AC, may need vascular surgery due to recent DVT in 10/25 to evaluate for IVC filter Discussed w/ Dr. Huntley, no need for IVC filter at this time Repeat hemoglobin following blood transfusion is 9.5 Source of blood loss unknown at this time, patient requiring therapeutic Lovenox twice daily for recent DVT. Plavix now. Aspirin remains on hold GI was notified and no indication for colonoscopy since FOBT was negative, no active bleeding and hgb improves We will monitor CBC-hemoglobin went up to more than 10 (3) History of CVA (cerebrovascular accident): Plan: History of CVA (cerebrovascular accident): Has dense right hemiplegia Has been moving left side almost normal Getting physical therapy and getting stronger as per the patient and the He has to continue with physical therapy Has been getting physical therapy and awaiting placement for rehab (4) CAD (coronary artery disease): Plan: CAD Paroxysmal atrial fibrillation: rate controlled with Carvedilol Continue anticoagulant with Lovenox ( monitor h/h closely) on 12/29 he had 9 beats of V. 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 tele monitor showed no arrhythmia Cardiology consulted - recommended if BP starts to increase while off the amlodipine to increase the Carvedilol or consider to increase Lisinopril Continue monitor closely (6) Hypomagnesemia: Plan: Supplemented and normalized Magnesium level is 1.6-oral supplement increased to 3 times daily (7) HTN (hypertension): Plan: Reasonably controlled with medicine HTN (hypertension): BP was low at the Oncology office Received gentle IVF Continue to hold Amlodipine, will d/c on discharge Continue Lisinopril 5mg BP stable (8) Type 2 diabetes mellitus: Plan: Type 2 diabetes mellitus: Hba1c back in August was 6.7 Continue Lantus and novolog sliding scale Continue monitor BS (9) DVT (deep venous thrombosis): Plan: HX of DVT Right LE DVT on 10/22/21 while on coumadin with therapeutic INR He had a stroke while on Eliquis Anticoagulant was changed to Lovenox 80mg BID , further monitoring per anticoagulation clinic Outpatient documentation with hematology recommended to continue Lovenox [facility] Decubitus Ulcer Pressure-induced deep tissue injury of right buttock & unstageable pressure ulcer to coccyx both POA continue daily wound care Wound care on board DVT ppx: lovenox BID CODE: Full code Disposition PT/OT recommended inpatient rehab Waiting for placement Discussed with the in detail and answered all of her questions Admission and Anticipated Discharge Date Admission Date: December 19, 2021 Subjective 01/06/2022 The patient was seen and examined in medical floor in presence of the He has been stable and has been getting physical therapy Denies any chest pain, palpitation or shortness of breath, no abdominal pain nausea no vomiting and no numbness and or tingling in the extremities 01/07/2022 The patient was seen and examined in medical floor in presence of the He has been stable and awaiting placement 01/08/2022 The patient was seen and examined in medical floor in presence of the He has had some nausea this morning but no vomiting He wants to go home, he wants to be discharged Review of Systems Review of Systems: All systems reviewed and are unremarkable except as noted below Physical Exam Physical Exam: Lying in bed comfortably Constitutional: well developed, well nourished, + ill appearing and average body habitus Eyes: PERRL, conjunctivae normal, anicteric sclerae ENMT: external ear and nose normal, oropharynx normal Neck: trachea midline, no thyromegaly Respiratory: no respiratory distress Auscultation: lungs clear to auscultation bilaterally Cardiovascular: Rate/Rhythm: regular rate and regular rhythm; not tachycardic Heart Sounds: normal S1, normal S2 and + murmur (3/6 ESM over precordium) Extremities: + edema (On the right lower extremity) and + varicosities Gastrointestinal (Abdomen): Inspection/Auscultation: normal bowel sounds; abdomen not distended Percussion/Palpation: abdomen soft; abdomen nontender Psychiatric: A+Ox3, euthymic affect Lymphatic: no cervical or axillary lymphadenopathy Results & Data Results & Data ([facility]) Vital Signs (Past 12 Hours) Vital Signs Temp Pulse Resp BP Pulse Ox O2 Del Method 01/08/22 16:00 37.4 C 80 20 123/66 96 Room Air 01/08/22 07:35 36.9 C 71 20 129/78 97 Room Air
[2022-01-08] MEDS: ATORVASTATIN 40 MG TAB PO SCH (20:39)
[2022-01-08] MEDS: TAMSULOSIN HCL 0.4 MG CAP PO SCH (20:39)
[2022-01-09] MEDS: carvediloL 12.5 MG TAB PO SCH ×2 (08:13→21:34)
[2022-01-09] MEDS: MAGNESIUM OXIDE 400 MG TAB PO SCH ×3 (08:13→21:35)
[2022-01-09] MEDS: CLOPIDOGREL BISULFATE 75 MG TAB PO SCH (08:14)
[2022-01-09] MEDS: FERROUS SULFATE 325 MG TAB PO SCH (08:14)
[2022-01-09] MEDS: lisinopril 5 MG TAB PO SCH (08:15)
[2022-01-09] MEDS: BACLOFEN 10 MG TAB PO SCH (08:19)
[2022-01-09] MEDS: ENOXAPARIN 80 MG/0.8 ML SYR SQ SCH ×2 (08:20→21:35)
[2022-01-09] MEDS: INSULIN ASPART PER UNIT SC SCH ×4 (09:05→21:36)
[2022-01-09] MEDS: LANTUS PER UNIT CHARGE SQ SCH ×2 (09:06→21:36)
--- NOTE | 2022-01-09 15:15 | Hospitalist Progress Note ---
Date of Service January 09, 2022 Assessment & Plan (1) Syncopal episodes: Plan: Presented to the ED after sending from Oncology clinic for syncope and Low BP Syncope Possible related to low BP and dehydration and was complicated by low hemoglobin received IV fluid with BP improved Amlodipine discontinued No more syncope since admission and the patient has been feeling a lot better Remains stable and awaiting placement No further issues (2) Anemia: Plan: Iron deficiency anemia Hgb dropped to 6.9 (12/22) Iron level 15 Received 1 unit PRBC's No sign of active bleeding FOBT negative Case discussed with hematology dr. Huntley that recommended GI eval since it will be easy for GI to see the patient while in the hospital in case if GI want to do any procedure that we can transition him on Heparin drip GI consulted for poss. endoscopy S/P EGD on 12/23/21 showed: The examined esophagus was normal. The entire examined stomach was normal. The examined duodenum was normal. Impression: - Normal esophagus. - Normal stomach. - Normal examined duodenum. - No specimens collected. if pt can't be on AC, may need vascular surgery due to recent DVT in 10/25 to evaluate for IVC filter Discussed w/ Dr. Huntley, no need for IVC filter at this time Repeat hemoglobin following blood transfusion is 9.5 Source of blood loss unknown at this time, patient requiring therapeutic Lovenox twice daily for recent DVT. Plavix now. Aspirin remains on hold GI was notified and no indication for colonoscopy since FOBT was negative, no active bleeding and hgb improves We will monitor CBC-hemoglobin went up to more than 10 (3) History of CVA (cerebrovascular accident): Plan: History of CVA (cerebrovascular accident): Has dense right hemiplegia Has been moving left side almost normal Getting physical therapy and getting stronger as per the patient and the He has to continue with physical therapy Has been getting physical therapy and awaiting placement for rehab (4) CAD (coronary artery disease): Plan: CAD Paroxysmal atrial fibrillation: rate controlled with Carvedilol Continue anticoagulant with Lovenox ( monitor h/h closely) on 12/29 he had 9 beats of V. 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 tele monitor showed no arrhythmia Cardiology consulted - recommended if BP starts to increase while off the amlodipine to increase the Carvedilol or consider to increase Lisinopril Continue monitor closely No acute cardiac symptoms (6) Hypomagnesemia: Plan: Supplemented and normalized Magnesium level is 1.6-oral supplement increased to 3 times daily (7) HTN (hypertension): Plan: Reasonably controlled with medicine HTN (hypertension): BP was low at the Oncology office Received gentle IVF Continue to hold Amlodipine, will d/c on discharge Continue Lisinopril 5mg BP stable (8) Type 2 diabetes mellitus: Plan: Type 2 diabetes mellitus: Hba1c back in August was 6.7 Continue Lantus and novolog sliding scale Continue monitor BS (9) DVT (deep venous thrombosis): Plan: HX of DVT Right LE DVT on 10/22/21 while on coumadin with therapeutic INR He had a stroke while on Eliquis Anticoagulant was changed to Lovenox 80mg BID , further monitoring per anticoagulation clinic Outpatient documentation with hematology recommended to continue Lovenox long term Decubitus Ulcer Pressure-induced deep tissue injury of right buttock & unstageable pressure ulcer to coccyx both POA continue daily wound care Wound care on board DVT ppx: lovenox BID CODE: Full code Disposition PT/OT recommended inpatient rehab Waiting for placement Discussed with the in detail and answered all of her questions Admission and Anticipated Discharge Date Admission Date: December 19, 2021 Subjective 01/06/2022 The patient was seen and examined in medical floor in presence of the He has been stable and has been getting physical therapy Denies any chest pain, palpitation or shortness of breath, no abdominal pain nausea no vomiting and no numbness and or tingling in the extremities 01/07/2022 The patient was seen and examined in medical floor in presence of the He has been stable and awaiting placement 01/08/2022 The patient was seen and examined in medical floor in presence of the He has had some nausea this morning but no vomiting He wants to go home, he wants to be discharged 01/09/2022 The patient was seen and examined in medical floor in presence of the He remained stable and denies any symptoms Review of Systems Review of Systems: All systems reviewed and are unremarkable except as noted below Physical Exam Physical Exam: Lying in bed comfortably Constitutional: well developed, well nourished, + ill appearing and average body habitus Eyes: PERRL, conjunctivae normal, anicteric sclerae ENMT: external ear and nose normal, oropharynx normal Neck: trachea midline, no thyromegaly Respiratory: no respiratory distress Auscultation: lungs clear to auscultation bilaterally Cardiovascular: Rate/Rhythm: regular rate and regular rhythm; not tachycardic Heart Sounds: normal S1, normal S2 and + murmur (3/6 ESM over precordium) Extremities: + edema (On the right lower extremity) and + varicosities Gastrointestinal (Abdomen): Inspection/Auscultation: normal bowel sounds; abdomen not distended Percussion/Palpation: abdomen soft; abdomen nontender Neurologic: Alert, awake and oriented x3. Has dense right hemiplegia Psychiatric: A+Ox3, euthymic affect Lymphatic: no cervical or axillary lymphadenopathy Results & Data Results & Data ([facility]) Vital Signs (Past 12 Hours) Vital Signs Temp Pulse Resp BP Pulse Ox O2 Del Method 01/09/22 14:52 37.1 C 72 16 120/65 95 Room Air 01/09/22 08:12 66 147/86 H 01/09/22 07:11 Room Air 01/09/22 07:21 37.0 C 65 18 115/57 L 92 Room Air Medications Administered Current Inpatient Medications Acetaminophen (Acetaminophen 325 Mg Tab) 650 mg PO Q4H PRN PRN Reason: Moderate Pain Stop: 01/16/22 17:22 Atorvastatin Calcium (Atorvastatin 40 Mg Tab) 80 mg PO QPM [facility] Stop: 01/16/22 20:59 Last Admin: 01/08/22 20:39 Dose: 80 mg Baclofen (Baclofen 10 Mg Tab) 5 mg PO QAM [facility] Stop: 01/17/22 08:59 Last Admin: 01/09/22 08:19 Dose: 5 mg Carvedilol (Carvedilol 12.5 Mg Tab) 12.5 mg PO BID [facility] Stop: 01/16/22 20:59 Last Admin: 01/09/22 08:13 Dose: 12.5 mg Clopidogrel Bisulfate (Clopidogrel Bisulfate 75 Mg Tab) 75 mg PO QAM [facility] Stop: 01/17/22 08:59 Last Admin: 01/09/22 08:14 Dose: 75 mg Dextrose (Dextrose 50% 50 Ml Syringe) 25 - 50 ml IV UD PRN; Protocol PRN Reason: Hypoglycemia Protocol Stop: 01/16/22 16:16 Enoxaparin Sodium (Enoxaparin 80 Mg/0.8 Ml Syr) 80 mg SQ [facility] Stop: 01/16/22 20:59 Last Admin: 01/09/22 08:20 Dose: 80 mg Ferrous Sulfate (Ferrous Sulfate 325 Mg Tab) 325 mg PO QAM [facility] Stop: 01/19/22 08:59 Last Admin: 01/09/22 08:14 Dose: 325 mg Glucagon (Glucagon For Inj 1 Mg Vial) 1 mg SQ UD PRN; Protocol PRN Reason: Hypoglycemia Protocol Stop: 01/16/22 16:16 Glucose (Glucose 40% Gel 15 Gm Tube) 15 - 30 gm PO UD PRN; Protocol PRN Reason: Hypoglycemia Protocol Stop: 01/16/22 16:16 Glucose (Glucose 10 Tab/Tube) 4 - 8 tab PO UD PRN; Protocol PRN Reason: Hypoglycemia Treatment Stop: 01/16/22 16:16 Insulin Aspart (Insulin Aspart Per Unit) 0 units SC ACHS [facility] Stop: 01/16/22 16:29 Last Admin: 01/09/22 13:04 Dose: 5 units Insulin Glargine (Lantus Per Unit Charge) 14 units SQ QAM [facility] Stop: 01/16/22 08:59 Last Admin: 01/09/22 09:06 Dose: 14 units Insulin Glargine (Lantus Per Unit Charge) 10 units SQ QPM [facility] Stop: 01/16/22 20:59 Last Admin: 01/08/22 20:39 Dose: 10 units Lisinopril (Lisinopril 5 Mg Tab) 5 mg PO DAILY [facility] Stop: 01/17/22 08:59 Last Admin: 01/09/22 08:15 Dose: 5 mg Magnesium Oxide (Magnesium Oxide 400 Mg Tab) 400 mg PO TID [facility] Stop: 02/06/22 08:59 Last Admin: 01/09/22 14:09 Dose: 400 mg Miscellaneous (Carbohydrates For Hypoglycemia ) 15 - 30 gm PO UD PRN PRN Reason: Hypoglycemia Protocol Stop: 01/16/22 16:16 Ondansetron HCl (Ondansetron Inj 2 Mg/Ml 2 Ml Vial) 4 mg IV Q4H PRN PRN Reason: Nausea And Vomiting Stop: 01/16/22 17:22 Last Admin: 01/08/22 09:10 Dose: 4 mg Tamsulosin HCl (Tamsulosin Hcl 0.4 Mg Cap) 0.4 mg PO HS [facility] Stop: 01/16/22 20:59 Last Admin: 01/08/22 20:39 Dose: 0.4 mg
[2022-01-09] MEDS: ATORVASTATIN 40 MG TAB PO SCH (21:34)
[2022-01-09] MEDS: TAMSULOSIN HCL 0.4 MG CAP PO SCH (21:35)
[2022-01-10] MEDS: INSULIN ASPART PER UNIT SC SCH ×4 (10:03→21:23)
[2022-01-10] MEDS: LANTUS PER UNIT CHARGE SQ SCH ×2 (10:03→21:30)
[2022-01-10] MEDS: MAGNESIUM OXIDE 400 MG TAB PO SCH ×3 (10:03→21:21)
[2022-01-10] MEDS: carvediloL 12.5 MG TAB PO SCH ×2 (10:04→21:21)
[2022-01-10] MEDS: CLOPIDOGREL BISULFATE 75 MG TAB PO SCH (10:04)
[2022-01-10] MEDS: lisinopril 5 MG TAB PO SCH (10:04)
[2022-01-10] MEDS: FERROUS SULFATE 325 MG TAB PO SCH (10:04)
[2022-01-10] MEDS: ENOXAPARIN 80 MG/0.8 ML SYR SQ SCH ×2 (10:04→21:22)
[2022-01-10] MEDS: BACLOFEN 10 MG TAB PO SCH (10:06)
--- NOTE | 2022-01-10 15:44 | Hospitalist Progress Note ---
Date of Service January 10, 2022 Assessment & Plan (1) Syncopal episodes: Plan: Presented to the ED after sending from Oncology clinic for syncope and Low BP Syncope Possible related to low BP and dehydration and was complicated by low hemoglobin received IV fluid with BP improved Amlodipine discontinued No more syncope since admission and the patient has been feeling a lot better Remains stable and awaiting placement No further issues (2) Anemia: Plan: Iron deficiency anemia Hgb dropped to 6.9 (12/22) Iron level 15 Received 1 unit PRBC's No sign of active bleeding FOBT negative Case discussed with hematology dr. Huntley that recommended GI eval since it will be easy for GI to see the patient while in the hospital in case if GI want to do any procedure that we can transition him on Heparin drip GI consulted for poss. endoscopy S/P EGD on 12/23/21 showed: The examined esophagus was normal. The entire examined stomach was normal. The examined duodenum was normal. Impression: - Normal esophagus. - Normal stomach. - Normal examined duodenum. - No specimens collected. if pt can't be on AC, may need vascular surgery due to recent DVT in 10/25 to evaluate for IVC filter Discussed w/ Dr. Huntley, no need for IVC filter at this time Repeat hemoglobin following blood transfusion is 9.5 Source of blood loss unknown at this time, patient requiring therapeutic Lovenox twice daily for recent DVT. Plavix now. Aspirin remains on hold GI was notified and no indication for colonoscopy since FOBT was negative, no active bleeding and hgb improves We will monitor CBC-hemoglobin went up to more than 10 We will recheck CBC and PRP (3) History of CVA (cerebrovascular accident): Plan: History of CVA (cerebrovascular accident): Has dense right hemiplegia Has been moving left side almost normal Getting physical therapy and getting stronger as per the patient and the He has to continue with physical therapy Has been getting physical therapy and awaiting placement for rehab The wants him to be in [facility] if possible (4) CAD (coronary artery disease): Plan: CAD Paroxysmal atrial fibrillation: rate controlled with Carvedilol Continue anticoagulant with Lovenox ( monitor h/h closely) on 12/29 he had 9 beats of V. 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 tele monitor showed no arrhythmia Cardiology consulted - recommended if BP starts to increase while off the amlodipine to increase the Carvedilol or consider to increase Lisinopril Continue monitor closely No acute cardiac symptoms (6) Hypomagnesemia: Plan: Supplemented and normalized Magnesium level is 1.6-oral supplement increased to 3 times daily (7) HTN (hypertension): Plan: Reasonably controlled with medicine HTN (hypertension): BP was low at the Oncology office Received gentle IVF Continue to hold Amlodipine, will d/c on discharge Continue Lisinopril 5mg BP stable (8) Type 2 diabetes mellitus: Plan: Type 2 diabetes mellitus: Hba1c back in August was 6.7 Continue Lantus and novolog sliding scale Continue monitor BS (9) DVT (deep venous thrombosis): Plan: HX of DVT Right LE DVT on 10/22/21 while on coumadin with therapeutic INR He had a stroke while on Eliquis Anticoagulant was changed to Lovenox 80mg BID , further monitoring per anticoagulation clinic Outpatient documentation with hematology recommended to continue Lovenox residential Decubitus Ulcer Pressure-induced deep tissue injury of right buttock & unstageable pressure ulcer to coccyx both POA continue daily wound care Wound care on board DVT ppx: lovenox BID CODE: Full code Disposition PT/OT recommended inpatient rehab Waiting for placement Discussed with the in detail and answered all of her questions Admission and Anticipated Discharge Date Admission Date: December 19, 2021 Subjective 01/06/2022 The patient was seen and examined in medical floor in presence of the He has been stable and has been getting physical therapy Denies any chest pain, palpitation or shortness of breath, no abdominal pain nausea no vomiting and no numbness and or tingling in the extremities 01/07/2022 The patient was seen and examined in medical floor in presence of the He has been stable and awaiting placement 01/08/2022 The patient was seen and examined in medical floor in presence of the He has had some nausea this morning but no vomiting He wants to go home, he wants to be discharged 01/09/2022 The patient was seen and examined in medical floor in presence of the He remained stable and denies any symptoms 01/10/2022 The patient was seen and examined in medical floor in presence of the He looks much brighter today and denies any significant symptoms Review of Systems Review of Systems: All systems reviewed and are unremarkable except as noted below Physical Exam Physical Exam: Lying in bed comfortably Constitutional: well developed, well nourished, + ill appearing and average body habitus Eyes: PERRL, conjunctivae normal, anicteric sclerae ENMT: external ear and nose normal, oropharynx normal Neck: trachea midline, no thyromegaly Respiratory: no respiratory distress Auscultation: lungs clear to auscultation bilaterally Cardiovascular: Rate/Rhythm: regular rate and regular rhythm; not tachycardic Heart Sounds: normal S1, normal S2 and + murmur (3/6 ESM over precordium) Extremities: + edema (On the right lower extremity) and + varicosities Gastrointestinal (Abdomen): Inspection/Auscultation: normal bowel sounds; abdomen not distended Percussion/Palpation: abdomen soft; abdomen nontender Musculoskeletal: No acute arthritis involving any joints Neurologic: awake; + does not move all extremities (Has dense left hemiplegia) and not confused Psychiatric: A+Ox3, euthymic affect Lymphatic: no cervical or axillary lymphadenopathy Results & Data Results & Data ([facility]) Vital Signs (Past 12 Hours) Vital Signs Temp Pulse Resp BP Pulse Ox O2 Del Method 01/10/22 15:14 36.5 C 78 16 122/69 95 01/10/22 14:30 Room Air 01/10/22 07:48 36.5 C 67 16 167/78 H 96 Medications Administered Current Inpatient Medications Acetaminophen (Acetaminophen 325 Mg Tab) 650 mg PO Q4H PRN PRN Reason: Moderate Pain Stop: 01/16/22 17:22 Atorvastatin Calcium (Atorvastatin 40 Mg Tab) 80 mg PO QPM [facility] Stop: 01/16/22 20:59 Last Admin: 01/09/22 21:34 Dose: 80 mg Baclofen (Baclofen 10 Mg Tab) 5 mg PO QAM [facility] Stop: 01/17/22 08:59 Last Admin: 01/10/22 10:06 Dose: 5 mg Carvedilol (Carvedilol 12.5 Mg Tab) 12.5 mg PO BID [facility] Stop: 01/16/22 20:59 Last Admin: 01/10/22 10:04 Dose: 12.5 mg Clopidogrel Bisulfate (Clopidogrel Bisulfate 75 Mg Tab) 75 mg PO QAM [facility] Stop: 01/17/22 08:59 Last Admin: 01/10/22 10:04 Dose: 75 mg Dextrose (Dextrose 50% 50 Ml Syringe) 25 - 50 ml IV UD PRN; Protocol PRN Reason: Hypoglycemia Protocol Stop: 01/16/22 16:16 Enoxaparin Sodium (Enoxaparin 80 Mg/0.8 Ml Syr) 80 mg SQ [facility] Stop: 01/16/22 20:59 Last Admin: 01/10/22 10:04 Dose: 80 mg Ferrous Sulfate (Ferrous Sulfate 325 Mg Tab) 325 mg PO QAM [facility] Stop: 01/19/22 08:59 Last Admin: 01/10/22 10:04 Dose: 325 mg Glucagon (Glucagon For Inj 1 Mg Vial) 1 mg SQ UD PRN; Protocol PRN Reason: Hypoglycemia Protocol Stop: 01/16/22 16:16 Glucose (Glucose 40% Gel 15 Gm Tube) 15 - 30 gm PO UD PRN; Protocol PRN Reason: Hypoglycemia Protocol Stop: 01/16/22 16:16 Glucose (Glucose 10 Tab/Tube) 4 - 8 tab PO UD PRN; Protocol PRN Reason: Hypoglycemia Treatment Stop: 01/16/22 16:16 Insulin Aspart (Insulin Aspart Per Unit) 0 units SC ACHS [facility] Stop: 01/16/22 16:29 Last Admin: 01/10/22 12:54 Dose: 7 units Insulin Glargine (Lantus Per Unit Charge) 14 units SQ QAM [facility] Stop: 01/16/22 08:59 Last Admin: 01/10/22 10:03 Dose: 14 units Insulin Glargine (Lantus Per Unit Charge) 10 units SQ QPM [facility] Stop: 01/16/22 20:59 Last Admin: 01/09/22 21:36 Dose: 10 units Lisinopril (Lisinopril 5 Mg Tab) 5 mg PO DAILY [facility] Stop: 01/17/22 08:59 Last Admin: 01/10/22 10:04 Dose: 5 mg Magnesium Oxide (Magnesium Oxide 400 Mg Tab) 400 mg PO TID [facility] Stop: 02/06/22 08:59 Last Admin: 01/10/22 12:56 Dose: 400 mg Miscellaneous (Carbohydrates For Hypoglycemia ) 15 - 30 gm PO UD PRN PRN Reason: Hypoglycemia Protocol Stop: 01/16/22 16:16 Ondansetron HCl (Ondansetron Inj 2 Mg/Ml 2 Ml Vial) 4 mg IV Q4H PRN PRN Reason: Nausea And Vomiting Stop: 01/16/22 17:22 Last Admin: 01/08/22 09:10 Dose: 4 mg Tamsulosin HCl (Tamsulosin Hcl 0.4 Mg Cap) 0.4 mg PO HS [facility] Stop: 01/16/22 20:59 Last Admin: 01/09/22 21:35 Dose: 0.4 mg
[2022-01-10] MEDS: TAMSULOSIN HCL 0.4 MG CAP PO SCH (21:21)
[2022-01-10] MEDS: ATORVASTATIN 40 MG TAB PO SCH (21:22)
[2022-01-11 06:59] LABS: Basophils # (auto) 0.04 K/uL (0-0.2); Basophils % (auto) 0.8 %; Eosinophils # (auto) 0.16 K/uL (0-0.50); Eosinophils % (auto) 3.3 %; Hematocrit (blood only) 37.3 % (40.1-51.0); Hemoglobin 11.3 g/dl (14.0-18.0); Immature Granulocytes # (auto) 0.02 K/uL (0.00-0.02); Immature Granulocytes % (auto) 0.4 %; Lymphocytes # (auto) 1.72 K/uL (1.2-3.4); Lymphocytes % (auto) 35.2 %; Mean Corpuscular Hemoglobin 23.7 pg (25.0-34.0); Mean Corpuscular Hgb Conc 30.3 g/dL (32.0-36.0); Mean Corpuscular Volume 78.4 fL (80.0-100.0); Mean Platelet Volume 10.3 fL (9.4-12.4); Monocytes # (auto) 0.54 K/uL (0.24-0.82); Neutrophils # (auto) 2.41 K/uL (1.4-6.5); Neutrophils % (auto) 49.3 %; Platelet Count 261 K/uL (130-400); RDW Coefficient of Variation 19.5 % (11.5-14.5); RDW Standard Deviation 55.8 fL (36.4-46.3); Red Blood Count 4.76 M/uL (4.63-6.08); White Blood Count 4.89 K/ul (4.8-10.8)
[2022-01-11 07:26] LABS: BUN Creatinine Ratio 28.3 (10-20); Calcium 8.7 mg/dl (8.5-10.1); Creatinine Clr Calc Pharmacy 134.2 ml/min; Magnesium 1.8 mg/dl (1.7-2.4); Phosphorus 3.5 mg/dl (2.5-4.9); Potassium 4.2 mmol/L (3.5-5.1)
[2022-01-11] MEDS: ENOXAPARIN 80 MG/0.8 ML SYR SQ SCH ×2 (09:23→20:42)
[2022-01-11] MEDS: BACLOFEN 10 MG TAB PO SCH (09:24)
[2022-01-11] MEDS: lisinopril 5 MG TAB PO SCH (09:24)
[2022-01-11] MEDS: MAGNESIUM OXIDE 400 MG TAB PO SCH ×3 (09:24→20:43)
[2022-01-11] MEDS: carvediloL 12.5 MG TAB PO SCH ×2 (09:25→20:44)
[2022-01-11] MEDS: CLOPIDOGREL BISULFATE 75 MG TAB PO SCH (09:26)
[2022-01-11] MEDS: FERROUS SULFATE 325 MG TAB PO SCH (09:26)
[2022-01-11] MEDS: LANTUS PER UNIT CHARGE SQ SCH ×2 (09:27→20:47)
[2022-01-11] MEDS: INSULIN ASPART PER UNIT SC SCH ×4 (09:31→20:46)
--- NOTE | 2022-01-11 14:33 | Hospitalist Progress Note ---
Date of Service January 11, 2022 Assessment & Plan (1) Syncopal episodes: Plan: Presented to the ED after sending from Oncology clinic for syncope and Low BP Syncope Possible related to low BP and dehydration and was complicated by low hemoglobin received IV fluid with BP improved Amlodipine discontinued No more syncope since admission and the patient has been feeling a lot better Remains stable and awaiting placement (2) Anemia: Plan: Iron deficiency anemia Hgb dropped to 6.9 (12/22) Iron level 15 Received 1 unit PRBC's No sign of active bleeding FOBT negative Case discussed with hematology dr. Huntley that recommended GI eval since it will be easy for GI to see the patient while in the hospital in case if GI want to do any procedure that we can transition him on Heparin drip GI consulted for poss. endoscopy S/P EGD on 12/23/21 showed: The examined esophagus was normal. The entire examined stomach was normal. The examined duodenum was normal. Impression: - Normal esophagus. - Normal stomach. - Normal examined duodenum. - No specimens collected. if pt can't be on AC, may need vascular surgery due to recent DVT in 10/25 to evaluate for IVC filter Discussed w/ Dr. Huntley, no need for IVC filter at this time Repeat hemoglobin following blood transfusion is 9.5 Source of blood loss unknown at this time, patient requiring therapeutic Lovenox twice daily for recent DVT. Plavix now. Aspirin remains on hold GI was notified and no indication for colonoscopy since FOBT was negative, no active bleeding and hgb improves We will monitor CBC-hemoglobin went up to more than 10 Globin went up to 11.3 as of 01/11/2022 and the kidney function and electrolytes remain unremarkable (3) History of CVA (cerebrovascular accident): Plan: History of CVA (cerebrovascular accident): Has dense right hemiplegia Has been moving left side almost normal Getting physical therapy and getting stronger as per the patient and the He has to continue with physical therapy Has been getting physical therapy and awaiting placement for rehab The wants him to be in [facility] if possible (4) CAD (coronary artery disease): Plan: CAD Paroxysmal atrial fibrillation: rate controlled with Carvedilol Continue anticoagulant with Lovenox ( monitor h/h closely) on 12/29 he had 9 beats of V. 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 tele monitor showed no arrhythmia Cardiology consulted - recommended if BP starts to increase while off the amlodipine to increase the Carvedilol or consider to increase Lisinopril Continue monitor closely No acute cardiac symptoms (6) Hypomagnesemia: Plan: Supplemented and normalized Magnesium level is 1.6-oral supplement increased to 3 times daily [facility] level has been normal (7) HTN (hypertension): Plan: Reasonably controlled with medicine HTN (hypertension): BP was low at the Oncology office Received gentle IVF Continue to hold Amlodipine, will d/c on discharge Continue Lisinopril 5mg BP stable (8) Type 2 diabetes mellitus: Plan: Type 2 diabetes mellitus: Hba1c back in August was 6.7 Continue Lantus and novolog sliding scale Continue monitor BS (9) DVT (deep venous thrombosis): Plan: HX of DVT Right LE DVT on 10/22/21 while on coumadin with therapeutic INR He had a stroke while on Eliquis Anticoagulant was changed to Lovenox 80mg BID , further monitoring per antico agulation clinic Outpatient documentation with hematology recommended to continue Lovenox senior living Decubitus Ulcer Pressure-induced deep tissue injury of right buttock & unstageable pressure ulcer to coccyx both POA continue daily wound care Wound care on board DVT ppx: lovenox BID CODE: Full code Disposition PT/OT recommended inpatient rehab Waiting for placement Discussed with the in detail and answered all of her questions Admission and Anticipated Discharge Date Admission Date: December 19, 2021 Subjective 01/06/2022 The patient was seen and examined in medical floor in presence of the He has been stable and has been getting physical therapy Denies any chest pain, palpitation or shortness of breath, no abdominal pain nausea no vomiting and no numbness and or tingling in the extremities 01/07/2022 The patient was seen and examined in medical floor in presence of the He has been stable and awaiting placement 01/08/2022 The patient was seen and examined in medical floor in presence of the He has had some nausea this morning but no vomiting He wants to go home, he wants to be discharged 01/09/2022 The patient was seen and examined in medical floor in presence of the He remained stable and denies any symptoms 01/10/2022 The patient was seen and examined in medical floor in presence of the He looks much brighter today and denies any significant symptoms 01/11/2022 The patient was seen and examined in medical floor He looks brighter today and denies any significant symptoms Nothing happened overnight and he remains stable Review of Systems Review of Systems: All systems reviewed and are unremarkable except as noted below Physical Exam Physical Exam: Lying in bed comfortably Constitutional: well developed, well nourished, + ill appearing and average body habitus Eyes: PERRL, conjunctivae normal, anicteric sclerae ENMT: external ear and nose normal, oropharynx normal Neck: trachea midline, no thyromegaly Respiratory: no respiratory distress Auscultation: lungs clear to auscultation bilaterally Cardiovascular: Rate/Rhythm: regular rate and regular rhythm; not tachycardic Heart Sounds: normal S1, normal S2 and + murmur (3/6 ESM over precordium) Extremities: + edema (On the right lower extremity) and + varicosities Gastrointestinal (Abdomen): Inspection/Auscultation: normal bowel sounds; abdomen not distended Percussion/Palpation: abdomen soft; abdomen nontender Neurologic: awake; + does not move all extremities (Has dense left hemiplegia) and not confused Psychiatric: A+Ox3, euthymic affect Lymphatic: no cervical or axillary lymphadenopathy Results & Data Results & Data ([facility]) Vital Signs (Past 12 Hours) Vital Signs Temp Pulse Resp BP Pulse Ox 01/11/22 07:55 36.6 C 71 16 118/73 97 Diagnostic Findings Short CBC 01/11/22 Range/Units 06:23 WBC 4.89 (4.8-10.8) K/ul Hgb 11.3 L (14.0-18.0) g/dl Hct 37.3 L (40.1-51.0) % Plt Count 261 (130-400) K/uL BMP 01/11/22 06:23 Sodium 135 L Potassium 4.2 Chloride 102 Carbon Dioxide 28 BUN 17 Creatinine 0.60 Glucose 126 H Calcium 8.7 Medications Administered Current Inpatient Medications Acetaminophen (Acetaminophen 325 Mg Tab) 650 mg PO Q4H PRN PRN Reason: Moderate Pain Stop: 01/16/22 17:22 Atorvastatin Calcium (Atorvastatin 40 Mg Tab) 80 mg PO QPM [facility] Stop: 01/16/22 20:59 Last Admin: 01/10/22 21:22 Dose: 80 mg Baclofen (Baclofen 10 Mg Tab) 5 mg PO QAM [facility] Stop: 01/17/22 08:59 Last Admin: 01/11/22 09:24 Dose: 5 mg Carvedilol (Carvedilol 12.5 Mg Tab) 12.5 mg PO BID [facility] Stop: 01/16/22 20:59 Last Admin: 01/11/22 09:25 Dose: 12.5 mg Clopidogrel Bisulfate (Clopidogrel Bisulfate 75 Mg Tab) 75 mg PO QAM [facility] Stop: 01/17/22 08:59 Last Admin: 01/11/22 09:26 Dose: 75 mg Dextrose (Dextrose 50% 50 Ml Syringe) 25 - 50 ml IV UD PRN; Protocol PRN Reason: Hypoglycemia Protocol Stop: 01/16/22 16:16 Enoxaparin Sodium (Enoxaparin 80 Mg/0.8 Ml Syr) 80 mg SQ COUNTS INCLUDE 234 BEDS AT THE [facility] Stop: 01/16/22 20:59 Last Admin: 01/11/22 09:23 Dose: 80 mg Ferrous Sulfate (Ferrous Sulfate 325 Mg Tab) 325 mg PO QAM [facility] Stop: 01/19/22 08:59 Last Admin: 01/11/22 09:26 Dose: 325 mg Glucagon (Glucagon For Inj 1 Mg Vial) 1 mg SQ UD PRN; Protocol PRN Reason: Hypoglycemia Protocol Stop: 01/16/22 16:16 Glucose (Glucose 40% Gel 15 Gm Tube) 15 - 30 gm PO UD PRN; Protocol PRN Reason: Hypoglycemia Protocol Stop: 01/16/22 16:16 Glucose (Glucose 10 Tab/Tube) 4 - 8 tab PO UD PRN; Protocol PRN Reason: Hypoglycemia Treatment Stop: 01/16/22 16:16 Insulin Aspart (Insulin Aspart Per Unit) 0 units SC [facility] Stop: 01/16/22 16:29 Last Admin: 01/11/22 13:20 Dose: 6 units Insulin Glargine (Lantus Per Unit Charge) 14 units SQ [facility] Stop: 01/16/22 08:59 Last Admin: 01/11/22 09:27 Dose: 14 units Insulin Glargine (Lantus Per Unit Charge) 10 units SQ QPM [facility] Stop: 01/16/22 20:59 Last Admin: 01/10/22 21:30 Dose: 10 units Lisinopril (Lisinopril 5 Mg Tab) 5 mg PO DAILY [facility] Stop: 01/17/22 08:59 Last Admin: 01/11/22 09:24 Dose: 5 mg Magnesium Oxide (Magnesium Oxide 400 Mg Tab) 400 mg PO TID [facility] Stop: 02/06/22 08:59 Last Admin: 01/11/22 13:21 Dose: 400 mg Miscellaneous (Carbohydrates For Hypoglycemia ) 15 - 30 gm PO UD PRN PRN Reason: Hypoglycemia Protocol Stop: 01/16/22 16:16 Ondansetron HCl (Ondansetron Inj 2 Mg/Ml 2 Ml Vial) 4 mg IV Q4H PRN PRN Reason: Nausea And Vomiting Stop: 01/16/22 17:22 Last Admin: 01/08/22 09:10 Dose: 4 mg Tamsulosin HCl (Tamsulosin Hcl 0.4 Mg Cap) 0.4 mg PO HS [facility] Stop: 01/16/22 20:59 Last Admin: 01/10/22 21:21 Dose: 0.4 mg
[2022-01-11] MEDS: ATORVASTATIN 40 MG TAB PO SCH (20:43)
[2022-01-11] MEDS: TAMSULOSIN HCL 0.4 MG CAP PO SCH (20:43)
[2022-01-12] MEDS: MAGNESIUM OXIDE 400 MG TAB PO SCH ×3 (10:17→20:35)
[2022-01-12] MEDS: FERROUS SULFATE 325 MG TAB PO SCH (10:17)
[2022-01-12] MEDS: CLOPIDOGREL BISULFATE 75 MG TAB PO SCH (10:17)
[2022-01-12] MEDS: carvediloL 12.5 MG TAB PO SCH ×2 (10:17→20:35)
[2022-01-12] MEDS: lisinopril 5 MG TAB PO SCH (10:17)
[2022-01-12] MEDS: ENOXAPARIN 80 MG/0.8 ML SYR SQ SCH ×2 (10:18→20:35)
[2022-01-12] MEDS: LANTUS PER UNIT CHARGE SQ SCH ×2 (10:18→20:46)
[2022-01-12] MEDS: INSULIN ASPART PER UNIT SC SCH ×4 (10:20→20:47)
[2022-01-12] MEDS: BACLOFEN 10 MG TAB PO SCH (10:26)
--- NOTE | 2022-01-12 17:16 | Hospitalist Progress Note ---
Date of Service January 12, 2022 Assessment & Plan (1) Syncopal episodes: Plan: Presented to the ED after sending from Oncology clinic for syncope and Low BP Syncope Possible related to low BP and dehydration and was complicated by low hemoglobin received IV fluid with BP improved Amlodipine discontinued No more syncope since admission and the patient has been feeling a lot better Remains stable and awaiting placement (2) Anemia: Plan: Iron deficiency anemia Hgb dropped to 6.9 (12/22) Iron level 15 Received 1 unit PRBC's No sign of active bleeding FOBT negative Case discussed with hematology dr. Huntley that recommended GI eval since it will be easy for GI to see the patient while in the hospital in case if GI want to do any procedure that we can transition him on Heparin drip GI consulted for poss. endoscopy S/P EGD on 12/23/21 showed: The examined esophagus was normal. The entire examined stomach was normal. The examined duodenum was normal. Impression: - Normal esophagus. - Normal stomach. - Normal examined duodenum. - No specimens collected. if pt can't be on AC, may need vascular surgery due to recent DVT in 10/25 to evaluate for IVC filter Discussed w/ Dr. Huntley, no need for IVC filter at this time Repeat hemoglobin following blood transfusion is 9.5 Source of blood loss unknown at this time, patient requiring therapeutic Lovenox twice daily for recent DVT. Plavix now. Aspirin remains on hold GI was notified and no indication for colonoscopy since FOBT was negative, no active bleeding and hgb improves We will monitor CBC-hemoglobin went up to more than 10 Globin went up to 11.3 as of 01/11/2022 and the kidney function and electrolytes remain unremarkable (3) History of CVA (cerebrovascular accident): Plan: History of CVA (cerebrovascular accident): Has dense right hemiplegia Has been moving left side almost normal Getting physical therapy and getting stronger as per the patient and the He has to continue with physical therapy Has been getting physical therapy and awaiting placement for rehab The wants him to be in [facility] if possible CVA status remains unremarkable with complete paralysis of right side and ongoing physical therapy to improve left-sided weakness (4) CAD (coronary artery disease): Plan: CAD Paroxysmal atrial fibrillation: rate controlled with Carvedilol Continue anticoagulant with Lovenox ( monitor h/h closely) on 12/29 he had 9 beats of V. 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 tele monitor showed no arrhythmia Cardiology consulted - recommended if BP starts to increase while off the amlodipine to increase the Carvedilol or consider to increase Lisinopril Has significant aortic stenosis without any cardiac symptoms No acute cardiac symptoms (6) Hypomagnesemia: Plan: Supplemented and normalized Magnesium level is 1.6-oral supplement increased to 3 times daily Museum level has been normal (7) HTN (hypertension): Plan: Reasonably controlled with medicine HTN (hypertension): BP was low at the Oncology office Received gentle IVF Continue to hold Amlodipine, will d/c on discharge Continue Lisinopril 5mg BP stable (8) Type 2 diabetes mellitus: Plan: Type 2 diabetes mellitus: Hba1c back in August was 6.7 Continue Lantus and novolog sliding scale Continue monitor BS (9) DVT (deep venous thrombosis): Plan: HX of DVT Right LE DVT on 10/22/21 while on coumadin with therapeutic INR He had a stroke while on Eliquis Anticoagulant was changed to Lovenox 80mg BID , further monitoring per anticoagulation clinic Outpatient documentation with hematology recommended to continue Lovenox nursing home Decubitus Ulcer Pressure-induced deep tissue injury of right buttock & unstageable pressure ulcer to coccyx both POA continue daily wound care Wound care on board DVT ppx: lovenox BID CODE: Full code Disposition PT/OT recommended inpatient rehab Waiting for placement Discussed with the in detail and answered all of her questions Admission and Anticipated Discharge Date Admission Date: December 19, 2021 Subjective 01/06/2022 The patient was seen and examined in medical floor in presence of the He has been stable and has been getting physical therapy Denies any chest pain, palpitation or shortness of breath, no abdominal pain nausea no vomiting and no numbness and or tingling in the extremities 01/07/2022 The patient was seen and examined in medical floor in presence of the He has been stable and awaiting placement 01/08/2022 The patient was seen and examined in medical floor in presence of the He has had some nausea this morning but no vomiting He wants to go home, he wants to be discharged 01/09/2022 The patient was seen and examined in medical floor in presence of the He remained stable and denies any symptoms 01/10/2022 The patient was seen and examined in medical floor in presence of the He looks much brighter today and denies any significant symptoms 01/11/2022 The patient was seen and examined in medical floor He looks brighter today and denies any significant symptoms Nothing happened overnight and he remains stable 01/12/2022 The patient was seen and examined in medical floor in presence of the He does not have any symptoms or any complaints He has been waiting for rehab placement Review of Systems Review of Systems: All systems reviewed and are unremarkable except as noted below Physical Exam Physical Exam: Lying in bed comfortably Constitutional: well developed, well nourished, + ill appearing and average body habitus Eyes: PERRL, conjunctivae normal, anicteric sclerae ENMT: external ear and nose normal, oropharynx normal Neck: trachea midline, no thyromegaly Respiratory: no respiratory distress Auscultation: lungs clear to auscultation bilaterally Cardiovascular: Rate/Rhythm: regular rate and regular rhythm; not tachycardic Heart Sounds: normal S1, normal S2 and + murmur (3/6 ESM over precordium) Extremities: + edema (On the right lower extremity) and + varicosities Gastrointestinal (Abdomen): Inspection/Auscultation: normal bowel sounds; abdomen not distended Percussion/Palpation: abdomen soft; abdomen nontender Neurologic: awake; + does not move all extremities (Has dense left hemiplegia) and not confused Psychiatric: A+Ox3, euthymic affect Lymphatic: no cervical or axillary lymphadenopathy Results & Data Results & Data ([facility]) Vital Signs (Past 12 Hours) Vital Signs Temp Pulse Pulse Resp BP Pulse Ox O2 Del Method 01/12/22 15:19 37.2 C 78 18 129/72 96 Room Air 01/12/22 07:30 Room Air 01/12/22 07:14 36.7 C 67 12 152/74 H 97 Room Air Medications Administered Current Inpatient Medications Acetaminophen (Acetaminophen 325 Mg Tab) 650 mg PO Q4H PRN PRN Reason: Moderate Pain Stop: 01/16/22 17:22 Atorvastatin Calcium (Atorvastatin 40 Mg Tab) 80 mg PO QPM [facility] Stop: 01/16/22 20:59 Last Admin: 01/11/22 20:43 Dose: 80 mg Baclofen (Baclofen 10 Mg Tab) 5 mg PO QAM [facility] Stop: 01/17/22 08:59 Last Admin: 01/12/22 10:26 Dose: 5 mg Carvedilol (Carvedilol 12.5 Mg Tab) 12.5 mg PO BID [facility] Stop: 01/16/22 20:59 Last Admin: 01/12/22 10:17 Dose: 12.5 mg Clopidogrel Bisulfate (Clopidog[facility]ulf[facility] 75 Mg Tab) [facility] Stop: 01/17/22 08:59 Last Admin: 01/12/22 10:17 Dose: 75 mg Dextrose (Dextrose 50% 50 Ml Syringe) 25 - 50 ml IV UD PRN; Protocol PRN Reason: Hypoglycemia Protocol Stop: 01/16/22 16:16 Enoxaparin Sodium (Enoxaparin 80 Mg/0.8 Ml Syr) 80 mg SQ [facility] Stop: 01/16/22 20:59 Last Admin: 01/12/22 10:18 Dose: 80 mg Ferrous Sulfate (Ferrous Sulfate 325 Mg Tab) 325 mg PO [facility] Stop: 01/19/22 08:59 Last Admin: 01/12/22 10:17 Dose: 325 mg Glucagon (Glucagon For Inj 1 Mg Vial) 1 mg SQ UD PRN; Protocol PRN Reason: Hypoglycemia Protocol Stop: 01/16/22 16:16 Glucose (Glucose 40% Gel 15 Gm Tube) 15 - 30 gm PO UD PRN; Protocol PRN Reason: Hypoglycemia Protocol Stop: 01/16/22 16:16 Glucose (Glucose 10 Tab/Tube) 4 - 8 tab PO UD PRN; Protocol PRN Reason: Hypoglycemia Treatment Stop: 01/16/22 16:16 Insulin Aspart (Insulin Aspart Per Unit) 0 units SC [facility] Stop: 01/16/22 16:29 Last Admin: 01/12/22 13:10 Dose: 8 units Insulin Glargine (Lantus Per Unit Charge) [facility] Stop: 01/16/22 08:59 Last Admin: 01/12/22 10:18 Dose: 14 units Insulin Glargine (Lantus Per Unit Charge) 10 units SQ QPM [facility] Stop: 01/16/22 20:59 Last Admin: 01/11/22 20:47 Dose: 10 units Lisinopril (Lisinopril 5 Mg Tab) 5 mg PO DAILY [facility] Stop: 01/17/22 08:59 Last Admin: 01/12/22 10:17 Dose: 5 mg Magnesium Oxide (Magnesium Oxide 400 Mg Tab) 400 mg PO TID [facility] Stop: 02/06/22 08:59 Last Admin: 01/12/22 13:09 Dose: 400 mg Miscellaneous (Carbohydrates For Hypoglycemia ) 15 - 30 gm PO UD PRN PRN Reason: Hypoglycemia Protocol Stop: 01/16/22 16:16 Ondansetron HCl (Ondansetron Inj 2 Mg/Ml 2 Ml Vial) 4 mg IV Q4H PRN PRN Reason: Nausea And Vomiting Stop: 01/16/22 17:22 Last Admin: 01/08/22 09:10 Dose: 4 mg Tamsulosin HCl (Tamsulosin Hcl 0.4 Mg Cap) 0.4 mg PO HS [facility] Stop: 01/16/22 20:59 Last Admin: 01/11/22 20:43 Dose: 0.4 mg
[2022-01-12] MEDS: ATORVASTATIN 40 MG TAB PO SCH (20:35)
[2022-01-12] MEDS: TAMSULOSIN HCL 0.4 MG CAP PO SCH (23:29)
[2022-01-13] MEDS: INSULIN ASPART PER UNIT SC SCH ×4 (09:15→21:01)
[2022-01-13] MEDS: LANTUS PER UNIT CHARGE SQ SCH ×2 (09:16→21:00)
[2022-01-13] MEDS: CLOPIDOGREL BISULFATE 75 MG TAB PO SCH (09:18)
[2022-01-13] MEDS: ENOXAPARIN 80 MG/0.8 ML SYR SQ SCH ×2 (09:18→21:00)
[2022-01-13] MEDS: FERROUS SULFATE 325 MG TAB PO SCH (09:18)
[2022-01-13] MEDS: carvediloL 12.5 MG TAB PO SCH ×2 (09:18→21:00)
[2022-01-13] MEDS: MAGNESIUM OXIDE 400 MG TAB PO SCH ×3 (09:18→21:00)
[2022-01-13] MEDS: BACLOFEN 10 MG TAB PO SCH (09:21)
[2022-01-13] MEDS: lisinopril 5 MG TAB PO SCH (11:10)
--- NOTE | 2022-01-13 18:26 | Hospitalist Progress Note ---
Date of Service January 13, 2022 Assessment & Plan (1) Syncopal episodes: Plan: Presented to the ED after sending from Oncology clinic for syncope and Low BP Syncope Possible related to low BP and dehydration and was complicated by low hemoglobin received IV fluid with BP improved Amlodipine discontinued No more syncope since admission and the patient has been feeling a lot better Remains stable and awaiting placement (2) Anemia: Plan: Iron deficiency anemia Hgb dropped to 6.9 (12/22) Iron level 15 Received 1 unit PRBC's No sign of active bleeding FOBT negative Case discussed with hematology dr. Huntley that recommended GI eval since it will be easy for GI to see the patient while in the hospital in case if GI want to do any procedure that we can transition him on Heparin drip GI consulted for poss. endoscopy S/P EGD on 12/23/21 showed: The examined esophagus was normal. The entire examined stomach was normal. The examined duodenum was normal. Impression: - Normal esophagus. - Normal stomach. - Normal examined duodenum. - No specimens collected. if pt can't be on AC, may need vascular surgery due to recent DVT in 10/25 to evaluate for IVC filter Discussed w/ Dr. Huntley, no need for IVC filter at this time Repeat hemoglobin following blood transfusion is 9.5 Source of blood loss unknown at this time, patient requiring therapeutic Lovenox twice daily for recent DVT. Plavix now. Aspirin remains on hold GI was notified and no indication for colonoscopy since FOBT was negative, no active bleeding and hgb improves We will monitor CBC-hemoglobin went up to more than 10 Globin went up to 11.3 as of 01/11/2022 and the kidney function and electrolytes remain unremarkable Hemoglobin remains stable (3) History of CVA (cerebrovascular accident): Plan: History of CVA (cerebrovascular accident): Has dense right hemiplegia Has been moving left side almost normal Getting physical therapy and getting stronger as per the patient and the He has to continue with physical therapy Has been getting physical therapy and awaiting placement for rehab The wants him to be in [facility] if possible CVA status remains unremarkable with complete paralysis of right side and ongoing physical therapy to improve left-sided weakness We will continue physical therapy as an outpatient The case reviewer is trying to find a home health agency which can provide at least 3 times of physical therapy at home (4) CAD (coronary artery disease): Plan: CAD Paroxysmal atrial fibrillation: rate controlled with Carvedilol Continue anticoagulant with Lovenox ( monitor h/h closely) on 12/29 he had 9 beats of V. 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 tele monitor showed no arrhythmia Cardiology consulted - recommended if BP starts to increase while off the amlodipine to increase the Carvedilol or consider to increase Lisinopril Has significant aortic stenosis without any cardiac symptoms No acute cardiac symptoms (6) Hypomagnesemia: Plan: Supplemented and normalized Magnesium level is 1.6-oral supplement increased to 3 times daily [facility] level has been normal (7) HTN (hypertension): Plan: Reasonably controlled with medicine HTN (hypertension): BP was low at the Oncology office Received gentle IVF Continue to hold Amlodipine, will d/c on discharge Continue Lisinopril 5mg BP stable (8) Type 2 diabetes mellitus: Plan: Type 2 diabetes mellitus: Hba1c back in August was 6.7 Continue Lantus and novolog sliding scale Continue monitor BS (9) DVT (deep venous thrombosis): Plan: HX of DVT Right LE DVT on 10/22/21 while on coumadin with therapeutic INR He had a stroke while on Eliquis Anticoagulant was changed to Lovenox 80mg BID , further monitoring per anticoagulation clinic Outpatient documentation with hematology recommended to continue Lovenox shelter Decubitus Ulcer Pressure-induced deep tissue injury of right buttock & unstageable pressure ulcer to coccyx both POA continue daily wound care Wound care on board DVT ppx: lovenox BID CODE: Full code Disposition PT/OT recommended inpatient rehab Waiting for placement Discussed with the in detail and answered all of her questions-discussing with the daily Admission and Anticipated Discharge Date Admission Date: December 19, 2021 Subjective 01/06/2022 The patient was seen and examined in medical floor in presence of the He has been stable and has been getting physical therapy Denies any chest pain, palpitation or shortness of breath, no abdominal pain nausea no vomiting and no numbness and or tingling in the extremities 01/07/2022 The patient was seen and examined in medical floor in presence of the He has been stable and awaiting placement 01/08/2022 The patient was seen and examined in medical floor in presence of the He has had some nausea this morning but no vomiting He wants to go home, he wants to be discharged 01/09/2022 The patient was seen and examined in medical floor in presence of the He remained stable and denies any symptoms 01/10/2022 The patient was seen and examined in medical floor in presence of the He looks much brighter today and denies any significant symptoms 01/11/2022 The patient was seen and examined in medical floor He looks brighter today and denies any significant symptoms Nothing happened overnight and he remains stable 01/12/2022 The patient was seen and examined in medical floor in presence of the He does not have any symptoms or any complaints He has been waiting for rehab placement 01/13/2022 The patient was seen and examined in medical floor in presence of the He remains stable and is ready to be discharged Awaiting acceptance to facility Review of Systems Review of Systems: All systems reviewed and are unremarkable except as noted below Physical Exam Physical Exam: Lying in bed comfortably Constitutional: well developed, well nourished, + ill appearing and average body habitus Eyes: PERRL, conjunctivae normal, anicteric sclerae ENMT: external ear and nose normal, oropharynx normal Neck: trachea midline, no thyromegaly Respiratory: no respiratory distress Auscultation: lungs clear to auscultation bilaterally Cardiovascular: Rate/Rhythm: regular rate and regular rhythm; not tachycardic Heart Sounds: normal S1, normal S2 and + murmur (3/6 ESM over precordium) Extremities: + edema (On the right lower extremity) and + varicosities Gastrointestinal (Abdomen): Inspection/Auscultation: normal bowel sounds; abdomen not distended Percussion/Palpation: abdomen soft; abdomen nontender Musculoskeletal: No acute arthritis in any of the joints Neurologic: awake; + does not move all extremities (Has dense left hemiplegia) and not confused Psychiatric: A+Ox3, euthymic affect Lymphatic: no cervical or axillary lymphadenopathy Results & Data Results & Data ([facility]) Vital Signs (Past 12 Hours) Vital Signs Temp Pulse Pulse Resp BP Pulse Ox O2 Del Method 01/13/22 15:27 36.6 C 16 L 18 121/72 96 Room Air 01/13/22 09:00 Room Air 01/13/22 06:30 36.6 C 75 18 125/76 97 Room Air Medications Administered Current Inpatient Medications Acetaminophen (Acetaminophen 325 Mg Tab) 650 mg PO Q4H PRN PRN Reason: Moderate Pain Stop: 01/16/22 17:22 Atorvastatin Calcium (Atorvastatin 40 Mg Tab) 80 mg PO QPM [facility] Stop: 01/16/22 20:59 Last Admin: 01/12/22 20:35 Dose: 80 mg Baclofen (Baclofen 10 Mg Tab) 5 mg PO QAM [facility] Stop: 01/17/22 08:59 Last Admin: 01/13/22 09:21 Dose: 5 mg Carvedilol (Carvedilol 12.5 Mg Tab) 12.5 mg PO BID [facility] Stop: 01/16/22 20:59 Last Admin: 01/13/22 09:18 Dose: 12.5 mg Clopidogrel Bisulfate (Clopidogrel Bisulfate 75 Mg Tab) 75 mg PO QAM [facility] Stop: 01/17/22 08:59 Last Admin: 01/13/22 09:18 Dose: 75 mg Dextrose (Dextrose 50% 50 Ml Syringe) 25 - 50 ml IV UD PRN; Protocol PRN Reason: Hypoglycemia Protocol Stop: 01/16/22 16:16 Enoxaparin Sodium (Enoxaparin 80 Mg/0.8 Ml Syr) 80 mg SQ [facility] Stop: 01/16/22 20:59 Last Admin: 01/13/22 09:18 Dose: 80 mg Ferrous Sulfate (Ferrous Sulfate 325 Mg Tab) 325 mg PO QAM [facility] Stop: 01/19/22 08:59 Last Admin: 01/13/22 09:18 Dose: 325 mg Glucagon (Glucagon For Inj 1 Mg Vial) 1 mg SQ UD PRN; Protocol PRN Reason: Hypoglycemia Protocol Stop: 01/16/22 16:16 Glucose (Glucose 40% Gel 15 Gm Tube) 15 - 30 gm PO UD PRN; Protocol PRN Reason: Hypoglycemia Protocol Stop: 01/16/22 16:16 Glucose (Glucose 10 Tab/Tube) 4 - 8 tab PO UD PRN; Protocol PRN Reason: Hypoglycemia Treatment Stop: 01/16/22 16:16 Insulin Aspart (Insulin Aspart Per Unit) 0 units SC ACHS [facility] Stop: 01/16/22 16:29 Last Admin: 01/13/22 17:57 Dose: 7 units Insulin Glargine (Lantus Per Unit Charge) 14 units SQ QAM [facility] Stop: 01/16/22 08:59 Last Admin: 01/13/22 09:16 Dose: 14 units Insulin Glargine (Lantus Per Unit Charge) 10 units SQ QPM [facility] Stop: 01/16/22 20:59 Last Admin: 01/12/22 20:46 Dose: 10 units Lisinopril (Lisinopril 5 Mg Tab) 5 mg PO DAILY [facility] Stop: 01/17/22 08:59 Last Admin: 01/13/22 11:10 Dose: 5 mg Magnesium Oxide (Magnesium Oxide 400 Mg Tab) 400 mg PO TID [facility] Stop: 02/06/22 08:59 Last Admin: 01/13/22 15:49 Dose: 400 mg Miscellaneous (Carbohydrates For Hypoglycemia ) 15 - 30 gm PO UD PRN PRN Reason: Hypoglycemia Protocol Stop: 01/16/22 16:16 Ondansetron HCl (Ondansetron Inj 2 Mg/Ml 2 Ml Vial) 4 mg IV Q4H PRN PRN Reason: Nausea And Vomiting Stop: 01/16/22 17:22 Last Admin: 01/08/22 09:10 Dose: 4 mg Tamsulosin HCl (Tamsulosin Hcl 0.4 Mg Cap) 0.4 mg PO HS [facility] Stop: 01/16/22 20:59 Last Admin: 01/12/22 23:29 Dose: 0.4 mg
[2022-01-13] MEDS: ATORVASTATIN 40 MG TAB PO SCH (21:00)
[2022-01-13] MEDS: TAMSULOSIN HCL 0.4 MG CAP PO SCH (21:00)
[2022-01-14] MEDS: FERROUS SULFATE 325 MG TAB PO SCH (09:30)
[2022-01-14] MEDS: carvediloL 12.5 MG TAB PO SCH ×2 (09:30→20:55)
[2022-01-14] MEDS: CLOPIDOGREL BISULFATE 75 MG TAB PO SCH (09:30)
[2022-01-14] MEDS: lisinopril 5 MG TAB PO SCH (09:31)
[2022-01-14] MEDS: INSULIN ASPART PER UNIT SC SCH ×4 (09:31→20:55)
[2022-01-14] MEDS: ENOXAPARIN 80 MG/0.8 ML SYR SQ SCH ×2 (09:31→20:55)
[2022-01-14] MEDS: MAGNESIUM OXIDE 400 MG TAB PO SCH ×3 (09:31→20:54)
[2022-01-14] MEDS: LANTUS PER UNIT CHARGE SQ SCH ×2 (09:34→22:00)
[2022-01-14] MEDS: BACLOFEN 10 MG TAB PO SCH (09:34)
--- NOTE | 2022-01-14 18:23 | Hospitalist Progress Note ---
Date of Service January 14, 2022 Assessment & Plan (1) Syncopal episodes: Plan: Presented to the ED after sending from Oncology clinic for syncope and Low BP Syncope Likely related to low BP and dehydration BP improved with IV fluids Amlodipine discontinued No recurrences while hospitalized (2) Anemia: Plan: As per prior hospitalist: Iron deficiency anemia Hgb dropped to 6.9 (12/22) Iron level 15 Received 1 unit PRBC's No sign of active bleeding FOBT negative Case discussed with hematology Dr. Huntley that recommended GI eval since it will be easy for GI to see the patient while in the hospital in case if GI want to do any procedure that we can transition him on Heparin drip GI consulted for poss. endoscopy S/P EGD on 12/23/21 showed:Normal esophagus. Normal stomach. Normal examined duodenum. No specimens collected. if pt can't be on AC, may need vascular surgery due to recent DVT in 10/25 to evaluate for IVC filter Discussed w/ Dr. Huntley, no need for IVC filter at this time Repeat hemoglobin following blood transfusion is 9.5 Source of blood loss unknown at this time, patient requiring therapeutic Lovenox twice daily for recent DVT. Plavix now. Aspirin remains on hold GI was notified and no indication for colonoscopy since FOBT was negative, no active bleeding and hgb improves We will monitor CBC-hemoglobin went up to more than 10 Hb went up to 11.3 as of 01/11/2022 and the kidney function and electrolytes remain unremarkable Hemoglobin remains stable (3) History of CVA (cerebrovascular accident): Plan: H/O CVA (cerebrovascular accident): Has dense right hemiplegia Continue PT Continue Plavix, Lipitor Plan to discontinue aspirin as below (4) CAD (coronary artery disease): Plan: CAD Paroxysmal atrial fibrillation: rate controlled with Carvedilol Continue anticoagulant with Lovenox ( monitor h/h closely) on 12/29 he had 9 beats of V. 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 tele monitor showed no arrhythmia Cardiology consulted - recommended if BP starts to increase while off the amlodipine to increase the Carvedilol or consider to increase Lisinopril Has significant aortic stenosis without any cardiac symptoms (6) Hypomagnesemia: Plan: Replace as needed (7) HTN (hypertension): Plan: Continue to hold Amlodipine, will d/c on discharge Continue Lisinopril 5mg Monitor (8) Type 2 diabetes mellitus: Plan: Type 2 diabetes mellitus: Hba1c back in August was 6.7 Continue Lantus and novolog sliding scale Continue monitor BS (9) DVT (deep venous thrombosis): Plan: HX of DVT Right LE DVT on 10/22/21 while on coumadin with therapeutic INR He had a stroke while on Eliquis Anticoagulant was changed to Lovenox 80mg BID , further monitoring per anticoagulation clinic Outpatient documentation with hematology 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 Decubitus Ulcer Pressure-induced deep tissue injury of right buttock & unstageable pressure ulcer to coccyx both POA continue daily wound care Wound care on board Reposition as able DVT Px: Lovenox SQ CODE STATUS: Full code Disposition PT/OT recommended inpatient rehab Waiting for placement Currently no facility able to accept patient Patient/Family prefer to get discharge home with Home health when arranged Admission and Anticipated Discharge Date Admission Date: December 19, 2021 Subjective Patient is seen and examined at bedside Offers no new complaints today Waiting for rehab placement Family at bedside Denies any chest pain, shortness of breath, dizziness, nausea, abdominal pain Review of Systems Review of Systems: All systems reviewed & are unremarkable except as noted in Subjective Physical Exam Physical Exam: Physical Exam: Vitals signs as noted above General Appearance:Moderately built and nourished, no apparent distress Head: normocephalic, Atraumatic Eyes: normal inspection, EOMI Neck: supple, Trachea midline Respiratory/Chest: Normal breath sounds, CTA Cardiovascular: S1, S2, +murmur Abdomen/GI:Soft, Non tender, Bowel sounds present Extremities/Musculoskeletal:normal inspection, no edema Neurologic/Psych:AAO, right hemiplegia, slightly slurred speech Skin: normal color, warm Results & Data Results & Data ([facility]) Vital Signs (Past 12 Hours) Vital Signs Temp Pulse Pulse Resp BP Pulse Ox O2 Del Method 01/14/22 15:37 36.9 C 66 18 118/71 97 Room Air 01/14/22 08:15 Room Air 01/14/22 06:42 36.5 C 70 18 124/64 98 Room Air
[2022-01-14] MEDS: TAMSULOSIN HCL 0.4 MG CAP PO SCH (20:54)
[2022-01-14] MEDS: ATORVASTATIN 40 MG TAB PO SCH (22:49)
[2022-01-15] MEDS: FERROUS SULFATE 325 MG TAB PO SCH (08:59)
[2022-01-15] MEDS: MAGNESIUM OXIDE 400 MG TAB PO SCH ×3 (09:00→20:06)
[2022-01-15] MEDS: lisinopril 5 MG TAB PO SCH (09:00)
[2022-01-15] MEDS: CLOPIDOGREL BISULFATE 75 MG TAB PO SCH (09:00)
[2022-01-15] MEDS: LANTUS PER UNIT CHARGE SQ SCH ×2 (09:03→20:22)
[2022-01-15] MEDS: BACLOFEN 10 MG TAB PO SCH (09:03)
[2022-01-15] MEDS: INSULIN ASPART PER UNIT SC SCH ×4 (09:03→20:15)
[2022-01-15] MEDS: ENOXAPARIN 80 MG/0.8 ML SYR SQ SCH ×2 (09:04→20:06)
[2022-01-15] MEDS: carvediloL 12.5 MG TAB PO SCH ×2 (10:26→20:06)
--- NOTE | 2022-01-15 17:52 | Hospitalist Progress Note ---
Date of Service January 15, 2022 Assessment & Plan (1) Syncopal episodes: Plan: Presented to the ED after sending from Oncology clinic for syncope and Low BP Syncope Likely related to low BP and dehydration BP improved with IV fluids Amlodipine discontinued No recurrences while hospitalized (2) Anemia: Plan: As per prior hospitalist: Iron deficiency anemia Hgb dropped to 6.9 (12/22) Iron level 15 Received 1 unit PRBC's No sign of active bleeding FOBT negative Case discussed with hematology Dr. Huntley that recommended GI eval since it will be easy for GI to see the patient while in the hospital in case if GI want to do any procedure that we can transition him on Heparin drip GI consulted for poss. endoscopy S/P EGD on 12/23/21 showed:Normal esophagus. Normal stomach. Normal examined duodenum. No specimens collected. if pt can't be on AC, may need vascular surgery due to recent DVT in 10/25 to evaluate for IVC filter Discussed w/ Dr. Huntley, no need for IVC filter at this time Repeat hemoglobin following blood transfusion is 9.5 Source of blood loss unknown at this time, patient requiring therapeutic Lovenox twice daily for recent DVT. Plavix now. Aspirin remains on hold GI was notified and no indication for colonoscopy since FOBT was negative, no active bleeding and hgb improves We will monitor CBC-hemoglobin went up to more than 10 Hb went up to 11.3 as of 01/11/2022 and the kidney function and electrolytes remain unremarkable Hemoglobin remains stable Advised to follow-up with hematology as outpatient (3) History of CVA (cerebrovascular accident): Plan: H/O CVA (cerebrovascular accident): Has dense right hemiplegia Continue PT Continue Plavix, Lipitor Plan to discontinue aspirin as below (4) CAD (coronary artery disease): Plan: CAD Paroxysmal atrial fibrillation: rate controlled with Carvedilol Continue anticoagulant with Lovenox ( monitor h/h closely) on 12/29 he had 9 beats of V. 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 tele monitor showed no arrhythmia Cardiology consulted - recommended if BP starts to increase while off the amlodipine to increase the Carvedilol or consider to increase Lisinopril Has significant aortic stenosis without any cardiac symptoms (6) Hypomagnesemia: Plan: Replace as needed (7) HTN (hypertension): Plan: Continue to hold Amlodipine, will d/c on discharge Continue Lisinopril 5mg Monitor (8) Type 2 diabetes mellitus: Plan: Type 2 diabetes mellitus: Hba1c back in August was 6.7 Continue Lantus and novolog sliding scale Continue monitor BS (9) DVT (deep venous thrombosis): Plan: HX of DVT Right LE DVT on 10/22/21 while on coumadin with therapeutic INR He had a stroke while on Eliquis Anticoagulant was changed to Lovenox 80mg BID , further monitoring per anticoagulation clinic Outpatient documentation with hematology 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 Decubitus Ulcer Pressure-induced deep tissue injury of right buttock & unstageable pressure ulcer to coccyx both POA continue daily wound care Wound care on board Reposition as able DVT Px: Lovenox SQ CODE STATUS: Full code Disposition PT/OT recommended inpatient rehab Waiting for placement Currently no facility able to accept patient Patient/Family prefer to get discharge home with Home health when arranged Admission and Anticipated Discharge Date Admission Date: December 19, 2021 Subjective Patient is seen and examined at bedside States having nausea earlier today but no vomiting Waiting for rehab placement Discussed with family at bedside Denies any chest pain, shortness of breath, dizziness, abdominal pain Review of Systems Review of Systems: All systems reviewed & are unremarkable except as noted in Subjective Physical Exam Physical Exam: Physical Exam: Vitals signs as noted above General Appearance:Moderately built and nourished, no apparent distress Head: normocephalic, Atraumatic Eyes: normal inspection, EOMI Neck: supple, Trachea midline Respiratory/Chest: Normal breath sounds, CTA Cardiovascular: S1, S2, +murmur Abdomen/GI:Soft, Non tender, Bowel sounds present Extremities/Musculoskeletal:normal inspection, no edema Neurologic/Psych:AAO, right hemiplegia, slightly slurred speech Skin: normal color, warm Results & Data Results & Data ([facility]) Vital Signs (Past 12 Hours) Vital Signs Temp Pulse Resp BP Pulse Ox O2 Del Method 01/15/22 17:07 37.3 C 76 18 133/78 97 Room Air 01/15/22 11:52 Room Air 01/15/22 07:33 36.5 C 74 18 182/75 H 94 Room Air
[2022-01-15] MEDS: ATORVASTATIN 40 MG TAB PO SCH (20:06)
[2022-01-15] MEDS: TAMSULOSIN HCL 0.4 MG CAP PO SCH (20:06)
--- NOTE | 2022-01-16 08:59 | Hospitalist Progress Note ---
Date of Service January 16, 2022 Assessment & Plan (1) Syncopal episodes: Plan: Presented to the ED after sending from Oncology clinic for syncope and Low BP Syncope Likely related to low BP and dehydration BP improved with IV fluids Amlodipine discontinued No recurrences while hospitalized Advised to follow up with Cardiology for further evaluation of Aortic Stenosis (2) Anemia: Plan: As per prior hospitalist: Iron deficiency anemia Hgb dropped to 6.9 (12/22) Iron level 15 Received 1 unit PRBC's No sign of active bleeding FOBT negative Case discussed with hematology Dr. Huntley that recommended GI eval since it will be easy for GI to see the patient while in the hospital in case if GI want to do any procedure that we can transition him on Heparin drip GI consulted for poss. endoscopy S/P EGD on 12/23/21 showed:Normal esophagus. Normal stomach. Normal examined duodenum. No specimens collected. if pt can't be on AC, may need vascular surgery due to recent DVT in 10/25 to evaluate for IVC filter Discussed w/ Dr. Huntely, no need for IVC filter at this time Repeat hemoglobin following blood transfusion is 9.5 Source of blood loss unknown at this time, patient requiring therapeutic Lovenox twice daily for recent DVT. Plavix now. Aspirin remains on hold GI was notified and no indication for colonoscopy since FOBT was negative, no active bleeding and hgb improves We will monitor CBC-hemoglobin went up to more than 10 Hb went up to 11.3 as of 01/11/2022 and the kidney function and electrolytes remain unremarkable Hemoglobin remains stable Advised to follow-up with hematology as outpatient (3) History of CVA (cerebrovascular accident): Plan: H/O CVA (cerebrovascular accident): Has dense right hemiplegia Continue PT Continue Plavix, Lipitor Plan to discontinue aspirin as below (4) CAD (coronary artery disease): Plan: CAD Paroxysmal atrial fibrillation: rate controlled with Carvedilol Continue anticoagulant with Lovenox ( monitor h/h closely) on 12/29 he had 9 beats of V. 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 tele monitor showed no arrhythmia Cardiology consulted - recommended if BP starts to increase while off the amlodipine to increase the Carvedilol or consider to increase Lisinopril Has significant aortic stenosis without any cardiac symptoms (6) Hypomagnesemia: Plan: Replace as needed (7) HTN (hypertension): Plan: Continue to hold Amlodipine, will d/c on discharge Continue Lisinopril 5mg Monitor (8) Type 2 diabetes mellitus: Plan: Type 2 diabetes mellitus: Hba1c back in August was 6.7 Continue Lantus and novolog sliding scale Continue monitor BS (9) DVT (deep venous thrombosis): Plan: HX of DVT Right LE DVT on 10/22/21 while on coumadin with therapeutic INR He had a stroke while on Eliquis Anticoagulant was changed to Lovenox 80mg BID , further monitoring per anticoagulation clinic Outpatient documentation with hematology 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 Decubitus Ulcer Pressure-induced deep tissue injury of right buttock & unstageable pressure ulcer to coccyx both POA continue daily wound care Wound care on board Reposition as able DVT Px: Lovenox SQ CODE STATUS: Full code Disposition PT/OT recommended inpatient rehab Currently no facility able to accept patient Patient/Family prefer to get discharge home with Home health Plan to discharge home with today Admission and Anticipated Discharge Date Admission Date: December 19, 2021 Subjective Patient is seen and examined at bedside Nausea resolved No new complaints Discussed with patient's family today Denies any chest pain, shortness of breath, dizziness, abdominal pain Plan to be discharged home today Review of Systems Review of Systems: All systems reviewed & are unremarkable except as noted in Subjective Physical Exam Physical Exam: Physical Exam: Vitals signs as noted above General Appearance:Moderately built and nourished, no apparent distress Head: normocephalic, Atraumatic Eyes: normal inspection, EOMI Neck: supple, Trachea midline Respiratory/Chest: Normal breath sounds, CTA Cardiovascular: S1, S2, +murmur Abdomen/GI:Soft, Non tender, Bowel sounds present Extremities/Musculoskeletal:normal inspection, no edema Neurologic/Psych:AAO, right hemiplegia, slightly slurred speech Skin: normal color, warm Results & Data Results & Data ([facility]) Vital Signs (Past 12 Hours) Vital Signs Temp Pulse Resp BP Pulse Ox O2 Del Method 01/16/22 07:28 36.5 C 75 16 125/70 98 Room Air 01/16/22 00:15 Room Air
[2022-01-16] MEDS: CLOPIDOGREL BISULFATE 75 MG TAB PO SCH (09:10)
[2022-01-16] MEDS: ENOXAPARIN 80 MG/0.8 ML SYR SQ SCH (09:10)
[2022-01-16] MEDS: BACLOFEN 10 MG TAB PO SCH (09:10)
[2022-01-16] MEDS: carvediloL 12.5 MG TAB PO SCH (09:10)
[2022-01-16] MEDS: FERROUS SULFATE 325 MG TAB PO SCH (09:13)
[2022-01-16] MEDS: lisinopril 5 MG TAB PO SCH (09:14)
[2022-01-16] MEDS: MAGNESIUM OXIDE 400 MG TAB PO SCH ×2 (09:14→14:01)
[2022-01-16] MEDS: INSULIN ASPART PER UNIT SC SCH ×3 (09:32→16:15)
--- NOTE | 2022-01-16 13:47 | Discharge Summary ---
Date of Service January 16, 2022 Admission HPI Per Admitting Provider This is a 61 yo M with PMHx of Right lower extremity DVT found on 10/22/2021, on oral Coumadin, switched to Lovenox twice daily, history of multiple CVA, chronic right hemiparesis, started in 2018 and since then has had 3-4 episodes. MRI done 08/2021 showed multiple lacunar infarcts. It appears that he had strokes while on Coumadin as well as Eliquis. 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 He came to oncology clinic in wheelchair and found to have significantly low blood pressure and had syncopal episode, his blood sugar was in the normal range at 133 at that time. He did take lisinopril 5 mg earlier today around 8 AM. His blood pressure improved to 97/70, O2 sats were stable between 95 to 100% on room air. Was sent to the ER for further evaluation of syncopal event and low blood pressure. reports this occurred while transport was rolling him in wheelchair back to an exam room at the oncology office. Patient does not recall any presyncopal symptoms or complaint of heart palpitations or flutter. His brings up that she has [facility]. She denies that he has recently had any type of Holter monitor recording but may have had this sometime in the past. notes his primary dicer machine operator is Dr. Melendrez. In regards to RLE DVT with previous treatment of Coumadin and Eliquis oncology is recommending long-term anticoagulant treatment with Lovenox and has been on lovenox for approximately 1.5 months now. Admission Exam Per Admitting Provider Physical Exam Physical Exam: General: awake, alert, no apparent distress, + right sided paraplegia, slurred speech is chronic s/p multiple strokes Head: Normocephalic, atraumatic ENT: PERRL, EOMI, no pharyngeal exudate, +mucous membranes dry Chest: Clear to auscultation, on room air, no adventitious breath sounds Cardiac: Regular rate and rhythm, + loud systolic ejection murmur, no JVD, normal peripheral pulses, good capillary refill Abdominal: NABS x 4 quadrants, soft, nondistended, nontender to palpation, no rebound or guarding Buttocks: decubitus ulceration x 3, open, will require dressings and pressure offloading, pt has soiled depends on, incontinent at baseline. Extremities: Normal inspection, no peripheral edema or erythema, calfs nontender to palpation Psych: Normal mood and affect Neuro: AAO to self and place, strength intact bilaterally and rated 3/5 in LLE and LUE, hemiplegia on R side, speech slurred chronically Principal Diagnosis Syncope Anemia of chronic disease Hypomagnesemia Discharge Data Allergies Allergy/AdvReac Type Severity Reaction Status Date / Time No Known Allergies Allergy Verified 12/17/21 15:21 Consultations 12/17/21 14:51 ED Decision to Admit Stat 12/17/21 17:23 Consult Cardiology Routine 12/21/21 14:40 Consult Gastroenterology Routine Procedures Performed Operation Date: 12/23/21 16:45 Actual Procedures p Esophagogastroduodenoscopy - [facility], Hospital Course (1) Syncopal episodes: Presented to the ED after sending from Oncology clinic for syncope and Low BP Syncope Likely related to low BP and dehydration BP improved with IV fluids Amlodipine discontinued No recurrences while hospitalized Advised to follow up with Cardiology for further evaluation of Aortic Stenosis (2) Anemia: As per prior hospitalist: Iron deficiency anemia Hgb dropped to 6.9 (12/22) Iron level 15 Received 1 unit PRBC's No sign of active bleeding FOBT negative Case discussed with hematology Dr. Huntley that recommended GI eval since it will be easy for GI to see the patient while in the hospital in case if GI want to do any procedure that we can transition him on Heparin drip GI consulted for poss. endoscopy S/P EGD on 12/23/21 showed:Normal esophagus. Normal stomach. Normal examined duodenum. No specimens collected. if pt can't be on AC, may need vascular surgery due to recent DVT in 10/25 to evaluate for IVC filter Discussed w/ Dr. Huntley, no need for IVC filter at this time Repeat hemoglobin following blood transfusion is 9.5 Source of blood loss unknown at this time, patient requiring therapeutic Lovenox twice daily for recent DVT. Plavix now. Aspirin remains on hold GI was notified and no indication for colonoscopy since FOBT was negative, no active bleeding and hgb improves We will monitor CBC-hemoglobin went up to more than 10 Hb went up to 11.3 as of 01/11/2022 and the kidney function and electrolytes remain unremarkable Hemoglobin remains stable Advised to follow-up with hematology as outpatient (3) History of CVA (cerebrovascular accident): H/O CVA (cerebrovascular accident): Has dense right hemiplegia Continue PT Continue Plavix, Lipitor Plan to discontinue aspirin as below (4) CAD (coronary artery disease): CAD Paroxysmal atrial fibrillation: rate controlled with Carvedilol Continue anticoagulant with Lovenox ( monitor h/h closely) on 12/29 he had 9 beats of V. tach noted on tile molder hand electrolytes No arrhythmia noted on telemonitor Continue Plavix, Lovenox, Lipitor (Continue to hold ASA, previous hospitalist team discussed w/ cardiology and hem/onc) will discontinue asa on discharge No acute cardiac symptoms (5) Aortic valve stenosis: Repeat echocardiogram demonstrating stable borderline severe aortic valve stenosis with concentric left ventricular hypertrophy and hyperdynamic LV function. tele monitor showed no arrhythmia Cardiology consulted - recommended if BP starts to increase while off the amlodipine to increase the Carvedilol or consider to increase Lisinopril Has significant aortic stenosis without any cardiac symptoms (6) Hypomagnesemia: Replace as needed (7) HTN (hypertension): Continue to hold Amlodipine, will d/c on discharge Continue Lisinopril 5mg Monitor (8) Type 2 diabetes mellitus: Type 2 diabetes mellitus: Hba1c back in August was 6.7 Continue Lantus and novolog sliding scale Continue monitor BS (9) DVT (deep venous thrombosis): HX of DVT Right LE DVT on 10/22/21 while on coumadin with therapeutic INR He had a stroke while on Eliquis Anticoagulant was changed to Lovenox 80mg BID , further monitoring per anticoagulation clinic Outpatient documentation with hematology recommended to continue Lovenox longterm Decubitus Ulcer Pressure-induced deep tissue injury of right buttock & unstageable pressure ulcer to coccyx both POA continue daily wound care Wound care on board Reposition as able DVT Px: Lovenox SQ CODE STATUS: Full code Disposition PT/OT recommended inpatient rehab Currently no facility able to accept patient Patient/Family prefer to get discharge home with Home health Plan to discharge home with HH today Total Time Total Time Spent Total Time Spent (In Minutes): 48 minutes Discharge Plan Discharge Items Patient Disposition: Home - Home Health Services Reason For Visit: SYNCOPAL EPISODE Discharge Diagnosis: Syncope Anemia of chronic disease Hypomagnesemia Activity: Per Instructions section Exercise/Sports: Gradually increase as tolerated Non-emergency contact: Primary Care Provider, Specialist and Clock Repair Technician Call non-emergency contact if: you have any medication questions, your symptoms worsen, your pain is concerning for you and you have a fever Follow-up/Referrals: Shane Gonzalez MD [Primary Care Provider] - (Date & Time 01/25/2022 12:00 PM Provider Shane Gonzalez MD Department General Internal Medicine [facility] ) Dietitian Info: Minced and moist Diet: Carb Consistent or DM2 and Heart Healthy Addtl Attending Provider Instructions: Follow-up with your primary care physician on 01/25/2022 12:00 PM Follow-up with your dicer machine operator for further evaluation of aortic stenosis Follow-up with your riveter hand Dr. Huntley for further management of anemia Seek immediate medical attention if your symptoms reoccur or worsen Please take all medications as instructed on discharge list below. Please call if you have any questions or problems. You can reach a [facility] hospitalist on duty at [facility] 24 hours a day by calling [phone] Pending Studies at Discharge: No Stand-Alone Forms: My [facility], Smoking Cessation Medications and DC Order Prescriptions: New ferrous sulfate 325 mg (65 mg iron) Tablet,Delayed Release (Dr/Ec) 325 mg PO QAM Qty: 30 0RF magnesium oxide 400 mg (241.3 mg magnesium) Tablet 400 mg PO DAILY Qty: 30 0RF Continued nitroglycerin 0.4 mg tablet, sublingual 0.4 mg sublingual DIRECTED PRN (Reason: Chest Pain) Rx Instructions: PLACE ONE TABLET UNDER THE TONGUE EVERY 5 MINUTES FOR UP TO 3 DOSES OVER 15 MINUTES IF NEEDED FOR CHEST PAIN insulin aspart U-100 [Novolog U-100 Insulin aspart] 100 unit/mL solution 10 unit subcut AC tamsulosin 0.4 mg capsule 0.4 mg PO HS lisinopril 10 mg tablet 5 mg PO DAILY Qty: 0 0RF carvedilol 12.5 mg tablet 12.5 mg PO BID Qty: 60 0RF Rx Instructions: TAKE THIS MEDICATION WITH FOOD insulin glargine [Lantus U-100 Insulin] 100 unit/mL solution See Rx Instructions .ROUTE .COMPLEX Qty: 10 0RF Rx Instructions: take 14 units in am & 10 units in pm clopidogrel [Plavix] 75 mg tablet 75 mg PO QAM Qty: 30 0RF baclofen 5 mg tablet 5 mg PO QAM Qty: 30 0RF atorvastatin 80 mg tablet 80 mg PO QPM metformin 500 mg tablet 500 mg PO BID enoxaparin 80 mg/0.8 mL syringe 0.8 ml subcut AM[facility] Discontinued amlodipine [Norvasc] 5 mg tablet 5 mg PO QAM Qty: 30 0RF aspirin 81 mg Tablet,Delayed Release (Dr/Ec) 81 mg PO QAM Qty: 30 0RF Discharge Orders: Discharge Order (Routine); Ordered 01/16/22 Ordered By: Alfred Wetzel Admission Data Admit Date/Time: 12/19/21 20:30 Attending Provider: Alfred Wetzel Admit Provider: Matthew Leigh Primary Care Provider: Shane Gonzalez Other Providers: Fabián Ortiz ; Rigo Roa ; Matthew Leigh ; Bentley Boykin ; [facility] ; [facility] Other Interventions: Discharge Summary Assessment (RN) Last Done: 12/23/21 14:22
== END 2022-01-16 17:08 | disposition home health service (06) | DRG 641 ==
LOC: ED 12:45 → 2S 12:45 → SUATTDRO 15:30 → 2S 17:10 → SUATTDRO 12-19 20:30 → 3N 01-02 22:45
DX: Z79.01 Long term (current) use of anticoagulants; I25.2 Old myocardial infarction; Z86.718 Personal history of other venous thrombosis and embolism; Z79.4 Long term (current) use of insulin; Z95.1 Presence of aortocoronary bypass graft; E11.9 Type 2 diabetes mellitus without complications; Z68.25 Body mass index [BMI] 25.0-25.9, adult; R55 Syncope and collapse; I10 Essential (primary) hypertension; L89.95 Pressure ulcer of unspecified site, unstageable; I95.89 Other hypotension; I25.10 Atherosclerotic heart disease of native coronary artery without angina pectoris; I69.351 Hemiplegia and hemiparesis following cerebral infarction affecting right dominant side; L89.316 Pressure-induced deep tissue damage of right buttock; D50.9 Iron deficiency anemia, unspecified; E66.9 Obesity, unspecified; I65.29 Occlusion and stenosis of unspecified carotid artery; I35.0 Nonrheumatic aortic (valve) stenosis; I48.0 Paroxysmal atrial fibrillation; Z79.02 Long term (current) use of antithrombotics/antiplatelets; E83.42 Hypomagnesemia; L89.150 Pressure ulcer of sacral region, unstageable; Z87.891 Personal history of nicotine dependence; E86.0 Dehydration

== ENCOUNTER 2022-08-09 11:51 | Inpatient (IN) ==
[2022-08-09] MEDS ORDERED: SODIUM CHLORIDE 0.9% 1000ML 500 ML IV ONE ×2 (12:34→15:02)
--- NOTE | 2022-08-09 12:42 | Emergency Department Note ---
Impression & Plan Hypotension, Acute dehydration, Anemia, Heme positive stool, Elevated troponin ED Provider Note NAME: TREVIN POPE AGE: 62 SEX: M : 1960 ARRIVES VIA: Ambulance INFORMANT: [] ED PROVIDER(S): [Donny Steele MD] CHIEF COMPLAINT: Lethargic HISTORY OF PRESENT ILLNESS: The patient is a 62-year-old male who has a history of CVA. He is nonverbal and immobile. The patient is on Lovenox twice a day. Lately, he has been anemic. 2 days ago, he seemed overly sleepy. Blood sugar was low in the 50s. He received some sugar and seemed to improve mentally. He was not brought to the hospital. Yesterday, his noticed some chest congestion, she was concerne for pneumonia or aspiration even. Today, the patient was again lethargic and had a lower blood pressure. He was brought to the hospital for evaluation at the advice of the family doctor's office. No fever recorded. No bloody diarrhea seen, no black stool seen. His does believe he is more pale than baseline. She states he has no history of previous GI bleeding. PMHx/PSHx: See Below SOCIAL HISTORY: See Below. PHYSICAL EXAM: GENERAL: Patient is in no acute distress. HEENT: No acute trauma, normocephalic atraumatic, mucous membranes moist, no nasal congestion. NECK: No stridor, no adenopathy, no meningismus, trachea is midline. LUNGS: No obvious wheezing or rhonchi, no respiratory distress. HEART: 3/6 systolic murmur, regular rate and rhythm. ABDOMEN: Soft, nontender, bowel sounds positive, no peritonitis. EXTREMITIES: No cyanosis. There is some edema to the left upper extremity and to the right lower extremity and right thigh. NEUROLOGIC: Awake, nonverbal, minimal movement noted of the left lower e xtremity. SKIN: No rash, no jaundice, no diaphoresis. Pale. Rectal: Brown stool, trace heme positive. DIFFERENTIAL DIAGNOSIS: GI bleeding, anemia, dehydration, electrolyte imbalance, sepsis or infection, aspiration, stroke, among others. EMERGENCY DEPARTMENT COURSE/PROCEDURES: Prior/Outside records reviewed: EMS records. ECG per my interpretation: Indication was weakness. The ECG shows a normal sinus rhythm with an old inferior infarct. There were inverted T waves in the high lateral leads. There is an old anterior septal infarct. There was no concerning ST elevation, no PVCs. The QTc was 445. Compared to an ECG from 17 December 2021, the inverted T wave changes across the high lateral leads are more pronounced. Continuous Cardiac Monitoring per my interpretation: An order was placed for continuous cardiac monitoring. The monitor shows a rate of 93 with normal sinus rhythm. Critical Care Note: I have personally spent 52 minutes of critical care time in the direct management of this patient. This includes bedside care, interpretation of diagnostic studies, and testing, discussion with consultants, patient, and family members, and other required patient management activities. This 52 minutes is in excess of all separately billable procedures. Femoral central line placement: This procedure was performed by me. The area for the procedure was cleansed sterilely and prepared for the procedure. Lidocaine was used for anesthesia. Sterile technique was employed. Using the Seldinger technique, I was able to cannulate the right femoral vein. No significant complications. There was no arterial stick during the procedure. All ports did flush well. The line was then sutured into position. MEDICAL DECISION MAKING: There was no leukocytosis. The patient was quite anemic though with a hemoglobin of 5.9. I did perform a rectal exam, the stool was brown and trace heme positive. There was a normal platelet count. INR was 1.2, slightly elevated. PTT was slightly elevated. Sodium was low at 130, there was a normal creatinine. Lactic acid level was not elevated making sepsis less likely. Magnesium and calcium were both slightly low. No worrisome liver enzyme elevation. Ammonia level was not not elevated. Total CK was not elevated making rhabdomyolysis unlikely. ECG showed a normal sinus rhythm with an old inferior and old anterior infarct. There were some T wave changes as noted above however, the changes appeared fairly similar to previous ECGs. Cardiac t roponin returned elevated at 1135 this troponin elevation could be secondary to cardiac injury or potentially mismatch from the hypotension and anemia. Urinalysis did not show infection. Chest film did not show pneumonia or CHF per my review. Brain CT showed older changes, no acute bleed or mass effect. Flu and COVID testing is still pending. The patient received 1 L of IV saline for hydration. He received IV Protonix for the possibility of GI bleeding. He was given IV magnesium. Patient was ordered for 2 units of packed red blood cells to be transfused. The patient's did sign consent for the transfusion. I spoke with the patient and his , hospitalization is indicated. I did consult Dr. Pan of cardiology. At this point, no emergent cardiac intervention was felt warranted. The patient requires medical treatment, primarily red blood cell transfusion. I did talk to case management, the on-call hospitalist was consulted. DISPOSITION: Patient's presentation and findings warrant a hospital stay. Past Med/Surg History Medical History Aortic valve stenosis BPH with obstruction/lower urinary tract symptoms CAD (coronary artery disease) Carotid stenosis Diabetic peripheral neuropathy associated with type 2 diabetes mellitus Dyslipidemia Hemiplegia affecting right dominant side History of CVA (cerebrovascular accident) History of pancreatitis HTN (hypertension) Hypomagnesemia Monoplegia affecting right dominant side Obesity Osteomyelitis of [place] of right foot Proliferative diabetic retinopathy Retinal edema Right foot drop Status post cerebrovascular accident Status post myocardial infarction Superior mesenteric artery stenosis Type 2 diabetes mellitus Surgical History Hx of vitrectomy S/P angioplasty with stent S/P CABG x 3 S/P PTCA (percutaneous transluminal coronary angioplasty) Family History Father Heart disease Social History Smoking Status: Former smoker Tobacco Type: Cigarettes Second Hand Exposure: No; Hx Alcohol Use: No Hx Substance Use: No Preferred Language: Finnish Communication Ability: Impaired Visual Impairment: No Limitations Hearing Ability: Normal Transcription Coordinator Required: No Beliefs That Will Affect Care: None marital status: Current Living Situation: Spouse Current Living Situation Comment: Lives with in a split level home but he is in basement current occupational status: disabled Feels Safe at Home: Yes Assistive Devices: Wheelchair Allergies Allergies Allergy/AdvReac Type Severity Reaction Status Date / Time No Known Allergies Allergy Verified 08/09/22 15:58 Home Meds Home Medications Medication Instructions Recorded Confirmed nitroglycerin 0.4 mg sublingual 0.4 mg sublingual DIRECTED PRN 08/09/19 0 08/09/22 tablet Chest Pain insulin aspart U-100 100 unit/mL 10 unit subcut AC 01/11/21 08/09/22 subcutaneous solution (Novolog U-100 Insulin aspart) tamsulosin 0.4 mg capsule 0.4 mg PO HS 01/11/21 08/09/22 atorvastatin 80 mg tablet 80 mg PO QPM 05/17/21 08/09/22 enoxaparin 80 mg/0.8 mL 0.8 ml subcut AMHS 12/17/21 08/09/22 subcutaneous syringe lisinopril 5 mg tablet 5 mg PO QAM 08/09/22 08/09/22 metformin 500 mg tablet,extended 500 mg PO AMHS 08/09/22 08/09/22 release 24 hr Previous Rx's Medication Instructions Recorded baclofen 5 mg tablet 5 mg PO QAM #30 tabs 09/22/20 carvedilol 12.5 mg tablet 12.5 mg PO BID #60 tabs 09/22/20 clopidogrel 75 mg tablet (Plavix) 75 mg PO QAM #30 tabs 09/22/20 insulin glargine 100 unit/mL See Rx Instructions .Route 09/22/20 subcutaneous solution (Lantus .COMPLEX #10 mL U-100 Insulin) ferrous sulfate 325 mg (65 mg 325 mg PO QAM #30 tabs 01/15/22 iron) tablet,delayed release Results & Data (ED) Vital Signs Vital Signs - 24 hr 08/09/22 12:02 08/09/22 12:20 08/09/22 12:34 Temperature 36.8 C Temperature Source Oral Pulse Rate 80 82 Pulse Rate from SpO2 Sensor Respiratory Rate 17 Respiratory Effort / Characteristics Non-Labored Spontaneous Respiratory Depth Normal Blood Pressure 86/46 L Blood Pressure Mean 59 Blood Pressure Position Pulse Oximetry 100 Oxygen Delivery Method Room Air Room Air Sepsis New/Unexplained Change in Mental Status N/A Sepsis Action Taken by Nursing No Action Required 08/09/22 12:18 08/09/22 12:18 08/09/22 12:30 Temperature Temperature Source Pulse Rate 82 Pulse Rate from SpO2 Sensor 82 Respiratory Rate 27 H Respiratory Effort / Characteristics Respiratory Depth Blood Pressure 92/57 L 87/58 L Blood Pressure Mean 68 67 Blood Pressure Position Pulse Oximetry 93 Oxygen Delivery Method Sepsis New/Unexplained Change in Mental Status Sepsis Action Taken by Nursing 08/09/22 12:30 08/09/22 13:00 08/09/22 13:30 Temperature Temperature Source Pulse Rate 79 81 85 Pulse Rate from SpO2 Sensor 80 Respiratory Rate 25 H 28 H 27 H Respiratory Effort / Characteristics Respiratory Depth Blood Pressure Blood Pressure Mean Blood Pressure Position Pulse Oximetry 77 L Oxygen Delivery Method Sepsis New/Unexplained Change in Mental Status Sepsis Action Taken by Nursing 08/09/22 14:00 08/09/22 14:30 08/09/22 15:00 Temperature Temperature Source Pulse Rate 82 85 89 Pulse Rate from SpO2 Sensor Respiratory Rate 27 H 25 H 23 Respiratory Effort / Characteristics Respiratory Depth Blood Pressure Blood Pressure Mean Blood Pressure Position Pulse Oximetry Oxygen Delivery Method Sepsis New/Unexplained Change in Mental Status Sepsis Action Taken by Nursing 08/09/22 15:06 08/09/22 15:06 08/09/22 16:29 Temperature 36.8 C Temperature Source Oral Pulse Rate 93 H 95 H Pulse Rate from SpO2 Sensor 93 H Respiratory Rate 30 H 14 Respiratory Effort / Characteristics Respiratory Depth Blood Pressure 131/54 L 81/52 L Blood Pressure Mean 79 61 Blood Pressure Position Lying Pulse Oximetry 100 100 Oxygen Delivery Method Sepsis New/Unexplained Change in Mental Status Sepsis Action Taken by [facility] Medications Current Medication List: was personally reviewed by me Laboratory Data Attestation: I reviewed the patient's lab results. 08/09/22 15:05 08/09/22 15:05 Lab Results 08/09/22 08/09/22 08/09/22 Range/Units 15:05 15:05 15:05 WBC 7.27 (4.8-10.8) K/ul RBC 2.63 L (4.70-6.10) M/uL Hgb 5.9 L* (14.0-18.0) g/dl Hct 20.1 L* (42.0-52.0) % MCV 76.4 L (80.0-100.0) fL MCH 22.4 L (25.0-34.0) pg MCHC 29.4 L (32.0-36.0) g/dL RDW Std Deviation 54.3 H (36.4-46.3) fL RDW Coeff of Caroline 19.5 H (11.5-14.5) % Plt Count 346 (130-400) K/uL MPV 10.0 (9.4-12.4) fL Immature Gran % (Auto) 0.3 % Neut % (Auto) 75.4 % Lymph % (Auto) 16.1 % [place] % (Auto) 7.2 % Eos % (Auto) 0.6 % Baso % (Auto) 0.4 % Neut # (Auto) 5.49 (1.40-6.50) K/uL Lymph # (Auto) 1.17 L (1.2-3.4) K/uL [place] # (Auto) 0.52 (0.11-0.59) K/uL Eos # (Auto) 0.04 (0-0.50) K/uL Baso # (Auto) 0.03 (0-0.2) K/uL Immature Gran # (Auto) 0.02 (0.01-0.20) K/uL Anisocytosis Present Ovalocytes 1+ Echinocytes 1+ PT (9.0-12.0) Seconds INR (0.9-1.1) APTT (21.0-31.0) Seconds PTT Ratio Sodium 130 L (136-145) mmol/L Potassium 4.4 (3.5-5.1) mmol/L Chloride 100 (98-107) mmol/L Carbon Dioxide 26 (21-32) mmol/L Anion Gap 4 (3-11) BUN 11 (6-23) mg/dl Creatinine 0.44 L (0.6-1.4) mg/dl Est Cr Clr Drug Dosing Not Reportable Est GFR ( Amer) 139.9 ml/min Est GFR (Non-Af Amer) 120.7 ml/min BUN/Creatinine Ratio 25.0 H (10-20) Glucose 154 H (70-99(Fasting)) mg/dl Lactate 1.5 (0.4-2.0) mmol/L Calcium 7.5 L (8.5-10.1) mg/dl Magnesium 1.6 L (1.7-2.4) mg/dl Total Bilirubin 0.9 (0.2-1.0) mg/dl Direct Bilirubin 0.1 (0-0.2) mg/dl AST 7 L (13-39) U/L ALT 14 (7-52) U/L Alkaline Phosphatase 109 H (34-104) U/L Ammonia (18-72) umol/L Total Creatine Kinase 175 (30-223) U/L Troponin I High Sens 1135.4 H* (0-20) pg/ml Total Protein 5.5 L (6.0-8.3) gm/dl Albumin 2.6 L (3.4-5.0) gm/dl Procalcitonin (0-0.5) ng/ml Urine Color Urine Appearance (Clear) Urine pH (4.5-7.5) Ur Specific [place] (1.000-1.030) Urine Protein (Negative) Urine Glucose (UA) (Negative) Urine Ketones (Negative) Urine Blood (Negative) Urine Nitrite (Negative) Urine Bilirubin (Negative) Urine Urobilinogen (Negative) Ur Leukocyte Esterase (Negative) Urine WBC (Auto) (0-5) /hpf Urine RBC (Auto) (0-4) /hpf U Hyaline Cast (Auto) (0-5) /lpf U Epithel Cells (Auto) (0-5) /lpf Urine Bacteria (Auto) (Negative) Ur Renal Epithelial Cell Urine Yeast Blood Type Antibody Screen Crossmatch 08/09/22 08/09/22 08/09/22 Range/Units 15:05 15:05 15:05 WBC (4.8-10.8) K/ul RBC (4.70-6.10) M/uL Hgb (14.0-18.0) g/dl Hct (42.0-52.0) % MCV (80.0-100.0) fL MCH (25.0-34.0) pg MCHC (32.0-36.0) g/dL RDW Std Deviation (36.4-46.3) fL RDW Coeff of Caroline (11.5-14.5) % Plt Count (130-400) K/uL MPV (9.4-12.4) fL Immature Gran % (Auto) % Neut % (Auto) % Lymph % (Auto) % [place] % (Auto) % Eos % (Auto) % Baso % (Auto) % Neut # (Auto) (1.40-6.50) K/uL Lymph # (Auto) (1.2-3.4) K/uL [place] # (Auto) (0.11-0.59) K/uL Eos # (Auto) (0-0.50) K/uL Baso # (Auto) (0-0.2) K/uL Immature Gran # (Auto) (0.01-0.20) K/uL Anisocytosis Ovalocytes Echinocytes PT 13.0 H (9.0-12.0) Seconds INR 1.2 H (0.9-1.1) APTT 33.1 H (21.0-31.0) Seconds PTT Ratio 1.2 Sodium (136-145) mmol/L Potassium (3.5-5.1) mmol/L Chloride (98-107) mmol/L Carbon Dioxide (21-32) mmol/L Anion Gap (3-11) BUN (6-23) mg/dl Creatinine (0.6-1.4) mg/dl Est Cr Clr Drug Dosing Est GFR ( Amer) ml/min Est GFR (Non-Af Amer) ml/min BUN/Creatinine Ratio (10-20) Glucose (70-99(Fasting)) mg/dl Lactate (0.4-2.0) mmol/L Calcium (8.5-10.1) mg/dl Magnesium (1.7-2.4) mg/dl Total Bilirubin (0.2-1.0) mg/dl Direct Bilirubin (0-0.2) mg/dl AST (13-39) U/L ALT (7-52) U/L Alkaline Phosphatase (34-104) U/L Ammonia 25.0 (18-72) umol/L Total Creatine Kinase (30-223) U/L Troponin I High Sens (0-20) pg/ml Total Protein (6.0-8.3) gm/dl Albumin (3.4-5.0) gm/dl Procalcitonin 0.05 (0-0.5) ng/ml Urine Color Urine Appearance (Clear) Urine pH (4.5-7.5) Ur Specific [place] (1.000-1.030) Urine Protein (Negative) Urine Glucose (UA) (Negative) Urine Ketones (Negative) Urine Blood (Negative) Urine Nitrite (Negative) Urine Bilirubin (Negative) Urine Urobilinogen (Negative) Ur Leukocyte Esterase (Negative) Urine WBC (Auto) (0-5) /hpf Urine RBC (Auto) (0-4) /hpf U Hyaline Cast (Auto) (0-5) /lpf U Epithel Cells (Auto) (0-5) /lpf Urine Bacteria (Auto) (Negative) Ur Renal Epithelial Cell Urine Yeast Blood Type Antibody Screen Crossmatch 08/09/22 08/09/22 Range/Units 15:09 15:50 WBC (4.8-10.8) K/ul RBC (4.70-6.10) M/uL Hgb (14.0-18.0) g/dl Hct (42.0-52.0) % MCV (80.0-100.0) fL MCH (25.0-34.0) pg MCHC (32.0-36.0) g/dL RDW Std Deviation (36.4-46.3) fL RDW Coeff of Caroline (11.5-14.5) % Plt Count (130-400) K/uL MPV (9.4-12.4) fL Immature Gran % (Auto) % Neut % (Auto) % Lymph % (Auto) % [place] % (Auto) % Eos % (Auto) % Baso % (Auto) % Neut # (Auto) (1.40-6.50) K/uL Lymph # (Auto) (1.2-3.4) K/uL [place] # (Auto) (0.11-0.59) K/uL Eos # (Auto) (0-0.50) K/uL Baso # (Auto) (0-0.2) K/uL Immature Gran # (Auto) (0.01-0.20) K/uL Anisocytosis Ovalocytes Echinocytes PT (9.0-12.0) Seconds INR (0.9-1.1) APTT (21.0-31.0) Seconds PTT Ratio Sodium (136-145) mmol/L Potassium (3.5-5.1) mmol/L Chloride (98-107) mmol/L Carbon Dioxide (21-32) mmol/L Anion Gap (3-11) BUN (6-23) mg/dl Creatinine (0.6-1.4) mg/dl Est Cr Clr Drug Dosing Est GFR ( Amer) ml/min Est GFR (Non-Af Amer) ml/min BUN/Creatinine Ratio (10-20) Glucose (70-99(Fasting)) mg/dl Lactate (0.4-2.0) mmol/L Calcium (8.5-10.1) mg/dl Magnesium (1.7-2.4) mg/dl Total Bilirubin (0.2-1.0) mg/dl Direct Bilirubin (0-0.2) mg/dl AST (13-39) U/L ALT (7-52) U/L Alkaline Phosphatase (34-104) U/L Ammonia (18-72) umol/L Total Creatine Kinase (30-223) U/L Troponin I High Sens (0-20) pg/ml Total Protein (6.0-8.3) gm/dl Albumin (3.4-5.0) gm/dl Procalcitonin (0-0.5) ng/ml Urine Color Dark Yellow Urine Appearance Clear (Clear) Urine pH 5.5 (4.5-7.5) Ur Specific [place] 1.019 (1.000-1.030) Urine Protein Negative (Negative) Urine Glucose (UA) Negative (Negative) Urine Ketones Negative (Negative) Urine Blood Negative (Negative) Urine Nitrite Negative (Negative) Urine Bilirubin Negative (Negative) Urine Urobilinogen Negative (Negative) Ur Leukocyte Esterase 2+ H (Negative) Urine WBC (Auto) 10-30 H (0-5) /hpf Urine RBC (Auto) 0-4 (0-4) /hpf U Hyaline Cast (Auto) 0 (0-5) /lpf U Epithel Cells (Auto) >30 H (0-5) /lpf Urine Bacteria (Auto) Negative (Negative) Ur Renal Epithelial Cell Not Reportable Urine Yeast Not Reportable Blood Type A Positive Antibody Screen NEGATIVE Crossmatch See Detail Administered Medications Magnesium Sulfate/Dextrose (Magnesium Sulfate / D5w) 1 gm in 100 mls @ 100 mls/hr IV NOW STA Stop: 08/09/22 16:50 Last Admin: 08/09/22 16:09 Dose: 100 mls/hr Documented By: ALIS Discontinued Medications Sodium Chloride (Nss 1000ml) 500 mls @ 999 mls/hr IV .Q31M ONE Stop: 08/09/22 13:04 Last Admin: 08/09/22 16:09 Dose: 999 mls/hr Documented By: ALIS Sodium Chloride (Nss 1000ml) 500 mls @ 999 mls/hr IV .Q31M ONE Stop: 08/09/22 15:32 Last Admin: 08/09/22 16:09 Dose: 999 mls/hr Documented By: ALIS Imaging Data Radiologist's Impression: Chest X-Ray 08/09/22 12:34 XR chest 1V portable CLINICAL HISTORY: Sepsis TECHNIQUE: Single frontal radiograph of the chest was obtained. Comparison: Comparison is made to chest radiograph 12/17/2021 FINDINGS: Median sternotomy wires are unchanged. The cardiomediastinal silhouette is normal. The lungs are clear. No evidence of pleural effusion or pneumothorax. IMPRESSION: No acute abnormalities and in particular no radiographic evidence of pneumonia. ACT 112: Negative or not required by law. Electronically signed by: Bradley Reeves M.D. 08/09/2022 12:[address] 08/09/22 12:34 CT SCAN OF THE BRAIN WITHOUT IV CONTRAST CLINICAL HISTORY: Lethargy. COMPARISON STUDY: CT of the brain dated 08/20/2021. TECHNIQUE: Unenhanced axial CT scan of the brain is performed from the vertex to the skull base. A dose lowering technique was utilized adhering to the principles of ALARA. CT DOSE: 614.27 mGy.cm FINDINGS: Brain parenchyma: There is age-advanced involutional change noting advanced confluent subcortical and periventricular microangiopathic disease. There is no hemorrhage, mass effect, or evidence of acute territorial ischemia by CT criteria. A small chronic infarct is noted in the high right parietal lobe. Rose-white matter differentiation is preserved. No extra-axial fluid collection is seen. Ventricles, sulci, cisterns: Prominent secondary to involutional change. Intracranial vasculature: There is atherosclerotic calcification of the cavernous carotid and vertebral arteries. Calvarium: Unremarkable. Sinuses and mastoids: The visualized paranasal sinuses are clear. The mastoid air cells are well pneumatized. Orbits: The bony orbits are grossly intact. IMPRESSION: There is no hemorrhage, mass effect, or evidence of acute territorial ischemia by CT criteria. ACT 112: Negative or not required by law. Electronically signed by: Donny Fernando M.D. 08/09/2022 3:38 PM Discharge Plan Visit Data Chief Complaint: Lethargic Stated Complaint: LETHARGIC ED Provider: Donny Steele Discharge Problem: Hypotension, Acute dehydration, Anemia, Heme positive stool, Elevated troponin Patient Disposition: Admitted As Inpatient Condition: Serious Forms Stand Alone Forms: [facility] [employer] Prescriptions Prescriptions: No Action nitroglycerin 0.4 mg tablet, sublingual 0.4 mg sublingual DIRECTED PRN (Reason: Chest Pain) Rx Instructions: PLACE ONE TABLET UNDER THE TONGUE EVERY 5 MINUTES FOR UP TO 3 DOSES OVER 15 MINUTES IF NEEDED FOR CHEST PAIN insulin aspart U-100 [Novolog U-100 Insulin aspart] 100 unit/mL solution 10 unit subcut AC Rx Instructions: hold if BS<100 tamsulosin 0.4 mg capsule 0.4 mg PO HS carvedilol 12.5 mg tablet 12.5 mg PO BID Qty: 60 0RF Rx Instructions: TAKE THIS MEDICATION WITH FOOD insulin glargine [Lantus U-100 Insulin] 100 unit/mL solution See Rx Instructions .ROUTE .COMPLEX Qty: 10 0RF Rx Instructions: take 14 units in am before breakfast & 10 units at bedtime clopidogrel [Plavix] 75 mg tablet 75 mg PO QAM Qty: 30 0RF baclofen 5 mg tablet 5 mg PO QAM Qty: 30 0RF atorvastatin 80 mg tablet 80 mg PO QPM enoxaparin 80 mg/0.8 mL syringe 0.8 ml subcut AMHS ferrous sulfate 325 mg (65 mg iron) Tablet,Delayed Release (Dr/Ec) 325 mg PO QAM Qty: 30 0RF lisinopril 5 mg tablet 5 mg PO QAM metformin 500 mg tablet extended release 24 hr 500 mg PO AMHS Referrals Referrals: Shane Gonzalez MD [Primary Care Provider] - Hypotension Qualifiers: Hypotension type: unspecified hypotension type Qualified Code(s): I95.9 - Hypotension, unspecified Anemia Qualifiers: Anemia type: unspecified type Qualified Code(s): D64.9 - Anemia, unspecified
--- NOTE | 2022-08-09 12:51 | XRay Report ---
XR chest 1V portable CLINICAL HISTORY: Sepsis TECHNIQUE: Single frontal radiograph of the chest was obtained. Comparison: Comparison is made to chest radiograph 12/17/2021 FINDINGS: Median sternotomy wires are unchanged. The cardiomediastinal silhouette is normal. The lungs are luis alfredo r. No evidence of pleural effusion or pneumothorax. IMPRESSION: No acute abnormalities and in particular no radiographic evidence of pneumonia. ACT 112: Negative or not required by law. Electronically signed by: Bradley Reeves M.D. 08/09/2022 12:50 PM
[2022-08-09] MEDS ORDERED: SODIUM CHLORIDE 0.9% 250 ML IV PRN ×2 (15:02→15:35)
[2022-08-09 15:36] LABS: Hematocrit (blood only) 20.1 % (42.0-52.0); Hemoglobin 5.9 g/dl (14.0-18.0); Mean Corpuscular Hemoglobin 22.4 pg (25.0-34.0); Mean Corpuscular Hgb Conc 29.4 g/dL (32.0-36.0); Mean Corpuscular Volume 76.4 fL (80.0-100.0); Platelet Count 346 K/uL (130-400); RDW Coefficient of Variation 19.5 % (11.5-14.5); RDW Standard Deviation 54.3 fL (36.4-46.3); Red Blood Count 2.63 M/uL (4.70-6.10); White Blood Count 7.27 K/ul (4.8-10.8)
--- NOTE | 2022-08-09 15:39 | CT Scan Report ---
CT SCAN OF THE BRAIN WITHOUT IV CONTRAST CLINICAL HISTORY: Lethargy. COMPARISON STUDY: CT of the brain dated 08/20/2021. TECHNIQUE: Unenhanced axial CT scan of the brain is performed from the vertex to the skull base. A do se lowering technique was utilized adhering to the principles of ALARA. CT DOSE: 614.27 mGy.cm FINDINGS: Brain parenchyma: There is age-advanced involutional change noting advanced confluent subcortical and periventricular microangiopathic disease. There is no hemorrhage, mass effect, or evidence of acute territorial ischemia by CT criteria. A small chronic infarct is noted in the high right parietal lobe . Rose-white matter differentiation is preserved. No extra-axial fluid collection is seen. Ventricles, sulci, cisterns: Prominent secondary to involutional change. Intracranial vasculature: There is atherosclerotic calcification of the cavernous carotid and vertebr al arteries. Calvarium: Unremarkable. Sinuses and mastoids: The visualized paranasal sinuses are clear. The mastoid air cells are well pneu matized. Orbits: The bony orbits are grossly intact. IMPRESSION: There is no hemorrhage, mass effect, or evidence of acute territorial ischemia by CT kiera ojeda. ACT 112: Negative or not required by law. Electronically signed by: Donny Fernando M.D. 08/09/2022 3:38 PM
[2022-08-09] MEDS ORDERED: PANTOprazole 80 MG in DEXTROSE 5% 100 ML IV STA (15:43)
[2022-08-09 15:47] LABS: Alanine Aminotransferase 14 U/L (7-52); Albumin Level 2.6 gm/dl (3.4-5.0); Alkaline Phosphatase 109 U/L (34-104); Anion Gap 4 (3-11); Anisocytosis Present; Aspartate Aminotransferase 7 U/L (13-39); Basophils # (auto) 0.03 K/uL (0-0.2); Basophils % (auto) 0.4 %; Bilirubin Direct 0.1 mg/dl (0-0.2); Bilirubin,Total 0.9 mg/dl (0.2-1.0); Blood Urea Nitrogen 11 mg/dl (6-23); Calcium 7.5 mg/dl (8.5-10.1); Carbon Dioxide 26 mmol/L (21-32); Chloride 100 mmol/L (98-107); Creatine Kinase 175 U/L (30-223); Echinocytes 1+; Eosinophils # (auto) 0.04 K/uL (0-0.50); Eosinophils % (auto) 0.6 %; Est GFR (African American) 139.9 ml/min; Est GFR (Non-African American) 120.7 ml/min; Glucose 154 mg/dl (70-99(Fasting)); Immature Granulocytes # (auto) 0.02 K/uL (0.01-0.20); Immature Granulocytes % (auto) 0.3 %; Lymphocytes # (auto) 1.17 K/uL (1.2-3.4); Lymphocytes % (auto) 16.1 %; Magnesium 1.6 mg/dl (1.7-2.4); Monocytes # (auto) 0.52 K/uL (0.11-0.59); Monocytes % (auto) 7.2 %; Neutrophils # (auto) 5.49 K/uL (1.40-6.50); Neutrophils % (auto) 75.4 %; Ovalocytes 1+; Potassium 4.4 mmol/L (3.5-5.1); Sodium 130 mmol/L (136-145); Total Protein 5.5 gm/dl (6.0-8.3)
[2022-08-09] MEDS ORDERED: MAGNESIUM SULFATE / D5W 1 GM/100 ML BAG IV STA (15:51)
[2022-08-09 15:55] LABS: Troponin I High Sensitivity 1135.4 pg/ml (0-20)
[2022-08-09 15:58] LABS: INR 1.2 (0.9-1.1); Partial Thromboplastin Ratio 1.2; Partial Thromboplastin Time 33.1 Seconds (21.0-31.0)
[2022-08-09 16:20] LABS: Appearance Urine Clear (Clear); Bacteria Urine Automated Negative (Negative); Bilirubin Urine Negative (Negative); Blood Urine Negative (Negative); Cast Urine Automated 0 /lpf (0-5); Color Urine Dark Yellow; Epithelial Cell Urine Auto >30 /lpf (0-5); Glucose Urine UA Negative (Negative); Ketones Urine Negative (Negative); Leukocyte Esterase Urine 2+ (Negative); Nitrite Urine Negative (Negative); Protein Urine Negative (Negative); RBC Urine Automated 0-4 /hpf (0-4); Specific Gravity Urine 1.019 (1.000-1.030); Urobilinogen Urine Negative (Negative); pH Urine 5.5 (4.5-7.5)
[2022-08-09 17:53] LABS: Influenza A virus by PCR Negative (Neg); Influenza B virus by PCR Negative (Neg); RSV by PCR Negative (Neg); SARS CoV2 RNA(COVID-19) Ceph NEGATIVE (Negative)
--- NOTE | 2022-08-09 18:18 | History & Physical Report ---
Date of Service August 09, 2022 Assessment & Plan (1) Anemia: Plan: Admit to telemetry Patient presenting from home with reported increased lethargy. As an outpatient, patient has been noted to have a downtrending hemoglobin (11.5 --> 8.0 --> 9.1 --> 8.9 on 07/27). Patient was started on iron replacement. 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 Colonoscopy was considered however patient was felt to not likely be able to tolerate the prep. In the ED, Hgb 5.9. Patient hemodynamically stable. No obvious signs of GI bleeding at this time. Transfused 2 unit PRBC, trend H&H S/p Protonix bolus in the ED, continue IV PPI BID N.p.o. GI consult, Dr. Howell notified via Mobile text (2) Elevated troponin: (3) CAD (coronary artery disease): Plan: HS troponin 1100, no reports of chest pain EKG shows deep T wave inversions in the lateral leads, new from EKG 12/2021 however similar changes have been present on prior EKGs Likely due to demand ischemia in the setting of profound anemia Continue to trend troponin, check resting echo Continue beta-josé and statin, hold clopidogrel due to profound anem ia/possible acute bleeding. ASA discontinued previously due to ongoing anemia. Cardiology consult, Dr. Pan notified by ED provider (4) Type 2 diabetes mellitus: Plan: Hgb A1c 5.2 06/2022 Will hold Lantus due to recently reported hypoglycemia and n.p.o. status NovoLog per protocol (5) History of CVA (cerebrovascular accident): Plan: History of recurrent CVA despite DAPT and anticoagulation therapy Chronic right hemiplegia/left arm paralysis/mostly nonverbal/expressive aphasia Holding Plavix and Lovenox as above (6) H/O deep venous thrombosis: Plan: History of breakthrough DVT while on warfarin and Eliquis therapy, now on therapeutic dose Lovenox --holding as above (7) HTN (hypertension): Plan: Due to borderline low BP, will hold lisinopril (8) DVT prophylaxis: Plan: SCDs while holding Lovenox I spent a total of 90 minutes coordinating, documenting, and providing care for this patient excluding time spent in the performance of separately billed services. This included personally reviewing all current laboratories and im aging studies, medication reconciliation, outpatient chart review, and discussion with specialists. Admission and Anticipated Discharge Date Admission Date: delayed entry date of service noted above Attending Addendum: care coordinated with NENITA Aceves please refer to her notes for full details, I agree with her notes patient seen and examined, records reviewed by myself as well ASSESSMENT AND PLAN diagnoses and plan of care as per NENITA Aceves's notes Rigo Roa MD History of Present Illness Chief Complaint: Lethargy Primary Care Provider: Shane Gonzalez MD 62-year-old male with PMH CAD, recurrent CVA while receiving ASA and clopidogrel prompting initiation of warfarin, breakthrough DVT on warfarin and Eliquis currently anticoagulated with therapeutic dose Lovenox, carotid artery disease, DM type II, dyslipidemia, borderline severe aortic valve stenosis, bedbound status, and other problems listed below who presents to the ED for evaluation of lethargy. History obtained from patient's due to patient's mostly nonverbal status and review of inpatient records as well as outpatient review of PCP and cardiology notes. states that on Tuesday she noted her to be more lethargic than normal. She checked his blood sugar and found it to be in the 50s. She called EMS. While waiting for EMS to arrive, she gave the patient some icing and reports improvement in blood sugar. Patient was not brought to the ED. Today, patient again appeared to be lethargic. Per recommendations of PCP, he was referred to the ED for further evaluation. As an outpatient, patient has been having a downtrending hemoglobin with low iron levels. Patient started on iron replacement. Fecal occult blood testing as an outpatient was negative. denies noticing any bright red bleeding per rectum or dark tarry stools. No reported vomiting. Stools are chronically soft however no diarrhea. notes no changes in urinary habits. No fever. In the ED, Hgb is 5.9, troponin 1100. EKG is abnormal showing deep T wave inversion in the lateral leads however similar in appearance to EKG from 08/2021. Patient was given IVF, Protonix bolus, magnesium replacement, and typed and crossed for 2 units of blood. Allergies Allergy/AdvReac Type Severity Reaction Status Date / Time No Known Allergies Allergy Verified 08/09/22 15:58 Home Medications Medication Instructions Recorded Confirmed Type nitroglycerin 0.4 mg sublingual 0.4 mg sublingual DIRECTED PRN 08/09/19 08/09/22 History tablet Chest Pain baclofen 5 mg tablet 5 mg PO QAM #30 tabs 09/22/20 08/09/22 Rx carvedilol 12.5 mg tablet 12.5 mg PO BID #60 tabs 09/22/20 08/09/22 Rx clopidogrel 75 mg tablet (Plavix) 75 mg PO QAM #30 tabs 09/22/20 08/09/22 Rx insulin glargine 100 unit/mL See Rx Instructions .Route 09/22/20 08/09/22 Rx subcutaneous solution (Lantus .COMPLEX #10 mL U-100 Insulin) insulin aspart U-100 100 unit/mL 10 unit subcut AC 01/11/21 08/09/22 History subcutaneous solution (Novolog U-100 Insulin aspart) tamsulosin 0.4 mg capsule 0.4 mg PO HS 01/11/21 08/09/22 History atorvastatin 80 mg tablet 80 mg PO QPM 05/17/21 08/09/22 History ferrous sulfate 325 mg (65 mg 325 mg PO QAM #30 tabs 01/15/22 08/09/22 Rx iron) tablet,delayed release enoxaparin 120 mg/0.8 mL 120 mg subcut BID 08/09/22 08/09/22 History subcutaneous syringe lisinopril 5 mg tablet 5 mg PO QAM 08/09/22 08/09/22 History Past Med/Surg History Medical History Aortic valve stenosis BPH with obstruction/lower urinary tract symptoms CAD (coronary artery disease) 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 in the setting of diabetes for which patient initially underwent off pump 3 vessel coronary artery bypass grafting in 2006 with DUARTE to LAD, SVG to circumflex and SVG to PDA Bare metal stent to protected left main coronary artery 08/13/2015 PCI drug-eluting stent to the saphenous vein graft to RPDA 04/17/2014 PCI, drug-eluting stent to the ostial portion of the SVG to RCA 12/04/2014 for severe in stent restenosis Carotid stenosis Diabetic peripheral neuropathy associated with type 2 diabetes mellitus Dyslipidemia H/O deep venous thrombosis Hemiplegia affecting right dominant side History of CVA (cerebrovascular accident) History of pancreatitis HTN (hypertension) Hypomagnesemia Monoplegia affecting right dominant side Obesity Osteomyelitis of great toe of right foot Proliferative diabetic retinopathy Retinal edema Right foot drop Status post administration of all doses of COVID-19 vaccine series Status post cerebrovascular accident Status post myocardial infarction Superior mesenteric artery stenosis Type 2 diabetes mellitus Surgical History Hx of vitrectomy S/P angioplasty with stent S/P CABG x 3 S/P PTCA (percutaneous transluminal coronary angioplasty) Family History Father Heart disease Social History Smoking Status: Former smoker Tobacco Type: Cigarettes Second Hand Exposure: No; Do You Dip or Chew Tobacco: No; Tobacco Cessation Education Requested by Patient: No Hx Alcohol Use: No Hx Substance Use: No Preferred Language: Slovenian Communication Ability: Impaired Visual Impairment: No Limitations Hearing Ability: Normal Statistical Typist Required: No Beliefs That Will Affect Care: None marital status: Current Living Situation: Spouse Current Living Situation Comment: Lives with in a split level home but he is in basement current occupational status: disabled Other Information That Helps Us Care for You: No Feels Safe at Home: Yes Safety Concerns: Feels Safe At This Time Assistive Devices: Hospital Bed Review of Systems 2 Review of Systems: Other (Unobtainable due to mostly nonverbal status) Physical Exam Constitutional: WD/WN, vitals as above no acute distress Eyes: PERRL, conjunctivae normal, anicteric sclerae ENMT: external ear and nose normal, oropharynx normal Respiratory: normal respiratory effort, lungs clear to auscultation Cardiovascular: Rate/Rhythm: regular rate and regular rhythm Vessels: normal peripheral pulses Extremities: no edema Gastrointestinal (Abdomen): normal bowel sounds, soft, nontender, no hepatosplenomegaly Skin: no rashes, warm and dry Neurologic: Speech / Cognition: + abnormal speech (Mostly nonverbal) and + expressive aphasia Right-sided and left arm paralysis due to previous CVAs Psychiatric: Orientation: alert and oriented to person Results & Data Results & Data ([facility]) Vital Signs (Past 12 Hours) Vital Signs Temp Pulse Resp BP Pulse Ox O2 Del Method 03/06/23 18:05 84 22 99/56 L 99 08/09/22 17:50 86 20 89/52 L 99 08/09/22 17:51 87 23 89/52 L 99 08/09/22 17:45 86 20 91/54 L 99 08/09/22 17:15 90 23 106/52 L 100 08/09/22 16:23 93 H 08/09/22 17:00 90 18 78/52 L 99 08/09/22 16:45 93 H 21 85/56 L 99 08/09/22 17:32 87 22 107/56 L 100 08/09/22 17:35 88 22 107/56 L 99 08/09/22 16:45 37.0 C 89 14 106/52 L 100 08/09/22 16:42 36.4 C L 94 H 14 83/51 L 100 08/09/22 16:29 36.8 C 95 H 14 81/52 L 100 08/09/22 15:06 131/54 L 08/09/22 15:06 93 H 30 H 100 08/09/22 15:00 89 23 08/09/22 14:30 85 25 H 08/09/22 14:00 82 27 H 08/09/22 13:30 85 27 H 08/09/22 13:00 81 28 H 08/09/22 12:30 79 25 H 77 L 08/09/22 12:30 87/58 L 08/09/22 12:18 82 27 H 93 08/09/22 12:18 92/57 L 08/09/22 12:34 Room Air 08/09/22 12:20 82 08/09/22 12:02 36.8 C 80 17 86/46 L 100 Room Air Laboratory Results Short CBC 08/09/22 Range/Units 15:05 WBC 7.27 (4.8-10.8) K/ul Hgb 5.9 L* (14.0-18.0) g/dl Hct 20.1 L* (42.0-52.0) % Plt Count 346 (130-400) K/uL BMP 08/09/22 15:05 Sodium 130 L Potassium 4.4 Chloride 100 Carbon Dioxide 26 BUN 11 Creatinine 0.44 L Glucose 154 H Calcium 7.5 L Cardiac Enzymes 08/09/22 Range/Units 15:05 Total Creatine Kinase 175 (30-223) U/L Liver Function 08/09/22 Range/Units 15:05 Total Bilirubin 0.9 (0.2-1.0) mg/dl Direct Bilirubin 0.1 (0-0.2) mg/dl AST 7 L (13-39) U/L ALT 14 (7-52) U/L Alkaline Phosphatase 109 H (34-104) U/L Albumin 2.6 L (3.4-5.0) gm/dl Urine 08/09/22 Range/Units 15:50 Urine Color Dark Yellow Urine Appearance Clear (Clear) Urine pH 5.5 (4.5-7.5) Ur Specific [place] 1.019 (1.000-1.030) Urine Protein Negative (Negative) Urine Glucose (UA) Negative (Negative) Diagnostic Findings Chest X-Ray 08/09/22 12:34 XR chest 1V portable CLINICAL HISTORY: Sepsis TECHNIQUE: Single frontal radiograph of the chest was obtained. Comparison: Comparison is made to chest radiograph 12/17/2021 FINDINGS: Median sternotomy wires are unchanged. The cardiomediastinal silhouette is normal. The lungs are clear. No evidence of pleural effusion or pneumothorax. IMPRESSION: No acute abnormalities and in particular no radiographic evidence of pneumonia. ACT 112: Negative or not required by law. Electronically signed by: Bradley Reeves M.D. 08/09/2022 12:[address] 08/09/22 12:34 CT SCAN OF THE BRAIN WITHOUT IV CONTRAST CLINICAL HISTORY: Lethargy. COMPARISON STUDY: CT of the brain dated 08/20/2021. TECHNIQUE: Unenhanced axial CT scan of the brain is performed from the vertex to the skull base. A dose lowering technique was utilized adhering to the principles of ALARA. CT DOSE: 614.27 mGy.cm FINDINGS: Brain parenchyma: There is age-advanced involutional change noting advanced confluent subcortical and periventricular microangiopathic disease. There is no hemorrhage, mass effect, or evidence of acute territorial ischemia by CT criter ia. A small chronic infarct is noted in the high right parietal lobe. Rose-white matter differentiation is preserved. No extra-axial fluid collection is seen. Ventricles, sulci, cisterns: Prominent secondary to involutional change. Intracranial vasculature: There is atherosclerotic calcification of the cavernous carotid and vertebral arteries. Calvarium: Unremarkable. Sinuses and mastoids: The visualized paranasal sinuses are clear. The mastoid air cells are well pneumatized. Orbits: The bony orbits are grossly intact. IMPRESSION: There is no hemorrhage, mass effect, or evidence of acute territorial ischemia by CT criteria. ACT 112: Negative or not required by law. Electronically signed by: Donny Fernando M.D. 08/09/2022 3:38 PM Code Status & VTE Plan Code Status Patient is a full code as per my discussion with patient's who is at the bedside. VTE Prophylaxis Plan VTE Prophylaxis will be ordered: No (1) Anemia Anemia type: unspecified type Qualified Code(s): D64.9 - Anemia, unspecified
[2022-08-09] MEDS ORDERED: CARBOHYDRATES FOR HYPOGLYCEMIA PO PRN (20:06)
[2022-08-09] MEDS ORDERED: DEXTROSE 50% 50 ML SYRINGE IV PRN (20:06)
[2022-08-09] MEDS ORDERED: GLUCAGON FOR INJ 1 MG VIAL SQ PRN (20:06)
[2022-08-09] MEDS ORDERED: GLUCOSE 10 TAB/TUBE PO PRN (20:06)
[2022-08-09] MEDS ORDERED: GLUCOSE 40% GEL 15 GM TUBE PO PRN (20:06)
[2022-08-09] MEDS: INSULIN ASPART PER UNIT CHARGE SC SCH (20:39)
[2022-08-09] MEDS: carvediloL 12.5 MG TAB PO SCH (20:43)
[2022-08-09] MEDS: PANTOprazole 40 MG in SYRINGE 0 ML IV SCH (20:44)
[2022-08-09] MEDS: ATORVASTATIN 40 MG TAB PO SCH (21:44)
[2022-08-09] MEDS: TAMSULOSIN HCL 0.4 MG CAP PO SCH (21:44)
[2022-08-10 00:11] LABS: Hematocrit (blood only) 20.5 % (42.0-52.0); Hemoglobin 5.9 g/dl (14.0-18.0)
[2022-08-10] MEDS ORDERED: SODIUM CHLORIDE 0.9% 250 ML IV PRN (00:20)
[2022-08-10] MEDS ORDERED: ACETAMINOPHEN 500 MG TAB PO STA (00:20)
--- NOTE | 2022-08-10 02:29 | CT Scan Report ---
Exam(s): CT ABDOMEN + PELVIS Without Contrast EXAM: CT Abdomen and Pelvis Without Intravenous Contrast CLINICAL HISTORY: Reason for exam: anemia. any bleeding?. TECHNIQUE: Axial computed tomography images of the abdomen and pelvis without intravenous contrast. CTDI is 16.7 mGy and DLP is 945.35 mGy-cm. Automated exposure control was utilized for the study. A dose lowering technique was utilized adhering to the principles of ALARA. COMPARISON: CT Abdomen Pelvis dated 03/18/2020 FINDINGS: Artifacts: Artifact in the upper abdomen from patient's arms. Lung bases: See below. Pleural space: Small bilateral pleural effusions greater on the left. Mild bibasilar atelectasis. Heart: Marked coronary artery calcifications. ABDOMEN: Liver: Unremarkable. Gallbladder and bile ducts: Unremarkable. No calcified stones. No ductal dilation. Pancreas: Unremarkable. No ductal dilation. Spleen: Unremarkable. No splenomegaly. Adrenals: Nodular adrenal glands, similar to the prior. Kidneys and ureters: Left renal low-density lesion better seen on the prior. No obstructing stones. No hydronephrosis. Stomach and bowel: Large amount of stool within distended rectum. No mucosal thickening. No bowel obstruction. PELVIS: Appendix: No findings to suggest acute appendicitis. Bladder: Bladder wall thickening of partially distended bladder. No stones. Reproductive: Unremarkable as visualized. ABDOMEN and PELVIS: Intraperitoneal space: See above. Bones/joints: Median sternotomy wires. Minimal sclerosis of the left inferior pubic ramus, new since the prior. Soft tissues: Enlarged right abductor musculature which appears hyperdense. Partially visualized on the inferior most images. Approximately 5 cm in transverse dimension. Dystrophic soft tissue calcifications/heterotopic ossification bilaterally in the musculature between the inferior pubic rami and proximal femurs. Chronic appearance although new since the prior study. Partially visualized. Anasarca. Soft tissue calcifications noted in the left forearm soft tissues, partially visualized. Vasculature: Marked diffuse atherosclerotic calcifications. Lymph nodes: Unremarkable. No enlarged lymph nodes. Tubes, lines and devices: Right this catheter with the tip in the right common iliac vein. IMPRESSION: 1. Enlarged right abductor musculature which appears hyperdense. Partially visualized on the inferior most images. Likely represents hematoma, approximately 5 cm in transverse dimension. Active bleeding or underlying lesion not excluded. 2. Large amount of stool within distended rectum. 3. Bladder wall thickening of partially distended bladder. May reflect cystitis or chronic bladder obstruction. 4. Dystrophic soft tissue calcifications/heterotopic ossification bilaterally in the musculature between the inferior pubic rami and proximal femurs. Chronic appearance although new since the prior study. Partially visualized. 5. Minimal sclerosis of the left inferior pubic ramus, new since the prior. Nonspecific. Correlate for infectious/inflammatory or neoplastic process. 6. Anasarca. 7. Small bilateral pleural effusions greater on the left. Mild bibasilar atelectasis. Communications: Verify Receipt Call Doctor Above results Electronically signed by: Thiago Wheeler M.D. 08/10/22 02:28 AM
[2022-08-10] MEDS ORDERED: FUROSEMIDE INJ 20 MG/2 ML VIAL IV ONE (03:00)
[2022-08-10] MEDS ORDERED: OPTIRAY 320 500ml IV ONE (03:13)
--- NOTE | 2022-08-10 05:23 | Surgery Consultation ---
Date of Consultation August 10, 2022 Assessment & Plan (1) Hematoma of right thigh: pt is a 62 year-=old male who was admitted to hospital for right thigh hematoma drip H/H, HCT 5.9 IMP; right thigh hematoma, Plan, base on significant co-morbilities , recommend to transfer higher level care, [facility] or . D/W Dr. Torres. blood transfusion. monitor H/H. History of Present Illness Reason for Consultation: abdominal wall hematoma Requesting Physician: Melissa Cortes MD Attending Physician: Rigo Roa MD History of Present Illness History of Present Illness Chief Complaint: Lethargy Primary Care Provider: Shane Gonzalez MD 62-year-old male with PMH CAD, recurrent CVA while receiving ASA and clopidogrel prompting initiation of warfarin, breakthrough DVT on warfarin and Eliquis currently anticoagulated with therapeutic dose Lovenox, carotid artery disease, DM type II, dyslipidemia, borderline severe aortic valve stenosis, bedbound status, and other problems listed below who presents to the ED for evaluation of lethargy. History obtained from patient's due to patient's mostly nonverbal status and review of inpatient records as well as outpatient review of PCP and cardiology notes. states that on Tuesday she noted her to be more lethargic than normal. She checked his blood sugar and found it to be in the 50s. She called EMS. While waiting for EMS to arrive, she gave the patient some icing and reports improvement in blood sugar. Patient was not brought to the ED. Today, patient again appeared to be lethargic. Per recommendations of PCP, he was referred to the ED for further evaluation. As an outpatient, patient has been having a downtrending hemoglobin with low iron levels. Patient started on iron replacement. Fecal occult blood testing as an outpatient was negative. denies noticing any bright red bleeding per rectum or dark tarry stools. No reported vomiting. Stools are chronically soft however no diarrhea. notes no changes in urinary habits. No fever. In the ED, Hgb is 5.9, troponin 1100. EKG is abnormal showing deep T wave inversion in the lateral leads however similar in appearance to EKG from 08/2021. Patient was given IVF, Protonix bolus, magnesium replacement, and typed and crossed for 2 units of blood. I ( Mk Chowdhury MD ) got a call for consult right thigh hematoma, I reviewed pt's H/P, labs, CT scan with DR. Torres and nurse at bedside. Allergies Allergy/AdvReac Type Severity Reaction Status Date / Time No Known Allergies Allergy Verified 08/09/22 15:58 Home Medications Medication Instructions Recorded Confirmed Type nitroglycerin 0.4 mg sublingual 0.4 mg sublingual DIRECTED PRN 08/09/19 08/09/22 History tablet Chest Pain baclofen 5 mg tablet 5 mg PO QAM #30 tabs 09/22/20 08/09/22 Rx carvedilol 12.5 mg tablet 12.5 mg PO BID #60 tabs 09/22/20 08/09/22 Rx clopidogrel 75 mg tablet (Plavix) 75 mg PO QAM #30 tabs 09/22/20 08/09/22 Rx insulin glargine 100 unit/mL See Rx Instructions .Route 09/22/20 08/09/22 Rx subcutaneous solution (Lantus .COMPLEX #10 mL U-100 Insulin) insulin aspart U-100 100 unit/mL 10 unit subcut AC 01/11/21 08/09/22 History subcutaneous solution (Novolog U-100 Insulin aspart) tamsulosin 0.4 mg capsule 0.4 mg PO HS 01/11/21 08/09/22 History atorvastatin 80 mg tablet 80 mg PO QPM 05/17/21 08/09/22 History ferrous sulfate 325 mg (65 mg 325 mg PO QAM #30 tabs 01/15/22 08/09/22 Rx iron) tablet,delayed release enoxaparin 120 mg/0.8 mLF 120 mg subcut BID 08/09/22 08/09/22 History subcutaneous syringe lisinopril 5 mg tablet 5 mg PO QAM 08/09/22 08/09/22 History Past Med/Surg History Medical History(Updated 08/09/22 @ 18:44 by NENITA Butterfield) Aortic valve stenosis BPH with obstruction/lower urinary tract symptoms CAD (coronary artery disease) 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 in the setting of diabetes for which patient initially underwent off pump 3 vessel coronary artery bypass grafting in 2006 with DUARTE to LAD, SVG to circumflex and SVG to PDA Bare metal stent to protected left main coronary artery 08/13/2015 PCI drug-eluting stent to the saphenous vein graft to RPDA 04/17/2014 PCI, drug-eluting stent to the ostial portion of the SVG to RCA 12/04/2014 for severe in stent restenosisCarotid stenosis Diabetic peripheral neuropathy associated with type 2 diabetes mellitus Dyslipidemia H/O deep venous thrombosis Hemiplegia affecting right dominant side History of CVA (cerebrovascular accident) History of pancreatitis HTN (hypertension) Hypomagnesemia Monoplegia affecting right dominant side Obesity Osteomyelitis of great toe of right foot Proliferative diabetic retinopathy Retinal edema Right foot drop Status post administration of all doses of COVID-19 vaccine series Status post cerebrovascular accident Status post myocardial infarction Superior mesenteric artery stenosis Type 2 diabetes mellitus Surgical History Hx of vitrectomy S/P angioplasty with stent S/P CABG x 3 S/P PTCA (percutaneous transluminal coronary angioplasty) Family History Father Heart disease Social History Smoking Status: Former smoker Tobacco Type: Cigarettes Second Hand Exposure: No; Hx Alcohol Use: No Hx Substance Use: No Preferred Language: Iranian Communication Ability: Impaired Visual Impairment: No Limitations Hearing Ability: Normal Pipe Stripper Required: No Beliefs That Will Affect Care: None marital status: Current Living Situation: Spouse Current Living Situation Comment: Lives with in a split level home but he is in basement current occupational status: disabled Feels Safe at Home: Yes Assistive Devices: Wheelchair Review of Systems Review of Systems: Other (Unobtainable due to mostly nonverbal status) Allergies Allergy/AdvReac Type Severity Reaction Status Date / Time No Known Allergies Allergy Verified 08/09/22 15:58 Home Medications Medication Instructions Recorded Confirmed Type nitroglycerin 0.4 mg sublingual 0.4 mg sublingual DIRECTED PRN 08/09/19 08/09/22 History tablet Chest Pain baclofen 5 mg tablet 5 mg PO QAM #30 tabs 09/22/20 08/09/22 Rx carvedilol 12.5 mg tablet 12.5 mg PO BID #60 tabs 09/22/20 08/09/22 Rx clopidogrel 75 mg tablet (Plavix) 75 mg PO QAM #30 tabs 09/22/20 08/09/22 Rx insulin glargine 100 unit/mL See Rx Instructions .Route 09/22/20 08/09/22 Rx subcutaneous solution (Lantus .COMPLEX #10 mL U-100 Insulin) insulin aspart U-100 100 unit/mL 10 unit subcut AC 01/11/21 08/09/22 History subcutaneous solution (Novolog U-100 Insulin aspart) tamsulosin 0.4 mg capsule 0.4 mg PO HS 01/11/21 08/09/22 History atorvastatin 80 mg tablet 80 mg PO QPM 05/17/21 08/09/22 History ferrous sulfate 325 mg (65 mg 325 mg PO QAM #30 tabs 01/15/22 08/09/22 Rx iron) tablet,delayed release enoxaparin 120 mg/0.8 mL 120 mg subcut BID 08/09/22 08/09/22 History subcutaneous syringe lisinopril 5 mg tablet 5 mg PO QAM 08/09/22 08/09/22 History Patient History Medical History (Updated 08/10/22 @ 05:39 by Mk Chowdhury MD) Aortic valve stenosis BPH with obstruction/lower urinary tract symptoms CAD (coronary artery disease) 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 in the setting of diabetes for which patient initially underwent off pump 3 vessel coronary artery bypass grafting in 2006 with DUARTE to LAD, SVG to circumflex and SVG to PDA Bare metal stent to protected left main coronary artery 08/13/2015 PCI drug-eluting stent to the saphenous vein graft to RPDA 04/17/2014 PCI, drug-eluting stent to the ostial portion of the SVG to RCA 12/04/2014 for severe in stent restenosis Carotid stenosis Diabetic peripheral neuropathy associated with type 2 diabetes mellitus Dyslipidemia H/O deep venous thrombosis Hemiplegia affecting right dominant side History of CVA (cerebrovascular accident) History of pancreatitis HTN (hypertension) Hypomagnesemia Monoplegia affecting right dominant side Obesity Osteomyelitis of great toe of right foot Proliferative diabetic retinopathy Retinal edema Right foot drop Status post administration of all doses of COVID-19 vaccine series Status post cerebrovascular accident Status post myocardial infarction Superior mesenteric artery stenosis Type 2 diabetes mellitus Surgical History Hx of vitrectomy S/P angioplasty with stent S/P CABG x 3 S/P PTCA (percutaneous transluminal coronary angioplasty) Family History Father Heart disease Social History Smoking Status: Former smoker Tobacco Type: Cigarettes Second Hand Exposure: No; Do You Dip or Chew Tobacco: No; Tobacco Cessation Education Requested by Patient: No Hx Alcohol Use: No Hx Substance Use: No Preferred Language: Iranian Communication Ability: Impaired Visual Impairment: No Limitations Hearing Ability: Normal Pipe Stripper Required: No Beliefs That Will Affect Care: None marital status: Current Living Situation: Spouse Current Living Situation Comment: Lives with in a split level home but he is in basement current occupational status: disabled Other Information That Helps Us Care for You: No Feels Safe at Home: Yes Safety Concerns: Feels Safe At This Time Assistive Devices: None Physical Exam Constitutional: sleepy Neck: trachea midline, no thyromegaly Respiratory: normal respiratory effort, lungs clear to auscultation Cardiovascular: Rate/Rhythm: + irregularly irregular Gastrointestinal (Abdomen): soft, no distend, BS +, Results & Data ([facility]) Vital Signs (Past 12 Hours) Vital Signs Temp Pulse Pulse Resp BP BP Pulse Ox 08/10/22 04:31 36.5 C 75 18 99 08/10/22 03:28 36.6 C 82 16 94/58 L 99 08/10/22 03:17 36.7 C 86 18 98/63 L 100 08/10/22 04:30 36.5 C 78 20 98/61 L 99 08/10/22 04:01 36.8 C 80 20 96/60 L 98 08/10/22 03:46 36.7 C 82 24 100/63 99 08/10/22 02:15 37.5 C 85 24 99/61 L 99 08/10/22 01:45 37.1 C 87 24 99/62 L 98 08/10/22 01:31 76 08/10/22 01:30 36.7 C 87 18 99/63 L 99 08/10/22 01:11 37.4 C 82 16 100/64 99 08/09/22 20:00 80 08/09/22 23:05 36.9 C 78 18 97/61 L 98 08/09/22 20:10 37.0 C 85 18 110/67 100 08/09/22 20:05 37.0 C 84 18 110/67 100 08/09/22 19:28 36.4 C L 86 18 96/61 L 99 08/09/22 19:28 36.4 C L 86 18 96/61 L 99 08/09/22 18:45 86 18 110/52 L 99 08/09/22 18:35 86 20 110/49 L 99 08/09/22 18:15 83 20 102/53 L 99 08/09/22 18:05 84 22 99/56 L 99 08/09/22 17:50 86 20 89/52 L 99 08/09/22 17:51 87 23 89/52 L 99 08/09/22 17:45 86 20 91/54 L 99 08/09/22 17:32 87 22 107/56 L 100 08/09/22 17:35 88 22 107/56 L 99 O2 Del Method O2 Flow Rate 08/10/22 04:31 1 08/10/22 03:28 1 08/10/22 03:17 1 08/10/22 04:30 1 08/10/22 04:01 1 08/10/22 03:46 1 08/10/22 02:15 1 08/10/22 01:45 1 08/10/22 01:31 08/10/22 01:30 1 08/10/22 01:11 1 08/09/22 20:00 08/09/22 23:05 Room Air 08/09/22 20:10 1 08/09/22 20:05 1 08/09/22 19:28 Room Air 08/09/22 19:28 08/09/22 18:45 08/09/22 18:35 08/09/22 18:15 08/09/22 18:05 08/09/22 17:50 08/09/22 17:51 08/09/22 17:45 08/09/22 17:32 08/09/22 17:35 Laboratory Results Abnormal lab results 08/09/22 08/09/22 08/09/22 Range/Units 15:05 15:05 15:05 RBC 2.63 L (4.70-6.10) M/uL Hgb 5.9 L* (14.0-18.0) g/dl Hct 20.1 L* (42.0-52.0) % MCV 76.4 L (80.0-100.0) fL MCH 22.4 L (25.0-34.0) pg MCHC 29.4 L (32.0-36.0) g/dL RDW Std Deviation 54.3 H (36.4-46.3) fL RDW Coeff of Caroline 19.5 H (11.5-14.5) % Lymph # (Auto) 1.17 L (1.2-3.4) K/uL PT 13.0 H (9.0-12.0) Seconds INR 1.2 H (0.9-1.1) APTT 33.1 H (21.0-31.0) Seconds Sodium 130 L (136-145) mmol/L Creatinine 0.44 L (0.6-1.4) mg/dl BUN/Creatinine Ratio 25.0 H (10-20) Glucose 154 H (70-99(Fasting)) mg/dl POC Glucose (70-99) mg/dl Calcium 7.5 L (8.5-10.1) mg/dl Magnesium 1.6 L (1.7-2.4) mg/dl AST 7 L (13-39) U/L Alkaline Phosphatase 109 H (34-104) U/L Troponin I High Sens 1135.4 H* (0-20) pg/ml Total Protein 5.5 L (6.0-8.3) gm/dl Albumin 2.6 L (3.4-5.0) gm/dl Ur Leukocyte Esterase (Negative) Urine WBC (Auto) (0-5) /hpf U Epithel Cells (Auto) (0-5) /lpf Crossmatch 08/09/22 08/09/22 08/09/22 Range/Units 15:09 15:50 20:14 RBC (4.70-6.10) M/uL Hgb (14.0-18.0) g/dl Hct (42.0-52.0) % MCV (80.0-100.0) fL MCH (25.0-34.0) pg MCHC (32.0-36.0) g/dL RDW Std Deviation (36.4-46.3) fL RDW Coeff of Caroline (11.5-14.5) % Lymph # (Auto) (1.2-3.4) K/uL PT (9.0-12.0) Seconds INR (0.9-1.1) APTT (21.0-31.0) Seconds Sodium (136-145) mmol/L Creatinine (0.6-1.4) mg/dl BUN/Creatinine Ratio (10-20) Glucose (70-99(Fasting)) mg/dl POC Glucose 154 H (70-99) mg/dl Calcium (8.5-10.1) mg/dl Magnesium (1.7-2.4) mg/dl AST (13-39) U/L Alkaline Phosphatase (34-104) U/L Troponin I High Sens (0-20) pg/ml Total Protein (6.0-8.3) gm/dl Albumin (3.4-5.0) gm/dl Ur Leukocyte Esterase 2+ H (Negative) Urine WBC (Auto) 10-30 H (0-5) /hpf U Epithel Cells (Auto) >30 H (0-5) /lpf Crossmatch See Detail 08/09/22 08/09/22 Range/Units 20:59 23:00 RBC (4.70-6.10) M/uL Hgb 5.9 L* (14.0-18.0) g/dl Hct 20.5 L* (42.0-52.0) % MCV (80.0-100.0) fL MCH (25.0-34.0) pg MCHC (32.0-36.0) g/dL RDW Std Deviation (36.4-46.3) fL RDW Coeff of Caroline (11.5-14.5) % Lymph # (Auto) (1.2-3.4) K/uL PT (9.0-12.0) Seconds INR (0.9-1.1) APTT (21.0-31.0) Seconds Sodium (136-145) mmol/L Creatinine (0.6-1.4) mg/dl BUN/Creatinine Ratio (10-20) Glucose (70-99(Fasting)) mg/dl POC Glucose (70-99) mg/dl Calcium (8.5-10.1) mg/dl Magnesium (1.7-2.4) mg/dl AST (13-39) U/L Alkaline Phosphatase (34-104) U/L Troponin I High Sens 1317.6 H* (0-20) pg/ml Total Protein (6.0-8.3) gm/dl Albumin (3.4-5.0) gm/dl Ur Leukocyte Esterase (Negative) Urine WBC (Auto) (0-5) /hpf U Epithel Cells (Auto) (0-5) /lpf Crossmatch Diagnostic Findings Exam(s): CTA EXTREMITY RIGHT LOWER W/WO Contrast IV Amt: 105 ml optiray 320 EXAM: CT Angiography of the Right Lower Extremity With Intravenous Contrast CLINICAL HISTORY: Reason for exam: right thigh hematoma. active bleeding?. TECHNIQUE: Axial computed tomographic angiography images of the right lower extremity with intravenous contrast. CTDI is 49.29 mGy and DLP is 1250.2 mGy-cm. Automated exposure control was utilized for the study. A dose lowering technique was utilized adhering to the principles of ALARA. MIP reconstructed images were created and reviewed. CONTRAST: Patient received 105 ml optiray 320 of IV contrast COMPARISON: None. FINDINGS: VASCULATURE: Aorta: Severe calcified atherosclerotic disease tibioperoneal trunk. There is calcified atherosclerotic disease of aorta with no aneurysm. Right iliac arteries: Mild calcified atherosclerotic disease throughout the right external iliac artery with no significant stenosis. Right femoral/popliteal arteries: Scattered calcified atherosclerotic disease throughout the right superficial femoral artery, more severe distally. Cannot exclude areas of moderate to high-grade stenosis involving the distal superficial femoral artery. Severe atherosclerotic disease of the popliteal artery with areas of moderate to high-grade stenosis. Right calf/foot arteries: Severe disease through the right anterior tibial artery with multiple areas of high-grade stenosis in a short segment occlusions. Severe disease through the posterior tibial artery with multiple areas of high-grade stenosis and short segment occlusion. Distal reconstitution at the ankle noted. Moderate disease through the peroneal artery seen as a continuous vessel to the ankle. LOWER EXTREMITY: Bones/joints: There is a right-sided femoral line in place. Soft tissues: There is a large hematoma involving the medial aspect of the upper thigh measuring approximately 5.5 x 6.5 cm in axial dimension. Questionable heterogeneous density surrounding the right femur are concerning for second hematoma and measuring 5.7 x 5.5 cm in axial dimension. There is no evidence of active bleed. Bladder: Intrapelvic structures revealed borderline thickening of urinary bladder wall, cannot exclude cystitis. IMPRESSION: 1. Hematoma involving the medial and upper aspect of the right thigh and surrounding the mid cephalad femur. No evidence of active bleed. 2. Severe atherosclerotic disease involving the right lower extremity more significant through the distal superficial femoral and popliteal artery with areas of high-grade stenosis distally. 3. Severe disease through the trifurcation vessels with single vessel runoff through the peroneal artery. Multiple areas of high-grade stenosis or occlusions with the anterior tibial artery and posterior tibial artery as described. ADDENDUM ADDENDUM: 08/10/22 02:41 Verify Receipt Verified receipt with on 08/10 02: Electronically signed by: Thiago Wheeler M.D. Electronically signed by: Thiago Wheeler M.D. 08/10/22 02:28 AM ADDENDUM END ADDENDUM ADDENDUM: 08/10/22 02:41 Verify Receipt Verified receipt with on 08/10 02: Electronically signed by: Thiago Wheeler M.D. Electronically signed by: Thiago Wheeler M.D. 08/10/22 02:28 AM ADDENDUM END Exam(s): CT ABDOMEN + PELVIS Without Contrast EXAM: CT Abdomen and Pelvis Without Intravenous Contrast CLINICAL HISTORY: Reason for exam: anemia. any bleeding?. TECHNIQUE: Axial computed tomography images of the abdomen and pelvis without intravenous contrast. CTDI is 16.7 mGy and DLP is 945.35 mGy-cm. Automated exposure control was utilized for the study. A dose lowering technique was utilized adhering to the principles of ALARA. COMPARISON: CT Abdomen Pelvis dated 03/18/2020 FINDINGS: Artifacts: Artifact in the upper abdomen from patient's arms. Lung bases: See below. Pleural space: Small bilateral pleural effusions greater on the left. Mild bibasilar atelectasis. Heart: Marked coronary artery calcifications. ABDOMEN: Liver: Unremarkable. Gallbladder and bile ducts: Unremarkable. No calcified stones. No ductal dilation. Pancreas: Unremarkable. No ductal dilation. Spleen: Unremarkable. No splenomegaly. Adrenals: Nodular adrenal glands, similar to the prior. Kidneys and ureters: Left renal low-density lesion better seen on the prior. No obstructing stones. No hydronephrosis. Stomach and bowel: Large amount of stool within distended rectum. No mucosal thickening. No bowel obstruction. PELVIS: Appendix: No findings to suggest acute appendicitis. Bladder: Bladder wall thickening of partially distended bladder. No stones. Reproductive: Unremarkable as visualized. ABDOMEN and PELVIS: Intraperitoneal space: See above. Bones/joints: Median sternotomy wires. Minimal sclerosis of the left inferior pubic ramus, new since the prior. Soft tissues: Enlarged right abductor musculature which appears hyperdense. Partially visualized on the inferior most images. Approximately 5 cm in transverse dimension. Dystrophic soft tissue calcifications/heterotopic ossification bilaterally in the musculature between the inferior pubic rami and proximal femurs. Chronic appearance although new since the prior study. Partially visualized. Anasarca. Soft tissue calcifications noted in the left forearm soft tissues, partially visualized. Vasculature: Marked diffuse atherosclerotic calcifications. Lymph nodes: Unremarkable. No enlarged lymph nodes. Tubes, lines and devices: Right this catheter with the tip in the right common iliac vein. IMPRESSION: 1. Enlarged right abductor musculature which appears hyperdense. Partially visualized on the inferior most images. Likely represents hematoma, approximately 5 cm in transverse dimension. Active bleeding or underlying lesion not excluded. 2. Large amount of stool within distended rectum. 3. Bladder wall thickening of partially distended bladder. May reflect cystitis or chronic bladder obstruction. 4. Dystrophic soft tissue calcifications/heterotopic ossification bilaterally in the musculature between the inferior pubic rami and proximal femurs. Chronic appearance although new since the prior study. Partially visualized. 5. Minimal sclerosis of the left inferior pubic ramus, new since the prior. Nonspecific. Correlate for infectious/inflammatory or neoplastic process. 6. Anasarca. 7. Small bilateral pleural effusions greater on the left. Mild bibasilar atelectasis.
--- NOTE | 2022-08-10 05:31 | CT Scan Report ---
Exam(s): CTA EXTREMITY RIGHT LOWER W/WO Contrast IV Amt: 105 ml optiray 320 EXAM: CT Angiography of the Right Lower Extremity With Intravenous Contrast CLINICAL HISTORY: Reason for exam: right thigh hematoma. active bleeding?. TECHNIQUE: Axial computed tomographic angiography images of the right lower extremity with intravenous contrast. CTDI is 49.29 mGy and DLP is 1250.2 mGy-cm. Automated exposure control was utilized for the study. A dose lowering technique was utilized adhering to the principles of ALARA. MIP reconstructed images were created and reviewed. CONTRAST: Patient received 105 ml optiray 320 of IV contrast COMPARISON: None. FINDINGS: VASCULATURE: Aorta: Severe calcified atherosclerotic disease tibioperoneal trunk. There is calcified atherosclerotic disease of aorta with no aneurysm. Right iliac arteries: Mild calcified atherosclerotic disease throughout the right external iliac artery with no significant stenosis. Right femoral/popliteal arteries: Scattered calcified atherosclerotic disease throughout the right superficial femoral artery, more severe distally. Cannot exclude areas of moderate to high-grade stenosis involving the distal superficial femoral artery. Severe atherosclerotic disease of the popliteal artery with areas of moderate to high-grade stenosis. Right calf/foot arteries: Severe disease through the right anterior tibial artery with multiple areas of high-grade stenosis in a short segment occlusions. Severe disease through the posterior tibial artery with multiple areas of high-grade stenosis and short segment occlusion. Distal reconstitution at the ankle noted. Moderate disease through the peroneal artery seen as a continuous vessel to the ankle. LOWER EXTREMITY: Bones/joints: There is a right-sided femoral line in place. Soft tissues: There is a large hematoma involving the medial aspect of the upper thigh measuring approximately 5.5 x 6.5 cm in axial dimension. Questionable heterogeneous density surrounding the right femur are concerning for second hematoma and measuring 5.7 x 5.5 cm in axial dimension. There is no evidence of active bleed. Bladder: Intrapelvic structures revealed borderline thickening of urinary bladder wall, cannot exclude cystitis. IMPRESSION: 1. Hematoma involving the medial and upper aspect of the right thigh and surrounding the mid cephalad femur. No evidence of active bleed. 2. Severe atherosclerotic disease involving the right lower extremity more significant through the distal superficial femoral and popliteal artery with areas of high-grade stenosis distally. 3. Severe disease through the trifurcation vessels with single vessel runoff through the peroneal artery. Multiple areas of high-grade stenosis or occlusions with the anterior tibial artery and posterior tibial artery as described. Electronically signed by: Merline Macias MD 08/10/22 05:30 AM
--- NOTE | 2022-08-10 05:48 | Electrocardiogram Report ---
Test Reason : Blood Pressure : / mmHG Vent. Rate : 086 BPM Atrial Rate : 086 BPM P-R Int : 144 ms QRS Dur : 086 ms QT Int : 372 ms P-R-T Axes : 059 036 161 degrees QTc Int : 445 ms Normal sinus rhythm Inferior infarct (cited on or before 13-OCT-2006) Anteroseptal infarct (cited on or before 13-OCT-2006) Abnormal ECG When compared with ECG of 18-DEC-2021 06:02, Lateral ischemia is now present Confirmed by Clemente Samayoa ([id number]) on 08/10/2022 5:47:39 AM Referred By: REFERRED SELF Confirmed By:Clemente Samayoa
--- NOTE | 2022-08-10 07:33 | Communication Note ---
Date of Service: August 10, 2022 Last night Hb was still 5.9 after two units of prbc. Ordered two more units prbc.Ordered ct abd/pelvis without contrast which showed right thigh hematoma. Ordered stat cta right lower extremityAs results were pending D/W surgery. Surgery felt because of multiple co morbidites better to transfer to tertiary care. patient BP soft. Still lethargic. Opens eyes on calling but goes back to sleep. Meanwhile CTA lower extremity was showing large two hematomas in right thigh but no active bleeding. Called [facility] commercial litigation paralegal and as no active bleeding at present time was not agreeable for transfer. But were ok to call if condition changes.Will follow am labs. Notified Am providers.
[2022-08-10] MEDS: FERROUS SULFATE 325 MG TAB PO SCH (07:56)
[2022-08-10] MEDS: BACLOFEN 10 MG TAB PO SCH (07:56)
[2022-08-10] MEDS: carvediloL 12.5 MG TAB PO SCH ×2 (07:56→20:27)
[2022-08-10] MEDS: PANTOprazole 40 MG in SYRINGE 0 ML IV SCH ×2 (07:57→20:28)
[2022-08-10 08:06] LABS: BUN Creatinine Ratio 30.2 (10-20); Calcium 7.9 mg/dl (8.5-10.1); Creatinine Clr Calc Pharmacy 184.8 ml/min; Est GFR (African American) 141.2 ml/min; Est GFR (Non-African American) 121.9 ml/min; Magnesium 1.7 mg/dl (1.7-2.4); Phosphorus 3.2 mg/dl (2.5-4.9); Potassium 4.5 mmol/L (3.5-5.1)
[2022-08-10] MEDS: INSULIN ASPART PER UNIT CHARGE SC SCH ×3 (08:12→18:23)
[2022-08-10 08:14] LABS: Troponin I High Sensitivity 1008.3 pg/ml (0-20)
[2022-08-10 08:59] LABS: Basophils # (auto) 0.03 K/uL (0-0.2); Basophils % (auto) 0.4 %; Eosinophils # (auto) 0.04 K/uL (0-0.50); Eosinophils % (auto) 0.5 %; Hematocrit (blood only) 32.3 % (42.0-52.0); Hemoglobin 10.5 g/dl (14.0-18.0); Immature Granulocytes # (auto) 0.05 K/uL (0.01-0.20); Immature Granulocytes % (auto) 0.6 %; Lymphocytes # (auto) 1.12 K/uL (1.2-3.4); Lymphocytes % (auto) 14.5 %; Mean Corpuscular Hemoglobin 25.5 pg (25.0-34.0); Mean Corpuscular Hgb Conc 32.5 g/dL (32.0-36.0); Mean Corpuscular Volume 78.6 fL (80.0-100.0); Mean Platelet Volume 9.8 fL (9.4-12.4); Monocytes # (auto) 0.62 K/uL (0.11-0.59); Neutrophils # (auto) 5.86 K/uL (1.40-6.50); Platelet Count 295 K/uL (130-400); RDW Coefficient of Variation 17.8 % (11.5-14.5); RDW Standard Deviation 50.3 fL (36.4-46.3); Red Blood Count 4.11 M/uL (4.70-6.10); White Blood Count 7.72 K/ul (4.8-10.8)
[2022-08-10] MEDS: D5W AND NSS 1,000 ML IV SCH (10:05)
--- NOTE | 2022-08-10 10:16 | Cardiology Consultation ---
Date of Consultation August 10, 2022 Assessment & Plan (1) Hematoma of right thigh: (2) H/O deep venous thrombosis: (3) Anemia: (4) Elevated troponin: (5) Aortic stenosis: (6) History of CVA (cerebrovascular accident): (7) CAD (coronary artery disease): Plan Complex 62 year old male admitted with worsening lethargy. Cardiology consultation requested due to elevated troponin I levels representing demand ischemia in the setting of profound anemia (Hgb 5.9 g/dL). Patient with known diffuse aggressive premature atherosclerotic cardiovascular disease - bilateral carotid artery disease, multivessel coronary artery disease, shaggy aorta, lower extremity peripheral artery disease, multiple recurrent strokes as well as right lower extremity DVT despite therapeutic anticoagulation. Thankfully, patient has been asymptomatic in regarding to acute angina. Resting echocardiography pending, with known moderately severe aortic valve stenosis not felt to be a candidate for intervention. Recommend conservative cardiac medical management. Continue beta-josé and statin. Resume antiplatelet (Plavix) and anticoagulation (Lovenox) as soon as determined to be safe. Supervising Physician Co-Signing Physician Notes I have reviewed the advance practitioner documentation and agree. I saw and evaluated the patient on the date of service referenced in the note and have performed a medically appropriate history and or exam. Very complex patient with early and aggressive ASVD. Admitted with profound anemia. Probable source GI and a combination of chronic anticoagulation due to recurrent DVT. Agree with conservative management of the patient's heart disease at this time. History of Present Illness Reason for Consultation: Elevated troponin, abnormal EKG Requesting Physician: Yola Attending Physician: Janina History of Present Illness Mr. Deja Turner is a complex 62 year old nonverbal, bedbound male which is chronically prescribed Lovenox twice a day after failing dual antiplatelet therapy and anticoagulation with Coumadin and Eliquis. His is astutely care for by his who was present for my evaluation. Mrs. Turner notes increased lethargy and pallor starting on Tuesday, worse on Tuesday leading her to call 911. Blood sugar was in the 50s, receiving cake icing with some improvement. EMS evaluated the patient and his elected to keep him at home. Unfortunately, things got worse, noting cough and chest congestion, concern for aspiration pneumonia. The patient was brought to the hospital where he was found to be hypotensive and profoundly anemic with a hemoglobin of 5.9 g/dL. FOBT was positive in the ER. He has been given a total of 4 U PRBC's. HGB this AM was 10.5. Imaging revealed hematoma involving the medial and upper aspect of the right thigh and surrounding the mid cephalad femur with no evidence of active bleed. There was severe atherosclerotic disease involving the right lower extremity more significant through the distal superficial femoral and popliteal artery with areas of high-grade stenosis distally. There was severe disease through the trifurcation vessels with single vessel runoff through the peroneal artery, m ultiple areas of high-grade stenosis or occlusions with the anterior tibial artery and posterior tibial artery as described. High sensitivity troponin was elevated at 1,135 pg/mL then 1,317.6 pg/mL then 1,008.3 pg/mL. EKG on admission revealed normal sinus rhythm with a prior inferior infarct, old anteroseptal infarct, and new ST-T wave changes laterally when compared to the prior EKG though not significantly different when compared to other EKG's. Patient asymptomatic in regards to chest pain. Problem List: Complex early onset aggressive atherosclerotic cardiovascular disease NSTEMI involving the apical anterior LV wall. Status post off pump 3-vessel coronary bypass surgery by Dr. Bermudez on 10-17-06, receiving a DUARTE to LAD, saphenous vein graft to lateral circumflex and saphenous vein graft to posterior descending coronary arteries. Status post PCI to the SVG R PDA graft on 04/17/14 with KILEY Status post PCI to the ostial SVG to RCA graft on 12/04/14 with a DSE for severe in stent restenosis Status post PCI, protected LMCA on 08/13/15 with a bare metal stent Severe aortic valve stenosis not felt to be a candidate for intervention Severe carotid occlusive disease Cerebral vascular disease, multiple prior fenton, bilateral frontal infarctions while on dual antiplatelet therapy with aspirin and clopidogrel prompting initiation of warfarin at that time, recurrent stroke 11/2017 Right lower extremity DVT the femoral vein, diagnosed by duplex, 10/22/2021, unsuccessful breakthrough treatment despite therapeutic warfarin and Eliquis, therefore prescribed on long-term Lovenox Shaggy aorta Hypertension Dyslipdiemia. Type II diabetes mellitus with retinopathy History of great toeulcer/osteomyelitis Allergies Allergy/AdvReac Type Severity Reaction Status Date / Time No Known Allergies Allergy Verified 08/09/22 15:58 Home Medications Medication Instructions Recorded Confirmed Type nitroglycerin 0.4 mg sublingual 0.4 mg sublingual DIRECTED PRN 08/09/19 08/09/22 History tablet Chest Pain baclofen 5 mg tablet 5 mg PO QAM #30 tabs 09/22/20 08/09/22 Rx carvedilol 12.5 mg tablet 12.5 mg PO BID #60 tabs 09/22/20 08/09/22 Rx clopidogrel 75 mg tablet (Plavix) 75 mg PO QAM #30 tabs 09/22/20 08/09/22 Rx insulin glargine 100 unit/mL See Rx Instructions .Route 09/22/20 08/09/22 Rx subcutaneous solution (Lantus .COMPLEX #10 mL U-100 Insulin) insulin aspart U-100 100 unit/mL 10 unit subcut AC 01/11/21 08/09/22 History subcutaneous solution (Novolog U-100 Insulin aspart) tamsulosin 0.4 mg capsule 0.4 mg PO HS 01/11/21 08/09/22 History atorvastatin 80 mg tablet 80 mg PO QPM 05/17/21 08/09/22 History ferrous sulfate 325 mg (65 mg 325 mg PO QAM #30 tabs 01/15/22 08/09/22 Rx iron) tablet,delayed release enoxaparin 120 mg/0.8 mL 120 mg subcut BID 08/09/22 08/09/22 History subcutaneous syringe lisinopril 5 mg tablet 5 mg PO QAM 08/09/22 08/09/22 History Patient History Medical History Aortic valve stenosis BPH with obstruction/lower urinary tract symptoms CAD (coronary artery disease) 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 in the setting of diabetes for which patient initially underwent off pump 3 vessel coronary artery bypass grafting in 2006 with DUARTE to LAD, SVG to circumflex and SVG to PDA Bare metal stent to protected left main coronary artery 08/13/2015 PCI drug-eluting stent to the saphenous vein graft to RPDA 04/17/2014 PCI, drug-eluting stent to the ostial portion of the SVG to RCA 12/04/2014 for severe in stent restenosis Carotid stenosis Diabetic peripheral neuropathy associated with type 2 diabetes mellitus Dyslipidemia H/O deep venous thrombosis Hemiplegia affecting right dominant side History of CVA (cerebrovascular accident) History of pancreatitis HTN (hypertension) Hypomagnesemia Monoplegia affecting right dominant side Obesity Osteomyelitis of great toe of right foot Proliferative diabetic retinopathy Retinal edema Right foot drop Status post administration of all doses of COVID-19 vaccine series Status post cerebrovascular accident Status post myocardial infarction Superior mesenteric artery stenosis Type 2 diabetes mellitus Surgical History Hx of vitrectomy S/P angioplasty with stent S/P CABG x 3 S/P PTCA (percutaneous transluminal coronary angioplasty) Family History Father Heart disease Social History Smoking Status: Former smoker Tobacco Type: Cigarettes Second Hand Exposure: No; Do You Dip or Chew Tobacco: No; Tobacco Cessation Education Requested by Patient: No Hx Alcohol Use: No Hx Substance Use: No Preferred Language: Pashto Communication Ability: Impaired Visual Impairment: No Limitations Hearing Ability: Normal Windows Laptop Technician Required: No Beliefs That Will Affect Care: None marital status: Current Living Situation: Spouse Current Living Situation Comment: Lives with in a split level home but he is in basement current occupational status: disabled Other Information That Helps Us Care for You: No Feels Safe at Home: Yes Safety Concerns: Feels Safe At This Time Assistive Devices: None Review of Systems Review of Systems: A complete and accurate review of systems was unable to be obtained from the patient. Physical Exam Physical Exam: General: NAD. HENT: Normocephalic. Atraumatic. Eyes: PER. Conjunctiva pink, sclera pale. Neck: Carotid bruits bilaterally. Neck veins are flat. Heart: Regular at 64 bpm. Grade III/ systolic ejection murmur of aortic stenosis. ? Soft diastolic murmur. No rub. PMI is nondisplaced. Lungs: Diminished. Decreased. Rhonchi that improve post cough. No wheeze. Abdomen: +BS. Soft. Nontender. No masses or organomegaly. Extremities: + Left upper extremity swell. No clubbing. No cyanosis. No signifi cant lower extremity edema. Compression stockings in place. Pulses: radial=1/4, posterior tibial=0/4. Results & Data ([facility]) Vital Signs (Past 12 Hours) Vital Signs Temp Pulse Pulse Resp BP BP Pulse Ox 08/10/22 08:00 36.5 C 88 16 114/74 97 08/10/22 06:10 36.6 C 82 20 103/66 98 08/10/22 05:31 36.6 C 73 20 102/64 99 08/10/22 04:31 36.5 C 75 18 98/61 L 99 08/10/22 03:28 36.6 C 82 16 94/58 L 99 08/10/22 03:17 36.7 C 86 18 98/63 L 100 08/10/22 04:30 36.5 C 78 20 98/61 L 99 08/10/22 04:01 36.8 C 80 20 96/60 L 98 08/10/22 03:46 36.7 C 82 24 100/63 99 08/10/22 02:15 37.5 C 85 24 99/61 L 99 08/10/22 01:45 37.1 C 87 24 99/62 L 98 08/10/22 01:31 76 08/10/22 01:30 36.7 C 87 18 99/63 L 99 08/10/22 01:11 37.4 C 82 16 100/64 99 08/09/22 23:05 36.9 C 78 18 97/61 L 98 O2 Del Method O2 Flow Rate 08/10/22 08:00 Room Air 08/10/22 06:10 1 08/10/22 05:31 1 08/10/22 04:31 1 08/10/22 03:28 1 08/10/22 03:17 1 08/10/22 04:30 1 08/10/22 04:01 1 08/10/22 03:46 1 08/10/22 02:15 1 08/10/22 01:45 1 08/10/22 01:31 08/10/22 01:30 1 08/10/22 01:11 1 08/09/22 23:05 Room Air Laboratory Results Cardiac Enzymes 08/09/22 08/09/22 08/10/22 Range/Units 15:05 20:59 07:31 AST 7 L (13-39) U/L Troponin I High Sens 1135.4 H* 1317.6 H* 1008.3 H* D (0-20) pg/ml Coagulation 08/09/22 Range/Units 15:05 PT 13.0 H (9.0-12.0) Seconds APTT 33.1 H (21.0-31.0) Seconds CBC 08/09/22 08/09/22 08/10/22 Range/Units 15:05 23:00 07:31 WBC 7.27 7.72 (4.8-10.8) K/ul RBC 2.63 L 4.11 L (4.70-6.10) M/uL Hgb 5.9 L* 5.9 L* 10.5 L D (14.0-18.0) g/dl Hct 20.1 L* 20.5 L* 32.3 L (42.0-52.0) % Plt Count 346 295 (130-400) K/uL Neut # (Auto) 5.49 5.86 (1.40-6.50) K/uL Lymph # (Auto) 1.17 L 1.12 L (1.2-3.4) K/uL [place] # (Auto) 0.52 0.62 H (0.11-0.59) K/uL Eos # (Auto) 0.04 0.04 (0-0.50) K/uL Baso # (Auto) 0.03 0.03 (0-0.2) K/uL Comprehensive Metabolic Panel 08/09/22 08/10/22 Range/Units 15:05 07:31 Sodium 130 L 132 L (136-145) mmol/L Potassium 4.4 4.5 (3.5-5.1) mmol/L Chloride 100 104 (98-107) mmol/L Carbon Dioxide 26 24 (21-32) mmol/L BUN 11 13 (6-23) mg/dl Creatinine 0.44 L 0.43 L (0.6-1.4) mg/dl Glucose 154 H 158 H (70-99(Fasting)) mg/dl Calcium 7.5 L 7.9 L (8.5-10.1) mg/dl Direct Bilirubin 0.1 (0-0.2) mg/dl AST 7 L (13-39) U/L ALT 14 (7-52) U/L Alkaline Phosphatase 109 H (34-104) U/L Total Protein 5.5 L (6.0-8.3) gm/dl Albumin 2.6 L (3.4-5.0) gm/dl Intake and Output 08/09/22 08/10/22 08/10/22 22:59 06:59 14:59 Intake Total 1510 / 2130 620 / 2130 Output Total 40 / 40 Balance 1470 / 2090 620 / 2090 Intake: IV 1200 / 1200 Magnesium Sulfate / D5w 1 gm In 100 / 100 100 ml @ 100 mls/hr IV NOW STA Rx#:[id number] PANTOprazole 80 mg In Dextrose 100 / 100 5% 100 ml @ 400 mls/hr IV ONE STA Rx#:[id number] Sodium Chloride 0.9% 1000ML 500 1000 / 1000 ml @ 999 mls/hr IV .Q31M ONE Rx#:[id number] Oral 0 / 0 Intake (Blood Product) Amt 310 / 930 620 / 930 Packed Cells, Leukoreduced 310 / 310 Unit [id number] Packed Cells, Leukoreduced 310 / 310 Unit [id number] Packed Cells, Leukoreduced 310 / 310 Unit [id number] Packed Cells, Leukoreduced 0 / 0 Unit [id number] Output: Urine 40 / 40 Other: Other Intake Source Patient is NPO # Unmeasured Voids 1 Weight 80.6 kg 80.6 kg Weight Measurement Method Built in [facility] Diagnostic Findings August 13, 2015 Catheterization: The coronary arteries have significant 3 vessel disease. The previously placed stent in the Ostial RCA Graft has no in-stent restenosis. 3 of 3 bypass grafts are patent. There was complete revascularization achieved with stenting of the LMCA December 18, 2021 TTE Interpretation Summary ([facility], Dr. Boykin): EF 65-70%. Severe concentric LVH. Small apical WMA with thinning of the myocardium and akinesis. Moderately calcified aortic valve with borderline severe aortic stenosis. Compared to the study from 01/12/2021, there is no significant change. Echo pending this admission. Telemetry this admission: Sinus in the 80's. (3) Anemia Anemia type: unspecified type Qualified Code(s): D64.9 - Anemia, unspecified
--- NOTE | 2022-08-10 11:44 | CT Scan Report ---
CT forearm LT wo con, CT humerus LT wo con CLINICAL HISTORY: edema, r/o hematoma TECHNIQUE: Multidetector row helical CT of the left forearm and left humerus was performed without in travenous contrast. Coronal and sagittal reformations were obtained. Automated dose lowering techniqu es and/or adjustment according to patient size were utilized for this examination. Comparison: None available at the time of this dictation. FINDINGS: Heterotopic ossification is seen about the elbow. The joint spaces are maintained. No joint effusion is seen. Soft tissue edema is seen about the elbow and forearm without discrete drainable fluid kavon ection. Atherosclerosis is noted. IMPRESSION: Soft tissue edema and heterotopic ossification. This may represent cellulitis, simple edema or contus ion. No discrete fluid collection is seen. ACT 112: Negative or not required by law. Electronically signed by: Bardley Reeves M.D. 08/10/2022 11:42 AM
--- NOTE | 2022-08-10 12:47 | Gastrointestinal Consultation ---
Date of Consultation August 10, 2022 Assessment & Plan (1) Anemia: (2) Hematoma of right thigh: Plan 62 y/o male with h/o CVA, CAD, DVT, on anticoagulation and others, admitted for lethargy, and GI asked to evaluate for acute on chronic anemia, to consider colonoscopy Imaging suggestive of large hematoma in the right thigh and swelling in the LUE of unclear etiology. Though pt had + FOBT in the ER, he has had no black or bloody stools, or vomiting blood reported either here or at home. HGB responded appropriately to pRBC transfusions and pt remains HD stable. Abd soft, nontender, nondistended. Currently remains lethargic, unable to participate in ROS. Currently is NPO until mental status improves. He had EGD done within the last year for the same indication and that was WNL. Pt has at least one large extremity hematoma on imaging which likely accounts for at least some of his acute anemia. As he has had no overt GI bleeding reported, and potential risks outweigh potential benefits of scoping currently as an inpt given his co-morbidities, would recommend close observation here and plan outpt colonoscopy when his acute issues improve. - Trend H&H, transfuse PRN - Monitor and document GI output - If pt develops acute overt GIB while here please re-consult for reconsideration of endoscopy at that time. - Agree with iron supplementation and monitoring of HGB periodically as OP - GI will sign off, please call with questions Thank you for allowing us to participate in the care of this patient. Please call with any acute changes, questions or concerns. Please see addendum below with additional recommendation from my supervising physician. Supervising Physician Co-Signing Physician Notes I personally saw and evaluated the patient with Prudence Caruso PA-C on 08/10/2022. I agree with her recommendations and plan as above. Briefly, this is a very medically complex 62 y/o M with significant past medical history including severe aortic stenosis not deemed a candidate for intervention, chronic MELYSSA, early onset severe atherosclerotic disease on BID lovenox and plavix, hx of DVTs, chronically bedbound. He was admitted with lethargy found to have a hgb of 5.4 from recent baseline of 9-10 those was previously running 7-8 back in December. He was found to have a large R thigh hematoma on imaging. He has had no overt signs of GI bleeding including melena, hematemesis, or hematochezia. He had a normal EGD in 12/2021. No hx of colonoscopy. On physical exam he is lethargic but does open his eyes. Non-verbal. Contractures of his hands. 4/6 systolic murmur appreciated with diminished lung sounds. Notable abdominal bruit. 3+ RLE swelling and 2+ LUE swelling. No ecchymosis over extremities. Abdomen is soft, non-tender, non-distended. In the absence of any overt bleeding and another reason to have anemia (large thigh hematoma) would not recommend inpatient endoscopy at this time as risks would outweigh benefit. If he were to have a 4 gram hgb drop from his GI tract this certainly would have manifested with overt blood in the stool. We will arrange for outpatient colonoscopy when he is more awake and will tolerate prep better. He will need a 2 day prep before colonoscopy as outpatient given significant stool burden seen on imaging. Continue to trend H/H. Please let us know if he develops overt bleeding and at that time inpatient endoscopy could be discussed. 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 On initial w/u in the ER was found to have hypotension along with acute on chronic anemia (HGB 5.9), normal BUN, hyponatremia, low mag, elevated troponin 1100, EKG showing deep T wave inversion in the lateral leads however similar in appearance to EKG from 08/2021. Reportedly in the ER had trace positive FOBT. Right thigh and LUE swelling noted, imaging suggestive of at least one large right thigh hematoma (5 cm) and left arm edema (? contusion, edema, cellulitis). He was given 4 units PRBC and HGB improved to 10.5. Head CT, CXR nonacute. Initially surgery was consulted for the hematoma and recommendation was for pt to be transferred to higher level of care. However, tertiary center advised keeping pt here as he had no active bleeding on imaging. GI asked to evaluate for anemia, no report of black or bloody stools. His reported no h/o melena, hematochezia, hematemesis at home nad he had not any overt GIB while here. Large stool burden noted on CT as well. Reportedly he has been eating at baseline at home; stooling well. As an OP has had slow downtrending of HGB from 11->8 over the last year. EGD done last year for the same was WNL as below. Pt is currently lethargic and not able to participate in ROS or exam. EGD 12/2021 for anemia: - Normal esophagus. - Normal stomach. - Normal examined duodenum. - No specimens collected. EUS 2011: fatty pancreas, fatty liver Last colonoscopy 2017: done for hx of polyps, polyp removed, adenoma, repeat recommend 5 years Allergies Allergy/AdvReac Type Severity Reaction Status Date / Time No Known Allergies Allergy Verified 08/09/22 15:58 Home Medications Medication Instructions Recorded Confirmed Type nitroglycerin 0.4 mg sublingual 0.4 mg sublingual DIRECTED PRN 08/09/19 08/09/22 History tablet Chest Pain baclofen 5 mg tablet 5 mg PO QAM #30 tabs 09/22/20 08/09/22 Rx carvedilol 12.5 mg tablet 12.5 mg PO BID #60 tabs 09/22/20 08/09/22 Rx clopidogrel 75 mg tablet (Plavix) 75 mg PO QAM #30 tabs 09/22/20 08/09/22 Rx insulin glargine 100 unit/mL See Rx Instructions .Route 09/22/20 08/09/22 Rx subcutaneous solution (Lantus .COMPLEX #10 mL U-100 Insulin) insulin aspart U-100 100 unit/mL 10 unit subcut AC 01/11/21 08/09/22 History subcutaneous solution (Novolog U-100 Insulin aspart) tamsulosin 0.4 mg capsule 0.4 mg PO HS 01/11/21 08/09/22 History atorvastatin 80 mg tablet 80 mg PO QPM 05/17/21 08/09/22 History ferrous sulfate 325 mg (65 mg 325 mg PO QAM #30 tabs 01/15/22 08/09/22 Rx iron) tablet,delayed release enoxaparin 120 mg/0.8 mL 120 mg subcut BID 08/09/22 08/09/22 History subcutaneous syringe lisinopril 5 mg tablet 5 mg PO QAM 08/09/22 08/09/22 History Patient History Medical History Aortic valve stenosis BPH with obstruction/lower urinary tract symptoms CAD (coronary artery disease) 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 in the setting of diabetes for which patient initially underwent off pump 3 vessel coronary artery bypass grafting in 2006 with DUARTE to LAD, SVG to circumflex and SVG to PDA Bare metal stent to protected left main coronary artery 08/13/2015 PCI drug-eluting stent to the saphenous vein graft to RPDA 04/17/2014 PCI, drug-eluting stent to the ostial portion of the SVG to RCA 12/04/2014 for severe in stent restenosis Carotid stenosis Diabetic peripheral neuropathy associated with type 2 diabetes mellitus Dyslipidemia H/O deep venous thrombosis Hemiplegia affecting right dominant side History of CVA (cerebrovascular accident) History of pancreatitis HTN (hypertension) Hypomagnesemia Monoplegia affecting right dominant side Obesity Osteomyelitis of great toe of right foot Proliferative diabetic retinopathy Retinal edema Right foot drop Status post administration of all doses of COVID-19 vaccine series Status post cerebrovascular accident Status post myocardial infarction Superior mesenteric artery stenosis Type 2 diabetes mellitus Surgical History Hx of vitrectomy S/P angioplasty with stent S/P CABG x 3 S/P PTCA (percutaneous transluminal coronary angioplasty) Family History Father Heart disease Social History Smoking Status: Former smoker Tobacco Type: Cigarettes Second Hand Exposure: No; Do You Dip or Chew Tobacco: No; Tobacco Cessation Education Requested by Patient: No Hx Alcohol Use: No Hx Substance Use: No Preferred Language: Slovenian Communication Ability: Impaired Visual Impairment: No Limitations Hearing Ability: Normal Greaser Operator Required: No Beliefs That Will Affect Care: None marital status: Current Living Situation: Spouse Current Living Situation Comment: Lives with in a split level home but he is in basement current occupational status: disabled Other Information That Helps Us Care for You: No Feels Safe at Home: Yes Safety Concerns: Feels Safe At This Time Assistive Devices: None Review of Systems Review of Systems: Unobtainable due to cognitive status Physical Exam Constitutional: well developed and comfortable; no acute distress Eyes: Sclera anicteric, no conjunctival injection ENMT: external ear and nose normal, oropharynx normal moist mucous membranes Neck: trachea midline supple Respiratory: normal respiratory effort, lungs clear to auscultation Cardiovascular: RRR, III/IV systolic murmur heard throughout the precordium Gastrointestinal (Abdomen): normal bowel sounds, soft, nontender, no hepatosplenomegaly Inspection/Auscultation: abdomen not distended Musculoskeletal: RUE and left thigh with edema, firm to the touch, no erythema Skin: no rashes, warm and dry Neurologic: Lethargic, opens eyes very briefly to voice/tactile stimulation but then goes back to sleep; doesn't answer questions or follow commands Results & Data ([facility]) Vital Signs (Past 12 Hours) Vital Signs Temp Pulse Pulse Resp BP BP Pulse Ox 08/10/22 12:00 36.5 C 79 18 122/68 08/10/22 08:00 36.5 C 88 16 114/74 97 08/10/22 06:10 36.6 C 82 20 103/66 98 08/10/22 05:31 36.6 C 73 20 102/64 99 08/10/22 04:31 36.5 C 75 18 98/61 L 99 08/10/22 03:28 36.6 C 82 16 94/58 L 99 08/10/22 03:17 36.7 C 86 18 98/63 L 100 08/10/22 04:30 36.5 C 78 20 98/61 L 99 08/10/22 04:01 36.8 C 80 20 96/60 L 98 08/10/22 03:46 36.7 C 82 24 100/63 99 08/10/22 02:15 37.5 C 85 24 99/61 L 99 08/10/22 01:45 37.1 C 87 24 99/62 L 98 08/10/22 01:31 76 08/10/22 01:30 36.7 C 87 18 99/63 L 99 03/07/23 01:11 37.4 C 82 16 100/64 99 O2 Del Method O2 Flow Rate 08/10/22 12:00 Room Air 08/10/22 08:00 Room Air 08/10/22 06:10 1 08/10/22 05:31 1 08/10/22 04:31 1 08/10/22 03:28 1 08/10/22 03:17 1 08/10/22 04:30 1 08/10/22 04:01 1 08/10/22 03:46 1 08/10/22 02:15 1 08/10/22 01:45 1 08/10/22 01:31 08/10/22 01:30 1 08/10/22 01:11 1 Laboratory Results 08/10/22 08/10/22 08/10/22 Range/Units 11:57 07:31 07:31 WBC 7.72 (4.8-10.8) K/ul RBC 4.11 L (4.70-6.10) M/uL Hgb 10.5 L D (14.0-18.0) g/dl Hct 32.3 L (42.0-52.0) % MCV 78.6 L (80.0-100.0) fL MCH 25.5 (25.0-34.0) pg MCHC 32.5 D (32.0-36.0) g/dL RDW Std Deviation 50.3 H (36.4-46.3) fL RDW Coeff of Caroline 17.8 H (11.5-14.5) % Plt Count 295 (130-400) K/uL MPV 9.8 (9.4-12.4) fL Immature Gran % (Auto) 0.6 % Neut % (Auto) 76.0 % Lymph % (Auto) 14.5 % [place] % (Auto) 8.0 % Eos % (Auto) 0.5 % Baso % (Auto) 0.4 % Neut # (Auto) 5.86 (1.40-6.50) K/uL Lymph # (Auto) 1.12 L (1.2-3.4) K/uL [place] # (Auto) 0.62 H (0.11-0.59) K/uL Eos # (Auto) 0.04 (0-0.50) K/uL Baso # (Auto) 0.03 (0-0.2) K/uL Immature Gran # (Auto) 0.05 (0.01-0.20) K/uL Anisocytosis Ovalocytes Echinocytes PT (9.0-12.0) Seconds INR (0.9-1.1) APTT (21.0-31.0) Seconds PTT Ratio Sodium 132 L (136-145) mmol/L Potassium 4.5 (3.5-5.1) mmol/L Chloride 104 (98-107) mmol/L Carbon Dioxide 24 (21-32) mmol/L Anion Gap 4 (3-11) BUN 13 (6-23) mg/dl Creatinine 0.43 L (0.6-1.4) mg/dl Est Cr Clr Drug Dosing 184.8 Est GFR ( Amer) 141.2 ml/min Est GFR (Non-Af Amer) 121.9 ml/min BUN/Creatinine Ratio 30.2 H (10-20) Glucose 158 H (70-99(Fasting)) mg/dl POC Glucose 180 H (70-99) mg/dl Lactate (0.4-2.0) mmol/L Calcium 7.9 L (8.5-10.1) mg/dl Phosphorus 3.2 (2.5-4.9) mg/dl Magnesium 1.7 (1.7-2.4) mg/dl Total Bilirubin (0.2-1.0) mg/dl Direct Bilirubin (0-0.2) mg/dl AST (13-39) U/L ALT (7-52) U/L Alkaline Phosphatase (34-104) U/L Ammonia (18-72) umol/L Total Creatine Kinase (30-223) U/L Troponin I High Sens 1008.3 H* D (0-20) pg/ml Total Protein (6.0-8.3) gm/dl Albumin (3.4-5.0) gm/dl Procalcitonin (0-0.5) ng/ml Urine Color Urine Appearance (Clear) Urine pH (4.5-7.5) Ur Specific [place] (1.000-1.030) Urine Protein (Negative) Urine Glucose (UA) (Negative) Urine Ketones (Negative) Urine Blood (Negative) Urine Nitrite (Negative) Urine Bilirubin (Negative) Urine Urobilinogen (Negative) Ur Leukocyte Esterase (Negative) Urine WBC (Auto) (0-5) /hpf Urine RBC (Auto) (0-4) /hpf U Hyaline Cast (Auto) (0-5) /lpf U Epithel Cells (Auto) (0-5) /lpf Urine Bacteria (Auto) (Negative) Ur Renal Epithelial Cell Urine Yeast SARS-CoV-2 (PCR) (Negative) Influenza Type A (PCR) (Neg) Influenza Type B (PCR) (Neg) RSV (RT-PCR) (Neg) Blood Type Antibody Screen Crossmatch 08/10/22 08/09/22 08/09/22 Range/Units 07:22 23:00 20:59 WBC (4.8-10.8) K/ul RBC (4.70-6.10) M/uL Hgb 5.9 L* (14.0-18.0) g/dl Hct 20.5 L* (42.0-52.0) % MCV (80.0-100.0) fL MCH (25.0-34.0) pg MCHC (32.0-36.0) g/dL RDW Std Deviation (36.4-46.3) fL RDW Coeff of Caroline (11.5-14.5) % Plt Count (130-400) K/uL MPV (9.4-12.4) fL Immature Gran % (Auto) % Neut % (Auto) % Lymph % (Auto) % S[place]y % (Auto) % Eos % (Auto) % Baso % (Auto) % Neut # (Auto) (1.40-6.50) K/uL Lymph # (Auto) (1.2-3.4) K/uL [place] # (Auto) (0.11-0.59) K/uL Eos # (Auto) (0-0.50) K/uL Baso # (Auto) (0-0.2) K/uL Immature Gran # (Auto) (0.01-0.20) K/uL Anisocytosis Ovalocytes Echinocytes PT (9.0-12.0) Seconds INR (0.9-1.1) APTT (21.0-31.0) Seconds PTT Ratio Sodium (136-145) mmol/L Potassium (3.5-5.1) mmol/L Chloride (98-107) mmol/L Carbon Dioxide (21-32) mmol/L Anion Gap (3-11) BUN (6-23) mg/dl Creatinine (0.6-1.4) mg/dl Est Cr Clr Drug Dosing Est GFR ( Amer) ml/min Est GFR (Non-Af Amer) ml/min BUN/Creatinine Ratio (10-20) Glucose (70-99(Fasting)) mg/dl POC Glucose 166 H (70-99) mg/dl Lactate (0.4-2.0) mmol/L Calcium (8.5-10.1) mg/dl Phosphorus (2.5-4.9) mg/dl Magnesium (1.7-2.4) mg/dl Total Bilirubin (0.2-1.0) mg/dl Direct Bilirubin (0-0.2) mg/dl AST (13-39) U/L ALT (7-52) U/L Alkaline Phosphatase (34-104) U/L Ammonia (18-72) umol/L Total Creatine Kinase (30-223) U/L Troponin I High Sens 1317.6 H* (0-20) pg/ml Total Protein (6.0-8.3) gm/dl Albumin (3.4-5.0) gm/dl Procalcitonin (0-0.5) ng/ml Urine Color Urine Appearance (Clear) Urine pH (4.5-7.5) Ur Specific [place] (1.000-1.030) Urine Protein (Negative) Urine Glucose (UA) (Negative) Urine Ketones (Negative) Urine Blood (Negative) Urine Nitrite (Negative) Urine Bilirubin (Negative) Urine Urobilinogen (Negative) Ur Leukocyte Esterase (Negative) Urine WBC (Auto) (0-5) /hpf Urine RBC (Auto) (0-4) /hpf U Hyaline Cast (Auto) (0-5) /lpf U Epithel Cells (Auto) (0-5) /lpf Urine Bacteria (Auto) (Negative) Ur Renal Epithelial Cell Urine Yeast SARS-CoV-2 (PCR) (Negative) Influenza Type A (PCR) (Neg) Influenza Type B (PCR) (Neg) RSV (RT-PCR) (Neg) Blood Type Antibody Screen Crossmatch 0308/09/22 08/09/22 Range/Units 20:14 16:00 15:50 WBC (4.8-10.8) K/ul RBC (4.70-6.10) M/uL Hgb (14.0-18.0) g/dl Hct (42.0-52.0) % MCV (80.0-100.0) fL MCH (25.0-34.0) pg MCHC (32.0-36.0) g/dL RDW Std Deviation (36.4-46.3) fL RDW Coeff of Caroline (11.5-14.5) % Plt Count (130-400) K/uL MPV (9.4-12.4) fL Immature Gran % (Auto) % Neut % (Auto) % Lymph % (Auto) % [place] % (Auto) % Eos % (Auto) % Baso % (Auto) % Neut # (Auto) (1.40-6.50) K/uL Lymph # (Auto) (1.2-3.4) K/uL [place] # (Auto) (0.11-0.59) K/uL Eos # (Auto) (0-0.50) K/uL Baso # (Auto) (0-0.2) K/uL Immature Gran # (Auto) (0.01-0.20) K/uL Anisocytosis Ovalocytes Echinocytes PT (9.0-12.0) Seconds INR (0.9-1.1) APTT (21.0-31.0) Seconds PTT Ratio Sodium (136-145) mmol/L Potassium (3.5-5.1) mmol/L Chloride (98-107) mmol/L Carbon Dioxide (21-32) mmol/L Anion Gap (3-11) BUN (6-23) mg/dl Creatinine (0.6-1.4) mg/dl Est Cr Clr Drug Dosing Est GFR ( Amer) ml/min Est GFR (Non-Af Amer) ml/min BUN/Creatinine Ratio (10-20) Glucose (70-99(Fasting)) mg/dl POC Glucose 154 H (70-99) mg/dl Lactate (0.4-2.0) mmol/L Calcium (8.5-10.1) mg/dl Phosphorus (2.5-4.9) mg/dl Magnesium (1.7-2.4) mg/dl Total Bilirubin (0.2-1.0) mg/dl Direct Bilirubin (0-0.2) mg/dl AST (13-39) U/L ALT (7-52) U/L Alkaline Phosphatase (34-104) U/L Ammonia (18-72) umol/L Total Creatine Kinase (30-223) U/L Troponin I High Sens (0-20) pg/ml Total Protein (6.0-8.3) gm/dl Albumin (3.4-5.0) gm/dl Procalcitonin (0-0.5) ng/ml Urine Color Dark Yellow Urine Appearance Clear (Clear) Urine pH 5.5 (4.5-7.5) Ur Specific [place] 1.019 (1.000-1.030) Urine Protein Negative (Negative) Urine Glucose (UA) Negative (Negative) Urine Ketones Negative (Negative) Urine Blood Negative (Negative) Urine Nitrite Negative (Negative) Urine Bilirubin Negative (Negative) Urine Urobilinogen Negative (Negative) Ur Leukocyte Esterase 2+ H (Negative) Urine WBC (Auto) 10-30 H (0-5) /hpf Urine RBC (Auto) 0-4 (0-4) /hpf U Hyaline Cast (Auto) 0 (0-5) /lpf U Epithel Cells (Auto) >30 H (0-5) /lpf Urine Bacteria (Auto) Negative (Negative) Ur Renal Epithelial Cell Not Reportable Urine Yeast Not Reportable SARS-CoV-2 (PCR) NEGATIVE (Negative) Influenza Type A (PCR) Negative (Neg) Influenza Type B (PCR) Negative (Neg) RSV (RT-PCR) Negative (Neg) Blood Type Antibody Screen Crossmatch 08/09/22 08/09/22 08/09/22 Range/Units 15:09 15:05 15:05 WBC (4.8-10.8) K/ul RBC (4.70-6.10) M/uL Hgb (14.0-18.0) g/dl Hct (42.0-52.0) % MCV (80.0-100.0) fL MCH (25.0-34.0) pg MCHC (32.0-36.0) g/dL RDW Std Deviation (36.4-46.3) fL RDW Coeff of Caroline (11.5-14.5) % Plt Count (130-400) K/uL MPV (9.4-12.4) fL Immature Gran % (Auto) % Neut % (Auto) % Lymph % (Auto) % [place] % (Auto) % Eos % (Auto) % Baso % (Auto) % Neut # (Auto) (1.40-6.50) K/uL Lymph # (Auto) (1.2-3.4) K/uL [place] # (Auto) (0.11-0.59) K/uL Eos # (Auto) (0-0.50) K/uL Baso # (Auto) (0-0.2) K/uL Immature Gran # (Auto) (0.01-0.20) K/uL Anisocytosis Ovalocytes Echinocytes PT 13.0 H (9.0-12.0) Seconds INR 1.2 H (0.9-1.1) APTT 33.1 H (21.0-31.0) Seconds PTT Ratio 1.2 Sodium (136-145) mmol/L Potassium (3.5-5.1) mmol/L Chloride (98-107) mmol/L Carbon Dioxide (21-32) mmol/L Anion Gap (3-11) BUN (6-23) mg/dl Creatinine (0.6-1.4) mg/dl Est Cr Clr Drug Dosing Est GFR ( Amer) ml/min Est GFR (Non-Af Amer) ml/min BUN/Creatinine Ratio (10-20) Glucose (70-99(Fasting)) mg/dl POC Glucose (70-99) mg/dl Lactate (0.4-2.0) mmol/L Calcium (8.5-10.1) mg/dl Phosphorus (2.5-4.9) mg/dl Magnesium (1.7-2.4) mg/dl Total Bilirubin (0.2-1.0) mg/dl Direct Bilirubin (0-0.2) mg/dl AST (13-39) U/L ALT (7-52) U/L Alkaline Phosphatase (34-104) U/L Ammonia 25.0 (18-72) umol/L Total Creatine Kinase (30-223) U/L Troponin I High Sens (0-20) pg/ml Total Protein (6.0-8.3) gm/dl Albumin (3.4-5.0) gm/dl Procalcitonin (0-0.5) ng/ml Urine Color Urine Appearance (Clear) Urine pH (4.5-7.5) Ur Specific [place] (1.000-1.030) Urine Protein (Negative) Urine Glucose (UA) (Negative) Urine Ketones (Negative) Urine Blood (Negative) Urine Nitrite (Negative) Urine Bilirubin (Negative) Urine Urobilinogen (Negative) Ur Leukocyte Esterase (Negative) Urine WBC (Auto) (0-5) /hpf Urine RBC (Auto) (0-4) /hpf U Hyaline Cast (Auto) (0-5) /lpf U Epithel Cells (Auto) (0-5) /lpf Urine Bacteria (Auto) (Negative) Ur Renal Epithelial Cell Urine Yeast SARS-CoV-2 (PCR) (Negative) Influenza Type A (PCR) (Neg) Influenza Type B (PCR) (Neg) RSV (RT-PCR) (Neg) Blood Type A Positive Antibody Screen NEGATIVE Crossmatch See Detail 08/09/22 08/09/22 08/09/22 Range/Units 15:05 15:05 15:05 WBC (4.8-10.8) K/ul RBC (4.70-6.10) M/uL Hgb (14.0-18.0) g/dl Hct (42.0-52.0) % MCV (80.0-100.0) fL MCH (25.0-34.0) pg MCHC (32.0-36.0) g/dL RDW Std Deviation (36.4-46.3) fL RDW Coeff of Caroline (11.5-14.5) % Plt Count (130-400) K/uL MPV (9.4-12.4) fL Immature Gran % (Auto) % Neut % (Auto) % Lymph % (Auto) % [place] % (Auto) % Eos % (Auto) % Baso % (Auto) % Neut # (Auto) (1.40-6.50) K/uL Lymph # (Auto) (1.2-3.4) K/uL [place] # (Auto) (0.11-0.59) K/uL Eos # (Auto) (0-0.50) K/uL Baso # (Auto) (0-0.2) K/uL Immature Gran # (Auto) (0.01-0.20) K/uL Anisocytosis Ovalocytes Echinocytes PT (9.0-12.0) Seconds INR (0.9-1.1) APTT (21.0-31.0) Seconds PTT Ratio Sodium 130 L (136-145) mmol/L Potassium 4.4 (3.5-5.1) mmol/L Chloride 100 (98-107) mmol/L Carbon Dioxide 26 (21-32) mmol/L Anion Gap 4 (3-11) BUN 11 (6-23) mg/dl Creatinine 0.44 L (0.6-1.4) mg/dl Est Cr Clr Drug Dosing Not Reportable Est GFR ( Amer) 139.9 ml/min Est GFR (Non-Af Amer) 120.7 ml/min BUN/Creatinine Ratio 25.0 H (10-20) Glucose 154 H (70-99(Fasting)) mg/dl POC Glucose (70-99) mg/dl Lactate 1.5 (0.4-2.0) mmol/L Calcium 7.5 L (8.5-10.1) mg/dl Phosphorus (2.5-4.9) mg/dl Magnesium 1.6 L (1.7-2.4) mg/dl Total Bilirubin 0.9 (0.2-1.0) mg/dl Direct Bilirubin 0.1 (0-0.2) mg/dl AST 7 L (13-39) U/L ALT 14 (7-52) U/L Alkaline Phosphatase 109 H (34-104) U/L Ammonia (18-72) umol/L Total Creatine Kinase 175 (30-223) U/L Troponin I High Sens 1135.4 H* (0-20) pg/ml Total Protein 5.5 L (6.0-8.3) gm/dl Albumin 2.6 L (3.4-5.0) gm/dl Procalcitonin 0.05 (0-0.5) ng/ml Urine Color Urine Appearance (Clear) Urine pH (4.5-7.5) Ur Specific [place] (1.000-1.030) Urine Protein (Negative) Urine Glucose (UA) (Negative) Urine Ketones (Negative) Urine Blood (Negative) Urine Nitrite (Negative) Urine Bilirubin (Negative) Urine Urobilinogen (Negative) Ur Leukocyte Esterase (Negative) Urine WBC (Auto) (0-5) /hpf Urine RBC (Auto) (0-4) /hpf U Hyaline Cast (Auto) (0-5) /lpf U Epithel Cells (Auto) (0-5) /lpf Urine Bacteria (Auto) (Negative) Ur Renal Epithelial Cell Urine Yeast SARS-CoV-2 (PCR) (Negative) Influenza Type A (PCR) (Neg) Influenza Type B (PCR) (Neg) RSV (RT-PCR) (Neg) Blood Type Antibody Screen Crossmatch 08/09/22 Range/Units 15:05 WBC 7.27 (4.8-10.8) K/ul RBC 2.63 L (4.70-6.10) M/uL Hgb 5.9 L* (14.0-18.0) g/dl Hct 20.1 L* (42.0-52.0) % MCV 76.4 L (80.0-100.0) fL MCH 22.4 L (25.0-34.0) pg MCHC 29.4 L (32.0-36.0) g/dL RDW Std Deviation 54.3 H (36.4-46.3) fL RDW Coeff of Caroline 19.5 H (11.5-14.5) % Plt Count 346 (130-400) K/uL MPV 10.0 (9.4-12.4) fL Immature Gran % (Auto) 0.3 % Neut % (Auto) 75.4 % Lymph % (Auto) 16.1 % [place] % (Auto) 7.2 % Eos % (Auto) 0.6 % Baso % (Auto) 0.4 % Neut # (Auto) 5.49 (1.40-6.50) K/uL Lymph # (Auto) 1.17 L (1.2-3.4) K/uL [place] # (Auto) 0.52 (0.11-0.59) K/uL Eos # (Auto) 0.04 (0-0.50) K/uL Baso # (Auto) 0.03 (0-0.2) K/uL Immature Gran # (Auto) 0.02 (0.01-0.20) K/uL Anisocytosis Present Ovalocytes 1+ Echinocytes 1+ PT (9.0-12.0) Seconds INR (0.9-1.1) APTT (21.0-31.0) Seconds PTT Ratio Sodium (136-145) mmol/L Potassium (3.5-5.1) mmol/L Chloride (98-107) mmol/L Carbon Dioxide (21-32) mmol/L Anion Gap (3-11) BUN (6-23) mg/dl Creatinine (0.6-1.4) mg/dl Est Cr Clr Drug Dosing Est GFR ( Amer) ml/min Est GFR (Non-Af Amer) ml/min BUN/Creatinine Ratio (10-20) Glucose (70-99(Fasting)) mg/dl POC Glucose (70-99) mg/dl Lactate (0.4-2.0) mmol/L Calcium (8.5-10.1) mg/dl Phosphorus (2.5-4.9) mg/dl Magnesium (1.7-2.4) mg/dl Total Bilirubin (0.2-1.0) mg/dl Direct Bilirubin (0-0.2) mg/dl AST (13-39) U/L ALT (7-52) U/L Alkaline Phosphatase (34-104) U/L Ammonia (18-72) umol/L Total Creatine Kinase (30-223) U/L Troponin I High Sens (0-20) pg/ml Total Protein (6.0-8.3) gm/dl Albumin (3.4-5.0) gm/dl Procalcitonin (0-0.5) ng/ml Urine Color Urine Appearance (Clear) Urine pH (4.5-7.5) Ur Specific [place] (1.000-1.030) Urine Protein (Negative) Urine Glucose (UA) (Negative) Urine Ketones (Negative) Urine Blood (Negative) Urine Nitrite (Negative) Urine Bilirubin (Negative) Urine Urobilinogen (Negative) Ur Leukocyte Esterase (Negative) Urine WBC (Auto) (0-5) /hpf Urine RBC (Auto) (0-4) /hpf U Hyaline Cast (Auto) (0-5) /lpf U Epithel Cells (Auto) (0-5) /lpf Urine Bacteria (Auto) (Negative) Ur Renal Epithelial Cell Urine Yeast SARS-CoV-2 (PCR) (Negative) Influenza Type A (PCR) (Neg) Influenza Type B (PCR) (Neg) RSV (RT-PCR) (Neg) Blood Type Antibody Screen Crossmatch Diagnostic Findings CTAP: ed 03/18/2020 FINDINGS: Artifacts: Artifact in the upper abdomen from patient's arms. Lung bases: See below. Pleural space: Small bilateral pleural effusions greater on the left. Mild bibasilar atelectasis. Heart: Marked coronary artery calcifications. ABDOMEN: Liver: Unremarkable. Gallbladder and bile ducts: Unremarkable. No calcified stones. No ductal dilation. Pancreas: Unremarkable. No ductal dilation. Spleen: Unremarkable. No splenomegaly. Adrenals: Nodular adrenal glands, similar to the prior. Kidneys and ureters: Left renal low-density lesion better seen on the prior. No obstructing stones. No hydronephrosis. Stomach and bowel: Large amount of stool within distended rectum. No mucosal thickening. No bowel obstruction. PELVIS: Appendix: No findings to suggest acute appendicitis. Bladder: Bladder wall thickening of partially distended bladder. No stones. Reproductive: Unremarkable as visualized. ABDOMEN and PELVIS: Intraperitoneal space: See above. Bones/joints: Median sternotomy wires. Minimal sclerosis of the left inferior pubic ramus, new since the prior. Soft tissues: Enlarged right abductor musculature which appears hyperdense. Partially visualized on the inferior most images. Approximately 5 cm in transverse dimension. Dystrophic soft tissue calcifications/heterotopic ossification bilaterally in the musculature between the inferior pubic rami and proximal femurs. Chronic appearance although new since the prior study. Partially visualized. Anasarca. Soft tissue calcifications noted in the left forearm soft tissues, partially visualized. Vasculature: Marked diffuse atherosclerotic calcifications. Lymph nodes: Unremarkable. No enlarged lymph nodes. Tubes, lines and devices: Right this catheter with the tip in the right common iliac vein. IMPRESSION: 1. Enlarged right abductor musculature which appears hyperdense. Partially visualized on the inferior most images. Likely represents hematoma, approximately 5 cm in transverse dimension. Active bleeding or underlying lesion not excluded. 2. Large amount of stool within distended rectum. 3. Bladder wall thickening of partially distended bladder. May reflect cystitis or chronic bladder obstruction. 4. Dystrophic soft tissue calcifications/heterotopic ossification bilaterally in the musculature between the inferior pubic rami and proximal femurs. Chronic appearance although new since the prior study. Partially visualized. 5. Minimal sclerosis of the left inferior pubic ramus, new since the prior. Nonspecific. Correlate for infectious/inflammatory or neoplastic process. 6. Anasarca. 7. Small bilateral pleural effusions greater on the left. Mild bibasilar atelectasis. Head CT: Brain parenchyma: There is age-advanced involutional change noting advanced confluent subcortical and periventricular microangiopathic disease. There is no hemorrhage, mass effect, or evidence of acute territorial ischemia by CT criteria. A small chronic infarct is noted in the high right parietal lobe. Rose-white matter differentiation is preserved. No extra-axial fluid collection is seen. Ventricles, sulci, cisterns: Prominent secondary to involutional change. Intracranial vasculature: There is atherosclerotic calcification of the cavernous carotid and vertebral arteries. Calvarium: Unremarkable. Sinuses and mastoids: The visualized paranasal sinuses are clear. The mastoid air cells are well pneumatized. Orbits: The bony orbits are grossly intact. IMPRESSION: There is no hemorrhage, mass effect, or evidence of acute territorial ischemia by CT criteria. CXR: FINDINGS: Median sternotomy wires are unchanged. The cardiomediastinal silhouette is normal. The lungs are clear. No evidence of pleural effusion or pneumothorax. IMPRESSION: No acute abnormalities and in particular no radiographic evidence of pneumonia. Lower extremity CTA: VASCULATURE: Aorta: Severe calcified atherosclerotic disease tibioperoneal trunk. There is calcified atherosclerotic disease of aorta with no aneurysm. Right iliac arteries: Mild calcified atherosclerotic disease throughout the right external iliac artery with no significant stenosis. Right femoral/popliteal arteries: Scattered calcified atherosclerotic disease throughout the right superficial femoral artery, more severe distally. Cannot exclude areas of moderate to high-grade stenosis involving the distal superficial femoral artery. Severe atherosclerotic disease of the popliteal artery with areas of moderate to high-grade stenosis. Right calf/foot arteries: Severe disease through the right anterior tibial artery with multiple areas of high-grade stenosis in a short segment occlusions. Severe disease through the posterior tibial artery with multiple areas of high-grade stenosis and short segment occlusion. Distal reconstitution at the ankle noted. Moderate disease through the peroneal artery seen as a continuous vessel to the ankle. LOWER EXTREMITY: Bones/joints: There is a right-sided femoral line in place. Soft tissues: There is a large hematoma involving the medial aspect of the upper thigh measuring approximately 5.5 x 6.5 cm in axial dimension. Questionable heterogeneous density surrounding the right femur are concerning for second hematoma and measuring 5.7 x 5.5 cm in axial dimension. There is no evidence of active bleed. Bladder: Intrapelvic structures revealed borderline thickening of urinary bladder wall, cannot exclude cystitis. IMPRESSION: 1. Hematoma involving the medial and upper aspect of the right thigh and surrounding the mid cephalad femur. No evidence of active bleed. 2. Severe atherosclerotic disease involving the right lower extremity more significant through the distal superficial femoral and popliteal artery with areas of high-grade stenosis distally. 3. Severe disease through the trifurcation vessels with single vessel runoff through the peroneal artery. Multiple areas of high-grade stenosis or occlusions with the anterior tibial artery and posterior tibial artery as described. Humerus CT: FINDINGS: Heterotopic ossification is seen about the elbow. The joint spaces are maintained. No joint effusion is seen. Soft tissue edema is seen about the elbow and forearm without discrete drainable fluid collection. Atherosclerosis is noted. IMPRESSION: Soft tissue edema and heterotopic ossification. This may represent cellulitis, simple edema or contusion. No discrete fluid collection is seen. (1) Anemia Anemia type: unspecified type Qualified Code(s): D64.9 - Anemia, unspecified
--- NOTE | 2022-08-10 13:19 | Hospitalist Progress Note ---
Date of Service August 10, 2022 Assessment & Plan (1) Anemia: Plan: Admit to telemetry Patient presenting from home with reported increased lethargy. As an outpatient, patient has been noted to have a downtrending hemoglobin (11.5 --> 8.0 --> 9.1 --> 8.9 on 07/27). Patient was started on iron replacement. 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 Colonoscopy was considered however patient was felt to not likely be able to tolerate the prep. In the ED, Hgb 5.9. Patient hemodynamically stable. No obvious signs of GI bleeding at this time. Transfused 2 unit PRBC, trend H&H S/p Protonix bolus in the ED, continue IV PPI BID N.p.o. GI consult, Dr. Howell notified via [facility] text 08/10 Acute blood loss anemia, likely secondary to right thigh hematoma, spontaneous, in the setting of Lovenox and Plavix use Status posttransfusion of 4 units packed RBCs Hemoglobin improved from 5.[address] angiogram of the right lower extremity: No active bleeding noted Repeat H&H at 1 PM then every 6 hours Anemia panel ordered Rheumatology service consulted for spontaneous hematoma in the setting of Lovenox and Plavix Discussed at length with the GI service, according to them, inpatient colonoscopy not recommended at this point given absence of active rectal bleeding We will continue to monitor closely (2) Elevated troponin: (3) CAD (coronary artery disease): Plan: HS troponin 1100, no reports of chest pain EKG shows deep T wave inversions in the lateral leads, new from EKG 12/2021 however similar changes have been present on prior EKGs Likely due to demand ischemia in the setting of profound anemia Continue to trend troponin, check resting echo Continue beta-josé and statin, hold clopidogrel due to profound anemia/possible acute bleeding. ASA discontinued previously due to ongoing anemia. Cardiology consult, Dr. Pan notified by ED provider 08/10 Troponin levels appear flat, 1100, 1300, 1000 EKG: No signs of acute ischemia or infarct Echo 45 to 45%, mild apical wall hypokinesis Radiology service consulted-no further further interventions at this point (4) Type 2 diabetes mellitus: Plan: Hgb A1c 5.2 06/2022 Will hold Lantus due to recently reported hypoglycemia and n.p.o. status NovoLog per protocol Monitor BSG's closely (5) History of CVA (cerebrovascular accident): Plan: History of recurrent CVA despite DAPT and anticoagulation therapy Chronic right hemiplegia/left arm paralysis/mostly nonverbal/expressive aphasia Holding Plavix and Lovenox as above (6) H/O deep venous thrombosis: Plan: History of breakthrough DVT while on warfarin and Eliquis therapy, now on therapeutic dose Lovenox --holding as above (7) HTN (hypertension): Plan: Due to borderline low BP, will hold lisinopril (8) DVT prophylaxis: Plan: SCDs while holding Lovenox plan of care discussed with patient's Nasreen in detail and at length all questions answered understanding, agreeable, comfortable with the plan of care Admission and Anticipated Discharge Date Admission Date: August 09, 2022 Subjective Follow-up for acute blood loss anemia, etc. Events overnight noted Patient seen sitting up in bed, sleeping but easily awakened Answers with a few words, nods when asked questions Patient's at the bedside visiting States patient seems to be more alert today, and more interactive No signs of pain, shortness of breath No melena/hematochezia overnight No other new signs or symptoms noted Review of Systems Review of Systems: all noted and negative except for above Physical Exam Physical Exam: General-awake but appears drowsy/tired, not in distress, speaks in few words with no effort or accessory muscle use Eyes- anicteric Neck- no JVD Lungs- clear breath sounds bilaterally, no rales/wheezes Heart- normal rate, regular rhythm; no murmurs Abdomen- normal bowel sounds, nondistended, soft, nontender Extremities-right upper leg: Positive moderate edema, no erythema/warmth/tenderness/hematoma Right inguinal area: Positive for femoral catheter in place, no signs of hematoma Left upper leg: No edema noted Left upper extremity: Positive moderate edema No warmth, tenderness, erythema Right upper extremity: Sensory normal Neuro-no new gross focal neurologic deficits noted Skin- warm & dry Results & Data Results & Data ([facility]) Vital Signs (Past 12 Hours) Vital Signs Temp Pulse Pulse Resp BP BP Pulse Ox 08/10/22 12:00 36.5 C 79 18 122/68 08/10/22 08:00 36.5 C 88 16 114/74 97 08/10/22 06:10 36.6 C 82 20 103/66 98 08/10/22 05:31 36.6 C 73 20 102/64 99 08/10/22 04:31 36.5 C 75 18 98/61 L 99 08/10/22 03:28 36.6 C 82 16 94/58 L 99 08/10/22 03:17 36.7 C 86 18 98/63 L 100 08/10/22 04:30 36.5 C 78 20 98/61 L 99 08/10/22 04:01 36.8 C 80 20 96/60 L 98 08/10/22 03:46 36.7 C 82 24 100/63 99 08/10/22 02:15 37.5 C 85 24 99/61 L 99 08/10/22 01:45 37.1 C 87 24 99/62 L 98 08/10/22 01:31 76 08/10/22 01:30 36.7 C 87 18 99/63 L 99 O2 Del Method O2 Flow Rate 08/10/22 12:00 Room Air 08/10/22 08:00 Room Air 08/10/22 06:10 1 08/10/22 05:31 1 08/10/22 04:31 1 08/10/22 03:28 1 08/10/22 03:17 1 08/10/22 04:30 1 08/10/22 04:01 1 08/10/22 03:46 1 08/10/22 02:15 1 08/10/22 01:45 1 08/10/22 01:31 08/10/22 01:30 1 all noted and reviewed including below (1) Anemia Anemia type: unspecified type Qualified Code(s): D64.9 - Anemia, unspecified
[2022-08-10 13:27] LABS: Hematocrit (blood only) 32.4 % (42.0-52.0); Hemoglobin 10.6 g/dl (14.0-18.0)
[2022-08-10 13:55] LABS: Ferritin 256.6 ng/ml (8-388)
[2022-08-10] MEDS ORDERED: Nursing to Pharmacy Communication SCH (15:15)
--- NOTE | 2022-08-10 15:44 | Electrocardiogram Report ---
Test Reason : Blood Pressure : / mmHG Vent. Rate : 077 BPM Atrial Rate : 077 BPM P-R Int : 156 ms QRS Dur : 066 ms QT Int : 344 ms P-R-T Axes : 059 067 146 degrees QTc Int : 389 ms Normal sinus rhythm Left atrial enlargement Old Inferior infarct Possible Old Anterior infarct Chronic T-wave inversion in Lateral leads Abnormal ECG When compared with ECG of 09-AUG-2022 15:20, No significant change Confirmed by Jarrett Boston [id number] on 08/10/2022 3:44:33 PM Referred By: REFERRED SELF Confirmed By:Jarrett Boston
--- NOTE | 2022-08-10 15:45 | XRay Report ---
XR chest 1V portable CLINICAL HISTORY: r/o pneumonia,edema TECHNIQUE: Single frontal radiograph of the chest was obtained. Comparison: Comparison is made to chest radiograph 08/09/2022 FINDINGS: Median sternotomy wires are unchanged. Calcified aortic knob is seen. The lungs are clear. No evidenc e of pleural effusion or pneumothorax. IMPRESSION: No acute abnormalities and in particular no radiographic evidence of pneumonia. ACT 112: Negative or not required by law. Electronically signed by: Bradley Reeves M.D. 08/10/2022 3:43 PM
[2022-08-10 19:15] LABS: Hematocrit (blood only) 31.7 % (42.0-52.0); Hemoglobin 10.3 g/dl (14.0-18.0)
[2022-08-10] MEDS: ATORVASTATIN 40 MG TAB PO SCH (20:27)
[2022-08-10] MEDS: TAMSULOSIN HCL 0.4 MG CAP PO SCH (20:28)
[2022-08-10] MEDS: ACETAMINOPHEN 325 MG TAB PO PRN (21:25)
[2022-08-11] MEDS: INSULIN ASPART PER UNIT CHARGE SC SCH ×5 (00:03→21:13)
[2022-08-11 00:52] LABS: Appearance Urine Clear (Clear); Bacteria Urine Automated Negative (Negative); Bilirubin Urine Negative (Negative); Blood Urine Negative (Negative); Color Urine Orange; Epithelial Cell Urine Auto 0-5 /lpf (0-5); Glucose Urine UA Negative (Negative); Ketones Urine Trace (Negative); Leukocyte Esterase Urine 2+ (Negative); Nitrite Urine Positive (Negative); Protein Urine Trace (Negative); RBC Urine Automated 0-4 /hpf (0-4); Urobilinogen Urine Negative (Negative); WBC Urine Automated >30 /hpf (0-5); pH Urine 5.5 (4.5-7.5)
[2022-08-11] MEDS: D5W AND NSS 1,000 ML IV SCH ×2 (00:59→15:37)
[2022-08-11 01:18] LABS: Hematocrit (blood only) 37.4 % (42.0-52.0); Hemoglobin 12.1 g/dl (14.0-18.0)
[2022-08-11] MEDS ORDERED: ACETAMINOPHEN 1,000 MG/100 ML VIAL IV PRN (04:03)
--- NOTE | 2022-08-11 06:14 | Consultation ---
Date of Consultation August 11, 2022 Assessment & Plan (1) Anemia: Acute drop in hemoglobin most proximately related to bleeding into a large hematoma in the right lower extremity though superimposed on apparent history of iron deficiency anemia with suggestions of long-term low-level GI losses. Previous EGD was unremarkable, patient was not able to do the prep for colonoscopy. Hemoglobin has recovered to double digits with transfusion indicating that there is no significant element of hemolysis and as well suggesting that the bleeding has stabilized. Ferritin is well above 200 and although there can be an element of acute phase reactant associated with that, his transfusions supplied him with an additional 800 mg of iron equivalent so at this point is not clear that he acutely needs further intravenous iron though his iron levels will need to be monitored ongoing as there will likely be persistent low-level GI losses and recurring issues of iron deficiency ongoing especially if/as he resumes antiplatelet and/or anticoagulation. B12 is in good range, will empirically supplement with folic acid 1 mg daily. (2) Hematoma of right thigh: Was at ongoing risk for bleeding not just in the leg but elsewhere given the aggressive combination of anticoagulation and antiplatelet therapy. Unfortunately, there is a dilemma of his risk for additional thrombotic events both cerebrovascular and deep venous without ongoing anti-thrombotic therapy. His indicates that we should be taking an aggressive approach overall to his care. Please see discussion within deep venous thrombosis of resumption of his anticoagulation. (3) H/O deep venous thrombosis: Apparent recurrent episodes of deep venous thrombosis which persisted despite previous warfarin and apixaban. On that basis he has been on enoxaparin since January,. This is followed by the [facility] anticoagulation clinic and according to his his dose has been 120 mg twice daily. By her description they have been checking blood work 4 hours after dose suggesting that the dosing is based on anti-Xa levels but it certainly is numerically aggressive compared to his weight of 80 kg. Furthermore, concomitant use of antiplatelet therapy even streamlining to clopidogrel alone further exacerbates his bleeding risk. If his hemoglobin levels remain stable and clinically the hematoma is felt to be stable, need to confirm the judgment that anticoagulation is worthwhile even w ith ongoing bleeding risk and if so would suggest a gradual resumption approach of 40 mg subcutaneously today, 40 mg twice daily tomorrow, and if no signs of new GI or other bleeding with that could consider gradually return to doses as dictated by the anticoagulation clinic in [facility]. Shared decision making will have to be through his who is his primary caregiver and the one who is guiding his care overall (4) History of CVA (cerebrovascular accident): Recurrent CVAs have left him with bilateral significant muscular dysfunction and what appears to be at least an expressive aphasia. Between his cerebrovascular and cardiac issues, antiplatelet therapy is obviously of potential importance but unfortunately now the major bleeding episode demonstrates the risk involved. Again, in shared decision making with we will have to determine whether we return to the "full" regimen of standard dose enoxaparin plus clopidogrel and if so recognize that he will be at ongoing risk for new bleeding episodes (5) Bony sclerosis: Incidental note of bony sclerosis in the pelvis. In the larger context its not clear that an aggressive work-up for prostate or other carcinoma will be meaningful at this time though can continue to discuss that with his . Plan Primary challenge is determining the overall level of aggression of care. I spoke at length with his and she certainly seems to have considered this at length and feels that he continues to enjoy sufficient quality of life even with his major neurological limitations to justify an ongoing aggressive approach If it is felt that he is showing no active bleeding could gradually reintroduce anticoagulation initially with a single dose of enoxaparin 40 mg subcutaneously today, transition to 40 mg twice daily tomorrow, and if he remains stable further increases thereafter probably guided in large part by the [facility] anticoagulation clinic I will try to speak with him today about the long-term strategy may need to reconsider target doses in a more moderate range I would defer to neurology, cardiology, and the hospitalist service as to the concomitant reintroduction of antiplatelet therapy but even before this episode there have been some concerns of occult GI losses and especially with combination antiplatelet and anticoagulation therapy there could be life- threatening dangers recurrent bleeding risk. However, given his recurrent venous thrombosis and recurrent arterial thrombosis issues, to not return to that combination will certainly increase the risk of recurrent thrombotic issues which themselves could be life-threatening. Overall it will be very important to continue an active shared decision making with his particular in the context of what is certainly a compromised performance status. I plan to meet with her to discuss the situation for this evening We will empirically supplement folic acid. At this time do not think he immediately needs further intravenous iron though expect that he will have recurrent iron issues ongoing and thus continuous monitoring may indicate future need History of Present Illness Reason for Consultation: Acute blood loss anemia due to right thigh hemorrhage and patient on long-term combination antiplatelet therapy and anticoagulation for recurrent CVA and CAD issues. Attending Physician: Rigo Roa MD History of Present Illness Please see extensive documentation in the hospitalist and cardiology consultations. Patient has a significant of atherosclerosis. He has a particular history of coronary artery disease status post previous myocardial infarction with chronic apical anterior LV wall dysfunction. He is required multiple stents, has severe aortic valve stenosis and also severe carotid occlusive disease. He had been chronically on dual antiplatelet therapy after multiple prior strokes. In addition he has had recurrent DVT which broke through previous warfarin and apixaban therapy. On that basis during January, to admission he was switched to long-term enoxaparin. This is apparently managed by the [facility] anticoagulation clinic and his current dose according to his is 120 mg subcutaneously twice daily. We do note additionally that there is a history of iron deficiency anemia. EGD in December 2021 was unremarkable but he was not felt well enough to proceed with colonoscopy. He has multiple strokes of left him with a combination of right hemiparesis and left arm dysfunction and he is nonverbal. His is his primary caregiver, however, and she feels that he does enjoy some reasonable quality of life and on his behalf feels that he should continue with aggressive therapy We do not because of recurring anemia problems, aspirin have been discontinued in the fall and he continued on the combination of Plavix and enoxaparin. He presented with acute severe anemia hemoglobin less than 6 g/dL and ultimately imaging has shown a right thigh hemorrhage. Clopidogrel and enoxaparin are currently on hold Allergies Allergy/AdvReac Type Severity Reaction Status Date / Time No Known Allergies Allergy Verified 08/09/22 15:58 Home Medications Medication Instructions Recorded Confirmed Type nitroglycerin 0.4 mg sublingual 0.4 mg sublingual DIRECTED PRN 08/09/19 08/09/22 History tablet Chest Pain baclofen 5 mg tablet 5 mg PO QAM #30 tabs 09/22/20 08/09/22 Rx carvedilol 12.5 mg tablet 12.5 mg PO BID #60 tabs 09/22/20 08/09/22 Rx clopidogrel 75 mg tablet (Plavix) 75 mg PO QAM #30 tabs 09/22/20 08/09/22 Rx insulin glargine 100 unit/mL See Rx Instructions .Route 09/22/20 08/09/22 Rx subcutaneous solution (Lantus .COMPLEX #10 mL U-100 Insulin) insulin aspart U-100 100 unit/mL 10 unit subcut AC 01/11/21 08/09/22 History subcutaneous solution (Novolog U-100 Insulin aspart) tamsulosin 0.4 mg capsule 0.4 mg PO HS 01/11/21 08/09/22 History atorvastatin 80 mg tablet 80 mg PO QPM 05/17/21 08/09/22 History ferrous sulfate 325 mg (65 mg 325 mg PO QAM #30 tabs 01/15/22 08/09/22 Rx iron) tablet,delayed release enoxaparin 120 mg/0.8 mL 120 mg subcut BID 08/09/22 08/09/22 History subcutaneous syringe lisinopril 5 mg tablet 5 mg PO QAM 08/09/22 08/09/22 History Patient History Medical History Aortic valve stenosis BPH with obstruction/lower urinary tract symptoms CAD (coronary artery disease) 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 in the setting of diabetes for which patient initially underwent off pump 3 vessel coronary artery bypass grafting in 2006 with DUARTE to LAD, SVG to circumflex and SVG to PDA Bare metal stent to protected left main coronary artery 08/13/2015 PCI drug-eluting stent to the saphenous vein graft to RPDA 04/17/2014 PCI, drug-eluting stent to the ostial portion of the SVG to RCA 12/04/2014 for severe in stent restenosis Carotid stenosis Diabetic peripheral neuropathy associated with type 2 diabetes mellitus Dyslipidemia H/O deep venous thrombosis Hemiplegia affecting right dominant side History of CVA (cerebrovascular accident) History of pancreatitis HTN (hypertension) Hypomagnesemia Monoplegia affecting right dominant side Obesity Osteomyelitis of great toe of right foot Proliferative diabetic retinopathy Retinal edema Right foot drop Status post administration of all doses of COVID-19 vaccine series Status post cerebrovascular accident Status post myocardial infarction Superior mesenteric artery stenosis Type 2 diabetes mellitus Surgical History Hx of vitrectomy S/P angioplasty with stent S/P CABG x 3 S/P PTCA (percutaneous transluminal coronary angioplasty) Family History Father Heart disease Social History Smoking Status: Former smoker Tobacco Type: Cigarettes Second Hand Exposure: No; Do You Dip or Chew Tobacco: No; Tobacco Cessation Education Requested by Patient: No Hx Alcohol Use: No Hx Substance Use: No Preferred Language: Tanzanian Communication Ability: Impaired Visual Impairment: No Limitations Hearing Ability: Normal Machine Sorter Required: No Beliefs That Will Affect Care: None marital status: Current Living Situation: Spouse Current Living Situation Comment: Lives with in a split level home but he is in basement current occupational status: disabled Other Information That Helps Us Care for You: No Feels Safe at Home: Yes Safety Concerns: Feels Safe At This Time Assistive Devices: Hospital Bed Physical Exam Physical Exam: Vital signs are currently stable Patient is lying in bed and does not appear uncomfortable. He opens his eyes and tracks but does not respond to command and does not respond verbally to questions. Results & Data ([facility]) Vital Signs (Past 12 Hours) Vital Signs Temp Pulse Pulse Resp BP Pulse Ox Pulse Ox 08/11/22 02:58 37.7 C H 94 H 20 112/58 L 94 08/10/22 20:00 08/11/22 00:00 80 08/10/22 20:06 94 08/10/22 23:00 36.5 C 79 20 111/66 90 08/10/22 21:23 37.4 C 08/10/22 19:23 37.0 C 88 16 112/62 96 O2 Del Method O2 Del Method O2 Flow Rate O2 Flow Rate 08/11/22 02:58 Room Air 08/10/22 20:00 Nasal Cannula 1 08/11/22 00:00 08/10/22 20:06 Nasal Cannula 1 08/10/22 23:00 Room Air 08/10/22 21:23 08/10/22 19:23 Room Air Laboratory Results Laboratory Results - last 24 hr 08/10/22 08/10/22 08/10/22 07:22 07:31 07:31 WBC 7.72 RBC 4.11 L Hgb 10.5 L D Hct 32.3 L MCV 78.6 L MCH 25.5 MCHC 32.5 D RDW Std Deviation 50.3 H RDW Coeff of Caroline 17.8 H Plt Count 295 MPV 9.8 Immature Gran % (Auto) 0.6 Neut % (Auto) 76.0 Lymph % (Auto) 14.5 [place] % (Auto) 8.0 Eos % (Auto) 0.5 Baso % (Auto) 0.4 Neut # (Auto) 5.86 Lymph # (Auto) 1.12 L [place] # (Auto) 0.62 H Eos # (Auto) 0.04 Baso # (Auto) 0.03 Immature Gran # (Auto) 0.05 Sodium 132 L Potassium 4.5 Chloride 104 Carbon Dioxide 24 Anion Gap 4 BUN 13 Creatinine 0.43 L Est Cr Clr Drug Dosing 184.8 Est GFR ( Amer) 141.2 Est GFR (Non-Af Amer) 121.9 BUN/Creatinine Ratio 30.2 H Glucose 158 H POC Glucose 166 H Calcium 7.9 L Phosphorus 3.2 Magnesium 1.7 Iron Transferrin Ferritin Troponin I High Sens 1008.3 H* D Vitamin B12 Urine Color Urine Appearance Urine pH Ur Specific [place] Urine Protein Urine Glucose (UA) Urine Ketones Urine Blood Urine Nitrite Urine Bilirubin Urine Urobilinogen Ur Leukocyte Esterase Urine WBC (Auto) Urine RBC (Auto) U Hyaline Cast (Auto) U Epithel Cells (Auto) Urine Bacteria (Auto) Urine Yeast 08/10/22 08/10/22 08/10/22 11:57 12:50 12:50 WBC RBC Hgb 10.6 L Hct 32.4 L MCV MCH MCHC RDW Std Deviation RDW Coeff of Caroline Plt Count MPV Immature Gran % (Auto) Neut % (Auto) Lymph % (Auto) [place] % (Auto) Eos % (Auto) Baso % (Auto) Neut # (Auto) Lymph # (Auto) [place] # (Auto) Eos # (Auto) Baso # (Auto) Immature Gran # (Auto) Sodium Potassium Chloride Carbon Dioxide Anion Gap BUN Creatinine Est Cr Clr Drug Dosing Est GFR ( Amer) Est GFR (Non-Af Amer) BUN/Creatinine Ratio Glucose POC Glucose 180 H Calcium Phosphorus Magnesium Iron 62 Transferrin 161 L Ferritin 256.6 Troponin I High Sens Vitamin B12 Urine Color Urine Appearance Urine pH Ur Specific [place] Urine Protein Urine Glucose (UA) Urine Ketones Urine Blood Urine Nitrite Urine Bilirubin Urine Urobilinogen Ur Leukocyte Esterase Urine WBC (Auto) Urine RBC (Auto) U Hyaline Cast (Auto) U Epithel Cells (Auto) Urine Bacteria (Auto) Urine Yeast 08/10/22 08/10/22 08/10/22 12:50 17:58 18:39 WBC RBC Hgb 10.3 L Hct 31.7 L MCV MCH MCHC RDW Std Deviation RDW Coeff of Caroline Plt Count MPV Immature Gran % (Auto) Neut % (Auto) Lymph % (Auto) [place] % (Auto) Eos % (Auto) Baso % (Auto) Neut # (Auto) Lymph # (Auto) [place] # (Auto) Eos # (Auto) Baso # (Auto) Immature Gran # (Auto) Sodium Potassium Chloride Carbon Dioxide Anion Gap BUN Creatinine Est Cr Clr Drug Dosing Est GFR ( Amer) Est GFR (Non-Af Amer) BUN/Creatinine Ratio Glucose POC Glucose 163 H Calcium Phosphorus Magnesium Iron Transferrin Ferritin Troponin I High Sens Vitamin B12 436 Urine Color Urine Appearance Urine pH Ur Specific [place] Urine Protein Urine Glucose (UA) Urine Ketones Urine Blood Urine Nitrite Urine Bilirubin Urine Urobilinogen Ur Leukocyte Esterase Urine WBC (Auto) Urine RBC (Auto) U Hyaline Cast (Auto) U Epithel Cells (Auto) Urine Bacteria (Auto) Urine Yeast 08/11/22 08/11/22 00:41 01:09 WBC RBC Hgb 12.1 L Hct 37.4 L MCV MCH MCHC RDW Std Deviation RDW Coeff of Caroline Plt Count MPV Immature Gran % (Auto) Neut % (Auto) Lymph % (Auto) [place] % (Auto) Eos % (Auto) Baso % (Auto) Neut # (Auto) Lymph # (Auto) [place] # (Auto) Eos # (Auto) Baso # (Auto) Immature Gran # (Auto) Sodium Potassium Chloride Carbon Dioxide Anion Gap BUN Creatinine Est Cr Clr Drug Dosing Est GFR ( Amer) Est GFR (Non-Af Amer) BUN/Creatinine Ratio Glucose POC Glucose Calcium Phosphorus Magnesium Iron Transferrin Ferritin Troponin I High Sens Vitamin B12 Urine Color [place] Urine Appearance Clear Urine pH 5.5 Ur Specific [place]ubert 1.040 H Urine Protein Trace H Urine Glucose (UA) Negative Urine Ketones Trace H Urine Blood Negative Urine Nitrite Positive A Urine Bilirubin Negative Urine Urobilinogen Negative Ur Leukocyte Esterase 2+ H Urine WBC (Auto) >30 H Urine RBC (Auto) 0-4 U Hyaline Cast (Auto) 1-5 U Epithel Cells (Auto) 0-5 Urine Bacteria (Auto) Negative Urine Yeast Not Reportable Diagnostic Findings Chest X-Ray 08/09/22 12:34 XR chest 1V portable CLINICAL HISTORY: Sepsis TECHNIQUE: Single frontal radiograph of the chest was obtained. Comparison: Comparison is made to chest radiograph 12/17/2021 FINDINGS: Median sternotomy wires are unchanged. The cardiomediastinal silhouette is normal. The lungs are clear. No evidence of pleural effusion or pneumothorax. IMPRESSION: No acute abnormalities and in particular no radiographic evidence of pneumonia. ACT 112: Negative or not required by law. Electronically signed by: Bradley Reeves M.D. 08/09/2022 12:[address] 08/09/22 12:34 CT SCAN OF THE BRAIN WITHOUT IV CONTRAST CLINICAL HISTORY: Lethargy. COMPARISON STUDY: CT of the brain dated 08/20/2021. TECHNIQUE: Unenhanced axial CT scan of the brain is performed from the vertex to the skull base. A dose lowering technique was utilized adhering to the principles of ALARA. CT DOSE: 614.27 mGy.cm FINDINGS: Brain parenchyma: There is age-advanced involutional change noting advanced confluent subcortical and periventricular microangiopathic disease. There is no hemorrhage, mass effect, or evidence of acute territorial ischemia by CT criteria. A small chronic infarct is noted in the high right parietal lobe. Rose-white matter differentiation is preserved. No extra-axial fluid collection is seen. Ventricles, sulci, cisterns: Prominent secondary to involutional change. Intracranial vasculature: There is atherosclerotic calcification of the cavernous carotid and vertebral arteries. Calvarium: Unremarkable. Sinuses and mastoids: The visualized paranasal sinuses are clear. The mastoid air cells are well pneumatized. Orbits: The bony orbits are grossly intact. IMPRESSION: There is no hemorrhage, mass effect, or evidence of acute territorial ischemia by CT criteria. ACT 112: Negative or not required by law. Electronically signed by: Donny Fernando M.D. 08/09/2022 3:38 PM Abdomen/Pelvis CT 08/10/22 00:22 CR Exam(s): CT ABDOMEN + PELVIS Without Contrast EXAM: CT Abdomen and Pelvis Without Intravenous Contrast CLINICAL HISTORY: Reason for exam: anemia. any bleeding?. TECHNIQUE: Axial computed tomography images of the abdomen and pelvis without intravenous contrast. CTDI is 16.7 mGy and DLP is 945.35 mGy-cm. Automated exposure control was utilized for the study. A dose lowering technique was utilized adhering to the principles of ALARA. COMPARISON: CT Abdomen Pelvis dated 03/18/2020 FINDINGS: Artifacts: Artifact in the upper abdomen from patient's arms. Lung bases: See below. Pleural space: Small bilateral pleural effusions greater on the left. Mild bibasilar atelectasis. Heart: Marked coronary artery calcifications. ABDOMEN: Liver: Unremarkable. Gallbladder and bile ducts: Unremarkable. No calcified stones. No ductal dilation. Pancreas: Unremarkable. No ductal dilation. Spleen: Unremarkable. No splenomegaly. Adrenals: Nodular adrenal glands, similar to the prior. Kidneys and ureters: Left renal low-density lesion better seen on the prior. No obstructing stones. No hydronephrosis. Stomach and bowel: Large amount of stool within distended rectum. No mucosal thickening. No bowel obstruction. PELVIS: Appendix: No findings to suggest acute appendicitis. Bladder: Bladder wall thickening of partially distended bladder. No stones. Reproductive: Unremarkable as visualized. ABDOMEN and PELVIS: Intraperitoneal space: See above. Bones/joints: Median sternotomy wires. Minimal sclerosis of the left inferior pubic ramus, new since the prior. Soft tissues: Enlarged right abductor musculature which appears hyperdense. Partially visualized on the inferior most images. Approximately 5 cm in transverse dimension. Dystrophic soft tissue calcifications/heterotopic ossification bilaterally in the musculature between the inferior pubic rami and proximal femurs. Chronic appearance although new since the prior study. Partially visualized. Anasarca. Soft tissue calcifications noted in the left forearm soft tissues, partially visualized. Vasculature: Marked diffuse atherosclerotic calcifications. Lymph nodes: Unremarkable. No enlarged lymph nodes. Tubes, lines and devices: Right this catheter with the tip in the right common iliac vein. IMPRESSION: 1. Enlarged right abductor musculature which appears hyperdense. Partially visualized on the inferior most images. Likely represents hematoma, approximately 5 cm in transverse dimension. Active bleeding or underlying lesion not excluded. 2. Large amount of stool within distended rectum. 3. Bladder wall thickening of partially distended bladder. May reflect cystitis or chronic bladder obstruction. 4. Dystrophic soft tissue calcifications/heterotopic ossification bilaterally in the musculature between the inferior pubic rami and proximal femurs. Chronic appearance although new since the prior study. Partially visualized. 5. Minimal sclerosis of the left inferior pubic ramus, new since the prior. Nonspecific. Correlate for infectious/inflammatory or neoplastic process. 6. Anasarca. 7. Small bilateral pleural effusions greater on the left. Mild bibasilar atelectasis. Communications: Verify Receipt Call Doctor Above results Electronically signed by: Thiago Wheeler M.D. 08/10/22 02:28 AM Lower Extremity CTA 08/10/22 02:42 Exam(s): CTA EXTREMITY RIGHT LOWER W/WO Contrast IV Amt: 105 ml optiray 320 EXAM: CT Angiography of the Right Lower Extremity With Intravenous Contrast CLINICAL HISTORY: Reason for exam: right thigh hematoma. active bleeding?. TECHNIQUE: Axial computed tomographic angiography images of the right lower extremity with intravenous contrast. CTDI is 49.29 mGy and DLP is 1250.2 mGy-cm. Automated exposure control was utilized for the study. A dose lowering technique was utilized adhering to the principles of ALARA. MIP reconstructed images were created and reviewed. CONTRAST: Patient received 105 ml optiray 320 of IV contrast COMPARISON: None. FINDINGS: VASCULATURE: Aorta: Severe calcified atherosclerotic disease tibioperoneal trunk. There is calcified atherosclerotic disease of aorta with no aneurysm. Right iliac arteries: Mild calcified atherosclerotic disease throughout the right external iliac artery with no significant stenosis. Right femoral/popliteal arteries: Scattered calcified atherosclerotic disease throughout the right superficial femoral artery, more severe distally. Cannot exclude areas of moderate to high-grade stenosis involving the distal superficial femoral artery. Severe atherosclerotic disease of the popliteal artery with areas of moderate to high-grade stenosis. Right calf/foot arteries: Severe disease through the right anterior tibial artery with multiple areas of high-grade stenosis in a short segment occlusions. Severe disease through the posterior tibial artery with multiple areas of high-grade stenosis and short segment occlusion. Distal reconstitution at the ankle noted. Moderate disease through the peroneal artery seen as a continuous vessel to the ankle. LOWER EXTREMITY: Bones/joints: There is a right-sided femoral line in place. Soft tissues: There is a large hematoma involving the medial aspect of the upper thigh measuring approximately 5.5 x 6.5 cm in axial dimension. Questionable heterogeneous density surrounding the right femur are concerning for second hematoma and measuring 5.7 x 5.5 cm in axial dimension. There is no evidence of active bleed. Bladder: Intrapelvic structures revealed borderline thickening of urinary bladder wall, cannot exclude cystitis. IMPRESSION: 1. Hematoma involving the medial and upper aspect of the right thigh and surrounding the mid cephalad femur. No evidence of active bleed. 2. Severe atherosclerotic disease involving the right lower extremity more significant through the distal superficial femoral and popliteal artery with areas of high-grade stenosis distally. 3. Severe disease through the trifurcation vessels with single vessel runoff through the peroneal artery. Multiple areas of high-grade stenosis or occlusions with the anterior tibial artery and posterior tibial artery as described. Electronically signed by: Merline Macias MD 08/10/22 05:[address] 08/10/22 09:47 CT forearm LT wo con, CT humerus LT wo con CLINICAL HISTORY: edema, r/o hematoma TECHNIQUE: Multidetector row helical CT of the left forearm and left humerus was performed without intravenous contrast. Coronal and sagittal reformations were obtained. Automated dose lowering techniques and/or adjustment according to patient size were utilized for this examination. Comparison: None available at the time of this dictation. FINDINGS: Heterotopic ossification is seen about the elbow. The joint spaces are maintained. No joint effusion is seen. Soft tissue edema is seen about the elbow and forearm without discrete drainable fluid collection. Atherosclerosis is noted. IMPRESSION: Soft tissue edema and heterotopic ossification. This may represent cellulitis, simple edema or contusion. No discrete fluid collection is seen. ACT 112: Negative or not required by law. Electronically signed by: Bradley Reeves M.D. 08/10/2022 11:[address] 08/10/22 09:47 CT forearm LT wo con, CT humerus LT wo con CLINICAL HISTORY: edema, r/o hematoma TECHNIQUE: Multidetector row helical CT of the left forearm and left humerus was performed without intravenous contrast. Coronal and sagittal reformations were obtained. Automated dose lowering techniques and/or adjustment according to patient size were utilized for this examination. Comparison: None available at the time of this dictation. FINDINGS: Heterotopic ossification is seen about the elbow. The joint spaces are maintained. No joint effusion is seen. Soft tissue edema is seen about the elbow and forearm without discrete drainable fluid collection. Atherosclerosis is noted. IMPRESSION: Soft tissue edema and heterotopic ossification. This may represent cellulitis, simple edema or contusion. No discrete fluid collection is seen. ACT 112: Negative or not required by law. Electronically signed by: Bradley Reeves M.D. 08/10/2022 11:42 AM Chest X-Ray 08/10/22 13:38 XR chest 1V portable CLINICAL HISTORY: r/o pneumonia,edema TECHNIQUE: Single frontal radiograph of the chest was obtained. Comparison: Comparison is made to chest radiograph 08/09/2022 FINDINGS: Median sternotomy wires are unchanged. Calcified aortic knob is seen. The lungs are clear. No evidence of pleural effusion or pneumothorax. IMPRESSION: No acute abnormalities and in particular no radiographic evidence of pneumonia. ACT 112: Negative or not required by law. Electronically signed by: Bradley Reeves M.D. 08/10/2022 3:43 PM PG Care Time/CCT Total # of Minutes Spent Total Time Spent with Patient: Total time spent is greater than 50% in coordination of care (as documented) at patient's floor/unit and/or counseling patient: Coding Level of Care Code 77871 IN/OBS CONSULT LVL 4,60M Diagnoses Anemia D64.9 Anemia type: unspecified type Hematoma of right thigh S70.11XA H/O deep venous thrombosis Z86.718 History of CVA (cerebrovascular accident) Z86.73 Bony sclerosis Q78.2 (1) Anemia Anemia type: unspecified type Qualified Code(s): D64.9 - Anemia, unspecified
[2022-08-11] MEDS: PANTOprazole 40 MG in SYRINGE 0 ML IV SCH ×2 (07:24→21:09)
[2022-08-11 08:00] LABS: Hematocrit (blood only) 33.2 % (42.0-52.0); Hemoglobin 10.7 g/dl (14.0-18.0)
[2022-08-11] MEDS ORDERED: ENOXAPARIN INJ 40 MG/0.4 ML SYR SQ ONE (10:00)
[2022-08-11] MEDS: carvediloL 12.5 MG TAB PO SCH ×2 (10:23→21:10)
[2022-08-11] MEDS: BACLOFEN 10 MG TAB PO SCH (10:23)
[2022-08-11] MEDS: FERROUS SULFATE 325 MG TAB PO SCH (10:23)
[2022-08-11 10:30] LABS: BUN Creatinine Ratio 31.4 (10-20); Creatinine Clr Calc Pharmacy 155.8 ml/min; Est GFR (African American) 131.7 ml/min; Est GFR (Non-African American) 113.6 ml/min; Potassium 4.1 mmol/L (3.5-5.1)
[2022-08-11] MEDS: cefTRIAXone SODIUM 2,000 MG in DEXTROSE 5% 50 ML IV SCH (11:32)
--- NOTE | 2022-08-11 11:44 | Cardiology Progress Note ---
Date of Service August 11, 2022 Assessment & Plan (1) Hematoma of right thigh: (2) H/O deep venous thrombosis: (3) Anemia: (4) Elevated troponin: (5) Aortic stenosis: (6) History of CVA (cerebrovascular accident): (7) CAD (coronary artery disease): Plan Complex 62 year old male admitted with worsening lethargy. Cardiology consultation requested due to elevated troponin I levels representing demand ischemia in the setting of profound anemia (Hgb 5.9 g/dL). Patient with known d iffuse aggressive premature atherosclerotic cardiovascular disease - bilateral carotid artery disease, multivessel coronary artery disease, shaggy aorta, lower extremity peripheral artery disease, multiple recurrent strokes as well as right lower extremity DVT despite therapeutic anticoagulation. Resting echocardiography with severe valvular heart disease, now with mild reduction in LV systolic function. Volume status is compensated. Patient maintaining sinus rhythm. Recommend ongoing conservative cardiac medical management. Continue beta-josé and statin. Resume antiplatelet (Plavix) and anticoagulation (Lovenox) as soon as determined to be safe. Please contact with any questions or concerns. Admission and Anticipated Discharge Date Admission Date: August 09, 2022 Supervising Physician Co-Signing Physician Notes I have reviewed the advance practitioner documentation and agree. I saw and evaluated the patient on the date of service referenced in the note and have performed a medically appropriate history and or exam. I agree with conservative management for this unfortunate man who has early aggressive arteriosclerotic vascular disease. Cardiology will sign off. Please reconsult if necessary. Subjective Patient seen and examined around 8:30 AM this morning. Chart, medications, and telemetry reviewed. not present at bedside. No chest pain or worsening dyspnea. Hemoglobin 10.7 g/dL this AM. Hyponatremia improved. Telemetry: Sinus rhythm, currently in the 80's. August 10, 2022 TTE Interpretation Summary ([facility], Dr. Pan): Severe concentric LVH. Mildly reduced systolic function, EF 40-45%. Mild apical wall hypokinesis. Normal RV systolic function. Moderately dilated LA. Normal RA. Severe calcific aortic stenosis. Moderate mitral regurgitation, severe mitral annular calcification. Mild to moderate TR. Aortic boris sclerosis/calcification. Review of Systems Review of Systems: A complete and accurate review of systems was unable to be obtained from the patient. Physical Exam Physical Exam: General: NAD. HENT: Normocephalic. Atraumatic. Eyes: PER. Conjunctiva pink, sclera pale. Neck: Carotid bruits bilaterally. Neck veins are flat. Heart: Regular at 80 bpm. Grade III/ systolic ejection murmur of aortic stenosis. Lungs: Diminished. Decreased. No wheeze. Abdomen: +BS. Soft. Nontender. No masses or organomegaly. Extremities: + Left upper extremity swelling appears better today. No clubbing. No cyanosis. No significant lower extremity edema. Compression stockings in place. Pulses: radial=1/4, posterior tibial=0/4. Results & Data ([facility]) Vital Signs (Past 12 Hours) Vital Signs Temp Pulse Pulse Resp BP Pulse Ox O2 Del Method 08/11/22 08:35 89 08/11/22 07:29 37.2 C 87 16 119/72 95 Room Air 08/11/22 02:58 37.7 C H 94 H 20 112/58 L 94 Room Air 08/11/22 00:00 80 Laboratory Results CBC 08/10/22 08/10/22 08/11/22 Range/Units 12:50 18:39 01:09 Hgb 10.6 L 10.3 L 12.1 L (14.0-18.0) g/dl Hct 32.4 L 31.7 L 37.4 L (42.0-52.0) % 08/11/22 Range/Units 07:36 Hgb 10.7 L (14.0-18.0) g/dl Hct 33.2 L (42.0-52.0) % Comprehensive Metabolic Panel 08/11/22 Range/Units 07:37 Sodium 135 L (136-145) mmol/L Potassium 4.1 (3.5-5.1) mmol/L Chloride 107 (98-107) mmol/L Carbon Dioxide 23 (21-32) mmol/L BUN 16 (6-23) mg/dl Creatinine 0.51 L (0.6-1.4) mg/dl Glucose 200 H (70-99(Fasting)) mg/dl Calcium 8.0 L (8.5-10.1) mg/dl Intake and Output 08/10/22 08/11/22 08/11/22 22:59 06:59 14:59 Intake Total 994 / 994 Output Total 750 / 850 100 / 850 Balance -750 / 144 894 / 144 Intake: IV 994 / 994 Acetaminophen 1,000 mg In 100 100 / 100 ml @ 400 mls/hr IV Q8H PRN Rx#: [id number] D5w and Nss 1,000 ml @ 60 mls/ 894 / 894 hr IV .[id number] SUMA Rx#:[id number] Output: Urine Amount (Catheter) 750 / 850 100 / 850 External 750 / 750 Straight 100 / 100 # Bowel Movements 0 / 0 Other: Other Intake Source sips w/meds Weight 80.6 kg 80.9 kg Weight Measurement Method Built in [facility] (3) Anemia Anemia type: unspecified type Qualified Code(s): D64.9 - Anemia, unspecified
--- NOTE | 2022-08-11 14:49 | Surgery Progress Note ---
Date of Service August 11, 2022 Assessment & Plan (1) Hematoma of right thigh: Plan: pt is a 62 year-=old male who was admitted to hospital for right thigh hematoma drip H/H, HCT 5.9 IMP; right thigh hematoma, Plan, base on significant co-morbilities , recommend to transfer higher level care, [facility] or [facility]. D/W Dr. Torres. blood transfusion. monitor H/H. 08/11/2022 2:47PM F/U right thigh hematoma, stable, continue conservative treatment, no surgery indication now, sign off today, please call us with questions, thanks, Admission and Anticipated Discharge Date Admission Date: August 09, 2022 Supervising Physician Co-Signing Physician Notes I have reviewed the advance practitioner documentation and agree. I saw and evaluated the patient on the date of service referenced in the note and have performed a medically appropriate history and or exam. I agree with conserva tive management for this unfortunate man who has early aggressive arteriosclerotic vascular disease. Cardiology will sign off. Please reconsult if necessary. Subjective Patient seen and examined around 8:30 AM this morning. Chart, medications, and telemetry reviewed. not present at bedside. No chest pain or worsening dyspnea. Hemoglobin 10.7 g/dL this AM. Hyponatremia improved. Telemetry: Sinus rhythm, currently in the 80's. August 10, 2022 TTE Interpretation Summary ([facility], Dr. Pan): Severe concentric LVH. Mildly reduced systolic function, EF 40-45%. Mild apical wall hypokinesis. Normal RV systolic function. Moderately dilated LA. Normal RA. Severe calcific aortic stenosis. Moderate mitral regurgitation, severe mitral annular calcification. Mild to moderate TR. Aortic boris sclerosis/calcification. 08/11/2022 2:45 PM, DR. Chowdhury F/U right thigh hematoma, pt is stable, no fever. Physical Exam Neck: trachea midline, no thyromegaly Respiratory: normal respiratory effort, lungs clear to auscultation Cardiovascular: Rate/Rhythm: + irregularly irregular Musculoskeletal: no increase on right thigh hematoma, Results & Data ([facility]) Vital Signs (Past 12 Hours) Vital Signs Temp Pulse Pulse Resp BP Pulse Ox O2 Del Method 08/11/22 12:01 36.8 C 85 18 125/69 95 Room Air 08/11/22 08:35 89 08/11/22 07:29 37.2 C 87 16 119/72 95 Room Air 08/11/22 02:58 37.7 C H 94 H 20 112/58 L 94 Room Air Laboratory Results Abnormal lab results 08/10/22 08/10/22 08/11/22 Range/Units 17:58 18:39 00:41 Hgb 10.3 L (14.0-18.0) g/dl Hct 31.7 L (42.0-52.0) % Sodium (136-145) mmol/L Creatinine (0.6-1.4) mg/dl BUN/Creatinine Ratio (10-20) Glucose (70-99(Fasting)) mg/dl POC Glucose 163 H (70-99) mg/dl Calcium (8.5-10.1) mg/dl Ur Specific [place] 1.040 H (1.000-1.030) Urine Protein Trace H (Negative) Urine Ketones Trace H (Negative) Urine Nitrite Positive A (Negative) Ur Leukocyte Esterase 2+ H (Negative) Urine WBC (Auto) >30 H (0-5) /hpf 08/11/22 08/11/22 08/11/22 Range/Units 01:09 07:36 07:37 Hgb 12.1 L 10.7 L (14.0-18.0) g/dl Hct 37.4 L 33.2 L (42.0-52.0) % Sodium 135 L (136-145) mmol/L Creatinine 0.51 L (0.6-1.4) mg/dl BUN/Creatinine Ratio 31.4 H (10-20) Glucose 200 H (70-99(Fasting)) mg/dl POC Glucose (70-99) mg/dl Calcium 8.0 L (8.5-10.1) mg/dl Ur Specific [place] (1.000-1.030) Urine Protein (Negative) Urine Ketones (Negative) Urine Nitrite (Negative) Ur Leukocyte Esterase (Negative) Urine WBC (Auto) (0-5) /hpf 08/11/22 Range/Units 11:57 Hgb (14.0-18.0) g/dl Hct (42.0-52.0) % Sodium (136-145) mmol/L Creatinine (0.6-1.4) mg/dl BUN/Creatinine Ratio (10-20) Glucose (70-99(Fasting)) mg/dl POC Glucose 196 H (70-99) mg/dl Calcium (8.5-10.1) mg/dl Ur Specific [place] (1.000-1.030) Urine Protein (Negative) Urine Ketones (Negative) Urine Nitrite (Negative) Ur Leukocyte Esterase (Negative) Urine WBC (Auto) (0-5) /hpf
--- NOTE | 2022-08-11 17:08 | Hospitalist Progress Note ---
Date of Service August 11, 2022 Assessment & Plan (1) Anemia: Plan: Admit to telemetry Patient presenting from home with reported increased lethargy. As an outpatient, patient has been noted to have a downtrending hemoglobin (11.5 --> 8.0 --> 9.1 --> 8.9 on 07/27). Patient was started on iron replacement. 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 Colonoscopy was considered however patient was felt to not likely be able to tolerate the prep. In the ED, Hgb 5.9. Patient hemodynamically stable. No obvious signs of GI bleeding at this time. Transfused 2 unit PRBC, trend H&H S/p Protonix bolus in the ED, continue IV PPI BID N.p.o. GI consult, Dr. Howell notified via [place] text 08/10 Acute blood loss anemia, likely secondary to right thigh hematoma, spontaneous, in the setting of Lovenox and Plavix use Status posttransfusion of 4 units packed RBCs Hemoglobin improved from 5.[address] angiogram of the right lower extremity: No active bleeding noted Repeat H&H at 1 PM then every 6 hours Anemia panel ordered Hematology service consulted for spontaneous hematoma in the setting of Lovenox and Plavix Discussed at length with the GI service, according to them, inpatient colonoscopy not recommended at this point given absence of active rectal bleeding We will continue to monitor closely 08/11 Hemoglobin remained stable at around 10 since yesterday Hematology service recommendations noted We will start Lovenox 40 mg subcutaneous today (2) Elevated troponin: (3) CAD (coronary artery disease): Plan: HS troponin 1100, no reports of chest pain EKG shows deep T wave inversions in the lateral leads, new from EKG 12/2021 however similar changes have been present on prior EKGs Likely due to demand ischemia in the setting of profound anemia Continue to trend troponin, check resting echo Continue beta-josé and statin, hold clopidogrel due to profound anemia/possible acute bleeding. ASA discontinued previously due to ongoing anemia. Cardiology consult, Dr. Pan notified by ED provider 08/11 Troponin levels appear flat, 1100, 1300, 1000 EKG: No signs of acute ischemia or infarct Echo 45 to 45%, mild apical wall hypokinesis Cardiology service consulted-no further further interventions at this point (4) Type 2 diabetes mellitus: Plan: Hgb A1c 5.2 06/2022 Will hold Lantus due to recently reported hypoglycemia and n.p.o. status NovoLog per protocol Monitor BSG's closely (5) History of CVA (cerebrovascular accident): Plan: History of recurrent CVA despite DAPT and anticoagulation therapy Chronic right hemiplegia/left arm paralysis/mostly nonverbal/expressive aphasia We will start Lovenox today Possibly start Plavix tomorrow (6) H/O deep venous thrombosis: Plan: History of breakthrough DVT while on warfarin and Eliquis therapy, now on therapeutic dose Lovenox Start with Lovenox subcu today (7) HTN (hypertension): Plan: Hold lisinopril to prevent hypotension (8) DVT prophylaxis: Plan: Lovenox subcutaneous plan of care discussed with patient's Nasreen in detail and at length all questions answered understanding, agreeable, comfortable with the plan of care Admission and Anticipated Discharge Date Admission Date: August 09, 2022 Subjective Follow-up for acute blood loss anemia, right thigh hematoma, etc. Seen resting in bed, drowsy but easily awakened Patient's Nasreen at the bedside Denies pain, no shortness of breath No signs of GI bleeding No nausea or vomiting No other new signs or symptoms noted Review of Systems Review of Systems: all noted and negative except for above Physical Exam Physical Exam: General- oriented x 1, not in distress, breathing s with no effort or accessory muscle use Eyes- anicteric Neck- no JVD Lungs- clear breath sounds bilaterally, no rales/wheezes Heart- normal rate, regular rhythm; no murmurs Abdomen- normal bowel sounds, nondistended, soft, nontender Extremities-right thigh-moderate edema, no erythema/warmth/tenderness Left upper extremity-moderate edema, no erythema/warmth/tenderness Neuro-appears drowsy, but no new gross focal neurologic deficits noted Skin- warm & dry Results & Data Results & Data ([facility]) Vital Signs (Past 12 Hours) Vital Signs Temp Pulse Pulse Resp BP Pulse Ox O2 Del Method 08/11/22 15:41 83 08/11/22 15:28 36.6 C 85 18 145/82 H 98 Room Air 08/11/22 13:59 Room Air 08/11/22 12:01 36.8 C 85 18 125/69 95 Room Air 08/11/22 08:35 89 08/11/22 07:29 37.2 C 87 16 119/72 95 Room Air all noted and reviewed including below (1) Anemia Anemia type: unspecified type Qualified Code(s): D64.9 - Anemia, unspecified
--- NOTE | 2022-08-11 21:06 | Hospitalist Progress Note ---
Date of Service August 11, 2022 Assessment & Plan (1) H/O deep venous thrombosis: Plan: I spoke with the [facility] anticoagulation clinic. They indicate that he had had additional episodes of DVT on "standard" weight-based enoxaparin and on that basis they were targeting the upper end of the therapeutic range of anti-Xa leading to his higher than usual doses most recently This is under the direction of Dr. Adal Huntley Met with the at the patient's bedside this evening. Reiterated to her our plan for enoxaparin of 40 mg subcutaneously x1 today, if stable go to 40 mg subcutaneously twice daily tomorrow, if stable can go to 80 mg subcutaneously t wice daily. Plan 1. Would continue with the gradually increasing doses of enoxaparin, received 40 mg X1 today, go to 40 mg twice daily tomorrow, 80 mg twice daily thereafter so long as stable. Thereafter would revert to either return to the [facility] coag clinic or potentially could consider referral to Dr. Ibanez and the [facility] coagulation clinic. 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 Will defer to cardiology for the urgency with which need to resume antiplatelet therapy 3. Patient is obviously extremely devoted to her and that needs to be honored and respected as she sets care parameters. It could be helpful if she would allow, however, to consider an outpatient palliative care conversation to start more specifically exploring how to best frame long-term parameters of care. 4. Given ferritin levels above 200 and the fact that he will likely resorb a fair amount of the hematoma and with that resorb its iron content, do not necessarily need ongoing aggressive iron supplementation but should have close follow-up of hemoglobin and iron studies as his history suggests some possible ongoing low-level GI losses 5. Would empirically supplement with folic acid 1 mg daily long-term Admission and Anticipated Discharge Date Admission Date: August 09, 2022 Subjective Somewhat more alert but still minimally to nonverbal and with dense neurologic deficits Physical Exam Physical Exam: Relatively unchanged, vital signs stable Results & Data Results & Data ([facility]) Vital Signs (Past 12 Hours) Vital Signs Temp Pulse Pulse Resp BP Pulse Ox O2 Del Method 08/11/22 19:00 36.5 C 85 18 101/57 L 96 Room Air 08/11/22 15:41 83 08/11/22 15:28 36.6 C 85 18 145/82 H 98 Room Air 08/11/22 13:59 Room Air 08/11/22 12:01 36.8 C 85 18 125/69 95 Room Air Laboratory Results Abnormal lab results 08/11/22 08/11/22 08/11/22 Range/Units 00:41 01:09 07:36 Hgb 12.1 L 10.7 L (14.0-18.0) g/dl Hct 37.4 L 33.2 L (42.0-52.0) % Sodium (136-145) mmol/L Creatinine (0.6-1.4) mg/dl BUN/Creatinine Ratio (10-20) Glucose (70-99(Fasting)) mg/dl POC Glucose (70-99) mg/dl Calcium (8.5-10.1) mg/dl Ur Specific [place] 1.040 H (1.000-1.030) Urine Protein Trace H (Negative) Urine Ketones Trace H (Negative) Urine Nitrite Positive A (Negative) Ur Leukocyte Esterase 2+ H (Negative) Urine WBC (Auto) >30 H (0-5) /hpf 08/11/22 08/11/22 08/11/22 Range/Units 07:37 11:57 16:28 Hgb (14.0-18.0) g/dl Hct (42.0-52.0) % Sodium 135 L (136-145) mmol/L Creatinine 0.51 L (0.6-1.4) mg/dl BUN/Creatinine Ratio 31.4 H (10-20) Glucose 200 H (70-99(Fasting)) mg/dl POC Glucose 196 H 169 H (70-99) mg/dl Calcium 8.0 L (8.5-10.1) mg/dl Ur Specific [place] (1.000-1.030) Urine Protein (Negative) Urine Ketones (Negative) Urine Nitrite (Negative) Ur Leukocyte Esterase (Negative) Urine WBC (Auto) (0-5) /hpf 08/11/22 Range/Units 20:13 Hgb (14.0-18.0) g/dl Hct (42.0-52.0) % Sodium (136-145) mmol/L Creatinine (0.6-1.4) mg/dl BUN/Creatinine Ratio (10-20) Glucose (70-99(Fasting)) mg/dl POC Glucose 168 H (70-99) mg/dl Calcium (8.5-10.1) mg/dl Ur Specific [place] (1.000-1.030) Urine Protein (Negative) Urine Ketones (Negative) Urine Nitrite (Negative) Ur Leukocyte Esterase (Negative) Urine WBC (Auto) (0-5) /hpf PG Care Time/CCT Total # of Minutes Spent Total Time Spent with Patient: Total time spent is greater than 50% in coordination of care (as documented) at patient's floor/unit and/or counseling patient: Coding Level of Care Code 42361 SUB INP/OBS CARE 06/30MIN Diagnoses H/O deep venous thrombosis Z86.718
[2022-08-11] MEDS: ATORVASTATIN 40 MG TAB PO SCH (21:10)
[2022-08-11] MEDS: TAMSULOSIN HCL 0.4 MG CAP PO SCH (21:11)
[2022-08-12] MEDS: PANTOprazole 40 MG in SYRINGE 0 ML IV SCH ×2 (08:01→21:20)
[2022-08-12] MEDS: carvediloL 12.5 MG TAB PO SCH ×2 (08:08→21:21)
[2022-08-12] MEDS: FERROUS SULFATE 325 MG TAB PO SCH (08:09)
[2022-08-12] MEDS: BACLOFEN 10 MG TAB PO SCH (08:09)
[2022-08-12] MEDS: INSULIN ASPART PER UNIT CHARGE SC SCH ×4 (08:55→21:22)
[2022-08-12] MEDS: FOLIC ACID 1 MG TAB PO SCH (08:57)
[2022-08-12] MEDS: cefTRIAXone SODIUM 2,000 MG in DEXTROSE 5% 50 ML IV SCH (09:56)
--- NOTE | 2022-08-12 10:40 | Cardiology Progress Note ---
Date of Service August 12, 2022 Assessment & Plan (1) Hematoma of right thigh: (2) H/O deep venous thrombosis: (3) Anemia: (4) Elevated troponin: (5) Aortic stenosis: (6) History of CVA (cerebrovascular accident): (7) CAD (coronary artery disease): Plan Complex 62 year old male admitted with worsening lethargy. Cardiology consultation requested due to elevated troponin I levels representing demand ischemia in the setting of profound anemia (Hgb 5.9 g/dL). Patient with known d iffuse aggressive premature atherosclerotic cardiovascular disease - bilateral carotid artery disease, multivessel coronary artery disease, shaggy aorta, lower extremity peripheral artery disease, multiple recurrent strokes as well as right lower extremity DVT despite therapeutic anticoagulation. Resting echocardiography with severe valvular heart disease, now with mild reduction in LV systolic function. Volume status is compensated. Patient maintaining sinus rhythm. Recommend ongoing conservative cardiac medical management. Continue beta-josé and statin. Recommend resumption of antiplatelet (Plavix) therapy. Anticoagulation as per Hematology. Please contact with any questions or concerns. Admission and Anticipated Discharge Date Admission Date: August 09, 2022 Supervising Physician Co-Signing Physician Notes I have reviewed the advance practitioner documentation and agree. I saw and evaluated the patient on the date of service referenced in the note and have performed a medically appropriate history and or exam. Continue conservative management as indicated. Subjective Spoke with in hallway when going to review the telemetry earlier this morning as well as in patient's room later, answering her questions/concerns to the best of my ability. Telemetry reviewed with . Resting echocardiogram results discussed with . Chart, medications, and telemetry reviewed. No AM labs available for review. Telemetry: Sinus rhythm predominately in the 80's. No PAF. No significant bradycardia. August 10, 2022 TTE Interpretation Summary ([facility], Dr. Pan): Severe concentric LVH. Mildly reduced systolic function, EF 40-45%. Mild apical wall hypokinesis. Normal RV systolic function. Moderately dilated LA. Normal RA. Severe calcific aortic stenosis. Moderate mitral regurgitation, severe mitral annular calcification. Mild to moderate TR. Aortic boris sclerosis/calcification. Review of Systems Review of Systems: A complete and accurate review of systems was unable to be obtained from the patient. Physical Exam Physical Exam: General: NAD. Neck: No JVD. Heart: Regular at 80 bpm. Grade III/ systolic ejection murmur of aortic stenosis. Lungs: Diminished. Decreased. No wheeze. Abdomen: +BS. Extremities: No lower extremity edema. Results & Data ([facility]) Vital Signs (Past 12 Hours) Vital Signs Temp Pulse Pulse Resp BP Pulse Ox O2 Del Method 08/12/22 08:28 Room Air 08/12/22 07:59 36.6 C 84 18 122/73 84 L Room Air 08/12/22 03:00 37.0 C 81 18 113/69 95 Room Air 08/11/22 23:00 87 Laboratory Results Intake and Output 08/11/22 08/12/22 08/12/22 22:59 06:59 14:59 Intake Total 150 / 922 Output Total 600 / 1050 450 / 1050 Balance -450 / -128 -450 / -128 Intake: Oral 150 / 150 Output: Urine Amount (Catheter) 600 / 1050 450 / 1050 [place]agan/Indwelling 600 / 1050 450 / 1050 Other: Other Intake Source sips Weight 84.3 kg Weight Measurement Method Built in [facility] (3) Anemia Anemia type: unspecified type Qualified Code(s): D64.9 - Anemia, unspecified
[2022-08-12 11:17] LABS: Basophils # (auto) 0.03 K/uL (0-0.2); Basophils % (auto) 0.4 %; Eosinophils # (auto) 0.05 K/uL (0-0.50); Eosinophils % (auto) 0.7 %; Hematocrit (blood only) 31.2 % (42.0-52.0); Hemoglobin 9.8 g/dl (14.0-18.0); Immature Granulocytes # (auto) 0.05 K/uL (0.01-0.20); Immature Granulocytes % (auto) 0.7 %; Lymphocytes # (auto) 0.97 K/uL (1.2-3.4); Lymphocytes % (auto) 13.5 %; Mean Corpuscular Hemoglobin 25.3 pg (25.0-34.0); Mean Corpuscular Hgb Conc 31.4 g/dL (32.0-36.0); Mean Corpuscular Volume 80.6 fL (80.0-100.0); Mean Platelet Volume 9.5 fL (9.4-12.4); Monocytes # (auto) 0.46 K/uL (0.11-0.59); Monocytes % (auto) 6.4 %; Neutrophils # (auto) 5.64 K/uL (1.40-6.50); Neutrophils % (auto) 78.3 %; Platelet Count 320 K/uL (130-400); RDW Coefficient of Variation 18.7 % (11.5-14.5); RDW Standard Deviation 54.4 fL (36.4-46.3); Red Blood Count 3.87 M/uL (4.70-6.10)
[2022-08-12 11:47] LABS: BUN Creatinine Ratio 38.3 (10-20); Calcium 7.7 mg/dl (8.5-10.1); Creatinine Clr Calc Pharmacy 169.1 ml/min; Est GFR (African American) 136.2 ml/min; Est GFR (Non-African American) 117.5 ml/min
[2022-08-12] MEDS: ENOXAPARIN INJ 40 MG/0.4 ML SYR SQ SCH (14:37)
[2022-08-12] MEDS ORDERED: SODIUM CHLORIDE 0.9% 1000ML 1,000 ML IV SCH (14:45)
--- NOTE | 2022-08-12 17:45 | Hospitalist Progress Note ---
Date of Service August 12, 2022 Assessment & Plan (1) Anemia: Plan: Admit to telemetry Patient presenting from home with reported increased lethargy. As an outpatient, patient has been noted to have a downtrending hemoglobin (11.5 --> 8.0 --> 9.1 --> 8.9 on 07/27). Patient was started on iron replacement. 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 Colonoscopy was considered however patient was felt to not likely be able to tolerate the prep. In the ED, Hgb 5.9. Patient hemodynamically stable. No obvious signs of GI bleeding at this time. Transfused 2 unit PRBC, trend H&H S/p Protonix bolus in the ED, continue IV PPI BID N.p.o. GI consult, Dr. Howell notified via [place] text 08/10 Acute blood loss anemia, likely secondary to right thigh hematoma, spontaneous, in the setting of Lovenox and Plavix use Status posttransfusion of 4 units packed RBCs Hemoglobin improved from 5.[address] angiogram of the right lower extremity: No active bleeding noted Repeat H&H at 1 PM then every 6 hours Anemia panel ordered Hematology service consulted for spontaneous hematoma in the setting of Lovenox and Plavix Discussed at length with the GI service, according to them, inpatient colonoscopy not recommended at this point given absence of active rectal bleeding We will continue to monitor closely 08/11 Hemoglobin remained stable at around 10 since yesterday Hematology service recommendations noted We will start Lovenox 40 mg subcutaneous today 08/12 Hg 9.8 increase Lovenox 40mg BID restart Plavix monitor (2) Elevated troponin: (3) CAD (coronary artery disease): Plan: HS troponin 1100, no reports of chest pain EKG shows deep T wave inversions in the lateral leads, new from EKG 12/2021 however similar changes have been present on prior EKGs Likely due to demand ischemia in the setting of profound anemia Continue to trend troponin, check resting echo Continue beta-josé and statin, hold clopidogrel due to profound anemia/possible acute bleeding. ASA discontinued previously due to ongoing anemia. Cardiology consult, Dr. Pan notified by ED provider 08/11 Troponin levels appear flat, 1100, 1300, 1000 EKG: No signs of acute ischemia or infarct Echo 45 to 45%, mild apical wall hypokinesis Cardiology service consulted-no further further interventions at this point 08/12 restart Plavix (4) Type 2 diabetes mellitus: Plan: Hgb A1c 5.2 06/2022 Will hold Lantus due to recently reported hypoglycemia and n.p.o. status NovoLog per protocol Monitor BSG's closely (5) History of CVA (cerebrovascular accident): Plan: History of recurrent CVA despite DAPT and anticoagulation therapy Chronic right hemiplegia/left arm paralysis/mostly nonverbal/expressive aphasia We will start Lovenox today Possibly start Plavix tomorrow (6) H/O deep venous thrombosis: Plan: History of breakthrough DVT while on warfarin and Eliquis therapy, now on therapeutic dose Lovenox Lovenox BID (7) HTN (hypertension): Plan: Hold lisinopril to prevent hypotension (8) DVT prophylaxis: Plan: Lovenox subcutaneous plan of care discussed with patient's Nasreen in detail and at length all questions answered understanding, agreeable, comfortable with the plan of care Admission and Anticipated Discharge Date Admission Date: August 09, 2022 Subjective ff up for hematoma, anemia, etc seen resting in bed, awake, nods/answers with words at bedside visiting patient ate 75% of breakfast no signs of active bleeding noted no pain, shortness of breath no other symptoms Review of Systems Review of Systems: all noted and negative except for above Physical Exam Physical Exam: General- alert, breathing with no effort or accessory muscle use Eyes- anicteric Neck- no JVD Lungs- clear BS bilaterally, no rales/wheezes Heart- normal rate, regular rhythm; no murmurs Abdomen- normal bowel sounds, nondistended, soft, nontender Extremities- no pretibial edema, no calf tenderness LUE- edema improving R thigh- edema improving Neuro- alert, no new gross focal neurologic deficits Skin- warm & dry Results & Data Results & Data ([facility]) Vital Signs (Past 12 Hours) Vital Signs Temp Pulse Resp BP Pulse Ox O2 Del Method 08/12/22 15:59 36.9 C 75 19 109/52 L 98 Room Air 08/12/22 12:18 37.1 C 83 18 117/67 96 Room Air 08/12/22 08:28 Room Air 08/12/22 07:59 36.6 C 84 18 122/73 84 L Room Air all noted and reviewed including below (1) Anemia Anemia type: unspecified type Qualified Code(s): D64.9 - Anemia, unspecified
[2022-08-12] MEDS: TAMSULOSIN HCL 0.4 MG CAP PO SCH (21:21)
[2022-08-12] MEDS: ATORVASTATIN 40 MG TAB PO SCH (21:22)
[2022-08-13] MEDS: ENOXAPARIN INJ 40 MG/0.4 ML SYR SQ SCH (02:02)
[2022-08-13 06:21] LABS: Basophils # (auto) 0.04 K/uL (0-0.2); Basophils % (auto) 0.7 %; Eosinophils # (auto) 0.11 K/uL (0-0.50); Eosinophils % (auto) 1.8 %; Hemoglobin 9.6 g/dl (14.0-18.0); Immature Granulocytes # (auto) 0.02 K/uL (0.01-0.20); Immature Granulocytes % (auto) 0.3 %; Lymphocytes # (auto) 1.17 K/uL (1.2-3.4); Lymphocytes % (auto) 19.5 %; Mean Corpuscular Hemoglobin 25.3 pg (25.0-34.0); Mean Corpuscular Volume 81.6 fL (80.0-100.0); Mean Platelet Volume 9.7 fL (9.4-12.4); Monocytes # (auto) 0.36 K/uL (0.11-0.59); Neutrophils # (auto) 4.29 K/uL (1.40-6.50); Neutrophils % (auto) 71.7 %; Platelet Count 290 K/uL (130-400); RDW Coefficient of Variation 19.1 % (11.5-14.5); RDW Standard Deviation 56.2 fL (36.4-46.3); White Blood Count 5.99 K/ul (4.8-10.8)
[2022-08-13 06:42] LABS: BUN Creatinine Ratio 40.5 (10-20); Calcium 7.6 mg/dl (8.5-10.1); Creatinine Clr Calc Pharmacy 189.2 ml/min; Est GFR (African American) 142.6 ml/min; Potassium 3.7 mmol/L (3.5-5.1)
[2022-08-13] MEDS: INSULIN ASPART PER UNIT CHARGE SC SCH ×4 (08:14→20:54)
[2022-08-13] MEDS: carvediloL 12.5 MG TAB PO SCH ×2 (09:16→20:54)
[2022-08-13] MEDS: BACLOFEN 10 MG TAB PO SCH (09:16)
[2022-08-13] MEDS: FERROUS SULFATE 325 MG TAB PO SCH (09:17)
[2022-08-13] MEDS: PANTOprazole 40 MG in SYRINGE 0 ML IV SCH ×2 (09:17→20:54)
[2022-08-13] MEDS: cefTRIAXone SODIUM 2,000 MG in DEXTROSE 5% 50 ML IV SCH (09:17)
[2022-08-13] MEDS: FOLIC ACID 1 MG TAB PO SCH (09:17)
--- NOTE | 2022-08-13 09:29 | CT Scan Report ---
CT femur RT wo con HISTORY: 62 years-old Male ff up hematoma follow-up study in a patient with reported right thigh hem atoma COMPARISON: CTA right lower extremity 08/10/2022 TECHNIQUE: Multiple axial CT images of the right femur were obtained without the use of IV contrast. A dose lowering technique was used consistent with the principals of S[place]AGO. FINDINGS: Decompressed urinary bladder with Hagan catheter. Prostamegaly. Moderate fecal retention of the rectu m with mild nonspecific circumferential rectal wall thickening. Trace free fluid within the pelvis. E xtensive vascular calcifications. Mild right inguinal lymphadenopathy with lymph nodes measuring up t o 1.1 cm. Intramuscular hematomas are again noted throughout the right pelvis and thigh. Ill-defined intramuscu lar hemorrhage within the right adductor space measures up to approximately 8.6 x 5.5 cm, stable. Lar ge area of hemorrhage within the proximal right upper thigh, located within the vastus intermedius me asuring up to 6.8 x 6.4 x 17 cm has not significantly changed. Smaller hematoma within the vastus med ialis is also similar in size. Moderate diffuse subcutaneous and deep tissue edema of the bladder and right upper extremity. 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 Demineral ized appearance of the bones. There is no acute fracture, dislocation, osseous erosion or suspicious bone lesion identified. Moderate osteoarthritis of the hip and medial compartment right knee with mil d patellofemoral and lateral compartment osteoarthritis. IMPRESSION: 1. Large intramuscular hematomas within the right adductor space and right quadriceps appear generall y stable compared to the study from 08/10/2022. 2. No acute fracture or dislocation identified. 3. 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 4. Diffuse subcutaneous and deep tissue edema redemonstrated. ACT 112: Negative or not required by law. The above report was generated using voice recognition software. It may contain grammatical, syntax o r spelling errors. Electronically signed by: Abdon Gr M.D. 08/13/2022 9:27 AM
[2022-08-13] MEDS: DAPTOmycin 300 MG in SYRINGE 0 ML IV SCH (11:45)
[2022-08-13 12:15] LABS: Hemoglobin 9.3 g/dl (14.0-18.0)
--- NOTE | 2022-08-13 12:22 | Cardiology Progress Note ---
Date of Service August 13, 2022 Assessment & Plan (1) Hematoma of right thigh: (2) H/O deep venous thrombosis: (3) Anemia: (4) Elevated troponin: (5) Aortic stenosis: (6) History of CVA (cerebrovascular accident): (7) CAD (coronary artery disease): Plan 62 year old male admitted with worsening lethargy. Cardiology consultation requested due to elevated troponin I levels representing demand ischemia in the setting of profound anemia (Hgb 5.9 g/dL). Patient with known diffuse aggressive premature atherosclerotic cardiovascular disease - bilateral carotid artery disease, multivessel coronary artery disease, shaggy aorta, lower extremity peripheral artery disease, multiple recurrent strokes as well as right lower extremity DVT despite therapeutic anticoagulation. Resting echocardiography with severe valvular heart disease, now with mild reduction in LV systolic function. Volume status is compensated. Telemetry on 08/12/2022 with a 30-beat run of wide complex tachycardia, asymptomatic. Supplement potassium. Check magnesium and TSH. Continue beta-josé. Recommend ongoing conservative cardiac medical management. Continue statin. Resume antiplatelet (Plavix) therapy as soon as determined to be safe. Anticoagulation as per Hematology. Admission and Anticipated Discharge Date Admission Date: August 09, 2022 Supervising Physician Co-Signing Physician Notes Patient seen examined at the bedside. Worsening lethargy noted. present. Offers no additional concerns/complaints. PE: VSS. Gen: NAD. Heart: Regular rhythm, 3/6 systolic ejection murmur heard best at the base. Lungs: Diminished breath sounds at the bases bilateral. A/P: Agree with above PA-C history, physical exam, assessment and plan. Continue beta-josé therapy. Supplement electrolytes as indicated. Continue statin therapy and conservative medical management. Resume antiplatelet therapy when determined to be safe. Anticoagulation as per hematology. Subjective [place] Text Message received regarding an episode of tachycardia on telemetry last night. Personal review reveals a 30 beat run of wide complex tachycardia on 08/12/2022 at 17:00:23 that is more suggestive of VT than SVT with aberrancy though is difficult to discern. at bedside at that time. Asymptomatic at that time. Carvedilol held in the AM of 08/11/2022 only on chart review. Review of Systems Review of Systems: A complete and accurate review of systems was unable to be obtained from the patient. Physical Exam Physical Exam: General: NAD. Heart: Regular at 64 bpm. Grade III/ systolic ejection murmur of aortic stenosis. Extremities: No lower extremity edema. Results & Data ([facility]) Vital Signs (Past 12 Hours) Vital Signs Temp Pulse Pulse Pulse Resp BP Pulse Ox 08/13/22 11:57 37 C 74 18 121/72 99 08/13/22 07:00 73 08/13/22 08:00 08/13/22 07:30 36.3 C L 78 18 134/72 99 08/13/22 02:55 36.6 C 80 18 111/66 95 O2 Del Method 08/13/22 11:57 Room Air 08/13/22 07:00 08/13/22 08:00 Room Air 08/13/22 07:30 Room Air 08/13/22 02:55 Room Air Laboratory Results CBC 08/13/22 08/13/22 Range/Units 06:01 11:54 WBC 5.99 (4.8-10.8) K/ul RBC 3.80 L (4.70-6.10) M/uL Hgb 9.6 L 9.3 L (14.0-18.0) g/dl Hct 31.0 L 30.0 L (42.0-52.0) % Plt Count 290 (130-400) K/uL Neut # (Auto) 4.29 (1.40-6.50) K/uL Lymph # (Auto) 1.17 L (1.2-3.4) K/uL [place] # (Auto) 0.36 (0.11-0.59) K/uL Eos # (Auto) 0.11 (0-0.50) K/uL Baso # (Auto) 0.04 (0-0.2) K/uL Comprehensive Metabolic Panel 08/13/22 Range/Units 06:01 Sodium 141 (136-145) mmol/L Potassium 3.7 (3.5-5.1) mmol/L Chloride 112 H (98-107) mmol/L Carbon Dioxide 26 (21-32) mmol/L BUN 17 (6-23) mg/dl Creatinine 0.42 L (0.6-1.4) mg/dl Glucose 201 H (70-99(Fasting)) mg/dl Calcium 7.6 L (8.5-10.1) mg/dl Intake and Output 08/12/22 08/13/22 08/13/22 22:59 06:59 14:59 Intake Total 1070 / 1070 Output Total 300 / 800 250 / 800 Balance -300 / -380 -250 / -380 1070 / 1070 Intake: IV 1070 / 1070 Sodium Chloride 0.9% 1000ML 1, 1000 / 1000 000 ml @ 60 mls/hr IV .[id number] [facility] Rx#:[id number] cefTRIAXone SODIUM 2,000 mg In 70 / 70 Dextrose 5% 50 ml @ 100 mls/hr IV Q24H [facility] Rx#:[id number] Output: Urine Amount (Catheter) 300 / 800 250 / 800 Hagan/Indwelling 300 / 800 250 / 800 Other: Other Intake Source Sips Weight 84.3 kg 84.1 kg Weight Measurement Method Built in [facility] (3) Anemia Anemia type: unspecified type Qualified Code(s): D64.9 - Anemia, unspecified
[2022-08-13] MEDS ORDERED: POTASSIUM CHLORIDE CRTAB 20 MEQ TABCR PO ONE (12:34)
[2022-08-13] MEDS: MAGNESIUM OXIDE 400 MG TAB PO SCH (13:13)
--- NOTE | 2022-08-13 13:31 | Hospitalist Progress Note ---
Date of Service August 13, 2022 Assessment & Plan (1) Anemia: Plan: (1) Anemia: Plan: Admit to telemetry Patient presenting from home with reported increased lethargy. As an outpatient, patient has been noted to have a downtrending hemoglobin (11.5 --> 8.0 --> 9.1 --> 8.9 on 07/27). Patient was started on iron replacement. 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 Colonoscopy was considered however patient was felt to not likely be able to tolerate the prep. In the ED, Hgb 5.9. Patient hemodynamically stable. No obvious signs of GI bleeding at this time. Transfused 2 unit PRBC, trend H&H S/p Protonix bolus in the ED, continue IV PPI BID N.p.o. GI consult, Dr. Howell notified via [place] text 08/10 Acute blood loss anemia, likely secondary to right thigh hematoma, spontaneous, in the setting of Lovenox and Plavix use Status posttransfusion of 4 units packed RBCs Hemoglobin improved from 5.[address] angiogram of the right lower extremity: No active bleeding noted Repeat H&H at 1 PM then every 6 hours Anemia panel ordered Hematology service consulted for spontaneous hematoma in the setting of Lovenox and Plavix Discussed at length with the GI service, according to them, inpatient colonoscopy not recommended at this point given absence of active rectal bleeding We will continue to monitor closely 08/11 Hemoglobin remained stable at around 10 since yesterday Hematology service recommendations noted We will start Lovenox 40 mg subcutaneous today 08/12 Hg 9.8 increase Lovenox 40mg BID restart Plavix monitor (2) Elevated troponin: (3) CAD (coronary artery disease): Plan: HS troponin 1100, no reports of chest pain EKG shows deep T wave inversions in the lateral leads, new from EKG 12/2021 however similar changes have been present on prior EKGs Likely due to demand ischemia in the setting of profound anemia Continue to trend troponin, check resting echo Continue beta-josé and statin, hold clopidogrel due to profound anemia/possible acute bleeding. ASA discontinued previously due to ongoing anemia. Cardiology consult, Dr. Pan notified by ED provider 08/11 Troponin levels appear flat, 1100, 1300, 1000 EKG: No signs of acute ischemia or infarct Echo 45 to 45%, mild apical wall hypokinesis Cardiology service consulted-no further further interventions at this point 08/13 Hg 9.6--> 9.[address] R thigh: hematoma stable discussed with Dr. Richey repeat Hg 6pm, if stable will resume Lovenox tonight hold Plavix Possible UTI Coag Neg Staph discussed with Rah ID will transition to Doxycycline tomorrow x 3 days (4) Type 2 diabetes mellitus: Plan: Hgb A1c 5.2 06/2022 Will hold Lantus due to recently reported hypoglycemia and n.p.o. status NovoLog per protocol Monitor BSG's closely (5) History of CVA (cerebrovascular accident): Plan: History of recurrent CVA despite DAPT and anticoagulation therapy Chronic right hemiplegia/left arm paralysis/mostly nonverbal/expressive aphasia management of Lovenox + PLavix per above (6) H/O deep venous thrombosis: Plan: History of breakthrough DVT while on warfarin and Eliquis therapy, now on therapeutic dose Lovenox per above (7) HTN (hypertension): Plan: Hold lisinopril to prevent hypotension (8) DVT prophylaxis: Plan: Lovenox per above plan of care discussed with patient's Nasreen in detail and at length all questions answered understanding, agreeable, comfortable with the plan of care Admission and Anticipated Discharge Date Admission Date: August 09, 2022 Subjective ff up for anemia, etc seen resting in bed, awake, answers with words comfortable, not in distress states he feels ok denies pain, shortness of breath no other symptoms noted no note of GI bleed or any other bleeding Review of Systems Review of Systems: all noted and negative except for above Physical Exam Physical Exam: General- oriented x 3, not in distress, speaks in sentences with no effort or accessory muscle use Eyes- anicteric Neck- no JVD Lungs- clear breath sounds bilaterally Heart- normal rate, regular rhythm; no murmurs Abdomen- normal bowel sounds, nondistended, soft, nontender Extremities- no pretibial edema, no calf tenderness LUE- edema improving RUE- edema improving Neuro- alert, oriented x 3; no gross focal neurologic deficits Skin- warm & dry Results & Data Results & Data ([facility]) Vital Signs (Past 12 Hours) Vital Signs Temp Pulse Pulse Pulse Resp BP Pulse Ox 08/13/22 11:57 37 C 74 18 121/72 99 08/13/22 07:00 73 08/13/22 08:00 08/13/22 07:30 36.3 C L 78 18 134/72 99 08/13/22 02:55 36.6 C 80 18 111/66 95 O2 Del Method 08/13/22 11:57 Room Air 08/13/22 07:00 08/13/22 08:00 Room Air 08/13/22 07:30 Room Air 08/13/22 02:55 Room Air all noted and reviewed including below (1) Anemia Anemia type: unspecified type Qualified Code(s): D64.9 - Anemia, unspecified
[2022-08-13 18:44] LABS: Hematocrit (blood only) 30.8 % (42.0-52.0); Hemoglobin 9.6 g/dl (14.0-18.0)
[2022-08-13] MEDS: TAMSULOSIN HCL 0.4 MG CAP PO SCH (20:55)
[2022-08-14] MEDS: ENOXAPARIN INJ 40 MG/0.4 ML SYR SQ SCH (03:10)
[2022-08-14 06:14] LABS: Basophils # (auto) 0.05 K/uL (0-0.2); Eosinophils # (auto) 0.11 K/uL (0-0.50); Eosinophils % (auto) 2.1 %; Hematocrit (blood only) 32.3 % (42.0-52.0); Hemoglobin 9.8 g/dl (14.0-18.0); Immature Granulocytes # (auto) 0.02 K/uL (0.01-0.20); Immature Granulocytes % (auto) 0.4 %; Lymphocytes # (auto) 1.16 K/uL (1.2-3.4); Lymphocytes % (auto) 22.2 %; Mean Corpuscular Hemoglobin 24.9 pg (25.0-34.0); Mean Corpuscular Hgb Conc 30.3 g/dL (32.0-36.0); Mean Corpuscular Volume 82.2 fL (80.0-100.0); Mean Platelet Volume 9.8 fL (9.4-12.4); Monocytes # (auto) 0.28 K/uL (0.11-0.59); Monocytes % (auto) 5.4 %; Neutrophils # (auto) 3.61 K/uL (1.40-6.50); Neutrophils % (auto) 68.9 %; Platelet Count 345 K/uL (130-400); RDW Coefficient of Variation 19.1 % (11.5-14.5); RDW Standard Deviation 57.6 fL (36.4-46.3); Red Blood Count 3.93 M/uL (4.70-6.10); White Blood Count 5.23 K/ul (4.8-10.8)
--- NOTE | 2022-08-14 07:05 | Hospitalist Progress Note ---
Date of Service August 13, 2022 Assessment & Plan (1) Anemia: Plan: There had been some concern as his hemoglobin levels trended down towards the end of the week but at least over the last 48 hours they do seem to have leveled off in the mid nines. He has shown no signs of gross GI bleeding and repeat imaging suggests that the hematoma is stable. While his ferritin is well into the triple digit range, percent iron saturation is very low. He has a significant deposit of iron in the hematoma which may be absorbed in time, but that resorption may be slow and functionally his current hemoglobin may be limited somewhat by lack immediately accessible iron. Do not feel that there would be a tremendous risk to at least some moderate iron supplementation and would redommend that we give a dose of Venofer 300 mg now and potentially repeat that in 3-5 days if we do not see a further rise in hemoglobin. Major issue will be whether or not returning to more therapeutic levels of anticoagulation reawakens any bleeding either in the GI tract or in the current or possibly future soft tissue bleeding site. (2) H/O deep venous thrombosis: Plan: We are still faced with the competing priorities of minimizing any further risk for either GI or a soft tissue bleeding versus the significant concern of historic recurrent arterial and venous thrombosis. While the temporary downward trend of hemoglobins in the latter part of the week had raise concerns over additional bleeding, there are no sign of either GI or additional soft tissue bleeding and hemoglobin levels of stabilized. He has resumed his antiplatelet therapy but we had held his enoxaparin at the lower dose of 40 mg twice daily while we assessed the ongoing hemoglobin changes. With that more completely stabilized, and with the severe issues he has had with thrombosis historically, I would suggest that we can return to a dose of enoxaparin 80 mg subcutaneously twice daily as he continues with his clopidogrel. In doing so, we will need to watch very closely for any additional fall in hemoglobin levels and as well for any signs whatsoever of new soft tissue or GI bleeding. I have extensively reviewed those competing concerns with his during my meeting with her earlier in the week and will urge the hospital team to continue to do so. The 80 mg twice daily dose would be the "standard" dose of enoxaparin for full dose anticoagulation. His outpatient anticoagulation clinic had been keeping him at a higher dose out of concern for previous recurrent DVT. Without greater familiarity with the exact details of that decision making, I nevertheless have concerns that it is not entirely clear that pushing the enoxaparin dose to higher levels is dramatically further therapeutic and certainly raises additional bleeding concerns. I would advise that there be no further elevations beyond the 80 mg dose at least for the next 72 hours as we monitor for any new bleeding that might occur. Anticipate that by that time unless there has been a further episode he may be ready for discharge and if so would advise that he either resume interaction with the anticoagulation clinic in [place] or consider working with our own anticoagulation clinic here. That will be a better venue for making long-term dose management decisions in full collaboration with his and other outpatient care resources. Plan 1. We will give a dose of Venofer 300 mg now and consider repeating that in 5 days if he remains hospitalized and does not have a more consistent rise in hemoglobin 2. Would advise that along as there are no signs of bleeding can increase his enoxaparin to 80 mg twice daily as discussed in detail above but will need to continue to watch his hemoglobin closely and for any signs of new soft tissue or GI bleeding 3. We will need to continue to advise his of the challenges in his ongoing management with ongoing concerns both for new thrombosis and new bleeding 4. If there are new bleeding or thrombosis events during hospitalization we will certainly address those immediately. Otherwise anticipate discharge towards the first of the week at which time he should be specifically either reconnected with the [place] anticoagulation clinic to closely monitor and guide enoxaparin dosing as an outpatient or could be referred to the [facility] anticoagulation clinic as an alternative. 1 where another, he will need to work closely with a team with anticoagulation expertise to continue to discuss and determine the optimal approach to anticoagulation management Admission and Anticipated Discharge Date Admission Date: August 09, 2022 Subjective More alert though still with what appears to be at least an expressive dysphagia and significant neurologic compromise Physical Exam Physical Exam: Afebrile and overall exam is stable Results & Data Results & Data ([facility]) Vital Signs (Past 12 Hours) Vital Signs Temp Pulse Pulse Pulse Resp BP Pulse Ox 08/13/22 11:57 37 C 74 18 121/72 99 08/13/22 07:00 73 08/13/22 08:00 08/13/22 07:30 36.3 C L 78 18 134/72 99 08/13/22 02:55 36.6 C 80 18 111/66 95 O2 Del Method 08/13/22 11:57 Room Air 08/13/22 07:00 08/13/22 08:00 Room Air 08/13/22 07:30 Room Air 08/13/22 02:55 Room Air PG Care Time/CCT Total # of Minutes Spent Total Time Spent with Patient: Total time spent is greater than 50% in coordination of care (as documented) at patient's floor/unit and/or counseling patient: Coding Level of Care Code 96351 SUB INP/OBS CARE 1/25MIN History Problem Focused Exam Problem Focused Medical Decision Making High Complexity Diagnoses Anemia D64.9 Anemia type: unspecified type H/O deep venous thrombosis Z86.718 (1) Anemia Anemia type: unspecified type Qualified Code(s): D64.9 - Anemia, unspecified
[2022-08-14] MEDS: INSULIN ASPART PER UNIT CHARGE SC SCH ×4 (07:47→21:04)
[2022-08-14] MEDS: carvediloL 12.5 MG TAB PO SCH ×2 (08:09→21:08)
[2022-08-14] MEDS: MAGNESIUM OXIDE 400 MG TAB PO SCH (08:09)
[2022-08-14] MEDS: PANTOprazole 40 MG in SYRINGE 0 ML IV SCH ×2 (08:09→21:07)
[2022-08-14] MEDS: FERROUS SULFATE 325 MG TAB PO SCH (08:09)
[2022-08-14] MEDS: FOLIC ACID 1 MG TAB PO SCH (08:10)
[2022-08-14] MEDS: BACLOFEN 10 MG TAB PO SCH (08:10)
--- NOTE | 2022-08-14 09:10 | Electrocardiogram Report ---
Test Reason : Blood Pressure : / mmHG Vent. Rate : 082 BPM Atrial Rate : 082 BPM P-R Int : 132 ms QRS Dur : 094 ms QT Int : 382 ms P-R-T Axes : 048 042 129 degrees QTc Int : 446 ms Normal sinus rhythm Possible Left atrial enlargement Anterior infarct , age undetermined Consider inferior DE Abnormal ECG When compared with ECG of 10-AUG-2022 10:40, QRS duration has increased Anterior infarct is now Present Confirmed by Clemente Samayoa ([id number]) on 08/14/2022 9:09:48 AM Referred By: REFERRED SELF Confirmed By:Clemente Samayoa
[2022-08-14] MEDS: ENOXAPARIN 80 MG/0.8 ML SYR SQ SCH (11:17)
[2022-08-14] MEDS: DAPTOmycin 300 MG in SYRINGE 0 ML IV SCH (11:18)
--- NOTE | 2022-08-14 14:48 | Hospitalist Progress Note ---
Date of Service August 14, 2022 Assessment & Plan (1) Anemia: Plan: (1) Anemia: Plan: Admit to telemetry Patient presenting from home with reported increased lethargy. As an outpatient, patient has been noted to have a downtrending hemoglobin (11.5 --> 8.0 --> 9.1 --> 8.9 on 07/27). Patient was started on iron replacement. 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 Colonoscopy was considered however patient was felt to not likely be able to tolerate the prep. In the ED, Hgb 5.9. Patient hemodynamically stable. No obvious signs of GI bleeding at this time. Transfused 2 unit PRBC, trend H&H S/p Protonix bolus in the ED, continue IV PPI BID N.p.o. GI consult, Dr. Howlel notified via [place] text 08/10 Acute blood loss anemia, likely secondary to right thigh hematoma, spontaneous, in the setting of Lovenox and Plavix use Status posttransfusion of 4 units packed RBCs Hemoglobin improved from 5.[address] angiogram of the right lower extremity: No active bleeding noted Repeat H&H at 1 PM then every 6 hours Anemia panel ordered Hematology service consulted for spontaneous hematoma in the setting of Lovenox and Plavix Discussed at length with the GI service, according to them, inpatient colonoscopy not recommended at this point given absence of active rectal bleeding We will continue to monitor closely 08/11 Hemoglobin remained stable at around 10 since yesterday Hematology service recommendations noted We will start Lovenox 40 mg subcutaneous today 08/12 Hg 9.8 increase Lovenox 40mg BID restart Plavix monitor 08/14 Hg stable since yesterday, 9.[address] Richey, increase Lovenox 80mg SC BID today possible addition of Plavix tomorrow if Hg stable (2) Elevated troponin: (3) CAD (coronary artery disease): Plan: HS troponin 1100, no reports of chest pain EKG shows deep T wave inversions in the lateral leads, new from EKG 12/2021 however similar changes have been present on prior EKGs Likely due to demand ischemia in the setting of profound anemia Continue to trend troponin, check resting echo Continue beta-josé and statin, hold clopidogrel due to profound anemia/possible acute bleeding. ASA discontinued previously due to ongoing anemia. Cardiology consult, Dr. Pan notified by ED provider 08/11 Troponin levels appear flat, 1100, 1300, 1000 EKG: No signs of acute ischemia or infarct Echo 45 to 45%, mild apical wall hypokinesis Cardiology service consulted-no further further interventions at this point 08/13 Hg 9.6--> 9.[address] R thigh: hematoma stable discussed with Dr. Richey repeat Hg 6pm, if stable will resume Lovenox tonight hold Plavix 08/14 plan to add Plavix tomorrow Possible UTI Coag Neg Staph discussed with Erica GIBBS transition to Doxycycline today x 3 days (4) Type 2 diabetes mellitus: Plan: Hgb A1c 5.2 06/2022 Will hold Lantus due to recently reported hypoglycemia and n.p.o. status NovoLog per protocol Monitor BSG's closely (5) History of CVA (cerebrovascular accident): Plan: History of recurrent CVA despite DAPT and anticoagulation therapy Chronic right hemiplegia/left arm paralysis/mostly nonverbal/expressive aphasia management of Lovenox + PLavix per above (6) H/O deep venous thrombosis: Plan: History of breakthrough DVT while on warfarin and Eliquis therapy, now on therapeutic dose Lovenox per above (7) HTN (hypertension): Plan: Hold lisinopril to prevent hypotension (8) DVT prophylaxis: Plan: Lovenox per above Admission and Anticipated Discharge Date Admission Date: August 09, 2022 Subjective ff up for anemia, etc seen resting in bed, comfortable awake, answers with words denies pain, shortness of breath no signs of bleeding per RN no other symptoms Review of Systems Review of Systems: all noted and negative except for above Physical Exam Physical Exam: General- not in distress, no effort or accessory muscle use Eyes- anicteric Neck- no JVD Lungs- clear breath sounds bilaterally, no crackles or wheezing Heart- normal rate, regular rhythm; (+) murmur Abdomen- normal bowel sounds, nondistended, soft, nontender Extremities- no pretibial edema, no calf tenderness LUE: edema mild-mod R thigh: edema mild-mod Neuro- alert, oriented x 2; no new gross focal neurologic deficits Skin- warm & dry Results & Data Results & Data ([facility]) Vital Signs (Past 12 Hours) Vital Signs Temp Pulse Pulse Pulse Resp BP Pulse Ox 08/14/22 11:02 37.3 C 75 18 133/68 96 08/14/22 07:35 77 08/14/22 07:35 08/14/22 07:20 36.9 C 77 20 130/70 95 08/14/22 03:27 76 08/14/22 03:12 37.2 C 72 18 130/78 96 O2 Del Method 08/14/22 11:02 Room Air 08/14/22 07:35 08/14/22 07:35 Room Air 08/14/22 07:20 Room Air 08/14/22 03:27 08/14/22 03:12 Room Air all noted and reviewed including below (1) Anemia Anemia type: unspecified type Qualified Code(s): D64.9 - Anemia, unspecified
[2022-08-14] MEDS: SODIUM CHLORIDE 0.9% 1000ML 1,000 ML IV SCH (15:25)
[2022-08-14] MEDS: TAMSULOSIN HCL 0.4 MG CAP PO SCH (21:08)
[2022-08-15] MEDS: ENOXAPARIN 80 MG/0.8 ML SYR SQ SCH ×2 (00:30→12:09)
[2022-08-15] MEDS: SODIUM CHLORIDE 0.9% 1000ML 1,000 ML IV SCH (08:12)
[2022-08-15] MEDS: carvediloL 12.5 MG TAB PO SCH ×2 (08:12→20:01)
[2022-08-15] MEDS: DOXYCYCLINE HYCLATE 100 MG CAP PO SCH ×2 (08:12→20:01)
[2022-08-15] MEDS: FERROUS SULFATE 325 MG TAB PO SCH (08:12)
[2022-08-15] MEDS: BACLOFEN 10 MG TAB PO SCH (08:12)
[2022-08-15] MEDS: PANTOprazole 40 MG in SYRINGE 0 ML IV SCH ×2 (08:12→20:01)
[2022-08-15] MEDS: FOLIC ACID 1 MG TAB PO SCH (08:12)
[2022-08-15] MEDS: MAGNESIUM OXIDE 400 MG TAB PO SCH (08:12)
[2022-08-15] MEDS: INSULIN ASPART PER UNIT CHARGE SC SCH ×4 (08:19→20:19)
[2022-08-15 08:28] LABS: BUN Creatinine Ratio 39.5 (10-20); Calcium 7.5 mg/dl (8.5-10.1); Creatinine Clr Calc Pharmacy 209.2 ml/min; Est GFR (African American) 148.6 ml/min; Est GFR (Non-African American) 128.2 ml/min; Magnesium 1.5 mg/dl (1.7-2.4); Potassium 3.6 mmol/L (3.5-5.1)
[2022-08-15 09:59] LABS: Basophils # (auto) 0.04 K/uL (0-0.2); Basophils % (auto) 0.6 %; Eosinophils # (auto) 0.09 K/uL (0-0.50); Eosinophils % (auto) 1.3 %; Hematocrit (blood only) 32.9 % (42.0-52.0); Hemoglobin 10.1 g/dl (14.0-18.0); Immature Granulocytes # (auto) 0.04 K/uL (0.01-0.20); Immature Granulocytes % (auto) 0.6 %; Lymphocytes # (auto) 1.13 K/uL (1.2-3.4); Mean Corpuscular Hemoglobin 25.3 pg (25.0-34.0); Mean Corpuscular Hgb Conc 30.7 g/dL (32.0-36.0); Mean Corpuscular Volume 82.5 fL (80.0-100.0); Mean Platelet Volume 9.3 fL (9.4-12.4); Monocytes # (auto) 0.35 K/uL (0.11-0.59); Neutrophils % (auto) 76.5 %; Platelet Count 333 K/uL (130-400); RDW Coefficient of Variation 19.4 % (11.5-14.5); Red Blood Count 3.99 M/uL (4.70-6.10); White Blood Count 7.05 K/ul (4.8-10.8)
--- NOTE | 2022-08-15 15:01 | Hospitalist Progress Note ---
Date of Service August 15, 2022 Assessment & Plan (1) Anemia: Plan: (1)Acute blood loss anemia, likely secondary to right thigh hematoma, spontaneous, in the setting of Lovenox and Plavix use History of Recurrent DVT, and CVA Plan: Patient presenting from home with reported increased lethargy, taking Lovenox 120mg BID and Plavix As an outpatient, patient has been noted to have a downtrending hemoglobin (11.5 --> 8.0 --> 9.1 --> 8.9 on 07/27). Patient was started on iron replacement. 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 Colonoscopy was considered however patient was felt to not likely be able to tolerate the prep. In the ED, Hgb 5.9. Patient hemodynamically stable. CT abdomen/pelvis/angio: There is a large hematoma involving the medial aspect of the upper thigh measuring approximately 5.5 x 6.5 cm in axial dimension. Questionable heterogeneous density surrounding the right femur are concerning for second hematoma and measuring 5.7 x 5.5 cm in axial dimension. There is no evidence of active bleed. [facility] Gen surg consulted: no surgery recommended [employer] Manager consulted: Dr. Richey- recommend to gradually start Lovenox- 40mg daily, then BID, then 80mg BID 08/15 Status posttransfusion of 4 units packed RBCs Hemoglobin improved from 5.9 to ~9-10 R thigh edema resolved repeat CT of the thigh: stable hematoma Hg remains stable since Lovenox 80mg BID started yesterday, patient to remain on this dose upon discharge usual Plavix to be restarted today monitor H&H (2) Elevated troponin: (3) CAD (coronary artery disease): Plan: Likely due to demand ischemia in the setting of profound anemia Continue beta-josé and statin, hold clopidogrel due to profound anemia/possible acute bleeding. ASA discontinued previously due to ongoing anemia. Cardiology consult, Dr. Pan notified by ED provider 08/15 Troponin flat, 1100, 1300, 1000 EKG: No signs of acute ischemia or infarct Echo 45 to 45%, mild apical wall hypokinesis Cardiology service consulted-no further further interventions at this point restart Plavix today Possible UTI Urine culture x 2: Coag Neg Staph discussed with Erica GIBBS given Dapto x 2 days, transition to Doxycycline x 3 days remove Hagan cath tomorrow (4) Type 2 diabetes mellitus: Plan: Hgb A1c 5.2 06/2022 Lantus 8 units in AM NovoLog per protocol Monitor BSG's closely (5) History of CVA (cerebrovascular accident): Plan: History of recurrent CVA despite DAPT and anticoagulation therapy Chronic right hemiplegia/left arm paralysis/mostly nonverbal/expressive aphasia management of Lovenox + PLavix per above (6) H/O deep venous thrombosis: Plan: History of breakthrough DVT while on warfarin and Eliquis therapy, now on therapeutic dose Lovenox per above (7) HTN (hypertension): Plan: restart Lisinopril (8) DVT prophylaxis: Plan: on Lovenox BID per above Disposition lives with at home plan of care discussed with patient's daily in detail and at length all questions answered she is understanding, agreeable, comfortable with the plan of care Admission and Anticipated Discharge Date Admission Date: August 09, 2022 Subjective ff up for acute blood loss anemia, spontaneous R thigh hematoma on Lovenox, etc seen resting in bed, sleeping but easily awakened answers in words no pain, shortness of breath no signs of discomfort, distress no bleeding noted appetite is good per clinical staff educator no other symptoms Review of Systems Review of Systems: all noted and negative except for above Physical Exam Physical Exam: General- not in distress, breathing with no effort or accessory muscle use Eyes- anicteric Neck- no JVD Lungs- clear breath sounds bilaterally, no rales/wheezes Heart- normal rate, regular rhythm; no murmurs Abdomen- normal bowel sounds, nondistended, soft, nontender Sacrum- Stage 2 pressure ulcer, no signs of infection, no discharge Extremities- LUE: moderate edema, no erythema/warmth/tenderness RLE: thigh- mild edema, fem cath in place- no signs of infection no pretibial edema, no calf tenderness Neuro- no new gross focal neurologic deficits Skin- warm & dry Results & Data [facility] ([facility]) Vital Signs (Past 12 Hours) Vital Signs Temp Pulse Pulse Resp BP Pulse Ox O2 Del Method 08/15/22 11:12 37.0 C 76 18 134/76 95 Room Air 08/15/22 08:00 80 08/15/22 08:00 Room Air 08/15/22 07:18 36.4 C L 71 18 130/72 96 Room Air 08/15/22 03:24 37.1 C 75 16 133/74 93 Room Air all noted and reviewed including below (1) Anemia Anemia type: unspecified type Qualified Code(s): D64.9 - Anemia, unspecified
[2022-08-15] MEDS: CLOPIDOGREL BISULFATE 75 MG TAB PO SCH (16:13)
[2022-08-15] MEDS: MAGNESIUM SULFATE / D5W 1 GM/100 ML BAG IV SCH ×2 (16:58→19:18)
[2022-08-15] MEDS: TAMSULOSIN HCL 0.4 MG CAP PO SCH (20:02)
--- NOTE | 2022-08-15 23:30 | Hospitalist Progress Note ---
Date of Service August 15, 2022 Assessment & Plan (1) H/O deep venous thrombosis: Plan: Transitioning to what would usually be "full dose" enoxaparin at 80 mg subcutaneously twice daily as clopidogrel continues. Although his prehospital dose had been 120 mg twice daily, as per previous discussion it is not clear if there is a defined role for supratherapeutic dosing of enoxaparin. There are precedents where standard dosing produced suboptimal anti-Xa levels and a higher than usual dose might be important if that is the case. However, once therapeutic dosing is assured, particularly where he has now had a potentially threatening bleeding episode, I would be wary of further dose increases especially while he is on antiplatelet therapy out of concern for further bleeding If an additional thrombosis event occurs, there would have been discussion of the use of alternative agents, whether or not an IVC filter would be a consideration, or even whether dual antiplatelet therapy might be worthwhile depending upon the nature of the thrombosis. For now, however, would suggest he stay on the 80 mg subcutaneously twice daily dose, consider checking an anti-Xa level to assure that it is in the therapeutic range, and continue to monitor closely (2) Anemia: Plan: Hemoglobin does seem to be more consistently stable and is currently in double- digit range. Would be worthwhile to recheck both ferritin and an iron panel (serum iron/TIBC/percent saturation) along with repeat hemoglobin in approximately 1 week using that to determine the need for further iron supplementation. Goal would be for percent saturation to exceed 20% and ferritin to be maintained greater than 100 ng/mL but tolerated up to 500 ng/mL if necessary to achieve an increase in percent saturation. Higher potential target levels of ferritin to account for any pseudonormalization that may be falsely suggesting higher levels of iron using that as the measure. Plan 1. Continue enoxaparin at 80 mg subcutaneously twice daily so long as there is no sign of new bleeding. Would be worthwhile to check an anti-Xa level 4 hours after an upcoming dose so long as it is no earlier than the fourth dose at this level. Would make further adjustments only if necessary to bring that into the therapeutic range. 2. Would recheck his iron studies and hemoglobin in 1 week with additional potential iron supplementation based on results, see details above 3. It is not clear that adjusting enoxaparin beyond simply achieving therapeutic range is clearly of further benefit and certainly status post a life-threatening bleed, will have to be concerned about additional hemorrhage. As patient transitions outpatient he should reconnect with an anticoagulation clinic for further discussions can set a plan for longer-term anticoagulation strategy. If he were to have a new thrombosis episode, there may need to be specific discussion of the role, if any, for an IVC filter, potential alternative agents, or even the addition of a second antiplatelet agent depending on the type of thrombosis that occurs Anticipating discharge in the near future, hematology will sign off but we are happy to be available if there are additional concerns or questions that arise in the future. Admission and Anticipated Discharge Date Admission Date: August 09, 2022 Subjective Hemoglobin has stabilized Physical Exam Physical Exam: VSS Results & Data Results & Data ([facility]) Vital Signs (Past 12 Hours) Vital Signs Temp Pulse Pulse Resp BP Pulse Ox O2 Del Method 08/15/22 23:02 37.3 C 68 20 107/57 L 95 Room Air 08/15/22 20:26 Room Air 08/15/22 18:59 36.6 C 95 H 20 169/89 H 98 Room Air 08/15/22 15:59 37.0 C 77 18 122/71 96 Room Air 08/15/22 15:53 74 PG Care Time/CCT Total # of Minutes Spent Total Time Spent with Patient: Total time spent is greater than 50% in coordination of care (as documented) at patient's floor/unit and/or counseling patient: Coding Level of Care Code 72451 SUB INP/OBS CARE 1/25MIN Diagnoses H/O deep venous thrombosis Z86.718 Anemia D64.9 Anemia type: unspecified type (2) Anemia Anemia type: unspecified type Qualified Code(s): D64.9 - Anemia, unspecified
[2022-08-16] MEDS: SODIUM CHLORIDE 0.9% 1000ML 1,000 ML IV SCH (00:32)
[2022-08-16] MEDS: ENOXAPARIN 80 MG/0.8 ML SYR SQ SCH ×3 (00:32→23:09)
[2022-08-16 06:47] LABS: Basophils # (auto) 0.03 K/uL (0-0.2); Basophils % (auto) 0.6 %; Eosinophils # (auto) 0.12 K/uL (0-0.50); Eosinophils % (auto) 2.2 %; Hematocrit (blood only) 33.8 % (42.0-52.0); Hemoglobin 10.2 g/dl (14.0-18.0); Immature Granulocytes # (auto) 0.02 K/uL (0.01-0.20); Immature Granulocytes % (auto) 0.4 %; Lymphocytes # (auto) 1.47 K/uL (1.2-3.4); Lymphocytes % (auto) 27.4 %; Mean Corpuscular Hemoglobin 25.1 pg (25.0-34.0); Mean Corpuscular Hgb Conc 30.2 g/dL (32.0-36.0); Mean Corpuscular Volume 83.3 fL (80.0-100.0); Monocytes # (auto) 0.28 K/uL (0.11-0.59); Monocytes % (auto) 5.2 %; Neutrophils # (auto) 3.44 K/uL (1.40-6.50); Neutrophils % (auto) 64.2 %; Platelet Count 330 K/uL (130-400); RDW Coefficient of Variation 20.1 % (11.5-14.5); RDW Standard Deviation 60.1 fL (36.4-46.3); Red Blood Count 4.06 M/uL (4.70-6.10); White Blood Count 5.36 K/ul (4.8-10.8)
[2022-08-16 07:05] LABS: BUN Creatinine Ratio 36.8 (10-20); Calcium 7.6 mg/dl (8.5-10.1); Creatinine Clr Calc Pharmacy 201.7 ml/min; Est GFR (African American) 148.6 ml/min; Est GFR (Non-African American) 128.2 ml/min; Potassium 3.6 mmol/L (3.5-5.1)
[2022-08-16 07:31] LABS: Echinocytes 2+; Polychromasia 1+
[2022-08-16] MEDS: INSULIN ASPART PER UNIT CHARGE SC SCH ×4 (07:41→21:37)
[2022-08-16] MEDS: LANTUS PER UNIT CHARGE SQ SCH (08:09)
[2022-08-16] MEDS: PANTOprazole 40 MG in SYRINGE 0 ML IV SCH ×2 (08:10→21:15)
[2022-08-16] MEDS: MAGNESIUM OXIDE 400 MG TAB PO SCH (08:11)
[2022-08-16] MEDS: DOXYCYCLINE HYCLATE 100 MG CAP PO SCH ×2 (08:11→21:15)
[2022-08-16] MEDS: BACLOFEN 10 MG TAB PO SCH (08:11)
[2022-08-16] MEDS: carvediloL 12.5 MG TAB PO SCH ×2 (08:11→21:15)
[2022-08-16] MEDS: CLOPIDOGREL BISULFATE 75 MG TAB PO SCH (08:11)
[2022-08-16] MEDS: FERROUS SULFATE 325 MG TAB PO SCH (08:12)
[2022-08-16] MEDS: FOLIC ACID 1 MG TAB PO SCH (08:12)
--- NOTE | 2022-08-16 14:05 | Communication Note ---
Date of Service: August 16, 2022 GI service is asked to provide an IP colonoscopy on this pt who is unable to arrange transportation for OP colonoscopy. Indication FOBT+. He has anemia thought secondary to a large hematoma on anticoagulation. Discussed w Dr. Bonilla. OK to hold the Plavix now, hold the Lovenox 12 hrs prior and do Colonoscopy on . Unable to do sooner due to being on Plavix. Colonoscopy ordered. Plavix held. Will order colon prep and NPO the day prior.
--- NOTE | 2022-08-16 14:54 | Hospitalist Progress Note ---
Date of Service August 16, 2022 Assessment & Plan (1) Anemia: Plan: (1)Acute blood loss anemia, likely secondary to right thigh hematoma, spontaneous, in the setting of Lovenox and Plavix use History of Recurrent DVT, and CVA Plan: Patient presenting from home with reported increased lethargy, taking Lovenox 120mg BID and Plavix As an outpatient, patient has been noted to have a downtrending hemoglobin (11.5 --> 8.0 --> 9.1 --> 8.9 on 07/27). Patient was started on iron replacement. 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 Colonoscopy was considered however patient was felt to not likely be able to tolerate the prep. In the ED, Hgb 5.9. Patient hemodynamically stable. CT abdomen/pelvis/angio: There is a large hematoma involving the medial aspect of the upper thigh measuring approximately 5.5 x 6.5 cm in axial dimension. Questionable heterogeneous density surrounding the right femur are concerning for second hematoma and measuring 5.7 x 5.5 cm in axial dimension. There is no evidence of active bleed. [facility] consulted: no surgery recommended Human Resources Safety Manager consulted: Dr. Richey- recommend to gradually start Lovenox- 40mg daily, then BID, then 80mg BID. Patient tolerated 2 days of Lovenox 80 mg twice daily; plan to obtain anti-Xa level 4 hours after the dose of Lovenox today afternoon. 08/16 Status posttransfusion of 4 units packed RBCs Hemoglobin improved from 5.9 to ~9-10 R thigh edema resolved repeat CT of the thigh: stable hematoma Hg remains stable since Lovenox 80mg BID started 2 days, patient to remain on this dose upon discharge monitor H&H Patient was unable to complete anemia work-up as inpatient in January 2022; GI contacted; colonoscopy to be done on . Asked Plavix to be kept on hold. (2) Elevated troponin: (3) CAD (coronary artery disease): Plan: Likely due to demand ischemia in the setting of profound anemia Continue beta-josé and statin, hold clopidogrel due to profound anemia/possible acute bleeding. ASA discontinued previously due to ongoing anemia. 08/16 Troponin flat, 1100, 1300, 1000 EKG: No signs of acute ischemia or infarct Echo 45 to 45%, mild apical wall hypokinesis Cardiology service consulted-no further further interventions at this point Possible UTI Urine culture x 2: Coag Neg Staph discussed with Erica GIBBS given Dapto x 2 days, transition to Doxycycline x 3 days Hagan cath removed; trial of void. (4) Type 2 diabetes mellitus: Plan: Hgb A1c 5.2 06/2022 Lantus 8 units in AM NovoLog per protocol Monitor BSG's closely (5) History of CVA (cerebrovascular accident): Plan: History of recurrent CVA despite DAPT and anticoagulation therapy Chronic right hemiplegia/left arm paralysis/mostly nonverbal/expressive aphasia management of Lovenox + PLavix per above. Plavix presently on hold. (6) H/O deep venous thrombosis: Plan: History of breakthrough DVT while on warfarin and Eliquis therapy, now on therapeutic dose Lovenox per above (7) HTN (hypertension): Plan: restart Lisinopril (8) DVT prophylaxis: Plan: on Lovenox BID per above Disposition lives with at home plan of care discussed with patient's daily in detail and at length all questions answered Admission and Anticipated Discharge Date Admission Date: August 09, 2022 Subjective Patient seen and examined at bedside. He appears to baseline mental status; not in distress. Hemoglobin remained stable at 10.2 g/ DL. Review of Systems Review of Systems: All systems reviewed & are unremarkable except as noted in Subjective Physical Exam Physical Exam: General- not in distress, breathing with no effort or accessory muscle use Eyes- anicteric Neck- no JVD Lungs- clear breath sounds bilaterally, no rales/wheezes Heart- normal rate, regular rhythm; no murmurs Abdomen- normal bowel sounds, nondistended, soft, nontender Sacrum- Stage 2 pressure ulcer, no signs of infection, no discharge Extremities- LUE: moderate edema, no erythema/warmth/tenderness RLE: thigh- mild edema, fem cath in place- no signs of infection no pretibial edema, no calf tenderness Neuro- no new gross focal neurologic deficits Skin- warm & dry Results & Data Results & Data ([facility]) Vital Signs (Past 12 Hours) Vital Signs Temp Pulse Pulse Resp BP Pulse Ox O2 Del Method 08/16/22 11:17 36.5 C 76 18 129/76 97 Room Air 08/16/22 07:33 36.6 C 76 18 131/80 96 Room Air 08/16/22 07:15 71 08/16/22 07:15 Room Air 08/16/22 04:08 37.2 C 72 18 125/75 95 Room Air Laboratory Results Laboratory Results WBC 5.36 K/ul (4.8-10.8) 08/16/22 06:00 RBC 4.06 M/uL (4.70-6.10) L 08/16/22 06:00 Hgb 10.2 g/dl (14.0-18.0) L 08/16/22 06:00 Hct 33.8 % (42.0-52.0) L 08/16/22 06:00 MCV 83.3 fL (80.0-100.0) 08/16/22 06:00 MCH 25.1 pg (25.0-34.0) 08/16/22 06:00 MCHC 30.2 g/dL (32.0-36.0) L 08/16/22 06:00 RDW Std Deviation 60.1 fL (36.4-46.3) H 08/16/22 06:00 RDW Coeff of Caroline 20.1 % (11.5-14.5) H 08/16/22 06:00 Plt Count 330 K/uL (130-400) 08/16/22 06:00 MPV 10.0 fL (9.4-12.4) 08/16/22 06:00 Immature Gran % (Auto) 0.4 % 08/16/22 06:00 Neut % (Auto) 64.2 % 08/16/22 06:00 Lymph % (Auto) 27.4 % 08/16/22 06:00 [place] % (Auto) 5.2 % 08/16/22 06:00 Eos % (Auto) 2.2 % 08/16/22 06:00 Baso % (Auto) 0.6 % 08/16/22 06:00 Neut # (Auto) 3.44 K/uL (1.40-6.50) 08/16/22 06:00 Lymph # (Auto) 1.47 K/uL (1.2-3.4) 08/16/22 06:00 [place] # (Auto) 0.28 K/uL (0.11-0.59) 08/16/22 06:00 Eos # (Auto) 0.12 K/uL (0-0.50) 08/16/22 06:00 Baso # (Auto) 0.03 K/uL (0-0.2) 08/16/22 06:00 Immature Gran # (Auto) 0.02 K/uL (0.01-0.20) 08/16/22 06:00 Polychromasia 1+ 08/16/22 06:00 Anisocytosis Present 08/09/22 15:05 Ovalocytes 1+ 08/09/22 15:05 Echinocytes 2+ 08/16/22 06:00 PT 13.0 Seconds (9.0-12.0) H 08/09/22 15:05 INR 1.2 (0.9-1.1) H 08/09/22 15:05 APTT 33.1 Seconds (21.0-31.0) H 08/09/22 15:05 PTT Ratio 1.2 08/09/22 15:05 Sodium 143 mmol/L (136-145) 08/16/22 06:00 Potassium 3.6 mmol/L (3.5-5.1) 08/16/22 06:00 Chloride 114 mmol/L (98-107) H 08/16/22 06:00 Carbon Dioxide 25 mmol/L (21-32) 08/16/22 06:00 Anion Gap 4 (3-11) 08/16/22 06:00 BUN 14 mg/dl (6-23) 08/16/22 06:00 Creatinine 0.38 mg/dl (0.6-1.4) L 08/16/22 06:00 Est Cr Clr Drug Dosing 201.7 ml/min 08/16/22 06:00 Est GFR ( Amer) 148.6 ml/min 08/16/22 06:00 Est GFR (Non-Af Amer) 128.2 ml/min 08/16/22 06:00 BUN/Creatinine Ratio 36.8 (10-20) H 08/16/22 06:00 Glucose 166 mg/dl (70-99(Fasting)) H 08/16/22 06:00 POC Glucose 201 mg/dl (70-99) H 08/16/22 11:08 Lactate 1.5 mmol/L (0.4-2.0) 08/09/22 15:05 Calcium 7.6 mg/dl (8.5-10.1) L 08/16/22 06:00 Phosphorus 3.2 mg/dl (2.5-4.9) 08/10/22 07:31 Magnesium 1.5 mg/dl (1.7-2.4) L 08/15/22 06:16 Iron 34 mcg/dl (35-175) L 08/13/22 06:01 TIBC 184 mcg/dl (250-450) L 08/13/22 06:01 Unsaturated IBC 150 mcg/dl (155-355) L 08/13/22 06:01 Transferrin 161 mg/dl (200-360) L 08/10/22 12:50 Transferrin % Sat 18 % (20-50) L 08/13/22 06:01 Ferritin 256.6 ng/ml (8-388) 08/10/22 12:50 Total Bilirubin 0.9 mg/dl (0.2-1.0) 08/09/22 15:05 Direct Bilirubin 0.1 mg/dl (0-0.2) 08/09/22 15:05 AST 7 U/L (13-39) L 08/09/22 15:05 ALT 14 U/L (7-52) 08/09/22 15:05 Alkaline Phosphatase 109 U/L (34-104) H 08/09/22 15:05 Ammonia 25.0 umol/L (18-72) 08/09/22 15:05 Total Creatine Kinase 175 U/L (30-223) 08/09/22 15:05 Troponin I High Sens 1008.3 pg/ml (0-20) H* D 08/10/22 07:31 Total Protein 5.5 gm/dl (6.0-8.3) L 08/09/22 15:05 Albumin 2.6 gm/dl (3.4-5.0) L 08/09/22 15:05 Vitamin B12 436 pg/ml (180-914) 08/10/22 12:50 Procalcitonin 0.05 ng/ml (0-0.5) 08/09/22 15:05 TSH 2.154 uIu/ml (0.300-4.500) 08/13/22 18:24 Urine Color [place] 08/11/22 00:41 Urine Appearance Clear (Clear) 08/11/22 00:41 Urine pH 5.5 (4.5-7.5) 08/11/22 00:41 Ur Specific [place] 1.040 (1.000-1.030) H 08/11/22 00:41 Urine Protein Trace (Negative) H 08/11/22 00:41 Urine Glucose (UA) Negative (Negative) 08/11/22 00:41 Urine Ketones Trace (Negative) H 08/11/22 00:41 Urine Blood Negative (Negative) 08/11/22 00:41 Urine Nitrite Positive (Negative) A 08/11/22 00:41 Urine Bilirubin Negative (Negative) 08/11/22 00:41 Urine Urobilinogen Negative (Negative) 08/11/22 00:41 Ur Leukocyte Esterase 2+ (Negative) H 08/11/22 00:41 Urine WBC (Auto) >30 /hpf (0-5) H 08/11/22 00:41 Urine RBC (Auto) 0-4 /hpf (0-4) 08/11/22 00:41 U Hyaline Cast (Auto) 1-5 /lpf (0-5) 08/11/22 00:41 U Epithel Cells (Auto) 0-5 /lpf (0-5) 08/11/22 00:41 Urine Bacteria (Auto) Negative (Negative) 08/11/22 00:41 Ur Renal Epithelial Cell Not Reportable 08/09/22 15:50 Urine Yeast Not Reportable 08/11/22 00:41 Stool Occult Bld Scrn Negative (Negative) 08/14/22 11:16 SARS-CoV-2 (PCR) NEGATIVE (Negative) 08/09/22 16:00 Influenza Type A (PCR) Negative (Neg) 08/09/22 16:00 Influenza Type B (PCR) Negative (Neg) 08/09/22 16:00 RSV (RT-PCR) Negative (Neg) 08/09/22 16:00 Blood Type A Positive 08/09/22 15:09 Antibody Screen NEGATIVE 08/09/22 15:09 Crossmatch See Detail 08/09/22 15:[address] 08/09/22 12:34 CT SCAN OF THE BRAIN WITHOUT IV CONTRAST CLINICAL HISTORY: Lethargy. COMPARISON STUDY: CT of the brain dated 08/20/2021. TECHNIQUE: Unenhanced axial CT scan of the brain is performed from the vertex to the skull base. A dose lowering technique was utilized adhering to the principles of ALARA. CT DOSE: 614.27 mGy.cm FINDINGS: Brain parenchyma: There is age-advanced involutional change noting advanced c onfluent subcortical and periventricular microangiopathic disease. There is no hemorrhage, mass effect, or evidence of acute territorial ischemia by CT criteria. A small chronic infarct is noted in the high right parietal lobe. Rose-white matter differentiation is preserved. No extra-axial fluid collection is seen. Ventricles, sulci, cisterns: Prominent secondary to involutional change. Intracranial vasculature: There is atherosclerotic calcification of the cavernous carotid and vertebral arteries. Calvarium: Unremarkable. Sinuses and mastoids: The visualized paranasal sinuses are clear. The mastoid air cells are well pneumatized. Orbits: The bony orbits are grossly intact. IMPRESSION: There is no hemorrhage, mass effect, or evidence of acute territorial ischemia by CT criteria. ACT 112: Negative or not required by law. Electronically signed by: Donny Fernando M.D. 08/09/2022 3:38 PM Abdomen/Pelvis CT 08/10/22 00:22 CR Exam(s): CT ABDOMEN + PELVIS Without Contrast EXAM: CT Abdomen and Pelvis Without Intravenous Contrast CLINICAL HISTORY: Reason for exam: anemia. any bleeding?. TECHNIQUE: Axial computed tomography images of the abdomen and pelvis without intravenous contrast. CTDI is 16.7 mGy and DLP is 945.35 mGy-cm. Automated exposure control was utilized for the study. A dose lowering technique was utilized adhering to the principles of ALARA. COMPARISON: CT Abdomen Pelvis dated 03/18/2020 FINDINGS: Artifacts: Artifact in the upper abdomen from patient's arms. Lung bases: See below. Pleural space: Small bilateral pleural effusions greater on the left. Mild bibasilar atelectasis. Heart: Marked coronary artery calcifications. ABDOMEN: Liver: Unremarkable. Gallbladder and bile ducts: Unremarkable. No calcified stones. No ductal dilation. Pancreas: Unremarkable. No ductal dilation. Spleen: Unremarkable. No splenomegaly. Adrenals: Nodular adrenal glands, similar to the prior. Kidneys and ureters: Left renal low-density lesion better seen on the prior. No obstructing stones. No hydronephrosis. Stomach and bowel: Large amount of stool within distended rectum. No mucosal thickening. No bowel obstruction. PELVIS: Appendix: No findings to suggest acute appendicitis. Bladder: Bladder wall thickening of partially distended bladder. No stones. Reproductive: Unremarkable as visualized. ABDOMEN and PELVIS: Intraperitoneal space: See above. Bones/joints: Median sternotomy wires. Minimal sclerosis of the left inferior pubic ramus, new since the prior. Soft tissues: Enlarged right abductor musculature which appears hyperdense. Partially visualized on the inferior most images. Approximately 5 cm in transverse dimension. Dystrophic soft tissue calcifications/heterotopic ossification bilaterally in the musculature between the inferior pubic rami and proximal femurs. Chronic appearance although new since the prior study. Partially visualized. Anasarca. Soft tissue calcifications noted in the left forearm soft tissues, partially visualized. Vasculature: Marked diffuse atherosclerotic calcifications. Lymph nodes: Unremarkable. No enlarged lymph nodes. Tubes, lines and devices: Right this catheter with the tip in the right common iliac vein. IMPRESSION: 1. Enlarged right abductor musculature which appears hyperdense. Partially visualized on the inferior most images. Likely represents hematoma, approximately 5 cm in transverse dimension. Active bleeding or underlying lesion not excluded. 2. Large amount of stool within distended rectum. 3. Bladder wall thickening of partially distended bladder. May reflect cystitis or chronic bladder obstruction. 4. Dystrophic soft tissue calcifications/heterotopic ossification bilaterally in the musculature between the inferior pubic rami and proximal femurs. Chronic appearance although new since the prior study. Partially visualized. 5. Minimal sclerosis of the left inferior pubic ramus, new since the prior. Nonspecific. Correlate for infectious/inflammatory or neoplastic process. 6. Anasarca. 7. Small bilateral pleural effusions greater on the left. Mild bibasilar atelectasis. Communications: Verify Receipt Call Doctor Above results Electronically signed by: Thiago Wheeler M.D. 08/10/22 02:28 AM Lower Extremity CTA 08/10/22 02:42 Exam(s): CTA EXTREMITY RIGHT LOWER W/WO Contrast IV Amt: 105 ml optiray 320 EXAM: CT Angiography of the Right Lower Extremity With Intravenous Contrast CLINICAL HISTORY: Reason for exam: right thigh hematoma. active bleeding?. TECHNIQUE: Axial computed tomographic angiography images of the right lower extremity with intravenous contrast. CTDI is 49.29 mGy and DLP is 1250.2 mGy-cm. Automated exposure control was utilized for the study. A dose lowering technique was utilized adhering to the principles of ALARA. MIP reconstructed images were created and reviewed. CONTRAST: Patient received 105 ml optiray 320 of IV contrast COMPARISON: None. FINDINGS: VASCULATURE: Aorta: Severe calcified atherosclerotic disease tibioperoneal trunk. There is calcified atherosclerotic disease of aorta with no aneurysm. Right iliac arteries: Mild calcified atherosclerotic disease throughout the right external iliac artery with no significant stenosis. Right femoral/popliteal arteries: Scattered calcified atherosclerotic disease throughout the right superficial femoral artery, more severe distally. Cannot exclude areas of moderate to high-grade stenosis involving the distal superficial femoral artery. Severe atherosclerotic disease of the popliteal artery with areas of moderate to high-grade stenosis. Right calf/foot arteries: Severe disease through the right anterior tibial artery with multiple areas of high-grade stenosis in a short segment occlusions. Severe disease through the posterior tibial artery with multiple areas of high-grade stenosis and short segment occlusion. Distal reconstitution at the ankle noted. Moderate disease through the peroneal artery seen as a continuous vessel to the ankle. LOWER EXTREMITY: Bones/joints: There is a right-sided femoral line in place. Soft tissues: There is a large hematoma involving the medial aspect of the upper thigh measuring approximately 5.5 x 6.5 cm in axial dimension. Questionable heterogeneous density surrounding the right femur are concerning for second hematoma and measuring 5.7 x 5.5 cm in axial dimension. There is no evidence of active bleed. Bladder: Intrapelvic structures revealed borderline thickening of urinary bladder wall, cannot exclude cystitis. IMPRESSION: 1. Hematoma involving the medial and upper aspect of the right thigh and surrounding the mid cephalad femur. No evidence of active bleed. 2. Severe atherosclerotic disease involving the right lower extremity more significant through the distal superficial femoral and popliteal artery with areas of high-grade stenosis distally. 3. Severe disease through the trifurcation vessels with single vessel runoff through the peroneal artery. Multiple areas of high-grade stenosis or occlusions with the anterior tibial artery and posterior tibial artery as described. Electronically signed by: Merline Macias MD 08/10/22 05:[address] 08/10/22 09:47 CT forearm LT wo con, CT humerus LT wo con CLINICAL HISTORY: edema, r/o hematoma TECHNIQUE: Multidetector row helical CT of the left forearm and left humerus was performed without intravenous contrast. Coronal and sagittal reformations were obtained. Automated dose lowering techniques and/or adjustment according to patient size were utilized for this examination. Comparison: None available at the time of this dictation. FINDINGS: Heterotopic ossification is seen about the elbow. The joint spaces are maintained. No joint effusion is seen. Soft tissue edema is seen about the elbow and forearm without discrete drainable fluid collection. Atherosclerosis is noted. IMPRESSION: Soft tissue edema and heterotopic ossification. This may represent cellulitis, simple edema or contusion. No discrete fluid collection is seen. ACT 112: Negative or not required by law. Electronically signed by: Bradley Reeves M.D. 08/10/2022 11:[address] 08/10/22 09:47 CT forearm LT wo con, CT humerus LT wo con CLINICAL HISTORY: edema, r/o hematoma TECHNIQUE: Multidetector row helical CT of the left forearm and left humerus was performed without intravenous contrast. Coronal and sagittal reformations were obtained. Automated dose lowering techniques and/or adjustment according to patient size were utilized for this examination. Comparison: None available at the time of this dictation. FINDINGS: Heterotopic ossification is seen about the elbow. The joint spaces are maintained. No joint effusion is seen. Soft tissue edema is seen about the elbow and forearm without discrete drainable fluid collection. Atherosclerosis is noted. IMPRESSION: Soft tissue edema and heterotopic ossification. This may represent cellulitis, simple edema or contusion. No discrete fluid collection is seen. ACT 112: Negative or not required by law. Electronically signed by: Bradley Reeves M.D. 08/10/2022 11:42 AM Chest X-Ray 08/10/22 13:38 XR chest 1V portable CLINICAL HISTORY: r/o pneumonia,edema TECHNIQUE: Single frontal radiograph of the chest was obtained. Comparison: Comparison is made to chest radiograph 08/09/2022 FINDINGS: Median sternotomy wires are unchanged. Calcified aortic knob is seen. The lungs are clear. No evidence of pleural effusion or pneumothorax. IMPRESSION: No acute abnormalities and in particular no radiographic evidence of pneumonia. ACT 112: Negative or not required by law. Electronically signed by: Bradley Reeves M.D. 08/10/2022 3:[address] 03/10/23 07:35 CT femur RT wo con HISTORY: 62 years-old Male ff up hematoma follow-up study in a patient with reported right thigh hematoma COMPARISON: CTA right lower extremity 08/10/2022 TECHNIQUE: Multiple axial CT images of the right femur were obtained without the use of IV contrast. A dose lowering technique was used consistent with the principals of S[place]AGO. FINDINGS: Decompressed urinary bladder with Hagan catheter. Prostamegaly. Moderate fecal retention of the rectum with mild nonspecific circumferential rectal wall thickening. Trace free fluid within the pelvis. Extensive vascular calcifications. Mild right inguinal lymphadenopathy with lymph nodes measuring u p to 1.1 cm. Intramuscular hematomas are again noted throughout the right pelvis and thigh. Ill-defined intramuscular hemorrhage within the right adductor space measures up to approximately 8.6 x 5.5 cm, stable. Large area of hemorrhage within the proximal right upper thigh, located within the vastus intermedius measuring up to 6.8 x 6.4 x 17 cm has not significantly changed. Smaller hematoma within the vastus medialis is also similar in size. Moderate diffuse subcutaneous and deep tissue edema of the bladder and right upper extremity. 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 Demineralized appearance of the bones. There is no acute fracture, dislocation, osseous erosion or suspicious bone lesion identified. Moderate osteoarthritis of the hip and medial compartment right knee with mild patellofemoral and lateral compartment osteoarthritis. IMPRESSION: 1. Large intramuscular hematomas within the right adductor space and right quad riceps appear generally stable compared to the study from 08/10/2022. 2. No acute fracture or dislocation identified. 3. 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 4. Diffuse subcutaneous and deep tissue edema redemonstrated. ACT 112: Negative or not required by law. The above report was generated using voice recognition software. It may contain grammatical, syntax or spelling errors. Electronically signed by: Abdon Gr M.D. 08/13/2022 9:27 AM (1) Anemia Anemia type: unspecified type Qualified Code(s): D64.9 - Anemia, unspecified
[2022-08-16] MEDS: TAMSULOSIN HCL 0.4 MG CAP PO SCH (21:15)
[2022-08-17] MEDS: INSULIN ASPART PER UNIT CHARGE SC SCH ×4 (08:35→21:02)
[2022-08-17] MEDS: BACLOFEN 10 MG TAB PO SCH (09:21)
[2022-08-17] MEDS: carvediloL 12.5 MG TAB PO SCH ×2 (09:22→20:56)
[2022-08-17] MEDS: DOXYCYCLINE HYCLATE 100 MG CAP PO SCH (09:23)
[2022-08-17] MEDS: FOLIC ACID 1 MG TAB PO SCH (09:24)
[2022-08-17] MEDS: LANTUS PER UNIT CHARGE SQ SCH (09:24)
[2022-08-17] MEDS: MAGNESIUM OXIDE 400 MG TAB PO SCH (09:25)
[2022-08-17] MEDS: PANTOprazole 40 MG in SYRINGE 0 ML IV SCH (09:26)
[2022-08-17 09:31] LABS: Basophils # (auto) 0.04 K/uL (0-0.2); Basophils % (auto) 0.7 %; Eosinophils % (auto) 1.7 %; Hematocrit (blood only) 35.6 % (42.0-52.0); Hemoglobin 10.8 g/dl (14.0-18.0); Immature Granulocytes # (auto) 0.02 K/uL (0.01-0.20); Immature Granulocytes % (auto) 0.3 %; Mean Corpuscular Hemoglobin 25.2 pg (25.0-34.0); Mean Corpuscular Hgb Conc 30.3 g/dL (32.0-36.0); Mean Platelet Volume 9.9 fL (9.4-12.4); Neutrophils # (auto) 4.34 K/uL (1.40-6.50); Neutrophils % (auto) 72.3 %; Platelet Count 338 K/uL (130-400); RDW Coefficient of Variation 20.4 % (11.5-14.5); RDW Standard Deviation 61.8 fL (36.4-46.3); Red Blood Count 4.29 M/uL (4.70-6.10)
[2022-08-17 10:03] LABS: Anisocytosis Present; Echinocytes 1+
[2022-08-17] MEDS ORDERED: ENOXAPARIN 100 MG/1ML SYR SQ SCH (11:00)
[2022-08-17] MEDS ORDERED: ENOXAPARIN 80 MG/0.8 ML SYR SQ SCH (12:00)
[2022-08-17] MEDS: ENOXAPARIN 100 MG/1ML SYR SQ SCH ×2 (12:32→23:34)
--- NOTE | 2022-08-17 13:51 | Hospitalist Progress Note ---
Date of Service August 17, 2022 Assessment & Plan (1) Anemia: Plan: (1)Acute blood loss anemia, likely secondary to right thigh hematoma, spontaneous, in the setting of Lovenox and Plavix use History of Recurrent DVT, and CVA Plan: Patient presenting from home with reported increased lethargy, taking Lovenox 120mg BID and Plavix As an outpatient, patient has been noted to have a downtrending hemoglobin (11.5 --> 8.0 --> 9.1 --> 8.9 on 07/27). Patient was started on iron replacement. 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 Colonoscopy was considered however patient was felt to not likely be able to tolerate the prep. In the ED, Hgb 5.9. Patient hemodynamically stable. CT abdomen/pelvis/angio: There is a large hematoma involving the medial aspect of the upper thigh measuring approximately 5.5 x 6.5 cm in axial dimension. Questionable heterogeneous density surrounding the right femur are concerning for second hematoma and measuring 5.7 x 5.5 cm in axial dimension. There is no evidence of active bleed. [facility] consulted: no surgery recommended He was transfused 4 unit of packed RBC; hemoglobin improved to [address] scan of the head was done on 08/13; stable size of hematoma. Masonry Installer consulted: Dr. Richey- recommend to gradually start Lovenox- 40mg daily, then BID, then 80mg BID. Patient tolerated 2 days of Lovenox 80 mg twice daily; anti-Xa level was obtained on August 16; level was found to be 0.45. Discussion with hematology done again. Recommended to increase Lovenox to 100 mg twice daily and repeat anti-Xa level again. On the request of patient's regarding work-up for anemia; GI was informed and patient was planned for colonoscopy as inpatient on 08/19. However, further discussion with the ; she did not want patient to undergo colonoscopy preparation as she feels he is not at his baseline functional status and wants to do as outpatient. (2) Elevated troponin: (3) CAD (coronary artery disease): Plan: Likely due to demand ischemia in the setting of profound anemia Continue beta-josé and statin. Plavix was also restarted. Troponin flat, 1100, 1300, 1000 EKG: No signs of acute ischemia or infarct Echo 45 to 45%, mild apical wall hypokinesis Cardiology service consulted-no further further interventions at this point Possible UTI Urine culture x 2: [place] discussed with Erica GIBBS given Dapto x 2 days and completed oral doxycycline course. Hagan cath in place. (4) Type 2 diabetes mellitus: Plan: Hgb A1c 5.2 06/2022 Lantus 8 units in AM NovoLog per protocol Monitor BSG's closely (5) History of CVA (cerebrovascular accident): Plan: History of recurrent CVA despite DAPT and anticoagulation therapy Chronic right hemiplegia/left arm paralysis/mostly nonverbal/expressive aphasia management of Lovenox + PLavix per above. (6) H/O deep venous thrombosis: Plan: History of breakthrough DVT while on warfarin and Eliquis therapy, now on therapeutic dose Lovenox per above (7) HTN (hypertension): Plan: restart Lisinopril (8) DVT prophylaxis: Plan: on Lovenox BID per above Disposition lives with at home. PT/OT ordered plan of care discussed with patient's daily in detail and at length all questions answered Admission and Anticipated Discharge Date Admission Date: August 09, 2022 Subjective Patient seen and examined at bedside. His was also at the bedside. Patient was lethargic but awake able to voice. No complaint of pain or discomfort. Hemodynamically stable. Review of Systems 2 Review of Systems: All systems reviewed & are unremarkable except as noted in Subjective Physical Exam Physical Exam: General- not in distress, breathing with no effort or accessory muscle use Eyes- anicteric Neck- no JVD Lungs- clear breath sounds bilaterally, no rales/wheezes Heart- normal rate, regular rhythm; no murmurs Abdomen- normal bowel sounds, nondistended, soft, nontender Sacrum- Stage 2 pressure ulcer, no signs of infection, no discharge Extremities- LUE: moderate edema, no erythema/warmth/tenderness RLE: thigh- mild edema, fem cath in place- no signs of infection no pretibial edema, no calf tenderness Neuro- no new gross focal neurologic deficits Skin- warm & dry Results & Data Results & Data ([facility]) Vital Signs (Past 12 Hours) Vital Signs Temp Pulse Pulse Resp BP Pulse Ox O2 Del Method 08/17/22 13:06 Room Air 08/17/22 11:45 36.8 C 76 18 125/74 95 Room Air 08/17/22 09:20 36.8 C 76 16 110/66 95 Room Air 08/17/22 08:17 78 08/17/22 07:37 36.7 C 80 20 150/79 H 95 Room Air 08/17/22 03:00 36.6 C 78 20 129/75 94 Room Air (1) Anemia Anemia type: unspecified type Qualified Code(s): D64.9 - Anemia, unspecified
[2022-08-17] MEDS: TAMSULOSIN HCL 0.4 MG CAP PO SCH (20:56)
[2022-08-17] MEDS: PANTOprazole 40 MG TAB PO SCH (21:54)
[2022-08-17] MEDS: ACETAMINOPHEN 325 MG TAB PO PRN (22:04)
[2022-08-18 06:57] LABS: Basophils # (auto) 0.03 K/uL (0-0.2); Basophils % (auto) 0.6 %; Eosinophils # (auto) 0.13 K/uL (0-0.50); Eosinophils % (auto) 2.4 %; Hematocrit (blood only) 34.8 % (42.0-52.0); Hemoglobin 10.4 g/dl (14.0-18.0); Immature Granulocytes # (auto) 0.02 K/uL (0.01-0.20); Immature Granulocytes % (auto) 0.4 %; Lymphocytes # (auto) 1.45 K/uL (1.2-3.4); Lymphocytes % (auto) 27.1 %; Mean Corpuscular Hemoglobin 25.2 pg (25.0-34.0); Mean Corpuscular Hgb Conc 29.9 g/dL (32.0-36.0); Mean Corpuscular Volume 84.3 fL (80.0-100.0); Mean Platelet Volume 9.8 fL (9.4-12.4); Monocytes # (auto) 0.29 K/uL (0.11-0.59); Monocytes % (auto) 5.4 %; Neutrophils # (auto) 3.44 K/uL (1.40-6.50); Neutrophils % (auto) 64.1 %; Platelet Count 329 K/uL (130-400); RDW Coefficient of Variation 20.5 % (11.5-14.5); RDW Standard Deviation 62.4 fL (36.4-46.3); Red Blood Count 4.13 M/uL (4.70-6.10); White Blood Count 5.36 K/ul (4.8-10.8)
[2022-08-18 07:21] LABS: Anisocytosis Present; Echinocytes 1+; Polychromasia 1+; Spherocytes 1+
[2022-08-18] MEDS: FOLIC ACID 1 MG TAB PO SCH (08:05)
[2022-08-18] MEDS: MAGNESIUM OXIDE 400 MG TAB PO SCH (08:05)
[2022-08-18] MEDS: CLOPIDOGREL BISULFATE 75 MG TAB PO SCH (08:05)
[2022-08-18] MEDS: PANTOprazole 40 MG TAB PO SCH ×2 (08:05→20:56)
[2022-08-18] MEDS: BACLOFEN 10 MG TAB PO SCH (08:05)
[2022-08-18] MEDS: carvediloL 12.5 MG TAB PO SCH ×2 (08:07→20:55)
[2022-08-18] MEDS: INSULIN ASPART PER UNIT CHARGE SC SCH ×4 (08:13→20:59)
[2022-08-18] MEDS: LANTUS PER UNIT CHARGE SQ SCH (08:14)
--- NOTE | 2022-08-18 11:44 | Hospitalist Progress Note ---
Date of Service August 18, 2022 Assessment & Plan (1) Anemia: Plan: (1)Acute blood loss anemia, likely secondary to right thigh hematoma, spontaneous, in the setting of Lovenox and Plavix use History of Recurrent DVT, and CVA Plan: Patient presenting from home with reported increased lethargy, taking Lovenox 120mg BID and Plavix As an outpatient, patient has been noted to have a downtrending hemoglobin (11.5 --> 8.0 --> 9.1 --> 8.9 on 07/27). Patient was started on iron replacement. 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 Colonoscopy was considered however patient was felt to not likely be able to tolerate the prep. In the ED, Hgb 5.9. Patient hemodynamically stable. CT abdomen/pelvis/angio: There is a large hematoma involving the medial aspect of the upper thigh measuring approximately 5.5 x 6.5 cm in axial dimension. Questionable heterogeneous density surrounding the right femur are concerning for second hematoma and measuring 5.7 x 5.5 cm in axial dimension. There is no evidence of active bleed. [facility] consulted: no surgery recommended. He was transfused 4 unit of packed RBC; hemoglobin improved to [address] scan of the thigh was done on 08/13; stable size of hematoma. [employer] Worker consulted: Dr. Richey- recommend to gradually start Lovenox- 40mg daily, then BID, then 80mg BID. Patient tolerated 2 days of Lovenox 80 mg twice daily; anti-Xa level was obtained on August 16; level was found to be 0.45. Discussion with hematology done again. Recommended to increase Lovenox to 100 mg twice daily and repeat anti-Xa level again. On the request of patient's regarding work-up for anemia; GI was informed and patient was planned for colonoscopy as inpatient on 08/19. However, further discussion with the ; she did not want patient to undergo colonoscopy preparation as she feels he is not at his baseline functional status and wants to do as outpatient. (2) Elevated troponin: (3) CAD (coronary artery disease): Plan: Likely due to demand ischemia in the setting of profound anemia Continue beta-josé and statin. Plavix was also restarted. Troponin flat, 1100, 1300, 1000 EKG: No signs of acute ischemia or infarct Echo 45 to 45%, mild apical wall hypokinesis Cardiology service consulted-no further further interventions at this point Possible UTI Urine culture x 2: Baciliog [place] discussed with Erica GIBBS given Dapto x 2 days and completed oral doxycycline course. Hagan cath in place. (4) Type 2 diabetes mellitus: Plan: Hgb A1c 5.2 06/2022 Lantus 8 units in AM NovoLog per protocol Monitor BSG's closely (5) History of CVA (cerebrovascular accident): Plan: History of recurrent CVA despite DAPT and anticoagulation therapy Chronic right hemiplegia/left arm paralysis/mostly nonverbal/expressive aphasia management of Lovenox + PLavix per above. (6) H/O deep venous thrombosis: Plan: History of breakthrough DVT while on warfarin and Eliquis therapy, now on therapeutic dose Lovenox per above (7) HTN (hypertension): Plan: restart Lisinopril (8) DVT prophylaxis: Plan: on Lovenox BID per above Disposition lives with at home. PT/OT ordered plan of care discussed with patient's daily in detail and at length all questions answered Admission and Anticipated Discharge Date Admission Date: August 09, 2022 Subjective Patient seen and examined at bedside. He is comfortably sitting up on the bed; not in any distress. He has coarse cough. He is saturating well on room air. Review of Systems Review of Systems: All systems reviewed & are unremarkable except as noted in Subjective Physical Exam Physical Exam: General- not in distress, breathing with no effort or accessory muscle use Eyes- anicteric Neck- no JVD Lungs- clear breath sounds bilaterally, no rales/wheezes. Occasional crackles heard Heart- normal rate, regular rhythm; no murmurs Abdomen- normal bowel sounds, nondistended, soft, nontender Sacrum- Stage 2 pressure ulcer, no signs of infection, no discharge Extremities- LUE: moderate edema, no erythema/warmth/tenderness RLE: thigh- mild edema, fem cath in place- no signs of infection no pretibial edema, no calf tenderness Neuro- no new gross focal neurologic deficits Skin- warm & dry Results & Data Results & Data Vital Signs (Past 12 Hours) Vital Signs Temp Pulse Pulse Resp BP Pulse Ox O2 Del Method 08/18/22 11:29 36.7 C 77 20 136/73 96 Room Air 08/18/22 09:00 74 08/18/22 07:18 36.5 C 72 20 145/77 H 96 Room Air 08/18/22 02:45 36.5 C 69 20 132/63 95 Room Air Laboratory Results Laboratory Results WBC 5.36 K/ul (4.8-10.8) 08/18/22 06:09 RBC 4.13 M/uL (4.70-6.10) L 08/18/22 06:09 Hgb 10.4 g/dl (14.0-18.0) L 08/18/22 06:09 Hct 34.8 % (42.0-52.0) L 08/18/22 06:09 MCV 84.3 fL (80.0-100.0) 08/18/22 06:09 MCH 25.2 pg (25.0-34.0) 08/18/22 06:09 MCHC 29.9 g/dL (32.0-36.0) L 08/18/22 06:09 RDW Std Deviation 62.4 fL (36.4-46.3) H 08/18/22 06:09 RDW Coeff of Caroline 20.5 % (11.5-14.5) H 08/18/22 06:09 Plt Count 329 K/uL (130-400) 08/18/22 06:09 MPV 9.8 fL (9.4-12.4) 08/18/22 06:09 Immature Gran % (Auto) 0.4 % 08/18/22 06:09 Neut % (Auto) 64.1 % 08/18/22 06:09 Lymph % (Auto) 27.1 % 08/18/22 06:09 [place] % (Auto) 5.4 % 08/18/22 06:09 Eos % (Auto) 2.4 % 08/18/22 06:09 Baso % (Auto) 0.6 % 08/18/22 06:09 Neut # (Auto) 3.44 K/uL (1.40-6.50) 08/18/22 06:09 Lymph # (Auto) 1.45 K/uL (1.2-3.4) 08/18/22 06:09 [place] # (Auto) 0.29 K/uL (0.11-0.59) 08/18/22 06:09 Eos # (Auto) 0.13 K/uL (0-0.50) 08/18/22 06:09 Baso # (Auto) 0.03 K/uL (0-0.2) 08/18/22 06:09 Immature Gran # (Auto) 0.02 K/uL (0.01-0.20) 08/18/22 06:09 Absolute Nucleated RBC Cancelled 08/17/22 07:00 Nucleated RBC % (auto) Cancelled 08/17/22 07:00 Neutrophils % (Manual) Cancelled 08/17/22 07:00 Band Neutrophils % Cancelled 08/17/22 07:00 Lymphocytes % (Manual) Cancelled 08/17/22 07:00 Prolymphocyte % Cancelled 08/17/22 07:00 Reactive Lymphs % (Man) Cancelled 08/17/22 07:00 Monocytes % (Manual) Cancelled 08/17/22 07:00 Eosinophils % (Manual) Cancelled 08/17/22 07:00 Basophils % (Manual) Cancelled 08/17/22 07:00 Metamyelocytes % (Man) Cancelled 08/17/22 07:00 Myelocytes % (Man) Cancelled 08/17/22 07:00 Promyelocytes % (Man) Cancelled 08/17/22 07:00 Blast Cells % (Manual) Cancelled 08/17/22 07:00 Plasma Cell % (Manual) Cancelled 08/17/22 07:00 Other Cells % Cancelled 08/17/22 07:00 Nucleated RBC % Cancelled 08/17/22 07:00 Neutrophils # (Manual) Cancelled 08/17/22 07:00 Band Neutrophils # Cancelled 08/17/22 07:00 Total Absolute Neuts Cancelled 08/17/22 07:00 Lymphocytes # (Manual) Cancelled 08/17/22 07:00 Prolymphocyte # Cancelled 08/17/22 07:00 Reactive Lymphs # Cancelled 08/17/22 07:00 Total Abs Lymphocytes Cancelled 08/17/22 07:00 Monocytes # (Manual) Cancelled 08/17/22 07:00 Eosinophils # (Manual) Cancelled 08/17/22 07:00 Basophils # (Manual) Cancelled 08/17/22 07:00 Metamyelocytes # (Man) Cancelled 08/17/22 07:00 Myelocytes # (Manual) Cancelled 08/17/22 07:00 Promyelocytes # (Man) Cancelled 08/17/22 07:00 Blast Cells # (Man) Cancelled 08/17/22 07:00 Plasma Cell # (Manual) Cancelled 08/17/22 07:00 Other Cells # Cancelled 08/17/22 07:00 Nucleated RBCs # (Man) Cancelled 08/17/22 07:00 Hypersegmented Neuts Cancelled 08/17/22 07:00 Hyposegmented Neuts Cancelled 08/17/22 07:00 Hypogranular Neuts Cancelled 08/17/22 07:00 Large Granular Lymphs Cancelled 08/17/22 07:00 # Lrg Granular Lymphs Cancelled 08/17/22 07:00 Hairy Cells Cancelled 08/17/22 07:00 Smudge Cells Cancelled 08/17/22 07:00 Toxic Granulation Cancelled 08/17/22 07:00 Toxic Vacuolation Cancelled 08/17/22 07:00 Dohle Bodies Cancelled 08/17/22 07:00 Esau Rods Cancelled 08/17/22 07:00 Platelet Estimate Cancelled 08/17/22 07:00 Hypogranular Platelets Cancelled 08/17/22 07:00 Giant Platelets Cancelled 08/17/22 07:00 Platelet Satelliting Cancelled 08/17/22 07:00 RBC Morphology Cancelled 08/17/22 07:00 Polychromasia 1+ 08/18/22 06:09 Hypochromasia Cancelled 08/17/22 07:00 Poikilocytosis Cancelled 08/17/22 07:00 Basophilic Stippling Cancelled 08/17/22 07:00 Anisocytosis Present 08/18/22 06:09 Microcytosis Cancelled 08/17/22 07:00 Macrocytosis Cancelled 08/17/22 07:00 Spherocytes 1+ 08/18/22 06:09 Pappenheimer Bodies Cancelled 08/17/22 07:00 Sickle Cells Cancelled 08/17/22 07:00 Target Cells Cancelled 08/17/22 07:00 Tear Drop Cells Cancelled 08/17/22 07:00 Ovalocytes Cancelled 08/17/22 07:00 Stomatocytes Cancelled 08/17/22 07:00 [place] Bodies Cancelled 08/17/22 07:00 Echinocytes 1+ 08/18/22 06:09 Acanthocytes (Spur) Cancelled 08/17/22 07:00 Rouleaux Cancelled 08/17/22 07:00 RBC Agglutinates Cancelled 08/17/22 07:00 Schistocytes Cancelled 08/17/22 07:00 Sezary Cell Cancelled 08/17/22 07:00 PT 13.0 Seconds (9.0-12.0) H 08/09/22 15:05 INR 1.2 (0.9-1.1) H 08/09/22 15:05 APTT 33.1 Seconds (21.0-31.0) H 08/09/22 15:05 PTT Ratio 1.2 08/09/22 15:05 Heparin Anti-Xa, LM Wt 0.45 IU/ML (< 0.10) 08/16/22 16:05 Sodium 143 mmol/L (136-145) 08/16/22 06:00 Potassium 3.6 mmol/L (3.5-5.1) 08/16/22 06:00 Chloride 114 mmol/L (98-107) H 08/16/22 06:00 Carbon Dioxide 25 mmol/L (21-32) 08/16/22 06:00 Anion Gap 4 (3-11) 08/16/22 06:00 BUN 14 mg/dl (6-23) 08/16/22 06:00 Creatinine 0.38 mg/dl (0.6-1.4) L 08/16/22 06:00 Est Cr Clr Drug Dosing 201.7 ml/min 08/16/22 06:00 Est GFR ( Amer) 148.6 ml/min 08/16/22 06:00 Est GFR (Non-Af Amer) 128.2 ml/min 08/16/22 06:00 BUN/Creatinine Ratio 36.8 (10-20) H 08/16/22 06:00 Glucose 166 mg/dl (70-99(Fasting)) H 08/16/22 06:00 POC Glucose 177 mg/dl (70-99) H 08/18/22 11:28 Lactate 1.5 mmol/L (0.4-2.0) 08/09/22 15:05 Calcium 7.6 mg/dl (8.5-10.1) L 08/16/22 06:00 Phosphorus 3.2 mg/dl (2.5-4.9) 08/10/22 07:31 Magnesium 1.5 mg/dl (1.7-2.4) L 08/15/22 06:16 Iron 34 mcg/dl (35-175) L 08/13/22 06:01 TIBC 184 mcg/dl (250-450) L 08/13/22 06:01 Unsaturated IBC 150 mcg/dl (155-355) L 08/13/22 06:01 Transferrin 161 mg/dl (200-360) L 08/10/22 12:50 Transferrin % Sat 18 % (20-50) L 08/13/22 06:01 Ferritin 256.6 ng/ml (8-388) 08/10/22 12:50 Total Bilirubin 0.9 mg/dl (0.2-1.0) 08/09/22 15:05 Direct Bilirubin 0.1 mg/dl (0-0.2) 08/09/22 15:05 AST 7 U/L (13-39) L 08/09/22 15:05 ALT 14 U/L (7-52) 08/09/22 15:05 Alkaline Phosphatase 109 U/L (34-104) H 08/09/22 15:05 Ammonia 25.0 umol/L (18-72) 08/09/22 15:05 Total Creatine Kinase 175 U/L (30-223) 08/09/22 15:05 Troponin I High Sens 1008.3 pg/ml (0-20) H* D 08/10/22 07:31 Total Protein 5.5 gm/dl (6.0-8.3) L 08/09/22 15:05 Albumin 2.6 gm/dl (3.4-5.0) L 08/09/22 15:05 Vitamin B12 436 pg/ml (180-914) 08/10/22 12:50 Procalcitonin 0.05 ng/ml (0-0.5) 08/09/22 15:05 TSH 2.154 uIu/ml (0.300-4.500) 08/13/22 18:24 Urine Color [place] 08/11/22 00:41 Urine Appearance Clear (Clear) 08/11/22 00:41 Urine pH 5.5 (4.5-7.5) 08/11/22 00:41 Ur Specific [place] 1.040 (1.000-1.030) H 08/11/22 00:41 Urine Protein Trace (Negative) H 08/11/22 00:41 Urine Glucose (UA) Negative (Negative) 08/11/22 00:41 Urine Ketones Trace (Negative) H 08/11/22 00:41 Urine Blood Negative (Negative) 08/11/22 00:41 Urine Nitrite Positive (Negative) A 08/11/22 00:41 Urine Bilirubin Negative (Negative) 08/11/22 00:41 Urine Urobilinogen Negative (Negative) 08/11/22 00:41 Ur Leukocyte Esterase 2+ (Negative) H 08/11/22 00:41 Urine WBC (Auto) >30 /hpf (0-5) H 08/11/22 00:41 Urine RBC (Auto) 0-4 /hpf (0-4) 08/11/22 00:41 U Hyaline Cast (Auto) 1-5 /lpf (0-5) 08/11/22 00:41 U Epithel Cells (Auto) 0-5 /lpf (0-5) 08/11/22 00:41 Urine Bacteria (Auto) Negative (Negative) 08/11/22 00:41 Ur Renal Epithelial Cell Not Reportable 08/09/22 15:50 Urine Yeast Not Reportable 08/11/22 00:41 Stool Occult Bld Scrn Negative (Negative) 08/14/22 11:16 SARS-CoV-2 (PCR) NEGATIVE (Negative) 08/09/22 16:00 Influenza Type A (PCR) Negative (Neg) 08/09/22 16:00 Influenza Type B (PCR) Negative (Neg) 08/09/22 16:00 RSV (RT-PCR) Negative (Neg) 08/09/22 16:00 Blood Parasites ID Cancelled 08/17/22 07:00 Blood Type A Positive 08/09/22 15:09 Antibody Screen NEGATIVE 08/09/22 15:09 Crossmatch See Detail 08/09/22 15:[address] 08/09/22 12:34 CT SCAN OF THE BRAIN WITHOUT IV CONTRAST CLINICAL HISTORY: Lethargy. COMPARISON STUDY: CT of the brain dated 08/20/2021. TECHNIQUE: Unenhanced axial CT scan of the brain is performed from the vertex to the skull base. A dose lowering technique was utilized adhering to the principles of ALARA. CT DOSE: 614.27 mGy.cm FINDINGS: Brain parenchyma: There is age-advanced involutional change noting advanced confluent subcortical and periventricular microangiopathic disease. There is no hemorrhage, mass effect, or evidence of acute territorial ischemia by CT criteria. A small chronic infarct is noted in the high right parietal lobe. Rsoe-white matter differentiation is preserved. No extra-axial fluid collection is seen. Ventricles, sulci, cisterns: Prominent secondary to involutional change. Intracranial vasculature: There is atherosclerotic calcification of the cavernous carotid and vertebral arteries. Calvarium: Unremarkable. Sinuses and mastoids: The visualized paranasal sinuses are clear. The mastoid air cells are well pneumatized. Orbits: The bony orbits are grossly intact. IMPRESSION: There is no hemorrhage, mass effect, or evidence of acute territorial ischemia by CT criteria. ACT 112: Negative or not required by law. Electronically signed by: Donny Fernando M.D. 08/09/2022 3:38 PM Abdomen/Pelvis CT 08/10/22 00:22 CR Exam(s): CT ABDOMEN + PELVIS Without Contrast EXAM: CT Abdomen and Pelvis Without Intravenous Contrast CLINICAL HISTORY: Reason for exam: anemia. any bleeding?. TECHNIQUE: Axial computed tomography images of the abdomen and pelvis without intravenous contrast. CTDI is 16.7 mGy and DLP is 945.35 mGy-cm. Automated exposure control was utilized for the study. A dose lowering technique was utilized adhering to the principles of ALARA. COMPARISON: CT Abdomen Pelvis dated 03/18/2020 FINDINGS: Artifacts: Artifact in the upper abdomen from patient's arms. Lung bases: See below. Pleural space: Small bilateral pleural effusions greater on the left. Mild bibasilar atelectasis. Heart: Marked coronary artery calcifications. ABDOMEN: Liver: Unremarkable. Gallbladder and bile ducts: Unremarkable. No calcified stones. No ductal dilation. Pancreas: Unremarkable. No ductal dilation. Spleen: Unremarkable. No splenomegaly. Adrenals: Nodular adrenal glands, similar to the prior. Kidneys and ureters: Left renal low-density lesion better seen on the prior. No obstructing stones. No hydronephrosis. Stomach and bowel: Large amount of stool within distended rectum. No mucosal thickening. No bowel obstruction. PELVIS: Appendix: No findings to suggest acute appendicitis. Bladder: Bladder wall thickening of partially distended bladder. No stones. Reproductive: Unremarkable as visualized. ABDOMEN and PELVIS: Intraperitoneal space: See above. Bones/joints: Median sternotomy wires. Minimal sclerosis of the left inferior pubic ramus, new since the prior. Soft tissues: Enlarged right abductor musculature which appears hyperdense. Partially visualized on the inferior most images. Approximately 5 cm in transverse dimension. Dystrophic soft tissue calcifications/heterotopic ossification bilaterally in the musculature between the inferior pubic rami and proximal femurs. Chronic appearance although new since the prior study. Partially visualized. Anasarca. Soft tissue calcifications noted in the left forearm soft tissues, partially visualized. Vasculature: Marked diffuse atherosclerotic calcifications. Lymph nodes: Unremarkable. No enlarged lymph nodes. Tubes, lines and devices: Right this catheter with the tip in the right common iliac vein. IMPRESSION: 1. Enlarged right abductor musculature which appears hyperdense. Partially visualized on the inferior most images. Likely represents hematoma, approximately 5 cm in transverse dimension. Active bleeding or underlying lesion not excluded. 2. Large amount of stool within distended rectum. 3. Bladder wall thickening of partially distended bladder. May reflect cystitis or chronic bladder obstruction. 4. Dystrophic soft tissue calcifications/heterotopic ossification bilaterally in the musculature between the inferior pubic rami and proximal femurs. Chronic appearance although new since the prior study. Partially visualized. 5. Minimal sclerosis of the left inferior pubic ramus, new since the prior. Nonspecific. Correlate for infectious/inflammatory or neoplastic process. 6. Anasarca. 7. Small bilateral pleural effusions greater on the left. Mild bibasilar atelectasis. Communications: Verify Receipt Call Doctor Above results Electronically signed by: Thiago Wheeler M.D. 08/10/22 02:28 AM Lower Extremity CTA 08/10/22 02:42 Exam(s): CTA EXTREMITY RIGHT LOWER W/WO Contrast IV Amt: 105 ml optiray 320 EXAM: CT Angiography of the Right Lower Extremity With Intravenous Contrast CLINICAL HISTORY: Reason for exam: right thigh hematoma. active bleeding?. TECHNIQUE: Axial computed tomographic angiography images of the right lower extremity with intravenous contrast. CTDI is 49.29 mGy and DLP is 1250.2 mGy-cm. Automated exposure control was utilized for the study. A dose lowering technique was utilized adhering to the principles of ALARA. MIP reconstructed images were created and reviewed. CONTRAST: Patient received 105 ml optiray 320 of IV contrast COMPARISON: None. FINDINGS: VASCULATURE: Aorta: Severe calcified atherosclerotic disease tibioperoneal trunk. There is calcified atherosclerotic disease of aorta with no aneurysm. Right iliac arteries: Mild calcified atherosclerotic disease throughout the right external iliac artery with no significant stenosis. Right femoral/popliteal arteries: Scattered calcified atherosclerotic disease throughout the right superficial femoral artery, more severe distally. Cannot exclude areas of moderate to high-grade stenosis involving the distal superficial femoral artery. Severe atherosclerotic disease of the popliteal artery with areas of moderate to high-grade stenosis. Right calf/foot arteries: Severe disease through the right anterior tibial artery with multiple areas of high-grade stenosis in a short segment occlusions. Severe disease through the posterior tibial artery with multiple areas of high-grade stenosis and short segment occlusion. Distal reconstitution at the ankle noted. Moderate disease through the peroneal artery seen as a continuous vessel to the ankle. LOWER EXTREMITY: Bones/joints: There is a right-sided femoral line in place. Soft tissues: There is a large hematoma involving the medial aspect of the upper thigh measuring approximately 5.5 x 6.5 cm in axial dimension. Questionable heterogeneous density surrounding the right femur are concerning for second hematoma and measuring 5.7 x 5.5 cm in axial dimension. There is no evidence of active bleed. Bladder: Intrapelvic structures revealed borderline thickening of urinary bladder wall, cannot exclude cystitis. IMPRESSION: 1. Hematoma involving the medial and upper aspect of the right thigh and surrounding the mid cephalad femur. No evidence of active bleed. 2. Severe atherosclerotic disease involving the right lower extremity more significant through the distal superficial femoral and popliteal artery with areas of high-grade stenosis distally. 3. Severe disease through the trifurcation vessels with single vessel runoff through the peroneal artery. Multiple areas of high-grade stenosis or occlusions with the anterior tibial artery and posterior tibial artery as described. Electronically signed by: Merline Macias MD 08/10/22 05:[address] 08/10/22 09:47 CT forearm LT wo con, CT humerus LT wo con CLINICAL HISTORY: edema, r/o hematoma TECHNIQUE: Multidetector row helical CT of the left forearm and left humerus was performed without intravenous contrast. Coronal and sagittal reformations were obtained. Automated dose lowering techniques and/or adjustment according to patient size were utilized for this examination. Comparison: None available at the time of this dictation. FINDINGS: Heterotopic ossification is seen about the elbow. The joint spaces are maintained. No joint effusion is seen. Soft tissue edema is seen about the elbow and forearm without discrete drainable fluid collection. Atherosclerosis is noted. IMPRESSION: Soft tissue edema and heterotopic ossification. This may represent cellulitis, simple edema or contusion. No discrete fluid collection is seen. ACT 112: Negative or not required by law. Electronically signed by: Bradley Reeves M.D. 08/10/2022 11:[address] 08/10/22 09:47 CT forearm LT wo con, CT humerus LT wo con CLINICAL HISTORY: edema, r/o hematoma TECHNIQUE: Multidetector row helical CT of the left forearm and left humerus was performed without intravenous contrast. Coronal and sagittal reformations were obtained. Automated dose lowering techniques and/or adjustment according to patient size were utilized for this examination. Comparison: None available at the time of this dictation. FINDINGS: Heterotopic ossification is seen about the elbow. The joint spaces are maintained. No joint effusion is seen. Soft tissue edema is seen about the elbow and forearm without discrete drainable fluid collection. Atherosclerosis is noted. IMPRESSION: Soft tissue edema and heterotopic ossification. This may represent cellulitis, simple edema or contusion. No discrete fluid collection is seen. ACT 112: Negative or not required by law. Electronically signed by: Bradley Reeves M.D. 08/10/2022 11:42 AM Chest X-Ray 08/10/22 13:38 XR chest 1V portable CLINICAL HISTORY: r/o pneumonia,edema TECHNIQUE: Single frontal radiograph of the chest was obtained. Comparison: Comparison is made to chest radiograph 08/09/2022 FINDINGS: Median sternotomy wires are unchanged. Calcified aortic knob is seen. The lungs are clear. No evidence of pleural effusion or pneumothorax. IMPRESSION: No acute abnormalities and in particular no radiographic evidence of pneumonia. ACT 112: Negative or not required by law. Electronically signed by: Bradley Reeves M.D. 08/10/2022 3:[address] 08/13/22 07:35 CT femur RT wo con HISTORY: 62 years-old Male ff up hematoma follow-up study in a patient with reported right thigh hematoma COMPARISON: CTA right lower extremity 08/10/2022 TECHNIQUE: Multiple axial CT images of the right femur were obtained without the use of IV contrast. A dose lowering technique was used consistent with the principals of S[place]AGO. FINDINGS: Decompressed urinary bladder with Hagan catheter. Prostamegaly. Moderate fecal retention of the rectum with mild nonspecific circumferential rectal wall thickening. Trace free fluid within the pelvis. Extensive vascular calcifications. Mild right inguinal lymphadenopathy with lymph nodes measuring up to 1.1 cm. Intramuscular hematomas are again noted throughout the right pelvis and thigh. Ill-defined intramuscular hemorrhage within the right adductor space measures up to approximately 8.6 x 5.5 cm, stable. Large area of hemorrhage within the proximal right upper thigh, located within the vastus intermedius measuring up to 6.8 x 6.4 x 17 cm has not significantly changed. Smaller hematoma within the vastus medialis is also similar in size. Moderate diffuse subcutaneous and deep tissue edema of the bladder and right upper extremity. 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 Demineralized appearance of the bones. There is no acute fracture, dislocation, osseous erosion or suspicious bone lesion identified. Moderate osteoarthritis of the hip and medial compartment right knee with mild patellofemoral and lateral compartment osteoarthritis. IMPRESSION: 1. Large intramuscular hematomas within the right adductor space and right quadriceps appear generally stable compared to the study from 08/10/2022. 2. No acute fracture or dislocation identified. 3. 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 4. Diffuse subcutaneous and deep tissue edema redemonstrated. ACT 112: Negative or not required by law. The above report was generated using voice recognition software. It may contain grammatical, syntax or spelling errors. Electronically signed by: Abdon Gr M.D. 08/13/2022 9:27 AM (1) Anemia Anemia type: unspecified type Qualified Code(s): D64.9 - Anemia, unspecified
[2022-08-18] MEDS: ALBUT/IPRATROP 3MG/0.5MG NEB 3 ML VIAL NEB SCH ×2 (12:14→19:43)
[2022-08-18] MEDS: ENOXAPARIN 100 MG/1ML SYR SQ SCH ×2 (12:34→23:55)
--- NOTE | 2022-08-18 14:29 | Ultrasound Report ---
ULTRASOUND LEFT UPPER EXTREMITY VENOUS CLINICAL HISTORY: Left arm pain and swelling. COMPARISON STUDY: Left upper extremity venous ultrasound dated 06/03/2022. CT of the left humerus ramon ed 08/10/2022. TECHNIQUE: Real-time, grayscale, and color Doppler sonography of the deep veins of the left upper ext remity is performed. Compression and augmentation were utilized. FINDINGS: There is no sonographic evidence of deep venous thrombosis identified in the left upper ext remity. The left internal jugular, axillary, and brachial veins are patent and normally compressible. Normal venous waveforms and augmentation are seen within the left subclavian vein. The cephalic and basilic veins are clear. The visualized radial and ulnar veins are patent. There is a large complex n onvascular fluid collection in the left axilla. This measures approximate 7 x 4 x 7 cm. Soft tissue e soraya seen in the left upper extremity. IMPRESSION: 1. There is no sonographic evidence of deep venous thrombosis identified in the left upper extremity. 2. There is a large complex left axillary fluid collection, which is typical for a hematoma. Clinical correlation will be required. ACT 112: Negative or not required by law. Electronically signed by: Donny Fernando M.D. 08/18/2022 2:27 PM
[2022-08-18] MEDS: SODIUM CHLOR 7% 4 ML NEB NEB SCH (19:43)
[2022-08-18] MEDS: TAMSULOSIN HCL 0.4 MG CAP PO SCH (20:55)
[2022-08-18] MEDS: ACETAMINOPHEN 325 MG TAB PO PRN (21:02)
[2022-08-19 04:38] LABS: Basophils # (auto) 0.04 K/uL (0-0.2); Basophils % (auto) 0.8 %; Eosinophils % (auto) 1.9 %; Hematocrit (blood only) 35.1 % (42.0-52.0); Hemoglobin 10.6 g/dl (14.0-18.0); Immature Granulocytes # (auto) 0.02 K/uL (0.01-0.20); Immature Granulocytes % (auto) 0.4 %; Lymphocytes # (auto) 1.41 K/uL (1.2-3.4); Lymphocytes % (auto) 27.4 %; Mean Corpuscular Hemoglobin 25.5 pg (25.0-34.0); Mean Corpuscular Hgb Conc 30.2 g/dL (32.0-36.0); Mean Corpuscular Volume 84.4 fL (80.0-100.0); Mean Platelet Volume 9.8 fL (9.4-12.4); Monocytes # (auto) 0.27 K/uL (0.11-0.59); Monocytes % (auto) 5.2 %; Neutrophils # (auto) 3.31 K/uL (1.40-6.50); Neutrophils % (auto) 64.3 %; Platelet Count 338 K/uL (130-400); RDW Coefficient of Variation 20.8 % (11.5-14.5); RDW Standard Deviation 63.2 fL (36.4-46.3); Red Blood Count 4.16 M/uL (4.70-6.10); White Blood Count 5.15 K/ul (4.8-10.8)
[2022-08-19 05:25] LABS: Anisocytosis Present; Echinocytes 1+
[2022-08-19] MEDS: SODIUM CHLOR 7% 4 ML NEB NEB SCH ×2 (07:13→19:29)
[2022-08-19] MEDS: ALBUT/IPRATROP 3MG/0.5MG NEB 3 ML VIAL NEB SCH ×2 (07:13→19:29)
[2022-08-19] MEDS: BACLOFEN 10 MG TAB PO SCH (08:12)
[2022-08-19] MEDS: carvediloL 12.5 MG TAB PO SCH ×2 (08:12→20:56)
[2022-08-19] MEDS: PANTOprazole 40 MG TAB PO SCH ×2 (08:12→20:55)
[2022-08-19] MEDS: FOLIC ACID 1 MG TAB PO SCH (08:12)
[2022-08-19] MEDS: MAGNESIUM OXIDE 400 MG TAB PO SCH (08:13)
[2022-08-19] MEDS: CLOPIDOGREL BISULFATE 75 MG TAB PO SCH (08:13)
[2022-08-19] MEDS: LANTUS PER UNIT CHARGE SQ SCH (08:52)
[2022-08-19] MEDS: INSULIN ASPART PER UNIT CHARGE SC SCH ×4 (08:52→21:27)
--- NOTE | 2022-08-19 12:18 | Hospitalist Progress Note ---
Date of Service August 19, 2022 Assessment & Plan (1) Anemia: Plan: (1)Acute blood loss anemia, likely secondary to right thigh hematoma and left arm hematoma spontaneous, in the setting of Lovenox and Plavix use History of Recurrent DVT, and CVA Plan: Patient presenting from home with reported increased lethargy, taking Lovenox 120mg BID and Plavix As an outpatient, patient has been noted to have a downtrending hemoglobin (11.5 --> 8.0 --> 9.1 --> 8.9 on 07/27). Patient was started on iron replacement. 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 Colonoscopy was considered however patient was felt to not likely be able to tolerate the prep. In the ED, Hgb 5.9. Patient hemodynamically stable. CT abdomen/pelvis/angio: There is a large hematoma involving the medial aspect of the upper thigh measuring approximately 5.5 x 6.5 cm in axial dimension. Questionable heterogeneous density surrounding the right femur are concerning for second hematoma and measuring 5.7 x 5.5 cm in axial dimension. There is no evidence of active bleed. [facility] consulted: no surgery recommended. He was transfused 4 unit of packed RBC; hemoglobin improved to [address] scan of the thigh was done on 08/13; stable size of hematoma. Venous duplex of left arm done on 08/18 shows large complex left axillary fluid collection typical for hematoma. Medical Claims Examiner consulted: Dr. Richey- recommend to gradually start Lovenox- 40mg daily, then BID, then 80mg BID. Patient tolerated 2 days of Lovenox 80 mg twice daily; anti-Xa level was obtained on August 16; level was found to be 0.45. Discussion with hematology done again. Recommended to increase Lovenox to 100 mg twice daily and repeat anti-Xa level again. Repeat anti-Xa level was 0.6 which is within therapeutic range. Discussed with hematology again. Recommended to continue same doses. On the request of patient's regarding work-up for anemia; GI was informed and patient was planned for colonoscopy as inpatient on 08/19. However, further discussion with the ; she did not want patient to undergo colonoscopy preparation as she feels he is not at his baseline functional status and wants to do as outpatient. (2) sacral decubitus ulcer, stage II Patient has sacral decubitus ulcer with dark eschar Wound care consulted. General surgery consulted for possible debridement. (3) Elevated troponin: (4) CAD (coronary artery disease): Plan: Likely due to demand ischemia in the setting of profound anemia Continue beta-josé and statin. Plavix was also restarted. Troponin flat, 1100, 1300, 1000 EKG: No signs of acute ischemia or infarct Echo 45 to 45%, mild apical wall hypokinesis Cardiology service consulted-no further further interventions at this point Possible UTI Urine culture x 2: Coag Neg Peggy discussed with Erica GIBBS given Dapto x 2 days and completed oral doxycycline course. Hagan cath in place in setting of sacral decubital ulcer. (5) Type 2 diabetes mellitus: Plan: Hgb A1c 5.2 06/2022 Lantus 8 units in AM NovoLog per protocol Monitor BSG's closely (6) History of CVA (cerebrovascular accident): Plan: History of recurrent CVA despite DAPT and anticoagulation therapy Chronic right hemiplegia/left arm paralysis/mostly nonverbal/expressive aphasia management of Lovenox + PLavix per above. Also on a statin. (7) H/O deep venous thrombosis: Plan: History of breakthrough DVT while on warfarin and Eliquis therapy, now on therapeutic dose Lovenox per above (8) HTN (hypertension): Plan: Currently on Coreg. Lisinopril presently on hold. (9) DVT prophylaxis: Plan: on Lovenox BID per above Disposition lives with at home. PT/OT ordered. Plan to discharge to rehab. plan of care discussed with patient's daily in detail and at length all questions answered Admission and Anticipated Discharge Date Admission Date: August 09, 2022 Subjective Patient seen and examined at bedside. He is sleepy; awakened by verbal stimuli. No fever overnight. Hemodynamically stable. Review of Systems Review of Systems: All systems reviewed & are unremarkable except as noted in Subjective Physical Exam Physical Exam: General- not in distress, breathing with no effort or accessory muscle use Eyes- anicteric Neck- no JVD Lungs- clear breath sounds bilaterally, no rales/wheezes. Occasional crackles heard Heart- normal rate, regular rhythm; no murmurs Abdomen- normal bowel sounds, nondistended, soft, nontender Sacrum- Stage 2 pressure ulcer with dark eschar. Picture in images Extremities- LUE: moderate edema, tenderness present in dorsal aspect. RLE: thigh- mild edema, fem cath in place- no signs of infection no pretibial edema, no calf tenderness Neuro- no new gross focal neurologic deficits Skin- warm & dry Results & Data Results & Data Vital Signs (Past 12 Hours) Vital Signs Temp Pulse Pulse Resp BP Pulse Ox O2 Del Method 08/19/22 11:16 36.7 C 69 18 102/66 93 Room Air 08/19/22 06:01 79 08/19/22 07:43 36.4 C L 74 18 140/83 95 Room Air 08/19/22 07:14 82 14 96 Nasal Cannula 08/19/22 04:23 37.1 C 77 20 137/76 95 Room Air 08/19/22 00:27 74 FiO2 08/19/22 11:16 08/19/22 06:01 08/19/22 07:43 08/19/22 07:14 21 08/19/22 04:23 08/19/22 00:27 Laboratory Results Laboratory Results WBC 5.15 K/ul (4.8-10.8) 08/19/22 04:01 RBC 4.16 M/uL (4.70-6.10) L 08/19/22 04:01 Hgb 10.6 g/dl (14.0-18.0) L 08/19/22 04:01 Hct 35.1 % (42.0-52.0) L 08/19/22 04:01 MCV 84.4 fL (80.0-100.0) 08/19/22 04:01 MCH 25.5 pg (25.0-34.0) 08/19/22 04:01 MCHC 30.2 g/dL (32.0-36.0) L 08/19/22 04:01 RDW Std Deviation 63.2 fL (36.4-46.3) H 08/19/22 04:01 RDW Coeff of Caroline 20.8 % (11.5-14.5) H 08/19/22 04:01 Plt Count 338 K/uL (130-400) 08/19/22 04:01 MPV 9.8 fL (9.4-12.4) 08/19/22 04:01 Immature Gran % (Auto) 0.4 % 08/19/22 04:01 Neut % (Auto) 64.3 % 08/19/22 04:01 Lymph % (Auto) 27.4 % 08/19/22 04:01 [place] % (Auto) 5.2 % 08/19/22 04:01 Eos % (Auto) 1.9 % 08/19/22 04:01 Baso % (Auto) 0.8 % 08/19/22 04:01 Neut # (Auto) 3.31 K/uL (1.40-6.50) 08/19/22 04:01 Lymph # (Auto) 1.41 K/uL (1.2-3.4) 08/19/22 04:01 [place] # (Auto) 0.27 K/uL (0.11-0.59) 08/19/22 04:01 Eos # (Auto) 0.10 K/uL (0-0.50) 08/19/22 04:01 Baso # (Auto) 0.04 K/uL (0-0.2) 08/19/22 04:01 Immature Gran # (Auto) 0.02 K/uL (0.01-0.20) 08/19/22 04:01 Absolute Nucleated RBC Cancelled 08/17/22 07:00 Nucleated RBC % (auto) Cancelled 08/17/22 07:00 Neutrophils % (Manual) Cancelled 08/17/22 07:00 Band Neutrophils % Cancelled 08/17/22 07:00 Lymphocytes % (Manual) Cancelled 08/17/22 07:00 Prolymphocyte % Cancelled 08/17/22 07:00 Reactive Lymphs % (Man) Cancelled 08/17/22 07:00 Monocytes % (Manual) Cancelled 08/17/22 07:00 Eosinophils % (Manual) Cancelled 08/17/22 07:00 Basophils % (Manual) Cancelled 08/17/22 07:00 Metamyelocytes % (Man) Cancelled 08/17/22 07:00 Myelocytes % (Man) Cancelled 08/17/22 07:00 Promyelocytes % (Man) Cancelled 08/17/22 07:00 Blast Cells % (Manual) Cancelled 08/17/22 07:00 Plasma Cell % (Manual) Cancelled 08/17/22 07:00 Other Cells % Cancelled 08/17/22 07:00 Nucleated RBC % Cancelled 08/17/22 07:00 Neutrophils # (Manual) Cancelled 08/17/22 07:00 Band Neutrophils # Cancelled 08/17/22 07:00 Total Absolute Neuts Cancelled 08/17/22 07:00 Lymphocytes # (Manual) Cancelled 08/17/22 07:00 Prolymphocyte # Cancelled 08/17/22 07:00 Reactive Lymphs # Cancelled 08/17/22 07:00 Total Abs Lymphocytes Cancelled 08/17/22 07:00 Monocytes # (Manual) Cancelled 08/17/22 07:00 Eosinophils # (Manual) Cancelled 08/17/22 07:00 Basophils # (Manual) Cancelled 08/17/22 07:00 Metamyelocytes # (Man) Cancelled 08/17/22 07:00 Myelocytes # (Manual) Cancelled 08/17/22 07:00 Promyelocytes # (Man) Cancelled 08/17/22 07:00 Blast Cells # (Man) Cancelled 08/17/22 07:00 Plasma Cell # (Manual) Cancelled 08/17/22 07:00 Other Cells # Cancelled 08/17/22 07:00 Nucleated RBCs # (Man) Cancelled 08/17/22 07:00 Hypersegmented Neuts Cancelled 08/17/22 07:00 Hyposegmented Neuts Cancelled 08/17/22 07:00 Hypogranular Neuts Cancelled 08/17/22 07:00 Large Granular Lymphs Cancelled 08/17/22 07:00 # Lrg Granular Lymphs Cancelled 08/17/22 07:00 Hairy Cells Cancelled 08/17/22 07:00 Smudge Cells Cancelled 08/17/22 07:00 Toxic Granulation Cancelled 08/17/22 07:00 Toxic Vacuolation Cancelled 08/17/22 07:00 Dohle Bodies Cancelled 08/17/22 07:00 Esau Rods Cancelled 08/17/22 07:00 Platelet Estimate Cancelled 08/17/22 07:00 Hypogranular Platelets Cancelled 08/17/22 07:00 Giant Platelets Cancelled 08/17/22 07:00 Platelet Satelliting Cancelled 08/17/22 07:00 RBC Morphology Cancelled 08/17/22 07:00 Polychromasia 1+ 08/18/22 06:09 Hypochromasia Cancelled 08/17/22 07:00 Poikilocytosis Cancelled 08/17/22 07:00 Basophilic Stippling Cancelled 08/17/22 07:00 Anisocytosis Present 08/19/22 04:01 Microcytosis Cancelled 08/17/22 07:00 Macrocytosis Cancelled 08/17/22 07:00 Spherocytes 1+ 08/18/22 06:09 Pappenheimer Bodies Cancelled 08/17/22 07:00 Sickle Cells Cancelled 08/17/22 07:00 Target Cells Cancelled 08/17/22 07:00 Tear Drop Cells Cancelled 08/17/22 07:00 Ovalocytes Cancelled 08/17/22 07:00 Stomatocytes Cancelled 08/17/22 07:00 [place] Bodies Cancelled 08/17/22 07:00 Echinocytes 1+ 08/19/22 04:01 Acanthocytes (Spur) Cancelled 08/17/22 07:00 Rouleaux Cancelled 08/17/22 07:00 RBC Agglutinates Cancelled 08/17/22 07:00 Schistocytes Cancelled 08/17/22 07:00 [place] Cell Cancelled 08/17/22 07:00 PT 13.0 Seconds (9.0-12.0) H 08/09/22 15:05 INR 1.2 (0.9-1.1) H 08/09/22 15:05 APTT 33.1 Seconds (21.0-31.0) H 08/09/22 15:05 PTT Ratio 1.2 08/09/22 15:05 Heparin Anti-Xa, LM Wt 0.67 IU/ML (< 0.10) 08/19/22 04:01 Sodium 143 mmol/L (136-145) 08/16/22 06:00 Potassium 3.6 mmol/L (3.5-5.1) 08/16/22 06:00 Chloride 114 mmol/L (98-107) H 08/16/22 06:00 Carbon Dioxide 25 mmol/L (21-32) 08/16/22 06:00 Anion Gap 4 (3-11) 08/16/22 06:00 BUN 14 mg/dl (6-23) 08/16/22 06:00 Creatinine 0.38 mg/dl (0.6-1.4) L 08/16/22 06:00 Est Cr Clr Drug Dosing 201.7 ml/min 08/16/22 06:00 Est GFR ( Amer) 148.6 ml/min 08/16/22 06:00 Est GFR (Non-Af Amer) 128.2 ml/min 08/16/22 06:00 BUN/Creatinine Ratio 36.8 (10-20) H 08/16/22 06:00 Glucose 166 mg/dl (70-99(Fasting)) H 08/16/22 06:00 POC Glucose 177 mg/dl (70-99) H 08/19/22 11:19 Lactate 1.5 mmol/L (0.4-2.0) 08/09/22 15:05 Calcium 7.6 mg/dl (8.5-10.1) L 08/16/22 06:00 Phosphorus 3.2 mg/dl (2.5-4.9) 08/10/22 07:31 Magnesium 1.5 mg/dl (1.7-2.4) L 08/15/22 06:16 Iron 34 mcg/dl (35-175) L 08/13/22 06:01 TIBC 184 mcg/dl (250-450) L 08/13/22 06:01 Unsaturated IBC 150 mcg/dl (155-355) L 08/13/22 06:01 Transferrin 161 mg/dl (200-360) L 08/10/22 12:50 Transferrin % Sat 18 % (20-50) L 08/13/22 06:01 Ferritin 256.6 ng/ml (8-388) 08/10/22 12:50 Total Bilirubin 0.9 mg/dl (0.2-1.0) 08/09/22 15:05 Direct Bilirubin 0.1 mg/dl (0-0.2) 08/09/22 15:05 AST 7 U/L (13-39) L 08/09/22 15:05 ALT 14 U/L (7-52) 08/09/22 15:05 Alkaline Phosphatase 109 U/L (34-104) H 08/09/22 15:05 Ammonia 25.0 umol/L (18-72) 08/09/22 15:05 Total Creatine Kinase 175 U/L (30-223) 08/09/22 15:05 Troponin I High Sens 1008.3 pg/ml (0-20) H* D 08/10/22 07:31 Total Protein 5.5 gm/dl (6.0-8.3) L 08/09/22 15:05 Albumin 2.6 gm/dl (3.4-5.0) L 08/09/22 15:05 Vitamin B12 436 pg/ml (180-914) 08/10/22 12:50 Procalcitonin 0.05 ng/ml (0-0.5) 08/09/22 15:05 TSH 2.154 uIu/ml (0.300-4.500) 08/13/22 18:24 Urine Color [place] 08/11/22 00:41 Urine Appearance Clear (Clear) 08/11/22 00:41 Urine pH 5.5 (4.5-7.5) 08/11/22 00:41 Ur Specific [place] 1.040 (1.000-1.030) H 08/11/22 00:41 Urine Protein Trace (Negative) H 08/11/22 00:41 Urine Glucose (UA) Negative (Negative) 08/11/22 00:41 Urine Ketones Trace (Negative) H 08/11/22 00:41 Urine Blood Negative (Negative) 08/11/22 00:41 Urine Nitrite Positive (Negative) A 08/11/22 00:41 Urine Bilirubin Negative (Negative) 08/11/22 00:41 Urine Urobilinogen Negative (Negative) 08/11/22 00:41 Ur Leukocyte Esterase 2+ (Negative) H 08/11/22 00:41 Urine WBC (Auto) >30 /hpf (0-5) H 08/11/22 00:41 Urine RBC (Auto) 0-4 /hpf (0-4) 08/11/22 00:41 U Hyaline Cast (Auto) 1-5 /lpf (0-5) 08/11/22 00:41 U Epithel Cells (Auto) 0-5 /lpf (0-5) 08/11/22 00:41 Urine Bacteria (Auto) Negative (Negative) 08/11/22 00:41 Ur Renal Epithelial Cell Not Reportable 08/09/22 15:50 Urine Yeast Not Reportable 08/11/22 00:41 Stool Occult Bld Scrn Negative (Negative) 08/14/22 11:16 SARS-CoV-2 (PCR) NEGATIVE (Negative) 08/09/22 16:00 Influenza Type A (PCR) Negative (Neg) 08/09/22 16:00 Influenza Type B (PCR) Negative (Neg) 08/09/22 16:00 RSV (RT-PCR) Negative (Neg) 08/09/22 16:00 Blood Parasites ID Cancelled 08/17/22 07:00 Blood Type A Positive 08/09/22 15:09 Antibody Screen NEGATIVE 08/09/22 15:09 Crossmatch See Detail 08/09/22 15:[address] 08/09/22 12:34 CT SCAN OF THE BRAIN WITHOUT IV CONTRAST CLINICAL HISTORY: Lethargy. COMPARISON STUDY: CT of the brain dated 08/20/2021. TECHNIQUE: Unenhanced axial CT scan of the brain is performed from the vertex to the skull base. A dose lowering technique was utilized adhering to the principles of ALARA. CT DOSE: 614.27 mGy.cm FINDINGS: Brain parenchyma: There is age-advanced involutional change noting advanced confluent subcortical and periventricular microangiopathic disease. There is no hemorrhage, mass effect, or evidence of acute territorial ischemia by CT criteria. A small chronic infarct is noted in the high right parietal lobe. Rose-white matter differentiation is preserved. No extra-axial fluid collection is seen. Ventricles, sulci, cisterns: Prominent secondary to involutional change. Intracranial vasculature: There is atherosclerotic calcification of the cavernous carotid and vertebral arteries. Calvarium: Unremarkable. Sinuses and mastoids: The visualized paranasal sinuses are clear. The mastoid air cells are well pneumatized. Orbits: The bony orbits are grossly intact. IMPRESSION: There is no hemorrhage, mass effect, or evidence of acute territorial ischemia by CT criteria. ACT 112: Negative or not required by law. Electronically signed by: Donny Fernando M.D. 08/09/2022 3:38 PM Abdomen/Pelvis CT 08/10/22 00:22 CR Exam(s): CT ABDOMEN + PELVIS Without Contrast EXAM: CT Abdomen and Pelvis Without Intravenous Contrast CLINICAL HISTORY: Reason for exam: anemia. any bleeding?. TECHNIQUE: Axial computed tomography images of the abdomen and pelvis without intravenous contrast. CTDI is 16.7 mGy and DLP is 945.35 mGy-cm. Automated exposure control was utilized for the study. A dose lowering technique was utilized adhering to the principles of ALARA. COMPARISON: CT Abdomen Pelvis dated 03/18/2020 FINDINGS: Artifacts: Artifact in the upper abdomen from patient's arms. Lung bases: See below. Pleural space: Small bilateral pleural effusions greater on the left. Mild bibasilar atelectasis. Heart: Marked coronary artery calcifications. ABDOMEN: Liver: Unremarkable. Gallbladder and bile ducts: Unremarkable. No calcified stones. No ductal dilation. Pancreas: Unremarkable. No ductal dilation. Spleen: Unremarkable. No splenomegaly. Adrenals: Nodular adrenal glands, similar to the prior. Kidneys and ureters: Left renal low-density lesion better seen on the prior. No obstructing stones. No hydronephrosis. Stomach and bowel: Large amount of stool within distended rectum. No mucosal thickening. No bowel obstruction. PELVIS: Appendix: No findings to suggest acute appendicitis. Bladder: Bladder wall thickening of partially distended bladder. No stones. Reproductive: Unremarkable as visualized. ABDOMEN and PELVIS: Intraperitoneal space: See above. Bones/joints: Median sternotomy wires. Minimal sclerosis of the left inferior pubic ramus, new since the prior. Soft tissues: Enlarged right abductor musculature which appears hyperdense. Partially visualized on the inferior most images. Approximately 5 cm in transverse dimension. Dystrophic soft tissue calcifications/heterotopic ossification bilaterally in the musculature between the inferior pubic rami and proximal femurs. Chronic appearance although new since the prior study. Partially visualized. Anasarca. Soft tissue calcifications noted in the left forearm soft tissues, partially visualized. Vasculature: Marked diffuse atherosclerotic calcifications. Lymph nodes: Unremarkable. No enlarged lymph nodes. Tubes, lines and devices: Right this catheter with the tip in the right common iliac vein. IMPRESSION: 1. Enlarged right abductor musculature which appears hyperdense. Partially visualized on the inferior most images. Likely represents hematoma, approximately 5 cm in transverse dimension. Active bleeding or underlying lesion not excluded. 2. Large amount of stool within distended rectum. 3. Bladder wall thickening of partially distended bladder. May reflect cystitis or chronic bladder obstruction. 4. Dystrophic soft tissue calcifications/heterotopic ossification bilaterally in the musculature between the inferior pubic rami and proximal femurs. Chronic appearance although new since the prior study. Partially visualized. 5. Minimal sclerosis of the left inferior pubic ramus, new since the prior. Nonspecific. Correlate for infectious/inflammatory or neoplastic process. 6. Anasarca. 7. Small bilateral pleural effusions greater on the left. Mild bibasilar atelectasis. Communications: Verify Receipt Call Doctor Above results Electronically signed by: Thiago Wheeler M.D. 08/10/22 02:28 AM Lower Extremity CTA 08/10/22 02:42 Exam(s): CTA EXTREMITY RIGHT LOWER W/WO Contrast IV Amt: 105 ml optiray 320 EXAM: CT Angiography of the Right Lower Extremity With Intravenous Contrast CLINICAL HISTORY: Reason for exam: right thigh hematoma. active bleeding?. TECHNIQUE: Axial computed tomographic angiography images of the right lower extremity with intravenous contrast. CTDI is 49.29 mGy and DLP is 1250.2 mGy-cm. Automated exposure control was utilized for the study. A dose lowering technique was utilized adhering to the principles of ALARA. MIP reconstructed images were created and reviewed. CONTRAST: Patient received 105 ml optiray 320 of IV contrast COMPARISON: None. FINDINGS: VASCULATURE: Aorta: Severe calcified atherosclerotic disease tibioperoneal trunk. There is calcified atherosclerotic disease of aorta with no aneurysm. Right iliac arteries: Mild calcified atherosclerotic disease throughout the right external iliac artery with no significant stenosis. Right femoral/popliteal arteries: Scattered calcified atherosclerotic disease throughout the right superficial femoral artery, more severe distally. Cannot exclude areas of moderate to high-grade stenosis involving the distal superficial femoral artery. Severe atherosclerotic disease of the popliteal artery with areas of moderate to high-grade stenosis. Right calf/foot arteries: Severe disease through the right anterior tibial artery with multiple areas of high-grade stenosis in a short segment occlusions. Severe disease through the posterior tibial artery with multiple areas of high-grade stenosis and short segment occlusion. Distal reconstitution at the ankle noted. Moderate disease through the peroneal artery seen as a continuous vessel to the ankle. LOWER EXTREMITY: Bones/joints: There is a right-sided femoral line in place. Soft tissues: There is a large hematoma involving the medial aspect of the upper thigh measuring approximately 5.5 x 6.5 cm in axial dimension. Questionable heterogeneous density surrounding the right femur are concerning for second hematoma and measuring 5.7 x 5.5 cm in axial dimension. There is no evidence of active bleed. Bladder: Intrapelvic structures revealed borderline thickening of urinary bladder wall, cannot exclude cystitis. IMPRESSION: 1. Hematoma involving the medial and upper aspect of the right thigh and surrounding the mid cephalad femur. No evidence of active bleed. 2. Severe atherosclerotic disease involving the right lower extremity more significant through the distal superficial femoral and popliteal artery with areas of high-grade stenosis distally. 3. Severe disease through the trifurcation vessels with single vessel runoff through the peroneal artery. Multiple areas of high-grade stenosis or occlusions with the anterior tibial artery and posterior tibial artery as described. Electronically signed by: Merline Macias MD 08/10/22 05:[address] 08/10/22 09:47 CT forearm LT wo con, CT humerus LT wo con CLINICAL HISTORY: edema, r/o hematoma TECHNIQUE: Multidetector row helical CT of the left forearm and left humerus was performed without intravenous contrast. Coronal and sagittal reformations were obtained. Automated dose lowering techniques and/or adjustment according to patient size were utilized for this examination. Comparison: None available at the time of this dictation. FINDINGS: Heterotopic ossification is seen about the elbow. The joint spaces are maintained. No joint effusion is seen. Soft tissue edema is seen about the elbow and forearm without discrete drainable fluid collection. Atherosclerosis is noted. IMPRESSION: Soft tissue edema and heterotopic ossification. This may represent cellulitis, simple edema or contusion. No discrete fluid collection is seen. ACT 112: Negative or not required by law. Electronically signed by: Bradley Reeves M.D. 08/10/2022 11:[address] 08/10/22 09:47 CT forearm LT wo con, CT humerus LT wo con CLINICAL HISTORY: edema, r/o hematoma TECHNIQUE: Multidetector row helical CT of the left forearm and left humerus was performed without intravenous contrast. Coronal and sagittal reformations were obtained. Automated dose lowering techniques and/or adjustment according to patient size were utilized for this examination. Comparison: None available at the time of this dictation. FINDINGS: Heterotopic ossification is seen about the elbow. The joint spaces are maintained. No joint effusion is seen. Soft tissue edema is seen about the elbow and forearm without discrete drainable fluid collection. Atherosclerosis is noted. IMPRESSION: Soft tissue edema and heterotopic ossification. This may represent cellulitis, s imple edema or contusion. No discrete fluid collection is seen. ACT 112: Negative or not required by law. Electronically signed by: Bradley Reeves M.D. 08/10/2022 11:42 AM Chest X-Ray 08/10/22 13:38 XR chest 1V portable CLINICAL HISTORY: r/o pneumonia,edema TECHNIQUE: Single frontal radiograph of the chest was obtained. Comparison: Comparison is made to chest radiograph 08/09/2022 FINDINGS: Median sternotomy wires are unchanged. Calcified aortic knob is seen. The lungs are clear. No evidence of pleural effusion or pneumothorax. IMPRESSION: No acute abnormalities and in particular no radiographic evidence of pneumonia. ACT 112: Negative or not required by law. Electronically signed by: Bradley Reeves M.D. 08/10/2022 3:[address] 08/13/22 07:35 CT femur RT wo con HISTORY: 62 years-old Male ff up hematoma follow-up study in a patient with reported right thigh hematoma COMPARISON: CTA right lower extremity 08/10/2022 TECHNIQUE: Multiple axial CT images of the right femur were obtained without the use of IV contrast. A dose lowering technique was used consistent with the principals of ALARA. FINDINGS: Decompressed urinary bladder with Hagan catheter. Prostamegaly. Moderate fecal retention of the rectum with mild nonspecific circumferential rectal wall thickening. Trace free fluid within the pelvis. Extensive vascular calcifications. Mild right inguinal lymphadenopathy with lymph nodes measuring up to 1.1 cm. Intramuscular hematomas are again noted throughout the right pelvis and thigh. Ill-defined intramuscular hemorrhage within the right adductor space measures up to approximately 8.6 x 5.5 cm, stable. Large area of hemorrhage within the proximal right upper thigh, located within the vastus intermedius measuring up to 6.8 x 6.4 x 17 cm has not significantly changed. Smaller hematoma within the vastus medialis is also similar in size. Moderate diffuse subcutaneous and deep tissue edema of the bladder and right upper extremity. 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 Demineralized appearance of the bones. There is no acute fracture, dislocation, osseous erosion or suspicious bone lesion identified. Moderate osteoarthritis of the hip and medial compartment right knee with mild patellofemoral and lateral compartment osteoarthritis. IMPRESSION: 1. Large intramuscular hematomas within the right adductor space and right quadriceps appear generally stable compared to the study from 08/10/2022. 2. No acute fracture or dislocation identified. 3. 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 4. Diffuse subcutaneous and deep tissue edema redemonstrated. ACT 112: Negative or not required by law. The above report was generated using voice recognition software. It may contain grammatical, syntax or spelling errors. Electronically signed by: Abdon Gr M.D. 08/13/2022 9:27 AM Extremity Venous Study 08/18/22 12:04 ULTRASOUND LEFT UPPER EXTREMITY VENOUS CLINICAL HISTORY: Left arm pain and swelling. COMPARISON STUDY: Left upper extremity venous ultrasound dated 06/03/2022. CT of the left humerus dated 08/10/2022. TECHNIQUE: Real-time, grayscale, and color Doppler sonography of the deep veins of the left upper extremity is performed. Compression and augmentation were utilized. FINDINGS: There is no sonographic evidence of deep venous thrombosis identified in the left upper extremity. The left internal jugular, axillary, and brachial veins are patent and normally compressible. Normal venous waveforms and augmentation are seen within the left subclavian vein. The cephalic and basilic veins are clear. The visualized radial and ulnar veins are patent. There is a large complex nonvascular fluid collection in the left axilla. This measures approximate 7 x 4 x 7 cm. Soft tissue edema seen in the left upper extremity. IMPRESSION: 1. There is no sonographic evidence of deep venous thrombosis identified in the left upper extremity. 2. There is a large complex left axillary fluid collection, which is typical for a hematoma. Clinical correlation will be required. ACT 112: Negative or not required by law. Electronically signed by: Donny Fernando M.D. 08/18/2022 2:27 PM (1) Anemia Anemia type: unspecified type Qualified Code(s): D64.9 - Anemia, unspecified
[2022-08-19] MEDS: ENOXAPARIN 100 MG/1ML SYR SQ SCH (12:37)
--- NOTE | 2022-08-19 17:23 | Surgery Consultation ---
This case was discussed with the surgical PA Date of Consultation August 19, 2022 Assessment & Plan (1) Sacral wound: This is a 62yM with a PMH of recurrent CVA and DVT on plavix and therapeutic lovenox currently, CAD, DM2, HTN, who presented here to the [facility] ED on 08/09/22 with lethargy and anemia. Patient founded to have R thigh hematoma and UE hematoma's that required no intervention and he was given blood transfusion with stabilization. He has since been founded to have a sacral wound that has progressively deteriorated. Wound care currently following. is adamant that the patient did not have this at home prior to admission. He is primarily bed bound and does not ambulate. Per he has a hospital bed/air mattress at home and participates in PT/OT. A/P: Patient here with sacral wound that has been deteriorating. WBC 5.5. On exam patient noted to have a few areas of eschar with some surrounding erythema. No tenderness appreciated. Vitals stable. Would benefit from some sort of debridement, however patient with multiple medical issues and would be risk to taking patient to OR under general anesthesia. Also patient currently on plavix and therapeutic lovenox for h/o CVA's and DVTs. For now recommend ongoing supportive and local wound care. Will suggest collagenase for chemical debridement of the areas of tissue to see if this will help soften/slough off the areas of eschar. Frequent repositioning. Re-evaluate if patient on appropriate mattress for patient. Will continue this care through the and he may continue on his blood thinners for now. Will re-evaluate on Tuesday to see how chemical debridement is working and if there is a need for more procedural d ebridement at that time we will discuss with and hospitalist at that time to coordinate. Pt's in agreement to trying this approach at this time vs jumping right into surgery. She appreciates a multi disciplinary approach to his care and wants medicine/hematology/cardiology all on board and in agreement if we were to proceed with bedside vs surgical debridement at some point this admission. Reassured the that we would not proceed to any invasive procedures without her obvious consent. History of Present Illness Attending Physician: Christian Eastman MD History of Present Illness This is a 62yM with a PMH of recurrent CVA and DVT on plavix and therapeutic lovenox currently, CAD, DM2, HTN, who presented here to the [facility] ED on 08/09/22 with lethargy and anemia. Patient founded to have R thigh hematoma and UE hematoma's that required no intervention and he was given blood transfusion with stabilization. He has since been founded to have a sacral wound that has progressively deteriorated. Wound care currently following. is adamant that the patient did not have this at home prior to admission. He is primarily bed bound and does not ambulate. Per he has a hospital bed/air mattress at home and participates in PT/OT. H&P largely obtained from who is at bedside. Allergies Allergy/AdvReac Type Severity Reaction Status Date / Time No Known Allergies Allergy Verified 08/09/22 15:58 Home Medications Medication Instructions Recorded Confirmed Type nitroglycerin 0.4 mg sublingual 0.4 mg sublingual DIRECTED PRN 08/09/19 08/09/22 History tablet Chest Pain baclofen 5 mg tablet 5 mg PO QAM #30 tabs 09/22/20 08/09/22 Rx carvedilol 12.5 mg tablet 12.5 mg PO BID #60 tabs 09/22/20 08/09/22 Rx clopidogrel 75 mg tablet (Plavix) 75 mg PO QAM #30 tabs 09/22/20 08/09/22 Rx insulin glargine 100 unit/mL See Rx Instructions .Route 09/22/20 08/09/22 Rx subcutaneous solution (Lantus .COMPLEX #10 mL U-100 Insulin) insulin aspart U-100 100 unit/mL 10 unit subcut AC 01/11/21 08/09/22 History subcutaneous solution (Novolog U-100 Insulin aspart) tamsulosin 0.4 mg capsule 0.4 mg PO HS 01/11/21 08/09/22 History atorvastatin 80 mg tablet 80 mg PO QPM 05/17/21 08/09/22 History ferrous sulfate 325 mg (65 mg 325 mg PO QAM #30 tabs 01/15/22 08/09/22 Rx iron) tablet,delayed release enoxaparin 120 mg/0.8 mL 120 mg subcut BID 08/09/22 08/09/22 History subcutaneous syringe lisinopril 5 mg tablet 5 mg PO QAM 08/09/22 08/09/22 History Patient History Medical History Aortic valve stenosis BPH with obstruction/lower urinary tract symptoms CAD (coronary artery disease) 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 in the setting of diabetes for which patient initially underwent off pump 3 vessel coronary artery bypass grafting in 2006 with DUARTE to LAD, SVG to circumflex and SVG to PDA Bare metal stent to protected left main coronary artery 08/13/2015 PCI drug-eluting stent to the saphenous vein graft to RPDA 04/17/2014 PCI, drug-eluting stent to the ostial portion of the SVG to RCA 12/04/2014 for severe in stent restenosis Carotid stenosis Diabetic peripheral neuropathy associated with type 2 diabetes mellitus Dyslipidemia H/O deep venous thrombosis Hemiplegia affecting right dominant side History of CVA (cerebrovascular accident) History of pancreatitis HTN (hypertension) Hypomagnesemia Monoplegia affecting right dominant side Obesity Osteomyelitis of great toe of right foot Proliferative diabetic retinopathy Retinal edema Right foot drop Status post administration of all doses of COVID-19 vaccine series Status post cerebrovascular accident Status post myocardial infarction Superior mesenteric artery stenosis Type 2 diabetes mellitus Surgical History Hx of vitrectomy S/P angioplasty with stent S/P CABG x 3 S/P PTCA (percutaneous transluminal coronary angioplasty) Family History Father Heart disease Social History Smoking Status: Former smoker Tobacco Type: Cigarettes Second Hand Exposure: No; Do You Dip or Chew Tobacco: No; Tobacco Cessation Education Requested by Patient: No Hx Alcohol Use: No Hx Substance Use: No Preferred Language: Scottish Communication Ability: Impaired Visual Impairment: No Limitations Hearing Ability: Normal Erp Engineer Required: No Beliefs That Will Affect Care: None marital status: Current Living Situation: Spouse Current Living Situation Comment: Lives with in a split level home but he is in basement current occupational status: disabled Other Information That Helps Us Care for You: No Feels Safe at Home: Yes Safety Concerns: Feels Safe At This Time Assistive Devices: Hospital Bed Review of Systems Review of Systems: Unobtainable due to cognitive status mostly due to non verbal Physical Exam Physical Exam: awake but resting in bed Respiratory: normal respiratory effort Gastrointestinal (Abdomen): Percussion/Palpation: abdomen soft buttocks noted with multiple areas of eschar noted, with surrounding erythema. no tenderness appreciated. had BM while examining bottom Results & Data Vital Signs (Past 12 Hours) Vital Signs Temp Pulse Pulse Resp BP Pulse Ox O2 Del Method 08/19/22 14:44 76 08/19/22 15:55 36.9 C 81 18 123/67 95 Room Air 08/19/22 11:16 36.7 C 69 18 102/66 93 Room Air 08/19/22 06:01 79 08/19/22 07:43 36.4 C L 74 18 140/83 95 Room Air 08/19/22 07:14 82 14 96 Nasal Cannula FiO2 08/19/22 14:44 08/19/22 15:55 08/19/22 11:16 08/19/22 06:01 08/19/22 07:43 08/19/22 07:14 21 PG Care Time/CCT Total # of Minutes Spent Total Time Spent with Patient: Total time spent is greater than 50% in coordination of care (as documented) at patient's floor/unit and/or counseling patient: Coding Level of Care Code 84033 INT INP/OBS CARE 2/55MIN Diagnoses Sacral wound S31.000A
[2022-08-19] MEDS: ATORVASTATIN 40 MG TAB PO SCH (20:56)
[2022-08-19] MEDS: TAMSULOSIN HCL 0.4 MG CAP PO SCH (20:56)
[2022-08-19] MEDS: COLLAGENASE OINT 30 GM TUBE EXT SCH (20:57)
[2022-08-20] MEDS: ENOXAPARIN 100 MG/1ML SYR SQ SCH ×3 (00:11→23:45)
[2022-08-20 06:34] LABS: Basophils # (auto) 0.04 K/uL (0-0.2); Basophils % (auto) 0.7 %; Eosinophils # (auto) 0.06 K/uL (0-0.50); Hematocrit (blood only) 34.6 % (42.0-52.0); Hemoglobin 10.5 g/dl (14.0-18.0); Immature Granulocytes # (auto) 0.02 K/uL (0.01-0.20); Immature Granulocytes % (auto) 0.3 %; Lymphocytes # (auto) 1.55 K/uL (1.2-3.4); Lymphocytes % (auto) 26.4 %; Mean Corpuscular Hemoglobin 25.5 pg (25.0-34.0); Mean Corpuscular Hgb Conc 30.3 g/dL (32.0-36.0); Mean Platelet Volume 10.6 fL (9.4-12.4); Monocytes # (auto) 0.32 K/uL (0.11-0.59); Monocytes % (auto) 5.5 %; Neutrophils # (auto) 3.88 K/uL (1.40-6.50); Neutrophils % (auto) 66.1 %; Platelet Count 325 K/uL (130-400); RDW Coefficient of Variation 21.1 % (11.5-14.5); RDW Standard Deviation 63.8 fL (36.4-46.3); Red Blood Count 4.12 M/uL (4.70-6.10); White Blood Count 5.87 K/ul (4.8-10.8)
--- NOTE | 2022-08-20 06:50 | Hospitalist Progress Note ---
Date of Service August 20, 2022 Assessment & Plan (1) H/O deep venous thrombosis: Plan: Currently therapeutic with respect to anti-Xa levels. Should work closely with an anticoagulation clinic as an outpatient to make sure that ongoing balance of concerns over additional bleeding versus thrombosis continue to catalyze shared decision making with his about setting optimal goals and parameters (2) Anemia: Plan: Hemoglobin has been quite stable suggesting against any further significant bleeding though in the long-term will need to be alert to the possibility of chronic low-level GI losses. Plan Would suggest he remain at the current dose of enoxaparin and as above coordinate with an anticoagulation clinic once he is an outpatient for long-term strategization Patient follow-up should be with his PCP or to return to [facility] hematology to continue to monitor for signs of further GI bleed/worsening iron deficiency and periodically reassess the need for further iron supplementation/further GI work- up/reassessment for additional sites of soft tissue bleeding I will "sign off" but please reconsult if there are additional issues that arise during this hospitalization with which we can help Admission and Anticipated Discharge Date Admission Date: August 09, 2022 Subjective Will look at me when spoken to but still with minimal responsiveness and what is at least an expressive if not a combination expressive/receptive dysphasia/aphasia Seems in no acute Physical Exam Physical Exam: Vital signs stable, dense neurological deficits but is not tachypneic or another obvious physical distress Results & Data Results & Data Vital Signs (Past 12 Hours) Vital Signs Temp Pulse Pulse Resp BP Pulse Ox O2 Del Method 08/20/22 00:00 76 08/20/22 04:10 37.3 C 89 18 111/69 93 Room Air 08/19/22 21:00 Room Air 08/19/22 23:35 37.2 C 81 18 114/67 95 Room Air 08/19/22 19:30 89 20 96 Room Air 08/19/22 19:12 37.3 C 88 18 136/76 96 Room Air PG Care Time/CCT Total # of Minutes Spent Total Time Spent with Patient: Total time spent is greater than 50% in coordination of care (as documented) at patient's floor/unit and/or counseling patient: Coding Level of Care Code 27308 SUB INP/OBS CARE 1/25MIN Diagnoses H/O deep venous thrombosis Z86.718 Anemia D64.9 Anemia type: unspecified type (2) Anemia Anemia type: unspecified type Qualified Code(s): D64.9 - Anemia, unspecified
[2022-08-20 06:55] LABS: Alanine Aminotransferase 5 U/L (7-52); Albumin Globulin Ratio 0.8 (0.9-2); Albumin Level 2.6 gm/dl (3.4-5.0); Alkaline Phosphatase 139 U/L (34-104); BUN Creatinine Ratio 52.5 (10-20); Bilirubin,Total 0.6 mg/dl (0.2-1.0); Blood Urea Nitrogen 21 mg/dl (6-23); Calcium 7.8 mg/dl (8.5-10.1); Carbon Dioxide 26 mmol/L (21-32); Chloride 113 mmol/L (98-107); Creatinine Clr Calc Pharmacy 192.6 ml/min; Est GFR (African American) 145.5 ml/min; Est GFR (Non-African American) 125.5 ml/min; Globulin 3.2 gm/dl (2.5-4.0); Glucose 147 mg/dl (70-99(Fasting)); Total Protein 5.8 gm/dl (6.0-8.3)
[2022-08-20] MEDS: SODIUM CHLOR 7% 4 ML NEB NEB SCH ×2 (07:02→19:11)
[2022-08-20] MEDS: ALBUT/IPRATROP 3MG/0.5MG NEB 3 ML VIAL NEB SCH ×2 (07:02→19:11)
[2022-08-20 07:13] LABS: Anisocytosis Present; Echinocytes 1+; Polychromasia 1+
[2022-08-20] MEDS: BACLOFEN 10 MG TAB PO SCH (08:27)
[2022-08-20] MEDS: CLOPIDOGREL BISULFATE 75 MG TAB PO SCH (08:28)
[2022-08-20] MEDS: carvediloL 12.5 MG TAB PO SCH ×2 (08:29→20:56)
[2022-08-20] MEDS: FOLIC ACID 1 MG TAB PO SCH (08:29)
[2022-08-20] MEDS: MAGNESIUM OXIDE 400 MG TAB PO SCH (08:30)
[2022-08-20] MEDS: COLLAGENASE OINT 30 GM TUBE EXT SCH ×2 (08:31→20:55)
[2022-08-20] MEDS: PANTOprazole 40 MG TAB PO SCH ×2 (08:31→20:56)
[2022-08-20] MEDS: INSULIN ASPART PER UNIT CHARGE SC SCH ×4 (08:37→20:55)
[2022-08-20] MEDS: LANTUS PER UNIT CHARGE SQ SCH (08:39)
--- NOTE | 2022-08-20 14:22 | Hospitalist Progress Note ---
Date of Service August 20, 2022 Assessment & Plan (1) Anemia: Plan: (1)Acute blood loss anemia, likely secondary to right thigh hematoma and left arm hematoma spontaneous, in the setting of Lovenox and Plavix use History of Recurrent DVT, and CVA Plan: Patient presenting from home with reported increased lethargy, taking Lovenox 120mg BID and Plavix As an outpatient, patient has been noted to have a downtrending hemoglobin (11.5 --> 8.0 --> 9.1 --> 8.9 on 07/27). Patient was started on iron replacement. 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 Colonoscopy was considered however patient was felt to not likely be able to tolerate the prep. In the ED, Hgb 5.9. Patient hemodynamically stable. CT abdomen/pelvis/angio: There is a large hematoma involving the medial aspect of the upper thigh measuring approximately 5.5 x 6.5 cm in axial dimension. Questionable heterogeneous density surrounding the right femur are concerning for second hematoma and measuring 5.7 x 5.5 cm in axial dimension. There is no evidence of active bleed. [facility] consulted: no surgery recommended. He was transfused 4 unit of packed RBC; hemoglobin improved to [address] scan of the thigh was done on 08/13; stable size of hematoma. Venous duplex of left arm done on 08/18 shows large complex left axillary fluid collection typical for hematoma. Keying Machine Operator consulted: Dr. Richey- recommend to gradually start Lovenox- 40mg daily, then BID, then 80mg BID. Patient tolerated 2 days of Lovenox 80 mg twice daily; anti-Xa level was obtained on August 16; level was found to be 0.45. Discussion with hematology done again. Recommended to increase Lovenox to 100 mg twice daily and repeat anti-Xa level again. Repeat anti-Xa level was 0.6 which is within therapeutic range. Discussed with hematology again. Recommended to continue same doses. On the request of patient's regarding work-up for anemia; GI was informed and patient was planned for colonoscopy as inpatient on 08/19. However, further discussion with the ; she did not want patient to undergo colonoscopy preparation as she feels he is not at his baseline functional status and wants to do as outpatient. (2) sacral decubitus ulcer, stage II Patient has sacral decubitus ulcer with dark eschar Wound care consulted. General surgery consulted for possible debridement; recommended trial of chemical debridement by wound care before considering surgical debridement. Wound care informed; we will follow-up on recommendation. (3) Elevated troponin: (4) CAD (coronary artery disease): Plan: Likely due to demand ischemia in the setting of profound anemia Continue beta-josé and statin. Plavix was also restarted. Troponin flat, 1100, 1300, 1000 EKG: No signs of acute ischemia or infarct Echo 45 to 45%, mild apical wall hypokinesis Cardiology service consulted-no further further interventions at this point Possible UTI Urine culture x 2: [place] discussed with Erica GIBBS given Dapto x 2 days and completed oral doxycycline course. Hagan cath in place in setting of sacral decubital ulcer. (5) Type 2 diabetes mellitus: Plan: Hgb A1c 5.2 06/2022 Lantus 8 units in AM NovoLog per protocol Monitor BSG's closely (6) History of CVA (cerebrovascular accident): Plan: History of recurrent CVA despite DAPT and anticoagulation therapy Chronic right hemiplegia/left arm paralysis/mostly nonverbal/expressive aphasia management of Lovenox + PLavix per above. Also on a statin. (7) H/O deep venous thrombosis: Plan: History of breakthrough DVT while on warfarin and Eliquis therapy, now on therapeutic dose Lovenox per above (8) HTN (hypertension): Plan: Currently on Coreg. Lisinopril presently on hold. (9) DVT prophylaxis: Plan: on Lovenox BID per above Disposition lives with at home. PT/OT ordered. Plan to discharge to rehab. plan of care discussed with patient's daily in detail and at length all questions/queries answered Admission and Anticipated Discharge Date Admission Date: August 09, 2022 Subjective Patient seen and examined at bedside. He appears to be lethargic; does not appear to be in distress. He opens his eyes to verbal stimuli. He remains hemodynamically stable; saturating well on room air. Review of Systems Review of Systems: All systems reviewed & are unremarkable except as noted in Subjective Physical Exam Physical Exam: General- not in distress, breathing with no effort or accessory muscle use Eyes- anicteric Neck- no JVD Lungs- clear breath sounds bilaterally, no rales/wheezes. Occasional crackles heard Heart- normal rate, regular rhythm; no murmurs Abdomen- normal bowel sounds, nondistended, soft, nontender Sacrum- Stage 2 pressure ulcer with dark eschar. Picture in images Extremities- LUE: moderate edema, tenderness present in dorsal aspect of upper arm. RLE: thigh- mild edema, fem cath in place- no signs of infection no pretibial edema, no calf tenderness Neuro- no new gross focal neurologic deficits Skin- warm & dry Results & Data Results & Data Vital Signs (Past 12 Hours) Vital Signs Temp Pulse Pulse Resp BP Pulse Ox O2 Del Method 08/20/22 12:20 36.9 C 75 18 114/73 95 Room Air 08/20/22 07:04 37 C 90 20 132/74 97 Room Air 08/20/22 07:28 92 H 20 92 Room Air 08/20/22 06:02 94 H 08/20/22 04:10 37.3 C 89 18 111/69 93 Room Air Laboratory Results Laboratory Results WBC 5.87 K/ul (4.8-10.8) 08/20/22 05:46 RBC 4.12 M/uL (4.70-6.10) L 08/20/22 05:46 Hgb 10.5 g/dl (14.0-18.0) L 08/20/22 05:46 Hct 34.6 % (42.0-52.0) L 08/20/22 05:46 MCV 84.0 fL (80.0-100.0) 08/20/22 05:46 MCH 25.5 pg (25.0-34.0) 08/20/22 05:46 MCHC 30.3 g/dL (32.0-36.0) L 08/20/22 05:46 RDW Std Deviation 63.8 fL (36.4-46.3) H 08/20/22 05:46 RDW Coeff of Caroline 21.1 % (11.5-14.5) H 08/20/22 05:46 Plt Count 325 K/uL (130-400) 08/20/22 05:46 MPV 10.6 fL (9.4-12.4) 08/20/22 05:46 Immature Gran % (Auto) 0.3 % 08/20/22 05:46 Neut % (Auto) 66.1 % 08/20/22 05:46 Lymph % (Auto) 26.4 % 08/20/22 05:46 Humphreys % (Auto) 5.5 % 08/20/22 05:46 Eos % (Auto) 1.0 % 08/20/22 05:46 Baso % (Auto) 0.7 % 08/20/22 05:46 Neut # (Auto) 3.88 K/uL (1.40-6.50) 08/20/22 05:46 Lymph # (Auto) 1.55 K/uL (1.2-3.4) 08/20/22 05:46 Humphreys # (Auto) 0.32 K/uL (0.11-0.59) 08/20/22 05:46 Eos # (Auto) 0.06 K/uL (0-0.50) 08/20/22 05:46 Baso # (Auto) 0.04 K/uL (0-0.2) 08/20/22 05:46 Immature Gran # (Auto) 0.02 K/uL (0.01-0.20) 08/20/22 05:46 Absolute Nucleated RBC Cancelled 08/17/22 07:00 Nucleated RBC % (auto) Cancelled 08/17/22 07:00 Neutrophils % (Manual) Cancelled 08/17/22 07:00 Band Neutrophils % Cancelled 08/17/22 07:00 Lymphocytes % (Manual) Cancelled 08/17/22 07:00 Prolymphocyte % Cancelled 08/17/22 07:00 Reactive Lymphs % (Man) Cancelled 08/17/22 07:00 Monocytes % (Manual) Cancelled 08/17/22 07:00 Eosinophils % (Manual) Cancelled 08/17/22 07:00 Basophils % (Manual) Cancelled 08/17/22 07:00 Metamyelocytes % (Man) Cancelled 08/17/22 07:00 Myelocytes % (Man) Cancelled 08/17/22 07:00 Promyelocytes % (Man) Cancelled 08/17/22 07:00 Blast Cells % (Manual) Cancelled 08/17/22 07:00 Plasma Cell % (Manual) Cancelled 08/17/22 07:00 Other Cells % Cancelled 08/17/22 07:00 Nucleated RBC % Cancelled 08/17/22 07:00 Neutrophils # (Manual) Cancelled 08/17/22 07:00 Band Neutrophils # Cancelled 08/17/22 07:00 Total Absolute Neuts Cancelled 08/17/22 07:00 Lymphocytes # (Manual) Cancelled 08/17/22 07:00 Prolymphocyte # Cancelled 08/17/22 07:00 Reactive Lymphs # Cancelled 08/17/22 07:00 Total Abs Lymphocytes Cancelled 08/17/22 07:00 Monocytes # (Manual) Cancelled 08/17/22 07:00 Eosinophils # (Manual) Cancelled 08/17/22 07:00 Basophils # (Manual) Cancelled 08/17/22 07:00 Metamyelocytes # (Man) Cancelled 08/17/22 07:00 Myelocytes # (Manual) Cancelled 08/17/22 07:00 Promyelocytes # (Man) Cancelled 08/17/22 07:00 Blast Cells # (Man) Cancelled 08/17/22 07:00 Plasma Cell # (Manual) Cancelled 08/17/22 07:00 Other Cells # Cancelled 08/17/22 07:00 Nucleated RBCs # (Man) Cancelled 08/17/22 07:00 Hypersegmented Neuts Cancelled 08/17/22 07:00 Hyposegmented Neuts Cancelled 08/17/22 07:00 Hypogranular Neuts Cancelled 08/17/22 07:00 Large Granular Lymphs Cancelled 08/17/22 07:00 # Lrg Granular Lymphs Cancelled 08/17/22 07:00 Hairy Cells Cancelled 08/17/22 07:00 Smudge Cells Cancelled 08/17/22 07:00 Toxic Granulation Cancelled 08/17/22 07:00 Toxic Vacuolation Cancelled 08/17/22 07:00 Dohle Bodies Cancelled 08/17/22 07:00 Esau Rods Cancelled 08/17/22 07:00 Platelet Estimate Cancelled 08/17/22 07:00 Hypogranular Platelets Cancelled 08/17/22 07:00 Giant Platelets Cancelled 08/17/22 07:00 Platelet Satelliting Cancelled 08/17/22 07:00 RBC Morphology Cancelled 08/17/22 07:00 Polychromasia 1+ 08/20/22 05:46 Hypochromasia Cancelled 08/17/22 07:00 Poikilocytosis Cancelled 08/17/22 07:00 Basophilic Stippling Cancelled 08/17/22 07:00 Anisocytosis Present 08/20/22 05:46 Microcytosis Cancelled 08/17/22 07:00 Macrocytosis Cancelled 08/17/22 07:00 Spherocytes 1+ 08/18/22 06:09 Pappenheimer Bodies Cancelled 08/17/22 07:00 Sickle Cells Cancelled 08/17/22 07:00 Target Cells Cancelled 08/17/22 07:00 Tear Drop Cells Cancelled 08/17/22 07:00 Ovalocytes Cancelled 08/17/22 07:00 Stomatocytes Cancelled 08/17/22 07:00 Webster-Tebbetts Bodies Cancelled 08/17/22 07:00 Echinocytes 1+ 08/20/22 05:46 Acanthocytes (Spur) Cancelled 08/17/22 07:00 Rouleaux Cancelled 08/17/22 07:00 RBC Agglutinates Cancelled 08/17/22 07:00 Schistocytes Cancelled 08/17/22 07:00 Sezary Cell Cancelled 08/17/22 07:00 PT 13.0 Seconds (9.0-12.0) H 08/09/22 15:05 INR 1.2 (0.9-1.1) H 08/09/22 15:05 APTT 33.1 Seconds (21.0-31.0) H 08/09/22 15:05 PTT Ratio 1.2 08/09/22 15:05 Heparin Anti-Xa, LM Wt 0.67 IU/ML (< 0.10) 08/19/22 04:01 Sodium TNP 08/20/22 05:46 Potassium TNP 08/20/22 05:46 Chloride 113 mmol/L (98-107) H 08/20/22 05:46 Carbon Dioxide 26 mmol/L (21-32) 08/20/22 05:46 Anion Gap TNP 08/20/22 05:46 BUN 21 mg/dl (6-23) 08/20/22 05:46 Creatinine 0.40 mg/dl (0.6-1.4) L 08/20/22 05:46 Est Cr Clr Drug Dosing 192.6 ml/min 08/20/22 05:46 Est GFR ( Amer) 145.5 ml/min 08/20/22 05:46 Est GFR (Non-Af Amer) 125.5 ml/min 08/20/22 05:46 BUN/Creatinine Ratio 52.5 (10-20) H 08/20/22 05:46 Glucose 147 mg/dl (70-99(Fasting)) H 08/20/22 05:46 POC Glucose 178 mg/dl (70-99) H 08/20/22 11:29 Lactate 1.5 mmol/L (0.4-2.0) 08/09/22 15:05 Calcium 7.8 mg/dl (8.5-10.1) L 08/20/22 05:46 Phosphorus 3.2 mg/dl (2.5-4.9) 08/10/22 07:31 Magnesium 1.5 mg/dl (1.7-2.4) L 08/15/22 06:16 Iron 34 mcg/dl (35-175) L 08/13/22 06:01 TIBC 184 mcg/dl (250-450) L 08/13/22 06:01 Unsaturated IBC 150 mcg/dl (155-355) L 08/13/22 06:01 Transferrin 161 mg/dl (200-360) L 08/10/22 12:50 Transferrin % Sat 18 % (20-50) L 08/13/22 06:01 Ferritin 256.6 ng/ml (8-388) 08/10/22 12:50 Total Bilirubin 0.6 mg/dl (0.2-1.0) 08/20/22 05:46 Direct Bilirubin 0.1 mg/dl (0-0.2) 08/09/22 15:05 AST TNP 08/20/22 05:46 ALT 5 U/L (7-52) L 08/20/22 05:46 Alkaline Phosphatase 139 U/L (34-104) H 08/20/22 05:46 Ammonia 25.0 umol/L (18-72) 08/09/22 15:05 Total Creatine Kinase 175 U/L (30-223) 08/09/22 15:05 Troponin I High Sens 1008.3 pg/ml (0-20) H* D 08/10/22 07:31 Total Protein 5.8 gm/dl (6.0-8.3) L 08/20/22 05:46 Albumin 2.6 gm/dl (3.4-5.0) L 08/20/22 05:46 Globulin 3.2 gm/dl (2.5-4.0) 08/20/22 05:46 Albumin/Globulin Ratio 0.8 (0.9-2) L 08/20/22 05:46 Vitamin B12 436 pg/ml (180-914) 08/10/22 12:50 Procalcitonin 0.05 ng/ml (0-0.5) 08/09/22 15:05 TSH 2.154 uIu/ml (0.300-4.500) 08/13/22 18:24 Urine Color [place] 08/11/22 00:41 Urine Appearance Clear (Clear) 08/11/22 00:41 Urine pH 5.5 (4.5-7.5) 08/11/22 00:41 Ur Specific [place] 1.040 (1.000-1.030) H 08/11/22 00:41 Urine Protein Trace (Negative) H 08/11/22 00:41 Urine Glucose (UA) Negative (Negative) 08/11/22 00:41 Urine Ketones Trace (Negative) H 08/11/22 00:41 Urine Blood Negative (Negative) 08/11/22 00:41 Urine Nitrite Positive (Negative) A 08/11/22 00:41 Urine Bilirubin Negative (Negative) 08/11/22 00:41 Urine Urobilinogen Negative (Negative) 08/11/22 00:41 Ur Leukocyte Esterase 2+ (Negative) H 08/11/22 00:41 Urine WBC (Auto) >30 /hpf (0-5) H 08/11/22 00:41 Urine RBC (Auto) 0-4 /hpf (0-4) 08/11/22 00:41 U Hyaline Cast (Auto) 1-5 /lpf (0-5) 08/11/22 00:41 U Epithel Cells (Auto) 0-5 /lpf (0-5) 08/11/22 00:41 Urine Bacteria (Auto) Negative (Negative) 08/11/22 00:41 Ur Renal Epithelial Cell Not Reportable 08/09/22 15:50 Urine Yeast Not Reportable 08/11/22 00:41 Stool Occult Bld Scrn Negative (Negative) 08/14/22 11:16 SARS-CoV-2 (PCR) NEGATIVE (Negative) 08/09/22 16:00 Influenza Type A (PCR) Negative (Neg) 08/09/22 16:00 Influenza Type B (PCR) Negative (Neg) 08/09/22 16:00 RSV (RT-PCR) Negative (Neg) 08/09/22 16:00 Blood Parasites ID Cancelled 08/17/22 07:00 Blood Type A Positive 08/09/22 15:09 Antibody Screen NEGATIVE 08/09/22 15:09 Crossmatch See Detail 08/09/22 15:[address] 08/09/22 12:34 CT SCAN OF THE BRAIN WITHOUT IV CONTRAST CLINICAL HISTORY: Lethargy. COMPARISON STUDY: CT of the brain dated 08/20/2021. TECHNIQUE: Unenhanced axial CT scan of the brain is performed from the vertex to the skull base. A dose lowering technique was utilized adhering to the principles of ALARA. CT DOSE: 614.27 mGy.cm FINDINGS: Brain parenchyma: There is age-advanced involutional change noting advanced confluent subcortical and periventricular microangiopathic disease. There is no hemorrhage, mass effect, or evidence of acute territorial ischemia by CT criteria. A small chronic infarct is noted in the high right parietal lobe. Rose-white matter differentiation is preserved. No extra-axial fluid collection is seen. Ventricles, sulci, cisterns: Prominent secondary to involutional change. Intracranial vasculature: There is atherosclerotic calcification of the cavernous carotid and vertebral arteries. Calvarium: Unremarkable. Sinuses and mastoids: The visualized paranasal sinuses are clear. The mastoid air cells are well pneumatized. Orbits: The bony orbits are grossly intact. IMPRESSION: There is no hemorrhage, mass effect, or evidence of acute territorial ischemia by CT criteria. ACT 112: Negative or not required by law. Electronically signed by: Donny Fernando M.D. 08/09/2022 3:38 PM Abdomen/Pelvis CT 08/10/22 00:22 CR Exam(s): CT ABDOMEN + PELVIS Without Contrast EXAM: CT Abdomen and Pelvis Without Intravenous Contrast CLINICAL HISTORY: Reason for exam: anemia. any bleeding?. TECHNIQUE: Axial computed tomography images of the abdomen and pelvis without intravenous contrast. CTDI is 16.7 mGy and DLP is 945.35 mGy-cm. Automated exposure control was utilized for the study. A dose lowering technique was utilized adhering to the principles of ALARA. COMPARISON: CT Abdomen Pelvis dated 03/18/2020 FINDINGS: Artifacts: Artifact in the upper abdomen from patient's arms. Lung bases: See below. Pleural space: Small bilateral pleural effusions greater on the left. Mild bibasilar atelectasis. Heart: Marked coronary artery calcifications. ABDOMEN: Liver: Unremarkable. Gallbladder and bile ducts: Unremarkable. No calcified stones. No ductal dilation. Pancreas: Unremarkable. No ductal dilation. Spleen: Unremarkable. No splenomegaly. Adrenals: Nodular adrenal glands, similar to the prior. Kidneys and ureters: Left renal low-density lesion better seen on the prior. No obstructing stones. No hydronephrosis. Stomach and bowel: Large amount of stool within distended rectum. No mucosal thickening. No bowel obstruction. PELVIS: Appendix: No findings to suggest acute appendicitis. Bladder: Bladder wall thickening of partially distended bladder. No stones. Reproductive: Unremarkable as visualized. ABDOMEN and PELVIS: Intraperitoneal space: See above. Bones/joints: Median sternotomy wires. Minimal sclerosis of the left inferior pubic ramus, new since the prior. Soft tissues: Enlarged right abductor musculature which appears hyperdense. Partially visualized on the inferior most images. Approximately 5 cm in transverse dimension. Dystrophic soft tissue calcifications/heterotopic ossification bilaterally in the musculature between the inferior pubic rami and proximal femurs. Chronic appearance although new since the prior study. Partially visualized. Anasarca. Soft tissue calcifications noted in the left forearm soft tissues, partially visualized. Vasculature: Marked diffuse atherosclerotic calcifications. Lymph nodes: Unremarkable. No enlarged lymph nodes. Tubes, lines and devices: Right this catheter with the tip in the right common iliac vein. IMPRESSION: 1. Enlarged right abductor musculature which appears hyperdense. Partially visualized on the inferior most images. Likely represents hematoma, approximately 5 cm in transverse dimension. Active bleeding or underlying lesion not excluded. 2. Large amount of stool within distended rectum. 3. Bladder wall thickening of partially distended bladder. May reflect cystitis or chronic bladder obstruction. 4. Dystrophic soft tissue calcifications/heterotopic ossification bilaterally in the musculature between the inferior pubic rami and proximal femurs. Chronic appearance although new since the prior study. Partially visualized. 5. Minimal sclerosis of the left inferior pubic ramus, new since the prior. Nonspecific. Correlate for infectious/inflammatory or neoplastic process. 6. Anasarca. 7. Small bilateral pleural effusions greater on the left. Mild bibasilar atelectasis. Communications: Verify Receipt Call Doctor Above results Electronically signed by: Thiago Wheeler M.D. 08/10/22 02:28 AM Lower Extremity CTA 08/10/22 02:42 Exam(s): CTA EXTREMITY RIGHT LOWER W/WO Contrast IV Amt: 105 ml optiray 320 EXAM: CT Angiography of the Right Lower Extremity With Intravenous Contrast CLINICAL HISTORY: Reason for exam: right thigh hematoma. active bleeding?. TECHNIQUE: Axial computed tomographic angiography images of the right lower extremity with intravenous contrast. CTDI is 49.29 mGy and DLP is 1250.2 mGy-cm. Automated exposure control was utilized for the study. A dose lowering technique was utilized adhering to the principles of ALARA. MIP reconstructed images were created and reviewed. CONTRAST: Patient received 105 ml optiray 320 of IV contrast COMPARISON: None. FINDINGS: VASCULATURE: Aorta: Severe calcified atherosclerotic disease tibioperoneal trunk. There is calcified atherosclerotic disease of aorta with no aneurysm. Right iliac arteries: Mild calcified atherosclerotic disease throughout the right external iliac artery with no significant stenosis. Right femoral/popliteal arteries: Scattered calcified atherosclerotic disease throughout the right superficial femoral artery, more severe distally. Cannot exclude areas of moderate to high-grade stenosis involving the distal superficial femoral artery. Severe atherosclerotic disease of the popliteal artery with areas of moderate to high-grade stenosis. Right calf/foot arteries: Severe disease through the right anterior tibial artery with multiple areas of high-grade stenosis in a short segment occlusions. Severe disease through the posterior tibial artery with multiple areas of high-grade stenosis and short segment occlusion. Distal reconstitution at the ankle noted. Moderate disease through the peroneal artery seen as a continuous vessel to the ankle. LOWER EXTREMITY: Bones/joints: There is a right-sided femoral line in place. Soft tissues: There is a large hematoma involving the medial aspect of the upper thigh measuring approximately 5.5 x 6.5 cm in axial dimension. Questionable heterogeneous density surrounding the right femur are concerning for second hematoma and measuring 5.7 x 5.5 cm in axial dimension. There is no evidence of active bleed. Bladder: Intrapelvic structures revealed borderline thickening of urinary bladder wall, cannot exclude cystitis. IMPRESSION: 1. Hematoma involving the medial and upper aspect of the right thigh and surrounding the mid cephalad femur. No evidence of active bleed. 2. Severe atherosclerotic disease involving the right lower extremity more significant through the distal superficial femoral and popliteal artery with areas of high-grade stenosis distally. 3. Severe disease through the trifurcation vessels with single vessel runoff through the peroneal artery. Multiple areas of high-grade stenosis or occlusions with the anterior tibial artery and posterior tibial artery as described. Electronically signed by: Merline Macias MD 08/10/22 05:[address] 08/10/22 09:47 CT forearm LT wo con, CT humerus LT wo con CLINICAL HISTORY: edema, r/o hematoma TECHNIQUE: Multidetector row helical CT of the left forearm and left humerus was performed without intravenous contrast. Coronal and sagittal reformations were obtained. Automated dose lowering techniques and/or adjustment according to patient size were utilized for this examination. Comparison: None available at the time of this dictation. FINDINGS: Heterotopic ossification is seen about the elbow. The joint spaces are maintained. No joint effusion is seen. Soft tissue edema is seen about the elbow and forearm without discrete drainable fluid collection. Atherosclerosis is noted. IMPRESSION: Soft tissue edema and heterotopic ossification. This may represent cellulitis, simple edema or contusion. No discrete fluid collection is seen. ACT 112: Negative or not required by law. Electronically signed by: Bradley Reeves M.D. 08/10/2022 11:[address] 08/10/22 09:47 CT forearm LT wo con, CT humerus LT wo con CLINICAL HISTORY: edema, r/o hematoma TECHNIQUE: Multidetector row helical CT of the left forearm and left humerus was performed without intravenous contrast. Coronal and sagittal reformations were obtained. Automated dose lowering techniques and/or adjustment according to patient size were utilized for this examination. Comparison: None available at the time of this dictation. FINDINGS: Heterotopic ossification is seen about the elbow. The joint spaces are maintained. No joint effusion is seen. Soft tissue edema is seen about the elbow and forearm without discrete drainable fluid collection. Atherosclerosis is noted. IMPRESSION: Soft tissue edema and heterotopic ossification. This may represent cellulitis, simple edema or contusion. No discrete fluid collection is seen. ACT 112: Negative or not required by law. Electronically signed by: Bradley Reeves M.D. 08/10/2022 11:42 AM Chest X-Ray 08/10/22 13:38 XR chest 1V portable CLINICAL HISTORY: r/o pneumonia,edema TECHNIQUE: Single frontal radiograph of the chest was obtained. Comparison: Comparison is made to chest radiograph 08/09/2022 FINDINGS: Median sternotomy wires are unchanged. Calcified aortic knob is seen. The lungs are clear. No evidence of pleural effusion or pneumothorax. IMPRESSION: No acute abnormalities and in particular no radiographic evidence of pneumonia. ACT 112: Negative or not required by law. Electronically signed by: Bradley Reeves M.D. 08/10/2022 3:[address] 08/13/22 07:35 CT femur RT wo con HISTORY: 62 years-old Male ff up hematoma follow-up study in a patient with reported right thigh hematoma COMPARISON: CTA right lower extremity 08/10/2022 TECHNIQUE: Multiple axial CT images of the right femur were obtained without the use of IV contrast. A dose lowering technique was used consistent with the principals of ALARA. FINDINGS: Decompressed urinary bladder with Hagan catheter. Prostamegaly. Moderate fecal retention of the rectum with mild nonspecific circumferential rectal wall thickening. Trace free fluid within the pelvis. Extensive vascular calcifications. Mild right inguinal lymphadenopathy with lymph nodes measuring up to 1.1 cm. Intramuscular hematomas are again noted throughout the right pelvis and thigh. Ill-defined intramuscular hemorrhage within the right adductor space measures up to approximately 8.6 x 5.5 cm, stable. Large area of hemorrhage within the proximal right upper thigh, located within the vastus intermedius measuring up to 6.8 x 6.4 x 17 cm has not significantly changed. Smaller hematoma within the vastus medialis is also similar in size. Moderate diffuse subcutaneous and deep tissue edema of the bladder and right upper extremity. 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 Demineralized appearance of the bones. There is no acute fracture, dislocation, osseous erosion or suspicious bone lesion identified. Moderate osteoarthritis of the hip and medial compartment right knee with mild patellofemoral and lateral compartment osteoarthritis. IMPRESSION: 1. Large intramuscular hematomas within the right adductor space and right quadriceps appear generally stable compared to the study from 08/10/2022. 2. No acute fracture or dislocation identified. 3. 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 4. Diffuse subcutaneous and deep tissue edema redemonstrated. ACT 112: Negative or not required by law. The above report was generated using voice recognition software. It may contain grammatical, syntax or spelling errors. Electronically signed by: Abdon Gr M.D. 08/13/2022 9:27 AM Extremity Venous Study 08/18/22 12:04 ULTRASOUND LEFT UPPER EXTREMITY VENOUS CLINICAL HISTORY: Left arm pain and swelling. COMPARISON STUDY: Left upper extremity venous ultrasound dated 06/03/2022. CT of the left humerus dated 08/10/2022. TECHNIQUE: Real-time, grayscale, and color Doppler sonography of the deep veins of the left upper extremity is performed. Compression and augmentation were utilized. FINDINGS: There is no sonographic evidence of deep venous thrombosis identified in the left upper extremity. The left internal jugular, axillary, and brachial veins are patent and normally compressible. Normal venous waveforms and augmentation are seen within the left subclavian vein. The cephalic and basilic veins are clear. The visualized radial and ulnar veins are patent. There is a large complex nonvascular fluid collection in the left axilla. This measures approximate 7 x 4 x 7 cm. Soft tissue edema seen in the left upper extremity. IMPRESSION: 1. There is no sonographic evidence of deep venous thrombosis identified in the left upper extremity. 2. There is a large complex left axillary fluid collection, which is typical for a hematoma. Clinical correlation will be required. ACT 112: Negative or not required by law. Electronically signed by: Donny Fernando M.D. 08/18/2022 2:27 PM (1) Anemia Anemia type: unspecified type Qualified Code(s): D64.9 - Anemia, unspecified
--- NOTE | 2022-08-20 14:32 | Surgery Progress Note ---
I saw this patient on rounds with the surgical PA. Will use the Santyl to help lift the eschar away to require less sharp debridement if any. This will be re- assessed on Tuesday. The more superior eschar appears very superficial and thin with spotty areas of visible underlying granulation healthy tissue within. The eschar that is at the 1:00 area to the anal opening on the gluteal fold appears to have one area that is not as superficial and will be targeted for possible debridement at bedside early next week. We will let you know if and when we need to have Lovenox held. Date of Service August 20, 2022 Assessment & Plan (1) Sacral wound: Plan: Patient here with sacral wound that has been deteriorating He is at a higher risk for surgical intervention given multiple medical issues in addition to being on plavix and lovenox Will continue to recommend chemical debridement with santyl through the wknd to necrotic areas of the wound plus local wound care per compressed yeast supervisor. Hopefully this will help soften the area's of eschar and may slough off on their own vs require superficial debridement at the bedside possibly next week Frequent repositioning and ensure patient on appropriate mattress [facility] covering wknd if questions/concerns and we will re evalaute patient on tuesday Admission and Anticipated Discharge Date Admission Date: August 09, 2022 Subjective Patient resting in bed. appears in no distress Physical Exam Gastrointestinal (Abdomen): sacral wound noted with multiple areas of superficial appearing eschar with some surrounding erythema. no obvious drainage Results & Data Vital Signs (Past 12 Hours) Vital Signs Temp Pulse Pulse Resp BP Pulse Ox O2 Del Method 08/20/22 12:20 36.9 C 75 18 114/73 95 Room Air 08/20/22 07:04 37 C 90 20 132/74 97 Room Air 08/20/22 07:28 92 H 20 92 Room Air 08/20/22 06:02 94 H 08/20/22 04:10 37.3 C 89 18 111/69 93 Room Air PG Care Time/CCT Total # of Minutes Spent Total Time Spent with Patient: Total time spent is greater than 50% in coordination of care (as documented) at patient's floor/unit and/or counseling patient: Coding Level of Care Code 09429 SUB INP/OBS CARE 125MIN Diagnoses Sacral wound S31.000A
[2022-08-20] MEDS: ATORVASTATIN 40 MG TAB PO SCH (20:55)
[2022-08-20] MEDS: TAMSULOSIN HCL 0.4 MG CAP PO SCH (20:55)
[2022-08-21] MEDS: ALBUT/IPRATROP 3MG/0.5MG NEB 3 ML VIAL NEB SCH ×2 (07:02→19:07)
[2022-08-21] MEDS: SODIUM CHLOR 7% 4 ML NEB NEB SCH ×2 (07:02→19:07)
[2022-08-21 07:06] LABS: Basophils # (auto) 0.05 K/uL (0-0.2); Basophils % (auto) 0.7 %; Eosinophils # (auto) 0.04 K/uL (0-0.50); Eosinophils % (auto) 0.5 %; Hematocrit (blood only) 34.6 % (42.0-52.0); Hemoglobin 10.5 g/dl (14.0-18.0); Immature Granulocytes # (auto) 0.03 K/uL (0.01-0.20); Immature Granulocytes % (auto) 0.4 %; Lymphocytes # (auto) 1.46 K/uL (1.2-3.4); Mean Corpuscular Hemoglobin 25.6 pg (25.0-34.0); Mean Corpuscular Hgb Conc 30.3 g/dL (32.0-36.0); Mean Corpuscular Volume 84.4 fL (80.0-100.0); Mean Platelet Volume 10.3 fL (9.4-12.4); Monocytes # (auto) 0.38 K/uL (0.11-0.59); Monocytes % (auto) 5.2 %; Neutrophils # (auto) 5.35 K/uL (1.40-6.50); Neutrophils % (auto) 73.2 %; Platelet Count 352 K/uL (130-400); RDW Coefficient of Variation 20.8 % (11.5-14.5); RDW Standard Deviation 63.7 fL (36.4-46.3); White Blood Count 7.31 K/ul (4.8-10.8)
[2022-08-21 07:30] LABS: Albumin Globulin Ratio 0.9 (0.9-2); Albumin Level 2.4 gm/dl (3.4-5.0); BUN Creatinine Ratio 51.3 (10-20); Bilirubin,Total 0.5 mg/dl (0.2-1.0); Calcium 7.7 mg/dl (8.5-10.1); Creatinine Clr Calc Pharmacy 197.6 ml/min; Est GFR (Non-African American) 126.8 ml/min; Globulin 2.8 gm/dl (2.5-4.0); Potassium 3.7 mmol/L (3.5-5.1); Total Protein 5.2 gm/dl (6.0-8.3)
[2022-08-21 07:44] LABS: Anisocytosis Present; Echinocytes 1+; Polychromasia 1+
[2022-08-21] MEDS: COLLAGENASE OINT 30 GM TUBE EXT SCH ×2 (08:42→21:09)
[2022-08-21] MEDS: CLOPIDOGREL BISULFATE 75 MG TAB PO SCH (08:43)
[2022-08-21] MEDS: PANTOprazole 40 MG TAB PO SCH ×2 (08:43→21:08)
[2022-08-21] MEDS: MAGNESIUM OXIDE 400 MG TAB PO SCH (08:43)
[2022-08-21] MEDS: carvediloL 12.5 MG TAB PO SCH ×2 (08:43→21:08)
[2022-08-21] MEDS: BACLOFEN 10 MG TAB PO SCH (08:43)
[2022-08-21] MEDS: FOLIC ACID 1 MG TAB PO SCH (08:43)
[2022-08-21] MEDS: LANTUS PER UNIT CHARGE SQ SCH (08:57)
[2022-08-21] MEDS: INSULIN ASPART PER UNIT CHARGE SC SCH ×4 (08:57→21:07)
--- NOTE | 2022-08-21 12:20 | Hospitalist Progress Note ---
Date of Service August 21, 2022 Assessment & Plan (1) Anemia: Plan: (1)Acute blood loss anemia, likely secondary to right thigh hematoma and left arm hematoma spontaneous, in the setting of Lovenox and Plavix use History of Recurrent DVT, and CVA Plan: Patient presenting from home with reported increased lethargy, taking Lovenox 120mg BID and Plavix As an outpatient, patient has been noted to have a downtrending hemoglobin (11.5 --> 8.0 --> 9.1 --> 8.9 on 07/27). Patient was started on iron replacement. 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 Colonoscopy was considered however patient was felt to not likely be able to tolerate the prep. In the ED, Hgb 5.9. Patient hemodynamically stable. CT abdomen/pelvis/angio: There is a large hematoma involving the medial aspect of the upper thigh measuring approximately 5.5 x 6.5 cm in axial dimension. Questionable heterogeneous density surrounding the right femur are concerning for second hematoma and measuring 5.7 x 5.5 cm in axial dimension. There is no evidence of active bleed. [facility] consulted: no surgery recommended. He was transfused 4 unit of packed RBC; hemoglobin improved to [address] scan of the thigh was done on 08/13; stable size of hematoma. Venous duplex of left arm done on 08/18 shows large complex left axillary fluid collection typical for hematoma. Software Program Manager consulted: Dr. Richey- recommend to gradually start Lovenox- 40mg daily, then BID, then 80mg BID. Patient tolerated 2 days of Lovenox 80 mg twice daily; anti-Xa level was obtained on August 16; level was found to be 0.45. Discussion with hematology done again. Recommended to increase Lovenox to 100 mg twice daily and repeat anti-Xa level again. Repeat anti-Xa level was 0.6 which is within therapeutic range. Discussed with hematology again. Recommended to continue same doses. On the request of patient's regarding work-up for anemia; GI was informed and patient was planned for colonoscopy as inpatient on 08/19. However, further discussion with the ; she did not want patient to undergo colonoscopy preparation as she feels he is not at his baseline functional status and wants to do as outpatient. (2) Sacral decubitus ulcer, stage II; POA Patient had sacral decubital ulcer which developed within 72 hours of hospitalization. Wound care consulted. General surgery consulted for possible debridement; recommended trial of chemical debridement by wound care before considering surgical debridement. Wound care commendation appreciated. (3) Elevated troponin: (4) CAD (coronary artery disease): Plan: Likely due to demand ischemia in the setting of profound anemia Continue beta-josé and statin. Plavix was also restarted. Troponin flat, 1100, 1300, 1000 EKG: No signs of acute ischemia or infarct Echo 45 to 45%, mild apical wall hypokinesis Cardiology service consulted-no further further interventions at this point Possible UTI Urine culture x 2: [place] discussed with Erica GIBBS given Dapto x 2 days and completed oral doxycycline course. Hagan cath in place in setting of sacral decubital ulcer. (5) Type 2 diabetes mellitus: Plan: Hgb A1c 5.2 06/2022 Lantus 8 units in AM NovoLog per protocol Monitor BSG's closely (6) History of CVA (cerebrovascular accident): Plan: History of recurrent CVA despite DAPT and anticoagulation therapy Chronic right hemiplegia/left arm paralysis/mostly nonverbal/expressive aphasia management of Lovenox + PLavix per above. Also on a statin. (7) H/O deep venous thrombosis: Plan: History of breakthrough DVT while on warfarin and Eliquis therapy, now on therapeutic dose Lovenox per above (8) HTN (hypertension): Plan: Currently on Coreg. Lisinopril presently on hold. (9) DVT prophylaxis: Plan: on Lovenox BID per above Disposition lives with at home. PT/OT ordered. Plan to discharge to rehab when placement available. Admission and Anticipated Discharge Date Admission Date: August 09, 2022 Subjective Patient seen and examined at bedside. He is sleepy but awake able; denies any pain or discomfort. Review of Systems Review of Systems: All systems reviewed & are unremarkable except as noted in Subjective Physical Exam Physical Exam: General- not in distress, breathing with no effort or accessory muscle use Eyes- anicteric Neck- no JVD Lungs- clear breath sounds bilaterally, no rales/wheezes. Occasional crackles heard Heart- normal rate, regular rhythm; no murmurs Abdomen- normal bowel sounds, nondistended, soft, nontender Sacrum- Stage 2 pressure ulcer with dark eschar. Picture in images Extremities- LUE: moderate edema, tenderness present in dorsal aspect of upper arm. RLE: thigh- mild edema, fem cath in place- no signs of infection no pretibial edema, no calf tenderness Neuro- no new gross focal neurologic deficits Skin- warm & dry Results & Data Results & Data Vital Signs (Past 12 Hours) Vital Signs Temp Pulse Pulse Pulse Resp BP Pulse Ox 08/21/22 11:30 36.5 C 91 H 18 127/76 96 08/21/22 08:32 36.7 C 91 H 18 134/75 96 08/21/22 06:01 93 H 08/21/22 07:02 80 26 H 93 08/21/22 03:15 37.7 C H 89 18 119/73 91 O2 Del Method 08/21/22 11:30 Room Air 08/21/22 08:32 Room Air 08/21/22 06:01 08/21/22 07:02 Room Air 08/21/22 03:15 Room Air Laboratory Results Laboratory Results WBC 7.31 K/ul (4.8-10.8) 08/21/22 05:58 RBC 4.10 M/uL (4.70-6.10) L 08/21/22 05:58 Hgb 10.5 g/dl (14.0-18.0) L 08/21/22 05:58 Hct 34.6 % (42.0-52.0) L 08/21/22 05:58 MCV 84.4 fL (80.0-100.0) 08/21/22 05:58 MCH 25.6 pg (25.0-34.0) 08/21/22 05:58 MCHC 30.3 g/dL (32.0-36.0) L 08/21/22 05:58 RDW Std Deviation 63.7 fL (36.4-46.3) H 08/21/22 05:58 RDW Coeff of Caroline 20.8 % (11.5-14.5) H 08/21/22 05:58 Plt Count 352 K/uL (130-400) 08/21/22 05:58 MPV 10.3 fL (9.4-12.4) 08/21/22 05:58 Immature Gran % (Auto) 0.4 % 08/21/22 05:58 Neut % (Auto) 73.2 % 08/21/22 05:58 Lymph % (Auto) 20.0 % 08/21/22 05:58 Mclean % (Auto) 5.2 % 08/21/22 05:58 Eos % (Auto) 0.5 % 08/21/22 05:58 Baso % (Auto) 0.7 % 08/21/22 05:58 Neut # (Auto) 5.35 K/uL (1.40-6.50) 08/21/22 05:58 Lymph # (Auto) 1.46 K/uL (1.2-3.4) 08/21/22 05:58 Mclean # (Auto) 0.38 K/uL (0.11-0.59) 08/21/22 05:58 Eos # (Auto) 0.04 K/uL (0-0.50) 08/21/22 05:58 Baso # (Auto) 0.05 K/uL (0-0.2) 08/21/22 05:58 Immature Gran # (Auto) 0.03 K/uL (0.01-0.20) 08/21/22 05:58 Absolute Nucleated RBC Cancelled 08/17/22 07:00 Nucleated RBC % (auto) Cancelled 08/17/22 07:00 Neutrophils % (Manual) Cancelled 08/17/22 07:00 Band Neutrophils % Cancelled 08/17/22 07:00 Lymphocytes % (Manual) Cancelled 08/17/22 07:00 Prolymphocyte % Cancelled 08/17/22 07:00 Reactive Lymphs % (Man) Cancelled 08/17/22 07:00 Monocytes % (Manual) Cancelled 08/17/22 07:00 Eosinophils % (Manual) Cancelled 08/17/22 07:00 Basophils % (Manual) Cancelled 08/17/22 07:00 Metamyelocytes % (Man) Cancelled 08/17/22 07:00 Myelocytes % (Man) Cancelled 08/17/22 07:00 Promyelocytes % (Man) Cancelled 08/17/22 07:00 Blast Cells % (Manual) Cancelled 08/17/22 07:00 Plasma Cell % (Manual) Cancelled 08/17/22 07:00 Other Cells % Cancelled 08/17/22 07:00 Nucleated RBC % Cancelled 08/17/22 07:00 Neutrophils # (Manual) Cancelled 08/17/22 07:00 Band Neutrophils # Cancelled 08/17/22 07:00 Total Absolute Neuts Cancelled 08/17/22 07:00 Lymphocytes # (Manual) Cancelled 08/17/22 07:00 Prolymphocyte # Cancelled 08/17/22 07:00 Reactive Lymphs # Cancelled 08/17/22 07:00 Total Abs Lymphocytes Cancelled 08/17/22 07:00 Monocytes # (Manual) Cancelled 08/17/22 07:00 Eosinophils # (Manual) Cancelled 08/17/22 07:00 Basophils # (Manual) Cancelled 08/17/22 07:00 Metamyelocytes # (Man) Cancelled 08/17/22 07:00 Myelocytes # (Manual) Cancelled 08/17/22 07:00 Promyelocytes # (Man) Cancelled 08/17/22 07:00 Blast Cells # (Man) Cancelled 08/17/22 07:00 Plasma Cell # (Manual) Cancelled 08/17/22 07:00 Other Cells # Cancelled 08/17/22 07:00 Nucleated RBCs # (Man) Cancelled 08/17/22 07:00 Hypersegmented Neuts Cancelled 08/17/22 07:00 Hyposegmented Neuts Cancelled 08/17/22 07:00 Hypogranular Neuts Cancelled 08/17/22 07:00 Large Granular Lymphs Cancelled 08/17/22 07:00 # Lrg Granular Lymphs Cancelled 08/17/22 07:00 Hairy Cells Cancelled 08/17/22 07:00 Smudge Cells Cancelled 08/17/22 07:00 Toxic Granulation Cancelled 08/17/22 07:00 Toxic Vacuolation Cancelled 08/17/22 07:00 Dohle Bodies Cancelled 08/17/22 07:00 Esau Rods Cancelled 08/17/22 07:00 Platelet Estimate Cancelled 08/17/22 07:00 Hypogranular Platelets Cancelled 08/17/22 07:00 Giant Platelets Cancelled 08/17/22 07:00 Platelet Satelliting Cancelled 08/17/22 07:00 RBC Morphology Cancelled 08/17/22 07:00 Polychromasia 1+ 03/18/23 05:58 Hypochromasia Cancelled 08/17/22 07:00 Poikilocytosis Cancelled 08/17/22 07:00 Basophilic Stippling Cancelled 08/17/22 07:00 Anisocytosis Present 08/21/22 05:58 Microcytosis Cancelled 08/17/22 07:00 Macrocytosis Cancelled 08/17/22 07:00 Spherocytes 1+ 08/18/22 06:09 Pappenheimer Bodies Cancelled 08/17/22 07:00 Sickle Cells Cancelled 08/17/22 07:00 Target Cells Cancelled 08/17/22 07:00 Tear Drop Cells Cancelled 08/17/22 07:00 Ovalocytes Cancelled 08/17/22 07:00 Stomatocytes Cancelled 08/17/22 07:00 Webster-Gilchrist Bodies Cancelled 08/17/22 07:00 Echinocytes 1+ 08/21/22 05:58 Acanthocytes (Spur) Cancelled 08/17/22 07:00 Rouleaux Cancelled 08/17/22 07:00 RBC Agglutinates Cancelled 08/17/22 07:00 Schistocytes Cancelled 08/17/22 07:00 Sezary Cell Cancelled 08/17/22 07:00 PT 13.0 Seconds (9.0-12.0) H 08/09/22 15:05 INR 1.2 (0.9-1.1) H 08/09/22 15:05 APTT 33.1 Seconds (21.0-31.0) H 08/09/22 15:05 PTT Ratio 1.2 08/09/22 15:05 Heparin Anti-Xa, LM Wt 0.67 IU/ML (< 0.10) 08/19/22 04:01 Sodium 143 mmol/L (136-145) 08/21/22 05:58 Potassium 3.7 mmol/L (3.5-5.1) 08/21/22 05:58 Chloride 112 mmol/L (98-107) H 08/21/22 05:58 Carbon Dioxide 27 mmol/L (21-32) 08/21/22 05:58 Anion Gap 4 (3-11) 08/21/22 05:58 BUN 20 mg/dl (6-23) 08/21/22 05:58 Creatinine 0.39 mg/dl (0.6-1.4) L 08/21/22 05:58 Est Cr Clr Drug Dosing 197.6 ml/min 08/21/22 05:58 Est GFR ( Amer) 147.0 ml/min 08/21/22 05:58 Est GFR (Non-Af Amer) 126.8 ml/min 08/21/22 05:58 BUN/Creatinine Ratio 51.3 (10-20) H 08/21/22 05:58 Glucose 138 mg/dl (70-99(Fasting)) H 08/21/22 05:58 POC Glucose 167 mg/dl (70-99) H 08/21/22 11:27 Lactate 1.5 mmol/L (0.4-2.0) 08/09/22 15:05 Calcium 7.7 mg/dl (8.5-10.1) L 08/21/22 05:58 Phosphorus 3.2 mg/dl (2.5-4.9) 08/10/22 07:31 Magnesium 1.5 mg/dl (1.7-2.4) L 08/15/22 06:16 Iron 34 mcg/dl (35-175) L 08/13/22 06:01 TIBC 184 mcg/dl (250-450) L 08/13/22 06:01 Unsaturated IBC 150 mcg/dl (155-355) L 08/13/22 06:01 Transferrin 161 mg/dl (200-360) L 08/10/22 12:50 Transferrin % Sat 18 % (20-50) L 08/13/22 06:01 Ferritin 256.6 ng/ml (8-388) 08/10/22 12:50 Total Bilirubin 0.5 mg/dl (0.2-1.0) 08/21/22 05:58 Direct Bilirubin 0.1 mg/dl (0-0.2) 08/09/22 15:05 AST 15 U/L (13-39) 08/21/22 05:58 ALT 8 U/L (7-52) 08/21/22 05:58 Alkaline Phosphatase 130 U/L (34-104) H 08/21/22 05:58 Ammonia 25.0 umol/L (18-72) 08/09/22 15:05 Total Creatine Kinase 175 U/L (30-223) 08/09/22 15:05 Troponin I High Sens 1008.3 pg/ml (0-20) H* D 08/10/22 07:31 Total Protein 5.2 gm/dl (6.0-8.3) L 08/21/22 05:58 Albumin 2.4 gm/dl (3.4-5.0) L 08/21/22 05:58 Globulin 2.8 gm/dl (2.5-4.0) 08/21/22 05:58 Albumin/Globulin Ratio 0.9 (0.9-2) 08/21/22 05:58 Vitamin B12 436 pg/ml (180-914) 08/10/22 12:50 Procalcitonin 0.05 ng/ml (0-0.5) 08/09/22 15:05 TSH 2.154 uIu/ml (0.300-4.500) 08/13/22 18:24 Urine Color [place] 08/11/22 00:41 Urine Appearance Clear (Clear) 08/11/22 00:41 Urine pH 5.5 (4.5-7.5) 08/11/22 00:41 Ur Specific [place] 1.040 (1.000-1.030) H 08/11/22 00:41 Urine Protein Trace (Negative) H 08/11/22 00:41 Urine Glucose (UA) Negative (Negative) 08/11/22 00:41 Urine Ketones Trace (Negative) H 08/11/22 00:41 Urine Blood Negative (Negative) 08/11/22 00:41 Urine Nitrite Positive (Negative) A 08/11/22 00:41 Urine Bilirubin Negative (Negative) 08/11/22 00:41 Urine Urobilinogen Negative (Negative) 08/11/22 00:41 Ur Leukocyte Esterase 2+ (Negative) H 08/11/22 00:41 Urine WBC (Auto) >30 /hpf (0-5) H 08/11/22 00:41 Urine RBC (Auto) 0-4 /hpf (0-4) 08/11/22 00:41 U Hyaline Cast (Auto) 1-5 /lpf (0-5) 08/11/22 00:41 U Epithel Cells (Auto) 0-5 /lpf (0-5) 08/11/22 00:41 Urine Bacteria (Auto) Negative (Negative) 08/11/22 00:41 Ur Renal Epithelial Cell Not Reportable 08/09/22 15:50 Urine Yeast Not Reportable 08/11/22 00:41 Stool Occult Bld Scrn Negative (Negative) 08/14/22 11:16 SARS-CoV-2 (PCR) NEGATIVE (Negative) 08/09/22 16:00 Influenza Type A (PCR) Negative (Neg) 08/09/22 16:00 Influenza Type B (PCR) Negative (Neg) 08/09/22 16:00 RSV (RT-PCR) Negative (Neg) 08/09/22 16:00 Blood Parasites ID Cancelled 08/17/22 07:00 Blood Type A Positive 08/09/22 15:09 Antibody Screen NEGATIVE 08/09/22 15:09 Crossmatch See Detail 08/09/22 15:[address] 08/09/22 12:34 CT SCAN OF THE BRAIN WITHOUT IV CONTRAST CLINICAL HISTORY: Lethargy. COMPARISON STUDY: CT of the brain dated 08/20/2021. TECHNIQUE: Unenhanced axial CT scan of the brain is performed from the vertex to the skull base. A dose lowering technique was utilized adhering to the principles of ALARA. CT DOSE: 614.27 mGy.cm FINDINGS: Brain parenchyma: There is age-advanced involutional change noting advanced confluent subcortical and periventricular microangiopathic disease. There is no hemorrhage, mass effect, or evidence of acute territorial ischemia by CT criteria. A small chronic infarct is noted in the high right parietal lobe. Rose-white matter differentiation is preserved. No extra-axial fluid collection is seen. Ventricles, sulci, cisterns: Prominent secondary to involutional change. Intracranial vasculature: There is atherosclerotic calcification of the cavernous carotid and vertebral arteries. Calvarium: Unremarkable. Sinuses and mastoids: The visualized paranasal sinuses are clear. The mastoid air cells are well pneumatized. Orbits: The bony orbits are grossly intact. IMPRESSION: There is no hemorrhage, mass effect, or evidence of acute territorial ischemia by CT criteria. ACT 112: Negative or not required by law. Electronically signed by: Donny Fernando M.D. 08/09/2022 3:38 PM Abdomen/Pelvis CT 08/10/22 00:22 CR Exam(s): CT ABDOMEN + PELVIS Without Contrast EXAM: CT Abdomen and Pelvis Without Intravenous Contrast CLINICAL HISTORY: Reason for exam: anemia. any bleeding?. TECHNIQUE: Axial computed tomography images of the abdomen and pelvis without intravenous contrast. CTDI is 16.7 mGy and DLP is 945.35 mGy-cm. Automated exposure control was utilized for the study. A dose lowering technique was utilized adhering to the principles of ALARA. COMPARISON: CT Abdomen Pelvis dated 03/18/2020 FINDINGS: Artifacts: Artifact in the upper abdomen from patient's arms. Lung bases: See below. Pleural space: Small bilateral pleural effusions greater on the left. Mild bibasilar atelectasis. Heart: Marked coronary artery calcifications. ABDOMEN: Liver: Unremarkable. Gallbladder and bile ducts: Unremarkable. No calcified stones. No ductal dilation. Pancreas: Unremarkable. No ductal dilation. Spleen: Unremarkable. No splenomegaly. Adrenals: Nodular adrenal glands, similar to the prior. Kidneys and ureters: Left renal low-density lesion better seen on the prior. No obstructing stones. No hydronephrosis. Stomach and bowel: Large amount of stool within distended rectum. No mucosal thickening. No bowel obstruction. PELVIS: Appendix: No findings to suggest acute appendicitis. Bladder: Bladder wall thickening of partially distended bladder. No stones. Reproductive: Unremarkable as visualized. ABDOMEN and PELVIS: Intraperitoneal space: See above. Bones/joints: Median sternotomy wires. Minimal sclerosis of the left inferior pubic ramus, new since the prior. Soft tissues: Enlarged right abductor musculature which appears hyperdense. Partially visualized on the inferior most images. Approximately 5 cm in transverse dimension. Dystrophic soft tissue calcifications/heterotopic ossification bilaterally in the musculature between the inferior pubic rami and proximal femurs. Chronic appearance although new since the prior study. Partially visualized. Anasarca. Soft tissue calcifications noted in the left forearm soft tissues, partially visualized. Vasculature: Marked diffuse atherosclerotic calcifications. Lymph nodes: Unremarkable. No enlarged lymph nodes. Tubes, lines and devices: Right this catheter with the tip in the right common iliac vein. IMPRESSION: 1. Enlarged right abductor musculature which appears hyperdense. Partially visualized on the inferior most images. Likely represents hematoma, approximately 5 cm in transverse dimension. Active bleeding or underlying lesion not excluded. 2. Large amount of stool within distended rectum. 3. Bladder wall thickening of partially distended bladder. May reflect cystitis or chronic bladder obstruction. 4. Dystrophic soft tissue calcifications/heterotopic ossification bilaterally in the musculature between the inferior pubic rami and proximal femurs. Chronic appearance although new since the prior study. Partially visualized. 5. Minimal sclerosis of the left inferior pubic ramus, new since the prior. Nonspecific. Correlate for infectious/inflammatory or neoplastic process. 6. Anasarca. 7. Small bilateral pleural effusions greater on the left. Mild bibasilar atelectasis. Communications: Verify Receipt Call Doctor Above results Electronically signed by: Thiago Wheeler M.D. 08/10/22 02:28 AM Lower Extremity CTA 08/10/22 02:42 Exam(s): CTA EXTREMITY RIGHT LOWER W/WO Contrast IV Amt: 105 ml optiray 320 EXAM: CT Angiography of the Right Lower Extremity With Intravenous Contrast CLINICAL HISTORY: Reason for exam: right thigh hematoma. active bleeding?. TECHNIQUE: Axial computed tomographic angiography images of the right lower extremity with intravenous contrast. CTDI is 49.29 mGy and DLP is 1250.2 mGy-cm. Automated exposure control was utilized for the study. A dose lowering technique was utilized adhering to the principles of ALARA. MIP reconstructed images were created and reviewed. CONTRAST: Patient received 105 ml optiray 320 of IV contrast COMPARISON: None. FINDINGS: VASCULATURE: Aorta: Severe calcified atherosclerotic disease tibioperoneal trunk. There is calcified atherosclerotic disease of aorta with no aneurysm. Right iliac arteries: Mild calcified atherosclerotic disease throughout the right external iliac artery with no significant stenosis. Right femoral/popliteal arteries: Scattered calcified atherosclerotic disease throughout the right superficial femoral artery, more severe distally. Cannot exclude areas of moderate to high-grade stenosis involving the distal superficial femoral artery. Severe atherosclerotic disease of the popliteal artery with areas of moderate to high-grade stenosis. Right calf/foot arteries: Severe disease through the right anterior tibial artery with multiple areas of high-grade stenosis in a short segment occlusions. Severe disease through the posterior tibial artery with multiple areas of high-grade stenosis and short segment occlusion. Distal reconstitution at the ankle noted. Moderate disease through the peroneal artery seen as a continuous vessel to the ankle. LOWER EXTREMITY: Bones/joints: There is a right-sided femoral line in place. Soft tissues: There is a large hematoma involving the medial aspect of the upper thigh measuring approximately 5.5 x 6.5 cm in axial dimension. Questionable heterogeneous density surrounding the right femur are concerning for second hematoma and measuring 5.7 x 5.5 cm in axial dimension. There is no evidence of active bleed. Bladder: Intrapelvic structures revealed borderline thickening of urinary bladder wall, cannot exclude cystitis. IMPRESSION: 1. Hematoma involving the medial and upper aspect of the right thigh and surrounding the mid cephalad femur. No evidence of active bleed. 2. Severe atherosclerotic disease involving the right lower extremity more significant through the distal superficial femoral and popliteal artery with areas of high-grade stenosis distally. 3. Severe disease through the trifurcation vessels with single vessel runoff through the peroneal artery. Multiple areas of high-grade stenosis or occlusions with the anterior tibial artery and posterior tibial artery as described. Electronically signed by: Merline Macias MD 08/10/22 05:[address] 08/10/22 09:47 CT forearm LT wo con, CT humerus LT wo con CLINICAL HISTORY: edema, r/o hematoma TECHNIQUE: Multidetector row helical CT of the left forearm and left humerus was performed without intravenous contrast. Coronal and sagittal reformations were obtained. Automated dose lowering techniques and/or adjustment according to patient size were utilized for this examination. Comparison: None available at the time of this dictation. FINDINGS: Heterotopic ossification is seen about the elbow. The joint spaces are maintained. No joint effusion is seen. Soft tissue edema is seen about the elbow and forearm without discrete drainable fluid collection. Atherosclerosis is noted. IMPRESSION: Soft tissue edema and heterotopic ossification. This may represent cellulitis, simple edema or contusion. No discrete fluid collection is seen. ACT 112: Negative or not required by law. Electronically signed by: Bradley Reeves M.D. 08/10/2022 11:[address] 08/10/22 09:47 CT forearm LT wo con, CT humerus LT wo con CLINICAL HISTORY: edema, r/o hematoma TECHNIQUE: Multidetector row helical CT of the left forearm and left humerus was performed without intravenous contrast. Coronal and sagittal reformations were obtained. Automated dose lowering techniques and/or adjustment according to patient size were utilized for this examination. Comparison: None available at the time of this dictation. FINDINGS: Heterotopic ossification is seen about the elbow. The joint spaces are maintained. No joint effusion is seen. Soft tissue edema is seen about the elbow and forearm without discrete drainable fluid collection. Atherosclerosis is noted. IMPRESSION: Soft tissue edema and heterotopic ossification. This may represent cellulitis, simple edema or contusion. No discrete fluid collection is seen. ACT 112: Negative or not required by law. Electronically signed by: Bradley Reeves M.D. 08/10/2022 11:42 AM Chest X-Ray 08/10/22 13:38 XR chest 1V portable CLINICAL HISTORY: r/o pneumonia,edema TECHNIQUE: Single frontal radiograph of the chest was obtained. Comparison: Comparison is made to chest radiograph 08/09/2022 FINDINGS: Median sternotomy wires are unchanged. Calcified aortic knob is seen. The lungs are clear. No evidence of pleural effusion or pneumothorax. IMPRESSION: No acute abnormalities and in particular no radiographic evidence of pneumonia. ACT 112: Negative or not required by law. Electronically signed by: Bradley Reeves M.D. 08/10/2022 3:[address] 08/13/22 07:35 CT femur RT wo con HISTORY: 62 years-old Male ff up hematoma follow-up study in a patient with reported right thigh hematoma COMPARISON: CTA right lower extremity 08/10/2022 TECHNIQUE: Multiple axial CT images of the right femur were obtained without the use of IV contrast. A dose lowering technique was used consistent with the principals of ALARA. FINDINGS: Decompressed urinary bladder with Hagan catheter. Prostamegaly. Moderate fecal retention of the rectum with mild nonspecific circumferential rectal wall thickening. Trace free fluid within the pelvis. Extensive vascular calcifications. Mild right inguinal lymphadenopathy with lymph nodes measuring up to 1.1 cm. Intramuscular hematomas are again noted throughout the right pelvis and thigh. Ill-defined intramuscular hemorrhage within the right adductor space measures up to approximately 8.6 x 5.5 cm, stable. Large area of hemorrhage within the proximal right upper thigh, located within the vastus intermedius measuring up to 6.8 x 6.4 x 17 cm has not significantly changed. Smaller hematoma within the vastus medialis is also similar in size. Moderate diffuse subcutaneous and deep tissue edema of the bladder and right upper extremity. 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 Demineralized appearance of the bones. There is no acute fracture, dislocation, osseous erosion or suspicious bone lesion identified. Moderate osteoarthritis of the hip and medial compartment right knee with mild patellofemoral and lateral compartment osteoarthritis. IMPRESSION: 1. Large intramuscular hematomas within the right adductor space and right quadriceps appear generally stable compared to the study from 08/10/2022. 2. No acute fracture or dislocation identified. 3. 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 4. Diffuse subcutaneous and deep tissue edema redemonstrated. ACT 112: Negative or not required by law. The above report was generated using voice recognition software. It may contain grammatical, syntax or spelling errors. Electronically signed by: Abdon Gr M.D. 08/13/2022 9:27 AM Extremity Venous Study 08/18/22 12:04 ULTRASOUND LEFT UPPER EXTREMITY VENOUS CLINICAL HISTORY: Left arm pain and swelling. COMPARISON STUDY: Left upper extremity venous ultrasound dated 06/03/2022. CT of the left humerus dated 08/10/2022. TECHNIQUE: Real-time, grayscale, and color Doppler sonography of the deep veins of the left upper extremity is performed. Compression and augmentation were ut ilized. FINDINGS: There is no sonographic evidence of deep venous thrombosis identified in the left upper extremity. The left internal jugular, axillary, and brachial veins are patent and normally compressible. Normal venous waveforms and augmentation are seen within the left subclavian vein. The cephalic and basilic veins are clear. The visualized radial and ulnar veins are patent. There is a l arge complex nonvascular fluid collection in the left axilla. This measures approximate 7 x 4 x 7 cm. Soft tissue edema seen in the left upper extremity. IMPRESSION: 1. There is no sonographic evidence of deep venous thrombosis identified in the left upper extremity. 2. There is a large complex left axillary fluid collection, which is typical for a hematoma. Clinical correlation will be required. ACT 112: Negative or not required by law. Electronically signed by: Donny Fernando M.D. 08/18/2022 2:27 PM (1) Anemia Anemia type: unspecified type Qualified Code(s): D64.9 - Anemia, unspecified
[2022-08-21] MEDS: ENOXAPARIN 100 MG/1ML SYR SQ SCH (12:22)
[2022-08-21] MEDS: ACETAMINOPHEN 325 MG TAB PO PRN (15:17)
[2022-08-21] MEDS: ATORVASTATIN 40 MG TAB PO SCH (21:07)
[2022-08-21] MEDS: TAMSULOSIN HCL 0.4 MG CAP PO SCH (21:08)
[2022-08-22] MEDS: ENOXAPARIN 100 MG/1ML SYR SQ SCH ×2 (01:31→12:29)
[2022-08-22 06:30] LABS: Basophils # (auto) 0.03 K/uL (0-0.2); Basophils % (auto) 0.4 %; Eosinophils # (auto) 0.05 K/uL (0-0.50); Eosinophils % (auto) 0.7 %; Hematocrit (blood only) 36.1 % (42.0-52.0); Immature Granulocytes # (auto) 0.01 K/uL (0.01-0.20); Immature Granulocytes % (auto) 0.1 %; Lymphocytes # (auto) 1.61 K/uL (1.2-3.4); Mean Corpuscular Hemoglobin 25.6 pg (25.0-34.0); Mean Corpuscular Hgb Conc 30.5 g/dL (32.0-36.0); Mean Corpuscular Volume 84.1 fL (80.0-100.0); Mean Platelet Volume 10.2 fL (9.4-12.4); Monocytes # (auto) 0.37 K/uL (0.11-0.59); Monocytes % (auto) 5.3 %; Neutrophils # (auto) 4.92 K/uL (1.40-6.50); Neutrophils % (auto) 70.5 %; Platelet Count 326 K/uL (130-400); RDW Coefficient of Variation 20.9 % (11.5-14.5); RDW Standard Deviation 63.8 fL (36.4-46.3); Red Blood Count 4.29 M/uL (4.70-6.10); White Blood Count 6.99 K/ul (4.8-10.8)
[2022-08-22 06:35] LABS: Albumin Globulin Ratio 0.9 (0.9-2); Albumin Level 2.5 gm/dl (3.4-5.0); BUN Creatinine Ratio 53.8 (10-20); Bilirubin,Total 0.5 mg/dl (0.2-1.0); Creatinine Clr Calc Pharmacy 188.6 ml/min; Est GFR (Non-African American) 126.8 ml/min; Globulin 2.9 gm/dl (2.5-4.0); Potassium 3.9 mmol/L (3.5-5.1); Total Protein 5.4 gm/dl (6.0-8.3)
[2022-08-22] MEDS: SODIUM CHLOR 7% 4 ML NEB NEB SCH ×2 (07:01→19:18)
[2022-08-22 07:02] LABS: RBC Morphology Unremarkable
[2022-08-22] MEDS: ALBUT/IPRATROP 3MG/0.5MG NEB 3 ML VIAL NEB SCH ×2 (07:16→19:18)
[2022-08-22] MEDS: CLOPIDOGREL BISULFATE 75 MG TAB PO SCH (08:39)
[2022-08-22] MEDS: carvediloL 12.5 MG TAB PO SCH ×2 (08:39→20:41)
[2022-08-22] MEDS: FOLIC ACID 1 MG TAB PO SCH (08:39)
[2022-08-22] MEDS: BACLOFEN 10 MG TAB PO SCH (08:39)
[2022-08-22] MEDS: PANTOprazole 40 MG TAB PO SCH ×2 (08:39→20:42)
[2022-08-22] MEDS: MAGNESIUM OXIDE 400 MG TAB PO SCH (08:39)
[2022-08-22] MEDS: COLLAGENASE OINT 30 GM TUBE EXT SCH ×2 (08:39→20:41)
[2022-08-22] MEDS: INSULIN ASPART PER UNIT CHARGE SC SCH ×4 (08:46→20:40)
[2022-08-22] MEDS: LANTUS PER UNIT CHARGE SQ SCH (08:47)
[2022-08-22] MEDS: cefTRIAXone SODIUM 2,000 MG in DEXTROSE 5% 50 ML IV SCH (10:37)
--- NOTE | 2022-08-22 10:38 | XRay Report ---
XR chest 1V portable HISTORY: Shortness of breath. Rule out pneumonia COMPARISON: Chest 08/10/2022. FINDINGS: No pneumothorax. No pleural effusions. The heart is mildly enlarged. There is progressive i nterstitial/vascular thickening consistent with mild pulmonary edema. The heart remains mildly enlarg ed. There are poststernotomy changes. There are low lung volumes. Heterotopic ossification again note d within the right shoulder/scapula. IMPRESSION: Developing mild interstitial pulmonary edema. ACT 112: Negative or not required by law. Electronically signed by: Chris Bowens M.D. 08/22/2022 10:36 AM
[2022-08-22] MEDS ORDERED: OPTIRAY 350 100ml IV ONE (11:18)
--- NOTE | 2022-08-22 11:41 | CT Scan Report ---
CT shoulder LT w con HISTORY: Rule out abscess formation in left axilla. ?Fever TECHNIQUE: Multiaxial CT images of the left shoulder were performed following the intravenous adminis tration of 95 cc of Optiray 350 and reformatted in the sagittal and coronal plane. COMPARISON STUDY: CT left humerus 08/10/2022. FINDINGS: No change in the subacute nondisplaced fracture within the left posterior glenoid. No new fracture or dislocation within the left shoulder. Partially visualized moderate left pleural effusion with left basilar airspace opacities. These may represent atelectasis or a pneumonia. The multiple loculated pe ripherally enhancing fluid collections within the left latissimus dorsi and left subscapularis muscle s which are similar in size compared to the prior study. Dominant collection within the left latissim us dorsi muscle on image 101 of 191 measures 5.5 x 5.1 cm. These loculated collections demonstrate ar eas of decreased in density compared to the prior study and therefore favor resolving/organizing intr amuscular hematomas. Superimposed infection would be impossible to exclude by imaging but is consider ed less likely given the lack of associated soft tissue gas. No new loculated fluid collections/hemat omas within the left shoulder. Heterotopic ossification is partially visualized within the left humer us. IMPRESSION: 1. There again noted multiple loculated peripheral enhancing fluid collections within the left latiss imus dorsi and left subscapularis muscles as described above. These are similar in size compared to t he prior study and demonstrate areas of decreasing density suggestive of resolving/organizing intramu scular hematomas. Secondary infection would be impossible to exclude by imaging but is considered les s likely given the lack of associated soft tissue gas. 2. No new loculated fluid collections/hematomas within the left shoulder. 3. No change in the subacute nondisplaced fracture within the left posterior glenoid. 4. Moderate left pleural effusion and left basilar airspace opacities have progressed. This may repre sent atelectasis or a pneumonia. ACT 112: Negative or not required by law. Electronically signed by: Chris Bowens M.D. 08/22/2022 11:36 AM
--- NOTE | 2022-08-22 13:04 | CT Scan Report ---
CT femur RT w con HISTORY: Rule out abscess formation in hematoma. Fever TECHNIQUE: Multiaxial CT images of the right femur were performed following the intravenous administr ation of 94 cc of Optiray 350. Sagittal and coronal reformations were also obtained. COMPARISON STUDY: Right femur CT 08/13/2022. FINDINGS: Diffuse subcutaneous edema noted within the right leg. There is a Hagan catheter within the bladder. Large amount of stool within the distal rectum which appears mildly thickened for the degre e of distention. This could represent a developing stercoral colitis. No acute fracture or dislocatio n within the right femur. Heterotopic ossification posterior to the proximal right femur again noted. There are multiloculated mixed density intramuscular collections within the right adductor, vastus i ntermedialis, and within the distal vastus medialis muscles. These are similar in size compared to th e prior study but demonstrate decreasing density suggestive of organizing hematomas. There is a lobul ar peripheral enhancement surrounding these collections within the abductor muscles and vastus interm edius muscle. This is nonspecific but could be due to active arterial extravasation or reactive le e from the posttraumatic change. Superimposed infection would be difficult to exclude but considered less likely given the lack of soft tissue gas within these collections. And advanced vascular calcifi cations are again noted. Dominant collection within the vastus intermedius muscle measures approximat corby 17 x 6 x 6 cm. IMPRESSION: 1. There again noted multiloculated mixed density intramuscular collections within the right thigh as described above. These are similar in size compared to the prior study but demonstrate decreasing de nsity suggestive of organizing hematomas. Secondary infection would be impossible to exclude by imagi ng but is considered less likely given the lack of soft tissue gas 2. Lobular peripheral enhancement within these collections which is indeterminate but could be due to active arterial extravasation or reactive change from the hematomas. Of note, this patient was injec blank twice with intravenous contrast for this study which likely accounts for the peripheral enhanceme nt. 3. Diffuse soft tissue edema within the right leg. 4. Mild thickening of the rectum which contains a large amount well-formed stool. This could represen t a developing stercoral colitis ACT 112: Negative or not required by law. Electronically signed by: Chris Bowens M.D. 08/22/2022 1:02 PM
[2022-08-22] MEDS ORDERED: MAGNESIUM HYDROXIDE SUSP 30 ML UDC PO ONE (13:18)
--- NOTE | 2022-08-22 13:51 | Hospitalist Progress Note ---
Date of Service August 22, 2022 Assessment & Plan (1) Anemia: Plan: (1)Acute blood loss anemia, likely secondary to right thigh hematoma and left arm hematoma spontaneous, in the setting of Lovenox and Plavix use History of Recurrent DVT, and CVA Plan: Patient presenting from home with reported increased lethargy, taking Lovenox 120mg BID and Plavix As an outpatient, patient has been noted to have a downtrending hemoglobin (11.5 --> 8.0 --> 9.1 --> 8.9 on 07/27). Patient was started on iron replacement. 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 Colonoscopy was considered however patient was felt to not likely be able to tolerate the prep. In the ED, Hgb 5.9. Patient hemodynamically stable. CT abdomen/pelvis/angio: There is a large hematoma involving the medial aspect of the upper thigh measuring approximately 5.5 x 6.5 cm in axial dimension. Questionable heterogeneous density surrounding the right femur are concerning for second hematoma and measuring 5.7 x 5.5 cm in axial dimension. There is no evidence of active bleed. [facility] consulted: no surgery recommended. He was transfused 4 unit of packed RBC; hemoglobin improved to [address] scan of the thigh was done on 08/13; stable size of hematoma. Venous duplex of left arm done on 08/18 shows large complex left axillary fluid collection typical for hematoma. Baby Formula Worker consulted: Dr. Richey- recommend to gradually start Lovenox- 40mg daily, then BID, then 80mg BID. Patient tolerated 2 days of Lovenox 80 mg twice daily; anti-Xa level was obtained on August 16; level was found to be 0.45. Discussion with hematology done again. Recommended to increase Lovenox to 100 mg twice daily and repeat anti-Xa level again. Repeat anti-Xa level was 0.6 which is within therapeutic range. Discussed with hematology again. Recommended to continue same doses. On the request of patient's regarding work-up for anemia; GI was informed and patient was planned for colonoscopy as inpatient on 08/19. However, further discussion with the ; she did not want patient to undergo colonoscopy preparation as she feels he is not at his baseline functional status and wants to do as outpatient. 2) Fever under evaluation Patient started to spike low-grade fever; 38.1 C Possible source of infection include pneumonia, sacral decubitus ulcer, UTI, infected hematoma Chest x-ray shows pulm congestion; no infiltrate. Pro-Checo negative CT of right leg and left shoulder done with contrast to rule out infected hematoma; less likely infection. CT shoulder shows moderate pleural effusion and left basilar airspace disease. Blood culture obtained We will place him on IV ceftriaxone as empiric coverage. (3) Sacral decubitus ulcer, stage II; POA Patient had sacral decubital ulcer which developed within 72 hours of hospitalization. Wound care consulted. General surgery consulted for possible debridement; recommended trial of chemical debridement by wound care before considering surgical debridement. Wound care commendation appreciated. (4) Elevated troponin: (5) CAD (coronary artery disease): Plan: Likely due to demand ischemia in the setting of profound anemia Continue beta-josé and statin. Plavix was also restarted. Troponin flat, 1100, 1300, 1000 EKG: No signs of acute ischemia or infarct Echo 45 to 45%, mild apical wall hypokinesis Cardiology service consulted-no further further interventions at this point Possible UTI Urine culture x 2: Coag Neg Staph discussed with Erica GIBBS given Dapto x 2 days and completed oral doxycycline course. Hagan cath in place in setting of sacral decubital ulcer. (6) Type 2 diabetes mellitus: Plan: Hgb A1c 5.2 06/2022 Lantus 8 units in AM NovoLog per protocol Monitor BSG's closely (7) History of CVA (cerebrovascular accident): Plan: History of recurrent CVA despite DAPT and anticoagulation therapy Chronic right hemiplegia/left arm paralysis/mostly nonverbal/expressive aphasia management of Lovenox + PLavix per above. Also on a statin. (8) H/O deep venous thrombosis: Plan: History of breakthrough DVT while on warfarin and Eliquis therapy, now on therapeutic dose Lovenox per above (9) HTN (hypertension): Plan: Currently on Coreg. Lisinopril presently on hold. (10) DVT prophylaxis: Plan: on Lovenox BID per above Disposition lives with at home. PT/OT ordered. Plan to discharge to rehab when placement available. Admission and Anticipated Discharge Date Admission Date: August 09, 2022 Subjective Patient seen and examined at bedside. He is lethargic but easily awake with voice. Not in any discomfort. Overnight, febrile to 38.1 C. Review of Systems Review of Systems: All systems reviewed & are unremarkable except as noted in Subjective Physical Exam Physical Exam: General- not in distress, breathing with no effort or accessory muscle use Eyes- anicteric Neck- no JVD Lungs- clear breath sounds bilaterally, no rales/wheezes. Occasional crackles heard Heart- normal rate, regular rhythm; no murmurs Abdomen- normal bowel sounds, nondistended, soft, nontender Sacrum- Stage 2 pressure ulcer with dark eschar. Picture in images Extremities- LUE: moderate edema, tenderness present in dorsal aspect of upper arm. RLE: thigh- mild edema, fem cath in place- no signs of infection no pretibial edema, no calf tenderness Neuro- no new gross focal neurologic deficits Skin- warm & dry Results & Data Results & Data Vital Signs (Past 12 Hours) Vital Signs Temp Pulse Pulse Resp BP Pulse Ox O2 Del Method 08/22/22 09:30 Room Air 08/22/22 11:21 37.2 C 78 16 126/74 96 Room Air 08/22/22 07:48 37.0 C 86 16 124/78 94 Room Air 08/22/22 05:55 86 08/22/22 07:01 84 18 94 Room Air 08/22/22 02:57 37.7 C H 84 16 129/76 94 Room Air Laboratory Results Laboratory Results WBC 6.99 K/ul (4.8-10.8) 08/22/22 05:43 RBC 4.29 M/uL (4.70-6.10) L 08/22/22 05:43 Hgb 11.0 g/dl (14.0-18.0) L 08/22/22 05:43 Hct 36.1 % (42.0-52.0) L 08/22/22 05:43 MCV 84.1 fL (80.0-100.0) 08/22/22 05:43 MCH 25.6 pg (25.0-34.0) 08/22/22 05:43 MCHC 30.5 g/dL (32.0-36.0) L 08/22/22 05:43 RDW Std Deviation 63.8 fL (36.4-46.3) H 08/22/22 05:43 RDW Coeff of Caroline 20.9 % (11.5-14.5) H 08/22/22 05:43 Plt Count 326 K/uL (130-400) 08/22/22 05:43 MPV 10.2 fL (9.4-12.4) 08/22/22 05:43 Immature Gran % (Auto) 0.1 % 08/22/22 05:43 Neut % (Auto) 70.5 % 08/22/22 05:43 Lymph % (Auto) 23.0 % 08/22/22 05:43 [place] % (Auto) 5.3 % 08/22/22 05:43 Eos % (Auto) 0.7 % 08/22/22 05:43 Baso % (Auto) 0.4 % 08/22/22 05:43 Neut # (Auto) 4.92 K/uL (1.40-6.50) 08/22/22 05:43 Lymph # (Auto) 1.61 K/uL (1.2-3.4) 08/22/22 05:43 [place] # (Auto) 0.37 K/uL (0.11-0.59) 08/22/22 05:43 Eos # (Auto) 0.05 K/uL (0-0.50) 08/22/22 05:43 Baso # (Auto) 0.03 K/uL (0-0.2) 08/22/22 05:43 Immature Gran # (Auto) 0.01 K/uL (0.01-0.20) 08/22/22 05:43 Absolute Nucleated RBC Cancelled 08/17/22 07:00 Nucleated RBC % (auto) Cancelled 08/17/22 07:00 Neutrophils % (Manual) Cancelled 08/17/22 07:00 Band Neutrophils % Cancelled 08/17/22 07:00 Lymphocytes % (Manual) Cancelled 08/17/22 07:00 Prolymphocyte % Cancelled 08/17/22 07:00 Reactive Lymphs % (Man) Cancelled 08/17/22 07:00 Monocytes % (Manual) Cancelled 08/17/22 07:00 Eosinophils % (Manual) Cancelled 08/17/22 07:00 Basophils % (Manual) Cancelled 08/17/22 07:00 Metamyelocytes % (Man) Cancelled 08/17/22 07:00 Myelocytes % (Man) Cancelled 08/17/22 07:00 Promyelocytes % (Man) Cancelled 08/17/22 07:00 Blast Cells % (Manual) Cancelled 08/17/22 07:00 Plasma Cell % (Manual) Cancelled 08/17/22 07:00 Other Cells % Cancelled 08/17/22 07:00 Nucleated RBC % Cancelled 08/17/22 07:00 Neutrophils # (Manual) Cancelled 08/17/22 07:00 Band Neutrophils # Cancelled 08/17/22 07:00 Total Absolute Neuts Cancelled 08/17/22 07:00 Lymphocytes # (Manual) Cancelled 08/17/22 07:00 Prolymphocyte # Cancelled 08/17/22 07:00 Reactive Lymphs # Cancelled 08/17/22 07:00 Total Abs Lymphocytes Cancelled 08/17/22 07:00 Monocytes # (Manual) Cancelled 08/17/22 07:00 Eosinophils # (Manual) Cancelled 08/17/22 07:00 Basophils # (Manual) Cancelled 08/17/22 07:00 Metamyelocytes # (Man) Cancelled 08/17/22 07:00 Myelocytes # (Manual) Cancelled 08/17/22 07:00 Promyelocytes # (Man) Cancelled 08/17/22 07:00 Blast Cells # (Man) Cancelled 08/17/22 07:00 Plasma Cell # (Manual) Cancelled 08/17/22 07:00 Other Cells # Cancelled 08/17/22 07:00 Nucleated RBCs # (Man) Cancelled 08/17/22 07:00 Hypersegmented Neuts Cancelled 08/17/22 07:00 Hyposegmented Neuts Cancelled 08/17/22 07:00 Hypogranular Neuts Cancelled 08/17/22 07:00 Large Granular Lymphs Cancelled 08/17/22 07:00 # Lrg Granular Lymphs Cancelled 08/17/22 07:00 Hairy Cells Cancelled 08/17/22 07:00 Smudge Cells Cancelled 08/17/22 07:00 Toxic Granulation Cancelled 08/17/22 07:00 Toxic Vacuolation Cancelled 08/17/22 07:00 Dohle Bodies Cancelled 08/17/22 07:00 Esau Rods Cancelled 08/17/22 07:00 Platelet Estimate Cancelled 08/17/22 07:00 Hypogranular Platelets Cancelled 08/17/22 07:00 Giant Platelets Cancelled 08/17/22 07:00 Platelet Satelliting Cancelled 08/17/22 07:00 RBC Morphology Unremarkable 08/22/22 05:43 Polychromasia 1+ 08/21/22 05:58 Hypochromasia Cancelled 08/17/22 07:00 Poikilocytosis Cancelled 08/17/22 07:00 Basophilic Stippling Cancelled 08/17/22 07:00 Anisocytosis Present 08/21/22 05:58 Microcytosis Cancelled 08/17/22 07:00 Macrocytosis Cancelled 08/17/22 07:00 Spherocytes 1+ 08/18/22 06:09 Pappenheimer Bodies Cancelled 08/17/22 07:00 Sickle Cells Cancelled 08/17/22 07:00 Target Cells Cancelled 08/17/22 07:00 Tear Drop Cells Cancelled 08/17/22 07:00 Ovalocytes Cancelled 08/17/22 07:00 Stomatocytes Cancelled 08/17/22 07:00 [place] Bodies Cancelled 08/17/22 07:00 Echinocytes 1+ 08/21/22 05:58 Acanthocytes (Spur) Cancelled 08/17/22 07:00 Rouleaux Cancelled 08/17/22 07:00 RBC Agglutinates Cancelled 08/17/22 07:00 Schistocytes Cancelled 08/17/22 07:00 Sezary Cell Cancelled 08/17/22 07:00 PT 13.0 Seconds (9.0-12.0) H 08/09/22 15:05 INR 1.2 (0.9-1.1) H 08/09/22 15:05 APTT 33.1 Seconds (21.0-31.0) H 08/09/22 15:05 PTT Ratio 1.2 08/09/22 15:05 Heparin Anti-Xa, LM Wt 0.67 IU/ML (< 0.10) 08/19/22 04:01 Sodium 142 mmol/L (136-145) 08/22/22 05:43 Potassium 3.9 mmol/L (3.5-5.1) 08/22/22 05:43 Chloride 112 mmol/L (98-107) H 08/22/22 05:43 Carbon Dioxide 26 mmol/L (21-32) 08/22/22 05:43 Anion Gap 4 (3-11) 08/22/22 05:43 BUN 21 mg/dl (6-23) 08/22/22 05:43 Creatinine 0.39 mg/dl (0.6-1.4) L 08/22/22 05:43 Est Cr Clr Drug Dosing 188.6 ml/min 08/22/22 05:43 Est GFR ( Amer) 147.0 ml/min 08/22/22 05:43 Est GFR (Non-Af Amer) 126.8 ml/min 08/22/22 05:43 BUN/Creatinine Ratio 53.8 (10-20) H 08/22/22 05:43 Glucose 148 mg/dl (70-99(Fasting)) H 08/22/22 05:43 POC Glucose 174 mg/dl (70-99) H 08/22/22 11:01 Lactate 1.5 mmol/L (0.4-2.0) 08/09/22 15:05 Calcium 8.0 mg/dl (8.5-10.1) L 08/22/22 05:43 Phosphorus 3.2 mg/dl (2.5-4.9) 08/10/22 07:31 Magnesium 1.5 mg/dl (1.7-2.4) L 08/15/22 06:16 Iron 34 mcg/dl (35-175) L 08/13/22 06:01 TIBC 184 mcg/dl (250-450) L 08/13/22 06:01 Unsaturated IBC 150 mcg/dl (155-355) L 08/13/22 06:01 Transferrin 161 mg/dl (200-360) L 08/10/22 12:50 Transferrin % Sat 18 % (20-50) L 08/13/22 06:01 Ferritin 256.6 ng/ml (8-388) 08/10/22 12:50 Total Bilirubin 0.5 mg/dl (0.2-1.0) 08/22/22 05:43 Direct Bilirubin 0.1 mg/dl (0-0.2) 08/09/22 15:05 AST 8 U/L (13-39) L 08/22/22 05:43 ALT 6 U/L (7-52) L 08/22/22 05:43 Alkaline Phosphatase 117 U/L (34-104) H 08/22/22 05:43 Ammonia 25.0 umol/L (18-72) 08/09/22 15:05 Total Creatine Kinase 175 U/L (30-223) 08/09/22 15:05 Troponin I High Sens 1008.3 pg/ml (0-20) H* D 08/10/22 07:31 Total Protein 5.4 gm/dl (6.0-8.3) L 08/22/22 05:43 Albumin 2.5 gm/dl (3.4-5.0) L 08/22/22 05:43 Globulin 2.9 gm/dl (2.5-4.0) 08/22/22 05:43 Albumin/Globulin Ratio 0.9 (0.9-2) 08/22/22 05:43 Vitamin B12 436 pg/ml (180-914) 08/10/22 12:50 Procalcitonin 0.05 ng/ml (0-0.5) 08/22/22 09:49 TSH 2.154 uIu/ml (0.300-4.500) 08/13/22 18:24 Urine Color [place] 08/11/22 00:41 Urine Appearance Clear (Clear) 08/11/22 00:41 Urine pH 5.5 (4.5-7.5) 08/11/22 00:41 Ur Specific [place] 1.040 (1.000-1.030) H 08/11/22 00:41 Urine Protein Trace (Negative) H 08/11/22 00:41 Urine Glucose (UA) Negative (Negative) 08/11/22 00:41 Urine Ketones Trace (Negative) H 08/11/22 00:41 Urine Blood Negative (Negative) 08/11/22 00:41 Urine Nitrite Positive (Negative) A 08/11/22 00:41 Urine Bilirubin Negative (Negative) 08/11/22 00:41 Urine Urobilinogen Negative (Negative) 08/11/22 00:41 Ur Leukocyte Esterase 2+ (Negative) H 08/11/22 00:41 Urine WBC (Auto) >30 /hpf (0-5) H 08/11/22 00:41 Urine RBC (Auto) 0-4 /hpf (0-4) 08/11/22 00:41 U Hyaline Cast (Auto) 1-5 /lpf (0-5) 08/11/22 00:41 U Epithel Cells (Auto) 0-5 /lpf (0-5) 08/11/22 00:41 Urine Bacteria (Auto) Negative (Negative) 08/11/22 00:41 Ur Renal Epithelial Cell Not Reportable 08/09/22 15:50 Urine Yeast Not Reportable 08/11/22 00:41 Stool Occult Bld Scrn Negative (Negative) 08/14/22 11:16 SARS-CoV-2 (PCR) NEGATIVE (Negative) 08/09/22 16:00 Influenza Type A (PCR) Negative (Neg) 08/09/22 16:00 Influenza Type B (PCR) Negative (Neg) 08/09/22 16:00 RSV (RT-PCR) Negative (Neg) 08/09/22 16:00 Blood Parasites ID Cancelled 08/17/22 07:00 Blood Type A Positive 08/09/22 15:09 Antibody Screen NEGATIVE 08/09/22 15:09 Crossmatch See Detail 08/09/22 15:[address] 08/09/22 12:34 CT SCAN OF THE BRAIN WITHOUT IV CONTRAST CLINICAL HISTORY: Lethargy. COMPARISON STUDY: CT of the brain dated 08/20/2021. TECHNIQUE: Unenhanced axial CT scan of the brain is performed from the vertex to the skull base. A dose lowering technique was utilized adhering to the principles of ALARA. CT DOSE: 614.27 mGy.cm FINDINGS: Brain parenchyma: There is age-advanced involutional change noting advanced confluent subcortical and periventricular microangiopathic disease. There is no hemorrhage, mass effect, or evidence of acute territorial ischemia by CT criteria. A small chronic infarct is noted in the high right parietal lobe. Rose-white matter differentiation is preserved. No extra-axial fluid collection is seen. Ventricles, sulci, cisterns: Prominent secondary to involutional change. Intracranial vasculature: There is atherosclerotic calcification of the cavernous carotid and vertebral arteries. Calvarium: Unremarkable. Sinuses and mastoids: The visualized paranasal sinuses are clear. The mastoid air cells are well pneumatized. Orbits: The bony orbits are grossly intact. IMPRESSION: There is no hemorrhage, mass effect, or evidence of acute territorial ischemia by CT criteria. ACT 112: Negative or not required by law. Electronically signed by: Donny Fernando M.D. 08/09/2022 3:38 PM Abdomen/Pelvis CT 08/10/22 00:22 CR Exam(s): CT ABDOMEN + PELVIS Without Contrast EXAM: CT Abdomen and Pelvis Without Intravenous Contrast CLINICAL HISTORY: Reason for exam: anemia. any bleeding?. TECHNIQUE: Axial computed tomography images of the abdomen and pelvis without intravenous contrast. CTDI is 16.7 mGy and DLP is 945.35 mGy-cm. Automated exposure control was utilized for the study. A dose lowering technique was utilized adhering to the principles of ALARA. COMPARISON: CT Abdomen Pelvis dated 03/18/2020 FINDINGS: Artifacts: Artifact in the upper abdomen from patient's arms. Lung bases: See below. Pleural space: Small bilateral pleural effusions greater on the left. Mild bibasilar atelectasis. Heart: Marked coronary artery calcifications. ABDOMEN: Liver: Unremarkable. Gallbladder and bile ducts: Unremarkable. No calcified stones. No ductal dilation. Pancreas: Unremarkable. No ductal dilation. Spleen: Unremarkable. No splenomegaly. Adrenals: Nodular adrenal glands, similar to the prior. Kidneys and ureters: Left renal low-density lesion better seen on the prior. No obstructing stones. No hydronephrosis. Stomach and bowel: Large amount of stool within distended rectum. No mucosal thickening. No bowel obstruction. PELVIS: Appendix: No findings to suggest acute appendicitis. Bladder: Bladder wall thickening of partially distended bladder. No stones. Reproductive: Unremarkable as visualized. ABDOMEN and PELVIS: Intraperitoneal space: See above. Bones/joints: Median sternotomy wires. Minimal sclerosis of the left inferior pubic ramus, new since the prior. Soft tissues: Enlarged right abductor musculature which appears hyperdense. Partially visualized on the inferior most images. Approximately 5 cm in transverse dimension. Dystrophic soft tissue calcifications/heterotopic ossification bilaterally in the musculature between the inferior pubic rami and proximal femurs. Chronic appearance although new since the prior study. Partially visualized. Anasarca. Soft tissue calcifications noted in the left forearm soft tissues, partially visualized. Vasculature: Marked diffuse atherosclerotic calcifications. Lymph nodes: Unremarkable. No enlarged lymph nodes. Tubes, lines and devices: Right this catheter with the tip in the right common iliac vein. IMPRESSION: 1. Enlarged right abductor musculature which appears hyperdense. Partially visualized on the inferior most images. Likely represents hematoma, approximately 5 cm in transverse dimension. Active bleeding or underlying lesion not excluded. 2. Large amount of stool within distended rectum. 3. Bladder wall thickening of partially distended bladder. May reflect cystitis or chronic bladder obstruction. 4. Dystrophic soft tissue calcifications/heterotopic ossification bilaterally in the musculature between the inferior pubic rami and proximal femurs. Chronic appearance although new since the prior study. Partially visualized. 5. Minimal sclerosis of the left inferior pubic ramus, new since the prior. Nonspecific. Correlate for infectious/inflammatory or neoplastic process. 6. Anasarca. 7. Small bilateral pleural effusions greater on the left. Mild bibasilar atelectasis. Communications: Verify Receipt Call Doctor Above results Electronically signed by: Thiago Wheeler M.D. 08/10/22 02:28 AM Lower Extremity CTA 08/10/22 02:42 Exam(s): CTA EXTREMITY RIGHT LOWER W/WO Contrast IV Amt: 105 ml optiray 320 EXAM: CT Angiography of the Right Lower Extremity With Intravenous Contrast CLINICAL HISTORY: Reason for exam: right thigh hematoma. active bleeding?. TECHNIQUE: Axial computed tomographic angiography images of the right lower extremity with intravenous contrast. CTDI is 49.29 mGy and DLP is 1250.2 mGy-cm. Automated exposure control was utilized for the study. A dose lowering technique was utilized adhering to the principles of ALARA. MIP reconstructed images were created and reviewed. CONTRAST: Patient received 105 ml optiray 320 of IV contrast COMPARISON: None. FINDINGS: VASCULATURE: Aorta: Severe calcified atherosclerotic disease tibioperoneal trunk. There is calcified atherosclerotic disease of aorta with no aneurysm. Right iliac arteries: Mild calcified atherosclerotic disease throughout the right external iliac artery with no significant stenosis. Right femoral/popliteal arteries: Scattered calcified atherosclerotic disease throughout the right superficial femoral artery, more severe distally. Cannot exclude areas of moderate to high-grade stenosis involving the distal superficial femoral artery. Severe atherosclerotic disease of the popliteal artery with areas of moderate to high-grade stenosis. Right calf/foot arteries: Severe disease through the right anterior tibial artery with multiple areas of high-grade stenosis in a short segment occlusions. Severe disease through the posterior tibial artery with multiple areas of high-grade stenosis and short segment occlusion. Distal reconstitution at the ankle noted. Moderate disease through the peroneal artery seen as a continuous vessel to the ankle. LOWER EXTREMITY: Bones/joints: There is a right-sided femoral line in place. Soft tissues: There is a large hematoma involving the medial aspect of the upper thigh measuring approximately 5.5 x 6.5 cm in axial dimension. Questionable heterogeneous density surrounding the right femur are concerning for second hematoma and measuring 5.7 x 5.5 cm in axial dimension. There is no evidence of active bleed. Bladder: Intrapelvic structures revealed borderline thickening of urinary bladder wall, cannot exclude cystitis. IMPRESSION: 1. Hematoma involving the medial and upper aspect of the right thigh and surrounding the mid cephalad femur. No evidence of active bleed. 2. Severe atherosclerotic disease involving the right lower extremity more significant through the distal superficial femoral and popliteal artery with areas of high-grade stenosis distally. 3. Severe disease through the trifurcation vessels with single vessel runoff through the peroneal artery. Multiple areas of high-grade stenosis or occlusions with the anterior tibial artery and posterior tibial artery as described. Electronically signed by: Merline Macias MD 08/10/22 05:[address] 08/10/22 09:47 CT forearm LT wo con, CT humerus LT wo con CLINICAL HISTORY: edema, r/o hematoma TECHNIQUE: Multidetector row helical CT of the left forearm and left humerus was performed without intravenous contrast. Coronal and sagittal reformations were obtained. Automated dose lowering techniques and/or adjustment according to patient size were utilized for this examination. Comparison: None available at the time of this dictation. FINDINGS: Heterotopic ossification is seen about the elbow. The joint spaces are maintained. No joint effusion is seen. Soft tissue edema is seen about the elbow and forearm without discrete drainable fluid collection. Atherosclerosis is noted. IMPRESSION: Soft tissue edema and heterotopic ossification. This may represent cellulitis, simple edema or contusion. No discrete fluid collection is seen. ACT 112: Negative or not required by law. Electronically signed by: Bradley Reeves M.D. 08/10/2022 11:[address] 08/10/22 09:47 CT forearm LT wo con, CT humerus LT wo con CLINICAL HISTORY: edema, r/o hematoma TECHNIQUE: Multidetector row helical CT of the left forearm and left humerus was performed without intravenous contrast. Coronal and sagittal reformations were obtained. Automated dose lowering techniques and/or adjustment according to patient size were utilized for this examination. Comparison: None available at the time of this dictation. FINDINGS: Heterotopic ossification is seen about the elbow. The joint spaces are maintained. No joint effusion is seen. Soft tissue edema is seen about the elbow and forearm without discrete drainable fluid collection. Atherosclerosis is noted. IMPRESSION: Soft tissue edema and heterotopic ossification. This may represent cellulitis, simple edema or contusion. No discrete fluid collection is seen. ACT 112: Negative or not required by law. Electronically signed by: Bradley Reeves M.D. 08/10/2022 11:42 AM Extremity Venous Study 08/18/22 12:04 ULTRASOUND LEFT UPPER EXTREMITY VENOUS CLINICAL HISTORY: Left arm pain and swelling. COMPARISON STUDY: Left upper extremity venous ultrasound dated 06/03/2022. CT of the left humerus dated 08/10/2022. TECHNIQUE: Real-time, grayscale, and color Doppler sonography of the deep veins of the left upper extremity is performed. Compression and augmentation were utilized. FINDINGS: There is no sonographic evidence of deep venous thrombosis identified in the left upper extremity. The left internal jugular, axillary, and brachial veins are patent and normally compressible. Normal venous waveforms and augmentation are seen within the left subclavian vein. The cephalic and basilic veins are clear. The visualized radial and ulnar veins are patent. There is a large complex nonvascular fluid collection in the left axilla. This measures approximate 7 x 4 x 7 cm. Soft tissue edema seen in the left upper extremity. IMPRESSION: 1. There is no sonographic evidence of deep venous thrombosis identified in the left upper extremity. 2. There is a large complex left axillary fluid collection, which is typical for a hematoma. Clinical correlation will be required. ACT 112: Negative or not required by law. Electronically signed by: Donny Fernando M.D. 08/18/2022 2:27 PM Chest X-Ray 08/22/22 09:32 XR chest 1V portable HISTORY: Shortness of breath. Rule out pneumonia COMPARISON: Chest 08/10/2022. FINDINGS: No pneumothorax. No pleural effusions. The heart is mildly enlarged. There is progressive interstitial/vascular thickening consistent with mild pulmonary edema. The heart remains mildly enlarged. There are poststernotomy changes. There are low lung volumes. Heterotopic ossification again noted within the right shoulder/scapula. IMPRESSION: Developing mild interstitial pulmonary edema. ACT 112: Negative or not required by law. Electronically signed by: Chris Bowens M.D. 08/22/2022 10:[address] 08/22/22 09:36 CT femur RT w con HISTORY: Rule out abscess formation in hematoma. Fever TECHNIQUE: Multiaxial CT images of the right femur were performed following the intravenous administration of 94 cc of Optiray 350. Sagittal and coronal reformations were also obtained. COMPARISON STUDY: Right femur CT 08/13/2022. FINDINGS: Diffuse subcutaneous edema noted within the right leg. There is a Hagan catheter within the bladder. Large amount of stool within the distal rectum which appears mildly thickened for the degree of distention. This could represent a developing stercoral colitis. No acute fracture or dislocation within the right femur. Heterotopic ossification posterior to the proximal right femur again noted. There are multiloculated mixed density intramuscular collections within the right adductor, vastus intermedialis, and within the distal vastus medialis muscles. These are similar in size compared to the prior study but demonstrate decreasing density suggestive of organizing hematomas. There is a lobular peripheral enhancement surrounding these collections within the abductor muscles and vastus intermedius muscle. This is nonspecific but could be due to active arterial extravasation or reactive change from the posttraumatic change. Superimposed infection would be difficult to exclude but considered less likely given the lack of soft tissue gas within these collections. And advanced vascular calcifications are again noted. Dominant collection within the vastus intermedius muscle measures approximately 17 x 6 x 6 cm. IMPRESSION: 1. There again noted multiloculated mixed density intramuscular collections within the right thigh as described above. These are similar in size compared to the prior study but demonstrate decreasing density suggestive of organizing hematomas. Secondary infection would be impossible to exclude by imaging but is considered less likely given the lack of soft tissue gas 2. Lobular peripheral enhancement within these collections which is indeterminate but could be due to active arterial extravasation or reactive change from the hematomas. Of note, this patient was injected twice with intravenous contrast for this study which likely accounts for the peripheral enhancement. 3. Diffuse soft tissue edema within the right leg. 4. Mild thickening of the rectum which contains a large amount well-formed stool. This could represent a developing stercoral colitis ACT 112: Negative or not required by law. Electronically signed by: Chris Bowens M.D. 08/22/2022 1:[address] 08/22/22 09:37 CT shoulder LT w con HISTORY: Rule out abscess formation in left axilla. ?Fever TECHNIQUE: Multiaxial CT images of the left shoulder were performed following the intravenous administration of 95 cc of Optiray 350 and reformatted in the sagittal and coronal plane. COMPARISON STUDY: CT left humerus 08/10/2022. FINDINGS: No change in the subacute nondisplaced fracture within the left posterior glenoid. No new fracture or dislocation within the left shoulder. Partially visualized moderate left pleural effusion with left basilar airspace opacities. These may represent atelectasis or a pneumonia. The multiple loculated peripherally enhancing fluid collections within the left latissimus dorsi and left subscapularis muscles which are similar in size compared to the prior study. Dominant collection within the left latissimus dorsi muscle on image 101 of 191 measures 5.5 x 5.1 cm. These loculated collections demonstrate areas of decreased in density compared to the prior study and therefore favor resolving/organizing intramuscular hematomas. Superimposed infection would be impossible to exclude by imaging but is considered less likely given the lack of associated soft tissue gas. No new loculated fluid collections/hematomas within the left shoulder. Heterotopic ossification is partially visualized within the left humerus. IMPRESSION: 1. There again noted multiple loculated peripheral enhancing fluid collections within the left latissimus dorsi and left subscapularis muscles as described above. These are similar in size compared to the prior study and demonstrate areas of decreasing density suggestive of resolving/organizing intramuscular hematomas. Secondary infection would be impossible to exclude by imaging but is considered less likely given the lack of associated soft tissue gas. 2. No new loculated fluid collections/hematomas within the left shoulder. 3. No change in the subacute nondisplaced fracture within the left posterior glenoid. 4. Moderate left pleural effusion and left basilar airspace opacities have progressed. This may represent atelectasis or a pneumonia. ACT 112: Negative or not required by law. Electronically signed by: Chrsi Bowens M.D. 08/22/2022 11:36 AM (1) Anemia Anemia type: unspecified type Qualified Code(s): D64.9 - Anemia, unspecified
[2022-08-22] MEDS: POLYETHYLENE (MIRALAX) 17 GM PACK PO SCH (14:26)
[2022-08-22] MEDS: TAMSULOSIN HCL 0.4 MG CAP PO SCH (20:41)
[2022-08-22] MEDS: ATORVASTATIN 40 MG TAB PO SCH (20:41)
[2022-08-23] MEDS: ENOXAPARIN 100 MG/1ML SYR SQ SCH ×3 (00:09→23:54)
[2022-08-23 06:47] LABS: Basophils # (auto) 0.03 K/uL (0-0.2); Basophils % (auto) 0.4 %; Eosinophils # (auto) 0.05 K/uL (0-0.50); Eosinophils % (auto) 0.6 %; Hematocrit (blood only) 38.6 % (42.0-52.0); Hemoglobin 11.8 g/dl (14.0-18.0); Immature Granulocytes # (auto) 0.02 K/uL (0.01-0.20); Immature Granulocytes % (auto) 0.2 %; Lymphocytes # (auto) 1.32 K/uL (1.2-3.4); Lymphocytes % (auto) 16.2 %; Mean Corpuscular Hemoglobin 25.6 pg (25.0-34.0); Mean Corpuscular Hgb Conc 30.6 g/dL (32.0-36.0); Mean Corpuscular Volume 83.7 fL (80.0-100.0); Mean Platelet Volume 10.4 fL (9.4-12.4); Monocytes # (auto) 0.36 K/uL (0.11-0.59); Monocytes % (auto) 4.4 %; Neutrophils # (auto) 6.39 K/uL (1.40-6.50); Neutrophils % (auto) 78.2 %; Platelet Count 326 K/uL (130-400); RDW Coefficient of Variation 20.9 % (11.5-14.5); RDW Standard Deviation 63.2 fL (36.4-46.3); Red Blood Count 4.61 M/uL (4.70-6.10); White Blood Count 8.17 K/ul (4.8-10.8)
[2022-08-23 07:02] LABS: Albumin Globulin Ratio 0.9 (0.9-2); Albumin Level 2.7 gm/dl (3.4-5.0); BUN Creatinine Ratio 46.7 (10-20); Bilirubin,Total 0.5 mg/dl (0.2-1.0); Calcium 8.2 mg/dl (8.5-10.1); Creatinine Clr Calc Pharmacy 150.6 ml/min; Est GFR (African American) 138.6 ml/min; Est GFR (Non-African American) 119.6 ml/min; Globulin 3.1 gm/dl (2.5-4.0); Potassium 4.3 mmol/L (3.5-5.1); Total Protein 5.8 gm/dl (6.0-8.3)
[2022-08-23 07:08] LABS: Anisocytosis Present; Echinocytes 1+
[2022-08-23] MEDS: SODIUM CHLOR 7% 4 ML NEB NEB SCH ×2 (07:18→19:17)
[2022-08-23] MEDS: ALBUT/IPRATROP 3MG/0.5MG NEB 3 ML VIAL NEB SCH ×2 (07:18→19:17)
[2022-08-23] MEDS: INSULIN ASPART PER UNIT CHARGE SC SCH ×4 (08:36→21:28)
[2022-08-23] MEDS: MAGNESIUM OXIDE 400 MG TAB PO SCH (08:37)
[2022-08-23] MEDS: PANTOprazole 40 MG TAB PO SCH ×2 (08:37→21:30)
[2022-08-23] MEDS: CLOPIDOGREL BISULFATE 75 MG TAB PO SCH (08:37)
[2022-08-23] MEDS: FOLIC ACID 1 MG TAB PO SCH (08:37)
[2022-08-23] MEDS: BACLOFEN 10 MG TAB PO SCH (08:37)
[2022-08-23] MEDS: carvediloL 12.5 MG TAB PO SCH ×2 (08:37→21:29)
[2022-08-23] MEDS: LANTUS PER UNIT CHARGE SQ SCH (08:37)
[2022-08-23] MEDS: COLLAGENASE OINT 30 GM TUBE EXT SCH ×2 (08:37→21:33)
[2022-08-23] MEDS: POLYETHYLENE (MIRALAX) 17 GM PACK PO SCH (08:38)
[2022-08-23] MEDS: cefTRIAXone SODIUM 2,000 MG in DEXTROSE 5% 50 ML IV SCH (10:01)
[2022-08-23] MEDS: ACETAMINOPHEN 325 MG TAB PO PRN ×3 (11:10→23:54)
--- NOTE | 2022-08-23 11:14 | Surgery Progress Note ---
I saw this patient with the surgical PA this am, agree with the plan Date of Service August 23, 2022 Assessment & Plan (1) Sacral wound: Plan: Patient here with sacral wound He is at a higher risk for surgical intervention given multiple medical issues in addition to being on plavix and lovenox Chemical debridement with santyl appears to be working. areas of eschar appear superficial Wound may benefit from some water/soap scrub to help soften/loosen up the eschars even more, then apply santyl and 4x4 gauze overtop Will continue to monitor for possible bedside debridement soon, no plans for OR at this time Frequent repositioning and ensure patient on appropriate mattress Admission and Anticipated Discharge Date Admission Date: August 09, 2022 Subjective Patient mostly non communicative during our evaluation. Appears in no distress, resting in bed Physical Exam Physical Exam: awake, no distress Respiratory: normal respiratory effort Gastrointestinal (Abdomen): buttocks wound appears stable, areas of eschar appear superficial with some lifting off at the edges Results & Data Vital Signs (Past 12 Hours) Vital Signs Temp Pulse Pulse Resp BP Pulse Ox O2 Del Method 08/23/22 07:40 36.5 C 87 14 147/78 H 98 Room Air 08/23/22 07:27 36.3 C L 77 14 150/82 H 96 Room Air 08/23/22 07:20 86 H 98 Room Air 08/23/22 03:18 37.6 C H 91 H 19 127/77 94 Room Air 08/22/22 23:31 77 FiO2 08/23/22 07:40 08/23/22 07:27 08/23/22 07:20 21 08/23/22 03:18 08/22/22 23:31 PG Care Time/CCT Total # of Minutes Spent Total Time Spent with Patient: Total time spent is greater than 50% in coordination of care (as documented) at patient's floor/unit and/or counseling patient: Coding Level of Care Code 56872 SUB INP/OBS CARE 06/30MIN Diagnoses Sacral wound S31.000A
[2022-08-23] MEDS ORDERED: VANCOMYCIN HCL 1,250 MG in SODIUM CHLORIDE 0.9% 500 ML IV ONE (13:41)
[2022-08-23] MEDS ORDERED: VANCOMYCIN CONSULT ACTIVE PRN (13:41)
--- NOTE | 2022-08-23 13:42 | Hospitalist Progress Note ---
Date of Service August 23, 2022 Assessment & Plan (1) Anemia: Plan: (1)Acute blood loss anemia, likely secondary to right thigh hematoma and left arm hematoma spontaneous, in the setting of Lovenox and Plavix use History of Recurrent DVT, and CVA Plan: Patient presenting from home with reported increased lethargy, taking Lovenox 120mg BID and Plavix As an outpatient, patient has been noted to have a downtrending hemoglobin (11.5 --> 8.0 --> 9.1 --> 8.9 on 07/27). Patient was started on iron replacement. 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 Colonoscopy was considered however patient was felt to not likely be able to tolerate the prep. In the ED, Hgb 5.9. Patient hemodynamically stable. CT abdomen/pelvis/angio: There is a large hematoma involving the medial aspect of the upper thigh measuring approximately 5.5 x 6.5 cm in axial dimension. Questionable heterogeneous density surrounding the right femur are concerning for second hematoma and measuring 5.7 x 5.5 cm in axial dimension. There is no evidence of active bleed. [facility] consulted: no surgery recommended. He was transfused 4 unit of packed RBC; hemoglobin improved to [address] scan of the thigh was done on 08/13; stable size of hematoma. Venous duplex of left arm done on 08/18 shows large complex left axillary fluid collection typical for hematoma. [facility] Consultant consulted: Dr. Richey- recommend to gradually start Lovenox- 40mg daily, then BID, then 80mg BID. Patient tolerated 2 days of Lovenox 80 mg twice daily; anti-Xa level was obtained on August 16; level was found to be 0.45. Discussion with hematology done again. Recommended to increase Lovenox to 100 mg twice daily and repeat anti-Xa level again. Repeat anti-Xa level was 0.6 which is within therapeutic range. Discussed with hematology again. Recommended to continue same doses. On the request of patient's regarding work-up for anemia; GI was informed and patient was planned for colonoscopy as inpatient on 08/19. However, further discussion with the ; she did not want patient to undergo colonoscopy preparation as she feels he is not at his baseline functional status and wants to do as outpatient. 2) Fever under evaluation Patient started to spike fever since 08/21. Possible source of infection include pneumonia, sacral decubitus ulcer, UTI, infected hematoma Chest x-ray shows pulm congestion; no infiltrate. Pro-Checo negative CT of right leg and left shoulder done with contrast to rule out infected hematoma; less likely infection. CT shoulder shows moderate pleural effusion and left basilar airspace disease. Blood culture obtained; no growth till date. Urinalysis pending We will place him on IV ceftriaxone as empiric coverage. We will also start him on vancomycin. Will obtain MRSA nares. Stop vancomycin if MRSA nares and blood culture is negative. Sacral wound evaluated by surgery; recommend continue wound care. (3) Sacral decubitus ulcer, stage II; POA Patient had sacral decubital ulcer which developed within 72 hours of hospitalization. Wound care consulted. General surgery consulted for possible debridement; recommended trial of chemical debridement by wound care before considering surgical debridement. Evaluated by surgery on 08/23; recommend continued wound care. Wound care commendation appreciated. (4) Elevated troponin: (5) CAD (coronary artery disease): Plan: Likely due to demand ischemia in the setting of profound anemia Continue beta-josé and statin. Plavix was also restarted. Troponin flat, 1100, 1300, 1000 EKG: No signs of acute ischemia or infarct Echo 45 to 45%, mild apical wall hypokinesis Cardiology service consulted-no further further interventions at this point Possible UTI Urine culture x 2: Coag Neg Staph discussed with Erica GIBBS given Dapto x 2 days and completed oral doxycycline course. Hagan cath in place in setting of sacral decubital ulcer. (6) Type 2 diabetes mellitus: Plan: Hgb A1c 5.2 06/2022 Lantus 8 units in AM NovoLog per protocol Monitor BSG's closely (7) History of CVA (cerebrovascular accident): Plan: History of recurrent CVA despite DAPT and anticoagulation therapy Chronic right hemiplegia/left arm paralysis/mostly nonverbal/expressive aphasia management of Lovenox + PLavix per above. Also on a statin. (8) H/O deep venous thrombosis: Plan: History of breakthrough DVT while on warfarin and Eliquis therapy, now on therapeutic dose Lovenox per above (9) HTN (hypertension): Plan: Currently on Coreg. Lisinopril presently on hold. (10) DVT prophylaxis: Plan: on Lovenox BID per above Disposition lives with at home. PT/OT ordered. Plan to discharge to rehab when placement available. Admission and Anticipated Discharge Date Admission Date: August 09, 2022 Subjective Patient seen and examined at bedside. His is also at the bedside. He was febrile to 38.9 C; hemodynamically remains stable. Review of Systems Review of Systems: Unobtainable due to cognitive status Physical Exam Physical Exam: General-lethargic but awake able with verbal stimuli; not in any distress. Eyes- anicteric Neck- no JVD Lungs- clear breath sounds bilaterally, no rales/wheezes. Occasional crackles heard Heart- normal rate, regular rhythm; no murmurs Abdomen- normal bowel sounds, nondistended, soft, nontender Sacrum- Stage 2 pressure ulcer with dark eschar. Picture in images Extremities- LUE: moderate edema, tenderness present in dorsal aspect of upper arm. RLE: thigh- mild edema, fem cath in place- no signs of infection no pretibial edema, no calf tenderness Neuro- no new gross focal neurologic deficits Skin- warm & dry Results & Data Results & Data Vital Signs (Past 12 Hours) Vital Signs Temp Pulse Resp BP Pulse Ox O2 Del Method FiO2 08/23/22 12:47 Room Air 08/23/22 12:22 37.2 C 08/23/22 11:28 38.9 C H 98 H 18 132/73 99 Room Air 08/23/22 07:40 36.5 C 87 14 147/78 H 98 Room Air 08/23/22 07:27 36.3 C L 77 14 150/82 H 96 Room Air 08/23/22 07:20 86 H 98 Room Air 21 08/23/22 03:18 37.6 C H 91 H 19 127/77 94 Room Air Laboratory Results Laboratory Results WBC 8.17 K/ul (4.8-10.8) 08/23/22 06:03 RBC 4.61 M/uL (4.70-6.10) L 08/23/22 06:03 Hgb 11.8 g/dl (14.0-18.0) L 08/23/22 06:03 Hct 38.6 % (42.0-52.0) L 08/23/22 06:03 MCV 83.7 fL (80.0-100.0) 08/23/22 06:03 MCH 25.6 pg (25.0-34.0) 08/23/22 06:03 MCHC 30.6 g/dL (32.0-36.0) L 08/23/22 06:03 RDW Std Deviation 63.2 fL (36.4-46.3) H 08/23/22 06:03 RDW Coeff of Caroline 20.9 % (11.5-14.5) H 08/23/22 06:03 Plt Count 326 K/uL (130-400) 08/23/22 06:03 MPV 10.4 fL (9.4-12.4) 08/23/22 06:03 Immature Gran % (Auto) 0.2 % 08/23/22 06:03 Neut % (Auto) 78.2 % 08/23/22 06:03 Lymph % (Auto) 16.2 % 08/23/22 06:03 Bertie % (Auto) 4.4 % 08/23/22 06:03 Eos % (Auto) 0.6 % 08/23/22 06:03 Baso % (Auto) 0.4 % 08/23/22 06:03 Neut # (Auto) 6.39 K/uL (1.40-6.50) 08/23/22 06:03 Lymph # (Auto) 1.32 K/uL (1.2-3.4) 08/23/22 06:03 Bertie # (Auto) 0.36 K/uL (0.11-0.59) 08/23/22 06:03 Eos # (Auto) 0.05 K/uL (0-0.50) 08/23/22 06:03 Baso # (Auto) 0.03 K/uL (0-0.2) 08/23/22 06:03 Immature Gran # (Auto) 0.02 K/uL (0.01-0.20) 08/23/22 06:03 Absolute Nucleated RBC Cancelled 08/17/22 07:00 Nucleated RBC % (auto) Cancelled 08/17/22 07:00 Neutrophils % (Manual) Cancelled 08/17/22 07:00 Band Neutrophils % Cancelled 08/17/22 07:00 Lymphocytes % (Manual) Cancelled 08/17/22 07:00 Prolymphocyte % Cancelled 08/17/22 07:00 Reactive Lymphs % (Man) Cancelled 08/17/22 07:00 Monocytes % (Manual) Cancelled 08/17/22 07:00 Eosinophils % (Manual) Cancelled 08/17/22 07:00 Basophils % (Manual) Cancelled 08/17/22 07:00 Metamyelocytes % (Man) Cancelled 08/17/22 07:00 Myelocytes % (Man) Cancelled 08/17/22 07:00 Promyelocytes % (Man) Cancelled 08/17/22 07:00 Blast Cells % (Manual) Cancelled 08/17/22 07:00 Plasma Cell % (Manual) Cancelled 08/17/22 07:00 Other Cells % Cancelled 08/17/22 07:00 Nucleated RBC % Cancelled 08/17/22 07:00 Neutrophils # (Manual) Cancelled 08/17/22 07:00 Band Neutrophils # Cancelled 08/17/22 07:00 Total Absolute Neuts Cancelled 08/17/22 07:00 Lymphocytes # (Manual) Cancelled 08/17/22 07:00 Prolymphocyte # Cancelled 08/17/22 07:00 Reactive Lymphs # Cancelled 08/17/22 07:00 Total Abs Lymphocytes Cancelled 08/17/22 07:00 Monocytes # (Manual) Cancelled 08/17/22 07:00 Eosinophils # (Manual) Cancelled 08/17/22 07:00 Basophils # (Manual) Cancelled 08/17/22 07:00 Metamyelocytes # (Man) Cancelled 08/17/22 07:00 Myelocytes # (Manual) Cancelled 08/17/22 07:00 Promyelocytes # (Man) Cancelled 08/17/22 07:00 Blast Cells # (Man) Cancelled 08/17/22 07:00 Plasma Cell # (Manual) Cancelled 08/17/22 07:00 Other Cells # Cancelled 08/17/22 07:00 Nucleated RBCs # (Man) Cancelled 08/17/22 07:00 Hypersegmented Neuts Cancelled 08/17/22 07:00 Hyposegmented Neuts Cancelled 08/17/22 07:00 Hypogranular Neuts Cancelled 08/17/22 07:00 Large Granular Lymphs Cancelled 08/17/22 07:00 # Lrg Granular Lymphs Cancelled 08/17/22 07:00 Hairy Cells Cancelled 08/17/22 07:00 Smudge Cells Cancelled 08/17/22 07:00 Toxic Granulation Cancelled 08/17/22 07:00 Toxic Vacuolation Cancelled 08/17/22 07:00 Dohle Bodies Cancelled 08/17/22 07:00 Esau Rods Cancelled 08/17/22 07:00 Platelet Estimate Cancelled 08/17/22 07:00 Hypogranular Platelets Cancelled 08/17/22 07:00 Giant Platelets Cancelled 08/17/22 07:00 Platelet Satelliting Cancelled 08/17/22 07:00 RBC Morphology Unremarkable 08/22/22 05:43 Polychromasia 1+ 08/21/22 05:58 Hypochromasia Cancelled 08/17/22 07:00 Poikilocytosis Cancelled 08/17/22 07:00 Basophilic Stippling Cancelled 08/17/22 07:00 Anisocytosis Present 08/23/22 06:03 Microcytosis Cancelled 08/17/22 07:00 Macrocytosis Cancelled 08/17/22 07:00 Spherocytes 1+ 08/18/22 06:09 Pappenheimer Bodies Cancelled 08/17/22 07:00 Sickle Cells Cancelled 08/17/22 07:00 Target Cells Cancelled 08/17/22 07:00 Tear Drop Cells Cancelled 08/17/22 07:00 Ovalocytes Cancelled 08/17/22 07:00 Stomatocytes Cancelled 08/17/22 07:00 Webster-Sligo Bodies Cancelled 08/17/22 07:00 Echinocytes 1+ 08/23/22 06:03 Acanthocytes (Spur) Cancelled 08/17/22 07:00 Rouleaux Cancelled 08/17/22 07:00 RBC Agglutinates Cancelled 08/17/22 07:00 Schistocytes Cancelled 08/17/22 07:00 Sezary Cell Cancelled 08/17/22 07:00 PT 13.0 Seconds (9.0-12.0) H 08/09/22 15:05 INR 1.2 (0.9-1.1) H 08/09/22 15:05 APTT 33.1 Seconds (21.0-31.0) H 08/09/22 15:05 PTT Ratio 1.2 08/09/22 15:05 Heparin Anti-Xa, LM Wt 0.67 IU/ML (< 0.10) 08/19/22 04:01 Sodium 142 mmol/L (136-145) 08/23/22 06:03 Potassium 4.3 mmol/L (3.5-5.1) 08/23/22 06:03 Chloride 110 mmol/L (98-107) H 08/23/22 06:03 Carbon Dioxide 28 mmol/L (21-32) 08/23/22 06:03 Anion Gap 4 (3-11) 08/23/22 06:03 BUN 21 mg/dl (6-23) 08/23/22 06:03 Creatinine 0.45 mg/dl (0.6-1.4) L 08/23/22 06:03 Est Cr Clr Drug Dosing 150.6 ml/min 08/23/22 06:03 Est GFR ( Amer) 138.6 ml/min 08/23/22 06:03 Est GFR (Non-Af Amer) 119.6 ml/min 08/23/22 06:03 BUN/Creatinine Ratio 46.7 (10-20) H 08/23/22 06:03 Glucose 153 mg/dl (70-99(Fasting)) H 08/23/22 06:03 POC Glucose 162 mg/dl (70-99) H 08/23/22 11:20 Lactate 1.5 mmol/L (0.4-2.0) 08/09/22 15:05 Calcium 8.2 mg/dl (8.5-10.1) L 08/23/22 06:03 Phosphorus 3.2 mg/dl (2.5-4.9) 08/10/22 07:31 Magnesium 1.5 mg/dl (1.7-2.4) L 08/15/22 06:16 Iron 34 mcg/dl (35-175) L 08/13/22 06:01 TIBC 184 mcg/dl (250-450) L 08/13/22 06:01 Unsaturated IBC 150 mcg/dl (155-355) L 08/13/22 06:01 Transferrin 161 mg/dl (200-360) L 08/10/22 12:50 Transferrin % Sat 18 % (20-50) L 08/13/22 06:01 Ferritin 256.6 ng/ml (8-388) 08/10/22 12:50 Total Bilirubin 0.5 mg/dl (0.2-1.0) 08/23/22 06:03 Direct Bilirubin 0.1 mg/dl (0-0.2) 08/09/22 15:05 AST 8 U/L (13-39) L 08/23/22 06:03 ALT 7 U/L (7-52) 08/23/22 06:03 Alkaline Phosphatase 124 U/L (34-104) H 08/23/22 06:03 Ammonia 25.0 umol/L (18-72) 08/09/22 15:05 Total Creatine Kinase 175 U/L (30-223) 08/09/22 15:05 Troponin I High Sens 1008.3 pg/ml (0-20) H* D 08/10/22 07:31 Total Protein 5.8 gm/dl (6.0-8.3) L 08/23/22 06:03 Albumin 2.7 gm/dl (3.4-5.0) L 08/23/22 06:03 Globulin 3.1 gm/dl (2.5-4.0) 08/23/22 06:03 Albumin/Globulin Ratio 0.9 (0.9-2) 08/23/22 06:03 Vitamin B12 436 pg/ml (180-914) 08/10/22 12:50 Procalcitonin 0.05 ng/ml (0-0.5) 08/22/22 09:49 TSH 2.154 uIu/ml (0.300-4.500) 08/13/22 18:24 Urine Color [place] 08/11/22 00:41 Urine Appearance Clear (Clear) 08/11/22 00:41 Urine pH 5.5 (4.5-7.5) 08/11/22 00:41 Ur Specific [place] 1.040 (1.000-1.030) H 08/11/22 00:41 Urine Protein Trace (Negative) H 08/11/22 00:41 Urine Glucose (UA) Negative (Negative) 08/11/22 00:41 Urine Ketones Trace (Negative) H 08/11/22 00:41 Urine Blood Negative (Negative) 08/11/22 00:41 Urine Nitrite Positive (Negative) A 08/11/22 00:41 Urine Bilirubin Negative (Negative) 08/11/22 00:41 Urine Urobilinogen Negative (Negative) 08/11/22 00:41 Ur Leukocyte Esterase 2+ (Negative) H 08/11/22 00:41 Urine WBC (Auto) >30 /hpf (0-5) H 08/11/22 00:41 Urine RBC (Auto) 0-4 /hpf (0-4) 08/11/22 00:41 U Hyaline Cast (Auto) 1-5 /lpf (0-5) 08/11/22 00:41 U Epithel Cells (Auto) 0-5 /lpf (0-5) 08/11/22 00:41 Urine Bacteria (Auto) Negative (Negative) 08/11/22 00:41 Ur Renal Epithelial Cell Not Reportable 08/09/22 15:50 Urine Yeast Not Reportable 08/11/22 00:41 Stool Occult Bld Scrn Negative (Negative) 08/14/22 11:16 SARS-CoV-2 (PCR) NEGATIVE (Negative) 08/09/22 16:00 Influenza Type A (PCR) Negative (Neg) 08/09/22 16:00 Influenza Type B (PCR) Negative (Neg) 08/09/22 16:00 RSV (RT-PCR) Negative (Neg) 08/09/22 16:00 Blood Parasites ID Cancelled 08/17/22 07:00 Blood Type A Positive 08/09/22 15:09 Antibody Screen NEGATIVE 08/09/22 15:09 Crossmatch See Detail 08/09/22 15:[address] 08/09/22 12:34 CT SCAN OF THE BRAIN WITHOUT IV CONTRAST CLINICAL HISTORY: Lethargy. COMPARISON STUDY: CT of the brain dated 08/20/2021. TECHNIQUE: Unenhanced axial CT scan of the brain is performed from the vertex to the skull base. A dose lowering technique was utilized adhering to the principles of ALARA. CT DOSE: 614.27 mGy.cm FINDINGS: Brain parenchyma: There is age-advanced involutional change noting advanced confluent subcortical and periventricular microangiopathic disease. There is no hemorrhage, mass effect, or evidence of acute territorial ischemia by CT criteria. A small chronic infarct is noted in the high right parietal lobe. Rose-white matter differentiation is preserved. No extra-axial fluid collection is seen. Ventricles, sulci, cisterns: Prominent secondary to involutional change. Intracranial vasculature: There is atherosclerotic calcification of the cavernous carotid and vertebral arteries. Calvarium: Unremarkable. Sinuses and mastoids: The visualized paranasal sinuses are clear. The mastoid air cells are well pneumatized. Orbits: The bony orbits are grossly intact. IMPRESSION: There is no hemorrhage, mass effect, or evidence of acute territorial ischemia by CT criteria. ACT 112: Negative or not required by law. Electronically signed by: Donny Fernando M.D. 08/09/2022 3:38 PM Abdomen/Pelvis CT 08/10/22 00:22 CR Exam(s): CT ABDOMEN + PELVIS Without Contrast EXAM: CT Abdomen and Pelvis Without Intravenous Contrast CLINICAL HISTORY: Reason for exam: anemia. any bleeding?. TECHNIQUE: Axial computed tomography images of the abdomen and pelvis without intravenous contrast. CTDI is 16.7 mGy and DLP is 945.35 mGy-cm. Automated exposure control was utilized for the study. A dose lowering technique was utilized adhering to the principles of ALARA. COMPARISON: CT Abdomen Pelvis dated 03/18/2020 FINDINGS: Artifacts: Artifact in the upper abdomen from patient's arms. Lung bases: See below. Pleural space: Small bilateral pleural effusions greater on the left. Mild bibasilar atelectasis. Heart: Marked coronary artery calcifications. ABDOMEN: Liver: Unremarkable. Gallbladder and bile ducts: Unremarkable. No calcified stones. No ductal dilation. Pancreas: Unremarkable. No ductal dilation. Spleen: Unremarkable. No splenomegaly. Adrenals: Nodular adrenal glands, similar to the prior. Kidneys and ureters: Left renal low-density lesion better seen on the prior. No obstructing stones. No hydronephrosis. Stomach and bowel: Large amount of stool within distended rectum. No mucosal thickening. No bowel obstruction. PELVIS: Appendix: No findings to suggest acute appendicitis. Bladder: Bladder wall thickening of partially distended bladder. No stones. Reproductive: Unremarkable as visualized. ABDOMEN and PELVIS: Intraperitoneal space: See above. Bones/joints: Median sternotomy wires. Minimal sclerosis of the left inferior pubic ramus, new since the prior. Soft tissues: Enlarged right abductor musculature which appears hyperdense. Partially visualized on the inferior most images. Approximately 5 cm in transverse dimension. Dystrophic soft tissue calcifications/heterotopic ossification bilaterally in the musculature between the inferior pubic rami and proximal femurs. Chronic appearance although new since the prior study. Partially visualized. Anasarca. Soft tissue calcifications noted in the left forearm soft tissues, partially visualized. Vasculature: Marked diffuse atherosclerotic calcifications. Lymph nodes: Unremarkable. No enlarged lymph nodes. Tubes, lines and devices: Right this catheter with the tip in the right common iliac vein. IMPRESSION: 1. Enlarged right abductor musculature which appears hyperdense. Partially visualized on the inferior most images. Likely represents hematoma, approximately 5 cm in transverse dimension. Active bleeding or underlying lesion not excluded. 2. Large amount of stool within distended rectum. 3. Bladder wall thickening of partially distended bladder. May reflect cystitis or chronic bladder obstruction. 4. Dystrophic soft tissue calcifications/heterotopic ossification bilaterally in the musculature between the inferior pubic rami and proximal femurs. Chronic appearance although new since the prior study. Partially visualized. 5. Minimal sclerosis of the left inferior pubic ramus, new since the prior. Nonspecific. Correlate for infectious/inflammatory or neoplastic process. 6. Anasarca. 7. Small bilateral pleural effusions greater on the left. Mild bibasilar atelectasis. Communications: Verify Receipt Call Doctor Above results Electronically signed by: Thiago Wheeler M.D. 08/10/22 02:28 AM Lower Extremity CTA 08/10/22 02:42 Exam(s): CTA EXTREMITY RIGHT LOWER W/WO Contrast IV Amt: 105 ml optiray 320 EXAM: CT Angiography of the Right Lower Extremity With Intravenous Contrast CLINICAL HISTORY: Reason for exam: right thigh hematoma. active bleeding?. TECHNIQUE: Axial computed tomographic angiography images of the right lower extremity with intravenous contrast. CTDI is 49.29 mGy and DLP is 1250.2 mGy-cm. Automated exposure control was utilized for the study. A dose lowering technique was utilized adhering to the principles of ALARA. MIP reconstructed images were created and reviewed. CONTRAST: Patient received 105 ml optiray 320 of IV contrast COMPARISON: None. FINDINGS: VASCULATURE: Aorta: Severe calcified atherosclerotic disease tibioperoneal trunk. There is calcified atherosclerotic disease of aorta with no aneurysm. Right iliac arteries: Mild calcified atherosclerotic disease throughout the right external iliac artery with no significant stenosis. Right femoral/popliteal arteries: Scattered calcified atherosclerotic disease throughout the right superficial femoral artery, more severe distally. Cannot exclude areas of moderate to high-grade stenosis involving the distal superficial femoral artery. Severe atherosclerotic disease of the popliteal artery with areas of moderate to high-grade stenosis. Right calf/foot arteries: Severe disease through the right anterior tibial artery with multiple areas of high-grade stenosis in a short segment occlusions. Severe disease through the posterior tibial artery with multiple areas of high-grade stenosis and short segment occlusion. Distal reconstitution at the ankle noted. Moderate disease through the peroneal artery seen as a continuous vessel to the ankle. LOWER EXTREMITY: Bones/joints: There is a right-sided femoral line in place. Soft tissues: There is a large hematoma involving the medial aspect of the upper thigh measuring approximately 5.5 x 6.5 cm in axial dimension. Questionable heterogeneous density surrounding the right femur are concerning for second hematoma and measuring 5.7 x 5.5 cm in axial dimension. There is no evidence of active bleed. Bladder: Intrapelvic structures revealed borderline thickening of urinary bladder wall, cannot exclude cystitis. IMPRESSION: 1. Hematoma involving the medial and upper aspect of the right thigh and surrounding the mid cephalad femur. No evidence of active bleed. 2. Severe atherosclerotic disease involving the right lower extremity more significant through the distal superficial femoral and popliteal artery with areas of high-grade stenosis distally. 3. Severe disease through the trifurcation vessels with single vessel runoff through the peroneal artery. Multiple areas of high-grade stenosis or occlusions with the anterior tibial artery and posterior tibial artery as described. Electronically signed by: Merline Macias MD 08/10/22 05:[address] 08/10/22 09:47 CT forearm LT wo con, CT humerus LT wo con CLINICAL HISTORY: edema, r/o hematoma TECHNIQUE: Multidetector row helical CT of the left forearm and left humerus was performed without intravenous contrast. Coronal and sagittal reformations were obtained. Automated dose lowering techniques and/or adjustment according to patient size were utilized for this examination. Comparison: None available at the time of this dictation. FINDINGS: Heterotopic ossification is seen about the elbow. The joint spaces are maintained. No joint effusion is seen. Soft tissue edema is seen about the elbow and forearm without discrete drainable fluid collection. Atherosclerosis is noted. IMPRESSION: Soft tissue edema and heterotopic ossification. This may represent cellulitis, simple edema or contusion. No discrete fluid collection is seen. ACT 112: Negative or not required by law. Electronically signed by: Bradley Reeves M.D. 08/10/2022 11:[address] 08/10/22 09:47 CT forearm LT wo con, CT humerus LT wo con CLINICAL HISTORY: edema, r/o hematoma TECHNIQUE: Multidetector row helical CT of the left forearm and left humerus was performed without intravenous contrast. Coronal and sagittal reformations were obtained. Automated dose lowering techniques and/or adjustment according to patient size were utilized for this examination. Comparison: None available at the time of this dictation. FINDINGS: Heterotopic ossification is seen about the elbow. The joint spaces are maintained. No joint effusion is seen. Soft tissue edema is seen about the elbow and forearm without discrete drainable fluid collection. Atherosclerosis is noted. IMPRESSION: Soft tissue edema and heterotopic ossification. This may represent cellulitis, simple edema or contusion. No discrete fluid collection is seen. ACT 112: Negative or not required by law. Electronically signed by: Bradley Reeves M.D. 08/10/2022 11:42 AM Extremity Venous Study 08/18/22 12:04 ULTRASOUND LEFT UPPER EXTREMITY VENOUS CLINICAL HISTORY: Left arm pain and swelling. COMPARISON STUDY: Left upper extremity venous ultrasound dated 06/03/2022. CT of the left humerus dated 08/10/2022. TECHNIQUE: Real-time, grayscale, and color Doppler sonography of the deep veins of the left upper extremity is performed. Compression and augmentation were utilized. FINDINGS: There is no sonographic evidence of deep venous thrombosis identified in the left upper extremity. The left internal jugular, axillary, and brachial veins are patent and normally compressible. Normal venous waveforms and augmentation are seen within the left subclavian vein. The cephalic and basilic veins are clear. The visualized radial and ulnar veins are patent. There is a large complex nonvascular fluid collection in the left axilla. This measures approximate 7 x 4 x 7 cm. Soft tissue edema seen in the left upper extremity. IMPRESSION: 1. There is no sonographic evidence of deep venous thrombosis identified in the left upper extremity. 2. There is a large complex left axillary fluid collection, which is typical for a hematoma. Clinical correlation will be required. ACT 112: Negative or not required by law. Electronically signed by: Donny Fernando M.D. 08/18/2022 2:27 PM Chest X-Ray 08/22/22 09:32 XR chest 1V portable HISTORY: Shortness of breath. Rule out pneumonia COMPARISON: Chest 08/10/2022. FINDINGS: No pneumothorax. No pleural effusions. The heart is mildly enlarged. There is progressive interstitial/vascular thickening consistent with mild pulmonary edema. The heart remains mildly enlarged. There are poststernotomy changes. There are low lung volumes. Heterotopic ossification again noted within the right shoulder/scapula. IMPRESSION: Developing mild interstitial pulmonary edema. ACT 112: Negative or not required by law. Electronically signed by: Chris Bowens M.D. 08/22/2022 10:[address] 08/22/22 09:36 CT femur RT w con HISTORY: Rule out abscess formation in hematoma. Fever TECHNIQUE: Multiaxial CT images of the right femur were performed following the intravenous administration of 94 cc of Optiray 350. Sagittal and coronal reformations were also obtained. COMPARISON STUDY: Right femur CT 08/13/2022. FINDINGS: Diffuse subcutaneous edema noted within the right leg. There is a Hagan catheter within the bladder. Large amount of stool within the distal rectum which appears mildly thickened for the degree of distention. This could represent a developing stercoral colitis. No acute fracture or dislocation within the right femur. Heterotopic ossification posterior to the proximal right femur again noted. There are multiloculated mixed density intramuscular collections within the right adductor, vastus intermedialis, and within the distal vastus medialis muscles. These are similar in size compared to the prior study but demonstrate decreasing density suggestive of organizing hematomas. There is a lobular peripheral enhancement surrounding these collections within the abductor muscles and vastus intermedius muscle. This is nonspecific but could be due to active arterial extravasation or reactive change from the posttraumatic change. Superimposed infection would be difficult to exclude but considered less likely given the lack of soft tissue gas within these collections. And advanced vascular calcifications are again noted. Dominant collection within the vastus intermedius muscle measures approximately 17 x 6 x 6 cm. IMPRESSION: 1. There again noted multiloculated mixed density intramuscular collections within the right thigh as described above. These are similar in size compared to the prior study but demonstrate decreasing density suggestive of organizing hematomas. Secondary infection would be impossible to exclude by imaging but is considered less likely given the lack of soft tissue gas 2. Lobular peripheral enhancement within these collections which is indeterminate but could be due to active arterial extravasation or reactive change from the hematomas. Of note, this patient was injected twice with intravenous contrast for this study which likely accounts for the peripheral enhancement. 3. Diffuse soft tissue edema within the right leg. 4. Mild thickening of the rectum which contains a large amount well-formed s tool. This could represent a developing stercoral colitis ACT 112: Negative or not required by law. Electronically signed by: Chris Bowens M.D. 08/22/2022 1:[address] 08/22/22 09:37 CT shoulder LT w con HISTORY: Rule out abscess formation in left axilla. ?Fever TECHNIQUE: Multiaxial CT images of the left shoulder were performed following t he intravenous administration of 95 cc of Optiray 350 and reformatted in the sagittal and coronal plane. COMPARISON STUDY: CT left humerus 08/10/2022. FINDINGS: No change in the subacute nondisplaced fracture within the left posterior glenoid. No new fracture or dislocation within the left shoulder. Partially visualized moderate left pleural effusion with left basilar airspace opacities. These may represent atelectasis or a pneumonia. The multiple loculated peripherally enhancing fluid collections within the left latissimus dorsi and left subscapularis muscles which are similar in size compared to the prior study. Dominant collection within the left latissimus dorsi muscle on image 101 of 191 measures 5.5 x 5.1 cm. These loculated collections demonstrate areas of decreased in density compared to the prior study and therefore favor resolving/organizing intramuscular hematomas. Superimposed infection would be impossible to exclude by imaging but is considered less likely given the lack of associated soft tissue gas. No new loculated fluid collections/hematomas within the left shoulder. Heterotopic ossification is partially visualized within the left humerus. IMPRESSION: 1. There again noted multiple loculated peripheral enhancing fluid collections within the left latissimus dorsi and left subscapularis muscles as described above. These are similar in size compared to the prior study and demonstrate areas of decreasing density suggestive of resolving/organizing intramuscular hematomas. Secondary infection would be impossible to exclude by imaging but is considered less likely given the lack of associated soft tissue gas. 2. No new loculated fluid collections/hematomas within the left shoulder. 3. No change in the subacute nondisplaced fracture within the left posterior glenoid. 4. Moderate left pleural effusion and left basilar airspace opacities have progressed. This may represent atelectasis or a pneumonia. ACT 112: Negative or not required by law. Electronically signed by: Chris Bowens M.D. 08/22/2022 11:36 AM (1) Anemia Anemia type: unspecified type Qualified Code(s): D64.9 - Anemia, unspecified
[2022-08-23] MEDS ORDERED: VANCOMYCIN HCL 1,500 MG in SODIUM CHLORIDE 0.9% 500 ML IV ONE (14:00)
--- NOTE | 2022-08-23 14:17 | Pharmacy Report ---
Pharmacy PK ABX Note - Date of Service August 23, 2022 - Assessment and Plan Assessment 62 year old M receiving empiric vancomycin and ceftriaxone for treatment of unexplained fever (multiple potential sources possible) . Pertinent microbiologic data includes: MRSA Nasal Swab ordered, can likely d/c vanco if swab negative per hospitalist note. Blood cultures x 4 (08/22 and 08/23) pending. Day # 1 of vancomycin therapy. Plan Vancomycin * Loading dose: 1500 mg IV x 1 * Maintenance dose: 1000 mg IV every 8 hours * Regimen is predicted to achieve target AUC/SHIRA of 400-600 mg/L.hr * Will order level if therapy is continued beyond 48 hours Ceftriaxone * 2 g IV q24h Pharmacy will continue to follow and will adjust dose/frequency as necessary. Thank you. Pharmacy has transitioned to AUC monitoring for vancomycin. AUC/SHIRA is the preferred PK/PD target and is associated with decreased risk of nephrotoxicity compared to traditional trough targets.
[2022-08-23 14:37] LABS: Appearance Urine Clear (Clear); Bacteria Urine Automated Negative (Negative); Bilirubin Urine Negative (Negative); Blood Urine Negative (Negative); Color Urine Yellow; Epithelial Cell Urine Auto 0-5 /lpf (0-5); Glucose Urine UA Negative (Negative); Ketones Urine Negative (Negative); Leukocyte Esterase Urine 1+ (Negative); Nitrite Urine Negative (Negative); Protein Urine Negative (Negative); Specific Gravity Urine 1.033 (1.000-1.030); Urobilinogen Urine Negative (Negative)
[2022-08-23] MEDS: VANCOMYCIN HCL 1,000 MG in SODIUM CHLORIDE 0.9% 250 ML IV SCH (21:28)
[2022-08-23] MEDS: ATORVASTATIN 40 MG TAB PO SCH (21:29)
[2022-08-23] MEDS: TAMSULOSIN HCL 0.4 MG CAP PO SCH (21:29)
[2022-08-24] MEDS: VANCOMYCIN HCL 1,000 MG in SODIUM CHLORIDE 0.9% 250 ML IV SCH ×3 (05:13→22:17)
[2022-08-24 06:44] LABS: Basophils # (auto) 0.04 K/uL (0-0.2); Basophils % (auto) 0.4 %; Eosinophils # (auto) 0.02 K/uL (0-0.50); Eosinophils % (auto) 0.2 %; Hematocrit (blood only) 39.6 % (42.0-52.0); Hemoglobin 11.8 g/dl (14.0-18.0); Immature Granulocytes # (auto) 0.05 K/uL (0.01-0.20); Immature Granulocytes % (auto) 0.5 %; Lymphocytes # (auto) 1.71 K/uL (1.2-3.4); Lymphocytes % (auto) 18.1 %; Mean Corpuscular Hemoglobin 25.3 pg (25.0-34.0); Mean Corpuscular Hgb Conc 29.8 g/dL (32.0-36.0); Mean Platelet Volume 10.7 fL (9.4-12.4); Monocytes # (auto) 0.43 K/uL (0.11-0.59); Monocytes % (auto) 4.5 %; Neutrophils # (auto) 7.21 K/uL (1.40-6.50); Neutrophils % (auto) 76.3 %; Platelet Count 322 K/uL (130-400); RDW Coefficient of Variation 20.9 % (11.5-14.5); RDW Standard Deviation 64.2 fL (36.4-46.3); Red Blood Count 4.66 M/uL (4.70-6.10); White Blood Count 9.46 K/ul (4.8-10.8)
[2022-08-24 07:00] LABS: Albumin Globulin Ratio 0.8 (0.9-2); Albumin Level 2.7 gm/dl (3.4-5.0); BUN Creatinine Ratio 43.8 (10-20); Bilirubin,Total 0.5 mg/dl (0.2-1.0); Calcium 8.1 mg/dl (8.5-10.1); Creatinine Clr Calc Pharmacy 144.3 ml/min; Est GFR (Non-African American) 116.5 ml/min; Globulin 3.3 gm/dl (2.5-4.0); Potassium 4.1 mmol/L (3.5-5.1)
[2022-08-24 07:07] LABS: Anisocytosis Present; Echinocytes 1+
[2022-08-24] MEDS: ALBUT/IPRATROP 3MG/0.5MG NEB 3 ML VIAL NEB SCH ×2 (07:07→19:15)
[2022-08-24] MEDS: SODIUM CHLOR 7% 4 ML NEB NEB SCH ×2 (07:07→19:15)
[2022-08-24] MEDS: MAGNESIUM OXIDE 400 MG TAB PO SCH (08:05)
[2022-08-24] MEDS: CLOPIDOGREL BISULFATE 75 MG TAB PO SCH (08:05)
[2022-08-24] MEDS: PANTOprazole 40 MG TAB PO SCH ×2 (08:05→20:49)
[2022-08-24] MEDS: carvediloL 12.5 MG TAB PO SCH ×2 (08:05→20:49)
[2022-08-24] MEDS: FOLIC ACID 1 MG TAB PO SCH (08:05)
[2022-08-24] MEDS: BACLOFEN 10 MG TAB PO SCH (08:05)
[2022-08-24] MEDS: POLYETHYLENE (MIRALAX) 17 GM PACK PO SCH (08:06)
[2022-08-24] MEDS: COLLAGENASE OINT 30 GM TUBE EXT SCH ×2 (08:06→22:18)
[2022-08-24] MEDS: LANTUS PER UNIT CHARGE SQ SCH (08:18)
[2022-08-24] MEDS: INSULIN ASPART PER UNIT CHARGE SC SCH ×4 (08:18→20:47)
[2022-08-24] MEDS: ENOXAPARIN 100 MG/1ML SYR SQ SCH ×2 (12:13→22:19)
--- NOTE | 2022-08-24 15:44 | Hospitalist Progress Note ---
Date of Service August 24, 2022 Assessment & Plan (1) Anemia: Plan: (1)Acute blood loss anemia, likely secondary to right thigh hematoma and left arm hematoma spontaneous, in the setting of Lovenox and Plavix use History of Recurrent DVT, and CVA Plan: Patient presenting from home with reported increased lethargy, taking Lovenox 120mg BID and Plavix As an outpatient, patient has been noted to have a downtrending hemoglobin (11.5 --> 8.0 --> 9.1 --> 8.9 on 07/27). Patient was started on iron replacement. 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 Colonoscopy was considered however patient was felt to not likely be able to tolerate the prep. In the ED, Hgb 5.9. Patient hemodynamically stable. CT abdomen/pelvis/angio: There is a large hematoma involving the medial aspect of the upper thigh measuring approximately 5.5 x 6.5 cm in axial dimension. Questionable heterogeneous density surrounding the right femur are concerning for second hematoma and measuring 5.7 x 5.5 cm in axial dimension. There is no evidence of active bleed. [facility] consulted: no surgery recommended. He was transfused 4 unit of packed RBC; hemoglobin improved to [address] scan of the thigh was done on 08/13; stable size of hematoma. Venous duplex of left arm done on 08/18 shows large complex left axillary fluid collection typical for hematoma. [employer] consulted: Dr. Richey- recommend to gradually start Lovenox- 40mg daily, then BID, then 80mg BID. Patient tolerated 2 days of Lovenox 80 mg twice daily; anti-Xa level was obtained on August 16; level was found to be 0.45. Discussion with hematology done again. Recommended to increase Lovenox to 100 mg twice daily and repeat anti-Xa level again. Repeat anti-Xa level was 0.6 which is within therapeutic range. Discussed with hematology again. Recommended to continue same doses. On the request of patient's regarding work-up for anemia; GI was informed and patient was planned for colonoscopy as inpatient on 08/19. However, further discussion with the ; she did not want patient to undergo colonoscopy preparation as she feels he is not at his baseline functional status and wants to do as outpatient. 2) Fever under evaluation Patient started to spike fever since 08/21. Possible source of infection include pneumonia, sacral decubitus ulcer, UTI, infected hematoma Chest x-ray shows pulm congestion; no infiltrate. Pro-Checo negative CT of right leg and left shoulder done with contrast to rule out infected hematoma; less likely infection. CT shoulder shows moderate pleural effusion and left basilar airspace disease. Blood culture obtained; no growth till date. Urine Cx negative. Continue vancomycin and ceftriaxone for now. Appreciate ID input. Sacral wound evaluated by surgery; recommend continue wound care. (3) Sacral decubitus ulcer, stage II; POA Patient had sacral decubital ulcer which developed within 72 hours of hospitalization. Wound care consulted. General surgery consulted for possible debridement; recommended trial of chemical debridement by wound care before considering surgical debridement. Evaluated by surgery on 08/23; recommend continued wound care. Wound care commendation appreciated. (4) Elevated troponin: (5) CAD (coronary artery disease): Plan: Likely due to demand ischemia in the setting of profound anemia Continue beta-josé and statin. Plavix was also restarted. Troponin flat, 1100, 1300, 1000 EKG: No signs of acute ischemia or infarct Echo 45 to 45%, mild apical wall hypokinesis Cardiology service consulted-no further further interventions at this point Possible UTI Urine culture x 2: [place] discussed with Erica GIBBS given Dapto x 2 days and completed oral doxycycline course. Hagan cath in place in setting of sacral decubital ulcer. (6) Type 2 diabetes mellitus: Plan: Hgb A1c 5.2 06/2022 Lantus 8 units in AM NovoLog per protocol Monitor BSG's closely (7) History of CVA (cerebrovascular accident): Plan: History of recurrent CVA despite DAPT and anticoagulation therapy Chronic right hemiplegia/left arm paralysis/mostly nonverbal/expressive aphasia management of Lovenox + PLavix per above. Also on a statin. (8) H/O deep venous thrombosis: Plan: History of breakthrough DVT while on warfarin and Eliquis therapy, now on therapeutic dose Lovenox per above (9) HTN (hypertension): Plan: Currently on Coreg. Lisinopril presently on hold. (10) DVT prophylaxis: Plan: on Lovenox BID per above Disposition lives with at home. PT/OT ordered. Plan to discharge to rehab when placement available. Admission and Anticipated Discharge Date Admission Date: August 09, 2022 Subjective Patient seen and examined at bedside. Patient appears to be more alert today. Tmax of 38.1 C last 24 hours. Review of Systems Review of Systems: All systems reviewed & are unremarkable except as noted in Subjective Physical Exam Physical Exam: General-awake; responds to voice. Eyes- anicteric Neck- no JVD Lungs- clear breath sounds bilaterally, no rales/wheezes. Occasional crackles heard Heart- normal rate, regular rhythm; no murmurs Abdomen- normal bowel sounds, nondistended, soft, nontender Sacrum- Stage 2 pressure ulcer with dark eschar. Picture in images Extremities- LUE: moderate edema, tenderness present in dorsal aspect of upper arm. RLE: thigh- mild edema, fem cath in place- no signs of infection no pretibial edema, no calf tenderness Neuro- no new gross focal neurologic deficits Skin- warm & dry Results & Data Results & Data Vital Signs (Past 12 Hours) Vital Signs Temp Pulse Pulse Resp BP Pulse Ox O2 Del Method 08/24/22 15:19 75 08/24/22 15:04 36.7 C 81 18 124/68 95 Room Air 08/24/22 11:14 36.7 C 71 18 110/65 96 Room Air 08/24/22 08:00 73 08/24/22 08:00 Room Air 08/24/22 07:52 36.7 C 72 18 110/68 97 Room Air 08/24/22 07:23 74 18 97 Room Air 08/24/22 03:59 37.1 C 79 18 118/68 94 Room Air Laboratory Results Laboratory Results WBC 9.46 K/ul (4.8-10.8) 08/24/22 06:03 RBC 4.66 M/uL (4.70-6.10) L 08/24/22 06:03 Hgb 11.8 g/dl (14.0-18.0) L 08/24/22 06:03 Hct 39.6 % (42.0-52.0) L 08/24/22 06:03 MCV 85.0 fL (80.0-100.0) 08/24/22 06:03 MCH 25.3 pg (25.0-34.0) 08/24/22 06:03 MCHC 29.8 g/dL (32.0-36.0) L 08/24/22 06:03 RDW Std Deviation 64.2 fL (36.4-46.3) H 08/24/22 06:03 RDW Coeff of Caroline 20.9 % (11.5-14.5) H 08/24/22 06:03 Plt Count 322 K/uL (130-400) 08/24/22 06:03 MPV 10.7 fL (9.4-12.4) 08/24/22 06:03 Immature Gran % (Auto) 0.5 % 08/24/22 06:03 Neut % (Auto) 76.3 % 08/24/22 06:03 Lymph % (Auto) 18.1 % 08/24/22 06:03 [place] % (Auto) 4.5 % 08/24/22 06:03 Eos % (Auto) 0.2 % 08/24/22 06:03 Baso % (Auto) 0.4 % 08/24/22 06:03 Neut # (Auto) 7.21 K/uL (1.40-6.50) H 08/24/22 06:03 Lymph # (Auto) 1.71 K/uL (1.2-3.4) 08/24/22 06:03 [place] # (Auto) 0.43 K/uL (0.11-0.59) 08/24/22 06:03 Eos # (Auto) 0.02 K/uL (0-0.50) 08/24/22 06:03 Baso # (Auto) 0.04 K/uL (0-0.2) 08/24/22 06:03 Immature Gran # (Auto) 0.05 K/uL (0.01-0.20) 08/24/22 06:03 Absolute Nucleated RBC Cancelled 08/17/22 07:00 Nucleated RBC % (auto) Cancelled 08/17/22 07:00 Neutrophils % (Manual) Cancelled 08/17/22 07:00 Band Neutrophils % Cancelled 08/17/22 07:00 Lymphocytes % (Manual) Cancelled 08/17/22 07:00 Prolymphocyte % Cancelled 08/17/22 07:00 Reactive Lymphs % (Man) Cancelled 08/17/22 07:00 Monocytes % (Manual) Cancelled 08/17/22 07:00 Eosinophils % (Manual) Cancelled 08/17/22 07:00 Basophils % (Manual) Cancelled 08/17/22 07:00 Metamyelocytes % (Man) Cancelled 08/17/22 07:00 Myelocytes % (Man) Cancelled 08/17/22 07:00 Promyelocytes % (Man) Cancelled 08/17/22 07:00 Blast Cells % (Manual) Cancelled 08/17/22 07:00 Plasma Cell % (Manual) Cancelled 08/17/22 07:00 Other Cells % Cancelled 08/17/22 07:00 Nucleated RBC % Cancelled 08/17/22 07:00 Neutrophils # (Manual) Cancelled 08/17/22 07:00 Band Neutrophils # Cancelled 08/17/22 07:00 Total Absolute Neuts Cancelled 08/17/22 07:00 Lymphocytes # (Manual) Cancelled 08/17/22 07:00 Prolymphocyte # Cancelled 08/17/22 07:00 Reactive Lymphs # Cancelled 08/17/22 07:00 Total Abs Lymphocytes Cancelled 08/17/22 07:00 Monocytes # (Manual) Cancelled 08/17/22 07:00 Eosinophils # (Manual) Cancelled 08/17/22 07:00 Basophils # (Manual) Cancelled 08/17/22 07:00 Metamyelocytes # (Man) Cancelled 08/17/22 07:00 Myelocytes # (Manual) Cancelled 08/17/22 07:00 Promyelocytes # (Man) Cancelled 08/17/22 07:00 Blast Cells # (Man) Cancelled 08/17/22 07:00 Plasma Cell # (Manual) Cancelled 08/17/22 07:00 Other Cells # Cancelled 08/17/22 07:00 Nucleated RBCs # (Man) Cancelled 08/17/22 07:00 Hypersegmented Neuts Cancelled 08/17/22 07:00 Hyposegmented Neuts Cancelled 08/17/22 07:00 Hypogranular Neuts Cancelled 08/17/22 07:00 Large Granular Lymphs Cancelled 08/17/22 07:00 # Lrg Granular Lymphs Cancelled 08/17/22 07:00 Hairy Cells Cancelled 08/17/22 07:00 Smudge Cells Cancelled 08/17/22 07:00 Toxic Granulation Cancelled 08/17/22 07:00 Toxic Vacuolation Cancelled 08/17/22 07:00 Dohle Bodies Cancelled 08/17/22 07:00 Esau Rods Cancelled 08/17/22 07:00 Platelet Estimate Cancelled 08/17/22 07:00 Hypogranular Platelets Cancelled 08/17/22 07:00 Giant Platelets Cancelled 08/17/22 07:00 Platelet Satelliting Cancelled 08/17/22 07:00 RBC Morphology Unremarkable 08/22/22 05:43 Polychromasia 1+ 08/21/22 05:58 Hypochromasia Cancelled 08/17/22 07:00 Poikilocytosis Cancelled 08/17/22 07:00 Basophilic Stippling Cancelled 08/17/22 07:00 Anisocytosis Present 08/24/22 06:03 Microcytosis Cancelled 08/17/22 07:00 Macrocytosis Cancelled 08/17/22 07:00 Spherocytes 1+ 08/18/22 06:09 Pappenheimer Bodies Cancelled 08/17/22 07:00 Sickle Cells Cancelled 08/17/22 07:00 Target Cells Cancelled 08/17/22 07:00 Tear Drop Cells Cancelled 08/17/22 07:00 Ovalocytes Cancelled 08/17/22 07:00 Stomatocytes Cancelled 08/17/22 07:00 [place] Bodies Cancelled 08/17/22 07:00 Echinocytes 1+ 08/24/22 06:03 Acanthocytes (Spur) Cancelled 08/17/22 07:00 Rouleaux Cancelled 08/17/22 07:00 RBC Agglutinates Cancelled 08/17/22 07:00 Schistocytes Cancelled 08/17/22 07:00 Sezary Cell Cancelled 08/17/22 07:00 PT 13.0 Seconds (9.0-12.0) H 08/09/22 15:05 INR 1.2 (0.9-1.1) H 08/09/22 15:05 APTT 33.1 Seconds (21.0-31.0) H 08/09/22 15:05 PTT Ratio 1.2 08/09/22 15:05 Heparin Anti-Xa, LM Wt 0.67 IU/ML (< 0.10) 08/19/22 04:01 Sodium 141 mmol/L (136-145) 08/24/22 06:03 Potassium 4.1 mmol/L (3.5-5.1) 08/24/22 06:03 Chloride 111 mmol/L (98-107) H 08/24/22 06:03 Carbon Dioxide 27 mmol/L (21-32) 08/24/22 06:03 Anion Gap 3 (3-11) 08/24/22 06:03 BUN 21 mg/dl (6-23) 08/24/22 06:03 Creatinine 0.48 mg/dl (0.6-1.4) L 08/24/22 06:03 Est Cr Clr Drug Dosing 144.3 ml/min 08/24/22 06:03 Est GFR ( Amer) 135.0 ml/min 08/24/22 06:03 Est GFR (Non-Af Amer) 116.5 ml/min 08/24/22 06:03 BUN/Creatinine Ratio 43.8 (10-20) H 08/24/22 06:03 Glucose 146 mg/dl (70-99(Fasting)) H 08/24/22 06:03 POC Glucose 166 mg/dl (70-99) H 08/24/22 11:10 Lactate 1.5 mmol/L (0.4-2.0) 08/09/22 15:05 Calcium 8.1 mg/dl (8.5-10.1) L 08/24/22 06:03 Phosphorus 3.2 mg/dl (2.5-4.9) 08/10/22 07:31 Magnesium 1.5 mg/dl (1.7-2.4) L 08/15/22 06:16 Iron 34 mcg/dl (35-175) L 08/13/22 06:01 TIBC 184 mcg/dl (250-450) L 08/13/22 06:01 Unsaturated IBC 150 mcg/dl (155-355) L 08/13/22 06:01 Transferrin 161 mg/dl (200-360) L 08/10/22 12:50 Transferrin % Sat 18 % (20-50) L 08/13/22 06:01 Ferritin 256.6 ng/ml (8-388) 08/10/22 12:50 Total Bilirubin 0.5 mg/dl (0.2-1.0) 08/24/22 06:03 Direct Bilirubin 0.1 mg/dl (0-0.2) 08/09/22 15:05 AST 9 U/L (13-39) L 08/24/22 06:03 ALT 5 U/L (7-52) L 08/24/22 06:03 Alkaline Phosphatase 112 U/L (34-104) H 08/24/22 06:03 Ammonia 25.0 umol/L (18-72) 08/09/22 15:05 Total Creatine Kinase 175 U/L (30-223) 08/09/22 15:05 Troponin I High Sens 1008.3 pg/ml (0-20) H* D 08/10/22 07:31 Total Protein 6.0 gm/dl (6.0-8.3) 08/24/22 06:03 Albumin 2.7 gm/dl (3.4-5.0) L 08/24/22 06:03 Globulin 3.3 gm/dl (2.5-4.0) 08/24/22 06:03 Albumin/Globulin Ratio 0.8 (0.9-2) L 08/24/22 06:03 Vitamin B12 436 pg/ml (180-914) 08/10/22 12:50 Procalcitonin 0.05 ng/ml (0-0.5) 08/22/22 09:49 TSH 2.154 uIu/ml (0.300-4.500) 08/13/22 18:24 Urine Color Yellow 08/23/22 13:25 Urine Appearance Clear (Clear) 08/23/22 13:25 Urine pH 5.0 (4.5-7.5) 08/23/22 13:25 Ur Specific [place] 1.033 (1.000-1.030) H 08/23/22 13:25 Urine Protein Negative (Negative) 08/23/22 13:25 Urine Glucose (UA) Negative (Negative) 08/23/22 13:25 Urine Ketones Negative (Negative) 08/23/22 13:25 Urine Blood Negative (Negative) 08/23/22 13:25 Urine Nitrite Negative (Negative) 08/23/22 13:25 Urine Bilirubin Negative (Negative) 08/23/22 13:25 Urine Urobilinogen Negative (Negative) 08/23/22 13:25 Ur Leukocyte Esterase 1+ (Negative) H 08/23/22 13:25 Urine WBC (Auto) 10-30 /hpf (0-5) H 08/23/22 13:25 Urine RBC (Auto) 5-10 /hpf (0-4) H 08/23/22 13:25 U Hyaline Cast (Auto) 5-10 /lpf (0-5) H 08/23/22 13:25 U Epithel Cells (Auto) 0-5 /lpf (0-5) 08/23/22 13:25 Urine Bacteria (Auto) Negative (Negative) 08/23/22 13:25 Ur Renal Epithelial Cell Not Reportable 08/09/22 15:50 Urine Yeast Not Reportable 08/11/22 00:41 Nasal Screen MRSA (PCR) Negative (Negative) 08/23/22 14:25 Stool Occult Bld Scrn Negative (Negative) 08/14/22 11:16 SARS-CoV-2 (PCR) NEGATIVE (Negative) 08/09/22 16:00 Influenza Type A (PCR) Negative (Neg) 08/09/22 16:00 Influenza Type B (PCR) Negative (Neg) 08/09/22 16:00 RSV (RT-PCR) Negative (Neg) 08/09/22 16:00 Blood Parasites ID Cancelled 08/17/22 07:00 Blood Type A Positive 08/09/22 15:09 Antibody Screen NEGATIVE 08/09/22 15:09 Crossmatch See Detail 08/09/22 15:[address] 08/09/22 12:34 CT SCAN OF THE BRAIN WITHOUT IV CONTRAST CLINICAL HISTORY: Lethargy. COMPARISON STUDY: CT of the brain dated 08/20/2021. TECHNIQUE: Unenhanced axial CT scan of the brain is performed from the vertex to the skull base. A dose lowering technique was utilized adhering to the principles of ALARA. CT DOSE: 614.27 mGy.cm FINDINGS: Brain parenchyma: There is age-advanced involutional change noting advanced confluent subcortical and periventricular microangiopathic disease. There is no hemorrhage, mass effect, or evidence of acute territorial ischemia by CT criteria. A small chronic infarct is noted in the high right parietal lobe. Rose-white matter differentiation is preserved. No extra-axial fluid collection is seen. Ventricles, sulci, cisterns: Prominent secondary to involutional change. Intracranial vasculature: There is atherosclerotic calcification of the cavernous carotid and vertebral arteries. Calvarium: Unremarkable. Sinuses and mastoids: The visualized paranasal sinuses are clear. The mastoid air cells are well pneumatized. Orbits: The bony orbits are grossly intact. IMPRESSION: There is no hemorrhage, mass effect, or evidence of acute territorial ischemia by CT criteria. ACT 112: Negative or not required by law. Electronically signed by: Donny Fernando M.D. 08/09/2022 3:38 PM Abdomen/Pelvis CT 08/10/22 00:22 CR Exam(s): CT ABDOMEN + PELVIS Without Contrast EXAM: CT Abdomen and Pelvis Without Intravenous Contrast CLINICAL HISTORY: Reason for exam: anemia. any bleeding?. TECHNIQUE: Axial computed tomography images of the abdomen and pelvis without intravenous contrast. CTDI is 16.7 mGy and DLP is 945.35 mGy-cm. Automated exposure control was utilized for the study. A dose lowering technique was utilized adhering to the principles of ALARA. COMPARISON: CT Abdomen Pelvis dated 03/18/2020 FINDINGS: Artifacts: Artifact in the upper abdomen from patient's arms. Lung bases: See below. Pleural space: Small bilateral pleural effusions greater on the left. Mild bibasilar atelectasis. Heart: Marked coronary artery calcifications. ABDOMEN: Liver: Unremarkable. Gallbladder and bile ducts: Unremarkable. No calcified stones. No ductal dilation. Pancreas: Unremarkable. No ductal dilation. Spleen: Unremarkable. No splenomegaly. Adrenals: Nodular adrenal glands, similar to the prior. Kidneys and ureters: Left renal low-density lesion better seen on the prior. No obstructing stones. No hydronephrosis. Stomach and bowel: Large amount of stool within distended rectum. No mucosal thickening. No bowel obstruction. PELVIS: Appendix: No findings to suggest acute appendicitis. Bladder: Bladder wall thickening of partially distended bladder. No stones. Reproductive: Unremarkable as visualized. ABDOMEN and PELVIS: Intraperitoneal space: See above. Bones/joints: Median sternotomy wires. Minimal sclerosis of the left inferior pubic ramus, new since the prior. Soft tissues: Enlarged right abductor musculature which appears hyperdense. Partially visualized on the inferior most images. Approximately 5 cm in transverse dimension. Dystrophic soft tissue calcifications/heterotopic ossification bilaterally in the musculature between the inferior pubic rami and proximal femurs. Chronic appearance although new since the prior study. Partially visualized. Anasarca. Soft tissue calcifications noted in the left forearm soft tissues, partially visualized. Vasculature: Marked diffuse atherosclerotic calcifications. Lymph nodes: Unremarkable. No enlarged lymph nodes. Tubes, lines and devices: Right this catheter with the tip in the right common iliac vein. IMPRESSION: 1. Enlarged right abductor musculature which appears hyperdense. Partially visualized on the inferior most images. Likely represents hematoma, approximately 5 cm in transverse dimension. Active bleeding or underlying lesion not excluded. 2. Large amount of stool within distended rectum. 3. Bladder wall thickening of partially distended bladder. May reflect cystitis or chronic bladder obstruction. 4. Dystrophic soft tissue calcifications/heterotopic ossification bilaterally in the musculature between the inferior pubic rami and proximal femurs. Chronic appearance although new since the prior study. Partially visualized. 5. Minimal sclerosis of the left inferior pubic ramus, new since the prior. Nonspecific. Correlate for infectious/inflammatory or neoplastic process. 6. Anasarca. 7. Small bilateral pleural effusions greater on the left. Mild bibasilar atelectasis. Communications: Verify Receipt Call Doctor Above results Electronically signed by: Thiago Wheeler M.D. 08/10/22 02:28 AM Lower Extremity CTA 08/10/22 02:42 Exam(s): CTA EXTREMITY RIGHT LOWER W/WO Contrast IV Amt: 105 ml optiray 320 EXAM: CT Angiography of the Right Lower Extremity With Intravenous Contrast CLINICAL HISTORY: Reason for exam: right thigh hematoma. active bleeding?. TECHNIQUE: Axial computed tomographic angiography images of the right lower extremity with intravenous contrast. CTDI is 49.29 mGy and DLP is 1250.2 mGy-cm. Automated exposure control was utilized for the study. A dose lowering technique was utilized adhering to the principles of ALARA. MIP reconstructed images were created and reviewed. CONTRAST: Patient received 105 ml optiray 320 of IV contrast COMPARISON: None. FINDINGS: VASCULATURE: Aorta: Severe calcified atherosclerotic disease tibioperoneal trunk. There is calcified atherosclerotic disease of aorta with no aneurysm. Right iliac arteries: Mild calcified atherosclerotic disease throughout the right external iliac artery with no significant stenosis. Right femoral/popliteal arteries: Scattered calcified atherosclerotic disease throughout the right superficial femoral artery, more severe distally. Cannot exclude areas of moderate to high-grade stenosis involving the distal superficial femoral artery. Severe atherosclerotic disease of the popliteal artery with areas of moderate to high-grade stenosis. Right calf/foot arteries: Severe disease through the right anterior tibial artery with multiple areas of high-grade stenosis in a short segment occlusions. Severe disease through the posterior tibial artery with multiple areas of high-grade stenosis and short segment occlusion. Distal reconstitution at the ankle noted. Moderate disease through the peroneal artery seen as a continuous vessel to the ankle. LOWER EXTREMITY: Bones/joints: There is a right-sided femoral line in place. Soft tissues: There is a large hematoma involving the medial aspect of the upper thigh measuring approximately 5.5 x 6.5 cm in axial dimension. Questionable heterogeneous density surrounding the right femur are concerning for second hematoma and measuring 5.7 x 5.5 cm in axial dimension. There is no evidence of active bleed. Bladder: Intrapelvic structures revealed borderline thickening of urinary bladder wall, cannot exclude cystitis. IMPRESSION: 1. Hematoma involving the medial and upper aspect of the right thigh and surrounding the mid cephalad femur. No evidence of active bleed. 2. Severe atherosclerotic disease involving the right lower extremity more significant through the distal superficial femoral and popliteal artery with areas of high-grade stenosis distally. 3. Severe disease through the trifurcation vessels with single vessel runoff through the peroneal artery. Multiple areas of high-grade stenosis or occlusions with the anterior tibial artery and posterior tibial artery as described. Electronically signed by: Merline Macias MD 08/10/22 05:[address] 08/10/22 09:47 CT forearm LT wo con, CT humerus LT wo con CLINICAL HISTORY: edema, r/o hematoma TECHNIQUE: Multidetector row helical CT of the left forearm and left humerus was performed without intravenous contrast. Coronal and sagittal reformations were obtained. Automated dose lowering techniques and/or adjustment according to patient size were utilized for this examination. Comparison: None available at the time of this dictation. FINDINGS: Heterotopic ossification is seen about the elbow. The joint spaces are maintained. No joint effusion is seen. Soft tissue edema is seen about the elbow and forearm without discrete drainable fluid collection. Atherosclerosis is noted. IMPRESSION: Soft tissue edema and heterotopic ossification. This may represent cellulitis, simple edema or contusion. No discrete fluid collection is seen. ACT 112: Negative or not required by law. Electronically signed by: Bradley Reeves M.D. 08/10/2022 11:[address] 08/10/22 09:47 CT forearm LT wo con, CT humerus LT wo con CLINICAL HISTORY: edema, r/o hematoma TECHNIQUE: Multidetector row helical CT of the left forearm and left humerus was performed without intravenous contrast. Coronal and sagittal reformations were obtained. Automated dose lowering techniques and/or adjustment according to patient size were utilized for this examination. Comparison: None available at the time of this dictation. FINDINGS: Heterotopic ossification is seen about the elbow. The joint spaces are maintained. No joint effusion is seen. Soft tissue edema is seen about the elbow and forearm without discrete drainable fluid collection. Atherosclerosis is noted. IMPRESSION: Soft tissue edema and heterotopic ossification. This may represent cellulitis, simple edema or contusion. No discrete fluid collection is seen. ACT 112: Negative or not required by law. Electronically signed by: Bradley Reeves M.D. 08/10/2022 11:42 AM Extremity Venous Study 08/18/22 12:04 ULTRASOUND LEFT UPPER EXTREMITY VENOUS CLINICAL HISTORY: Left arm pain and swelling. COMPARISON STUDY: Left upper extremity venous ultrasound dated 06/03/2022. CT of the left humerus dated 08/10/2022. TECHNIQUE: Real-time, grayscale, and color Doppler sonography of the deep veins of the left upper extremity is performed. Compression and augmentation were utilized. FINDINGS: There is no sonographic evidence of deep venous thrombosis identified in the left upper extremity. The left internal jugular, axillary, and brachial veins are patent and normally compressible. Normal venous waveforms and augmentation are seen within the left subclavian vein. The cephalic and basilic veins are clear. The visualized radial and ulnar veins are patent. There is a large complex nonvascular fluid collection in the left axilla. This measures approximate 7 x 4 x 7 cm. Soft tissue edema seen in the left upper extremity. IMPRESSION: 1. There is no sonographic evidence of deep venous thrombosis identified in the left upper extremity. 2. There is a large complex left axillary fluid collection, which is typical for a hematoma. Clinical correlation will be required. ACT 112: Negative or not required by law. Electronically signed by: Donny Fernando M.D. 08/18/2022 2:27 PM Chest X-Ray 08/22/22 09:32 XR chest 1V portable HISTORY: Shortness of breath. Rule out pneumonia COMPARISON: Chest 08/10/2022. FINDINGS: No pneumothorax. No pleural effusions. The heart is mildly enlarged. There is progressive interstitial/vascular thickening consistent with mild pulmonary edema. The heart remains mildly enlarged. There are poststernotomy changes. There are low lung volumes. Heterotopic ossification again noted within the right shoulder/scapula. IMPRESSION: Developing mild interstitial pulmonary edema. ACT 112: Negative or not required by law. Electronically signed by: Chris Bowens M.D. 08/22/2022 10:[address] 08/22/22 09:36 CT femur RT w con HISTORY: Rule out abscess formation in hematoma. Fever TECHNIQUE: Multiaxial CT images of the right femur were performed following the intravenous administration of 94 cc of Optiray 350. Sagittal and coronal reformations were also obtained. COMPARISON STUDY: Right femur CT 08/13/2022. FINDINGS: Diffuse subcutaneous edema noted within the right leg. There is a Hagan catheter within the bladder. Large amount of stool within the distal rectum which appears mildly thickened for the degree of distention. This could represent a developing stercoral colitis. No acute fracture or dislocation wi thin the right femur. Heterotopic ossification posterior to the proximal right femur again noted. There are multiloculated mixed density intramuscular collections within the right adductor, vastus intermedialis, and within the distal vastus medialis muscles. These are similar in size compared to the prior study but demonstrate decreasing density suggestive of organizing hematomas. There is a lobular peripheral enhancement surrounding these collections within the abductor muscles and vastus intermedius muscle. This is nonspecific but could be due to active arterial extravasation or reactive change from the posttraumatic change. Superimposed infection would be difficult to exclude but considered less likely given the lack of soft tissue gas within these collections. And advanced vascular calcifications are again noted. Dominant collection within the vastus intermedius muscle measures approximately 17 x 6 x 6 cm. IMPRESSION: 1. There again noted multiloculated mixed density intramuscular collections within the right thigh as described above. These are similar in size compared to the prior study but demonstrate decreasing density suggestive of organizing hematomas. Secondary infection would be impossible to exclude by imaging but is considered less likely given the lack of soft tissue gas 2. Lobular peripheral enhancement within these collections which is indeterminate but could be due to active arterial extravasation or reactive change from the hematomas. Of note, this patient was injected twice with intravenous contrast for this study which likely accounts for the peripheral enhancement. 3. Diffuse soft tissue edema within the right leg. 4. Mild thickening of the rectum which contains a large amount well-formed stool. This could represent a developing stercoral colitis ACT 112: Negative or not required by law. Electronically signed by: Chris Bowens M.D. 08/22/2022 1:[address] 08/22/22 09:37 CT shoulder LT w con HISTORY: Rule out abscess formation in left axilla. ?Fever TECHNIQUE: Multiaxial CT images of the left shoulder were performed following the intravenous administration of 95 cc of Optiray 350 and reformatted in the sagittal and coronal plane. COMPARISON STUDY: CT left humerus 08/10/2022. FINDINGS: No change in the subacute nondisplaced fracture within the left posterior glenoid. No new fracture or dislocation within the left shoulder. Partially visualized moderate left pleural effusion with left basilar airspace opacities. These may represent atelectasis or a pneumonia. The multiple loculated peripherally enhancing fluid collections within the left latissimus dorsi and left subscapularis muscles which are similar in size compared to the prior study. Dominant collection within the left latissimus dorsi muscle on image 101 of 191 measures 5.5 x 5.1 cm. These loculated collections demonstrate areas of decreased in density compared to the prior study and therefore favor resol ving/organizing intramuscular hematomas. Superimposed infection would be impossible to exclude by imaging but is considered less likely given the lack of associated soft tissue gas. No new loculated fluid collections/hematomas within the left shoulder. Heterotopic ossification is partially visualized within the left humerus. IMPRESSION: 1. There again noted multiple loculated peripheral enhancing fluid collections within the left latissimus dorsi and left subscapularis muscles as described above. These are similar in size compared to the prior study and demonstrate areas of decreasing density suggestive of resolving/organizing intramuscular hematomas. Secondary infection would be impossible to exclude by imaging but is considered less likely given the lack of associated soft tissue gas. 2. No new loculated fluid collections/hematomas within the left shoulder. 3. No change in the subacute nondisplaced fracture within the left posterior glenoid. 4. Moderate left pleural effusion and left basilar airspace opacities have progressed. This may represent atelectasis or a pneumonia. ACT 112: Negative or not required by law. Electronically signed by: Chris Bowens M.D. 08/22/2022 11:36 AM (1) Anemia Anemia type: unspecified type Qualified Code(s): D64.9 - Anemia, unspecified
[2022-08-24] MEDS: ATORVASTATIN 40 MG TAB PO SCH (20:48)
[2022-08-24] MEDS: TAMSULOSIN HCL 0.4 MG CAP PO SCH (20:49)
[2022-08-25 05:07] LABS: Basophils # (auto) 0.04 K/uL (0-0.2); Basophils % (auto) 0.6 %; Eosinophils # (auto) 0.09 K/uL (0-0.50); Eosinophils % (auto) 1.3 %; Hematocrit (blood only) 32.6 % (42.0-52.0); Hemoglobin 9.8 g/dl (14.0-18.0); Immature Granulocytes # (auto) 0.03 K/uL (0.01-0.20); Immature Granulocytes % (auto) 0.4 %; Lymphocytes % (auto) 20.1 %; Mean Corpuscular Hemoglobin 25.6 pg (25.0-34.0); Mean Corpuscular Hgb Conc 30.1 g/dL (32.0-36.0); Mean Corpuscular Volume 85.1 fL (80.0-100.0); Mean Platelet Volume 10.9 fL (9.4-12.4); Monocytes # (auto) 0.31 K/uL (0.11-0.59); Monocytes % (auto) 4.4 %; Neutrophils % (auto) 73.2 %; Platelet Count 309 K/uL (130-400); RDW Coefficient of Variation 20.1 % (11.5-14.5); RDW Standard Deviation 62.7 fL (36.4-46.3); Red Blood Count 3.83 M/uL (4.70-6.10); White Blood Count 6.97 K/ul (4.8-10.8)
[2022-08-25 05:19] LABS: Albumin Globulin Ratio 0.8 (0.9-2); Albumin Level 2.4 gm/dl (3.4-5.0); BUN Creatinine Ratio 57.9 (10-20); Bilirubin,Total 0.3 mg/dl (0.2-1.0); Calcium 8.1 mg/dl (8.5-10.1); Creatinine Clr Calc Pharmacy 182.2 ml/min; Est GFR (African American) 148.6 ml/min; Est GFR (Non-African American) 128.2 ml/min; Potassium 3.7 mmol/L (3.5-5.1); Total Protein 5.4 gm/dl (6.0-8.3)
[2022-08-25 05:25] LABS: Anisocytosis Present; Echinocytes 1+; Ovalocytes 1+
[2022-08-25] MEDS: SODIUM CHLOR 7% 4 ML NEB NEB SCH ×2 (07:15→20:09)
[2022-08-25] MEDS: ALBUT/IPRATROP 3MG/0.5MG NEB 3 ML VIAL NEB SCH ×2 (07:15→20:09)
[2022-08-25] MEDS: INSULIN ASPART PER UNIT CHARGE SC SCH ×4 (08:42→21:28)
[2022-08-25] MEDS: LANTUS PER UNIT CHARGE SQ SCH (08:43)
[2022-08-25] MEDS: carvediloL 12.5 MG TAB PO SCH ×2 (08:45→21:22)
[2022-08-25] MEDS: CLOPIDOGREL BISULFATE 75 MG TAB PO SCH (08:45)
[2022-08-25] MEDS: BACLOFEN 10 MG TAB PO SCH (08:45)
[2022-08-25] MEDS: PANTOprazole 40 MG TAB PO SCH ×2 (08:46→21:21)
[2022-08-25] MEDS: POLYETHYLENE (MIRALAX) 17 GM PACK PO SCH (08:46)
[2022-08-25] MEDS: MAGNESIUM OXIDE 400 MG TAB PO SCH (08:46)
[2022-08-25] MEDS: FOLIC ACID 1 MG TAB PO SCH (08:46)
[2022-08-25] MEDS: VANCOMYCIN HCL 1,000 MG in SODIUM CHLORIDE 0.9% 250 ML IV SCH ×3 (09:55→23:49)
--- NOTE | 2022-08-25 11:08 | Pharmacy Report ---
Pharmacy PK ABX Note - Date of Service August 25, 2022 - Assessment and Plan Assessment 62 year old M receiving empiric vancomycin and ceftriaxone for treatment of unexplained fever (multiple potential sources possible) . Pertinent microbiologic data includes: MRSA nasal swab negative (continue vanco per hospitalist pending ID consult) Blood cultures x 4 (08/22 and 08/23) no growth at 48h and 24h respectively. Awaiting ID recommendations. Fevers have resolved since initiation of antibiotics (afebrile over past 36 hours). Renal function appears stable. Day # 3 of vancomycin therapy. Plan Vancomycin * Current regimen: 1000 mg IV every 8 hours * Trough level obtained 08/25/22 resulted as 12.7 mcg/mL. This is predicted to achieve target AUC/SHIRA of 400-600 mg/L.hr * Predicted AUC at steady state: 436 mg/L.hr * Continue 1000 mg IV every 8 hours * Will repeat level in the next 48-72 hours if therapy is continued and/or change in patient clinical status Ceftriaxone * 2 g IV q24h Pharmacy will continue to follow and will adjust dose/frequency as necessary. Thank you. Pharmacy has transitioned to AUC monitoring for vancomycin. AUC/SHIRA is the preferred PK/PD target and is associated with decreased risk of nephrotoxicity compared to traditional trough targets.
[2022-08-25 11:55] LABS: Hematocrit (blood only) 33.7 % (42.0-52.0); Hemoglobin 10.1 g/dl (14.0-18.0)
[2022-08-25] MEDS: cefTRIAXone SODIUM 2,000 MG in DEXTROSE 5% 50 ML IV SCH (12:13)
[2022-08-25] MEDS: COLLAGENASE OINT 30 GM TUBE EXT SCH ×2 (14:45→21:23)
[2022-08-25] MEDS ORDERED: SILVER NITR/POTASSIUM NITRATE APPLICATOR EXT ONE (15:45)
[2022-08-25] MEDS: ENOXAPARIN 100 MG/1ML SYR SQ SCH ×2 (16:11→23:50)
--- NOTE | 2022-08-25 16:17 | Surgery Progress Note ---
I examined the patient and spoke to the extensively regarding the wound. I was able to show her the condition of the wound and explain to her what the goals of our good wound care treatment would be. We also discussed the goals of debridement and that this was an opportune time as his last Lovenox dose had been held by medicine. I explained the risks and benefits of the debridement. She is aware that bleeding is a large risk. Consent was obtained. Procedure: Bedside debridement The necrotic tissue at the inferior and superior right buttock wound was debrided using alternating scissor and 11 blade to raised the necrotic tissue away from the wound. Roughly 3cm total of necrotic debris was able to be removed and healthier soft tissue was reached at these locations. No underlying purulent fluid or bone was encountered and the wound does not currently involve full thickness soft tissues. There is some superficial necrotic tissue that remains. The wound was dressed with Santyl and a wet to dry dressing. Recommended to hold the Lovenox for the remainder of the day. Total time with the patient and was 60 minutes. Date of Service August 25, 2022 Assessment & Plan (1) Sacral wound: Plan: Patient here with sacral wound Evaluated wound at bedside with surgeon, he has multiple areas of necrotic tissue with varying degrees of pressure injury with surrounding erythema He is at a higher risk for surgical intervention given multiple medical issues in addition to being on plavix and lovenox Decision was made to perform some bedside debridement, performed by surgeon In addition will continue chemical debridement with santyl, damp-dry gauze, covered by 4x4/ABD and lightly attached with paper tape Will need frequent repositioning and monitoring of prevention of further pressure wounds Would hold lovenox for today yet given debridement, may resume tomorrow Admission and Anticipated Discharge Date Admission Date: August 09, 2022 Subjective Patient resting in bed. No acute distress. Does not appear to feel sacral wound when palpated Physical Exam Physical Exam: awake, lying in bed Respiratory: normal respiratory effort Skin: sacral wound noted with surrounding erythema, with varying degrees of pressure injury noted in addition to area's of superficial necrotic eschar noted, appears slightly worse than previous. no underlying fluid collections noted Results & Data Vital Signs (Past 12 Hours) Vital Signs Temp Pulse Pulse Resp BP Pulse Ox O2 Del Method 08/25/22 12:00 36.9 C 70 18 124/73 99 Room Air 08/25/22 08:00 77 08/25/22 08:00 37 C 80 20 128/75 95 Room Air 08/25/22 07:53 80 18 97 Room Air PG Care Time/CCT Total # of Minutes Spent Total Time Spent with Patient: Total time spent is greater than 50% in coordination of care (as documented) at patient's floor/unit and/or counseling patient: Coding Level of Care Code 75908 SUB INP/OBS CARE 06/30MIN Diagnoses Sacral wound S31.000A
--- NOTE | 2022-08-25 17:35 | Hospitalist Progress Note ---
Date of Service August 25, 2022 Assessment & Plan (1) Anemia: Plan: per Dr. Eastman's notes with addendum: (1)Acute blood loss anemia, likely secondary to right thigh hematoma and left arm hematoma spontaneous, in the setting of Lovenox and Plavix use History of Recurrent DVT, and CVA Plan: Patient presenting from home with reported increased lethargy, taking Lovenox 120mg BID and Plavix As an outpatient, patient has been noted to have a downtrending hemoglobin (11.5 --> 8.0 --> 9.1 --> 8.9 on 07/27). Patient was started on iron replacement. 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 Colonoscopy was considered however patient was felt to not likely be able to tolerate the prep. In the ED, Hgb 5.9. Patient hemodynamically stable. CT abdomen/pelvis/angio: There is a large hematoma involving the medial aspect of the upper thigh measuring approximately 5.5 x 6.5 cm in axial dimension. Questionable heterogeneous density surrounding the right femur are concerning for second hematoma and measuring 5.7 x 5.5 cm in axial dimension. There is no evidence of active bleed. [facility] consulted: no surgery recommended. He was transfused 4 unit of packed RBC; hemoglobin improved to [address] scan of the thigh was done on 08/13; stable size of hematoma. Venous duplex of left arm done on 08/18 shows large complex left axillary fluid collection typical for hematoma. Mold Repairer consulted: Dr. Richey- recommend to gradually start Lovenox- 40mg da joshua, then BID, then 80mg BID. Patient tolerated 2 days of Lovenox 80 mg twice daily; anti-Xa level was obtained on August 16; level was found to be 0.45. Discussion with hematology done again. Recommended to increase Lovenox to 100 mg twice daily and repeat anti-Xa level again. Repeat anti-Xa level was 0.6 which is within therapeutic range. Discussed with hematology again. Recommended to continue same doses. On the request of patient's regarding work-up for anemia; GI was informed and patient was planned for colonoscopy as inpatient on 08/19. However, further discussion with the ; she did not want patient to undergo colonoscopy preparation as she feels he is not at his baseline functional status and wants to do as outpatient. 08/25 Hemoglobin 10.1 No obvious acute bleeding noted Lovenox held today per recommendation of GEN seo, as bedside debridement performed Monitor hemoglobin 2) Fever under evaluation Patient started to spike fever since 08/21. Possible source of infection include pneumonia, sacral decubitus ulcer, UTI, infected hematoma Chest x-ray shows pulm congestion; no infiltrate. Pro-Checo negative CT of right leg and left shoulder done with contrast to rule out infected hematoma; less likely infection. CT shoulder shows moderate pleural effusion and left basilar airspace disease. Blood culture obtained; no growth till date. Urine Cx negative. Continue vancomycin and ceftriaxone for now. Appreciate ID input. Sacral wound evaluated by surgery; recommend continue wound care. 08/25 Afebrile since the Blood culture: Negative Repeat urine culture: Negative Possible sources include: Left lung pneumonia-CAT scan ordered today Sacral decubitus ulcer Continue vancomycin plus ceftriaxone ID consulted-awaiting recommendations (3) Sacral decubitus ulcer, stage II; POA Patient had sacral decubital ulcer which developed within 72 hours of hospitalization. Wound care consulted. General surgery consulted for possible debridement; recommended trial of chemical debridement by wound care before considering surgical debridement. Evaluated by surgery on 08/23; recommend continued wound care. Wound care commendation appreciated. 08/25 Management per above (4) Elevated troponin: (5) CAD (coronary artery disease): Plan: Likely due to demand ischemia in the setting of profound anemia Continue beta-josé and statin. Plavix was also restarted. Troponin flat, 1100, 1300, 1000 EKG: No signs of acute ischemia or infarct Echo 45 to 45%, mild apical wall hypokinesis Cardiology service consulted-no further further interventions at this point Possible UTI Urine culture x 2: Coag Neg Staph discussed with Erica GIBBS given Dapto x 2 days and completed oral doxycycline course. Hagan cath in place in setting of sacral decubital ulcer. (6) Type 2 diabetes mellitus: Plan: Hgb A1c 5.2 06/2022 Lantus 8 units in AM NovoLog per protocol Monitor BSG's closely (7) History of CVA (cerebrovascular accident): Plan: History of recurrent CVA despite DAPT and anticoagulation therapy Chronic right hemiplegia/left arm paralysis/mostly nonverbal/expressive aphasia management of Lovenox + PLavix per above. Also on a statin. (8) H/O deep venous thrombosis: Plan: History of breakthrough DVT while on warfarin and Eliquis therapy, now on therapeutic dose Lovenox per above (9) HTN (hypertension): Plan: Currently on Coreg. Lisinopril presently on hold. (10) DVT prophylaxis: Plan: on Lovenox BID per above Disposition lives with at home. PT/OT ordered. Plan to discharge to rehab when placement available. Admission and Anticipated Discharge Date Admission Date: August 09, 2022 Subjective Follow-up for hematoma, fever, etc. Seen with patient's Ms. Downey at the bedside Patient is awake, answers simple questions with yes or no appropriately Denies pain, shortness of breath Appetite is good Afebrile for 2 days now No other new symptoms/issues per staff Review of Systems Review of Systems: all noted and negative except for above Physical Exam Physical Exam: General- oriented x 2, not in distress, speaks in sentences with no effort or accessory muscle use Eyes- anicteric Neck- no JVD Lungs-decreased breath sounds on the left, no crackles or wheezing Clear on the right Heart- normal rate, regular rhythm; no murmurs Abdomen- normal bowel sounds, nondistended, soft, nontender Extremities-very mild edema left upper extremity, edema of the right thigh resolved Back-sacral decubitus ulcer with areas of eschars noted No surrounding erythema No bleeding or discharge noted Neuro- alert, oriented x2; no new gross focal neurologic deficits Skin- warm & dry Results & Data Results & Data Vital Signs (Past 12 Hours) Vital Signs Temp Pulse Pulse Resp BP Pulse Ox O2 Del Method 08/25/22 16:00 36.9 C 76 20 134/75 97 Room Air 08/25/22 12:00 36.9 C 70 18 124/73 99 Room Air 08/25/22 08:00 77 08/25/22 08:00 37 C 80 20 128/75 95 Room Air 08/25/22 07:53 80 18 97 Room Air all noted and reviewed including below (1) Anemia Anemia type: unspecified type Qualified Code(s): D64.9 - Anemia, unspecified
[2022-08-25] MEDS: ACETAMINOPHEN 325 MG TAB PO PRN (19:32)
--- NOTE | 2022-08-25 19:41 | CT Scan Report ---
CT OF THE CHEST WITHOUT IV CONTRAST CLINICAL HISTORY: Evaluate for pleural effusion, pneumonia. COMPARISON STUDY: Chest radiograph August 22, [address] November 17, 2017. Left shoulder CT August 22, 2022. CT DOSE: 879.86 mGy.cm TECHNIQUE: Axial images of the chest were obtained without IV contrast. Images were reviewed in the axial, sagittal, and coronal planes. IV contrast was not administered for this examination. Automat ed exposure control was utilized for the study. A dose lowering technique was utilized adhering to t he principles of ALARA. FINDINGS: This exam is compromised by motion artifact. Several thyroid nodules are incidentally note d. There are median sternotomy wires and postoperative findings from bypass grafting. Mild cardiomega ly is noted. There is no pericardial effusion. Small to moderate left and small right pleural effusio ns are present. There is no pneumothorax. Subpleural left lower lobe opacity favors atelectasis. No d efinite consolidation to suggest pneumonia. No acute fractures within the bony thorax are noted. A escalera bacute fracture of the posterior left glenoid is noted. This was shown on prior CT. Note is again mad e of intramuscular fluid collections within the left shoulder, as shown on prior CT. These have sligh tly decreased in size. These contain areas of increased attenuation and favor resolving hematomas. Ap parent sites of myositis ossificans/old intramuscular hematomas within the right shoulder and distal left upper arm are noted. These findings are not acute. Body wall edema is present. IMPRESSION: 1. Small to moderate left and small right pleural effusions. Associated left lower lobe airspace opac ity favors atelectasis. 2. Exam compromised by motion artifact. 3. Intramuscular fluid collections within the left shoulder which favor resolving hematomas. These begum ve slightly decreased in size since CT of August 22, 2022. Redemonstration of a subacute posterior lef t glenoid fracture. ACT 112: Negative or not required by law. Electronically signed by: Pal Blunt M.D. 08/25/2022 7:39 PM
[2022-08-25] MEDS: TAMSULOSIN HCL 0.4 MG CAP PO SCH (21:21)
[2022-08-25] MEDS: ATORVASTATIN 40 MG TAB PO SCH (21:21)
--- NOTE | 2022-08-25 22:13 | Communication Note ---
Date of Service: August 25, 2022 Notified by RN of aspiration concerns. Patient coughed after drinking soda, thin consistency as per RN. AP Aspiration concerns N.p.o. for now [employer] consult in a.m.
[2022-08-26] MEDS: ALBUT/IPRATROP 3MG/0.5MG NEB 3 ML VIAL NEB SCH ×2 (07:01→20:41)
[2022-08-26] MEDS: SODIUM CHLOR 7% 4 ML NEB NEB SCH ×2 (07:01→20:41)
[2022-08-26 08:03] LABS: Basophils # (auto) 0.02 K/uL (0-0.2); Basophils % (auto) 0.4 %; Eosinophils # (auto) 0.06 K/uL (0-0.50); Eosinophils % (auto) 1.3 %; Hematocrit (blood only) 34.5 % (42.0-52.0); Hemoglobin 10.4 g/dl (14.0-18.0); Immature Granulocytes # (auto) 0.02 K/uL (0.01-0.20); Immature Granulocytes % (auto) 0.4 %; Lymphocytes # (auto) 1.09 K/uL (1.2-3.4); Lymphocytes % (auto) 22.9 %; Mean Corpuscular Hemoglobin 25.6 pg (25.0-34.0); Mean Corpuscular Hgb Conc 30.1 g/dL (32.0-36.0); Mean Corpuscular Volume 84.8 fL (80.0-100.0); Mean Platelet Volume 11.1 fL (9.4-12.4); Monocytes # (auto) 0.29 K/uL (0.11-0.59); Monocytes % (auto) 6.1 %; Neutrophils # (auto) 3.29 K/uL (1.40-6.50); Neutrophils % (auto) 68.9 %; Platelet Count 308 K/uL (130-400); RDW Coefficient of Variation 19.8 % (11.5-14.5); RDW Standard Deviation 61.3 fL (36.4-46.3); Red Blood Count 4.07 M/uL (4.70-6.10); White Blood Count 4.77 K/ul (4.8-10.8)
[2022-08-26 08:20] LABS: Anion Gap 5 (3-11); BUN Creatinine Ratio 54.1 (10-20); Blood Urea Nitrogen 20 mg/dl (6-23); Calcium 7.8 mg/dl (8.6-10.3); Carbon Dioxide 25 mmol/L (21-32); Chloride 111 mmol/L (98-107); Est GFR (African American) > 150.0 ml/min; Est GFR (Non-African American) 129.6 ml/min; Glucose 175 mg/dl (70-99(Fasting)); Potassium 3.8 mmol/L (3.5-5.1); Sodium 141 mmol/L (136-145)
[2022-08-26] MEDS: INSULIN ASPART PER UNIT CHARGE SC SCH ×4 (08:56→21:18)
[2022-08-26] MEDS: VANCOMYCIN HCL 1,000 MG in SODIUM CHLORIDE 0.9% 250 ML IV SCH ×3 (08:59→22:59)
[2022-08-26] MEDS ORDERED: LANTUS PER UNIT CHARGE SQ SCH (09:00)
[2022-08-26] MEDS: LANTUS PER UNIT CHARGE SQ SCH (10:32)
[2022-08-26] MEDS: cefTRIAXone SODIUM 2,000 MG in DEXTROSE 5% 50 ML IV SCH (10:39)
[2022-08-26] MEDS: carvediloL 12.5 MG TAB PO SCH ×2 (12:11→21:15)
[2022-08-26] MEDS: PANTOprazole 40 MG TAB PO SCH ×2 (12:11→21:19)
[2022-08-26] MEDS: MAGNESIUM OXIDE 400 MG TAB PO SCH (12:12)
[2022-08-26] MEDS: FOLIC ACID 1 MG TAB PO SCH (12:12)
[2022-08-26] MEDS: CLOPIDOGREL BISULFATE 75 MG TAB PO SCH (12:12)
[2022-08-26] MEDS: ENOXAPARIN 100 MG/1ML SYR SQ SCH ×2 (12:13→22:58)
[2022-08-26] MEDS: COLLAGENASE OINT 30 GM TUBE EXT SCH ×2 (12:14→21:20)
[2022-08-26] MEDS: POLYETHYLENE (MIRALAX) 17 GM PACK PO SCH (12:15)
[2022-08-26] MEDS: BACLOFEN 10 MG TAB PO SCH (12:22)
--- NOTE | 2022-08-26 13:20 | Hospitalist Progress Note ---
Date of Service August 26, 2022 Assessment & Plan (1) Anemia: Plan: per Dr. Eastman's notes with addendum: (1)Acute blood loss anemia, likely secondary to right thigh hematoma and left arm hematoma spontaneous, in the setting of Lovenox and Plavix use History of Recurrent DVT, and CVA Plan: Patient presenting from home with reported increased lethargy, taking Lovenox 120mg BID and Plavix As an outpatient, patient has been noted to have a downtrending hemoglobin (11.5 --> 8.0 --> 9.1 --> 8.9 on 07/27). Patient was started on iron replacement. 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 Colonoscopy was considered however patient was felt to not likely be able to tolerate the prep. In the ED, Hgb 5.9. Patient hemodynamically stable. CT abdomen/pelvis/angio: There is a large hematoma involving the medial aspect of the upper thigh measuring approximately 5.5 x 6.5 cm in axial dimension. Questionable heterogeneous density surrounding the right femur are concerning for second hematoma and measuring 5.7 x 5.5 cm in axial dimension. There is no evidence of active bleed. [facility] consulted: no surgery recommended. He was transfused 4 unit of packed RBC; hemoglobin improved to [address] scan of the thigh was done on 08/13; stable size of hematoma. Venous duplex of left arm done on 08/18 shows large complex left axillary fluid collection typical for hematoma. Business Analyst Sales Operations consulted: Dr. Richey- recommend to gradually start Lovenox- 40mg da joshua, then BID, then 80mg BID. Patient tolerated 2 days of Lovenox 80 mg twice daily; anti-Xa level was obtained on August 16; level was found to be 0.45. Discussion with hematology done again. Recommended to increase Lovenox to 100 mg twice daily and repeat anti-Xa level again. Repeat anti-Xa level was 0.6 which is within therapeutic range. Discussed with hematology again. Recommended to continue same doses. On the request of patient's regarding work-up for anemia; GI was informed and patient was planned for colonoscopy as inpatient on 08/19. However, further discussion with the ; she did not want patient to undergo colonoscopy preparation as she feels he is not at his baseline functional status and wants to do as outpatient. 08/25 Hemoglobin 10.1 No obvious acute bleeding noted Lovenox held today per recommendation of GEN gabbi, as bedside debridement performed Monitor hemoglobin 08/26 Hg stable- 10.4 no overt bleeding noted continue Lovenox 100mg BID monitor closely 2) Fever likely secondary to Sacral Decub Ulcer Infection Patient started to spike fever since 08/21. Possible source of infection include pneumonia, sacral decubitus ulcer, UTI, infected hematoma Chest x-ray shows pulm congestion; no infiltrate. Pro-Checo negative CT of right leg and left shoulder done with contrast to rule out infected hematoma; less likely infection. CT shoulder shows moderate pleural effusion and left basilar airspace disease. Blood culture obtained; no growth till date. Urine Cx negative. Continue vancomycin and ceftriaxone for now. Appreciate ID input. Sacral wound evaluated by surgery; recommend continue wound care. 08/25 Afebrile since the Blood culture: Negative Repeat urine culture: Negative Possible sources include: Left lung pneumonia-CAT scan ordered today Sacral decubitus ulcer Continue vancomycin plus ceftriaxone ID consulted-awaiting recommendations 08/26 CT chest: (+) L moderate pleural effusion will need Lasix once off Vanco (+) bedside debridement by Gen Surg 08/25 continue daily wound care continue Vancomycin + Ceftriaxone ID consult pending (3) Sacral decubitus ulcer, stage II; POA Patient had sacral decubital ulcer which developed within 72 hours of hospitalization. Wound care consulted. General surgery consulted for possible debridement; recommended trial of chemical debridement by wound care before considering surgical debridement. Evaluated by surgery on 08/23; recommend continued wound care. Wound care commendation appreciated. 08/25 Management per above (4) Elevated troponin: (5) CAD (coronary artery disease): Plan: Likely due to demand ischemia in the setting of profound anemia Continue beta-josé and statin. Plavix was also restarted. Troponin flat, 1100, 1300, 1000 EKG: No signs of acute ischemia or infarct Echo 45 to 45%, mild apical wall hypokinesis Cardiology service consulted-no further further interventions at this point Possible UTI Urine culture x 2: Coag Neg Staph discussed with Erica ID given Dapto x 2 days and completed oral doxycycline course. Hagan cath in place in setting of sacral decubital ulcer. (6) Type 2 diabetes mellitus: Plan: Hgb A1c 5.2 06/2022 Lantus 5 units in AM NovoLog per protocol Monitor BSG's closely (7) History of CVA (cerebrovascular accident): Plan: History of recurrent CVA despite DAPT and anticoagulation therapy Chronic right hemiplegia/left arm paralysis/mostly nonverbal/expressive aphasia management of Lovenox + PLavix per above. Also on a statin. (8) H/O deep venous thrombosis: Plan: History of breakthrough DVT while on warfarin and Eliquis therapy, now on therapeutic dose Lovenox per above (9) HTN (hypertension): Plan: Currently on Coreg. Lisinopril presently on hold. BP stable overall (10) DVT prophylaxis: Plan: on Lovenox BID per above Disposition lives with at home. PT/OT ordered. Plan to discharge to rehab when placement available. Admission and Anticipated Discharge Date Admission Date: August 09, 2022 Subjective ff up for fever, sacral decub wound, hematoma, etc seen resting in bed, sitting up awake, answers yes/no to questions, appropriately denies pain, SOB was coughing with eating/drinking overnight no other issues noted Review of Systems Review of Systems: all noted and negative except for above Physical Exam Physical Exam: General- awake, not in distress,breathing with no effort or accessory muscle use Eyes- anicteric Neck- no JVD Lungs- Left: decreased breath sounds at the bases Right: clear Heart- normal rate, regular rhythm; no murmurs Abdomen- normal bowel sounds, nondistended, soft,no tenderness Extremities- lower ext: no pretibial edema, no calf tenderness left upper ext: mild edema, no erythema/warmth/tenderness Neuro- alert, no new gross focal neurologic deficits Skin- warm & dry Results & Data Results & Data Vital Signs (Past 12 Hours) Vital Signs Temp Pulse Resp BP BP Pulse Ox O2 Del Method 08/26/22 11:40 36.7 C 81 16 141/73 H 97 Room Air 08/26/22 07:41 37 C 84 16 139/74 96 Room Air 08/26/22 07:03 80 18 93 Room Air 08/26/22 04:00 36.6 C 83 20 126/77 95 Room Air all noted and reviewed including below (1) Anemia Anemia type: unspecified type Qualified Code(s): D64.9 - Anemia, unspecified
[2022-08-26] MEDS: ACETAMINOPHEN 325 MG TAB PO PRN ×2 (17:35→21:19)
[2022-08-26] MEDS: ATORVASTATIN 40 MG TAB PO SCH (21:17)
[2022-08-26] MEDS: TAMSULOSIN HCL 0.4 MG CAP PO SCH (21:18)
[2022-08-27] MEDS: SODIUM CHLOR 7% 4 ML NEB NEB SCH ×2 (07:02→19:21)
[2022-08-27] MEDS: ALBUT/IPRATROP 3MG/0.5MG NEB 3 ML VIAL NEB SCH ×2 (07:02→19:21)
[2022-08-27 07:25] LABS: Basophils # (auto) 0.04 K/uL (0-0.2); Eosinophils # (auto) 0.11 K/uL (0-0.50); Eosinophils % (auto) 2.7 %; Hemoglobin 10.6 g/dl (14.0-18.0); Immature Granulocytes # (auto) 0.01 K/uL (0.01-0.20); Immature Granulocytes % (auto) 0.2 %; Lymphocytes # (auto) 1.09 K/uL (1.2-3.4); Lymphocytes % (auto) 26.4 %; Mean Corpuscular Hemoglobin 25.4 pg (25.0-34.0); Mean Corpuscular Hgb Conc 30.3 g/dL (32.0-36.0); Mean Corpuscular Volume 83.7 fL (80.0-100.0); Mean Platelet Volume 10.6 fL (9.4-12.4); Monocytes # (auto) 0.27 K/uL (0.11-0.59); Monocytes % (auto) 6.5 %; Neutrophils # (auto) 2.61 K/uL (1.40-6.50); Neutrophils % (auto) 63.2 %; Platelet Count 302 K/uL (130-400); RDW Coefficient of Variation 19.6 % (11.5-14.5); RDW Standard Deviation 60.1 fL (36.4-46.3); Red Blood Count 4.18 M/uL (4.70-6.10); White Blood Count 4.13 K/ul (4.8-10.8)
[2022-08-27 07:52] LABS: Anion Gap 4 (3-11); Blood Urea Nitrogen 18 mg/dl (6-23); Calcium 7.9 mg/dl (8.6-10.3); Carbon Dioxide 25 mmol/L (21-32); Chloride 111 mmol/L (98-107); Creatinine Clr Calc Pharmacy 220.8 ml/min; Est GFR (African American) > 150.0 ml/min; Est GFR (Non-African American) 131.1 ml/min; Glucose 156 mg/dl (70-99(Fasting)); Potassium 3.7 mmol/L (3.5-5.1); Sodium 140 mmol/L (136-145)
[2022-08-27] MEDS: cefTRIAXone SODIUM 2,000 MG in DEXTROSE 5% 50 ML IV SCH (08:22)
[2022-08-27] MEDS: LANTUS PER UNIT CHARGE SQ SCH (08:51)
[2022-08-27] MEDS: INSULIN ASPART PER UNIT CHARGE SC SCH ×4 (08:51→20:13)
[2022-08-27] MEDS: carvediloL 12.5 MG TAB PO SCH ×2 (08:52→20:12)
[2022-08-27] MEDS: COLLAGENASE OINT 30 GM TUBE EXT SCH ×2 (08:52→20:15)
[2022-08-27] MEDS: MAGNESIUM OXIDE 400 MG TAB PO SCH (08:52)
[2022-08-27] MEDS: FOLIC ACID 1 MG TAB PO SCH (08:52)
[2022-08-27] MEDS: PANTOprazole 40 MG TAB PO SCH ×2 (08:52→20:12)
[2022-08-27] MEDS: CLOPIDOGREL BISULFATE 75 MG TAB PO SCH (08:52)
[2022-08-27] MEDS: POLYETHYLENE (MIRALAX) 17 GM PACK PO SCH (08:53)
[2022-08-27] MEDS: VANCOMYCIN HCL 1,000 MG in SODIUM CHLORIDE 0.9% 250 ML IV SCH ×2 (09:19→16:36)
[2022-08-27] MEDS: BACLOFEN 10 MG TAB PO SCH (09:19)
[2022-08-27] MEDS: ACETAMINOPHEN 325 MG TAB PO PRN ×2 (10:59→20:13)
[2022-08-27] MEDS: ENOXAPARIN 100 MG/1ML SYR SQ SCH ×2 (13:04→23:28)
--- NOTE | 2022-08-27 14:11 | Hospitalist Progress Note ---
Date of Service August 27, 2022 Assessment & Plan (1) Hematoma of right thigh: Plan: (1)Acute blood loss anemia, likely secondary to right thigh hematoma and left arm hematoma spontaneous, in the setting of Lovenox and Plavix use History of Recurrent DVT, and CVA Plan: Patient presenting from home with reported increased lethargy, taking Lovenox 120mg BID and Plavix As an outpatient, patient has been noted to have a downtrending hemoglobin (11.5 --> 8.0 --> 9.1 --> 8.9 on 07/27). Patient was started on iron replacement. 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 Colonoscopy was considered however patient was felt to not likely be able to tolerate the prep. In the ED, Hgb 5.9. Patient hemodynamically stable. CT abdomen/pelvis/angio: There is a large hematoma involving the medial aspect of the upper thigh measuring approximately 5.5 x 6.5 cm in axial dimension. Questionable heterogeneous density surrounding the right femur are concerning for second hematoma and measuring 5.7 x 5.5 cm in axial dimension. There is no evidence of active bleed. [facility] consulted: no surgery recommended. He was transfused 4 unit of packed RBC; hemoglobin improved to [address] scan of the thigh was done on 08/13; stable size of hematoma. Venous duplex of left arm done on 08/18 shows large complex left axillary fluid collection typical for hematoma. Baker Apprentice consulted: Dr. Richey- recommend to gradually start Lovenox- 40mg daily, then BID, then 80mg BID. Patient tolerated 2 days of Lovenox 80 mg twice daily; anti-Xa level was obtained on August 16; level was found to be 0.45. Discussion with hematology done again. Recommended to increase Lovenox to 100 mg twice daily and repeat anti-Xa level again. Repeat anti-Xa level was 0.6 which is within therapeutic range. Discussed with hematology again. Recommended to continue same doses. On the request of patient's regarding work-up for anemia; GI was informed and patient was planned for colonoscopy as inpatient on 08/19. However, further discussion with the ; she did not want patient to undergo colonoscopy preparation as she feels he is not at his baseline functional status and wants to do as outpatient. 08/25 Hemoglobin 10.1 No obvious acute bleeding noted Lovenox held today per recommendation of GEN surge, as bedside debridement performed Monitor hemoglobin 08/26 Hg stable- 10.4 no overt bleeding noted continue Lovenox 100mg BID monitor closely 2) Fever likely secondary to Sacral Decub Ulcer Infection Patient started to spike fever since 08/21. Possible source of infection include pneumonia, sacral decubitus ulcer, UTI, infected hematoma Chest x-ray shows pulm congestion; no infiltrate. Pro-Checo negative CT of right leg and left shoulder done with contrast to rule out infected hematoma; less likely infection. CT shoulder shows moderate pleural effusion and left basilar airspace disease. Blood culture obtained; no growth till date. Urine Cx negative. Continue vancomycin and ceftriaxone for now. Appreciate ID input. Sacral wound evaluated by surgery; recommend continue wound care. 08/25 Afebrile since the Blood culture: Negative Repeat urine culture: Negative Possible sources include: Left lung pneumonia-CAT scan ordered today Sacral decubitus ulcer Continue vancomycin plus ceftriaxone ID consulted-awaiting recommendations 08/26 CT chest: (+) L moderate pleural effusion will need Lasix once off Vanco (+) bedside debridement by Gen Surg 08/25 continue daily wound care continue Vancomycin + Ceftriaxone ID consult pending 08/27 had 1 low grade fever yesterday clinically appear improving continue Vanco + Ceftri will discuss with ID daily wound care appreciate Gen surg and wound care service eval will start Lasix once off Vanco (3) Sacral decubitus ulcer, stage II; POA Patient had sacral decubital ulcer which developed within 72 hours of hospitalization. Wound care consulted. General surgery consulted for possible debridement; recommended trial of chemical debridement by wound care before considering surgical debridement. Evaluated by surgery on 08/23; recommend continued wound care. Wound care commendation appreciated. 08/27 Management per above (4) Elevated troponin: (5) CAD (coronary artery disease): Plan: Likely due to demand ischemia in the setting of profound anemia Continue beta-josé and statin. Plavix was also restarted. Troponin flat, 1100, 1300, 1000 EKG: No signs of acute ischemia or infarct Echo 45 to 45%, mild apical wall hypokinesis Cardiology service consulted-no further further interventions at this point Possible UTI Urine culture x 2: Coag Neg Staph discussed with Erica ID given Dapto x 2 days and completed oral doxycycline course. Hagan cath in place in setting of sacral decubital ulcer. (6) Type 2 diabetes mellitus: Plan: Hgb A1c 5.2 06/2022 Lantus 5 units in AM NovoLog per protocol Monitor BSG's closely (7) History of CVA (cerebrovascular accident): Plan: History of recurrent CVA despite DAPT and anticoagulation therapy Chronic right hemiplegia/left arm paralysis/mostly nonverbal/expressive aphasia management of Lovenox + PLavix per above. - Also on a statin. (8) H/O deep venous thrombosis: Plan: History of breakthrough DVT while on warfarin and Eliquis therapy, now on therapeutic dose Lovenox per above (9) HTN (hypertension): Plan: Currently on Coreg. Lisinopril presently on hold. BP stable overall (10) DVT prophylaxis: Plan: on Lovenox BID per above Disposition lives with at home. PT/OT ordered. Plan to discharge to rehab when placement available. plan of care discussed with patient's in detail and at length all questions answered she is understanding, agreeable, comfortable with the plan of care Admission and Anticipated Discharge Date Admission Date: August 09, 2022 Subjective ff up for hematoma on Lovenox, infected sacral decubitus ulcer, etc seen resting in bed, comfortable awake, answers yes/no to questions patient's Ms Downey at bedside patient says no when asked if having pain, shortness of breath appetite is good no other symptoms Review of Systems Review of Systems: all noted and negative except for above Physical Exam Physical Exam: General- awake, not in distress,breathing with no effort or accessory muscle use Eyes- anicteric Neck- no JVD Lungs-decreased BS L lower lobe,otherwise clear BS bilaterally, no rales/wheezes Heart- normal rate, regular rhythm; no murmurs Abdomen- normal bowel sounds, nondistended, soft, nontender Extremities- MIld LUE edema, no erythema/warmth/tenderness no pretibial edema, no calf tenderness Neuro- awake, no new gross focal neurologic deficits Skin- warm & dry Results & Data Results & Data Vital Signs (Past 12 Hours) Vital Signs Temp Pulse Pulse Resp BP Pulse Ox O2 Del Method 08/27/22 13:06 Room Air 08/27/22 11:06 36.6 C 90 21 157/80 H 97 Room Air 08/27/22 08:02 36.8 C 84 19 161/84 H 96 Room Air 08/27/22 07:37 77 08/27/22 07:02 81 18 96 Room Air 08/27/22 04:00 36.8 C 79 22 145/81 H 98 Room Air all noted and reviewed including below
--- NOTE | 2022-08-27 16:54 | Communication Note ---
Date of Service: August 27, 2022 Wound was evaluated at the beside today by the surgeon. Dressing changed performed as per wound care's orders with santyl/gauze/optifoam. We will follow up with patient on Tuesday08/30/22 for possible bedside debridement. Please hold Lovenox the midnight before procedure and the Noon dose on Tuesday of procedure. Will follow peripherally over the weekend, but call with any questions/concerns.
[2022-08-27] MEDS: DOXYCYCLINE HYCLATE 100 MG CAP PO SCH (20:12)
[2022-08-27] MEDS: TAMSULOSIN HCL 0.4 MG CAP PO SCH (20:13)
[2022-08-27] MEDS: ATORVASTATIN 40 MG TAB PO SCH (20:13)
[2022-08-28] MEDS ORDERED: VANCOMYCIN LEVEL ONE (07:00)
[2022-08-28] MEDS: ALBUT/IPRATROP 3MG/0.5MG NEB 3 ML VIAL NEB SCH ×2 (07:56→19:41)
[2022-08-28] MEDS: SODIUM CHLOR 7% 4 ML NEB NEB SCH ×2 (07:57→19:42)
[2022-08-28 07:58] LABS: Basophils # (auto) 0.04 K/uL (0-0.2); Basophils % (auto) 0.8 %; Hematocrit (blood only) 34.3 % (42.0-52.0); Hemoglobin 10.2 g/dl (14.0-18.0); Immature Granulocytes # (auto) 0.02 K/uL (0.01-0.20); Immature Granulocytes % (auto) 0.4 %; Lymphocytes # (auto) 1.17 K/uL (1.2-3.4); Lymphocytes % (auto) 23.2 %; Mean Corpuscular Hemoglobin 25.3 pg (25.0-34.0); Mean Corpuscular Hgb Conc 29.7 g/dL (32.0-36.0); Mean Corpuscular Volume 85.1 fL (80.0-100.0); Mean Platelet Volume 10.2 fL (9.4-12.4); Monocytes # (auto) 0.36 K/uL (0.11-0.59); Monocytes % (auto) 7.1 %; Neutrophils # (auto) 3.35 K/uL (1.40-6.50); Neutrophils % (auto) 66.5 %; Platelet Count 274 K/uL (130-400); RDW Coefficient of Variation 19.2 % (11.5-14.5); RDW Standard Deviation 60.3 fL (36.4-46.3); Red Blood Count 4.03 M/uL (4.70-6.10); White Blood Count 5.04 K/ul (4.8-10.8)
[2022-08-28 08:19] LABS: Anion Gap 5 (3-11); Calcium 7.5 mg/dl (8.6-10.3); Carbon Dioxide 23 mmol/L (21-32); Chloride 110 mmol/L (98-107); Potassium 3.5 mmol/L (3.5-5.1); Sodium 138 mmol/L (136-145)
[2022-08-28 08:24] LABS: Blood Urea Nitrogen 17 mg/dl (6-23); Creatinine Clr Calc Pharmacy 203.3 ml/min; Est GFR (African American) > 150.0 ml/min; Est GFR (Non-African American) 134.2 ml/min; Glucose 153 mg/dl (70-99(Fasting))
[2022-08-28] MEDS: LANTUS PER UNIT CHARGE SQ SCH (08:31)
[2022-08-28] MEDS: INSULIN ASPART PER UNIT CHARGE SC SCH ×4 (08:31→20:23)
[2022-08-28] MEDS: carvediloL 12.5 MG TAB PO SCH ×2 (08:33→20:22)
[2022-08-28] MEDS: DOXYCYCLINE HYCLATE 100 MG CAP PO SCH ×2 (08:33→20:23)
[2022-08-28] MEDS: ACETAMINOPHEN 325 MG TAB PO PRN ×2 (08:33→18:27)
[2022-08-28] MEDS: PANTOprazole 40 MG TAB PO SCH ×2 (08:33→20:22)
[2022-08-28] MEDS: FOLIC ACID 1 MG TAB PO SCH (08:33)
[2022-08-28] MEDS: CLOPIDOGREL BISULFATE 75 MG TAB PO SCH (08:34)
[2022-08-28] MEDS: BACLOFEN 10 MG TAB PO SCH (08:34)
[2022-08-28] MEDS: COLLAGENASE OINT 30 GM TUBE EXT SCH ×2 (08:34→20:24)
[2022-08-28] MEDS: cefTRIAXone SODIUM 2,000 MG in DEXTROSE 5% 50 ML IV SCH (08:34)
[2022-08-28] MEDS: POLYETHYLENE (MIRALAX) 17 GM PACK PO SCH (08:35)
[2022-08-28] MEDS: MAGNESIUM OXIDE 400 MG TAB PO SCH (12:20)
[2022-08-28] MEDS: ENOXAPARIN 100 MG/1ML SYR SQ SCH (12:21)
--- NOTE | 2022-08-28 14:51 | Hospitalist Progress Note ---
Date of Service August 28, 2022 Assessment & Plan (1) Hematoma of right thigh: Plan: (1)Acute blood loss anemia, likely secondary to right thigh hematoma and left arm hematoma spontaneous, in the setting of Lovenox and Plavix use History of Recurrent DVT, and CVA Plan: Patient presenting from home with reported increased lethargy, taking Lovenox 120mg BID and Plavix As an outpatient, patient has been noted to have a downtrending hemoglobin (11.5 --> 8.0 --> 9.1 --> 8.9 on 07/27). Patient was started on iron replacement. 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 Colonoscopy was considered however patient was felt to not likely be able to tolerate the prep. In the ED, Hgb 5.9. Patient hemodynamically stable. CT abdomen/pelvis/angio: There is a large hematoma involving the medial aspect of the upper thigh measuring approximately 5.5 x 6.5 cm in axial dimension. Questionable heterogeneous density surrounding the right femur are concerning for second hematoma and measuring 5.7 x 5.5 cm in axial dimension. There is no evidence of active bleed. [facility] consulted: no surgery recommended. He was transfused 4 unit of packed RBC; hemoglobin improved to [address] scan of the thigh was done on 08/13; stable size of hematoma. Venous duplex of left arm done on 08/18 shows large complex left axillary fluid collection typical for hematoma. Electronics Commodity Manager consulted: Dr. Richey- recommend to gradually start Lovenox- 40mg daily, then BID, then 80mg BID. Patient tolerated 2 days of Lovenox 80 mg twice daily; anti-Xa level was obtained on August 16; level was found to be 0.45. Discussion with hematology done again. Recommended to increase Lovenox to 100 mg twice daily and repeat anti-Xa level again. Repeat anti-Xa level was 0.6 which is within therapeutic range. Discussed with hematology again. Recommended to continue same doses. On the request of patient's regarding work-up for anemia; GI was informed and patient was planned for colonoscopy as inpatient on 08/19. However, further discussion with the ; she did not want patient to undergo colonoscopy preparation as she feels he is not at his baseline functional status and wants to do as outpatient. 08/28 Hg remains stable at ~10 no signs of active bleeding continue Lovenox BID 2) Fever likely secondary to Sacral Decub Ulcer Infection Patient started to spike fever since 08/21. Possible source of infection include pneumonia, sacral decubitus ulcer, UTI, infected hematoma Chest x-ray shows pulm congestion; no infiltrate. Pro-Checo negative CT of right leg and left shoulder done with contrast to rule out infected hematoma; less likely infection. CT shoulder shows moderate pleural effusion and left basilar airspace disease. Blood culture obtained; no growth till date. Urine Cx negative. Continue vancomycin and ceftriaxone for now. Appreciate ID input. Sacral wound evaluated by surgery; recommend continue wound care. 08/25 Afebrile since the Blood culture: Negative Repeat urine culture: Negative Possible sources include: Left lung pneumonia-CAT scan ordered today Sacral decubitus ulcer Continue vancomycin plus ceftriaxone ID consulted-awaiting recommendations 08/26 CT chest: (+) L moderate pleural effusion will need Lasix once off Vanco (+) bedside debridement by Gen Surg 08/25 continue daily wound care continue Vancomycin + Ceftriaxone ID consult pending 08/27 had 1 low grade fever yesterday clinically appear improving continue Vanco + Ceftri will discuss with ID daily wound care appreciate Gen surg and wound care service eval will start Lasix once off Vanco 08/28 remains afebrile wounds appears to be healing d/c Vanc, change to Doxy continue Ceftri Left sided pleural effusion on room air likely from blood transfusion, IV abx lasix 20mg IV daily x 2 days repeat CXR Tuesday monitor renal function (3) Sacral decubitus ulcer, stage II; POA Patient had sacral decubital ulcer which developed within 72 hours of hospitalization. Wound care consulted. General surgery consulted for possible debridement; recommended trial of chemical debridement by wound care before considering surgical debridement. Evaluated by surgery on 08/23; recommend continued wound care. Wound care commendation appreciated. 08/28 Management per above (4) Elevated troponin: (5) CAD (coronary artery disease): Plan: Likely due to demand ischemia in the setting of profound anemia Continue beta-josé and statin. Plavix was also restarted. Troponin flat, 1100, 1300, 1000 EKG: No signs of acute ischemia or infarct Echo 45 to 45%, mild apical wall hypokinesis Cardiology service consulted-no further further interventions at this point Possible UTI Urine culture x 2: [place] discussed with Erica GIBBS given Dapto x 2 days and completed oral doxycycline course. Hagan cath in place in setting of sacral decubital ulcer. (6) Type 2 diabetes mellitus: Plan: Hgb A1c 5.2 06/2022 Lantus 5 units in AM NovoLog per protocol Monitor BSG's closely (7) History of CVA (cerebrovascular accident): Plan: History of recurrent CVA despite DAPT and anticoagulation therapy Chronic right hemiplegia/left arm paralysis/mostly nonverbal/expressive aphasia management of Lovenox + PLavix per above. - Also on a statin. (8) H/O deep venous thrombosis: Plan: History of breakthrough DVT while on warfarin and Eliquis therapy, now on therapeutic dose Lovenox per above (9) HTN (hypertension): Plan: Currently on Coreg. Lisinopril presently on hold. BP stable overall (10) DVT prophylaxis: Plan: on Lovenox BID per above Disposition lives with at home. PT/OT ordered. Plan to discharge to rehab when placeme nt available. plan of care discussed with patient's in detail and at length all questions answered she is understanding, agreeable, comfortable with the plan of care Admission and Anticipated Discharge Date Admission Date: August 09, 2022 Subjective ff up for hematoma, fever, sacral decub ulcer, etc seen resting in bed, comfortable Ms Downey at bedside alert, responds yes/no to questions no pain, shortness of breath appetite good no signs of bleeding no signs of distress no other issues per RN, patient's Review of Systems Review of Systems: all noted and negative except for above Physical Exam Physical Exam: General- not in distress, no effort/acc muscle use Eyes- anicteric Neck- no JVD Lungs- decreased BS left, otherwise clear BS bilaterally, no rales/wheezes Heart- normal rate, regular rhythm; no murmurs Abdomen- normal bowel sounds, nondistended, soft, nontender Extremities- no pretibial edema, no calf tenderness LUE: mild edema RLE: no edema Back: sacral decub ulcer- seems to healing, surrounding erythema improving, tissue- more pink Neuro- alert, ; no new gross focal neurologic deficits Skin- warm & dry Results & Data Results & Data Vital Signs (Past 12 Hours) Vital Signs Temp Pulse Pulse Resp BP BP Pulse Ox 08/28/22 12:20 36.6 C 74 20 116/51 L 94 08/28/22 11:39 08/28/22 08:09 36.9 C 84 20 116/47 L 100 08/28/22 07:57 82 18 97 08/28/22 07:07 81 08/28/22 04:00 37.2 C 81 22 114/46 L 96 O2 Del Method 08/28/22 12:20 Room Air 08/28/22 11:39 Room Air 08/28/22 08:09 Room Air 08/28/22 07:57 Room Air 08/28/22 07:07 08/28/22 04:00 Room Air all noted and reviewed including below
[2022-08-28] MEDS: TAMSULOSIN HCL 0.4 MG CAP PO SCH (20:23)
[2022-08-28] MEDS: ATORVASTATIN 40 MG TAB PO SCH (20:23)
[2022-08-29] MEDS: ENOXAPARIN 100 MG/1ML SYR SQ SCH ×2 (00:21→12:34)
[2022-08-29] MEDS: ACETAMINOPHEN 325 MG TAB PO PRN (05:46)
[2022-08-29] MEDS: SODIUM CHLOR 7% 4 ML NEB NEB SCH ×2 (07:02→19:06)
[2022-08-29] MEDS: ALBUT/IPRATROP 3MG/0.5MG NEB 3 ML VIAL NEB SCH ×2 (07:02→19:06)
[2022-08-29 07:47] LABS: Basophils # (auto) 0.02 K/uL (0-0.2); Basophils % (auto) 0.4 %; Eosinophils # (auto) 0.11 K/uL (0-0.50); Eosinophils % (auto) 2.4 %; Hematocrit (blood only) 33.6 % (42.0-52.0); Hemoglobin 10.3 g/dl (14.0-18.0); Immature Granulocytes # (auto) 0.01 K/uL (0.01-0.20); Immature Granulocytes % (auto) 0.2 %; Lymphocytes # (auto) 1.23 K/uL (1.2-3.4); Lymphocytes % (auto) 26.7 %; Mean Corpuscular Hemoglobin 25.5 pg (25.0-34.0); Mean Corpuscular Hgb Conc 30.7 g/dL (32.0-36.0); Mean Corpuscular Volume 83.2 fL (80.0-100.0); Mean Platelet Volume 10.4 fL (9.4-12.4); Monocytes # (auto) 0.34 K/uL (0.11-0.59); Monocytes % (auto) 7.4 %; Neutrophils # (auto) 2.89 K/uL (1.40-6.50); Neutrophils % (auto) 62.9 %; Platelet Count 274 K/uL (130-400); RDW Coefficient of Variation 19.2 % (11.5-14.5); RDW Standard Deviation 58.3 fL (36.4-46.3); Red Blood Count 4.04 M/uL (4.70-6.10)
[2022-08-29 08:03] LABS: Anion Gap 4 (3-11); BUN Creatinine Ratio 47.1 (10-20); Blood Urea Nitrogen 16 mg/dl (6-23); Calcium 7.7 mg/dl (8.6-10.3); Carbon Dioxide 26 mmol/L (21-32); Chloride 108 mmol/L (98-107); Creatinine Clr Calc Pharmacy 233.8 ml/min; Est GFR (African American) > 150.0 ml/min; Est GFR (Non-African American) 134.2 ml/min; Glucose 156 mg/dl (70-99(Fasting)); Potassium 3.7 mmol/L (3.5-5.1); Sodium 138 mmol/L (136-145)
[2022-08-29] MEDS ORDERED: FUROSEMIDE INJ 20 MG/2 ML VIAL IV ONE (08:22)
[2022-08-29] MEDS: INSULIN ASPART PER UNIT CHARGE SC SCH ×4 (08:43→21:14)
[2022-08-29] MEDS: DOXYCYCLINE HYCLATE 100 MG CAP PO SCH ×2 (08:44→21:13)
[2022-08-29] MEDS: CLOPIDOGREL BISULFATE 75 MG TAB PO SCH (08:44)
[2022-08-29] MEDS: cefTRIAXone SODIUM 2,000 MG in DEXTROSE 5% 50 ML IV SCH (08:44)
[2022-08-29] MEDS: FOLIC ACID 1 MG TAB PO SCH (08:44)
[2022-08-29] MEDS: BACLOFEN 10 MG TAB PO SCH (08:44)
[2022-08-29] MEDS: carvediloL 12.5 MG TAB PO SCH ×2 (08:44→21:12)
[2022-08-29] MEDS: COLLAGENASE OINT 30 GM TUBE EXT SCH ×2 (08:44→21:45)
[2022-08-29] MEDS: LANTUS PER UNIT CHARGE SQ SCH (08:44)
[2022-08-29] MEDS: ADVANCED PROBIOTIC 1250 MG CAPSULE PO SCH (08:45)
[2022-08-29] MEDS: PANTOprazole 40 MG TAB PO SCH ×2 (08:45→21:13)
[2022-08-29] MEDS: POLYETHYLENE (MIRALAX) 17 GM PACK PO SCH (08:45)
--- NOTE | 2022-08-29 11:52 | Hospitalist Progress Note ---
Date of Service August 29, 2022 Assessment & Plan (1) Hematoma of right thigh: Plan: (1)Acute blood loss anemia, likely secondary to right thigh hematoma and left arm hematoma spontaneous, in the setting of Lovenox and Plavix use History of Recurrent DVT, and CVA Plan: Patient presenting from home with reported increased lethargy, taking Lovenox 120mg BID and Plavix As an outpatient, patient has been noted to have a downtrending hemoglobin (11.5 --> 8.0 --> 9.1 --> 8.9 on 07/27). Patient was started on iron replacement. 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 Colonoscopy was considered however patient was felt to not likely be able to tolerate the prep. In the ED, Hgb 5.9. Patient hemodynamically stable. CT abdomen/pelvis/angio: There is a large hematoma involving the medial aspect of the upper thigh measuring approximately 5.5 x 6.5 cm in axial dimension. Questionable heterogeneous density surrounding the right femur are concerning for second hematoma and measuring 5.7 x 5.5 cm in axial dimension. There is no evidence of active bleed. [facility] consulted: no surgery recommended. He was transfused 4 unit of packed RBC; hemoglobin improved to [address] scan of the thigh was done on 08/13; stable size of hematoma. Venous duplex of left arm done on 08/18 shows large complex left axillary fluid collection typical for hematoma. [facility] consulted: Dr. Richey- recommend to gradually start Lovenox- 40mg daily, then BID, then 80mg BID. Patient tolerated 2 days of Lovenox 80 mg twice daily; anti-Xa level was obtained on August 16; level was found to be 0.45. Discussion with hematology done again. Recommended to increase Lovenox to 100 mg twice daily and repeat anti-Xa level again. Repeat anti-Xa level was 0.6 which is within therapeutic range. Discussed with hematology again. Recommended to continue same doses. On the request of patient's regarding work-up for anemia; GI was informed and patient was planned for colonoscopy as inpatient on 08/19. However, further discussion with the ; she did not want patient to undergo colonoscopy preparation as she feels he is not at his baseline functional status and wants to do as outpatient. 08/29 Hg remains stable at ~10 no signs of active bleeding continue Lovenox BID 2) Fever likely secondary to Sacral Decub Ulcer Infection Patient started to spike fever since 08/21. Possible source of infection include pneumonia, sacral decubitus ulcer, UTI, infected hematoma Chest x-ray shows pulm congestion; no infiltrate. Pro-Checo negative CT of right leg and left shoulder done with contrast to rule out infected hematoma; less likely infection. CT shoulder shows moderate pleural effusion and left basilar airspace disease. Blood culture obtained; no growth till date. Urine Cx negative. Continue vancomycin and ceftriaxone for now. Appreciate ID input. Sacral wound evaluated by surgery; recommend continue wound care. 08/25 Afebrile since the Blood culture: Negative Repeat urine culture: Negative Possible sources include: Left lung pneumonia-CAT scan ordered today Sacral decubitus ulcer Continue vancomycin plus ceftriaxone ID consulted-awaiting recommendations 08/26 CT chest: (+) L moderate pleural effusion will need Lasix once off Vanco (+) bedside debridement by Gen Surg 08/25 continue daily wound care continue Vancomycin + Ceftriaxone ID consult pending 08/27 had 1 low grade fever yesterday clinically appear improving continue Vanco + Ceftri will discuss with ID daily wound care appreciate Gen surg and wound care service eval will start Lasix once off Vanco 08/28 remains afebrile wounds appears to be healing d/c Vanc, change to Doxy continue Ceftri 08/29 remains stable, afebrile continue Doxy + Ceftri on probiotics Left sided pleural effusion on room air likely from blood transfusion, IV abx lasix 20mg IV daily x 2 days repeat CXR Tuesday monitor renal function 08/29 Lasix 20mg IV today repeat CXR tomorrow (3) Sacral decubitus ulcer, stage II; POA Patient had sacral decubital ulcer which developed within 72 hours of hospitalization. Wound care consulted. General surgery consulted for possible debridement; recommended trial of chemical debridement by wound care before considering surgical debridement. Evaluated by surgery on 08/23; recommend continued wound care. Wound care commendation appreciated. 08/29 Management per above (4) Elevated troponin: (5) CAD (coronary artery disease): Plan: Likely due to demand ischemia in the setting of profound anemia Continue beta-josé and statin. Plavix was also restarted. Troponin flat, 1100, 1300, 1000 EKG: No signs of acute ischemia or infarct Echo 45 to 45%, mild apical wall hypokinesis Cardiology service consulted-no further further interventions at this point Possible UTI Urine culture x 2: Gabbi Woods discussed with Erica GIBBS given Dapto x 2 days and completed oral doxycycline course. Hagan cath in place in setting of sacral decubital ulcer. (6) Type 2 diabetes mellitus: Plan: Hgb A1c 5.2 06/2022 Lantus 5 units in AM NovoLog per protocol Monitor BSG's closely (7) History of CVA (cerebrovascular accident): Plan: History of recurrent CVA despite DAPT and anticoagulation therapy Chronic right hemiplegia/left arm paralysis/mostly nonverbal/expressive aphasia management of Lovenox + PLavix per above. - Also on a statin. (8) H/O deep venous thrombosis: Plan: History of breakthrough DVT while on warfarin and Eliquis therapy, now on therapeutic dose Lovenox per above (9) HTN (hypertension): Plan: Currently on Coreg. Lisinopril presently on hold. BP stable overall (10) DVT prophylaxis: Plan: on Lovenox BID per above Disposition lives with at home. PT/OT ordered. Plan to discharge to rehab when placement available. plan of care discussed with patient's in detail and at length all questions answered she is understanding, agreeable, comfortable with the plan of care Admission and Anticipated Discharge Date Admission Date: August 09, 2022 Subjective ff up for fever, sacral decub ulcer, etc seen resting in bed, comfortable awake, answers yes/no to questions denies pain, SOB no signs of bleeding tolerating diet well per staff patient's at bedside no other issues noted Review of Systems Review of Systems: all noted and negative except for above Physical Exam Physical Exam: General- awake, not in distress Eyes- anicteric Neck- no JVD Lungs- decreased BS r base clear on the left Heart- normal rate, regular rhythm; no murmurs Abdomen- normal bowel sounds, nondistended, soft, nontender Extremities- mild edema LUE Neuro- no new gross focal neurologic deficits Skin- warm & dry Results & Data Results & Data Vital Signs (Past 12 Hours) Vital Signs Temp Pulse Pulse Resp BP Pulse Ox O2 Del Method 08/29/22 08:12 36.9 C 85 18 124/69 97 Room Air 08/29/22 07:02 84 18 95 Room Air 08/29/22 06:59 82 08/29/22 03:01 37.1 C 87 18 133/68 94 Room Air all noted and reviewed including below
[2022-08-29] MEDS: ACETAMINOPHEN 325 MG TAB PO SCH ×3 (12:34→21:13)
[2022-08-29] MEDS: MAGNESIUM OXIDE 400 MG TAB PO SCH (12:34)
[2022-08-29] MEDS: TAMSULOSIN HCL 0.4 MG CAP PO SCH (21:13)
[2022-08-29] MEDS: ATORVASTATIN 40 MG TAB PO SCH (21:13)
[2022-08-30] MEDS: ENOXAPARIN 100 MG/1ML SYR SQ SCH ×2 (00:31→23:03)
--- NOTE | 2022-08-30 08:29 | XRay Report ---
XR chest 1V portable HISTORY: ff up left pleural effusion COMPARISON: Chest CT 08/25/2022. FINDINGS: There are low lung volumes. No pneumothorax. Small bilateral pleural effusions persist. Manuela ear density left lung base is also unchanged and favor subsegmental atelectasis. The upper lung zones remain clear. No evidence for pulmonary edema. The heart is mildly enlarged. There are poststernotom y changes. Heterotopic ossification again noted overlying the right scapula. IMPRESSION: No change in the small bilateral pleural effusions. ACT 112: Negative or not required by law. Electronically signed by: Chris Bowens M.D. 08/30/2022 8:27 AM
[2022-08-30] MEDS: SODIUM CHLOR 7% 4 ML NEB NEB SCH ×2 (08:35→20:20)
[2022-08-30] MEDS: ALBUT/IPRATROP 3MG/0.5MG NEB 3 ML VIAL NEB SCH ×2 (08:35→20:20)
[2022-08-30] MEDS: ACETAMINOPHEN 325 MG TAB PO SCH ×4 (08:56→21:18)
[2022-08-30] MEDS: CLOPIDOGREL BISULFATE 75 MG TAB PO SCH (08:57)
[2022-08-30] MEDS: carvediloL 12.5 MG TAB PO SCH ×2 (08:57→21:19)
[2022-08-30] MEDS: COLLAGENASE OINT 30 GM TUBE EXT SCH ×2 (08:58→21:19)
[2022-08-30] MEDS: DOXYCYCLINE HYCLATE 100 MG CAP PO SCH ×2 (08:59→21:20)
[2022-08-30] MEDS: ADVANCED PROBIOTIC 1250 MG CAPSULE PO SCH (08:59)
[2022-08-30] MEDS: FOLIC ACID 1 MG TAB PO SCH (08:59)
[2022-08-30] MEDS: PANTOprazole 40 MG TAB PO SCH ×2 (08:59→21:20)
[2022-08-30] MEDS: LANTUS PER UNIT CHARGE SQ SCH (09:11)
[2022-08-30] MEDS: INSULIN ASPART PER UNIT CHARGE SC SCH ×4 (09:11→21:18)
[2022-08-30] MEDS: cefTRIAXone SODIUM 2,000 MG in DEXTROSE 5% 50 ML IV SCH (09:13)
[2022-08-30 09:49] LABS: Basophils # (auto) 0.02 K/uL (0-0.2); Basophils % (auto) 0.3 %; Eosinophils # (auto) 0.07 K/uL (0-0.50); Eosinophils % (auto) 1.2 %; Hemoglobin 11.5 g/dl (14.0-18.0); Immature Granulocytes # (auto) 0.03 K/uL (0.01-0.20); Immature Granulocytes % (auto) 0.5 %; Lymphocytes # (auto) 1.47 K/uL (1.2-3.4); Lymphocytes % (auto) 25.4 %; Mean Corpuscular Hemoglobin 25.3 pg (25.0-34.0); Mean Corpuscular Hgb Conc 31.1 g/dL (32.0-36.0); Mean Corpuscular Volume 81.5 fL (80.0-100.0); Mean Platelet Volume 10.7 fL (9.4-12.4); Monocytes # (auto) 0.43 K/uL (0.11-0.59); Monocytes % (auto) 7.4 %; Neutrophils # (auto) 3.76 K/uL (1.40-6.50); Neutrophils % (auto) 65.2 %; Platelet Count 326 K/uL (130-400); RDW Coefficient of Variation 19.2 % (11.5-14.5); RDW Standard Deviation 56.9 fL (36.4-46.3); Red Blood Count 4.54 M/uL (4.70-6.10); White Blood Count 5.78 K/ul (4.8-10.8)
[2022-08-30] MEDS: BACLOFEN 10 MG TAB PO SCH (10:02)
[2022-08-30] MEDS: POLYETHYLENE (MIRALAX) 17 GM PACK PO SCH (10:02)
[2022-08-30 10:09] LABS: Anion Gap 5 (3-11); BUN Creatinine Ratio 41.7 (10-20); Blood Urea Nitrogen 15 mg/dl (6-23); Calcium 8.1 mg/dl (8.6-10.3); Carbon Dioxide 27 mmol/L (21-32); Chloride 105 mmol/L (98-107); Creatinine Clr Calc Pharmacy 220.8 ml/min; Est GFR (African American) > 150.0 ml/min; Est GFR (Non-African American) 131.1 ml/min; Glucose 185 mg/dl (70-99(Fasting)); Potassium 3.6 mmol/L (3.5-5.1); Sodium 137 mmol/L (136-145)
[2022-08-30] MEDS ORDERED: FUROSEMIDE INJ 20 MG/2 ML VIAL IV ONE (10:25)
--- NOTE | 2022-08-30 10:28 | Hospitalist Progress Note ---
Date of Service August 30, 2022 Assessment & Plan (1) Hematoma of right thigh: Plan: (1)Acute blood loss anemia, likely secondary to right thigh hematoma and left arm hematoma spontaneous, in the setting of Lovenox and Plavix use History of Recurrent DVT, and CVA Plan: Patient presenting from home with reported increased lethargy, taking Lovenox 120mg BID and Plavix As an outpatient, patient has been noted to have a downtrending hemoglobin (11.5 --> 8.0 --> 9.1 --> 8.9 on 07/27). Patient was started on iron replacement. 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 Colonoscopy was considered however patient was felt to not likely be able to tolerate the prep. In the ED, Hgb 5.9. Patient hemodynamically stable. CT abdomen/pelvis/angio: There is a large hematoma involving the medial aspect of the upper thigh measuring approximately 5.5 x 6.5 cm in axial dimension. Questionable heterogeneous density surrounding the right femur are concerning for second hematoma and measuring 5.7 x 5.5 cm in axial dimension. There is no evidence of active bleed. [facility] consulted: no surgery recommended. He was transfused 4 unit of packed RBC; hemoglobin improved to [address] scan of the thigh was done on 08/13; stable size of hematoma. Venous duplex of left arm done on 08/18 shows large complex left axillary fluid collection typical for hematoma. Underwriting Specialist consulted: Dr. Richey- recommend to gradually start Lovenox- 40mg daily, then BID, then 80mg BID. Patient tolerated 2 days of Lovenox 80 mg twice daily; anti-Xa level was obtained on August 16; level was found to be 0.45. Discussion with hematology done again. Recommended to increase Lovenox to 100 mg twice daily and repeat anti-Xa level again. Repeat anti-Xa level was 0.6 which is within therapeutic range. Discussed with hematology again. Recommended to continue same doses. On the request of patient's regarding work-up for anemia; GI was informed and patient was planned for colonoscopy as inpatient on 08/19. However, further discussion with the ; she did not want patient to undergo colonoscopy preparation as she feels he is not at his baseline functional status and wants to do as outpatient. 08/30 Hg remains stable at ~10 no signs of active bleeding hold Lovenox BID for debridement of sacral decub ulcer today 2) Fever likely secondary to Sacral Decub Ulcer Infection Patient started to spike fever since 08/21. Possible source of infection include pneumonia, sacral decubitus ulcer, UTI, infected hematoma Chest x-ray shows pulm congestion; no infiltrate. Pro-Checo negative CT of right leg and left shoulder done with contrast to rule out infected hematoma; less likely infection. CT shoulder shows moderate pleural effusion and left basilar airspace disease. Blood culture obtained; no growth till date. Urine Cx negative. Continue vancomycin and ceftriaxone for now. Appreciate ID input. Sacral wound evaluated by surgery; recommend continue wound care. 08/25 Afebrile since the Blood culture: Negative Repeat urine culture: Negative Possible sources include: Left lung pneumonia-CAT scan ordered today Sacral decubitus ulcer Continue vancomycin plus ceftriaxone ID consulted-awaiting recommendations 08/26 CT chest: (+) L moderate pleural effusion will need Lasix once off Vanco (+) bedside debridement by Gen Surg 08/25 continue daily wound care continue Vancomycin + Ceftriaxone ID consult pending 08/27 had 1 low grade fever yesterday clinically appears improving continue Vanco + Ceftri will discuss with ID daily wound care appreciate Gen surg and wound care service eval will start Lasix once off Vanco 08/28 remains afebrile wounds appears to be healing d/c Vanc, change to Doxy continue Ceftri 08/29 remains stable, afebrile continue Doxy + Ceftri on probiotics 08/30 afebrile for bedside debridement today by Gen Baig Lovenox held today continue Ceftri + Doxy monitor closely Left sided pleural effusion on room air likely from blood transfusion, IV abx lasix 20mg IV daily x 2 days repeat CXR Tuesday monitor renal function 08/30 repeat CXR: pleural effusion slightly decreased another Lasix 20mg IV today monitor PRP (3) Sacral decubitus ulcer, stage II; POA Patient had sacral decubital ulcer which developed within 72 hours of hospitalization. 08/30 Management per above wound care daily (4) Elevated troponin: (5) CAD (coronary artery disease): Plan: Likely due to demand ischemia in the setting of profound anemia Continue beta-josé and statin. Plavix was also restarted. Troponin flat, 1100, 1300, 1000 EKG: No signs of acute ischemia or infarct Echo 45 to 45%, mild apical wall hypokinesis Cardiology service consulted-no further further interventions at this point Possible UTI Urine culture x 2: Gabbi Woods discussed with Erica GIBBS given Dapto x 2 days and completed oral doxycycline course. Hagan cath in place in setting of sacral decubital ulcer. (6) Type 2 diabetes mellitus: Plan: Hgb A1c 5.2 06/2022 Lantus 5 units in AM NovoLog per protocol Monitor BSG's closely (7) History of CVA (cerebrovascular accident): Plan: History of recurrent CVA despite DAPT and anticoagulation therapy Chronic right hemiplegia/left arm paralysis/mostly nonverbal/expressive aphasia management of Lovenox + PLavix per above. - Also on a statin. (8) H/O deep venous thrombosis: Plan: History of breakthrough DVT while on warfarin and Eliquis therapy, now on therapeutic dose Lovenox per above (9) HTN (hypertension): Plan: Currently on Coreg. Lisinopril presently on hold. BP stable overall (10) DVT prophylaxis: Plan: on Lovenox BID per above Disposition lives with at home Acute Rehab/SNF upon discharge plan of care discussed with patient's in detail and at length all questions answered she is understanding, agreeable, comfortable with the plan of care Admission and Anticipated Discharge Date Admission Date: August 09, 2022 Subjective ff up for hematoma, sacral decub wound, etc seen with Ms Downey at bedside alert, comfortable answers yes/no to questions no pain, shortness of breath seems to be in good spirits appetite good no coughing noted while eating breakfast no bleeding noted no other symptoms/signs Review of Systems Review of Systems: all noted and negative except for above Physical Exam Physical Exam: General-not in distress, alert Eyes- anicteric Neck- no JVD Lungs- mild decreased BS Left, clear on the right Heart- normal rate, regular rhythm; (+) holosystolic murmur - present since admission Abdomen- normal bowel sounds, nondistended, soft, nontender Extremities- no pretibial edema, no calf tenderness LUE- mild edema, no erythema/warmth/tenderness Neuro- no new gross focal neurologic deficits Skin- warm & dry Results & Data Results & Data Vital Signs (Past 12 Hours) Vital Signs Temp Pulse Pulse Resp BP Pulse Ox O2 Del Method 08/30/22 08:36 91 H 12 96 Room Air 08/30/22 06:00 97 H 08/30/22 07:34 36.8 C 93 H 18 123/79 96 Room Air 08/30/22 03:38 36.8 C 87 18 138/67 98 Room Air 08/29/22 22:29 78 08/29/22 23:12 36.7 C 75 18 110/55 L 97 Room Air 08/29/22 22:43 Room Air FiO2 08/30/22 08:36 21 08/30/22 06:00 08/30/22 07:34 08/30/22 03:38 08/29/22 22:29 08/29/22 23:12 08/29/22 22:43 all noted and reviewed including below
[2022-08-30] MEDS: MAGNESIUM OXIDE 400 MG TAB PO SCH (12:27)
--- NOTE | 2022-08-30 14:27 | Surgery Progress Note ---
Date of Service August 30, 2022 Assessment & Plan (1) Sacral wound: Plan: Consent was obtained. Bedside debridement today using sharp debridement with an 11 blade and scissor. Removed superficial layers of thick, dark necrotic tissue at the right side of the wound. A few areas of bleeding occurred indicating some healthy tissue was reached. The wound was washed with warm, soapy water, dried and redressed with Santyl layered with gauze. Admission and Anticipated Discharge Date Admission Date: August 09, 2022 Subjective Patient seen today, unchanged, seems comfortable Physical Exam Skin: Necrotic tissue at sacral wound. Appears stable from last exam and with some regression from the edges of the wound. No purulent fluid, dry Results & Data Vital Signs (Past 12 Hours) Vital Signs Temp Pulse Pulse Resp BP Pulse Ox O2 Del Method 08/30/22 09:00 Room Air 08/30/22 11:55 36.9 C 104 H 18 105/49 L 95 Room Air 08/30/22 08:36 91 H 12 96 Room Air 08/30/22 06:00 97 H 08/30/22 07:34 36.8 C 93 H 18 123/79 96 Room Air 08/30/22 03:38 36.8 C 87 18 138/67 98 Room Air FiO2 08/30/22 09:00 08/30/22 11:55 08/30/22 08:36 21 08/30/22 06:00 08/30/22 07:34 08/30/22 03:38 PG Care Time/CCT Total # of Minutes Spent Total Time Spent with Patient: Total time spent is greater than 50% in coordination of care (as documented) at patient's floor/unit and/or counseling patient: Coding [place] [address] SUB INP/OBS CARE 3/50MIN Patient Type Established History Problem Focused Exam Problem Focused Medical Decision Making Low Complexity Diagnoses Sacral wound S31.000A
[2022-08-30] MEDS: TAMSULOSIN HCL 0.4 MG CAP PO SCH (21:19)
[2022-08-30] MEDS: ATORVASTATIN 40 MG TAB PO SCH (21:21)
[2022-08-31 06:19] LABS: Basophils # (auto) 0.02 K/uL (0-0.2); Basophils % (auto) 0.4 %; Eosinophils # (auto) 0.09 K/uL (0-0.50); Eosinophils % (auto) 1.7 %; Hematocrit (blood only) 34.4 % (42.0-52.0); Hemoglobin 10.7 g/dl (14.0-18.0); Immature Granulocytes # (auto) 0.02 K/uL (0.01-0.20); Immature Granulocytes % (auto) 0.4 %; Lymphocytes # (auto) 1.45 K/uL (1.2-3.4); Lymphocytes % (auto) 28.1 %; Mean Corpuscular Hemoglobin 25.5 pg (25.0-34.0); Mean Corpuscular Hgb Conc 31.1 g/dL (32.0-36.0); Mean Corpuscular Volume 82.1 fL (80.0-100.0); Mean Platelet Volume 10.9 fL (9.4-12.4); Monocytes # (auto) 0.41 K/uL (0.11-0.59); Monocytes % (auto) 7.9 %; Neutrophils # (auto) 3.17 K/uL (1.40-6.50); Neutrophils % (auto) 61.5 %; Platelet Count 271 K/uL (130-400); RDW Coefficient of Variation 19.1 % (11.5-14.5); RDW Standard Deviation 57.8 fL (36.4-46.3); Red Blood Count 4.19 M/uL (4.70-6.10); White Blood Count 5.16 K/ul (4.8-10.8)
[2022-08-31 06:40] LABS: BUN Creatinine Ratio 48.7 (10-20); Calcium 7.9 mg/dl (8.6-10.3); Creatinine Clr Calc Pharmacy 203.8 ml/min; Est GFR (Non-African American) 126.8 ml/min; Magnesium 1.4 mg/dl (1.7-2.4); Potassium 3.5 mmol/L (3.5-5.1)
[2022-08-31] MEDS: ALBUT/IPRATROP 3MG/0.5MG NEB 3 ML VIAL NEB SCH ×2 (07:27→23:15)
[2022-08-31] MEDS: SODIUM CHLOR 7% 4 ML NEB NEB SCH ×2 (07:27→23:15)
[2022-08-31] MEDS ORDERED: LANTUS PER UNIT CHARGE SQ ONE (07:52)
[2022-08-31] MEDS ORDERED: INSULIN ASPART PER UNIT CHARGE SC ONE (07:52)
[2022-08-31] MEDS: LANTUS PER UNIT CHARGE SQ SCH (09:06)
[2022-08-31] MEDS: INSULIN ASPART PER UNIT CHARGE SC SCH ×4 (09:06→21:21)
[2022-08-31] MEDS: ACETAMINOPHEN 325 MG TAB PO SCH ×4 (09:07→21:04)
[2022-08-31] MEDS: carvediloL 12.5 MG TAB PO SCH ×2 (09:07→21:06)
[2022-08-31] MEDS: BACLOFEN 10 MG TAB PO SCH (09:08)
[2022-08-31] MEDS: ADVANCED PROBIOTIC 1250 MG CAPSULE PO SCH (09:09)
[2022-08-31] MEDS: PANTOprazole 40 MG TAB PO SCH ×2 (09:09→21:06)
[2022-08-31] MEDS: DOXYCYCLINE HYCLATE 100 MG CAP PO SCH ×2 (09:09→21:04)
[2022-08-31] MEDS: CLOPIDOGREL BISULFATE 75 MG TAB PO SCH (09:09)
[2022-08-31] MEDS: FOLIC ACID 1 MG TAB PO SCH (09:09)
[2022-08-31] MEDS: POLYETHYLENE (MIRALAX) 17 GM PACK PO SCH (09:16)
[2022-08-31] MEDS: MAGNESIUM SULFATE / D5W 1 GM/100 ML BAG IV SCH ×2 (09:29→11:15)
[2022-08-31] MEDS ORDERED: FUROSEMIDE INJ 20 MG/2 ML VIAL IV ONE (11:12)
[2022-08-31] MEDS: COLLAGENASE OINT 30 GM TUBE EXT SCH ×2 (11:15→21:06)
[2022-08-31] MEDS: ENOXAPARIN 100 MG/1ML SYR SQ SCH ×2 (11:16→23:00)
[2022-08-31] MEDS: MAGNESIUM OXIDE 400 MG TAB PO SCH (12:29)
--- NOTE | 2022-08-31 14:10 | CT Scan Report ---
LEFT FOREARM CT CT DOSE: 2823.32 mGy.cm HISTORY: Left forearm edema TECHNIQUE: Multiaxial CT images of the left forearm were performed and reformatted in the sagittal an d coronal plane without the use of contrast. A dose lowering technique was utilized adhering to the principles of ALARA. COMPARISON: Left forearm CT 08/10/2022. FINDINGS: Extensive subcutaneous/soft tissue edema seen throughout the left forearm. No loculated flu id collections identified on this noncontrast study to suggest an abscess. Persistent heterotopic oss ification again noted within the elbow and proximal forearm. This remains unchanged. Vascular calcifi cations are noted. No acute fracture or dislocation within the left forearm. Body wall edema identifi ed within the left abdominal wall. No erosive/destructive changes within the left forearm to suggest an osteomyelitis. IMPRESSION: Extensive subcutaneous/soft tissue edema throughout the left forearm. This is similar to the prior st udy. ACT 112: Negative or not required by law. Electronically signed by: Chris Bowens M.D. 08/31/2022 2:09 PM
--- NOTE | 2022-08-31 14:24 | CT Scan Report ---
CT SCAN OF THE LEFT SHOULDER WITHOUT IV CONTRAST; CT SCAN OF THE LEFT HUMERUS WITHOUT IV CONTRAST CLINICAL HISTORY: Edema. Known hematoma. COMPARISON STUDY: CT scan of the left shoulder dated 08/22/2022. CT scan of left humerus dated 3. TECHNIQUE: CT scan of the left shoulder is performed from the lower neck to the humeral shaft and a C T scan of the left humerus is performed from the shoulder to the elbow. Images for both examinations are reviewed in the axial, sagittal, and coronal planes. IV contrast was not administered for these e xaminations. A dose lowering technique was utilized adhering to the principles of ALARA. The examinat ions are degraded by motion artifact. FINDINGS: The skeletal structures are osteopenic. There is unchanged appearance of a subacute/healing fracture of the left posterior glenoid. This is best seen on axial image #110 of the shoulder examin ation. There are small displaced fragments. No additional acute or healing fracture is seen at the sh oulder joint. There is a small joint effusion of the left shoulder with calcific fragments/debris. Th ere is no humeral fracture. No bony erosion or periostitis is identified. Again seen are multiple loc ulated fluid collections containing hyperdense material within the left latissimus dorsi and left sub scapularis muscles. These are unchanged to modestly decreased in size as compared to the 08/22/2022 ex amination. A collection in the left latissimus dorsi on axial image #51 of 81 and measures approximat corby 4.5 x 4 cm, and a more inferiorly located collection within the latissimus dorsi on image #62 brown sures approximately 5 x 3 cm. A component within the subscapularis muscle on image #39 measures appro ximately 4 x 3.5 cm. There is overlying soft tissue edema. Large foci of heterotopic ossification are again seen on the distal humerus and the proximal forearm. This is greatest anteriorly, subcutaneous edema and fluid seen throughout the left upper extremity. No organized/drainable fluid collection is identified around the left humerus or elbow. There is significant body wall edema identified in the partially imaged left chest wall. There is a [id number] left pleural effusion with left basila r consolidation. The heart is enlarged. No left axillary adenopathy is seen. There is atherosclerotic calcification of the regional arteries. No soft tissue gas is seen throughout the left shoulder or a round the humerus. IMPRESSION: 1. There is a subacute/healing fracture of the left glenoid. This is similar to previous. 2. No additional fracture or dislocation is seen at the shoulder joint. 3. There is no evidence of left humeral fracture. 4. Right pleural effusion with right basilar consolidation. 5. Loculated and slightly hyperdense fluid collections within the left latissimus dorsi and subscapul brandon muscles are unchanged to modestly decreased in size as compared to 08/22/2022. The appearance fav ors resolving hematomas. The sterility of this fluid cannot be assessed by imaging and clinical corre lation will be required. 6. There is significant soft tissue edema throughout the left upper extremity and the partially image d left chest wall. No additional organized/drainable fluid collection is seen around the humerus in t he left upper extremity on this unenhanced examination. 7. Large foci of heterotopic ossification are again seen around the distal humerus and proximal forea rm. Clinical correlation will be required. 8. Additional findings as above. ACT 112: Negative or not required by law. Dictated: 08/31/2022 1:36 PM Transcribed: 08/31/2022 2:17 PM Tristian [id number] [email or web address] Electronically signed by: Donny Fernando M.D. 08/31/2022 2:22 PM
--- NOTE | 2022-08-31 17:26 | Hospitalist Progress Note ---
Date of Service August 31, 2022 Assessment & Plan (1) Hematoma of right thigh: Plan: (1)Acute blood loss anemia, likely secondary to right thigh hematoma and left arm hematoma spontaneous, in the setting of Lovenox and Plavix use History of Recurrent DVT, and CVA Plan: Patient presenting from home with reported increased lethargy, taking Lovenox 120mg BID and Plavix As an outpatient, patient has been noted to have a downtrending hemoglobin (11.5 --> 8.0 --> 9.1 --> 8.9 on 07/27). Patient was started on iron replacement. 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 Colonoscopy was considered however patient was felt to not likely be able to tolerate the prep. In the ED, Hgb 5.9. Patient hemodynamically stable. CT abdomen/pelvis/angio: There is a large hematoma involving the medial aspect of the upper thigh measuring approximately 5.5 x 6.5 cm in axial dimension. Questionable heterogeneous density surrounding the right femur are concerning for second hematoma and measuring 5.7 x 5.5 cm in axial dimension. There is no evidence of active bleed. [facility] consulted: no surgery recommended. He was transfused 4 unit of packed RBC; hemoglobin improved to [address] scan of the thigh was done on 08/13; stable size of hematoma. Venous duplex of left arm done on 08/18 shows large complex left axillary fluid collection typical for hematoma. Director Learning consulted: Dr. Richey- recommend to gradually start Lovenox- 40mg daily, then BID, then 80mg BID. Patient tolerated 2 days of Lovenox 80 mg twice daily; anti-Xa level was obtained on August 16; level was found to be 0.45. Discussion with hematology done again. Recommended to increase Lovenox to 100 mg twice daily and repeat anti-Xa level again. Repeat anti-Xa level was 0.6 which is within therapeutic range. Discussed with hematology again. Recommended to continue same doses. On the request of patient's regarding work-up for anemia; GI was informed and patient was planned for colonoscopy as inpatient on 08/19. However, further discussion with the ; she did not want patient to undergo colonoscopy preparation as she feels he is not at his baseline functional status and wants to do as outpatient. 08/31 on Lovenox 100mg sc BID and Plavix Hg remains stable at ~10 for the past week no signs of active bleeding hold Lovenox dose tomorrow noon for debridement 2) Fever likely secondary to Sacral Decub Ulcer Infection Blood culture: Negative Repeat urine culture: Negative pneumonia ruled out infected hematoma ruled out by CT afebrile x few days clinically improving continue Ceftriaxone day # 7 was on Vancomycin, changed to Doxycycline (Day #7) should complete 10 day course of antibiotics s/p 2 bedside debridements by Gen Surg- Tue and Mon plan for repeat debridement tomorrow Left sided pleural effusion on room air likely from multiple blood transfusions, IV abx will give Lasix 20mg IV again today (day 3) repeat CXR tomorrow (3) Sacral decubitus ulcer, stage II; POA Patient had sacral decubital ulcer which developed within 72 hours of hospitalization. 08/31 Management per above wound care daily (4) Elevated troponin: (5) CAD (coronary artery disease): Plan: Likely due to demand ischemia in the setting of profound anemia Continue beta-josé and statin. Plavix was also restarted. Troponin flat, 1100, 1300, 1000 EKG: No signs of acute ischemia or infarct Echo 45 to 45%, mild apical wall hypokinesis Cardiology service consulted-no further further interventions at this point Possible UTI Urine culture x 2: [place] discussed with Erica GIBBS given Dapto x 2 days and completed oral doxycycline course. Hagan cath in place in setting of sacral decubital ulcer. (6) Type 2 diabetes mellitus: Plan: Hgb A1c 5.2 06/2022 Lantus 5 units in AM NovoLog per protocol Monitor BSG's closely (7) History of CVA (cerebrovascular accident): Plan: History of recurrent CVA despite DAPT and anticoagulation therapy Chronic right hemiplegia/left arm paralysis/mostly nonverbal/expressive aphasia management of Lovenox + PLavix per above. - Also on a statin. (8) H/O deep venous thrombosis: Plan: History of breakthrough DVT while on warfarin and Eliquis therapy, now on therapeutic dose Lovenox per above (9) HTN (hypertension): Plan: Currently on Coreg. Lisinopril presently on hold. BP stable overall (10) DVT prophylaxis: Plan: on Lovenox BID per above Disposition lives with at home Acute Rehab/SNF upon discharge plan of care discussed with patient's in detail and at length all questions answered she is understanding, agreeable, comfortable with the plan of care Admission and Anticipated Discharge Date Admission Date: August 09, 2022 Subjective ff up for hematoma, sacral decub infection, etc seen resting in bed, alert, awake nods, answers yes/no to questions denies pain, shortness of breath no cough while swallowing appears comfortable patient's at bedside visiting no other issues noted Review of Systems Review of Systems: all noted and negative except for above Physical Exam Physical Exam: General- not in distress,breathing with no effort or accessory muscle use Eyes- anicteric Neck- no JVD Lungs- clear BS BL Heart- normal rate, regular rhythm; no murmurs Abdomen- normal bowel sounds, nondistended, soft, nontender Extremities- LUE: (+) edema, no warmth/tenderness/erythema no pretibial edema, no calf tenderness Neuro- alert, no new gross focal neurologic deficits Skin- warm & dry Results & Data Results & Data Vital Signs (Past 12 Hours) Vital Signs Temp Pulse Pulse Resp BP Pulse Ox O2 Del Method 08/31/22 15:01 36.7 C 79 20 131/75 96 Room Air 08/31/22 08:00 87 08/31/22 11:26 36.8 C 73 20 104/66 96 Room Air 08/31/22 08:00 37.0 C 85 20 131/69 95 Room Air 08/31/22 07:28 80 16 92 Room Air all noted and reviewed including below
[2022-08-31] MEDS: cefTRIAXone SODIUM 2,000 MG in DEXTROSE 5% 50 ML IV SCH (17:38)
--- NOTE | 2022-08-31 18:53 | Surgery Progress Note ---
Date of Service August 31, 2022 Assessment & Plan (1) Sacral wound: Plan: The necrotic tissue is now softer. I will make another attempt at a bedside debridement tomorrow in hopes that it will be more successful now that the necrotic tissue is softer. I have discussed another bedside debridement with his and consent was obtained. Hold the 12pm Lovenox dose tomorrow. Admission and Anticipated Discharge Date Admission Date: August 09, 2022 Subjective Patient appears more responsive and alert today. He tries to communicate more. Physical Exam Skin: Sacral wound does not appear overly dry and desiccated today. The necrotic tissue is softer on the right side of the wound and there is no hard, dry eschar present. The left side that was developing a thick, yellow necrotic layer is regressing and pink tissue is becoming more apparent in patches. I washed the wound again today with soap and water. Rinsed with saline and pat dry. I then re-dressed the wound Santyl, a minimally dampened gauze in the central aspect of the wound away from the skin edges covered with several layers of dry gauze that was extended to the skin edge outside of the dampened gauze and covered with Optifoam. Results & Data Vital Signs (Past 12 Hours) Vital Signs Temp Pulse Pulse Resp BP Pulse Ox O2 Del Method 08/31/22 16:30 75 08/31/22 15:01 36.7 C 79 20 131/75 96 Room Air 08/31/22 08:00 87 08/31/22 11:26 36.8 C 73 20 104/66 96 Room Air 08/31/22 08:00 37.0 C 85 20 131/69 95 Room Air 08/31/22 07:28 80 16 92 Room Air PG Care Time/CCT Total # of Minutes Spent Total Time Spent with Patient: Total time spent is greater than 50% in coordination of care (as documented) at patient's floor/unit and/or counseling patient: [place] [address] SUB INP/OBS CARE 2/35MIN Patient Type Established History Problem Focused Exam Problem Focused Medical Decision Making Low Complexity Diagnoses Sacral wound S31.000A
[2022-08-31] MEDS: ATORVASTATIN 40 MG TAB PO SCH (21:04)
[2022-08-31] MEDS: TAMSULOSIN HCL 0.4 MG CAP PO SCH (21:06)
[2022-09-01] MEDS: ALBUT/IPRATROP 3MG/0.5MG NEB 3 ML VIAL NEB SCH ×2 (07:11→19:00)
[2022-09-01] MEDS: SODIUM CHLOR 7% 4 ML NEB NEB SCH ×2 (07:11→19:00)
[2022-09-01] MEDS: ADVANCED PROBIOTIC 1250 MG CAPSULE PO SCH (08:38)
[2022-09-01] MEDS: DOXYCYCLINE HYCLATE 100 MG CAP PO SCH ×2 (08:39→20:18)
[2022-09-01] MEDS: FOLIC ACID 1 MG TAB PO SCH (08:39)
[2022-09-01] MEDS: PANTOprazole 40 MG TAB PO SCH ×2 (08:39→20:19)
[2022-09-01] MEDS: carvediloL 12.5 MG TAB PO SCH ×2 (08:39→20:19)
[2022-09-01] MEDS: CLOPIDOGREL BISULFATE 75 MG TAB PO SCH (08:39)
[2022-09-01] MEDS: ACETAMINOPHEN 325 MG TAB PO SCH ×4 (08:40→20:20)
[2022-09-01] MEDS: INSULIN ASPART PER UNIT CHARGE SC SCH ×4 (08:47→21:17)
[2022-09-01] MEDS: LANTUS PER UNIT CHARGE SQ SCH (08:48)
[2022-09-01] MEDS: POLYETHYLENE (MIRALAX) 17 GM PACK PO SCH ×2 (08:49→11:17)
[2022-09-01] MEDS: BACLOFEN 10 MG TAB PO SCH (08:58)
--- NOTE | 2022-09-01 10:02 | XRay Report ---
SINGLE VIEW CHEST CLINICAL HISTORY: Pleural effusions. FINDINGS: An AP, portable, upright chest radiograph is compared to study dated 08/30/2022 and correlat ed with chest CT dated 08/25/2022. The examination is degraded by portable technique and patient rotat ion. The patient is status post midline sternotomy. The heart is enlarged noting atherosclerotic calc ification of the thoracic aorta. The pulmonary vasculature is noncongested. There are left larger bob n right pleural effusions with dependent consolidation. No pneumothorax is seen. The skeletal structu res are osteopenic. Heterotopic ossification is again seen around the right scapula. IMPRESSION: 1. Cardiomegaly without radiographic evidence of congestive failure. 2. Left large right pleural effusions have not significantly changed ACT 112: Negative or not required by law. Electronically signed by: Donny Fernando M.D. 09/01/2022 10:00 AM
[2022-09-01] MEDS: COLLAGENASE OINT 30 GM TUBE EXT SCH ×2 (10:51→20:19)
--- NOTE | 2022-09-01 11:23 | Surgery Progress Note ---
Date of Service September 01, 2022 Assessment & Plan (1) Sacral wound: Plan: The wound was cleaned, debrided and re-dressed with Santyl and a slightly dampened gauze at the central aspects of the wound several mm's away from the intact skin at the wound edges. The full area was then covered with several dry gauzes and an optifoam was put in place to keep the dressing in place. Hold 12:00/noon time Lovenox dose today. Turn patient more frequently with pillows under all bony prominences. Admission and Anticipated Discharge Date Admission Date: August 09, 2022 Subjective Patient was seen today, unchanged. at the bedside. Physical Exam Skin: Sacral wound appears improved. Necrotic tissue is finally lifting away from the wound when the dressings were pulled away today. There are more spots of bleeding tissue starting to show in small patches throughout. The superior aspect where the most hard, dry tissue was is deeper than the rest of the wound but appears stable. Again there was stooling that was cleaned away. The wound was again washed with soap and water. I debrided the wound using curette and scissor. Debridement was easier in most spots. There is more bleeding through out the wound and the appearance of more beefy red and pink tissue. There was some new evidence of superficial pressure ischemia at the superior aspect of the left side gluteal fold that has been the least affected side. Results & Data Vital Signs (Past 12 Hours) Vital Signs Temp Pulse Pulse Resp BP Pulse Ox O2 Del Method 09/01/22 07:49 37.1 C 91 H 20 140/63 96 Room Air 09/01/22 07:00 89 09/01/22 07:12 71 16 95 Room Air 09/01/22 03:10 36.9 C 86 19 118/49 L 97 Room Air 08/31/22 23:29 80 08/31/22 23:15 76 24 95 Room Air PG Care Time/CCT Total # of Minutes Spent Total Time Spent with Patient: Total time spent is greater than 50% in coordination of care (as documented) at patient's floor/unit and/or counseling patient: Coding Level of Care Code 47507 SUB INP/OBS CARE 3/50MIN Diagnoses Sacral wound S31.000A
[2022-09-01] MEDS: MAGNESIUM OXIDE 400 MG TAB PO SCH (12:22)
--- NOTE | 2022-09-01 16:31 | Hospitalist Progress Note ---
Date of Service September 01, 2022 Assessment & Plan (1) Hematoma of right thigh: Plan: (1)Acute blood loss anemia, likely secondary to right thigh hematoma and left arm hematoma spontaneous, in the setting of Lovenox and Plavix use History of Recurrent DVT, and CVA Plan: Patient presenting from home with reported increased lethargy, taking Lovenox 120mg BID and Plavix As an outpatient, patient has been noted to have a downtrending hemoglobin (11.5 --> 8.0 --> 9.1 --> 8.9 on 07/27). Patient was started on iron replacement. 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 Colonoscopy was considered however patient was felt to not likely be able to tolerate the prep. In the ED, Hgb 5.9. Patient hemodynamically stable. CT abdomen/pelvis/angio: There is a large hematoma involving the medial aspect of the upper thigh measuring approximately 5.5 x 6.5 cm in axial dimension. Questionable heterogeneous density surrounding the right femur are concerning for second hematoma and measuring 5.7 x 5.5 cm in axial dimension. There is no evidence of active bleed. Decrease in left latissimus dorsi hematoma compared with 08/22/2022-resolving hematomas Significant soft tissue swelling throughout the left upper extremity Large foci of heterotopic ossification are again seen around the distal humerus and proximal forearm [facility] consulted: no surgery recommended. He was transfused 4 unit of packed RBC; hemoglobin improved to [address] scan of the thigh was done on 08/13; stable size of hematoma. Venous duplex of left arm done on 08/18 shows large complex left axillary fluid collection typical for hematoma. [employer] Inspector consulted: Dr. Richey- recommend to gradually start Lovenox- 40mg daily, then BID, then 80mg BID. Patient tolerated 2 days of Lovenox 80 mg twice daily; anti-Xa level was obtained on August 16; level was found to be 0.45. Discussion with hematology done again. Recommended to increase Lovenox to 100 mg twice daily and repeat anti-Xa level again. Repeat anti-Xa level was 0.6 which is within therapeutic range. Discussed with hematology again. Recommended to continue same doses. Lovenox is on hold for surgical debridement today and will be restarted in the evening On the request of patient's regarding work-up for anemia; GI was informed and patient was planned for colonoscopy as inpatient on 08/19. However, further discussion with the ; she did not want patient to undergo colonoscopy preparation as she feels he is not at his baseline functional status and wants to do as outpatient. 2) Fever likely secondary to Sacral Decub Ulcer Infection Blood culture: Negative Repeat urine culture: Negative Pneumonia ruled out Infected hematoma ruled out by CT Remains afebrile without any evidence of increasing white cell count Has been on ceftriaxone intravenously and also doxycycline, day 8 We will complete a 10-day course of antibiotic s/p 2 bedside debridements by Gen Surg- Fri and Mon Surgical debridement done today Wound is looking much better and no evidence of infection Left sided pleural effusion on room air likely from multiple blood transfusions, IV abx will give Lasix 20mg IV again today (day 3) Chest x-ray showed persistence of pleural effusion mainly on the left side (3) Sacral decubitus ulcer, stage II; POA Patient had sacral decubital ulcer which developed within 72 hours of hospitalization. (4) Elevated troponin: (5) CAD (coronary artery disease): Plan: Likely due to demand ischemia in the setting of profound anemia Continue beta-josé and statin. Plavix was also restarted. Troponin flat, 1100, 1300, 1000 EKG: No signs of acute ischemia or infarct Echo 45 to 45%, mild apical wall hypokinesis Cardiology service consulted-no further further interventions at this point Possible UTI Urine culture x 2: Coag Neg Staph discussed with Erica GIBBS given Dapto x 2 days and completed oral doxycycline course. Hagan cath in place in setting of sacral decubital ulcer. As above has been on ceftriaxone day 8 today (6) Type 2 diabetes mellitus: Plan: Hgb A1c 5.2 06/2022 Lantus 5 units in AM NovoLog per protocol Monitor BSG's closely (7) History of CVA (cerebrovascular accident): Plan: History of recurrent CVA despite DAPT and anticoagulation therapy Chronic right hemiplegia/left arm paralysis/mostly nonverbal/expressive aphasia management of Lovenox + PLavix per above. - Also on a statin. (8) H/O deep venous thrombosis: Plan: History of breakthrough DVT while on warfarin and Eliquis therapy, now on therapeutic dose Lovenox per above (9) HTN (hypertension): Plan: Currently on Coreg. Lisinopril presently on hold. BP stable overall (10) DVT prophylaxis: Plan: on Lovenox BID per above Disposition lives with at home Acute Rehab/SNF upon discharge plan of care discussed with patient's in detail and at length all questions answered she is understanding, agreeable, comfortable with the plan of care Admission and Anticipated Discharge Date Admission Date: August 09, 2022 Subjective 09/01/2022 The patient was seen and examined in medical telemetry unit He remains stable and is not been communicating Not in any distress No fever and or chills Has a surgical sacral wound debridement today Review of Systems Review of Systems: Unobtainable due to cognitive status Physical Exam Physical Exam: Lying in bed comfortably Constitutional: well developed, well nourished, + ill appearing and average body habitus Eyes: PERRL, conjunctivae normal, anicteric sclerae ENMT: external ear and nose normal, oropharynx normal Neck: trachea midline, no thyromegaly Respiratory: no respiratory distress Auscultation: + diminished lung sounds (More on the left base than the right) and + crackles (Minimal crackles) Cardiovascular: Rate/Rhythm: regular rate and regular rhythm; not tachycardic Heart Sounds: normal S1, normal S2 and + murmur Extremities: + edema (Bilateral leg edema and also upper extremity edema) Gastrointestinal (Abdomen): Inspection/Auscultation: normal bowel sounds; ab domen not distended Percussion/Palpation: + abdomen tender and abdomen soft Musculoskeletal: Left wrist swelling with pain on movement. No other acute arthritis Neurologic: Alert and awake. Noncommunicative from prior stroke. Bedbound with flexural deformities involving the lower extremities and to some extent upper extremities Lymphatic: no cervical or axillary lymphadenopathy Results & Data Results & Data Vital Signs (Past 12 Hours) Vital Signs Temp Pulse Pulse Resp BP Pulse Ox O2 Del Method 09/01/22 14:05 79 09/01/22 14:56 36.9 C 81 20 111/46 L 96 Room Air 09/01/22 11:29 37.4 C 81 20 116/70 Room Air 09/01/22 07:49 37.1 C 91 H 20 140/63 96 Room Air 09/01/22 07:00 89 09/01/22 07:12 71 16 95 Room Air Medications Administered Current Inpatient Medications Acetaminophen (Acetaminophen 325 Mg Tab) 650 mg PO QID [facility] Stop: 09/28/22 11:34 Last Admin: 09/01/22 14:43 Dose: 650 mg Albuterol (Albut/Ipratrop 3mg/0.5mg Neb 3 Ml Vial) 3 ml NEB BIDR [facility]; Protocol Stop: 09/17/22 11:44 Last Admin: 09/01/22 07:11 Dose: 3 ml Atorvastatin Calcium (Atorvastatin 40 Mg Tab) 80 mg PO QPM [facility] Stop: 09/08/22 20:59 Last Admin: 08/31/22 21:04 Dose: 80 mg Baclofen (Baclofen 10 Mg Tab) 5 [facility] Stop: 09/09/22 08:59 Last Admin: 09/01/22 08:58 Dose: 5 mg Carvedilol (Carvedilol 12.5 Mg Tab) 12.5 mg PO BID [facility] Stop: 09/08/22 20:59 Last Admin: 09/01/22 08:39 Dose: 12.5 mg Clopidogrel Bisulfate (Clopidogrel Bisulfate 75 Mg Tab) 75 mg [facility] [place] Stop: 09/14/22 14:59 Last Admin: 09/01/22 08:39 Dose: 75 mg Collagenase (Collagenase Oint 30 Gm Tube) 1 appln EXT BID [facility] Stop: 09/19/22 20:59 Last Admin: 09/01/22 10:51 Dose: 1 appln Dextrose (Dextrose 50% 50 Ml Syringe) 25 - 50 ml IV UD PRN; Protocol PRN Reason: Hypoglycemia Protocol Stop: 09/08/22 20:05 Doxycycline Hyclate (Doxycycline Hyclate 100 Mg Cap) 100 mg PO BID [facility] Stop: 09/03/22 20:59 Last Admin: 09/01/22 08:39 Dose: 100 mg Enoxaparin Sodium (Enoxaparin 100 Mg/1ml Syr) 100 mg SQ Q12H [facility] Stop: 09/29/22 22:24 Last Admin: 08/31/22 23:00 Dose: 100 mg Folic Acid (Folic Acid 1 Mg Tab) 1 mg PO QAM [facility] Stop: 09/11/22 08:59 Last Admin: 09/01/22 08:39 Dose: 1 mg Glucagon (Glucagon For Inj 1 Mg Vial) 1 mg SQ UD PRN; Protocol PRN Reason: Hypoglycemia Protocol Stop: 09/08/22 20:05 Glucose (Glucose 10 Tab/Tube) 4 - 8 tab PO UD PRN; Protocol PRN Reason: Hypoglycemia Treatment Stop: 09/08/22 20:05 Glucose (Glucose 40% Gel 15 Gm Tube) 15 - 30 gm PO UD PRN; Protocol PRN Reason: Hypoglycemia Protocol Stop: 09/08/22 20:05 Heparin Sodium (Beef Lung) (Heparin 10 Unit/Ml 5 Ml Flush) 5 ml FLUSH PRN PRN PRN Reason: Flush Stop: 09/13/22 11:26 Last Admin: 08/17/22 08:57 Dose: 5 ml Ceftriaxone Sodium 2,000 mg/ (Dextrose) 70 mls @ 100 mls/hr IV Q24H [facility]; Protoc ol Stop: 09/02/22 17:26 Last Infusion: 08/31/22 19:35 Dose: Infused Insulin Aspart (Insulin Aspart Per Unit Charge) 0 units SC ACHS [facility] Stop: 09/29/22 11:29 Last Admin: 09/01/22 12:23 Dose: 9 units Insulin Glargine (Lantus Per Unit Charge) 5 units SQ DAILY [facility] Stop: 09/30/22 08:59 Last Admin: 09/01/22 08:48 Dose: 5 units Lactobacillus Acidophilus (Advanced Probiotic 1250 Mg Capsule) 2 cap PO DAILY [facility] Stop: 09/28/22 08:59 Last Admin: 09/01/22 08:38 Dose: 2 cap Magnesium Oxide (Magnesium Oxide 400 Mg Tab) 400 mg PO DAILY@1200 [facility] Stop: 09/12/22 12:44 Last Admin: 09/01/22 12:22 Dose: 400 mg Miscellaneous (Carbohydrates For Hypoglycemia ) 15 - 30 gm PO UD PRN PRN Reason: Hypoglycemia Protocol Stop: 09/08/22 20:05 Pantoprazole Sodium (Pantoprazole 40 Mg Tab) 40 mg PO BID [facility] Stop: 09/16/22 20:59 Last Admin: 09/01/22 08:39 Dose: 40 mg Polyethylene Glycol (Polyethylene (Miralax) 17 Gm Pack) 17 gm PO DAILY [facility] Stop: 09/21/22 13:29 Last Admin: 09/01/22 11:17 Dose: Not Given Sodium Chloride (Sodium Chlor 7% 4 Ml Neb) 4 ml NEB BIDR [facility] Stop: 09/17/22 18:59 Last Admin: 09/01/22 07:11 Dose: 4 ml Tamsulosin HCl (Tamsulosin Hcl 0.4 Mg Cap) 0.4 mg PO HS [facility] Stop: 09/08/22 20:59 Last Admin: 08/31/22 21:06 Dose: 0.4 mg
[2022-09-01] MEDS ORDERED: FUROSEMIDE 40 MG/4 ML VIAL IV ONE (17:15)
[2022-09-01] MEDS: cefTRIAXone SODIUM 2,000 MG in DEXTROSE 5% 50 ML IV SCH (17:43)
[2022-09-01] MEDS ORDERED: ALBUT/IPRATROP 3MG/0.5MG NEB 3 ML VIAL NEB PRN (19:31)
[2022-09-01] MEDS: TAMSULOSIN HCL 0.4 MG CAP PO SCH (20:18)
[2022-09-01] MEDS: ATORVASTATIN 40 MG TAB PO SCH (20:19)
[2022-09-02] MEDS: FOLIC ACID 1 MG TAB PO SCH (08:12)
[2022-09-02] MEDS: ADVANCED PROBIOTIC 1250 MG CAPSULE PO SCH (08:13)
[2022-09-02] MEDS: PANTOprazole 40 MG TAB PO SCH ×2 (08:13→20:58)
[2022-09-02] MEDS: CLOPIDOGREL BISULFATE 75 MG TAB PO SCH (08:13)
[2022-09-02] MEDS: POLYETHYLENE (MIRALAX) 17 GM PACK PO SCH (08:14)
[2022-09-02] MEDS: DOXYCYCLINE HYCLATE 100 MG CAP PO SCH ×2 (08:14→20:57)
[2022-09-02] MEDS: ACETAMINOPHEN 325 MG TAB PO SCH ×4 (08:15→20:55)
[2022-09-02] MEDS: carvediloL 12.5 MG TAB PO SCH ×2 (08:15→20:56)
[2022-09-02] MEDS: BACLOFEN 10 MG TAB PO SCH (08:36)
[2022-09-02] MEDS: LANTUS PER UNIT CHARGE SQ SCH (08:45)
[2022-09-02] MEDS: INSULIN ASPART PER UNIT CHARGE SC SCH ×4 (08:45→20:57)
[2022-09-02] MEDS: COLLAGENASE OINT 30 GM TUBE EXT SCH ×2 (10:59→20:57)
[2022-09-02] MEDS: MAGNESIUM OXIDE 400 MG TAB PO SCH (14:23)
--- NOTE | 2022-09-02 15:36 | Hospitalist Progress Note ---
Date of Service September 02, 2022 Assessment & Plan (1) Hematoma of right thigh: Plan: (1)Acute blood loss anemia, likely secondary to right thigh hematoma and left arm hematoma spontaneous, in the setting of Lovenox and Plavix use History of Recurrent DVT, and CVA Plan: Patient presenting from home with reported increased lethargy, taking Lovenox 120mg BID and Plavix As an outpatient, patient has been noted to have a downtrending hemoglobin (11.5 --> 8.0 --> 9.1 --> 8.9 on 07/27). Patient was started on iron replacement. 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 Colonoscopy was considered however patient was felt to not likely be able to tolerate the prep. In the ED, Hgb 5.9. Patient hemodynamically stable. CT abdomen/pelvis/angio: There is a large hematoma involving the medial aspect of the upper thigh measuring approximately 5.5 x 6.5 cm in axial dimension. Questionable heterogeneous density surrounding the right femur are concerning for second hematoma and measuring 5.7 x 5.5 cm in axial dimension. There is no evidence of active bleed. Decrease in left latissimus dorsi hematoma compared with 08/22/2022-resolving hematomas Significant soft tissue swelling throughout the left upper extremity Large foci of heterotopic ossification are again seen around the distal humerus and proximal forearm Remains stable with current comorbid conditions Will check labs tomorrow [facility] consulted: no surgery recommended. He was transfused 4 unit of packed RBC; hemoglobin improved to [address] scan of the thigh was done on 08/13; stable size of hematoma. Venous duplex of left arm done on 08/18 shows large complex left axillary fluid collection typical for hematoma. Assurance Manager Insurance consulted: Dr. Richey- recommend to gradually start Lovenox- 40mg daily, then BID, then 80mg BID. Patient tolerated 2 days of Lovenox 80 mg twice daily; anti-Xa level was obtained on August 16; level was found to be 0.45. Discussion with hematology done again. Recommended to increase Lovenox to 100 mg twice daily and repeat anti-Xa level again. Repeat anti-Xa level was 0.6 which is within therapeutic range. Discussed with hematology again. Recommended to continue same doses. Lovenox is on hold for surgical debridement today and will be restarted in the evening On the request of patient's regarding work-up for anemia; GI was informed and patient was planned for colonoscopy as inpatient on 08/19. However, further discussion with the ; she did not want patient to undergo colonoscopy preparation as she feels he is not at his baseline functional status and wants to do as outpatient. 2) Fever likely secondary to Sacral Decub Ulcer Infection Blood culture: Negative Repeat urine culture: Negative Pneumonia ruled out Infected hematoma ruled out by CT Remains afebrile without any evidence of increasing white cell count Has been on ceftriaxone intravenously and also doxycycline, day 8 We will complete a 10-day course of antibiotic No more fever and or chills s/p 2 bedside debridements by Gen Surg- Fri and Mon Surgical debridement done today Wound is looking much better and no evidence of infection Please see the picture of the sacral wound to have an idea about the status 3 sacral decubiti Left sided pleural effusion on room air likely from multiple blood transfusions, IV abx will give Lasix 20mg IV again today (day 3) Chest x-ray showed persistence of pleural effusion mainly on the left side (3) Sacral decubitus ulcer, stage II; POA Patient had sacral decubital ulcer which developed within 72 hours of hospitalization. (4) Elevated troponin: (5) CAD (coronary artery disease): Plan: Likely due to demand ischemia in the setting of profound anemia Continue beta-josé and statin. Plavix was also restarted. Troponin flat, 1100, 1300, 1000 EKG: No signs of acute ischemia or infarct Echo 45 to 45%, mild apical wall hypokinesis Cardiology service consulted-no further further interventions at this point Possible UTI Urine culture x 2: Coag Neg Staph discussed with Erica GIBBS given Dapto x 2 days and completed oral doxycycline course. Hagan cath in place in setting of sacral decubital ulcer. As above has been on ceftriaxone day 8 today (6) Type 2 diabetes mellitus: Plan: Hgb A1c 5.2 06/2022 Lantus 5 units in AM NovoLog per protocol Monitor BSG's closely (7) History of CVA (cerebrovascular accident): Plan: History of recurrent CVA despite DAPT and anticoagulation therapy Chronic right hemiplegia/left arm paralysis/mostly nonverbal/expressive aphasia management of Lovenox + PLavix per above. - Also on a statin. (8) H/O deep venous thrombosis: Plan: History of breakthrough DVT while on warfarin and Eliquis therapy, now on therapeutic dose Lovenox per above (9) HTN (hypertension): Plan: Currently on Coreg. Lisinopril presently on hold. BP stable overall (10) DVT prophylaxis: Plan: on Lovenox BID per above Disposition lives with at home Acute Rehab/SNF upon discharge plan of care discussed with patient's in detail and at length all questions answered she is understanding, agreeable, comfortable with the plan of care A total of 45 minutes spent seeing the patient,examining him, explaining the current medical conditions to the and reviewing the medications. Admission and Anticipated Discharge Date Admission Date: August 09, 2022 Subjective 09/01/2022 The patient was seen and examined in medical telemetry unit He remains stable and is not been communicating Not in any distress No fever and or chills Has a surgical sacral wound debridement today 09/02/2022 The patient was seen and examined in medical telemetry unit in presence of the He remains stable with bedbound status and to ongoing weakness Review of Systems Review of Systems: all noted and negative except for above Physical Exam Physical Exam: Lying in bed comfortably. No acute distress to suggest that he is in pain worsening shortness of breath Constitutional: well developed, well nourished, + ill appearing and average body habitus Eyes: PERRL, conjunctivae normal, anicteric sclerae ENMT: external ear and nose normal, oropharynx normal Neck: trachea midline, no thyromegaly Respiratory: no respiratory distress Auscultation: + diminished lung sounds (More on the left base than the right) and + crackles (Minimal crackles) Cardiovascular: Rate/Rhythm: regular rate and regular rhythm; not tachycardic Heart Sounds: normal S1, normal S2 and + murmur Extremities: + edema (Bilateral leg edema and also upper extremity edema) Gastrointestinal (Abdomen): Inspection/Auscultation: normal bowel sounds; abdomen not distended Percussion/Palpation: + abdomen tender and abdomen soft Musculoskeletal: Has right extremities flexural deformities in the joint secondary to stroke. Limited or no movement of the left upper and lower extremities Neurologic: Alert and awake. Significant aphasia. No problem with swallowing. Right hemiplegia. Left hemiparesis Lymphatic: no cervical or axillary lymphadenopathy Results & Data Results & Data Vital Signs (Past 12 Hours) Vital Signs Temp Pulse Pulse Resp BP BP Pulse Ox 09/02/22 15:05 37.6 C H 87 16 112/75 96 09/02/22 14:56 92 H 09/02/22 11:22 36.9 C 84 22 99/61 L 94 09/02/22 07:30 36.8 C 99 H 24 97/55 L 97 09/02/22 07:28 96 H 09/02/22 04:00 37.1 C 76 18 115/48 L 98 O2 Del Method 09/02/22 15:05 Room Air 09/02/22 14:56 09/02/22 11:22 Room Air 09/02/22 07:30 Room Air 09/02/22 07:28 09/02/22 04:00 Room Air Medications Administered Current Inpatient Medications Acetaminophen (Acetaminophen 325 Mg Tab) 650 mg PO QID SUMA Stop: 09/28/22 11:34 Last Admin: 09/02/22 12:48 Dose: 650 mg Albuterol (Albut/Ipratrop 3mg/0.5mg Neb 3 Ml Vial) 3 ml NEB QIDR PRN; Protocol PRN Reason: Wheezing Stop: 10/01/22 19:30 Atorvastatin Calcium (Atorvastatin 40 Mg Tab) 80 mg PO QPM SUMA Stop: 09/08/22 20:59 Last Admin: 09/01/22 20:19 Dose: 80 mg Baclofen (Baclofen 10 Mg Tab) 5 mg PO QAM SUMA Stop: 09/09/22 08:59 Last Admin: 09/02/22 08:36 Dose: 5 mg Carvedilol (Carvedilol 12.5 Mg Tab) 12.5 mg PO BID SUMA Stop: 09/08/22 20:59 Last Admin: 09/02/22 08:15 Dose: Not Given Clopidogrel Bisulfate (Clopidogrel Bisulfate 75 Mg Tab) 75 mg PO QAM [facility] Stop: 09/14/22 14:59 Last Admin: 09/02/22 08:13 Dose: 75 mg Collagenase (Collagenase Oint 30 Gm Tube) 1 appln EXT BID SUMA Stop: 09/19/22 20:59 Last Admin: 09/02/22 10:59 Dose: 1 appln Dextrose (Dextrose 50% 50 Ml Syringe) 25 - 50 ml IV UD PRN; Protocol PRN Reason: Hypoglycemia Protocol Stop: 09/08/22 20:05 Doxycycline Hyclate (Doxycycline Hyclate 100 Mg Cap) 100 mg PO BID SUMA Stop: 09/03/22 20:59 Last Admin: 09/02/22 08:14 Dose: 100 mg Enoxaparin Sodium (Enoxaparin 100 Mg/1ml Syr) 100 mg SQ Q12H [facility]MA Stop: 09/29/22 22:24 Last Admin: 08/31/22 23:00 Dose: 100 mg Folic Acid (Folic Acid 1 Mg Tab) 1 mg PO QAM SUMA Stop: 09/11/22 08:59 Last Admin: 09/02/22 08:12 Dose: 1 mg Glucagon (Glucagon For Inj 1 Mg Vial) 1 mg SQ UD PRN; Protocol PRN Reason: Hypoglycemia Protocol Stop: 09/08/22 20:05 Glucose (Glucose 10 Tab/Tube) 4 - 8 tab PO UD PRN; Protocol PRN Reason: Hypoglycemia Treatment Stop: 09/08/22 20:05 Glucose (Glucose 40% Gel 15 Gm Tube) 15 - 30 gm PO UD PRN; Protocol PRN Reason: Hypoglycemia Protocol Stop: 09/08/22 20:05 Heparin Sodium (Beef Lung) (Heparin 10 Unit/Ml 5 Ml Flush) 5 ml FLUSH PRN PRN PRN Reason: Flush Stop: 09/13/22 11:26 Last Admin: 08/17/22 08:57 Dose: 5 ml Ceftriaxone Sodium 2,000 mg/ (Dextrose) 70 mls @ 100 mls/hr IV Q24H SUMA; Protocol Stop: 09/02/22 17:26 Last Infusion: 09/01/22 18:25 Dose: Infused Insulin Aspart (Insulin Aspart Per Unit Charge) 0 units SC ACHS SUMA Stop: 09/29/22 11:29 Last Admin: 09/02/22 12:47 Dose: 9 units Insulin Glargine (Lantus Per Unit Charge) 5 units SQ DAILY [facility] Stop: 09/30/22 08:59 Last Admin: 09/02/22 08:45 Dose: 5 units Lactobacillus Acidophilus (Advanced Probiotic 1250 Mg Capsule) 2 cap PO DAILY [facility] Stop: 09/28/22 08:59 Last Admin: 09/02/22 08:13 Dose: 2 cap Magnesium Oxide (Magnesium Oxide 400 Mg Tab) 400 mg PO DAILY@1200 [facility] Stop: 09/12/22 12:44 Last Admin: 09/02/22 14:23 Dose: 400 mg Miscellaneous (Carbohydrates For Hypoglycemia ) 15 - 30 gm PO UD PRN PRN Reason: Hypoglycemia Protocol Stop: 09/08/22 20:05 Pantoprazole Sodium (Pantoprazole 40 Mg Tab) 40 mg PO BID SUMA Stop: 09/16/22 20:59 Last Admin: 09/02/22 08:13 Dose: 40 mg Polyethylene Glycol (Polyethylene (Miralax) 17 Gm Pack) 17 gm PO DAILY [facility] Stop: 09/21/22 13:29 Last Admin: 09/02/22 08:14 Dose: Not Given Tamsulosin HCl (Tamsulosin Hcl 0.4 Mg Cap) 0.4 mg PO HS [facility] Stop: 09/08/22 20:59 Last Admin: 09/01/22 20:18 Dose: 0.4 mg
[2022-09-02] MEDS: cefTRIAXone SODIUM 2,000 MG in DEXTROSE 5% 50 ML IV SCH (17:07)
[2022-09-02] MEDS: ATORVASTATIN 40 MG TAB PO SCH (20:56)
[2022-09-02] MEDS: TAMSULOSIN HCL 0.4 MG CAP PO SCH (20:58)
[2022-09-03 08:00] LABS: Hemoglobin 11.2 g/dl (14.0-18.0); Mean Corpuscular Hemoglobin 25.2 pg (25.0-34.0); Mean Corpuscular Hgb Conc 31.1 g/dL (32.0-36.0); Mean Corpuscular Volume 81.1 fL (80.0-100.0); Mean Platelet Volume 10.1 fL (9.4-12.4); Platelet Count 264 K/uL (130-400); RDW Coefficient of Variation 18.9 % (11.5-14.5); RDW Standard Deviation 56.6 fL (36.4-46.3); Red Blood Count 4.44 M/uL (4.70-6.10); White Blood Count 6.62 K/ul (4.8-10.8)
[2022-09-03 08:18] LABS: Calcium 8.2 mg/dl (8.6-10.3); Creatinine Clr Calc Pharmacy 201.7 ml/min; Est GFR (African American) 148.6 ml/min; Est GFR (Non-African American) 128.2 ml/min; Magnesium 1.5 mg/dl (1.7-2.4); Phosphorus 3.4 mg/dl (2.5-4.9); Potassium 4.1 mmol/L (3.5-5.1)
[2022-09-03] MEDS: PANTOprazole 40 MG TAB PO SCH ×2 (08:20→21:22)
[2022-09-03] MEDS: CLOPIDOGREL BISULFATE 75 MG TAB PO SCH (08:20)
[2022-09-03] MEDS: FOLIC ACID 1 MG TAB PO SCH (08:20)
[2022-09-03] MEDS: ACETAMINOPHEN 325 MG TAB PO SCH ×4 (08:20→21:21)
[2022-09-03] MEDS: ADVANCED PROBIOTIC 1250 MG CAPSULE PO SCH (08:20)
[2022-09-03] MEDS: carvediloL 12.5 MG TAB PO SCH ×2 (08:20→21:21)
[2022-09-03] MEDS: DOXYCYCLINE HYCLATE 100 MG CAP PO SCH (08:20)
[2022-09-03] MEDS: POLYETHYLENE (MIRALAX) 17 GM PACK PO SCH (08:21)
[2022-09-03] MEDS: INSULIN ASPART PER UNIT CHARGE SC SCH ×4 (08:32→21:22)
[2022-09-03] MEDS: LANTUS PER UNIT CHARGE SQ SCH (08:33)
[2022-09-03] MEDS: BACLOFEN 10 MG TAB PO SCH (08:37)
[2022-09-03] MEDS: COLLAGENASE OINT 30 GM TUBE EXT SCH ×2 (09:18→21:22)
[2022-09-03] MEDS ORDERED: FUROSEMIDE 40 MG/4 ML VIAL IV ONE (11:45)
[2022-09-03] MEDS: MAGNESIUM OXIDE 400 MG TAB PO SCH ×2 (11:53→21:23)
--- NOTE | 2022-09-03 15:07 | Hospitalist Progress Note ---
Date of Service September 03, 2022 Assessment & Plan (1) Hematoma of right thigh: Plan: (1)Acute blood loss anemia, likely secondary to right thigh hematoma and left arm hematoma spontaneous, in the setting of Lovenox and Plavix use History of Recurrent DVT, and CVA Plan: Patient presenting from home with reported increased lethargy, taking Lovenox 120mg BID and Plavix As an outpatient, patient has been noted to have a downtrending hemoglobin (11.5 --> 8.0 --> 9.1 --> 8.9 on 07/27). Patient was started on iron replacement. 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 Colonoscopy was considered however patient was felt to not likely be able to tolerate the prep. In the ED, Hgb 5.9. Patient hemodynamically stable. CT abdomen/pelvis/angio: There is a large hematoma involving the medial aspect of the upper thigh measuring approximately 5.5 x 6.5 cm in axial dimension. Questionable heterogeneous density surrounding the right femur are concerning for second hematoma and measuring 5.7 x 5.5 cm in axial dimension. There is no evidence of active bleed. Decrease in left latissimus dorsi hematoma compared with 08/22/2022-resolving hematomas Significant soft tissue swelling throughout the left upper extremity Large foci of heterotopic ossification are again seen around the distal humerus and proximal forearm Remains stable with current comorbid conditions Hemoglobin remains stable at more than 11 as of 09/03/2022-we will continue current dose of Lovenox [facility] consulted: no surgery recommended. He was transfused 4 unit of packed RBC; hemoglobin improved to [address] scan of the thigh was done on 08/13; stable size of hematoma. Venous duplex of left arm done on 08/18 shows large complex left axillary fluid collection typical for hematoma. Supervisor Communications [employer] Sign[employer] consulted: Dr. Richey- recommend to gradually start Lovenox- 40mg daily, then BID, then 80mg BID. Patient tolerated 2 days of Lovenox 80 mg twice daily; anti-Xa level was obtained on August 16; level was found to be 0.45. Discussion with hematology done again. Recommended to increase Lovenox to 100 mg twice daily and repeat anti-Xa level again. Repeat anti-Xa level was 0.6 which is within therapeutic range. Discussed with hematology again. Recommended to continue same doses. Lovenox is on hold for surgical debridement today and will be restarted in the evening Lovenox has been restarted following surgical debridement Surgery has been following On the request of patient's regarding work-up for anemia; GI was informed and patient was planned for colonoscopy as inpatient on 08/19. However, further discussion with the ; she did not want patient to undergo colonoscopy preparation as she feels he is not at his baseline functional status and wants to do as outpatient. 2) Fever likely secondary to Sacral Decub Ulcer Infection Blood culture: Negative Repeat urine culture: Negative Pneumonia ruled out Infected hematoma ruled out by CT Remains afebrile without any evidence of increasing white cell count Has been on ceftriaxone intravenously and also doxycycline, day 8 We will complete a 10-day course of antibiotic No more fever and or chills Sacral decubitus ulcer, stage II; POA Patient had sacral decubital ulcer which developed within 72 hours of hospitalization. s/p 2 bedside debridements by Gen Surg- Fri and Mon Surgical debridement done today Wound is looking much better and no evidence of infection Please see the picture of the sacral wound to have an idea about the status 3 sacral decubiti Further reviewing the chart it was noted that his sacral decubiti was stage II with impending skin breakdown on admission as on 08/13/2022 The sacral wound definitely showed to be stage II on 08/16/2022 Further exposure to underlying tissues noted to be on 08/26/2022 and as of 09/02/2022 the wound is looking to be stage II-III which required couple of times debridement by the surgeon Left sided pleural effusion on room air likely from multiple blood transfusions, IV abx will give Lasix 20mg IV again today (day 3) Chest x-ray showed persistence of pleural effusion mainly on the left side Has been negative fluid balance of about 1800 mL since admission Will give another dose of Lasix of 40 mg today (4) Elevated troponin: (5) CAD (coronary artery disease): Plan: Likely due to demand ischemia in the setting of profound anemia Continue beta-josé and statin. Plavix was also restarted. Troponin flat, 1100, 1300, 1000 EKG: No signs of acute ischemia or infarct Echo 45 to 45%, mild apical wall hypokinesis Cardiology service consulted-no further further interventions at this point Possible UTI Urine culture x 2: [place] discussed with [place] BERNIE given Dapto x 2 days and completed oral doxycycline course. Hagan cath in place in setting of sacral decubital ulcer. As above has been on ceftriaxone day 8 today (6) Type 2 diabetes mellitus: Plan: Hgb A1c 5.2 06/2022 Lantus 5 units in AM NovoLog per protocol Monitor BSG's closely (7) History of CVA (cerebrovascular accident): Plan: History of recurrent CVA despite DAPT and anticoagulation therapy Chronic right hemiplegia/left arm paralysis/mostly nonverbal/expressive aphasia management of Lovenox + PLavix per above. - Also on a statin. (8) H/O deep venous thrombosis: Plan: History of breakthrough DVT while on warfarin and Eliquis therapy, now on therapeutic dose Lovenox per above (9) HTN (hypertension): Plan: Currently on Coreg. Lisinopril presently on hold. BP stable overall (10) DVT prophylaxis: Plan: on Lovenox BID per above Disposition lives with at home Acute Rehab/SNF upon discharge plan of care discussed with patient's in detail and at length all questions answered she is understanding, agreeable, comfortable with the plan of care A total of 55 minutes spent seeing the patient,examining him, explaining the current medical conditions to the and reviewing the medications with adjustment of the medications. Admission and Anticipated Discharge Date Admission Date: August 09, 2022 Subjective 330 09/01/2022 The patient was seen and examined in medical telemetry unit He remains stable and is not been communicating Not in any distress No fever and or chills Has a surgical sacral wound debridement today 09/02/2022 The patient was seen and examined in medical telemetry unit in presence of the He remains stable with bedbound status and to ongoing weakness 09/03/2022 The patient was seen and examined in medical telemetry unit He has been stable Not in any distress and denies any significant symptoms Review of Systems Review of Systems: Unobtainable due to cognitive status Physical Exam Physical Exam: Lying in bed comfortably. Constitutional: well developed, well nourished, + ill appearing and average body habitus Eyes: PERRL, conjunctivae normal, anicteric sclerae ENMT: external ear and nose normal, oropharynx normal Neck: trachea midline, no thyromegaly Respiratory: no respiratory distress Auscultation: + diminished lung sounds (More on the left base than the right) and + crackles (Minimal crackles) Cardiovascular: Rate/Rhythm: regular rate and regular rhythm; not tachycardic Heart Sounds: normal S1, normal S2 and + murmur Extremities: + edema (Bilateral leg edema and also upper extremity edema) Gastrointestinal (Abdomen): Inspection/Auscultation: normal bowel sounds; abdomen not distended Percussion/Palpation: + abdomen tender and abdomen soft Musculoskeletal: No acute arthritis involving any joint. Joints are a little stiff due to lack of movements Skin: Has status 2-3 sacral decubitus ulcer Neurologic: Alert and awake. Has significant aphasia. Significant right hemiplegia and left arm paralysis and remains nonverbal with expressive aphasia Lymphatic: no cervical or axillary lymphadenopathy Results & Data Results & Data Vital Signs (Past 12 Hours) Vital Signs Temp Pulse Pulse Resp BP BP Pulse Ox 09/03/22 12:12 37.0 C 76 16 140/76 95 09/03/22 08:00 77 09/03/22 08:00 09/03/22 08:01 36.8 C 87 16 122/72 95 09/03/22 03:45 36.3 C L 79 20 119/69 95 O2 Del Method 09/03/22 12:12 Room Air 09/03/22 08:00 09/03/22 08:00 Room Air 09/03/22 08:01 Room Air 09/03/22 03:45 Room Air Laboratory Results Short CBC 09/03/22 Range/Units 07:09 WBC 6.62 (4.8-10.8) K/ul Hgb 11.2 L (14.0-18.0) g/dl Hct 36.0 L (42.0-52.0) % Plt Count 264 (130-400) K/uL BMP 09/03/22 07:09 Sodium 139 Potassium 4.1 Chloride 106 Carbon Dioxide 27 BUN 19 Creatinine 0.38 L Glucose 162 H Calcium 8.2 L Medications Administered Current Inpatient Medications Acetaminophen (Acetaminophen 325 Mg Tab) 650 mg PO QID SUMA Stop: 09/28/22 11:34 Last Admin: 09/03/22 14:14 Dose: Not Given Albuterol (Albut/Ipratrop 3mg/0.5mg Neb 3 Ml Vial) 3 ml NEB QIDR PRN; Protocol PRN Reason: Wheezing Stop: 10/01/22 19:30 Atorvastatin Calcium (Atorvastatin 40 Mg Tab) 80 mg PO QPM [facility] Stop: 09/08/22 20:59 Last Admin: 09/02/22 20:56 Dose: 80 mg Baclofen (Baclofen 10 Mg Tab) 5 mg PO QAM SUMA Stop: 09/09/22 08:59 Last Admin: 09/03/22 08:37 Dose: 5 mg Carvedilol (Carvedilol 12.5 Mg Tab) 12.5 mg PO BID [facility]MA Stop: 09/08/22 20:59 Last Admin: 09/03/22 08:20 Dose: 12.5 mg Clopidogrel Bisulfate (Clopidogrel Bisulfate 75 Mg Tab) 75 mg PO QAM [facility] Stop: 09/14/22 14:59 Last Admin: 09/03/22 08:20 Dose: 75 mg Collagenase (Collagenase Oint 30 Gm Tube) 1 appln EXT BID [facility] Stop: 09/19/22 20:59 Last Admin: 09/03/22 09:18 Dose: 1 appln Dextrose (Dextrose 50% 50 Ml Syringe) 25 - 50 ml IV UD PRN; Protocol PRN Reason: Hypoglycemia Protocol Stop: 09/08/22 20:05 Doxycycline Hyclate (Doxycycline Hyclate 100 Mg Cap) 100 mg PO BID [facility] Stop: 09/03/22 20:59 Last Admin: 09/03/22 08:20 Dose: 100 mg Enoxaparin Sodium (Enoxaparin 100 Mg/1ml Syr) 100 mg SQ Q12H [facility] Stop: 09/29/22 22:24 Last Admin: 08/31/22 23:00 Dose: 100 mg Folic Acid (Folic Acid 1 Mg Tab) 1 mg PO QAM [facility] Stop: 09/11/22 08:59 Last Admin: 09/03/22 08:20 Dose: 1 mg Glucagon (Glucagon For Inj 1 Mg Vial) 1 mg SQ UD PRN; Protocol PRN Reason: Hypoglycemia Protocol Stop: 09/08/22 20:05 Glucose (Glucose 10 Tab/Tube) 4 - 8 tab PO UD PRN; Protocol PRN Reason: Hypoglycemia Treatment Stop: 09/08/22 20:05 Glucose (Glucose 40% Gel 15 Gm Tube) 15 - 30 gm PO UD PRN; Protocol PRN Reason: Hypoglycemia Protocol Stop: 09/08/22 20:05 Heparin Sodium (Beef Lung) (Heparin 10 Unit/Ml 5 Ml Flush) 5 ml FLUSH PRN PRN PRN Reason: Flush Stop: 09/13/22 11:26 Last Admin: 08/17/22 08:57 Dose: 5 ml Insulin Aspart (Insulin Aspart Per Unit Charge) 0 units SC ACHS [facility] Stop: 09/29/22 11:29 Last Admin: 09/03/22 12:19 Dose: 13 units Insulin Glargine (Lantus Per Unit Charge) 5 units SQ DAILY [facility] Stop: 09/30/22 08:59 Last Admin: 09/03/22 08:33 Dose: 5 units Lactobacillus Acidophilus (Advanced Probiotic 1250 Mg Capsule) 2 cap PO DAILY [facility] Stop: 09/28/22 08:59 Last Admin: 09/03/22 08:20 Dose: 2 cap Magnesium Oxide (Magnesium Oxide 400 Mg Tab) 400 mg PO BID@1100,2200 [facility] Stop: 10/03/22 10:59 Last Admin: 09/03/22 11:53 Dose: 400 mg Miscellaneous (Carbohydrates For Hypoglycemia ) 15 - 30 gm PO UD PRN PRN Reason: Hypoglycemia Protocol Stop: 09/08/22 20:05 Pantoprazole Sodium (Pantoprazole 40 Mg Tab) 40 mg PO BID [facility] Stop: 09/16/22 20:59 Last Admin: 09/03/22 08:20 Dose: 40 mg Polyethylene Glycol (Polyethylene (Miralax) 17 Gm Pack) 17 gm PO DAILY [facility] Stop: 09/21/22 13:29 Last Admin: 09/03/22 08:21 Dose: Not Given Tamsulosin HCl (Tamsulosin Hcl 0.4 Mg Cap) 0.4 mg PO HS [facility] Stop: 09/08/22 20:59 Last Admin: 09/02/22 20:58 Dose: 0.4 mg
--- NOTE | 2022-09-03 17:22 | Surgery Progress Note ---
Date of Service September 03, 2022 Assessment & Plan (1) Sacral wound: Plan: Seemed to be making very good progress. We will reassess the wound on Tuesday to see if any further debridement is needed prior to patient transfer to a rehab facility. Of note this facility will have to be willing to perform daily washing of the wound with soap and water as well as dress the wound daily. Admission and Anticipated Discharge Date Admission Date: August 09, 2022 Subjective Patient seen, unchanged. at the bedside. Physical Exam Skin: The sacral wound was washed with warm soapy water. The wound was extensively debrided with a curette and scissors. A majority of the slough and necrotic tissue noted at the deeper superior aspect of the wound was able to be removed at the bedside today and reaching beefy red tissue with blood supply. The wound in general was debrided with a curette of some residual slough. The wound was rinsed well dried and redressed with Santyl, barely damp gauze covered with several layers of dry gauze and an Optifoam dressing. Results & Data Vital Signs (Past 12 Hours) Vital Signs Temp Pulse Pulse Resp BP Pulse Ox O2 Del Method 09/03/22 16:00 77 09/03/22 16:20 37.1 C 86 16 107/44 L 97 Room Air 09/03/22 12:12 37.0 C 76 16 140/76 95 Room Air 09/03/22 08:00 77 09/03/22 08:00 Room Air 09/03/22 08:01 36.8 C 87 16 122/72 95 Room Air PG Care Time/CCT Total # of Minutes Spent Total Time Spent with Patient: Total time spent is greater than 50% in coordination of care (as documented) at patient's floor/unit and/or counseling patient: Coding Level of Care Code 63866 SUB INP/OBS CARE 3/50MIN Diagnoses Sacral wound S31.000A
[2022-09-03] MEDS: ATORVASTATIN 40 MG TAB PO SCH (21:21)
[2022-09-03] MEDS: TAMSULOSIN HCL 0.4 MG CAP PO SCH (21:23)
[2022-09-04] MEDS: carvediloL 12.5 MG TAB PO SCH ×2 (08:58→21:14)
[2022-09-04] MEDS: ACETAMINOPHEN 325 MG TAB PO SCH ×4 (08:58→21:13)
[2022-09-04] MEDS: ADVANCED PROBIOTIC 1250 MG CAPSULE PO SCH (08:58)
[2022-09-04] MEDS: PANTOprazole 40 MG TAB PO SCH ×2 (08:58→21:15)
[2022-09-04] MEDS: FOLIC ACID 1 MG TAB PO SCH (08:58)
[2022-09-04] MEDS: CLOPIDOGREL BISULFATE 75 MG TAB PO SCH (08:58)
[2022-09-04] MEDS: COLLAGENASE OINT 30 GM TUBE EXT SCH ×2 (08:59→21:14)
[2022-09-04] MEDS: LANTUS PER UNIT CHARGE SQ SCH (09:00)
[2022-09-04] MEDS: INSULIN ASPART PER UNIT CHARGE SC SCH ×4 (09:00→21:15)
[2022-09-04] MEDS: POLYETHYLENE (MIRALAX) 17 GM PACK PO SCH (09:06)
[2022-09-04] MEDS: BACLOFEN 10 MG TAB PO SCH (09:16)
[2022-09-04] MEDS: MAGNESIUM OXIDE 400 MG TAB PO SCH ×2 (11:21→21:15)
--- NOTE | 2022-09-04 11:45 | XRay Report ---
XR chest 1V portable CLINICAL HISTORY: Pleural Effusion TECHNIQUE: Single frontal radiograph of the chest was obtained. Comparison: Comparison is made to chest radiograph 09/01/2022 FINDINGS: Median sternotomy wires are unchanged. The cardiomediastinal silhouette is normal. Lungs are underinf lated but clear. No evidence of pleural effusion or pneumothorax. IMPRESSION: No acute abnormality and in particular no evidence of pleural effusion. ACT 112: Negative or not required by law. Electronically signed by: Bradley Reeves M.D. 09/04/2022 11:42 AM
--- NOTE | 2022-09-04 13:26 | Hospitalist Progress Note ---
Date of Service September 04, 2022 Assessment & Plan (1) Hematoma of right thigh: Plan: (1)Acute blood loss anemia, likely secondary to right thigh hematoma and left arm hematoma spontaneous, in the setting of Lovenox and Plavix use History of Recurrent DVT, and CVA Plan: Patient presenting from home with reported increased lethargy, taking Lovenox 120mg BID and Plavix As an outpatient, patient has been noted to have a downtrending hemoglobin (11.5 --> 8.0 --> 9.1 --> 8.9 on 07/27). Patient was started on iron replacement. 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 Colonoscopy was considered however patient was felt to not likely be able to tolerate the prep. In the ED, Hgb 5.9. Patient hemodynamically stable. CT abdomen/pelvis/angio: There is a large hematoma involving the medial aspect of the upper thigh measuring approximately 5.5 x 6.5 cm in axial dimension. Questionable heterogeneous density surrounding the right femur are concerning for second hematoma and measuring 5.7 x 5.5 cm in axial dimension. There is no evidence of active bleed. Decrease in left latissimus dorsi hematoma compared with 08/22/2022-resolving hematomas Significant soft tissue swelling throughout the left upper extremity Large foci of heterotopic ossification are again seen around the distal humerus and proximal forearm Remains stable with current comorbid conditions Hemoglobin remains stable at more than 11 as of 09/03/2022-we will continue current dose of Lovenox [facility] surg consulted: no surgery recommended. He was transfused 4 unit of packed RBC; hemoglobin improved to [address] scan of the thigh was done on 08/13; stable size of hematoma. Venous duplex of left arm done on 08/18 shows large complex left axillary fluid collection typical for hematoma. [facility]amma Logist consulted: Dr. Richey- recommend to gradually start Lovenox- 40mg daily, then BID, then 80mg BID. Patient tolerated 2 days of Lovenox 80 mg twice daily; anti-Xa level was obtained on August 16; level was found to be 0.45. Discussion with hematology done again. Recommended to increase Lovenox to 100 mg twice daily and repeat anti-Xa level again. Repeat anti-Xa level was 0.6 which is within therapeutic range. Discussed with hematology again. Recommended to continue same doses. Lovenox is on hold for surgical debridement today and will be restarted in the evening Lovenox has been restarted following surgical debridement Has had debridement yesterday on 09/03/2022-discussed with the surgeon who will do another debridement on Tuesday with instructions for dressing thereafter if the patient goes to rehab on Tuesday or Tuesday Discussed with the in detail On the request of patient's regarding work-up for anemia; GI was informed and patient was planned for colonoscopy as inpatient on 08/19. However, further discussion with the ; she did not want patient to undergo colonoscopy preparation as she feels he is not at his baseline functional status and wants to do as outpatient. 2) Fever likely secondary to Sacral Decub Ulcer Infection Blood culture: Negative Repeat urine culture: Negative Pneumonia ruled out Infected hematoma ruled out by CT Remains afebrile without any evidence of increasing white cell count Has been on ceftriaxone intravenously and also doxycycline, day 8 We will complete a 10-day course of antibiotic No more fever and or chills Sacral decubitus ulcer, stage II; POA Patient had sacral decubital ulcer which developed within 72 hours of hospitalization. s/p 2 bedside debridements by Gen Surg- Fri and Mon Surgical debridement done today Wound is looking much better and no evidence of infection Please see the picture of the sacral wound to have an idea about the status 3 sacral decubiti Further reviewing the chart it was noted that his sacral decubiti was stage II with impending skin breakdown on admission as on 08/13/2022 The sacral wound definitely showed to be stage II on 08/16/2022 Further exposure to underlying tissues noted to be on 08/26/2022 and as of 09/02/2022 the wound is looking to be stage II-III which required couple of times debridement by the surgeon Appreciate care from the surgery and wound care Left sided pleural effusion on room air likely from multiple blood transfusions, IV abx will give Lasix 20mg IV again today (day 3) Chest x-ray showed persistence of pleural effusion mainly on the left side Has been negative fluid balance of about 1800 mL since admission Will give another dose of Lasix of 40 mg today Repeat chest x-ray showed no pleural effusion-Lasix has been stopped (4) Elevated troponin: (5) CAD (coronary artery disease): Plan: Likely due to demand ischemia in the setting of profound anemia Continue beta-josé and statin. Plavix was also restarted. Troponin flat, 1100, 1300, 1000 EKG: No signs of acute ischemia or infarct Echo 45 to 45%, mild apical wall hypokinesis Cardiology service consulted-no further further interventions at this point Possible UTI Urine culture x 2: Baciliog [place] discussed with Erica GIBBS given Dapto x 2 days and completed oral doxycycline course. Hagan cath in place in setting of sacral decubital ulcer. As above has been on ceftriaxone day 8 today (6) Type 2 diabetes mellitus: Plan: Hgb A1c 5.2 06/2022 Lantus 5 units in AM NovoLog per protocol Monitor BSG's closely (7) History of CVA (cerebrovascular accident): Plan: History of recurrent CVA despite DAPT and anticoagulation therapy Chronic right hemiplegia/left arm paralysis/mostly nonverbal/expressive aphasia management of Lovenox + PLavix per above. - Also on a statin. (8) H/O deep venous thrombosis: Plan: History of breakthrough DVT while on warfarin and Eliquis therapy, now on therapeutic dose Lovenox per above (9) HTN (hypertension): Plan: Currently on Coreg. Lisinopril presently on hold. BP stable overall (10) DVT prophylaxis: Plan: on Lovenox BID per above Disposition lives with at home Acute Rehab/SNF upon discharge plan of care discussed with patient's in detail and at length all questions answered she is understanding, agreeable, comfortable with the plan of care A total of 60 minutes spent seeing the patient,examining him, explaining the current medical conditions to the and reviewing the medications with adjustment of the medications. And discussion with the specialist. Admission and Anticipated Discharge Date Admission Date: August 09, 2022 Subjective 330 09/01/2022 The patient was seen and examined in medical telemetry unit He remains stable and is not been communicating Not in any distress No fever and or chills Has a surgical sacral wound debridement today 09/02/2022 The patient was seen and examined in medical telemetry unit in presence of the He remains stable with bedbound status and to ongoing weakness 09/03/2022 The patient was seen and examined in medical telemetry unit He has been stable Not in any distress and denies any significant symptoms 09/04/2022 The patient was seen and examined in medical telemetry unit in presence of the He seems to be unwell today Not in any acute distress and did not have any fever and or chills He will not be moved to third floor today Review of Systems Review of Systems: Unobtainable due to cognitive status Physical Exam Physical Exam: Lying in bed comfortably but looked very ill today without any acute disc Constitutional: well developed, well nourished, + ill appearing and average body habitus Eyes: PERRL, conjunctivae normal, anicteric sclerae ENMT: external ear and nose normal, oropharynx normal Neck: trachea midline, no thyromegaly Respiratory: no respiratory distress Auscultation: + diminished lung sounds (More on the left base than the right) and + crackles (Minimal crackles) Cardiovascular: Rate/Rhythm: regular rate and regular rhythm; not tachycardic Heart Sounds: normal S1, normal S2 and + murmur Extremities: + edema (Bilateral leg edema and also upper extremity edema) Gastrointestinal (Abdomen): Inspection/Auscultation: normal bowel sounds; abdomen not distended Percussion/Palpation: + abdomen tender and abdomen soft Musculoskeletal: No acute arthritis involving any of the joints. He hardly moves any limbs Neurologic: Alert and awake. Nonverbal from repeated stroke. Bedbound status from stroke to. Lymphatic: no cervical or axillary lymphadenopathy Results & Data Results & Data Vital Signs (Past 12 Hours) Vital Signs Temp Pulse Pulse Resp BP BP Pulse Ox 09/04/22 11:04 36.7 C 84 18 114/49 L 95 09/04/22 08:00 88 09/04/22 08:00 09/04/22 07:22 36.9 C 91 H 16 148/77 H 96 09/04/22 03:44 36.5 C 82 16 121/70 95 O2 Del Method 09/04/22 11:04 Room Air 09/04/22 08:00 09/04/22 08:00 Room Air 09/04/22 07:22 Room Air 09/04/22 03:44 Room Air Medications Administered Current Inpatient Medications Acetaminophen (Acetaminophen 325 Mg Tab) 650 mg PO QID SUMA Stop: 09/28/22 11:34 Last Admin: 09/04/22 12:17 Dose: 650 mg Albuterol (Albut/Ipratrop 3mg/0.5mg Neb 3 Ml Vial) 3 ml NEB QIDR PRN; Protocol PRN Reason: Wheezing Stop: 10/01/22 19:30 Atorvastatin Calcium (Atorvastatin 40 Mg Tab) 80 mg PO QPM SUMA Stop: 09/08/22 20:59 Last Admin: 09/03/22 21:21 Dose: 80 mg Baclofen (Baclofen 10 Mg Tab) 5 mg PO QAM [facility]MA Stop: 09/09/22 08:59 Last Admin: 09/04/22 09:16 Dose: 5 mg Carvedilol (Carvedilol 12.5 Mg Tab) 12.5 mg PO BID SUMA Stop: 09/08/22 20:59 Last Admin: 09/04/22 08:58 Dose: 12.5 mg Clopidogrel Bisulfate (Clopidogrel Bisulfate 75 Mg Tab) 75 mg PO QAM [facility] Stop: 09/14/22 14:59 Last Admin: 09/04/22 08:58 Dose: 75 mg Collagenase (Collagenase Oint 30 Gm Tube) 1 appln EXT BID [facility] Stop: 09/19/22 20:59 Last Admin: 09/04/22 08:59 Dose: 1 appln Dextrose (Dextrose 50% 50 Ml Syringe) 25 - 50 ml IV UD PRN; Protocol PRN Reason: Hypoglycemia Protocol Stop: 09/08/22 20:05 Enoxaparin Sodium (Enoxaparin 100 Mg/1ml Syr) 100 mg SQ Q12H [facility]MA Stop: 09/29/22 22:24 Last Admin: 08/31/22 23:00 Dose: 100 mg Folic Acid (Folic Acid 1 Mg Tab) 1 mg PO QAM [facility] Stop: 09/11/22 08:59 Last Admin: 09/04/22 08:58 Dose: 1 mg Glucagon (Glucagon For Inj 1 Mg Vial) 1 mg SQ UD PRN; Protocol PRN Reason: Hypoglycemia Protocol Stop: 09/08/22 20:05 Glucose (Glucose 10 Tab/Tube) 4 - 8 tab PO UD PRN; Protocol PRN Reason: Hypoglycemia Treatment Stop: 09/08/22 20:05 Glucose (Glucose 40% Gel 15 Gm Tube) 15 - 30 gm PO UD PRN; Protocol PRN Reason: Hypoglycemia Protocol Stop: 09/08/22 20:05 Heparin Sodium (Beef Lung) (Heparin 10 Unit/Ml 5 Ml Flush) 5 ml FLUSH PRN PRN PRN Reason: Flush Stop: 09/13/22 11:26 Last Admin: 08/17/22 08:57 Dose: 5 ml Insulin Aspart (Insulin Aspart Per Unit Charge) 0 units SC ACHS [facility] Stop: 09/29/22 11:29 Last Admin: 09/04/22 12:21 Dose: 7 units Insulin Glargine (Lantus Per Unit Charge) 5 units SQ DAILY [facility] Stop: 09/30/22 08:59 Last Admin: 09/04/22 09:00 Dose: 5 units Lactobacillus Acidophilus (Advanced Probiotic 1250 Mg Capsule) 2 cap PO DAILY [facility] Stop: 09/28/22 08:59 Last Admin: 09/04/22 08:58 Dose: 2 cap Magnesium Oxide (Magnesium Oxide 400 Mg Tab) 400 mg PO BID@1100,2200 [facility] Stop: 10/03/22 10:59 Last Admin: 09/04/22 11:21 Dose: 400 mg Miscellaneous (Carbohydrates For Hypoglycemia ) 15 - 30 gm PO UD PRN PRN Reason: Hypoglycemia Protocol Stop: 09/08/22 20:05 Pantoprazole Sodium (Pantoprazole 40 Mg Tab) 40 mg PO BID [facility]MA Stop: 09/16/22 20:59 Last Admin: 09/04/22 08:58 Dose: 40 mg Polyethylene Glycol (Polyethylene (Miralax) 17 Gm Pack) 17 gm PO DAILY [facility] Stop: 09/21/22 13:29 Last Admin: 09/04/22 09:06 Dose: 17 gm Tamsulosin HCl (Tamsulosin Hcl 0.4 Mg Cap) 0.4 mg PO HS [facility] Stop: 09/08/22 20:59 Last Admin: 09/03/22 21:23 Dose: 0.4 mg
[2022-09-04] MEDS: ATORVASTATIN 40 MG TAB PO SCH (21:14)
[2022-09-04] MEDS: TAMSULOSIN HCL 0.4 MG CAP PO SCH (21:15)
[2022-09-04] MEDS ORDERED: KETOROLAC TROMETHAMINE 15 MG/ML VIAL IV ONE (22:38)
[2022-09-05 06:41] LABS: BUN Creatinine Ratio 61.4 (10-20); Calcium 8.4 mg/dl (8.6-10.3); Creatinine Clr Calc Pharmacy 171.8 ml/min; Est GFR (African American) 139.9 ml/min; Est GFR (Non-African American) 120.7 ml/min; Potassium 4.2 mmol/L (3.5-5.1)
[2022-09-05 06:50] LABS: Basophils # (auto) 0.02 K/uL (0-0.2); Basophils % (auto) 0.3 %; Eosinophils # (auto) 0.06 K/uL (0-0.50); Eosinophils % (auto) 0.9 %; Hematocrit (blood only) 38.1 % (42.0-52.0); Hemoglobin 11.6 g/dl (14.0-18.0); Immature Granulocytes # (auto) 0.02 K/uL (0.01-0.20); Immature Granulocytes % (auto) 0.3 %; Lymphocytes # (auto) 1.83 K/uL (1.2-3.4); Lymphocytes % (auto) 26.8 %; Mean Corpuscular Hemoglobin 25.4 pg (25.0-34.0); Mean Corpuscular Hgb Conc 30.4 g/dL (32.0-36.0); Mean Corpuscular Volume 83.4 fL (80.0-100.0); Monocytes # (auto) 0.49 K/uL (0.11-0.59); Monocytes % (auto) 7.2 %; Neutrophils # (auto) 4.42 K/uL (1.40-6.50); Neutrophils % (auto) 64.5 %; Platelet Count 229 K/uL (130-400); RDW Coefficient of Variation 19.1 % (11.5-14.5); RDW Standard Deviation 58.4 fL (36.4-46.3); Red Blood Count 4.57 M/uL (4.70-6.10); White Blood Count 6.84 K/ul (4.8-10.8)
[2022-09-05] MEDS: ACETAMINOPHEN 325 MG TAB PO SCH ×4 (07:57→20:47)
[2022-09-05] MEDS: carvediloL 12.5 MG TAB PO SCH ×2 (07:57→20:47)
[2022-09-05] MEDS: FOLIC ACID 1 MG TAB PO SCH (07:57)
[2022-09-05] MEDS: PANTOprazole 40 MG TAB PO SCH ×2 (07:57→20:47)
[2022-09-05] MEDS: CLOPIDOGREL BISULFATE 75 MG TAB PO SCH (07:57)
[2022-09-05] MEDS: ADVANCED PROBIOTIC 1250 MG CAPSULE PO SCH (07:58)
[2022-09-05] MEDS ORDERED: MAGNESIUM SULFATE / D5W 1 GM/100 ML BAG IV ONE (08:00)
[2022-09-05] MEDS: POLYETHYLENE (MIRALAX) 17 GM PACK PO SCH (08:01)
[2022-09-05] MEDS: BACLOFEN 10 MG TAB PO SCH (08:01)
[2022-09-05] MEDS: COLLAGENASE OINT 30 GM TUBE EXT SCH ×2 (08:09→20:46)
[2022-09-05] MEDS: INSULIN ASPART PER UNIT CHARGE SC SCH ×4 (08:11→20:46)
[2022-09-05] MEDS: LANTUS PER UNIT CHARGE SQ SCH (08:11)
[2022-09-05] MEDS: MAGNESIUM OXIDE 400 MG TAB PO SCH ×2 (12:23→21:01)
--- NOTE | 2022-09-05 14:32 | Hospitalist Progress Note ---
Date of Service September 05, 2022 Assessment & Plan (1) Hematoma of right thigh: Plan: (1)Acute blood loss anemia, likely secondary to right thigh hematoma and left arm hematoma spontaneous, in the setting of Lovenox and Plavix use History of Recurrent DVT, and CVA Plan: Patient presenting from home with reported increased lethargy, taking Lovenox 120mg BID and Plavix As an outpatient, patient has been noted to have a downtrending hemoglobin (11.5 --> 8.0 --> 9.1 --> 8.9 on 07/27). Patient was started on iron replacement. 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 Colonoscopy was considered however patient was felt to not likely be able to tolerate the prep. In the ED, Hgb 5.9. Patient hemodynamically stable. CT abdomen/pelvis/angio: There is a large hematoma involving the medial aspect of the upper thigh measuring approximately 5.5 x 6.5 cm in axial dimension. Questionable heterogeneous density surrounding the right femur are concerning for second hematoma and measuring 5.7 x 5.5 cm in axial dimension. There is no evidence of active bleed. Decrease in left latissimus dorsi hematoma compared with 08/22/2022-resolving hematomas Significant soft tissue swelling throughout the left upper extremity Large foci of heterotopic ossification are again seen around the distal humerus and proximal forearm Remains stable with current comorbid conditions Hemoglobin remains stable at more than 11 as of 09/03/2022-we will continue current dose of Lovenox Remains medically stable [facility] consulted: no surgery recommended. He was transfused 4 unit of packed RBC; hemoglobin improved to [address] scan of the thigh was done on 08/13; stable size of hematoma. Venous duplex of left arm done on 08/18 shows large complex left axillary fluid collection typical for hematoma. 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 Richey- recommend to gradually start Lovenox- 40mg daily, then BID, then 80mg BID. Patient tolerated 2 days of Lovenox 80 mg twice daily; anti-Xa level was obtained on August 16; level was found to be 0.45. Discussion with hematology done again. Recommended to increase Lovenox to 100 mg twice daily and repeat anti-Xa level again. Repeat anti-Xa level was 0.6 which is within therapeutic range. Discussed with hematology again. Recommended to continue same doses. Lovenox is on hold for surgical debridement today and will be restarted in the evening Lovenox has been restarted following surgical debridement Has had debridement yesterday on 09/03/2022-discussed with the surgeon who will do another debridement on Tuesday with instructions for dressing thereafter if the patient goes to rehab on Tuesday or Tuesday Discussed with the in detail On the request of patient's regarding work-up for anemia; GI was informed and patient was planned for colonoscopy as inpatient on 08/19. However, further discussion with the ; she did not want patient to undergo colonoscopy preparation as she feels he is not at his baseline functional status and wants to do as outpatient. 2) Fever likely secondary to Sacral Decub Ulcer Infection Blood culture: Negative Repeat urine culture: Negative Pneumonia ruled out Infected hematoma ruled out by CT Remains afebrile without any evidence of increasing white cell count Has been on ceftriaxone intravenously and also doxycycline, day 8 We will complete a 10-day course of antibiotic Has had fever of 38 C last night None since this morning Will get blood cultures and other blood test Sacral decubitus ulcer, stage II; POA Patient had sacral decubital ulcer which developed within 72 hours of hospitalization. s/p 2 bedside debridements by Gen Surg- Tue and Tue Surgical debridement done today Wound is looking much better and no evidence of infection Please see the picture of the sacral wound to have an idea about the status 3 sacral decubiti Further reviewing the chart it was noted that his sacral decubiti was stage II with impending skin breakdown on admission as on 08/13/2022 The sacral wound definitely showed to be stage II on 08/16/2022 Further exposure to underlying tissues noted to be on 08/26/2022 and as of 09/02/2022 the wound is looking to be stage II-III which required couple of times debridement by the surgeon Appreciate care from the surgery and wound care Will have another debridement on Tuesday Left sided pleural effusion on room air likely from multiple blood transfusions, IV abx will give Lasix 20mg IV again today (day 3) Chest x-ray showed persistence of pleural effusion mainly on the left side Has been negative fluid balance of about 1800 mL since admission Will give another dose of Lasix of 40 mg today Repeat chest x-ray showed no pleural effusion-Lasix has been stopped He may need Lasix periodically (4) Elevated troponin: (5) CAD (coronary artery disease): Plan: Likely due to demand ischemia in the setting of profound anemia Continue beta-josé and statin. Plavix was also restarted. Troponin flat, 1100, 1300, 1000 EKG: No signs of acute ischemia or infarct Echo 45 to 45%, mild apical wall hypokinesis Cardiology service consulted-no further further interventions at this point Possible UTI Urine culture x 2: [place] discussed with Erica GIBBS given Dapto x 2 days and completed oral doxycycline course. Hagan cath in place in setting of sacral decubital ulcer. As above has been on ceftriaxone day 8 today Antibiotic course is done (6) Type 2 diabetes mellitus: Plan: Hgb A1c 5.2 06/2022 Lantus 5 units in AM NovoLog per protocol Monitor BSG's closely (7) History of CVA (cerebrovascular accident): Plan: History of recurrent CVA despite DAPT and anticoagulation therapy Chronic right hemiplegia/left arm paralysis/mostly nonverbal/expressive aphasia management of Lovenox + PLavix per above. - Also on a statin. (8) H/O deep venous thrombosis: Plan: History of breakthrough DVT while on warfarin and Eliquis therapy, now on therapeutic dose Lovenox per above (9) HTN (hypertension): Plan: Currently on Coreg. Lisinopril presently on hold. BP stable overall (10) DVT prophylaxis: Plan: on Lovenox BID per above Disposition lives with at home Acute Rehab/SNF upon discharge plan of care discussed with patient's in detail and at length all questions answered she is understanding, agreeable, comfortable with the plan of care A total of 45 minutes spent seeing the patient,examining him, explaining the current medical conditions to the and reviewing the medications with adjustment of the medications. Admission and Anticipated Discharge Date Admission Date: August 09, 2022 Subjective 330 09/01/2022 The patient was seen and examined in medical telemetry unit He remains stable and is not been communicating Not in any distress No fever and or chills Has a surgical sacral wound debridement today 09/02/2022 The patient was seen and examined in medical telemetry unit in presence of the He remains stable with bedbound status and to ongoing weakness 09/03/2022 The patient was seen and examined in medical telemetry unit He has been stable Not in any distress and denies any significant symptoms 09/04/2022 The patient was seen and examined in medical telemetry unit in presence of the He seems to be unwell today Not in any acute distress and did not have any fever and or chills He will not be moved to third floor today 09/05/2022 The patient was seen and examined in medical telemetry unit He has been sleeping throughout the whole day Does not have any acute distress Review of Systems Review of Systems: all noted and negative except for above Physical Exam Physical Exam: Lying in bed comfortably but looked very ill today without any acute disc Constitutional: well developed, well nourished, + ill appearing and average body habitus Eyes: PERRL, conjunctivae normal, anicteric sclerae ENMT: external ear and nose normal, oropharynx normal Neck: trachea midline, no thyromegaly Respiratory: no respiratory distress Auscultation: + diminished lung sounds (More on the left base than the right) and + crackles (Minimal crackles) Cardiovascular: Rate/Rhythm: regular rate and regular rhythm; not tachycardic Heart Sounds: normal S1, normal S2 and + murmur Extremities: + edema (Bilateral leg edema and also upper extremity edema) Gastrointestinal (Abdomen): Inspection/Auscultation: normal bowel sounds; abdomen not distended Percussion/Palpation: + abdomen tender and abdomen soft Musculoskeletal: No acute arthritis involving any joint Neurologic: Alert and awake. A fascia with bedbound status Lymphatic: no cervical or axillary lymphadenopathy Results & Data Results & Data Vital Signs (Past 12 Hours) Vital Signs Temp Pulse Pulse Resp BP BP Pulse Ox 09/05/22 11:09 36.9 C 71 16 126/69 98 09/05/22 09:30 09/05/22 08:00 09/05/22 09:06 79 09/05/22 07:47 36.9 C 79 18 122/51 L 97 09/05/22 03:53 36.8 C 85 18 97/46 L 96 O2 Del Method 09/05/22 11:09 Room Air 09/05/22 09:30 Room Air 09/05/22 08:00 Room Air 09/05/22 09:06 09/05/22 07:47 Room Air 09/05/22 03:53 Room Air Laboratory Results Short CBC 09/05/22 Range/Units 06:04 WBC 6.84 (4.8-10.8) K/ul Hgb 11.6 L (14.0-18.0) g/dl Hct 38.1 L (42.0-52.0) % Plt Count 229 (130-400) K/uL BMP 09/05/22 06:04 Sodium 140 Potassium 4.2 Chloride 106 Carbon Dioxide 28 BUN 27 H Creatinine 0.44 L Glucose 171 H Calcium 8.4 L Medications Administered Current Inpatient Medications Acetaminophen (Acetaminophen 325 Mg Tab) 650 mg PO QID SUMA Stop: 09/28/22 11:34 Last Admin: 09/05/22 12:23 Dose: 650 mg Albuterol (Albut/Ipratrop 3mg/0.5mg Neb 3 Ml Vial) 3 ml NEB QIDR PRN; Protocol PRN Reason: Wheezing Stop: 10/01/22 19:30 Atorvastatin Calcium (Atorvastatin 40 Mg Tab) 80 mg PO QPM SUMA Stop: 09/08/22 20:59 Last Admin: 09/04/22 21:14 Dose: 80 mg Baclofen (Baclofen 10 Mg Tab) 5 mg PO QAM SUMA Stop: 09/09/22 08:59 Last Admin: 09/05/22 08:01 Dose: 5 mg Carvedilol (Carvedilol 12.5 Mg Tab) 12.5 mg PO BID SUMA Stop: 09/08/22 20:59 Last Admin: 09/05/22 07:57 Dose: 12.5 mg Clopidogrel Bisulfate (Clopidogrel Bisulfate 75 Mg Tab) 75 mg PO QAM SUMA Stop: 09/14/22 14:59 Last Admin: 09/05/22 07:57 Dose: 75 mg Collagenase (Collagenase Oint 30 Gm Tube) 1 appln EXT BID SUMA Stop: 09/19/22 20:59 Last Admin: 09/05/22 08:09 Dose: 1 appln Dextrose (Dextrose 50% 50 Ml Syringe) 25 - 50 ml IV UD PRN; Protocol PRN Reason: Hypoglycemia Protocol Stop: 09/08/22 20:05 Enoxaparin Sodium (Enoxaparin 100 Mg/1ml Syr) 100 mg SQ Q12H SUMA Stop: 09/29/22 22:24 Last Admin: 08/31/22 23:00 Dose: 100 mg Folic Acid (Folic Acid 1 Mg Tab) 1 mg PO QAM SUMA Stop: 09/11/22 08:59 Last Admin: 09/05/22 07:57 Dose: 1 mg Glucagon (Glucagon For Inj 1 Mg Vial) 1 mg SQ UD PRN; Protocol PRN Reason: Hypoglycemia Protocol Stop: 09/08/22 20:05 Glucose (Glucose 10 Tab/Tube) 4 - 8 tab PO UD PRN; Protocol PRN Reason: Hypoglycemia Treatment Stop: 09/08/22 20:05 Glucose (Glucose 40% Gel 15 Gm Tube) 15 - 30 gm PO UD PRN; Protocol PRN Reason: Hypoglycemia Protocol Stop: 09/08/22 20:05 Heparin Sodium (Beef Lung) (Heparin 10 Unit/Ml 5 Ml Flush) 5 ml FLUSH PRN PRN PRN Reason: Flush Stop: 09/13/22 11:26 Last Admin: 08/17/22 08:57 Dose: 5 ml Insulin Aspart (Insulin Aspart Per Unit Charge) 0 units SC ACHS SUMA Stop: 09/29/22 11:29 Last Admin: 09/05/22 12:23 Dose: 12 units Insulin Glargine (Lantus Per Unit Charge) 5 units SQ DAILY SUMA Stop: 09/30/22 08:59 Last Admin: 09/05/22 08:11 Dose: 5 units Lactobacillus Acidophilus (Advanced Probiotic 1250 Mg Capsule) 2 cap PO DAILY SUMA Stop: 09/28/22 08:59 Last Admin: 09/05/22 07:58 Dose: 2 cap Magnesium Oxide (Magnesium Oxide 400 Mg Tab) 400 mg PO BID@1100,2200 SUMA Stop: 10/03/22 10:59 Last Admin: 09/05/22 12:23 Dose: 400 mg Miscellaneous (Carbohydrates For Hypoglycemia ) 15 - 30 gm PO UD PRN PRN Reason: Hypoglycemia Protocol Stop: 09/08/22 20:05 Pantoprazole Sodium (Pantoprazole 40 Mg Tab) 40 mg PO BID SUMA Stop: 09/16/22 20:59 Last Admin: 09/05/22 07:57 Dose: 40 mg Polyethylene Glycol (Polyethylene (Miralax) 17 Gm Pack) 17 gm PO DAILY SUMA Stop: 09/21/22 13:29 Last Admin: 09/05/22 08:01 Dose: 17 gm Tamsulosin HCl (Tamsulosin Hcl 0.4 Mg Cap) 0.4 mg PO HS SUMA Stop: 09/08/22 20:59 Last Admin: 09/04/22 21:15 Dose: 0.4 mg
[2022-09-05] MEDS: ATORVASTATIN 40 MG TAB PO SCH (20:46)
[2022-09-05] MEDS: TAMSULOSIN HCL 0.4 MG CAP PO SCH (20:47)
[2022-09-06] MEDS: PANTOprazole 40 MG TAB PO SCH ×2 (08:27→21:06)
[2022-09-06] MEDS: FOLIC ACID 1 MG TAB PO SCH (08:27)
[2022-09-06] MEDS: CLOPIDOGREL BISULFATE 75 MG TAB PO SCH (08:28)
[2022-09-06] MEDS: ADVANCED PROBIOTIC 1250 MG CAPSULE PO SCH (08:28)
[2022-09-06] MEDS: carvediloL 12.5 MG TAB PO SCH ×2 (08:28→21:05)
[2022-09-06] MEDS: ACETAMINOPHEN 325 MG TAB PO SCH ×4 (08:28→21:04)
[2022-09-06] MEDS: POLYETHYLENE (MIRALAX) 17 GM PACK PO SCH (08:29)
[2022-09-06] MEDS: BACLOFEN 10 MG TAB PO SCH (08:29)
[2022-09-06] MEDS: COLLAGENASE OINT 30 GM TUBE EXT SCH ×2 (08:30→21:13)
[2022-09-06] MEDS: INSULIN ASPART PER UNIT CHARGE SC SCH ×4 (08:37→21:05)
[2022-09-06] MEDS: LANTUS PER UNIT CHARGE SQ SCH (08:38)
[2022-09-06] MEDS: MAGNESIUM OXIDE 400 MG TAB PO SCH ×2 (12:09→21:06)
--- NOTE | 2022-09-06 16:16 | Hospitalist Progress Note ---
Date of Service September 06, 2022 Assessment & Plan (1) Hematoma of right thigh: Plan: (1)Acute blood loss anemia, likely secondary to right thigh hematoma and left arm hematoma spontaneous, in the setting of Lovenox and Plavix use History of Recurrent DVT, and CVA Plan: Patient presenting from home with reported increased lethargy, taking Lovenox 120mg BID and Plavix As an outpatient, patient has been noted to have a downtrending hemoglobin (11.5 --> 8.0 --> 9.1 --> 8.9 on 07/27). Patient was started on iron replacement. 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 Colonoscopy was considered however patient was felt to not likely be able to tolerate the prep. In the ED, Hgb 5.9. Patient hemodynamically stable. CT abdomen/pelvis/angio: There is a large hematoma involving the medial aspect of the upper thigh measuring approximately 5.5 x 6.5 cm in axial dimension. Questionable heterogeneous density surrounding the right femur are concerning for second hematoma and measuring 5.7 x 5.5 cm in axial dimension. There is no evidence of active bleed. Decrease in left latissimus dorsi hematoma compared with 08/22/2022-resolving hematomas Significant soft tissue swelling throughout the left upper extremity Large foci of heterotopic ossification are again seen around the distal humerus and proximal forearm Remains stable with current comorbid conditions Hemoglobin remains stable at more than 11 as of 09/03/2022-we will continue current dose of Lovenox [facility] consulted: no surgery recommended. He was transfused 4 unit of packed RBC; hemoglobin improved to [address] scan of the thigh was done on 08/13; stable size of hematoma. Venous duplex of left arm done on 08/18 shows large complex left axillary fluid collection typical for hematoma. [employer]or[employer] Designer consulted: Dr. Richey- recommend to gradually start Lovenox- 40mg daily, then BID, then 80mg BID. Patient tolerated 2 days of Lovenox 80 mg twice daily; anti-Xa level was obtained on August 16; level was found to be 0.45. Discussion with hematology done again. Recommended to increase Lovenox to 100 mg twice daily and repeat anti-Xa level again. Repeat anti-Xa level was 0.6 which is within therapeutic range. Discussed with hematology again. Recommended to continue same doses. Lovenox is on hold for surgical debridement today and will be restarted in the evening Lovenox has been restarted following surgical debridement Has had debridement yesterday on 09/03/2022-discussed with the surgeon who will do another debridement on Tuesday with instructions for dressing thereafter if the patient goes to rehab on Tuesday or Tuesday Discussed with the in detail The surgeon has to do another I&D today for 323- On the request of patient's regarding work-up for anemia; GI was informed and patient was planned for colonoscopy as inpatient on 08/19. However, further discussion with the ; she did not want patient to undergo colonoscopy preparation as she feels he is not at his baseline functional status and wants to do as outpatient. 2) Fever likely secondary to Sacral Decub Ulcer Infection Blood culture: Negative Repeat urine culture: Negative Pneumonia ruled out Infected hematoma ruled out by CT Remains afebrile without any evidence of increasing white cell count Has been on ceftriaxone intravenously and also doxycycline, day 8 We will complete a 10-day course of antibiotic Has had fever of 38 C last night None since this morning Will get blood cultures and other blood test-blood cultures pending Denies any fever and or chills Sacral decubitus ulcer, stage II; POA Patient had sacral decubital ulcer which developed within 72 hours of hospitalization. s/p 2 bedside debridements by Gen Surg- Tue and Tue Surgical debridement done today Wound is looking much better and no evidence of infection Please see the picture of the sacral wound to have an idea about the status 3 sacral decubiti Further reviewing the chart it was noted that his sacral decubiti was stage II with impending skin breakdown on admission as on 08/13/2022 The sacral wound definitely showed to be stage II on 08/16/2022 Further exposure to underlying tissues noted to be on 08/26/2022 and as of 09/02/2022 the wound is looking to be stage II-III which required couple of times debridement by the surgeon Appreciate care from the surgery and wound care Will have another debridement on Tuesday Left sided pleural effusion on room air likely from multiple blood transfusions, IV abx will give Lasix 20mg IV again today (day 3) Chest x-ray showed persistence of pleural effusion mainly on the left side Has been negative fluid balance of about 1800 mL since admission Will give another dose of Lasix of 40 mg today Repeat chest x-ray showed no pleural effusion-Lasix has been stopped He may need Lasix periodically Chest remains clear (4) Elevated troponin: (5) CAD (coronary artery disease): Plan: Likely due to demand ischemia in the setting of profound anemia Continue beta-josé and statin. Plavix was also restarted. Troponin flat, 1100, 1300, 1000 EKG: No signs of acute ischemia or infarct Echo 45 to 45%, mild apical wall hypokinesis Cardiology service consulted-no further further interventions at this point Possible UTI Urine culture x 2: [place] discussed with Erica GIBBS given Dapto x 2 days and completed oral doxycycline course. Hagan cath in place in setting of sacral decubital ulcer. As above has been on ceftriaxone day 8 today Antibiotic course is done (6) Type 2 diabetes mellitus: Plan: Hgb A1c 5.2 06/2022 Lantus 5 units in AM NovoLog per protocol Monitor BSG's closely (7) History of CVA (cerebrovascular accident): Plan: History of recurrent CVA despite DAPT and anticoagulation therapy Chronic right hemiplegia/left arm paralysis/mostly nonverbal/expressive aphasia management of Lovenox + PLavix per above. - Also on a statin. (8) H/O deep venous thrombosis: Plan: History of breakthrough DVT while on warfarin and Eliquis therapy, now on therapeutic dose Lovenox per above (9) HTN (hypertension): Plan: Currently on Coreg. Lisinopril presently on hold. BP stable overall (10) DVT prophylaxis: Plan: on Lovenox BID per above Disposition lives with at home Acute Rehab/SNF upon discharge plan of care discussed with patient's in detail and at length all questions answered she is understanding, agreeable, comfortable with the plan of care A total of 45 minutes spent seeing the patient,examining him, explaining the current medical conditions to the and reviewing the medications with adjustment of the medications. Admission and Anticipated Discharge Date Admission Date: August 09, 2022 Subjective 330 09/01/2022 The patient was seen and examined in medical telemetry unit He remains stable and is not been communicating Not in any distress No fever and or chills Has a surgical sacral wound debridement today 09/02/2022 The patient was seen and examined in medical telemetry unit in presence of the He remains stable with bedbound status and to ongoing weakness 09/03/2022 The patient was seen and examined in medical telemetry unit He has been stable Not in any distress and denies any significant symptoms 09/04/2022 The patient was seen and examined in medical telemetry unit in presence of the He seems to be unwell today Not in any acute distress and did not have any fever and or chills He will not be moved to third floor today 09/05/2022 The patient was seen and examined in medical telemetry unit He has been sleeping throughout the whole day Does not have any acute distress 09/06/2022 The patient was seen and examined in medical telemetry unit He has been stable and not in any acute distress Review of Systems Review of Systems: all noted and negative except for above Physical Exam Physical Exam: Lying in bed comfortably and does not have any acute distress Constitutional: well developed, well nourished, + ill appearing and average body habitus Eyes: PERRL, conjunctivae normal, anicteric sclerae ENMT: external ear and nose normal, oropharynx normal Neck: trachea midline, no thyromegaly Respiratory: no respiratory distress Auscultation: + diminished lung sounds (More on the left base than the right) and + crackles (Minimal crackles) Cardiovascular: Rate/Rhythm: regular rate and regular rhythm; not tachycardic Heart Sounds: normal S1, normal S2 and + murmur Extremities: + edema (Bilateral leg edema and also upper extremity edema) Gastrointestinal (Abdomen): Inspection/Auscultation: normal bowel sounds; abdomen not distended Percussion/Palpation: + abdomen tender and abdomen soft Musculoskeletal: Has flexural deformities involving the extremities from chronic nonuse and also has atrophic Neurologic: Alert and awake. Nonverbal. Cannot move extremities Lymphatic: no cervical or axillary lymphadenopathy Results & Data Results & Data Vital Signs (Past 12 Hours) Vital Signs Temp Pulse Pulse Resp BP BP Pulse Ox 09/06/22 14:03 79 09/06/22 15:22 36.9 C 76 18 107/64 97 09/06/22 11:30 37 C 76 20 101/40 L 98 09/06/22 08:00 09/06/22 08:03 83 09/06/22 07:53 36.1 C L 86 24 159/74 H 96 09/06/22 06:30 36.5 C 09/06/22 04:44 37.4 C 94 H 16 103/68 96 O2 Del Method 09/06/22 14:03 09/06/22 15:22 Room Air 09/06/22 11:30 Room Air 09/06/22 08:00 Room Air 09/06/22 08:03 09/06/22 07:53 Room Air 09/06/22 06:30 09/06/22 04:44 Room Air Medications Administered Current Inpatient Medications Acetaminophen (Acetaminophen 325 Mg Tab) 650 mg PO QID SUMA Stop: 09/28/22 11:34 Last Admin: 09/06/22 12:09 Dose: 650 mg Albuterol (Albut/Ipratrop 3mg/0.5mg Neb 3 Ml Vial) 3 ml NEB QIDR PRN; Protocol PRN Reason: Wheezing Stop: 10/01/22 19:30 Atorvastatin Calcium (Atorvastatin 40 Mg Tab) 80 mg PO QPM SUMA Stop: 09/08/22 20:59 Last Admin: 09/05/22 20:46 Dose: 80 mg Baclofen (Baclofen 10 Mg Tab) 5 mg PO QAM SUMA Stop: 09/09/22 08:59 Last Admin: 09/06/22 08:29 Dose: 5 mg Carvedilol (Carvedilol 12.5 Mg Tab) 12.5 mg PO BID SUMA Stop: 09/08/22 20:59 Last Admin: 09/06/22 08:28 Dose: 12.5 mg Clopidogrel Bisulfate (Clopidogrel Bisulfate 75 Mg Tab) 75 mg PO QAM SUMA Stop: 09/14/22 14:59 Last Admin: 09/06/22 08:28 Dose: 75 mg Collagenase (Collagenase Oint 30 Gm Tube) 1 appln EXT BID SUMA Stop: 09/19/22 20:59 Last Admin: 09/06/22 08:30 Dose: 1 appln Dextrose (Dextrose 50% 50 Ml Syringe) 25 - 50 ml IV UD PRN; Protocol PRN Reason: Hypoglycemia Protocol Stop: 09/08/22 20:05 Enoxaparin Sodium (Enoxaparin 100 Mg/1ml Syr) 100 mg SQ Q12H SUMA Stop: 09/29/22 22:24 Last Admin: 08/31/22 23:00 Dose: 100 mg Folic Acid (Folic Acid 1 Mg Tab) 1 mg PO QAM SUMA Stop: 09/11/22 08:59 Last Admin: 09/06/22 08:27 Dose: 1 mg Glucagon (Glucagon For Inj 1 Mg Vial) 1 mg SQ UD PRN; Protocol PRN Reason: Hypoglycemia Protocol Stop: 09/08/22 20:05 Glucose (Glucose 10 Tab/Tube) 4 - 8 tab PO UD PRN; Protocol PRN Reason: Hypoglycemia Treatment Stop: 09/08/22 20:05 Glucose (Glucose 40% Gel 15 Gm Tube) 15 - 30 gm PO UD PRN; Protocol PRN Reason: Hypoglycemia Protocol Stop: 09/08/22 20:05 Heparin Sodium (Beef Lung) (Heparin 10 Unit/Ml 5 Ml Flush) 5 ml FLUSH PRN PRN PRN Reason: Flush Stop: 09/13/22 11:26 Last Admin: 08/17/22 08:57 Dose: 5 ml Insulin Aspart (Insulin Aspart Per Unit Charge) 0 units SC ACHS SUMA Stop: 09/29/22 11:29 Last Admin: 09/06/22 12:14 Dose: 11 units Insulin Glargine (Lantus Per Unit Charge) 5 units SQ DAILY SUMA Stop: 09/30/22 08:59 Last Admin: 09/06/22 08:38 Dose: 5 units Lactobacillus Acidophilus (Advanced Probiotic 1250 Mg Capsule) 2 cap PO DAILY SUMA Stop: 09/28/22 08:59 Last Admin: 09/06/22 08:28 Dose: 2 cap Magnesium Oxide (Magnesium Oxide 400 Mg Tab) 400 mg PO BID@1100,2200 SUMA Stop: 10/03/22 10:59 Last Admin: 09/06/22 12:09 Dose: 400 mg Miscellaneous (Carbohydrates For Hypoglycemia ) 15 - 30 gm PO UD PRN PRN Reason: Hypoglycemia Protocol Stop: 09/08/22 20:05 Pantoprazole Sodium (Pantoprazole 40 Mg Tab) 40 mg PO BID SUMA Stop: 09/16/22 20:59 Last Admin: 09/06/22 08:27 Dose: 40 mg Polyethylene Glycol (Polyethylene (Miralax) 17 Gm Pack) 17 gm PO DAILY SUMA Stop: 09/21/22 13:29 Last Admin: 09/06/22 08:29 Dose: Not Given Tamsulosin HCl (Tamsulosin Hcl 0.4 Mg Cap) 0.4 mg PO HS SUMA Stop: 09/08/22 20:59 Last Admin: 09/05/22 20:47 Dose: 0.4 mg
--- NOTE | 2022-09-06 19:59 | Surgery Progress Note ---
Date of Service September 06, 2022 Assessment & Plan (1) Sacral wound: Plan: Plan for bedside debridement tomorrow. Admission and Anticipated Discharge Date Admission Date: August 09, 2022 Subjective Pt seen and examined, unchanged. Physical Exam Skin: Dressings changed. soft slough present. The wound was washed with soap and water. Few areas of full thickness necrotic tissue remaining at the superior aspectof the wound edge and a small 5mm area at the right edge of the wound. Results & Data Vital Signs (Past 12 Hours) Vital Signs Temp Pulse Pulse Resp BP BP Pulse Ox 09/06/22 19:09 36.8 C 82 18 117/53 L 97 09/06/22 17:40 09/06/22 14:03 79 09/06/22 15:22 36.9 C 76 18 107/64 97 09/06/22 11:30 37 C 76 20 101/40 L 98 09/06/22 08:00 09/06/22 08:03 83 09/06/22 07:53 36.1 C L 86 24 159/74 H 96 O2 Del Method 09/06/22 19:09 Room Air 09/06/22 17:40 Room Air 09/06/22 14:03 09/06/22 15:22 Room Air 09/06/22 11:30 Room Air 09/06/22 08:00 Room Air 09/06/22 08:03 09/06/22 07:53 Room Air PG Care Time/CCT Total # of Minutes Spent Total Time Spent with Patient: Total time spent is greater than 50% in coordination of care (as documented) at patient's floor/unit and/or counseling patient: Coding Level of Care Code 32099 SUB INP/OBS CARE 2/35MIN Diagnoses Sacral wound S31.000A
[2022-09-06] MEDS: ATORVASTATIN 40 MG TAB PO SCH (21:05)
[2022-09-06] MEDS: TAMSULOSIN HCL 0.4 MG CAP PO SCH (21:06)
[2022-09-06] MEDS: ENOXAPARIN 100 MG/1ML SYR SQ SCH (22:43)
[2022-09-07 06:33] LABS: Basophils # (auto) 0.04 K/uL (0-0.2); Basophils % (auto) 0.6 %; Eosinophils # (auto) 0.14 K/uL (0-0.50); Eosinophils % (auto) 1.9 %; Hematocrit (blood only) 37.5 % (42.0-52.0); Hemoglobin 11.5 g/dl (14.0-18.0); Immature Granulocytes # (auto) 0.03 K/uL (0.01-0.20); Immature Granulocytes % (auto) 0.4 %; Lymphocytes # (auto) 1.64 K/uL (1.2-3.4); Lymphocytes % (auto) 22.7 %; Mean Corpuscular Hemoglobin 25.4 pg (25.0-34.0); Mean Corpuscular Hgb Conc 30.7 g/dL (32.0-36.0); Mean Platelet Volume 10.8 fL (9.4-12.4); Monocytes # (auto) 0.41 K/uL (0.11-0.59); Monocytes % (auto) 5.7 %; Neutrophils # (auto) 4.98 K/uL (1.40-6.50); Neutrophils % (auto) 68.7 %; Platelet Count 272 K/uL (130-400); RDW Coefficient of Variation 18.8 % (11.5-14.5); RDW Standard Deviation 57.3 fL (36.4-46.3); Red Blood Count 4.52 M/uL (4.70-6.10); White Blood Count 7.24 K/ul (4.8-10.8)
[2022-09-07 07:00] LABS: BUN Creatinine Ratio 68.3 (10-20); Calcium 8.5 mg/dl (8.6-10.3); Creatinine Clr Calc Pharmacy 184.9 ml/min; Est GFR (Non-African American) 124.3 ml/min; Potassium 4.4 mmol/L (3.5-5.1)
[2022-09-07] MEDS: INSULIN ASPART PER UNIT CHARGE SC SCH ×4 (08:46→20:02)
[2022-09-07] MEDS: COLLAGENASE OINT 30 GM TUBE EXT SCH ×2 (08:46→20:09)
[2022-09-07] MEDS: ACETAMINOPHEN 325 MG TAB PO SCH ×4 (08:47→20:00)
[2022-09-07] MEDS: PANTOprazole 40 MG TAB PO SCH ×2 (08:47→20:01)
[2022-09-07] MEDS: carvediloL 12.5 MG TAB PO SCH ×2 (08:47→20:00)
[2022-09-07] MEDS: CLOPIDOGREL BISULFATE 75 MG TAB PO SCH (08:48)
[2022-09-07] MEDS: POLYETHYLENE (MIRALAX) 17 GM PACK PO SCH (08:48)
[2022-09-07] MEDS: FOLIC ACID 1 MG TAB PO SCH (08:48)
[2022-09-07] MEDS: ADVANCED PROBIOTIC 1250 MG CAPSULE PO SCH (08:48)
[2022-09-07] MEDS: LANTUS PER UNIT CHARGE SQ SCH (08:52)
[2022-09-07] MEDS: BACLOFEN 10 MG TAB PO SCH (08:52)
[2022-09-07] MEDS: ENOXAPARIN 100 MG/1ML SYR SQ SCH ×2 (09:21→22:03)
[2022-09-07] MEDS: MAGNESIUM OXIDE 400 MG TAB PO SCH ×2 (12:59→21:47)
--- NOTE | 2022-09-07 19:08 | Surgery Progress Note ---
Date of Service September 07, 2022 Assessment & Plan (1) Sacral wound: Plan: The wound was debrided again at the bedside and irrigated. Redressed with Santyl and damp to dry dressing. Admission and Anticipated Discharge Date Admission Date: August 09, 2022 Subjective Patient seen, unchanged. Physical Exam Skin: Less slough over the wound today. Few areas of necrotic tissue remaining mostly at around the central aspect of the wound (over the sacrum). There is some superficial patchy necrosis on the more superficial areas of the wound at the inferior aspects over the buttocks. Results & Data Vital Signs (Past 12 Hours) Vital Signs Temp Pulse Pulse Resp BP Pulse Ox O2 Del Method 09/07/22 15:45 77 09/07/22 15:22 37.2 C 79 20 137/65 96 Room Air 09/07/22 12:03 Room Air 09/07/22 11:22 37.1 C 80 20 105/43 L 96 Room Air 09/07/22 07:38 37.3 C 82 20 134/66 97 Room Air 09/07/22 07:14 83 PG Care Time/CCT Total # of Minutes Spent Total Time Spent with Patient: Total time spent is greater than 50% in coordination of care (as documented) at patient's floor/unit and/or counseling patient: Coding Level of Care Code 05763 SUB INP/OBS CARE 3/50MIN Diagnoses Sacral wound S31.000A
[2022-09-07] MEDS: TAMSULOSIN HCL 0.4 MG CAP PO SCH (20:01)
[2022-09-07] MEDS: ATORVASTATIN 40 MG TAB PO SCH (20:01)
[2022-09-08] MEDS: BACLOFEN 10 MG TAB PO SCH (08:42)
[2022-09-08] MEDS: INSULIN ASPART PER UNIT CHARGE SC SCH ×4 (08:42→21:25)
[2022-09-08] MEDS: COLLAGENASE OINT 30 GM TUBE EXT SCH ×2 (08:43→20:01)
[2022-09-08] MEDS: ACETAMINOPHEN 325 MG TAB PO SCH ×4 (08:43→20:00)
[2022-09-08] MEDS: LANTUS PER UNIT CHARGE SQ SCH (08:43)
[2022-09-08] MEDS: carvediloL 12.5 MG TAB PO SCH (08:43)
[2022-09-08] MEDS: FOLIC ACID 1 MG TAB PO SCH (08:44)
[2022-09-08] MEDS: CLOPIDOGREL BISULFATE 75 MG TAB PO SCH (08:44)
[2022-09-08] MEDS: PANTOprazole 40 MG TAB PO SCH ×2 (08:44→20:01)
[2022-09-08] MEDS: ADVANCED PROBIOTIC 1250 MG CAPSULE PO SCH (08:44)
[2022-09-08] MEDS: POLYETHYLENE (MIRALAX) 17 GM PACK PO SCH (08:44)
[2022-09-08] MEDS: MAGNESIUM OXIDE 400 MG TAB PO SCH ×2 (10:20→21:25)
--- NOTE | 2022-09-08 10:22 | Surgery Progress Note ---
Date of Service September 08, 2022 Assessment & Plan (1) Sacral wound: Plan: A wound culture was obtained this am as the patient is off of previous antibiotics today. Recommend starting empiric antibiotics and F/U wound cultures. The dressings were changed again this am. Plan to obtain surgical instruments for bedside wound debridement tomorrow and apply a wound vac after the next debridement. This plan was discussed with his and the medical attending. Admission and Anticipated Discharge Date Admission Date: August 09, 2022 Subjective The patient was seen and examined this am. Febrile this am. Physical Exam Skin: Areas of demarcation of necrotic tissue around the central aspect of the wound overlying the sacrum. Slough loosening over small parts of the inferior aspect of the wound at the buttocks but still some patchy thicker yellow necrotic tissue/slough at this area and the dressing is no longer sticking to these areas as the previous damp to dry dressings did. The wound is stable overall. Results & Data Vital Signs (Past 12 Hours) Vital Signs Temp Pulse Pulse Resp BP BP Pulse Ox 09/08/22 07:43 37.8 C H 92 H 16 114/63 95 09/08/22 06:58 83 09/08/22 03:40 36.8 C 91 H 20 158/84 H 97 09/07/22 23:36 77 09/07/22 22:40 37.1 C 75 17 115/67 96 O2 Del Method 09/08/22 07:43 Room Air 09/08/22 06:58 09/08/22 03:40 Room Air 09/07/22 23:36 09/07/22 22:40 Room Air PG Care Time/CCT Total # of Minutes Spent Total Time Spent with Patient: Total time spent is greater than 50% in coordination of care (as documented) at patient's floor/unit and/or counseling patient: Coding Level of Care Code 37723 SUB INP/OBS CARE 2/35MIN Diagnoses Sacral wound S31.000A
[2022-09-08] MEDS: metroNIDAZOLE 500 MG/100 ML BAG IV SCH ×2 (12:34→18:14)
[2022-09-08] MEDS: CEFEPIME 2,000 MG in SYRINGE 0 ML IV SCH ×2 (12:34→19:58)
--- NOTE | 2022-09-08 16:49 | Hospitalist Progress Note ---
Date of Service September 08, 2022 Assessment & Plan (1) Hematoma of right thigh: Plan: per previous hospitalist notes with addendum: (1)Acute blood loss anemia, likely secondary to right thigh hematoma and left arm hematoma spontaneous, in the setting of Lovenox and Plavix use History of Recurrent DVT, and CVA Plan: Patient presenting from home with reported increased lethargy, taking Lovenox 120mg BID and Plavix As an outpatient, patient has been noted to have a downtrending hemoglobin (11.5 --> 8.0 --> 9.1 --> 8.9 on 07/27). Patient was started on iron replacement. 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 Colonoscopy was considered however patient was felt to not likely be able to tolerate the prep. In the ED, Hgb 5.9. Patient hemodynamically stable. CT abdomen/pelvis/angio: There is a large hematoma involving the medial aspect of the upper thigh measuring approximately 5.5 x 6.5 cm in axial dimension. Questionable heterogeneous density surrounding the right femur are concerning for second hematoma and measuring 5.7 x 5.5 cm in axial dimension. There is no evidence of active bleed. Decrease in left latissimus dorsi hematoma compared with 08/22/2022-resolving hematomas Significant soft tissue swelling throughout the left upper extremity Large foci of heterotopic ossification are again seen around the distal humerus and proximal forearm Remains stable with current comorbid conditions Hemoglobin remains stable at more than 11 as of 09/03/2022-we will continue current dose of Lovenox [facility] consulted: no surgery recommended. He was transfused 4 unit of packed RBC; hemoglobin improved to [address] scan of the thigh was done on 08/13; stable size of hematoma. Venous duplex of left arm done on 08/18 shows large complex left axillary fluid collection typical for hematoma. Mine Engineering Supervisor consulted: Dr. Richey- recommend to gradually start Lovenox- 40mg daily, then BID, then 80mg BID. Patient tolerated 2 days of Lovenox 80 mg twice daily; anti-Xa level was obtained on August 16; level was found to be 0.45. Discussion with hematology done again. Recommended to increase Lovenox to 100 mg twice daily and repeat anti-Xa level again. Repeat anti-Xa level was 0.6 which is within therapeutic range. Discussed with hematology again. Recommended to continue same doses. Lovenox is on hold for surgical debridement today and will be restarted in the evening Lovenox has been restarted following surgical debridement Has had debridement yesterday on 09/03/2022-discussed with the surgeon who will do another debridement on Tuesday with instructions for dressing thereafter if the patient goes to rehab on Tuesday or Tuesday Discussed with the in detail The surgeon has to do another I&D today for 323- On the request of patient's regarding work-up for anemia; GI was informed and patient was planned for colonoscopy as inpatient on 08/19. However, further discussion with the ; she did not want patient to undergo colonoscopy preparation as she feels he is not at his baseline functional status and wants to do as outpatient. 09/08 Patient's hemoglobin has been stable over the past couple of weeks Continue Lovenox 100 mg twice a day-occasionally held during debridement days 2) Fever likely secondary to Sacral Decub Ulcer Infection Blood culture: Negative Repeat urine culture: Negative Pneumonia ruled out Infected hematoma ruled out by CT Remains afebrile without any evidence of increasing white cell count Has been on ceftriaxone intravenously and also doxycycline, day 8 We will complete a 10-day course of antibiotic Has had fever of 38 C last night None since this morning Will get blood cultures and other blood test-blood cultures pending Denies any fever and or chills Sacral decubitus ulcer, stage II; POA Patient had sacral decubital ulcer which developed within 72 hours of hospitalization. s/p 2 bedside debridements by Gen Surg- Tue and Tue Surgical debridement done today Wound is looking much better and no evidence of infection Please see the picture of the sacral wound to have an idea about the status 3 sacral decubiti Further reviewing the chart it was noted that his sacral decubiti was stage II with impending skin breakdown on admission as on 08/13/2022 The sacral wound definitely showed to be stage II on 08/16/2022 Further exposure to underlying tissues noted to be on 08/26/2022 and as of 09/02/2022 the wound is looking to be stage II-III which required couple of times debridement by the surgeon Appreciate care from the surgery and wound care Will have another debridement on Friday 09/08 Patient had low-grade fever this morning Discussed with Dr. Dar Duggan order noted during evaluation of sacral decubitus ulcer Wound cultures obtained today Blood cultures 4/2: Negative Start cefepime plus Flagyl day #1 Left sided pleural effusion on room air likely from multiple blood transfusions, IV abx will give Lasix 20mg IV again today (day 3) Chest x-ray showed persistence of pleural effusion mainly on the left side Has been negative fluid balance of about 1800 mL since admission Will give another dose of Lasix of 40 mg today Repeat chest x-ray showed no pleural effusion-Lasix has been stopped He may need Lasix periodically Chest remains clear / Resolved with Lasix (4) Elevated troponin: (5) CAD (coronary artery disease): Plan: Likely due to demand ischemia in the setting of profound anemia Continue beta-josé and statin. Plavix was also restarted. Troponin flat, 1100, 1300, 1000 EKG: No signs of acute ischemia or infarct Echo 45 to 45%, mild apical wall hypokinesis Cardiology service consulted-no further further interventions at this point Possible UTI Urine culture x 2: Coag Neg Melchorh discussed with Erica GIBBS given Dapto x 2 days and completed oral doxycycline course. Hagan cath in place in setting of sacral decubital ulcer. As above has been on ceftriaxone day 8 today Antibiotic course is done (6) Type 2 diabetes mellitus: Plan: Hgb A1c 5.2 06/2022 Lantus 5 units in AM NovoLog per protocol Monitor BSG's closely (7) History of CVA (cerebrovascular accident): Plan: History of recurrent CVA despite DAPT and anticoagulation therapy Chronic right hemiplegia/left arm paralysis/mostly nonverbal/expressive aphasia management of Lovenox + PLavix per above. - Also on a statin. (8) H/O deep venous thrombosis: Plan: History of breakthrough DVT while on warfarin and Eliquis therapy, now on therapeutic dose Lovenox per above (9) HTN (hypertension): Plan: Currently on Coreg. Lisinopril presently on hold. BP stable overall (10) DVT prophylaxis: Plan: on Lovenox BID per above Disposition lives with at home Acute Rehab/SNF upon discharge plan of care discussed with patient's in detail and at length all questions answered she is understanding, agreeable, comfortable with the plan of care Admission and Anticipated Discharge Date Admission Date: August 09, 2022 Subjective Follow-up for sacral decubitus ulcer with infection, etc. Seen with patient's Nasreen at the bedside Patient sleeping but easily awakened Opens eyes, nods/states yes no to questions Appears tired this morning Appetite is good No other new symptoms noted Discussed with Dr. Dodge also the patient's room Review of Systems Review of Systems: all noted and negative except for above Physical Exam Physical Exam: General- not in distress, speaks in sentences with no effort or accessory muscle use Eyes- anicteric Neck- no JVD Lungs- clear breath sounds bilaterally, no crackles or wheezing Heart- normal rate, regular rhythm; no murmurs Abdomen- normal bowel sounds, nondistended, soft, no tenderness Extremities- no pretibial edema, no calf tenderness Neuro- no new gross focal neurologic deficits Skin- warm & dry Results & Data Results & Data Vital Signs (Past 12 Hours) Vital Signs Temp Pulse Pulse Resp BP Pulse Ox O2 Del Method 09/08/22 16:11 36.8 C 89 16 144/83 H 96 Room Air 09/08/22 15:15 82 09/08/22 11:44 37.0 C 78 16 101/64 97 Room Air 09/08/22 08:40 Room Air 09/08/22 07:43 37.8 C H 92 H 16 114/63 95 Room Air 09/08/22 06:58 83 all noted and reviewed including below
[2022-09-08] MEDS: ENOXAPARIN 100 MG/1ML SYR SQ SCH (22:04)
[2022-09-09] MEDS: metroNIDAZOLE 500 MG/100 ML BAG IV SCH ×3 (03:13→17:48)
[2022-09-09] MEDS: CEFEPIME 2,000 MG in SYRINGE 0 ML IV SCH ×3 (03:13→20:11)
[2022-09-09] MEDS: POLYETHYLENE (MIRALAX) 17 GM PACK PO SCH ×2 (08:54→09:02)
[2022-09-09] MEDS: CLOPIDOGREL BISULFATE 75 MG TAB PO SCH (08:54)
[2022-09-09] MEDS: FOLIC ACID 1 MG TAB PO SCH (08:54)
[2022-09-09] MEDS: COLLAGENASE OINT 30 GM TUBE EXT SCH ×2 (08:54→20:12)
[2022-09-09] MEDS: ACETAMINOPHEN 325 MG TAB PO SCH ×4 (08:54→20:12)
[2022-09-09] MEDS: ADVANCED PROBIOTIC 1250 MG CAPSULE PO SCH (08:54)
[2022-09-09] MEDS: PANTOprazole 40 MG TAB PO SCH ×2 (08:54→20:13)
[2022-09-09] MEDS: INSULIN ASPART PER UNIT CHARGE SC SCH ×4 (09:01→21:49)
[2022-09-09] MEDS: LANTUS PER UNIT CHARGE SQ SCH (09:01)
[2022-09-09] MEDS: carvediloL 12.5 MG TAB PO SCH ×2 (10:13→17:43)
[2022-09-09] MEDS: MAGNESIUM OXIDE 400 MG TAB PO SCH ×2 (10:14→21:52)
[2022-09-09] MEDS: BACLOFEN 10 MG TAB PO SCH (10:14)
[2022-09-09 11:59] LABS: Basophils # (auto) 0.04 K/uL (0-0.2); Basophils % (auto) 0.5 %; Eosinophils # (auto) 0.05 K/uL (0-0.50); Eosinophils % (auto) 0.6 %; Hematocrit (blood only) 37.2 % (42.0-52.0); Hemoglobin 11.7 g/dl (14.0-18.0); Immature Granulocytes # (auto) 0.02 K/uL (0.01-0.20); Immature Granulocytes % (auto) 0.2 %; Lymphocytes # (auto) 1.31 K/uL (1.2-3.4); Lymphocytes % (auto) 16.3 %; Mean Corpuscular Hemoglobin 25.5 pg (25.0-34.0); Mean Corpuscular Hgb Conc 31.5 g/dL (32.0-36.0); Mean Platelet Volume 10.3 fL (9.4-12.4); Monocytes # (auto) 0.46 K/uL (0.11-0.59); Monocytes % (auto) 5.7 %; Neutrophils # (auto) 6.15 K/uL (1.40-6.50); Neutrophils % (auto) 76.7 %; Platelet Count 278 K/uL (130-400); RDW Coefficient of Variation 18.6 % (11.5-14.5); RDW Standard Deviation 54.7 fL (36.4-46.3); Red Blood Count 4.59 M/uL (4.70-6.10); White Blood Count 8.03 K/ul (4.8-10.8)
[2022-09-09 12:14] LABS: BUN Creatinine Ratio 54.2 (10-20); Calcium 8.8 mg/dl (8.6-10.3); Creatinine Clr Calc Pharmacy 122.5 ml/min; Est GFR (Non-African American) 116.5 ml/min; Magnesium 1.6 mg/dl (1.7-2.4); Potassium 4.4 mmol/L (3.5-5.1)
[2022-09-09] MEDS: DAPTOmycin 225 MG in SYRINGE 0 ML IV SCH (12:25)
--- NOTE | 2022-09-09 19:18 | Surgery Progress Note ---
Date of Service September 09, 2022 Assessment & Plan (1) Sacral wound: Plan: Wound care present, wound was debrided at the bedside after obtaining consent from his , Nasreen who was also present. Pictures of the wound obtained. Appears to be still having ischemic/pressure changes. Wound care does not agree with a wound vac out of concern that it might not function properly due to incontinent stooling near the area. A good portion of the necrotic tissue was able to be removed from the outer rim of the central aspect of the wound. Silver Nitrate was used to cauterize bleeding at the right side of the wound. After debridement today, Aquacel Ag was applied to the central aspect of the wound that appears to be the infected portion and with evolving necrosis. Gauze was used over the other aspects of the wound which was then covered with an Optifoam. The wound will be assessed again tomorrow to see the results of the Aquadcel. Admission and Anticipated Discharge Date Admission Date: August 09, 2022 Subjective Patient seen, unchanged. Physical Exam Skin: Sacral wound with increased darkened necrotic tissue around the elevated edge of the deeper, central aspect of the wound. Results & Data Vital Signs (Past 12 Hours) Vital Signs Temp Pulse Pulse Resp BP Pulse Ox O2 Del Method 09/09/22 15:00 77 09/09/22 16:57 37.9 C H 96 H 16 136/85 98 Room Air 09/09/22 09:00 Room Air 09/09/22 11:05 37.0 C 84 16 138/76 95 Room Air 09/09/22 10:35 85 09/09/22 09:11 37.6 C H 09/09/22 08:07 38.1 C H 86 16 112/47 L 95 Room Air PG Care Time/CCT Total # of Minutes Spent Total Time Spent with Patient: Total time spent is greater than 50% in coordination of care (as documented) at patient's floor/unit and/or counseling patient: Coding Level of Care Code 17108 SUB INP/OBS CARE 3/50MIN Diagnoses Sacral wound S31.000A
--- NOTE | 2022-09-09 19:23 | Hospitalist Progress Note ---
Date of Service September 09, 2022 Assessment & Plan (1) Hematoma of right thigh: Plan: per previous hospitalist notes with addendum: (1)Acute blood loss anemia, likely secondary to right thigh hematoma and left arm hematoma spontaneous, in the setting of Lovenox and Plavix use History of Recurrent DVT, and CVA Plan: Patient presenting from home with reported increased lethargy, taking Lovenox 120mg BID and Plavix As an outpatient, patient has been noted to have a downtrending hemoglobin (11.5 --> 8.0 --> 9.1 --> 8.9 on 07/27). Patient was started on iron replacement. 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 Colonoscopy was considered however patient was felt to not likely be able to tolerate the prep. In the ED, Hgb 5.9. Patient hemodynamically stable. CT abdomen/pelvis/angio: There is a large hematoma involving the medial aspect of the upper thigh measuring approximately 5.5 x 6.5 cm in axial dimension. Questionable heterogeneous density surrounding the right femur are concerning for second hematoma and measuring 5.7 x 5.5 cm in axial dimension. There is no evidence of active bleed. Decrease in left latissimus dorsi hematoma compared with 08/22/2022-resolving hematomas Significant soft tissue swelling throughout the left upper extremity Large foci of heterotopic ossification are again seen around the distal humerus and proximal forearm Remains stable with current comorbid conditions Hemoglobin remains stable at more than 11 as of 09/03/2022-we will continue current dose of Lovenox [facility] consulted: no surgery recommended. He was transfused 4 unit of packed RBC; hemoglobin improved to [address] scan of the thigh was done on 08/13; stable size of hematoma. Venous duplex of left arm done on 08/18 shows large complex left axillary fluid collection typical for hematoma. [employer] Front Desk Clerk consulted: Dr. Richey- recommend to gradually start Lovenox- 40mg daily, then BID, then 80mg BID. Patient tolerated 2 days of Lovenox 80 mg twice daily; anti-Xa level was obtained on August 16; level was found to be 0.45. Discussion with hematology done again. Recommended to increase Lovenox to 100 mg twice daily and repeat anti-Xa level again. Repeat anti-Xa level was 0.6 which is within therapeutic range. Discussed with hematology again. Recommended to continue same doses. Lovenox is on hold for surgical debridement today and will be restarted in the evening Lovenox has been restarted following surgical debridement Has had debridement yesterday on 09/03/2022-discussed with the surgeon who will do another debridement on Tuesday with instructions for dressing thereafter if the patient goes to rehab on Tuesday or Tuesday Discussed with the in detail The surgeon has to do another I&D today for 323- On the request of patient's regarding work-up for anemia; GI was informed and patient was planned for colonoscopy as inpatient on 08/19. However, further discussion with the ; she did not want patient to undergo colonoscopy preparation as she feels he is not at his baseline functional status and wants to do as outpatient. 09/08 Patient's hemoglobin has been stable over the past couple of weeks Continue Lovenox 100 mg twice a day-occasionally held during debridement days 4/6 Hg stable Continue Lovenox 100 mg twice a day-occasionally held during debridement days 2) Fever likely secondary to Sacral Decub Ulcer Infection Blood culture: Negative Repeat urine culture: Negative Pneumonia ruled out Infected hematoma ruled out by CT Remains afebrile without any evidence of increasing white cell count Has been on ceftriaxone intravenously and also doxycycline, day 8 We will complete a 10-day course of antibiotic Has had fever of 38 C last night None since this morning Will get blood cultures and other blood test-blood cultures pending Denies any fever and or chills Sacral decubitus ulcer, stage II; POA Patient had sacral decubital ulcer which developed within 72 hours of hospitalization. s/p 2 bedside debridements by Gen Surg- Tue and Mon Surgical debridement done today Wound is looking much better and no evidence of infection Please see the picture of the sacral wound to have an idea about the status 3 sacral decubiti Further reviewing the chart it was noted that his sacral decubiti was stage II with impending skin breakdown on admission as on 08/13/2022 The sacral wound definitely showed to be stage II on 08/16/2022 Further exposure to underlying tissues noted to be on 08/26/2022 and as of 09/02/2022 the wound is looking to be stage II-III which required couple of times debridement by the surgeon Appreciate care from the surgery and wound care Will have another debridement on Friday 09/08 Patient had low-grade fever this morning Discussed with Dr. Dodge Foul order noted during evaluation of sacral decubitus ulcer Wound cultures obtained today Blood cultures 09/05: Negative Start cefepime plus Flagyl day #1 09/09 wound culture: gram neg bacilli blood culture: pending (+) fever in AM added Dapto to Cefepime + Flagyl s/p debridement today discussed at length with patient's and Dr. Dodge she is upset, very concerned plan of care explained Ms Downey is agreeable with plan including application of silver, IV abx and re- evaluate tomorrow Left sided pleural effusion on room air likely from multiple blood transfusions, IV abx will give Lasix 20mg IV again today (day 3) Chest x-ray showed persistence of pleural effusion mainly on the left side Has been negative fluid balance of about 1800 mL since admission Will give another dose of Lasix of 40 mg today Repeat chest x-ray showed no pleural effusion-Lasix has been stopped He may need Lasix periodically Chest remains clear 09/09 Resolved with Lasix (4) Elevated troponin: (5) CAD (coronary artery disease): Plan: Likely due to demand ischemia in the setting of profound anemia Continue beta-josé and statin. Plavix was also restarted. Troponin flat, 1100, 1300, 1000 EKG: No signs of acute ischemia or infarct Echo 45 to 45%, mild apical wall hypokinesis Cardiology service consulted-no further further interventions at this point Possible UTI Urine culture x 2: Coag Neg Staph discussed with Erica GIBBS given Dapto x 2 days and completed oral doxycycline course. Hagan cath in place in setting of sacral decubital ulcer. As above has been on ceftriaxone day 8 today Antibiotic course is done (6) Type 2 diabetes mellitus: Plan: Hgb A1c 5.2 06/2022 Lantus 5 units in AM NovoLog per protocol Monitor BSG's closely (7) History of CVA (cerebrovascular accident): Plan: History of recurrent CVA despite DAPT and anticoagulation therapy Chronic right hemiplegia/left arm paralysis/mostly nonverbal/expressive aphasia management of Lovenox + PLavix per above. - Also on a statin. (8) H/O deep venous thrombosis: Plan: History of breakthrough DVT while on warfarin and Eliquis therapy, now on therapeutic dose Lovenox per above (9) HTN (hypertension): Plan: Currently on Coreg. Lisinopril presently on hold. BP stable overall (10) DVT prophylaxis: Plan: on Lovenox BID per above Disposition lives with at home Acute Rehab/SNF upon discharge plan of care discussed with patient's in detail and at length all questions answered she is understanding, agreeable, comfortable with the plan of care Admission and Anticipated Discharge Date Admission Date: August 09, 2022 Subjective ff up for infected sacral decub wounds, etc seen resting in bed, not in distress patient somewhat more subdued today Nasreen at bedside no signs of pain, shortness of breath did not eat breakfast ate whole lunch tray no other symptoms Review of Systems Review of Systems: all noted and negative except for above Physical Exam Physical Exam: General- alert, not in distress, breathing with no effort or accessory muscle use Eyes- anicteric Neck- no JVD Lungs- clear breath sounds bilaterally, no rales/wheezes Heart- normal rate, regular rhythm; no murmurs Abdomen- normal bowel sounds, nondistended, soft, nontender Back- sacral decubitus wound- necrotic areas noted no active discharge Extremities- no pretibial edema, no calf tenderness Neuro- alert; no new gross focal neurologic deficits Skin- warm & dry Results & Data Results & Data Vital Signs (Past 12 Hours) Vital Signs Temp Pulse Pulse Resp BP Pulse Ox O2 Del Method 09/09/22 15:00 77 09/09/22 16:57 37.9 C H 96 H 16 136/85 98 Room Air 09/09/22 09:00 Room Air 09/09/22 11:05 37.0 C 84 16 138/76 95 Room Air 09/09/22 10:35 85 09/09/22 09:11 37.6 C H 09/09/22 08:07 38.1 C H 86 16 112/47 L 95 Room Air all noted and reviewed including below
[2022-09-09] MEDS: ENOXAPARIN 100 MG/1ML SYR SQ SCH (21:52)
[2022-09-10] MEDS: CEFEPIME 2,000 MG in SYRINGE 0 ML IV SCH ×3 (03:11→21:18)
[2022-09-10] MEDS: metroNIDAZOLE 500 MG/100 ML BAG IV SCH ×3 (03:11→21:40)
[2022-09-10 07:07] LABS: Basophils # (auto) 0.04 K/uL (0-0.2); Basophils % (auto) 0.5 %; Eosinophils # (auto) 0.07 K/uL (0-0.50); Eosinophils % (auto) 0.9 %; Hematocrit (blood only) 35.1 % (42.0-52.0); Hemoglobin 11.2 g/dl (14.0-18.0); Immature Granulocytes # (auto) 0.03 K/uL (0.01-0.20); Immature Granulocytes % (auto) 0.4 %; Lymphocytes # (auto) 1.62 K/uL (1.2-3.4); Mean Corpuscular Hemoglobin 25.5 pg (25.0-34.0); Mean Corpuscular Hgb Conc 31.9 g/dL (32.0-36.0); Mean Platelet Volume 10.4 fL (9.4-12.4); Monocytes # (auto) 0.55 K/uL (0.11-0.59); Monocytes % (auto) 7.1 %; Neutrophils # (auto) 5.39 K/uL (1.40-6.50); Neutrophils % (auto) 70.1 %; Platelet Count 271 K/uL (130-400); RDW Coefficient of Variation 18.5 % (11.5-14.5); RDW Standard Deviation 53.6 fL (36.4-46.3); Red Blood Count 4.39 M/uL (4.70-6.10)
[2022-09-10 07:29] LABS: BUN Creatinine Ratio 82.1 (10-20); Calcium 8.6 mg/dl (8.6-10.3); Creatinine Clr Calc Pharmacy 183.2 ml/min; Est GFR (Non-African American) 126.8 ml/min; Magnesium 1.5 mg/dl (1.7-2.4); Potassium 3.9 mmol/L (3.5-5.1)
[2022-09-10] MEDS: INSULIN ASPART PER UNIT CHARGE SC SCH ×4 (08:37→21:17)
[2022-09-10] MEDS: LANTUS PER UNIT CHARGE SQ SCH ×2 (08:38→21:16)
[2022-09-10] MEDS: MAGNESIUM SULFATE / D5W 1 GM/100 ML BAG IV SCH ×2 (08:49→10:31)
[2022-09-10] MEDS: ADVANCED PROBIOTIC 1250 MG CAPSULE PO SCH (08:57)
[2022-09-10] MEDS: FOLIC ACID 1 MG TAB PO SCH (08:57)
[2022-09-10] MEDS: BACLOFEN 10 MG TAB PO SCH (08:57)
[2022-09-10] MEDS: CLOPIDOGREL BISULFATE 75 MG TAB PO SCH (08:57)
[2022-09-10] MEDS: ACETAMINOPHEN 325 MG TAB PO SCH ×4 (08:58→21:42)
[2022-09-10] MEDS: carvediloL 12.5 MG TAB PO SCH ×2 (08:58→16:53)
[2022-09-10] MEDS: POLYETHYLENE (MIRALAX) 17 GM PACK PO SCH (09:04)
[2022-09-10] MEDS: PANTOprazole 40 MG TAB PO SCH ×2 (09:06→21:18)
[2022-09-10] MEDS: COLLAGENASE OINT 30 GM TUBE EXT SCH ×2 (10:01→21:18)
[2022-09-10] MEDS: DAPTOmycin 225 MG in SYRINGE 0 ML IV SCH (10:37)
[2022-09-10] MEDS: ENOXAPARIN 100 MG/1ML SYR SQ SCH (10:45)
[2022-09-10] MEDS: MAGNESIUM OXIDE 400 MG TAB PO SCH ×2 (10:47→21:42)
--- NOTE | 2022-09-10 10:53 | Surgery Progress Note ---
Date of Service September 10, 2022 Assessment & Plan (1) Sacral wound: Plan I think this wound have benefitted from a wound vac after the debridement of necrotic tissue prior to the formation of new necrotic tissue. Unfortunately in discussion with the wound care team, they are not hopeful that a wound vac will take due to the proximity to the anus. The wound is currently progressing with every debridement. For now, along with the help of the wound care team, we have tried a different approach in using Aquacel Ag in attempt to help re-stabalize this wound and have some activity against bacteria while we await antibiotic full effects. The patient was last febrile yesterday at 7pm as documented in his chart. Fevers are less frequent and the wound did not have a foul smell this am. We will see if he remains afebrile for 24 hours and consider changing back to Santyl. As of today, at least the infection seems to be better controlled. Admission and Anticipated Discharge Date Admission Date: August 09, 2022 Subjective Patient seen, unchanged Physical Exam Skin: Wound no longer has a foul smell as of this am. There is extension of dessicated/necrotic tissue now completely circumferential around the deeper, central part of the wound. Results & Data Vital Signs (Past 12 Hours) Vital Signs Temp Pulse Pulse Resp BP BP Pulse Ox 09/10/22 07:47 37.0 C 90 20 135/78 96 09/10/22 04:00 37.3 C 98 H 20 138/81 95 09/09/22 23:30 82 09/09/22 23:00 37.4 C 85 19 123/70 97 O2 Del Method 09/10/22 07:47 Room Air 09/10/22 04:00 Room Air 09/09/22 23:30 09/09/22 23:00 Room Air PG Care Time/CCT Total # of Minutes Spent Total Time Spent with Patient: Total time spent is greater than 50% in coordination of care (as documented) at patient's floor/unit and/or counseling patient: Coding Level of Care Code 82256 SUB INP/OBS CARE 3/50MIN Diagnoses Sacral wound S31.000A
--- NOTE | 2022-09-10 17:04 | Hospitalist Progress Note ---
Date of Service September 10, 2022 Assessment & Plan (1) Hematoma of right thigh: Plan: per previous hospitalist notes with addendum: (1)Acute blood loss anemia, likely secondary to right thigh hematoma and left arm hematoma spontaneous, in the setting of Lovenox and Plavix use History of Recurrent DVT, and CVA Plan: Patient presenting from home with reported increased lethargy, taking Lovenox 120mg BID and Plavix As an outpatient, patient has been noted to have a downtrending hemoglobin (11.5 --> 8.0 --> 9.1 --> 8.9 on 07/27). Patient was started on iron replacement. 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 Colonoscopy was considered however patient was felt to not likely be able to tolerate the prep. In the ED, Hgb 5.9. Patient hemodynamically stable. CT abdomen/pelvis/angio: There is a large hematoma involving the medial aspect of the upper thigh measuring approximately 5.5 x 6.5 cm in axial dimension. Questionable heterogeneous density surrounding the right femur are concerning for second hematoma and measuring 5.7 x 5.5 cm in axial dimension. There is no evidence of active bleed. Decrease in left latissimus dorsi hematoma compared with 08/22/2022-resolving hematomas Significant soft tissue swelling throughout the left upper extremity Large foci of heterotopic ossification are again seen around the distal humerus and proximal forearm Remains stable with current comorbid conditions Hemoglobin remains stable at more than 11 as of 09/03/2022-we will continue current dose of Lovenox [facility] consulted: no surgery recommended. He was transfused 4 unit of packed RBC; hemoglobin improved to [address] scan of the thigh was done on 08/13; stable size of hematoma. Venous duplex of left arm done on 08/18 shows large complex left axillary fluid collection typical for hematoma. [employer] consulted: Dr. Richey- recommend to gradually start Lovenox- 40mg daily, then BID, then 80mg BID. Patient tolerated 2 days of Lovenox 80 mg twice daily; anti-Xa level was obtained on August 16; level was found to be 0.45. Discussion with hematology done again. Recommended to increase Lovenox to 100 mg twice daily and repeat anti-Xa level again. Repeat anti-Xa level was 0.6 which is within therapeutic range. Discussed with hematology again. Recommended to continue same doses. Lovenox is on hold for surgical debridement today and will be restarted in the evening Lovenox has been restarted following surgical debridement Has had debridement yesterday on 09/03/2022-discussed with the surgeon who will do another debridement on Tuesday with instructions for dressing thereafter if the patient goes to rehab on Tuesday or Tuesday Discussed with the in detail The surgeon has to do another I&D today for 323- On the request of patient's regarding work-up for anemia; GI was informed and patient was planned for colonoscopy as inpatient on 08/19. However, further discussion with the ; she did not want patient to undergo colonoscopy preparation as she feels he is not at his baseline functional status and wants to do as outpatient. 09/08 Patient's hemoglobin has been stable over the past couple of weeks Continue Lovenox 100 mg twice a day-occasionally held during debridement days 09/09 Hg stable Continue Lovenox 100 mg twice a day-occasionally held during debridement days 09/10 Hemoglobin stable Continue Lovenox twice a day 2) Fever likely secondary to Sacral Decub Ulcer Infection Blood culture: Negative Repeat urine culture: Negative Pneumonia ruled out Infected hematoma ruled out by CT Remains afebrile without any evidence of increasing white cell count Has been on ceftriaxone intravenously and also doxycycline, day 8 We will complete a 10-day course of antibiotic Has had fever of 38 C last night None since this morning Will get blood cultures and other blood test-blood cultures pending Denies any fever and or chills Sacral decubitus ulcer, stage II; POA Patient had sacral decubital ulcer which developed within 72 hours of hospitalization. s/p 2 bedside debridements by Gen Surg- Tue and Mon Surgical debridement done today Wound is looking much better and no evidence of infection Please see the picture of the sacral wound to have an idea about the status 3 sacral decubiti Further reviewing the chart it was noted that his sacral decubiti was stage II with impending skin breakdown on admission as on 08/13/2022 The sacral wound definitely showed to be stage II on 08/16/2022 Further exposure to underlying tissues noted to be on 08/26/2022 and as of 09/02/2022 the wound is looking to be stage II-III which required couple of times debridement by the surgeon Appreciate care from the surgery and wound care Will have another debridement on Friday 09/08 Patient had low-grade fever this morning Discussed with Dr. Dodge Foul order noted during evaluation of sacral decubitus ulcer Wound cultures obtained today Blood cultures 09/05: Negative Start cefepime plus Flagyl day #1 09/09 wound culture: gram neg bacilli blood culture: pending (+) fever in AM added Dapto to Cefepime + Flagyl s/p debridement today discussed at length with patient's and Dr. Dodge she is upset, very concerned plan of care explained Ms Downey is agreeable with plan including application of silver, IV abx and re- evaluate tomorrow 09/10 Afebrile since last night Wound culture: Gram-negative bacilli Blood cultures: Pending Continue Dapto, cefepime plus Flagyl Discussed with Dr. Dodge, continue with Aquacel with silver Wound VAC not recommended at this point per Dr. Dodge Left sided pleural effusion on room air likely from multiple blood transfusions, IV abx will give Lasix 20mg IV again today (day 3) Chest x-ray showed persistence of pleural effusion mainly on the left side Has been negative fluid balance of about 1800 mL since admission Will give another dose of Lasix of 40 mg today Repeat chest x-ray showed no pleural effusion-Lasix has been stopped He may need Lasix periodically Chest remains clear 09/10 Resolved with Lasix (4) Elevated troponin: (5) CAD (coronary artery disease): Plan: Likely due to demand ischemia in the setting of profound anemia Continue beta-josé and statin. Plavix was also restarted. Troponin flat, 1100, 1300, 1000 EKG: No signs of acute ischemia or infarct Echo 45 to 45%, mild apical wall hypokinesis Cardiology service consulted-no further further interventions at this point Possible UTI Urine culture x 2: Coag Neg Staph discussed with Erica GIBSB given Dapto x 2 days and completed oral doxycycline course. Hagan cath in place in setting of sacral decubital ulcer. As above has been on ceftriaxone day 8 today Antibiotic course is done (6) Type 2 diabetes mellitus: Plan: Hgb A1c 5.2 06/2022 Lantus 5 units in AM NovoLog per protocol Monitor BSG's closely (7) History of CVA (cerebrovascular accident): Plan: History of recurrent CVA despite DAPT and anticoagulation therapy Chronic right hemiplegia/left arm paralysis/mostly nonverbal/expressive aphasia management of Lovenox + PLavix per above. - Also on a statin. (8) H/O deep venous thrombosis: Plan: History of breakthrough DVT while on warfarin and Eliquis therapy, now on therapeutic dose Lovenox per above (9) HTN (hypertension): Plan: Currently on Coreg. Lisinopril presently on hold. BP stable overall (10) DVT prophylaxis: Plan: on Lovenox BID per above Disposition lives with at home Acute Rehab/SNF upon discharge plan of care discussed with patient's in detail and at length all questions answered she is understanding, agreeable, comfortable with the plan of care Total of 45 minutes spent with patient care including patient interview and examination, laboratory studies review, medication review and adjustments, discussion with family Admission and Anticipated Discharge Date Admission Date: August 09, 2022 Subjective Follow-up for infected sacral decubitus ulcer, etc. Seen resting in bed, comfortable, alert and awake Denies pain, shortness of breath Afebrile overnight No new issues Patient's at the bedside visiting Review of Systems Review of Systems: all noted and negative except for above Physical Exam Physical Exam: General- not in distress, breathing with no effort or accessory muscle use Eyes- anicteric Neck- no JVD Lungs- clear breath sounds bilaterally, no crackles or wheezing bilaterally Heart- normal rate, regular rhythm; no murmurs Abdomen- normal bowel sounds, nondistended, soft, no tenderness Extremities- no pretibial edema, no calf tenderness Neuro- alert, oriented x 3; no gross focal neurologic deficits Skin- warm & dry Results & Data Results & Data Vital Signs (Past 12 Hours) Vital Signs Temp Pulse Pulse Resp BP Pulse Ox O2 Del Method 09/10/22 15:13 36.6 C 83 20 143/76 H 98 Room Air 09/10/22 14:15 72 09/10/22 06:00 90 09/10/22 08:00 Room Air 09/10/22 11:09 37.2 C 81 20 110/71 95 Room Air 09/10/22 07:47 37.0 C 90 20 135/78 96 Room Air all noted and reviewed including below
[2022-09-10] MEDS ORDERED: PHARMACY GLYCEMIC MGMT CONSULT PRN (18:09)
[2022-09-11] MEDS: INSULIN ASPART PER UNIT CHARGE SC SCH ×6 (00:46→22:00)
[2022-09-11] MEDS: ENOXAPARIN 100 MG/1ML SYR SQ SCH ×2 (00:46→12:42)
[2022-09-11] MEDS: CEFEPIME 2,000 MG in SYRINGE 0 ML IV SCH ×3 (02:43→18:00)
[2022-09-11] MEDS: metroNIDAZOLE 500 MG/100 ML BAG IV SCH ×2 (02:51→11:47)
[2022-09-11] MEDS ORDERED: GLUCOSE 40% GEL 15 GM TUBE PO PRN (05:30)
[2022-09-11] MEDS ORDERED: DEXTROSE 50% 50 ML SYRINGE IV PRN (05:30)
[2022-09-11] MEDS ORDERED: CARBOHYDRATES FOR HYPOGLYCEMIA PO PRN (05:30)
[2022-09-11] MEDS ORDERED: GLUCAGON FOR INJ 1 MG VIAL IM PRN (05:30)
[2022-09-11] MEDS ORDERED: GLUCOSE 10 TAB/TUBE PO PRN (05:30)
[2022-09-11 07:37] LABS: Basophils # (auto) 0.03 K/uL (0-0.2); Basophils % (auto) 0.4 %; Eosinophils # (auto) 0.16 K/uL (0-0.50); Hematocrit (blood only) 35.3 % (42.0-52.0); Hemoglobin 11.2 g/dl (14.0-18.0); Immature Granulocytes # (auto) 0.03 K/uL (0.01-0.20); Immature Granulocytes % (auto) 0.4 %; Lymphocytes # (auto) 1.76 K/uL (1.2-3.4); Lymphocytes % (auto) 22.5 %; Mean Corpuscular Hemoglobin 25.4 pg (25.0-34.0); Mean Corpuscular Hgb Conc 31.7 g/dL (32.0-36.0); Mean Platelet Volume 10.6 fL (9.4-12.4); Monocytes % (auto) 6.4 %; Neutrophils # (auto) 5.34 K/uL (1.40-6.50); Neutrophils % (auto) 68.3 %; Platelet Count 283 K/uL (130-400); RDW Coefficient of Variation 18.2 % (11.5-14.5); RDW Standard Deviation 53.5 fL (36.4-46.3); Red Blood Count 4.41 M/uL (4.70-6.10); White Blood Count 7.82 K/ul (4.8-10.8)
[2022-09-11 07:53] LABS: Anion Gap 6 (3-11); BUN Creatinine Ratio 86.5 (10-20); Blood Urea Nitrogen 32 mg/dl (6-23); Calcium 8.5 mg/dl (8.6-10.3); Carbon Dioxide 25 mmol/L (21-32); Chloride 108 mmol/L (98-107); Creatinine Clr Calc Pharmacy 193.1 ml/min; Est GFR (African American) > 150.0 ml/min; Est GFR (Non-African American) 129.6 ml/min; Glucose 165 mg/dl (70-99(Fasting)); Magnesium 1.7 mg/dl (1.7-2.4); Sodium 139 mmol/L (136-145)
[2022-09-11] MEDS: ACETAMINOPHEN 325 MG TAB PO SCH ×4 (08:50→21:58)
[2022-09-11] MEDS: LANTUS PER UNIT CHARGE SQ SCH (08:51)
[2022-09-11] MEDS: COLLAGENASE OINT 30 GM TUBE EXT SCH ×2 (08:52→23:33)
[2022-09-11] MEDS: BACLOFEN 10 MG TAB PO SCH (09:09)
[2022-09-11] MEDS: ADVANCED PROBIOTIC 1250 MG CAPSULE PO SCH (09:09)
[2022-09-11] MEDS: CLOPIDOGREL BISULFATE 75 MG TAB PO SCH (09:09)
[2022-09-11] MEDS: carvediloL 12.5 MG TAB PO SCH ×2 (09:09→18:02)
[2022-09-11] MEDS: PANTOprazole 40 MG TAB PO SCH ×2 (09:10→22:00)
[2022-09-11] MEDS: DAPTOmycin 225 MG in SYRINGE 0 ML IV SCH (12:41)
[2022-09-11] MEDS: MAGNESIUM OXIDE 400 MG TAB PO SCH ×2 (12:42→22:02)
--- NOTE | 2022-09-11 13:46 | Pharmacy Report ---
Pharmacy Glycemic Short Note 2 - Date of Service September 11, 2022 - Glycemic Short BSG Results (Last 24 hours): 09/10/22 09/10/22 09/11/22 16:31 20:28 00:39 Glucose POC Glucose 195 H 192 H 183 H 09/11/22 09/11/22 09/11/22 03:50 06:53 07:41 Glucose 165 H POC Glucose 146 H 161 H 09/11/22 11:56 Glucose POC Glucose 188 H OUTPATIENT ANTIDIABETIC REGIMEN: * Lantus 14 units qAM + 10 units qPM * Novolog 10 units AC * HbA1C = 6.7% (08/21/21) ASSESSMENT: * Mr Turner is a 62 y/o M with a PMH of IDDM who has been hospitalized for about 1 month. * Most recently, the patient's blood sugars are trending upwards. He had been maintained on Lantus 5 units daily + Novolog ~30 units per day. * Yesterday BSGs were [phone] mg/dL. He received 51 units of insulin (19 units of basal and 32 units of bolus). Will resume patient's home Lantus dosing for now and titrate as appropriate. * Novolog weight-based stress of 3 for now due to basal deficiency. Loosen as BSGs trend downwards. PLAN FOR INPATIENT GLYCEMIC CONTROL: * Basal insulin * Lantus 14 units SQ qAM + 10 units SQ qPM * Bolus insulin * NovoLog per scale ACHS or Q6hrs while NPO * Goal Range: Low 110 mg/dL - High 140 mg/dL * Correction Factor: 25 mg/dL/unit * Nutritional / Prandial insulin per carb ratio of 1 unit per 8 grams CHO consumed
--- NOTE | 2022-09-11 15:31 | Magnetic Resonance Report ---
MRI OF THE LUMBAR SPINE WITHOUT CONTRAST CLINICAL HISTORY: infected sacral decub ulcer, r/o osteomyelitis COMPARISON STUDY: CT of the abdomen and pelvis August 10, 2022. TECHNIQUE: Utilizing a 1.5 Liliana magnet and dedicated coil, multiplanar, multiecho imaging of [facility] was performed without IV contrast. FINDINGS: For purposes of numbering on this exam, the L5-S1 disc space is assigned to axial image 27 of 28. Ali gnment of the lumbar spine is anatomic. Mild loss of height of the superior endplate of L4 is unchang ed since CT of August 10, 2022. This is chronic. There is no marrow edema or marrow replacement. There is no intracanalicular mass or fluid collection. The conus terminates at the mid L1 level. This exam is mildly compromised by motion artifact. The spine is imaged to the level of the sacrococcygeal junc tion on sagittal sequences. Evaluation is suboptimal given the lack of axial images through the sacru m however there is no MR evidence for acute osteomyelitis within the sacrum. The coccyx is not visual ized on this examination. Subcutaneous edema of the lower back is incidentally noted. The sacral decu bitus ulcer is not well visualized on this exam. L1-2: The central canal and neural foramen are patent. L2-3: The central canal and neural foramen are patent. L3-4: There is mild facet arthrosis. There is minimal disc bulge. The central canal and neural forame n are patent. L4-5: There is disc bulge with superimposed left paracentral/left foraminal disc protrusion with liborio lar tear. The central canal is patent. There is moderate narrowing of the left lateral recess and lef t neural foramen. There is mild narrowing of the right neural foramen. L5-S1: Central canal and neural foramen are patent. There is facet arthrosis. IMPRESSION: 1. Suboptimal evaluation of the sacrum, as described above. However, no MR evidence for acute osteomy elitis on this exam. Coccyx not visualized on this exam. If suspicion for coccygeal osteomyelitis, an MRI of the sacrum and coccyx could be obtained. 2. Mild multilevel degenerative changes within the lumbar spine. Paracentral/left foraminal disc prot rusion at L4-L5 which results in moderate left lateral recess and left neural foramen. 3. No significant central canal stenosis. ACT 112: Negative or not required by law. Electronically signed by: Pal Blunt M.D. 09/11/2022 3:29 PM
--- NOTE | 2022-09-11 15:50 | Hospitalist Progress Note ---
Date of Service September 11, 2022 Assessment & Plan (1) Hematoma of right thigh: Plan: per previous hospitalist notes with addendum: (1)Acute blood loss anemia, likely secondary to right thigh hematoma and left arm hematoma spontaneous, in the setting of Lovenox and Plavix use History of Recurrent DVT, and CVA Plan: Patient presenting from home with reported increased lethargy, taking Lovenox 120mg BID and Plavix As an outpatient, patient has been noted to have a downtrending hemoglobin (11.5 --> 8.0 --> 9.1 --> 8.9 on 07/27). Patient was started on iron replacement. 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 Colonoscopy was considered however patient was felt to not likely be able to tolerate the prep. In the ED, Hgb 5.9. Patient hemodynamically stable. CT abdomen/pelvis/angio: There is a large hematoma involving the medial aspect of the upper thigh measuring approximately 5.5 x 6.5 cm in axial dimension. Questionable heterogeneous density surrounding the right femur are concerning for second hematoma and measuring 5.7 x 5.5 cm in axial dimension. There is no evidence of active bleed. Decrease in left latissimus dorsi hematoma compared with 08/22/2022-resolving hematomas Significant soft tissue swelling throughout the left upper extremity Large foci of heterotopic ossification are again seen around the distal humerus and proximal forearm Remains stable with current comorbid conditions Hemoglobin remains stable at more than 11 as of 09/03/2022-we will continue current dose of Lovenox [facility] consulted: no surgery recommended. He was transfused 4 unit of packed RBC; hemoglobin improved to [address] scan of the thigh was done on 08/13; stable size of hematoma. Venous duplex of left arm done on 08/18 shows large complex left axillary fluid collection typical for hematoma. [employer] consulted: Dr. Richey- recommend to gradually start Lovenox- 40mg daily, then BID, then 80mg BID. Patient tolerated 2 days of Lovenox 80 mg twice daily; anti-Xa level was obtained on August 16; level was found to be 0.45. Discussion with hematology done again. Recommended to increase Lovenox to 100 mg twice daily and repeat anti-Xa level again. Repeat anti-Xa level was 0.6 which is within therapeutic range. Discussed with hematology again. Recommended to continue same doses. Lovenox is on hold for surgical debridement today and will be restarted in the evening Lovenox has been restarted following surgical debridement Has had debridement yesterday on 09/03/2022-discussed with the surgeon who will do another debridement on Tuesday with instructions for dressing thereafter if the patient goes to rehab on Tuesday or Tuesday Discussed with the in detail The surgeon has to do another I&D today for 323- On the request of patient's regarding work-up for anemia; GI was informed and patient was planned for colonoscopy as inpatient on 08/19. However, further discussion with the ; she did not want patient to undergo colonoscopy preparation as she feels he is not at his baseline functional status and wants to do as outpatient. 09/08 Patient's hemoglobin has been stable over the past couple of weeks Continue Lovenox 100 mg twice a day-occasionally held during debridement days 09/09 Hg stable Continue Lovenox 100 mg twice a day-occasionally held during debridement days 09/10 Hemoglobin stable Continue Lovenox twice a day 09/11 Hemoglobin stable Factor Xa 0.40 2 in the morning We will repeat this afternoon 4 hours after administration of Lovenox 2) Fever likely secondary to Sacral Decub Ulcer Infection Blood culture: Negative Repeat urine culture: Negative Pneumonia ruled out Infected hematoma ruled out by CT Remains afebrile without any evidence of increasing white cell count Has been on ceftriaxone intravenously and also doxycycline, day 8 We will complete a 10-day course of antibiotic Has had fever of 38 C last night None since this morning Will get blood cultures and other blood test-blood cultures pending Denies any fever and or chills Sacral decubitus ulcer, stage II; POA Patient had sacral decubital ulcer which developed within 72 hours of hospitalization. s/p 2 bedside debridements by Gen Surg- Tue and Tue Surgical debridement done today Wound is looking much better and no evidence of infection Please see the picture of the sacral wound to have an idea about the status 3 sacral decubiti Further reviewing the chart it was noted that his sacral decubiti was stage II with impending skin breakdown on admission as on 08/13/2022 The sacral wound definitely showed to be stage II on 08/16/2022 Further exposure to underlying tissues noted to be on 08/26/2022 and as of 09/02/2022 the wound is looking to be stage II-III which required couple of times debridement by the surgeon Appreciate care from the surgery and wound care Will have another debridement on Friday 09/08 Patient had low-grade fever this morning Discussed with Dr. Dodge Foul order noted during evaluation of sacral decubitus ulcer Wound cultures obtained today Blood cultures 09/05: Negative Start cefepime plus Flagyl day #1 09/09 wound culture: gram neg bacilli blood culture: pending (+) fever in AM added Dapto to Cefepime + Flagyl s/p debridement today discussed at length with patient's and Dr. Dodge she is upset, very concerned plan of care explained Ms Downey is agreeable with plan including application of silver, IV abx and re- evaluate tomorrow 09/10 Afebrile since last night Wound culture: Gram-negative bacilli Blood cultures: Pending Continue Dapto, cefepime plus Flagyl Discussed with Dr. Dodge, continue with Aquacel with silver Wound VAC not recommended at this point per Dr. Dodge 09/11 Wound culture: Pseudomonas, sensitive to cefepime Blood cultures: Pending Continue IV cefepime Discontinue Flagyl Continue daptomycin until nasal MRSA screen result is negative MRI ordered to rule out osteomyelitis Left sided pleural effusion on room air likely from multiple blood transfusions, IV abx will give Lasix 20mg IV again today (day 3) Chest x-ray showed persistence of pleural effusion mainly on the left side Has been negative fluid balance of about 1800 mL since admission Will give another dose of Lasix of 40 mg today Repeat chest x-ray showed no pleural effusion-Lasix has been stopped He may need Lasix periodically Chest remains clear 8 09/10 Resolved with Lasix (4) Elevated troponin: (5) CAD (coronary artery disease): Plan: Likely due to demand ischemia in the setting of profound anemia Continue beta-josé and statin. Plavix was also restarted. Troponin flat, 1100, 1300, 1000 EKG: No signs of acute ischemia or infarct Echo 45 to 45%, mild apical wall hypokinesis Cardiology service consulted-no further further interventions at this point Possible UTI Urine culture x 2: Coag Neg Staph discussed with Erica GIBBS given Dapto x 2 days and completed oral doxycycline course. Hagan cath in place in setting of sacral decubital ulcer. As above has been on ceftriaxone day 8 today Antibiotic course is done (6) Type 2 diabetes mellitus: Plan: Hgb A1c 5.2 06/2022 Lantus 5 units in AM NovoLog per protocol Monitor BSG's closely (7) History of CVA (cerebrovascular accident): Plan: History of recurrent CVA despite DAPT and anticoagulation therapy Chronic right hemiplegia/left arm paralysis/mostly nonverbal/expressive aphasia management of Lovenox + PLavix per above. - Also on a statin. (8) H/O deep venous thrombosis: Plan: History of breakthrough DVT while on warfarin and Eliquis therapy, now on t herapeutic dose Lovenox per above (9) HTN (hypertension): Plan: Currently on Coreg. Lisinopril presently on hold. BP stable overall (10) DVT prophylaxis: Plan: on Lovenox BID per above Disposition lives with at home Acute Rehab/SNF upon discharge plan of care discussed with patient's in detail and at length all questions answered she is understanding, agreeable, comfortable with the plan of care Total of 45 minutes spent with patient care including patient interview and examination, laboratory studies review, medication review and adjustments, discussion with family Admission and Anticipated Discharge Date Admission Date: August 09, 2022 Subjective Follow-up for infected sacral decubitus ulcer, etc. Seen resting in bed, comfortable Awake and alert, tries to answer with nodding, yes or no Denies pain, shortness of breath Ate at least 50% of breakfast per staff No other issues per RN We visited patient around noon time Discussed update including lab results, conversation with Dr. Dodge, and plan of care with patient's Nasreen She is understanding, agreeable with the plan of care Review of Systems Review of Systems: all noted and negative except for above Physical Exam Physical Exam: General- not in distress, breathing with no with no effort or accessory muscle use Eyes- anicteric Neck- no JVD Lungs- clear breath sounds bilaterally, no crackles or wheezing noted Heart- normal rate, regular rhythm; no murmurs Abdomen- normal bowel sounds, nondistended, soft, nontender Sacral decubitus ulcer-less necrotic areas, no active discharge noted Minimal surrounding erythema Extremities- no pretibial edema, no calf tenderness Neuro- alert, no new gross focal neurologic deficits Skin- warm & dry Results & Data Results & Data Vital Signs (Past 12 Hours) Vital Signs Temp Pulse Resp BP BP Pulse Ox O2 Del Method 09/11/22 11:46 37.4 C 77 16 154/80 H 154/80 H 96 Room Air 09/11/22 07:53 37.2 C 86 16 148/80 H 97 Room Air 09/11/22 04:00 36.9 C 80 20 134/73 98 Room Air all noted and reviewed including below
[2022-09-11] MEDS ORDERED: LANTUS PER UNIT CHARGE SQ SCH (21:00)
[2022-09-11] MEDS: ENOXAPARIN INJ 120 MG/0.8 ML SYR SQ SCH (23:34)
[2022-09-12] MEDS: CEFEPIME 2,000 MG in SYRINGE 0 ML IV SCH ×3 (02:49→19:37)
[2022-09-12 07:14] LABS: Basophils # (auto) 0.03 K/uL (0-0.2); Basophils % (auto) 0.4 %; Eosinophils # (auto) 0.15 K/uL (0-0.50); Eosinophils % (auto) 1.9 %; Hematocrit (blood only) 36.3 % (42.0-52.0); Hemoglobin 11.1 g/dl (14.0-18.0); Immature Granulocytes # (auto) 0.02 K/uL (0.01-0.20); Immature Granulocytes % (auto) 0.3 %; Lymphocytes # (auto) 1.74 K/uL (1.2-3.4); Lymphocytes % (auto) 21.9 %; Mean Corpuscular Hemoglobin 25.1 pg (25.0-34.0); Mean Corpuscular Hgb Conc 30.6 g/dL (32.0-36.0); Mean Corpuscular Volume 81.9 fL (80.0-100.0); Mean Platelet Volume 10.1 fL (9.4-12.4); Monocytes # (auto) 0.47 K/uL (0.11-0.59); Monocytes % (auto) 5.9 %; Neutrophils # (auto) 5.54 K/uL (1.40-6.50); Neutrophils % (auto) 69.6 %; Platelet Count 289 K/uL (130-400); RDW Coefficient of Variation 18.4 % (11.5-14.5); RDW Standard Deviation 55.2 fL (36.4-46.3); Red Blood Count 4.43 M/uL (4.70-6.10); White Blood Count 7.95 K/ul (4.8-10.8)
[2022-09-12 08:01] LABS: BUN Creatinine Ratio 76.3 (10-20); Calcium 8.6 mg/dl (8.6-10.3); Creatinine Clr Calc Pharmacy 186.4 ml/min; Est GFR (African American) 148.6 ml/min; Est GFR (Non-African American) 128.2 ml/min; Magnesium 1.7 mg/dl (1.7-2.4); Potassium 4.1 mmol/L (3.5-5.1)
[2022-09-12] MEDS ORDERED: LANTUS PER UNIT CHARGE SQ SCH (09:00)
[2022-09-12] MEDS: ACETAMINOPHEN 325 MG TAB PO SCH ×4 (09:03→19:36)
[2022-09-12] MEDS: carvediloL 12.5 MG TAB PO SCH ×2 (09:03→18:05)
[2022-09-12] MEDS: ADVANCED PROBIOTIC 1250 MG CAPSULE PO SCH (09:04)
[2022-09-12] MEDS: PANTOprazole 40 MG TAB PO SCH ×2 (09:04→21:03)
[2022-09-12] MEDS: BACLOFEN 10 MG TAB PO SCH (09:04)
[2022-09-12] MEDS: CLOPIDOGREL BISULFATE 75 MG TAB PO SCH (09:04)
[2022-09-12] MEDS: COLLAGENASE OINT 30 GM TUBE EXT SCH (09:05)
[2022-09-12] MEDS: INSULIN ASPART PER UNIT CHARGE SC SCH ×4 (09:13→22:10)
[2022-09-12] MEDS: LANTUS PER UNIT CHARGE SQ SCH ×2 (09:13→22:11)
[2022-09-12] MEDS: MAGNESIUM OXIDE 400 MG TAB PO SCH ×2 (12:54→22:11)
[2022-09-12] MEDS: ENOXAPARIN INJ 120 MG/0.8 ML SYR SQ SCH (12:55)
--- NOTE | 2022-09-12 15:16 | Hospitalist Progress Note ---
Date of Service September 12, 2022 Assessment & Plan (1) Hematoma of right thigh: Plan: per previous hospitalist notes with addendum: Acute blood loss anemia, likely secondary to right thigh hematoma and left arm hematoma spontaneous, in the setting of Lovenox and Plavix use History of Recurrent DVT, and CVA Plan: Patient presenting from home with reported increased lethargy, taking Lovenox 120mg BID and Plavix As an outpatient, patient has been noted to have a downtrending hemoglobin (11.5 --> 8.0 --> 9.1 --> 8.9 on 07/27). Patient was started on iron replacement. 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 Colonoscopy was considered however patient was felt to not likely be able to tolerate the prep. In the ED, Hgb 5.9. Patient hemodynamically stable. CT abdomen/pelvis/angio: There is a large hematoma involving the medial aspect of the upper thigh measuring approximately 5.5 x 6.5 cm in axial dimension. Questionable heterogeneous density surrounding the right femur are concerning for second hematoma and measuring 5.7 x 5.5 cm in axial dimension. There is no evidence of active bleed. Decrease in left latissimus dorsi hematoma compared with 08/22/2022-resolving hematomas Significant soft tissue swelling throughout the left upper extremity Large foci of heterotopic ossification are again seen around the distal humerus and proximal forearm Remains stable with current comorbid conditions Hemoglobin remains stable at more than 11 as of 09/03/2022-we will continue current dose [facility]: no surgery recommended. He was transfused 4 unit of packed RBC; hemoglobin improved to [address] scan of the thigh was done on 08/13; stable size of hematoma. Venous duplex of left arm done on 08/18 shows large complex left axillary fluid collection typical for hematoma. Fish Bailer consulted: Dr. Richey- recommend to gradually start Lovenox- 40mg daily, then BID, then 80mg BID. Patient tolerated 2 days of Lovenox 80 mg twice daily; anti-Xa level was obtained on August 16; level was found to be 0.45. Discussion with hematology done again. Recommended to increase Lovenox to 100 mg twice daily and repeat anti-Xa level again. Repeat anti-Xa level was 0.6 which is within therapeutic range. Discussed with hematology again. Recommended to continue same doses. Lovenox is on hold for surgical debridement today and will be restarted in the evening Lovenox has been restarted following surgical debridement Has had debridement yesterday on 09/03/2022-discussed with the surgeon who will do another debridement on Tuesday with instructions for dressing thereafter if the patient goes to rehab on Tuesday or Tuesday Discussed with the in detail The surgeon has to do another I&D today for 323- On the request of patient's regarding work-up for anemia; GI was informed and patient was planned for colonoscopy as inpatient on 08/19. However, further discussion with the ; she did not want patient to undergo colonoscopy preparation as she feels he is not at his baseline functional status and wants to do as outpatient. 09/08 Patient's hemoglobin has been stable over the past couple of weeks Continue Lovenox 100 mg twice a day-occasionally held during debridement days 09/09 Hg stable Continue Lovenox 100 mg twice a day-occasionally held during debridement days 09/10 Hemoglobin stable Continue Lovenox twice a day 09/11 Hemoglobin stable Factor Xa 0.40 2 in the morning We will repeat this afternoon 4 hours after administration of Lovenox 09/12 Hemoglobin remained stable Repeat factor Xa tomorrow at 4 PM after fourth dose of Lovenox Fever likely secondary to Sacral Decub Ulcer Infection Blood culture: Negative Repeat urine culture: Negative Pneumonia ruled out Infected hematoma ruled out by CT Remains afebrile without any evidence of increasing white cell count Has been on ceftriaxone intravenously and also doxycycline, day 8 We will complete a 10-day course of antibiotic Has had fever of 38 C last night None since this morning Will get blood cultures and other blood test-blood cultures pending Denies any fever and or chills Sacral decubitus ulcer, stage II; POA Patient had sacral decubital ulcer which developed within 72 hours of hospitalization. s/p 2 bedside debridements by Gen Surg- Tue and Tue Surgical debridement done today Wound is looking much better and no evidence of infection Please see the picture of the sacral wound to have an idea about the status 3 sacral decubiti Further reviewing the chart it was noted that his sacral decubiti was stage II with impending skin breakdown on admission as on 08/13/2022 The sacral wound definitely showed to be stage II on 08/16/2022 Further exposure to underlying tissues noted to be on 08/26/2022 and as of 09/02/2022 the wound is looking to be stage II-III which required couple of times debridement by the surgeon Appreciate care from the surgery and wound care Will have another debridement on Friday 09/08 Patient had low-grade fever this morning Discussed with Dr. Dodge Foul order noted during evaluation of sacral decubitus ulcer Wound cultures obtained today Blood cultures 09/05: Negative Start cefepime plus Flagyl day #1 09/09 wound culture: gram neg bacilli blood culture: pending (+) fever in AM added Dapto to Cefepime + Flagyl s/p debridement today discussed at length with patient's and Dr. Dodge she is upset, very concerned plan of care explained Ms Downey is agreeable with plan including application of silver, IV abx and re- evaluate tomorrow 09/10 Afebrile since last night Wound culture: Gram-negative bacilli Blood cultures: Pending Continue Dapto, cefepime plus Flagyl Discussed with Dr. Dodge, continue with [employer] with silver Wound VAC not recommended at this point per Dr. Dodge 09/11 Wound culture: Pseudomonas, sensitive to cefepime Blood cultures: Pending Continue IV cefepime Discontinue Flagyl Continue daptomycin until nasal MRSA screen result is negative MRI ordered to rule out osteomyelitis 09/12 Had 1 episode of fever last night 38.0 Lumbar spine MRI: No osteomyelitis noted Blood cultures negative so far Clinically patient remained stable Decubitus ulcer seems to be improving based on photograph this morning More healthy tissues noted Discussed with Dr. Dodge Continue TEVIZZ, DC Santyl Left sided pleural effusion on room air likely from multiple blood transfusions, IV abx will give Lasix 20mg IV again today (day 3) Chest x-ray showed persistence of pleural effusion mainly on the left side Has been negative fluid balance of about 1800 mL since admission Will give another dose of Lasix of 40 mg today Repeat chest x-ray showed no pleural effusion-Lasix has been stopped He may need Lasix periodically Chest remains clear 09/12 Resolved with Lasix (4) Elevated troponin: (5) CAD (coronary artery disease): Plan: Likely due to demand ischemia in the setting of profound anemia Continue beta-josé and statin. Plavix was also restarted. Troponin flat, 1100, 1300, 1000 EKG: No signs of acute ischemia or infarct Echo 45 to 45%, mild apical wall hypokinesis Cardiology service consulted-no further further interventions at this point Possible UTI Urine culture x 2: [place] discussed with Erica GIBBS given Dapto x 2 days and completed oral doxycycline course. Hagan cath in place in setting of sacral decubital ulcer. As above has been on ceftriaxone day 8 today Antibiotic course is done (6) Type 2 diabetes mellitus: Plan: Hgb A1c 5.2 06/2022 Lantus 5 units in AM NovoLog per protocol Monitor BSG's closely (7) History of CVA (cerebrovascular accident): Plan: History of recurrent CVA despite DAPT and anticoagulation therapy Chronic right hemiplegia/left arm paralysis/mostly nonverbal/expressive aphasia management of Lovenox + PLavix per above. - Also on a statin. (8) H/O deep venous thrombosis: Plan: History of breakthrough DVT while on warfarin and Eliquis therapy, now on therapeutic dose Lovenox per above (9) HTN (hypertension): Plan: Currently on Coreg. Lisinopril presently on hold. BP stable overall (10) DVT prophylaxis: Plan: on Lovenox BID per above Disposition lives with at home Acute Rehab/SNF upon discharge plan of care discussed with patient's in detail and at length all questions answered she is understanding, agreeable, comfortable with the plan of care Total of 45 minutes spent with patient care including patient interview and examination, laboratory studies review, medication review and adjustments, discussion with family Admission and Anticipated Discharge Date Admission Date: August 09, 2022 Subjective Follow-up for infected sacral decubitus ulcer, etc. Seen resting in bed, sitting up, awake and alert Answers questions with yes or no, nods Feels fine, denies pain, shortness of breath Finished her breakfast this morning Seen before and with patient's at the bedside Remains stable overall No other symptoms Review of Systems Review of Systems: all noted and negative except for above Physical Exam Physical Exam: General- not in distress, no effort or accessory muscle use Eyes- anicteric Neck- no JVD Lungs- clear breath sounds bilaterally, crackles noted Heart- normal rate, regular rhythm; no murmurs Abdomen- normal bowel sounds, nondistended, soft, nontender Extremities- no pretibial edema, no calf tenderness Sacral decubitus ulcer-photograph taken by RN this morning Seems to be improving, healthier tissues noted surrounding issues of eschar Neuro- alert, oriented x 3; no gross focal neurologic deficits Skin- warm & dry Results & Data Results & Data Vital Signs (Past 12 Hours) Vital Signs Temp Pulse Pulse Resp BP BP Pulse Ox 09/12/22 08:00 78 09/12/22 11:41 36.6 C 66 16 143/80 H 95 09/12/22 08:01 37.3 C 83 16 147/81 H 95 09/12/22 03:18 37.6 C H 83 18 144/70 H 94 O2 Del Method 09/12/22 08:00 09/12/22 11:41 Room Air 09/12/22 08:01 Room Air 09/12/22 03:18 Room Air all noted and reviewed including below
[2022-09-13] MEDS: ENOXAPARIN INJ 120 MG/0.8 ML SYR SQ SCH ×2 (00:23→12:15)
[2022-09-13] MEDS ORDERED: SODIUM CHLORIDE 0.45 % 1,000 ML IV ONE (04:23)
[2022-09-13] MEDS: CEFEPIME 2,000 MG in SYRINGE 0 ML IV SCH ×2 (04:29→12:15)
[2022-09-13] MEDS: ACETAMINOPHEN 325 MG TAB PO SCH ×4 (05:17→22:08)
[2022-09-13 07:45] LABS: Basophils # (auto) 0.02 K/uL (0-0.2); Basophils % (auto) 0.2 %; Eosinophils # (auto) 0.12 K/uL (0-0.50); Eosinophils % (auto) 1.4 %; Hematocrit (blood only) 36.3 % (42.0-52.0); Hemoglobin 11.4 g/dl (14.0-18.0); Immature Granulocytes # (auto) 0.02 K/uL (0.01-0.20); Immature Granulocytes % (auto) 0.2 %; Lymphocytes # (auto) 1.67 K/uL (1.2-3.4); Lymphocytes % (auto) 19.8 %; Mean Corpuscular Hemoglobin 25.3 pg (25.0-34.0); Mean Corpuscular Hgb Conc 31.4 g/dL (32.0-36.0); Mean Corpuscular Volume 80.5 fL (80.0-100.0); Monocytes % (auto) 5.9 %; Neutrophils # (auto) 6.09 K/uL (1.40-6.50); Neutrophils % (auto) 72.5 %; Platelet Count 334 K/uL (130-400); RDW Coefficient of Variation 18.4 % (11.5-14.5); RDW Standard Deviation 53.6 fL (36.4-46.3); Red Blood Count 4.51 M/uL (4.70-6.10); White Blood Count 8.42 K/ul (4.8-10.8)
[2022-09-13] MEDS: ADVANCED PROBIOTIC 1250 MG CAPSULE PO SCH (08:01)
[2022-09-13] MEDS: PANTOprazole 40 MG TAB PO SCH ×2 (08:01→21:46)
[2022-09-13] MEDS: BACLOFEN 10 MG TAB PO SCH (08:01)
[2022-09-13] MEDS: carvediloL 12.5 MG TAB PO SCH ×2 (08:02→18:15)
[2022-09-13] MEDS: CLOPIDOGREL BISULFATE 75 MG TAB PO SCH (08:02)
[2022-09-13 08:03] LABS: BUN Creatinine Ratio 73.8 (10-20); Calcium 8.7 mg/dl (8.6-10.3); Creatinine Clr Calc Pharmacy 152.8 ml/min; Est GFR (African American) 142.6 ml/min; Magnesium 1.7 mg/dl (1.7-2.4)
[2022-09-13] MEDS: INSULIN ASPART PER UNIT CHARGE SC SCH ×4 (09:09→22:09)
[2022-09-13] MEDS: LANTUS PER UNIT CHARGE SQ SCH ×2 (09:10→22:08)
--- NOTE | 2022-09-13 09:23 | XRay Report ---
XR chest 1V portable HISTORY: 62 years-old Male ff up pleural effusion follow-up study in a patient with reported pleural effusions COMPARISON: Chest radiograph 09/04/2022, chest CT 08/25/2022. TECHNIQUE: AP view of the chest FINDINGS: Cardiomediastinal and hilar silhouettes are unchanged. Prior median sternotomy with CABG. No pneumoth orax, overt pulmonary edema lower airspace consolidation. Unchanged mild blunting the lateral costoph renic angles. Degenerative changes of the shoulders and spine. Unchanged appearance of the right scap tomasz with sclerotic appearance. IMPRESSION: 1. Cardiomegaly without overt pulmonary edema. 2. Probable small pleural effusions again noted. ACT 112: Negative or not required by law. The above report was generated using voice recognition software. It may contain grammatical, syntax o r spelling errors. Electronically signed by: Abdon Gr M.D. 09/13/2022 9:22 AM
[2022-09-13 10:13] LABS: Albumin Level 2.8 gm/dl (3.4-5.0); Bilirubin,Total 0.3 mg/dl (0.2-1.0); Total Protein 6.3 gm/dl (6.0-8.3)
[2022-09-13 11:25] LABS: Appearance Urine Clear (Clear); Bilirubin Urine Negative (Negative); Blood Urine Negative (Negative); Color Urine Yellow; Glucose Urine UA Negative (Negative); Ketones Urine Negative (Negative); Leukocyte Esterase Urine Negative (Negative); Nitrite Urine Negative (Negative); Protein Urine 1+ (Negative); Urobilinogen Urine Negative (Negative)
[2022-09-13 11:37] LABS: Epithelial Cell Urine 0-5 /lpf (0-5); Mucus Urine Present (None Prsent); RBC Urine 0-4 /hpf (0-4); WBC Urine 0-5 /hpf (0-5)
[2022-09-13 11:38] LABS: Bacteria Urine 2+ (Negative)
[2022-09-13] MEDS: MAGNESIUM OXIDE 400 MG TAB PO SCH ×2 (12:15→22:08)
--- NOTE | 2022-09-13 14:32 | Magnetic Resonance Report ---
MR pelvis wo con CLINICAL HISTORY: infected sacral decubitus ulcer TECHNIQUE: Multiplanar multisequence images were obtained of the abdomen with and without the adminis tration of contrast. COMPARISON: Comparison is made to CT abdomen pelvis 08/10/2022 FINDINGS: Bladder: Hagan catheter is seen. Reproductive organs: Unremarkable. Vessels: Unremarkable. Abdominal wall: There is a prominent sacral ulcer measuring approximately 5 cm wide and 7 cm in crani ocaudal dimension. There is surrounding soft tissue edema. No drainable fluid collection is seen. Bones: There is T2 hyperintensity in the posterior lower sacrum and upper coccyx concerning for osteo myelitis. IMPRESSION: Sacral decubitus ulcer with underlying cellulitis and concern for sacrococcygeal osteomyelitis. No ev idence of drainable fluid collection. ACT 112: Negative or not required by law. Electronically signed by: Bradley Reeves M.D. 09/13/2022 2:31 PM
--- NOTE | 2022-09-13 16:32 | Surgery Progress Note ---
Date of Service September 13, 2022 Assessment & Plan (1) Sacral wound: Plan: We have been following the patient for sacral wound Over the weekend continued with silver aquacel dressings and frequent repositioning MRI obtained today showing concern for sacrococcygeal osteomyelitis Hospitalists discussed case with ID who are recommending IV zosyn. with possibility of coccygectomy at some point We will evaluate wound again tomorrow and likely perform further bedside debridement and make further recommendations from there Admission and Anticipated Discharge Date Admission Date: August 09, 2022 Supervising Physician Co-Signing Physician Notes This patient was seen with the surgical PA and this plan was devised. Subjective Patient resting in bed. Low grade temps noted this AM. Has been sweating per . Physical Exam Physical Exam: awake, in bed Gastrointestinal (Abdomen): sacral wound noted with some black eschar to the superior periphery, appears to have an edge that is peeling off with viable tissue underneath Results & Data Vital Signs (Past 12 Hours) Vital Signs Temp Pulse Pulse Resp BP BP Pulse Ox 09/13/22 15:59 37.1 C 86 16 137/69 97 09/13/22 08:00 80 09/13/22 08:57 36.4 C L 78 22 103/53 L 98 09/13/22 06:37 37.3 C O2 Del Method 09/13/22 15:59 Room Air 09/13/22 08:00 09/13/22 08:57 Room Air 09/13/22 06:37 PG Care Time/CCT Total # of Minutes Spent Total Time Spent with Patient: Total time spent is greater than 50% in coordination of care (as documented) at patient's floor/unit and/or counseling patient: Coding Level of Care Code 79252 SUB INP/OBS CARE 125MIN Diagnoses Sacral wound S31.000A
[2022-09-13] MEDS ORDERED: PIPERACILLIN/TAZOBACTAM 4.5 GM in DEXTROSE 5% 100 ML IV SCH (17:00)
[2022-09-13] MEDS ORDERED: PIPERACILLIN/TAZOBACTAM 4.5 GM (over 30 mins) IV ONE (17:15)
[2022-09-13] MEDS: SODIUM CHLORIDE 0.9% 1000ML 1,000 ML IV SCH (18:13)
--- NOTE | 2022-09-13 18:48 | Hospitalist Progress Note ---
Date of Service September 13, 2022 Assessment & Plan (1) Hematoma of right thigh: Plan: per previous hospitalist notes with addendum: Acute blood loss anemia, likely secondary to right thigh hematoma and left arm hematoma spontaneous, in the setting of Lovenox and Plavix use History of Recurrent DVT, and CVA Plan: Patient presenting from home with reported increased lethargy, taking Lovenox 120mg BID and Plavix As an outpatient, patient has been noted to have a downtrending hemoglobin (11.5 --> 8.0 --> 9.1 --> 8.9 on 07/27). Patient was started on iron replacement. 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 Colonoscopy was considered however patient was felt to not likely be able to tolerate the prep. In the ED, Hgb 5.9. Patient hemodynamically stable. CT abdomen/pelvis/angio: There is a large hematoma involving the medial aspect of the upper thigh measuring approximately 5.5 x 6.5 cm in axial dimension. Questionable heterogeneous density surrounding the right femur are concerning for second hematoma and measuring 5.7 x 5.5 cm in axial dimension. There is no evidence of active bleed. Decrease in left latissimus dorsi hematoma compared with 08/22/2022-resolving hematomas Significant soft tissue swelling throughout the left upper extremity Large foci of heterotopic ossification are again seen around the distal humerus and proximal forearm Remains stable with current comorbid conditions Hemoglobin remains stable at more than 11 as of 09/03/2022-we will continue current dose of Lovenox [facility] Gen surg consulted: no surgery recommended. He was transfused 4 unit of packed RBC; hemoglobin improved to [address] scan of the thigh was done on 08/13; stable size of hematoma. Venous duplex of left arm done on 08/18 shows large complex left axillary fluid collection typical for hematoma. Lead Web Application Developer consulted: Dr. Richey- recommend to gradually start Lovenox- 40mg daily, then BID, then 80mg BID. Patient tolerated 2 days of Lovenox 80 mg twice daily; anti-Xa level was obtained on August 16; level was found to be 0.45. Discussion with hematology done again. Recommended to increase Lovenox to 100 mg twice daily and repeat anti-Xa level again. Repeat anti-Xa level was 0.6 which is within therapeutic range. Discussed with hematology again. Recommended to continue same doses. Lovenox is on hold for surgical debridement today and will be restarted in the evening Lovenox has been restarted following surgical debridement Has had debridement yesterday on 09/03/2022-discussed with the surgeon who will do another debridement on Tuesday with instructions for dressing thereafter if the patient goes to rehab on Tuesday or Tuesday Discussed with the in detail The surgeon has to do another I&D today for 323- On the request of patient's regarding work-up for anemia; GI was informed and patient was planned for colonoscopy as inpatient on 08/19. However, further discussion with the ; she did not want patient to undergo colonoscopy preparation as she feels he is not at his baseline functional status and wants to do as outpatient. 09/08 Patient's hemoglobin has been stable over the past couple of weeks Continue Lovenox 100 mg twice a day-occasionally held during debridement days 09/09 Hg stable Continue Lovenox 100 mg twice a day-occasionally held during debridement days 09/10 Hemoglobin stable Continue Lovenox twice a day 09/11 Hemoglobin stable Factor Xa 0.40 2 in the morning We will repeat this afternoon 4 hours after administration of Lovenox 09/12 Hemoglobin remained stable Repeat factor Xa tomorrow at 4 PM after fourth dose of Lovenox 09/13 No signs of active bleeding Hemoglobin stable around 11 Antifactor [id number] Jason, recommend to resume Lovenox 100 mg twice daily We will monitor closely Fever likely secondary to Sacral Decub Ulcer Infection Blood culture: Negative Repeat urine culture: Negative Pneumonia ruled out Infected hematoma ruled out by CT Remains afebrile without any evidence of increasing white cell count Has been on ceftriaxone intravenously and also doxycycline, day 8 We will complete a 10-day course of antibiotic Has had fever of 38 C last night None since this morning Will get blood cultures and other blood test-blood cultures pending Denies any fever and or chills Sacral decubitus ulcer, stage II; POA Patient had sacral decubital ulcer which developed within 72 hours of hospitalization. s/p 2 bedside debridements by Gen Surg- Tue and Tue Surgical debridement done today Wound is looking much better and no evidence of infection Please see the picture of the sacral wound to have an idea about the status 3 sacral decubiti Further reviewing the chart it was noted that his sacral decubiti was stage II with impending skin breakdown on admission as on 08/13/2022 The sacral wound definitely showed to be stage II on 08/16/2022 Further exposure to underlying tissues noted to be on 08/26/2022 and as of 09/02/2022 the wound is looking to be stage II-III which required couple of times debridement by the surgeon Appreciate care from the surgery and wound care Will have another debridement on Friday 09/08 Patient had low-grade fever this morning Discussed with Dr. Dodge Foul order noted during evaluation of sacral decubitus ulcer Wound cultures obtained today Blood cultures 09/05: Negative Start cefepime plus Flagyl day #1 09/09 wound culture: gram neg bacilli blood culture: pending (+) fever in AM added Dapto to Cefepime + Flagyl s/p debridement today discussed at length with patient's and Dr. Dodge she is upset, very concerned plan of care explained Ms Downey is agreeable with plan including application of silver, IV abx and re- evaluate tomorrow 09/10 Afebrile since last night Wound culture: Gram-negative bacilli Blood cultures: Pending Continue Dapto, cefepime plus Flagyl Discussed with Dr. Dodge, continue with [employer] [place] with silver Wound VAC not recommended at this point per Dr. Dodge 09/11 Wound culture: Pseudomonas, sensitive to cefepime Blood cultures: Pending Continue IV cefepime Discontinue Flagyl Continue daptomycin until nasal MRSA screen result is negative MRI ordered to rule out osteomyelitis 09/12 Had 1 episode of fever last night 38.0 Lumbar spine MRI: No osteomyelitis noted Blood cultures negative so far Clinically patient remained stable Decubitus ulcer seems to be improving based on photograph this morning More healthy tissues noted Discussed with Dr. Dodge Continue [employer] [place] [employer], DC Santyl 09/13 Had another episode of fever overnight 38.0 Sacral/coccygeal MRI:Sacral decubitus ulcer with underlying cellulitis and concern for sacrococcygeal osteomyelitis. No evidence of drainable fluid collection. Discussed with infectious disease service, Dr. Ricardo Sauceda Recommend to transition from cefepime to IV Zosyn Recommend surgical intervention for sacrococcygeal osteomyelitis Discussed with Dr. Dodge-plan for repeat debridement at bedside tomorrow She will discuss with Dr. Parkinson regarding possible surgery for sacrococcygeal osteomyelitis Continue Aquacel twice daily, wash with soap and water, prior Continue strict turning of patient every hour Left sided pleural effusion on room air likely from multiple blood transfusions, IV abx will give Lasix 20mg IV again today (day 3) Chest x-ray showed persistence of pleural effusion mainly on the left side Has been negative fluid balance of about 1800 mL since admission Will give another dose of Lasix of 40 mg today Repeat chest x-ray showed no pleural effusion-Lasix has been stopped He may need Lasix periodically Chest remains clear 09/12 Resolved with Lasix (4) Elevated troponin: (5) CAD (coronary artery disease): Plan: Likely due to demand ischemia in the setting of profound anemia Continue beta-josé and statin. Plavix was also restarted. Troponin flat, 1100, 1300, 1000 EKG: No signs of acute ischemia or infarct Echo 45 to 45%, mild apical wall hypokinesis Cardiology service consulted-no further further interventions at this point Possible UTI Urine culture x 2: Coag Neg Peggy discussed with Erica GIBBS given Dapto x 2 days and completed oral doxycycline course. Hagan cath in place in setting of sacral decubital ulcer. As above has been on ceftriaxone day 8 today Antibiotic course is done (6) Type 2 diabetes mellitus: Plan: Hgb A1c 5.2 06/2022 Lantus 5 units in AM NovoLog per protocol Monitor BSG's closely (7) History of CVA (cerebrovascular accident): Plan: History of recurrent CVA despite DAPT and anticoagulation therapy Chronic right hemiplegia/left arm paralysis/mostly nonverbal/expressive aphasia management of Lovenox + PLavix per above. - Also on a statin. (8) H/O deep venous thrombosis: Plan: History of breakthrough DVT while on warfarin and Eliquis therapy, now on therapeutic dose Lovenox per above (9) HTN (hypertension): Plan: Currently on Coreg. Lisinopril presently on hold. BP stable overall (10) DVT prophylaxis: Plan: on Lovenox BID per above Disposition lives with at home Acute Rehab/SNF upon discharge plan of care discussed with patient's in detail and at length all questions answered she is understanding, agreeable, comfortable with the plan of care Total of 60 minutes spent with patient care including patient interview and examination, laboratory studies review, medication review and adjustments, discussion with family Admission and Anticipated Discharge Date Admission Date: August 09, 2022 Subjective Follow-up for infected sacral decubitus ulcer, etc. Seen resting in bed, comfortable, awake and alert No signs of pain, distress Had a fever 38.0 overnight Had some breakfast today per staff midwife No nausea, vomiting, shortness of breath noted Patient's Ms. Downey at the bedside visiting Reevaluated the patient in the afternoon alongside Dr. Dodge, KUN Carter, and OMER Sevilla Sacral decubitus ulcer inspected Review of Systems Review of Systems: all noted and negative except for above Physical Exam 2 Physical Exam: General-awake and alert, not in distress, patient breathing without effort or accessory muscle use Eyes- anicteric Neck- no JVD Lungs- clear breath sounds, no crackles or wheezing bilaterally Heart- normal rate, regular rhythm; no murmurs Abdomen- normal bowel sounds, nondistended, soft, nontender Extremities- no pretibial edema, no calf tenderness Sacral decubitus ulcer-seems to be improving Some healthy looking tissues noted at the border Areas of eschar seems to be easily from underlying healthy tissues Wound seems to be less deep Dryness of wound surface noted Neuro-no new gross focal neurologic deficits Skin- warm & dry Results & Data Results & Data Vital Signs (Past 12 Hours) Vital Signs Temp Pulse Pulse Resp BP BP Pulse Ox 09/13/22 15:59 37.1 C 86 16 137/69 97 09/13/22 08:00 80 09/13/22 08:57 36.4 C L 78 22 103/53 L 98 O2 Del Method 09/13/22 15:59 Room Air 09/13/22 08:00 09/13/22 08:57 Room Air
[2022-09-13] MEDS: ENOXAPARIN 100 MG/1ML SYR SQ SCH (23:05)
[2022-09-13] MEDS: PIPERACILLIN/TAZOBACTAM 4.5 GM in DEXTROSE 5% 100 ML IV SCH (23:09)
[2022-09-13] MEDS ORDERED: PIPERACILLIN/TAZOBACTAM 3.375 GM CI (over 4 hrs) IV SCH (23:15)
[2022-09-14] MEDS: PIPERACILLIN/TAZOBACTAM 4.5 GM in DEXTROSE 5% 100 ML IV SCH ×3 (06:22→22:55)
[2022-09-14 07:48] LABS: Basophils # (auto) 0.04 K/uL (0-0.2); Basophils % (auto) 0.5 %; Eosinophils # (auto) 0.17 K/uL (0-0.50); Eosinophils % (auto) 2.1 %; Hemoglobin 10.9 g/dl (14.0-18.0); Immature Granulocytes # (auto) 0.03 K/uL (0.01-0.20); Immature Granulocytes % (auto) 0.4 %; Lymphocytes # (auto) 1.72 K/uL (1.2-3.4); Lymphocytes % (auto) 21.3 %; Mean Corpuscular Hemoglobin 25.5 pg (25.0-34.0); Mean Corpuscular Hgb Conc 31.1 g/dL (32.0-36.0); Mean Corpuscular Volume 81.8 fL (80.0-100.0); Mean Platelet Volume 10.5 fL (9.4-12.4); Monocytes % (auto) 6.2 %; Neutrophils # (auto) 5.61 K/uL (1.40-6.50); Neutrophils % (auto) 69.5 %; Platelet Count 299 K/uL (130-400); RDW Coefficient of Variation 18.2 % (11.5-14.5); RDW Standard Deviation 53.9 fL (36.4-46.3); Red Blood Count 4.28 M/uL (4.70-6.10); White Blood Count 8.07 K/ul (4.8-10.8)
[2022-09-14 08:04] LABS: Calcium 8.6 mg/dl (8.6-10.3); Creatinine Clr Calc Pharmacy 180.2 ml/min; Est GFR (African American) 145.5 ml/min; Est GFR (Non-African American) 125.5 ml/min; Magnesium 1.6 mg/dl (1.7-2.4)
[2022-09-14] MEDS: ADVANCED PROBIOTIC 1250 MG CAPSULE PO SCH (08:46)
[2022-09-14] MEDS: PANTOprazole 40 MG TAB PO SCH ×2 (08:46→21:20)
[2022-09-14] MEDS: BACLOFEN 10 MG TAB PO SCH (08:47)
[2022-09-14] MEDS: carvediloL 12.5 MG TAB PO SCH ×2 (08:47→16:56)
[2022-09-14] MEDS: CLOPIDOGREL BISULFATE 75 MG TAB PO SCH (08:47)
[2022-09-14] MEDS: ACETAMINOPHEN 325 MG TAB PO SCH ×4 (08:47→21:20)
[2022-09-14] MEDS: MAGNESIUM OXIDE 400 MG TAB PO SCH ×2 (08:48→21:20)
[2022-09-14] MEDS: LANTUS PER UNIT CHARGE SQ SCH ×2 (08:57→21:20)
[2022-09-14] MEDS: INSULIN ASPART PER UNIT CHARGE SC SCH ×4 (08:57→21:22)
[2022-09-14] MEDS: ENOXAPARIN 100 MG/1ML SYR SQ SCH (13:37)
--- NOTE | 2022-09-14 13:56 | Pharmacy Report ---
Pharmacy Glycemic Short Note 2 - Date of Service September 14, 2022 - Glycemic Short BSG Results (Last 24 hours): 09/13/22 09/14/22 09/14/22 20:09 07:21 07:47 Glucose 166 H POC Glucose 204 H 160 H 09/14/22 11:59 Glucose POC Glucose 183 H OUTPATIENT ANTIDIABETIC REGIMEN: * Lantus 14 units qAM + 10 units qPM * Novolog 10 units AC * HbA1C = 6.7% (08/21/21) ASSESSMENT: 09/14 * The patient received 60 units of insulin yesterday, of which 28 were basal * Stressors are stable, including a sacral wound currently on Zosyn * Fasting blood glucose above goal this AM, will trial increasing Lantus based on nighttime BSG * Novolog parameters tightened yesterday as outlined below 09/11: * Mr Turner is a 62 y/o M with a PMH of IDDM who has been hospitalized for about 1 month. * Most recently, the patient's blood sugars are trending upwards. He had been maintained on Lantus 5 units daily + Novolog ~30 units per day. * Yesterday BSGs were [id number] mg/dL. He received 51 units of insulin (19 units of basal and 32 units of bolus). Will resume patient's home Lantus dosing for now and titrate as appropriate. * Novolog weight-based stress of 3 for now due to basal deficiency. Loosen as BSGs trend downwards. PLAN FOR INPATIENT GLYCEMIC CONTROL: * Basal insulin * Lantus 14/16 units SQ BID * Bolus insulin * NovoLog per scale ACHS or Q6hrs while NPO * Goal Range: Low 110 mg/dL - High 140 mg/dL * Correction Factor: 20 mg/dL/unit * Nutritional / Prandial insulin per carb ratio of 1 unit per 7 grams CHO consumed
--- NOTE | 2022-09-14 14:01 | Surgery Progress Note ---
This patient was seen, examined and a bedside debridement was performed. Consent obtained and placed on the chart. Necrotic tissue was removed. Healthy, beefy red and bleeding tissue was reached circumferentially with marked improved appearance of the wound. Wet to dry dressing was applied. Of note, this case was discussed with our wound care surgeon here who also does not perform sacrococcygeal debridements and suggested transfer if that is available at a tertiary care center to expedite the resolution of the suspected osteomyelitis. A consideration for plastic surgery involvement can also be made at that point to propose methods to expedite the healing of the wound. Date of Service September 14, 2022 Assessment & Plan (1) Sacral wound: Plan: We have been following the patient for sacral wound Bedside debridement has been performed by Dr. Vaz who will update note with procedure Wound was re-dressed with wet-dry saline gauze, covered with ABD pad and some medipore tape...to be changed daily and as needed Will follow up again tomorrow Continue IV abx plan as outlined by ID Admission and Anticipated Discharge Date Admission Date: August 09, 2022 Subjective Patient resting in bed. Appears in no distress Physical Exam Gastrointestinal (Abdomen): sacral wound noted with some black eschar to the superior periphery, appears to have an edge that is peeling off with viable tissue underneath, also some dark ened areas of the periphery are noted bilaterally Results & Data Vital Signs (Past 12 Hours) Vital Signs Temp Pulse Resp BP Pulse Ox O2 Del Method 09/14/22 11:23 37.1 C 73 23 133/72 96 Room Air 09/14/22 03:06 36.8 C 83 18 137/75 97 Room Air PG Care Time/CCT Total # of Minutes Spent Total Time Spent with Patient: Total time spent is greater than 50% in coordination of care (as documented) at patient's floor/unit and/or counseling patient: Coding Level of Care Code 75032 SUB INP/OBS CARE 25MIN Diagnoses Sacral wound S31.000A
[2022-09-14] MEDS: SODIUM CHLORIDE 0.9% 1000ML 1,000 ML IV SCH (16:54)
--- NOTE | 2022-09-14 17:40 | Hospitalist Progress Note ---
Date of Service September 14, 2022 Assessment & Plan (1) Hematoma of right thigh: Plan: per previous hospitalist notes with addendum: Acute blood loss anemia, likely secondary to right thigh hematoma and left arm hematoma spontaneous, in the setting of Lovenox and Plavix use History of Recurrent DVT, and CVA Plan: Patient presenting from home with reported increased lethargy, taking Lovenox 120mg BID and Plavix As an outpatient, patient has been noted to have a downtrending hemoglobin (11.5 --> 8.0 --> 9.1 --> 8.9 on 07/27). Patient was started on iron replacement. 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 Colonoscopy was considered however patient was felt to not likely be able to tolerate the prep. In the ED, Hgb 5.9. Patient hemodynamically stable. CT abdomen/pelvis/angio: There is a large hematoma involving the medial aspect of the upper thigh measuring approximately 5.5 x 6.5 cm in axial dimension. Questionable heterogeneous density surrounding the right femur are concerning for second hematoma and measuring 5.7 x 5.5 cm in axial dimension. There is no evidence of active bleed. Decrease in left latissimus dorsi hematoma compared with 08/22/2022-resolving hematomas Significant soft tissue swelling throughout the left upper extremity Large foci of heterotopic ossification are again seen around the distal humerus and proximal forearm Remains stable with current comorbid conditions Hemoglobin remains stable at more than 11 as of 09/03/2022-we will continue current dose of Lovenox [facility] Gen surg consulted: no surgery recommended. He was transfused 4 unit of packed RBC; hemoglobin improved to [address] scan of the thigh was done on 08/13; stable size of hematoma. Venous duplex of left arm done on 08/18 shows large complex left axillary fluid collection typical for hematoma. Edge Inker Uppers consulted: Dr. Richey- recommend to gradually start Lovenox- 40mg daily, then BID, then 80mg BID. Patient tolerated 2 days of Lovenox 80 mg twice daily; anti-Xa level was obtained on August 16; level was found to be 0.45. Discussion with hematology done again. Recommended to increase Lovenox to 100 mg twice daily and repeat anti-Xa level again. Repeat anti-Xa level was 0.6 which is within therapeutic range. Discussed with hematology again. Recommended to continue same doses. Lovenox is on hold for surgical debridement today and will be restarted in the evening Lovenox has been restarted following surgical debridement Has had debridement yesterday on 09/03/2022-discussed with the surgeon who will do another debridement on Tuesday with instructions for dressing thereafter if the patient goes to rehab on Tuesday or Tuesday Discussed with the in detail The surgeon has to do another I&D today for 323- On the request of patient's regarding work-up for anemia; GI was informed and patient was planned for colonoscopy as inpatient on 08/19. However, further discussion with the ; she did not want patient to undergo colonoscopy preparation as she feels he is not at his baseline functional status and wants to do as outpatient. 09/14 Patient's hemoglobin has been stable over the past couple of weeks Repeat factor Xa : 1.[address] Jason, recommend to resume Lovenox 100 mg twice daily monitor closely Fever likely secondary to Sacral Decub Ulcer Infection Blood culture: Negative Repeat urine culture: Negative Pneumonia ruled out Infected hematoma ruled out by CT Remains afebrile without any evidence of increasing white cell count Has been on ceftriaxone intravenously and also doxycycline, day 8 We will complete a 10-day course of antibiotic Has had fever of 38 C last night None since this morning Will get blood cultures and other blood test-blood cultures pending Denies any fever and or chills Sacral decubitus ulcer, stage II; POA Patient had sacral decubital ulcer which developed within 72 hours of hospitalization. s/p 2 bedside debridements by Gen Surg- Tue and Mon Surgical debridement done today Wound is looking much better and no evidence of infection Please see the picture of the sacral wound to have an idea about the status 3 sacral decubiti Further reviewing the chart it was noted that his sacral decubiti was stage II with impending skin breakdown on admission as on 08/13/2022 The sacral wound definitely showed to be stage II on 08/16/2022 Further exposure to underlying tissues noted to be on 08/26/2022 and as of 09/02/2022 the wound is looking to be stage II-III which required couple of times debridement by the surgeon Appreciate care from the surgery and wound care Will have another debridement on Thursday 09/14 Status post serial debridement of sacral decubitus ulcer by general surgery Patient had intermittent fever of 38.0 Wound culture: Positive Pseudomonas Repeat blood culture: Negative Urine culture: Pending Chest x-ray: No pneumonia Sacral/coccygeal MRI:Sacral decubitus ulcer with underlying cellulitis and concern for sacrococcygeal osteomyelitis. No evidence of drainable fluid collection. Discussed with infectious disease service, Dr. Ricardo Sauceda Recommend to transition from cefepime to IV Zosyn-day #2 Recommend surgical intervention for General surgery service recommending transfer to [facility] for possible surgical intervention of sacrococcygeal osteomyelitis Continue Aquacel twice daily, wash with soap and water, prior Continue strict turning of patient every hour Left sided pleural effusion, resolved on room air likely from multiple blood transfusions, IV abx Resolved with Lasix Elevated troponin: CAD (coronary artery disease): Plan: Likely due to demand ischemia in the setting of profound anemia Continue beta-josé and statin. Plavix was also restarted. Troponin flat, 1100, 1300, 1000 EKG: No signs of acute ischemia or infarct Echo 45 to 45%, mild apical wall hypokinesis Cardiology service consulted-no further further interventions at this point Had episode of nonsustained V. tach 9 beats-no recurrence Continue carvedilol Type 2 diabetes mellitus: Plan: Hgb A1c 5.2 06/2022 NovoLog per protocol Monitor BSG's closely History of CVA (cerebrovascular accident): Plan: History of recurrent CVA despite DAPT and anticoagulation therapy Chronic right hemiplegia/left arm paralysis/mostly nonverbal/expressive aphasia management of Lovenox + PLavix per above. - Also on a statin. H/O deep venous thrombosis: Plan: History of breakthrough DVT while on warfarin and Eliquis therapy, now on therapeutic dose Lovenox per above HTN (hypertension): Plan: Currently on Coreg. Lisinopril presently on hold. BP stable overall DVT prophylaxis: Plan: on Lovenox BID per above Disposition lives with at home Acute Rehab/SNF upon discharge plan of care discussed with patient's in detail and at length all questions answered she is understanding, agreeable, comfortable with the plan of care Total of at least 60 minutes spent with patient care including patient interview and examination, laboratory studies review, medication review and adjustments, discussion with family Admission and Anticipated Discharge Date Admission Date: August 09, 2022 Subjective Follow-up for infected sacral decubitus ulcer with osteomyelitis, etc. Seen resting in bed, awake and alert Not in distress Answers with reports Patient is sleepy, appears tired No pain, shortness of breath, nausea No other new symptoms Review of Systems Review of Systems: all noted and negative except for above Physical Exam Physical Exam: General- not in distress,breathing with no effort or accessory muscle use Eyes- anicteric Neck- no JVD Lungs- clear breath sounds bilaterally no rales/wheezing Heart- normal rate, regular rhythm; no murmurs Abdomen- normal bowel sounds, nondistended, soft, nontender Extremities- no pretibial edema, no calf tenderness Neuro-no new neurologic deficits Skin- warm & dry Results & Data Results & Data Vital Signs (Past 12 Hours) Vital Signs Temp Pulse Resp BP Pulse Ox O2 Del Method 09/14/22 14:57 36.7 C 81 18 155/82 H 97 Room Air 09/14/22 11:23 37.1 C 73 23 133/72 96 Room Air all noted and reviewed including below
[2022-09-14] MEDS: ATORVASTATIN 40 MG TAB PO SCH (22:52)
[2022-09-14] MEDS ORDERED: SODIUM CHLORIDE 0.45 % 1,000 ML IV ONE (23:14)
[2022-09-15] MEDS: ACETAMINOPHEN 325 MG TAB PO SCH ×4 (02:51→22:32)
[2022-09-15] MEDS: PIPERACILLIN/TAZOBACTAM 4.5 GM in DEXTROSE 5% 100 ML IV SCH ×3 (06:18→22:43)
[2022-09-15 08:20] LABS: BUN Creatinine Ratio 62.8 (10-20); Calcium 8.6 mg/dl (8.6-10.3); Creatinine Clr Calc Pharmacy 169.6 ml/min; Est GFR (African American) 141.2 ml/min; Est GFR (Non-African American) 121.9 ml/min
[2022-09-15] MEDS: BACLOFEN 10 MG TAB PO SCH (08:45)
[2022-09-15] MEDS: carvediloL 12.5 MG TAB PO SCH ×2 (08:45→17:56)
[2022-09-15] MEDS: ADVANCED PROBIOTIC 1250 MG CAPSULE PO SCH (08:45)
[2022-09-15] MEDS: LANTUS PER UNIT CHARGE SQ SCH ×2 (08:45→21:24)
[2022-09-15] MEDS: PANTOprazole 40 MG TAB PO SCH ×2 (08:46→22:33)
[2022-09-15] MEDS: INSULIN ASPART PER UNIT CHARGE SC SCH ×4 (08:46→21:16)
[2022-09-15] MEDS ORDERED: ENOXAPARIN 100 MG/1ML SYR SQ SCH (12:00)
[2022-09-15] MEDS: MAGNESIUM OXIDE 400 MG TAB PO SCH ×2 (12:09→22:33)
--- NOTE | 2022-09-15 13:27 | Surgery Progress Note ---
Date of Service September 15, 2022 Assessment & Plan (1) Sacral wound: Plan: Patient is in que for transfer to higher level of care of ID presence and potentially a sacrococcygeal debridement as per medicine and telehealth ID. In the meantime, I would like to gain control of the wound. It is difficult between nursing changes and patient soiling issues. Plan for the OR if cleared by cardiology for debridement, bone biopsy and other option attempts for wound management on a daily basis. Admission and Anticipated Discharge Date Admission Date: August 09, 2022 Subjective Patient alert/awake, unchanged. at bedside. Physical Exam Skin: Patient on his back without offloading to one side or the other. Dressings in place were changed from dressings I placed yesterday. Unfortunately these dressings were wet with minimal gauze, and was soaked through the single ABD that was applied. Consequently there is the development of new slough over the entire wound bed. Results & Data Vital Signs (Past 12 Hours) Vital Signs Temp Pulse Pulse Resp BP Pulse Ox O2 Del Method 09/15/22 12:00 37 C 75 18 131/76 96 Room Air 09/15/22 09:54 Room Air 09/15/22 08:00 36.4 C L 74 18 132/75 99 Room Air 09/15/22 07:37 72 09/15/22 04:00 37.3 C 09/15/22 03:06 85 18 136/74 95 Room Air 09/15/22 02:16 37.7 C H PG Care Time/CCT Total # of Minutes Spent Total Time Spent with Patient: Total time spent is greater than 50% in coordination of care (as documented) at patient's floor/unit and/or counseling patient: Coding Level of Care Code 15992 SUB INP/OBS CARE 06/30MIN Diagnoses Sacral wound S31.000A
--- NOTE | 2022-09-15 13:48 | Cardiology Consultation ---
Date of Consultation September 15, 2022 Assessment & Plan (1) Preoperative cardiovascular examination: (2) Sacral wound: (3) Aortic stenosis: (4) History of CVA (cerebrovascular accident): (5) CAD (coronary artery disease): -Mr Turner has a history of severe early onset, aggressive atherosclerotic vascular disease with coronary heart disease and multiple stroke episodes. -He is felt to have severe aortic stenosis, deemed inoperable due to his multiple comorbidities. -Patient with long hospital stay, recurrent fevers, most recent maximum temperature on 09/15/2022 at 2:16 AM was 37.7 C, despite treatment including IV Zosyn since 09/13/2022. Source felt to be a sacra decubitus ulcer with concerns for osteomyelitis. Blood cultures negative thus far, but did have wound culture yielding Pseudomonas aeruginosa on 09/08/2022. -Patient admitted with a thigh hematoma and severe anemia, is now back on anticoagulation with Lovenox 100 mg subcu every 12 , he has not on his prior to hospital treatment with clopidogrel for which he received treatment given his complex history of coronary vein graft interventions. -The patient has had a progressive decline over the last 2 years. He is somnolent at present, however per his spouse's description, I think this has been his recent baseline mental status, as he even had cognitive impairment noted at the time of his most recent outpatient visit with me about a year ago. Per review of his chart, he had most recently been seen by one of my cardiology colleagues on 08/12/2022 and follow-up of a 30 beat run of wide-complex tachycardia thought to possibly be related to ventricular tachycardia. Telemetry at present reveals sinus rhythm in the 70s without recent arrhythmia for as long as the telemetry data goes back during his hospital stay. -Patient is obviously at high risk for developing cardiac and noncardiac complication with regards to sedation. I am however concerned that if his sacral wound does not improve, he will develop progressive sepsis and he is certainly at risk for endocarditis given his underlying aortic stenosis.His spouse has taken loving care of him at home leading up to this hospital stay and it is clear she is not ready to consider transitioning to a palliative care approach. I do not think further testing from a cardiac perspective would change his degree of risk. I think it is reasonable to proceed with debridement with local anesthetic and minimal sedation which seems to be in keeping with Dr. Lucien Valdez's plan. -Lovenox would likely need to be held for 12 hours prior to any procedure and I think it would be a good idea for anesthesia to be consulted formally in advance of a procedure so they have a chance to meet him and develop a plan. -I have requested a repeat EKG. 55 minutes were spent on direct patient care including performing a history and physical, reviewing the patient's records, coordinating care with other providers, and completing this document. History of Present Illness Attending Physician: Christian Eastman MD History of Present Illness Deja Turner is a 62 year old male seen in cardiology consultation per the request of Dr Eastman for preoperative cardiac evaluation prior to proposed debridement of the sacral wound and biopsy for suspected osteomyelitis. The patient's spouse, Nasreen, is at the bedside. Deja is a longtime patient of mine who I have followed as an outpatient since 2011. He has been hospitalized for 35 days, having been admitted on 08/09/2022. At that time he presented to the emergency department with worsening lethargy from home. He was found to have a profound anemia with hemoglobin of 5.9 g/dl and was diagnosed with a right thigh hematoma. Home medications at the time included full dose anticoagulation with Lovenox 120 mg subcutaneously twice daily for the treatment of recurrent lower extremity DVT despite previous treatment with warfarin and Eliquis. Anemia noted at the time of presentation corrected with transfusion of multiple units of packed red blood cells. Recent issues include fever and sacral decubitus ulcer. I discussed treatment of his wound with Dr. Vaz , and local debridement had been performed yesterday, but she notes multiple setbacks in the healing of the wound, and she feels that additional debridement in the operating room would be ideal. An MRI of the pelvis performed 09/13/2022 revealed a sacral decubitus ulcer with underlying cellulitis and concerning for sacrococcygeal osteomyelitis per the radiology report. Patient denies any subjective cardiac complaints. He is somnolent, not conversant. Opens his eyes to the voice of his spouse. Problem List: Complex early onset aggressive atherosclerotic cardiovascular disease NSTEMI involving the apical anterior LV wall. Status post off pump 3-vessel coronary bypass surgery by Dr. Bermudez on 10-17-06, receiving a DUARTE to LAD, saphenous vein graft to lateral circumflex and saphenous vein graft to posterior descending coronary arteries. Status post PCI to the SVG R PDA graft on 04/17/14 with KILEY Status post PCI to the ostial SVG to RCA graft on 12/04/14 with a DSE for severe in stent restenosis Status post PCI, protected LMCA on 08/13/15 with a bare metal stent Severe aortic valve stenosis not felt to be a candidate for intervention Severe carotid occlusive disease Cerebral vascular disease, multiple prior fenton, bilateral frontal infarctions while on dual antiplatelet therapy with aspirin and clopidogrel prompting initiation of warfarin at that time, recurrent stroke 11/2017 Right lower extremity DVT the femoral vein, diagnosed by duplex, 10/22/2021, unsuccessful breakthrough treatment despite therapeutic warfarin and Eliquis, therefore prescribed on long-term Lovenox Shaggy aorta Hypertension Dyslipdiemia. Type II diabetes mellitus with retinopathy History of great toeulcer/osteomyelitis Allergies Allergy/AdvReac Type Severity Reaction Status Date / Time No Known Allergies Allergy Verified 08/09/22 15:58 Home Medications Medication Instructions Recorded Confirmed Type nitroglycerin 0.4 mg sublingual 0.4 mg sublingual DIRECTED PRN 08/09/19 08/09/22 History tablet Chest Pain baclofen 5 mg tablet 5 mg PO QAM #30 tabs 09/22/20 08/09/22 Rx carvedilol 12.5 mg tablet 12.5 mg PO BID #60 tabs 09/22/20 08/09/22 Rx clopidogrel 75 mg tablet (Plavix) 75 mg PO QAM #30 tabs 09/22/20 08/09/22 Rx insulin glargine 100 unit/mL See Rx Instructions .Route 09/22/20 08/09/22 Rx subcutaneous solution (Lantus .COMPLEX #10 mL U-100 Insulin) insulin aspart U-100 100 unit/mL 10 unit subcut AC 01/11/21 08/09/22 History subcutaneous solution (Novolog U-100 Insulin aspart) tamsulosin 0.4 mg capsule 0.4 mg PO HS 01/11/21 08/09/22 History atorvastatin 80 mg tablet 80 mg PO QPM 05/17/21 08/09/22 History ferrous sulfate 325 mg (65 mg 325 mg PO QAM #30 tabs 01/15/22 08/09/22 Rx iron) tablet,delayed release enoxaparin 120 mg/0.8 mL 120 mg subcut BID 08/09/22 08/09/22 History subcutaneous syringe lisinopril 5 mg tablet 5 mg PO QAM 08/09/22 08/09/22 History L.acidop,casei,lactis,rham-B.lact,yuki 2 cap PO DAILY 30 days #60 caps 09/14/22 Rx 625 mg (10 billion cell) capsule (Advanced Probiotic) acetaminophen 325 mg tablet 650 mg PO QID 7 days #56 tabs 09/14/22 Rx insulin aspart U-100 100 unit/mL 1 unit (0.01 mL) SC ACHS #10 mL 09/14/22 Rx subcutaneous solution (Novolog U-100 Insulin aspart) magnesium oxide 400 mg (241.3 mg 400 mg PO BID@1100,2200 7 days #14 09/14/22 Rx magnesium) tablet tabs pantoprazole 40 mg tablet,delayed 40 mg PO BID 30 days #60 tabs 09/14/22 Rx release Patient History Medical History Aortic valve stenosis BPH with obstruction/lower urinary tract symptoms CAD (coronary artery disease) 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 in the setting of diabetes for which patient initially underwent off pump 3 vessel coronary artery bypass grafting in 2006 with DUARTE to LAD, SVG to circumflex and SVG to PDA Bare metal stent to protected left main coronary artery 08/13/2015 PCI drug-eluting stent to the saphenous vein graft to RPDA 04/17/2014 PCI, drug-eluting stent to the ostial portion of the SVG to RCA 12/04/2014 for severe in stent restenosis Carotid stenosis Diabetic peripheral neuropathy associated with type 2 diabetes mellitus Dyslipidemia H/O deep venous thrombosis Hemiplegia affecting right dominant side History of CVA (cerebrovascular accident) History of pancreatitis HTN (hypertension) Hypomagnesemia Monoplegia affecting right dominant side Obesity Osteomyelitis of great toe of right foot Proliferative diabetic retinopathy Retinal edema Right foot drop Status post administration of all doses of COVID-19 vaccine series Status post cerebrovascular accident Status post myocardial infarction Superior mesenteric artery stenosis Type 2 diabetes mellitus Surgical History Hx of vitrectomy S/P angioplasty with stent S/P CABG x 3 S/P PTCA (percutaneous transluminal coronary angioplasty) Family History Father Heart disease Social History Smoking Status: Former smoker Tobacco Type: Cigarettes Second Hand Exposure: No; Do You Dip or Chew Tobacco: No; Tobacco Cessation Education Requested by Patient: No Hx Alcohol Use: No Hx Substance Use: No Preferred Language: Yi Communication Ability: Impaired Communication Ability Comment: Intermittent Confusion and history of CVA. Visual Impairment: No Limitations Hearing Ability: Normal Network Operations Lead Required: No Beliefs That Will Affect Care: None marital status: Current Living Situation: Spouse Current Living Situation Comment: Lives with in a split level home but he is in basement current occupational status: disabled Other Information That Helps Us Care for You: No Feels Safe at Home: Yes Safety Concerns: Feels Safe At This Time Assistive Devices: Hospital Bed Review of Systems Review of Systems: Unobtainable due to reduced consciousness Physical Exam Constitutional: + ill appearing (Frail) Respiratory: normal respiratory effort, lungs clear to auscultation Cardiovascular: Rate/Rhythm: regular rate and regular rhythm Heart Sounds: + murmur (3/6 systolic murmur) Extremities: + edema Gastrointestinal (Abdomen): normal bowel sounds, soft, nontender, no hepatosplenomegaly Musculoskeletal: Muscle wasting of the lower extremities Neurologic: Somnolent Results & Data Vital Signs (Past 12 Hours) Vital Signs Temp Pulse Pulse Resp BP Pulse Ox O2 Del Method 09/15/22 12:00 37 C 75 18 131/76 96 Room Air 09/15/22 09:54 Room Air 09/15/22 08:00 36.4 C L 74 18 132/75 99 Room Air 09/15/22 07:37 72 09/15/22 04:00 37.3 C 09/15/22 03:06 85 18 136/74 95 Room Air 09/15/22 02:16 37.7 C H Diagnostic Findings EKG performed 08/12/2022 at 1729 and interpreted independently: Normal sinus rhythm 82 bpm, age-indeterminate anterior infarct pattern with poor R wave progression in the anterior precordial leads, age-indeterminate inferior infarct pattern. Summary of echocardiogram performed 08/10/2022: Severe concentric left ventricular hypertrophy present There is apical wall hypokinesis, LVEF mildly reduced at 40-45% Moderate left atrial dilatation Severe calcific aortic stenosis Severe mitral annular calcification Moderate mitral regurgitation Mild to moderate tricuspid regurgitation The aortic root is noted to have sclerosis/calcification -Compared to the previous study performed 01/12/2021, ongoing severe aortic stenosis noted, there had been an interval decline however the ejection fraction which was 65-70% at the time of the January, study.
--- NOTE | 2022-09-15 15:10 | Hospitalist Progress Note ---
Date of Service September 15, 2022 Assessment & Plan (1) Hematoma of right thigh: Plan: per previous hospitalist notes with addendum: Acute blood loss anemia, likely secondary to right thigh hematoma and left arm hematoma spontaneous, in the setting of Lovenox and Plavix use History of Recurrent DVT, and CVA Plan: Patient presenting from home with reported increased lethargy, taking Lovenox 120mg BID and Plavix As an outpatient, patient has been noted to have a downtrending hemoglobin (11.5 --> 8.0 --> 9.1 --> 8.9 on 07/27). Patient was started on iron replacement. 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 Colonoscopy was considered however patient was felt to not likely be able to tolerate the prep. In the ED, Hgb 5.9. Patient hemodynamically stable. CT abdomen and pelvis showed large hematoma in the upper thigh. Venous duplex of left arm showed large complex left axillary collection typical of hematoma Patient was transfused 4 unit of packed RBC; hemoglobin improved to 9-10 The management of hematoma was done conservatively. No surgical intervention was performed; general surgery were consulted on admission. Patient was restarted on Lovenox as recommended by hematology. Patient's anti- Xa level was checked after he was placed on Lovenox 80 mg twice daily; level was found to be subtherapeutic. He was then placed on Lovenox 100 mg twice daily; repeating TXA level was within therapeutic range. On the request of patient's regarding work-up for anemia; GI was informed and patient was planned for colonoscopy as inpatient on 08/19. However, further discussion with the ; she did not want patient to undergo colonoscopy preparation as she feels he is not at his baseline functional status and wants to do as outpatient. 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 Discussion was done with infectious disease; recommended surgery given persistent fever. Discussion was done with general surgery; patient to undergo debridement in OR along with wound VAC placement and bone biopsy on September 16. Also recommended to transfer to tertiary care center. Discussion was done with [facility] [place]; patient to be transferred for sacrococcygeal debridement. He is currently on Zosyn Lovenox on hold Cardiology consulted for preop evaluation. Left sided pleural effusion, resolved on room air likely from multiple blood transfusions, IV abx Resolved with Lasix Elevated troponin: CAD (coronary artery disease): Plan: Likely due to demand ischemia in the setting of profound anemia Continue beta-josé and statin. Plavix was also restarted. Troponin flat, 1100, 1300, 1000 EKG: No signs of acute ischemia or infarct Echo 45 to 45%, mild apical wall hypokinesis Cardiology service consulted-no Had episode of nonsustained V. tach 9 beats-no recurrence Continue carvedilol Type 2 diabetes mellitus: Plan: Hgb A1c 5.2 06/2022 NovoLog per protocol Monitor BSG's closely History of CVA (cerebrovascular accident): Plan: History of recurrent CVA despite DAPT and anticoagulation therapy Chronic right hemiplegia/left arm paralysis/mostly nonverbal/expressive aphasia management of Lovenox + PLavix per above. - Also on a statin. H/O deep venous thrombosis: Plan: History of breakthrough DVT while on warfarin and Eliquis therapy, now on therapeutic dose Lovenox per above HTN (hypertension): Plan: Currently on Coreg. Lisinopril presently on hold. BP stable overall DVT prophylaxis: Plan: on Lovenox BID per above Disposition lives with at home Dispositionaccepted at [facility] [place]; transfer when bed available. Time spent evaluating patient, direct bedside care, chart review, placing orders, interpretation of diagnostic studies, discussion with consultants, patient, and family members, as well as other required patient management activities is 120 minutes Admission and Anticipated Discharge Date Admission Date: August 09, 2022 Subjective Patient seen and examined at bedside. He is awake; is able to track. He does not appear in any discomfort. Review of Systems Review of Systems: All systems reviewed & are unremarkable except as noted in Subjective Physical Exam Physical Exam: General- not in distress,breathing with no effort or accessory muscle use Eyes- anicteric Neck- no JVD Lungs- clear breath sounds bilaterally no rales/wheezing Heart- normal rate, regular rhythm; no murmurs Abdomen- normal bowel sounds, nondistended, soft, nontender Extremities- no pretibial edema, no calf tenderness Neuro-no new neurologic deficits Skin- warm & dry Results & Data Results & Data Vital Signs (Past 12 Hours) Vital Signs Temp Pulse Pulse Resp BP Pulse Ox O2 Del Method 09/15/22 12:00 37 C 75 18 131/76 96 Room Air 09/15/22 09:54 Room Air 09/15/22 08:00 36.4 C L 74 18 132/75 99 Room Air 09/15/22 07:37 72 09/15/22 04:00 37.3 C 09/15/22 03:06 85 18 136/74 95 Room Air Laboratory Results Laboratory Results WBC 8.07 K/ul (4.8-10.8) 09/14/22 07:21 RBC 4.28 M/uL (4.70-6.10) L 09/14/22 07:21 Hgb 10.9 g/dl (14.0-18.0) L 09/14/22 07:21 Hct 35.0 % (42.0-52.0) L 09/14/22 07:21 MCV 81.8 fL (80.0-100.0) 09/14/22 07:21 MCH 25.5 pg (25.0-34.0) 09/14/22 07:21 MCHC 31.1 g/dL (32.0-36.0) L 09/14/22 07:21 RDW Std Deviation 53.9 fL (36.4-46.3) H 09/14/22 07:21 RDW Coeff of Caroline 18.2 % (11.5-14.5) H 09/14/22 07:21 Plt Count 299 K/uL (130-400) 09/14/22 07:21 MPV 10.5 fL (9.4-12.4) 09/14/22 07:21 Immature Gran % (Auto) 0.4 % 09/14/22 07:21 Neut % (Auto) 69.5 % 09/14/22 07:21 Lymph % (Auto) 21.3 % 09/14/22 07:21 [place] % (Auto) 6.2 % 09/14/22 07:21 Eos % (Auto) 2.1 % 09/14/22 07:21 Baso % (Auto) 0.5 % 09/14/22 07:21 Neut # (Auto) 5.61 K/uL (1.40-6.50) 09/14/22 07:21 Lymph # (Auto) 1.72 K/uL (1.2-3.4) 09/14/22 07:21 [place] # (Auto) 0.50 K/uL (0.11-0.59) 09/14/22 07:21 Eos # (Auto) 0.17 K/uL (0-0.50) 09/14/22 07:21 Baso # (Auto) 0.04 K/uL (0-0.2) 09/14/22 07:21 Immature Gran # (Auto) 0.03 K/uL (0.01-0.20) 09/14/22 07:21 Absolute Nucleated RBC Cancelled 08/17/22 07:00 Nucleated RBC % (auto) Cancelled 08/17/22 07:00 Neutrophils % (Manual) Cancelled 08/17/22 07:00 Band Neutrophils % Cancelled 08/17/22 07:00 Lymphocytes % (Manual) Cancelled 08/17/22 07:00 Prolymphocyte % Cancelled 08/17/22 07:00 Reactive Lymphs % (Man) Cancelled 08/17/22 07:00 Monocytes % (Manual) Cancelled 08/17/22 07:00 Eosinophils % (Manual) Cancelled 08/17/22 07:00 Basophils % (Manual) Cancelled 08/17/22 07:00 Metamyelocytes % (Man) Cancelled 08/17/22 07:00 Myelocytes % (Man) Cancelled 08/17/22 07:00 Promyelocytes % (Man) Cancelled 08/17/22 07:00 Blast Cells % (Manual) Cancelled 08/17/22 07:00 Plasma Cell % (Manual) Cancelled 08/17/22 07:00 Other Cells % Cancelled 08/17/22 07:00 Nucleated RBC % Cancelled 08/17/22 07:00 Neutrophils # (Manual) Cancelled 08/17/22 07:00 Band Neutrophils # Cancelled 08/17/22 07:00 Total Absolute Neuts Cancelled 08/17/22 07:00 Lymphocytes # (Manual) Cancelled 08/17/22 07:00 Prolymphocyte # Cancelled 08/17/22 07:00 Reactive Lymphs # Cancelled 08/17/22 07:00 Total Abs Lymphocytes Cancelled 08/17/22 07:00 Monocytes # (Manual) Cancelled 08/17/22 07:00 Eosinophils # (Manual) Cancelled 08/17/22 07:00 Basophils # (Manual) Cancelled 08/17/22 07:00 Metamyelocytes # (Man) Cancelled 08/17/22 07:00 Myelocytes # (Manual) Cancelled 08/17/22 07:00 Promyelocytes # (Man) Cancelled 08/17/22 07:00 Blast Cells # (Man) Cancelled 08/17/22 07:00 Plasma Cell # (Manual) Cancelled 08/17/22 07:00 Other Cells # Cancelled 08/17/22 07:00 Nucleated RBCs # (Man) Cancelled 08/17/22 07:00 Hypersegmented Neuts Cancelled 08/17/22 07:00 Hyposegmented Neuts Cancelled 08/17/22 07:00 Hypogranular Neuts Cancelled 08/17/22 07:00 Large Granular Lymphs Cancelled 08/17/22 07:00 # Lrg Granular Lymphs Cancelled 08/17/22 07:00 Hairy Cells Cancelled 08/17/22 07:00 Smudge Cells Cancelled 08/17/22 07:00 Toxic Granulation Cancelled 08/17/22 07:00 Toxic Vacuolation Cancelled 08/17/22 07:00 Dohle Bodies Cancelled 08/17/22 07:00 Esau Rods Cancelled 08/17/22 07:00 Platelet Estimate Cancelled 08/17/22 07:00 Hypogranular Platelets Cancelled 08/17/22 07:00 Giant Platelets Cancelled 08/17/22 07:00 Platelet Satelliting Cancelled 08/17/22 07:00 RBC Morphology Unremarkable 08/22/22 05:43 Polychromasia 1+ 08/21/22 05:58 Hypochromasia Cancelled 08/17/22 07:00 Poikilocytosis Cancelled 08/17/22 07:00 Basophilic Stippling Cancelled 08/17/22 07:00 Anisocytosis Present 08/25/22 04:38 Microcytosis Cancelled 08/17/22 07:00 Macrocytosis Cancelled 08/17/22 07:00 Spherocytes 1+ 08/18/22 06:09 Pappenheimer Bodies Cancelled 08/17/22 07:00 Sickle Cells Cancelled 08/17/22 07:00 Target Cells Cancelled 08/17/22 07:00 Tear Drop Cells Cancelled 08/17/22 07:00 Ovalocytes 1+ 08/25/22 04:38 Stomatocytes Cancelled 08/17/22 07:00 Webster-Saltaire Bodies Cancelled 08/17/22 07:00 Echinocytes 1+ 08/25/22 04:38 Acanthocytes (Spur) Cancelled 08/17/22 07:00 Rouleaux Cancelled 08/17/22 07:00 RBC Agglutinates Cancelled 08/17/22 07:00 Schistocytes Cancelled 08/17/22 07:00 ESR 90 mm/hr (0-20) H 09/15/22 11:00 Sezary Cell Cancelled 08/17/22 07:00 PT 13.0 Seconds (9.0-12.0) H 08/09/22 15:05 INR 1.2 (0.9-1.1) H 08/09/22 15:05 APTT 33.1 Seconds (21.0-31.0) H 08/09/22 15:05 PTT Ratio 1.2 08/09/22 15:05 Heparin Anti-Xa, LM Wt 1.34 IU/ML (< 0.10) 09/13/22 17:06 Sodium 141 mmol/L (136-145) 09/15/22 07:09 Potassium 4.0 mmol/L (3.5-5.1) 09/15/22 07:09 Chloride 107 mmol/L (98-107) 09/15/22 07:09 Carbon Dioxide 29 mmol/L (21-32) 09/15/22 07:09 Anion Gap 5 (3-11) 09/15/22 07:09 BUN 27 mg/dl (6-23) H 09/15/22 07:09 Creatinine 0.43 mg/dl (0.6-1.4) L 09/15/22 07:09 Est Cr Clr Drug Dosing 169.6 ml/min 09/15/22 07:09 Est GFR ( Amer) 141.2 ml/min 09/15/22 07:09 Est GFR (Non-Af Amer) 121.9 ml/min 09/15/22 07:09 BUN/Creatinine Ratio 62.8 (10-20) H 09/15/22 07:09 Glucose 171 mg/dl (70-99(Fasting)) H 09/15/22 07:09 POC Glucose 144 mg/dl (70-99) H 09/15/22 11:51 Lactate 1.5 mmol/L (0.4-2.0) 08/09/22 15:05 Calcium 8.6 mg/dl (8.6-10.3) 09/15/22 07:09 Phosphorus 3.4 mg/dl (2.5-4.9) 09/03/22 07:09 Magnesium 1.6 mg/dl (1.7-2.4) L 09/14/22 07:21 Iron 34 mcg/dl (35-175) L 08/13/22 06:01 TIBC 184 mcg/dl (250-450) L 08/13/22 06:01 Unsaturated IBC 150 mcg/dl (155-355) L 08/13/22 06:01 Transferrin 161 mg/dl (200-360) L 08/10/22 12:50 Transferrin % Sat 18 % (20-50) L 08/13/22 06:01 Ferritin 256.6 ng/ml (8-388) 08/10/22 12:50 Total Bilirubin 0.3 mg/dl (0.2-1.0) 09/13/22 06:47 Direct Bilirubin 0.0 mg/dl (0-0.2) 09/13/22 06:47 AST 14 U/L (13-39) 09/13/22 06:47 ALT 17 U/L (7-52) 09/13/22 06:47 Alkaline Phosphatase 93 U/L (34-104) 09/13/22 06:47 Ammonia 25.0 umol/L (18-72) 08/09/22 15:05 Total Creatine Kinase 31 U/L (30-223) 09/09/22 11:36 Troponin I High Sens 1008.3 pg/ml (0-20) H* D 08/10/22 07:31 C-Reactive Protein 3.23 mg/dl (0-0.5) H 09/15/22 11:00 Total Protein 6.3 gm/dl (6.0-8.3) 09/13/22 06:47 Albumin 2.8 gm/dl (3.4-5.0) L 09/13/22 06:47 Globulin 3.0 gm/dl (2.5-4.0) 08/25/22 04:38 Albumin/Globulin Ratio 0.8 (0.9-2) L 08/25/22 04:38 Vitamin B12 436 pg/ml (180-914) 08/10/22 12:50 Procalcitonin 0.05 ng/ml (0-0.5) 08/22/22 09:49 TSH 2.154 uIu/ml (0.300-4.500) 08/13/22 18:24 Urine Color Yellow 09/13/22 10:50 Urine Appearance Clear (Clear) 09/13/22 10:50 Urine pH 5.0 (4.5-7.5) 09/13/22 10:50 Ur Specific [place] 1.020 (1.000-1.030) 09/13/22 10:50 Urine Protein 1+ (Negative) H 09/13/22 10:50 Urine Glucose (UA) Negative (Negative) 09/13/22 10:50 Urine Ketones Negative (Negative) 09/13/22 10:50 Urine Blood Negative (Negative) 09/13/22 10:50 Urine Nitrite Negative (Negative) 09/13/22 10:50 Urine Bilirubin Negative (Negative) 09/13/22 10:50 Urine Urobilinogen Negative (Negative) 09/13/22 10:50 Ur Leukocyte Esterase Negative (Negative) 09/13/22 10:50 Urine WBC (Auto) 10-30 /hpf (0-5) H 08/23/22 13:25 Urine RBC (Auto) 5-10 /hpf (0-4) H 08/23/22 13:25 U Hyaline Cast (Auto) 5-10 /lpf (0-5) H 08/23/22 13:25 U Epithel Cells (Auto) 0-5 /lpf (0-5) 08/23/22 13:25 Urine Bacteria (Auto) Negative (Negative) 08/23/22 13:25 Urine RBC 0-4 /hpf (0-4) 09/13/22 10:50 Urine WBC 0-5 /hpf (0-5) 09/13/22 10:50 Ur Epithelial Cells 0-5 /lpf (0-5) 09/13/22 10:50 Ur Renal Epithelial Cell Not Reportable 08/09/22 15:50 Urine Bacteria 2+ (Negative) H 09/13/22 10:50 Urine Mucus Present (None Prsent) A 09/13/22 10:50 Urine Yeast Not Reportable 08/11/22 00:41 Nasal Screen MRSA (PCR) Negative (Negative) 09/11/22 23:45 Stool Occult Bld Scrn Negative (Negative) 08/14/22 11:16 Vancomycin Trough 12.7 mcg/ml (10-20) 08/25/22 04:38 SARS-CoV-2 (PCR) NEGATIVE (Negative) 08/09/22 16:00 Influenza Type A (PCR) Negative (Neg) 08/09/22 16:00 Influenza Type B (PCR) Negative (Neg) 08/09/22 16:00 RSV (RT-PCR) Negative (Neg) 08/09/22 16:00 Blood Parasites ID Cancelled 08/17/22 07:00 Blood Type A Positive 08/09/22 15:09 Antibody Screen NEGATIVE 08/09/22 15:09 Crossmatch See Detail 08/09/22 15:[address] 08/09/22 12:34 CT SCAN OF THE BRAIN WITHOUT IV CONTRAST CLINICAL HISTORY: Lethargy. COMPARISON STUDY: CT of the brain dated 08/20/2021. TECHNIQUE: Unenhanced axial CT scan of the brain is performed from the vertex to the skull base. A dose lowering technique was utilized adhering to the principles of ALARA. CT DOSE: 614.27 mGy.cm FINDINGS: Brain parenchyma: There is age-advanced involutional change noting advanced confluent subcortical and periventricular microangiopathic disease. There is no hemorrhage, mass effect, or evidence of acute territorial ischemia by CT criteria. A small chronic infarct is noted in the high right parietal lobe. Rose-white matter differentiation is preserved. No extra-axial fluid collection is seen. Ventricles, sulci, cisterns: Prominent secondary to involutional change. Intracranial vasculature: There is atherosclerotic calcification of the cavernous carotid and vertebral arteries. Calvarium: Unremarkable. Sinuses and mastoids: The visualized paranasal sinuses are clear. The mastoid air cells are well pneumatized. Orbits: The bony orbits are grossly intact. IMPRESSION: There is no hemorrhage, mass effect, or evidence of acute territorial ischemia by CT criteria. ACT 112: Negative or not required by law. Electronically signed by: Donny Fernando M.D. 08/09/2022 3:38 PM Abdomen/Pelvis CT 08/10/22 00:22 CR Exam(s): CT ABDOMEN + PELVIS Without Contrast EXAM: CT Abdomen and Pelvis Without Intravenous Contrast CLINICAL HISTORY: Reason for exam: anemia. any bleeding?. TECHNIQUE: Axial computed tomography images of the abdomen and pelvis without intravenous contrast. CTDI is 16.7 mGy and DLP is 945.35 mGy-cm. Automated exposure control was utilized for the study. A dose lowering technique was utilized adhering to the principles of ALARA. COMPARISON: CT Abdomen Pelvis dated 03/18/2020 FINDINGS: Artifacts: Artifact in the upper abdomen from patient's arms. Lung bases: See below. Pleural space: Small bilateral pleural effusions greater on the left. Mild bibasilar atelectasis. Heart: Marked coronary artery calcifications. ABDOMEN: Liver: Unremarkable. Gallbladder and bile ducts: Unremarkable. No calcified stones. No ductal dilation. Pancreas: Unremarkable. No ductal dilation. Spleen: Unremarkable. No splenomegaly. Adrenals: Nodular adrenal glands, similar to the prior. Kidneys and ureters: Left renal low-density lesion better seen on the prior. No obstructing stones. No hydronephrosis. Stomach and bowel: Large amount of stool within distended rectum. No mucosal thickening. No bowel obstruction. PELVIS: Appendix: No findings to suggest acute appendicitis. Bladder: Bladder wall thickening of partially distended bladder. No stones. Reproductive: Unremarkable as visualized. ABDOMEN and PELVIS: Intraperitoneal space: See above. Bones/joints: Median sternotomy wires. Minimal sclerosis of the left inferior pubic ramus, new since the prior. Soft tissues: Enlarged right abductor musculature which appears hyperdense. Partially visualized on the inferior most images. Approximately 5 cm in transverse dimension. Dystrophic soft tissue calcifications/heterotopic ossification bilaterally in the musculature between the inferior pubic rami and proximal femurs. Chronic appearance although new since the prior study. Partially visualized. Anasarca. Soft tissue calcifications noted in the left forearm soft tissues, partially visualized. Vasculature: Marked diffuse atherosclerotic calcifications. Lymph nodes: Unremarkable. No enlarged lymph nodes. Tubes, lines and devices: Right this catheter with the tip in the right common iliac vein. IMPRESSION: 1. Enlarged right abductor musculature which appears hyperdense. Partially visualized on the inferior most images. Likely represents hematoma, approximately 5 cm in transverse dimension. Active bleeding or underlying lesion not excluded. 2. Large amount of stool within distended rectum. 3. Bladder wall thickening of partially distended bladder. May reflect cystitis or chronic bladder obstruction. 4. Dystrophic soft tissue calcifications/heterotopic ossification bilaterally in the musculature between the inferior pubic rami and proximal femurs. Chronic appearance although new since the prior study. Partially visualized. 5. Minimal sclerosis of the left inferior pubic ramus, new since the prior. Nonspecific. Correlate for infectious/inflammatory or neoplastic process. 6. Anasarca. 7. Small bilateral pleural effusions greater on the left. Mild bibasilar atelectasis. Communications: Verify Receipt Call Doctor Above results Electronically signed by: Thiago Wheeler M.D. 08/10/22 02:28 AM Lower Extremity CTA 08/10/22 02:42 Exam(s): CTA EXTREMITY RIGHT LOWER W/WO Contrast IV Amt: 105 ml optiray 320 EXAM: CT Angiography of the Right Lower Extremity With Intravenous Contrast CLINICAL HISTORY: Reason for exam: right thigh hematoma. active bleeding?. TECHNIQUE: Axial computed tomographic angiography images of the right lower extremity with intravenous contrast. CTDI is 49.29 mGy and DLP is 1250.2 mGy-cm. Automated exposure control was utilized for the study. A dose lowering technique was utilized adhering to the principles of ALARA. MIP reconstructed images were created and reviewed. CONTRAST: Patient received 105 ml optiray 320 of IV contrast COMPARISON: None. FINDINGS: VASCULATURE: Aorta: Severe calcified atherosclerotic disease tibioperoneal trunk. There is calcified atherosclerotic disease of aorta with no aneurysm. Right iliac arteries: Mild calcified atherosclerotic disease throughout the right external iliac artery with no significant stenosis. Right femoral/popliteal arteries: Scattered calcified atherosclerotic disease throughout the right superficial femoral artery, more severe distally. Cannot exclude areas of moderate to high-grade stenosis involving the distal superficial femoral artery. Severe atherosclerotic disease of the popliteal artery with areas of moderate to high-grade stenosis. Right calf/foot arteries: Severe disease through the right anterior tibial artery with multiple areas of high-grade stenosis in a short segment occlusions. Severe disease through the posterior tibial artery with multiple areas of high-grade stenosis and short segment occlusion. Distal reconstitution at the ankle noted. Moderate disease through the peroneal artery seen as a continuous vessel to the ankle. LOWER EXTREMITY: Bones/joints: There is a right-sided femoral line in place. Soft tissues: There is a large hematoma involving the medial aspect of the upper thigh measuring approximately 5.5 x 6.5 cm in axial dimension. Questionable heterogeneous density surrounding the right femur are concerning for second hematoma and measuring 5.7 x 5.5 cm in axial dimension. There is no evidence of active bleed. Bladder: Intrapelvic structures revealed borderline thickening of urinary bladder wall, cannot exclude cystitis. IMPRESSION: 1. Hematoma involving the medial and upper aspect of the right thigh and surrounding the mid cephalad femur. No evidence of active bleed. 2. Severe atherosclerotic disease involving the right lower extremity more significant through the distal superficial femoral and popliteal artery with areas of high-grade stenosis distally. 3. Severe disease through the trifurcation vessels with single vessel runoff through the peroneal artery. Multiple areas of high-grade stenosis or occlusions with the anterior tibial artery and posterior tibial artery as described. Electronically signed by: Merline Macias MD 08/10/22 05:30 AM Extremity Venous Study 08/18/22 12:04 ULTRASOUND LEFT UPPER EXTREMITY VENOUS CLINICAL HISTORY: Left arm pain and swelling. COMPARISON STUDY: Left upper extremity venous ultrasound dated 06/03/2022. CT of the left humerus dated 08/10/2022. TECHNIQUE: Real-time, grayscale, and color Doppler sonography of the deep veins of the left upper extremity is performed. Compression and augmentation were utilized. FINDINGS: There is no sonographic evidence of deep venous thrombosis identified in the left upper extremity. The left internal jugular, axillary, and brachial veins are patent and normally compressible. Normal venous waveforms and augmentation are seen within the left subclavian vein. The cephalic and basilic veins are clear. The visualized radial and ulnar veins are patent. There is a large complex nonvascular fluid collection in the left axilla. This measures approximate 7 x 4 x 7 cm. Soft tissue edema seen in the left upper extremity. IMPRESSION: 1. There is no sonographic evidence of deep venous thrombosis identified in the left upper extremity. 2. There is a large complex left axillary fluid collection, which is typical for a hematoma. Clinical correlation will be required. ACT 112: Negative or not required by law. Electronically signed by: Donny Fernando M.D. 08/18/2022 2:[address] 08/22/22 09:36 CT femur RT w con HISTORY: Rule out abscess formation in hematoma. Fever TECHNIQUE: Multiaxial CT images of the right femur were performed following the intravenous administration of 94 cc of Optiray 350. Sagittal and coronal reformations were also obtained. COMPARISON STUDY: Right femur CT 08/13/2022. FINDINGS: Diffuse subcutaneous edema noted within the right leg. There is a Hagan catheter within the bladder. Large amount of stool within the distal rectum which appears mildly thickened for the degree of distention. This could represent a developing stercoral colitis. No acute fracture or dislocation within the right femur. Heterotopic ossification posterior to the proximal right femur again noted. There are multiloculated mixed density intramuscular collections within the right adductor, vastus intermedialis, and within the distal vastus medialis muscles. These are similar in size compared to the prior study but demonstrate decreasing density suggestive of organizing hematomas. There is a lobular peripheral enhancement surrounding these collections within the abductor muscles and vastus intermedius muscle. This is nonspecific but co uld be due to active arterial extravasation or reactive change from the posttraumatic change. Superimposed infection would be difficult to exclude but considered less likely given the lack of soft tissue gas within these collections. And advanced vascular calcifications are again noted. Dominant collection within the vastus intermedius muscle measures approximately 17 x 6 x 6 cm. IMPRESSION: 1. There again noted multiloculated mixed density intramuscular collections within the right thigh as described above. These are similar in size compared to the prior study but demonstrate decreasing density suggestive of organizing hematomas. Secondary infection would be impossible to exclude by imaging but is considered less likely given the lack of soft tissue gas 2. Lobular peripheral enhancement within these collections which is indeterminate but could be due to active arterial extravasation or reactive change from the hematomas. Of note, this patient was injected twice with intravenous contrast for this study which likely accounts for the peripheral enhancement. 3. Diffuse soft tissue edema within the right leg. 4. Mild thickening of the rectum which contains a large amount well-formed stool. This could represent a developing stercoral colitis ACT 112: Negative or not required by law. Electronically signed by: Chris Bowens M.D. 08/22/2022 1:[address] 08/25/22 13:43 CT OF THE CHEST WITHOUT IV CONTRAST CLINICAL HISTORY: Evaluate for pleural effusion, pneumonia. COMPARISON STUDY: Chest radiograph August 22, [address] November 17, 2017. Left shoulder CT August 22, 2022. CT DOSE: 879.86 mGy.cm TECHNIQUE: Axial images of the chest were obtained without IV contrast. Images were reviewed in the axial, sagittal, and coronal planes. IV contrast was not administered for this examination. Automated exposure control was utilized for the study. A dose lowering technique was utilized adhering to the principles of ALARA. FINDINGS: This exam is compromised by motion artifact. Several thyroid nodules are incidentally noted. There are median sternotomy wires and postoperative findings from bypass grafting. Mild cardiomegaly is noted. There is no pericardial effusion. Small to moderate left and small right pleural effusions are present. There is no pneumothorax. Subpleural left lower lobe opacity favors atelectasis. No definite consolidation to suggest pneumonia. No acute fractures within the bony thorax are noted. A subacute fracture of the posterior left glenoid is noted. This was shown on prior CT. Note is again made of intramuscular fluid collections within the left shoulder, as shown on prior CT. These have slightly decreased in size. These contain areas of increased attenuation and favor resolving hematomas. 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 These findings are not acute. Body wall edema is present. IMPRESSION: 1. Small to moderate left and small right pleural effusions. Associated left lower lobe airspace opacity favors atelectasis. 2. Exam compromised by motion artifact. 3. Intramuscular fluid collections within the left shoulder which favor resolving hematomas. These have slightly decreased in size since CT of August 22, 2022. Redemonstration of a subacute posterior left glenoid fracture. ACT 112: Negative or not required by law. Electronically signed by: Pal Blunt M.D. 08/25/2022 7:[address] 08/31/22 11:[address] DOSE: 2823.32 mGy.cm HISTORY: Left forearm edema TECHNIQUE: Multiaxial CT images of the left forearm were performed and reformatted in the sagittal and coronal plane without the use of contrast. A dose lowering technique was utilized adhering to the principles of ALARA. COMPARISON: Left forearm CT 08/10/2022. FINDINGS: Extensive subcutaneous/soft tissue edema seen throughout the left forearm. No loculated fluid collections identified on this noncontrast study to suggest an abscess. Persistent heterotopic ossification again noted within the elbow and proximal forearm. This remains unchanged. Vascular calcifications are noted. No acute fracture or dislocation within the left forearm. Body wall edema identified within the left abdominal wall. No erosive/destructive changes within the left forearm to suggest an osteomyelitis. IMPRESSION: Extensive subcutaneous/soft tissue edema throughout the left forearm. This is similar to the prior study. ACT 112: Negative or not required by law. Electronically signed by: Chris Bowens M.D. 08/31/2022 2:[address] 08/31/22 11:10 CT SCAN OF THE LEFT SHOULDER WITHOUT IV CONTRAST; CT SCAN OF THE LEFT HUMERUS WITHOUT IV CONTRAST CLINICAL HISTORY: Edema. Known hematoma. COMPARISON STUDY: CT scan of the left shoulder dated 08/22/2022. CT scan of left humerus dated 08/10/2022. TECHNIQUE: CT scan of the left shoulder is performed from the lower neck to the humeral shaft and a CT scan of the left humerus is performed from the shoulder to the elbow. Images for both examinations are reviewed in the axial, sagittal, and coronal planes. IV contrast was not administered for these examinations. A dose lowering technique was utilized adhering to the principles of ALARA. The examinations are degraded by motion artifact. FINDINGS: The skeletal structures are osteopenic. There is unchanged appearance of a subacute/healing fracture of the left posterior glenoid. This is best seen on axial image #110 of the shoulder examination. There are small displaced fragments. No additional acute or healing fracture is seen at the shoulder joint. There is a small joint effusion of the left shoulder with calcific fragments/debris. There is no humeral fracture. No bony erosion or periostitis is identified. Again seen are multiple loculated fluid collections containing hyperdense material within the left latissimus dorsi and left subscapularis muscles. These are unchanged to modestly decreased in size as compared to the 08/22/2022 examination. A collection in the left latissimus dorsi on axial image #51 of 81 and measures approximately 4.5 x 4 cm, and a more inferiorly located collection within the latissimus dorsi on image #62 measures approximately 5 x 3 cm. A component within the subscapularis muscle on image #39 measures approximately 4 x 3.5 cm. There is overlying soft tissue edema. Large foci of heterotopic ossification are again seen on the distal humerus and the proximal forearm. This is greatest anteriorly, subcutaneous edema and fluid seen throughout the left upper extremity. No organized/drainable fluid collection is identified around the left humerus or elbow. There is significant body wall edema identified in the partially imaged left chest wall. There is a [id number] left pleural effusion with left basilar consolidation. The heart is enlarged. No left axillary adenopathy is seen. There is atherosclerotic calcification of the regional arteries. No soft tissue gas is seen throughout the left shoulder or around the humerus. IMPRESSION: 1. There is a subacute/healing fracture of the left glenoid. This is similar to previous. 2. No additional fracture or dislocation is seen at the shoulder joint. 3. There is no evidence of left humeral fracture. 4. Right pleural effusion with right basilar consolidation. 5. Loculated and slightly hyperdense fluid collections within the left latissimus dorsi and subscapularis muscles are unchanged to modestly decreased in size as compared to 08/22/2022. The appearance favors resolving hematomas. The sterility of this fluid cannot be assessed by imaging and clinical correlation will be required. 6. There is significant soft tissue edema throughout the left upper extremity and the partially imaged left chest wall. No additional organized/drainable fluid collection is seen around the humerus in the left upper extremity on this unenhanced examination. 7. Large foci of heterotopic ossification are again seen around the distal humerus and proximal forearm. Clinical correlation will be required. 8. Additional findings as above. ACT 112: Negative or not required by law. Dictated: 08/31/2022 1:36 PM Transcribed: 08/31/2022 2:17 PM Tristian [id number] [email or web address] Electronically signed by: Donny Fernando M.D. 08/31/2022 2:[address] 08/31/22 11:10 CT SCAN OF THE LEFT SHOULDER WITHOUT IV CONTRAST; CT SCAN OF THE LEFT HUMERUS WITHOUT IV CONTRAST CLINICAL HISTORY: Edema. Known hematoma. COMPARISON STUDY: CT scan of the left shoulder dated 08/22/2022. CT scan of left humerus dated 08/10/2022. TECHNIQUE: CT scan of the left shoulder is performed from the lower neck to the humeral shaft and a CT scan of the left humerus is performed from the shoulder to the elbow. Images for both examinations are reviewed in the axial, sagittal, and coronal planes. IV contrast was not administered for these examinations. A dose lowering technique was utilized adhering to the principles of ALARA. The examinations are degraded by motion artifact. FINDINGS: The skeletal structures are osteopenic. There is unchanged appearance of a subacute/healing fracture of the left posterior glenoid. This is best seen on axial image #110 of the shoulder examination. There are small displaced fragments. No additional acute or healing fracture is seen at the shoulder joint. There is a small joint effusion of the left shoulder with calcific fragments/debris. There is no humeral fracture. No bony erosion or periostitis is identified. Again seen are multiple loculated fluid collections containing hyperdense material within the left latissimus dorsi and left subscapularis muscles. These are unchanged to modestly decreased in size as compared to the 08/22/2022 examination. A collection in the left latissimus dorsi on axial image #51 of 81 and measures approximately 4.5 x 4 cm, and a more inferiorly located collection within the latissimus dorsi on image #62 measures approximately 5 x 3 cm. A component within the subscapularis muscle on image #39 measures approximately 4 x 3.5 cm. There is overlying soft tissue edema. Large foci of heterotopic ossification are again seen on the distal humerus and the proximal forearm. This is greatest anteriorly, subcutaneous edema and fluid seen throughout the left upper extremity. No organized/drainable fluid collection is identified around the left humerus or elbow. There is significant body wall edema identified in the partially imaged left chest wall. There is a [id number] left pleural effusion with left basilar consolidation. The heart is enlarged. No left axillary adenopathy is seen. There is atherosclerotic calcification of the regional arteries. No soft tissue gas is seen throughout the left shoulder or around the humerus. IMPRESSION: 1. There is a subacute/healing fracture of the left glenoid. This is similar to previous. 2. No additional fracture or dislocation is seen at the shoulder joint. 3. There is no evidence of left humeral fracture. 4. Right pleural effusion with right basilar consolidation. 5. Loculated and slightly hyperdense fluid collections within the left latissimus dorsi and subscapularis muscles are unchanged to modestly decreased in size as compared to 08/22/2022. The appearance favors resolving hematomas. The sterility of this fluid cannot be assessed by imaging and clinical correlation will be required. 6. There is significant soft tissue edema throughout the left upper extremity and the partially imaged left chest wall. No additional organized/drainable fluid collection is seen around the humerus in the left upper extremity on this unenhanced examination. 7. Large foci of heterotopic ossification are again seen around the distal humerus and proximal forearm. Clinical correlation will be required. 8. Additional findings as above. ACT 112: Negative or not required by law. Dictated: 08/31/2022 1:36 PM Transcribed: 08/31/2022 2:17 PM Tristian [id number] [email or web address] Electronically signed by: Donny Fernando M.D. 08/31/2022 2:22 PM Lumbar Spine MRI 09/11/22 12:03 MRI OF THE LUMBAR SPINE WITHOUT CONTRAST CLINICAL HISTORY: infected sacral decub ulcer, r/o osteomyelitis COMPARISON STUDY: CT of the abdomen and pelvis August 10, 2022. TECHNIQUE: Utilizing a 1.5 Liliana magnet and dedicated coil, multiplanar, multiecho imaging of the lumbar spine was performed without IV contrast. FINDINGS: For purposes of numbering on this exam, the L5-S1 disc space is assigned to axial image 27 of 28. Alignment of the lumbar spine is anatomic. Mild loss of height of the superior endplate of L4 is unchanged since CT of August 10, 2022. This is chronic. There is no marrow edema or marrow replacement. There is no intracanalicular mass or fluid collection. The conus terminates at the mid L1 level. This exam is mildly compromised by motion artifact. The spine is imaged to the level of the sacrococcygeal junction on sagittal sequences. Evaluation is suboptimal given the lack of axial images through the sacrum however there is no MR evidence for acute osteomyelitis within the sacrum. The coccyx is not visualized on this examination. Subcutaneous edema of the lower back is incidentally noted. The sacral decubitus ulcer is not well visualized on this exam. L1-2: The central canal and neural foramen are patent. L2-3: The central canal and neural foramen are patent. L3-4: There is mild facet arthrosis. There is minimal disc bulge. The central canal and neural foramen are patent. L4-5: There is disc bulge with superimposed left paracentral/left foraminal disc protrusion with annular tear. The central canal is patent. There is moderate narrowing of the left lateral recess and left neural foramen. There is mild narrowing of the right neural foramen. L5-S1: Central canal and neural foramen are patent. There is facet arthrosis. IMPRESSION: 1. Suboptimal evaluation of the sacrum, as described above. However, no MR evidence for acute osteomyelitis on this exam. Coccyx not visualized on this exam. If suspicion for coccygeal osteomyelitis, an MRI of the sacrum and coccyx could be obtained. 2. Mild multilevel degenerative changes within the lumbar spine. Paracentral/left foraminal disc protrusion at L4-L5 which results in moderate left lateral recess and left neural foramen. 3. No significant central canal stenosis. ACT 112: Negative or not required by law. Electronically signed by: Pal Blunt M.D. 09/11/2022 3:29 PM Pelvis MRI 09/13/22 08:48 MR pelvis wo con CLINICAL HISTORY: infected sacral decubitus ulcer TECHNIQUE: Multiplanar multisequence images were obtained of the abdomen with and without the administration of contrast. COMPARISON: Comparison is made to CT abdomen pelvis 08/10/2022 FINDINGS: Bladder: Hagan catheter is seen. Reproductive organs: Unremarkable. Vessels: Unremarkable. Abdominal wall: There is a prominent sacral ulcer measuring approximately 5 cm wide and 7 cm in craniocaudal dimension. There is surrounding soft tissue edema. No drainable fluid collection is seen. Bones: There is T2 hyperintensity in the posterior lower sacrum and upper coccyx concerning for osteomyelitis. IMPRESSION: Sacral decubitus ulcer with underlying cellulitis and concern for sacrococcygeal osteomyelitis. No evidence of drainable fluid collection. ACT 112: Negative or not required by law. Electronically signed by: Bradley Reeves M.D. 09/13/2022 2:31 PM Chest X-Ray 09/13/22 08:53 XR chest 1V portable HISTORY: 62 years-old Male ff up pleural effusion follow-up study in a patient with reported pleural effusions COMPARISON: Chest radiograph 09/04/2022, chest CT 08/25/2022. TECHNIQUE: AP view of the chest FINDINGS: Cardiomediastinal and hilar silhouettes are unchanged. Prior median sternotomy with CABG. No pneumothorax, overt pulmonary edema lower airspace consolidation. Unchanged mild blunting the lateral costophrenic angles. Degenerative changes of the shoulders and spine. Unchanged appearance of the right scapula with sclerotic appearance. IMPRESSION: 1. Cardiomegaly without overt pulmonary edema. 2. Probable small pleural effusions again noted. ACT 112: Negative or not required by law. The above report was generated using voice recognition software. It may contain grammatical, syntax or spelling errors. Electronically signed by: Abdon Gr M.D. 09/13/2022 9:22 AM
--- NOTE | 2022-09-15 16:32 | Communication Note ---
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 Compared to the previous tracing performed 08/12/2022, there has been no significant interval change.
[2022-09-15] MEDS: ATORVASTATIN 40 MG TAB PO SCH (22:33)
[2022-09-16] MEDS: PIPERACILLIN/TAZOBACTAM 4.5 GM in DEXTROSE 5% 100 ML IV SCH ×2 (06:01→16:10)
[2022-09-16 06:32] LABS: Hematocrit (blood only) 33.7 % (42.0-52.0); Hemoglobin 10.6 g/dl (14.0-18.0); Mean Corpuscular Hemoglobin 25.3 pg (25.0-34.0); Mean Corpuscular Hgb Conc 31.5 g/dL (32.0-36.0); Mean Corpuscular Volume 80.4 fL (80.0-100.0); Mean Platelet Volume 10.6 fL (9.4-12.4); Platelet Count 331 K/uL (130-400); RDW Standard Deviation 52.8 fL (36.4-46.3); Red Blood Count 4.19 M/uL (4.70-6.10); White Blood Count 7.52 K/ul (4.8-10.8)
[2022-09-16 06:51] LABS: Creatinine Clr Calc Pharmacy 193.9 ml/min; Est GFR (African American) 148.6 ml/min; Est GFR (Non-African American) 128.2 ml/min
[2022-09-16] MEDS: INSULIN ASPART PER UNIT CHARGE SC SCH ×4 (11:09→20:38)
[2022-09-16] MEDS: carvediloL 12.5 MG TAB PO SCH ×2 (11:09→17:41)
[2022-09-16] MEDS: ACETAMINOPHEN 325 MG TAB PO SCH ×4 (11:09→20:19)
[2022-09-16] MEDS: BACLOFEN 10 MG TAB PO SCH (11:09)
[2022-09-16] MEDS: MAGNESIUM OXIDE 400 MG TAB PO SCH ×2 (11:10→20:20)
[2022-09-16] MEDS: LANTUS PER UNIT CHARGE SQ SCH ×2 (11:10→20:38)
[2022-09-16] MEDS: ADVANCED PROBIOTIC 1250 MG CAPSULE PO SCH (11:10)
[2022-09-16] MEDS: PANTOprazole 40 MG TAB PO SCH (11:10)
--- NOTE | 2022-09-16 11:10 | Anesthesiology Consultation ---
Date of Service September 16, 2022 Assessment & Plan Chart Review Chart Review: Acceptable Risk for Surgery and Patient NOT seen in Pre Admission Testing Consults Requested none ASA ASA4 Proposed Anesthesia Anesthesia Type: MAC History Surgery Operation Date: 08/19/22 16:00 Proposed Procedures p Colonoscopy Dr Bonilla - Suni Bonilla DO Operation Date: 09/16/22 09:10 Proposed Procedures p Debridement of Sacral Wound with Bone Biopsy, Wound Vac Placement - Ruth Ann Vaz DO Height/Weight Height: 5 ft 11 in Weight: 69.8 kg Allergies Allergy/AdvReac Type Severity Reaction Status Date / Time No Known Allergies Allergy Verified 08/09/22 15:58 Medications Home Medications Medication Instructions Recorded Confirmed Last Taken nitroglycerin 0.4 mg sublingual 0.4 mg sublingual DIRECTED PRN 08/09/19 08/09/22 12/17/21 08:00 tablet Chest Pain baclofen 5 mg tablet 5 mg PO QAM #30 tabs 09/22/20 08/09/22 12/17/21 08:00 carvedilol 12.5 mg tablet 12.5 mg PO BID #60 tabs 09/22/20 08/09/22 12/17/21 08:00 clopidogrel 75 mg tablet (Plavix) 75 mg PO QAM #30 tabs 09/22/20 08/09/22 12/17/21 08:00 insulin glargine 100 unit/mL See Rx Instructions .Route 09/22/20 08/09/22 12/17/21 08:00 subcutaneous solution (Lantus .COMPLEX #10 mL U-100 Insulin) insulin aspart U-100 100 unit/mL 10 unit subcut AC 01/11/21 08/09/22 12/17/21 12:00 subcutaneous solution (Novolog U-100 Insulin aspart) tamsulosin 0.4 mg capsule 0.4 mg PO HS 01/11/21 08/09/22 12/17/21 08:00 atorvastatin 80 mg tablet 80 mg PO QPM 05/17/21 08/09/22 Unknown ferrous sulfate 325 mg (65 mg 325 mg PO QAM #30 tabs 01/15/22 08/09/22 Unknown iron) tablet,delayed release enoxaparin 120 mg/0.8 mL 120 mg subcut BID 08/09/22 08/09/22 Unknown subcutaneous syringe lisinopril 5 mg tablet 5 mg PO QAM 08/09/22 08/09/22 Unknown L.acidop,casei,lactis,rham-B.lact,yuki 2 cap PO DAILY 30 days #60 caps 09/14/22 Unknown 625 mg (10 billion cell) capsule (Advanced Probiotic) acetaminophen 325 mg tablet 650 mg PO QID 7 days #56 tabs 09/14/22 Unknown insulin aspart U-100 100 unit/mL 1 unit (0.01 mL) SC ACHS #10 mL 09/14/22 Unknown subcutaneous solution (Novolog U-100 Insulin aspart) magnesium oxide 400 mg (241.3 mg 400 mg PO BID@1100,2200 7 days #14 09/14/22 Unknown magnesium) tablet tabs pantoprazole 40 mg tablet,delayed 40 mg PO BID 30 days #60 tabs 09/14/22 Unknown release Active Medications Generic Name Dose Route Start Last Admin Trade Name Freq PRN Reason Stop Dose Admin Acetaminophen 650 mg 09/15/22 02:20 09/16/22 11:09 Acetaminophen 325 Mg Tab PO 10/15/22 02:19 Not Given QID [facility] Atorvastatin Calcium 80 mg 09/09/22 21:00 09/15/22 22:33 Atorvastatin 40 Mg Tab PO 10/09/22 20:59 80 mg QPM SUMA Administration Baclofen 5 mg 09/09/22 09:30 09/16/22 11:09 Baclofen 10 Mg Tab PO 10/09/22 09:29 Not Given DAILY [facility] Carvedilol 12.5 mg 09/09/22 09:55 09/16/22 11:09 Carvedilol 12.5 Mg Tab PO 10/09/22 09:54 Not Given BIDM [facility] Enoxaparin Sodium 100 mg 09/15/22 12:00 09/15/22 12:10 Enoxaparin 100 Mg/1ml Syr SQ 10/15/22 11:59 100 mg Q12H SUMA Administration Piperacillin Sod/Tazobactam 120 mls @ 30 mls/hr 09/13/22 23:15 09/16/22 06:01 Sod 4.5 gm/ Dextrose IV 09/20/22 23:14 30 mls/hr Q8H SUMA Administration Protocol Insulin Aspart 0 units 08/30/22 11:30 09/16/22 11:09 Insulin Aspart Per Unit Charge SC 09/29/22 11:29 Not Given ACHS [facility] Insulin Glargine 16 units 09/15/22 21:00 09/16/22 11:10 Lantus Per Unit Charge SQ 10/12/22 08:59 Not Given BID SUMA Lactobacillus Acidophilus 2 cap 08/29/22 09:00 09/16/22 11:10 Advanced Probiotic 1250 Mg Capsule PO 09/28/22 08:59 Not Given DAILY [facility]MA Magnesium Oxide 400 mg 09/03/22 11:00 09/16/22 11:10 Magnesium Oxide 400 Mg Tab PO 10/03/22 10:59 Not Given BID@1100,2200 SUMA Pantoprazole Sodium 40 mg 08/17/22 21:00 09/16/22 11:10 Pantoprazole 40 Mg Tab PO 09/16/22 20:59 Not Given BID SUMA NPO Date Last Intake of Fluids: 09/15/22 Time Last Intake of Fluids: 18:30 Date Last Intake of Solids: 09/15/22 Time Last Intake of Solids: 18:30 Past Medical History Medical History Aortic valve stenosis BPH with obstruction/lower urinary tract symptoms CAD (coronary artery disease) 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 in the setting of diabetes for which patient initially underwent off pump 3 vessel coronary artery bypass grafting in 2006 with DUARTE to LAD, SVG to circumflex and SVG to PDA Bare metal stent to protected left main coronary artery 08/13/2015 PCI drug-eluting stent to the saphenous vein graft to RPDA 04/17/2014 PCI, drug-eluting stent to the ostial portion of the SVG to RCA 12/04/2014 for severe in stent restenosis Carotid stenosis Diabetic peripheral neuropathy associated with type 2 diabetes mellitus Dyslipidemia H/O deep venous thrombosis Hemiplegia affecting right dominant side History of CVA (cerebrovascular accident) History of pancreatitis HTN (hypertension) Hypomagnesemia Monoplegia affecting right dominant side Obesity Osteomyelitis of [place] toe of right foot Proliferative diabetic retinopathy Retinal edema Right foot drop Status post administration of all doses of COVID-19 vaccine series Status post cerebrovascular accident Status post myocardial infarction Superior mesenteric artery stenosis Type 2 diabetes mellitus Exercise / Class Metabolic Activity IV < 2 Limit ADL/Bedbound Past Family History Family History Father Heart disease Past Surgical History Surgical History Hx of vitrectomy S/P angioplasty with stent S/P CABG x 3 S/P PTCA (percutaneous transluminal coronary angioplasty) Past Anesthesia History No Hx of Anesthesia Complications and No Family Hx of Anesthesia Complications History of PONV No Hx of PONV and No Hx of Motion Sickness Social History Smoking Status: Former smoker tobacco type: cigarettes Do You Dip or Chew Tobacco: No Hx Alcohol Use: No Alcohol type: beer alcohol intake frequency: a few times a month Hx Substance Use: No substance use type: does not use Physical Exam Vital Signs Last Vital Signs Temp 36.9 C 09/16/22 10:52 Pulse 80 09/16/22 10:52 Resp 18 09/16/22 10:52 BP 143/70 H 09/16/22 10:52 Pulse Ox 95 09/16/22 10:52 O2 Del Method Room Air 09/16/22 10:52 O2 Flow Rate 1 08/10/22 20:06 FiO2 21 09/01/22 19:02 Testing Laboratory Results 09/16/22 05:47 09/16/22 05:47 PT 13.0 Seconds (9.0-12.0) H 08/09/22 15:05 INR 1.2 (0.9-1.1) H 08/09/22 15:05 APTT 33.1 Seconds (21.0-31.0) H 08/09/22 15:05 Urine Color Yellow 09/13/22 10:50 Urine Appearance Clear (Clear) 09/13/22 10:50 Urine pH 5.0 (4.5-7.5) 09/13/22 10:50 Ur Specific [place] 1.020 (1.000-1.030) 09/13/22 10:50 Urine Protein 1+ (Negative) H 09/13/22 10:50 Urine Glucose (UA) Negative (Negative) 09/13/22 10:50 Urine Ketones Negative (Negative) 09/13/22 10:50 Urine Nitrite Negative (Negative) 09/13/22 10:50 Ur Leukocyte Esterase Negative (Negative) 09/13/22 10:50 Urine WBC (Auto) 10-30 /hpf (0-5) H 08/23/22 13:25 Urine RBC (Auto) 5-10 /hpf (0-4) H 08/23/22 13:25 U Hyaline Cast (Auto) 5-10 /lpf (0-5) H 08/23/22 13:25 U Epithel Cells (Auto) 0-5 /lpf (0-5) 08/23/22 13:25 Urine Bacteria (Auto) Negative (Negative) 08/23/22 13:25 Urine RBC 0-4 /hpf (0-4) 09/13/22 10:50 Urine WBC 0-5 /hpf (0-5) 09/13/22 10:50 Ur Epithelial Cells 0-5 /lpf (0-5) 09/13/22 10:50 Blood Type A Positive 08/09/22 15:09 Antibody Screen NEGATIVE 08/09/22 15:09 09/13/22 10:50 Urine Culture - Final Urine,Straight Cath No growth - less than 1,000 colonies/mL. 09/09/22 11:46 Aerobic Blood Culture - Final Blood No growth in Aerobic bottle after 5 days. Anaerobic Blood Culture - Final No growth in Anaerobic bottle after 5 days. 09/09/22 11:36 Aerobic Blood Culture - Final Blood No growth in Aerobic bottle after 5 days. Anaerobic Blood Culture - Final No growth in Anaerobic bottle after 5 days. 09/08/22 10:00 Gram Stain - Final Sacrum Wound Culture - Final Pseudomonas aeruginosa 09/05/22 16:25 Aerobic Blood Culture - Final Blood No growth in Aerobic bottle after 5 days. Anaerobic Blood Culture - Final 09/05/22 16:25 Aerobic Blood Culture - Final Blood No growth in Aerobic bottle after 5 days. Anaerobic Blood Culture - Final 08/23/22 12:58 Aerobic Blood Culture - Final Blood No growth in Aerobic bottle after 5 days. Anaerobic Blood Culture - Final No growth in Anaerobic bottle after 5 days. 08/23/22 12:45 Aerobic Blood Culture - Final Blood No growth in Aerobic bottle after 5 days. Anaerobic Blood Culture - Final No growth in Anaerobic bottle after 5 days. 08/22/22 07:39 Aerobic Blood Culture - Final Blood No growth in Aerobic bottle after 5 days. Anaerobic Blood Culture - Final No growth in Anaerobic bottle after 5 days. 08/22/22 07:41 Aerobic Blood Culture - Final Blood No growth in Aerobic bottle after 5 days. Anaerobic Blood Culture - Final No growth in Anaerobic bottle after 5 days. 08/23/22 13:25 Urine Culture - Final Urine,Straight Cath No growth - less than 1,000 colonies/mL. 08/09/22 15:05 Aerobic Blood Culture - Final Blood No growth in Aerobic bottle after 5 days. Anaerobic Blood Culture - Final No growth in Anaerobic bottle after 5 days. 08/09/22 15:05 Aerobic Blood Culture - Final Blood No growth in Aerobic bottle after 5 days. Anaerobic Blood Culture - Final No growth in Anaerobic bottle after 5 days. 08/11/22 00:41 Urine Culture - Final Urine,Indwelling Cath Coag negative Staphylococcus 08/09/22 15:50 Urine Culture - Final Urine,Straight Cath Coag negative Staphylococcus 09/16/22 05:58 POC Glucose 127 H Electrocardiogram Date: 09/15/22 Findings: + NSR @ (@ 74;old septal infarct before 2006;infer. ND age ?) Chest X-Ray Date: 09/13/22 Findings: + cardiomegaly and + pleural effusion (small) Echocardiogram Date: 08/10/22 EF: 40% LV Function: dysfunctional RWMA: + hypokinetic (mild apical wall HK) Other Findings: + atrial enlargement (LA mod. enlarged) and + LVH (severe concentric LVH) Valvular Disease: + (severe calcific AV area 0.58 cm2) and + MR (moderate) Tr- mild- mod. RV sys Fxn nl
--- NOTE | 2022-09-16 11:25 | History & Physical Bridge Note ---
Date of Service September 16, 2022 History & Physical Bridge Note I have examined the patient, reviewed the History & Physical and in the interval since the performance of the History & Physical I have noted the following changes of clinical significance: no changes noted
[2022-09-16] MEDS ORDERED: BUPIVACAINE 0.5 % 5 MG/1 ML MPF 30ML VIAL ONE (11:57)
--- NOTE | 2022-09-16 12:15 | Cardiology Progress Note ---
Date of Service September 16, 2022 Assessment & Plan (1) Preoperative cardiovascular examination: (2) Sacral wound: (3) Aortic stenosis: (4) History of CVA (cerebrovascular accident): (5) CAD (coronary artery disease): Plan: -Mr Turner has a history of severe early onset, aggressive atherosclerotic vascular disease with coronary heart disease and multiple stroke episodes. -He is felt to have severe aortic stenosis, deemed inoperable due to his m ultiple comorbidities. -He is afebrile overnight. As noted, his chronically ill with poor prognosis. Source control felt to be necessary from an infection standpoint. Patient tentatively scheduled for debridement of his sacral wound under local anesthesia, mild conscious sedation today. Patient certainly at high risk for complications from such procedure, but also at high risk for progressive sepsis if wound is not addressed sufficiently, and more conservative measures have been unsuccessful thus far. -Patient for debridement in the operating room later today. Continue chronic cardiac medications including carvedilol, atorvastatin. -Lovenox on hold for procedure, most recent dose administered 09/15/2022 at 12:10 PM Admission and Anticipated Discharge Date Admission Date: August 09, 2022 Subjective Patient seen in cardiology follow-up. He is somnolent. Unable to provide history. This does not seem to be changed compared to his recent mental status. Telemetry reveals sinus rhythm in the 80s. Physical Exam Constitutional: + ill appearing (Frail) Respiratory: normal respiratory effort, lungs clear to auscultation Cardiovascular: Rate/Rhythm: regular rate and regular rhythm Heart Sounds: + murmur (3/6 systolic murmur) Extremities: + edema Gastrointestinal (Abdomen): normal bowel sounds, soft, nontender, no hepatosplenomegaly Results & Data Vital Signs (Past 12 Hours) Vital Signs Temp Pulse Pulse Resp BP BP Pulse Ox 09/16/22 10:52 36.9 C 80 18 143/70 H 95 09/16/22 08:00 78 09/16/22 08:00 09/16/22 07:56 36.4 C L 95 H 18 120/50 L 95 09/16/22 03:10 37.4 C 81 18 136/77 97 O2 Del Method 09/16/22 10:52 Room Air 09/16/22 08:00 09/16/22 08:00 Room Air 09/16/22 07:56 Room Air 09/16/22 03:10 Room Air Laboratory Results Laboratory studies 09/16/2022: Hemoglobin relatively stable at 10.6 Platelet count 331 Creatinine 0.38 Diagnostic Findings EKG performed 09/15/2022 at 1602: Interpreted independently sinus rhythm at 76 bpm, age-indeterminate septal infarct pattern, age-indeterminate inferior infarct pattern, relatively unchanged compared to previous.
[2022-09-16] MEDS ORDERED: ePHEDrine sulfate 50 MG/ML AMP IV PRN (12:24)
[2022-09-16] MEDS ORDERED: ATROPINE SULFATE 0.1 MG/ML 10ML SYR IV PRN (12:24)
--- NOTE | 2022-09-16 12:36 | Hospitalist Progress Note ---
Date of Service September 16, 2022 Assessment & Plan (1) Hematoma of right thigh: Plan: per previous hospitalist notes with addendum: Acute blood loss anemia, likely secondary to right thigh hematoma and left arm hematoma spontaneous, in the setting of Lovenox and Plavix use History of Recurrent DVT, and CVA Plan: Patient presenting from home with reported increased lethargy, taking Lovenox 120mg BID and Plavix As an outpatient, patient has been noted to have a downtrending hemoglobin (11.5 --> 8.0 --> 9.1 --> 8.9 on 07/27). In the ED, Hgb 5.9. Patient hemodynamically stable. CT abdomen and pelvis showed large hematoma in the upper thigh. Venous duplex of left arm showed large complex left axillary collection typical of hematoma Patient was transfused 4 unit of packed RBC; hemoglobin improved to 9-10 The management of hematoma was done conservatively. No surgical intervention was performed; general surgery were consulted on admission. Patient was restarted on Lovenox as recommended by hematology. Patient's anti- Xa level was checked after he was placed on Lovenox 80 mg twice daily; level was found to be subtherapeutic. He was then placed on Lovenox 100 mg twice daily; repeating TXA level was within therapeutic range. On the request of patient's regarding work-up for anemia; GI was informed and patient was planned for colonoscopy as inpatient on 08/19. However, further discussion with the ; she did not want patient to undergo colonoscopy preparation as she feels he is not at his baseline functional status and wants to do as outpatient. 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 Discussion was done with infectious disease; recommended surgery given persistent fever. Discussion was done with general surgery; patient to undergo debridement in OR along with wound VAC placement and bone biopsy on September 16. Also recommended to transfer to tertiary care center. Discussion was done with [facility]; patient to be transferred for sacrococcygeal debridement. He is currently on Zosyn Lovenox on hold Left sided pleural effusion, resolved on room air likely from multiple blood transfusions, IV abx Resolved with Lasix Elevated troponin: CAD (coronary artery disease): Plan: Likely due to demand ischemia in the setting of profound anemia Continue beta-josé and statin. Plavix was also restarted. Troponin flat, 1100, 1300, 1000 EKG: No signs of acute ischemia or infarct Echo 45 to 45%, mild apical wall hypokinesis Cardiology service consulted-no Had episode of nonsustained V. tach 9 beats-no recurrence Continue carvedilol Type 2 diabetes mellitus: Plan: Hgb A1c 5.2 06/2022 NovoLog per protocol Monitor BSG's closely History of CVA (cerebrovascular accident): Plan: History of recurrent CVA despite DAPT and anticoagulation therapy Chronic right hemiplegia/left arm paralysis/mostly nonverbal/expressive aphasia management of Lovenox + PLavix per above. - Also on a statin. H/O deep venous thrombosis: Plan: History of breakthrough DVT while on warfarin and Eliquis therapy, now on therapeutic dose Lovenox per above HTN (hypertension): Plan: Currently on Coreg. Lisinopril presently on hold. BP stable overall DVT prophylaxis: Plan: on Lovenox BID per above Disposition lives with at home Dispositionaccepted at [facility] at [facility]; transfer when bed available. Time spent evaluating patient, direct bedside care, chart review, placing orders, interpretation of diagnostic studies, discussion with consultants, patient, and family members, as well as other required patient management activities is 60 minutes Admission and Anticipated Discharge Date Admission Date: August 09, 2022 Subjective Patient seen and examined at bedside. He is awake and is able to track. He is in room air and hemodynamically stable. He is afebrile in last 24 hours. Review of Systems Review of Systems: All systems reviewed & are unremarkable except as noted in Subjective Physical Exam Physical Exam: General- not in distress,breathing with no effort or accessory muscle use Eyes- anicteric Neck- no JVD Lungs- clear breath sounds bilaterally no rales/wheezing Heart- normal rate, regular rhythm; no murmurs Abdomen- normal bowel sounds, nondistended, soft, nontender Extremities- no pretibial edema, no calf tenderness. Has stage IV sacral ulcer with yellowish slough LUE: moderate edema, tenderness present in dorsal aspect of upper arm. RLE: thigh- mild edema Neuro-no new neurologic deficits Skin- warm & dry Results & Data Results & Data Vital Signs (Past 12 Hours) Vital Signs Temp Pulse Pulse Resp BP BP Pulse Ox 09/16/22 10:52 36.9 C 80 18 143/70 H 95 09/16/22 08:00 78 09/16/22 08:00 09/16/22 07:56 36.4 C L 95 H 18 120/50 L 95 09/16/22 03:10 37.4 C 81 18 136/77 97 O2 Del Method 09/16/22 10:52 Room Air 09/16/22 08:00 09/16/22 08:00 Room Air 09/16/22 07:56 Room Air 09/16/22 03:10 Room Air Laboratory Results Laboratory Results WBC 7.52 K/ul (4.8-10.8) 09/16/22 05:47 RBC 4.19 M/uL (4.70-6.10) L 09/16/22 05:47 Hgb 10.6 g/dl (14.0-18.0) L 09/16/22 05:47 Hct 33.7 % (42.0-52.0) L 09/16/22 05:47 MCV 80.4 fL (80.0-100.0) 09/16/22 05:47 MCH 25.3 pg (25.0-34.0) 09/16/22 05:47 MCHC 31.5 g/dL (32.0-36.0) L 09/16/22 05:47 RDW Std Deviation 52.8 fL (36.4-46.3) H 09/16/22 05:47 RDW Coeff of Caroline 18.0 % (11.5-14.5) H 09/16/22 05:47 Plt Count 331 K/uL (130-400) 09/16/22 05:47 MPV 10.6 fL (9.4-12.4) 09/16/22 05:47 Immature Gran % (Auto) 0.4 % 09/14/22 07:21 Neut % (Auto) 69.5 % 09/14/22 07:21 Lymph % (Auto) 21.3 % 09/14/22 07:21 Stewart % (Auto) 6.2 % 09/14/22 07:21 Eos % (Auto) 2.1 % 09/14/22 07:21 Baso % (Auto) 0.5 % 09/14/22 07:21 Neut # (Auto) 5.61 K/uL (1.40-6.50) 09/14/22 07:21 Lymph # (Auto) 1.72 K/uL (1.2-3.4) 09/14/22 07:21 Stewart # (Auto) 0.50 K/uL (0.11-0.59) 09/14/22 07:21 Eos # (Auto) 0.17 K/uL (0-0.50) 09/14/22 07:21 Baso # (Auto) 0.04 K/uL (0-0.2) 09/14/22 07:21 Immature Gran # (Auto) 0.03 K/uL (0.01-0.20) 09/14/22 07:21 Absolute Nucleated RBC Cancelled 08/17/22 07:00 Nucleated RBC % (auto) Cancelled 08/17/22 07:00 Neutrophils % (Manual) Cancelled 08/17/22 07:00 Band Neutrophils % Cancelled 08/17/22 07:00 Lymphocytes % (Manual) Cancelled 08/17/22 07:00 Prolymphocyte % Cancelled 08/17/22 07:00 Reactive Lymphs % (Man) Cancelled 08/17/22 07:00 Monocytes % (Manual) Cancelled 08/17/22 07:00 Eosinophils % (Manual) Cancelled 08/17/22 07:00 Basophils % (Manual) Cancelled 08/17/22 07:00 Metamyelocytes % (Man) Cancelled 08/17/22 07:00 Myelocytes % (Man) Cancelled 08/17/22 07:00 Promyelocytes % (Man) Cancelled 08/17/22 07:00 Blast Cells % (Manual) Cancelled 08/17/22 07:00 Plasma Cell % (Manual) Cancelled 08/17/22 07:00 Other Cells % Cancelled 08/17/22 07:00 Nucleated RBC % Cancelled 08/17/22 07:00 Neutrophils # (Manual) Cancelled 08/17/22 07:00 Band Neutrophils # Cancelled 08/17/22 07:00 Total Absolute Neuts Cancelled 08/17/22 07:00 Lymphocytes # (Manual) Cancelled 08/17/22 07:00 Prolymphocyte # Cancelled 08/17/22 07:00 Reactive Lymphs # Cancelled 08/17/22 07:00 Total Abs Lymphocytes Cancelled 08/17/22 07:00 Monocytes # (Manual) Cancelled 08/17/22 07:00 Eosinophils # (Manual) Cancelled 08/17/22 07:00 Basophils # (Manual) Cancelled 08/17/22 07:00 Metamyelocytes # (Man) Cancelled 08/17/22 07:00 Myelocytes # (Manual) Cancelled 08/17/22 07:00 Promyelocytes # (Man) Cancelled 08/17/22 07:00 Blast Cells # (Man) Cancelled 08/17/22 07:00 Plasma Cell # (Manual) Cancelled 08/17/22 07:00 Other Cells # Cancelled 08/17/22 07:00 Nucleated RBCs # (Man) Cancelled 08/17/22 07:00 Hypersegmented Neuts Cancelled 08/17/22 07:00 Hyposegmented Neuts Cancelled 08/17/22 07:00 Hypogranular Neuts Cancelled 08/17/22 07:00 Large Granular Lymphs Cancelled 08/17/22 07:00 # Lrg Granular Lymphs Cancelled 08/17/22 07:00 Hairy Cells Cancelled 08/17/22 07:00 Smudge Cells Cancelled 08/17/22 07:00 Toxic Granulation Cancelled 08/17/22 07:00 Toxic Vacuolation Cancelled 08/17/22 07:00 Dohle Bodies Cancelled 08/17/22 07:00 Esau Rods Cancelled 08/17/22 07:00 Platelet Estimate Cancelled 08/17/22 07:00 Hypogranular Platelets Cancelled 08/17/22 07:00 Giant Platelets Cancelled 08/17/22 07:00 Platelet Satelliting Cancelled 08/17/22 07:00 RBC Morphology Unremarkable 08/22/22 05:43 Polychromasia 1+ 08/21/22 05:58 Hypochromasia Cancelled 08/17/22 07:00 Poikilocytosis Cancelled 08/17/22 07:00 Basophilic Stippling Cancelled 08/17/22 07:00 Anisocytosis Present 08/25/22 04:38 Microcytosis Cancelled 08/17/22 07:00 Macrocytosis Cancelled 08/17/22 07:00 Spherocytes 1+ 08/18/22 06:09 Pappenheimer Bodies Cancelled 08/17/22 07:00 Sickle Cells Cancelled 08/17/22 07:00 Target Cells Cancelled 08/17/22 07:00 Tear Drop Cells Cancelled 08/17/22 07:00 Ovalocytes 1+ 08/25/22 04:38 Stomatocytes Cancelled 08/17/22 07:00 [place] Bodies Cancelled 08/17/22 07:00 Echinocytes 1+ 08/25/22 04:38 Acanthocytes (Spur) Cancelled 08/17/22 07:00 Rouleaux Cancelled 08/17/22 07:00 RBC Agglutinates Cancelled 08/17/22 07:00 Schistocytes Cancelled 08/17/22 07:00 ESR 90 mm/hr (0-20) H 09/15/22 11:00 Sezary Cell Cancelled 08/17/22 07:00 PT 13.0 Seconds (9.0-12.0) H 08/09/22 15:05 INR 1.2 (0.9-1.1) H 08/09/22 15:05 APTT 33.1 Seconds (21.0-31.0) H 08/09/22 15:05 PTT Ratio 1.2 08/09/22 15:05 Heparin Anti-Xa, LM Wt 1.34 IU/ML (< 0.10) 09/13/22 17:06 Sodium 141 mmol/L (136-145) 09/15/22 07:09 Potassium 4.0 mmol/L (3.5-5.1) 09/15/22 07:09 Chloride 107 mmol/L (98-107) 09/15/22 07:09 Carbon Dioxide 29 mmol/L (21-32) 09/15/22 07:09 Anion Gap 5 (3-11) 09/15/22 07:09 BUN 27 mg/dl (6-23) H 09/15/22 07:09 Creatinine 0.38 mg/dl (0.6-1.4) L 09/16/22 05:47 Est Cr Clr Drug Dosing 193.9 ml/min 09/16/22 05:47 Est GFR ( Amer) 148.6 ml/min 09/16/22 05:47 Est GFR (Non-Af Amer) 128.2 ml/min 09/16/22 05:47 BUN/Creatinine Ratio 62.8 (10-20) H 09/15/22 07:09 Glucose 171 mg/dl (70-99(Fasting)) H 09/15/22 07:09 POC Glucose 127 mg/dl (70-99) H 09/16/22 05:58 Lactate 1.5 mmol/L (0.4-2.0) 08/09/22 15:05 Calcium 8.6 mg/dl (8.6-10.3) 09/15/22 07:09 Phosphorus 3.4 mg/dl (2.5-4.9) 09/03/22 07:09 Magnesium 1.6 mg/dl (1.7-2.4) L 09/14/22 07:21 Iron 34 mcg/dl (35-175) L 08/13/22 06:01 TIBC 184 mcg/dl (250-450) L 08/13/22 06:01 Unsaturated IBC 150 mcg/dl (155-355) L 08/13/22 06:01 Transferrin 161 mg/dl (200-360) L 08/10/22 12:50 Transferrin % Sat 18 % (20-50) L 08/13/22 06:01 Ferritin 256.6 ng/ml (8-388) 08/10/22 12:50 Total Bilirubin 0.3 mg/dl (0.2-1.0) 09/13/22 06:47 Direct Bilirubin 0.0 mg/dl (0-0.2) 09/13/22 06:47 AST 14 U/L (13-39) 09/13/22 06:47 ALT 17 U/L (7-52) 09/13/22 06:47 Alkaline Phosphatase 93 U/L (34-104) 09/13/22 06:47 Ammonia 25.0 umol/L (18-72) 08/09/22 15:05 Total Creatine Kinase 31 U/L (30-223) 09/09/22 11:36 Troponin I High Sens 1008.3 pg/ml (0-20) H* D 08/10/22 07:31 C-Reactive Protein 3.23 mg/dl (0-0.5) H 09/15/22 11:00 Total Protein 6.3 gm/dl (6.0-8.3) 09/13/22 06:47 Albumin 2.8 gm/dl (3.4-5.0) L 09/13/22 06:47 Globulin 3.0 gm/dl (2.5-4.0) 08/25/22 04:38 Albumin/Globulin Ratio 0.8 (0.9-2) L 08/25/22 04:38 Vitamin B12 436 pg/ml (180-914) 08/10/22 12:50 Procalcitonin 0.05 ng/ml (0-0.5) 08/22/22 09:49 TSH 2.154 uIu/ml (0.300-4.500) 08/13/22 18:24 Urine Color Yellow 09/13/22 10:50 Urine Appearance Clear (Clear) 09/13/22 10:50 Urine pH 5.0 (4.5-7.5) 09/13/22 10:50 Ur Specific [place] 1.020 (1.000-1.030) 09/13/22 10:50 Urine Protein 1+ (Negative) H 09/13/22 10:50 Urine Glucose (UA) Negative (Negative) 09/13/22 10:50 Urine Ketones Negative (Negative) 09/13/22 10:50 Urine Blood Negative (Negative) 09/13/22 10:50 Urine Nitrite Negative (Negative) 09/13/22 10:50 Urine Bilirubin Negative (Negative) 09/13/22 10:50 Urine Urobilinogen Negative (Negative) 09/13/22 10:50 Ur Leukocyte Esterase Negative (Negative) 09/13/22 10:50 Urine WBC (Auto) 10-30 /hpf (0-5) H 08/23/22 13:25 Urine RBC (Auto) 5-10 /hpf (0-4) H 08/23/22 13:25 U Hyaline Cast (Auto) 5-10 /lpf (0-5) H 08/23/22 13:25 U Epithel Cells (Auto) 0-5 /lpf (0-5) 08/23/22 13:25 Urine Bacteria (Auto) Negative (Negative) 08/23/22 13:25 Urine RBC 0-4 /hpf (0-4) 09/13/22 10:50 Urine WBC 0-5 /hpf (0-5) 09/13/22 10:50 Ur Epithelial Cells 0-5 /lpf (0-5) 09/13/22 10:50 Ur Renal Epithelial Cell Not Reportable 08/09/22 15:50 Urine Bacteria 2+ (Negative) H 09/13/22 10:50 Urine Mucus Present (None Prsent) A 09/13/22 10:50 Urine Yeast Not Reportable 08/11/22 00:41 Nasal Screen MRSA (PCR) Negative (Negative) 09/11/22 23:45 Stool Occult Bld Scrn Negative (Negative) 08/14/22 11:16 Vancomycin Trough 12.7 mcg/ml (10-20) 08/25/22 04:38 SARS-CoV-2 (PCR) NEGATIVE (Negative) 08/09/22 16:00 Influenza Type A (PCR) Negative (Neg) 08/09/22 16:00 Influenza Type B (PCR) Negative (Neg) 08/09/22 16:00 RSV (RT-PCR) Negative (Neg) 08/09/22 16:00 Blood Parasites ID Cancelled 08/17/22 07:00 Blood Type A Positive 08/09/22 15:09 Antibody Screen NEGATIVE 08/09/22 15:09 Crossmatch See Detail 08/09/22 15:[address] 08/09/22 12:34 CT SCAN OF THE BRAIN WITHOUT IV CONTRAST CLINICAL HISTORY: Lethargy. COMPARISON STUDY: CT of the brain dated 08/20/2021. TECHNIQUE: Unenhanced axial CT scan of the brain is performed from the vertex to the skull base. A dose lowering technique was utilized adhering to the principles of ALARA. CT DOSE: 614.27 mGy.cm FINDINGS: Brain parenchyma: There is age-advanced involutional change noting advanced confluent subcortical and periventricular microangiopathic disease. There is no hemorrhage, mass effect, or evidence of acute territorial ischemia by CT criteria. A small chronic infarct is noted in the high right parietal lobe. Rose-white matter differentiation is preserved. No extra-axial fluid collection is seen. Ventricles, sulci, cisterns: Prominent secondary to involutional change. Intracranial vasculature: There is atherosclerotic calcification of the cavernous carotid and vertebral arteries. Calvarium: Unremarkable. Sinuses and mastoids: The visualized paranasal sinuses are clear. The mastoid air cells are well pneumatized. Orbits: The bony orbits are grossly intact. IMPRESSION: There is no hemorrhage, mass effect, or evidence of acute territorial ischemia by CT criteria. ACT 112: Negative or not required by law. Electronically signed by: Donny Fernando M.D. 08/09/2022 3:38 PM Abdomen/Pelvis CT 08/10/22 00:22 CR Exam(s): CT ABDOMEN + PELVIS Without Contrast EXAM: CT Abdomen and Pelvis Without Intravenous Contrast CLINICAL HISTORY: Reason for exam: anemia. any bleeding?. TECHNIQUE: Axial computed tomography images of the abdomen and pelvis without intravenous contrast. CTDI is 16.7 mGy and DLP is 945.35 mGy-cm. Automated exposure control was utilized for the study. A dose lowering technique was utilized adhering to the principles of ALARA. COMPARISON: CT Abdomen Pelvis dated 03/18/2020 FINDINGS: Artifacts: Artifact in the upper abdomen from patient's arms. Lung bases: See below. Pleural space: Small bilateral pleural effusions greater on the left. Mild bibasilar atelectasis. Heart: Marked coronary artery calcifications. ABDOMEN: Liver: Unremarkable. Gallbladder and bile ducts: Unremarkable. No calcified stones. No ductal dilation. Pancreas: Unremarkable. No ductal dilation. Spleen: Unremarkable. No splenomegaly. Adrenals: Nodular adrenal glands, similar to the prior. Kidneys and ureters: Left renal low-density lesion better seen on the prior. No obstructing stones. No hydronephrosis. Stomach and bowel: Large amount of stool within distended rectum. No mucosal thickening. No bowel obstruction. PELVIS: Appendix: No findings to suggest acute appendicitis. Bladder: Bladder wall thickening of partially distended bladder. No stones. Reproductive: Unremarkable as visualized. ABDOMEN and PELVIS: Intraperitoneal space: See above. Bones/joints: Median sternotomy wires. Minimal sclerosis of the left inferior pubic ramus, new since the prior. Soft tissues: Enlarged right abductor musculature which appears hyperdense. Partially visualized on the inferior most images. Approximately 5 cm in transverse dimension. Dystrophic soft tissue calcifications/heterotopic ossification bilaterally in the musculature between the inferior pubic rami and proximal femurs. Chronic appearance although new since the prior study. Partially visualized. Anasarca. Soft tissue calcifications noted in the left forearm soft tissues, partially visualized. Vasculature: Marked diffuse atherosclerotic calcifications. Lymph nodes: Unremarkable. No enlarged lymph nodes. Tubes, lines and devices: Right this catheter with the tip in the right common iliac vein. IMPRESSION: 1. Enlarged right abductor musculature which appears hyperdense. Partially visualized on the inferior most images. Likely represents hematoma, approximately 5 cm in transverse dimension. Active bleeding or underlying lesion not excluded. 2. Large amount of stool within distended rectum. 3. Bladder wall thickening of partially distended bladder. May reflect cystitis or chronic bladder obstruction. 4. Dystrophic soft tissue calcifications/heterotopic ossification bilaterally in the musculature between the inferior pubic rami and proximal femurs. Chronic appearance although new since the prior study. Partially visualized. 5. Minimal sclerosis of the left inferior pubic ramus, new since the prior. Nonspecific. Correlate for infectious/inflammatory or neoplastic process. 6. Anasarca. 7. Small bilateral pleural effusions greater on the left. Mild bibasilar atelectasis. Communications: Verify Receipt Call Doctor Above results Electronically signed by: Thiago Wheeler M.D. 08/10/22 02:28 AM Lower Extremity CTA 08/10/22 02:42 Exam(s): CTA EXTREMITY RIGHT LOWER W/WO Contrast IV Amt: 105 ml optiray 320 EXAM: CT Angiography of the Right Lower Extremity With Intravenous Contrast CLINICAL HISTORY: Reason for exam: right thigh hematoma. active bleeding?. TECHNIQUE: Axial computed tomographic angiography images of the right lower extremity with intravenous contrast. CTDI is 49.29 mGy and DLP is 1250.2 mGy-cm. Automated exposure control was utilized for the study. A dose lowering technique was utilized adhering to the principles of ALARA. MIP reconstructed images were created and reviewed. CONTRAST: Patient received 105 ml optiray 320 of IV contrast COMPARISON: None. FINDINGS: VASCULATURE: Aorta: Severe calcified atherosclerotic disease tibioperoneal trunk. There is calcified atherosclerotic disease of aorta with no aneurysm. Right iliac arteries: Mild calcified atherosclerotic disease throughout the right external iliac artery with no significant stenosis. Right femoral/popliteal arteries: Scattered calcified atherosclerotic disease throughout the right superficial femoral artery, more severe distally. Cannot exclude areas of moderate to high-grade stenosis involving the distal superficial femoral artery. Severe atherosclerotic disease of the popliteal artery with areas of moderate to high-grade stenosis. Right calf/foot arteries: Severe disease through the right anterior tibial artery with multiple areas of high-grade stenosis in a short segment occlusions. Severe disease through the posterior tibial artery with multiple areas of high-grade stenosis and short segment occlusion. Distal reconstitution at the ankle noted. Moderate disease through the peroneal artery seen as a continuous vessel to the ankle. LOWER EXTREMITY: Bones/joints: There is a right-sided femoral line in place. Soft tissues: There is a large hematoma involving the medial aspect of the upper thigh measuring approximately 5.5 x 6.5 cm in axial dimension. Questionable heterogeneous density surrounding the right femur are concerning for second hematoma and measuring 5.7 x 5.5 cm in axial dimension. There is no evidence of active bleed. Bladder: Intrapelvic structures revealed borderline thickening of urinary bladder wall, cannot exclude cystitis. IMPRESSION: 1. Hematoma involving the medial and upper aspect of the right thigh and surrounding the mid cephalad femur. No evidence of active bleed. 2. Severe atherosclerotic disease involving the right lower extremity more significant through the distal superficial femoral and popliteal artery with areas of high-grade stenosis distally. 3. Severe disease through the trifurcation vessels with single vessel runoff through the peroneal artery. Multiple areas of high-grade stenosis or occlusions with the anterior tibial artery and posterior tibial artery as described. Electronically signed by: Merline Macias MD 08/10/22 05:30 AM Extremity Venous Study 08/18/22 12:04 ULTRASOUND LEFT UPPER EXTREMITY VENOUS CLINICAL HISTORY: Left arm pain and swelling. COMPARISON STUDY: Left upper extremity venous ultrasound dated 06/03/2022. CT of the left humerus dated 08/10/2022. TECHNIQUE: Real-time, grayscale, and color Doppler sonography of the deep veins of the left upper extremity is performed. Compression and augmentation were utilized. FINDINGS: There is no sonographic evidence of deep venous thrombosis identified in the left upper extremity. The left internal jugular, axillary, and brachial veins are patent and normally compressible. Normal venous waveforms and augmentation are seen within the left subclavian vein. The cephalic and basilic veins are clear. The visualized radial and ulnar veins are patent. There is a large complex nonvascular fluid collection in the left axilla. This measures approximate 7 x 4 x 7 cm. Soft tissue edema seen in the left upper extremity. IMPRESSION: 1. There is no sonographic evidence of deep venous thrombosis identified in the left upper extremity. 2. There is a large complex left axillary fluid collection, which is typical for a hematoma. Clinical correlation will be required. ACT 112: Negative or not required by law. Electronically signed by: Donny Fernando M.D. 08/18/2022 2:[address] 08/22/22 09:36 CT femur RT w con HISTORY: Rule out abscess formation in hematoma. Fever TECHNIQUE: Multiaxial CT images of the right femur were performed following the intravenous administration of 94 cc of Optiray 350. Sagittal and coronal reformations were also obtained. COMPARISON STUDY: Right femur CT 08/13/2022. FINDINGS: Diffuse subcutaneous edema noted within the right leg. There is a Hagan catheter within the bladder. Large amount of stool within the distal rectum which appears mildly thickened for the degree of distention. This could represent a developing stercoral colitis. No acute fracture or dislocation within the right femur. Heterotopic ossification posterior to the proximal right femur again noted. There are multiloculated mixed density intramuscular collec tions within the right adductor, vastus intermedialis, and within the distal vastus medialis muscles. These are similar in size compared to the prior study but demonstrate decreasing density suggestive of organizing hematomas. There is a lobular peripheral enhancement surrounding these collections within the abductor muscles and vastus intermedius muscle. This is nonspecific but could be due to active arterial extravasation or reactive change from the posttraumatic change. Superimposed infection would be difficult to exclude but considered less likely given the lack of soft tissue gas within these collections. And advanced vascular calcifications are again noted. Dominant collection within the vastus intermedius muscle measures approximately 17 x 6 x 6 cm. IMPRESSION: 1. There again noted multiloculated mixed density intramuscular collections within the right thigh as described above. These are similar in size compared to the prior study but demonstrate decreasing density suggestive of organizing hematomas. Secondary infection would be impossible to exclude by imaging but is considered less likely given the lack of soft tissue gas 2. Lobular peripheral enhancement within these collections which is indeterminate but could be due to active arterial extravasation or reactive change from the hematomas. Of note, this patient was injected twice with intravenous contrast for this study which likely accounts for the peripheral enhancement. 3. Diffuse soft tissue edema within the right leg. 4. Mild thickening of the rectum which contains a large amount well-formed stool. This could represent a developing stercoral colitis ACT 112: Negative or not required by law. Electronically signed by: Chris Bowens M.D. 08/22/2022 1:[address] 08/25/22 13:43 CT OF THE CHEST WITHOUT IV CONTRAST CLINICAL HISTORY: Evaluate for pleural effusion, pneumonia. COMPARISON STUDY: Chest radiograph August 22, [address] November 17, 2017. Left shoulder CT August 22, 2022. CT DOSE: 879.86 mGy.cm TECHNIQUE: Axial images of the chest were obtained without IV contrast. Images were reviewed in the axial, sagittal, and coronal planes. IV contrast was not administered for this examination. Automated exposure control was utilized for the study. A dose lowering technique was utilized adhering to the principles of ALARA. FINDINGS: This exam is compromised by motion artifact. Several thyroid nodules are incidentally noted. There are median sternotomy wires and postoperative findings from bypass grafting. Mild cardiomegaly is noted. There is no pericardial effusion. Small to moderate left and small right pleural effusions are present. There is no pneumothorax. Subpleural left lower lobe opacity favors atelectasis. No definite consolidation to suggest pneumonia. No acute fractures within the bony thorax are noted. A subacute fracture of the posterior left glenoid is noted. This was shown on prior CT. Note is again made of intramuscular fluid collections within the left shoulder, as shown on prior CT. These have slightly decreased in size. These contain areas of increased attenuation and favor resolving hematomas. 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 These findings are not acute. Body wall edema is present. IMPRESSION: 1. Small to moderate left and small right pleural effusions. Associated left lower lobe airspace opacity favors atelectasis. 2. Exam compromised by motion artifact. 3. Intramuscular fluid collections within the left shoulder which favor resolving hematomas. These have slightly decreased in size since CT of August 22, 2022. Redemonstration of a subacute posterior left glenoid fracture. ACT 112: Negative or not required by law. Electronically signed by: Pal Blunt M.D. 08/25/2022 7:[address] 08/31/22 11:[address] DOSE: 2823.32 mGy.cm HISTORY: Left forearm edema TECHNIQUE: Multiaxial CT images of the left forearm were performed and reformatted in the sagittal and coronal plane without the use of contrast. A dose lowering technique was utilized adhering to the principles of ALARA. COMPARISON: Left forearm CT 08/10/2022. FINDINGS: Extensive subcutaneous/soft tissue edema seen throughout the left forearm. No loculated fluid collections identified on this noncontrast study to suggest an abscess. Persistent heterotopic ossification again noted within the elbow and proximal forearm. This remains unchanged. Vascular calcifications are noted. No acute fracture or dislocation within the left forearm. Body wall edema identified within the left abdominal wall. No erosive/destructive changes within the left forearm to suggest an osteomyelitis. IMPRESSION: Extensive subcutaneous/soft tissue edema throughout the left forearm. This is similar to the prior study. ACT 112: Negative or not required by law. Electronically signed by: Chris Bowens M.D. 08/31/2022 2:[address] 08/31/22 11:10 CT SCAN OF THE LEFT SHOULDER WITHOUT IV CONTRAST; CT SCAN OF THE LEFT HUMERUS WITHOUT IV CONTRAST CLINICAL HISTORY: Edema. Known hematoma. COMPARISON STUDY: CT scan of the left shoulder dated 08/22/2022. CT scan of left humerus dated 08/10/2022. TECHNIQUE: CT scan of the left shoulder is performed from the lower neck to the humeral shaft and a CT scan of the left humerus is performed from the shoulder to the elbow. Images for both examinations are reviewed in the axial, sagittal, and coronal planes. IV contrast was not administered for these examinations. A dose lowering technique was utilized adhering to the principles of ALARA. The examinations are degraded by motion artifact. FINDINGS: The skeletal structures are osteopenic. There is unchanged appearance of a subacute/healing fracture of the left posterior glenoid. This is best seen on axial image #110 of the shoulder examination. There are small displaced fragments. No additional acute or healing fracture is seen at the shoulder joint. There is a small joint effusion of the left shoulder with calcific fragments/debris. There is no humeral fracture. No bony erosion or periostitis is identified. Again seen are multiple loculated fluid collections containing hyperdense material within the left latissimus dorsi and left subscapularis muscles. These are unchanged to modestly decreased in size as compared to the 08/22/2022 examination. A collection in the left latissimus dorsi on axial image #51 of 81 and measures approximately 4.5 x 4 cm, and a more inferiorly located collection within the latissimus dorsi on image #62 measures approximately 5 x 3 cm. A component within the subscapularis muscle on image #39 measures approximately 4 x 3.5 cm. There is overlying soft tissue edema. Large foci of heterotopic ossification are again seen on the distal humerus and the proximal forearm. This is greatest anteriorly, subcutaneous edema and fluid seen throughout the left upper extremity. No organized/drainable fluid collection is identified around the left humerus or elbow. There is significant body wall edema identified in the partially imaged left chest wall. There is a gifjw-[id number]-[id number] left pleural effusion with left basilar consolidation. The heart is enlarged. No left axillary adenopathy is seen. There is atherosclerotic calcification of the regional arteries. No soft tissue gas is seen throughout the left shoulder or around the humerus. IMPRESSION: 1. There is a subacute/healing fracture of the left glenoid. This is similar to previous. 2. No additional fracture or dislocation is seen at the shoulder joint. 3. There is no evidence of left humeral fracture. 4. Right pleural effusion with right basilar consolidation. 5. Loculated and slightly hyperdense fluid collections within the left latissimus dorsi and subscapularis muscles are unchanged to modestly decreased in size as compared to 08/22/2022. The appearance favors resolving hematomas. The sterility of this fluid cannot be assessed by imaging and clinical correlation will be required. 6. There is significant soft tissue edema throughout the left upper extremity and the partially imaged left chest wall. No additional organized/drainable fluid collection is seen around the humerus in the left upper extremity on this unenhanced examination. 7. Large foci of heterotopic ossification are again seen around the distal humerus and proximal forearm. Clinical correlation will be required. 8. Additional findings as above. ACT 112: Negative or not required by law. Dictated: 08/31/2022 1:36 PM Transcribed: 08/31/2022 2:17 PM [facility] [id number] [email or web address] Electronically signed by: Donny Fernando M.D. 08/31/2022 2:[address] 08/31/22 11:10 CT SCAN OF THE LEFT SHOULDER WITHOUT IV CONTRAST; CT SCAN OF THE LEFT HUMERUS WITHOUT IV CONTRAST CLINICAL HISTORY: Edema. Known hematoma. COMPARISON STUDY: CT scan of the left shoulder dated 08/22/2022. CT scan of left humerus dated 08/10/2022. TECHNIQUE: CT scan of the left shoulder is performed from the lower neck to the humeral shaft and a CT scan of the left humerus is performed from the shoulder to the elbow. Images for both examinations are reviewed in the axial, sagittal, and coronal planes. IV contrast was not administered for these examinations. A dose lowering technique was utilized adhering to the principles of ALARA. The examinations are degraded by motion artifact. FINDINGS: The skeletal structures are osteopenic. There is unchanged appearance of a subacute/healing fracture of the left posterior glenoid. This is best seen on axial image #110 of the shoulder examination. There are small displaced fragments. No additional acute or healing fracture is seen at the shoulder joint. There is a small joint effusion of the left shoulder with calcific fragments/debris. There is no humeral fracture. No bony erosion or periostitis is identified. Again seen are multiple loculated fluid collections containing hyperdense material within the left latissimus dorsi and left subscapularis muscles. These are unchanged to modestly decreased in size as compared to the 08/22/2022 examination. A collection in the left latissimus dorsi on axial image #51 of 81 and measures approximately 4.5 x 4 cm, and a more inferiorly located collection within the latissimus dorsi on image #62 measures approximately 5 x 3 cm. A component within the subscapularis muscle on image #39 measures approximately 4 x 3.5 cm. There is overlying soft tissue edema. Large foci of heterotopic ossification are again seen on the distal humerus and the proximal forearm. This is greatest anteriorly, subcutaneous edema and fluid seen throughout the left upper extremity. No organized/drainable fluid collection is identified around the left humerus or elbow. There is significant body wall edema identified in the partially imaged left chest wall. There is a rlneu-zp-chowlfon left pleural effusion with left basilar consolidation. The heart is enlarged. No left axillary adenopathy is seen. There is atherosclerotic calcification of the regional arteries. No soft tissue gas is seen throughout the left shoulder or around the humerus. IMPRESSION: 1. There is a subacute/healing fracture of the left glenoid. This is similar to previous. 2. No additional fracture or dislocation is seen at the shoulder joint. 3. There is no evidence of left humeral fracture. 4. Right pleural effusion with right basilar consolidation. 5. Loculated and slightly hyperdense fluid collections within the left latissimus dorsi and subscapularis muscles are unchanged to modestly decreased in size as compared to 08/22/2022. The appearance favors resolving hematomas. The sterility of this fluid cannot be assessed by imaging and clinical correlation will be required. 6. There is significant soft tissue edema throughout the left upper extremity and the partially imaged left chest wall. No additional organized/drainable fluid collection is seen around the humerus in the left upper extremity on this unenhanced examination. 7. Large foci of heterotopic ossification are again seen around the distal humerus and proximal forearm. Clinical correlation will be required. 8. Additional findings as above. ACT 112: Negative or not required by law. Dictated: 08/31/2022 1:36 PM Transcribed: 08/31/2022 2:17 PM [facility] [id number] [email or web address] Electronically signed by: Donny Fernando M.D. 08/31/2022 2:22 PM Lumbar Spine MRI 09/11/22 12:03 MRI OF THE LUMBAR SPINE WITHOUT CONTRAST CLINICAL HISTORY: infected sacral decub ulcer, r/o osteomyelitis COMPARISON STUDY: CT of the abdomen and pelvis August 10, 2022. TECHNIQUE: Utilizing a 1.5 Liliana magnet and dedicated coil, multiplanar, multiecho imaging of the lumbar spine was performed without IV contrast. FINDINGS: For purposes of numbering on this exam, the L5-S1 disc space is assigned to axial image 27 of 28. Alignment of the lumbar spine is anatomic. Mild loss of height of the superior endplate of L4 is unchanged since CT of August 10, 2022. This is chronic. There is no marrow edema or marrow replacement. There is no intracanalicular mass or fluid collection. The conus terminates at the mid L1 level. This exam is mildly compromised by motion artifact. The spine is imaged to the level of the sacrococcygeal junction on sagittal sequences. Evaluation is suboptimal given the lack of axial images through the sacrum however there is no MR evidence for acute osteomyelitis within the sacrum. The coccyx is not visualized on this examination. Subcutaneous edema of the lower back is incidentally noted. The sacral decubitus ulcer is not well visualized on this exam. L1-2: The central canal and neural foramen are patent. L2-3: The central canal and neural foramen are patent. L3-4: There is mild facet arthrosis. There is minimal disc bulge. The central canal and neural foramen are patent. L4-5: There is disc bulge with superimposed left paracentral/left foraminal disc protrusion with annular tear. The central canal is patent. There is moderate narrowing of the left lateral recess and left neural foramen. There is mild narrowing of the right neural foramen. L5-S1: Central canal and neural foramen are patent. There is facet arthrosis. IMPRESSION: 1. Suboptimal evaluation of the sacrum, as described above. However, no MR evidence for acute osteomyelitis on this exam. Coccyx not visualized on this exam. If suspicion for coccygeal osteomyelitis, an MRI of the sacrum and coccyx could be obtained. 2. Mild multilevel degenerative changes within the lumbar spine. Paracentral/left foraminal disc protrusion at L4-L5 which results in moderate left lateral recess and left neural foramen. 3. No significant central canal stenosis. ACT 112: Negative or not required by law. Electronically signed by: Pal Blunt M.D. 09/11/2022 3:29 PM Pelvis MRI 09/13/22 08:48 MR pelvis wo con CLINICAL HISTORY: infected sacral decubitus ulcer TECHNIQUE: Multiplanar multisequence images were obtained of the abdomen with and without the administration of contrast. COMPARISON: Comparison is made to CT abdomen pelvis 08/10/2022 FINDINGS: Bladder: Hagan catheter is seen. Reproductive organs: Unremarkable. Vessels: Unremarkable. Abdominal wall: There is a prominent sacral ulcer measuring approximately 5 cm w josie and 7 cm in craniocaudal dimension. There is surrounding soft tissue edema. No drainable fluid collection is seen. Bones: There is T2 hyperintensity in the posterior lower sacrum and upper coccyx concerning for osteomyelitis. IMPRESSION: Sacral decubitus ulcer with underlying cellulitis and concern for sacrococcygeal osteomyelitis. No evidence of drainable fluid collection. ACT 112: Negative or not required by law. Electronically signed by: Bradley Reeves M.D. 09/13/2022 2:31 PM Chest X-Ray 09/13/22 08:53 XR chest 1V portable HISTORY: 62 years-old Male ff up pleural effusion follow-up study in a patient with reported pleural effusions COMPARISON: Chest radiograph 09/04/2022, chest CT 08/25/2022. TECHNIQUE: AP view of the chest FINDINGS: Cardiomediastinal and hilar silhouettes are unchanged. Prior median sternotomy with CABG. No pneumothorax, overt pulmonary edema lower airspace consolidation. Unchanged mild blunting the lateral costophrenic angles. Degenerative changes of the shoulders and spine. Unchanged appearance of the right scapula with sclerotic appearance. IMPRESSION: 1. Cardiomegaly without overt pulmonary edema. 2. Probable small pleural effusions again noted. ACT 112: Negative or not required by law. The above report was generated using voice recognition software. It may contain grammatical, syntax or spelling errors. Electronically signed by: Abdon Gr M.D. 09/13/2022 9:22 AM
--- NOTE | 2022-09-16 14:15 | Operative Report ---
PG Post Operative Report Pre & Post Diagnosis Operation Date: 09/16/22 09:10 Pre-Op Diagnosis: Sacral wound Post-Op Diagnosis: Sacral wound I identified the patient and participated in the time-out.: Yes Procedure Operation Date: 09/16/22 09:10 Actual Procedures p Debridement of Sacral Wound with Wound Vac Placement(Not Applicable) - Ruth Ann Vaz DO Surgeon Ruth Ann Vaz DO Veter[employer] Concetta Carter Estimated Blood Loss 1 Findings Consistent with Post-Op Diagnosis Sacral wound containing some areas of slough. No new heavy areas of necrosis. Specimens None Anesthesia Type Local Complications None Description of Procedure The patient was brought back to the operating room placed on the operating room table and the left lateral decubitus position with padding around all bony prominences to avoid pressure. He was connected to cardiac and oxygen monitoring with anesthesia present. The area was cleaned with Betadine for prep and draped in typical sterile fashion. Local anesthetic was injected at the wound site and the wound was gently debrided of slough using sharp debridement. A pulse lavage was used to copiously irrigate the wound. There was mild bleeding noted of healthy tissue dissipated on its own without the use of cautery. The area was assessed and there was no bone exposed, the entire sacrum and coccyx was covered with healthy tissue. was also slightly fibrinous and susceptible to bleeding. No bone biopsy was obtained. A wound VAC was applied using a black sponge and a pressure of -125 mmHg. Seal check revealed a good seal. Wound VAC functioning well on patient's transfer to recovery. The patient tolerated the procedure well. The patient was transferred to recovery in stable condition. Wound VAC was still functioning well in recovery. I attest to the content of the Intraoperative Record and any orders documented therein. Any exceptions are noted below.
--- NOTE | 2022-09-16 14:19 | Pharmacy Report ---
Pharmacy Glycemic Short Note 2 - Date of Service September 16, 2022 - Glycemic Short BSG Results (Last 24 hours): 09/15/22 09/15/22 09/16/22 17:00 19:58 05:58 POC Glucose 152 H 130 H 127 H 09/16/22 13:25 POC Glucose 121 H OUTPATIENT ANTIDIABETIC REGIMEN: * Lantus 14 units qAM + 10 units qPM * Novolog 10 units AC * HbA1C = 6.7% (08/21/21) ASSESSMENT: 09/16 * The patient received 64 units of insulin yesterday, of which 36 were basal * Fasting BSG yesterday was 171, Lantus increased to 16 BID to account for this * The patient was NPO since midnight for a sacral wound debridement and wound vac placement today. The patient continues on Zosyn, other stressors stable * Mealtime BSGs yesterday were within goal range, continue current Novolog parameters 09/14 * The patient received 60 units of insulin yesterday, of which 28 were basal * Stressors are stable, including a sacral wound currently on Zosyn * Fasting blood glucose above goal this AM, will trial increasing Lantus based on nighttime BSG * Novolog parameters tightened yesterday as outlined below 09/11: * Mr Turner is a 62 y/o M with a PMH of IDDM who has been hospitalized for about 1 month. * Most recently, the patient's blood sugars are trending upwards. He had been maintained on Lantus 5 units daily + Novolog ~30 units per day. * Yesterday BSGs were [phone] mg/dL. He received 51 units of insulin (19 units of basal and 32 units of bolus). Will resume patient's home Lantus dosing for now and titrate as appropriate. * Novolog weight-based stress of 3 for now due to basal deficiency. Loosen as BSGs trend downwards. PLAN FOR INPATIENT GLYCEMIC CONTROL: * Basal insulin * Lantus 16 units SQ BID * Bolus insulin * NovoLog per scale ACHS or Q6hrs while NPO * Goal Range: Low 110 mg/dL - High 140 mg/dL * Correction Factor: 20 mg/dL/unit * Nutritional / Prandial insulin per carb ratio of 1 unit per 7 grams CHO consumed
--- NOTE | 2022-09-16 14:40 | Anesthesiology Progress Note ---
Date of Service September 16, 2022 Anesthesia Post Procedure Vital Signs Vital Signs: Temp Pulse Pulse Pulse Resp BP BP 09/16/22 14:18 98 H 09/16/22 13:30 36.4 C L 93 H 12 101/55 L 09/16/22 13:20 36.3 C L 94 H 14 132/91 09/16/22 10:52 36.9 C 80 18 143/70 H 09/16/22 08:00 78 09/16/22 08:00 09/16/22 07:56 36.4 C L 95 H 18 120/50 L 09/16/22 03:10 37.4 C 81 18 136/77 09/15/22 22:04 73 09/15/22 21:00 09/15/22 23:05 37.2 C 76 18 143/73 H 09/15/22 19:20 37.4 C 75 18 118/67 09/15/22 16:00 37.2 C 78 18 130/72 09/15/22 15:54 70 Pulse Ox O2 Del Method 09/16/22 14:18 09/16/22 13:30 96 Room Air 09/16/22 13:20 96 Room Air 09/16/22 10:52 95 Room Air 09/16/22 08:00 09/16/22 08:00 Room Air 09/16/22 07:56 95 Room Air 09/16/22 03:10 97 Room Air 09/15/22 22:04 09/15/22 21:00 Room Air 09/15/22 23:05 97 Room Air 09/15/22 19:20 98 Room Air 09/15/22 16:00 99 Room Air 09/15/22 15:54 Pain Intensity Generalized: Pain Intensity: 6 Transfer of Care Handoff Completed per policy Notes Mental Status: alert / awake / arousable Patient Amnestic to Procedure: Yes Nausea / Vomiting: adequately controlled Pain: adequately controlled Airway Patency, RR, SpO2: stable & adequate BP & HR: stable & adequate Hydration State: stable & adequate Anesthetic Complications: no major complications apparent
--- NOTE | 2022-09-16 18:24 | Communication Note ---
Date of Service: September 16, 2022 Current Inpatient Medications Acetaminophen (Acetaminophen 325 Mg Tab) 650 mg PO QID SUMA Stop: 10/15/22 02:19 Last Admin: 09/16/22 17:40 Dose: 650 mg Albuterol (Albut/Ipratrop 3mg/0.5mg Neb 3 Ml Vial) 3 ml NEB QIDR PRN; Protocol PRN Reason: Wheezing Stop: 10/01/22 19:30 Atorvastatin Calcium (Atorvastatin 40 Mg Tab) 80 mg PO QPM SUMA Stop: 10/09/22 20:59 Last Admin: 09/15/22 22:33 Dose: 80 mg Atropine Sulfate (Atropine Sulfate 0.1 Mg/Ml 10ml Syr) 0.5 mg IV Q1M PRN PRN Reason: PACU Use-HR<40 &/or Bradycardi Stop: 09/16/22 20:24 Baclofen (Baclofen 10 Mg Tab) 5 mg PO DAILY SUMA Stop: 10/09/22 09:29 Last Admin: 09/16/22 11:09 Dose: Not Given Carvedilol (Carvedilol 12.5 Mg Tab) 12.5 mg PO BIDM [facility] Stop: 10/09/22 09:54 Last Admin: 09/16/22 17:41 Dose: 12.5 mg Dextrose (Dextrose 50% 50 Ml Syringe) 25 - 50 ml IV UD PRN; Protocol PRN Reason: Hypoglycemia Protocol Stop: 10/11/22 05:29 Enoxaparin Sodium (Enoxaparin 100 Mg/1ml Syr) 100 mg SQ Q12H SUMA Stop: 10/15/22 11:59 Last Admin: 09/15/22 12:10 Dose: 100 mg Glucagon (Glucagon For Inj 1 Mg Vial) 1 mg IM UD PRN; Protocol PRN Reason: Hypoglycemia Protocol Stop: 10/11/22 05:29 Glucose (Glucose 40% Gel 15 Gm Tube) 15 - 30 gm PO UD PRN; Protocol PRN Reason: Hypoglycemia Protocol Stop: 10/11/22 05:29 Glucose (Glucose 10 Tab/Tube) 4 - 8 tab PO UD PRN; Protocol PRN Reason: Hypoglycemia Protocol Stop: 10/11/22 05:29 Piperacillin Sod/Tazobactam (Sod 4.5 gm/ Dextrose) 120 mls @ 30 mls/hr IV Q8H SUMA; Protocol Stop: 09/20/22 23:14 Last Admin: 09/16/22 16:10 Dose: 50 mls/hr Insulin Aspart (Insulin Aspart Per Unit Charge) 0 units SC ACHS [facility] Stop: 09/29/22 11:29 Last Admin: 09/16/22 17:40 Dose: 10 units Insulin Glargine (Lantus Per Unit Charge) 16 units SQ BID [facility] Stop: 10/12/22 08:59 Last Admin: 09/16/22 11:10 Dose: Not Given Lactobacillus Acidophilus (Advanced Probiotic 1250 Mg Capsule) 2 cap PO DAILY [facility] Stop: 09/28/22 08:59 Last Admin: 09/16/22 11:10 Dose: Not Given Magnesium Oxide (Magnesium Oxide 400 Mg Tab) 400 mg PO BID@1100,2200 [facility] Stop: 10/03/22 10:59 Last Admin: 09/16/22 11:10 Dose: Not Given Miscellaneous (Carbohydrates For Hypoglycemia ) 15 - 30 gm PO UD PRN PRN Reason: Hypoglycemia Treatment Stop: 10/11/22 05:29 Miscellaneous Information (Pharmacy Glycemic Mgmt Consult) 1 each N/A UD PRN; Protocol PRN Reason: Consult Stop: 10/10/22 18:08 Pantoprazole Sodium (Pantoprazole 40 Mg Tab) 40 mg PO BID [facility] Stop: 09/16/22 20:59 Last Admin: 09/16/22 11:10 Dose: Not Givene
[2022-09-16] MEDS: ATORVASTATIN 40 MG TAB PO SCH (20:19)
--- NOTE | 2022-09-17 06:00 | Electrocardiogram Report ---
Test Reason : Blood Pressure : / mmHG Vent. Rate : 076 BPM Atrial Rate : 076 BPM P-R Int : 146 ms QRS Dur : 096 ms QT Int : 388 ms P-R-T Axes : 048 044 128 degrees QTc Int : 436 ms Normal sinus rhythm Septal infarct (cited on or before 13-OCT-2006) Inferior infarct , age undetermined T wave abnormality, consider lateral ischemia Abnormal ECG When compared with ECG of 12-AUG-2022 17:29, Inferior infarct is now Present Questionable change in initial forces of Anteroseptal leads Confirmed by Jose Raul Parker ([id number]) on 09/17/2022 6:00:11 AM Referred By: REFERRED SELF Confirmed By:Jose Raul Parker
--- NOTE | 2022-09-17 12:29 | Discharge Summary ---
Date of Service September 16, 2022 Admission HPI Per Admitting Provider 62-year-old male with PMH CAD, recurrent CVA while receiving ASA and clopidogrel prompting initiation of warfarin, breakthrough DVT on warfarin and Eliquis currently anticoagulated with therapeutic dose Lovenox, carotid artery disease, DM type II, dyslipidemia, borderline severe aortic valve stenosis, bedbound status, and other problems listed below who presents to the ED for evaluation of lethargy. History obtained from patient's due to patient's mostly nonverbal status and review of inpatient records as well as outpatient review of PCP and cardiology notes. states that on Tuesday she noted her to be more lethargic than normal. She checked his blood sugar and found it to be in the 50s. She called EMS. While waiting for EMS to arrive, she gave the patient some icing and reports improvement in blood sugar. Patient was not brought to the ED. Today, patient again appeared to be lethargic. Per recommendations of PCP, he was referred to the ED for further evaluation. As an outpatient, patient has been having a downtrending hemoglobin with low iron levels. Patient started on iron replacement. Fecal occult blood testing as an outpatient was negative. denies noticing any bright red bleeding per rectum or dark tarry stools. No reported vomiting. Stools are chronically soft however no diarrhea. notes no changes in urinary habits. No fever. In the ED, Hgb is 5.9, troponin 1100. EKG is abnormal showing deep T wave inversion in the lateral leads however similar in appearance to EKG from 08/2021. Patient was given IVF, Protonix bolus, magnesium replacement, and typed and crossed for 2 units of blood. Admission Exam Per Admitting Provider Constitutional: WD/WN, vitals as above no acute distress Eyes: PERRL, conjunctivae normal, anicteric sclerae ENMT: external ear and nose normal, oropharynx normal Respiratory: normal respiratory effort, lungs clear to auscultation Cardiovascular: Rate/Rhythm: regular rate and regular rhythm Vessels: normal peripheral pulses Extremities: no edema Gastrointestinal (Abdomen): normal bowel sounds, soft, nontender, no hepatosplenomegaly Skin: no rashes, warm and dry Neurologic: Speech / Cognition: + abnormal speech (Mostly nonverbal) and + expressive aphasia Right-sided and left arm paralysis due to previous CVAs Psychiatric: Orientation: alert and oriented to person Principal Diagnosis Acute blood loss anemia, likely secondary to right thigh hematoma and left arm hematoma spontaneous, in the setting of Lovenox and Plavix use History of Recurrent DVT, and CVA Fever likely secondary to Sacral Decub Ulcer Infection Sacral decubitus ulcer, stage II; POA Discharge Exam General- not in distress,breathing with no effort or accessory muscle use Eyes- anicteric Neck- no JVD Lungs- clear breath sounds bilaterally no rales/wheezing Heart- normal rate, regular rhythm; no murmurs Abdomen- normal bowel sounds, nondistended, soft, nontender Extremities- no pretibial edema, no calf tenderness. Has stage IV sacral ulcer with yellowish slough LUE: moderate edema, tenderness present in dorsal aspect of upper arm. RLE: thigh- mild edema Neuro-no new neurologic deficits Skin- warm & dry Discharge Data Allergies Allergy/AdvReac Type Severity Reaction Status Date / Time No Known Allergies Allergy Verified 08/09/22 15:58 Consultations 08/09/22 20:06 Consult Gastroenterology Routine 08/10/22 07:49 Consult Hematology Routine 08/10/22 08:48 Consult General Surgery Routine 08/13/22 11:02 Consult Infectious Diseases Routine 08/19/22 11:27 Consult General Surgery Routine 08/23/22 16:58 Consult Infectious Diseases Routine 09/13/22 08:48 Consult Infectious Diseases Routine 09/15/22 11:18 Consult Cardiology Routine Procedures Performed Operation Date: 09/16/22 09:10 Actual Procedures p Debridement of Sacral Wound with Wound Vac Placement(Not Applicable) - Ruth Ann Vaz DO Ordered Studies 08/09/22 12:34 CT head/brain wo con Stat 08/10/22 00:22 CT Abd and Pelvis [CT abd pelvis wo con] Urgent 08/10/22 02:42 CTA LE RT w and wo if don [CT angio LE RT w inc wo if don] Stat 08/10/22 09:47 CT arm [CT forearm LT wo con] Urgent CT arm [CT humerus LT wo con] Urgent 08/13/22 07:35 CT femur RT wo con Stat 08/18/22 12:04 US venous doppler UE LT Routine 08/22/22 09:36 CT femur RT w con Routine 08/22/22 09:37 CT shoulder LT w con Routine 08/25/22 13:43 CT chest diagnostic wo con Urgent 08/31/22 11:10 CT forearm LT wo con Routine CT humerus LT wo con Routine CT shoulder LT wo con Routine 09/11/22 12:03 MRI Lumbar Spine [MR lumbar spine wo con] Routine 09/13/22 08:48 MR pelvis wo con Routine Hospital Course (1) Hematoma of right thigh: Acute blood loss anemia, likely secondary to right thigh hematoma and left arm hematoma spontaneous, in the setting of Lovenox and Plavix use History of Recurrent DVT, and CVA Plan: Patient presenting from home with reported increased lethargy, taking Lovenox 120mg BID and Plavix As an outpatient, patient has been noted to have a downtrending hemoglobin (11.5 --> 8.0 --> 9.1 --> 8.9 on 07/27). In the ED, Hgb 5.9. Patient hemodynamically stable. CT abdomen and pelvis showed large hematoma in the upper thigh. Venous duplex of left arm showed large complex left axillary collection typical of hematoma Patient was transfused 4 unit of packed RBC; hemoglobin improved to 9-10 The management of hematoma was done conservatively. No surgical intervention was performed; general surgery were consulted on admission. Patient was restarted on Lovenox as recommended by hematology. Patient's anti- Xa level was checked after he was placed on Lovenox 80 mg twice daily; level was found to be subtherapeutic. He was then placed on Lovenox 100 mg twice daily; repeating TXA level was within therapeutic range. On the request of patient's regarding work-up for anemia; GI was informed and patient was planned for colonoscopy as inpatient on 08/19. However, further discussion with the ; she did not want patient to undergo colonoscopy preparation as she feels he is not at his baseline functional status and wants to do as outpatient. Fever likely secondary to Sacral Decub Ulcer Infection Sacral decubitus ulcer, stage II; POA Patient started to spike fever intermittently hospitalization. 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 Discussion was done with infectious disease; recommended surgery given persistent fever. Discussion was done with general surgery; patient underwent debridement in OR along with wound VAC placement and bone biopsy on September 16. Also recommended to transfer to tertiary care center. [place] done [place] [facility] [place]; patient to be transferred for sacrococcygeal debridement. Left sided pleural effusion, resolved on room air likely from multiple blood transfusions, IV abx Resolved with Lasix Elevated troponin: CAD (coronary artery disease): Plan: Likely due to demand ischemia in the setting of profound anemia Continue beta-josé and statin. Plavix was also restarted. Troponin flat, 1100, 1300, 1000 EKG: No signs of acute ischemia or infarct Echo 45 to 45%, mild apical wall hypokinesis Cardiology service consulted-no Had episode of nonsustained V. tach 9 beats-no recurrence Continue carvedilol Type 2 diabetes mellitus: Plan: Hgb A1c 5.2 06/2022 NovoLog per protocol Monitor BSG's closely History of CVA (cerebrovascular accident): Plan: History of recurrent CVA despite DAPT and anticoagulation therapy Chronic right hemiplegia/left arm paralysis/mostly nonverbal/expressive aphasia management of Lovenox + PLavix per above. - Also on a statin. H/O deep venous thrombosis: Plan: History of breakthrough DVT while on warfarin and Eliquis therapy, now on therapeutic dose Lovenox per above HTN (hypertension): Plan: Currently on Coreg. Lisinopril presently on hold. BP stable overall DVT prophylaxis: Plan: on Lovenox BID per above Disposition lives with at home Patient was transferred to [facility] as per recommendation by general surgery for further management of sacrococcygeal osteomyelitis. Total Time Total Time Spent Total Time Spent (In Minutes): 45 Total Time Includes: Examination of the Patient, Discharge Planning, Medication Reconciliation, Communication With Other Providers and Other Discharge Plan Discharge Items Patient Disposition: Transfer Acute Care Hospital Reason For Visit: ANEMIA Discharge Diagnosis: Infected sacral decubitus ulcer Sacrococcygeal osteomyelitis Acute blood loss secondary to left thigh hematoma in the setting of Lovenox use Activity: As commented below Activity Comment: Patient is bedbound Non-emergency contact: Primary Care Provider Call non-emergency contact if: you have any medication questions, your symptoms worsen, your pain is not controlled, your pain is worsening, your pain is unusual for you, your pain is concerning for you, you have a fever, your wound has increased redness, your wound has increased drainage and your wound pain has increased Follow-up/Referrals: Shane Gonzalez MD [Primary Care Provider] - Diet: Carb Consistent or DM2 and Heart Healthy Diet Comment: Pured diet, thickened liquids Addtl Attending Provider Instructions: Please refer to accompanying hospital discharge summary Pending Studies at Discharge: Yes Studies:: Please refer to discharge summary Stand-Alone Forms: My [facility] Skilled Items Patient informed of condition?: Yes DNR: No Discharge Level of Care: Other Communicable Disease: No Discharge Prognosis: Stable Lines: Peripheral IV Urinary Catheter: Yes Medications and DC Order Prescriptions: New acetaminophen 325 mg Tablet 650 mg PO QID 7 Days Qty: 56 0RF Advanced Probiotic 625 mg (10 billion cell) Capsule 2 cap PO DAILY 30 Days Qty: 60 0RF magnesium oxide 400 mg (241.3 mg magnesium) Tablet 400 mg PO BID@1100,2200 7 Days Qty: 14 0RF pantoprazole 40 mg Tablet,Delayed Release (Dr/Ec) 40 mg PO BID 30 Days Qty: 60 0RF insulin aspart U-100 [Novolog U-100 Insulin aspart] 100 unit/mL Solution 1 unit SC ACHS Qty: 10 0RF Rx Instructions: Per sliding scale Continued nitroglycerin 0.4 mg tablet, sublingual 0.4 mg sublingual DIRECTED PRN (Reason: Chest Pain) Rx Instructions: PLACE ONE TABLET UNDER THE TONGUE EVERY 5 MINUTES FOR UP TO 3 DOSES OVER 15 MINUTES IF NEEDED FOR CHEST PAIN tamsulosin 0.4 mg capsule 0.4 mg PO HS carvedilol 12.5 mg tablet 12.5 mg PO BID Qty: 60 0RF Rx Instructions: TAKE THIS MEDICATION WITH FOOD clopidogrel [Plavix] 75 mg tablet 75 mg PO QAM Qty: 30 0RF baclofen 5 mg tablet 5 mg PO QAM Qty: 30 0RF atorvastatin 80 mg tablet 80 mg PO QPM ferrous sulfate 325 mg (65 mg iron) Tablet,Delayed Release (Dr/Ec) 325 mg PO QAM Qty: 30 0RF Changed enoxaparin 120 mg/0.8 mL syringe 100 mg subcut Q12H Qty: 8 0RF Discontinued insulin aspart U-100 [Novolog U-100 Insulin aspart] 100 unit/mL solution 10 unit subcut AC Rx Instructions: hold if BS<100 insulin glargine [Lantus U-100 Insulin] 100 unit/mL solution See Rx Instructions .ROUTE .COMPLEX Qty: 10 0RF Rx Instructions: take 14 units in am before breakfast & 10 units at bedtime lisinopril 5 mg tablet 5 mg PO QAM Discharge Orders: Discharge Order (Routine); Ordered 09/16/22 Ordered By: Sebastian Torres Admission Data Admit Date/Time: 08/09/22 16:25 Attending Provider: Christian Eastman Admit Provider: Rigo Roa Primary Care Provider: Shane Gonzalez Other Providers: Daren Ricardo ; Lee Jones ; Ebony Hurt ; Ricardo Sauceda I. ; Ronnie Georges II ; Aaliyah Castle ; Alfred Bhatt ; Hussein Ng ; Aury Young ; Ruba Bowman ; Christian Foote ; Rigo Roa ; Ruba Dee at [place] ; Violet Howell ; Yasmany Richey ; Mk Chowdhury ; Ruth Ann Vaz ; Meliton Huff Other Interventions: Discharge Summary Assessment (RN) Last Done: 09/16/22 23:20
--- NOTE | 2022-09-20 12:08 | Coding Query ---
DEBRIDEMENT DOCUMENTATION To promote full compliance with coding requirements relating to patient care, physician participation is requested in all cases of coordinate measuring equipment operator uncertainty. Please assist us with the question(s) below: Regarding the Operative Report on 09/16. Please place an X in the parenthesis (x). If other, please document the findin. Type of Debridement: ( X) Excisional Debridement- Cutting away necrotic, devitalized tissue or slough to the level of viable tissue using a sharp instrument (i.e. scalpel, scissors, etc.) ( ) Non Excisional Debridement- The removal of necrotic, devitalized tissue or slough by means of scraping, mechanical brushing, flushing, or washing (i.e. irrigation,whirlpool);minor removal of loose fragments. ( ) Other (please specify): 2. Depth of Debridement: ( ) Skin ( ) Skin and Subcutaneous Tissue (X ) Skin, Subcutaneous Tissue and Muscle ( ) Skin, Subcutaneous Tissue, Muscle and Bone ( ) Other (please specify): Thank you Shakira GUAN
--- NOTE | 2022-09-21 07:45 | Coding Query ---
DEBRIDEMENT DOCUMENTATION To promote full compliance with coding requirements relating to patient care, physician participation is requested in all cases of sandblaster supervisor uncertainty. Please assist us with the question(s) below: Please specify regarding the debridement procedures done on the following 6 dates below: Please place an X in the parenthesis (x). If other, please document the findin. Date: 08/25/22 Depth of Debridement: ( ) Skin (x) Skin and Subcutaneous Tissue ( ) Skin, Subcutaneous Tissue and Muscle ( ) Skin, Subcutaneous Tissue, Muscle and Bone ( ) Other (please specify): 2. Date: 08/30/22 Depth of Debridement: ( ) Skin ( x) Skin and Subcutaneous Tissue ( ) Skin, Subcutaneous Tissue and Muscle ( ) Skin, Subcutaneous Tissue, Muscle and Bone ( ) Other (please specify): 3 Date: 09/01/22: Type of Debridement: (x ) Excisional Debridement- Cutting away necrotic, devitalized tissue or slough to the level of viable tissue using a sharp instrument (i.e. scalpel, scissors, etc.) ( ) Non Excisional Debridement- The removal of necrotic, devitalized tissue or slough by means of scraping, mechanical brushing, flushing, or washing (i.e. irrigation,whirlpool);minor removal of loose fragments. ( ) Other (please specify): Depth of Debridement: ( ) Skin ( x) Skin and Subcutaneous Tissue ( ) Skin, Subcutaneous Tissue and Muscle ( ) Skin, Subcutaneous Tissue, Muscle and Bone ( ) Other (please specify): 4. Date: 09/07/22: Type of Debridement: ( x) Excisional Debridement- Cutting away necrotic, devitalized tissue or slough to the level of viable tissue using a sharp instrument (i.e. scalpel, scissors, etc.) ( ) Non Excisional Debridement- The removal of necrotic, devitalized tissue or slough by means of scraping, mechanical brushing, flushing, or washing (i.e. irrigation,whirlpool);minor removal of loose fragments. ( ) Other (please specify): Depth of Debridement: ( ) Skin (x ) Skin and Subcutaneous Tissue ( ) Skin, Subcutaneous Tissue and Muscle ( ) Skin, Subcutaneous Tissue, Muscle and Bone ( ) Other (please specify): 5. Date: 09/09/22: Depth of Debridement: ( ) Skin ( ) Skin and Subcutaneous Tissue ( x) Skin, Subcutaneous Tissue and Muscle ( ) Skin, Subcutaneous Tissue, Muscle and Bone ( ) Other (please specify): 6. Date: 09/14/22: Type of Debridement: (x ) Excisional Debridement- Cutting away necrotic, devitalized tissue or slough to the level of viable tissue using a sharp instrument (i.e. scalpel, scissors, etc.) ( ) Non Excisional Debridement- The removal of necrotic, devitalized tissue or slough by means of scraping, mechanical brushing, flushing, or washing (i.e. irrigation,whirlpool);minor removal of loose fragments. ( ) Other (please specify): Depth of Debridement: ( ) Skin ( ) Skin and Subcutaneous Tissue ( x) Skin, Subcutaneous Tissue and Muscle ( ) Skin, Subcutaneous Tissue, Muscle and Bone ( ) Other (please specify): Thank you Shakira GUAN
--- NOTE | 2022-09-21 07:49 | Coding Query ---
To promote full compliance with coding requirements relating to patient care, provider participation is requested in all cases of communications billing analyst uncertainty. Please assist us with the question(s) below: Coding Question(s): The diagnosis below was documented in the Addendum on Dr. Roa's Hospitalist Progress Note 08/10/22, then subsequently fell off all further documentation. Please indicate if it is still a possible diagnosis or ruled out. Physician's Response(s): FUNCTIONAL QUADRIPLEGIA ( X ) Diagnosed and POA ( ) Diagnosed and not POA ( ) Ruled out ( ) Other (please specify) MTDD
--- NOTE | 2022-09-21 07:52 | Coding Query ---
CODING QUERY To promote full compliance with coding requirements relating to patient care, provider participation is requested in all cases of cooler room worker uncertainty. Please assist us with the question(s) below: Coding Question(s): There is documentation in the record that the patient was admitted for Anemia and also documentation that the patient was admitted for Hematoma of the right thigh. Please specify below, in your clinical opinion, the diagnosis most responsible for occasioning the inpatient admission: (X ) Anemia ( ) Right Thigh Hematoma ( ) Other: Please Specify Physician's Response(s): Thank you Shakira Hines Principal Diagnosis: "that condition established after study, to be chiefly responsible for occasioning the admission of the patient to the hospital for care." Co-Existing Principal Diagnosis: "when two or more diagnoses equally meet the criteria for principal diagnosis as determined by the circumstances of admission, diagnostic work up, and/or therapy provided, and the Alphabetic Index, Tabular List, or another coding guideline does not provide sequencing direction, any one of the diagnoses may be sequenced first." "When the physician has documented what appears to be a current diagnosis in the body of the record, but has not included the diagnosis in the final diagnostic statement, the physician should be asked whether the diagnosis should be added." ([facility] 2 QTR90. p3-4) FREIDA
== END 2022-09-16 23:22 | disposition short-term general hospital (02) | DRG 802 ==
LOC: ED 11:51 → SUATTDRO 16:25 → 2S 16:25 → 2N 08-24 21:34
DX: E11.649 Type 2 diabetes mellitus with hypoglycemia without coma; E78.5 Hyperlipidemia, unspecified; E83.42 Hypomagnesemia; I25.10 Atherosclerotic heart disease of native coronary artery without angina pectoris; Z79.01 Long term (current) use of anticoagulants; N39.0 Urinary tract infection, site not specified; T45.515A Adverse effect of anticoagulants, initial encounter; L89.152 Pressure ulcer of sacral region, stage 2; M79.81 Nontraumatic hematoma of soft tissue; M86.9 Osteomyelitis, unspecified; E11.42 Type 2 diabetes mellitus with diabetic polyneuropathy; I35.0 Nonrheumatic aortic (valve) stenosis; Z79.02 Long term (current) use of antithrombotics/antiplatelets; T36.95XA Adverse effect of unspecified systemic antibiotic, initial encounter; Z95.1 Presence of aortocoronary bypass graft; Z79.899 Other long term (current) drug therapy; Z79.84 Long term (current) use of oral hypoglycemic drugs; Z87.891 Personal history of nicotine dependence; L89.153 Pressure ulcer of sacral region, stage 3; D50.9 Iron deficiency anemia, unspecified; I10 Essential (primary) hypertension; D62 Acute posthemorrhagic anemia; E86.0 Dehydration; J90 Pleural effusion, not elsewhere classified; T45.8X5A Adverse effect of other primarily systemic and hematological agents, initial encounter; I24.8 Other forms of acute ischemic heart disease; R53.2 Functional quadriplegia; L89.154 Pressure ulcer of sacral region, stage 4; R19.5 Other fecal abnormalities; R50.81 Fever presenting with conditions classified elsewhere; Z86.718 Personal history of other venous thrombosis and embolism; Z79.4 Long term (current) use of insulin; B95.7 Other staphylococcus as the cause of diseases classified elsewhere; I96 Gangrene, not elsewhere classified; T45.525A Adverse effect of antithrombotic drugs, initial encounter; I69.362 Other paralytic syndrome following cerebral infarction affecting left dominant side; I69.351 Hemiplegia and hemiparesis following cerebral infarction affecting right dominant side; B96.5 Pseudomonas (aeruginosa) (mallei) (pseudomallei) as the cause of diseases classified elsewhere; I25.2 Old myocardial infarction; I69.320 Aphasia following cerebral infarction

== ENCOUNTER 2023-03-02 00:20 | Inpatient (IN) ==
[2023-03-02 01:18] LABS: Basophils # (auto) 0.03 K/uL (0.00-0.20); Basophils % (auto) 0.3 %; Eosinophils # (auto) 0.15 K/uL (0.00-0.50); Eosinophils % (auto) 1.5 %; Hematocrit (blood only) 34.7 % (42.0-52.0); Hemoglobin 10.8 g/dl (14.0-18.0); Immature Granulocytes # (auto) 0.03 K/uL (0.01-0.20); Immature Granulocytes % (auto) 0.3 %; Lymphocytes # (auto) 1.93 K/uL (1.20-3.40); Lymphocytes % (auto) 19.4 %; Mean Corpuscular Hemoglobin 22.5 pg (25.0-34.0); Mean Corpuscular Hgb Conc 31.1 g/dL (32.0-36.0); Mean Corpuscular Volume 72.3 fL (80.0-100.0); Mean Platelet Volume 9.8 fL (9.4-12.4); Monocytes # (auto) 0.55 K/uL (0.11-0.59); Monocytes % (auto) 5.5 %; Neutrophils # (auto) 7.24 K/uL (1.40-6.50); Platelet Count 393 K/uL (130-400); RDW Coefficient of Variation 17.6 % (11.5-14.5); White Blood Count 9.93 K/ul (4.8-10.8)
[2023-03-02 01:30] LABS: Alanine Aminotransferase 14 U/L (7-52); Albumin Globulin Ratio 0.9 (0.9-2); Albumin Level 3.1 gm/dl (3.4-5.0); Alkaline Phosphatase 89 U/L (34-104); Anion Gap 5 (3-11); Aspartate Aminotransferase 12 U/L (13-39); BUN Creatinine Ratio 53.1 (10-20); Bilirubin,Total 0.2 mg/dl (0.2-1.0); Blood Urea Nitrogen 26 mg/dl (6-23); Calcium 8.7 mg/dl (8.6-10.3); Carbon Dioxide 26 mmol/L (21-32); Chloride 97 mmol/L (98-107); Est GFR (African American) 133.8 ml/min; Est GFR (Non-African American) 115.5 ml/min; Globulin 3.3 gm/dl (2.5-4.0); Glucose 121 mg/dl (70-99(Fasting)); Lipase 8 U/L (11-82); Sodium 128 mmol/L (136-145); Total Protein 6.4 gm/dl (6.0-8.3)
[2023-03-02 01:44] LABS: Appearance Urine Cloudy (Clear); Bilirubin Urine Negative (Negative); Blood Urine 3+ (Negative); Color Urine Red; Glucose Urine UA Negative (Negative); Ketones Urine Negative (Negative); Leukocyte Esterase Urine Trace (Negative); Nitrite Urine Negative (Negative); Protein Urine 3+ (Negative); Specific Gravity Urine 1.025 (1.000-1.030); Urobilinogen Urine Negative (Negative); pH Urine 6.5 (4.5-7.5)
[2023-03-02 01:49] LABS: Epithelial Cell Urine 0-5 /lpf (0-5); RBC Urine >30 /hpf (0-4); WBC Urine >30 /hpf (0-5)
[2023-03-02 01:52] LABS: Bacteria Urine 1+ (Negative)
[2023-03-02] MEDS ORDERED: OPTIRAY 320 100ml IV ONE (01:59)
--- NOTE | 2023-03-02 02:32 | CT Scan Report ---
Exam(s): CT ABDOMEN + PELVIS With Contrast IV Amt: 90 ML OPTIRAY 320 EXAM: CT Abdomen and Pelvis With Intravenous Contrast CLINICAL HISTORY: Reason for exam: hematuria, decub ulcer,. TECHNIQUE: Axial computed tomography images of the abdomen and pelvis with intravenous contrast. CTDI is 21.91 mGy and DLP is 1208.15 mGy-cm. Automated exposure control was utilized for the study. A dose lowering technique was utilized adhering to the principles of ALARA. CONTRAST: Patient received 90 ML OPTIRAY 320 of IV contrast COMPARISON: Dated 11/17/22 FINDINGS: Lung bases: Unremarkable. No mass. No consolidation. ABDOMEN: Liver: Unremarkable. No mass. Gallbladder and bile ducts: Unremarkable. No calcified stones. No ductal dilation. Pancreas: Unremarkable. No mass. No ductal dilation. Spleen: Unremarkable. No splenomegaly. Adrenals: Thickening of the right adrenal gland is a stable finding. Kidneys and ureters: Unremarkable. No solid mass. No hydronephrosis. Stomach and bowel: Significant stool distention of the rectum. No mucosal thickening. PELVIS: Appendix: No findings to suggest acute appendicitis. Bladder: Nonspecific moderate bladder wall thickening. Hagan catheter in place within a collapsed urinary bladder. Reproductive: Unremarkable as visualized. ABDOMEN and PELVIS: Intraperitoneal space: Unremarkable. No free air. No significant fluid collection. Bones/joints: Changes of prior sternotomy. Soft tissue irregularity over the sacrum with osseous erosion of the sacrum/coccyx (image 80 series 2). Appearance is stable from prior. Extensive dystrophic calcification within the bilateral hip adductor musculature. No acute fracture. No dislocation. Soft tissues: See above. Vasculature: Partially visualized extensive atherosclerotic disease of the coronary arteries. No abdominal aortic aneurysm. Lymph nodes: Unremarkable. No enlarged lymph nodes. Tubes, lines and devices: Gastrostomy tube in place. IMPRESSION: 1. Moderate bladder wall thickening without hydronephrosis or CT evidence for involvement of the upper urinary tract. 2. Relatively stable appearance of a sacral decubitus ulcer with erosion of the underlying bone compatible with osteomyelitis. Electronically signed by: Micky Valdez MD 03/02/23 02:31 AM
--- NOTE | 2023-03-02 02:47 | Emergency Department Note ---
Impression & Plan Acute hyponatremia, Acute UTI (urinary tract infection), Hematuria ED Provider Note NAME: TREVIN POPE AGE: 62 SEX: M : 1960 ARRIVES VIA: Ambulance INFORMANT: Patient, ED PROVIDER(S): Gina Huntley MD CHIEF COMPLAINT: Hematuria HPI: This is a 62-year-old male with history of CVA, chronically ill, bedbound, paraplegic with sacral decubitus ulcer presenting for hematuria. Patient has indwelling Hagan which began having hematuria today. He nursing facility called EMS and patient was diverted here from [place]. EMS relates that there was hematuria in the Hagan catheter, no obstruction. Otherwise history is unknown. states that she was just told about hematuria. History otherwise limited. ROS: Unable to obtain PAST MEDICAL HISTORY: See Below PAST SURGICAL HISTORY: See Below FAMILY HISTORY: See Below SOCIAL HISTORY: See Below HOME MEDICATIONS: See Below ALLERGIES: See Below VITALS: See Below PHYSICAL EXAMINATION: General: Chronically ill-appearing, in contracture Head: Temporal wasting Eyes: Normal inspection, tracks, no conjunctival pallor Ear, nose, throat: Normal external exam Respiratory: Patient is in no respiratory distress, lungs clear to auscultation bilaterally Cardiovascular: RRR without murmur appreciated GI: G-tube in place, soft nontender, stage III sacral decubitus ulcer shows pus drainage Extremities: Extremities and contracture Neuro: The patient awake and alert, appropriately conversive,no focal decifits Skin: Warm, dry, and intact MEDICAL DECISION MAKING: This is a 62-year-old male presenting for hematuria. Hagan was flushed with improving hematuria, now just pink. Low concern for acute obstruction. Patient has UTI based on urinalysis, likely source of patient's hematuria. Will give ceftriaxone for this. Otherwise lab work shows a slight hyponatremia to 128. Will admit for further work-up. CT of the abdomen/pelvis reveals bladder wall thickening consistent with his UTI otherwise stable appearance of this decubitus ulcer. Triage Nursing notes reviewed. Prior medical records reviewed Vital Signs: reviewed and remarkable for no significant abnormalities Past Med/Surg History Medical History (Updated 03/02/23 @ 02:54 by Gina Huntley MD) Altered mental status Aortic valve stenosis BPH with obstruction/lower urinary tract symptoms CAD (coronary artery disease) 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 in the setting of diabetes for which patient initially underwent off pump 3 vessel coronary artery bypass grafting in 2006 with DUARTE to LAD, SVG to circumflex and SVG to PDA Bare metal stent to protected left main coronary artery 08/13/2015 PCI drug-eluting stent to the saphenous vein graft to RPDA 04/17/2014 PCI, drug-eluting stent to the ostial portion of the SVG to RCA 12/04/2014 for severe in stent restenosis Carotid stenosis Diabetic peripheral neuropathy associated with type 2 diabetes mellitus Discussion about advance care planning held with family member Dyslipidemia H/O deep venous thrombosis Hemiplegia affecting right dominant side History of CVA (cerebrovascular accident) History of pancreatitis HTN (hypertension) Hypomagnesemia Monoplegia affecting right dominant side Obesity Osteomyelitis of great toe of right foot Palliative care by specialist Persistent wound pain Preoperative cardiovascular examination Proliferative diabetic retinopathy Retinal edema Right foot drop Status post administration of all doses of COVID-19 vaccine series Status post cerebrovascular accident Status post myocardial infarction Superior mesenteric artery stenosis Type 2 diabetes mellitus Weakness generalized Surgical History Hx of vitrectomy S/P angioplasty with stent S/P CABG x 3 S/P debridement (09/16/22) Debridement of Sacral Wound with Wound Vac Placement(Not Applicable) - Ruth Ann Vaz, S/P percutaneous endoscopic gastrostomy (PEG) tube placement S/P PTCA (percutaneous transluminal coronary angioplasty) Family History Father Heart disease Social History Smoking Status: Unknown if ever smoked Tobacco Type: Cigarettes Second Hand Exposure: No; Do You Dip or Chew Tobacco: No; Hx Alcohol Use: No Hx Substance Use: No Preferred Language: Pashto Communication Ability: Impaired Communication Ability Comment: Intermittent Confusion and history of CVA. Visual Impairment: No Limitations Hearing Ability: Normal Coater Helper Required: No Beliefs That Will Affect Care: Spiritual marital status: Current Living Situation: Spouse Current Living Situation Comment: home with current occupational status: disabled Feels Safe at Home: Yes Assistive Devices: Glasses and Hospital Bed Allergies Allergies Allergy/AdvReac Type Severity Reaction Status Date / Time No Known Allergies Allergy Verified 08/09/22 15:58 Home Meds Home Medications Medication Instructions Recorded Confirmed nitroglycerin 0.4 mg sublingual 0.4 mg sublingual DIRECTED PRN 08/09/19 11/17/22 tablet Chest Pain tamsulosin 0.4 mg capsule 0.4 mg PO HS 01/11/21 11/17/22 atorvastatin 80 mg tablet 80 mg feeding tube QPM 05/17/21 11/17/22 clopidogrel 75 mg tablet (Plavix) 75 mg feeding tube QAM 11/17/22 11/17/22 enoxaparin 120 mg/0.8 mL 70 mg subcut Q12 11/17/22 11/17/22 subcutaneous syringe ferrous sulfate 325 mg (65 mg 325 mg PO QAM 11/17/22 11/17/22 iron) tablet,delayed release lisinopril 5 mg tablet 5 mg feeding tube DAILY 11/17/22 11/17/22 Previous Rx's Medication Instructions Recorded Tube Feeding Water Flush 100 ml PEG Q6H 30 days 02/24/23 acetaminophen 325 mg/10.15 mL oral 650 mg (20.3 mL) PEG Q6H PRN fever 02/24/23 suspension or pain 30 days #300 mL amiodarone 200 mg tablet 200 mg PEG BIDM 30 days #60 tabs 02/24/23 cholestyramine-aspartame 4 gram 4 g PO BID@1000,2200 30 days #60 ea 02/24/23 oral powder for susp in a packet (Prevalite) insulin aspart U-100 100 unit/mL 1 unit (0.01 mL) SC BID@1130,1630 02/24/23 subcutaneous solution (Novolog 30 days #100 mL U-100 Insulin aspart) insulin aspart U-100 100 unit/mL 1 unit (0.01 mL) SC DAILY@72902/24/23 subcutaneous solution (Novolog days #100 mL U-100 Insulin aspart) insulin aspart U-100 100 unit/mL 1 unit (0.01 mL) SC DAILY@199902/24/23 subcutaneous solution (Novolog days #100 mL U-100 Insulin aspart) insulin glargine 100 unit/mL 12 unit (0.12 mL) SC BID@829,199902/24/23 subcutaneous solution (Lantus 30 days #100 mL U-100 Insulin) magnesium oxide 400 mg (241.3 mg 400 mg PEG BID 30 days #60 tabs 02/24/23 magnesium) tablet metoprolol tartrate 25 mg tablet 25 mg PEG BID 30 days #60 tabs 02/24/23 metronidazole 500 mg tablet 500 mg feeding tube Q8 9 days #27 02/24/23 tabs miconazole nitrate 2 % topical 1 applic EXT PRN PRN fungal rash 02/24/23 powder (Desenex) 30 days #85 grams multivit and minerals-ferrous 15 ml PEG QAM 30 days #450 mL 02/24/23 gluconate 9 mg iron/15 mL oral liquid (Centrum) nystatin 100,000 unit/gram topical 1 applic EXT BID 14 days #15 grams 02/24/23 cream sulfamethoxazole 200 20 ml feeding tube Q12 9 days #360 02/24/23 mg-trimethoprim 40 mg/5 mL oral mL suspension tamsulosin 0.4 mg capsule 0.4 mg PEG QAM #30 caps 02/24/23 Results & Data (ED) Vital Signs Vital Signs - 24 hr 03/02/23 00:27 03/02/23 00:29 Temperature 36.9 C Temperature Source Oral Pulse Rate 70 69 Respiratory Rate 18 Blood Pressure 148/81 H Blood Pressure Mean 103 Pulse Oximetry 96 Oxygen Delivery Method Room Air Sepsis Recent Fever Within 48 Hours No Sepsis New/Unexplained Change in Mental Status No Sepsis Action Taken by Nursing No Action Required Laboratory Data 03/02/23 00:58 03/02/23 00:58 Lab Results 03/02/23 03/02/23 03/02/23 Range/Units 00:58 00:58 01:15 WBC 9.93 (4.8-10.8) K/ul RBC 4.80 (4.70-6.10) M/uL Hgb 10.8 L (14.0-18.0) g/dl Hct 34.7 L (42.0-52.0) % MCV 72.3 L (80.0-100.0) fL MCH 22.5 L (25.0-34.0) pg MCHC 31.1 L (32.0-36.0) g/dL RDW Std Deviation 46.0 (36.4-46.3) fL RDW Coeff of Caroline 17.6 H (11.5-14.5) % Plt Count 393 (130-400) K/uL MPV 9.8 (9.4-12.4) fL Immature Gran % (Auto) 0.3 % Neut % (Auto) 73.0 % Lymph % (Auto) 19.4 % Roosevelt % (Auto) 5.5 % Eos % (Auto) 1.5 % Baso % (Auto) 0.3 % Neut # (Auto) 7.24 H (1.40-6.50) K/uL Lymph # (Auto) 1.93 (1.20-3.40) K/uL Roosevelt # (Auto) 0.55 (0.11-0.59) K/uL Eos # (Auto) 0.15 (0.00-0.50) K/uL Baso # (Auto) 0.03 (0.00-0.20) K/uL Immature Gran # (Auto) 0.03 (0.01-0.20) K/uL Sodium 128 L (136-145) mmol/L Potassium 5.0 (3.5-5.1) mmol/L Chloride 97 L (98-107) mmol/L Carbon Dioxide 26 (21-32) mmol/L Anion Gap 5 (3-11) BUN 26 H (6-23) mg/dl Creatinine 0.49 L (0.6-1.4) mg/dl Est Cr Clr Drug Dosing Not Reportable Est GFR ( Amer) 133.8 ml/min Est GFR (Non-Af Amer) 115.5 ml/min BUN/Creatinine Ratio 53.1 H (10-20) Glucose 121 H (70-99(Fasting)) mg/dl Calcium 8.7 (8.6-10.3) mg/dl Total Bilirubin 0.2 (0.2-1.0) mg/dl AST 12 L (13-39) U/L ALT 14 (7-52) U/L Alkaline Phosphatase 89 (34-104) U/L Total Protein 6.4 (6.0-8.3) gm/dl Albumin 3.1 L (3.4-5.0) gm/dl Globulin 3.3 (2.5-4.0) gm/dl Albumin/Globulin Ratio 0.9 (0.9-2) Lipase 8 L (11-82) U/L Urine Color Red Urine Appearance Cloudy A (Clear) Urine pH 6.5 (4.5-7.5) Ur Specific Aldie 1.025 (1.000-1.030) Urine Protein 3+ H (Negative) Urine Glucose (UA) Negative (Negative) Urine Ketones Negative (Negative) Urine Blood 3+ H (Negative) Urine Nitrite Negative (Negative) Urine Bilirubin Negative (Negative) Urine Urobilinogen Negative (Negative) Ur Leukocyte Esterase Trace H (Negative) Urine RBC >30 H (0-4) /hpf Urine WBC >30 H (0-5) /hpf Ur Epithelial Cells 0-5 (0-5) /lpf Urine Bacteria 1+ H (Negative) Administered Medications Discontinued Medications Ioversol (Optiray 320 100ml) 100 ml IV ONCE ONE Stop: 03/02/23 02:00 Last Admin: 03/02/23 01:59 Dose: 90 ml Documented By: IMANI Imaging Data Radiologist's Impression: Abdomen/Pelvis CT 03/02/23 00:50 Exam(s): CT ABDOMEN + PELVIS With Contrast IV Amt: 90 ML OPTIRAY 320 EXAM: CT Abdomen and Pelvis With Intravenous Contrast CLINICAL HISTORY: Reason for exam: hematuria, decub ulcer,. TECHNIQUE: Axial computed tomography images of the abdomen and pelvis with intravenous contrast. CTDI is 21.91 mGy and DLP is 1208.15 mGy-cm. Automated exposure control was utilized for the study. A dose lowering technique was utilized adhering to the principles of ALARA. CONTRAST: Patient received 90 ML OPTIRAY 320 of IV contrast COMPARISON: Dated 11/17/22 FINDINGS: Lung bases: Unremarkable. No mass. No consolidation. ABDOMEN: Liver: Unremarkable. No mass. Gallbladder and bile ducts: Unremarkable. No calcified stones. No ductal dilation. Pancreas: Unremarkable. No mass. No ductal dilation. Spleen: Unremarkable. No splenomegaly. Adrenals: Thickening of the right adrenal gland is a stable finding. Kidneys and ureters: Unremarkable. No solid mass. No hydronephrosis. Stomach and bowel: Significant stool distention of the rectum. No mucosal thickening. PELVIS: Appendix: No findings to suggest acute appendicitis. Bladder: Nonspecific moderate bladder wall thickening. Hagan catheter in place within a collapsed urinary bladder. Reproductive: Unremarkable as visualized. ABDOMEN and PELVIS: Intraperitoneal space: Unremarkable. No free air. No significant fluid collection. Bones/joints: Changes of prior sternotomy. Soft tissue irregularity over the sacrum with osseous erosion of the sacrum/coccyx (image 80 series 2). Appearance is stable from prior. Extensive dystrophic calcification within the bilateral hip adductor musculature. No acute fracture. No dislocation. Soft tissues: See above. Vasculature: Partially visualized extensive atherosclerotic disease of the coronary arteries. No abdominal aortic aneurysm. Lymph nodes: Unremarkable. No enlarged lymph nodes. Tubes, lines and devices: Gastrostomy tube in place. IMPRESSION: 1. Moderate bladder wall thickening without hydronephrosis or CT evidence for involvement of the upper urinary tract. 2. Relatively stable appearance of a sacral decubitus ulcer with erosion of the underlying bone compatible with osteomyelitis. Electronically signed by: Micky Valdez MD 03/02/23 02:31 AM Discharge Plan Visit Data Chief Complaint: Hematuria ED Provider: Gina Huntley Discharge Problem: Acute hyponatremia, Acute UTI (urinary tract infection), Hematuria Forms Stand Alone Forms: [facility] Prescriptions Prescriptions: No Action nitroglycerin 0.4 mg tablet, sublingual 0.4 mg sublingual DIRECTED PRN (Reason: Chest Pain) Rx Instructions: PLACE ONE TABLET UNDER THE TONGUE EVERY 5 MINUTES FOR UP TO 3 DOSES OVER 15 MINUTES IF NEEDED FOR CHEST PAIN tamsulosin 0.4 mg capsule 0.4 mg PO HS Rx Instructions: via PEG atorvastatin 80 mg tablet 80 mg feeding tube QPM lisinopril 5 mg tablet 5 mg feeding tube DAILY enoxaparin 120 mg/0.8 mL syringe 70 mg subcut Q12 clopidogrel [Plavix] 75 mg tablet 75 mg feeding tube QAM ferrous sulfate 325 mg (65 mg iron) tablet,delayed release (DR/EC) 325 mg PO QAM Rx Instructions: via PEG tube metronidazole 500 mg Tablet 500 mg feeding tube Q8 9 Days Qty: 27 0RF sulfamethoxazole-trimethoprim 200-40 mg/5 mL Suspension 20 ml feeding tube Q12 9 Days Qty: 360 0RF tamsulosin 0.4 mg Capsule 0.4 mg PEG QAM Qty: 30 2RF amiodarone 200 mg Tablet 200 mg PEG BIDM 30 Days Qty: 60 2RF cholestyramine-aspartame [Prevalite] 4 gram Powder In Packet 4 g PO BID@1000,2200 30 Days Qty: 60 2RF metoprolol tartrate 25 mg Tablet 25 mg PEG BID 30 Days Qty: 60 2RF acetaminophen 325 mg/10.15 mL Suspension 650 mg PEG Q6H PRN (Reason: fever or pain) 30 Days Qty: 300 2RF insulin glargine [Lantus U-100 Insulin] 100 unit/mL Solution 12 unit SC BID@0830,1999 30 Days Qty: 100 2RF miconazole nitrate [Desenex] 2 % Powder 1 applic EXT PRN PRN (Reason: fungal rash) 30 Days Qty: 85 0RF magnesium oxide 400 mg (241.3 mg magnesium) Tablet 400 mg PEG BID 30 Days Qty: 60 2RF insulin aspart U-100 [Novolog U-100 Insulin aspart] 100 unit/mL Solution 1 unit SC DAILY@0730 30 Days Qty: 100 2RF Rx Instructions: per sliding scale insulin aspart U-100 [Novolog U-100 Insulin aspart] 100 unit/mL Solution 1 unit SC BID@1130,1630 30 Days Qty: 100 2RF Rx Instructions: per sliding scale insulin aspart U-100 [Novolog U-100 Insulin aspart] 100 unit/mL Solution 1 unit SC DAILY@1999 30 Days Qty: 100 0RF Rx Instructions: per sliding scale nystatin 100,000 unit/gram Cream 1 applic EXT BID 14 Days Qty: 15 0RF Rx Instructions: L armpit region Centrum 9 mg iron/15 mL Liquid 15 ml PEG QAM 30 Days Qty: 450 2RF Tube Feeding Water Flush 100 ml PEG Q6H 30 Days 0RF Referrals Referrals: Richard Lew M.D. [Primary Care Provider] -
[2023-03-02] MEDS ORDERED: cefTRIAXone SODIUM 2,000 MG in DEXTROSE 5% 50 ML IV SCH (03:00)
[2023-03-02] MEDS ORDERED: CEFEPIME 2,000 MG/20 ML VIAL IV STA (03:11)
[2023-03-02] MEDS ORDERED: SODIUM CHLORIDE 0.9% 500 ML IV ONE (03:12)
[2023-03-02 03:34] LABS: Thyroid Stimulating Hormone 2.711 uIu/ml (0.300-4.500)
--- NOTE | 2023-03-02 03:54 | History & Physical Report ---
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 Borderline hyperkalemia Bactrim and lisinopril medications contributory Hematuria secondary to complicated UTI hx BPH with indwelling Hagan catheter PAF/recurrent DVT on weight-based Lovenox (hx Coumadin/Eliquis failure as per records) Patient hemoglobin currently at baseline No sepsis for now chronic systolic heart failure (EF 35 to 40%, TTE 2022), patient euvolemic CAD status post CABG status post stent/CVA/PVD valvular heart disease (severe , mild MR) hypertension, stable hyperlipidemia, on statin Rx DM2 insulin requiring, well-controlled as of recent hemoglobin A1c of 6.6 this month chronic dysphagia status post PEG tube placement, patient deemed aspiration risk but allowed feeding with assistance as per BUDGET TECHNICIAN eval history of VRE past tobacco abuse Medical telemetry Careful correction of sodium with NSS Hyponatremia work-up Hold Bactrim for now given electrolyte abnormalities, hold lisinopril given borderline hyperkalemia Daptomycin in place of Bactrim for MRSA osteomyelitis, continue Flagyl course for Bacteroides pathogen (Update [facility] ID before regimen completed on 03/06) Nephrology consult Re: Acute on chronic hyponatremia Urine CS, Cefepime Appropriate to hold antiplatelet Rx and weight-based Lovenox for now given hematuria Follow H&H, transfuse PRBC if hemoglobin less than 8 and or for symptomatic anemia (Patient has signed consent form but would like to be notified prior to any blood product transfusion.) Resume antiplatelet Rx and anticoagulation if H&H stable, probably safer to start with low-dose IV heparin given hematuria. Basal bolus insulin, ISS BG goal 1 10-1 40, carb count coverage Social service re: rehab placement at a different facility (Patient does not want patient to return to [facility] upon discharge due to hassles of daily commute for her.) DVT prophylaxis. SCDs Re: Hematuria Full code Patient requesting updates for providers. Kelli Nasreen Turner, contact #[phone]. Text document was generated using [employer] voice recognition software. It may contain grammatical or spelling errors. Kindly contact undersigned for clarification of any documentation item in question. History of Present Illness Chief Complaint: Hematuria Primary Care Provider: Dr. Gonzalez History obtained from patient, family, and records. Limited history from patient secondary to aphasia. 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 Recurrent [facility] admissions since 2018. Last confinement November 17 to February 24, 2023 for sacrococcygeal osteomyelitis. Cultures grew MRSA and Bacteroides. [facility] ID recommended Bactrim and Flagyl course for 6 weeks (last day March 06, 2023). Patient eventually discharged [facility] facility last week. Patient complaining about stress of daily commute from her [place] residence to visit her at [facility]. Progressive hyponatremia and hyperkalemia on outpatient blood work done at rehab facility since discharge as per . 02/25 serum sodium 134, serum potassium 4.9 02/28 serum sodium 131, serum potassium 5 03/01 serum sodium 130, serum potassium 5.5 Rehab facility provider contemplating outpatient Nephrology consultation as per . Yesterday patient noted to have left sided abdominal discomfort by staff. Hematuria noted in Hagan catheter. Patient unable to verbalize chest pain, SOB symptoms. Patient brought to [facility] ER as per patient's request. IV ceftriaxone administered at the ER. 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, was living with prior to multiple protracted hospital confinements Allergies Allergy/AdvReac Type Severity Reaction Status Date / Time sulfamethoxazole AdvReac Intermediate Verified 03/02/23 04:17 [From Bactrim] trimethoprim [From Bactrim] AdvReac Intermediate Verified 03/02/23 04:17 Home Medications Medication Instructions Recorded Confirmed Type nitroglycerin 0.4 mg sublingual 0.4 mg sublingual DIRECTED PRN 08/09/19 03/02/23 History tablet Chest Pain tamsulosin 0.4 mg capsule 0.4 mg PO HS 01/11/21 03/02/23 History atorvastatin 80 mg tablet 80 mg feeding tube QPM 05/17/21 03/02/23 History clopidogrel 75 mg tablet (Plavix) 75 mg feeding tube QAM 11/17/22 03/02/23 History enoxaparin 120 mg/0.8 mL 70 mg subcut Q12 11/17/22 03/02/23 History subcutaneous syringe ferrous sulfate 325 mg (65 mg 325 mg PO QAM 11/17/22 03/02/23 History iron) tablet,delayed release lisinopril 5 mg tablet 5 mg feeding tube DAILY 11/17/22 03/02/23 History Tube Feeding Water Flush 100 ml PEG Q6H 30 days 02/24/23 03/02/23 Rx acetaminophen 325 mg/10.15 mL oral 650 mg (20.3 mL) PEG Q6H PRN fever 02/24/23 03/02/23 Rx suspension or pain 30 days #300 mL amiodarone 200 mg tablet 200 mg PEG BIDM 30 days #60 tabs 02/24/23 03/02/23 Rx cholestyramine-aspartame 4 gram 4 g PO BID@1000,2200 30 days #60 ea 02/24/23 03/02/23 Rx oral powder for susp in a packet (Prevalite) insulin aspart U-100 100 unit/mL 1 unit (0.01 mL) SC BID@1130,1630 02/24/23 03/02/23 Rx subcutaneous solution (Novolog 30 days #100 mL U-100 Insulin aspart) insulin aspart U-100 100 unit/mL 1 unit (0.01 mL) SC DAILY@0730 30 02/24/23 03/02/23 Rx subcutaneous solution (Novolog days #100 mL U-100 Insulin aspart) insulin aspart U-100 100 unit/mL 1 unit (0.01 mL) SC DAILY@199902/24/23 03/02/23 Rx subcutaneous solution (Novolog days #100 mL U-100 Insulin aspart) magnesium oxide 400 mg (241.3 mg 400 mg PEG BID 30 days #60 tabs 02/24/23 03/02/23 Rx magnesium) tablet metronidazole 500 mg tablet 500 mg feeding tube Q8 9 days #27 02/24/23 03/02/23 Rx tabs miconazole nitrate 2 % topical 1 applic EXT PRN PRN fungal rash 02/24/23 03/02/23 Rx powder (Desenex) 30 days #85 grams multivit and minerals-ferrous 15 ml PEG QAM 30 days #450 mL 02/24/23 03/02/23 Rx gluconate 9 mg iron/15 mL oral liquid (Centrum) nystatin 100,000 unit/gram topical 1 applic EXT BID 14 days #15 grams 02/24/23 03/02/23 Rx cream sulfamethoxazole 200 20 ml feeding tube Q12 9 days #360 02/24/23 03/02/23 Rx mg-trimethoprim 40 mg/5 mL oral mL suspension tamsulosin 0.4 mg capsule 0.4 mg PEG QAM #30 caps 02/24/23 03/02/23 Rx insulin glargine 100 unit/mL 16 unit SC BID@0830,2000 03/02/23 03/02/23 History subcutaneous solution (Lantus U-100 Insulin) Past Med/Surg History Medical History (Updated 03/02/23 @ 05:18 by Piter Owens MD) Altered mental status Aortic valve stenosis BPH with obstruction/lower urinary tract symptoms CAD (coronary artery disease) 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 in the setting of diabetes for which patient initially underwent off pump 3 vessel coronary artery bypass grafting in 2006 with DUARTE to LAD, SVG to circumflex and SVG to PDA Bare metal stent to protected left main coronary artery 08/13/2015 PCI drug-eluting stent to the saphenous vein graft to RPDA 04/17/2014 PCI, drug-eluting stent to the ostial portion of the SVG to RCA 12/04/2014 for severe in stent restenosis Carotid stenosis Diabetic peripheral neuropathy associated with type 2 diabetes mellitus Discussion about advance care planning held with family member Dyslipidemia H/O deep venous thrombosis Hemiplegia affecting right dominant side History of CVA (cerebrovascular accident) History of pancreatitis HTN (hypertension) Hypomagnesemia Monoplegia affecting right dominant side Obesity Osteomyelitis of [place] of right foot Palliative care by specialist Persistent wound pain Preoperative cardiovascular examination Proliferative diabetic retinopathy Retinal edema Right foot drop Status post administration of all doses of COVID-19 vaccine series Status post cerebrovascular accident Status post myocardial infarction Superior mesenteric artery stenosis Type 2 diabetes mellitus Weakness generalized Surgical History Hx of vitrectomy S/P angioplasty with stent S/P CABG x 3 S/P debridement (09/16/22) Debridement of Sacral Wound with Wound Vac Placement(Not Applicable) - Ruth Ann Vaz, DO S/P percutaneous endoscopic gastrostomy (PEG) tube placement S/P PTCA (percutaneous transluminal coronary angioplasty) Family History Father Heart disease Social History Smoking Status: Unknown if ever smoked Tobacco Type: Cigarettes Second Hand Exposure: No; Do You Dip or Chew Tobacco: No; Hx Alcohol Use: No Hx Substance Use: No Preferred Language: American Communication Ability: Impaired Communication Ability Comment: Intermittent Confusion and history of CVA. Visual Impairment: No Limitations Hearing Ability: Normal Kindergarten Paraprofessional Required: No Beliefs That Will Affect Care: Spiritual marital status: Current Living Situation: Spouse Current Living Situation Comment: home with current occupational status: disabled Feels Safe at Home: Yes Assistive Devices: Glasses and Hospital Bed Review of Systems Review of Systems: Could not be reliably obtained secondary to aphasia Physical Exam Physical Exam: GENERAL: Comfortable, aphasic, no respiratory distress SKIN: Pallor, warm HEENT: Partial alopecia, pale palpebral conjunctivae, no ptosis, dry buccal mucosa NECK : Supple, no tenderness CHEST : CTA, no tenderness HEART : RRR, systolic murmur over precordium, obliterated S1-S2 ABDOMEN: Some distention, nontender EXTREMITIES : No LE swelling/tenderness, no other conspicuous deformities noted NEUROLOGIC : Aphasic, no facial asymmetry, dense hemiparesis right (chronic) Results & Data Results & Data Vital Signs (Past 12 Hours) Vital Signs Temp Pulse Resp BP Pulse Ox O2 Del Method 03/02/23 00:29 69 03/02/23 00:27 36.9 C 70 18 148/81 H 96 Room Air Laboratory Results Laboratory Results WBC 9.93 K/ul (4.8-10.8) 03/02/23 00:58 RBC 4.80 M/uL (4.70-6.10) 03/02/23 00:58 Hgb 10.8 g/dl (14.0-18.0) L 03/02/23 00:58 Hct 34.7 % (42.0-52.0) L 03/02/23 00:58 MCV 72.3 fL (80.0-100.0) L 03/02/23 00:58 MCH 22.5 pg (25.0-34.0) L 03/02/23 00:58 MCHC 31.1 g/dL (32.0-36.0) L 03/02/23 00:58 RDW Std Deviation 46.0 fL (36.4-46.3) 03/02/23 00:58 RDW Coeff of Caroline 17.6 % (11.5-14.5) H 03/02/23 00:58 Plt Count 393 K/uL (130-400) 03/02/23 00:58 MPV 9.8 fL (9.4-12.4) 03/02/23 00:58 Immature Gran % (Auto) 0.3 % 03/02/23 00:58 Neut % (Auto) 73.0 % 03/02/23 00:58 Lymph % (Auto) 19.4 % 03/02/23 00:58 Colbert % (Auto) 5.5 % 03/02/23 00:58 Eos % (Auto) 1.5 % 03/02/23 00:58 Baso % (Auto) 0.3 % 03/02/23 00:58 Neut # (Auto) 7.24 K/uL (1.40-6.50) H 03/02/23 00:58 Lymph # (Auto) 1.93 K/uL (1.20-3.40) 03/02/23 00:58 Colbert # (Auto) 0.55 K/uL (0.11-0.59) 03/02/23 00:58 Eos # (Auto) 0.15 K/uL (0.00-0.50) 03/02/23 00:58 Baso # (Auto) 0.03 K/uL (0.00-0.20) 03/02/23 00:58 Immature Gran # (Auto) 0.03 K/uL (0.01-0.20) 03/02/23 00:58 Sodium 128 mmol/L (136-145) L 03/02/23 00:58 Potassium 5.0 mmol/L (3.5-5.1) 03/02/23 00:58 Chloride 97 mmol/L (98-107) L 03/02/23 00:58 Carbon Dioxide 26 mmol/L (21-32) 03/02/23 00:58 Anion Gap 5 (3-11) 03/02/23 00:58 BUN 26 mg/dl (6-23) H 03/02/23 00:58 Creatinine 0.49 mg/dl (0.6-1.4) L 03/02/23 00:58 Est Cr Clr Drug Dosing Not Reportable 03/02/23 00:58 Est GFR ( Amer) 133.8 ml/min 03/02/23 00:58 Est GFR (Non-Af Amer) 115.5 ml/min 03/02/23 00:58 BUN/Creatinine Ratio 53.1 (10-20) H 03/02/23 00:58 Glucose 121 mg/dl (70-99(Fasting)) H 03/02/23 00:58 Osmolality 276 mOsm/kg (280-300) L 03/02/23 00:58 Calcium 8.7 mg/dl (8.6-10.3) 03/02/23 00:58 Total Bilirubin 0.2 mg/dl (0.2-1.0) 03/02/23 00:58 AST 12 U/L (13-39) L 03/02/23 00:58 ALT 14 U/L (7-52) 03/02/23 00:58 Alkaline Phosphatase 89 U/L (34-104) 03/02/23 00:58 Total Protein 6.4 gm/dl (6.0-8.3) 03/02/23 00:58 Albumin 3.1 gm/dl (3.4-5.0) L 03/02/23 00:58 Globulin 3.3 gm/dl (2.5-4.0) 03/02/23 00:58 Albumin/Globulin Ratio 0.9 (0.9-2) 03/02/23 00:58 Lipase 8 U/L (11-82) L 03/02/23 00:58 TSH 2.711 uIu/ml (0.300-4.500) 03/02/23 00:58 Urine Color Red 03/02/23 01:15 Urine Appearance Cloudy (Clear) A 03/02/23 01:15 Urine pH 6.5 (4.5-7.5) 03/02/23 01:15 Ur Specific [place] 1.025 (1.000-1.030) 03/02/23 01:15 Urine Protein 3+ (Negative) H 03/02/23 01:15 Urine Glucose (UA) Negative (Negative) 03/02/23 01:15 Urine Ketones Negative (Negative) 03/02/23 01:15 Urine Blood 3+ (Negative) H 03/02/23 01:15 Urine Nitrite Negative (Negative) 03/02/23 01:15 Urine Bilirubin Negative (Negative) 03/02/23 01:15 Urine Urobilinogen Negative (Negative) 03/02/23 01:15 Ur Leukocyte Esterase Trace (Negative) H 03/02/23 01:15 Urine RBC >30 /hpf (0-4) H 03/02/23 01:15 Urine WBC >30 /hpf (0-5) H 03/02/23 01:15 Ur Epithelial Cells 0-5 /lpf (0-5) 03/02/23 01:15 Urine Bacteria 1+ (Negative) H 03/02/23 01:15 Impressions Abdomen/Pelvis CT 03/02/23 00:50 Exam(s): CT ABDOMEN + PELVIS With Contrast IV Amt: 90 ML OPTIRAY 320 EXAM: CT Abdomen and Pelvis With Intravenous Contrast CLINICAL HISTORY: Reason for exam: hematuria, decub ulcer,. TECHNIQUE: Axial computed tomography images of the abdomen and pelvis with intravenous contrast. CTDI is 21.91 mGy and DLP is 1208.15 mGy-cm. Automated exposure control was utilized for the study. A dose lowering technique was utilized adhering to the principles of ALARA. CONTRAST: Patient received 90 ML OPTIRAY 320 of IV contrast COMPARISON: Dated 11/17/22 FINDINGS: Lung bases: Unremarkable. No mass. No consolidation. ABDOMEN: Liver: Unremarkable. No mass. Gallbladder and bile ducts: Unremarkable. No calcified stones. No ductal dilation. Pancreas: Unremarkable. No mass. No ductal dilation. Spleen: Unremarkable. No splenomegaly. Adrenals: Thickening of the right adrenal gland is a stable finding. Kidneys and ureters: Unremarkable. No solid mass. No hydronephrosis. Stomach and bowel: Significant stool distention of the rectum. No mucosal thickening. PELVIS: Appendix: No findings to suggest acute appendicitis. Bladder: Nonspecific moderate bladder wall thickening. Hagan catheter in place within a collapsed urinary bladder. Reproductive: Unremarkable as visualized. ABDOMEN and PELVIS: Intraperitoneal space: Unremarkable. No free air. No significant fluid collection. Bones/joints: Changes of prior sternotomy. Soft tissue irregularity over the sacrum with osseous erosion of the sacrum/coccyx (image 80 series 2). Appearance is stable from prior. Extensive dystrophic calcification within the bilateral hip adductor musculature. No acute fracture. No dislocation. Soft tissues: See above. Vasculature: Partially visualized extensive atherosclerotic disease of the coronary arteries. No abdominal aortic aneurysm. Lymph nodes: Unremarkable. No enlarged lymph nodes. Tubes, lines and devices: Gastrostomy tube in place. IMPRESSION: 1. Moderate bladder wall thickening without hydronephrosis or CT evidence for involvement of the upper urinary tract. 2. Relatively stable appearance of a sacral decubitus ulcer with erosion of the underlying bone compatible with osteomyelitis. Electronically signed by: Micky Valdez MD 03/02/23 02:31 AM Diagnostic Findings Chest x-ray as per interpretation cardiomegaly, atelectasis
[2023-03-02] MEDS ORDERED: PROMETHAZINE 6.25 MG/50.25 ML BAG IV PRN (04:00)
[2023-03-02] MEDS ORDERED: Patient's HEIGHT &/or WEIGHT Needed STA (04:25)
[2023-03-02] MEDS ORDERED: GLUCOSE 10 TAB/TUBE PO PRN (05:49)
[2023-03-02] MEDS ORDERED: GLUCOSE 40% GEL 15 GM TUBE PO PRN (05:49)
[2023-03-02] MEDS ORDERED: DEXTROSE 50% 50 ML SYRINGE IV PRN (05:49)
[2023-03-02] MEDS ORDERED: GLUCAGON FOR INJ 1 MG VIAL SQ PRN (05:49)
[2023-03-02] MEDS ORDERED: CARBOHYDRATES FOR HYPOGLYCEMIA PO PRN (05:49)
[2023-03-02] MEDS: DAPTOmycin 450 MG in SYRINGE 0 ML IV SCH (06:26)
[2023-03-02] MEDS ORDERED: MICONAZOLE NITRATE POWDER 85 GM EXT PRN (06:27)
[2023-03-02] MEDS ORDERED: NITROGLYCERIN SL 0.4 MG/TAB TAB SL PRN (06:27)
--- NOTE | 2023-03-02 07:00 | XRay Report ---
XR chest 1V portable HISTORY: hyponatremia COMPARISON: Chest 01/29/2023. FINDINGS: There are low lung volumes. A few left basilar linear densities favor subsegmental atelecta sis. Otherwise, the lungs are clear. No evidence for pulmonary edema. The cardiac silhouette remains mildly enlarged. There are poststernotomy changes again noted. Degenerative changes within the should ers. IMPRESSION: 1. Stable mild cardiomegaly. 2. Otherwise, no acute process within the chest. ACT 112: Negative or not required by law. Electronically signed by: Chris Bowens M.D. 03/02/2023 6:59 AM
[2023-03-02 08:14] LABS: Hemoglobin 10.6 g/dl (14.0-18.0)
[2023-03-02 08:30] LABS: BUN Creatinine Ratio 47.7 (10-20); Calcium 8.5 mg/dl (8.6-10.3); Creatinine Clr Calc Pharmacy 174.9 ml/min; Est GFR (African American) 139.9 ml/min; Est GFR (Non-African American) 120.7 ml/min; Potassium 4.7 mmol/L (3.5-5.1)
[2023-03-02] MEDS ORDERED: LANTUS PER UNIT CHARGE SC SCH (08:30)
[2023-03-02 08:38] LABS: Partial Thromboplastin Ratio 1.2; Partial Thromboplastin Time 33.1 Seconds (21.0-31.0)
[2023-03-02] MEDS: AMIODARONE 200 MG TAB PEG SCH ×2 (09:34→17:04)
[2023-03-02] MEDS: TUBE FEEDING WATER FLUSH PEG SCH ×3 (09:34→22:09)
[2023-03-02] MEDS: FERROUS SULFATE 325 MG TAB PO SCH (09:34)
[2023-03-02] MEDS: MAGNESIUM OXIDE 400 MG TAB PEG SCH ×2 (09:35→22:12)
[2023-03-02] MEDS: metroNIDAZOLE Susp 50mg/ml PO SCH ×3 (09:35→23:11)
[2023-03-02] MEDS: TAMSULOSIN HCL 0.4 MG CAP PEG SCH (09:35)
[2023-03-02] MEDS: MULTI VIT W/MINERALS LIQUID 15 ML UDP PEG SCH (09:35)
[2023-03-02] MEDS: CHOLESTYRAMINE LIGHT 4 GM PKT PO SCH ×2 (09:35→23:13)
[2023-03-02] MEDS: INSULIN ASPART PER UNIT CHARGE SC SCH ×4 (09:51→22:38)
[2023-03-02] MEDS: LANTUS PER UNIT CHARGE SC SCH ×3 (09:51→22:40)
[2023-03-02] MEDS ORDERED: CEFEPIME 2,000 MG/20 ML VIAL ONE (13:23)
[2023-03-02] MEDS: CEFEPIME 2,000 MG in SYRINGE 0 ML IV SCH ×2 (13:56→22:09)
[2023-03-02] MEDS ORDERED: metroNIDAZOLE 500 MG TAB PO SCH (14:00)
--- NOTE | 2023-03-02 14:33 | Nephrology Consultation ---
Date of Consultation March 02, 2023 Assessment & Plan (1) Hyponatremia: worsening of chronic mild hyponatremia now moderate. Pt had issues w/ hyponatremia during recent admission here > on review of labs 01/30-02/24 sNa ranges 131-133. history of recent hyponatremia/hyperkalemia as OP, which may well be c/w bactrim therapy now stopped. presented w/ sNa 128 at [facility] today and 127 at 0800 w/ gradual downtrend over several previous days difficult, if not impossible to evaluate for symptoms in this clinical setting; no evidence of confusion or malaise; no hx of n/v no overloaded on exam, by hx, or on imaging; per pt had been eating/drinking well at outside facility > ? diet w/ significantly lower solute/lower protein content -goal sNa is no more than 133 by tomorrow am continue to hold bactrim >> defer to primary service whether alternative med to this will be needed to complete abtx course no FR since he is on liquid diet currently; no indication for IV fluids no indication for lasix, salt tabs, or urea at this time but monitor for need strict I/O continue free water flushes 100 mL q6h reasonable at this point to resume high protein diet, not only to help with wound healing but also to increase solute in diet recheck BMP ordered for later this afternoon History of Present Illness Reason for Consultation: hyponatremia Requesting Physician: Dr Owens Attending Physician: Jolie Carr MD History of Present Illness 62 y/o F whom I'm asked to see for hyponatremia was admitted overnight from rehab for acute worsening of chronic hyponatremia w/ presenting sodium 128. 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 Pt on extended course of bactrim/flagyl planned per inf dzs to run through 03/06/23. Pt recent d/c from [facility] to [place] [facility]. Multiple hospital admissions since August 2022 to [facility], [facility], [facility] [place] w/ complications of sacral wound and OM. Pt w/ L sided abdominal pain yesterday at rehab as well as gross hematuria in barajas. Also w/ progressive hyponatremia and hyperkalemia on outpatient blood work done at rehab facility per H&P's report of labs. 02/25 sodium 134, potassium 4.9 02/28 sodium 131, potassium 5 03/01 sodium 130, potassium 5.5 BG per had also been elevated recently w/ diet changes at outside facility, at times as high as 300s. diet was changed from intensively high protein diet to more carb based choices. Pt on FWF 100 mL q6h PEG and liquid diet. He had 500 mL NS in ER. Also w/ 1.4 L UOP since arrival. Pt speaks but can give only limited hx. He can tell me what kind of dog he has and what her name is. denies thirst or uncontrolled pain or sob. Allergies Allergy/AdvReac Type Severity Reaction Status Date / Time sulfamethoxazole AdvReac Intermediate Verified 03/02/23 04:17 [From Bactrim] trimethoprim [From Bactrim] AdvReac Intermediate Verified 03/02/23 04:17 Home Medications Medication Instructions Recorded Confirmed Type nitroglycerin 0.4 mg sublingual 0.4 mg sublingual DIRECTED PRN 08/09/19 03/02/23 History tablet Chest Pain tamsulosin 0.4 mg capsule 0.4 mg PO HS 01/11/21 03/02/23 History atorvastatin 80 mg tablet 80 mg feeding tube QPM 05/17/21 03/02/23 History clopidogrel 75 mg tablet (Plavix) 75 mg feeding tube QAM 11/17/22 03/02/23 History enoxaparin 120 mg/0.8 mL 70 mg subcut Q12 11/17/22 03/02/23 History subcutaneous syringe ferrous sulfate 325 mg (65 mg 325 mg PO QAM 11/17/22 03/02/23 History iron) tablet,delayed release lisinopril 5 mg tablet 5 mg feeding tube DAILY 11/17/22 03/02/23 History Tube Feeding Water Flush 100 ml PEG Q6H 30 days 02/24/23 03/02/23 Rx acetaminophen 325 mg/10.15 mL oral 650 mg (20.3 mL) PEG Q6H PRN fever 02/24/23 03/02/23 Rx suspension or pain 30 days #300 mL amiodarone 200 mg tablet 200 mg PEG BIDM 30 days #60 tabs 02/24/23 03/02/23 Rx cholestyramine-aspartame 4 gram 4 g PO BID@1000,2200 30 days #60 ea 02/24/23 03/02/23 Rx oral powder for susp in a packet (Prevalite) insulin aspart U-100 100 unit/mL 1 unit (0.01 mL) SC BID@1130,1630 02/24/23 03/02/23 Rx subcutaneous solution (Novolog 30 days #100 mL U-100 Insulin aspart) insulin aspart U-100 100 unit/mL 1 unit (0.01 mL) SC DAILY@0730 30 02/24/23 03/02/23 Rx subcutaneous solution (Novolog days #100 mL U-100 Insulin aspart) insulin aspart U-100 100 unit/mL 1 unit (0.01 mL) SC DAILY@1999 30 02/24/23 03/02/23 Rx subcutaneous solution (Novolog days #100 mL U-100 Insulin aspart) magnesium oxide 400 mg (241.3 mg 400 mg PEG BID 30 days #60 tabs 02/24/23 03/02/23 Rx magnesium) tablet metronidazole 500 mg tablet 500 mg feeding tube Q8 9 days #27 02/24/23 03/02/23 Rx tabs miconazole nitrate 2 % topical 1 applic EXT PRN PRN fungal rash 02/24/23 03/02/23 Rx powder (Desenex) 30 days #85 grams multivit and minerals-ferrous 15 ml PEG QAM 30 days #450 mL 02/24/23 03/02/23 Rx gluconate 9 mg iron/15 mL oral liquid (Centrum) nystatin 100,000 unit/gram topical 1 applic EXT BID 14 days #15 grams 02/24/23 03/02/23 Rx cream sulfamethoxazole 200 20 ml feeding tube Q12 9 days #360 02/24/23 03/02/23 Rx mg-trimethoprim 40 mg/5 mL oral mL suspension tamsulosin 0.4 mg capsule 0.4 mg PEG QAM #30 caps 02/24/23 03/02/23 Rx insulin glargine 100 unit/mL 16 unit SC BID@0830,199903/02/23 03/02/23 History subcutaneous solution (Lantus U-100 Insulin) Patient History Medical History Altered mental status Aortic valve stenosis BPH with obstruction/lower urinary tract symptoms CAD (coronary artery disease) 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 in the setting of diabetes for which patient initially underwent off pump 3 vessel coronary artery bypass grafting in 2006 with DUARTE to LAD, SVG to circumflex and SVG to PDA Bare metal stent to protected left main coronary artery 08/13/2015 PCI drug-eluting stent to the saphenous vein graft to RPDA 04/17/2014 PCI, drug-eluting stent to the ostial portion of the SVG to RCA 12/04/2014 for severe in stent restenosis Carotid stenosis Diabetic peripheral neuropathy associated with type 2 diabetes mellitus Discussion about advance care planning held with family member Dyslipidemia H/O deep venous thrombosis Hemiplegia affecting right dominant side History of CVA (cerebrovascular accident) History of pancreatitis HTN (hypertension) Hypomagnesemia Monoplegia affecting right dominant side Obesity Osteomyelitis of great toe of right foot Palliative care by specialist Persistent wound pain Preoperative cardiovascular examination Proliferative diabetic retinopathy Retinal edema Right foot drop Status post administration of all doses of COVID-19 vaccine series Status post cerebrovascular accident Status post myocardial infarction Superior mesenteric artery stenosis Type 2 diabetes mellitus Weakness generalized Surgical History Hx of vitrectomy S/P angioplasty with stent S/P CABG x 3 S/P debridement (09/16/22) Debridement of Sacral Wound with Wound Vac Placement(Not Applicable) - Ruth Ann Vaz DO S/P percutaneous endoscopic gastrostomy (PEG) tube placement S/P PTCA (percutaneous transluminal coronary angioplasty) Family History Father Heart disease Social History Smoking Status: Unknown if ever smoked Tobacco Type: Cigarettes Second Hand Exposure: No; Do You Dip or Chew Tobacco: No; Hx Alcohol Use: No Hx Substance Use: No Preferred Language: Kazakh Communication Ability: Impaired Communication Ability Comment: Intermittent Confusion and history of CVA. Visual Impairment: No Limitations Hearing Ability: Normal [employer] Required: No Beliefs That Will Affect Care: Spiritual marital status: Current Living Situation: Snf current occupational status: disabled Other Information That Helps Us Care for You: No Feels Safe at Home: Yes Safety Concerns: Feels Safe At This Time Assistive Devices: Glasses Review of Systems Review of Systems: Other (limited by pt expressive aphasia) Physical Exam Constitutional: well developed, average body habitus, + physical limitations, + frail appearing and cooperative; no acute distress Eyes: EOM intact bilaterally ENMT: Ears: no external ear abnormality Nose: no external nose abnormality Mouth: + dry oral mucous membranes Neck: no nuchal rigidity Respiratory: normal respiratory effort Auscultation: + diminished lung sounds Cardiovascular: Rate/Rhythm: regular rate and regular rhythm Heart Sounds: + murmur Extremities: no edema Gastrointestinal (Abdomen): Inspection/Auscultation: normal bowel sounds Percussion/Palpation: abdomen soft (PEG present); abdomen nontender Musculoskeletal: Extremities: + limited ROM of extremities, + abnormal strength and + abnormal muscle tone Skin: no rashes, warm and dry (decubitous not examined) Neurologic: alert, follows conversation and participates to a degree; readily forms 1-2 words which are hard to understand for examiner but not Results & Data Vital Signs (Past 12 Hours) Vital Signs Temp Pulse Pulse Resp BP Pulse Ox O2 Del Method 03/02/23 13:16 68 23 119/55 L 94 Room Air 03/02/23 09:30 36.9 C 74 16 120/69 98 Room Air 03/02/23 07:17 70 03/02/23 06:46 36.9 C 71 22 142/81 H 99 Room Air 03/02/23 04:35 70 03/02/23 04:30 72 20 108/54 L 96 Room Air Laboratory Results 03/02/23 07:55 03/02/23 07:55 s osm 276, uOsm 680, Enrique 122 UA reviewed Diagnostic Findings cxr FINDINGS: There are low lung volumes. A few left basilar linear densities favor subsegmental atelectasis. Otherwise, the lungs are clear. No evidence for pulmonary edema. The cardiac silhouette remains mildly enlarged. There are poststernotomy changes again noted. Degenerative changes within the shoulders. IMPRESSION: 1. Stable mild cardiomegaly. 2. Otherwise, no acute process within the chest. CT a/p w/ IV con 1. Moderate bladder wall thickening without hydronephrosis or CT evidence for involvement of the upper urinary tract. 2. Relatively stable appearance of a sacral decubitus ulcer with erosion of the underlying bone compatible with osteomyelitis.
[2023-03-02 15:41] LABS: Hematocrit (blood only) 34.1 % (42.0-52.0); Hemoglobin 10.6 g/dl (14.0-18.0)
[2023-03-02 15:55] LABS: BUN Creatinine Ratio 34.7 (10-20); Calcium 8.3 mg/dl (8.6-10.3); Est GFR (African American) 133.8 ml/min; Est GFR (Non-African American) 115.5 ml/min; Potassium 4.8 mmol/L (3.5-5.1)
--- NOTE | 2023-03-02 18:56 | Communication Note ---
Date of Service: March 02, 2023 The patient was seen and examined in presence of the in the emergency room. Remains stable without any acute symptoms. Hematuria is resolved. Sodium level has been coming up. Will a full progress note tomorrow. Dr Trang Carr
[2023-03-02] MEDS: PEPTAMEN INTENSE VHP 1.0 CAL 1,000 ML BAG PEG SCH (22:08)
[2023-03-02] MEDS: TAMSULOSIN HCL 0.4 MG CAP PO SCH (22:21)
[2023-03-03] MEDS: TUBE FEEDING WATER FLUSH PEG SCH ×4 (03:39→17:43)
[2023-03-03] MEDS: CEFEPIME 2,000 MG in SYRINGE 0 ML IV SCH ×3 (03:41→20:57)
[2023-03-03] MEDS: DAPTOmycin 450 MG in SYRINGE 0 ML IV SCH (05:33)
[2023-03-03 07:43] LABS: Basophils # (auto) 0.03 K/uL (0.00-0.20); Basophils % (auto) 0.4 %; Eosinophils # (auto) 0.06 K/uL (0.00-0.50); Eosinophils % (auto) 0.8 %; Hematocrit (blood only) 34.8 % (42.0-52.0); Hemoglobin 10.6 g/dl (14.0-18.0); Immature Granulocytes # (auto) 0.04 K/uL (0.01-0.20); Immature Granulocytes % (auto) 0.5 %; Lymphocytes # (auto) 0.99 K/uL (1.20-3.40); Lymphocytes % (auto) 13.5 %; Mean Corpuscular Hemoglobin 22.3 pg (25.0-34.0); Mean Corpuscular Hgb Conc 30.5 g/dL (32.0-36.0); Mean Corpuscular Volume 73.1 fL (80.0-100.0); Mean Platelet Volume 10.2 fL (9.4-12.4); Monocytes # (auto) 0.39 K/uL (0.11-0.59); Monocytes % (auto) 5.3 %; Neutrophils # (auto) 5.84 K/uL (1.40-6.50); Neutrophils % (auto) 79.5 %; Platelet Count 336 K/uL (130-400); RDW Coefficient of Variation 17.5 % (11.5-14.5); RDW Standard Deviation 45.7 fL (36.4-46.3); Red Blood Count 4.76 M/uL (4.70-6.10); White Blood Count 7.35 K/ul (4.8-10.8)
[2023-03-03 07:55] LABS: BUN Creatinine Ratio 53.8 (10-20); Calcium 8.3 mg/dl (8.6-10.3); Creatinine Clr Calc Pharmacy 171.9 ml/min; Est GFR (Non-African American) 126.8 ml/min; Magnesium 1.6 mg/dl (1.7-2.4); Phosphorus 3.1 mg/dl (2.5-4.9); Potassium 4.4 mmol/L (3.5-5.1)
[2023-03-03] MEDS ORDERED: MAGNESIUM SULFATE / D5W 1 GM/100 ML BAG IV ONE (07:56)
[2023-03-03] MEDS ORDERED: [UNRECOGNIZED DRUG - REMARK] ONE (08:00)
[2023-03-03] MEDS: LANTUS PER UNIT CHARGE SC SCH ×2 (09:55→20:50)
[2023-03-03] MEDS: INSULIN ASPART PER UNIT CHARGE SC SCH ×4 (09:56→20:49)
--- NOTE | 2023-03-03 10:24 | Nephrology Progress Note ---
Date of Service March 03, 2023 Assessment & Plan (1) Hyponatremia: Plan: improving exacerbation of chronic mild hyponatremia to soduim 130 today; K 4.4 which is acceptable. Pt had issues w/ hyponatremia during recent admission here > on review of labs 01/30-02/24 sNa ranges 131-133. history of recent hyponatremia/hyperkalemia as OP, which may well be c/w bactrim therapy now stopped. presented w/ sNa 128 at [facility] 03/02 [place] and 127 at 0800 w/ gradual downtrend over several previous days difficult, if not impossible to evaluate for symptoms in this clinical setting; no evidence of confusion or malaise; no hx of n/v no overloaded on exam, by hx, or on imaging; per pt had been eating/drinking well at outside facility > ? diet w/ significantly lower solu te/lower protein content -goal sNa is no more than 136 by tomorrow am he is autodiuresing w/ resumption of higher protein diet and holding bactrim -on dapto and cefepime daily at least no FR since he is on liquid diet currently; no indication for IV fluids >> if feasible clinically would work to get him back on diet closer to that prior to last hospital d/c > more protein, fewer liquids no indication for lasix, salt tabs, or urea at this time but monitor for need strict I/O continue free water flushes 100 mL q6h daily BMP at this point Admission and Anticipated Discharge Date Admission Date: March 02, 2023 Subjective no interval events. pt tired today but interactive. on liquid diet and TF Review of Systems Review of Systems: All systems reviewed & are unremarkable except as noted in Subjective Physical Exam Constitutional: well developed, average body habitus, + physical limitations, + frail appearing and cooperative; no acute distress Eyes: EOM intact bilaterally ENMT: Ears: no external ear abnormality Nose: no external nose abnormality Mouth: + dry oral mucous membranes Neck: no nuchal rigidity Respiratory: normal respiratory effort Auscultation: + diminished lung sounds Cardiovascular: Rate/Rhythm: regular rate and regular rhythm Heart Sounds: + murmur Extremities: no edema Gastrointestinal (Abdomen): Inspection/Auscultation: normal bowel sounds Percussion/Palpation: abdomen soft (PEG present); abdomen nontender Musculoskeletal: Extremities: + limited ROM of extremities, + abnormal strength and + abnormal muscle tone Skin: no rashes, warm and dry (decubitous not examined) Results & Data Vital Signs (Past 12 Hours) Vital Signs Temp Pulse Resp BP Pulse Ox O2 Del Method 03/03/23 07:52 Room Air 03/03/23 06:42 36.5 C 85 20 128/75 98 Room Air 03/03/23 03:49 36.6 C 79 18 134/78 95 Room Air Laboratory Results 03/03/23 07:20 03/03/23 07:20
[2023-03-03] MEDS: AMIODARONE 200 MG TAB PEG SCH ×2 (10:42→17:44)
[2023-03-03] MEDS: FERROUS SULFATE 325 MG TAB PO SCH (10:42)
[2023-03-03] MEDS: MAGNESIUM OXIDE 400 MG TAB PEG SCH ×2 (10:43→20:53)
[2023-03-03] MEDS: TAMSULOSIN HCL 0.4 MG CAP PEG SCH (10:43)
[2023-03-03] MEDS: CHOLESTYRAMINE LIGHT 4 GM PKT PO SCH ×2 (10:44→20:58)
[2023-03-03] MEDS: MULTI VIT W/MINERALS LIQUID 15 ML UDP PEG SCH (12:30)
[2023-03-03] MEDS: metroNIDAZOLE Susp 50mg/ml PO SCH ×3 (12:30→20:57)
--- NOTE | 2023-03-03 16:06 | Hospitalist Progress Note ---
Date of Service March 03, 2023 Assessment & Plan (1) Acute hyponatremia: Plan: Transfer to [facility] ER from [facility] Noted to have hyponatremia on admission with a sodium level of 1 27-1 28 Likely secondary to use of Bactrim Appreciate nephrology input and recommendation Sodium level went up to 130 as of 02/23/2023 We will continue to monitor (2) Hematuria: Plan: [place] hematuria noted in the facility Likely secondary to trauma due to Hagan catheter CT scan of the chest and pelvis did show nonspecific thickening of the bladder wall Hematuria resolved without any drop in hemoglobin We will restart Lovenox from today Discussed with the in detail (3) Sacral wound: (4) Aortic stenosis: (5) Paroxysmal atrial fibrillation: (6) Peripheral arterial disease: (7) History of CVA (cerebrovascular accident): (8) BPH with obstruction/lower urinary tract symptoms: (9) Type 2 diabetes mellitus: (10) HTN (hypertension): (11) Weakness generalized: Plan Notes from prior hospitalists 02/24 patient remains stable overall Plan of care including discharge to custodial facility discussed with patient's Ms. Downey at the bedside in detail and at length She is agreeable for patient's discharge today to SNF Called [facility] yesterday in her behalf with her permission, [facility] staff confirmed Ms. Downey is in good standing for driving since February 19 Relayed to Ms. Downey, she is happy to be able to drive again and visit Mr. Short at the custodial facility Discussed with Dr. Lew- [facility] physician, in detail and at length regarding patient's medical condition and plan of care Also discussed with OMER Espinosa regarding specific instructions to give during signout with custodial facility RN 03/02/2023 He was transferred back to the ER with hematuria and noted to have hyponatremia as above Per previous attending notes with addendum: 62-year-old male with PMH of CAD, recurrent CVA while receiving ASA and Plavix prompting initiation of warfarin, breakthrough DVT on warfarin and Eliquis currently anticoagulated with therapeutic Lovenox, T2DM, HLD, borderline severe aortic valve stenosis, bedbound status and various other comorbid diseases presented to the ED 11/17 for evaluation of fever and lethargy. SACROCOCCYGEAL OSTEOMYELITIS SACROCOCCYGEAL WOUND/DECUBITUS ULCER STAGE IV: Presented from [facility] this admission CT abd/pelvis 11/17/2022- "Sacral decubitus ulcer which extends to the underlying bone. Interval erosion of the posterior elements of L5 and the first and second coccygeal segments since CT of August 10, 2022. The findings suggest acute osteomyelitis. Associated paravertebral stranding consistent with cellulitis." s/p bone biopsy 11/22 : positive for Staph aureus MRSA. Previous cultures from [facility] grew Pseudomonas Per Dr. Young -ID specialist in [place], continue with intravenous caspofungin, daptomycin and IV Zerbaxa for a total of 6 weeks Already completed Dapto + Zebraxa x 42 days- last dose 01/05/2023 Wound culture from 01/19/2023 is growing Staph aureus MRSA, Staphylococcus aureus and bacteroids thetaiomicron Discussed with ID on-call Dr. Goss and was advised to continue Bactrim and Flagyl for current wound infection-this should be continued for 6 weeks He can have ID follow-up via telemedicine on a later date if needed Remains afebrile and will continue current suppressive therapy with Bactrim and Flagyl-should be continued for 6 weeks (last day March 06, 2023) His Bactrim is on hold and has been put on daptomycin and cefepime(for possible UTI) Followed by Wound Care service throughout the admission Plastic surgery service also consulted- Dakin's solution wound VAC irrigation recommended and was performed Wound very gradually improving as per wound care service General surgery consulted to admission, debridement not indicated according to them Wound care discharge instructions instructions as follows: Suggest low air loss mattress Suggest follow-up with wound center Suggest: When cleansing incontinence, please use only water and washcloth, wipe away from wound dressing, not towards it. Do not use barrier spray, baby wipes no ointments in your wound dressing. Do not pull linens from under patient, gently remove with repositioning. Take care not to drag patient on bed when repositioning, lift off bed. Place mattress and max inflate mode. 2 sacral wound: Wound VAC to be changed by trained nurse per protocol using black foam. Change every Tuesday, Tuesday and Tuesday, and as needed to maintain therapy. Irrigate wound with normal saline, using a 35 cc syringe and a blunt tipped needle. Apply Skin-Prep to the periphery and for TRAC pad, allow to dry. Apply Aquacel AG to breakdown along wound periphery. Suggest ostomy ring along inferior edge. Apply drape to periphery. Fill wound with black foam, do not overfill, bridging TRAC pad to lateral hip. Seal. Set VAC to -150 mmHg continuous mode. If VAC fails, and is unable to be replaced immediately, remove all pieces of foam. Irrigate wound with saline. Feel wound with 4 pieces of Aquacel Ag, and secured with OPTi foam. Change daily and as needed for excess drainage or soiling until VAC can be replaced. To all dry areas on bilateral heels, lateral feet and toes: [place] with Betadine and allow to dry. Please piece of Kaltostat rope under right fourth toe. Cover all areas with gauze, and Kerlix, change daily. Turn at least every 2 hours. Heel boots. Will require change in position every 2 hours to prevent progress of sacral wound Very important to prevent stools from getting in contact with patient's wound 03/03/2023 We will reconsult wound care nurse PLEURAL EFFUSION-resolved FECAL INCONTINENCE (12/23) Patient was placed on rectal tube Diverting colostomy not an option at this point as patient is high risk for surgery per Cardiology SVC The sacral wound should be guarded against soiling from stool We will need to make sure that stool does not contaminate the wound Stools continue to be formed now Minimal contact with wound Continue Metamucil, cholestyramine Wound of foot/left medial heel stage 3 ulcer and several unclassifiable pressure ulcer of BLE,POA Scattered wounds noted over both feet-stable per director of staff development, currently wrapped/ offloading, soft boots Wound care nurse following wounds-wound VAC is applied Wound VAC is off now 02/06/2023 03/03/2023 Has pressure sores/ulcers with drain is involving multiple areas in the lower extremities as in picture Wound swab of has been sent for culture and sensitivity Continue with the wound care Acute systolic CHFtreated and resolved Likely secondary to volume overload in the setting of aortic stenosis, ejection fraction 35% Patient developed crackles, seen on CT chest Given Lasix IV cautiously Patient's breath sounds much improved Repeat chest x-ray showing overall effusion mostly resolved Respiratory status has been resolved, currently on room air 03/03/2023 Cardiac mireles remains stable Dysphagia S/P percutaneous endoscopic gastrostomy (PEG) tube placement Reevaluated by speech therapy advanced diet from n.p.o. to pured diet with honey thick liquids has been helping to feed the patient with his meals 3 times a day Patient has been doing well so far, no signs of aspiration PEG is still in place and the patient is also eating orally Also, nutrition has been supplemented by tube feeding Juju service on board Recommend continue: Peptamen intense VHP 1.0 for 12 hours, 8 PM-to 8 AM A-fib with RVR Elevated high sensitivity troponin likely due to demand ischemia On the night of December 07 ; patient converted to atrial fibrillation with rapid ventricular response. He was startedamiodarone drip as per cardiology recommendation Converted back to sinus rhythm on December 08 after 5 hours. Repeat echocardiogram was done; found to have moderately reduced EF of 35 to 40% with severe Rate remains controlled without any cardiac symptoms -- Continue amiodarone plus metoprolol Monitor closely Will restart Lovenox from today 02/23/2023 Hypernatremia: Resolved monitor basic metabolic profile closely H/O deep venous thrombosis: History of breakthrough DVT while on warfarin and Eliquis therapy, now on therapeutic dose Lovenox 70 mg twice daily We will continue with Lovenox as before Chronic anemia Baseline hemoglobin around 8-9 multifactorial from chronic disease Hemoglobin stable monitor CBC closely 03/03/2023-hemoglobin remains stable Aortic stenosis: Has severe aortic stenosis Monitor volume status closely History of CVA (cerebrovascular accident): History of recurrent CVA despite DAPT and anticoagulation therapy Chronic right hemiplegia/left arm paralysis/mostly nonverbal/expressive aphasia/dysphagia with PEG tube Continue statin, Plavix/Lovenox CAD (coronary artery disease) Stable continue beta-josé, Plavix, statin. ASA discontinuedpreviously due to ongoing anemia. Type 2 diabetes mellitus: A1c of 6.9 on 09/26. Glycemic pharmacy consult, sliding scale insulin. ISS 7:30 am *NURSING - PLEASE COVER CARBS FROM PUREED DIET* --Goal BSG Range: Low 110 mg/dL, High 140 mg/dL --Correction Factor: 25 mg/dL/unit --Carbohydrate ratio = 5 g/unit --BSGs ACHS if eating, q6h if npo ISS 1130, 1630 --Goal BSG Range: Low 110 mg/dL, High 150 mg/dL --Correction Factor: 35 mg/dL/unit --Carbohydrate ratio = 18 g/unit --BSGs ACHS if eating, q6h if npo If pt is NPO, do NOT hold correction factor insulin without an order ISS 1999 Goal range: 110-140 mg/dL Correction factor: 35 mg/dL/unit Carb ratio: none If carb ratio is ordered: --Give before meals based on what the patient plans to eat. --If oral intake is uncertain, may give IMMEDIATELY after food is eaten *Hazardous Waste Sort = [facility]KC HTN (hypertension) Continue meds, BP stable Reevaluated by speech therapist during the hospitalization, allowed to resume oral feeds with pured diet after discussion with patient's spouse Doing well with pured diet so far-patient's spouse feeding the patient 3 times a day Continue tube feeding in the evening-7 PM to 7 AM. Speech therapist and bakery pastry internship evaluated. -- No issues with oral feeds, or tube feeding Severe protein-calorie malnutrition: Management per above BPH with obstruction/lower urinary tract symptoms:Hagan in place- last changed 02/23/23 Continue tamsulosin. DVT prophylaxis: therapeutic Lovenox Full code Disposition Readmitted with hematuria and hyponatremia Nephrology consulted for management of hyponatremia Wound care will be continued Will need placement Admission and Anticipated Discharge Date Admission Date: March 02, 2023 Subjective 03/03/2023 The patient was seen and examined in medical telemetry unit in presence of the He was transferred back to ER from [facility] with hematuria and noted to have hyponatremia on admission He has been stable and does not seems to be in any distress Denies any significant symptoms at rest Review of Systems Review of Systems: All systems reviewed and are unremarkable except as noted below Physical Exam Physical Exam: Lying in bed comfortably Constitutional: + ill appearing and + thin Eyes: PERRL, conjunctivae normal, anicteric sclerae ENMT: external ear and nose normal, oropharynx normal Neck: trachea midline, no thyromegaly Respiratory: no respiratory distress Auscultation: + diminished lung sounds and + crackles (Minimal crackles at the bases) Cardiovascular: Rate/Rhythm: regular rate and regular rhythm; not tachycardic Heart Sounds: normal S1, normal S2 and + murmur (3/6 ESM over precordium) Extremities: no edema Gastrointestinal (Abdomen): Inspection/Auscultation: normal bowel sounds; abdomen not distended Percussion/Palpation: abdomen soft; abdomen nontender PEG tube in situ without any infection and/or inflammation Musculoskeletal: Has flexural deformities involving the extremities with atrophy of the muscles Skin: Has multiple pressure sores involving the lower extremities with huge sacral wound with osteomyelitis Neurologic: Alert and awake. Minimally conversive. Minimal movements of the extremities. Bedbound status with contracture deformities involving the extremities Lymphatic: no cervical or axillary lymphadenopathy Results & Data Results & Data Vital Signs (Past 12 Hours) Vital Signs Temp Pulse Pulse Resp BP Pulse Ox Pulse Ox 03/02/23 18:25 84 16 132/72 95 03/02/23 17:38 75 22 142/63 H 95 03/02/23 16:43 74 16 131/66 93 03/02/23 15:59 75 16 131/66 94 03/02/23 15:59 93 03/02/23 15:03 80 19 82/62 L 93 03/02/23 13:16 68 23 119/55 L 94 03/02/23 09:30 36.9 C 74 16 120/69 98 03/02/23 07:17 70 O2 Del Method O2 Del Method 03/02/23 18:25 Room Air 03/02/23 17:38 Room Air 03/02/23 16:43 Room Air 03/02/23 15:59 Room Air 03/02/23 15:59 Room Air 03/02/23 15:03 Room Air 03/02/23 13:16 Room Air 03/02/23 09:30 Room Air 03/02/23 07:17 Laboratory Results Short CBC 03/03/23 Range/Units 07:20 WBC 7.35 (4.8-10.8) K/ul Hgb 10.6 L (14.0-18.0) g/dl Hct 34.8 L (42.0-52.0) % Plt Count 336 (130-400) K/uL BMP 03/02/23 03/03/23 15:15 07:20 Sodium 127 L 130 L Potassium 4.8 4.4 Chloride 97 L 99 Carbon Dioxide 25 26 BUN 17 21 Creatinine 0.49 L 0.39 L Glucose 146 H 224 H Calcium 8.3 L 8.3 L Medications Administered Current Inpatient Medications Acetaminophen (Acetaminophen Susp 325 Mg/10.15 Ml Udc) 650 mg PO Q6H PRN PRN Reason: pain/fever Stop: 10/27/23 03:59 Amiodarone HCl (Amiodarone 200 Mg Tab) 200 mg PEG BIDM SUMA Stop: 04/01/23 07:59 Last Admin: 03/03/23 10:42 Dose: 200 mg Cholestyramine Resin (Cholestyramine Light 4 Gm Pkt) 4 gm PO BID@1000,2200 SUMA Stop: 04/01/23 09:59 Last Admin: 03/03/23 10:44 Dose: 4 gm Dextrose (Dextrose 50% 50 Ml Syringe) 25 - 50 ml IV UD PRN; Protocol PRN Reason: Hypoglycemia Protocol Stop: 04/01/23 05:48 Ferrous Sulfate (Ferrous Sulfate 325 Mg Tab) 325 mg PO QAM [facility] Stop: 04/01/23 08:59 Last Admin: 03/03/23 10:42 Dose: 325 mg Glucagon (Glucagon For Inj 1 Mg Vial) 1 mg SQ UD PRN; Protocol PRN Reason: Hypoglycemia Protocol Stop: 04/01/23 05:48 Glucose (Glucose 10 Tab/Tube) 4 - 8 tab PO UD PRN; Protocol PRN Reason: Hypoglycemia Treatment Stop: 04/01/23 05:48 Glucose (Glucose 40% Gel 15 Gm Tube) 15 - 30 gm PO UD PRN; Protocol PRN Reason: Hypoglycemia Protocol Stop: 04/01/23 05:48 Promethazine HCl (Phenergan) 6.25 mg in 50.25 mls @ 201 mls/hr IV Q6H PRN PRN Reason: Nausea And Vomiting Stop: 04/01/23 03:59 Daptomycin 450 mg/ Syringe 9 mls @ 4.5 mls/min IV Q24H [facility]MA; Protocol Stop: 03/06/23 05:59 Last Admin: 03/03/23 05:33 Dose: 4.5 mls/min Cefepime HCl 2,000 mg/ Syringe 20 mls @ 5 mls/min IV Q8H [facility]; Protocol Stop: 03/12/23 11:59 Last Admin: 03/03/23 13:54 Dose: 5 mls/min Insulin Aspart (Insulin Aspart Per Unit Charge) 0 units SC ACHS [facility] Stop: 04/01/23 07:29 Last Admin: 03/03/23 13:47 Dose: 6 units Insulin Glargine (Lantus Per Unit Charge) 5 units SC BID@0830,2000 [facility] Stop: 04/01/23 08:29 Last Admin: 03/03/23 09:55 Dose: 5 units Magnesium Oxide (Magnesium Oxide 400 Mg Tab) 400 mg PEG BID [facility] Stop: 04/01/23 08:59 Last Admin: 03/03/23 10:43 Dose: 400 mg Metronidazole (Metronidazole Susp 50mg/Ml) 500 mg PO TID [facility]; Protocol Stop: 04/13/23 08:59 Last Admin: 03/03/23 14:15 Dose: 500 mg Miconazole Nitrate (Miconazole Nitrate Powder 85 Gm) 1 appln EXT PRN PRN PRN Reason: fungal rash Stop: 04/01/23 06:26 Miscellaneous (Carbohydrates For Hypoglycemia ) 15 - 30 gm PO UD PRN PRN Reason: Hypoglycemia Protocol Stop: 04/01/23 05:48 Multivitamins/Minerals (Multi Vit W/Minerals Liquid 15 Ml Udp) 15 ml PEG QAM [facility] Stop: 04/01/23 08:59 Last Admin: 03/03/23 12:30 Dose: 15 ml Nitroglycerin (Nitroglycerin Sl 0.4 Mg/Tab Tab) 0.4 mg SL UD PRN PRN Reason: Chest Pain Stop: 04/01/23 06:26 Nutritional Formula (Peptamen Intense Vhp 1.0 [place] 1,000 Ml Bag) 1,000 ml PEG TODAY@1999 [facility]; Protocol Stop: 04/01/23 19:59 Last Admin: 03/02/23 22:08 Dose: 1,000 ml Sterile Water (Tube Feeding Water Flush) 100 ml PEG Q6H [facility] Stop: 04/01/23 06:59 Last Admin: 03/03/23 14:15 Dose: 100 ml Tamsulosin HCl (Tamsulosin Hcl 0.4 Mg Cap) 0.4 mg PO HS [facility] Stop: 04/01/23 20:59 Last Admin: 03/02/23 22:21 Dose: 0.4 mg Tamsulosin HCl (Tamsulosin Hcl 0.4 Mg Cap) 0.4 mg PEG QAM [facility] Stop: 04/01/23 08:59 Last Admin: 03/03/23 10:43 Dose: 0.4 mg
[2023-03-03] MEDS: ENOXAPARIN INJ 60 MG/0.6 ML SYR SQ SCH (17:43)
[2023-03-03] MEDS: PEPTAMEN INTENSE VHP 1.0 CAL 1,000 ML BAG PEG SCH (20:51)
[2023-03-03] MEDS: TAMSULOSIN HCL 0.4 MG CAP PO SCH (20:54)
[2023-03-04] MEDS: TUBE FEEDING WATER FLUSH PEG SCH ×5 (01:43→19:55)
[2023-03-04] MEDS: CEFEPIME 2,000 MG in SYRINGE 0 ML IV SCH ×3 (04:15→19:55)
[2023-03-04] MEDS: ENOXAPARIN INJ 60 MG/0.6 ML SYR SQ SCH ×2 (04:16→17:50)
[2023-03-04] MEDS: DAPTOmycin 450 MG in SYRINGE 0 ML IV SCH (05:27)
[2023-03-04 06:27] LABS: Basophils # (auto) 0.02 K/uL (0.00-0.20); Basophils % (auto) 0.3 %; Eosinophils % (auto) 1.5 %; Hematocrit (blood only) 33.7 % (42.0-52.0); Hemoglobin 10.6 g/dl (14.0-18.0); Immature Granulocytes # (auto) 0.02 K/uL (0.01-0.20); Immature Granulocytes % (auto) 0.3 %; Lymphocytes # (auto) 1.39 K/uL (1.20-3.40); Lymphocytes % (auto) 20.6 %; Mean Corpuscular Hemoglobin 22.4 pg (25.0-34.0); Mean Corpuscular Hgb Conc 31.5 g/dL (32.0-36.0); Mean Corpuscular Volume 71.1 fL (80.0-100.0); Mean Platelet Volume 9.6 fL (9.4-12.4); Monocytes # (auto) 0.55 K/uL (0.11-0.59); Monocytes % (auto) 8.2 %; Neutrophils # (auto) 4.66 K/uL (1.40-6.50); Neutrophils % (auto) 69.1 %; Platelet Count 332 K/uL (130-400); RDW Coefficient of Variation 17.7 % (11.5-14.5); RDW Standard Deviation 45.1 fL (36.4-46.3); Red Blood Count 4.74 M/uL (4.70-6.10); White Blood Count 6.74 K/ul (4.8-10.8)
[2023-03-04 06:28] LABS: BUN Creatinine Ratio 82.1 (10-20); Calcium 8.4 mg/dl (8.6-10.3); Creatinine Clr Calc Pharmacy 171.9 ml/min; Est GFR (Non-African American) 126.8 ml/min; Potassium 4.4 mmol/L (3.5-5.1)
[2023-03-04] MEDS: FERROUS SULFATE 325 MG TAB PO SCH (08:26)
[2023-03-04] MEDS: MULTI VIT W/MINERALS LIQUID 15 ML UDP PEG SCH (08:26)
[2023-03-04] MEDS: MAGNESIUM OXIDE 400 MG TAB PEG SCH ×2 (08:26→19:57)
[2023-03-04] MEDS: AMIODARONE 200 MG TAB PEG SCH ×2 (08:26→17:50)
[2023-03-04] MEDS: TAMSULOSIN HCL 0.4 MG CAP PO SCH (08:27)
[2023-03-04] MEDS: metroNIDAZOLE Susp 50mg/ml PO SCH ×3 (08:28→19:57)
[2023-03-04] MEDS: TAMSULOSIN HCL 0.4 MG CAP PEG SCH (08:29)
[2023-03-04] MEDS: INSULIN ASPART PER UNIT CHARGE SC SCH ×4 (09:38→19:57)
[2023-03-04] MEDS: LANTUS PER UNIT CHARGE SC SCH ×2 (09:38→19:56)
[2023-03-04] MEDS: CHOLESTYRAMINE LIGHT 4 GM PKT PO SCH ×2 (10:22→20:51)
--- NOTE | 2023-03-04 16:15 | Hospitalist Progress Note ---
Date of Service March 04, 2023 Assessment & Plan (1) Acute hyponatremia: Plan: Transfer to [facility] ER from [place] facility: (Below are the detailed hospital progress note and events.) Noted to have hyponatremia on admission with a sodium level of 1 27-1 28 Likely secondary to use of Bactrim Appreciate nephrology input and recommendation Sodium level went up to 130 as of 02/23/2023 Sodium level remains low at 129 (2) Hematuria: Plan: [place] hematuria noted in the facility Likely secondary to trauma due to Hagan catheter CT scan of the chest and pelvis did show nonspecific thickening of the bladder wall Hematuria resolved without any drop in hemoglobin We will restart Lovenox from today Discussed with the in detail No more hematuria and urine culture has been negative for any infection (3) Sacral wound: Plan: Documented below is the detailed progress note. Wound VAC has been replaced from today that is 03/04/2023 Antibiotic courses will be finished on 03/06/2023 (4) Aortic stenosis: (5) Paroxysmal atrial fibrillation: (6) Peripheral arterial disease: (7) History of CVA (cerebrovascular accident): (8) BPH with obstruction/lower urinary tract symptoms: (9) Type 2 diabetes mellitus: (10) HTN (hypertension): (11) Weakness generalized: Plan Notes from prior hospitalists 02/24 patient remains stable overall Plan of care including discharge to custodial facility discussed with patient's Ms. Downey at the bedside in detail and at length She is agreeable for patient's discharge today to SNF Called [facility] yesterday in her behalf with her permission, [facility] staff confirmed Ms. Downey is in good standing for driving since February 19 Relayed to Ms. Downey, she is happy to be able to drive again and visit Mr. Short at the custodial facility Discussed with Dr. Lew- [facility] physician, in detail and at length regarding patient's medical condition and plan of care Also discussed with OMER Espinosa regarding specific instructions to give during signout with custodial facility RN 03/02/2023 He was transferred back to the ER with hematuria and noted to have hyponatremia as above Per previous attending notes with addendum: 62-year-old male with PMH of CAD, recurrent CVA while receiving ASA and Plavix prompting initiation of warfarin, breakthrough DVT on warfarin and Eliquis currently anticoagulated with therapeutic Lovenox, T2DM, HLD, borderline severe aortic valve stenosis, bedbound status and various other comorbid diseases presented to the ED 11/17 for evaluation of fever and lethargy. SACROCOCCYGEAL OSTEOMYELITIS SACROCOCCYGEAL WOUND/DECUBITUS ULCER STAGE IV: Presented from [facility] this admission CT abd/pelvis 11/17/2022- "Sacral decubitus ulcer which extends to the underlying bone. Interval erosion of the posterior elements of L5 and the first and second coccygeal segments since CT of August 10, 2022. The findings suggest acute osteomyelitis. Associated paravertebral stranding consistent with cellulitis." s/p bone biopsy 11/22 : positive for Staph aureus MRSA. Previous cultures from [facility] grew Pseudomonas Per Dr. Young -ID specialist in [place], continue with intravenous caspofungin, daptomycin and IV Zerbaxa for a total of 6 weeks Already completed Dapto + Zebraxa x 42 days- last dose 01/05/2023 Wound culture from 01/19/2023 is growing Staph aureus MRSA, Staphylococcus aureus and bacteroids thetaiomicron Discussed with ID on-call Dr. Goss and was advised to continue Bactrim and Flagyl for current wound infection-this should be continued for 6 weeks He can have ID follow-up via telemedicine on a later date if needed Remains afebrile and will continue current suppressive therapy with Bactrim and Flagyl-should be continued for 6 weeks (last day March 06, 2023) His Bactrim is on hold and has been put on daptomycin and cefepime(for possible UTI) Followed by Wound Care service throughout the admission Plastic surgery service also consulted- Dakin's solution wound VAC irrigation recommended and was performed Wound very gradually improving as per wound care service General surgery consulted to admission, debridement not indicated according to them Wound care discharge instructions instructions as follows: Suggest low air loss mattress Suggest follow-up with wound center Suggest: When cleansing incontinence, please use only water and washcloth, wipe away from wound dressing, not towards it. Do not use barrier spray, baby wipes no ointments in your wound dressing. Do not pull linens from under patient, gently remove with repositioning. Take care not to drag patient on bed when repositioning, lift off bed. Place mattress and max inflate mode. 2 sacral wound: Wound VAC to be changed by trained nurse per protocol using black foam. Change every Tuesday, Tuesday and Tuesday, and as needed to maintain therapy. Irrigate wound with normal saline, using a 35 cc syringe and a blunt tipped needle. Apply Skin-Prep to the periphery and for TRAC pad, allow to dry. Apply Aquacel AG to breakdown along wound periphery. Suggest ostomy ring along inferior edge. Apply drape to periphery. Fill wound with black foam, do not overfill, bridging TRAC pad to lateral hip. Seal. Set VAC to -150 mmHg continuous mode. If VAC fails, and is unable to be replaced immediately, remove all pieces of foam. Irrigate wound with saline. Feel wound with 4 pieces of Aquacel Ag, and secured with OPTi foam. Change daily and as needed for excess drainage or soiling until VAC can be replaced. To all dry areas on bilateral heels, lateral feet and toes: [place] with Betadine and allow to dry. Please piece of Kaltostat rope under right fourth toe. Cover all areas with gauze, and Kerlix, change daily. Turn at least every 2 hours. Heel boots. Will require change in position every 2 hours to prevent progress of sacral wound Very important to prevent stools from getting in contact with patient's wound 03/03/2023 We will reconsult wound care nurse PLEURAL EFFUSION-resolved FECAL INCONTINENCE (12/23) Patient was placed on rectal tube Diverting colostomy not an option at this point as patient is high risk for surgery per Cardiology SVC The sacral wound should be guarded against soiling from stool We will need to make sure that stool does not contaminate the wound Stools continue to be formed now Minimal contact with wound Continue Metamucil, cholestyramine Wound of foot/left medial heel stage 3 ulcer and several unclassifiable pressure ulcer of BLE,POA Scattered wounds noted over both feet-stable per medical staff services coordinator, currently wrapped/ offloading, soft boots Wound care nurse following wounds-wound VAC is applied Wound VAC is off now 02/06/2023 03/03/2023 Has pressure sores/ulcers with drain is involving multiple areas in the lower extremities as in picture Wound swab of has been sent for culture and sensitivity Continue with the wound care Acute systolic CHFtreated and resolved Likely secondary to volume overload in the setting of aortic stenosis, ejection fraction 35% Patient developed crackles, seen on CT chest Given Lasix IV cautiously Patient's breath sounds much improved Repeat chest x-ray showing overall effusion mostly resolved Respiratory status has been resolved, currently on room air 03/03/2023 Cardiac mireles remains stable Dysphagia S/P percutaneous endoscopic gastrostomy (PEG) tube placement Reevaluated by speech therapy advanced diet from n.p.o. to pured diet with honey thick liquids has been helping to feed the patient with his meals 3 times a day Patient has been doing well so far, no signs of aspiration PEG is still in place and the patient is also eating orally Also, nutrition has been supplemented by tube feeding Juju service on board Recommend continue: Peptamen intense VHP 1.0 for 12 hours, 8 PM-to 8 AM A-fib with RVR Elevated high sensitivity troponin likely due to demand ischemia On the night of December 07 ; patient converted to atrial fibrillation with rapid ventricular response. He was startedamiodarone drip as per cardiology recommendation Converted back to sinus rhythm on December 08 after 5 hours. Repeat echocardiogram was done; found to have moderately reduced EF of 35 to 40% with severe Rate remains controlled without any cardiac symptoms -- Continue amiodarone plus metoprolol Monitor closely Will restart Lovenox from today 02/23/2023 Hypernatremia: Resolved monitor basic metabolic profile closely H/O deep venous thrombosis: History of breakthrough DVT while on warfarin and Eliquis therapy, now on therapeutic dose Lovenox 70 mg twice daily We will continue with Lovenox as before Chronic anemia Baseline hemoglobin around 8-9 multifactorial from chronic disease Hemoglobin stable monitor CBC closely 03/03/2023-hemoglobin remains stable Aortic stenosis: Has severe aortic stenosis Monitor volume status closely History of CVA (cerebrovascular accident): History of recurrent CVA despite DAPT and anticoagulation therapy Chronic right hemiplegia/left arm paralysis/mostly nonverbal/expressive aphasia/dysphagia with PEG tube Continue statin, Plavix/Lovenox CAD (coronary artery disease) Stable continue beta-josé, Plavix, statin. ASA discontinuedpreviously due to ongoing anemia. Type 2 diabetes mellitus: A1c of 6.9 on 09/26. Glycemic pharmacy consult, sliding scale insulin. ISS 7:30 am *NURSING - PLEASE COVER CARBS FROM PUREED DIET* --Goal BSG Range: Low 110 mg/dL, High 140 mg/dL --Correction Factor: 25 mg/dL/unit --Carbohydrate ratio = 5 g/unit --BSGs ACHS if eating, q6h if npo ISS 1130, 1630 --Goal BSG Range: Low 110 mg/dL, High 150 mg/dL --Correction Factor: 35 mg/dL/unit --Carbohydrate ratio = 18 g/unit --BSGs ACHS if eating, q6h if npo If pt is NPO, do NOT hold correction factor insulin without an order ISS 2000 Goal range: 110-140 mg/dL Correction factor: 35 mg/dL/unit Carb ratio: none If carb ratio is ordered: --Give before meals based on what the patient plans to eat. --If oral intake is uncertain, may give IMMEDIATELY after food is eaten *Hazardous Waste Sort = [facility] HTN (hypertension) Continue meds, BP stable Reevaluated by speech therapist during the hospitalization, allowed to resume o ral feeds with pured diet after discussion with patient's spouse Doing well with pured diet so far-patient's spouse feeding the patient 3 times a day Continue tube feeding in the evening-7 PM to 7 AM. Speech therapist and gas operations superintendent evaluated. -- No issues with oral feeds, or tube feeding Severe protein-calorie malnutrition: Management per above BPH with obstruction/lower urinary tract symptoms:Hagan in place- last changed 02/23/23 Continue tamsulosin. DVT prophylaxis: therapeutic Lovenox Full code Disposition Readmitted with hematuria and hyponatremia Nephrology consulted for management of hyponatremia Wound care will be continued Will need placement Admission and Anticipated Discharge Date Admission Date: March 02, 2023 Subjective 03/03/2023 The patient was seen and examined in medical telemetry unit in presence of the He was transferred back to ER from [facility] with hematuria and noted to have hyponatremia on admission He has been stable and does not seems to be in any distress Denies any significant symptoms at rest 03/04/2023 The patient was seen and examined in medical telemetry unit in presence of the He remains stable and does not have any acute distress at rest Review of Systems Review of Systems: All systems reviewed and are unremarkable except as noted below Physical Exam Physical Exam: Lying in bed comfortably Constitutional: + ill appearing and + thin Eyes: PERRL, conjunctivae normal, anicteric sclerae ENMT: external ear and nose normal, oropharynx normal Neck: trachea midline, no thyromegaly Respiratory: no respiratory distress Auscultation: + diminished lung sounds and + crackles (Minimal crackles at the bases) Cardiovascular: Rate/Rhythm: regular rate and regular rhythm; not tachycardic Heart Sounds: normal S1, normal S2 and + murmur (3/6 ESM over precordium) Extremities: no edema Gastrointestinal (Abdomen): Inspection/Auscultation: normal bowel sounds; abdomen not distended Percussion/Palpation: abdomen soft; abdomen nontender Musculoskeletal: Extremities: + muscle atrophy; + extremities abnormal to inspection (Has muscle atrophy with flexural deformities involving the extremities) Neurologic: awake (Minimal communication) Bedbound status Lymphatic: no cervical or axillary lymphadenopathy Results & Data Results & Data Vital Signs (Past 12 Hours) Vital Signs Temp Pulse Pulse Resp BP Pulse Ox O2 Del Method 03/04/23 15:42 36.6 C 75 20 135/73 96 Room Air 03/04/23 11:49 36.9 C 79 16 151/65 H 96 Room Air 03/04/23 08:00 Room Air 03/04/23 07:38 36.8 C 84 16 158/76 H 98 Room Air 03/04/23 06:59 81 Laboratory Results Short CBC 03/04/23 Range/Units 05:40 WBC 6.74 (4.8-10.8) K/ul Hgb 10.6 L (14.0-18.0) g/dl Hct 33.7 L (42.0-52.0) % Plt Count 332 (130-400) K/uL BMP 03/04/23 05:40 Sodium 129 L Potassium 4.4 Chloride 99 Carbon Dioxide 25 BUN 32 H Creatinine 0.39 L Glucose 231 H Calcium 8.4 L Medications Administered Current Inpatient Medications Acetaminophen (Acetaminophen Susp 325 Mg/10.15 Ml Udc) 650 mg PO Q6H PRN PRN Reason: pain/fever Stop: 04/01/23 03:59 Amiodarone HCl (Amiodarone 200 Mg Tab) 200 mg PEG BIDM [facility] Stop: 04/01/23 07:59 Last Admin: 03/04/23 08:26 Dose: 200 mg Cholestyramine Resin (Cholestyramine Light 4 Gm Pkt) 4 gm PO BID@1000,2200 [facility] Stop: 04/01/23 09:59 Last Admin: 03/04/23 10:22 Dose: 4 gm Dextrose (Dextrose 50% 50 Ml Syringe) 25 - 50 ml IV UD PRN; Protocol PRN Reason: Hypoglycemia Protocol Stop: 04/01/23 05:48 Enoxaparin Sodium (Enoxaparin Inj 60 Mg/0.6 Ml Syr) 60 mg SQ Q12H [facility] Stop: 04/02/23 16:14 Last Admin: 03/04/23 04:16 Dose: 60 mg Ferrous Sulfate (Ferrous Sulfate 325 Mg Tab) 325 mg PO QAM [facility] Stop: 04/01/23 08:59 Last Admin: 03/04/23 08:26 Dose: 325 mg Glucagon (Glucagon For Inj 1 Mg Vial) 1 mg SQ UD PRN; Protocol PRN Reason: Hypoglycemia Protocol Stop: 04/01/23 05:48 Glucose (Glucose 10 Tab/Tube) 4 - 8 tab PO UD PRN; Protocol PRN Reason: Hypoglycemia Treatment Stop: 04/01/23 05:48 Glucose (Glucose 40% Gel 15 Gm Tube) 15 - 30 gm PO UD PRN; Protocol PRN Reason: Hypoglycemia Protocol Stop: 04/01/23 05:48 Promethazine HCl (Phenergan) 6.25 mg in 50.25 mls @ 201 mls/hr IV Q6H PRN PRN Reason: Nausea And Vomiting Stop: 04/01/23 03:59 Daptomycin 450 mg/ Syringe 9 mls @ 4.5 mls/min IV Q24H [facility]; Protocol Stop: 03/06/23 05:59 Last Admin: 03/04/23 05:27 Dose: 4.5 mls/min Cefepime HCl 2,000 mg/ Syringe 20 mls @ 5 mls/min IV Q8H [facility]; Protocol Stop: 03/12/23 11:59 Last Admin: 03/04/23 13:15 Dose: 5 mls/min Insulin Aspart (Insulin Aspart Per Unit Charge) 0 units SC ACHS [facility] Stop: 04/01/23 07:29 Last Admin: 03/04/23 13:15 Dose: 10 units Insulin Glargine (Lantus Per Unit Charge) 5 units SC BID@0830,2000 [facility] Stop: 04/01/23 08:29 Last Admin: 03/04/23 09:38 Dose: 5 units Magnesium Oxide (Magnesium Oxide 400 Mg Tab) 400 mg PEG BID [facility] Stop: 04/01/23 08:59 Last Admin: 03/04/23 08:26 Dose: 400 mg Metronidazole (Metronidazole Susp 50mg/Ml) 500 mg PO TID [facility]; Protocol Stop: 04/13/23 08:59 Last Admin: 03/04/23 08:28 Dose: 500 mg Miconazole Nitrate (Miconazole Nitrate Powder 85 Gm) 1 appln EXT PRN PRN PRN Reason: fungal rash Stop: 04/01/23 06:26 Miscellaneous (Carbohydrates For Hypoglycemia ) 15 - 30 gm PO UD PRN PRN Reason: Hypoglycemia Protocol Stop: 04/01/23 05:48 Multivitamins/Minerals (Multi Vit W/Minerals Liquid 15 Ml Udp) 15 ml PEG QAM [facility] Stop: 04/01/23 08:59 Last Admin: 03/04/23 08:26 Dose: 15 ml Nitroglycerin (Nitroglycerin Sl 0.4 Mg/Tab Tab) 0.4 mg SL UD PRN PRN Reason: Chest Pain Stop: 04/01/23 06:26 Nutritional Formula (Peptamen Intense Vhp 1.0 [place] 1,000 Ml Bag) 1,000 ml PEG TODAY@2000 [facility]; Protocol Stop: 04/01/23 19:59 Last Admin: 03/03/23 20:51 Dose: 1,000 ml Sterile Water (Tube Feeding Water Flush) 100 ml PEG Q6H [facility] Stop: 04/01/23 06:59 Last Admin: 03/04/23 13:37 Dose: 100 ml Tamsulosin HCl (Tamsulosin Hcl 0.4 Mg Cap) 0.4 mg PO HS [facility] Stop: 04/01/23 20:59 Last Admin: 03/04/23 08:27 Dose: 0.4 mg Tamsulosin HCl (Tamsulosin Hcl 0.4 Mg Cap) 0.4 mg PEG QAM [facility] Stop: 04/01/23 08:59 Last Admin: 03/04/23 08:29 Dose: 0.4 mg
--- NOTE | 2023-03-04 16:57 | Nephrology Progress Note ---
Date of Service March 04, 2023 Assessment & Plan (1) Hyponatremia: Plan: essentially plateau'd exacerbation of chronic mild hyponatremia with sodium 129 today; K 4.4 which is acceptable. Pt had issues w/ hyponatremia during recent admission here > on review of labs 01/30-02/24 sNa ranges 131-133. history of recent hyponatremia/hyperkalemia as OP, which may well be c/w bactrim therapy now stopped. presented w/ sNa 128 at [facility] 03/02 [place] and 127 at 0800 w/ gradual downtrend over several previous days difficult, if not impossible to evaluate for symptoms in this clinical setting; no evidence of confusion or malaise; no hx of n/v no overloaded on exam, by hx, or on imaging; per pt had been eating/drinking well at outside facility > ? diet w/ significantly lower solute/lower protein content -goal sNa is no more than 136 by tomorrow am he is autodiuresing w/ resumption of higher protein diet and holding bactrim -on dapto and cefepime daily at least >>certainly not volume overloaded and may be a bit dry since he is certainly getting adiequate solute in his diet on high protein regimen WILL do cautious trial of increasing FR flushes to 150 ml q6h (startign this evening) and 1/2 L NS at 80 mL /hourly to see if he responds as prerenal or SIADH type picture no FR since he is on liquid diet currently; no indication for lasix, salt tabs, or urea at this time but monitor for need strict I/O daily BMP at this point Admission and Anticipated Discharge Date Admission Date: March 02, 2023 Subjective no interval events. seen on am rounds. Review of Systems Review of Systems: Other (limited by pt ability to communicate; obtained from ) Physical Exam Constitutional: well developed, average body habitus, + physical limitations, + frail appearing and cooperative; no acute distress Eyes: EOM intact bilaterally ENMT: Ears: no external ear abnormality Nose: no external nose abnormality Mouth: + dry oral mucous membranes Neck: no nuchal rigidity Respiratory: normal respiratory effort Auscultation: + diminished lung sounds Cardiovascular: Rate/Rhythm: regular rate and regular rhythm Heart Sounds: + murmur Extremities: no edema Gastrointestinal (Abdomen): Inspection/Auscultation: normal bowel sounds Percussion/Palpation: abdomen soft (PEG present); abdomen nontender Musculoskeletal: Extremities: + limited ROM of extremities, + abnormal strength and + abnormal muscle tone Skin: no rashes, warm and dry (decubitous not examined) Results & Data Vital Signs (Past 12 Hours) Vital Signs Temp Pulse Pulse Resp BP Pulse Ox O2 Del Method 03/04/23 15:42 36.6 C 75 20 135/73 96 Room Air 03/04/23 11:49 36.9 C 79 16 151/65 H 96 Room Air 03/04/23 08:00 Room Air 03/04/23 07:38 36.8 C 84 16 158/76 H 98 Room Air 03/04/23 06:59 81 Laboratory Results 03/04/23 05:40 03/04/23 05:40
[2023-03-04] MEDS: SODIUM CHLORIDE 0.9% 500 ML IV SCH (19:34)
[2023-03-04] MEDS: PEPTAMEN INTENSE VHP 1.0 CAL 1,000 ML BAG PEG SCH (20:50)
[2023-03-05] MEDS: SODIUM CHLORIDE 0.9% 500 ML IV SCH ×2 (00:09→05:26)
[2023-03-05] MEDS: TUBE FEEDING WATER FLUSH PEG SCH ×4 (01:47→18:02)
[2023-03-05] MEDS: ENOXAPARIN INJ 60 MG/0.6 ML SYR SQ SCH ×2 (05:18→18:01)
[2023-03-05] MEDS: CEFEPIME 2,000 MG in SYRINGE 0 ML IV SCH ×3 (05:19→20:13)
[2023-03-05] MEDS: DAPTOmycin 450 MG in SYRINGE 0 ML IV SCH (05:19)
[2023-03-05 07:57] LABS: Anion Gap 5 (3-11); BUN Creatinine Ratio 96.9 (10-20); Blood Urea Nitrogen 31 mg/dl (6-23); Calcium 8.2 mg/dl (8.6-10.3); Carbon Dioxide 25 mmol/L (21-32); Chloride 101 mmol/L (98-107); Creatinine Clr Calc Pharmacy 215.1 ml/min; Est GFR (African American) > 150.0 ml/min; Est GFR (Non-African American) 137.6 ml/min; Glucose 210 mg/dl (70-99(Fasting)); Magnesium 1.5 mg/dl (1.7-2.4); Potassium 4.3 mmol/L (3.5-5.1); Sodium 131 mmol/L (136-145)
[2023-03-05] MEDS: TAMSULOSIN HCL 0.4 MG CAP PEG SCH (08:31)
[2023-03-05] MEDS: MAGNESIUM OXIDE 400 MG TAB PEG SCH ×2 (08:31→20:13)
[2023-03-05] MEDS: AMIODARONE 200 MG TAB PEG SCH ×2 (08:31→18:01)
[2023-03-05] MEDS: FERROUS SULFATE 325 MG TAB PO SCH (08:32)
[2023-03-05] MEDS: MULTI VIT W/MINERALS LIQUID 15 ML UDP PEG SCH (08:32)
[2023-03-05] MEDS: INSULIN ASPART PER UNIT CHARGE SC SCH ×4 (09:19→20:31)
[2023-03-05] MEDS: metroNIDAZOLE Susp 50mg/ml PO SCH ×3 (09:20→20:13)
[2023-03-05] MEDS: LANTUS PER UNIT CHARGE SC SCH ×2 (09:20→20:16)
[2023-03-05] MEDS: MAGNESIUM SULFATE / D5W 1 GM/100 ML BAG IV SCH ×2 (09:21→10:51)
[2023-03-05] MEDS: CHOLESTYRAMINE LIGHT 4 GM PKT PO SCH ×2 (10:50→20:14)
[2023-03-05] MEDS: SODIUM CHLORIDE 0.9% 1,000 ML IV SCH (11:50)
--- NOTE | 2023-03-05 12:25 | Nephrology Progress Note ---
Date of Service March 05, 2023 Assessment & Plan (1) Hyponatremia: Plan: essentially plateau'd exacerbation of chronic mild hyponatremia Pt had issues w/ hyponatremia during recent admission here > on review of labs 01/30-02/24 sNa ranges 131-133. history of recent hyponatremia/hyperkalemia as OP, which may well be c/w bactrim therapy now stopped. presented w/ sNa 128 at [facility] 03/02 [place] and 127 at 0800 w/ gradual downtrend over several previous days difficult, if not impossible to evaluate for symptoms in this clinical setting; no evidence of confusion or malaise; no hx of n/v no overloaded on exam, by hx, or on imaging; per pt had been eating/drinki ng well at outside facility > ? diet w/ significantly lower solute/lower protein content -he is autodiuresing w/ resumption of higher protein diet and holding bactrim - getting adiequate solute in his diet on high protein regimen - Sodium improved with trial of increasing FR flushes to 150 ml q6h (startign this evening) and 1/2 L NS at 80 mL /hourly-- Continue thsi for one more day. no FR since he is on liquid diet currently; no indication for lasix, salt tabs, or urea at this time but monitor for need strict I/O Daily BMP at this point Admission and Anticipated Discharge Date Admission Date: March 02, 2023 Subjective no interval events. seen on am rounds. Review of Systems Review of Systems: All systems reviewed & are unremarkable except as noted in HPI & below Physical Exam Physical Exam: Genaral -well developed, average body habitus, + physical limitations, + frail appearing and cooperative; no acute distress Respiratory: Bilateral diminished breath sounds. Cardiovascular: RRR, + murmur,: no JVD or carotid bruit Chest: normal inspection of chest Abdomen: normal bowel sounds, soft, nontender, no hepatosplenomegaly Musculoskeletal: no cyanosis or clubbing. Skin: no rashes, warm and dry normal turgor Results & Data Vital Signs (Past 12 Hours) Vital Signs Temp Pulse Resp BP Pulse Ox O2 Del Method 03/05/23 11:31 36.7 C 81 17 92/55 L 99 Room Air 03/05/23 07:24 36.7 C 75 18 145/74 H 97 Room Air 03/05/23 05:15 37.0 C 73 20 130/60 97 Room Air Laboratory Results 03/04/23 05:40 03/05/23 07:15
[2023-03-05] MEDS: FERROUS SULFATE 325 MG/7.4 ML UDP PO SCH (13:28)
--- NOTE | 2023-03-05 15:47 | Hospitalist Progress Note ---
Date of Service March 05, 2023 Assessment & Plan (1) Acute hyponatremia: Plan: Transfer to [facility] from [facility] facility: (Below are the detailed hospital progress note and events.) Noted to have hyponatremia on admission with a sodium level of 1 27-1 28 Likely secondary to use of Bactrim Appreciate nephrology input and recommendation Sodium level went up to 130 as of 02/23/2023 Sodium level remains low at 129 Sodium level is up to 131 today-get a small amount of intravenous normal saline and will monitor tomorrow Urine culture came back negative for any infection Right heel wound culture showed Corynebacterium species He will be finishing antibiotic tomorrow there is 03/06/2023 as per the ID recommendation before (2) Hematuria: Plan: [place] hematuria noted in the facility Likely secondary to trauma due to Hagan catheter CT scan of the chest and pelvis did show nonspecific thickening of the bladder wall Hematuria resolved without any drop in hemoglobin We will restart Lovenox from today Discussed with the in detail Urine culture came back negative for any infection No more hematuria and urine culture has been negative for any infection (3) Sacral wound: Plan: Stage IV sacral decubiti POA Documented below is the detailed progress note. Wound VAC has been replaced from today that is 03/04/2023 Antibiotic courses will be finished on 03/06/2023 (4) Aortic stenosis: (5) Paroxysmal atrial fibrillation: (6) Peripheral arterial disease: (7) History of CVA (cerebrovascular accident): (8) BPH with obstruction/lower urinary tract symptoms: (9) Type 2 diabetes mellitus: (10) HTN (hypertension): (11) Weakness generalized: Plan Notes from prior hospitalists 02/24 patient remains stable overall Plan of care including discharge to shelter facility discussed with patient's Ms. Downey at the bedside in detail and at length She is agreeable for patient's discharge today to SNF Called [facility] yesterday in her behalf with her permission, [facility] staff confirmed Ms. Downey is in good standing for driving since February 19 Relayed to Ms. Downey, she is happy to be able to drive again and visit Mr. Short at the shelter facility Discussed with Dr. Lew- [facility] physician, in detail and at length regarding patient's medical condition and plan of care Also discussed with OMER Espinosa regarding specific instructions to give during signout with shelter facility RN 03/02/2023 He was transferred back to the ER with hematuria and noted to have hyponatremia as above Per previous attending notes with addendum: 62-year-old male with PMH of CAD, recurrent CVA while receiving ASA and Plavix prompting initiation of warfarin, breakthrough DVT on warfarin and Eliquis currently anticoagulated with therapeutic Lovenox, T2DM, HLD, borderline severe aortic valve stenosis, bedbound status and various other comorbid diseases presented to the ED 11/17 for evaluation of fever and lethargy. SACROCOCCYGEAL OSTEOMYELITIS SACROCOCCYGEAL WOUND/DECUBITUS ULCER STAGE IV: Presented from [facility] admission CT abd/pelvis 11/17/2022- "Sacral decubitus ulcer which extends to the underlying bone. Interval erosion of the posterior elements of L5 and the first and second coccygeal segments since CT of August 10, 2022. The findings suggest acute osteomyelitis. Associated paravertebral stranding consistent with cellulitis." s/p bone biopsy 11/22 : positive for Staph aureus MRSA. Previous cultures from [facility] grew Pseudomonas Per Dr. Young -ID specialist in [place], continue with intravenous caspofungin, daptomycin and IV Zerbaxa for a total of 6 weeks Already completed Dapto + Zebraxa x 42 days- last dose 01/05/2023 Wound culture from 01/19/2023 is growing Staph aureus MRSA, Staphylococcus aureus and bacteroids thetaiomicron Discussed with ID on-call Dr. Goss and was advised to continue Bactrim and Flagyl for current wound infection-this should be continued for 6 weeks He can have ID follow-up via telemedicine on a later date if needed 03/02/2023 Remains afebrile and will continue current suppressive therapy with Bactrim and Flagyl-should be continued for 6 weeks (last day March 06, 2023) His Bactrim is on hold and has been put on daptomycin and cefepime(for possible UTI) Urine culture came back negative for any infection Wound culture is growing Corynebacterium species Last day of antibiotic will be tomorrow Followed by Wound Care service throughout the admission Plastic surgery service also consulted- Dakin's solution wound VAC irrigation recommended and was performed Wound very gradually improving as per wound care service General surgery consulted to admission, debridement not indicated according to them Wound care discharge instructions instructions as follows: Suggest low air loss mattress Suggest follow-up with wound center Suggest: When cleansing incontinence, please use only water and washcloth, wipe away from wound dressing, not towards it. Do not use barrier spray, baby wipes no ointments in your wound dressing. Do not pull linens from under patient, gently remove with repositioning. Take care not to drag patient on bed when repositioning, lift off bed. Place mattress and max inflate mode. 2 sacral wound: Wound VAC to be changed by trained nurse per protocol using black foam. Change every Tuesday, Tuesday and Tuesday, and as needed to maintain therapy. Irrigate wound with normal saline, using a 35 cc syringe and a blunt tipped needle. Apply Skin-Prep to the periphery and for TRAC pad, allow to dry. Apply Aquacel AG to breakdown along wound periphery. Suggest ostomy ring along inferior edge. Apply drape to periphery. Fill wound with black foam, do not overfill, bridging TRAC pad to lateral hip. Seal. Set VAC to -150 mmHg continuous mode. If VAC fails, and is unable to be replaced immediately, remove all pieces of foam. Irrigate wound with saline. Feel wound with 4 pieces of Aquacel Ag, and secured with OPTi foam. Change daily and as needed for excess drainage or soiling until VAC can be replaced. To all dry areas on bilateral heels, lateral feet and toes: [place] with Betadine and allow to dry. Please piece of Kaltostat rope under right fourth toe. Cover all areas with gauze, and Kerlix, change daily. Turn at least every 2 hours. Heel boots. Will require change in position every 2 hours to prevent progress of sacral wo und Very important to prevent stools from getting in contact with patient's wound 03/03/2023 We will reconsult wound care nurse PLEURAL EFFUSION-resolved FECAL INCONTINENCE (12/23) Patient was placed on rectal tube Diverting colostomy not an option at this point as patient is high risk for surgery per Cardiology [facility] The sacral wound should be guarded against soiling from stool We will need to make sure that stool does not contaminate the wound Stools continue to be formed now Minimal contact with wound Continue Metamucil, cholestyramine Wound of foot/left medial heel stage 3 ulcer and several unclassifiable pressure ulcer of BLE,POA Scattered wounds noted over both feet-stable per staff anesthetist, currently wrapped/ offloading, soft boots Wound care nurse following wounds-wound VAC is applied Wound VAC is off now 02/06/2023 03/03/2023 Has pressure sores/ulcers with drain is involving multiple areas in the lower extremities as in picture Wound swab of has been sent for culture and sensitivity Continue with the wound care Acute systolic CHFtreated and resolved Likely secondary to volume overload in the setting of aortic stenosis, ejection fraction 35% Patient developed crackles, seen on CT chest Given Lasix IV cautiously Patient's breath sounds much improved Repeat chest x-ray showing overall effusion mostly resolved Respiratory status has been resolved, currently on room air 03/03/2023 Cardiac mireles remains stable Dysphagia S/P percutaneous endoscopic gastrostomy (PEG) tube placement Reevaluated by speech therapy advanced diet from n.p.o. to pured diet with honey thick liquids has been helping to feed the patient with his meals 3 times a day Patient has been doing well so far, no signs of aspiration PEG is still in place and the patient is also eating orally Also, nutrition has been supplemented by tube feeding Juju service on board Recommend continue: Peptamen intense VHP 1.0 for 12 hours, 8 PM-to 8 AM A-fib with RVR Elevated high sensitivity troponin likely due to demand ischemia On the night of December 07 ; patient converted to atrial fibrillation with rapid ventricular response. He was startedamiodarone drip as per cardiology recommendation Converted back to sinus rhythm on December 08 after 5 hours. Repeat echocardiogram was done; found to have moderately reduced EF of 35 to 40% with severe Rate remains controlled without any cardiac symptoms -- Continue amiodarone plus metoprolol Monitor closely Will restart Lovenox from today 02/23/2023 Hypernatremia: Resolved monitor basic metabolic profile closely H/O deep venous thrombosis: History of breakthrough DVT while on warfarin and Eliquis therapy, now on therapeutic dose Lovenox 70 mg twice daily We will continue with Lovenox as before Chronic anemia Baseline hemoglobin around 8-9 multifactorial from chronic disease Hemoglobin stable monitor CBC closely 03/03/2023-hemoglobin remains stable Aortic stenosis: Has severe aortic stenosis Monitor volume status closely History of CVA (cerebrovascular accident): History of recurrent CVA despite DAPT and anticoagulation therapy Chronic right hemiplegia/left arm paralysis/mostly nonverbal/expressive aphasia/dysphagia with PEG tube Continue statin, Plavix/Lovenox CAD (coronary artery disease) Stable continue beta-josé, Plavix, statin. ASA discontinuedpreviously due to ongoing anemia. Type 2 diabetes mellitus: A1c of 6.9 on 09/26. Glycemic pharmacy consult, sliding scale insulin. ISS 7:30 am *NURSING - PLEASE COVER CARBS FROM PUREED DIET* --Goal BSG Range: Low 110 mg/dL, High 140 mg/dL --Correction Factor: 25 mg/dL/unit --Carbohydrate ratio = 5 g/unit --BSGs ACHS if eating, q6h if npo ISS 1130, 1630 --Goal BSG Range: Low 110 mg/dL, High 150 mg/dL --Correction Factor: 35 mg/dL/unit --Carbohydrate ratio = 18 g/unit --BSGs ACHS if eating, q6h if npo If pt is NPO, do NOT hold correction factor insulin without an order ISS 2000 Goal range: 110-140 mg/dL Correction factor: 35 mg/dL/unit Carb ratio: none If carb ratio is ordered: --Give before meals based on what the patient plans to eat. --If oral intake is uncertain, may give IMMEDIATELY after food is eaten *Hazardous Waste Sort = [facility]KC HTN (hypertension) Continue meds, BP stable Reevaluated by speech therapist during the hospitalization, allowed to resume oral feeds with pured diet after discussion with patient's spouse Doing well with pured diet so far-patient's spouse feeding the patient 3 times a day Continue tube feeding in the evening-7 PM to 7 AM. Speech therapist and window air conditioner installer evaluated. -- No issues with oral feeds, or tube feeding Severe protein-calorie malnutrition: Management per above BPH with obstruction/lower urinary tract symptoms:Hagan in place- last changed 02/23/23 Continue tamsulosin. DVT prophylaxis: therapeutic Lovenox Full code Disposition Readmitted with hematuria and hyponatremia Nephrology consulted for management of hyponatremia Wound care will be continued Will need placement Admission and Anticipated Discharge Date Admission Date: March 02, 2023 Subjective 03/03/2023 The patient was seen and examined in medical telemetry unit in presence of the He was transferred back to ER from [facility] with hematuria and noted to have hyponatremia on admission He has been stable and does not seems to be in any distress Denies any significant symptoms at rest 03/04/2023 The patient was seen and examined in medical telemetry unit in presence of the He remains stable and does not have any acute distress at rest 03/05/2023 The patient was seen and examined in medical telemetry unit in presence of the He remains stable without any acute distress Review of Systems Review of Systems: All systems reviewed and are unremarkable except as noted below Physical Exam Physical Exam: Lying in bed comfortably Constitutional: + ill appearing and + thin Eyes: PERRL, conjunctivae normal, anicteric sclerae ENMT: external ear and nose normal, oropharynx normal Neck: trachea midline, no thyromegaly Respiratory: no respiratory distress Auscultation: + diminished lung sounds and + crackles (Minimal crackles at the bases) Cardiovascular: Rate/Rhythm: regular rate and regular rhythm; not tachycardic Heart Sounds: normal S1, normal S2 and + murmur (3/6 ESM over precordium) Extremities: no edema Gastrointestinal (Abdomen): Inspection/Auscultation: normal bowel sounds; abdomen not distended Percussion/Palpation: abdomen soft; abdomen nontender Musculoskeletal: Extremities: + muscle atrophy; + extremities abnormal to inspection (Has muscle atrophy with flexural deformities involving the extremities) Neurologic: awake (Minimal communication) Lymphatic: no cervical or axillary lymphadenopathy Results & Data Results & Data Vital Signs (Past 12 Hours) Vital Signs Temp Pulse Resp BP Pulse Ox O2 Del Method 03/05/23 15:05 36.6 C 79 15 137/71 97 Room Air 03/05/23 11:31 36.7 C 81 17 92/55 L 99 Room Air 03/05/23 07:24 36.7 C 75 18 145/74 H 97 Room Air 03/05/23 05:15 37.0 C 73 20 130/60 97 Room Air Laboratory Results [facility] 03/05/23 07:15 Sodium 131 L Potassium 4.3 Chloride 101 Carbon Dioxide 25 BUN 31 H Creatinine 0.32 L Glucose 210 H Calcium 8.2 L Medications Administered Current Inpatient Medications Acetaminophen (Acetaminophen Susp 325 Mg/10.15 Ml Udc) 650 mg PO Q6H PRN PRN Reason: pain/fever Stop: 04/01/23 03:59 Amiodarone HCl (Amiodarone 200 Mg Tab) 200 mg PEG BIDM SUMA Stop: 04/01/23 07:59 Last Admin: 03/05/23 08:31 Dose: 200 mg Cholestyramine Resin (Cholestyramine Light 4 Gm Pkt) 4 gm PO BID@1000,2200 [facility] Stop: 04/01/23 09:59 Last Admin: 03/05/23 10:50 Dose: 4 gm Dextrose (Dextrose 50% 50 Ml Syringe) 25 - 50 ml IV UD PRN; Protocol PRN Reason: Hypoglycemia Protocol Stop: 04/01/23 05:48 Enoxaparin Sodium (Enoxaparin Inj 60 Mg/0.6 Ml Syr) 60 mg SQ Q12H [facility] Stop: 04/02/23 16:14 Last Admin: 03/05/23 05:18 Dose: 60 mg Ferrous Sulfate (Ferrous Sulfate 325 Mg/7.4 Ml Udp) 325 mg PO QAM [facility] Stop: 04/04/23 10:59 Last Admin: 03/05/23 13:28 Dose: 325 mg Glucagon (Glucagon For Inj 1 Mg Vial) 1 mg SQ UD PRN; Protocol PRN Reason: Hypoglycemia Protocol Stop: 04/01/23 05:48 Glucose (Glucose 10 Tab/Tube) 4 - 8 tab PO UD PRN; Protocol PRN Reason: Hypoglycemia Treatment Stop: 04/01/23 05:48 Glucose (Glucose 40% Gel 15 Gm Tube) 15 - 30 gm PO UD PRN; Protocol PRN Reason: Hypoglycemia Protocol Stop: 04/01/23 05:48 Promethazine HCl (Phenergan) 6.25 mg in 50.25 mls @ 201 mls/hr IV Q6H PRN PRN Reason: Nausea And Vomiting Stop: 04/01/23 03:59 Daptomycin 450 mg/ Syringe 9 mls @ 4.5 mls/min IV Q24H SUMA; Protocol Stop: 03/06/23 05:59 Last Admin: 03/05/23 05:19 Dose: 4.5 mls/min Cefepime HCl 2,000 mg/ Syringe 20 mls @ 5 mls/min IV Q8H SUMA; Protocol Stop: 03/12/23 11:59 Last Admin: 03/05/23 13:25 Dose: 5 mls/min Sodium Chloride (Nss) 1,000 mls @ 80 mls/hr IV .[id number] [facility] Stop: 04/04/23 10:45 Last Admin: 03/05/23 11:50 Dose: 80 mls/hr Insulin Aspart (Insulin Aspart Per Unit Charge) 0 units SC ACHS [facility] Stop: 04/01/23 07:29 Last Admin: 03/05/23 13:26 Dose: 11 units Insulin Glargine (Lantus Per Unit Charge) 5 units SC BID@ [facility] Stop: 04/01/23 08:29 Last Admin: 03/05/23 09:20 Dose: 5 units Magnesium Oxide (Magnesium Oxide 400 Mg Tab) 400 mg PEG BID [facility] Stop: 04/01/23 08:59 Last Admin: 03/05/23 08:31 Dose: 400 mg Metronidazole (Metronidazole Susp 50mg/Ml) 500 mg PO TID [facility]; Protocol Stop: 04/13/23 08:59 Last Admin: 03/05/23 13:32 Dose: 500 mg Miconazole Nitrate (Miconazole Nitrate Powder 85 Gm) 1 appln EXT PRN PRN PRN Reason: fungal rash Stop: 04/01/23 06:26 Miscellaneous (Carbohydrates For Hypoglycemia ) 15 - 30 gm PO UD PRN PRN Reason: Hypoglycemia Protocol Stop: 04/01/23 05:48 Multivitamins/Minerals (Multi Vit W/Minerals Liquid 15 Ml Udp) 15 ml PEG QAM [facility] Stop: 04/01/23 08:59 Last Admin: 03/05/23 08:32 Dose: 15 ml Nitroglycerin (Nitroglycerin Sl 0.4 Mg/Tab Tab) 0.4 mg SL UD PRN PRN Reason: Chest Pain Stop: 04/01/23 06:26 Nutritional Formula (Peptamen Intense Vhp 1.0 [place] 1,000 Ml Bag) 1,000 ml PEG TODAY@1999 [facility]; Protocol Stop: 04/01/23 19:59 Last Admin: 03/04/23 20:50 Dose: 1,000 ml Sterile Water (Tube Feeding Water Flush) 150 ml PEG Q6H [facility] Stop: 04/03/23 18:59 Last Admin: 03/05/23 13:28 Dose: 150 ml Tamsulosin HCl (Tamsulosin Hcl 0.4 Mg Cap) 0.4 mg PO HS [facility] Stop: 04/01/23 20:59 Last Admin: 03/04/23 08:27 Dose: 0.4 mg Tamsulosin HCl (Tamsulosin Hcl 0.4 Mg Cap) 0.4 mg PEG QAM [facility] Stop: 04/01/23 08:59 Last Admin: 03/05/23 08:31 Dose: 0.4 mg
[2023-03-05] MEDS: TAMSULOSIN HCL 0.4 MG CAP PO SCH (20:13)
[2023-03-05] MEDS: PEPTAMEN INTENSE VHP 1.0 CAL 1,000 ML BAG PEG SCH (20:33)
[2023-03-06] MEDS: TUBE FEEDING WATER FLUSH PEG SCH ×4 (02:51→17:49)
[2023-03-06] MEDS: SODIUM CHLORIDE 0.9% 1,000 ML IV SCH ×2 (02:57→13:37)
[2023-03-06] MEDS: CEFEPIME 2,000 MG in SYRINGE 0 ML IV SCH (03:06)
[2023-03-06] MEDS: ENOXAPARIN INJ 60 MG/0.6 ML SYR SQ SCH ×2 (04:26→15:25)
[2023-03-06 04:55] LABS: Basophils # (auto) 0.03 K/uL (0.00-0.20); Basophils % (auto) 0.5 %; Eosinophils # (auto) 0.16 K/uL (0.00-0.50); Eosinophils % (auto) 2.7 %; Hematocrit (blood only) 34.1 % (42.0-52.0); Hemoglobin 10.3 g/dl (14.0-18.0); Immature Granulocytes # (auto) 0.03 K/uL (0.01-0.20); Immature Granulocytes % (auto) 0.5 %; Lymphocytes # (auto) 1.54 K/uL (1.20-3.40); Lymphocytes % (auto) 25.7 %; Mean Corpuscular Hemoglobin 22.3 pg (25.0-34.0); Mean Corpuscular Hgb Conc 30.2 g/dL (32.0-36.0); Mean Platelet Volume 10.4 fL (9.4-12.4); Monocytes # (auto) 0.43 K/uL (0.11-0.59); Monocytes % (auto) 7.2 %; Neutrophils % (auto) 63.4 %; Platelet Count 339 K/uL (130-400); RDW Coefficient of Variation 17.9 % (11.5-14.5); RDW Standard Deviation 47.5 fL (36.4-46.3); Red Blood Count 4.61 M/uL (4.70-6.10); White Blood Count 5.99 K/ul (4.8-10.8)
[2023-03-06 05:00] LABS: Anion Gap 5 (3-11); Calcium 8.3 mg/dl (8.6-10.3); Carbon Dioxide 24 mmol/L (21-32); Chloride 102 mmol/L (98-107); Magnesium 1.6 mg/dl (1.7-2.4); Potassium 4.3 mmol/L (3.5-5.1); Sodium 131 mmol/L (136-145)
[2023-03-06 05:05] LABS: BUN Creatinine Ratio 96.9 (10-20); Blood Urea Nitrogen 31 mg/dl (6-23); Creatinine Clr Calc Pharmacy 215.1 ml/min; Est GFR (African American) > 150.0 ml/min; Est GFR (Non-African American) 137.6 ml/min; Glucose 219 mg/dl (70-99(Fasting)); Phosphorus 2.1 mg/dl (2.5-4.9)
[2023-03-06] MEDS: INSULIN ASPART PER UNIT CHARGE SC SCH ×4 (09:00→21:50)
[2023-03-06] MEDS: TAMSULOSIN HCL 0.4 MG CAP PEG SCH (10:23)
[2023-03-06] MEDS: AMIODARONE 200 MG TAB PEG SCH ×2 (10:23→15:25)
[2023-03-06] MEDS: CHOLESTYRAMINE LIGHT 4 GM PKT PO SCH ×2 (10:23→20:28)
[2023-03-06] MEDS: MAGNESIUM OXIDE 400 MG TAB PEG SCH ×2 (10:23→20:31)
[2023-03-06] MEDS: FERROUS SULFATE 325 MG/7.4 ML UDP PO SCH (10:24)
[2023-03-06] MEDS: MAGNESIUM SULFATE / D5W 1 GM/100 ML BAG IV SCH ×4 (10:24→15:22)
[2023-03-06] MEDS: MULTI VIT W/MINERALS LIQUID 15 ML UDP PEG SCH (10:24)
[2023-03-06] MEDS: metroNIDAZOLE Susp 50mg/ml PO SCH ×3 (10:28→20:26)
[2023-03-06] MEDS: LANTUS PER UNIT CHARGE SC SCH ×3 (10:46→21:50)
--- NOTE | 2023-03-06 12:36 | Hospitalist Progress Note ---
Date of Service March 06, 2023 Assessment & Plan (1) Acute hyponatremia: Plan: Transfer to [facility] from [facility] facility: Noted to have hyponatremia on admission with a sodium level of 1 27-1 28 Likely secondary to use of Bactrim Appreciate nephrology input and recommendation Sodium level went up to 131 as of today Currently on normal saline at 80 cc/h as per allergy. Urine culture came back negative for any infection Right heel wound culture showed Corynebacterium species He will be finishing antibiotic tomorrow there is 03/06/2023 as per the ID recommendation before (2) Hematuria: Plan: Trent hematuria noted in the facility Likely secondary to trauma due to Hagan catheter CT scan of the chest and pelvis did show nonspecific thickening of the bladder wall Hematuria resolved without any drop in hemoglobin Started on Lovenox (3) Sacral wound: Plan: Stage IV sacral decubiti POA Documented below is the detailed progress note. Wound VAC has been replaced from today that is 03/04/2023 Antibiotic courses will be finished on 03/06/2023 (4) Aortic stenosis: Plan: Has severe aortic stenosis Monitor volume status closely (5) Paroxysmal atrial fibrillation: Plan: On the night of December 07 ; patient converted to atrial fibrillation with rapid ventricular response. He was startedamiodarone drip as per cardiology recommendation Converted back to sinus rhythm on December 08 after 5 hours. Repeat echocardiogram was done; found to have moderately reduced EF of 35 to 40% with severe Rate remains controlled without any cardiac symptoms -- Continue amiodarone plus metoprolol Monitor closely (6) Peripheral arterial disease: (7) History of CVA (cerebrovascular accident): Plan: History of recurrent CVA despite DAPT and anticoagulation therapy Chronic right hemiplegia/left arm paralysis/mostly nonverbal/expressive aphasia/dysphagia with PEG tube Continue statin, Plavix/Lovenox (8) BPH with obstruction/lower urinary tract symptoms: Plan: Hagan in place- Continue tamsulosin. (9) Type 2 diabetes mellitus: Plan: A1c of 6.9 on 09/26. Glycemic pharmacy consult, Long-acting insulin sliding scale insulin. (10) HTN (hypertension): Plan: Continue meds, BP stable Plan Full code DVT Lovenox Time spent evaluating patient, direct bedside care, chart review, placing orders, interpretation of diagnostic studies, discussion with consultants, patient, and family members, as well as other required patient management activities is 60 minutes Please note the above document was generated using voice recognition software. It may contain grammatical, syntax or spelling errors. Any formal questions or concerns about the content, text or information contained within the body of this dictation should be directly addressed to the provider for clarification Admission and Anticipated Discharge Date Admission Date: March 02, 2023 Subjective Patient seen and examined at bedside. He appears to be comfortable; able to answer yes or no questions. Denies being in pain or discomfort. Hagan in place draining clear urine Review of Systems Review of Systems: All systems reviewed & are unremarkable except as noted in Subjective Physical Exam Physical Exam: Lying in bed comfortably Constitutional: + thin; no acute distress Eyes: PERRL, conjunctivae normal, anicteric sclerae ENMT: external ear and nose normal, oropharynx normal Neck: trachea midline, no thyromegaly Respiratory: no respiratory distress Auscultation: + diminished lung sounds and + crackles (Minimal crackles at the bases) Cardiovascular: Rate/Rhythm: regular rate and regular rhythm; not tachycardic Heart Sounds: normal S1, normal S2 and + murmur (3/6 ESM over precordium) Extremities: no edema Gastrointestinal (Abdomen): Inspection/Auscultation: normal bowel sounds; abdomen not distended Percussion/Palpation: abdomen soft; abdomen nontender Musculoskeletal: Extremities: + muscle atrophy; + extremities abnormal to inspection (Has muscle atrophy with flexural deformities involving the extremities) Neurologic: awake (Minimal communication) Lymphatic: no cervical or axillary lymphadenopathy Results & Data Results & Data Vital Signs (Past 12 Hours) Vital Signs Temp Pulse Pulse Resp BP BP Pulse Ox 03/06/23 08:00 75 03/06/23 11:11 36.6 C 67 18 122/71 98 03/06/23 07:35 36.8 C 79 20 144/73 H 97 03/06/23 02:37 36.7 C 80 20 133/76 96 O2 Del Method 03/06/23 08:00 03/06/23 11:11 Room Air 03/06/23 07:35 Room Air 03/06/23 02:37 Room Air Laboratory Results Laboratory Results WBC 5.99 K/ul (4.8-10.8) 03/06/23 04:08 RBC 4.61 M/uL (4.70-6.10) L 03/06/23 04:08 Hgb 10.3 g/dl (14.0-18.0) L 03/06/23 04:08 Hct 34.1 % (42.0-52.0) L 03/06/23 04:08 MCV 74.0 fL (80.0-100.0) L 03/06/23 04:08 MCH 22.3 pg (25.0-34.0) L 03/06/23 04:08 MCHC 30.2 g/dL (32.0-36.0) L 03/06/23 04:08 RDW Std Deviation 47.5 fL (36.4-46.3) H 03/06/23 04:08 RDW Coeff of Caroline 17.9 % (11.5-14.5) H 03/06/23 04:08 Plt Count 339 K/uL (130-400) 03/06/23 04:08 MPV 10.4 fL (9.4-12.4) 03/06/23 04:08 Immature Gran % (Auto) 0.5 % 03/06/23 04:08 Neut % (Auto) 63.4 % 03/06/23 04:08 Lymph % (Auto) 25.7 % 03/06/23 04:08 [place] % (Auto) 7.2 % 03/06/23 04:08 Eos % (Auto) 2.7 % 03/06/23 04:08 Baso % (Auto) 0.5 % 03/06/23 04:08 Neut # (Auto) 3.80 K/uL (1.40-6.50) 03/06/23 04:08 Lymph # (Auto) 1.54 K/uL (1.20-3.40) 03/06/23 04:08 [place] # (Auto) 0.43 K/uL (0.11-0.59) 03/06/23 04:08 Eos # (Auto) 0.16 K/uL (0.00-0.50) 03/06/23 04:08 Baso # (Auto) 0.03 K/uL (0.00-0.20) 03/06/23 04:08 Immature Gran # (Auto) 0.03 K/uL (0.01-0.20) 03/06/23 04:08 APTT 33.1 Seconds (21.0-31.0) H 03/02/23 07:55 PTT Ratio 1.2 03/02/23 07:55 Sodium 131 mmol/L (136-145) L 03/06/23 04:08 Potassium 4.3 mmol/L (3.5-5.1) 03/06/23 04:08 Chloride 102 mmol/L (98-107) 03/06/23 04:08 Carbon Dioxide 24 mmol/L (21-32) 03/06/23 04:08 Anion Gap 5 (3-11) 03/06/23 04:08 BUN 31 mg/dl (6-23) H 03/06/23 04:08 Creatinine 0.32 mg/dl (0.6-1.4) L 03/06/23 04:08 Est Cr Clr Drug Dosing 215.1 ml/min 03/06/23 04:08 Est GFR ( Amer) > 150.0 ml/min 03/06/23 04:08 Est GFR (Non-Af Amer) 137.6 ml/min 03/06/23 04:08 BUN/Creatinine Ratio 96.9 (10-20) H 03/06/23 04:08 Glucose 219 mg/dl (70-99(Fasting)) H 03/06/23 04:08 POC Glucose 289 mg/dl (70-99) H 03/06/23 11:59 Osmolality 276 mOsm/kg (280-300) L 03/02/23 00:58 Calcium 8.3 mg/dl (8.6-10.3) L 03/06/23 04:08 Phosphorus 2.1 mg/dl (2.5-4.9) L 03/06/23 04:08 Magnesium 1.6 mg/dl (1.7-2.4) L 03/06/23 04:08 Total Bilirubin 0.2 mg/dl (0.2-1.0) 03/02/23 00:58 AST 12 U/L (13-39) L 03/02/23 00:58 ALT 14 U/L (7-52) 03/02/23 00:58 Alkaline Phosphatase 89 U/L (34-104) 03/02/23 00:58 Total Protein 6.4 gm/dl (6.0-8.3) 03/02/23 00:58 Albumin 3.1 gm/dl (3.4-5.0) L 03/02/23 00:58 Globulin 3.3 gm/dl (2.5-4.0) 03/02/23 00:58 Albumin/Globulin Ratio 0.9 (0.9-2) 03/02/23 00:58 Lipase 8 U/L (11-82) L 03/02/23 00:58 TSH 2.711 uIu/ml (0.300-4.500) 03/02/23 00:58 Urine Color Red 03/02/23 01:15 Urine Appearance Cloudy (Clear) A 03/02/23 01:15 Urine pH 6.5 (4.5-7.5) 03/02/23 01:15 Ur Specific [place] 1.025 (1.000-1.030) 03/02/23 01:15 Urine Protein 3+ (Negative) H 03/02/23 01:15 Urine Glucose (UA) Negative (Negative) 03/02/23 01:15 Urine Ketones Negative (Negative) 03/02/23 01:15 Urine Blood 3+ (Negative) H 03/02/23 01:15 Urine Nitrite Negative (Negative) 03/02/23 01:15 Urine Bilirubin Negative (Negative) 03/02/23 01:15 Urine Urobilinogen Negative (Negative) 03/02/23 01:15 Ur Leukocyte Esterase Trace (Negative) H 03/02/23 01:15 Urine RBC >30 /hpf (0-4) H 03/02/23 01:15 Urine WBC >30 /hpf (0-5) H 03/02/23 01:15 Ur Epithelial Cells 0-5 /lpf (0-5) 03/02/23 01:15 Urine Bacteria 1+ (Negative) H 03/02/23 01:15 Urine Osmolality 680 mOsm/kg (500-800) 03/02/23 01:15 Ur Random Sodium 122 mmol/L 03/02/23 01:15 Nasal Screen MRSA (PCR) Positive (Negative) A 03/02/23 09:15 SARS-CoV-2, RNA, NAAT NEGATIVE (NEGATIVE) 03/02/23 04:20 Blood Type A Positive 03/02/23 07:55 Antibody Screen NEGATIVE 03/02/23 07:55 Impressions Abdomen/Pelvis CT 03/02/23 00:50 Exam(s): CT ABDOMEN + PELVIS With Contrast IV Amt: 90 ML OPTIRAY 320 EXAM: CT Abdomen and Pelvis With Intravenous Contrast CLINICAL HISTORY: Reason for exam: hematuria, decub ulcer,. TECHNIQUE: Axial computed tomography images of the abdomen and pelvis with intravenous contrast. CTDI is 21.91 mGy and DLP is 1208.15 mGy-cm. Automated exposure control was utilized for the study. A dose lowering technique was utilized adhering to the principles of ALARA. CONTRAST: Patient received 90 ML OPTIRAY 320 of IV contrast COMPARISON: Dated 11/17/22 FINDINGS: Lung bases: Unremarkable. No mass. No consolidation. ABDOMEN: Liver: Unremarkable. No mass. Gallbladder and bile ducts: Unremarkable. No calcified stones. No ductal dilation. Pancreas: Unremarkable. No mass. No ductal dilation. Spleen: Unremarkable. No splenomegaly. Adrenals: Thickening of the right adrenal gland is a stable finding. Kidneys and ureters: Unremarkable. No solid mass. No hydronephrosis. Stomach and bowel: Significant stool distention of the rectum. No mucosal thickening. PELVIS: Appendix: No findings to suggest acute appendicitis. Bladder: Nonspecific moderate bladder wall thickening. Hagan catheter in place within a collapsed urinary bladder. Reproductive: Unremarkable as visualized. ABDOMEN and PELVIS: Intraperitoneal space: Unremarkable. No free air. No significant fluid collection. Bones/joints: Changes of prior sternotomy. Soft tissue irregularity over the sacrum with osseous erosion of the sacrum/coccyx (image 80 series 2). Appearance is stable from prior. Extensive dystrophic calcification within the bilateral hip adductor musculature. No acute fracture. No dislocation. Soft tissues: See above. Vasculature: Partially visualized extensive atherosclerotic disease of the coronary arteries. No abdominal aortic aneurysm. Lymph nodes: Unremarkable. No enlarged lymph nodes. Tubes, lines and devices: Gastrostomy tube in place. IMPRESSION: 1. Moderate bladder wall thickening without hydronephrosis or CT evidence for involvement of the upper urinary tract. 2. Relatively stable appearance of a sacral decubitus ulcer with erosion of the underlying bone compatible with osteomyelitis. Electronically signed by: Micky Valdez MD 03/02/23 02:31 AM Chest X-Ray 03/02/23 02:52 XR chest 1V portable HISTORY: hyponatremia COMPARISON: Chest 01/29/2023. FINDINGS: There are low lung volumes. A few left basilar linear densities favor subsegmental atelectasis. Otherwise, the lungs are clear. No evidence for pulmonary edema. The cardiac silhouette remains mildly enlarged. There are poststernotomy changes again noted. Degenerative changes within the shoulders. IMPRESSION: 1. Stable mild cardiomegaly. 2. Otherwise, no acute process within the chest. ACT 112: Negative or not required by law. Electronically signed by: Chris Bowens M.D. 03/02/2023 6:59 AM
[2023-03-06] MEDS ORDERED: PHARMACY GLYCEMIC MGMT CONSULT PRN (12:52)
--- NOTE | 2023-03-06 13:04 | Nephrology Progress Note ---
Date of Service March 06, 2023 Assessment & Plan (1) Hyponatremia: Plan: essentially plateau'd exacerbation of chronic mild hyponatremia Pt had issues w/ hyponatremia during recent admission here > on review of labs 01/30-02/24 sNa ranges 131-133. history of recent hyponatremia/hyperkalemia as OP, which may well be c/w bactrim therapy now stopped. presented w/ sNa 128 at [facility] 03/02 [place] and 127 at 0800 w/ gradual downtrend over several previous days difficult, if not impossible to evaluate for symptoms in this clinical setting; no evidence of confusion or malaise; no hx of n/v no overloaded on exam, by hx, or on imaging; per pt had been eating/drinking well at outside facility > ? diet w/ significantly lower solute/lower protein content -he is autodiuresing w/ resumption of higher protein diet and holding bactrim - getting adequate solute in his diet on high protein regimen - Sodium improved and at his baseline level with trial of increasing FR flushes to 150 ml q6h and 1/2 L NS at 80 mL /hourly-- Continue this no FR since he is on liquid diet currently; no indication for lasix, salt tabs, or urea at this time but monitor for need strict I/O Daily BMP at this point Admission and Anticipated Discharge Date Admission Date: March 02, 2023 Subjective Patient seen and examined at bedside. He appears to be comfortable; able to answer yes or no questions. Denies being in pain or discomfort. Review of Systems Review of Systems: All systems reviewed & are unremarkable except as noted in HPI & below Physical Exam Physical Exam: Genaral -well developed, average body habitus, + physical limitations, + frail appearing and cooperative; no acute distress Respiratory: Bilateral diminished breath sounds. Cardiovascular: RRR, + murmur,: no JVD or carotid bruit Chest: normal inspection of chest Abdomen: normal bowel sounds, soft, nontender, no hepatosplenomegaly Musculoskeletal: no cyanosis or clubbing. Skin: no rashes, warm and dry normal turgor Results & Data Vital Signs (Past 12 Hours) Vital Signs Temp Pulse Pulse Resp BP BP Pulse Ox 03/06/23 08:00 75 03/06/23 11:11 36.6 C 67 18 122/71 98 03/06/23 07:35 36.8 C 79 20 144/73 H 97 03/06/23 02:37 36.7 C 80 20 133/76 96 O2 Del Method 03/06/23 08:00 03/06/23 11:11 Room Air 03/06/23 07:35 Room Air 03/06/23 02:37 Room Air Laboratory Results 03/06/23 04:08 03/06/23 04:08
--- NOTE | 2023-03-06 14:00 | Pharmacy Report ---
Pharmacy Glycemic Short Note 2 - Date of Service March 06, 2023 - Glycemic Short BSG Results (Last 24 hours): 03/05/23 03/05/23 03/06/23 17:07 20:28 04:08 Glucose 219 H POC Glucose 231 H 232 H 03/06/23 03/06/23 07:36 11:59 Glucose POC Glucose 228 H 289 H OUTPATIENT ANTIDIABETIC REGIMEN: * Lantus and NovoLog at [facility] in [place] ASSESSMENT: * 62 year old male, transferred from [facility] for acute hyponatremia, also treating sacral wound, finishing antibiotics today. * Blood sugars above goal due to insufficient basal and bolus insulin, will increase both. * Patient is on Peptamen 50cc/hr overnight for 12 hours from 2000 to 0800 - this provides only 3.9g CHO per hour - so will cover with basal at this time. * Patient eating a pureed type 2 DM diet throughout the day. PLAN FOR INPATIENT GLYCEMIC CONTROL: * Basal insulin -increase * Lantus 12 units SQ BID starting now * Bolus insulin - tighten CF/CR * NovoLog per scale ACHS or Q6hrs while NPO * Goal Range: Low 110 mg/dL - High 140 mg/dL * Correction Factor: 20 mg/dL/unit * Nutritional / Prandial insulin per carb ratio of 1 unit per 6 grams CHO consumed
[2023-03-06] MEDS: PEPTAMEN INTENSE VHP 1.0 CAL 1,000 ML BAG PEG SCH (20:26)
[2023-03-06] MEDS: TAMSULOSIN HCL 0.4 MG CAP PO SCH (20:31)
[2023-03-07] MEDS: TUBE FEEDING WATER FLUSH PEG SCH ×4 (01:15→18:13)
[2023-03-07] MEDS: ENOXAPARIN INJ 60 MG/0.6 ML SYR SQ SCH ×2 (04:04→18:10)
[2023-03-07 04:25] LABS: Hematocrit (blood only) 33.5 % (42.0-52.0); Hemoglobin 10.1 g/dl (14.0-18.0); Mean Corpuscular Hemoglobin 22.2 pg (25.0-34.0); Mean Corpuscular Hgb Conc 30.1 g/dL (32.0-36.0); Mean Corpuscular Volume 73.6 fL (80.0-100.0); Platelet Count 352 K/uL (130-400); RDW Coefficient of Variation 17.9 % (11.5-14.5); Red Blood Count 4.55 M/uL (4.70-6.10); White Blood Count 6.36 K/ul (4.8-10.8)
[2023-03-07 04:38] LABS: Est GFR (African American) > 150.0 ml/min; Est GFR (Non-African American) 129.6 ml/min
[2023-03-07] MEDS: MULTI VIT W/MINERALS LIQUID 15 ML UDP PEG SCH (08:23)
[2023-03-07] MEDS: TAMSULOSIN HCL 0.4 MG CAP PEG SCH (08:24)
[2023-03-07] MEDS: FERROUS SULFATE 325 MG/7.4 ML UDP PO SCH (08:24)
[2023-03-07] MEDS: AMIODARONE 200 MG TAB PEG SCH ×2 (08:24→18:10)
[2023-03-07] MEDS: MAGNESIUM OXIDE 400 MG TAB PEG SCH ×2 (08:24→20:00)
[2023-03-07 09:08] LABS: Anion Gap 4 (3-11); BUN Creatinine Ratio 79.4 (10-20); Blood Urea Nitrogen 27 mg/dl (6-23); Calcium 8.3 mg/dl (8.6-10.3); Carbon Dioxide 28 mmol/L (21-32); Chloride 101 mmol/L (98-107); Creatinine Clr Calc Pharmacy 205.2 ml/min; Est GFR (African American) > 150.0 ml/min; Est GFR (Non-African American) 134.2 ml/min; Glucose 196 mg/dl (70-99(Fasting)); Potassium 4.3 mmol/L (3.5-5.1); Sodium 133 mmol/L (136-145)
[2023-03-07] MEDS: INSULIN ASPART PER UNIT CHARGE SC SCH ×4 (10:09→21:42)
[2023-03-07] MEDS: LANTUS PER UNIT CHARGE SC SCH ×2 (10:09→21:43)
[2023-03-07] MEDS: CHOLESTYRAMINE LIGHT 4 GM PKT PO SCH ×2 (10:20→21:44)
--- NOTE | 2023-03-07 11:45 | Hospitalist Progress Note ---
Date of Service March 07, 2023 Assessment & Plan (1) Acute hyponatremia: Plan: Transfer to [facility] from [facility]: Noted to have hyponatremia on admission with a sodium level of 1 27-1 28 Likely secondary to use of Bactrim Appreciate nephrology input and recommendation Sodium level went up to 133 Urine culture came back negative for any infection Right heel wound culture showed Corynebacterium species He will be finished antibiotics on 03/06/2023 as per the ID recommendation. (2) Hematuria: Plan: [place] hematuria noted in the facility Likely secondary to trauma due to Hagan catheter CT scan of the chest and pelvis did show nonspecific thickening of the bladder wall Hematuria resolved without any drop in hemoglobin lovenox resumed (3) Sacral wound: Plan: Stage IV sacral decubiti POA Documented below is the detailed progress note. Wound VAC has been replaced from today that is 03/04/2023 Antibiotic courses will be finished on 03/06/2023 (4) Aortic stenosis: Plan: Has severe aortic stenosis Monitor volume status closely (5) Paroxysmal atrial fibrillation: Plan: On the night of December 07 ; patient converted to atrial fibrillation with rapid v entricular response. He was startedamiodarone drip as per cardiology recommendation Converted back to sinus rhythm on December 08 after 5 hours. Repeat echocardiogram was done; found to have moderately reduced EF of 35 to 40% with severe Rate remains controlled without any cardiac symptoms -- Continue amiodarone plus metoprolol Monitor closely (6) Peripheral arterial disease: (7) History of CVA (cerebrovascular accident): Plan: History of recurrent CVA despite DAPT and anticoagulation therapy Chronic right hemiplegia/left arm paralysis/mostly nonverbal/expressive aphasia/dysphagia with PEG tube Continue statin, Plavix/Lovenox (8) BPH with obstruction/lower urinary tract symptoms: Plan: Hagan in place- Continue tamsulosin. (9) Type 2 diabetes mellitus: Plan: A1c of 6.9 on 09/26. Glycemic pharmacy consult, Long-acting insulin sliding scale insulin. (10) HTN (hypertension): Plan: Continue meds, BP stable Plan Full code DVT Lovenox Time spent evaluating patient, direct bedside care, chart review, placing orders, interpretation of diagnostic studies, discussion with consultants, patient, and family members, as well as other required patient management activities is 60 minutes Please note the above document was generated using voice recognition software. It may contain grammatical, syntax or spelling errors. Any formal questions or concerns about the content, text or information contained within the body of this dictation should be directly addressed to the provider for clarification Admission and Anticipated Discharge Date Admission Date: March 02, 2023 Subjective Patient seen and examined at bedside. He is lying on the bed comfortably; not in distress. Reports that he is comfortable. No other concerns by his . Review of Systems Review of Systems: All systems reviewed & are unremarkable except as noted in Subjective Physical Exam Physical Exam: Lying in bed comfortably Constitutional: + thin; no acute distress Eyes: PERRL, conjunctivae normal, anicteric sclerae ENMT: external ear and nose normal, oropharynx normal Neck: trachea midline, no thyromegaly Respiratory: no respiratory distress Auscultation: + diminished lung sounds and + crackles (Minimal crackles at the bases) Cardiovascular: Rate/Rhythm: regular rate and regular rhythm; not tachycardic Heart Sounds: normal S1, normal S2 and + murmur (3/6 ESM over precordium) Extremities: no edema Gastrointestinal (Abdomen): Inspection/Auscultation: normal bowel sounds; abdomen not distended Percussion/Palpation: abdomen soft; abdomen nontender Musculoskeletal: Extremities: + muscle atrophy; + extremities abnormal to inspection (Has muscle atrophy with flexural deformities involving the extremities) Neurologic: awake (Minimal communication) Lymphatic: no cervical or axillary lymphadenopathy Results & Data Results & Data Vital Signs (Past 12 Hours) Vital Signs Temp Pulse Pulse Resp BP Pulse Ox O2 Del Method 03/07/23 07:59 36.7 C 77 20 128/79 97 Room Air 03/07/23 07:27 76 03/07/23 04:38 36.7 C 80 20 120/71 97 Room Air 03/07/23 00:03 36.8 C 79 20 126/71 98 Room Air Laboratory Results Laboratory Results WBC 6.36 K/ul (4.8-10.8) 03/07/23 03:45 RBC 4.55 M/uL (4.70-6.10) L 03/07/23 03:45 Hgb 10.1 g/dl (14.0-18.0) L 03/07/23 03:45 Hct 33.5 % (42.0-52.0) L 03/07/23 03:45 MCV 73.6 fL (80.0-100.0) L 03/07/23 03:45 MCH 22.2 pg (25.0-34.0) L 03/07/23 03:45 MCHC 30.1 g/dL (32.0-36.0) L 03/07/23 03:45 RDW Std Deviation 47.0 fL (36.4-46.3) H 03/07/23 03:45 RDW Coeff of Caroline 17.9 % (11.5-14.5) H 03/07/23 03:45 Plt Count 352 K/uL (130-400) 03/07/23 03:45 MPV 10.0 fL (9.4-12.4) 03/07/23 03:45 Immature Gran % (Auto) 0.5 % 03/06/23 04:08 Neut % (Auto) 63.4 % 03/06/23 04:08 Lymph % (Auto) 25.7 % 03/06/23 04:08 Whitley % (Auto) 7.2 % 03/06/23 04:08 Eos % (Auto) 2.7 % 03/06/23 04:08 Baso % (Auto) 0.5 % 03/06/23 04:08 Neut # (Auto) 3.80 K/uL (1.40-6.50) 03/06/23 04:08 Lymph # (Auto) 1.54 K/uL (1.20-3.40) 03/06/23 04:08 Whitley # (Auto) 0.43 K/uL (0.11-0.59) 03/06/23 04:08 Eos # (Auto) 0.16 K/uL (0.00-0.50) 03/06/23 04:08 Baso # (Auto) 0.03 K/uL (0.00-0.20) 03/06/23 04:08 Immature Gran # (Auto) 0.03 K/uL (0.01-0.20) 03/06/23 04:08 APTT 33.1 Seconds (21.0-31.0) H 03/02/23 07:55 PTT Ratio 1.2 03/02/23 07:55 Sodium 133 mmol/L (136-145) L 03/07/23 08:23 Potassium 4.3 mmol/L (3.5-5.1) 03/07/23 08:23 Chloride 101 mmol/L (98-107) 03/07/23 08:23 Carbon Dioxide 28 mmol/L (21-32) 03/07/23 08:23 Anion Gap 4 (3-11) 03/07/23 08:23 BUN 27 mg/dl (6-23) H 03/07/23 08:23 Creatinine 0.34 mg/dl (0.6-1.4) L 03/07/23 08:23 Est Cr Clr Drug Dosing 205.2 ml/min 03/07/23 08:23 Est GFR ( Amer) > 150.0 ml/min 03/07/23 08:23 Est GFR (Non-Af Amer) 134.2 ml/min 03/07/23 08:23 BUN/Creatinine Ratio 79.4 (10-20) H 03/07/23 08:23 Glucose 196 mg/dl (70-99(Fasting)) H 03/07/23 08:23 POC Glucose 196 mg/dl (70-99) H 03/07/23 08:09 Osmolality 276 mOsm/kg (280-300) L 03/02/23 00:58 Calcium 8.3 mg/dl (8.6-10.3) L 03/07/23 08:23 Phosphorus 2.1 mg/dl (2.5-4.9) L 03/06/23 04:08 Magnesium 1.6 mg/dl (1.7-2.4) L 03/06/23 04:08 Total Bilirubin 0.2 mg/dl (0.2-1.0) 03/02/23 00:58 AST 12 U/L (13-39) L 03/02/23 00:58 ALT 14 U/L (7-52) 03/02/23 00:58 Alkaline Phosphatase 89 U/L (34-104) 03/02/23 00:58 Total Protein 6.4 gm/dl (6.0-8.3) 03/02/23 00:58 Albumin 3.1 gm/dl (3.4-5.0) L 03/02/23 00:58 Globulin 3.3 gm/dl (2.5-4.0) 03/02/23 00:58 Albumin/Globulin Ratio 0.9 (0.9-2) 03/02/23 00:58 Lipase 8 U/L (11-82) L 03/02/23 00:58 TSH 2.711 uIu/ml (0.300-4.500) 03/02/23 00:58 Urine Color Red 03/02/23 01:15 Urine Appearance Cloudy (Clear) A 03/02/23 01:15 Urine pH 6.5 (4.5-7.5) 03/02/23 01:15 Ur Specific [place] 1.025 (1.000-1.030) 03/02/23 01:15 Urine Protein 3+ (Negative) H 03/02/23 01:15 Urine Glucose (UA) Negative (Negative) 03/02/23 01:15 Urine Ketones Negative (Negative) 03/02/23 01:15 Urine Blood 3+ (Negative) H 03/02/23 01:15 Urine Nitrite Negative (Negative) 03/02/23 01:15 Urine Bilirubin Negative (Negative) 03/02/23 01:15 Urine Urobilinogen Negative (Negative) 03/02/23 01:15 Ur Leukocyte Esterase Trace (Negative) H 03/02/23 01:15 Urine RBC >30 /hpf (0-4) H 03/02/23 01:15 Urine WBC >30 /hpf (0-5) H 03/02/23 01:15 Ur Epithelial Cells 0-5 /lpf (0-5) 03/02/23 01:15 Urine Bacteria 1+ (Negative) H 03/02/23 01:15 Urine Osmolality 680 mOsm/kg (500-800) 03/02/23 01:15 Ur Random Sodium 122 mmol/L 03/02/23 01:15 Nasal Screen MRSA (PCR) Positive (Negative) A 03/02/23 09:15 SARS-CoV-2, RNA, NAAT NEGATIVE (NEGATIVE) 03/02/23 04:20 Blood Type A Positive 03/02/23 07:55 Antibody Screen NEGATIVE 03/02/23 07:55 Impressions Abdomen/Pelvis CT 03/02/23 00:50 Exam(s): CT ABDOMEN + PELVIS With Contrast IV Amt: 90 ML OPTIRAY 320 EXAM: CT Abdomen and Pelvis With Intravenous Contrast CLINICAL HISTORY: Reason for exam: hematuria, decub ulcer,. TECHNIQUE: Axial computed tomography images of the abdomen and pelvis with intravenous contrast. CTDI is 21.91 mGy and DLP is 1208.15 mGy-cm. Automated exposure control was utilized for the study. A dose lowering technique was utilized adhering to the principles of ALARA. CONTRAST: Patient received 90 ML OPTIRAY 320 of IV contrast COMPARISON: Dated 11/17/22 FINDINGS: Lung bases: Unremarkable. No mass. No consolidation. ABDOMEN: Liver: Unremarkable. No mass. Gallbladder and bile ducts: Unremarkable. No calcified stones. No ductal dilation. Pancreas: Unremarkable. No mass. No ductal dilation. Spleen: Unremarkable. No splenomegaly. Adrenals: Thickening of the right adrenal gland is a stable finding. Kidneys and ureters: Unremarkable. No solid mass. No hydronephrosis. Stomach and bowel: Significant stool distention of the rectum. No mucosal thickening. PELVIS: Appendix: No findings to suggest acute appendicitis. Bladder: Nonspecific moderate bladder wall thickening. Hagan catheter in place within a collapsed urinary bladder. Reproductive: Unremarkable as visualized. ABDOMEN and PELVIS: Intraperitoneal space: Unremarkable. No free air. No significant fluid collection. Bones/joints: Changes of prior sternotomy. Soft tissue irregularity over the sacrum with osseous erosion of the sacrum/coccyx (image 80 series 2). Appearance is stable from prior. Extensive dystrophic calcification within the bilateral hip adductor musculature. No acute fracture. No dislocation. Soft tissues: See above. Vasculature: Partially visualized extensive atherosclerotic disease of the coronary arteries. No abdominal aortic aneurysm. Lymph nodes: Unremarkable. No enlarged lymph nodes. Tubes, lines and devices: Gastrostomy tube in place. IMPRESSION: 1. Moderate bladder wall thickening without hydronephrosis or CT evidence for involvement of the upper urinary tract. 2. Relatively stable appearance of a sacral decubitus ulcer with erosion of the underlying bone compatible with osteomyelitis. Electronically signed by: Micky Valdez MD 03/02/23 02:31 AM Chest X-Ray 03/02/23 02:52 XR chest 1V portable HISTORY: hyponatremia COMPARISON: Chest 01/29/2023. FINDINGS: There are low lung volumes. A few left basilar linear densities favor subsegmental atelectasis. Otherwise, the lungs are clear. No evidence for pulmon radha edema. The cardiac silhouette remains mildly enlarged. There are poststernotomy changes again noted. Degenerative changes within the shoulders. IMPRESSION: 1. Stable mild cardiomegaly. 2. Otherwise, no acute process within the chest. ACT 112: Negative or not required by law. Electronically signed by: Chris Bownes M.D. 03/02/2023 6:59 AM
--- NOTE | 2023-03-07 12:33 | Nephrology Progress Note ---
Date of Service March 07, 2023 Assessment & Plan (1) Hyponatremia: Plan: Patient with hyponatremia due to hypovolemia. Improved with normal saline. Sodium is 133 today. We will stop normal saline now. Patient will need to fluid limit of around 1.5 L. Okay to monitor sodium daily. Admission and Anticipated Discharge Date Admission Date: March 02, 2023 Subjective Seen for Hyponatremia. Unable to give history. at bedside. Na improving Review of Systems Review of Systems: unable to obtain due to AMS Physical Exam Physical Exam: General exam: Appears comfortable, no acute distress HEENT: Pupils are equal and reactive to light Neck: No JVD, neck is supple trachea is midline Respiratory system: Clear breath sounds bilaterally. Gastrointestinal: Abdomen is soft, non distended, non tender, bowel sounds are present CVS: Regular rate and rhythm. No murmurs, rubs or gallops Musculoskeletal: No joint or muscle tenderness Extremities: Non tender, no edema, peripheral pulses are present Neuro: Oriented, no tremors, no focal neurological deficits Skin: No rashes, pressure ulcers on feet Results & Data Vital Signs (Past 12 Hours) Vital Signs Temp Pulse Pulse Resp BP Pulse Ox O2 Del Method 03/07/23 12:11 37.1 C 85 20 121/74 96 Room Air 03/07/23 07:59 36.7 C 77 20 128/79 97 Room Air 03/07/23 07:27 76 03/07/23 04:38 36.7 C 80 20 120/71 97 Room Air Laboratory Results 03/07/23 08:23 03/07/23 03:45 WBC 6.36 RBC 4.55 L MCV 73.6 L MCH 22.2 L MCHC 30.1 L RDW Std Deviation 47.0 H RDW Coeff of Caroline 17.9 H Plt Count 352 MPV 10.0
[2023-03-07] MEDS: TAMSULOSIN HCL 0.4 MG CAP PO SCH (19:59)
[2023-03-07] MEDS: PEPTAMEN INTENSE VHP 1.0 CAL 1,000 ML BAG PEG SCH (20:00)
[2023-03-08] MEDS: TUBE FEEDING WATER FLUSH PEG SCH ×4 (01:06→18:53)
[2023-03-08] MEDS: ENOXAPARIN INJ 60 MG/0.6 ML SYR SQ SCH ×2 (05:12→18:11)
[2023-03-08 05:13] LABS: BUN Creatinine Ratio 75.6 (10-20); Calcium 8.4 mg/dl (8.6-10.3); Creatinine Clr Calc Pharmacy 170.2 ml/min; Est GFR (Non-African American) 124.3 ml/min; Potassium 4.2 mmol/L (3.5-5.1)
[2023-03-08] MEDS ORDERED: LANTUS PER UNIT CHARGE SC SCH ×2 (09:00→21:00)
[2023-03-08] MEDS: INSULIN ASPART PER UNIT CHARGE SC SCH ×4 (09:25→20:18)
[2023-03-08] MEDS: CHOLESTYRAMINE LIGHT 4 GM PKT PO SCH ×2 (09:56→20:14)
[2023-03-08] MEDS: AMIODARONE 200 MG TAB PEG SCH ×2 (09:57→18:11)
[2023-03-08] MEDS: FERROUS SULFATE 325 MG/7.4 ML UDP PO SCH (09:57)
[2023-03-08] MEDS: MAGNESIUM OXIDE 400 MG TAB PEG SCH ×2 (09:57→20:13)
[2023-03-08] MEDS: MULTI VIT W/MINERALS LIQUID 15 ML UDP PEG SCH (09:57)
[2023-03-08] MEDS: TAMSULOSIN HCL 0.4 MG CAP PEG SCH (10:00)
--- NOTE | 2023-03-08 12:21 | Pharmacy Report ---
Pharmacy Glycemic Short Note 2 - Date of Service March 08, 2023 - Glycemic Short BSG Results (Last 24 hours): 03/07/23 03/07/23 03/08/23 17:16 19:49 04:32 Glucose 201 H POC Glucose 164 H 198 H 03/08/23 08:27 Glucose POC Glucose 223 H OUTPATIENT ANTIDIABETIC REGIMEN: * Lantus and NovoLog at [facility] in [place] ASSESSMENT: 03/08 * Patient received total of 68 units of insulin yesterday, of which 24 units were basal insulin * Fasting BSG 201 mg/dL (tube feeds running overnight from -). Plan to titrate up basal this AM * BSGs >160 all day yesterday, will tighten CF 03/06 * 62 year old male, transferred from [facility] for acute hyponatremia, also treating sacral wound, finishing antibiotics today. * Blood sugars above goal due to insufficient basal and bolus insulin, will increase both. * Patient is on Peptamen 50cc/hr overnight for 12 hours from 1999 to 0800 - this provides only 3.9g CHO per hour - so will cover with basal at this time. * Patient eating a pureed type 2 DM diet throughout the day. PLAN FOR INPATIENT GLYCEMIC CONTROL: * Basal insulin -increase * Lantus 15 units SQ BID starting now * Bolus insulin - tighten CF/CR * NovoLog per scale ACHS or Q6hrs while NPO * Goal Range: Low 110 mg/dL - High 140 mg/dL * Correction Factor: 15 mg/dL/unit * Nutritional / Prandial insulin per carb ratio of 1 unit per 6 grams CHO consumed
--- NOTE | 2023-03-08 12:25 | Nephrology Progress Note ---
Date of Service March 08, 2023 Assessment & Plan (1) Hyponatremia: Plan: Patient with hyponatremia due to hypovolemia. Improved with normal saline. Sodium is 135 today. Patient will need to fluid limit of around 1.5 L with the tube flushes. Okay to monitor sodium daily. Admission and Anticipated Discharge Date Admission Date: March 02, 2023 Subjective Seen for electrolyte imbalance. Patient is awake but gives minimal history. He has a large pressure sore on the butt Review of Systems Review of Systems: unable to obtain due to AMS Physical Exam Physical Exam: General exam: Appears comfortable, no acute distress HEENT: Pupils are equal and reactive to light Neck: No JVD, neck is supple trachea is midline Respiratory system: Clear breath sounds bilaterally. Gastrointestinal: Abdomen is soft, non distended, non tender, bowel sounds are present CVS: Regular rate and rhythm. No murmurs, rubs or gallops Musculoskeletal: No joint or muscle tenderness Extremities: Non tender, no edema, peripheral pulses are present Neuro: Oriented, no tremors, no focal neurological deficits Skin: No rashes, pressure ulcers on feet Results & Data Vital Signs (Past 12 Hours) Vital Signs Temp Pulse Pulse Resp BP Pulse Ox O2 Del Method 03/08/23 11:39 Room Air 03/08/23 07:36 84 03/08/23 03:04 37.1 C 79 20 134/76 96 Room Air Laboratory Results 03/08/23 04:32
--- NOTE | 2023-03-08 13:12 | Hospitalist Progress Note ---
Date of Service March 08, 2023 Assessment & Plan (1) Acute hyponatremia: Plan: Transfer to [facility] from [place] facility: Noted to have hyponatremia on admission with a sodium level of 1 27-1 28 Likely secondary to use of Bactrim Appreciate nephrology input and recommendation Sodium level went up to 135 Urine culture came back negative for any infection Right heel wound culture showed Corynebacterium species He will be finished antibiotics on 03/06/2023 as per the ID recommendation. (2) Hematuria: Plan: Trent hematuria noted in the facility Likely secondary to trauma due to Hagan catheter CT scan of the chest and pelvis did show nonspecific thickening of the bladder wall Hematuria resolved without any drop in hemoglobin lovenox resumed (3) Sacral wound: Plan: Stage IV sacral decubiti POA Documented below is the detailed progress note. Wound VAC has been replaced from today that is 03/04/2023 Antibiotic courses will be finished on 03/06/2023 (4) Aortic stenosis: Plan: Has severe aortic stenosis Monitor volume status closely (5) Paroxysmal atrial fibrillation: Plan: On the night of December 07 ; patient converted to atrial fibrillation with rapid v entricular response. He was startedamiodarone drip as per cardiology recommendation Converted back to sinus rhythm on December 08 after 5 hours. Repeat echocardiogram was done; found to have moderately reduced EF of 35 to 40% with severe Rate remains controlled without any cardiac symptoms -- Continue amiodarone plus metoprolol Monitor closely (6) Peripheral arterial disease: (7) History of CVA (cerebrovascular accident): Plan: History of recurrent CVA despite DAPT and anticoagulation therapy Chronic right hemiplegia/left arm paralysis/mostly nonverbal/expressive aphasia/dysphagia with PEG tube Continue statin, Plavix/Lovenox (8) BPH with obstruction/lower urinary tract symptoms: Plan: Hagan in place- Continue tamsulosin. (9) Type 2 diabetes mellitus: Plan: A1c of 6.9 on 09/26. Glycemic pharmacy consult, Long-acting insulin sliding scale insulin. (10) HTN (hypertension): Plan: Continue meds, BP stable Plan Full code DVT Lovenox Time spent evaluating patient, direct bedside care, chart review, placing orders, interpretation of diagnostic studies, discussion with consultants, patient, and family members, as well as other required patient management activities is 60 minutes Please note the above document was generated using voice recognition software. It may contain grammatical, syntax or spelling errors. Any formal questions or concerns about the content, text or information contained within the body of this dictation should be directly addressed to the provider for clarification Admission and Anticipated Discharge Date Admission Date: March 02, 2023 Subjective Patient seen and examined at bedside. He is comfortable; not in distress. Hemodynamically stable, afebrile and saturating well on room air. Review of Systems Review of Systems: Unobtainable due to cognitive status Physical Exam Physical Exam: Lying in bed comfortably Constitutional: + thin; no acute distress Eyes: PERRL, conjunctivae normal, anicteric sclerae ENMT: external ear and nose normal, oropharynx normal Neck: trachea midline, no thyromegaly Respiratory: no respiratory distress Auscultation: + diminished lung sounds and + crackles (Minimal crackles at the bases) Cardiovascular: Rate/Rhythm: regular rate and regular rhythm; not tachycardic Heart Sounds: normal S1, normal S2 and + murmur (3/6 ESM over precordium) Extremities: no edema Gastrointestinal (Abdomen): Inspection/Auscultation: normal bowel sounds; abdomen not distended Percussion/Palpation: abdomen soft; abdomen nontender Musculoskeletal: Extremities: + muscle atrophy; + extremities abnormal to inspection (Has muscle atrophy with flexural deformities involving the ext remities) Neurologic: awake (Minimal communication) Lymphatic: no cervical or axillary lymphadenopathy Results & Data Results & Data Vital Signs (Past 12 Hours) Vital Signs Temp Pulse Pulse Resp BP Pulse Ox O2 Del Method 03/08/23 12:35 36.9 C 82 18 128/79 97 Room Air 03/08/23 11:39 Room Air 03/08/23 07:36 84 03/08/23 03:04 37.1 C 79 20 134/76 96 Room Air Laboratory Results Laboratory Results WBC 6.36 K/ul (4.8-10.8) 03/07/23 03:45 RBC 4.55 M/uL (4.70-6.10) L 03/07/23 03:45 Hgb 10.1 g/dl (14.0-18.0) L 03/07/23 03:45 Hct 33.5 % (42.0-52.0) L 03/07/23 03:45 MCV 73.6 fL (80.0-100.0) L 03/07/23 03:45 MCH 22.2 pg (25.0-34.0) L 03/07/23 03:45 MCHC 30.1 g/dL (32.0-36.0) L 03/07/23 03:45 RDW Std Deviation 47.0 fL (36.4-46.3) H 03/07/23 03:45 RDW Coeff of Caroline 17.9 % (11.5-14.5) H 03/07/23 03:45 Plt Count 352 K/uL (130-400) 03/07/23 03:45 MPV 10.0 fL (9.4-12.4) 03/07/23 03:45 Immature Gran % (Auto) 0.5 % 03/06/23 04:08 Neut % (Auto) 63.4 % 03/06/23 04:08 Lymph % (Auto) 25.7 % 03/06/23 04:08 [place] % (Auto) 7.2 % 03/06/23 04:08 Eos % (Auto) 2.7 % 03/06/23 04:08 Baso % (Auto) 0.5 % 03/06/23 04:08 Neut # (Auto) 3.80 K/uL (1.40-6.50) 03/06/23 04:08 Lymph # (Auto) 1.54 K/uL (1.20-3.40) 03/06/23 04:08 [place] # (Auto) 0.43 K/uL (0.11-0.59) 03/06/23 04:08 Eos # (Auto) 0.16 K/uL (0.00-0.50) 03/06/23 04:08 Baso # (Auto) 0.03 K/uL (0.00-0.20) 03/06/23 04:08 Immature Gran # (Auto) 0.03 K/uL (0.01-0.20) 03/06/23 04:08 APTT 33.1 Seconds (21.0-31.0) H 03/02/23 07:55 PTT Ratio 1.2 03/02/23 07:55 Sodium 135 mmol/L (136-145) L 03/08/23 04:32 Potassium 4.2 mmol/L (3.5-5.1) 03/08/23 04:32 Chloride 102 mmol/L (98-107) 03/08/23 04:32 Carbon Dioxide 28 mmol/L (21-32) 03/08/23 04:32 Anion Gap 5 (3-11) 03/08/23 04:32 BUN 31 mg/dl (6-23) H 03/08/23 04:32 Creatinine 0.41 mg/dl (0.6-1.4) L 03/08/23 04:32 Est Cr Clr Drug Dosing 170.2 ml/min 03/08/23 04:32 Est GFR ( Amer) 144.0 ml/min 03/08/23 04:32 Est GFR (Non-Af Amer) 124.3 ml/min 03/08/23 04:32 BUN/Creatinine Ratio 75.6 (10-20) H 03/08/23 04:32 Glucose 201 mg/dl (70-99(Fasting)) H 03/08/23 04:32 POC Glucose 169 mg/dl (70-99) H 03/08/23 12:34 Osmolality 276 mOsm/kg (280-300) L 03/02/23 00:58 Calcium 8.4 mg/dl (8.6-10.3) L 03/08/23 04:32 Phosphorus 2.1 mg/dl (2.5-4.9) L 03/06/23 04:08 Magnesium 1.6 mg/dl (1.7-2.4) L 03/06/23 04:08 Total Bilirubin 0.2 mg/dl (0.2-1.0) 03/02/23 00:58 AST 12 U/L (13-39) L 03/02/23 00:58 ALT 14 U/L (7-52) 03/02/23 00:58 Alkaline Phosphatase 89 U/L (34-104) 03/02/23 00:58 Total Protein 6.4 gm/dl (6.0-8.3) 03/02/23 00:58 Albumin 3.1 gm/dl (3.4-5.0) L 03/02/23 00:58 Globulin 3.3 gm/dl (2.5-4.0) 03/02/23 00:58 Albumin/Globulin Ratio 0.9 (0.9-2) 03/02/23 00:58 Lipase 8 U/L (11-82) L 03/02/23 00:58 TSH 2.711 uIu/ml (0.300-4.500) 03/02/23 00:58 Urine Color Red 03/02/23 01:15 Urine Appearance Cloudy (Clear) A 03/02/23 01:15 Urine pH 6.5 (4.5-7.5) 03/02/23 01:15 Ur Specific [place] 1.025 (1.000-1.030) 03/02/23 01:15 Urine Protein 3+ (Negative) H 03/02/23 01:15 Urine Glucose (UA) Negative (Negative) 03/02/23 01:15 Urine Ketones Negative (Negative) 03/02/23 01:15 Urine Blood 3+ (Negative) H 03/02/23 01:15 Urine Nitrite Negative (Negative) 03/02/23 01:15 Urine Bilirubin Negative (Negative) 03/02/23 01:15 Urine Urobilinogen Negative (Negative) 03/02/23 01:15 Ur Leukocyte Esterase Trace (Negative) H 03/02/23 01:15 Urine RBC >30 /hpf (0-4) H 03/02/23 01:15 Urine WBC >30 /hpf (0-5) H 03/02/23 01:15 Ur Epithelial Cells 0-5 /lpf (0-5) 03/02/23 01:15 Urine Bacteria 1+ (Negative) H 03/02/23 01:15 Urine Osmolality 680 mOsm/kg (500-800) 03/02/23 01:15 Ur Random Sodium 122 mmol/L 03/02/23 01:15 Nasal Screen MRSA (PCR) Positive (Negative) A 03/02/23 09:15 SARS-CoV-2, RNA, NAAT NEGATIVE (NEGATIVE) 03/02/23 04:20 Blood Type A Positive 03/02/23 07:55 Antibody Screen NEGATIVE 03/02/23 07:55 Impressions Abdomen/Pelvis CT 03/02/23 00:50 Exam(s): CT ABDOMEN + PELVIS With Contrast IV Amt: 90 ML OPTIRAY 320 EXAM: CT Abdomen and Pelvis With Intravenous Contrast CLINICAL HISTORY: Reason for exam: hematuria, decub ulcer,. TECHNIQUE: Axial computed tomography images of the abdomen and pelvis with intravenous contrast. CTDI is 21.91 mGy and DLP is 1208.15 mGy-cm. Automated exposure control was utilized for the study. A dose lowering technique was utilized adhering to the principles of ALARA. CONTRAST: Patient received 90 ML OPTIRAY 320 of IV contrast COMPARISON: Dated 11/17/22 FINDINGS: Lung bases: Unremarkable. No mass. No consolidation. ABDOMEN: Liver: Unremarkable. No mass. Gallbladder and bile ducts: Unremarkable. No calcified stones. No ductal dilation. Pancreas: Unremarkable. No mass. No ductal dilation. Spleen: Unremarkable. No splenomegaly. Adrenals: Thickening of the right adrenal gland is a stable finding. Kidneys and ureters: Unremarkable. No solid mass. No hydronephrosis. Stomach and bowel: Significant stool distention of the rectum. No mucosal thickening. PELVIS: Appendix: No findings to suggest acute appendicitis. Bladder: Nonspecific moderate bladder wall thickening. Hagan catheter in place within a collapsed urinary bladder. Reproductive: Unremarkable as visualized. ABDOMEN and PELVIS: Intraperitoneal space: Unremarkable. No free air. No significant fluid collection. Bones/joints: Changes of prior sternotomy. Soft tissue irregularity over the sacrum with osseous erosion of the sacrum/coccyx (image 80 series 2). Appearance is stable from prior. Extensive dystrophic calcification within the bilateral hip adductor musculature. No acute fracture. No dislocation. Soft tissues: See above. Vasculature: Partially visualized extensive atherosclerotic disease of the coronary arteries. No abdominal aortic aneurysm. Lymph nodes: Unremarkable. No enlarged lymph nodes. Tubes, lines and devices: Gastrostomy tube in place. IMPRESSION: 1. Moderate bladder wall thickening without hydronephrosis or CT evidence for involvement of the upper urinary tract. 2. Relatively stable appearance of a sacral decubitus ulcer with erosion of the underlying bone compatible with osteomyelitis. Electronically signed by: Micky Valdez MD 03/02/23 02:31 AM Chest X-Ray 03/02/23 02:52 XR chest 1V portable HISTORY: hyponatremia COMPARISON: Chest 01/29/2023. FINDINGS: There are low lung volumes. A few left basilar linear densities favor subsegmental atelectasis. Otherwise, the lungs are clear. No evidence for pulmonary edema. The cardiac silhouette remains mildly enlarged. There are poststernotomy changes again noted. Degenerative changes within the shoulders. IMPRESSION: 1. Stable mild cardiomegaly. 2. Otherwise, no acute process within the chest. ACT 112: Negative or not required by law. Electronically signed by: Chris Bowens M.D. 03/02/2023 6:59 AM
[2023-03-08] MEDS: TAMSULOSIN HCL 0.4 MG CAP PO SCH (20:13)
[2023-03-08] MEDS: PEPTAMEN INTENSE VHP 1.0 CAL 1,000 ML BAG PEG SCH (20:42)
[2023-03-09] MEDS: TUBE FEEDING WATER FLUSH PEG SCH ×4 (01:49→18:27)
[2023-03-09] MEDS: ENOXAPARIN INJ 60 MG/0.6 ML SYR SQ SCH ×2 (05:18→18:26)
[2023-03-09 05:28] LABS: Anion Gap 5 (3-11); BUN Creatinine Ratio 88.6 (10-20); Blood Urea Nitrogen 31 mg/dl (6-23); Calcium 8.3 mg/dl (8.6-10.3); Carbon Dioxide 28 mmol/L (21-32); Chloride 103 mmol/L (98-107); Creatinine Clr Calc Pharmacy 210.8 ml/min; Est GFR (African American) > 150.0 ml/min; Est GFR (Non-African American) 132.6 ml/min; Glucose 154 mg/dl (70-99(Fasting)); Potassium 4.3 mmol/L (3.5-5.1); Sodium 136 mmol/L (136-145)
[2023-03-09] MEDS: FERROUS SULFATE 325 MG/7.4 ML UDP PO SCH (09:45)
[2023-03-09] MEDS: MULTI VIT W/MINERALS LIQUID 15 ML UDP PEG SCH (09:46)
[2023-03-09] MEDS: AMIODARONE 200 MG TAB PEG SCH ×2 (09:46→18:27)
[2023-03-09] MEDS: TAMSULOSIN HCL 0.4 MG CAP PEG SCH (09:46)
[2023-03-09] MEDS: MAGNESIUM OXIDE 400 MG TAB PEG SCH ×2 (09:46→21:05)
[2023-03-09] MEDS: LANTUS PER UNIT CHARGE SC SCH ×2 (09:50→21:11)
[2023-03-09] MEDS: INSULIN ASPART PER UNIT CHARGE SC SCH ×4 (09:50→21:07)
[2023-03-09] MEDS: CHOLESTYRAMINE LIGHT 4 GM PKT PO SCH ×2 (11:42→21:08)
[2023-03-09] MEDS ORDERED: ARTIFICIAL TEARS OPB PRN (12:18)
--- NOTE | 2023-03-09 17:10 | Hospitalist Progress Note ---
Date of Service March 09, 2023 Assessment & Plan (1) Acute hyponatremia: Plan: Acute hyponatremia Likely secondary to use of Bactrim Sodium 127>131>135>136 Appreciate nephrology input and recommendation Monitor sodium levels Right heel wound Wound culture showed Corynebacterium species Completed antibiotics on 03/06/2023 as per the ID recommendation. Continue wound care (2) Hematuria: Plan: Trent hematuria noted in the facility Likely secondary to trauma due to Hagan catheter CT scan of the chest and pelvis did show nonspecific thickening of the bladder wall Urine culture negative Hematuria resolved Lovenox resumed Monitor CBC (3) Sacral wound: Plan: Stage IV sacral decubitus Ulcer POA Continue Wound VAC Antibiotic courses completed on 03/06/2023 Continue wound care (4) Aortic stenosis: Plan: H/O severe aortic stenosis Monitor volume status closely (5) Paroxysmal atrial fibrillation: Plan: As per prior provider On the night of December 07 ; patient converted to atrial fibrillation with rapid ventricular response. He was startedamiodarone drip as per cardiology recommendation Converted back to sinus rhythm on December 08 after 5 hours. Repeat echocardiogram was done; found to have moderately reduced EF of 35 to 40% with severe Rate remains controlled without any cardiac symptoms -- Continue amiodarone, metoprolol On Lovenox SQ for anticoagulation (6) Peripheral arterial disease: (7) History of CVA (cerebrovascular accident): Plan: History of recurrent CVA despite DAPT and anticoagulation therapy Chronic right hemiplegia/left arm paralysis/mostly nonverbal/expressive aphasia/dysphagia with PEG tube Continue statin, Plavix/Lovenox (8) BPH with obstruction/lower urinary tract symptoms: Plan: Hagan in place- Continue tamsulosin. (9) Type 2 diabetes mellitus: Plan: A1c of 6.9 on 09/26. Glycemic pharmacy consult Long-acting insulin sliding scale insulin. (10) HTN (hypertension): Plan: Continue current meds Lisinopril on hold Monitor BP Plan CODE STATUS Full code DVT Px: Lovenox SQ Admission and Anticipated Discharge Date Admission Date: March 02, 2023 Subjective Patient is seen and examined at bedside Minimally verbal noticed eyes to be crusted, minimal tearing Patient denies any chest pain, dyspnea Plan for wound VAC placement today Patient denied any pain today Review of Systems Review of Systems: All systems reviewed & are unremarkable except as noted in Subjective Physical Exam Physical Exam: Physical Exam: Vitals signs as noted above General Appearance: Thin, frail, chronically appearing, no apparent distress Head: normocephalic, Atraumatic Eyes: normal inspection, EOMI Neck: supple, Trachea midline Respiratory/Chest:Decreased breath sounds, Basal crackles, No accessory muscle use Cardiovascular: S1, S2, + murmur Abdomen/GI:Soft, Non tender, Bowel sounds present, +PEG tube, +Large Sacral wound Extremities/Musculoskeletal:normal inspection, no edema, + muscle atrophy, flexure deformities of extremities Neurologic/Psych:AAO, bilateral upper extremity, right lower extremity limited range of movement, Skin: normal color, warm Results & Data Results & Data Vital Signs (Past 12 Hours) Vital Signs Temp Pulse Pulse Resp BP Pulse Ox O2 Del Method 03/09/23 14:43 Room Air 03/09/23 08:00 67 03/09/23 12:20 36.9 C 91 H 18 122/75 96 Room Air 03/09/23 09:04 36.5 C 84 18 121/73 94 Room Air Laboratory Results [facility] 03/09/23 04:57 Sodium 136 Potassium 4.3 Chloride 103 Carbon Dioxide 28 BUN 31 H Creatinine 0.35 L Glucose 154 H Calcium 8.3 L
[2023-03-09] MEDS: ATORVASTATIN 40 MG TAB PEG SCH (21:04)
[2023-03-09] MEDS: PEPTAMEN INTENSE VHP 1.0 CAL 1,000 ML BAG PEG SCH (21:04)
[2023-03-09] MEDS: TAMSULOSIN HCL 0.4 MG CAP PO SCH (21:05)
[2023-03-09] MEDS: METOPROLOL TARTRATE 25 MG TAB PEG SCH (21:07)
[2023-03-10] MEDS: TUBE FEEDING WATER FLUSH PEG SCH ×4 (01:16→18:13)
[2023-03-10 04:37] LABS: Hematocrit (blood only) 34.7 % (42.0-52.0); Hemoglobin 10.5 g/dl (14.0-18.0); Mean Corpuscular Hemoglobin 22.4 pg (25.0-34.0); Mean Corpuscular Hgb Conc 30.3 g/dL (32.0-36.0); Mean Corpuscular Volume 74.1 fL (80.0-100.0); Mean Platelet Volume 9.5 fL (9.4-12.4); Platelet Count 333 K/uL (130-400); RDW Coefficient of Variation 18.9 % (11.5-14.5); RDW Standard Deviation 49.3 fL (36.4-46.3); Red Blood Count 4.68 M/uL (4.70-6.10); White Blood Count 6.89 K/ul (4.8-10.8)
[2023-03-10 04:47] LABS: BUN Creatinine Ratio 89.7 (10-20); Calcium 8.8 mg/dl (8.6-10.3); Creatinine Clr Calc Pharmacy 188.4 ml/min; Est GFR (Non-African American) 126.8 ml/min; Magnesium 1.6 mg/dl (1.7-2.4); Potassium 4.3 mmol/L (3.5-5.1)
[2023-03-10] MEDS: ENOXAPARIN INJ 60 MG/0.6 ML SYR SQ SCH ×2 (05:25→18:12)
[2023-03-10] MEDS: MAGNESIUM OXIDE 400 MG TAB PEG SCH ×2 (09:24→20:13)
[2023-03-10] MEDS: MULTI VIT W/MINERALS LIQUID 15 ML UDP PEG SCH (09:24)
[2023-03-10] MEDS: AMIODARONE 200 MG TAB PEG SCH ×2 (09:24→18:12)
[2023-03-10] MEDS: METOPROLOL TARTRATE 25 MG TAB PEG SCH ×2 (09:24→20:13)
[2023-03-10] MEDS: TAMSULOSIN HCL 0.4 MG CAP PEG SCH (09:25)
[2023-03-10] MEDS: CLOPIDOGREL BISULFATE 75 MG TAB PEG SCH (09:25)
[2023-03-10] MEDS: FERROUS SULFATE 325 MG/7.4 ML UDP PO SCH (09:25)
[2023-03-10] MEDS: INSULIN ASPART PER UNIT CHARGE SC SCH ×4 (09:33→20:11)
[2023-03-10] MEDS: LANTUS PER UNIT CHARGE SC SCH ×2 (09:33→20:11)
[2023-03-10] MEDS: CHOLESTYRAMINE LIGHT 4 GM PKT PO SCH ×2 (11:30→20:14)
--- NOTE | 2023-03-10 13:59 | Pharmacy Report ---
Pharmacy Glycemic Short Note 2 - Date of Service March 10, 2023 - Glycemic Short BSG Results (Last 24 hours): 03/09/23 03/09/23 03/10/23 17:11 20:19 04:14 Glucose 137 H POC Glucose 119 H 124 H 03/10/23 03/10/23 07:38 12:23 Glucose POC Glucose 164 H 219 H OUTPATIENT ANTIDIABETIC REGIMEN: * Lantus and NovoLog at [facility] in [place] ASSESSMENT: 03/10 * Patient's BSGs yesterday were 821-025-108-124 mg/dL. Patient received 83 units of insulin (40 units of basal and 43 units of bolus). * Today's BSGs are 164-219 mg/dL. * Fasting trending downwards so continue Lantus. * Continue Novolog- patient may require tighter CR at breakfast. This was the case during last admission. 03/08 * Patient received total of 68 units of insulin yesterday, of which 24 units were basal insulin * Fasting BSG 201 mg/dL (tube feeds running overnight from -08). Plan to titrate up basal this AM * BSGs >160 all day yesterday, will tighten CF 03/06 * 62 year old male, transferred from [facility] for acute hyponatremia, also treating sacral wound, finishing antibiotics today. * Blood sugars above goal due to insufficient basal and bolus insulin, will increase both. * Patient is on Peptamen 50cc/hr overnight for 12 hours from 1999 to 0800 - this provides only 3.9g CHO per hour - so will cover with basal at this time. * Patient eating a pureed type 2 DM diet throughout the day. PLAN FOR INPATIENT GLYCEMIC CONTROL: * Basal insulin * Lantus 20 units SQ BID * Bolus insulin * NovoLog per scale ACHS or Q6hrs while NPO * Goal Range: Low 110 mg/dL - High 140 mg/dL * Correction Factor: 15 mg/dL/unit * Nutritional / Prandial insulin per carb ratio of 1 unit per 6 grams CHO consumed
--- NOTE | 2023-03-10 18:00 | Hospitalist Progress Note ---
Date of Service March 10, 2023 Assessment & Plan (1) Acute hyponatremia: Plan: Acute hyponatremia Likely secondary to use of Bactrim Sodium 127>131>135>136>137 Appreciate nephrology input and recommendation Monitor sodium levels Hypomagnesemia Continue Magnesium supplements Right heel wound Wound culture showed Corynebacterium species Completed antibiotics on 03/06/2023 as per the ID recommendation. Continue wound care (2) Hematuria: Plan: Trent hematuria noted in the facility Likely secondary to trauma due to Hagan catheter CT scan of the chest and pelvis did show nonspecific thickening of the bladder wall Urine culture negative Hematuria resolved Lovenox resumed Monitor CBC Hb stable (3) Sacral wound: Plan: Stage IV sacral decubitus Ulcer POA Continue Wound VAC Antibiotic courses completed on 03/06/2023 Continue wound care (4) Aortic stenosis: Plan: H/O severe aortic stenosis Monitor volume status closely (5) Paroxysmal atrial fibrillation: Plan: As per prior provider On the night of December 07 ; patient converted to atrial fibrillation with rapid ventricular response. He was startedamiodarone drip as per cardiology recommendation Converted back to sinus rhythm on December 08 after 5 hours. Repeat echocardiogram was done; found to have moderately reduced EF of 35 to 40% with severe Rate remains controlled without any cardiac symptoms -- Continue amiodarone, metoprolol On Lovenox SQ for anticoagulation (6) Peripheral arterial disease: (7) History of CVA (cerebrovascular accident): Plan: History of recurrent CVA despite DAPT and anticoagulation therapy Chronic right hemiplegia/left arm paralysis/mostly nonverbal/expressive aphasia/dysphagia with PEG tube Continue statin, Plavix/Lovenox (8) BPH with obstruction/lower urinary tract symptoms: Plan: Hagan in place- Continue tamsulosin. (9) Type 2 diabetes mellitus: Plan: A1c of 6.9 on 09/26. Glycemic pharmacy consult Long-acting insulin sliding scale insulin. (10) HTN (hypertension): Plan: Continue current meds Lisinopril on hold Monitor BP Plan CODE STATUS Full code DVT Px: Lovenox SQ Admission and Anticipated Discharge Date Admission Date: March 02, 2023 Subjective Patient is seen and examined at bedside Minimally verbal No acute issues Less eye crusting Denies any eye itching/pain Also denies any chest pain, dyspnea Discussed with patient's at bedside Review of Systems Review of Systems: All systems reviewed & are unremarkable except as noted in Subjective Physical Exam Physical Exam: Physical Exam: Vitals signs as noted above General Appearance: Thin, frail, chronically appearing, no apparent distress Head: normocephalic, Atraumatic Eyes: normal inspection, EOMI Neck: supple, Trachea midline Respiratory/Chest:Decreased breath sounds, Basal crackles, No accessory muscle use Cardiovascular: S1, S2, + murmur Abdomen/GI:Soft, Non tender, Bowel sounds present, +PEG tube, +Large Sacral wound Extremities/Musculoskeletal:normal inspection, no edema, + muscle atrophy, flexure deformities of extremities Neurologic/Psych:AAO, bilateral upper extremity, right lower extremity limited range of movement, Skin: normal color, warm Results & Data Results & Data Vital Signs (Past 12 Hours) Vital Signs Temp Pulse Pulse Resp BP Pulse Ox O2 Del Method 03/10/23 17:11 36.6 C 74 18 109/69 94 Room Air 03/10/23 16:42 Room Air 03/10/23 16:00 74 03/10/23 08:00 72 03/10/23 12:02 36.9 C 65 18 122/73 96 Room Air 03/10/23 08:41 37.0 C 75 18 120/67 94 Room Air Laboratory Results Short CBC 03/10/23 Range/Units 04:14 WBC 6.89 (4.8-10.8) K/ul Hgb 10.5 L (14.0-18.0) g/dl Hct 34.7 L (42.0-52.0) % Plt Count 333 (130-400) K/uL BMP 03/10/23 04:14 Sodium 137 Potassium 4.3 Chloride 104 Carbon Dioxide 27 BUN 35 H Creatinine 0.39 L Glucose 137 H Calcium 8.8
[2023-03-10] MEDS: PEPTAMEN INTENSE VHP 1.0 CAL 1,000 ML BAG PEG SCH (20:11)
[2023-03-10] MEDS: ATORVASTATIN 40 MG TAB PEG SCH (20:12)
[2023-03-10] MEDS: TAMSULOSIN HCL 0.4 MG CAP PO SCH (20:13)
[2023-03-11] MEDS: TUBE FEEDING WATER FLUSH PEG SCH ×4 (02:00→18:05)
[2023-03-11] MEDS: ENOXAPARIN INJ 60 MG/0.6 ML SYR SQ SCH ×2 (05:40→18:03)
[2023-03-11] MEDS: AMIODARONE 200 MG TAB PEG SCH ×2 (07:59→18:04)
[2023-03-11] MEDS: MAGNESIUM OXIDE 400 MG TAB PEG SCH ×2 (07:59→20:18)
[2023-03-11] MEDS: CLOPIDOGREL BISULFATE 75 MG TAB PEG SCH (07:59)
[2023-03-11] MEDS: METOPROLOL TARTRATE 25 MG TAB PEG SCH ×2 (07:59→20:18)
[2023-03-11] MEDS: MULTI VIT W/MINERALS LIQUID 15 ML UDP PEG SCH (08:00)
[2023-03-11] MEDS: TAMSULOSIN HCL 0.4 MG CAP PEG SCH (08:00)
[2023-03-11] MEDS: FERROUS SULFATE 325 MG/7.4 ML UDP PO SCH (08:00)
[2023-03-11] MEDS: INSULIN ASPART PER UNIT CHARGE SC SCH ×4 (09:16→20:19)
[2023-03-11] MEDS: LANTUS PER UNIT CHARGE SC SCH ×2 (09:16→20:19)
[2023-03-11] MEDS: CHOLESTYRAMINE LIGHT 4 GM PKT PO SCH ×2 (10:09→20:18)
--- NOTE | 2023-03-11 14:34 | Pharmacy Report ---
Pharmacy Glycemic Short Note 2 - Date of Service March 11, 2023 - Glycemic Short BSG Results (Last 24 hours): 03/10/23 03/11/23 03/11/23 20:05 08:15 12:06 POC Glucose 94 166 H 218 H OUTPATIENT ANTIDIABETIC REGIMEN: * Lantus and NovoLog at [facility] in [place] ASSESSMENT: 03/11/23 * BSGs yesterday were 369-671-220-94 mg/dL. Patient received 92 units of insulin (40 units of basal and 52 units of bolus). * BSGs today are 166-218 mg/dL. * Continue lantus as fasting stable. * Loosen CF since BSGs trend downwards during the day. * Patient continues on tube feeds overnight and diet during the day. 03/10 * Patient's BSGs yesterday were [phone] mg/dL. Patient received 83 units of insulin (40 units of basal and 43 units of bolus). * Today's BSGs are 164-219 mg/dL. * Fasting trending downwards so continue Lantus. * Continue Novolog- patient may require tighter CR at breakfast. This was the case during last admission. 03/08 * Patient received total of 68 units of insulin yesterday, of which 24 units were basal insulin * Fasting BSG 201 mg/dL (tube feeds running overnight from -08). Plan to titrate up basal this AM * BSGs >160 all day yesterday, will tighten CF 03/06 * 62 year old male, transferred from [facility] for acute hyponatremia, also treating sacral wound, finishing antibiotics today. * Blood sugars above goal due to insufficient basal and bolus insulin, will increase both. * Patient is on Peptamen 50cc/hr overnight for 12 hours from 1999 to 0800 - this provides only 3.9g CHO per hour - so will cover with basal at this time. * Patient eating a pureed type 2 DM diet throughout the day. PLAN FOR INPATIENT GLYCEMIC CONTROL: * Basal insulin * Lantus 20 units SQ BID * Bolus insulin * NovoLog per scale ACHS or Q6hrs while NPO * Goal Range: Low 110 mg/dL - High 140 mg/dL * Correction Factor: 20 mg/dL/unit * Nutritional / Prandial insulin per carb ratio of 1 unit per 5 grams CHO consumed
--- NOTE | 2023-03-11 17:32 | Hospitalist Progress Note ---
Date of Service March 11, 2023 Assessment & Plan (1) Acute hyponatremia: Plan: Acute hyponatremia Likely secondary to use of Bactrim Sodium 127>131>135>136>137 Appreciate nephrology input and recommendation Monitor sodium levels Resolved Hypomagnesemia Continue Magnesium supplements Right heel wound Wound culture showed Corynebacterium species Completed antibiotics on 03/06/2023 as per the ID recommendation. Continue wound care (2) Hematuria: Plan: Trent hematuria noted in the facility Likely secondary to trauma due to Hagan catheter CT scan of the chest and pelvis did show nonspecific thickening of the bladder wall Urine culture negative Hematuria resolved Lovenox resumed Monitor CBC Hb stable No recurrence currently (3) Sacral wound: Plan: Stage IV sacral decubitus Ulcer POA Continue Wound VAC Antibiotic courses completed on 03/06/2023 Continue wound care (4) Aortic stenosis: Plan: H/O severe aortic stenosis Monitor volume status closely (5) Paroxysmal atrial fibrillation: Plan: As per prior provider On the night of December 07 ; patient converted to atrial fibrillation with rapid ventricular response. He was startedamiodarone drip as per cardiology recommendation Converted back to sinus rhythm on December 08 after 5 hours. Repeat echocardiogram was done; found to have moderately reduced EF of 35 to 40% with severe Rate remains controlled without any cardiac symptoms -- Continue amiodarone, metoprolol On Lovenox SQ for anticoagulation (6) Peripheral arterial disease: (7) History of CVA (cerebrovascular accident): Plan: History of recurrent CVA despite DAPT and anticoagulation therapy Chronic right hemiplegia/left arm paralysis/mostly nonverbal/expressive aphasia/dysphagia with PEG tube Continue statin, Plavix/Lovenox (8) BPH with obstruction/lower urinary tract symptoms: Plan: Hagan in place- Continue tamsulosin. (9) Type 2 diabetes mellitus: Plan: A1c of 6.9 on 09/26. Glycemic pharmacy consult Long-acting insulin sliding scale insulin. (10) HTN (hypertension): Plan: Continue current meds Lisinopril on hold Monitor BP Plan CODE STATUS Full code DVT Px: Lovenox SQ Disposition Waiting for rehab placement Case management on board Admission and Anticipated Discharge Date Admission Date: March 02, 2023 Subjective Patient is seen and examined at bedside Minimally verbal No distress on exam eye crusting improving Poor historian Discussed with patient's at bedside today Review of Systems Review of Systems: All systems reviewed & are unremarkable except as noted in Subjective Physical Exam Physical Exam: Physical Exam: Vitals signs as noted above General Appearance: Thin, frail, chronically appearing, no apparent distress Head: normocephalic, Atraumatic Eyes: normal inspection, EOMI Neck: supple, Trachea midline Respiratory/Chest:Decreased breath sounds, Basal crackles, No accessory muscle use Cardiovascular: S1, S2, + murmur Abdomen/GI:Soft, Non tender, Bowel sounds present, +PEG tube, +Large Sacral wound Extremities/Musculoskeletal:normal inspection, no edema, + muscle atrophy, flex ure deformities of extremities Neurologic/Psych:AAO, bilateral upper extremity, right lower extremity limited range of movement, Skin: normal color, warm Results & Data Results & Data Vital Signs (Past 12 Hours) Vital Signs Temp Pulse Pulse Resp BP Pulse Ox O2 Del Method 03/11/23 15:51 75 03/11/23 15:35 37.4 C 79 20 124/74 97 Room Air 03/11/23 11:38 36.5 C 73 18 118/63 98 Room Air 03/11/23 11:10 Room Air 03/11/23 07:10 36.5 C 75 18 121/71 94 Room Air 03/11/23 07:41 86
[2023-03-11] MEDS: ACETAMINOPHEN SUSP 325 MG/10.15 ML UDC PO PRN (19:05)
[2023-03-11] MEDS: PEPTAMEN INTENSE VHP 1.0 CAL 1,000 ML BAG PEG SCH (20:17)
[2023-03-11] MEDS: TAMSULOSIN HCL 0.4 MG CAP PO SCH (20:18)
[2023-03-11] MEDS: ATORVASTATIN 40 MG TAB PEG SCH (20:18)
[2023-03-12] MEDS: TUBE FEEDING WATER FLUSH PEG SCH ×4 (01:23→17:10)
[2023-03-12] MEDS: ENOXAPARIN INJ 60 MG/0.6 ML SYR SQ SCH ×2 (04:38→17:09)
[2023-03-12] MEDS: MAGNESIUM OXIDE 400 MG TAB PEG SCH ×2 (07:38→20:29)
[2023-03-12] MEDS: CLOPIDOGREL BISULFATE 75 MG TAB PEG SCH (07:39)
[2023-03-12] MEDS: METOPROLOL TARTRATE 25 MG TAB PEG SCH ×2 (07:39→20:29)
[2023-03-12] MEDS: TAMSULOSIN HCL 0.4 MG CAP PEG SCH (07:39)
[2023-03-12] MEDS: FERROUS SULFATE 325 MG/7.4 ML UDP PO SCH (07:39)
[2023-03-12] MEDS: MULTI VIT W/MINERALS LIQUID 15 ML UDP PEG SCH (07:39)
[2023-03-12] MEDS: AMIODARONE 200 MG TAB PEG SCH ×2 (07:40→17:09)
[2023-03-12] MEDS: LANTUS PER UNIT CHARGE SC SCH ×2 (09:42→20:31)
[2023-03-12] MEDS: INSULIN ASPART PER UNIT CHARGE SC SCH ×4 (09:42→20:31)
[2023-03-12] MEDS: CHOLESTYRAMINE LIGHT 4 GM PKT PO SCH ×2 (09:43→20:30)
--- NOTE | 2023-03-12 10:22 | XRay Report ---
SINGLE VIEW CHEST CLINICAL HISTORY: Fever. FINDINGS: An AP, portable, upright chest radiograph is compared to study dated 03/02/2023. Correlation is made with chest CT dated 12/30/2022. The examination is degraded by portable technique and patient rotation. The patient is status post midline sternotomy. The heart is enlarged noting atheroscleroti c calcification of the thoracic aorta. There is prominence of the pulmonary vasculature. Scarring/ate lectasis is noted at the lung bases. No large pleural effusion or pneumothorax is seen. The skeletal structures are osteopenic. Degenerative change is noted in the shoulders. There is chronic deformity of the right scapula. IMPRESSION: Cardiomegaly with prominence of the pulmonary vasculature. Correlate clinically for evide nce of fluid overload/congestive change. ACT 112: Negative or not required by law. Electronically signed by: Donny Fernando M.D. 03/12/2023 10:20 AM
[2023-03-12 11:26] LABS: Basophils # (auto) 0.04 K/uL (0.00-0.20); Basophils % (auto) 0.3 %; Eosinophils # (auto) 0.02 K/uL (0.00-0.50); Eosinophils % (auto) 0.2 %; Hematocrit (blood only) 35.8 % (42.0-52.0); Hemoglobin 10.8 g/dl (14.0-18.0); Immature Granulocytes # (auto) 0.05 K/uL (0.01-0.20); Immature Granulocytes % (auto) 0.4 %; Lymphocytes # (auto) 1.53 K/uL (1.20-3.40); Lymphocytes % (auto) 12.9 %; Mean Corpuscular Hemoglobin 22.4 pg (25.0-34.0); Mean Corpuscular Hgb Conc 30.2 g/dL (32.0-36.0); Mean Corpuscular Volume 74.1 fL (80.0-100.0); Mean Platelet Volume 10.4 fL (9.4-12.4); Monocytes # (auto) 0.61 K/uL (0.11-0.59); Monocytes % (auto) 5.2 %; Neutrophils # (auto) 9.59 K/uL (1.40-6.50); Platelet Count 411 K/uL (130-400); RDW Coefficient of Variation 19.7 % (11.5-14.5); RDW Standard Deviation 50.1 fL (36.4-46.3); Red Blood Count 4.83 M/uL (4.70-6.10); White Blood Count 11.84 K/ul (4.8-10.8)
[2023-03-12 11:46] LABS: BUN Creatinine Ratio 87.5 (10-20); Calcium 8.7 mg/dl (8.6-10.3); Creatinine Clr Calc Pharmacy 178.4 ml/min; Est GFR (African American) 145.5 ml/min; Est GFR (Non-African American) 125.5 ml/min; Potassium 4.1 mmol/L (3.5-5.1)
[2023-03-12] MEDS: ACETAMINOPHEN SUSP 325 MG/10.15 ML UDC PO PRN (12:21)
[2023-03-12] MEDS ORDERED: PIPER/TAZO 4.5g in D5W MINI-B 100 ML IV ONE (13:15)
[2023-03-12] MEDS: DAPTOmycin 275 MG in SYRINGE 0 ML IV SCH (16:49)
[2023-03-12] MEDS: PIPERACILLIN/TAZOBACTAM 4.5 GM in DEXTROSE 5% MINI-B 100 ML IV SCH (17:08)
--- NOTE | 2023-03-12 17:23 | Hospitalist Progress Note ---
Date of Service March 12, 2023 Assessment & Plan (1) Acute hyponatremia: Plan: Acute hyponatremia Likely secondary to use of Bactrim Sodium 127>131>135>136 Appreciate nephrology input and recommendation Monitor sodium levels Resolved Fever ? Due to Sacral wound Infection --CXR:Cardiomegaly with prominence of the pulmonary vasculature. Correlate clinically for evidence of fluid overload/congestive change. -- Blood cultures pending Wound cultures pending Urine analysis pending Empirically started on daptomycin, Zosyn Hypomagnesemia Continue Magnesium supplements Right heel wound Wound culture showed Corynebacterium species Completed antibiotics on 03/06/2023 as per the ID recommendation. Continue wound care (2) Hematuria: Plan: Trent hematuria noted in the facility Likely secondary to trauma due to Hagan catheter CT scan of the chest and pelvis did show nonspecific thickening of the bladder wall Urine culture negative Hematuria resolved Lovenox resumed Monitor CBC Hb stable (3) Sacral wound: Plan: Stage IV sacral decubitus Ulcer POA Continue Wound VAC Antibiotic courses completed on 03/06/2023 Continue wound care (4) Aortic stenosis: Plan: H/O severe aortic stenosis Monitor volume status closely (5) Paroxysmal atrial fibrillation: Plan: As per prior provider On the night of December 07 ; patient converted to atrial fibrillation with rapid ventricular response. He was startedamiodarone drip as per cardiology recommendation Converted back to sinus rhythm on December 08 after 5 hours. Repeat echocardiogram was done; found to have moderately reduced EF of 35 to 40% with severe Rate remains controlled without any cardiac symptoms -- Continue amiodarone, metoprolol On Lovenox SQ for anticoagulation (6) Peripheral arterial disease: (7) History of CVA (cerebrovascular accident): Plan: History of recurrent CVA despite DAPT and anticoagulation therapy Chronic right hemiplegia/left arm paralysis/mostly nonverbal/expressive aphasia/dysphagia with PEG tube Continue statin, Plavix/Lovenox (8) BPH with obstruction/lower urinary tract symptoms: Plan: Hagan in place- Continue tamsulosin. (9) Type 2 diabetes mellitus: Plan: A1c of 6.9 on 09/26. Glycemic pharmacy consult Long-acting insulin sliding scale insulin. (10) HTN (hypertension): Plan: Continue current meds Lisinopril on hold Monitor BP Plan CODE STATUS Full code DVT Px: Lovenox SQ Disposition Waiting for rehab placement Case management on board Admission and Anticipated Discharge Date Admission Date: March 02, 2023 Subjective Patient is seen and examined at bedside Minimally verbal No distress on exam Discussed with patient's at bedside today Developed fever overnight Mild leukocytosis on blood work CXR showed no pneumonia Review of Systems Review of Systems: All systems reviewed & are unremarkable except as noted in Subjective Physical Exam Physical Exam: Physical Exam: Vitals signs as noted above General Appearance: Thin, frail, chronically appearing, no apparent distress Head: normocephalic, Atraumatic Eyes: normal inspection, EOMI Neck: supple, Trachea midline Respiratory/Chest:Decreased breath sounds, Basal crackles, No accessory muscle use Cardiovascular: S1, S2, + murmur Abdomen/GI:Soft, Non tender, Bowel sounds present, +PEG tube, +Large Sacral wound Extremities/Musculoskeletal:normal inspection, no edema, + muscle atrophy, flexure deformities of extremities Neurologic/Psych:AAO, bilateral upper extremity, right lower extremity limited range of movement, Skin: normal color, warm Results & Data Results & Data Vital Signs (Past 12 Hours) Vital Signs Temp Pulse Pulse Resp BP Pulse Ox O2 Del Method 03/12/23 15:00 03/12/23 16:22 37.1 C 81 20 123/75 93 Room Air 03/12/23 15:34 98 H 03/12/23 14:16 Room Air 03/12/23 11:46 37.6 C H 82 20 117/66 95 Room Air 03/12/23 06:58 37.6 C H 94 H 20 115/72 96 Room Air 03/12/23 09:05 98 H O2 Del Method 03/12/23 15:00 Room Air 03/12/23 16:22 03/12/23 15:34 03/12/23 14:16 03/12/23 11:46 03/12/23 06:58 03/12/23 09:05 Laboratory Results Short CBC 03/12/23 Range/Units 10:44 WBC 11.84 H (4.8-10.8) K/ul Hgb 10.8 L (14.0-18.0) g/dl Hct 35.8 L (42.0-52.0) % Plt Count 411 H (130-400) K/uL BMP 03/12/23 10:44 Sodium 136 Potassium 4.1 Chloride 104 Carbon Dioxide 25 BUN 35 H Creatinine 0.40 L Glucose 256 H Calcium 8.7
[2023-03-12 19:40] LABS: Appearance Urine Clear (Clear); Bacteria Urine Automated Negative (Negative); Bilirubin Urine Negative (Negative); Blood Urine Negative (Negative); Cast Urine Automated 0 /lpf (0-5); Color Urine Yellow; Glucose Urine UA Negative (Negative); Ketones Urine Negative (Negative); Leukocyte Esterase Urine Negative (Negative); Nitrite Urine Negative (Negative); Protein Urine 1+ (Negative); RBC Urine Automated 0-4 /hpf (0-4); Specific Gravity Urine 1.041 (1.000-1.030); Urobilinogen Urine Negative (Negative)
[2023-03-12 19:52] LABS: Calcium Oxalate Crystals Urine Present (None Prsent)
[2023-03-12] MEDS: TAMSULOSIN HCL 0.4 MG CAP PO SCH (20:30)
[2023-03-12] MEDS: PEPTAMEN INTENSE VHP 1.0 CAL 1,000 ML BAG PEG SCH (20:30)
[2023-03-13] MEDS: PIPERACILLIN/TAZOBACTAM 4.5 GM in DEXTROSE 5% MINI-B 100 ML IV SCH ×4 (00:43→23:11)
[2023-03-13] MEDS: TUBE FEEDING WATER FLUSH PEG SCH ×5 (00:44→23:12)
[2023-03-13] MEDS: ENOXAPARIN INJ 60 MG/0.6 ML SYR SQ SCH ×2 (04:50→16:20)
[2023-03-13 05:04] LABS: Basophils # (auto) 0.04 K/uL (0.00-0.20); Basophils % (auto) 0.4 %; Immature Granulocytes # (auto) 0.04 K/uL (0.01-0.20); Immature Granulocytes % (auto) 0.4 %; Lymphocytes # (auto) 1.88 K/uL (1.20-3.40); Lymphocytes % (auto) 18.3 %; Mean Corpuscular Hemoglobin 22.4 pg (25.0-34.0); Mean Corpuscular Hgb Conc 30.3 g/dL (32.0-36.0); Monocytes # (auto) 0.68 K/uL (0.11-0.59); Monocytes % (auto) 6.6 %; Neutrophils # (auto) 7.51 K/uL (1.40-6.50); Neutrophils % (auto) 73.3 %; Platelet Count 360 K/uL (130-400); RDW Coefficient of Variation 19.4 % (11.5-14.5); RDW Standard Deviation 50.4 fL (36.4-46.3); Red Blood Count 4.46 M/uL (4.70-6.10); White Blood Count 10.25 K/ul (4.8-10.8)
[2023-03-13 05:21] LABS: BUN Creatinine Ratio 83.3 (10-20); Calcium 8.3 mg/dl (8.6-10.3); Creatinine Clr Calc Pharmacy 169.9 ml/min; Est GFR (African American) 142.6 ml/min; Magnesium 1.6 mg/dl (1.7-2.4); Phosphorus 3.3 mg/dl (2.5-4.9); Potassium 3.9 mmol/L (3.5-5.1)
[2023-03-13] MEDS: CLOPIDOGREL BISULFATE 75 MG TAB PEG SCH (08:42)
[2023-03-13] MEDS: AMIODARONE 200 MG TAB PEG SCH ×2 (08:42→16:20)
[2023-03-13] MEDS: MAGNESIUM OXIDE 400 MG TAB PEG SCH ×2 (08:43→21:43)
[2023-03-13] MEDS: FERROUS SULFATE 325 MG/7.4 ML UDP PO SCH (08:43)
[2023-03-13] MEDS: METOPROLOL TARTRATE 25 MG TAB PEG SCH ×2 (08:43→21:43)
[2023-03-13] MEDS: ADVANCED PROBIOTIC 1250 MG CAPSULE PO SCH (08:43)
[2023-03-13] MEDS: MULTI VIT W/MINERALS LIQUID 15 ML UDP PEG SCH (08:44)
[2023-03-13] MEDS: TAMSULOSIN HCL 0.4 MG CAP PEG SCH (08:44)
[2023-03-13] MEDS ORDERED: SODIUM CHLORIDE 0.9% 1,000 ML IV ONE (09:03)
[2023-03-13] MEDS: INSULIN ASPART PER UNIT CHARGE SC SCH ×4 (09:29→21:32)
[2023-03-13] MEDS: LANTUS PER UNIT CHARGE SC SCH ×2 (09:30→21:32)
[2023-03-13] MEDS: CHOLESTYRAMINE LIGHT 4 GM PKT PO SCH ×2 (10:54→21:43)
[2023-03-13] MEDS: DAPTOmycin 275 MG in SYRINGE 0 ML IV SCH (13:13)
[2023-03-13] MEDS: CIPROFLOXACIN HCL 0.3% OP SOLN 2.5 ML BTL OP SCH ×4 (13:28→23:11)
--- NOTE | 2023-03-13 16:25 | Hospitalist Progress Note ---
Date of Service March 13, 2023 Assessment & Plan (1) Acute hyponatremia: Plan: Acute hyponatremia Likely secondary to use of Bactrim Sodium 127>131>135>136>139 Appreciate nephrology input and recommendation Monitor sodium levels Resolved Fever ? Due to Sacral wound Infection --CXR:Cardiomegaly with prominence of the pulmonary vasculature. Correlate clinically for evidence of fluid overload/congestive change. -- Blood cultures negative to date Wound cultures pending Urine analysis negative to date Empirically started on daptomycin, Zosyn Continue current management Hypomagnesemia Continue Magnesium supplements Right heel wound Wound culture showed Corynebacterium species Completed antibiotics on 03/06/2023 as per the ID recommendation. Continue wound care (2) Hematuria: Plan: Trent hematuria noted in the facility Likely secondary to trauma due to Hagan catheter CT scan of the chest and pelvis did show nonspecific thickening of the bladder wall Urine culture negative Hematuria resolved Lovenox resumed Monitor CBC Hb stable (3) Sacral wound: Plan: Stage IV sacral decubitus Ulcer POA Continue Wound VAC Antibiotic courses completed on 03/06/2023 Continue wound care (4) Aortic stenosis: Plan: H/O severe aortic stenosis Monitor volume status closely (5) Paroxysmal atrial fibrillation: Plan: As per prior provider On the night of December 07 ; patient converted to atrial fibrillation with rapid ventricular response. He was startedamiodarone drip as per cardiology recommendation Converted back to sinus rhythm on December 08 after 5 hours. Repeat echocardiogram was done; found to have moderately reduced EF of 35 to 40% with severe Rate remains controlled without any cardiac symptoms -- Continue amiodarone, metoprolol On Lovenox SQ for anticoagulation (6) Peripheral arterial disease: (7) History of CVA (cerebrovascular accident): Plan: History of recurrent CVA despite DAPT and anticoagulation therapy Chronic right hemiplegia/left arm paralysis/mostly nonverbal/expressive aphasia/dysphagia with PEG tube Continue statin, Plavix/Lovenox (8) BPH with obstruction/lower urinary tract symptoms: Plan: Hagan in place- Continue tamsulosin. (9) Type 2 diabetes mellitus: Plan: A1c of 6.9 on 09/26. Glycemic pharmacy consult Long-acting insulin sliding scale insulin. (10) HTN (hypertension): Plan: Continue current meds Lisinopril on hold Monitor BP Plan CODE STATUS Full code DVT Px: Lovenox SQ Disposition Waiting for rehab placement Case management on board Admission and Anticipated Discharge Date Admission Date: March 02, 2023 Subjective Patient is seen and examined at bedside Minimally verbal Discussed with patient's at bedside today Afebrile today No new complaints Leukocytosis resolved Blood pressure relatively low this morning Review of Systems Review of Systems: Other Physical Exam Physical Exam: Physical Exam: Vitals signs as noted above General Appearance: Thin, frail, chronically appearing, no apparent distress Head: normocephalic, Atraumatic Eyes: normal inspection, EOMI Neck: supple, Trachea midline Respiratory/Chest:Decreased breath sounds, Basal crackles, No accessory muscle use Cardiovascular: S1, S2, + murmur Abdomen/GI:Soft, Non tender, Bowel sounds present, +PEG tube, +Large Sacral wound Extremities/Musculoskeletal:normal inspection, no edema, + muscle atrophy, flexure deformities of extremities Neurologic/Psych:AAO, bilateral upper extremity, right lower extremity limited range of movement, Skin: normal color, warm Results & Data Results & Data Vital Signs (Past 12 Hours) Vital Signs Temp Pulse Pulse Resp BP BP Pulse Ox 03/13/23 15:34 37.4 C 101 H 20 148/78 H 96 03/13/23 11:57 36.6 C 78 18 132/78 95 03/13/23 10:36 84 03/13/23 10:26 03/13/23 07:37 36.8 C 90 18 104/53 L 97 03/13/23 04:28 37.1 C 93 H 18 126/74 94 O2 Del Method 03/13/23 15:34 Room Air 03/13/23 11:57 Room Air 03/13/23 10:36 03/13/23 10:26 Room Air 03/13/23 07:37 Room Air 03/13/23 04:28 Room Air Laboratory Results Short CBC 03/13/23 Range/Units 04:35 WBC 10.25 (4.8-10.8) K/ul Hgb 10.0 L (14.0-18.0) g/dl Hct 33.0 L (42.0-52.0) % Plt Count 360 (130-400) K/uL BMP 03/13/23 04:35 Sodium 139 Potassium 3.9 Chloride 107 Carbon Dioxide 26 BUN 35 H Creatinine 0.42 L Glucose 146 H Calcium 8.3 L Urine 03/12/23 Range/Units 19:15 Urine Color Yellow Urine Appearance Clear (Clear) Urine pH 5.0 (4.5-7.5) Ur Specific [place] 1.041 H (1.000-1.030) Urine Protein 1+ H (Negative) Urine Glucose (UA) Negative (Negative)
[2023-03-13] MEDS: ACETAMINOPHEN SUSP 325 MG/10.15 ML UDC PO PRN (17:37)
[2023-03-13] MEDS: TAMSULOSIN HCL 0.4 MG CAP PO SCH (21:43)
[2023-03-13] MEDS: PEPTAMEN INTENSE VHP 1.0 CAL 1,000 ML BAG PEG SCH (22:04)
[2023-03-14] MEDS: CIPROFLOXACIN HCL 0.3% OP SOLN 2.5 ML BTL OP SCH ×6 (03:44→23:50)
[2023-03-14] MEDS: ENOXAPARIN INJ 60 MG/0.6 ML SYR SQ SCH ×2 (03:44→16:55)
[2023-03-14 05:19] LABS: Hematocrit (blood only) 31.3 % (42.0-52.0); Hemoglobin 9.5 g/dl (14.0-18.0); Mean Corpuscular Hemoglobin 22.4 pg (25.0-34.0); Mean Corpuscular Hgb Conc 30.4 g/dL (32.0-36.0); Mean Corpuscular Volume 73.8 fL (80.0-100.0); Mean Platelet Volume 10.1 fL (9.4-12.4); Platelet Count 339 K/uL (130-400); RDW Coefficient of Variation 19.4 % (11.5-14.5); RDW Standard Deviation 50.4 fL (36.4-46.3); Red Blood Count 4.24 M/uL (4.70-6.10); White Blood Count 9.85 K/ul (4.8-10.8)
[2023-03-14 05:38] LABS: BUN Creatinine Ratio 82.9 (10-20); Calcium 8.3 mg/dl (8.6-10.3); Est GFR (Non-African American) 124.3 ml/min; Magnesium 1.7 mg/dl (1.7-2.4); Potassium 3.8 mmol/L (3.5-5.1)
[2023-03-14] MEDS: TUBE FEEDING WATER FLUSH PEG SCH ×3 (08:04→21:09)
[2023-03-14] MEDS: AMIODARONE 200 MG TAB PEG SCH ×2 (08:06→16:56)
[2023-03-14] MEDS: CLOPIDOGREL BISULFATE 75 MG TAB PEG SCH (08:06)
[2023-03-14] MEDS: ADVANCED PROBIOTIC 1250 MG CAPSULE PO SCH (08:07)
[2023-03-14] MEDS: MAGNESIUM OXIDE 400 MG TAB PEG SCH ×2 (08:08→21:20)
[2023-03-14] MEDS: TAMSULOSIN HCL 0.4 MG CAP PEG SCH (08:09)
[2023-03-14] MEDS: METOPROLOL TARTRATE 25 MG TAB PEG SCH ×2 (08:09→21:19)
[2023-03-14] MEDS: MULTI VIT W/MINERALS LIQUID 15 ML UDP PEG SCH (08:10)
[2023-03-14] MEDS: FERROUS SULFATE 325 MG/7.4 ML UDP PO SCH (08:10)
[2023-03-14] MEDS: PIPERACILLIN/TAZOBACTAM 4.5 GM in DEXTROSE 5% MINI-B 100 ML IV SCH ×2 (08:20→16:56)
--- NOTE | 2023-03-14 08:46 | Pharmacy Report ---
Pharmacy Glycemic Short Note 2 - Date of Service March 14, 2023 - Glycemic Short BSG Results (Last 24 hours): 03/13/23 03/13/23 03/13/23 12:02 17:21 20:17 Glucose POC Glucose 215 H 158 H 191 H 03/14/23 03/14/23 04:49 08:06 Glucose 162 H POC Glucose 184 H OUTPATIENT ANTIDIABETIC REGIMEN: * Lantus and NovoLog at [facility] in [place] ASSESSMENT: 03/14/23 * BSGs reasonably controlled over past 48 hours w/ exception of a couple instances of hyperglycemia * Fasting BSG elevated this morning - will continue to increase basal w/ consideration for tightening carb ratio tomorrow if appropriate * Continues on overnight Peptamen intense VHP (providing approximately 47 g CHO) 03/11/23 * BSGs yesterday were [phone] mg/dL. Patient received 92 units of insulin (40 units of basal and 52 units of bolus). * BSGs today are 166-218 mg/dL. * Continue lantus as fasting stable. * Loosen CF since BSGs trend downwards during the day. * Patient continues on tube feeds overnight and diet during the day. 03/10 * Patient's BSGs yesterday were [phone] mg/dL. Patient received 83 units of insulin (40 units of basal and 43 units of bolus). * Today's BSGs are 164-219 mg/dL. * Fasting trending downwards so continue Lantus. * Continue Novolog- patient may require tighter CR at breakfast. This was the case during last admission. 03/08 * Patient received total of 68 units of insulin yesterday, of which 24 units were basal insulin * Fasting BSG 201 mg/dL (tube feeds running overnight from -). Plan to titrate up basal this AM * BSGs >160 all day yesterday, will tighten CF 03/06 * 62 year old male, transferred from [facility] for acute hyponatremia, also treating sacral wound, finishing antibiotics today. * Blood sugars above goal due to insufficient basal and bolus insulin, will increase both. * Patient is on Peptamen 50cc/hr overnight for 12 hours from 2000 to 0800 - this provides only 3.9g CHO per hour - so will cover with basal at this time. * Patient eating a pureed type 2 DM diet throughout the day. PLAN FOR INPATIENT GLYCEMIC CONTROL: * Basal insulin * Lantus 24 units SC BID * Bolus insulin * NovoLog per scale ACHS or Q6hrs while NPO * Goal Range: Low 110 mg/dL - High 140 mg/dL * Correction Factor: 20 mg/dL/unit * Nutritional / Prandial insulin per carb ratio of 1 unit per 5 grams CHO consumed
[2023-03-14] MEDS: LANTUS PER UNIT CHARGE SC SCH ×2 (09:34→21:40)
[2023-03-14] MEDS: INSULIN ASPART PER UNIT CHARGE SC SCH ×4 (09:34→21:12)
[2023-03-14] MEDS: CHOLESTYRAMINE LIGHT 4 GM PKT PO SCH ×2 (10:44→21:33)
[2023-03-14] MEDS: DAPTOmycin 275 MG in SYRINGE 0 ML IV SCH ×2 (13:14→15:33)
[2023-03-14] MEDS ORDERED: FUROSEMIDE INJ 20 MG/2 ML VIAL IV ONE (15:46)
--- NOTE | 2023-03-14 15:49 | Hospitalist Progress Note ---
Date of Service March 14, 2023 Assessment & Plan (1) Acute hyponatremia: Plan: Acute hyponatremia Likely secondary to use of Bactrim Sodium 127>131>135>136>137 Appreciate nephrology input and recommendation Monitor sodium levels Resolved Fever ? Due to Sacral wound Infection --CXR:Cardiomegaly with prominence of the pulmonary vasculature. Correlate clinically for evidence of fluid overload/congestive change. -- Blood cultures negative to date Wound cultures pending Urine culture negative Empirically started on daptomycin, Zosyn Will titrate antibiotics as needed Hypomagnesemia Continue Magnesium supplements Right heel wound Wound culture showed Corynebacterium species Completed antibiotics on 03/06/2023 as per the ID recommendation. Continue wound care (2) Hematuria: Plan: Trent hematuria noted in the facility Likely secondary to trauma due to Hagan catheter CT scan of the chest and pelvis did show nonspecific thickening of the bladder wall Urine culture negative Hematuria resolved Lovenox resumed Monitor CBC Hb stable (3) Sacral wound: Plan: Stage IV sacral decubitus Ulcer POA Continue Wound VAC Antibiotic courses completed on 03/06/2023 Continue wound care (4) Aortic stenosis: Plan: H/O severe aortic stenosis IV Lasix as needed as could be developing volume overload Monitor volume status (5) Paroxysmal atrial fibrillation: Plan: As per prior provider On the night of December 07 ; patient converted to atrial fibrillation with rapid ventricular response. He was startedamiodarone drip as per cardiology recommendation Converted back to sinus rhythm on December 08 after 5 hours. Repeat echocardiogram was done; found to have moderately reduced EF of 35 to 40% with severe Rate remains controlled without any cardiac symptoms -- Continue amiodarone, metoprolol On Lovenox SQ for anticoagulation (6) Peripheral arterial disease: (7) History of CVA (cerebrovascular accident): Plan: History of recurrent CVA despite DAPT and anticoagulation therapy Chronic right hemiplegia/left arm paralysis/mostly nonverbal/expressive aphasia/dysphagia with PEG tube Continue statin, Plavix/Lovenox (8) BPH with obstruction/lower urinary tract symptoms: Plan: Hagan in place- Continue tamsulosin. (9) Type 2 diabetes mellitus: Plan: A1c of 6.9 on 09/26. Glycemic pharmacy consult Long-acting insulin sliding scale insulin. (10) HTN (hypertension): Plan: Continue metoprolol Resume lisinopril as able Monitor BP Plan CODE STATUS Full code DVT Px: Yolanox SQ Disposition To be determined Admission and Anticipated Discharge Date Admission Date: March 02, 2023 Subjective Patient is seen and examined at bedside Minimally verbal Discussed with patient's at bedside today Noted to have some mild respiratory distress BP stable today Blood cultures negative to date Review of Systems Review of Systems: Other Physical Exam Physical Exam: Physical Exam: Vitals signs as noted above General Appearance: Thin, frail, chronically appearing, no apparent distress Head: normocephalic, Atraumatic Eyes: normal inspection, EOMI Neck: supple, Trachea midline Respiratory/Chest:Decreased breath sounds, Basal crackles, No accessory muscle use Cardiovascular: S1, S2, + murmur Abdomen/GI:Soft, Non tender, Bowel sounds present, +PEG tube, +Large Sacral wound Extremities/Musculoskeletal:normal inspection, no edema, + muscle atrophy, flexure deformities of extremities Neurologic/Psych:AAO, bilateral upper extremity, right lower extremity limited range of movement, Skin: normal color, warm Results & Data Results & Data Vital Signs (Past 12 Hours) Vital Signs Temp Pulse Pulse Resp BP Pulse Ox Pulse Ox 03/14/23 15:00 94 03/14/23 14:54 36.6 C 76 18 142/78 H 94 03/14/23 11:30 37.2 C 82 18 124/86 95 03/14/23 10:16 89 03/14/23 10:08 03/14/23 07:51 37.4 C 83 18 129/71 95 03/14/23 03:50 37.7 C H 84 20 120/74 96 O2 Del Method O2 Del Method 03/14/23 15:00 Room Air 03/14/23 14:54 Room Air 03/14/23 11:30 Room Air 03/14/23 10:16 03/14/23 10:08 Room Air 03/14/23 07:51 Room Air 03/14/23 03:50 Room Air Laboratory Results Short CBC 03/14/23 Range/Units 04:49 WBC 9.85 (4.8-10.8) K/ul Hgb 9.5 L (14.0-18.0) g/dl Hct 31.3 L (42.0-52.0) % Plt Count 339 (130-400) K/uL BMP 03/14/23 04:49 Sodium 137 Potassium 3.8 Chloride 106 Carbon Dioxide 25 BUN 34 H Creatinine 0.41 L Glucose 162 H Calcium 8.3 L
[2023-03-14] MEDS: PEPTAMEN INTENSE VHP 1.0 CAL 1,000 ML BAG PEG SCH (21:05)
[2023-03-14] MEDS: TAMSULOSIN HCL 0.4 MG CAP PO SCH (21:19)
[2023-03-14] MEDS: ACETAMINOPHEN SUSP 325 MG/10.15 ML UDC PO PRN (21:40)
[2023-03-14] MEDS ORDERED: ALBUMIN 25% 25 GM/100 ML VIAL IV ONE (23:27)
[2023-03-15] MEDS: TUBE FEEDING WATER FLUSH PEG SCH ×4 (01:45→20:54)
[2023-03-15] MEDS: PIPERACILLIN/TAZOBACTAM 4.5 GM in DEXTROSE 5% MINI-B 100 ML IV SCH ×3 (01:45→16:54)
[2023-03-15] MEDS: CIPROFLOXACIN HCL 0.3% OP SOLN 2.5 ML BTL OP SCH ×5 (04:32→20:40)
[2023-03-15] MEDS: ENOXAPARIN INJ 60 MG/0.6 ML SYR SQ SCH ×2 (04:32→16:53)
[2023-03-15] MEDS: AMIODARONE 200 MG TAB PEG SCH ×2 (08:02→16:53)
[2023-03-15] MEDS: CLOPIDOGREL BISULFATE 75 MG TAB PEG SCH (08:02)
[2023-03-15] MEDS: METOPROLOL TARTRATE 25 MG TAB PEG SCH ×2 (08:03→20:44)
[2023-03-15] MEDS: MULTI VIT W/MINERALS LIQUID 15 ML UDP PEG SCH (08:03)
[2023-03-15] MEDS: ADVANCED PROBIOTIC 1250 MG CAPSULE PO SCH (08:03)
[2023-03-15] MEDS: MAGNESIUM OXIDE 400 MG TAB PEG SCH ×2 (08:03→20:43)
[2023-03-15] MEDS: FERROUS SULFATE 325 MG/7.4 ML UDP PO SCH (08:03)
[2023-03-15] MEDS: TAMSULOSIN HCL 0.4 MG CAP PEG SCH (08:03)
[2023-03-15] MEDS: INSULIN ASPART PER UNIT CHARGE SC SCH ×4 (09:41→21:13)
[2023-03-15] MEDS: LANTUS PER UNIT CHARGE SC SCH ×2 (09:41→21:13)
[2023-03-15] MEDS: CHOLESTYRAMINE LIGHT 4 GM PKT PO SCH ×2 (10:27→21:48)
--- NOTE | 2023-03-15 11:50 | XRay Report ---
XR chest 1V portable CLINICAL HISTORY: Dyspnea. COMPARISON STUDY: Chest CT December 30, 2022. Chest radiograph March 12, 2023. FINDINGS: Median sternotomy wires and mediastinal surgical clips are again noted. Cardiomegaly is unc hanged. There is mild interstitial thickening. Moderate left basilar opacity is present. There is no consolidation within the right lung. There is no pneumothorax. No definite pleural effusion. IMPRESSION: 1. Cardiomegaly. Mild interstitial thickening which favors edema. 2. Moderate left basilar opacity. This could reflect pneumonia or atelectasis. Radiographic follow-up to ensure resolution is recommended. ACT 112: Negative or not required by law. Electronically signed by: Pal Blunt M.D. 03/15/2023 11:49 AM
[2023-03-15] MEDS: DAPTOmycin 275 MG in SYRINGE 0 ML IV SCH (13:20)
[2023-03-15] MEDS ORDERED: FUROSEMIDE INJ 20 MG/2 ML VIAL IV ONE (13:30)
--- NOTE | 2023-03-15 16:50 | Hospitalist Progress Note ---
Date of Service March 15, 2023 Assessment & Plan (1) Acute hyponatremia: Plan: Acute hyponatremia Likely secondary to use of Bactrim Sodium 127>131>135>136>137 Appreciate nephrology input and recommendation Monitor sodium levels Resolved Fever Likely due to Sacral wound Infection --CXR:Cardiomegaly with prominence of the pulmonary vasculature. Correlate clinically for evidence of fluid overload/congestive change. -- Blood cultures negative to date Wound cultures pending Urine culture negative Empirically on daptomycin, Zosyn Will titrate antibiotics as needed Will obtain wound cultures as able Hypomagnesemia Continue Magnesium supplements Right heel wound Wound culture showed Corynebacterium species Completed antibiotics on 03/06/2023 as per the ID recommendation. Continue wound care (2) Hematuria: Plan: Trent hematuria noted in the facility Likely secondary to trauma due to Hagan catheter CT scan of the chest and pelvis did show nonspecific thickening of the bladder wall Urine culture negative Hematuria resolved Lovenox resumed Monitor CBC Hb stable (3) Sacral wound: Plan: Stage IV sacral decubitus Ulcer POA Continue Wound VAC Continue wound care Restarted on Antibiotics as above (4) Aortic stenosis: Plan: H/O severe aortic stenosis IV Lasix as needed as could be developing volume overload Monitor volume status (5) Paroxysmal atrial fibrillation: Plan: As per prior provider On the night of December 07 ; patient converted to atrial fibrillation with rapid ventricular response. He was startedamiodarone drip as per cardiology recommendation Converted back to sinus rhythm on December 08 after 5 hours. Repeat echocardiogram was done; found to have moderately reduced EF of 35 to 40% with severe Rate remains controlled without any cardiac symptoms -- Continue amiodarone, metoprolol On Lovenox SQ for anticoagulation (6) Peripheral arterial disease: (7) History of CVA (cerebrovascular accident): Plan: History of recurrent CVA despite DAPT and anticoagulation therapy Chronic right hemiplegia/left arm paralysis/mostly nonverbal/expressive aphasia/dysphagia with PEG tube Continue statin, Plavix/Lovenox (8) BPH with obstruction/lower urinary tract symptoms: Plan: Hagan in place Continue tamsulosin. (9) Type 2 diabetes mellitus: Plan: A1c of 6.9 on 09/26. Glycemic pharmacy consult Long-acting insulin sliding scale insulin. (10) HTN (hypertension): Plan: Continue metoprolol Resume lisinopril as able Monitor BP Plan CODE STATUS Full code DVT Px: Lovenox SQ Disposition To be determined Admission and Anticipated Discharge Date Admission Date: March 02, 2023 Subjective Patient is seen and examined at bedside Minimally verbal Noted to have mild respiratory distress during my encounter Discussed with patient's at bedside Blood cultures negative to date Wound cultures to be collected Review of Systems Review of Systems: Other Physical Exam Physical Exam: Physical Exam: Vitals signs as noted above General Appearance: Thin, frail, chronically appearing, no apparent distress Head: normocephalic, Atraumatic Eyes: normal inspection, EOMI Neck: supple, Trachea midline Respiratory/Chest:Decreased breath sounds, Basal crackles, No accessory muscle use Cardiovascular: S1, S2, + murmur Abdomen/GI:Soft, Non tender, Bowel sounds present, +PEG tube, +Large Sacral wound Extremities/Musculoskeletal:normal inspection, no edema, + muscle atrophy, flexure deformities of extremities Neurologic/Psych:AAO, bilateral upper extremity, right lower extremity limited range of movement, Skin: normal color, warm Results & Data Results & Data Vital Signs (Past 12 Hours) Vital Signs Temp Pulse Pulse Resp BP Pulse Ox Pulse Ox 03/15/23 15:34 37.1 C 79 20 140/69 95 03/15/23 15:00 96 03/15/23 12:06 37.2 C 77 16 107/65 92 03/15/23 09:17 03/15/23 09:15 83 03/15/23 07:52 36.9 C 83 16 122/72 96 O2 Del Method O2 Del Method 03/15/23 15:34 Room Air 03/15/23 15:00 Room Air 03/15/23 12:06 Room Air 03/15/23 09:17 Room Air 03/15/23 09:15 03/15/23 07:52 Room Air
[2023-03-15] MEDS: TAMSULOSIN HCL 0.4 MG CAP PO SCH (20:42)
[2023-03-15] MEDS: ACETAMINOPHEN SUSP 325 MG/10.15 ML UDC PO PRN (20:42)
[2023-03-15] MEDS: PEPTAMEN INTENSE VHP 1.0 CAL 1,000 ML BAG PEG SCH (21:52)
[2023-03-16] MEDS: CIPROFLOXACIN HCL 0.3% OP SOLN 2.5 ML BTL OP SCH ×6 (01:03→21:18)
[2023-03-16] MEDS: PIPERACILLIN/TAZOBACTAM 4.5 GM in DEXTROSE 5% MINI-B 100 ML IV SCH ×3 (01:03→18:17)
[2023-03-16] MEDS: TUBE FEEDING WATER FLUSH PEG SCH ×4 (01:04→21:17)
[2023-03-16] MEDS: ENOXAPARIN INJ 60 MG/0.6 ML SYR SQ SCH ×2 (05:14→18:18)
[2023-03-16 06:27] LABS: Hematocrit (blood only) 31.2 % (42.0-52.0); Hemoglobin 9.6 g/dl (14.0-18.0); Mean Corpuscular Hemoglobin 22.5 pg (25.0-34.0); Mean Corpuscular Hgb Conc 30.8 g/dL (32.0-36.0); Mean Corpuscular Volume 73.2 fL (80.0-100.0); Mean Platelet Volume 10.4 fL (9.4-12.4); Platelet Count 385 K/uL (130-400); RDW Coefficient of Variation 19.4 % (11.5-14.5); Red Blood Count 4.26 M/uL (4.70-6.10); White Blood Count 9.18 K/ul (4.8-10.8)
[2023-03-16 06:35] LABS: BUN Creatinine Ratio 102.5 (10-20); Calcium 8.4 mg/dl (8.6-10.3); Creatinine Clr Calc Pharmacy 191.3 ml/min; Est GFR (African American) 145.5 ml/min; Est GFR (Non-African American) 125.5 ml/min; Magnesium 1.7 mg/dl (1.7-2.4); Potassium 3.9 mmol/L (3.5-5.1)
[2023-03-16] MEDS: AMIODARONE 200 MG TAB PEG SCH ×2 (08:23→18:18)
[2023-03-16] MEDS: METOPROLOL TARTRATE 25 MG TAB PEG SCH ×2 (08:24→21:16)
[2023-03-16] MEDS: MULTI VIT W/MINERALS LIQUID 15 ML UDP PEG SCH (08:25)
[2023-03-16] MEDS: FERROUS SULFATE 325 MG/7.4 ML UDP PO SCH (08:25)
[2023-03-16] MEDS: ADVANCED PROBIOTIC 1250 MG CAPSULE PO SCH (08:26)
[2023-03-16] MEDS: MAGNESIUM OXIDE 400 MG TAB PEG SCH ×2 (08:27→21:16)
[2023-03-16] MEDS: TAMSULOSIN HCL 0.4 MG CAP PEG SCH (08:28)
[2023-03-16] MEDS: INSULIN ASPART PER UNIT CHARGE SC SCH ×4 (09:38→21:44)
[2023-03-16] MEDS: CHOLESTYRAMINE LIGHT 4 GM PKT PO SCH ×2 (10:26→21:36)
[2023-03-16] MEDS: LANTUS PER UNIT CHARGE SC SCH ×2 (10:32→21:43)
[2023-03-16] MEDS: CLOPIDOGREL BISULFATE 75 MG TAB PEG SCH (10:33)
--- NOTE | 2023-03-16 14:03 | Communication Note ---
Date of Service: March 16, 2023 General surgery can evaluate sacral ulcer at the next wound vac change, Please reach out. Thank you.
[2023-03-16] MEDS: DAPTOmycin 275 MG in SYRINGE 0 ML IV SCH (16:03)
[2023-03-16] MEDS: ACETAMINOPHEN SUSP 325 MG/10.15 ML UDC PO PRN (17:25)
--- NOTE | 2023-03-16 17:42 | Hospitalist Progress Note ---
Date of Service March 16, 2023 Assessment & Plan (1) Acute hyponatremia: Plan: Acute hyponatremia Likely secondary to use of Bactrim Sodium 127>131>135>136>137>139 Appreciate nephrology input and recommendation Monitor sodium levels Resolved Fever Likely due to Sacral wound Infection --CXR:Cardiomegaly with prominence of the pulmonary vasculature. Correlate clinically for evidence of fluid overload/congestive change. -- Blood cultures negative to date Wound cultures pending Urine culture negative Continue daptomycinJazzy Consulted surgery to help with possible need for debridement Hypomagnesemia Continue Magnesium supplements Right heel wound Wound culture showed Corynebacterium species Completed antibiotics on 03/06/2023 as per the ID recommendation. Continue wound care (2) Hematuria: Plan: Trent hematuria noted in the facility Likely secondary to trauma due to Hagan catheter CT scan of the chest and pelvis did show nonspecific thickening of the bladder wall Urine culture negative Hematuria resolved Lovenox resumed Monitor CBC Hb stable (3) Sacral wound: Plan: Stage IV sacral decubitus Ulcer POA Continue Wound VAC Continue wound care Restarted on Antibiotics as above (4) Aortic stenosis: Plan: H/O severe aortic stenosis IV Lasix as needed as could be developing volume overload Monitor volume status (5) Paroxysmal atrial fibrillation: Plan: As per prior provider On the night of December 07 ; patient converted to atrial fibrillation with rapid ventricular response. He was startedamiodarone drip as per cardiology recommendation Converted back to sinus rhythm on December 08 after 5 hours. Repeat echocardiogram was done; found to have moderately reduced EF of 35 to 40% with severe Rate remains controlled without any cardiac symptoms -- Continue amiodarone, metoprolol On Lovenox SQ for anticoagulation (6) Peripheral arterial disease: (7) History of CVA (cerebrovascular accident): Plan: History of recurrent CVA despite DAPT and anticoagulation therapy Chronic right hemiplegia/left arm paralysis/mostly nonverbal/expressive aphasia/dysphagia with PEG tube Continue statin, Plavix/Lovenox (8) BPH with obstruction/lower urinary tract symptoms: Plan: Hagan in place Continue tamsulosin. (9) Type 2 diabetes mellitus: Plan: A1c of 6.9 on 09/26. Glycemic pharmacy consult Long-acting insulin sliding scale insulin. (10) HTN (hypertension): Plan: Continue metoprolol Resume lisinopril as able Monitor BP Plan CODE STATUS Full code DVT Px: Nguyễnx SQ Disposition To be determined Admission and Anticipated Discharge Date Admission Date: March 02, 2023 Subjective Patient is seen and examined at bedside Minimally verbal Denies any chest pain, dyspnea, abdominal pain today Intermittently noted to have fever Discussed with surgery today Also discussed with patient's family at bedside Review of Systems Review of Systems: Other Physical Exam Physical Exam: Physical Exam: Vitals signs as noted above General Appearance: Thin, frail, chronically appearing, no apparent distress Head: normocephalic, Atraumatic Eyes: normal inspection, EOMI Neck: supple, Trachea midline Respiratory/Chest:Decreased breath sounds, Basal crackles, No accessory muscle use Cardiovascular: S1, S2, + murmur Abdomen/GI:Soft, Non tender, Bowel sounds present, +PEG tube, +Large Sacral wound Extremities/Musculoskeletal:normal inspection, no edema, + muscle atrophy, flexure deformities of extremities Neurologic/Psych:AAO, bilateral upper extremity, right lower extremity limited range of movement, Skin: normal color, warm Results & Data Results & Data Vital Signs (Past 12 Hours) Vital Signs Temp Pulse Pulse Resp BP Pulse Ox O2 Del Method 03/16/23 15:00 77 03/16/23 15:29 38.0 C H 86 20 145/72 H 92 Room Air 03/16/23 09:51 73 03/16/23 09:51 Room Air 03/16/23 07:41 37.3 C 77 16 139/72 97 Room Air Laboratory Results Short CBC 03/16/23 Range/Units 05:22 WBC 9.18 (4.8-10.8) K/ul Hgb 9.6 L (14.0-18.0) g/dl Hct 31.2 L (42.0-52.0) % Plt Count 385 (130-400) K/uL BMP 03/16/23 05:22 Sodium 139 Potassium 3.9 Chloride 107 Carbon Dioxide 27 BUN 41 H Creatinine 0.40 L Glucose 105 H Calcium 8.4 L
[2023-03-16] MEDS: TAMSULOSIN HCL 0.4 MG CAP PO SCH (21:16)
[2023-03-16] MEDS: PEPTAMEN INTENSE VHP 1.0 CAL 1,000 ML BAG PEG SCH (21:17)
[2023-03-17] MEDS: CIPROFLOXACIN HCL 0.3% OP SOLN 2.5 ML BTL OP SCH ×6 (01:34→20:46)
[2023-03-17] MEDS: PIPERACILLIN/TAZOBACTAM 4.5 GM in DEXTROSE 5% MINI-B 100 ML IV SCH ×3 (01:34→17:23)
[2023-03-17] MEDS: TUBE FEEDING WATER FLUSH PEG SCH ×4 (01:35→18:35)
[2023-03-17] MEDS: ENOXAPARIN INJ 60 MG/0.6 ML SYR SQ SCH ×2 (05:45→17:26)
[2023-03-17] MEDS: AMIODARONE 200 MG TAB PEG SCH ×2 (08:17→17:28)
[2023-03-17] MEDS: ADVANCED PROBIOTIC 1250 MG CAPSULE PO SCH (08:19)
[2023-03-17] MEDS: CLOPIDOGREL BISULFATE 75 MG TAB PEG SCH (08:19)
[2023-03-17] MEDS: METOPROLOL TARTRATE 25 MG TAB PEG SCH ×2 (08:20→22:15)
[2023-03-17] MEDS: MAGNESIUM OXIDE 400 MG TAB PEG SCH ×2 (08:20→22:15)
[2023-03-17] MEDS: TAMSULOSIN HCL 0.4 MG CAP PEG SCH (08:20)
[2023-03-17] MEDS: MULTI VIT W/MINERALS LIQUID 15 ML UDP PEG SCH (08:21)
[2023-03-17] MEDS: FERROUS SULFATE 325 MG/7.4 ML UDP PO SCH (08:21)
[2023-03-17 09:45] LABS: Calcium 8.6 mg/dl (8.6-10.3); Creatinine Clr Calc Pharmacy 176.7 ml/min; Est GFR (African American) 141.2 ml/min; Est GFR (Non-African American) 121.9 ml/min; Potassium 4.2 mmol/L (3.5-5.1)
[2023-03-17] MEDS: INSULIN ASPART PER UNIT CHARGE SC SCH ×4 (09:49→21:11)
[2023-03-17] MEDS: LANTUS PER UNIT CHARGE SC SCH ×2 (09:50→21:14)
--- NOTE | 2023-03-17 10:31 | XRay Report ---
SINGLE VIEW CHEST CLINICAL HISTORY: Dyspnea. FINDINGS: An AP, portable, upright chest radiograph is compared to study dated 03/15/2023. Correlatio n is made with chest CT dated 12/30/2022. The patient is status post midline sternotomy. The heart is enlarged noting atherosclerotic calcification of the thoracic aorta. There is pulmonary vascular shannan estion. Left basilar opacities are again noted. No large pleural effusion or pneumothorax is seen. Th e skeletal structures are osteopenic. Chronic deformity of the right scapula is unchanged. Arthritic change is seen in the shoulders and spine. IMPRESSION: 1. Cardiomegaly with evidence of congestive failure. 2. Left basilar opacities are similar to previous. This could represent scarring/atelectasis versus a n infectious/inflammatory pneumonitis. Clinical correlation will be required. ACT 112: Negative or not required by law. Electronically signed by: Donny Fernando M.D. 03/17/2023 10:30 AM
[2023-03-17] MEDS ORDERED: OPTIRAY 320 100ml IV ONE (10:48)
[2023-03-17] MEDS: CHOLESTYRAMINE LIGHT 4 GM PKT PO SCH ×2 (10:59→22:15)
--- NOTE | 2023-03-17 11:18 | CT Scan Report ---
ABDOMEN AND PELVIS CT WITH IV CONTRAST CT DOSE: 1351.09 mGy.cm HISTORY: Follow-up study in a patient with reported sacral decubitus ulcer decub ulcer TECHNIQUE: Multiaxial CT images of the abdomen and pelvis were performed following the IV administrat ion of 93 cc of Optiray, A dose lowering technique was utilized adhering to the principles of ALARA. COMPARISON STUDY: 03/02/2023, 11/17/2022. FINDINGS: Cardiomegaly. Prior median sternotomy. Small moderate layering pleural effusions with mild dependent bibasilar consolidation. Limited exam secondary to opportunity positioning and respiratory motion. 3.7 x 6.0 cm wedge-shaped subcapsular hypodensity within the anteroinferior spleen is noted with mild adjacent Splenic stranding, new from prior. Mildly atrophic pancreas. Unchanged mild nodular thickening of the adrenal glands. Mildly contracted gallbladder. The liver is within normal limits. Patent portal vein . Unchanged appearance of the kidneys with chronic renal infarcts. 2.1 cm left renal cyst. Decompress ed bladder with wall thickening and Hagan catheter in place. Air within the bladder lumen is present. Prostatomegaly. Atherosclerosis of the aorta without aneurysm. There is no lymphadenopathy identified. No bowel obstr uction. A gastrostomy tube is in place. Fecal retention results in rectal distention. Mild rectal wal l thickening with perirectal stranding. There is moderate to extensive fecal retention throughout. Th e appendix is not visualized. Chronic sacral decubitus ulcer is again noted with extension to the pos terior bony cortex of the sacrum and coccyx. Erosion involving the posterior elements at L5 and also some the coccyx again noted with periosteal elevation and sclerosis. Fecal material is noted in the a nus and medial gluteal cleft. Adjacent cellulitis without abscess. Chronic findings of the left forea rm. Mild superior endplate compression at L4 is unchanged. Heterotopic ossifications are noted adjacent to the proximal femora bilaterally extending into the ad jacent musculature. IMPRESSION: 1. Chronic sacral decubitus ulcer with chronic sacrococcygeal osteomyelitis again noted. There is david lulitis without abscess. 2. There is an acute splenic infarct measuring up to 6 mm with chronic renal infarcts and cortical sc arring again noted. 3. No bowel obstruction. 4. Gastrostomy tube in place. 5. Constipation with stercoral proctitis. 6. Small to moderate pleural effusions with mild bibasilar consolidation. 7. Additional findings as above. ACT 112: Negative or not required by law. The above report was generated using voice recognition software. It may contain grammatical, syntax o r spelling errors. Electronically signed by: Abdon Gr M.D. 03/17/2023 11:16 AM
[2023-03-17] MEDS ORDERED: FUROSEMIDE INJ 20 MG/2 ML VIAL IV ONE (12:30)
[2023-03-17] MEDS: DAPTOmycin 275 MG in SYRINGE 0 ML IV SCH (13:42)
--- NOTE | 2023-03-17 16:05 | Hospitalist Progress Note ---
Date of Service March 17, 2023 Assessment & Plan (1) Acute hyponatremia: Plan: Acute hyponatremia Likely secondary to use of Bactrim Sodium 127>131>135>136>137>140 Appreciate nephrology input and recommendation Monitor sodium levels Resolved Fever Likely due to Sacral wound Infection --CXR:Cardiomegaly with prominence of the pulmonary vasculature. Correlate clinically for evidence of fluid overload/congestive change. -- Blood cultures negative to date Wound cultures pending Urine culture negative Continue daptomycin, Zosyn Consulted surgery to help with possible need for debridement Acute splenic infarct Chronic renal infarcts --CT ABD:Chronic sacral decubitus ulcer with chronic sacrococcygeal osteomyelitis again noted. There is cellulitis without abscess. There is an acute splenic infarct measuring up to 6 mm with chronic renal infarcts and cortical scarring again noted. No bowel obstruction. Gastrostomy tube in place. --Continue therapeutic Lovenox -- Discussed with surgery on 03/17/2023: No further intervention needed for acute splenic infarct Hypomagnesemia Continue Magnesium supplements Right heel wound Wound culture showed Corynebacterium species Completed antibiotics on 03/06/2023 as per the ID recommendation. Continue wound care (2) Hematuria: Plan: Trent hematuria noted in the facility Likely secondary to trauma due to Hagan catheter CT scan of the chest and pelvis did show nonspecific thickening of the bladder wall Urine culture negative Hematuria resolved Lovenox resumed Monitor CBC Hb stable (3) Sacral wound: Plan: Stage IV sacral decubitus Ulcer POA Continue Wound VAC Continue wound care Restarted on Antibiotics as above (4) Aortic stenosis: Plan: H/O severe aortic stenosis IV Lasix as needed as could be developing volume overload Monitor volume status (5) Paroxysmal atrial fibrillation: Plan: As per prior provider On the night of December 07 ; patient converted to atrial fibrillation with rapid ventricular response. He was startedamiodarone drip as per cardiology recommendation Converted back to sinus rhythm on December 08 after 5 hours. Repeat echocardiogram was done; found to have moderately reduced EF of 35 to 40% with severe Rate remains controlled without any cardiac symptoms -- Continue amiodarone, metoprolol On therapeutic dose of Lovenox SQ for anticoagulation (6) Peripheral arterial disease: (7) History of CVA (cerebrovascular accident): Plan: History of recurrent CVA despite DAPT and anticoagulation therapy Chronic right hemiplegia/left arm paralysis/mostly nonverbal/expressive aphasia/dysphagia with PEG tube Continue statin, Plavix/Lovenox (8) BPH with obstruction/lower urinary tract symptoms: Plan: Hagan in place Continue tamsulosin. (9) Type 2 diabetes mellitus: Plan: A1c of 6.9 on 09/26. Glycemic pharmacy consult Long-acting insulin sliding scale insulin. (10) HTN (hypertension): Plan: Continue metoprolol Resume lisinopril as able when BP more stable Monitor BP Plan CODE STATUS Full code DVT Px: Lovenox SQ Disposition To be determined Admission and Anticipated Discharge Date Admission Date: March 02, 2023 Subjective Patient is seen and examined at bedside Minimally verbal CT abdomen suggestive acute splenic infarct Discussed with surgery today Also updated patient's family at bedside Review of Systems Review of Systems: Other Physical Exam Physical Exam: Physical Exam: Vitals signs as noted above General Appearance: Thin, frail, chronically appearing, no apparent distress Head: normocephalic, Atraumatic Eyes: normal inspection, EOMI Neck: supple, Trachea midline Respiratory/Chest:Decreased breath sounds, Basal crackles, No accessory muscle use Cardiovascular: S1, S2, + murmur Abdomen/GI:Soft, Non tender, Bowel sounds present, +PEG tube, +Large Sacral wound Extremities/Musculoskeletal:normal inspection, no edema, + muscle atrophy, flexure deformities of extremities Neurologic/Psych:AAO, bilateral upper extremity, right lower extremity limited range of movement, Skin: normal color, warm Results & Data Results & Data Vital Signs (Past 12 Hours) Vital Signs Temp Pulse Pulse Resp BP BP Pulse Ox 03/17/23 15:21 36.4 C L 79 18 104/49 L 94 03/17/23 12:40 37.2 C 75 17 133/76 90 03/17/23 09:09 78 03/17/23 09:09 03/17/23 08:00 36.6 C 76 15 111/53 L 97 03/17/23 04:27 36.4 C L 71 20 133/74 95 O2 Del Method 03/17/23 15:21 Room Air 03/17/23 12:40 Room Air 03/17/23 09:09 03/17/23 09:09 Room Air 03/17/23 08:00 Room Air 03/17/23 04:27 Room Air Laboratory Results [facility] 03/17/23 08:53 Sodium 140 Potassium 4.2 Chloride 108 H Carbon Dioxide 26 BUN 37 H Creatinine 0.43 L Glucose 144 H Calcium 8.6
[2023-03-17] MEDS ORDERED: POLYETHYLENE (MIRALAX) 17 GM PACK PO PRN (16:12)
[2023-03-17] MEDS: PEPTAMEN INTENSE VHP 1.0 CAL 1,000 ML BAG PEG SCH (21:15)
[2023-03-17] MEDS: TAMSULOSIN HCL 0.4 MG CAP PO SCH (22:15)
[2023-03-18] MEDS: CIPROFLOXACIN HCL 0.3% OP SOLN 2.5 ML BTL OP SCH ×3 (01:13→07:52)
[2023-03-18] MEDS: PIPERACILLIN/TAZOBACTAM 4.5 GM in DEXTROSE 5% MINI-B 100 ML IV SCH ×3 (01:21→17:52)
[2023-03-18] MEDS: TUBE FEEDING WATER FLUSH PEG SCH ×4 (01:22→17:56)
[2023-03-18] MEDS: ENOXAPARIN INJ 60 MG/0.6 ML SYR SQ SCH ×2 (05:20→17:51)
[2023-03-18] MEDS: MAGNESIUM OXIDE 400 MG TAB PEG SCH ×2 (07:50→21:25)
[2023-03-18] MEDS: METOPROLOL TARTRATE 25 MG TAB PEG SCH ×2 (07:50→21:24)
[2023-03-18] MEDS: AMIODARONE 200 MG TAB PEG SCH ×2 (07:51→17:49)
[2023-03-18] MEDS: TAMSULOSIN HCL 0.4 MG CAP PEG SCH (07:51)
[2023-03-18] MEDS: ADVANCED PROBIOTIC 1250 MG CAPSULE PO SCH (07:51)
[2023-03-18] MEDS: CLOPIDOGREL BISULFATE 75 MG TAB PEG SCH (07:52)
--- NOTE | 2023-03-18 07:52 | Pharmacy Report ---
Pharmacy Glycemic Sign Off Nt - Date of Service March 18, 2023 - Assessment & Plan ASSESSMENT: * Pharmacy was consulted by Dr Eastman on 03/06/23 for glycemic control and to write orders per [facility] inpatient glycemic control protocol. * Major changes made by pharmacy to antidiabetic regimen include: * titration of SC basal/bolus * Patient has been receiving/requiring ~100 units of insulin per day for adequate glycemic control * BSGs ranging 113 - 179 mg/dl * Regimen has required no changes over the past 48hrs to achieve this level of control * Do not anticipate further changes in patient status that would quickly deteriorate glycemic control (i.e. patient to be NPO for upcoming procedure, steroids tapering, starting tube feedings, etc). PLAN FOR INPATIENT GLYCEMIC CONTROL: No changes needed to current regimen. * Continue basal insulin with Lantus 24 units SQ BID * Continue NovoLog per scale ACHS/Q6hrs while NPO * Goal range = 110-140 mg/dl * CF = 20 mg/dl/unit * CR = 1 unit for ever 5 g CHO consumed * Pharmacy is signing off of glycemic consult and will no longer be making adjustments to inpatient regimen. Please feel free to re-consult if needed. Thank you.
[2023-03-18] MEDS: MULTI VIT W/MINERALS LIQUID 15 ML UDP PEG SCH (07:53)
[2023-03-18] MEDS: FERROUS SULFATE 325 MG/7.4 ML UDP PO SCH (07:53)
[2023-03-18 09:04] LABS: Hematocrit (blood only) 29.7 % (42.0-52.0); Mean Corpuscular Hemoglobin 22.3 pg (25.0-34.0); Mean Corpuscular Hgb Conc 30.3 g/dL (32.0-36.0); Mean Corpuscular Volume 73.7 fL (80.0-100.0); Mean Platelet Volume 10.5 fL (9.4-12.4); Platelet Count 394 K/uL (130-400); RDW Coefficient of Variation 19.6 % (11.5-14.5); RDW Standard Deviation 51.7 fL (36.4-46.3); Red Blood Count 4.03 M/uL (4.70-6.10); White Blood Count 9.33 K/ul (4.8-10.8)
[2023-03-18 09:35] LABS: Calcium 8.5 mg/dl (8.6-10.3); Creatinine Clr Calc Pharmacy 162.7 ml/min; Est GFR (African American) 137.4 ml/min; Est GFR (Non-African American) 118.5 ml/min; Magnesium 1.9 mg/dl (1.7-2.4); Potassium 3.8 mmol/L (3.5-5.1)
[2023-03-18] MEDS: INSULIN ASPART PER UNIT CHARGE SC SCH ×4 (10:00→21:59)
[2023-03-18] MEDS: LANTUS PER UNIT CHARGE SC SCH ×2 (10:01→22:04)
[2023-03-18] MEDS: CHOLESTYRAMINE LIGHT 4 GM PKT PO SCH ×2 (10:02→21:26)
[2023-03-18] MEDS: ACETAMINOPHEN SUSP 325 MG/10.15 ML UDC PO PRN (10:50)
--- NOTE | 2023-03-18 10:54 | Surgery Consultation ---
Date of Consultation March 18, 2023 Assessment & Plan (1) Sacral decubitus ulcer: Patient is a 62 yo male with significant PMH that is a known patient to [place] [facility]. Patient is a poor surgical candidate and has had bed side debridement of sacral ulcer in the past. General Surgery was consulted this Admission to evaluate Chronic sacral ulcer. Patient currently has been using a wound vac. Patient was seen at bedside with Dr Landeros. No recommendations for wound debridement for this admission. Continue current care with wound vac General surgery will sign off at this time, please call with questions or concerns Supervising Physician Co-Signing Physician Notes I personally saw and evaluated the patient with Alexsandra GUTIERRES and agree with the assessment and plan. 62-year-old male with a chronic sacral decubitus ulcer The wound was evaluated and is very healthy and does not require debridement We will continue the wound VAC and offloading is much as possible Surgery will sign off at this time, please call with any questions or concerns History of Present Illness Reason for Consultation: Sacral Ulcer Requesting Physician: Attending Physician: Matthew Leigh MD History of Present Illness Patient is a 62 yo male with significant PMH that is a known patient to [facility]. Patient is a poor surgical candidate and has had bed side debridement of sacral ulcer in the past. General Surgery was consulted this Admission to evaluate Chronic sacral ulcer. Patient currently has been using a wound vac. Allergies Allergy/AdvReac Type Severity Reaction Status Date / Time sulfamethoxazole AdvReac Intermediate Verified 03/02/23 04:17 [From Bactrim] trimethoprim [From Bactrim] AdvReac Intermediate Verified 03/02/23 04:17 Home Medications Medication Instructions Recorded Confirmed Type nitroglycerin 0.4 mg sublingual 0.4 mg sublingual DIRECTED PRN 08/09/19 03/02/23 History tablet Chest Pain tamsulosin 0.4 mg capsule 0.4 mg PO HS 01/11/21 03/02/23 History atorvastatin 80 mg tablet 80 mg feeding tube QPM 05/17/21 03/02/23 History clopidogrel 75 mg tablet (Plavix) 75 mg feeding tube QAM 11/17/22 03/02/23 History enoxaparin 120 mg/0.8 mL 70 mg subcut Q12 11/17/22 03/02/23 History subcutaneous syringe ferrous sulfate 325 mg (65 mg 325 mg PO QAM 11/17/22 03/02/23 History iron) tablet,delayed release lisinopril 5 mg tablet 5 mg feeding tube DAILY 11/17/22 03/02/23 History Tube Feeding Water Flush 100 ml PEG Q6H 30 days 02/24/23 03/02/23 Rx acetaminophen 325 mg/10.15 mL oral 650 mg (20.3 mL) PEG Q6H PRN fever 02/24/23 03/02/23 Rx suspension or pain 30 days #300 mL amiodarone 200 mg tablet 200 mg PEG BIDM 30 days #60 tabs 02/24/23 03/02/23 Rx cholestyramine-aspartame 4 gram 4 g PO BID@1000,2200 30 days #60 ea 02/24/23 03/02/23 Rx oral powder for susp in a packet (Prevalite) insulin aspart U-100 100 unit/mL 1 unit (0.01 mL) SC BID@1130,1630 02/24/23 03/02/23 Rx subcutaneous solution (Novolog 30 days #100 mL U-100 Insulin aspart) insulin aspart U-100 100 unit/mL 1 unit (0.01 mL) SC DAILY@0730 30 02/24/23 03/02/23 Rx subcutaneous solution (Novolog days #100 mL U-100 Insulin aspart) insulin aspart U-100 100 unit/mL 1 unit (0.01 mL) SC DAILY@2000 30 02/24/23 03/02/23 Rx subcutaneous solution (Novolog days #100 mL U-100 Insulin aspart) magnesium oxide 400 mg (241.3 mg 400 mg PEG BID 30 days #60 tabs 02/24/23 03/02/23 Rx magnesium) tablet metronidazole 500 mg tablet 500 mg feeding tube Q8 9 days #27 02/24/23 03/02/23 Rx tabs miconazole nitrate 2 % topical 1 applic EXT PRN PRN fungal rash 02/24/23 03/02/23 Rx powder (Desenex) 30 days #85 grams multivit and minerals-ferrous 15 ml PEG QAM 30 days #450 mL 02/24/23 03/02/23 Rx gluconate 9 mg iron/15 mL oral liquid (Centrum) nystatin 100,000 unit/gram topical 1 applic EXT BID 14 days #15 grams 02/24/23 03/02/23 Rx cream sulfamethoxazole 200 20 ml feeding tube Q12 9 days #360 02/24/23 03/02/23 Rx mg-trimethoprim 40 mg/5 mL oral mL suspension tamsulosin 0.4 mg capsule 0.4 mg PEG QAM #30 caps 02/24/23 03/02/23 Rx insulin glargine 100 unit/mL 16 unit SC BID@0830,2000 03/02/23 03/02/23 History subcutaneous solution (Lantus U-100 Insulin) Patient History Medical History Altered mental status Aortic valve stenosis BPH with obstruction/lower urinary tract symptoms CAD (coronary artery disease) 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 in the setting of diabetes for which patient initially underwent off pump 3 vessel coronary artery bypass grafting in 2006 with DUARTE to LAD, SVG to circumflex and SVG to PDA Bare metal stent to protected left main coronary artery 08/13/2015 PCI drug-eluting stent to the saphenous vein graft to RPDA 04/17/2014 PCI, drug-eluting stent to the ostial portion of the SVG to RCA 12/04/2014 for severe in stent restenosis Carotid stenosis Diabetic peripheral neuropathy associated with type 2 diabetes mellitus Discussion about advance care planning held with family member Dyslipidemia H/O deep venous thrombosis Hemiplegia affecting right dominant side History of CVA (cerebrovascular accident) History of pancreatitis HTN (hypertension) Hypomagnesemia Monoplegia affecting right dominant side Obesity Osteomyelitis of great toe of right foot Palliative care by specialist Persistent wound pain Preoperative cardiovascular examination Proliferative diabetic retinopathy Retinal edema Right foot drop Status post administration of all doses of COVID-19 vaccine series Status post cerebrovascular accident Status post myocardial infarction Superior mesenteric artery stenosis Type 2 diabetes mellitus Weakness generalized Surgical History Hx of vitrectomy S/P angioplasty with stent S/P CABG x 3 S/P debridement (09/16/22) Debridement of Sacral Wound with Wound Vac Placement(Not Applicable) - Ruth Ann Vaz DO S/P percutaneous endoscopic gastrostomy (PEG) tube placement S/P PTCA (percutaneous transluminal coronary angioplasty) Family History Father Heart disease Social History Smoking Status: Unknown if ever smoked Tobacco Type: Cigarettes Second Hand Exposure: No; Do You Dip or Chew Tobacco: No; Hx Alcohol Use: No Hx Substance Use: No Preferred Language: Ivorian Communication Ability: Impaired Communication Ability Comment: Intermittent Confusion and history of CVA. Visual Impairment: No Limitations Hearing Ability: Normal Grit Blaster Required: No Beliefs That Will Affect Care: Spiritual marital status: Current Living Situation: Half-Way current occupational status: disabled Other Information That Helps Us Care for You: No Feels Safe at Home: Yes Safety Concerns: Feels Safe At This Time Assistive Devices: Glasses Review of Systems Integumentary: sacral ulcer Physical Exam Constitutional: + ill appearing and cooperative; no acute distress Skin: + ulcer Patient has chronic sacral ulcer, wound care nurse has uploaded pictures to chart Results & Data Vital Signs (Past 12 Hours) Vital Signs Temp Pulse Pulse Resp BP BP Pulse Ox 03/18/23 08:27 97.7 F 79 16 167/84 H 97 03/18/23 08:20 74 03/18/23 08:20 03/18/23 04:15 99.1 F 84 20 127/63 95 03/17/23 23:13 98.4 F 83 18 119/64 96 O2 Del Method 03/18/23 08:27 Room Air 03/18/23 08:20 03/18/23 08:20 Room Air 03/18/23 04:15 Room Air 03/17/23 23:13 Room Air PG Care Time/CCT Total # of Minutes Spent Total Time Spent with Patient: Total time spent is greater than 50% in coordination of care (as documented) at patient's floor/unit and/or counseling patient: Coding Level of Care Code 23659 INT INP/OBS CARE 3/75MIN Diagnoses Sacral decubitus ulcer L89.159
[2023-03-18] MEDS: DAPTOmycin 275 MG in SYRINGE 0 ML IV SCH (14:20)
--- NOTE | 2023-03-18 19:10 | Hospitalist Progress Note ---
Date of Service March 18, 2023 Assessment & Plan (1) Fever: (2) Infected decubitus ulcer: Plan: Patient was stable for discharge awaiting placement and then developed for which work up was done which shows infected sacral ulcer again. Fever likely due to Sacral wound Infection. Wound clx growing S aureus as of now. Per surgery, no plans for debridement. Per [facility]OC[facility], off of wound vac for the weekend to allow peripheral healing. Continue dapto pending final clx results. Might need ID reevaluation once clx results available. Blood clx negative. Fever free since 03/16. (3) Splenic infarction: Plan: Acute splenic infarct Chronic renal infarcts --CT ABD:Chronic sacral decubitus ulcer with chronic sacrococcygeal osteomyelitis again noted. There is cellulitis without abscess. There is an acute splenic infarct measuring up to 6 mm with chronic renal infarcts and cortical scarring again noted. No bowel obstruction. Gastrostomy tube in place. --Continue therapeutic Lovenox -- Discussed with surgery on 03/17/2023: No further intervention needed for acute splenic infarct (4) Acute hyponatremia: Plan: Hyponatremia- resolved. (5) Hematuria: Plan: Trent hematuria noted in the facility Likely secondary to trauma due to Hagan catheter CT scan of the chest and pelvis did show nonspecific thickening of the bladder wall Urine culture negative Hematuria resolved Lovenox resumed without recurrence of hematuria Monitor CBC (6) Aortic stenosis: Plan: H/O severe aortic stenosis Maintain euvolemic status. Lasix as needed (7) Paroxysmal atrial fibrillation: Plan: As per prior provider On the night of December 07 ; patient converted to atrial fibrillation with rapid ventricular response. He was startedamiodarone drip as per cardiology recommendation Converted back to sinus rhythm on December 08 after 5 hours. Repeat echocardiogram was done; found to have moderately reduced EF of 35 to 40% with severe Rate remains controlled without any cardiac symptoms -- Continue amiodarone, metoprolol On therapeutic dose of Lovenox SQ for anticoagulation (8) Peripheral arterial disease: (9) History of CVA (cerebrovascular accident): Plan: History of recurrent CVA despite DAPT and anticoagulation therapy Chronic right hemiplegia/left arm paralysis/mostly nonverbal/expressive aphasia/dysphagia with PEG tube Continue statin, Plavix/Lovenox (10) BPH with obstruction/lower urinary tract symptoms: Plan: Hagan in place Continue tamsulosin. (11) Type 2 diabetes mellitus: Plan: A1c of 6.9 on 09/26. Glycemic pharmacy consult Long-acting insulin sliding scale insulin. (12) HTN (hypertension): Plan: Continue metoprolol Resume lisinopril as able when BP more stable Monitor BP Plan Hypomagnesia-resolved. On oral magnesium supplementation Right heel wound- Wound culture showed Corynebacterium species Completed antibiotics on 03/06/2023 as per the ID recommendation. Continue wound care DVT prophylaxis: Therapeutic anticoagulation with Lovenox Disposition-pending final culture results and ID evaluation Updated at bedside Admission and Anticipated Discharge Date Admission Date: March 02, 2023 Subjective Patient was seen and examined at bedside in presence of his . No new issues. No fever noted since 03/16. No vomiting, respiratory distress. Review of Systems Review of Systems: Unobtainable due to cognitive status Physical Exam Physical Exam: General: Thin, frail, chronically ill-appearing, not in acute distress, on room air HEENT: RODOLFO, MMM Chest: Decreased breath sounds bilaterally CVS: Regular rate and rhythm, normal heart sounds, + murmur Abdomen: Soft, non tender, not distended, normal bowel sounds. PEG tube present. Back: Large sacral wound. Neuro: Awake, alert MSK: Muscle atrophy, flexion deformities of extremities Extremities: No edema Results & Data Results & Data Vital Signs (Past 12 Hours) Vital Signs Temp Pulse Pulse Resp BP Pulse Ox O2 Del Method 03/18/23 16:07 36.7 C 82 16 155/73 H 96 Room Air 03/18/23 14:54 70 03/18/23 11:50 37.1 C 70 16 149/83 H 94 Room Air 03/18/23 08:27 36.5 C 79 16 167/84 H 97 Room Air 03/18/23 08:20 74 03/18/23 08:20 Room Air Laboratory Results Short CBC 03/18/23 Range/Units 08:37 WBC 9.33 (4.8-10.8) K/ul Hgb 9.0 L (14.0-18.0) g/dl Hct 29.7 L (42.0-52.0) % Plt Count 394 (130-400) K/uL BMP 03/18/23 08:37 Sodium 140 Potassium 3.8 Chloride 109 H Carbon Dioxide 26 BUN 40 H Creatinine 0.46 L Glucose 157 H Calcium 8.5 L Medications Administered Current Inpatient Medications Acetaminophen (Acetaminophen Susp 325 Mg/10.15 Ml Udc) 650 mg PO Q6H PRN PRN Reason: pain/fever Stop: 04/01/23 03:59 Last Admin: 03/18/23 10:50 Dose: 650 mg Amiodarone HCl (Amiodarone 200 Mg Tab) 200 mg PEG BIDM [facility] Stop: 04/01/23 07:59 Last Admin: 03/18/23 17:49 Dose: 200 mg Artificial Tears (Artificial Tears) 1 drops OPB QID PRN PRN Reason: Dryness Stop: 04/08/23 12:17 Atorvastatin Calcium (Atorvastatin 40 Mg Tab) 80 mg PEG QPM [facility] Stop: 04/08/23 20:59 Last Admin: 03/11/23 20:18 Dose: 80 mg Cholestyramine Resin (Cholestyramine Light 4 Gm Pkt) 4 gm PO BID@1000,2200 [facility] Stop: 04/01/23 09:59 Last Admin: 03/18/23 10:02 Dose: 4 gm Clopidogrel Bisulfate (Clopidogrel Bisulfate 75 Mg Tab) 75 mg PEG QAM [facility] Stop: 04/09/23 08:59 Last Admin: 03/18/23 07:52 Dose: 75 mg Dextrose (Dextrose 50% 50 Ml Syringe) 25 - 50 ml IV UD PRN; Protocol PRN Reason: Hypoglycemia Protocol Stop: 04/01/23 05:48 Enoxaparin Sodium (Enoxaparin Inj 60 Mg/0.6 Ml Syr) 60 mg SQ Q12H [facility] Stop: 04/02/23 16:14 Last Admin: 03/18/23 17:51 Dose: 60 mg Ferrous Sulfate (Ferrous Sulfate 325 Mg/7.4 Ml Udp) 325 mg PO QAM [facility] Stop: 04/04/23 10:59 Last Admin: 03/18/23 07:53 Dose: 325 mg Glucagon (Glucagon For Inj 1 Mg Vial) 1 mg SQ UD PRN; Protocol PRN Reason: Hypoglycemia Protocol Stop: 04/01/23 05:48 Glucose (Glucose 10 Tab/Tube) 4 - 8 tab PO UD PRN; Protocol PRN Reason: Hypoglycemia Treatment Stop: 04/01/23 05:48 Glucose (Glucose 40% Gel 15 Gm Tube) 15 - 30 gm PO UD PRN; Protocol PRN Reason: Hypoglycemia Protocol Stop: 04/01/23 05:48 Promethazine HCl (Phenergan) 6.25 mg in 50.25 mls @ 201 mls/hr IV Q6H PRN PRN Reason: Nausea And Vomiting Stop: 04/01/23 03:59 Daptomycin 275 mg/ Syringe 5.5 mls @ 2.75 mls/min IV Q24H [facility]; Protocol Stop: 03/19/23 13:29 Last Admin: 03/18/23 14:20 Dose: 2.75 mls/min Piperacillin Sod/Tazobactam (Sod 4.5 gm/ Dextrose) 100 mls @ 25 mls/hr IV Q8H [facility]; Protocol Stop: 03/19/23 16:59 Last Admin: 03/18/23 17:52 Dose: 25 mls/hr Insulin Aspart (Insulin Aspart Per Unit Charge) 0 units SC ACHS [facility] Stop: 04/17/23 07:29 Last Admin: 03/18/23 18:07 Dose: 17 units Insulin Glargine (Lantus Per Unit Charge) 24 units SC BID [facility] Stop: 04/17/23 08:59 Last Admin: 03/18/23 10:01 Dose: 24 units Lactobacillus Acidophilus (Advanced Probiotic 1250 Mg Capsule) 2 cap PO DAILY [facility] Stop: 04/12/23 08:59 Last Admin: 03/18/23 07:51 Dose: 2 cap Magnesium Oxide (Magnesium Oxide 400 Mg Tab) 400 mg PEG BID [facility] Stop: 04/01/23 08:59 Last Admin: 03/18/23 07:50 Dose: 400 mg Metoprolol Tartrate (Metoprolol Tartrate 25 Mg Tab) 25 mg PEG BID [facility] Stop: 04/08/23 20:59 Last Admin: 03/18/23 07:50 Dose: 25 mg Miconazole Nitrate (Miconazole Nitrate Powder 85 Gm) 1 appln EXT PRN PRN PRN Reason: fungal rash Stop: 04/01/23 06:26 Miscellaneous (Carbohydrates For Hypoglycemia ) 15 - 30 gm PO UD PRN PRN Reason: Hypoglycemia Protocol Stop: 04/01/23 05:48 Multivitamins/Minerals (Multi Vit W/Minerals Liquid 15 Ml Udp) 15 ml PEG QAM [facility] Stop: 04/01/23 08:59 Last Admin: 03/18/23 07:53 Dose: 15 ml Nitroglycerin (Nitroglycerin Sl 0.4 Mg/Tab Tab) 0.4 mg SL UD PRN PRN Reason: Chest Pain Stop: 04/01/23 06:26 Nutritional Formula (Peptamen Intense Vhp 1.0 Checo 1,000 Ml Bag) 1,000 ml PEG TODAY@2000 [facility]; Protocol Stop: 04/01/23 19:59 Last Admin: 03/17/23 21:15 Dose: 1,000 ml Polyethylene Glycol (Polyethylene (Miralax) 17 Gm Pack) 17 gm PO DAILY PRN PRN Reason: Constipation Stop: 04/16/23 16:11 Sterile Water (Tube Feeding Water Flush) 150 ml PEG Q6H [facility] Stop: 04/03/23 18:59 Last Admin: 03/18/23 17:56 Dose: 150 ml Tamsulosin HCl (Tamsulosin Hcl 0.4 Mg Cap) 0.4 mg PO HS [facility] Stop: 04/01/23 20:59 Last Admin: 03/17/23 22:15 Dose: 0.4 mg Tamsulosin HCl (Tamsulosin Hcl 0.4 Mg Cap) 0.4 mg PEG QAM [facility] Stop: 04/01/23 08:59 Last Admin: 03/18/23 07:51 Dose: 0.4 mg
[2023-03-18] MEDS: TAMSULOSIN HCL 0.4 MG CAP PO SCH (21:23)
[2023-03-18] MEDS: PEPTAMEN INTENSE VHP 1.0 CAL 1,000 ML BAG PEG SCH (22:00)
[2023-03-19] MEDS: PIPERACILLIN/TAZOBACTAM 4.5 GM in DEXTROSE 5% MINI-B 100 ML IV SCH ×2 (01:14→09:39)
[2023-03-19] MEDS: TUBE FEEDING WATER FLUSH PEG SCH ×4 (01:14→18:07)
[2023-03-19] MEDS: ENOXAPARIN INJ 60 MG/0.6 ML SYR SQ SCH ×2 (05:43→18:07)
[2023-03-19 07:29] LABS: BUN Creatinine Ratio 102.4 (10-20); Calcium 8.7 mg/dl (8.6-10.3); Creatinine Clr Calc Pharmacy 192.8 ml/min; Est GFR (Non-African American) 124.3 ml/min; Potassium 3.9 mmol/L (3.5-5.1)
[2023-03-19 07:36] LABS: Hematocrit (blood only) 30.8 % (42.0-52.0); Hemoglobin 9.2 g/dl (14.0-18.0); Mean Corpuscular Hemoglobin 22.4 pg (25.0-34.0); Mean Corpuscular Hgb Conc 29.9 g/dL (32.0-36.0); Mean Corpuscular Volume 74.9 fL (80.0-100.0); Mean Platelet Volume 9.9 fL (9.4-12.4); Platelet Count 402 K/uL (130-400); RDW Coefficient of Variation 19.7 % (11.5-14.5); Red Blood Count 4.11 M/uL (4.70-6.10); White Blood Count 8.06 K/ul (4.8-10.8)
[2023-03-19] MEDS: METOPROLOL TARTRATE 25 MG TAB PEG SCH ×2 (08:18→22:00)
[2023-03-19] MEDS: ADVANCED PROBIOTIC 1250 MG CAPSULE PO SCH (08:18)
[2023-03-19] MEDS: FERROUS SULFATE 325 MG/7.4 ML UDP PO SCH (08:18)
[2023-03-19] MEDS: TAMSULOSIN HCL 0.4 MG CAP PEG SCH (08:18)
[2023-03-19] MEDS: AMIODARONE 200 MG TAB PEG SCH ×2 (08:18→18:06)
[2023-03-19] MEDS: MULTI VIT W/MINERALS LIQUID 15 ML UDP PEG SCH (08:18)
[2023-03-19] MEDS: MAGNESIUM OXIDE 400 MG TAB PEG SCH ×2 (08:19→22:00)
[2023-03-19] MEDS: CLOPIDOGREL BISULFATE 75 MG TAB PEG SCH (08:19)
[2023-03-19] MEDS: LANTUS PER UNIT CHARGE SC SCH ×2 (09:38→22:32)
[2023-03-19] MEDS: INSULIN ASPART PER UNIT CHARGE SC SCH ×4 (09:38→22:23)
[2023-03-19] MEDS: CHOLESTYRAMINE LIGHT 4 GM PKT PO SCH ×2 (09:40→21:59)
--- NOTE | 2023-03-19 13:17 | Hospitalist Progress Note ---
Date of Service March 19, 2023 Assessment & Plan (1) Fever: Plan: Due to infected decubitus ulcer. Fever resolved (2) Infected decubitus ulcer: Plan: Patient was stable for discharge awaiting placement and then developed for which work up was done which shows infected sacral ulcer again. Fever likely due to Sacral wound Infection. Wound clx growing MRSA sensitive to vancomycin and daptomycin. Per surgery, no plans for debridement. Per WOCN, off of wound vac for the weekend to allow peripheral healing. We will continue daptomycin and have ID evaluation for final antibiotic recommendations. Blood clx negative. Fever free since 03/16. (3) Splenic infarction: Plan: Acute splenic infarct Chronic renal infarcts --CT ABD:Chronic sacral decubitus ulcer with chronic sacrococcygeal osteomyelitis again noted. There is cellulitis without abscess. There is an acute splenic infarct measuring up to 6 mm with chronic renal infarcts and cortical scarring again noted. No bowel obstruction. Gastrostomy tube in place. --Continue therapeutic Lovenox -- Discussed with surgery on 03/17/2023: No further intervention needed for acu te splenic infarct (4) Acute hyponatremia: Plan: Hyponatremia- resolved. (5) Hematuria: Plan: Trent hematuria noted in the facility Likely secondary to trauma due to Hagan catheter CT scan of the chest and pelvis did show nonspecific thickening of the bladder wall Urine culture negative Hematuria resolved Lovenox resumed without recurrence of hematuria CBC remains stable (6) Aortic stenosis: Plan: H/O severe aortic stenosis Maintain euvolemic status. Lasix as needed (7) Paroxysmal atrial fibrillation: Plan: As per prior provider On the night of December 07 ; patient converted to atrial fibrillation with rapid ventricular response. He was startedamiodarone drip as per cardiology recommendation Converted back to sinus rhythm on December 08 after 5 hours. Repeat echocardiogram was done; found to have moderately reduced EF of 35 to 40% with severe Rate remains controlled without any cardiac symptoms -- Continue amiodarone, metoprolol On therapeutic dose of Lovenox SQ for anticoagulation (8) Peripheral arterial disease: (9) History of CVA (cerebrovascular accident): Plan: History of recurrent CVA despite DAPT and anticoagulation therapy Chronic right hemiplegia/left arm paralysis/mostly nonverbal/expressive aphasia/dysphagia with PEG tube Continue statin, Plavix/Lovenox (10) BPH with obstruction/lower urinary tract symptoms: Plan: Hagan in place Continue tamsulosin. (11) Type 2 diabetes mellitus: Plan: A1c of 6.9 on 09/26. Continue Lantus, sliding scale insulin. Adjust as indicated (12) HTN (hypertension): Plan: Continue metoprolol. Will resume lisinopril as BP rebounded Plan Hypomagnesia-resolved. On oral magnesium supplementation Right heel wound- Wound culture showed Corynebacterium species Completed antibiotics on 03/06/2023 as per the ID recommendation. Continue wound care DVT prophylaxis: Therapeutic anticoagulation with Lovenox Disposition-pending ID evaluation Updated at bedside Admission and Anticipated Discharge Date Admission Date: March 02, 2023 Subjective Patient was seen and examined at bedside in presence of his . He remains stable without any new complaints or issues. Fever has resolved. Denies any pain. No chest pain, shortness of breath, nausea or vomiting. Per , patient has been eating well. Review of Systems Review of Systems: All systems reviewed & are unremarkable except as noted in Subjective Physical Exam Physical Exam: General: Thin, frail, chronically ill-appearing, not in acute distress, on room air HEENT: RODOLFO, MMM Chest: Fair breath sounds bilaterally CVS: Regular rate and rhythm, normal heart sounds, + murmur Abdomen: Soft, non tender, not distended, normal bowel sounds. PEG tube present-site clean and noninfected Back: Large sacral wound. Neuro: Awake, alert MSK: Muscle atrophy, flexion deformities of extremities Extremities: No edema Results & Data Results & Data Vital Signs (Past 12 Hours) Vital Signs Temp Pulse Pulse Resp BP Pulse Ox O2 Del Method 03/19/23 11:59 37.1 C 69 16 145/73 H 97 Room Air 03/19/23 11:01 Room Air 03/19/23 09:11 36.6 C 83 16 153/87 H 95 Room Air 03/19/23 07:34 76 03/19/23 04:35 37.1 C 76 20 137/74 93 Room Air 03/19/23 04:07 Room Air Laboratory Results Short CBC 03/19/23 Range/Units 06:39 WBC 8.06 (4.8-10.8) K/ul Hgb 9.2 L (14.0-18.0) g/dl Hct 30.8 L (42.0-52.0) % Plt Count 402 H (130-400) K/uL BMP 03/19/23 06:39 Sodium 142 Potassium 3.9 Chloride 111 H Carbon Dioxide 26 BUN 42 H Creatinine 0.41 L Glucose 141 H Calcium 8.7 Medications Administered Current Inpatient Medications Acetaminophen (Acetaminophen Susp 325 Mg/10.15 Ml Udc) 650 mg PO Q6H PRN PRN Reason: pain/fever Stop: 04/01/23 03:59 Last Admin: 03/18/23 10:50 Dose: 650 mg Amiodarone HCl (Amiodarone 200 Mg Tab) 200 mg PEG BIDM SUMA Stop: 04/01/23 07:59 Last Admin: 03/19/23 08:18 Dose: 200 mg Artificial Tears (Artificial Tears) 1 drops OPB QID PRN PRN Reason: Dryness Stop: 04/08/23 12:17 Atorvastatin Calcium (Atorvastatin 40 Mg Tab) 80 mg PEG QPM SUMA Stop: 04/08/23 20:59 Last Admin: 03/11/23 20:18 Dose: 80 mg Cholestyramine Resin (Cholestyramine Light 4 Gm Pkt) 4 gm PO BID@1000,2200 [facility] Stop: 04/01/23 09:59 Last Admin: 03/19/23 09:40 Dose: 4 gm Clopidogrel Bisulfate (Clopidogrel Bisulfate 75 Mg Tab) 75 mg PEG QAM SUMA Stop: 04/09/23 08:59 Last Admin: 03/19/23 08:19 Dose: 75 mg Dextrose (Dextrose 50% 50 Ml Syringe) 25 - 50 ml IV UD PRN; Protocol PRN Reason: Hypoglycemia Protocol Stop: 04/01/23 05:48 Enoxaparin Sodium (Enoxaparin Inj 60 Mg/0.6 Ml Syr) 60 mg SQ Q12H SUMA Stop: 04/02/23 16:14 Last Admin: 03/19/23 05:43 Dose: 60 mg Ferrous Sulfate (Ferrous Sulfate 325 Mg/7.4 Ml Udp) 325 mg PO QAM SUMA Stop: 04/04/23 10:59 Last Admin: 03/19/23 08:18 Dose: 325 mg Glucagon (Glucagon For Inj 1 Mg Vial) 1 mg SQ UD PRN; Protocol PRN Reason: Hypoglycemia Protocol Stop: 04/01/23 05:48 Glucose (Glucose 10 Tab/Tube) 4 - 8 tab PO UD PRN; Protocol PRN Reason: Hypoglycemia Treatment Stop: 04/01/23 05:48 Glucose (Glucose 40% Gel 15 Gm Tube) 15 - 30 gm PO UD PRN; Protocol PRN Reason: Hypoglycemia Protocol Stop: 04/01/23 05:48 Promethazine HCl (Phenergan) 6.25 mg in 50.25 mls @ 201 mls/hr IV Q6H PRN PRN Reason: Nausea And Vomiting Stop: 04/01/23 03:59 Daptomycin 275 mg/ Syringe 5.5 mls @ 2.75 mls/min IV Q24H [facility]; Protocol Stop: 03/19/23 13:29 Last Admin: 03/18/23 14:20 Dose: 2.75 mls/min Piperacillin Sod/Tazobactam (Sod 4.5 gm/ Dextrose) 100 mls @ 25 mls/hr IV Q8H [facility]; Protocol Stop: 03/19/23 16:59 Last Admin: 03/19/23 09:39 Dose: 25 mls/hr Insulin Aspart (Insulin Aspart Per Unit Charge) 0 units SC ACHS [facility] Stop: 04/17/23 07:29 Last Admin: 03/19/23 09:38 Dose: 13 units Insulin Glargine (Lantus Per Unit Charge) 24 units SC BID [facility] Stop: 04/17/23 08:59 Last Admin: 03/19/23 09:38 Dose: 24 units Lactobacillus Acidophilus (Advanced Probiotic 1250 Mg Capsule) 2 cap PO DAILY [facility] Stop: 04/12/23 08:59 Last Admin: 03/19/23 08:18 Dose: 2 cap Magnesium Oxide (Magnesium Oxide 400 Mg Tab) 400 mg PEG BID [facility] Stop: 04/01/23 08:59 Last Admin: 03/19/23 08:19 Dose: 400 mg Metoprolol Tartrate (Metoprolol Tartrate 25 Mg Tab) 25 mg PEG BID [facility] Stop: 04/08/23 20:59 Last Admin: 03/19/23 08:18 Dose: 25 mg Miconazole Nitrate (Miconazole Nitrate Powder 85 Gm) 1 appln EXT PRN PRN PRN Reason: fungal rash Stop: 04/01/23 06:26 Miscellaneous (Carbohydrates For Hypoglycemia ) 15 - 30 gm PO UD PRN PRN Reason: Hypoglycemia Protocol Stop: 04/01/23 05:48 Multivitamins/Minerals (Multi Vit W/Minerals Liquid 15 Ml Udp) 15 ml PEG QAM SUMA Stop: 04/01/23 08:59 Last Admin: 03/19/23 08:18 Dose: 15 ml Nitroglycerin (Nitroglycerin Sl 0.4 Mg/Tab Tab) 0.4 mg SL UD PRN PRN Reason: Chest Pain Stop: 04/01/23 06:26 Nutritional Formula (Peptamen Intense Vhp 1.0 Checo 1,000 Ml Bag) 1,000 ml PEG TODAY@2000 [facility]; Protocol Stop: 04/01/23 19:59 Last Admin: 03/18/23 22:00 Dose: 1,000 ml Polyethylene Glycol (Polyethylene (Miralax) 17 Gm Pack) 17 gm PO DAILY PRN PRN Reason: Constipation Stop: 04/16/23 16:11 Sterile Water (Tube Feeding Water Flush) 150 ml PEG Q6H [facility] Stop: 04/03/23 18:59 Last Admin: 03/19/23 06:23 Dose: 150 ml Tamsulosin HCl (Tamsulosin Hcl 0.4 Mg Cap) 0.4 mg PO HS [facility] Stop: 04/01/23 20:59 Last Admin: 03/18/23 21:23 Dose: 0.4 mg Tamsulosin HCl (Tamsulosin Hcl 0.4 Mg Cap) 0.4 mg PEG QAM [facility] Stop: 04/01/23 08:59 Last Admin: 03/19/23 08:18 Dose: 0.4 mg
[2023-03-19] MEDS: TAMSULOSIN HCL 0.4 MG CAP PO SCH (22:00)
[2023-03-19] MEDS: PEPTAMEN INTENSE VHP 1.0 CAL 1,000 ML BAG PEG SCH (22:22)
[2023-03-20] MEDS: TUBE FEEDING WATER FLUSH PEG SCH ×4 (01:30→18:08)
[2023-03-20] MEDS: ENOXAPARIN INJ 60 MG/0.6 ML SYR SQ SCH ×2 (05:48→17:06)
[2023-03-20 06:38] LABS: Hematocrit (blood only) 31.7 % (42.0-52.0); Hemoglobin 9.4 g/dl (14.0-18.0); Mean Corpuscular Hemoglobin 22.2 pg (25.0-34.0); Mean Corpuscular Hgb Conc 29.7 g/dL (32.0-36.0); Mean Corpuscular Volume 74.9 fL (80.0-100.0); Mean Platelet Volume 10.2 fL (9.4-12.4); Platelet Count 446 K/uL (130-400); RDW Coefficient of Variation 19.7 % (11.5-14.5); RDW Standard Deviation 52.2 fL (36.4-46.3); Red Blood Count 4.23 M/uL (4.70-6.10); White Blood Count 8.21 K/ul (4.8-10.8)
[2023-03-20] MEDS: MAGNESIUM OXIDE 400 MG TAB PEG SCH ×2 (08:20→20:58)
[2023-03-20] MEDS: CLOPIDOGREL BISULFATE 75 MG TAB PEG SCH (08:20)
[2023-03-20] MEDS: TAMSULOSIN HCL 0.4 MG CAP PEG SCH (08:20)
[2023-03-20] MEDS: METOPROLOL TARTRATE 25 MG TAB PEG SCH ×2 (08:20→21:00)
[2023-03-20] MEDS: ADVANCED PROBIOTIC 1250 MG CAPSULE PO SCH (08:21)
[2023-03-20] MEDS: MULTI VIT W/MINERALS LIQUID 15 ML UDP PEG SCH (08:21)
[2023-03-20] MEDS: FERROUS SULFATE 325 MG/7.4 ML UDP PO SCH (08:21)
[2023-03-20] MEDS: AMIODARONE 200 MG TAB PEG SCH ×2 (08:21→17:05)
[2023-03-20] MEDS: PIPERACILLIN/TAZOBACTAM 4.5 GM in DEXTROSE 5% MINI-B 100 ML IV SCH ×3 (09:34→23:15)
[2023-03-20] MEDS: DAPTOmycin 300 MG in SYRINGE 0 ML IV SCH (09:34)
[2023-03-20] MEDS: LANTUS PER UNIT CHARGE SC SCH ×2 (09:38→20:57)
[2023-03-20] MEDS: INSULIN ASPART PER UNIT CHARGE SC SCH ×4 (09:38→20:58)
[2023-03-20] MEDS: CHOLESTYRAMINE LIGHT 4 GM PKT PO SCH ×2 (09:39→21:05)
--- NOTE | 2023-03-20 12:22 | Hospitalist Progress Note ---
Date of Service March 20, 2023 Assessment & Plan (1) Fever: Plan: Due to infected decubitus ulcer. (2) Infected decubitus ulcer: Plan: Patient was stable for discharge awaiting placement and then developed for which work up was done which shows infected sacral ulcer again. Fever likely due to Sacral wound Infection. Wound clx growing MRSA sensitive to vancomycin and daptomycin. Per surgery, no plans for debridement. Per WOCN, off of wound vac for the weekend to allow peripheral healing. We will continue daptomycin and have ID evaluation for final antibiotic recommendations. Blood clx negative. (3) Splenic infarction: Plan: Acute splenic infarct Chronic renal infarcts --CT ABD:Chronic sacral decubitus ulcer with chronic sacrococcygeal osteomyelitis again noted. There is cellulitis without abscess. There is an acute splenic infarct measuring up to 6 mm with chronic renal infarcts and cortical scarring again noted. No bowel obstruction. Gastrostomy tube in place. --Continue therapeutic Lovenox -- Discussed with surgery on 03/17/2023: No further intervention needed for acute splenic infarct (4) Acute hyponatremia: Plan: Hyponatremia- resolved. (5) Hematuria: Plan: Trent hematuria noted in the facility Likely secondary to trauma due to Hagan catheter CT scan of the chest and pelvis did show nonspecific thickening of the bladder wall Urine culture negative Hematuria resolved Lovenox resumed without recurrence of hematuria CBC remains stable (6) Aortic stenosis: Plan: H/O severe aortic stenosis Maintain euvolemic status. Lasix as needed (7) Paroxysmal atrial fibrillation: Plan: As per prior provider On the night of December 07 ; patient converted to atrial fibrillation with rapid ventricular response. He was startedamiodarone drip as per cardiology recommendation Converted back to sinus rhythm on December 08 after 5 hours. Repeat echocardiogram was done; found to have moderately reduced EF of 35 to 40% with severe Rate remains controlled without any cardiac symptoms -- Continue amiodarone, metoprolol On therapeutic dose of Lovenox SQ for anticoagulation (8) Peripheral arterial disease: (9) History of CVA (cerebrovascular accident): Plan: History of recurrent CVA despite DAPT and anticoagulation therapy Chronic right hemiplegia/left arm paralysis/mostly nonverbal/expressive aphasia/dysphagia with PEG tube Continue statin, Plavix/Lovenox (10) BPH with obstruction/lower urinary tract symptoms: Plan: Hagan in place Continue tamsulosin. (11) Type 2 diabetes mellitus: Plan: A1c of 6.9 on 09/26. Continue Lantus, sliding scale insulin. Adjust as indicated (12) HTN (hypertension): Plan: BP overall stable. Continue metoprolol. Resume lisinopril if BP remains high. Plan Hypomagnesia-resolved. On oral magnesium supplementation Right heel wound- Wound culture showed Corynebacterium species Completed antibiotics on 03/06/2023 as per the ID recommendation. Continue wound care DVT prophylaxis: Therapeutic anticoagulation with Lovenox Disposition-pending ID evaluation Updated at bedside Admission and Anticipated Discharge Date Admission Date: March 02, 2023 Subjective Patient was seen and examined at bedside in presence of his . No new issues. Low-grade temperature overnight noted. No nausea, vomiting, chest pain, shortness of breath. Review of Systems Review of Systems: All systems reviewed & are unremarkable except as noted in Subjective Physical Exam Physical Exam: General: Thin, frail, chronically ill-appearing, not in acute distress, on room air HEENT: RODOLFO, MMM Chest: Fair breath sounds bilaterally CVS: Regular rate and rhythm, normal heart sounds, + murmur Abdomen: Soft, non tender, not distended, normal bowel sounds. PEG tube present-site clean and noninfected Back: Large sacral wound. Neuro: Awake, alert MSK: Muscle atrophy, flexion deformities of extremities Extremities: No edema Results & Data Results & Data Vital Signs (Past 12 Hours) Vital Signs Temp Pulse Pulse Resp BP BP Pulse Ox 03/20/23 12:05 03/20/23 09:00 36.6 C 78 16 166/78 H 91 03/20/23 07:50 91 H 03/20/23 04:08 03/20/23 02:20 37.7 C H 79 18 133/68 97 O2 Del Method 03/20/23 12:05 Room Air 03/20/23 09:00 Room Air 03/20/23 07:50 03/20/23 04:08 Room Air 03/20/23 02:20 Room Air Laboratory Results Short CBC 03/20/23 Range/Units 05:48 WBC 8.21 (4.8-10.8) K/ul Hgb 9.4 L (14.0-18.0) g/dl Hct 31.7 L (42.0-52.0) % Plt Count 446 H (130-400) K/uL Medications Administered Current Inpatient Medications Acetaminophen (Acetaminophen Susp 325 Mg/10.15 Ml Udc) 650 mg PO Q6H PRN PRN Reason: pain/fever Stop: 04/01/23 03:59 Last Admin: 03/18/23 10:50 Dose: 650 mg Amiodarone HCl (Amiodarone 200 Mg Tab) 200 mg PEG BIDM [facility] Stop: 04/01/23 07:59 Last Admin: 03/20/23 08:21 Dose: 200 mg Artificial Tears (Artificial Tears) 1 drops OPB QID PRN PRN Reason: Dryness Stop: 04/08/23 12:17 Atorvastatin Calcium (Atorvastatin 40 Mg Tab) 80 mg PEG QPM SUMA Stop: 04/08/23 20:59 Last Admin: 03/11/23 20:18 Dose: 80 mg Cholestyramine Resin (Cholestyramine Light 4 Gm Pkt) 4 gm PO BID@1000,2200 [facility] Stop: 04/01/23 09:59 Last Admin: 03/20/23 09:39 Dose: 4 gm Clopidogrel Bisulfate (Clopidogrel Bisulfate 75 Mg Tab) 75 mg PEG QAM [facility] Stop: 04/09/23 08:59 Last Admin: 03/20/23 08:20 Dose: 75 mg Dextrose (Dextrose 50% 50 Ml Syringe) 25 - 50 ml IV UD PRN; Protocol PRN Reason: Hypoglycemia Protocol Stop: 04/01/23 05:48 Enoxaparin Sodium (Enoxaparin Inj 60 Mg/0.6 Ml Syr) 60 mg SQ Q12H [facility] Stop: 04/02/23 16:14 Last Admin: 03/20/23 05:48 Dose: 60 mg Ferrous Sulfate (Ferrous Sulfate 325 Mg/7.4 Ml Udp) 325 mg PO QAM [facility] Stop: 04/04/23 10:59 Last Admin: 03/20/23 08:21 Dose: 325 mg Glucagon (Glucagon For Inj 1 Mg Vial) 1 mg SQ UD PRN; Protocol PRN Reason: Hypoglycemia Protocol Stop: 04/01/23 05:48 Glucose (Glucose 10 Tab/Tube) 4 - 8 tab PO UD PRN; Protocol PRN Reason: Hypoglycemia Treatment Stop: 04/01/23 05:48 Glucose (Glucose 40% Gel 15 Gm Tube) 15 - 30 gm PO UD PRN; Protocol PRN Reason: Hypoglycemia Protocol Stop: 04/01/23 05:48 Promethazine HCl (Phenergan) 6.25 mg in 50.25 mls @ 201 mls/hr IV Q6H PRN PRN Reason: Nausea And Vomiting Stop: 04/01/23 03:59 Daptomycin 300 mg/ Syringe 6 mls @ 3 mls/min IV Q24H [facility]; Protocol Stop: 03/27/23 07:59 Last Admin: 03/20/23 09:34 Dose: 3 mls/min Piperacillin Sod/Tazobactam (Sod 4.5 gm/ Dextrose) 100 mls @ 25 mls/hr IV Q8H [facility]; Protocol Stop: 03/27/23 07:59 Last Admin: 03/20/23 09:34 Dose: 25 mls/hr Insulin Aspart (Insulin Aspart Per Unit Charge) 0 units SC ACHS [facility] Stop: 04/17/23 07:29 Last Admin: 03/20/23 09:38 Dose: 15 units Insulin Glargine (Lantus Per Unit Charge) 24 units SC BID [facility] Stop: 04/17/23 08:59 Last Admin: 03/20/23 09:38 Dose: 24 units Lactobacillus Acidophilus (Advanced Probiotic 1250 Mg Capsule) 2 cap PO DAILY [facility] Stop: 04/12/23 08:59 Last Admin: 03/20/23 08:21 Dose: 2 cap Magnesium Oxide (Magnesium Oxide 400 Mg Tab) 400 mg PEG BID [facility] Stop: 04/01/23 08:59 Last Admin: 03/20/23 08:20 Dose: 400 mg Metoprolol Tartrate (Metoprolol Tartrate 25 Mg Tab) 25 mg PEG BID [facility] Stop: 04/08/23 20:59 Last Admin: 03/20/23 08:20 Dose: 25 mg Miconazole Nitrate (Miconazole Nitrate Powder 85 Gm) 1 appln EXT PRN PRN PRN Reason: fungal rash Stop: 04/01/23 06:26 Miscellaneous (Carbohydrates For Hypoglycemia ) 15 - 30 gm PO UD PRN PRN Reason: Hypoglycemia Protocol Stop: 04/01/23 05:48 Multivitamins/Minerals (Multi Vit W/Minerals Liquid 15 Ml Udp) 15 ml PEG QAM [facility] Stop: 04/01/23 08:59 Last Admin: 03/20/23 08:21 Dose: 15 ml Nitroglycerin (Nitroglycerin Sl 0.4 Mg/Tab Tab) 0.4 mg SL UD PRN PRN Reason: Chest Pain Stop: 04/01/23 06:26 Nutritional Formula (Peptamen Intense Vhp 1.0 Checo 1,000 Ml Bag) 1,000 ml PEG TODAY@2000 [facility]; Protocol Stop: 04/01/23 19:59 Last Admin: 03/19/23 22:22 Dose: 1,000 ml Polyethylene Glycol (Polyethylene (Miralax) 17 Gm Pack) 17 gm PO DAILY PRN PRN Reason: Constipation Stop: 04/16/23 16:11 Sterile Water (Tube Feeding Water Flush) 150 ml PEG Q6H [facility] Stop: 04/03/23 18:59 Last Admin: 03/20/23 06:02 Dose: 150 ml Tamsulosin HCl (Tamsulosin Hcl 0.4 Mg Cap) 0.4 mg PO HS [facility] Stop: 04/01/23 20:59 Last Admin: 03/19/23 22:00 Dose: 0.4 mg Tamsulosin HCl (Tamsulosin Hcl 0.4 Mg Cap) 0.4 mg PEG QAM [facility] Stop: 04/01/23 08:59 Last Admin: 03/20/23 08:20 Dose: 0.4 mg
[2023-03-20] MEDS: PEPTAMEN INTENSE VHP 1.0 CAL 1,000 ML BAG PEG SCH (20:54)
[2023-03-20] MEDS: TAMSULOSIN HCL 0.4 MG CAP PO SCH (20:59)
[2023-03-21] MEDS: TUBE FEEDING WATER FLUSH PEG SCH ×4 (02:05→18:26)
[2023-03-21] MEDS: ENOXAPARIN INJ 60 MG/0.6 ML SYR SQ SCH ×2 (05:55→18:26)
[2023-03-21 08:16] LABS: Hematocrit (blood only) 30.3 % (42.0-52.0); Hemoglobin 9.1 g/dl (14.0-18.0); Mean Corpuscular Hemoglobin 22.2 pg (25.0-34.0); Mean Corpuscular Volume 74.1 fL (80.0-100.0); Mean Platelet Volume 10.7 fL (9.4-12.4); Platelet Count 454 K/uL (130-400); RDW Coefficient of Variation 19.7 % (11.5-14.5); RDW Standard Deviation 51.4 fL (36.4-46.3); Red Blood Count 4.09 M/uL (4.70-6.10); White Blood Count 6.73 K/ul (4.8-10.8)
[2023-03-21 08:41] LABS: C Reactive Protein 3.4 mg/dl (0-0.5); Calcium 8.4 mg/dl (8.6-10.3); Creatinine Clr Calc Pharmacy 179.2 ml/min; Est GFR (African American) 141.2 ml/min; Est GFR (Non-African American) 121.9 ml/min; Magnesium 1.8 mg/dl (1.7-2.4); Phosphorus 3.3 mg/dl (2.5-4.9); Potassium 3.7 mmol/L (3.5-5.1)
--- NOTE | 2023-03-21 09:17 | Hospitalist Progress Note ---
Date of Service March 21, 2023 Assessment & Plan (1) Fever: (2) Infected decubitus ulcer: (3) Splenic infarction: (4) Acute hyponatremia: (5) Hematuria: (6) Aortic stenosis: (7) Paroxysmal atrial fibrillation: (8) Peripheral arterial disease: (9) History of CVA (cerebrovascular accident): (10) BPH with obstruction/lower urinary tract symptoms: (11) Type 2 diabetes mellitus: (12) HTN (hypertension): Plan Fever Infected Decubitus ulcer Last temp 38 or greater was on 03/16 Due to infected decubitus ulcer Patient was stable for discharge awaiting placement and then developed a fever for which work up was done which shows infected sacral ulcer again. Wound culture growing MRSA sensitive to vancomycin and daptomycin. General surgery was consulted-no plans for debridement. Wound Care- off of wound vac currently to allow peripheral healing. Per iD recs- DISCONTINUE antibiotics (was on daptomycin) and monitor off abx with aggressive wound care. Blood Cultures negative. Fever currently resolved Acute splenic infarct Chronic renal infarcts Noted on CT Abd/pelvis: "an acute splenic infarct measuring up to 6 mm with chronic renal infarcts and cortical scarring again noted." Continue therapeutic Lovenox Previous provider discussed with surgery on 03/17/2023: No further intervention needed for acute splenic infarct Hyponatremia Hypomagnesia replete as needed Currently resolved. Hematuria Trent hematuria noted in the facility Likely secondary to trauma due to Hagan catheter CT scan of the chest and pelvis did show nonspecific thickening of the bladder wall Urine culture negative Hematuria resolved Lovenox resumed without recurrence of hematuria CBC remains stable Aortic Stenosis H/O severe aortic stenosis Stable Paroxysmal Atrial Fibrillation As per prior provider On the night of December 07 ; patient converted to atrial fibrillation with rapid ventricular response. He was startedamiodarone drip as per cardiology recommendation Converted back to sinus rhythm on December 08 after 5 hours. Repeat echocardiogram was done; found to have moderately reduced EF of 35 to 40% with severe Rate remains controlled without any cardiac symptoms -- Continue amiodarone, metoprolol On therapeutic dose of Lovenox SQ for anticoagulation Hx of CVA History of recurrent CVA despite DAPT and anticoagulation therapy Chronic right hemiplegia/left arm paralysis/mostly nonverbal/expressive aphasia/dysphagia with PEG tube Continue statin, Plavix/Lovenox BPH/LUTS Hagan in place Continue tamsulosin. DMII A1c of 6.9 on 09/26. Continue Lantus, sliding scale insulin. Adjust as indicated HTN BP overall stable. Continue metoprolol. Resume lisinopril if BP remains high. Right heel wound Wound culture showed Corynebacterium species Completed antibiotics on 03/06/2023 as per the ID recommendation. Continue wound care Diet: has PEG DVT prophylaxis: Therapeutic anticoagulation with Lovenox Disposition-Bed search once pt medically stable Admission and Anticipated Discharge Date Admission Date: March 02, 2023 Subjective Pt seen with at bedside. concerned about labs. Pt moaning, notes that he was recently turned and dressing placed. Review of Systems Review of Systems: Unobtainable due to cognitive status Physical Exam Physical Exam: General: Alert Skin: pt in mild discomfort and wound recently dressed, could not fully examine. Skin in the area seen non erythematous Psych: could not be determined Neuro: moaning, difficulty with movements HEENT: NC/AT Chest: Nontender to palpation. CV: RRR Resp: no increased effort of breathing Abdomen: Soft Results & Data Results & Data Vital Signs (Past 12 Hours) Vital Signs Temp Pulse Pulse Resp BP Pulse Ox O2 Del Method 03/21/23 07:38 77 03/21/23 04:37 36.6 C 83 18 126/74 96 Room Air 03/21/23 01:01 36.6 C 74 18 130/72 94 Room Air 03/20/23 21:55 69
[2023-03-21] MEDS: INSULIN ASPART PER UNIT CHARGE SC SCH ×4 (09:43→20:34)
[2023-03-21] MEDS: LANTUS PER UNIT CHARGE SC SCH ×2 (09:44→20:34)
[2023-03-21] MEDS: TAMSULOSIN HCL 0.4 MG CAP PEG SCH (09:46)
[2023-03-21] MEDS: CHOLESTYRAMINE LIGHT 4 GM PKT PO SCH ×2 (09:46→23:06)
[2023-03-21] MEDS: METOPROLOL TARTRATE 25 MG TAB PEG SCH ×2 (09:46→20:35)
[2023-03-21] MEDS: CLOPIDOGREL BISULFATE 75 MG TAB PEG SCH (09:46)
[2023-03-21] MEDS: AMIODARONE 200 MG TAB PEG SCH ×2 (09:46→17:29)
[2023-03-21] MEDS: ADVANCED PROBIOTIC 1250 MG CAPSULE PO SCH (09:46)
[2023-03-21] MEDS: MAGNESIUM OXIDE 400 MG TAB PEG SCH ×2 (09:46→20:36)
[2023-03-21] MEDS: FERROUS SULFATE 325 MG/7.4 ML UDP PO SCH (09:47)
[2023-03-21] MEDS: MULTI VIT W/MINERALS LIQUID 15 ML UDP PEG SCH (09:47)
[2023-03-21] MEDS: PIPERACILLIN/TAZOBACTAM 4.5 GM in DEXTROSE 5% MINI-B 100 ML IV SCH ×3 (10:50→23:10)
[2023-03-21] MEDS: DAPTOmycin 300 MG in SYRINGE 0 ML IV SCH (10:50)
[2023-03-21] MEDS: PEPTAMEN INTENSE VHP 1.0 CAL 1,000 ML BAG PEG SCH (20:35)
[2023-03-21] MEDS: TAMSULOSIN HCL 0.4 MG CAP PO SCH (20:37)
[2023-03-22] MEDS: TUBE FEEDING WATER FLUSH PEG SCH ×4 (01:00→18:08)
[2023-03-22] MEDS: ENOXAPARIN INJ 60 MG/0.6 ML SYR SQ SCH ×2 (04:56→18:06)
[2023-03-22] MEDS: AMIODARONE 200 MG TAB PEG SCH ×2 (08:13→18:06)
[2023-03-22] MEDS: ADVANCED PROBIOTIC 1250 MG CAPSULE PO SCH (08:13)
[2023-03-22] MEDS: TAMSULOSIN HCL 0.4 MG CAP PEG SCH (08:13)
[2023-03-22] MEDS: CLOPIDOGREL BISULFATE 75 MG TAB PEG SCH (08:13)
[2023-03-22] MEDS: MULTI VIT W/MINERALS LIQUID 15 ML UDP PEG SCH (08:13)
[2023-03-22] MEDS: METOPROLOL TARTRATE 25 MG TAB PEG SCH ×2 (08:13→19:47)
[2023-03-22] MEDS: MAGNESIUM OXIDE 400 MG TAB PEG SCH ×2 (08:13→19:47)
[2023-03-22] MEDS: FERROUS SULFATE 325 MG/7.4 ML UDP PO SCH (08:14)
[2023-03-22 08:59] LABS: Basophils # (auto) 0.03 K/uL (0.00-0.20); Basophils % (auto) 0.4 %; Eosinophils # (auto) 0.17 K/uL (0.00-0.50); Eosinophils % (auto) 2.3 %; Hematocrit (blood only) 31.5 % (42.0-52.0); Hemoglobin 9.3 g/dl (14.0-18.0); Immature Granulocytes # (auto) 0.03 K/uL (0.01-0.20); Immature Granulocytes % (auto) 0.4 %; Lymphocytes % (auto) 24.3 %; Mean Corpuscular Hemoglobin 22.1 pg (25.0-34.0); Mean Corpuscular Hgb Conc 29.5 g/dL (32.0-36.0); Mean Platelet Volume 10.8 fL (9.4-12.4); Monocytes # (auto) 0.49 K/uL (0.11-0.59); Monocytes % (auto) 6.6 %; Platelet Count 446 K/uL (130-400); RDW Coefficient of Variation 19.9 % (11.5-14.5); RDW Standard Deviation 52.7 fL (36.4-46.3); White Blood Count 7.42 K/ul (4.8-10.8)
[2023-03-22] MEDS: DAPTOmycin 300 MG in SYRINGE 0 ML IV SCH (09:06)
[2023-03-22] MEDS: PIPERACILLIN/TAZOBACTAM 4.5 GM in DEXTROSE 5% MINI-B 100 ML IV SCH (09:06)
[2023-03-22] MEDS: INSULIN ASPART PER UNIT CHARGE SC SCH ×4 (09:07→19:45)
[2023-03-22] MEDS: LANTUS PER UNIT CHARGE SC SCH ×2 (09:08→19:44)
[2023-03-22] MEDS: CHOLESTYRAMINE LIGHT 4 GM PKT PO SCH ×2 (09:11→23:05)
[2023-03-22 09:20] LABS: Albumin Globulin Ratio 0.8 (0.9-2); Albumin Level 2.8 gm/dl (3.4-5.0); BUN Creatinine Ratio 93.3 (10-20); Bilirubin,Total 0.2 mg/dl (0.2-1.0); Calcium 8.5 mg/dl (8.6-10.3); Creatinine Clr Calc Pharmacy 171.7 ml/min; Est GFR (African American) 138.6 ml/min; Est GFR (Non-African American) 119.6 ml/min; Globulin 3.4 gm/dl (2.5-4.0); Magnesium 1.8 mg/dl (1.7-2.4); Phosphorus 3.2 mg/dl (2.5-4.9); Potassium 4.2 mmol/L (3.5-5.1); Total Protein 6.2 gm/dl (6.0-8.3)
--- NOTE | 2023-03-22 12:41 | Infectious Disease Consult ---
Date of Service March 22, 2023 Telehealth Information I performed this visit using a real-time telehealth connection between my location and the patients location ([facility]). After connecting through interactive tele-video, patient was identified by name and date of and/or wristband check.Patient (or authorized healthcare shared services representative) was informed that this was a telemedicine visit and it was being conducted confidentially over secure lines. My office door was closed and no one else was present in the room with me.Patient (or authorized healthcare shared services representative) provided consent to proceed with the visit, expressed an understanding of privacy and security of the telemedicine visit, and gave permission to have a hospital shared services representative in the room in order to assist with the visit and to conduct portions of the visit, as needed. I informed the patient (or authorized healthcare shared services representative) that I reviewed their record and presented the opportunity for them to ask any questions regarding the visit today. The patient agreed to participate. Assessment & Plan (1) Chronic ulcer of sacral region: (2) Chronic osteomyelitis of sacrum: Plan: Assessment Known chronic sacral decub ulcer Known chronic sacrococcygeal OM Hx of CAD s/p CABG, PVD, PAF, HTN, CVA, recurrent DVT on lovenox, chronic dysphagia s/p PEG, BPH on chronic indwelling catheter Hx of allergy to bactrim Recommendation: - Stop both daptomycin and zosyn - Monitor off abx - Aggressive wound care: concerned w/ fecal contaminatoin of the wound - ID signing off The patient should probably be monitored off abx w/ aggressive wound care as the picture of the wound from 03/21/23 appears healthy w/o any active soft tissue infection. There is no point in doing another long-term abx therapy w/o any surgical debridement for the known chronic sacrococcygeal osteomyelitis in the setting of chronic sacral decubitus ulcer. There is no proven benefit. Although the patient does no appear to have diarrhea, recent wound care note reports contamination of the wound w/ fecal material. This will likely hamper the wound healing and put the patient at risk for infection down to road. Perhaps, the patient needs diverting ostomy to promote healing along w/ other measures. More than 50% of [id number] visit was spent counseling and coordinating care pertaining to the patient's infection diagnosis, additional work-up, and treatment option(s) as well as potential adverse events of the treatment. History of Present Illness History of Present Illness This is a 62 y/o male w/ hx of stroke w/ paraplegia and multiple medical issue including but not limited to chronic sacro coccygeal OM in the setting of chronic sacral decub ulcer, who was discharged in mid February on a long-term abx therapy w/ bactrim and metronidazole (w/ plan to complete on 03/06/23) but returned to [facility] on 03/02/23 as hematuria was noted. Found to have hyponatremia possibly secondary to bactrim. Since admission, the patient has been on daptomycin and cefepime (admission to 03/06/23) and off abx until 03/14/23 when the patient had 2 episodes of fever. He was started on daptomycin and zosyn. ID was called to comment on the abx therapy. Nasreen, patients , CHRISTELLE, is at bedside. As the patient was nonverbal, Nasreen, assisted in answering question. No diarrhea. No ongoing fever. No report of coughing. Allergies Allergy/AdvReac Type Severity Reaction Status Date / Time sulfamethoxazole AdvReac Intermediate Verified 03/02/23 04:17 [From Bactrim] trimethoprim [From Bactrim] AdvReac Intermediate Verified 03/02/23 04:17 Home Medications Medication Instructions Recorded Confirmed Type nitroglycerin 0.4 mg sublingual 0.4 mg sublingual DIRECTED PRN 08/09/19 03/02/23 History tablet Chest Pain tamsulosin 0.4 mg capsule 0.4 mg PO HS 01/11/21 03/02/23 History atorvastatin 80 mg tablet 80 mg feeding tube QPM 05/17/21 03/02/23 History clopidogrel 75 mg tablet (Plavix) 75 mg feeding tube QAM 11/17/22 03/02/23 History enoxaparin 120 mg/0.8 mL 70 mg subcut Q12 11/17/22 03/02/23 History subcutaneous syringe ferrous sulfate 325 mg (65 mg 325 mg PO QAM 11/17/22 03/02/23 History iron) tablet,delayed release lisinopril 5 mg tablet 5 mg feeding tube DAILY 11/17/22 03/02/23 History Tube Feeding Water Flush 100 ml PEG Q6H 30 days 02/24/23 03/02/23 Rx acetaminophen 325 mg/10.15 mL oral 650 mg (20.3 mL) PEG Q6H PRN fever 02/24/23 03/02/23 Rx suspension or pain 30 days #300 mL amiodarone 200 mg tablet 200 mg PEG BIDM 30 days #60 tabs 02/24/23 03/02/23 Rx cholestyramine-aspartame 4 gram 4 g PO BID@1000,2200 30 days #60 ea 02/24/23 03/02/23 Rx oral powder for susp in a packet (Prevalite) insulin aspart U-100 100 unit/mL 1 unit (0.01 mL) SC BID@1130,1630 02/24/23 03/02/23 Rx subcutaneous solution (Novolog 30 days #100 mL U-100 Insulin aspart) insulin aspart U-100 100 unit/mL 1 unit (0.01 mL) SC DAILY@0730 30 02/24/23 03/02/23 Rx subcutaneous solution (Novolog days #100 mL U-100 Insulin aspart) insulin aspart U-100 100 unit/mL 1 unit (0.01 mL) SC DAILY@1999 30 02/24/23 03/02/23 Rx subcutaneous solution (Novolog days #100 mL U-100 Insulin aspart) magnesium oxide 400 mg (241.3 mg 400 mg PEG BID 30 days #60 tabs 02/24/23 03/02/23 Rx magnesium) tablet metronidazole 500 mg tablet 500 mg feeding tube Q8 9 days #27 02/24/23 03/02/23 Rx tabs miconazole nitrate 2 % topical 1 applic EXT PRN PRN fungal rash 02/24/23 03/02/23 Rx powder (Desenex) 30 days #85 grams multivit and minerals-ferrous 15 ml PEG QAM 30 days #450 mL 02/24/23 03/02/23 Rx gluconate 9 mg iron/15 mL oral liquid (Centrum) nystatin 100,000 unit/gram topical 1 applic EXT BID 14 days #15 grams 02/24/23 03/02/23 Rx cream sulfamethoxazole 200 20 ml feeding tube Q12 9 days #360 02/24/23 03/02/23 Rx mg-trimethoprim 40 mg/5 mL oral mL suspension tamsulosin 0.4 mg capsule 0.4 mg PEG QAM #30 caps 02/24/23 03/02/23 Rx insulin glargine 100 unit/mL 16 unit SC BID@0830,199903/02/23 03/02/23 History subcutaneous solution (Lantus U-100 Insulin) Patient History Medical History Altered mental status Aortic valve stenosis BPH with obstruction/lower urinary tract symptoms CAD (coronary artery disease) 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 in the setting of diabetes for which patient initially underwent off pump 3 vessel coronary artery bypass grafting in 2006 with DUARTE to LAD, SVG to circumflex and SVG to PDA Bare metal stent to protected left main coronary artery 08/13/2015 PCI drug-eluting stent to the saphenous vein graft to RPDA 04/17/2014 PCI, drug-eluting stent to the ostial portion of the SVG to RCA 12/04/2014 for severe in stent restenosis Carotid stenosis Diabetic peripheral neuropathy associated with type 2 diabetes mellitus Discussion about advance care planning held with family member Dyslipidemia H/O deep venous thrombosis Hemiplegia affecting right dominant side History of CVA (cerebrovascular accident) History of pancreatitis HTN (hypertension) Hypomagnesemia Monoplegia affecting right dominant side Obesity Osteomyelitis of great toe of right foot Palliative care by specialist Persistent wound pain Preoperative cardiovascular examination Proliferative diabetic retinopathy Retinal edema Right foot drop Status post administration of all doses of COVID-19 vaccine series Status post cerebrovascular accident Status post myocardial infarction Superior mesenteric artery stenosis Type 2 diabetes mellitus Weakness generalized Surgical History Hx of vitrectomy S/P angioplasty with stent S/P CABG x 3 S/P debridement (09/16/22) Debridement of Sacral Wound with Wound Vac Placement(Not Applicable) - Ruth Ann Vaz, S/P percutaneous endoscopic gastrostomy (PEG) tube placement S/P PTCA (percutaneous transluminal coronary angioplasty) Family History Father Heart disease Social History Smoking Status: Unknown if ever smoked Tobacco Type: Cigarettes Second Hand Exposure: No; Do You Dip or Chew Tobacco: No; Hx Alcohol Use: No Hx Substance Use: No Preferred Language: Tongan Communication Ability: Impaired Communication Ability Comment: Intermittent Confusion and history of CVA. Visual Impairment: No Limitations Hearing Ability: Normal Train Reservation Clerk Required: No Beliefs That Will Affect Care: Spiritual marital status: Current Living Situation: Group Home current occupational status: disabled Other Information That Helps Us Care for You: No Feels Safe at Home: Yes Safety Concerns: Feels Safe At This Time Assistive Devices: Glasses Review of Systems as HPI and all others negative Physical Exam Gen: no acute distress Neuro: eye open but not verbal, not following commands Results & Data Vital Signs (Past 12 Hours) Vital Signs Temp Pulse Pulse Resp BP Pulse Ox O2 Del Method 03/22/23 11:18 36.9 C 70 16 106/57 L 96 Room Air 03/22/23 10:19 Room Air 03/22/23 07:42 37.0 C 79 16 112/71 97 Room Air 03/22/23 07:23 71 03/22/23 04:48 36.6 C 82 20 128/68 96 Room Air Laboratory Results WBC 7.42K H 9.3 Plt Plt 446K Cr 0.45 CRP 3.4 Buttock surface wound cx (03/16/23): MRSA (R to clinda; S to dapto, rif, tetra, bact, vanco) CXR: 1. Cardiomegaly with evidence of congestive failure. 2. Left basilar opacities are similar to previous. This could represent scarring/atelectasis versus an infectious/inflammatory pneumonitis. Clinical correlation will be required. Diagnostic Findings CT A/P: 1. Chronic sacral decubitus ulcer with chronic sacrococcygeal osteomyelitis again noted. There is cellulitis without abscess. 2. There is an acute splenic infarct measuring up to 6 mm with chronic renal infarcts and cortical scarring again noted. 3. No bowel obstruction. 4. Gastrostomy tube in place. 5. Constipation with stercoral proctitis. 6. Small to moderate pleural effusions with mild bibasilar consolidation. Medications Administered Zosyn and daptomycin iv
[2023-03-22] MEDS: TAMSULOSIN HCL 0.4 MG CAP PO SCH (19:46)
[2023-03-22] MEDS: PEPTAMEN INTENSE VHP 1.0 CAL 1,000 ML BAG PEG SCH (19:47)
--- NOTE | 2023-03-22 20:08 | Hospitalist Progress Note ---
Date of Service March 22, 2023 Assessment & Plan (1) Fever: (2) Infected decubitus ulcer: (3) Splenic infarction: (4) Acute hyponatremia: (5) Hematuria: (6) Aortic stenosis: (7) Paroxysmal atrial fibrillation: (8) Peripheral arterial disease: (9) History of CVA (cerebrovascular accident): (10) BPH with obstruction/lower urinary tract symptoms: (11) Type 2 diabetes mellitus: (12) HTN (hypertension): Plan Fever Infected Decubitus ulcer Last temp 38 or greater was on 03/16 Due to infected decubitus ulcer Patient was stable for discharge awaiting placement and then developed a fever for which work up was done which shows infected sacral ulcer again. Wound culture growing MRSA sensitive to vancomycin and daptomycin. General surgery was consulted-no plans for debridement. Wound Care- off of wound vac currently to allow peripheral healing. Per iD recs- DISCONTINUE antibiotics (was on daptomycin) and monitor off abx with aggressive wound care. Blood Cultures negative. Fever currently resolved Acute splenic infarct Chronic renal infarcts Noted on CT Abd/pelvis: "an acute splenic infarct measuring up to 6 mm with chronic renal infarcts and cortical scarring again noted." Continue therapeutic Lovenox Previous provider discussed with surgery on 03/17/2023: No further intervention needed for acute splenic infarct Hyponatremia Hypomagnesia replete as needed Currently resolved. Hematuria Trent hematuria noted in the facility Likely secondary to trauma due to Hagan catheter CT scan of the chest and pelvis did show nonspecific thickening of the bladder wall Urine culture negative Hematuria resolved Lovenox resumed without recurrence of hematuria CBC remains stable Aortic Stenosis H/O severe aortic stenosis Stable Paroxysmal Atrial Fibrillation As per prior provider On the night of December 07 ; patient converted to atrial fibrillation with rapid ventricular response. He was startedamiodarone drip as per cardiology recommendation Converted back to sinus rhythm on December 08 after 5 hours. Repeat echocardiogram was done; found to have moderately reduced EF of 35 to 40% with severe Rate remains controlled without any cardiac symptoms -- Continue amiodarone, metoprolol On therapeutic dose of Lovenox SQ for anticoagulation Hx of CVA History of recurrent CVA despite DAPT and anticoagulation therapy Chronic right hemiplegia/left arm paralysis/mostly nonverbal/expressive aphasia/dysphagia with PEG tube Continue statin, Plavix/Lovenox BPH/LUTS Hagan in place Continue tamsulosin. DMII A1c of 6.9 on 09/26. Continue Lantus, sliding scale insulin. Adjust as indicated HTN BP overall stable. Continue metoprolol. Resume lisinopril if BP remains high. Right heel wound Wound culture showed Corynebacterium species Completed antibiotics on 03/06/2023 as per the ID recommendation. Continue wound care Diet: has PEG DVT prophylaxis: Therapeutic anticoagulation with Lovenox Disposition-Bed search once pt medically stable Admission and Anticipated Discharge Date Admission Date: March 02, 2023 Subjective Pt seen multiple times during the day. At first not at bedside, pt resting comfortably. Later in the day, at bedside, discussion of ID recommendations Review of Systems Review of Systems: Unobtainable due to cognitive status Physical Exam Physical Exam: General: sleeping Psych: could not be determined Neuro: difficulty with movements HEENT: NC/AT Chest: Nontender to palpation. CV: RRR, blowing murmur Resp: no increased effort of breathing Abdomen: Soft Results & Data Results & Data Vital Signs (Past 12 Hours) Vital Signs Temp Pulse Pulse Resp BP Pulse Ox O2 Del Method 03/22/23 15:15 77 03/22/23 11:18 36.9 C 70 16 106/57 L 96 Room Air 03/22/23 10:19 Room Air 03/22/23 07:42 37.0 C 79 16 112/71 97 Room Air 03/22/23 07:23 71 03/22/23 04:48 36.6 C 82 20 128/68 96 Room Air
[2023-03-23] MEDS: TUBE FEEDING WATER FLUSH PEG SCH ×4 (00:01→19:42)
[2023-03-23] MEDS: ENOXAPARIN INJ 60 MG/0.6 ML SYR SQ SCH ×2 (05:13→17:45)
[2023-03-23 05:16] LABS: Basophils # (auto) 0.04 K/uL (0.00-0.20); Basophils % (auto) 0.6 %; Eosinophils # (auto) 0.24 K/uL (0.00-0.50); Eosinophils % (auto) 3.4 %; Hemoglobin 9.3 g/dl (14.0-18.0); Immature Granulocytes # (auto) 0.03 K/uL (0.01-0.20); Immature Granulocytes % (auto) 0.4 %; Lymphocytes # (auto) 1.69 K/uL (1.20-3.40); Lymphocytes % (auto) 23.8 %; Mean Corpuscular Hemoglobin 22.2 pg (25.0-34.0); Mean Corpuscular Volume 74.2 fL (80.0-100.0); Mean Platelet Volume 10.6 fL (9.4-12.4); Monocytes # (auto) 0.48 K/uL (0.11-0.59); Monocytes % (auto) 6.8 %; Neutrophils # (auto) 4.61 K/uL (1.40-6.50); Platelet Count 478 K/uL (130-400); RDW Coefficient of Variation 20.2 % (11.5-14.5); RDW Standard Deviation 52.1 fL (36.4-46.3); Red Blood Count 4.18 M/uL (4.70-6.10); White Blood Count 7.09 K/ul (4.8-10.8)
[2023-03-23 05:34] LABS: Albumin Globulin Ratio 0.8 (0.9-2); Albumin Level 2.8 gm/dl (3.4-5.0); BUN Creatinine Ratio 112.2 (10-20); Bilirubin,Total 0.2 mg/dl (0.2-1.0); Calcium 8.7 mg/dl (8.6-10.3); Creatinine Clr Calc Pharmacy 193.9 ml/min; Est GFR (Non-African American) 124.3 ml/min; Globulin 3.3 gm/dl (2.5-4.0); Magnesium 1.8 mg/dl (1.7-2.4); Potassium 3.9 mmol/L (3.5-5.1); Total Protein 6.1 gm/dl (6.0-8.3)
[2023-03-23 05:36] LABS: Anisocytosis Present; Ovalocytes 1+; Polychromasia 1+
[2023-03-23] MEDS: MULTI VIT W/MINERALS LIQUID 15 ML UDP PEG SCH (08:23)
[2023-03-23] MEDS: ADVANCED PROBIOTIC 1250 MG CAPSULE PO SCH (08:23)
[2023-03-23] MEDS: AMIODARONE 200 MG TAB PEG SCH ×2 (08:23→17:47)
[2023-03-23] MEDS: METOPROLOL TARTRATE 25 MG TAB PEG SCH ×2 (08:23→20:06)
[2023-03-23] MEDS: CLOPIDOGREL BISULFATE 75 MG TAB PEG SCH (08:23)
[2023-03-23] MEDS: TAMSULOSIN HCL 0.4 MG CAP PEG SCH (08:23)
[2023-03-23] MEDS: FERROUS SULFATE 325 MG/7.4 ML UDP PO SCH (08:23)
[2023-03-23] MEDS: MAGNESIUM OXIDE 400 MG TAB PEG SCH ×2 (08:23→20:06)
--- NOTE | 2023-03-23 09:04 | Hospitalist Progress Note ---
Date of Service March 23, 2023 Assessment & Plan (1) Fever: (2) Infected decubitus ulcer: (3) Splenic infarction: (4) Acute hyponatremia: (5) Hematuria: (6) Aortic stenosis: (7) Paroxysmal atrial fibrillation: (8) Peripheral arterial disease: (9) History of CVA (cerebrovascular accident): (10) BPH with obstruction/lower urinary tract symptoms: (11) Type 2 diabetes mellitus: (12) HTN (hypertension): Plan Fever Infected Decubitus ulcer Last temp 38 or greater was on 03/16 Due to infected decubitus ulcer Patient was stable for discharge awaiting placement and then developed a fever for which work up was done which showed infected sacral ulcer again. Wound culture growing MRSA sensitive to vancomycin and daptomycin. General surgery was consulted-no plans for debridement. Wound Care- off of wound vac currently to allow peripheral healing. Per iD recs- DISCONTINUE antibiotics (was on daptomycin) and monitor off abx with aggressive wound care. Blood Cultures negative. Fever currently resolved- even after discontinuing abx Acute splenic infarct Chronic renal infarcts Noted on CT Abd/pelvis: "an acute splenic infarct measuring up to 6 mm with chronic renal infarcts and cortical scarring again noted." Continue therapeutic Lovenox Previous provider discussed with surgery on 03/17/2023: No further intervention needed for acute splenic infarct Hyponatremia Hypomagnesia replete as needed Currently resolved. Hematuria Trent hematuria noted in the facility Likely secondary to trauma due to Hagan catheter CT scan of the chest and pelvis did show nonspecific thickening of the bladder wall Urine culture negative Hematuria resolved Lovenox resumed without recurrence of hematuria CBC remains stable Aortic Stenosis H/O severe aortic stenosis Stable Paroxysmal Atrial Fibrillation As per prior provider On the night of December 07 ; patient converted to atrial fibrillation with rapid ventricular response. He was startedamiodarone drip as per cardiology recommendation Converted back to sinus rhythm on December 08 after 5 hours. Repeat echocardiogram was done; found to have moderately reduced EF of 35 to 40% with severe Rate remains controlled without any cardiac symptoms -- Continue amiodarone, metoprolol On therapeutic dose of Lovenox SQ for anticoagulation Hx of CVA History of recurrent CVA despite DAPT and anticoagulation therapy Chronic right hemiplegia/left arm paralysis/mostly nonverbal/expressive aphasia/dysphagia with PEG tube Continue statin, Plavix/Lovenox BPH/LUTS Hagan in place Continue tamsulosin. DMII A1c of 6.9 on 09/26. Continue Lantus, sliding scale insulin. Adjust as indicated HTN BP overall stable. Continue metoprolol. Resume lisinopril if BP remains high. Right heel wound Wound culture showed Corynebacterium species Completed antibiotics on 03/06/2023 as per the ID recommendation. Continue wound care Diet: has PEG DVT prophylaxis: Therapeutic anticoagulation with Lovenox Disposition-pt medically stable, bed search per Admission and Anticipated Discharge Date Admission Date: March 02, 2023 Subjective Pt seen during the day, and nurse at bedside. Stated that he was stable, plan discussed with and nurse at bedside. No acute events overnight, has been fever free since discontinuing the abx per nursing. Review of Systems Review of Systems: All systems reviewed & are unremarkable except as noted in Subjective Physical Exam Physical Exam: General: sleeping Psych: could not be determined Neuro: difficulty with movements HEENT: NC/AT Chest: Nontender to palpation. CV: RRR, blowing murmur Resp: no increased effort of breathing Abdomen: Soft Results & Data Results & Data Vital Signs (Past 12 Hours) Vital Signs Temp Pulse Pulse Resp BP Pulse Ox O2 Del Method 03/23/23 07:29 37.1 C 78 17 135/82 98 Room Air 03/23/23 00:00 61 03/23/23 03:19 37.0 C 67 18 128/71 95 Room Air 03/22/23 23:31 36.9 C 68 18 130/78 96 Room Air
[2023-03-23] MEDS: LANTUS PER UNIT CHARGE SC SCH ×2 (09:09→20:07)
[2023-03-23] MEDS: INSULIN ASPART PER UNIT CHARGE SC SCH ×4 (09:09→19:51)
[2023-03-23] MEDS: CHOLESTYRAMINE LIGHT 4 GM PKT PO SCH ×2 (09:53→22:43)
[2023-03-23] MEDS: TAMSULOSIN HCL 0.4 MG CAP PO SCH (20:06)
[2023-03-23] MEDS: PEPTAMEN INTENSE VHP 1.0 CAL 1,000 ML BAG PEG SCH (20:07)
[2023-03-24] MEDS: TUBE FEEDING WATER FLUSH PEG SCH ×4 (01:00→18:13)
[2023-03-24 05:36] LABS: Albumin Globulin Ratio 0.8 (0.9-2); Albumin Level 2.7 gm/dl (3.4-5.0); Bilirubin,Total 0.2 mg/dl (0.2-1.0); Calcium 8.5 mg/dl (8.6-10.3); Creatinine Clr Calc Pharmacy 184.8 ml/min; Est GFR (African American) 141.2 ml/min; Est GFR (Non-African American) 121.9 ml/min; Globulin 3.3 gm/dl (2.5-4.0); Magnesium 1.8 mg/dl (1.7-2.4); Phosphorus 3.4 mg/dl (2.5-4.9); Potassium 4.1 mmol/L (3.5-5.1)
[2023-03-24] MEDS: ENOXAPARIN INJ 60 MG/0.6 ML SYR SQ SCH ×2 (05:42→17:54)
[2023-03-24 05:44] LABS: Basophils # (auto) 0.03 K/uL (0.00-0.20); Basophils % (auto) 0.4 %; Eosinophils # (auto) 0.22 K/uL (0.00-0.50); Eosinophils % (auto) 2.6 %; Hematocrit (blood only) 31.9 % (42.0-52.0); Hemoglobin 9.5 g/dl (14.0-18.0); Immature Granulocytes # (auto) 0.04 K/uL (0.01-0.20); Immature Granulocytes % (auto) 0.5 %; Lymphocytes # (auto) 1.82 K/uL (1.20-3.40); Lymphocytes % (auto) 21.5 %; Mean Corpuscular Hemoglobin 22.4 pg (25.0-34.0); Mean Corpuscular Hgb Conc 29.8 g/dL (32.0-36.0); Mean Corpuscular Volume 75.1 fL (80.0-100.0); Mean Platelet Volume 10.5 fL (9.4-12.4); Monocytes # (auto) 0.47 K/uL (0.11-0.59); Monocytes % (auto) 5.5 %; Neutrophils % (auto) 69.5 %; Platelet Count 470 K/uL (130-400); RDW Coefficient of Variation 20.3 % (11.5-14.5); RDW Standard Deviation 53.1 fL (36.4-46.3); Red Blood Count 4.25 M/uL (4.70-6.10); White Blood Count 8.48 K/ul (4.8-10.8)
[2023-03-24 06:24] LABS: Anisocytosis Present; Ovalocytes 1+; Polychromasia 1+
[2023-03-24] MEDS: FERROUS SULFATE 325 MG/7.4 ML UDP PO SCH (07:18)
[2023-03-24] MEDS: TAMSULOSIN HCL 0.4 MG CAP PEG SCH (07:18)
[2023-03-24] MEDS: MULTI VIT W/MINERALS LIQUID 15 ML UDP PEG SCH (07:18)
[2023-03-24] MEDS: MAGNESIUM OXIDE 400 MG TAB PEG SCH ×2 (07:19→20:39)
[2023-03-24] MEDS: CLOPIDOGREL BISULFATE 75 MG TAB PEG SCH (07:19)
[2023-03-24] MEDS: AMIODARONE 200 MG TAB PEG SCH ×2 (07:19→17:53)
[2023-03-24] MEDS: METOPROLOL TARTRATE 25 MG TAB PEG SCH ×2 (07:19→20:39)
[2023-03-24] MEDS: ADVANCED PROBIOTIC 1250 MG CAPSULE PO SCH (07:20)
--- NOTE | 2023-03-24 09:00 | Hospitalist Progress Note ---
Date of Service March 24, 2023 Assessment & Plan (1) Fever: (2) Infected decubitus ulcer: (3) Splenic infarction: (4) Acute hyponatremia: (5) Hematuria: (6) Aortic stenosis: (7) Paroxysmal atrial fibrillation: (8) Peripheral arterial disease: (9) History of CVA (cerebrovascular accident): (10) BPH with obstruction/lower urinary tract symptoms: (11) Type 2 diabetes mellitus: (12) HTN (hypertension): Plan Fever Infected Decubitus ulcer Last temp 38 or greater was on 03/16 Due to infected decubitus ulcer Patient was stable for discharge awaiting placement and then developed a fever for which work up was done which showed infected sacral ulcer again. Wound culture growing MRSA sensitive to vancomycin and daptomycin. General surgery was consulted-no plans for debridement. Wound Care- was off of wound vac to allow peripheral healing, vac placed once more on 03/23. Per ID recs- DISCONTINUE antibiotics (was on daptomycin) and monitor off abx with aggressive wound care. Blood Cultures negative. Fever currently resolved- even after discontinuing abx. Acute splenic infarct Chronic renal infarcts Noted on CT Abd/pelvis: "an acute splenic infarct measuring up to 6 mm with chronic renal infarcts and cortical scarring again noted." Continue therapeutic Lovenox Previous provider discussed with surgery on 03/17/2023: No further intervention needed for acute splenic infarct Hyponatremia Hypomagnesia replete as needed Currently resolved. Hematuria Trent hematuria noted in the facility Likely secondary to trauma due to Hagan catheter CT scan of the chest and pelvis did show nonspecific thickening of the bladder wall Urine culture negative Hematuria resolved Lovenox resumed without recurrence of hematuria CBC remains stable Aortic Stenosis H/O severe aortic stenosis Stable Paroxysmal Atrial Fibrillation As per prior provider On the night of December 07 ; patient converted to atrial fibrillation with rapid ventricular response. He was startedamiodarone drip as per cardiology recommendation Converted back to sinus rhythm on December 08 after 5 hours. Repeat echocardiogram was done; found to have moderately reduced EF of 35 to 40% with severe Rate remains controlled without any cardiac symptoms -- Continue amiodarone, metoprolol On therapeutic dose of Lovenox SQ for anticoagulation Hx of CVA History of recurrent CVA despite DAPT and anticoagulation therapy Chronic right hemiplegia/left arm paralysis/mostly nonverbal/expressive aphasia/dysphagia with PEG tube Continue statin, Plavix/Lovenox BPH/LUTS Hagan in place Continue tamsulosin. DMII A1c of 6.9 on 09/26. Continue Lantus, sliding scale insulin. Adjust as indicated HTN BP overall stable. Continue metoprolol. Resume lisinopril if BP remains high. Right heel wound Wound culture showed Corynebacterium species Completed antibiotics on 03/06/2023 as per the ID recommendation. Continue wound care Diet: has PEG DVT prophylaxis: Therapeutic anticoagulation with Lovenox Disposition-pt medically stable, bed search per Admission and Anticipated Discharge Date Admission Date: March 02, 2023 Subjective Pt seen during the day, at bedside. Stated that he was stable, no acute concerns. Plan discussed with at bedside. No acute events overnight, has been fever free since discontinuing the abx per nursing. Review of Systems Review of Systems: Unobtainable due to cognitive status Physical Exam Physical Exam: General: moaning Psych: could not be determined Neuro: difficulty with movements HEENT: NC/AT Chest: Nontender to palpation. CV: RRR, blowing murmur Resp: no increased effort of breathing Abdomen: Soft Results & Data Results & Data Vital Signs (Past 12 Hours) Vital Signs Temp Pulse Pulse Resp BP Pulse Ox O2 Del Method 03/24/23 07:51 36.7 C 75 20 119/71 96 Room Air 03/24/23 07:47 Room Air 03/24/23 07:22 36.8 C 74 20 116/56 L 96 Room Air 03/24/23 02:18 37.2 C 67 18 109/71 92 Room Air 03/24/23 00:00 63 03/23/23 22:42 37.2 C 68 18 136/77 97 Room Air
[2023-03-24] MEDS: INSULIN ASPART PER UNIT CHARGE SC SCH ×4 (09:13→20:40)
[2023-03-24] MEDS: LANTUS PER UNIT CHARGE SC SCH ×2 (09:14→20:38)
[2023-03-24] MEDS: CHOLESTYRAMINE LIGHT 4 GM PKT PO SCH ×2 (09:14→20:38)
[2023-03-24] MEDS: TAMSULOSIN HCL 0.4 MG CAP PO SCH (20:39)
[2023-03-24] MEDS: PEPTAMEN INTENSE VHP 1.0 CAL 1,000 ML BAG PEG SCH (20:54)
[2023-03-25] MEDS: TUBE FEEDING WATER FLUSH PEG SCH ×4 (01:43→18:10)
[2023-03-25] MEDS: ENOXAPARIN INJ 60 MG/0.6 ML SYR SQ SCH ×2 (05:34→17:52)
[2023-03-25 05:45] LABS: Albumin Globulin Ratio 0.9 (0.9-2); Albumin Level 2.8 gm/dl (3.4-5.0); BUN Creatinine Ratio 104.8 (10-20); Bilirubin,Total 0.2 mg/dl (0.2-1.0); Calcium 8.5 mg/dl (8.6-10.3); Creatinine Clr Calc Pharmacy 189.2 ml/min; Est GFR (African American) 142.6 ml/min; Globulin 3.2 gm/dl (2.5-4.0); Magnesium 1.8 mg/dl (1.7-2.4); Phosphorus 3.3 mg/dl (2.5-4.9); Potassium 4.1 mmol/L (3.5-5.1)
[2023-03-25 06:10] LABS: Anisocytosis Present; Basophils # (auto) 0.04 K/uL (0.00-0.20); Basophils % (auto) 0.5 %; Eosinophils % (auto) 2.3 %; Hematocrit (blood only) 33.4 % (42.0-52.0); Hemoglobin 9.6 g/dl (14.0-18.0); Hypochromasia Present; Immature Granulocytes # (auto) 0.04 K/uL (0.01-0.20); Immature Granulocytes % (auto) 0.5 %; Lymphocytes % (auto) 19.9 %; Mean Corpuscular Hemoglobin 21.8 pg (25.0-34.0); Mean Corpuscular Hgb Conc 28.7 g/dL (32.0-36.0); Mean Corpuscular Volume 75.7 fL (80.0-100.0); Mean Platelet Volume 10.9 fL (9.4-12.4); Monocytes % (auto) 5.9 %; Neutrophils # (auto) 6.06 K/uL (1.40-6.50); Neutrophils % (auto) 70.9 %; Ovalocytes 1+; Platelet Count 503 K/uL (130-400); Polychromasia 1+; RDW Coefficient of Variation 20.5 % (11.5-14.5); Red Blood Count 4.41 M/uL (4.70-6.10); Tear Drop Cells 1+; White Blood Count 8.54 K/ul (4.8-10.8)
[2023-03-25] MEDS: MAGNESIUM OXIDE 400 MG TAB PEG SCH ×2 (08:04→20:52)
[2023-03-25] MEDS: TAMSULOSIN HCL 0.4 MG CAP PEG SCH (08:04)
[2023-03-25] MEDS: METOPROLOL TARTRATE 25 MG TAB PEG SCH ×2 (08:04→20:52)
[2023-03-25] MEDS: AMIODARONE 200 MG TAB PEG SCH ×2 (08:04→17:47)
[2023-03-25] MEDS: CLOPIDOGREL BISULFATE 75 MG TAB PEG SCH (08:05)
[2023-03-25] MEDS: ADVANCED PROBIOTIC 1250 MG CAPSULE PO SCH (08:05)
[2023-03-25] MEDS: FERROUS SULFATE 325 MG/7.4 ML UDP PO SCH (08:05)
[2023-03-25] MEDS: MULTI VIT W/MINERALS LIQUID 15 ML UDP PEG SCH (08:05)
[2023-03-25] MEDS: LANTUS PER UNIT CHARGE SC SCH ×2 (09:11→22:05)
[2023-03-25] MEDS: INSULIN ASPART PER UNIT CHARGE SC SCH ×4 (09:11→20:40)
[2023-03-25] MEDS: CHOLESTYRAMINE LIGHT 4 GM PKT PO SCH ×2 (11:38→20:52)
--- NOTE | 2023-03-25 13:17 | Hospitalist Progress Note ---
Date of Service March 25, 2023 Assessment & Plan (1) Fever: (2) Infected decubitus ulcer: (3) Splenic infarction: (4) Acute hyponatremia: (5) Hematuria: (6) Aortic stenosis: (7) Paroxysmal atrial fibrillation: (8) Peripheral arterial disease: (9) History of CVA (cerebrovascular accident): (10) BPH with obstruction/lower urinary tract symptoms: (11) Type 2 diabetes mellitus: (12) HTN (hypertension): Plan Fever Infected Decubitus ulcer Last temp 38 or greater was on 03/16 Due to infected decubitus ulcer Patient was stable for discharge awaiting placement and then developed a fever for which work up was done which showed infected sacral ulcer again. Wound culture growing MRSA sensitive to vancomycin and daptomycin. General surgery was consulted-no plans for debridement. Wound Care- was off of wound vac to allow peripheral healing, vac placed once more on 03/23. Per ID recs- DISCONTINUE antibiotics (was on daptomycin) and monitor off abx with aggressive wound care. Blood Cultures negative. Fever currently resolved- even after discontinuing abx. Pulmonary Edema Pleural Effusions Pt sounding more wet than usual Chest XRAY ordered- noted progressing pulmonary edema, pleural effusions No increased oxygen need at this time Ordered IV Lasix 40mg Continue suctioning as able Continue to monitor Acute splenic infarct Chronic renal infarcts Noted on CT Abd/pelvis: "an acute splenic infarct measuring up to 6 mm with chronic renal infarcts and cortical scarring again noted." Continue therapeutic Lovenox Previous provider discussed with surgery on 03/17/2023: No further intervention needed for acute splenic infarct Hyponatremia Hypomagnesia replete as needed Currently resolved. Hematuria Trent hematuria noted in the facility Likely secondary to trauma due to Hagan catheter CT scan of the chest and pelvis did show nonspecific thickening of the bladder wall Urine culture negative Hematuria resolved Lovenox resumed without recurrence of hematuria CBC remains stable Aortic Stenosis H/O severe aortic stenosis Stable Paroxysmal Atrial Fibrillation As per prior provider On the night of December 07 ; patient converted to atrial fibrillation with rapid ventricular response. He was startedamiodarone drip as per cardiology recommendation Converted back to sinus rhythm on December 08 after 5 hours. Repeat echocardiogram was done; found to have moderately reduced EF of 35 to 40% with severe Rate remains controlled without any cardiac symptoms -- Continue amiodarone, metoprolol On therapeutic dose of Lovenox SQ for anticoagulation Hx of CVA History of recurrent CVA despite DAPT and anticoagulation therapy Chronic right hemiplegia/left arm paralysis/mostly nonverbal/expressive aphasia/dysphagia with PEG tube Continue statin, Plavix/Lovenox BPH/LUTS Hagan in place Continue tamsulosin. DMII A1c of 6.9 on 09/26. Continue Lantus, sliding scale insulin. Adjust as indicated HTN BP overall stable. Continue metoprolol. Resume lisinopril if BP remains high. Right heel wound Wound culture showed Corynebacterium species Completed antibiotics on 03/06/2023 as per the ID recommendation. Continue wound care Diet: has PEG DVT prophylaxis: Therapeutic anticoagulation with Lovenox Disposition-pt medically stable, bed search per CM Admission and Anticipated Discharge Date Admission Date: March 02, 2023 Subjective Pt seen at bedside with present. No changes from day prior. Later notified that pt was having more chest congestion that was unable to be suctioned. Review of Systems Review of Systems: Unobtainable due to cognitive status Physical Exam Physical Exam: General: moaning Psych: could not be determined Neuro: difficulty with movements HEENT: NC/AT Chest: Nontender to palpation. CV: RRR, blowing murmur Resp: no increased effort of breathing Abdomen: Soft, but pt moans whenever it is touched Results & Data Results & Data Vital Signs (Past 12 Hours) Vital Signs Temp Pulse Resp BP Pulse Ox O2 Del Method 03/25/23 11:42 37.1 C 83 20 122/73 91 Room Air 03/25/23 08:13 36.8 C 75 20 126/71 93 Room Air 03/25/23 04:16 37.0 C 72 22 130/72 96 Room Air
--- NOTE | 2023-03-25 16:54 | XRay Report ---
XR chest 1V portable HISTORY: 62 years-old Male Chest congestion acute cough COMPARISON: 03/17/2023 TECHNIQUE: AP view of the chest FINDINGS: Cardiac silhouette is enlarged. Prior median sternotomy with CABG. Pulmonary edema has progressed fro m prior. No pneumothorax. Small pleural effusions with mild bibasilar opacities. Degenerative changes of the shoulders and spine. IMPRESSION: 1. Cardiomegaly with pulmonary edema. 2. Small pleural effusions with mild bibasilar opacities. ACT 112: Negative or not required by law. The above report was generated using voice recognition software. It may contain grammatical, syntax o r spelling errors. Electronically signed by: Abdon Gr M.D. 03/25/2023 4:53 PM
[2023-03-25] MEDS ORDERED: FUROSEMIDE 40 MG/4 ML VIAL IV ONE (17:41)
[2023-03-25] MEDS: ACETAMINOPHEN SUSP 325 MG/10.15 ML UDC PO PRN (20:51)
[2023-03-25] MEDS: TAMSULOSIN HCL 0.4 MG CAP PO SCH (20:52)
[2023-03-25] MEDS: PEPTAMEN INTENSE VHP 1.0 CAL 1,000 ML BAG PEG SCH (22:05)
[2023-03-26] MEDS: TUBE FEEDING WATER FLUSH PEG SCH ×4 (00:35→19:47)
[2023-03-26 05:30] LABS: Basophils # (auto) 0.05 K/uL (0.00-0.20); Basophils % (auto) 0.5 %; Eosinophils # (auto) 0.22 K/uL (0.00-0.50); Eosinophils % (auto) 2.4 %; Hematocrit (blood only) 31.6 % (42.0-52.0); Hemoglobin 9.4 g/dl (14.0-18.0); Immature Granulocytes # (auto) 0.05 K/uL (0.01-0.20); Immature Granulocytes % (auto) 0.5 %; Lymphocytes # (auto) 1.66 K/uL (1.20-3.40); Lymphocytes % (auto) 17.9 %; Mean Corpuscular Hemoglobin 22.1 pg (25.0-34.0); Mean Corpuscular Hgb Conc 29.7 g/dL (32.0-36.0); Mean Corpuscular Volume 74.2 fL (80.0-100.0); Mean Platelet Volume 10.4 fL (9.4-12.4); Monocytes # (auto) 0.54 K/uL (0.11-0.59); Monocytes % (auto) 5.8 %; Neutrophils # (auto) 6.75 K/uL (1.40-6.50); Neutrophils % (auto) 72.9 %; Platelet Count 484 K/uL (130-400); RDW Coefficient of Variation 20.7 % (11.5-14.5); RDW Standard Deviation 52.5 fL (36.4-46.3); Red Blood Count 4.26 M/uL (4.70-6.10); White Blood Count 9.27 K/ul (4.8-10.8)
[2023-03-26] MEDS: ENOXAPARIN INJ 60 MG/0.6 ML SYR SQ SCH ×2 (05:37→17:10)
[2023-03-26 05:45] LABS: Albumin Globulin Ratio 0.9 (0.9-2); Albumin Level 2.8 gm/dl (3.4-5.0); BUN Creatinine Ratio 106.8 (10-20); Bilirubin,Total 0.2 mg/dl (0.2-1.0); Calcium 8.4 mg/dl (8.6-10.3); Creatinine Clr Calc Pharmacy 180.6 ml/min; Est GFR (African American) 139.9 ml/min; Est GFR (Non-African American) 120.7 ml/min; Magnesium 1.8 mg/dl (1.7-2.4); Phosphorus 3.3 mg/dl (2.5-4.9); Potassium 3.9 mmol/L (3.5-5.1); Total Protein 5.8 gm/dl (6.0-8.3)
[2023-03-26 05:58] LABS: Anisocytosis Present; Ovalocytes 1+; Polychromasia 2+
[2023-03-26] MEDS: AMIODARONE 200 MG TAB PEG SCH ×2 (08:36→17:10)
[2023-03-26] MEDS: FERROUS SULFATE 325 MG/7.4 ML UDP PO SCH (08:36)
[2023-03-26] MEDS: MAGNESIUM OXIDE 400 MG TAB PEG SCH ×2 (08:36→19:49)
[2023-03-26] MEDS: ADVANCED PROBIOTIC 1250 MG CAPSULE PO SCH (08:36)
[2023-03-26] MEDS: METOPROLOL TARTRATE 25 MG TAB PEG SCH ×2 (08:36→19:48)
[2023-03-26] MEDS: MULTI VIT W/MINERALS LIQUID 15 ML UDP PEG SCH (08:36)
[2023-03-26] MEDS: TAMSULOSIN HCL 0.4 MG CAP PEG SCH (08:36)
[2023-03-26] MEDS: CLOPIDOGREL BISULFATE 75 MG TAB PEG SCH (08:36)
[2023-03-26] MEDS: LANTUS PER UNIT CHARGE SC SCH ×2 (09:43→21:44)
[2023-03-26] MEDS: INSULIN ASPART PER UNIT CHARGE SC SCH ×4 (09:43→20:10)
--- NOTE | 2023-03-26 10:15 | Hospitalist Progress Note ---
Date of Service March 26, 2023 Assessment & Plan (1) Fever: (2) Infected decubitus ulcer: (3) Splenic infarction: (4) Acute hyponatremia: (5) Hematuria: (6) Aortic stenosis: (7) Paroxysmal atrial fibrillation: (8) Peripheral arterial disease: (9) History of CVA (cerebrovascular accident): (10) BPH with obstruction/lower urinary tract symptoms: (11) Type 2 diabetes mellitus: (12) HTN (hypertension): Plan Fever Infected Decubitus ulcer Last temp 38 or greater was on 03/16 Due to infected decubitus ulcer Patient was stable for discharge awaiting placement and then developed a fever for which work up was done which showed infected sacral ulcer again. Wound culture growing MRSA sensitive to vancomycin and daptomycin. General surgery was consulted-no plans for debridement. Wound Care- was off of wound vac to allow peripheral healing, vac placed once more on 03/23. Per ID recs- DISCONTINUE antibiotics (was on daptomycin) and monitor off abx with aggressive wound care. Blood Cultures negative. Fever currently resolved- even after discontinuing abx. Pulmonary Edema Pleural Effusions Pt sounding more wet than usual Chest XRAY ordered- noted progressing pulmonary edema, pleural effusions No increased oxygen need at this time Ordered IV Lasix 40mg Continue suctioning as able Continue to monitor Acute splenic infarct Chronic renal infarcts Noted on CT Abd/pelvis: "an acute splenic infarct measuring up to 6 mm with chronic renal infarcts and cortical scarring again noted." Continue therapeutic Lovenox Previous provider discussed with surgery on 03/17/2023: No further intervention needed for acute splenic infarct Hyponatremia Hypomagnesia replete as needed Currently resolved. Hematuria Trent hematuria noted in the facility Likely secondary to trauma due to Hagan catheter CT scan of the chest and pelvis did show nonspecific thickening of the bladder wall Urine culture negative Hematuria resolved Lovenox resumed without recurrence of hematuria CBC remains stable Aortic Stenosis H/O severe aortic stenosis Stable Paroxysmal Atrial Fibrillation As per prior provider On the night of December 07 ; patient converted to atrial fibrillation with rapid ventricular response. He was startedamiodarone drip as per cardiology recommendation Converted back to sinus rhythm on December 08 after 5 hours. Repeat echocardiogram was done; found to have moderately reduced EF of 35 to 40% with severe Rate remains controlled without any cardiac symptoms -- Continue amiodarone, metoprolol On therapeutic dose of Lovenox SQ for anticoagulation Hx of CVA History of recurrent CVA despite DAPT and anticoagulation therapy Chronic right hemiplegia/left arm paralysis/mostly nonverbal/expressive aphasia/dysphagia with PEG tube Continue statin, Plavix/Lovenox BPH/LUTS Hagan in place Continue tamsulosin. DMII A1c of 6.9 on 09/26. Continue Lantus, sliding scale insulin. Adjust as indicated HTN BP overall stable. Continue metoprolol. Resume lisinopril if BP remains high. Right heel wound Wound culture showed Corynebacterium species Completed antibiotics on 03/06/2023 as per the ID recommendation. Continue wound care Diet: has PEG DVT prophylaxis: Therapeutic anticoagulation with Lovenox Disposition-pt medically stable, bed search per CM Admission and Anticipated Discharge Date Admission Date: March 02, 2023 Subjective Pt seen at bedside with present. Had received IV Lasix the day prior and per nursing put out about 300ml urine feels like chest congestion was better. Review of Systems Review of Systems: Unobtainable due to cognitive status Physical Exam Physical Exam: General: moaning Psych: could not be determined Neuro: difficulty with movements HEENT: NC/AT Chest: Nontender to palpation. CV: RRR, blowing murmur Resp: no increased effort of breathing Abdomen: Soft, but pt moans whenever it is touched Results & Data Results & Data Vital Signs (Past 12 Hours) Vital Signs Temp Pulse Pulse Resp BP Pulse Ox O2 Del Method 03/26/23 09:08 66 03/26/23 07:41 36.9 C 70 20 133/77 97 Room Air 03/26/23 07:41 Room Air 03/26/23 03:59 36.7 C 67 22 122/76 95 Room Air 03/25/23 22:58 Room Air
[2023-03-26] MEDS: CHOLESTYRAMINE LIGHT 4 GM PKT PO SCH ×2 (10:48→21:44)
[2023-03-26] MEDS: TRIMETHOPRIM/POLYMYXIN B OP SCH ×3 (13:20→19:49)
[2023-03-26] MEDS: ACETAMINOPHEN SUSP 325 MG/10.15 ML UDC PO PRN (19:48)
[2023-03-26] MEDS: PEPTAMEN INTENSE VHP 1.0 CAL 1,000 ML BAG PEG SCH (19:48)
[2023-03-26] MEDS: TAMSULOSIN HCL 0.4 MG CAP PO SCH (19:49)
[2023-03-27] MEDS: TUBE FEEDING WATER FLUSH PEG SCH ×4 (00:10→20:15)
[2023-03-27 04:59] LABS: Albumin Globulin Ratio 0.9 (0.9-2); Albumin Level 2.8 gm/dl (3.4-5.0); BUN Creatinine Ratio 111.9 (10-20); Bilirubin,Total 0.3 mg/dl (0.2-1.0); Calcium 8.6 mg/dl (8.6-10.3); Creatinine Clr Calc Pharmacy 189.2 ml/min; Est GFR (African American) 142.6 ml/min; Globulin 3.2 gm/dl (2.5-4.0); Magnesium 1.8 mg/dl (1.7-2.4); Phosphorus 3.4 mg/dl (2.5-4.9); Potassium 4.1 mmol/L (3.5-5.1)
[2023-03-27 05:13] LABS: Basophils # (auto) 0.03 K/uL (0.00-0.20); Basophils % (auto) 0.3 %; Eosinophils # (auto) 0.17 K/uL (0.00-0.50); Eosinophils % (auto) 1.7 %; Hematocrit (blood only) 32.9 % (42.0-52.0); Hemoglobin 9.6 g/dl (14.0-18.0); Immature Granulocytes # (auto) 0.03 K/uL (0.01-0.20); Immature Granulocytes % (auto) 0.3 %; Lymphocytes # (auto) 1.54 K/uL (1.20-3.40); Lymphocytes % (auto) 15.3 %; Mean Corpuscular Hgb Conc 29.2 g/dL (32.0-36.0); Mean Corpuscular Volume 75.5 fL (80.0-100.0); Mean Platelet Volume 10.7 fL (9.4-12.4); Monocytes # (auto) 0.74 K/uL (0.11-0.59); Monocytes % (auto) 7.4 %; Neutrophils # (auto) 7.55 K/uL (1.40-6.50); Platelet Count 468 K/uL (130-400); RDW Coefficient of Variation 20.4 % (11.5-14.5); RDW Standard Deviation 53.4 fL (36.4-46.3); Red Blood Count 4.36 M/uL (4.70-6.10); White Blood Count 10.06 K/ul (4.8-10.8)
[2023-03-27] MEDS: ENOXAPARIN INJ 60 MG/0.6 ML SYR SQ SCH ×2 (05:32→17:02)
[2023-03-27 06:22] LABS: Anisocytosis Present; Ovalocytes 2+; Polychromasia 1+
[2023-03-27] MEDS: METOPROLOL TARTRATE 25 MG TAB PEG SCH ×2 (08:16→20:16)
[2023-03-27] MEDS: ADVANCED PROBIOTIC 1250 MG CAPSULE PO SCH (08:16)
[2023-03-27] MEDS: FERROUS SULFATE 325 MG/7.4 ML UDP PO SCH (08:16)
[2023-03-27] MEDS: MAGNESIUM OXIDE 400 MG TAB PEG SCH ×2 (08:16→20:16)
[2023-03-27] MEDS: CLOPIDOGREL BISULFATE 75 MG TAB PEG SCH (08:16)
[2023-03-27] MEDS: AMIODARONE 200 MG TAB PEG SCH ×2 (08:16→17:03)
[2023-03-27] MEDS: TAMSULOSIN HCL 0.4 MG CAP PEG SCH (08:17)
[2023-03-27] MEDS: MULTI VIT W/MINERALS LIQUID 15 ML UDP PEG SCH (08:17)
[2023-03-27] MEDS: TRIMETHOPRIM/POLYMYXIN B OP SCH ×4 (08:25→20:16)
[2023-03-27] MEDS: INSULIN ASPART PER UNIT CHARGE SC SCH ×4 (09:15→20:16)
[2023-03-27] MEDS: LANTUS PER UNIT CHARGE SC SCH ×2 (09:15→20:33)
[2023-03-27] MEDS: CHOLESTYRAMINE LIGHT 4 GM PKT PO SCH ×2 (09:59→21:28)
--- NOTE | 2023-03-27 19:23 | Hospitalist Progress Note ---
Date of Service March 27, 2023 Assessment & Plan (1) Fever: (2) Infected decubitus ulcer: (3) Splenic infarction: (4) Acute hyponatremia: (5) Hematuria: (6) Aortic stenosis: (7) Paroxysmal atrial fibrillation: (8) Peripheral arterial disease: (9) History of CVA (cerebrovascular accident): (10) BPH with obstruction/lower urinary tract symptoms: (11) Type 2 diabetes mellitus: (12) HTN (hypertension): Plan Fever Infected Decubitus ulcer Last temp 38 or greater was on 03/16 Due to infected decubitus ulcer Patient was stable for discharge awaiting placement and then developed a fever for which work up was done which showed infected sacral ulcer again. Wound culture growing MRSA sensitive to vancomycin and daptomycin. General surgery was consulted-no plans for debridement. Wound Care- was off of wound vac to allow peripheral healing, vac placed once more on 03/23. Per ID recs- DISCONTINUE antibiotics (was on daptomycin) and monitor off abx with aggressive wound care. Blood Cultures negative. Fever currently resolved- even after discontinuing abx. Pulmonary Edema Pleural Effusions Pt sounding more wet than usual Chest XRAY ordered- noted progressing pulmonary edema, pleural effusions No increased oxygen need at this time Ordered IV Lasix 40mg Continue suctioning as able Continue to monitor Acute splenic infarct Chronic renal infarcts Noted on CT Abd/pelvis: "an acute splenic infarct measuring up to 6 mm with chronic renal infarcts and cortical scarring again noted." Continue therapeutic Lovenox Previous provider discussed with surgery on 03/17/2023: No further intervention needed for acute splenic infarct Hyponatremia Hypomagnesia replete as needed Currently resolved. Hematuria Trent hematuria noted in the facility Likely secondary to trauma due to Hagan catheter CT scan of the chest and pelvis did show nonspecific thickening of the bladder wall Urine culture negative Hematuria resolved Lovenox resumed without recurrence of hematuria CBC remains stable Aortic Stenosis H/O severe aortic stenosis Stable Paroxysmal Atrial Fibrillation As per prior provider On the night of December 07 ; patient converted to atrial fibrillation with rapid ventricular response. He was startedamiodarone drip as per cardiology recommendation Converted back to sinus rhythm on December 08 after 5 hours. Repeat echocardiogram was done; found to have moderately reduced EF of 35 to 40% with severe Rate remains controlled without any cardiac symptoms -- Continue amiodarone, metoprolol On therapeutic dose of Lovenox SQ for anticoagulation Hx of CVA History of recurrent CVA despite DAPT and anticoagulation therapy Chronic right hemiplegia/left arm paralysis/mostly nonverbal/expressive aphasia/dysphagia with PEG tube Continue statin, Plavix/Lovenox BPH/LUTS Hagan in place Continue tamsulosin. DMII A1c of 6.9 on 09/26. Continue Lantus, sliding scale insulin. Adjust as indicated HTN BP overall stable. Continue metoprolol. Resume lisinopril if BP remains high. Right heel wound Wound culture showed Corynebacterium species Completed antibiotics on 03/06/2023 as per the ID recommendation. Continue wound care Diet: has PEG DVT prophylaxis: Therapeutic anticoagulation with Lovenox Disposition-pt medically stable, bed search per CM Admission and Anticipated Discharge Date Admission Date: March 02, 2023 Subjective Pt seen at bedside. not present. Review of Systems Review of Systems: Unobtainable due to cognitive status Physical Exam Physical Exam: General: moaning Psych: could not be determined Neuro: difficulty with movements HEENT: NC/AT Chest: Nontender to palpation. CV: RRR, blowing murmur Resp: no increased effort of breathing Abdomen: Soft, but pt moans whenever it is touched Results & Data Results & Data Vital Signs (Past 12 Hours) Vital Signs Temp Pulse Pulse Resp BP Pulse Ox O2 Del Method 03/27/23 15:42 76 03/27/23 15:11 37.7 C H 80 20 119/72 93 Room Air 03/27/23 14:56 36.4 C L 67 18 136/71 99 Nasal Cannula 03/27/23 11:17 37.0 C 70 20 124/78 92 Room Air 03/27/23 08:43 72 03/27/23 07:39 Room Air 03/27/23 07:39 36.6 C 83 20 126/79 92 Room Air O2 Flow Rate 03/27/23 15:42 03/27/23 15:11 03/27/23 14:56 3 03/27/23 11:17 03/27/23 08:43 03/27/23 07:39 03/27/23 07:39
[2023-03-27] MEDS: ACETAMINOPHEN SUSP 325 MG/10.15 ML UDC PO PRN (20:15)
[2023-03-27] MEDS: PEPTAMEN INTENSE VHP 1.0 CAL 1,000 ML BAG PEG SCH (20:15)
[2023-03-27] MEDS: TAMSULOSIN HCL 0.4 MG CAP PO SCH (20:16)
[2023-03-28] MEDS: TUBE FEEDING WATER FLUSH PEG SCH ×4 (01:03→16:59)
[2023-03-28] MEDS: ENOXAPARIN INJ 60 MG/0.6 ML SYR SQ SCH ×2 (05:03→16:58)
[2023-03-28 05:39] LABS: Creatinine Clr Calc Pharmacy 162.2 ml/min; Est GFR (African American) 133.8 ml/min; Est GFR (Non-African American) 115.5 ml/min
[2023-03-28] MEDS: MULTI VIT W/MINERALS LIQUID 15 ML UDP PEG SCH (07:24)
[2023-03-28] MEDS: CHOLESTYRAMINE LIGHT 4 GM PKT PO SCH ×2 (07:24→21:29)
[2023-03-28] MEDS: TRIMETHOPRIM/POLYMYXIN B OP SCH ×4 (07:25→19:42)
[2023-03-28] MEDS: CLOPIDOGREL BISULFATE 75 MG TAB PEG SCH (07:25)
[2023-03-28] MEDS: ADVANCED PROBIOTIC 1250 MG CAPSULE PO SCH (07:25)
[2023-03-28] MEDS: FERROUS SULFATE 325 MG/7.4 ML UDP PO SCH (07:25)
[2023-03-28] MEDS: METOPROLOL TARTRATE 25 MG TAB PEG SCH ×2 (07:25→19:40)
[2023-03-28] MEDS: TAMSULOSIN HCL 0.4 MG CAP PEG SCH (07:25)
[2023-03-28] MEDS: MAGNESIUM OXIDE 400 MG TAB PEG SCH ×2 (07:25→19:43)
[2023-03-28] MEDS: AMIODARONE 200 MG TAB PEG SCH ×2 (07:25→16:58)
[2023-03-28] MEDS: INSULIN ASPART PER UNIT CHARGE SC SCH ×4 (09:05→21:06)
[2023-03-28] MEDS: LANTUS PER UNIT CHARGE SC SCH ×2 (09:06→21:29)
[2023-03-28 09:15] LABS: Basophils # (auto) 0.03 K/uL (0.00-0.20); Basophils % (auto) 0.3 %; Eosinophils % (auto) 1.1 %; Hematocrit (blood only) 31.8 % (42.0-52.0); Hemoglobin 9.3 g/dl (14.0-18.0); Immature Granulocytes # (auto) 0.03 K/uL (0.01-0.20); Immature Granulocytes % (auto) 0.3 %; Lymphocytes # (auto) 1.23 K/uL (1.20-3.40); Lymphocytes % (auto) 13.1 %; Mean Corpuscular Hemoglobin 22.1 pg (25.0-34.0); Mean Corpuscular Hgb Conc 29.2 g/dL (32.0-36.0); Mean Corpuscular Volume 75.7 fL (80.0-100.0); Mean Platelet Volume 10.8 fL (9.4-12.4); Monocytes # (auto) 0.67 K/uL (0.11-0.59); Monocytes % (auto) 7.2 %; Platelet Count 440 K/uL (130-400); RDW Coefficient of Variation 20.5 % (11.5-14.5); RDW Standard Deviation 54.3 fL (36.4-46.3); White Blood Count 9.36 K/ul (4.8-10.8)
[2023-03-28 09:32] LABS: Albumin Globulin Ratio 0.9 (0.9-2); Albumin Level 2.8 gm/dl (3.4-5.0); Bilirubin,Total 0.3 mg/dl (0.2-1.0); Calcium 8.5 mg/dl (8.6-10.3); Creatinine Clr Calc Pharmacy 184.8 ml/min; Est GFR (African American) 141.2 ml/min; Est GFR (Non-African American) 121.9 ml/min; Globulin 3.2 gm/dl (2.5-4.0); Magnesium 1.8 mg/dl (1.7-2.4); Phosphorus 2.9 mg/dl (2.5-4.9); Potassium 4.1 mmol/L (3.5-5.1)
[2023-03-28 09:34] LABS: Anisocytosis Present; Ovalocytes 1+; Poikilocytosis Present; Polychromasia 1+; Tear Drop Cells 1+
[2023-03-28] MEDS: ACETAMINOPHEN SUSP 325 MG/10.15 ML UDC PO PRN (16:56)
--- NOTE | 2023-03-28 16:59 | Hospitalist Progress Note ---
Date of Service March 28, 2023 Assessment & Plan (1) Fever: (2) Infected decubitus ulcer: (3) Splenic infarction: (4) Acute hyponatremia: (5) Hematuria: (6) Aortic stenosis: (7) Paroxysmal atrial fibrillation: (8) Peripheral arterial disease: (9) History of CVA (cerebrovascular accident): (10) BPH with obstruction/lower urinary tract symptoms: (11) Type 2 diabetes mellitus: (12) HTN (hypertension): Plan Fever Infected Decubitus ulcer Fever on 03/16 due to infected decubitus ulcer Patient was stable for discharge awaiting placement and then developed a fever for which work up was done which showed infected sacral ulcer again. Wound culture growing MRSA sensitive to vancomycin and daptomycin. General surgery was consulted-no plans for debridement. Wound Care- was off of wound vac to allow peripheral healing, vac placed once more on 03/23. Per ID recs- DISCONTINUE antibiotics (was on daptomycin) and monitor off abx with aggressive wound care. Blood Cultures negative. Fever was currently resolved but had one elevated temp on 03/27. None further, wbc currently wnl. Will continue to monitor before resuming abx. Pulmonary Edema Pleural Effusions Pt was sounding more wet than usual at one point Chest XRAY ordered- noted progressing pulmonary edema, pleural effusions No increased oxygen need at this time, currently on RA Ordered IV Lasix 40mg Continue suctioning as able Continue to monitor Acute splenic infarct Chronic renal infarcts Noted on CT Abd/pelvis: "an acute splenic infarct measuring up to 6 mm with chronic renal infarcts and cortical scarring again noted." Continue therapeutic Lovenox Previous provider discussed with surgery on 03/17/2023: No further intervention needed for acute splenic infarct Hyponatremia Hypomagnesia replete as needed Currently resolved. Hematuria Trent hematuria noted in the facility Likely secondary to trauma due to Hagan catheter CT scan of the chest and pelvis did show nonspecific thickening of the bladder wall Urine culture negative Hematuria resolved Lovenox resumed without recurrence of hematuria CBC remains stable Aortic Stenosis H/O severe aortic stenosis Stable Paroxysmal Atrial Fibrillation As per prior provider On the night of December 07 ; patient converted to atrial fibrillation with rapid ventricular response. He was startedamiodarone drip as per cardiology recommendation Converted back to sinus rhythm on December 08 after 5 hours. Repeat echocardiogram was done; found to have moderately reduced EF of 35 to 40% with severe Rate remains controlled without any cardiac symptoms -- Continue amiodarone, metoprolol On therapeutic dose of Lovenox SQ for anticoagulation Hx of CVA History of recurrent CVA despite DAPT and anticoagulation therapy Chronic right hemiplegia/left arm paralysis/mostly nonverbal/expressive aphasia/dysphagia with PEG tube Continue statin, Plavix/Lovenox BPH/LUTS Hagan in place Continue tamsulosin. DMII A1c of 6.9 on 09/26. Continue Lantus, sliding scale insulin. Adjust as indicated HTN BP overall stable. Continue metoprolol. Resume lisinopril if BP remains high. Right heel wound Wound culture showed Corynebacterium species Completed antibiotics on 03/06/2023 as per the ID recommendation. Continue wound care Diet: has PEG DVT prophylaxis: Therapeutic anticoagulation with Lovenox Disposition-pt medically stable, bed search per CM Admission and Anticipated Discharge Date Admission Date: March 02, 2023 Subjective Pt seen with at bedside. Had fever overnight. Otherwise feels like he is stable. Wound had just been by and had addressed his wounds. tearful. Review of Systems Review of Systems: All systems reviewed & are unremarkable except as noted in Subjective Physical Exam Physical Exam: General: moaning Psych: could not be determined Neuro: difficulty with movements HEENT: NC/AT Chest: Nontender to palpation. CV: RRR, blowing murmur Resp: no increased effort of breathing, breath sounds clear Abdomen: Soft, but pt moans whenever it is touched Results & Data Results & Data Vital Signs (Past 12 Hours) Vital Signs Temp Pulse Pulse Resp BP BP Pulse Ox 03/28/23 16:00 03/28/23 15:46 36.8 C 86 18 129/75 97 03/28/23 15:00 86 03/28/23 11:49 37.6 C H 79 18 106/59 L 91 03/28/23 08:45 03/28/23 08:30 36.9 C 77 18 132/76 94 O2 Del Method 03/28/23 16:00 Room Air 03/28/23 15:46 Room Air 03/28/23 15:00 03/28/23 11:49 Room Air 03/28/23 08:45 Room Air 03/28/23 08:30 Room Air
[2023-03-28] MEDS: PEPTAMEN INTENSE VHP 1.0 CAL 1,000 ML BAG PEG SCH (19:41)
[2023-03-28] MEDS: TAMSULOSIN HCL 0.4 MG CAP PO SCH (19:42)
[2023-03-29] MEDS: TUBE FEEDING WATER FLUSH PEG SCH ×4 (00:27→21:40)
[2023-03-29 04:55] LABS: Basophils # (auto) 0.04 K/uL (0.00-0.20); Basophils % (auto) 0.4 %; Eosinophils # (auto) 0.17 K/uL (0.00-0.50); Eosinophils % (auto) 1.7 %; Hemoglobin 9.1 g/dl (14.0-18.0); Immature Granulocytes # (auto) 0.05 K/uL (0.01-0.20); Immature Granulocytes % (auto) 0.5 %; Lymphocytes # (auto) 1.52 K/uL (1.20-3.40); Lymphocytes % (auto) 15.6 %; Mean Corpuscular Hemoglobin 22.1 pg (25.0-34.0); Mean Corpuscular Hgb Conc 29.4 g/dL (32.0-36.0); Mean Corpuscular Volume 75.4 fL (80.0-100.0); Mean Platelet Volume 10.1 fL (9.4-12.4); Monocytes # (auto) 0.65 K/uL (0.11-0.59); Monocytes % (auto) 6.7 %; Neutrophils % (auto) 75.1 %; Platelet Count 430 K/uL (130-400); RDW Coefficient of Variation 20.3 % (11.5-14.5); RDW Standard Deviation 53.5 fL (36.4-46.3); Red Blood Count 4.11 M/uL (4.70-6.10); White Blood Count 9.73 K/ul (4.8-10.8)
[2023-03-29 05:06] LABS: Albumin Globulin Ratio 0.8 (0.9-2); Albumin Level 2.7 gm/dl (3.4-5.0); BUN Creatinine Ratio 95.7 (10-20); Bilirubin,Total 0.2 mg/dl (0.2-1.0); Calcium 8.6 mg/dl (8.6-10.3); Creatinine Clr Calc Pharmacy 172.8 ml/min; Est GFR (African American) 137.4 ml/min; Est GFR (Non-African American) 118.5 ml/min; Globulin 3.2 gm/dl (2.5-4.0); Magnesium 1.7 mg/dl (1.7-2.4); Phosphorus 2.9 mg/dl (2.5-4.9); Potassium 4.2 mmol/L (3.5-5.1); Total Protein 5.9 gm/dl (6.0-8.3)
[2023-03-29 05:17] LABS: Anisocytosis Present; Ovalocytes 1+; Polychromasia 1+
[2023-03-29] MEDS: ENOXAPARIN INJ 60 MG/0.6 ML SYR SQ SCH ×2 (05:37→18:38)
[2023-03-29] MEDS: MULTI VIT W/MINERALS LIQUID 15 ML UDP PEG SCH (07:40)
[2023-03-29] MEDS: MAGNESIUM OXIDE 400 MG TAB PEG SCH ×2 (07:40→21:43)
[2023-03-29] MEDS: METOPROLOL TARTRATE 25 MG TAB PEG SCH ×2 (07:40→21:43)
[2023-03-29] MEDS: CLOPIDOGREL BISULFATE 75 MG TAB PEG SCH (07:41)
[2023-03-29] MEDS: AMIODARONE 200 MG TAB PEG SCH ×2 (07:41→16:36)
[2023-03-29] MEDS: TRIMETHOPRIM/POLYMYXIN B OP SCH ×4 (07:42→21:44)
[2023-03-29] MEDS: TAMSULOSIN HCL 0.4 MG CAP PEG SCH (07:42)
[2023-03-29] MEDS: ADVANCED PROBIOTIC 1250 MG CAPSULE PO SCH (07:42)
[2023-03-29] MEDS: FERROUS SULFATE 325 MG/7.4 ML UDP PO SCH (07:42)
[2023-03-29] MEDS: LANTUS PER UNIT CHARGE SC SCH ×2 (09:50→21:41)
[2023-03-29] MEDS: INSULIN ASPART PER UNIT CHARGE SC SCH ×4 (09:50→21:39)
[2023-03-29] MEDS: CHOLESTYRAMINE LIGHT 4 GM PKT PO SCH ×2 (09:50→21:42)
[2023-03-29] MEDS ORDERED: FUROSEMIDE 40 MG/4 ML VIAL IV ONE (15:30)
--- NOTE | 2023-03-29 16:53 | Hospitalist Progress Note ---
Date of Service March 29, 2023 Assessment & Plan (1) Fever: (2) Infected decubitus ulcer: (3) Splenic infarction: (4) Acute hyponatremia: (5) Hematuria: (6) Aortic stenosis: (7) Paroxysmal atrial fibrillation: (8) Peripheral arterial disease: (9) History of CVA (cerebrovascular accident): (10) BPH with obstruction/lower urinary tract symptoms: (11) Type 2 diabetes mellitus: (12) HTN (hypertension): Plan Fever Infected Decubitus ulcer Fever on 03/16 due to infected decubitus ulcer Patient was stable for discharge awaiting placement and then developed a fever for which work up was done which showed infected sacral ulcer again. Wound culture growing MRSA sensitive to vancomycin and daptomycin. General surgery was consulted-no plans for debridement. Wound Care- was off of wound vac to allow peripheral healing, vac placed once more on 03/23. Appreciate wound care recs Per ID recs- DISCONTINUE antibiotics (was on daptomycin) and monitor off abx with aggressive wound care. Blood Cultures negative. Fever was currently resolved but had one elevated temp on 03/27. None further, wbc currently wnl. Will continue to monitor before resuming abx. Bed search currently in place for placement. Pulmonary Edema Pleural Effusions Pt occasionally sounds more wet than usual Chest XRAY ordered 03/25- noted progressing pulmonary edema, pleural effusions No increased oxygen need at this time, currently on RA IV Lasix 40mg as needed, last ordered on 03/29 Continue suctioning as able Continue to monitor Eye discharge recurrent eye discharge, especially in left eye Polytrim eye drops for Rx Acute splenic infarct Chronic renal infarcts Noted on CT Abd/pelvis: "an acute splenic infarct measuring up to 6 mm with chronic renal infarcts and cortical scarring again noted." Continue therapeutic Lovenox Previous provider discussed with surgery on 03/17/2023: No further intervention needed for acute splenic infarct Hyponatremia Hypomagnesia replete as needed Currently resolved. Hematuria Trent hematuria noted in the facility Likely secondary to trauma due to Hagan catheter CT scan of the chest and pelvis did show nonspecific thickening of the bladder wall Urine culture negative Hematuria resolved Lovenox resumed without recurrence of hematuria CBC remains stable Aortic Stenosis H/O severe aortic stenosis Stable Paroxysmal Atrial Fibrillation As per prior provider On the night of December 07 ; patient converted to atrial fibrillation with rapid ventricular response. He was startedamiodarone drip as per cardiology recommendation Converted back to sinus rhythm on December 08 after 5 hours. Repeat echocardiogram was done; found to have moderately reduced EF of 35 to 40% with severe Rate remains controlled without any cardiac symptoms -- Continue amiodarone, metoprolol On therapeutic dose of Lovenox SQ for anticoagulation Hx of CVA History of recurrent CVA despite DAPT and anticoagulation therapy Chronic right hemiplegia/left arm paralysis/mostly nonverbal/expressive aphasia/dysphagia with PEG tube Continue statin, Plavix/Lovenox BPH/LUTS Hagan in place Continue tamsulosin. DMII A1c of 6.9 on 09/26. Continue Lantus, sliding scale insulin. Adjust as indicated HTN BP overall stable. Continue metoprolol. Resume lisinopril if BP remains high. Right heel wound Wound culture showed Corynebacterium species Completed antibiotics on 03/06/2023 as per the ID recommendation. Continue wound care Diet: has PEG DVT prophylaxis: Therapeutic anticoagulation with Lovenox Disposition-pt medically stable, bed search per Admission and Anticipated Discharge Date Admission Date: March 02, 2023 Subjective Pt seen with at bedside. No further fevers. Otherwise feels like he is stable. Review of Systems Review of Systems: Unobtainable due to cognitive status Physical Exam Physical Exam: General: moaning Psych: could not be determined Neuro: difficulty with movements HEENT: NC/AT Chest: Nontender to palpation. CV: RRR, blowing murmur Resp: no increased effort of breathing, breath sounds clear Abdomen: Soft, but pt moans whenever it is touched Results & Data Results & Data Vital Signs (Past 12 Hours) Vital Signs Temp Pulse Pulse Resp BP Pulse Ox O2 Del Method 03/29/23 16:50 37.1 C 87 18 144/90 H 94 Room Air 03/29/23 11:47 36.5 C 75 18 142/88 H 98 Room Air 03/29/23 07:38 36.8 C 79 24 123/76 95 Room Air 03/29/23 07:25 83
[2023-03-29] MEDS: PEPTAMEN INTENSE VHP 1.0 CAL 1,000 ML BAG PEG SCH (21:40)
[2023-03-29] MEDS: ACETAMINOPHEN SUSP 325 MG/10.15 ML UDC PO PRN (21:41)
[2023-03-29] MEDS: TAMSULOSIN HCL 0.4 MG CAP PO SCH (21:43)
[2023-03-30] MEDS: TUBE FEEDING WATER FLUSH PEG SCH ×4 (01:00→20:43)
[2023-03-30] MEDS: ENOXAPARIN INJ 60 MG/0.6 ML SYR SQ SCH ×2 (05:17→17:59)
[2023-03-30 05:35] LABS: Albumin Globulin Ratio 0.8 (0.9-2); Albumin Level 2.7 gm/dl (3.4-5.0); BUN Creatinine Ratio 107.1 (10-20); Bilirubin,Total 0.2 mg/dl (0.2-1.0); Calcium 8.5 mg/dl (8.6-10.3); Creatinine Clr Calc Pharmacy 189.2 ml/min; Est GFR (African American) 142.6 ml/min; Globulin 3.2 gm/dl (2.5-4.0); Magnesium 1.7 mg/dl (1.7-2.4); Phosphorus 3.1 mg/dl (2.5-4.9); Potassium 3.8 mmol/L (3.5-5.1); Total Protein 5.9 gm/dl (6.0-8.3)
[2023-03-30 05:50] LABS: Basophils # (auto) 0.04 K/uL (0.00-0.20); Basophils % (auto) 0.4 %; Eosinophils # (auto) 0.18 K/uL (0.00-0.50); Hematocrit (blood only) 31.1 % (42.0-52.0); Hemoglobin 9.3 g/dl (14.0-18.0); Immature Granulocytes # (auto) 0.04 K/uL (0.01-0.20); Immature Granulocytes % (auto) 0.4 %; Lymphocytes # (auto) 1.25 K/uL (1.20-3.40); Lymphocytes % (auto) 13.5 %; Mean Corpuscular Hemoglobin 22.4 pg (25.0-34.0); Mean Corpuscular Hgb Conc 29.9 g/dL (32.0-36.0); Mean Corpuscular Volume 74.8 fL (80.0-100.0); Mean Platelet Volume 11.2 fL (9.4-12.4); Monocytes # (auto) 0.77 K/uL (0.11-0.59); Monocytes % (auto) 8.3 %; Neutrophils # (auto) 6.95 K/uL (1.40-6.50); Neutrophils % (auto) 75.4 %; Platelet Count 381 K/uL (130-400); RDW Coefficient of Variation 20.5 % (11.5-14.5); RDW Standard Deviation 53.7 fL (36.4-46.3); Red Blood Count 4.16 M/uL (4.70-6.10); White Blood Count 9.23 K/ul (4.8-10.8)
[2023-03-30 06:44] LABS: Anisocytosis Present; Ovalocytes 1+; Polychromasia 1+
[2023-03-30] MEDS: AMIODARONE 200 MG TAB PEG SCH ×2 (07:29→17:59)
[2023-03-30] MEDS: TAMSULOSIN HCL 0.4 MG CAP PEG SCH (07:30)
[2023-03-30] MEDS: MAGNESIUM OXIDE 400 MG TAB PEG SCH ×2 (07:30→20:52)
[2023-03-30] MEDS: METOPROLOL TARTRATE 25 MG TAB PEG SCH ×2 (07:30→20:52)
[2023-03-30] MEDS: CLOPIDOGREL BISULFATE 75 MG TAB PEG SCH (07:30)
[2023-03-30] MEDS: MULTI VIT W/MINERALS LIQUID 15 ML UDP PEG SCH (07:30)
[2023-03-30] MEDS: TRIMETHOPRIM/POLYMYXIN B OP SCH ×4 (07:31→20:53)
[2023-03-30] MEDS: ADVANCED PROBIOTIC 1250 MG CAPSULE PO SCH (07:31)
[2023-03-30] MEDS: LANTUS PER UNIT CHARGE SC SCH ×2 (09:34→20:44)
[2023-03-30] MEDS: FERROUS SULFATE 325 MG/7.4 ML UDP PO SCH (09:35)
[2023-03-30] MEDS: INSULIN ASPART PER UNIT CHARGE SC SCH ×4 (09:35→20:44)
[2023-03-30] MEDS: CHOLESTYRAMINE LIGHT 4 GM PKT PO SCH ×2 (09:37→20:45)
--- NOTE | 2023-03-30 15:13 | Hospitalist Progress Note ---
Date of Service March 30, 2023 Assessment & Plan (1) Fever: (2) Infected decubitus ulcer: (3) Splenic infarction: (4) Acute hyponatremia: (5) Hematuria: (6) Aortic stenosis: (7) Paroxysmal atrial fibrillation: (8) Peripheral arterial disease: (9) History of CVA (cerebrovascular accident): (10) BPH with obstruction/lower urinary tract symptoms: (11) Type 2 diabetes mellitus: (12) HTN (hypertension): Plan Mr. Turner is a 62 year old gentleman with complicated medical history notable for recurrent stroke c/b right hemiplegia and various other deficiencies reported below, paroxysmal atrial fibrillation, chronic paroxsymal atrial fibrillation, aortic stenosis, severe CAD s/p multiple PCI and CABG, DMTII, chronic decubitus ulcer c/b infection who is admitted due to fever and recurrent infection. Patient stable from all accounts and does not have telemetry requirements at this time; however, expresses severe concern and worry given patient's history. Discussion had with Cardiology who feels patient is otherwise stable from a cardiac standpoint and would be stable to transition from telemetry unit. Plan to disucss transition with with thoughtful approach to help ease movement. #Fever *resolved #Decubitus ulcer c/b infection Fever on 03/16 due to infected decubitus ulcer Patient was stable for discharge awaiting placement and then developed a fever for which work up was done which showed infected sacral ulcer again. Wound culture growing MRSA sensitive to vancomycin and daptomycin. General surgery was consulted-no plans for debridement. Wound Care- was off of wound vac to allow peripheral healing, vac placed once more on 03/23. Appreciate wound care recs Per ID recs- DISCONTINUE antibiotics (was on daptomycin) and monitor off abx with aggressive wound care. Blood Cultures negative. Fever was currently resolved but had one elevated temp on 03/27. None further, wbc currently wnl. Will continue to monitor before resuming abx. Bed search currently in place for placement. #Pulmonary Edema #Pleural Effusions Pt occasionally sounds more wet than usual Chest XRAY ordered 03/25- noted progressing pulmonary edema, pleural effusions No increased oxygen need at this time, currently on RA IV Lasix 40mg as needed, last ordered on 03/29 Continue suctioning as able Continue to monitor Chest Percussion therapy #Eye discharge recurrent eye discharge, especially in left eye Polytrim eye drops for Rx #Acute splenic infarct #Chronic renal infarcts Noted on CT Abd/pelvis: "an acute splenic infarct measuring up to 6 mm with chronic renal infarcts and cortical scarring again noted." Continue therapeutic Lovenox Previous provider discussed with surgery on 03/17/2023: No further intervention needed for acute splenic infarct #Hyponatremia #Hypomagnesia replete as needed Currently resolved. #Hematuria [place] hematuria noted in the facility Likely secondary to trauma due to Hagan catheter CT scan of the chest and pelvis did show nonspecific thickening of the bladder wall Urine culture negative Hematuria resolved Lovenox resumed without recurrence of hematuria CBC remains stable #Aortic Stenosis H/O severe aortic stenosis Stable #Paroxysmal Atrial Fibrillation As per prior provider On the night of December 07 ; patient converted to atrial fibrillation with rapid ventricular response. He was startedamiodarone drip as per cardiology recommendation Converted back to sinus rhythm on December 08 after 5 hours. Repeat echocardiogram was done; found to have moderately reduced EF of 35 to 40% with severe Rate remains controlled without any cardiac symptoms -- Continue amiodarone, metoprolol On therapeutic dose of Lovenox SQ for anticoagulation #Hx of CVA History of recurrent CVA despite DAPT and anticoagulation therapy Chronic right hemiplegia/left arm paralysis/mostly nonverbal/expressive aphasia/dysphagia with PEG tube Continue statin, Plavix/Lovenox #BPH/LUTS Hagan in place Continue tamsulosin. #DMII A1c of 6.9 on 09/26. Continue Lantus, sliding scale insulin. Adjust as indicated #HTN BP overall stable. Continue metoprolol. Resume lisinopril if BP remains high. #Right heel wound Wound culture showed Corynebacterium species Completed antibiotics on 03/06/2023 as per the ID recommendation. Continue wound care Diet: has PEG DVT prophylaxis: Therapeutic anticoagulation with Lovenox Disposition-pt medically stable, bed search per Admission and Anticipated Discharge Date Admission Date: March 02, 2023 Subjective NAEO Long discussion with at bedside; discussed no active signs of infection at this time apprehensive to take off of telemetry given history Review of Systems Review of Systems: Unobtainable due to cognitive status Physical Exam Constitutional: WD/WN, vitals as above vocalizes to verbal stimuli, calms with verbal prompting Respiratory: occasional rhonchi Cardiovascular: RRR, no murmur, no edema Results & Data Results & Data Vital Signs (Past 12 Hours) Vital Signs Temp Pulse Pulse Resp BP Pulse Ox O2 Del Method 03/30/23 15:08 37.5 C 90 20 136/81 95 Room Air 03/30/23 11:35 37.1 C 81 18 132/84 95 Room Air 03/30/23 10:52 77 03/30/23 07:32 36.8 C 78 18 129/82 95 Room Air Laboratory Results Short CBC 03/30/23 Range/Units 04:47 WBC 9.23 (4.8-10.8) K/ul Hgb 9.3 L (14.0-18.0) g/dl Hct 31.1 L (42.0-52.0) % Plt Count 381 (130-400) K/uL BMP 03/30/23 04:47 Sodium 137 Potassium 3.8 Chloride 106 Carbon Dioxide 28 BUN 45 H Creatinine 0.42 L Glucose 139 H Calcium 8.5 L Liver Function 03/30/23 Range/Units 04:47 Total Bilirubin 0.2 (0.2-1.0) mg/dl AST 8 L (13-39) U/L ALT 9 (7-52) U/L Alkaline Phosphatase 138 H (34-104) U/L Albumin 2.7 L (3.4-5.0) gm/dl Medications Administered Home Medications Medication Instructions Recorded Confirmed Last Taken nitroglycerin 0.4 mg sublingual 0.4 mg sublingual DIRECTED PRN 08/09/19 03/02/23 12/17/21 08:00 tablet Chest Pain tamsulosin 0.4 mg capsule 0.4 mg PO HS 01/11/21 03/02/23 12/17/21 08:00 atorvastatin 80 mg tablet 80 mg feeding tube QPM 05/17/21 03/02/23 Unknown clopidogrel 75 mg tablet (Plavix) 75 mg feeding tube QAM 11/17/22 03/02/23 Unknown enoxaparin 120 mg/0.8 mL 70 mg subcut Q12 11/17/22 03/02/23 Unknown subcutaneous syringe ferrous sulfate 325 mg (65 mg 325 mg PO QAM 11/17/22 03/02/23 Unknown iron) tablet,delayed release lisinopril 5 mg tablet 5 mg feeding tube DAILY 11/17/22 03/02/23 Unknown Tube Feeding Water Flush 100 ml PEG Q6H 30 days 02/24/23 03/02/23 Unknown acetaminophen 325 mg/10.15 mL oral 650 mg (20.3 mL) PEG Q6H PRN fever 02/24/23 03/02/23 Unknown suspension or pain 30 days #300 mL amiodarone 200 mg tablet 200 mg PEG BIDM 30 days #60 tabs 02/24/23 03/02/23 Unknown cholestyramine-aspartame 4 gram 4 g PO BID@1000,2200 30 days #60 ea 02/24/23 03/02/23 Unknown oral powder for susp in a packet (Prevalite) insulin aspart U-100 100 unit/mL 1 unit (0.01 mL) SC BID@1130,1630 02/24/23 03/02/23 Unknown subcutaneous solution (Novolog 30 days #100 mL U-100 Insulin aspart) insulin aspart U-100 100 unit/mL 1 unit (0.01 mL) SC DAILY@0730 30 02/24/23 03/02/23 Unknown subcutaneous solution (Novo days #100 mL U-100 Insulin aspart) insulin aspart U-100 100 unit/mL 1 unit (0.01 mL) SC DAILY@2000 30 02/24/23 03/02/23 Unknown subcutaneous solution (Novolog days #100 mL U-100 Insulin aspart) magnesium oxide 400 mg (241.3 mg 400 mg PEG BID 30 days #60 tabs 02/24/23 03/02/23 Unknown magnesium) tablet metronidazole 500 mg tablet 500 mg feeding tube Q8 9 days #27 02/24/23 03/02/23 Unknown tabs miconazole nitrate 2 % topical 1 applic EXT PRN PRN fungal rash 02/24/23 03/02/23 Unknown powder (Desenex) 30 days #85 grams multivit and minerals-ferrous 15 ml PEG QAM 30 days #450 mL 02/24/23 03/02/23 Unknown gluconate 9 mg iron/15 mL oral liquid (Centrum) nystatin 100,000 unit/gram topical 1 applic EXT BID 14 days #15 grams 02/24/23 03/02/23 Unknown cream sulfamethoxazole 200 20 ml feeding tube Q12 9 days #360 02/24/23 03/02/23 Unknown mg-trimethoprim 40 mg/5 mL oral mL suspension tamsulosin 0.4 mg capsule 0.4 mg PEG QAM #30 caps 02/24/23 03/02/23 Unknown insulin glargine 100 unit/mL 16 unit SC BID@0830,199903/02/23 03/02/23 Unknown subcutaneous solution (Lantus U-100 Insulin) Active Medications Generic Name Dose Route Start Last Admin Trade Name Freq PRN Reason Stop Dose Admin Acetaminophen 650 mg 03/02/23 04:00 03/29/23 21:41 Acetaminophen Susp 325 Mg/10.15 Ml Udc PO 04/01/23 03:59 650 mg Q6H PRN Administration pain/fever Amiodarone HCl 200 mg 03/02/23 08:00 03/30/23 07:29 Amiodarone 200 Mg Tab PEG 04/01/23 07:59 200 mg BIDM SUMA Administration Atorvastatin Calcium 80 mg 03/09/23 21:00 03/11/23 20:18 Atorvastatin 40 Mg Tab PEG 04/08/23 20:59 80 mg QPM SUMA Administration Cholestyramine Resin 4 gm 03/02/23 10:00 03/30/23 09:37 Cholestyramine Light 4 Gm Pkt PO 04/01/23 09:59 4 gm BID@1000,2200 SUMA Administration Clopidogrel Bisulfate 75 mg 03/10/23 09:00 03/30/23 07:30 Clopidogrel Bisulfate 75 Mg Tab PEG 04/09/23 08:59 75 mg QAM SUMA Administration Enoxaparin Sodium 60 mg 03/03/23 16:15 03/30/23 05:17 Enoxaparin Inj 60 Mg/0.6 Ml Syr SQ 04/02/23 16:14 60 mg Q12H SUMA Administration Ferrous Sulfate 325 mg 03/05/23 11:00 03/30/23 09:35 Ferrous Sulfate 325 Mg/7.4 Ml Udp PO 04/04/23 10:59 325 mg QAM SUMA Administration Insulin Aspart 0 units 03/02/23 07:30 03/30/23 13:55 Insulin Aspart Per Unit Charge SC 04/17/23 07:29 14 units ACHS SUMA Administration Insulin Glargine 24 units 03/14/23 09:00 03/30/23 09:34 Lantus Per Unit Charge SC 04/17/23 08:59 24 units BID SUMA Administration Lactobacillus Acidophilus 2 cap 03/13/23 09:00 03/30/23 07:31 Advanced Probiotic 1250 Mg Capsule PO 04/12/23 08:59 2 cap DAILY SUMA Administration Magnesium Oxide 400 mg 03/02/23 09:00 03/30/23 07:30 Magnesium Oxide 400 Mg Tab PEG 04/01/23 08:59 400 mg BID SUMA Administration Metoprolol Tartrate 25 mg 03/09/23 21:00 03/30/23 07:30 Metoprolol Tartrate 25 Mg Tab PEG 04/08/23 20:59 25 mg BID SUMA Administration Multivitamins/Minerals 15 ml 03/02/23 09:00 03/30/23 07:30 Multi Vit W/Minerals Liquid 15 Ml Udp PEG 04/01/23 08:59 15 ml QAM SUMA Administration Nutritional Formula 1,000 ml 03/02/23 20:00 03/29/23 21:40 Peptamen Intense Vhp 1.0 Checo 1,000 Ml Bag PEG 04/01/23 19:59 1,000 ml TODAY@2000 SUMA Administration Protocol Polymyxin/Trimethoprim Sulfate 1 drops 03/26/23 13:00 03/30/23 13:56 Trimethoprim/Polymyxin B OP 04/25/23 12:59 1 drops QID SUMA Administration Sterile Water 150 ml 03/04/23 19:00 03/30/23 13:56 Tube Feeding Water Flush PEG 04/03/23 18:59 150 ml Q6H SUMA Administration Tamsulosin HCl 0.4 mg 03/02/23 21:00 03/29/23 21:43 Tamsulosin Hcl 0.4 Mg Cap PO 04/01/23 20:59 0.4 mg HS SUMA Administration Tamsulosin HCl 0.4 mg 03/02/23 09:00 03/30/23 07:30 Tamsulosin Hcl 0.4 Mg Cap PEG 04/01/23 08:59 0.4 mg QAM SUMA Administration
[2023-03-30] MEDS: PEPTAMEN INTENSE VHP 1.0 CAL 1,000 ML BAG PEG SCH (20:43)
[2023-03-30] MEDS: TAMSULOSIN HCL 0.4 MG CAP PO SCH (20:46)
[2023-03-30] MEDS: ATORVASTATIN 40 MG TAB PEG SCH (20:54)
[2023-03-31] MEDS: TUBE FEEDING WATER FLUSH PEG SCH ×4 (00:58→18:05)
[2023-03-31] MEDS: ENOXAPARIN INJ 60 MG/0.6 ML SYR SQ SCH ×2 (05:10→18:04)
[2023-03-31 06:34] LABS: Basophils # (auto) 0.03 K/uL (0.00-0.20); Basophils % (auto) 0.4 %; Eosinophils # (auto) 0.12 K/uL (0.00-0.50); Eosinophils % (auto) 1.4 %; Hematocrit (blood only) 31.8 % (42.0-52.0); Hemoglobin 9.4 g/dl (14.0-18.0); Immature Granulocytes # (auto) 0.02 K/uL (0.01-0.20); Immature Granulocytes % (auto) 0.2 %; Lymphocytes # (auto) 1.37 K/uL (1.20-3.40); Lymphocytes % (auto) 16.3 %; Mean Corpuscular Hemoglobin 22.2 pg (25.0-34.0); Mean Corpuscular Hgb Conc 29.6 g/dL (32.0-36.0); Mean Corpuscular Volume 75.2 fL (80.0-100.0); Mean Platelet Volume 10.4 fL (9.4-12.4); Monocytes # (auto) 0.65 K/uL (0.11-0.59); Monocytes % (auto) 7.7 %; Neutrophils # (auto) 6.22 K/uL (1.40-6.50); Platelet Count 393 K/uL (130-400); RDW Coefficient of Variation 20.2 % (11.5-14.5); RDW Standard Deviation 53.5 fL (36.4-46.3); Red Blood Count 4.23 M/uL (4.70-6.10); White Blood Count 8.41 K/ul (4.8-10.8)
[2023-03-31 06:54] LABS: Anisocytosis Present; Polychromasia 1+
[2023-03-31 06:55] LABS: Albumin Globulin Ratio 0.8 (0.9-2); Albumin Level 2.7 gm/dl (3.4-5.0); BUN Creatinine Ratio 107.7 (10-20); Bilirubin,Total 0.3 mg/dl (0.2-1.0); Calcium 8.4 mg/dl (8.6-10.3); Creatinine Clr Calc Pharmacy 201.1 ml/min; Globulin 3.3 gm/dl (2.5-4.0); Magnesium 1.7 mg/dl (1.7-2.4); Phosphorus 3.1 mg/dl (2.5-4.9); Potassium 4.1 mmol/L (3.5-5.1)
[2023-03-31] MEDS: CLOPIDOGREL BISULFATE 75 MG TAB PEG SCH (08:52)
[2023-03-31] MEDS: AMIODARONE 200 MG TAB PEG SCH ×2 (08:52→18:05)
[2023-03-31] MEDS: TAMSULOSIN HCL 0.4 MG CAP PEG SCH (08:52)
[2023-03-31] MEDS: TRIMETHOPRIM/POLYMYXIN B OP SCH ×4 (08:53→21:01)
[2023-03-31] MEDS: MAGNESIUM OXIDE 400 MG TAB PEG SCH ×2 (08:53→21:00)
[2023-03-31] MEDS: MULTI VIT W/MINERALS LIQUID 15 ML UDP PEG SCH (08:53)
[2023-03-31] MEDS: FERROUS SULFATE 325 MG/7.4 ML UDP PO SCH (08:53)
[2023-03-31] MEDS: METOPROLOL TARTRATE 25 MG TAB PEG SCH ×2 (08:53→20:59)
[2023-03-31] MEDS: ADVANCED PROBIOTIC 1250 MG CAPSULE PO SCH (08:53)
[2023-03-31] MEDS: INSULIN ASPART PER UNIT CHARGE SC SCH ×4 (09:29→20:58)
[2023-03-31] MEDS: LANTUS PER UNIT CHARGE SC SCH ×2 (09:30→20:58)
[2023-03-31] MEDS: CHOLESTYRAMINE LIGHT 4 GM PKT PO SCH ×2 (11:36→20:59)
--- NOTE | 2023-03-31 16:00 | Hospitalist Progress Note ---
Date of Service March 31, 2023 Assessment & Plan (1) Fever: (2) Infected decubitus ulcer: (3) Splenic infarction: (4) Acute hyponatremia: (5) Hematuria: (6) Aortic stenosis: (7) Paroxysmal atrial fibrillation: (8) Peripheral arterial disease: (9) History of CVA (cerebrovascular accident): (10) BPH with obstruction/lower urinary tract symptoms: (11) Type 2 diabetes mellitus: (12) HTN (hypertension): Plan Mr. Turner is a 62 year old gentleman with complicated medical history notable for recurrent stroke c/b right hemiplegia and various other deficiencies reported below, paroxysmal atrial fibrillation, chronic paroxsymal atrial fibrillation, aortic stenosis, severe CAD s/p multiple PCI and CABG, DMTII, chronic decubitus ulcer c/b infection who is admitted due to fever and recurrent infection. Patient stable from all accounts and does not have telemetry requirements at this time; however, expresses severe concern and worry given patient's history. Discussion had with Cardiology who feels patient is otherwise stable from a cardiac standpoint and would be stable to transition from telemetry unit. Given today is patient's birthday, plan to move off of telemetry tomorrow. #Fever *resolved #Decubitus ulcer c/b infection Fever on 03/16 due to infected decubitus ulcer Patient was stable for discharge awaiting placement and then developed a fever for which work up was done which showed infected sacral ulcer again. Wound culture growing MRSA sensitive to vancomycin and daptomycin. General surgery was consulted-no plans for debridement. Wound Care- was off of wound vac to allow peripheral healing, vac placed once more on 03/23. Appreciate wound care recs Blood Cultures negative. No fevers >24 hours Bed search currently in place for placement. #Pulmonary Edema *improved #Pleural Effusions *improved Pt occasionally sounds more wet than usual Chest XRAY ordered 03/25- noted progressing pulmonary edema, pleural effusions No increased oxygen need at this time, currently on RA IV Lasix 40mg as needed, last ordered on 03/29 Continue suctioning as able Continue to monitor Chest Percussion therapy #Eye discharge recurrent eye discharge, especially in left eye Polytrim eye drops for Rx #Acute splenic infarct #Chronic renal infarcts Noted on CT Abd/pelvis: "an acute splenic infarct measuring up to 6 mm with chronic renal infarcts and cortical scarring again noted." Continue therapeutic Lovenox Previous provider discussed with surgery on 03/17/2023: No further intervention needed for acute splenic infarct #Hyponatremia #Hypomagnesia replete as needed Currently resolved. #Hematuria *resolved [place] hematuria noted in the facility Likely secondary to trauma due to Hagan catheter CT scan of the chest and pelvis did show nonspecific thickening of the bladder wall Urine culture negative Hematuria resolved Lovenox resumed without recurrence of hematuria CBC remains stable #Aortic Stenosis H/O severe aortic stenosis Stable #Paroxysmal Atrial Fibrillation As per prior provider On the night of December 07 ; patient converted to atrial fibrillation with rapid ventricular response. He was startedamiodarone drip as per cardiology recommendation Converted back to sinus rhythm on December 08 after 5 hours. Repeat echocardiogram was done; found to have moderately reduced EF of 35 to 40% with severe Rate remains controlled without any cardiac symptoms -- Continue amiodarone, metoprolol On therapeutic dose of Lovenox SQ for anticoagulation #Hx of CVA History of recurrent CVA despite DAPT and anticoagulation therapy Chronic right hemiplegia/left arm paralysis/mostly nonverbal/expressive aphasia/dysphagia with PEG tube Continue statin, Plavix/Lovenox #BPH/LUTS Hagan in place Continue tamsulosin. #DMII A1c of 6.9 on 09/26. Continue Lantus, sliding scale insulin. Adjust as indicated #HTN BP overall stable. Continue metoprolol. Resume lisinopril if BP remains high. #Right heel wound Wound culture showed Corynebacterium species Completed antibiotics on 03/06/2023 as per the ID recommendation. Continue wound care Diet: has PEG DVT prophylaxis: Therapeutic anticoagulation with Lovenox Disposition-pt medically stable, bed search per Admission and Anticipated Discharge Date Admission Date: March 02, 2023 Subjective NAEO Long discussion with at bedside; discussed no active signs of infection at this time apprehensive to take off of telemetry given history Review of Systems Review of Systems: Unobtainable due to cognitive status Physical Exam Constitutional: WD/WN, vitals as above Respiratory: clear airway Cardiovascular: loud ULISES Gastrointestinal (Abdomen): normal bowel sounds, soft, nontender, no hepatosplenomegaly Results & Data Results & Data Vital Signs (Past 12 Hours) Vital Signs Temp Pulse Resp BP Pulse Ox O2 Del Method 03/31/23 15:30 37.5 C 86 16 132/75 96 Room Air 03/31/23 12:19 Room Air 03/31/23 11:39 37.0 C 74 18 130/75 94 Room Air 03/31/23 09:08 37.0 C 76 18 131/86 95 Room Air
[2023-03-31] MEDS: PEPTAMEN INTENSE VHP 1.0 CAL 1,000 ML BAG PEG SCH (20:58)
[2023-03-31] MEDS: ATORVASTATIN 40 MG TAB PEG SCH (21:00)
[2023-03-31] MEDS: TAMSULOSIN HCL 0.4 MG CAP PO SCH (21:01)
[2023-04-01] MEDS: TUBE FEEDING WATER FLUSH PEG SCH ×4 (03:34→22:22)
[2023-04-01] MEDS: ENOXAPARIN INJ 60 MG/0.6 ML SYR SQ SCH ×2 (05:24→21:40)
[2023-04-01] MEDS: TRIMETHOPRIM/POLYMYXIN B OP SCH ×4 (07:58→21:44)
[2023-04-01] MEDS: ADVANCED PROBIOTIC 1250 MG CAPSULE PO SCH (07:58)
[2023-04-01] MEDS: FERROUS SULFATE 325 MG/7.4 ML UDP PO SCH (07:58)
[2023-04-01] MEDS: CLOPIDOGREL BISULFATE 75 MG TAB PEG SCH (07:58)
[2023-04-01] MEDS: METOPROLOL TARTRATE 25 MG TAB PEG SCH ×2 (07:59→21:43)
[2023-04-01 08:09] LABS: Hematocrit (blood only) 32.9 % (42.0-52.0); Hemoglobin 9.5 g/dl (14.0-18.0); Mean Corpuscular Hemoglobin 21.9 pg (25.0-34.0); Mean Corpuscular Hgb Conc 28.9 g/dL (32.0-36.0); Mean Corpuscular Volume 75.8 fL (80.0-100.0); Mean Platelet Volume 10.6 fL (9.4-12.4); Platelet Count 399 K/uL (130-400); RDW Coefficient of Variation 20.2 % (11.5-14.5); RDW Standard Deviation 53.1 fL (36.4-46.3); Red Blood Count 4.34 M/uL (4.70-6.10); White Blood Count 8.95 K/ul (4.8-10.8)
[2023-04-01 08:23] LABS: BUN Creatinine Ratio 104.9 (10-20); Calcium 8.6 mg/dl (8.6-10.3); Creatinine Clr Calc Pharmacy 191.3 ml/min; Est GFR (Non-African American) 123.4 ml/min; Magnesium 1.8 mg/dl (1.7-2.4); Phosphorus 3.2 mg/dl (2.5-4.9); Potassium 4.4 mmol/L (3.5-5.1)
[2023-04-01] MEDS: INSULIN ASPART PER UNIT CHARGE SC SCH ×4 (09:14→21:42)
[2023-04-01] MEDS: LANTUS PER UNIT CHARGE SC SCH ×2 (09:15→22:23)
--- NOTE | 2023-04-01 15:05 | Hospitalist Progress Note ---
Date of Service April 01, 2023 Assessment & Plan (1) Fever: (2) Infected decubitus ulcer: (3) Splenic infarction: (4) Acute hyponatremia: (5) Hematuria: (6) Aortic stenosis: (7) Paroxysmal atrial fibrillation: (8) Peripheral arterial disease: (9) History of CVA (cerebrovascular accident): (10) BPH with obstruction/lower urinary tract symptoms: (11) Type 2 diabetes mellitus: (12) HTN (hypertension): Plan Mr. Turner is a 62 year old gentleman with complicated medical history notable for recurrent stroke c/b right hemiplegia and various other deficiencies reported below, paroxysmal atrial fibrillation, chronic paroxsymal atrial fibrillation, aortic stenosis, severe CAD s/p multiple PCI and CABG, DMTII, chronic decubitus ulcer c/b infection who is admitted due to fever and recurrent infection. Patient stable from all accounts and does not have telemetry requirements at this time; however, expresses severe concern and worry given patient's history. Discussion had with Cardiology who feels patient is otherwise stable from a cardiac standpoint and would be stable to transition from telemetry unit. Given today is patient's birthday, plan to move off of telemetry tomorrow. #Fever *resolved #Decubitus ulcer c/b infection Fever on 03/16 due to infected decubitus ulcer Patient was stable for discharge awaiting placement and then developed a fever for which work up was done which showed infected sacral ulcer again. Wound culture growing MRSA sensitive to vancomycin and daptomycin. General surgery was consulted-no plans for debridement. Wound Care- was off of wound vac to allow peripheral healing, vac placed once more on 03/23. Appreciate wound care recs Blood Cultures negative. No fevers >48 hours Bed search currently in place for placement. #Pulmonary Edema *improved #Pleural Effusions *improved Pt occasionally sounds more wet than usual Chest XRAY ordered 03/25- noted progressing pulmonary edema, pleural effusions No increased oxygen need at this time, currently on RA IV Lasix 40mg as needed, last ordered on 03/29 Continue suctioning as able Continue to monitor Chest Percussion therapy #Eye discharge recurrent eye discharge, especially in left eye Polytrim eye drops for Rx #Acute splenic infarct #Chronic renal infarcts Noted on CT Abd/pelvis: "an acute splenic infarct measuring up to 6 mm with chronic renal infarcts and cortical scarring again noted." Continue therapeutic Lovenox Previous provider discussed with surgery on 03/17/2023: No further intervention needed for acute splenic infarct #Hyponatremia #Hypomagnesia replete as needed Currently resolved. #Hematuria *resolved Trent hematuria noted in the facility Likely secondary to trauma due to Hagan catheter CT scan of the chest and pelvis did show nonspecific thickening of the bladder wall Urine culture negative Hematuria resolved Lovenox resumed without recurrence of hematuria CBC remains stable #Aortic Stenosis H/O severe aortic stenosis Stable #Paroxysmal Atrial Fibrillation As per prior provider On the night of December 07 ; patient converted to atrial fibrillation with rapid ventricular response. He was startedamiodarone drip as per cardiology recommendation Converted back to sinus rhythm on December 08 after 5 hours. Repeat echocardiogram was done; found to have moderately reduced EF of 35 to 40% with severe Rate remains controlled without any cardiac symptoms -- Continue amiodarone, metoprolol On therapeutic dose of Lovenox SQ for anticoagulation #Hx of CVA History of recurrent CVA despite DAPT and anticoagulation therapy Chronic right hemiplegia/left arm paralysis/mostly nonverbal/expressive aphasia/dysphagia with PEG tube Continue statin, Plavix/Lovenox #BPH/LUTS Hagan in place Continue tamsulosin. #DMII A1c of 6.9 on 09/26. Continue Lantus, sliding scale insulin. Adjust as indicated #HTN BP overall stable. Continue metoprolol. Resume lisinopril if BP remains high. #Right heel wound Wound culture showed Corynebacterium species Completed antibiotics on 03/06/2023 as per the ID recommendation. Continue wound care Diet: has PEG DVT prophylaxis: Therapeutic anticoagulation with Lovenox Disposition-pt medically stable, bed search per Admission and Anticipated Discharge Date Admission Date: March 02, 2023 Subjective NAEO Long discussion with at bedside, discussing long history of patient; discussed no active signs of infection at this time apprehensive to take off of telemetry given history, however, will agree to spacing out lab draws Review of Systems Review of Systems: Unobtainable due to cognitive status Physical Exam Constitutional: WD/WN, vitals as above Respiratory: normal respiratory effort, lungs clear to auscultation Cardiovascular: RRR, no murmur, no edema Gastrointestinal (Abdomen): normal bowel sounds, soft, nontender, no hepatosplenomegaly Results & Data Results & Data Vital Signs (Past 12 Hours) Vital Signs Temp Pulse Pulse Resp BP Pulse Ox O2 Del Method 04/01/23 11:18 37.5 C 76 16 110/63 93 Room Air 04/01/23 08:29 80 04/01/23 08:29 Room Air 04/01/23 07:40 37.0 C 79 18 131/75 95 Room Air 04/01/23 04:28 37 C 80 18 128/80 96 Room Air Laboratory Results Short CBC 04/01/23 Range/Units 07:27 WBC 8.95 (4.8-10.8) K/ul Hgb 9.5 L (14.0-18.0) g/dl Hct 32.9 L (42.0-52.0) % Plt Count 399 (130-400) K/uL BMP 04/01/23 07:27 Sodium 140 Potassium 4.4 Chloride 108 H Carbon Dioxide 27 BUN 43 H Creatinine 0.41 L Glucose 152 H Calcium 8.6 Medications Administered Home Medications Medication Instructions Recorded Confirmed Last Taken nitroglycerin 0.4 mg sublingual 0.4 mg sublingual DIRECTED PRN 08/09/19 03/02/23 12/17/21 08:00 tablet Chest Pain tamsulosin 0.4 mg capsule 0.4 mg PO HS 01/11/21 03/02/23 12/17/21 08:00 atorvastatin 80 mg tablet 80 mg feeding tube QPM 05/17/21 03/02/23 Unknown clopidogrel 75 mg tablet (Plavix) 75 mg feeding tube QAM 11/17/22 03/02/23 Unknown enoxaparin 120 mg/0.8 mL 70 mg subcut Q12 11/17/22 03/02/23 Unknown subcutaneous syringe ferrous sulfate 325 mg (65 mg 325 mg PO QAM 11/17/22 03/02/23 Unknown iron) tablet,delayed release lisinopril 5 mg tablet 5 mg feeding tube DAILY 11/17/22 03/02/23 Unknown Tube Feeding Water Flush 100 ml PEG Q6H 30 days 02/24/23 03/02/23 Unknown acetaminophen 325 mg/10.15 mL oral 650 mg (20.3 mL) PEG Q6H PRN fever 02/24/23 03/02/23 Unknown suspension or pain 30 days #300 mL amiodarone 200 mg tablet 200 mg PEG BIDM 30 days #60 tabs 02/24/23 03/02/23 Unknown cholestyramine-aspartame 4 gram 4 g PO BID@1000,2200 30 days #60 ea 02/24/23 03/02/23 Unknown oral powder for susp in a packet (Prevalite) insulin aspart U-100 100 unit/mL 1 unit (0.01 mL) SC BID@1130,1630 02/24/23 03/02/23 Unknown subcutaneous solution (Novolog 30 days #100 mL U-100 Insulin aspart) insulin aspart U-100 100 unit/mL 1 unit (0.01 mL) SC DAILY@0730 30 02/24/23 Unknown subcutaneous solution (Novolog days #100 mL U-100 Insulin aspart) insulin aspart U-100 100 unit/mL 1 unit (0.01 mL) SC DAILY@199902/24/23 03/02/23 Unknown subcutaneous solution (Novolog days #100 mL U-100 Insulin aspart) magnesium oxide 400 mg (241.3 mg 400 mg PEG BID 30 days #60 tabs 02/24/23 03/02/23 Unknown magnesium) tablet metronidazole 500 mg tablet 500 mg feeding tube Q8 9 days #27 02/24/23 03/02/23 Unknown tabs miconazole nitrate 2 % topical 1 applic EXT PRN PRN fungal rash 02/24/23 03/02/23 Unknown powder (Desenex) 30 days #85 grams multivit and minerals-ferrous 15 ml PEG QAM 30 days #450 mL 02/24/23 03/02/23 Unknown gluconate 9 mg iron/15 mL oral liquid (Centrum) nystatin 100,000 unit/gram topical 1 applic EXT BID 14 days #15 grams 02/24/23 03/02/23 Unknown cream sulfamethoxazole 200 20 ml feeding tube Q12 9 days #360 02/24/23 03/02/23 Unknown mg-trimethoprim 40 mg/5 mL oral mL suspension tamsulosin 0.4 mg capsule 0.4 mg PEG QAM #30 caps 02/24/23 03/02/23 Unknown insulin glargine 100 unit/mL 16 unit SC BID@0830,199903/02/23 03/02/23 Unknown subcutaneous solution (Lantus U-100 Insulin) Active Medications Generic Name Dose Route Start Last Admin Trade Name Freq PRN Reason Stop Dose Admin Atorvastatin Calcium 80 mg 03/09/23 21:00 03/31/23 21:00 Atorvastatin 40 Mg Tab PEG 04/08/23 20:59 80 mg QPM SUMA Administration Clopidogrel Bisulfate 75 mg 03/10/23 09:00 04/01/23 07:58 Clopidogrel Bisulfate 75 Mg Tab PEG 04/09/23 08:59 75 mg QAM SUMA Administration Enoxaparin Sodium 60 mg 03/03/23 16:15 04/01/23 05:24 Enoxaparin Inj 60 Mg/0.6 Ml Syr SQ 04/02/23 16:14 60 mg Q12H SUMA Administration Ferrous Sulfate 325 mg 03/05/23 11:00 04/01/23 07:58 Ferrous Sulfate 325 Mg/7.4 Ml Udp PO 04/04/23 10:59 325 mg QAM SUMA Administration Insulin Aspart 0 units 03/02/23 07:30 04/01/23 13:31 Insulin Aspart Per Unit Charge SC 04/17/23 07:29 15 units ACHS SUMA Administration Insulin Glargine 24 units 03/14/23 09:00 04/01/23 09:15 Lantus Per Unit Charge SC 04/17/23 08:59 24 units BID SUMA Administration Lactobacillus Acidophilus 2 cap 03/13/23 09:00 04/01/23 07:58 Advanced Probiotic 1250 Mg Capsule PO 04/12/23 08:59 2 cap DAILY SUMA Administration Metoprolol Tartrate 25 mg 03/09/23 21:00 04/01/23 07:59 Metoprolol Tartrate 25 Mg Tab PEG 04/08/23 20:59 25 mg BID SUMA Administration Nutritional Formula 1,000 ml 03/02/23 20:00 03/31/23 20:58 Peptamen Intense Vhp 1.0 [place] 1,000 Ml Bag PEG 04/01/23 19:59 1,000 ml TODAY@2000 SUMA Administration Protocol Polymyxin/Trimethoprim Sulfate 1 drops 03/26/23 13:00 04/01/23 14:34 Trimethoprim/Polymyxin B OP 04/25/23 12:59 1 drops QID SUMA Administration Sterile Water 150 ml 03/04/23 19:00 04/01/23 14:34 Tube Feeding Water Flush PEG 04/03/23 18:59 150 ml Q6H SUMA Administration Tamsulosin HCl 0.4 mg 03/02/23 21:00 03/31/23 21:01 Tamsulosin Hcl 0.4 Mg Cap PO 04/01/23 20:59 0.4 mg HS SUMA Administration
[2023-04-01] MEDS ORDERED: ACETAMINOPHEN 1,000 MG/100 ML VIAL IV STA (15:15)
[2023-04-01] MEDS ORDERED: PIPER/TAZO 4.5g in D5W MINI-B 100 ML IV ONE (15:30)
--- NOTE | 2023-04-01 16:25 | XRay Report ---
XR chest 1V portable HISTORY: 63 years-old Male aspiration acute shortness of breath COMPARISON: 03/25/2023 TECHNIQUE: AP view of the chest FINDINGS: Cardiac silhouette is enlarged. Median sternotomy with probable CABG. Pulmonary vascular congestion w ith interstitial coarsening. Small pleural effusions with mild left basilar opacities. Degenerative c hanges of the shoulders and spine. IMPRESSION: 1. Cardiomegaly with persistent pulmonary edema. 2. Small pleural effusions with unchanged left basilar opacities. ACT 112: Negative or not required by law. The above report was generated using voice recognition software. It may contain grammatical, syntax o r spelling errors. Electronically signed by: Abdon Gr M.D. 04/01/2023 4:24 PM
[2023-04-01 16:31] LABS: Hemoglobin 9.2 g/dl (14.0-18.0); Mean Corpuscular Hemoglobin 22.2 pg (25.0-34.0); Mean Corpuscular Hgb Conc 29.7 g/dL (32.0-36.0); Mean Corpuscular Volume 74.9 fL (80.0-100.0); Platelet Count 417 K/uL (130-400); RDW Coefficient of Variation 19.9 % (11.5-14.5); RDW Standard Deviation 52.7 fL (36.4-46.3); Red Blood Count 4.14 M/uL (4.70-6.10); White Blood Count 9.95 K/ul (4.8-10.8)
[2023-04-01] MEDS ORDERED: FUROSEMIDE INJ 20 MG/2 ML VIAL IV ONE (17:20)
[2023-04-01] MEDS: ATORVASTATIN 40 MG TAB PEG SCH (21:42)
[2023-04-01] MEDS: PIPERACILLIN/TAZOBACTAM 4.5 GM in DEXTROSE 5% MINI-B 100 ML IV SCH (21:49)
[2023-04-02] MEDS: TUBE FEEDING WATER FLUSH PEG SCH ×4 (01:22→20:18)
[2023-04-02] MEDS: PIPERACILLIN/TAZOBACTAM 4.5 GM in DEXTROSE 5% MINI-B 100 ML IV SCH ×3 (05:25→20:18)
[2023-04-02] MEDS: ENOXAPARIN INJ 60 MG/0.6 ML SYR SQ SCH (05:25)
[2023-04-02] MEDS: CLOPIDOGREL BISULFATE 75 MG TAB PEG SCH (08:06)
[2023-04-02] MEDS: FERROUS SULFATE 325 MG/7.4 ML UDP PO SCH (08:06)
[2023-04-02] MEDS: ADVANCED PROBIOTIC 1250 MG CAPSULE PO SCH (08:06)
[2023-04-02] MEDS: METOPROLOL TARTRATE 25 MG TAB PEG SCH ×2 (08:07→21:13)
[2023-04-02] MEDS: TRIMETHOPRIM/POLYMYXIN B OP SCH (08:08)
[2023-04-02] MEDS: INSULIN ASPART PER UNIT CHARGE SC SCH ×4 (09:37→21:14)
[2023-04-02] MEDS: LANTUS PER UNIT CHARGE SC SCH ×2 (09:37→20:19)
[2023-04-02 09:46] LABS: Hematocrit (blood only) 31.8 % (42.0-52.0); Hemoglobin 9.4 g/dl (14.0-18.0); Mean Corpuscular Hemoglobin 22.2 pg (25.0-34.0); Mean Corpuscular Hgb Conc 29.6 g/dL (32.0-36.0); Mean Platelet Volume 10.7 fL (9.4-12.4); Platelet Count 381 K/uL (130-400); RDW Coefficient of Variation 20.1 % (11.5-14.5); RDW Standard Deviation 53.5 fL (36.4-46.3); Red Blood Count 4.24 M/uL (4.70-6.10); White Blood Count 10.84 K/ul (4.8-10.8)
[2023-04-02 10:02] LABS: Calcium 8.4 mg/dl (8.6-10.3); Est GFR (African American) 128.7 ml/min; Potassium 3.7 mmol/L (3.5-5.1)
[2023-04-02] MEDS ORDERED: AMIODARONE 200 MG TAB PEG ONE (11:39)
[2023-04-02] MEDS: ACETAMINOPHEN SUSP 325 MG/10.15 ML UDC PEG PRN ×2 (11:40→20:19)
[2023-04-02] MEDS ORDERED: FLUCONAZOLE 200 MG/100 ML BAG IV STA (11:40)
[2023-04-02 14:19] LABS: Appearance Urine Slightly Cloudy (Clear); Bilirubin Urine Negative (Negative); Blood Urine 3+ (Negative); Color Urine Yellow; Glucose Urine UA Negative (Negative); Ketones Urine Negative (Negative); Leukocyte Esterase Urine 1+ (Negative); Nitrite Urine Negative (Negative); Protein Urine 3+ (Negative); Urobilinogen Urine Negative (Negative)
[2023-04-02 14:41] LABS: RBC Urine >30 /hpf (0-4)
[2023-04-02 14:43] LABS: Bacteria Urine 1+ (Negative)
--- NOTE | 2023-04-02 16:09 | Hospitalist Progress Note ---
Date of Service April 02, 2023 Assessment & Plan (1) Fever: (2) Infected decubitus ulcer: (3) Splenic infarction: (4) Acute hyponatremia: (5) Hematuria: (6) Aortic stenosis: (7) Paroxysmal atrial fibrillation: (8) Peripheral arterial disease: (9) History of CVA (cerebrovascular accident): (10) BPH with obstruction/lower urinary tract symptoms: (11) Type 2 diabetes mellitus: (12) HTN (hypertension): Plan Mr. Turner is a 62 year old gentleman with complicated medical history notable for recurrent stroke c/b right hemiplegia and various other deficiencies reported below, paroxysmal atrial fibrillation, chronic paroxsymal atrial fibrillation, aortic stenosis, severe CAD s/p multiple PCI and CABG, DMTII, chronic decubitus ulcer c/b infection who is admitted due to fever and recurrent infection. Patient stable from all accounts and does not have telemetry requirements at this time; however, expresses severe concern and worry given patient's history. Discussion had with Cardiology who feels patient is otherwise stable from a cardiac standpoint and would be stable to transition from telemetry unit--however, declines transition. Patient now with fevers, despite 48 hours fever free. Planning infectious work up and close monitoring. #Fever #Leukocytosis #Decubitus ulcer c/b infection Fever on 03/16 due to infected decubitus ulcer, however, has remained stable until recently Patient was stable for discharge awaiting placement and then developed a fever for which work up was done which showed infected sacral ulcer again. Wound culture growing MRSA sensitive to vancomycin and daptomycin. General surgery was consulted-no plans for debridement. Wound Care- was off of wound vac to allow peripheral healing, vac placed once more on 03/23 then removed 04/01 2/2 maceration Blood Cultures negative, UA questionable Zosyn, Daptomycin 2/2 fevers Infectious work up pending #Pulmonary Edema *improved #Pleural Effusions *improved Pt occasionally sounds more wet than usual Chest XRAY ordered 03/25- noted progressing pulmonary edema, pleural effusions No increased oxygen need at this time, currently on RA IV Lasix 40mg as needed, last ordered on 04/01 Continue suctioning as able Continue to monitor Chest Percussion therapy #Eye discharge *improved recurrent eye discharge, especially in left eye Polytrim eye drops for Rx #Acute splenic infarct #Chronic renal infarcts Noted on CT Abd/pelvis: "an acute splenic infarct measuring up to 6 mm with chronic renal infarcts and cortical scarring again noted." Continue therapeutic Lovenox Previous provider discussed with surgery on 03/17/2023: No further intervention needed for acute splenic infarct #Hyponatremia #Hypomagnesia replete as needed Currently resolved. #Hematuria *resolved [place] hematuria noted in the facility Likely secondary to trauma due to Hagan catheter CT scan of the chest and pelvis did show nonspecific thickening of the bladder wall Urine culture negative Hematuria resolved Lovenox resumed without recurrence of hematuria CBC remains stable #Aortic Stenosis H/O severe aortic stenosis Stable #Paroxysmal Atrial Fibrillation As per prior provider On the night of December 07 ; patient converted to atrial fibrillation with rapid ventricular response. He was startedamiodarone drip as per cardiology recommendation Converted back to sinus rhythm on December 08 after 5 hours. Repeat echocardiogram was done; found to have moderately reduced EF of 35 to 40% with severe Rate remains controlled without any cardiac symptoms -- Continue amiodarone, metoprolol On therapeutic dose of Lovenox SQ for anticoagulation #Hx of CVA History of recurrent CVA despite DAPT and anticoagulation therapy Chronic right hemiplegia/left arm paralysis/mostly nonverbal/expressive aphasia/dysphagia with PEG tube Continue statin, Plavix/Lovenox #BPH/LUTS Hagan in place Continue tamsulosin. #DMII A1c of 6.9 on 09/26. Continue Lantus, sliding scale insulin. Adjust as indicated #HTN BP overall stable. Continue metoprolol. Resume lisinopril if BP remains high. #Right heel wound Wound culture showed Corynebacterium species Completed antibiotics on 03/06/2023 as per the ID recommendation. Continue wound care Diet: has PEG DVT prophylaxis: Therapeutic anticoagulation with Lovenox Disposition-pt medically stable, bed search per Admission and Anticipated Discharge Date Admission Date: March 02, 2023 Subjective NAEO Patient now with fevers and diaphoresis Unclear etiology at this time; pressures stable and no tachycardia at bedside, long conversation disucssing plan Review of Systems Review of Systems: Unobtainable due to cognitive status Physical Exam Constitutional: WD/WN, vitals as above Respiratory: trace crackles in periphery/bases Cardiovascular: +ULISES Musculoskeletal: no edema Skin: diaphoretic Results & Data Results & Data Vital Signs (Past 12 Hours) Vital Signs Temp Pulse Pulse Resp BP Pulse Ox O2 Del Method 04/02/23 15:53 37.6 C H 76 17 118/73 94 Room Air 04/02/23 08:00 74 04/02/23 08:00 Room Air 04/02/23 11:44 38 C H 75 17 113/72 97 Room Air 04/02/23 07:59 36.5 C 80 18 119/74 93 Room Air 04/02/23 04:36 Room Air Laboratory Results Short CBC 04/01/23 04/02/23 Range/Units 16:04 09:15 WBC 9.95 10.84 H (4.8-10.8) K/ul Hgb 9.2 L 9.4 L (14.0-18.0) g/dl Hct 31.0 L 31.8 L (42.0-52.0) % Plt Count 417 H 381 (130-400) K/uL BMP 04/02/23 09:15 Sodium 143 Potassium 3.7 Chloride 108 H Carbon Dioxide 28 BUN 45 H Creatinine 0.53 L Calcium 8.4 L Urine 04/02/23 Range/Units Unknown Urine Color Yellow Urine Appearance Slightly Cloudy (Clear) Urine pH 7.0 (4.5-7.5) Ur Specific [place] 1.020 (1.000-1.030) Urine Protein 3+ H (Negative) Urine Glucose (UA) Negative (Negative) Medications Administered Home Medications Medication Instructions Recorded Confirmed Last Taken nitroglycerin 0.4 mg sublingual 0.4 mg sublingual DIRECTED PRN 08/09/19 03/02/23 12/17/21 08:00 tablet Chest Pain tamsulosin 0.4 mg capsule 0.4 mg PO HS 01/11/21 03/02/23 12/17/21 08:00 atorvastatin 80 mg tablet 80 mg feeding tube QPM 05/17/21 03/02/23 Unknown clopidogrel 75 mg tablet (Plavix) 75 mg feeding tube QAM 11/17/22 03/02/23 Unknown enoxaparin 120 mg/0.8 mL 70 mg subcut Q12 11/17/22 03/02/23 Unknown subcutaneous syringe ferrous sulfate 325 mg (65 mg 325 mg PO QAM 11/17/22 03/02/23 Unknown iron) tablet,delayed release lisinopril 5 mg tablet 5 mg feeding tube DAILY 11/17/22 03/02/23 Unknown Tube Feeding Water Flush 100 ml PEG Q6H 30 days 02/24/23 03/02/23 Unknown acetaminophen 325 mg/10.15 mL oral 650 mg (20.3 mL) PEG Q6H PRN fever 02/24/23 03/02/23 Unknown suspension or pain 30 days #300 mL amiodarone 200 mg tablet 200 mg PEG BIDM 30 days #60 tabs 02/24/23 03/02/23 Unknown cholestyramine-aspartame 4 gram 4 g PO BID@1000,2200 30 days #60 ea 02/24/23 03/02/23 Unknown oral powder for susp in a packet (Prevalite) insulin aspart U-100 100 unit/mL 1 unit (0.01 mL) SC BID@1130,1630 02/24/23 03/02/23 Unknown subcutaneous solution (Novolog 30 days #100 mL U-100 Insulin aspart) insulin aspart U-100 100 unit/mL 1 unit (0.01 mL) SC DAILY@0730 30 02/24/23 03/02/23 Unknown subcutaneous solution (Novo days #100 mL U-100 Insulin aspart) insulin aspart U-100 100 unit/mL 1 unit (0.01 mL) SC DAILY@2000 30 02/24/23 03/02/23 Unknown subcutaneous solution (Novolog days #100 mL U-100 Insulin aspart) magnesium oxide 400 mg (241.3 mg 400 mg PEG BID 30 days #60 tabs 02/24/23 03/02/23 Unknown magnesium) tablet metronidazole 500 mg tablet 500 mg feeding tube Q8 9 days #27 02/24/23 03/02/23 Unknown tabs miconazole nitrate 2 % topical 1 applic EXT PRN PRN fungal rash 02/24/23 03/02/23 Unknown powder (Desenex) 30 days #85 grams multivit and minerals-ferrous 15 ml PEG QAM 30 days #450 mL 02/24/23 03/02/23 Unknown gluconate 9 mg iron/15 mL oral liquid (Centrum) nystatin 100,000 unit/gram topical 1 applic EXT BID 14 days #15 grams 02/24/23 03/02/23 Unknown cream sulfamethoxazole 200 20 ml feeding tube Q12 9 days #360 02/24/23 03/02/23 Unknown mg-trimethoprim 40 mg/5 mL oral mL suspension tamsulosin 0.4 mg capsule 0.4 mg PEG QAM #30 caps 02/24/23 03/02/23 Unknown insulin glargine 100 unit/mL 16 unit SC BID@0830,199903/02/23 03/02/23 Unknown subcutaneous solution (Lantus U-100 Insulin) Active Medications Generic Name Dose Route Start Last Admin Trade Name Freq PRN Reason Stop Dose Admin Acetaminophen 650 mg 04/01/23 15:15 04/02/23 11:40 Acetaminophen Susp 325 Mg/10.15 Ml Udc PEG 05/01/23 15:14 650 mg Q4H PRN Administration fever Atorvastatin Calcium 80 mg 03/09/23 21:00 04/01/23 21:42 Atorvastatin 40 Mg Tab PEG 06/10/23 20:59 80 mg QPM SUMA Administration Clopidogrel Bisulfate 75 mg 03/10/23 09:00 04/02/23 08:06 Clopidogrel Bisulfate 75 Mg Tab PEG 04/09/23 08:59 75 mg QAM SUMA Administration Ferrous Sulfate 325 mg 03/05/23 11:00 04/02/23 08:06 Ferrous Sulfate 325 Mg/7.4 Ml Udp PO 06/10/23 10:59 325 mg QAM SUMA Administration Piperacillin Sod/Tazobactam 100 mls @ 25 mls/hr 04/01/23 21:00 04/02/23 14:51 Sod 4.5 gm/ Dextrose IV 04/08/23 20:59 25 mls/hr Q8H SUMA Administration Protocol Insulin Aspart 0 units 03/02/23 07:30 04/02/23 13:44 Insulin Aspart Per Unit Charge SC 04/17/23 07:29 14 units ACHS SUMA Administration Insulin Glargine 10 units 04/02/23 09:00 04/02/23 09:37 Lantus Per Unit Charge SC 05/02/23 08:59 10 units BID SUMA Administration Lactobacillus Acidophilus 2 cap 03/13/23 09:00 04/02/23 08:06 Advanced Probiotic 1250 Mg Capsule PO 06/10/23 08:59 2 cap DAILY SUMA Administration Metoprolol Tartrate 25 mg 03/09/23 21:00 04/02/23 08:07 Metoprolol Tartrate 25 Mg Tab PEG 06/10/23 20:59 25 mg BID SUMA Administration Sterile Water 150 ml 03/04/23 19:00 04/02/23 12:59 Tube Feeding Water Flush PEG 04/03/23 18:59 Not Given Q6H SUMA
[2023-04-02] MEDS ORDERED: DAPTOmycin 300 MG in SYRINGE 0 ML IV SCH (16:45)
[2023-04-02] MEDS: ENOXAPARIN 80 MG/0.8 ML SYR SQ SCH (18:50)
[2023-04-02] MEDS: AMIODARONE 200 MG TAB PEG SCH (18:51)
[2023-04-02] MEDS: PEPTAMEN INTENSE VHP 1.0 CAL 1,000 ML BAG PEG SCH (20:18)
[2023-04-02] MEDS: ATORVASTATIN 40 MG TAB PEG SCH (21:13)
[2023-04-03] MEDS: TUBE FEEDING WATER FLUSH PEG SCH ×3 (06:05→14:45)
[2023-04-03] MEDS: PIPERACILLIN/TAZOBACTAM 4.5 GM in DEXTROSE 5% MINI-B 100 ML IV SCH ×2 (06:05→13:55)
[2023-04-03] MEDS: ENOXAPARIN 80 MG/0.8 ML SYR SQ SCH ×2 (06:06→18:08)
[2023-04-03 07:44] LABS: Hematocrit (blood only) 30.9 % (42.0-52.0); Hemoglobin 8.8 g/dl (14.0-18.0); Mean Corpuscular Hemoglobin 21.6 pg (25.0-34.0); Mean Corpuscular Hgb Conc 28.5 g/dL (32.0-36.0); Mean Corpuscular Volume 75.7 fL (80.0-100.0); Mean Platelet Volume 10.9 fL (9.4-12.4); Platelet Count 363 K/uL (130-400); Red Blood Count 4.08 M/uL (4.70-6.10); White Blood Count 8.58 K/ul (4.8-10.8)
[2023-04-03 07:57] LABS: BUN Creatinine Ratio 94.2 (10-20); Calcium 8.3 mg/dl (8.6-10.3); Creatinine Clr Calc Pharmacy 150.8 ml/min; Est GFR (African American) 129.7 ml/min; Est GFR (Non-African American) 111.9 ml/min; Magnesium 1.9 mg/dl (1.7-2.4); Phosphorus 3.2 mg/dl (2.5-4.9); Potassium 3.7 mmol/L (3.5-5.1)
[2023-04-03] MEDS ORDERED: POTASSIUM CHLORIDE 20 MEQ/15 ML UDC PEG STA (08:46)
[2023-04-03] MEDS: INSULIN ASPART PER UNIT CHARGE SC SCH ×4 (09:29→22:35)
[2023-04-03] MEDS: LANTUS PER UNIT CHARGE SC SCH ×2 (09:29→22:35)
[2023-04-03] MEDS: CLOPIDOGREL BISULFATE 75 MG TAB PEG SCH (09:30)
[2023-04-03] MEDS: AMIODARONE 200 MG TAB PEG SCH ×2 (09:31→18:08)
[2023-04-03] MEDS: FERROUS SULFATE 325 MG/7.4 ML UDP PO SCH (09:31)
[2023-04-03] MEDS: ADVANCED PROBIOTIC 1250 MG CAPSULE PO SCH (09:31)
[2023-04-03] MEDS: METOPROLOL TARTRATE 25 MG TAB PEG SCH ×2 (09:33→22:23)
--- NOTE | 2023-04-03 13:24 | Hospitalist Progress Note ---
Date of Service April 03, 2023 Assessment & Plan (1) Fever: (2) Infected decubitus ulcer: (3) Splenic infarction: (4) Acute hyponatremia: (5) Hematuria: (6) Aortic stenosis: (7) Paroxysmal atrial fibrillation: (8) Peripheral arterial disease: (9) History of CVA (cerebrovascular accident): (10) BPH with obstruction/lower urinary tract symptoms: (11) Type 2 diabetes mellitus: (12) HTN (hypertension): Plan Mr. Turner is a 62 year old gentleman with complicated medical history notable for recurrent stroke c/b right hemiplegia and various other deficiencies reported below, paroxysmal atrial fibrillation, chronic paroxsymal atrial fibrillation, aortic stenosis, severe CAD s/p multiple PCI and CABG, DMTII, chronic decubitus ulcer c/b infection who is admitted due to fever and recurrent infection. Patient stable from all accounts and does not have telemetry requirements at this time; however, expresses severe concern and worry given patient's history. Discussion had with Cardiology who feels patient is otherwise stable from a cardiac standpoint and would be stable to transition from telemetry unit--however, declines transition. Patient now with fevers, despite 48 hours fever free. Planning infectious work up and close monitoring. #Fever #Leukocytosis #Bacteruria #Decubitus ulcer c/b infection Fever on 03/16 due to infected decubitus ulcer, however, has remained stable until recently Patient was stable for discharge awaiting placement and then developed a fever for which work up was done which showed infected sacral ulcer again. Wound culture growing MRSA sensitive to vancomycin and daptomycin. General surgery was consulted-no plans for debridement. Wound Care- was off of wound vac to allow peripheral healing, vac placed once more on 03/23 then removed 04/01 2/2 maceration Blood Cultures negative, UA questionable Discontinue Zosyn, Daptomycin Infectious work up negative, UA collected s/p abx; wound culture without overt infection, NGTD blood cultures -Complete 5 day course of CTX iso fevers/leukocytosis/bacteruria and barajas in [id number] -Encourage barajas hygiene and maintainance #Pulmonary Edema *improved #Pleural Effusions *improved Pt occasionally sounds more wet than usual Chest XRAY ordered 03/25- noted progressing pulmonary edema, pleural effusions No increased oxygen need at this time, currently on RA IV Lasix 40mg as needed, last ordered on 04/01 Continue suctioning as able Continue to monitor Chest Percussion therapy #Eye discharge *improved recurrent eye discharge, especially in left eye Polytrim eye drops for Rx #Acute splenic infarct #Chronic renal infarcts Noted on CT Abd/pelvis: "an acute splenic infarct measuring up to 6 mm with chronic renal infarcts and cortical scarring again noted." Continue therapeutic Lovenox Previous provider discussed with surgery on 03/17/2023: No further intervention needed for acute splenic infarct #Hyponatremia #Hypomagnesia replete as needed Currently resolved. #Hematuria *resolved [place] hematuria noted in the facility Likely secondary to trauma due to Barajas catheter CT scan of the chest and pelvis did show nonspecific thickening of the bladder wall Urine culture negative Hematuria resolved Lovenox resumed without recurrence of hematuria CBC remains stable #Aortic Stenosis H/O severe aortic stenosis Stable #Paroxysmal Atrial Fibrillation As per prior provider On the night of December 07 ; patient converted to atrial fibrillation with rapid ventricular response. He was startedamiodarone drip as per cardiology recommendation Converted back to sinus rhythm on December 08 after 5 hours. Repeat echocardiogram was done; found to have moderately reduced EF of 35 to 40% with severe Rate remains controlled without any cardiac symptoms -- Continue amiodarone, metoprolol On therapeutic dose of Lovenox SQ for anticoagulation #Hx of CVA History of recurrent CVA despite DAPT and anticoagulation therapy Chronic right hemiplegia/left arm paralysis/mostly nonverbal/expressive aphasia/dysphagia with PEG tube Continue statin, Plavix/Lovenox #BPH/LUTS Barajas in place Continue tamsulosin. #DMII A1c of 6.9 on 09/26. Continue Lantus, sliding scale insulin. Adjust as indicated #HTN BP overall stable. Continue metoprolol. Resume lisinopril if BP remains high. #Right heel wound Wound culture showed Corynebacterium species Completed antibiotics on 03/06/2023 as per the ID recommendation. Continue wound care Diet: has PEG DVT prophylaxis: Therapeutic anticoagulation with Lovenox Disposition-pt medically stable, bed search per Admission and Anticipated Discharge Date Admission Date: March 02, 2023 Subjective NAEO Afebrile since yesterday, appears more comfortable at bedside this morning Will make vocalizations when spoken too Explained plan to thoroughly Review of Systems Review of Systems: All systems reviewed & are unremarkable except as noted in Subjective Physical Exam Constitutional: WD/WN, vitals as above Respiratory: normal respiratory effort, lungs clear to auscultation Cardiovascular: +ULISES Gastrointestinal (Abdomen): normal bowel sounds, soft, nontender, no hepatosplenomegaly Results & Data Results & Data Vital Signs (Past 12 Hours) Vital Signs Temp Pulse Pulse Resp BP Pulse Ox O2 Del Method 04/03/23 12:06 36.7 C 98 H 18 134/86 97 Room Air 04/03/23 07:00 83 04/03/23 08:02 37.1 C 79 18 116/70 96 Room Air 04/03/23 04:00 36.9 C 81 18 108/71 96 Room Air 04/03/23 02:22 Room Air Laboratory Results Short CBC 04/03/23 Range/Units 07:06 WBC 8.58 (4.8-10.8) K/ul Hgb 8.8 L (14.0-18.0) g/dl Hct 30.9 L (42.0-52.0) % Plt Count 363 (130-400) K/uL BMP 04/03/23 07:06 Sodium 144 Potassium 3.7 Chloride 110 H Carbon Dioxide 27 BUN 49 H Creatinine 0.52 L Glucose 135 H Calcium 8.3 L Cardiac Enzymes 04/03/23 Range/Units 07:06 Total Creatine Kinase 28 L (30-223) U/L Urine 04/02/23 Range/Units Unknown Urine Color Yellow Urine Appearance Slightly Cloudy (Clear) Urine pH 7.0 (4.5-7.5) Ur Specific [place] 1.020 (1.000-1.030) Urine Protein 3+ H (Negative) Urine Glucose (UA) Negative (Negative) Medications Administered Home Medications Medication Instructions Recorded Confirmed Last Taken nitroglycerin 0.4 mg sublingual 0.4 mg sublingual DIRECTED PRN 08/09/19 03/02/23 12/17/21 08:00 tablet Chest Pain tamsulosin 0.4 mg capsule 0.4 mg PO HS 01/11/21 03/02/23 12/17/21 08:00 atorvastatin 80 mg tablet 80 mg feeding tube QPM 05/17/21 03/02/23 Unknown clopidogrel 75 mg tablet (Plavix) 75 mg feeding tube QAM 11/17/22 03/02/23 Unknown enoxaparin 120 mg/0.8 mL 70 mg subcut Q12 11/17/22 03/02/23 Unknown subcutaneous syringe ferrous sulfate 325 mg (65 mg 325 mg PO QAM 11/17/22 03/02/23 Unknown iron) tablet,delayed release lisinopril 5 mg tablet 5 mg feeding tube DAILY 11/17/22 03/02/23 Unknown Tube Feeding Water Flush 100 ml PEG Q6H 30 days 02/24/23 03/02/23 Unknown acetaminophen 325 mg/10.15 mL oral 650 mg (20.3 mL) PEG Q6H PRN fever 02/24/23 03/02/23 Unknown suspension or pain 30 days #300 mL amiodarone 200 mg tablet 200 mg PEG BIDM 30 days #60 tabs 02/24/23 03/02/23 Unknown cholestyramine-aspartame 4 gram 4 g PO BID@1000,2200 30 days #60 ea 02/24/23 03/02/23 Unknown oral powder for susp in a packet (Prevalite) insulin aspart U-100 100 unit/mL 1 unit (0.01 mL) SC BID@1130,1630 02/24/23 03/02/23 Unknown subcutaneous solution (Novolog 30 days #100 mL U-100 Insulin aspart) insulin aspart U-100 100 unit/mL 1 unit (0.01 mL) SC DAILY@0730 30 02/24/23 03/02/23 Unknown subcutaneous solution (Novo days #100 mL U-100 Insulin aspart) insulin aspart U-100 100 unit/mL 1 unit (0.01 mL) SC DAILY@1999 30 02/24/23 03/02/23 Unknown subcutaneous solution (Novo days #100 mL U-100 Insulin aspart) magnesium oxide 400 mg (241.3 mg 400 mg PEG BID 30 days #60 tabs 02/24/23 03/02/23 Unknown magnesium) tablet metronidazole 500 mg tablet 500 mg feeding tube Q8 9 days #27 02/24/23 03/02/23 Unknown tabs miconazole nitrate 2 % topical 1 applic EXT PRN PRN fungal rash 02/24/23 03/02/23 Unknown powder (Desenex) 30 days #85 grams multivit and minerals-ferrous 15 ml PEG QAM 30 days #450 mL 02/24/23 03/02/23 Unknown gluconate 9 mg iron/15 mL oral liquid (Centrum) nystatin 100,000 unit/gram topical 1 applic EXT BID 14 days #15 grams 02/24/23 03/02/23 Unknown cream sulfamethoxazole 200 20 ml feeding tube Q12 9 days #360 02/24/23 03/02/23 Unknown mg-trimethoprim 40 mg/5 mL oral mL suspension tamsulosin 0.4 mg capsule 0.4 mg PEG QAM #30 caps 02/24/23 03/02/23 Unknown insulin glargine 100 unit/mL 16 unit SC BID@0830,2000 03/02/23 03/02/23 Unknown subcutaneous solution (Lantus U-100 Insulin) Active Medications Generic Name Dose Route Start Last Admin Trade Name Freq PRN Reason Stop Dose Admin Acetaminophen 650 mg 04/01/23 15:15 04/02/23 20:19 Acetaminophen Susp 325 Mg/10.15 Ml Udc PEG 05/01/23 15:14 650 mg Q4H PRN Administration fever Amiodarone HCl 200 mg 04/02/23 17:00 04/03/23 09:31 Amiodarone 200 Mg Tab PEG 05/02/23 16:59 200 mg BIDM SUMA Administration Atorvastatin Calcium 80 mg 03/09/23 21:00 04/02/23 21:13 Atorvastatin 40 Mg Tab PEG 06/10/23 20:59 80 mg QPM SUMA Administration Clopidogrel Bisulfate 75 mg 03/10/23 09:00 04/03/23 09:30 Clopidogrel Bisulfate 75 Mg Tab PEG 04/09/23 08:59 75 mg QAM SUMA Administration Enoxaparin Sodium 70 mg 04/02/23 18:00 04/03/23 06:06 Enoxaparin 80 Mg/0.8 Ml Syr SQ 06/10/23 17:59 70 mg Q12H SUMA Administration Ferrous Sulfate 325 mg 03/05/23 11:00 04/03/23 09:31 Ferrous Sulfate 325 Mg/7.4 Ml Udp PO 06/10/23 10:59 325 mg QAM SUMA Administration Piperacillin Sod/Tazobactam 100 mls @ 25 mls/hr 04/01/23 21:00 04/03/23 10:57 Sod 4.5 gm/ Dextrose IV 04/08/23 20:59 Infused Q8H [facility] Infusion Protocol Insulin Aspart 0 units 03/02/23 07:30 04/03/23 12:59 Insulin Aspart Per Unit Charge SC 04/17/23 07:29 16 units ACHS SUMA Administration Insulin Glargine 10 units 04/02/23 09:00 04/03/23 09:29 Lantus Per Unit Charge SC 05/02/23 08:59 10 units BID SUMA Administration Lactobacillus Acidophilus 2 cap 03/13/23 09:00 04/03/23 09:31 Advanced Probiotic 1250 Mg Capsule PO 06/10/23 08:59 2 cap DAILY SUMA Administration Metoprolol Tartrate 25 mg 03/09/23 21:00 04/03/23 09:33 Metoprolol Tartrate 25 Mg Tab PEG 06/10/23 20:59 25 mg BID SUMA Administration Nutritional Formula 1,000 ml 04/02/23 12:00 04/02/23 20:18 Peptamen Intense Vhp 1.0 [place] 1,000 Ml Bag PEG 05/02/23 11:59 1,000 ml .See Protocol SUMA Administration Protocol Sterile Water 150 ml 03/04/23 19:00 04/03/23 06:07 Tube Feeding Water Flush PEG 04/03/23 18:59 150 ml Q6H SUMA Administration
[2023-04-03] MEDS ORDERED: HYDROmorphone INJ 0.5 MG/0.5 ML SYR IV STA (14:22)
[2023-04-03] MEDS ORDERED: HYDROmorphone INJ 0.5 MG/0.5 ML SYR ONE (14:25)
[2023-04-03] MEDS ORDERED: ACETAMINOPHEN SUSP 325 MG/10.15 ML UDC PEG PRN (15:07)
[2023-04-03] MEDS: cefTRIAXone SODIUM 2,000 MG in DEXTROSE 5 % MINI-B 50 ML IV SCH (15:25)
[2023-04-03] MEDS: PEPTAMEN INTENSE VHP 1.0 CAL 1,000 ML BAG PEG SCH (20:00)
[2023-04-03] MEDS: ATORVASTATIN 40 MG TAB PEG SCH (22:23)
[2023-04-04] MEDS: ENOXAPARIN 80 MG/0.8 ML SYR SQ SCH ×2 (05:37→16:39)
[2023-04-04 08:40] LABS: Hematocrit (blood only) 31.3 % (42.0-52.0); Hemoglobin 8.9 g/dl (14.0-18.0); Mean Corpuscular Hemoglobin 21.5 pg (25.0-34.0); Mean Corpuscular Hgb Conc 28.4 g/dL (32.0-36.0); Mean Corpuscular Volume 75.8 fL (80.0-100.0); Mean Platelet Volume 11.5 fL (9.4-12.4); Platelet Count 370 K/uL (130-400); RDW Coefficient of Variation 20.1 % (11.5-14.5); RDW Standard Deviation 53.6 fL (36.4-46.3); Red Blood Count 4.13 M/uL (4.70-6.10); White Blood Count 6.37 K/ul (4.8-10.8)
[2023-04-04] MEDS: CLOPIDOGREL BISULFATE 75 MG TAB PEG SCH (08:50)
[2023-04-04] MEDS: FERROUS SULFATE 325 MG/7.4 ML UDP PO SCH (08:50)
[2023-04-04] MEDS: ADVANCED PROBIOTIC 1250 MG CAPSULE PO SCH (08:51)
[2023-04-04] MEDS: METOPROLOL TARTRATE 25 MG TAB PEG SCH ×2 (08:51→22:33)
[2023-04-04] MEDS ORDERED: FUROSEMIDE 20 MG/2 ML UDP PEG SCH (09:00)
[2023-04-04 09:05] LABS: Calcium 8.3 mg/dl (8.6-10.3); Creatinine Clr Calc Pharmacy 145.3 ml/min; Est GFR (African American) 127.7 ml/min; Est GFR (Non-African American) 110.2 ml/min; Phosphorus 2.4 mg/dl (2.5-4.9)
[2023-04-04] MEDS: LANTUS PER UNIT CHARGE SC SCH ×2 (09:10→21:36)
[2023-04-04] MEDS: INSULIN ASPART PER UNIT CHARGE SC SCH ×4 (09:10→21:35)
[2023-04-04] MEDS ORDERED: ACETAMINOPHEN 1,000 MG/100 ML VIAL IV PRN (09:37)
[2023-04-04] MEDS: HYDROmorphone INJ 0.5 MG/0.5 ML SYR IV SCH (11:28)
--- NOTE | 2023-04-04 11:41 | Hospitalist Progress Note ---
Date of Service April 04, 2023 Assessment & Plan (1) Fever: (2) Infected decubitus ulcer: (3) Splenic infarction: (4) Acute hyponatremia: (5) Hematuria: (6) Aortic stenosis: (7) Paroxysmal atrial fibrillation: (8) Peripheral arterial disease: (9) History of CVA (cerebrovascular accident): (10) BPH with obstruction/lower urinary tract symptoms: (11) Type 2 diabetes mellitus: (12) HTN (hypertension): Plan Mr. Turner is a 62 year old gentleman with complicated medical history notable for recurrent stroke c/b right hemiplegia and various other deficiencies reported below, paroxysmal atrial fibrillation, chronic paroxsymal atrial fibrillation, aortic stenosis, severe CAD s/p multiple PCI and CABG, DMTII, chronic decubitus ulcer c/b infection who is admitted due to fever and recurrent infection. Patient stable from all accounts and does not have telemetry requirements at this time; however, expresses severe concern and worry given patient's history will not accept patient transitioning off of telemetry. Discussion had with Cardiology who feels patient is otherwise stable from a cardiac standpoint and would be stable to transition from telemetry unit--however, declines transition. Patient with intermittent fevers. Repeated infectious work up reveals no clear source of infection and abx now for presumptive UTI; however, given subjective and objective signs of pain, as well as nursing reports of discomfort, increased vocalizations, loss of bowels during intensive wound changes, diaphoresis, and tachycardia/tachypnea, suspect fevers are sequelae of lack of analgesia. It appears that the challenge of analgesia adequate for degree of wounds has been addressed historically; however, has been reluctant to "allow" for analgesia despite multiple attempts to ensure patient is comfortable--even denying routine tylenol. Education has been provided over the course of the last 48 hours regarding the side effects, risks, and benefits of various types of analgesia, as well as what types would be contraindicated in the patient. Despite these efforts, patient has been verbally insulting to nursing staff and insinuated ill-intent of multiple providers. It was expressed clearly that pain must be addressed and Pain management was consulted to assist in this manner. #Fever #Uncontrolled Pain -Fevers witnessed tend to correspond to repositioning and wound changes; witnessed on multiple occasions dramatic change in patient status based upon phsyical touch, presence of wound care cart, and various discussions about care--patient demonstrates degree of awareness of surrounds, as well as subjective and objective signs of pain that are being unaddressed despite multiple attempts to educate and communicate with surrogate () -Pain consult -Schedule acetaminophen 650 q8h -Hydromorphone 0.25mg daily with wound care -Plan for ethics consultation given refractory disagreement between (surrogate) and care team regarding treatment of severe pain given patient lack capacity despite attempts to understand/ empathize/ educate about analgesia and degree of pain endured based upon wound severity, as well as consequence of long standing untreated pain #Leukocytosis *resolved #Bacteruria #Decubitus ulcer c/b infection Fever on 03/16 due to infected decubitus ulcer, however, has remained stable until recently Patient was stable for discharge awaiting placement and then developed a fever for which work up was done which showed infected sacral ulcer again. Wound culture growing MRSA sensitive to vancomycin and daptomycin. General surgery was consulted-no plans for debridement. Wound Care- was off of wound vac to allow peripheral healing, vac placed once more on 03/23 then removed 04/01 2/2 maceration Blood Cultures negative, UA questionable Discontinue Zosyn, Daptomycin Infectious work up negative, UA collected s/p abx; wound culture without overt infection, NGTD blood cultures -Complete 5 day course of CTX iso fevers/leukocytosis/bacteruria and barajas in [id number] -Encourage barajas hygiene and maintainance #Pulmonary Edema *improved #Pleural Effusions *improved Pt occasionally sounds more wet than usual Chest XRAY ordered 03/25- noted progressing pulmonary edema, pleural effusions No increased oxygen need at this time, currently on RA IV Lasix 40mg as needed, last ordered on 04/01 Continue suctioning as able Continue to monitor Chest Percussion therapy #Eye discharge *improved recurrent eye discharge, especially in left eye Polytrim eye drops for Rx #Acute splenic infarct #Chronic renal infarcts Noted on CT Abd/pelvis: "an acute splenic infarct measuring up to 6 mm with chronic renal infarcts and cortical scarring again noted." Continue therapeutic Lovenox Previous provider discussed with surgery on 03/17/2023: No further intervention needed for acute splenic infarct #Hyponatremia #Hypomagnesia replete as needed Currently resolved. #Hematuria *resolved [place] hematuria noted in the facility Likely secondary to trauma due to Barajas catheter CT scan of the chest and pelvis did show nonspecific thickening of the bladder wall Urine culture negative Hematuria resolved Lovenox resumed without recurrence of hematuria CBC remains stable #Aortic Stenosis H/O severe aortic stenosis Stable #Paroxysmal Atrial Fibrillation As per prior provider On the night of December 07 ; patient converted to atrial fibrillation with rapid ventricular response. He was startedamiodarone drip as per cardiology recommendation Converted back to sinus rhythm on December 08 after 5 hours. Repeat echocardiogram was done; found to have moderately reduced EF of 35 to 40% with severe Rate remains controlled without any cardiac symptoms -- Continue amiodarone, metoprolol On therapeutic dose of Lovenox SQ for anticoagulation #Hx of CVA History of recurrent CVA despite DAPT and anticoagulation therapy Chronic right hemiplegia/left arm paralysis/mostly nonverbal/expressive aphasia/dysphagia with PEG tube Continue statin, Plavix/Lovenox #BPH/LUTS Barajas in place Continue tamsulosin. #DMII A1c of 6.9 on 09/26. Continue Lantus, sliding scale insulin. Adjust as indicated #HTN BP overall stable. Continue metoprolol. Resume lisinopril if BP remains high. #Right heel wound Wound culture showed Corynebacterium species Completed antibiotics on 03/06/2023 as per the ID recommendation. Continue wound care Diet: has PEG DVT prophylaxis: Therapeutic anticoagulation with Lovenox Disposition-pt medically stable, bed search per Admission and Anticipated Discharge Date Admission Date: March 02, 2023 Subjective NAEO; still with intermittent fevers, however, attributed to uncontrolled pain and large decubitus ulcer. at bedside, documentation reflecting ongoing conversation in supplemental communication note. Patient calm at bedside, does not appear in distress this am Review of Systems Review of Systems: Unobtainable due to cognitive status Physical Exam Constitutional: WD/WN, vitals as above Respiratory: normal respiratory effort, lungs clear to auscultation Cardiovascular: +ULISES Results & Data Results & Data Vital Signs (Past 12 Hours) Vital Signs Temp Pulse Pulse Resp BP Pulse Ox O2 Del Method 04/04/23 07:54 Room Air 04/04/23 07:49 37.6 C H 81 16 124/81 95 Room Air 04/04/23 04:00 37.1 C 84 18 129/80 96 Room Air 04/04/23 01:19 Room Air 04/04/23 01:06 64 Laboratory Results Short CBC 10/30/23 Range/Units 08:14 WBC 6.37 (4.8-10.8) K/ul Hgb 8.9 L (14.0-18.0) g/dl Hct 31.3 L (42.0-52.0) % Plt Count 370 (130-400) K/uL BMP 04/04/23 08:14 Sodium 146 H Potassium 4.0 Chloride 113 H Carbon Dioxide 28 BUN 47 H Creatinine 0.54 L Glucose 179 H Calcium 8.3 L Medications Administered Home Medications Medication Instructions Recorded Confirmed Last Taken nitroglycerin 0.4 mg sublingual 0.4 mg sublingual DIRECTED PRN 08/09/19 03/02/23 12/17/21 08:00 tablet Chest Pain tamsulosin 0.4 mg capsule 0.4 mg PO HS 01/11/21 03/02/23 12/17/21 08:00 atorvastatin 80 mg tablet 80 mg feeding tube QPM 05/17/21 03/02/23 Unknown clopidogrel 75 mg tablet (Plavix) 75 mg feeding tube QAM 11/17/22 03/02/23 Unknown enoxaparin 120 mg/0.8 mL 70 mg subcut Q12 11/17/22 03/02/23 Unknown subcutaneous syringe ferrous sulfate 325 mg (65 mg 325 mg PO QAM 11/17/22 03/02/23 Unknown iron) tablet,delayed release lisinopril 5 mg tablet 5 mg feeding tube DAILY 11/17/22 03/02/23 Unknown Tube Feeding Water Flush 100 ml PEG Q6H 30 days 02/24/23 03/02/23 Unknown acetaminophen 325 mg/10.15 mL oral 650 mg (20.3 mL) PEG Q6H PRN fever 02/24/23 03/02/23 Unknown suspension or pain 30 days #300 mL amiodarone 200 mg tablet 200 mg PEG BIDM 30 days #60 tabs 02/24/23 03/02/23 U nknown cholestyramine-aspartame 4 gram 4 g PO BID@1000,2200 30 days #60 ea 02/24/23 03/02/23 Unknown oral powder for susp in a packet (Prevalite) insulin aspart U-100 100 unit/mL 1 unit (0.01 mL) SC BID@1130,1630 02/24/23 03/02/23 Unknown subcutaneous solution (Novolog 30 days #100 mL U-100 Insulin aspart) insulin aspart U-100 100 unit/mL 1 unit (0.01 mL) SC DAILY@07 30 02/24/23 03/02/23 Unknown subcutaneous solution (Novolog days #100 mL U-100 Insulin aspart) insulin aspart U-100 100 unit/mL 1 unit (0.01 mL) SC DAILY@199902/24/23 03/02/23 Unknown subcutaneous solution (Novolog #100 mL U-100 Insulin aspart) magnesium oxide 400 mg (241.3 mg 400 mg PEG BID 30 days #60 tabs 02/24/23 03/02/23 Unknown magnesium) tablet metronidazole 500 mg tablet 500 mg feeding tube Q8 9 days #27 02/24/23 03/02/23 Unknown tabs miconazole nitrate 2 % topical 1 applic EXT PRN PRN fungal rash 02/24/23 03/02/23 Unknown powder (Desenex) 30 days #85 grams multivit and minerals-ferrous 15 ml PEG QAM 30 days #450 mL 02/24/23 03/02/23 Unknown gluconate 9 mg iron/15 mL oral liquid (Centrum) nystatin 100,000 unit/gram topical 1 applic EXT BID 14 days #15 grams 02/24/23 03/02/23 Unknown cream sulfamethoxazole 200 20 ml feeding tube Q12 9 days #360 02/24/23 03/02/23 Unknown mg-trimethoprim 40 mg/5 mL oral mL suspension tamsulosin 0.4 mg capsule 0.4 mg PEG QAM #30 caps 02/24/23 03/02/23 Unknown insulin glargine 100 unit/mL 16 unit SC BID@0830,199903/02/23 03/02/23 Unknown subcutaneous solution (Lantus U-100 Insulin) Active Medications Generic Name Dose Route Start Last Admin Trade Name Freq PRN Reason Stop Dose Admin Amiodarone HCl 200 mg 04/02/23 17:00 04/04/23 11:42 Amiodarone 200 Mg Tab PEG 05/02/23 16:59 Not Given BIDM SUMA Atorvastatin Calcium 80 mg 03/09/23 21:00 04/03/23 22:23 Atorvastatin 40 Mg Tab PEG 06/10/23 20:59 80 mg QPM SUMA Administration Clopidogrel Bisulfate 75 mg 03/10/23 09:00 04/04/23 08:50 Clopidogrel Bisulfate 75 Mg Tab PEG 04/09/23 08:59 75 mg QAM SUMA Administration Enoxaparin Sodium 70 mg 04/02/23 18:00 04/04/23 05:37 Enoxaparin 80 Mg/0.8 Ml Syr SQ 06/10/23 17:59 70 mg Q12H SUMA Administration Ferrous Sulfate 325 mg 03/05/23 11:00 04/04/23 08:50 Ferrous Sulfate 325 Mg/7.4 Ml Udp PO 06/10/23 10:59 325 mg QAM SUMA Administration Furosemide 20 mg 04/04/23 09:00 04/04/23 08:51 Furosemide 20 Mg/2 Ml Udp PEG 05/04/23 08:59 20 mg QAM SUMA Administration Hydromorphone HCl 0.25 mg 04/04/23 11:00 04/04/23 11:28 Hydromorphone Inj 0.5 Mg/0.5 Ml Syr IV 04/18/23 10:59 0.25 mg DAILY SUMA Administration Ceftriaxone Sodium 2,000 mg/ 50 mls @ 100 mls/hr 04/03/23 13:30 04/04/23 14:21 Dextrose IV 04/11/23 13:29 Infused Q24H SUMA Infusion Protocol Insulin Aspart 0 units 03/02/23 07:30 04/04/23 13:40 Insulin Aspart Per Unit Charge SC 04/17/23 07:29 18 units ACHS SUMA Administration Insulin Glargine 10 units 04/02/23 09:00 04/04/23 09:10 Lantus Per Unit Charge SC 05/02/23 08:59 10 units BID SUMA Administration Lactobacillus Acidophilus 2 cap 03/13/23 09:00 04/04/23 08:51 Advanced Probiotic 1250 Mg Capsule PO 06/10/23 08:59 2 cap DAILY SUMA Administration Metoprolol Tartrate 25 mg 03/09/23 21:00 04/04/23 08:51 Metoprolol Tartrate 25 Mg Tab PEG 06/10/23 20:59 25 mg BID SUMA Administration Nutritional Formula 1,000 ml 04/02/23 12:00 04/03/23 20:00 Peptamen Intense Vhp 1.0 [place] 1,000 Ml Bag PEG 05/02/23 11:59 1,000 ml .See Protocol SUMA Administration Protocol
[2023-04-04] MEDS: AMIODARONE 200 MG TAB PEG SCH ×2 (11:42→16:39)
--- NOTE | 2023-04-04 11:51 | Communication Note ---
Date of Service: April 04, 2023 On 04/03, in search of cause of fevers, I presented to patient's beside around 1400 to visualize wound change on sacrum to assess for concerns of infection, etc. Prior to wound change, patient became flushed, tachypnic, tachcardic, and febrile once the wound cart was brought to bedside. I questioned pain plan during wound changes/debridement, and discovered that Tylenol has been ordered only for fevers, but nothing for analgesia was or has been administered in recent history for wound changes/repositioning/etc. expressed concerns over medication. It was discussed the severity of wound and the cleaning itself borders minor procedure given the depth/progression of the decubitus ulcer. After discussing options, she agreed to Dilaudid 0.25mg to be administered. Prior to the medication being administered, and likely witnessing the delay of cleaning, patient subsequently quieted down. The Dilaudid was administered as a 1 time dose with discussion of trailing tylenol prior to wound changes to assess differences in patient response and analgesia with the least about of "sedation" possible. Patient expressed concerns with scheduling medications; therefore it was discussed that he requires something as needed for wound changes. She expressed concerns with frequency and max dosing of tylenol--she was reassured that there is a firm limit to the milligrams patient can receive via pharmacy and this is tightly monitored. She expressed concerns with opioid analgesia. The dosing administered was explained to stating that there is very minimal risk of overdose/reliance and stronger analgesia for wound debridement/care would be ideal to address patient's needs. However, a page was received around 1722 regarding pain regimen stating that the "said no more" This prompted further discussion today (04/04) about pain regimen. We discussed the use of tylenol--she states that she did not "say no to tylenol"; however, when discussing a plan to start tylenol, she states that she "is worried about overdose" and "Deja being 'zonked'" It was once more explained that the pharmacy will not exceed the dosing maximum and there are no sedative effects of tylenol. When discussing opioid relief, she states the patient was too "zonked" It was discussed to express the balance between benefits and burdens of treatment--meaning the benefit of adequate/sufficient analgesia during wound dressings of a severe decubitus ulcer would outweighs the degree of accompanying sedation, and that if the patient were able to participate, he would reasonably accept such treatment, as would most reasonable patient's with capacity. The agreed--but then went back to refusing medications. It was suggested to have a "pain expert" discuss with her and come to a plan. This discussion will be documented by Dr. Estrada, pain management.
--- NOTE | 2023-04-04 12:20 | Pain Management Consultation ---
Date of Consultation April 04, 2023 Assessment & Plan (1) Chronic osteomyelitis of sacrum: (2) Chronic ulcer of sacral region: Plan 1. I had a long discussion with the patient and and the present of Merrick her bedside RN today discussing need for pain control at baseline as well as additional pain control measures during sacral wound dressing changes. We discussed the pharmacokinetics of both Dilaudid and Tylenol. I felt that I was able to answer most of her questions though I cannot confirm that she fully understood the need for baseline pain control. 2. Recommend Tylenol 650mg po via peg q8 scheduled. 3. Recommend dilaudid 0.25mg IV x1 daily 15-30min prior to sacral wound dressing changes 4. We will discuss with the hospitalist. History of Present Illness Attending Physician: Katja Carr MD History of Present Illness 63-year-old male with longstanding sacroccygeal osteomyelitis and decubitis ulcer being treated by ID and wound care. Pain management was consulted to provide assistance in a regimen for sacral dressing changes. Patient has a history of a CVA and is not able to participate in the history or exam. His Nasreen is the primary resource and decision maker for the patient. The patient is not able to relay a pain score, but when log rolling him to observe his wound, he moans and grimmaces. The patient had received IV tylenol with some benefit. The expressed concerns over sedation with a single dose of dilaudid 0.25mg IV during a sacral wound change. Pain Assessment Full Body Front + Back: 1. Allergies Allergy/AdvReac Type Severity Reaction Status Date / Time sulfamethoxazole AdvReac Intermediate Verified 03/02/23 04:17 [From Bactrim] trimethoprim [From Bactrim] AdvReac Intermediate Verified 03/02/23 04:17 Home Medications Medication Instructions Recorded Confirmed Type nitroglycerin 0.4 mg sublingual 0.4 mg sublingual DIRECTED PRN 08/09/19 03/02/23 History tablet Chest Pain tamsulosin 0.4 mg capsule 0.4 mg PO HS 01/11/21 03/02/23 History atorvastatin 80 mg tablet 80 mg feeding tube QPM 05/17/21 03/02/23 History clopidogrel 75 mg tablet (Plavix) 75 mg feeding tube QAM 11/17/22 03/02/23 History enoxaparin 120 mg/0.8 mL 70 mg subcut Q12 11/17/22 03/02/23 History subcutaneous syringe ferrous sulfate 325 mg (65 mg 325 mg PO QAM 11/17/22 03/02/23 History iron) tablet,delayed release lisinopril 5 mg tablet 5 mg feeding tube DAILY 11/17/22 03/02/23 History Tube Feeding Water Flush 100 ml PEG Q6H 30 days 02/24/23 03/02/23 Rx acetaminophen 325 mg/10.15 mL oral 650 mg (20.3 mL) PEG Q6H PRN fever 02/24/23 03/02/23 Rx suspension or pain 30 days #300 mL amiodarone 200 mg tablet 200 mg PEG BIDM 30 days #60 tabs 02/24/23 03/02/23 Rx cholestyramine-aspartame 4 gram 4 g PO BID@1000,2200 30 days #60 ea 02/24/23 03/02/23 Rx oral powder for susp in a packet (Prevalite) insulin aspart U-100 100 unit/mL 1 unit (0.01 mL) SC BID@1130,1630 02/24/23 03/02/23 Rx subcutaneous solution (Novolog 30 days #100 mL U-100 Insulin aspart) insulin aspart U-100 100 unit/mL 1 unit (0.01 mL) SC DAILY@0730 30 02/24/23 03/02/23 Rx subcutaneous solution (Novolog days #100 mL U-100 Insulin aspart) insulin aspart U-100 100 unit/mL 1 unit (0.01 mL) SC DAILY@2000 30 02/24/23 03/02/23 Rx subcutaneous solution (Novolog days #100 mL U-100 Insulin aspart) magnesium oxide 400 mg (241.3 mg 400 mg PEG BID 30 days #60 tabs 02/24/23 03/02/23 Rx magnesium) tablet metronidazole 500 mg tablet 500 mg feeding tube Q8 9 days #27 02/24/23 03/02/23 Rx tabs miconazole nitrate 2 % topical 1 applic EXT PRN PRN fungal rash 02/24/23 03/02/23 Rx powder (Desenex) 30 days #85 grams multivit and minerals-ferrous 15 ml PEG QAM 30 days #450 mL 02/24/23 03/02/23 Rx gluconate 9 mg iron/15 mL oral liquid (Centrum) nystatin 100,000 unit/gram topical 1 applic EXT BID 14 days #15 grams 02/24/23 03/02/23 Rx cream sulfamethoxazole 200 20 ml feeding tube Q12 9 days #360 02/24/23 03/02/23 Rx mg-trimethoprim 40 mg/5 mL oral mL suspension tamsulosin 0.4 mg capsule 0.4 mg PEG QAM #30 caps 02/24/23 03/02/23 Rx insulin glargine 100 unit/mL 16 unit SC BID@0830,2000 03/02/23 03/02/23 History subcutaneous solution (Lantus U-100 Insulin) Patient History Medical History Altered mental status Aortic valve stenosis BPH with obstruction/lower urinary tract symptoms CAD (coronary artery disease) 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 in the setting of diabetes for which patient initially underwent off pump 3 vessel coronary artery bypass grafting in 2006 with DUARTE to LAD, SVG to circumflex and SVG to PDA Bare metal stent to protected left main coronary artery 08/13/2015 PCI drug-eluting stent to the saphenous vein graft to RPDA 04/17/2014 PCI, drug-eluting stent to the ostial portion of the SVG to RCA 12/04/2014 f or severe in stent restenosis Carotid stenosis Diabetic peripheral neuropathy associated with type 2 diabetes mellitus Discussion about advance care planning held with family member Dyslipidemia H/O deep venous thrombosis Hemiplegia affecting right dominant side History of CVA (cerebrovascular accident) History of pancreatitis HTN (hypertension) Hypomagnesemia Monoplegia affecting right dominant side Obesity Osteomyelitis of great toe of right foot Palliative care by specialist Persistent wound pain Preoperative cardiovascular examination Proliferative diabetic retinopathy Retinal edema Right foot drop Status post administration of all doses of COVID-19 vaccine series Status post cerebrovascular accident Status post myocardial infarction Superior mesenteric artery stenosis Type 2 diabetes mellitus Weakness generalized Surgical History Hx of vitrectomy S/P angioplasty with stent S/P CABG x 3 S/P debridement (09/16/22) Debridement of Sacral Wound with Wound Vac Placement(Not Applicable) - Marty Vaz DO S/P percutaneous endoscopic gastrostomy (PEG) tube placement S/P PTCA (percutaneous transluminal coronary angioplasty) Family History Father Heart disease Social History Smoking Status: Unknown if ever smoked Tobacco Type: Cigarettes Second Hand Exposure: No; Do You Dip or Chew Tobacco: No; Hx Alcohol Use: No Hx Substance Use: No Preferred Language: Iranian Communication Ability: Impaired Communication Ability Comment: Intermittent Confusion and history of CVA. Visual Impairment: No Limitations Hearing Ability: Normal Creative Services Director Required: No Beliefs That Will Affect Care: Spiritual marital status: Current Living Situation: Detention current occupational status: disabled Other Information That Helps Us Care for You: No Feels Safe at Home: Yes Safety Concerns: Feels Safe At This Time Assistive Devices: Glasses Physical Exam Physical Exam: Patient is lying in bed and responds to position changes with moaning. Nonverbal for discussion today but awake with repositioning. His is present at bedside throughout the discussion. Large sacral decubitus ulcer noted covered with Optifoam as previously documented by wound care. Patient is non tender over SIJ bilaterally or thoracolumbar spine Patient is largely nonparticipatory in the physical exam portion of today's visit Results (Pain Clinic) Diagnostic Review MRI Findings: 09/11/22 MRI OF THE LUMBAR SPINE WITHOUT CONTRAST CLINICAL HISTORY: infected sacral decub ulcer, r/o osteomyelitis COMPARISON STUDY: CT of the abdomen and pelvis August 10, 2022. TECHNIQUE: Utilizing a 1.5 Liliana magnet and dedicated coil, multiplanar, multiecho imaging of the lumbar spine was performed without IV contrast. FINDINGS: For purposes of numbering on this exam, the L5-S1 disc space is assigned to axial image 27 of 28. Alignment of the lumbar spine is anatomic. Mild loss of height of the superior endplate of L4 is unchanged since CT of August 10, 2022. This is chronic. There is no marrow edema or marrow replacement. There is no intracanalicular mass or fluid collection. The conus terminates at the mid L1 level. This exam is mildly compromised by motion artifact. The spine is imaged to the level of the sacrococcygeal junction on sagittal sequences. Evaluation is suboptimal given the lack of axial images through the sacrum however there is no MR evidence for acute osteomyelitis within the sacrum. The coccyx is not visualized on this examination. Subcutaneous edema of the lower back is in cidentally noted. The sacral decubitus ulcer is not well visualized on this exam. L1-2: The central canal and neural foramen are patent. L2-3: The central canal and neural foramen are patent. L3-4: There is mild facet arthrosis. There is minimal disc bulge. The central canal and neural foramen are patent. L4-5: There is disc bulge with superimposed left paracentral/left foraminal disc protrusion with annular tear. The central canal is patent. There is moderate narrowing of the left lateral recess and left neural foramen. There is mild narrowing of the right neural foramen. L5-S1: Central canal and neural foramen are patent. There is facet arthrosis. IMPRESSION: 1. Suboptimal evaluation of the sacrum, as described above. However, no MR evidence for acute osteomyelitis on this exam. Coccyx not visualized on this exam. If suspicion for coccygeal osteomyelitis, an MRI of the sacrum and coccyx could be obtained. 2. Mild multilevel degenerative changes within the lumbar spine. Parac entral/left foraminal disc protrusion at L4-L5 which results in moderate left lateral recess and left neural foramen. 3. No significant central canal stenosis.
[2023-04-04] MEDS: cefTRIAXone SODIUM 2,000 MG in DEXTROSE 5 % MINI-B 50 ML IV SCH (13:31)
[2023-04-04] MEDS: TUBE FEEDING WATER FLUSH PEG SCH ×2 (15:48→22:39)
[2023-04-04] MEDS: ACETAMINOPHEN SUSP 325 MG/10.15 ML UDC PEG SCH (19:45)
[2023-04-04] MEDS ORDERED: KETOROLAC TROMETHAMINE 15 MG/ML VIAL IV ONE (21:11)
[2023-04-04] MEDS: ATORVASTATIN 40 MG TAB PEG SCH (22:33)
[2023-04-04] MEDS: PEPTAMEN INTENSE VHP 1.0 CAL 1,000 ML BAG PEG SCH (22:35)
[2023-04-05] MEDS: ACETAMINOPHEN SUSP 325 MG/10.15 ML UDC PEG SCH ×3 (02:44→19:54)
[2023-04-05] MEDS: TUBE FEEDING WATER FLUSH PEG SCH ×5 (03:45→21:43)
[2023-04-05] MEDS: ENOXAPARIN 80 MG/0.8 ML SYR SQ SCH ×2 (06:51→17:10)
[2023-04-05 06:56] LABS: Hemoglobin 8.9 g/dl (14.0-18.0); Mean Corpuscular Hemoglobin 21.8 pg (25.0-34.0); Mean Corpuscular Hgb Conc 28.7 g/dL (32.0-36.0); Mean Platelet Volume 11.6 fL (9.4-12.4); Platelet Count 352 K/uL (130-400); RDW Coefficient of Variation 20.2 % (11.5-14.5); RDW Standard Deviation 54.9 fL (36.4-46.3); Red Blood Count 4.08 M/uL (4.70-6.10); White Blood Count 6.41 K/ul (4.8-10.8)
[2023-04-05 07:11] LABS: BUN Creatinine Ratio 101.6 (10-20); Calcium 8.2 mg/dl (8.6-10.3); Creatinine Clr Calc Pharmacy 122.6 ml/min; Est GFR (African American) 119.1 ml/min; Est GFR (Non-African American) 102.7 ml/min; Phosphorus 3.2 mg/dl (2.5-4.9)
[2023-04-05] MEDS: ADVANCED PROBIOTIC 1250 MG CAPSULE PO SCH (08:02)
[2023-04-05] MEDS: METOPROLOL TARTRATE 25 MG TAB PEG SCH ×2 (08:02→19:55)
[2023-04-05] MEDS: FERROUS SULFATE 325 MG/7.4 ML UDP PO SCH (08:02)
[2023-04-05] MEDS: CLOPIDOGREL BISULFATE 75 MG TAB PEG SCH (08:02)
[2023-04-05] MEDS: HYDROmorphone INJ 0.5 MG/0.5 ML SYR IV SCH (08:13)
--- NOTE | 2023-04-05 08:34 | Hospitalist Progress Note ---
Date of Service April 05, 2023 Assessment & Plan (1) Fever: (2) Infected decubitus ulcer: (3) Splenic infarction: (4) Acute hyponatremia: (5) Hematuria: (6) Aortic stenosis: (7) Paroxysmal atrial fibrillation: (8) Peripheral arterial disease: (9) History of CVA (cerebrovascular accident): (10) BPH with obstruction/lower urinary tract symptoms: (11) Type 2 diabetes mellitus: (12) HTN (hypertension): Plan Mr. Turner is a 62 year old gentleman with complicated medical history notable for recurrent stroke c/b right hemiplegia and various other deficiencies reported below, paroxysmal atrial fibrillation, chronic paroxsymal atrial fibrillation, aortic stenosis, severe CAD s/p multiple PCI and CABG, DMTII, chronic decubitus ulcer c/b infection who is admitted due to fever and recurrent infection. Patient stable from all accounts and does not have telemetry requirements at this time; however, expresses severe concern and worry given patient's history will not accept patient transitioning off of telemetry. Discussion had with Cardiology who feels patient is otherwise stable from a cardiac standpoint and would be stable to transition from telemetry unit--however, declines transition. Patient with intermittent fevers. Repeated infectious work up reveals no clear source of infection and abx now for presumptive UTI; however, given subjective and objective signs of pain, as well as nursing reports of discomfort, increased vocalizations, loss of bowels during intensive wound changes, diaphoresis, and tachycardia/tachypnea, suspect fevers are sequelae of lack of analgesia. It appears that the challenge of analgesia adequate for degree of wounds has been addressed historically; however, has been reluctant to "allow" for analgesia despite multiple attempts to ensure patient is comfortable--even denying routine tylenol. Education has been provided regarding the side effects, risks, and benefits of various types of analgesia, as well as what types would be contraindicated in the patient. Despite these efforts, patient has been verbally insulting to nursing staff and insinuated ill-intent of multiple providers. It was expressed clearly that pain must be addressed and Pain management was consulted to assist in this manner. As of 04/05, patient receiving pain regimen of tylenol scheduled and once daily IV Dilaudid. at bedside and calm upon visit this am, denies any new questions and verbalized understanding. #Fever #Uncontrolled Pain -Fevers witnessed tend to correspond to repositioning and wound changes; witnessed on multiple occasions dramatic change in patient status based upon phsyical touch, presence of wound care cart, and various discussions about care--patient demonstrates degree of awareness of surrounds, as well as subjective and objective signs of pain that are being unaddressed despite multiple attempts to educate and communicate with surrogate () -Pain consult -Schedule acetaminophen 650 q8h -Hydromorphone 0.25mg daily with wound care -Plan for ethics consultation given refractory disagreement between (surrogate) and care team regarding treatment of severe pain given patient lack capacity despite attempts to understand/ empathize/ educate about analgesia and degree of pain endured based upon wound severity, as well as consequence of long standing untreated pain: consult placed with formal documentation to follow, if resistance for aforementioned regimen, discuss with Ethics -CTM #Leukocytosis *resolved #Bacteruria #Decubitus ulcer c/b infection Fever on 03/16 due to infected decubitus ulcer, however, has remained stable until recently Patient was stable for discharge awaiting placement and then developed a fever for which work up was done which showed infected sacral ulcer again. Wound culture growing MRSA sensitive to vancomycin and daptomycin. General surgery was consulted-no plans for debridement. Wound Care- was off of wound vac to allow peripheral healing, vac placed once more on 03/23 then removed 04/01 2/2 maceration Blood Cultures negative, UA questionable Discontinue Zosyn, Daptomycin Infectious work up negative, UA collected s/p abx; wound culture without overt infection, NGTD blood cultures -Complete 5 day course of CTX iso fevers/leukocytosis/bacteruria and barajas in [id number] -Encourage barajas hygiene and maintenance -Pain control as above #Hypernatremia -FWD 2L this am; received IV lasix given congestion/crackles and CXR suggestive of such, FW loss > input, as well as insensible losses -Increase FWF q4h, hold further lasix, continue to assess volume status, BMP in am #Pulmonary Edema *improved #Pleural Effusions *improved Pt occasionally sounds more wet than usual Chest XRAY ordered 03/25- noted progressing pulmonary edema, pleural effusions No increased oxygen need at this time, currently on RA Continue suctioning as able Continue to monitor volume status Respiratory doesn't feel there are further treatments/chest physio/other modalities to optimize status at 's request #Eye discharge *resolved recurrent eye discharge, especially in left eye Complete course of poly trim for eyes, no further conjunctival injection or discharge noted #Acute splenic infarct #Chronic renal infarcts Noted on CT Abd/pelvis: "an acute splenic infarct measuring up to 6 mm with chronic renal infarcts and cortical scarring again noted." Continue therapeutic Lovenox Previous provider discussed with surgery on 03/17/2023: No further intervention needed for acute splenic infarct #Hyponatremia #Hypomagnesia replete as needed Currently resolved. #Hematuria *resolved Trent hematuria noted in the facility Likely secondary to trauma due to Barajas catheter CT scan of the chest and pelvis did show nonspecific thickening of the bladder wall Urine culture negative, Hematuria resolved Lovenox resumed without recurrence of hematuria CBC remains stable #Aortic Stenosis H/O severe aortic stenosis Stable #Paroxysmal Atrial Fibrillation As per prior provider On the night of December 07 ; patient converted to atrial fibrillation with rapid ventricular response. He was startedamiodarone drip as per cardiology recommendation Converted back to sinus rhythm on December 08 after 5 hours. Repeat echocardiogram was done; found to have moderately reduced EF of 35 to 40% with severe Rate remains controlled without any cardiac symptoms -- Continue amiodarone, metoprolol On therapeutic dose of Lovenox SQ for anticoagulation #Hx of CVA History of recurrent CVA despite DAPT and anticoagulation therapy Chronic right hemiplegia/left arm paralysis/mostly nonverbal/expressive aphasia/dysphagia with PEG tube Continue statin, Plavix/Lovenox #BPH/LUTS Barajas in place Continue tamsulosin. #DMII A1c of 6.9 on 09/26. Continue Lantus, sliding scale insulin. Increased basal dosing given increased glucose (10 U bid to 18 unit bid), adjust as necessary #HTN BP overall stable. Continue metoprolol. Resume lisinopril if BP remains high--pressure liable #Right heel wound Wound culture showed Corynebacterium species Completed antibiotics on 03/06/2023 as per the ID recommendation. Continue wound care Diet: has PEG DVT prophylaxis: Therapeutic anticoagulation with Lovenox Disposition-pt medically stable, bed search per Admission and Anticipated Discharge Date Admission Date: March 02, 2023 Subjective NAEO; receiving regimen and scheduled medications without resistance at bedside, answered questions regarding labs, verbalized understanding, denied any new concerns this am Review of Systems Review of Systems: Unobtainable due to cognitive status Physical Exam Constitutional: WD/WN, vitals as above Respiratory: normal respiratory effort, lungs clear to auscultation Cardiovascular: RRR, no murmur, no edema Gastrointestinal (Abdomen): normal bowel sounds, soft, nontender, no hepatosplenomegaly Results & Data Results & Data Vital Signs (Past 12 Hours) Vital Signs Temp Pulse Pulse Resp BP Pulse Ox O2 Del Method 04/05/23 07:44 Room Air 04/05/23 07:38 37.5 C 74 18 125/75 93 Room Air 04/05/23 03:00 Room Air 04/05/23 03:00 36.9 C 69 18 116/74 93 Room Air 04/04/23 22:01 75 04/05/23 00:25 37.5 C 64 18 109/68 96 Room Air Laboratory Results Short CBC 04/04/23 04/05/23 Range/Units 08:14 06:04 WBC 6.37 6.41 (4.8-10.8) K/ul Hgb 8.9 L 8.9 L (14.0-18.0) g/dl Hct 31.3 L 31.0 L (42.0-52.0) % Plt Count 370 352 (130-400) K/uL BMP 04/04/23 04/05/23 08:14 06:04 Sodium 146 H 147 H Potassium 4.0 4.0 Chloride 113 H 115 H Carbon Dioxide 28 27 BUN 47 H 65 H Creatinine 0.54 L 0.64 Glucose 179 H 214 H Calcium 8.3 L 8.2 L Medications Administered Home Medications Medication Instructions Recorded Confirmed Last Taken nitroglycerin 0.4 mg sublingual 0.4 mg sublingual DIRECTED PRN 08/09/19 03/02/23 12/17/21 08:00 tablet Chest Pain tamsulosin 0.4 mg capsule 0.4 mg PO HS 01/11/21 03/02/23 12/17/21 08:00 atorvastatin 80 mg tablet 80 mg feeding tube QPM 05/17/21 03/02/23 Unknown clopidogrel 75 mg tablet (Plavix) 75 mg feeding tube QAM 11/17/22 03/02/23 Unknown enoxaparin 120 mg/0.8 mL 70 mg subcut Q12 11/17/22 03/02/23 Unknown subcutaneous syringe ferrous sulfate 325 mg (65 mg 325 mg PO QAM 11/17/22 03/02/23 Unknown iron) tablet,delayed release lisinopril 5 mg tablet 5 mg feeding tube DAILY 11/17/22 03/02/23 Unknown Tube Feeding Water Flush 100 ml PEG Q6H 30 days 02/24/23 03/02/23 Unknown acetaminophen 325 mg/10.15 mL oral 650 mg (20.3 mL) PEG Q6H PRN fever 02/24/23 03/02/23 Unknown suspension or pain 30 days #300 mL amiodarone 200 mg tablet 200 mg PEG BIDM 30 days #60 tabs 02/24/23 03/02/23 Unknown cholestyramine-aspartame 4 gram 4 g PO BID@1000,2200 30 days #60 ea 02/24/23 03/02/23 Unknown oral powder for susp in a packet (Prevalite) insulin aspart U-100 100 unit/mL 1 unit (0.01 mL) SC BID@1130,1630 02/24/23 03/02/23 Unknown subcutaneous solution (Novolog 30 days #100 mL U-100 Insulin aspart) insulin aspart U-100 100 unit/mL 1 unit (0.01 mL) SC DAILY@0730 30 02/24/23 03/02/23 Unknown subcutaneous solution (Novolog days #100 mL U-100 Insulin aspart) insulin aspart U-100 100 unit/mL 1 unit (0.01 mL) SC DAILY@2000 30 02/24/23 03/02/23 Unknown subcutaneous solution (Novolog days #100 mL U-100 Insulin aspart) magnesium oxide 400 mg (241.3 mg 400 mg PEG BID 30 days #60 tabs 02/24/23 03/02/23 Unknown magnesium) tablet metronidazole 500 mg tablet 500 mg feeding tube Q8 9 days #27 02/24/23 03/02/23 Unknown tabs miconazole nitrate 2 % topical 1 applic EXT PRN PRN fungal rash 02/24/23 03/02/23 Unknown powder (Desenex) 30 days #85 grams multivit and minerals-ferrous 15 ml PEG QAM 30 days #450 mL 02/24/23 03/02/23 Unknown gluconate 9 mg iron/15 mL oral liquid (Centrum) nystatin 100,000 unit/gram topical 1 applic EXT BID 14 days #15 grams 02/24/23 03/02/23 Unknown cream sulfamethoxazole 200 20 ml feeding tube Q12 9 days #360 02/24/23 03/02/23 Unknown mg-trimethoprim 40 mg/5 mL oral mL suspension tamsulosin 0.4 mg capsule 0.4 mg PEG QAM #30 caps 02/24/23 03/02/23 Unknown insulin glargine 100 unit/mL 16 unit SC BID@0830,2000 03/02/23 03/02/23 Unknown subcutaneous solution (Lantus U-100 Insulin) Active Medications Generic Name Dose Route Start Last Admin Trade Name Freq PRN Reason Stop Dose Admin Acetaminophen 650 mg 04/04/23 11:00 04/05/23 02:44 Acetaminophen Susp 325 Mg/10.15 Ml Udc PEG 05/04/23 10:59 650 mg Q8H SUMA Administration Amiodarone HCl 200 mg 04/02/23 17:00 04/04/23 16:39 Amiodarone 200 Mg Tab PEG 05/02/23 16:59 200 mg BIDM SUMA Administration Atorvastatin Calcium 80 mg 03/09/23 21:00 04/04/23 22:33 Atorvastatin 40 Mg Tab PEG 06/10/23 20:59 80 mg QPM SUMA Administration Clopidogrel Bisulfate 75 mg 03/10/23 09:00 04/05/23 08:02 Clopidogrel Bisulfate 75 Mg Tab PEG 04/09/23 08:59 75 mg QAM SUMA Administration Enoxaparin Sodium 70 mg 04/02/23 18:00 04/05/23 06:51 Enoxaparin 80 Mg/0.8 Ml Syr SQ 06/10/23 17:59 70 mg Q12H SUMA Administration Ferrous Sulfate 325 mg 03/05/23 11:00 04/05/23 08:02 Ferrous Sulfate 325 Mg/7.4 Ml Udp PO 06/10/23 10:59 325 mg QAM SUMA Administration Hydromorphone HCl 0.25 mg 04/04/23 11:00 04/05/23 08:13 Hydromorphone Inj 0.5 Mg/0.5 Ml Syr IV 04/18/23 10:59 0.25 mg DAILY SUMA Administration Ceftriaxone Sodium 2,000 mg/ 50 mls @ 100 mls/hr 04/03/23 13:30 04/04/23 14:21 Dextrose IV 04/11/23 13:29 Infused Q24H SUMA Infusion Protocol Insulin Aspart 0 units 03/02/23 07:30 04/04/23 21:35 Insulin Aspart Per Unit Charge SC 04/17/23 07:29 1 units ACHS SUMA Administration Insulin Glargine 10 units 04/02/23 09:00 04/04/23 21:36 Lantus Per Unit Charge SC 05/02/23 08:59 10 units BID SUMA Administration Lactobacillus Acidophilus 2 cap 03/13/23 09:00 04/05/23 08:02 Advanced Probiotic 1250 Mg Capsule PO 06/10/23 08:59 2 cap DAILY SUMA Administration Metoprolol Tartrate 25 mg 03/09/23 21:00 04/05/23 08:02 Metoprolol Tartrate 25 Mg Tab PEG 06/10/23 20:59 25 mg BID SUMA Administration Nutritional Formula 1,000 ml 04/02/23 12:00 04/04/23 22:35 Peptamen Intense Vhp 1.0 Checo 1,000 Ml Bag PEG 05/02/23 11:59 1,000 ml .See Protocol SUMA Administration Protocol
[2023-04-05] MEDS: LANTUS PER UNIT CHARGE SC SCH ×2 (09:51→21:15)
[2023-04-05] MEDS: INSULIN ASPART PER UNIT CHARGE SC SCH ×4 (09:51→21:20)
[2023-04-05] MEDS: AMIODARONE 200 MG TAB PEG SCH ×2 (10:49→17:10)
[2023-04-05] MEDS: ATORVASTATIN 40 MG TAB PEG SCH (19:55)
[2023-04-05] MEDS: PEPTAMEN INTENSE VHP 1.0 CAL 1,000 ML BAG PEG SCH (21:15)
[2023-04-06] MEDS: TUBE FEEDING WATER FLUSH PEG SCH ×6 (02:09→23:25)
[2023-04-06] MEDS: ENOXAPARIN 80 MG/0.8 ML SYR SQ SCH ×2 (05:28→17:48)
[2023-04-06] MEDS: ACETAMINOPHEN SUSP 325 MG/10.15 ML UDC PEG SCH ×3 (05:28→20:22)
[2023-04-06 06:14] LABS: Hematocrit (blood only) 32.9 % (42.0-52.0); Hemoglobin 9.1 g/dl (14.0-18.0); Mean Corpuscular Hemoglobin 21.5 pg (25.0-34.0); Mean Corpuscular Hgb Conc 27.7 g/dL (32.0-36.0); Mean Corpuscular Volume 77.6 fL (80.0-100.0); Mean Platelet Volume 11.5 fL (9.4-12.4); Platelet Count 371 K/uL (130-400); RDW Coefficient of Variation 20.1 % (11.5-14.5); RDW Standard Deviation 54.5 fL (36.4-46.3); Red Blood Count 4.24 M/uL (4.70-6.10)
[2023-04-06 06:32] LABS: BUN Creatinine Ratio 103.6 (10-20); Calcium 8.3 mg/dl (8.6-10.3); Creatinine Clr Calc Pharmacy 140.1 ml/min; Est GFR (African American) 125.8 ml/min; Est GFR (Non-African American) 108.5 ml/min; Phosphorus 2.5 mg/dl (2.5-4.9); Potassium 3.9 mmol/L (3.5-5.1)
[2023-04-06] MEDS: [UNRECOGNIZED DRUG - REMARK] SCH (09:15)
[2023-04-06] MEDS: AMIODARONE 200 MG TAB PEG SCH ×2 (09:33→17:48)
[2023-04-06] MEDS: CLOPIDOGREL BISULFATE 75 MG TAB PEG SCH (09:33)
[2023-04-06] MEDS: METOPROLOL TARTRATE 25 MG TAB PEG SCH ×2 (09:33→20:20)
[2023-04-06] MEDS: ADVANCED PROBIOTIC 1250 MG CAPSULE PO SCH (09:34)
[2023-04-06] MEDS: FERROUS SULFATE 325 MG/7.4 ML UDP PO SCH (09:35)
[2023-04-06] MEDS: HYDROmorphone INJ 0.5 MG/0.5 ML SYR IV SCH (09:38)
--- NOTE | 2023-04-06 09:40 | Hospitalist Progress Note ---
Date of Service April 06, 2023 Assessment & Plan (1) Fever: (2) Infected decubitus ulcer: (3) Splenic infarction: (4) Acute hyponatremia: (5) Hematuria: (6) Aortic stenosis: (7) Paroxysmal atrial fibrillation: (8) Peripheral arterial disease: (9) History of CVA (cerebrovascular accident): (10) BPH with obstruction/lower urinary tract symptoms: (11) Type 2 diabetes mellitus: (12) HTN (hypertension): Plan Mr. Turner is a 62 year old gentleman with complicated medical history notable for recurrent stroke c/b right hemiplegia and various other deficiencies reported below, paroxysmal atrial fibrillation, chronic paroxsymal atrial fibrillation, aortic stenosis, severe CAD s/p multiple PCI and CABG, DMTII, chronic decubitus ulcer c/b infection who is admitted due to fever and recurrent infection. Patient with intermittent fevers. Repeated infectious work up reveals no clear source of infection and abx now for presumptive UTI; however, given subjective and objective signs of pain, as well as nursing reports of discomfort, increased vocalizations, loss of bowels during intensive wound changes, diaphoresis, and tachycardia/tachypnea, suspect fevers are sequelae of lack of analgesia. It appears that the challenge of analgesia adequate for degree of wounds has been addressed historically; however, has been reluctant to "allow" for analgesia despite multiple attempts to ensure patient is comfortable--even denying routine tylenol. Education has been provided regarding the side effects, risks, and benefits of various types of analgesia, as well as what types would be contraindicated in the patient. Despite these efforts, patient has been verbally insulting to nursing staff and insinuated ill-intent of multiple providers. It was expressed clearly that pain must be addressed and Pain management was consulted to assist in this manner. As of 04/05, patient receiving pain regimen of tylenol scheduled and once daily IV Dilaudid. at bedside and calm upon visit this am, denies any new questions and verbalized understanding. After a plan being put in place for a couple of days with improvement, today there is again pushback with using additional pain medication as needed for wound changes. Updated her that ethics and office of aging had been contacted to try and help her understand these developments behind the scenes and ensure she understood the gravity of the concerns. She became unreasonably asking about her legitimacy to make decisions and I did not engage further in the conversation or confirm she was being removed as his surrogate. I did let her know we would need to have a more clear discussion, preferably with other professionals to support for a multi-disciplinary approach. #Fever #Uncontrolled Pain -Fevers witnessed tend to correspond to repositioning and wound changes; wit nessed on multiple occasions dramatic change in patient status based upon physical touch, presence of wound care cart, and various discussions about care--patient demonstrates degree of awareness of surrounds, as well as subjective and objective signs of pain that are being unaddressed despite multiple attempts to educate and communicate with surrogate () -Pain consult -Schedule acetaminophen 650 q8h -Hydromorphone 0.25mg daily with wound care --declined today -Plan for ethics consultation given refractory disagreement between (surrogate) and care team regarding treatment of severe pain given patient lack capacity despite attempts to understand/ empathize/ educate about analgesia and degree of pain endured based upon wound severity, as well as consequence of long standing untreated pain: consult placed with formal documentation to follow, if resistance for aforementioned regimen -discussed consultation note and thoughts today with Dr White and updated legal inbound sales representative for the hospital on developments. -at the end of the day, it would not be ideal to remove the as surrogate, and hope to be able to find a positive way forward with attempts to educate and do the best we can to provide care for patient. Suggestion was made that given all of the mistrust, would it be reasonable to consider a transfer to another acute care hospital. Was not able to have any further conversations with his who requested I be removed from her 's care. Out of respect for this request, alternative arrangements will be made for another provider to see him. Patient advocate should be involved tomorrow and is aware to my understanding. (see additional care transition note) -etiologies for fever include but not limited to return of infection, acute VTE given bedbound status and ongoing inflammation (no swollen extremities, tachycardia or hypoxia present making this less likely), ACS-will obtain EKG not on file this admission, neoplastic process, vasculitis, etc. #Leukocytosis *resolved #Bacteruria #Decubitus ulcer c/b infection Fever on 03/16 due to infected decubitus ulcer, however, has remained stable until recently Patient was stable for discharge awaiting placement and then developed a fever for which work up was done which showed infected sacral ulcer again. Wound culture growing MRSA sensitive to vancomycin and daptomycin. General surgery was consulted-no plans for debridement. Wound Care- was off of wound vac to allow peripheral healing, vac placed once more on 03/23 then removed 04/01 2/2 maceration Blood Cultures negative, UA questionable Discontinue Zosyn, Daptomycin Infectious work up negative, UA collected s/p abx; wound culture without overt infection, NGTD blood cultures -Complete 5 day course of CTX iso fevers/leukocytosis/bacteruria and barajas in [id number] stopped after UCx results -Encourage barajas hygiene and maintenance -Pain control as above -reconsult ID for persistent fevers #Hypernatremia -FWD 2L this am; received IV lasix given congestion/crackles and CXR suggestive of such, FW loss > input, as well as insensible losses -Increase FWF q4h, hold further lasix, continue to assess volume status, BMP in am #Pulmonary Edema *improved #Pleural Effusions *improved Pt occasionally sounds more wet than usual Chest XRAY ordered 03/25- noted progressing pulmonary edema, pleural effusions No increased oxygen need at this time, currently on RA Continue suctioning as able Continue to monitor volume status Respiratory doesn't feel there are further treatments/chest physio/other modalities to optimize status at 's request Continue Lasix 20mg PEG daily #Eye discharge *resolved recurrent eye discharge, especially in left eye Complete course of poly trim for eyes, no further conjunctival injection or discharge noted #Acute splenic infarct #Chronic renal infarcts Noted on CT Abd/pelvis: "an acute splenic infarct measuring up to 6 mm with chronic renal infarcts and cortical scarring again noted." Continue therapeutic Lovenox Previous provider discussed with surgery on 03/17/2023: No further intervention needed for acute splenic infarct #Hyponatremia #Hypomagnesia replete as needed Currently resolved. Monitor for an improvement in Na from 146 after an increase in free water flushes and with ongiong lasix. #Hematuria *resolved Trent hematuria noted in the facility Likely secondary to trauma due to Barajas catheter CT scan of the chest and pelvis did show nonspecific thickening of the bladder wall Urine culture negative, Hematuria resolved Lovenox resumed without recurrence of hematuria CBC remains stable #Aortic Stenosis H/O severe aortic stenosis chroinc, Stable but need to closely monitor volume status #Paroxysmal Atrial Fibrillation As per prior provider On the night of December 07 ; patient converted to atrial fibrillation with rapid ventricular response. He was startedamiodarone drip as per cardiology recommendation Converted back to sinus rhythm on December 08 after 5 hours. Repeat echocardiogram was done; found to have moderately reduced EF of 35 to 40% with severe Rate remains controlled without any cardiac symptoms -- Continue amiodarone, metoprolol On therapeutic dose of Lovenox SQ for anticoagulation #Hx of CVA History of recurrent CVA despite DAPT and anticoagulation therapy Chronic right hemiplegia/left arm paralysis/mostly nonverbal/expressive aphasia/dysphagia with PEG tube Continue statin, Plavix/Lovenox #BPH/LUTS Barajas in place Continue tamsulosin. #DMII A1c of 6.9 on 09/26. Continue Lantus, sliding scale insulin. Increased basal dosing given increased glucose (10 U bid to 18 unit bid), adjust as necessary #HTN BP overall stable. Continue metoprolol. Resume lisinopril if BP remains high--pressure liable #Right heel wound Wound culture showed Corynebacterium species Completed antibiotics on 03/06/2023 as per the ID recommendation. Continue wound care Diet: cont enteral nutrition via PEG with free water flushes as scheduled. DVT prophylaxis: Therapeutic anticoagulation with Lovenox Disposition-pt medically stable, bed search per CM I spent a total [id number] coordinating, documenting, and providing care for this patient excluding time spent in the performance of separately billed services Leda George DO [facility] Hospitalist Admission and Anticipated Discharge Date Admission Date: March 02, 2023 Subjective 63 yo M with chronic medical issues returned from LT[facility] with concerns regarding hyponatremia and hematuria, both of which have resolved. Ongoing concerns for adequate pain control with PRN wound changes Declined by (surrogate) today after multiple recent discussions with providers He appears comfortable during current wound vac application after Tylenol asked if urine is ok and we discussed the reason to continue with low dose lasix given EF 35% and bedbound status with known CXR abnormalities a few days ago. Per microfilmer there is a spot around 4:00 that appears darkened and there is now some evidence of exposed bone in the sacral decubitus Physical Exam Physical Exam: CONSTITUTIONAL: WNWD, vitals as above, NAD, somnolent EYES: closed, sleeping soundly ENT: external ear and nose normal, MMM NECK: trachea midline RESPIRATORY: clear to auscultation bilaterally, no crackles, rales or wheezes, normal respiratory effort CARDIOVASCULAR: regular rate and rhythm, 3/6 ULISES auscultated, no gallops or rubs, no JVD, no peripheral edema CHEST: inspection of chest was normal GASTROINTESTINAL: soft, nontender, no guarding MUSCULOSKELETAL: somnolent, cannot assess, head is normocephalic and atraumatic SKIN: warm and dry, sacral decub stage IV present, good granulation tissue present. Some exposed bone within. NEUROLOGIC: somnolent and in lateral decubitus position, cannot assess Results & Data Results & Data Vital Signs (Past 12 Hours) Vital Signs Temp Pulse Pulse Resp BP Pulse Ox O2 Del Method 04/06/23 07:33 36.8 C 79 18 119/74 95 Room Air 04/06/23 06:01 80 04/06/23 04:20 36.7 C 83 20 149/77 H 97 Room Air 04/06/23 03:26 Room Air 04/05/23 22:01 72 04/05/23 23:56 36.8 C 82 20 130/72 96 Room Air Laboratory Results Short CBC 04/06/23 Range/Units 05:22 WBC 7.30 (4.8-10.8) K/ul Hgb 9.1 L (14.0-18.0) g/dl Hct 32.9 L (42.0-52.0) % Plt Count 371 (130-400) K/uL BMP 04/06/23 05:22 Sodium 146 H Potassium 3.9 Chloride 119 H Carbon Dioxide 27 BUN 58 H Creatinine 0.56 L Glucose 204 H Calcium 8.3 L Medications Administered Current Inpatient Medications Acetaminophen (Acetaminophen Susp 325 Mg/10.15 Ml Udc) 650 mg PEG Q8H [facility] Stop: 05/04/23 10:59 Last Admin: 04/06/23 05:28 Dose: 650 mg Amiodarone HCl (Amiodarone 200 Mg Tab) 200 mg PEG BIDM [facility] Stop: 05/02/23 16:59 Last Admin: 04/05/23 17:10 Dose: 200 mg Artificial Tears (Artificial Tears) 1 drops OPB QID PRN PRN Reason: Dryness Stop: 06/10/23 12:17 Atorvastatin Calcium (Atorvastatin 40 Mg Tab) 80 mg PEG QPM [facility] Stop: 06/10/23 20:59 Last Admin: 04/05/23 19:55 Dose: 80 mg Clopidogrel Bisulfate (Clopidogrel Bisulfate 75 Mg Tab) 75 mg PEG QAM [facility] Stop: 06/10/23 08:59 Last Admin: 04/05/23 08:02 Dose: 75 mg Enoxaparin Sodium (Enoxaparin 80 Mg/0.8 Ml Syr) 70 mg SQ Q12H [facility] Stop: 06/10/23 17:59 Last Admin: 04/06/23 05:28 Dose: 70 mg Ferrous Sulfate (Ferrous Sulfate 325 Mg/7.4 Ml Udp) 325 mg PO QAM [facility] Stop: 06/10/23 10:59 Last Admin: 04/05/23 08:02 Dose: 325 mg Hydromorphone HCl (Hydromorphone Inj 0.5 Mg/0.5 Ml Syr) 0.25 mg IV DAILY [facility] Stop: 04/18/23 10:59 Last Admin: 04/05/23 08:13 Dose: 0.25 mg Insulin Aspart (Insulin Aspart Per Unit Charge) 0 units SC ACHS [facility] Stop: 04/17/23 07:29 Last Admin: 04/05/23 21:20 Dose: Not Given Insulin Glargine (Lantus Per Unit Charge) 18 units SC BID [facility] Stop: 05/05/23 20:59 Last Admin: 04/05/23 21:15 Dose: 18 units Lactobacillus Acidophilus (Advanced Probiotic 1250 Mg Capsule) 2 cap PO DAILY [facility] Stop: 06/10/23 08:59 Last Admin: 04/05/23 08:02 Dose: 2 cap Metoprolol Tartrate (Metoprolol Tartrate 25 Mg Tab) 25 mg PEG BID [facility] Stop: 06/10/23 20:59 Last Admin: 04/05/23 19:55 Dose: 25 mg Miscellaneous (Peptamen Stop Order) 1 each N/A DAILY@0800 [facility] Stop: 05/06/23 07:59 Last Admin: 04/06/23 09:15 Dose: 1 each Nutritional Formula (Peptamen Intense Vhp 1.0 [place] 1,000 Ml Bag) 1,000 ml PEG .See Protocol [facility]; Protocol Stop: 05/02/23 11:59 Last Admin: 04/05/23 21:15 Dose: 1,000 ml Polyethylene Glycol (Polyethylene (Miralax) 17 Gm Pack) 17 gm PO DAILY PRN PRN Reason: Constipation Stop: 04/16/23 16:11 Sterile Water (Tube Feeding Water Flush) 150 ml PEG Q4H [facility] Stop: 05/05/23 08:29 Last Admin: 04/06/23 05:28 Dose: 150 ml
[2023-04-06] MEDS: INSULIN ASPART PER UNIT CHARGE SC SCH ×4 (09:44→20:18)
[2023-04-06] MEDS: LANTUS PER UNIT CHARGE SC SCH ×2 (09:44→20:18)
[2023-04-06] MEDS: FUROSEMIDE 20 MG TAB PO SCH (10:55)
--- NOTE | 2023-04-06 11:46 | Communication Note ---
Date of Service: April 06, 2023 ethics consult note: case first dw primary hospitalist on 04/04, chart reviewed then, case d/w pain management that night as well. yesterday, earlier today had discussions with multiple members of ethics committee source of ethics consult is concern about the disconnect between autonomy ( as pt's surrogate decision maker not wanting him to have any pain medicine) and nonmaleficence (pt appearing to have significant pain from sacral ulcer especially at time of dressing changes/wound care but also to some degree around the clock). autonomy: appears that pt does not have capacity to make his own decisions. is his surrogate decision maker. now allowing some degree of a pain regimen, previously was not. situation concerning -- normally in [place] "autonomy rules the day" however in this case his surrogate decision maker is expressing a decision that is extremely unusual for a patient to make on their own if they have capacity: ie it is extremely rare for a patient to express a desire of suffering/pain of their own volition - in discussions with the committee we had an aggregate of 3 such cases recalled across all of our c ollective experience - all three were in the context of a deeply held almost Puritanical view of suffering as gain/as necessary in relationship to their reymundo - and all three had this view/reymundo/protestant reasons for their decisions expressed in discussions regarding their situation. this does not appear to be the case in this situation, as no such reason for refusal of pain control has been expressed (rather, it apparently has been in concern of sedation or overdose). right now the situation is tenuously remedied as the patient is receiving some degree of pain control; if pain is dynamic and the situation for pain control remains static, OR if the were to resume refusals, the committee raised the following as possible "education gap" situations that might be helpful: reviewing rational and safe use of pain meds and all the inbuilt checks and balances thereto (has been reviewed, but when emotions run high sometimes it takes multiple iterations to allow true learning to set in), discussion of how we are able to see signs of pain in a neurologically impaired individual (ie it's possible she's not as keenly aware of the suffering that our team is perceiving), or seeing if there are other fears or beliefs that she is holding onto that have not been addressed. if it is simply an issue of mistrust, could also pursue the possibility that she might trust another facility more. but again we as the committee express doubt that the patient himself (barring some degree of a deeply held protestant penchant for suffering that has not been expressed) would truly express this as his own autonomy beneficence - pain control / wound care appear beneficial to his current situation nonmaleficence - team expresses concern that he is having suffering that could be better alleviated with minimal risk of harm justice - pt unable to speak on his own, is at the discretion of his surrogate decision maker - see above; would be helpful if he had directly expressed his wishes / desires previously to allow them to be acted upon, but this does not appear to be the case in this situation essentially this pits autonomy against nonmaleficence, but with the added concern that his surrogate autonomy may be acting out of concert with what "an average person" would express in a similar situation, without a clear explanation as to why his desires would be out of step with an average person
--- NOTE | 2023-04-06 13:36 | Communication Note ---
Date of Service: April 06, 2023 TRANSITION OF CARE NOTE: 63-year-old man with multiple chronic progressed medical problems including recurrent stroke complicated by right hemiplegia and various other deficiencies and ability to communicate including expressive aphasia who was recently admitted November 17 to February 24 for sacrococcygeal osteomyelitis. He received 6 weeks of antibiotics per infectious disease recommendation and was eventually discharged to [facility] facility. He was readmitted out of concerns for hematuria noted in the Barajas catheter and progressive hyponatremia and hyperkalemia with a sodium of 128 when he was readmitted on March 02 for this current admission. During the last admission, which was close to 100 days, there was an exhaustive search for a halfway care facility that was agreeable to the patient's surrogate, his Nasreen. Per the case management notes, after arrival to [facility] staff reported "the had asked for pt to be transferred shortly after he arrived to their facility." There were multiple comments made Nasreen last admission surrounding issues of trust and blame being placed on this hospital for his sacral decubitus ulcer. She expressed to me at length issues with trust of the nursing staff regarding standard care practices for skin and wounds and administration of as needed pain medication, which is within their scope. There was frustration from nursing staff on almost a daily basis that there was pain not adequately controlled. In an attempt to help this, I tried to address her trust issue and put the control in her hands with tylenol and tramadol. It was not successful as pain medication was later declined, but this is important to illustrate that as providers we have tried to address her mistrust, continue to spend time guiding, educating, calming her down. She was tearful and appeared emotionally overwhelmed most times I spoke with her. She asked for a hug at one point, which I gave her, and asked that she please take care of herself. She later became a patient after having a seizure at the bedside during his last stay and left the ER prematurely to head back up to his room. When I found her in the [facility] waiting room, she was sobbing hysterically without any shoes on and a peripheral IV still in her arm. The nurses guided her back to the room and helped her. Even per case management note on 04/04, Nasreen was appearing angry and questioning motives of the case management coordinator, and then expressed to her she felt the RNs were making comments that were making her feel like she didn't care that Deja was in pain. During this admission his hyponatremia has been addressed and he is now borderline hypernatremic. Nephrology was initially on board and felt this may have been related to recent Bactrim administration. His hematuria was thought 2/2 barajas trauma and resolved shortly after admission. A CT scan of the pelvis revealed ongoing sacral osteomyelitis and no evidence of hydronephrosis or involvement of the upper urinary tract. Hematuria resolved without any drop in hemoglobin. Lovenox was restarted with Hb stable and no further signs of hematuria today in the barajas catheter. He continued to receive ongoing wound care for his stage IV sacral wound, including cefepime and daptomycin which were stopped on 03/06. He spiked a fever to 38.7 on 03/11. He was given a 10 day course of broad spectrum abx including dapto and zosyn with persistent fevers. Per prior note, the last hospitalist observed a dressing change on 04/04 where the patient became flushed, tachypneic, tachycardic and febrile once the wound cart was brought to bedside. His expressed concerns over pain medication. It was explained this was appropriate give the severity of the wound and the cleaning needed. The effect was positive, however, continued to express concerns despite this and further discussion between she and the hospitalist where she said he was too zonked. They further discussed the important benefit to treating his pain with the appropriate amount of analgesia especially during wound dressing changes, and that if he were able to speak for himself he would likely agree to efforts to have his pain adequately controlled. It was documented that Nasreen agreedbut then went back to refusing medications, which was a similar situation to my experience with her during the previous admission. A pain specialist was asked to weigh in. Per Dr. Estrada there was a discussion educating Nasreen on the pharmacokinetics or both Dilaudid and Tylenol and the need for such medications. Scheduled Tylenol 650mg via PEG q8h and dilaudid 0.25mg IV once daily with dressing changes was recommended and ordered and were given for the last couple of days without incident. Upon entering the room today his wound vac was being changed and he appeared comfortable after a dose of tylenol. We discussed her feeling on the dilaudid being given for wound changes and she expressed to me, as she did earlier to the RN who tried to give it, that no additional pain medication would be given. I explained that we would need to have a more comprehensive discussion with other support systems in the hospital including the ethics committee about a way forward given the continued disagreement on this front. I also explained that the office of aging and hospital legal had been contacted out of concerns for adequate pain coverage with ongoing declining of PRN medication to ensure she knew what was being discussed prior to my arrival today. She became upset and I explained to Nasreen that I was unable to devote the time for a full conversation today, but will try to schedule that at some point this week with her. Will continue to ask nursing staff to clearly document any ongoing uncontrolled pain and any times that additional pain medication is offered but declined, and why to get a better understanding of how to move forward. There continues to be double talk with Nasreen which complicates the care picture. The RN today expressed that she was "rolling her eyes" when she mentioned certain providers listed to care for him. She verbalized to this RN "not to tell Dr. George about the fever today." Per the prior hospitalist she was verbally aggressive and rude to both she and to the pain specialist. She was loud and insinuating that they wanted to hurt Deja. Per Dr. Estrada, she was loud and accusatory "not having nice things to say." Per Dr. Carr, she called the nurses "bitches" and claimed that we didn't know how to place orders. She got loud and then more passive when hospitalist spoke up more in a recent discussion noted above, later noted by the nurses to be pacing and angry. There are distant reports of her becoming combative with staff using her purse, although nothing recent that I am aware of. Despite all the care and attention both nursing staff and providers have given, it doesn't seem to be helping Nasreen, and indirectly is not helping Deja. There has been extensive utilization of case management time and guidance also regarding placement options, which frequently is presented to Nasreen but not the right thing to do for one reason or another. Despite Deja being medically stable, she is not approving of him being taken off telemetry monitoring which continues. I did discuss the case with Dr. White and spent 120 minutes coordinating care including time spent at bedside, review of the record and documentation, and discussion of the care plan and options with providers, nursing staff including supervisors, and case management. Will continue efforts to treat pain, workup and address fever and manage his chronic medical conditions--please see daily progress note.
[2023-04-06] MEDS: ACETAMINOPHEN SUSP 500 MG/15.6 ML UDP PEG STA ×2 (16:20→17:21)
[2023-04-06] MEDS ORDERED: Nursing to Pharmacy Communication SCH (18:00)
[2023-04-06] MEDS: ATORVASTATIN 40 MG TAB PEG SCH (20:19)
[2023-04-06] MEDS: PEPTAMEN INTENSE VHP 1.0 CAL 1,000 ML BAG PEG SCH (20:22)
[2023-04-06] MEDS ORDERED: ALBUMIN 25% 12.5 GM/50 ML VIAL IV ONE (23:45)
[2023-04-07] MEDS: TUBE FEEDING WATER FLUSH PEG SCH ×6 (00:03→20:38)
[2023-04-07] MEDS: ACETAMINOPHEN SUSP 325 MG/10.15 ML UDC PEG SCH ×3 (04:00→20:36)
[2023-04-07 04:31] LABS: A calco-baum cmplx NotReported Not Detected (NotDetected); Bact fragilis Not Reported Not Detected (NotDetected); C auris Not Reported Not Detected (NotDetected); Calbicans Not Reported Not Detected (NotDetected); Candida glabrata Not Reported Not Detected (NotDetected); Candida krusei Not Reported Not Detected (NotDetected); Cneoformans/gatti Not Reported Not Detected (NotDetected); Cparapsilosis Not Reported Not Detected (NotDetected); E cloacae compx Not Reported Not Detected (NotDetected); Efaecalis Not Reported Not Detected (NotDetected); Efaecium Not Reported Not Detected (NotDetected); Enterobacterales Not Reported Not Detected (NotDetected); Escherichia coli Not Reported Not Detected (NotDetected); H influenzae Not Reported Not Detected (NotDetected); K aerogenes Not Reported Not Detected (NotDetected); Koxytoca Not Reported Not Detected (NotDetected); Kpneumoniae grp Not Reported Not Detected (NotDetected); Lmonocyt Not Reported Not Detected (NotDetected); N meningitidis Not Reported Not Detected (NotDetected); P aeruginosa Not Reported Not Detected (NotDetected); Proteus spp Not Reported Not Detected (NotDetected); Salmonella spp Not Reported Not Detected (NotDetected); Smarcescens Not Reported Not Detected (NotDetected); Staph lugdunensis Not Reported Not Detected (NotDetected); Staph spp. Not Reported Not Detected (NotDetected); Staphaureus Not Reported Not Detected (NotDetected); Staphepi Not Reported Not Detected (NotDetected); Stenmaltophilia Not Reported Not Detected (NotDetected); Strep agal(GrpB) Not Reported Not Detected (NotDetected); Strep pneum Not Reported Not Detected (NotDetected); Strep pyog (GrpA) Not Reported Not Detected (NotDetected); Strep spp Not Reported Not Detected (NotDetected)
[2023-04-07] MEDS: ENOXAPARIN 80 MG/0.8 ML SYR SQ SCH ×2 (05:06→18:08)
[2023-04-07 05:43] LABS: Appearance Urine Cloudy (Clear); Bilirubin Urine Negative (Negative); Blood Urine Negative (Negative); Color Urine Yellow; Glucose Urine UA Negative (Negative); Ketones Urine Negative (Negative); Leukocyte Esterase Urine 2+ (Negative); Nitrite Urine Negative (Negative); Protein Urine Negative (Negative); Specific Gravity Urine 1.026 (1.000-1.030); Urobilinogen Urine Negative (Negative)
[2023-04-07 06:06] LABS: Epithelial Cell Urine Auto 0-5 /lpf (0-5); RBC Urine Automated 0-4 /hpf (0-4)
[2023-04-07 06:07] LABS: Bacteria Urine Automated Negative (Negative); Cast Urine Automated 0 /lpf (0-5); WBC Urine Automated >30 /hpf (0-5)
[2023-04-07 06:08] LABS: Uric Acid Crystals Urine Present (None Prsent)
--- NOTE | 2023-04-07 07:19 | XRay Report ---
SINGLE VIEW CHEST CLINICAL HISTORY: Tachypnea. FINDINGS: 2 AP, portable, upright chest radiographs are compared to study dated 04/01/2023. Correlati on is made with chest CT dated 12/30/2022. The examination is degraded by portable technique and patie nt rotation. The patient's head partially obscures the apices. The patient is status post midline st ernotomy. The heart is enlarged noting atherosclerotic calcification of the thoracic aorta. There is pulmonary vascular congestion and mild interstitial edema. This has improved from previous. Left basi lar opacities are again noted. Suspect trace pleural effusions. No pneumothorax is seen. The skeletal structures are osteopenic. Chronic deformity of the right scapula is unchanged. Arthritic change is seen in the shoulders and spine. A gastrostomy tube projects over the left upper quadrant. IMPRESSION: 1. Cardiomegaly with pulmonary vascular congestion and mild interstitial edema. This has improved fro m 04/01/2023. 2. Left basilar opacities are similar to previous. This could represent scarring/atelectasis versus a n infectious/inflammatory pneumonitis. Clinical correlation will be required. 3. Suspect small pleural effusions. ACT 112: Negative or not required by law. Electronically signed by: Donny Fernando M.D. 04/07/2023 7:18 AM
[2023-04-07] MEDS: [UNRECOGNIZED DRUG - REMARK] SCH (08:00)
[2023-04-07] MEDS: AMIODARONE 200 MG TAB PEG SCH ×2 (08:45→18:08)
[2023-04-07] MEDS: METOPROLOL TARTRATE 25 MG TAB PEG SCH ×2 (08:45→20:37)
[2023-04-07] MEDS: FERROUS SULFATE 325 MG/7.4 ML UDP PO SCH (08:46)
[2023-04-07] MEDS: ADVANCED PROBIOTIC 1250 MG CAPSULE PO SCH (08:46)
[2023-04-07] MEDS: FUROSEMIDE 20 MG TAB PO SCH (08:46)
[2023-04-07] MEDS: INSULIN ASPART PER UNIT CHARGE SC SCH ×4 (08:59→20:36)
[2023-04-07] MEDS: LANTUS PER UNIT CHARGE SC SCH ×2 (08:59→20:37)
[2023-04-07] MEDS: HYDROmorphone INJ 0.5 MG/0.5 ML SYR IV SCH (09:00)
[2023-04-07] MEDS: CLOPIDOGREL BISULFATE 75 MG TAB PEG SCH (10:48)
[2023-04-07] MEDS: DAPTOmycin 500 MG in SYRINGE 0 ML IV SCH (10:49)
[2023-04-07 15:23] LABS: Albumin Globulin Ratio 0.8 (0.9-2); Albumin Level 2.8 gm/dl (3.4-5.0); BUN Creatinine Ratio 88.9 (10-20); Bilirubin,Total 0.2 mg/dl (0.2-1.0); Calcium 8.4 mg/dl (8.6-10.3); Creatinine Clr Calc Pharmacy 124.5 ml/min; Est GFR (African American) 119.9 ml/min; Est GFR (Non-African American) 103.4 ml/min; Globulin 3.6 gm/dl (2.5-4.0); Magnesium 1.9 mg/dl (1.7-2.4); Phosphorus 2.6 mg/dl (2.5-4.9); Potassium 3.9 mmol/L (3.5-5.1); Total Protein 6.4 gm/dl (6.0-8.3)
[2023-04-07 15:35] LABS: Hematocrit (blood only) 31.9 % (42.0-52.0); Mean Corpuscular Hemoglobin 21.8 pg (25.0-34.0); Mean Corpuscular Hgb Conc 28.2 g/dL (32.0-36.0); Mean Corpuscular Volume 77.2 fL (80.0-100.0); Mean Platelet Volume 10.9 fL (9.4-12.4); Platelet Count 351 K/uL (130-400); RDW Coefficient of Variation 20.5 % (11.5-14.5); RDW Standard Deviation 55.8 fL (36.4-46.3); Red Blood Count 4.13 M/uL (4.70-6.10); White Blood Count 10.06 K/ul (4.8-10.8)
[2023-04-07 15:37] LABS: Anisocytosis Present; Basophils # (auto) 0.04 K/uL (0.00-0.20); Basophils % (auto) 0.4 %; Eosinophils # (auto) 0.09 K/uL (0.00-0.50); Eosinophils % (auto) 0.9 %; Hypochromasia Present; Immature Granulocytes # (auto) 0.05 K/uL (0.01-0.20); Immature Granulocytes % (auto) 0.5 %; Lymphocytes # (auto) 1.42 K/uL (1.20-3.40); Lymphocytes % (auto) 14.1 %; Monocytes # (auto) 0.64 K/uL (0.11-0.59); Monocytes % (auto) 6.4 %; Neutrophils # (auto) 7.82 K/uL (1.40-6.50); Neutrophils % (auto) 77.7 %; Ovalocytes 1+; Polychromasia 1+
--- NOTE | 2023-04-07 15:46 | Hospitalist Progress Note ---
Date of Service April 07, 2023 Assessment & Plan (1) Fever: (2) Infected decubitus ulcer: (3) Splenic infarction: (4) Acute hyponatremia: (5) Hematuria: (6) Aortic stenosis: (7) Paroxysmal atrial fibrillation: (8) Peripheral arterial disease: (9) History of CVA (cerebrovascular accident): (10) BPH with obstruction/lower urinary tract symptoms: (11) Type 2 diabetes mellitus: (12) HTN (hypertension): Plan Mr. Turner is a 62 year old gentleman with a complicated medical history notable for recurrent stroke with residual right hemiplegia, chronic paroxysmal atrial fibrillation, aortic stenosis, severe CAD s/p multiple PCIs and CABG, DMII, chronic decubitus ulcer complicated by recurrent infections who is admitted due to fever and recurrent infection. Fever Uncontrolled Pain Pt with occasional fevers, requiring repeated infectious work-ups. Most recent workup Nov - -WBC currently NOT elevated -chest xray 04/06- improved pulmonary vascular congestion and mild interstitial edema, small pleural effusions and noted opacities that are likely scars vs. infectious -repeat blood Cx x2 from 04/06- pending. One blood Cx from 04/01 positive for gram positive bacilli (likely contaminant) -sacral wound Cx from 04/03 growing MRSA -UA from 04/07- noted uric acid crystals, yeast present. Urine Cx 04/07 pending, urica acid level pending with AM labs -c diff 04/07- ordered and pending -respiratory panel 04/07 ordered and pending -AM ESR, CRP, D-dimer, procalcitonin ordered for possible inflammatory/blood clot cause of his fevers. In terms of clots, pt with noted splenic/renal infarcts in the past, recurrent strokes while on DAPT and anticoagulation. -Consider a neoplastic process as well as a possible fever cause- consider sandoval-scanning Started on empiric IV Daptomycin on 04/07 for 04/01 positive blood Cx, MRSA positive sacral wound Cx (noted that sacral wound has persistently grown MRSA) Await repeat blood Cx and urine Cx results, c diff and resp panel. Chest xray less likely infectious, continue to monitor respiratory need/oxygen saturations. Currently saturating well on RA. IV Lasix prn for pulmonary congestion/pleural effusions (one dose on 04/07) Started on diflucan 200mg daily for 14 doses for UA yeast results, continue to monitor qtc (pt also on other prolonging meds). EKG 04/06 with noted qtc of 450, not currently elevated at this time. Daily EKG's while on diflucan for qtc monitoring. Question of whether uncontrolled pain, especially with dressing changes has been causing fevers as well. -Pain management was consulted on 04/04- appreciate recs -recommended acetaminophen 650mg q8h scheduled and IV dialudid 0.25mg daily 15-30min prior to sacral wound dressing changes -Pt has been receiving acetaminophen 650mg q8h scheduled. -Pt was on dilaudid 0.25mg daily scheduled as recommended, but pt's has been declining for the past 2 days (04/06 and 04/07). -Discussion with pt's Nasreen on 04/07. Agreeable to tramadol at dose pt received and tolerated in the past. Per chart review, dose was tramadol 25mg. -Tramadol 25mg daily scheduled in place of previously scheduled dilaudid 0.25mg that has been refusing. -Ethics Committee previously consulted on 04/05 due to pt's 's refusal of ANY pain medications- appreciate recs -recommended that if pain control still an issue OR if the were to resume refusals, repeated attempts to educate on the following should be made: (1) safe use of pain meds (2) hospital checks and balances to help prevent overdoses/ensure safe use of meds (3) pain signs appear differently to medical team from what she as partner/layperson would consider pain in this pt who is unable to communicate (4) digging further into her beliefs/hesitation with providing pain relief that has not been addressed. (5) if issue is medical mistrust, consider pursuing possibility of transferring care to another facility that she trusts more -Ethics committee advised and concluded that is acting out of concert with what this patient would typically choose if he had autonomy (unless pt had a deeply held tenriism belief for suffering that has not been expressed) Pt healthcare science specialist involved, reportedly report was made to Office of Aging and case has also been discussed with the hospital Legal team. Case management also closely involved- appreciate efforts with placement for this patient. Leukocytosis *resolved Bacteruria Decubitus ulcer complicated by infection Fever workup and pain control as noted above General surgery was consulted this admission-no plans for debridement. Wound Care on board- pt occasionally off of wound vac to allow peripheral healing. ID consulted this admission- last recommendation 03/22. Advised at that time to discontinue antibiotics and monitor, with aggressive wound care/ Encourage barajas hygiene and maintenance Consider re-consult to ID for persistent fevers noted above. Hypernatremia Pt's sodium levels persistently elevated over the past 4 days. Consider Nephrology consult in the AM for further recs if persistent. Continue to monitor Pulmonary Edema *improved Pleural Effusions *improved Pt occasionally sounds more wet than usual Chest XRAY ordered 04/06- noted improving pulmonary edema, pleural effusions No increased oxygen need at this time, currently on RA Continue suctioning as able Continue to monitor volume status Respiratory doesn't feel there are further treatments/chest physio/other modalities to optimize status at 's request Continue Lasix 20mg PEG daily, one extra Lasix dose on 04/07 Continue to monitor kidney function while on lasix Eye discharge *resolved recurrent eye discharge, especially in left eye Completed course of poly trim for eyes, no further conjunctival injection or discharge noted Acute splenic infarct Chronic renal infarcts Noted on CT Abd/pelvis: "an acute splenic infarct measuring up to 6 mm with chronic renal infarcts and cortical scarring again noted." Continue therapeutic Lovenox Previous provider discussed with surgery on 03/17/2023: No further intervention needed for acute splenic infarct Hematuria *resolved Trent hematuria noted in the facility prior to this admission Likely secondary to trauma due to Barajas catheter CT scan of the chest and pelvis did show nonspecific thickening of the bladder wall Hematuria resolved Lovenox resumed without recurrence of hematuria CBC remains stable Aortic Stenosis H/O severe aortic stenosis chronic, Stable but need to closely monitor volume status Paroxysmal Atrial Fibrillation As per prior provider On the night of December 07 ; patient converted to atrial fibrillation with rapid ventricular response. He was startedamiodarone drip as per cardiology recommendation Converted back to sinus rhythm on December 08 after 5 hours. Repeat echocardiogram was done; found to have moderately reduced EF of 35 to 40% with severe Rate remains controlled without any cardiac symptoms Continue amiodarone, metoprolol On therapeutic dose of Lovenox SQ for anticoagulation Hx of CVA History of recurrent CVA despite DAPT and anticoagulation therapy Chronic right hemiplegia/left arm paralysis/mostly nonverbal/expressive aphasia/dysphagia with PEG tube Continue statin, Plavix/Lovenox BPH/LUTS Barajas in place Continue tamsulosin. DMII A1c of 6.6 in feb 2023 Continue Lantus, sliding scale insulin. HTN BP overall stable. Continue metoprolol. Resume lisinopril if BP remains high--pressure labile Right heel wound Wound culture showed Corynebacterium species Completed antibiotics on 03/06/2023 as per ID recommendations. Continue wound care Diet: cont enteral nutrition via PEG with free water flushes as scheduled. DVT prophylaxis: Therapeutic anticoagulation with Lovenox CODE STATUS: Full code Disposition-Appreciate CM efforts with placement Admission and Anticipated Discharge Date Admission Date: March 02, 2023 Subjective Pt seen multiple times during the day. Initially in the AM with present at bedside. Discussed pt status, days events from the day prior. Pt states that she likely mixed up the medications tramadol (that pt received in the past) with tylenol. Would like him to get tylenol and is ok with tramadol at the dose that he tolerated before. Later received a message from nursing that would like to discuss pt further. Called , she stated that she was concerned as pt was having increased chest congestion. At bedside, pt did sound congested, chest xray from 04/06 reviewed that showed improved pulmonary edema. reassured, advised lasix dose would be given. Will continue to monitor oxygen requirement. Review of Systems Review of Systems: Unobtainable due to cognitive status Physical Exam Physical Exam: General: moaning when addressed Psych: could not be determined Neuro: difficulty with movements HEENT: NC/AT Chest: Nontender to palpation. CV: RRR, blowing murmur Resp: no increased effort of breathing initially, breath sounds clear Abdomen: Soft, but pt moans whenever it is touched Results & Data Results & Data Vital Signs (Past 12 Hours) Vital Signs Temp Pulse Pulse Resp BP Pulse Ox O2 Del Method 04/07/23 15:10 79 04/07/23 10:50 37.2 C 75 18 126/80 95 Room Air 04/07/23 07:34 78 04/07/23 07:31 37.8 C H 82 16 131/75 93 Room Air
--- NOTE | 2023-04-07 16:31 | Electrocardiogram Report ---
Test Reason : Blood Pressure : / mmHG Vent. Rate : 081 BPM Atrial Rate : 081 BPM P-R Int : 142 ms QRS Dur : 098 ms QT Int : 388 ms P-R-T Axes : 048 046 189 degrees QTc Int : 450 ms Normal sinus rhythm Possible Left atrial enlargement Poor R wave progression, consider anterior [place] vs. lead placement vs. LVH Cannot rule out Inferior infarct (cited on or before 13-OCT-2006) Abnormal ECG When compared with ECG of 08-DEC-2022 03:11, Premature atrial complexes are no longer Present Confirmed by Tucker Pollard [id number] on 04/07/2023 4:31:23 PM Referred By: REFERRED SELF Confirmed By:Bryon Pollard
[2023-04-07] MEDS ORDERED: FUROSEMIDE 40 MG/4 ML VIAL IV ONE (17:41)
[2023-04-07] MEDS: ATORVASTATIN 40 MG TAB PEG SCH (20:37)
[2023-04-07] MEDS: PEPTAMEN INTENSE VHP 1.0 CAL 1,000 ML BAG PEG SCH (20:38)
[2023-04-07 23:44] LABS: Adenovirus PCR Not Detected (NotDetected); Bordetella parapertussis PCR Not Detected (NotDetected); Bordetella pertussis PCR Not Detected (NotDetected); Chlamydia pneumoniae PCR Not Detected (NotDetected); Coronavirus 229E PCR Not Detected (NotDetected); Coronavirus CoV-2 (COVID19)PCR Not Detected (NotDetected); Coronavirus HKU1 PCR Not Detected (NotDetected); Coronavirus NL63 PCR Not Detected (NotDetected); Coronavirus OC43PCR Not Detected (NotDetected); Human Metapneumovirus PCR Not Detected (NotDetected); Influenza A PCR Not Detected (NotDetected); Influenza B PCR Not Detected (NotDetected); Mycoplasma pneumoniae PCR Not Detected (NotDetected); Parainfluenza Virus 1 PCR Not Detected (NotDetected); Parainfluenza Virus 2 PCR Not Detected (NotDetected); Parainfluenza Virus 3 PCR Not Detected (NotDetected); Parainfluenza Virus 4 PCR Not Detected (NotDetected); Respiratory Syncytial VirusPCR Not Detected (NotDetected); Rhinovirus/Enterovirus PCR Not Detected (NotDetected)
[2023-04-08] MEDS: TUBE FEEDING WATER FLUSH PEG SCH ×6 (01:00→20:22)
[2023-04-08 06:07] LABS: Albumin Globulin Ratio 0.8 (0.9-2); Albumin Level 2.7 gm/dl (3.4-5.0); BUN Creatinine Ratio 105.5 (10-20); Bilirubin,Total 0.2 mg/dl (0.2-1.0); C Reactive Protein 5.82 mg/dl (0-0.5); Calcium 8.4 mg/dl (8.6-10.3); Creatinine Clr Calc Pharmacy 142.6 ml/min; Est GFR (African American) 126.7 ml/min; Est GFR (Non-African American) 109.4 ml/min; Globulin 3.5 gm/dl (2.5-4.0); Magnesium 1.9 mg/dl (1.7-2.4); Potassium 3.7 mmol/L (3.5-5.1); Total Protein 6.2 gm/dl (6.0-8.3); Uric Acid 3.8 mg/dl (2.6-7.2)
[2023-04-08 06:17] LABS: Anisocytosis Present; Basophils # (auto) 0.03 K/uL (0.00-0.20); Basophils % (auto) 0.3 %; Eosinophils # (auto) 0.09 K/uL (0.00-0.50); Eosinophils % (auto) 0.9 %; Hematocrit (blood only) 31.8 % (42.0-52.0); Hemoglobin 9.1 g/dl (14.0-18.0); Hypochromasia Present; Immature Granulocytes # (auto) 0.04 K/uL (0.01-0.20); Immature Granulocytes % (auto) 0.4 %; Lymphocytes # (auto) 1.47 K/uL (1.20-3.40); Lymphocytes % (auto) 14.9 %; Mean Corpuscular Hemoglobin 21.6 pg (25.0-34.0); Mean Corpuscular Hgb Conc 28.6 g/dL (32.0-36.0); Mean Corpuscular Volume 75.5 fL (80.0-100.0); Monocytes # (auto) 0.62 K/uL (0.11-0.59); Monocytes % (auto) 6.3 %; Neutrophils # (auto) 7.59 K/uL (1.40-6.50); Neutrophils % (auto) 77.2 %; Ovalocytes 1+; Platelet Count 371 K/uL (130-400); Polychromasia 1+; RDW Coefficient of Variation 20.6 % (11.5-14.5); RDW Standard Deviation 54.8 fL (36.4-46.3); Red Blood Count 4.21 M/uL (4.70-6.10); Tear Drop Cells 1+; White Blood Count 9.84 K/ul (4.8-10.8)
[2023-04-08] MEDS: ENOXAPARIN 80 MG/0.8 ML SYR SQ SCH ×2 (06:21→18:48)
[2023-04-08] MEDS: ACETAMINOPHEN SUSP 325 MG/10.15 ML UDC PEG SCH ×3 (06:21→20:21)
[2023-04-08 06:46] LABS: D Dimer 500 ug/L FEU (0-500)
[2023-04-08] MEDS: [UNRECOGNIZED DRUG - REMARK] SCH (08:00)
[2023-04-08] MEDS ORDERED: FLUCONAZOLE 100 MG TAB PO SCH (09:00)
[2023-04-08] MEDS ORDERED: traMADol HCL 50 MG TABLET PO SCH (09:00)
[2023-04-08] MEDS: METOPROLOL TARTRATE 25 MG TAB PEG SCH ×2 (09:59→20:21)
[2023-04-08] MEDS: FUROSEMIDE 20 MG TAB PO SCH (09:59)
[2023-04-08] MEDS: ADVANCED PROBIOTIC 1250 MG CAPSULE PO SCH (10:00)
[2023-04-08] MEDS: AMIODARONE 200 MG TAB PEG SCH ×2 (10:00→18:47)
[2023-04-08] MEDS: CLOPIDOGREL BISULFATE 75 MG TAB PEG SCH (10:00)
[2023-04-08] MEDS: FERROUS SULFATE 325 MG/7.4 ML UDP PO SCH (10:00)
[2023-04-08] MEDS: DAPTOmycin 500 MG in SYRINGE 0 ML IV SCH (10:03)
[2023-04-08] MEDS: LANTUS PER UNIT CHARGE SC SCH ×2 (10:03→20:26)
[2023-04-08] MEDS: INSULIN ASPART PER UNIT CHARGE SC SCH ×4 (10:03→20:22)
--- NOTE | 2023-04-08 11:11 | Nephrology Consultation ---
Date of Consultation April 08, 2023 Assessment & Plan (1) Hypernatremia: Patient was admitted on March 02 with hyponatremia with a serum sodium of 127. But for the last few days sodium has been steadily rising and is up to 149 now. Hypernatremia by definition he is free water deficit which means he is not getting enough free water. We will recommend to raise the free water flushes to 200 mL every 4 hours. Hold the Lasix at least for today and tomorrow and reassess after looking at the labs in the morning tomorrow. It is very hard to make sense of his physical examination and x-ray findings of his lungs--- pulmonary congestion versus aspiration versus atelectasis. I do not have any problem keeping patient slightly on the dry side with a serum sodium of 145-149. But given the rising trend for the last few days would like to give him just a little bit of free water and hold Lasix. Given his significant neurological deficit and his difficult nutrition/hydration status issues with hypernatremia is unavoidable. Plan Case was discussed with primary team. History of Present Illness Reason for Consultation: Hypernatremia Attending Physician: Nubia Soriano MD History of Present Illness 63-year-old male who has been in the hospital now for more than a month. I have been consulted for hypernatremia. Current sodium is 149 and it has been rising for the last few days. patient with recurrent stroke complicated by right hemiplegia and various other deficiencies and expressive aphasia who was recently admitted November 17 to February 24 for sacrococcygeal osteomyelitis. He received 6 weeks of antibiotics per infectious disease recommendation and was eventually discharged to [place] [facility] facility. He was readmitted out of concerns for hematuria noted in the Hagan catheter and progressive hyponatremia and hyperkalemia with a sodium of 128 when he was readmitted on March 02 for this current admission. It is only the last few days that sodium has been going slightly higher. He had a chest x-ray done which per report showed some pulmonary congestion and he has received some Lasix. But he is also getting 175 mL every 4 hours of free water flushes through his PEG tube. However to me it is hard to tell whether this is pulmonary congestion or recurrent microaspirations. Urine output was 2500 yesterday. I am unable to get any history from the patient as he is nonverbal. is not at the bedside Review of system-----unable to obtain as patient is nonverbal. Physical examination----middle aged white male who is not responsive. He does open eyes on command but goes back to closing eyes instantly. He is not following command otherwise. He is nonverbal to me Appears ill. No overt respiratory distress. Mucous membrane is dry neck is supple no JVD appreciated Chest bilateral occasional rhonchi's and some basilar crackle but very poor inspiratory effort limiting the quality of the exam CVS S1 and S2 regular systolic murmur heard Abdomen is soft nontender Extremities shows no edema and he does have some wounds/ulcers in his lower extremity Neurological multiple neurological deficit including right hemiplegia and expressive aphasia Allergies Allergy/AdvReac Type Severity Reaction Status Date / Time sulfamethoxazole AdvReac Intermediate Verified 03/02/23 04:17 [From Bactrim] trimethoprim [From Bactrim] AdvReac Intermediate Verified 03/02/23 04:17 Home Medications Medication Instructions Recorded Confirmed Type nitroglycerin 0.4 mg sublingual 0.4 mg sublingual DIRECTED PRN 08/09/19 03/02/23 History tablet Chest Pain tamsulosin 0.4 mg capsule 0.4 mg PO HS 01/11/21 03/02/23 History atorvastatin 80 mg tablet 80 mg feeding tube QPM 05/17/21 03/02/23 History clopidogrel 75 mg tablet (Plavix) 75 mg feeding tube QAM 11/17/22 03/02/23 History enoxaparin 120 mg/0.8 mL 70 mg subcut Q12 11/17/22 03/02/23 History subcutaneous syringe ferrous sulfate 325 mg (65 mg 325 mg PO QAM 11/17/22 03/02/23 History iron) tablet,delayed release lisinopril 5 mg tablet 5 mg feeding tube DAILY 11/17/22 03/02/23 History Tube Feeding Water Flush 100 ml PEG Q6H 30 days 02/24/23 03/02/23 Rx acetaminophen 325 mg/10.15 mL oral 650 mg (20.3 mL) PEG Q6H PRN fever 02/24/23 03/02/23 Rx suspension or pain 30 days #300 mL amiodarone 200 mg tablet 200 mg PEG BIDM 30 days #60 tabs 02/24/23 03/02/23 Rx cholestyramine-aspartame 4 gram 4 g PO BID@1000,2200 30 days #60 ea 02/24/23 03/02/23 Rx oral powder for susp in a packet (Prevalite) insulin aspart U-100 100 unit/mL 1 unit (0.01 mL) SC BID@1130,1630 02/24/23 03/02/23 Rx subcutaneous solution (Novolog 30 days #100 mL U-100 Insulin aspart) insulin aspart U-100 100 unit/mL 1 unit (0.01 mL) SC DAILY@0730 30 02/24/23 03/02/23 Rx subcutaneous solution (Novo days #100 mL U-100 Insulin aspart) insulin aspart U-100 100 unit/mL 1 unit (0.01 mL) SC DAILY@199902/24/23 03/02/23 Rx subcutaneous solution (Novo days #100 mL U-100 Insulin aspart) magnesium oxide 400 mg (241.3 mg 400 mg PEG BID 30 days #60 tabs 02/24/23 03/02/23 Rx magnesium) tablet metronidazole 500 mg tablet 500 mg feeding tube Q8 9 days #27 02/24/23 03/02/23 Rx tabs miconazole nitrate 2 % topical 1 applic EXT PRN PRN fungal rash 02/24/23 03/02/23 Rx powder (Desenex) 30 days #85 grams multivit and minerals-ferrous 15 ml PEG QAM 30 days #450 mL 02/24/23 03/02/23 Rx gluconate 9 mg iron/15 mL oral liquid (Centrum) nystatin 100,000 unit/gram topical 1 applic EXT BID 14 days #15 grams 02/24/23 03/02/23 Rx cream sulfamethoxazole 200 20 ml feeding tube Q12 9 days #360 02/24/23 03/02/23 Rx mg-trimethoprim 40 mg/5 mL oral mL suspension tamsulosin 0.4 mg capsule 0.4 mg PEG QAM #30 caps 02/24/23 03/02/23 Rx insulin glargine 100 unit/mL 16 unit SC BID@0830,199903/02/23 03/02/23 History subcutaneous solution (Lantus U-100 Insulin) Patient History Medical History Discussion about advance care planning held with family member Palliative care by specialist Weakness generalized Altered mental status Persistent wound pain Preoperative cardiovascular examination H/O deep venous thrombosis History of CVA (cerebrovascular accident) Status post administration of all doses of COVID-19 vaccine series BPH with obstruction/lower urinary tract symptoms Hypomagnesemia Diabetic peripheral neuropathy associated with type 2 diabetes mellitus Osteomyelitis of great toe of right foot Superior mesenteric artery stenosis Hemiplegia affecting right dominant side Right foot drop Monoplegia affecting right dominant side Aortic valve stenosis CAD (coronary artery disease) 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 in the setting of diabetes for which patient initially underwent off pump 3 vessel coronary artery bypass grafting in 2006 with DUARTE to LAD, SVG to circumflex and SVG to PDA Bare metal stent to protected left main coronary artery 08/13/2015 PCI drug-eluting stent to the saphenous vein graft to RPDA 04/17/2014 PCI, drug-eluting stent to the ostial portion of the SVG to RCA 12/04/2014 for severe in stent restenosis HTN (hypertension) Carotid stenosis Proliferative diabetic retinopathy Status post cerebrovascular accident Obesity Dyslipidemia Type 2 diabetes mellitus Retinal edema Status post myocardial infarction History of pancreatitis Surgical History S/P percutaneous endoscopic gastrostomy (PEG) tube placement S/P debridement (09/16/22) Debridement of Sacral Wound with Wound Vac Placement(Not Applicable) - Ruth Ann Vaz, Hx of vitrectomy S/P PTCA (percutaneous transluminal coronary angioplasty) S/P angioplasty with stent S/P CABG x 3 Family History Father Heart disease Social History Smoking Status: Unknown if ever smoked Tobacco Type: Cigarettes Second Hand Exposure: No; Do You Dip or Chew Tobacco: No; Hx Alcohol Use: No Hx Substance Use: No Preferred Language: Czech Communication Ability: Impaired Communication Ability Comment: Intermittent Confusion and history of CVA. Visual Impairment: No Limitations Hearing Ability: Normal Home Appliance Tech Required: No Beliefs That Will Affect Care: Spiritual marital status: Current Living Situation: [facility] current occupational status: disabled Other Information That Helps Us Care for You: No Feels Safe at Home: Yes Safety Concerns: Feels Safe At This Time Assistive Devices: Glasses Results & Data Vital Signs (Past 12 Hours) Vital Signs Temp Pulse Pulse Resp BP Pulse Ox O2 Del Method 04/08/23 07:54 81 04/08/23 07:15 37.7 C H 82 18 120/72 96 Room Air 04/08/23 02:31 38.1 C H 75 18 117/68 94 Room Air 04/08/23 00:00 67
[2023-04-08] MEDS ORDERED: DEXTROSE 5% 500 ML IV SCH (11:30)
--- NOTE | 2023-04-08 16:54 | Infectious Disease Progress Nt ---
Date of Service April 08, 2023 Telehealth Information Note writtent after chart review and discuss w/ Dr. Soriano Assessment & Plan (1) Chronic osteomyelitis of sacrum: (2) Fever: Plan: This is a 63 y/o male w/ hx of stroke w/ paraplegia and multiple medical issue including but not limited to chronic sacro coccygeal OM in the setting of chronic sacral decub ulcer, who was discharged in mid February on a long-term abx therapy w/ bactrim and metronidazole (w/ plan to complete on 03/06/23) but returned to [facility] on 03/02/23 as hematuria was noted. Found to have hyponatremia possibly secondary to bactrim. Since admission, the patient has been on daptomycin and cefepime (admission to 03/06/23) and off abx until 03/14/23 when the patient had 2 episodes of fever. He was started on daptomycin and zosyn. ID was called to comment on the abx therapy and signed off on 03/22/23: recommended to hold abx and monitor. He has initially had fever infrequently then developed more persistent fever. Today, he has fever of 39 C. The blood cultures from 04/01 grew GPB initially in 1 of 4 bottles: today the micro lab reported an AFB w/ further work up pending. ID was called to re-assess the patient. He was started on daptomycin and fuconazole 04/08. He is hemodynamically stable. Per Dr. Soriano, the primary team at [facility] has been having social/ethical issues: patients spouse attempting to dictate the care, demanding and refusing certain medical interventions. ID was called to reasses the patient. He has no CVC in place. O2 sat is normal on RA. CXR show stable L basilar opacities (scarring/atelectasis vs infectious process). The sacral wound does not show any obvious evidence of soft tissue infection per review of the picture scanned in EMR. Buttock surface wound cx (03/16/23): MRSA (R to clinda; S to dapto, rif, tetra, bact, vanco) Blood cx (04/01): GPB -> AFB (1 of 4) Sacrum surface wound cx (04/03): MRSA Blood cx (04/06/23): NGTD U cx (04/07): yeast CXR (04/06/23): 1. Cardiomegaly with pulmonary vascular congestion and mild interstitial edema. This has improved from 04/01/2023. 2. Left basilar opacities are similar to previous. This could represent scarring/atelectasis versus an infectious/inflammatory pneumonitis. Clinical correlation will be required. 3. Suspect small pleural effusions. 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, chronic dysphagia s/p PEG, BPH on chronic indwelling catheter Hx of allergy to bactrim Recommendation: - Stop daptomycin - Start Cipro 500 mg bid, meropenem 1 gm iv q8 hours, and linezolid 600 mg bid - Repeat CT pelvis to reassess the sacral area to r/o deep seated infection such as acute on chronic OM vs abscess - F/u blood cultures from 04/01 and 04/06/23 - Obtain fungal blood cultures just in case - Consider hold fluconazole if it is directed for the yeast in urine: yeast in urine is less likely to be a pathogen - Will continue to follow: please, contact ID if the patient clinically deteriorates on cipro, linezolid, and meropenem. The acid-fast GPB may represent aerobic actinomycetes (ie, growth noted in aerobic bottle), if not contaminant, such as [place], Nocardia, Rhodococcus, Tsukamurella, etc. I would cover him w/ cipro, meropenem, and linezolid, pending the result. I am concerned about worsening infection in his sacrum as there does not appear to be any other obvious source of infection. Case discussed w/ Dr. Soriano. Results & Data Vital Signs (Past 12 Hours) Vital Signs Temp Pulse Pulse Resp BP Pulse Ox O2 Del Method 04/08/23 16:44 78 04/08/23 15:10 39.4 C H 72 18 109/70 97 Room Air 04/08/23 11:00 37.2 C 72 17 115/67 96 Room Air 04/08/23 10:00 Room Air 04/08/23 07:54 81 04/08/23 07:15 37.7 C H 82 18 120/72 96 Room Air (2) Fever Fever type: unspecified Qualified Code(s): R50.9 - Fever, unspecified
[2023-04-08] MEDS ORDERED: OPTIRAY 320 100ml IV ONE (17:33)
--- NOTE | 2023-04-08 18:36 | Discharge Summary ---
Discharge Summary Date of Service April 08, 2023 Notes For Next Care Provider Please see Summary below Medication Changes From Visit See current inpatient medication list below -Started on antibiotics Daptomycin, Meropenem and ciprofloxacin per ID recs on 04/08 -Pt now on scheduled tylenol and tramadol for pain control -Holding Lasix per Nephrology recs on 04/08 for hypernatremia Other changes listed in summary below Admission HPI Per Admitting Provider History obtained from patient, family, and records. Limited history from patient secondary to aphasia. 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 Recurrent [facility] admissions since 2018. Last confinement November 17 to February 24, 2023 for sacrococcygeal osteomyelitis. Cultures grew MRSA and Bacteroides. [facility] ID recommended Bactrim and Flagyl course for 6 weeks (last day March 06, 2023). Patient eventually discharged [facility] facility last week. Patient complaining about stress of daily commute from her [place] residence to visit her at [facility]. Progressive hyponatremia and hyperkalemia on outpatient blood work done at rehab facility since discharge as per . 02/25 serum sodium 134, serum potassium 4.9 02/28 serum sodium 131, serum potassium 5 03/01 serum sodium 130, serum potassium 5.5 Rehab facility provider contemplating outpatient Nephrology consultation as per . Yesterday patient noted to have left sided abdominal discomfort by staff. Hematuria noted in Hagan catheter. Patient unable to verbalize chest pain, SOB symptoms. Patient brought to [facility] ER as per patient's request. IV ceftriaxone administered at the ER. 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, was living with prior to multiple protracted hospital confinements Admission Exam Per Admitting Provider GENERAL: Comfortable, aphasic, no respiratory distress SKIN: Pallor, warm HEENT: Partial alopecia, pale palpebral conjunctivae, no ptosis, dry buccal mucosa NECK : Supple, no tenderness CHEST : CTA, no tenderness HEART : RRR, systolic murmur over precordium, obliterated S1-S2 ABDOMEN: Some distention, nontender EXTREMITIES : No LE swelling/tenderness, no other conspicuous deformities noted NEUROLOGIC : Aphasic, no facial asymmetry, dense hemiparesis right (chronic) Principal Dx & Hospital Course #1 = Principal Diagnosis (1) Fever: (2) Infected decubitus ulcer: (3) Splenic infarction: (4) Acute hyponatremia: (5) Hematuria: (6) Aortic stenosis: (7) Paroxysmal atrial fibrillation: (8) Peripheral arterial disease: (9) History of CVA (cerebrovascular accident): (10) BPH with obstruction/lower urinary tract symptoms: (11) Type 2 diabetes mellitus: (12) HTN (hypertension): Plan Mr. Turner is a 62 year old gentleman with a complicated medical history notable for recurrent stroke with residual right hemiplegia, chronic paroxysmal atrial fibrillation, aortic stenosis, severe CAD s/p multiple PCIs and CABG, DMII, chronic decubitus ulcer with osteomyelitis complicated by recurrent infections who is admitted due to fever and recurrent infection. Pt has been admitted for 37 days. Fever Uncontrolled Pain Leukocytosis *resolved Decubitus ulcer complicated by osteomyelitis/cellulitis Pt with repeated fevers, requiring repeated infectious work-ups. Most recent workup Nov -2 -WBC currently NOT elevated -chest xray 04/06- improved pulmonary vascular congestion and mild interstitial edema, small pleural effusions and noted opacities that are likely scars vs. infectious -repeat blood Cx x2 from 04/06- pending. One blood Cx from 04/01 positive for acid fast bacilli at this time -sacral wound Cx from 04/03 growing MRSA -UA from 04/07- noted uric acid crystals, yeast present. Urine Cx 04/07 with NGTD, uric acid level wnl -c diff 04/07- ordered and pending. CT abd/pelvis 04/08 notes pt is currently constipated. -respiratory panel 04/07 with no acute infectious process. -ESR and CRP elevated -D-dimer and procalcitonin within normal limits. - In terms of clots, pt with noted splenic/renal infarcts in the past, recurrent strokes while on DAPT and anticoagulation. -Consider a neoplastic process as well as a possible cause of the fever- conside r sandoval-scanning Started on empiric IV Daptomycin on 04/07 for positive blood Cx on 04/01. Sacral wound Cx was also positive for MRSA (noted that sacral wound has persistently grown MRSA) Await repeat blood Cx and urine Cx results. Chest xray less likely infectious, continue to monitor respiratory need/oxygen saturations. Currently saturating well on RA. IV Lasix prn for pulmonary congestion/pleural effusions (one dose on 04/07) Started on diflucan 200mg daily on 04/07 with goal to monitor qtc (pt also on other prolonging meds). EKG 04/06 with noted qtc of 450, not currently elevated at this time. Daily EKG's while on diflucan for qtc monitoring. Question of whether uncontrolled pain (especially with dressing changes) has been causing fevers as well. -Pain management was consulted on 04/04- appreciate recs -recommended acetaminophen 650mg q8h scheduled and IV dialudid 0.25mg daily 15- 30min prior to sacral wound dressing changes -Pt has been receiving acetaminophen 650mg q8h scheduled. -Pt was on dilaudid 0.25mg daily scheduled as recommended, but pt's has been declining for the past 2 days (04/06 and 04/07). -Discussion with pt's Nasreen on 04/07. Agreeable to tramadol at dose pt received and tolerated in the past. Per chart review, dose was tramadol 25mg. -Tramadol 25mg daily scheduled in place of previously scheduled dilaudid 0.25mg that has been refusing. -Ethics Committee previously consulted on 04/05 due to pt's 's refusal of ANY pain medications- appreciate recs -recommended that if pain control still an issue OR if the were to resume refusals, repeated attempts to educate on the following should be made: (1) safe use of pain meds (2) hospital checks and balances to help prevent overdoses/ensure safe use of meds (3) pain signs appear differently to medical team from what she as partner/layperson would consider pain in this pt who is unable to communicate (4) digging further into her beliefs/hesitation with providing pain relief that has not been addressed. (5) if issue is medical mistrust, consider pursuing possibility of transferring care to another facility that she trusts more -Ethics committee advised and concluded that is acting out of concert with what this patient would typically choose if he had autonomy (unless pt had a deeply held alevism belief for suffering that has not been expressed) Pt care connector was involved, reportedly report was made to Office of A[facility] and case has also been discussed with the hospital legal team. There were no plans to attempt tp remove as pt's surrogate decision maker at this time. Case management also closely involved, working to find placement as needed. with specific requests. Wound Care on board- pt occasionally off of wound vac to allow peripheral healing especially when wound appears macerated. Due to pt's persistent fevers, ID was re-consulted on 04/08 and recommended the following: -discontinue daptomycin and start IV meropenem, linezolid and ciprofloxacin. (Per pharmacy at [facility], linezolid interacts with pt's scheduled tramadol and can further lower seizure threshold. Given tramadol is the only narcotic pt's is agreeable to using for pain control for this pt after ethics discussion, tramadol was continued and daptomycin was continued in place of linezolid). -obtain fungal cultures, currently pending -hold diflucan/fluconazole -repeat CT abd/pelvis on 04/08 (noted chronic osteomyelitis, cellulitis but no abscesses) -ID previously recommended on 03/22 discontinuing abx and monitoring for fevers with aggressive wound care General surgery previously consulted and had noted that they would not pursue debridement. Previously stated that pt is not a good surgical candidate and would need to be transferred for any procedures. Given pt's increasing fevers and wound progression with now noted acid fast bacilli in one blood Cx, [facility] was contacted for a higher level of care. They agreed to accept the pt for transfer for further evaluation by the surgical team there. Pt previously had debridement done at [facility], ID recently recommending diverting ileostomy as a possible solution as recently as last month though pt's declines and pt has been deemed not a surgical candidate. Transfer in place for higher level of care. Hypernatremia Pt's sodium levels persistently elevated over the past 4 days. Nephrology consult placed -recommended raising the free water flushes to 200 mL every 4 hours. -Holding Lasix for the next few days and reassessing labs Pulmonary Edema *improved Pleural Effusions *improved Pt occasionally sounds more wet than usual Chest XRAY ordered 04/06- noted improving pulmonary edema, pleural effusions No increased oxygen need at this time, currently on RA Continue suctioning as able Continue to monitor volume status Respiratory Therapy doesn't feel there are further treatments/chest physio/other modalities to optimize status at 's request Holding Lasix 20mg PEG daily, no further prn doses per nephrology as noted above Continue to monitor kidney function while on lasix Constipation Noted on CT abd/pelvis 04/08 New for this patient as he previously had diarrhea requiring placement of a fecal system. Miralax now scheduled Eye discharge *resolved recurrent eye discharge, especially in left eye Completed course of poly trim for eyes, no further conjunctival injection or discharge noted Acute splenic infarct Chronic renal infarcts Noted on CT Abd/pelvis: "an acute splenic infarct measuring up to 6 mm with chronic renal infarcts and cortical scarring again noted." Continue therapeutic Lovenox Previous provider discussed with surgery on 03/17/2023: No further intervention needed for acute splenic infarct Hematuria *resolved Trent hematuria noted in the facility prior to this admission Likely secondary to trauma due to Hagan catheter CT scan of the chest and pelvis did show nonspecific thickening of the bladder wall Hematuria resolved Lovenox resumed without recurrence of hematuria CBC remains stable Aortic Stenosis H/O severe aortic stenosis chronic, stable but need to closely monitor volume status Paroxysmal Atrial Fibrillation As per prior provider On the night of December 07 ; patient converted to atrial fibrillation with rapid ventricular response. He was startedamiodarone drip as per cardiology recommendation Converted back to sinus rhythm on December 08 after 5 hours. Repeat echocardiogram was done; found to have moderately reduced EF of 35 to 40% with severe Rate remains controlled without any cardiac symptoms Continue amiodarone, metoprolol On therapeutic dose of Lovenox SQ for anticoagulation Hx of CVA History of recurrent CVA despite DAPT and anticoagulation therapy Chronic right hemiplegia/left arm paralysis/mostly nonverbal/expressive aphasia/dysphagia with PEG tube Continue statin, Plavix/Lovenox BPH/LUTS Hagan in place Continue tamsulosin. DMII A1c of 6.6 in feb 2023 Continue Lantus, sliding scale insulin. HTN BP overall stable. Continue metoprolol. Resume lisinopril if BP remains high--pressure labile Right heel wound Wound culture showed Corynebacterium species Completed antibiotics on 03/06/2023 as per ID recommendations. Continue wound care Diet: cont enteral nutrition via PEG with free water flushes as scheduled. DVT prophylaxis: Therapeutic anticoagulation with Lovenox CODE STATUS: Full code per Disposition- Transfer to [facility] for higher level of care Discharge Exam General: moaning when addressed Psych: could not be determined Neuro: difficulty with movements, right sided hemiplegia HEENT: NC/AT Chest: Nontender to palpation. CV: RRR, blowing murmur Resp: increased effort of breathing initially, rhonchi noted Abdomen: Soft, but pt moans whenever it is touched Updated Medication List Medication Instructions Recorded Confirmed Type nitroglycerin 0.4 mg sublingual 0.4 mg sublingual DIRECTED PRN 08/09/19 03/02/23 History tablet Chest Pain tamsulosin 0.4 mg capsule 0.4 mg PO HS 01/11/21 03/02/23 History atorvastatin 80 mg tablet 80 mg feeding tube QPM 05/17/21 03/02/23 History clopidogrel 75 mg tablet (Plavix) 75 mg feeding tube QAM 11/17/22 03/02/23 History enoxaparin 120 mg/0.8 mL 70 mg subcut Q12 11/17/22 03/02/23 History subcutaneous syringe ferrous sulfate 325 mg (65 mg 325 mg PO QAM 11/17/22 03/02/23 History iron) tablet,delayed release lisinopril 5 mg tablet 5 mg feeding tube DAILY 11/17/22 03/02/23 History acetaminophen 325 mg/10.15 mL oral 650 mg (20.3 mL) PEG Q6H PRN fever 02/24/23 03/02/23 Rx suspension or pain 30 days #300 mL amiodarone 200 mg tablet 200 mg PEG BIDM 30 days #60 tabs 02/24/23 03/02/23 Rx cholestyramine-aspartame 4 gram 4 g PO BID@1000,2200 30 days #60 ea 02/24/23 03/02/23 Rx oral powder for susp in a packet (Prevalite) insulin aspart U-100 100 unit/mL 1 unit (0.01 mL) SC BID@1130,1630 02/24/23 03/02/23 Rx subcutaneous solution (Novolog 30 days #100 mL U-100 Insulin aspart) insulin aspart U-100 100 unit/mL 1 unit (0.01 mL) SC DAILY@0730 30 02/24/23 03/02/23 Rx subcutaneous solution (Novolog days #100 mL U-100 Insulin aspart) magnesium oxide 400 mg (241.3 mg 400 mg PEG BID 30 days #60 tabs 02/24/23 03/02/23 Rx magnesium) tablet multivit and minerals-ferrous 15 ml PEG QAM 30 days #450 mL 02/24/23 03/02/23 Rx gluconate 9 mg iron/15 mL oral liquid (Centrum) tamsulosin 0.4 mg capsule 0.4 mg PEG QAM #30 caps 02/24/23 03/02/23 Rx insulin glargine 100 unit/mL 16 unit SC BID@0830,2000 03/02/23 03/02/23 History subcutaneous solution (Lantus U-100 Insulin) Additional Medication Comments Current Inpatient Medications Acetaminophen (Acetaminophen Susp 325 Mg/10.15 Ml Udc) 650 mg PEG Q8H [facility] Stop: 05/04/23 10:59 Last Admin: 04/08/23 13:29 Dose: 650 mg Amiodarone HCl (Amiodarone 200 Mg Tab) 200 mg PEG BIDM [facility] Stop: 05/02/23 16:59 Last Admin: 04/08/23 18:47 Dose: 200 mg Artificial Tears (Artificial Tears) 1 drops OPB QID PRN PRN Reason: Dryness Stop: 06/10/23 12:17 Atorvastatin Calcium (Atorvastatin 40 Mg Tab) 80 mg PEG QPM [facility] Stop: 06/10/23 20:59 Last Admin: 04/07/23 20:37 Dose: 80 mg Ciprofloxacin (Ciprofloxacin 500 Mg Tab) 500 mg PEG BID [facility]; Protocol Stop: 04/15/23 20:59 Clopidogrel Bisulfate (Clopidogrel Bisulfate 75 Mg Tab) 75 mg PEG QAM [facility] Stop: 06/10/23 08:59 Last Admin: 04/08/23 10:00 Dose: 75 mg Enoxaparin Sodium (Enoxaparin 80 Mg/0.8 Ml Syr) 70 mg SQ Q12H [facility] Stop: 06/10/23 17:59 Last Admin: 04/08/23 18:48 Dose: 70 mg Ferrous Sulfate (Ferrous Sulfate 325 Mg/7.4 Ml Udp) 325 mg PO QAM [facility] Stop: 06/10/23 10:59 Last Admin: 04/08/23 10:00 Dose: 325 mg Meropenem 500 mg/ Syringe 10 mls @ 2 mls/min IV Q6H [facility]; Protocol Stop: 04/22/23 19:59 Daptomycin 500 mg/ Syringe 10 mls @ 5 mls/min IV Q24H [facility]; Protocol Stop: 04/15/23 19:59 Insulin Aspart (Insulin Aspart Per Unit Charge) 0 units SC ACHS [facility] Stop: 04/17/23 07:29 Last Admin: 04/08/23 18:45 Dose: 10 units Insulin Glargine (Lantus Per Unit Charge) 18 units SC BID [facility] Stop: 05/05/23 20:59 Last Admin: 04/08/23 10:03 Dose: 18 units Lactobacillus Acidophilus (Advanced Probiotic 1250 Mg Capsule) 2 cap PO DAILY [facility] Stop: 06/10/23 08:59 Last Admin: 04/08/23 10:00 Dose: 2 cap Metoprolol Tartrate (Metoprolol Tartrate 25 Mg Tab) 25 mg PEG BID [facility] Stop: 06/10/23 20:59 Last Admin: 04/08/23 09:59 Dose: 25 mg Miscellaneous (Peptamen Stop Order) 1 each N/A DAILY@0800 [facility] Stop: 05/06/23 07:59 Last Admin: 04/08/23 08:00 Dose: 1 each Nutritional Formula (Peptamen Intense Vhp 1.0 [place]co 1,000 Ml Bag) 1,000 ml PEG .See Protocol [facility]; Protocol Stop: 05/02/23 11:59 Last Admin: 04/07/23 20:38 Dose: 1,000 ml Polyethylene Glycol (Polyethylene (Miralax) 17 Gm Pack) 17 gm PO DAILY [facility] Stop: 05/09/23 08:59 Sterile Water (Tube Feeding Water Flush) 200 ml PEG Q4H [facility] Stop: 05/08/23 12:21 Last Admin: 04/08/23 16:30 Dose: 200 ml Tramadol HCl (Tramadol Hcl 50 Mg Tablet) 25 mg PO DAILY [facility] Stop: 05/08/23 08:59 Last Admin: 04/08/23 10:52 Dose: 25 mg Hospital Stay Data Consultations 03/02/23 02:51 ED Decision to Admit Stat 03/02/23 05:49 Consult Nephrology Routine 03/16/23 12:50 Consult General Surgery Routine 03/19/23 13:16 Consult Infectious Diseases Routine 03/22/23 10:03 Consult Infectious Diseases Routine 04/04/23 09:38 Consult Pain Management Routine 04/05/23 08:22 Consult Ethics Routine 04/08/23 10:39 Consult Nephrology Routine Diagnostic Imagining Performed 03/02/23 00:50 CT abd pelvis IV con only Stat 03/17/23 09:09 CT abd pelvis IV con only Routine 04/08/23 16:52 CT abd pelvis IV con only Urgent Abdomen/Pelvis CT 03/02/23 00:50 Exam(s): CT ABDOMEN + PELVIS With Contrast IV Amt: 90 ML OPTIRAY 320 EXAM: CT Abdomen and Pelvis With Intravenous Contrast CLINICAL HISTORY: Reason for exam: hematuria, decub ulcer,. TECHNIQUE: Axial computed tomography images of the abdomen and pelvis with intravenous contrast. CTDI is 21.91 mGy and DLP is 1208.15 mGy-cm. Automated exposure control was utilized for the study. A dose lowering technique was utilized adhering to the principles of ALARA. CONTRAST: Patient received 90 ML OPTIRAY 320 of IV contrast COMPARISON: Dated 11/17/22 FINDINGS: Lung bases: Unremarkable. No mass. No consolidation. ABDOMEN: Liver: Unremarkable. No mass. Gallbladder and bile ducts: Unremarkable. No calcified stones. No ductal dilation. Pancreas: Unremarkable. No mass. No ductal dilation. Spleen: Unremarkable. No splenomegaly. Adrenals: Thickening of the right adrenal gland is a stable finding. Kidneys and ureters: Unremarkable. No solid mass. No hydronephrosis. Stomach and bowel: Significant stool distention of the rectum. No mucosal thickening. PELVIS: Appendix: No findings to suggest acute appendicitis. Bladder: Nonspecific moderate bladder wall thickening. Hagan catheter in place within a collapsed urinary bladder. Reproductive: Unremarkable as visualized. ABDOMEN and PELVIS: Intraperitoneal space: Unremarkable. No free air. No significant fluid collection. Bones/joints: Changes of prior sternotomy. Soft tissue irregularity over the sacrum with osseous erosion of the sacrum/coccyx (image 80 series 2). Appearance is stable from prior. Extensive dystrophic calcification within the bilateral hip adductor musculature. No acute fracture. No dislocation. Soft tissues: See above. Vasculature: Partially visualized extensive atherosclerotic disease of the coronary arteries. No abdominal aortic aneurysm. Lymph nodes: Unremarkable. No enlarged lymph nodes. Tubes, lines and devices: Gastrostomy tube in place. IMPRESSION: 1. Moderate bladder wall thickening without hydronephrosis or CT evidence for involvement of the upper urinary tract. 2. Relatively stable appearance of a sacral decubitus ulcer with erosion of the underlying bone compatible with osteomyelitis. Electronically signed by: Micky Valdez MD 03/02/23 02:31 AM Chest X-Ray 03/02/23 02:52 XR chest 1V portable HISTORY: hyponatremia COMPARISON: Chest 01/29/2023. FINDINGS: There are low lung volumes. A few left basilar linear densities favor subsegmental atelectasis. Otherwise, the lungs are clear. No evidence for pulmonary edema. The cardiac silhouette remains mildly enlarged. There are poststernotomy changes again noted. Degenerative changes within the shoulders. IMPRESSION: 1. Stable mild cardiomegaly. 2. Otherwise, no acute process within the chest. ACT 112: Negative or not required by law. Electronically signed by: Chris Bowens M.D. 03/02/2023 6:59 AM Chest X-Ray 03/12/23 09:52 SINGLE VIEW CHEST CLINICAL HISTORY: Fever. FINDINGS: An AP, portable, upright chest radiograph is compared to study dated 03/02/2023. Correlation is made with chest CT dated 12/30/2022. The examination is degraded by portable technique and patient rotation. The patient is status post midline sternotomy. The heart is enlarged noting atherosclerotic calcification of the thoracic aorta. There is prominence of the pulmonary vasculature. Scarring/atelectasis is noted at the lung bases. No large pleural effusion or pneumothorax is seen. The skeletal structures are osteopenic. Degenerative change is noted in the shoulders. There is chronic deformity of the right scapula. IMPRESSION: Cardiomegaly with prominence of the pulmonary vasculature. Correlate clinically for evidence of fluid overload/congestive change. ACT 112: Negative or not required by law. Electronically signed by: Donny Fernando M.D. 03/12/2023 10:20 AM Chest X-Ray 03/15/23 10:56 XR chest 1V portable CLINICAL HISTORY: Dyspnea. COMPARISON STUDY: Chest CT December 30, 2022. Chest radiograph March 12, 2023. FINDINGS: Median sternotomy wires and mediastinal surgical clips are again noted. Cardiomegaly is unchanged. There is mild interstitial thickening. Moderate left basilar opacity is present. There is no consolidation within the right lung. There is no pneumothorax. No definite pleural effusion. IMPRESSION: 1. Cardiomegaly. Mild interstitial thickening which favors edema. 2. Moderate left basilar opacity. This could reflect pneumonia or atelectasis. Radiographic follow-up to ensure resolution is recommended. ACT 112: Negative or not required by law. Electronically signed by: Pal Blunt M.D. 03/15/2023 11:49 AM Abdomen/Pelvis CT 03/17/23 09:[address] WITH IV CONTRAST CT DOSE: 1351.09 mGy.cm HISTORY: Follow-up study in a patient with reported sacral decubitus ulcer decub ulcer TECHNIQUE: Multiaxial CT images of the abdomen and pelvis were performed following the IV administration of 93 cc of Optiray, A dose lowering technique was utilized adhering to the principles of ALARA. COMPARISON STUDY: 03/02/2023, 11/17/2022. FINDINGS: Cardiomegaly. Prior median sternotomy. Small moderate layering pleural effusions with mild dependent bibasilar consolidation. Limited exam secondary to opportunity positioning and respiratory motion. 3.7 x 6.0 cm wedge-shaped subcapsular hypodensity within the anteroinferior spleen is noted with mild adjacent Splenic stranding, new from prior. Mildly atrophic pancreas. Unchanged mild nodular thickening of the adrenal glands. Mildly contracted gallbladder. The liver is within normal limits. Patent portal vein. Unchanged appearance of the kidneys with chronic renal infarcts. 2.1 cm left renal cyst. Decompressed bladder with wall thickening and Hagan catheter in place. Air within the bladder lumen is present. Prostatomegaly. Atherosclerosis of the aorta without aneurysm. There is no lymphadenopathy identified. No bowel obstruction. A gastrostomy tube is in place. Fecal retention results in rectal distention. Mild rectal wall thickening with perirectal stranding. There is moderate to extensive fecal retention throughout. The appendix is not visualized. Chronic sacral decubitus ulcer is again noted with extension to the posterior bony cortex of the sacrum and coccyx. Erosion involving the posterior elements at L5 and also some the coccyx again noted with periosteal elevation and sclerosis. Fecal material is noted in the anus and medial gluteal cleft. Adjacent cellulitis without abscess. Chronic findings of the left forearm. Mild superior endplate compression at L4 is unchanged. Heterotopic ossifications are noted adjacent to the proximal femora bilaterally extending into the adjacent musculature. IMPRESSION: 1. Chronic sacral decubitus ulcer with chronic sacrococcygeal osteomyelitis again noted. There is cellulitis without abscess. 2. There is an acute splenic infarct measuring up to 6 mm with chronic renal infarcts and cortical scarring again noted. 3. No bowel obstruction. 4. Gastrostomy tube in place. 5. Constipation with stercoral proctitis. 6. Small to moderate pleural effusions with mild bibasilar consolidation. 7. Additional findings as above. ACT 112: Negative or not required by law. The above report was generated using voice recognition software. It may contain grammatical, syntax or spelling errors. Electronically signed by: Abdon Gr M.D. 03/17/2023 11:16 AM Chest X-Ray 03/17/23 09:09 SINGLE VIEW CHEST CLINICAL HISTORY: Dyspnea. FINDINGS: An AP, portable, upright chest radiograph is compared to study dated 03/15/2023. Correlation is made with chest CT dated 12/30/2022. The patient is status post midline sternotomy. The heart is enlarged noting atherosclerotic calcification of the thoracic aorta. There is pulmonary vascular congestion. Left basilar opacities are again noted. No large pleural effusion or pneumothorax is seen. The skeletal structures are osteopenic. Chronic deformity of the right scapula is unchanged. Arthritic change is seen in the shoulders and spine. IMPRESSION: 1. Cardiomegaly with evidence of congestive failure. 2. Left basilar opacities are similar to previous. This could represent scarring/atelectasis versus an infectious/inflammatory pneumonitis. Clinical correlation will be required. ACT 112: Negative or not required by law. Electronically signed by: Donny Fernando M.D. 03/17/2023 10:30 AM Chest X-Ray 03/25/23 16:18 XR chest 1V portable HISTORY: 62 years-old Male Chest congestion acute cough COMPARISON: 03/17/2023 TECHNIQUE: AP view of the chest FINDINGS: Cardiac silhouette is enlarged. Prior median sternotomy with CABG. Pulmonary edema has progressed from prior. No pneumothorax. Small pleural effusions with mild bibasilar opacities. Degenerative changes of the shoulders and spine. IMPRESSION: 1. Cardiomegaly with pulmonary edema. 2. Small pleural effusions with mild bibasilar opacities. ACT 112: Negative or not required by law. The above report was generated using voice recognition software. It may contain grammatical, syntax or spelling errors. Electronically signed by: Abdon Gr M.D. 03/25/2023 4:53 PM Chest X-Ray 04/01/23 15:15 XR chest 1V portable HISTORY: 63 years-old Male aspiration acute shortness of breath COMPARISON: 03/25/2023 TECHNIQUE: AP view of the chest FINDINGS: Cardiac silhouette is enlarged. Median sternotomy with probable CABG. Pulmonary vascular congestion with interstitial coarsening. Small pleural effusions with mild left basilar opacities. Degenerative changes of the shoulders and spine. IMPRESSION: 1. Cardiomegaly with persistent pulmonary edema. 2. Small pleural effusions with unchanged left basilar opacities. ACT 112: Negative or not required by law. The above report was generated using voice recognition software. It may contain grammatical, syntax or spelling errors. Electronically signed by: Abdon Gr M.D. 04/01/2023 4:24 PM Chest X-Ray 04/06/23 23:19 SINGLE VIEW CHEST CLINICAL HISTORY: Tachypnea. FINDINGS: 2 AP, portable, upright chest radiographs are compared to study dated 04/01/2023. Correlation is made with chest CT dated 12/30/2022. The examination is degraded by portable technique and patient rotation. The patient's head partially obscures the apices. The patient is status post midline sternotomy. The heart is enlarged noting atherosclerotic calcification of the thoracic aorta. There is pulmonary vascular congestion and mild interstitial edema. This has improved from previous. Left basilar opacities are again noted. Suspect trace pleural effusions. No pneumothorax is seen. The skeletal structures are osteopenic. Chronic deformity of the right scapula is unchanged. Arthritic change is seen in the shoulders and spine. A gastrostomy tube projects over the left upper quadrant. IMPRESSION: 1. Cardiomegaly with pulmonary vascular congestion and mild interstitial edema. This has improved from 04/01/2023. 2. Left basilar opacities are similar to previous. This could represent scarring/atelectasis versus an infectious/inflammatory pneumonitis. Clinical correlation will be required. 3. Suspect small pleural effusions. ACT 112: Negative or not required by law. Electronically signed by: Donny Fernando M.D. 04/07/2023 7:18 AM Abdomen/Pelvis CT 04/08/23 16:[address] WITH IV CONTRAST CT DOSE: 1487.08 mGy.cm HISTORY: Acute generalized abdominal pain with fever persistent fevers, r/o abscess TECHNIQUE: Multiaxial CT images of the abdomen and pelvis were performed following the IV administration of 93 cc of Optiray, A dose lowering technique was utilized adhering to the principles of ALARA. COMPARISON STUDY: 03/17/2023 FINDINGS: Cardiomegaly. Prior median sternotomy. Small to moderate layering pleural effusions with mild dependent bibasilar consolidation and intralobular septal thickening. Limited exam secondary to upper abdomen repositioning and respiratory motion. 3.5 cm subacute splenic infarct again noted on image 102. Mildly atrophic pancreas. Unchanged mild nodular thickening of the adrenal glands. Mildly contracted gallbladder. The liver is within normal limits. Patent portal vein. Chronic renal infarct redemonstrated. There is an acute right-sided renal infarct measuring 4.0 x 3.1 x 5.0 cm on image 154. 2.1 cm left renal cyst. Decompressed urinary bladder with wall thickening and Hagan catheter in place. Air within the bladder lumen is present. Prostatomegaly. Atherosclerosis of the aorta without aneurysm. There is no lymphadenopathy identified. No bowel obstruction. A gastrostomy tube is in place. Fecal moderate to extensive fecal retention. Mild rectal wall thickening with perirectal stranding. The appendix is not visualized. Chronic sacral decubitus ulcer is again noted with extension to the posterior bony cortex of the sacrum and coccyx. Erosion involving the posterior elements at L5 and also some the coccyx again noted with periosteal elevation and sclerosis. Associated cellulitis without abscess. Mild superior endplate compression at L4 is unchanged. Heterotopic ossifications are noted adjacent to the proximal femora bilaterally extending into the adjacent musculature. IMPRESSION: 1. Chronic sacral decubitus ulcer with chronic sacrococcygeal osteomyelitis again noted. There is cellulitis without abscess. 2. Large acute right-sided renal infarct measures up to 5 cm. 3. Subacute splenic infarct with chronic renal infarcts and renal cortical scarring again noted. 4. No bowel obstruction. Constipation with stercoral proctitis. 5. Small to moderate pleural effusions with mild bibasilar consolidation. 6. Cardiomegaly with pulmonary edema. ACT 112: Negative or not required by law. The above report was generated using voice recognition software. It may contain grammatical, syntax or spelling errors. Electronically signed by: Abdon Gr M.D. 04/08/2023 7:11 PM Discharge Instructions Given to Patient (Per Discharging Provider) Mr. Turner is a 62 year old gentleman with a complicated medical history notable for recurrent stroke with residual right hemiplegia, chronic paroxysmal atrial fibrillation, aortic stenosis, severe CAD s/p multiple PCIs and CABG, DMII, chronic decubitus ulcer with osteomyelitis complicated by recurrent infections who is admitted due to fever and recurrent infection. Pt has been admitted for 37 days. Fever Uncontrolled Pain Leukocytosis *resolved Decubitus ulcer complicated by osteomyelitis/cellulitis Pt with repeated fevers, requiring repeated infectious work-ups. Most recent workup Apr 06- -WBC currently NOT elevated -chest xray 04/06- improved pulmonary vascular congestion and mild interstitial edema, small pleural effusions and noted opacities that are likely scars vs. infectious -repeat blood Cx x2 from 04/06- pending. One blood Cx from 04/01 positive for acid fast bacilli at this time -sacral wound Cx from 04/03 growing MRSA -UA from 04/07- noted uric acid crystals, yeast present. Urine Cx 04/07 with NGTD, uric acid level wnl -c diff 04/07- ordered and pending. CT abd/pelvis 04/08 notes pt is currently constipated. -respiratory panel 04/07 with no acute infectious process. -ESR and CRP elevated -D-dimer and procalcitonin within normal limits. - In terms of clots, pt with noted splenic/renal infarcts in the past, recurrent strokes while on DAPT and anticoagulation. -Consider a neoplastic process as well as a possible cause of the fever- consider sandoval-scanning Started on empiric IV Daptomycin on 04/07 for positive blood Cx on 04/01. Sacral wound Cx was also positive for MRSA (noted that sacral wound has persistently grown MRSA) Await repeat blood Cx and urine Cx results. Chest xray less likely infectious, continue to monitor respiratory need/oxygen saturations. Currently saturating well on RA. IV Lasix prn for pulmonary congestion/pleural effusions (one dose on 04/07) Started on diflucan 200mg daily on 04/07 with goal to monitor qtc (pt also on other prolonging meds). EKG 04/06 with noted qtc of 450, not currently elevated at this time. Daily EKG's while on diflucan for qtc monitoring. Question of whether uncontrolled pain (especially with dressing changes) has been causing fevers as well. -Pain management was consulted on 04/04- appreciate recs -recommended acetaminophen 650mg q8h scheduled and IV dialudid 0.25mg daily 15- 30min prior to sacral wound dressing changes -Pt has been receiving acetaminophen 650mg q8h scheduled. -Pt was on dilaudid 0.25mg daily scheduled as recommended, but pt's has been declining for the past 2 days (04/06 and 04/07). -Discussion with pt's Nasreen on 04/07. Agreeable to tramadol at dose pt received and tolerated in the past. Per chart review, dose was tramadol 25mg. -Tramadol 25mg daily scheduled in place of previously scheduled dilaudid 0.25mg that has been refusing. -Ethics Committee previously consulted on 04/05 due to pt's 's refusal of ANY pain medications- appreciate recs -recommended that if pain control still an issue OR if the were to resume refusals, repeated attempts to educate on the following should be made: (1) safe use of pain meds (2) hospital checks and balances to help prevent overdoses/ensure safe use of meds (3) pain signs appear differently to medical team from what she as partner/layperson would consider pain in this pt who is unable to communicate (4) digging further into her beliefs/hesitation with providing pain relief that has not been addressed. (5) if issue is medical mistrust, consider pursuing possibility of transferring care to another facility that she trusts more -Ethics committee advised and concluded that is acting out of concert with what this patient would typically choose if he had autonomy (unless pt had a deeply held alevism belief for suffering that has not been expressed) Pt care connector was involved, reportedly report was made to [facility] and case has also been discussed with the hospital legal team. There were no plans to attempt tp remove as pt's surrogate decision maker at this time. Case management also closely involved, working to find placement as needed. with specific requests. Wound Care on board- pt occasionally off of wound vac to allow peripheral healing especially when wound appears macerated. Due to pt's persistent fevers, ID was re-consulted on 04/08 and recommended the following: -discontinue daptomycin and start IV meropenem, linezolid and ciprofloxacin. (Per pharmacy at [facility], linezolid interacts with pt's scheduled tramadol and can further lower seizure threshold. Given tramadol is the only narcotic pt's is agreeable to using for pain control for this pt after ethics discussion, tramadol was continued and daptomycin was continued in place of linezolid). -obtain fungal cultures, currently pending -hold diflucan/fluconazole -repeat CT abd/pelvis on 04/08 (noted chronic osteomyelitis, cellulitis but no abscesses) -ID previously recommended on 03/22 discontinuing abx and monitoring for fevers with aggressive wound care General surgery previously consulted and had noted that they would not pursue debridement. Previously stated that pt is not a good surgical candidate and would need to be transferred for any procedures. Given pt's increasing fevers and wound progression with now noted acid fast bacilli in one blood Cx, [facility] was contacted for a higher level of care. They agreed to accept the pt for transfer for further evaluation by the surgical team there. Pt previously had debridement done at [facility], ID recently recommending diverting ileostomy as a possible solution as recently as last month though pt's declines and pt has been deemed not a surgical candidate. Transfer in place for higher level of care. Hypernatremia Pt's sodium levels persistently elevated over the past 4 days. Nephrology consult placed -recommended raising the free water flushes to 200 mL every 4 hours. -Holding Lasix for the next few days and reassessing labs Pulmonary Edema *improved Pleural Effusions *improved Pt occasionally sounds more wet than usual Chest XRAY ordered 04/06- noted improving pulmonary edema, pleural effusions No increased oxygen need at this time, currently on RA Continue suctioning as able Continue to monitor volume status Respiratory Therapy doesn't feel there are further treatments/chest physio/other modalities to optimize status at 's request Holding Lasix 20mg PEG daily, no further prn doses per nephrology as noted above Continue to monitor kidney function while on lasix Constipation Noted on CT abd/pelvis 04/08 New for this patient as he previously had diarrhea requiring placement of a fecal system. Miralax now scheduled Eye discharge *resolved recurrent eye discharge, especially in left eye Completed course of poly trim for eyes, no further conjunctival injection or discharge noted Acute splenic infarct Chronic renal infarcts Noted on CT Abd/pelvis: "an acute splenic infarct measuring up to 6 mm with chronic renal infarcts and cortical scarring again noted." Continue therapeutic Lovenox Previous provider discussed with surgery on 03/17/2023: No further intervention needed for acute splenic infarct Hematuria *resolved Trent hematuria noted in the facility prior to this admission Likely secondary to trauma due to Hagan catheter CT scan of the chest and pelvis did show nonspecific thickening of the bladder wall Hematuria resolved Lovenox resumed without recurrence of hematuria CBC remains stable Aortic Stenosis H/O severe aortic stenosis chronic, stable but need to closely monitor volume status Paroxysmal Atrial Fibrillation As per prior provider On the night of December 07 ; patient converted to atrial fibrillation with rapid ventricular response. He was startedamiodarone drip as per cardiology recommendation Converted back to sinus rhythm on December 08 after 5 hours. Repeat echocardiogram was done; found to have moderately reduced EF of 35 to 40% with severe Rate remains controlled without any cardiac symptoms Continue amiodarone, metoprolol On therapeutic dose of Lovenox SQ for anticoagulation Hx of CVA History of recurrent CVA despite DAPT and anticoagulation therapy Chronic right hemiplegia/left arm paralysis/mostly nonverbal/expressive aphasia/dysphagia with PEG tube Continue statin, Plavix/Lovenox BPH/LUTS Hagan in place Continue tamsulosin. DMII A1c of 6.6 in feb 2023 Continue Lantus, sliding scale insulin. HTN BP overall stable. Continue metoprolol. Resume lisinopril if BP remains high--pressure labile Right heel wound Wound culture showed Corynebacterium species Completed antibiotics on 03/06/2023 as per ID recommendations. Continue wound care Diet: cont enteral nutrition via PEG with free water flushes as scheduled. DVT prophylaxis: Therapeutic anticoagulation with Lovenox CODE STATUS: Full code Disposition- Being transferred to [facility] once bed available Total Time Total Time Spent Total Time Spent (In Minutes): >30 minutes
--- NOTE | 2023-04-08 18:37 | Hospitalist Progress Note ---
Date of Service April 08, 2023 Assessment & Plan (1) Fever: (2) Infected decubitus ulcer: (3) Splenic infarction: (4) Acute hyponatremia: (5) Hematuria: (6) Aortic stenosis: (7) Paroxysmal atrial fibrillation: (8) Peripheral arterial disease: (9) History of CVA (cerebrovascular accident): (10) BPH with obstruction/lower urinary tract symptoms: (11) Type 2 diabetes mellitus: (12) HTN (hypertension): Plan Mr. Turner is a 62 year old gentleman with a complicated medical history notable for recurrent stroke with residual right hemiplegia, chronic paroxysmal atrial fibrillation, aortic stenosis, severe CAD s/p multiple PCIs and CABG, DMII, chronic decubitus ulcer complicated by recurrent infections who is admitted due to fever and recurrent infection. Fever Uncontrolled Pain Pt with occasional fevers, requiring repeated infectious work-ups. Most recent workup Nov - -WBC currently NOT elevated -chest xray 04/06- improved pulmonary vascular congestion and mild interstitial edema, small pleural effusions and noted opacities that are likely scars vs. infectious -repeat blood Cx x2 from 04/06- pending. One blood Cx from 04/01 positive for gram positive bacilli (likely contaminant) -sacral wound Cx from 04/03 growing MRSA -UA from 04/07- noted uric acid crystals, yeast present. Urine Cx 04/07 pending, urica acid level pending with AM labs -c diff 04/07- ordered and pending -respiratory panel 04/07 ordered and pending -AM ESR, CRP, D-dimer, procalcitonin ordered for possible inflammatory/blood clot cause of his fevers. In terms of clots, pt with noted splenic/renal infarcts in the past, recurrent strokes while on DAPT and anticoagulation. -Consider a neoplastic process as well as a possible fever cause- consider sandoval-scanning Started on empiric IV Daptomycin on 04/07 for 04/01 positive blood Cx, MRSA positive sacral wound Cx (noted that sacral wound has persistently grown MRSA) Await repeat blood Cx and urine Cx results, c diff and resp panel. Chest xray less likely infectious, continue to monitor respiratory need/oxygen saturations. Currently saturating well on RA. IV Lasix prn for pulmonary congestion/pleural effusions (one dose on 04/07) Started on diflucan 200mg daily for 14 doses for UA yeast results, continue to monitor qtc (pt also on other prolonging meds). EKG 04/06 with noted qtc of 450, not currently elevated at this time. Daily EKG's while on diflucan for qtc monitoring. Question of whether uncontrolled pain, especially with dressing changes has been causing fevers as well. -Pain management was consulted on 04/04- appreciate recs -recommended acetaminophen 650mg q8h scheduled and IV dialudid 0.25mg daily 15-30min prior to sacral wound dressing changes -Pt has been receiving acetaminophen 650mg q8h scheduled. -Pt was on dilaudid 0.25mg daily scheduled as recommended, but pt's has been declining for the past 2 days (04/06 and 04/07). -Discussion with pt's Nasreen on 04/07. Agreeable to tramadol at dose pt received and tolerated in the past. Per chart review, dose was tramadol 25mg. -Tramadol 25mg daily scheduled in place of previously scheduled dilaudid 0.25mg that has been refusing. -Ethics Committee previously consulted on 04/05 due to pt's 's refusal of ANY pain medications- appreciate recs -recommended that if pain control still an issue OR if the were to resume refusals, repeated attempts to educate on the following should be made: (1) safe use of pain meds (2) hospital checks and balances to help prevent overdoses/ensure safe use of meds (3) pain signs appear differently to medical team from what she as partner/layperson would consider pain in this pt who is unable to communicate (4) digging further into her beliefs/hesitation with providing pain relief that has not been addressed. 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 Case management also closely involved- appreciate efforts with placement for this patient. Leukocytosis *resolved Bacteruria Decubitus ulcer complicated by infection Fever workup and pain control as noted above General surgery was consulted this admission-no plans for debridement. Wound Care on board- pt occasionally off of wound vac to allow peripheral healing. ID consulted this admission- last recommendation 03/22. Advised at that time to discontinue antibiotics and monitor, with aggressive wound care/ Encourage barajas hygiene and maintenance Consider re-consult to ID for persistent fevers noted above. Hypernatremia Pt's sodium levels persistently elevated over the past 4 days. Consider Nephrology consult in the AM for further recs if persistent. Continue to monitor Pulmonary Edema *improved Pleural Effusions *improved Pt occasionally sounds more wet than usual Chest XRAY ordered 04/06- noted improving pulmonary edema, pleural effusions No increased oxygen need at this time, currently on RA Continue suctioning as able Continue to monitor volume status Respiratory doesn't feel there are further treatments/chest physio/other modalities to optimize status at 's request Continue Lasix 20mg PEG daily, one extra Lasix dose on 04/07 Continue to monitor kidney function while on lasix Eye discharge *resolved recurrent eye discharge, especially in left eye Completed course of poly trim for eyes, no further conjunctival injection or discharge noted Acute splenic infarct Chronic renal infarcts Noted on CT Abd/pelvis: "an acute splenic infarct measuring up to 6 mm with chronic renal infarcts and cortical scarring again noted." Continue therapeutic Lovenox Previous provider discussed with surgery on 03/17/2023: No further intervention needed for acute splenic infarct Hematuria *resolved Trent hematuria noted in the facility prior to this admission Likely secondary to trauma due to Barajas catheter CT scan of the chest and pelvis did show nonspecific thickening of the bladder wall Hematuria resolved Lovenox resumed without recurrence of hematuria CBC remains stable Aortic Stenosis H/O severe aortic stenosis chronic, Stable but need to closely monitor volume status Paroxysmal Atrial Fibrillation As per prior provider On the night of December 07 ; patient converted to atrial fibrillation with rapid ventricular response. He was startedamiodarone drip as per cardiology recommendation Converted back to sinus rhythm on December 08 after 5 hours. Repeat echocardiogram was done; found to have moderately reduced EF of 35 to 40% with severe Rate remains controlled without any cardiac symptoms Continue amiodarone, metoprolol On therapeutic dose of Lovenox SQ for anticoagulation Hx of CVA History of recurrent CVA despite DAPT and anticoagulation therapy Chronic right hemiplegia/left arm paralysis/mostly nonverbal/expressive aphasia/dysphagia with PEG tube Continue statin, Plavix/Lovenox BPH/LUTS Barajas in place Continue tamsulosin. DMII A1c of 6.6 in feb 2023 Continue Lantus, sliding scale insulin. HTN BP overall stable. Continue metoprolol. Resume lisinopril if BP remains high--pressure labile Right heel wound Wound culture showed Corynebacterium species Completed antibiotics on 03/06/2023 as per ID recommendations. Continue wound care Diet: cont enteral nutrition via PEG with free water flushes as scheduled. DVT prophylaxis: Therapeutic anticoagulation with Lovenox CODE STATUS: Full code Disposition-Appreciate CM efforts with placement Admission and Anticipated Discharge Date Admission Date: March 02, 2023 Physical Exam Physical Exam: General: moaning when addressed Psych: could not be determined Neuro: difficulty with movements HEENT: NC/AT Chest: Nontender to palpation. CV: RRR, blowing murmur Resp: no increased effort of breathing initially, breath sounds clear Abdomen: Soft, but pt moans whenever it is touched Results & Data Results & Data Vital Signs (Past 12 Hours) Vital Signs Temp Pulse Pulse Resp BP Pulse Ox O2 Del Method 04/08/23 16:44 78 04/08/23 16:06 36.7 C 04/08/23 15:10 39.4 C H 72 18 109/70 97 Room Air 04/08/23 11:00 37.2 C 72 17 115/67 96 Room Air 04/08/23 10:00 Room Air 04/08/23 07:54 81 04/08/23 07:15 37.7 C H 82 18 120/72 96 Room Air (1) Fever Fever type: unspecified Qualified Code(s): R50.9 - Fever, unspecified
--- NOTE | 2023-04-08 19:14 | CT Scan Report ---
ABDOMEN AND PELVIS CT WITH IV CONTRAST CT DOSE: 1487.08 mGy.cm HISTORY: Acute generalized abdominal pain with fever persistent fevers, r/o abscess TECHNIQUE: Multiaxial CT images of the abdomen and pelvis were performed following the IV administrat ion of 93 cc of Optiray, A dose lowering technique was utilized adhering to the principles of ALARA. COMPARISON STUDY: 03/17/2023 FINDINGS: Cardiomegaly. Prior median sternotomy. Small to moderate layering pleural effusions with mi ld dependent bibasilar consolidation and intralobular septal thickening. Limited exam secondary to up per abdomen repositioning and respiratory motion. 3.5 cm subacute splenic infarct again noted on image 102. Mildly atrophic pancreas. Unchanged mild no dular thickening of the adrenal glands. Mildly contracted gallbladder. The liver is within normal jones its. Patent portal vein. Chronic renal infarct redemonstrated. There is an acute right-sided renal in farct measuring 4.0 x 3.1 x 5.0 cm on image 154. 2.1 cm left renal cyst. Decompressed urinary bladder with wall thickening and Hagan catheter in place. Air within the bladder lumen is present. Prostatom egaly. Atherosclerosis of the aorta without aneurysm. There is no lymphadenopathy identified. No bowel obstr uction. A gastrostomy tube is in place. Fecal moderate to extensive fecal retention. Mild rectal wall thickening with perirectal stranding. The appendix is not visualized. Chronic sacral decubitus ulcer is again noted with extension to the posterior bony cortex of the sacrum and coccyx. Erosion involvi ng the posterior elements at L5 and also some the coccyx again noted with periosteal elevation and sc lerosis. Associated cellulitis without abscess. Mild superior endplate compression at L4 is unchanged . Heterotopic ossifications are noted adjacent to the proximal femora bilaterally extending into the adjacent musculature. IMPRESSION: 1. Chronic sacral decubitus ulcer with chronic sacrococcygeal osteomyelitis again noted. There is david lulitis without abscess. 2. Large acute right-sided renal infarct measures up to 5 cm. 3. Subacute splenic infarct with chronic renal infarcts and renal cortical scarring again noted. 4. No bowel obstruction. Constipation with stercoral proctitis. 5. Small to moderate pleural effusions with mild bibasilar consolidation. 6. Cardiomegaly with pulmonary edema. ACT 112: Negative or not required by law. The above report was generated using voice recognition software. It may contain grammatical, syntax o r spelling errors. Electronically signed by: Abdon Gr M.D. 04/08/2023 7:11 PM
[2023-04-08] MEDS ORDERED: MEROPENEM 500 MG in SYRINGE 0 ML IV SCH (20:00)
[2023-04-08] MEDS: ATORVASTATIN 40 MG TAB PEG SCH (20:21)
[2023-04-08] MEDS: PEPTAMEN INTENSE VHP 1.0 CAL 1,000 ML BAG PEG SCH (20:22)
--- NOTE | 2023-04-08 20:32 | Electrocardiogram Report ---
Test Reason : Blood Pressure : / mmHG Vent. Rate : 083 BPM Atrial Rate : 083 BPM P-R Int : 142 ms QRS Dur : 100 ms QT Int : 370 ms P-R-T Axes : 052 071 190 degrees QTc Int : 434 ms Normal sinus rhythm Possible Left atrial enlargement Cannot rule out Inferior infarct (cited on or before 13-OCT-2006) Cannot rule out Anterior infarct (cited on or before 13-OCT-2006) Abnormal ECG Confirmed by Tucker Pollard ([id number] on 04/08/2023 8:32:29 PM Referred By: REFERRED SELF Confirmed By:Bryon Pollard
[2023-04-08] MEDS ORDERED: LINEZOLID 600 MG TAB PO SCH (21:00)
[2023-04-08] MEDS ORDERED: CIPROFLOXACIN 500 MG TAB PEG SCH (21:00)
[2023-04-09] MEDS ORDERED: POLYETHYLENE (MIRALAX) 17 GM PACK PO SCH (09:00)
[2023-04-09] MEDS ORDERED: DAPTOmycin 500 MG in SYRINGE 0 ML IV SCH (10:00)
== END 2023-04-08 23:13 | disposition short-term general hospital (02) | DRG 698 ==
LOC: ED 00:20 → EDINP 03:56 → SUATTDRO 03:56 → SUPCPDRO 03:56 → 2W 20:31